=== PATIENT | male | born 1940 | race Caucasian/White ===

== ENCOUNTER 2016-04-03 10:07 | Emergency (ER) | payer MEDICARE ==
[~2016-04-03] VITALS: Ht 172.7 cm; Wt 90.7 kg
[~2016-04-03 10:07] MED LIST: AMLO10TA PO; AMLO10TA82 PO; ASP81TEC PO; ASPI-983 PO; Aspirin PO; CEPH-507 PO; CETI10TA17 PO; CLOP75TA PO; CLPD75T PO; COLE1TAB PO; DABI150C2 PO; DABI150C5 PO; DIGO0.12 PO; DIGO250T15 PO; DILT180C54 PO; DILT180C67 PO; DOCU-161 PO; FLUT16SP22 NS; FURO-125 PO; FURO40TA4 PO; GLUC-113 PO; GLUC1TAB PO; GLUCOSAMINE CONDROIT PO; HYDR-3812 PO; KCL PO; L.AC1CAP6 PO; LOPE2TAB34 PO; LOPERAMIDE 2 MG PO; LOSA25TA21 PO; MESA1.2T PO; METO100T2 PO; METO100T5 PO; MTP100TCR PO; MULT-1029 PO; MULT-298 PO; MULT1TAB63 PO; MUPI22OI2 TP; OMEG-12 PO; OMG1KC PO; POTA10TA PO; POTA20TA15 PO; POTA20TA7 PO; ROSU5TAB PO; SOTA80TA PO; TMSL.4C PO; [UNRECOGNIZED DRUG - OTHER] PO
--- OUTSIDE RECORDS SUMMARY | 2016-04-03 10:13 | XMS REPORT | Continuity of Care Document ---
Author Author [facility] Organization [facility] Address Unknown Phone Unavailable Care Team Providers Care Bandoleer Packer Name Role Phone Dario Parsons PCP [phone] Source Comments Some departments are not documenting in the electronic medical record. If you do not see the information that you expected, contact Release of Information in the Health Information Management department at [phone] for further assistance in locating additional records.[facility] Active Allergies and Adverse Reactions Not on File Current Medications Prescription Sig. Disp. Refills Start End Date Status Date rosuvastatin (CRESTOR) 5 Take 0.5 mg by mouth Active mg tablet daily. digoxin (LANOXIN) 250 mcg Take 0.25 mcg by mouth Active tablet daily. POTASSIUM CHLORIDE Take 20 mEq by mouth Active (KLOR-CON M20 PO) daily. FUROSEMIDE (LASIX PO) Take 40 mg by mouth Active daily. losartan (COZAAR) 25 mg Take 25 mg by mouth Active tablet daily. dabigatran (PRADAXA) 150 Take 150 mg by mouth Active mg capsule twice daily. ASPIRIN PO Take 81 mg by mouth Active daily. MULTIVITAMINS WITH Take by mouth daily. Active FLUORIDE (MULTI-VITAMIN PO) glucosamine(+) 500 mg tab Take 500 mg by mouth Active once. LOPERAMIDE HCL (IMODIUM Take by mouth. Half Active PO) tablet twice a day diltiazem CD (CARDIZEM Take 360 mg by mouth Active CD) 180 mg capsule daily. metoprolol (LOPRESSOR) Take 100 mg by mouth Active 100 mg tablet twice daily. Active Problems Problem Noted Date CHF (congestive heart failure) ([facility]) 03/15/2015 Overview: 03/30/08: CABG x5: EF 45-50%. 12/30/13: C: EF 45-50%. No PCI. Severe [place] CAD. 03/22/15: C: Severe multivessel atherosclerotic CAD. Normal LV size. Mild LV dysfunction EF 45%. No evidence of HF at rest. Previously stented proximal and middle LAD, widely patent, with no in-stent restenosis. Coronary artery disease involving coronary bypass graft of [place] heart with angina pectoris (HCC) HTN (hypertension) 03/15/2015 Hyperlipidemia 03/15/2015 Obesity 03/15/2015 Paroxysmal atrial fibrillation (HCC) 03/12/2015 Social History Tobacco Use Types Packs/Day Years Used Date Never Assessed Last Filed Vital Signs Vital Sign Reading Time Taken Blood Pressure 110/78 03/15/2015 3:03 PM GAMING DIRECTOR Pulse 94 03/15/2015 3:03 PM GAMING DIRECTOR Temperature - - Respiratory Rate - - Height 1.715 m (5' 7.5") 03/15/2015 3:03 PM GAMING DIRECTOR Weight 88.905 kg (196 lb) 03/15/2015 3:03 PM GAMING DIRECTOR Body Mass Index 30.23 03/15/2015 3:03 PM GAMING DIRECTOR Oxygen Saturation - - Plan of Care Health Maintenance Due Date Last Done Comments Physical (Comprehensive) 1947 Exam Pertussis Vaccine 1953 Tetanus Vaccine 07/28/1959 Colorectal Cancer 1992 Screening Shingles Vaccine 2002 Prevnar/Pneumovax (#1) 07/28/2007 Influenza Vaccine 12/02/2015 Results from Last 3 Months Not on file
[2016-04-03] MEDS ORDERED: DIGO250T (10:57)
[2016-04-03] MEDS ORDERED: CEFD300C3 (10:57)
[2016-04-03] MEDS ORDERED: ROSU5TAB9 (10:57)
--- NOTE | 2016-04-03 12:29 | Diagnostic Imaging Report ---
INDICATION: Cough x 3 weeks, night sweats. DISCUSSION: Two views of the chest were obtained with comparison made to 03/24/2015. The lungs remain hyperinflated, consistent with underlying COPD. Stable normal heart size. The left-sided pacemaker and median sternotomy are stable. No focal consolidation, pleural fluid, or pneumothorax. Age-related degenerative changes are noted throughout the thoracic spine. IMPRESSION: No acute cardiopulmonary process. Dictated by: Dictated on workstation # [id number]
--- NOTE | 2016-04-03 12:32 | ED Cough/URI ---
General Chief Complaint: Cough/Cold/Flu Symptoms Stated Complaint: SOB Nursing Triage Note: HAS HAD A COUGH FOR 2 WEEKS HAD RX CALLED IN BY [facility] BACK ON SUNDAY WENT TO URGENT CARE RECEIVED RX OF ANTIBIOTIC INHALER COUGH MEDS NOT ANY BETTER Source: patient, spouse History of Present Illness Time seen by provider: 11:50 Initial Comments C/O PRODUCTIVE COUGH AND CONGESTION FOR 3 WEEKS SEEN ON 03/21/16 FOR ROUTINE EXAM AND WAS GIVEN RX FOR MUCINEX--NO IMPROVEMENT RX FOR Z-PACK CALLED IN ON 03/28/16 WENT TO URGENT CARE ON 03/29/16 FOR SAME--GIVEN RX FOR SYMBICORT, CEFDINIR, COUGH SYRUP. AND Z-PACK WAS STOPPED PT HAS BEEN SHORT OF BREATH HURTS TO BREATHE HAS BEEN ILL WITH THE SAME, BUT NOT THIS BAD PT HAS HAD PNEUMONIA SEVERAL TIMES PCP: DR. BARILLAS Allergies and Home Medications Allergies Coded Allergies: montelukast (Unverified Adverse Reaction, Unknown, 12/17/15) Hallucinations per pt Home Medications Aspirin 81 Mg Tablet.dr 81 MG PO DAILY (Reported) Benzonatate 100 Mg Capsule #30 1-2 TAB PO TID Prescribed by: CHAUNCEY ROSS on 04/03/16 1244 Cefdinir 300 Mg Capsule #20 (Reported) Cephalexin 500 Mg Capsule 10Days 1 CAP PO TID Prescribed by: WANDA BEAVERS on 12/17/15 1158 Cetirizine HCl 10 Mg Tablet 10 MG PO DAILY (Reported) Dabigatran Etexilate Mesylate 150 Mg Capsule 150 MG PO BID (Reported) Digoxin 250 Mcg Tablet 250 MCG PO EVERY EVENING (Reported) Digoxin 250 Mcg Tablet #90 (Reported) Diltiazem HCl 180 Mg Cap.er.24h 360 MG PO DAILY (Reported) TAKES 2 (180 MG) CAPS Fluticasone Propionate 16 Gm [place].susp 1 SPRAY NS BID (Reported) Furosemide 40 Mg Tablet 40 MG PO DAILY (Reported) Gluc 2KCL/Chondr/[place] Hy/Hy Ac 1 Each Capsule 1 CAP PO EVERY EVENING (Reported) Hydrocodone/Acetaminophen 1 Each Tablet #40 1-2 TAB PO Q4H PRN PRN PAIN Prescribed by: WANDA BEAVERS on 12/17/15 1158 L.acidoph & Paracasei,B.lactis 1 Each Capsule 1 CAP PO EVERY EVENING (Reported) Levofloxacin 500 Mg Tablet #10 500 MG PO DAILY Prescribed by: CHAUNCEY ROSS on 04/03/16 1244 Loperamide HCl 2 Mg Tablet 1 MG PO BID (Reported) WILL HOLD IF HE DOESN'T THINK HE NEEDS IT Losartan Potassium 25 Mg Tablet 25 MG PO EVERY EVENING (Reported) Methylprednisolone 4 Mg Tab.ds.pk #1 4 MG PO UD Prescribed by: CHAUNCEY ROSS on 04/03/16 1244 Metoprolol Tartrate 100 Mg Tablet 100 MG PO BID (Reported) Mu-Vits-Min Th/Lycopene/Lutein 1 Each Tablet 1 TAB PO EVERY EVENING (Reported) Mupirocin 22 Gm Oint...g. #1 1 APPLIC TP BID Apply twice a day to scalp and Left ear incisions Prescribed by: WANDA BEAVERS on 12/17/15 1158 Potassium Chloride 20 Meq Tab.er.prt 20 MEQ PO DAILY (Reported) Promethazine HCl/Codeine 118 Ml Syrup #300 5-10 ML PO Q4H Prescribed by: CHAUNCEY ROSS on 04/03/16 1244 Rosuvastatin Calcium 5 Mg Tablet 2.5 MG PO EVERY EVENING (Reported) TAKES 1/2 OF A (5 MG) TABLET Rosuvastatin Calcium 5 Mg Tablet #45 (Reported) Constitutional: see HPI diaphoresis fever EENTM: nose congestion see HPI Respiratory: see HPI cough phlegm short of breath Cardiovascular: no symptoms reportedNo chest pain Gastrointestinal: no symptoms reported Genitourinary: no symptoms reported Musculoskeletal: no symptoms reported Skin: no symptoms reported Psychiatric/Neurological: No Symptoms Reported Hematologic/Lymphatic: No Symptoms Reported Immunological/Allergic: no symptoms reported Past Dgdlsgl-Ffjawk-Hzaesx Hx Patient Social History Alcohol Use: Denies Use Recreational Drug Use: No Smoking Status: Former Smoker Type Used: Cigarettes Former Smoker/When Quit: Dec 30, 2008 Recent Foreign Travel: No Contact w/Someone Who Travel: No Recent Infectious Disease Expo: No Recent Hopitalizations: Yes Physical Abuse Screen: No Sexual Abuse: No Immunizations Up To Date Date of Pneumonia Vaccine: Jan 01, 2008 Date of Influenza Vaccine: Dec 31, 2014 Surgeries HX Surgeries: Yes (5 VESSEL CABG, PACEMAKER X2, STENTS X2) Surgeries: Cardiac, CABG, Coronary Stent, Pacemaker Respiratory Hx Respiratory Disorders: Yes (BI-PAP) Respiratory Disorders: Sleep Apnea Cardiovascular Hx Cardiac Disorders: Yes (PACER, STENTS, BYPASS) Cardiac Disorders: Coronary Artery Disease Neurological Hx Neurological Disorders: No Reproductive System Hx Reproductive Disorders: No Sexually Transmitted Disease: No HIV/AIDS: No Genitourinary Hx Genitourinary Disorders: No Gastrointestinal Hx Gastrointestinal Disorders: Yes Gastrointestinal Disorders: Colitis, Gastroesophageal Reflux, Chronic Diarrhea Musculoskeletal Hx Musculoskeletal Disorders: No Endocrine Hx Endocrine Disorders: No HEENT HX ENT Disorders: Yes (READING GLASSES, PARTIAL DENTURES) Loss of Vision: Bilateral Hearing Impairment: Denies Cancer Hx Cancer: Yes (SKIN CANCER) Cancer: Skin Psychosocial Hx Psychiatric Problems: No Integumentary HX Skin/Integumentary Disorder: No Blood Transfusions Hx Blood Disorders: No Adverse Reaction to a Blood Tr: No Family Medical History Family Medial History: Arthritis Cardiovascular disease Physical Exam Vital Signs Vital Sign - Last 12Hours 04/03/16 10:45 Temp 97.2 Pulse 72 Resp 18 B/P 138/88 Pulse Ox 96 O2 Delivery Room Air Capillary Refill : Less Than 3 Seconds General Appearance: WD/WN no apparent distress other (FREQUENT LOOSE COUGH) HEENT: PERRL/EOMI other (NASAL CONGESTION) Neck: non-tender full range of motion supple normal inspection Respiratory: no respiratory distress no accessory muscle use rales (LEFT BASE) Cardiovascular: normal peripheral pulses regular rate, rhythm no edema no JVD no murmur Gastrointestinal: normal bowel sounds non tender soft Extremities: normal inspection no pedal edema no calf tenderness normal capillary refill Neurologic/Psychiatric: washerette machine operator II-XII nml as tested no motor/sensory deficits alert normal mood/affect oriented x 3 Skin: normal color warm/dry Progress/Results/Core Measures Results/Orders Micro Results Microbiology 04/03/16 Influenza Types A,B Antigen (NEAL) - Final, Complete My Orders Orders-CHAUNCEY ROSS DO Influenza A And B Antigens (04/03/16 11:13) Chest Pa/Lat (2 View) (04/03/16 12:02) Methylprednisolone Sod Succ (Solu-Medrol (04/03/16 12:40) Ceftriaxone Injection (Rocephin Injectio (04/03/16 12:45) Lidocaine 1% Injection (Xylocaine 1% Inj (04/03/16 12:45) Vital Signs/I&O Vital Sign - Last 12Hours 04/03/16 04/03/16 10:45 13:08 Temp 97.2 Pulse 72 66 Resp 18 18 B/P 138/88 Pulse Ox 96 94 O2 Delivery Room Air Room Air Blood Pressure Mean: 105 Diagnostic Imaging Comments CXR--NO ACUTE PROCESS PER RADIOLOGIST REPORT Departure Impression Impression: Primary Impression: Bronchitis Additional Impression: Upper respiratory infection Disposition: 01 HOME, SELF-CARE Condition: Stable Departure-Patient Inst. Referrals: CODEY BARILLAS MD (PCP/Family) Primary Care Physician Patient Instructions: Acute Bronchitis, Adult (DC), Bacterial Upper Respiratory Infection, Adult (DC) Add. Discharge Instructions: TYLENOL AND MOTRIN NEEDED FOR PAIN OR FEVER LOTS OF CLEAR LIQUIDS STOP CEFDINIR CONTINUE SYMBICORT FOLLOW UP WITH YOUR DR IN 3-4 DAYS FOR FURTHER CARE All discharge instructions reviewed with patient and/or family. Voiced understanding. Scripts Benzonatate (Tessalon Perle)100 Mg Capsule1-2 Tab PO TID Cough #30 CAP Prov:CHAUNCEY ROSS DO 04/03/16 Promethazine HCl/Codeine (Promethazine-Codeine Syrup)118 Ml Syrup5-10 Ml PO Q4H Cough #300 ML Prov:CHAUNCEY ROSS DO 04/03/16 Methylprednisolone (Medrol)4 Mg Tab.ds.pk4 Mg PO UD #1 PKG Prov:CHAUNCEY ROSS DO 04/03/16 Levofloxacin (Levaquin)500 Mg Osoocn223 Mg PO DAILY INFECTION #10 TAB Prov:CHAUNCEY ROSS DO 04/03/16 CHAUNCEY ROSS DO Apr 03, 2016 12:32
[2016-04-03] MEDS ORDERED: methylPREDNISolone 125 MG (Solu-MEDROL) VIAL IM STA (12:40)
[2016-04-03] MEDS ORDERED: LEVO500T2 PO (12:44)
[2016-04-03] MEDS ORDERED: METH4TAB PO (12:44)
[2016-04-03] MEDS ORDERED: BENZ-13 PO (12:44)
[2016-04-03] MEDS ORDERED: CODE118S2 PO (12:44)
[2016-04-03] MEDS ORDERED: LIDOCAINE 1% INJ 20 ML (XYLOCAINE) VIAL INJ ONE (12:45)
[2016-04-03] MEDS ORDERED: cefTRIAXone 1 GM (ROCEPHIN) VIAL IM ONE (12:45)
[2016-04-03 13:08] VITALS: BP 130/79
[2016-06-14] MEDS ORDERED: HYDR-3820 PO (12:40)
== END 2016-04-03 13:11 | disposition home or self-care (01) ==
LOC: EDUNIT# 10:07 → ER 10:09
DX: J20.9 Acute bronchitis, unspecified (principal); J06.9 Acute upper respiratory infection, unspecified; I10 Essential (primary) hypertension; Z79.899 Other long term (current) drug therapy; Z79.82 Long term (current) use of aspirin; Z95.1 Presence of aortocoronary bypass graft; Z95.5 Presence of coronary angioplasty implant and graft; Z95.0 Presence of cardiac pacemaker
CPT/HCPCS: 71020; 87804; 96372

== ENCOUNTER 2016-04-27 19:54 | Outpatient (CLI) | payer MEDICARE ==
[~2016-04-27 19:54] MED LIST changes: +BENZ-13 PO; +CEFD300C3; +CODE118S2 PO; +DIGO250T; +LEVO500T2 PO; +METH4TAB PO; +ROSU5TAB9
--- OUTSIDE RECORDS SUMMARY | 2016-04-27 20:17 | XMS REPORT | Continuity of Care Document ---
Author Author [facility] Organization [facility] Address Unknown Phone Unavailable Care Team Providers Care Utility Worker Driver Name Role Phone Dario Parsons PCP [phone] Source Comments Some departments are not documenting in the electronic medical record. If you do not see the information that you expected, contact Release of Information in the Health Information Management department at [phone] for further assistance in locating additional records.[facility] Active Allergies and Adverse Reactions Not [...] Problem Noted Date CHF (congestive heart failure) ([facility]) 03/15/2015 Overview: 03/30/08: CABG x5: EF 45-50%. 12/30/13: C: EF 45-50%. No PCI. Severe [place] CAD. 03/22/15: C: Severe multivessel atherosclerotic CAD. Normal LV size. Mild LV dysfunction EF 45%. No evidence of HF at rest. Previously stented proximal and middle LAD, widely patent, with no in-stent restenosis. Coronary artery disease involving coronary bypass graft of [place] heart with angina pectoris (HCC) HTN (hypertension) 03/15/2015 Hyperlipidemia 03/15/2015 Obesity 03/15/2015 Paroxysmal atrial fibrillation (HCC) 03/12/2015 Social History Tobacco Use Types Packs/Day Years Used Date Never Assessed Last Filed Vital Signs Vital Sign Reading Time Taken Blood Pressure 110/78 03/15/2015 3:03 PM LEAD SCIENTIST Pulse 94 03/15/2015 3:03 PM LEAD SCIENTIST Temperature - - Respiratory Rate - - Height 1.715 m (5' 7.5") 03/15/2015 3:03 PM LEAD SCIENTIST Weight 88.905 kg (196 lb) 03/15/2015 3:03 PM LEAD SCIENTIST Body Mass Index 30.23 03/15/2015 3:03 PM LEAD SCIENTIST Oxygen Saturation - - Plan of Care Health Maintenance Due Date Last Done Comments Physical (Comprehensive) 1947 Exam Pertussis Vaccine 1953 Tetanus Vaccine 07/28/1959 Colorectal Cancer 1992 Screening Shingles Vaccine 2002 Prevnar/Pneumovax (#1) 07/28/2007 Influenza Vaccine 12/02/2015 Results from Last 3 Months Not on file
--- OUTSIDE RECORDS SUMMARY | 2016-04-27 20:18 | XMS REPORT | Continuity of Care Document ---
Author Author [facility] Organization [facility] Address Unknown Phone Unavailable Care Team Providers Care Pharmacy Delivery Driver Name Role Phone Dario Parsons PCP [phone] Source Comments Some departments are not documenting in the electronic medical record. If you do not see the information that you expected, contact Release of Information in the Health Information Management department at [phone] for further assistance in locating additional records.[facility] Active Allergies and Adverse Reactions Not [...] Problem Noted Date CHF (congestive heart failure) ([facility]) 03/15/2015 Overview: 03/30/08: CABG x5: EF 45-50%. 12/30/13: C: EF 45-50%. No PCI. Severe [place] CAD. 03/22/15: C: Severe multivessel atherosclerotic CAD. Normal LV size. Mild LV dysfunction EF 45%. No evidence of HF at rest. Previously stented proximal and middle LAD, widely patent, with no in-stent restenosis. Coronary artery disease involving coronary bypass graft of [place] heart with angina pectoris (HCC) HTN (hypertension) 03/15/2015 Hyperlipidemia 03/15/2015 Obesity 03/15/2015 Paroxysmal atrial fibrillation (HCC) 03/12/2015 Social History Tobacco Use Types Packs/Day Years Used Date Never Assessed Last Filed Vital Signs Vital Sign Reading Time Taken Blood Pressure 110/78 03/15/2015 3:03 PM ROCKET ENGINE TESTER Pulse 94 03/15/2015 3:03 PM ROCKET ENGINE TESTER Temperature - - Respiratory Rate - - Height 1.715 m (5' 7.5") 03/15/2015 3:03 PM ROCKET ENGINE TESTER Weight 88.905 kg (196 lb) 03/15/2015 3:03 PM ROCKET ENGINE TESTER Body Mass Index 30.23 03/15/2015 3:03 PM ROCKET ENGINE TESTER Oxygen Saturation - - Plan of Care Health Maintenance Due Date Last Done Comments Physical (Comprehensive) 1947 Exam Pertussis Vaccine 1953 Tetanus Vaccine 07/28/1959 Colorectal Cancer 1992 Screening Shingles Vaccine 2002 Prevnar/Pneumovax (#1) 07/28/2007 Influenza Vaccine 12/02/2015 Results from Last 3 Months Not on file
[2016-06-14] MEDS ORDERED: HYDR-3820 PO (12:40)
== END 2016-04-28 06:15 | disposition home or self-care (01) ==
LOC: SLEEP 19:54
PROVIDERS: ATTEND Nurse Practitioner Family
DX: G47.33 Obstructive sleep apnea (adult) (pediatric) (principal)
CPT/HCPCS: 95811

== ENCOUNTER 2016-06-08 12:19 | Outpatient (CLI) | payer MEDICARE ==
[~2016-06-08] VITALS: Ht 172.7 cm; Wt 89.6 kg
--- OUTSIDE RECORDS SUMMARY | 2016-06-08 12:24 | XMS REPORT | Continuity of Care Document ---
Author Author [facility] Organization [facility] Address Unknown Phone Unavailable Care Team Providers Care Line Out Man Name Role Phone Dario Parsons PCP [phone] Source Comments Some departments are not documenting in the electronic medical record. If you do not see the information that you expected, contact Release of Information in the Health Information Management department at [phone] for further assistance in locating additional records.[facility] Active Allergies and Adverse Reactions Not [...] Problem Noted Date CHF (congestive heart failure) ([facility]) 03/15/2015 Overview: 03/30/08: CABG x5: EF 45-50%. 12/30/13: C: EF 45-50%. No PCI. Severe [place] CAD. 03/22/15: C: Severe multivessel atherosclerotic CAD. Normal LV size. Mild LV dysfunction EF 45%. No evidence of HF at rest. Previously stented proximal and middle LAD, widely patent, with no in-stent restenosis. Coronary artery disease involving coronary bypass graft of [place] heart with angina pectoris (HCC) HTN (hypertension) 03/15/2015 Hyperlipidemia 03/15/2015 Obesity 03/15/2015 Paroxysmal atrial fibrillation (HCC) 03/12/2015 Social History Tobacco Use Types Packs/Day Years Used Date Never Assessed Last Filed Vital Signs Vital Sign Reading Time Taken Blood Pressure 110/78 03/15/2015 3:03 PM AIRPLANE PILOT PHOTOGRAMMETRY Pulse 94 03/15/2015 3:03 PM AIRPLANE PILOT PHOTOGRAMMETRY Temperature - - Respiratory Rate - - Height 1.715 m (5' 7.5") 03/15/2015 3:03 PM AIRPLANE PILOT PHOTOGRAMMETRY Weight 88.905 kg (196 lb) 03/15/2015 3:03 PM AIRPLANE PILOT PHOTOGRAMMETRY Body Mass Index 30.23 03/15/2015 3:03 PM AIRPLANE PILOT PHOTOGRAMMETRY Oxygen Saturation - - Plan of Care Health Maintenance Due Date Last Done Comments Physical (Comprehensive) 1947 Exam Pertussis Vaccine 1953 Tetanus Vaccine 07/28/1959 Colorectal Cancer 1992 Screening Shingles Vaccine 2002 Prevnar/Pneumovax (#1) 07/28/2007 Influenza Vaccine 12/02/2015 Results from Last 3 Months Not on file
[2016-06-08] MEDS ORDERED: LOPE2CAP14 PO (12:45)
[2016-06-08] MEDS ORDERED: LACT1CAP74 PO (12:45)
[2016-06-08 12:59] VITALS: BP 123/78
[2016-06-14] MEDS ORDERED: HYDR-3820 PO (12:40)
== END 2016-06-08 13:30 | disposition home or self-care (01) ==
LOC: PREOP 12:19
PROVIDERS: ATTEND Surgery
DX: Z01.818 Encounter for other preprocedural examination (principal); C43.59 Malignant melanoma of other part of trunk
CPT/HCPCS: 87081

== ENCOUNTER 2016-06-14 10:12 | Day surgery (SDC) | payer MEDICARE ==
[~2016-06-14] VITALS: Ht 172.7 cm; Wt 89.6 kg
[~2016-06-14 10:12] MED LIST changes: +LACT1CAP74 PO; +LOPE2CAP14 PO
--- OUTSIDE RECORDS SUMMARY | 2016-06-14 10:15 | XMS REPORT | Continuity of Care Document ---
Author Author [facility] Organization [facility] Address Unknown Phone Unavailable Care Team Providers Care Pump Attendant Name Role Phone Dario Parsons PCP [phone] Source Comments Some departments are not documenting in the electronic medical record. If you do not see the information that you expected, contact Release of Information in the Health Information Management department at [phone] for further assistance in locating additional records.[facility] Active Allergies and Adverse Reactions Not [...] Problem Noted Date CHF (congestive heart failure) ([facility]) 03/15/2015 Overview: 03/30/08: CABG x5: EF 45-50%. 12/30/13: C: EF 45-50%. No PCI. Severe [place] CAD. 03/22/15: C: Severe multivessel atherosclerotic CAD. Normal LV size. Mild LV dysfunction EF 45%. No evidence of HF at rest. Previously stented proximal and middle LAD, widely patent, with no in-stent restenosis. Coronary artery disease involving coronary bypass graft of [place] heart with angina pectoris (HCC) HTN (hypertension) 03/15/2015 Hyperlipidemia 03/15/2015 Obesity 03/15/2015 Paroxysmal atrial fibrillation (HCC) 03/12/2015 Social History Tobacco Use Types Packs/Day Years Used Date Never Assessed Last Filed Vital Signs Vital Sign Reading Time Taken Blood Pressure 110/78 03/15/2015 3:03 PM BOTTLE CASER Pulse 94 03/15/2015 3:03 PM BOTTLE CASER Temperature - - Respiratory Rate - - Height 1.715 m (5' 7.5") 03/15/2015 3:03 PM BOTTLE CASER Weight 88.905 kg (196 lb) 03/15/2015 3:03 PM BOTTLE CASER Body Mass Index 30.23 03/15/2015 3:03 PM BOTTLE CASER Oxygen Saturation - - Plan of Care Health Maintenance Due Date Last Done Comments Physical (Comprehensive) 1947 Exam Pertussis Vaccine 1953 Tetanus Vaccine 07/28/1959 Colorectal Cancer 1992 Screening Shingles Vaccine 2002 Prevnar/Pneumovax (#1) 07/28/2007 Influenza Vaccine 12/02/2015 Results from Last 3 Months Not on file
--- OUTSIDE RECORDS SUMMARY | 2016-06-14 10:16 | XMS REPORT | Continuity of Care Document ---
Author Author [facility] Organization [facility] Address Unknown Phone Unavailable Care Team Providers Care Medical Clinic Manager Name Role Phone Dario Parsons PCP [phone] Source Comments Some departments are not documenting in the electronic medical record. If you do not see the information that you expected, contact Release of Information in the Health Information Management department at [phone] for further assistance in locating additional records.[facility] Active Allergies and Adverse Reactions Not [...] Problem Noted Date CHF (congestive heart failure) ([facility]) 03/15/2015 Overview: 03/30/08: CABG x5: EF 45-50%. 12/30/13: C: EF 45-50%. No PCI. Severe [place] CAD. 03/22/15: C: Severe multivessel atherosclerotic CAD. Normal LV size. Mild LV dysfunction EF 45%. No evidence of HF at rest. Previously stented proximal and middle LAD, widely patent, with no in-stent restenosis. Coronary artery disease involving coronary bypass graft of [place] heart with angina pectoris (HCC) HTN (hypertension) 03/15/2015 Hyperlipidemia 03/15/2015 Obesity 03/15/2015 Paroxysmal atrial fibrillation (HCC) 03/12/2015 Social History Tobacco Use Types Packs/Day Years Used Date Never Assessed Last Filed Vital Signs Vital Sign Reading Time Taken Blood Pressure 110/78 03/15/2015 3:03 PM COMPRESSOR BATTERY PELLETS Pulse 94 03/15/2015 3:03 PM COMPRESSOR BATTERY PELLETS Temperature - - Respiratory Rate - - Height 1.715 m (5' 7.5") 03/15/2015 3:03 PM COMPRESSOR BATTERY PELLETS Weight 88.905 kg (196 lb) 03/15/2015 3:03 PM COMPRESSOR BATTERY PELLETS Body Mass Index 30.23 03/15/2015 3:03 PM COMPRESSOR BATTERY PELLETS Oxygen Saturation - - Plan of Care Health Maintenance Due Date Last Done Comments Physical (Comprehensive) 1947 Exam Pertussis Vaccine 1953 Tetanus Vaccine 07/28/1959 Colorectal Cancer 1992 Screening Shingles Vaccine 2002 Prevnar/Pneumovax (#1) 07/28/2007 Influenza Vaccine 12/02/2015 Results from Last 3 Months Not on file
[2016-06-14] MEDS ORDERED: ceFAZolin 1,000 MG (ANCEF) VIAL ONE (10:41)
[2016-06-14] MEDS ORDERED: ceFAZolin 2 GM/50 ML NS 50 ML IV ONE (10:43)
[2016-06-14] MEDS ORDERED: FAMOTIDINE 20MG/2ML IV (PEPCID) ONE (10:45)
[2016-06-14] MEDS ORDERED: ceFAZolin 2 GM/NS 50 ML IV ONE (11:00)
[2016-06-14] MEDS ORDERED: LACTATED RINGERS 1,000 ML IV PRN (11:12)
[2016-06-14] MEDS ORDERED: MIDAZOLAM 2 MG/2 ML (VERSED) VIAL ONE (11:15)
[2016-06-14] MEDS ORDERED: ROCURONIUM 50 MG/5 ML (ZEMURON) VIAL IV ONE (11:15)
[2016-06-14] MEDS ORDERED: LIDOCAINE PF 2% 10 ML (XYLOCAINE) AMP ONE (11:15)
[2016-06-14] MEDS ORDERED: FAMOTIDINE 20MG/2ML IV (PEPCID) IV ONE (11:15)
[2016-06-14] MEDS ORDERED: proPOfol 200 MG/20 ML (DIPRIVAN) VIAL IV ONE (11:15)
[2016-06-14] MEDS ORDERED: ONDANSETRON 4 MG/2 ML (SDV) Z0FRAN ONE (11:15)
[2016-06-14] MEDS ORDERED: LACTATED RINGERS 1,000 ML IV ONE ×2 (11:15→12:41)
[2016-06-14] MEDS ORDERED: SUCCINYLCHOLINE INJ 100 MG/5 ML SYR ONE (11:15)
[2016-06-14] MEDS ORDERED: fentaNYL INJECTION 100 MCG/2 ML AMP ONE (11:16)
[2016-06-14 11:20] VITALS: BP 147/96
[2016-06-14] MEDS ORDERED: BUP/EPI 0.25% 1:200,000 (MARCAINE) 30 ML VIAL ONE (11:25)
--- NOTE | 2016-06-14 11:32 | Progress Note-Pre Operative ---
Pre-Operative Progress Note H&P Reviewed The H&P was reviewed, patient examined and no changes noted. Date H&P Reviewed: Jun 14, 2016 Time H&P Reviewed: 11:31 Pre-Operative Diagnosis: melanoma MACARIO BENJAMIN DO Jun 14, 2016 11:32
--- NOTE | 2016-06-14 12:38 | Progress Note-Post Operative ---
Post-Operative Progess Note Patent Solicitor none Pre-Operative Diagnosis melanoma Post-Operative Diagnosis same pending pathology Post-Op Procedure Note Date of Procedure: Jun 14, 2016 Name of Procedure: Wide excision of Melanoma Anesthesia Type GET Estimated blood loss (mL): less than 10cc Specimen(s) collected melanoma and surrounding tissue MACARIO BENJAMIN DO Jun 14, 2016 12:38
[2016-06-14] MEDS ORDERED: HYDR-3820 PO (12:40)
[2016-06-14] MEDS ORDERED: GLYCOPYRROLATE 0.2 MG/ML (ROBINUL) 2 ML VIAL ONE (12:41)
[2016-06-14] MEDS ORDERED: NEOSTIGMINE (BLOXIVERZ ) 1 MG/1ML 10 ML VIAL ONE (12:41)
[2016-06-14] MEDS ORDERED: SEVOFLURANE (ULTANE) 15 ML INHAL SOLN ONE (12:41)
--- NOTE | 2016-06-14 12:42 | Discharge Inst-Surgical ---
Discharge Inst-Surgical Depart Medication/Instructions New, Converted or Re-Newed RX: RX Given to Pt/Family Patient Instructions Follow up Appt: Make appointment for 1 week. Instructions: No lifting greater than 10 pounds. No strenuous activity. May shower in 24 hours, no tub bath or soaking. Use incentive spirometer at home as directed. No Smoking Skin/Wound Care: May remove bandages. Symptoms to Report: Appetite Changes, Extremity Discoloration, Numbness/Tingling, Swelling Increased , Bleeding Excessive, Eyesight Changes, Pain Increased, Urine Color Change, Constipation(Persistent), Fever over 101 degree F, Pain/Pressure in chest, Urinating Difficulty, Cough Up/Vomit Blood, Heart Beat Irreg/Pounding, Pain/ Pressure in jaw, Cramps in feet or legs, Lightheadedness, Pain/Pressure in shoulder, Diarrhea(Persistent), Memory Changes Suddenly, Questions/Concerns, Weight gain consecutive days, Dizziness/Fainting, Nausea/Vomiting, Shortness of Breath, Weight gain over 2 pounds If questions or concerns contact your physician Or seek help at emergency department. Activity Driving Instructions: No Driving/Refer to Dr. Saravia Discharge Diet: No Restrictions If Any Problems/Questions/Issu: Contact Your Physician, Go to Emergency Room Skin/Wound Care Infection Signs and Symptoms: Increased Redness, Foul Odor of Wound, Increased Drainage, Increased Swelling, Temperature Above 101 F Bathing Instructions: Shower Operative Area Clean and Dry: You May Remove Bandage (in am 3/16) Ice Pack: Ice On and Off Site MACARIO BENJAMIN DO Jun 14, 2016 12:42
[2016-06-14] MEDS ORDERED: HYDROcodone/APAP 10 MG/325 MG (LORTAB) TAB PO PRN (12:45)
[2016-06-14] MEDS ORDERED: ONDANSETRON 4 MG/2 ML (SDV) Z0FRAN IVP PRN (13:00)
[2016-06-14] MEDS ORDERED: MEPERIDINE (DEMEROL) INJ 50 MG/ML IVP PRN (13:00)
[2016-06-14] MEDS ORDERED: morphine INJ 10 MG/ML 1ML (SYR OR VIAL) IVP PRN (13:00)
[2016-06-14 13:45] VITALS: BP 136/84
[2016-06-14 14:15] VITALS: BP 120/78
[2016-06-14 14:40] VITALS: BP 124/78
--- NOTE | 2016-06-15 11:09 | OPERATIVE REPORT ---
PROCEDURE PHYSICIAN: MACARIO MONROY DATE OF PROCEDURE: 06/14/2016 PREOPERATIVE DIAGNOSIS: Melanoma. POSTOPERATIVE DIAGNOSIS: Melanoma. PROCEDURE: Wide excision with extensive undermining SURGEON: Dr. Monroy HOT HEADER OPERATOR: None. ANESTHESIA: General endotracheal tube. SPECIMEN: Melanoma and surrounding tissue. BLOOD LOSS: Less than 10 mL. FLUIDS: Per anesthesia. POSTOPERATIVE: Stable. INDICATION FOR THE PROCEDURE: The patient is a 75-year-old male who had a shave excision done, which showed invasive melanoma down 0.93 mm and needed wide excision. The patient refusing any type of lymph node dissection. FINDINGS: The patient had a melanoma removed and sent to pathology. PROCEDURE NOTE: After informed consent was obtained patient brought to the operating room. He was intubated, placed on table in prone position. He was then sterilely prepped and draped in the normal fashion. I elected to do a rhomboid type incision with a Limberg flap measured this, it was about 4 cm x 3.5 cm on each side making sure to get 1 cm margins around this area of previous excision and then doing the rhomboid incision out distally. Injected with local, then on the area previously drawn made an incision with a number 15 blade, carried down through skin into subcutaneous tissue, deepened down the subcutaneous tissue with Bovie electrocautery. Taking this large area of melanoma and the surrounding tissue off then made an incision to create the flap; again this is a parallelogram incision. Then extensively undermined this flap and then under the edges of the flap going about 2.5 cm out along this whole area. Each side of the parallelogram measured about 4 cm, although one side was 4 centimeters and the other side was 3.5. This extensive undermining was a greater than 60 cm of undermining. Once undermined able to then bring the flap together, rotated the flap into the area of dissection. Used a 0 Prolene at the 3 strongest points to hold this in place. Did a vertical mattress suture to hold this. And then in between this used to 2-0 nylon; used a total of 16 sutures to close this. The area was then cleaned and dried, Dressings placed. The patient was then transferred to recovery room in stable condition. Sponge, instrument and needle correct at the end of the case. Job ID: [id number] Dictated Date: 06/14/2016 15:20:07 Benefits Administrator Date: 06/15/2016 10:58:38 / [email or web address]
== END 2016-06-14 14:40 | disposition home or self-care (01) ==
LOC: SDC 10:12
PROVIDERS: ATTEND Surgery
DX: C43.59 Malignant melanoma of other part of trunk (principal)
CPT/HCPCS: 88305

== ENCOUNTER 2016-07-19 20:46 | Outpatient (CLI) | payer MEDICARE ==
[~2016-07-19 20:46] MED LIST changes: +HYDR-3820 PO
== END 2016-07-20 04:40 | disposition home or self-care (01) ==
LOC: SLEEP 20:46
PROVIDERS: ATTEND Nurse Practitioner Family
DX: G47.33 Obstructive sleep apnea (adult) (pediatric) (principal)
CPT/HCPCS: 95811

== ENCOUNTER → 2016-11-06 | Outpatient (CLI) | payer MEDICARE ==
--- NOTE | 2016-11-06 16:37 | Diagnostic Imaging Report ---
EXAMINATION: PA and lateral views of the chest. COMPARISON: 04/03/2016. INDICATION: Cough and shortness of breath. FINDINGS: The lungs are hyperinflated. There is no significant consolidation. The heart size is normal. No effusion or pneumothorax. The mediastinum and velvet appear unremarkable. Post CABG changes, sternotomy wires, and a pacemaker with two cardiac leads are seen. IMPRESSION: Hyperinflated clear lungs. Dictated by: Dictated on workstation # [id number]
== END ==
LOC: RAD 15:24
PROVIDERS: ATTEND Nurse Practitioner Family
DX: R05 Cough (principal); R06.02 Shortness of breath; Z95.1 Presence of aortocoronary bypass graft; Z95.0 Presence of cardiac pacemaker
CPT/HCPCS: 71020

== ENCOUNTER → 2017-04-10 | Outpatient (CLI) | payer MEDICARE ==
[~2017-04-10] MED LIST changes: +ACHD5005 PO; -HYDR-3812 PO; +METO100T12 PO
--- NOTE | 2017-04-10 15:05 | Diagnostic Imaging Report ---
INDICATION: Cough and pneumonia EXAMINATION: PA and lateral chest There are postop changes from CABG surgery. Patient has a dual-chamber pacemaker. Heart size and pulmonary vascularity are normal. Lungs are clear. There are no effusions or pneumothoraces. IMPRESSION: Post surgical changes in the chest. No acute abnormalities. Dictated by: Dictated on workstation # [id number]
== END ==
LOC: RAD 13:47
PROVIDERS: ATTEND Family Medicine
DX: J18.9 Pneumonia, unspecified organism (principal); J44.9 Chronic obstructive pulmonary disease, unspecified; Z95.1 Presence of aortocoronary bypass graft; Z95.0 Presence of cardiac pacemaker
CPT/HCPCS: 71046

== ENCOUNTER 2018-08-31 14:04 | Inpatient (IN) | payer MEDICARE ==
[~2018-08-31] VITALS: Ht 172.7 cm; Wt 95.3 kg
[~2018-08-31 14:04] MED LIST changes: +APIX5TAB PO; -BENZ-13 PO; +BENZ100C18 PO; +CEFD300C3 PO; -CODE118S2 PO; +CODE118S4 PO; +DIGO250T PO; +FEXO-46 PO; +FLUC150T2 PO; +FLUO30CR36 TP; +GLUC1CAP14 PO; +IPRA3AMP31 INH; +LOPE2TAB64 PO; -LOSA25TA21 PO; +LOSA25TA41 PO; +MESA1.2T2 PO; +MESA10002 RC; +NYST1000 PO; +ROSU5TAB12; +ROSU5TAB12 PO; -ROSU5TAB9; +SULF-222 PO; +SULF1TAB35 PO
[2018-08-31] MEDS ORDERED: ASPIRIN 81 MG CHEW (CHILDREN'S ASA) PO ONE (14:15)
[2018-08-31 14:22] LABS: BASOPHILS % (AUTO) 0 % (0-10); EOSINOPHILS # (AUTO) 0.5 10^3/uL (0.0-0.3); EOSINOPHILS % (AUTO) 4 % (0-10); HEMATOCRIT 39 % (40-54); HEMOGLOBIN 13.5 G/DL (13.3-17.7); LYMPHOCYTES % (AUTO) 24 % (12-44); MEAN CORPUSCULAR HEMOGLOBIN 32 PG (25-34); MEAN CORPUSCULAR HGB CONC 34 G/DL (32-36); MEAN CORPUSCULAR VOLUME 93 FL (80-99); MEAN PLATELET VOLUME 10.1 FL (7.4-10.4); MONOCYTES # (AUTO) 1.2 X 10^3 (0.0-1.0); MONOCYTES % (AUTO) 10 % (0-12); NEUTROPHILS # (AUTO) 7.7 X 10^3 (1.8-7.8); NEUTROPHILS % (AUTO) 62 % (42-75); PLATELET COUNT 171 10^3/uL (130-400); RED CELL DISTRIBUTION WIDTH 14.4 % (10.0-14.5); WHITE BLOOD COUNT 12.5 10^3/uL (4.3-11.0)
[2018-08-31] MEDS ORDERED: RT-ALBUTEROL/IPRATROPIUM 3 ML (DUONEB) VIAL INH ONE (14:30)
[2018-08-31 14:43] LABS: ALANINE AMINOTRANSFERASE 23 U/L (0-55); ALBUMIN 4.1 GM/DL (3.2-4.5); ALKALINE PHOSPHATASE 77 U/L (40-136); BILIRUBIN,TOTAL 1.4 MG/DL (0.1-1.0); BUN/CREATININE RATIO 13; CALCIUM 9.4 MG/DL (8.5-10.1); CARBON DIOXIDE 22 MMOL/L (21-32); CHLORIDE 104 MMOL/L (98-107); CREATININE SERUM 1.11 MG/DL (0.60-1.30); GFR ESTIMATED > 60; GLUCOSE 132 MG/DL (70-105); SODIUM 138 MMOL/L (135-145); TOTAL PROTEIN 7.2 GM/DL (6.4-8.2)
--- NOTE | 2018-08-31 14:45 | Diagnostic Imaging Report ---
INDICATION: Chest pain and shortness of air. TIME OF EXAM: 02:35 p.m. COMPARISON: Correlation is made with prior study 04/14/2017. FINDINGS: The heart is enlarged. There are changes of median sternotomy and CABG. Cardiac pacemaker is in place. Congestive changes are noted in both lungs. Interstitial markings are prominent. No significant effusion or pneumothorax is seen. IMPRESSION: Findings consistent with mild congestive failure. Dictated by: Dictated on workstation # [id number]
[2018-08-31 15:20] LABS: FIBRIN DEGRADATION PRODUCTS 1.64 UG/ML (0.00-0.49); INR 1.2 (0.8-1.4); PROTHROMBIN TIME PATIENT 15.8 SEC (12.2-14.7)
[2018-08-31] MEDS ORDERED: NS 100 ML (IVPB) BAG IV ONE (16:00)
[2018-08-31] MEDS ORDERED: HOLD METFORMIN - RECEIVED CONTRAST 20 ML VIAL IV SCH (16:00)
[2018-08-31] MEDS ORDERED: IOHEXOL 350 MG/ML 100 ML (OMNIPAQUE 350) VIAL IV ONE (16:00)
--- NOTE | 2018-08-31 16:42 | ED Chest Pain ---
General Chief Complaint: Chest Pain Stated Complaint: SOA / CHEST PAIN Nursing Triage Note: PT AMB TO ROOM 5 WITH WITH C/O SOA, COUGH, AND CHEST PAIN SINCE 0430. PT REPORTS CHEST PAIN STARTED ACROSS CHEST BILATERALLY AND RADIATED TO LEFT COLLAR BONE. PT NOW REPORTS EPIGASTRIC PAIN. PT TOOK ONE NITRO AND ONE BABY ASA RUSSIAN RUBBER. Nursing Sepsis Screen: No Definite Risk Source: patient Exam Limitations: no limitations History of Present Illness Date Seen by Provider: Aug 31, 2018 Time Seen by Provider: 14:03 Initial Comments Here with report of cough, shortness of air and chest pain since 4:30 this morning. States that the pain as a tightness across the chest has a bilateral shoulders. Denies nausea or vomiting. Denies sweating. Does have history of heart failure and previous heart attack. Uses BiPAP at night but does not normally require oxygen. O2 sat 88% on arrival. Timing/Duration: 12 hours Severity/Quality: moderate, tightness Location: central Radiation: shoulders Activities at Onset: none Prior CP/Workup: cardiac cath ASA po RUSSIAN RUBBER: No NTG SL RUSSIAN RUBBER: No Associated Symptoms: No back pain, No edema; fatigue; No nausea/vomiting; shortness of breath, weakness Allergies and Home Medications Allergies Coded Allergies: Sulfa (Sulfonamide Antibiotics) (Verified Allergy, Unknown, 08/31/18) montelukast (Unverified Adverse Reaction, Unknown, 06/08/16) Hallucinations per pt Home Medications Apixaban 5 Mg Tablet, 5 MG PO BID, (Reported) Aspirin 81 Mg Tablet.dr, 81 MG PO DAILY, (Reported) Cefdinir 300 Mg Capsule, 300 MG PO BID Prescribed by: CODEY BARILLAS on 04/16/17 0906 Digoxin 250 Mcg Tablet, 250 MCG PO 1900, (Reported) TAKE 2 HOURS AFTER SUPPER Diltiazem HCl 180 Mg Cap.er.24h, 360 MG PO DAILY, (Reported) TAKES 2 (180 MG) CAPS Fexofenadine HCl 180 Mg Tablet, 180 MG PO 1200, (Reported) Fluconazole 150 Mg Tablet, 150 MG PO DAILY, (Reported) 7 DAY THERAPY FILLED 04-10-17 Fluorouracil 30 Gm Cream..g., TP BID, (Reported) 2 WEEK THERAPY START 04-06-17 END 04-20-17 Fluticasone Propionate 16 Gm Kinder.susp, 1 SPRAY NS BID PRN for ALLERGIES, (Reported) Furosemide 40 Mg Tablet, 40 MG PO DAILY, (Reported) Gluc HCl/Csa/Chato Hy/Hyalur AC 1 Each Capsule, 1 CAP PO 1800, (Reported) Ipratropium/Albuterol Sulfate 3 Ml Ampul.neb, 3 ML INH RTQ6HR scheduled 4times daily x 5days, every 2hours PRN short of air, after 5 days scheduled, use every 2hours PRN short of air Prescribed by: CODEY BARILLAS on 04/16/17 0906 Lactobacillus Combination No.4 1 Each Capsule, 1 CAP PO BID, (Reported) Loperamide HCl 2 Mg Tablet, 1 MG PO BID, (Reported) TAKES 1/2 (2MG) TABLET Losartan Potassium 25 Mg Tablet, 25 MG PO 1800, (Reported) Mesalamine 1,000 Mg Supp.rect, 1,000 MG RC HS, (Reported) 60 DAY THEARPY START DATE 04-08-17 Mesalamine 1.2 Gm Tablet.dr, 2.4 GM PO HS, (Reported) TAKES 2 (1.2GM) TABLETS AT BEDTIME WITH FOOD Metoprolol Tartrate 100 Mg Tablet, 100 MG PO BID, (Reported) Multivit-Min/FA/Lycopene/Lut 1 Each Tablet, 1 TAB PO HS, (Reported) Nystatin 100,000 Unit/1 Ml Oral.susp, 5 ML PO QID, (Reported) 10 DAY SUPPLY FILLED 04-10-17 Potassium Chloride 20 Meq Tab.er.prt, 20 MEQ PO DAILY, (Reported) Promethazine HCl/Codeine 118 Ml Syrup, 5-10 ML PO Q6H PRN for COUGH, (Reported) Rosuvastatin Calcium 5 Mg Tablet, 2.5 MG PO 1800, (Reported) TAKES 1/2 (5MG) TABLET Patient Home Medication List Home Medication List Reviewed: Yes Review of Systems Review of Systems Constitutional: see HPI; No chills, No fever EENTM: No Symptoms Reported Respiratory: Orthopnea, Shortness of Air; Denies Wheezing Cardiovascular: See HPI, Edema Gastrointestinal: No Symptoms Reported Genitourinary: No Symptoms Reported Musculoskeletal: no symptoms reported Skin: no symptoms reported All Other Systems Reviewed Negative Unless Noted: Yes Past Gyiaesc-Iswcqg-Sevyce Hx Past Med/Social Hx: Reviewed Nursing Past Med/Soc Hx Patient Social History Alcohol Use: Denies Use Recreational Drug Use: No Smoking Status: Former Smoker Type Used: Cigarettes Former Smoker, Quit: Dec 08, 1991 Recent Foreign Travel: No Contact w/Someone Who Travel: No Recent Infectious Disease Expo: No Recent Hopitalizations: No Immunizations Up To Date Date of Pneumonia Vaccine: Jan 16, 2017 Date of Influenza Vaccine: Jan 08, 2017 Seasonal Allergies Seasonal Allergies: Yes Past Medical History Surgeries: Yes (5 VESSEL CABG, PACEMAKER X2, STENTS X2, skin ca removal) Cardiac, CABG, Coronary Stent, Gallbladder, Pacemaker Respiratory: Yes (BI-PAP) Sleep Apnea, COPD Currently Using CPAP: No Currently Using BIPAP: No Cardiac: Yes (PACER, STENTS, BYPASS) Atrial Fibrillation, Coronary Artery Disease, High Cholesterol, Hypertension Neurological: No Reproductive Disorders: No Sexually Transmitted Disease: No HIV/AIDS: No Genitourinary: No Gastrointestinal: Yes (ULCERATIVE COLITIS) Colitis, Chronic Diarrhea, Polyps Musculoskeletal: No Endocrine: No HEENT: No Loss of Vision: Denies Hearing Impairment: Denies Cancer: Yes (SKIN CANCER) Skin, Melanoma Psychosocial: No Integumentary: Yes (melanoma) Blood Disorders: No Adverse Reaction/Blood Tranf: No (N/A) Family Medical History Reviewed Nursing Family Hx Arthritis Cardiovascular disease Heart Disease, Hypertension Physical Exam Vital Signs Vital Signs - First Documented 08/31/18 08/31/18 08/31/18 08/31/18 14:06 14:08 14:39 17:13 Temp 98.3 Pulse 74 Resp 19 B/P (MAP) 161/83 (109) Pulse Ox 93 O2 Delivery Nasal Cannula O2 Flow Rate 3.00 FiO2 28 Capillary Refill : Less Than 3 Seconds Height, Weight, BMI Height: 5'8.00" Weight: 197lbs. 0.0oz. 89.448579vt; 30.1 BMI Method:Stated General Appearance: WD/WN, Mild Distress HEENT: PERRL/EOMI, Pharynx Normal Neck: Full Range of Motion, Normal Inspection, Non Tender, Supple Respiratory: Accessory Muscle Use, Crackles Cardiovascular: Regular Rate, Rhythm, No Murmur Gastrointestinal: Non Tender, Soft Extremity: Normal Range of Motion, Non Tender, No Calf Tenderness, Pedal Edema (mild bilateral above the ankles) Neurologic/Psychiatric: Alert, Oriented x3, No Motor/Sensory Deficits Skin: Normal Color, Warm/Dry Focused Exam Lactate Level 08/31/18 16:58: Lactic Acid Level 1.44 Lactic Acid Level Laboratory Tests Test 08/31/18 16:58 Lactic Acid Level 1.44 MMOL/L (0.50-2.00) Progress/Results/Core Measures Results/Orders Lab Results Laboratory Tests Test 08/31/18 14:10 08/31/18 16:58 Range/Units White Blood Count 12.5 H 4.3-11.0 10^3/uL Red Blood Count 4.23 L 4.35-5.85 10^6/uL Hemoglobin 13.5 13.3-17.7 G/DL Hematocrit 39 L 40-54 % Mean Corpuscular Volume 93 80-99 FL Mean Corpuscular Hemoglobin 32 25-34 PG Mean Corpuscular Hemoglobin Concent 34 32-36 G/DL Red Cell Distribution Width 14.4 10.0-14.5 % Platelet Count 171 130-400 10^3/uL Mean Platelet Volume 10.1 7.4-10.4 FL Neutrophils (%) (Auto) 62 42-75 % Lymphocytes (%) (Auto) 24 12-44 % Monocytes (%) (Auto) 10 0-12 % Eosinophils (%) (Auto) 4 0-10 % Basophils (%) (Auto) 0 0-10 % Neutrophils # (Auto) 7.7 1.8-7.8 X 10^3 Lymphocytes # (Auto) 3.0 1.0-4.0 X 10^3 Monocytes # (Auto) 1.2 H 0.0-1.0 X 10^3 Eosinophils # (Auto) 0.5 H 0.0-0.3 10^3/uL Basophils # (Auto) 0.0 0.0-0.1 10^3/uL Prothrombin Time 15.8 H 12.2-14.7 SEC INR Comment 1.2 0.8-1.4 Activated Partial Thromboplast Time 40 H 24-35 SEC D-Dimer 1.64 H 0.00-0.49 UG/ML Sodium Level 138 135-145 MMOL/L Potassium Level 4.0 3.6-5.0 MMOL/L Chloride Level 104 98-107 MMOL/L Carbon Dioxide Level 22 21-32 MMOL/L Anion Gap 12 5-14 MMOL/L Blood Urea Nitrogen 14 7-18 MG/DL Creatinine 1.11 0.60-1.30 MG/DL Estimat Glomerular Filtration Rate > 60 BUN/Creatinine Ratio 13 Glucose Level 132 H 70-105 MG/DL Calcium Level 9.4 8.5-10.1 MG/DL Corrected Calcium 9.3 8.5-10.1 MG/DL Magnesium Level 2.0 1.8-2.4 MG/DL Total Bilirubin 1.4 H 0.1-1.0 MG/DL Aspartate Amino Transf (AST/SGOT) 24 5-34 U/L Alanine Aminotransferase (ALT/SGPT) 23 0-55 U/L Alkaline Phosphatase 77 40-136 U/L Myoglobin 66.4 10.0-92.0 NG/ML Troponin I 0.028 <0.028 NG/ML B-Type Natriuretic Peptide 90.8 <100.0 PG/ML Total Protein 7.2 6.4-8.2 GM/DL Albumin 4.1 3.2-4.5 GM/DL Lactic Acid Level 1.44 0.50-2.00 MMOL/L My Orders Orders - SANDEEP WALKER MD Cbc With Automated Diff (08/31/18 14:08) Magnesium (08/31/18 14:08) Chest 1 View, Ap/Pa Only (08/31/18 14:08) Ekg Tracing (08/31/18 14:08) Cardiac Profile 1 (08/31/18 14:08) Comprehensive Metabolic Panel (08/31/18 14:08) Myoglobin Serum (08/31/18 14:08) Protime With Inr (08/31/18 14:08) Partial Thromboplastin Time (08/31/18 14:08) O2 (08/31/18 14:08) Monitor-Rhythm Ecg Trace Only (08/31/18 14:08) Lipid Panel (09/01/18 06:00) Ed Iv/Invasive Line Start (08/31/18 14:08) BNP (08/31/18 14:08) Aspirin Chewable Tablet (Baby Aspirin Ch (08/31/18 14:15) Albuterol/Ipra Inhalation Soln (Duoneb I (08/31/18 14:30) Svn Small Volume Nebulizer (08/31/18 14:26) Fibrin Degradation Products (08/31/18 14:10) Ct Angio Chest W (08/31/18 15:26) Iohexol Injection (Omnipaque 350 Mg/Ml 1 (08/31/18 16:00) Received Contrast (Hold Metformin- Contr (08/31/18 16:00) Ns (Ivpb) (Sodium Chloride 0.9% Ivpb Bag (08/31/18 16:00) Lactic Acid Analyzer (08/31/18 16:54) Blood Culture (08/31/18 16:54) Ed Iv/Invasive Line Start (08/31/18 17:07) Ns Iv 500 Ml (Sodium Chloride 0.9%) (08/31/18 17:07) Medications Given in ED Current Medications Medications Dose Ordered Sig/Sarika Route Start Time Stop Time Status Last Admin Dose Admin Albuterol/ Ipratropium 3 ml ONCE ONCE INH 08/31/18 14:30 08/31/18 14:31 DC 08/31/18 14:38 3 ML Aspirin 324 mg ONCE ONCE PO 08/31/18 14:15 08/31/18 14:16 DC 08/31/18 14:15 324 MG Iohexol 100 ml ONCE ONCE IV 08/31/18 16:00 08/31/18 16:01 DC 08/31/18 15:56 100 ML Sodium Chloride 100 ml ONCE ONCE IV 08/31/18 16:00 08/31/18 16:01 DC 08/31/18 15:56 100 ML Vital Signs/I&O 08/31/18 08/31/18 08/31/18 08/31/18 14:06 14:08 14:19 14:39 Temp 98.3 Pulse 74 B/P (MAP) 161/83 (109) Pulse Ox 93 89 94 O2 Delivery Nasal Cannula Room Air Nasal Cannula Nasal Cannula O2 Flow Rate 3.00 3.0 2.00 FiO2 28 08/31/18 17:13 Pulse 67 Resp 19 B/P (MAP) 119/67 Pulse Ox 93 O2 Delivery Nasal Cannula O2 Flow Rate 3.00 Blood Pressure Mean: 109 Progress Progress Note : Progress Note Seen and evaluated. IV, labs, chest x-ray and EKG ordered. ASA 324 mg by mouth ordered. D-dimer ordered. Monitor patient. We will go ahead and get CT angiogram of the chest due to elevated d-dimer. Patient and family agree with plan. Normal saline 500 mL IV afterwards. There is some concerns of heart failure findings and this may be the cause.This was discussed with patient and family who agree with plan. 1643: CT shows pneumonia without significant failure at this point. Patient does need IV antibiotics. Given the fact that she is requiring oxygen and has heart and lung issues, admission is indicated. This was discussed with patient and family and they agree. I did discuss the case with Dr. Saravia and she accepts patient for admission. Blood cultures and lactic acid been ordered. We will initiate cefepime and vancomycin given that he has pacemaker. I did discuss the case with Dr. Avila. He accepts patient in consult. Findings co ncerns discussed with patient and family who agree with plan. Hemogram IV initiated. Initial ECG Impression Date: Aug 31, 2018 Initial ECG Impression Time: 14:09 Initial ECG Rate: 75 Initial ECG Rhythm: Normal Sinus Comment Ventricular paced rhythm. No evidence of ST elevation VA. Left axis deviation. Unchanged from previous. Interpreted by me. Diagnostic Imaging Diagonstic Imaging: Xray Plain Films/CT/US/NM/MRI: chest Comments NAME: YEHUDA LAW [facility] REC#: [id number] PT STATUS: REG ER : 1940 PHYSICIAN: SANDEEP WALKER MD ADMIT DATE: 08/31/18/ER Signed Date of Exam: 08/31/18 CHEST 1 VIEW, AP/PA ONLY INDICATION: Chest pain and shortness of air. TIME OF EXAM: 02:35 p.m. COMPARISON: Correlation is made with prior study 04/14/2017. FINDINGS: The heart is enlarged. There are changes of median sternotomy and CABG. Cardiac pacemaker is in place. Congestive changes are noted in both lungs. Interstitial markings are prominent. No significant effusion or pneumothorax is seen. IMPRESSION: Findings consistent with mild congestive failure. Dictated by: Dictated on workstation # [id number] Dict: 08/31/18 1441 Trans: 08/31/18 1557 Interpreted by: HECTOR ANNE MD Electronically signed by: HECTOR ANNE MD 08/31/18 1557 Departure Communication (Admissions) Time/Spoke to Admitting Phy: 16:43 Time/Spoke to Consulting Phy: 17:09 Impression Primary Impression: Bilateral pneumonia Qualified Codes: J18.1 - Lobar pneumonia, unspecified organism Additional Impression: Hypoxia Disposition: 09 ADMITTED INPATIENT Condition: Stable Admissions Decision to Admit Reason: Admit from ER (General) Decision to Admit/Date: Aug 31, 2018 Time/Decision to Admit Time: 16:43 Departure-Patient Inst. Referrals: CODEY BARILLAS MD (PCP/Family) Primary Care Physician SANDEEP WALKER MD Aug 31, 2018 16:42
--- NOTE | 2018-08-31 16:43 | Diagnostic Imaging Report ---
PROCEDURE: CT angiography of the chest with contrast. TECHNIQUE: Multiple contiguous axial images were obtained through the chest after uneventful bolus administration of intravenous contrast. 2D reconstructed CTA MIP acquisitions were also performed. Auto Exposure Controls were utilized during the CT exam to meet ALARA standards for radiation dose reduction. INDICATION: Chest pain. COMPARISON: Correlation is made with prior CT chest from 04/20/2015. FINDINGS: Evaluation of the pulmonary arterial system is without evidence of thromboembolism. No definite filling defects are seen within central, lobar or segmental branches. Thoracic aorta appears to be normal caliber. No definite dissection is seen. There is no pericardial fluid. There are very small bilateral pleural effusions, slightly larger on the right. Extensive centrilobular emphysematous changes are identified throughout both lungs. There are some patchy airspace infiltrates in the left upper lobe, as well as to a lesser degree in the right upper lobe. Lower lobes are fairly clear apart from some dependent atelectasis, posteriorly. Upper abdomen does demonstrate some low density enlargement of the right adrenal gland similar to prior exam and consistent with an adenoma. IMPRESSION: 1. No evidence of pulmonary embolism or thoracic aortic dissection. 2. Small bilateral pleural effusions, right greater. 3. Bilateral pulmonary infiltrates, greatest in the left upper lobe as well as underlying centrilobular emphysematous changes. Dictated by: Dictated on workstation # [id number]
[2018-08-31] MEDS ORDERED: NS IV 500 ML 500 ML IV ONE (17:07)
[2018-08-31 17:35] VITALS: BP 125/66
[2018-08-31] MEDS ORDERED: CEFEPIME INJECTION 1,000 MG in WATER (STERILE) FOR INJECTION 10 ML IV ONE (17:45)
[2018-08-31] MEDS ORDERED: RT-ALBUTEROL SULF 2.5 MG/3 ML PRE-MIX VIAL INH STA (18:06)
--- OUTSIDE RECORDS SUMMARY | 2018-08-31 18:46 | XMS REPORT | Clinical Summary ---
Author Author [facility] Organization [facility] Address Unknown Phone Unavailable Care Team Providers Care Blind Hooker Name Role Phone Steffany Parsons MD PCP Source Comments Some departments are not documenting in the electronic medical record. If you d o not see the information that you expected, contact Release of Information in [facility] [employer] Information Management department at [phone] for further assistan ce in locating additional records.[facility] Allergies Not on File Medications End Date Status Medication Sig Dispensed Refills Start Date Active rosuvastatin (CRESTOR) 5 Take 0.5 mg 0 mg tabletIndications: by mouth Paroxysmal atrial daily. fibrillation (HCC), Coronary artery disease involving coronary bypass graft of [place] heart with angina pectoris (HCC) Active digoxin (LANOXIN) 250 mcg Take 0.25 mcg 0 tabletIndications: by mouth Paroxysmal atrial daily. fibrillation (HCC), Coronary artery disease involving coronary bypass graft of [place] heart with angina pectoris (HCC) Active POTASSIUM CHLORIDE Take 20 mEq 0 (KLOR-CON M20 by mouth PO)Indications: daily. Paroxysmal atrial fibrillation (HCC), Coronary artery disease involving coronary bypass graft of [place] heart with angina pectoris (HCC) Active FUROSEMIDE (LASIX Take 40 mg by 0 PO)Indications: mouth daily. Paroxysmal atrial fibrillation (HCC), Coronary artery disease involving coronary bypass graft of [place] heart with angina pectoris (HCC) Active losartan (COZAAR) 25 mg Take 25 mg by 0 tabletIndications: mouth daily. Paroxysmal atrial fibrillation (HCC), Coronary artery disease involving coronary bypass graft of [place] heart with angina pectoris (HCC) Active dabigatran (PRADAXA) 150 Take 150 mg 0 mg capsuleIndications: by mouth Paroxysmal atrial twice daily. fibrillation (HCC), Coronary artery disease involving coronary bypass graft of [place] heart with angina pectoris (HCC) Active ASPIRIN POIndications: Take 81 mg by 0 Paroxysmal atrial mouth daily. fibrillation (HCC), Coronary artery disease involving coronary bypass graft of [place] heart with angina pectoris (HCC) Active MULTIVITAMINS WITH Take by 0 FLUORIDE (MULTI-VITAMIN mouth daily. PO)Indications: Paroxysmal atrial fibrillation (HCC), Coronary artery disease involving coronary bypass graft of [place] heart with angina pectoris (HCC) Active glucosamine(+) 500 mg Take 500 mg 0 tabIndications: by mouth Paroxysmal atrial once. fibrillation (HCC), Coronary artery disease involving coronary bypass graft of [place] heart with angina pectoris (HCC) Active LOPERAMIDE HCL (IMODIUM Take by 0 PO)Indications: mouth. Half Paroxysmal atrial tablet twice fibrillation (HCC), a day Coronary artery disease involving coronary bypass graft of [place] heart with angina pectoris (HCC) Active diltiazem CD (CARDIZEM Take 360 mg 0 CD) 180 mg by mouth capsuleIndications: daily. Paroxysmal atrial fibrillation (HCC), Coronary artery disease involving coronary bypass graft of [place] heart with angina pectoris (HCC) Active metoprolol (LOPRESSOR) Take 100 mg 0 100 mg tabletIndications: by mouth Paroxysmal atrial twice daily. fibrillation (HCC), Coronary artery disease involving coronary bypass graft of [place] heart with angina pectoris (HCC) Active Problems Problem Noted Date CHF (congestive heart failure) 03/15/2015 Overview: 03/30/08: CABG x5: EF 45-50%. 12/30/13: LHC: EF 45-50%. No PCI. Severe [place] CAD. 03/22/15: LHC: Severe multivessel atherosclerotic CAD. Normal LV size. Mild LV dysfunction EF 45%. No evidence of HF at rest. Previously stented proximal and middle LAD, widely patent, with no in-stent restenosis. Coronary artery disease involving coronary bypass graft of [place] heart 03/15/2015 with angina pectoris HTN (hypertension) 03/15/2015 Hyperlipidemia 03/15/2015 Obesity 03/15/2015 Paroxysmal atrial fibrillation 03/12/2015 Social History Date Tobacco Use Types Packs/Day Years Used Never Assessed Sex Assigned at Date Recorded Not on file Industry Job Start Date Occupation Not on file Not on file Not on file Travel End Travel History Travel Start No recent travel history available. Last Filed Vital Signs Time Taken Vital Sign Reading 03/15/2015 3:03 PM [employer] Blood Pressure 110/78 03/15/2015 3:03 PM [employer] Pulse 94 - Temperature - - Respiratory Rate - - Oxygen Saturation - - Inhaled Oxygen - Concentration 03/15/2015 3:03 PM [employer] Weight 88.9 kg (196 lb) 03/15/2015 3:03 PM [employer] Height 171.5 cm (5' 7.5") 03/15/2015 3:03 PM [employer] Body Mass Index 30.24 Plan of Treatment Health Maintenance Due Date Last Done Comments PHYSICAL (COMPREHENSIVE) 1947 EXAM DTAP/TDAP VACCINES (1 - 1960 Tdap) SHINGLES RECOMBINANT 1992 VACCINE (1 of 2) PNEUMONIA (PCV13/PPSV23) 07/28/2007 VACCINES (1 of 2 - PCV13) INFLUENZA VACCINE 12/31/2018 Implants Device Identifier Shelf Expiration Date Model / Serial / Lot Implanted Type Area Manufactur er Pacemaker Pacemaker Results Not on filefrom Last 3 Months Insurance Type Payer Benefit Subscriber ID Effective Phone Address Plan / Dates Group Medicare UHC MEDICARE UHC xxxxxxxxx 2014-P MEDICARE resent REPLACEMEN T Advance Directives Patient has advance care planning documents on file. For more information, valeri goff contact: [facility] [address] [place] [address]
--- OUTSIDE RECORDS SUMMARY | 2018-08-31 18:49 | XMS REPORT | CCD ---
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 Name Role Phone PP Unavailable CCM Unavailable Summary Purpose Interface Exchange Insurance Providers Payer name Policy type / Coverage type Covered constitution party ID Effective Begin Date Effective End Date [facility] Commercial Insurance [id number] Unknown Unknown Family history Father Diagnosis Age At Onset Prostate Cancer Unknown Runs in the family Diagnosis Age At Onset Hypertension Unknown Mother Diagnosis Age At Onset No Family Disease Entered N/A Social History Social History Element Codes Description Effective Dates Marital status Unknown Mary 02/06/2017 Number of children Unknown 5 09/22/[address]: 0715033 Quit over 10 years ago 09/22/[address]: 238923221 Never drinks alcohol 09/22/2014 Allergies, Adverse Reactions, Alerts Substance Reaction Codes Entered Date Inactivated Date Status * NO KNOWN DRUG ALLERGIES Unknown 09/22/2014 No Inactive Date Active Past Medical History Illness Codes Condition Status Onset Date Resolved Date Other acute sinusitis ICD- 9: 461.8 ICD-10: J01.80 Active 02/19/2018 Unknown Other allergic rhinitis ICD-9: 477.8 ICD-10: J30.89 Active 09/27/2016 Unknown Other mucopurulent conjunctivitis, right eye ICD-9: 372.03 ICD-10: H10.021 Active 07/08/2018 Unknown Cellulitis of right upper limb ICD-9: 682.4 ICD-10: L03.113 Active 06/04/2018 Unknown Chronic atrial fibrillation ICD-9: 427.31 ICD-10: I48.2 Active 03/20/2016 Unknown Essential (primary) hypertension ICD-9: 401.9 ICD-10: I10 Active 09/21/2014 Unknown Mixed hyperlipidemia ICD- 9: 272.2 ICD-10: E78.2 Active 04/23/2018 Unknown Allergic rhinitis due to pollen ICD-9: 477.9 ICD-10: J30.1 Active 11/22/2015 Unknown Acute laryngopharyngitis ICD-9: 465.0 ICD-10: J06.0 Active 03/29/2017 Unknown Encounter for general adult medical examination with abnormal findings ICD-9: V70.0 ICD-10: Z00.01 Active 2017 Unknown Cough ICD-9: 786.2 ICD-10: R05 Active 11/22/2015 Unknown Chronic obstructive pulmonary disease with (acute) exacerbation ICD-9: 491.21 ICD-10: J44.1 Active 06/29/2017 Unknown Chronic obstructive pulmonary disease with acute lower respiratory infection ICD-9: 491.22 ICD-10: J44.0 Active 04/10/2017 Unknown Hemoptysis ICD-9: 786.30 ICD-10: R04.2 Active 04/10/2017 Unknown Other chest pain ICD-9: 786.59 ICD-10: R07.89 Active 02/06/2017 Unknown Pneumonia due to Mycoplasma pneumoniae ICD-9: 041.81 ICD-10: J15.7 Active 02/06/2017 Unknown Acute bronchitis due to other specified organisms ICD-9: 466.0 ICD-10: J20.8 Active 09/27/2016 Unknown Gastro-esophageal reflux disease without esophagitis ICD-9: 530.81 ICD-10: K21.9 Active 11/06/2016 Unknown Shortness of breath ICD- 9: 786.05 ICD-10: R06.02 Active 03/28/2015 Unknown Encounter for therapeutic drug level monitoring ICD-9: V58.83 ICD-10: Z51.81 Active 03/20/2016 Unknown 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 ICD-10: K59.1 Active 01/31/2016 Unknown 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 ICD-9: 173.22 ICD-10: C44.229 Active 11/22/2015 Unknown Actinic keratosis ICD-9: 702.0 ICD-10: L57.0 Active 10/13/2015 Unknown Allergic rhinitis due to pollen ICD-9: 477.0 ICD-10: J30.1 Active 10/13/2015 Unknown Neoplasm of unspecified behavior of bone, soft tissue, 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 ICD-10: D49.2 Active 10/13/2015 Unknown Anemia, unspecified ICD- 9: 285.9 ICD-10: D64.9 Active 04/05/2015 Unknown Melena ICD-9: 578.1 ICD-10: K92.1 Active 03/28/2015 Unknown Other lesions of oral mucosa ICD-9: 528.9 ICD-10: K13.79 Active 02/01/2015 Unknown Other seasonal allergic rhinitis ICD-9: 477.9 ICD-10: J30.2 Active 02/01/2015 Unknown Hyperlipidemia Unknown Active 09/22/2014 Unknown Hypertension Unknown Active 09/22/2014 Unknown ACTINIC KERATOSIS ICD-9: 702.0 Active 09/21/2014 Unknown ESSENTIAL HYPERTENSION ICD-9: 401.9 Active 09/21/2014 Unknown HYPERLIPIDEMIA ICD-9: 272.4 Active 09/21/2014 Unknown Problems Condition Codes Effective Dates Condition Status Other acute sinusitis ICD- 9: 461.8 ICD-10: J01.80 02/19/2018 Active Other allergic rhinitis ICD-9: 477.8 ICD-10: J30.89 09/27/2016 Active Other mucopurulent conjunctivitis, right eye ICD-9: 372.03 ICD-10: H10.021 07/08/2018 Active Cellulitis of right upper limb ICD-9: 682.4 ICD-10: L03.113 06/04/2018 Active Chronic atrial fibrillation ICD-9: 427.31 ICD-10: I48.2 03/20/2016 Active Essential (primary) hypertension ICD-9: 401.9 ICD-10: I10 09/21/2014 Active Mixed hyperlipidemia ICD- 9: 272.2 ICD-10: E78.2 04/23/2018 Active Allergic rhinitis due to pollen ICD-9: 477.9 ICD-10: J30.1 11/22/2015 Active Acute laryngopharyngitis ICD-9: 465.0 ICD-10: J06.0 03/29/2017 Active Encounter for general adult medical examination with abnormal findings ICD-9: V70.0 ICD-10: Z00.01 2017 Active Cough ICD-9: 786.2 ICD-10: R05 11/22/2015 Active Chronic obstructive pulmonary disease with (acute) exacerbation ICD-9: 491.21 ICD-10: J44.1 06/29/2017 Active Chronic obstructive pulmonary disease with acute lower respiratory infection ICD-9: 491.22 ICD-10: J44.0 04/10/2017 Active Hemoptysis ICD-9: 786.30 ICD-10: R04.2 04/10/2017 Active Other chest pain ICD-9: 786.59 ICD-10: R07.89 02/06/2017 Active Pneumonia due to Mycoplasma pneumoniae ICD-9: 041.81 ICD-10: J15.7 02/06/2017 Active Acute bronchitis due to other specified organisms ICD-9: 466.0 ICD-10: J20.8 09/27/2016 Active Gastro-esophageal reflux disease without esophagitis ICD-9: 530.81 ICD-10: K21.9 11/06/2016 Active Shortness of breath ICD- 9: 786.05 ICD-10: R06.02 03/28/2015 Active Encounter for therapeutic drug level monitoring ICD-9: V58.83 ICD-10: Z51.81 03/20/2016 Active 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 ICD-10: K59.1 01/31/2016 Active 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 ICD-9: 173.22 ICD-10: C44.229 11/22/2015 Active Actinic keratosis ICD-9: 702.0 ICD-10: L57.0 10/13/2015 Active Allergic rhinitis due to pollen ICD-9: 477.0 ICD-10: J30.1 10/13/2015 Active Neoplasm of unspecified behavior of bone, soft tissue, 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 ICD-10: D49.2 10/13/2015 Active Anemia, unspecified ICD- 9: 285.9 ICD-10: D64.9 04/05/2015 Active Melena ICD-9: 578.1 ICD-10: K92.1 03/28/2015 Active Other lesions of oral mucosa ICD-9: 528.9 ICD-10: K13.79 02/01/2015 Active Other seasonal allergic rhinitis ICD-9: 477.9 ICD-10: J30.2 02/01/2015 Active Hyperlipidemia Unknown 09/22/2014 Active Hypertension Unknown 09/22/2014 Active ACTINIC KERATOSIS ICD-9: 702.0 09/21/2014 Active ESSENTIAL HYPERTENSION ICD-9: 401.9 09/21/2014 Active HYPERLIPIDEMIA ICD-9: 272.4 09/21/2014 Active Medications Medication Codes Instructions Start Date Stop Date Status Fill Instructions doxycycline hyclate 100 mg capsule RxNorm: 6859155 1 Capsule(s) PO BID 07/31/2018 08/09/2018 Active ciprofloxacin 0.3 % eye drops RxNorm: 800065 2 Drop(s) ophthalmic (eye) Q2H while awake x 2 days then Q4H x 5 days 07/08/2018 No Stop Date Active doxycycline hyclate 100 mg capsule RxNorm: 3981499 1 Capsule(s) PO BID 07/08/2018 07/17/2018 Inactive Kenalog 40 mg/mL suspension for injection RxNorm: 5444938 1 Milliliter(s) Inj 07/08/2018 07/08/2018 Inactive Keflex 500 mg capsule RxNorm: 382089 1 Capsule(s) PO TID 07/02/2018 07/08/2018 Inactive dapsone 100 mg tablet RxNorm: 326467 1 Tablet(s) PO daily 06/04/2018 06/10/2018 Inactive doxycycline hyclate 100 mg capsule RxNorm: 5538329 1 Capsule(s) PO BID 06/04/2018 06/13/2018 Inactive Lasix 40 mg tablet RxNorm: 154446 TAKE 1 TABLET DAILY 04/22/2018 No Stop Date Active prednisone 20 mg tablet RxNorm: 396402 2 Tablet(s) PO daily 02/28/2018 03/04/2018 Inactive START TOMORROW Keflex 500 mg capsule RxNorm: 730832 1 Capsule(s) PO TID 02/28/2018 03/09/2018 Inactive ceftriaxone 500 mg solution for injection RxNorm: 5658716 Inj 02/28/2018 02/28/2018 Inactive Kenalog 40 mg/mL suspension for injection RxNorm: 6904862 Milliliter(s) Inj 02/26/2018 02/26/2018 Inactive Keflex 500 mg capsule RxNorm: 409780 1 Capsule(s) PO TID 02/19/2018 02/25/2018 Inactive Klor-Con M20 mEq tablet,extended release RxNorm: 4993447 TAKE 1 TABLET EVERY MORNING 12/04/2017 No Stop Date Active prednisone 20 mg tablet RxNorm: 407306 2 Tablet(s) PO daily 11/16/2017 11/20/2017 Inactive START TOMORROW Zithromax Z-Mau 250 mg tablet RxNorm: 133449 1 Tablet(s) PO daily 11/16/2017 11/20/2017 Inactive Zithromax Z-Mau 250 mg tablet RxNorm: 230641 1 Tablet(s) PO daily 11/16/2017 11/15/2017 Inactive Keflex 500 mg capsule RxNorm: 327240 1 Capsule(s) PO TID 11/09/2017 11/15/2017 Inactive Zithromax 250 mg tablet RxNorm: 104787 [address] day and 1 tab po on day 2-5 Tablet(s) PO 08/30/2017 09/03/2017 Inactive zpack x 1 doxycycline hyclate 100 mg tablet RxNorm: 098875 1 Tablet(s) PO BID 07/09/2017 07/15/2017 Inactive prednisone 20 mg tablet RxNorm: 989026 2 Tablet(s) PO daily 06/29/2017 07/01/2017 Inactive START TOMORROW Kenalog 40 mg/mL suspension for injection RxNorm: 3502512 Milliliter(s) Inj 06/29/2017 06/29/2017 Inactive Lasix 40 mg tablet RxNorm: 675198 TAKE 1 TABLET DAILY 04/24/2017 04/21/2018 Inactive Diflucan 150 mg tablet RxNorm: 728611 1 Tablet(s) PO daily 04/10/2017 04/16/2017 Inactive Bactrim DS 800 mg-160 mg tablet RxNorm: 188436 1 Tablet(s) PO BID 04/10/2017 04/16/2017 Inactive nystatin 100,000 unit/mL oral suspension RxNorm: 271678 5 Milliliter(s) PO QID 04/10/2017 04/19/2017 Inactive cefdinir 300 mg capsule RxNorm: 546030 1 Capsule(s) PO BID 03/28/2017 04/06/2017 Inactive cefdinir 300 mg capsule RxNorm: 636737 1 Capsule(s) PO BID 02/06/2017 02/15/2017 Inactive ceftriaxone 500 mg solution for injection RxNorm: 9751718 Inj 02/06/2017 02/06/2017 Inactive omeprazole 20 mg tablet,delayed release RxNorm: 399157 1 Tablet(s) PO daily 11/06/2016 12/05/2016 Inactive Phenergan with Codeine Syrup RxNorm: 5 Milliliter(s) PO QID as needed 10/30/2016 No Stop Date Active Tessalon Perles 100 mg capsule RxNorm: 746165 1-2 Capsule(s) PO TID as needed cough 10/30/2016 11/08/2016 Inactive Klor-Con M20 mEq tablet,extended release RxNorm: 5882561 TAKE 1 TABLET EVERY MORNING 10/26/2016 12/03/2017 Inactive ceftriaxone 500 mg solution for injection RxNorm: 3806090 1 Milliliter(s) Inj 09/27/2016 09/27/2016 Inactive Phenergan with Codeine Syrup RxNorm: 5 Milliliter(s) PO QID as needed 09/27/2016 10/29/2016 Inactive Tessalon Perles 100 mg capsule RxNorm: 673139 1-2 Capsule(s) PO TID as needed cough 09/27/2016 09/29/2016 Inactive Kenalog 40 mg/mL suspension for injection RxNorm: 5098158 1 Milliliter(s) Inj 09/27/2016 09/27/2016 Inactive Flagyl 500 mg tablet RxNorm: 021211 1 Tablet(s) PO TID 2016 08/05/2016 Inactive Lasix 40 mg tablet RxNorm: 325311 TAKE 1 TABLET DAILY 07/26/2016 04/23/2017 Inactive Zithromax 250 mg tablet RxNorm: 252328 [address] day and 1 tab po on day 2-5 Tablet(s) PO 03/28/2016 03/27/2016 Inactive zpack x 1 Zithromax 250 mg tablet RxNorm: 592594 [address] day and 1 tab po on day 2-5 Tablet(s) PO 03/28/2016 04/01/2016 Inactive zpack x 1 Flagyl 500 mg tablet RxNorm: 079002 1 Tablet(s) PO TID 02/07/2016 02/06/2016 Inactive Flagyl 500 mg tablet RxNorm: 471340 1 Tablet(s) PO TID 02/07/2016 02/16/2016 Inactive Zyrtec-D 5 mg-120 mg tablet,extended release RxNorm: 0909813 1 Tablet(s) PO daily as needed allergies 11/23/2015 No Stop Date Active Imodium A-D 2 mg tablet RxNorm: 222582 1/2 Tablet(s) PO daily 11/23/2015 No Stop Date Active Mucinex 600 mg tablet, extended release RxNorm: 192984 1 Tablet(s) PO BID as needed 11/23/2015 01/21/2016 Inactive Lasix 40 mg tablet RxNorm: 442552 TAKE 1 TABLET DAILY 11/01/2015 07/25/2016 Inactive Klor-Con M20 mEq tablet,extended release RxNorm: 3602733 TAKE 1 TABLET EVERY MORNING 11/01/2015 10/25/2016 Inactive Flonase Allergy Relief 50 mcg/actuation nasal spray,suspension RxNorm: 2 [place] NASAL daily 07/20/2015 No Stop Date Active Kenalog 40 mg/mL suspension for injection RxNorm: 1557064 Milliliter(s) Inj 02/02/2015 02/02/2015 Inactive Crestor 5 mg tablet RxNorm: 332045 1/2 Tablet(s) PO daily 10/05/2014 09/29/2015 Inactive metoprolol tartrate 100 mg tablet RxNorm: 306936 1 Tablet(s) PO BID 10/05/2014 12/28/2015 Inactive Plavix 75 mg tablet RxNorm: 912269 1 Tablet(s) PO daily 10/05/2014 03/07/2015 Inactive Klor-Con M20 mEq tablet,extended release RxNorm: 772999 1 Tablet(s) PO QAM 10/05/2014 10/31/2015 Inactive Lasix 40 mg tablet RxNorm: 153985 1 Tablet(s) PO daily 10/05/2014 10/31/2015 Inactive Efudex 5 % topical cream RxNorm: 575296 1 Application TOP BID x 2 weeks, allow healing x 1 -2 weeks, then reuse 10/05/2014 07/05/2015 Inactive Pradaxa 150 mg capsule RxNorm: 0440505 1 Capsule(s) PO BID 10/05/2014 04/09/2017 Inactive amlodipine 10 mg tablet RxNorm: 778912 1/2 Tablet(s) PO QAM 10/05/2014 07/05/2015 Inactive Efudex 5 % topical cream RxNorm: 818735 1 Application TOP BID x 2 weeks, allow healing x 1 -2 weeks, then reuse 09/22/2014 10/04/2014 Inactive Klor-Con M20 mEq tablet,extended release RxNorm: 907791 1 Tablet(s) PO QAM 09/22/2014 10/04/2014 Inactive Lasix 40 mg tablet RxNorm: 1 Tablet(s) PO daily 09/22/2014 10/04/2014 Inactive Cartia XT 180 mg capsule,extended release RxNorm: 676374 2 Capsule(s) PO daily No Start Date Active cetirizine 10 mg tablet RxNorm: 1408586 1 Tablet(s) PO daily at lunch No Start Date Active Canasa 1,000 mg rectal suppository RxNorm: 994905 [address] seymour No Start Date Active Lialda 1.2 gram tablet,delayed release RxNorm: 610150 1 Tablet(s) PO QHS -Prescried by Dr. Seymour No Start Date Active Centrum Silver oral RxNorm: 84198 oral No Start Date Active Eliquis 5 mg tablet RxNorm: 9562563 1 Tablet(s) PO BID Dr Avila No Start Date Active aspirin 81 mg capsule,delayed release RxNorm: 696493 1 Capsule(s) PO daily No Start Date Active losartan 25 mg tablet RxNorm: 091345 1 Tablet(s) PO QPM at supper No Start Date Active digoxin 250 mcg tablet RxNorm: 389191 1 Tablet(s) PO daily No Start Date Active Vitamin D3 5,000 unit tablet RxNorm: 732690 1 Tablet(s) PO BID No Start Date Active Probiotic oral RxNorm: 6205 oral No Start Date Active Glucosamine Chondroit Complx Advan oral RxNorm: oral No Start Date Active Plavix 75 mg tablet RxNorm: 234599 1 Tablet(s) PO daily No Start Date 10/04/2014 Inactive Klor-Con M20 mEq tablet,extended release RxNorm: 324661 1 Tablet(s) PO QAM No Start Date 09/21/2014 Inactive Imodium oral RxNorm: oral No Start Date 11/22/2015 Inactive Lasix 40 mg tablet RxNorm: 1 Tablet(s) PO daily No Start Date 09/21/2014 Inactive amlodipine 10 mg tablet RxNorm: 421310 1/2 Tablet(s) PO QAM No Start Date 10/04/2014 Inactive Crestor 5 mg tablet RxNorm: 192637 1/2 Tablet(s) PO daily No Start Date 10/04/2014 Inactive Flonase Allergy Relief 50 mcg/actuation nasal spray,suspension RxNorm: 1 [place] NASAL daily No Start Date 07/19/2015 Inactive metoprolol tartrate 100 mg tablet RxNorm: 996911 1 Tablet(s) PO BID No Start Date 10/04/2014 Inactive Probiotic 4X oral RxNorm: 7453903 oral No Start Date 07/06/2015 Inactive Pradaxa 150 mg capsule RxNorm: 5638138 1 Capsule(s) PO BID No Start Date 10/04/2014 Inactive Medication Administered Medication Codes Instructions Start Date Status Kenalog 40 mg/mL suspension for injection RxNorm: 7217087 1Milliliter 07/08/2018 No longer Active ceftriaxone 500 mg solution for injection RxNorm: 5122427 02/28/2018 No longer Active Kenalog 40 mg/mL suspension for injection RxNorm: 7501001 Milliliter 02/26/2018 No longer Active Kenalog 40 mg/mL suspension for injection RxNorm: 2834344 Millil[place] 06/29/2017 No longer Active ceftriaxone 500 mg solution for injection RxNorm: 7091933 02/06/2017 No longer Active Kenalog 40 mg/mL suspension for injection RxNorm: 3167577 1Milliliter 09/27/2016 No longer Active ceftriaxone 500 mg solution for injection RxNorm: 6276466 1Milliliter 09/27/2016 No longer Active Kenalog 40 mg/mL suspension for injection RxNorm: 3093545 Milliliter 02/02/2015 No longer Active Immunizations Vaccine Codes Date Status SHINGARIX CVX: 121 01/07/2018 completed Influenza CVX: 141 12/26/2017 completed Pneumococcal CVX: 133 12/26/2017 completed Influenza CVX: 141 01/10/2017 completed Influenza CVX: 141 01/07/2016 completed Influenza CVX: 141 12/01/2013 completed Zoster CVX: 121 04/02/2011 completed Pneumococcal CVX: 33 09/01/2007 completed Assessments Condition Codes Effective Dates Other allergic rhinitis ICD-10: J30.89 ICD-9: 477.8 07/08/2018 Other mucopurulent conjunctivitis, right eye ICD-10: H10.021 ICD-9: 372.03 07/08/2018 Other acute sinusitis ICD-10: J01.80 ICD-9: 461.8 07/08/2018 Cellulitis of right upper limb ICD-10: L03.113 ICD-9: 682.4 06/04/2018 Chronic atrial fibrillation ICD-10: I48.2 ICD-9: 427.31 04/23/2018 Mixed hyperlipidemia ICD-10: E78.2 ICD-9: 272.2 04/23/2018 Essential (primary) hypertension ICD-10: I10 ICD-9: 401.9 04/23/2018 Allergic rhinitis due to pollen ICD-10: J30.1 ICD-9: 477.9 02/26/2018 Acute laryngopharyngitis ICD-10: J06.0 ICD-9: 465.0 11/09/2017 Encounter for general adult medical examination with abnormal findings ICD-10: Z00.01 ICD-9: V70.0 2017 Cough ICD-10: R05 ICD-9: 786.2 07/23/2017 Chronic obstructive pulmonary disease with (acute) exacerbation ICD-10: J44.1 ICD-9: 491.21 07/09/2017 Chronic obstructive pulmonary disease with acute lower respiratory infection ICD-10: J44.0 ICD-9: 491.22 04/10/2017 Hemoptysis ICD-10: R04.2 ICD-9: 786.30 04/10/2017 Pneumonia due to Mycoplasma pneumoniae ICD-10: J15.7 ICD-9: 041.81 02/06/2017 Other chest pain ICD-10: R07.89 ICD-9: 786.59 02/06/2017 Gastro-esophageal reflux disease without esophagitis ICD-10: K21.9 ICD-9: 530.81 11/06/2016 Shortness of breath ICD-10: R06.02 ICD-9: 786.05 11/06/2016 Acute bronchitis due to other specified organisms ICD-10: J20.8 ICD-9: 466.0 09/27/2016 Encounter for therapeutic drug level monitoring ICD-10: Z51.81 ICD-9: V58.83 03/21/2016 Functional diarrhea ICD-10: K59.1 ICD-9: 564.5 02/01/2016 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 ICD-10: C44.229 ICD-9: 173.22 11/23/2015 Allergic rhinitis due to pollen ICD-10: J30.1 ICD-9: 477.0 10/14/2015 Actinic keratosis ICD-10: L57.0 ICD-9: 702.0 10/14/2015 Neoplasm of unspecified behavior of bone, soft tissue, and skin ICD-10: D49.2 ICD-9: 239.2 10/14/2015 Anemia, unspecified ICD-10: D64.9 ICD-9: 285.9 04/06/2015 Melena ICD-10: K92.1 ICD-9: 578.1 03/29/2015 Other lesions of oral mucosa ICD-10: K13.79 ICD-9: 528.9 02/02/2015 Other seasonal allergic rhinitis ICD-10: J30.2 ICD-9: 477.9 02/02/2015 ACTINIC KERATOSIS ICD-9: 702.0 09/22/2014 ESSENTIAL HYPERTENSION ICD-9: 401.9 09/22/2014 HYPERLIPIDEMIA ICD-9: 272.4 09/22/2014 Reason For Visit Reason For Visit Effective Dates Notes eye discharge 07/08/2018 bite to the hand 06/04/2018 voice change 04/23/2018 sinus congestion 02/28/2018 sinus congestion 02/19/2018 sore throat 11/09/2017 hypertension 10/22/2017 Annual Medicare Wellness Exam 2017 hypertension 07/23/2017 cough 07/09/2017 cough 06/29/2017 Hospital Follow Up 04/23/2017 influenza, pneumonia, hypoxemia sore throat 04/10/2017 sore throat 03/29/2017 chest pain/pressure 02/06/2017 cough 11/06/2016 cough 09/27/2016 hypertension 03/21/2016 diarrhea 02/01/2016 hypertension 11/23/2015 cough 10/14/2015 wound follow up 07/20/2015 he is here today to follow up cryotherapy areas to face and see if they need to be done again. hypertension 07/06/2015 Hospital Follow Up 03/29/2015 hypertension 03/08/2015 cough 02/02/2015 hypertension 09/22/2014 Results Observation Observation Code Item Item Code Result Date Cbc With Differential Ord2 WBC 10.09 K/ul 10/23/2017 Cbc With Differential Ord2 RBC 5.07 M/ul 10/23/2017 Cbc With Differential Ord2 HGB 15.9 g/dl 10/23/2017 Cbc With Differential Ord2 HCT 47.3 % 10/23/2017 Cbc With Differential Ord2 Neut% 58.0 % 10/23/2017 Cbc With Differential Ord2 MCV 93.3 fl 10/23/2017 Cbc With Differential Ord2 Lymph% 27.1 % 10/23/2017 Cbc With Differential Ord2 MCH 31.4 pg 10/23/2017 Cbc With Differential Ord2 [place]% 8.5 % 10/23/2017 Cbc With Differential Ord2 MCHC 33.6 pg 10/23/2017 Cbc With Differential Ord2 Eos% 6.1 % 10/23/2017 Cbc With Differential Ord2 PLT 212 K/ul 10/23/2017 Cbc With Differential Ord2 Baso% 0.3 % 10/23/2017 Cbc With Differential Ord2 RDW 15.5 % 10/23/2017 Cbc With Differential Ord2 Neut ABS# 5.85 K/ul 10/23/2017 Cbc With Differential Ord2 Lymph ABS# 2.73 K/ul 10/23/2017 Cbc With Differential Ord2 [place] ABS# 0.9 K/ul 10/23/2017 Cbc With Differential Ord2 Eos ABS# 0.6 K/ul 10/23/2017 Cbc With Differential Ord2 Baso ABS# 0.0 K/ul 10/23/2017 Digoxin Ord9 DIGOXIN 1.0 NG/ML 10/23/2017 Lipid Ord30 CHOL 108 mg/dL 10/23/2017 Lipid Ord30 HDL 39.0 mg/dl 10/23/2017 Lipid Ord30 TRIG 175 mg/dL 10/23/2017 Lipid Ord30 LDL 34 mg/dL 10/23/2017 Lipid Ord30 C/HDL 2.8 Ratio 10/23/2017 Comp Metabolic Uak945 NA 140 mEq/L 10/23/2017 Comp Metabolic Art497 K 4.1 mEq/L 10/23/2017 Comp Metabolic Dms544 CL 102 mEq/L 10/23/2017 Comp Metabolic Dqb666 CO2 30.0 mEq/L 10/23/2017 Comp Metabolic Uio605 ANION GAP 12 10/23/2017 Comp Metabolic Xcq734 GLUCOSE 124 mg/dL 10/23/2017 Comp Metabolic Jfn086 Creat 1.1 mg/dL 10/23/2017 Comp Metabolic Bed091 eGFR 71 ml/min/1.73m2 10/23/2017 Comp Metabolic Pkl137 BUN 11 mg/dL 10/23/2017 Comp Metabolic Ohx147 B/C Ratio 10.2 Ratio 10/23/2017 Comp Metabolic Knk895 CALCIUM 9.3 mg/dL 10/23/2017 Comp Metabolic Yir139 ALK PHOS 72 U/L 10/23/2017 Comp Metabolic Fbj004 AST(SGOT) 21 U/L 10/23/2017 Comp Metabolic Myr787 ALT(SGPT) 17 U/L 10/23/2017 Comp Metabolic Ihj971 BILI T 0.8 mg/dL 10/23/2017 Comp Metabolic Bru779 ALBUMIN 4.3 g/dL 10/23/2017 Comp Metabolic Oaa128 TPRO 7.4 g/dL 10/23/2017 Comp Metabolic Ftb407 GLOB 3.1 g/dL 10/23/2017 Comp Metabolic Tos199 A/G Ratio 1.4 Ratio 10/23/2017 Comp Metabolic Emk415 Osmo 280 mOsmo 10/23/2017 Tsh Ord6 TSH (3rd IS) 3.37 uIU/mL 10/23/2017 Test(s) Not Perfromed [id number] Test(s) Not Performed Test(s) Not Performed. See Below: 10/23/2017 Test(s) Not Perfromed [id number] TEST NAME PSA 10/23/2017 Test(s) Not Perfromed [id number] Rejection Reason PSA Performed yearly at Dr. Stone's Office 10/23/2017 Test(s) Not Perfromed [id number] COMMENT N/A 10/23/2017 Test(s) Not Perfromed XLL7624 [employer] Gian Johnson 10/23/2017 Comp Metabolic Eus698 NA 137 mEq/L 03/21/2016 Comp Metabolic Cxs240 K 4.6 mEq/L 03/21/2016 Comp Metabolic Dex610 CL 101 mEq/L 03/21/2016 Comp Metabolic Gdc939 CO2 31.0 mEq/L 03/21/2016 Comp Metabolic Fol531 ANION GAP 10 03/21/2016 Comp Metabolic Ewu893 GLUCOSE 106 mg/dL 03/21/2016 Comp Metabolic Rbo883 Creat 1.1 mg/dL 03/21/2016 Comp Metabolic Sxr023 eGFR 69 ml/min/1.73m2 03/21/2016 Comp Metabolic Fit796 BUN 11 mg/dL 03/21/2016 Comp Metabolic Zke775 B/C Ratio 9.9 Ratio 03/21/2016 Comp Metabolic Duy360 CALCIUM 9.5 mg/dL 03/21/2016 Comp Metabolic Ttw617 ALK PHOS 88 U/L 03/21/2016 Comp Metabolic Svo969 AST(SGOT) 21 U/L 03/21/2016 Comp Metabolic Xju406 ALT(SGPT) 15 U/L 03/21/2016 Comp Metabolic Qjv409 BILI T 0.7 mg/dL 03/21/2016 Comp Metabolic Gpn584 ALBUMIN 4.2 g/dL 03/21/2016 Comp Metabolic Hdn518 TPRO 7.9 g/dL 03/21/2016 Comp Metabolic Erg718 GLOB 3.7 g/dL 03/21/2016 Comp Metabolic Iif962 A/G Ratio 1.1 Ratio 03/21/2016 Comp Metabolic Fmh103 Osmo 274 mOsmo 03/21/2016 Lipid Ord30 CHOL 107 mg/dL 03/21/2016 Lipid Ord30 HDL 42.0 mg/dl 03/21/2016 Lipid Ord30 TRIG 178 mg/dL 03/21/2016 Lipid Ord30 LDL 29 mg/dL 03/21/2016 Lipid Ord30 C/HDL 2.5 Ratio 03/21/2016 Tsh Ord6 hTSH II 3.16 uIU/mL 03/21/2016 Digoxin Ord9 DIGOXIN 0.5 NG/ML 03/21/2016 Cbc With Differential Ord2 WBC 12.03 K/ul 03/21/2016 Cbc With Differential Ord2 RBC 4.67 M/ul 03/21/2016 Cbc With Differential Ord2 HGB 14.6 g/dl 03/21/2016 Cbc With Differential Ord2 HCT 43.4 % 03/21/2016 Cbc With Differential Ord2 Neut% 62.9 % 03/21/2016 Cbc With Differential Ord2 MCV 92.9 fl 03/21/2016 Cbc With Differential Ord2 Lymph% 20.9 % 03/21/2016 Cbc With Differential Ord2 MCH 31.3 pg 03/21/2016 Cbc With Differential Ord2 [place]% 10.3 % 03/21/2016 Cbc With Differential Ord2 MCHC 33.6 pg 03/21/2016 Cbc With Differential Ord2 Eos% 5.7 % 03/21/2016 Cbc With Differential Ord2 PLT 224 K/ul 03/21/2016 Cbc With Differential Ord2 Baso% 0.2 % 03/21/2016 Cbc With Differential Ord2 RDW 13.9 % 03/21/2016 Cbc With Differential Ord2 Neut ABS# 7.57 K/ul 03/21/2016 Cbc With Differential Ord2 Lymph ABS# 2.51 K/ul 03/21/2016 Cbc With Differential Ord2 [place] ABS# 1.2 K/ul 03/21/2016 Cbc With Differential Ord2 Eos ABS# 0.7 K/ul 03/21/2016 Cbc With Differential Ord2 Baso ABS# 0.0 K/ul 03/21/2016 Clostridium Diff Tox A/B [id number] Cdiff Negative 02/01/2016 Culture Mrsa [id number] MRSA CULTURE SEE NOTES 04/09/2015 Digoxin Ord9 DIGOXIN 0.9 NG/ML 04/07/2015 Hgb & Hct Ord65 HGB 13.3 g/dL 04/07/2015 Hgb & Hct Ord65 HCT 41.7 % 04/07/2015 Metabolic Ord15 NA 139 mEq/L 04/07/2015 Metabolic Ord15 K 3.7 mEq/L 04/07/2015 Metabolic Ord15 CL 101 mEq/L 04/07/2015 Metabolic Ord15 CO2 31.0 mEq/L 04/07/2015 Metabolic Ord15 GLUCOSE 118 mg/dL 04/07/2015 Metabolic Ord15 BUN 15 mg/dL 04/07/2015 Metabolic Ord15 Creat 1.1 mg/dL 04/07/2015 Metabolic Ord15 B/C Ratio 13.4 Ratio 04/07/2015 Metabolic Ord15 eGFR 68 ml/min/1.73m2 04/07/2015 Metabolic Ord15 Osmo 279 mOsmo 04/07/2015 Metabolic Ord15 ANION GAP 11 04/07/2015 Metabolic Ord15 CALCIUM 9.8 mg/dL 04/07/2015 Hgb & Hct Ord65 HGB 12.4 g/dL 03/30/2015 Hgb & Hct Ord65 HCT 39.4 % 03/30/2015 Magnesium Ord90 Mag 2.2 mg/dL 03/11/2015 Tsh Ord6 hTSH II 2.39 uIU/mL 03/11/2015 Cbc With Differential Ord2 WBC 8.8 K/uL 03/11/2015 Cbc With Differential Ord2 LYM 2.1 K/uL 03/11/2015 Cbc With Differential Ord2 LYM% 23.8 % 03/11/2015 Cbc With Differential Ord2 NEUT/GRAN 6.1 K/uL 03/11/2015 Cbc With Differential Ord2 NEUT/GRAN % 69.7 % 03/11/2015 Cbc With Differential Ord2 MID 0.6 K/uL 03/11/2015 Cbc With Differential Ord2 MID% 6.5 % 03/11/2015 Cbc With Differential Ord2 RBC 4.67 M/uL 03/11/2015 Cbc With Differential Ord2 HGB 14.9 g/dL 03/11/2015 Cbc With Differential Ord2 HCT 46.2 % 03/11/2015 Cbc With Differential Ord2 MCV 99 fL 03/11/2015 Cbc With Differential Ord2 MCH 32 pg 03/11/2015 Cbc With Differential Ord2 MCHC 32 g/dL 03/11/2015 Cbc With Differential Ord2 PLT 215 K/uL 03/11/2015 Cbc With Differential Ord2 RDW 15.3 % 03/11/2015 Digoxin Ord9 DIGOXIN 1.0 NG/ML 03/11/2015 Comp Metabolic Tjl535 NA 142 mEq/L 03/11/2015 Comp Metabolic Kyg832 K 4.4 mEq/L 03/11/2015 Comp Metabolic Quv231 CL 107 mEq/L 03/11/2015 Comp Metabolic Wtb099 CO2 27.0 mEq/L 03/11/2015 Comp Metabolic Pfz015 ANION GAP 12 03/11/2015 Comp Metabolic Zrf700 GLUCOSE 106 mg/dL 03/11/2015 Comp Metabolic Blm478 Creat 1.1 mg/dL 03/11/2015 Comp Metabolic Wim986 eGFR 68 ml/min/1.73m2 03/11/2015 Comp Metabolic Okm077 BUN 16 mg/dL 03/11/2015 Comp Metabolic Bfa696 B/C Ratio 14.3 Ratio 03/11/2015 Comp Metabolic Dup922 CALCIUM 9.5 mg/dL 03/11/2015 Comp Metabolic Tnh631 ALK PHOS 82 U/L 03/11/2015 Comp Metabolic Wwb469 AST(SGOT) 20 U/L 03/11/2015 Comp Metabolic Yvg387 ALT(SGPT) 17 U/L 03/11/2015 Comp Metabolic Gqq998 BILI T 0.4 mg/dL 03/11/2015 Comp Metabolic Pxt552 ALBUMIN 4.0 g/dL 03/11/2015 Comp Metabolic Xiy044 TPRO 6.9 g/dL 03/11/2015 Comp Metabolic Wmx371 GLOB 2.9 g/dL 03/11/2015 Comp Metabolic Xyk146 A/G Ratio 1.4 Ratio 03/11/2015 Comp Metabolic Xlb494 Osmo 285 mOsmo 03/11/2015 Metabolic Ord15 NA 137 mEq/L 12/24/2014 Metabolic Ord15 K 4.2 mEq/L 12/24/2014 Metabolic Ord15 CL 103 mEq/L 12/24/2014 Metabolic Ord15 CO2 29.0 mEq/L 12/24/2014 Metabolic Ord15 GLUCOSE 123 mg/dL 12/24/2014 Metabolic Ord15 BUN 14 mg/dL 12/24/2014 Metabolic Ord15 Creat 1.2 mg/dL 12/24/2014 Metabolic Ord15 B/C Ratio 11.4 Ratio 12/24/2014 Metabolic Ord15 eGFR 61 ml/min/1.73m2 12/24/2014 Metabolic Ord15 Osmo 276 mOsmo 12/24/2014 Metabolic Ord15 ANION GAP 9 12/24/2014 Metabolic Ord15 CALCIUM 9.5 mg/dL 12/24/2014 Magnesium Ord90 Mag 2.1 mg/dL 12/24/2014 Review of Systems System Result Effective Dates Constitutional recent illness 07/08/2018 Constitutional No chills 07/08/2018 Constitutional No diaphoresis 07/08/2018 Constitutional No fever 07/08/2018 Eyes eye erythema 07/08/2018 Ears/Nose/Throat/Neck nasal allergies 07/08/2018 Ears/Nose/Throat/Neck nasal discharge 07/08/2018 Ears/Nose/Throat/Neck postnasal drip 07/08/2018 Ears/Nose/Throat/Neck sinus congestion 07/08/2018 Ears/Nose/Throat/Neck No sore throat 07/08/2018 Cardiovascular No chest pain/pressure 07/08/2018 Cardiovascular No dyspnea 07/08/2018 Respiratory No chest congestion 07/08/2018 Respiratory cough 07/08/2018 Respiratory No dyspnea 07/08/2018 Gastrointestinal No abdominal pain 07/08/2018 Gastrointestinal No constipation 07/08/2018 Gastrointestinal No diarrhea 07/08/2018 Gastrointestinal No nausea 07/08/2018 Gastrointestinal No vomiting 07/08/2018 Dermatologic No rash 07/08/2018 Neurologic No alteration of consciousness 07/08/2018 Neurologic No mental status change 07/08/2018 Constitutional No recent illness 06/04/2018 Constitutional No chills 06/04/2018 Constitutional No diaphoresis 06/04/2018 Constitutional No fever 06/04/2018 Eyes No eye erythema 06/04/2018 Ears/Nose/Throat/Neck No nasal discharge 06/04/2018 Cardiovascular No chest pain/pressure 06/04/2018 Respiratory No cough 06/04/2018 Neurologic No alteration of consciousness 06/04/2018 Neurologic No mental status change 06/04/2018 Dermatologic cellulitis 06/04/2018 Constitutional No anorexia 04/23/2018 Constitutional No night sweats 04/23/2018 Constitutional No chills 04/23/2018 Constitutional No diaphoresis 04/23/2018 Constitutional No insomnia 04/23/2018 Constitutional No malaise 04/23/2018 Eyes No eye discharge 04/23/2018 Eyes No eye erythema 04/23/2018 Ears/Nose/Throat/Neck No headache 04/23/2018 Ears/Nose/Throat/Neck No nasal allergies 04/23/2018 Ears/Nose/Throat/Neck No nasal discharge 04/23/2018 Ears/Nose/Throat/Neck No sore throat 04/23/2018 Ears/Nose/Throat/Neck No otalgia 04/23/2018 Ears/Nose/Throat/Neck No sinus congestion 04/23/2018 Cardiovascular arrhythmia 04/23/2018 Cardiovascular No chest pain/pressure 04/23/2018 Cardiovascular fatigue 04/23/2018 Respiratory No productive sputum 04/23/2018 Respiratory dyspnea on exertion 04/23/2018 Gastrointestinal No abdominal pain 04/23/2018 Gastrointestinal No constipation 04/23/2018 Gastrointestinal No diarrhea 04/23/2018 Genitourinary/Nephrology No dysuria 04/23/2018 Genitourinary/Nephrology No nocturia 04/23/2018 Genitourinary/Nephrology No urinary incontinence 04/23/2018 Musculoskeletal No stiffness 04/23/2018 Musculoskeletal No swelling 04/23/2018 Musculoskeletal No muscle weakness 04/23/2018 Musculoskeletal No myalgias 04/23/2018 Dermatologic No rash 04/23/2018 Dermatologic sores 04/23/2018 Neurologic No alteration of consciousness 04/23/2018 Psychiatric No anxiety 04/23/2018 Psychiatric No depression 04/23/2018 Constitutional No recent illness 04/23/2018 Constitutional No fatigue 04/23/2018 Ears/Nose/Throat/Neck hoarseness 04/23/2018 Constitutional recent illness 02/28/2018 Constitutional No chills 02/28/2018 Constitutional No diaphoresis 02/28/2018 Constitutional No fever 02/28/2018 Eyes No eye erythema 02/28/2018 Ears/Nose/Throat/Neck nasal allergies 02/28/2018 Ears/Nose/Throat/Neck nasal discharge 02/28/2018 Ears/Nose/Throat/Neck postnasal drip 02/28/2018 Ears/Nose/Throat/Neck sinus congestion 02/28/2018 Ears/Nose/Throat/Neck No sore throat 02/28/2018 Cardiovascular No chest pain/pressure 02/28/2018 Cardiovascular No dyspnea 02/28/2018 Respiratory No chest congestion 02/28/2018 Respiratory cough 02/28/2018 Respiratory No dyspnea 02/28/2018 Gastrointestinal No abdominal pain 02/28/2018 Gastrointestinal No constipation 02/28/2018 Gastrointestinal No diarrhea 02/28/2018 Gastrointestinal No nausea 02/28/2018 Gastrointestinal No vomiting 02/28/2018 Dermatologic No rash 02/28/2018 Neurologic No alteration of consciousness 02/28/2018 Neurologic No mental status change 02/28/2018 Constitutional recent illness 02/19/2018 Constitutional No chills 02/19/2018 Constitutional No diaphoresis 02/19/2018 Constitutional No fever 02/19/2018 Eyes No eye erythema 02/19/2018 Ears/Nose/Throat/Neck nasal allergies 02/19/2018 Ears/Nose/Throat/Neck nasal discharge 02/19/2018 Ears/Nose/Throat/Neck postnasal drip 02/19/2018 Ears/Nose/Throat/Neck sinus congestion 02/19/2018 Ears/Nose/Throat/Neck No sore throat 02/19/2018 Cardiovascular No chest pain/pressure 02/19/2018 Cardiovascular No dyspnea 02/19/2018 Respiratory No chest congestion 02/19/2018 Respiratory cough 02/19/2018 Respiratory No dyspnea 02/19/2018 Gastrointestinal No abdominal pain 02/19/2018 Gastrointestinal No constipation 02/19/2018 Gastrointestinal No diarrhea 02/19/2018 Gastrointestinal No nausea 02/19/2018 Gastrointestinal No vomiting 02/19/2018 Dermatologic No rash 02/19/2018 Neurologic No alteration of consciousness 02/19/2018 Neurologic No mental status change 02/19/2018 Constitutional recent illness 11/09/2017 Constitutional No chills 11/09/2017 Constitutional No diaphoresis 11/09/2017 Constitutional No fever 11/09/2017 Eyes No eye erythema 11/09/2017 Ears/Nose/Throat/Neck nasal allergies 11/09/2017 Ears/Nose/Throat/Neck nasal discharge 11/09/2017 Ears/Nose/Throat/Neck postnasal drip 11/09/2017 Ears/Nose/Throat/Neck sinus congestion 11/09/2017 Ears/Nose/Throat/Neck sore throat 11/09/2017 Cardiovascular No chest pain/pressure 11/09/2017 Cardiovascular No dyspnea 11/09/2017 Respiratory No chest congestion 11/09/2017 Respiratory cough 11/09/2017 Respiratory No dyspnea 11/09/2017 Gastrointestinal No constipation 11/09/2017 Gastrointestinal No diarrhea 11/09/2017 Gastrointestinal No nausea 11/09/2017 Gastrointestinal No vomiting 11/09/2017 Dermatologic No rash 11/09/2017 Neurologic No alteration of consciousness 11/09/2017 Neurologic No mental status change 11/09/2017 Constitutional No anorexia 10/22/2017 Constitutional No night sweats 10/22/2017 Constitutional No chills 10/22/2017 Constitutional No diaphoresis 10/22/2017 Constitutional No insomnia 10/22/2017 Constitutional No malaise 10/22/2017 Eyes No eye discharge 10/22/2017 Eyes No eye erythema 10/22/2017 Ears/Nose/Throat/Neck No headache 10/22/2017 Ears/Nose/Throat/Neck No nasal allergies 10/22/2017 Ears/Nose/Throat/Neck No nasal discharge 10/22/2017 Ears/Nose/Throat/Neck No sore throat 10/22/2017 Ears/Nose/Throat/Neck No otalgia 10/22/2017 Ears/Nose/Throat/Neck No sinus congestion 10/22/2017 Cardiovascular arrhythmia 10/22/2017 Cardiovascular No chest pain/pressure 10/22/2017 Cardiovascular fatigue 10/22/2017 Respiratory No productive sputum 10/22/2017 Respiratory dyspnea on exertion 10/22/2017 Gastrointestinal No abdominal pain 10/22/2017 Gastrointestinal No constipation 10/22/2017 Gastrointestinal No diarrhea 10/22/2017 Genitourinary/Nephrology No dysuria 10/22/2017 Genitourinary/Nephrology No nocturia 10/22/2017 Genitourinary/Nephrology No urinary incontinence 10/22/2017 Musculoskeletal No stiffness 10/22/2017 Musculoskeletal No swelling 10/22/2017 Musculoskeletal No muscle weakness 10/22/2017 Musculoskeletal No myalgias 10/22/2017 Dermatologic No rash 10/22/2017 Dermatologic sores 10/22/2017 Neurologic No alteration of consciousness 10/22/2017 Psychiatric No anxiety 10/22/2017 Psychiatric No depression 10/22/2017 Constitutional No recent illness 2017 Constitutional No chills 2017 Constitutional No diaphoresis 2017 Constitutional No fever 2017 Eyes No eye erythema 2017 Ears/Nose/Throat/Neck No nasal discharge 2017 Cardiovascular No chest pain/pressure 2017 Cardiovascular No dyspnea 2017 Respiratory No cough 2017 Respiratory No dyspnea 2017 Neurologic No alteration of consciousness 2017 Neurologic No mental status change 2017 Constitutional No anorexia 07/23/2017 Constitutional No night sweats 07/23/2017 Constitutional No chills 07/23/2017 Constitutional No diaphoresis 07/23/2017 Constitutional No insomnia 07/23/2017 Constitutional No malaise 07/23/2017 Eyes No eye discharge 07/23/2017 Eyes No eye erythema 07/23/2017 Ears/Nose/Throat/Neck No headache 07/23/2017 Ears/Nose/Throat/Neck nasal allergies 07/23/2017 Ears/Nose/Throat/Neck nasal discharge 07/23/2017 Ears/Nose/Throat/Neck No sore throat 07/23/2017 Ears/Nose/Throat/Neck No otalgia 07/23/2017 Ears/Nose/Throat/Neck No sinus congestion 07/23/2017 Cardiovascular arrhythmia 07/23/2017 Cardiovascular No chest pain/pressure 07/23/2017 Cardiovascular fatigue 07/23/2017 Respiratory No productive sputum 07/23/2017 Respiratory dyspnea on exertion 07/23/2017 Gastrointestinal No abdominal pain 07/23/2017 Gastrointestinal No constipation 07/23/2017 Gastrointestinal No diarrhea 07/23/2017 Genitourinary/Nephrology No dysuria 07/23/2017 Genitourinary/Nephrology No nocturia 07/23/2017 Genitourinary/Nephrology No urinary incontinence 07/23/2017 Musculoskeletal No stiffness 07/23/2017 Musculoskeletal No swelling 07/23/2017 Musculoskeletal No muscle weakness 07/23/2017 Musculoskeletal No myalgias 07/23/2017 Dermatologic No rash 07/23/2017 Dermatologic sores 07/23/2017 Neurologic No alteration of consciousness 07/23/2017 Psychiatric No anxiety 07/23/2017 Psychiatric No depression 07/23/2017 Cardiovascular hypertension 07/23/2017 Respiratory cough 07/23/2017 Constitutional recent illness 07/09/2017 Constitutional No anorexia 07/09/2017 Constitutional No night sweats 07/09/2017 Constitutional No chills 07/09/2017 Constitutional No diaphoresis 07/09/2017 Constitutional No fatigue 07/09/2017 Constitutional No fever 07/09/2017 Constitutional No insomnia 07/09/2017 Constitutional No malaise 07/09/2017 Constitutional No weight loss 07/09/2017 Constitutional No weight gain 07/09/2017 Eyes No eye discharge 07/09/2017 Eyes No eye erythema 07/09/2017 Ears/Nose/Throat/Neck nasal allergies 07/09/2017 Ears/Nose/Throat/Neck nasal discharge 07/09/2017 Cardiovascular No chest pain/pressure 07/09/2017 Cardiovascular No edema 07/09/2017 Respiratory productive sputum 07/09/2017 Respiratory cough 07/09/2017 Respiratory dyspnea on exertion 07/09/2017 Gastrointestinal No abdominal pain 07/09/2017 Genitourinary/Nephrology No dysuria 07/09/2017 Musculoskeletal No joint complaint 07/09/2017 Dermatologic No rash 07/09/2017 Neurologic No alteration of consciousness 07/09/2017 Constitutional recent illness 06/29/2017 Constitutional No anorexia 06/29/2017 Constitutional No night sweats 06/29/2017 Constitutional No chills 06/29/2017 Constitutional No diaphoresis 06/29/2017 Constitutional No fatigue 06/29/2017 Constitutional No fever 06/29/2017 Constitutional No insomnia 06/29/2017 Constitutional No malaise 06/29/2017 Constitutional No weight gain 06/29/2017 Constitutional No weight loss 06/29/2017 Eyes No eye discharge 06/29/2017 Eyes No eye erythema 06/29/2017 Ears/Nose/Throat/Neck nasal allergies 06/29/2017 Ears/Nose/Throat/Neck nasal discharge 06/29/2017 Cardiovascular No chest pain/pressure 06/29/2017 Cardiovascular No edema 06/29/2017 Respiratory productive sputum 06/29/2017 Respiratory dyspnea on exertion 06/29/2017 Respiratory cough 06/29/2017 Gastrointestinal No abdominal pain 06/29/2017 Musculoskeletal No joint complaint 06/29/2017 Genitourinary/Nephrology No dysuria 06/29/2017 Dermatologic No rash 06/29/2017 Neurologic No alteration of consciousness 06/29/2017 Constitutional recent illness 04/23/2017 Constitutional No chills 04/23/2017 Constitutional No diaphoresis 04/23/2017 Constitutional No fever 04/23/2017 Eyes No blindness 04/23/2017 Ears/Nose/Throat/Neck nasal allergies 04/23/2017 Ears/Nose/Throat/Neck nasal discharge 04/23/2017 Ears/Nose/Throat/Neck postnasal drip 04/23/2017 Cardiovascular No chest pain/pressure 04/23/2017 Cardiovascular No dyspnea 04/23/2017 Respiratory chest congestion 04/23/2017 Respiratory cough 04/23/2017 Respiratory No dyspnea 04/23/2017 Respiratory wheezing 04/23/2017 Gastrointestinal No abdominal pain 04/23/2017 Gastrointestinal No nausea 04/23/2017 Gastrointestinal No vomiting 04/23/2017 Dermatologic No rash 04/23/2017 Neurologic No alteration of consciousness 04/23/2017 Neurologic No mental status change 04/23/2017 Constitutional recent illness 04/10/2017 Constitutional No chills 04/10/2017 Constitutional No diaphoresis 04/10/2017 Constitutional fatigue 04/10/2017 Constitutional No fever 04/10/2017 Eyes No blindness 04/10/2017 Ears/Nose/Throat/Neck No headache 04/10/2017 Ears/Nose/Throat/Neck nasal allergies 04/10/2017 Ears/Nose/Throat/Neck nasal discharge 04/10/2017 Ears/Nose/Throat/Neck sore throat 04/10/2017 Ears/Nose/Throat/Neck postnasal drip 04/10/2017 Cardiovascular No chest pain/pressure 04/10/2017 Cardiovascular No dyspnea 04/10/2017 Cardiovascular No fatigue 04/10/2017 Respiratory chest congestion 04/10/2017 Respiratory cough 04/10/2017 Respiratory No dyspnea 04/10/2017 Respiratory wheezing 04/10/2017 Gastrointestinal No abdominal pain 04/10/2017 Gastrointestinal No diarrhea 04/10/2017 Gastrointestinal No nausea 04/10/2017 Gastrointestinal No vomiting 04/10/2017 Musculoskeletal No stiffness 04/10/2017 Musculoskeletal No arthralgia(s) 04/10/2017 Dermatologic No rash 04/10/2017 Dermatologic No sores 04/10/2017 Neurologic No alteration of consciousness 04/10/2017 Neurologic No mental status change 04/10/2017 Psychiatric No anxiety 04/10/2017 Psychiatric No depression 04/10/2017 Respiratory hemoptysis 04/10/2017 Respiratory dyspnea on exertion 04/10/2017 Constitutional recent illness 03/29/2017 Constitutional chills 03/29/2017 Constitutional No diaphoresis 03/29/2017 Constitutional No fever 03/29/2017 Eyes No eye erythema 03/29/2017 Ears/Nose/Throat/Neck nasal allergies 03/29/2017 Ears/Nose/Throat/Neck nasal discharge 03/29/2017 Ears/Nose/Throat/Neck postnasal drip 03/29/2017 Ears/Nose/Throat/Neck sinus congestion 03/29/2017 Ears/Nose/Throat/Neck sore throat 03/29/2017 Cardiovascular No chest pain/pressure 03/29/2017 Cardiovascular No dyspnea 03/29/2017 Respiratory No chest congestion 03/29/2017 Respiratory cough 03/29/2017 Respiratory No dyspnea 03/29/2017 Gastrointestinal No constipation 03/29/2017 Gastrointestinal No diarrhea 03/29/2017 Gastrointestinal No nausea 03/29/2017 Gastrointestinal No vomiting 03/29/2017 Dermatologic No rash 03/29/2017 Neurologic No alteration of consciousness 03/29/2017 Neurologic No mental status change 03/29/2017 Constitutional recent illness 02/06/2017 Constitutional fatigue 02/06/2017 Ears/Nose/Throat/Neck No headache 02/06/2017 Ears/Nose/Throat/Neck sore throat 02/06/2017 Cardiovascular No chest pain/pressure 02/06/2017 Cardiovascular No fatigue 02/06/2017 Respiratory cough 02/06/2017 Respiratory chest congestion 02/06/2017 Psychiatric No anxiety 02/06/2017 Psychiatric No depression 02/06/2017 Dermatologic No rash 02/06/2017 Dermatologic No sores 02/06/2017 Gastrointestinal No abdominal pain 02/06/2017 Gastrointestinal No diarrhea 02/06/2017 Musculoskeletal No stiffness 02/06/2017 Musculoskeletal No arthralgia(s) 02/06/2017 Constitutional No chills 02/06/2017 Constitutional No diaphoresis 02/06/2017 Constitutional No fever 02/06/2017 Eyes No blindness 02/06/2017 Ears/Nose/Throat/Neck nasal allergies 02/06/2017 Ears/Nose/Throat/Neck nasal discharge 02/06/2017 Ears/Nose/Throat/Neck postnasal drip 02/06/2017 Cardiovascular No dyspnea 02/06/2017 Respiratory No dyspnea 02/06/2017 Respiratory wheezing 02/06/2017 Gastrointestinal No nausea 02/06/2017 Gastrointestinal No vomiting 02/06/2017 Neurologic No alteration of consciousness 02/06/2017 Neurologic No mental status change 02/06/2017 Constitutional recent illness 11/06/2016 Constitutional No chills 11/06/2016 Constitutional No diaphoresis 11/06/2016 Constitutional No fever 11/06/2016 Eyes No eye erythema 11/06/2016 Ears/Nose/Throat/Neck nasal allergies 11/06/2016 Ears/Nose/Throat/Neck nasal discharge 11/06/2016 Ears/Nose/Throat/Neck postnasal drip 11/06/2016 Cardiovascular No chest pain/pressure 11/06/2016 Cardiovascular No dyspnea 11/06/2016 Respiratory chest congestion 11/06/2016 Respiratory cough 11/06/2016 Respiratory No dyspnea 11/06/2016 Gastrointestinal No abdominal pain 11/06/2016 Gastrointestinal No nausea 11/06/2016 Gastrointestinal No vomiting 11/06/2016 Dermatologic No rash 11/06/2016 Neurologic No alteration of consciousness 11/06/2016 Neurologic No mental status change 11/06/2016 Respiratory wheezing 11/06/2016 Constitutional recent illness 09/27/2016 Constitutional No chills 09/27/2016 Constitutional No diaphoresis 09/27/2016 Constitutional No fever 09/27/2016 Eyes No eye erythema 09/27/2016 Ears/Nose/Throat/Neck nasal allergies 09/27/2016 Ears/Nose/Throat/Neck nasal discharge 09/27/2016 Ears/Nose/Throat/Neck postnasal drip 09/27/2016 Ears/Nose/Throat/Neck sore throat 09/27/2016 Cardiovascular No chest pain/pressure 09/27/2016 Cardiovascular No dyspnea 09/27/2016 Respiratory cough 09/27/2016 Respiratory No dyspnea 09/27/2016 Respiratory chest congestion 09/27/2016 Gastrointestinal No abdominal pain 09/27/2016 Gastrointestinal No constipation 09/27/2016 Gastrointestinal diarrhea 09/27/2016 Gastrointestinal No vomiting 09/27/2016 Gastrointestinal No nausea 09/27/2016 Neurologic No alteration of consciousness 09/27/2016 Neurologic No mental status change 09/27/2016 Dermatologic No rash 09/27/2016 Constitutional No anorexia 03/21/2016 Constitutional No night sweats 03/21/2016 Constitutional No chills 03/21/2016 Constitutional No diaphoresis 03/21/2016 Constitutional No insomnia 03/21/2016 Constitutional No malaise 03/21/2016 Eyes No eye discharge 03/21/2016 Eyes No eye erythema 03/21/2016 Ears/Nose/Throat/Neck No headache 03/21/2016 Ears/Nose/Throat/Neck No nasal allergies 03/21/2016 Ears/Nose/Throat/Neck No nasal discharge 03/21/2016 Ears/Nose/Throat/Neck No sore throat 03/21/2016 Ears/Nose/Throat/Neck No otalgia 03/21/2016 Ears/Nose/Throat/Neck No sinus congestion 03/21/2016 Cardiovascular arrhythmia 03/21/2016 Cardiovascular No chest pain/pressure 03/21/2016 Cardiovascular fatigue 03/21/2016 Respiratory No productive sputum 03/21/2016 Respiratory dyspnea on exertion 03/21/2016 Gastrointestinal No abdominal pain 03/21/2016 Gastrointestinal No constipation 03/21/2016 Gastrointestinal No diarrhea 03/21/2016 Genitourinary/Nephrology No dysuria 03/21/2016 Genitourinary/Nephrology No nocturia 03/21/2016 Genitourinary/Nephrology No urinary incontinence 03/21/2016 Musculoskeletal No stiffness 03/21/2016 Musculoskeletal No swelling 03/21/2016 Musculoskeletal No muscle weakness 03/21/2016 Musculoskeletal No myalgias 03/21/2016 Dermatologic No rash 03/21/2016 Dermatologic sores 03/21/2016 Neurologic No alteration of consciousness 03/21/2016 Psychiatric No anxiety 03/21/2016 Psychiatric No depression 03/21/2016 Gastrointestinal abdominal pain 02/01/2016 Gastrointestinal No constipation 02/01/2016 Gastrointestinal diarrhea 02/01/2016 Constitutional No recent illness 02/01/2016 Constitutional No night sweats 02/01/2016 Constitutional No anorexia 02/01/2016 Constitutional No chills 02/01/2016 Constitutional No diaphoresis 02/01/2016 Constitutional No fatigue 02/01/2016 Constitutional No fever 02/01/2016 Constitutional No insomnia 02/01/2016 Constitutional No malaise 02/01/2016 Constitutional No weight loss 02/01/2016 Constitutional No weight gain 02/01/2016 Respiratory No productive sputum 02/01/2016 Respiratory No cough 02/01/2016 Ears/Nose/Throat/Neck No dizziness 02/01/2016 Ears/Nose/Throat/Neck No headache 02/01/2016 Cardiovascular No chest pain/pressure 02/01/2016 Eyes No eye discharge 02/01/2016 Eyes No eye erythema 02/01/2016 Genitourinary/Nephrology No dysuria 02/01/2016 Musculoskeletal No joint complaint 02/01/2016 Dermatologic No rash 02/01/2016 Neurologic No alteration of consciousness 02/01/2016 Constitutional No anorexia 11/23/2015 Constitutional No night sweats 11/23/2015 Constitutional No chills 11/23/2015 Constitutional No diaphoresis 11/23/2015 Constitutional No insomnia 11/23/2015 Constitutional No malaise 11/23/2015 Ears/Nose/Throat/Neck No headache 11/23/2015 Ears/Nose/Throat/Neck No nasal allergies 11/23/2015 Ears/Nose/Throat/Neck No nasal discharge 11/23/2015 Ears/Nose/Throat/Neck No sore throat 11/23/2015 Ears/Nose/Throat/Neck No otalgia 11/23/2015 Ears/Nose/Throat/Neck No sinus congestion 11/23/2015 Cardiovascular arrhythmia 11/23/2015 Cardiovascular No chest pain/pressure 11/23/2015 Cardiovascular fatigue 11/23/2015 Respiratory No productive sputum 11/23/2015 Respiratory dyspnea on exertion 11/23/2015 Gastrointestinal No abdominal pain 11/23/2015 Gastrointestinal No constipation 11/23/2015 Gastrointestinal No diarrhea 11/23/2015 Musculoskeletal No stiffness 11/23/2015 Musculoskeletal No swelling 11/23/2015 Musculoskeletal No muscle weakness 11/23/2015 Musculoskeletal No myalgias 11/23/2015 Dermatologic No rash 11/23/2015 Dermatologic sores 11/23/2015 Neurologic No alteration of consciousness 11/23/2015 Psychiatric No anxiety 11/23/2015 Psychiatric No depression 11/23/2015 Constitutional No recent illness 10/14/2015 Constitutional No anorexia 10/14/2015 Constitutional No night sweats 10/14/2015 Constitutional No chills 10/14/2015 Constitutional No diaphoresis 10/14/2015 Constitutional No insomnia 10/14/2015 Constitutional No malaise 10/14/2015 Eyes No eye discharge 10/14/2015 Eyes No eye erythema 10/14/2015 Ears/Nose/Throat/Neck No headache 10/14/2015 Ears/Nose/Throat/Neck No nasal allergies 10/14/2015 Ears/Nose/Throat/Neck No nasal discharge 10/14/2015 Ears/Nose/Throat/Neck No sore throat 10/14/2015 Ears/Nose/Throat/Neck No otalgia 10/14/2015 Ears/Nose/Throat/Neck No sinus congestion 10/14/2015 Cardiovascular No chest pain/pressure 10/14/2015 Cardiovascular fatigue 10/14/2015 Respiratory No productive sputum 10/14/2015 Gastrointestinal No abdominal pain 10/14/2015 Gastrointestinal No constipation 10/14/2015 Gastrointestinal No diarrhea 10/14/2015 Genitourinary/Nephrology No dysuria 10/14/2015 Genitourinary/Nephrology No nocturia 10/14/2015 Genitourinary/Nephrology No urinary incontinence 10/14/2015 Musculoskeletal No stiffness 10/14/2015 Musculoskeletal No swelling 10/14/2015 Musculoskeletal No muscle weakness 10/14/2015 Musculoskeletal No myalgias 10/14/2015 Dermatologic No rash 10/14/2015 Dermatologic sores 10/14/2015 Neurologic No alteration of consciousness 10/14/2015 Psychiatric No anxiety 10/14/2015 Psychiatric No depression 10/14/2015 Constitutional No recent illness 07/20/2015 Constitutional No anorexia 07/20/2015 Constitutional No night sweats 07/20/2015 Constitutional No chills 07/20/2015 Constitutional No diaphoresis 07/20/2015 Constitutional No fatigue 07/20/2015 Constitutional No fever 07/20/2015 Constitutional No insomnia 07/20/2015 Constitutional No malaise 07/20/2015 Constitutional No weight loss 07/20/2015 Constitutional No weight gain 07/20/2015 Constitutional No anorexia 07/06/2015 Constitutional No night sweats 07/06/2015 Constitutional No chills 07/06/2015 Constitutional No diaphoresis 07/06/2015 Constitutional No insomnia 07/06/2015 Constitutional No malaise 07/06/2015 Eyes No eye discharge 07/06/2015 Eyes No eye erythema 07/06/2015 Ears/Nose/Throat/Neck No headache 07/06/2015 Ears/Nose/Throat/Neck No nasal allergies 07/06/2015 Ears/Nose/Throat/Neck No nasal discharge 07/06/2015 Ears/Nose/Throat/Neck No otalgia 07/06/2015 Ears/Nose/Throat/Neck No sinus congestion 07/06/2015 Ears/Nose/Throat/Neck No sore throat 07/06/2015 Cardiovascular arrhythmia 07/06/2015 Cardiovascular No chest pain/pressure 07/06/2015 Cardiovascular fatigue 07/06/2015 Respiratory No productive sputum 07/06/2015 Respiratory dyspnea on exertion 07/06/2015 Gastrointestinal No abdominal pain 07/06/2015 Gastrointestinal No constipation 07/06/2015 Gastrointestinal No diarrhea 07/06/2015 Dermatologic No rash 07/06/2015 Neurologic No alteration of consciousness 07/06/2015 Musculoskeletal No stiffness 07/06/2015 Musculoskeletal No swelling 07/06/2015 Musculoskeletal No muscle weakness 07/06/2015 Musculoskeletal No myalgias 07/06/2015 Genitourinary/Nephrology No dysuria 07/06/2015 Genitourinary/Nephrology No nocturia 07/06/2015 Genitourinary/Nephrology No urinary incontinence 07/06/2015 Psychiatric No anxiety 07/06/2015 Psychiatric No depression 07/06/2015 Dermatologic sores 07/06/2015 Constitutional No anorexia 03/29/2015 Constitutional No night sweats 03/29/2015 Constitutional No chills 03/29/2015 Constitutional No diaphoresis 03/29/2015 Constitutional No insomnia 03/29/2015 Constitutional No malaise 03/29/2015 Eyes No eye discharge 03/29/2015 Eyes No eye erythema 03/29/2015 Ears/Nose/Throat/Neck No headache 03/29/2015 Ears/Nose/Throat/Neck No nasal allergies 03/29/2015 Ears/Nose/Throat/Neck No nasal discharge 03/29/2015 Ears/Nose/Throat/Neck No otalgia 03/29/2015 Ears/Nose/Throat/Neck No sinus congestion 03/29/2015 Ears/Nose/Throat/Neck No sore throat 03/29/2015 Cardiovascular No chest pain/pressure 03/29/2015 Respiratory No productive sputum 03/29/2015 Respiratory cough 03/29/2015 Gastrointestinal No abdominal pain 03/29/2015 Gastrointestinal No constipation 03/29/2015 Gastrointestinal No diarrhea 03/29/2015 Dermatologic No rash 03/29/2015 Neurologic No alteration of consciousness 03/29/2015 Cardiovascular fatigue 03/29/2015 Cardiovascular arrhythmia 03/29/2015 Respiratory dyspnea on exertion 03/29/2015 Constitutional No recent illness 03/08/2015 Constitutional No chills 03/08/2015 Constitutional No fatigue 03/08/2015 Constitutional No fever 03/08/2015 Constitutional No insomnia 03/08/2015 Constitutional No malaise 03/08/2015 Eyes No blindness 03/08/2015 Eyes No vision change 03/08/2015 Ears/Nose/Throat/Neck No dental pain 03/08/2015 Ears/Nose/Throat/Neck No dizziness 03/08/2015 Ears/Nose/Throat/Neck No dysphagia 03/08/2015 Ears/Nose/Throat/Neck No headache 03/08/2015 Ears/Nose/Throat/Neck No hearing loss 03/08/2015 Ears/Nose/Throat/Neck No nasal allergies 03/08/2015 Ears/Nose/Throat/Neck No sore throat 03/08/2015 Ears/Nose/Throat/Neck No postnasal drip 03/08/2015 Ears/Nose/Throat/Neck No sinus congestion 03/08/2015 Cardiovascular No chest pain/pressure 03/08/2015 Cardiovascular No dyspnea 03/08/2015 Cardiovascular No edema 03/08/2015 Cardiovascular No exercise intolerance 03/08/2015 Cardiovascular No fatigue 03/08/2015 Cardiovascular No near-syncope/dizziness 03/08/2015 Respiratory No chest tightness 03/08/2015 Respiratory No cough 03/08/2015 Respiratory No dyspnea 03/08/2015 Respiratory No pedal edema 03/08/2015 Gastrointestinal No abdominal pain 03/08/2015 Gastrointestinal No constipation 03/08/2015 Gastrointestinal No diarrhea 03/08/2015 Gastrointestinal No gastroesophageal reflux 03/08/2015 Gastrointestinal No nausea 03/08/2015 Gastrointestinal No vomiting 03/08/2015 Genitourinary/Nephrology No dysuria 03/08/2015 Genitourinary/Nephrology No nocturia 03/08/2015 Genitourinary/Nephrology No urinary incontinence 03/08/2015 Musculoskeletal No stiffness 03/08/2015 Musculoskeletal No swelling 03/08/2015 Musculoskeletal No muscle weakness 03/08/2015 Musculoskeletal No myalgias 03/08/2015 Dermatologic No rash 03/08/2015 Dermatologic No sores 03/08/2015 Dermatologic No scar 03/08/2015 Neurologic No dizziness 03/08/2015 Neurologic No headache 03/08/2015 Neurologic No neck pain 03/08/2015 Neurologic No syncope 03/08/2015 Psychiatric No anxiety 03/08/2015 Psychiatric No depression 03/08/2015 Constitutional recent illness 02/02/2015 Constitutional No anorexia 02/02/2015 Constitutional No night sweats 02/02/2015 Constitutional No chills 02/02/2015 Constitutional No diaphoresis 02/02/2015 Constitutional No fatigue 02/02/2015 Constitutional No fever 02/02/2015 Constitutional No insomnia 02/02/2015 Constitutional No malaise 02/02/2015 Constitutional No weight loss 02/02/2015 Constitutional No weight gain 02/02/2015 Eyes No eye discharge 02/02/2015 Eyes No eye erythema 02/02/2015 Ears/Nose/Throat/Neck No dizziness 02/02/2015 Ears/Nose/Throat/Neck No headache 02/02/2015 Ears/Nose/Throat/Neck nasal allergies 02/02/2015 Ears/Nose/Throat/Neck nasal discharge 02/02/2015 Ears/Nose/Throat/Neck No otalgia 02/02/2015 Ears/Nose/Throat/Neck sinus congestion 02/02/2015 Ears/Nose/Throat/Neck No sore throat 02/02/2015 Cardiovascular No chest pain/pressure 02/02/2015 Cardiovascular No dyspnea 02/02/2015 Respiratory No productive sputum 02/02/2015 Respiratory No chest congestion 02/02/2015 Respiratory cough 02/02/2015 Gastrointestinal No abdominal pain 02/02/2015 Gastrointestinal No constipation 02/02/2015 Gastrointestinal No diarrhea 02/02/2015 Genitourinary/Nephrology No dysuria 02/02/2015 Musculoskeletal No joint complaint 02/02/2015 Dermatologic No rash 02/02/2015 Neurologic No alteration of consciousness 02/02/2015 Constitutional No recent illness 09/22/2014 Constitutional No chills 09/22/2014 Constitutional No fatigue 09/22/2014 Constitutional No fever 09/22/2014 Constitutional No insomnia 09/22/2014 Constitutional No malaise 09/22/2014 Eyes No blindness 09/22/2014 Eyes No vision change 09/22/2014 Ears/Nose/Throat/Neck No dental pain 09/22/2014 Ears/Nose/Throat/Neck No dizziness 09/22/2014 Ears/Nose/Throat/Neck No dysphagia 09/22/2014 Ears/Nose/Throat/Neck No headache 09/22/2014 Ears/Nose/Throat/Neck No hearing loss 09/22/2014 Ears/Nose/Throat/Neck No nasal allergies 09/22/2014 Ears/Nose/Throat/Neck No sore throat 09/22/2014 Ears/Nose/Throat/Neck No postnasal drip 09/22/2014 Ears/Nose/Throat/Neck No sinus congestion 09/22/2014 Cardiovascular No chest pain/pressure 09/22/2014 Cardiovascular No dyspnea 09/22/2014 Cardiovascular No edema 09/22/2014 Cardiovascular No exercise intolerance 09/22/2014 Cardiovascular No fatigue 09/22/2014 Cardiovascular No near-syncope/dizziness 09/22/2014 Respiratory No chest tightness 09/22/2014 Respiratory No cough 09/22/2014 Respiratory No dyspnea 09/22/2014 Respiratory No pedal edema 09/22/2014 Gastrointestinal No abdominal pain 09/22/2014 Gastrointestinal No constipation 09/22/2014 Gastrointestinal No diarrhea 09/22/2014 Gastrointestinal No gastroesophageal reflux 09/22/2014 Gastrointestinal No nausea 09/22/2014 Gastrointestinal No vomiting 09/22/2014 Genitourinary/Nephrology No dysuria 09/22/2014 Genitourinary/Nephrology No nocturia 09/22/2014 Genitourinary/Nephrology No urinary incontinence 09/22/2014 Musculoskeletal No stiffness 09/22/2014 Musculoskeletal No swelling 09/22/2014 Musculoskeletal No muscle weakness 09/22/2014 Musculoskeletal No myalgias 09/22/2014 Dermatologic No rash 09/22/2014 Dermatologic No sores 09/22/2014 Dermatologic No scar 09/22/2014 Neurologic No dizziness 09/22/2014 Neurologic No headache 09/22/2014 Neurologic No neck pain 09/22/2014 Neurologic No syncope 09/22/2014 Psychiatric No anxiety 09/22/2014 Psychiatric No depression 09/22/2014 Physical Exam Exam Name System Name Item Name Status Result Effective Dates Notes Full Exam - ENT Constitutional general appearance Overall: well nourished 07/08/2018 None Full Exam - ENT Constitutional general appearance Overall: well developed 07/08/2018 None Full Exam - ENT Constitutional general appearance Overall: in no acute distress 07/08/2018 None Full Exam - ENT Ears/Nose/Throat otoscopic exam Overall: external auditory canals normal 07/08/2018 None Full Exam - ENT Ears/Nose/Throat otoscopic exam Left tympanic membrane: air-fluid level 07/08/2018 None Full Exam - ENT Ears/Nose/Throat otoscopic exam Right tympanic membrane: air-fluid level 07/08/2018 None Full Exam - ENT Ears/Nose/Throat nasal mucosa, septum, turbinates Drainage: clear 07/08/2018 None Full Exam - ENT Ears/Nose/Throat nasal mucosa, septum, turbinates Drainage: yellow 07/08/2018 None Full Exam - ENT Ears/Nose/Throat lips/teeth/gingiva Overall: benign lips 07/08/2018 None Full Exam - ENT Ears/Nose/Throat oropharynx Posterior Pharynx: clear post nasal drainage 07/08/2018 None Full Exam - ENT Face and Head palpation Left maxillary sinus: tender 07/08/2018 None Full Exam - ENT Face and Head palpation Right maxillary sinus: tender 07/08/2018 None Full Exam - ENT Respiratory inspection Overall: no retractions 07/08/2018 None Full Exam - ENT Respiratory inspection Overall: normal rate 07/08/2018 None Full Exam - ENT Respiratory auscultation Overall: breath sounds clear bilaterally 07/08/2018 None Full Exam - ENT Lymphatic palpation of lymph nodes Overall: anterior cervical chain benign 07/08/2018 None Full Exam - ENT Lymphatic palpation of lymph nodes Overall: posterior cervical chain benign 07/08/2018 None Full Exam - ENT Neurologic mood and affect Overall: normal mood 07/08/2018 None Full Exam - ENT Neurologic mood and affect Overall: normal affect 07/08/2018 None Full Exam - ENT Neurologic orientation Overall: oriented to person, place and time 07/08/2018 None Full Exam - ENT Cardiovascular auscultation of heart Rate: normal rate 07/08/2018 None Full Exam - ENT Cardiovascular auscultation of heart Rhythm: irregularly irregular rhythm 07/08/2018 None Full Exam - ENT Eyes ocular motility Overall: extraocular movement intact 07/08/2018 eye erythema to right eye Full Exam - Dermatology Constitutional general appearance Overall: well nourished 06/04/2018 None Full Exam - Dermatology Constitutional general appearance Overall: well developed 06/04/2018 None Full Exam - Dermatology Constitutional general appearance Overall: in no acute distress 06/04/2018 None Full Exam - Dermatology Eyes conjunctiva/eyelids Overall: clear conjunctiva bilaterally 06/04/2018 None Full Exam - Dermatology Eyes conjunctiva/eyelids Overall: clear corneas 06/04/2018 None Full Exam - Dermatology Eyes conjunctiva/eyelids Overall: normal eyelids 06/04/2018 None Full Exam - Dermatology Ears/Nose/Throat lips/teeth/gingiva Overall: benign lips 06/04/2018 None Full Exam - Dermatology Ears/Nose/Throat oropharynx Overall: clear oral mucosa 06/04/2018 None Full Exam - Dermatology Respiratory respiratory effort/rhythm Overall: no retractions 06/04/2018 None Full Exam - Dermatology Respiratory respiratory effort/rhythm Overall: normal rate 06/04/2018 None Full Exam - Dermatology Musculoskeletal head and neck Overall: head atraumatic 06/04/2018 None Full Exam - Dermatology Psychiatric orientation Overall: oriented to person, place and time 06/04/2018 None Full Exam - Dermatology Psychiatric mood and affect Overall: normal mood and affect 06/04/2018 None Full Exam - Dermatology Integument insp & palp - right upper extremity Lesion: patch 06/04/2018 None Full Exam - Dermatology Integument insp & palp - right upper extremity Location: on the hand 06/04/2018 between thumb and index finger Full Exam - Dermatology Integument insp & palp - right upper extremity Color: erythematous 06/04/2018 None Full Exam - Dermatology Integument insp & palp - right upper extremity Consistency: tender 06/04/2018 None Full Exam - Dermatology Integument insp & palp - right upper extremity Consistency: soft 06/04/2018 None Full Exam - General 1994 Constitutional general appearance Development: well developed 04/23/2018 None Full Exam - General 1994 Constitutional general appearance Development: appears stated age 0104/23/2018 None Full Exam - General 1994 Constitutional general appearance Hygiene/Attention to Grooming: good hygiene 04/23/2018 None Full Exam - General 1994 Eyes conjunctiva/eyelids Overall: conjunctiva clear 04/23/2018 None Full Exam - General 1994 Eyes conjunctiva/eyelids Overall: cornea clear 04/23/2018 None Full Exam - General 1994 Eyes conjunctiva/eyelids Overall: eyelids normal 04/23/2018 None Full Exam - General 1994 Eyes pupils and irises Overall: pupils equal, round, reactive to light and accomodation 04/23/2018 None Full Exam - General 1994 Ears/Nose/Throat otoscopic exam Overall: external auditory canals clear 04/23/2018 None Full Exam - General 1994 Ears/Nose/Throat otoscopic exam Overall: tympanic membranes clear 04/23/2018 None Full Exam - General 1994 Respiratory auscultation Overall: breath sounds clear bilaterally 04/23/2018 None Full Exam - General 1994 Respiratory respiratory effort/rhythm Overall: no retractions 04/23/2018 None Full Exam - General 1994 Respiratory respiratory effort/rhythm Overall: normal rate 04/23/2018 None Full Exam - General 1994 Cardiovascular extremities Overall: no clubbing 04/23/2018 None Full Exam - General 1994 Cardiovascular auscultation of heart Rate: regular rate 04/23/2018 None Full Exam - General 1994 Cardiovascular auscultation of heart Rhythm: irregularly irregular rhythm 04/23/2018 None Full Exam - General 1994 Abdomen abdominal exam Overall: no tenderness 04/23/2018 None Full Exam - General 1994 Abdomen abdominal exam Overall: normal bowel sounds 04/23/2018 None Full Exam - General 1994 Lymphatic neck nodes Overall: anterior cervical chain benign 04/23/2018 None Full Exam - General 1994 Lymphatic neck nodes Overall: posterior cervical chain benign 04/23/2018 None Full Exam - General 1994 Musculoskeletal spine, ribs and pelvis Overall: good posture 04/23/2018 None Full Exam - General 1994 Musculoskeletal head and neck Overall: head atraumatic 04/23/2018 None Full Exam - General 1994 Musculoskeletal head and neck Overall: cervical spine benign 04/23/2018 None Full Exam - General 1994 Integument inspection of skin Location: ear 04/23/2018 on left ear tragus papular lesion and on right lobe of ear anteriorly irrirated actinic keratosis Full Exam - General 1994 Integument inspection of skin Location: face 04/23/2018 right taoist, forehead, left taoist - irrirated actinic keratosis Full Exam - General 1994 Neurologic cranial nerves Overall: crainial nerves 2 - 12 grossly intact 04/23/2018 None Full Exam - General 1994 Psychiatric orientation/consciousness Overall: oriented to person, place and time 04/23/2018 None Full Exam - General 1994 Psychiatric mood and affect Overall: normal mood and affect 04/23/2018 None Full Exam - ENT Constitutional general appearance Overall: well nourished 02/28/2018 None Full Exam - ENT Constitutional general appearance Overall: well developed 02/28/2018 None Full Exam - ENT Constitutional general appearance Overall: in no acute distress 02/28/2018 None Full Exam - ENT Ears/Nose/Throat otoscopic exam Overall: external auditory canals normal 02/28/2018 None Full Exam - ENT Ears/Nose/Throat otoscopic exam Left tympanic membrane: air-fluid level 02/28/2018 None Full Exam - ENT Ears/Nose/Throat otoscopic exam Right tympanic membrane: air-fluid level 02/28/2018 None Full Exam - ENT Ears/Nose/Throat nasal mucosa, septum, turbinates Drainage: clear 02/28/2018 None Full Exam - ENT Ears/Nose/Throat nasal mucosa, septum, turbinates Drainage: yellow 02/28/2018 None Full Exam - ENT Ears/Nose/Throat lips/teeth/gingiva Overall: benign lips 02/28/2018 None Full Exam - ENT Ears/Nose/Throat oropharynx Posterior Pharynx: clear post nasal drainage 02/28/2018 None Full Exam - ENT Face and Head palpation Left maxillary sinus: tender 02/28/2018 None Full Exam - ENT Face and Head palpation Right maxillary sinus: tender 02/28/2018 None Full Exam - ENT Respiratory inspection Overall: no retractions 02/28/2018 None Full Exam - ENT Respiratory inspection Overall: normal rate 02/28/2018 None Full Exam - ENT Respiratory auscultation Overall: breath sounds clear bilaterally 02/28/2018 None Full Exam - ENT Cardiovascular auscultation of heart Rhythm: irregularly irregular rhythm 02/28/2018 None Full Exam - ENT Lymphatic palpation of lymph nodes Overall: anterior cervical chain benign 02/28/2018 None Full Exam - ENT Lymphatic palpation of lymph nodes Overall: posterior cervical chain benign 02/28/2018 None Full Exam - ENT Neurologic mood and affect Overall: normal mood 02/28/2018 None Full Exam - ENT Neurologic mood and affect Overall: normal affect 02/28/2018 None Full Exam - ENT Neurologic orientation Overall: oriented to person, place and time 02/28/2018 None Full Exam - ENT Constitutional general appearance Overall: well nourished 02/19/2018 None Full Exam - ENT Constitutional general appearance Overall: well developed 02/19/2018 None Full Exam - ENT Constitutional general appearance Overall: in no acute distress 02/19/2018 None Full Exam - ENT Ears/Nose/Throat otoscopic exam Overall: external auditory canals normal 02/19/2018 None Full Exam - ENT Ears/Nose/Throat otoscopic exam Left tympanic membrane: air-fluid level 02/19/2018 None Full Exam - ENT Ears/Nose/Throat otoscopic exam Right tympanic membrane: air-fluid level 02/19/2018 None Full Exam - ENT Ears/Nose/Throat nasal mucosa, septum, turbinates Drainage: clear 02/19/2018 None Full Exam - ENT Ears/Nose/Throat nasal mucosa, septum, turbinates Drainage: yellow 02/19/2018 None Full Exam - ENT Ears/Nose/Throat lips/teeth/gingiva Overall: benign lips 02/19/2018 None Full Exam - ENT Ears/Nose/Throat oropharynx Posterior Pharynx: clear post nasal drainage 02/19/2018 None Full Exam - ENT Face and Head palpation Left maxillary sinus: tender 02/19/2018 None Full Exam - ENT Face and Head palpation Right maxillary sinus: tender 02/19/2018 None Full Exam - ENT Respiratory inspection Overall: no retractions 02/19/2018 None Full Exam - ENT Respiratory inspection Overall: normal rate 02/19/2018 None Full Exam - ENT Respiratory auscultation Overall: breath sounds clear bilaterally 02/19/2018 None Full Exam - ENT Lymphatic palpation of lymph nodes Overall: anterior cervical chain benign 02/19/2018 None Full Exam - ENT Lymphatic palpation of lymph nodes Overall: posterior cervical chain benign 02/19/2018 None Full Exam - ENT Neurologic mood and affect Overall: normal mood 02/19/2018 None Full Exam - ENT Neurologic mood and affect Overall: normal affect 02/19/2018 None Full Exam - ENT Neurologic orientation Overall: oriented to person, place and time 02/19/2018 None Full Exam - ENT Cardiovascular auscultation of heart Rhythm: irregularly irregular rhythm 02/19/2018 None Full Exam - ENT Constitutional general appearance Overall: well nourished 11/09/2017 None Full Exam - ENT Constitutional general appearance Overall: well developed 11/09/2017 None Full Exam - ENT Constitutional general appearance Overall: in no acute distress 11/09/2017 None Full Exam - ENT Ears/Nose/Throat otoscopic exam Overall: external auditory canals normal 11/09/2017 None Full Exam - ENT Ears/Nose/Throat otoscopic exam Left tympanic membrane: air-fluid level 11/09/2017 None Full Exam - ENT Ears/Nose/Throat otoscopic exam Right tympanic membrane: air-fluid level 11/09/2017 None Full Exam - ENT Ears/Nose/Throat lips/teeth/gingiva Overall: benign lips 11/09/2017 None Full Exam - ENT Ears/Nose/Throat oropharynx Overall: oral mucosa clear 11/09/2017 None Full Exam - ENT Ears/Nose/Throat oropharynx Posterior Pharynx: clear post nasal drainage 11/09/2017 None Full Exam - ENT Ears/Nose/Throat oropharynx Posterior Pharynx: erythema 11/09/2017 None Full Exam - ENT Respiratory inspection Overall: no retractions 11/09/2017 None Full Exam - ENT Respiratory inspection Overall: normal rate 11/09/2017 None Full Exam - ENT Respiratory auscultation Overall: breath sounds clear bilaterally 11/09/2017 None Full Exam - ENT Cardiovascular auscultation of heart Rate: normal rate 11/09/2017 None Full Exam - ENT Lymphatic palpation of lymph nodes Overall: anterior cervical chain benign 11/09/2017 None Full Exam - ENT Lymphatic palpation of lymph nodes Overall: posterior cervical chain benign 11/09/2017 None Full Exam - ENT Neurologic mood and affect Overall: normal mood 11/09/2017 None Full Exam - ENT Neurologic mood and affect Overall: normal affect 11/09/2017 None Full Exam - ENT Neurologic orientation Overall: oriented to person, place and time 11/09/2017 None Full Exam - ENT Cardiovascular auscultation of heart Rhythm: irregularly irregular rhythm 11/09/2017 None Full Exam - General 1994 Constitutional general appearance Development: well developed 10/22/2017 None Full Exam - General 1994 Constitutional general appearance Development: appears stated age 0710/22/2017 None Full Exam - General 1994 Constitutional general appearance Hygiene/Attention to Grooming: good hygiene 10/22/2017 None Full Exam - General 1994 Eyes conjunctiva/eyelids Overall: conjunctiva clear 10/22/2017 None Full Exam - General 1994 Eyes conjunctiva/eyelids Overall: cornea clear 10/22/2017 None Full Exam - General 1994 Eyes conjunctiva/eyelids Overall: eyelids normal 10/22/2017 None Full Exam - General 1994 Eyes pupils and irises Overall: pupils equal, round, reactive to light and accomodation 10/22/2017 None Full Exam - General 1994 Ears/Nose/Throat otoscopic exam Overall: external auditory canals clear 10/22/2017 None Full Exam - General 1994 Ears/Nose/Throat otoscopic exam Overall: tympanic membranes clear 10/22/2017 None Full Exam - General 1994 Respiratory auscultation Overall: breath sounds clear bilaterally 10/22/2017 None Full Exam - General 1994 Respiratory respiratory effort/rhythm Overall: no retractions 10/22/2017 None Full Exam - General 1994 Respiratory respiratory effort/rhythm Overall: normal rate 10/22/2017 None Full Exam - General 1994 Cardiovascular extremities Overall: no clubbing 10/22/2017 None Full Exam - General 1994 Cardiovascular auscultation of heart Rate: regular rate 10/22/2017 None Full Exam - General 1994 Cardiovascular auscultation of heart Rhythm: irregularly irregular rhythm 10/22/2017 None Full Exam - General 1994 Abdomen abdominal exam Overall: no tenderness 10/22/2017 None Full Exam - General 1994 Abdomen abdominal exam Overall: normal bowel sounds 10/22/2017 None Full Exam - General 1994 Lymphatic neck nodes Overall: anterior cervical chain benign 10/22/2017 None Full Exam - General 1994 Lymphatic neck nodes Overall: posterior cervical chain benign 10/22/2017 None Full Exam - General 1994 Musculoskeletal spine, ribs and pelvis Overall: good posture 10/22/2017 None Full Exam - General 1994 Musculoskeletal head and neck Overall: head atraumatic 10/22/2017 None Full Exam - General 1994 Musculoskeletal head and neck Overall: cervical spine benign 10/22/2017 None Full Exam - General 1994 Integument inspection of skin Location: ear 10/22/2017 on left ear tragus papular lesion and on right lobe of ear anteriorly irrirated actinic keratosis Full Exam - General 1994 Integument inspection of skin Location: face 10/22/2017 right taoist, forehead, left taoist - irrirated actinic keratosis Full Exam - General 1994 Neurologic cranial nerves Overall: crainial nerves 2 - 12 grossly intact 10/22/2017 None Full Exam - General 1994 Psychiatric orientation/consciousness Overall: oriented to person, place and time 10/22/2017 None Full Exam - General 1994 Psychiatric mood and affect Overall: normal mood and affect 10/22/2017 None Full Exam - General 1994 Constitutional general appearance Overall: well developed 2017 None Full Exam - General 1994 Constitutional general appearance Overall: in no acute distress 2017 None Full Exam - General 1994 Constitutional general appearance Overall: well nourished 2017 None Full Exam - General 1994 Eyes conjunctiva/eyelids Overall: conjunctiva clear 2017 None Full Exam - General 1994 Eyes conjunctiva/eyelids Overall: eyelids normal 2017 None Full Exam - General 1994 Ears/Nose/Throat lips/teeth/gingiva Overall: benign lips 2017 None Full Exam - General 1994 Respiratory respiratory effort/rhythm Overall: no retractions 2017 None Full Exam - General 1994 Respiratory respiratory effort/rhythm Overall: normal rate 2017 None Full Exam - General 1994 Musculoskeletal head and neck Overall: head atraumatic 2017 None Full Exam - General 1994 Neurologic cranial nerves Overall: crainial nerves 2 - 12 grossly intact 2017 None Full Exam - General 1994 Psychiatric orientation/consciousness Overall: oriented to person, place and time 2017 None Full Exam - General 1994 Psychiatric mood and affect Overall: normal mood and affect 2017 None Full Exam - General 1994 Psychiatric appearance Overall: well-groomed, good eye contact 2017 None Full Exam - General 1994 Constitutional general appearance Development: well developed 07/23/2017 None Full Exam - General 1994 Constitutional general appearance Development: appears stated age 0407/23/2017 None Full Exam - General 1994 Constitutional general appearance Hygiene/Attention to Grooming: good hygiene 07/23/2017 None Full Exam - General 1994 Eyes conjunctiva/eyelids Overall: conjunctiva clear 07/23/2017 None Full Exam - General 1994 Eyes conjunctiva/eyelids Overall: cornea clear 07/23/2017 None Full Exam - General 1994 Eyes conjunctiva/eyelids Overall: eyelids normal 07/23/2017 None Full Exam - General 1994 Eyes pupils and irises Overall: pupils equal, round, reactive to light and accomodation 07/23/2017 None Full Exam - General 1994 Ears/Nose/Throat otoscopic exam Overall: external auditory canals clear 07/23/2017 None Full Exam - General 1994 Ears/Nose/Throat otoscopic exam Overall: tympanic membranes clear 07/23/2017 None Full Exam - General 1994 Respiratory auscultation Overall: breath sounds clear bilaterally 07/23/2017 None Full Exam - General 1994 Respiratory respiratory effort/rhythm Overall: no retractions 07/23/2017 None Full Exam - General 1994 Respiratory respiratory effort/rhythm Overall: normal rate 07/23/2017 None Full Exam - General 1994 Cardiovascular extremities Overall: no clubbing 07/23/2017 None Full Exam - General 1994 Cardiovascular auscultation of heart Rate: regular rate 07/23/2017 None Full Exam - General 1994 Cardiovascular auscultation of heart Rhythm: irregularly irregular rhythm 07/23/2017 None Full Exam - General 1994 Abdomen abdominal exam Overall: no tenderness 07/23/2017 None Full Exam - General 1994 Abdomen abdominal exam Overall: normal bowel sounds 07/23/2017 None Full Exam - General 1994 Lymphatic neck nodes Overall: anterior cervical chain benign 07/23/2017 None Full Exam - General 1994 Lymphatic neck nodes Overall: posterior cervical chain benign 07/23/2017 None Full Exam - General 1994 Musculoskeletal spine, ribs and pelvis Overall: good posture 07/23/2017 None Full Exam - General 1994 Musculoskeletal head and neck Overall: head atraumatic 07/23/2017 None Full Exam - General 1994 Musculoskeletal head and neck Overall: cervical spine benign 07/23/2017 None Full Exam - General 1994 Neurologic cranial nerves Overall: crainial nerves 2 - 12 grossly intact 07/23/2017 None Full Exam - General 1994 Psychiatric orientation/consciousness Overall: oriented to person, place and time 07/23/2017 None Full Exam - General 1994 Psychiatric mood and affect Overall: normal mood and affect 07/23/2017 None Full Exam - General 1994 Constitutional general appearance Development: well developed 07/09/2017 None Full Exam - General 1994 Constitutional general appearance Development: appears stated age 0407/09/2017 None Full Exam - General 1994 Constitutional general appearance Hygiene/Attention to Grooming: good hygiene 07/09/2017 None Full Exam - General 1994 Eyes conjunctiva/eyelids Overall: conjunctiva clear 07/09/2017 None Full Exam - General 1994 Eyes conjunctiva/eyelids Overall: cornea clear 07/09/2017 None Full Exam - General 1994 Eyes conjunctiva/eyelids Overall: eyelids normal 07/09/2017 None Full Exam - General 1994 Eyes pupils and irises Overall: pupils equal, round, reactive to light and accomodation 07/09/2017 None Full Exam - General 1994 Ears/Nose/Throat otoscopic exam Overall: external auditory canals clear 07/09/2017 None Full Exam - General 1994 Ears/Nose/Throat otoscopic exam Overall: tympanic membranes clear 07/09/2017 None Full Exam - General 1994 Respiratory auscultation Overall: breath sounds clear bilaterally 07/09/2017 None Full Exam - General 1994 Respiratory respiratory effort/rhythm Overall: no retractions 07/09/2017 None Full Exam - General 1994 Respiratory respiratory effort/rhythm Overall: normal rate 07/09/2017 None Full Exam - General 1994 Cardiovascular extremities Overall: no clubbing 07/09/2017 None Full Exam - General 1994 Cardiovascular auscultation of heart Rate: regular rate 07/09/2017 None Full Exam - General 1994 Abdomen abdominal exam Overall: no tenderness 07/09/2017 None Full Exam - General 1994 Abdomen abdominal exam Overall: normal bowel sounds 07/09/2017 None Full Exam - General 1994 Lymphatic neck nodes Overall: anterior cervical chain benign 07/09/2017 None Full Exam - General 1994 Lymphatic neck nodes Overall: posterior cervical chain benign 07/09/2017 None Full Exam - General 1994 Musculoskeletal spine, ribs and pelvis Overall: good posture 07/09/2017 None Full Exam - General 1994 Musculoskeletal head and neck Overall: head atraumatic 07/09/2017 None Full Exam - General 1994 Musculoskeletal head and neck Overall: cervical spine benign 07/09/2017 None Full Exam - General 1994 Neurologic cranial nerves Overall: crainial nerves 2 - 12 grossly intact 07/09/2017 None Full Exam - General 1994 Psychiatric orientation/consciousness Overall: oriented to person, place and time 07/09/2017 None Full Exam - General 1994 Psychiatric mood and affect Overall: normal mood and affect 07/09/2017 None Full Exam - General 1994 Cardiovascular auscultation of heart Rhythm: regular rhythm 07/09/2017 None Full Exam - General 1994 Constitutional general appearance Development: well developed 06/29/2017 None Full Exam - General 1994 Constitutional general appearance Development: appears stated age 0306/29/2017 None Full Exam - General 1994 Constitutional general appearance Hygiene/Attention to Grooming: good hygiene 06/29/2017 None Full Exam - General 1994 Eyes conjunctiva/eyelids Overall: conjunctiva clear 06/29/2017 None Full Exam - General 1994 Eyes conjunctiva/eyelids Overall: cornea clear 06/29/2017 None Full Exam - General 1994 Eyes conjunctiva/eyelids Overall: eyelids normal 06/29/2017 None Full Exam - General 1994 Eyes pupils and irises Overall: pupils equal, round, reactive to light and accomodation 06/29/2017 None Full Exam - General 1994 Ears/Nose/Throat otoscopic exam Overall: external auditory canals clear 06/29/2017 None Full Exam - General 1994 Ears/Nose/Throat otoscopic exam Overall: tympanic membranes clear 06/29/2017 None Full Exam - General 1994 Respiratory auscultation Overall: breath sounds clear bilaterally 06/29/2017 None Full Exam - General 1994 Respiratory respiratory effort/rhythm Overall: no retractions 06/29/2017 None Full Exam - General 1994 Respiratory respiratory effort/rhythm Overall: normal rate 06/29/2017 None Full Exam - General 1994 Cardiovascular extremities Overall: no clubbing 06/29/2017 None Full Exam - General 1994 Cardiovascular auscultation of heart Rate: regular rate 06/29/2017 None Full Exam - General 1994 Cardiovascular auscultation of heart Rhythm: irregularly irregular rhythm 06/29/2017 None Full Exam - General 1994 Abdomen abdominal exam Overall: no tenderness 06/29/2017 None Full Exam - General 1994 Abdomen abdominal exam Overall: normal bowel sounds 06/29/2017 None Full Exam - General 1994 Lymphatic neck nodes Overall: anterior cervical chain benign 06/29/2017 None Full Exam - General 1994 Lymphatic neck nodes Overall: posterior cervical chain benign 06/29/2017 None Full Exam - General 1994 Musculoskeletal spine, ribs and pelvis Overall: good posture 06/29/2017 None Full Exam - General 1994 Musculoskeletal head and neck Overall: head atraumatic 06/29/2017 None Full Exam - General 1994 Musculoskeletal head and neck Overall: cervical spine benign 06/29/2017 None Full Exam - General 1994 Neurologic cranial nerves Overall: crainial nerves 2 - 12 grossly intact 06/29/2017 None Full Exam - General 1994 Psychiatric orientation/consciousness Overall: oriented to person, place and time 06/29/2017 None Full Exam - General 1994 Psychiatric mood and affect Overall: normal mood and affect 06/29/2017 None Full Exam - General 1994 Constitutional general appearance Development: well developed 04/23/2017 None Full Exam - General 1994 Constitutional general appearance Development: appears stated age 0104/23/2017 None Full Exam - General 1994 Constitutional general appearance Hygiene/Attention to Grooming: good hygiene 04/23/2017 None Full Exam - General 1994 Eyes conjunctiva/eyelids Overall: conjunctiva clear 04/23/2017 None Full Exam - General 1994 Eyes conjunctiva/eyelids Overall: cornea clear 04/23/2017 None Full Exam - General 1994 Eyes conjunctiva/eyelids Overall: eyelids normal 04/23/2017 None Full Exam - General 1994 Eyes pupils and irises Overall: pupils equal, round, reactive to light and accomodation 04/23/2017 None Full Exam - General 1994 Ears/Nose/Throat otoscopic exam Overall: external auditory canals clear 04/23/2017 None Full Exam - General 1994 Ears/Nose/Throat otoscopic exam Overall: tympanic membranes clear 04/23/2017 None Full Exam - General 1994 Respiratory auscultation Overall: breath sounds clear bilaterally 04/23/2017 None Full Exam - General 1994 Respiratory respiratory effort/rhythm Overall: no retractions 04/23/2017 None Full Exam - General 1994 Respiratory respiratory effort/rhythm Overall: normal rate 04/23/2017 None Full Exam - General 1994 Cardiovascular extremities Overall: no clubbing 04/23/2017 None Full Exam - General 1994 Cardiovascular auscultation of heart Rate: regular rate 04/23/2017 None Full Exam - General 1994 Cardiovascular auscultation of heart Rhythm: irregularly irregular rhythm 04/23/2017 None Full Exam - General 1994 Abdomen abdominal exam Overall: no tenderness 04/23/2017 None Full Exam - General 1994 Abdomen abdominal exam Overall: normal bowel sounds 04/23/2017 None Full Exam - General 1994 Lymphatic neck nodes Overall: anterior cervical chain benign 04/23/2017 None Full Exam - General 1994 Lymphatic neck nodes Overall: posterior cervical chain benign 04/23/2017 None Full Exam - General 1994 Musculoskeletal head and neck Overall: cervical spine benign 04/23/2017 None Full Exam - General 1994 Psychiatric orientation/consciousness Overall: oriented to person, place and time 04/23/2017 None Full Exam - General 1994 Psychiatric mood and affect Overall: normal mood and affect 04/23/2017 None Full Exam - General 1994 Constitutional general appearance Development: well developed 04/10/2017 None Full Exam - General 1994 Constitutional general appearance Development: appears stated age 0104/10/2017 None Full Exam - General 1994 Constitutional general appearance Hygiene/Attention to Grooming: good hygiene 04/10/2017 None Full Exam - General 1994 Eyes conjunctiva/eyelids Overall: conjunctiva clear 04/10/2017 None Full Exam - General 1994 Eyes conjunctiva/eyelids Overall: cornea clear 04/10/2017 None Full Exam - General 1994 Eyes conjunctiva/eyelids Overall: eyelids normal 04/10/2017 None Full Exam - General 1994 Eyes pupils and irises Overall: pupils equal, round, reactive to light and accomodation 04/10/2017 None Full Exam - General 1994 Ears/Nose/Throat otoscopic exam Overall: external auditory canals clear 04/10/2017 None Full Exam - General 1994 Ears/Nose/Throat otoscopic exam Overall: tympanic membranes clear 04/10/2017 None Full Exam - General 1994 Ears/Nose/Throat lips/teeth/gingiva Overall: benign lips 04/10/2017 None Full Exam - General 1994 Ears/Nose/Throat lips/teeth/gingiva Overall: normal dentition 04/10/2017 None Full Exam - General 1994 Ears/Nose/Throat oral cavity/pharynx/larynx Overall: oral mucosa clear 04/10/2017 None Full Exam - General 1994 Ears/Nose/Throat oral cavity/pharynx/larynx Overall: oropharyngeal mucosa clear 04/10/2017 None Full Exam - General 1994 Ears/Nose/Throat oral cavity/pharynx/larynx Overall: hypopharynx benign 04/10/2017 None Full Exam - General 1994 Ears/Nose/Throat oral cavity/pharynx/larynx Overall: no masses 04/10/2017 None Full Exam - General 1994 Respiratory auscultation Upper lung field: Breath sounds clear 04/10/2017 None Full Exam - General 1994 Respiratory auscultation Upper lung field: crackles 04/10/2017 None Full Exam - General 1994 Respiratory auscultation Lower lung field: crackles 04/10/2017 None Full Exam - General 1994 Respiratory respiratory effort/rhythm Overall: no retractions 04/10/2017 None Full Exam - General 1994 Respiratory respiratory effort/rhythm Overall: normal rate 04/10/2017 None Full Exam - General 1994 Cardiovascular extremities Overall: no clubbing 04/10/2017 None Full Exam - General 1994 Cardiovascular auscultation of heart Overall: normal heart sounds 04/10/2017 None Full Exam - General 1994 Cardiovascular auscultation of heart Rhythm: irregularly irregular rhythm 04/10/2017 None Full Exam - General 1994 Musculoskeletal spine, ribs and pelvis Overall: good posture 04/10/2017 None Full Exam - General 1994 Musculoskeletal head and neck Overall: head atraumatic 04/10/2017 None Full Exam - General 1994 Musculoskeletal head and neck Overall: cervical spine benign 04/10/2017 None Full Exam - General 1994 Neurologic cranial nerves Overall: crainial nerves 2 - 12 grossly intact 04/10/2017 None Full Exam - General 1994 Psychiatric orientation/consciousness Overall: oriented to person, place and time 04/10/2017 None Full Exam - General 1994 Psychiatric mood and affect Overall: normal mood and affect 04/10/2017 None Full Exam - General 1994 Abdomen abdominal exam Overall: no tenderness 04/10/2017 None Full Exam - General 1994 Abdomen abdominal exam Overall: normal bowel sounds 04/10/2017 None Full Exam - ENT Constitutional general appearance Overall: well nourished 03/29/2017 None Full Exam - ENT Constitutional general appearance Overall: well developed 03/29/2017 None Full Exam - ENT Constitutional general appearance Overall: in no acute distress 03/29/2017 None Full Exam - ENT Ears/Nose/Throat otoscopic exam Overall: external auditory canals normal 03/29/2017 None Full Exam - ENT Ears/Nose/Throat otoscopic exam Left tympanic membrane: air-fluid level 03/29/2017 None Full Exam - ENT Ears/Nose/Throat otoscopic exam Right tympanic membrane: air-fluid level 03/29/2017 None Full Exam - ENT Ears/Nose/Throat lips/teeth/gingiva Overall: benign lips 03/29/2017 None Full Exam - ENT Ears/Nose/Throat oropharynx Overall: oral mucosa clear 03/29/2017 None Full Exam - ENT Ears/Nose/Throat oropharynx Posterior Pharynx: clear post nasal drainage 03/29/2017 None Full Exam - ENT Ears/Nose/Throat oropharynx Posterior Pharynx: erythema 03/29/2017 None Full Exam - ENT Respiratory inspection Overall: no retractions 03/29/2017 None Full Exam - ENT Respiratory inspection Overall: normal rate 03/29/2017 None Full Exam - ENT Respiratory auscultation Overall: breath sounds clear bilaterally 03/29/2017 None Full Exam - ENT Cardiovascular auscultation of heart Rate: normal rate 03/29/2017 None Full Exam - ENT Lymphatic palpation of lymph nodes Overall: anterior cervical chain benign 03/29/2017 None Full Exam - ENT Lymphatic palpation of lymph nodes Overall: posterior cervical chain benign 03/29/2017 None Full Exam - ENT Neurologic mood and affect Overall: normal mood 03/29/2017 None Full Exam - ENT Neurologic mood and affect Overall: normal affect 03/29/2017 None Full Exam - ENT Neurologic orientation Overall: oriented to person, place and time 03/29/2017 None Full Exam - ENT Cardiovascular auscultation of heart Rhythm: irregularly irregular rhythm 03/29/2017 None Full Exam - General 1994 Constitutional general appearance Development: well developed 02/06/2017 None Full Exam - General 1994 Constitutional general appearance Development: appears stated age 1102/06/2017 None Full Exam - General 1994 Constitutional general appearance Hygiene/Attention to Grooming: good hygiene 02/06/2017 None Full Exam - General 1994 Eyes conjunctiva/eyelids Overall: conjunctiva clear 02/06/2017 None Full Exam - General 1994 Eyes conjunctiva/eyelids Overall: cornea clear 02/06/2017 None Full Exam - General 1994 Eyes conjunctiva/eyelids Overall: eyelids normal 02/06/2017 None Full Exam - General 1994 Eyes pupils and irises Overall: pupils equal, round, reactive to light and accomodation 02/06/2017 None Full Exam - General 1994 Ears/Nose/Throat otoscopic exam Overall: external auditory canals clear 02/06/2017 None Full Exam - General 1994 Ears/Nose/Throat otoscopic exam Overall: tympanic membranes clear 02/06/2017 None Full Exam - General 1994 Ears/Nose/Throat lips/teeth/gingiva Overall: benign lips 02/06/2017 None Full Exam - General 1994 Ears/Nose/Throat lips/teeth/gingiva Overall: normal dentition 02/06/2017 None Full Exam - General 1994 Ears/Nose/Throat oral cavity/pharynx/larynx Overall: oral mucosa clear 02/06/2017 None Full Exam - General 1994 Ears/Nose/Throat oral cavity/pharynx/larynx Overall: oropharyngeal mucosa clear 02/06/2017 None Full Exam - General 1994 Ears/Nose/Throat oral cavity/pharynx/larynx Overall: hypopharynx benign 02/06/2017 None Full Exam - General 1994 Ears/Nose/Throat oral cavity/pharynx/larynx Overall: no masses 02/06/2017 None Full Exam - General 1994 Respiratory respiratory effort/rhythm Overall: no retractions 02/06/2017 None Full Exam - General 1994 Respiratory respiratory effort/rhythm Overall: normal rate 02/06/2017 None Full Exam - General 1994 Cardiovascular extremities Overall: no clubbing 02/06/2017 None Full Exam - General 1994 Cardiovascular auscultation of heart Overall: normal heart sounds 02/06/2017 None Full Exam - General 1994 Cardiovascular auscultation of heart Rhythm: irregularly irregular rhythm 02/06/2017 None Full Exam - General 1994 Musculoskeletal spine, ribs and pelvis Overall: good posture 02/06/2017 None Full Exam - General 1994 Musculoskeletal head and neck Overall: head atraumatic 02/06/2017 None Full Exam - General 1994 Musculoskeletal head and neck Overall: cervical spine benign 02/06/2017 None Full Exam - General 1994 Neurologic cranial nerves Overall: crainial nerves 2 - 12 grossly intact 02/06/2017 None Full Exam - General 1994 Psychiatric orientation/consciousness Overall: oriented to person, place and time 02/06/2017 None Full Exam - General 1994 Psychiatric mood and affect Overall: normal mood and affect 02/06/2017 None Full Exam - General 1994 Respiratory auscultation Lower lung field: crackles 02/06/2017 None Full Exam - General 1994 Respiratory auscultation Upper lung field: crackles 02/06/2017 None Full Exam - General 1994 Respiratory auscultation Upper lung field: Breath sounds clear 02/06/2017 None Full Exam - ENT Constitutional general appearance Overall: well nourished 11/06/2016 None Full Exam - ENT Constitutional general appearance Overall: well developed 11/06/2016 None Full Exam - ENT Constitutional general appearance Overall: in no acute distress 11/06/2016 None Full Exam - ENT Ears/Nose/Throat otoscopic exam Overall: tympanic membranes normal 11/06/2016 None Full Exam - ENT Ears/Nose/Throat otoscopic exam Left external auditory canal: partial cerumen occlusion 11/06/2016 None Full Exam - ENT Ears/Nose/Throat otoscopic exam Right external auditory canal: partial cerumen occlusion 11/06/2016 None Full Exam - ENT Ears/Nose/Throat lips/teeth/gingiva Overall: benign lips 11/06/2016 None Full Exam - ENT Ears/Nose/Throat oropharynx Posterior Pharynx: clear post nasal drainage 11/06/2016 None Full Exam - ENT Ears/Nose/Throat oropharynx Posterior Pharynx: erythema 11/06/2016 mild Full Exam - ENT Respiratory inspection Overall: no retractions 11/06/2016 None Full Exam - ENT Respiratory inspection Overall: normal rate 11/06/2016 None Full Exam - ENT Cardiovascular auscultation of heart Rate: normal rate 11/06/2016 None Full Exam - ENT Cardiovascular auscultation of heart Rhythm: irregularly irregular rhythm 11/06/2016 None Full Exam - ENT Lymphatic palpation of lymph nodes Overall: anterior cervical chain benign 11/06/2016 None Full Exam - ENT Lymphatic palpation of lymph nodes Overall: posterior cervical chain benign 11/06/2016 None Full Exam - ENT Musculoskeletal spine, ribs and pelvis Overall: good posture 11/06/2016 None Full Exam - ENT Musculoskeletal gait and station Overall: normal gait 11/06/2016 None Full Exam - ENT Musculoskeletal gait and station Overall: normal station 11/06/2016 None Full Exam - ENT Neurologic mood and affect Overall: normal mood 11/06/2016 None Full Exam - ENT Neurologic mood and affect Overall: normal affect 11/06/2016 None Full Exam - ENT Neurologic orientation Overall: oriented to person, place and time 11/06/2016 None Full Exam - ENT Neurologic cranial nerves/coordination Overall: cranial nerves 2-12 grossly intact 11/06/2016 None Full Exam - ENT Respiratory auscultation Diffuse: diminished 11/06/2016 None Full Exam - ENT Constitutional general appearance Overall: well nourished 09/27/2016 None Full Exam - ENT Constitutional general appearance Overall: well developed 09/27/2016 None Full Exam - ENT Constitutional general appearance Overall: in no acute distress 09/27/2016 None Full Exam - ENT Ears/Nose/Throat otoscopic exam Left external auditory canal: partial cerumen occlusion 09/27/2016 None Full Exam - ENT Ears/Nose/Throat otoscopic exam Right external auditory canal: partial cerumen occlusion 09/27/2016 None Full Exam - ENT Ears/Nose/Throat otoscopic exam Overall: tympanic membranes normal 09/27/2016 None Full Exam - ENT Ears/Nose/Throat lips/teeth/gingiva Overall: benign lips 09/27/2016 None Full Exam - ENT Ears/Nose/Throat oropharynx Posterior Pharynx: clear post nasal drainage 09/27/2016 None Full Exam - ENT Ears/Nose/Throat oropharynx Posterior Pharynx: erythema 09/27/2016 mild Full Exam - ENT Respiratory inspection Overall: normal rate 09/27/2016 None Full Exam - ENT Respiratory inspection Overall: no retractions 09/27/2016 None Full Exam - ENT Respiratory auscultation Left lower lung field: expiratory wheezes 09/27/2016 None Full Exam - ENT Respiratory auscultation Left lower lung field: rhonchi 09/27/2016 None Full Exam - ENT Respiratory auscultation Right lower lung field: diminished 09/27/2016 None Full Exam - ENT Cardiovascular auscultation of heart Rate: normal rate 09/27/2016 None Full Exam - ENT Cardiovascular auscultation of heart Rhythm: irregularly irregular rhythm 09/27/2016 None Full Exam - ENT Lymphatic palpation of lymph nodes Overall: posterior cervical chain benign 09/27/2016 None Full Exam - ENT Lymphatic palpation of lymph nodes Overall: anterior cervical chain benign 09/27/2016 None Full Exam - ENT Musculoskeletal spine, ribs and pelvis Overall: good posture 09/27/2016 None Full Exam - ENT Musculoskeletal gait and station Overall: normal gait 09/27/2016 None Full Exam - ENT Musculoskeletal gait and station Overall: normal station 09/27/2016 None Full Exam - ENT Neurologic mood and affect Overall: normal mood 09/27/2016 None Full Exam - ENT Neurologic mood and affect Overall: normal affect 09/27/2016 None Full Exam - ENT Neurologic orientation Overall: oriented to person, place and time 09/27/2016 None Full Exam - ENT Neurologic cranial nerves/coordination Overall: cranial nerves 2-12 grossly intact 09/27/2016 None Full Exam - General 1994 Constitutional general appearance Development: well developed 03/21/2016 None Full Exam - General 1994 Constitutional general appearance Development: appears stated age 1203/21/2016 None Full Exam - General 1994 Constitutional general appearance Hygiene/Attention to Grooming: good hygiene 03/21/2016 None Full Exam - General 1994 Eyes conjunctiva/eyelids Overall: conjunctiva clear 03/21/2016 None Full Exam - General 1994 Eyes conjunctiva/eyelids Overall: cornea clear 03/21/2016 None Full Exam - General 1994 Eyes conjunctiva/eyelids Overall: eyelids normal 03/21/2016 None Full Exam - General 1994 Eyes pupils and irises Overall: pupils equal, round, reactive to light and accomodation 03/21/2016 None Full Exam - General 1994 Ears/Nose/Throat otoscopic exam Overall: external auditory canals clear 03/21/2016 None Full Exam - General 1994 Ears/Nose/Throat otoscopic exam Overall: tympanic membranes clear 03/21/2016 None Full Exam - General 1994 Respiratory auscultation Overall: breath sounds clear bilaterally 03/21/2016 None Full Exam - General 1994 Respiratory respiratory effort/rhythm Overall: no retractions 03/21/2016 None Full Exam - General 1994 Respiratory respiratory effort/rhythm Overall: normal rate 03/21/2016 None Full Exam - General 1994 Cardiovascular extremities Overall: no clubbing 03/21/2016 None Full Exam - General 1994 Cardiovascular auscultation of heart Rate: regular rate 03/21/2016 None Full Exam - General 1994 Cardiovascular auscultation of heart Rhythm: irregularly irregular rhythm 03/21/2016 None Full Exam - General 1994 Abdomen abdominal exam Overall: no tenderness 03/21/2016 None Full Exam - General 1994 Abdomen abdominal exam Overall: normal bowel sounds 03/21/2016 None Full Exam - General 1994 Lymphatic neck nodes Overall: anterior cervical chain benign 03/21/2016 None Full Exam - General 1994 Lymphatic neck nodes Overall: posterior cervical chain benign 03/21/2016 None Full Exam - General 1994 Musculoskeletal spine, ribs and pelvis Overall: good posture 03/21/2016 None Full Exam - General 1994 Musculoskeletal head and neck Overall: head atraumatic 03/21/2016 None Full Exam - General 1994 Musculoskeletal head and neck Overall: cervical spine benign 03/21/2016 None Full Exam - General 1994 Integument inspection of skin Location: ear 03/21/2016 on left ear tragus papular lesion and on right lobe of ear anteriorly irrirated actinic keratosis Full Exam - General 1994 Integument inspection of skin Location: face 03/21/2016 right taoist, forehead, left taoist - irrirated actinic keratosis Full Exam - General 1994 Neurologic cranial nerves Overall: crainial nerves 2 - 12 grossly intact 03/21/2016 None Full Exam - General 1994 Psychiatric orientation/consciousness Overall: oriented to person, place and time 03/21/2016 None Full Exam - General 1994 Psychiatric mood and affect Overall: normal mood and affect 03/21/2016 None Full Exam - General 1994 Constitutional general appearance Development: well developed 02/01/2016 None Full Exam - General 1994 Constitutional general appearance Development: appears stated age 1102/01/2016 None Full Exam - General 1994 Constitutional general appearance Hygiene/Attention to Grooming: good hygiene 02/01/2016 None Full Exam - General 1994 Eyes conjunctiva/eyelids Overall: conjunctiva clear 02/01/2016 None Full Exam - General 1994 Eyes conjunctiva/eyelids Overall: cornea clear 02/01/2016 None Full Exam - General 1994 Eyes conjunctiva/eyelids Overall: eyelids normal 02/01/2016 None Full Exam - General 1994 Eyes pupils and irises Overall: pupils equal, round, reactive to light and accomodation 02/01/2016 None Full Exam - General 1994 Ears/Nose/Throat otoscopic exam Overall: external auditory canals clear 02/01/2016 None Full Exam - General 1994 Ears/Nose/Throat otoscopic exam Overall: tympanic membranes clear 02/01/2016 None Full Exam - General 1994 Respiratory auscultation Overall: breath sounds clear bilaterally 02/01/2016 None Full Exam - General 1994 Respiratory respiratory effort/rhythm Overall: no retractions 02/01/2016 None Full Exam - General 1994 Respiratory respiratory effort/rhythm Overall: normal rate 02/01/2016 None Full Exam - General 1994 Cardiovascular extremities Overall: no clubbing 02/01/2016 None Full Exam - General 1994 Cardiovascular auscultation of heart Rate: regular rate 02/01/2016 None Full Exam - General 1994 Cardiovascular auscultation of heart Rhythm: irregularly irregular rhythm 02/01/2016 None Full Exam - General 1994 Abdomen abdominal exam Overall: no tenderness 02/01/2016 None Full Exam - General 1994 Abdomen abdominal exam Overall: normal bowel sounds 02/01/2016 None Full Exam - General 1994 Musculoskeletal spine, ribs and pelvis Overall: good posture 02/01/2016 None Full Exam - General 1994 Musculoskeletal head and neck Overall: head atraumatic 02/01/2016 None Full Exam - General 1994 Musculoskeletal head and neck Overall: cervical spine benign 02/01/2016 None Full Exam - General 1994 Neurologic cranial nerves Overall: crainial nerves 2 - 12 grossly intact 02/01/2016 None Full Exam - General 1994 Psychiatric orientation/consciousness Overall: oriented to person, place and time 02/01/2016 None Full Exam - General 1994 Psychiatric mood and affect Overall: normal mood and affect 02/01/2016 None Full Exam - General 1994 Constitutional general appearance Development: well developed 11/23/2015 None Full Exam - General 1994 Constitutional general appearance Development: appears stated age 0811/23/2015 None Full Exam - General 1994 Constitutional general appearance Hygiene/Attention to Grooming: good hygiene 11/23/2015 None Full Exam - General 1994 Eyes conjunctiva/eyelids Overall: conjunctiva clear 11/23/2015 None Full Exam - General 1994 Eyes conjunctiva/eyelids Overall: cornea clear 11/23/2015 None Full Exam - General 1994 Eyes conjunctiva/eyelids Overall: eyelids normal 11/23/2015 None Full Exam - General 1994 Eyes pupils and irises Overall: pupils equal, round, reactive to light and accomodation 11/23/2015 None Full Exam - General 1994 Ears/Nose/Throat otoscopic exam Overall: external auditory canals clear 11/23/2015 None Full Exam - General 1994 Ears/Nose/Throat otoscopic exam Overall: tympanic membranes clear 11/23/2015 None Full Exam - General 1994 Respiratory auscultation Overall: breath sounds clear bilaterally 11/23/2015 None Full Exam - General 1994 Respiratory respiratory effort/rhythm Overall: no retractions 11/23/2015 None Full Exam - General 1994 Respiratory respiratory effort/rhythm Overall: normal rate 11/23/2015 None Full Exam - General 1994 Cardiovascular extremities Overall: no clubbing 11/23/2015 None Full Exam - General 1994 Cardiovascular auscultation of heart Rate: regular rate 11/23/2015 None Full Exam - General 1994 Cardiovascular auscultation of heart Rhythm: irregularly irregular rhythm 11/23/2015 None Full Exam - General 1994 Abdomen abdominal exam Overall: no tenderness 11/23/2015 None Full Exam - General 1994 Abdomen abdominal exam Overall: normal bowel sounds 11/23/2015 None Full Exam - General 1994 Musculoskeletal spine, ribs and pelvis Overall: good posture 11/23/2015 None Full Exam - General 1994 Musculoskeletal head and neck Overall: head atraumatic 11/23/2015 None Full Exam - General 1994 Musculoskeletal head and neck Overall: cervical spine benign 11/23/2015 None Full Exam - General 1994 Integument inspection of skin Location: ear 11/23/2015 left helix, right helix irrirated actinic keratosis Full Exam - General 1994 Integument inspection of skin Location: face 11/23/2015 right taoist, left taoist - irrirated actinic keratosis Full Exam - General 1994 Neurologic cranial nerves Overall: crainial nerves 2 - 12 grossly intact 11/23/2015 None Full Exam - General 1994 Psychiatric orientation/consciousness Overall: oriented to person, place and time 11/23/2015 None Full Exam - General 1994 Psychiatric mood and affect Overall: normal mood and affect 11/23/2015 None Full Exam - General 1994 Constitutional general appearance Development: well developed 10/14/2015 None Full Exam - General 1994 Constitutional general appearance Development: appears stated age 0710/14/2015 None Full Exam - General 1994 Constitutional general appearance Hygiene/Attention to Grooming: good hygiene 10/14/2015 None Full Exam - General 1994 Eyes conjunctiva/eyelids Overall: conjunctiva clear 10/14/2015 None Full Exam - General 1994 Eyes conjunctiva/eyelids Overall: cornea clear 10/14/2015 None Full Exam - General 1994 Eyes conjunctiva/eyelids Overall: eyelids normal 10/14/2015 None Full Exam - General 1994 Eyes pupils and irises Overall: pupils equal, round, reactive to light and accomodation 10/14/2015 None Full Exam - General 1994 Ears/Nose/Throat otoscopic exam Overall: external auditory canals clear 10/14/2015 None Full Exam - General 1994 Ears/Nose/Throat otoscopic exam Overall: tympanic membranes clear 10/14/2015 None Full Exam - General 1994 Respiratory auscultation Overall: breath sounds clear bilaterally 10/14/2015 None Full Exam - General 1994 Respiratory respiratory effort/rhythm Overall: no retractions 10/14/2015 None Full Exam - General 1994 Respiratory respiratory effort/rhythm Overall: normal rate 10/14/2015 None Full Exam - General 1994 Cardiovascular extremities Overall: no clubbing 10/14/2015 None Full Exam - General 1994 Cardiovascular auscultation of heart Rate: regular rate 10/14/2015 None Full Exam - General 1994 Cardiovascular auscultation of heart Rhythm: irregularly irregular rhythm 10/14/2015 None Full Exam - General 1994 Abdomen abdominal exam Overall: no tenderness 10/14/2015 None Full Exam - General 1994 Abdomen abdominal exam Overall: normal bowel sounds 10/14/2015 None Full Exam - General 1994 Lymphatic neck nodes Overall: anterior cervical chain benign 10/14/2015 None Full Exam - General 1994 Lymphatic neck nodes Overall: posterior cervical chain benign 10/14/2015 None Full Exam - General 1994 Musculoskeletal spine, ribs and pelvis Overall: good posture 10/14/2015 None Full Exam - General 1994 Musculoskeletal head and neck Overall: head atraumatic 10/14/2015 None Full Exam - General 1994 Musculoskeletal head and neck Overall: cervical spine benign 10/14/2015 None Full Exam - General 1994 Integument inspection of skin Location: ear 10/14/2015 on left ear tragus papular lesion Full Exam - General 1994 Integument inspection of skin Location: face 10/14/2015 scalp papular lesion-irritated Full Exam - General 1994 Neurologic cranial nerves Overall: crainial nerves 2 - 12 grossly intact 10/14/2015 None Full Exam - General 1994 Psychiatric orientation/consciousness Overall: oriented to person, place and time 10/14/2015 None Full Exam - General 1994 Psychiatric mood and affect Overall: normal mood and affect 10/14/2015 None Full Exam - General 1994 Integument inspection of skin Location: ear 07/20/2015 on left and right helix irrirated actinic keratosis Full Exam - General 1994 Integument inspection of skin Location: face 07/20/2015 left forehead - irrirated actinic keratosis Full Exam - General 1994 Constitutional general appearance Development: well developed 07/06/2015 None Full Exam - General 1994 Constitutional general appearance Development: appears stated age 0407/06/2015 None Full Exam - General 1994 Constitutional general appearance Hygiene/Attention to Grooming: good hygiene 07/06/2015 None Full Exam - General 1994 Eyes conjunctiva/eyelids Overall: conjunctiva clear 07/06/2015 None Full Exam - General 1994 Eyes conjunctiva/eyelids Overall: cornea clear 07/06/2015 None Full Exam - General 1994 Eyes conjunctiva/eyelids Overall: eyelids normal 07/06/2015 None Full Exam - General 1994 Eyes pupils and irises Overall: pupils equal, round, reactive to light and accomodation 07/06/2015 None Full Exam - General 1994 Ears/Nose/Throat otoscopic exam Overall: external auditory canals clear 07/06/2015 None Full Exam - General 1994 Ears/Nose/Throat otoscopic exam Overall: tympanic membranes clear 07/06/2015 None Full Exam - General 1994 Respiratory auscultation Overall: breath sounds clear bilaterally 07/06/2015 None Full Exam - General 1994 Respiratory respiratory effort/rhythm Overall: no retractions 07/06/2015 None Full Exam - General 1994 Respiratory respiratory effort/rhythm Overall: normal rate 07/06/2015 None Full Exam - General 1994 Cardiovascular extremities Overall: no clubbing 07/06/2015 None Full Exam - General 1994 Cardiovascular auscultation of heart Rate: regular rate 07/06/2015 None Full Exam - General 1994 Cardiovascular auscultation of heart Rhythm: irregularly irregular rhythm 07/06/2015 None Full Exam - General 1994 Abdomen abdominal exam Overall: no tenderness 07/06/2015 None Full Exam - General 1994 Abdomen abdominal exam Overall: normal bowel sounds 07/06/2015 None Full Exam - General 1994 Lymphatic neck nodes Overall: anterior cervical chain benign 07/06/2015 None Full Exam - General 1994 Lymphatic neck nodes Overall: posterior cervical chain benign 07/06/2015 None Full Exam - General 1994 Musculoskeletal spine, ribs and pelvis Overall: good posture 07/06/2015 None Full Exam - General 1994 Musculoskeletal head and neck Overall: head atraumatic 07/06/2015 None Full Exam - General 1994 Musculoskeletal head and neck Overall: cervical spine benign 07/06/2015 None Full Exam - General 1994 Neurologic cranial nerves Overall: crainial nerves 2 - 12 grossly intact 07/06/2015 None Full Exam - General 1994 Psychiatric orientation/consciousness Overall: oriented to person, place and time 07/06/2015 None Full Exam - General 1994 Psychiatric mood and affect Overall: normal mood and affect 07/06/2015 None Full Exam - General 1994 Integument inspection of skin Location: ear 07/06/2015 on left ear tragus papular lesion and on right lobe of ear anteriorly irrirated actinic keratosis Full Exam - General 1994 Integument inspection of skin Location: face 07/06/2015 right taoist, forehead, left taoist - irrirated actinic keratosis Full Exam - General 1994 Constitutional general appearance Development: well developed 03/29/2015 None Full Exam - General 1994 Constitutional general appearance Development: appears stated age 1203/29/2015 None Full Exam - General 1994 Constitutional general appearance Hygiene/Attention to Grooming: good hygiene 03/29/2015 None Full Exam - General 1994 Eyes conjunctiva/eyelids Overall: conjunctiva clear 03/29/2015 None Full Exam - General 1994 Eyes conjunctiva/eyelids Overall: cornea clear 03/29/2015 None Full Exam - General 1994 Eyes conjunctiva/eyelids Overall: eyelids normal 03/29/2015 None Full Exam - General 1994 Eyes pupils and irises Overall: pupils equal, round, reactive to light and accomodation 03/29/2015 None Full Exam - General 1994 Ears/Nose/Throat otoscopic exam Overall: external auditory canals clear 03/29/2015 None Full Exam - General 1994 Ears/Nose/Throat otoscopic exam Overall: tympanic membranes clear 03/29/2015 None Full Exam - General 1994 Respiratory auscultation Overall: breath sounds clear bilaterally 03/29/2015 None Full Exam - General 1994 Respiratory respiratory effort/rhythm Overall: no retractions 03/29/2015 None Full Exam - General 1994 Respiratory respiratory effort/rhythm Overall: normal rate 03/29/2015 None Full Exam - General 1994 Cardiovascular extremities Overall: no clubbing 03/29/2015 None Full Exam - General 1994 Abdomen abdominal exam Overall: no tenderness 03/29/2015 None Full Exam - General 1994 Abdomen abdominal exam Overall: normal bowel sounds 03/29/2015 None Full Exam - General 1994 Lymphatic neck nodes Overall: anterior cervical chain benign 03/29/2015 None Full Exam - General 1994 Lymphatic neck nodes Overall: posterior cervical chain benign 03/29/2015 None Full Exam - General 1994 Musculoskeletal spine, ribs and pelvis Overall: good posture 03/29/2015 None Full Exam - General 1994 Musculoskeletal head and neck Overall: head atraumatic 03/29/2015 None Full Exam - General 1994 Musculoskeletal head and neck Overall: cervical spine benign 03/29/2015 None Full Exam - General 1994 Neurologic cranial nerves Overall: crainial nerves 2 - 12 grossly intact 03/29/2015 None Full Exam - General 1994 Psychiatric orientation/consciousness Overall: oriented to person, place and time 03/29/2015 None Full Exam - General 1994 Psychiatric mood and affect Overall: normal mood and affect 03/29/2015 None Full Exam - General 1994 Cardiovascular auscultation of heart Rhythm: irregularly irregular rhythm 03/29/2015 None Full Exam - General 1994 Cardiovascular auscultation of heart Rate: regular rate 03/29/2015 None Full Exam - General 1994 Constitutional general appearance Development: well developed 03/08/2015 None Full Exam - General 1994 Constitutional general appearance Development: appears stated age 1203/08/2015 None Full Exam - General 1994 Constitutional general appearance Hygiene/Attention to Grooming: good hygiene 03/08/2015 None Full Exam - General 1994 Eyes conjunctiva/eyelids Overall: conjunctiva clear 03/08/2015 None Full Exam - General 1994 Eyes conjunctiva/eyelids Overall: cornea clear 03/08/2015 None Full Exam - General 1994 Eyes conjunctiva/eyelids Overall: eyelids normal 03/08/2015 None Full Exam - General 1994 Eyes pupils and irises Overall: pupils equal, round, reactive to light and accomodation 03/08/2015 None Full Exam - General 1994 Ears/Nose/Throat otoscopic exam Overall: external auditory canals clear 03/08/2015 None Full Exam - General 1994 Ears/Nose/Throat otoscopic exam Overall: tympanic membranes clear 03/08/2015 None Full Exam - General 1994 Ears/Nose/Throat lips/teeth/gingiva Overall: benign lips 03/08/2015 None Full Exam - General 1994 Ears/Nose/Throat lips/teeth/gingiva Overall: normal dentition 03/08/2015 None Full Exam - General 1994 Ears/Nose/Throat oral cavity/pharynx/larynx Overall: oral mucosa clear 03/08/2015 None Full Exam - General 1994 Ears/Nose/Throat oral cavity/pharynx/larynx Overall: oropharyngeal mucosa clear 03/08/2015 None Full Exam - General 1994 Ears/Nose/Throat oral cavity/pharynx/larynx Overall: hypopharynx benign 03/08/2015 None Full Exam - General 1994 Ears/Nose/Throat oral cavity/pharynx/larynx Overall: no masses 03/08/2015 None Full Exam - General 1994 Respiratory auscultation Overall: breath sounds clear bilaterally 03/08/2015 None Full Exam - General 1994 Respiratory respiratory effort/rhythm Overall: no retractions 03/08/2015 None Full Exam - General 1994 Respiratory respiratory effort/rhythm Overall: normal rate 03/08/2015 None Full Exam - General 1994 Cardiovascular extremities Overall: no clubbing 03/08/2015 None Full Exam - General 1994 Cardiovascular auscultation of heart Overall: normal heart sounds 03/08/2015 None Full Exam - General 1994 Abdomen abdominal exam Overall: no tenderness 03/08/2015 None Full Exam - General 1994 Abdomen abdominal exam Overall: normal bowel sounds 03/08/2015 None Full Exam - General 1994 Lymphatic neck nodes Overall: anterior cervical chain benign 03/08/2015 None Full Exam - General 1994 Lymphatic neck nodes Overall: posterior cervical chain benign 03/08/2015 None Full Exam - General 1994 Musculoskeletal spine, ribs and pelvis Overall: spine benign 03/08/2015 None Full Exam - General 1994 Musculoskeletal spine, ribs and pelvis Overall: sacroiliac joint benign 03/08/2015 None Full Exam - General 1994 Musculoskeletal spine, ribs and pelvis Overall: good posture 03/08/2015 None Full Exam - General 1994 Musculoskeletal head and neck Overall: head atraumatic 03/08/2015 None Full Exam - General 1994 Musculoskeletal head and neck Overall: cervical spine benign 03/08/2015 None Full Exam - General 1994 Integument inspection of skin Rash/Lesions: nodule 03/08/2015 None Full Exam - General 1994 Integument inspection of skin Consistency: thick 03/08/2015 on face, scalp Full Exam - General 1994 Neurologic deep tendon reflexes Overall: deep tendon reflexes intact 03/08/2015 None Full Exam - General 1994 Neurologic cranial nerves Overall: crainial nerves 2 - 12 grossly intact 03/08/2015 None Full Exam - General 1994 Psychiatric orientation/consciousness Overall: oriented to person, place and time 03/08/2015 None Full Exam - General 1994 Psychiatric mood and affect Overall: normal mood and affect 03/08/2015 None Full Exam - General 1994 Cardiovascular auscultation of heart Rhythm: irregularly irregular rhythm 03/08/2015 None Full Exam - General 1994 Constitutional general appearance Development: well developed 02/02/2015 None Full Exam - General 1994 Constitutional general appearance Development: appears stated age 1102/02/2015 None Full Exam - General 1994 Constitutional general appearance Hygiene/Attention to Grooming: good hygiene 02/02/2015 None Full Exam - General 1994 Eyes conjunctiva/eyelids Overall: conjunctiva clear 02/02/2015 None Full Exam - General 1994 Eyes conjunctiva/eyelids Overall: cornea clear 02/02/2015 None Full Exam - General 1994 Eyes conjunctiva/eyelids Overall: eyelids normal 02/02/2015 None Full Exam - General 1994 Eyes pupils and irises Overall: pupils equal, round, reactive to light and accomodation 02/02/2015 None Full Exam - General 1994 Ears/Nose/Throat otoscopic exam Overall: external auditory canals clear 02/02/2015 None Full Exam - General 1994 Ears/Nose/Throat otoscopic exam Overall: tympanic membranes clear 02/02/2015 None Full Exam - General 1994 Ears/Nose/Throat lips/teeth/gingiva Overall: benign lips 02/02/2015 None Full Exam - General 1994 Ears/Nose/Throat lips/teeth/gingiva Overall: normal dentition 02/02/2015 None Full Exam - General 1994 Respiratory auscultation Overall: breath sounds clear bilaterally 02/02/2015 None Full Exam - General 1994 Respiratory respiratory effort/rhythm Overall: no retractions 02/02/2015 None Full Exam - General 1994 Respiratory respiratory effort/rhythm Overall: normal rate 02/02/2015 None Full Exam - General 1994 Cardiovascular extremities Overall: no clubbing 02/02/2015 None Full Exam - General 1994 Cardiovascular auscultation of heart Overall: regular rate 02/02/2015 None Full Exam - General 1994 Cardiovascular auscultation of heart Overall: normal heart sounds 02/02/2015 None Full Exam - General 1994 Abdomen abdominal exam Overall: no tenderness 02/02/2015 None Full Exam - General 1994 Abdomen abdominal exam Overall: normal bowel sounds 02/02/2015 None Full Exam - General 1994 Lymphatic neck nodes Overall: anterior cervical chain benign 02/02/2015 None Full Exam - General 1994 Lymphatic neck nodes Overall: posterior cervical chain benign 02/02/2015 None Full Exam - General 1994 Musculoskeletal spine, ribs and pelvis Overall: spine benign 02/02/2015 None Full Exam - General 1994 Musculoskeletal spine, ribs and pelvis Overall: sacroiliac joint benign 02/02/2015 None Full Exam - General 1994 Musculoskeletal spine, ribs and pelvis Overall: good posture 02/02/2015 None Full Exam - General 1994 Musculoskeletal head and neck Overall: head atraumatic 02/02/2015 None Full Exam - General 1994 Musculoskeletal head and neck Overall: cervical spine benign 02/02/2015 None Full Exam - General 1994 Neurologic deep tendon reflexes Overall: deep tendon reflexes intact 02/02/2015 None Full Exam - General 1994 Neurologic cranial nerves Overall: crainial nerves 2 - 12 grossly intact 02/02/2015 None Full Exam - General 1994 Psychiatric orientation/consciousness Overall: oriented to person, place and time 02/02/2015 None Full Exam - General 1994 Psychiatric mood and affect Overall: normal mood and affect 02/02/2015 None Full Exam - General 1994 Ears/Nose/Throat oral cavity/pharynx/larynx Hard palate: mass 02/02/2015 None Full Exam - General 1994 Constitutional general appearance Development: well developed 09/22/2014 None Full Exam - General 1994 Constitutional general appearance Development: appears stated age 0609/22/2014 None Full Exam - General 1994 Constitutional general appearance Hygiene/Attention to Grooming: good hygiene 09/22/2014 None Full Exam - General 1994 Eyes conjunctiva/eyelids Overall: conjunctiva clear 09/22/2014 None Full Exam - General 1994 Eyes conjunctiva/eyelids Overall: cornea clear 09/22/2014 None Full Exam - General 1994 Eyes conjunctiva/eyelids Overall: eyelids normal 09/22/2014 None Full Exam - General 1994 Eyes pupils and irises Overall: pupils equal, round, reactive to light and accomodation 09/22/2014 None Full Exam - General 1994 Ears/Nose/Throat otoscopic exam Overall: external auditory canals clear 09/22/2014 None Full Exam - General 1994 Ears/Nose/Throat otoscopic exam Overall: tympanic membranes clear 09/22/2014 None Full Exam - General 1994 Ears/Nose/Throat lips/teeth/gingiva Overall: benign lips 09/22/2014 None Full Exam - General 1994 Ears/Nose/Throat lips/teeth/gingiva Overall: normal dentition 09/22/2014 None Full Exam - General 1994 Ears/Nose/Throat oral cavity/pharynx/larynx Overall: oral mucosa clear 09/22/2014 None Full Exam - General 1994 Ears/Nose/Throat oral cavity/pharynx/larynx Overall: oropharyngeal mucosa clear 09/22/2014 None Full Exam - General 1994 Ears/Nose/Throat oral cavity/pharynx/larynx Overall: hypopharynx benign 09/22/2014 None Full Exam - General 1994 Ears/Nose/Throat oral cavity/pharynx/larynx Overall: no masses 09/22/2014 None Full Exam - General 1994 Respiratory auscultation Overall: breath sounds clear bilaterally 09/22/2014 None Full Exam - General 1994 Respiratory respiratory effort/rhythm Overall: no retractions 09/22/2014 None Full Exam - General 1994 Respiratory respiratory effort/rhythm Overall: normal rate 09/22/2014 None Full Exam - General 1994 Cardiovascular extremities Overall: no clubbing 09/22/2014 None Full Exam - General 1994 Cardiovascular auscultation of heart Overall: regular rate 09/22/2014 None Full Exam - General 1994 Cardiovascular auscultation of heart Overall: normal heart sounds 09/22/2014 None Full Exam - General 1994 Abdomen abdominal exam Overall: no tenderness 09/22/2014 None Full Exam - General 1994 Abdomen abdominal exam Overall: normal bowel sounds 09/22/2014 None Full Exam - General 1994 Lymphatic neck nodes Overall: anterior cervical chain benign 09/22/2014 None Full Exam - General 1994 Lymphatic neck nodes Overall: posterior cervical chain benign 09/22/2014 None Full Exam - General 1994 Musculoskeletal spine, ribs and pelvis Overall: spine benign 09/22/2014 None Full Exam - General 1994 Musculoskeletal spine, ribs and pelvis Overall: sacroiliac joint benign 09/22/2014 None Full Exam - General 1994 Musculoskeletal spine, ribs and pelvis Overall: good posture 09/22/2014 None Full Exam - General 1994 Musculoskeletal head and neck Overall: head atraumatic 09/22/2014 None Full Exam - General 1994 Musculoskeletal head and neck Overall: cervical spine benign 09/22/2014 None Full Exam - General 1994 Neurologic deep tendon reflexes Overall: deep tendon reflexes intact 09/22/2014 None Full Exam - General 1994 Neurologic cranial nerves Overall: crainial nerves 2 - 12 grossly intact 09/22/2014 None Full Exam - General 1994 Psychiatric orientation/consciousness Overall: oriented to person, place and time 09/22/2014 None Full Exam - General 1994 Psychiatric mood and affect Overall: normal mood and affect 09/22/2014 None Full Exam - General 1994 Integument inspection of skin Rash/Lesions: nodule 09/22/2014 None Full Exam - General 1994 Integument inspection of skin Consistency: thick 09/22/2014 on face, scalp Procedures Procedure Codes Date TRIAMCINOLONE ACET INJ NOS CPT-4: J3301 07/08/2018 THER/PROPH/DIAG INJ SC/IM CPT-4: 62716 07/08/2018 THER/PROPH/DIAG INJ SC/IM CPT-4: 59443 02/28/2018 ROCEPHIN, PER 250 MG CPT- 4: J0696 02/28/2018 THER/PROPH/DIAG INJ SC/IM CPT-4: 64575 02/26/2018 TRIAMCINOLONE ACET INJ NOS CPT-4: J3301 02/26/2018 PPPS, SUBSEQ VISIT CPT- 4: G0439 2017 TRIAMCINOLONE ACET INJ NOS CPT-4: J3301 06/29/2017 THER/PROPH/DIAG INJ SC/IM CPT-4: 90188 02/06/2017 ROCEPHIN, PER 250 MG CPT- 4: J0696 02/06/2017 ROCEPHIN, PER 250 MG CPT- 4: J0696 09/27/2016 TRIAMCINOLONE ACET INJ NOS CPT-4: J3301 09/27/2016 THER/PROPH/DIAG INJ SC/IM CPT-4: 55798 09/27/2016 DESTRUCT PREMALG LESION CPT-4: 16719 10/14/2015 DESTRUCT PREMALG LESION CPT-4: 00062 07/20/2015 DESTRUCT PREMALG LESION CPT-4: 19521 07/06/2015 DESTRUCT PREMALG LES 2-14 CPT-4: 18156 07/06/2015 TRIAMCINOLONE ACET INJ NOS CPT-4: J3301 02/02/2015 Vital Signs Date Vital 07/08/2018 Blood Pressure 1: 134/64 Code: 8480-6 BMI: 30.6 Code: 13495-0 Heart Rate 1: 79 bpm Height: 5'8" SpO2: 98% Weight: 201 lbs 06/04/2018 Blood Pressure 1: 130/62 Code: 8480-6 BMI: 30.6 Code: 75007-6 Heart Rate 1: 88 bpm Height: 5'8" SpO2: 97% Weight: 201 lbs 04/23/2018 Blood Pressure 1: 130/72 Code: 8480-6 BMI: 30.1 Code: 16003-3 Heart Rate 1: 74 bpm Height: 5'8" SpO2: 97% Weight: 198 lbs 02/28/2018 Blood Pressure 1: 124/72 Code: 8480-6 BMI: 30.0 Code: 95536-6 Heart Rate 1: 69 bpm Height: 5'8" SpO2: 97% Temperature: 36.6 (C) / 97.8 (F) Weight: 197 lbs 02/19/2018 Blood Pressure 1: 128/76 Code: 8480-6 BMI: 30.0 Code: 11867-3 Heart Rate 1: 66 bpm Height: 5'8" SpO2: 97% Weight: 197 lbs 11/09/2017 Blood Pressure 1: 130/74 Code: 8480-6 BMI: 29.3 Code: 43464-6 Heart Rate 1: 81 bpm Height: 5'8" SpO2: 98% Temperature: 36.6 (C) / 97.9 (F) Weight: 193 lbs 10/22/2017 Blood Pressure 1: 132/82 Code: 8480-6 BMI: 29.0 Code: 67288-9 Heart Rate 1: 80 bpm Height: 5'8" SpO2: 98% Weight: 191 lbs 2017 Blood Pressure 1: 142/68 Code: 8480-6 BMI: 28.7 Code: 92754-9 Heart Rate 1: 62 bpm Height: 5'8" SpO2: 98% Waist Measure (cm): 102 cm Weight: 189 lbs 07/23/2017 Blood Pressure 1: 138/84 Code: 8480-6 BMI: 29.0 Code: 32551-4 Heart Rate 1: 69 bpm Height: 5'8" SpO2: 98% Weight: 191 lbs 07/09/2017 Blood Pressure 1: 120/82 Code: 8480-6 BMI: 29.2 Code: 53464-5 Heart Rate 1: 80 bpm Height: 5'8" SpO2: 98% Weight: 192 lbs 06/29/2017 Blood Pressure 1: 140/82 Code: 8480-6 BMI: 29.5 Code: 77519-3 Heart Rate 1: 83 bpm Height: 5'8" SpO2: 98% Weight: 194 lbs 04/23/2017 Blood Pressure 1: 132/74 Code: 8480-6 BMI: 28.4 Code: 71319-9 Heart Rate 1: 78 bpm Height: 5'8" SpO2: 97% Weight: 187 lbs 04/10/2017 Blood Pressure 1: 126/68 Code: 8480-6 BMI: 29.5 Code: 12342-7 Heart Rate 1: 68 bpm Height: 5'8" SpO2: 92% Temperature: 37.5 (C) / 99.5 (F) Weight: 194 lbs 03/29/2017 Blood Pressure 1: 116/76 Code: 8480-6 BMI: 29.6 Code: 77638-1 Heart Rate 1: 61 bpm Height: 5'8" SpO2: 98% Weight: 195 lbs 02/06/2017 Blood Pressure 1: 130/74 Code: 8480-6 BMI: 30.4 Code: 38687-5 Heart Rate 1: 71 bpm Height: 5'8" SpO2: 98% Weight: 200 lbs 11/06/2016 Blood Pressure 1: 140/74 Code: 8480-6 BMI: 29.5 Code: 32371-5 Heart Rate 1: 76 bpm Height: 5'8" SpO2: 96% Weight: 194 lbs 09/27/2016 Blood Pressure 1: 138/78 Code: 8480-6 BMI: 29.6 Code: 73736-8 Heart Rate 1: 68 bpm Height: 5'8" SpO2: 97% Weight: 195 lbs 03/21/2016 Blood Pressure 1: 148/82 Code: 8480-6 BMI: 30.6 Code: 09041-6 Heart Rate 1: 67 bpm Height: 5'8" SpO2: 98% Weight: 201 lbs 02/01/2016 Blood Pressure 1: 128/86 Code: 8480-6 BMI: 30.3 Code: 86974-6 Heart Rate 1: 84 bpm Height: 5'8" SpO2: 96% Weight: 199 lbs 11/23/2015 Blood Pressure 1: 132/76 Code: 8480-6 BMI: 30.4 Code: 39688-2 Heart Rate 1: 81 bpm Height: 5'8" SpO2: 98% Weight: 200 lbs 10/14/2015 Blood Pressure 1: 120/80 Code: 8480-6 BMI: 30.4 Code: 40731-9 Heart Rate 1: 87 bpm Height: 5'8" SpO2: 97% Weight: 200 lbs 07/20/2015 Blood Pressure 1: 132/84 Code: 8480-6 BMI: 31.0 Code: 95809-6 Heart Rate 1: 78 bpm Height: 5'8" SpO2: 96% Weight: 204 lbs 07/06/2015 Blood Pressure 1: 130/78 Code: 8480-6 BMI: 31.0 Code: 19465-4 Heart Rate 1: 80 bpm Height: 5'8" SpO2: 98% Weight: 204 lbs 03/29/2015 Blood Pressure 1: 132/82 Code: 8480-6 BMI: 29.6 Code: 31515-1 Heart Rate 1: 76 bpm Height: 5'8" SpO2: 96% Weight: 195 lbs 03/08/2015 Blood Pressure 1: 126/84 Code: 8480-6 BMI: 30.2 Code: 37010-4 Heart Rate 1: 101 bpm Height: 5'8" SpO2: 98% Weight: 198 lbs 8 oz 02/02/2015 Blood Pressure 1: 132/86 Code: 8480-6 Heart Rate 1: 86 bpm SpO2: 98% Temperature: 36.6 (C) / 97.8 (F) Weight: 198 lbs 09/22/2014 Blood Pressure 1: 128/80 Code: 8480-6 BMI: 29.3 Code: 44619-8 Heart Rate 1: 85 bpm Height: 5'8" SpO2: 98% Weight: 193 lbs Functional Status No Functional Status data History of Present Illness Symptom Name Status Result Effective Date Notes Location in the right eye 07/08/2018 None Quality constant 07/08/2018 None Onset and Resolution sudden in onset 07/08/2018 None Onset of Symptom 1 days ago 07/08/2018 None Location frontal sinuses 07/08/2018 None Quality constant 07/08/2018 None Quality fullness 07/08/2018 None Quality pressure 07/08/2018 None Onset and Resolution sudden in onset 07/08/2018 None Onset of Symptom _ weeks ago 07/08/2018 None Frequency of Episodes daily 07/08/2018 None Location on the right 06/04/2018 None Quality animal bite 06/04/2018 None Quality constant 06/04/2018 None Onset of Symptom 3 weeks ago 06/04/2018 None Quality intermittent 04/23/2018 None Onset and Resolution gradual in onset 04/23/2018 None Frequency of Episodes daily 04/23/2018 None Pertinent Findings hoarseness 04/23/2018 None Quality chronic 04/23/2018 None Quality primary hypertension 04/23/2018 None Onset and Resolution ongoing 04/23/2018 None Onset of Symptom during adulthood 04/23/2018 None Alleviating Factors medication 04/23/2018 None Pertinent Findings Denies dizziness 04/23/2018 None Pertinent Findings dyspnea 04/23/2018 "normal amount" sinus congestion Location frontal sinuses 02/28/2018 None sinus congestion Quality constant 02/28/2018 None sinus congestion Quality fullness 02/28/2018 None sinus congestion Quality pressure 02/28/2018 None sore throat Location diffusely 02/28/2018 None sore throat Quality aching 02/28/2018 None sore throat Quality constant 02/28/2018 None sore throat Quality scratchy 02/28/2018 None sore throat Onset of Symptom 5 days ago 02/28/2018 None sore throat Frequency of Episodes daily 02/28/2018 None sinus congestion Onset and Resolution ongoing 02/28/2018 None sore throat Onset and Resolution ongoing 02/28/2018 None sinus congestion Location frontal sinuses 02/19/2018 None sinus congestion Quality constant 02/19/2018 None sinus congestion Quality fullness 02/19/2018 None sinus congestion Quality pressure 02/19/2018 None sinus congestion Onset and Resolution sudden in onset 02/19/2018 None sore throat Location diffusely 02/19/2018 None sore throat Quality aching 02/19/2018 None sore throat Quality constant 02/19/2018 None sore throat Quality scratchy 02/19/2018 None sore throat Onset and Resolution sudden in onset 02/19/2018 None sore throat Onset of Symptom 5 days ago 02/19/2018 None sore throat Frequency of Episodes daily 02/19/2018 None sore throat Location diffusely 11/09/2017 None sore throat Quality aching 11/09/2017 None sore throat Quality burning 11/09/2017 None sore throat Quality constant 11/09/2017 None sore throat Onset and Resolution sudden in onset 11/09/2017 None sore throat Onset of Symptom 3 days ago 11/09/2017 None sore throat Frequency of Episodes daily 11/09/2017 None hypertension Quality chronic 10/22/2017 None hypertension Quality primary hypertension 10/22/2017 None hypertension Onset and Resolution ongoing 10/22/2017 None hypertension Onset of Symptom during adulthood 10/22/2017 None hypertension Blood Pressure Values patient checking blood pressure at home - did not bring in readings 10/22/2017 -Checks occasionally hypertension Alleviating Factors medication 10/22/2017 None hypertension Pertinent Findings Denies dizziness 10/22/2017 None hypertension Pertinent Findings dyspnea 10/22/2017 "normal amount" hypertension Pertinent Findings Denies edema 10/22/2017 None arrhythmia Quality chronic 10/22/2017 None arrhythmia Quality irregular beats 10/22/2017 (afib) arrhythmia Onset and Resolution ongoing 10/22/2017 None arrhythmia Alleviating Factors medication 10/22/2017 None Annual Medicare Wellness Exam Alcohol Use does not drink any alcohol 2017 None Annual Medicare Wellness Exam Aspirin Use yes 2017 None Annual Medicare Wellness Exam Blood Glucose (self reported) don't know 2017 None Annual Medicare Wellness Exam Blood Pressure (self reported) borderline (120/80 - 139/89) 2017 None Annual Medicare Wellness Exam Cholesterol (self reported) desireable (below 200) 2017 None Annual Medicare Wellness Exam Depression (last 6 months) almost never 2017 None Annual Medicare Wellness Exam Depression or Hopelessness almost never 2017 None Annual Medicare Wellness Exam Describe Your Health good 2017 None Annual Medicare Wellness Exam Exercise Habits does not exercise 2017 None Annual Medicare Wellness Exam Handling Stress usually shyanne effectively 2017 None Annual Medicare Wellness Exam Hemaglobin A-1C (self reported) don't know 2017 None Annual Medicare Wellness Exam Hours of Sleep 6 2017 None Annual Medicare Wellness Exam Interaction with Friends yes 2017 None Annual Medicare Wellness Exam Interests & Pleasure most of the time 2017 None Annual Medicare Wellness Exam Life Satisfaction very satisfied 2017 None Annual Medicare Wellness Exam Motor Vehicle Safety always fastens seat belt: y 2017 None Annual Medicare Wellness Exam Motor Vehicle Safety drives after drinking: n 2017 None Annual Medicare Wellness Exam Motor Vehicle Safety rides with someone who has been drinking: n 2017 None Annual Medicare Wellness Exam Nutrition servings of fried food / high fat foods per day: 2 2017 2 Annual Medicare Wellness Exam Nutrition servings of high fiber / whole grain per day: 2 2017 None Annual Medicare Wellness Exam Nutrition servings of vegetables / fruit per day: 3 2017 None Annual Medicare Wellness Exam Smoking and Tobacco Use non smoker 2017 None Annual Medicare Wellness Exam Social & Emotional Support always 2017 None Annual Medicare Wellness Exam Stress almost never 2017 None Annual Medicare Wellness Exam Sun Exposure protects skin when outdoors: y 2017 None hypertension Quality primary hypertension 07/23/2017 None hypertension Onset and Resolution ongoing 07/23/2017 None hypertension Onset of Symptom during adulthood 07/23/2017 None hypertension Quality chronic 07/23/2017 None hypertension Blood Pressure Values patient checking blood pressure at home - did not bring in readings 07/23/2017 -Checks occasionally hypertension Alleviating Factors medication 07/23/2017 None hypertension Pertinent Findings Denies dizziness 07/23/2017 None hypertension Pertinent Findings dyspnea 07/23/2017 "normal amount" hypertension Pertinent Findings Denies edema 07/23/2017 None cough Quality constant 07/09/2017 None cough Quality productive 07/09/2017 None cough Onset and Resolution ongoing 07/09/2017 None cough Location in the throat 06/29/2017 None cough Quality constant 06/29/2017 None cough Quality hacking 06/29/2017 None cough Onset and Resolution sudden in onset 06/29/2017 None cough Onset of Symptom 2 weeks ago 06/29/2017 None sinus congestion Onset and Resolution sudden in onset 06/29/2017 None sinus congestion Onset of Symptom 2 weeks ago 06/29/2017 None cough Limitation on Activities does not limit activities 06/29/2017 None cough Frequency of Episodes unchanged 06/29/2017 None cough Triggers known allergens 06/29/2017 None Hospital Follow Up _ infection 04/23/2017 None Hospital Follow Up Quality acute illness 04/23/2017 None Hospital Follow Up Location lungs, systemic 04/23/2017 None Hospital Follow Up Onset of Symptom 2 weeks ago 04/23/2017 None Hospital Follow Up Pertinent Findings fever 04/23/2017 None Hospital Follow Up Pertinent Findings Other: productive cough, dyspnea, sore throat, hoarse voice 04/23/2017 None sore throat Location on both sides 04/10/2017 None sore throat Quality acute 04/10/2017 None sore throat Quality scratchy 04/10/2017 None sore throat Pertinent Findings fever 04/10/2017 None cough Location in the lung 04/10/2017 None cough Quality acute 04/10/2017 None cough Onset and Resolution sudden in onset 04/10/2017 None cough Onset of Symptom 2 days ago 04/10/2017 None cough Limitation on Activities moderately limits activities 04/10/2017 None cough Exacerbating Factors stress 04/10/2017 None cough Exacerbating Factors exercise 04/10/2017 None cough Pertinent Findings chest discomfort 04/10/2017 None cough Pertinent Findings dyspnea 04/10/2017 None cough Pertinent Findings fever 04/10/2017 None cough Pertinent Findings hoarseness 04/10/2017 None cough Pertinent Findings lethargy 04/10/2017 None cough Pertinent Findings sputum production 04/10/2017 None cough Pertinent Findings weakness 04/10/2017 None cough Pertinent Findings muscle aches 04/10/2017 None cough Pertinent Findings Denies nasal congestion 04/10/2017 None sore throat Onset and Resolution sudden in onset 04/10/2017 None sore throat Onset and Resolution ongoing 04/10/2017 None sore throat Onset of Symptom _ weeks ago 04/10/2017 None sore throat Limitation on Activities does not limit oral intake 04/10/2017 None sore throat Pertinent Findings cough 04/10/2017 None sore throat Pertinent Findings decreased energy level 04/10/2017 None sore throat Pertinent Findings hoarseness 04/10/2017 None sore throat Pertinent Findings Denies nasal congestion 04/10/2017 None sore throat Location on both sides 03/29/2017 None sore throat Quality acute 03/29/2017 None sore throat Quality scratchy 03/29/2017 None sore throat Pertinent Findings Denies fever 03/29/2017 None sinus congestion Location maxillary sinuses 03/29/2017 None sinus congestion Quality acute 03/29/2017 None sinus congestion Onset and Resolution ongoing 03/29/2017 None sinus congestion Pertinent Findings Denies fever 03/29/2017 None chest pain/pressure Pertinent Findings cough 02/06/2017 None chest pain/pressure Pertinent Findings Denies fever 02/06/2017 None chest pain/pressure Pertinent Findings dyspnea 02/06/2017 None chest pain/pressure Pertinent Findings tachycardia 02/06/2017 None chest pain/pressure Pertinent Findings Denies nausea 02/06/2017 None chest pain/pressure Pertinent Findings lightheadedness 02/06/2017 None chest pain/pressure Pertinent Findings Denies tingling of extremities 02/06/2017 None chest pain/pressure Quality acute 02/06/2017 None chest pain/pressure Onset and Resolution sudden in onset 02/06/2017 None chest pain/pressure Onset of Symptom 8 hours ago 02/06/2017 None chest pain/pressure Onset and Resolution resolved 02/06/2017 None chest pain/pressure Length of Episodes ~2 hours 02/06/2017 None chest pain/pressure Significant Medical Conditions coronary artery disease 02/06/2017 None chest pain/pressure Significant Medical Conditions hypertension 02/06/2017 None chest pain/pressure Triggers no known associated factors 02/06/2017 None cough Location in the lung 11/06/2016 None cough Quality constant 11/06/2016 None cough Quality dry 11/06/2016 None cough Quality worsening 11/06/2016 None cough Onset and Resolution ongoing 11/06/2016 None cough Onset of Symptom _ months ago 11/06/2016 None cough Frequency of Episodes daily 11/06/2016 None cough Location in the throat 09/27/2016 None cough Quality acute 09/27/2016 None cough Triggers post nasal drip 09/27/2016 None cough Pertinent Findings Denies fever 09/27/2016 None cough Pertinent Findings nasal congestion 09/27/2016 None cough Pertinent Findings Denies nausea 09/27/2016 None cough Pertinent Findings Denies purulent sputum 09/27/2016 None cough Pertinent Findings post nasal drip 09/27/2016 None hypertension Quality stable 03/21/2016 None hypertension Onset and Resolution ongoing 03/21/2016 None hypertension Blood Pressure Values not checking blood pressure at home 03/21/2016 None hypertension Alleviating Factors medication 03/21/2016 None hypertension Pertinent Findings Denies dizziness 03/21/2016 None hypertension Pertinent Findings dyspnea 03/21/2016 "normal" hypertension Pertinent Findings Denies edema 03/21/2016 None hyperlipidemia Onset and Resolution gradual in onset 03/21/2016 None hyperlipidemia Onset and Resolution ongoing 03/21/2016 None hyperlipidemia Onset of Symptom during adulthood 03/21/2016 None hyperlipidemia Alleviating Factors medication 03/21/2016 None hyperlipidemia Exacerbating Factors diet 03/21/2016 None arrhythmia Quality tachycardia 03/21/2016 None arrhythmia Onset and Resolution ongoing 03/21/2016 Dr. Avila managing arrhythmia Alleviating Factors medication 03/21/2016 None cough Quality intermittent 03/21/2016 None cough Pertinent Findings sputum production 03/21/2016 clear phlegm cough Pertinent Findings Denies fever 03/21/2016 None cough Pertinent Findings Denies chills 03/21/2016 None cough Pertinent Findings hoarseness 03/21/2016 None cough Quality acute 03/21/2016 None diarrhea Quality loose 02/01/2016 None diarrhea Onset and Resolution sudden in onset 02/01/2016 None diarrhea Onset of Symptom 3 weeks ago 02/01/2016 None diarrhea Frequency of Episodes >8 stools per day 02/01/2016 None diarrhea Timing of Episodes no specific time 02/01/2016 None diarrhea Pertinent Findings Denies cramping 02/01/2016 None diarrhea Pertinent Findings Denies fever 02/01/2016 None hypertension Quality stable 11/23/2015 None hypertension Onset and Resolution ongoing 11/23/2015 None hypertension Alleviating Factors medication 11/23/2015 None hypertension Pertinent Findings Denies dizziness 11/23/2015 None hypertension Pertinent Findings Denies dyspnea 11/23/2015 None hypertension Pertinent Findings Denies edema 11/23/2015 None hyperlipidemia Onset and Resolution ongoing 11/23/2015 None hyperlipidemia Onset of Symptom during adulthood 11/23/2015 None hyperlipidemia Alleviating Factors medication 11/23/2015 None hyperlipidemia Exacerbating Factors diet 11/23/2015 None arrhythmia Quality tachycardia 11/23/2015 None arrhythmia Onset and Resolution ongoing 11/23/2015 Dr. Avila managing arrhythmia Alleviating Factors medication 11/23/2015 None arrhythmia Pertinent Findings Denies nausea 11/23/2015 None hypertension Blood Pressure Values not checking blood pressure at home 11/23/2015 None hyperlipidemia Onset and Resolution gradual in onset 11/23/2015 None skin lesion Onset and Resolution ongoing 11/23/2015 None skin lesion Location in the right postauricular area 11/23/2015 None nasal allergies Location in both nares 11/23/2015 None nasal allergies Onset and Resolution ongoing 11/23/2015 None nasal allergies Pertinent Findings hoarseness 11/23/2015 None nasal allergies Exacerbating Factors allergen exposure 11/23/2015 None cough Location in the throat 10/14/2015 None cough Quality productive 10/14/2015 None cough Onset and Resolution ongoing 10/14/2015 None cough Onset of Symptom 1 weeks ago 10/14/2015 None cough Frequency of Episodes daily 10/14/2015 None cough Pertinent Findings Denies chest discomfort 10/14/2015 None cough Pertinent Findings Denies dyspnea 10/14/2015 None cough Pertinent Findings Denies fever 10/14/2015 None cough Pertinent Findings Denies heartburn 10/14/2015 None wound follow up Procedure Performed follow up [place] 07/20/2015 right ear, left ear and left forehead wound follow up Instructions none 07/20/2015 None hypertension Quality stable 07/06/2015 None hypertension Pertinent Findings Denies dizziness 07/06/2015 None hypertension Pertinent Findings dyspnea 07/06/2015 None hypertension Pertinent Findings Denies edema 07/06/2015 None hyperlipidemia Onset and Resolution ongoing 07/06/2015 None arrhythmia Quality tachycardia 07/06/2015 None arrhythmia Onset and Resolution ongoing 07/06/2015 Dr. Avila managing arrhythmia Alleviating Factors medication 07/06/2015 None arrhythmia Pertinent Findings Denies nausea 07/06/2015 None hypertension Onset and Resolution ongoing 07/06/2015 None hypertension Blood Pressure Values patient checking blood pressure at home - did not bring in readings 07/06/2015 None hypertension Alleviating Factors medication 07/06/2015 None hyperlipidemia Onset of Symptom during adulthood 07/06/2015 None hyperlipidemia Alleviating Factors medication 07/06/2015 None hyperlipidemia Exacerbating Factors diet 07/06/2015 None new lesion Location-Major on the head 07/06/2015 None new lesion Location-Head/Neck on the left preauricular area 07/06/2015 None new lesion Quality painful 07/06/2015 None new lesion Onset and Resolution ongoing 07/06/2015 None new lesion Onset of Symptom 2 months ago 07/06/2015 None Hospital Follow Up _ cardiac disease 03/29/2015 None Hospital Follow Up Pertinent Findings Denies pain 03/29/2015 None Hospital Follow Up Pertinent Findings Denies fever 03/29/2015 None Hospital Follow Up Exacerbating Factors exertion 03/29/2015 None hypertension Onset and Resolution ongoing 03/08/2015 None hypertension Pertinent Findings Denies dizziness 03/08/2015 None hypertension Pertinent Findings Denies dyspnea 03/08/2015 None hypertension Pertinent Findings Denies edema 03/08/2015 None hyperlipidemia Onset and Resolution ongoing 03/08/2015 None hypertension Quality stable 03/08/2015 None arrhythmia Quality tachycardia 03/08/2015 None arrhythmia Onset and Resolution ongoing 03/08/2015 Dr. Avila managing arrhythmia Alleviating Factors medication 03/08/2015 Started on Digoxin arrhythmia Pertinent Findings nausea 03/08/2015 None cough Location in the throat 02/02/2015 None cough Quality productive 02/02/2015 None cough Onset and Resolution ongoing 02/02/2015 None cough Onset of Symptom 1 months ago 02/02/2015 None cough Pertinent Findings Denies chest discomfort 02/02/2015 None cough Pertinent Findings Denies dyspnea 02/02/2015 None cough Pertinent Findings Denies fever 02/02/2015 None sinus congestion Onset and Resolution ongoing 02/02/2015 None sinus congestion Onset of Symptom 1 months ago 02/02/2015 None sinus congestion Pertinent Findings cough 02/02/2015 None sinus congestion Pertinent Findings Denies fever 02/02/2015 None cough Limitation on Activities does not limit activities 02/02/2015 None cough Frequency of Episodes increasing 02/02/2015 None cough Triggers known allergens 02/02/2015 None sinus congestion Severity moderate 02/02/2015 None sinus congestion Frequency of Episodes increasing 02/02/2015 None sinus congestion Length of Episodes 1 months 02/02/2015 None sinus congestion Timing of Episodes all day long 02/02/2015 None sinus congestion Triggers allergens 02/02/2015 None sinus congestion Location on both sides 02/02/2015 None sinus congestion Quality acute 02/02/2015 None hypertension Onset and Resolution ongoing 09/22/2014 None hypertension Blood Pressure Values patient checking blood pressure at home - did not bring in readings 09/22/2014 None hypertension Pertinent Findings Denies dizziness 09/22/2014 None hypertension Pertinent Findings Denies dyspnea 09/22/2014 None hypertension Pertinent Findings Denies edema 09/22/2014 None hyperlipidemia Onset and Resolution ongoing 09/22/2014 None Advance Directives No Advance Directive data Encounters Encounter Performer Location Codes Date EST. PATIENT, LEVEL IV Diagnosis: Other acute sinusitis[ICD10: J01.80] Diagnosis: Other allergic rhinitis[ICD10: J30.89] Diagnosis: Other mucopurulent conjunctivitis, right eye[ICD10: H10.021] Sandra Parsons MD, [facility] CPT-4: 08140 07/08/2018 07061 EST. PATIENT, LEVEL III Diagnosis: Cellulitis of right upper limb[ICD10: L03.113] Sandra Parsons MD, [facility] CPT-4: 45104 06/04/2018 ([id number]) 90273 EST. PATIENT, LEVEL IV Diagnosis: Essential (primary) hypertension[ICD10: I10] Diagnosis: Chronic atrial fibrillation[ICD10: I48.2] Diagnosis: Mixed hyperlipidemia[ICD10: E78.2] Steffany Parsons MD, [facility] CPT- 4: 66133 04/23/2018 92068 EST. PATIENT, LEVEL IV Diagnosis: Other acute sinusitis[ICD10: J01.80] Diagnosis: Other allergic rhinitis[ICD10: J30.89] Sandra Parsons MD, [facility] CPT- 4: 03916 02/28/2018 37331 EST. PATIENT, LEVEL IV Diagnosis: Other acute sinusitis[ICD10: J01.80] Diagnosis: Other allergic rhinitis[ICD10: J30.89] Sandra Parsons MD, [facility] CPT- 4: 42649 02/19/2018 77973 EST. PATIENT, LEVEL III Diagnosis: Acute laryngopharyngitis[ICD10: J06.0] Diagnosis: Other allergic rhinitis[ICD10: J30.89] Sandra Parsons MD, [facility] CPT- 4: 55301 11/09/2017 ([id number]) 89395 EST. PATIENT, LEVEL IV Diagnosis: Essential (primary) hypertension[ICD10: I10] Diagnosis: Chronic atrial fibrillation[ICD10: I48.2] Steffany Parsons MD [facility] CPT-4: 11789 10/22/2017 ([id number]) 63350 EST. PATIENT, LEVEL IV Diagnosis: Essential (primary) hypertension[ICD10: I10] Diagnosis: Chronic atrial fibrillation[ICD10: I48.2] Diagnosis: Cough[ICD10: R05] Steffany Parsons MD, [facility] CPT-4: 61437 07/23/2017 ([id number]) 10376 EST. PATIENT, LEVEL III Diagnosis: Cough[ICD10: R05] Diagnosis: Other allergic rhinitis[ICD10: J30.89] Diagnosis: Chronic obstructive pulmonary disease with (acute) exacerbation[ICD10: J44.1] Lucrecia Parsons MD [facility] CPT-4: 30881 07/09/2017 ([id number]) 19848 EST. PATIENT, LEVEL III Diagnosis: Cough[ICD10: R05] Diagnosis: Other allergic rhinitis[ICD10: J30.89] Diagnosis: Chronic obstructive pulmonary disease with (acute) exacerbation[ICD10: J44.1] Lucrecia Parsons MD [facility] CPT-4: 73884 06/29/2017 ([id number]) 95940 EST. PATIENT, LEVEL III Diagnosis: Essential (primary) hypertension[ICD10: I10] Diagnosis: Cough[ICD10: R05] Steffany Parsons MD [facility] CPT-4: 23385 04/23/2017 ([id number]) 00613 EST. PATIENT, LEVEL IV Diagnosis: Hemoptysis[ICD10: R04.2] Diagnosis: Essential (primary) hypertension[ICD10: I10] Diagnosis: Chronic obstructive pulmonary disease with acute lower respiratory infection[ICD10: J44.0] Steffany Parsons MD, [facility] CPT-4: 98405 04/10/2017 73502 EST. PATIENT, LEVEL III Diagnosis: Acute laryngopharyngitis[ICD10: J06.0] Diagnosis: Other allergic rhinitis[ICD10: J30.89] Sandra Parsons MD, [facility] CPT- 4: 60029 03/29/2017 ([id number]) 62494 EST. PATIENT, LEVEL III Diagnosis: Pneumonia due to Mycoplasma pneumoniae[ICD10: J15.7] Diagnosis: Cough[ICD10: R05] Diagnosis: Other chest pain[ICD10: R07.89] Steffany Parsons MD, [facility] CPT-4: 86639 02/06/2017 14437 EST. PATIENT, LEVEL IV Diagnosis: Cough[ICD10: R05] Diagnosis: Shortness of breath[ICD10: R06.02] Diagnosis: Gastro-esophageal reflux disease without esophagitis[ICD10: K21.9] Sandra Parsons MD, [facility] CPT-4: 58396 11/06/2016 95809 EST. PATIENT, LEVEL IV Diagnosis: Other allergic rhinitis[ICD10: J30.89] Diagnosis: Acute bronchitis due to other specified organisms[ICD10: J20.8] Sandra Parsons MD, [facility] CPT-4: 26797 09/27/2016 ([id number]) 10986 EST. PATIENT, LEVEL IV Diagnosis: Essential (primary) hypertension[ICD10: I10] Diagnosis: Chronic atrial fibrillation[ICD10: I48.2] Diagnosis: Encounter for therapeutic drug level monitoring[ICD10: Z51.81] Steffany Parsons MD, [facility] CPT-4: 23282 03/21/2016 ([id number]) 72672 EST. 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 PATIENT, LEVEL III Diagnosis: Allergic rhinitis due to pollen[ICD10: J30.1] Diagnosis: Actinic keratosis[ICD10: L57.0] Lucrecia Parsons MD, [facility] CPT-4: 94973 10/14/2015 ([id number] 88319 EST. PATIENT, LEVEL IV Diagnosis: Essential (primary) hypertension[ICD10: I10] Diagnosis: Chronic atrial fibrillation[ICD10: I48.2] Steffany Parsons MD [facility] CPT-4: 77844 07/06/2015 92372 EST. PATIENT, LEVEL III Diagnosis: Essential (primary) hypertension[ICD10: I10] Diagnosis: Chronic atrial fibrillation[ICD10: I48.2] Diagnosis: Shortness of breath[ICD10: R06.02] Diagnosis: Melena[ICD10: K92.1] Sandra Parsons MD, [facility] CPT-4: 78806 03/29/2015 ([id number]) 89609 EST. PATIENT, LEVEL IV Diagnosis: Essential (primary) hypertension[ICD10: I10] Diagnosis: Chronic atrial fibrillation[ICD10: I48.2] Diagnosis: Cough[ICD10: R05] Steffany Parsons MD, [facility] CPT-4: 29132 03/08/2015 ([id number]) 88562 EST. PATIENT, LEVEL III Diagnosis: Other seasonal allergic rhinitis[ICD10: J30.2] Diagnosis: Other lesions of oral mucosa[ICD10: K13.79] Lucrecia Parsons MD, [facility] CPT-4: 66406 02/02/2015 ([id number]) OFFICE VISIT, NEW - LEVEL 4 Diagnosis: ESSENTIAL HYPERTENSION[ICD9: 401.9] Diagnosis: HYPERLIPIDEMIA[ICD9: 272.4] Diagnosis: ACTINIC KERATOSIS[ICD9: 702.0] Steffany Parsons MD, [facility] CPT-4: 30658 09/22/2014 Plan of Care Planned Activity Notes Codes Status Date Visit Plan: Sinusitis - Pt has acute infection - pain in face, maxillary region, Pt informed to use decongestant, RX given to patient, sinus rinses also recommended. Call if symptoms do not show improvement. Allergies - chronic - recommended pt to use allergy medication as prescribed. Pt has been counseled as to the appropriate use of the medication. Pt to call if allergy symptoms are not controlled with the medication. If using nasal spray, instructions as follows: Nasal spray- use twice daily, one spray per nostril twice daily, after 30 minutes, rinse out nose with saline spray.. Use opposite hand per nostril to spray in the nasal steroid allergy spray. Conjunctivitis - rx for eye drops/lube sent electronically to the patient's pharmacy. The patient has been instructed to cleanse affected eye with warm washcloth, then place medication into affected eye four times daily. 07/08/2018 App[facility]ment: [phone] [facility] ([facility] min) Moderate 07/08/2018 Patient Education: Patient Medication Summary Completed 07/08/2018 Appointment: Nurse Visit 06/07/2018 Visit Plan: Cellulitis - possible spider bite - The patient was instructed in appropriate wound care. The patient was instructed to use the antibiotic and ointment as per RX. The patient is to call for any change in symptoms, increase in size of the lesion, increase in pain, worsening redness, warmth, discharge. 06/04/2018 Appointment: [phone] ([facility] min) Complex 06/04/2018 Patient Education: Patient Medication Summary Completed 06/04/2018 Visit Plan: Hypertension - well controlled - continue with current medications, continue with no added salt diet. Pt has been encouraged to exercise daily. The pt has been advised to call the office if there are any acute concerns about change in blood pressure readings at home. Hyperlipidemia - pt has been counseled about appropriate diet, exercise, and need for low fat food choices. I have discussed the need for the patient to take medications as prescribed. If the patient has negative side effects from the medication, they are to CALL the office and not abruptly discontinue the medication without discussion with a practitioner in the office. We will check labs in 3-6 months for follow up on the patient's chronic medical problem and to assure normal liver response to medications. Atrial Fibrillation - pt on chronic anticoagulation and is currently rate controlled. The pt is to have labs done as appropriate to monitor medication levels and is to report if they start to feel as if their heart rate is becoming uncontrolled. Voice change - discussed with pt - if this worsens - we need to consider that this may be due to the ARB and we need to consider change of this medication. - He was not interested in further study to work this up at this time. 04/23/2018 Appointment: Steffany Parsons WPtel: [address] [place], [place] [phone] (15 min) Moderate 04/23/2018 Patient Education: Patient Medication Summary Completed 04/23/2018 Patient Education: Hypertension Completed 04/23/2018 Patient Education: Cholesterol Management Completed 04/23/2018 Visit Plan: Sinusitis - Pt has acute infection - pain in face, maxillary region, Pt informed to use decongestant, RX given to patient, sinus rinses also recommended. Call if symptoms do not show improvement. Allergies - chronic - recommended pt to use allergy medication as prescribed. Pt has been counseled as to the appropriate use of the medication. Pt to call if allergy symptoms are not controlled with the medication. If using nasal spray, instructions as follows: Nasal spray- use twice daily, one spray per nostril twice daily, after 30 minutes, rinse out nose with saline spray.. Use opposite hand per nostril to spray in the nasal steroid allergy spray. 02/28/2018 Appointment: Sandra Tim WPtel: [facility]5 [phone] (15 min) Moderate 02/28/2018 Patient Education: Patient Medication Summary Completed 02/28/2018 Appointment: Injection 02/26/2018 Patient Education: Patient Medication Summary Completed 02/26/2018 Visit Plan: Sinusitis - Pt has acute infection - pain in face, maxillary region, Pt informed to use decongestant, RX given to patient, sinus rinses also recommended. Call if symptoms do not show improvement. Allergies - chronic - recommended pt to use allergy medication as prescribed. Pt has been counseled as to the appropriate use of the medication. Pt to call if allergy symptoms are not controlled with the medication. If using nasal spray, instructions as follows: Nasal spray- use twice daily, one spray per nostril twice daily, after 30 minutes, rinse out nose with saline spray.. Use opposite hand per nostril to spray in the nasal steroid allergy spray. 02/19/2018 Appointment: Sandra Tim WPtel: [address] [place], [place] [phone] (15 min) Moderate 02/19/2018 Patient Education: Patient Medication Summary Completed 02/19/2018 Visit Plan: URI - Pt advised to increase fluids, vitamin C. Discussed natural and expected course of this diagnosis and need to alert me if symptoms do not follow expected course, or if any worse. RX sent to patient's pharmacy. Allergies - chronic - recommended pt to use allergy medication as prescribed. Pt has been counseled as to the appropriate use of the medication. Pt to call if allergy symptoms are not controlled with the medication. If using nasal spray, instructions as follows: Nasal spray- use twice daily, one spray per nostril twice daily, after 30 minutes, rinse out nose with saline spray.. Use opposite hand per nostril to spray in the nasal steroid allergy spray. 11/09/2017 Appointment: Sandra Tim WPtel: [facility] (15 min) Moderate 11/09/2017 Patient Education: Patient Medication Summary Completed 11/09/2017 Visit Plan: Hypertension - well controlled - continue with current medications, continue with no added salt diet. Pt has been encouraged to exercise daily. The pt has been advised to call the office if there are any acute concerns about change in blood pressure readings at home. Atrial Fibrillation - pt on chronic anticoagulation and is currently rate controlled. The pt is to have labs done as appropriate to monitor medication levels and is to report if they start to feel as if their heart rate is becoming uncontrolled. 10/22/2017 Appointment: Steffany Parsons WPtel: [facility]2 [facility] (15 min) Moderate 10/22/2017 Patient Education: Patient Medication Summary Completed 10/22/2017 Visit Plan: Medicare Exam - today we discussed the patients past history, immunizations, preventative exams/evaluations - colonoscopy, fecal occult blood testing, routine labs for renal function, glucose, cholesterol, osteoporosis evaluations, cardiovascular testing and cancer screenings. We have also discussed mental health and the signs/symptoms of depression. The patient was advised of home safety evaluations and the need to make sure that as the aging process continues, we need to be aware of different ways to make the home a safer place to reside. The patient has also been counseled that exercise is necessary - and of utmost importance as we age to help decrease fall risk and to maintain independece in the home. Today we discussed the need for the patient to create paperwork for Advanced directives as well as for the patient to provide this office with a copy of her DOPA paperwork for health care surrogate. 2017 Patient Education: Patient Medication Summary Completed 2017 Visit Plan: Hypertension - well controlled - continue with current medications, continue with no added salt diet. Pt has been encouraged to exercise daily. The pt has been advised to call the office if there are any acute concerns about change in blood pressure readings at home. Cough and seasonal allergies - I suspect the cough is due to his allergies - recommended pt to do the following: use flonase before you go outside to cut the grass - then when you come in from cutting the grass - use saline spray in the nose - (ocean nasal spray) 07/23/2017 Appointment: Steffany Parsons WPtel: [phone] [phone] (15 min) Moderate 07/23/2017 Patient Education: Patient Medication Summary Completed 07/23/2017 Visit Plan: COPD EXACERBATION - COPD is a chronic problem for this patient, however, the pt is experiencing an acute exacerbation of the COPD. Pt is to receive appropriate treatment as an out patient, but the pt is aware that if symptoms worsen or do not improve, to call [facility] for instructions, or go to the EMERGENCY ROOM if the symptoms are beyond acute control with rescue medications. We have reviewed chronic treatment strategy, symptom control, and plans for acute exacerbations. No changes today to the current treatment plan as the patient is stable, monitor for acute changes. 07/09/2017 Appointment: Lucrecia Yeager WPtel: [phone] [phone] (30 min) Complex 07/09/2017 Patient Education: Patient Medication Summary Completed 07/09/2017 Visit Plan: Allergies - chronic - recommended pt to use allergy medication as prescribed. Pt has been counseled as to the appropriate use of the medication. Pt to call if allergy symptoms are not controlled with the medication. If using nasal spray, instructions as follows: Nasal spray- use twice daily, one spray per nostril twice daily, after 30 minutes, rinse out nose with saline spray.. Use opposite hand per nostril to spray in the nasal steroid allergy spray. COPD EXACERBATION - COPD is a chronic problem for this patient, however, the pt is experiencing an acute exacerbation of the COPD. Pt is to receive appropriate treatment as an out patient, but the pt is aware that if symptoms worsen or do not improve, to call [facility] for instructions, or go to the EMERGENCY ROOM if the symptoms are beyond acute control with rescue medications. We have reviewed chronic treatment strategy, symptom control, and plans for acute exacerbations. No changes today to the current treatment plan as the patient is stable, monitor for acute changes. 06/29/2017 Appointment: Lucrecia Yeager WPtel: [facility]5 [address] [place] (15 min) Moderate 06/29/2017 Patient Education: Patient Medication Summary Completed 06/29/2017 Appointment: Steffany Parsons WPtel: [facility]7 [address] (15 min) Moderate 04/30/2017 Visit Plan: Hypertension - well controlled - continue with current medications, continue with no added salt diet. Pt has been encouraged to exercise daily. The pt has been advised to call the office if there are any acute concerns about change in blood pressure readings at home. Cough, shortness of breath - resolved finish breathing treatments. 04/23/2017 Appointment: Steffany Parsons WPtel: [facility]6 [facility] (15 min) Moderate 04/23/2017 Patient Education: Patient Medication Summary Completed 04/23/2017 Visit Plan: Hemoptysis and COPD exacerbation - continue with antibiotics, rx for antifungal tablet and suspension. chest xray ordered, monitor symptoms. Pt to stop aspirin x 1 week, continue with eliquis. call if s ymptoms are not improving. rx for phenergan with codeine. 04/10/2017 Appointment: Steffany Parsons WPtel: [facility]7 [address] (15 min) Moderate 04/10/2017 Patient Education: Patient Medication Summary Completed 04/10/2017 Visit Plan: URI - Pt advised to increase fluids, vitamin C. Discussed natural and expected course of this diagnosis and need to alert me if symptoms do not follow expected course, or if any worse. RX sent to patient's pharmacy. Allergies - chronic - recommended pt to use allergy medication as prescribed. Pt has been counseled as to the appropriate use of the medication. Pt to call if allergy symptoms are not controlled with the medication. If using nasal spray, instructions as follows: Nasal spray- use twice daily, one spray per nostril twice daily, after 30 minutes, rinse out nose with saline spray.. Use opposite hand per nostril to spray in the nasal steroid allergy spray. 03/29/2017 Appointment: Sandra Tim WPtel: [phone] [facility] (15 min) Moderate 03/29/2017 Patient Education: Patient Medication Summary Completed 03/29/2017 Visit Plan: Pneumonia - Pt has been diagnosed with pneumonia by physical exam. A chest xray has been ordered as have antibiotics. The pt is aware of the diagnosis and the need for acute treatment of this illness. Cough - rx for promethazine/codeine syrup for cough. 02/06/2017 Appointment: Steffany Parsons WPtel: [facility]7 [facility]66[facility] (15 min) Moderate 02/06/2017 Patient Education: Patient Medication Summary Completed 02/06/2017 Patient Education: Obesity Completed 02/06/2017 Visit Plan: Cough, shortness of breath - ongoing - will order X-ray - will treat as indicated - pt is to notify clinic if symptoms do not improve, if they worsen, or with any changes, questions, or concerns. Esophageal Reflux - the patient has been counseled against excessive intake of caffeine, spicy foods, peppermint, and cinnamon - all of which can exacerbate esophageal reflux. The patient is to take medications as prescribed and call the office if the symptoms are not improving. 11/06/2016 Appointment: Sandra Tim WPtel: [facility] (15 min) Moderate 11/06/2016 Patient Education: Patient Medication Summary Completed 11/06/2016 Visit Plan: Allergies - chronic - recommended pt to use allergy medication as prescribed. Pt has been counseled as to the appropriate use of the medication. Pt to call if allergy symptoms are not controlled with the medication. If using nasal spray, instructions as follows: Nasal spray- use twice daily, one spray per nostril twice daily, after 30 minutes, rinse out nose with saline spray.. Use opposite hand per nostril to spray in the nasal steroid allergy spray. Bronchitis - acute case of bronchitis identified. Pt given rocephin IM and is to continue with his dental prophylactic abx as directed. Pt has been instructed to call if symptoms are not improved, or if symptoms acutely worsen. 09/27/2016 Appointment: Sandra Tim WPtel: [phone] [id number] (30 min) Complex 09/27/2016 Patient Education: Patient Medication Summary Completed 09/27/2016 Visit Plan: Hypertension - well controlled - continue with current medications, continue with no added salt diet. Pt has been encouraged to exercise daily. The pt has been advised to call the office if there are any acute concerns about change in blood pressure readings at home. Atrial Fibrillation - pt on chronic anticoagulation and is currently rate controlled. The pt is to have labs done as appropriate to monitor medication levels and is to report if they start to feel as if their heart rate is becoming uncontrolled. 03/21/2016 Appointment: Steffany Parsons WPtel: [phone] [facility] (15 min) Moderate 03/21/2016 Patient Education: Patient Medication Summary Completed 03/21/2016 Patient Education: Obesity Completed 03/21/2016 Visit Plan: Diarrhea-recent abx use-check stool for cdiff-increase probiotic to twice daily-bland diet advance as tolerated-call if symptoms do not resolve or if any worse. Patient verbalized understanding of plan. 02/01/2016 Appointment: Lucrecia Yeager WPtel: [phone] [id number] (15 min) Moderate 02/01/2016 Patient Education: Patient Medication Summary Completed 02/01/2016 Patient Education: Obesity Completed 02/01/2016 Referral: Alexi Honeycutt [facility] Info faxed Completed 11/27/2015 Visit Plan: Hypertension - well controlled - continue with current medications, continue with no added salt diet. Pt has been encouraged to exercise daily. The pt has been advised to call the office if there are any acute concerns about change in blood pressure readings at home. Allergies - chronic - recommended pt to use allergy medication as prescribed. Pt has been counseled as to the appropriate use of the medication. Pt to call if allergy symptoms are not controlled with the medication. If using nasal spray, instructions as follows: Nasal spray- use twice daily, one spray per nostril twice daily, after 30 minutes, rinse out nose with saline spray.. Use opposite hand per nostril to spray in the nasal steroid allergy spray. Referral to Dr. Honeycutt - the pt needs excision of the lesion on his ear 11/23/2015 Patient Education: Patient Medication Summary Completed 11/23/2015 Appointment: Steffany Parsons WPtel: [facility] (15 min) Moderate 11/15/2015 Visit Plan: Allergies - chronic - recommended pt to use allergy medication as prescribed. Pt has been counseled as to the appropriate use of the medication. Pt to call if allergy symptoms are not controlled with the medication. If using nasal spray, instructions as follows: Nasal spray- use twice daily, one spray per nostril twice daily, after 30 minutes, rinse out nose with saline spray.. Use opposite hand per nostril to spray in the nasal steroid allergy spray. Wound Instructions - Pt was instructed to keep the wound clean, wash with antibacterial soap, use triple antibiotic ointment, call if redness, pustular drainage, or any other acute concerns. Recommend referral to Dr Honeycutt if left ear lesion does not heal 10/14/2015 Appointment: Lucrecia Yeager WPtel: [id number] (15 min) Moderate 10/14/2015 Patient Education: Patient Medication Summary Completed 10/14/2015 Patient Education: Obesity Completed 10/14/2015 Visit Plan: Wound Instructions - Pt was instructed to keep the wound clean, wash with antibacterial soap, use triple antibiotic ointment, call if redness, pustular drainage, or any other acute concerns. 07/20/2015 Visit Plan: Wound Instructions - Pt was instructed to keep the wound clean, wash with antibacterial soap, use triple antibiotic ointment, call if redness, pustular drainage, or any other acute concerns. 07/20/2015 Appointment: Lucrecia Yeager WPtel: [phone] [id number] (30 min) Complex 07/20/2015 Patient Education: Patient Medication Summary Completed 07/20/2015 Visit Plan: Hypertension - well controlled - continue with current medications, continue with no added salt diet. Pt has been encouraged to exercise daily. The pt has been advised to call the office if there are any acute concerns about change in blood pressure readings at home. Atrial Fibrillation - pt on chronic anticoagulation and is currently rate controlled. The pt is to have labs done as appropriate to monitor medication levels and is to report if they start to feel as if their heart rate is becoming uncontrolled. Wound Instructions - Pt was instructed to keep the wound clean, wash with antibacterial soap, use triple antibiotic ointment, call if redness, pustular drainage, or any other acute concerns. 07/06/2015 Appointment: Steffany Parsons WPtel: [phone] [facility] (15 min) Moderate 07/06/2015 Patient Education: Patient Medication Summary Completed 07/06/2015 Patient Education: Obesity Completed 07/06/2015 Patient Education: Hypertension Completed 07/06/2015 Patient Education: Patient Medication Summary Completed 04/06/2015 Visit Plan: Hospital follow up - pt was in the hospital related to dyspnea and chest pain. Pt also has a follow up appointment with Dr. Avila and Dr. Veloz. Hypertension - well controlled - continue with current m edications, continue with no added salt diet. Pt has been encouraged to exercise daily. The pt has been advised to call the office if there are any acute concerns about change in blood pressure readings at home. Atrial Fibrillation - pt on chronic anticoagulation and is currently rate controlled. The pt is to have labs done as appropriate to monitor medication levels and is to report if they start to feel as if their heart rate is becoming uncontrolled - pt has an upcoming appointment with cardiology coordinator to possibly have an ablation done. Bloody stool - pt states that he had bright red blood in his stool, states he thinks it is from straining to go - will check H&H 03/29/2015 Patient Education: Patient Medication Summary Completed 03/29/2015 Patient Education: Hypertension Completed 03/29/2015 Visit Plan: Hypertension - well controlled - continue with current medications, continue with no added salt diet. Pt has been encouraged to exercise daily. The pt has been advised to call the office if there are any acute concerns about change in blood pressure readings at home. Atrial Fibrillation -recommended pt to keep appt with Dr. Avila - 03/08/2015 Patient Education: Patient Medication Summary Completed 03/08/2015 Patient Education: Hypertension Completed 03/08/2015 [id number] [facility] Completed 02/13/2015 Visit Plan: Allergies - chronic - recommended pt to use allergy medication as prescribed. Pt has been counseled as to the appropriate use of the medication. Pt to call if allergy symptoms are not controlled with the medication. If using nasal spray, instructions as follows: Nasal spray- use twice daily, one spray per nostril twice daily, after 30 minutes, rinse out nose with saline spray.. Use opposite hand per nostril to spray in the nasal steroid allergy spray. Kenalog injection today in the office Lesion of mouth-refer to Dr Honeycutt for evaluation and biopsy 02/02/2015 Patient Education: Patient Medication Summary Completed 02/02/2015 Care Plan: Referral Order SNOMED-CT : [id number] Ordered 02/02/2015 Visit Plan: Hypertension - well controlled - continue with current medications, continue with no added salt diet. Pt has been encouraged to exercise daily. The pt has been advised to call the office if there are any acute concerns about change in blood pressure readings at home. Hyperlipidemia - pt has been counseled about appropriate diet, exercise, and need for low fat food choices. I have discussed the need for the patient to take medications as prescribed. If the patient has negative side effects from the medication, they are to CALL the office and not abruptly discontinue the medication without discussion with a practitioner in the office. We will check labs in 3-6 months for follow up on the patient's chronic medical problem and to assure normal liver response to medications. Skin lesions - rx for effudex given to patient, to use on lesions, call if not improving. 09/22/2014 Appointment: Steffany Parsons WPtel: [address] [place], [place] [id number] [place] (S) New Patient 09/22/2014 Patient Education: Patient Medication Summary Completed 09/22/2014 Patient Education: Hypertension Completed 09/22/2014 [facility] [place] Referral Initiated Instructions Comment . Hypertension - well controlled - continue with current medications, continue with no added salt diet. Pt has been encouraged to exercise daily. The pt has been advised to call the office if there are any acute concerns about change in blood pressure readings at home. Atrial Fibrillation - pt on chronic anticoagulation and is currently rate controlled. The pt is to have labs done as appropriate to monitor medication levels and is to report if they start to feel as if their heart rate is becoming uncontrolled. use flonase before you go outside to cut the grass - then when you come in from cutting the grass - use saline spray in the nose - (ocean nasal spray) . Hypertension - well controlled - continue with current medications, continue with no added salt diet. Pt has been encouraged to exercise daily. The pt has been advised to call the office if there are any acute concerns about change in blood pressure readings at home. Cough and seasonal allergies - I suspect the cough is due to his allergies - recommended pt to do the following: use flonase before you go outside to cut the grass - then when you come in from cutting the grass - use saline spray in the nose - (ocean nasal spray) Steroid shot today stop the keflex and start the doxycycline take a probiotic (BetBox, Autocosta, or generic) twice a day while on the doxycycline antibiotic eye drop - use for right eye, but you can start it in the left eye if it gets irritated at all continue warm compress to the eye as needed . Sinusitis - Pt has acute infection - pain in face, maxillary region, Pt informed to use decongestant, RX given to patient, sinus rinses also recommended. Call if symptoms do not show improvement. Allergies - chronic - recommended pt to use allergy medication as prescribed. Pt has been counseled as to the appropriate use of the medication. Pt to call if allergy symptoms are not controlled with the medication. If using nasal spray, instructions as follows: Nasal spray- use twice daily, one spray per nostril twice daily, after 30 minutes, rinse out nose with saline spray.. Use opposite hand per nostril to spray in the nasal steroid allergy spray. Conjunctivitis - rx for eye drops/lube sent electronically to the patient's pharmacy. The patient has been instructed to cleanse affected eye with warm washcloth, then place medication into affected eye four times daily. . Hemoptysis and COPD exacerbation - continue with antibiotics, rx for antifungal tablet and suspension. chest xray ordered, monitor symptoms. Pt to stop aspirin x 1 week, continue with eliquis. call if symptoms are not improving. rx for phenergan with codeine. . COPD EXACERBATION - COPD is a chronic problem for this patient, however, the pt is experiencing an acute exacerbation of the COPD. Pt is to receive appropriate treatment as an out patient, but the pt is aware that if symptoms worsen or do not improve, to call JINNY for instructions, or go to the EMERGENCY ROOM if the symptoms are beyond acute control with rescue medications. We have reviewed chronic treatment strategy, symptom control, and plans for acute exacerbations. No changes today to the current treatment plan as the patient is stable, monitor for acute changes. . Hypertension - well controlled - continue with current medications, continue with no added salt diet. Pt has been encouraged to exercise daily. The pt has been advised to call the office if there are any acute concerns about change in blood pressure readings at home. Atrial Fibrillation - pt on chronic anticoagulation and is currently rate controlled. The pt is to have labs done as appropriate to monitor medication levels and is to report if they start to feel as if their heart rate is becoming uncontrolled. . Hospital follow up - pt was in the hospital related to dyspnea and chest pain. Pt also has a follow up appointment with Dr. Avila and Dr. Veloz. Hypertension - well controlled - continue with current medications, continue with no added salt diet. Pt has been encouraged to exercise daily. The pt has been advised to call the office if there are any acute concerns about change in blood pressure readings at home. Atrial Fibrillation - pt on chronic anticoagulation and is currently rate controlled. The pt is to have labs done as appropriate to monitor medication levels and is to report if they start to feel as if their heart rate is becoming uncontrolled - pt has an upcoming appointment with cardiology coordinator to possibly have an ablation done. Bloody stool - pt states that he had bright red blood in his stool, states he thinks it is from straining to go - will check H&H . Wound Instructions - Pt was instructed to keep the wound clean, wash with antibacterial soap, use triple antibiotic ointment, call if redness, pustular drainage, or any other acute concerns. . Wound Instructions - Pt was instructed to keep the wound clean, wash with antibacterial soap, use triple antibiotic ointment, call if redness, pustular drainage, or any other acute concerns. . Hypertension - well controlled - continue with current medications, continue with no added salt diet. Pt has been encouraged to exercise daily. The pt has been advised to call the office if there are any acute concerns about change in blood pressure readings at home. Hyperlipidemia - pt has been counseled about appropriate diet, exercise, and need for low fat food choices. I have discussed the need for the patient to take medications as prescribed. If the patient has negative side effects from the medication, they are to CALL the office and not abruptly discontinue the medication without discussion with a practitioner in the office. We will check labs in 3-6 months for follow up on the patient's chronic medical problem and to assure normal liver response to medications. Skin lesions - rx for effudex given to patient, to use on lesions, call if not improving. return to clinic on Sunday for recheck. Cellulitis - possible spider bite - The patient was instructed in appropriate wound care. The patient was instructed to use the antibiotic and ointment as per RX. The patient is to call for any change in symptoms, increase in size of the lesion, increase in pain, worsening redness, warmth, discharge. . URI - Pt advised to increase fluids, vitamin C. Discussed natural and expected course of this diagnosis and need to alert me if symptoms do not follow expected course, or if any worse. RX sent to patient's pharmacy. Allergies - chronic - recommended pt to use allergy medication as prescribed. Pt has been counseled as to the appropriate use of the medication. Pt to call if allergy symptoms are not controlled with the medication. If using nasal spray, instructions as follows: Nasal spray- use twice daily, one spray per nostril twice daily, after 30 minutes, rinse out nose with saline spray.. Use opposite hand per nostril to spray in the nasal steroid allergy spray. claritin or stephen instead of the zyrtec continue nasal spray and antibiotic . URI - Pt advised to increase fluids, vitamin C. Discussed natural and expected course of this diagnosis and need to alert me if symptoms do not follow expected course, or if any worse. RX sent to patient's pharmacy. Allergies - chronic - recommended pt to use allergy medication as prescribed. Pt has been counseled as to the appropriate use of the medication. Pt to call if allergy symptoms are not controlled with the medication. If using nasal spray, instructions as follows: Nasal spray- use twice daily, one spray per nostril twice daily, after 30 minutes, rinse out nose with saline spray.. Use opposite hand per nostril to spray in the nasal steroid allergy spray. appt with Dr. Honeycutt in his clinic on Sunday of this week - on 11/27/15 - 9AM . Hypertension - well controlled - continue with current medications, continue with no added salt diet. Pt has been encouraged to exercise daily. The pt has been advised to call the office if there are any acute concerns about change in blood pressure readings at home. Allergies - chronic - recommended pt to use allergy medication as prescribed. Pt has been counseled as to the appropriate use of the medication. Pt to call if allergy symptoms are not controlled with the medication. If using nasal spray, instructions as follows: Nasal spray- use twice daily, one spray per nostril twice daily, after 30 minutes, rinse out nose with saline spray.. Use opposite hand per nostril to spray in the nasal steroid allergy spray. Referral to Dr. Honeycutt - the pt needs excision of the lesion on his ear . Hypertension - well controlled - continue with current medications, continue with no added salt diet. Pt has been encouraged to exercise daily. The pt has been advised to call the office if there are any acute concerns about change in blood pressure readings at home. Hyperlipidemia - pt has been counseled about appropriate diet, exercise, and need for low fat food choices. I have discussed the need for the patient to take medications as prescribed. If the patient has negative side effects from the medication, they are to CALL the office and not abruptly discontinue the medication without discussion with a practitioner in the office. We will check labs in 3-6 months for follow up on the patient's chronic medical problem and to assure normal liver response to medications. Atrial Fibrillation - pt on chronic anticoagulation and is currently rate controlled. The pt is to have labs done as appropriate to monitor medication levels and is to report if they start to feel as if their heart rate is becoming uncontrolled. Voice change - discussed with pt - if this worsens - we need to consider that this may be due to the ARB and we need to consider change of this medication. - He was not interested in further study to work this up at this time. . Allergies - chronic - recommended pt to use allergy medication as prescribed. Pt has been counseled as to the appropriate use of the medication. Pt to call if allergy symptoms are not controlled with the medication. If using nasal spray, instructions as follows: Nasal spray- use twice daily, one spray per nostril twice daily, after 30 minutes, rinse out nose with saline spray.. Use opposite hand per nostril to spray in the nasal steroid allergy spray. Bronchitis - acute case of bronchitis identified. Pt given rocephin IM and is to continue with his dental prophylactic abx as directed. Pt has been instructed to call if symptoms are not improved, or if symptoms acutely worsen. increase the flonase to twice daily use neosporin twice daily on the sores on your left and right ear and on the spots on your face that were treated today in clinic. . Hypertension - well controlled - continue with current medications, continue with no added salt diet. Pt has been encouraged to exercise daily. The pt has been advised to call the office if there are any acute concerns about change in blood pressure readings at home. Atrial Fibrillation - pt on chronic anticoagulation and is currently rate controlled. The pt is to have labs done as appropriate to monitor medication levels and is to report if they start to feel as if their heart rate is becoming uncontrolled. Wound Instructions - Pt was instructed to keep the wound clean, wash with antibacterial soap, use triple antibiotic ointment, call if redness, pustular drainage, or any other acute concerns. Mucinex - take twice daily with 16 ounces of water. . Hypertension - well controlled - continue with current medications, continue with no added salt diet. Pt has been encouraged to exercise daily. The pt has been advised to call the office if there are any acute concerns about change in blood pressure readings at home. Atrial Fibrillation -recommended pt to keep appt with Dr. Avila - CHECK STOOL FOR CDIFF INCREASE PROBIOTIC TO TWICE DAILY . Diarrhea-recent abx use-check stool for cdiff-increase probiotic to twice daily- bland diet advance as tolerated-call if symptoms do not resolve or if any worse. Patient verbalized understanding of plan. FLONASE NASAL SPRAY KENALOG INJECTION TODAY SHORT COURSE OF PREDNISONE -START TOMORROW . Allergies - chronic - recommended pt to use allergy medication as prescribed. Pt has been counseled as to the appropriate use of the medication. Pt to call if allergy symptoms are not controlled with the medication. If using nasal spray, instructions as follows: Nasal spray- use twice daily, one spray per nostril twice daily, after 30 minutes, rinse out nose with saline spray.. Use opposite hand per nostril to spray in the nasal steroid allergy spray. COPD EXACERBATION - COPD is a chronic problem for this patient, however, the pt is experiencing an acute exacerbation of the COPD. Pt is to receive appropriate treatment as an out patient, but the pt is aware that if symptoms worsen or do not improve, to call [facility] for instructions, or go to the EMERGENCY ROOM if the symptoms are beyond acute control with rescue medications. We have reviewed chronic treatment strategy, symptom control, and plans for acute exacerbations. No changes today to the current treatment plan as the patient is stable, monitor for acute changes. . Pneumonia - Pt has been diagnosed with pneumonia by physical exam. A chest xray has been ordered as have antibiotics. The pt is aware of the diagnosis and the need for acute treatment of this illness. Cough - rx for promethazine/codeine syrup for cough. Kenalog injection today in the office-if your symptoms persist, start claritin or zyrtec If you develop fever, worsening symptoms or other concerns, call me and we can start you on an antibiotic if needed . Allergies - chronic - recommended pt to use allergy medication as prescribed. Pt has been counseled as to the appropriate use of the medication. Pt to call if allergy symptoms are not controlled with the medication. If using nasal spray, instructions as follows: Nasal spray- use twice daily, one spray per nostril twice daily, after 30 minutes, rinse out nose with saline spray.. Use opposite hand per nostril to spray in the nasal steroid allergy spray. Kenalog injection today in the office Lesion of mouth-refer to Dr Honeycutt for evaluation and biopsy . Medicare Exam - today we discussed the patients past history, immunizations, preventative exams/evaluations - colonoscopy, fecal occult blood testing, routine labs for renal function, glucose, cholesterol, osteoporosis evaluations, cardiovascular testing and cancer screenings. We have also discussed mental health and the signs/symptoms of depression. The patient was advised of home safety evaluations and the need to make sure that as the aging process continues, we need to be aware of different ways to make the home a safer place to reside. The patient has also been counseled that exercise is necessary - and of utmost importance as we age to help decrease fall risk and to maintain independece in the home. Today we discussed the need for the patient to create paperwork for Advanced directives as well as for the patient to provide this office with a copy of her DOPA paperwork for health care surrogate. . Cough, shortness of breath - ongoing - will order X-ray - will treat as indicated - pt is to notify clinic if symptoms do not improve, if they worsen, or with any changes, questions, or concerns. Esophageal Reflux - the patient has been counseled against excessive intake of caffeine, spicy foods, peppermint, and cinnamon - all of which can exacerbate esophageal reflux. The patient is to take medications as prescribed and call the office if the symptoms are not improving. . Sinusitis - Pt has acute infection - pain in face, maxillary region, Pt informed to use decongestant, RX given to patient, sinus rinses also recommended. Call if symptoms do not show improvement. Allergies - chronic - recommended pt to use allergy medication as prescribed. Pt has been counseled as to the appropriate use of the medication. Pt to call if allergy symptoms are not controlled with the medication. If using nasal spray, instructions as follows: Nasal spray- use twice daily, one spray per nostril twice daily, after 30 minutes, rinse out nose with saline spray.. Use opposite hand per nostril to spray in the nasal steroid allergy spray. . Sinusitis - Pt has acute infection - pain in face, maxillary region, Pt informed to use decongestant, RX given to patient, sinus rinses also recommended. Call if symptoms do not show improvement. Allergies - chronic - recommended pt to use allergy medication as prescribed. Pt has been counseled as to the appropriate use of the medication. Pt to call if allergy symptoms are not controlled with the medication. If using nasal spray, instructions as follows: Nasal spray- use twice daily, one spray per nostril twice daily, after 30 minutes, rinse out nose with saline spray.. Use opposite hand per nostril to spray in the nasal steroid allergy spray. . Allergies - chronic - recommended pt to use allergy medication as prescribed. Pt has been counseled as to the appropriate use of the medication. Pt to call if allergy symptoms are not controlled with the medication. If using nasal spray, instructions as follows: Nasal spray- use twice daily, one spray per nostril twice daily, after 30 minutes, rinse out nose with saline spray.. Use opposite hand per nostril to spray in the nasal steroid allergy spray. Wound Instructions - Pt was instructed to keep the wound clean, wash with antibacterial soap, use triple antibiotic ointment, call if redness, pustular drainage, or any other acute concerns. Recommend referral to Dr Honeycutt if left ear lesion does not heal . Hypertension - well controlled - continue with current medications, continue with no added salt diet. Pt has been encouraged to exercise daily. The pt has been advised to call the office if there are any acute concerns about change in blood pressure readings at home. Cough, shortness of breath - resolved finish breathing treatments.
--- OUTSIDE RECORDS SUMMARY | 2018-08-31 18:51 | XMS REPORT | CCD ---
Author Author [facility] Organization [facility] Address [address] [place] [address] Phone Care Team Providers Care Energy Conservation Representative Name Role Phone PP Unavailable CCM Unavailable Summary Purpose Interface Exchange Insurance Providers Payer name Policy type / Coverage type Covered libertarian ID Effective Begin Date Effective End Date [facility] Commercial Insurance [id number] Unknown Unknown Family history Runs in the family Diagnosis Age At Onset Hypertension Unknown Social History Social History Element Codes Description Effective Dates Marital status Unknown joe 09/22/2014 Number of children Unknown 5 09/22/[address]: 9834910 Quit over 10 years ago 09/22/[address]: 501097335 Never drinks alcohol 09/22/2014 Allergies, Adverse Reactions, Alerts Allergies, Adverse Reactions, Alerts data not found Past Medical History Illness Codes Condition Status Onset Date Resolved Date Acute bronchitis due to other specified organisms ICD-9: 466.0 ICD-10: J20.8 Active 09/27/2016 Unknown Other allergic rhinitis ICD-9: 477.8 ICD-10: J30.89 Active 09/27/2016 Unknown Chronic atrial fibrillation ICD-9: 427.31 ICD-10: I48.2 Active 03/20/2016 Unknown Encounter for therapeutic drug level monitoring ICD-9: V58.83 ICD-10: Z51.81 Active 03/20/2016 Unknown Essential (primary) hypertension ICD-9: 401.9 ICD-10: I10 Active 09/21/2014 Unknown 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 ICD-10: K59.1 Active 01/31/2016 Unknown Allergic rhinitis due to pollen ICD-9: 477.9 ICD-10: J30.1 Active 11/22/2015 Unknown Cough ICD-9: 786.2 ICD-10: R05 Active 11/22/2015 Unknown Squamous cell carcinoma of skin of [...] ICD-9: 578.1 ICD-10: K92.1 Active 03/28/2015 Unknown Shortness of breath ICD- 9: 786.05 ICD-10: R06.02 Active 03/28/2015 Unknown Other lesions of oral mucosa ICD-9: 528.9 ICD-10: K13.79 Active 02/01/2015 Unknown Other seasonal allergic rhinitis ICD-9: 477.9 ICD-10: J30.2 Active 02/01/2015 Unknown Hyperlipidemia Unknown Active 09/22/2014 Unknown Hypertension Unknown Active 09/22/2014 Unknown ACTINIC KERATOSIS ICD-9: 702.0 Active 09/21/2014 Unknown ESSENTIAL HYPERTENSION ICD-9: 401.9 Active 09/21/2014 Unknown HYPERLIPIDEMIA ICD-9: 272.4 Active 09/21/2014 Unknown Problems Condition Codes Effective Dates Condition Status Acute bronchitis due to other specified organisms ICD-9: 466.0 ICD-10: J20.8 09/27/2016 Active Other allergic rhinitis ICD-9: 477.8 ICD-10: J30.89 09/27/2016 Active Chronic atrial fibrillation ICD-9: 427.31 ICD-10: I48.2 03/20/2016 Active Encounter for therapeutic drug level monitoring ICD-9: V58.83 ICD-10: Z51.81 03/20/2016 Active Essential (primary) hypertension ICD-9: 401.9 ICD-10: I10 09/21/2014 Active 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 ICD-10: K59.1 01/31/2016 Active Allergic rhinitis due to pollen ICD-9: 477.9 ICD-10: J30.1 11/22/2015 Active Cough ICD-9: 786.2 ICD-10: R05 11/22/2015 Active Squamous cell carcinoma of skin of [...] Melena ICD-9: 578.1 ICD-10: K92.1 03/28/2015 Active Shortness of breath ICD- 9: 786.05 ICD-10: R06.02 03/28/2015 Active Other lesions of oral mucosa ICD-9: 528.9 ICD-10: K13.79 02/01/2015 Active Other seasonal allergic rhinitis ICD-9: 477.9 ICD-10: J30.2 02/01/2015 Active Hyperlipidemia Unknown 09/22/2014 Active Hypertension Unknown 09/22/2014 Active ACTINIC KERATOSIS ICD-9: 702.0 09/21/2014 Active ESSENTIAL HYPERTENSION ICD-9: 401.9 09/21/2014 Active HYPERLIPIDEMIA ICD-9: 272.4 09/21/2014 Active Medications Medication Codes Instructions Start Date Stop Date Status Fill Instructions ceftriaxone 500 mg solution for injection RxNorm: 2185711 1 Milliliter(s) Inj 09/27/2016 09/27/2016 Inactive Phenergan with Codeine Syrup RxNorm: 5 Milliliter(s) PO QID as needed 09/27/2016 No Stop Date Active Tessalon Perles 100 mg capsule RxNorm: 219893 1-2 Capsule(s) PO TID as needed cough 09/27/2016 09/29/2016 Active Kenalog 40 mg/mL suspension for injection RxNorm: 0669896 1 Milliliter(s) Inj 09/27/2016 09/27/2016 Inactive Flagyl 500 mg tablet RxNorm: 515270 1 Tablet(s) PO TID 2016 08/05/2016 Inactive Lasix 40 mg tablet RxNorm: 429544 TAKE 1 TABLET DAILY 07/26/2016 No Stop Date Active Zithromax 250 mg tablet RxNorm: 226601 [address] day and 1 tab po on day 2-5 Tablet(s) PO 03/28/2016 03/27/2016 Inactive zpack x 1 Zithromax 250 mg tablet RxNorm: 213412 [address] day and 1 tab po on day 2-5 Tablet(s) PO 03/28/2016 04/01/2016 Inactive zpack x 1 Flagyl 500 mg tablet RxNorm: 480059 1 Tablet(s) PO TID 02/07/2016 02/06/2016 Inactive Flagyl 500 mg tablet RxNorm: 447632 1 Tablet(s) PO TID 02/07/2016 02/16/2016 Inactive Zyrtec-D 5 mg-120 mg tablet,extended release RxNorm: 8074364 1 Tablet(s) PO daily as needed allergies 11/23/2015 No Stop Date Active Imodium A-D 2 mg tablet RxNorm: 302165 1/2 Tablet(s) PO daily 11/23/2015 No Stop Date Active Mucinex 600 mg tablet, extended release RxNorm: 841276 1 Tablet(s) PO BID as needed 11/23/2015 01/21/2016 Inactive Klor-Con M20 mEq tablet,extended release RxNorm: 226360 TAKE 1 TABLET EVERY MORNING 11/01/2015 No Stop Date Active Lasix 40 mg tablet RxNorm: TAKE 1 TABLET DAILY 11/01/2015 07/25/2016 Inactive Flonase Allergy Relief 50 mcg/actuation nasal spray,suspension RxNorm: 2 [place] NASAL daily 07/20/2015 No Stop Date Active Kenalog 40 mg/mL suspension for injection RxNorm: 7081931 Milliliter(s) Inj 02/02/2015 02/02/2015 Inactive Crestor 5 mg tablet RxNorm: 687988 1/2 Tablet(s) PO daily 10/05/2014 09/29/2015 Inactive metoprolol tartrate 100 mg tablet RxNorm: 987460 1 Tablet(s) PO BID 10/05/2014 12/28/2015 Inactive Pradaxa 150 mg capsule RxNorm: 9888756 1 Capsule(s) PO BID 10/05/2014 09/29/2015 Inactive Plavix 75 mg tablet RxNorm: 426460 1 Tablet(s) PO daily 10/05/2014 03/07/2015 Inactive Klor-Con M20 mEq tablet,extended release RxNorm: 417139 1 Tablet(s) PO QAM 10/05/2014 10/31/2015 Inactive Lasix 40 mg tablet RxNorm: 1 Tablet(s) PO daily 10/05/2014 10/31/2015 Inactive Efudex 5 % topical cream RxNorm: 920354 1 Application TOP BID x 2 weeks, allow healing x 1 -2 weeks, then reuse 10/05/2014 07/05/2015 Inactive amlodipine 10 mg tablet RxNorm: 680169 1/2 Tablet(s) PO QAM 10/05/2014 07/05/2015 Inactive Efudex 5 % topical cream RxNorm: 915982 1 Application TOP BID x 2 weeks, allow healing x 1 -2 weeks, then reuse 09/22/2014 10/04/2014 Inactive Klor-Con M20 mEq tablet,extended release RxNorm: 960368 1 Tablet(s) PO QAM 09/22/2014 10/04/2014 Inactive Lasix 40 mg tablet RxNorm: 1 Tablet(s) PO daily 09/22/2014 10/04/2014 Inactive Cartia XT 180 mg capsule,extended release RxNorm: 523603 2 Capsule(s) PO daily No Start Date Active cetirizine 10 mg tablet RxNorm: 0425204 1 Tablet(s) PO daily at lunch No Start Date Active Centrum Silver oral RxNorm: 03375 oral No Start Date Active aspirin 81 mg capsule,delayed release RxNorm: 127575 1 Capsule(s) PO daily No Start Date Active losartan 25 mg tablet RxNorm: 733921 1 Tablet(s) PO QPM at supper No Start Date Active digoxin 250 mcg tablet RxNorm: 674183 1 Tablet(s) PO daily No Start Date Active Probiotic oral RxNorm: 6205 oral No Start Date Active Glucosamine Chondroit Complx Advan oral RxNorm: oral No Start Date Active Plavix 75 mg tablet RxNorm: 809637 1 Tablet(s) PO daily No Start Date 10/04/2014 Inactive Klor-Con M20 mEq tablet,extended release RxNorm: 617562 1 Tablet(s) PO QAM No Start Date 09/21/2014 Inactive Imodium oral RxNorm: oral No Start Date 11/22/2015 Inactive Lasix 40 mg tablet RxNorm: 566096 1 Tablet(s) PO daily No Start Date 09/21/2014 Inactive amlodipine 10 mg tablet RxNorm: 144571 1/2 Tablet(s) PO QAM No Start Date 10/04/2014 Inactive Crestor 5 mg tablet RxNorm: 463615 1/2 Tablet(s) PO daily No Start Date 10/04/2014 Inactive Flonase Allergy Relief 50 mcg/actuation nasal spray,suspension RxNorm: 1 [place] NASAL daily No Start Date 07/19/2015 Inactive metoprolol tartrate 100 mg tablet RxNorm: 864506 1 Tablet(s) PO BID No Start Date 10/04/2014 Inactive Probiotic 4X oral RxNorm: 9195787 oral No Start Date 07/06/2015 Inactive Pradaxa 150 mg capsule RxNorm: 4326348 1 Capsule(s) PO BID No Start Date 10/04/2014 Inactive Medication Administered Medication Codes Instructions Start Date Status Kenalog 40 mg/mL suspension for injection RxNorm: 0572000 1Milliliter 09/27/2016 Active ceftriaxone 500 mg solution for injection RxNorm: 7704192 1Milliliter 09/27/2016 Active Kenalog 40 mg/mL suspension for injection RxNorm: 7204412 Milliliter 02/02/2015 No longer Active Immunizations Vaccine Codes Date Status Influenza CVX: 141 01/07/2016 completed Influenza CVX: 141 12/01/2013 completed Zoster CVX: 121 04/02/2011 completed Pneumococcal CVX: 33 09/01/2007 completed Assessments Condition Codes Effective Dates Acute bronchitis due to other specified organisms ICD-10: J20.8 ICD-9: 466.0 09/27/2016 Other allergic rhinitis ICD-10: J30.89 ICD-9: 477.8 09/27/2016 Chronic atrial fibrillation ICD-10: I48.2 ICD-9: 427.31 03/21/2016 Essential (primary) hypertension ICD-10: I10 ICD-9: 401.9 03/21/2016 Encounter for therapeutic drug level monitoring ICD-10: Z51.81 ICD-9: V58.83 03/21/2016 Functional diarrhea ICD-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 ICD-9: 564.5 02/01/2016 Cough ICD-10: R05 ICD-9: 786.2 11/23/2015 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2 ICD-9: 477.9 02/02/2015 ACTINIC KERATOSIS ICD-9: 702.0 09/22/2014 ESSENTIAL HYPERTENSION ICD-9: 401.9 09/22/2014 HYPERLIPIDEMIA ICD-9: 272.4 09/22/2014 Reason For Visit Reason For Visit Effective Dates Notes cough 09/27/2016 hypertension 03/21/2016 diarrhea 02/01/2016 hypertension 11/23/2015 cough 10/14/2015 wound follow up 07/20/2015 he is here today to follow up cryotherapy areas to face and see if they need to be done again. hypertension 07/06/2015 Hospital Follow Up 03/29/2015 hypertension 03/08/2015 cough 02/02/2015 hypertension 09/22/2014 Results Observation Observation Code Item Item Code Result Date Comp Metabolic Uka549 NA 137 mEq/L 03/21/2016 Comp Metabolic Oll423 K 4.6 mEq/L 03/21/2016 Comp Metabolic Jzj102 CL 101 mEq/L 03/21/2016 Comp Metabolic Jxp122 CO2 31.0 mEq/L 03/21/2016 Comp Metabolic Qld885 ANION GAP 10 03/21/2016 Comp Metabolic Rpj023 GLUCOSE 106 mg/dL 03/21/2016 Comp Metabolic Csx162 Creat 1.1 mg/dL 03/21/2016 Comp Metabolic Lge482 eGFR 69 ml/min/1.73m2 03/21/2016 Comp Metabolic Vjb946 BUN 11 mg/dL 03/21/2016 Comp Metabolic Bve761 B/C Ratio 9.9 Ratio 03/21/2016 Comp Metabolic Kkf151 CALCIUM 9.5 mg/dL 03/21/2016 Comp Metabolic Iic783 ALK PHOS 88 U/L 03/21/2016 Comp Metabolic Gly261 AST(SGOT) 21 U/L 03/21/2016 Comp Metabolic Iud174 ALT(SGPT) 15 U/L 03/21/2016 Comp Metabolic Bvw548 BILI T 0.7 mg/dL 03/21/2016 Comp Metabolic Lzh906 ALBUMIN 4.2 g/dL 03/21/2016 Comp Metabolic Atf126 TPRO 7.9 g/dL 03/21/2016 Comp Metabolic Uhz235 GLOB 3.7 g/dL 03/21/2016 Comp Metabolic Jqr447 A/G Ratio 1.1 Ratio 03/21/2016 Comp Metabolic Jmf649 Osmo 274 mOsmo 03/21/2016 Lipid Ord30 CHOL [...] 14.6 g/dl 03/21/2016 Cbc With Differential Ord2 Neut% 62.9 % 03/21/2016 Cbc With Differential Ord2 HCT 43.4 % 03/21/2016 Cbc With Differential Ord2 Lymph% 20.9 % 03/21/2016 Cbc With Differential Ord2 MCV 92.9 fl 03/21/2016 Cbc With Differential Ord2 MCH 31.3 pg 03/21/2016 Cbc With Differential Ord2 Luce% 10.3 % 03/21/2016 Cbc With Differential Ord2 Eos% 5.7 % 03/21/2016 Cbc With Differential Ord2 MCHC 33.6 pg 03/21/2016 Cbc With Differential Ord2 Baso% 0.2 % 03/21/2016 Cbc With Differential Ord2 PLT 224 K/ul 03/21/2016 Cbc With Differential Ord2 RDW 13.9 % 03/21/2016 Cbc With Differential Ord2 Neut ABS# 7.57 K/ul 03/21/2016 Cbc With Differential Ord2 Lymph ABS# 2.51 K/ul 03/21/2016 Cbc With Differential Ord2 Luce ABS# 1.2 K/ul 03/21/2016 Cbc With Differential Ord2 Eos ABS# 0.7 K/ul 03/21/2016 Cbc With Differential Ord2 Baso ABS# 0.0 K/ul 03/21/2016 Clostridium Diff Tox A/B Ium317 Cdiff Negative 02/01/2016 Culture Mrsa [id number] MRSA CULTURE SEE NOTES 04/09/2015 Digoxin Ord9 [...] & Hct Ord65 HCT 39.4 % 03/30/2015 Digoxin Ord9 DIGOXIN 1.0 NG/ML 03/11/2015 Cbc With Differential Ord2 WBC 8.8 [...] With Differential Ord2 RDW 15.3 % 03/11/2015 Comp Metabolic Uxj597 NA 142 mEq/L 03/11/2015 Comp Metabolic Vlh247 K 4.4 mEq/L 03/11/2015 Comp Metabolic Laj068 CL 107 mEq/L 03/11/2015 Comp Metabolic Guc744 CO2 27.0 mEq/L 03/11/2015 Comp Metabolic Zkw789 ANION GAP 12 03/11/2015 Comp Metabolic Iqg811 GLUCOSE 106 mg/dL 03/11/2015 Comp Metabolic Zhk227 Creat 1.1 mg/dL 03/11/2015 Comp Metabolic Jpa436 eGFR 68 ml/min/1.73m2 03/11/2015 Comp Metabolic Vji286 BUN 16 mg/dL 03/11/2015 Comp Metabolic Njp211 B/C Ratio 14.3 Ratio 03/11/2015 Comp Metabolic Fyi537 CALCIUM 9.5 mg/dL 03/11/2015 Comp Metabolic Nsi347 ALK PHOS 82 U/L 03/11/2015 Comp Metabolic Ksm133 AST(SGOT) 20 U/L 03/11/2015 Comp Metabolic Llk505 ALT(SGPT) 17 U/L 03/11/2015 Comp Metabolic Nep267 BILI T 0.4 mg/dL 03/11/2015 Comp Metabolic Blj297 ALBUMIN 4.0 g/dL 03/11/2015 Comp Metabolic Aet599 TPRO 6.9 g/dL 03/11/2015 Comp Metabolic Jve204 GLOB 2.9 g/dL 03/11/2015 Comp Metabolic Frv562 A/G Ratio 1.4 Ratio 03/11/2015 Comp Metabolic Slz535 Osmo 285 mOsmo 03/11/2015 Tsh Ord6 hTSH II 2.39 uIU/mL 03/11/2015 Magnesium Ord90 Mag 2.2 mg/dL 03/11/2015 Metabolic Ord15 NA 137 mEq/L 12/24/2014 [...] System Result Effective Dates Constitutional recent illness 09/27/2016 Constitutional No chills [...] inspection of skin Location: face 03/21/2016 right yazidi, forehead, left yazidi - irrirated actinic keratosis Full Exam - [...] inspection of skin Location: face 11/23/2015 right yazidi, left yazidi - irrirated actinic keratosis Full Exam - [...] inspection of skin Location: face 07/06/2015 right yazidi, forehead, left yazidi - irrirated actinic keratosis Full Exam - [...] on face, scalp Procedures Procedure Codes Date ROCEPHIN, PER 250 MG CPT-4: Q3542Olmazuj 09/27/2016 TRIAMCINOLONE ACET INJ NOS CPT-4: H0327Mdcsxgp 09/27/2016 THER/PROPH/DIAG INJ SC/IM CPT-4: 47064Sjaogzd 09/27/2016 DESTRUCT PREMALG LESION CPT-4: 10214Dnyoyor 10/14/2015 DESTRUCT PREMALG LESION CPT-4: 59959Yqyptaa 07/20/2015 DESTRUCT PREMALG LESION CPT-4: 37225Eoagyxc 07/06/2015 DESTRUCT PREMALG LES 2-14 CPT-4: 20977Ixdhqte 07/06/2015 TRIAMCINOLONE ACET INJ NOS CPT-4: B5758Qpkmwby 02/02/2015 Vital Signs Date Vital 09/27/2016 Blood Pressure 1: 138/78 Code: 8480-6 BMI: 29.6 Code: 56927-9 Heart Rate 1: 68 bpm Height: 5'8" SpO2: 97% Weight: 195 lbs 03/21/2016 Blood Pressure 1: 148/82 Code: 8480-6 BMI: 30.6 Code: 62049-0 Heart Rate 1: 67 bpm Height: 5'8" SpO2: 98% Weight: 201 lbs 02/01/2016 Blood Pressure 1: 128/86 Code: 8480-6 BMI: 30.3 Code: 20140-5 Heart Rate 1: 84 bpm Height: 5'8" SpO2: 96% Weight: 199 lbs 11/23/2015 Blood Pressure 1: 132/76 Code: 8480-6 BMI: 30.4 Code: 36005-9 Heart Rate 1: 81 bpm Height: 5'8" SpO2: 98% Weight: 200 lbs 10/14/2015 Blood Pressure 1: 120/80 Code: 8480-6 BMI: 30.4 Code: 70867-5 Heart Rate 1: 87 bpm Height: 5'8" SpO2: 97% Weight: 200 lbs 07/20/2015 Blood Pressure 1: 132/84 Code: 8480-6 BMI: 31.0 Code: 18555-2 Heart Rate 1: 78 bpm Height: 5'8" SpO2: 96% Weight: 204 lbs 07/06/2015 Blood Pressure 1: 130/78 Code: 8480-6 BMI: 31.0 Code: 00217-1 Heart Rate 1: 80 bpm Height: 5'8" SpO2: 98% Weight: 204 lbs 03/29/2015 Blood Pressure 1: 132/82 Code: 8480-6 BMI: 29.6 Code: 09782-8 Heart Rate 1: 76 bpm Height: 5'8" SpO2: 96% Weight: 195 lbs 03/08/2015 Blood Pressure 1: 126/84 Code: 8480-6 BMI: 30.2 Code: 24295-0 Heart Rate 1: 101 bpm Height: 5'8" SpO2: 98% Weight: 198 lbs 8 oz 02/02/2015 Blood Pressure 1: 132/86 Code: 8480-6 Heart Rate 1: 86 bpm SpO2: 98% Temperature: 36.6 (C) / 97.8 (F) Weight: 198 lbs 09/22/2014 Blood Pressure 1: 128/80 Code: 8480-6 BMI: 29.3 Code: 96784-4 Heart Rate 1: 85 bpm Height: 5'8" SpO2: 98% Weight: 193 lbs Functional Status No Functional Status data History of Present Illness Symptom Name Status Result Effective Date Notes cough Location in the throat 09/27/2016 None [...] Date EST. PATIENT, LEVEL IV Diagnosis: Other allergic rhinitis[ICD10: J30.89] Diagnosis: Acute bronchitis due to other specified organisms[ICD10: J20.8] Sandra Parsons MD, [facility] CPT-4: 74388 09/27/2016 ([id number]) [id number] EST. PATIENT, LEVEL IV Diagnosis: Essential (primary) hypertension[ICD10: I10] Diagnosis: Chronic atrial fibrillation[ICD10: I48.2] Diagnosis: Encounter for therapeutic drug level monitoring[ICD10: Z51.81] Steffany Parsons MD, [facility] CPT-4: 59382 03/21/2016 ([id number]) 30061 EST. PATIENT, LEVEL III Diagnosis: Functional diarrhea[ICD10: K59.1] Lucrecia Parsons MD, [facility] CPT- 4: 49884 02/01/2016 ([id number]) 65071 EST. 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 PATIENT, LEVEL III Diagnosis: Allergic rhinitis due to pollen[ICD10: J30.1] Diagnosis: Actinic keratosis[ICD10: L57.0] Lucrecia Parsons MD, [facility] CPT-4: 33860 10/14/2015 ([id number]) 95822 EST. PATIENT, LEVEL IV Diagnosis: Essential (primary) hypertension[ICD10: I10] Diagnosis: Chronic atrial fibrillation[ICD10: I48.2] Steffany Parsons MD, [facility] CPT-4: 42620 07/06/2015 [id number] EST. PATIENT, LEVEL III Diagnosis: Essential (primary) hypertension[ICD10: I10] Diagnosis: Chronic atrial fibrillation[ICD10: I48.2] Diagnosis: Shortness of breath[ICD10: R06.02] Diagnosis: Melena[ICD10: K92.1] Sandra Parsons MD, [facility] CPT-4: 19560 03/29/2015 ([id number]) 98942 EST. PATIENT, LEVEL IV Diagnosis: Essential (primary) hypertension[ICD10: I10] Diagnosis: Chronic atrial fibrillation[ICD10: I48.2] Diagnosis: Cough[ICD10: R05] Steffany Parsons MD, [facility] CPT-4: 66554 03/08/2015 ([id number]) [id number] EST. PATIENT, LEVEL III Diagnosis: Other seasonal allergic rhinitis[ICD10: J30.2] Diagnosis: Other lesions of oral mucosa[ICD10: K13.79] Lucrecia Parsons MD, [facility] CPT-4: 84138 02/02/2015 ([id number]) OFFICE VISIT, NEW - LEVEL 4 Diagnosis: ESSENTIAL HYPERTENSION[ICD9: 401.9] Diagnosis: HYPERLIPIDEMIA[ICD9: 272.4] Diagnosis: ACTINIC KERATOSIS[ICD9: 702.0] Steffany Parsons MD, [facility] CPT-4: 95598 09/22/2014 Plan of Care Planned Activity Notes Codes Status Date Visit Plan: Allergies - chronic - recommended pt to use allergy medication as prescribed. Pt has been counseled as to the appropriate use of the medication. Pt to call if allergy symptoms are not controlled with the medication.If using nasal spray, instructions as follows: Nasal spray- use twice daily, one spray per nostril twice daily, after 30 minutes, rinse out nose with saline spray.. Use opposite hand per nostril to spray in the nasal steroid allergy spray.Bronchitis - acute case of bronchitis identified. Pt given rocephin IM and is to continue with his dental prophylactic abx as directed. Pt has been instructed to call if symptoms are not improved, or if symptoms acutely worsen. 09/27/2016 Patient Education: Patient Medication Summary Completed 09/27/2016 Visit Plan: Hypertension - well controlled - continue with current medications, continue with no added salt diet. Pt has been encouraged to exercise daily.The pt has been advised to call the office if there are any acute concerns about change in blood pressure readings at home.Atrial Fibrillation - pt on chronic anticoagulation and is currently rate controlled. The pt is to have labs done as appropriate to monitor medication levels and is to report if they start to feel as if their heart rate is becoming uncontrolled. 03/21/2016 Appointment: Steffany Parsons WPtel: [address] [place], [place] [phone] (15 min) Moderate 03/21/2016 Patient Education: Patient Medication Summary Completed 03/21/2016 Patient Education: Obesity Completed 03/21/2016 Visit Plan: Diarrhea-recent abx use-check stool for cdiff-increase probiotic to twice daily-bland diet advance as tolerated-call if symptoms do not resolve or if any worse. Patient verbalized understanding of plan. 02/01/2016 Appointment: Lucrecia Yeager WPtel: [address] [place], [place] [phone] (15 min) Moderate 02/01/2016 Patient Education: Patient Medication Summary Completed 02/01/2016 Patient Education: Obesity Completed 02/01/2016 Referral: Alexi Honeycutt [address] Info faxed Completed 11/27/2015 Visit Plan: Hypertension - well controlled - continue with current medications, continue with no added salt diet. Pt has been encouraged to exercise daily.The pt has been advised to call the office if there are any acute concerns about change in blood pressure readings at home.Allergies - chronic - recommended pt to use allergy medication as prescribed. Pt has been counseled as to the appropriate use of the medication. Pt to call if allergy symptoms are not controlled with the medication.If using nasal spray, instructions as follows: Nasal spray- use twice daily, one spray per nostril twice daily, after 30 minutes, rinse out nose with saline spray.. Use opposite hand per nostril to spray in the nasal steroid allergy spray.Referral to Dr. Honeycutt - the pt needs excision of the lesion on his ear 11/23/2015 Patient Education: Patient Medication Summary Completed 11/23/2015 Appointment: Steffany Parsons WPtel: [id number] (15 min) Moderate 11/15/2015 Visit Plan: Allergies - chronic - recommended pt to use allergy medication as prescribed. Pt has been counseled as to the appropriate use of the medication. Pt to call if allergy symptoms are not controlled with the medication.If using nasal spray, instructions as follows: Nasal spray- use twice daily, one spray per nostril twice daily, after 30 minutes, rinse out nose with saline spray.. Use opposite hand per nostril to spray in the nasal steroid allergy spray.Wound Instructions - Pt was instructed to keep the wound clean, wash with antibacterial soap, use triple antibiotic ointment, call if redness, pustular drainage, or any other acute concerns.Recommend referral to Dr Honeycutt if left ear lesion does not heal 10/14/2015 Appointment: Lucrecia Yeager WPtel: [phone] (15 min) Moderate 10/14/2015 Patient Education: Patient [...] acute concerns. 07/20/2015 Appointment: Lucrecia Yeager WPtel: [phone] (30 min) Complex 07/20/2015 Patient Education: Patient Medication Summary Completed 07/20/2015 Visit Plan: Hypertension - well controlled - continue with current medications, continue with no added salt diet. Pt has been encouraged to exercise daily.The pt has been advised to call the office if there are any acute concerns about change in blood pressure readings at home.Atrial Fibrillation - pt on chronic anticoagulation and is currently rate controlled. The pt is to have labs done as appropriate to monitor medication levels and is to report if they start to feel as if their heart rate is becoming uncontrolled.Wound Instructions - Pt was instructed to keep the wound clean, wash with antibacterial soap, use triple antibiotic ointment, call if redness, pustular drainage, or any other acute concerns. 07/06/2015 Appointment: Steffany Parsons WPtel: [facility] [place] (15 min) Moderate 07/06/2015 Patient Education: Patient Medication Summary Completed 07/06/2015 Patient Education: Obesity Completed 07/06/2015 Patient Education: Hypertension Completed 07/06/2015 Patient Education: Patient Medication Summary Completed 04/06/2015 Visit Plan: Hospital follow up - pt was in the hospital related to dyspnea and chest pain. Pt also has a follow up appointment with Dr. Avila and Dr. Veloz.Hypertension - well controlled - continue with current medications, continue with no added salt diet. Pt has been encouraged to exercise daily.The pt has been advised to call the office if there are any acute concerns about change in blood pressure readings at home.Atrial Fibrillation - pt on chronic anticoagulation and is currently rate controlled. The pt is to have labs done as appropriate to monitor medication levels and is to report if they start to feel as if their heart rate is becoming uncontrolled - pt has an upcoming appointment with retail product demo specialist to possibly have an ablation done. Bloody [...] diet. Pt has been encouraged to exercise daily.The pt has been advised to call the office if there are any acute concerns about change in blood pressure readings at home.Atrial Fibrillation -recommended pt to keep appt with Dr. Avila - 03/08/2015 Patient Education: Patient Medication Summary Completed 03/08/2015 Patient Education: Hypertension Completed 03/08/2015 [facility] [place] [place] Referral Completed 02/13/2015 Visit Plan: Allergies - chronic - recommended pt to use allergy medication as prescribed. Pt has been counseled as to the appropriate use of the medication. Pt to call if allergy symptoms are not controlled with the medication.If using nasal spray, instructions as follows: Nasal [...] 02/02/2015 Care Plan: Referral Order SNOMED-CT : [id number] Ordered 02/02/2015 Visit Plan: Hypertension - well controlled - continue with current medications, continue with no added salt diet. Pt has been encouraged to exercise daily.The pt has been advised to call the office if there are any acute concerns about change in blood pressure readings at home.Hyperlipidemia - pt has been counseled about appropriate [...] and to assure normal liver response to medications.Skin lesions - rx for effudex given to patient, to use on lesions, call if not improving. 09/22/2014 Appointment: Steffany Parsons WPtel: [address] [place], [place] [address] [place] (S) New Patient 09/22/2014 Patient Education: Patient Medication Summary Completed 09/22/2014 Patient Education: Hypertension Completed 09/22/2014 [facility] [place] [place] Referral Initiated Instructions Comment . Hypertension [...] - pt has an upcoming appointment with retail product demo specialist to possibly have an ablation done. Bloody [...] use on lesions, call if not improving. appt with Dr. Honeycutt in his clinic [...] of the lesion on his ear . Allergies - chronic - recommended pt [...] any worse. Patient verbalized understanding of plan. Kenalog injection today in the office-if your [...] Dr Honeycutt for evaluation and biopsy . Allergies - chronic - recommended pt [...]
--- OUTSIDE RECORDS SUMMARY | 2018-08-31 18:53 | XMS REPORT | CCD ---
Author Author Steffany Parsons Organization [facility] Address [address] [place] [address] Phone Care Team Providers Care Underwriting Clerk Name Role Phone PP Unavailable CCM Unavailable Summary Purpose Interface Exchange Insurance Providers Payer name Policy type / Coverage type Covered alliance party ID Effective Begin Date Effective End Date [facility] Commercial Insurance [id number] Unknown Unknown Family history Runs in the family Diagnosis Age At Onset Hypertension Unknown Social History Social History Element Codes Description Effective Dates Marital status Unknown joe 09/22/2014 Number of children Unknown 5 09/22/[address]: 8524941 Quit over 10 years ago 09/22/[address]: 087487689 Never drinks alcohol 09/22/2014 Allergies, Adverse Reactions, [...] ceftriaxone 500 mg solution for injection RxNorm: 4349620 1 Milliliter(s) Inj 09/27/2016 09/27/2016 Inactive Phenergan with Codeine Syrup RxNorm: 5 Milliliter(s) PO QID as needed 09/27/2016 No Stop Date Active Tessalon Perles 100 mg capsule RxNorm: 652853 1-2 Capsule(s) PO TID as needed cough 09/27/2016 09/29/2016 Active Kenalog 40 mg/mL suspension for injection RxNorm: 9475600 1 Milliliter(s) Inj 09/27/2016 09/27/2016 Inactive Flagyl 500 mg tablet RxNorm: 527984 1 Tablet(s) PO TID 2016 08/05/2016 Inactive Lasix 40 mg tablet RxNorm: 565537 TAKE 1 TABLET DAILY 07/26/2016 No Stop Date Active Zithromax 250 mg tablet RxNorm: 977030 [address] day and 1 tab po on day 2-5 Tablet(s) PO 03/28/2016 03/27/2016 Inactive zpack x 1 Zithromax 250 mg tablet RxNorm: 700640 [address] day and 1 tab po on day 2-5 Tablet(s) PO 03/28/2016 04/01/2016 Inactive zpack x 1 Flagyl 500 mg tablet RxNorm: 525319 1 Tablet(s) PO TID 02/07/2016 02/06/2016 Inactive Flagyl 500 mg tablet RxNorm: 122360 1 Tablet(s) PO TID 02/07/2016 02/16/2016 Inactive Zyrtec-D 5 mg-120 mg tablet,extended release RxNorm: 8687127 1 Tablet(s) PO daily as needed allergies 11/23/2015 No Stop Date Active Imodium A-D 2 mg tablet RxNorm: 514792 1/2 Tablet(s) PO daily 11/23/2015 No Stop Date Active Mucinex 600 mg tablet, extended release RxNorm: 453199 1 Tablet(s) PO BID as needed 11/23/2015 01/21/2016 Inactive Klor-Con M20 mEq tablet,extended release RxNorm: 577327 TAKE 1 TABLET EVERY MORNING 11/01/2015 No Stop Date Active Lasix 40 mg tablet RxNorm: TAKE 1 TABLET DAILY 11/01/2015 07/25/2016 Inactive Flonase Allergy Relief 50 mcg/actuation nasal spray,suspension RxNorm: 2 Cecil NASAL daily 07/20/2015 No Stop Date Active Kenalog 40 mg/mL suspension for injection RxNorm: 0315938 Milliliter(s) Inj 02/02/2015 02/02/2015 Inactive Crestor 5 mg tablet RxNorm: 455157 1/2 Tablet(s) PO daily 10/05/2014 09/29/2015 Inactive metoprolol tartrate 100 mg tablet RxNorm: 664150 1 Tablet(s) PO BID 10/05/2014 12/28/2015 Inactive Pradaxa 150 mg capsule RxNorm: 2414663 1 Capsule(s) PO BID 10/05/2014 09/29/2015 Inactive Plavix 75 mg tablet RxNorm: 146105 1 Tablet(s) PO daily 10/05/2014 03/07/2015 Inactive Klor-Con M20 mEq tablet,extended release RxNorm: 930709 1 Tablet(s) PO QAM 10/05/2014 10/31/2015 Inactive Lasix 40 mg tablet RxNorm: 1 Tablet(s) PO daily 10/05/2014 10/31/2015 Inactive Efudex 5 % topical cream RxNorm: 997835 1 Application TOP BID x 2 weeks, allow healing x 1 -2 weeks, then reuse 10/05/2014 07/05/2015 Inactive amlodipine 10 mg tablet RxNorm: 503538 1/2 Tablet(s) PO QAM 10/05/2014 07/05/2015 Inactive Efudex 5 % topical cream RxNorm: 195508 1 Application TOP BID x 2 weeks, allow healing x 1 -2 weeks, then reuse 09/22/2014 10/04/2014 Inactive Klor-Con M20 mEq tablet,extended release RxNorm: 110854 1 Tablet(s) PO QAM 09/22/2014 10/04/2014 Inactive Lasix 40 mg tablet RxNorm: 1 Tablet(s) PO daily 09/22/2014 10/04/2014 Inactive Cartia XT 180 mg capsule,extended release RxNorm: 729334 2 Capsule(s) PO daily No Start Date Active cetirizine 10 mg tablet RxNorm: 3068323 1 Tablet(s) PO daily at lunch No Start Date Active Centrum Silver oral RxNorm: 00982 oral No Start Date Active aspirin 81 mg capsule,delayed release RxNorm: 420648 1 Capsule(s) PO daily No Start Date Active losartan 25 mg tablet RxNorm: 536204 1 Tablet(s) PO QPM at supper No Start Date Active digoxin 250 mcg tablet RxNorm: 480138 1 Tablet(s) PO daily No Start Date Active Probiotic oral RxNorm: 6205 oral No Start Date Active Glucosamine Chondroit Complx Advan oral RxNorm: oral No Start Date Active Plavix 75 mg tablet RxNorm: 726246 1 Tablet(s) PO daily No Start Date 10/04/2014 Inactive Klor-Con M20 mEq tablet,extended release RxNorm: 094623 1 Tablet(s) PO QAM No Start Date 09/21/2014 Inactive Imodium oral RxNorm: oral No Start Date 11/22/2015 Inactive Lasix 40 mg tablet RxNorm: 050002 1 Tablet(s) PO daily No Start Date 09/21/2014 Inactive amlodipine 10 mg tablet RxNorm: 032207 1/2 Tablet(s) PO QAM No Start Date 10/04/2014 Inactive Crestor 5 mg tablet RxNorm: 698129 1/2 Tablet(s) PO daily No Start Date 10/04/2014 Inactive Flonase Allergy Relief 50 mcg/actuation nasal spray,suspension RxNorm: 1 Cecil NASAL daily No Start Date 07/19/2015 Inactive metoprolol tartrate 100 mg tablet RxNorm: 304690 1 Tablet(s) PO BID No Start Date 10/04/2014 Inactive Probiotic 4X oral RxNorm: 2468164 oral No Start Date 07/06/2015 Inactive Pradaxa 150 mg capsule RxNorm: 7556582 1 Capsule(s) PO BID No Start Date 10/04/2014 Inactive Medication Administered Medication Codes Instructions Start Date Status Kenalog 40 mg/mL suspension for injection RxNorm: 9677737 1Milliliter 09/27/2016 Active ceftriaxone 500 mg solution for injection RxNorm: 4633465 1Milliliter 09/27/2016 Active Kenalog 40 mg/mL suspension for injection RxNorm: 7350744 Milliliter 02/02/2015 No longer Active Immunizations Vaccine [...] Item Item Code Result Date Comp Metabolic Wdg166 NA 137 mEq/L 03/21/2016 Comp Metabolic Ilh796 K 4.6 mEq/L 03/21/2016 Comp Metabolic Zge884 CL 101 mEq/L 03/21/2016 Comp Metabolic Kbh009 CO2 31.0 mEq/L 03/21/2016 Comp Metabolic Ztp427 ANION GAP 10 03/21/2016 Comp Metabolic Sru334 GLUCOSE 106 mg/dL 03/21/2016 Comp Metabolic Mxy497 Creat 1.1 mg/dL 03/21/2016 Comp Metabolic Syl990 eGFR 69 ml/min/1.73m2 03/21/2016 Comp Metabolic Zey901 BUN 11 mg/dL 03/21/2016 Comp Metabolic Chw496 B/C Ratio 9.9 Ratio 03/21/2016 Comp Metabolic Mrn774 CALCIUM 9.5 mg/dL 03/21/2016 Comp Metabolic Tfg912 ALK PHOS 88 U/L 03/21/2016 Comp Metabolic Pbr000 AST(SGOT) 21 U/L 03/21/2016 Comp Metabolic Dvo045 ALT(SGPT) 15 U/L 03/21/2016 Comp Metabolic Eav052 BILI T 0.7 mg/dL 03/21/2016 Comp Metabolic Jxd980 ALBUMIN 4.2 g/dL 03/21/2016 Comp Metabolic Xjh722 TPRO 7.9 g/dL 03/21/2016 Comp Metabolic Uts013 GLOB 3.7 g/dL 03/21/2016 Comp Metabolic Ich043 A/G Ratio 1.1 Ratio 03/21/2016 Comp Metabolic Dwp210 Osmo 274 mOsmo 03/21/2016 Lipid Ord30 CHOL [...] 31.3 pg 03/21/2016 Cbc With Differential Ord2 [place]% 10.3 % 03/21/2016 Cbc With Differential Ord2 [...] 2.51 K/ul 03/21/2016 Cbc With Differential Ord2 [place] ABS# 1.2 K/ul 03/21/2016 Cbc With Differential Ord2 Eos ABS# 0.7 K/ul 03/21/2016 Cbc With Differential Ord2 Baso ABS# 0.0 K/ul 03/21/2016 Clostridium Diff Tox A/B Afv670 Cdiff Negative 02/01/2016 Culture Mrsa [id number] MRSA CULTURE SEE NOTES 04/09/2015 Digoxin Ord9 [...] Ord2 RDW 15.3 % 03/11/2015 Comp Metabolic Gxh587 NA 142 mEq/L 03/11/2015 Comp Metabolic Gla638 K 4.4 mEq/L 03/11/2015 Comp Metabolic Mka397 CL 107 mEq/L 03/11/2015 Comp Metabolic Njc317 CO2 27.0 mEq/L 03/11/2015 Comp Metabolic Msv539 ANION GAP 12 03/11/2015 Comp Metabolic Jww773 GLUCOSE 106 mg/dL 03/11/2015 Comp Metabolic Alb536 Creat 1.1 mg/dL 03/11/2015 Comp Metabolic Gxg598 eGFR 68 ml/min/1.73m2 03/11/2015 Comp Metabolic Knr001 BUN 16 mg/dL 03/11/2015 Comp Metabolic Mdi332 B/C Ratio 14.3 Ratio 03/11/2015 Comp Metabolic Mwn229 CALCIUM 9.5 mg/dL 03/11/2015 Comp Metabolic Our562 ALK PHOS 82 U/L 03/11/2015 Comp Metabolic Fpc255 AST(SGOT) 20 U/L 03/11/2015 Comp Metabolic Umk817 ALT(SGPT) 17 U/L 03/11/2015 Comp Metabolic Mzr197 BILI T 0.4 mg/dL 03/11/2015 Comp Metabolic Djt521 ALBUMIN 4.0 g/dL 03/11/2015 Comp Metabolic Vom245 TPRO 6.9 g/dL 03/11/2015 Comp Metabolic Jfk668 GLOB 2.9 g/dL 03/11/2015 Comp Metabolic Uak878 A/G Ratio 1.4 Ratio 03/11/2015 Comp Metabolic Fus448 Osmo 285 mOsmo 03/11/2015 Tsh Ord6 hTSH [...] inspection of skin Location: face 03/21/2016 right mandaen, forehead, left mandaen - irrirated actinic keratosis Full Exam - [...] inspection of skin Location: face 11/23/2015 right mandaen, left mandaen - irrirated actinic keratosis Full Exam - [...] inspection of skin Location: face 07/06/2015 right mandaen, forehead, left mandaen - irrirated actinic keratosis Full Exam - [...] Codes Date ROCEPHIN, PER 250 MG CPT-4: G5260Fxzfayx 09/27/2016 TRIAMCINOLONE ACET INJ NOS CPT-4: J9322Hxkhkpc 09/27/2016 THER/PROPH/DIAG INJ SC/IM CPT-4: 78129Iocwlcr 09/27/2016 DESTRUCT PREMALG LESION CPT-4: 50292Dbvuztx 10/14/2015 DESTRUCT PREMALG LESION CPT-4: 22437Qorzsiq 07/20/2015 DESTRUCT PREMALG LESION CPT-4: 87181Bnjwdgp 07/06/2015 DESTRUCT PREMALG LES 2-14 CPT-4: 21895Ctzfoxd 07/06/2015 TRIAMCINOLONE ACET INJ NOS CPT-4: B9854Eyqrxtp 02/02/2015 Vital Signs Date Vital 09/27/2016 Blood Pressure 1: 138/78 Code: 8480-6 BMI: 29.6 Code: 78555-7 Heart Rate 1: 68 bpm Height: 5'8" SpO2: 97% Weight: 195 lbs 03/21/2016 Blood Pressure 1: 148/82 Code: 8480-6 BMI: 30.6 Code: 65349-7 Heart Rate 1: 67 bpm Height: 5'8" SpO2: 98% Weight: 201 lbs 02/01/2016 Blood Pressure 1: 128/86 Code: 8480-6 BMI: 30.3 Code: 75290-3 Heart Rate 1: 84 bpm Height: 5'8" SpO2: 96% Weight: 199 lbs 11/23/2015 Blood Pressure 1: 132/76 Code: 8480-6 BMI: 30.4 Code: 03463-2 Heart Rate 1: 81 bpm Height: 5'8" SpO2: 98% Weight: 200 lbs 10/14/2015 Blood Pressure 1: 120/80 Code: 8480-6 BMI: 30.4 Code: 50696-3 Heart Rate 1: 87 bpm Height: 5'8" SpO2: 97% Weight: 200 lbs 07/20/2015 Blood Pressure 1: 132/84 Code: 8480-6 BMI: 31.0 Code: 45938-9 Heart Rate 1: 78 bpm Height: 5'8" SpO2: 96% Weight: 204 lbs 07/06/2015 Blood Pressure 1: 130/78 Code: 8480-6 BMI: 31.0 Code: 95685-1 Heart Rate 1: 80 bpm Height: 5'8" SpO2: 98% Weight: 204 lbs 03/29/2015 Blood Pressure 1: 132/82 Code: 8480-6 BMI: 29.6 Code: 49470-2 Heart Rate 1: 76 bpm Height: 5'8" SpO2: 96% Weight: 195 lbs 03/08/2015 Blood Pressure 1: 126/84 Code: 8480-6 BMI: 30.2 Code: 72119-5 Heart Rate 1: 101 bpm Height: 5'8" SpO2: 98% Weight: 198 lbs 8 oz 02/02/2015 Blood Pressure 1: 132/86 Code: 8480-6 Heart Rate 1: 86 bpm SpO2: 98% Temperature: 36.6 (C) / 97.8 (F) Weight: 198 lbs 09/22/2014 Blood Pressure 1: 128/80 Code: 8480-6 BMI: 29.3 Code: 41713-6 Heart Rate 1: 85 bpm Height: 5'8" [...] other specified organisms[ICD10: J20.8] Sandra Parsons MD, [facility] CPT-4: 55485 09/27/2016 ([id number]) 95211 EST. PATIENT, LEVEL IV Diagnosis: Essential (primary) hypertension[ICD10: I10] Diagnosis: Chronic atrial fibrillation[ICD10: I48.2] Diagnosis: Encounter for therapeutic drug level monitoring[ICD10: Z51.81] Steffany Parsons MD, [facility] CPT-4: 84914 03/21/2016 ([id number]) 03456 EST. 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 PATIENT, LEVEL III Diagnosis: Allergic rhinitis due to pollen[ICD10: J30.1] Diagnosis: Actinic keratosis[ICD10: L57.0] Lucrecia Parsons MD, [facility] CPT-4: 71315 10/14/2015 ([id number]) 68270 EST. PATIENT, LEVEL IV Diagnosis: Essential (primary) hypertension[ICD10: I10] Diagnosis: Chronic atrial fibrillation[ICD10: I48.2] Steffany Parsons MD, [facility] CPT-4: 48348 07/06/2015 81042 EST. PATIENT, LEVEL III Diagnosis: Essential (primary) hypertension[ICD10: I10] Diagnosis: Chronic atrial fibrillation[ICD10: I48.2] Diagnosis: Shortness of breath[ICD10: R06.02] Diagnosis: Melena[ICD10: K92.1] Sandra Parsons MD, [facility] CPT-4: 94240 03/29/2015 ([id number]) 06029 EST. PATIENT, LEVEL IV Diagnosis: Essential (primary) hypertension[ICD10: I10] Diagnosis: Chronic atrial fibrillation[ICD10: I48.2] Diagnosis: Cough[ICD10: R05] Steffany Parsons MD, [facility] CPT-4: 15878 03/08/2015 ([id number]) 09443 EST. PATIENT, LEVEL III Diagnosis: Other seasonal allergic rhinitis[ICD10: J30.2] Diagnosis: Other lesions of oral mucosa[ICD10: K13.79] Lucrecia Parsons MD, [facility] CPT-4: 12411 02/02/2015 ([id number]) OFFICE VISIT, NEW - LEVEL 4 Diagnosis: ESSENTIAL HYPERTENSION[ICD9: 401.9] Diagnosis: HYPERLIPIDEMIA[ICD9: 272.4] Diagnosis: ACTINIC KERATOSIS[ICD9: 702.0] Steffany Parsons MD, [facility] CPT-4: 64842 09/22/2014 Plan of Care Planned Activity Notes [...] becoming uncontrolled. 03/21/2016 Appointment: Steffany Parsons WPtel: [address] [place], [place] [id number] (15 min) Moderate 03/21/2016 Patient Education: Patient Medication Summary Completed 03/21/2016 Patient Education: Obesity Completed 03/21/2016 Visit Plan: Diarrhea-recent abx use-check stool for cdiff-increase probiotic to twice daily-bland diet advance as tolerated-call if symptoms do not resolve or if any worse. Patient verbalized understanding of plan. 02/01/2016 Appointment: Lucrecia Yeager WPtel: [address] [place], [place] [phone] (15 min) Moderate 02/01/2016 Patient Education: Patient Medication Summary Completed 02/01/2016 Patient Education: Obesity Completed 02/01/2016 Referral: Alexi Honeycutt [address] Info faxed Completed 11/27/2015 Visit Plan: [...] Summary Completed 11/23/2015 Appointment: Steffany Parsons WPtel: [facility] (15 min) Moderate 11/15/2015 Visit [...] not heal 10/14/2015 Appointment: Lucrecia Yeager WPtel: [facility]6 [phone] (15 min) Moderate 10/14/2015 Patient Education: Patient [...] acute concerns. 07/20/2015 Appointment: Lucrecia Yeager WPtel: [phone] (30 min) Complex 07/20/2015 Patient Education: Patient [...] acute concerns. 07/06/2015 Appointment: Steffany Parsons WPtel: [facility] (15 min) Moderate 07/06/2015 Patient Education: Patient [...] - pt has an upcoming appointment with [facility] to possibly have an ablation done. Bloody [...] Patient Education: Hypertension Completed 03/08/2015 [facility] [place] Ref[facility] Completed 02/13/2015 Visit Plan: Allergies [...] 02/02/2015 Care Plan: Referral Order SNOMED-CT : [id number] Ordered 02/02/2015 Visit Plan: Hypertension - well [...] not improving. 09/22/2014 Appointment: Steffany Parsons WPtel: [address] [place], [place] [address] [place] ([place]) New Patient 09/22/2014 Patient Education: Patient Medication Summary Completed 09/22/2014 Patient Education: Hypertension Completed 09/22/2014 [facility] [place] Referral Initiated Instructions Comment . [...] - pt has an upcoming appointment with [facility] to possibly have an ablation done. Bloody [...]
--- OUTSIDE RECORDS SUMMARY | 2018-08-31 18:56 | XMS REPORT | CCD ---
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 Name Role Phone PP Unavailable CCM Unavailable Summary Purpose Interface Exchange Insurance Providers Payer name Policy type / Coverage type Covered constitution party ID Effective Begin Date Effective End Date [facility] Commercial Insurance [id number] Unknown Unknown Family history Father Diagnosis Age At Onset Prostate Cancer Unknown Runs in the family Diagnosis Age At Onset Hypertension Unknown Mother Diagnosis Age At Onset No Family Disease Entered N/A Social History Social History Element Codes Description Effective Dates Marital status Unknown Mary 02/06/2017 Number of children Unknown 5 09/22/[address]: 2927384 Quit over 10 years ago 09/22/[address]: 768627636 Never drinks alcohol 09/22/2014 Allergies, Adverse Reactions, [...] Instructions doxycycline hyclate 100 mg capsule RxNorm: 0223922 1 Capsule(s) PO BID 07/08/2018 07/17/2018 Active ciprofloxacin 0.3 % eye drops RxNorm: 544718 2 Drop(s) ophthalmic (eye) Q2H while awake x 2 days then Q4H x 5 days 07/08/2018 No Stop Date Active Kenalog 40 mg/mL suspension for injection RxNorm: 8390775 1 Milliliter(s) Inj 07/08/2018 07/08/2018 Inactive Keflex 500 mg capsule RxNorm: 365323 1 Capsule(s) PO TID 07/02/2018 07/08/2018 Inactive dapsone 100 mg tablet RxNorm: 105556 1 Tablet(s) PO daily 06/04/2018 06/10/2018 Inactive doxycycline hyclate 100 mg capsule RxNorm: 7059802 1 Capsule(s) PO BID 06/04/2018 06/13/2018 Inactive Lasix 40 mg tablet RxNorm: 135673 TAKE 1 TABLET DAILY 04/22/2018 No Stop Date Active prednisone 20 mg tablet RxNorm: 731194 2 Tablet(s) PO daily 02/28/2018 03/04/2018 Inactive START TOMORROW Keflex 500 mg capsule RxNorm: 964507 1 Capsule(s) PO TID 02/28/2018 03/09/2018 Inactive ceftriaxone 500 mg solution for injection RxNorm: 5690600 Inj 02/28/2018 02/28/2018 Inactive Kenalog 40 mg/mL suspension for injection RxNorm: 3961459 Milliliter(s) Inj 02/26/2018 02/26/2018 Inactive Keflex 500 mg capsule RxNorm: 348190 1 Capsule(s) PO TID 02/19/2018 02/25/2018 Inactive Klor-Con M20 mEq tablet,extended release RxNorm: 5873096 TAKE 1 TABLET EVERY MORNING 12/04/2017 No Stop Date Active prednisone 20 mg tablet RxNorm: 645298 2 Tablet(s) PO daily 11/16/2017 11/20/2017 Inactive START TOMORROW Zithromax Z-Mau 250 mg tablet RxNorm: 445381 1 Tablet(s) PO daily 11/16/2017 11/20/2017 Inactive Zithromax Z-Mau 250 mg tablet RxNorm: 649533 1 Tablet(s) PO daily 11/16/2017 11/15/2017 Inactive Keflex 500 mg capsule RxNorm: 777326 1 Capsule(s) PO TID 11/09/2017 11/15/2017 Inactive Zithromax 250 mg tablet RxNorm: 510907 [address] day and 1 tab po on day 2-5 Tablet(s) PO 08/30/2017 09/03/2017 Inactive zpack x 1 doxycycline hyclate 100 mg tablet RxNorm: 095515 1 Tablet(s) PO BID 07/09/2017 07/15/2017 Inactive prednisone 20 mg tablet RxNorm: 911860 2 Tablet(s) PO daily 06/29/2017 07/01/2017 Inactive START TOMORROW Kenalog 40 mg/mL suspension for injection RxNorm: 9370126 Milliliter(s) Inj 06/29/2017 06/29/2017 Inactive Lasix 40 mg tablet RxNorm: 963234 TAKE 1 TABLET DAILY 04/24/2017 04/21/2018 Inactive Diflucan 150 mg tablet RxNorm: 781910 1 Tablet(s) PO daily 04/10/2017 04/16/2017 Inactive Bactrim DS 800 mg-160 mg tablet RxNorm: 891448 1 Tablet(s) PO BID 04/10/2017 04/16/2017 Inactive nystatin 100,000 unit/mL oral suspension RxNorm: 554540 5 Milliliter(s) PO QID 04/10/2017 04/19/2017 Inactive cefdinir 300 mg capsule RxNorm: 369049 1 Capsule(s) PO BID 03/28/2017 04/06/2017 Inactive cefdinir 300 mg capsule RxNorm: 278816 1 Capsule(s) PO BID 02/06/2017 02/15/2017 Inactive ceftriaxone 500 mg solution for injection RxNorm: 5643099 Inj 02/06/2017 02/06/2017 Inactive omeprazole 20 mg tablet,delayed release RxNorm: 040652 1 Tablet(s) PO daily 11/06/2016 12/05/2016 Inactive Phenergan with Codeine Syrup RxNorm: 5 Milliliter(s) PO QID as needed 10/30/2016 No Stop Date Active Tessalon Perles 100 mg capsule RxNorm: 245733 1-2 Capsule(s) PO TID as needed cough 10/30/2016 11/08/2016 Inactive Klor-Con M20 mEq tablet,extended release RxNorm: 2818050 TAKE 1 TABLET EVERY MORNING 10/26/2016 12/03/2017 Inactive ceftriaxone 500 mg solution for injection RxNorm: 8608531 1 Milliliter(s) Inj 09/27/2016 09/27/2016 Inactive Phenergan with Codeine Syrup RxNorm: 5 Milliliter(s) PO QID as needed 09/27/2016 10/29/2016 Inactive Tessalon Perles 100 mg capsule RxNorm: 728660 1-2 Capsule(s) PO TID as needed cough 09/27/2016 09/29/2016 Inactive Kenalog 40 mg/mL suspension for injection RxNorm: 3895403 1 Milliliter(s) Inj 09/27/2016 09/27/2016 Inactive Flagyl 500 mg tablet RxNorm: 763788 1 Tablet(s) PO TID 2016 08/05/2016 Inactive Lasix 40 mg tablet RxNorm: 883102 TAKE 1 TABLET DAILY 07/26/2016 04/23/2017 Inactive Zithromax 250 mg tablet RxNorm: 197412 [address] day and 1 tab po on day 2-5 Tablet(s) PO 03/28/2016 03/27/2016 Inactive zpack x 1 Zithromax 250 mg tablet RxNorm: 919414 [address] day and 1 tab po on day 2-5 Tablet(s) PO 03/28/2016 04/01/2016 Inactive zpack x 1 Flagyl 500 mg tablet RxNorm: 852128 1 Tablet(s) PO TID 02/07/2016 02/06/2016 Inactive Flagyl 500 mg tablet RxNorm: 740086 1 Tablet(s) PO TID 02/07/2016 02/16/2016 Inactive Zyrtec-D 5 mg-120 mg tablet,extended release RxNorm: 1060870 1 Tablet(s) PO daily as needed allergies 11/23/2015 No Stop Date Active Imodium A-D 2 mg tablet RxNorm: 891844 1/2 Tablet(s) PO daily 11/23/2015 No Stop Date Active Mucinex 600 mg tablet, extended release RxNorm: 111490 1 Tablet(s) PO BID as needed 11/23/2015 01/21/2016 Inactive Lasix 40 mg tablet RxNorm: 927696 TAKE 1 TABLET DAILY 11/01/2015 07/25/2016 Inactive Klor-Con M20 mEq tablet,extended release RxNorm: 8391556 TAKE 1 TABLET EVERY MORNING 11/01/2015 10/25/2016 Inactive Flonase Allergy Relief 50 mcg/actuation nasal spray,suspension RxNorm: 2 [place] NASAL daily 07/20/2015 No Stop Date Active Kenalog 40 mg/mL suspension for injection RxNorm: 1407763 Milliliter(s) Inj 02/02/2015 02/02/2015 Inactive Crestor 5 mg tablet RxNorm: 108221 1/2 Tablet(s) PO daily 10/05/2014 09/29/2015 Inactive metoprolol tartrate 100 mg tablet RxNorm: 224393 1 Tablet(s) PO BID 10/05/2014 12/28/2015 Inactive Plavix 75 mg tablet RxNorm: 563008 1 Tablet(s) PO daily 10/05/2014 03/07/2015 Inactive Klor-Con M20 mEq tablet,extended release RxNorm: 557058 1 Tablet(s) PO QAM 10/05/2014 10/31/2015 Inactive Lasix 40 mg tablet RxNorm: 935976 1 Tablet(s) PO daily 10/05/2014 10/31/2015 Inactive Efudex 5 % topical cream RxNorm: 419723 1 Application TOP BID x 2 weeks, allow healing x 1 -2 weeks, then reuse 10/05/2014 07/05/2015 Inactive Pradaxa 150 mg capsule RxNorm: 4835551 1 Capsule(s) PO BID 10/05/2014 04/09/2017 Inactive amlodipine 10 mg tablet RxNorm: 500086 1/2 Tablet(s) PO QAM 10/05/2014 07/05/2015 Inactive Efudex 5 % topical cream RxNorm: 269135 1 Application TOP BID x 2 weeks, allow healing x 1 -2 weeks, then reuse 09/22/2014 10/04/2014 Inactive Klor-Con M20 mEq tablet,extended release RxNorm: 758007 1 Tablet(s) PO QAM 09/22/2014 10/04/2014 Inactive Lasix 40 mg tablet RxNorm: 408308 1 Tablet(s) PO daily 09/22/2014 10/04/2014 Inactive Cartia XT 180 mg capsule,extended release RxNorm: 056545 2 Capsule(s) PO daily No Start Date Active cetirizine 10 mg tablet RxNorm: 8045509 1 Tablet(s) PO daily at lunch No Start Date Active Canasa 1,000 mg rectal suppository RxNorm: 271959 [address] QHS [address] seymour No Start Date Active Lialda 1.2 gram tablet,delayed release RxNorm: 770462 1 Tablet(s) PO QHS -Prescried by Dr. Seymour No Start Date Active Centrum Silver oral RxNorm: 68024 oral No Start Date Active Eliquis 5 mg tablet RxNorm: 1272218 1 Tablet(s) PO BID Dr Avila No Start Date Active aspirin 81 mg capsule,delayed release RxNorm: 728084 1 Capsule(s) PO daily No Start Date Active losartan 25 mg tablet RxNorm: 783052 1 Tablet(s) PO QPM at supper No Start Date Active digoxin 250 mcg tablet RxNorm: 558324 1 Tablet(s) PO daily No Start Date Active Vitamin D3 5,000 unit tablet RxNorm: 246494 1 Tablet(s) PO BID No Start Date Active Probiotic oral RxNorm: 6205 oral No Start Date Active Glucosamine Chondroit Complx Advan oral RxNorm: oral No Start Date Active Plavix 75 mg tablet RxNorm: 220824 1 Tablet(s) PO daily No Start Date 10/04/2014 Inactive Klor-Con M20 mEq tablet,extended release RxNorm: 656380 1 Tablet(s) PO QAM No Start Date 09/21/2014 Inactive Imodium oral RxNorm: oral No Start Date 11/22/2015 Inactive Lasix 40 mg tablet RxNorm: 539110 1 Tablet(s) PO daily No Start Date 09/21/2014 Inactive amlodipine 10 mg tablet RxNorm: 373635 1/2 Tablet(s) PO QAM No Start Date 10/04/2014 Inactive Crestor 5 mg tablet RxNorm: 989741 1/2 Tablet(s) PO daily No Start Date 10/04/2014 Inactive Flonase Allergy Relief 50 mcg/actuation nasal spray,suspension RxNorm: 1 [place] NASAL daily No Start Date 07/19/2015 Inactive metoprolol tartrate 100 mg tablet RxNorm: 960336 1 Tablet(s) PO BID No Start Date 10/04/2014 Inactive Probiotic 4X oral RxNorm: 3451110 oral No Start Date 07/06/2015 Inactive Pradaxa 150 mg capsule RxNorm: 2769270 1 Capsule(s) PO BID No Start Date 10/04/2014 Inactive Medication Administered Medication Codes Instructions Start Date Status Kenalog 40 mg/mL suspension for injection RxNorm: 4584387 1Milliliter 07/08/2018 No longer Active ceftriaxone 500 mg solution for injection RxNorm: 5656935 02/28/2018 No longer Active Kenalog 40 mg/mL suspension for injection RxNorm: 3440276 Milliliter 02/26/2018 No longer Active Kenalog 40 mg/mL suspension for injection RxNorm: 1365914 Milliliter 06/29/2017 No longer Active ceftriaxone 500 mg solution for injection RxNorm: 4133309 02/06/2017 No longer Active Kenalog 40 mg/mL suspension for injection RxNorm: 0704141 1Milliliter 09/27/2016 No longer Active ceftriaxone 500 mg solution for injection RxNorm: 5061558 1Milliliter 09/27/2016 No longer Active Kenalog 40 mg/mL suspension for injection RxNorm: 3346986 Milliliter 02/02/2015 No longer Active Immunizations Vaccine [...] 31.4 pg 10/23/2017 Cbc With Differential Ord2 Assumption% 8.5 % 10/23/2017 Cbc With Differential Ord2 [...] 2.73 K/ul 10/23/2017 Cbc With Differential Ord2 Assumption ABS# 0.9 K/ul 10/23/2017 Cbc With Differential Ord2 Eos ABS# 0.6 K/ul 10/23/2017 Cbc With Differential Ord2 Baso ABS# 0.0 K/ul 10/23/2017 Digoxin Ord9 DIGOXIN 1.0 NG/ML 10/23/2017 Lipid Ord30 CHOL 108 mg/dL 10/23/2017 Lipid Ord30 HDL 39.0 mg/dl 10/23/2017 Lipid Ord30 TRIG 175 mg/dL 10/23/2017 Lipid Ord30 LDL 34 mg/dL 10/23/2017 Lipid Ord30 C/HDL 2.8 Ratio 10/23/2017 Comp Metabolic Wpf499 NA 140 mEq/L 10/23/2017 Comp Metabolic Ltu963 K 4.1 mEq/L 10/23/2017 Comp Metabolic Jom916 CL 102 mEq/L 10/23/2017 Comp Metabolic Fku189 CO2 30.0 mEq/L 10/23/2017 Comp Metabolic Wtg834 ANION GAP 12 10/23/2017 Comp Metabolic Gps638 GLUCOSE 124 mg/dL 10/23/2017 Comp Metabolic Tfa804 Creat 1.1 mg/dL 10/23/2017 Comp Metabolic Onn981 eGFR 71 ml/min/1.73m2 10/23/2017 Comp Metabolic Yjg912 BUN 11 mg/dL 10/23/2017 Comp Metabolic Asf353 B/C Ratio 10.2 Ratio 10/23/2017 Comp Metabolic Qnp926 CALCIUM 9.3 mg/dL 10/23/2017 Comp Metabolic Krj692 ALK PHOS 72 U/L 10/23/2017 Comp Metabolic Wqc449 AST(SGOT) 21 U/L 10/23/2017 Comp Metabolic Yam270 ALT(SGPT) 17 U/L 10/23/2017 Comp Metabolic Kfd892 BILI T 0.8 mg/dL 10/23/2017 Comp Metabolic Fmr341 ALBUMIN 4.3 g/dL 10/23/2017 Comp Metabolic Miz478 TPRO 7.4 g/dL 10/23/2017 Comp Metabolic Rza419 GLOB 3.1 g/dL 10/23/2017 Comp Metabolic Lie311 A/G Ratio 1.4 Ratio 10/23/2017 Comp Metabolic Ktc089 Osmo 280 mOsmo 10/23/2017 Tsh Ord6 TSH (3rd IS) 3.37 uIU/mL 10/23/2017 Test(s) Not Perfromed [id number] Test(s) Not Performed Test(s) Not Performed. See Below: 10/23/2017 Test(s) Not Perfromed [id number] TEST NAME PSA 10/23/2017 Test(s) Not Perfromed [id number] Rejection Reason PSA Performed yearly at Dr. Stone's Office 10/23/2017 Test(s) Not Perfromed [id number] COMMENT N/A 10/23/2017 Test(s) Not Perfromed [id number] [employer] Reporter Gian Johnson 10/23/2017 Comp Metabolic Mzv127 NA 137 mEq/L 03/21/2016 Comp Metabolic Wof530 K 4.6 mEq/L 03/21/2016 Comp Metabolic Yym182 CL 101 mEq/L 03/21/2016 Comp Metabolic Nge035 CO2 31.0 mEq/L 03/21/2016 Comp Metabolic Pbt263 ANION GAP 10 03/21/2016 Comp Metabolic Uyv521 GLUCOSE 106 mg/dL 03/21/2016 Comp Metabolic Miv201 Creat 1.1 mg/dL 03/21/2016 Comp Metabolic Kfq800 eGFR 69 ml/min/1.73m2 03/21/2016 Comp Metabolic Asz852 BUN 11 mg/dL 03/21/2016 Comp Metabolic Mva789 B/C Ratio 9.9 Ratio 03/21/2016 Comp Metabolic Dnk037 CALCIUM 9.5 mg/dL 03/21/2016 Comp Metabolic Uyr334 ALK PHOS 88 U/L 03/21/2016 Comp Metabolic Jpk014 AST(SGOT) 21 U/L 03/21/2016 Comp Metabolic Bgg709 ALT(SGPT) 15 U/L 03/21/2016 Comp Metabolic Hzg207 BILI T 0.7 mg/dL 03/21/2016 Comp Metabolic Ryj196 ALBUMIN 4.2 g/dL 03/21/2016 Comp Metabolic Dkn378 TPRO 7.9 g/dL 03/21/2016 Comp Metabolic Czn422 GLOB 3.7 g/dL 03/21/2016 Comp Metabolic Twm052 A/G Ratio 1.1 Ratio 03/21/2016 Comp Metabolic Uor473 Osmo 274 mOsmo 03/21/2016 Lipid Ord30 CHOL [...] 31.3 pg 03/21/2016 Cbc With Differential Ord2 Assumption% 10.3 % 03/21/2016 Cbc With Differential Ord2 [...] 2.51 K/ul 03/21/2016 Cbc With Differential Ord2 Assumption ABS# 1.2 K/ul 03/21/2016 Cbc With Differential Ord2 Eos ABS# 0.7 K/ul 03/21/2016 Cbc With Differential Ord2 Baso ABS# 0.0 K/ul 03/21/2016 Clostridium Diff Tox A/B Nkn344 Cdiff Negative 02/01/2016 Culture Mrsa [id number] MRSA CULTURE SEE NOTES 04/09/2015 Digoxin Ord9 [...] Ord9 DIGOXIN 1.0 NG/ML 03/11/2015 Comp Metabolic Zxp266 NA 142 mEq/L 03/11/2015 Comp Metabolic Xrx115 K 4.4 mEq/L 03/11/2015 Comp Metabolic Bti868 CL 107 mEq/L 03/11/2015 Comp Metabolic Ang534 CO2 27.0 mEq/L 03/11/2015 Comp Metabolic Ygk818 ANION GAP 12 03/11/2015 Comp Metabolic Wde695 GLUCOSE 106 mg/dL 03/11/2015 Comp Metabolic Ntj103 Creat 1.1 mg/dL 03/11/2015 Comp Metabolic Hgn390 eGFR 68 ml/min/1.73m2 03/11/2015 Comp Metabolic Uyn072 BUN 16 mg/dL 03/11/2015 Comp Metabolic Xrn001 B/C Ratio 14.3 Ratio 03/11/2015 Comp Metabolic Nbp791 CALCIUM 9.5 mg/dL 03/11/2015 Comp Metabolic Tiy426 ALK PHOS 82 U/L 03/11/2015 Comp Metabolic Hwh675 AST(SGOT) 20 U/L 03/11/2015 Comp Metabolic Mka549 ALT(SGPT) 17 U/L 03/11/2015 Comp Metabolic Jdt785 BILI T 0.4 mg/dL 03/11/2015 Comp Metabolic Pqm422 ALBUMIN 4.0 g/dL 03/11/2015 Comp Metabolic Jir917 TPRO 6.9 g/dL 03/11/2015 Comp Metabolic Mxg400 GLOB 2.9 g/dL 03/11/2015 Comp Metabolic Inr558 A/G Ratio 1.4 Ratio 03/11/2015 Comp Metabolic Jxs602 Osmo 285 mOsmo 03/11/2015 Metabolic Ord15 NA [...] inspection of skin Location: face 04/23/2018 right yazidi, forehead, left yazidi - irrirated [...] inspection of skin Location: face 10/22/2017 right yazidi, forehead, left yazidi - irrirated [...] clear 04/10/2017 None Full Exam - General 1995 Ears/Nose/Throat oral cavity/pharynx/larynx Overall: oropharyngeal mucosa clear [...] clear 02/06/2017 None Full Exam - General 1995 Ears/Nose/Throat lips/teeth/gingiva Overall: benign lips 02/06/2017 None Full Exam - General 1995 Ears/Nose/Throat lips/teeth/gingiva Overall: normal dentition 02/06/2017 None Full Exam - General 1995 Ears/Nose/Throat oral cavity/pharynx/larynx Overall: oral mucosa clear 02/06/2017 None Full Exam - General 1994 Ears/Nose/Throat oral cavity/pharynx/larynx Overall: oropharyngeal mucosa clear 02/06/2017 None Full Exam - General 1995 Ears/Nose/Throat oral cavity/pharynx/larynx Overall: hypopharynx benign 02/06/2017 [...] intact 09/27/2016 None Full Exam - General 1995 Constitutional general appearance Development: well developed 03/21/2016 [...] CPT-4: J3301 07/08/2018 THER/PROPH/DIAG INJ SC/IM CPT-4: 31819 07/08/2018 THER/PROPH/DIAG INJ SC/IM CPT-4: 66025 02/28/2018 ROCEPHIN, PER 250 MG CPT- 4: J0696 02/28/2018 THER/PROPH/DIAG INJ SC/IM CPT-4: 37944 02/26/2018 TRIAMCINOLONE ACET INJ NOS CPT-4: J3301 02/26/2018 PPPS, SUBSEQ VISIT CPT- 4: G0439 2017 TRIAMCINOLONE ACET INJ NOS CPT-4: J3301 06/29/2017 THER/PROPH/DIAG INJ SC/IM CPT-4: 94827 02/06/2017 ROCEPHIN, PER 250 MG CPT- 4: J0696 02/06/2017 ROCEPHIN, PER 250 MG CPT- 4: J0696 09/27/2016 TRIAMCINOLONE ACET INJ NOS CPT-4: J3301 09/27/2016 THER/PROPH/DIAG INJ SC/IM CPT-4: 31045 09/27/2016 DESTRUCT PREMALG LESION CPT-4: 16240 10/14/2015 DESTRUCT PREMALG LESION CPT-4: 96484 07/20/2015 DESTRUCT PREMALG LESION CPT-4: 66650 07/06/2015 DESTRUCT PREMALG LES 2-14 CPT-4: 37745 07/06/2015 TRIAMCINOLONE ACET INJ NOS CPT-4: J3301 02/02/2015 Vital Signs Date Vital 07/08/2018 Blood Pressure 1: 134/64 Code: 8480-6 BMI: 30.6 Code: 09510-1 Heart Rate 1: 79 bpm Height: 5'8" SpO2: 98% Weight: 201 lbs 06/04/2018 Blood Pressure 1: 130/62 Code: 8480-6 BMI: 30.6 Code: 65661-5 Heart Rate 1: 88 bpm Height: 5'8" SpO2: 97% Weight: 201 lbs 04/23/2018 Blood Pressure 1: 130/72 Code: 8480-6 BMI: 30.1 Code: 49133-8 Heart Rate 1: 74 bpm Height: 5'8" SpO2: 97% Weight: 198 lbs 02/28/2018 Blood Pressure 1: 124/72 Code: 8480-6 BMI: 30.0 Code: 69866-3 Heart Rate 1: 69 bpm Height: 5'8" SpO2: 97% Temperature: 36.6 (C) / 97.8 (F) Weight: 197 lbs 02/19/2018 Blood Pressure 1: 128/76 Code: 8480-6 BMI: 30.0 Code: 72209-8 Heart Rate 1: 66 bpm Height: 5'8" SpO2: 97% Weight: 197 lbs 11/09/2017 Blood Pressure 1: 130/74 Code: 8480-6 BMI: 29.3 Code: 89620-6 Heart Rate 1: 81 bpm Height: 5'8" SpO2: 98% Temperature: 36.6 (C) / 97.9 (F) Weight: 193 lbs 10/22/2017 Blood Pressure 1: 132/82 Code: 8480-6 BMI: 29.0 Code: 44771-6 Heart Rate 1: 80 bpm Height: 5'8" SpO2: 98% Weight: 191 lbs 2017 Blood Pressure 1: 142/68 Code: 8480-6 BMI: 28.7 Code: 41063-8 Heart Rate 1: 62 bpm Height: 5'8" SpO2: 98% Waist Measure (cm): 102 cm Weight: 189 lbs 07/23/2017 Blood Pressure 1: 138/84 Code: 8480-6 BMI: 29.0 Code: 39971-7 Heart Rate 1: 69 bpm Height: 5'8" SpO2: 98% Weight: 191 lbs 07/09/2017 Blood Pressure 1: 120/82 Code: 8480-6 BMI: 29.2 Code: 22843-7 Heart Rate 1: 80 bpm Height: 5'8" SpO2: 98% Weight: 192 lbs 06/29/2017 Blood Pressure 1: 140/82 Code: 8480-6 BMI: 29.5 Code: 07544-2 Heart Rate 1: 83 bpm Height: 5'8" SpO2: 98% Weight: 194 lbs 04/23/2017 Blood Pressure 1: 132/74 Code: 8480-6 BMI: 28.4 Code: 08886-0 Heart Rate 1: 78 bpm Height: 5'8" SpO2: 97% Weight: 187 lbs 04/10/2017 Blood Pressure 1: 126/68 Code: 8480-6 BMI: 29.5 Code: 55838-3 Heart Rate 1: 68 bpm Height: 5'8" SpO2: 92% Temperature: 37.5 (C) / 99.5 (F) Weight: 194 lbs 03/29/2017 Blood Pressure 1: 116/76 Code: 8480-6 BMI: 29.6 Code: 36611-6 Heart Rate 1: 61 bpm Height: 5'8" SpO2: 98% Weight: 195 lbs 02/06/2017 Blood Pressure 1: 130/74 Code: 8480-6 BMI: 30.4 Code: 28284-4 Heart Rate 1: 71 bpm Height: 5'8" SpO2: 98% Weight: 200 lbs 11/06/2016 Blood Pressure 1: 140/74 Code: 8480-6 BMI: 29.5 Code: 88431-4 Heart Rate 1: 76 bpm Height: 5'8" SpO2: 96% Weight: 194 lbs 09/27/2016 Blood Pressure 1: 138/78 Code: 8480-6 BMI: 29.6 Code: 78204-0 Heart Rate 1: 68 bpm Height: 5'8" SpO2: 97% Weight: 195 lbs 03/21/2016 Blood Pressure 1: 148/82 Code: 8480-6 BMI: 30.6 Code: 52467-0 Heart Rate 1: 67 bpm Height: 5'8" SpO2: 98% Weight: 201 lbs 02/01/2016 Blood Pressure 1: 128/86 Code: 8480-6 BMI: 30.3 Code: 05071-1 Heart Rate 1: 84 bpm Height: 5'8" SpO2: 96% Weight: 199 lbs 11/23/2015 Blood Pressure 1: 132/76 Code: 8480-6 BMI: 30.4 Code: 28229-0 Heart Rate 1: 81 bpm Height: 5'8" SpO2: 98% Weight: 200 lbs 10/14/2015 Blood Pressure 1: 120/80 Code: 8480-6 BMI: 30.4 Code: 44387-0 Heart Rate 1: 87 bpm Height: 5'8" SpO2: 97% Weight: 200 lbs 07/20/2015 Blood Pressure 1: 132/84 Code: 8480-6 BMI: 31.0 Code: 53033-8 Heart Rate 1: 78 bpm Height: 5'8" SpO2: 96% Weight: 204 lbs 07/06/2015 Blood Pressure 1: 130/78 Code: 8480-6 BMI: 31.0 Code: 64234-3 Heart Rate 1: 80 bpm Height: 5'8" SpO2: 98% Weight: 204 lbs 03/29/2015 Blood Pressure 1: 132/82 Code: 8480-6 BMI: 29.6 Code: 07882-1 Heart Rate 1: 76 bpm Height: 5'8" SpO2: 96% Weight: 195 lbs 03/08/2015 Blood Pressure 1: 126/84 Code: 8480-6 BMI: 30.2 Code: 96140-6 Heart Rate 1: 101 bpm Height: 5'8" SpO2: 98% Weight: 198 lbs 8 oz 02/02/2015 Blood Pressure 1: 132/86 Code: 8480-6 Heart Rate 1: 86 bpm SpO2: 98% Temperature: 36.6 (C) / 97.8 (F) Weight: 198 lbs 09/22/2014 Blood Pressure 1: 128/80 Code: 8480-6 BMI: 29.3 Code: 73339-7 Heart Rate 1: 85 bpm Height: 5'8" [...] data Encounters Encounter Performer Location Codes Date 70612 EST. PATIENT, LEVEL IV Diagnosis: Other acute sinusitis[ICD10: J01.80] Diagnosis: Other allergic rhinitis[ICD10: J30.89] Diagnosis: Other mucopurulent conjunctivitis, right eye[ICD10: H10.021] Sandra Parsons MD, [facility] CPT-4: 85185 07/08/2018 [id number] EST. PATIENT, LEVEL III Diagnosis: Cellulitis of right upper limb[ICD10: L03.113] Sandra Parsons MD, [facility] CPT-4: 12929 06/04/2018 ([id number]) 62455 EST. PATIENT, LEVEL IV Diagnosis: Essential (primary) hypertension[ICD10: I10] Diagnosis: Chronic atrial fibrillation[ICD10: I48.2] Diagnosis: Mixed hyperlipidemia[ICD10: E78.2] Steffany Parsons MD, [facility] CPT- 4: 06962 04/23/2018 [id number] EST. PATIENT, LEVEL IV Diagnosis: Other acute sinusitis[ICD10: J01.80] Diagnosis: Other allergic rhinitis[ICD10: J30.89] Sandra Parsons MD, [facility] CPT- 4: 46699 02/28/2018 [id number] EST. PATIENT, LEVEL IV Diagnosis: Other acute sinusitis[ICD10: J01.80] Diagnosis: Other allergic rhinitis[ICD10: J30.89] Sandra Parsons MD, [facility] CPT- 4: 89954 02/19/2018 [id number] EST. PATIENT, LEVEL III Diagnosis: Acute laryngopharyngitis[ICD10: J06.0] Diagnosis: Other allergic rhinitis[ICD10: J30.89] Sandra Parsons MD, [facility] CPT- 4: 81046 11/09/2017 ([id number]) 98428 EST. PATIENT, LEVEL IV Diagnosis: Essential (primary) hypertension[ICD10: I10] Diagnosis: Chronic atrial fibrillation[ICD10: I48.2] Steffany Parsons MD, [facility] CPT-4: 05410 10/22/2017 ([id number]) 12728 EST. PATIENT, LEVEL IV Diagnosis: Essential (primary) hypertension[ICD10: I10] Diagnosis: Chronic atrial fibrillation[ICD10: I48.2] Diagnosis: Cough[ICD10: R05] Steffany Parsons MD, [facility] CPT-4: 51480 07/23/2017 ([id number]) 54963 EST. PATIENT, LEVEL III Diagnosis: Cough[ICD10: R05] Diagnosis: Other allergic rhinitis[ICD10: J30.89] Diagnosis: Chronic obstructive pulmonary disease with (acute) exacerbation[ICD10: J44.1] Lucrecia Parsons MD, [facility] CPT-4: 31677 07/09/2017 ([id number]) 79195 EST. PATIENT, LEVEL III Diagnosis: Cough[ICD10: R05] Diagnosis: Other allergic rhinitis[ICD10: J30.89] Diagnosis: Chronic obstructive pulmonary disease with (acute) exacerbation[ICD10: J44.1] Lucrecia Parsons MD, [facility] CPT-4: 67589 06/29/2017 ([id number]) 93985 EST. PATIENT, LEVEL III Diagnosis: Essential (primary) hypertension[ICD10: I10] Diagnosis: Cough[ICD10: R05] Steffany Parsons MD, [facility] CPT-4: 61096 04/23/2017 ([id number]) 23984 EST. PATIENT, LEVEL IV Diagnosis: Hemoptysis[ICD10: R04.2] Diagnosis: Essential (primary) hypertension[ICD10: I10] Diagnosis: Chronic obstructive pulmonary disease with acute lower respiratory infection[ICD10: J44.0] Steffany Parsons MD, [facility] CPT-4: 02763 04/10/2017 [id number] EST. PATIENT, LEVEL III Diagnosis: Acute laryngopharyngitis[ICD10: J06.0] Diagnosis: Other allergic rhinitis[ICD10: J30.89] Sandra Parsons MD, [facility] CPT- 4: 25017 03/29/2017 ([id number]) 38136 EST. PATIENT, LEVEL III Diagnosis: Pneumonia due to Mycoplasma pneumoniae[ICD10: J15.7] Diagnosis: Cough[ICD10: R05] Diagnosis: Other chest pain[ICD10: R07.89] Steffany Parsons MD, [facility] CPT-4: 62281 02/06/2017 24855 EST. PATIENT, LEVEL IV Diagnosis: Cough[ICD10: R05] Diagnosis: Shortness of breath[ICD10: R06.02] Diagnosis: Gastro-esophageal reflux disease without esophagitis[ICD10: K21.9] Sandra Parsons MD, [facility] CPT-4: 43623 11/06/2016 [id number] EST. PATIENT, LEVEL IV Diagnosis: Other allergic rhinitis[ICD10: J30.89] Diagnosis: Acute bronchitis due to other specified organisms[ICD10: J20.8] Sandra Parsons MD, [facility] CPT-4: 43729 09/27/2016 ([id number]) 99376 EST. PATIENT, LEVEL IV Diagnosis: Essential (primary) hypertension[ICD10: I10] Diagnosis: Chronic atrial fibrillation[ICD10: I48.2] Diagnosis: Encounter for therapeutic drug level monitoring[ICD10: Z51.81] Steffany Parsons MD, [facility] [facility] CPT-4: 35951 03/21/2016 ([id number]) 75826 EST. 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 PATIENT, LEVEL III Diagnosis: 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[ICD10: C44.229] Diagnosis: Essential (primary) hypertension[ICD10: I10] Diagnosis: Allergic rhinitis due to pollen[ICD10: J30.1] Diagnosis: Cough[ICD10: R05] Steffany Parsons MD, [facility] CPT-4: 16246 11/23/2015 ([id number]) 67795 EST. PATIENT, LEVEL III Diagnosis: Allergic rhinitis due to pollen[ICD10: J30.1] Diagnosis: Actinic keratosis[ICD10: L57.0] Lucrecia Parsons MD, [facility] CPT-4: 28928 10/14/2015 ([id number]) 73324 EST. PATIENT, LEVEL IV Diagnosis: Essential (primary) hypertension[ICD10: I10] Diagnosis: Chronic atrial fibrillation[ICD10: I48.2] Steffany Parsons MD, [facility] CPT-4: 56970 07/06/2015 65669 EST. PATIENT, LEVEL III Diagnosis: Essential (primary) hypertension[ICD10: I10] Diagnosis: Chronic atrial fibrillation[ICD10: I48.2] Diagnosis: Shortness of breath[ICD10: R06.02] Diagnosis: Melena[ICD10: K92.1] Sandra Parsons MD, [facility] CPT-4: 69095 03/29/2015 ([id number]) 98249 EST. PATIENT, LEVEL IV Diagnosis: Essential (primary) hypertension[ICD10: I10] Diagnosis: Chronic atrial fibrillation[ICD10: I48.2] Diagnosis: Cough[ICD10: R05] Steffany Parsons MD, [facility] CPT-4: 11040 03/08/2015 ([id number]) 43935 EST. PATIENT, LEVEL III Diagnosis: Other seasonal allergic rhinitis[ICD10: J30.2] Diagnosis: Other lesions of oral mucosa[ICD10: K13.79] Lucrecia Parsons MD, [facility] CPT-4: 37619 02/02/2015 ([id number]) OFFICE VISIT, NEW - LEVEL 4 Diagnosis: ESSENTIAL HYPERTENSION[ICD9: 401.9] Diagnosis: HYPERLIPIDEMIA[ICD9: 272.4] Diagnosis: ACTINIC KERATOSIS[ICD9: 702.0] Steffany Parsons MD, [facility] CPT-4: 12446 09/22/2014 Plan of Care Planned Activity Notes [...] times daily. 07/08/2018 [phone] ([facility] min) Moderate 07/08/2018 Patient Education: Patient [...] warmth, discharge. 06/04/2018 Appointment: Sandra Tim WPtel: [phone] [facility] (30 min) Complex 06/04/2018 Patient Education: Patient [...] this time. 04/23/2018 [phone] ([facility]) Moderate 04/23/2018 Patient Education: Patient [...] allergy spray. 02/28/2018 Appointment: Sandra Tim WPtel: [facility]4 [facility] (15 min) Moderate 02/28/2018 Patient Education: Patient [...] allergy spray. 02/19/2018 Appointment: Sandra Tim WPtel: [facility]0 [facility] (15 min) Moderate 02/19/2018 Patient Education: Patient [...] allergy spray. 11/09/2017 Appointment: Sandra Tim WPtel: [facility]7 [facility]66[facility] (15 min) Moderate 11/09/2017 Patient Education: Patient [...] becoming uncontrolled. 10/22/2017 Appointment: Steffany Parsons WPtel: [facility]6 [facility] (15 min) Moderate 10/22/2017 Patient Education: Patient [...] spray) 07/23/2017 Appointment: Steffany Parsons WPtel: [phone] [facility] (15 min) Moderate 07/23/2017 Patient Education: Patient [...] acute changes. 07/09/2017 [facility]: [phone] (30 min) Complex 07/09/2017 Patient Education: Patient [...] acute changes. 06/29/2017 Appointment: Lucrecia Yeager WPtel: [phone] [phone] [place] (15 min) Moderate 06/29/2017 Patient Education: Patient Medication Summary Completed 06/29/2017 Appointment: Steffany Parsons WPtel: [facility]4 [facility] (15 min) Moderate 04/30/2017 Visit Plan: Hypertension [...] breathing treatments. 04/23/2017 Appointment: Steffany Parsons WPtel: [phone] [facility] (15 min) Moderate 04/23/2017 Patient Education: Patient Medication Summary Completed 04/23/2017 Visit Plan: Hemoptysis and COPD exacerbation - continue with antibiotics, rx for antifungal tablet and suspension. chest xray ordered, monitor symptoms. Pt to stop aspirin x 1 week, continue with eliquis. call if s ymptoms are not improving. rx for phenergan with codeine. 04/10/2017 Appointment: Steffany Parsons WPtel: [phone] [facility] [place] (15 min) Moderate 04/10/2017 Patient Education: Patient [...] allergy spray. 03/29/2017 Appointment: Sandra Tim WPtel: [facility]5 [facility]66[facility] (15 min) Moderate 03/29/2017 Patient Education: Patient Medication Summary Completed 03/29/2017 Visit Plan: Pneumonia - Pt has been diagnosed with pneumonia by physical exam. A chest xray has been ordered as have antibiotics. The pt is aware of the diagnosis and the need for acute treatment of this illness. Cough - rx for promethazine/codeine syrup for cough. 02/06/2017 Appointment: Steffany Parsons WPtel: [facility]8 [facility]66[facility] (15 min) Moderate 02/06/2017 Patient Education: [...] not improving. 11/06/2016 Appointment: Sandra Tim WPtel: [phone] [facility] (15 min) Moderate 11/06/2016 Patient Education: Patient [...] worsen. 09/27/2016 Appointment: Sandra Tim WPtel: [phone] [facility] (30 min) Complex 09/27/2016 Patient Education: Patient [...] becoming uncontrolled. 03/21/2016 Appointment: Steffany Parsons WPtel: [facility]8 [facility] (15 min) Moderate 03/21/2016 Patient Education: Patient Medication Summary Completed 03/21/2016 Patient Education: Obesity Completed 03/21/2016 Visit Plan: Diarrhea-recent abx use-check stool for cdiff-increase probiotic to twice daily-bland diet advance as tolerated-call if symptoms do not resolve or if any worse. Patient verbalized understanding of plan. 02/01/2016 Appointment: Lucrecia Yeager WPtel: [phone] [phone] (15 min) Moderate 02/01/2016 Patient Education: Patient Medication Summary Completed 02/01/2016 Patient Education: Obesity Completed 02/01/2016 Referral: Alexi Honeycutt [id number] [place] Info faxed Completed 11/27/2015 Visit Plan: Hypertension [...] Summary Completed 11/23/2015 Appointment: Steffany Parsons WPtel: [facility] (15 min) Moderate 11/15/2015 Visit Plan: [...] not heal 10/14/2015 Appointment: Lucrecia Yeager WPtel: [facility]6 [place] [phone] (15 min) Moderate 10/14/2015 Patient Education: Patient [...] acute concerns. 07/20/2015 Appointment: Lucrecia Yeager WPtel: [facility]0 [place] [phone] (30 min) Complex 07/20/2015 Patient Education: Patient [...] acute concerns. 07/06/2015 Appointment: [phone] (15 min) Moderate 07/06/2015 Patient Education: [...] - pt has an upcoming appointment with parts counter specialist to possibly have an ablation done. [...] Patient Education: Hypertension Completed 03/08/2015 [id number] [facility] Completed 02/13/2015 Visit Plan: Allergies [...] 02/02/2015 Care Plan: Referral Order SNOMED-CT : [id number] Ordered 02/02/2015 Visit Plan: Hypertension - well [...] not improving. 09/22/2014 Appointment: Steffany Parsons WPtel: [address] [place], [place] [address] [place] ([place]) New Patient 09/22/2014 Patient Education: Patient Medication Summary Completed 09/22/2014 Patient Education: Hypertension Completed 09/22/2014 [id number] Ref[facility] Initiated Instructions Comment . Hypertension - [...] and start the doxycycline take a probiotic (culturelle, HTP, or generic) twice a day while on [...] - pt has an upcoming appointment with parts counter specialist to possibly have an ablation done. Bloody stool - pt states that he had bright red blood in his stool, states he thinks it is from straining to go - will check H&H . Hypertension - well controlled - continue [...] use on lesions, call if not improving. claritin or stephen instead of the zyrtec [...] not improved, or if symptoms acutely worsen. Kenalog injection today in the office-if your [...] Dr Honeycutt for evaluation and biopsy . Pneumonia - Pt has been diagnosed with pneumonia by physical exam. A chest xray has been ordered as have antibiotics. The pt is aware of the diagnosis and the need for acute treatment of this illness. Cough - rx for promethazine/codeine syrup for cough. FLONASE NASAL SPRAY KENALOG INJECTION TODAY SHORT [...] patient is stable, monitor for acute changes. CHECK STOOL FOR CDIFF INCREASE PROBIOTIC TO TWICE DAILY . Diarrhea-recent abx use-check stool for cdiff-increase probiotic to twice daily- bland diet advance as tolerated-call if symptoms do not resolve or if any worse. Patient verbalized understanding of plan. Mucinex - take twice daily with 16 [...] to keep appt with Dr. Avila - increase the flonase to twice daily use [...] to work this up at this time. appt with Dr. Honeycutt in his clinic [...] of the lesion on his ear . URI - Pt advised to increase [...] spray in the nasal steroid allergy spray. return to clinic on Sunday for recheck. Cellulitis - possible spider bite - The patient was instructed in appropriate wound care. The patient was instructed to use the antibiotic and ointment as per RX. The patient is to call for any change in symptoms, increase in size of the lesion, increase in pain, worsening redness, warmth, discharge. . Wound Instructions - Pt was instructed [...] of breath - resolved finish breathing treatments. . Allergies - chronic - recommended pt [...] left ear lesion does not heal . Sinusitis - Pt has acute infection [...] in the nasal steroid allergy spray. . Cough, shortness of breath - ongoing [...] if the symptoms are not improving. . Medicare Exam - today we discussed [...]
[2018-08-31] MEDS ORDERED: NS IV 1000 ML 1,000 ML ONE (19:00)
--- NOTE | 2018-08-31 19:00 | NUR ---
ANIYEHUDA admitted to room 424-1, with an admitting diagnosis of SRAVANTHI pneumonia, on 08/31/18 from ED via stretcher, accompanied by staff and . YEHUDA LAW introduced to surroundings, call light, bed controls, phone, TV, temperature control, lights, meal times, smoking policy, visitor policy, side rail policy, bathrooms and showers. Patient Rights given to patient in the handbook. YEHUDA LAW verbalizes understanding that [facility] is not responsible for the loss or damage to any personal effects or valuables that are kept in the patients possession during their hospitalization. YEHUDA LAW verbalizes understanding of Interdisciplinary Patient Education. Patient and/or family were informed about the Rapid Response Team and its purpose.
--- OUTSIDE RECORDS SUMMARY | 2018-08-31 19:00 | XMS REPORT | CCD ---
Author Author Steffany Parsons Organization [facility] Address [address] [place] [address] Phone Care Team Providers Care Obstetrics Scrub Nurse Name Role Phone PP Unavailable CCM Unavailable Summary Purpose Interface Exchange Insurance Providers Payer name Policy type / Coverage type Covered constitution party ID Effective Begin Date Effective End Date [facility] Commercial Insurance [id number] Unknown Unknown Family history Father Diagnosis Age At Onset Prostate Cancer Unknown Runs in the family Diagnosis Age At Onset Hypertension Unknown Mother Diagnosis Age At Onset No Family Disease Entered N/A Social History Social History Element Codes Description Effective Dates Marital status Unknown Mary 02/06/2017 Number of children Unknown 5 09/22/[address]: 3015380 Quit over 10 years ago 09/22/[address]: 162185390 Never drinks alcohol 09/22/2014 Allergies, Adverse Reactions, [...] Instructions doxycycline hyclate 100 mg capsule RxNorm: 7563687 1 Capsule(s) PO BID 07/08/2018 07/17/2018 Active Kenalog 40 mg/mL suspension for injection RxNorm: 0730988 1 Milliliter(s) Inj 07/08/2018 07/08/2018 Inactive ciprofloxacin 0.3 % eye drops RxNorm: 617211 2 Drop(s) ophthalmic (eye) Q2H while awake x 2 days then Q4H x 5 days 07/08/2018 No Stop Date Active Keflex 500 mg capsule RxNorm: 684735 1 Capsule(s) PO TID 07/02/2018 07/08/2018 Inactive dapsone 100 mg tablet RxNorm: 274271 1 Tablet(s) PO daily 06/04/2018 06/10/2018 Inactive doxycycline hyclate 100 mg capsule RxNorm: 5405490 1 Capsule(s) PO BID 06/04/2018 06/13/2018 Inactive Lasix 40 mg tablet RxNorm: 341975 TAKE 1 TABLET DAILY 04/22/2018 No Stop Date Active prednisone 20 mg tablet RxNorm: 934044 2 Tablet(s) PO daily 02/28/2018 03/04/2018 Inactive START TOMORROW Keflex 500 mg capsule RxNorm: 136183 1 Capsule(s) PO TID 02/28/2018 03/09/2018 Inactive ceftriaxone 500 mg solution for injection RxNorm: 1363862 Inj 02/28/2018 02/28/2018 Inactive Kenalog 40 mg/mL suspension for injection RxNorm: 1844253 Milliliter(s) Inj 02/26/2018 02/26/2018 Inactive Keflex 500 mg capsule RxNorm: 709106 1 Capsule(s) PO TID 02/19/2018 02/25/2018 Inactive Klor-Con M20 mEq tablet,extended release RxNorm: 5468418 TAKE 1 TABLET EVERY MORNING 12/04/2017 No Stop Date Active prednisone 20 mg tablet RxNorm: 846997 2 Tablet(s) PO daily 11/16/2017 11/20/2017 Inactive START TOMORROW Zithromax Z-Mau 250 mg tablet RxNorm: 424105 1 Tablet(s) PO daily 11/16/2017 11/20/2017 Inactive Zithromax Z-Mau 250 mg tablet RxNorm: 446475 1 Tablet(s) PO daily 11/16/2017 11/15/2017 Inactive Keflex 500 mg capsule RxNorm: 936822 1 Capsule(s) PO TID 11/09/2017 11/15/2017 Inactive Zithromax 250 mg tablet RxNorm: 746523 [address] day and 1 tab po on day 2-5 Tablet(s) PO 08/30/2017 09/03/2017 Inactive zpack x 1 doxycycline hyclate 100 mg tablet RxNorm: 811921 1 Tablet(s) PO BID 07/09/2017 07/15/2017 Inactive prednisone 20 mg tablet RxNorm: 038509 2 Tablet(s) PO daily 06/29/2017 07/01/2017 Inactive START TOMORROW Kenalog 40 mg/mL suspension for injection RxNorm: 9627869 Milliliter(s) Inj 06/29/2017 06/29/2017 Inactive Lasix 40 mg tablet RxNorm: 620375 TAKE 1 TABLET DAILY 04/24/2017 04/21/2018 Inactive Diflucan 150 mg tablet RxNorm: 072504 1 Tablet(s) PO daily 04/10/2017 04/16/2017 Inactive Bactrim DS 800 mg-160 mg tablet RxNorm: 523091 1 Tablet(s) PO BID 04/10/2017 04/16/2017 Inactive nystatin 100,000 unit/mL oral suspension RxNorm: 104604 5 Milliliter(s) PO QID 04/10/2017 04/19/2017 Inactive cefdinir 300 mg capsule RxNorm: 343553 1 Capsule(s) PO BID 03/28/2017 04/06/2017 Inactive cefdinir 300 mg capsule RxNorm: 816201 1 Capsule(s) PO BID 02/06/2017 02/15/2017 Inactive ceftriaxone 500 mg solution for injection RxNorm: 8924793 Inj 02/06/2017 02/06/2017 Inactive omeprazole 20 mg tablet,delayed release RxNorm: 815420 1 Tablet(s) PO daily 11/06/2016 12/05/2016 Inactive Phenergan with Codeine Syrup RxNorm: 5 Milliliter(s) PO QID as needed 10/30/2016 No Stop Date Active Tessalon Perles 100 mg capsule RxNorm: 354590 1-2 Capsule(s) PO TID as needed cough 10/30/2016 11/08/2016 Inactive Klor-Con M20 mEq tablet,extended release RxNorm: 5225490 TAKE 1 TABLET EVERY MORNING 10/26/2016 12/03/2017 Inactive ceftriaxone 500 mg solution for injection RxNorm: 3869564 1 Milliliter(s) Inj 09/27/2016 09/27/2016 Inactive Phenergan with Codeine Syrup RxNorm: 5 Milliliter(s) PO QID as needed 09/27/2016 10/29/2016 Inactive Tessalon Perles 100 mg capsule RxNorm: 991813 1-2 Capsule(s) PO TID as needed cough 09/27/2016 09/29/2016 Inactive Kenalog 40 mg/mL suspension for injection RxNorm: 6149849 1 Milliliter(s) Inj 09/27/2016 09/27/2016 Inactive Flagyl 500 mg tablet RxNorm: 463641 1 Tablet(s) PO TID 2016 08/05/2016 Inactive Lasix 40 mg tablet RxNorm: 755534 TAKE 1 TABLET DAILY 07/26/2016 04/23/2017 Inactive Zithromax 250 mg tablet RxNorm: 962290 [address] day and 1 tab po on day 2-5 Tablet(s) PO 03/28/2016 03/27/2016 Inactive zpack x 1 Zithromax 250 mg tablet RxNorm: 524065 [address] day and 1 tab po on day 2-5 Tablet(s) PO 03/28/2016 04/01/2016 Inactive zpack x 1 Flagyl 500 mg tablet RxNorm: 336344 1 Tablet(s) PO TID 02/07/2016 02/06/2016 Inactive Flagyl 500 mg tablet RxNorm: 947132 1 Tablet(s) PO TID 02/07/2016 02/16/2016 Inactive Zyrtec-D 5 mg-120 mg tablet,extended release RxNorm: 9806138 1 Tablet(s) PO daily as needed allergies 11/23/2015 No Stop Date Active Imodium A-D 2 mg tablet RxNorm: 707145 1/2 Tablet(s) PO daily 11/23/2015 No Stop Date Active Mucinex 600 mg tablet, extended release RxNorm: 602269 1 Tablet(s) PO BID as needed 11/23/2015 01/21/2016 Inactive Lasix 40 mg tablet RxNorm: 525901 TAKE 1 TABLET DAILY 11/01/2015 07/25/2016 Inactive Klor-Con M20 mEq tablet,extended release RxNorm: 6232237 TAKE 1 TABLET EVERY MORNING 11/01/2015 10/25/2016 Inactive Flonase Allergy Relief 50 mcg/actuation nasal spray,suspension RxNorm: 2 [place] NASAL daily 07/20/2015 No Stop Date Active Kenalog 40 mg/mL suspension for injection RxNorm: 3107121 Milliliter(s) Inj 02/02/2015 02/02/2015 Inactive Crestor 5 mg tablet RxNorm: 471934 1/2 Tablet(s) PO daily 10/05/2014 09/29/2015 Inactive metoprolol tartrate 100 mg tablet RxNorm: 878451 1 Tablet(s) PO BID 10/05/2014 12/28/2015 Inactive Plavix 75 mg tablet RxNorm: 463741 1 Tablet(s) PO daily 10/05/2014 03/07/2015 Inactive Klor-Con M20 mEq tablet,extended release RxNorm: 325279 1 Tablet(s) PO QAM 10/05/2014 10/31/2015 Inactive Lasix 40 mg tablet RxNorm: 593767 1 Tablet(s) PO daily 10/05/2014 10/31/2015 Inactive Efudex 5 % topical cream RxNorm: 371942 1 Application TOP BID x 2 weeks, allow healing x 1 -2 weeks, then reuse 10/05/2014 07/05/2015 Inactive Pradaxa 150 mg capsule RxNorm: 6501043 1 Capsule(s) PO BID 10/05/2014 04/09/2017 Inactive amlodipine 10 mg tablet RxNorm: 482899 1/2 Tablet(s) PO QAM 10/05/2014 07/05/2015 Inactive Efudex 5 % topical cream RxNorm: 482749 1 Application TOP BID x 2 weeks, allow healing x 1 -2 weeks, then reuse 09/22/2014 10/04/2014 Inactive Klor-Con M20 mEq tablet,extended release RxNorm: 533657 1 Tablet(s) PO QAM 09/22/2014 10/04/2014 Inactive Lasix 40 mg tablet RxNorm: 355969 1 Tablet(s) PO daily 09/22/2014 10/04/2014 Inactive Cartia XT 180 mg capsule,extended release RxNorm: 090977 2 Capsule(s) PO daily No Start Date Active cetirizine 10 mg tablet RxNorm: 4535604 1 Tablet(s) PO daily at lunch No Start Date Active Canasa 1,000 mg rectal suppository RxNorm: 842655 [address] seymour No Start Date Active Lialda 1.2 gram tablet,delayed release RxNorm: 687469 1 Tablet(s) PO QHS -Prescried by Dr. Seymour No Start Date Active Centrum Silver oral RxNorm: 07097 oral No Start Date Active Eliquis 5 mg tablet RxNorm: 1047756 1 Tablet(s) PO BID Dr Avila No Start Date Active aspirin 81 mg capsule,delayed release RxNorm: 744583 1 Capsule(s) PO daily No Start Date Active losartan 25 mg tablet RxNorm: 706742 1 Tablet(s) PO QPM at supper No Start Date Active digoxin 250 mcg tablet RxNorm: 040097 1 Tablet(s) PO daily No Start Date Active Vitamin D3 5,000 unit tablet RxNorm: 050886 1 Tablet(s) PO BID No Start Date Active Probiotic oral RxNorm: 6205 oral No Start Date Active Glucosamine Chondroit Complx Advan oral RxNorm: oral No Start Date Active Plavix 75 mg tablet RxNorm: 400929 1 Tablet(s) PO daily No Start Date 10/04/2014 Inactive Klor-Con M20 mEq tablet,extended release RxNorm: 197570 1 Tablet(s) PO QAM No Start Date 09/21/2014 Inactive Imodium oral RxNorm: oral No Start Date 11/22/2015 Inactive Lasix 40 mg tablet RxNorm: 070310 1 Tablet(s) PO daily No Start Date 09/21/2014 Inactive amlodipine 10 mg tablet RxNorm: 978305 1/2 Tablet(s) PO QAM No Start Date 10/04/2014 Inactive Crestor 5 mg tablet RxNorm: 616578 1/2 Tablet(s) PO daily No Start Date 10/04/2014 Inactive Flonase Allergy Relief 50 mcg/actuation nasal spray,suspension RxNorm: 1 [place] NASAL daily No Start Date 07/19/2015 Inactive metoprolol tartrate 100 mg tablet RxNorm: 508759 1 Tablet(s) PO BID No Start Date 10/04/2014 Inactive Probiotic 4X oral RxNorm: 1440516 oral No Start Date 07/06/2015 Inactive Pradaxa 150 mg capsule RxNorm: 8405019 1 Capsule(s) PO BID No Start Date 10/04/2014 Inactive Medication Administered Medication Codes Instructions Start Date Status Kenalog 40 mg/mL suspension for injection RxNorm: 7129773 1Milliliter 07/08/2018 Active ceftriaxone 500 mg solution for injection RxNorm: 4378723 02/28/2018 No longer Active Kenalog 40 mg/mL suspension for injection RxNorm: 0714067 Milliliter 02/26/2018 No longer Active Kenalog 40 mg/mL suspension for injection RxNorm: 4044299 Milliliter 06/29/2017 No longer Active ceftriaxone 500 mg solution for injection RxNorm: 5233441 02/06/2017 No longer Active Kenalog 40 mg/mL suspension for injection RxNorm: 2488043 1Milliliter 09/27/2016 No longer Active ceftriaxone 500 mg solution for injection RxNorm: 5249748 1Milliliter 09/27/2016 No longer Active Kenalog 40 mg/mL suspension for injection RxNorm: 6887794 Milliliter 02/02/2015 No longer Active Immunizations Vaccine [...] 31.4 pg 10/23/2017 Cbc With Differential Ord2 [place]% 8.5 % 10/23/2017 Cbc With Differential Ord2 [...] 2.73 K/ul 10/23/2017 Cbc With Differential Ord2 [place] ABS# 0.9 K/ul 10/23/2017 Cbc With Differential Ord2 Eos ABS# 0.6 K/ul 10/23/2017 Cbc With Differential Ord2 Baso ABS# 0.0 K/ul 10/23/2017 Digoxin Ord9 DIGOXIN 1.0 NG/ML 10/23/2017 Lipid Ord30 CHOL 108 mg/dL 10/23/2017 Lipid Ord30 HDL 39.0 mg/dl 10/23/2017 Lipid Ord30 TRIG 175 mg/dL 10/23/2017 Lipid Ord30 LDL 34 mg/dL 10/23/2017 Lipid Ord30 C/HDL 2.8 Ratio 10/23/2017 Comp Metabolic Gyx793 NA 140 mEq/L 10/23/2017 Comp Metabolic Qkr290 K 4.1 mEq/L 10/23/2017 Comp Metabolic Bvv035 CL 102 mEq/L 10/23/2017 Comp Metabolic Tcn695 CO2 30.0 mEq/L 10/23/2017 Comp Metabolic Bsa313 ANION GAP 12 10/23/2017 Comp Metabolic Jvt043 GLUCOSE 124 mg/dL 10/23/2017 Comp Metabolic Tjt711 Creat 1.1 mg/dL 10/23/2017 Comp Metabolic Xnh961 eGFR 71 ml/min/1.73m2 10/23/2017 Comp Metabolic Jmb237 BUN 11 mg/dL 10/23/2017 Comp Metabolic Ffo008 B/C Ratio 10.2 Ratio 10/23/2017 Comp Metabolic Ucx426 CALCIUM 9.3 mg/dL 10/23/2017 Comp Metabolic Rfd677 ALK PHOS 72 U/L 10/23/2017 Comp Metabolic Ljy958 AST(SGOT) 21 U/L 10/23/2017 Comp Metabolic Lyu577 ALT(SGPT) 17 U/L 10/23/2017 Comp Metabolic Deg941 BILI T 0.8 mg/dL 10/23/2017 Comp Metabolic Uxn968 ALBUMIN 4.3 g/dL 10/23/2017 Comp Metabolic Yfr199 TPRO 7.4 g/dL 10/23/2017 Comp Metabolic Flx556 GLOB 3.1 g/dL 10/23/2017 Comp Metabolic Efv800 A/G Ratio 1.4 Ratio 10/23/2017 Comp Metabolic Rgs124 Osmo 280 mOsmo 10/23/2017 Tsh Ord6 TSH (3rd IS) 3.37 uIU/mL 10/23/2017 Test(s) Not Perfromed [id number] Test(s) Not Performed Test(s) Not Performed. See Below: 10/23/2017 Test(s) Not Perfromed [id number] TEST NAME PSA 10/23/2017 Test(s) Not Perfromed [id number] Rejection Reason PSA Performed yearly at Dr. Stone's Office 10/23/2017 Test(s) Not Perfromed [id number] COMMENT N/A 10/23/2017 Test(s) Not Perfromed [id number] Sales Manager Gian Johnson 10/23/2017 Comp Metabolic Ayq056 NA 137 mEq/L 03/21/2016 Comp Metabolic Hkz460 K 4.6 mEq/L 03/21/2016 Comp Metabolic Skp162 CL 101 mEq/L 03/21/2016 Comp Metabolic Aje629 CO2 31.0 mEq/L 03/21/2016 Comp Metabolic Cga678 ANION GAP 10 03/21/2016 Comp Metabolic Pba133 GLUCOSE 106 mg/dL 03/21/2016 Comp Metabolic Eqk656 Creat 1.1 mg/dL 03/21/2016 Comp Metabolic Krd936 eGFR 69 ml/min/1.73m2 03/21/2016 Comp Metabolic Vdf525 BUN 11 mg/dL 03/21/2016 Comp Metabolic Quo212 B/C Ratio 9.9 Ratio 03/21/2016 Comp Metabolic Yvt999 CALCIUM 9.5 mg/dL 03/21/2016 Comp Metabolic Ncn694 ALK PHOS 88 U/L 03/21/2016 Comp Metabolic Itz364 AST(SGOT) 21 U/L 03/21/2016 Comp Metabolic Gvg602 ALT(SGPT) 15 U/L 03/21/2016 Comp Metabolic Uey215 BILI T 0.7 mg/dL 03/21/2016 Comp Metabolic Vfy304 ALBUMIN 4.2 g/dL 03/21/2016 Comp Metabolic Ywo299 TPRO 7.9 g/dL 03/21/2016 Comp Metabolic Ttr554 GLOB 3.7 g/dL 03/21/2016 Comp Metabolic Lph142 A/G Ratio 1.1 Ratio 03/21/2016 Comp Metabolic Ljj908 Osmo 274 mOsmo 03/21/2016 Lipid Ord30 CHOL [...] 31.3 pg 03/21/2016 Cbc With Differential Ord2 [place]% 10.3 % 03/21/2016 Cbc With Differential Ord2 [...] 2.51 K/ul 03/21/2016 Cbc With Differential Ord2 [place] ABS# 1.2 K/ul 03/21/2016 Cbc With Differential Ord2 Eos ABS# 0.7 K/ul 03/21/2016 Cbc With Differential Ord2 Baso ABS# 0.0 K/ul 03/21/2016 Clostridium Diff Tox A/B Ecw877 Cdiff Negative 02/01/2016 Culture Mrsa [id number] MRSA CULTURE SEE NOTES 04/09/2015 Digoxin Ord9 [...] Ord9 DIGOXIN 1.0 NG/ML 03/11/2015 Comp Metabolic Lfk951 NA 142 mEq/L 03/11/2015 Comp Metabolic Wpl695 K 4.4 mEq/L 03/11/2015 Comp Metabolic Hds088 CL 107 mEq/L 03/11/2015 Comp Metabolic Sxy086 CO2 27.0 mEq/L 03/11/2015 Comp Metabolic Hsq771 ANION GAP 12 03/11/2015 Comp Metabolic Pqv673 GLUCOSE 106 mg/dL 03/11/2015 Comp Metabolic Tjq934 Creat 1.1 mg/dL 03/11/2015 Comp Metabolic Wso198 eGFR 68 ml/min/1.73m2 03/11/2015 Comp Metabolic Nzb543 BUN 16 mg/dL 03/11/2015 Comp Metabolic Fve641 B/C Ratio 14.3 Ratio 03/11/2015 Comp Metabolic Qmd644 CALCIUM 9.5 mg/dL 03/11/2015 Comp Metabolic Xnu845 ALK PHOS 82 U/L 03/11/2015 Comp Metabolic Fiw538 AST(SGOT) 20 U/L 03/11/2015 Comp Metabolic Cbi863 ALT(SGPT) 17 U/L 03/11/2015 Comp Metabolic Chz729 BILI T 0.4 mg/dL 03/11/2015 Comp Metabolic Cjs029 ALBUMIN 4.0 g/dL 03/11/2015 Comp Metabolic Gdp873 TPRO 6.9 g/dL 03/11/2015 Comp Metabolic Btm639 GLOB 2.9 g/dL 03/11/2015 Comp Metabolic Jnz562 A/G Ratio 1.4 Ratio 03/11/2015 Comp Metabolic Zke572 Osmo 285 mOsmo 03/11/2015 Metabolic Ord15 NA [...] inspection of skin Location: face 04/23/2018 right sabianism, forehead, left sabianism - irrirated actinic keratosis Full Exam - [...] inspection of skin Location: face 10/22/2017 right sabianism, forehead, left sabianism - irrirated actinic keratosis Full Exam - [...] inspection of skin Location: face 03/21/2016 right sabianism, forehead, left sabianism - irrirated actinic keratosis Full Exam - [...] inspection of skin Location: face 11/23/2015 right sabianism, left sabianism - irrirated actinic keratosis Full Exam - [...] inspection of skin Location: face 07/06/2015 right sabianism, forehead, left sabianism - irrirated actinic keratosis Full Exam - [...] CPT-4: J3301 07/08/2018 THER/PROPH/DIAG INJ SC/IM CPT-4: 88293 07/08/2018 THER/PROPH/DIAG INJ SC/IM CPT-4: 24454 02/28/2018 ROCEPHIN, PER 250 MG CPT- 4: J0696 02/28/2018 THER/PROPH/DIAG INJ SC/IM CPT-4: 26082 02/26/2018 TRIAMCINOLONE ACET INJ NOS CPT-4: J3301 02/26/2018 PPPS, SUBSEQ VISIT CPT- 4: G0439 2017 TRIAMCINOLONE ACET INJ NOS CPT-4: J3301 06/29/2017 THER/PROPH/DIAG INJ SC/IM CPT-4: 12142 02/06/2017 ROCEPHIN, PER 250 MG CPT- 4: J0696 02/06/2017 ROCEPHIN, PER 250 MG CPT- 4: J0696 09/27/2016 TRIAMCINOLONE ACET INJ NOS CPT-4: J3301 09/27/2016 THER/PROPH/DIAG INJ SC/IM CPT-4: 65054 09/27/2016 DESTRUCT PREMALG LESION CPT-4: 66081 10/14/2015 DESTRUCT PREMALG LESION CPT-4: 94763 07/20/2015 DESTRUCT PREMALG LESION CPT-4: 57452 07/06/2015 DESTRUCT PREMALG LES 2-14 CPT-4: 10111 07/06/2015 TRIAMCINOLONE ACET INJ NOS CPT-4: J3301 02/02/2015 Vital Signs Date Vital 07/08/2018 Blood Pressure 1: 134/64 Code: 8480-6 BMI: 30.6 Code: 12968-7 Heart Rate 1: 79 bpm Height: 5'8" SpO2: 98% Weight: 201 lbs 06/04/2018 Blood Pressure 1: 130/62 Code: 8480-6 BMI: 30.6 Code: 37132-9 Heart Rate 1: 88 bpm Height: 5'8" SpO2: 97% Weight: 201 lbs 04/23/2018 Blood Pressure 1: 130/72 Code: 8480-6 BMI: 30.1 Code: 05652-3 Heart Rate 1: 74 bpm Height: 5'8" SpO2: 97% Weight: 198 lbs 02/28/2018 Blood Pressure 1: 124/72 Code: 8480-6 BMI: 30.0 Code: 87177-6 Heart Rate 1: 69 bpm Height: 5'8" SpO2: 97% Temperature: 36.6 (C) / 97.8 (F) Weight: 197 lbs 02/19/2018 Blood Pressure 1: 128/76 Code: 8480-6 BMI: 30.0 Code: 30543-0 Heart Rate 1: 66 bpm Height: 5'8" SpO2: 97% Weight: 197 lbs 11/09/2017 Blood Pressure 1: 130/74 Code: 8480-6 BMI: 29.3 Code: 51529-7 Heart Rate 1: 81 bpm Height: 5'8" SpO2: 98% Temperature: 36.6 (C) / 97.9 (F) Weight: 193 lbs 10/22/2017 Blood Pressure 1: 132/82 Code: 8480-6 BMI: 29.0 Code: 02697-0 Heart Rate 1: 80 bpm Height: 5'8" SpO2: 98% Weight: 191 lbs 2017 Blood Pressure 1: 142/68 Code: 8480-6 BMI: 28.7 Code: 05613-5 Heart Rate 1: 62 bpm Height: 5'8" SpO2: 98% Waist Measure (cm): 102 cm Weight: 189 lbs 07/23/2017 Blood Pressure 1: 138/84 Code: 8480-6 BMI: 29.0 Code: 96234-7 Heart Rate 1: 69 bpm Height: 5'8" SpO2: 98% Weight: 191 lbs 07/09/2017 Blood Pressure 1: 120/82 Code: 8480-6 BMI: 29.2 Code: 35230-2 Heart Rate 1: 80 bpm Height: 5'8" SpO2: 98% Weight: 192 lbs 06/29/2017 Blood Pressure 1: 140/82 Code: 8480-6 BMI: 29.5 Code: 77191-7 Heart Rate 1: 83 bpm Height: 5'8" SpO2: 98% Weight: 194 lbs 04/23/2017 Blood Pressure 1: 132/74 Code: 8480-6 BMI: 28.4 Code: 60084-6 Heart Rate 1: 78 bpm Height: 5'8" SpO2: 97% Weight: 187 lbs 04/10/2017 Blood Pressure 1: 126/68 Code: 8480-6 BMI: 29.5 Code: 89790-5 Heart Rate 1: 68 bpm Height: 5'8" SpO2: 92% Temperature: 37.5 (C) / 99.5 (F) Weight: 194 lbs 03/29/2017 Blood Pressure 1: 116/76 Code: 8480-6 BMI: 29.6 Code: 32143-9 Heart Rate 1: 61 bpm Height: 5'8" SpO2: 98% Weight: 195 lbs 02/06/2017 Blood Pressure 1: 130/74 Code: 8480-6 BMI: 30.4 Code: 67344-8 Heart Rate 1: 71 bpm Height: 5'8" SpO2: 98% Weight: 200 lbs 11/06/2016 Blood Pressure 1: 140/74 Code: 8480-6 BMI: 29.5 Code: 49461-0 Heart Rate 1: 76 bpm Height: 5'8" SpO2: 96% Weight: 194 lbs 09/27/2016 Blood Pressure 1: 138/78 Code: 8480-6 BMI: 29.6 Code: 78778-1 Heart Rate 1: 68 bpm Height: 5'8" SpO2: 97% Weight: 195 lbs 03/21/2016 Blood Pressure 1: 148/82 Code: 8480-6 BMI: 30.6 Code: 53559-1 Heart Rate 1: 67 bpm Height: 5'8" SpO2: 98% Weight: 201 lbs 02/01/2016 Blood Pressure 1: 128/86 Code: 8480-6 BMI: 30.3 Code: 76060-9 Heart Rate 1: 84 bpm Height: 5'8" SpO2: 96% Weight: 199 lbs 11/23/2015 Blood Pressure 1: 132/76 Code: 8480-6 BMI: 30.4 Code: 79360-7 Heart Rate 1: 81 bpm Height: 5'8" SpO2: 98% Weight: 200 lbs 10/14/2015 Blood Pressure 1: 120/80 Code: 8480-6 BMI: 30.4 Code: 28927-6 Heart Rate 1: 87 bpm Height: 5'8" SpO2: 97% Weight: 200 lbs 07/20/2015 Blood Pressure 1: 132/84 Code: 8480-6 BMI: 31.0 Code: 42557-2 Heart Rate 1: 78 bpm Height: 5'8" SpO2: 96% Weight: 204 lbs 07/06/2015 Blood Pressure 1: 130/78 Code: 8480-6 BMI: 31.0 Code: 77327-6 Heart Rate 1: 80 bpm Height: 5'8" SpO2: 98% Weight: 204 lbs 03/29/2015 Blood Pressure 1: 132/82 Code: 8480-6 BMI: 29.6 Code: 55354-5 Heart Rate 1: 76 bpm Height: 5'8" SpO2: 96% Weight: 195 lbs 03/08/2015 Blood Pressure 1: 126/84 Code: 8480-6 BMI: 30.2 Code: 43395-7 Heart Rate 1: 101 bpm Height: 5'8" SpO2: 98% Weight: 198 lbs 8 oz 02/02/2015 Blood Pressure 1: 132/86 Code: 8480-6 Heart Rate 1: 86 bpm SpO2: 98% Temperature: 36.6 (C) / 97.8 (F) Weight: 198 lbs 09/22/2014 Blood Pressure 1: 128/80 Code: 8480-6 BMI: 29.3 Code: 80026-1 Heart Rate 1: 85 bpm Height: 5'8" [...] data Encounters Encounter Performer Location Codes Date [id number] EST. PATIENT, LEVEL IV Diagnosis: Other acute sinusitis[ICD10: J01.80] Diagnosis: Other allergic rhinitis[ICD10: J30.89] Diagnosis: Other mucopurulent conjunctivitis, right eye[ICD10: H10.021] Sandra Parsons MD, [facility] CPT-4: 58840 07/08/2018 [id number] EST. PATIENT, LEVEL III Diagnosis: Cellulitis of right upper limb[ICD10: L03.113] Sandra Parsons MD, [facility] CPT-4: 05430 06/04/2018 ([id number]) 08953 EST. PATIENT, LEVEL IV Diagnosis: Essential (primary) hypertension[ICD10: I10] Diagnosis: Chronic atrial fibrillation[ICD10: I48.2] Diagnosis: Mixed hyperlipidemia[ICD10: E78.2] Steffany Parsons MD, [facility] CPT- 4: 55870 04/23/2018 [id number] EST. PATIENT, LEVEL IV Diagnosis: Other acute sinusitis[ICD10: J01.80] Diagnosis: Other allergic rhinitis[ICD10: J30.89] Sandra Parsons MD, [facility] CPT- 4: 91454 02/28/2018 [id number] EST. PATIENT, LEVEL IV Diagnosis: Other acute sinusitis[ICD10: J01.80] Diagnosis: Other allergic rhinitis[ICD10: J30.89] Sandra Parsons MD, [facility] CPT- 4: 09876 02/19/2018 [id number] EST. PATIENT, LEVEL III Diagnosis: Acute laryngopharyngitis[ICD10: J06.0] Diagnosis: Other allergic rhinitis[ICD10: J30.89] Sandra Parsons MD, [facility] CPT- 4: 59935 11/09/2017 ([id number]) 82389 EST. PATIENT, LEVEL IV Diagnosis: Essential (primary) hypertension[ICD10: I10] Diagnosis: Chronic atrial fibrillation[ICD10: I48.2] Steffany Parsons MD, [facility] CPT-4: 90146 10/22/2017 ([id number]) 42356 EST. PATIENT, LEVEL IV Diagnosis: Essential (primary) hypertension[ICD10: I10] Diagnosis: Chronic atrial fibrillation[ICD10: I48.2] Diagnosis: Cough[ICD10: R05] Steffany Parsons MD, [facility] CPT-4: 28003 07/23/2017 ([id number]) 41861 EST. PATIENT, LEVEL III Diagnosis: Cough[ICD10: R05] Diagnosis: Other allergic rhinitis[ICD10: J30.89] Diagnosis: Chronic obstructive pulmonary disease with (acute) exacerbation[ICD10: J44.1] Lucrecia Parsons MD, [facility] CPT-4: 33665 07/09/2017 ([id number]) 25678 EST. PATIENT, LEVEL III Diagnosis: Cough[ICD10: R05] Diagnosis: Other allergic rhinitis[ICD10: J30.89] Diagnosis: Chronic obstructive pulmonary disease with (acute) exacerbation[ICD10: J44.1] Lucrecia Parsons MD, [facility] CPT-4: 64099 06/29/2017 ([id number]) 01694 EST. PATIENT, LEVEL III Diagnosis: Essential (primary) hypertension[ICD10: I10] Diagnosis: Cough[ICD10: R05] Steffany Parsons MD, [facility] CPT-4: 16055 04/23/2017 ([id number]) 05067 EST. PATIENT, LEVEL IV Diagnosis: Hemoptysis[ICD10: R04.2] Diagnosis: Essential (primary) hypertension[ICD10: I10] Diagnosis: Chronic obstructive pulmonary disease with acute lower respiratory infection[ICD10: J44.0] Steffany Parsons MD, [facility] CPT-4: 80695 04/10/2017 [id number] EST. PATIENT, LEVEL III Diagnosis: Acute laryngopharyngitis[ICD10: J06.0] Diagnosis: Other allergic rhinitis[ICD10: J30.89] Sandra Parsons MD, [facility] CPT- 4: 46177 03/29/2017 ([id number]) 45008 EST. PATIENT, LEVEL III Diagnosis: Pneumonia due to Mycoplasma pneumoniae[ICD10: J15.7] Diagnosis: Cough[ICD10: R05] Diagnosis: Other chest pain[ICD10: R07.89] Steffany Parsons MD, [facility] CPT-4: 24472 02/06/2017 [id number] EST. PATIENT, LEVEL IV Diagnosis: Cough[ICD10: R05] Diagnosis: Shortness of breath[ICD10: R06.02] Diagnosis: Gastro-esophageal reflux disease without esophagitis[ICD10: K21.9] Sandra Parsons MD, [facility] CPT-4: 35414 11/06/2016 [id number] EST. PATIENT, LEVEL IV Diagnosis: Other allergic rhinitis[ICD10: J30.89] Diagnosis: Acute bronchitis due to other specified organisms[ICD10: J20.8] Sandra Parsons MD, [facility] CPT-4: 96763 09/27/2016 ([id number]) 11745 EST. PATIENT, LEVEL IV Diagnosis: Essential (primary) hypertension[ICD10: I10] Diagnosis: Chronic atrial fibrillation[ICD10: I48.2] Diagnosis: Encounter for therapeutic drug level monitoring[ICD10: Z51.81] Steffany Parsons MD, [facility] CPT-4: 08232 03/21/2016 ([id number]) 34935 EST. 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 CPT- 4: 71171 02/01/2016 ([id number]) 53771 EST. 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 CPT-4: 20316 11/23/2015 ([id number]) [id number] EST. PATIENT, LEVEL III Diagnosis: Allergic rhinitis due to pollen[ICD10: J30.1] Diagnosis: Actinic keratosis[ICD10: L57.0] Lucrecia Parsons MD, [facility] CPT-4: 52755 10/14/2015 ([id number]) [id number] EST. PATIENT, LEVEL IV Diagnosis: Essential (primary) hypertension[ICD10: I10] Diagnosis: Chronic atrial fibrillation[ICD10: I48.2] Steffany Parsons MD, [facility] CPT-4: 65841 07/06/2015 [id number] EST. PATIENT, LEVEL III Diagnosis: Essential (primary) hypertension[ICD10: I10] Diagnosis: Chronic atrial fibrillation[ICD10: I48.2] Diagnosis: Shortness of breath[ICD10: R06.02] Diagnosis: Melena[ICD10: K92.1] Sandra Parsons MD, [facility] CPT-4: 21453 03/29/2015 ([id number]) [id number] EST. PATIENT, LEVEL IV Diagnosis: Essential (primary) hypertension[ICD10: I10] Diagnosis: Chronic atrial fibrillation[ICD10: I48.2] Diagnosis: Cough[ICD10: R05] Steffany Parsons MD, [facility] CPT-4: 12659 03/08/2015 ([id number]) 37550 EST. PATIENT, LEVEL III Diagnosis: Other seasonal allergic rhinitis[ICD10: J30.2] Diagnosis: Other lesions of oral mucosa[ICD10: K13.79] Lucrecia Parsons MD, [facility] CPT-4: 01970 02/02/2015 ([id number]) OFFICE VISIT, NEW - LEVEL 4 Diagnosis: ESSENTIAL HYPERTENSION[ICD9: 401.9] Diagnosis: HYPERLIPIDEMIA[ICD9: 272.4] Diagnosis: ACTINIC KERATOSIS[ICD9: 702.0] Steffany Parsons MD, [facility] CPT-4: 62959 09/22/2014 Plan of Care Planned Activity Notes [...] into affected eye four times daily. 07/08/2018 Patient Education: Patient Medication Summary Completed [...] warmth, discharge. 06/04/2018 [facility]ment[phone] ([facility] Complex 06/04/2018 Patient Education: Patient [...] this time. 04/23/2018 Appointment: [phone] (15 min) Moderate 04/23/2018 Patient Education: Patient [...] allergy spray. 02/28/2018 Appointment: Sandra Tim WPtel: [phone] [place] [id number] (15 min) Moderate 02/28/2018 Patient Education: Patient [...] allergy spray. 02/19/2018 Appointment: Sandra Tim WPtel: [phone] [facility] (15 min) Moderate 02/19/2018 Patient Education: Patient [...] allergy spray. 11/09/2017 Appointment: Sandra Tim WPtel: [phone] [facility] (15 min) Moderate 11/09/2017 Patient Education: Patient [...] becoming uncontrolled. 10/22/2017 Appointment: Steffany Parsons WPtel: [phone] [phone] (15 min) Moderate 10/22/2017 Patient Education: Patient [...] spray) 07/23/2017 Appointment: Steffany Parsons WPtel: [phone] [facility] (15 min) Moderate 07/23/2017 Patient Education: Patient [...] acute changes. 07/09/2017 Appointment: Lucrecia Yeager WPtel: [phone] [phone] (30 min) Complex 07/09/2017 Patient Education: Patient [...] changes. 06/29/2017 Appointment: Lucrecia Yeager WPtel: [phone] [phone] (15 min) Moderate 06/29/2017 Patient Education: Patient Medication Summary Completed 06/29/2017 Appointment: Steffany Parsons WPtel: [facility] [place] (15 min) Moderate 04/30/2017 Visit Plan: [...] breathing treatments. 04/23/2017 Appointment: Steffany Parsons WPtel: [facility]6 [facility] (15 min) Moderate 04/23/2017 Patient Education: Patient Medication Summary Completed 04/23/2017 Visit Plan: Hemoptysis and COPD exacerbation - continue with antibiotics, rx for antifungal tablet and suspension. chest xray ordered, monitor symptoms. Pt to stop aspirin x 1 week, continue with eliquis. call if s ymptoms are not improving. rx for phenergan with codeine. 04/10/2017 Appointment: Steffany Parsons WPtel: [facility] [place]5 [facility]66[facility] (15 min) Moderate 04/10/2017 Patient Education: Patient [...] allergy spray. 03/29/2017 Appointment: Sandra Tim WPtel: [facility] [place]5 [address] (15 min) Moderate 03/29/2017 Patient Education: Patient Medication Summary Completed 03/29/2017 Visit Plan: Pneumonia - Pt has been diagnosed with pneumonia by physical exam. A chest xray has been ordered as have antibiotics. The pt is aware of the diagnosis and the need for acute treatment of this illness. Cough - rx for promethazine/codeine syrup for cough. 02/06/2017 Appointment: Steffany Parsons WPtel: [facility] [place] (15 min) Moderate 02/06/2017 Patient Education: Patient [...] not improving. 11/06/2016 Appointment: Sandra Tim WPtel: [address] [place] [address] (15 min) Moderate 11/06/2016 Patient Education: Patient [...] acutely worsen. 09/27/2016 Appointment: Sandra Tim WPtel: [facility] [place]1 [address] (30 min) Complex 09/27/2016 Patient Education: Patient [...] becoming uncontrolled. 03/21/2016 Appointment: Steffany Parsons WPtel: [facility] [place] [address] (15 min) Moderate 03/21/2016 Patient Education: Patient Medication Summary Completed 03/21/2016 Patient Education: Obesity Completed 03/21/2016 Visit Plan: Diarrhea-recent abx use-check stool for cdiff-increase probiotic to twice daily-bland diet advance as tolerated-call if symptoms do not resolve or if any worse. Patient verbalized understanding of plan. 02/01/2016 Appointment: Lucrecia Yeager WPtel: [facility] [place]1 [phone] (15 min) Moderate 02/01/2016 Patient Education: Patient Medication Summary Completed 02/01/2016 Patient Education: Obesity Completed 02/01/2016 Referral: Alexi Honeycutt [address] Info faxed Completed 11/27/2015 Visit Plan: Hypertension [...] Summary Completed 11/23/2015 Appointment: Steffany Parsons WPtel: [facility] [place]3 [facility] (15 min) Moderate 11/15/2015 Visit Plan: Allergies [...] not heal 10/14/2015 Appointment: Lucrecia Yeager WPtel: [facility] [place]3 [phone] (15 min) Moderate 10/14/2015 Patient Education: [...] concerns. 07/20/2015 Appointment: Lucrecia Yeager WPtel: [phone] [phone] (30 min) Complex 07/20/2015 Patient Education: [...] acute concerns. 07/06/2015 Appointment: Steffany Parsons WPtel: [address] [place], [place] [id number] (15 min) Moderate 07/06/2015 Patient Education: Patient [...] - pt has an upcoming appointment with field technical specialist to possibly have an ablation done. [...] Patient Education: Hypertension Completed 03/08/2015 [id number] [place] Referral Completed 02/13/2015 Visit Plan: Allergies [...] 02/02/2015 Care Plan: Referral Order SNOMED-CT : [id number] Ordered 02/02/2015 Visit Plan: Hypertension - well [...] not improving. 09/22/2014 Appointment: Steffany Parsons WPtel: [address] [place] [id number] [place] ([place] New Patient 09/22/2014 Patient Education: Patient Medication Summary Completed 09/22/2014 Patient Education: Hypertension Completed 09/22/2014 [id number] [place] Referral Initiated Instructions Comment Steroid shot today stop the keflex and start the doxycycline take a probiotic (culturelle, fitkit, or generic) twice a day while on [...] medication into affected eye four times daily. return to clinic on Sunday for recheck. Cellulitis - possible spider bite - The patient was instructed in appropriate wound care. The patient was instructed to use the antibiotic and ointment as per RX. The patient is to call for any change in symptoms, increase in size of the lesion, increase in pain, worsening redness, warmth, discharge. . Hypertension - well controlled - continue [...] work this up at this time. . Pneumonia - Pt has been diagnosed with pneumonia by physical exam. A chest xray has been ordered as have antibiotics. The pt is aware of the diagnosis and the need for acute treatment of this illness. Cough - rx for promethazine/codeine syrup for cough. . Sinusitis - Pt has acute infection [...] her DOPA paperwork for health care surrogate. Kenalog injection today in the office-if your [...] to Dr Honeycutt for evaluation and biopsy FLONASE NASAL SPRAY KENALOG INJECTION TODAY SHORT [...] drainage, or any other acute concerns. . Allergies - chronic - recommended pt [...] not improved, or if symptoms acutely worsen. appt with Dr. Honeycutt in his clinic [...] excision of the lesion on his ear claritin or stephen instead of the zyrtec [...] in the nasal steroid allergy spray. . URI - Pt advised to increase [...] in the nasal steroid allergy spray. . Hypertension - well controlled - continue [...] use on lesions, call if not improving. . Wound Instructions - Pt was instructed to keep the wound clean, wash with antibacterial soap, use triple antibiotic ointment, call if redness, pustular drainage, or any other acute concerns. . Wound Instructions - Pt was instructed to keep the wound clean, wash with antibacterial soap, use triple antibiotic ointment, call if redness, pustular drainage, or any other acute concerns. . Hospital follow up - pt was [...] - pt has an upcoming appointment with field technical specialist to possibly have an ablation done. [...] their heart rate is becoming uncontrolled. . COPD EXACERBATION - COPD is a [...] is stable, monitor for acute changes. . Hemoptysis and COPD exacerbation - continue with antibiotics, rx for antifungal tablet and suspension. chest xray ordered, monitor symptoms. Pt to stop aspirin x 1 week, continue with eliquis. call if symptoms are not improving. rx for phenergan with codeine. use flonase before you go outside to [...] their heart rate is becoming uncontrolled. . Hypertension - well controlled - continue [...]
--- OUTSIDE RECORDS SUMMARY | 2018-08-31 19:03 | XMS REPORT | CCD ---
Author Author [facility] Organization [facility] Address [address] [place] [address] Phone Care Team Providers Care Rn Neurology Name Role Phone PP Unavailable CCM Unavailable Summary Purpose Interface Exchange Insurance Providers Payer name Policy type / Coverage type Covered constitution party ID Effective Begin Date Effective End Date [facility] Commercial Insurance [id number] Unknown Unknown Family history Father Diagnosis Age At Onset Prostate Cancer Unknown Runs in the family Diagnosis Age At Onset Hypertension Unknown Mother Diagnosis Age At Onset No Family Disease Entered N/A Social History Social History Element Codes Description Effective Dates Marital status Unknown Mary 02/06/2017 Number of children Unknown 5 09/22/[address]: 0971363 Quit over 10 years ago 09/22/[address]: 538860839 Never drinks alcohol 09/22/2014 Allergies, Adverse Reactions, Alerts Substance Reaction Codes Entered Date Inactivated Date Status * NO KNOWN DRUG ALLERGIES Unknown 09/22/2014 No Inactive Date Active Past Medical History Illness Codes Condition Status Onset Date Resolved Date Cellulitis of right upper limb ICD-9: 682.4 ICD-10: L03.113 Active 06/04/2018 Unknown Chronic atrial fibrillation ICD-9: 427.31 ICD-10: I48.2 Active 03/20/2016 Unknown Essential (primary) hypertension ICD-9: 401.9 ICD-10: I10 Active 09/21/2014 Unknown Mixed hyperlipidemia ICD- 9: 272.2 ICD-10: E78.2 Active 04/23/2018 Unknown Other acute sinusitis ICD- 9: 461.8 ICD-10: J01.80 Active 02/19/2018 Unknown Other allergic rhinitis ICD-9: 477.8 ICD-10: J30.89 Active 09/27/2016 Unknown Allergic rhinitis due to pollen ICD-9: [...] Problems Condition Codes Effective Dates Condition Status Cellulitis of right upper limb ICD-9: 682.4 ICD-10: L03.113 06/04/2018 Active Chronic atrial fibrillation ICD-9: 427.31 ICD-10: I48.2 03/20/2016 Active Essential (primary) hypertension ICD-9: 401.9 ICD-10: I10 09/21/2014 Active Mixed hyperlipidemia ICD- 9: 272.2 ICD-10: E78.2 04/23/2018 Active Other acute sinusitis ICD- 9: 461.8 ICD-10: J01.80 02/19/2018 Active Other allergic rhinitis ICD-9: 477.8 ICD-10: J30.89 09/27/2016 Active Allergic rhinitis due to pollen ICD-9: [...] Start Date Stop Date Status Fill Instructions Keflex 500 mg capsule RxNorm: 572474 1 Capsule(s) PO TID 07/02/2018 07/08/2018 Active dapsone 100 mg tablet RxNorm: 431209 1 Tablet(s) PO daily 06/04/2018 06/10/2018 Inactive doxycycline hyclate 100 mg capsule RxNorm: 8602154 1 Capsule(s) PO BID 06/04/2018 06/13/2018 Inactive Lasix 40 mg tablet RxNorm: 408172 TAKE 1 TABLET DAILY 04/22/2018 No Stop Date Active prednisone 20 mg tablet RxNorm: 421418 2 Tablet(s) PO daily 02/28/2018 03/04/2018 Inactive START TOMORROW Keflex 500 mg capsule RxNorm: 902797 1 Capsule(s) PO TID 02/28/2018 03/09/2018 Inactive ceftriaxone 500 mg solution for injection RxNorm: 3108307 Inj 02/28/2018 02/28/2018 Inactive Kenalog 40 mg/mL suspension for injection RxNorm: 6261638 Milliliter(s) Inj 02/26/2018 02/26/2018 Inactive Keflex 500 mg capsule RxNorm: 595793 1 Capsule(s) PO TID 02/19/2018 02/25/2018 Inactive Klor-Con M20 mEq tablet,extended release RxNorm: 6133789 TAKE 1 TABLET EVERY MORNING 12/04/2017 No Stop Date Active prednisone 20 mg tablet RxNorm: 249378 2 Tablet(s) PO daily 11/16/2017 11/20/2017 Inactive START TOMORROW Zithromax Z-Mau 250 mg tablet RxNorm: 746135 1 Tablet(s) PO daily 11/16/2017 11/20/2017 Inactive Zithromax Z-Mau 250 mg tablet RxNorm: 694987 1 Tablet(s) PO daily 11/16/2017 11/15/2017 Inactive Keflex 500 mg capsule RxNorm: 415475 1 Capsule(s) PO TID 11/09/2017 11/15/2017 Inactive Zithromax 250 mg tablet RxNorm: 283902 [address] day and 1 tab po on day 2-5 Tablet(s) PO 08/30/2017 09/03/2017 Inactive zpack x 1 doxycycline hyclate 100 mg tablet RxNorm: 579249 1 Tablet(s) PO BID 07/09/2017 07/15/2017 Inactive prednisone 20 mg tablet RxNorm: 617095 2 Tablet(s) PO daily 06/29/2017 07/01/2017 Inactive START TOMORROW Kenalog 40 mg/mL suspension for injection RxNorm: 2460610 Milliliter(s) Inj 06/29/2017 06/29/2017 Inactive Lasix 40 mg tablet RxNorm: 096242 TAKE 1 TABLET DAILY 04/24/2017 04/21/2018 Inactive Diflucan 150 mg tablet RxNorm: 250700 1 Tablet(s) PO daily 04/10/2017 04/16/2017 Inactive Bactrim DS 800 mg-160 mg tablet RxNorm: 135209 1 Tablet(s) PO BID 04/10/2017 04/16/2017 Inactive nystatin 100,000 unit/mL oral suspension RxNorm: 555138 5 Milliliter(s) PO QID 04/10/2017 04/19/2017 Inactive cefdinir 300 mg capsule RxNorm: 011462 1 Capsule(s) PO BID 03/28/2017 04/06/2017 Inactive cefdinir 300 mg capsule RxNorm: 059693 1 Capsule(s) PO BID 02/06/2017 02/15/2017 Inactive ceftriaxone 500 mg solution for injection RxNorm: 6981827 Inj 02/06/2017 02/06/2017 Inactive omeprazole 20 mg tablet,delayed release RxNorm: 888542 1 Tablet(s) PO daily 11/06/2016 12/05/2016 Inactive Phenergan with Codeine Syrup RxNorm: 5 Milliliter(s) PO QID as needed 10/30/2016 No Stop Date Active Tessalon Perles 100 mg capsule RxNorm: 312244 1-2 Capsule(s) PO TID as needed cough 10/30/2016 11/08/2016 Inactive Klor-Con M20 mEq tablet,extended release RxNorm: 1171122 TAKE 1 TABLET EVERY MORNING 10/26/2016 12/03/2017 Inactive ceftriaxone 500 mg solution for injection RxNorm: 6363933 1 Milliliter(s) Inj 09/27/2016 09/27/2016 Inactive Phenergan with Codeine Syrup RxNorm: 5 Milliliter(s) PO QID as needed 09/27/2016 10/29/2016 Inactive Tessalon Perles 100 mg capsule RxNorm: 264327 1-2 Capsule(s) PO TID as needed cough 09/27/2016 09/29/2016 Inactive Kenalog 40 mg/mL suspension for injection RxNorm: 5706557 1 Milliliter(s) Inj 09/27/2016 09/27/2016 Inactive Flagyl 500 mg tablet RxNorm: 185321 1 Tablet(s) PO TID 2016 08/05/2016 Inactive Lasix 40 mg tablet RxNorm: 917934 TAKE 1 TABLET DAILY 07/26/2016 04/23/2017 Inactive Zithromax 250 mg tablet RxNorm: 635909 [address] day and 1 tab po on day 2-5 Tablet(s) PO 03/28/2016 03/27/2016 Inactive zpack x 1 Zithromax 250 mg tablet RxNorm: 324957 [address] day and 1 tab po on day 2-5 Tablet(s) PO 03/28/2016 04/01/2016 Inactive zpack x 1 Flagyl 500 mg tablet RxNorm: 422648 1 Tablet(s) PO TID 02/07/2016 02/06/2016 Inactive Flagyl 500 mg tablet RxNorm: 249315 1 Tablet(s) PO TID 02/07/2016 02/16/2016 Inactive Zyrtec-D 5 mg-120 mg tablet,extended release RxNorm: 1309563 1 Tablet(s) PO daily as needed allergies 11/23/2015 No Stop Date Active Imodium A-D 2 mg tablet RxNorm: 698181 1/2 Tablet(s) PO daily 11/23/2015 No Stop Date Active Mucinex 600 mg tablet, extended release RxNorm: 537011 1 Tablet(s) PO BID as needed 11/23/2015 01/21/2016 Inactive Lasix 40 mg tablet RxNorm: TAKE 1 TABLET DAILY 11/01/2015 07/25/2016 Inactive Klor-Con M20 mEq tablet,extended release RxNorm: 4917643 TAKE 1 TABLET EVERY MORNING 11/01/2015 10/25/2016 Inactive Flonase Allergy Relief 50 mcg/actuation nasal spray,suspension RxNorm: 2 [place] NASAL daily 07/20/2015 No Stop Date Active Kenalog 40 mg/mL suspension for injection RxNorm: 2491033 Milliliter(s) Inj 02/02/2015 02/02/2015 Inactive Crestor 5 mg tablet RxNorm: 226385 1/2 Tablet(s) PO daily 10/05/2014 09/29/2015 Inactive metoprolol tartrate 100 mg tablet RxNorm: 890186 1 Tablet(s) PO BID 10/05/2014 12/28/2015 Inactive Plavix 75 mg tablet RxNorm: 849276 1 Tablet(s) PO daily 10/05/2014 03/07/2015 Inactive Klor-Con M20 mEq tablet,extended release RxNorm: 858343 1 Tablet(s) PO QAM 10/05/2014 10/31/2015 Inactive Lasix 40 mg tablet RxNorm: 146167 1 Tablet(s) PO daily 10/05/2014 10/31/2015 Inactive Efudex 5 % topical cream RxNorm: 371544 1 Application TOP BID x 2 weeks, allow healing x 1 -2 weeks, then reuse 10/05/2014 07/05/2015 Inactive Pradaxa 150 mg capsule RxNorm: 9407462 1 Capsule(s) PO BID 10/05/2014 04/09/2017 Inactive amlodipine 10 mg tablet RxNorm: 990814 1/2 Tablet(s) PO QAM 10/05/2014 07/05/2015 Inactive Efudex 5 % topical cream RxNorm: 763538 1 Application TOP BID x 2 weeks, allow healing x 1 -2 weeks, then reuse 09/22/2014 10/04/2014 Inactive Klor-Con M20 mEq tablet,extended release RxNorm: 883916 1 Tablet(s) PO QAM 09/22/2014 10/04/2014 Inactive Lasix 40 mg tablet RxNorm: 1 Tablet(s) PO daily 09/22/2014 10/04/2014 Inactive Cartia XT 180 mg capsule,extended release RxNorm: 979927 2 Capsule(s) PO daily No Start Date Active cetirizine 10 mg tablet RxNorm: 7497459 1 Tablet(s) PO daily at lunch No Start Date Active Canasa 1,000 mg rectal suppository RxNorm: 511809 1 Suppository RTL [facility] Dr seymour No Start Date Active Lialda 1.2 gram tablet,delayed release RxNorm: 511252 1 Tablet(s) PO QHS -Prescried by Dr. Seymour No Start Date Active Centrum Silver oral RxNorm: 76171 oral No Start Date Active Eliquis 5 mg tablet RxNorm: 9474068 1 Tablet(s) PO BID Dr Avila No Start Date Active aspirin 81 mg capsule,delayed release RxNorm: 461667 1 Capsule(s) PO daily No Start Date Active losartan 25 mg tablet RxNorm: 005358 1 Tablet(s) PO QPM at supper No Start Date Active digoxin 250 mcg tablet RxNorm: 255337 1 Tablet(s) PO daily No Start Date Active Vitamin D3 5,000 unit tablet RxNorm: 477423 1 Tablet(s) PO BID No Start Date Active Probiotic oral RxNorm: 6205 oral No Start Date Active Glucosamine Chondroit Complx Advan oral RxNorm: oral No Start Date Active Plavix 75 mg tablet RxNorm: 016802 1 Tablet(s) PO daily No Start Date 10/04/2014 Inactive Klor-Con M20 mEq tablet,extended release RxNorm: 587874 1 Tablet(s) PO QAM No Start Date 09/21/2014 Inactive Imodium oral RxNorm: oral No Start Date 11/22/2015 Inactive Lasix 40 mg tablet RxNorm: 053420 1 Tablet(s) PO daily No Start Date 09/21/2014 Inactive amlodipine 10 mg tablet RxNorm: 002553 1/2 Tablet(s) PO QAM No Start Date 10/04/2014 Inactive Crestor 5 mg tablet RxNorm: 577836 1/2 Tablet(s) PO daily No Start Date 10/04/2014 Inactive Flonase Allergy Relief 50 mcg/actuation nasal spray,suspension RxNorm: 1 [place] NASAL daily No Start Date 07/19/2015 Inactive metoprolol tartrate 100 mg tablet RxNorm: 208590 1 Tablet(s) PO BID No Start Date 10/04/2014 Inactive Probiotic 4X oral RxNorm: 6887669 oral No Start Date 07/06/2015 Inactive Pradaxa 150 mg capsule RxNorm: 6320269 1 Capsule(s) PO BID No Start Date 10/04/2014 Inactive Medication Administered Medication Codes Instructions Start Date Status ceftriaxone 500 mg solution for injection RxNorm: 4953334 02/28/2018 No longer Active Kenalog 40 mg/mL suspension for injection RxNorm: 5646799 Milliliter 02/26/2018 No longer Active Kenalog 40 mg/mL suspension for injection RxNorm: 8568736 Milliliter 06/29/2017 No longer Active ceftriaxone 500 mg solution for injection RxNorm: 2157184 02/06/2017 No longer Active Kenalog 40 mg/mL suspension for injection RxNorm: 2194996 1Milliliter 09/27/2016 No longer Active ceftriaxone 500 mg solution for injection RxNorm: 8551428 1Milliliter 09/27/2016 No longer Active Kenalog 40 mg/mL suspension for injection RxNorm: 1284236 Milliliter 02/02/2015 No longer Active Immunizations Vaccine Codes Date Status SHINGARIX CVX: 121 01/07/2018 completed Influenza CVX: 141 12/26/2017 completed Pneumococcal CVX: 133 12/26/2017 completed Influenza CVX: 141 01/10/2017 completed Influenza CVX: 141 01/07/2016 completed Influenza CVX: 141 12/01/2013 completed Zoster CVX: 121 04/02/2011 completed Pneumococcal CVX: 33 09/01/2007 completed Assessments Condition Codes Effective Dates Cellulitis of right upper limb ICD-10: L03.113 ICD-9: 682.4 06/04/2018 Chronic atrial fibrillation ICD-10: I48.2 ICD-9: 427.31 04/23/2018 Mixed hyperlipidemia ICD-10: E78.2 ICD-9: 272.2 04/23/2018 Essential (primary) hypertension ICD-10: I10 ICD-9: 401.9 04/23/2018 Other allergic rhinitis ICD-10: J30.89 ICD-9: 477.8 02/28/2018 Other acute sinusitis ICD-10: J01.80 ICD-9: 461.8 02/28/2018 Allergic rhinitis due to pollen ICD-10: J30.1 [...] Visit Reason For Visit Effective Dates Notes bite to the hand 06/04/2018 voice change [...] 31.4 pg 10/23/2017 Cbc With Differential Ord2 [place]% 8.5 % 10/23/2017 Cbc With Differential Ord2 [...] 2.73 K/ul 10/23/2017 Cbc With Differential Ord2 [place] ABS# 0.9 K/ul 10/23/2017 Cbc With Differential Ord2 Eos ABS# 0.6 K/ul 10/23/2017 Cbc With Differential Ord2 Baso ABS# 0.0 K/ul 10/23/2017 Digoxin Ord9 DIGOXIN 1.0 NG/ML 10/23/2017 Lipid Ord30 CHOL 108 mg/dL 10/23/2017 Lipid Ord30 HDL 39.0 mg/dl 10/23/2017 Lipid Ord30 TRIG 175 mg/dL 10/23/2017 Lipid Ord30 LDL 34 mg/dL 10/23/2017 Lipid Ord30 C/HDL 2.8 Ratio 10/23/2017 Comp Metabolic Dja475 NA 140 mEq/L 10/23/2017 Comp Metabolic Fkq069 K 4.1 mEq/L 10/23/2017 Comp Metabolic Zpr731 CL 102 mEq/L 10/23/2017 Comp Metabolic Xzu369 CO2 30.0 mEq/L 10/23/2017 Comp Metabolic Bqz026 ANION GAP 12 10/23/2017 Comp Metabolic Nwe261 GLUCOSE 124 mg/dL 10/23/2017 Comp Metabolic Ywk513 Creat 1.1 mg/dL 10/23/2017 Comp Metabolic Knq814 eGFR 71 ml/min/1.73m2 10/23/2017 Comp Metabolic Cil019 BUN 11 mg/dL 10/23/2017 Comp Metabolic Oua436 B/C Ratio 10.2 Ratio 10/23/2017 Comp Metabolic Xxf659 CALCIUM 9.3 mg/dL 10/23/2017 Comp Metabolic Tcq760 ALK PHOS 72 U/L 10/23/2017 Comp Metabolic Qbv002 AST(SGOT) 21 U/L 10/23/2017 Comp Metabolic Bgk275 ALT(SGPT) 17 U/L 10/23/2017 Comp Metabolic Ynn805 BILI T 0.8 mg/dL 10/23/2017 Comp Metabolic Zea918 ALBUMIN 4.3 g/dL 10/23/2017 Comp Metabolic Lti640 TPRO 7.4 g/dL 10/23/2017 Comp Metabolic Vdg905 GLOB 3.1 g/dL 10/23/2017 Comp Metabolic Enh301 A/G Ratio 1.4 Ratio 10/23/2017 Comp Metabolic Zqw595 Osmo 280 mOsmo 10/23/2017 Tsh Ord6 TSH (3rd IS) 3.37 uIU/mL 10/23/2017 Test(s) Not Perfromed PRK2976 Test(s) Not Performed Test(s) Not Performed. See Below: 10/23/2017 Test(s) Not Perfromed [id number] TEST NAME PSA 10/23/2017 Test(s) Not Perfromed [id number] Rejection Reason PSA Performed yearly at Dr. Stone's [facility] 10/23/2017 Test(s) Not Perfromed [id number] COMMENT N/A 10/23/2017 Test(s) Not Perfromed [id number] Engineering Instructor Gianhank Elizondot 10/23/2017 Comp Metabolic Hux225 NA 137 mEq/L 03/21/2016 Comp Metabolic Kbk097 K 4.6 mEq/L 03/21/2016 Comp Metabolic Gcr128 CL 101 mEq/L 03/21/2016 Comp Metabolic Muu931 CO2 31.0 mEq/L 03/21/2016 Comp Metabolic Jgn812 ANION GAP 10 03/21/2016 Comp Metabolic Zpk949 GLUCOSE 106 mg/dL 03/21/2016 Comp Metabolic Rlb950 Creat 1.1 mg/dL 03/21/2016 Comp Metabolic Usj297 eGFR 69 ml/min/1.73m2 03/21/2016 Comp Metabolic Irv844 BUN 11 mg/dL 03/21/2016 Comp Metabolic Csd834 B/C Ratio 9.9 Ratio 03/21/2016 Comp Metabolic Gqy125 CALCIUM 9.5 mg/dL 03/21/2016 Comp Metabolic Sdb298 ALK PHOS 88 U/L 03/21/2016 Comp Metabolic Lek798 AST(SGOT) 21 U/L 03/21/2016 Comp Metabolic Cfk002 ALT(SGPT) 15 U/L 03/21/2016 Comp Metabolic Piz579 BILI T 0.7 mg/dL 03/21/2016 Comp Metabolic Mec674 ALBUMIN 4.2 g/dL 03/21/2016 Comp Metabolic Vqh553 TPRO 7.9 g/dL 03/21/2016 Comp Metabolic Nan158 GLOB 3.7 g/dL 03/21/2016 Comp Metabolic Eld840 A/G Ratio 1.1 Ratio 03/21/2016 Comp Metabolic Zzt006 Osmo 274 mOsmo 03/21/2016 Lipid Ord30 CHOL [...] 31.3 pg 03/21/2016 Cbc With Differential Ord2 [place]% 10.3 % 03/21/2016 Cbc With Differential Ord2 [...] 2.51 K/ul 03/21/2016 Cbc With Differential Ord2 [place] ABS# 1.2 K/ul 03/21/2016 Cbc With Differential Ord2 Eos ABS# 0.7 K/ul 03/21/2016 Cbc With Differential Ord2 Baso ABS# 0.0 K/ul 03/21/2016 Clostridium Diff Tox A/B Gxw451 Cdiff Negative 02/01/2016 Culture Mrsa [id number] MRSA CULTURE SEE NOTES 04/09/2015 Digoxin Ord9 [...] Ord9 DIGOXIN 1.0 NG/ML 03/11/2015 Comp Metabolic Vjq335 NA 142 mEq/L 03/11/2015 Comp Metabolic Bok572 K 4.4 mEq/L 03/11/2015 Comp Metabolic Gja082 CL 107 mEq/L 03/11/2015 Comp Metabolic Jog544 CO2 27.0 mEq/L 03/11/2015 Comp Metabolic Qww376 ANION GAP 12 03/11/2015 Comp Metabolic Suv806 GLUCOSE 106 mg/dL 03/11/2015 Comp Metabolic Vif227 Creat 1.1 mg/dL 03/11/2015 Comp Metabolic Jtv560 eGFR 68 ml/min/1.73m2 03/11/2015 Comp Metabolic Yzi232 BUN 16 mg/dL 03/11/2015 Comp Metabolic Hfh315 B/C Ratio 14.3 Ratio 03/11/2015 Comp Metabolic Jkd586 CALCIUM 9.5 mg/dL 03/11/2015 Comp Metabolic Ohj820 ALK PHOS 82 U/L 03/11/2015 Comp Metabolic Hsf914 AST(SGOT) 20 U/L 03/11/2015 Comp Metabolic Mau639 ALT(SGPT) 17 U/L 03/11/2015 Comp Metabolic Kaz489 BILI T 0.4 mg/dL 03/11/2015 Comp Metabolic Acs232 ALBUMIN 4.0 g/dL 03/11/2015 Comp Metabolic Kyh468 TPRO 6.9 g/dL 03/11/2015 Comp Metabolic Cjc708 GLOB 2.9 g/dL 03/11/2015 Comp Metabolic Rdq710 A/G Ratio 1.4 Ratio 03/11/2015 Comp Metabolic Diq034 Osmo 285 mOsmo 03/11/2015 Metabolic Ord15 NA [...] of Systems System Result Effective Dates Constitutional No recent illness 06/04/2018 Constitutional No [...] Result Effective Dates Notes Full Exam - Dermatology Constitutional general appearance [...] inspection of skin Location: face 04/23/2018 right judaism, forehead, left judaism - irrirated actinic keratosis Full Exam - [...] inspection of skin Location: face 10/22/2017 right judaism, forehead, left judaism - irrirated actinic keratosis Full Exam - [...] inspection of skin Location: face 03/21/2016 right judaism, forehead, left judaism - irrirated actinic keratosis Full Exam - [...] inspection of skin Location: face 11/23/2015 right judaism, left judaism - irrirated actinic keratosis Full Exam - [...] inspection of skin Location: face 07/06/2015 right judaism, forehead, left judaism - irrirated actinic keratosis Full Exam - [...] on face, scalp Procedures Procedure Codes Date THER/PROPH/DIAG INJ SC/IM CPT-4: 68491 02/28/2018 ROCEPHIN, PER 250 MG CPT- 4: J0696 02/28/2018 THER/PROPH/DIAG INJ SC/IM CPT-4: 87115 02/26/2018 TRIAMCINOLONE ACET INJ NOS CPT-4: J3301 02/26/2018 PPPS, SUBSEQ VISIT CPT- 4: G0439 2017 TRIAMCINOLONE ACET INJ NOS CPT-4: J3301 06/29/2017 THER/PROPH/DIAG INJ SC/IM CPT-4: 16300 02/06/2017 ROCEPHIN, PER 250 MG CPT- 4: J0696 02/06/2017 ROCEPHIN, PER 250 MG CPT- 4: J0696 09/27/2016 TRIAMCINOLONE ACET INJ NOS CPT-4: J3301 09/27/2016 THER/PROPH/DIAG INJ SC/IM CPT-4: 55844 09/27/2016 DESTRUCT PREMALG LESION CPT-4: 57017 10/14/2015 DESTRUCT PREMALG LESION CPT-4: 37704 07/20/2015 DESTRUCT PREMALG LESION CPT-4: 53207 07/06/2015 DESTRUCT PREMALG LES 2-14 CPT-4: 61799 07/06/2015 TRIAMCINOLONE ACET INJ NOS CPT-4: J3301 02/02/2015 Vital Signs Date Vital 06/04/2018 Blood Pressure 1: 130/62 Code: 8480-6 BMI: 30.6 Code: 24000-7 Heart Rate 1: 88 bpm Height: 5'8" SpO2: 97% Weight: 201 lbs 04/23/2018 Blood Pressure 1: 130/72 Code: 8480-6 BMI: 30.1 Code: 36683-6 Heart Rate 1: 74 bpm Height: 5'8" SpO2: 97% Weight: 198 lbs 02/28/2018 Blood Pressure 1: 124/72 Code: 8480-6 BMI: 30.0 Code: 51842-9 Heart Rate 1: 69 bpm Height: 5'8" SpO2: 97% Temperature: 36.6 (C) / 97.8 (F) Weight: 197 lbs 02/19/2018 Blood Pressure 1: 128/76 Code: 8480-6 BMI: 30.0 Code: 04831-3 Heart Rate 1: 66 bpm Height: 5'8" SpO2: 97% Weight: 197 lbs 11/09/2017 Blood Pressure 1: 130/74 Code: 8480-6 BMI: 29.3 Code: 61364-2 Heart Rate 1: 81 bpm Height: 5'8" SpO2: 98% Temperature: 36.6 (C) / 97.9 (F) Weight: 193 lbs 10/22/2017 Blood Pressure 1: 132/82 Code: 8480-6 BMI: 29.0 Code: 81107-6 Heart Rate 1: 80 bpm Height: 5'8" SpO2: 98% Weight: 191 lbs 2017 Blood Pressure 1: 142/68 Code: 8480-6 BMI: 28.7 Code: 69878-6 Heart Rate 1: 62 bpm Height: 5'8" SpO2: 98% Waist Measure (cm): 102 cm Weight: 189 lbs 07/23/2017 Blood Pressure 1: 138/84 Code: 8480-6 BMI: 29.0 Code: 26012-2 Heart Rate 1: 69 bpm Height: 5'8" SpO2: 98% Weight: 191 lbs 07/09/2017 Blood Pressure 1: 120/82 Code: 8480-6 BMI: 29.2 Code: 40568-9 Heart Rate 1: 80 bpm Height: 5'8" SpO2: 98% Weight: 192 lbs 06/29/2017 Blood Pressure 1: 140/82 Code: 8480-6 BMI: 29.5 Code: 58706-0 Heart Rate 1: 83 bpm Height: 5'8" SpO2: 98% Weight: 194 lbs 04/23/2017 Blood Pressure 1: 132/74 Code: 8480-6 BMI: 28.4 Code: 81260-2 Heart Rate 1: 78 bpm Height: 5'8" SpO2: 97% Weight: 187 lbs 04/10/2017 Blood Pressure 1: 126/68 Code: 8480-6 BMI: 29.5 Code: 60496-5 Heart Rate 1: 68 bpm Height: 5'8" SpO2: 92% Temperature: 37.5 (C) / 99.5 (F) Weight: 194 lbs 03/29/2017 Blood Pressure 1: 116/76 Code: 8480-6 BMI: 29.6 Code: 47111-1 Heart Rate 1: 61 bpm Height: 5'8" SpO2: 98% Weight: 195 lbs 02/06/2017 Blood Pressure 1: 130/74 Code: 8480-6 BMI: 30.4 Code: 57563-5 Heart Rate 1: 71 bpm Height: 5'8" SpO2: 98% Weight: 200 lbs 11/06/2016 Blood Pressure 1: 140/74 Code: 8480-6 BMI: 29.5 Code: 70674-9 Heart Rate 1: 76 bpm Height: 5'8" SpO2: 96% Weight: 194 lbs 09/27/2016 Blood Pressure 1: 138/78 Code: 8480-6 BMI: 29.6 Code: 49813-6 Heart Rate 1: 68 bpm Height: 5'8" SpO2: 97% Weight: 195 lbs 03/21/2016 Blood Pressure 1: 148/82 Code: 8480-6 BMI: 30.6 Code: 40726-8 Heart Rate 1: 67 bpm Height: 5'8" SpO2: 98% Weight: 201 lbs 02/01/2016 Blood Pressure 1: 128/86 Code: 8480-6 BMI: 30.3 Code: 77164-6 Heart Rate 1: 84 bpm Height: 5'8" SpO2: 96% Weight: 199 lbs 11/23/2015 Blood Pressure 1: 132/76 Code: 8480-6 BMI: 30.4 Code: 87584-4 Heart Rate 1: 81 bpm Height: 5'8" SpO2: 98% Weight: 200 lbs 10/14/2015 Blood Pressure 1: 120/80 Code: 8480-6 BMI: 30.4 Code: 07230-0 Heart Rate 1: 87 bpm Height: 5'8" SpO2: 97% Weight: 200 lbs 07/20/2015 Blood Pressure 1: 132/84 Code: 8480-6 BMI: 31.0 Code: 24304-0 Heart Rate 1: 78 bpm Height: 5'8" SpO2: 96% Weight: 204 lbs 07/06/2015 Blood Pressure 1: 130/78 Code: 8480-6 BMI: 31.0 Code: 49600-2 Heart Rate 1: 80 bpm Height: 5'8" SpO2: 98% Weight: 204 lbs 03/29/2015 Blood Pressure 1: 132/82 Code: 8480-6 BMI: 29.6 Code: 34608-9 Heart Rate 1: 76 bpm Height: 5'8" SpO2: 96% Weight: 195 lbs 03/08/2015 Blood Pressure 1: 126/84 Code: 8480-6 BMI: 30.2 Code: 17660-6 Heart Rate 1: 101 bpm Height: 5'8" SpO2: 98% Weight: 198 lbs 8 oz 02/02/2015 Blood Pressure 1: 132/86 Code: 8480-6 Heart Rate 1: 86 bpm SpO2: 98% Temperature: 36.6 (C) / 97.8 (F) Weight: 198 lbs 09/22/2014 Blood Pressure 1: 128/80 Code: 8480-6 BMI: 29.3 Code: 07078-6 Heart Rate 1: 85 bpm Height: 5'8" SpO2: 98% Weight: 193 lbs Functional Status No Functional Status data History of Present Illness Symptom Name Status Result Effective Date Notes Location on the right 06/04/2018 None Quality [...] data Encounters Encounter Performer Location Codes Date 91950 EST. PATIENT, LEVEL III Diagnosis: Cellulitis of right upper limb[ICD10: L03.113] Sandra Parsons MD, [facility] CPT-4: 07620 06/04/2018 [id number]) [id number] EST. PATIENT, LEVEL IV Diagnosis: Essential (primary) hypertension[ICD10: I10] Diagnosis: Chronic atrial fibrillation[ICD10: I48.2] Diagnosis: Mixed hyperlipidemia[ICD10: E78.2] Steffany Parsons MD, [facility] CPT- 4: 36041 04/23/2018 [id number] EST. PATIENT, LEVEL IV Diagnosis: Other acute sinusitis[ICD10: J01.80] Diagnosis: Other allergic rhinitis[ICD10: J30.89] Sandra Parsons MD, [facility] CPT- 4: 10480 02/28/2018 [id number] EST. PATIENT, LEVEL IV Diagnosis: Other acute sinusitis[ICD10: J01.80] Diagnosis: Other allergic rhinitis[ICD10: J30.89] Sandra Parsons MD, [facility] CPT- 4: 32955 02/19/2018 [id number] EST. PATIENT, LEVEL III Diagnosis: Acute laryngopharyngitis[ICD10: J06.0] Diagnosis: Other allergic rhinitis[ICD10: J30.89] Sandra Parsons MD, [facility] CPT- 4: 03114 11/09/2017 ([id number]) 74549 EST. PATIENT, LEVEL IV Diagnosis: Essential (primary) hypertension[ICD10: I10] Diagnosis: Chronic atrial fibrillation[ICD10: I48.2] Steffany Parsons MD, [facility] CPT-4: 71291 10/22/2017 ([id number]) 75940 EST. PATIENT, LEVEL IV Diagnosis: Essential (primary) hypertension[ICD10: I10] Diagnosis: Chronic atrial fibrillation[ICD10: I48.2] Diagnosis: Cough[ICD10: R05] Steffany Parsons MD, [facility] CPT-4: 06804 07/23/2017 ([id number]) 33479 EST. PATIENT, LEVEL III Diagnosis: Cough[ICD10: R05] Diagnosis: Other allergic rhinitis[ICD10: J30.89] Diagnosis: Chronic obstructive pulmonary disease with (acute) exacerbation[ICD10: J44.1] Lucrecia Parsons MD, [facility] CPT-4: 20300 07/09/2017 ([id number]) [id number] EST. PATIENT, LEVEL III Diagnosis: Cough[ICD10: R05] Diagnosis: Other allergic rhinitis[ICD10: J30.89] Diagnosis: Chronic obstructive pulmonary disease with (acute) exacerbation[ICD10: J44.1] Lucrecia Parsons MD, [facility] CPT-4: 02078 06/29/2017 ([id number]) 17581 EST. PATIENT, LEVEL III Diagnosis: Essential (primary) hypertension[ICD10: I10] Diagnosis: Cough[ICD10: R05] Steffany Parsons MD, [facility] CPT-4: 53543 04/23/2017 ([id number]) [id number] EST. PATIENT, LEVEL IV Diagnosis: Hemoptysis[ICD10: R04.2] Diagnosis: Essential (primary) hypertension[ICD10: I10] Diagnosis: Chronic obstructive pulmonary disease with acute lower respiratory infection[ICD10: J44.0] Steffany Parsons MD, [facility] CPT-4: 28274 04/10/2017 53461 EST. PATIENT, LEVEL III Diagnosis: Acute laryngopharyngitis[ICD10: J06.0] Diagnosis: Other allergic rhinitis[ICD10: J30.89] Sandra Parsons MD, [facility] CPT- 4: 70418 03/29/2017 ([id number]) 49463 EST. PATIENT, LEVEL III Diagnosis: Pneumonia due to Mycoplasma pneumoniae[ICD10: J15.7] Diagnosis: Cough[ICD10: R05] Diagnosis: Other chest pain[ICD10: R07.89] Steffany Parsons MD, [facility] CPT-4: 65906 02/06/2017 88869 EST. PATIENT, LEVEL IV Diagnosis: Cough[ICD10: R05] Diagnosis: Shortness of breath[ICD10: R06.02] Diagnosis: Gastro-esophageal reflux disease without esophagitis[ICD10: K21.9] Sandra Parsons MD, [facility] CPT-4: 26031 11/06/2016 00231 EST. PATIENT, LEVEL IV Diagnosis: Other allergic rhinitis[ICD10: J30.89] Diagnosis: Acute bronchitis due to other specified organisms[ICD10: J20.8] Sandra Parsons MD, [facility] CPT-4: 97860 09/27/2016 ([id number]) 74308 EST. PATIENT, LEVEL IV Diagnosis: Essential (primary) hypertension[ICD10: I10] Diagnosis: Chronic atrial fibrillation[ICD10: I48.2] Diagnosis: Encounter for therapeutic drug level monitoring[ICD10: Z51.81] Steffany Parsons MD, [facility] CPT-4: 93418 03/21/2016 ([id number]) 78378 EST. 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 PATIENT, LEVEL III Diagnosis: Allergic rhinitis due to pollen[ICD10: J30.1] Diagnosis: Actinic keratosis[ICD10: L57.0] Lucrecia Parsons MD [facility] CPT-4: 96356 10/14/2015 ([id number]) 14479 EST. PATIENT, LEVEL IV Diagnosis: Essential (primary) hypertension[ICD10: I10] Diagnosis: Chronic atrial fibrillation[ICD10: I48.2] Steffany Parsons MD [facility] CPT-4: 67851 07/06/2015 88106 EST. PATIENT, LEVEL III Diagnosis: Essential (primary) hypertension[ICD10: I10] Diagnosis: Chronic atrial fibrillation[ICD10: I48.2] Diagnosis: Shortness of breath[ICD10: R06.02] Diagnosis: Melena[ICD10: K92.1] Sandra Parsons MD, [facility] CPT-4: 66899 03/29/2015 ([id number]) 11329 EST. PATIENT, LEVEL IV Diagnosis: Essential (primary) hypertension[ICD10: I10] Diagnosis: Chronic atrial fibrillation[ICD10: I48.2] Diagnosis: Cough[ICD10: R05] Steffany Parsons MD [facility] CPT-4: 37389 03/08/2015 ([id number]) 36778 EST. PATIENT, LEVEL III Diagnosis: Other seasonal allergic rhinitis[ICD10: J30.2] Diagnosis: Other lesions of oral mucosa[ICD10: K13.79] [facility] CPT-4: 47245 02/02/2015 ([id number]) OFFICE VISIT, NEW - LEVEL 4 Diagnosis: ESSENTIAL HYPERTENSION[ICD9: 401.9] Diagnosis: HYPERLIPIDEMIA[ICD9: 272.4] Diagnosis: ACTINIC KERATOSIS[ICD9: 702.0] [facility] CPT-4: 09488 09/22/2014 Plan of Care Planned Activity Notes Codes Status Date Appointment: Nurse Visit 06/07/2018 Visit Plan: Cellulitis - possible spider bite - The patient was instructed in appropriate wound care. The patient was instructed to use the antibiotic and ointment as per RX. The patient is to call for any change in symptoms, increase in size of the lesion, increase in pain, worsening redness, warmth, discharge. 06/04/2018 Appointment: Sandra Tim WPtel: [facility] ([facility] min) [facility] 06/04/2018 Patient Education: Patient Medication Summary Completed [...] this time. 04/23/2018 Appointment: Steffany Parsons WPtel: [phone] [facility] (15 min) Moderate 04/23/2018 Patient Education: Patient [...] allergy spray. 02/28/2018 Appointment: Sandra Tim WPtel: [facility]1 [facility] (15 min) Moderate 02/28/2018 Patient Education: Patient [...] spray. 02/19/2018 Appointment: Sandra Tim WPtel: [phone] [facility] (15 min) Moderate 02/19/2018 Patient Education: Patient [...] spray. 11/09/2017 Appointment: Sandra Tim WPtel: [phone] [facility] (15 min) Moderate 11/09/2017 Patient Education: [...] becoming uncontrolled. 10/22/2017 Appointment: Steffany Parsons WPtel: [phone] [facility] (15 min) Moderate 10/22/2017 Patient Education: Patient [...] spray) 07/23/2017 Appointment: Steffany Parsons WPtel: [phone] [facility] (15 min) Moderate 07/23/2017 Patient Education: Patient [...] changes. 07/09/2017 Appointment: Lucrecia Yeager WPtel: [phone] [phone] (30 min) Complex 07/09/2017 Patient Education: Patient [...] acute changes. 06/29/2017 Appointment: Lucrecia Yeager WPtel: [facility]7 [phone] (15 min) Moderate 06/29/2017 Patient Education: Patient Medication Summary Completed 06/29/2017 Appointment: Steffany Parsons WPtel: [facility]9 [facility] (15 min) Moderate 04/30/2017 Visit Plan: Hypertension [...] treatments. 04/23/2017 Appointment: Steffany Parsons WPtel: [phone] [facility] (15 min) Moderate 04/23/2017 Patient Education: Patient Medication Summary Completed 04/23/2017 Visit Plan: Hemoptysis and COPD exacerbation - continue with antibiotics, rx for antifungal tablet and suspension. chest xray ordered, monitor symptoms. Pt to stop aspirin x 1 week, continue with eliquis. call if s ymptoms are not improving. rx for phenergan with codeine. 04/10/2017 Appointment: Steffany Parsons WPtel: [phone] [facility] (15 min) Moderate 04/10/2017 Patient Education: Patient [...] allergy spray. 03/29/2017 Appointment: Sandra Tim WPtel: [facility]9 [facility] (15 min) Moderate 03/29/2017 Patient Education: Patient Medication Summary Completed 03/29/2017 Visit Plan: Pneumonia - Pt has been diagnosed with pneumonia by physical exam. A chest xray has been ordered as have antibiotics. The pt is aware of the diagnosis and the need for acute treatment of this illness. Cough - rx for promethazine/codeine syrup for cough. 02/06/2017 Appointment: Steffany Parsons WPtel: [facility]7 [facility] (15 min) Moderate 02/06/2017 [...] not improving. 11/06/2016 Appointment: Sandra Tim WPtel: [phone] [facility] (15 min) Moderate 11/06/2016 Patient Education: Patient [...] acutely worsen. 09/27/2016 Appointment: Sandra Tim WPtel: [facility]1 [facility]66[facility] (30 min) Complex 09/27/2016 Patient Education: Patient [...] becoming uncontrolled. 03/21/2016 Appointment: Steffany Parsons WPtel: [facility]6 [facility] (15 min) Moderate 03/21/2016 Patient Education: Patient Medication Summary Completed 03/21/2016 Patient Education: Obesity Completed 03/21/2016 Visit Plan: Diarrhea-recent abx use-check stool for cdiff-increase probiotic to twice daily-bland diet advance as tolerated-call if symptoms do not resolve or if any worse. Patient verbalized understanding of plan. 02/01/2016 Appointment: Lucrecia Yeager WPtel: [facility]1 [phone] (15 min) Moderate 02/01/2016 Patient Education: Patient Medication Summary Completed 02/01/2016 Patient Education: Obesity Completed 02/01/2016 Referral: Alexi Honeycutt [address] Info faxed Completed 11/27/2015 Visit Plan: [...] Summary Completed 11/23/2015 Appointment: Steffany Parsons WPtel: [facility]0 [facility]66[facility] (15 min) Moderate 11/15/2015 Visit [...] not heal 10/14/2015 Appointment: Lucrecia Yeager WPtel: [address] [place], [place] [phone] (15 min) Moderate 10/14/2015 Patient Education: Patient [...] acute concerns. 07/20/2015 Appointment: Lucrecia Yeager WPtel: [address] [place], [place] [phone] (30 min) Complex 07/20/2015 Patient Education: Patient [...] concerns. 07/06/2015 Appointment: [facility]el[phone] (15 min) Moderate 07/06/2015 Patient Education: [...] - pt has an upcoming appointment with patient centered care specialist to possibly have an ablation done. [...] [facility] [place] Referral Completed 02/13/2015 Visit Plan: Allergies - [...] 02/02/2015 Care Plan: Referral Order SNOMED-CT : [id number] Ordered 02/02/2015 Visit Plan: Hypertension - well [...] improving. 09/22/2014 Appointment: Steffany Parsons WPtel: [address] [place], [place] [address] [place] ([place]) New Patient 09/22/2014 Patient Education: Patient Medication Summary Completed 09/22/2014 Patient Education: Hypertension Completed 09/22/2014 [facility] [place] [place] Referral Initiated Instructions Comment . Hypertension [...] the nose - (ocean nasal spray) . Hemoptysis and COPD exacerbation - continue [...] - pt has an upcoming appointment with patient centered care specialist to possibly have an ablation done. [...]
--- OUTSIDE RECORDS SUMMARY | 2018-08-31 19:07 | XMS REPORT | CCD ---
Author Author [facility] Organization [facility] Address [address] [place] [address] Phone Care Team Providers Care Exercise Manager Name Role Phone PP Unavailable CCM Unavailable Summary Purpose Interface Exchange Insurance Providers Payer name Policy type / Coverage type Covered republican ID Effective Begin Date Effective End Date [facility] Commercial Insurance [id number] Unknown Unknown Family history Father Diagnosis Age At Onset Prostate Cancer Unknown Runs in the family Diagnosis Age At Onset Hypertension Unknown Mother Diagnosis Age At Onset No Family Disease Entered N/A Social History Social History Element Codes Description Effective Dates Marital status Unknown Mary 02/06/2017 Number of children Unknown 5 09/22/[address]: 5329279 Quit over 10 years ago 09/22/[address]: 191998670 Never drinks alcohol 09/22/2014 Allergies, Adverse Reactions, [...] Start Date Stop Date Status Fill Instructions dapsone 100 mg tablet RxNorm: 627562 1 Tablet(s) PO daily 06/04/2018 06/10/2018 Active doxycycline hyclate 100 mg capsule RxNorm: 0123583 1 Capsule(s) PO BID 06/04/2018 06/13/2018 Active Lasix 40 mg tablet RxNorm: 575699 TAKE 1 TABLET DAILY 04/22/2018 No Stop Date Active prednisone 20 mg tablet RxNorm: 985880 2 Tablet(s) PO daily 02/28/2018 03/04/2018 Inactive START TOMORROW Keflex 500 mg capsule RxNorm: 659892 1 Capsule(s) PO TID 02/28/2018 03/09/2018 Inactive ceftriaxone 500 mg solution for injection RxNorm: 2542980 Inj 02/28/2018 02/28/2018 Inactive Kenalog 40 mg/mL suspension for injection RxNorm: 2510987 Milliliter(s) Inj 02/26/2018 02/26/2018 Inactive Keflex 500 mg capsule RxNorm: 343112 1 Capsule(s) PO TID 02/19/2018 02/25/2018 Inactive Klor-Con M20 mEq tablet,extended release RxNorm: 6849719 TAKE 1 TABLET EVERY MORNING 12/04/2017 No Stop Date Active prednisone 20 mg tablet RxNorm: 773554 2 Tablet(s) PO daily 11/16/2017 11/20/2017 Inactive START TOMORROW Zithromax Z-Mau 250 mg tablet RxNorm: 655256 1 Tablet(s) PO daily 11/16/2017 11/20/2017 Inactive Zithromax Z-Mau 250 mg tablet RxNorm: 931285 1 Tablet(s) PO daily 11/16/2017 11/15/2017 Inactive Keflex 500 mg capsule RxNorm: 072609 1 Capsule(s) PO TID 11/09/2017 11/15/2017 Inactive Zithromax 250 mg tablet RxNorm: 833250 [address] day and 1 tab po on day 2-5 Tablet(s) PO 08/30/2017 09/03/2017 Inactive zpack x 1 doxycycline hyclate 100 mg tablet RxNorm: 213494 1 Tablet(s) PO BID 07/09/2017 07/15/2017 Inactive prednisone 20 mg tablet RxNorm: 225693 2 Tablet(s) PO daily 06/29/2017 07/01/2017 Inactive START TOMORROW Kenalog 40 mg/mL suspension for injection RxNorm: 3596501 Milliliter(s) Inj 06/29/2017 06/29/2017 Inactive Lasix 40 mg tablet RxNorm: 525596 TAKE 1 TABLET DAILY 04/24/2017 04/21/2018 Inactive Diflucan 150 mg tablet RxNorm: 467811 1 Tablet(s) PO daily 04/10/2017 04/16/2017 Inactive Bactrim DS 800 mg-160 mg tablet RxNorm: 786622 1 Tablet(s) PO BID 04/10/2017 04/16/2017 Inactive nystatin 100,000 unit/mL oral suspension RxNorm: 349623 5 Milliliter(s) PO QID 04/10/2017 04/19/2017 Inactive cefdinir 300 mg capsule RxNorm: 191832 1 Capsule(s) PO BID 03/28/2017 04/06/2017 Inactive cefdinir 300 mg capsule RxNorm: 815129 1 Capsule(s) PO BID 02/06/2017 02/15/2017 Inactive ceftriaxone 500 mg solution for injection RxNorm: 1946319 Inj 02/06/2017 02/06/2017 Inactive omeprazole 20 mg tablet,delayed release RxNorm: 529121 1 Tablet(s) PO daily 11/06/2016 12/05/2016 Inactive Phenergan with Codeine Syrup RxNorm: 5 Milliliter(s) PO QID as needed 10/30/2016 No Stop Date Active Tessalon Perles 100 mg capsule RxNorm: 948627 1-2 Capsule(s) PO TID as needed cough 10/30/2016 11/08/2016 Inactive Klor-Con M20 mEq tablet,extended release RxNorm: 9304246 TAKE 1 TABLET EVERY MORNING 10/26/2016 12/03/2017 Inactive ceftriaxone 500 mg solution for injection RxNorm: 1560332 1 Milliliter(s) Inj 09/27/2016 09/27/2016 Inactive Phenergan with Codeine Syrup RxNorm: 5 Milliliter(s) PO QID as needed 09/27/2016 10/29/2016 Inactive Tessalon Perles 100 mg capsule RxNorm: 304677 1-2 Capsule(s) PO TID as needed cough 09/27/2016 09/29/2016 Inactive Kenalog 40 mg/mL suspension for injection RxNorm: 7047366 1 Milliliter(s) Inj 09/27/2016 09/27/2016 Inactive Flagyl 500 mg tablet RxNorm: 144100 1 Tablet(s) PO TID 2016 08/05/2016 Inactive Lasix 40 mg tablet RxNorm: TAKE 1 TABLET DAILY 07/26/2016 04/23/2017 Inactive Zithromax 250 mg tablet RxNorm: 134201 [address] day and 1 tab po on day 2-5 Tablet(s) PO 03/28/2016 03/27/2016 Inactive zpack x 1 Zithromax 250 mg tablet RxNorm: 898424 [address] day and 1 tab po on day 2-5 Tablet(s) PO 03/28/2016 04/01/2016 Inactive zpack x 1 Flagyl 500 mg tablet RxNorm: 481602 1 Tablet(s) PO TID 02/07/2016 02/06/2016 Inactive Flagyl 500 mg tablet RxNorm: 996807 1 Tablet(s) PO TID 02/07/2016 02/16/2016 Inactive Zyrtec-D 5 mg-120 mg tablet,extended release RxNorm: 3883135 1 Tablet(s) PO daily as needed allergies 11/23/2015 No Stop Date Active Imodium A-D 2 mg tablet RxNorm: 200512 1/2 Tablet(s) PO daily 11/23/2015 No Stop Date Active Mucinex 600 mg tablet, extended release RxNorm: 775128 1 Tablet(s) PO BID as needed 11/23/2015 01/21/2016 Inactive Lasix 40 mg tablet RxNorm: TAKE 1 TABLET DAILY 11/01/2015 07/25/2016 Inactive Klor-Con M20 mEq tablet,extended release RxNorm: 1439584 TAKE 1 TABLET EVERY MORNING 11/01/2015 10/25/2016 Inactive Flonase Allergy Relief 50 mcg/actuation nasal spray,suspension RxNorm: 2 [place] NASAL daily 07/20/2015 No Stop Date Active Kenalog 40 mg/mL suspension for injection RxNorm: 3294476 Milliliter(s) Inj 02/02/2015 02/02/2015 Inactive Crestor 5 mg tablet RxNorm: 414673 1/2 Tablet(s) PO daily 10/05/2014 09/29/2015 Inactive metoprolol tartrate 100 mg tablet RxNorm: 064448 1 Tablet(s) PO BID 10/05/2014 12/28/2015 Inactive Plavix 75 mg tablet RxNorm: 605036 1 Tablet(s) PO daily 10/05/2014 03/07/2015 Inactive Klor-Con M20 mEq tablet,extended release RxNorm: 428792 1 Tablet(s) PO QAM 10/05/2014 10/31/2015 Inactive Lasix 40 mg tablet RxNorm: 1 Tablet(s) PO daily 10/05/2014 10/31/2015 Inactive Efudex 5 % topical cream RxNorm: 149003 1 Application TOP BID x 2 weeks, allow healing x 1 -2 weeks, then reuse 10/05/2014 07/05/2015 Inactive Pradaxa 150 mg capsule RxNorm: 3087720 1 Capsule(s) PO BID 10/05/2014 04/09/2017 Inactive amlodipine 10 mg tablet RxNorm: 570815 1/2 Tablet(s) PO QAM 10/05/2014 07/05/2015 Inactive Efudex 5 % topical cream RxNorm: 218173 1 Application TOP BID x 2 weeks, allow healing x 1 -2 weeks, then reuse 09/22/2014 10/04/2014 Inactive Klor-Con M20 mEq tablet,extended release RxNorm: 293968 1 Tablet(s) PO QAM 09/22/2014 10/04/2014 Inactive Lasix 40 mg tablet RxNorm: 1 Tablet(s) PO daily 09/22/2014 10/04/2014 Inactive Cartia XT 180 mg capsule,extended release RxNorm: 706485 2 Capsule(s) PO daily No Start Date Active cetirizine 10 mg tablet RxNorm: 0759531 1 Tablet(s) PO daily at lunch No Start Date Active Canasa 1,000 mg rectal suppository RxNorm: 954236 [address] seymour No Start Date Active Lialda 1.2 gram tablet,delayed release RxNorm: 249105 1 Tablet(s) PO QHS -Prescried by Dr. Seymour No Start Date Active Centrum Silver oral RxNorm: 90860 oral No Start Date Active Eliquis 5 mg tablet RxNorm: 7253720 1 Tablet(s) PO BID Dr Avila No Start Date Active aspirin 81 mg capsule,delayed release RxNorm: 437402 1 Capsule(s) PO daily No Start Date Active losartan 25 mg tablet RxNorm: 029001 1 Tablet(s) PO QPM at supper No Start Date Active digoxin 250 mcg tablet RxNorm: 133720 1 Tablet(s) PO daily No Start Date Active Vitamin D3 5,000 unit tablet RxNorm: 408991 1 Tablet(s) PO BID No Start Date Active Probiotic oral RxNorm: 6205 oral No Start Date Active Glucosamine Chondroit Complx Advan oral RxNorm: oral No Start Date Active Plavix 75 mg tablet RxNorm: 969441 1 Tablet(s) PO daily No Start Date 10/04/2014 Inactive Klor-Con M20 mEq tablet,extended release RxNorm: 744870 1 Tablet(s) PO QAM No Start Date 09/21/2014 Inactive Imodium oral RxNorm: oral No Start Date 11/22/2015 Inactive Lasix 40 mg tablet RxNorm: 191333 1 Tablet(s) PO daily No Start Date 09/21/2014 Inactive amlodipine 10 mg tablet RxNorm: 747906 1/2 Tablet(s) PO QAM No Start Date 10/04/2014 Inactive Crestor 5 mg tablet RxNorm: 602650 1/2 Tablet(s) PO daily No Start Date 10/04/2014 Inactive Flonase Allergy Relief 50 mcg/actuation nasal spray,suspension RxNorm: 1 [place] NASAL daily No Start Date 07/19/2015 Inactive metoprolol tartrate 100 mg tablet RxNorm: 419459 1 Tablet(s) PO BID No Start Date 10/04/2014 Inactive Probiotic 4X oral RxNorm: 4867537 oral No Start Date 07/06/2015 Inactive Pradaxa 150 mg capsule RxNorm: 2406238 1 Capsule(s) PO BID No Start Date 10/04/2014 Inactive Medication Administered Medication Codes Instructions Start Date Status ceftriaxone 500 mg solution for injection RxNorm: 8533342 02/28/2018 No longer Active Kenalog 40 mg/mL suspension for injection RxNorm: 4989967 Milliliter 02/26/2018 No longer Active Kenalog 40 mg/mL suspension for injection RxNorm: 7733230 Milliliter 06/29/2017 No longer Active ceftriaxone 500 mg solution for injection RxNorm: 3292091 02/06/2017 No longer Active Kenalog 40 mg/mL suspension for injection RxNorm: 6998547 1Milliliter 09/27/2016 No longer Active ceftriaxone 500 mg solution for injection RxNorm: 0929249 1Milliliter 09/27/2016 No longer Active Kenalog 40 mg/mL suspension for injection RxNorm: 0622154 Milliliter 02/02/2015 No longer Active Immunizations Vaccine [...] 31.4 pg 10/23/2017 Cbc With Differential Ord2 [place]% 8.5 % 10/23/2017 Cbc With Differential Ord2 [...] 2.73 K/ul 10/23/2017 Cbc With Differential Ord2 [place] ABS# 0.9 K/ul 10/23/2017 Cbc With Differential Ord2 Eos ABS# 0.6 K/ul 10/23/2017 Cbc With Differential Ord2 Baso ABS# 0.0 K/ul 10/23/2017 Digoxin Ord9 DIGOXIN 1.0 NG/ML 10/23/2017 Lipid Ord30 CHOL 108 mg/dL 10/23/2017 Lipid Ord30 HDL 39.0 mg/dl 10/23/2017 Lipid Ord30 TRIG 175 mg/dL 10/23/2017 Lipid Ord30 LDL 34 mg/dL 10/23/2017 Lipid Ord30 C/HDL 2.8 Ratio 10/23/2017 Comp Metabolic Vvi582 NA 140 mEq/L 10/23/2017 Comp Metabolic Qau677 K 4.1 mEq/L 10/23/2017 Comp Metabolic Uqx098 CL 102 mEq/L 10/23/2017 Comp Metabolic Lwl099 CO2 30.0 mEq/L 10/23/2017 Comp Metabolic Pgq849 ANION GAP 12 10/23/2017 Comp Metabolic Rzo993 GLUCOSE 124 mg/dL 10/23/2017 Comp Metabolic Lql034 Creat 1.1 mg/dL 10/23/2017 Comp Metabolic Ipf240 eGFR 71 ml/min/1.73m2 10/23/2017 Comp Metabolic Wfw484 BUN 11 mg/dL 10/23/2017 Comp Metabolic Xpg254 B/C Ratio 10.2 Ratio 10/23/2017 Comp Metabolic Zvr309 CALCIUM 9.3 mg/dL 10/23/2017 Comp Metabolic Jnf101 ALK PHOS 72 U/L 10/23/2017 Comp Metabolic Del465 AST(SGOT) 21 U/L 10/23/2017 Comp Metabolic Ioa532 ALT(SGPT) 17 U/L 10/23/2017 Comp Metabolic Bbh065 BILI T 0.8 mg/dL 10/23/2017 Comp Metabolic Eax793 ALBUMIN 4.3 g/dL 10/23/2017 Comp Metabolic Myr520 TPRO 7.4 g/dL 10/23/2017 Comp Metabolic Cbv162 GLOB 3.1 g/dL 10/23/2017 Comp Metabolic Jyb574 A/G Ratio 1.4 Ratio 10/23/2017 Comp Metabolic Fqq587 Osmo 280 mOsmo 10/23/2017 Tsh Ord6 TSH (3rd IS) 3.37 uIU/mL 10/23/2017 Test(s) Not Perfromed XJC1021 Test(s) Not Performed Test(s) Not Performed. See Below: 10/23/2017 Test(s) Not Perfromed [id number] TEST NAME PSA 10/23/2017 Test(s) Not Perfromed [id number] Rejection Reason PSA Performed yearly at Dr. Stone's Office 10/23/2017 Test(s) Not Perfromed [id number] COMMENT N/A 10/23/2017 Test(s) Not Perfromed [id number] Water Registrar Gian Johnson 10/23/2017 Comp Metabolic Uyq307 NA 137 mEq/L 03/21/2016 Comp Metabolic Ssv022 K 4.6 mEq/L 03/21/2016 Comp Metabolic Pop864 CL 101 mEq/L 03/21/2016 Comp Metabolic Ztj282 CO2 31.0 mEq/L 03/21/2016 Comp Metabolic Pvs992 ANION GAP 10 03/21/2016 Comp Metabolic Ocv363 GLUCOSE 106 mg/dL 03/21/2016 Comp Metabolic Aek595 Creat 1.1 mg/dL 03/21/2016 Comp Metabolic Pij868 eGFR 69 ml/min/1.73m2 03/21/2016 Comp Metabolic Vrt042 BUN 11 mg/dL 03/21/2016 Comp Metabolic Ome848 B/C Ratio 9.9 Ratio 03/21/2016 Comp Metabolic Kgv306 CALCIUM 9.5 mg/dL 03/21/2016 Comp Metabolic Zst474 ALK PHOS 88 U/L 03/21/2016 Comp Metabolic Qfq256 AST(SGOT) 21 U/L 03/21/2016 Comp Metabolic Goz313 ALT(SGPT) 15 U/L 03/21/2016 Comp Metabolic Qqp534 BILI T 0.7 mg/dL 03/21/2016 Comp Metabolic Ltp953 ALBUMIN 4.2 g/dL 03/21/2016 Comp Metabolic Mxi425 TPRO 7.9 g/dL 03/21/2016 Comp Metabolic Laf488 GLOB 3.7 g/dL 03/21/2016 Comp Metabolic Mli094 A/G Ratio 1.1 Ratio 03/21/2016 Comp Metabolic Hxr828 Osmo 274 mOsmo 03/21/2016 Lipid Ord30 CHOL [...] 31.3 pg 03/21/2016 Cbc With Differential Ord2 [place]% 10.3 % 03/21/2016 Cbc With Differential Ord2 [...] 2.51 K/ul 03/21/2016 Cbc With Differential Ord2 [place] ABS# 1.2 K/ul 03/21/2016 Cbc With Differential Ord2 Eos ABS# 0.7 K/ul 03/21/2016 Cbc With Differential Ord2 Baso ABS# 0.0 K/ul 03/21/2016 Clostridium Diff Tox A/B Qkt673 Cdiff Negative 02/01/2016 Culture Mrsa [id number] MRSA CULTURE SEE NOTES 04/09/2015 Digoxin Ord9 [...] Ord9 DIGOXIN 1.0 NG/ML 03/11/2015 Comp Metabolic Njc017 NA 142 mEq/L 03/11/2015 Comp Metabolic Czs834 K 4.4 mEq/L 03/11/2015 Comp Metabolic Pzg125 CL 107 mEq/L 03/11/2015 Comp Metabolic Lgc958 CO2 27.0 mEq/L 03/11/2015 Comp Metabolic Rlu696 ANION GAP 12 03/11/2015 Comp Metabolic Gbm755 GLUCOSE 106 mg/dL 03/11/2015 Comp Metabolic Erj286 Creat 1.1 mg/dL 03/11/2015 Comp Metabolic Xxr899 eGFR 68 ml/min/1.73m2 03/11/2015 Comp Metabolic Dor759 BUN 16 mg/dL 03/11/2015 Comp Metabolic Cpk979 B/C Ratio 14.3 Ratio 03/11/2015 Comp Metabolic Ejs480 CALCIUM 9.5 mg/dL 03/11/2015 Comp Metabolic Kyl157 ALK PHOS 82 U/L 03/11/2015 Comp Metabolic Alk312 AST(SGOT) 20 U/L 03/11/2015 Comp Metabolic Bog908 ALT(SGPT) 17 U/L 03/11/2015 Comp Metabolic Paw037 BILI T 0.4 mg/dL 03/11/2015 Comp Metabolic Xny135 ALBUMIN 4.0 g/dL 03/11/2015 Comp Metabolic Gqq063 TPRO 6.9 g/dL 03/11/2015 Comp Metabolic Bil356 GLOB 2.9 g/dL 03/11/2015 Comp Metabolic Xnh116 A/G Ratio 1.4 Ratio 03/11/2015 Comp Metabolic Sph678 Osmo 285 mOsmo 03/11/2015 Metabolic Ord15 NA [...] inspection of skin Location: face 04/23/2018 right pentecostalism, forehead, left pentecostalism - irrirated actinic keratosis Full Exam - [...] inspection of skin Location: face 10/22/2017 right pentecostalism, forehead, left pentecostalism - irrirated actinic keratosis Full Exam - [...] inspection of skin Location: face 03/21/2016 right pentecostalism, forehead, left pentecostalism - irrirated actinic keratosis Full Exam - [...] inspection of skin Location: face 11/23/2015 right pentecostalism, left pentecostalism - irrirated actinic keratosis Full Exam - [...] inspection of skin Location: face 07/06/2015 right pentecostalism, forehead, left pentecostalism - irrirated actinic keratosis Full Exam - [...] Procedure Codes Date THER/PROPH/DIAG INJ SC/IM CPT-4: 69448 02/28/2018 ROCEPHIN, PER 250 MG CPT- 4: J0696 02/28/2018 THER/PROPH/DIAG INJ SC/IM CPT-4: 89500 02/26/2018 TRIAMCINOLONE ACET INJ NOS CPT-4: J3301 02/26/2018 PPPS, SUBSEQ VISIT CPT- 4: G0439 2017 TRIAMCINOLONE ACET INJ NOS CPT-4: J3301 06/29/2017 THER/PROPH/DIAG INJ SC/IM CPT-4: 20612 02/06/2017 ROCEPHIN, PER 250 MG CPT- 4: J0696 02/06/2017 ROCEPHIN, PER 250 MG CPT- 4: J0696 09/27/2016 TRIAMCINOLONE ACET INJ NOS CPT-4: J3301 09/27/2016 THER/PROPH/DIAG INJ SC/IM CPT-4: 10126 09/27/2016 DESTRUCT PREMALG LESION CPT-4: 05406 10/14/2015 DESTRUCT PREMALG LESION CPT-4: 42062 07/20/2015 DESTRUCT PREMALG LESION CPT-4: 93012 07/06/2015 DESTRUCT PREMALG LES 2-14 CPT-4: 64617 07/06/2015 TRIAMCINOLONE ACET INJ NOS CPT-4: J3301 02/02/2015 Vital Signs Date Vital 06/04/2018 Blood Pressure 1: 130/62 Code: 8480-6 BMI: 30.6 Code: 56438-2 Heart Rate 1: 88 bpm Height: 5'8" SpO2: 97% Weight: 201 lbs 04/23/2018 Blood Pressure 1: 130/72 Code: 8480-6 BMI: 30.1 Code: 71066-6 Heart Rate 1: 74 bpm Height: 5'8" SpO2: 97% Weight: 198 lbs 02/28/2018 Blood Pressure 1: 124/72 Code: 8480-6 BMI: 30.0 Code: 47953-9 Heart Rate 1: 69 bpm Height: 5'8" SpO2: 97% Temperature: 36.6 (C) / 97.8 (F) Weight: 197 lbs 02/19/2018 Blood Pressure 1: 128/76 Code: 8480-6 BMI: 30.0 Code: 83829-3 Heart Rate 1: 66 bpm Height: 5'8" SpO2: 97% Weight: 197 lbs 11/09/2017 Blood Pressure 1: 130/74 Code: 8480-6 BMI: 29.3 Code: 17311-6 Heart Rate 1: 81 bpm Height: 5'8" SpO2: 98% Temperature: 36.6 (C) / 97.9 (F) Weight: 193 lbs 10/22/2017 Blood Pressure 1: 132/82 Code: 8480-6 BMI: 29.0 Code: 30760-7 Heart Rate 1: 80 bpm Height: 5'8" SpO2: 98% Weight: 191 lbs 2017 Blood Pressure 1: 142/68 Code: 8480-6 BMI: 28.7 Code: 72453-0 Heart Rate 1: 62 bpm Height: 5'8" SpO2: 98% Waist Measure (cm): 102 cm Weight: 189 lbs 07/23/2017 Blood Pressure 1: 138/84 Code: 8480-6 BMI: 29.0 Code: 49473-6 Heart Rate 1: 69 bpm Height: 5'8" SpO2: 98% Weight: 191 lbs 07/09/2017 Blood Pressure 1: 120/82 Code: 8480-6 BMI: 29.2 Code: 45243-3 Heart Rate 1: 80 bpm Height: 5'8" SpO2: 98% Weight: 192 lbs 06/29/2017 Blood Pressure 1: 140/82 Code: 8480-6 BMI: 29.5 Code: 71632-2 Heart Rate 1: 83 bpm Height: 5'8" SpO2: 98% Weight: 194 lbs 04/23/2017 Blood Pressure 1: 132/74 Code: 8480-6 BMI: 28.4 Code: 09155-0 Heart Rate 1: 78 bpm Height: 5'8" SpO2: 97% Weight: 187 lbs 04/10/2017 Blood Pressure 1: 126/68 Code: 8480-6 BMI: 29.5 Code: 95732-8 Heart Rate 1: 68 bpm Height: 5'8" SpO2: 92% Temperature: 37.5 (C) / 99.5 (F) Weight: 194 lbs 03/29/2017 Blood Pressure 1: 116/76 Code: 8480-6 BMI: 29.6 Code: 57804-1 Heart Rate 1: 61 bpm Height: 5'8" SpO2: 98% Weight: 195 lbs 02/06/2017 Blood Pressure 1: 130/74 Code: 8480-6 BMI: 30.4 Code: 74928-0 Heart Rate 1: 71 bpm Height: 5'8" SpO2: 98% Weight: 200 lbs 11/06/2016 Blood Pressure 1: 140/74 Code: 8480-6 BMI: 29.5 Code: 65881-8 Heart Rate 1: 76 bpm Height: 5'8" SpO2: 96% Weight: 194 lbs 09/27/2016 Blood Pressure 1: 138/78 Code: 8480-6 BMI: 29.6 Code: 19312-6 Heart Rate 1: 68 bpm Height: 5'8" SpO2: 97% Weight: 195 lbs 03/21/2016 Blood Pressure 1: 148/82 Code: 8480-6 BMI: 30.6 Code: 82185-1 Heart Rate 1: 67 bpm Height: 5'8" SpO2: 98% Weight: 201 lbs 02/01/2016 Blood Pressure 1: 128/86 Code: 8480-6 BMI: 30.3 Code: 91437-9 Heart Rate 1: 84 bpm Height: 5'8" SpO2: 96% Weight: 199 lbs 11/23/2015 Blood Pressure 1: 132/76 Code: 8480-6 BMI: 30.4 Code: 33630-0 Heart Rate 1: 81 bpm Height: 5'8" SpO2: 98% Weight: 200 lbs 10/14/2015 Blood Pressure 1: 120/80 Code: 8480-6 BMI: 30.4 Code: 50738-5 Heart Rate 1: 87 bpm Height: 5'8" SpO2: 97% Weight: 200 lbs 07/20/2015 Blood Pressure 1: 132/84 Code: 8480-6 BMI: 31.0 Code: 18289-2 Heart Rate 1: 78 bpm Height: 5'8" SpO2: 96% Weight: 204 lbs 07/06/2015 Blood Pressure 1: 130/78 Code: 8480-6 BMI: 31.0 Code: 55373-8 Heart Rate 1: 80 bpm Height: 5'8" SpO2: 98% Weight: 204 lbs 03/29/2015 Blood Pressure 1: 132/82 Code: 8480-6 BMI: 29.6 Code: 46780-6 Heart Rate 1: 76 bpm Height: 5'8" SpO2: 96% Weight: 195 lbs 03/08/2015 Blood Pressure 1: 126/84 Code: 8480-6 BMI: 30.2 Code: 08533-2 Heart Rate 1: 101 bpm Height: 5'8" SpO2: 98% Weight: 198 lbs 8 oz 02/02/2015 Blood Pressure 1: 132/86 Code: 8480-6 Heart Rate 1: 86 bpm SpO2: 98% Temperature: 36.6 (C) / 97.8 (F) Weight: 198 lbs 09/22/2014 Blood Pressure 1: 128/80 Code: 8480-6 BMI: 29.3 Code: 43774-0 Heart Rate 1: 85 bpm Height: 5'8" [...] data Encounters Encounter Performer Location Codes Date 56702 EST. PATIENT, LEVEL III Diagnosis: Cellulitis of right upper limb[ICD10: L03.113] [facility] CPT-4: 90301 06/04/2018 ([id number]) [id number] EST. PATIENT, LEVEL IV Diagnosis: Essential (primary) hypertension[ICD10: I10] Diagnosis: Chronic atrial fibrillation[ICD10: I48.2] Diagnosis: Mixed hyperlipidemia[ICD10: E78.2] [facility] CPT- 4: 97046 04/23/2018 95711 EST. PATIENT, LEVEL IV Diagnosis: Other acute sinusitis[ICD10: J01.80] Diagnosis: Other allergic rhinitis[ICD10: J30.89] Sandra [facility] MD, [facility] CPT- 4: 08382 02/28/2018 [id number] EST. PATIENT, LEVEL IV Diagnosis: Other acute sinusitis[ICD10: J01.80] Diagnosis: Other allergic rhinitis[ICD10: J30.89] Sandra [facility]ons MD, [facility] CPT- 4: 50481 02/19/2018 [id number] EST. PATIENT, LEVEL III Diagnosis: Acute laryngopharyngitis[ICD10: J06.0] Diagnosis: Other allergic rhinitis[ICD10: J30.89] Sandra [facility]ons MD [facility] CPT- 4: 38808 11/09/2017 ([id number]) 17293 EST. PATIENT, LEVEL IV Diagnosis: Essential (primary) hypertension[ICD10: I10] Diagnosis: Chronic atrial fibrillation[ICD10: I48.2] Steffany Parsons MD [facility] CPT-4: 83929 10/22/2017 ([id number]) 86431 EST. PATIENT, LEVEL IV Diagnosis: Essential (primary) hypertension[ICD10: I10] Diagnosis: Chronic atrial fibrillation[ICD10: I48.2] Diagnosis: Cough[ICD10: R05] Steffany [facility] MD, [facility] CPT-4: 69310 07/23/2017 ([id number]) 93201 EST. PATIENT, LEVEL III Diagnosis: Cough[ICD10: R05] Diagnosis: Other allergic rhinitis[ICD10: J30.89] Diagnosis: Chronic obstructive pulmonary disease with (acute) exacerbation[ICD10: J44.1] Lucrecia Parsons MD, [facility] CPT-4: 26909 07/09/2017 ([id number]) 01575 EST. PATIENT, LEVEL III Diagnosis: Cough[ICD10: R05] Diagnosis: Other allergic rhinitis[ICD10: J30.89] Diagnosis: Chronic obstructive pulmonary disease with (acute) exacerbation[ICD10: J44.1] Lucrecia Parsons MD, [facility] CPT-4: 60595 06/29/2017 ([id number]) 26851 EST. PATIENT, LEVEL III Diagnosis: Essential (primary) hypertension[ICD10: I10] Diagnosis: Cough[ICD10: R05] Steffany Parsons MD, [facility] CPT-4: 74965 04/23/2017 ([id number]) 45513 EST. PATIENT, LEVEL IV Diagnosis: Hemoptysis[ICD10: R04.2] Diagnosis: Essential (primary) hypertension[ICD10: I10] Diagnosis: Chronic obstructive pulmonary disease with acute lower respiratory infection[ICD10: J44.0] Steffany Parsons MD, [facility] CPT-4: 83080 04/10/2017 35845 EST. PATIENT, LEVEL III Diagnosis: Acute laryngopharyngitis[ICD10: J06.0] Diagnosis: Other allergic rhinitis[ICD10: J30.89] Sandra Parsons MD, [facility] CPT- 4: 07079 03/29/2017 ([id number]) 41433 EST. PATIENT, LEVEL III Diagnosis: Pneumonia due to Mycoplasma pneumoniae[ICD10: J15.7] Diagnosis: Cough[ICD10: R05] Diagnosis: Other chest pain[ICD10: R07.89] Steffany Parsons MD, [facility] CPT-4: 78251 02/06/2017 00846 EST. PATIENT, LEVEL IV Diagnosis: Cough[ICD10: R05] Diagnosis: Shortness of breath[ICD10: R06.02] Diagnosis: Gastro-esophageal reflux disease without esophagitis[ICD10: K21.9] Sandra [facility]ons MD, [facility] CPT-4: 55176 11/06/2016 81624 EST. PATIENT, LEVEL IV Diagnosis: Other allergic rhinitis[ICD10: J30.89] Diagnosis: Acute bronchitis due to other specified organisms[ICD10: J20.8] Sandra Parsons MD, [facility] CPT-4: 42071 09/27/2016 ([id number]) 73606 EST. PATIENT, LEVEL IV Diagnosis: Essential (primary) hypertension[ICD10: I10] Diagnosis: Chronic atrial fibrillation[ICD10: I48.2] Diagnosis: Encounter for therapeutic drug level monitoring[ICD10: Z51.81] Steffany Parsons MD, [facility] CPT-4: 89237 03/21/2016 ([id number]) 68514 EST. 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 PATIENT, LEVEL III Diagnosis: Allergic rhinitis due to pollen[ICD10: J30.1] Diagnosis: Actinic keratosis[ICD10: L57.0] Lucrecia Parsons MD, [facility] CPT-4: 41946 10/14/2015 ([id number]) 72404 EST. PATIENT, LEVEL IV Diagnosis: Essential (primary) hypertension[ICD10: I10] Diagnosis: Chronic atrial fibrillation[ICD10: I48.2] Steffany Parsons MD, [facility] CPT-4: 20384 07/06/2015 [id number] EST. PATIENT, LEVEL III Diagnosis: Essential (primary) hypertension[ICD10: I10] Diagnosis: Chronic atrial fibrillation[ICD10: I48.2] Diagnosis: Shortness of breath[ICD10: R06.02] Diagnosis: Melena[ICD10: K92.1] Sandra Parsons MD, [facility] CPT-4: 89384 03/29/2015 ([id number]) 71013 EST. PATIENT, LEVEL IV Diagnosis: Essential (primary) hypertension[ICD10: I10] Diagnosis: Chronic atrial fibrillation[ICD10: I48.2] Diagnosis: Cough[ICD10: R05] Steffany Parsons MD, [facility] CPT-4: 81593 03/08/2015 ([id number]) [id number] EST. PATIENT, LEVEL III Diagnosis: Other seasonal allergic rhinitis[ICD10: J30.2] Diagnosis: Other lesions of oral mucosa[ICD10: K13.79] Lucrecia Parsons MD, [facility] CPT-4: 55102 02/02/2015 ([id number]) OFFICE VISIT, NEW - LEVEL 4 Diagnosis: ESSENTIAL HYPERTENSION[ICD9: 401.9] Diagnosis: HYPERLIPIDEMIA[ICD9: 272.4] Diagnosis: ACTINIC KERATOSIS[ICD9: 702.0] Steffany Parsons MD, [facility] CPT-4: 87416 09/22/2014 Plan of Care Planned Activity Notes Codes Status Date Visit Plan: Cellulitis - possible spider bite - The patient was instructed in appropriate wound care. The patient was instructed to use the antibiotic and ointment as per RX. The patient is to call for any change in symptoms, increase in size of the lesion, increase in pain, worsening redness, warmth, discharge. 06/04/2018 Patient Education: Patient Medication Summary Completed [...] this time. 04/23/2018 Appointment: Steffany Parsons WPtel: [address] [place], [place] [address] (15 min) Moderate 04/23/2018 Patient Education: Patient [...] allergy spray. 02/28/2018 Appointment: Sandra Tim WPtel: [facility] [address] (15 min) Moderate 02/28/2018 Patient Education: Patient [...] allergy spray. 02/19/2018 Appointment: Sandra Tim WPtel: [facility]66[facility] (15 min) Moderate 02/19/2018 Patient [...] allergy spray. 11/09/2017 Appointment: Sandra Tim WPtel: [phone] [facility] (15 min) Moderate 11/09/2017 Patient Education: Patient [...] becoming uncontrolled. 10/22/2017 Appointment: Steffany Parsons WPtel: [phone] [facility] (15 min) Moderate 10/22/2017 Patient Education: [...] nose - (ocean nasal spray) 07/23/2017 Appointment: Judy Pars[phone] [place] (15 min) Moderate 07/23/2017 Patient Education: Patient [...] changes. 07/09/2017 App[facility]ment[phone] (30 min) Complex 07/09/2017 Patient Education: Patient [...] acute changes. 06/29/2017 Appointment: Lucrecia Yeager WPtel: [phone] [phone] [place] (15 min) Moderate 06/29/2017 Patient Education: Patient Medication Summary Completed 06/29/2017 Appointment: Steffany Parsons WPtel: [facility]3 [facility] (15 min) Moderate 04/30/2017 Visit Plan: [...] breathing treatments. 04/23/2017 Appointment: Steffany Parsons WPtel: [address] [facility] (15 min) Moderate 04/23/2017 Patient Education: Patient Medication Summary Completed 04/23/2017 Visit Plan: Hemoptysis and COPD exacerbation - continue with antibiotics, rx for antifungal tablet and suspension. chest xray ordered, monitor symptoms. Pt to stop aspirin x 1 week, continue with eliquis. call if s ymptoms are not improving. rx for phenergan with codeine. 04/10/2017 Appointment: Steffany Parsons WPtel: [facility] (15 min) Moderate 04/10/2017 Patient Education: Patient [...] allergy spray. 03/29/2017 Appointment: Sandra Tim WPtel: [facility]0 [address] (15 min) Moderate 03/29/2017 Patient Education: Patient Medication Summary Completed 03/29/2017 Visit Plan: Pneumonia - Pt has been diagnosed with pneumonia by physical exam. A chest xray has been ordered as have antibiotics. The pt is aware of the diagnosis and the need for acute treatment of this illness. Cough - rx for promethazine/codeine syrup for cough. 02/06/2017 Appointment: Steffany Parsons WPtel: [facility] (15 min) Moderate 02/06/2017 Patient Education: [...] not improving. 11/06/2016 Appointment: Sandra Tim WPtel: [facility] [place] [id number] (15 min) Moderate 11/06/2016 Patient Education: Patient [...] acutely worsen. 09/27/2016 Appointment: [phone] (30 min) Complex 09/27/2016 Patient Education: Patient [...] becoming uncontrolled. 03/21/2016 Appointment: Steffany Parsons WPtel: [facility]2 [facility] (15 min) Moderate 03/21/2016 Patient Education: Patient Medication Summary Completed 03/21/2016 Patient Education: Obesity Completed 03/21/2016 Visit Plan: Diarrhea-recent abx use-check stool for cdiff-increase probiotic to twice daily-bland diet advance as tolerated-call if symptoms do not resolve or if any worse. Patient verbalized understanding of plan. 02/01/2016 Appointment: Lucrecia Yeager WPtel: [facility]8 [phone] (15 min) Moderate 02/01/2016 Patient Education: Patient Medication Summary Completed 02/01/2016 Patient Education: Obesity Completed 02/01/2016 Referral: Alexi Honeycutt [id number] Info faxed Completed 11/27/2015 Visit Plan: Hypertension [...] Summary Completed 11/23/2015 Appointment: Steffany Parsons WPtel: [facility] (15 min) Moderate 11/15/2015 Visit Plan: Allergies [...] not heal 10/14/2015 Appointment: Lucrecia Yeager WPtel: [phone] (15 min) Moderate 10/14/2015 Patient Education: [...] acute concerns. 07/20/2015 Appointment: Lucrecia Yeager WPtel: [facility]2 [phone] (30 min) Complex 07/20/2015 Patient Education: [...] acute concerns. 07/06/2015 Appointment: Steffany Parsons WPtel: [facility] [place] (15 min) Moderate [...] - pt has an upcoming appointment with desktop publishing specialist to possibly have an ablation done. [...] Education: Hypertension Completed 03/08/2015 [facility] [place] Referral Completed 02/13/2015 Visit Plan: [...] 02/02/2015 Care Plan: Referral Order SNOMED-CT : [id number] Ordered 02/02/2015 Visit Plan: Hypertension - well [...] improving. 09/22/2014 Appointment: Steffany Parsons WPtel: [address] [place], [place] [address] [place] ([place]) New Patient 09/22/2014 Patient Education: Patient Medication Summary Completed 09/22/2014 Patient Education: Hypertension Completed 09/22/2014 [facility] Ref[facility] Initiated Instructions Comment . Hypertension [...] not improved, or if symptoms acutely worsen. . Allergies - chronic - recommended pt [...] breath - resolved finish breathing treatments. . Sinusitis - Pt has acute infection [...] pustular drainage, or any other acute concerns. appt with Dr. Honeycutt in his clinic [...] in the nasal steroid allergy spray. . Wound Instructions - Pt was instructed [...] - pt has an upcoming appointment with desktop publishing specialist to possibly have an ablation done. [...]
--- OUTSIDE RECORDS SUMMARY | 2018-08-31 19:10 | XMS REPORT | CCD ---
Author Author [facility] Organization [facility] Address [address] [place] [address] Phone Care Team Providers Care Environmental Solutions Engineer Name Role Phone PP Unavailable CCM Unavailable Summary Purpose Interface Exchange Insurance Providers Payer name Policy type / Coverage type Covered libertarian ID Effective Begin Date Effective End Date [facility] Commercial Insurance [id number] Unknown Unknown Family history Father Diagnosis Age At Onset Prostate Cancer Unknown Runs in the family Diagnosis Age At Onset Hypertension Unknown Mother Diagnosis Age At Onset No Family Disease Entered N/A Social History Social History Element Codes Description Effective Dates Marital status Unknown Mary 02/06/2017 Number of children Unknown 5 09/22/[address]: 7397180 Quit over 10 years ago 09/22/[address]: 902230511 Never drinks alcohol 09/22/2014 Allergies, Adverse Reactions, Alerts Substance Reaction Codes Entered Date Inactivated Date Status * NO KNOWN DRUG ALLERGIES Unknown 09/22/2014 No Inactive Date Active Past Medical History Illness Codes Condition Status Onset Date Resolved Date Chronic atrial fibrillation ICD-9: 427.31 ICD-10: I48.2 [...] Problems Condition Codes Effective Dates Condition Status Chronic atrial fibrillation ICD-9: 427.31 ICD-10: I48.2 [...] Start Date Stop Date Status Fill Instructions Lasix 40 mg tablet RxNorm: 794101 TAKE 1 TABLET DAILY 04/22/2018 No Stop Date Active prednisone 20 mg tablet RxNorm: 849957 2 Tablet(s) PO daily 02/28/2018 03/04/2018 Inactive START TOMORROW Keflex 500 mg capsule RxNorm: 023494 1 Capsule(s) PO TID 02/28/2018 03/09/2018 Inactive ceftriaxone 500 mg solution for injection RxNorm: 9092762 Inj 02/28/2018 02/28/2018 Inactive Kenalog 40 mg/mL suspension for injection RxNorm: 8134581 Milliliter(s) Inj 02/26/2018 02/26/2018 Inactive Keflex 500 mg capsule RxNorm: 755970 1 Capsule(s) PO TID 02/19/2018 02/25/2018 Inactive Klor-Con M20 mEq tablet,extended release RxNorm: 1555857 TAKE 1 TABLET EVERY MORNING 12/04/2017 No Stop Date Active prednisone 20 mg tablet RxNorm: 751184 2 Tablet(s) PO daily 11/16/2017 11/20/2017 Inactive START TOMORROW Zithromax Z-Mau 250 mg tablet RxNorm: 137555 1 Tablet(s) PO daily 11/16/2017 11/20/2017 Inactive Zithromax Z-Mau 250 mg tablet RxNorm: 725088 1 Tablet(s) PO daily 11/16/2017 11/15/2017 Inactive Keflex 500 mg capsule RxNorm: 133570 1 Capsule(s) PO TID 11/09/2017 11/15/2017 Inactive Zithromax 250 mg tablet RxNorm: 061247 [address] day and 1 tab po on day 2-5 Tablet(s) PO 08/30/2017 09/03/2017 Inactive zpack x 1 doxycycline hyclate 100 mg tablet RxNorm: 898954 1 Tablet(s) PO BID 07/09/2017 07/15/2017 Inactive prednisone 20 mg tablet RxNorm: 907061 2 Tablet(s) PO daily 06/29/2017 07/01/2017 Inactive START TOMORROW Kenalog 40 mg/mL suspension for injection RxNorm: 5975706 Milliliter(s) Inj 06/29/2017 06/29/2017 Inactive Lasix 40 mg tablet RxNorm: 491531 TAKE 1 TABLET DAILY 04/24/2017 04/21/2018 Inactive Diflucan 150 mg tablet RxNorm: 575537 1 Tablet(s) PO daily 04/10/2017 04/16/2017 Inactive Bactrim DS 800 mg-160 mg tablet RxNorm: 864652 1 Tablet(s) PO BID 04/10/2017 04/16/2017 Inactive nystatin 100,000 unit/mL oral suspension RxNorm: 388439 5 Milliliter(s) PO QID 04/10/2017 04/19/2017 Inactive cefdinir 300 mg capsule RxNorm: 123726 1 Capsule(s) PO BID 03/28/2017 04/06/2017 Inactive cefdinir 300 mg capsule RxNorm: 596443 1 Capsule(s) PO BID 02/06/2017 02/15/2017 Inactive ceftriaxone 500 mg solution for injection RxNorm: 1355859 Inj 02/06/2017 02/06/2017 Inactive omeprazole 20 mg tablet,delayed release RxNorm: 184833 1 Tablet(s) PO daily 11/06/2016 12/05/2016 Inactive Phenergan with Codeine Syrup RxNorm: 5 Milliliter(s) PO QID as needed 10/30/2016 No Stop Date Active Tessalon Perles 100 mg capsule RxNorm: 379342 1-2 Capsule(s) PO TID as needed cough 10/30/2016 11/08/2016 Inactive Klor-Con M20 mEq tablet,extended release RxNorm: 8052836 TAKE 1 TABLET EVERY MORNING 10/26/2016 12/03/2017 Inactive ceftriaxone 500 mg solution for injection RxNorm: 9081311 1 Milliliter(s) Inj 09/27/2016 09/27/2016 Inactive Phenergan with Codeine Syrup RxNorm: 5 Milliliter(s) PO QID as needed 09/27/2016 10/29/2016 Inactive Tessalon Perles 100 mg capsule RxNorm: 507241 1-2 Capsule(s) PO TID as needed cough 09/27/2016 09/29/2016 Inactive Kenalog 40 mg/mL suspension for injection RxNorm: 1864191 1 Milliliter(s) Inj 09/27/2016 09/27/2016 Inactive Flagyl 500 mg tablet RxNorm: 406508 1 Tablet(s) PO TID 2016 08/05/2016 Inactive Lasix 40 mg tablet RxNorm: 085960 TAKE 1 TABLET DAILY 07/26/2016 04/23/2017 Inactive Zithromax 250 mg tablet RxNorm: 622188 [address] day and 1 tab po on day 2-5 Tablet(s) PO 03/28/2016 03/27/2016 Inactive zpack x 1 Zithromax 250 mg tablet RxNorm: 541720 [address] day and 1 tab po on day 2-5 Tablet(s) PO 03/28/2016 04/01/2016 Inactive zpack x 1 Flagyl 500 mg tablet RxNorm: 717378 1 Tablet(s) PO TID 02/07/2016 02/06/2016 Inactive Flagyl 500 mg tablet RxNorm: 709543 1 Tablet(s) PO TID 02/07/2016 02/16/2016 Inactive Zyrtec-D 5 mg-120 mg tablet,extended release RxNorm: 7296103 1 Tablet(s) PO daily as needed allergies 11/23/2015 No Stop Date Active Imodium A-D 2 mg tablet RxNorm: 616853 1/2 Tablet(s) PO daily 11/23/2015 No Stop Date Active Mucinex 600 mg tablet, extended release RxNorm: 870571 1 Tablet(s) PO BID as needed 11/23/2015 01/21/2016 Inactive Lasix 40 mg tablet RxNorm: TAKE 1 TABLET DAILY 11/01/2015 07/25/2016 Inactive Klor-Con M20 mEq tablet,extended release RxNorm: 9176332 TAKE 1 TABLET EVERY MORNING 11/01/2015 10/25/2016 Inactive Flonase Allergy Relief 50 mcg/actuation nasal spray,suspension RxNorm: 2 [place] NASAL daily 07/20/2015 No Stop Date Active Kenalog 40 mg/mL suspension for injection RxNorm: 8573298 Milliliter(s) Inj 02/02/2015 02/02/2015 Inactive Crestor 5 mg tablet RxNorm: 416053 1/2 Tablet(s) PO daily 10/05/2014 09/29/2015 Inactive metoprolol tartrate 100 mg tablet RxNorm: 392068 1 Tablet(s) PO BID 10/05/2014 12/28/2015 Inactive Plavix 75 mg tablet RxNorm: 677487 1 Tablet(s) PO daily 10/05/2014 03/07/2015 Inactive Klor-Con M20 mEq tablet,extended release RxNorm: 938095 1 Tablet(s) PO QAM 10/05/2014 10/31/2015 Inactive Lasix 40 mg tablet RxNorm: 1 Tablet(s) PO daily 10/05/2014 10/31/2015 Inactive Efudex 5 % topical cream RxNorm: 167002 1 Application TOP BID x 2 weeks, allow healing x 1 -2 weeks, then reuse 10/05/2014 07/05/2015 Inactive Pradaxa 150 mg capsule RxNorm: 0578922 1 Capsule(s) PO BID 10/05/2014 04/09/2017 Inactive amlodipine 10 mg tablet RxNorm: 846618 1/2 Tablet(s) PO QAM 10/05/2014 07/05/2015 Inactive Efudex 5 % topical cream RxNorm: 719938 1 Application TOP BID x 2 weeks, allow healing x 1 -2 weeks, then reuse 09/22/2014 10/04/2014 Inactive Klor-Con M20 mEq tablet,extended release RxNorm: 650785 1 Tablet(s) PO QAM 09/22/2014 10/04/2014 Inactive Lasix 40 mg tablet RxNorm: 941273 1 Tablet(s) PO daily 09/22/2014 10/04/2014 Inactive Cartia XT 180 mg capsule,extended release RxNorm: 554831 2 Capsule(s) PO daily No Start Date Active cetirizine 10 mg tablet RxNorm: 9094453 1 Tablet(s) PO daily at lunch No Start Date Active Canasa 1,000 mg rectal suppository RxNorm: 180210 [address] seymour No Start Date Active Lialda 1.2 gram tablet,delayed release RxNorm: 137876 1 Tablet(s) PO QHS -Prescried by Dr. Seymour No Start Date Active Centrum Silver oral RxNorm: 67023 oral No Start Date Active Eliquis 5 mg tablet RxNorm: 9323938 1 Tablet(s) PO BID Dr Avila No Start Date Active aspirin 81 mg capsule,delayed release RxNorm: 741701 1 Capsule(s) PO daily No Start Date Active losartan 25 mg tablet RxNorm: 304488 1 Tablet(s) PO QPM at supper No Start Date Active digoxin 250 mcg tablet RxNorm: 225391 1 Tablet(s) PO daily No Start Date Active Vitamin D3 5,000 unit tablet RxNorm: 369286 1 Tablet(s) PO BID No Start Date Active Probiotic oral RxNorm: 6205 oral No Start Date Active Glucosamine Chondroit Complx Advan oral RxNorm: oral No Start Date Active Plavix 75 mg tablet RxNorm: 531882 1 Tablet(s) PO daily No Start Date 10/04/2014 Inactive Klor-Con M20 mEq tablet,extended release RxNorm: 579118 1 Tablet(s) PO QAM No Start Date 09/21/2014 Inactive Imodium oral RxNorm: oral No Start Date 11/22/2015 Inactive Lasix 40 mg tablet RxNorm: 751661 1 Tablet(s) PO daily No Start Date 09/21/2014 Inactive amlodipine 10 mg tablet RxNorm: 092280 1/2 Tablet(s) PO QAM No Start Date 10/04/2014 Inactive Crestor 5 mg tablet RxNorm: 400672 1/2 Tablet(s) PO daily No Start Date 10/04/2014 Inactive Flonase Allergy Relief 50 mcg/actuation nasal spray,suspension RxNorm: 1 [place] NASAL daily No Start Date 07/19/2015 Inactive metoprolol tartrate 100 mg tablet RxNorm: 237735 1 Tablet(s) PO BID No Start Date 10/04/2014 Inactive Probiotic 4X oral RxNorm: 6336673 oral No Start Date 07/06/2015 Inactive Pradaxa 150 mg capsule RxNorm: 1269295 1 Capsule(s) PO BID No Start Date 10/04/2014 Inactive Medication Administered Medication Codes Instructions Start Date Status ceftriaxone 500 mg solution for injection RxNorm: 9532617 02/28/2018 No longer Active Kenalog 40 mg/mL suspension for injection RxNorm: 5657251 Milliliter 02/26/2018 No longer Active Kenalog 40 mg/mL suspension for injection RxNorm: 0988866 Milliliter 06/29/2017 No longer Active ceftriaxone 500 mg solution for injection RxNorm: 1289902 02/06/2017 No longer Active Kenalog 40 mg/mL suspension for injection RxNorm: 5183766 1Milliliter 09/27/2016 No longer Active ceftriaxone 500 mg solution for injection RxNorm: 1974428 1Milliliter 09/27/2016 No longer Active Kenalog 40 mg/mL suspension for injection RxNorm: 7265905 Milliliter 02/02/2015 No longer Active Immunizations Vaccine Codes Date Status SHINGARIX CVX: 121 01/07/2018 completed Influenza CVX: 141 12/26/2017 completed Pneumococcal CVX: 133 12/26/2017 completed Influenza CVX: 141 01/10/2017 completed Influenza CVX: 141 01/07/2016 completed Influenza CVX: 141 12/01/2013 completed Zoster CVX: 121 04/02/2011 completed Pneumococcal CVX: 33 09/01/2007 completed Assessments Condition Codes Effective Dates Chronic atrial fibrillation ICD-10: I48.2 ICD-9: 427.31 [...] 477.9 02/02/2015 ACTINIC KERATOSIS ICD-9: 702.0 09/22/2014 HYPERLIPIDEMIA ICD-9: 272.4 09/22/2014 ESSENTIAL HYPERTENSION ICD-9: 401.9 09/22/2014 Reason For Visit Reason For Visit Effective Dates Notes voice change 04/23/2018 sinus congestion 02/28/2018 sinus [...] 31.4 pg 10/23/2017 Cbc With Differential Ord2 [place]% 8.5 % 10/23/2017 Cbc With Differential Ord2 [...] 2.73 K/ul 10/23/2017 Cbc With Differential Ord2 [place] ABS# 0.9 K/ul 10/23/2017 Cbc With Differential Ord2 Eos ABS# 0.6 K/ul 10/23/2017 Cbc With Differential Ord2 Baso ABS# 0.0 K/ul 10/23/2017 Digoxin Ord9 DIGOXIN 1.0 NG/ML 10/23/2017 Comp Metabolic Nsg549 NA 140 mEq/L 10/23/2017 Comp Metabolic Lls807 K 4.1 mEq/L 10/23/2017 Comp Metabolic Qgp733 CL 102 mEq/L 10/23/2017 Comp Metabolic Xyg304 CO2 30.0 mEq/L 10/23/2017 Comp Metabolic Zwf874 ANION GAP 12 10/23/2017 Comp Metabolic Yrc704 GLUCOSE 124 mg/dL 10/23/2017 Comp Metabolic Cnv051 Creat 1.1 mg/dL 10/23/2017 Comp Metabolic Npr724 eGFR 71 ml/min/1.73m2 10/23/2017 Comp Metabolic Jlh015 BUN 11 mg/dL 10/23/2017 Comp Metabolic Xbp245 B/C Ratio 10.2 Ratio 10/23/2017 Comp Metabolic Xnp329 CALCIUM 9.3 mg/dL 10/23/2017 Comp Metabolic Wls824 ALK PHOS 72 U/L 10/23/2017 Comp Metabolic Qsr356 AST(SGOT) 21 U/L 10/23/2017 Comp Metabolic Haf364 ALT(SGPT) 17 U/L 10/23/2017 Comp Metabolic Wbj275 BILI T 0.8 mg/dL 10/23/2017 Comp Metabolic Jhv515 ALBUMIN 4.3 g/dL 10/23/2017 Comp Metabolic Pyk996 TPRO 7.4 g/dL 10/23/2017 Comp Metabolic Bke638 GLOB 3.1 g/dL 10/23/2017 Comp Metabolic Qjj365 A/G Ratio 1.4 Ratio 10/23/2017 Comp Metabolic Zqd281 Osmo 280 mOsmo 10/23/2017 Tsh Ord6 TSH (3rd IS) 3.37 uIU/mL 10/23/2017 Test(s) Not Perfromed [id number] Test(s) Not Performed Test(s) Not Performed. See Below: 10/23/2017 Test(s) Not Perfromed [id number] TEST NAME PSA 10/23/2017 Test(s) Not Perfromed [id number] Rejection Reason PSA Performed yearly at Dr. 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 Gian Johnson 10/23/2017 Lipid Ord30 CHOL 108 mg/dL 10/23/2017 Lipid Ord30 HDL 39.0 mg/dl 10/23/2017 Lipid Ord30 TRIG 175 mg/dL 10/23/2017 Lipid Ord30 LDL 34 mg/dL 10/23/2017 Lipid Ord30 C/HDL 2.8 Ratio 10/23/2017 Comp Metabolic Ftu741 NA 137 mEq/L 03/21/2016 Comp Metabolic Kzq833 K 4.6 mEq/L 03/21/2016 Comp Metabolic Pwt552 CL 101 mEq/L 03/21/2016 Comp Metabolic Djm771 CO2 31.0 mEq/L 03/21/2016 Comp Metabolic Cis776 ANION GAP 10 03/21/2016 Comp Metabolic Edm142 GLUCOSE 106 mg/dL 03/21/2016 Comp Metabolic Ljn561 Creat 1.1 mg/dL 03/21/2016 Comp Metabolic Bwq717 eGFR 69 ml/min/1.73m2 03/21/2016 Comp Metabolic Zjr830 BUN 11 mg/dL 03/21/2016 Comp Metabolic Rpw261 B/C Ratio 9.9 Ratio 03/21/2016 Comp Metabolic Xlp540 CALCIUM 9.5 mg/dL 03/21/2016 Comp Metabolic Wuw280 ALK PHOS 88 U/L 03/21/2016 Comp Metabolic Vib144 AST(SGOT) 21 U/L 03/21/2016 Comp Metabolic Gqi776 ALT(SGPT) 15 U/L 03/21/2016 Comp Metabolic Mpz746 BILI T 0.7 mg/dL 03/21/2016 Comp Metabolic Oop763 ALBUMIN 4.2 g/dL 03/21/2016 Comp Metabolic Syb016 TPRO 7.9 g/dL 03/21/2016 Comp Metabolic Nqu764 GLOB 3.7 g/dL 03/21/2016 Comp Metabolic Wcr313 A/G Ratio 1.1 Ratio 03/21/2016 Comp Metabolic Mbx340 Osmo 274 mOsmo 03/21/2016 Lipid Ord30 CHOL 107 mg/dL 03/21/2016 Lipid Ord30 HDL 42.0 mg/dl 03/21/2016 Lipid Ord30 TRIG 178 mg/dL 03/21/2016 Lipid Ord30 LDL 29 mg/dL 03/21/2016 Lipid Ord30 C/HDL 2.5 Ratio 03/21/2016 Tsh Ord6 hTSH II 3.16 uIU/mL 03/21/2016 Cbc With Differential Ord2 WBC 12.03 [...] 31.3 pg 03/21/2016 Cbc With Differential Ord2 [place]% 10.3 % 03/21/2016 Cbc With Differential Ord2 [...] 2.51 K/ul 03/21/2016 Cbc With Differential Ord2 [place] ABS# 1.2 K/ul 03/21/2016 Cbc With Differential Ord2 Eos ABS# 0.7 K/ul 03/21/2016 Cbc With Differential Ord2 Baso ABS# 0.0 K/ul 03/21/2016 Digoxin Ord9 DIGOXIN 0.5 NG/ML 03/21/2016 Clostridium Diff Tox A/B Ciu937 Cdiff Negative 02/01/2016 Culture Mrsa [id number] MRSA CULTURE SEE NOTES 04/09/2015 Metabolic Ord15 NA 139 mEq/L 04/07/2015 Metabolic [...] mg/dL 04/07/2015 Hgb & Hct Ord65 HGB 13.3 g/dL 04/07/2015 Hgb & Hct Ord65 HCT 41.7 % 04/07/2015 Digoxin Ord9 DIGOXIN 0.9 NG/ML 04/07/2015 Hgb & Hct Ord65 HGB 12.4 [...] Ord9 DIGOXIN 1.0 NG/ML 03/11/2015 Comp Metabolic Jmb629 NA 142 mEq/L 03/11/2015 Comp Metabolic Xlb393 K 4.4 mEq/L 03/11/2015 Comp Metabolic Hkr032 CL 107 mEq/L 03/11/2015 Comp Metabolic Hov914 CO2 27.0 mEq/L 03/11/2015 Comp Metabolic Qam532 ANION GAP 12 03/11/2015 Comp Metabolic Syi003 GLUCOSE 106 mg/dL 03/11/2015 Comp Metabolic Euv673 Creat 1.1 mg/dL 03/11/2015 Comp Metabolic Kyl081 eGFR 68 ml/min/1.73m2 03/11/2015 Comp Metabolic Iow084 BUN 16 mg/dL 03/11/2015 Comp Metabolic Tia623 B/C Ratio 14.3 Ratio 03/11/2015 Comp Metabolic Cno346 CALCIUM 9.5 mg/dL 03/11/2015 Comp Metabolic Jam231 ALK PHOS 82 U/L 03/11/2015 Comp Metabolic Sea840 AST(SGOT) 20 U/L 03/11/2015 Comp Metabolic Cdu831 ALT(SGPT) 17 U/L 03/11/2015 Comp Metabolic Sii798 BILI T 0.4 mg/dL 03/11/2015 Comp Metabolic Ind257 ALBUMIN 4.0 g/dL 03/11/2015 Comp Metabolic Hnc010 TPRO 6.9 g/dL 03/11/2015 Comp Metabolic Xpm429 GLOB 2.9 g/dL 03/11/2015 Comp Metabolic Dhh888 A/G Ratio 1.4 Ratio 03/11/2015 Comp Metabolic Ptm037 Osmo 285 mOsmo 03/11/2015 Metabolic Ord15 NA [...] Systems System Result Effective Dates Constitutional No anorexia 04/23/2018 Constitutional No night [...] Result Effective Dates Notes Full Exam - General 1994 Constitutional general [...] inspection of skin Location: face 04/23/2018 right uatsdin, forehead, left uatsdin - irrirated actinic keratosis Full Exam - [...] inspection of skin Location: face 10/22/2017 right uatsdin, forehead, left uatsdin - irrirated actinic keratosis Full Exam - [...] 1995 Ears/Nose/Throat oral cavity/pharynx/larynx Overall: hypopharynx benign 04/10/2017 [...] inspection of skin Location: face 03/21/2016 right uatsdin, forehead, left uatsdin - irrirated actinic keratosis Full Exam - [...] inspection of skin Location: face 11/23/2015 right uatsdin, left uatsdin - irrirated actinic keratosis Full Exam - [...] inspection of skin Location: face 07/06/2015 right uatsdin, forehead, left uatsdin - irrirated actinic keratosis Full Exam - [...] Procedure Codes Date THER/PROPH/DIAG INJ SC/IM CPT-4: 68234 02/28/2018 ROCEPHIN, PER 250 MG CPT- 4: J0696 02/28/2018 THER/PROPH/DIAG INJ SC/IM CPT-4: 17340 02/26/2018 TRIAMCINOLONE ACET INJ NOS CPT-4: J3301 02/26/2018 PPPS, SUBSEQ VISIT CPT- 4: G0439 2017 TRIAMCINOLONE ACET INJ NOS CPT-4: J3301 06/29/2017 THER/PROPH/DIAG INJ SC/IM CPT-4: 11562 02/06/2017 ROCEPHIN, PER 250 MG CPT- 4: J0696 02/06/2017 ROCEPHIN, PER 250 MG CPT- 4: J0696 09/27/2016 TRIAMCINOLONE ACET INJ NOS CPT-4: J3301 09/27/2016 THER/PROPH/DIAG INJ SC/IM CPT-4: 47339 09/27/2016 DESTRUCT PREMALG LESION CPT-4: 60863 10/14/2015 DESTRUCT PREMALG LESION CPT-4: 99728 07/20/2015 DESTRUCT PREMALG LESION CPT-4: 28982 07/06/2015 DESTRUCT PREMALG LES 2-14 CPT-4: 73299 07/06/2015 TRIAMCINOLONE ACET INJ NOS CPT-4: J3301 02/02/2015 Vital Signs Date Vital 04/23/2018 Blood Pressure 1: 130/72 Code: 8480-6 BMI: 30.1 Code: 50761-1 Heart Rate 1: 74 bpm Height: 5'8" SpO2: 97% Weight: 198 lbs 02/28/2018 Blood Pressure 1: 124/72 Code: 8480-6 BMI: 30.0 Code: 49740-4 Heart Rate 1: 69 bpm Height: 5'8" SpO2: 97% Temperature: 36.6 (C) / 97.8 (F) Weight: 197 lbs 02/19/2018 Blood Pressure 1: 128/76 Code: 8480-6 BMI: 30.0 Code: 11342-4 Heart Rate 1: 66 bpm Height: 5'8" SpO2: 97% Weight: 197 lbs 11/09/2017 Blood Pressure 1: 130/74 Code: 8480-6 BMI: 29.3 Code: 73532-7 Heart Rate 1: 81 bpm Height: 5'8" SpO2: 98% Temperature: 36.6 (C) / 97.9 (F) Weight: 193 lbs 10/22/2017 Blood Pressure 1: 132/82 Code: 8480-6 BMI: 29.0 Code: 30933-9 Heart Rate 1: 80 bpm Height: 5'8" SpO2: 98% Weight: 191 lbs 2017 Blood Pressure 1: 142/68 Code: 8480-6 BMI: 28.7 Code: 61794-6 Heart Rate 1: 62 bpm Height: 5'8" SpO2: 98% Waist Measure (cm): 102 cm Weight: 189 lbs 07/23/2017 Blood Pressure 1: 138/84 Code: 8480-6 BMI: 29.0 Code: 62952-4 Heart Rate 1: 69 bpm Height: 5'8" SpO2: 98% Weight: 191 lbs 07/09/2017 Blood Pressure 1: 120/82 Code: 8480-6 BMI: 29.2 Code: 40063-1 Heart Rate 1: 80 bpm Height: 5'8" SpO2: 98% Weight: 192 lbs 06/29/2017 Blood Pressure 1: 140/82 Code: 8480-6 BMI: 29.5 Code: 27698-7 Heart Rate 1: 83 bpm Height: 5'8" SpO2: 98% Weight: 194 lbs 04/23/2017 Blood Pressure 1: 132/74 Code: 8480-6 BMI: 28.4 Code: 20350-2 Heart Rate 1: 78 bpm Height: 5'8" SpO2: 97% Weight: 187 lbs 04/10/2017 Blood Pressure 1: 126/68 Code: 8480-6 BMI: 29.5 Code: 74484-5 Heart Rate 1: 68 bpm Height: 5'8" SpO2: 92% Temperature: 37.5 (C) / 99.5 (F) Weight: 194 lbs 03/29/2017 Blood Pressure 1: 116/76 Code: 8480-6 BMI: 29.6 Code: 18954-4 Heart Rate 1: 61 bpm Height: 5'8" SpO2: 98% Weight: 195 lbs 02/06/2017 Blood Pressure 1: 130/74 Code: 8480-6 BMI: 30.4 Code: 03795-5 Heart Rate 1: 71 bpm Height: 5'8" SpO2: 98% Weight: 200 lbs 11/06/2016 Blood Pressure 1: 140/74 Code: 8480-6 BMI: 29.5 Code: 05890-9 Heart Rate 1: 76 bpm Height: 5'8" SpO2: 96% Weight: 194 lbs 09/27/2016 Blood Pressure 1: 138/78 Code: 8480-6 BMI: 29.6 Code: 36652-5 Heart Rate 1: 68 bpm Height: 5'8" SpO2: 97% Weight: 195 lbs 03/21/2016 Blood Pressure 1: 148/82 Code: 8480-6 BMI: 30.6 Code: 74519-5 Heart Rate 1: 67 bpm Height: 5'8" SpO2: 98% Weight: 201 lbs 02/01/2016 Blood Pressure 1: 128/86 Code: 8480-6 BMI: 30.3 Code: 39001-7 Heart Rate 1: 84 bpm Height: 5'8" SpO2: 96% Weight: 199 lbs 11/23/2015 Blood Pressure 1: 132/76 Code: 8480-6 BMI: 30.4 Code: 63787-1 Heart Rate 1: 81 bpm Height: 5'8" SpO2: 98% Weight: 200 lbs 10/14/2015 Blood Pressure 1: 120/80 Code: 8480-6 BMI: 30.4 Code: 47239-2 Heart Rate 1: 87 bpm Height: 5'8" SpO2: 97% Weight: 200 lbs 07/20/2015 Blood Pressure 1: 132/84 Code: 8480-6 BMI: 31.0 Code: 26143-1 Heart Rate 1: 78 bpm Height: 5'8" SpO2: 96% Weight: 204 lbs 07/06/2015 Blood Pressure 1: 130/78 Code: 8480-6 BMI: 31.0 Code: 88804-3 Heart Rate 1: 80 bpm Height: 5'8" SpO2: 98% Weight: 204 lbs 03/29/2015 Blood Pressure 1: 132/82 Code: 8480-6 BMI: 29.6 Code: 64583-5 Heart Rate 1: 76 bpm Height: 5'8" SpO2: 96% Weight: 195 lbs 03/08/2015 Blood Pressure 1: 126/84 Code: 8480-6 BMI: 30.2 Code: 44174-8 Heart Rate 1: 101 bpm Height: 5'8" SpO2: 98% Weight: 198 lbs 8 oz 02/02/2015 Blood Pressure 1: 132/86 Code: 8480-6 Heart Rate 1: 86 bpm SpO2: 98% Temperature: 36.6 (C) / 97.8 (F) Weight: 198 lbs 09/22/2014 Blood Pressure 1: 128/80 Code: 8480-6 BMI: 29.3 Code: 72048-7 Heart Rate 1: 85 bpm Height: 5'8" SpO2: 98% Weight: 193 lbs Functional Status No Functional Status data History of Present Illness Symptom Name Status Result Effective Date Notes Quality intermittent 04/23/2018 None Onset and Resolution [...] data Encounters Encounter Performer Location Codes Date [id number]) [id number] EST. PATIENT, LEVEL IV Diagnosis: Essential (primary) hypertension[ICD10: I10] Diagnosis: Chronic atrial fibrillation[ICD10: I48.2] Diagnosis: Mixed hyperlipidemia[ICD10: E78.2] Steffany Parsons MD, [facility] CPT- 4: 58235 04/23/2018 [id number] EST. PATIENT, LEVEL IV Diagnosis: Other acute sinusitis[ICD10: J01.80] Diagnosis: Other allergic rhinitis[ICD10: J30.89] Sandra Parsons MD, [facility] CPT- 4: 50433 02/28/2018 01017 EST. PATIENT, LEVEL IV Diagnosis: Other acute sinusitis[ICD10: J01.80] Diagnosis: Other allergic rhinitis[ICD10: J30.89] Sandra Parsons MD, [facility] CPT- 4: 45922 02/19/2018 [id number] EST. PATIENT, LEVEL III Diagnosis: Acute laryngopharyngitis[ICD10: J06.0] Diagnosis: Other allergic rhinitis[ICD10: J30.89] Sandra Parsons MD, [facility] CPT- 4: 38421 11/09/2017 [id number]) 74029 EST. PATIENT, LEVEL IV Diagnosis: Essential (primary) hypertension[ICD10: I10] Diagnosis: Chronic atrial fibrillation[ICD10: I48.2] Steffany Parsons MD, [facility] CPT-4: 72809 10/22/2017 ([id number]) [id number] EST. PATIENT, LEVEL IV Diagnosis: Essential (primary) hypertension[ICD10: I10] Diagnosis: Chronic atrial fibrillation[ICD10: I48.2] Diagnosis: Cough[ICD10: R05] Steffany Parsons MD, [facility] CPT-4: 01362 07/23/2017 ([id number]) 33088 EST. PATIENT, LEVEL III Diagnosis: Cough[ICD10: R05] Diagnosis: Other allergic rhinitis[ICD10: J30.89] Diagnosis: Chronic obstructive pulmonary disease with (acute) exacerbation[ICD10: J44.1] Lucrecia Parsons MD, [facility] CPT-4: 05607 07/09/2017 ([id number]) 42606 EST. PATIENT, LEVEL III Diagnosis: Cough[ICD10: R05] Diagnosis: Other allergic rhinitis[ICD10: J30.89] Diagnosis: Chronic obstructive pulmonary disease with (acute) exacerbation[ICD10: J44.1] Lucrecia Parsons MD, [facility] CPT-4: 21594 06/29/2017 ([id number]) 76728 EST. PATIENT, LEVEL III Diagnosis: Essential (primary) hypertension[ICD10: I10] Diagnosis: Cough[ICD10: R05] Steffany Parsons MD, [facility] CPT-4: 40229 04/23/2017 ([id number]) 28154 EST. PATIENT, LEVEL IV Diagnosis: Hemoptysis[ICD10: R04.2] Diagnosis: Essential (primary) hypertension[ICD10: I10] Diagnosis: Chronic obstructive pulmonary disease with acute lower respiratory infection[ICD10: J44.0] Steffany Parsons MD, [facility] CPT-4: 66288 04/10/2017 [id number] EST. PATIENT, LEVEL III Diagnosis: Acute laryngopharyngitis[ICD10: J06.0] Diagnosis: Other allergic rhinitis[ICD10: J30.89] Sandra Parsons MD, [facility] CPT- 4: 32239 03/29/2017 ([id number]) 34824 EST. PATIENT, LEVEL III Diagnosis: Pneumonia due to Mycoplasma pneumoniae[ICD10: J15.7] Diagnosis: Cough[ICD10: R05] Diagnosis: Other chest pain[ICD10: R07.89] Steffany Parsons MD, [facility] CPT-4: 04050 02/06/2017 [id number] EST. PATIENT, LEVEL IV Diagnosis: Cough[ICD10: R05] Diagnosis: Shortness of breath[ICD10: R06.02] Diagnosis: Gastro-esophageal reflux disease without esophagitis[ICD10: K21.9] Sandra Parsons MD, [facility] CPT-4: 68239 11/06/2016 [id number] EST. PATIENT, LEVEL IV Diagnosis: Other allergic rhinitis[ICD10: J30.89] Diagnosis: Acute bronchitis due to other specified organisms[ICD10: J20.8] Sandra Parsons MD, [facility] [facility] 28283 09/27/2016 ([id number]) 13673 EST. PATIENT, LEVEL IV Diagnosis: Essential (primary) hypertension[ICD10: I10] Diagnosis: Chronic atrial fibrillation[ICD10: I48.2] Diagnosis: Encounter for therapeutic drug level monitoring[ICD10: Z51.81] Steffany Parsons MD, [facility] CPT-4: 93307 03/21/2016 ([id number]) 99035 EST. 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 PATIENT, LEVEL III Diagnosis: Allergic rhinitis due to pollen[ICD10: J30.1] Diagnosis: Actinic keratosis[ICD10: L57.0] Lucrecia Parsons MD, [facility] CPT-4: 18734 10/14/2015 ([id number]) 55390 EST. PATIENT, LEVEL IV Diagnosis: Essential (primary) hypertension[ICD10: I10] Diagnosis: Chronic atrial fibrillation[ICD10: I48.2] Steffany Parsons MD, [facility] CPT-4: 95426 07/06/2015 87623 EST. PATIENT, LEVEL III Diagnosis: Essential (primary) hypertension[ICD10: I10] Diagnosis: Chronic atrial fibrillation[ICD10: I48.2] Diagnosis: Shortness of breath[ICD10: R06.02] Diagnosis: Melena[ICD10: K92.1] Sandra Parsons MD, [facility] CPT-4: 20186 03/29/2015 ([id number]) 55209 EST. PATIENT, LEVEL IV Diagnosis: Essential (primary) hypertension[ICD10: I10] Diagnosis: Chronic atrial fibrillation[ICD10: I48.2] Diagnosis: Cough[ICD10: R05] Steffany Parsons MD, [facility] CPT-4: 74466 03/08/2015 ([id number]) 91128 EST. PATIENT, LEVEL III Diagnosis: Other seasonal allergic rhinitis[ICD10: J30.2] Diagnosis: Other lesions of oral mucosa[ICD10: K13.79] Lucrecia Parsons MD, [facility] CPT-4: 13925 02/02/2015 ([id number]) OFFICE VISIT, NEW - LEVEL 4 Diagnosis: ESSENTIAL HYPERTENSION[ICD9: 401.9] Diagnosis: HYPERLIPIDEMIA[ICD9: 272.4] Diagnosis: ACTINIC KERATOSIS[ICD9: 702.0] Steffany Parsons MD, [facility] CPT-4: 68039 09/22/2014 Plan of Care Planned Activity Notes Codes Status Date Visit Plan: Hypertension - well controlled - [...] work this up at this time. 04/23/2018 Patient Education: Patient Medication Summary Completed [...] allergy spray. 02/28/2018 Appointment: Sandra Tim WPtel: [address] [place], [place] [address] (15 min) Moderate 02/28/2018 [...] allergy spray. 02/19/2018 Appointment: Sandra Tim WPtel: [facility]9 [facility] (15 min) Moderate 02/19/2018 Patient Education: Patient [...] spray. 11/09/2017 Appointment: Sandra Tim WPtel: [phone] (15 min) Moderate 11/09/2017 Patient Education: [...] becoming uncontrolled. 10/22/2017 Appointment: Steffany Parsons WPtel: [phone] [facility] [address] (15 min) Moderate 10/22/2017 Patient Education: Patient [...] Appointment: Steffany Parsons WPtel: [phone] [facility] [address] (15 min) Moderate 07/23/2017 Patient Education: Patient [...] changes. 07/09/2017 Appointment: [phone] (30 min) Complex 07/09/2017 Patient Education: [...] changes. 06/29/2017 Appointment: Lucrecia Yeager WPtel: [phone] [phone] [place] (15 min) Moderate 06/29/2017 Patient Education: Patient Medication Summary Completed 06/29/2017 Appointment: Steffany Parsons WPtel: [facility]4 [facility] [address] (15 min) Moderate 04/30/2017 Visit Plan: Hypertension [...] Appointment: Steffany Parsons WPtel: 1015 [facility] [address] (15 min) Moderate 04/23/2017 Patient Education: Patient Medication Summary Completed 04/23/2017 Visit Plan: Hemoptysis and COPD exacerbation - continue with antibiotics, rx for antifungal tablet and suspension. chest xray ordered, monitor symptoms. Pt to stop aspirin x 1 week, continue with eliquis. call if s ymptoms are not improving. rx for phenergan with codeine. 04/10/2017 Appointment: Steffany Parsons WPtel: [phone] [facility] [address] [place] (15 min) Moderate 04/10/2017 Patient Education: [...] allergy spray. 03/29/2017 Appointment: Sandra Tim WPtel: [facility]7 [facility]66[facility] (15 min) Moderate 03/29/2017 [...] for cough. 02/06/2017 Appointment: Steffany Parsons WPtel: [facility]1 [facility] [address] (15 min) Moderate 02/06/2017 [...] not improving. 11/06/2016 Appointment: Sandra Tim WPtel: 101 [facility] (15 min) Moderate 11/06/2016 Patient Education: [...] worsen. 09/27/2016 Appointment: Sandra Tim WPtel: [phone] [facility] (30 min) Complex 09/27/2016 Patient Education: Patient [...] uncontrolled. 03/21/2016 Appointment: Steffany Parsons WPtel: [phone] [facility] [address] (15 min) Moderate 03/21/2016 Patient Education: Patient Medication Summary Completed 03/21/2016 Patient Education: Obesity Completed 03/21/2016 Visit Plan: Diarrhea-recent abx use-check stool for cdiff-increase probiotic to twice daily-bland diet advance as tolerated-call if symptoms do not resolve or if any worse. Patient verbalized understanding of plan. 02/01/2016 Appointment: Lucrecia Yeager WPtel: [phone] [phone] (15 min) Moderate 02/01/2016 Patient Education: Patient Medication Summary Completed 02/01/2016 Patient Education: Obesity Completed 02/01/2016 Referral: Alexi Honeycutt [address] Info faxed Completed 11/27/2015 Visit Plan: [...] Summary Completed 11/23/2015 Appointment: Steffany Parsons WPtel: [facility]4 [address] (15 min) Moderate 11/15/2015 Visit Plan: [...] not heal 10/14/2015 Appointment: Lucrecia Yeager WPtel: [facility]7 [phone] (15 min) Moderate 10/14/2015 Patient Education: [...] acute concerns. 07/20/2015 Appointment: Lucrecia Yeager WPtel: [facility] [place] [phone] (30 min) Complex 07/20/2015 Patient Education: Patient [...] concerns. 07/06/2015 Appointment: Steffany Parsons WPtel: [phone] [facility] (15 min) Moderate 07/06/2015 Patient Education: Patient [...] - pt has an upcoming appointment with hub inventory specialist to possibly have an ablation done. [...] Patient Education: Hypertension Completed 03/08/2015 [facility] Ref[facility] Completed 02/13/2015 Visit Plan: Allergies - [...] 02/02/2015 Care Plan: Referral Order SNOMED-CT : [id number] Ordered 02/02/2015 Visit Plan: Hypertension - well [...] improving. 09/22/2014 Appointment: Steffany Parsons WPtel: [address] [place], [place] [address] [place] ([place]) New Patient 09/22/2014 Patient Education: Patient Medication Summary Completed 09/22/2014 Patient Education: Hypertension Completed 09/22/2014 [facility] Referral Initiated Instructions Comment . Hypertension - [...] to work this up at this time. increase the flonase to twice daily use [...] - pt has an upcoming appointment with hub inventory specialist to possibly have an ablation done. [...] the nose - (ocean nasal spray) . Allergies - chronic - recommended pt [...] to keep appt with Dr. Avila - . Hypertension - well controlled - continue with current medications, continue with no added salt diet. Pt has been encouraged to exercise daily. The pt has been advised to call the office if there are any acute concerns about change in blood pressure readings at home. Cough, shortness of breath - resolved finish breathing treatments. . Wound Instructions - Pt was instructed to keep the wound clean, wash with antibacterial soap, use triple antibiotic ointment, call if redness, pustular drainage, or any other acute concerns.
[2018-08-31 19:13] VITALS: BP 151/74
--- OUTSIDE RECORDS SUMMARY | 2018-08-31 19:14 | XMS REPORT | CCD ---
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 Role Phone PP Unavailable CCM Unavailable Summary Purpose Interface Exchange Insurance Providers Payer name Policy type / Coverage type Covered constitution party ID Effective Begin Date Effective End Date [facility] Commercial Insurance [id number] Unknown Unknown Family history Father Diagnosis Age At Onset Prostate Cancer Unknown Runs in the family Diagnosis Age At Onset Hypertension Unknown Mother Diagnosis Age At Onset No Family Disease Entered N/A Social History Social History Element Codes Description Effective Dates Marital status Unknown Mary 02/06/2017 Number of children Unknown 5 09/22/[address]: 7261690 Quit over 10 years ago 09/22/[address]: 384980785 Never drinks alcohol 09/22/2014 Allergies, Adverse Reactions, [...] ICD-9: 465.0 ICD-10: J06.0 Active 03/29/2017 Unknown Chronic atrial fibrillation ICD-9: 427.31 ICD-10: I48.2 Active 03/20/2016 Unknown Essential (primary) hypertension ICD-9: 401.9 ICD-10: I10 Active 09/21/2014 Unknown Encounter for general adult medical examination [...] laryngopharyngitis ICD-9: 465.0 ICD-10: J06.0 03/29/2017 Active Chronic atrial fibrillation ICD-9: 427.31 ICD-10: I48.2 03/20/2016 Active Essential (primary) hypertension ICD-9: 401.9 ICD-10: I10 09/21/2014 Active Encounter for general adult medical examination [...] Fill Instructions Lasix 40 mg tablet RxNorm: 870581 TAKE 1 TABLET DAILY 04/22/2018 No Stop Date Active prednisone 20 mg tablet RxNorm: 738125 2 Tablet(s) PO daily 02/28/2018 03/04/2018 Inactive START TOMORROW Keflex 500 mg capsule RxNorm: 697904 1 Capsule(s) PO TID 02/28/2018 03/09/2018 Inactive ceftriaxone 500 mg solution for injection RxNorm: 2143200 Inj 02/28/2018 02/28/2018 Inactive Kenalog 40 mg/mL suspension for injection RxNorm: 4873822 Milliliter(s) Inj 02/26/2018 02/26/2018 Inactive Keflex 500 mg capsule RxNorm: 186430 1 Capsule(s) PO TID 02/19/2018 02/25/2018 Inactive Klor-Con M20 mEq tablet,extended release RxNorm: 4367048 TAKE 1 TABLET EVERY MORNING 12/04/2017 No Stop Date Active prednisone 20 mg tablet RxNorm: 060959 2 Tablet(s) PO daily 11/16/2017 11/20/2017 Inactive START TOMORROW Zithromax Z-Mau 250 mg tablet RxNorm: 256585 1 Tablet(s) PO daily 11/16/2017 11/20/2017 Inactive Zithromax Z-Mau 250 mg tablet RxNorm: 498999 1 Tablet(s) PO daily 11/16/2017 11/15/2017 Inactive Keflex 500 mg capsule RxNorm: 861294 1 Capsule(s) PO TID 11/09/2017 11/15/2017 Inactive Zithromax 250 mg tablet RxNorm: 293916 [address] day and 1 tab po on day 2-5 Tablet(s) PO 08/30/2017 09/03/2017 Inactive zpack x 1 doxycycline hyclate 100 mg tablet RxNorm: 042441 1 Tablet(s) PO BID 07/09/2017 07/15/2017 Inactive prednisone 20 mg tablet RxNorm: 402018 2 Tablet(s) PO daily 06/29/2017 07/01/2017 Inactive START TOMORROW Kenalog 40 mg/mL suspension for injection RxNorm: 8442127 Milliliter(s) Inj 06/29/2017 06/29/2017 Inactive Lasix 40 mg tablet RxNorm: 578114 TAKE 1 TABLET DAILY 04/24/2017 04/21/2018 Inactive Diflucan 150 mg tablet RxNorm: 222499 1 Tablet(s) PO daily 04/10/2017 04/16/2017 Inactive Bactrim DS 800 mg-160 mg tablet RxNorm: 107664 1 Tablet(s) PO BID 04/10/2017 04/16/2017 Inactive nystatin 100,000 unit/mL oral suspension RxNorm: 569004 5 Milliliter(s) PO QID 04/10/2017 04/19/2017 Inactive cefdinir 300 mg capsule RxNorm: 373848 1 Capsule(s) PO BID 03/28/2017 04/06/2017 Inactive cefdinir 300 mg capsule RxNorm: 624865 1 Capsule(s) PO BID 02/06/2017 02/15/2017 Inactive ceftriaxone 500 mg solution for injection RxNorm: 9961481 Inj 02/06/2017 02/06/2017 Inactive omeprazole 20 mg tablet,delayed release RxNorm: 934187 1 Tablet(s) PO daily 11/06/2016 12/05/2016 Inactive Phenergan with Codeine Syrup RxNorm: 5 Milliliter(s) PO QID as needed 10/30/2016 No Stop Date Active Tessalon Perles 100 mg capsule RxNorm: 707008 1-2 Capsule(s) PO TID as needed cough 10/30/2016 11/08/2016 Inactive Klor-Con M20 mEq tablet,extended release RxNorm: 1581891 TAKE 1 TABLET EVERY MORNING 10/26/2016 12/03/2017 Inactive ceftriaxone 500 mg solution for injection RxNorm: 4540930 1 Milliliter(s) Inj 09/27/2016 09/27/2016 Inactive Phenergan with Codeine Syrup RxNorm: 5 Milliliter(s) PO QID as needed 09/27/2016 10/29/2016 Inactive Tessalon Perles 100 mg capsule RxNorm: 876038 1-2 Capsule(s) PO TID as needed cough 09/27/2016 09/29/2016 Inactive Kenalog 40 mg/mL suspension for injection RxNorm: 9023983 1 Milliliter(s) Inj 09/27/2016 09/27/2016 Inactive Flagyl 500 mg tablet RxNorm: 656598 1 Tablet(s) PO TID 2016 08/05/2016 Inactive Lasix 40 mg tablet RxNorm: 111995 TAKE 1 TABLET DAILY 07/26/2016 04/23/2017 Inactive Zithromax 250 mg tablet RxNorm: 721116 [address] day and 1 tab po on day 2-5 Tablet(s) PO 03/28/2016 03/27/2016 Inactive zpack x 1 Zithromax 250 mg tablet RxNorm: 714934 [address] day and 1 tab po on day 2-5 Tablet(s) PO 03/28/2016 04/01/2016 Inactive zpack x 1 Flagyl 500 mg tablet RxNorm: 364580 1 Tablet(s) PO TID 02/07/2016 02/06/2016 Inactive Flagyl 500 mg tablet RxNorm: 715245 1 Tablet(s) PO TID 02/07/2016 02/16/2016 Inactive Zyrtec-D 5 mg-120 mg tablet,extended release RxNorm: 6422765 1 Tablet(s) PO daily as needed allergies 11/23/2015 No Stop Date Active Imodium A-D 2 mg tablet RxNorm: 154963 1/2 Tablet(s) PO daily 11/23/2015 No Stop Date Active Mucinex 600 mg tablet, extended release RxNorm: 826587 1 Tablet(s) PO BID as needed 11/23/2015 01/21/2016 Inactive Lasix 40 mg tablet RxNorm: 648227 TAKE 1 TABLET DAILY 11/01/2015 07/25/2016 Inactive Klor-Con M20 mEq tablet,extended release RxNorm: 1188485 TAKE 1 TABLET EVERY MORNING 11/01/2015 10/25/2016 Inactive Flonase Allergy Relief 50 mcg/actuation nasal spray,suspension RxNorm: 2 Bruneau NASAL daily 07/20/2015 No Stop Date Active Kenalog 40 mg/mL suspension for injection RxNorm: 7080826 Milliliter(s) Inj 02/02/2015 02/02/2015 Inactive Crestor 5 mg tablet RxNorm: 354788 1/2 Tablet(s) PO daily 10/05/2014 09/29/2015 Inactive metoprolol tartrate 100 mg tablet RxNorm: 303400 1 Tablet(s) PO BID 10/05/2014 12/28/2015 Inactive Plavix 75 mg tablet RxNorm: 897181 1 Tablet(s) PO daily 10/05/2014 03/07/2015 Inactive Klor-Con M20 mEq tablet,extended release RxNorm: 685896 1 Tablet(s) PO QAM 10/05/2014 10/31/2015 Inactive Lasix 40 mg tablet RxNorm: 425443 1 Tablet(s) PO daily 10/05/2014 10/31/2015 Inactive Efudex 5 % topical cream RxNorm: 929725 1 Application TOP BID x 2 weeks, allow healing x 1 -2 weeks, then reuse 10/05/2014 07/05/2015 Inactive Pradaxa 150 mg capsule RxNorm: 9774918 1 Capsule(s) PO BID 10/05/2014 04/09/2017 Inactive amlodipine 10 mg tablet RxNorm: 535728 1/2 Tablet(s) PO QAM 10/05/2014 07/05/2015 Inactive Efudex 5 % topical cream RxNorm: 135288 1 Application TOP BID x 2 weeks, allow healing x 1 -2 weeks, then reuse 09/22/2014 10/04/2014 Inactive Klor-Con M20 mEq tablet,extended release RxNorm: 402619 1 Tablet(s) PO QAM 09/22/2014 10/04/2014 Inactive Lasix 40 mg tablet RxNorm: 226140 1 Tablet(s) PO daily 09/22/2014 10/04/2014 Inactive Cartia XT 180 mg capsule,extended release RxNorm: 874243 2 Capsule(s) PO daily No Start Date Active cetirizine 10 mg tablet RxNorm: 4540175 1 Tablet(s) PO daily at lunch No Start Date Active Canasa 1,000 mg rectal suppository RxNorm: 594092 [address] seymour No Start Date Active Lialda 1.2 gram tablet,delayed release RxNorm: 781286 1 Tablet(s) PO QHS -Prescried by Dr. Seymour No Start Date Active Centrum Silver oral RxNorm: 47305 oral No Start Date Active Eliquis 5 mg tablet RxNorm: 6025216 1 Tablet(s) PO BID Dr Avila No Start Date Active aspirin 81 mg capsule,delayed release RxNorm: 214046 1 Capsule(s) PO daily No Start Date Active losartan 25 mg tablet RxNorm: 338539 1 Tablet(s) PO QPM at supper No Start Date Active digoxin 250 mcg tablet RxNorm: 686925 1 Tablet(s) PO daily No Start Date Active Vitamin D3 5,000 unit tablet RxNorm: 095713 1 Tablet(s) PO BID No Start Date Active Probiotic oral RxNorm: 6205 oral No Start Date Active Glucosamine Chondroit Complx Advan oral RxNorm: oral No Start Date Active Plavix 75 mg tablet RxNorm: 067444 1 Tablet(s) PO daily No Start Date 10/04/2014 Inactive Klor-Con M20 mEq tablet,extended release RxNorm: 536070 1 Tablet(s) PO QAM No Start Date 09/21/2014 Inactive Imodium oral RxNorm: oral No Start Date 11/22/2015 Inactive Lasix 40 mg tablet RxNorm: 246293 1 Tablet(s) PO daily No Start Date 09/21/2014 Inactive amlodipine 10 mg tablet RxNorm: 908834 1/2 Tablet(s) PO QAM No Start Date 10/04/2014 Inactive Crestor 5 mg tablet RxNorm: 305249 1/2 Tablet(s) PO daily No Start Date 10/04/2014 Inactive Flonase Allergy Relief 50 mcg/actuation nasal spray,suspension RxNorm: 1 Bruneau NASAL daily No Start Date 07/19/2015 Inactive metoprolol tartrate 100 mg tablet RxNorm: 926152 1 Tablet(s) PO BID No Start Date 10/04/2014 Inactive Probiotic 4X oral RxNorm: 2911476 oral No Start Date 07/06/2015 Inactive Pradaxa 150 mg capsule RxNorm: 2588848 1 Capsule(s) PO BID No Start Date 10/04/2014 Inactive Medication Administered Medication Codes Instructions Start Date Status ceftriaxone 500 mg solution for injection RxNorm: 0610776 02/28/2018 No longer Active Kenalog 40 mg/mL suspension for injection RxNorm: 9156946 Milliliter 02/26/2018 No longer Active Kenalog 40 mg/mL suspension for injection RxNorm: 6938268 Milliliter 06/29/2017 No longer Active ceftriaxone 500 mg solution for injection RxNorm: 7980030 02/06/2017 No longer Active Kenalog 40 mg/mL suspension for injection RxNorm: 2531068 1Milliliter 09/27/2016 No longer Active ceftriaxone 500 mg solution for injection RxNorm: 5796335 1Milliliter 09/27/2016 No longer Active Kenalog 40 mg/mL suspension for injection RxNorm: 9821794 Milliliter 02/02/2015 No longer Active Immunizations Vaccine [...] Acute laryngopharyngitis ICD-10: J06.0 ICD-9: 465.0 11/09/2017 Chronic atrial fibrillation ICD-10: I48.2 ICD-9: 427.31 10/22/2017 Essential (primary) hypertension ICD-10: I10 ICD-9: 401.9 10/22/2017 Encounter for general adult medical examination with [...] Visit Reason For Visit Effective Dates Notes sinus congestion 02/28/2018 sinus congestion 02/19/2018 sore [...] Observation Code Item Item Code Result Date Lipid Ord30 CHOL 108 mg/dL 10/23/2017 Lipid Ord30 HDL 39.0 mg/dl 10/23/2017 Lipid Ord30 TRIG 175 mg/dL 10/23/2017 Lipid Ord30 LDL 34 mg/dL 10/23/2017 Lipid Ord30 C/HDL 2.8 Ratio 10/23/2017 Comp Metabolic Tqf478 NA 140 mEq/L 10/23/2017 Comp Metabolic Cns841 K 4.1 mEq/L 10/23/2017 Comp Metabolic Xwp142 CL 102 mEq/L 10/23/2017 Comp Metabolic Kcu947 CO2 30.0 mEq/L 10/23/2017 Comp Metabolic Obx457 ANION GAP 12 10/23/2017 Comp Metabolic Joq228 GLUCOSE 124 mg/dL 10/23/2017 Comp Metabolic Ncx439 Creat 1.1 mg/dL 10/23/2017 Comp Metabolic Hwk725 eGFR 71 ml/min/1.73m2 10/23/2017 Comp Metabolic Czl778 BUN 11 mg/dL 10/23/2017 Comp Metabolic Ceo093 B/C Ratio 10.2 Ratio 10/23/2017 Comp Metabolic Nod527 CALCIUM 9.3 mg/dL 10/23/2017 Comp Metabolic Oqh509 ALK PHOS 72 U/L 10/23/2017 Comp Metabolic Epj270 AST(SGOT) 21 U/L 10/23/2017 Comp Metabolic Rou439 ALT(SGPT) 17 U/L 10/23/2017 Comp Metabolic Dxi342 BILI T 0.8 mg/dL 10/23/2017 Comp Metabolic Kds340 ALBUMIN 4.3 g/dL 10/23/2017 Comp Metabolic Dni076 TPRO 7.4 g/dL 10/23/2017 Comp Metabolic Qqq844 GLOB 3.1 g/dL 10/23/2017 Comp Metabolic Oac236 A/G Ratio 1.4 Ratio 10/23/2017 Comp Metabolic Mut794 Osmo 280 mOsmo 10/23/2017 Test(s) Not Perfromed [id number] Test(s) Not Performed Test(s) Not Performed. See Below: 10/23/2017 Test(s) Not Perfromed [id number] TEST NAME PSA 10/23/2017 Test(s) Not Perfromed [id number] Rejection Reason PSA Performed yearly at Dr. Stone[facility] 10/23/2017 Test(s) Not Perfromed [id number] COMMENT N/A 10/23/2017 Test(s) Not Perfromed [id number] Reel Hooker Gian Johnson 10/23/2017 Tsh Ord6 TSH (3rd IS) 3.37 uIU/mL 10/23/2017 Digoxin Ord9 DIGOXIN 1.0 NG/ML 10/23/2017 Cbc With Differential Ord2 WBC 10.09 K/ul 10/23/2017 Cbc With Differential Ord2 RBC 5.07 M/ul 10/23/2017 Cbc With Differential Ord2 HGB 15.9 g/dl 10/23/2017 Cbc With Differential Ord2 HCT 47.3 % 10/23/2017 Cbc With Differential Ord2 Neut% 58.0 % 10/23/2017 Cbc With Differential Ord2 MCV 93.3 fl 10/23/2017 Cbc With Differential Ord2 Lymph% 27.1 % 10/23/2017 Cbc With Differential Ord2 Custer% 8.5 % 10/23/2017 Cbc With Differential Ord2 MCH 31.4 pg 10/23/2017 Cbc With Differential Ord2 Eos% 6.1 % 10/23/2017 Cbc With Differential Ord2 MCHC 33.6 pg 10/23/2017 Cbc With Differential Ord2 PLT 212 K/ul 10/23/2017 Cbc With Differential Ord2 Baso% 0.3 % 10/23/2017 Cbc With Differential Ord2 RDW 15.5 % 10/23/2017 Cbc With Differential Ord2 Neut ABS# 5.85 K/ul 10/23/2017 Cbc With Differential Ord2 Lymph ABS# 2.73 K/ul 10/23/2017 Cbc With Differential Ord2 [place] ABS# 0.9 K/ul 10/23/2017 Cbc With Differential Ord2 Eos ABS# 0.6 K/ul 10/23/2017 Cbc With Differential Ord2 Baso ABS# 0.0 K/ul 10/23/2017 Lipid Ord30 CHOL 107 mg/dL 03/21/2016 Lipid Ord30 HDL 42.0 mg/dl 03/21/2016 Lipid Ord30 TRIG 178 mg/dL 03/21/2016 Lipid Ord30 LDL 29 mg/dL 03/21/2016 Lipid Ord30 C/HDL 2.5 Ratio 03/21/2016 Cbc With Differential Ord2 WBC 12.03 K/ul 03/21/2016 Cbc With Differential Ord2 RBC 4.67 M/ul 03/21/2016 Cbc With Differential Ord2 HGB 14.6 g/dl 03/21/2016 Cbc With Differential Ord2 HCT 43.4 % 03/21/2016 Cbc With Differential Ord2 Neut% 62.9 % 03/21/2016 Cbc With Differential Ord2 Lymph% 20.9 % 03/21/2016 Cbc With Differential Ord2 MCV 92.9 fl 03/21/2016 Cbc With Differential Ord2 [place]% 10.3 % 03/21/2016 Cbc With Differential Ord2 MCH 31.3 pg 03/21/2016 Cbc With Differential Ord2 Eos% 5.7 % 03/21/2016 Cbc With Differential Ord2 MCHC 33.6 pg 03/21/2016 Cbc With Differential Ord2 PLT 224 K/ul 03/21/2016 Cbc With Differential Ord2 Baso% 0.2 % 03/21/2016 Cbc With Differential Ord2 RDW 13.9 % 03/21/2016 Cbc With Differential Ord2 Neut ABS# 7.57 K/ul 03/21/2016 Cbc With Differential Ord2 Lymph ABS# 2.51 K/ul 03/21/2016 Cbc With Differential Ord2 [place] ABS# 1.2 K/ul 03/21/2016 Cbc With Differential Ord2 Eos ABS# 0.7 K/ul 03/21/2016 Cbc With Differential Ord2 Baso ABS# 0.0 K/ul 03/21/2016 Digoxin Ord9 DIGOXIN 0.5 NG/ML 03/21/2016 Tsh Ord6 hTSH II 3.16 uIU/mL 03/21/2016 Comp Metabolic Khz697 NA 137 mEq/L 03/21/2016 Comp Metabolic Bpa848 K 4.6 mEq/L 03/21/2016 Comp Metabolic Wyf373 CL 101 mEq/L 03/21/2016 Comp Metabolic Uzc945 CO2 31.0 mEq/L 03/21/2016 Comp Metabolic Ozk944 ANION GAP 10 03/21/2016 Comp Metabolic Zbs448 GLUCOSE 106 mg/dL 03/21/2016 Comp Metabolic Mhg929 Creat 1.1 mg/dL 03/21/2016 Comp Metabolic Otw379 eGFR 69 ml/min/1.73m2 03/21/2016 Comp Metabolic Fjd130 BUN 11 mg/dL 03/21/2016 Comp Metabolic Txj594 B/C Ratio 9.9 Ratio 03/21/2016 Comp Metabolic Tfj500 CALCIUM 9.5 mg/dL 03/21/2016 Comp Metabolic Mvu307 ALK PHOS 88 U/L 03/21/2016 Comp Metabolic Knb538 AST(SGOT) 21 U/L 03/21/2016 Comp Metabolic Qng343 ALT(SGPT) 15 U/L 03/21/2016 Comp Metabolic Nin952 BILI T 0.7 mg/dL 03/21/2016 Comp Metabolic Zwo861 ALBUMIN 4.2 g/dL 03/21/2016 Comp Metabolic Wfl170 TPRO 7.9 g/dL 03/21/2016 Comp Metabolic Rwv870 GLOB 3.7 g/dL 03/21/2016 Comp Metabolic Nxl622 A/G Ratio 1.1 Ratio 03/21/2016 Comp Metabolic Mlf743 Osmo 274 mOsmo 03/21/2016 Clostridium Diff Tox A/B Rix116 Cdiff Negative 02/01/2016 Culture Mrsa [id number] MRSA CULTURE SEE NOTES 04/09/2015 Digoxin Ord9 DIGOXIN 0.9 NG/ML 04/07/2015 Metabolic Ord15 NA 139 mEq/L 04/07/2015 [...] & Hct Ord65 HCT 41.7 % 04/07/2015 Hgb & Hct Ord65 HGB 12.4 [...] Ord9 DIGOXIN 1.0 NG/ML 03/11/2015 Comp Metabolic Htq489 NA 142 mEq/L 03/11/2015 Comp Metabolic Nea933 K 4.4 mEq/L 03/11/2015 Comp Metabolic Aym886 CL 107 mEq/L 03/11/2015 Comp Metabolic Ntz635 CO2 27.0 mEq/L 03/11/2015 Comp Metabolic Stb734 ANION GAP 12 03/11/2015 Comp Metabolic Kxp654 GLUCOSE 106 mg/dL 03/11/2015 Comp Metabolic Goh916 Creat 1.1 mg/dL 03/11/2015 Comp Metabolic Rym933 eGFR 68 ml/min/1.73m2 03/11/2015 Comp Metabolic Rgw527 BUN 16 mg/dL 03/11/2015 Comp Metabolic Dfx346 B/C Ratio 14.3 Ratio 03/11/2015 Comp Metabolic Hoj918 CALCIUM 9.5 mg/dL 03/11/2015 Comp Metabolic Dvt447 ALK PHOS 82 U/L 03/11/2015 Comp Metabolic Dye616 AST(SGOT) 20 U/L 03/11/2015 Comp Metabolic Ghh225 ALT(SGPT) 17 U/L 03/11/2015 Comp Metabolic Qfc100 BILI T 0.4 mg/dL 03/11/2015 Comp Metabolic Pbh507 ALBUMIN 4.0 g/dL 03/11/2015 Comp Metabolic Dfe828 TPRO 6.9 g/dL 03/11/2015 Comp Metabolic Veh841 GLOB 2.9 g/dL 03/11/2015 Comp Metabolic Bas548 A/G Ratio 1.4 Ratio 03/11/2015 Comp Metabolic Jpf322 Osmo 285 mOsmo 03/11/2015 Metabolic Ord15 NA [...] System Result Effective Dates Constitutional recent illness 02/28/2018 Constitutional No chills [...] inspection of skin Location: face 10/22/2017 right adventist, forehead, left adventist - irrirated actinic keratosis Full Exam - [...] inspection of skin Location: face 03/21/2016 right adventist, forehead, left adventist - irrirated actinic keratosis Full Exam - [...] inspection of skin Location: face 11/23/2015 right adventist, left adventist - irrirated actinic keratosis Full Exam - [...] inspection of skin Location: face 07/06/2015 right adventist, forehead, left adventist - irrirated actinic keratosis Full Exam - [...] Procedure Codes Date THER/PROPH/DIAG INJ SC/IM CPT-4: 32745 02/28/2018 ROCEPHIN, PER 250 MG CPT- 4: J0696 02/28/2018 THER/PROPH/DIAG INJ SC/IM CPT-4: 74663 02/26/2018 TRIAMCINOLONE ACET INJ NOS CPT-4: J3301 02/26/2018 PPPS, SUBSEQ VISIT CPT- 4: G0439 2017 TRIAMCINOLONE ACET INJ NOS CPT-4: J3301 06/29/2017 THER/PROPH/DIAG INJ SC/IM CPT-4: 59268 02/06/2017 ROCEPHIN, PER 250 MG CPT- 4: J0696 02/06/2017 ROCEPHIN, PER 250 MG CPT- 4: J0696 09/27/2016 TRIAMCINOLONE ACET INJ NOS CPT-4: J3301 09/27/2016 THER/PROPH/DIAG INJ SC/IM CPT-4: 31481 09/27/2016 DESTRUCT PREMALG LESION CPT-4: 63545 10/14/2015 DESTRUCT PREMALG LESION CPT-4: 74212 07/20/2015 DESTRUCT PREMALG LESION CPT-4: 56961 07/06/2015 DESTRUCT PREMALG LES 2-14 CPT-4: 45904 07/06/2015 TRIAMCINOLONE ACET INJ NOS CPT-4: J3301 02/02/2015 Vital Signs Date Vital 02/28/2018 Blood Pressure 1: 124/72 Code: 8480-6 BMI: 30.0 Code: 28221-0 Heart Rate 1: 69 bpm Height: 5'8" SpO2: 97% Temperature: 36.6 (C) / 97.8 (F) Weight: 197 lbs 02/19/2018 Blood Pressure 1: 128/76 Code: 8480-6 BMI: 30.0 Code: 71572-9 Heart Rate 1: 66 bpm Height: 5'8" SpO2: 97% Weight: 197 lbs 11/09/2017 Blood Pressure 1: 130/74 Code: 8480-6 BMI: 29.3 Code: 70079-3 Heart Rate 1: 81 bpm Height: 5'8" SpO2: 98% Temperature: 36.6 (C) / 97.9 (F) Weight: 193 lbs 10/22/2017 Blood Pressure 1: 132/82 Code: 8480-6 BMI: 29.0 Code: 61424-1 Heart Rate 1: 80 bpm Height: 5'8" SpO2: 98% Weight: 191 lbs 2017 Blood Pressure 1: 142/68 Code: 8480-6 BMI: 28.7 Code: 29074-7 Heart Rate 1: 62 bpm Height: 5'8" SpO2: 98% Waist Measure (cm): 102 cm Weight: 189 lbs 07/23/2017 Blood Pressure 1: 138/84 Code: 8480-6 BMI: 29.0 Code: 35108-9 Heart Rate 1: 69 bpm Height: 5'8" SpO2: 98% Weight: 191 lbs 07/09/2017 Blood Pressure 1: 120/82 Code: 8480-6 BMI: 29.2 Code: 26063-1 Heart Rate 1: 80 bpm Height: 5'8" SpO2: 98% Weight: 192 lbs 06/29/2017 Blood Pressure 1: 140/82 Code: 8480-6 BMI: 29.5 Code: 03708-1 Heart Rate 1: 83 bpm Height: 5'8" SpO2: 98% Weight: 194 lbs 04/23/2017 Blood Pressure 1: 132/74 Code: 8480-6 BMI: 28.4 Code: 81404-6 Heart Rate 1: 78 bpm Height: 5'8" SpO2: 97% Weight: 187 lbs 04/10/2017 Blood Pressure 1: 126/68 Code: 8480-6 BMI: 29.5 Code: 13145-0 Heart Rate 1: 68 bpm Height: 5'8" SpO2: 92% Temperature: 37.5 (C) / 99.5 (F) Weight: 194 lbs 03/29/2017 Blood Pressure 1: 116/76 Code: 8480-6 BMI: 29.6 Code: 31258-4 Heart Rate 1: 61 bpm Height: 5'8" SpO2: 98% Weight: 195 lbs 02/06/2017 Blood Pressure 1: 130/74 Code: 8480-6 BMI: 30.4 Code: 55406-5 Heart Rate 1: 71 bpm Height: 5'8" SpO2: 98% Weight: 200 lbs 11/06/2016 Blood Pressure 1: 140/74 Code: 8480-6 BMI: 29.5 Code: 98874-4 Heart Rate 1: 76 bpm Height: 5'8" SpO2: 96% Weight: 194 lbs 09/27/2016 Blood Pressure 1: 138/78 Code: 8480-6 BMI: 29.6 Code: 54177-2 Heart Rate 1: 68 bpm Height: 5'8" SpO2: 97% Weight: 195 lbs 03/21/2016 Blood Pressure 1: 148/82 Code: 8480-6 BMI: 30.6 Code: 61284-9 Heart Rate 1: 67 bpm Height: 5'8" SpO2: 98% Weight: 201 lbs 02/01/2016 Blood Pressure 1: 128/86 Code: 8480-6 BMI: 30.3 Code: 73136-0 Heart Rate 1: 84 bpm Height: 5'8" SpO2: 96% Weight: 199 lbs 11/23/2015 Blood Pressure 1: 132/76 Code: 8480-6 BMI: 30.4 Code: 99908-5 Heart Rate 1: 81 bpm Height: 5'8" SpO2: 98% Weight: 200 lbs 10/14/2015 Blood Pressure 1: 120/80 Code: 8480-6 BMI: 30.4 Code: 51201-2 Heart Rate 1: 87 bpm Height: 5'8" SpO2: 97% Weight: 200 lbs 07/20/2015 Blood Pressure 1: 132/84 Code: 8480-6 BMI: 31.0 Code: 22072-5 Heart Rate 1: 78 bpm Height: 5'8" SpO2: 96% Weight: 204 lbs 07/06/2015 Blood Pressure 1: 130/78 Code: 8480-6 BMI: 31.0 Code: 40320-9 Heart Rate 1: 80 bpm Height: 5'8" SpO2: 98% Weight: 204 lbs 03/29/2015 Blood Pressure 1: 132/82 Code: 8480-6 BMI: 29.6 Code: 02032-1 Heart Rate 1: 76 bpm Height: 5'8" SpO2: 96% Weight: 195 lbs 03/08/2015 Blood Pressure 1: 126/84 Code: 8480-6 BMI: 30.2 Code: 27048-1 Heart Rate 1: 101 bpm Height: 5'8" SpO2: 98% Weight: 198 lbs 8 oz 02/02/2015 Blood Pressure 1: 132/86 Code: 8480-6 Heart Rate 1: 86 bpm SpO2: 98% Temperature: 36.6 (C) / 97.8 (F) Weight: 198 lbs 09/22/2014 Blood Pressure 1: 128/80 Code: 8480-6 BMI: 29.3 Code: 91556-5 Heart Rate 1: 85 bpm Height: 5'8" SpO2: 98% Weight: 193 lbs Functional Status No Functional Status data History of Present Illness Symptom Name Status Result Effective Date Notes sinus congestion Location frontal sinuses 02/28/2018 None [...] data Encounters Encounter Performer Location Codes Date 19035 EST. PATIENT, LEVEL IV Diagnosis: Other acute sinusitis[ICD10: J01.80] Diagnosis: Other allergic rhinitis[ICD10: J30.89] Sandra Parsons MD, [facility] CPT- 4: 28313 02/28/2018 71021 EST. PATIENT, LEVEL IV Diagnosis: Other acute sinusitis[ICD10: J01.80] Diagnosis: Other allergic rhinitis[ICD10: J30.89] Sandra Parsons MD, [facility] CPT- 4: 52926 02/19/2018 78746 EST. PATIENT, LEVEL III Diagnosis: Acute laryngopharyngitis[ICD10: J06.0] Diagnosis: Other allergic rhinitis[ICD10: J30.89] Sandra Parsons MD, [facility] CPT- 4: 68240 11/09/2017 ([id number]) 36623 EST. PATIENT, LEVEL IV Diagnosis: Essential (primary) hypertension[ICD10: I10] Diagnosis: Chronic atrial fibrillation[ICD10: I48.2] Steffany Parsons MD [facility] CPT-4: 20248 10/22/2017 ([id number]) 38457 EST. PATIENT, LEVEL IV Diagnosis: Essential (primary) hypertension[ICD10: I10] Diagnosis: Chronic atrial fibrillation[ICD10: I48.2] Diagnosis: Cough[ICD10: R05] Steffany Parsons MD [facility] CPT-4: 26335 07/23/2017 ([id number]) 65120 EST. PATIENT, LEVEL III Diagnosis: Cough[ICD10: R05] Diagnosis: Other allergic rhinitis[ICD10: J30.89] Diagnosis: Chronic obstructive pulmonary disease with (acute) exacerbation[ICD10: J44.1] Lucrecia Parsons MD, [facility] CPT-4: 38860 07/09/2017 ([id number]) 11697 EST. PATIENT, LEVEL III Diagnosis: Cough[ICD10: R05] Diagnosis: Other allergic rhinitis[ICD10: J30.89] Diagnosis: Chronic obstructive pulmonary disease with (acute) exacerbation[ICD10: J44.1] Lucrecia Parsons MD, [facility] CPT-4: 79438 06/29/2017 ([id number]) 65662 EST. PATIENT, LEVEL III Diagnosis: Essential (primary) hypertension[ICD10: I10] Diagnosis: Cough[ICD10: R05] Steffany Parsons MD, [facility] CPT-4: 26704 04/23/2017 ([id number]) [id number] EST. PATIENT, LEVEL IV Diagnosis: Hemoptysis[ICD10: R04.2] Diagnosis: Essential (primary) hypertension[ICD10: I10] Diagnosis: Chronic obstructive pulmonary disease with acute lower respiratory infection[ICD10: J44.0] Steffany Parsons MD, [facility] CPT-4: 06438 04/10/2017 [id number] EST. PATIENT, LEVEL III Diagnosis: Acute laryngopharyngitis[ICD10: J06.0] Diagnosis: Other allergic rhinitis[ICD10: J30.89] Sandra Parsons MD, [facility] CPT- 4: 37136 03/29/2017 ([id number]) [id number] EST. PATIENT, LEVEL III Diagnosis: Pneumonia due to Mycoplasma pneumoniae[ICD10: J15.7] Diagnosis: Cough[ICD10: R05] Diagnosis: Other chest pain[ICD10: R07.89] Steffany Parsons MD, [facility] CPT-4: 11431 02/06/2017 [id number] EST. PATIENT, LEVEL IV Diagnosis: Cough[ICD10: R05] Diagnosis: Shortness of breath[ICD10: R06.02] Diagnosis: Gastro-esophageal reflux disease without esophagitis[ICD10: K21.9] Sandra Parsons MD, [facility] CPT-4: 76586 11/06/2016 85829 EST. PATIENT, LEVEL IV Diagnosis: Other allergic rhinitis[ICD10: J30.89] Diagnosis: Acute bronchitis due to other specified organisms[ICD10: J20.8] Sandra Parsons MD, [facility] CPT-4: 01458 09/27/2016 ([id number]) 14290 EST. PATIENT, LEVEL IV Diagnosis: Essential (primary) hypertension[ICD10: I10] Diagnosis: Chronic atrial fibrillation[ICD10: I48.2] Diagnosis: Encounter for therapeutic drug level monitoring[ICD10: Z51.81] Steffany Parsons MD, [facility] CPT-4: 67568 03/21/2016 ([id number]) 69809 EST. 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 PATIENT, LEVEL III Diagnosis: Allergic rhinitis due to pollen[ICD10: J30.1] Diagnosis: Actinic keratosis[ICD10: L57.0] Lucrecia Parsons MD, [facility] CPT-4: 04408 10/14/2015 ([id number]) 11917 EST. PATIENT, LEVEL IV Diagnosis: Essential (primary) hypertension[ICD10: I10] Diagnosis: Chronic atrial fibrillation[ICD10: I48.2] Steffany Parsons MD, [facility] CPT-4: 53444 07/06/2015 27439 EST. PATIENT, LEVEL III Diagnosis: Essential (primary) hypertension[ICD10: I10] Diagnosis: Chronic atrial fibrillation[ICD10: I48.2] Diagnosis: Shortness of breath[ICD10: R06.02] Diagnosis: Melena[ICD10: K92.1] Sandra Parsons MD, [facility] CPT-4: 03293 03/29/2015 ([id number]) 06511 EST. PATIENT, LEVEL IV Diagnosis: Essential (primary) hypertension[ICD10: I10] Diagnosis: Chronic atrial fibrillation[ICD10: I48.2] Diagnosis: Cough[ICD10: R05] Steffany Parsons MD, [facility] CPT-4: 35176 03/08/2015 ([id number]) 81470 EST. PATIENT, LEVEL III Diagnosis: Other seasonal allergic rhinitis[ICD10: J30.2] Diagnosis: Other lesions of oral mucosa[ICD10: K13.79] Lucrecia Parsons MD, [facility] CPT-4: 34530 02/02/2015 ([id number]) OFFICE VISIT, NEW - LEVEL 4 Diagnosis: ESSENTIAL HYPERTENSION[ICD9: 401.9] Diagnosis: HYPERLIPIDEMIA[ICD9: 272.4] Diagnosis: ACTINIC KERATOSIS[ICD9: 702.0] Steffany Parsons MD, [facility] CPT-4: 67608 09/22/2014 Plan of Care Planned Activity Notes [...] allergy spray. 02/28/2018 Appointment: Sandra Tim WPtel: [address] [place] [address] (15 min) Moderate 02/28/2018 Patient Education: Patient [...] allergy spray. 02/19/2018 Appointment: Sandra Tim WPtel: [facility]5 [facility] (15 min) Moderate 02/19/2018 [...] 11/09/2017 Appointment: Sandra Tim WPtel: [phone] [facility] (15 min) Moderate 11/09/2017 Patient Education: Patient [...] becoming uncontrolled. 10/22/2017 App[facility]ment[phone] ([facility] min) Moderate 10/22/2017 Patient Education: Patient [...] spray) 07/23/2017 Appointment: [phone] (15 min) Moderate 07/23/2017 Patient Education: Patient [...] changes. 07/09/2017 Appointment: Lucrecia Yeager WPtel: [phone] [phone] (30 min) Complex 07/09/2017 Patient Education: Patient [...] 06/29/2017 Appointment: Lucrecia Yeager WPtel: [phone] [phone] (15 min) Moderate 06/29/2017 Patient Education: Patient Medication Summary Completed 06/29/2017 Appointment: Steffany Parsons WPtel: [facility]7 [facility] (15 min) Moderate 04/30/2017 Visit [...] breathing treatments. 04/23/2017 Appointment: Steffany Parsons WPtel: [facility]4 [facility] (15 min) Moderate 04/23/2017 Patient Education: Patient Medication Summary Completed 04/23/2017 Visit Plan: Hemoptysis and COPD exacerbation - continue with antibiotics, rx for antifungal tablet and suspension. chest xray ordered, monitor symptoms. Pt to stop aspirin x 1 week, continue with eliquis. call if s ymptoms are not improving. rx for phenergan with codeine. 04/10/2017 Appointment: Steffany Parsons WPtel: [facility]6 [facility] (15 min) Moderate 04/10/2017 [...] allergy spray. 03/29/2017 Appointment: Sandra Tim WPtel: [facility] (15 min) Moderate 03/29/2017 Patient Education: Patient Medication Summary Completed 03/29/2017 Visit Plan: Pneumonia - Pt has been diagnosed with pneumonia by physical exam. A chest xray has been ordered as have antibiotics. The pt is aware of the diagnosis and the need for acute treatment of this illness. Cough - rx for promethazine/codeine syrup for cough. 02/06/2017 Appointment: Steffany Parsons WPtel: [phone] [facility] (15 min) Moderate 02/06/2017 Patient Education: Patient [...] not improving. 11/06/2016 Appointment: Sandra Tim WPtel: [phone] [facility] (15 min) Moderate 11/06/2016 Patient Education: Patient [...] worsen. 09/27/2016 Appointment: Sandra Tim WPtel: [phone] [facility] (30 min) Complex 09/27/2016 Patient Education: Patient [...] uncontrolled. 03/21/2016 Appointment: [phone] (15 min) Moderate 03/21/2016 Patient Education: Patient Medication Summary Completed 03/21/2016 Patient Education: Obesity Completed 03/21/2016 Visit Plan: Diarrhea-recent abx use-check stool for cdiff-increase probiotic to twice daily-bland diet advance as tolerated-call if symptoms do not resolve or if any worse. Patient verbalized understanding of plan. 02/01/2016 Appointment: Lucrecia Yeager WPtel: [phone] (15 min) Moderate 02/01/2016 Patient Education: Patient Medication Summary Completed 02/01/2016 Patient Education: Obesity Completed 02/01/2016 [facility] Info faxed Completed 11/27/2015 Visit Plan: Hypertension [...] Summary Completed 11/23/2015 Appointment: Steffany Parsons WPtel: [facility]0 [facility]66[facility] (15 min) Moderate 11/15/2015 Visit Plan: Allergies [...] not heal 10/14/2015 Appointment: Lucrecia Yeager WPtel: [facility]3 [phone] (15 min) Moderate 10/14/2015 Patient Education: Patient [...] acute concerns. 07/20/2015 Appointment: Lucrecia Yeager WPtel: [facility]0 [phone] (30 min) Complex 07/20/2015 Patient Education: Patient [...] or any other acute concerns. 07/06/2015 Appointment: Jaqueline Steffany WPtel: [facility] (15 min) Moderate 07/06/2015 Patient Education: [...] - pt has an upcoming appointment with account development specialist to possibly have an ablation done. [...] Education: Hypertension Completed 03/08/2015 [facility] Referral Completed 02/13/2015 Visit Plan: Allergies [...] 02/02/2015 Care Plan: Referral Order SNOMED-CT : [id number] Ordered 02/02/2015 Visit Plan: Hypertension - well [...] improving. 09/22/2014 Appointment: Steffany Parsons WPtel: [address] [place] [address] [place] New Patient 09/22/2014 Patient Education: Patient Medication Summary Completed 09/22/2014 Patient Education: Hypertension Completed 09/22/2014 Referral: Alexi Honeycutt [facility] Referral Initiated Instructions Comment . Medicare Exam - today we discussed [...] her DOPA paperwork for health care surrogate. FLONASE NASAL SPRAY KENALOG INJECTION TODAY SHORT [...] patient is stable, monitor for acute changes. Mucinex - take twice daily with 16 [...] their heart rate is becoming uncontrolled. . Allergies - chronic - recommended pt [...] if left ear lesion does not heal Kenalog injection today in the office-if your [...] - rx for promethazine/codeine syrup for cough. CHECK STOOL FOR CDIFF INCREASE PROBIOTIC TO TWICE DAILY . Diarrhea-recent abx use-check stool for cdiff-increase probiotic to twice daily- bland diet advance as tolerated-call if symptoms do not resolve or if any worse. Patient verbalized understanding of plan. . URI - Pt advised to increase [...] - pt has an upcoming appointment with account development specialist to possibly have an ablation done. Bloody stool - pt states that he had bright red blood in his stool, states he thinks it is from straining to go - will check H&H . COPD EXACERBATION - COPD is a [...] improving. rx for phenergan with codeine. . Sinusitis - Pt has acute infection [...] if the symptoms are not improving. . Hypertension - well controlled - continue with current medications, continue with no added salt diet. Pt has been encouraged to exercise daily. The pt has been advised to call the office if there are any acute concerns about change in blood pressure readings at home. Cough, shortness of breath - resolved finish breathing treatments.
--- OUTSIDE RECORDS SUMMARY | 2018-08-31 19:17 | XMS REPORT | CCD ---
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 Name Role Phone PP Unavailable CCM Unavailable Summary Purpose Interface Exchange Insurance Providers Payer name Policy type / Coverage type Covered alliance party ID Effective Begin Date Effective End Date [facility] Commercial Insurance [id number] Unknown Unknown Family history Father Diagnosis Age At Onset Prostate Cancer Unknown Runs in the family Diagnosis Age At Onset Hypertension Unknown Mother Diagnosis Age At Onset No Family Disease Entered N/A Social History Social History Element Codes Description Effective Dates Marital status Unknown Mary 02/06/2017 Number of children Unknown 5 09/22/[address]: 7693821 Quit over 10 years ago 09/22/[address]: 891388928 Never drinks alcohol 09/22/2014 Allergies, Adverse Reactions, [...] Start Date Stop Date Status Fill Instructions prednisone 20 mg tablet RxNorm: 039038 2 Tablet(s) PO daily 02/28/2018 03/04/2018 Active START TOMORROW Keflex 500 mg capsule RxNorm: 307307 1 Capsule(s) PO TID 02/28/2018 03/09/2018 Active ceftriaxone 500 mg solution for injection RxNorm: 1733878 Inj 02/28/2018 02/28/2018 Inactive Kenalog 40 mg/mL suspension for injection RxNorm: 8288710 Milliliter(s) Inj 02/26/2018 02/26/2018 Inactive Keflex 500 mg capsule RxNorm: 584614 1 Capsule(s) PO TID 02/19/2018 02/25/2018 Inactive Klor-Con M20 mEq tablet,extended release RxNorm: 8182110 TAKE 1 TABLET EVERY MORNING 12/04/2017 No Stop Date Active prednisone 20 mg tablet RxNorm: 320261 2 Tablet(s) PO daily 11/16/2017 11/20/2017 Inactive START TOMORROW Zithromax Z-Mau 250 mg tablet RxNorm: 213649 1 Tablet(s) PO daily 11/16/2017 11/20/2017 Inactive Zithromax Z-Mau 250 mg tablet RxNorm: 237825 1 Tablet(s) PO daily 11/16/2017 11/15/2017 Inactive Keflex 500 mg capsule RxNorm: 663270 1 Capsule(s) PO TID 11/09/2017 11/15/2017 Inactive Zithromax 250 mg tablet RxNorm: 216254 [address] day and 1 tab po on day 2-5 Tablet(s) PO 08/30/2017 09/03/2017 Inactive zpack x 1 doxycycline hyclate 100 mg tablet RxNorm: 789872 1 Tablet(s) PO BID 07/09/2017 07/15/2017 Inactive prednisone 20 mg tablet RxNorm: 661267 2 Tablet(s) PO daily 06/29/2017 07/01/2017 Inactive START TOMORROW Kenalog 40 mg/mL suspension for injection RxNorm: 0077448 Milliliter(s) Inj 06/29/2017 06/29/2017 Inactive Lasix 40 mg tablet RxNorm: 116780 TAKE 1 TABLET DAILY 04/24/2017 No Stop Date Active Diflucan 150 mg tablet RxNorm: 288807 1 Tablet(s) PO daily 04/10/2017 04/16/2017 Inactive Bactrim DS 800 mg-160 mg tablet RxNorm: 245859 1 Tablet(s) PO BID 04/10/2017 04/16/2017 Inactive nystatin 100,000 unit/mL oral suspension RxNorm: 831551 5 Milliliter(s) PO QID 04/10/2017 04/19/2017 Inactive cefdinir 300 mg capsule RxNorm: 371174 1 Capsule(s) PO BID 03/28/2017 04/06/2017 Inactive cefdinir 300 mg capsule RxNorm: 680011 1 Capsule(s) PO BID 02/06/2017 02/15/2017 Inactive ceftriaxone 500 mg solution for injection RxNorm: 8163601 Inj 02/06/2017 02/06/2017 Inactive omeprazole 20 mg tablet,delayed release RxNorm: 376902 1 Tablet(s) PO daily 11/06/2016 12/05/2016 Inactive Phenergan with Codeine Syrup RxNorm: 5 Milliliter(s) PO QID as needed 10/30/2016 No Stop Date Active Tessalon Perles 100 mg capsule RxNorm: 550786 1-2 Capsule(s) PO TID as needed cough 10/30/2016 11/08/2016 Inactive Klor-Con M20 mEq tablet,extended release RxNorm: 4692616 TAKE 1 TABLET EVERY MORNING 10/26/2016 12/03/2017 Inactive ceftriaxone 500 mg solution for injection RxNorm: 9713625 1 Milliliter(s) Inj 09/27/2016 09/27/2016 Inactive Phenergan with Codeine Syrup RxNorm: 5 Milliliter(s) PO QID as needed 09/27/2016 10/29/2016 Inactive Tessalon Perles 100 mg capsule RxNorm: 221273 1-2 Capsule(s) PO TID as needed cough 09/27/2016 09/29/2016 Inactive Kenalog 40 mg/mL suspension for injection RxNorm: 3555194 1 Milliliter(s) Inj 09/27/2016 09/27/2016 Inactive Flagyl 500 mg tablet RxNorm: 849553 1 Tablet(s) PO TID 2016 08/05/2016 Inactive Lasix 40 mg tablet RxNorm: 436337 TAKE 1 TABLET DAILY 07/26/2016 04/23/2017 Inactive Zithromax 250 mg tablet RxNorm: 894863 [address] day and 1 tab po on day 2-5 Tablet(s) PO 03/28/2016 03/27/2016 Inactive zpack x 1 Zithromax 250 mg tablet RxNorm: 556803 [address] day and 1 tab po on day 2-5 Tablet(s) PO 03/28/2016 04/01/2016 Inactive zpack x 1 Flagyl 500 mg tablet RxNorm: 028539 1 Tablet(s) PO TID 02/07/2016 02/06/2016 Inactive Flagyl 500 mg tablet RxNorm: 341235 1 Tablet(s) PO TID 02/07/2016 02/16/2016 Inactive Zyrtec-D 5 mg-120 mg tablet,extended release RxNorm: 1416679 1 Tablet(s) PO daily as needed allergies 11/23/2015 No Stop Date Active Imodium A-D 2 mg tablet RxNorm: 561880 1/2 Tablet(s) PO daily 11/23/2015 No Stop Date Active Mucinex 600 mg tablet, extended release RxNorm: 847419 1 Tablet(s) PO BID as needed 11/23/2015 01/21/2016 Inactive Lasix 40 mg tablet RxNorm: 532571 TAKE 1 TABLET DAILY 11/01/2015 07/25/2016 Inactive Klor-Con M20 mEq tablet,extended release RxNorm: 1972310 TAKE 1 TABLET EVERY MORNING 11/01/2015 10/25/2016 Inactive Flonase Allergy Relief 50 mcg/actuation nasal spray,suspension RxNorm: 2 [place] NASAL daily 07/20/2015 No Stop Date Active Kenalog 40 mg/mL suspension for injection RxNorm: 6355115 Milliliter(s) Inj 02/02/2015 02/02/2015 Inactive Crestor 5 mg tablet RxNorm: 063223 1/2 Tablet(s) PO daily 10/05/2014 09/29/2015 Inactive metoprolol tartrate 100 mg tablet RxNorm: 856063 1 Tablet(s) PO BID 10/05/2014 12/28/2015 Inactive Plavix 75 mg tablet RxNorm: 979039 1 Tablet(s) PO daily 10/05/2014 03/07/2015 Inactive Klor-Con M20 mEq tablet,extended release RxNorm: 905969 1 Tablet(s) PO QAM 10/05/2014 10/31/2015 Inactive Lasix 40 mg tablet RxNorm: 871911 1 Tablet(s) PO daily 10/05/2014 10/31/2015 Inactive Efudex 5 % topical cream RxNorm: 606461 1 Application TOP BID x 2 weeks, allow healing x 1 -2 weeks, then reuse 10/05/2014 07/05/2015 Inactive Pradaxa 150 mg capsule RxNorm: 0408755 1 Capsule(s) PO BID 10/05/2014 04/09/2017 Inactive amlodipine 10 mg tablet RxNorm: 108512 1/2 Tablet(s) PO QAM 10/05/2014 07/05/2015 Inactive Efudex 5 % topical cream RxNorm: 928220 1 Application TOP BID x 2 weeks, allow healing x 1 -2 weeks, then reuse 09/22/2014 10/04/2014 Inactive Klor-Con M20 mEq tablet,extended release RxNorm: 565617 1 Tablet(s) PO QAM 09/22/2014 10/04/2014 Inactive Lasix 40 mg tablet RxNorm: 952927 1 Tablet(s) PO daily 09/22/2014 10/04/2014 Inactive Cartia XT 180 mg capsule,extended release RxNorm: 140452 2 Capsule(s) PO daily No Start Date Active cetirizine 10 mg tablet RxNorm: 1539794 1 Tablet(s) PO daily at lunch No Start Date Active Canasa 1,000 mg rectal suppository RxNorm: 092977 [address] seymour No Start Date Active Lialda 1.2 gram tablet,delayed release RxNorm: 073038 1 Tablet(s) PO QHS -Prescried by Dr. Seymour No Start Date Active Centrum Silver oral RxNorm: 37533 oral No Start Date Active Eliquis 5 mg tablet RxNorm: 8788489 1 Tablet(s) PO BID Dr Avila No Start Date Active aspirin 81 mg capsule,delayed release RxNorm: 699843 1 Capsule(s) PO daily No Start Date Active losartan 25 mg tablet RxNorm: 558759 1 Tablet(s) PO QPM at supper No Start Date Active digoxin 250 mcg tablet RxNorm: 971683 1 Tablet(s) PO daily No Start Date Active Vitamin D3 5,000 unit tablet RxNorm: 448857 1 Tablet(s) PO BID No Start Date Active Probiotic oral RxNorm: 6205 oral No Start Date Active Glucosamine Chondroit Complx Advan oral RxNorm: oral No Start Date Active Plavix 75 mg tablet RxNorm: 272991 1 Tablet(s) PO daily No Start Date 10/04/2014 Inactive Klor-Con M20 mEq tablet,extended release RxNorm: 317487 1 Tablet(s) PO QAM No Start Date 09/21/2014 Inactive Imodium oral RxNorm: oral No Start Date 11/22/2015 Inactive Lasix 40 mg tablet RxNorm: 795409 1 Tablet(s) PO daily No Start Date 09/21/2014 Inactive amlodipine 10 mg tablet RxNorm: 643672 1/2 Tablet(s) PO QAM No Start Date 10/04/2014 Inactive Crestor 5 mg tablet RxNorm: 222913 1/2 Tablet(s) PO daily No Start Date 10/04/2014 Inactive Flonase Allergy Relief 50 mcg/actuation nasal spray,suspension RxNorm: 1 [place] NASAL daily No Start Date 07/19/2015 Inactive metoprolol tartrate 100 mg tablet RxNorm: 070128 1 Tablet(s) PO BID No Start Date 10/04/2014 Inactive Probiotic 4X oral RxNorm: 1821493 oral No Start Date 07/06/2015 Inactive Pradaxa 150 mg capsule RxNorm: 5345318 1 Capsule(s) PO BID No Start Date 10/04/2014 Inactive Medication Administered Medication Codes Instructions Start Date Status ceftriaxone 500 mg solution for injection RxNorm: 8868219 02/28/2018 Active Kenalog 40 mg/mL suspension for injection RxNorm: 9008627 Milliliter 02/26/2018 No longer Active Kenalog 40 mg/mL suspension for injection RxNorm: 0665606 Milliliter 06/29/2017 No longer Active ceftriaxone 500 mg solution for injection RxNorm: 4578828 02/06/2017 No longer Active Kenalog 40 mg/mL suspension for injection RxNorm: 2602713 1Milliliter 09/27/2016 No longer Active ceftriaxone 500 mg solution for injection RxNorm: 5958953 1Milliliter 09/27/2016 No longer Active Kenalog 40 mg/mL suspension for injection RxNorm: 1443244 Milliliter 02/02/2015 No longer Active Immunizations Vaccine [...] 15.9 g/dl 10/23/2017 Cbc With Differential Ord2 Neut% 58.0 % 10/23/2017 Cbc With Differential Ord2 HCT 47.3 % 10/23/2017 Cbc With Differential Ord2 MCV 93.3 fl 10/23/2017 Cbc With Differential Ord2 Lymph% 27.1 % 10/23/2017 Cbc With Differential Ord2 MCH 31.4 pg 10/23/2017 Cbc With Differential Ord2 [place]% 8.5 % 10/23/2017 Cbc With Differential Ord2 [...] 2.73 K/ul 10/23/2017 Cbc With Differential Ord2 [place] ABS# 0.9 K/ul 10/23/2017 Cbc With Differential Ord2 Eos ABS# 0.6 K/ul 10/23/2017 Cbc With Differential Ord2 Baso ABS# 0.0 K/ul 10/23/2017 Digoxin Ord9 DIGOXIN 1.0 NG/ML 10/23/2017 Lipid Ord30 CHOL 108 mg/dL 10/23/2017 Lipid Ord30 HDL 39.0 mg/dl 10/23/2017 Lipid Ord30 TRIG 175 mg/dL 10/23/2017 Lipid Ord30 LDL 34 mg/dL 10/23/2017 Lipid Ord30 C/HDL 2.8 Ratio 10/23/2017 Comp Metabolic Gso404 NA 140 mEq/L 10/23/2017 Comp Metabolic Tfr586 K 4.1 mEq/L 10/23/2017 Comp Metabolic Ebx985 CL 102 mEq/L 10/23/2017 Comp Metabolic Sxb911 CO2 30.0 mEq/L 10/23/2017 Comp Metabolic Anl796 ANION GAP 12 10/23/2017 Comp Metabolic Ted630 GLUCOSE 124 mg/dL 10/23/2017 Comp Metabolic Uqi438 Creat 1.1 mg/dL 10/23/2017 Comp Metabolic Kwl404 eGFR 71 ml/min/1.73m2 10/23/2017 Comp Metabolic Saj630 BUN 11 mg/dL 10/23/2017 Comp Metabolic Ppj727 B/C Ratio 10.2 Ratio 10/23/2017 Comp Metabolic Ojj473 CALCIUM 9.3 mg/dL 10/23/2017 Comp Metabolic Mxh004 ALK PHOS 72 U/L 10/23/2017 Comp Metabolic Fgm953 AST(SGOT) 21 U/L 10/23/2017 Comp Metabolic Tcm004 ALT(SGPT) 17 U/L 10/23/2017 Comp Metabolic Iks700 BILI T 0.8 mg/dL 10/23/2017 Comp Metabolic Nni092 ALBUMIN 4.3 g/dL 10/23/2017 Comp Metabolic Iot237 TPRO 7.4 g/dL 10/23/2017 Comp Metabolic Itd527 GLOB 3.1 g/dL 10/23/2017 Comp Metabolic Cws737 A/G Ratio 1.4 Ratio 10/23/2017 Comp Metabolic Mwx115 Osmo 280 mOsmo 10/23/2017 Tsh Ord6 TSH (3rd IS) 3.37 uIU/mL 10/23/2017 Test(s) Not Perfromed [id number] Test(s) Not Performed Test(s) Not Performed. See Below: 10/23/2017 Test(s) Not Perfromed [id number] TEST NAME PSA 10/23/2017 Test(s) Not Perfromed [id number] Rejection Reason PSA Performed yearly at Dr. Stone's Office 10/23/2017 Test(s) Not Perfromed [id number] COMMENT N/A 10/23/2017 Test(s) Not Perfromed [id number] Recordist Gian Johnson 10/23/2017 Comp Metabolic Odj346 NA 137 mEq/L 03/21/2016 Comp Metabolic Uls959 K 4.6 mEq/L 03/21/2016 Comp Metabolic Zfs435 CL 101 mEq/L 03/21/2016 Comp Metabolic Xja723 CO2 31.0 mEq/L 03/21/2016 Comp Metabolic Jwm126 ANION GAP 10 03/21/2016 Comp Metabolic Ose801 GLUCOSE 106 mg/dL 03/21/2016 Comp Metabolic Jyb879 Creat 1.1 mg/dL 03/21/2016 Comp Metabolic Ryb505 eGFR 69 ml/min/1.73m2 03/21/2016 Comp Metabolic Iqa724 BUN 11 mg/dL 03/21/2016 Comp Metabolic Xdh341 B/C Ratio 9.9 Ratio 03/21/2016 Comp Metabolic Wbw086 CALCIUM 9.5 mg/dL 03/21/2016 Comp Metabolic Llr508 ALK PHOS 88 U/L 03/21/2016 Comp Metabolic Uhu779 AST(SGOT) 21 U/L 03/21/2016 Comp Metabolic Gtc027 ALT(SGPT) 15 U/L 03/21/2016 Comp Metabolic Zbi566 BILI T 0.7 mg/dL 03/21/2016 Comp Metabolic Glq802 ALBUMIN 4.2 g/dL 03/21/2016 Comp Metabolic Hei962 TPRO 7.9 g/dL 03/21/2016 Comp Metabolic Ada637 GLOB 3.7 g/dL 03/21/2016 Comp Metabolic Dxm431 A/G Ratio 1.1 Ratio 03/21/2016 Comp Metabolic Pui242 Osmo 274 mOsmo 03/21/2016 Lipid Ord30 CHOL [...] 31.3 pg 03/21/2016 Cbc With Differential Ord2 [place]% 10.3 % 03/21/2016 Cbc With Differential Ord2 MCHC 33.6 pg 03/21/2016 Cbc With Differential Ord2 Eos% 5.7 % 03/21/2016 Cbc With Differential Ord2 Baso% 0.2 % 03/21/2016 Cbc With Differential Ord2 PLT 224 K/ul 03/21/2016 Cbc With Differential Ord2 RDW 13.9 % 03/21/2016 Cbc With Differential Ord2 Neut ABS# 7.57 K/ul 03/21/2016 Cbc With Differential Ord2 Lymph ABS# 2.51 K/ul 03/21/2016 Cbc With Differential Ord2 [place] ABS# 1.2 K/ul 03/21/2016 Cbc With Differential Ord2 Eos ABS# 0.7 K/ul 03/21/2016 Cbc With Differential Ord2 Baso ABS# 0.0 K/ul 03/21/2016 Clostridium Diff Tox A/B Puj233 Cdiff Negative 02/01/2016 Culture Mrsa [id number] MRSA CULTURE SEE NOTES 04/09/2015 Digoxin Ord9 [...] & Hct Ord65 HCT 39.4 % 03/30/2015 Comp Metabolic Rbp148 NA 142 mEq/L 03/11/2015 Comp Metabolic Ldu550 K 4.4 mEq/L 03/11/2015 Comp Metabolic Jzv589 CL 107 mEq/L 03/11/2015 Comp Metabolic Xjx326 CO2 27.0 mEq/L 03/11/2015 Comp Metabolic Gum211 ANION GAP 12 03/11/2015 Comp Metabolic Fov944 GLUCOSE 106 mg/dL 03/11/2015 Comp Metabolic Zig843 Creat 1.1 mg/dL 03/11/2015 Comp Metabolic Tlt505 eGFR 68 ml/min/1.73m2 03/11/2015 Comp Metabolic Xex436 BUN 16 mg/dL 03/11/2015 Comp Metabolic Dgd392 B/C Ratio 14.3 Ratio 03/11/2015 Comp Metabolic Iwy702 CALCIUM 9.5 mg/dL 03/11/2015 Comp Metabolic Olq645 ALK PHOS 82 U/L 03/11/2015 Comp Metabolic Tvq552 AST(SGOT) 20 U/L 03/11/2015 Comp Metabolic Wuv791 ALT(SGPT) 17 U/L 03/11/2015 Comp Metabolic Ony387 BILI T 0.4 mg/dL 03/11/2015 Comp Metabolic Ngl120 ALBUMIN 4.0 g/dL 03/11/2015 Comp Metabolic Hjh556 TPRO 6.9 g/dL 03/11/2015 Comp Metabolic Ibt386 GLOB 2.9 g/dL 03/11/2015 Comp Metabolic Nsz785 A/G Ratio 1.4 Ratio 03/11/2015 Comp Metabolic Dxz645 Osmo 285 mOsmo 03/11/2015 Magnesium Ord90 Mag 2.2 mg/dL 03/11/2015 Digoxin Ord9 DIGOXIN 1.0 NG/ML 03/11/2015 Cbc [...] With Differential Ord2 RDW 15.3 % 03/11/2015 Tsh Ord6 hTSH II 2.39 uIU/mL 03/11/2015 Magnesium Ord90 Mag 2.1 mg/dL 12/24/2014 Metabolic Ord15 NA 137 mEq/L 12/24/2014 Metabolic [...] 12/24/2014 Metabolic Ord15 CALCIUM 9.5 mg/dL 12/24/2014 Review of Systems System Result [...] inspection of skin Location: face 10/22/2017 right [place], forehead, left [place]ian - irrirated actinic keratosis Full Exam - [...] dentition 04/10/2017 None Full Exam - General 1995 [...] inspection of skin Location: face 03/21/2016 right [place], forehead, left [place] - irrirated actinic keratosis Full Exam - [...] inspection of skin Location: face 11/23/2015 right [place], left [place] - irrirated actinic keratosis Full Exam - [...] inspection of skin Location: face 07/06/2015 right [place], forehead, left [place]ian - irrirated actinic keratosis Full Exam - [...] Procedure Codes Date THER/PROPH/DIAG INJ SC/IM CPT-4: 32402 02/28/2018 ROCEPHIN, PER 250 MG CPT- 4: J0696 02/28/2018 THER/PROPH/DIAG INJ SC/IM CPT-4: 52617 02/26/2018 TRIAMCINOLONE ACET INJ NOS CPT-4: J3301 02/26/2018 PPPS, SUBSEQ VISIT CPT- 4: G0439 2017 TRIAMCINOLONE ACET INJ NOS CPT-4: J3301 06/29/2017 THER/PROPH/DIAG INJ SC/IM CPT-4: 80378 02/06/2017 ROCEPHIN, PER 250 MG CPT- 4: J0696 02/06/2017 ROCEPHIN, PER 250 MG CPT- 4: J0696 09/27/2016 TRIAMCINOLONE ACET INJ NOS CPT-4: J3301 09/27/2016 THER/PROPH/DIAG INJ SC/IM CPT-4: 47620 09/27/2016 DESTRUCT PREMALG LESION CPT-4: 46847 10/14/2015 DESTRUCT PREMALG LESION CPT-4: 95653 07/20/2015 DESTRUCT PREMALG LESION CPT-4: 21564 07/06/2015 DESTRUCT PREMALG LES 2-14 CPT-4: 82405 07/06/2015 TRIAMCINOLONE ACET INJ NOS CPT-4: J3301 02/02/2015 Vital Signs Date Vital 02/28/2018 Blood Pressure 1: 124/72 Code: 8480-6 BMI: 30.0 Code: 17675-9 Heart Rate 1: 69 bpm Height: 5'8" SpO2: 97% Temperature: 36.6 (C) / 97.8 (F) Weight: 197 lbs 02/19/2018 Blood Pressure 1: 128/76 Code: 8480-6 BMI: 30.0 Code: 99947-4 Heart Rate 1: 66 bpm Height: 5'8" SpO2: 97% Weight: 197 lbs 11/09/2017 Blood Pressure 1: 130/74 Code: 8480-6 BMI: 29.3 Code: 69435-8 Heart Rate 1: 81 bpm Height: 5'8" SpO2: 98% Temperature: 36.6 (C) / 97.9 (F) Weight: 193 lbs 10/22/2017 Blood Pressure 1: 132/82 Code: 8480-6 BMI: 29.0 Code: 60376-6 Heart Rate 1: 80 bpm Height: 5'8" SpO2: 98% Weight: 191 lbs 2017 Blood Pressure 1: 142/68 Code: 8480-6 BMI: 28.7 Code: 29210-7 Heart Rate 1: 62 bpm Height: 5'8" SpO2: 98% Waist Measure (cm): 102 cm Weight: 189 lbs 07/23/2017 Blood Pressure 1: 138/84 Code: 8480-6 BMI: 29.0 Code: 49124-4 Heart Rate 1: 69 bpm Height: 5'8" SpO2: 98% Weight: 191 lbs 07/09/2017 Blood Pressure 1: 120/82 Code: 8480-6 BMI: 29.2 Code: 37195-5 Heart Rate 1: 80 bpm Height: 5'8" SpO2: 98% Weight: 192 lbs 06/29/2017 Blood Pressure 1: 140/82 Code: 8480-6 BMI: 29.5 Code: 63769-1 Heart Rate 1: 83 bpm Height: 5'8" SpO2: 98% Weight: 194 lbs 04/23/2017 Blood Pressure 1: 132/74 Code: 8480-6 BMI: 28.4 Code: 32487-2 Heart Rate 1: 78 bpm Height: 5'8" SpO2: 97% Weight: 187 lbs 04/10/2017 Blood Pressure 1: 126/68 Code: 8480-6 BMI: 29.5 Code: 89436-4 Heart Rate 1: 68 bpm Height: 5'8" SpO2: 92% Temperature: 37.5 (C) / 99.5 (F) Weight: 194 lbs 03/29/2017 Blood Pressure 1: 116/76 Code: 8480-6 BMI: 29.6 Code: 00875-6 Heart Rate 1: 61 bpm Height: 5'8" SpO2: 98% Weight: 195 lbs 02/06/2017 Blood Pressure 1: 130/74 Code: 8480-6 BMI: 30.4 Code: 98998-1 Heart Rate 1: 71 bpm Height: 5'8" SpO2: 98% Weight: 200 lbs 11/06/2016 Blood Pressure 1: 140/74 Code: 8480-6 BMI: 29.5 Code: 26680-3 Heart Rate 1: 76 bpm Height: 5'8" SpO2: 96% Weight: 194 lbs 09/27/2016 Blood Pressure 1: 138/78 Code: 8480-6 BMI: 29.6 Code: 20618-0 Heart Rate 1: 68 bpm Height: 5'8" SpO2: 97% Weight: 195 lbs 03/21/2016 Blood Pressure 1: 148/82 Code: 8480-6 BMI: 30.6 Code: 32603-9 Heart Rate 1: 67 bpm Height: 5'8" SpO2: 98% Weight: 201 lbs 02/01/2016 Blood Pressure 1: 128/86 Code: 8480-6 BMI: 30.3 Code: 73539-5 Heart Rate 1: 84 bpm Height: 5'8" SpO2: 96% Weight: 199 lbs 11/23/2015 Blood Pressure 1: 132/76 Code: 8480-6 BMI: 30.4 Code: 55036-9 Heart Rate 1: 81 bpm Height: 5'8" SpO2: 98% Weight: 200 lbs 10/14/2015 Blood Pressure 1: 120/80 Code: 8480-6 BMI: 30.4 Code: 19854-6 Heart Rate 1: 87 bpm Height: 5'8" SpO2: 97% Weight: 200 lbs 07/20/2015 Blood Pressure 1: 132/84 Code: 8480-6 BMI: 31.0 Code: 67211-2 Heart Rate 1: 78 bpm Height: 5'8" SpO2: 96% Weight: 204 lbs 07/06/2015 Blood Pressure 1: 130/78 Code: 8480-6 BMI: 31.0 Code: 04542-9 Heart Rate 1: 80 bpm Height: 5'8" SpO2: 98% Weight: 204 lbs 03/29/2015 Blood Pressure 1: 132/82 Code: 8480-6 BMI: 29.6 Code: 85576-2 Heart Rate 1: 76 bpm Height: 5'8" SpO2: 96% Weight: 195 lbs 03/08/2015 Blood Pressure 1: 126/84 Code: 8480-6 BMI: 30.2 Code: 17910-5 Heart Rate 1: 101 bpm Height: 5'8" SpO2: 98% Weight: 198 lbs 8 oz 02/02/2015 Blood Pressure 1: 132/86 Code: 8480-6 Heart Rate 1: 86 bpm SpO2: 98% Temperature: 36.6 (C) / 97.8 (F) Weight: 198 lbs 09/22/2014 Blood Pressure 1: 128/80 Code: 8480-6 BMI: 29.3 Code: 00232-7 Heart Rate 1: 85 bpm Height: 5'8" [...] Other allergic rhinitis[ICD10: J30.89] [facility] CPT- 4: 51620 02/28/2018 04565 EST. PATIENT, LEVEL IV Diagnosis: Other acute sinusitis[ICD10: J01.80] Diagnosis: Other allergic rhinitis[ICD10: J30.89] [facility] CPT- 4: 95796 02/19/2018 [id number] EST. PATIENT, LEVEL III Diagnosis: Acute laryngopharyngitis[ICD10: J06.0] Diagnosis: Other allergic rhinitis[ICD10: J30.89] Sandra Parsons MD, [facility] CPT- 4: 04840 11/09/2017 ([id number]) 12592 EST. PATIENT, LEVEL IV Diagnosis: Essential (primary) hypertension[ICD10: I10] Diagnosis: Chronic atrial fibrillation[ICD10: I48.2] Steffany Parsons MD, [facility] CPT-4: 55144 10/22/2017 ([id number]) 98871 EST. PATIENT, LEVEL IV Diagnosis: Essential (primary) hypertension[ICD10: I10] Diagnosis: Chronic atrial fibrillation[ICD10: I48.2] Diagnosis: Cough[ICD10: R05] Steffany Parsons MD, [facility] CPT-4: 99735 07/23/2017 ([id number]) 45221 EST. PATIENT, LEVEL III Diagnosis: Cough[ICD10: R05] Diagnosis: Other allergic rhinitis[ICD10: J30.89] Diagnosis: Chronic obstructive pulmonary disease with (acute) exacerbation[ICD10: J44.1] Lucrecia Parsons MD, [facility] CPT-4: 70016 07/09/2017 ([id number]) 26549 EST. PATIENT, LEVEL III Diagnosis: Cough[ICD10: R05] Diagnosis: Other allergic rhinitis[ICD10: J30.89] Diagnosis: Chronic obstructive pulmonary disease with (acute) exacerbation[ICD10: J44.1] Lucrecia Parsons MD, [facility] CPT-4: 45281 06/29/2017 ([id number]) 09974 EST. PATIENT, LEVEL III Diagnosis: Essential (primary) hypertension[ICD10: I10] Diagnosis: Cough[ICD10: R05] Steffany Parsons MD, [facility] CPT-4: 79230 04/23/2017 ([id number]) 09473 EST. PATIENT, LEVEL IV Diagnosis: Hemoptysis[ICD10: R04.2] Diagnosis: Essential (primary) hypertension[ICD10: I10] Diagnosis: Chronic obstructive pulmonary disease with acute lower respiratory infection[ICD10: J44.0] Steffany Parsons MD, [facility] CPT-4: 52057 04/10/2017 39167 EST. PATIENT, LEVEL III Diagnosis: Acute laryngopharyngitis[ICD10: J06.0] Diagnosis: Other allergic rhinitis[ICD10: J30.89] Sandra Parsons MD [facility] CPT- 4: 00743 03/29/2017 ([id number]) 65041 EST. PATIENT, LEVEL III Diagnosis: Pneumonia due to Mycoplasma pneumoniae[ICD10: J15.7] Diagnosis: Cough[ICD10: R05] Diagnosis: Other chest pain[ICD10: R07.89] Steffany Parsons MD, [facility] CPT-4: 28371 02/06/2017 37504 EST. PATIENT, LEVEL IV Diagnosis: Cough[ICD10: R05] Diagnosis: Shortness of breath[ICD10: R06.02] Diagnosis: Gastro-esophageal reflux disease without esophagitis[ICD10: K21.9] Sandra Parsons MD, [facility] CPT-4: 77130 11/06/2016 01233 EST. PATIENT, LEVEL IV Diagnosis: Other allergic rhinitis[ICD10: J30.89] Diagnosis: Acute bronchitis due to other specified organisms[ICD10: J20.8] Sandra Parsons MD, [facility] CPT-4: 17544 09/27/2016 ([id number]) 06453 EST. PATIENT, LEVEL IV Diagnosis: Essential (primary) hypertension[ICD10: I10] Diagnosis: Chronic atrial fibrillation[ICD10: I48.2] Diagnosis: Encounter for therapeutic drug level monitoring[ICD10: Z51.81] Steffany Parsons MD [facility] CPT-4: 76793 03/21/2016 ([id number]) 41547 EST. 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 PATIENT, LEVEL III Diagnosis: Allergic rhinitis due to pollen[ICD10: J30.1] Diagnosis: Actinic keratosis[ICD10: L57.0] Lucrecia Parsons MD, [facility] CPT-4: 39082 10/14/2015 ([id number]) [id number] EST. PATIENT, LEVEL IV Diagnosis: Essential (primary) hypertension[ICD10: I10] Diagnosis: Chronic atrial fibrillation[ICD10: I48.2] Steffany Parsons MD, [facility] CPT-4: 40696 07/06/2015 [id number] EST. PATIENT, LEVEL III Diagnosis: Essential (primary) hypertension[ICD10: I10] Diagnosis: Chronic atrial fibrillation[ICD10: I48.2] Diagnosis: Shortness of breath[ICD10: R06.02] Diagnosis: Melena[ICD10: K92.1] Sandra Parsons MD, [facility] CPT-4: 94591 03/29/2015 ([id number]) [id number] EST. PATIENT, LEVEL IV Diagnosis: Essential (primary) hypertension[ICD10: I10] Diagnosis: Chronic atrial fibrillation[ICD10: I48.2] Diagnosis: Cough[ICD10: R05] Steffany Parsons MD, [facility] CPT-4: 05484 03/08/2015 ([id number]) 16215 EST. PATIENT, LEVEL III Diagnosis: Other seasonal allergic rhinitis[ICD10: J30.2] Diagnosis: Other lesions of oral mucosa[ICD10: K13.79] Lucrecia Parsons MD, [facility] CPT-4: 51864 02/02/2015 ([id number]) OFFICE VISIT, NEW - LEVEL 4 Diagnosis: ESSENTIAL HYPERTENSION[ICD9: 401.9] Diagnosis: HYPERLIPIDEMIA[ICD9: 272.4] Diagnosis: ACTINIC KERATOSIS[ICD9: 702.0] Steffany Parsons MD, [facility] CPT-4: 04176 09/22/2014 Plan of Care Planned Activity Notes [...] in the nasal steroid allergy spray. 02/28/2018 Patient Education: Patient Medication Summary Completed [...] allergy spray. 02/19/2018 Appointment: Sandra Tim WPtel: [facility] 3[facility] (15 min) Moderate 02/19/2018 Patient Education: Patient [...] allergy spray. 11/09/2017 Appointment: [phone] (15 min) Moderate 11/09/2017 Patient Education: Patient [...] becoming uncontrolled. 10/22/2017 Appointment: Steffany Parsons WPtel: [phone] [facility] (15 min) Moderate 10/22/2017 Patient Education: Patient [...] nasal spray) 07/23/2017 Appointment: [facility] Parsons [phone] (15 min) Moderate 07/23/2017 Patient Education: Patient [...] Summary Completed 06/29/2017 Appointment: Steffany Parsons WPtel: [phone] [facility] (15 min) Moderate 04/30/2017 Visit Plan: Hypertension [...] treatments. 04/23/2017 Appointment: Steffany Parsons WPtel: [phone] [facility] [place] (15 min) Moderate 04/23/2017 Patient Education: Patient Medication Summary Completed 04/23/2017 Visit Plan: Hemoptysis and COPD exacerbation - continue with antibiotics, rx for antifungal tablet and suspension. chest xray ordered, monitor symptoms. Pt to stop aspirin x 1 week, continue with eliquis. call if s ymptoms are not improving. rx for phenergan with codeine. 04/10/2017 Appointment: Steffany Parsons WPtel: [phone] [facility] [place] (15 min) Moderate 04/10/2017 Patient Education: Patient [...] spray. 03/29/2017 Appointment: Sandra Tim WPtel: [phone] [facility] (15 min) Moderate 03/29/2017 Patient Education: Patient Medication Summary Completed 03/29/2017 Visit Plan: Pneumonia - Pt has been diagnosed with pneumonia by physical exam. A chest xray has been ordered as have antibiotics. The pt is aware of the diagnosis and the need for acute treatment of this illness. Cough - rx for promethazine/codeine syrup for cough. 02/06/2017 Appointment: BaileySteffany WPtel: [phone] [facility] (15 min) Moderate 02/06/2017 Patient Education: Patient [...] not improving. 11/06/2016 Appointment: Sandra Tim WPtel: [phone] [facility] (15 min) Moderate 11/06/2016 Patient [...] worsen. 09/27/2016 Appointment: [facility]el[phone] (30 min) Complex 09/27/2016 Patient Education: Patient [...] becoming uncontrolled. 03/21/2016 Appointment: Steffany Parsons WPtel: [facility][note 3][address] (15 min) Moderate 03/21/2016 Patient Education: Patient Medication Summary Completed 03/21/2016 Patient Education: Obesity Completed 03/21/2016 Visit Plan: Diarrhea-recent abx use-check stool for cdiff-increase probiotic to twice daily-bland diet advance as tolerated-call if symptoms do not resolve or if any worse. Patient verbalized understanding of plan. 02/01/2016 Appointment: Lucrecia Yeager WPtel: [facility][note 3][address] [place] [address] [place] [address] (15 min) Moderate 02/01/2016 Patient Education: Patient Medication Summary Completed 02/01/2016 Patient Education: Obesity Completed 02/01/2016 Referral: Alexi Honeycutt [address] Info faxed Completed 11/27/2015 Visit Plan: [...] Summary Completed 11/23/2015 Appointment: Steffany Parsons WPtel: [facility][note 3][address] (15 min) Moderate 11/15/2015 Visit Plan: [...] not heal 10/14/2015 Appointment: Lucrecia Yeager WPtel: [address] [place] [address] (15 min) Moderate 10/14/2015 Patient Education: Patient [...] acute concerns. 07/20/2015 Appointment: Lucrecia Yeager WPtel: [address] [place] [address] (30 min) Complex 07/20/2015 Patient Education: Patient [...] concerns. 07/06/2015 Appointment: Steff[facility] Parsons [facility]Ptel[phone] (15 min) Moderate 07/06/2015 Patient Education: Patient [...] - pt has an upcoming appointment with independent living specialist to possibly have an ablation done. [...] Patient Education: Hypertension Completed 03/08/2015 [facility] Ref[facility] Completed 02/13/2015 Visit Plan: [...] 02/02/2015 Care Plan: Referral Order SNOMED-CT : [id number] Ordered 02/02/2015 Visit Plan: Hypertension - well [...] not improving. 09/22/2014 Appointment: Steffany Parsons WPtel: [address] [place], [place] [id number] [place] New Patient 09/22/2014 Patient Education: Patient Medication Summary Completed 09/22/2014 Patient Education: Hypertension Completed 09/22/2014 Referral: Alexi Honeycutt [facility] Referral Initiated Instructions Comment . Hypertension - [...] - pt has an upcoming appointment with independent living specialist to possibly have an ablation done. [...] on lesions, call if not improving. . URI - Pt advised to increase [...]
--- OUTSIDE RECORDS SUMMARY | 2018-08-31 19:20 | XMS REPORT | CCD ---
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 Name Role Phone PP Unavailable CCM Unavailable Summary Purpose Interface Exchange Insurance Providers Payer name Policy type / Coverage type Covered republican ID Effective Begin Date Effective End Date [facility] Commercial Insurance [id number] Unknown Unknown Family history Father Diagnosis Age At Onset Prostate Cancer Unknown Runs in the family Diagnosis Age At Onset Hypertension Unknown Mother Diagnosis Age At Onset No Family Disease Entered N/A Social History Social History Element Codes Description Effective Dates Marital status Unknown Mary 02/06/2017 Number of children Unknown 5 09/22/[address]: 9319619 Quit over 10 years ago 09/22/[address]: 793507498 Never drinks alcohol 09/22/2014 Allergies, Adverse Reactions, Alerts Substance Reaction Codes Entered Date Inactivated Date Status * NO KNOWN DRUG ALLERGIES Unknown 09/22/2014 No Inactive Date Active Past Medical History Illness Codes Condition Status Onset Date Resolved Date Allergic rhinitis due to pollen ICD-9: 477.9 ICD-10: J30.1 Active 11/22/2015 Unknown Other acute sinusitis ICD- 9: 461.8 ICD-10: J01.80 Active 02/19/2018 Unknown Other allergic rhinitis ICD-9: 477.8 ICD-10: J30.89 Active 09/27/2016 Unknown Acute laryngopharyngitis ICD-9: 465.0 ICD-10: J06.0 [...] Problems Condition Codes Effective Dates Condition Status Allergic rhinitis due to pollen ICD-9: 477.9 ICD-10: J30.1 11/22/2015 Active Other acute sinusitis ICD- 9: 461.8 ICD-10: J01.80 02/19/2018 Active Other allergic rhinitis ICD-9: 477.8 ICD-10: J30.89 09/27/2016 Active Acute laryngopharyngitis ICD-9: 465.0 ICD-10: J06.0 [...] Start Date Stop Date Status Fill Instructions Kenalog 40 mg/mL suspension for injection RxNorm: 8703663 Milliliter(s) Inj 02/26/2018 02/26/2018 Inactive Keflex 500 mg capsule RxNorm: 050097 1 Capsule(s) PO TID 02/19/2018 02/25/2018 Inactive Klor-Con M20 mEq tablet,extended release RxNorm: 2749613 TAKE 1 TABLET EVERY MORNING 12/04/2017 No Stop Date Active prednisone 20 mg tablet RxNorm: 329881 2 Tablet(s) PO daily 11/16/2017 11/20/2017 Inactive START TOMORROW Zithromax Z-Mau 250 mg tablet RxNorm: 070506 1 Tablet(s) PO daily 11/16/2017 11/20/2017 Inactive Zithromax Z-Mau 250 mg tablet RxNorm: 364859 1 Tablet(s) PO daily 11/16/2017 11/15/2017 Inactive Keflex 500 mg capsule RxNorm: 360596 1 Capsule(s) PO TID 11/09/2017 11/15/2017 Inactive Zithromax 250 mg tablet RxNorm: 625959 [address] day and 1 tab po on day 2-5 Tablet(s) PO 08/30/2017 09/03/2017 Inactive zpack x 1 doxycycline hyclate 100 mg tablet RxNorm: 672449 1 Tablet(s) PO BID 07/09/2017 07/15/2017 Inactive prednisone 20 mg tablet RxNorm: 983362 2 Tablet(s) PO daily 06/29/2017 07/01/2017 Inactive START TOMORROW Kenalog 40 mg/mL suspension for injection RxNorm: 0429781 Milliliter(s) Inj 06/29/2017 06/29/2017 Inactive Lasix 40 mg tablet RxNorm: 694577 TAKE 1 TABLET DAILY 04/24/2017 No Stop Date Active Diflucan 150 mg tablet RxNorm: 424264 1 Tablet(s) PO daily 04/10/2017 04/16/2017 Inactive Bactrim DS 800 mg-160 mg tablet RxNorm: 664452 1 Tablet(s) PO BID 04/10/2017 04/16/2017 Inactive nystatin 100,000 unit/mL oral suspension RxNorm: 271701 5 Milliliter(s) PO QID 04/10/2017 04/19/2017 Inactive cefdinir 300 mg capsule RxNorm: 672787 1 Capsule(s) PO BID 03/28/2017 04/06/2017 Inactive cefdinir 300 mg capsule RxNorm: 163286 1 Capsule(s) PO BID 02/06/2017 02/15/2017 Inactive ceftriaxone 500 mg solution for injection RxNorm: 9516465 Inj 02/06/2017 02/06/2017 Inactive omeprazole 20 mg tablet,delayed release RxNorm: 873915 1 Tablet(s) PO daily 11/06/2016 12/05/2016 Inactive Phenergan with Codeine Syrup RxNorm: 5 Milliliter(s) PO QID as needed 10/30/2016 No Stop Date Active Tessalon Perles 100 mg capsule RxNorm: 935919 1-2 Capsule(s) PO TID as needed cough 10/30/2016 11/08/2016 Inactive Klor-Con M20 mEq tablet,extended release RxNorm: 7771068 TAKE 1 TABLET EVERY MORNING 10/26/2016 12/03/2017 Inactive ceftriaxone 500 mg solution for injection RxNorm: 8547477 1 Milliliter(s) Inj 09/27/2016 09/27/2016 Inactive Phenergan with Codeine Syrup RxNorm: 5 Milliliter(s) PO QID as needed 09/27/2016 10/29/2016 Inactive Tessalon Perles 100 mg capsule RxNorm: 979722 1-2 Capsule(s) PO TID as needed cough 09/27/2016 09/29/2016 Inactive Kenalog 40 mg/mL suspension for injection RxNorm: 6786478 1 Milliliter(s) Inj 09/27/2016 09/27/2016 Inactive Flagyl 500 mg tablet RxNorm: 715806 1 Tablet(s) PO TID 2016 08/05/2016 Inactive Lasix 40 mg tablet RxNorm: 523824 TAKE 1 TABLET DAILY 07/26/2016 04/23/2017 Inactive Zithromax 250 mg tablet RxNorm: 858707 [address] day and 1 tab po on day 2-5 Tablet(s) PO 03/28/2016 03/27/2016 Inactive zpack x 1 Zithromax 250 mg tablet RxNorm: 536118 [address] day and 1 tab po on day 2-5 Tablet(s) PO 03/28/2016 04/01/2016 Inactive zpack x 1 Flagyl 500 mg tablet RxNorm: 720240 1 Tablet(s) PO TID 02/07/2016 02/06/2016 Inactive Flagyl 500 mg tablet RxNorm: 646555 1 Tablet(s) PO TID 02/07/2016 02/16/2016 Inactive Zyrtec-D 5 mg-120 mg tablet,extended release RxNorm: 3190139 1 Tablet(s) PO daily as needed allergies 11/23/2015 No Stop Date Active Imodium A-D 2 mg tablet RxNorm: 500520 1/2 Tablet(s) PO daily 11/23/2015 No Stop Date Active Mucinex 600 mg tablet, extended release RxNorm: 105318 1 Tablet(s) PO BID as needed 11/23/2015 01/21/2016 Inactive Lasix 40 mg tablet RxNorm: 848959 TAKE 1 TABLET DAILY 11/01/2015 07/25/2016 Inactive Klor-Con M20 mEq tablet,extended release RxNorm: 3684596 TAKE 1 TABLET EVERY MORNING 11/01/2015 10/25/2016 Inactive Flonase Allergy Relief 50 mcg/actuation nasal spray,suspension RxNorm: 2 [place] NASAL daily 07/20/2015 No Stop Date Active Kenalog 40 mg/mL suspension for injection RxNorm: 4951067 Milliliter(s) Inj 02/02/2015 02/02/2015 Inactive Crestor 5 mg tablet RxNorm: 354862 1/2 Tablet(s) PO daily 10/05/2014 09/29/2015 Inactive metoprolol tartrate 100 mg tablet RxNorm: 186327 1 Tablet(s) PO BID 10/05/2014 12/28/2015 Inactive Plavix 75 mg tablet RxNorm: 786359 1 Tablet(s) PO daily 10/05/2014 03/07/2015 Inactive Klor-Con M20 mEq tablet,extended release RxNorm: 020031 1 Tablet(s) PO QAM 10/05/2014 10/31/2015 Inactive Lasix 40 mg tablet RxNorm: 556337 1 Tablet(s) PO daily 10/05/2014 10/31/2015 Inactive Efudex 5 % topical cream RxNorm: 574912 1 Application TOP BID x 2 weeks, allow healing x 1 -2 weeks, then reuse 10/05/2014 07/05/2015 Inactive Pradaxa 150 mg capsule RxNorm: 2011988 1 Capsule(s) PO BID 10/05/2014 04/09/2017 Inactive amlodipine 10 mg tablet RxNorm: 773681 1/2 Tablet(s) PO QAM 10/05/2014 07/05/2015 Inactive Efudex 5 % topical cream RxNorm: 869140 1 Application TOP BID x 2 weeks, allow healing x 1 -2 weeks, then reuse 09/22/2014 10/04/2014 Inactive Klor-Con M20 mEq tablet,extended release RxNorm: 959382 1 Tablet(s) PO QAM 09/22/2014 10/04/2014 Inactive Lasix 40 mg tablet RxNorm: 1 Tablet(s) PO daily 09/22/2014 10/04/2014 Inactive Cartia XT 180 mg capsule,extended release RxNorm: 954376 2 Capsule(s) PO daily No Start Date Active cetirizine 10 mg tablet RxNorm: 6749884 1 Tablet(s) PO daily at lunch No Start Date Active Canasa 1,000 mg rectal suppository RxNorm: 653546 [address] seymour No Start Date Active Lialda 1.2 gram tablet,delayed release RxNorm: 356554 1 Tablet(s) PO QHS -Prescried by Dr. Seymour No Start Date Active Centrum Silver oral RxNorm: 48809 oral No Start Date Active Eliquis 5 mg tablet RxNorm: 1111893 1 Tablet(s) PO BID Dr Avila No Start Date Active aspirin 81 mg capsule,delayed release RxNorm: 122872 1 Capsule(s) PO daily No Start Date Active losartan 25 mg tablet RxNorm: 300497 1 Tablet(s) PO QPM at supper No Start Date Active digoxin 250 mcg tablet RxNorm: 394717 1 Tablet(s) PO daily No Start Date Active Vitamin D3 5,000 unit tablet RxNorm: 490991 1 Tablet(s) PO BID No Start Date Active Probiotic oral RxNorm: 6205 oral No Start Date Active Glucosamine Chondroit Complx Advan oral RxNorm: oral No Start Date Active Plavix 75 mg tablet RxNorm: 536098 1 Tablet(s) PO daily No Start Date 10/04/2014 Inactive Klor-Con M20 mEq tablet,extended release RxNorm: 303044 1 Tablet(s) PO QAM No Start Date 09/21/2014 Inactive Imodium oral RxNorm: oral No Start Date 11/22/2015 Inactive Lasix 40 mg tablet RxNorm: 1 Tablet(s) PO daily No Start Date 09/21/2014 Inactive amlodipine 10 mg tablet RxNorm: 557236 1/2 Tablet(s) PO QAM No Start Date 10/04/2014 Inactive Crestor 5 mg tablet RxNorm: 916614 1/2 Tablet(s) PO daily No Start Date 10/04/2014 Inactive Flonase Allergy Relief 50 mcg/actuation nasal spray,suspension RxNorm: 1 [place] NASAL daily No Start Date 07/19/2015 Inactive metoprolol tartrate 100 mg tablet RxNorm: 304426 1 Tablet(s) PO BID No Start Date 10/04/2014 Inactive Probiotic 4X oral RxNorm: 4342019 oral No Start Date 07/06/2015 Inactive Pradaxa 150 mg capsule RxNorm: 4576959 1 Capsule(s) PO BID No Start Date 10/04/2014 Inactive Medication Administered Medication Codes Instructions Start Date Status Kenalog 40 mg/mL suspension for injection RxNorm: 2843941 Milliliter 02/26/2018 Active Kenalog 40 mg/mL suspension for injection RxNorm: 7127725 Milliliter 06/29/2017 No longer Active ceftriaxone 500 mg solution for injection RxNorm: 3068108 02/06/2017 No longer Active Kenalog 40 mg/mL suspension for injection RxNorm: 7571872 1Milliliter 09/27/2016 No longer Active ceftriaxone 500 mg solution for injection RxNorm: 6596356 1Milliliter 09/27/2016 No longer Active Kenalog 40 mg/mL suspension for injection RxNorm: 8371915 Milliliter 02/02/2015 No longer Active Immunizations Vaccine Codes Date Status SHINGARIX CVX: 121 01/07/2018 completed Influenza CVX: 141 12/26/2017 completed Pneumococcal CVX: 133 12/26/2017 completed Influenza CVX: 141 01/10/2017 completed Influenza CVX: 141 01/07/2016 completed Influenza CVX: 141 12/01/2013 completed Zoster CVX: 121 04/02/2011 completed Pneumococcal CVX: 33 09/01/2007 completed Assessments Condition Codes Effective Dates Allergic rhinitis due to pollen ICD-10: J30.1 ICD-9: 477.9 02/26/2018 Other allergic rhinitis ICD-10: J30.89 ICD-9: 477.8 02/19/2018 Other acute sinusitis ICD-10: J01.80 ICD-9: 461.8 02/19/2018 Acute laryngopharyngitis ICD-10: J06.0 ICD-9: 465.0 11/09/2017 [...] For Visit Effective Dates Notes sinus congestion 02/19/2018 sore throat 11/09/2017 hypertension [...] 31.4 pg 10/23/2017 Cbc With Differential Ord2 Clare% 8.5 % 10/23/2017 Cbc With Differential Ord2 [...] 2.73 K/ul 10/23/2017 Cbc With Differential Ord2 Clare ABS# 0.9 K/ul 10/23/2017 Cbc With Differential Ord2 Eos ABS# 0.6 K/ul 10/23/2017 Cbc With Differential Ord2 Baso ABS# 0.0 K/ul 10/23/2017 Digoxin Ord9 DIGOXIN 1.0 NG/ML 10/23/2017 Lipid Ord30 CHOL 108 mg/dL 10/23/2017 Lipid Ord30 HDL 39.0 mg/dl 10/23/2017 Lipid Ord30 TRIG 175 mg/dL 10/23/2017 Lipid Ord30 LDL 34 mg/dL 10/23/2017 Lipid Ord30 C/HDL 2.8 Ratio 10/23/2017 Comp Metabolic Auo939 NA 140 mEq/L 10/23/2017 Comp Metabolic Rem553 K 4.1 mEq/L 10/23/2017 Comp Metabolic Kss844 CL 102 mEq/L 10/23/2017 Comp Metabolic Dcq090 CO2 30.0 mEq/L 10/23/2017 Comp Metabolic Wbm477 ANION GAP 12 10/23/2017 Comp Metabolic Bze029 GLUCOSE 124 mg/dL 10/23/2017 Comp Metabolic Fsc232 Creat 1.1 mg/dL 10/23/2017 Comp Metabolic Bgt700 eGFR 71 ml/min/1.73m2 10/23/2017 Comp Metabolic Zdp780 BUN 11 mg/dL 10/23/2017 Comp Metabolic Usi108 B/C Ratio 10.2 Ratio 10/23/2017 Comp Metabolic Uew739 CALCIUM 9.3 mg/dL 10/23/2017 Comp Metabolic Cxz712 ALK PHOS 72 U/L 10/23/2017 Comp Metabolic Prv205 AST(SGOT) 21 U/L 10/23/2017 Comp Metabolic Kni492 ALT(SGPT) 17 U/L 10/23/2017 Comp Metabolic Arm718 BILI T 0.8 mg/dL 10/23/2017 Comp Metabolic Myl533 ALBUMIN 4.3 g/dL 10/23/2017 Comp Metabolic Mes789 TPRO 7.4 g/dL 10/23/2017 Comp Metabolic Pma341 GLOB 3.1 g/dL 10/23/2017 Comp Metabolic Kbx088 A/G Ratio 1.4 Ratio 10/23/2017 Comp Metabolic Zax914 Osmo 280 mOsmo 10/23/2017 Tsh Ord6 TSH (3rd IS) 3.37 uIU/mL 10/23/2017 Test(s) Not Perfromed [id number] Test(s) Not Performed Test(s) Not Performed. See Below: 10/23/2017 Test(s) Not Perfromed [id number] TEST NAME PSA 10/23/2017 Test(s) Not Perfromed [id number] Rejection Reason PSA Performed yearly at Dr. Stone's Office 10/23/2017 Test(s) Not Perfromed [id number] COMMENT N/A 10/23/2017 Test(s) Not Perfromed [id number] Research And Development Manager Gian Johnson 10/23/2017 Comp Metabolic Rsx756 NA 137 mEq/L 03/21/2016 Comp Metabolic Kbn772 K 4.6 mEq/L 03/21/2016 Comp Metabolic Yus958 CL 101 mEq/L 03/21/2016 Comp Metabolic Ohx336 CO2 31.0 mEq/L 03/21/2016 Comp Metabolic Hdi558 ANION GAP 10 03/21/2016 Comp Metabolic Jna763 GLUCOSE 106 mg/dL 03/21/2016 Comp Metabolic Ywj591 Creat 1.1 mg/dL 03/21/2016 Comp Metabolic Fpl858 eGFR 69 ml/min/1.73m2 03/21/2016 Comp Metabolic Wmm326 BUN 11 mg/dL 03/21/2016 Comp Metabolic Inb317 B/C Ratio 9.9 Ratio 03/21/2016 Comp Metabolic Wve669 CALCIUM 9.5 mg/dL 03/21/2016 Comp Metabolic Vrf542 ALK PHOS 88 U/L 03/21/2016 Comp Metabolic Gew314 AST(SGOT) 21 U/L 03/21/2016 Comp Metabolic Wjj448 ALT(SGPT) 15 U/L 03/21/2016 Comp Metabolic Aln897 BILI T 0.7 mg/dL 03/21/2016 Comp Metabolic Fsn317 ALBUMIN 4.2 g/dL 03/21/2016 Comp Metabolic Lmw712 TPRO 7.9 g/dL 03/21/2016 Comp Metabolic Pbe026 GLOB 3.7 g/dL 03/21/2016 Comp Metabolic Mrx653 A/G Ratio 1.1 Ratio 03/21/2016 Comp Metabolic Zzt496 Osmo 274 mOsmo 03/21/2016 Lipid Ord30 CHOL [...] 20.9 % 03/21/2016 Cbc With Differential Ord2 Clare% 10.3 % 03/21/2016 Cbc With Differential Ord2 MCH 31.3 pg 03/21/2016 Cbc With Differential Ord2 MCHC 33.6 pg 03/21/2016 Cbc With Differential Ord2 Eos% 5.7 % 03/21/2016 Cbc With Differential Ord2 PLT 224 K/ul 03/21/2016 Cbc With Differential Ord2 Baso% 0.2 % 03/21/2016 Cbc With Differential Ord2 RDW 13.9 % 03/21/2016 Cbc With Differential Ord2 Neut ABS# 7.57 K/ul 03/21/2016 Cbc With Differential Ord2 Lymph ABS# 2.51 K/ul 03/21/2016 Cbc With Differential Ord2 [place] ABS# 1.2 K/ul 03/21/2016 Cbc With Differential Ord2 Eos ABS# 0.7 K/ul 03/21/2016 Cbc With Differential Ord2 Baso ABS# 0.0 K/ul 03/21/2016 Clostridium Diff Tox A/B Vnm664 Cdiff Negative 02/01/2016 Culture Mrsa [id number] MRSA CULTURE SEE NOTES 04/09/2015 Digoxin Ord9 [...] Ord65 HCT 39.4 % 03/30/2015 Comp Metabolic Tti928 NA 142 mEq/L 03/11/2015 Comp Metabolic Cmy804 K 4.4 mEq/L 03/11/2015 Comp Metabolic Zon018 CL 107 mEq/L 03/11/2015 Comp Metabolic Art001 CO2 27.0 mEq/L 03/11/2015 Comp Metabolic Zmz478 ANION GAP 12 03/11/2015 Comp Metabolic Poe307 GLUCOSE 106 mg/dL 03/11/2015 Comp Metabolic Llq827 Creat 1.1 mg/dL 03/11/2015 Comp Metabolic Eru174 eGFR 68 ml/min/1.73m2 03/11/2015 Comp Metabolic Igk604 BUN 16 mg/dL 03/11/2015 Comp Metabolic Bgx222 B/C Ratio 14.3 Ratio 03/11/2015 Comp Metabolic Mxw231 CALCIUM 9.5 mg/dL 03/11/2015 Comp Metabolic Vca788 ALK PHOS 82 U/L 03/11/2015 Comp Metabolic Ybf942 AST(SGOT) 20 U/L 03/11/2015 Comp Metabolic Uhh006 ALT(SGPT) 17 U/L 03/11/2015 Comp Metabolic Ohk645 BILI T 0.4 mg/dL 03/11/2015 Comp Metabolic Kih891 ALBUMIN 4.0 g/dL 03/11/2015 Comp Metabolic Fzq108 TPRO 6.9 g/dL 03/11/2015 Comp Metabolic Zuv430 GLOB 2.9 g/dL 03/11/2015 Comp Metabolic Poj012 A/G Ratio 1.4 Ratio 03/11/2015 Comp Metabolic Cbx506 Osmo 285 mOsmo 03/11/2015 Magnesium Ord90 Mag [...] System Result Effective Dates Constitutional recent illness 02/19/2018 Constitutional No chills [...] inspection of skin Location: face 10/22/2017 right scientology, forehead, left scientology - irrirated actinic keratosis Full Exam - [...] inspection of skin Location: face 03/21/2016 right scientology, forehead, left scientology - irrirated actinic keratosis Full Exam - [...] inspection of skin Location: face 11/23/2015 right scientology, left scientology - irrirated actinic keratosis Full Exam - [...] inspection of skin Location: face 07/06/2015 right scientology, forehead, left scientology - irrirated actinic keratosis Full Exam - [...] Procedure Codes Date THER/PROPH/DIAG INJ SC/IM CPT-4: 10159 02/26/2018 TRIAMCINOLONE ACET INJ NOS CPT-4: J3301 02/26/2018 PPPS, SUBSEQ VISIT CPT- 4: G0439 2017 TRIAMCINOLONE ACET INJ NOS CPT-4: J3301 06/29/2017 THER/PROPH/DIAG INJ SC/IM CPT-4: 56424 02/06/2017 ROCEPHIN, PER 250 MG CPT- 4: J0696 02/06/2017 ROCEPHIN, PER 250 MG CPT- 4: J0696 09/27/2016 TRIAMCINOLONE ACET INJ NOS CPT-4: J3301 09/27/2016 THER/PROPH/DIAG INJ SC/IM CPT-4: 05117 09/27/2016 DESTRUCT PREMALG LESION CPT-4: 23296 10/14/2015 DESTRUCT PREMALG LESION CPT-4: 53077 07/20/2015 DESTRUCT PREMALG LESION CPT-4: 50965 07/06/2015 DESTRUCT PREMALG LES 2-14 CPT-4: 48709 07/06/2015 TRIAMCINOLONE ACET INJ NOS CPT-4: J3301 02/02/2015 Vital Signs Date Vital 02/19/2018 Blood Pressure 1: 128/76 Code: 8480-6 BMI: 30.0 Code: 15272-3 Heart Rate 1: 66 bpm Height: 5'8" SpO2: 97% Weight: 197 lbs 11/09/2017 Blood Pressure 1: 130/74 Code: 8480-6 BMI: 29.3 Code: 27179-9 Heart Rate 1: 81 bpm Height: 5'8" SpO2: 98% Temperature: 36.6 (C) / 97.9 (F) Weight: 193 lbs 10/22/2017 Blood Pressure 1: 132/82 Code: 8480-6 BMI: 29.0 Code: 70863-4 Heart Rate 1: 80 bpm Height: 5'8" SpO2: 98% Weight: 191 lbs 2017 Blood Pressure 1: 142/68 Code: 8480-6 BMI: 28.7 Code: 66199-6 Heart Rate 1: 62 bpm Height: 5'8" SpO2: 98% Waist Measure (cm): 102 cm Weight: 189 lbs 07/23/2017 Blood Pressure 1: 138/84 Code: 8480-6 BMI: 29.0 Code: 69581-8 Heart Rate 1: 69 bpm Height: 5'8" SpO2: 98% Weight: 191 lbs 07/09/2017 Blood Pressure 1: 120/82 Code: 8480-6 BMI: 29.2 Code: 19893-2 Heart Rate 1: 80 bpm Height: 5'8" SpO2: 98% Weight: 192 lbs 06/29/2017 Blood Pressure 1: 140/82 Code: 8480-6 BMI: 29.5 Code: 86864-4 Heart Rate 1: 83 bpm Height: 5'8" SpO2: 98% Weight: 194 lbs 04/23/2017 Blood Pressure 1: 132/74 Code: 8480-6 BMI: 28.4 Code: 42747-4 Heart Rate 1: 78 bpm Height: 5'8" SpO2: 97% Weight: 187 lbs 04/10/2017 Blood Pressure 1: 126/68 Code: 8480-6 BMI: 29.5 Code: 70451-4 Heart Rate 1: 68 bpm Height: 5'8" SpO2: 92% Temperature: 37.5 (C) / 99.5 (F) Weight: 194 lbs 03/29/2017 Blood Pressure 1: 116/76 Code: 8480-6 BMI: 29.6 Code: 24485-3 Heart Rate 1: 61 bpm Height: 5'8" SpO2: 98% Weight: 195 lbs 02/06/2017 Blood Pressure 1: 130/74 Code: 8480-6 BMI: 30.4 Code: 19691-6 Heart Rate 1: 71 bpm Height: 5'8" SpO2: 98% Weight: 200 lbs 11/06/2016 Blood Pressure 1: 140/74 Code: 8480-6 BMI: 29.5 Code: 83184-3 Heart Rate 1: 76 bpm Height: 5'8" SpO2: 96% Weight: 194 lbs 09/27/2016 Blood Pressure 1: 138/78 Code: 8480-6 BMI: 29.6 Code: 68257-4 Heart Rate 1: 68 bpm Height: 5'8" SpO2: 97% Weight: 195 lbs 03/21/2016 Blood Pressure 1: 148/82 Code: 8480-6 BMI: 30.6 Code: 36770-2 Heart Rate 1: 67 bpm Height: 5'8" SpO2: 98% Weight: 201 lbs 02/01/2016 Blood Pressure 1: 128/86 Code: 8480-6 BMI: 30.3 Code: 24465-5 Heart Rate 1: 84 bpm Height: 5'8" SpO2: 96% Weight: 199 lbs 11/23/2015 Blood Pressure 1: 132/76 Code: 8480-6 BMI: 30.4 Code: 13980-3 Heart Rate 1: 81 bpm Height: 5'8" SpO2: 98% Weight: 200 lbs 10/14/2015 Blood Pressure 1: 120/80 Code: 8480-6 BMI: 30.4 Code: 36796-1 Heart Rate 1: 87 bpm Height: 5'8" SpO2: 97% Weight: 200 lbs 07/20/2015 Blood Pressure 1: 132/84 Code: 8480-6 BMI: 31.0 Code: 89068-6 Heart Rate 1: 78 bpm Height: 5'8" SpO2: 96% Weight: 204 lbs 07/06/2015 Blood Pressure 1: 130/78 Code: 8480-6 BMI: 31.0 Code: 46708-0 Heart Rate 1: 80 bpm Height: 5'8" SpO2: 98% Weight: 204 lbs 03/29/2015 Blood Pressure 1: 132/82 Code: 8480-6 BMI: 29.6 Code: 08550-9 Heart Rate 1: 76 bpm Height: 5'8" SpO2: 96% Weight: 195 lbs 03/08/2015 Blood Pressure 1: 126/84 Code: 8480-6 BMI: 30.2 Code: 99571-6 Heart Rate 1: 101 bpm Height: 5'8" SpO2: 98% Weight: 198 lbs 8 oz 02/02/2015 Blood Pressure 1: 132/86 Code: 8480-6 Heart Rate 1: 86 bpm SpO2: 98% Temperature: 36.6 (C) / 97.8 (F) Weight: 198 lbs 09/22/2014 Blood Pressure 1: 128/80 Code: 8480-6 BMI: 29.3 Code: 37405-1 Heart Rate 1: 85 bpm Height: 5'8" SpO2: 98% Weight: 193 lbs Functional Status No Functional Status data History of Present Illness Symptom Name Status Result Effective Date Notes sinus congestion Location frontal sinuses 02/19/2018 None [...] Other allergic rhinitis[ICD10: J30.89] Sandra Parsons MD, [facility] CPT- 4: 13775 02/19/2018 [id number] EST. PATIENT, LEVEL III Diagnosis: Acute laryngopharyngitis[ICD10: J06.0] Diagnosis: Other allergic rhinitis[ICD10: J30.89] Sandra Parsons MD, [facility] CPT- 4: 63136 11/09/[id number]) [id number] EST. PATIENT, LEVEL IV Diagnosis: Essential (primary) hypertension[ICD10: I10] Diagnosis: Chronic atrial fibrillation[ICD10: I48.2] Steffany Parsons MD, [facility] CPT-4: 82984 10/22/2017 [id number] 83572 EST. PATIENT, LEVEL IV Diagnosis: Essential (primary) hypertension[ICD10: I10] Diagnosis: Chronic atrial fibrillation[ICD10: I48.2] Diagnosis: Cough[ICD10: R05] Steffany Parsons MD, [facility] CPT-4: 43437 07/23/2017 ([id number]) 43447 EST. PATIENT, LEVEL III Diagnosis: Cough[ICD10: R05] Diagnosis: Other allergic rhinitis[ICD10: J30.89] Diagnosis: Chronic obstructive pulmonary disease with (acute) exacerbation[ICD10: J44.1] Lucrecia Parsons MD, [facility] CPT-4: 67343 07/09/2017 ([id number]) 73575 EST. PATIENT, LEVEL III Diagnosis: Cough[ICD10: R05] Diagnosis: Other allergic rhinitis[ICD10: J30.89] Diagnosis: Chronic obstructive pulmonary disease with (acute) exacerbation[ICD10: J44.1] Lucrecia Parsons MD, [facility] CPT-4: 08845 06/29/2017 ([id number]) [id number] EST. PATIENT, LEVEL III Diagnosis: Essential (primary) hypertension[ICD10: I10] Diagnosis: Cough[ICD10: R05] Steffany Parsons MD, [facility] CPT-4: 99013 04/23/2017 ([id number]) 19571 EST. PATIENT, LEVEL IV Diagnosis: Hemoptysis[ICD10: R04.2] Diagnosis: Essential (primary) hypertension[ICD10: I10] Diagnosis: Chronic obstructive pulmonary disease with acute lower respiratory infection[ICD10: J44.0] Steffany Parsons MD [facility] CPT-4: 80069 04/10/2017 24301 EST. PATIENT, LEVEL III Diagnosis: Acute laryngopharyngitis[ICD10: J06.0] Diagnosis: Other allergic rhinitis[ICD10: J30.89] Sandra Parsons MD, [facility] CPT- 4: 56314 03/29/2017 ([id number]) 58047 EST. PATIENT, LEVEL III Diagnosis: Pneumonia due to Mycoplasma pneumoniae[ICD10: J15.7] Diagnosis: Cough[ICD10: R05] Diagnosis: Other chest pain[ICD10: R07.89] Steffany Parsons MD, [facility] CPT-4: 94437 02/06/2017 [id number] EST. PATIENT, LEVEL IV Diagnosis: Cough[ICD10: R05] Diagnosis: Shortness of breath[ICD10: R06.02] Diagnosis: Gastro-esophageal reflux disease without esophagitis[ICD10: K21.9] Sandra Parsons MD, [facility] CPT-4: 49597 11/06/2016 08763 EST. PATIENT, LEVEL IV Diagnosis: Other allergic rhinitis[ICD10: J30.89] Diagnosis: Acute bronchitis due to other specified organisms[ICD10: J20.8] Sandra Parsons MD, [facility] CPT-4: 06558 09/27/2016 ([id number]) 76765 EST. PATIENT, LEVEL IV Diagnosis: Essential (primary) hypertension[ICD10: I10] Diagnosis: Chronic atrial fibrillation[ICD10: I48.2] Diagnosis: Encounter for therapeutic drug level monitoring[ICD10: Z51.81] Steffany Parsons MD, [facility] CPT-4: 95318 03/21/2016 ([id number]) 87314 EST. 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 PATIENT, LEVEL III Diagnosis: Allergic rhinitis due to pollen[ICD10: J30.1] Diagnosis: Actinic keratosis[ICD10: L57.0] Lucrecia Parsons MD, [facility] CPT-4: 21117 10/14/2015 ([id number]) [id number] EST. PATIENT, LEVEL IV Diagnosis: Essential (primary) hypertension[ICD10: I10] Diagnosis: Chronic atrial fibrillation[ICD10: I48.2] Steffany Parsons MD, [facility] CPT-4: 73983 07/06/2015 [id number] EST. PATIENT, LEVEL III Diagnosis: Essential (primary) hypertension[ICD10: I10] Diagnosis: Chronic atrial fibrillation[ICD10: I48.2] Diagnosis: Shortness of breath[ICD10: R06.02] Diagnosis: Melena[ICD10: K92.1] Sandra Parsons MD, [facility] CPT-4: 51671 03/29/2015 ([id number]) [id number] EST. PATIENT, LEVEL IV Diagnosis: Essential (primary) hypertension[ICD10: I10] Diagnosis: Chronic atrial fibrillation[ICD10: I48.2] Diagnosis: Cough[ICD10: R05] Steffany Parsons MD, [facility] CPT-4: 35202 03/08/2015 ([id number]) [id number] EST. PATIENT, LEVEL III Diagnosis: Other seasonal allergic rhinitis[ICD10: J30.2] Diagnosis: Other lesions of oral mucosa[ICD10: K13.79] Lucrecia Parsons MD, [facility] CPT-4: 17709 02/02/2015 ([id number]) OFFICE VISIT, NEW - LEVEL 4 Diagnosis: ESSENTIAL HYPERTENSION[ICD9: 401.9] Diagnosis: HYPERLIPIDEMIA[ICD9: 272.4] Diagnosis: ACTINIC KERATOSIS[ICD9: 702.0] Steffany Parsons MD, [facility] CPT-4: 47289 09/22/2014 Plan of Care Planned Activity Notes Codes Status Date Patient Education: Patient Medication Summary Completed 02/26/2018 [...] allergy spray. 02/19/2018 Appointment: Sandra Tim WPtel: [address] [place], [place] [address] [place] (15 min) Moderate 02/19/2018 Patient Education: Patient [...] spray. 11/09/2017 Appointment: Sandra Tim WPtel: [phone] [facility] [place] (15 min) Moderate 11/09/2017 Patient Education: Patient [...] uncontrolled. 10/22/2017 Appointment: Steffany Parsons WPtel: [phone] [facility] [place] (15 min) Moderate 10/22/2017 Patient Education: Patient [...] spray) 07/23/2017 App[facility]ment[phone] ([facility] min) Moderate 07/23/2017 Patient Education: Patient [...] changes. 07/09/2017 Appointment: [phone] [place] (30 min) Complex 07/09/2017 Patient Education: Patient [...] acute changes. 06/29/2017 Appointment: Lucrecia Yeager WPtel: [phone] [place] (15 min) Moderate 06/29/2017 Patient Education: Patient Medication Summary Completed 06/29/2017 Appointment: Steffany Parsons WPtel: [address] [place], [place] [phone] [place] (15 min) Moderate 04/30/2017 Visit Plan: Hypertension [...] breathing treatments. 04/23/2017 Appointment: Steffany Parsons WPtel: [facility] (15 min) Moderate 04/23/2017 Patient Education: Patient Medication Summary Completed 04/23/2017 Visit Plan: Hemoptysis and COPD exacerbation - continue with antibiotics, rx for antifungal tablet and suspension. chest xray ordered, monitor symptoms. Pt to stop aspirin x 1 week, continue with eliquis. call if s ymptoms are not improving. rx for phenergan with codeine. 04/10/2017 Appointment: Steffany Parsons WPtel: [facility]4 [facility] [place] (15 min) Moderate 04/10/2017 Patient Education: [...] spray. 03/29/2017 Appointment: Sandra Tim WPtel: [phone] [facility] (15 min) Moderate 03/29/2017 Patient Education: [...] cough. 02/06/2017 Appointment: Steffany Parsons WPtel: [phone] [facility] (15 min) Moderate 02/06/2017 Patient Education: [...] improving. 11/06/2016 Appointment: Sandra Tim WPtel: [phone] [facility] (15 min) Moderate 11/06/2016 Patient [...] worsen. 09/27/2016 Appointment: Sandra Tim WPtel: [phone] [facility] (30 min) Complex 09/27/2016 Patient [...] uncontrolled. 03/21/2016 Appointment: Steffany Parsons WPtel: [phone] [facility] (15 min) Moderate 03/21/2016 Patient Education: Patient Medication Summary Completed 03/21/2016 Patient Education: Obesity Completed 03/21/2016 Visit Plan: Diarrhea-recent abx use-check stool for cdiff-increase probiotic to twice daily-bland diet advance as tolerated-call if symptoms do not resolve or if any worse. Patient verbalized understanding of plan. 02/01/2016 Appointment: Lucrecia Yeager WPtel: [phone] [phone] [place] (15 min) Moderate 02/01/2016 Patient Education: Patient Medication Summary Completed 02/01/2016 Patient Education: Obesity Completed 02/01/2016 Referral: Alexi Honeycutt [facility] Info faxed Completed 11/27/2015 Visit Plan: Hypertension [...] Summary Completed 11/23/2015 Appointment: Steffany Parsons WPtel: [facility]7 [place] [phone] (15 min) Moderate 11/15/2015 Visit Plan: Allergies [...] not heal 10/14/2015 Appointment: Lucrecia Yeager WPtel: [facility]9 [phone] (15 min) Moderate 10/14/2015 Patient Education: Patient [...] concerns. 07/20/2015 Appointment: Lucrecia Yeager WPtel: [phone] [phone] (30 min) Complex 07/20/2015 Patient Education: Patient [...] acute concerns. 07/06/2015 Appointment: [facility]el[phone] (15 min) Moderate 07/06/2015 Patient Education: Patient [...] - pt has an upcoming appointment with network support specialist to possibly have an ablation done. [...] Education: Hypertension Completed 03/08/2015 [facility] [facility] Completed 02/13/2015 Visit Plan: Allergies [...] 02/02/2015 Care Plan: Referral Order SNOMED-CT : [id number] Ordered 02/02/2015 Visit Plan: Hypertension - well [...] not improving. 09/22/2014 Appointment: Steffany Parsons WPtel: [address] [place], [place] [address] [place] (S) New Patient 09/22/2014 Patient Education: Patient Medication Summary Completed 09/22/2014 Patient Education: Hypertension Completed 09/22/2014 [facility] [place] Referral Initiated Instructions Comment . [...] - pt has an upcoming appointment with network support specialist to possibly have an ablation done. [...]
--- OUTSIDE RECORDS SUMMARY | 2018-08-31 19:23 | XMS REPORT | CCD ---
Author Author [facility] Organization [facility] Address [address] [place] [address] Phone Care Team Providers [employer] Pr[employer]er Name Role Phone PP Unavailable CCM Unavailable Summary Purpose Interface Exchange Insurance Providers Payer name Policy type / Coverage type Covered republican ID Effective Begin Date Effective End Date [facility] Commercial Insurance [id number] Unknown Unknown Family history Father Diagnosis Age At Onset Prostate Cancer Unknown Runs in the family Diagnosis Age At Onset Hypertension Unknown Mother Diagnosis Age At Onset No Family Disease Entered N/A Social History Social History Element Codes Description Effective Dates Marital status Unknown Mary 02/06/2017 Number of children Unknown 5 09/22/[address]: 3493462 Quit over 10 years ago 09/22/[address]: 056733841 Never drinks alcohol 09/22/2014 Allergies, Adverse Reactions, [...] ICD-9: 477.9 ICD-10: J30.1 Active 11/22/2015 Unknown Squamous cell carcinoma of [...] pollen ICD-9: 477.9 ICD-10: J30.1 11/22/2015 Active Squamous cell carcinoma of skin [...] Fill Instructions Keflex 500 mg capsule RxNorm: 521841 1 Capsule(s) PO TID 02/19/2018 02/25/2018 Active Klor-Con M20 mEq tablet,extended release RxNorm: 4022907 TAKE 1 TABLET EVERY MORNING 12/04/2017 No Stop Date Active prednisone 20 mg tablet RxNorm: 360585 2 Tablet(s) PO daily 11/16/2017 11/20/2017 Inactive START TOMORROW Zithromax Z-Mau 250 mg tablet RxNorm: 736423 1 Tablet(s) PO daily 11/16/2017 11/20/2017 Inactive Zithromax Z-Mau 250 mg tablet RxNorm: 695121 1 Tablet(s) PO daily 11/16/2017 11/15/2017 Inactive Keflex 500 mg capsule RxNorm: 656734 1 Capsule(s) PO TID 11/09/2017 11/15/2017 Inactive Zithromax 250 mg tablet RxNorm: 701792 [address] day and 1 tab po on day 2-5 Tablet(s) PO 08/30/2017 09/03/2017 Inactive zpack x 1 doxycycline hyclate 100 mg tablet RxNorm: 913920 1 Tablet(s) PO BID 07/09/2017 07/15/2017 Inactive prednisone 20 mg tablet RxNorm: 954283 2 Tablet(s) PO daily 06/29/2017 07/01/2017 Inactive START TOMORROW Kenalog 40 mg/mL suspension for injection RxNorm: 3654263 Milliliter(s) Inj 06/29/2017 06/29/2017 Inactive Lasix 40 mg tablet RxNorm: 099558 TAKE 1 TABLET DAILY 04/24/2017 No Stop Date Active Diflucan 150 mg tablet RxNorm: 725518 1 Tablet(s) PO daily 04/10/2017 04/16/2017 Inactive Bactrim DS 800 mg-160 mg tablet RxNorm: 670185 1 Tablet(s) PO BID 04/10/2017 04/16/2017 Inactive nystatin 100,000 unit/mL oral suspension RxNorm: 882121 5 Milliliter(s) PO QID 04/10/2017 04/19/2017 Inactive cefdinir 300 mg capsule RxNorm: 672843 1 Capsule(s) PO BID 03/28/2017 04/06/2017 Inactive cefdinir 300 mg capsule RxNorm: 570245 1 Capsule(s) PO BID 02/06/2017 02/15/2017 Inactive ceftriaxone 500 mg solution for injection RxNorm: 3988741 Inj 02/06/2017 02/06/2017 Inactive omeprazole 20 mg tablet,delayed release RxNorm: 207105 1 Tablet(s) PO daily 11/06/2016 12/05/2016 Inactive Phenergan with Codeine Syrup RxNorm: 5 Milliliter(s) PO QID as needed 10/30/2016 No Stop Date Active Tessalon Perles 100 mg capsule RxNorm: 332469 1-2 Capsule(s) PO TID as needed cough 10/30/2016 11/08/2016 Inactive Klor-Con M20 mEq tablet,extended release RxNorm: 1841166 TAKE 1 TABLET EVERY MORNING 10/26/2016 12/03/2017 Inactive ceftriaxone 500 mg solution for injection RxNorm: 1647568 1 Milliliter(s) Inj 09/27/2016 09/27/2016 Inactive Phenergan with Codeine Syrup RxNorm: 5 Milliliter(s) PO QID as needed 09/27/2016 10/29/2016 Inactive Tessalon Perles 100 mg capsule RxNorm: 877074 1-2 Capsule(s) PO TID as needed cough 09/27/2016 09/29/2016 Inactive Kenalog 40 mg/mL suspension for injection RxNorm: 4099954 1 Milliliter(s) Inj 09/27/2016 09/27/2016 Inactive Flagyl 500 mg tablet RxNorm: 605393 1 Tablet(s) PO TID 2016 08/05/2016 Inactive Lasix 40 mg tablet RxNorm: 051818 TAKE 1 TABLET DAILY 07/26/2016 04/23/2017 Inactive Zithromax 250 mg tablet RxNorm: 106162 [address] day and 1 tab po on day 2-5 Tablet(s) PO 03/28/2016 03/27/2016 Inactive zpack x 1 Zithromax 250 mg tablet RxNorm: 467741 [address] day and 1 tab po on day 2-5 Tablet(s) PO 03/28/2016 04/01/2016 Inactive zpack x 1 Flagyl 500 mg tablet RxNorm: 001669 1 Tablet(s) PO TID 02/07/2016 02/06/2016 Inactive Flagyl 500 mg tablet RxNorm: 382172 1 Tablet(s) PO TID 02/07/2016 02/16/2016 Inactive Zyrtec-D 5 mg-120 mg tablet,extended release RxNorm: 6241127 1 Tablet(s) PO daily as needed allergies 11/23/2015 No Stop Date Active Imodium A-D 2 mg tablet RxNorm: 182770 1/2 Tablet(s) PO daily 11/23/2015 No Stop Date Active Mucinex 600 mg tablet, extended release RxNorm: 301826 1 Tablet(s) PO BID as needed 11/23/2015 01/21/2016 Inactive Lasix 40 mg tablet RxNorm: 893472 TAKE 1 TABLET DAILY 11/01/2015 07/25/2016 Inactive Klor-Con M20 mEq tablet,extended release RxNorm: 2642865 TAKE 1 TABLET EVERY MORNING 11/01/2015 10/25/2016 Inactive Flonase Allergy Relief 50 mcg/actuation nasal spray,suspension RxNorm: 2 Bliss NASAL daily 07/20/2015 No Stop Date Active Kenalog 40 mg/mL suspension for injection RxNorm: 0943137 Milliliter(s) Inj 02/02/2015 02/02/2015 Inactive Crestor 5 mg tablet RxNorm: 327143 1/2 Tablet(s) PO daily 10/05/2014 09/29/2015 Inactive metoprolol tartrate 100 mg tablet RxNorm: 916418 1 Tablet(s) PO BID 10/05/2014 12/28/2015 Inactive Plavix 75 mg tablet RxNorm: 830766 1 Tablet(s) PO daily 10/05/2014 03/07/2015 Inactive Klor-Con M20 mEq tablet,extended release RxNorm: 624851 1 Tablet(s) PO QAM 10/05/2014 10/31/2015 Inactive Lasix 40 mg tablet RxNorm: 837743 1 Tablet(s) PO daily 10/05/2014 10/31/2015 Inactive Efudex 5 % topical cream RxNorm: 109438 1 Application TOP BID x 2 weeks, allow healing x 1 -2 weeks, then reuse 10/05/2014 07/05/2015 Inactive Pradaxa 150 mg capsule RxNorm: 0999731 1 Capsule(s) PO BID 10/05/2014 04/09/2017 Inactive amlodipine 10 mg tablet RxNorm: 053770 1/2 Tablet(s) PO QAM 10/05/2014 07/05/2015 Inactive Efudex 5 % topical cream RxNorm: 399165 1 Application TOP BID x 2 weeks, allow healing x 1 -2 weeks, then reuse 09/22/2014 10/04/2014 Inactive Klor-Con M20 mEq tablet,extended release RxNorm: 405078 1 Tablet(s) PO QAM 09/22/2014 10/04/2014 Inactive Lasix 40 mg tablet RxNorm: 776888 1 Tablet(s) PO daily 09/22/2014 10/04/2014 Inactive Cartia XT 180 mg capsule,extended release RxNorm: 469679 2 Capsule(s) PO daily No Start Date Active cetirizine 10 mg tablet RxNorm: 8768370 1 Tablet(s) PO daily at lunch No Start Date Active Canasa 1,000 mg rectal suppository RxNorm: 467349 [address] seymour No Start Date Active Lialda 1.2 gram tablet,delayed release RxNorm: 249314 1 Tablet(s) PO QHS -Prescried by Dr. Seymour No Start Date Active Centrum Silver oral RxNorm: 14915 oral No Start Date Active Eliquis 5 mg tablet RxNorm: 8340457 1 Tablet(s) PO BID Dr Avila No Start Date Active aspirin 81 mg capsule,delayed release RxNorm: 311974 1 Capsule(s) PO daily No Start Date Active losartan 25 mg tablet RxNorm: 258109 1 Tablet(s) PO QPM at supper No Start Date Active digoxin 250 mcg tablet RxNorm: 037585 1 Tablet(s) PO daily No Start Date Active Vitamin D3 5,000 unit tablet RxNorm: 501896 1 Tablet(s) PO BID No Start Date Active Probiotic oral RxNorm: 6205 oral No Start Date Active Glucosamine Chondroit Complx Advan oral RxNorm: oral No Start Date Active Plavix 75 mg tablet RxNorm: 852739 1 Tablet(s) PO daily No Start Date 10/04/2014 Inactive Klor-Con M20 mEq tablet,extended release RxNorm: 250652 1 Tablet(s) PO QAM No Start Date 09/21/2014 Inactive Imodium oral RxNorm: oral No Start Date 11/22/2015 Inactive Lasix 40 mg tablet RxNorm: 1 Tablet(s) PO daily No Start Date 09/21/2014 Inactive amlodipine 10 mg tablet RxNorm: 001438 1/2 Tablet(s) PO QAM No Start Date 10/04/2014 Inactive Crestor 5 mg tablet RxNorm: 825481 1/2 Tablet(s) PO daily No Start Date 10/04/2014 Inactive Flonase Allergy Relief 50 mcg/actuation nasal spray,suspension RxNorm: 1 Bliss NASAL daily No Start Date 07/19/2015 Inactive metoprolol tartrate 100 mg tablet RxNorm: 581390 1 Tablet(s) PO BID No Start Date 10/04/2014 Inactive Probiotic 4X oral RxNorm: 0696020 oral No Start Date 07/06/2015 Inactive Pradaxa 150 mg capsule RxNorm: 2267148 1 Capsule(s) PO BID No Start Date 10/04/2014 Inactive Medication Administered Medication Codes Instructions Start Date Status Kenalog 40 mg/mL suspension for injection RxNorm: 7481877 Milliliter 06/29/2017 No longer Active ceftriaxone 500 mg solution for injection RxNorm: 7470823 02/06/2017 No longer Active Kenalog 40 mg/mL suspension for injection RxNorm: 2128939 1Milliliter 09/27/2016 No longer Active ceftriaxone 500 mg solution for injection RxNorm: 1875989 1Milliliter 09/27/2016 No longer Active Kenalog 40 mg/mL suspension for injection RxNorm: 6583352 Milliliter 02/02/2015 No longer Active Immunizations Vaccine [...] 31.4 pg 10/23/2017 Cbc With Differential Ord2 Mcculloch% 8.5 % 10/23/2017 Cbc With Differential Ord2 [...] 2.73 K/ul 10/23/2017 Cbc With Differential Ord2 Mcculloch ABS# 0.9 K/ul 10/23/2017 Cbc With Differential Ord2 Eos ABS# 0.6 K/ul 10/23/2017 Cbc With Differential Ord2 Baso ABS# 0.0 K/ul 10/23/2017 Digoxin Ord9 DIGOXIN 1.0 NG/ML 10/23/2017 Lipid Ord30 CHOL 108 mg/dL 10/23/2017 Lipid Ord30 HDL 39.0 mg/dl 10/23/2017 Lipid Ord30 TRIG 175 mg/dL 10/23/2017 Lipid Ord30 LDL 34 mg/dL 10/23/2017 Lipid Ord30 C/HDL 2.8 Ratio 10/23/2017 Comp Metabolic Oax837 NA 140 mEq/L 10/23/2017 Comp Metabolic Nqx971 K 4.1 mEq/L 10/23/2017 Comp Metabolic Ept040 CL 102 mEq/L 10/23/2017 Comp Metabolic Kug110 CO2 30.0 mEq/L 10/23/2017 Comp Metabolic Our981 ANION GAP 12 10/23/2017 Comp Metabolic Swg896 GLUCOSE 124 mg/dL 10/23/2017 Comp Metabolic Hub998 Creat 1.1 mg/dL 10/23/2017 Comp Metabolic Ldy248 eGFR 71 ml/min/1.73m2 10/23/2017 Comp Metabolic Bhk243 BUN 11 mg/dL 10/23/2017 Comp Metabolic Zcw654 B/C Ratio 10.2 Ratio 10/23/2017 Comp Metabolic Mrn030 CALCIUM 9.3 mg/dL 10/23/2017 Comp Metabolic Itu905 ALK PHOS 72 U/L 10/23/2017 Comp Metabolic Wjf229 AST(SGOT) 21 U/L 10/23/2017 Comp Metabolic Qcu040 ALT(SGPT) 17 U/L 10/23/2017 Comp Metabolic Ypp882 BILI T 0.8 mg/dL 10/23/2017 Comp Metabolic Dhz633 ALBUMIN 4.3 g/dL 10/23/2017 Comp Metabolic Yer165 TPRO 7.4 g/dL 10/23/2017 Comp Metabolic Yhv545 GLOB 3.1 g/dL 10/23/2017 Comp Metabolic Jxr048 A/G Ratio 1.4 Ratio 10/23/2017 Comp Metabolic Rby264 Osmo 280 mOsmo 10/23/2017 Tsh Ord6 TSH (3rd IS) 3.37 uIU/mL 10/23/2017 Test(s) Not Perfromed [id number] Test(s) Not Performed Test(s) Not Performed. See Below: 10/23/2017 Test(s) Not Perfromed [id number] TEST NAME PSA 10/23/2017 Test(s) Not Perfromed [id number] Rejection Reason PSA Performed yearly at Dr. Stone's Office 10/23/2017 Test(s) Not Perfromed [id number] COMMENT N/A 10/23/2017 Test(s) Not Perfromed [id number] Medicare Interviewer Gian Johnson 10/23/2017 Comp Metabolic Kxk450 NA 137 mEq/L 03/21/2016 Comp Metabolic Iej748 K 4.6 mEq/L 03/21/2016 Comp Metabolic Twa247 CL 101 mEq/L 03/21/2016 Comp Metabolic Wwk994 CO2 31.0 mEq/L 03/21/2016 Comp Metabolic Lql252 ANION GAP 10 03/21/2016 Comp Metabolic Vah553 GLUCOSE 106 mg/dL 03/21/2016 Comp Metabolic Abj132 Creat 1.1 mg/dL 03/21/2016 Comp Metabolic Ocu677 eGFR 69 ml/min/1.73m2 03/21/2016 Comp Metabolic Lid686 BUN 11 mg/dL 03/21/2016 Comp Metabolic Zgs342 B/C Ratio 9.9 Ratio 03/21/2016 Comp Metabolic Flv827 CALCIUM 9.5 mg/dL 03/21/2016 Comp Metabolic Pax224 ALK PHOS 88 U/L 03/21/2016 Comp Metabolic Epo474 AST(SGOT) 21 U/L 03/21/2016 Comp Metabolic Mqn858 ALT(SGPT) 15 U/L 03/21/2016 Comp Metabolic Lkn379 BILI T 0.7 mg/dL 03/21/2016 Comp Metabolic Dxu119 ALBUMIN 4.2 g/dL 03/21/2016 Comp Metabolic Vcn466 TPRO 7.9 g/dL 03/21/2016 Comp Metabolic Xfg874 GLOB 3.7 g/dL 03/21/2016 Comp Metabolic Xju140 A/G Ratio 1.1 Ratio 03/21/2016 Comp Metabolic Gor456 Osmo 274 mOsmo 03/21/2016 Lipid Ord30 CHOL [...] 43.4 % 03/21/2016 Cbc With Differential Ord2 MCV 92.9 fl 03/21/2016 Cbc With Differential Ord2 Lymph% 20.9 % 03/21/2016 Cbc With Differential Ord2 MCH 31.3 pg 03/21/2016 Cbc With Differential Ord2 Mcculloch% 10.3 % 03/21/2016 Cbc With Differential Ord2 [...] 2.51 K/ul 03/21/2016 Cbc With Differential Ord2 Mcculloch ABS# 1.2 K/ul 03/21/2016 Cbc With Differential Ord2 Eos ABS# 0.7 K/ul 03/21/2016 Cbc With Differential Ord2 Baso ABS# 0.0 K/ul 03/21/2016 Clostridium Diff Tox A/B Gfl435 Cdiff Negative 02/01/2016 Culture Mrsa [id number] MRSA CULTURE SEE NOTES 04/09/2015 Digoxin Ord9 [...] 03/30/2015 Digoxin Ord9 DIGOXIN 1.0 NG/ML 03/11/2015 Comp Metabolic Qtc003 NA 142 mEq/L 03/11/2015 Comp Metabolic Mbf361 K 4.4 mEq/L 03/11/2015 Comp Metabolic Uvc978 CL 107 mEq/L 03/11/2015 Comp Metabolic Hzw895 CO2 27.0 mEq/L 03/11/2015 Comp Metabolic Suf896 ANION GAP 12 03/11/2015 Comp Metabolic Nmm862 GLUCOSE 106 mg/dL 03/11/2015 Comp Metabolic Ruf350 Creat 1.1 mg/dL 03/11/2015 Comp Metabolic Eud439 eGFR 68 ml/min/1.73m2 03/11/2015 Comp Metabolic Zjy569 BUN 16 mg/dL 03/11/2015 Comp Metabolic Gbr430 B/C Ratio 14.3 Ratio 03/11/2015 Comp Metabolic Kke969 CALCIUM 9.5 mg/dL 03/11/2015 Comp Metabolic Umj824 ALK PHOS 82 U/L 03/11/2015 Comp Metabolic Mfg801 AST(SGOT) 20 U/L 03/11/2015 Comp Metabolic Csa449 ALT(SGPT) 17 U/L 03/11/2015 Comp Metabolic Nug472 BILI T 0.4 mg/dL 03/11/2015 Comp Metabolic Dby382 ALBUMIN 4.0 g/dL 03/11/2015 Comp Metabolic Dsw375 TPRO 6.9 g/dL 03/11/2015 Comp Metabolic Jcb238 GLOB 2.9 g/dL 03/11/2015 Comp Metabolic Plt020 A/G Ratio 1.4 Ratio 03/11/2015 Comp Metabolic Tpw938 Osmo 285 mOsmo 03/11/2015 Cbc With Differential Ord2 WBC 8.8 [...] With Differential Ord2 RDW 15.3 % 03/11/2015 Magnesium Ord90 Mag 2.2 mg/dL 03/11/2015 Tsh Ord6 hTSH II 2.39 uIU/mL 03/11/2015 Metabolic Ord15 NA 137 mEq/L 12/24/2014 [...] rhythm 11/09/2017 None Full Exam - General [facility] Constitutional general appearance Development: well developed 10/22/2017 [...] inspection of skin Location: face 10/22/2017 right latter-day, forehead, left latter-day - irrirated actinic keratosis Full Exam - [...] inspection of skin Location: face 03/21/2016 right latter-day, forehead, left latter-day - irrirated actinic keratosis Full Exam - [...] inspection of skin Location: face 11/23/2015 right latter-day, left latter-day - irrirated actinic keratosis Full Exam - [...] inspection of skin Location: face 07/06/2015 right latter-day, forehead, left latter-day - irrirated actinic keratosis Full Exam - [...] on face, scalp Procedures Procedure Codes Date PPPS, SUBSEQ VISIT CPT- 4: G0439 2017 TRIAMCINOLONE ACET INJ NOS CPT-4: J3301 06/29/2017 THER/PROPH/DIAG INJ SC/IM CPT-4: 76575 02/06/2017 ROCEPHIN, PER 250 MG CPT- 4: J0696 02/06/2017 ROCEPHIN, PER 250 MG CPT- 4: J0696 09/27/2016 TRIAMCINOLONE ACET INJ NOS CPT-4: J3301 09/27/2016 THER/PROPH/DIAG INJ SC/IM CPT-4: 32316 09/27/2016 DESTRUCT PREMALG LESION CPT-4: 73752 10/14/2015 DESTRUCT PREMALG LESION CPT-4: 21064 07/20/2015 DESTRUCT PREMALG LESION CPT-4: 66379 07/06/2015 DESTRUCT PREMALG LES 2-14 CPT-4: 04190 07/06/2015 TRIAMCINOLONE ACET INJ NOS CPT-4: J3301 02/02/2015 Vital Signs Date Vital 02/19/2018 Blood Pressure 1: 128/76 Code: 8480-6 BMI: 30.0 Code: 96472-5 Heart Rate 1: 66 bpm Height: 5'8" SpO2: 97% Weight: 197 lbs 11/09/2017 Blood Pressure 1: 130/74 Code: 8480-6 BMI: 29.3 Code: 44945-3 Heart Rate 1: 81 bpm Height: 5'8" SpO2: 98% Temperature: 36.6 (C) / 97.9 (F) Weight: 193 lbs 10/22/2017 Blood Pressure 1: 132/82 Code: 8480-6 BMI: 29.0 Code: 56940-5 Heart Rate 1: 80 bpm Height: 5'8" SpO2: 98% Weight: 191 lbs 2017 Blood Pressure 1: 142/68 Code: 8480-6 BMI: 28.7 Code: 51412-2 Heart Rate 1: 62 bpm Height: 5'8" SpO2: 98% Waist Measure (cm): 102 cm Weight: 189 lbs 07/23/2017 Blood Pressure 1: 138/84 Code: 8480-6 BMI: 29.0 Code: 70175-7 Heart Rate 1: 69 bpm Height: 5'8" SpO2: 98% Weight: 191 lbs 07/09/2017 Blood Pressure 1: 120/82 Code: 8480-6 BMI: 29.2 Code: 79248-3 Heart Rate 1: 80 bpm Height: 5'8" SpO2: 98% Weight: 192 lbs 06/29/2017 Blood Pressure 1: 140/82 Code: 8480-6 BMI: 29.5 Code: 96157-3 Heart Rate 1: 83 bpm Height: 5'8" SpO2: 98% Weight: 194 lbs 04/23/2017 Blood Pressure 1: 132/74 Code: 8480-6 BMI: 28.4 Code: 73334-6 Heart Rate 1: 78 bpm Height: 5'8" SpO2: 97% Weight: 187 lbs 04/10/2017 Blood Pressure 1: 126/68 Code: 8480-6 BMI: 29.5 Code: 08445-1 Heart Rate 1: 68 bpm Height: 5'8" SpO2: 92% Temperature: 37.5 (C) / 99.5 (F) Weight: 194 lbs 03/29/2017 Blood Pressure 1: 116/76 Code: 8480-6 BMI: 29.6 Code: 92684-6 Heart Rate 1: 61 bpm Height: 5'8" SpO2: 98% Weight: 195 lbs 02/06/2017 Blood Pressure 1: 130/74 Code: 8480-6 BMI: 30.4 Code: 56796-8 Heart Rate 1: 71 bpm Height: 5'8" SpO2: 98% Weight: 200 lbs 11/06/2016 Blood Pressure 1: 140/74 Code: 8480-6 BMI: 29.5 Code: 48114-7 Heart Rate 1: 76 bpm Height: 5'8" SpO2: 96% Weight: 194 lbs 09/27/2016 Blood Pressure 1: 138/78 Code: 8480-6 BMI: 29.6 Code: 78575-4 Heart Rate 1: 68 bpm Height: 5'8" SpO2: 97% Weight: 195 lbs 03/21/2016 Blood Pressure 1: 148/82 Code: 8480-6 BMI: 30.6 Code: 23717-0 Heart Rate 1: 67 bpm Height: 5'8" SpO2: 98% Weight: 201 lbs 02/01/2016 Blood Pressure 1: 128/86 Code: 8480-6 BMI: 30.3 Code: 72704-1 Heart Rate 1: 84 bpm Height: 5'8" SpO2: 96% Weight: 199 lbs 11/23/2015 Blood Pressure 1: 132/76 Code: 8480-6 BMI: 30.4 Code: 17851-2 Heart Rate 1: 81 bpm Height: 5'8" SpO2: 98% Weight: 200 lbs 10/14/2015 Blood Pressure 1: 120/80 Code: 8480-6 BMI: 30.4 Code: 66569-8 Heart Rate 1: 87 bpm Height: 5'8" SpO2: 97% Weight: 200 lbs 07/20/2015 Blood Pressure 1: 132/84 Code: 8480-6 BMI: 31.0 Code: 55283-5 Heart Rate 1: 78 bpm Height: 5'8" SpO2: 96% Weight: 204 lbs 07/06/2015 Blood Pressure 1: 130/78 Code: 8480-6 BMI: 31.0 Code: 57410-7 Heart Rate 1: 80 bpm Height: 5'8" SpO2: 98% Weight: 204 lbs 03/29/2015 Blood Pressure 1: 132/82 Code: 8480-6 BMI: 29.6 Code: 03744-2 Heart Rate 1: 76 bpm Height: 5'8" SpO2: 96% Weight: 195 lbs 03/08/2015 Blood Pressure 1: 126/84 Code: 8480-6 BMI: 30.2 Code: 30519-2 Heart Rate 1: 101 bpm Height: 5'8" SpO2: 98% Weight: 198 lbs 8 oz 02/02/2015 Blood Pressure 1: 132/86 Code: 8480-6 Heart Rate 1: 86 bpm SpO2: 98% Temperature: 36.6 (C) / 97.8 (F) Weight: 198 lbs 09/22/2014 Blood Pressure 1: 128/80 Code: 8480-6 BMI: 29.3 Code: 65703-6 Heart Rate 1: 85 bpm Height: 5'8" [...] data Encounters Encounter Performer Location Codes Date 28616 EST. PATIENT, LEVEL IV Diagnosis: Other acute sinusitis[ICD10: J01.80] Diagnosis: Other allergic rhinitis[ICD10: J30.89] Sandra Parsons MD, [facility] CPT- 4: 01496 02/19/2018 05076 EST. PATIENT, LEVEL III Diagnosis: Acute laryngopharyngitis[ICD10: J06.0] Diagnosis: Other allergic rhinitis[ICD10: J30.89] Sandra Parsons MD, [facility] CPT- 4: 90705 11/09/[id number]) 05935 EST. PATIENT, LEVEL IV Diagnosis: Essential (primary) hypertension[ICD10: I10] Diagnosis: Chronic atrial fibrillation[ICD10: I48.2] Steffany Parsons MD, [facility] CPT-4: 91010 10/22/[id number]) 89748 EST. PATIENT, LEVEL IV Diagnosis: Essential (primary) hypertension[ICD10: I10] Diagnosis: Chronic atrial fibrillation[ICD10: I48.2] Diagnosis: Cough[ICD10: R05] Steffany Parsons MD, [facility] CPT-4: 66588 07/23/2017 [id number] 70015 EST. PATIENT, LEVEL III Diagnosis: Cough[ICD10: R05] Diagnosis: Other allergic rhinitis[ICD10: J30.89] Diagnosis: Chronic obstructive pulmonary disease with (acute) exacerbation[ICD10: J44.1] Lucrecia Parsons MD, [facility] CPT-4: 49823 07/09/2017 ([id number]) 50944 EST. PATIENT, LEVEL III Diagnosis: Cough[ICD10: R05] Diagnosis: Other allergic rhinitis[ICD10: J30.89] Diagnosis: Chronic obstructive pulmonary disease with (acute) exacerbation[ICD10: J44.1] Lucrecia Parsons MD, [facility] CPT-4: 13427 06/29/2017 ([id number]) 11849 EST. PATIENT, LEVEL III Diagnosis: Essential (primary) hypertension[ICD10: I10] Diagnosis: Cough[ICD10: R05] Steffany Parsons MD, [facility] CPT-4: 39545 04/23/2017 ([id number]) 96394 EST. PATIENT, LEVEL IV Diagnosis: Hemoptysis[ICD10: R04.2] Diagnosis: Essential (primary) hypertension[ICD10: I10] Diagnosis: Chronic obstructive pulmonary disease with acute lower respiratory infection[ICD10: J44.0] Steffany Parsons MD, [facility] CPT-4: 11884 04/10/2017 64471 EST. PATIENT, LEVEL III Diagnosis: Acute laryngopharyngitis[ICD10: J06.0] Diagnosis: Other allergic rhinitis[ICD10: J30.89] Sandra Parsons MD, [facility] CPT- 4: 35485 03/29/2017 ([id number]) 08949 EST. PATIENT, LEVEL III Diagnosis: Pneumonia due to Mycoplasma pneumoniae[ICD10: J15.7] Diagnosis: Cough[ICD10: R05] Diagnosis: Other chest pain[ICD10: R07.89] Steffany Parsons MD, [facility] CPT-4: 19745 02/06/2017 59067 EST. PATIENT, LEVEL IV Diagnosis: Cough[ICD10: R05] Diagnosis: Shortness of breath[ICD10: R06.02] Diagnosis: Gastro-esophageal reflux disease without esophagitis[ICD10: K21.9] Sandra Parsons MD, [facility] CPT-4: 78531 11/06/2016 46321 EST. PATIENT, LEVEL IV Diagnosis: Other allergic rhinitis[ICD10: J30.89] Diagnosis: Acute bronchitis due to other specified organisms[ICD10: J20.8] Sandra Parsons MD, [facility] CPT-4: 56405 09/27/2016 [id number]) 51584 EST. PATIENT, LEVEL IV Diagnosis: Essential (primary) hypertension[ICD10: I10] Diagnosis: Chronic atrial fibrillation[ICD10: I48.2] Diagnosis: Encounter for therapeutic drug level monitoring[ICD10: Z51.81] Steffany Parsons MD, [facility] CPT-4: 94102 03/21/2016 ([id number]) 20894 EST. 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 CPT- 4: 48673 02/01/2016 ([id number]) 65635 EST. 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 CPT-4: 01343 11/23/2015 ([id number]) 01594 EST. PATIENT, LEVEL III Diagnosis: Allergic rhinitis due to pollen[ICD10: J30.1] Diagnosis: Actinic keratosis[ICD10: L57.0] Lucrecia Parsons MD, [facility] CPT-4: 92253 10/14/2015 ([id number]) 92110 EST. PATIENT, LEVEL IV Diagnosis: Essential (primary) hypertension[ICD10: I10] Diagnosis: Chronic atrial fibrillation[ICD10: I48.2] Steffany Parsons MD, [facility] CPT-4: 52449 07/06/2015 23059 EST. PATIENT, LEVEL III Diagnosis: Essential (primary) hypertension[ICD10: I10] Diagnosis: Chronic atrial fibrillation[ICD10: I48.2] Diagnosis: Shortness of breath[ICD10: R06.02] Diagnosis: Melena[ICD10: K92.1] Sandra Parsons MD, [facility] CPT-4: 09987 03/29/2015 ([id number]) 48414 EST. PATIENT, LEVEL IV Diagnosis: Essential (primary) hypertension[ICD10: I10] Diagnosis: Chronic atrial fibrillation[ICD10: I48.2] Diagnosis: Cough[ICD10: R05] Steffany Parsons MD, [facility] CPT-4: 84074 03/08/2015 ([id number]) 52100 EST. PATIENT, LEVEL III Diagnosis: Other seasonal allergic rhinitis[ICD10: J30.2] Diagnosis: Other lesions of oral mucosa[ICD10: K13.79] Lucrecia Parsons MD, [facility] CPT-4: 03410 02/02/2015 ([id number]) OFFICE VISIT, NEW - LEVEL 4 Diagnosis: ESSENTIAL HYPERTENSION[ICD9: 401.9] Diagnosis: HYPERLIPIDEMIA[ICD9: 272.4] Diagnosis: ACTINIC KERATOSIS[ICD9: 702.0] Steffany Parsons MD, [facility] CPT-4: 26510 09/22/2014 Plan of Care Planned Activity Notes [...] in the nasal steroid allergy spray. 02/19/2018 Patient Education: Patient Medication Summary Completed [...] spray. 11/09/2017 Appointment: Sandra Tim WPtel: [phone] [phone] (15 min) Moderate 11/09/2017 Patient Education: [...] becoming uncontrolled. 10/22/2017 [facility]ment[phone] (15 min) Moderate 10/22/2017 Patient Education: Patient [...] spray) 07/23/2017 App[facility]ment[phone] (15 min) Moderate 07/23/2017 Patient Education: Patient [...] changes. 07/09/2017 Appointment: Lucrecia Yeager WPtel: [phone] [phone] (30 min) Complex 07/09/2017 Patient Education: [...] changes. 06/29/2017 Appointment: Lucrecia Yeager WPtel: [phone] [phone] [place] (15 min) Moderate 06/29/2017 Patient Education: Patient Medication Summary Completed 06/29/2017 Appointment: Steffany Parsons WPtel: [address] [place], [place] [id number] (15 min) Moderate 04/30/2017 Visit Plan: Hypertension [...] breathing treatments. 04/23/2017 Appointment: Steffany Parsons WPtel: [address] [place], [place] [id number] (15 min) Moderate 04/23/2017 Patient Education: Patient Medication Summary Completed 04/23/2017 Visit Plan: Hemoptysis and COPD exacerbation - continue with antibiotics, rx for antifungal tablet and suspension. chest xray ordered, monitor symptoms. Pt to stop aspirin x 1 week, continue with eliquis. call if s ymptoms are not improving. rx for phenergan with codeine. 04/10/2017 Appointment: Steffany Parsons WPtel: [address] [place], [place] [phone] (15 min) Moderate 04/10/2017 Patient Education: [...] allergy spray. 03/29/2017 Appointment: Sandra Tim WPtel: [facility] [place] [facility] [place] [facility] [place] (15 min) Moderate 03/29/2017 Patient Education: Patient Medication Summary Completed 03/29/2017 Visit Plan: Pneumonia - Pt has been diagnosed with pneumonia by physical exam. A chest xray has been ordered as have antibiotics. The pt is aware of the diagnosis and the need for acute treatment of this illness. Cough - rx for promethazine/codeine syrup for cough. 02/06/2017 Appointment: Steffany Parsons WPtel: [phone] [phone] (15 min) Moderate 02/06/2017 Patient Education: Patient [...] improving. 11/06/2016 Appointment: Sandra Tim WPtel: [phone] [facility] (15 min) Moderate 11/06/2016 Patient Education: [...] worsen. 09/27/2016 [phone] (30 min) Complex 09/27/2016 Patient [...] becoming uncontrolled. 03/21/2016 [phone] (15 min) Moderate 03/21/2016 Patient Education: Patient Medication Summary Completed 03/21/2016 Patient Education: Obesity Completed 03/21/2016 Visit Plan: Diarrhea-recent abx use-check stool for cdiff-increase probiotic to twice daily-bland diet advance as tolerated-call if symptoms do not resolve or if any worse. Patient verbalized understanding of plan. 02/01/2016 Appointment: Lucrecia Yeager WPtel: [facility] [place] [facility] [place] [phone] (15 min) Moderate 02/01/2016 Patient Education: Patient Medication Summary Completed 02/01/2016 Patient Education: Obesity Completed 02/01/2016 [facility] Info faxed Completed 11/27/2015 Visit Plan: Hypertension [...] Summary Completed 11/23/2015 Appointment: Steffany Parsons WPtel: [facility] [place] [facility] [place] [facility] (15 min) Moderate 11/15/2015 Visit Plan: [...] not heal 10/14/2015 Appointment: Lucrecia Yeager WPtel: [facility] [place] [facility] [place] [phone] (15 min) Moderate 10/14/2015 Patient Education: [...] acute concerns. 07/20/2015 Appointment: Lucrecia Yeager WPtel: [facility] [place] [facility] [place] [phone] (30 min) Complex 07/20/2015 Patient Education: [...] acute concerns. 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 [...] Education: Hypertension Completed 03/08/2015 [facility] Referral Completed 02/13/2015 Visit Plan: Allergies - [...] 02/02/2015 Care Plan: Referral Order SNOMED-CT : [id number] Ordered 02/02/2015 Visit Plan: Hypertension - well [...] not improving. 09/22/2014 Appointment: Steffany Parsons WPtel: [address] [place], [place] [address] [place] ([place]) New Patient 09/22/2014 Patient Education: Patient Medication Summary Completed 09/22/2014 Patient Education: Hypertension Completed 09/22/2014 [facility] Referral Initiated Instructions Comment . 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 Bloody stool - pt states that he had bright red blood in his stool, states he thinks it is from straining to go - will check H&H . Sinusitis - Pt has acute infection [...] of breath - resolved finish breathing treatments. Mucinex - take twice daily with 16 [...] keep appt with Dr. Avila - . Allergies - chronic - recommended pt [...] improved, or if symptoms acutely worsen. . URI - Pt advised to increase [...] left ear lesion does not heal . Cough, shortness of breath - ongoing [...] any worse. Patient verbalized understanding of plan. increase the flonase to twice daily use [...]
--- OUTSIDE RECORDS SUMMARY | 2018-08-31 19:26 | XMS REPORT | CCD ---
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 Commercial Insurance [id number] Unknown Unknown Family history Father Diagnosis Age At Onset Prostate Cancer Unknown Runs in the family Diagnosis Age At Onset Hypertension Unknown Mother Diagnosis Age At Onset No Family Disease Entered N/A Social History Social History Element Codes Description Effective Dates Marital status Unknown Mary 02/06/2017 Number of children Unknown 5 09/22/[address]: 9224384 Quit over 10 years ago 09/22/[address]: 473064527 Never drinks alcohol 09/22/2014 Allergies, Adverse Reactions, [...] Fill Instructions Keflex 500 mg capsule RxNorm: 111644 1 Capsule(s) PO TID 02/19/2018 02/25/2018 Active Klor-Con M20 mEq tablet,extended release RxNorm: 7743032 TAKE 1 TABLET EVERY MORNING 12/04/2017 No Stop Date Active prednisone 20 mg tablet RxNorm: 499725 2 Tablet(s) PO daily 11/16/2017 11/20/2017 Inactive START TOMORROW Zithromax Z-Mau 250 mg tablet RxNorm: 646854 1 Tablet(s) PO daily 11/16/2017 11/20/2017 Inactive Zithromax Z-Mau 250 mg tablet RxNorm: 869826 1 Tablet(s) PO daily 11/16/2017 11/15/2017 Inactive Keflex 500 mg capsule RxNorm: 203120 1 Capsule(s) PO TID 11/09/2017 11/15/2017 Inactive Zithromax 250 mg tablet RxNorm: 620054 [address] day and 1 tab po on day 2-5 Tablet(s) PO 08/30/2017 09/03/2017 Inactive zpack x 1 doxycycline hyclate 100 mg tablet RxNorm: 766816 1 Tablet(s) PO BID 07/09/2017 07/15/2017 Inactive prednisone 20 mg tablet RxNorm: 229899 2 Tablet(s) PO daily 06/29/2017 07/01/2017 Inactive START TOMORROW Kenalog 40 mg/mL suspension for injection RxNorm: 8978496 Milliliter(s) Inj 06/29/2017 06/29/2017 Inactive Lasix 40 mg tablet RxNorm: 869468 TAKE 1 TABLET DAILY 04/24/2017 No Stop Date Active Diflucan 150 mg tablet RxNorm: 767304 1 Tablet(s) PO daily 04/10/2017 04/16/2017 Inactive Bactrim DS 800 mg-160 mg tablet RxNorm: 593491 1 Tablet(s) PO BID 04/10/2017 04/16/2017 Inactive nystatin 100,000 unit/mL oral suspension RxNorm: 722498 5 Milliliter(s) PO QID 04/10/2017 04/19/2017 Inactive cefdinir 300 mg capsule RxNorm: 276587 1 Capsule(s) PO BID 03/28/2017 04/06/2017 Inactive cefdinir 300 mg capsule RxNorm: 712698 1 Capsule(s) PO BID 02/06/2017 02/15/2017 Inactive ceftriaxone 500 mg solution for injection RxNorm: 2493829 Inj 02/06/2017 02/06/2017 Inactive omeprazole 20 mg tablet,delayed release RxNorm: 242194 1 Tablet(s) PO daily 11/06/2016 12/05/2016 Inactive Phenergan with Codeine Syrup RxNorm: 5 Milliliter(s) PO QID as needed 10/30/2016 No Stop Date Active Tessalon Perles 100 mg capsule RxNorm: 250944 1-2 Capsule(s) PO TID as needed cough 10/30/2016 11/08/2016 Inactive Klor-Con M20 mEq tablet,extended release RxNorm: 3735007 TAKE 1 TABLET EVERY MORNING 10/26/2016 12/03/2017 Inactive ceftriaxone 500 mg solution for injection RxNorm: 2364332 1 Milliliter(s) Inj 09/27/2016 09/27/2016 Inactive Phenergan with Codeine Syrup RxNorm: 5 Milliliter(s) PO QID as needed 09/27/2016 10/29/2016 Inactive Tessalon Perles 100 mg capsule RxNorm: 120143 1-2 Capsule(s) PO TID as needed cough 09/27/2016 09/29/2016 Inactive Kenalog 40 mg/mL suspension for injection RxNorm: 7125057 1 Milliliter(s) Inj 09/27/2016 09/27/2016 Inactive Flagyl 500 mg tablet RxNorm: 994598 1 Tablet(s) PO TID 2016 08/05/2016 Inactive Lasix 40 mg tablet RxNorm: 316797 TAKE 1 TABLET DAILY 07/26/2016 04/23/2017 Inactive Zithromax 250 mg tablet RxNorm: 230241 [address] day and 1 tab po on day 2-5 Tablet(s) PO 03/28/2016 03/27/2016 Inactive zpack x 1 Zithromax 250 mg tablet RxNorm: 153543 [address] day and 1 tab po on day 2-5 Tablet(s) PO 03/28/2016 04/01/2016 Inactive zpack x 1 Flagyl 500 mg tablet RxNorm: 063026 1 Tablet(s) PO TID 02/07/2016 02/06/2016 Inactive Flagyl 500 mg tablet RxNorm: 652859 1 Tablet(s) PO TID 02/07/2016 02/16/2016 Inactive Zyrtec-D 5 mg-120 mg tablet,extended release RxNorm: 8660963 1 Tablet(s) PO daily as needed allergies 11/23/2015 No Stop Date Active Imodium A-D 2 mg tablet RxNorm: 020505 1/2 Tablet(s) PO daily 11/23/2015 No Stop Date Active Mucinex 600 mg tablet, extended release RxNorm: 977927 1 Tablet(s) PO BID as needed 11/23/2015 01/21/2016 Inactive Lasix 40 mg tablet RxNorm: 307708 TAKE 1 TABLET DAILY 11/01/2015 07/25/2016 Inactive Klor-Con M20 mEq tablet,extended release RxNorm: 6233850 TAKE 1 TABLET EVERY MORNING 11/01/2015 10/25/2016 Inactive Flonase Allergy Relief 50 mcg/actuation nasal spray,suspension RxNorm: 2 Mccomb NASAL daily 07/20/2015 No Stop Date Active Kenalog 40 mg/mL suspension for injection RxNorm: 0166671 Milliliter(s) Inj 02/02/2015 02/02/2015 Inactive Crestor 5 mg tablet RxNorm: 330132 1/2 Tablet(s) PO daily 10/05/2014 09/29/2015 Inactive metoprolol tartrate 100 mg tablet RxNorm: 874973 1 Tablet(s) PO BID 10/05/2014 12/28/2015 Inactive Plavix 75 mg tablet RxNorm: 475910 1 Tablet(s) PO daily 10/05/2014 03/07/2015 Inactive Klor-Con M20 mEq tablet,extended release RxNorm: 436253 1 Tablet(s) PO QAM 10/05/2014 10/31/2015 Inactive Lasix 40 mg tablet RxNorm: 319406 1 Tablet(s) PO daily 10/05/2014 10/31/2015 Inactive Efudex 5 % topical cream RxNorm: 243117 1 Application TOP BID x 2 weeks, allow healing x 1 -2 weeks, then reuse 10/05/2014 07/05/2015 Inactive Pradaxa 150 mg capsule RxNorm: 8390887 1 Capsule(s) PO BID 10/05/2014 04/09/2017 Inactive amlodipine 10 mg tablet RxNorm: 668804 1/2 Tablet(s) PO QAM 10/05/2014 07/05/2015 Inactive Efudex 5 % topical cream RxNorm: 731378 1 Application TOP BID x 2 weeks, allow healing x 1 -2 weeks, then reuse 09/22/2014 10/04/2014 Inactive Klor-Con M20 mEq tablet,extended release RxNorm: 197780 1 Tablet(s) PO QAM 09/22/2014 10/04/2014 Inactive Lasix 40 mg tablet RxNorm: 667711 1 Tablet(s) PO daily 09/22/2014 10/04/2014 Inactive Cartia XT 180 mg capsule,extended release RxNorm: 359944 2 Capsule(s) PO daily No Start Date Active cetirizine 10 mg tablet RxNorm: 7155471 1 Tablet(s) PO daily at lunch No Start Date Active Canasa 1,000 mg rectal suppository RxNorm: 094845 [address] seymour No Start Date Active Lialda 1.2 gram tablet,delayed release RxNorm: 196010 1 Tablet(s) PO QHS -Prescried by Dr. Seymour No Start Date Active Centrum Silver oral RxNorm: 57259 oral No Start Date Active Eliquis 5 mg tablet RxNorm: 1901500 1 Tablet(s) PO BID Dr Avila No Start Date Active aspirin 81 mg capsule,delayed release RxNorm: 869059 1 Capsule(s) PO daily No Start Date Active losartan 25 mg tablet RxNorm: 841716 1 Tablet(s) PO QPM at supper No Start Date Active digoxin 250 mcg tablet RxNorm: 335571 1 Tablet(s) PO daily No Start Date Active Vitamin D3 5,000 unit tablet RxNorm: 082643 1 Tablet(s) PO BID No Start Date Active Probiotic oral RxNorm: 6205 oral No Start Date Active Glucosamine Chondroit Complx Advan oral RxNorm: oral No Start Date Active Plavix 75 mg tablet RxNorm: 865245 1 Tablet(s) PO daily No Start Date 10/04/2014 Inactive Klor-Con M20 mEq tablet,extended release RxNorm: 394220 1 Tablet(s) PO QAM No Start Date 09/21/2014 Inactive Imodium oral RxNorm: oral No Start Date 11/22/2015 Inactive Lasix 40 mg tablet RxNorm: 1 Tablet(s) PO daily No Start Date 09/21/2014 Inactive amlodipine 10 mg tablet RxNorm: 435232 1/2 Tablet(s) PO QAM No Start Date 10/04/2014 Inactive Crestor 5 mg tablet RxNorm: 605544 1/2 Tablet(s) PO daily No Start Date 10/04/2014 Inactive Flonase Allergy Relief 50 mcg/actuation nasal spray,suspension RxNorm: 1 Mccomb NASAL daily No Start Date 07/19/2015 Inactive metoprolol tartrate 100 mg tablet RxNorm: 978270 1 Tablet(s) PO BID No Start Date 10/04/2014 Inactive Probiotic 4X oral RxNorm: 9705195 oral No Start Date 07/06/2015 Inactive Pradaxa 150 mg capsule RxNorm: 2884539 1 Capsule(s) PO BID No Start Date 10/04/2014 Inactive Medication Administered Medication Codes Instructions Start Date Status Kenalog 40 mg/mL suspension for injection RxNorm: 6060566 Milliliter 06/29/2017 No longer Active ceftriaxone 500 mg solution for injection RxNorm: 5006692 02/06/2017 No longer Active Kenalog 40 mg/mL suspension for injection RxNorm: 5664255 1Milliliter 09/27/2016 No longer Active ceftriaxone 500 mg solution for injection RxNorm: 6073719 1Milliliter 09/27/2016 No longer Active Kenalog 40 mg/mL suspension for injection RxNorm: 5276030 Milliliter 02/02/2015 No longer Active Immunizations Vaccine [...] 31.4 pg 10/23/2017 Cbc With Differential Ord2 [place]% 8.5 % 10/23/2017 Cbc With Differential Ord2 [...] 2.73 K/ul 10/23/2017 Cbc With Differential Ord2 [place] ABS# 0.9 K/ul 10/23/2017 Cbc With Differential Ord2 Eos ABS# 0.6 K/ul 10/23/2017 Cbc With Differential Ord2 Baso ABS# 0.0 K/ul 10/23/2017 Digoxin Ord9 DIGOXIN 1.0 NG/ML 10/23/2017 Lipid Ord30 CHOL 108 mg/dL 10/23/2017 Lipid Ord30 HDL 39.0 mg/dl 10/23/2017 Lipid Ord30 TRIG 175 mg/dL 10/23/2017 Lipid Ord30 LDL 34 mg/dL 10/23/2017 Lipid Ord30 C/HDL 2.8 Ratio 10/23/2017 Comp Metabolic Evk869 NA 140 mEq/L 10/23/2017 Comp Metabolic Vph301 K 4.1 mEq/L 10/23/2017 Comp Metabolic Dfw449 CL 102 mEq/L 10/23/2017 Comp Metabolic Wqo118 CO2 30.0 mEq/L 10/23/2017 Comp Metabolic Hrd293 ANION GAP 12 10/23/2017 Comp Metabolic Hap763 GLUCOSE 124 mg/dL 10/23/2017 Comp Metabolic Itb068 Creat 1.1 mg/dL 10/23/2017 Comp Metabolic Okn737 eGFR 71 ml/min/1.73m2 10/23/2017 Comp Metabolic Joh790 BUN 11 mg/dL 10/23/2017 Comp Metabolic Pjm821 B/C Ratio 10.2 Ratio 10/23/2017 Comp Metabolic Pvu098 CALCIUM 9.3 mg/dL 10/23/2017 Comp Metabolic Hrf442 ALK PHOS 72 U/L 10/23/2017 Comp Metabolic Gpg377 AST(SGOT) 21 U/L 10/23/2017 Comp Metabolic Qcr067 ALT(SGPT) 17 U/L 10/23/2017 Comp Metabolic Hza706 BILI T 0.8 mg/dL 10/23/2017 Comp Metabolic Yyy673 ALBUMIN 4.3 g/dL 10/23/2017 Comp Metabolic Xye354 TPRO 7.4 g/dL 10/23/2017 Comp Metabolic Stw072 GLOB 3.1 g/dL 10/23/2017 Comp Metabolic Fmm292 A/G Ratio 1.4 Ratio 10/23/2017 Comp Metabolic Cgi710 Osmo 280 mOsmo 10/23/2017 Tsh Ord6 TSH (3rd IS) 3.37 uIU/mL 10/23/2017 Test(s) Not Perfromed NHT2430 Test(s) Not Performed Test(s) Not Performed. See Below: 10/23/2017 Test(s) Not Perfromed [id number] TEST NAME PSA 10/23/2017 Test(s) Not Perfromed OOF0007 Rejection Reason PSA Performed yearly at Dr. 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 Johnson 10/23/2017 Comp Metabolic Tes464 NA 137 mEq/L 03/21/2016 Comp Metabolic Qtw254 K 4.6 mEq/L 03/21/2016 Comp Metabolic Vuq368 CL 101 mEq/L 03/21/2016 Comp Metabolic Ank963 CO2 31.0 mEq/L 03/21/2016 Comp Metabolic Aym584 ANION GAP 10 03/21/2016 Comp Metabolic Zfb992 GLUCOSE 106 mg/dL 03/21/2016 Comp Metabolic Xfk198 Creat 1.1 mg/dL 03/21/2016 Comp Metabolic Cor049 eGFR 69 ml/min/1.73m2 03/21/2016 Comp Metabolic Xwl241 BUN 11 mg/dL 03/21/2016 Comp Metabolic Spq461 B/C Ratio 9.9 Ratio 03/21/2016 Comp Metabolic Krp442 CALCIUM 9.5 mg/dL 03/21/2016 Comp Metabolic Nis647 ALK PHOS 88 U/L 03/21/2016 Comp Metabolic Wia663 AST(SGOT) 21 U/L 03/21/2016 Comp Metabolic Tgj536 ALT(SGPT) 15 U/L 03/21/2016 Comp Metabolic Lyz993 BILI T 0.7 mg/dL 03/21/2016 Comp Metabolic Bdr228 ALBUMIN 4.2 g/dL 03/21/2016 Comp Metabolic Wpb341 TPRO 7.9 g/dL 03/21/2016 Comp Metabolic Poi322 GLOB 3.7 g/dL 03/21/2016 Comp Metabolic Lcj234 A/G Ratio 1.1 Ratio 03/21/2016 Comp Metabolic Kgp182 Osmo 274 mOsmo 03/21/2016 Lipid Ord30 CHOL [...] 31.3 pg 03/21/2016 Cbc With Differential Ord2 [place]% 10.3 % 03/21/2016 Cbc With Differential Ord2 [...] 2.51 K/ul 03/21/2016 Cbc With Differential Ord2 [place] ABS# 1.2 K/ul 03/21/2016 Cbc With Differential Ord2 Eos ABS# 0.7 K/ul 03/21/2016 Cbc With Differential Ord2 Baso ABS# 0.0 K/ul 03/21/2016 Clostridium Diff Tox A/B Eri212 Cdiff Negative 02/01/2016 Culture Mrsa [id number] MRSA CULTURE SEE NOTES 04/09/2015 Digoxin Ord9 [...] Ord9 DIGOXIN 1.0 NG/ML 03/11/2015 Comp Metabolic Jkt483 NA 142 mEq/L 03/11/2015 Comp Metabolic Odm748 K 4.4 mEq/L 03/11/2015 Comp Metabolic Mqt714 CL 107 mEq/L 03/11/2015 Comp Metabolic Gnm972 CO2 27.0 mEq/L 03/11/2015 Comp Metabolic Tql416 ANION GAP 12 03/11/2015 Comp Metabolic Bah877 GLUCOSE 106 mg/dL 03/11/2015 Comp Metabolic Cax973 Creat 1.1 mg/dL 03/11/2015 Comp Metabolic Wku726 eGFR 68 ml/min/1.73m2 03/11/2015 Comp Metabolic Nap929 BUN 16 mg/dL 03/11/2015 Comp Metabolic Elo566 B/C Ratio 14.3 Ratio 03/11/2015 Comp Metabolic Dbb336 CALCIUM 9.5 mg/dL 03/11/2015 Comp Metabolic Tal218 ALK PHOS 82 U/L 03/11/2015 Comp Metabolic Che091 AST(SGOT) 20 U/L 03/11/2015 Comp Metabolic Xiv671 ALT(SGPT) 17 U/L 03/11/2015 Comp Metabolic Aft479 BILI T 0.4 mg/dL 03/11/2015 Comp Metabolic Aqu062 ALBUMIN 4.0 g/dL 03/11/2015 Comp Metabolic Bto910 TPRO 6.9 g/dL 03/11/2015 Comp Metabolic Gbi323 GLOB 2.9 g/dL 03/11/2015 Comp Metabolic Pfi086 A/G Ratio 1.4 Ratio 03/11/2015 Comp Metabolic Aza263 Osmo 285 mOsmo 03/11/2015 Cbc With Differential [...] rhythm 11/09/2017 None Full Exam - General [facility] Constitutional general appearance Development: well developed 10/22/2017 [...] inspection of skin Location: face 10/22/2017 right druze, forehead, left druze - irrirated actinic keratosis Full Exam - [...] inspection of skin Location: face 03/21/2016 right druze, forehead, left druze - irrirated actinic keratosis Full Exam - [...] inspection of skin Location: face 11/23/2015 right druze, left druze - irrirated actinic keratosis Full Exam - [...] inspection of skin Location: face 07/06/2015 right druze, forehead, left druze - irrirated actinic keratosis Full Exam - [...] CPT-4: J3301 06/29/2017 THER/PROPH/DIAG INJ SC/IM CPT-4: 08347 02/06/2017 ROCEPHIN, PER 250 MG CPT- 4: J0696 02/06/2017 ROCEPHIN, PER 250 MG CPT- 4: J0696 09/27/2016 TRIAMCINOLONE ACET INJ NOS CPT-4: J3301 09/27/2016 THER/PROPH/DIAG INJ SC/IM CPT-4: 96512 09/27/2016 DESTRUCT PREMALG LESION CPT-4: 82427 10/14/2015 DESTRUCT PREMALG LESION CPT-4: 92886 07/20/2015 DESTRUCT PREMALG LESION CPT-4: 31536 07/06/2015 DESTRUCT PREMALG LES 2-14 CPT-4: 23076 07/06/2015 TRIAMCINOLONE ACET INJ NOS CPT-4: J3301 02/02/2015 Vital Signs Date Vital 02/19/2018 Blood Pressure 1: 128/76 Code: 8480-6 BMI: 30.0 Code: 03112-1 Heart Rate 1: 66 bpm Height: 5'8" SpO2: 97% Weight: 197 lbs 11/09/2017 Blood Pressure 1: 130/74 Code: 8480-6 BMI: 29.3 Code: 45501-5 Heart Rate 1: 81 bpm Height: 5'8" SpO2: 98% Temperature: 36.6 (C) / 97.9 (F) Weight: 193 lbs 10/22/2017 Blood Pressure 1: 132/82 Code: 8480-6 BMI: 29.0 Code: 17439-5 Heart Rate 1: 80 bpm Height: 5'8" SpO2: 98% Weight: 191 lbs 2017 Blood Pressure 1: 142/68 Code: 8480-6 BMI: 28.7 Code: 86481-4 Heart Rate 1: 62 bpm Height: 5'8" SpO2: 98% Waist Measure (cm): 102 cm Weight: 189 lbs 07/23/2017 Blood Pressure 1: 138/84 Code: 8480-6 BMI: 29.0 Code: 43977-2 Heart Rate 1: 69 bpm Height: 5'8" SpO2: 98% Weight: 191 lbs 07/09/2017 Blood Pressure 1: 120/82 Code: 8480-6 BMI: 29.2 Code: 66001-0 Heart Rate 1: 80 bpm Height: 5'8" SpO2: 98% Weight: 192 lbs 06/29/2017 Blood Pressure 1: 140/82 Code: 8480-6 BMI: 29.5 Code: 17270-3 Heart Rate 1: 83 bpm Height: 5'8" SpO2: 98% Weight: 194 lbs 04/23/2017 Blood Pressure 1: 132/74 Code: 8480-6 BMI: 28.4 Code: 05432-7 Heart Rate 1: 78 bpm Height: 5'8" SpO2: 97% Weight: 187 lbs 04/10/2017 Blood Pressure 1: 126/68 Code: 8480-6 BMI: 29.5 Code: 78812-3 Heart Rate 1: 68 bpm Height: 5'8" SpO2: 92% Temperature: 37.5 (C) / 99.5 (F) Weight: 194 lbs 03/29/2017 Blood Pressure 1: 116/76 Code: 8480-6 BMI: 29.6 Code: 52768-3 Heart Rate 1: 61 bpm Height: 5'8" SpO2: 98% Weight: 195 lbs 02/06/2017 Blood Pressure 1: 130/74 Code: 8480-6 BMI: 30.4 Code: 73009-8 Heart Rate 1: 71 bpm Height: 5'8" SpO2: 98% Weight: 200 lbs 11/06/2016 Blood Pressure 1: 140/74 Code: 8480-6 BMI: 29.5 Code: 79521-0 Heart Rate 1: 76 bpm Height: 5'8" SpO2: 96% Weight: 194 lbs 09/27/2016 Blood Pressure 1: 138/78 Code: 8480-6 BMI: 29.6 Code: 68671-0 Heart Rate 1: 68 bpm Height: 5'8" SpO2: 97% Weight: 195 lbs 03/21/2016 Blood Pressure 1: 148/82 Code: 8480-6 BMI: 30.6 Code: 31751-2 Heart Rate 1: 67 bpm Height: 5'8" SpO2: 98% Weight: 201 lbs 02/01/2016 Blood Pressure 1: 128/86 Code: 8480-6 BMI: 30.3 Code: 76762-7 Heart Rate 1: 84 bpm Height: 5'8" SpO2: 96% Weight: 199 lbs 11/23/2015 Blood Pressure 1: 132/76 Code: 8480-6 BMI: 30.4 Code: 72127-0 Heart Rate 1: 81 bpm Height: 5'8" SpO2: 98% Weight: 200 lbs 10/14/2015 Blood Pressure 1: 120/80 Code: 8480-6 BMI: 30.4 Code: 70236-3 Heart Rate 1: 87 bpm Height: 5'8" SpO2: 97% Weight: 200 lbs 07/20/2015 Blood Pressure 1: 132/84 Code: 8480-6 BMI: 31.0 Code: 64949-4 Heart Rate 1: 78 bpm Height: 5'8" SpO2: 96% Weight: 204 lbs 07/06/2015 Blood Pressure 1: 130/78 Code: 8480-6 BMI: 31.0 Code: 45406-1 Heart Rate 1: 80 bpm Height: 5'8" SpO2: 98% Weight: 204 lbs 03/29/2015 Blood Pressure 1: 132/82 Code: 8480-6 BMI: 29.6 Code: 74230-8 Heart Rate 1: 76 bpm Height: 5'8" SpO2: 96% Weight: 195 lbs 03/08/2015 Blood Pressure 1: 126/84 Code: 8480-6 BMI: 30.2 Code: 34741-9 Heart Rate 1: 101 bpm Height: 5'8" SpO2: 98% Weight: 198 lbs 8 oz 02/02/2015 Blood Pressure 1: 132/86 Code: 8480-6 Heart Rate 1: 86 bpm SpO2: 98% Temperature: 36.6 (C) / 97.8 (F) Weight: 198 lbs 09/22/2014 Blood Pressure 1: 128/80 Code: 8480-6 BMI: 29.3 Code: 20894-9 Heart Rate 1: 85 bpm Height: 5'8" [...] data Encounters Encounter Performer Location Codes Date 80024 EST. PATIENT, LEVEL IV Diagnosis: Other acute sinusitis[ICD10: J01.80] Diagnosis: Other allergic rhinitis[ICD10: J30.89] Sandra Parsons MD, [facility] CPT- 4: 39674 02/19/2018 34203 EST. PATIENT, LEVEL III Diagnosis: Acute laryngopharyngitis[ICD10: J06.0] Diagnosis: Other allergic rhinitis[ICD10: J30.89] Sandra Parsons MD, [facility] CPT- 4: 73114 11/09/2017 [id number]) 47514 EST. PATIENT, LEVEL IV Diagnosis: Essential (primary) hypertension[ICD10: I10] Diagnosis: Chronic atrial fibrillation[ICD10: I48.2] Steffany Parsons MD, [facility] CPT-4: 01787 10/22/2017 [id number]) 40027 EST. PATIENT, LEVEL IV Diagnosis: Essential (primary) hypertension[ICD10: I10] Diagnosis: Chronic atrial fibrillation[ICD10: I48.2] Diagnosis: Cough[ICD10: R05] Steffany Parsons MD, [facility] CPT-4: 00864 07/23/2017 84081 83655 EST. PATIENT, LEVEL III Diagnosis: Cough[ICD10: R05] Diagnosis: Other allergic rhinitis[ICD10: J30.89] Diagnosis: Chronic obstructive pulmonary disease with (acute) exacerbation[ICD10: J44.1] Lucrecia Parsons MD, [facility] CPT-4: 69165 07/09/2017 ([id number]) 39636 EST. PATIENT, LEVEL III Diagnosis: Cough[ICD10: R05] Diagnosis: Other allergic rhinitis[ICD10: J30.89] Diagnosis: Chronic obstructive pulmonary disease with (acute) exacerbation[ICD10: J44.1] Lucrecia Parsons MD, [facility] CPT-4: 60861 06/29/2017 ([id number]) 88434 EST. PATIENT, LEVEL III Diagnosis: Essential (primary) hypertension[ICD10: I10] Diagnosis: Cough[ICD10: R05] Steffany Parsons MD, [facility] CPT-4: 98689 04/23/2017 ([id number]) 17435 EST. PATIENT, LEVEL IV Diagnosis: Hemoptysis[ICD10: R04.2] Diagnosis: Essential (primary) hypertension[ICD10: I10] Diagnosis: Chronic obstructive pulmonary disease with acute lower respiratory infection[ICD10: J44.0] Steffany Parsons MD, [facility] CPT-4: 20388 04/10/2017 20036 EST. PATIENT, LEVEL III Diagnosis: Acute laryngopharyngitis[ICD10: J06.0] Diagnosis: Other allergic rhinitis[ICD10: J30.89] Sandra Parsons MD, [facility] CPT- 4: 57285 03/29/2017 ([id number]) 51150 EST. PATIENT, LEVEL III Diagnosis: Pneumonia due to Mycoplasma pneumoniae[ICD10: J15.7] Diagnosis: Cough[ICD10: R05] Diagnosis: Other chest pain[ICD10: R07.89] Steffany Parsons MD, [facility] CPT-4: 30438 02/06/2017 04191 EST. PATIENT, LEVEL IV Diagnosis: Cough[ICD10: R05] Diagnosis: Shortness of breath[ICD10: R06.02] Diagnosis: Gastro-esophageal reflux disease without esophagitis[ICD10: K21.9] Sandra Parsons MD, [facility] CPT-4: 45376 11/06/2016 20716 EST. PATIENT, LEVEL IV Diagnosis: Other allergic rhinitis[ICD10: J30.89] Diagnosis: Acute bronchitis due to other specified organisms[ICD10: J20.8] Sandra Parsons MD, [facility] CPT-4: 55821 09/27/2016 [id number]) 22619 EST. PATIENT, LEVEL IV Diagnosis: Essential (primary) hypertension[ICD10: I10] Diagnosis: Chronic atrial fibrillation[ICD10: I48.2] Diagnosis: Encounter for therapeutic drug level monitoring[ICD10: Z51.81] Steffany Parsons MD, [facility] CPT-4: 93275 03/21/2016 ([id number]) 32656 EST. 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 PATIENT, LEVEL III Diagnosis: Allergic rhinitis due to pollen[ICD10: J30.1] Diagnosis: Actinic keratosis[ICD10: L57.0] Lucrecia Parsons MD, [facility] CPT-4: 41354 10/14/2015 ([id number]) 79195 EST. PATIENT, LEVEL IV Diagnosis: Essential (primary) hypertension[ICD10: I10] Diagnosis: Chronic atrial fibrillation[ICD10: I48.2] Steffany Parsons MD, [facility] CPT-4: 96503 07/06/2015 48902 EST. PATIENT, LEVEL III Diagnosis: Essential (primary) hypertension[ICD10: I10] Diagnosis: Chronic atrial fibrillation[ICD10: I48.2] Diagnosis: Shortness of breath[ICD10: R06.02] Diagnosis: Melena[ICD10: K92.1] Sandra Parsons MD, [facility] CPT-4: 41078 03/29/2015 ([id number]) 22143 EST. PATIENT, LEVEL IV Diagnosis: Essential (primary) hypertension[ICD10: I10] Diagnosis: Chronic atrial fibrillation[ICD10: I48.2] Diagnosis: Cough[ICD10: R05] Steffany Parsons MD, [facility] CPT-4: 51510 03/08/2015 ([id number]) 32242 EST. PATIENT, LEVEL III Diagnosis: Other seasonal allergic rhinitis[ICD10: J30.2] Diagnosis: Other lesions of oral mucosa[ICD10: K13.79] Lucrecia Parsons MD, [facility] CPT-4: 00566 02/02/2015 ([id number]) OFFICE VISIT, NEW - LEVEL 4 Diagnosis: ESSENTIAL HYPERTENSION[ICD9: 401.9] Diagnosis: HYPERLIPIDEMIA[ICD9: 272.4] Diagnosis: ACTINIC KERATOSIS[ICD9: 702.0] Steffany Parsons MD, [facility] CPT-4: 23371 09/22/2014 Plan of Care Planned Activity Notes [...] spray. 11/09/2017 Appointment: Sandra Tim WPtel: [phone] [phone] (15 min) Moderate 11/09/2017 Patient Education: Patient [...] becoming uncontrolled. 10/22/2017 Appointment: [phone] ([facility] min) Moderate 10/22/2017 Patient Education: Patient [...] [phone] ([place] min) Moderate 07/23/2017 Patient Education: Patient [...] changes. 07/09/2017 Appointment: Lucrecia Yeager WPtel: [phone] [phone] (30 min) Complex 07/09/2017 Patient Education: Patient [...] changes. 06/29/2017 Appointment: Lucrecia Yeager WPtel: [phone] [phone] [place] (15 min) Moderate 06/29/2017 Patient Education: Patient Medication Summary Completed 06/29/2017 Appointment: Steffany Parsons WPtel: [address] [place], [place] [phone] (15 min) Moderate 04/30/2017 Visit [...] breathing treatments. 04/23/2017 Appointment: Steffany Parsons WPtel: [address] [place], [place] [phone] (15 min) Moderate 04/23/2017 Patient Education: Patient Medication Summary Completed 04/23/2017 Visit Plan: Hemoptysis and COPD exacerbation - continue with antibiotics, rx for antifungal tablet and suspension. chest xray ordered, monitor symptoms. Pt to stop aspirin x 1 week, continue with eliquis. call if s ymptoms are not improving. rx for phenergan with codeine. 04/10/2017 Appointment: Steffany Parsons WPtel: [address] [place], [place] [phone] (15 min) Moderate 04/10/2017 Patient Education: Patient [...] spray. 03/29/2017 Appointment: Sandra Tim WPtel: [facility] [facility] [place] (15 min) Moderate 03/29/2017 Patient Education: [...] cough. 02/06/2017 Appointment: Steffany Parsons WPtel: [phone] [facility] (15 min) Moderate 02/06/2017 Patient Education: Patient [...] improving. 11/06/2016 Appointment: Sandra Tim WPtel: [phone] [facility] (15 min) Moderate 11/06/2016 Patient [...] worsen. 09/27/2016 [facility]ment: [phone] ([facility]) Complex 09/27/2016 Patient Education: [...] becoming uncontrolled. 03/21/2016 Appointment: [phone] ([facility] min) Moderate 03/21/2016 Patient Education: Patient Medication Summary Completed 03/21/2016 Patient Education: Obesity Completed 03/21/2016 Visit Plan: Diarrhea-recent abx use-check stool for cdiff-increase probiotic to twice daily-bland diet advance as tolerated-call if symptoms do not resolve or if any worse. Patient verbalized understanding of plan. 02/01/2016 Appointment: Lucrecia Yeager WPtel: [phone] (15 min) Moderate 02/01/2016 Patient Education: Patient Medication Summary Completed 02/01/2016 Patient Education: Obesity Completed 02/01/2016 [facility] [place] Info faxed Completed 11/27/2015 Visit Plan: Hypertension [...] Completed 11/23/2015 Appointment: Steffany Parsons WPtel: [facility]5 [facility] (15 min) Moderate 11/15/2015 Visit Plan: Allergies [...] heal 10/14/2015 Appointment: Lucrecia Yeager WPtel: [facility]3 [phone] (15 min) Moderate 10/14/2015 Patient [...] concerns. 07/20/2015 Appointment: Lucrecia Yeager WPtel: [phone] (30 min) Complex 07/20/2015 Patient Education: Patient [...] concerns. 07/06/2015 Appointment: Jaqueline Steffany WPtel: [facility] [place] (15 min) Moderate 07/06/2015 Patient Education: Patient [...] - pt has an upcoming appointment with human resources specialist to possibly have an ablation done. [...] 03/08/2015 Patient Education: Hypertension Completed 03/08/2015 [facility] [place] Referral Completed 02/13/2015 Visit Plan: Allergies - [...] 02/02/2015 Care Plan: Referral Order SNOMED-CT : [id number] Ordered 02/02/2015 Visit Plan: Hypertension - well [...] not improving. 09/22/2014 Appointment: Steffany Parsons WPtel: [address] [place], [place] [address] [place] ([place]) New Patient 09/22/2014 Patient Education: Patient Medication Summary Completed 09/22/2014 Patient Education: Hypertension Completed 09/22/2014 [facility] [place] Referral Initiated Instructions Comment . Hypertension - [...] - pt has an upcoming appointment with human resources specialist to possibly have an ablation done. [...]
--- OUTSIDE RECORDS SUMMARY | 2018-08-31 19:29 | XMS REPORT | CCD ---
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 Name Role Phone PP Unavailable CCM Unavailable Summary Purpose Interface Exchange Insurance Providers Payer name Policy type / Coverage type Covered libertarian ID Effective Begin Date Effective End Date [facility] Commercial Insurance [id number] Unknown Unknown Family history Father Diagnosis Age At Onset Prostate Cancer Unknown Runs in the family Diagnosis Age At Onset Hypertension Unknown Mother Diagnosis Age At Onset No Family Disease Entered N/A Social History Social History Element Codes Description Effective Dates Marital status Unknown Mary 02/06/2017 Number of children Unknown 5 09/22/[address]: 4322641 Quit over 10 years ago 09/22/[address]: 945854169 Never drinks alcohol 09/22/2014 Allergies, Adverse Reactions, Alerts Substance Reaction Codes Entered Date Inactivated Date Status * NO KNOWN DRUG ALLERGIES Unknown 09/22/2014 No Inactive Date Active Past Medical History Illness Codes Condition Status Onset Date Resolved Date Acute laryngopharyngitis ICD-9: 465.0 ICD-10: J06.0 Active 03/29/2017 Unknown Other allergic rhinitis ICD-9: 477.8 ICD-10: [...] Condition Codes Effective Dates Condition Status Acute laryngopharyngitis ICD-9: 465.0 ICD-10: J06.0 03/29/2017 Active Other allergic rhinitis ICD-9: 477.8 ICD-10: [...] Fill Instructions prednisone 20 mg tablet RxNorm: 041099 2 Tablet(s) PO daily 11/16/2017 11/20/2017 Active START TOMORROW Zithromax Z-Mau 250 mg tablet RxNorm: 771562 1 Tablet(s) PO daily 11/16/2017 11/20/2017 Active Zithromax Z-Mau 250 mg tablet RxNorm: 275192 1 Tablet(s) PO daily 11/16/2017 11/15/2017 Inactive Keflex 500 mg capsule RxNorm: 035329 1 Capsule(s) PO TID 11/09/2017 11/15/2017 Inactive Zithromax 250 mg tablet RxNorm: 344308 [address] day and 1 tab po on day 2-5 Tablet(s) PO 08/30/2017 09/03/2017 Inactive zpack x 1 doxycycline hyclate 100 mg tablet RxNorm: 634317 1 Tablet(s) PO BID 07/09/2017 07/15/2017 Inactive prednisone 20 mg tablet RxNorm: 603573 2 Tablet(s) PO daily 06/29/2017 07/01/2017 Inactive START TOMORROW Kenalog 40 mg/mL suspension for injection RxNorm: 1494194 Milliliter(s) Inj 06/29/2017 06/29/2017 Inactive Lasix 40 mg tablet RxNorm: 751758 TAKE 1 TABLET DAILY 04/24/2017 No Stop Date Active Diflucan 150 mg tablet RxNorm: 236881 1 Tablet(s) PO daily 04/10/2017 04/16/2017 Inactive Bactrim DS 800 mg-160 mg tablet RxNorm: 573002 1 Tablet(s) PO BID 04/10/2017 04/16/2017 Inactive nystatin 100,000 unit/mL oral suspension RxNorm: 241785 5 Milliliter(s) PO QID 04/10/2017 04/19/2017 Inactive cefdinir 300 mg capsule RxNorm: 718364 1 Capsule(s) PO BID 03/28/2017 04/06/2017 Inactive cefdinir 300 mg capsule RxNorm: 117275 1 Capsule(s) PO BID 02/06/2017 02/15/2017 Inactive ceftriaxone 500 mg solution for injection RxNorm: 3297173 Inj 02/06/2017 02/06/2017 Inactive omeprazole 20 mg tablet,delayed release RxNorm: 808792 1 Tablet(s) PO daily 11/06/2016 12/05/2016 Inactive Phenergan with Codeine Syrup RxNorm: 5 Milliliter(s) PO QID as needed 10/30/2016 No Stop Date Active Tessalon Perles 100 mg capsule RxNorm: 200232 1-2 Capsule(s) PO TID as needed cough 10/30/2016 11/08/2016 Inactive Klor-Con M20 mEq tablet,extended release RxNorm: 2681285 TAKE 1 TABLET EVERY MORNING 10/26/2016 No Stop Date Active ceftriaxone 500 mg solution for injection RxNorm: 2067655 1 Milliliter(s) Inj 09/27/2016 09/27/2016 Inactive Phenergan with Codeine Syrup RxNorm: 5 Milliliter(s) PO QID as needed 09/27/2016 10/29/2016 Inactive Tessalcrystal Perles 100 mg capsule RxNorm: 183030 1-2 Capsule(s) PO TID as needed cough 09/27/2016 09/29/2016 Inactive Kenalog 40 mg/mL suspension for injection RxNorm: 9410808 1 Milliliter(s) Inj 09/27/2016 09/27/2016 Inactive Flagyl 500 mg tablet RxNorm: 898341 1 Tablet(s) PO TID 2016 08/05/2016 Inactive Lasix 40 mg tablet RxNorm: TAKE 1 TABLET DAILY 07/26/2016 04/23/2017 Inactive Zithromax 250 mg tablet RxNorm: 856848 [address] day and 1 tab po on day 2-5 Tablet(s) PO 03/28/2016 03/27/2016 Inactive zpack x 1 Zithromax 250 mg tablet RxNorm: 860625 [address] day and 1 tab po on day 2-5 Tablet(s) PO 03/28/2016 04/01/2016 Inactive zpack x 1 Flagyl 500 mg tablet RxNorm: 617478 1 Tablet(s) PO TID 02/07/2016 02/06/2016 Inactive Flagyl 500 mg tablet RxNorm: 823233 1 Tablet(s) PO TID 02/07/2016 02/16/2016 Inactive Zyrtec-D 5 mg-120 mg tablet,extended release RxNorm: 0787952 1 Tablet(s) PO daily as needed allergies 11/23/2015 No Stop Date Active Imodium A-D 2 mg tablet RxNorm: 290266 1/2 Tablet(s) PO daily 11/23/2015 No Stop Date Active Mucinex 600 mg tablet, extended release RxNorm: 901480 1 Tablet(s) PO BID as needed 11/23/2015 01/21/2016 Inactive Lasix 40 mg tablet RxNorm: TAKE 1 TABLET DAILY 11/01/2015 07/25/2016 Inactive Klor-Con M20 mEq tablet,extended release RxNorm: 2152583 TAKE 1 TABLET EVERY MORNING 11/01/2015 10/25/2016 Inactive Flonase Allergy Relief 50 mcg/actuation nasal spray,suspension RxNorm: 2 [place] NASAL daily 07/20/2015 No Stop Date Active Kenalog 40 mg/mL suspension for injection RxNorm: 5632217 Milliliter(s) Inj 02/02/2015 02/02/2015 Inactive Crestor 5 mg tablet RxNorm: 030481 1/2 Tablet(s) PO daily 10/05/2014 09/29/2015 Inactive metoprolol tartrate 100 mg tablet RxNorm: 173682 1 Tablet(s) PO BID 10/05/2014 12/28/2015 Inactive Plavix 75 mg tablet RxNorm: 467541 1 Tablet(s) PO daily 10/05/2014 03/07/2015 Inactive Klor-Con M20 mEq tablet,extended release RxNorm: 516403 1 Tablet(s) PO QAM 10/05/2014 10/31/2015 Inactive Lasix 40 mg tablet RxNorm: 1 Tablet(s) PO daily 10/05/2014 10/31/2015 Inactive Efudex 5 % topical cream RxNorm: 370359 1 Application TOP BID x 2 weeks, allow healing x 1 -2 weeks, then reuse 10/05/2014 07/05/2015 Inactive Pradaxa 150 mg capsule RxNorm: 0827491 1 Capsule(s) PO BID 10/05/2014 04/09/2017 Inactive amlodipine 10 mg tablet RxNorm: 470346 1/2 Tablet(s) PO QAM 10/05/2014 07/05/2015 Inactive Efudex 5 % topical cream RxNorm: 714236 1 Application TOP BID x 2 weeks, allow healing x 1 -2 weeks, then reuse 09/22/2014 10/04/2014 Inactive Klor-Con M20 mEq tablet,extended release RxNorm: 187246 1 Tablet(s) PO QAM 09/22/2014 10/04/2014 Inactive Lasix 40 mg tablet RxNorm: 1 Tablet(s) PO daily 09/22/2014 10/04/2014 Inactive Cartia XT 180 mg capsule,extended release RxNorm: 218195 2 Capsule(s) PO daily No Start Date Active cetirizine 10 mg tablet RxNorm: 4471591 1 Tablet(s) PO daily at lunch No Start Date Active Canasa 1,000 mg rectal suppository RxNorm: 747364 [address] seymour No Start Date Active Lialda 1.2 gram tablet,delayed release RxNorm: 249346 1 Tablet(s) PO QHS -Prescried by Dr. Seymour No Start Date Active Centrum Silver oral RxNorm: 45968 oral No Start Date Active Eliquis 5 mg tablet RxNorm: 0593323 1 Tablet(s) PO BID Dr Avila No Start Date Active aspirin 81 mg capsule,delayed release RxNorm: 792065 1 Capsule(s) PO daily No Start Date Active losartan 25 mg tablet RxNorm: 381024 1 Tablet(s) PO QPM at supper No Start Date Active digoxin 250 mcg tablet RxNorm: 780242 1 Tablet(s) PO daily No Start Date Active Vitamin D3 5,000 unit tablet RxNorm: 607044 1 Tablet(s) PO BID No Start Date Active Probiotic oral RxNorm: 6205 oral No Start Date Active Glucosamine Chondroit Complx Advan oral RxNorm: oral No Start Date Active Plavix 75 mg tablet RxNorm: 692023 1 Tablet(s) PO daily No Start Date 10/04/2014 Inactive Klor-Con M20 mEq tablet,extended release RxNorm: 271143 1 Tablet(s) PO QAM No Start Date 09/21/2014 Inactive Imodium oral RxNorm: oral No Start Date 11/22/2015 Inactive Lasix 40 mg tablet RxNorm: 717696 1 Tablet(s) PO daily No Start Date 09/21/2014 Inactive amlodipine 10 mg tablet RxNorm: 836101 1/2 Tablet(s) PO QAM No Start Date 10/04/2014 Inactive Crestor 5 mg tablet RxNorm: 483423 1/2 Tablet(s) PO daily No Start Date 10/04/2014 Inactive Flonase Allergy Relief 50 mcg/actuation nasal spray,suspension RxNorm: 1 [place] NASAL daily No Start Date 07/19/2015 Inactive metoprolol tartrate 100 mg tablet RxNorm: 213882 1 Tablet(s) PO BID No Start Date 10/04/2014 Inactive Probiotic 4X oral RxNorm: 4028544 oral No Start Date 07/06/2015 Inactive Pradaxa 150 mg capsule RxNorm: 8005915 1 Capsule(s) PO BID No Start Date 10/04/2014 Inactive Medication Administered Medication Codes Instructions Start Date Status Kenalog 40 mg/mL suspension for injection RxNorm: 1640354 Milliliter 06/29/2017 No longer Active ceftriaxone 500 mg solution for injection RxNorm: 9760442 02/06/2017 No longer Active Kenalog 40 mg/mL suspension for injection RxNorm: 8500022 1Milliliter 09/27/2016 No longer Active ceftriaxone 500 mg solution for injection RxNorm: 4232930 1Milliliter 09/27/2016 No longer Active Kenalog 40 mg/mL suspension for injection RxNorm: 3181531 Milliliter 02/02/2015 No longer Active Immunizations Vaccine Codes Date Status Influenza CVX: 141 01/10/2017 completed Influenza CVX: 141 01/07/2016 completed Influenza CVX: 141 12/01/2013 completed Zoster CVX: 121 04/02/2011 completed Pneumococcal CVX: 33 09/01/2007 completed Assessments Condition Codes Effective Dates Acute laryngopharyngitis ICD-10: J06.0 ICD-9: 465.0 11/09/2017 Other allergic rhinitis ICD-10: J30.89 ICD-9: 477.8 11/09/2017 Chronic atrial fibrillation ICD-10: I48.2 ICD-9: [...] Visit Reason For Visit Effective Dates Notes sore throat 11/09/2017 hypertension 10/22/2017 Annual Medicare [...] 31.4 pg 10/23/2017 Cbc With Differential Ord2 [place]% 8.5 % 10/23/2017 Cbc With Differential Ord2 [...] 2.73 K/ul 10/23/2017 Cbc With Differential Ord2 [place] ABS# 0.9 K/ul 10/23/2017 Cbc With Differential Ord2 Eos ABS# 0.6 K/ul 10/23/2017 Cbc With Differential Ord2 Baso ABS# 0.0 K/ul 10/23/2017 Digoxin Ord9 DIGOXIN 1.0 NG/ML 10/23/2017 Lipid Ord30 CHOL 108 mg/dL 10/23/2017 Lipid Ord30 HDL 39.0 mg/dl 10/23/2017 Lipid Ord30 TRIG 175 mg/dL 10/23/2017 Lipid Ord30 LDL 34 mg/dL 10/23/2017 Lipid Ord30 C/HDL 2.8 Ratio 10/23/2017 Comp Metabolic Sth743 NA 140 mEq/L 10/23/2017 Comp Metabolic Pml191 K 4.1 mEq/L 10/23/2017 Comp Metabolic Gyg458 CL 102 mEq/L 10/23/2017 Comp Metabolic Wzl157 CO2 30.0 mEq/L 10/23/2017 Comp Metabolic Srt051 ANION GAP 12 10/23/2017 Comp Metabolic Tug259 GLUCOSE 124 mg/dL 10/23/2017 Comp Metabolic Ume048 Creat 1.1 mg/dL 10/23/2017 Comp Metabolic Zwh233 eGFR 71 ml/min/1.73m2 10/23/2017 Comp Metabolic Dan595 BUN 11 mg/dL 10/23/2017 Comp Metabolic Tol622 B/C Ratio 10.2 Ratio 10/23/2017 Comp Metabolic Pil112 CALCIUM 9.3 mg/dL 10/23/2017 Comp Metabolic Pgu904 ALK PHOS 72 U/L 10/23/2017 Comp Metabolic Cgf008 AST(SGOT) 21 U/L 10/23/2017 Comp Metabolic Gcf560 ALT(SGPT) 17 U/L 10/23/2017 Comp Metabolic Zuy286 BILI T 0.8 mg/dL 10/23/2017 Comp Metabolic Wuy278 ALBUMIN 4.3 g/dL 10/23/2017 Comp Metabolic Gsx232 TPRO 7.4 g/dL 10/23/2017 Comp Metabolic Qtz026 GLOB 3.1 g/dL 10/23/2017 Comp Metabolic Ebg357 A/G Ratio 1.4 Ratio 10/23/2017 Comp Metabolic Cxm642 Osmo 280 mOsmo 10/23/2017 Tsh Ord6 TSH (3rd IS) 3.37 uIU/mL 10/23/2017 Test(s) Not Perfromed [id number] Test(s) Not Performed Test(s) Not Performed. See Below: 10/23/2017 Test(s) Not Perfromed [id number] TEST NAME PSA 10/23/2017 Test(s) Not Perfromed [id number] Rejection Reason PSA Performed yearly at Dr. Stone's Office 10/23/2017 Test(s) Not Perfromed [id number] COMMENT N/A 10/23/2017 Test(s) Not Perfromed [id number] Hydrogen Treater Gian Johnson 10/23/2017 Comp Metabolic Hoh783 NA 137 mEq/L 03/21/2016 Comp Metabolic Pjk806 K 4.6 mEq/L 03/21/2016 Comp Metabolic Sta459 CL 101 mEq/L 03/21/2016 Comp Metabolic Cue910 CO2 31.0 mEq/L 03/21/2016 Comp Metabolic Kej918 ANION GAP 10 03/21/2016 Comp Metabolic Axo407 GLUCOSE 106 mg/dL 03/21/2016 Comp Metabolic Ses882 Creat 1.1 mg/dL 03/21/2016 Comp Metabolic Eoz093 eGFR 69 ml/min/1.73m2 03/21/2016 Comp Metabolic Sjq304 BUN 11 mg/dL 03/21/2016 Comp Metabolic Ggc999 B/C Ratio 9.9 Ratio 03/21/2016 Comp Metabolic Rnd179 CALCIUM 9.5 mg/dL 03/21/2016 Comp Metabolic Iiw442 ALK PHOS 88 U/L 03/21/2016 Comp Metabolic Nvx945 AST(SGOT) 21 U/L 03/21/2016 Comp Metabolic Rhr510 ALT(SGPT) 15 U/L 03/21/2016 Comp Metabolic Pqw200 BILI T 0.7 mg/dL 03/21/2016 Comp Metabolic Zfz044 ALBUMIN 4.2 g/dL 03/21/2016 Comp Metabolic Aws252 TPRO 7.9 g/dL 03/21/2016 Comp Metabolic Zdt305 GLOB 3.7 g/dL 03/21/2016 Comp Metabolic Uno830 A/G Ratio 1.1 Ratio 03/21/2016 Comp Metabolic Bia745 Osmo 274 mOsmo 03/21/2016 Lipid Ord30 CHOL [...] 31.3 pg 03/21/2016 Cbc With Differential Ord2 [place]% 10.3 % 03/21/2016 Cbc With Differential Ord2 [...] 2.51 K/ul 03/21/2016 Cbc With Differential Ord2 [place] ABS# 1.2 K/ul 03/21/2016 Cbc With Differential Ord2 Eos ABS# 0.7 K/ul 03/21/2016 Cbc With Differential Ord2 Baso ABS# 0.0 K/ul 03/21/2016 Clostridium Diff Tox A/B Zes091 Cdiff Negative 02/01/2016 Culture Mrsa [id number] MRSA CULTURE SEE NOTES 04/09/2015 Digoxin Ord9 [...] Ord9 DIGOXIN 1.0 NG/ML 03/11/2015 Comp Metabolic Rxy815 NA 142 mEq/L 03/11/2015 Comp Metabolic Pvm024 K 4.4 mEq/L 03/11/2015 Comp Metabolic Iin915 CL 107 mEq/L 03/11/2015 Comp Metabolic Tci742 CO2 27.0 mEq/L 03/11/2015 Comp Metabolic Zvs135 ANION GAP 12 03/11/2015 Comp Metabolic Gno537 GLUCOSE 106 mg/dL 03/11/2015 Comp Metabolic Bkq917 Creat 1.1 mg/dL 03/11/2015 Comp Metabolic Jlf201 eGFR 68 ml/min/1.73m2 03/11/2015 Comp Metabolic Ydt985 BUN 16 mg/dL 03/11/2015 Comp Metabolic Xva594 B/C Ratio 14.3 Ratio 03/11/2015 Comp Metabolic Nwu736 CALCIUM 9.5 mg/dL 03/11/2015 Comp Metabolic Ani129 ALK PHOS 82 U/L 03/11/2015 Comp Metabolic Kld321 AST(SGOT) 20 U/L 03/11/2015 Comp Metabolic Kia214 ALT(SGPT) 17 U/L 03/11/2015 Comp Metabolic Orm133 BILI T 0.4 mg/dL 03/11/2015 Comp Metabolic Hhj348 ALBUMIN 4.0 g/dL 03/11/2015 Comp Metabolic Idi787 TPRO 6.9 g/dL 03/11/2015 Comp Metabolic Cdx568 GLOB 2.9 g/dL 03/11/2015 Comp Metabolic Knj303 A/G Ratio 1.4 Ratio 03/11/2015 Comp Metabolic Dwv978 Osmo 285 mOsmo 03/11/2015 Cbc With Differential [...] System Result Effective Dates Constitutional recent illness 11/09/2017 Constitutional No chills [...] inspection of skin Location: face 10/22/2017 right religion, forehead, left religion - irrirated actinic keratosis Full Exam - [...] inspection of skin Location: face 03/21/2016 right religion, forehead, left religion - irrirated actinic keratosis Full Exam - [...] inspection of skin Location: face 11/23/2015 right religion, left religion - irrirated actinic keratosis Full Exam - [...] inspection of skin Location: face 07/06/2015 right religion, forehead, left religion - irrirated actinic keratosis Full Exam - [...] CPT-4: J3301 06/29/2017 THER/PROPH/DIAG INJ SC/IM CPT-4: 61700 02/06/2017 ROCEPHIN, PER 250 MG CPT- 4: J0696 02/06/2017 ROCEPHIN, PER 250 MG CPT- 4: J0696 09/27/2016 TRIAMCINOLONE ACET INJ NOS CPT-4: J3301 09/27/2016 THER/PROPH/DIAG INJ SC/IM CPT-4: 77558 09/27/2016 DESTRUCT PREMALG LESION CPT-4: 78680 10/14/2015 DESTRUCT PREMALG LESION CPT-4: 98493 07/20/2015 DESTRUCT PREMALG LESION CPT-4: 07/06/2015 DESTRUCT PREMALG LES 2-14 CPT-4: 59273 07/06/2015 TRIAMCINOLONE ACET INJ NOS CPT-4: J3301 02/02/2015 Vital Signs Date Vital 11/09/2017 Blood Pressure 1: 130/74 Code: 8480-6 BMI: 29.3 Code: 04082-1 Heart Rate 1: 81 bpm Height: 5'8" SpO2: 98% Temperature: 36.6 (C) / 97.9 (F) Weight: 193 lbs 10/22/2017 Blood Pressure 1: 132/82 Code: 8480-6 BMI: 29.0 Code: 97143-4 Heart Rate 1: 80 bpm Height: 5'8" SpO2: 98% Weight: 191 lbs 2017 Blood Pressure 1: 142/68 Code: 8480-6 BMI: 28.7 Code: 02675-0 Heart Rate 1: 62 bpm Height: 5'8" SpO2: 98% Waist Measure (cm): 102 cm Weight: 189 lbs 07/23/2017 Blood Pressure 1: 138/84 Code: 8480-6 BMI: 29.0 Code: 14781-8 Heart Rate 1: 69 bpm Height: 5'8" SpO2: 98% Weight: 191 lbs 07/09/2017 Blood Pressure 1: 120/82 Code: 8480-6 BMI: 29.2 Code: 27611-1 Heart Rate 1: 80 bpm Height: 5'8" SpO2: 98% Weight: 192 lbs 06/29/2017 Blood Pressure 1: 140/82 Code: 8480-6 BMI: 29.5 Code: 15594-4 Heart Rate 1: 83 bpm Height: 5'8" SpO2: 98% Weight: 194 lbs 04/23/2017 Blood Pressure 1: 132/74 Code: 8480-6 BMI: 28.4 Code: 82193-3 Heart Rate 1: 78 bpm Height: 5'8" SpO2: 97% Weight: 187 lbs 04/10/2017 Blood Pressure 1: 126/68 Code: 8480-6 BMI: 29.5 Code: 45960-4 Heart Rate 1: 68 bpm Height: 5'8" SpO2: 92% Temperature: 37.5 (C) / 99.5 (F) Weight: 194 lbs 03/29/2017 Blood Pressure 1: 116/76 Code: 8480-6 BMI: 29.6 Code: 42488-4 Heart Rate 1: 61 bpm Height: 5'8" SpO2: 98% Weight: 195 lbs 02/06/2017 Blood Pressure 1: 130/74 Code: 8480-6 BMI: 30.4 Code: 87823-1 Heart Rate 1: 71 bpm Height: 5'8" SpO2: 98% Weight: 200 lbs 11/06/2016 Blood Pressure 1: 140/74 Code: 8480-6 BMI: 29.5 Code: 03644-9 Heart Rate 1: 76 bpm Height: 5'8" SpO2: 96% Weight: 194 lbs 09/27/2016 Blood Pressure 1: 138/78 Code: 8480-6 BMI: 29.6 Code: 72081-4 Heart Rate 1: 68 bpm Height: 5'8" SpO2: 97% Weight: 195 lbs 03/21/2016 Blood Pressure 1: 148/82 Code: 8480-6 BMI: 30.6 Code: 10677-2 Heart Rate 1: 67 bpm Height: 5'8" SpO2: 98% Weight: 201 lbs 02/01/2016 Blood Pressure 1: 128/86 Code: 8480-6 BMI: 30.3 Code: 95498-5 Heart Rate 1: 84 bpm Height: 5'8" SpO2: 96% Weight: 199 lbs 11/23/2015 Blood Pressure 1: 132/76 Code: 8480-6 BMI: 30.4 Code: 81909-4 Heart Rate 1: 81 bpm Height: 5'8" SpO2: 98% Weight: 200 lbs 10/14/2015 Blood Pressure 1: 120/80 Code: 8480-6 BMI: 30.4 Code: 00788-0 Heart Rate 1: 87 bpm Height: 5'8" SpO2: 97% Weight: 200 lbs 07/20/2015 Blood Pressure 1: 132/84 Code: 8480-6 BMI: 31.0 Code: 49597-5 Heart Rate 1: 78 bpm Height: 5'8" SpO2: 96% Weight: 204 lbs 07/06/2015 Blood Pressure 1: 130/78 Code: 8480-6 BMI: 31.0 Code: 60097-2 Heart Rate 1: 80 bpm Height: 5'8" SpO2: 98% Weight: 204 lbs 03/29/2015 Blood Pressure 1: 132/82 Code: 8480-6 BMI: 29.6 Code: 65480-4 Heart Rate 1: 76 bpm Height: 5'8" SpO2: 96% Weight: 195 lbs 03/08/2015 Blood Pressure 1: 126/84 Code: 8480-6 BMI: 30.2 Code: 68712-0 Heart Rate 1: 101 bpm Height: 5'8" SpO2: 98% Weight: 198 lbs 8 oz 02/02/2015 Blood Pressure 1: 132/86 Code: 8480-6 Heart Rate 1: 86 bpm SpO2: 98% Temperature: 36.6 (C) / 97.8 (F) Weight: 198 lbs 09/22/2014 Blood Pressure 1: 128/80 Code: 8480-6 BMI: 29.3 Code: 22063-8 Heart Rate 1: 85 bpm Height: 5'8" SpO2: 98% Weight: 193 lbs Functional Status No Functional Status data History of Present Illness Symptom Name Status Result Effective Date Notes sore throat Location diffusely 11/09/2017 None sore [...] Performer Location Codes Date EST. PATIENT, LEVEL III Diagnosis: Acute laryngopharyngitis[ICD10: J06.0] Diagnosis: Other allergic rhinitis[ICD10: J30.89] Sandra Parsons MD, [facility] CPT- 4: 86660 11/09/2017 ([id number]) 27784 EST. PATIENT, LEVEL IV Diagnosis: Essential (primary) hypertension[ICD10: I10] Diagnosis: Chronic atrial fibrillation[ICD10: I48.2] Steffany Parsons MD, [facility] CPT-4: 24563 10/22/2017 ([id number]) 68104 EST. PATIENT, LEVEL IV Diagnosis: Essential (primary) hypertension[ICD10: I10] Diagnosis: Chronic atrial fibrillation[ICD10: I48.2] Diagnosis: Cough[ICD10: R05] Steffany Parsons MD, [facility] CPT-4: 77159 07/23/2017 ([id number]) 85994 EST. PATIENT, LEVEL III Diagnosis: Cough[ICD10: R05] Diagnosis: Other allergic rhinitis[ICD10: J30.89] Diagnosis: Chronic obstructive pulmonary disease with (acute) exacerbation[ICD10: J44.1] Lucrecia Parsons MD, [facility] CPT-4: 08590 07/09/2017 ([id number]) 22249 EST. PATIENT, LEVEL III Diagnosis: Cough[ICD10: R05] Diagnosis: Other allergic rhinitis[ICD10: J30.89] Diagnosis: Chronic obstructive pulmonary disease with (acute) exacerbation[ICD10: J44.1] Lucrecia Parsons MD, [facility] CPT-4: 59892 06/29/2017 ([id number]) 90660 EST. PATIENT, LEVEL III Diagnosis: Essential (primary) hypertension[ICD10: I10] Diagnosis: Cough[ICD10: R05] Steffany Parsons MD, [facility] CPT-4: 86518 04/23/2017 ([id number]) 38922 EST. PATIENT, LEVEL IV Diagnosis: Hemoptysis[ICD10: R04.2] Diagnosis: Essential (primary) hypertension[ICD10: I10] Diagnosis: Chronic obstructive pulmonary disease with acute lower respiratory infection[ICD10: J44.0] Steffany Parsons MD, [facility] CPT-4: 59805 04/10/2017 75243 EST. PATIENT, LEVEL III Diagnosis: Acute laryngopharyngitis[ICD10: J06.0] Diagnosis: Other allergic rhinitis[ICD10: J30.89] Sandra Parsons MD, [facility] CPT- 4: 49521 03/29/2017 ([id number]) 43133 EST. PATIENT, LEVEL III Diagnosis: Pneumonia due to Mycoplasma pneumoniae[ICD10: J15.7] Diagnosis: Cough[ICD10: R05] Diagnosis: Other chest pain[ICD10: R07.89] Steffany Parsons MD, [facility] CPT-4: 59415 02/06/2017 71656 EST. PATIENT, LEVEL IV Diagnosis: Cough[ICD10: R05] Diagnosis: Shortness of breath[ICD10: R06.02] Diagnosis: Gastro-esophageal reflux disease without esophagitis[ICD10: K21.9] Sandra Parsons MD, [facility] CPT-4: 68862 11/06/2016 38348 EST. PATIENT, LEVEL IV Diagnosis: Other allergic rhinitis[ICD10: J30.89] Diagnosis: Acute bronchitis due to other specified organisms[ICD10: J20.8] Sandra Parsons MD, [facility] CPT-4: 04010 09/27/2016 ([id number]) 21296 EST. PATIENT, LEVEL IV Diagnosis: Essential (primary) hypertension[ICD10: I10] Diagnosis: Chronic atrial fibrillation[ICD10: I48.2] Diagnosis: Encounter for therapeutic drug level monitoring[ICD10: Z51.81] Steffany Parsons MD, [facility] CPT-4: 33466 03/21/2016 ([id number]) 61839 EST. 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 PATIENT, LEVEL III Diagnosis: Allergic rhinitis due to pollen[ICD10: J30.1] Diagnosis: Actinic keratosis[ICD10: L57.0] Lucrecia Parsons MD, [facility] CPT-4: 19349 10/14/2015 ([id number]) 80658 EST. PATIENT, LEVEL IV Diagnosis: Essential (primary) hypertension[ICD10: I10] Diagnosis: Chronic atrial fibrillation[ICD10: I48.2] Steffany Parsons MD, [facility] CPT-4: 57238 07/06/2015 94710 EST. PATIENT, LEVEL III Diagnosis: Essential (primary) hypertension[ICD10: I10] Diagnosis: Chronic atrial fibrillation[ICD10: I48.2] Diagnosis: Shortness of breath[ICD10: R06.02] Diagnosis: Melena[ICD10: K92.1] Sandra Parsons MD, [facility] CPT-4: 95239 03/29/2015 ([id number]) 13253 EST. PATIENT, LEVEL IV Diagnosis: Essential (primary) hypertension[ICD10: I10] Diagnosis: Chronic atrial fibrillation[ICD10: I48.2] Diagnosis: Cough[ICD10: R05] Steffany Parsons MD, [facility] CPT-4: 95136 03/08/2015 ([id number]) 10417 EST. PATIENT, LEVEL III Diagnosis: Other seasonal allergic rhinitis[ICD10: J30.2] Diagnosis: Other lesions of oral mucosa[ICD10: K13.79] Lucrecia Parsons MD, [facility] CPT-4: 42751 02/02/2015 ([id number]) OFFICE VISIT, NEW - LEVEL 4 Diagnosis: ESSENTIAL HYPERTENSION[ICD9: 401.9] Diagnosis: HYPERLIPIDEMIA[ICD9: 272.4] Diagnosis: ACTINIC KERATOSIS[ICD9: 702.0] Steffany Parsons MD, [facility] CPT-4: 73446 09/22/2014 Plan of Care Planned Activity Notes Codes Status Date Visit Plan: URI - Pt advised to [...] allergy spray. 11/09/2017 Appointment: Sandra Tim WPtel: [id number] (15 min) Moderate 11/09/2017 Patient [...] becoming uncontrolled. 10/22/2017 Appointment: Steffany Parsons WPtel: [facility] (15 min) Moderate 10/22/2017 Patient Education: Patient [...] spray) 07/23/2017 Appointment: [id number] [place] (15 min) Moderate 07/23/2017 Patient Education: Patient [...] acute changes. 07/09/2017 Appointment: Lu[facility] Yeager [phone] [place] (30 min) Complex 07/09/2017 Patient Education: [...] acute changes. 06/29/2017 Appointment: Lucrecia Yeager WPtel: [id number] (15 min) Moderate 06/29/2017 Patient Education: Patient Medication Summary Completed 06/29/2017 Appointment: Steffany Parsons WPtel: [address] [place], [place] [id number] (15 min) Moderate 04/30/2017 Visit Plan: Hypertension [...] breathing treatments. 04/23/2017 Appointment: Steffany Parsons WPtel: [id number] (15 min) Moderate 04/23/2017 Patient Education: Patient Medication Summary Completed 04/23/2017 Visit Plan: Hemoptysis and COPD exacerbation - continue with antibiotics, rx for antifungal tablet and suspension. chest xray ordered, monitor symptoms. Pt to stop aspirin x 1 week, continue with eliquis. call if s ymptoms are not improving. rx for phenergan with codeine. 04/10/2017 Appointment: Steffany Parsons WPtel: [facility]66[facility] (15 min) Moderate 04/10/2017 Patient Education: Patient [...] spray. 03/29/2017 Appointment: Sandra Tim WPtel: [phone] [phone] (15 min) Moderate 03/29/2017 Patient Education: Patient Medication Summary Completed 03/29/2017 Visit Plan: Pneumonia - Pt has been diagnosed with pneumonia by physical exam. A chest xray has been ordered as have antibiotics. The pt is aware of the diagnosis and the need for acute treatment of this illness. Cough - rx for promethazine/codeine syrup for cough. 02/06/2017 Appointment: Steffany Parsons WPtel: [id number] (15 min) Moderate 02/06/2017 Patient [...] not improving. 11/06/2016 Appointment: Sandra Tim WPtel: [id number] (15 min) Moderate 11/06/2016 Patient Education: Patient [...] worsen. 09/27/2016 Appointment: Sandra Tim WPtel: [phone] [id number] (30 min) Complex 09/27/2016 Patient Education: Patient [...] becoming uncontrolled. 03/21/2016 Appointment: Steffany Parsons WPtel: [facility] (15 min) Moderate 03/21/2016 Patient Education: Patient Medication Summary Completed 03/21/2016 Patient Education: Obesity Completed 03/21/2016 Visit Plan: Diarrhea-recent abx use-check stool for cdiff-increase probiotic to twice daily-bland diet advance as tolerated-call if symptoms do not resolve or if any worse. Patient verbalized understanding of plan. 02/01/2016 Appointment: Lucrecia Yeager WPtel: [phone] [id number] (15 min) Moderate 02/01/2016 Patient Education: Patient Medication Summary Completed 02/01/2016 Patient Education: Obesity Completed 02/01/2016 [id number] [facility] Completed 11/27/2015 Visit Plan: Hypertension [...] Summary Completed 11/23/2015 Appointment: Steffany Parsons [facility]Ptel[facility] (15 min) Moderate 11/15/2015 Visit Plan: Allergies [...] not heal 10/14/2015 Appointment: Lucrecia Yeager WPtel[id number] (15 min) Moderate 10/14/2015 Patient Education: Patient [...] concerns. 07/20/2015 Appointment: Lucrecia Yeager WPtel: [phone] [id number] (30 min) Complex 07/20/2015 [...] concerns. 07/06/2015 Appointment: Steffany Parsons [facility]el[phone] (15 min) Moderate 07/06/2015 Patient Education: Patient [...] - pt has an upcoming appointment with certified health education specialist to possibly have an ablation done. [...] Patient Education: Hypertension Completed 03/08/2015 [id number] Ref[facility] Completed 02/13/2015 Visit Plan: [...] 02/02/2015 Care Plan: Referral Order SNOMED-CT : [id number] Ordered 02/02/2015 Visit Plan: Hypertension - well [...] not improving. 09/22/2014 Appointment: Steffany Parsons WPtel: [address] [place], [place] [id number] [place] ([place] New Patient 09/22/2014 Patient Education: Patient Medication Summary Completed 09/22/2014 Patient Education: Hypertension Completed 09/22/2014 [facility] Referral Initiated Instructions Comment . Hypertension [...] - pt has an upcoming appointment with certified health education specialist to possibly have an ablation done. [...] if the symptoms are not improving. . Allergies - chronic - recommended pt [...]
--- OUTSIDE RECORDS SUMMARY | 2018-08-31 19:31 | XMS REPORT | CCD ---
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 Role Phone PP Unavailable CCM Unavailable Summary Purpose Interface Exchange Insurance Providers Payer name Policy type / Coverage type Covered libertarian ID Effective Begin Date Effective End Date [employer] Commercial Insurance [id number] Unknown Unknown Family history Runs in the family Diagnosis Age At Onset Hypertension Unknown Social History Social History Element Codes Description Effective Dates Marital status Unknown Mary 02/06/2017 Number of children Unknown 5 09/22/[address]: 8399020 Quit over 10 years ago 09/22/[address]: 763684518 Never drinks alcohol 09/22/2014 Allergies, Adverse Reactions, Alerts Allergies, Adverse Reactions, Alerts data not found Past Medical History Illness Codes Condition Status Onset Date Resolved Date Cough ICD-9: 786.2 ICD-10: R05 Active 11/22/2015 Unknown Essential (primary) hypertension ICD-9: 401.9 ICD-10: I10 Active 09/21/2014 Unknown Chronic obstructive pulmonary disease with acute lower respiratory infection ICD-9: 491.22 ICD-10: J44.0 Active 04/10/2017 Unknown Hemoptysis ICD-9: 786.30 ICD-10: R04.2 Active 04/10/2017 Unknown Acute laryngopharyngitis ICD-9: 465.0 ICD-10: J06.0 Active 03/29/2017 Unknown Other allergic rhinitis ICD-9: 477.8 ICD-10: J30.89 Active 09/27/2016 Unknown Other chest pain ICD-9: 786.59 ICD-10: R07.89 Active 02/06/2017 Unknown Pneumonia due to Mycoplasma pneumoniae ICD-9: 041.81 ICD-10: J15.7 Active 02/06/2017 Unknown Acute bronchitis due to other specified organisms ICD-9: 466.0 ICD-10: J20.8 Active 09/27/2016 Unknown Gastro-esophageal reflux disease without esophagitis ICD-9: 530.81 ICD-10: K21.9 Active 11/06/2016 Unknown Shortness of breath ICD- 9: 786.05 ICD-10: R06.02 Active 03/28/2015 Unknown Chronic atrial fibrillation ICD-9: 427.31 ICD-10: [...] Problems Condition Codes Effective Dates Condition Status Cough ICD-9: 786.2 ICD-10: R05 11/22/2015 Active Essential (primary) hypertension ICD-9: 401.9 ICD-10: I10 09/21/2014 Active Chronic obstructive pulmonary disease with acute lower respiratory infection ICD-9: 491.22 ICD-10: J44.0 04/10/2017 Active Hemoptysis ICD-9: 786.30 ICD-10: R04.2 04/10/2017 Active Acute laryngopharyngitis ICD-9: 465.0 ICD-10: J06.0 03/29/2017 Active Other allergic rhinitis ICD-9: 477.8 ICD-10: J30.89 09/27/2016 Active Other chest pain ICD-9: 786.59 ICD-10: R07.89 02/06/2017 Active Pneumonia due to Mycoplasma pneumoniae ICD-9: 041.81 ICD-10: J15.7 02/06/2017 Active Acute bronchitis due to other specified organisms ICD-9: 466.0 ICD-10: J20.8 09/27/2016 Active Gastro-esophageal reflux disease without esophagitis ICD-9: 530.81 ICD-10: K21.9 11/06/2016 Active Shortness of breath ICD- 9: 786.05 ICD-10: R06.02 03/28/2015 Active Chronic atrial fibrillation ICD-9: 427.31 ICD-10: [...] Fill Instructions Lasix 40 mg tablet RxNorm: 221995 TAKE 1 TABLET DAILY 04/24/2017 No Stop Date Active Diflucan 150 mg tablet RxNorm: 619170 1 Tablet(s) PO daily 04/10/2017 04/16/2017 Inactive Bactrim DS 800 mg-160 mg tablet RxNorm: 369482 1 Tablet(s) PO BID 04/10/2017 04/16/2017 Inactive nystatin 100,000 unit/mL oral suspension RxNorm: 173975 5 Milliliter(s) PO QID 04/10/2017 04/19/2017 Inactive cefdinir 300 mg capsule RxNorm: 149796 1 Capsule(s) PO BID 03/28/2017 04/06/2017 Inactive cefdinir 300 mg capsule RxNorm: 906783 1 Capsule(s) PO BID 02/06/2017 02/15/2017 Inactive ceftriaxone 500 mg solution for injection RxNorm: 0428290 Inj 02/06/2017 02/06/2017 Inactive omeprazole 20 mg tablet,delayed release RxNorm: 976411 1 Tablet(s) PO daily 11/06/2016 12/05/2016 Inactive Phenergan with Codeine Syrup RxNorm: 5 Milliliter(s) PO QID as needed 10/30/2016 No Stop Date Active Tessalon Perles 100 mg capsule RxNorm: 332601 1-2 Capsule(s) PO TID as needed cough 10/30/2016 11/08/2016 Inactive Klor-Con M20 mEq tablet,extended release RxNorm: 2399397 TAKE 1 TABLET EVERY MORNING 10/26/2016 No Stop Date Active ceftriaxone 500 mg solution for injection RxNorm: 1286438 1 Milliliter(s) Inj 09/27/2016 09/27/2016 Inactive Phenergan with Codeine Syrup RxNorm: 5 Milliliter(s) PO QID as needed 09/27/2016 10/29/2016 Inactive Tessalon Perles 100 mg capsule RxNorm: 101441 1-2 Capsule(s) PO TID as needed cough 09/27/2016 09/29/2016 Inactive Kenalog 40 mg/mL suspension for injection RxNorm: 1807131 1 Milliliter(s) Inj 09/27/2016 09/27/2016 Inactive Flagyl 500 mg tablet RxNorm: 680639 1 Tablet(s) PO TID 2016 08/05/2016 Inactive Lasix 40 mg tablet RxNorm: 029344 TAKE 1 TABLET DAILY 07/26/2016 04/23/2017 Inactive Zithromax 250 mg tablet RxNorm: 335073 [address] day and 1 tab po on day 2-5 Tablet(s) PO 03/28/2016 03/27/2016 Inactive zpack x 1 Zithromax 250 mg tablet RxNorm: 125262 [address] day and 1 tab po on day 2-5 Tablet(s) PO 03/28/2016 04/01/2016 Inactive zpack x 1 Flagyl 500 mg tablet RxNorm: 458960 1 Tablet(s) PO TID 02/07/2016 02/06/2016 Inactive Flagyl 500 mg tablet RxNorm: 669519 1 Tablet(s) PO TID 02/07/2016 02/16/2016 Inactive Zyrtec-D 5 mg-120 mg tablet,extended release RxNorm: 0784739 1 Tablet(s) PO daily as needed allergies 11/23/2015 No Stop Date Active Imodium A-D 2 mg tablet RxNorm: 027699 1/2 Tablet(s) PO daily 11/23/2015 No Stop Date Active Mucinex 600 mg tablet, extended release RxNorm: 902039 1 Tablet(s) PO BID as needed 11/23/2015 01/21/2016 Inactive Lasix 40 mg tablet RxNorm: 264177 TAKE 1 TABLET DAILY 11/01/2015 07/25/2016 Inactive Klor-Con M20 mEq tablet,extended release RxNorm: 0726536 TAKE 1 TABLET EVERY MORNING 11/01/2015 10/25/2016 Inactive Flonase Allergy Relief 50 mcg/actuation nasal spray,suspension RxNorm: 2 [place] NASAL daily 07/20/2015 No Stop Date Active Kenalog 40 mg/mL suspension for injection RxNorm: 6291408 Milliliter(s) Inj 02/02/2015 02/02/2015 Inactive Crestor 5 mg tablet RxNorm: 383600 1/2 Tablet(s) PO daily 10/05/2014 09/29/2015 Inactive metoprolol tartrate 100 mg tablet RxNorm: 679787 1 Tablet(s) PO BID 10/05/2014 12/28/2015 Inactive Plavix 75 mg tablet RxNorm: 735505 1 Tablet(s) PO daily 10/05/2014 03/07/2015 Inactive Klor-Con M20 mEq tablet,extended release RxNorm: 040753 1 Tablet(s) PO QAM 10/05/2014 10/31/2015 Inactive Lasix 40 mg tablet RxNorm: 1 Tablet(s) PO daily 10/05/2014 10/31/2015 Inactive Efudex 5 % topical cream RxNorm: 132877 1 Application TOP BID x 2 weeks, allow healing x 1 -2 weeks, then reuse 10/05/2014 07/05/2015 Inactive Pradaxa 150 mg capsule RxNorm: 2654091 1 Capsule(s) PO BID 10/05/2014 04/09/2017 Inactive amlodipine 10 mg tablet RxNorm: 221977 1/2 Tablet(s) PO QAM 10/05/2014 07/05/2015 Inactive Efudex 5 % topical cream RxNorm: 753964 1 Application TOP BID x 2 weeks, allow healing x 1 -2 weeks, then reuse 09/22/2014 10/04/2014 Inactive Klor-Con M20 mEq tablet,extended release RxNorm: 079648 1 Tablet(s) PO QAM 09/22/2014 10/04/2014 Inactive Lasix 40 mg tablet RxNorm: 1 Tablet(s) PO daily 09/22/2014 10/04/2014 Inactive Cartia XT 180 mg capsule,extended release RxNorm: 700219 2 Capsule(s) PO daily No Start Date Active cetirizine 10 mg tablet RxNorm: 8892451 1 Tablet(s) PO daily at lunch No Start Date Active Canasa 1,000 mg rectal suppository RxNorm: 258633 [address]HS [address] seymour No Start Date Active Lialda 1.2 gram tablet,delayed release RxNorm: 952583 1 Tablet(s) PO QHS -Prescried by Dr. Seymour No Start Date Active Centrum Silver oral RxNorm: 06067 oral No Start Date Active Eliquis 5 mg tablet RxNorm: 1384748 1 Tablet(s) PO BID Dr Avila No Start Date Active aspirin 81 mg capsule,delayed release RxNorm: 161581 1 Capsule(s) PO daily No Start Date Active losartan 25 mg tablet RxNorm: 576218 1 Tablet(s) PO QPM at supper No Start Date Active digoxin 250 mcg tablet RxNorm: 281254 1 Tablet(s) PO daily No Start Date Active Vitamin D3 5,000 unit tablet RxNorm: 070308 1 Tablet(s) PO BID No Start Date Active Probiotic oral RxNorm: 6205 oral No Start Date Active Glucosamine Chondroit Complx Advan oral RxNorm: oral No Start Date Active Plavix 75 mg tablet RxNorm: 310025 1 Tablet(s) PO daily No Start Date 10/04/2014 Inactive Klor-Con M20 mEq tablet,extended release RxNorm: 385002 1 Tablet(s) PO QAM No Start Date 09/21/2014 Inactive Imodium oral RxNorm: oral No Start Date 11/22/2015 Inactive Lasix 40 mg tablet RxNorm: 074588 1 Tablet(s) PO daily No Start Date 09/21/2014 Inactive amlodipine 10 mg tablet RxNorm: 472269 1/2 Tablet(s) PO QAM No Start Date 10/04/2014 Inactive Crestor 5 mg tablet RxNorm: 542054 1/2 Tablet(s) PO daily No Start Date 10/04/2014 Inactive Flonase Allergy Relief 50 mcg/actuation nasal spray,suspension RxNorm: 1 [place] NASAL daily No Start Date 07/19/2015 Inactive metoprolol tartrate 100 mg tablet RxNorm: 525824 1 Tablet(s) PO BID No Start Date 10/04/2014 Inactive Probiotic 4X oral RxNorm: 1684814 oral No Start Date 07/06/2015 Inactive Pradaxa 150 mg capsule RxNorm: 0626253 1 Capsule(s) PO BID No Start Date 10/04/2014 Inactive Medication Administered Medication Codes Instructions Start Date Status ceftriaxone 500 mg solution for injection RxNorm: 5773363 02/06/2017 No longer Active Kenalog 40 mg/mL suspension for injection RxNorm: 2218981 1Milliliter 09/27/2016 No longer Active ceftriaxone 500 mg solution for injection RxNorm: 5448510 1Milliliter 09/27/2016 No longer Active Kenalog 40 mg/mL suspension for injection RxNorm: 0674375 Milliliter 02/02/2015 No longer Active Immunizations Vaccine Codes Date Status Influenza CVX: 141 01/10/2017 completed Influenza CVX: 141 01/07/2016 completed Influenza CVX: 141 12/01/2013 completed Zoster CVX: 121 04/02/2011 completed Pneumococcal CVX: 33 09/01/2007 completed Assessments Condition Codes Effective Dates Cough ICD-10: R05 ICD-9: 786.2 04/23/2017 Essential (primary) hypertension ICD-10: I10 ICD-9: 401.9 04/23/2017 Chronic obstructive pulmonary disease with acute lower respiratory infection ICD-10: J44.0 ICD-9: 491.22 04/10/2017 Hemoptysis ICD-10: R04.2 ICD-9: 786.30 04/10/2017 Acute laryngopharyngitis ICD-10: J06.0 ICD-9: 465.0 03/29/2017 Other allergic rhinitis ICD-10: J30.89 ICD-9: 477.8 03/29/2017 Pneumonia due to Mycoplasma pneumoniae ICD-10: J15.7 ICD-9: 041.81 02/06/2017 Other chest pain ICD-10: R07.89 ICD-9: 786.59 02/06/2017 Gastro-esophageal reflux disease without esophagitis ICD-10: K21.9 ICD-9: 530.81 11/06/2016 Shortness of breath ICD-10: R06.02 ICD-9: 786.05 11/06/2016 Acute bronchitis due to other specified organisms ICD-10: J20.8 ICD-9: 466.0 09/27/2016 Chronic atrial fibrillation ICD-10: I48.2 ICD-9: 427.31 03/21/2016 Encounter for therapeutic drug level monitoring [...] Visit Reason For Visit Effective Dates Notes Hospital Follow Up 04/23/2017 influenza, pneumonia, hypoxemia [...] Item Item Code Result Date Comp Metabolic Tsh737 NA 137 mEq/L 03/21/2016 Comp Metabolic Uxn831 K 4.6 mEq/L 03/21/2016 Comp Metabolic Nie533 CL 101 mEq/L 03/21/2016 Comp Metabolic Jsm623 CO2 31.0 mEq/L 03/21/2016 Comp Metabolic Ene886 ANION GAP 10 03/21/2016 Comp Metabolic Isp487 GLUCOSE 106 mg/dL 03/21/2016 Comp Metabolic Rgz584 Creat 1.1 mg/dL 03/21/2016 Comp Metabolic Oxu707 eGFR 69 ml/min/1.73m2 03/21/2016 Comp Metabolic Qwa082 BUN 11 mg/dL 03/21/2016 Comp Metabolic Cry143 B/C Ratio 9.9 Ratio 03/21/2016 Comp Metabolic Gjw917 CALCIUM 9.5 mg/dL 03/21/2016 Comp Metabolic Gce259 ALK PHOS 88 U/L 03/21/2016 Comp Metabolic Hyp131 AST(SGOT) 21 U/L 03/21/2016 Comp Metabolic Czs277 ALT(SGPT) 15 U/L 03/21/2016 Comp Metabolic Yyn818 BILI T 0.7 mg/dL 03/21/2016 Comp Metabolic Ole245 ALBUMIN 4.2 g/dL 03/21/2016 Comp Metabolic Hsy732 TPRO 7.9 g/dL 03/21/2016 Comp Metabolic Zlk558 GLOB 3.7 g/dL 03/21/2016 Comp Metabolic Vij962 A/G Ratio 1.1 Ratio 03/21/2016 Comp Metabolic Efl304 Osmo 274 mOsmo 03/21/2016 Lipid Ord30 CHOL [...] 31.3 pg 03/21/2016 Cbc With Differential Ord2 [place]% 10.3 % 03/21/2016 Cbc With Differential Ord2 [...] 2.51 K/ul 03/21/2016 Cbc With Differential Ord2 [place] ABS# 1.2 K/ul 03/21/2016 Cbc With Differential Ord2 Eos ABS# 0.7 K/ul 03/21/2016 Cbc With Differential Ord2 Baso ABS# 0.0 K/ul 03/21/2016 Clostridium Diff Tox A/B Tud789 Cdiff Negative 02/01/2016 Culture Mrsa [id number] MRSA CULTURE SEE NOTES 04/09/2015 Digoxin Ord9 [...] Ord65 HCT 39.4 % 03/30/2015 Comp Metabolic Mvg210 NA 142 mEq/L 03/11/2015 Comp Metabolic Phs752 K 4.4 mEq/L 03/11/2015 Comp Metabolic Jhr396 CL 107 mEq/L 03/11/2015 Comp Metabolic Lrl253 CO2 27.0 mEq/L 03/11/2015 Comp Metabolic Oyh145 ANION GAP 12 03/11/2015 Comp Metabolic Vku112 GLUCOSE 106 mg/dL 03/11/2015 Comp Metabolic Jxc582 Creat 1.1 mg/dL 03/11/2015 Comp Metabolic Gio228 eGFR 68 ml/min/1.73m2 03/11/2015 Comp Metabolic Xrp887 BUN 16 mg/dL 03/11/2015 Comp Metabolic Ukp543 B/C Ratio 14.3 Ratio 03/11/2015 Comp Metabolic Zqd769 CALCIUM 9.5 mg/dL 03/11/2015 Comp Metabolic Snb163 ALK PHOS 82 U/L 03/11/2015 Comp Metabolic Tff892 AST(SGOT) 20 U/L 03/11/2015 Comp Metabolic Nfo993 ALT(SGPT) 17 U/L 03/11/2015 Comp Metabolic Lrj877 BILI T 0.4 mg/dL 03/11/2015 Comp Metabolic Hcs338 ALBUMIN 4.0 g/dL 03/11/2015 Comp Metabolic Crg547 TPRO 6.9 g/dL 03/11/2015 Comp Metabolic Rnk882 GLOB 2.9 g/dL 03/11/2015 Comp Metabolic Cjz490 A/G Ratio 1.4 Ratio 03/11/2015 Comp Metabolic Ifk856 Osmo 285 mOsmo 03/11/2015 Digoxin Ord9 DIGOXIN 1.0 NG/ML 03/11/2015 [...] System Result Effective Dates Constitutional recent illness 04/23/2017 Constitutional No chills [...] inspection of skin Location: face 03/21/2016 right congregation, forehead, left congregation - irrirated actinic keratosis Full Exam - [...] inspection of skin Location: face 11/23/2015 right congregation, left congregation - irrirated actinic keratosis Full Exam - [...] inspection of skin Location: face 07/06/2015 right congregation, forehead, left congregation - irrirated actinic keratosis Full Exam - [...] Procedure Codes Date THER/PROPH/DIAG INJ SC/IM CPT-4: 30489 02/06/2017 ROCEPHIN, PER 250 MG CPT- 4: J0696 02/06/2017 ROCEPHIN, PER 250 MG CPT- 4: J0696 09/27/2016 TRIAMCINOLONE ACET INJ NOS CPT-4: J3301 09/27/2016 THER/PROPH/DIAG INJ SC/IM CPT-4: 96546 09/27/2016 DESTRUCT PREMALG LESION CPT-4: 74807 10/14/2015 DESTRUCT PREMALG LESION CPT-4: 29454 07/20/2015 DESTRUCT PREMALG LESION CPT-4: 62385 07/06/2015 DESTRUCT PREMALG LES 2-14 CPT-4: 98470 07/06/2015 TRIAMCINOLONE ACET INJ NOS CPT-4: J3301 02/02/2015 Vital Signs Date Vital 04/23/2017 Blood Pressure 1: 132/74 Code: 8480-6 BMI: 28.4 Code: 53481-0 Heart Rate 1: 78 bpm Height: 5'8" SpO2: 97% Weight: 187 lbs 04/10/2017 Blood Pressure 1: 126/68 Code: 8480-6 BMI: 29.5 Code: 34785-0 Heart Rate 1: 68 bpm Height: 5'8" SpO2: 92% Temperature: 37.5 (C) / 99.5 (F) Weight: 194 lbs 03/29/2017 Blood Pressure 1: 116/76 Code: 8480-6 BMI: 29.6 Code: 93507-0 Heart Rate 1: 61 bpm Height: 5'8" SpO2: 98% Weight: 195 lbs 02/06/2017 Blood Pressure 1: 130/74 Code: 8480-6 BMI: 30.4 Code: 83086-5 Heart Rate 1: 71 bpm Height: 5'8" SpO2: 98% Weight: 200 lbs 11/06/2016 Blood Pressure 1: 140/74 Code: 8480-6 BMI: 29.5 Code: 47865-1 Heart Rate 1: 76 bpm Height: 5'8" SpO2: 96% Weight: 194 lbs 09/27/2016 Blood Pressure 1: 138/78 Code: 8480-6 BMI: 29.6 Code: 30966-8 Heart Rate 1: 68 bpm Height: 5'8" SpO2: 97% Weight: 195 lbs 03/21/2016 Blood Pressure 1: 148/82 Code: 8480-6 BMI: 30.6 Code: 14735-1 Heart Rate 1: 67 bpm Height: 5'8" SpO2: 98% Weight: 201 lbs 02/01/2016 Blood Pressure 1: 128/86 Code: 8480-6 BMI: 30.3 Code: 04963-9 Heart Rate 1: 84 bpm Height: 5'8" SpO2: 96% Weight: 199 lbs 11/23/2015 Blood Pressure 1: 132/76 Code: 8480-6 BMI: 30.4 Code: 44172-8 Heart Rate 1: 81 bpm Height: 5'8" SpO2: 98% Weight: 200 lbs 10/14/2015 Blood Pressure 1: 120/80 Code: 8480-6 BMI: 30.4 Code: 09024-9 Heart Rate 1: 87 bpm Height: 5'8" SpO2: 97% Weight: 200 lbs 07/20/2015 Blood Pressure 1: 132/84 Code: 8480-6 BMI: 31.0 Code: 64364-8 Heart Rate 1: 78 bpm Height: 5'8" SpO2: 96% Weight: 204 lbs 07/06/2015 Blood Pressure 1: 130/78 Code: 8480-6 BMI: 31.0 Code: 34534-0 Heart Rate 1: 80 bpm Height: 5'8" SpO2: 98% Weight: 204 lbs 03/29/2015 Blood Pressure 1: 132/82 Code: 8480-6 BMI: 29.6 Code: 84112-0 Heart Rate 1: 76 bpm Height: 5'8" SpO2: 96% Weight: 195 lbs 03/08/2015 Blood Pressure 1: 126/84 Code: 8480-6 BMI: 30.2 Code: 05886-4 Heart Rate 1: 101 bpm Height: 5'8" SpO2: 98% Weight: 198 lbs 8 oz 02/02/2015 Blood Pressure 1: 132/86 Code: 8480-6 Heart Rate 1: 86 bpm SpO2: 98% Temperature: 36.6 (C) / 97.8 (F) Weight: 198 lbs 09/22/2014 Blood Pressure 1: 128/80 Code: 8480-6 BMI: 29.3 Code: 25107-5 Heart Rate 1: 85 bpm Height: 5'8" SpO2: 98% Weight: 193 lbs Functional Status No Functional Status data History of Present Illness Symptom Name Status Result Effective Date Notes Hospital Follow Up _ infection 04/23/2017 None [...] data Encounters Encounter Performer Location Codes Date ([id number]) 76727 EST. PATIENT, LEVEL III Diagnosis: Essential (primary) hypertension[ICD10: I10] Diagnosis: Cough[ICD10: R05] Steffany Parsons MD, [facility] CPT-4: 87163 04/23/2017 [id number]) 23506 EST. PATIENT, LEVEL IV Diagnosis: Hemoptysis[ICD10: R04.2] Diagnosis: Essential (primary) hypertension[ICD10: I10] Diagnosis: Chronic obstructive pulmonary disease with acute lower respiratory infection[ICD10: J44.0] [facility] CPT-4: 94393 04/10/2017 84554 EST. PATIENT, LEVEL III Diagnosis: Acute laryngopharyngitis[ICD10: J06.0] Diagnosis: Other allergic rhinitis[ICD10: J30.89] Sandra Parsons MD, [facility] CPT- 4: 73982 03/29/2017 ([id number]) 60604 EST. PATIENT, LEVEL III Diagnosis: Pneumonia due to Mycoplasma pneumoniae[ICD10: J15.7] Diagnosis: Cough[ICD10: R05] Diagnosis: Other chest pain[ICD10: R07.89] Steffany Parsons MD [facility] CPT-4: 31645 02/06/2017 81096 EST. PATIENT, LEVEL IV Diagnosis: Cough[ICD10: R05] Diagnosis: Shortness of breath[ICD10: R06.02] Diagnosis: Gastro-esophageal reflux disease without esophagitis[ICD10: K21.9] Sandra Parsons MD, [facility] CPT-4: 03364 11/06/2016 46422 EST. PATIENT, LEVEL IV Diagnosis: Other allergic rhinitis[ICD10: J30.89] Diagnosis: Acute bronchitis due to other specified organisms[ICD10: J20.8] Sandra Parsons MD, [facility] CPT-4: 98907 09/27/2016 ([id number]) 70817 EST. PATIENT, LEVEL IV Diagnosis: Essential (primary) hypertension[ICD10: I10] Diagnosis: Chronic atrial fibrillation[ICD10: I48.2] Diagnosis: Encounter for therapeutic drug level monitoring[ICD10: Z51.81] Steffany Parsons MD [facility] CPT-4: 59095 03/21/2016 ([id number]) 65752 EST. 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 PATIENT, LEVEL III Diagnosis: Allergic rhinitis due to pollen[ICD10: J30.1] Diagnosis: Actinic keratosis[ICD10: L57.0] Lucrecia Parsons MD, [facility] CPT-4: 44727 10/14/2015 ([id number]) 31322 EST. PATIENT, LEVEL IV Diagnosis: Essential (primary) hypertension[ICD10: I10] Diagnosis: Chronic atrial fibrillation[ICD10: I48.2] Steffany Parsons MD, [facility] CPT-4: 59332 07/06/2015 [id number] EST. PATIENT, LEVEL III Diagnosis: Essential (primary) hypertension[ICD10: I10] Diagnosis: Chronic atrial fibrillation[ICD10: I48.2] Diagnosis: Shortness of breath[ICD10: R06.02] Diagnosis: Melena[ICD10: K92.1] Sandra Parsons MD, [facility] CPT-4: 30216 03/29/2015 ([id number]) 03518 EST. PATIENT, LEVEL IV Diagnosis: Essential (primary) hypertension[ICD10: I10] Diagnosis: Chronic atrial fibrillation[ICD10: I48.2] Diagnosis: Cough[ICD10: R05] Steffany Parsons MD, [facility] CPT-4: 23541 03/08/2015 ([id number]) 31071 EST. PATIENT, LEVEL III Diagnosis: Other seasonal allergic rhinitis[ICD10: J30.2] Diagnosis: Other lesions of oral mucosa[ICD10: K13.79] Lucrecia Parsons MD, [facility] CPT-4: 02123 02/02/2015 ([id number]) OFFICE VISIT, NEW - LEVEL 4 Diagnosis: ESSENTIAL HYPERTENSION[ICD9: 401.9] Diagnosis: HYPERLIPIDEMIA[ICD9: 272.4] Diagnosis: ACTINIC KERATOSIS[ICD9: 702.0] Steffany Parsons MD, [facility] CPT-4: 88694 09/22/2014 Plan of Care Planned Activity Notes [...] resolved finish breathing treatments. 04/23/2017 Appointment: Steffany Parsnos WPtel: [phone] [facility] (15 min) Moderate 04/23/2017 Patient Education: Patient Medication Summary Completed 04/23/2017 Visit Plan: Hemoptysis and COPD exacerbation - continue with antibiotics, rx for antifungal tablet and suspension. chest xray ordered, monitor symptoms. Pt to stop aspirin x 1 week, continue with eliquis. call if s ymptoms are not improving. rx for phenergan with codeine. 04/10/2017 Appointment: Steffany Parsons WPtel: [phone] [facility] (15 min) Moderate 04/10/2017 Patient Education: [...] spray. 03/29/2017 Appointment: Sandra Tim WPtel: [phone] [facility] (15 min) Moderate 03/29/2017 Patient Education: Patient Medication Summary Completed 03/29/2017 Visit Plan: Pneumonia - Pt has been diagnosed with pneumonia by physical exam. A chest xray has been ordered as have antibiotics. The pt is aware of the diagnosis and the need for acute treatment of this illness. Cough - rx for promethazine/codeine syrup for cough. 02/06/2017 Appointment: Steffany Parsons WPtel: [phone] [facility] (15 min) Moderate 02/06/2017 Patient Education: [...] not improving. 11/06/2016 Appointment: Sandra Tim WPtel: [facility] (15 min) Moderate 11/06/2016 Patient Education: Patient [...] acutely worsen. 09/27/2016 Appointment: Sandra Tim WPtel: [facility] (30 min) Complex 09/27/2016 Patient Education: Patient [...] becoming uncontrolled. 03/21/2016 Appointment: Steffany Parsons WPtel: [facility] (15 min) Moderate 03/21/2016 Patient Education: Patient Medication Summary Completed 03/21/2016 Patient Education: Obesity Completed 03/21/2016 Visit Plan: Diarrhea-recent abx use-check stool for cdiff-increase probiotic to twice daily-bland diet advance as tolerated-call if symptoms do not resolve or if any worse. Patient verbalized understanding of plan. 02/01/2016 Appointment: Lucrecia Yeager WPtel: [facility] (15 min) Moderate 02/01/2016 Patient Education: Patient Medication Summary Completed 02/01/2016 Patient Education: Obesity Completed 02/01/2016 Referral: Alexi Honeycutt [address] Info faxed Completed 11/27/2015 Visit Plan: [...] Summary Completed 11/23/2015 Appointment: Steffany Parsons WPtel: [facility] [address] (15 min) Moderate 11/15/2015 Visit Plan: [...] not heal 10/14/2015 Appointment: Lucrecia Yeager WPtel: [phone] [facility] [place] [address] (15 min) Moderate 10/14/2015 Patient Education: Patient [...] acute concerns. 07/20/2015 Appointment: Lucrecia Yeager WPtel: [facility]7 [facility] [place] [address] (30 min) Complex 07/20/2015 Patient Education: Patient [...] concerns. 07/06/2015 Appointment: Steffany Parsons WPtel: [phone] [facility] (15 min) Moderate 07/06/2015 Patient Education: Patient [...] - pt has an upcoming appointment with campaign management specialist to possibly have an ablation done. [...] Patient Education: Hypertension Completed 03/08/2015 [facility] [facility] Completed 02/13/2015 Visit Plan: Allergies [...] 02/02/2015 Care Plan: Referral Order SNOMED-CT : [id number] Ordered 02/02/2015 Visit Plan: Hypertension - well [...] not improving. 09/22/2014 Appointment: Steffany Parsons WPtel: [address] [place], [place] [id number] [place] ([place]) New Patient 09/22/2014 Patient Education: Patient Medication Summary Completed 09/22/2014 Patient Education: Hypertension Completed 09/22/2014 [id number] [facility] Initiated Instructions Comment . Hemoptysis and COPD exacerbation - continue with antibiotics, rx for antifungal tablet and suspension. chest xray ordered, monitor symptoms. Pt to stop aspirin x 1 week, continue with eliquis. call if symptoms are not improving. rx for phenergan with codeine. . Hypertension - well controlled - continue [...] - pt has an upcoming appointment with campaign management specialist to possibly have an ablation done. [...] worse. Patient verbalized understanding of plan. . Pneumonia - Pt has been diagnosed [...] Dr Honeycutt for evaluation and biopsy . Cough, shortness of breath - ongoing [...]
--- OUTSIDE RECORDS SUMMARY | 2018-08-31 19:34 | XMS REPORT | CCD ---
Author Author Steffany Parsons Organization [facility] Address [address] [place] [address] Phone Care Team Providers Care Director Payment Name Role Phone PP Unavailable CCM Unavailable Summary Purpose Interface Exchange Insurance Providers Payer name Policy type / Coverage type Covered green party ID Effective Begin Date Effective End Date [facility] Commercial Insurance [id number] Unknown Unknown Family history Runs in the family Diagnosis Age At Onset Hypertension Unknown Social History Social History Element Codes Description Effective Dates Marital status Unknown Mary 02/06/2017 Number of children Unknown 5 09/22/[address]: 1106928 Quit over 10 years ago 09/22/[address]: 775188242 Never drinks alcohol 09/22/2014 Allergies, Adverse Reactions, [...] Start Date Stop Date Status Fill Instructions Diflucan 150 mg tablet RxNorm: 751316 1 Tablet(s) PO daily 04/10/2017 04/16/2017 Inactive Bactrim DS 800 mg-160 mg tablet RxNorm: 511207 1 Tablet(s) PO BID 04/10/2017 04/16/2017 Inactive nystatin 100,000 unit/mL oral suspension RxNorm: 899555 5 Milliliter(s) PO QID 04/10/2017 04/19/2017 Inactive cefdinir 300 mg capsule RxNorm: 619629 1 Capsule(s) PO BID 03/28/2017 04/06/2017 Inactive cefdinir 300 mg capsule RxNorm: 343624 1 Capsule(s) PO BID 02/06/2017 02/15/2017 Inactive ceftriaxone 500 mg solution for injection RxNorm: 7978338 Inj 02/06/2017 02/06/2017 Inactive omeprazole 20 mg tablet,delayed release RxNorm: 900274 1 Tablet(s) PO daily 11/06/2016 12/05/2016 Inactive Phenergan with Codeine Syrup RxNorm: 5 Milliliter(s) PO QID as needed 10/30/2016 No Stop Date Active Tessalon Perles 100 mg capsule RxNorm: 304075 1-2 Capsule(s) PO TID as needed cough 10/30/2016 11/08/2016 Inactive Klor-Con M20 mEq tablet,extended release RxNorm: 1107210 TAKE 1 TABLET EVERY MORNING 10/26/2016 No Stop Date Active ceftriaxone 500 mg solution for injection RxNorm: 7181833 1 Milliliter(s) Inj 09/27/2016 09/27/2016 Inactive Phenergan with Codeine Syrup RxNorm: 5 Milliliter(s) PO QID as needed 09/27/2016 10/29/2016 Inactive Tessalon Perles 100 mg capsule RxNorm: 027860 1-2 Capsule(s) PO TID as needed cough 09/27/2016 09/29/2016 Inactive Kenalog 40 mg/mL suspension for injection RxNorm: 9013868 1 Milliliter(s) Inj 09/27/2016 09/27/2016 Inactive Flagyl 500 mg tablet RxNorm: 786812 1 Tablet(s) PO TID 2016 08/05/2016 Inactive Lasix 40 mg tablet RxNorm: 829154 TAKE 1 TABLET DAILY 07/26/2016 No Stop Date Active Zithromax 250 mg tablet RxNorm: 596319 [address] day and 1 tab po on day 2-5 Tablet(s) PO 03/28/2016 03/27/2016 Inactive zpack x 1 Zithromax 250 mg tablet RxNorm: 589072 [address] day and 1 tab po on day 2-5 Tablet(s) PO 03/28/2016 04/01/2016 Inactive zpack x 1 Flagyl 500 mg tablet RxNorm: 936324 1 Tablet(s) PO TID 02/07/2016 02/06/2016 Inactive Flagyl 500 mg tablet RxNorm: 146247 1 Tablet(s) PO TID 02/07/2016 02/16/2016 Inactive Zyrtec-D 5 mg-120 mg tablet,extended release RxNorm: 1793727 1 Tablet(s) PO daily as needed allergies 11/23/2015 No Stop Date Active Imodium A-D 2 mg tablet RxNorm: 169645 1/2 Tablet(s) PO daily 11/23/2015 No Stop Date Active Mucinex 600 mg tablet, extended release RxNorm: 490019 1 Tablet(s) PO BID as needed 11/23/2015 01/21/2016 Inactive Lasix 40 mg tablet RxNorm: 903561 TAKE 1 TABLET DAILY 11/01/2015 07/25/2016 Inactive Klor-Con M20 mEq tablet,extended release RxNorm: 8937861 TAKE 1 TABLET EVERY MORNING 11/01/2015 10/25/2016 Inactive Flonase Allergy Relief 50 mcg/actuation nasal spray,suspension RxNorm: 2 [place] NASAL daily 07/20/2015 No Stop Date Active Kenalog 40 mg/mL suspension for injection RxNorm: 5751106 Milliliter(s) Inj 02/02/2015 02/02/2015 Inactive Crestor 5 mg tablet RxNorm: 164278 1/2 Tablet(s) PO daily 10/05/2014 09/29/2015 Inactive metoprolol tartrate 100 mg tablet RxNorm: 391592 1 Tablet(s) PO BID 10/05/2014 12/28/2015 Inactive Plavix 75 mg tablet RxNorm: 016423 1 Tablet(s) PO daily 10/05/2014 03/07/2015 Inactive Klor-Con M20 mEq tablet,extended release RxNorm: 037435 1 Tablet(s) PO QAM 10/05/2014 10/31/2015 Inactive Lasix 40 mg tablet RxNorm: 1 Tablet(s) PO daily 10/05/2014 10/31/2015 Inactive Efudex 5 % topical cream RxNorm: 810546 1 Application TOP BID x 2 weeks, allow healing x 1 -2 weeks, then reuse 10/05/2014 07/05/2015 Inactive Pradaxa 150 mg capsule RxNorm: 5919999 1 Capsule(s) PO BID 10/05/2014 04/09/2017 Inactive amlodipine 10 mg tablet RxNorm: 493620 1/2 Tablet(s) PO QAM 10/05/2014 07/05/2015 Inactive Efudex 5 % topical cream RxNorm: 167984 1 Application TOP BID x 2 weeks, allow healing x 1 -2 weeks, then reuse 09/22/2014 10/04/2014 Inactive Klor-Con M20 mEq tablet,extended release RxNorm: 655472 1 Tablet(s) PO QAM 09/22/2014 10/04/2014 Inactive Lasix 40 mg tablet RxNorm: 1 Tablet(s) PO daily 09/22/2014 10/04/2014 Inactive Cartia XT 180 mg capsule,extended release RxNorm: 830493 2 Capsule(s) PO daily No Start Date Active cetirizine 10 mg tablet RxNorm: 3176751 1 Tablet(s) PO daily at lunch No Start Date Active Canasa 1,000 mg rectal suppository RxNorm: 902817 [address] seymour No Start Date Active Lialda 1.2 gram tablet,delayed release RxNorm: 460929 1 Tablet(s) PO QHS -Prescried by Dr. Seymour No Start Date Active Centrum Silver oral RxNorm: 16699 oral No Start Date Active Eliquis 5 mg tablet RxNorm: 1972814 1 Tablet(s) PO BID Dr Avila No Start Date Active aspirin 81 mg capsule,delayed release RxNorm: 052169 1 Capsule(s) PO daily No Start Date Active losartan 25 mg tablet RxNorm: 792068 1 Tablet(s) PO QPM at supper No Start Date Active digoxin 250 mcg tablet RxNorm: 677651 1 Tablet(s) PO daily No Start Date Active Vitamin D3 5,000 unit tablet RxNorm: 840180 1 Tablet(s) PO BID No Start Date Active Probiotic oral RxNorm: 6205 oral No Start Date Active Glucosamine Chondroit Complx Advan oral RxNorm: oral No Start Date Active Plavix 75 mg tablet RxNorm: 749874 1 Tablet(s) PO daily No Start Date 10/04/2014 Inactive Klor-Con M20 mEq tablet,extended release RxNorm: 834361 1 Tablet(s) PO QAM No Start Date 09/21/2014 Inactive Imodium oral RxNorm: oral No Start Date 11/22/2015 Inactive Lasix 40 mg tablet RxNorm: 410795 1 Tablet(s) PO daily No Start Date 09/21/2014 Inactive amlodipine 10 mg tablet RxNorm: 977861 1/2 Tablet(s) PO QAM No Start Date 10/04/2014 Inactive Crestor 5 mg tablet RxNorm: 249733 1/2 Tablet(s) PO daily No Start Date 10/04/2014 Inactive Flonase Allergy Relief 50 mcg/actuation nasal spray,suspension RxNorm: 1 [place] NASAL daily No Start Date 07/19/2015 Inactive metoprolol tartrate 100 mg tablet RxNorm: 404597 1 Tablet(s) PO BID No Start Date 10/04/2014 Inactive Probiotic 4X oral RxNorm: 6145581 oral No Start Date 07/06/2015 Inactive Pradaxa 150 mg capsule RxNorm: 4171443 1 Capsule(s) PO BID No Start Date 10/04/2014 Inactive Medication Administered Medication Codes Instructions Start Date Status ceftriaxone 500 mg solution for injection RxNorm: 3060818 02/06/2017 No longer Active Kenalog 40 mg/mL suspension for injection RxNorm: 8469617 1Milliliter 09/27/2016 No longer Active ceftriaxone 500 mg solution for injection RxNorm: 9146567 1Milliliter 09/27/2016 No longer Active Kenalog 40 mg/mL suspension for injection RxNorm: 9126289 Milliliter 02/02/2015 No longer Active Immunizations Vaccine [...] Item Item Code Result Date Comp Metabolic Mpb377 NA 137 mEq/L 03/21/2016 Comp Metabolic Stl981 K 4.6 mEq/L 03/21/2016 Comp Metabolic Brd473 CL 101 mEq/L 03/21/2016 Comp Metabolic Dug946 CO2 31.0 mEq/L 03/21/2016 Comp Metabolic Fpu462 ANION GAP 10 03/21/2016 Comp Metabolic Hro081 GLUCOSE 106 mg/dL 03/21/2016 Comp Metabolic Snv085 Creat 1.1 mg/dL 03/21/2016 Comp Metabolic Huq313 eGFR 69 ml/min/1.73m2 03/21/2016 Comp Metabolic Fao736 BUN 11 mg/dL 03/21/2016 Comp Metabolic Puz371 B/C Ratio 9.9 Ratio 03/21/2016 Comp Metabolic Bme610 CALCIUM 9.5 mg/dL 03/21/2016 Comp Metabolic Xni462 ALK PHOS 88 U/L 03/21/2016 Comp Metabolic Mfg656 AST(SGOT) 21 U/L 03/21/2016 Comp Metabolic Uqh721 ALT(SGPT) 15 U/L 03/21/2016 Comp Metabolic Yvk016 BILI T 0.7 mg/dL 03/21/2016 Comp Metabolic Qim103 ALBUMIN 4.2 g/dL 03/21/2016 Comp Metabolic Awt555 TPRO 7.9 g/dL 03/21/2016 Comp Metabolic Wpq307 GLOB 3.7 g/dL 03/21/2016 Comp Metabolic Fqr931 A/G Ratio 1.1 Ratio 03/21/2016 Comp Metabolic Ybt291 Osmo 274 mOsmo 03/21/2016 Lipid Ord30 CHOL [...] 20.9 % 03/21/2016 Cbc With Differential Ord2 Sargent% 10.3 % 03/21/2016 Cbc With Differential Ord2 [...] 2.51 K/ul 03/21/2016 Cbc With Differential Ord2 Sargent ABS# 1.2 K/ul 03/21/2016 Cbc With Differential Ord2 Eos ABS# 0.7 K/ul 03/21/2016 Cbc With Differential Ord2 Baso ABS# 0.0 K/ul 03/21/2016 Clostridium Diff Tox A/B Gjd051 Cdiff Negative 02/01/2016 Culture Mrsa [id number] MRSA CULTURE SEE NOTES 04/09/2015 Digoxin Ord9 [...] Ord65 HCT 39.4 % 03/30/2015 Comp Metabolic Efv703 NA 142 mEq/L 03/11/2015 Comp Metabolic Cby035 K 4.4 mEq/L 03/11/2015 Comp Metabolic Ahk367 CL 107 mEq/L 03/11/2015 Comp Metabolic Zer578 CO2 27.0 mEq/L 03/11/2015 Comp Metabolic Hcj315 ANION GAP 12 03/11/2015 Comp Metabolic Uct014 GLUCOSE 106 mg/dL 03/11/2015 Comp Metabolic Xmr813 Creat 1.1 mg/dL 03/11/2015 Comp Metabolic Gzm880 eGFR 68 ml/min/1.73m2 03/11/2015 Comp Metabolic Cpo743 BUN 16 mg/dL 03/11/2015 Comp Metabolic Cux433 B/C Ratio 14.3 Ratio 03/11/2015 Comp Metabolic Yty708 CALCIUM 9.5 mg/dL 03/11/2015 Comp Metabolic Hnq401 ALK PHOS 82 U/L 03/11/2015 Comp Metabolic Jvi636 AST(SGOT) 20 U/L 03/11/2015 Comp Metabolic Tta870 ALT(SGPT) 17 U/L 03/11/2015 Comp Metabolic Xza798 BILI T 0.4 mg/dL 03/11/2015 Comp Metabolic Tno095 ALBUMIN 4.0 g/dL 03/11/2015 Comp Metabolic Nfh468 TPRO 6.9 g/dL 03/11/2015 Comp Metabolic Rln507 GLOB 2.9 g/dL 03/11/2015 Comp Metabolic Aox585 A/G Ratio 1.4 Ratio 03/11/2015 Comp Metabolic Bfo052 Osmo 285 mOsmo 03/11/2015 Digoxin Ord9 DIGOXIN [...] inspection of skin Location: face 03/21/2016 right quaker, forehead, left quaker - irrirated actinic keratosis Full Exam - [...] inspection of skin Location: face 11/23/2015 right quaker, left quaker - irrirated actinic keratosis Full Exam - [...] inspection of skin Location: face 07/06/2015 right quaker, forehead, left quaker - irrirated actinic keratosis Full Exam - [...] Procedure Codes Date THER/PROPH/DIAG INJ SC/IM CPT-4: 14654 02/06/2017 ROCEPHIN, PER 250 MG CPT- 4: J0696 02/06/2017 ROCEPHIN, PER 250 MG CPT- 4: J0696 09/27/2016 TRIAMCINOLONE ACET INJ NOS CPT-4: J3301 09/27/2016 THER/PROPH/DIAG INJ SC/IM CPT-4: 75990 09/27/2016 DESTRUCT PREMALG LESION CPT-4: 62223 10/14/2015 DESTRUCT PREMALG LESION CPT-4: 40209 07/20/2015 DESTRUCT PREMALG LESION CPT-4: 62229 07/06/2015 DESTRUCT PREMALG LES 2-14 CPT-4: 67657 07/06/2015 TRIAMCINOLONE ACET INJ NOS CPT-4: J3301 02/02/2015 Vital Signs Date Vital 04/23/2017 Blood Pressure 1: 132/74 Code: 8480-6 BMI: 28.4 Code: 44045-4 Heart Rate 1: 78 bpm Height: 5'8" SpO2: 97% Weight: 187 lbs 04/10/2017 Blood Pressure 1: 126/68 Code: 8480-6 BMI: 29.5 Code: 46518-4 Heart Rate 1: 68 bpm Height: 5'8" SpO2: 92% Temperature: 37.5 (C) / 99.5 (F) Weight: 194 lbs 03/29/2017 Blood Pressure 1: 116/76 Code: 8480-6 BMI: 29.6 Code: 25198-3 Heart Rate 1: 61 bpm Height: 5'8" SpO2: 98% Weight: 195 lbs 02/06/2017 Blood Pressure 1: 130/74 Code: 8480-6 BMI: 30.4 Code: 46041-2 Heart Rate 1: 71 bpm Height: 5'8" SpO2: 98% Weight: 200 lbs 11/06/2016 Blood Pressure 1: 140/74 Code: 8480-6 BMI: 29.5 Code: 83834-2 Heart Rate 1: 76 bpm Height: 5'8" SpO2: 96% Weight: 194 lbs 09/27/2016 Blood Pressure 1: 138/78 Code: 8480-6 BMI: 29.6 Code: 23251-0 Heart Rate 1: 68 bpm Height: 5'8" SpO2: 97% Weight: 195 lbs 03/21/2016 Blood Pressure 1: 148/82 Code: 8480-6 BMI: 30.6 Code: 39356-0 Heart Rate 1: 67 bpm Height: 5'8" SpO2: 98% Weight: 201 lbs 02/01/2016 Blood Pressure 1: 128/86 Code: 8480-6 BMI: 30.3 Code: 70256-9 Heart Rate 1: 84 bpm Height: 5'8" SpO2: 96% Weight: 199 lbs 11/23/2015 Blood Pressure 1: 132/76 Code: 8480-6 BMI: 30.4 Code: 94954-7 Heart Rate 1: 81 bpm Height: 5'8" SpO2: 98% Weight: 200 lbs 10/14/2015 Blood Pressure 1: 120/80 Code: 8480-6 BMI: 30.4 Code: 32613-3 Heart Rate 1: 87 bpm Height: 5'8" SpO2: 97% Weight: 200 lbs 07/20/2015 Blood Pressure 1: 132/84 Code: 8480-6 BMI: 31.0 Code: 46847-2 Heart Rate 1: 78 bpm Height: 5'8" SpO2: 96% Weight: 204 lbs 07/06/2015 Blood Pressure 1: 130/78 Code: 8480-6 BMI: 31.0 Code: 01112-1 Heart Rate 1: 80 bpm Height: 5'8" SpO2: 98% Weight: 204 lbs 03/29/2015 Blood Pressure 1: 132/82 Code: 8480-6 BMI: 29.6 Code: 69864-5 Heart Rate 1: 76 bpm Height: 5'8" SpO2: 96% Weight: 195 lbs 03/08/2015 Blood Pressure 1: 126/84 Code: 8480-6 BMI: 30.2 Code: 32948-6 Heart Rate 1: 101 bpm Height: 5'8" SpO2: 98% Weight: 198 lbs 8 oz 02/02/2015 Blood Pressure 1: 132/86 Code: 8480-6 Heart Rate 1: 86 bpm SpO2: 98% Temperature: 36.6 (C) / 97.8 (F) Weight: 198 lbs 09/22/2014 Blood Pressure 1: 128/80 Code: 8480-6 BMI: 29.3 Code: 31069-4 Heart Rate 1: 85 bpm Height: 5'8" [...] data Encounters Encounter Performer Location Codes Date ([id number]) 32183 EST. PATIENT, LEVEL III Diagnosis: Essential (primary) hypertension[ICD10: I10] Diagnosis: Cough[ICD10: R05] [facility] CPT-4: 97436 04/23/2017 ([id number]) 12876 EST. PATIENT, LEVEL IV Diagnosis: Hemoptysis[ICD10: R04.2] Diagnosis: Essential (primary) hypertension[ICD10: I10] Diagnosis: Chronic obstructive pulmonary disease with acute lower respiratory infection[ICD10: J44.0] [facility] CPT-4: 46674 04/10/2017 93414 EST. PATIENT, LEVEL III Diagnosis: Acute laryngopharyngitis[ICD10: J06.0] Diagnosis: Other allergic rhinitis[ICD10: J30.89] [facility] CPT- 4: 98426 03/29/2017 ([id number]) 04885 EST. PATIENT, LEVEL III Diagnosis: Pneumonia due to Mycoplasma pneumoniae[ICD10: J15.7] Diagnosis: Cough[ICD10: R05] Diagnosis: Other chest pain[ICD10: R07.89] Steffany Parsons MD, [facility] CPT-4: 67709 02/06/2017 12686 EST. PATIENT, LEVEL IV Diagnosis: Cough[ICD10: R05] Diagnosis: Shortness of breath[ICD10: R06.02] Diagnosis: Gastro-esophageal reflux disease without esophagitis[ICD10: K21.9] Sandra Parsons MD, [facility] CPT-4: 24165 11/06/2016 88572 EST. PATIENT, LEVEL IV Diagnosis: Other allergic rhinitis[ICD10: J30.89] Diagnosis: Acute bronchitis due to other specified organisms[ICD10: J20.8] Sandra Parsons MD, [facility] CPT-4: 35407 09/27/2016 ([id number]) 44227 EST. PATIENT, LEVEL IV Diagnosis: Essential (primary) hypertension[ICD10: I10] Diagnosis: Chronic atrial fibrillation[ICD10: I48.2] Diagnosis: Encounter for therapeutic drug level monitoring[ICD10: Z51.81] Steffany Parsons MD, [facility] CPT-4: 96600 03/21/2016 ([id number]) 06015 EST. 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 PATIENT, LEVEL III Diagnosis: Allergic rhinitis due to pollen[ICD10: J30.1] Diagnosis: Actinic keratosis[ICD10: L57.0] Lucrecia Parsons MD, [facility] CPT-4: 82873 10/14/2015 ([id number]) 52548 EST. PATIENT, LEVEL IV Diagnosis: Essential (primary) hypertension[ICD10: I10] Diagnosis: Chronic atrial fibrillation[ICD10: I48.2] Steffany Parsons MD, [facility] CPT-4: 70850 07/06/2015 06879 EST. PATIENT, LEVEL III Diagnosis: Essential (primary) hypertension[ICD10: I10] Diagnosis: Chronic atrial fibrillation[ICD10: I48.2] Diagnosis: Shortness of breath[ICD10: R06.02] Diagnosis: Melena[ICD10: K92.1] Sandra Parsons MD, [facility] CPT-4: 74495 03/29/2015 ([id number]) 85079 EST. PATIENT, LEVEL IV Diagnosis: Essential (primary) hypertension[ICD10: I10] Diagnosis: Chronic atrial fibrillation[ICD10: I48.2] Diagnosis: Cough[ICD10: R05] Steffany Parsons MD, [facility] CPT-4: 08143 03/08/2015 ([id number]) 60018 EST. PATIENT, LEVEL III Diagnosis: Other seasonal allergic rhinitis[ICD10: J30.2] Diagnosis: Other lesions of oral mucosa[ICD10: K13.79] Lucrecia Parsons MD, [facility] CPT-4: 03182 02/02/2015 ([id number]) OFFICE VISIT, NEW - LEVEL 4 Diagnosis: ESSENTIAL HYPERTENSION[ICD9: 401.9] Diagnosis: HYPERLIPIDEMIA[ICD9: 272.4] Diagnosis: ACTINIC KERATOSIS[ICD9: 702.0] Steffany Parsons MD, [facility] CPT-4: 69888 09/22/2014 Plan of Care Planned Activity Notes [...] breath - resolved finish breathing treatments. 04/23/2017 Patient Education: Patient Medication Summary Completed 04/23/2017 Visit Plan: Hemoptysis and COPD exacerbation - continue with antibiotics, rx for antifungal tablet and suspension. chest xray ordered, monitor symptoms. Pt to stop aspirin x 1 week, continue with eliquis. call if s ymptoms are not improving. rx for phenergan with codeine. 04/10/2017 Appointment: Steffany Parsons WPtel: [address] [place] [address] (15 min) Moderate 04/10/2017 Patient Education: Patient [...] allergy spray. 03/29/2017 Appointment: Sandra Tim WPtel: [facility] (15 min) Moderate 03/29/2017 Patient Education: Patient Medication Summary Completed 03/29/2017 Visit Plan: Pneumonia - Pt has been diagnosed with pneumonia by physical exam. A chest xray has been ordered as have antibiotics. The pt is aware of the diagnosis and the need for acute treatment of this illness. Cough - rx for promethazine/codeine syrup for cough. 02/06/2017 Appointment: Steffany Parsons WPtel: [address] [place], [place] [address] (15 min) Moderate 02/06/2017 Patient Education: Patient [...] improving. 11/06/2016 Appointment: Sandra Tim WPtel: [address] [facility] (15 min) Moderate 11/06/2016 Patient Education: [...] worsen. 09/27/2016 Appointment: Sandra Tim WPtel: [address] [facility] (30 min) Complex 09/27/2016 Patient Education: [...] uncontrolled. 03/21/2016 Appointment: Steffany Parsons WPtel: [address] [facility] (15 min) Moderate 03/21/2016 Patient Education: Patient Medication Summary Completed 03/21/2016 Patient Education: Obesity Completed 03/21/2016 Visit Plan: Diarrhea-recent abx use-check stool for cdiff-increase probiotic to twice daily-bland diet advance as tolerated-call if symptoms do not resolve or if any worse. Patient verbalized understanding of plan. 02/01/2016 Appointment: Lucrecia Yeager WPtel: [address] [place], [place] [phone] (15 min) Moderate 02/01/2016 Patient Education: Patient Medication Summary Completed 02/01/2016 Patient Education: Obesity Completed 02/01/2016 Referral: Tangela Alexi [facility]66[facility] Info faxed [...] Summary Completed 11/23/2015 Appointment: Steffany Parsons WPtel: [address] [place] [address] (15 min) Moderate 11/15/2015 Visit Plan: Allergies [...] not heal 10/14/2015 Appointment: Lucrecia Yeager WPtel: [facility] [place] [phone] [place] (15 min) Moderate 10/14/2015 Patient Education: Patient [...] acute concerns. 07/20/2015 Appointment: Lucrecia Yeager WPtel: [address] (30 min) Complex 07/20/2015 Patient Education: Patient [...] acute concerns. 07/06/2015 Appointment: Steffany Parsons WPtel: [facility]5 [facility] (15 min) Moderate 07/06/2015 Patient Education: Patient [...] - pt has an upcoming appointment with beverage specialist to possibly have an ablation done. [...] Patient Education: Hypertension Completed 03/08/2015 [facility] Ref[facility] Completed 02/13/2015 Visit Plan: Allergies [...] 02/02/2015 Care Plan: Referral Order SNOMED-CT : [id number] Ordered 02/02/2015 Visit Plan: Hypertension - well [...] lesions, call if not improving. 09/22/2014 Appointment: DawsonSteffany WPtel: [facility]5 [facility] [place] (S) New Patient 09/22/2014 Patient Education: Patient Medication Summary Completed 09/22/2014 Patient Education: Hypertension Completed 09/22/2014 Referral: Alexi Honeycutt [facility] Referral Initiated Instructions Comment . Hemoptysis and [...] - pt has an upcoming appointment with beverage specialist to possibly have an ablation done. [...]
[2018-08-31] MEDS ORDERED: VANCOMYCIN 1,750 MG/NS 500 ML IVPB IV SCH ×2 (20:00)
[2018-08-31] MEDS: NS IV 1000 ML 1,000 ML IV SCH (20:15)
[2018-08-31] MEDS: DILTIAZEM 300 MG (CARDIZEM CD) CAP PO SCH (20:52)
[2018-08-31] MEDS: APIXABAN 5 MG (ELIQUIS) TABLET PO SCH (20:52)
[2018-08-31] MEDS: DIGOXIN 0.25 MG (LANOXIN) TAB PO SCH (20:52)
[2018-08-31] MEDS ORDERED: NS IV 500 ML 500 ML ONE (22:00)
[2018-08-31] MEDS ORDERED: VANCOMYCIN 1000 MG/VIAL ONE (22:00)
[2018-08-31] MEDS: RT-ALBUTEROL/IPRATROPIUM 3 ML (DUONEB) VIAL INH PRN (22:40)
--- NOTE | 2018-08-31 23:17 | NUR ---
2233: RN CALLED THIS RT FOR PRN BREATHING TX, THIS RT CURRENTLY WITH ANOTHER PT 2240: RT TO ROOM, RN STATES SHE CHECKED PT SPO2 AND WAS LOW SO SHE INCREASED O2 TO 5LPM RIGHT BEFORE THIS RT ENTERED ROOM. PER RT PULSE OX PT SPO2 79% ON 5LPM. PT STARTED ON BREATHING TX WITH OXYGEN AND SPO2 INCREASES TO 83-84% DURING TX. 2250: PT PLACED ON BIPAP PER PROTOCOL, PT DOES WHERE HOME BIPAP BUT IS NOT CURRENTLY HERE WITH HIM. 2257: DR ESTEBAN UPDATED ON PT BY THIS RT. NO ADDITIONAL ORDERS RECEIVED.
[2018-09-01] VITALS (22 sets, daily range): BP systolic 127–149; BP diastolic 20–84
[2018-09-01] MEDS: RT-ALBUTEROL/IPRATROPIUM 3 ML (DUONEB) VIAL INH PRN (01:25)
[2018-09-01] MEDS: CEFEPIME 1,000 MG/SWFI 10 ML IV PUSH IV SCH ×8 (01:35→21:50)
[2018-09-01] MEDS ORDERED: RT-ALBUTEROL/IPRATROPIUM 3 ML (DUONEB) VIAL INH PRN (01:45)
--- NOTE | 2018-09-01 02:13 | NUR ---
0151- SPOKE WITH DR. ESTEBAN AND INFORMED HER THAT PT IS CURRENTLY ON BIPAP SETTINGS 16/10 90%FIO2 WITH INSPIRATORY AND EXPIRATORY CRACKLES AND SPO2 90-91%. ALSO INFORMED HER THAT WHEN RT ENTERED PTS ROOM PTS SPO2 WAS 84% BEFORE RT INCREASED SETTINGS. TELEPHONE ORDERS RECEIVED TO TRANSFER PT TO ICU AT THIS TIME. 0200- PT TO ROOM ICU-9. REPORT GIVEN TO BHARATI CASAREZ.
--- NOTE | 2018-09-01 02:22 | NUR ---
SPOKE WITH PTS AT THIS TIME AND INFORMED HER OF PTS CHANGE IN CONDITION AND THE NEED TO TRANSFER PT TO ICU.
--- NOTE | 2018-09-01 02:33 | NUR ---
Call to E ICU at this time to give report on patient. Request for nausea medication. Patient c/o nausea upon admission.
[2018-09-01 03:22] LABS: BASOPHILS % (AUTO) 0 % (0-10); EOSINOPHILS % (AUTO) 0 % (0-10); HEMATOCRIT 36 % (40-54); HEMOGLOBIN 11.8 G/DL (13.3-17.7); LYMPHOCYTES % (AUTO) 8 % (12-44); MEAN CORPUSCULAR HEMOGLOBIN 31 PG (25-34); MEAN CORPUSCULAR HGB CONC 33 G/DL (32-36); MEAN CORPUSCULAR VOLUME 95 FL (80-99); MEAN PLATELET VOLUME 9.6 FL (7.4-10.4); MONOCYTES # (AUTO) 1.2 X 10^3 (0.0-1.0); MONOCYTES % (AUTO) 9 % (0-12); NEUTROPHILS # (AUTO) 11.1 X 10^3 (1.8-7.8); NEUTROPHILS % (AUTO) 83 % (42-75); PLATELET COUNT 156 10^3/uL (130-400); RED CELL DISTRIBUTION WIDTH 14.9 % (10.0-14.5); WHITE BLOOD COUNT 13.4 10^3/uL (4.3-11.0)
[2018-09-01 03:31] LABS: ABG BASE EXCESS -0.4 MMOL/L (-2.5-2.5); ABG OXYGEN SATURATION 97 % (94-100); ABG PCO2 34 MMHG (35-45); ABG PH 7.45 (7.37-7.43); ABG PO2 75 MMHG (79-93); ABG TCO2 24.1 MMOL/L (21.0-31.0)
[2018-09-01 03:32] LABS: ALLENS TEST YES-POS; INSPIRED O2 80%; PATIENT TEMP 98.6; VENTILATOR NO
[2018-09-01 03:36] LABS: CALCIUM 8.6 MG/DL (8.5-10.1); CREATININE SERUM 1.2 MG/DL (0.60-1.30); MAGNESIUM 1.8 MG/DL (1.8-2.4); PHOSPHORUS 2.6 MG/DL (2.3-4.7); POTASSIUM 4.1 MMOL/L (3.6-5.0)
[2018-09-01] MEDS: KCL 20 MEQ TAB (K-DUR) PO SCH (03:40)
[2018-09-01] MEDS: POTASSIUM CL 10MEQ/50ML IVPB 50 ML IV SCH (03:40)
[2018-09-01] MEDS: MAGNESIUM 1 GM/100 ML IVPB 100 ML IV SCH (03:40)
[2018-09-01] MEDS ORDERED: ONDANSETRON 4 MG/2 ML (SDV) Z0FRAN IV PRN (03:45)
[2018-09-01] MEDS ORDERED: WATER (STERILE) FOR INJECTION 10 ML ONE (05:08)
[2018-09-01] MEDS ORDERED: CEFEPIME 1 GM (MAXIPIME) VIAL ONE (05:08)
--- OUTSIDE RECORDS SUMMARY | 2018-09-01 05:24 | XMS REPORT | Clinical Summary ---
Author Author [facility] Organization [facility] Address Unknown Phone Unavailable Care Team Providers Care Date Night Sitter Name Role Phone Steffany Parsons MD PCP Source Comments Some departments are not documenting in the electronic medical record. If you d o not see the information that you expected, contact Release of Information in [facility] Adtuitive Information Management department at [phone] for further assistan ce in locating additional records.[facility] Allergies Not on File Medications End Date Status Medication Sig Dispensed Refills Start Date Active rosuvastatin (CRESTOR) 5 Take 0.5 mg 0 mg tabletIndications: by mouth Paroxysmal atrial daily. 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 12/30/13: LHC: EF 45-50%. No PCI. Severe northway CAD. 03/22/15: LHC: Severe multivessel atherosclerotic CAD. Normal LV size. Mild LV dysfunction EF 45%. No evidence of HF at rest. Previously stented proximal and middle LAD, widely patent, with no in-stent restenosis. Coronary artery disease involving coronary bypass graft of [place] heart 03/15/2015 with angina pectoris HTN (hypertension) [...] Taken Vital Sign Reading 03/15/2015 3:03 PM WELDER/INSTALLER Blood Pressure 110/78 03/15/2015 3:03 PM WELDER/INSTALLER Pulse 94 - Temperature - - Respiratory Rate - - Oxygen Saturation - - Inhaled Oxygen - Concentration 03/15/2015 3:03 PM WELDER/INSTALLER Weight 88.9 kg (196 lb) 03/15/2015 3:03 PM WELDER/INSTALLER Height 171.5 cm (5' 7.5") 03/15/2015 3:03 PM WELDER/INSTALLER Body Mass Index 30.24 Plan of Treatment [...] file. For more information, valeri goff contact: [facility] [address] [place] [address]
--- NOTE | 2018-09-01 05:35 | Pulmonary Consultation ---
History of Present Illness History of Present Illness Date of Consultation 09/01/18 05:30 Time Seen by Provider: 05:30 Date of Admission History of Present Illness 78yo with hx of CHF, MN, BRIDGER with Bipap tx presented to ED secondary to worsening SOB, cough, and CP without radiation that started 0430. No N/V or diaphoresis. Pt is not normally on oxygen he was found to be hypoxic at 88%. Pt was admitted to 4th floor and continue to decline with worsening SOB. PT was given PRN SVN secondary to SOB and placed on BiPAP however continued to decline. Pt was transferred to ICU for closer monitoring. I am consulted for pulmonary/ICU management. Allergies and Home Medications Allergies Coded Allergies: Sulfa (Sulfonamide Antibiotics) (Verified Allergy, Unknown, 08/31/18) montelukast (Unverified Adverse Reaction, Unknown, 06/08/16) Hallucinations per pt Home Medications Apixaban 5 Mg Tablet, 5 MG PO BID restart on 09/13/18 Prescribed by: CODEY BARILLAS on 09/09/18 0936 Aspirin 81 Mg Tablet.dr, 81 MG PO DAILY restart on 09/13/18 Prescribed by: CODEY BARILLAS on 09/09/18 0936 Diltiazem HCl 300 Mg Cap.er.24h, 300 MG PO DAILY@0900 Prescribed by: CODEY BARILLAS on 09/09/18 0936 Fluticasone Propionate 16 Gm Shepherd.susp, 1 SPRAY NS BID PRN for ALLERGIES, (Reported) Furosemide 40 Mg Tablet, 40 MG PO DAILY, (Reported) Gluc HCl/Csa/Chato Hy/Hyalur AC 1 Each Capsule, 1 CAP PO 1800, (Reported) Ipratropium/Albuterol Sulfate 3 Ml Ampul.neb, 3 ML INH RTQ6HR scheduled 4times daily x 5days, every 2hours PRN short of air, after 5 days scheduled, use every 2hours PRN short of air Prescribed by: CODEY BARILLAS on 04/16/17 09 Lactobacillus Combination No.4 1 Each Capsule, 1 CAP PO BID, (Reported) Loperamide HCl 2 Mg Tablet, 1 MG PO BID, (Reported) TAKES 1/2 (2MG) TABLET Loratadine 10 Mg Tab.rapdis, 10 MG PO DAILY, (Reported) Losartan Potassium 25 Mg Tablet, 25 MG PO 1800, (Reported) Melatonin/Pyridoxine HCl (B6) 1 Each Tab.mphase, 1 EACH PO HS Prescribed by: CODEY BARILLAS on 09/13/18 0919 Mesalamine 1.2 Gm Tablet.dr, 2.4 GM PO HS, (Reported) TAKES 2 (1.2GM) TABLETS AT BEDTIME WITH FOOD Metoprolol Tartrate 100 Mg Tablet, 100 MG PO BID, (Reported) Multivit-Min/FA/Lycopene/Lut 1 Each Tablet, 1 TAB PO HS, (Reported) Potassium Chloride 20 Meq Tab.er.prt, 20 MEQ PO DAILY, (Reported) Rosuvastatin Calcium 5 Mg Tablet, 2.5 MG PO 1800, (Reported) TAKES 1/2 (5MG) TABLET Tamsulosin HCl 0.4 Mg Cap, 0.4 MG PO DAILY@1800 Prescribed by: CODEY BARILLAS on 09/09/18 0936 [vit D] , 5,000 DAILY, (Reported) Past Godofek-Tfdvyk-Sgsxuq Hx Past Med/Social Hx: Reviewed Nursing Past Med/Soc Hx Patient Social History Alcohol Use: Denies Use Recreational Drug Use: No Smoking Status: Former Smoker Type Used: Cigarettes Former Smoker, Quit: Dec 08, 1991 Recent Foreign Travel: No Contact w/Someone Who Travel: No Recent Infectious Disease Expo: No Recent Hopitalizations: No Immunizations Up To Date Date of Pneumonia Vaccine: August 05, 2018 Date of Influenza Vaccine: Jan 08, 2017 Seasonal Allergies Seasonal Allergies: Yes Past Medical History Surgeries: Yes (5 VESSEL CABG, PACEMAKER X2, STENTS X2, skin ca removal) Cardiac, CABG, Coronary Stent, Gallbladder, Pacemaker Respiratory: Yes (BI-PAP) Sleep Apnea, COPD Currently Using CPAP: No Currently Using BIPAP: No Cardiac: Yes (PACER, STENTS, BYPASS) Atrial Fibrillation, Coronary Artery Disease, High Cholesterol, Hypertension Neurological: No Reproductive Disorders: No Sexually Transmitted Disease: No HIV/AIDS: No Genitourinary: No Gastrointestinal: Yes (ULCERATIVE COLITIS) Colitis, Chronic Diarrhea, Polyps Musculoskeletal: No Endocrine: No HEENT: No Loss of Vision: Denies Hearing Impairment: Denies Cancer: Yes (SKIN CANCER) Skin, Melanoma Psychosocial: No Integumentary: Yes (melanoma) Blood Disorders: No Adverse Reaction/Blood Tranf: No (N/A) Family Medical History Reviewed Nursing Family Hx Arthritis Cardiovascular disease Kidney disease G8 BROTHER Leukemia G8 BROTHER Multiple myeloma Prostate cancer 19 FATHER Heart Disease, Hypertension Review of Systems Time Seen by Provider: 11:34 Sepsis Event Evaluation Height, Weight, BMI Height: 5'8.00" Weight: 198lbs. 8.0oz. 90.471893gf; 30.2 BMI Method:Stated Exam Exam Vital Signs Date Time Temp Pulse Resp B/P (MAP) Pulse Ox O2 Delivery O2 Flow Rate FiO2 09/01/18 05:00 60 25 145/70 (95) 93 NIV Bilevel 80.00 09/01/18 04:00 63 25 143/20 (61) 92 NIV Bilevel 80.00 09/01/18 03:25 98.6 09/01/18 03:25 64 26 94 80.00 09/01/18 03:00 60 21 134/66 (88) 94 NIV Bilevel 80.00 09/01/18 02:45 60 26 134/66 (88) 91 NIV Bilevel 80.00 09/01/18 02:35 92 NIV Bilevel 80 09/01/18 02:30 61 26 138/67 (90) 93 NIV Bilevel 80.00 09/01/18 02:19 NIV Bilevel 80.00 09/01/18 02:17 62 09/01/18 02:15 61 29 143/74 (97) 97 NIV Bilevel 100.00 09/01/18 02:00 100.9 73 26 143/74 (97) 96 NIV Bilevel 100.00 09/01/18 01:39 61 26 92 80.00 09/01/18 00:05 98.2 64 20 134/63 (86) 91 Nasal Cannula 4.00 08/31/18 22:52 63 28 92 60.00 08/31/18 22:52 92 NIV Bilevel 60 08/31/18 22:40 79 Nasal Cannula 5.00 08/31/18 19:30 Nasal Cannula 4.00 08/31/18 19:13 98.2 72 20 151/74 91 Nasal Cannula 4.00 08/31/18 18:21 63 93 32 08/31/18 18:21 93 Nasal Cannula 3.00 08/31/18 18:19 61 18 107/54 (71) 93 Nasal Cannula 3.00 08/31/18 17:35 68 15 125/66 (85) 93 Nasal Cannula 3.00 08/31/18 17:13 67 19 119/67 93 Nasal Cannula 3.00 08/31/18 14:39 94 Nasal Cannula 2.00 28 08/31/18 14:19 Nasal Cannula 3.0 08/31/18 14:08 98.3 74 161/83 (109) 89 Room Air 08/31/18 14:06 93 Nasal Cannula 3.00 I & O 09/01/18 07:00 Intake Total 2667.5 ml Output Total 475 ml Balance 2192.5 ml Height & Weight Height: 5'8.00" Weight: 198lbs. 8.0oz. 90.254077po; 30.2 BMI Method:Stated General Appearance: WD/WN, Mild Distress HEENT: PERRL/EOMI, Pharynx Normal Neck: Full Range of Motion, Normal Inspection, Non Tender, Supple Respiratory: Accessory Muscle Use, Crackles Cardiovascular: Regular Rate, Rhythm, No Murmur Capillary Refill: Less Than 3 Seconds Extremity: Normal Range of Motion, Non Tender, No Calf Tenderness, Pedal Edema (mild bilateral above the ankles) Neurologic/Psychiatric: Alert, Oriented x3, No Motor/Sensory Deficits Skin: Normal Color, Warm/Dry Results Lab Laboratory Tests 08/31/18 14:10 09/01/18 03:09 Assessment/Plan Assessment/Plan Acute respiratory failure with severe bilateral PNA -Continue BiPAP for now -I discussed possible need for intubation with pt and . They are ok with ventilator if needed. -alicea cultures, check respiratory viral panel -Continue Cefepime and add vancomycin RLD -Add Solumedrol -SVNS Q4 Small bilateral pleural effusion R>L -Repeat BNP -KVO IVF -Pt will probably need a dose of lasix BRIDGER -Pt uses BiPAP at home -Will continue with our BiPAP while he is in ICU Anemia -Monitor JUAN HESS DO Sep 01, 2018 05:35
[2018-09-01] MEDS ORDERED: PHARMACY TO DOSE IV SCH (06:00)
[2018-09-01] MEDS: RT-ALBUTEROL/IPRATROPIUM 3 ML (DUONEB) VIAL INH SCH ×5 (06:07→21:35)
[2018-09-01 06:09] LABS: BILIRUBIN,URINE NEGATIVE (NEGATIVE); CLARITY,URINE CLEAR; COLOR,URINE YELLOW; GLUCOSE, URINE (UA) NEGATIVE (NEGATIVE); KETONES,URINE 1+ (NEGATIVE); LEUKOCYTE ESTERASE ,URINE 1+ (NEGATIVE); NITRITE,URINE NEGATIVE (NEGATIVE); PH,URINE 5 (5-9); PROTEIN,URINE 2+ (NEGATIVE); UROBILINOGEN,URINE 1 MG/DL (NORMAL)
[2018-09-01] MEDS: methylPREDNISolone 40 MG/ML (Solu-MEDROL) VIAL IV SCH ×3 (06:11→17:39)
[2018-09-01 06:23] LABS: BACTERIA,URINE TRACE /HPF
[2018-09-01] MEDS ORDERED: RT-ALBUTEROL/IPRATROPIUM 3 ML (DUONEB) VIAL INH ONE (07:00)
[2018-09-01] MEDS ORDERED: RT-ALBUTEROL/IPRATROPIUM 3 ML (DUONEB) VIAL INH SCH ×2 (07:00→15:00)
[2018-09-01 07:24] LABS: CHOLESTEROL 91 MG/DL (< 200); HDL CHOLESTEROL 38 MG/DL (40-60); TRIGLYCERIDES 84 MG/DL (<150); VLDL CHOLESTEROL 17 MG/DL (5-40)
[2018-09-01] MEDS: DIGOXIN 0.25 MG (LANOXIN) TAB PO SCH (09:32)
[2018-09-01] MEDS: APIXABAN 5 MG (ELIQUIS) TABLET PO SCH ×2 (09:32→20:06)
[2018-09-01] MEDS: DILTIAZEM 300 MG (CARDIZEM CD) CAP PO SCH (09:32)
[2018-09-01] MEDS: PANTOPRAZOLE 40 MG (PROTONIX) VIAL IV SCH (09:32)
--- NOTE | 2018-09-01 11:00 | Diagnostic Imaging Report ---
Indication: Dyspnea. Time of exam 3:18 AM Correlation is made with prior study of one day earlier. Changes of median sternotomy and CABG are noted. Pacer is in place. Extensive airspace infiltrate primarily in the mid portions of both lungs appears to be slightly worse. There is no effusion or pneumothorax Impression: Worsening bilateral infiltrates when compared with exam one day earlier. Dictated by: Dictated on workstation # [id number]
--- NOTE | 2018-09-01 11:35 | History & Physical-Hospitalist ---
History of Present Illness HPI/Chief Complaint CC: Dyspnea with bilateral pneumonia HPI: This is a 78yoWM clinic patient of Dr Parsons and Dr Avila who has a h/o asthma and CHF and pneumonia who presented to the ER with cough, fever and dyspnea and was found to have bilateral pneumonia. CT angiogram was obtained due to elevated d-dimer which revealed no PE just confirmed the infiltrates. Patient was doing well on abx on the med-surg floor but began having increased crackles and dyspnea prompting the addition of biPAP but worsened further so he was moved to ICU and Dr Mijares and Dr Avila were consulted. Patient is doing well on Vapotherm off biPAP right now and he also wears biPAP at home at night for BRIDGER. Reviewed home meds and restarted most but Cardiology will review their speciality meds. Discussion of short term vent ensued and currently patient is feeling much better. Source: patient Date Seen 09/01/18 Time Seen by a Provider: 11:45 Attending Physician Heike Esteban Holly A MD Referring Physician Date of Admission Aug 31, 2018 at 17:14 Home Medications & Allergies Home Medications Reviewed patient Home Medication Reconciliation performed by pharmacy medication reconciliations transfill technician and/or nursing. Patients Allergies have been reviewed. Allergies Allergies Coded Allergies Sulfa (Sulfonamide Antibiotics) (Verified Allergy, Unknown, 08/31/18) montelukast (Unverified Adverse Reaction, Unknown, 06/08/16) Hallucinations per pt Past Iqhidrg-Uvyskl-Tkedkk Hx Past Med/Social Hx: Reviewed Nursing Past Med/Soc Hx, Reviewed and Corrections made Patient Social History Marrital Status: Employed/Student: retired Alcohol Use: Denies Use Recreational Drug Use: No Smoking Status: Former Smoker Former Smoker, Quit: Dec 08, 1991 Type Used: Cigarettes Recent Foreign Travel: No Contact w/other who traveled: No Recent Hopitalizations: No Recent Infectious Disease Expo: No Immunizations Up To Date Date of Pneumonia Vaccine: August 05, 2018 Date of Influenza Vaccine: Jan 08, 2017 Seasonal Allergies Seasonal Allergies: Yes Past Medical History Surgeries: Cardiac, CABG, Coronary Stent, Gallbladder, Pacemaker Respiratory: COPD, Sleep Apnea Currently Using CPAP: No Currently Using BIPAP: Yes Cardiac: Atrial Fibrillation, Coronary Artery Disease, High Cholesterol, Hypertension Reproductive: No Sexually Transmitted Disease: No HIV/AIDS: No Gastrointestinal: Colitis, Chronic Diarrhea, Polyps Loss of Vision: Denies Hearing Impairment: Denies Cancer: Skin, Melanoma History of Blood Disorders: No Adverse Reaction to Blood Jones: No (N/A) Family History Reviewed Nursing Family Hx Arthritis Cardiovascular disease Kidney disease G8 BROTHER Leukemia G8 BROTHER Multiple myeloma Prostate cancer 19 FATHER Heart Disease, Hypertension Review of Systems Constitutional: see HPI, weakness EENTM: no symptoms reported Respiratory: dyspnea on exertion, short of breath, wheezing Cardiovascular: chest pain Gastrointestinal: no symptoms reported Genitourinary: no symptoms reported Musculoskeletal: no symptoms reported Skin: no symptoms reported Psychiatric/Neurological: No Symptoms Reported All Other Systems Reviewed Negative Unless Noted: Yes Physical Exam Physical Exam Vital Signs Vital Signs - First Documented 08/31/18 08/31/18 08/31/18 08/31/18 14:06 14:08 14:39 17:13 Temp 98.3 Pulse 74 Resp 19 B/P (MAP) 161/83 (109) Pulse Ox 93 O2 Delivery Nasal Cannula O2 Flow Rate 3.00 FiO2 28 Capillary Refill : Less Than 3 Seconds Height, Weight, BMI Height: 5'8.00" Weight: 198lbs. 8.0oz. 90.642539ut; 30.2 BMI Method:Stated General Appearance: No Apparent Distress, WD/WN, Chronically ill Eyes: Right Eye Normal Inspection, Right Eye PERRL HEENT: PERRL/EOMI, Normal ENT Inspection, Pharynx Normal, Moist Mucous Membranes Neck: Full Range of Motion, Normal Inspection, Non Tender Respiratory: Chest Non Tender, No Respiratory Distress, Accessory Muscle Use, Crackles, Decreased Breath Sounds Cardiovascular: Regular Rate, Rhythm, No Edema, No Gallop, No JVD, No Murmur, Normal Peripheral Pulses Gastrointestinal: Normal Bowel Sounds, No Organomegaly, No Pulsatile Mass, Non Tender, Soft Back: Normal Inspection, No CVA Tenderness, No Vertebral Tenderness Extremity: Normal Capillary Refill, Normal Inspection, Normal Range of Motion, Non Tender, No Calf Tenderness, No Pedal Edema Neurologic/Psychiatric: Alert, Oriented x3, No Motor/Sensory Deficits, Normal Mood/Affect Skin: Normal Color, Warm/Dry Lymphatic: No Adenopathy Results Results/Procedures Labs Laboratory Tests 08/31/18 14:10 09/01/18 03:09 Patient resulted labs reviewed. Assessment/Plan Admission Diagnosis Assessment: Acute respiratory failure Bilateral pneumonia placed on Cefepime and Vanc Acute bronchospasm Bilateral pleural effusion BRIDGER on biPAP at home Anemia UC Pacemaker OAC CAD h/o CABG Plan: Restart most home meds Monitor O2 and respiratory status May need vent if worsens Appreciate Cardiology and Pulmonology Hematuria on UA so defer OAC to Dr Avila Admission Status: Inpatient Order (span 2 midnights) Reason for Inpatient Admission: Critical illness with pneumonia Diagnosis/Problems Diagnosis/Problems (1) Respiratory distress Status: Acute (2) Bilateral pneumonia Status: Acute Qualifiers: Pneumonia type: due to unspecified organism Lung location: upper lobe of lung Qualified Codes: J18.1 - Lobar pneumonia, unspecified organism (3) Pleural effusion Status: Acute (4) Anemia Status: Chronic Qualifiers: Anemia type: unspecified type Qualified Codes: D64.9 - Anemia, unspecified (5) BRIDGER treated with BiPAP Status: Chronic (6) Asthma Qualifiers: Asthma severity: moderate Asthma persistence: persistent Asthma complication type: with acute exacerbation Qualified Codes: J45.41 - Moderate persistent asthma with (acute) exacerbation (7) Hypoxia Status: Acute (8) COPD (chronic obstructive pulmonary disease) Status: Chronic Qualifiers: COPD type: unspecified COPD Qualified Codes: J44.9 - Chronic obstructive pulmonary disease, unspecified (9) CAD S/P percutaneous coronary angioplasty Onset Date: 12/31/2013 Status: Acute (10) Leukocytosis Status: Acute Qualifiers: Leukocytosis type: leukemoid reaction Qualified Codes: D72.823 - Leukemoid reaction (11) Hypoxemia Status: Acute (12) D-dimer, elevated Status: Acute (13) Hx of CABG Status: Chronic (14) Pacemaker Status: Chronic (15) On continuous oral anticoagulation Status: Chronic (16) Hematuria Status: Acute Qualifiers: Hematuria type: asymptomatic microscopic Qualified Codes: R31.21 - Asymptomatic microscopic hematuria Clinical Quality Measures AMI/AHF: ASA po Prior to arrival: No DVT/VTE Risk/Contraindication: Risk Factor Score Per Nursin RFS Level Per Nursing on Admit: 4+=Very High HEIKE ESTEBAN DO Sep 01, 2018 11:35
--- NOTE | 2018-09-01 12:01 | Consultation-Cardiology ---
HPI-Cardiology Cardiology Consultation: Date of Consultation 09/01/18 Time Seen by a Provider: 11:10 Date of Admission Attending Physician Heike Saravia DO Admitting Physician Codey Parsons MD Consulting Physician TOSHA JUNIOR MD, MA, FACP, FACC, [facility] [place], [facility] Physician requesting consult: Dr Saravia HPI: Chief Complaint: CC: Shortness of breath HPI 78 yo man with increasing shortness of breath, cough productive of small quantities of yellowish sputum and gen malaise; also had fever at time of presentation to ER last night, according to him. Denies cp or palp or syncope or leg swelling. Notes some abdominal distention and poor appetite. Denies nausea, vomiting, diarrhea Review of Systems-Cardiology Review of Systems Constitutional: As described under HPI Eyes: No vision change Ears/Nose/Throat: No ear discharge, No nasal drainage, No recent hearing loss Respiratory: As described under HPI Cardiovascular: As described under HPI Gastrointestinal: As described under HPI Genitourinary: No dysuria, No hematuria, No urine frequency changes Musculoskeletal: No back pain, No joint pain Skin: other (lesions on forehead that he states have been diagnosed as precancerous) Psychiatric/Neurological: No seizure, No focal weakness, No syncope Hematologic: No bleeding abnormalities All Other Systems Reviewed Negative Unless Noted: Yes VMI-Vsmdfg-Pytraq Hx Patient Social History Marrital Status: Employed/Student: retired Alcohol Use: Denies Use Recreational Drug Use: No Smoking Status: Former Smoker Former smoker/When Quit: Dec 30, 2008 Type Used: Cigarettes Recent Foreign Travel: No Recent Infectious Disease Expo: No Immunizations Up To Date Date of Pneumonia Vaccine: August 05, 2018 Date of Influenza Vaccine: Jan 08, 2017 Past Medical History PMH As described under Assessment. Family Medical History Family History: Arthritis Cardiovascular disease Kidney disease G8 BROTHER Leukemia G8 BROTHER Multiple myeloma Prostate cancer 19 FATHER Allergies and Home Medications Allergies Coded Allergies: Sulfa (Sulfonamide Antibiotics) (Verified Allergy, Unknown, 08/31/18) montelukast (Unverified Adverse Reaction, Unknown, 06/08/16) Hallucinations per pt Home Medications Apixaban 5 Mg Tablet, 5 MG PO BID, (Reported) Aspirin 81 Mg Tablet.dr, 81 MG PO DAILY, (Reported) Cefdinir 300 Mg Capsule, 300 MG PO BID Prescribed by: CODEY PARSONS on 04/16/17905 Digoxin 250 Mcg Tablet, 250 MCG PO 1900, (Reported) TAKE 2 HOURS AFTER SUPPER Diltiazem HCl 180 Mg Cap.er.24h, 360 MG PO DAILY, (Reported) TAKES 2 (180 MG) CAPS Fexofenadine HCl 180 Mg Tablet, 180 MG PO 1200, (Reported) Fluconazole 150 Mg Tablet, 150 MG PO DAILY, (Reported) 7 DAY THERAPY FILLED 04-10-17 Fluorouracil 30 Gm Cream..g., TP BID, (Reported) 2 WEEK THERAPY START 04-06-17 END 04-20-17 Fluticasone Propionate 16 Gm Mcbh [place].susp, 1 SPRAY NS BID PRN for ALLERGIES, (Reported) Furosemide 40 Mg Tablet, 40 MG PO DAILY, (Reported) Gluc HCl/Csa/Chato Hy/Hyalur AC 1 Each Capsule, 1 CAP PO 1800, (Reported) Ipratropium/Albuterol Sulfate 3 Ml Ampul.neb, 3 ML INH RTQ6HR scheduled 4times daily x 5days, every 2hours PRN short of air, after 5 days scheduled, use every 2hours PRN short of air Prescribed by: CODEY PARSONS on 04/16/17905 Lactobacillus Combination No.4 1 Each Capsule, 1 CAP PO BID, (Reported) Loperamide HCl 2 Mg Tablet, 1 MG PO BID, (Reported) TAKES 1/2 (2MG) TABLET Losartan Potassium 25 Mg Tablet, 25 MG PO 1800, (Reported) Mesalamine 1,000 Mg Supp.rect, 1,000 MG RC HS, (Reported) 60 DAY THECHATSWORTHY START DATE 04-08-17 Mesalamine 1.2 Gm Tablet.dr, 2.4 GM PO HS, (Reported) TAKES 2 (1.2GM) TABLETS AT BEDTIME WITH FOOD Metoprolol Tartrate 100 Mg Tablet, 100 MG PO BID, (Reported) Multivit-Min/FA/Lycopene/Lut 1 Each Tablet, 1 TAB PO HS, (Reported) Nystatin 100,000 Unit/1 Ml Oral.susp, 5 ML PO QID, (Reported) 10 DAY SUPPLY FILLED 04-10-17 Potassium Chloride 20 Meq Tab.er.prt, 20 MEQ PO DAILY, (Reported) Promethazine HCl/Codeine 118 Ml Syrup, 5-10 ML PO Q6H PRN for COUGH, (Reported) Rosuvastatin Calcium 5 Mg Tablet, 2.5 MG PO 1800, (Reported) TAKES 1/2 (5MG) TABLET Patient Home Medication List Home Medication List Reviewed: Yes Physical Exam-Cardiology Physical Exam Vital Signs/I&O 09/01/18 09/01/18 09/01/18 09/01/18 00:05 01:39 02:00 02:15 Temp 98.2 100.9 Pulse 64 61 73 61 Resp 20 26 26 29 B/P (MAP) 134/63 (86) 143/74 (97) 143/74 (97) Pulse Ox 91 92 96 97 O2 Delivery Nasal Cannula NIV Bilevel NIV Bilevel O2 Flow Rate 4.00 80.00 100.00 100.00 09/01/18 09/01/18 09/01/18 09/01/18 02:17 02:19 02:30 02:35 Pulse 62 61 Resp 26 B/P (MAP) 138/67 (90) Pulse Ox 93 92 O2 Delivery NIV Bilevel NIV Bilevel NIV Bilevel O2 Flow Rate 80.00 80.00 FiO2 80 09/01/18 09/01/18 09/01/18 09/01/18 02:45 03:00 03:25 03:25 Temp 98.6 Pulse 60 60 64 Resp 26 21 26 B/P (MAP) 134/66 (88) 134/66 (88) Pulse Ox 91 94 94 O2 Delivery NIV Bilevel NIV Bilevel O2 Flow Rate 80.00 80.00 80.00 09/01/18 09/01/18 09/01/18 09/01/18 04:00 05:00 05:52 06:00 Pulse 63 60 61 Resp 25 25 25 B/P (MAP) 143/20 (61) 145/70 (95) 143/67 (92) Pulse Ox 92 93 91 O2 Delivery NIV Bilevel NIV Bilevel NIV Bilevel NIV Bilevel O2 Flow Rate 80.00 80.00 75.00 75.00 09/01/18 09/01/18 09/01/18 09/01/18 06:08 07:00 07:00 08:00 Pulse 61 64 66 61 Resp 27 24 23 B/P (MAP) 130/71 (90) 144/72 (96) Pulse Ox 92 94 94 O2 Delivery NIV Bilevel NIV Bilevel O2 Flow Rate 75.00 75.00 75.00 6/05/2109/01/18 09/01/18 09/01/18 09:00 09:44 10:00 11:00 Pulse 66 61 61 Resp 25 23 21 B/P (MAP) 149/84 (105) Pulse Ox 93 94 96 91 O2 Delivery NIV Bilevel Vapotherm Vapotherm Vapotherm O2 Flow Rate 75.00 60.00 60.00 30.00 30.00 FiO2 60 09/01/18 00:00 Intake Total 1940 ml Output Total 125 ml Balance 1815 ml Capillary Refill : Less Than 3 Seconds Constitutional: AAO x 3, well-developed, well-nourished HEENT: EOMI, hearing is well preserved; No xanthelasmas are seen Neck: No carotid bruit; carotid pulses are 2 + bilaterally, with good upstrokes Respiratory: No accessory muscle use; other (fair to good air entry; bibasilar coarse crackles; rhonchi over large airways) Cardiovascular: regular rate-rhythm, S1 and S2, systolic murmur (soft GRETA at card base) Gastrointestinal: No tender; distended; No guarding, No rebound; audible bowel sounds Extremities: No clubbing, No cyanosis, No significant edema Neurologic/Psychiatric: oriented x 3, grossly intact, power is 5/5 both on sides Skin: No rash; ulcerations (up to 2 cm lesions on forehead with superficial excoriation and mild redness) Data Review Labs Laboratory Tests 08/31/18 14:10: White Blood Count 12.5H, Red Blood Count 4.23L, Hemoglobin 13.5, Hematocrit 39L, Mean Corpuscular Volume 93, Mean Corpuscular Hemoglobin 32, Mean Corpuscular Hemoglobin Concent 34, Red Cell Distribution Width 14.4, Platelet Count 171, Mean Platelet Volume 10.1, Neutrophils (%) (Auto) 62, Lymphocytes (%) (Auto) 24, Monocytes (%) (Auto) 10, Eosinophils (%) (Auto) 4, Basophils (%) (Auto) 0, Neutrophils # (Auto) 7.7, Lymphocytes # (Auto) 3.0, Monocytes # (Auto) 1.2H, Eosinophils # (Auto) 0.5H, Basophils # (Auto) 0.0, Prothrombin Time 15.8H, INR Comment 1.2, Activated Partial Thromboplast Time 40H, D-Dimer 1.64H, Sodium Level 138, Potassium Level 4.0, Chloride Level 104, Carbon Dioxide Level 22, Anion Gap 12, Blood Urea Nitrogen 14, Creatinine 1.11, Estimat Glomerular Filtration Rate > 60, BUN/Creatinine Ratio 13, Glucose Level 132H, Calcium Level 9.4, Corrected Calcium 9.3, Magnesium Level 2.0, Total Bilirubin 1.4H, Aspartate Amino Transf (AST/SGOT) 24, Alanine Aminotransferase (ALT/SGPT) 23, Alkaline Phosphatase 77, Myoglobin 66.4, Troponin I 0.028, B-Type Natriuretic Peptide 90.8, Total Protein 7.2, Albumin 4.1 08/31/18 16:58: Lactic Acid Level 1.44 09/01/18 03:09: White Blood Count 13.4H, Red Blood Count 3.81L, Hemoglobin 11.8L, Hematocrit 36L , Mean Corpuscular Volume 95, Mean Corpuscular Hemoglobin 31, Mean Corpuscular Hemoglobin Concent 33, Red Cell Distribution Width 14.9H, Platelet Count 156, Mean Platelet Volume 9.6, Neutrophils (%) (Auto) 83H, Lymphocytes (%) (Auto) 8L, Monocytes (%) (Auto) 9, Eosinophils (%) (Auto) 0, Basophils (%) (Auto) 0, Neutrophils # (Auto) 11.1H, Lymphocytes # (Auto) 1.0, Monocytes # (Auto) 1.2H, Eosinophils # (Auto) 0.0, Basophils # (Auto) 0.0, Sodium Level 136, Potassium Level 4.1, Chloride Level 104, Carbon Dioxide Level 20L, Anion Gap 12, Blood Urea Nitrogen 16, Creatinine 1.20, Estimat Glomerular Filtration Rate 59, BUN/Creatinine Ratio 13, Glucose Level 160H, Calcium Level 8.6, Magnesium Level 1.8, B-Type Natriuretic Peptide 80.2, Phosphorus Level 2.6, Triglycerides Level 84, Cholesterol Level 91, LDL Cholesterol Direct 38, VLDL Cholesterol 17, HDL Cholesterol 38L 09/01/18 03:24: Blood Gas Puncture Site RIGHT RADIAL, Blood Gas Patient Temperature 98.6, Arterial Blood pH 7.45H, Arterial Blood Partial Pressure CO2 34L, Arterial Blood Partial Pressure O2 75L, Arterial Blood HCO3 23, Arterial Blood Total CO2 24.1, Arterial Blood Oxygen Saturation 97, Arterial Blood Base Excess -0.4, Pranav Test YES-POS, Blood Gas Ventilator Setting NO, Blood Gas Inspired Oxygen 80% 09/01/18 05:55: Urine Color YELLOW, Urine Clarity CLEAR, Urine pH 5, Urine Specific [place] 1.015L, Urine Protein 2+H, Urine Glucose (UA) NEGATIVE, Urine Ketones 1+H, Urine Nitrite NEGATIVE, Urine Bilirubin NEGATIVE, Urine Urobilinogen 1, Urine Leukocyte Esterase 1+H, Urine RBC (Auto) NEGATIVE, Urine RBC NONE, Urine WBC NONE, Urine Squamous Epithelial Cells 2-5, Urine Crystals NONE, Urine Bacteria TRACE, Urine Casts NONE, Urine Mucus SMALLH, Urine Culture Indicated NO Laboratory Tests 08/31/18 14:10 09/01/18 03:09 A/P-Cardiology Assessment/Admission Diagnosis Bilateral pneumonia Chronic diastolic CHF Echo of 04/12/17: LVEF 60-65%, no RWMA, mild MR, mod TR, PASP approx 45 mmHg, mild AoV sclerosis w/o stenosis 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 Cardiac cath from December 30, 2013 in which successful GAURI x 2, one to the proximal and one to the mid vessel LAD, was done. 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 Pacemaker currently in the VVIR mode, due to permanent atrial fib. The patient had a pulse generator change out on 12/18/2011. The device is functioning normally per last interrogation of 06/26/18, but appears to be approaching DIMITRIOS (10 month: 1 month to 19 months) History of ulcerative colitis, being managed by Dr. Parsons and Dr. Seymour Stroke prophylaxis with Eliquis Sleep apnea for which he is following with Dr Mijares - Bi-pap therapy Hyperlipidemia being treated with rosuvastatin. Mild carotid arterial disease that has been followed by Dr. Mcdaniel History of cholecystectomy. Impaired fasting glucose Elevated BMI of approx 30 S/p melanoma removal from the back in 2018, followed by Dr Parsons Discussion and Recomendations * Continue previous cardiac regimen * Repeat echo * Will also repeat pacemaker check * Monitor labs * Treatment pneumonia is with the Med Svce * Use diuretics as needed (in case of vol overload) Clinical Quality Measures AMI/AHF: ASA po Prior to arrival: No DVT/VTE Risk/Contraindication: Risk Factor Score Per Nursin RFS Level Per Nursing on Admit: 4+=Very High TOSHA JUNIOR MD FACP FAC CCDS Sep 01, 2018 12:01
[2018-09-01] MEDS ORDERED: TRIAMCINOLONE TOP (12:17)
[2018-09-01] MEDS ORDERED: LORA-714 PO (12:17)
[2018-09-01] MEDS ORDERED: vit D (12:17)
[2018-09-01] MEDS ORDERED: FLUTICASONE NASAL SPRAY (FLONASE) 16 GM BTL NS PRN (12:30)
[2018-09-01] MEDS ORDERED: PATIENT MAY USE OWN MEDS, ALL MC SCH (12:30)
[2018-09-01] MEDS: LACTOBACILLUS ACIDOPHILUS (PROBIOTIC) CAPSULE PO SCH (15:57)
[2018-09-01] MEDS ORDERED: VANCOMYCIN 1,750 MG/NS 500 ML IVPB IV SCH ×2 (18:00)
[2018-09-01] MEDS: LOPERAMIDE 2 MG (IMODIUM) CAP PO SCH (20:07)
[2018-09-01] MEDS: NS IV 1000 ML 1,000 ML IV SCH (20:08)
[2018-09-01] MEDS ORDERED: LOPERAMIDE HCL 1 MG PO SCH (21:00)
[2018-09-01] MEDS ORDERED: LACTOBACILLUS ACIDOPHILUS (PROBIOTIC) CAPSULE PO SCH (21:00)
[2018-09-01] MEDS ORDERED: LACTOBACILLUS COMBINATION NO 4 PO SCH (21:00)
[2018-09-02] VITALS (24 sets, daily range): BP systolic 101–173; BP diastolic 60–102
[2018-09-02] MEDS: methylPREDNISolone 40 MG/ML (Solu-MEDROL) VIAL IV SCH ×4 (00:29→18:33)
[2018-09-02] MEDS: RT-ALBUTEROL/IPRATROPIUM 3 ML (DUONEB) VIAL INH SCH ×6 (01:29→22:15)
[2018-09-02 02:52] LABS: BASOPHILS % (AUTO) 0 % (0-10); EOSINOPHILS % (AUTO) 0 % (0-10); HEMATOCRIT 33 % (40-54); HEMOGLOBIN 11.3 G/DL (13.3-17.7); LYMPHOCYTES # (AUTO) 0.6 X 10^3 (1.0-4.0); LYMPHOCYTES % (AUTO) 4 % (12-44); MEAN CORPUSCULAR HEMOGLOBIN 32 PG (25-34); MEAN CORPUSCULAR HGB CONC 34 G/DL (32-36); MEAN CORPUSCULAR VOLUME 92 FL (80-99); MEAN PLATELET VOLUME 10.4 FL (7.4-10.4); MONOCYTES # (AUTO) 0.6 X 10^3 (0.0-1.0); MONOCYTES % (AUTO) 4 % (0-12); NEUTROPHILS # (AUTO) 15.1 X 10^3 (1.8-7.8); NEUTROPHILS % (AUTO) 93 % (42-75); PLATELET COUNT 129 10^3/uL (130-400); WHITE BLOOD COUNT 16.2 10^3/uL (4.3-11.0)
[2018-09-02 03:09] LABS: CALCIUM 9.1 MG/DL (8.5-10.1); CREATININE SERUM 1.38 MG/DL (0.60-1.30); MAGNESIUM 2.2 MG/DL (1.8-2.4); PHOSPHORUS 1.4 MG/DL (2.3-4.7); POTASSIUM 3.3 MMOL/L (3.6-5.0)
[2018-09-02 03:21] LABS: ABG BASE EXCESS -3.4 MMOL/L (-2.5-2.5); ABG OXYGEN SATURATION 94 % (94-100); ABG PCO2 28 MMHG (35-45); ABG PH 7.46 (7.37-7.43); ABG PO2 58 MMHG (79-93); ABG TCO2 20.9 MMOL/L (21.0-31.0); ALLENS TEST YES-POS
[2018-09-02 03:22] LABS: INSPIRED O2 40%; PATIENT TEMP 96.2; VENTILATOR NO
[2018-09-02 03:28] LABS: BAND NEUTROPHILS 3 %; LYMPHOCYTES % (MANUAL) 2 %; MONOCYTES % (MANUAL) 2 %; NEUTROPHILS % (MANUAL) 93 %; RBC MORPH NORMAL
[2018-09-02] MEDS: POTASSIUM CL 10MEQ/50ML IVPB 50 ML IV SCH (03:55)
[2018-09-02] MEDS: MAGNESIUM 1 GM/100 ML IVPB 100 ML IV SCH (03:55)
[2018-09-02] MEDS: KCL 20 MEQ TAB (K-DUR) PO SCH (03:56)
[2018-09-02] MEDS ORDERED: KCL 20 MEQ TAB (K-DUR) PO ONE ×2 (04:00→06:00)
[2018-09-02] MEDS: CEFEPIME 1,000 MG/SWFI 10 ML IV PUSH IV SCH ×8 (04:02→22:15)
[2018-09-02] MEDS: NS IV 1000 ML 1,000 ML IV SCH (05:58)
[2018-09-02] MEDS: LACTOBACILLUS ACIDOPHILUS (PROBIOTIC) CAPSULE PO SCH ×2 (07:00→16:45)
[2018-09-02] MEDS ORDERED: POTASSIUM PHOSPHATE INJ 30 MM in NS (IVPB) 250 ML IV ONE (07:15)
--- NOTE | 2018-09-02 07:16 | Pulmonary Progress Note ---
Subjective Time Seen by a Provider: 07:17 Subjective/Events-last exam Pt feels slightly improved. Sepsis Event Evaluation Height, Weight, BMI Height: 5'8.00" Weight: 198lbs. 8.0oz. 90.573370iy; 30.2 BMI Method:Stated Focused Exam Lactate Level 08/31/18 16:58: Lactic Acid Level 1.44 Exam Exam Vital Signs Date Time Temp Pulse Resp B/P (MAP) Pulse Ox O2 Delivery O2 Flow Rate FiO2 09/02/18 06:46 90 OxyMask 10.00 09/02/18 06:00 60 23 155/75 (101) 92 OxyMask 10.00 09/02/18 05:00 69 22 173/80 (111) OxyMask 10.00 09/02/18 04:00 63 20 162/80 (107) 92 OxyMask 10.00 09/02/18 04:00 91 OxyMask 10.00 09/02/18 03:45 60 26 91 30.00 09/02/18 03:42 OxyMask 10.00 09/02/18 03:41 97.1 09/02/18 03:00 61 23 158/77 (104) 92 NIV Bilevel 40.00 09/02/18 02:00 60 22 128/70 (89) 90 NIV Bilevel 40.00 09/02/18 01:41 NIV Bilevel 40.00 09/02/18 01:29 60 22 91 40.00 09/02/18 01:00 68 09/02/18 01:00 68 22 148/68 (94) 92 NIV Bilevel 30.00 09/02/18 00:00 61 20 101/75 (84) 90 NIV Bilevel 30.00 09/02/18 00:00 91 NIV Bilevel 30 09/01/18 23:49 97.7 09/01/18 23:00 59 23 127/62 (83) 90 NIV Bilevel 30.00 09/01/18 22:45 60 26 91 30.00 09/01/18 22:00 63 21 136/62 (86) 92 NIV Bilevel 30.00 09/01/18 21:39 NIV Bilevel 30.00 09/01/18 21:35 61 21 95 30.00 09/01/18 21:00 61 22 134/76 (95) 92 NIV Bilevel 60.00 09/01/18 20:00 98.5 09/01/18 20:00 96 Vapotherm 35.00 70 09/01/18 20:00 61 21 139/71 (93) 90 NIV Bilevel 60.00 09/01/18 19:12 94 Vapotherm 40.00 75 09/01/18 19:00 64 25 147/72 (97) 93 NIV Bilevel 60.00 09/01/18 19:00 64 09/01/18 18:00 61 22 135/73 (93) 91 NIV Bilevel 60.00 09/01/18 17:00 76 21 NIV Bilevel 60.00 09/01/18 16:00 61 18 130/62 (84) 95 NIV Bilevel 60.00 09/01/18 16:00 95 NIV Bilevel 60 09/01/18 15:40 60 31 94 60.00 09/01/18 15:00 60 29 NIV Bilevel 60.00 09/01/18 14:00 65 20 137/52 (80) 91 Vapotherm 60.00 30.00 09/01/18 13:48 92 Vapotherm 60 09/01/18 13:00 65 16 138/68 (91) Vapotherm 60.00 30.00 09/01/18 12:45 62 09/01/18 12:00 95 Vapotherm 30.00 60 09/01/18 12:00 61 32 136/72 (93) Vapotherm 60.00 30.00 09/01/18 11:00 61 21 91 Vapotherm 60.00 30.00 09/01/18 10:00 61 23 96 Vapotherm 60.00 30.00 09/01/18 09:44 94 Vapotherm 60 09/01/18 09:00 66 25 149/84 (105) 93 NIV Bilevel 75.00 09/01/18 08:00 61 23 144/72 (96) 94 NIV Bilevel 75.00 09/01/18 08:00 95 NIV Bilevel 75 I & O 09/02/18 07:00 Intake Total 1200 ml Output Total 1475 ml Balance -275 ml Height & Weight Height: 5'8.00" Weight: 198lbs. 8.0oz. 90.146487it; 30.2 BMI Method:Stated General Appearance: WD/WN, Anxious, Chronically ill, Mild Distress HEENT: PERRL/EOMI, Normal ENT Inspection, Pharynx Normal, Moist Mucous Membranes Neck: Full Range of Motion, Normal Inspection, Non Tender Respiratory: Chest Non Tender, No Respiratory Distress, Accessory Muscle Use, Crackles, Decreased Breath Sounds Cardiovascular: Regular Rate, Rhythm, No Edema, No Gallop, No JVD, No Murmur, Normal Peripheral Pulses Capillary Refill: Less Than 3 Seconds Extremity: Normal Capillary Refill, Normal Inspection, Normal Range of Motion, Non Tender, No Calf Tenderness, No Pedal Edema Neurologic/Psychiatric: Alert, Oriented x3, No Motor/Sensory Deficits, Normal Mood/Affect Skin: Normal Color, Warm/Dry Lymphatic: No Adenopathy Results Lab Laboratory Tests 08/31/18 14:10 09/01/18 03:09 09/02/18 02:42 Assessment/Plan Assessment/Plan Acute respiratory failure with severe bilateral PNA -Continue BiPAP PRN -Trial NC/Vapotherm -CXR reviewed still shows extensive bilateral infiltrates -I discussed possible need for intubation with pt and . They are ok with ventilator if needed. -alicea cultures, check respiratory viral panel -Continue Cefepime and vancomycin Blood tinged sputum -Pt is on Eliquis -Monitor Hypokalemia/hypophos -replace RLD -Add Solumedrol -SVNS Q4 Small bilateral pleural effusion R>L -BNP is normal -KVO IVF Acute renal failure -monitor -Increase IVF to 75cc/hr BRIDGER -Pt uses BiPAP at home -Will continue with our BiPAP while he is in ICU Anemia - Hb stable thus far -Monitor -Occult stool is positive -Continue IV Protonix and monitor JUAN HESS DO Sep 02, 2018 07:16
--- NOTE | 2018-09-02 07:44 | Diagnostic Imaging Report ---
INDICATION: Shortness of breath Portable chest 3:55 AM There are postop changes from CABG surgery. There is a dual-chamber pacemaker. There are bilateral perihilar infiltrates which have improved slightly from the previous day. IMPRESSION: Improving bilateral perihilar infiltrates Dictated by: Dictated on workstation # [id number]
--- NOTE | 2018-09-02 08:43 | Progress Note ---
Subjective Date Seen by a Provider: Sep 02, 2018 Time Seen by a Provider: 08:39 Subjective/Events-last exam PT REPORTS THAT HE IS FEELING BETTER TODAY - HE NOTES THAT HE IS STILL QUITE SHORT OF BREATH, BUT HE IS FEELING LIKE HIS BREATHING IS EASIER THAN ON ADMISSION. HE NOTES THAT HE HAD TROUBLE SWALLOWING THE POTASSIUM. HE NOTES THAT HE DOES NOT CURRENTLY HAVE ANY CHEST PAIN. HE DENIES ABDOMINAL PAIN, NAUSEA, DIARRHEA. Review of Systems General: Fatigue HEENT: No Head Aches Pulmonary: Dyspnea; No Cough Cardiovascular: Edema; No: Chest Pain, Palpitations Gastrointestinal: No: Nausea, Abdominal Pain Genitourinary: No Dysuria; Frequency Musculoskeletal: No: back pain Neurological: Weakness; No: Confusion Focused Exam Lactate Level 08/31/18 16:58: Lactic Acid Level 1.44 Objective Exam Last Set of Vital Signs Vital Signs Date Time Temp Pulse Resp B/P (MAP) Pulse Ox O2 Delivery O2 Flow Rate FiO2 09/02/18 08:00 60 28 156/75 (102) Vapotherm 40.00 40.00 09/02/18 07:15 93 45 09/02/18 03:41 97.1 Capillary Refill : Less Than 3 Seconds I&O Intake and Output 09/02/18 00:00 Intake Total 1437.5 ml Output Total 1250 ml Balance 187.5 ml Intake Oral 900 ml IV Total 537.5 ml Output Urine Total 1250 ml # Bowel Movements 1 General: Alert, Oriented X3, Cooperative, No Acute Distress HEENT: Atraumatic, PERRLA Neck: Supple, No JVD Lungs: Other (CRACKLES IN BASES WITH RHONCHI) Heart: Regular Rate Abdomen: Normal Bowel Sounds, Soft Extremities: No Clubbing, No Cyanosis, Other (DOUGH-LIKE QUALITY TO ABDOMEN, LOWER LEGS, ARMS/HANDS) Neuro: Strength at 5/5 X4 Ext, Cranial Nerves 3-12 NL Psych/Mental Status: Mental Status NL, Mood NL Results Lab Laboratory Tests 09/01/18 11:25: Stool Occult Blood Immunoassay POSITIVEH 09/02/18 02:42: White Blood Count 16.2H, Red Blood Count 3.58L, Hemoglobin 11.3L, Hematocrit 33L , Mean Corpuscular Volume 92, Mean Corpuscular Hemoglobin 32, Mean Corpuscular Hemoglobin Concent 34, Red Cell Distribution Width 14.0, Platelet Count 129L, Mean Platelet Volume 10.4, Neutrophils (%) (Auto) 93H, Lymphocytes (%) (Auto) 4L , Monocytes (%) (Auto) 4, Eosinophils (%) (Auto) 0, Basophils (%) (Auto) 0, Neutrophils # (Auto) 15.1H, Lymphocytes # (Auto) 0.6L, Monocytes # (Auto) 0.6, Eosinophils # (Auto) 0.0, Basophils # (Auto) 0.0, Neutrophils % (Manual) 93, Lymphocytes % (Manual) 2, Monocytes % (Manual) 2, Band Neutrophils 3, Blood Morphology Comment NORMAL, Sodium Level 134L, Potassium Level 3.3L, Chloride Level 105, Carbon Dioxide Level 17L, Anion Gap 12, Blood Urea Nitrogen 21H, Creatinine 1.38H, Estimat Glomerular Filtration Rate 50, BUN/Creatinine Ratio 15, Glucose Level 277H, Calcium Level 9.1, Phosphorus Level 1.4L, Magnesium Level 2.2, Digoxin Level 0.86 09/02/18 03:05: Blood Gas Puncture Site RIGHT RADIAL, Blood Gas Patient Temperature 96.2, Arterial Blood pH 7.46H, Arterial Blood Partial Pressure CO2 28L, Arterial Blood Partial Pressure O2 58L, Arterial Blood HCO3 20L, Arterial Blood Total CO2 20.9L , Arterial Blood Oxygen Saturation 94, Arterial Blood Base Excess -3.4L, Pranav Test YES-POS, Blood Gas Ventilator Setting NO, Blood Gas Inspired Oxygen 40% Microbiology 08/31/18 Blood Culture - Preliminary, Resulted No growth Assessment/Plan Assessment/Plan Assess & Plan/Chief Complaint PNEUMONIA RESPIRATORY FAILURE HYPERTENSION CORONARY ARTERY DISEASE ACUTE RENAL FAILURE MILD CONGESTIVE HEART FAILURE ANEMIA COPD SLEEP APNEA HYPONATREMIA AND HYPOKALEMIA PNEUMONIA - ON CEFEPIME AND VANCOMYCIN - CONTINUE WITH CURRENT REGIMEN - SERIAL CHEST XRAYS - ON VAPOTHERM - DEFER TO DR. HESS RESPIRATORY FAILURE- ON VAPOTHERM HYPERTENSION - RESUMED HOME REGIMEN CORONARY ARTERY DISEASE - PACEMAKER - MILD CONGESTIVE HEART FAILURE- DISCUSSED WITH PT - HE IS GOING TO HAVE ECHO THIS MORNING, AND HE IS ALSO TO HAVE PACEMAKER CHECKED DURING THIS ADMISSION. DOSE OF LASIX 80MG IV TODAY - MONITOR OUTPUT AND WEIGHT. ACUTE RENAL FAILURE - MONITOR RENAL FUNCTION - ESPECIALLY WITH THE LARGE DOSE OF LASIX ORDERED BY CARDIOLOGY. ANEMIA - PT ON ELIQUIS - CANNOT STOP THIS MEDICATION AT THIS TIME. COPD - CHRONIC - DEFER TO DR. HESS SLEEP APNEA - ON BIPAP AT . HYPONATREMIA AND HYPOKALEMIA - REPLACE NEEDED Clinical Quality Measures AMI/AHF: ASA po Prior to arrival: No DVT/VTE Risk/Contraindication: Risk Factor Score Per Nursin RFS Level Per Nursing on Admit: 4+=Very High CODEY BARILLAS MD Sep 02, 2018 08:43
[2018-09-02] MEDS ORDERED: FUROSEMIDE 40 MG/4 ML INJ (LASIX) IVP NR (08:45)
[2018-09-02] MEDS ORDERED: FUROSEMIDE 40 MG/4 ML INJ (LASIX) ONE (08:51)
[2018-09-02] MEDS ORDERED: ASPIRIN E.C. 81 MG (ECOTRIN) TAB PO SCH (09:00)
--- NOTE | 2018-09-02 09:07 | Progress Note-Cardiology ---
Cardiology SOAP Progress Note Subjective: Shortness of breath somewhat worse More malaise and fatigue No cp or palp or syncope Objective: I&O/Vital Signs 09/01/18 09/01/18 09/01/18 09/01/18 21:35 21:39 22:00 22:45 Pulse 61 63 60 Resp 21 21 26 B/P (MAP) 136/62 (86) Pulse Ox 95 92 91 O2 Delivery NIV Bilevel NIV Bilevel O2 Flow Rate 30.00 30.00 30.00 30.00 09/01/18 09/01/18 09/02/18 09/02/18 23:00 23:49 00:00 00:00 Temp 97.7 Pulse 59 61 Resp 23 20 B/P (MAP) 127/62 (83) 101/75 (84) Pulse Ox 90 91 90 O2 Delivery NIV Bilevel NIV Bilevel NIV Bilevel O2 Flow Rate 30.00 30.00 FiO2 30 09/02/18 09/02/18 09/02/18 09/02/18 01:00 01:00 01:29 01:41 Pulse 68 68 60 Resp 22 B/P (MAP) 148/68 (94) Pulse Ox 92 91 O2 Delivery NIV Bilevel NIV Bilevel O2 Flow Rate 30.00 40.00 40.00 09/02/18 09/02/18 09/02/18 09/02/18 02:00 03:00 03:41 03:42 Temp 97.1 Pulse 60 61 Resp 22 23 B/P (MAP) 128/70 (89) 158/77 (104) Pulse Ox 90 92 O2 Delivery NIV Bilevel NIV Bilevel OxyMask O2 Flow Rate 40.00 40.00 10.00 09/02/18 09/02/18 09/02/18 09/02/18 03:45 04:00 04:00 05:00 Pulse 60 63 69 Resp 26 20 22 B/P (MAP) 162/80 (107) 173/80 (111) Pulse Ox 91 91 92 O2 Delivery OxyMask OxyMask OxyMask O2 Flow Rate 30.00 10.00 10.00 10.00 09/02/18 09/02/18 09/02/18 09/02/18 06:00 06:46 07:00 07:00 Pulse 60 62 61 Resp 23 25 B/P (MAP) 155/75 (101) 153/102 (119) Pulse Ox 92 90 O2 Delivery OxyMask OxyMask OxyMask O2 Flow Rate 10.00 10.00 10.00 09/02/18 09/02/18 07:15 08:00 Pulse 60 Resp 28 B/P (MAP) 156/75 (102) Pulse Ox 93 O2 Delivery Vapotherm Vapotherm O2 Flow Rate 40.00 40.00 40.00 FiO2 45 09/01/18 23:59 Intake Total 700 ml Output Total 900 ml Balance -200 ml Weight (Pounds): 198 Weight (Ounces): 8.0 Weight (Calculated Kilograms): 90.594923 Constitutional: AAO x 3, well-developed, well-nourished Respiratory: No accessory muscle use; other (fair to good air entry; bibasilar coarse crackles; rhonchi over large airways) Cardiovascular: regular rate-rhythm, S1 and S2, systolic murmur (soft GRETA at card base) Gastrointestional: No tender; distended; No guarding, No rebound; audible bowel sounds Extremities: No clubbing, No cyanosis, No significant edema Neurologic/Psychiatric: oriented x 3, grossly intact, power is 5/5 both on sides Skin: No rash; ulcerations (up to 2 cm lesions on forehead with superficial excoriation and mild redness) Results/Procedures: Labs Laboratory Tests 09/01/18 11:25: Stool Occult Blood Immunoassay POSITIVEH 09/02/18 02:42: White Blood Count 16.2H, Red Blood Count 3.58L, Hemoglobin 11.3L, Hematocrit 33L , Mean Corpuscular Volume 92, Mean Corpuscular Hemoglobin 32, Mean Corpuscular Hemoglobin Concent 34, Red Cell Distribution Width 14.0, Platelet Count 129L, Mean Platelet Volume 10.4, Neutrophils (%) (Auto) 93H, Lymphocytes (%) (Auto) 4L , Monocytes (%) (Auto) 4, Eosinophils (%) (Auto) 0, Basophils (%) (Auto) 0, Neutrophils # (Auto) 15.1H, Lymphocytes # (Auto) 0.6L, Monocytes # (Auto) 0.6, Eosinophils # (Auto) 0.0, Basophils # (Auto) 0.0, Neutrophils % (Manual) 93, Lymphocytes % (Manual) 2, Monocytes % (Manual) 2, Band Neutrophils 3, Blood Morphology Comment NORMAL, Sodium Level 134L, Potassium Level 3.3L, Chloride Level 105, Carbon Dioxide Level 17L, Anion Gap 12, Blood Urea Nitrogen 21H, Creatinine 1.38H, Estimat Glomerular Filtration Rate 50, BUN/Creatinine Ratio 15, Glucose Level 277H, Calcium Level 9.1, Phosphorus Level 1.4L, Magnesium Level 2.2, Digoxin Level 0.86 09/02/18 03:05: Blood Gas Puncture Site RIGHT RADIAL, Blood Gas Patient Temperature 96.2, Arterial Blood pH 7.46H, Arterial Blood Partial Pressure CO2 28L, Arterial Blood Partial Pressure O2 58L, Arterial Blood HCO3 20L, Arterial Blood Total CO2 20.9L , Arterial Blood Oxygen Saturation 94, Arterial Blood Base Excess -3.4L, Pranav Test YES-POS, Blood Gas Ventilator Setting NO, Blood Gas Inspired Oxygen 40% Microbiology 08/31/18 Blood Culture - Preliminary, Resulted No growth Laboratory Tests 08/31/18 14:10 09/01/18 03:09 09/02/18 02:42 A/P: Assessment: Bilateral pneumonia Chronic diastolic CHF. Currently, clinically appears to have volume overload Echo of 04/12/17: LVEF 60-65%, no RWMA, mild MR, mod TR, PASP approx 45 mmHg, mild AoV sclerosis w/o stenosis 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 Cardiac cath from December 30, 2013 in which successful GAURI x 2, one to the proximal and one to the mid vessel LAD, was done. 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 Pacemaker currently in the VVIR mode, due to permanent atrial fib. The patient had a pulse generator change out on 12/18/2011. The device is functioning normally per last interrogation of 06/26/18, but appears to be approaching DIMITRIOS (10 month: 1 month to 19 months) History of ulcerative colitis, being managed by Dr. Parsons and Dr. Seymour Stroke prophylaxis with Eliquis Sleep apnea for which he is following with Dr Mijares - Bi-pap therapy Hyperlipidemia being treated with rosuvastatin. Mild carotid arterial disease that has been followed by Dr. Mcdaniel History of cholecystectomy. Impaired fasting glucose Elevated BMI of approx 30 S/p melanoma removal from the back in 2018, followed by Dr Parsons Plan: * iv furosemide today * Repeat echo * Will also repeat pacemaker check * Replenish K * Monitor labs * Treatment pneumonia is with the Med Svce * I discussed his case with Dr Parsons today Clinical Quality Measures AMI/AHF: ASA po Prior to arrival: TOSHA Basurto MD FACP FAC CCDS Sep 02, 2018 09:07
[2018-09-02] MEDS: DILTIAZEM 300 MG (CARDIZEM CD) CAP PO SCH (09:11)
[2018-09-02] MEDS: LORATADINE (CLARITIN) 10 MG TAB PO SCH (09:12)
[2018-09-02] MEDS: PANTOPRAZOLE 40 MG (PROTONIX) VIAL IV SCH (09:14)
[2018-09-02] MEDS: ASPIRIN E.C. 81 MG (ECOTRIN) TAB PO SCH (09:32)
[2018-09-02] MEDS: APIXABAN 5 MG (ELIQUIS) TABLET PO SCH ×2 (09:33→22:17)
[2018-09-02] MEDS: LOPERAMIDE 2 MG (IMODIUM) CAP PO SCH ×2 (09:34→22:16)
[2018-09-02 14:10] LABS: PARAINFLU 2 PCR Not Detected (Not Detected)
[2018-09-02 15:51] LABS: PARAINFLU 1 PCR Not Detected (Not Detected); RSV PCR Not Detected (Not Detected)
[2018-09-02] MEDS ORDERED: TROUGH ORDER-PHARMACY XX NR (17:00)
[2018-09-03] VITALS (25 sets, daily range): BP systolic 102–163; BP diastolic 59–116
[2018-09-03] MEDS: methylPREDNISolone 40 MG/ML (Solu-MEDROL) VIAL IV SCH ×4 (00:29→16:15)
[2018-09-03] MEDS: RT-ALBUTEROL/IPRATROPIUM 3 ML (DUONEB) VIAL INH SCH ×6 (01:40→22:15)
[2018-09-03 04:03] LABS: BASOPHILS % (AUTO) 0 % (0-10); EOSINOPHILS % (AUTO) 0 % (0-10); HEMATOCRIT 37 % (40-54); HEMOGLOBIN 12.3 G/DL (13.3-17.7); LYMPHOCYTES # (AUTO) 0.5 X 10^3 (1.0-4.0); LYMPHOCYTES % (AUTO) 3 % (12-44); MEAN CORPUSCULAR HEMOGLOBIN 31 PG (25-34); MEAN CORPUSCULAR HGB CONC 34 G/DL (32-36); MEAN CORPUSCULAR VOLUME 92 FL (80-99); MEAN PLATELET VOLUME 10.1 FL (7.4-10.4); MONOCYTES # (AUTO) 0.8 X 10^3 (0.0-1.0); MONOCYTES % (AUTO) 4 % (0-12); NEUTROPHILS # (AUTO) 17.3 X 10^3 (1.8-7.8); NEUTROPHILS % (AUTO) 93 % (42-75); PLATELET COUNT 212 10^3/uL (130-400); RED CELL DISTRIBUTION WIDTH 14.8 % (10.0-14.5); WHITE BLOOD COUNT 18.5 10^3/uL (4.3-11.0)
[2018-09-03] MEDS: POTASSIUM CL 10MEQ/50ML IVPB 50 ML IV SCH (04:17)
[2018-09-03] MEDS: KCL 20 MEQ TAB (K-DUR) PO SCH (04:18)
[2018-09-03] MEDS: MAGNESIUM 1 GM/100 ML IVPB 100 ML IV SCH (04:18)
[2018-09-03 04:20] LABS: CALCIUM 9.6 MG/DL (8.5-10.1); CREATININE SERUM 1.24 MG/DL (0.60-1.30); MAGNESIUM 2.3 MG/DL (1.8-2.4); PHOSPHORUS 2.6 MG/DL (2.3-4.7); POTASSIUM 3.9 MMOL/L (3.6-5.0)
[2018-09-03] MEDS: CEFEPIME 1,000 MG/SWFI 10 ML IV PUSH IV SCH ×8 (04:34→21:39)
[2018-09-03] MEDS: LACTOBACILLUS ACIDOPHILUS (PROBIOTIC) CAPSULE PO SCH ×2 (06:48→16:15)
--- NOTE | 2018-09-03 07:09 | Pulmonary Progress Note ---
Subjective Time Seen by a Provider: 07:07 Subjective/Events-last exam Persistent hemoptysis Sepsis Event Evaluation Height, Weight, BMI Height: 5'8.00" Weight: 198lbs. 8.0oz. 90.461595mr; 30.2 BMI Method:Stated Focused Exam Lactate Level 08/31/18 16:58: Lactic Acid Level 1.44 Exam Exam Vital Signs Date Time Temp Pulse Resp B/P (MAP) Pulse Ox O2 Delivery O2 Flow Rate FiO2 09/03/18 06:32 93 High Flow N/C 4.00 09/03/18 06:00 61 22 122/67 (85) 90 NIV CPAP 2.00 09/03/18 05:00 66 34 137/70 (92) 93 NIV CPAP 2.00 09/03/18 04:00 74 23 151/74 (99) 94 NIV CPAP 2.00 09/03/18 04:00 96 NIV CPAP 09/03/18 03:00 68 25 137/72 (93) 94 NIV CPAP 2.00 09/03/18 02:00 69 24 130/69 (89) 95 NIV CPAP 2.00 09/03/18 01:45 97 NIV CPAP 2.00 09/03/18 01:00 62 09/03/18 01:00 92 10 115/59 (77) 96 NIV CPAP 2.00 09/03/18 00:48 97 NIV CPAP 2.00 09/03/18 00:35 70 13 97 NIV CPAP 5.00 09/03/18 00:00 81 28 138/69 (92) 92 Vapotherm 35.00 20.00 09/03/18 00:00 97.9 09/03/18 00:00 96 NIV CPAP 09/02/18 23:00 62 33 143/63 (89) 91 Vapotherm 35.00 20.00 09/02/18 22:15 93 Vapotherm 20.00 40 09/02/18 22:11 61 19 93 Vapotherm 35.00 20.00 09/02/18 22:00 63 26 128/67 (87) 89 Vapotherm 30.00 20.00 09/02/18 21:00 70 19 138/66 (90) 91 Vapotherm 30.00 20.00 09/02/18 20:00 92 NIV Bilevel 30 09/02/18 20:00 63 16 113/74 (87) 98 Vapotherm 30.00 20.00 09/02/18 20:00 98.3 09/02/18 19:00 61 25 126/61 (82) 98 Vapotherm 30.00 20.00 09/02/18 19:00 61 09/02/18 18:45 98 Vapotherm 30.00 35 09/02/18 18:00 65 24 109/61 (77) 95 Vapotherm 30.00 20.00 09/02/18 17:00 65 28 101/68 (79) 93 Vapotherm 30.00 20.00 09/02/18 16:00 98.0 09/02/18 16:00 60 32 147/66 (93) 88 Vapotherm 30.00 20.00 09/02/18 16:00 92 NIV Bilevel 30 09/02/18 15:11 94 Vapotherm 30.00 40 09/02/18 15:00 64 19 140/67 (91) 93 Vapotherm 30.00 20.00 09/02/18 14:00 60 21 117/87 (97) 95 Vapotherm 40.00 30.00 09/02/18 13:00 92 09/02/18 13:00 60 24 119/67 (84) 92 Vapotherm 40.00 30.00 09/02/18 12:00 98.0 09/02/18 12:00 92 NIV Bilevel 30 09/02/18 12:00 63 25 124/60 (81) Vapotherm 40.00 30.00 09/02/18 11:00 67 26 131/69 (89) Vapotherm 40.00 30.00 09/02/18 10:31 96 Vapotherm 40.00 45 09/02/18 10:00 70 28 139/68 (91) Vapotherm 45.00 40.00 09/02/18 09:00 75 14 151/82 (105) Vapotherm 40.00 40.00 09/02/18 08:00 91 Vapotherm 35.00 09/02/18 08:00 60 28 156/75 (102) Vapotherm 40.00 40.00 09/02/18 07:15 93 Vapotherm 40.00 45 I & O 09/03/18 07:00 Intake Total 1800 ml Output Total 1230 ml Balance 570 ml Height & Weight Height: 5'8.00" Weight: 198lbs. 8.0oz. 90.379349uq; 30.2 BMI Method:Stated General Appearance: WD/WN, Anxious, Chronically ill, Mild Distress HEENT: PERRL/EOMI, Normal ENT Inspection, Pharynx Normal, Moist Mucous Membranes Neck: Full Range of Motion, Normal Inspection, Non Tender Respiratory: Chest Non Tender, No Respiratory Distress, Accessory Muscle Use, Crackles, Decreased Breath Sounds Cardiovascular: Regular Rate, Rhythm, No Edema, No Gallop, No JVD, No Murmur, Normal Peripheral Pulses Capillary Refill: Less Than 3 Seconds Extremity: Normal Capillary Refill, Normal Inspection, Normal Range of Motion, Non Tender, No Calf Tenderness, No Pedal Edema Neurologic/Psychiatric: Alert, Oriented x3, No Motor/Sensory Deficits, Normal Mood/Affect Skin: Normal Color, Warm/Dry Lymphatic: No Adenopathy Results Lab Laboratory Tests 09/02/18 02:42 09/02/18 15:00 09/03/18 03:10 Assessment/Plan Assessment/Plan Acute respiratory failure with severe bilateral PNA -Continue BiPAP PRN -Trial NC/Vapotherm -CXR reviewed still shows extensive bilateral infiltrates -alicea cultures, check respiratory viral panel -Continue Cefepime -Pt will need repeat CT scan of chest 8 wks after discharge. -MRSA swab is negative Blood tinged sputum -Pt is on Eliquis - will hold and plan for bronchoscopy tomorrow AM. -Monitor Metabolic acidosis -repeat lactic acid RLD -Continue Solumedrol 40 Q 6 for now -SVNS Q4 Acute renal failure -monitor -IVF to 75cc/hr BRIDGER Anemia - Hb stable thus far -Monitor -Occult stool is positive -Continue IV Protonix and monitor JAUN HESS DO Sep 03, 2018 07:08
[2018-09-03] MEDS: DILTIAZEM 300 MG (CARDIZEM CD) CAP PO SCH (07:34)
[2018-09-03] MEDS: PANTOPRAZOLE 40 MG (PROTONIX) VIAL IV SCH (07:34)
[2018-09-03] MEDS: LORATADINE (CLARITIN) 10 MG TAB PO SCH (07:34)
[2018-09-03] MEDS: NS IV 1000 ML 1,000 ML IV SCH ×2 (07:35→21:39)
[2018-09-03] MEDS: ASPIRIN E.C. 81 MG (ECOTRIN) TAB PO SCH (07:36)
[2018-09-03] MEDS: LOPERAMIDE 2 MG (IMODIUM) CAP PO SCH ×2 (07:37→21:39)
--- NOTE | 2018-09-03 07:37 | Cardiology Progress Note ---
Subjective Date Seen by Provider: Sep 03, 2018 Time Seen by Provider: 07:33 Subjective/Events-last exam Patient is sitting in a chair, still having dyspnea, complaining of hemoptysis, scheduled for bronchoscopy tomorrow Review of Systems General: No Chills, No Night Sweats, No Fatigue, No Malaise, No Appetite, No Other HEENT: No Head Aches, No Visual Changes, No Eye Pain, No Ear Pain, No Dysphasia, No Sinus Congestion, No Post Nasal Drip, No Sore Throat, No Other Pulmonary: Dyspnea, Cough; No Pleuritic Chest Pain, No Other Cardiovascular: No: Chest Pain, Palpitations, Orthopnea, Paroxysmal Noc. Dyspnea, Edema, Lt Headedness, Other Focused Exam Lactate Level 08/31/18 16:58: Lactic Acid Level 1.44 09/03/18 07:16: Lactic Acid Level Laboratory Tests Test 09/03/18 07:16 Objective-Cardiology Exam Last Set of Vital Signs Vital Signs 09/02/18 09/03/18 09/03/18 22:15 06:00 06:32 Pulse 61 Resp 22 B/P (MAP) 122/67 (85) Pulse Ox 93 O2 Delivery High Flow N/C O2 Flow Rate 4.00 FiO2 40 Capillary Refill : Less Than 3 Seconds I&O Intake and Output 09/03/18 00:00 Intake Total 1950 ml Output Total 1155 ml Balance 795 ml Intake Oral 1190 ml IV Total 760 ml Output Urine Total 1155 ml General: Alert, Oriented X3, Cooperative, No Acute Distress HEENT: Atraumatic, PERRLA Neck: Supple, No JVD Lungs: Other (CRACKLES IN BASES WITH RHONCHI) Heart: Regular Rate, Normal S1, Normal S2 Abdomen: Normal Bowel Sounds, Soft Extremities: No Clubbing, No Cyanosis, Other (DOUGH-LIKE QUALITY TO ABDOMEN, LOWER LEGS, ARMS/HANDS) Neuro: Strength at 5/5 X4 Ext, Cranial Nerves 3-12 NL Psych/Mental Status: Mental Status NL, Mood NL Results Lab Laboratory Tests 09/02/18 15:00 09/03/18 03:10 A/P-Cardiology Admission Diagnosis Pneumonia Congestive heart failure, chronic compensated left ventricular diastolic dysfunction Coronary artery disease Chronic atrial fibrillation Assessment/Plan Bilateral pneumonia, complaining of hemoptysis and shortness of breath, agree with holding Eliquis in preparation for bronchoscopy. Managed by Dr. Mijares Chronic diastolic CHF, echocardiogram reviewed by Dr. Avila and reported as normal LV size and function with ejection fraction 60-65 percent, moderately dilated left atrium, mild to moderate mitral regurgitation, continue to monitor 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 Cardiac cath from December 30, 2013 in which successful GAURI x 2, one to the proximal and one to the mid vessel LAD, was done. 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 Pacemaker currently in the VVIR mode, due to permanent atrial fib. The patient had a pulse generator change out on 12/18/2011. The device is functioning normally per last interrogation of 06/26/18, but appears to be approaching DIMITRIOS (10 month: 1 month to 19 months) History of ulcerative colitis, being managed by Dr. Parsons and Dr. Seymour Stroke prophylaxis with Eliquis, currently on hold in preparation for bronchoscopy Sleep apnea for which he is following with Dr Mijares - Bi-pap therapy Hyperlipidemia being treated with rosuvastatin. Mild carotid arterial disease that has been followed by Dr. Mcdaniel History of cholecystectomy. Impaired fasting glucose Elevated BMI of approx 30 S/p melanoma removal from the back in 2018, followed by Dr Parsons Clinical Quality Measures AMI/AHF: ASA po Prior to arrival: No DVT/VTE Risk/Contraindication: Risk Factor Score Per Nursin RFS Level Per Nursing on Admit: 4+=Very High DAVID HOYOS MD Sep 03, 2018 07:37
[2018-09-03] MEDS ORDERED: LACTATED RINGERS 1,000 ML IV ONE (08:15)
--- NOTE | 2018-09-03 08:48 | Progress Note ---
Subjective Date Seen by a Provider: Sep 03, 2018 Time Seen by a Provider: 08:40 Subjective/Events-last exam PT REPORTS THAT HE IS FEELING BETTER TODAY - HE IS LESS SHORT OF BREATH, FEELS BETTER AFTER THE LASIX AND AFTER HIS BATH YESTERDAY. HE DOES ADMIT TO FEELING WEAK, HIS REPORTS INTERMITTENT CONFUSION, HE DOES HAVE TROUBLE SLEEPING AT NIGHT - HE THINKS IT IS DUE TO THE BUSINESS OF THE ICU WITH LOTS OF NOISE AND STAFF COMING IN AND OUT OF THE ROOM. Review of Systems General: Fatigue, Other (INSOMNIA) HEENT: No Head Aches, No Dysphasia Pulmonary: Dyspnea, Cough Cardiovascular: Edema; No: Chest Pain, Palpitations Gastrointestinal: No: Nausea, Abdominal Pain Genitourinary: No Dysuria; Frequency Musculoskeletal: No: back pain, leg pain Neurological: Weakness, Confusion (INTERMITTENT) Focused Exam Lactate Level 08/31/18 16:58: Lactic Acid Level 1.44 09/03/18 07:16: Lactic Acid Level 2.72*H Lactic Acid Level Laboratory Tests Test 09/03/18 07:16 Lactic Acid Level 2.72 MMOL/L (0.50-2.00) *H Objective Exam Last Set of Vital Signs Vital Signs Date Time Temp Pulse Resp B/P (MAP) Pulse Ox O2 Delivery O2 Flow Rate FiO2 09/03/18 07:00 66 09/03/18 06:32 93 High Flow N/C 4.00 09/03/18 06:00 22 122/67 (85) 09/03/18 00:00 97.9 09/02/18 22:15 40 Capillary Refill : Less Than 3 Seconds I&O Intake and Output0 09/03/18 00:00 Intake Total 1950 ml Output Total 1155 ml Balance 795 ml Intake Oral 1190 ml IV Total 760 ml Output Urine Total 1155 ml General: Alert, Oriented X3, Cooperative, No Acute Distress HEENT: Atraumatic, PERRLA Neck: Supple, No JVD Lungs: Other (CRACKLES IN BASES WITH RHONCHI) Heart: Regular Rate, Normal S1, Normal S2 Abdomen: Normal Bowel Sounds, Soft Extremities: No Clubbing, No Cyanosis, Other (DOUGH-LIKE QUALITY TO ABDOMEN, LOWER LEGS, ARMS/HANDS) Neuro: Strength at 5/5 X4 Ext, Cranial Nerves 3-12 NL Psych/Mental Status: Mental Status NL, Mood NL Results Lab Laboratory Tests 09/02/18 15:00: Sodium Level 137, Potassium Level 4.0, Chloride Level 107, Carbon Dioxide Level 17L, Anion Gap 13, Vancomycin Level Trough 9.5L 09/03/18 03:10: Sodium Level 138, Potassium Level 3.9, Chloride Level 108H, Carbon Dioxide Level 15L, Anion Gap 15H, White Blood Count 18.5H, Red Blood Count 3.97L, Hemoglobin 12.3L, Hematocrit 37L, Mean Corpuscular Volume 92, Mean Corpuscular Hemoglobin 31, Mean Corpuscular Hemoglobin Concent 34, Red Cell Distribution Width 14.8H, Platelet Count 212, Mean Platelet Volume 10.1, Neutrophils (%) (Auto) 93H, Lymphocytes (%) (Auto) 3L, Monocytes (%) (Auto) 4, Eosinophils (%) (Auto) 0, Basophils (%) (Auto) 0, Neutrophils # (Auto) 17.3H, Lymphocytes # (Auto) 0.5L, Monocytes # (Auto) 0.8, Eosinophils # (Auto) 0.0, Basophils # (Auto) 0.0, Blood Urea Nitrogen 21H, Creatinine 1.24, Estimat Glomerular Filtration Rate 57, BUN/Creatinine Ratio 17, Glucose Level 222H, Calcium Level 9.6, Phosphorus Level 2.6, Magnesium Level 2.3 09/03/18 07:16: Lactic Acid Level 2.72*H Microbiology 08/31/18 Blood Culture - Preliminary, Resulted No growth 09/01/18 MRSA Screen - Final, Complete MRSA not isolated Assessment/Plan Assessment/Plan Assess & Plan/Chief Complaint PNEUMONIA RESPIRATORY FAILURE HYPERTENSION CORONARY ARTERY DISEASE ACUTE RENAL FAILURE MILD CONGESTIVE HEART FAILURE ANEMIA COPD SLEEP APNEA HYPONATREMIA AND HYPOKALEMIA PNEUMONIA - ON CEFEPIME AND VANCOMYCIN - CONTINUE WITH CURRENT REGIMEN - SERIAL CHEST XRAYS - NOW ON NASAL CANULA - DEFER TO DR. HESS RESPIRATORY FAILURE- ON IMPROVED - NOW ON NASAL CANULA HYPERTENSION - RESUMED HOME REGIMEN CORONARY ARTERY DISEASE - PACEMAKER - MILD CONGESTIVE HEART FAILURE- DISCUSSED WITH PT - DEFER TO CARDIOLOGY - SEE ECHO REPORT. ACUTE RENAL FAILURE - MONITOR RENAL FUNCTION - ESPECIALLY WITH THE LARGE DOSE OF LASIX ORDERED BY CARDIOLOGY. ANEMIA - WILL CONSIDER STOPPING THIS MEDICATION DEPENDING ON HIS BRONCHOSCOPY. COPD - CHRONIC - DEFER TO DR. HESS SLEEP APNEA - ON BIPAP AT HS. HYPONATREMIA AND HYPOKALEMIA - REPLACE NEEDED Clinical Quality Measures AMI/AHF: ASA po Prior to arrival: No DVT/VTE Risk/Contraindication: Risk Factor Score Per Nursin RFS Level Per Nursing on Admit: 4+=Very High CODEY BARILLAS MD Sep 03, 2018 08:48
--- NOTE | 2018-09-03 10:21 | Diagnostic Imaging Report ---
EXAMINATION: Portable erect AP chest at 3:58 AM. INDICATION: Pneumonia. FINDINGS: The heart size is stable when compared to the prior exam of 09/02/2018. The sternotomy wires, surgical clips, and left-sided pacemaker seen previously are also again evident. The prior exam did note bilateral perihilar infiltrates. On this exam, the alveolar/interstitial infiltrates are still present although they have diminished since the prior study. The lung bases remain clear. There is no significant pleural effusion. The mediastinum is not widened. The osseous structures are intact. IMPRESSION: The appearance of the chest continues to improve as both perihilar regions are better aerated. A followup study would be recommended for continued evaluation. Dictated by: Dictated on workstation # [id number]
--- NOTE | 2018-09-03 11:30 | NUR ---
Pastoral care visit.
[2018-09-03] MEDS ORDERED: LORazepam 1 MG (ATIVAN) TAB PO PRN (20:45)
[2018-09-04] VITALS (24 sets, daily range): BP systolic 98–175; BP diastolic 63–105
[2018-09-04] MEDS: methylPREDNISolone 40 MG/ML (Solu-MEDROL) VIAL IV SCH ×5 (00:09→23:15)
[2018-09-04] MEDS: RT-ALBUTEROL/IPRATROPIUM 3 ML (DUONEB) VIAL INH SCH ×6 (01:56→22:14)
[2018-09-04 03:44] LABS: BASOPHILS % (AUTO) 0 % (0-10); EOSINOPHILS % (AUTO) 0 % (0-10); HEMATOCRIT 36 % (40-54); HEMOGLOBIN 12.2 G/DL (13.3-17.7); LYMPHOCYTES # (AUTO) 0.5 X 10^3 (1.0-4.0); LYMPHOCYTES % (AUTO) 3 % (12-44); MEAN CORPUSCULAR HEMOGLOBIN 32 PG (25-34); MEAN CORPUSCULAR HGB CONC 34 G/DL (32-36); MEAN CORPUSCULAR VOLUME 93 FL (80-99); MONOCYTES # (AUTO) 0.5 X 10^3 (0.0-1.0); MONOCYTES % (AUTO) 4 % (0-12); NEUTROPHILS # (AUTO) 13.6 X 10^3 (1.8-7.8); NEUTROPHILS % (AUTO) 93 % (42-75); PLATELET COUNT 205 10^3/uL (130-400); RED CELL DISTRIBUTION WIDTH 14.8 % (10.0-14.5); WHITE BLOOD COUNT 14.6 10^3/uL (4.3-11.0)
[2018-09-04] MEDS: CEFEPIME 1,000 MG/SWFI 10 ML IV PUSH IV SCH ×8 (03:48→21:35)
[2018-09-04 04:07] LABS: BUN/CREATININE RATIO 18; CALCIUM 8.9 MG/DL (8.5-10.1); CARBON DIOXIDE 18 MMOL/L (21-32); CHLORIDE 108 MMOL/L (98-107); CREATININE SERUM 1.14 MG/DL (0.60-1.30); GFR ESTIMATED > 60; GLUCOSE 240 MG/DL (70-105); MAGNESIUM 1.8 MG/DL (1.8-2.4); PHOSPHORUS 2.6 MG/DL (2.3-4.7); POTASSIUM 3.9 MMOL/L (3.6-5.0); SODIUM 137 MMOL/L (135-145)
[2018-09-04] MEDS: POTASSIUM CL 10MEQ/50ML IVPB 50 ML IV SCH (04:21)
[2018-09-04] MEDS: LACTATED RINGERS 1,000 ML IV SCH ×5 (04:21→23:15)
[2018-09-04] MEDS: MAGNESIUM 1 GM/100 ML IVPB 100 ML IV SCH (04:22)
[2018-09-04] MEDS: LACTOBACILLUS ACIDOPHILUS (PROBIOTIC) CAPSULE PO SCH ×2 (04:22→16:27)
[2018-09-04] MEDS: KCL 20 MEQ TAB (K-DUR) PO SCH (04:22)
[2018-09-04] MEDS: inSUlin ASPART (NovoLOG) 1 UNIT/0.01 ML (CHARGE PER UNIT) SQ SCH ×4 (05:26→23:16)
--- NOTE | 2018-09-04 05:49 | Pulmonary Progress Note ---
Subjective Time Seen by a Provider: 06:47 Subjective/Events-last exam Pt is still coughing up blood. Sepsis Event Evaluation Height, Weight, BMI Height: 5'8.00" Weight: 198lbs. 8.0oz. 90.054932ko; 30.2 BMI Method:Stated Focused Exam Lactate Level 09/03/18 07:16: Lactic Acid Level 2.72*H 09/03/18 09:31: Lactic Acid Level 3.24*H 09/04/18 03:35: Lactic Acid Level 3.49*H Lactic Acid Level Laboratory Tests Test 09/04/18 03:35 Lactic Acid Level 3.49 MMOL/L (0.50-2.00) *H Exam Exam Vital Signs Date Time Temp Pulse Resp B/P (MAP) Pulse Ox O2 Delivery O2 Flow Rate FiO2 09/04/18 04:00 63 20 134/84 (101) 95 High Flow N/C 4.00 09/04/18 03:35 97 High Flow N/C 3.00 09/04/18 03:35 97.6 09/04/18 03:00 63 19 141/74 (96) 98 High Flow N/C 4.00 09/04/18 02:00 64 19 155/63 (93) 96 High Flow N/C 4.00 09/04/18 01:56 96 High Flow N/C 3.00 09/04/18 01:00 61 18 139/87 (104) 93 High Flow N/C 4.00 09/04/18 01:00 64 09/04/18 00:10 98.6 09/04/18 00:00 60 12 123/71 (88) 96 High Flow N/C 4.00 09/03/18 23:40 95 High Flow N/C 3.00 09/03/18 23:00 70 15 148/69 (95) 98 High Flow N/C 4.00 09/03/18 22:15 97 High Flow N/C 3.00 09/03/18 22:00 68 30 146/72 (96) 94 High Flow N/C 4.00 09/03/18 21:00 61 24 160/74 (102) 94 High Flow N/C 4.00 09/03/18 20:00 97 High Flow N/C 3.00 09/03/18 20:00 67 23 163/69 (100) 95 High Flow N/C 4.00 09/03/18 20:00 98.3 09/03/18 19:04 70 09/03/18 19:00 67 28 146/83 (104) 95 High Flow N/C 4.00 09/03/18 19:00 High Flow N/C 4.00 09/03/18 18:13 97 High Flow N/C 3.00 09/03/18 18:00 74 15 156/66 (96) 93 Nasal Cannula 4.00 09/03/18 17:00 68 28 139/76 (97) 95 Nasal Cannula 4.00 09/03/18 16:00 Nasal Cannula 4.00 09/03/18 16:00 96 NIV CPAP 09/03/18 16:00 61 23 130/71 (90) 86 Nasal Cannula 4.00 09/03/18 16:00 98.2 09/03/18 15:00 62 31 102/96 (98) 95 Nasal Cannula 4.00 09/03/18 14:36 61 96 32 09/03/18 14:31 96 High Flow N/C 3.00 09/03/18 14:00 69 17 117/116 (116) 94 Nasal Cannula 4.00 09/03/18 13:12 61 09/03/18 13:00 22 152/68 (96) 97 Nasal Cannula 4.00 09/03/18 12:00 63 16 115/67 (83) 94 Nasal Cannula 4.00 09/03/18 12:00 96 NIV CPAP 09/03/18 12:00 97.6 09/03/18 11:00 63 10 131/91 (104) 92 Nasal Cannula 4.00 09/03/18 10:33 96 High Flow N/C 3.00 09/03/18 10:00 62 13 137/75 (95) 95 Nasal Cannula 4.00 09/03/18 09:00 67 22 143/94 (110) 95 Nasal Cannula 4.00 09/03/18 08:00 66 23 141/71 (94) 99 Nasal Cannula 4.00 09/03/18 08:00 96 NIV CPAP 09/03/18 07:00 64 25 130/68 (88) 99 Nasal Cannula 4.00 09/03/18 07:00 66 09/03/18 06:32 93 High Flow N/C 4.00 09/03/18 06:00 61 22 122/67 (85) 90 NIV CPAP 2.00 I & O 09/04/18 07:00 Intake Total 2310 ml Output Total 1596 ml Balance 714 ml Height & Weight Height: 5'8.00" Weight: 198lbs. 8.0oz. 90.646450yc; 30.2 BMI Method:Stated General Appearance: WD/WN, Anxious, Chronically ill, Mild Distress HEENT: PERRL/EOMI, Normal ENT Inspection, Pharynx Normal, Moist Mucous Membranes Neck: Full Range of Motion, Normal Inspection, Non Tender Respiratory: Chest Non Tender, No Respiratory Distress, Accessory Muscle Use, Crackles, Decreased Breath Sounds Cardiovascular: Regular Rate, Rhythm, No Edema, No Gallop, No JVD, No Murmur, Normal Peripheral Pulses Capillary Refill: Less Than 3 Seconds Extremity: Normal Capillary Refill, Normal Inspection, Normal Range of Motion, Non Tender, No Calf Tenderness, No Pedal Edema Neurologic/Psychiatric: Alert, Oriented x3, No Motor/Sensory Deficits, Normal Mood/Affect Skin: Normal Color, Warm/Dry Lymphatic: No Adenopathy Results Lab Laboratory Tests 09/02/18 15:00 09/03/18 03:10 09/04/18 03:35 Assessment/Plan Assessment/Plan Acute respiratory failure with severe bilateral PNA -Continue BiPAP PRN -Trial NC/Vapotherm -CXR reviewed still shows extensive bilateral infiltrates -alicea cultures, check respiratory viral panel -Continue Cefepime -Pt will need repeat CT scan of chest 8 wks after discharge. -MRSA swab is negative Pulmonary hemorrhage with s/p Hemoptysis bronchoscopy -check ANCA, Anti GBM, GENE -Stop Eliquis for now -Continue steroids -Monitor CXR Metabolic acidosis -repeat lactic acid -Give 1 liter bolus of LR. - Change IVF to LR and increase to 125 RLD -Continue Solumedrol 40 Q 6 for now -SVNS Q4 Acute renal failure -monitor -IVF BRIDGER Anemia - Hb stable thus far -Monitor -Occult stool is positive -Continue IV Protonix and monitor JUAN HESS DO Sep 04, 2018 05:49
[2018-09-04] MEDS ORDERED: fentaNYL INJECTION 100 MCG/2 ML AMP IVP ONE (06:00)
[2018-09-04] MEDS ORDERED: MIDAZOLAM 5 MG/5 ML (VERSED) VIAL IVP ONE (06:00)
--- NOTE | 2018-09-04 06:31 | NUR ---
0610 bedside Bronchoscopy with conscious sedation initiated. 06 Bronchoscopy completed, patient tolerated without difficulty. VSS.
--- NOTE | 2018-09-04 06:47 | Pulmonary Procedures ---
Pulmonary Procedures Date of Procedure Date of Service: Sep 04, 2018 Bronch Bronchoscopy with bronchoalveolar lavage (BAL), transbronchial washes. Preop DX PNA with hemoptysis Postop DX: pulmonary hemorrhage Complications: none After informed consent obtained and formal time out pt was sedated using Fentanyl and Versed. Bronchoscope was advanced through the nare and vocal cords. 1% lidocaine was used to anesthetize vocal cords, epiglottis, leonardo, and left/right main stem bronchus. An anatomical tour was undertaken down to the segmental bronchi bilaterally. No endobronchial lesions noted. Dark blood was noted in all segments bilaterally. From the RML a bronchoalveolar lavage (BAL), transbronchial washes were obtained which were pink colored. Pt tolerated procedure well. No complications noted. Stat CXR is pending. JUAN HESS DO Sep 04, 2018 06:47
[2018-09-04] MEDS ORDERED: LIDOCAINE JELLY 2% 6 ML SYRINGE TOP ONE (08:09)
[2018-09-04] MEDS ORDERED: LIDOCAINE PF 1% 2 ML VIAL IJ ONE (08:09)
[2018-09-04] MEDS ORDERED: LIDOCAINE PF 2% 5 ML (XYLOCAINE) VIAL INJ ONE (08:09)
[2018-09-04] MEDS: DILTIAZEM 300 MG (CARDIZEM CD) CAP PO SCH (08:36)
[2018-09-04] MEDS: LORATADINE (CLARITIN) 10 MG TAB PO SCH (08:36)
[2018-09-04] MEDS: PANTOPRAZOLE 40 MG (PROTONIX) VIAL IV SCH (08:36)
[2018-09-04] MEDS: LOPERAMIDE 2 MG (IMODIUM) CAP PO SCH ×2 (08:37→21:34)
--- NOTE | 2018-09-04 08:38 | Progress Note ---
Subjective Date Seen by a Provider: Sep 04, 2018 Time Seen by a Provider: 08:35 Subjective/Events-last exam PT REPORTS THAT HE IS FEELING ROUGH AFTER HIS BRONCHOSCOPY, HIS COUGH FEELS A LITTLE MORE WET THAN YESTERDAY. Review of Systems General: No Chills; Fatigue HEENT: No Head Aches Pulmonary: Dyspnea, Cough Cardiovascular: No: Chest Pain Gastrointestinal: No: Nausea, Abdominal Pain Genitourinary: No Dysuria Musculoskeletal: back pain Neurological: Weakness; No: Confusion Focused Exam Lactate Level 09/03/18 09:31: Lactic Acid Level 3.24*H 09/04/18 03:35: Lactic Acid Level 3.49*H 09/04/18 06:46: Lactic Acid Level 2.64*H Lactic Acid Level Laboratory Tests Test 09/04/18 06:46 Lactic Acid Level 2.64 MMOL/L (0.50-2.00) *H Objective Exam Last Set of Vital Signs Vital Signs Date Time Temp Pulse Resp B/P (MAP) Pulse Ox O2 Delivery O2 Flow Rate FiO2 09/04/18 06:00 60 20 152/74 (100) 97 High Flow N/C 4.00 09/04/18 03:35 97.6 09/03/18 14:36 32 Capillary Refill : Less Than 3 Seconds I&O Intake and Output 09/04/18 00:00 Intake Total 2500 ml Output Total 1541 ml Balance 959 ml Intake Oral 1490 ml IV Total 1010 ml Output Urine Total 1541 ml General: Alert, Oriented X3, Cooperative, No Acute Distress HEENT: Atraumatic, PERRLA Neck: Supple Lungs: Other (CRACKLES IN BASES WITH RHONCHI) Heart: Regular Rate, Normal S1, Normal S2 Abdomen: Normal Bowel Sounds, Soft Extremities: No Clubbing, No Cyanosis, Other (TRACE EDEMA BILATERAL LOWER LEGS) Neuro: Cranial Nerves 3-12 NL Psych/Mental Status: Mental Status NL, Mood NL Results Lab Laboratory Tests 09/03/18 09:31: Lactic Acid Level 3.24*H 09/04/18 03:35: Lactic Acid Level 3.49*H, White Blood Count 14.6H, Red Blood Count 3.84L, Hemoglobin 12.2L, Hematocrit 36L, Mean Corpuscular Volume 93, Mean Corpuscular Hemoglobin 32, Mean Corpuscular Hemoglobin Concent 34, Red Cell Distribution Width 14.8H, Platelet Count 205, Mean Platelet Volume 10.0, Neutrophils (%) (Auto) 93H, Lymphocytes (%) (Auto) 3L, Monocytes (%) (Auto) 4, Eosinophils (%) (Auto) 0, Basophils (%) (Auto) 0, Neutrophils # (Auto) 13.6H, Lymphocytes # (Auto) 0.5L, Monocytes # (Auto) 0.5, Eosinophils # (Auto) 0.0, Basophils # (Auto) 0.0, Sodium Level 137, Potassium Level 3.9, Chloride Level 108H, Carbon Dioxide Level 18L, Anion Gap 11, Blood Urea Nitrogen 20H, Creatinine 1.14, Estimat Glomerular Filtration Rate > 60, BUN/Creatinine Ratio 18, Glucose Level 240H, Calcium Level 8.9, Phosphorus Level 2.6, Magnesium Level 1.8 09/04/18 06:10: 09/04/18 06:46: Lactic Acid Level 2.64*H Microbiology 08/31/18 Blood Culture - Preliminary, Resulted No growth 09/01/18 MRSA Screen - Final, Complete MRSA not isolated Assessment/Plan Assessment/Plan Assess & Plan/Chief Complaint PNEUMONIA RESPIRATORY FAILURE HYPERTENSION CORONARY ARTERY DISEASE ACUTE RENAL FAILURE MILD CONGESTIVE HEART FAILURE ANEMIA COPD SLEEP APNEA HYPONATREMIA AND HYPOKALEMIA ULCERATIVE COLITIS PNEUMONIA - ON CEFEPIME AND VANCOMYCIN - CONTINUE WITH CURRENT REGIMEN - SERIAL CHEST XRAYS - NOW ON NASAL CANULA - DEFER TO DR. HESS, PT IS POST BRONCHOSCOPY - WAIT ON CULTURE AND PATHOLOGY FROM BRONCHOSCOPY. RESPIRATORY FAILURE- ON IMPROVED - NOW ON NASAL CANULA HYPERTENSION - RESUMED HOME REGIMEN CORONARY ARTERY DISEASE - PACEMAKER - MILD CONGESTIVE HEART FAILURE- DISCUSSED WITH PT - DEFER TO CARDIOLOGY - SEE ECHO REPORT. ACUTE RENAL FAILURE - MONITOR RENAL FUNCTION - ESPECIALLY WITH THE LARGE DOSE OF LASIX ORDERED BY CARDIOLOGY. ANEMIA -STOP ELIQUIS AND ASPIRIN FOR NOW - WILL HOLD FOR ABOUT 5-6 DAYS AND RESTART PRIOR TO DISCHARGE TO HOME. COPD - CHRONIC - DEFER TO DR. HESS SLEEP APNEA - ON BIPAP AT HS. HYPONATREMIA AND HYPOKALEMIA - REPLACE NEEDED ULCERATIVE COLITIS - LIALDA ON HOLD RIGHT NOW Clinical Quality Measures AMI/AHF: ASA po Prior to arrival: No DVT/VTE Risk/Contraindication: Risk Factor Score Per Nursin RFS Level Per Nursing on Admit: 4+=Very High CODEY BARILLAS MD Sep 04, 2018 08:38
[2018-09-04 08:39] LABS: BODY FLUID APPEARENCE MOD BLDY; BODY FLUID COLOR RED; BODY FLUID SOURCE PLEURAL
--- NOTE | 2018-09-04 08:47 | Progress Note-Cardiology ---
Cardiology SOAP Progress Note Subjective: Sitting up in bed. States he is feeling better today. No c/o CP. Dyspnea gradually improving. No further report of hemoptysis. S/P bronch. C/O gen weakness. Objective: I&O/Vital Signs 09/04/18 09/04/18 09/04/18 09/04/18 00:10 01:00 01:00 01:56 Temp 98.6 Pulse 64 61 Resp 18 B/P (MAP) 139/87 (104) Pulse Ox 93 96 O2 Delivery High Flow N/C High Flow N/C O2 Flow Rate 4.00 3.00 09/04/18 09/04/18 09/04/18 09/04/18 02:00 03:00 03:35 03:35 Temp 97.6 Pulse 64 63 Resp 19 19 B/P (MAP) 155/63 (93) 141/74 (96) Pulse Ox 96 98 97 O2 Delivery High Flow N/C High Flow N/C High Flow N/C O2 Flow Rate 4.00 4.00 3.00 09/04/18 09/04/18 09/04/18 09/04/18 04:00 05:00 05:48 06:00 Pulse 63 60 60 Resp 20 19 20 B/P (MAP) 134/84 (101) 140/76 (97) 152/74 (100) Pulse Ox 95 97 94 97 O2 Delivery High Flow N/C High Flow N/C Nasal Cannula High Flow N/C O2 Flow Rate 4.00 4.00 3.00 4.00 09/04/18 09/04/18 09/04/18 09/04/18 06:10 07:00 07:00 08:00 Pulse 66 68 61 Resp 20 28 23 B/P (MAP) 140/63 (88) 146/74 (98) Pulse Ox 97 94 O2 Delivery High Flow N/C High Flow N/C O2 Flow Rate 4.00 4.00 09/04/18 09/04/18 09/04/18 09/04/18 08:00 08:00 09:22 10:00 Temp 97.6 Pulse 64 60 Resp 26 29 B/P (MAP) 146/89 (108) 167/78 (107) Pulse Ox 95 93 94 O2 Delivery High Flow N/C High Flow N/C High Flow N/C O2 Flow Rate 4.00 4.00 4.00 09/04/18 09/04/18 11:00 11:22 Pulse 64 Resp 32 B/P (MAP) 175/81 (112) Pulse Ox 93 92 O2 Delivery High Flow N/C Nasal Cannula O2 Flow Rate 4.00 3.00 09/04/18 00:00 Intake Total 2150 ml Output Total 891 ml Balance 1259 ml Weight (Pounds): 198 Weight (Ounces): 8.0 Weight (Calculated Kilograms): [id number] Constitutional: AAO x 3, well-developed, well-nourished Respiratory: No accessory muscle use; other (fair to good air entry; bibasilar coarse crackles; rhonchi over large airways) Cardiovascular: regular rate-rhythm, S1 and S2, systolic murmur (soft GRETA at card base) Gastrointestional: No tender; distended; No guarding, No rebound; audible bowel sounds Extremities: No clubbing, No cyanosis, No significant edema Neurologic/Psychiatric: oriented x 3, grossly intact, power is 5/5 both on sides Skin: No rash; ulcerations (up to 2 cm lesions on forehead with superficial excoriation and mild redness) Results/Procedures: Labs Laboratory Tests 09/04/18 03:35: White Blood Count 14.6H, Red Blood Count 3.84L, Hemoglobin 12.2L, Hematocrit 36L , Mean Corpuscular Volume 93, Mean Corpuscular Hemoglobin 32, Mean Corpuscular Hemoglobin Concent 34, Red Cell Distribution Width 14.8H, Platelet Count 205, Mean Platelet Volume 10.0, Neutrophils (%) (Auto) 93H, Lymphocytes (%) (Auto) 3L , Monocytes (%) (Auto) 4, Eosinophils (%) (Auto) 0, Basophils (%) (Auto) 0, Neutrophils # (Auto) 13.6H, Lymphocytes # (Auto) 0.5L, Monocytes # (Auto) 0.5, Eosinophils # (Auto) 0.0, Basophils # (Auto) 0.0, Sodium Level 137, Potassium Level 3.9, Chloride Level 108H, Carbon Dioxide Level 18L, Anion Gap 11, Blood Urea Nitrogen 20H, Creatinine 1.14, Estimat Glomerular Filtration Rate > 60, BUN/Creatinine Ratio 18, Glucose Level 240H, Lactic Acid Level 3.49*H, Calcium Level 8.9, Phosphorus Level 2.6, Magnesium Level 1.8 09/04/18 06:10: Body Fluid Source PLEURAL, Body Fluid Color RED, Body Fluid Appearance MOD BLDY, Body Fluid Polynuclear WBCs 30, Body Fluid Mononuclear WBCs 0, Body Fluid Lymphocytes 8, Body Fluid Other Cells 62 09/04/18 06:46: Lactic Acid Level 2.64*H 09/04/18 11:47: Glucometer 183H Microbiology 08/31/18 Blood Culture - Preliminary, Resulted No growth 09/01/18 MRSA Screen - Final, Complete MRSA not isolated A/P: Assessment: Bilateral pneumonia - management per Pulmonary/Medical services Pulmonary hemorrhage with hemoptysis - s/p bronch Chronic diastolic CHF Echo of September 02, 2018: LVEF 60-65%; LA mod dilated; mild to mod MR; AoV thickening, consistent with sclerosis; mild to mod TR; PASP 40 mmHg 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 Cardiac cath from December 30, 2013 in which successful GAURI x 2, one to the proximal and one to the mid vessel LAD, was done. 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 Pacemaker currently in the VVIR mode, due to permanent atrial fib. The patient had a pulse generator change out on 12/18/2011. The device is functioning normally per last interrogation of 06/26/18, but appears to be approaching DIMITRIOS (10 month: 1 month to 19 months). Device interrogation of 09-02-18 shows device to be functioning normally with approx 12 months left on the battery. History of ulcerative colitis, being managed by Dr. Parsons and Dr. Seymour Stroke prophylaxis with Eliquis - currently being held Sleep apnea for which he is following with Dr Mijares - Bi-pap therapy Hyperlipidemia being treated with rosuvastatin. Mild carotid arterial disease that has been followed by Dr. Mcdaniel History of cholecystectomy. Impaired fasting glucose Elevated BMI of approx 30 S/p melanoma removal from the back in 2018, followed by Dr Parsons Plan: * Pulmonary hemorrhage with hemoptysis; s/p bronch this morning by Dr. Mijares * Eliquis currently be withheld * ASA currently being withheld * BP not well controlled - previously on Metoprolol tartrate 100mg BID and Losartan 25 mg daily - will restart low dose BB and monitor * Monitor labs * Treatment pneumonia is with the [facility] * We have discussed his care with Dr Parsons today * PT for strengthening Physician Assessment Physician Assessment Gen malaise and weakness and mod shortness of breath No cp or palp or syncope Lungs: scattered rhonchi, bibasilar coarse crackles Cor: reg Ext: no c/c/e A&R * As documented in our note above that I updated (italics) and as noted below * Complex management * I discussed his case with Dr Mijares of the [facility] today * Mr Jaimes has been found to have evidence of pulmonary bleeding. We would need to hold Eliquis and ASA for that reason. After stability has been achieved, we would like to resume ASA first and then Plavix a few days later. I discussed this issue in detail with him and his . They understand and concur Clinical Quality Measures AMI/AHF: ASA po Prior to arrival: VIET Leal Sep 04, 2018 08:47 TOSHA JUNIOR MD [facility] Sep 04, 2018 12:00
--- NOTE | 2018-09-04 08:53 | Diagnostic Imaging Report ---
EXAM: CHEST 1 VIEW, AP/PA ONLY. INDICATION: Pneumonia. Hypoxia. Sternotomy. COMPARISON: Chest radiograph of 09/03/2018. FINDINGS: Cardiomegaly with prominent central pulmonary vascularity and interstitial opacities, similar to the prior exam. Sternotomy with mediastinal markers. Cardiac pacer. No pleural effusion or pneumothorax. No acute osseous findings. IMPRESSION: Stable interstitial opacities in both lungs suggesting interstitial edema with cardiomegaly. Dictated by: Dictated on workstation # [id number]
[2018-09-04 08:55] LABS: BF OTHER CELLS 62 %; LYMPHOCYTES,BODY FLUID 8 %
--- NOTE | 2018-09-04 10:40 | Physical Therapy Evaluation ---
PT Evaluation-General Medical Diagnosis Admission Date Aug 31, 2018 at 17:14 Medical Diagnosis: SRAVANTHI pneumonia Onset Date: Aug 31, 2018 Therapy Diagnosis Therapy Diagnosis: weakness Height/Weight Height (Feet): 5 Height (Inches): 8.00 Weight (Pounds): 198 Weight (Ounces): 8.0 Precautions Precautions/Isolations: Standard Precautions, Contact/Enteric Isolation Referral Physician: Jaqueline Reason for Referral: Evaluation/Treatment Medical History Pertinent Medical History: CABG, CAD, COPD, HTN Additional Medical History asthma; acute renal failure Current History pt admitted to ICU post ER visit with not feeling well; admitted with SRAVANTHI pneumonia. Reviewed History: Yes Social History Home: Single Level Current Living Status: Spouse Entry Into Home: Stairs With Railing Prior/Core FIM Prior Level of Function Therapy Code Descriptions/Definitions Functional [place] Measure: 0=Not Assessed/NA 4=Minimal Assistance 1=Total Assistance 5=Supervision or Setup 2=Maximal Assistance 6=Modified Hinkle 3=Moderate Assistance 7=Complete Hinkle Therapy Quality Codes: 6 Independent with activity with or without an assistive device 5 Patient requires set up or clean up by helper. Patient completes activity by themselves 4 Supervision or touching assist (CGA). [place] provide cues , steadying assist 3 The helper provides less than half the effort to complete the activity 2 The helper provides more than half the effort to complete the activity 1 Dependent. The helper does all the effort to complete an activity 7 Patient refused to complete or attempt activity 9 The patient did not perform the activity before the current illness or injury 88 Not attempted due to Medical conditions or safety concerns Functional Abilities and Goals: Independent: Patient completed the activities by him/herself, with or without an assistive device, with no assistance from a helper. Needed Some Help: Patient needed partial assistance from another person to complete activities. Dependent: A helper completed the activities for the patient. Unknown: Not Applicable: Bed Mobility: 7 Transfers (B,C,W/C) (FIM): 7 Gait: 7 Stairs: 7 Indoor Mobility (Ambulation): Independent Stairs: Independent independent and active in the community. PT Evaluation-Current Subjective Agrees to PT. Reports he feels "drunk" this morning. Wants to sit up in the chair. Objective Patient Orientation: Person, Place, Time, Situation Problem Solving: Good Attachments: Oxygen, IV ROM/Strength ROM Lower Extremities WNL Strength Lower Extremities WFL Integumentary/Posture Integumentary intact Bowel Incontinence: No Bladder Incontinence: No Posture normal and symmetrical Neuromuscular (Tone, Coordination, Reflexes) no noted functional deficits Sensory Vision: Functional Hearing: Functional Hand Dominance: Right Sensation Right Lower Extremit: Intact Sensation Left Lower Extremity: Intact Transfers Therapy Code Descriptions/Definitions Functional [place] Measure: 0=Not Assessed/NA 4=Minimal Assistance 1=Total Assistance 5=Supervision or Setup 2=Maximal Assistance 6=Modified Hinkle 3=Moderate Assistance 7=Complete [place] Transfers (B, C, W/C) (FIM): 3 Supine to/from Sit: 4 Sit to/from Stand: 4 bed t/f WC(FIM only if WC use): 3 unsteady in standing and required assist to stay upright. legs are weak in standing and turning. Gait Mode of Locomotion: Walk Anticipated Mode of Locomotion: Walk Comments/Gait Description Pt did not walk this date. Balance Sitting Static: Good Sitting Dynamic: Good Standing Static: Fair Standing Dynamic: Fair Assessment/Needs Pt presents with pneumonia and is being medically managed. He will benefit from skilled PT to promote functional activity and strength to allow him to return home as he was before Rehab Potential: Good PT Shelter Goals Shelter Goals PT Chief Risk Officer Goals Time Frame: Sep 11, 2018 Transfers (B,C,W/C) (FIM): 7 Gait (FIM): 6 PT Plan Problem List Problem List: Activity Tolerance, Functional Strength, Safety, Balance, Gait, Transfer Treatment/Plan Treatment Plan: Continue Plan of Care Treatment Plan: Bed Mobility, Education, Functional Activity [place], Functional Strength, Gait, Therapeutic Exercise, Transfers Treatment Duration: Sep 11, 2018 Frequency: 6 times per week Estimated Hrs Per Day: .5 hour per day Patient and/or Family Agrees t: Yes Safety Risks/Education Patient Education: Safety Issues (circulation; instructed in AP and QS) Teaching Recipient: Patient Teaching Methods: Discussion Response to Teaching: Verbalize Understanding, Return Demonstration Time/GCodes Time In: 1000 Time Out: 1025 Total Billed Treatment Time: 25 Total Billed Treatment visit [id number] FA 15 NERY DALEY PT Sep 04, 2018 10:40
[2018-09-04] MEDS: meTOprolol TARTRATE 50 MG (LOPRESSOR) TAB PO SCH ×2 (10:41→21:36)
--- NOTE | 2018-09-04 11:15 | NUR ---
Pastoral care visit
[2018-09-04] MEDS: MELATONIN 3 MG TABLET PO SCH (21:34)
[2018-09-05] VITALS (15 sets, daily range): BP systolic 81–194; BP diastolic 39–92
--- NOTE | 2018-09-05 01:15 | NUR ---
BED ALARM ACTIVATED BY PATIENT. ENTERED ROOM TO FIND PATIENT SITTING AT THE END OF THE BED WITH BLOOD ON HIMSELF AND ON THE FLOOR. PATIENT HAD PULLED OUT HIS RIGHT UPPER ARM MIDLINE AND HEP LOC. IN HIS LEFT AC. PATIENT STATED THAT HE WOKE UP AND NEEDED TO URINATE AND FORGOT WHERE HE WAS AND FELT LIKE HE "COULDN'T BREATHE" AND HAD BEEN DREAMING. PATIENT ORIENTED X4 WITH NO RESPIRATORY DISTRESS. O2 REAPPLIED AT HIGH FLOW 6L NC. PATIENT WASHED UP AND GIVEN NEW GOWN. PATIENT REPEATEDLY APOLOGIZING FOR THE MESS. PATIENT REASSURED THAT HIS SAFETY WAS THE ONLY CONCERN. PATIENT DENIES ANY NEEDS AT THIS TIME WHILE BEING REPOSITIONED BACK IN BED. NEW IV RESTARTED WITH ATTEMPT X1. 0300-PATIENT'S BED ALARM AGAIN ACTIVATED. PATIENT AGAIN SITTING AT END OF BED AND STATING THAT HE NEEDS TO URINATE. PATIENT UPSET AND STATES THAT HE "PUT HIS CALL LIGHT ON 20 MIN AGO". THIS RN APOLOGIZED TO PATIENT AND STATED THAT SHE WAS NOT AWARE THAT HE HAD PUT HIS CALL LIGHT ON AND NEEDED ASSISTANCE. PATIENT STATES "WELL, I TOLD THE LADY WHO ANSWERED THE LIGHT". PATIENT REASSURED THAT IT WAS NOT INTENTIONAL FOR HIM TO BE LEFT WAITING 2O MIN FOR HELP. PATIENT ASSISTED WITH URINATION AND ASSISTED BACK TO BED. THIS RN INQUIRED WITH [employer] WHO DENIED THAT SHE HAD TALKED TO PATIENT OR THAT HE HAD HAD HIS CALL LIGHT ON WITHIN THE LAST 30 MIN.
[2018-09-05] MEDS: RT-ALBUTEROL/IPRATROPIUM 3 ML (DUONEB) VIAL INH SCH ×5 (03:27→19:11)
[2018-09-05 03:44] LABS: BASOPHILS % (AUTO) 0 % (0-10); EOSINOPHILS % (AUTO) 0 % (0-10); HEMATOCRIT 36 % (40-54); HEMOGLOBIN 12.3 G/DL (13.3-17.7); LYMPHOCYTES # (AUTO) 0.6 X 10^3 (1.0-4.0); LYMPHOCYTES % (AUTO) 4 % (12-44); MEAN CORPUSCULAR HEMOGLOBIN 32 PG (25-34); MEAN CORPUSCULAR HGB CONC 34 G/DL (32-36); MEAN CORPUSCULAR VOLUME 93 FL (80-99); MEAN PLATELET VOLUME 9.8 FL (7.4-10.4); MONOCYTES # (AUTO) 0.8 X 10^3 (0.0-1.0); MONOCYTES % (AUTO) 5 % (0-12); NEUTROPHILS # (AUTO) 12.9 X 10^3 (1.8-7.8); NEUTROPHILS % (AUTO) 91 % (42-75); PLATELET COUNT 226 10^3/uL (130-400); RED CELL DISTRIBUTION WIDTH 14.9 % (10.0-14.5); WHITE BLOOD COUNT 14.3 10^3/uL (4.3-11.0)
[2018-09-05] MEDS: CEFEPIME 1,000 MG/SWFI 10 ML IV PUSH IV SCH ×8 (03:51→22:08)
[2018-09-05 04:16] LABS: ALANINE AMINOTRANSFERASE 31 U/L (0-55); ALKALINE PHOSPHATASE 64 U/L (40-136); BILIRUBIN,DIRECT 0.4 MG/DL (0.0-0.3); BILIRUBIN,INDIRECT 0.3 MG/DL; BILIRUBIN,TOTAL 0.7 MG/DL (0.1-1.0); BUN/CREATININE RATIO 17; CALCIUM 8.9 MG/DL (8.5-10.1); CARBON DIOXIDE 20 MMOL/L (21-32); CHLORIDE 107 MMOL/L (98-107); GFR ESTIMATED > 60; GLUCOSE 209 MG/DL (70-105); MAGNESIUM 1.9 MG/DL (1.8-2.4); PHOSPHORUS 2.3 MG/DL (2.3-4.7); POTASSIUM 4.1 MMOL/L (3.6-5.0); SODIUM 139 MMOL/L (135-145); TOTAL PROTEIN 5.9 GM/DL (6.4-8.2)
[2018-09-05] MEDS: KCL 20 MEQ TAB (K-DUR) PO SCH (04:28)
[2018-09-05] MEDS: POTASSIUM CL 10MEQ/50ML IVPB 50 ML IV SCH (04:28)
[2018-09-05] MEDS: MAGNESIUM 1 GM/100 ML IVPB 100 ML IV SCH (04:28)
[2018-09-05] MEDS: inSUlin ASPART (NovoLOG) 1 UNIT/0.01 ML (CHARGE PER UNIT) SQ SCH ×3 (05:12→17:38)
[2018-09-05] MEDS: methylPREDNISolone 40 MG/ML (Solu-MEDROL) VIAL IV SCH ×3 (05:12→17:38)
[2018-09-05] MEDS: LACTOBACILLUS ACIDOPHILUS (PROBIOTIC) CAPSULE PO SCH ×2 (05:13→16:52)
--- NOTE | 2018-09-05 07:51 | Diagnostic Imaging Report ---
INDICATION: Pneumonia and hypoxia. Comparison made with prior examination 09/04/2018. FINDINGS: There is cardiomegaly. There is some venous congestion. There has been previous median sternotomy and coronary bypass graft. Pacemaker overlies left hemithorax. There is no pleural effusion or pneumothorax. Mediastinum is unremarkable. IMPRESSION: Persistent cardiomegaly and some central pulmonary venous congestion. Dictated by: Dictated on workstation # [id number]
[2018-09-05] MEDS: PANTOPRAZOLE 40 MG (PROTONIX) VIAL IV SCH (08:20)
[2018-09-05] MEDS: LORATADINE (CLARITIN) 10 MG TAB PO SCH (08:21)
[2018-09-05] MEDS: DILTIAZEM 300 MG (CARDIZEM CD) CAP PO SCH (08:21)
[2018-09-05] MEDS: meTOprolol TARTRATE 50 MG (LOPRESSOR) TAB PO SCH ×2 (08:21→21:00)
[2018-09-05] MEDS: LOPERAMIDE 2 MG (IMODIUM) CAP PO SCH ×2 (08:21→21:00)
--- NOTE | 2018-09-05 09:22 | Progress Note-Cardiology ---
Cardiology SOAP Progress Note Subjective: Sitting up in a recliner at the bedside. States he feels much better today. Feels SOB is improving. No c/o CP, palpitations, syncope or near syncope. Objective: I&O/Vital Signs 09/05/18 09/05/18 09/05/18 09/05/18 03:28 03:55 04:00 04:00 Temp 98.1 Pulse 63 B/P (MAP) 151/75 (100) Pulse Ox 94 95 92 O2 Delivery Nasal Cannula High Flow N/C High Flow N/C O2 Flow Rate 4.00 6.00 6.00 09/05/18 09/05/18 09/05/18 09/05/18 05:16 06:00 06:27 07:00 Pulse 65 61 61 B/P (MAP) 172/81 (111) Pulse Ox 94 95 95 93 O2 Delivery High Flow N/C High Flow N/C Nasal Cannula High Flow N/C O2 Flow Rate 6.00 6.00 4.00 6.00 09/05/18 09/05/18 09/05/18 09/05/18 07:00 08:00 08:00 09:00 Pulse 75 66 62 B/P (MAP) Pulse Ox 94 92 92 O2 Delivery High Flow N/C High Flow N/C High Flow N/C O2 Flow Rate 6.00 6.00 6.00 09/05/18 09/05/18 09/05/18 09/05/18 09:49 10:00 11:00 11:30 Temp 99.2 Pulse 63 64 B/P (MAP) 81/43 (56) 135/76 (95) Pulse Ox 95 93 94 O2 Delivery Nasal Cannula High Flow N/C High Flow N/C O2 Flow Rate 4.00 6.00 6.00 09/05/18 09/05/18 09/05/18 12:00 12:00 12:47 Pulse 79 61 B/P (MAP) 141/39 (73) Pulse Ox 93 94 O2 Delivery High Flow N/C High Flow N/C O2 Flow Rate 6.00 6.00 09/05/18 00:00 Intake Total 1760 ml Output Total 860 ml Balance 900 ml Weight (Pounds): 198 Weight (Ounces): 8.0 Weight (Calculated Kilograms): 90.799578 Constitutional: AAO x 3, well-developed, well-nourished Respiratory: No accessory muscle use; other (fair to good air entry; bibasilar coarse crackles; rhonchi over large airways) Cardiovascular: regular rate-rhythm, S1 and S2, systolic murmur (soft GRETA at card base) Gastrointestional: No tender; distended; No guarding, No rebound; audible bowel sounds Extremities: No clubbing, No cyanosis, No significant edema Neurologic/Psychiatric: oriented x 3, grossly intact, power is 5/5 both on sides Skin: No rash; ulcerations (up to 2 cm lesions on forehead with superficial excoriation and mild redness) Results/Procedures: Labs Laboratory Tests 09/04/18 18:08: Glucometer 241H 09/04/18 22:58: Glucometer 247H 09/05/18 03:15: White Blood Count 14.3H, Red Blood Count 3.89L, Hemoglobin 12.3L, Hematocrit 36L , Mean Corpuscular Volume 93, Mean Corpuscular Hemoglobin 32, Mean Corpuscular Hemoglobin Concent 34, Red Cell Distribution Width 14.9H, Platelet Count 226, Mean Platelet Volume 9.8, Neutrophils (%) (Auto) 91H, Lymphocytes (%) (Auto) 4L, Monocytes (%) (Auto) 5, Eosinophils (%) (Auto) 0, Basophils (%) (Auto) 0, Neutrophils # (Auto) 12.9H, Lymphocytes # (Auto) 0.6L, Monocytes # (Auto) 0.8, Eosinophils # (Auto) 0.0, Basophils # (Auto) 0.0, Sodium Level 139, Potassium Level 4.1, Chloride Level 107, Carbon Dioxide Level 20L, Anion Gap 12, Blood Urea Nitrogen 17, Creatinine 1.00, Estimat Glomerular Filtration Rate > 60, BUN/Creatinine Ratio 17, Glucose Level 209H, Calcium Level 8.9, Phosphorus Level 2.3, Magnesium Level 1.9, Total Bilirubin 0.7, Direct Bilirubin 0.4H, Indirect Bilirubin 0.3, Aspartate Amino Transf (AST/SGOT) 29, Alanine Aminotransferase (ALT/SGPT) 31, Alkaline Phosphatase 64, Total Protein 5.9L, Albumin 3.0L 09/05/18 11:43: Glucometer 202H Microbiology 08/31/18 Blood Culture - Preliminary, Resulted No growth 09/04/18 Gram Stain - Final, Resulted 09/04/18 Bronchial Culture - Preliminary, Resulted Usual upper respiratory evette 09/04/18 Fungal Culture 1, Resulted Pending Procedures NAME: [facility] REC#: [id number] PT STATUS: ADM IN : 1940 PHYSICIAN: JUAN MIJARES DO ADMIT DATE: 08/31/18/ICU Signed Date of Exam: 09/05/18 CHEST 1 VIEW, AP/PA ONLY INDICATION: Pneumonia and hypoxia. Comparison made with prior examination 09/04/2018. FINDINGS: There is cardiomegaly. There is some venous congestion. There has been previous median sternotomy and coronary bypass graft. Pacemaker overlies left hemithorax. There is no pleural effusion or pneumothorax. Mediastinum is unremarkable. IMPRESSION: Persistent cardiomegaly and some central pulmonary venous congestion. Dictated by: Dictated on workstation # [id number] Dict: 09/05/18724 Trans: 09/05/18827 Interpreted by: MYAH SOLORZANO MD Electronically signed by: MYAH SOLORZANO MD 09/05/1828 A/P: Assessment: Bilateral pneumonia - management per Pulmonary/Medical services Pulmonary hemorrhage with hemoptysis - s/p bronch Chronic diastolic CHF Echo of September 02, 2018: LVEF 60-65%; LA mod dilated; mild to mod MR; AoV thickening, consistent with sclerosis; mild to mod TR; PASP 40 mmHg 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 Cardiac cath from December 30, 2013 in which successful GAURI x 2, one to the proximal and one to the mid vessel LAD, was done. 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 Pacemaker currently in the VVIR mode, due to permanent atrial fib. The patient had a pulse generator change out on 12/18/2011. The device is functioning normally per last interrogation of 06/26/18, but appears to be approaching DIMITRIOS (10 month: 1 month to 19 months). Device interrogation of 09-02-18 shows device to be functioning normally with approx 12 months left on the battery. History of ulcerative colitis, being managed by Dr. Parsons and Dr. Seymour Stroke prophylaxis with Eliquis - currently being held Sleep apnea for which he is following with Dr Mijares - Bi-pap therapy Hyperlipidemia being treated with rosuvastatin. Mild carotid arterial disease that has been followed by Dr. Mcdaniel History of cholecystectomy. Impaired fasting glucose Elevated BMI of approx 30 S/p melanoma removal from the back in 2018, followed by Dr Parsons Plan: * Pulmonary hemorrhage; s/p bronch on 09-04-18.. Therefore continue to hold Eliquis and ASA for now. * BP improved with addition of BB * Monitor labs * Treatment pneumonia is with the [facility] Phys[facility] Assessment Physician Assessment Feels a bit stronger today. No cp. No shortness of breath at rest. No palp. No syncope Lungs: diminished air entry at the bases Cor: reg Ext: no c/c/e A&R * As documented in our note above that I updated and as noted below * Still not suitable for OAC/antiplatelet due to reasons noted above Clinical Quality Measures AMI/AHF: ASA po Prior to arrival: VIET Leal FIELD REP Sep 05, 2018 09:22 TOSHA JUNIOR MD [facility] Sep 05, 2018 14:05
[2018-09-05] MEDS: LACTATED RINGERS 1,000 ML IV SCH ×3 (10:42→19:23)
--- NOTE | 2018-09-05 11:12 | Physical Therapy Daily Note ---
PT Daily Note-Current Subjective Patient is more alert and spouse is present. Agrees to PT. Pain Numeric Pain Scale: 0-No Pain Location: No Pain Reported Mental Status Patient Orientation: Person, Time, Situation Attachments: Oxygen Transfers Therapy Code Descriptions/Definitions Functional [place] Measure: 0=Not Assessed/NA 4=Minimal Assistance 1=Total Assistance 5=Supervision or Setup 2=Maximal Assistance 6=Modified [place] 3=Moderate Assistance 7=Complete [place] Therapy Quality Codes: 6 Independent with activity with or without an assistive device 5 Patient requires set up or clean up by helper. Patient completes activity by themselves 4 Supervision or touching assist (CGA). [place] provide cues , steadying assist 3 The helper provides less than half the effort to complete the activity 2 The helper provides more than half the effort to complete the activity 1 Dependent. The helper does all the effort to complete an activity 7 Patient refused to complete or attempt activity 9 The patient did not perform the activity before the current illness or inj ury 88 Not attempted due to Medical conditions or safety concerns Transfers (B, C, W/C) (FIM): 4 Scootin Sit to/from Stand: 4 CGA for safety Gait Training Gait (FIM): 4 Distance (FIM): 3=150 ft Distance: 250' Gait Level of Assist: 4 Gait Persons Needed: 1 Gait Assistive Device: FWW weakness noted with gait/skilled verbal instruction for body placement in FWW Exercises Seated Therapy Exercises: Ankle pumps, Long arc quads Seated Reps: 15 Assessment Patient improving with treatment plan and remains up in recliner with needs met. PT to increase activity as tolerated by patient. PT Penitentiary Goals Medical Fee Clerk Goals PT Penitentiary Goals Time Frame: Sep 11, 2018 Transfers (B,C,W/C) (FIM): 7 Gait (FIM): 6 PT Plan Treatment/Plan Treatment Plan: Continue Plan of Care Treatment Plan: Bed Mobility, Education, Functional Activity [place], Functional Strength, Gait, Therapeutic Exercise, Transfers Treatment Duration: Sep 11, 2018 Frequency: 6 times per week Estimated Hrs Per Day: .5 hour per day Patient and/or Family Agrees t: Yes Time/GCodes Time In: 1015 Time Out: 1031 Total Billed Treatment Time: 16 Total Billed Treatment 1 visit GT 16 min CHIDI HUANG PT Sep 05, 2018 11:12
--- NOTE | 2018-09-05 14:25 | NUR ---
REPORT FROM CENTRAL SUPPLY NURSE SYEDA. ROOM 405 IS NOT CLEAN OF THIS TIME
--- NOTE | 2018-09-05 15:15 | NUR ---
PATIENT TO ROOM 405 VIA WHEELED RECLINER CHAIR BY ICU PCCT. PATIENT SETTLED IN ROOM 4L HIGH FLOW OXYGEN, HOME MEDICATIONS LOCKED IN MED BAILER TENDERS SUPERVISOR ROOM. PATIENT'S IS PUTTING THINGS AWAY AND SETTING UP HIS HOME CPAP MACHINE. PATIENT DENIES ANY NEEDS AT THIS TIME. WILL CONTINUE TO MONITOR.
[2018-09-05] MEDS ORDERED: CEFEPIME 1 GM (MAXIPIME) VIAL ONE ×2 (16:40→20:31)
[2018-09-05] MEDS ORDERED: WATER (STERILE) FOR INJECTION 10 ML ONE ×2 (16:40→20:31)
[2018-09-05] MEDS: MELATONIN 3 MG TABLET PO SCH (21:00)
--- NOTE | 2018-09-05 21:24 | Progress Note ---
Subjective Date Seen by a Provider: Sep 05, 2018 Time Seen by a Provider: 21:20 Subjective/Events-last exam PT REPORTS THAT HE IS FEELING BETTER, HAD AN EPISODE OF CONFUSION LAST NIGHT, HE IS FEELING LIKE HE MAY REST WELL TONIGHT. Review of Systems General: Fatigue HEENT: No Head Aches Pulmonary: Dyspnea, Cough Cardiovascular: No: Chest Pain, Palpitations Gastrointestinal: No: Nausea, Abdominal Pain Genitourinary: No Dysuria; Frequency Neurological: Weakness; No: Confusion Focused Exam Lactate Level 09/03/18 09:31: Lactic Acid Level 3.24*H 09/04/18 03:35: Lactic Acid Level 3.49*H 09/04/18 06:46: Lactic Acid Level 2.64*H Objective Exam Last Set of Vital Signs Vital Signs Date Time Temp Pulse Resp B/P (MAP) Pulse Ox O2 Delivery O2 Flow Rate FiO2 09/05/18 20:58 64 160/70 (100) 09/05/18 20:43 97 09/05/18 19:46 98.0 20 High Flow N/C 4.00 09/03/18 14:36 32 Capillary Refill : Less Than 3 Seconds I&O Intake and Output 09/05/18 00:00 Intake Total 3160 ml Output Total 1905 ml Balance 1255 ml Intake Oral 1150 ml IV Total 2010 ml Output Urine Total 1905 ml # Bowel Movements 1 General: Alert, Oriented X3, Cooperative, No Acute Distress HEENT: Atraumatic, PERRLA Neck: Supple, No JVD Lungs: Other (IMPROVED AIR MOVEMENT THROUGHOUT) Heart: Regular Rate, Normal S1, Normal S2 Abdomen: Normal Bowel Sounds, Soft Extremities: No Clubbing, No Cyanosis, Other (DOUGH-LIKE QUALITY TO ABDOMEN, LOWER LEGS, ARMS/HANDS) Neuro: Cranial Nerves 3-12 NL Psych/Mental Status: Mental Status NL, Mood NL Results Lab Laboratory Tests 09/04/18 22:58: Glucometer 247H 09/05/18 03:15: White Blood Count 14.3H, Red Blood Count 3.89L, Hemoglobin 12.3L, Hematocrit 36L , Mean Corpuscular Volume 93, Mean Corpuscular Hemoglobin 32, Mean Corpuscular Hemoglobin Concent 34, Red Cell Distribution Width 14.9H, Platelet Count 226, Mean Platelet Volume 9.8, Neutrophils (%) (Auto) 91H, Lymphocytes (%) (Auto) 4L, Monocytes (%) (Auto) 5, Eosinophils (%) (Auto) 0, Basophils (%) (Auto) 0, Neutrophils # (Auto) 12.9H, Lymphocytes # (Auto) 0.6L, Monocytes # (Auto) 0.8, Eosinophils # (Auto) 0.0, Basophils # (Auto) 0.0, Sodium Level 139, Potassium Level 4.1, Chloride Level 107, Carbon Dioxide Level 20L, Anion Gap 12, Blood Urea Nitrogen 17, Creatinine 1.00, Estimat Glomerular Filtration Rate > 60, BUN/Creatinine Ratio 17, Glucose Level 209H, Calcium Level 8.9, Phosphorus Level 2.3, Magnesium Level 1.9, Total Bilirubin 0.7, Direct Bilirubin 0.4H, Indirect Bilirubin 0.3, Aspartate Amino Transf (AST/SGOT) 29, Alanine Aminotransferase (ALT/SGPT) 31, Alkaline Phosphatase 64, Total Protein 5.9L, Albumin 3.0L 09/05/18 11:43: Glucometer 202H 09/05/18 17:25: Glucometer 228H Microbiology 08/31/18 Blood Culture - Preliminary, Resulted No growth 09/04/18 Mycobacterial Culture - Preliminary, Resulted Assessment/Plan Assessment/Plan Assess & Plan/Chief Complaint PNEUMONIA RESPIRATORY FAILURE HYPERTENSION CORONARY ARTERY DISEASE ACUTE RENAL FAILURE MILD CONGESTIVE HEART FAILURE ANEMIA COPD SLEEP APNEA HYPONATREMIA AND HYPOKALEMIA ULCERATIVE COLITIS INSOMNIA PNEUMONIA - ON CEFEPIME AND VANCOMYCIN - CONTINUE WITH CURRENT REGIMEN - SERIAL CHEST XRAYS - NOW ON NASAL CANULA - DEFER TO DR. HESS, PT IS POST BRONCHOSCOPY - WAIT ON CULTURE AND PATHOLOGY FROM BRONCHOSCOPY. PT MOVED DOWN TO 4TH FLOOR. WEAKNESS - FROM PROLONGED HOSPITALIZATION - PT RECEIVING THERAPY - DEPENDING ON HOW HE DOES, WE WILL CONSIDER INPT REHAB. RESPIRATORY FAILURE- ON IMPROVED - NOW ON NASAL CANULA HYPERTENSION - RESUMED HOME REGIMEN CORONARY ARTERY DISEASE - PACEMAKER - MILD CONGESTIVE HEART FAILURE- DISCUSSED WITH PT - DEFER TO CARDIOLOGY - SEE ECHO REPORT. ACUTE RENAL FAILURE - MONITOR RENAL FUNCTION - ESPECIALLY WITH THE LARGE DOSE OF LASIX ORDERED BY CARDIOLOGY. ANEMIA -STOP ELIQUIS AND ASPIRIN FOR NOW - WILL HOLD FOR ABOUT 5-6 DAYS AND RESTART PRIOR TO DISCHARGE TO HOME. COPD - CHRONIC - DEFER TO DR. HESS SLEEP APNEA - ON BIPAP AT HS. HYPONATREMIA AND HYPOKALEMIA - REPLACE NEEDED ULCERATIVE COLITIS - LIALDA ON HOLD RIGHT NOW. INSOMNIA - SHOULD IMPROVE WITH PATIENT ON 4TH FLOOR, IV ANXIOLYTIC AND MELATONIN. Clinical Quality Measures AMI/AHF: ASA po Prior to arrival: No DVT/VTE Risk/Contraindication: Risk Factor Score Per Nursin RFS Level Per Nursing on Admit: 4+=Very High CODEY BARILLAS MD Sep 05, 2018 21:24
[2018-09-06 00:18] VITALS: BP 136/66
[2018-09-06] MEDS: methylPREDNISolone 40 MG/ML (Solu-MEDROL) VIAL IV SCH ×5 (00:36→23:23)
[2018-09-06] MEDS: inSUlin ASPART (NovoLOG) 1 UNIT/0.01 ML (CHARGE PER UNIT) SQ SCH ×5 (00:36→23:23)
[2018-09-06] MEDS ORDERED: CEFEPIME 1 GM (MAXIPIME) VIAL ONE (02:58)
[2018-09-06] MEDS ORDERED: WATER (STERILE) FOR INJECTION 10 ML ONE (02:58)
[2018-09-06] MEDS: CEFEPIME 1,000 MG/SWFI 10 ML IV PUSH IV SCH ×8 (03:17→21:12)
[2018-09-06] MEDS: LACTATED RINGERS 1,000 ML IV SCH (03:26)
[2018-09-06 04:34] VITALS: BP 175/85
[2018-09-06 04:43] LABS: BASOPHILS % (AUTO) 0 % (0-10); EOSINOPHILS % (AUTO) 0 % (0-10); HEMATOCRIT 36 % (40-54); HEMOGLOBIN 12.1 G/DL (13.3-17.7); LYMPHOCYTES # (AUTO) 0.9 X 10^3 (1.0-4.0); LYMPHOCYTES % (AUTO) 6 % (12-44); MEAN CORPUSCULAR HEMOGLOBIN 31 PG (25-34); MEAN CORPUSCULAR HGB CONC 34 G/DL (32-36); MEAN CORPUSCULAR VOLUME 93 FL (80-99); MEAN PLATELET VOLUME 9.9 FL (7.4-10.4); MONOCYTES # (AUTO) 0.6 X 10^3 (0.0-1.0); MONOCYTES % (AUTO) 4 % (0-12); NEUTROPHILS # (AUTO) 13.7 X 10^3 (1.8-7.8); NEUTROPHILS % (AUTO) 90 % (42-75); PLATELET COUNT 215 10^3/uL (130-400); RED CELL DISTRIBUTION WIDTH 14.4 % (10.0-14.5); WHITE BLOOD COUNT 15.3 10^3/uL (4.3-11.0)
[2018-09-06 05:01] LABS: BUN/CREATININE RATIO 25; CALCIUM 8.5 MG/DL (8.5-10.1); CARBON DIOXIDE 23 MMOL/L (21-32); CHLORIDE 105 MMOL/L (98-107); GFR ESTIMATED > 60; GLUCOSE 176 MG/DL (70-105); MAGNESIUM 2.1 MG/DL (1.8-2.4); PHOSPHORUS 2.7 MG/DL (2.3-4.7); POTASSIUM 3.9 MMOL/L (3.6-5.0); SODIUM 138 MMOL/L (135-145)
[2018-09-06] MEDS: POTASSIUM CL 10MEQ/50ML IVPB 50 ML IV SCH (06:06)
[2018-09-06] MEDS: KCL 20 MEQ TAB (K-DUR) PO SCH (06:07)
[2018-09-06] MEDS: MAGNESIUM 1 GM/100 ML IVPB 100 ML IV SCH (06:07)
[2018-09-06] MEDS: LACTOBACILLUS ACIDOPHILUS (PROBIOTIC) CAPSULE PO SCH ×2 (06:24→16:59)
[2018-09-06 08:00] VITALS: BP 160/81
--- NOTE | 2018-09-06 08:51 | Progress Note-Cardiology ---
Cardiology SOAP Progress Note Subjective: Sitting up in a chair at the bedside. States he feels his SOB is unchanged. No c/o CP, palpitations, syncope or near syncope. Feels LE are swollen making it difficult for him to ambulate. Objective: I&O/Vital Signs 09/06/18 09/06/18 09/06/18 09/06/18 00:18 01:55 04:34 08:00 Temp 96.9 97.6 96.3 Pulse 61 64 62 Resp 22 20 18 B/P (MAP) 136/66 (89) 175/85 (115) 160/81 (107) Pulse Ox 98 94 97 98 O2 Delivery High Flow N/C NIV CPAP High Flow N/C High Flow N/C O2 Flow Rate 4.00 4.00 4.00 4.00 09/06/18 09:04 Pulse Ox 93 O2 Delivery Nasal Cannula O2 Flow Rate 4.00 09/06/18 00:00 Intake Total 1110 ml Output Total 720 ml Balance 390 ml Weight (Pounds): 198 Weight (Ounces): 8.0 Weight (Calculated Kilograms): 90.704190 Constitutional: AAO x 3, well-developed, well-nourished Respiratory: No accessory muscle use; other (fair to good air entry; bibasilar coarse crackles; rhonchi over large airways) Cardiovascular: regular rate-rhythm, S1 and S2, systolic murmur (soft GRETA at card base) Gastrointestional: No tender; distended; No guarding, No rebound; audible bowel sounds Extremities: swelling (bilat mod LE swelling); No clubbing, No cyanosis Neurologic/Psychiatric: oriented x 3, grossly intact, power is 5/5 both on sides Skin: No rash; ulcerations (up to 2 cm lesions on forehead with superficial excoriation and mild redness) Results/Procedures: Labs Laboratory Tests 09/05/18 11:43: Glucometer 202H 09/05/18 17:25: Glucometer 228H 09/05/18 23:25: Glucometer 223H 09/06/18 04:09: White Blood Count 15.3H, Red Blood Count 3.86L, Hemoglobin 12.1L, Hematocrit 36L , Mean Corpuscular Volume 93, Mean Corpuscular Hemoglobin 31, Mean Corpuscular Hemoglobin Concent 34, Red Cell Distribution Width 14.4, Platelet Count 215, Mean Platelet Volume 9.9, Neutrophils (%) (Auto) 90H, Lymphocytes (%) (Auto) 6L, Monocytes (%) (Auto) 4, Eosinophils (%) (Auto) 0, Basophils (%) (Auto) 0, Neutrophils # (Auto) 13.7H, Lymphocytes # (Auto) 0.9L, Monocytes # (Auto) 0.6, Eosinophils # (Auto) 0.0, Basophils # (Auto) 0.0, Sodium Level 138, Potassium Level 3.9, Chloride Level 105, Carbon Dioxide Level 23, Anion Gap 10, Blood Urea Nitrogen 20H, Creatinine 0.80, Estimat Glomerular Filtration Rate > 60, BUN/Creatinine Ratio 25, Glucose Level 176H, Calcium Level 8.5, Phosphorus Level 2.7, Magnesium Level 2.1 09/06/18 05:17: Glucometer 164H Microbiology 08/31/18 Blood Culture - Preliminary, Resulted No growth 09/04/18 Mycobacterial Culture - Preliminary, Resulted A/P: Assessment: Bilateral pneumonia - management per Pulmonary/Medical services Pulmonary hemorrhage with hemoptysis - s/p bronch. Not suitable for OAC or antiplatelet therapy at this time Chronic diastolic CHF Echo of September 02, 2018: LVEF 60-65%; LA mod dilated; mild to mod MR; AoV thickening, consistent with sclerosis; mild to mod TR; PASP 40 mmHg HTN - uncontrolled 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 Cardiac cath from December 30, 2013 in which successful GAURI x 2, one to the proximal and one to the mid vessel LAD, was done. 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 Pacemaker currently in the VVIR mode, due to permanent atrial fib. The patient had a pulse generator change out on 12/18/2011. The device is functioning normally per last interrogation of 06/26/18, but appears to be approaching DIMITRIOS (10 month: 1 month to 19 months). Device interrogation of 09-02-18 shows device to be functioning normally with approx 12 months left on the battery. History of ulcerative colitis, being managed by Dr. Parsons and Dr. Seymour Stroke prophylaxis with Eliquis - currently being held Sleep apnea for which he is following with Dr Mijares - Bi-pap therapy Hyperlipidemia being treated with rosuvastatin. Mild carotid arterial disease that has been followed by Dr. Mcdaniel History of cholecystectomy. Impaired fasting glucose Elevated BMI of approx 30 S/p melanoma removal from the back in 2018, followed by Dr Parsons Plan: * Pulmonary hemorrhage; s/p bronch on 09-04-18.. Therefore continue to hold Eliquis and ASA for now. * BP not well controlled - increase BB back to home dose of 100mg BID and restart Losartan 25 mg daily - adjust as indicated * Bilat LE swelling - treat with Lasix * DC IVF * Monitor labs * Treatment pneumonia is with the [facility] Physician Assessment Physician Assessment Does not report cp or palp or syncope Gen weakness and malaise Shortness of breath improving More leg swelling Lungs: decreased bs at bases Cor: reg Ext: mod pitting edema A&R * As documented in our note above that I updated (italics) and as noted below * D/c iv fluids * Resume Lasix * Resume beta-sita and losartan * D/c dig (already done) * Monitor labs * I had a long and detailed discussion with him and his regarding his CV issues * Dr Mcclain covering the [facility] Clinical Quality Measures AMI/AHF: ASA po Prior to arrival: VIET Leal MANAGER METROLOGY Sep 06, 2018 08:51 TOSHA JUNIOR MD [facility]S Sep 06, 2018 09:58
[2018-09-06] MEDS: DILTIAZEM 300 MG (CARDIZEM CD) CAP PO SCH (09:09)
[2018-09-06] MEDS: meTOprolol TARTRATE 50 MG (LOPRESSOR) TAB PO SCH ×2 (09:09→21:11)
[2018-09-06] MEDS: PANTOPRAZOLE 40 MG (PROTONIX) VIAL IV SCH (09:09)
[2018-09-06] MEDS: LOPERAMIDE 2 MG (IMODIUM) CAP PO SCH ×2 (09:10→21:12)
[2018-09-06] MEDS: LOSARTAN 25 MG (COZAAR) TAB PO SCH (09:10)
[2018-09-06] MEDS: LORATADINE (CLARITIN) 10 MG TAB PO SCH (09:10)
[2018-09-06] MEDS ORDERED: FUROSEMIDE 40 MG/4 ML INJ (LASIX) IVP NR (09:15)
--- NOTE | 2018-09-06 09:25 | Physical Therapy Daily Note ---
PT Daily Note-Current Subjective Patient agrees to PT. He reports increase swelling bilateral LE and weakness. Pain Numeric Pain Scale: 0-No Pain Location: No Pain Reported Mental Status Patient Orientation: Normal For Age Attachments: Oxygen, IV Transfers Therapy Code Descriptions/Definitions Functional [place] Measure: 0=Not Assessed/NA 4=Minimal Assistance 1=Total Assistance 5=Supervision or Setup 2=Maximal Assistance 6=Modified [place] 3=Moderate Assistance 7=Complete [place] Therapy Quality Codes: 6 Independent with activity with or without an assistive device 5 Patient requires set up or clean up by helper. Patient completes activity by themselves 4 Supervision or touching assist (CGA). [place] provide cues , steadying assist 3 The helper provides less than half the effort to complete the activity 2 The helper provides more than half the effort to complete the activity 1 Dependent. The helper does all the effort to complete an activity 7 Patient refused to complete or attempt activity 9 The patient did not perform the activity before the current illness or injury 88 Not attempted due to Medical conditions or safety concerns Transfers (B, C, W/C) (FIM): 4 Scootin Sit to/from Stand: 4 patient performed sit to stand transfers to FWW x 10 sets with marching exercises Exercises Seated Therapy Exercises: Ankle pumps, Long arc quads, Hip flexion Seated Reps: 25 (3 sets) Standing: Marching Standing Reps: 20 (10 sets) Assessment Patient did not feel safe to ambulate at this time due to weakness. Exercises performed edge of chair. PT to increase activity as tolerated by patient. PT Emergency Department Clinician Goals Longterm Goals PT Longterm Goals Time Frame: Sep 11, 2018 Transfers (B,C,W/C) (FIM): 7 Gait (FIM): 6 PT Plan Treatment/Plan Treatment Plan: Continue Plan of Care Treatment Plan: Bed Mobility, Education, Functional Activity [place], Functional Strength, Gait, Therapeutic Exercise, Transfers Treatment Duration: Sep 11, 2018 Frequency: 6 times per week Estimated Hrs Per Day: .5 hour per day Patient and/or Family Agrees t: Yes Time/GCodes Time In: 821 Time Out: 844 Total Billed Treatment Time: 23 Total Billed Treatment 1 visit EX x 2 23 min CHIDI HUANG PT Sep 06, 2018 09:25
--- NOTE | 2018-09-06 09:41 | Progress Note ---
Subjective Date Seen by a Provider: Sep 06, 2018 Time Seen by a Provider: 09:40 Subjective/Events-last exam PT REPORTS THAT HE IS FEELING BETTER EXCEPT FOR THE SWELLING OF HIS HANDS AND LEGS - HE NOTES THAT HIS RINGS WERE QUITE TIGHT EARLIER. HE REPORTS THAT HE ALSO HAD ISSUES WITH STARTING HIS STREAM THIS MORNING. HE CONTINUES TO HAVE COUGH/CONGESTION. Review of Systems General: Fatigue HEENT: No Head Aches Pulmonary: Dyspnea, Cough Cardiovascular: No: Chest Pain, Palpitations Gastrointestinal: No: Nausea, Abdominal Pain Genitourinary: No Dysuria; Other (HESITANCY) Neurological: Weakness, Confusion (IMPROVED) Focused Exam Lactate Level 09/04/18 03:35: Lactic Acid Level 3.49*H 09/04/18 06:46: Lactic Acid Level 2.64*H Objective Exam Last Set of Vital Signs Vital Signs Date Time Temp Pulse Resp B/P (MAP) Pulse Ox O2 Delivery O2 Flow Rate FiO2 09/06/18 09:04 93 Nasal Cannula 4.00 09/06/18 08:00 96.3 62 18 160/81 (107) 09/03/18 14:36 32 Capillary Refill : Less Than 3 Seconds I&O Intake and Output 09/06/18 00:00 Intake Total 2820 ml Output Total 1420 ml Balance 1400 ml Intake Oral 1790 ml IV Total 1030 ml Output Urine Total 1420 ml # Voids 5 General: Alert, Oriented X3, Cooperative, No Acute Distress HEENT: Atraumatic, PERRLA Neck: Supple, No JVD Lungs: Other (CRACKLES IN BASES WITH RHONCHI) Heart: Regular Rate, Normal S1, Normal S2 Abdomen: Normal Bowel Sounds, Soft Extremities: No Clubbing, No Cyanosis, Other ([place] BILATERAL LOWER EXTREMITIES TO KNEES 2-3+) Neuro: Strength at 5/5 X4 Ext, Cranial Nerves 3-12 NL Psych/Mental Status: Mental Status NL, Mood NL Results Lab Laboratory Tests 09/05/18 11:43: Glucometer 202H 09/05/18 17:25: Glucometer 228H 09/05/18 23:25: Glucometer 223H 09/06/18 04:09: White Blood Count 15.3H, Red Blood Count 3.86L, Hemoglobin 12.1L, Hematocrit 36L , Mean Corpuscular Volume 93, Mean Corpuscular Hemoglobin 31, Mean Corpuscular Hemoglobin Concent 34, Red Cell Distribution Width 14.4, Platelet Count 215, Mean Platelet Volume 9.9, Neutrophils (%) (Auto) 90H, Lymphocytes (%) (Auto) 6L, Monocytes (%) (Auto) 4, Eosinophils (%) (Auto) 0, Basophils (%) (Auto) 0, Neutrophils # (Auto) 13.7H, Lymphocytes # (Auto) 0.9L, Monocytes # (Auto) 0.6, Eosinophils # (Auto) 0.0, Basophils # (Auto) 0.0, Sodium Level 138, Potassium Level 3.9, Chloride Level 105, Carbon Dioxide Level 23, Anion Gap 10, Blood Urea Nitrogen 20H, Creatinine 0.80, Estimat Glomerular Filtration Rate > 60, BUN/Creatinine Ratio 25, Glucose Level 176H, Calcium Level 8.5, Phosphorus Level 2.7, Magnesium Level 2.1 09/06/18 05:17: Glucometer 164H Microbiology 08/31/18 Blood Culture - Preliminary, Resulted No growth 09/04/18 Mycobacterial Culture - Preliminary, Resulted Assessment/Plan Assessment/Plan Assess & Plan/Chief Complaint PNEUMONIA RESPIRATORY FAILURE HYPERTENSION CORONARY ARTERY DISEASE ACUTE RENAL FAILURE MILD CONGESTIVE HEART FAILURE ANEMIA COPD SLEEP APNEA HYPONATREMIA AND HYPOKALEMIA ULCERATIVE COLITIS INSOMNIA URINARY HESITANCY PNEUMONIA - ON CEFEPIME AND VANCOMYCIN - CONTINUE WITH CURRENT REGIMEN - SERIAL CHEST XRAYS - NOW ON NASAL CANULA - DEFER TO DR. HESS, PT IS POST BRONCHOSCOPY - PATHOLOGY REPORT DOES NOT SHOW CANCER CELLS AT THIS TIME.. PT MOVED DOWN TO 4TH FLOOR. WEAKNESS - FROM PROLONGED HOSPITALIZATION - PT RECEIVING THERAPY - DEPENDING ON HOW HE DOES, WE WILL SEE IF HE QUALIFIES TO BE ADMITTED TO INPT REHAB THIS WEEKEND. - CONTINUE WITH PHYSICAL AND OCCUPATIONAL THERAPY. RESPIRATORY FAILURE- ON IMPROVED - NOW ON NASAL CANULA HYPERTENSION - RESUMED HOME REGIMEN CORONARY ARTERY DISEASE - PACEMAKER - MILD CONGESTIVE HEART FAILURE- DISCUSSED WITH PT - DEFER TO CARDIOLOGY - SEE ECHO REPORT. ACUTE RENAL FAILURE - MONITOR RENAL FUNCTION - ESPECIALLY WITH THE LARGE DOSE OF LASIX ORDERED BY CARDIOLOGY. ANEMIA -STOP ELIQUIS AND ASPIRIN FOR NOW - WILL HOLD FOR ABOUT 5-6 DAYS AND RESTART PRIOR TO DISCHARGE TO HOME. COPD - CHRONIC - DEFER TO DR. HESS SLEEP APNEA - ON BIPAP AT HS. HYPONATREMIA AND HYPOKALEMIA - REPLACE NEEDED ULCERATIVE COLITIS - LIALDA TO BE RESTARTED TODAY. INSOMNIA - SHOULD IMPROVE WITH PATIENT ON 4TH FLOOR, IV ANXIOLYTIC AND MELATONIN. URINARY HESITANCY - START ON FLOMAX TODAY. DISCUSSED WITH DR. ESTEBAN WHO IS [facility] THIS WEEKEND - PLAN WILL BE FOR DISCHARGE DOWN TO INPT REHAB IF HE QUALIFIES AND HIS INSURANCE WILL ALLOW THIS ADMISSION. Clinical Quality Measures AMI/AHF: ASA po Prior to arrival: No DVT/VTE Risk/Contraindication: Risk Factor Score Per Nursin RFS Level Per Nursing on Admit: 4+=Very High CODYE BARILLAS MD Sep 06, 2018 09:41
[2018-09-06] MEDS ORDERED: PATIENT MAY USE OWN MED,SINGLE MED PO SCH (09:45)
[2018-09-06] MEDS: RT-ALBUTEROL/IPRATROPIUM 3 ML (DUONEB) VIAL INH SCH ×4 (11:14→21:40)
--- NOTE | 2018-09-06 12:10 | Occupational Therapy Eval ---
OT Evaluation-General/PLF Medical Diagnosis Admission Date Aug 31, 2018 at 17:14 Medical Diagnosis: SRAVANTHI pneumonia Onset Date: Aug 31, 2018 Therapy Diagnosis Therapy Diagnosis: decr self care, weakness, decr funct mobility, decr activity tolerance Height/Weight Height (Feet): 5 Height (Inches): 8.00 Weight (Pounds): 198 Weight (Ounces): 8.0 Precautions Precautions/Isolations: Fall Prevention, Standard Precautions Safety Interventions: Bed Exit Alarm, Reorient-PRN Referral Physician: Jaqueline Referral Reason: Evaluation/Treatment Referral Comments Admitted with SOA and chest pain. Has bilat pneumonia, hypoxia Medical History Pertinent Medical History: CABG, CAD, COPD, Heart Failure, HTN, [place] Additional Medical History BiPAP at night. Pacemaker, cardiac stents. Skin cancer, melanoma. Ulcerative colitis, chronic diarrhea, polyps. Asthma Current History Admitted with SOA, chest pain. Has bilat pneumonia, hypoxia Reviewed History: Yes Social History Home: Single Level Current Living Status: Spouse Entry Into Home: Stairs With Railing ADL-Prior Level of Function Therapy Code Descriptions/Definitions Functional [place] Measure: 0=Not Assessed/NA 4=Minimal Assistance 1=Total Assistance 5=Supervision or Setup 2=Maximal Assistance 6=Modified [place] 3=Moderate Assistance 7=Complete [place] Therapy Quality Codes: 6 Independent with activity with or without an assistive device 5 Patient requires set up or clean up by helper. Patient completes activity by themselves 4 Supervision or touching assist (CGA). [place] provide cues , steadying assist 3 The helper provides less than half the effort to complete the activity 2 The helper provides more than half the effort to complete the activity 1 Dependent. The helper does all the effort to complete an activity 7 Patient refused to complete or attempt activity 9 The patient did not perform the activity before the current illness or injury 88 Not attempted due to Medical conditions or safety concerns Functional Abilities and Goals: Independent: Patient completed the activities by him/herself, with or without an assistive device, with no assistance from a helper. Needed Some Help: Patient needed partial assistance from another person to complete activities. Dependent: A helper completed the activities for the patient. Unknown: Not Applicable: ADL PLOF Comments Pt reported that he was previously able to manage all of his basic self care tasks. He also completed home chores and mowed the yard, fished and hunted. 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 No help with medications or finances. Self Care: Independent Functional Cognition: Independent DME/Equipment Comments Unknown DME OT Current Status Subjective Pt seen in room, up ini recliner, agreeable to OT. No pain mentioned. Appearance Alert, cooperative Mental Status/Objective Attachments: Saline Lock, Telemetry Current Glasses/Contacts: Yes Hearing Aids: No Dentures/Partials: Yes (full) Hand Dominance: Right Upper Extremity ROM Grossly WFL bilat Upper Extremity Sensation No problems, per pt report Upper Extremity Strength Grossly 4/5 bilat. Will need additional UE strength for use of FWW to compensate for LE weakness ADL-Treatment ADL-Current Pt reported that he has had significant UE edema but it is better (but not resolved) now due to medication. He has been able to feed himself and wash face/hands, clean mouth with setup, all done seated. Normally he stands at the sink to clean his dentures but is not able to do that at this time. He stood with min assist and required two attempts, with FWW. Pt educ to reach back to use his arms to help with sitting back down so that he doesn't drop into chair due to leg weakness. He was too weak to do any walking with PT this morning. He did walk a few steps into the bathroom with the aide this morning for bathing and toileting. He needed steadying assist to step into shower and used shower bench, grab bars, hand held shower. He needed steadying to stand and required help to wash his bottom. He was unable to reach his feet. He also needed help to get on toilet, using grab bar, help with managing clothing and help to wipe. He did not anticipate problems putting on a shirt but was unable to get slipper socks off or on and unable to get pants over feet. Therapy Code Descriptions/Definitions Functional [place] Measure: 0=Not Assessed/NA 4=Minimal Assistance 1=Total Assistance 5=Supervision or Setup 2=Maximal Assistance 6=Modified [place] 3=Moderate Assistance 7=Complete [place] Therapy Quality Codes: 6 Independent with activity with or without an assistive device 5 Patient requires set up or clean up by helper. Patient completes activity by themselves 4 Supervision or touching assist (CGA). [place] provide cues , steadying assist 3 The helper provides less than half the effort to complete the activity 2 The helper provides more than half the effort to complete the activity 1 Dependent. The helper does all the effort to complete an activity 7 Patient refused to complete or attempt activity 9 The patient did not perform the activity before the current illness or injury 88 Not attempted due to Medical conditions or safety concerns Eating (FIM): 5 Grooming (FIM): 5 (Seated, not at the sink, setup) Bathing (FIM): 3 (Shower bench, grab bars, hand held shower) Bathing Location: L Arm, R Arm, L Upper Leg, R Upper Leg, Chest, Abdomen, Buttocks Upper Body Dressing (FIM): 5 (setup) Lower Body Dressing (FIM): 2 (Help with socks, TEDs, getting pants on over feet, help to stand) Toileting (FIM): 1 (Help with clothing management and hygiene. Tall toilet, grab bar) Toilet/Commode Transfer (FIM): 4 (Tall toilet, grab bar) Shower Transfer (FIM): 4 (Shower bench, grab bar) Education OT Patient Education: Modified ADL techniques, Purpose of tx/functional activ ities, Rehab process, Safety issues, Transfer techniques Teaching Recipient: Patient, Family Teaching Methods: Demonstration, Discussion Response to Teaching: Verbalize Understanding, Return Demonstration, Reinforcement Needed OT Short Term Goals Short Term Goals 1 OT Jail Goals Jail Goals Time Frame: Sep 20, 2018 Eating (FIM): 6 Grooming(FIM): 7 Bathing(FIM): 6 Upper Body Dressing(FIM): 7 Lower Body Dressing(FIM): 6 Toileting(FIM): 6 Toilet/Commode Transfer(FIM): 6 Shower Transfer(FIM): 6 Additional Goals: 1-Demonstrate ADL Tasks, 2-Verbalize Understanding, 3- ImproveStrength/Gilbert 1=Demonstrate adherence to instructed precautions during ADL tasks. 2=Patient will verbalize/demonstrate understanding of assistive devices/modifications for ADL. 3=Patient will improve strength/tolerance for activity to enable patient to perform ADL's. OT Education/Plan Problem List/Assessment Assessment: Decreased Activ Tolerance, Decreased UE Strength, Dependent Transfers, Impaired Self-Care Skills Pt would benefit from skilled OT to increase his independence in basic self care after hospitalization, including time in intensive care, to allow him to safely return home and decrease risk of falling Discharge Recommendations Plan/Recommendations: Continue POC Therapy D/C Recommendations: Acute Rehab Treatment Plan/Plan of Care Treatment,Training & Education: Yes Patient would benefit from OT for education, treatment and training to promote independence in ADL's, mobility, safety and/or upper extremity function for ADL's. Plan of Care: ADL Retraining, Functional Mobility, UE Funct Exercise/Act, UE Neuromus Re-Ed/Coord Treatment Duration: Sep 20, 2018 Frequency: 5 times per week Estimated Hrs Per Day: .5 hour per day Agreement: Yes Rehab Potential: Good Time/GCodes Start Time: 11:35 Stop Time: 12:00 Total Time Billed (hr/min): 25 Billed Treatment Time visit, 15 minutes evaluation moderate intensity, 10 minutes EASTON Fox OT Sep 06, 2018 12:10
--- NOTE | 2018-09-06 14:51 | NUR ---
IRF Evaluation Order received to evaluate patient for the ARU. Chart reviewed and discussed with Dr. Saravia - patient accepted. According to Dr. Parsons, she anticipates patient may be ready for admission, 09/07/18. Patient's primary insurance provider is [facility]; therefore, a prior authorization will need to be completed for determination. 1239 - Prior auth initiated 1440 - Met with patient to discuss details of rehabilitation program. Patient agreeable to therapy regimen and admission. Patient was informed this worker would update him in reference to insurance determination, as information becomes available. 4337 - Clinical information submitted to insurance Thank you for this referral. Addendum: 09/09/18 at 1050 by JULY Akin CAI [id number] Dr. Parsons, nurse, CORAL and patient's spouse, notified that insurance continues to review request for admission to ARU. Will update those involved, once a determination is provided. Addendum: 09/10/18 at 0845 by JULY Akin CAI 09/09/18, 2472 Dr. Parsons notified of denial for admission from insurance. CM/SS notified shortly thereafter.
[2018-09-06 15:45] VITALS: BP 146/71
[2018-09-06] MEDS: TAMSULOSIN 0.4 MG (FLOMAX) CAP PO SCH (18:13)
[2018-09-06 19:40] VITALS: BP 171/81
[2018-09-06] MEDS: MESALAMINE 1.2 GM PO SCH (21:10)
[2018-09-06] MEDS: MELATONIN 3 MG TABLET PO SCH (21:11)
[2018-09-06 23:56] VITALS: BP 171/79
[2018-09-07] MEDS: RT-ALBUTEROL/IPRATROPIUM 3 ML (DUONEB) VIAL INH SCH ×4 (03:05→23:15)
[2018-09-07] MEDS: CEFEPIME 1,000 MG/SWFI 10 ML IV PUSH IV SCH ×6 (03:54→17:12)
[2018-09-07 04:34] LABS: BASOPHILS % (AUTO) 0 % (0-10); EOSINOPHILS % (AUTO) 0 % (0-10); HEMATOCRIT 36 % (40-54); LYMPHOCYTES # (AUTO) 0.9 X 10^3 (1.0-4.0); LYMPHOCYTES % (AUTO) 6 % (12-44); MEAN CORPUSCULAR HEMOGLOBIN 31 PG (25-34); MEAN CORPUSCULAR HGB CONC 34 G/DL (32-36); MEAN CORPUSCULAR VOLUME 92 FL (80-99); MEAN PLATELET VOLUME 9.5 FL (7.4-10.4); MONOCYTES # (AUTO) 0.7 X 10^3 (0.0-1.0); MONOCYTES % (AUTO) 5 % (0-12); NEUTROPHILS # (AUTO) 12.8 X 10^3 (1.8-7.8); NEUTROPHILS % (AUTO) 89 % (42-75); PLATELET COUNT 236 10^3/uL (130-400); RED CELL DISTRIBUTION WIDTH 14.2 % (10.0-14.5); WHITE BLOOD COUNT 14.4 10^3/uL (4.3-11.0)
[2018-09-07 04:50] LABS: BUN/CREATININE RATIO 29; CALCIUM 8.3 MG/DL (8.5-10.1); CARBON DIOXIDE 26 MMOL/L (21-32); CHLORIDE 102 MMOL/L (98-107); CREATININE SERUM 0.84 MG/DL (0.60-1.30); GFR ESTIMATED > 60; GLUCOSE 172 MG/DL (70-105); MAGNESIUM 2.1 MG/DL (1.8-2.4); PHOSPHORUS 2.7 MG/DL (2.3-4.7); POTASSIUM 3.5 MMOL/L (3.6-5.0); SODIUM 137 MMOL/L (135-145)
[2018-09-07 05:16] LABS: LYMPHOCYTES % (MANUAL) 4 %; MONOCYTES % (MANUAL) 6 %; NEUTROPHILS % (MANUAL) 89 %
[2018-09-07 05:18] LABS: ATYPICAL LYMPHOCYTES 1 %
[2018-09-07] MEDS: LACTOBACILLUS ACIDOPHILUS (PROBIOTIC) CAPSULE PO SCH ×2 (05:52→17:11)
[2018-09-07] MEDS: inSUlin ASPART (NovoLOG) 1 UNIT/0.01 ML (CHARGE PER UNIT) SQ SCH ×4 (05:52→23:42)
[2018-09-07] MEDS: methylPREDNISolone 40 MG/ML (Solu-MEDROL) VIAL IV SCH ×4 (05:52→23:42)
[2018-09-07 08:00] VITALS: BP 137/71
--- NOTE | 2018-09-07 08:13 | Physical Therapy Daily Note ---
PT Daily Note-Current Subjective Patient much improved on this date and is highly motivated to participate with PT. Pain Numeric Pain Scale: 0-No Pain Location: No Pain Reported Mental Status Patient Orientation: Normal For Age Attachments: Oxygen, IV Transfers Therapy Code Descriptions/Definitions Functional [place] Measure: 0=Not Assessed/NA 4=Minimal Assistance 1=Total Assistance 5=Supervision or Setup 2=Maximal Assistance 6=Modified [place] 3=Moderate Assistance 7=Complete [place] Therapy Quality Codes: 6 Independent with activity with or without an assistive device 5 Patient requires set up or clean up by helper. Patient completes activity by themselves 4 Supervision or touching assist (CGA). [place] provide cues , steadying assist 3 The helper provides less than half the effort to complete the activity 2 The helper provides more than half the effort to complete the activity 1 Dependent. The helper does all the effort to complete an activity 7 Patient refused to complete or attempt activity 9 The patient did not perform the activity before the current illness or injury 88 Not attempted due to Medical conditions or safety concerns Transfers (B, C, W/C) (FIM): 4 Scootin Sit to/from Stand: 4 CGA for safety Gait Training Gait (FIM): 2 Distance (FIM): 2=564-61 ft Distance: 125' Gait Level of Assist: 4 Gait Persons Needed: 1 Gait Assistive Device: FWW 2 episodes of knee buckling due to weakness Exercises Seated Therapy Exercises: Ankle pumps, Long arc quads, Hip flexion Seated Reps: 15 Standing: Marching Standing Reps: 15 (2 sets) Assessment Patient tolerated treatment well and remains up in recliner with needs met. PT to continue to increase activity as tolerated by patient. PT Chain Maker Hand Goals Chain Maker Hand Goals PT [facility] Goals Time Frame: Sep 11, 2018 Transfers (B,C,W/C) (FIM): 7 Gait (FIM): 6 PT Plan Treatment/Plan Treatment Plan: Continue Plan of Care Treatment Plan: Bed Mobility, Education, Functional Activity [place], Functional Strength, Gait, Therapeutic Exercise, Transfers Treatment Duration: Sep 11, 2018 Frequency: 6 times per week Estimated Hrs Per Day: .5 hour per day Patient and/or Family Agrees t: Yes Time/GCodes Time In: 738 Time Out: 802 Total Billed Treatment Time: 24 Total Billed Treatment 1 visit EX 14 min GT 10 min CHIDI HUANG PT Sep 07, 2018 08:12
[2018-09-07] MEDS: DILTIAZEM 300 MG (CARDIZEM CD) CAP PO SCH (08:42)
[2018-09-07] MEDS: LORATADINE (CLARITIN) 10 MG TAB PO SCH (08:42)
[2018-09-07] MEDS: meTOprolol TARTRATE 50 MG (LOPRESSOR) TAB PO SCH ×2 (08:42→21:43)
[2018-09-07] MEDS: LOSARTAN 25 MG (COZAAR) TAB PO SCH (08:42)
[2018-09-07] MEDS: LOPERAMIDE 2 MG (IMODIUM) CAP PO SCH ×2 (08:42→21:30)
[2018-09-07] MEDS: PANTOPRAZOLE 40 MG (PROTONIX) TAB PO SCH (08:42)
--- NOTE | 2018-09-07 10:27 | Cardiology Progress Note ---
Subjective Date Seen by Provider: Sep 07, 2018 Time Seen by Provider: 10:25 Subjective/Events-last exam patient is in a chair, reporting improvement, breathing is better, edema is improving. Review of Systems General: No Chills, No Night Sweats; Fatigue; No Malaise, No Appetite, No Other HEENT: No Head Aches, No Visual Changes, No Eye Pain, No Ear Pain, No Dysphasia, No Sinus Congestion, No Post Nasal Drip, No Sore Throat, No Other Pulmonary: Dyspnea; No Cough, No Pleuritic Chest Pain, No Other Cardiovascular: Edema; No: Chest Pain, Palpitations, Orthopnea, Paroxysmal Noc. Dyspnea, Lt Headedness, Other Objective-Cardiology Exam Last Set of Vital Signs Vital Signs 09/03/18 09/07/18 14:36 08:00 Temp 97.7 Pulse 64 Resp 20 B/P (MAP) 137/71 (93) Pulse Ox 94 O2 Delivery High Flow N/C O2 Flow Rate 3.00 FiO2 32 Capillary Refill : Less Than 3 Seconds I&O Intake and Output 09/07/18 00:00 Intake Total 3040 ml Output Total 2325 ml Balance 715 ml Intake Oral 2030 ml IV Total 1010 ml Output Urine Total 2325 ml # Voids 3 # Bowel Movements 1 General: Alert, Oriented X3, Cooperative, No Acute Distress HEENT: Atraumatic, PERRLA Neck: Supple Lungs: Other (IMPROVED AIR MOVEMENT THROUGHOUT) Heart: Regular Rate, Normal S1, Normal S2 Abdomen: Normal Bowel Sounds, Soft Extremities: No Clubbing, No Cyanosis, Other ([place] BILATERAL LOWER EXTREMITIES TO KNEES 2-3+) Neuro: Cranial Nerves 3-12 NL Psych/Mental Status: Mental Status NL, Mood NL Results Lab Laboratory Tests 09/07/18 04:21 A/P-Cardiology Admission Diagnosis Pneumonia Congestive heart failure, chronic compensated left ventricular diastolic dysfunction Coronary artery disease Chronic atrial fibrillation Assessment/Plan Bilateral pneumonia, improving, managed by primary care physician Peripheral edema, acute on chronic left ventricular diastolic dysfunction, started on diuretics and improving slowly. Continue to monitor 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 Cardiac cath from December 30, 2013 in which successful GAURI x 2, one to the proximal and one to the mid vessel LAD, was done. 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 Pacemaker currently in the VVIR mode, due to permanent atrial fib. The patient had a pulse generator change out on 12/18/2011. The device is functioning normally per last interrogation of 06/26/18, but appears to be approaching DIMITRIOS (10 month: 1 month to 19 months) History of ulcerative colitis, being managed by Dr. Parsons and Dr. Seymour Stroke prophylaxis with Eliquis, currently on hold in preparation for bronchoscopy Sleep apnea for which he is following with Dr Mijares - Bi-pap therapy Hyperlipidemia being treated with rosuvastatin. Mild carotid arterial disease that has been followed by Dr. Mcdaniel History of cholecystectomy. Impaired fasting glucose Elevated BMI of approx 30 S/p melanoma removal from the back in 2018, followed by Dr Parsons Clinical Quality Measures AMI/AHF: ASA po Prior to arrival: No DVT/VTE Risk/Contraindication: Risk Factor Score Per Nursin RFS Level Per Nursing on Admit: 4+=Very High DAVID HOYOS MD Sep 07, 2018 10:27
[2018-09-07] MEDS ORDERED: FUROSEMIDE 40 MG/4 ML INJ (LASIX) IVP ONE (11:30)
--- NOTE | 2018-09-07 11:48 | Progress Note-Hospitalist ---
Subjective HPI/CC On Admission Date Seen by Provider: Sep 07, 2018 Time Seen by Provider: 11:00 CC: Dyspnea with bilateral pneumonia HPI: This is a 78yoWM clinic patient of Dr Parsons and Dr Avila who has a h/o asthma and CHF and pneumonia who presented to the ER with cough, fever and dyspnea and was found to have bilateral pneumonia. CT angiogram was obtained due to elevated d-dimer which revealed no PE just confirmed the infiltrates. Patient was doing well on abx on the med-surg floor but began having increased crackles and dyspnea prompting the addition of biPAP but worsened further so he was moved to ICU and Dr Mijares and Dr Avila were consulted. Patient is doing well on Vapotherm off biPAP right now and he also wears biPAP at home at night for BRIDGER. Reviewed home meds and restarted most but Cardiology will review their speciality meds. Discussion of short term vent ensued and currently patient is feeling much better. Subjective/Events-last exam Patient doing very well today IV Lasix will be given today another 40 mg IV dose Edema is much improved since Lasix was given yesterday Reviewed labs and meds at bedside Overall much improved Trying to walk a little more and go to the bathroom and started to the bedside commode Review of Systems General: Fatigue Pulmonary: Dyspnea Objective Exam Vital Signs Vital Signs Date Time Temp Pulse Resp B/P (MAP) Pulse Ox O2 Delivery O2 Flow Rate FiO2 09/07/18 08:00 High Flow N/C 3.00 09/07/18 08:00 97.7 64 20 137/71 (93) 94 09/03/18 14:36 32 Capillary Refill : Less Than 3 Seconds General Appearance: WD/WN, Anxious, Chronically ill, Mild Distress HEENT: PERRL/EOMI, Normal ENT Inspection, Pharynx Normal, Moist Mucous Membranes Neck: Full Range of Motion, Normal Inspection, Non Tender Respiratory: Chest Non Tender, Lungs Clear, Normal Breath Sounds, No Accessory Muscle Use, No Respiratory Distress, Accessory Muscle Use Cardiovascular: Regular Rate, Rhythm, No Gallop, No JVD, No Murmur, Normal Peripheral Pulses Gastrointestinal: Normal Bowel Sounds, No Organomegaly, No Pulsatile Mass, Non Tender, Soft Back: Normal Inspection, No CVA Tenderness, No Vertebral Tenderness Extremity: Normal Capillary Refill, Normal Inspection, Normal Range of Motion, Non Tender, No Calf Tenderness, Pedal Edema Neurologic/Psychiatric: Alert, Oriented x3, No Motor/Sensory Deficits, Normal Mood/Affect Skin: Normal Color, Warm/Dry Lymphatic: No Adenopathy Results/Procedures Lab Laboratory Tests 09/07/18 04:21 Patient resulted labs reviewed. Assessment/Plan Assessment and Plan Assess & Plan/Chief Complaint Assess & Plan/Chief Complaint per PCP: PNEUMONIA RESPIRATORY FAILURE HYPERTENSION CORONARY ARTERY DISEASE ACUTE RENAL FAILURE MILD CONGESTIVE HEART FAILURE ANEMIA COPD SLEEP APNEA HYPONATREMIA AND HYPOKALEMIA ULCERATIVE COLITIS INSOMNIA URINARY HESITANCY Edema Plan: IV Lasix Monitor labs Inpatient rehabilitation upon approval from insurance Bowels per his normal routine Diagnosis/Problems Diagnosis/Problems (1) Respiratory distress Status: Acute (2) Bilateral pneumonia Status: Acute Qualifiers: Pneumonia type: due to unspecified organism Lung location: upper lobe of lung Qualified Codes: J18.1 - Lobar pneumonia, unspecified organism (3) Pleural effusion Status: Acute (4) Anemia Status: Chronic Qualifiers: Anemia type: unspecified type Qualified Codes: D64.9 - Anemia, unspecified (5) BRIDGER treated with BiPAP Status: Chronic (6) Asthma Qualifiers: Asthma severity: moderate Asthma persistence: persistent Asthma complication type: with acute exacerbation Qualified Codes: J45.41 - Moderate persistent asthma with (acute) exacerbation (7) Hypoxia Status: Acute (8) COPD (chronic obstructive pulmonary disease) Status: Chronic Qualifiers: COPD type: unspecified COPD Qualified Codes: J44.9 - Chronic obstructive pulmonary disease, unspecified (9) CAD S/P percutaneous coronary angioplasty Onset Date: 12/31/2013 Status: Acute (10) Leukocytosis Status: Acute Qualifiers: Leukocytosis type: leukemoid reaction Qualified Codes: D72.823 - Leukemoid reaction (11) Hypoxemia Status: Acute (12) D-dimer, elevated Status: Acute (13) Hx of CABG Status: Chronic (14) Pacemaker Status: Chronic (15) On continuous oral anticoagulation Status: Chronic (16) Hematuria Status: Acute Qualifiers: Hematuria type: asymptomatic microscopic Qualified Codes: R31.21 - Asymptomatic microscopic hematuria Clinical Quality Measures AMI/AHF: ASA po Prior to arrival: No DVT/VTE Risk/Contraindication: Risk Factor Score Per Nursin RFS Level Per Nursing on Admit: 4+=Very High KOBI ESTEBAN DO Sep 07, 2018 11:47
[2018-09-07 15:15] VITALS: BP 172/84
[2018-09-07] MEDS: TAMSULOSIN 0.4 MG (FLOMAX) CAP PO SCH (17:59)
[2018-09-07] MEDS: MELATONIN 3 MG TABLET PO SCH (21:43)
[2018-09-07] MEDS: MESALAMINE 1.2 GM PO SCH (21:45)
[2018-09-07 23:27] VITALS: BP 162/75
[2018-09-08] MEDS: RT-ALBUTEROL/IPRATROPIUM 3 ML (DUONEB) VIAL INH SCH ×3 (02:34→21:35)
[2018-09-08 03:25] LABS: BASOPHILS % (AUTO) 0 % (0-10); EOSINOPHILS % (AUTO) 0 % (0-10); HEMATOCRIT 37 % (40-54); HEMOGLOBIN 12.8 G/DL (13.3-17.7); LYMPHOCYTES # (AUTO) 0.8 X 10^3 (1.0-4.0); LYMPHOCYTES % (AUTO) 6 % (12-44); MEAN CORPUSCULAR HEMOGLOBIN 31 PG (25-34); MEAN CORPUSCULAR HGB CONC 34 G/DL (32-36); MEAN CORPUSCULAR VOLUME 92 FL (80-99); MEAN PLATELET VOLUME 9.3 FL (7.4-10.4); MONOCYTES # (AUTO) 0.8 X 10^3 (0.0-1.0); MONOCYTES % (AUTO) 6 % (0-12); NEUTROPHILS % (AUTO) 88 % (42-75); PLATELET COUNT 232 10^3/uL (130-400); WHITE BLOOD COUNT 13.6 10^3/uL (4.3-11.0)
[2018-09-08 03:44] LABS: BUN/CREATININE RATIO 27; CALCIUM 8.2 MG/DL (8.5-10.1); CARBON DIOXIDE 27 MMOL/L (21-32); CHLORIDE 100 MMOL/L (98-107); CREATININE SERUM 0.84 MG/DL (0.60-1.30); GFR ESTIMATED > 60; GLUCOSE 143 MG/DL (70-105); MAGNESIUM 2.2 MG/DL (1.8-2.4); PHOSPHORUS 2.8 MG/DL (2.3-4.7); POTASSIUM 3.2 MMOL/L (3.6-5.0); SODIUM 138 MMOL/L (135-145)
[2018-09-08] MEDS: inSUlin ASPART (NovoLOG) 1 UNIT/0.01 ML (CHARGE PER UNIT) SQ SCH ×3 (05:47→18:00)
[2018-09-08] MEDS: methylPREDNISolone 40 MG/ML (Solu-MEDROL) VIAL IV SCH ×4 (06:21→17:46)
[2018-09-08] MEDS: LACTOBACILLUS ACIDOPHILUS (PROBIOTIC) CAPSULE PO SCH ×2 (06:21→17:26)
[2018-09-08 08:00] VITALS: BP 165/89
[2018-09-08] MEDS: PANTOPRAZOLE 40 MG (PROTONIX) TAB PO SCH (08:43)
[2018-09-08] MEDS: DILTIAZEM 300 MG (CARDIZEM CD) CAP PO SCH (08:43)
[2018-09-08] MEDS: LOSARTAN 25 MG (COZAAR) TAB PO SCH (08:43)
[2018-09-08] MEDS: LORATADINE (CLARITIN) 10 MG TAB PO SCH (08:43)
[2018-09-08] MEDS: meTOprolol TARTRATE 50 MG (LOPRESSOR) TAB PO SCH ×2 (08:43→21:34)
[2018-09-08] MEDS: LOPERAMIDE 2 MG (IMODIUM) CAP PO SCH ×2 (08:44→21:30)
--- NOTE | 2018-09-08 10:37 | Progress Note-Hospitalist ---
Subjective HPI/CC On Admission Date Seen by Provider: Sep 08, 2018 Time Seen by Provider: 09:30 CC: Dyspnea with bilateral pneumonia HPI: This is a 78yoWM clinic patient of Dr Parsons and Dr Avila who has a h/o asthma and CHF and pneumonia who presented to the ER with cough, fever and dyspnea and was found to have bilateral pneumonia. CT angiogram was obtained due to elevated d-dimer which revealed no PE just confirmed the infiltrates. Patient was doing well on abx on the med-surg floor but began having increased crackles and dyspnea prompting the addition of biPAP but worsened further so he was moved to ICU and Dr Mijares and Dr Avila were consulted. Patient is doing well on Vapotherm off biPAP right now and he also wears biPAP at home at night for BRIDGER. Reviewed home meds and restarted most but Cardiology will review their speciality meds. Discussion of short term vent ensued and currently patient is feeling much better. Subjective/Events-last exam Patient doing very well Stable from my standpoint for inpatient rehab transfer tomorrow if insurance approves Potassium 3.2 so I ordered 10 mEq twice daily Bowels are moving well even with his history of colitis of which she usually has diarrhea No pain is reported Overall weekend but improving by the day at bedside Lasix 40 mg given IV x1 again today then will transition to his regular 40 mg p.o. dose tomorrow Check meds and labs Will accept patient to inpatient rehab once insurance approves Review of Systems General: Fatigue Pulmonary: Dyspnea Cardiovascular: Edema Objective Exam Vital Signs Vital Signs Date Time Temp Pulse Resp B/P (MAP) Pulse Ox O2 Delivery O2 Flow Rate FiO2 09/08/18 15:34 69 94 32 09/08/18 15:17 97.3 18 147/75 (99) High Flow N/C 3.00 Capillary Refill : Less Than 3 Seconds General Appearance: WD/WN, Anxious, Chronically ill, Mild Distress HEENT: PERRL/EOMI, Normal ENT Inspection, Pharynx Normal, Moist Mucous Membrane s Neck: Full Range of Motion, Normal Inspection, Non Tender Respiratory: Chest Non Tender, Lungs Clear, Normal Breath Sounds, No Accessory Muscle Use, No Respiratory Distress, Accessory Muscle Use Cardiovascular: Regular Rate, Rhythm, No Gallop, No JVD, No Murmur, Normal Peripheral Pulses Gastrointestinal: Normal Bowel Sounds, No Organomegaly, No Pulsatile Mass, Non Tender, Soft Back: Normal Inspection, No CVA Tenderness, No Vertebral Tenderness Extremity: Normal Capillary Refill, Normal Inspection, Normal Range of Motion, Non Tender, No Calf Tenderness, Pedal Edema Neurologic/Psychiatric: Alert, Oriented x3, No Motor/Sensory Deficits, Normal Mood/Affect Skin: Normal Color, Warm/Dry Lymphatic: No Adenopathy Results/Procedures Lab Laboratory Tests 09/08/18 03:20 Patient resulted labs reviewed. Assessment/Plan Assessment and Plan Assess & Plan/Chief Complaint Assess & Plan/Chief Complaint per PCP: PNEUMONIA RESPIRATORY FAILURE HYPERTENSION CORONARY ARTERY DISEASE ACUTE RENAL FAILURE MILD CONGESTIVE HEART FAILURE ANEMIA COPD SLEEP APNEA HYPONATREMIA AND HYPOKALEMIA ULCERATIVE COLITIS INSOMNIA URINARY HESITANCY Edema-improved Plan: IV Lasix 40mg once more dose today Supplement potassium Monitor labs Inpatient rehabilitation upon approval from insurance Bowels per his normal routine Diagnosis/Problems Diagnosis/Problems (1) Respiratory distress Status: Resolved Resolution Date/Time: 09/08/18 @ 17:20 (2) Bilateral pneumonia Status: Acute Qualifiers: Pneumonia type: due to unspecified organism Lung location: upper lobe of lung Qualified Codes: J18.1 - Lobar pneumonia, unspecified organism (3) Pleural effusion Status: Acute (4) Anemia Status: Chronic Qualifiers: Anemia type: unspecified type Qualified Codes: D64.9 - Anemia, unspecified (5) BRIDGER treated with BiPAP Status: Chronic (6) Asthma Qualifiers: Asthma severity: moderate Asthma persistence: persistent Asthma complication type: with acute exacerbation Qualified Codes: J45.41 - Moderate persistent asthma with (acute) exacerbation (7) Hypoxia Status: Acute (8) COPD (chronic obstructive pulmonary disease) Status: Chronic Qualifiers: COPD type: unspecified COPD Qualified Codes: J44.9 - Chronic obstructive pulmonary disease, unspecified (9) CAD S/P percutaneous coronary angioplasty Onset Date: 12/31/2013 Status: Acute (10) Leukocytosis Status: Acute Qualifiers: Leukocytosis type: leukemoid reaction Qualified Codes: D72.823 - Leukemoid reaction (11) Hypoxemia Status: Acute (12) D-dimer, elevated Status: Acute (13) Hx of CABG Status: Chronic (14) Pacemaker Status: Chronic (15) On continuous oral anticoagulation Status: Chronic (16) Hematuria Status: Acute Qualifiers: Hematuria type: asymptomatic microscopic Qualified Codes: R31.21 - Asymptomatic microscopic hematuria Clinical Quality Measures AMI/AHF: ASA po Prior to arrival: No DVT/VTE Risk/Contraindication: Risk Factor Score Per Nursin RFS Level Per Nursing on Admit: 4+=Very High KOBI ESTEBAN DO Sep 08, 2018 10:37
--- NOTE | 2018-09-08 11:24 | Cardiology Progress Note ---
Subjective Date Seen by Provider: Sep 08, 2018 Time Seen by Provider: 11:23 Subjective/Events-last exam patient is sitting in bed, feeling better, breathing better. No chest pain. Review of Systems General: No Chills, No Night Sweats, No Fatigue, No Malaise, No Appetite, No Other HEENT: No Head Aches, No Visual Changes, No Eye Pain, No Ear Pain, No Dysphasia, No Sinus Congestion, No Post Nasal Drip, No Sore Throat, No Other Pulmonary: Dyspnea; No Cough, No Pleuritic Chest Pain, No Other Cardiovascular: No: Chest Pain, Palpitations, Orthopnea, Paroxysmal Noc. Dyspnea, Edema, Lt Headedness, Other Objective-Cardiology Exam Last Set of Vital Signs Vital Signs 09/03/18 09/08/18 14:36 08:00 Temp 97.3 Pulse 62 Resp 20 B/P (MAP) 165/89 (114) Pulse Ox 94 O2 Delivery High Flow N/C O2 Flow Rate 3.00 FiO2 32 Capillary Refill : Less Than 3 Seconds I&O Intake and Output 09/08/18 00:00 Intake Total 1672 ml Output Total 1850 ml Balance -178 ml Intake Oral 1672 ml Output Urine Total 1850 ml # Voids 5 # Bowel Movements 1 General: Alert, Oriented X3, Cooperative, No Acute Distress HEENT: Atraumatic, PERRLA Neck: Supple Lungs: Clear to Auscultation, Normal Air Movement Heart: Regular Rate, Normal S1, Normal S2 Abdomen: Normal Bowel Sounds, Soft Extremities: No Clubbing, No Cyanosis, Other (EDEMA BILATERAL LOWER EXTREMITIES TO KNEES 2-3+) Skin: No Rashes Neuro: Normal Gait, Normal Speech, Cranial Nerves 3-12 NL Psych/Mental Status: Mental Status NL, Mood NL Results Lab Laboratory Tests 09/08/18 03:20 A/P-Cardiology Admission Diagnosis Pneumonia Congestive heart failure, chronic compensated left ventricular diastolic dysfunction Coronary artery disease Chronic atrial fibrillation Assessment/Plan Bilateral pneumonia, improving, managed by primary care physician Peripheral edema, acute on chronic left ventricular diastolic dysfunction, receiving diuretics and responding well. Feeling better. Continue to monitor 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 Cardiac cath from December 30, 2013 in which successful GAURI x 2, one to the proximal and one to the mid vessel LAD, was done. 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 Pacemaker currently in the VVIR mode, due to permanent atrial fib. The patient had a pulse generator change out on 12/18/2011. The device is functioning normally per last interrogation of 06/26/18, but appears to be approaching DIMITRIOS (10 month: 1 month to 19 months) History of ulcerative colitis, being managed by Dr. Parsons and Dr. Seymour Stroke prophylaxis with Eliquis, currently on hold in preparation for bronchoscopy Sleep apnea for which he is following with Dr Mijares - Bi-pap therapy Hyperlipidemia being treated with rosuvastatin. Mild carotid arterial disease that has been followed by Dr. Mcdaniel History of cholecystectomy. Impaired fasting glucose Elevated BMI of approx 30 S/p melanoma removal from the back in 2018, followed by Dr Parsons Clinical Quality Measures AMI/AHF: ASA po Prior to arrival: No DVT/VTE Risk/Contraindication: Risk Factor Score Per Nursin RFS Level Per Nursing on Admit: 4+=Very High DAVID HOYOS MD Sep 08, 2018 11:24
[2018-09-08] MEDS ORDERED: KCL 20 MEQ TAB (K-DUR) PO NR (11:30)
[2018-09-08] MEDS: KCL 10 MEQ TAB (MICRO K) PO SCH ×2 (11:41→21:34)
[2018-09-08] MEDS ORDERED: FUROSEMIDE 40 MG/4 ML INJ (LASIX) IVP NR (13:15)
[2018-09-08 15:17] VITALS: BP 147/75
--- NOTE | 2018-09-08 15:31 | NUR ---
Patient did not get 0900 SVN BT
[2018-09-08 15:34] VITALS: BP 147/75
[2018-09-08] MEDS: TAMSULOSIN 0.4 MG (FLOMAX) CAP PO SCH (17:26)
[2018-09-08] MEDS: MESALAMINE 1.2 GM PO SCH (21:34)
[2018-09-08] MEDS: MELATONIN 3 MG TABLET PO SCH (21:34)
[2018-09-08 23:22] VITALS: BP 164/78
[2018-09-09] MEDS: inSUlin ASPART (NovoLOG) 1 UNIT/0.01 ML (CHARGE PER UNIT) SQ SCH ×4 (00:17→17:11)
[2018-09-09] MEDS: RT-ALBUTEROL/IPRATROPIUM 3 ML (DUONEB) VIAL INH SCH ×4 (03:11→20:53)
[2018-09-09 06:17] LABS: BASOPHILS % (AUTO) 0 % (0-10); EOSINOPHILS % (AUTO) 0 % (0-10); HEMATOCRIT 37 % (40-54); HEMOGLOBIN 12.7 G/DL (13.3-17.7); LYMPHOCYTES # (AUTO) 1.1 X 10^3 (1.0-4.0); LYMPHOCYTES % (AUTO) 7 % (12-44); MEAN CORPUSCULAR HEMOGLOBIN 31 PG (25-34); MEAN CORPUSCULAR HGB CONC 34 G/DL (32-36); MEAN CORPUSCULAR VOLUME 91 FL (80-99); MEAN PLATELET VOLUME 9.5 FL (7.4-10.4); MONOCYTES # (AUTO) 1.1 X 10^3 (0.0-1.0); MONOCYTES % (AUTO) 8 % (0-12); NEUTROPHILS # (AUTO) 12.7 X 10^3 (1.8-7.8); NEUTROPHILS % (AUTO) 85 % (42-75); PLATELET COUNT 237 10^3/uL (130-400); RED CELL DISTRIBUTION WIDTH 14.1 % (10.0-14.5); WHITE BLOOD COUNT 14.9 10^3/uL (4.3-11.0)
[2018-09-09 06:51] LABS: ALANINE AMINOTRANSFERASE 48 U/L (0-55); ALKALINE PHOSPHATASE 56 U/L (40-136); BILIRUBIN,TOTAL 0.8 MG/DL (0.1-1.0); BUN/CREATININE RATIO 35; CALCIUM 8.3 MG/DL (8.5-10.1); CARBON DIOXIDE 30 MMOL/L (21-32); CHLORIDE 99 MMOL/L (98-107); CREATININE SERUM 0.92 MG/DL (0.60-1.30); GFR ESTIMATED > 60; GLUCOSE 163 MG/DL (70-105); POTASSIUM 3.7 MMOL/L (3.6-5.0); SODIUM 141 MMOL/L (135-145); TOTAL PROTEIN 5.4 GM/DL (6.4-8.2)
[2018-09-09] MEDS: predniSONE 20 MG TAB PO SCH (06:57)
[2018-09-09] MEDS: LACTOBACILLUS ACIDOPHILUS (PROBIOTIC) CAPSULE PO SCH ×2 (06:57→17:19)
--- NOTE | 2018-09-09 07:52 | Pulmonary Progress Note ---
Subjective Time Seen by a Provider: 16:02 Subjective/Events-last exam Pt is feeling much better. Productive cough improved. Sepsis Event Evaluation Height, Weight, BMI Height: 5'8.00" Weight: 210lbs. 3.0oz. 95.439997hr; 30.2 BMI Method:Stated Exam Exam Vital Signs Date Time Temp Pulse Resp B/P (MAP) Pulse Ox O2 Delivery O2 Flow Rate FiO2 09/09/18 03:11 96 NIV CPAP 3.00 09/08/18 23:22 98.0 66 20 164/78 (106) 100 High Flow N/C 3.00 09/08/18 21:37 98 Nasal Cannula 3.00 09/08/18 20:00 Nasal Cannula 3.00 09/08/18 15:34 69 94 32 09/08/18 15:17 97.3 65 18 147/75 (99) 95 High Flow N/C 3.00 09/08/18 15:06 94 Nasal Cannula 3.00 09/08/18 08:00 94 High Flow N/C 3.00 09/08/18 08:00 97.3 62 20 165/89 (114) 94 High Flow N/C 3.00 I & O 09/09/18 07:00 Intake Total 2490 ml Output Total 1200 ml Balance 1290 ml Height & Weight Height: 5'8.00" Weight: 210lbs. 3.0oz. 95.023962qn; 30.2 BMI Method:Stated General Appearance: No Apparent Distress, WD/WN, Anxious, Chronically ill HEENT: PERRL/EOMI, Normal ENT Inspection, Pharynx Normal, Moist Mucous Membranes Neck: Full Range of Motion, Normal Inspection, Non Tender Respiratory: Chest Non Tender, Lungs Clear, Normal Breath Sounds, No Accessory Muscle Use, No Respiratory Distress, Accessory Muscle Use Cardiovascular: Regular Rate, Rhythm, No Gallop, No JVD, No Murmur, Normal Peripheral Pulses Capillary Refill: Less Than 3 Seconds Extremity: Normal Capillary Refill, Normal Inspection, Normal Range of Motion, Non Tender, No Calf Tenderness, Pedal Edema Neurologic/Psychiatric: Alert, Oriented x3, No Motor/Sensory Deficits, Normal Mood/Affect Skin: Normal Color, Warm/Dry Lymphatic: No Adenopathy Results Lab Laboratory Tests 09/08/18 03:20 09/09/18 05:05 Assessment/Plan Assessment/Plan Acute respiratory failure with severe bilateral PNA -Continue titrate Fi02 -Repeat CXR -PT is now off Abx -Prednisone taper -Pt will need repeat CT scan of chest 8 wks after discharge. -MRSA swab is negative Pulmonary hemorrhage with s/p Hemoptysis bronchoscopy - ANCA, Anti GBM, GENE - Neg - Eliquis was stopped RLD -SVNS Q4 Acute renal failure -monitor -IVF BRIDGER -CPAP Anemia -Monitor -Occult stool is positive JUAN HESS DO Sep 09, 2018 07:52
[2018-09-09 08:00] VITALS: BP 167/93
[2018-09-09] MEDS: KCL 10 MEQ TAB (MICRO K) PO SCH ×2 (08:30→20:30)
[2018-09-09] MEDS: DILTIAZEM 300 MG (CARDIZEM CD) CAP PO SCH (08:30)
[2018-09-09] MEDS: LOSARTAN 25 MG (COZAAR) TAB PO SCH (08:30)
[2018-09-09] MEDS: meTOprolol TARTRATE 50 MG (LOPRESSOR) TAB PO SCH ×2 (08:31→20:30)
[2018-09-09] MEDS: PANTOPRAZOLE 40 MG (PROTONIX) TAB PO SCH (08:31)
[2018-09-09] MEDS: LORATADINE (CLARITIN) 10 MG TAB PO SCH (08:31)
[2018-09-09] MEDS: FUROSEMIDE 40 MG (LASIX) TAB PO SCH (08:31)
[2018-09-09] MEDS: LOPERAMIDE 2 MG (IMODIUM) CAP PO SCH ×2 (09:10→20:30)
--- NOTE | 2018-09-09 09:29 | Discharge Summary ---
Diagnosis/Chief Complaint Date of Admission Aug 31, 2018 at 17:14 Date of Discharge Discharge Summary Discharge Physical Examination Allergies: Coded Allergies: Sulfa (Sulfonamide Antibiotics) (Verified Allergy, Unknown, 08/31/18) montelukast (Unverified Adverse Reaction, Unknown, 06/08/16) Hallucinations per pt Vitals & I&Os Vital Signs Date Time Temp Pulse Resp B/P (MAP) Pulse Ox O2 Delivery O2 Flow Rate FiO2 09/09/18 08:00 94 High Flow N/C 3.00 09/09/18 08:00 97.4 68 20 167/93 (117) 09/08/18 15:34 32 General Appearance: Alert, Oriented X3, Cooperative, No Acute Distress HEENT: Atraumatic, PERRLA Respiratory: Clear to Auscultation, Normal Air Movement Cardiovascular: Regular Rate, Normal S1, Normal S2 Abdominal: Normal Bowel Sounds, Soft Extremities: No Clubbing, No Cyanosis, Other (EDEMA BILATERAL LOWER EXTREMITIES TO KNEES 2-3+) Skin: No Rashes Neuro: Normal Gait, Normal Speech, Cranial Nerves 3-12 NL Psych/Mental Status: Mental Status NL, Mood NL Hospital Course Pending Labs Laboratory Tests 09/09/18 05:05: White Blood Count 14.9, Red Blood Count 4.05, Hemoglobin 12.7, Hematocrit 37, Mean Corpuscular Volume 91, Mean Corpuscular Hemoglobin 31, Mean Corpuscular Hemoglobin Concent 34, Red Cell Distribution Width 14.1, Platelet Count 237, Mean Platelet Volume 9.5, Neutrophils (%) (Auto) 85, Lymphocytes (%) (Auto) 7, Monocytes (%) (Auto) 8, Eosinophils (%) (Auto) 0, Basophils (%) (Auto) 0, Neutrophils # (Auto) 12.7, Lymphocytes # (Auto) 1.1, Monocytes # (Auto) 1.1, Eosinophils # (Auto) 0.0, Basophils # (Auto) 0.0, Sodium Level 141, Potassium Level 3.7, Chloride Level 99, Carbon Dioxide Level 30, Anion Gap 12, Blood Urea Nitrogen 32, Creatinine 0.92, Estimat Glomerular Filtration Rate > 60, BUN/Creatinine Ratio 35, Glucose Level 163, Calcium Level 8.3, Corrected Calcium 9.1, Total Bilirubin 0.8, Aspartate Amino Transf (AST/SGOT) 26, Alanine Aminotransferase (ALT/SGPT) 48, Alkaline Phosphatase 56, Total Protein 5.4, Albumin 3.0 09/09/18 05:22: Glucometer 154 Discharge Instructions to patient/family Please see electronic discharge instructions given to patient. Discharge Medications Reviewed and agree with Discharge Medication list on patient's Discharge Instruction sheet Clinical Quality Measures AMI/AHF: ASA po Prior to arrival: No DVT/VTE Risk/Contraindication: Risk Factor Score Per Nursin RFS Level Per Nursing on Admit: 4+=Very High CODEY BARILLAS MD Sep 09, 2018 09:29
[2018-09-09] MEDS ORDERED: APIX5TAB PO (09:36)
[2018-09-09] MEDS ORDERED: DILT300C52 PO (09:36)
[2018-09-09] MEDS ORDERED: TAMS0.4C98 PO (09:36)
[2018-09-09] MEDS ORDERED: ASPI-983 PO (09:36)
--- NOTE | 2018-09-09 09:53 | Cardiology Progress Note ---
Subjective Date Seen by Provider: Sep 09, 2018 Time Seen by Provider: 09:52 Subjective/Events-last exam Patient sitting up in chair, no new complaint. Dyspnea continues to improve. Objective-Cardiology Exam Last Set of Vital Signs Vital Signs 09/08/18 09/09/18 15:34 08:00 Temp 97.4 Pulse 68 Resp 20 B/P (MAP) 167/93 (117) Pulse Ox 94 O2 Delivery High Flow N/C O2 Flow Rate 3.00 FiO2 32 Capillary Refill : Less Than 3 Seconds I&O Intake and Output 09/09/18 00:00 Intake Total 2690 ml Output Total 950 ml Balance 1740 ml Intake Oral 2690 ml Output Urine Total 950 ml # Voids 4 # Bowel Movements 1 General: Alert, Oriented X3, Cooperative, No Acute Distress HEENT: Atraumatic, PERRLA Neck: Supple Lungs: Clear to Auscultation, Normal Air Movement Heart: Regular Rate, Normal S1, Normal S2 Abdomen: Normal Bowel Sounds, Soft Extremities: No Clubbing, No Cyanosis, Other (EDEMA BILATERAL LOWER EXTREMITIES TO KNEES 2-3+) Skin: No Rashes Neuro: Normal Gait, Normal Speech, Cranial Nerves 3-12 NL Psych/Mental Status: Mental Status NL, Mood NL Results Lab Laboratory Tests 09/09/18 05:05 A/P-Cardiology Admission Diagnosis Pneumonia Congestive heart failure, chronic compensated left ventricular diastolic dysfunction Coronary artery disease Chronic atrial fibrillation Assessment/Plan Bilateral pneumonia, improving, managed by primary care physician Peripheral edema, acute on chronic left ventricular diastolic dysfunction, receiving diuretics and responding well. Feeling better. Continue to monitor 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 Cardiac cath from December 30, 2013 in which successful GAURI x 2, one to the proximal and one to the mid vessel LAD, was done. 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 Pacemaker currently in the VVIR mode, due to permanent atrial fib. The patient had a pulse generator change out on 12/18/2011. The device is functioning normally per last interrogation of 06/26/18, but appears to be approaching DIMITRIOS (10 month: 1 month to 19 months) History of ulcerative colitis, being managed by Dr. Parsons and Dr. Seymour Stroke prophylaxis with Eliquis, currently on hold in preparation for bronchoscopy Sleep apnea for which he is following with Dr Mijares - Bi-pap therapy Hyperlipidemia being treated with rosuvastatin. Mild carotid arterial disease that has been followed by Dr. Mcdaniel History of cholecystectomy. Impaired fasting glucose Elevated BMI of approx 30 S/p melanoma removal from the back in 2018, followed by Dr Parsons Clinical Quality Measures AMI/AHF: ASA po Prior to arrival: No DVT/VTE Risk/Contraindication: Risk Factor Score Per Nursin RFS Level Per Nursing on Admit: 4+=Very High Supervisory-Addendum Brief Supervisory Addendum Participated in pt care: history, MDM, physical Personally performed: exam, history, MDM Care discussed with: PAM Notes: Patient was seen and evaluated with Flaquita, sitting in bed, denied any chest pain, no shortness of breath, reporting improvement, still having some weakness. Being discharged today. On examination lungs were clear to auscultation bilaterally, heart is regular. Patient is receiving antibiotic for pneumonia. Has history of coronary artery disease and atrial fibrillation. FLAQUITA CRANE Sep 09, 2018 9:53 am DAVID HOYOS MD Sep 09, 2018 10:37 am
--- NOTE | 2018-09-09 10:10 | Diagnostic Imaging Report ---
INDICATION: Hypoxemia. EXAMINATION: Portable chest at 9:31 AM. FINDINGS: There are postop changes from CABG surgery. There is a dual-chamber pacemaker. The heart size and pulmonary vascularity are normal. The lungs are clear. There are no effusions or pneumothoraces. IMPRESSION: No acute abnormality is the chest. Dictated by: Dictated on workstation # [id number]
--- NOTE | 2018-09-09 11:13 | NUR ---
LEFT MESSAGE AT DR BARILLAS'S OFFICE ABOUT RIGHT CALF HURTING. PATIENT REPORTED IT TO PHYSICAL THERAPIST CHIDI. SHE REQUESTED THAT THE LEG BE CHECKED FOR A BLOOD CLOT.
--- NOTE | 2018-09-09 11:37 | Physical Therapy Daily Note ---
PT Daily Note-Current Subjective Patient agrees to PT. Pain Numeric Pain Scale: 5-Moderate Pain Location: Right Location Body Site: Calf Pain Description: Pressure, Sharp Mental Status Patient Orientation: Normal For Age Attachments: Oxygen Transfers Therapy Code Descriptions/Definitions Functional [place] Measure: 0=Not Assessed/NA 4=Minimal Assistance 1=Total Assistance 5=Supervision or Setup 2=Maximal Assistance 6=Modified [place] 3=Moderate Assistance 7=Complete [place] Therapy Quality Codes: 6 Independent with activity with or without an assistive device 5 Patient requires set up or clean up by helper. Patient completes activity by themselves 4 Supervision or touching assist (CGA). [place] provide cues , steadying assist 3 The helper provides less than half the effort to complete the activity 2 The helper provides more than half the effort to complete the activity 1 Dependent. The helper does all the effort to complete an activity 7 Patient refused to complete or attempt activity 9 The patient did not perform the activity before the current illness or injury 88 Not attempted due to Medical conditions or safety concerns Transfers (B, C, W/C) (FIM): 5 Scootin Sit to/from Stand: 5 close SBA due to right LE pain/weakness due to edema in calf Gait Training Gait (FIM): 4 Distance (FIM): 3=150 ft Distance: 200' Gait Level of Assist: 4 Gait Assistive Device: FWW multiple stand recovery period due to right calf pain/weakness Exercises Supine Ex: Quad Set, Heel Slides, Straight leg raise Supine Reps: 15 (in recliner with bilateral Le elevated) Seated Therapy Exercises: Ankle pumps, Long arc quads Seated Reps: 15 Assessment Noted right calf edema with pain with dorsiflexion. PT consulted with RN to consult with physician to r/o DVT. Patient tolerated treatment and performed all activity as tolerated. PT Custodial Goals Custodial Goals PT Custodial Goals Time Frame: Sep 11, 2018 Transfers (B,C,W/C) (FIM): 7 Gait (FIM): 6 PT Plan Treatment/Plan Treatment Plan: Continue Plan of Care Treatment Plan: Bed Mobility, Education, Functional Activity [place], Functional Strength, Gait, Therapeutic Exercise, Transfers Treatment Duration: Sep 11, 2018 Frequency: 6 times per week Estimated Hrs Per Day: .5 hour per day Patient and/or Family Agrees t: Yes Time/GCodes Time In: 1054 Time Out: 1113 Total Billed Treatment Time: 19 Total Billed Treatment 1 visit FA 19 min CHIDI HUANG PT Sep 09, 2018 11:37
--- NOTE | 2018-09-09 14:05 | Occupational Ther Daily Note ---
OT Current Status-Daily Note Subjective pt sitting in chiar upon OT arrival in no apparent distress. pt agreed to OT TX session with focus on increase independence with ADLS. pt complains of 4/10 R knee pain. pt stated he would like to d/c to inpt rehab. Appearance noted R Knee edema. Mental Status/Objective Therapy Code Descriptions/Definitions Functional [place] Measure: 0=Not Assessed/NA 4=Minimal Assistance 1=Total Assistance 5=Supervision or Setup 2=Maximal Assistance 6=Modified [place] 3=Moderate Assistance 7=Complete [place] ADL-Treatment Lower Body Dressing (FIM): 4 (CGA for safety/ balance while pt jerry. doff erica socks. pt educaiton on position 4 figure to increase independence with LB dressing. pt demo correctly with 1 LOB. noted limited actviity tolernace during task. pt education on pursed lip breathing and demo correctly. ) Toileting (FIM): 4 (pt stated he is unable to perform hyginene on self. pt educaiton on standing to complete task. pt required encourgement to perform task. skilled education to stand and maiantin balance with RW with oppoiste hand. pt demo understanidng and perform task with CGA for safety/ balance. ) Education OT Patient Education: Energy conservation, Modified ADL techniques, Progress toward Goal/Update tx plan, Purpose of tx/functional activities Teaching Recipient: Patient Teaching Methods: Demonstration, Discussion Response to Teaching: Verbalize Understanding, Return Demonstration OT Short Term Goals Short Term Goals 1=Demonstrate adherence to instructed precautions during ADL tasks. 2=Patient will verbalize/demonstrate understanding of assistive devices/modifications for ADL. 3=Patient will improve strength/tolerance for activity to enable patient to perform ADL's. OT Stone Setter Goals Chcf Goals Time Frame: Sep 20, 2018 Eating (FIM): 6 Grooming(FIM): 7 Bathing(FIM): 6 Upper Body Dressing(FIM): 7 Lower Body Dressing(FIM): 6 Toileting(FIM): 6 Toilet/Commode Transfer(FIM): 6 Shower Transfer(FIM): 6 Additional Goals: 1-Demonstrate ADL Tasks, 2-Verbalize Understanding, 3- ImproveStrength/Gilbert 1=Demonstrate adherence to instructed precautions during ADL tasks. 2=Patient will verbalize/demonstrate understanding of assistive devices/modifications for ADL. 3=Patient will improve strength/tolerance for activity to enable patient to perform ADL's. OT Education/Plan Problem List/Assessment Assessment: Decreased Activ Tolerance, Decreased Safety Aware, Impaired Funct Balance, Impaired I ADL's, Impaired Self-Care Skills Pt would benefit from skilled OT to increase his independence in basic self care after hospitalization, including time in intensive care, to allow him to safely return home and decrease risk of falling Discharge Recommendations Plan/Recommendations: Continue POC Therapy D/C Recommendations: Acute Rehab Treatment Plan/Plan of Care Treatment,Training & Education: Yes Patient would benefit from OT for education, treatment and training to promote independence in ADL's, mobility, safety and/or upper extremity function for ADL's. Plan of Care: ADL Retraining, Functional Mobility, UE Funct Exercise/Act, UE Neuromus Re-Ed/Coord Treatment Duration: Sep 20, 2018 Frequency: 5 times per week Estimated Hrs Per Day: .5 hour per day Agreement: Yes Rehab Potential: Good Time/GCodes Start Time: 13:30 Stop Time: 13:55 Billed Treatment Time ADL 25 minutes, 2 units PAMELA JAFFE OT Sep 09, 2018 14:05
[2018-09-09 15:26] VITALS: BP 128/71
[2018-09-09] MEDS: TAMSULOSIN 0.4 MG (FLOMAX) CAP PO SCH (17:19)
[2018-09-09] MEDS: MELATONIN 3 MG TABLET PO SCH (20:30)
[2018-09-09] MEDS: MESALAMINE 1.2 GM PO SCH (20:30)
[2018-09-09 23:16] VITALS: BP 191/95
[2018-09-10] MEDS: inSUlin ASPART (NovoLOG) 1 UNIT/0.01 ML (CHARGE PER UNIT) SQ SCH ×4 (00:59→17:58)
[2018-09-10] MEDS: RT-ALBUTEROL/IPRATROPIUM 3 ML (DUONEB) VIAL INH SCH ×4 (02:41→21:54)
[2018-09-10] MEDS: LACTOBACILLUS ACIDOPHILUS (PROBIOTIC) CAPSULE PO SCH ×2 (06:33→17:36)
[2018-09-10] MEDS: predniSONE 20 MG TAB PO SCH (06:34)
--- NOTE | 2018-09-10 07:10 | Pulmonary Progress Note ---
Subjective Time Seen by a Provider: 07:10 Sepsis Event Evaluation Height, Weight, BMI Height: 5'8.00" Weight: 210lbs. 3.0oz. 95.565700qa; 30.2 BMI Method:Stated Exam Exam Vital Signs Date Time Temp Pulse Resp B/P (MAP) Pulse Ox O2 Delivery O2 Flow Rate FiO2 09/10/18 02:43 Nasal Cannula 3.00 09/09/18 23:16 97.6 69 18 191/95 (127) 96 NIV CPAP 09/09/18 20:54 96 Nasal Cannula 3.00 09/09/18 20:00 Nasal Cannula 3.00 09/09/18 15:26 97.2 64 20 128/71 (90) 96 High Flow N/C 3.00 09/09/18 14:38 94 Nasal Cannula 3.00 09/09/18 08:00 94 High Flow N/C 3.00 09/09/18 08:00 97.4 68 20 167/93 (117) 96 High Flow N/C 3.00 I & O 09/10/18 07:00 Intake Total 2157 ml Output Total 950 ml Balance 1207 ml Height & Weight Height: 5'8.00" Weight: 210lbs. 3.0oz. 95.292202kx; 30.2 BMI Method:Stated General Appearance: No Apparent Distress, WD/WN, Anxious, Chronically ill HEENT: PERRL/EOMI, Normal ENT Inspection, Pharynx Normal, Moist Mucous Membranes Neck: Full Range of Motion, Normal Inspection, Non Tender Respiratory: Chest Non Tender, Lungs Clear, Normal Breath Sounds, No Accessory Muscle Use, No Respiratory Distress, Accessory Muscle Use Cardiovascular: Regular Rate, Rhythm, No Gallop, No JVD, No Murmur, Normal Peripheral Pulses Capillary Refill: Less Than 3 Seconds Extremity: Normal Capillary Refill, Normal Inspection, Normal Range of Motion, Non Tender, No Calf Tenderness, Pedal Edema Neurologic/Psychiatric: Alert, Oriented x3, No Motor/Sensory Deficits, Normal Mood/Affect Skin: Normal Color, Warm/Dry Lymphatic: No Adenopathy Results Lab Laboratory Tests 09/09/18 05:05 Assessment/Plan Assessment/Plan Acute respiratory failure with severe bilateral PNA -Continue titrate Fi02 -Repeat CXR -Prednisone decrease to 10mg PO daily -Pt will need repeat CT scan of chest 8 wks after discharge. -MRSA swab is negative Pulmonary hemorrhage with s/p Hemoptysis bronchoscopy - ANCA, Anti GBM, GENE - Neg - Eliquis was stopped RLD -SVNS Q4 Acute renal failure -monitor -IVF BRIDGER -CPAP Anemia -Monitor -Occult stool is positive JUAN HESS DO Sep 10, 2018 07:10
[2018-09-10] MEDS: LORATADINE (CLARITIN) 10 MG TAB PO SCH (08:03)
[2018-09-10] MEDS: FUROSEMIDE 40 MG (LASIX) TAB PO SCH (08:04)
[2018-09-10] MEDS: DILTIAZEM 300 MG (CARDIZEM CD) CAP PO SCH (08:04)
[2018-09-10] MEDS: KCL 10 MEQ TAB (MICRO K) PO SCH ×2 (08:04→20:57)
[2018-09-10] MEDS: PANTOPRAZOLE 40 MG (PROTONIX) TAB PO SCH (08:04)
[2018-09-10] MEDS: meTOprolol TARTRATE 50 MG (LOPRESSOR) TAB PO SCH ×2 (08:04→20:58)
[2018-09-10] MEDS: LOSARTAN 25 MG (COZAAR) TAB PO SCH (08:04)
[2018-09-10 08:28] VITALS: BP 164/78
[2018-09-10] MEDS: LOPERAMIDE 2 MG (IMODIUM) CAP PO SCH ×2 (09:03→20:58)
--- NOTE | 2018-09-10 10:09 | Diagnostic Imaging Report ---
INDICATION: Right leg pain. Right leg venous Doppler study was performed in the routine fashion with color flow Doppler and waveform analysis. FINDINGS: The right common femoral vein, superficial femoral vein, popliteal vein and visualized portion of the tibial veins show normal compressibility and venous flow patterns. There is normal augmentation. IMPRESSION: No evidence of deep vein thrombosis of the major veins of the right leg. Dictated by: Dictated on workstation # [id number]
--- NOTE | 2018-09-10 10:14 | Physical Therapy Daily Note ---
PT Daily Note-Current Subjective Patient continues to c/o right LE tightness and weakness. Pain Numeric Pain Scale: 3 Location: Medial Location Body Site: Calf Pain Description: Pressure, Acute Mental Status Patient Orientation: Normal For Age Attachments: Oxygen (3L HF) Transfers Therapy Code Descriptions/Definitions Functional [place] Measure: 0=Not Assessed/NA 4=Minimal Assistance 1=Total Assistance 5=Supervision or Setup 2=Maximal Assistance 6=Modified [place] 3=Moderate Assistance 7=Complete [place] Therapy Quality Codes: 6 Independent with activity with or without an assistive device 5 Patient requires set up or clean up by helper. Patient completes activity by themselves 4 Supervision or touching assist (CGA). [place] provide cues , steadying assist 3 The helper provides less than half the effort to complete the activity 2 The helper provides more than half the effort to complete the activity 1 Dependent. The helper does all the effort to complete an activity 7 Patient refused to complete or attempt activity 9 The patient did not perform the activity before the current illness or injury 88 Not attempted due to Medical conditions or safety concerns Transfers (B, C, W/C) (FIM): 5 Scootin Rollin Supine to/from Sit: 6 Sit to/from Stand: 5 Bed to/from Chair: 5 SBA for safety Weight Bearing Right Lower Extremity: Right Full Weight Bearing Left Lower Extremity: Left Full Weight Bearing Gait Training Gait (FIM): 4 Distance (FIM): 3=150 ft Distance: 275' Gait Level of Assist: 4 Gait Persons Needed: 1 Gait Assistive Device: FWW CGA due to right LE weakness Exercises Supine Ex: Ankle pumps, Quad Set, Heel Slides, Straight leg raise Supine Reps: 10 (in recliner) Seated Therapy Exercises: Ankle pumps, Long arc quads Seated Reps: 15 Assessment Patient has been instructed to stand EOchair to perform marching with FWW 4/day to increase functional strength and mobility. Dr. Parsons consulted by this PT on right LE concern of edema/tightness and weakness. She is addressing this concern. PT Skilled Nursing Goals Skilled Nursing Goals PT Surveillance Director Goals Time Frame: Sep 21, 2018 Transfers (B,C,W/C) (FIM): 7 Gait (FIM): 6 PT Plan Treatment/Plan Treatment Plan: Continue Plan of Care Treatment Plan: Bed Mobility, Education, Functional Activity [place], Functional Strength, Gait, Therapeutic Exercise, Transfers Treatment Duration: Sep 21, 2018 Frequency: 6 times per week Estimated Hrs Per Day: .5 hour per day Patient and/or Family Agrees t: Yes Time/GCodes Time In: 915 Time Out: 934 Total Billed Treatment Time: 19 Total Billed Treatment 1 visit FA 19 min CHIDI HUANG PT Sep 10, 2018 10:14
--- NOTE | 2018-09-10 10:20 | NUR ---
CALLED DR BARILLAS'S CELL PHONE TO REPORT RESULTS OF L.E. ULTRASOUND SHE REQUESTED. NO ANSWER. LEFT MESSAGE IN THE EVEN T THAT HER OFFICE DOES NOT GIVE HER THE MESSAGE.
--- NOTE | 2018-09-10 10:22 | Occupational Ther Daily Note ---
OT Current Status-Daily Note Subjective Pt alert, lying in bed. Pt agrees to therapy. No c/o pain. Mental Status/Objective Patient Orientation: Person, Place, Time, Situation Therapy Code Descriptions/Definitions Functional [place] Measure: 0=Not Assessed/NA 4=Minimal Assistance 1=Total Assistance 5=Supervision or Setup 2=Maximal Assistance 6=Modified [place] 3=Moderate Assistance 7=Complete [place] Other Treatment Pt given medium resistance theraband and HEP for use in room. Skilled instructions needed for correct technique. Pt educated on how to use, increase or decrease resistance as needed and amount to do and when to increase. Discussed that increasing UE strength with assist with transfers and ambulation while using FWW. Pt demonstrated understanding of each exercise and was able to count and follow directions appropriately. Pt completed 7 exercises, no SOA noted. Pt encouraged to complete exercises 2x's per day. After therapy, pt lying in bed with call light/phone in reach. All needs met in room. Education OT Patient Education: Exercise program Teaching Recipient: Patient, Family Teaching Methods: Demonstration, Handout, Discussion Response to Teaching: Verbalize Understanding, Return Demonstration, Reinforcement Needed OT Short Term Goals Short Term Goals 1=Demonstrate adherence to instructed precautions during ADL tasks. 2=Patient will verbalize/demonstrate understanding of assistive devices/modifications for ADL. 3=Patient will improve strength/tolerance for activity to enable patient to perform ADL's. OT Assisted Goals Assisted Goals Time Frame: Sep 20, 2018 Eating (FIM): 6 Grooming(FIM): 7 Bathing(FIM): 6 Upper Body Dressing(FIM): 7 Lower Body Dressing(FIM): 6 Toileting(FIM): 6 Toilet/Commode Transfer(FIM): 6 Shower Transfer(FIM): 6 Additional Goals: 1-Demonstrate ADL Tasks, 2-Verbalize Understanding, 3-ImproveStrength/Gilbert 1=Demonstrate adherence to instructed precautions during ADL tasks. 2=Patient will verbalize/demonstrate understanding of assistive devices/modifications for ADL. 3=Patient will improve strength/tolerance for activity to enable patient to perform ADL's. OT Education/Plan Problem List/Assessment Assessment: Decreased UE Strength, Impaired Self-Care Skills Pt would benefit from skilled OT to increase his independence in basic self care after hospitalization, including time in intensive care, to allow him to safely return home and decrease risk of falling Discharge Recommendations Plan/Recommendations: Continue POC Treatment Plan/Plan of Care Patient would benefit from OT for education, treatment and training to promote independence in ADL's, mobility, safety and/or upper extremity function for ADL's. Plan of Care: ADL Retraining, Functional Mobility, UE Funct Exercise/Act, UE Neuromus Re-Ed/Coord Treatment Duration: Sep 20, 2018 Frequency: 5 times per week Estimated Hrs Per Day: .5 hour per day Agreement: Yes Rehab Potential: Good Time/GCodes Start Time: 10:00 Stop Time: 10:15 Total Time Billed (hr/min): 15 Billed Treatment Time 1 visit-EX 1 (15 min) NERY ADAIR Sep 10, 2018 10:22
--- NOTE | 2018-09-10 10:22 | NUR ---
CALLED DR BARILLAS'S OFFICE HER CELL PHONE MESSAGE INSTRUCTS. THIS RN ASKED TO SPEAK WITH THE DOCTOR TO REPORT THE TEST RESULTS. DR BARILLAS IN NOT IN THE OFFICE AT THIS TIME. THIS RN A LEFT MESSAGE REGARDING THE ULTRASOUND RESULTS WITH PAUL AT HER OFFICE. I SPECIFICALLY REQUESTED THAT SHE GIVE THE MESSAGE TO DOCTOR ERAN SINCE THE MESSAGE I LEFT AT HER OFFICE YESTERDAY DID NOT GET PASSED ON TO THE DOCTOR.
--- NOTE | 2018-09-10 11:21 | NUR ---
Swing Bed Note: Qualifies for swing bed for continued need for nursing for medication adjustment of oral blood thinners with close monitoring for bleeding. Recent history of blood thinner with pulmonary hemorrhage. Also qualifies for short term Physical et Occupational therapies to return to prior independent function. Benefits et coverage discussed with patient et et consent was obtained to access his skilled benefits. Authorization received by [employer] for 7 days. Auth number [id number]. Post acute care fax number for additional days requested is attn Charbel Jacobo.
--- NOTE | 2018-09-10 12:17 | Cardiology Progress Note ---
Subjective Date Seen by Provider: Sep 10, 2018 Time Seen by Provider: 12:16 Subjective/Events-last exam Patient in chair, no new complaints. Denies any chest pain or increased dyspnea. Objective-Cardiology Exam Last Set of Vital Signs Vital Signs 09/08/18 09/10/18 09/10/18 15:34 08:28 09:13 Temp 97.1 Pulse 65 Resp 20 B/P (MAP) 164/78 (106) Pulse Ox 95 O2 Delivery Nasal Cannula O2 Flow Rate 3.00 FiO2 32 Capillary Refill : Less Than 3 Seconds I&O Intake and Output 09/10/18 00:00 Intake Total 2207 ml Output Total 450 ml Balance 1757 ml Intake Oral 2207 ml Output Urine Total 450 ml # Voids 5 # Bowel Movements 2 General: Alert, Oriented X3, Cooperative, No Acute Distress HEENT: Atraumatic, PERRLA Neck: Supple Lungs: Clear to Auscultation, Normal Air Movement Heart: Regular Rate, Normal S1, Normal S2 Abdomen: Normal Bowel Sounds, Soft Extremities: No Clubbing, No Cyanosis, Other (EDEMA BILATERAL LOWER EXTREMITIES TO KNEES 2-3+) Skin: No Rashes Neuro: Normal Gait, Normal Speech, Cranial Nerves 3-12 NL Psych/Mental Status: Mental Status NL, Mood NL A/P-Cardiology Admission Diagnosis Pneumonia Congestive heart failure, chronic compensated left ventricular diastolic dysfunction Coronary artery disease Chronic atrial fibrillation Assessment/Plan Bilateral pneumonia, improving, managed by primary care physician Peripheral edema, acute on chronic left ventricular diastolic dysfunction, receiving diuretics and responding well. Feeling better. Continue to monitor 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 Cardiac cath from December 30, 2013 in which successful GAURI x 2, one to the proximal and one to the mid vessel LAD, was done. 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 Pacemaker currently in the VVIR mode, due to permanent atrial fib. The patient had a pulse generator change out on 12/18/2011. The device is functioning normally per last interrogation of 06/26/18, but appears to be approaching DIMITRIOS (10 month: 1 month to 19 months) History of ulcerative colitis, being managed by Dr. Parsons and Dr. Seymour Stroke prophylaxis with Eliquis, currently on hold in preparation for bro nchoscopy Sleep apnea for which he is following with Dr Mijares - Bi-pap therapy Hyperlipidemia being treated with rosuvastatin. Mild carotid arterial disease that has been followed by Dr. Mcdaniel History of cholecystectomy. 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 Denied any chest pain. No palpitation. On examination lungs had bilateral rhonchi, heart is regular. I will continue on current medication continue to monitor, no changes are recommended FLAQUITA CRANE Sep 10, 2018 12:17 DAVID HOYOS MD Sep 10, 2018 12:39
[2018-09-10 16:00] VITALS: BP 136/88
[2018-09-10] MEDS: TAMSULOSIN 0.4 MG (FLOMAX) CAP PO SCH (17:36)
[2018-09-10] MEDS: MELATONIN 3 MG TABLET PO SCH (20:57)
[2018-09-10] MEDS: MESALAMINE 1.2 GM PO SCH (20:59)
--- NOTE | 2018-09-10 21:03 | Progress Note ---
Objective Exam Last Set of Vital Signs Vital Signs Date Time Temp Pulse Resp B/P (MAP) Pulse Ox O2 Delivery O2 Flow Rate FiO2 09/10/18 16:00 97.2 60 18 136/88 (104) 99 High Flow N/C 2.50 09/08/18 15:34 32 Capillary Refill : Less Than 3 Seconds I&O Intake and Output 09/10/18 00:00 Intake Total 2207 ml Output Total 450 ml Balance 1757 ml Intake Oral 2207 ml Output Urine Total 450 ml # Voids 5 # Bowel Movements 2 General: Alert, Oriented X3, Cooperative, No Acute Distress HEENT: Atraumatic, PERRLA Neck: Supple Lungs: Clear to Auscultation, Normal Air Movement Heart: Regular Rate, Normal S1, Normal S2 Abdomen: Normal Bowel Sounds, Soft Extremities: No Clubbing, No Cyanosis, Other ([place] BILATERAL LOWER EXTREMITIES TO KNEES 2-3+) Skin: No Rashes Neuro: Normal Gait, Normal Speech, Cranial Nerves 3-12 NL Psych/Mental Status: Mental Status NL, Mood NL Results Lab Laboratory Tests 09/10/18 00:41: Glucometer 194H 09/10/18 05:47: Glucometer 119H 09/10/18 11:29: Glucometer 184H 09/10/18 17:43: Glucometer 162H Microbiology 08/31/18 Blood Culture - Final, Complete No growth 09/04/18 Mycobacterial Culture - Preliminary, Resulted Assessment/Plan Assessment/Plan Assess & Plan/Chief Complaint PNEUMONIA RESPIRATORY FAILURE HYPERTENSION CORONARY ARTERY DISEASE ACUTE RENAL FAILURE MILD CONGESTIVE HEART FAILURE ANEMIA COPD SLEEP APNEA HYPONATREMIA AND HYPOKALEMIA ULCERATIVE COLITIS INSOMNIA URINARY HESITANCY PNEUMONIA - ON CEFEPIME AND VANCOMYCIN - CONTINUE WITH CURRENT REGIMEN - SERIAL CHEST XRAYS - NOW ON NASAL CANULA - DEFER TO DR. HESS, PT IS POST BRONCHOSCOPY - PATHOLOGY REPORT DOES NOT SHOW CANCER CELLS AT THIS TIME.. PT MOVED DOWN TO 4TH FLOOR. WEAKNESS - FROM PROLONGED HOSPITALIZATION - PT RECEIVING THERAPY - DEPENDING ON HOW HE DOES, WE WILL SEE IF HE QUALIFIES TO BE ADMITTED TO INPT REHAB THIS WEEKEND. - CONTINUE WITH PHYSICAL AND OCCUPATIONAL THERAPY. RESPIRATORY FAILURE- ON IMPROVED - NOW ON NASAL CANULA HYPERTENSION - RESUMED HOME REGIMEN CORONARY ARTERY DISEASE - PACEMAKER - MILD CONGESTIVE HEART FAILURE- DISCUSSED WITH PT - DEFER TO CARDIOLOGY - SEE ECHO REPORT. ACUTE RENAL FAILURE - MONITOR RENAL FUNCTION - ESPECIALLY WITH THE LARGE DOSE OF LASIX ORDERED BY CARDIOLOGY. ANEMIA -STOP ELIQUIS AND ASPIRIN FOR NOW - WILL HOLD FOR ABOUT 5-6 DAYS AND RESTART PRIOR TO DISCHARGE TO HOME. COPD - CHRONIC - DEFER TO DR. HESS SLEEP APNEA - ON BIPAP AT HS. HYPONATREMIA AND HYPOKALEMIA - REPLACE NEEDED ULCERATIVE COLITIS - LIALDA TO BE RESTARTED TODAY. INSOMNIA - SHOULD IMPROVE WITH PATIENT ON 4TH FLOOR, IV ANXIOLYTIC AND MELATONIN. URINARY HESITANCY - START ON FLOMAX TODAY. DISCUSSED WITH DR. ESTEBAN WHO IS COUNTER STACKER THIS WEEKEND - PLAN WILL BE FOR DISCHARGE DOWN TO INPT REHAB IF HE QUALIFIES AND HIS INSURANCE WILL ALLOW THIS ADMISSION. Clinical Quality Measures AMI/AHF: ASA po Prior to arrival: No DVT/VTE Risk/Contraindication: Risk Factor Score Per Nursin RFS Level Per Nursing on Admit: 4+=Very High CODEY BARILLAS MD Sep 10, 2018 21:03
[2018-09-10 23:45] VITALS: BP 159/82
[2018-09-11] MEDS: inSUlin ASPART (NovoLOG) 1 UNIT/0.01 ML (CHARGE PER UNIT) SQ SCH ×2 (00:46→05:28)
[2018-09-11] MEDS: RT-ALBUTEROL/IPRATROPIUM 3 ML (DUONEB) VIAL INH SCH ×2 (03:00→06:17)
[2018-09-11] MEDS: LACTOBACILLUS ACIDOPHILUS (PROBIOTIC) CAPSULE PO SCH (06:22)
[2018-09-11] MEDS ORDERED: predniSONE 10 MG TAB PO SCH (07:00)
[2018-09-11 08:31] VITALS: BP 167/74
--- NOTE | 2018-09-11 08:56 | Cardiology Progress Note ---
Subjective Date Seen by Provider: Sep 11, 2018 Time Seen by Provider: 08:54 Subjective/Events-last exam Patient is sitting up in chair, reports breathing continues to improve. Denies any chest pain or dyspnea. Objective-Cardiology Exam Last Set of Vital Signs Vital Signs 09/08/18 09/11/18 15:34 08:31 Temp 97.3 Pulse 64 Resp 22 B/P (MAP) 167/74 (105) Pulse Ox 99 O2 Delivery High Flow N/C O2 Flow Rate 1.00 FiO2 32 Capillary Refill : Less Than 3 Seconds I&O Intake and Output 09/11/18 00:00 Intake Total 2270 ml Output Total 1100 ml Balance 1170 ml Intake Oral 2270 ml Output Urine Total 1100 ml # Voids 6 # Bowel Movements 2 General: Alert, Oriented X3, Cooperative, No Acute Distress HEENT: Atraumatic, PERRLA Neck: Supple Lungs: Clear to Auscultation, Normal Air Movement Heart: Regular Rate, Normal S1, Normal S2 Abdomen: Normal Bowel Sounds, Soft Extremities: No Clubbing, No Cyanosis, Other (+1 edema BLE) Skin: No Rashes Neuro: Normal Gait, Normal Speech, Cranial Nerves 3-12 NL Psych/Mental Status: Mental Status NL, Mood NL A/P-Cardiology Admission Diagnosis Pneumonia Congestive heart failure, chronic compensated left ventricular diastolic dysfunction Coronary artery disease Chronic atrial fibrillation Assessment/Plan Bilateral pneumonia, improving, managed by primary care physician Peripheral edema, acute on chronic left ventricular diastolic dysfunction, receiving diuretics and responding well. Feeling better. Continue to monitor 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 Cardiac cath from December 30, 2013 in which successful GAURI x 2, one to the proximal and one to the mid vessel LAD, was done. 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 Pacemaker currently in the VVIR mode, due to permanent atrial fib. The patient had a pulse generator change out on 12/18/2011. The device is functioning normally per last interrogation of 06/26/18, but appears to be approaching DIMITRIOS (10 month: 1 month to 19 months) History of ulcerative colitis, being managed by Dr. Parsons and Dr. Seymour Stroke prophylaxis with Eliquis Sleep apnea for which he is following with Dr Mijares - Bi-pap therapy Hyperlipidemia being treated with rosuvastatin. Mild carotid arterial disease that has been followed by Dr. Mcdaniel History of cholecystectomy. Impaired fasting glucose Elevated BMI of approx 30 S/p melanoma removal from the back in 2018, followed by Dr Parsons Clinical Quality Measures AMI/AHF: ASA po Prior to arrival: No DVT/VTE Risk/Contraindication: Risk Factor Score Per Nursin RFS Level Per Nursing on Admit: 4+=Very High MEET CRANE Sep 11, 2018 08:55
[2018-09-13] MEDS ORDERED: MELA1TAB20 PO (09:19)
== END 2018-09-11 08:41 | disposition swing bed (61) | DRG 193 ==
LOC: EDUNIT# 14:04 → ER 14:06 → 4TH 17:14 → ICU 09-01 02:00 → 4TH 09-05 14:43 → EDPENDDISTM 09-11 08:30 → EDPENDDISDT 09-11 08:30
PROVIDERS: ADMIT Internal Medicine; ATTEND Internal Medicine
PROC: 0B9D8ZX Drainage of Right Middle Lung Lobe, Via Natural or Artificial Opening Endoscopic, Diagnostic (ICD-10-PCS; principal; 2018-09-04)
PROC: 0BD58ZX Extraction of Right Middle Lobe Bronchus, Via Natural or Artificial Opening Endoscopic, Diagnostic (ICD-10-PCS; 2018-09-04)
DX: J18.1 Lobar pneumonia, unspecified organism (principal); J96.00 Acute respiratory failure, unspecified whether with hypoxia or hypercapnia; I11.0 Hypertensive heart disease with heart failure; I50.33 Acute on chronic diastolic (congestive) heart failure; J45.41 Moderate persistent asthma with (acute) exacerbation; J90 Pleural effusion, not elsewhere classified; I48.92 Unspecified atrial flutter; J44.0 Chronic obstructive pulmonary disease with (acute) lower respiratory infection; K51.90 Ulcerative colitis, unspecified, without complications; N17.9 Acute kidney failure, unspecified; R04.2 Hemoptysis; E87.1 Hypo-osmolality and hyponatremia; E87.2 Acidosis; E87.6 Hypokalemia; E83.39 Other disorders of phosphorus metabolism; J98.01 Acute bronchospasm; I08.1 Rheumatic disorders of both mitral and tricuspid valves; I48.2 Chronic atrial fibrillation; I25.10 Atherosclerotic heart disease of native coronary artery without angina pectoris; E78.00 Pure hypercholesterolemia, unspecified; R31.21 Asymptomatic microscopic hematuria; R73.01 Impaired fasting glucose; G47.33 Obstructive sleep apnea (adult) (pediatric); D64.9 Anemia, unspecified; R60.0 Localized edema; R53.1 Weakness; R39.11 Hesitancy of micturition; Z95.1 Presence of aortocoronary bypass graft; Z95.0 Presence of cardiac pacemaker; Z79.01 Long term (current) use of anticoagulants
CPT/HCPCS: 36415; 36600; 71045; 71275; 76937; 80048; 80051; 80053; 80061; 80076; 80162; 80202; 81000; 82274; 82805; 82962; 83605; 83735; 83874; 83880; 84100; 84484; 85007; 85025; 85027; 85379; 85610; 85730; 86021; 86038; 86256; 87015; 87040; 87070; 87081; 87101; 87116; 87205; 87206; 87449; 87631; 87899; 88112; 88305; 88312; 89051; 93005; 93041; 93306; 94640; 94660; 94760; 96365

== ENCOUNTER 2018-09-11 08:49 | Inpatient (IN) | payer MEDICARE | END 2018-09-13 11:00 | disposition home or self-care (01) | LOC: 4TH 08:49 ==

== ENCOUNTER 2018-09-18 08:42 | Inpatient (IN) | payer MEDICARE ==
[~2018-09-18] VITALS: Ht 172.7 cm; Wt 93.9 kg
[~2018-09-18 08:42] MED LIST changes: +DILT300C52 PO; +LORA-714 PO; +MELA1TAB20 PO; +TAMS0.4C98 PO; +TRIAMCINOLONE TOP; +vit D
[2018-09-18] MEDS ORDERED: RT-ALBUTEROL SULF 2.5 MG/3 ML PRE-MIX VIAL ONE (09:44)
--- NOTE | 2018-09-18 12:01 | NUR ---
RESTING IN BED ET DENIES NEEDS THIS TIME.
--- NOTE | 2018-09-18 12:09 | ED General ---
General Chief Complaint: Respiratory Problems Stated Complaint: SOB SPITTING UP BLOOD Source of Information: Patient Exam Limitations: No Limitations History of Present Illness Date Seen by Provider: Sep 18, 2018 Time Seen by Provider: 08:50 Initial Comments Here with report of increasing shortness of air over the last 24 hours and now spitting of blood. Patient is on Eliquis for atrial fibrillation. He does have pacemaker. Recently hospitalized for 2 weeks secondary to left lower lobe pneumonia and hypoxia requiring extended stay. Not normally on oxygen requiring 3 L currently. Does have mild fever. Noted to be short of breath without chest pain. Does feel weak. Timing/Duration: 12-24 Hours Severity: Moderate, Severe Associated Systoms: No Chest Pain; Cough, Fever/Chills; No Nausea/Vomiting; Shortness of Air, Weakness Allergies and Home Medications Allergies Coded Allergies: Sulfa (Sulfonamide Antibiotics) (Verified Allergy, Unknown, 08/31/18) montelukast (Unverified Adverse Reaction, Unknown, 06/08/16) Hallucinations per pt Home Medications Apixaban 5 Mg Tablet, 5 MG PO BID restart on 09/13/18 Prescribed by: CODEY PARSONS on 09/09/18 0936 Aspirin 81 Mg Tablet.dr, 81 MG PO DAILY restart on 09/13/18 Prescribed by: CODEY PARSONS on 09/09/18 0936 Diltiazem HCl 300 Mg Cap.er.24h, 300 MG PO DAILY@0900 Prescribed by: CODEY PARSONS on 09/09/18 0936 Fluticasone Propionate 16 Gm [place].susp, 1 SPRAY NS BID PRN for ALLERGIES, (Reported) Furosemide 40 Mg Tablet, 40 MG PO DAILY, (Reported) Gluc HCl/Csa/[place] Hy/Hyalur AC 1 Each Capsule, 1 CAP PO 1800, (Reported) Ipratropium/Albuterol Sulfate 3 Ml Ampul.neb, 3 ML INH RTQ6HR scheduled 4times daily x 5days, every 2hours PRN short of air, after 5 days scheduled, use every 2hours PRN short of air Prescribed by: CODEY PARSONS on 04/16/17 0906 Lactobacillus Combination No.4 1 Each Capsule, 1 CAP PO BID, (Reported) Loperamide HCl 2 Mg Tablet, 1 MG PO BID, (Reported) TAKES 1/2 (2MG) TABLET Loratadine 10 Mg Tab.rapdis, 10 MG PO DAILY, (Reported) Losartan Potassium 25 Mg Tablet, 25 MG PO 1800, (Reported) Melatonin/Pyridoxine HCl (B6) 1 Each Tab.mphase, 1 EACH PO HS Prescribed by: CODEY PARSONS on 09/13/18 0919 Mesalamine 1.2 Gm Tablet.dr, 2.4 GM PO HS, (Reported) TAKES 2 (1.2GM) TABLETS AT BEDTIME WITH FOOD Metoprolol Tartrate 100 Mg Tablet, 100 MG PO BID, (Reported) Multivit-Min/FA/Lycopene/Lut 1 Each Tablet, 1 TAB PO HS, (Reported) Potassium Chloride 20 Meq Tab.er.prt, 20 MEQ PO DAILY, (Reported) Rosuvastatin Calcium 5 Mg Tablet, 2.5 MG PO 1800, (Reported) TAKES 1/2 (5MG) TABLET Tamsulosin HCl 0.4 Mg Cap, 0.4 MG PO DAILY@1800 Prescribed by: CODEY PARSONS on 09/09/18 0936 [vit D] , 5,000 DAILY, (Reported) Patient Home Medication List Home Medication List Reviewed: Yes Review of Systems Review of Systems Constitutional: see HPI; No chills; fever, weakness EENTM: no symptoms reported Respiratory: see HPI, cough, short of breath, wheezing Cardiovascular: No chest pain, No edema; Hx of Intervention Gastrointestinal: No abdominal pain, No nausea, No vomiting Genitourinary: no symptoms reported Musculoskeletal: No back pain, No muscle pain Skin: no symptoms reported Psychiatric/Neurological: No Symptoms Reported Hematologic/Lymphatic: No Symptoms Reported All Other Systems Reviewed Negative Unless Noted: Yes Past Hkimcfz-Btvifl-Ioisjh Hx Past Med/Social Hx: Reviewed Nursing Past Med/Soc Hx Patient Social History Alcohol Use: Denies Use Recreational Drug Use: No Smoking Status: Former Smoker Type Used: Cigarettes Former Smoker, Quit: Dec 08, 1991 Recent Foreign Travel: No Contact w/Someone Who Travel: No Recent Hopitalizations: No Immunizations Up To Date Date of Pneumonia Vaccine: August 05, 2018 Date of Influenza Vaccine: Jan 08, 2017 Seasonal Allergies Seasonal Allergies: Yes Past Medical History Surgeries: Yes (5 VESSEL CABG, PACEMAKER X2, STENTS X2, skin ca removal) Cardiac, CABG, Coronary Stent, Gallbladder, Pacemaker Respiratory: Yes (BI-PAP) Sleep Apnea, COPD Currently Using CPAP: No Currently Using BIPAP: Yes Cardiac: Yes (PACER, STENTS, BYPASS) Atrial Fibrillation, Coronary Artery Disease, High Cholesterol, Hypertension Neurological: No Reproductive Disorders: No Sexually Transmitted Disease: No HIV/AIDS: No Genitourinary: No Gastrointestinal: Yes (ULCERATIVE COLITIS) Colitis, Chronic Diarrhea, Polyps Musculoskeletal: No Endocrine: No HEENT: No Loss of Vision: Denies Hearing Impairment: Denies Cancer: Yes (SKIN CANCER) Skin, Melanoma Psychosocial: No Integumentary: Yes (melanoma) Blood Disorders: No Adverse Reaction/Blood Tranf: No (N/A) Family Medical History Reviewed Nursing Family Hx Arthritis Cardiovascular disease Kidney disease G8 BROTHER Leukemia G8 BROTHER Multiple myeloma Prostate cancer 19 FATHER Heart Disease, Hypertension Physical Exam-Suspected Sepsis Physical Exam Vital Signs Vital Signs - First Documented 09/18/18 08:48 Temp 99.4 Pulse 68 Resp 16 B/P (MAP) 142/77 (98) Pulse Ox 76 O2 Delivery Room Air O2 Flow Rate 4.00 Capillary Refill : Height, Weight, BMI Height: 5'8.00" Weight: 210lbs. 3.0oz. 95.250028hr; 30.2 BMI Method:Stated General Appearance: WD/WN, Mild Distress HEENT: PERRL/EOMI, Pharynx Normal Neck: Normal Inspection, Non Tender, Supple Respiratory: No Respiratory Distress, Decreased Breath Sounds, Wheezing Cardiovascular: Regular Rate, Rhythm, No Murmur Gastrointestinal: Non Tender, Soft Back: Normal Inspection, No CVA Tenderness, No Vertebral Tenderness Extremity: Normal Range of Motion, Non Tender Neurologic/Psychiatric: Alert, Oriented x3 Skin: normal color, warm/dry Focused Exam Lactate Level 09/18/18 08:55: Progress/Results/Core Measures Suspected Sepsis SIRS Temperature: Pulse: Respiratory Rate: Laboratory Tests 09/18/18 08:55: Blood Pressure / Mean: 09/18/18 08:55: Laboratory Tests 09/18/18 08:55: Results/Orders Lab Results Laboratory Tests Test 09/18/18 08:55 Range/Units My Orders Orders - SANDEEP WALKER MD Ct Angio Chest W (09/18/18 11:46) Iohexol Injection (Omnipaque 350 Mg/Ml 1 (09/18/18 12:15) Received Contrast (Hold Metformin- Contr (09/18/18 12:15) Ns (Ivpb) (Sodium Chloride 0.9% Ivpb Bag (09/18/18 12:15) Chest 1 View, Ap/Pa Only (09/18/18 ) Albuterol/Ipra Inhalation Soln (Duoneb I (09/18/18 12:15) Svn Small Volume Nebulizer (09/18/18 12:14) O2 (09/18/18 12:14) Ed Iv/Invasive Line Start (09/18/18 12:15) Piperacillin Sodium/Tazobactam (Zosyn Vi (09/18/18 13:15) Methylprednisolone Sod Succ (Solu-Medrol (09/18/18 13:14) Albuterol Pre-Mix Nebs (Rt) (Proventil (09/18/18 09:44) Cbc No Diff (09/18/18 08:55) Comprehensive Metabolic Panel (09/18/18 08:55) BNP (09/18/18 08:55) Fibrin Degradation Products (09/18/18 08:55) Protime With Inr (09/18/18 08:55) Para Thryoid Hormone Intact (09/18/18 08:55) Urinalysis (09/18/18 08:55) Lactic Acid Analyzer (09/18/18 08:55) Blood Culture (09/18/18 08:55) Blood Culture (09/18/18 08:55) Sputum Culture (09/18/18 09:32) Vital Signs/I&O 09/18/18 09/18/18 08:48 08:48 Temp 99.4 Pulse 68 Resp 16 B/P (MAP) 142/77 (98) Pulse Ox 76 O2 Delivery Room Air Nasal Cannula O2 Flow Rate 4.00 Capillary Refill : Progress Note : Progress Note Seen and evaluated. IV, labs, UA, chest x-ray, blood cultures and lactic acid ordered. Patient placed on oxygen at 3 L via nasal cannula to due to hypoxia and O2 sat came up to 91%. Duo neb ordered and given. 02 saturation declined to 88% on 3 L and repeat nebulizers with albuterol 3 ordered. Patient placed on oxygen mask and did have improvement of oxygen saturations to 97%. D-dimer is elevated so CT angiogram of the chest was ordered. Normal saline 1 L bolus ordered. Lactic acid noted to have increased from 2.28-2.68. This is likely related to his initial presentation significant hypoxia and I would suspect that that's going to improve with fluids and the oxygenation now. Monitor patient. 1310: CT does show bilateral pneumonia is definitely worse than previous. Given his lactic acid in fever, we will treat for pneumonia. He was in the hospital for 2 weeks will require hospital acquired pneumonia protocol. MRSA was negative previously so we will just use Zosyn. Zosyn 4.5 g IV ordered. Solu-Medrol 125 mg IV ordered. Case was discussed with Dr. Parsons who accepts patient for admission, inpatient status. I did discuss the case with Dr. Mijares at 1327 he accepts patient for consult. Findings concerns discussed the patient and family who agree with plan. Diagnostic Imaging Diagonstic Imaging: Xray Plain Films/CT/US/NM/MRI: chest Comments [facility] [place] [place] NAME: ITS Compliance REC#: [id number] PT STATUS: REG ER : 1940 PHYSICIAN: SANDEEP WALKER MD ADMIT DATE: 09/18/18/ER Draft Date of Exam:09/18/18 CHEST 1 VIEW, AP/PA ONLY INDICATION: Shortness of breath. Frontal chest obtained at 10:33 a.m. and compared 09/12/2018. FINDINGS: There is poststernotomy change with cardiomegaly. There is no change in the pacemaker device. There is worsening central vascular congestion with diffuse interstitial edema compatible with CHF. There is superimposed alveolar infiltrate which may represent alveolar edema versus pneumonia. Correlate with clinical findings. There is no pneumothorax or pleural fluid. IMPRESSION: Cardiomegaly, central vascular congestion with interstitial edema. There are perihilar alveolar infiltrates which may represent alveolar edema or pneumonia. Correlate with clinical findings. Dictated on workstation # [id number] Dict: 09/18/18 1235 Trans: 09/18/18 1306 [id number] Interpreted by: TREE PAZ MD Electronically signed by: Reviewed: Reviewed by Me Diagonstic Imaging: CT Plain Films/CT/US/NM/MRI: chest Comments [facility] [place], [place] NAME: ITS Compliance REC#: [id number] PT STATUS: REG ER : 1940 PHYSICIAN: SANDEEP WALKER MD ADMIT DATE: 09/18/18/ER Draft Date of Exam:09/18/18 CT ANGIO CHEST W PROCEDURE: CT angiography of the chest with contrast. TECHNIQUE: Multiple contiguous axial images were obtained through the chest after uneventful bolus administration of intravenous contrast. 2D reconstructed CTA MIP acquisitions were also performed. Auto Exposure Controls were utilized during the CT exam to meet ALARA standards for radiation dose reduction. INDICATION: Hemoptysis, shortness of air, recent hospitalization for pneumonia. COMPARISON: Exam compared to 08/31/2018. FINDINGS: There are no intraluminal pulmonary arterial filling defects. There is no pulmonary arterial embolus. While there are chronic changes of centrilobular emphysema and chronic lung disease present, acute infiltrates bilaterally most notably in the upper lobes, have progressed. No evidence for abscess or empyema. Minute amount of pleural fluid is in the posterior sulci, nonloculated. No pneumothorax. There are coronary and aortic nonaneurysmal calcifications on an atherosclerotic basis. IMPRESSION: 1. Small pleural effusions without loculation. Increased bilateral infiltrates, suspect for pneumonia. Negative for PE or acute aortic disease. 2. Not mentioned above, low-density nodule in the right adrenal gland is stable; favoring adenoma. Dictated on workstation # [id number] Dict: 09/18/18 1252 Trans: 09/18/18 1258 [id number] Interpreted by: NAVARRO LONDON Electronically signed by: Reviewed: Reviewed by Ri Departure Communication (Admissions) Time/Spoke to Admitting Phy: 13:10 Time/Spoke to Consulting Phy: 13:27 Impression Primary Impression: Bilateral pneumonia Qualified Codes: J18.1 - Lobar pneumonia, unspecified organism Additional Impressions: COPD with acute exacerbation Hypoxia Disposition: ADMITTED INPATIENT Condition: Stable Admissions Decision to Admit Reason: Admit from ER (General) Decision to Admit/Date: Sep 18, 2018 Time/Decision to Admit Time: 13:10 Departure-Patient Inst. Referrals: CODEY PARSONS MD (PCP/Family) Primary Care Physician SANDEEP WALKER MD Sep 18, 2018 12:09
[2018-09-18] MEDS ORDERED: IOHEXOL 350 MG/ML 100 ML (OMNIPAQUE 350) VIAL IV ONE (12:15)
[2018-09-18] MEDS ORDERED: RT-ALBUTEROL/IPRATROPIUM 3 ML (DUONEB) VIAL INH ONE (12:15)
[2018-09-18] MEDS ORDERED: HOLD METFORMIN - RECEIVED CONTRAST 20 ML VIAL IV SCH (12:15)
--- OUTSIDE RECORDS SUMMARY | 2018-09-18 12:54 | XMS REPORT | Clinical Summary ---
Author Author [facility] Organization [facility] Address Unknown Phone Unavailable Care Team Providers Care Principal Automation Engineer Name Role Phone Steffany Parsons MD PCP Source Comments Some departments are not documenting in the electronic medical record. If you d o not see the information that you expected, contact Release of Information in [facility] [place] Information Management department at [phone] for further assistan ce in locating additional records.[facility] Allergies Not on File Medications End Date Status Medication Sig Dispensed Refills Start Date Active rosuvastatin (CRESTOR) 5 Take 0.5 mg 0 mg tabletIndications: by mouth Paroxysmal atrial daily. fibrillation (HCC), Coronary artery disease involving coronary bypass graft of [place] heart with angina pectoris (HCC) Active digoxin (LANOXIN) 250 mcg Take 0.25 mcg 0 tabletIndications: by mouth Paroxysmal atrial daily. fibrillation (HCC), Coronary artery disease involving coronary bypass graft of [place] heart with angina pectoris (HCC) Active POTASSIUM CHLORIDE Take 20 mEq 0 (KLOR-CON M20 by mouth PO)Indications: daily. Paroxysmal atrial fibrillation (HCC), Coronary artery disease involving coronary bypass graft of [place] heart with angina pectoris (HCC) Active FUROSEMIDE (LASIX Take 40 mg by 0 PO)Indications: mouth daily. Paroxysmal atrial fibrillation (HCC), Coronary artery disease involving coronary bypass graft of [place] heart with angina pectoris (HCC) Active losartan (COZAAR) 25 mg Take 25 mg by 0 tabletIndications: mouth daily. Paroxysmal atrial fibrillation (HCC), Coronary artery disease involving coronary bypass graft of [place] heart with angina pectoris (HCC) Active dabigatran (PRADAXA) 150 Take 150 mg 0 mg capsuleIndications: by mouth Paroxysmal atrial twice daily. fibrillation (HCC), Coronary artery disease involving coronary bypass graft of [place] heart with angina pectoris (HCC) Active ASPIRIN POIndications: Take 81 mg by 0 Paroxysmal atrial mouth daily. fibrillation (HCC), Coronary artery disease involving coronary bypass graft of [place] heart with angina pectoris (HCC) Active MULTIVITAMINS WITH Take by 0 FLUORIDE (MULTI-VITAMIN mouth daily. PO)Indications: Paroxysmal atrial fibrillation (HCC), Coronary artery disease involving coronary bypass graft of [place] heart with angina pectoris (HCC) Active glucosamine(+) 500 mg Take 500 mg 0 tabIndications: by mouth Paroxysmal atrial once. fibrillation (HCC), Coronary artery disease involving coronary bypass graft of [place] heart with angina pectoris (HCC) Active LOPERAMIDE HCL (IMODIUM Take by 0 PO)Indications: mouth. Half Paroxysmal atrial tablet twice fibrillation (HCC), a day Coronary artery disease involving coronary bypass graft of [place] heart with angina pectoris (HCC) Active diltiazem CD (CARDIZEM Take 360 mg 0 CD) 180 mg by mouth capsuleIndications: daily. Paroxysmal atrial fibrillation (HCC), Coronary artery disease involving coronary bypass graft of [place] heart with angina pectoris (HCC) Active metoprolol (LOPRESSOR) Take 100 mg 0 100 mg tabletIndications: by mouth Paroxysmal atrial twice daily. fibrillation (HCC), Coronary artery disease involving coronary bypass graft of [place] heart with angina pectoris (HCC) Active Problems Problem Noted Date CHF (congestive heart failure) 03/15/2015 Overview: 03/30/08: CABG x5: EF 45-50%. 12/30/13: LHC: EF 45-50%. No PCI. Severe [place] CAD. 03/22/15: LHC: Severe multivessel atherosclerotic CAD. Normal LV size. Mild LV dysfunction EF 45%. No evidence of HF at rest. Previously stented proximal and middle LAD, widely patent, with no in-stent restenosis. Coronary artery disease involving coronary bypass graft of [place] heart 03/15/2015 with angina pectoris HTN (hypertension) [...] travel history available. Last Filed Vital Signs Reading Time Taken Comments Vital Sign 110/78 03/15/2015 3:03 PM LAYER OFF Blood Pressure 94 03/15/2015 3:03 PM LAYER OFF Pulse - - Temperature - - Respiratory Rate - - Oxygen Saturation - - Inhaled Oxygen Concentration 88.9 kg (196 lb) 03/15/2015 3:03 PM LAYER OFF Weight 171.5 cm (5' 7.5") 03/15/2015 3:03 PM LAYER OFF Height 30.24 03/15/2015 3:03 PM LAYER OFF Body Mass Index Plan of Treatment Health Maintenance Due Date [...] MEDICARE resent REPLACEMEN T Advance Directives Patient Swatch Checker Explanation Type Date Recorded Advance 03/12/2015 10:28 AM Directive/DPOA
--- OUTSIDE RECORDS SUMMARY | 2018-09-18 12:55 | XMS REPORT | Encounter Summary ---
Author Author [facility] Organization [facility] Address Unknown Phone Unavailable Care Team Providers Care Roll Up Helper Name Role Phone Steffany Parsons MD PCP Encounter Details Care Team Description Date Type Department Ivan Veloz MD [address] [address] [phone] 03/15/2015 [facility] [address] [address] Social History Date Tobacco Use Types Packs/Day Years Used Never Assessed Sex Assigned at Date Recorded Not on file Industry Job Start Date Occupation Not on file Not on file Not on file Travel End Travel History Travel Start No recent travel history available. documented as of this encounter Medications at Time of Discharge Start Date End Date Medication Sig Dispensed Refills ASPIRIN POIndications: Take 81 mg by 0 Paroxysmal atrial mouth daily. 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 OTHER OUTSIDE Events LAB # High AT/AF OTHER OUTSIDE Evts LAB # High V Events 0 OTHER OUTSIDE LAB Time in AT/AF OTHER OUTSIDE LAB V Rate in AT/AF OTHER OUTSIDE LAB Single PVSc OTHER OUTSIDE LAB PVC runs OTHER OUTSIDE LAB Battery Voltage 2.78 OTHER OUTSIDE LAB Estimated 4.5 years (3.5-6 years) OTHER OUTSIDE Longevity LAB Magent Rate OTHER OUTSIDE LAB A Sense mv OTHER OUTSIDE LAB A Lead ohms OTHER OUTSIDE LAB A Capture V OTHER OUTSIDE LAB A Capture ms OTHER OUTSIDE LAB Ao Voltage OTHER OUTSIDE LAB AO Pulse Width OTHER OUTSIDE LAB RV Sense mv PARTS IDENTIFICATION TECHNICIAN OTHER OUTSIDE LAB RV Lead ohms 478 OTHER OUTSIDE LAB RV Capture V 1.0 OTHER OUTSIDE LAB RV Capture ms 1.0 OTHER OUTSIDE LAB RV Voltage 2.5 OTHER OUTSIDE LAB RV Pulse Width 1.0 OTHER OUTSIDE LAB LV Sense mv OTHER OUTSIDE LAB LV Lead ohms OTHER OUTSIDE LAB EP LV Capture V OTHER OUTSIDE LAB LV Capture ms OTHER OUTSIDE LAB LV Voltage OTHER OUTSIDE LAB LV Pulse Width OTHER OUTSIDE LAB V-V Timing OTHER OUTSIDE LAB Counters Clrd Yes OTHER OUTSIDE LAB Saved to Disc No OTHER OUTSIDE LAB Date of Last 03/15/15 OTHER OUTSIDE Programming LAB Next 09/2015 OTHER OUTSIDE Programming LAB Check Due Date of Last OTHER OUTSIDE Interrogation LAB Device OTHER OUTSIDE Reprogram LAB Comments Initial Rhythm PARTS IDENTIFICATION TECHNICIAN 90's OTHER OUTSIDE LAB Underlying PARTS IDENTIFICATION TECHNICIAN @ VVI 30 bpm OTHER OUTSIDE Rhythm LAB Device Mode VVIR OTHER OUTSIDE LAB Lower Rate 60 OTHER OUTSIDE Limit LAB Upper Rate 120 OTHER OUTSIDE Limit LAB Sensor Rate 120 OTHER OUTSIDE Limit LAB Pace AV Delay OTHER OUTSIDE LAB Sense AV Delay OTHER OUTSIDE LAB Mode Switch 180 OTHER OUTSIDE (bpm) LAB High A Rate OTHER OUTSIDE Detect LAB High V Rate 5 beats OTHER OUTSIDE Detect LAB -VS% PARTS IDENTIFICATION TECHNICIAN 100% OTHER OUTSIDE LAB -PARTS IDENTIFICATION TECHNICIAN% OTHER OUTSIDE LAB -VS% OTHER OUTSIDE LAB AP-PARTS IDENTIFICATION TECHNICIAN% OTHER OUTSIDE LAB Initial Rhythm V-paced OTHER OUTSIDE LAB Device Function Yes OTHER OUTSIDE WNL LAB Device Yes OTHER OUTSIDE Reprogram LAB Mode Switch On OTHER OUTSIDE Status LAB Programming? Yes OTHER OUTSIDE LAB Interrogation? Yes OTHER OUTSIDE LAB Device Check by OTHER OUTSIDE Rep LAB Date of Last OTHER OUTSIDE Remote Check LAB Next Remote OTHER OUTSIDE Check Due LAB Enrollment Date OTHER OUTSIDE LAB Date of OTHER OUTSIDE baseline remote LAB transmission AT/AF Daily OTHER OUTSIDE [place] Hours LAB Average Vent OTHER OUTSIDE Rate during LAB AT/AF #BPM Average Vent OTHER OUTSIDE Rate During LAB AT/AF #Hours Remote Yes OTHER OUTSIDE Monitoring? LAB Wireless No OTHER OUTSIDE Generator LAB Daily [place] OTHER OUTSIDE [place] Alert? LAB Average OTHER OUTSIDE Venticular Rate LAB AT/AF On/Off VF OTHER OUTSIDE Detection/Thera LAB py Off Remote Check? OTHER OUTSIDE LAB Date of Last OTHER OUTSIDE ICM Evaluation LAB Next ICM Check OTHER OUTSIDE Due LAB Activity OTHER OUTSIDE LAB HRV (range ms) OTHER OUTSIDE LAB FL IND RANGE OTHER OUTSIDE (Last Fluid LAB Index Range) FL IND OTHER OUTSIDE TODAY(Today LAB Fluid Index Value) THOR IMP OTHER OUTSIDE RANGE(Last LAB Optivol Thoracic Impedence Range) THOR IMP OTHER OUTSIDE TODAY(Today's LAB Optivol Thoracic Impedence Value) HF Patient No OTHER OUTSIDE LAB ICM Evaluation OTHER OUTSIDE LAB Thoracic OTHER OUTSIDE Impedance LAB Evaluated? Device OTHER OUTSIDE Implanted By LAB EP Device OTHER OUTSIDE Followed by LAB Name Advisory Info OTHER OUTSIDE LAB Advisory Info 2 OTHER OUTSIDE LAB Permanent OTHER OUTSIDE Comments LAB Permanent OTHER OUTSIDE Comments 2 LAB Permanent OTHER OUTSIDE Comments 3 LAB Permanent OTHER OUTSIDE Comments 4 LAB Permanent OTHER OUTSIDE Comments 5 LAB Permanent OTHER OUTSIDE Comments 6 LAB Permanent OTHER OUTSIDE Comments 7 LAB Research OTHER OUTSIDE Comments LAB Research OTHER OUTSIDE Comments 2 LAB Phone Check OTHER OUTSIDE Next Due LAB DIMITRIOS/EOL per metal numerical tool programmer. OTHER OUTSIDE Indicator LAB Generator Medtronic OTHER OUTSIDE Director Of Pulmonary Unit LAB Generator OTHER OUTSIDE Director Of Pulmonary Unit LAB Other Generator Model Sensia [id number] OTHER OUTSIDE # LAB Generator [id number] OTHER OUTSIDE Serial # LAB Generator 12/18/11 OTHER OUTSIDE Implnat Date LAB Atrial Lead Medtronic OTHER OUTSIDE Director Of Pulmonary Unit LAB Atrial Lead OTHER OUTSIDE Director Of Pulmonary Unit LAB Other Atrial Lead 556,853 OTHER OUTSIDE Model # LAB Atrial Lead [id number] OTHER OUTSIDE Serial # LAB Atrial Lead 08/31/2006 OTHER OUTSIDE Implant Date LAB RV Lead Medtronic OTHER OUTSIDE Director Of Pulmonary Unit LAB RV Lead OTHER OUTSIDE Director Of Pulmonary Unit LAB Other RV Lead Model # 507,658 OTHER OUTSIDE LAB RV Lead Serial [id number] OTHER OUTSIDE # LAB RV Lead Implant 08/31/2006 OTHER OUTSIDE Date LAB LV Lead OTHER OUTSIDE Director Of Pulmonary Unit LAB LV Lead OTHER OUTSIDE Director Of Pulmonary Unit LAB Other LV Lead Model # OTHER OUTSIDE LAB LV Lead Serial OTHER OUTSIDE # LAB LV Lead Implant OTHER OUTSIDE Date LAB Other Implant OTHER OUTSIDE Info LAB Pacemaker Yes OTHER OUTSIDE Dependant LAB Generator No OTHER OUTSIDE Investigational LAB Atrial Lead No OTHER OUTSIDE Investigational LAB RV Lead No OTHER OUTSIDE Investigational LAB LV Lead OTHER OUTSIDE Investigational LAB Device Type VVI-PM OTHER OUTSIDE LAB EP Device OTHER OUTSIDE Followed By LAB Specimen Narrative Performed At OTHER OUTSIDE LAB [03/15/2015 4:43:23 PM - [facility]] Single chamber pacemaker programming.Device function appears normal. Pt presented in Aflutter when hooked to surface with gain increased. PacedVrates > 100 bpm estimated 40% of the time. No underlying rhythm noted today. Ventricular:None Changes made to programming: Lower rate from 70 to 60 bpm Upper Sensor Rate 130 to 120 ADL Rate from 120 to 95 ADL Response from5 to 2 Exertional Response from 5 to 2 See HRM data sheet for additional parameters. Pt followed by cardiology group in [facility]. Programming reviewed by MPE in clinic; adjustments ordered by MPE. Will continue to monitor. Performing Organization Address City/State/Zipcode Phone Number OTHER OUTSIDE LAB documented in this encounter Visit Diagnoses Diagnosis Paroxysmal atrial fibrillation (HCC) Atrial fibrillation documented in this encounter
--- OUTSIDE RECORDS SUMMARY | 2018-09-18 12:55 | XMS REPORT | Encounter Summary ---
Author Author [facility] Organization [facility] Address Unknown Phone Unavailable Care Team Providers Care Tool Room Supervisor Name Role Phone Steffany Parsons MD PCP Reason for Visit * Reason Comments New Patient Afib and possible ablation. Encounter Details Care Team Description Date Type Department Ivan Veloz MD [address] [id number] New Patient (Afib and possible ablation.) 03/15/2015 Office Visit [facility] [address] [id number] Social History Date Tobacco Use Types Packs/Day Years Used Never Assessed Sex Assigned at Date Recorded Not on file Industry Job Start Date Occupation Not on file Not on file Not on file Travel End Travel History Travel Start No recent travel history available. documented as of this encounter Last Filed Vital Signs Reading Time Taken Comments Vital Sign 110/78 03/15/2015 3:03 PM INSTRUMENT ASSEMBLY SUPERVISOR Blood Pressure 94 03/15/2015 3:03 PM INSTRUMENT ASSEMBLY SUPERVISOR Pulse - - Temperature - - Respiratory Rate - - Oxygen Saturation - - Inhaled Oxygen Concentration 88.9 kg (196 lb) 03/15/2015 3:03 PM INSTRUMENT ASSEMBLY SUPERVISOR Weight 171.5 cm (5' 7.5") 03/15/2015 3:03 PM INSTRUMENT ASSEMBLY SUPERVISOR Height 30.24 03/15/2015 3:03 PM INSTRUMENT ASSEMBLY SUPERVISOR Body Mass Index documented in this encounter Patient Instructions * Patient Instructions* Benito Contreras RN - 03/15/2015 5:15 PM INSTRUMENT ASSEMBLY SUPERVISOR 1. Follow up with Dr. Veloz in 1 month. RUMENT ASSEMBLY SUPERVISOR documented in this encounter Progress Notes * Ivan Veloz MD - 03/15/2015 3:20 PM INSTRUMENT ASSEMBLY SUPERVISOR Date of Service: 03/15/2015 Vishnu Jaimes is a 74 y.o. male. HPI I had the pleasure of seeing your patient Vishnu Jaimes for initial Electrophysi olgy Consultation in the [facility] as a part of the [facility] office today regarding his Atrial Arrhythmias and R apid HRs . He is typically followed and was referred by my friend and colleague, Dr. Avila his primary tar distillation supervisor, in [place], [place]. Mr. Jaimes is an exceptionally pleasant 74 y.o. male, who is accompanied by his equally pleasant spouse, gives excellent records of his past medical history, et c. His PMHx briefly includes: Chronic persistent/permanent atrial flutter, Medtron ic DDDR later changed to VVIR permanent pacemaker December 2011 at the time of generator change with capped atrial lead, stroke prophylaxis with Pradaxa, chron ic diastolic heart failure, mildly decreased LV function reportedly in the 45% t o 50% range, CAD status post CABG in March 2008 as well as December 2013 suc cessful GAURI times 2, one to the proximal and one to the mid-vessel LAD, hyperten noel, hyperlipidemia, PACEMAKER DEPENDENT (reportedly intermittent, although I s uspect permanently), reported impaired fasting glucose and obesity. Apparently in August 2006, Mr. Jaimes underwent permanent pacemaker implantation f or what I anticipate was possibly complete heart block , or at least intermitten t complete heart block at that time. Then March 30, 2008, he underwent a CAB G, and, apparently, postoperatively, his RA lead had high pacing thresholds. Ho wever, he remained programed DDDR. October 24, 2011, he presented with increasing shortness of breath and was noted to be in persistent atrial flutter. He was seen by Dr. Baires in [place]. At that time, he was reportedly initiated on Pradaxa. Also per their records, on October [id number], he was initiated on sotalol. No cardioversion, however, was pursued. December 2011, follow-up with Dr. Avila with persistent AFL still present. So talol discontinued in favor of metoprolol and atrial flutter accepted as permane nt. December 18, 2011, patient's pacemaker was at [facility]. Given his permanent AFL at that time, his atrial lead was capped, and a Medtronic VVIR generator was frieda montesinos. Obviously, his AFL was ACCEPTED PERMANENT, December 2011. December 2013, Mr. Jaimes underwent cardiac catheterization, at which time he u nderwent 2 stents placed in his LAD. A saphenous vein graft to the 2nd diagonal branch was patent. The saphenous vein graft to the 1st OM and the terminal OM was also widely patent. An SVG to the distal RCA was widely patent. The AGUILAR g raft was chronically occluded. Apparently, Mr. Jaimes was clinically doing relatively well until late summer. He noted that he was getting some dyspnea on exertion. In particular, he noted also if he climbed a flight of stairs he was short of breath. He communicated t his to the pacemaker nurse who was checking his pacemaker from [facility] in [facility]. At that time, per his description, she told him that she would increase the responsiveness of the pacemaker to as high as she was able/comfortable. Over the ensuing 2-3 months, he has had increasing dyspnea on exertion, fatigue, and symptoms of palpitations with nearly any activity. He states just moving a round his home, he will feel his heart rate being very rapid. Given these symptoms and documented higher heart rates noted on his pacemaker in [facility], his AV node suppressing medical therapy was optimized. He is on di goxin 0.25 mcg daily, diltiazem 360 mg daily and metoprolol 100 mg b.i.d. Dionisioi te that, he still apparently had increasing heart rates and therefore was referr ed for further EP consultation. ECG today documents his persistent atrial flutter with 100% ventricular pacing a t a ventricular rate of 94 bpm. Pacemaker interrogation of his Medtronic VVIR permanent pacemaker demonstrates a rise in September/October in his RV pacing threshold from the 1.3 V at 0.4 msec range up to approximately 2 V at 0.4 msec range and has remained stable over the last 2 months. His pacing lead impedance has remained stable. No R waves were able to be measured today, and his device reports that he is greater than 80% paced. He is programmed to a lower rate limit of 70 and upper sensor rate of 130 bpm. His heart rate histogram demonstrates rates ranging from 70 to up to 130 with nearly all of these beats paced with less than 10% of the beats not paced. In f act, he is reportedly 100% ventricular paced per the device will less than 0.1% sensed. Also of note, his underlying rhythm appears to be his persistent atrial flutter with complete heart block and no significant ventricular rhythm above 30 bpm. H e has no intrinsic conduction and no escape rhythm. I turned his device down to 30 bpm, and, in fact, he has very clear and distinct flutter waves that appear to be negative in lead V1 and V2 and likely positive in the inferior leads with a flutter cycle length around 280 msec. During pacemaker interrogation, it was noted that with minimal activity or movem ent on the exam table, his heart rate would increase secondary to his rate respo nsiveness. ASSESSMENT AND PLAN 1. Chronic persistent/permanent atrial flutter: His atrial flutter appears to b e possibly isthmus dependent, although it is not definitive based on his ECG. I t clearly has a slower flutter cycle length. It has been accepted, as noted, as permanent. However, I have recommended that he undergo echocardiogram to assess his LA dimension. His LA size is less than 5 cm. It may be a reasonable cons ideration to pursue a right-sided isthmus dependent flutter ablation. If, howev er, he has atypical AFL, I would not go to the left side unless his LA dimension measured completely normal. If that were the case, then I would consider a more complex ablation. However, I have a lower suspicion that his symptoms of dysp larissa on exertion are related to his permanent AFL that has been persistent since 2011 with more recent symptoms. 2. Dyspnea on exertion: etiology unclear. It is certainly possible that his mor e rapid pacing rates contributed to his symptoms. However, it seems as though h is symptoms were present before his pacemaker was programmed to a more aggressiv e rate responsive mode. At this time, I have recommended a repeat echocardiogra m. If he has significant LV dysfunction, then it certainly could be related to 100% chronic ventricular pacing, at which point I would consider upgrading his d evice to a RIP MACHINE OPERATOR-D. If, however, his EF is normal, then there would be no indicat ion to do that. I would pursue further evaluation for his PACK. 3. Tachypalpitations and increased heart rates: Almost certainly related to a ' too aggressive,' most certainly related to 'too aggressive' rate responsive prog ramming of his pacemaker. I have adjusted his ADL to 95. I have decreased his rate responsive curve dramatically. I have also decreased his maximum sensor ra te to 120 bpm. Of note, Mr. Awad stated that when his heart rate on a treadmil l or in rehab, or when exercising is being monitored, it seems to get up to 130 bpm. I have not seen any evidence of his atrial flutter conducting rapidly. Hi s underlying rhythm is complete heart block with no significant conduction or es cape rhythm. Therefore, at this point, I do feel he has adequate ventricular ra te control. Hopefully, these programming changes will improve his symptoms of t achypalpitations. 4. Complete heart block/pacemaker dependent: As above. 5. Abandoned RA lead with prior high RA pacing thresholds: If there is any cons ideration of restoring sinus rhythm in the future, his device would need to be c onverted back to a functioning dual-chamber system since he would likely have co mplete heart block. 6. Hypertension: His blood pressure is under good control. ([id number]) I spent well over an hour obtaining a history and physical. I spent an addition al hour discussing atrial flutter, his pacing ventricular responsiveness, possib le AFL and RFA in the future, his programming changes that we made today, etc. As noted, I have recommended an echocardiogram. and Mrs. Jaimes verbalized good understanding of all the above discussion an d plan. I have scheduled tentative followup in approximately 1 month. As always, I appreciate the opportunity to participate in the care of your patie nt. ([id number]) Mr. Jaimes was educated regarding plan of care. He was instructed to call our of fice with any questions or concerns, as well as to notify us of any new or worse praful symptoms. He verbalized understanding. I appreciate the opportunity to participate in the care of your patient. Please do not hesitate to contact me directly if you have any questions or furth er insights into his care. I have scheduled his follow-up with me in 1-2 month( s) at our OP office. Filed Vitals: 03/15/15 1503 BP: 110/78 Pulse: 94 Height: 1.715 m (5' 7.5") Weight: 88.905 kg (196 lb) Body mass index is 30.23 kg/(m^2). Past Medical History Patient Active Problem List Diagnosis Date Noted CHF (congestive heart failure) 03/15/2015 03/30/08: CABG x5: EF 45-50%. 12/30/13: LHC: EF 45-50%. No PCI. Severe [place] CAD. Coronary artery disease involving coronary bypass graft of [place] heart with angina pectoris 03/15/2015 HTN (hypertension) 03/15/2015 Hyperlipidemia 03/15/2015 Obesity 03/15/2015 Paroxysmal atrial fibrillation 03/12/2015 Review of Systems Constitution: Positive for weakness and malaise/fatigue. HENT: Positive for nosebleeds and stridor. Eyes: Negative. Cardiovascular: Positive for dyspnea on exertion, irregular heartbeat, near-sync ope, orthopnea and paroxysmal nocturnal dyspnea. Respiratory: Positive for cough, shortness of breath, sleep disturbances due to breathing and sputum production. Endocrine: Positive for cold intolerance. Hematologic/Lymphatic: Bruises/bleeds easily. Skin: Negative. Musculoskeletal: Negative. Gastrointestinal: Positive for constipation, diarrhea and heartburn. Genitourinary: Positive for decreased libido. Neurological: Positive for excessive daytime sleepiness. Psychiatric/Behavioral: The patient has insomnia. Allergic/Immunologic: Negative. Physical Exam Constitutional: He is in no acute distress, resting comfortably. Skin/Integument: Warm and dry Neuro: Patient is alert and oriented to person, place, and time. HEENT: Head is Normocephalic, PERRL, sclera are non-icteric and no xanthelasmas noted. Mouth/Throat shows the Oropharynx is clear and moist. Neck: without obvious palpable thyromegally or thyroid bruit Respiratory-Pulmonary/Chest: Effort normal and breath sounds normal. No respira tory distress. Clear to auscultation bilaterally with no rales, rhonchi, or whee zes. Cardiovascular: No evidence of increased jugular venous pressure, carotids are 2+ /4+ equal bilaterally, without obvious bruit. Regular rhythm, S1, S2. I do n ot appreciate any significant murmur today. No heaves, thrills, rubs. PMI is no t palpated GI: obese, soft and non-tender Extremities: With trace pretibial and pedal pitting peripheral edema. Distal p ulses are intact. Device: is in the left infraclavicular region and well healed. Problems Addressed Today Encounter Diagnoses Name Primary? Paroxysmal atrial fibrillation Yes Coronary artery disease involving coronary bypass graft of [place] heart with angina pectoris Current Medications (including today's revisions) ASPIRIN PO Take 81 mg by mouth daily. dabigatran (PRADAXA) 150 mg capsule Take 150 mg by mouth twice daily. digoxin (LANOXIN) 250 mcg tablet Take 0.25 mcg by mouth daily. diltiazem CD (CARDIZEM CD) 180 mg capsule Take 360 mg by mouth daily. FUROSEMIDE (LASIX PO) Take 40 mg by mouth daily. glucosamine(+) 500 mg tab Take 500 mg by mouth once. LOPERAMIDE HCL (IMODIUM PO) Take by mouth. Half tablet twice a day losartan (COZAAR) 25 mg tablet Take 25 mg by mouth daily. metoprolol (LOPRESSOR) 100 mg tablet Take 100 mg by mouth twice daily. MULTIVITAMINS WITH FLUORIDE (MULTI-VITAMIN PO) Take by mouth daily. POTASSIUM CHLORIDE (KLOR-CON M20 PO) Take 20 mEq by mouth daily. rosuvastatin (CRESTOR) 5 mg tablet Take 0.5 mg by mouth daily. RUMENT ASSEMBLY SUPERVISOR documented in this encounter Plan of Treatment Order Schedule Name Type Priority Associated Diagnoses Ordered: 03/15/2015 ECG 12-LEAD ECG Routine Paroxysmal atrial fibrillation Coronary artery disease involving coronary bypass graft of [place] heart with angina pectoris Expected: 04/15/2015, Expires: 03/15/2016 DEVICE EVALUATION - PPM Device Check Routine Paroxysmal atrial fibrillation Coronary artery disease involving coronary bypass graft of [place] heart with angina pectoris documented as of this encounter Visit Diagnoses Diagnosis Paroxysmal atrial fibrillation (HCC) - Primary Atrial fibrillation Coronary artery disease involving coronary bypass graft of [place] heart with angina pectoris (HCC) documented in this encounter
--- OUTSIDE RECORDS SUMMARY | 2018-09-18 12:55 | XMS REPORT | Encounter Summary ---
Author Author [facility] Organization [facility] Address Unknown Phone Unavailable Care Team Providers Care Head Tennis Professional Name Role Phone PCP Unavailable Encounter Details Care Team Description Date Type Department Herlinda Schaffer Atrial fibrillation, unspecified (Primary Dx) 01/18/2015 Orders Only CVM REFERRAL Social History Date Tobacco Use Types Packs/Day Years Used Never Assessed Sex Assigned at Date Recorded Not on file Industry Job Start Date Occupation Not on file Not on file Not on file Travel End Travel History Travel Start No recent travel history available. documented as of this encounter Plan of Treatment Not on filedocumented as of this encounter Visit Diagnoses Diagnosis Atrial fibrillation, unspecified - Primary documented in this encounter
--- OUTSIDE RECORDS SUMMARY | 2018-09-18 12:55 | XMS REPORT | Encounter Summary ---
Author Author [facility] Organization [facility] Address Unknown Phone Unavailable Care Team Providers Care Farmworker Fur Name Role Phone Steffany Parsons MD PCP Encounter Details Care Team Description Date Type Department Farnaz Mijares RN Paroxysmal atrial fibrillation (Primary Dx) 03/15/2015 Orders Only [facility] [address] [place], [place] [phone] Social History Date Tobacco Use Types Packs/Day Years Used Never Assessed Sex Assigned at Date Recorded Not on file Industry Job Start Date Occupation Not on file Not on file Not on file Travel End Travel History Travel Start No recent travel history available. documented as of this encounter Plan of Treatment Not on filedocumented as of this encounter Results * DEVICE EVALUATION - PPM (03/15/2015 4:02 PM PROVIDER ENROLLMENT SPECIALIST) # Mode S. OTHER OUTSIDE Events LAB [...] Width OTHER OUTSIDE LAB RV Sense mv COAGULATOR OTHER OUTSIDE LAB RV Lead ohms 478 [...] OTHER OUTSIDE Reprogram LAB Comments Initial Rhythm COAGULATOR 90's OTHER OUTSIDE LAB Underlying COAGULATOR @ VVI 30 bpm OTHER OUTSIDE Rhythm [...] 5 beats OTHER OUTSIDE Detect LAB -VS% COAGULATOR 100% OTHER OUTSIDE LAB -COAGULATOR% OTHER OUTSIDE LAB -VS% OTHER OUTSIDE LAB AP-COAGULATOR% OTHER OUTSIDE LAB Initial Rhythm V-paced OTHER [...] remote LAB transmission AT/AF Daily OTHER OUTSIDE [place] Hours LAB Average Vent OTHER OUTSIDE Rate during LAB AT/AF #BPM Average Vent OTHER OUTSIDE Rate During LAB AT/AF #Hours Remote Yes OTHER OUTSIDE Monitoring? LAB Wireless No OTHER OUTSIDE Generator LAB Daily [place] OTHER OUTSIDE Threshld Alert? LAB Average OTHER [...] OTHER OUTSIDE Next Due LAB DIMITRIOS/EOL per programmer numerical control. OTHER OUTSIDE Indicator LAB Generator Medtronic OTHER OUTSIDE [facility] LAB Generator OTHER OUTSIDE [facility] LAB Other Generator Model Sensia [id number] OTHER OUTSIDE # LAB Generator [id number] OTHER OUTSIDE Serial # LAB Generator 12/18/11 OTHER OUTSIDE Implnat Date LAB Atrial Lead Medtronic OTHER OUTSIDE [facility] LAB Atrial Lead OTHER OUTSIDE [facility] LAB Other Atrial Lead 556,853 OTHER OUTSIDE Model # LAB Atrial Lead [id number] OTHER OUTSIDE Serial # LAB Atrial Lead 08/31/2006 OTHER OUTSIDE Implant Date LAB RV Lead Medtronic OTHER OUTSIDE [facility] LAB RV Lead OTHER OUTSIDE [facility] LAB Other RV Lead Model # 507,658 OTHER OUTSIDE LAB RV Lead Serial [id number] OTHER OUTSIDE # LAB RV Lead Implant 08/31/2006 OTHER OUTSIDE Date LAB LV Lead OTHER OUTSIDE [facility] LAB LV Lead OTHER OUTSIDE [facility] LAB Other LV Lead Model # OTHER [...] OUTSIDE LAB [03/15/2015 4:43:23 PM - FARNAZ MIJARES] Single chamber pacemaker programming.Device function appears normal. [...] parameters. Pt followed by cardiology group in [facility]. Programming reviewed by MPE in clinic; adjustments ordered by MPE. Will continue to monitor. Performing Organization Address City/State/Zipcode Phone Number OTHER OUTSIDE LAB documented in this encounter Visit Diagnoses Diagnosis Paroxysmal atrial fibrillation (HCC) - Primary Atrial fibrillation documented in this encounter
--- OUTSIDE RECORDS SUMMARY | 2018-09-18 12:55 | XMS REPORT | Encounter Summary ---
Author Author [facility] Organization [facility] Address Unknown Phone Unavailable Care Team Providers Care Warp Splitter Name Role Phone Steffany Parsons MD PCP Reason for Visit * Reason Comments New Patient Referral from pati Sanchez Encounter Details Care Team Description Date Type Department Benito Contreras RN New Patient (Referral from pati Sanchez) 03/12/2015 Telephone [facility] [address] [facility] [place] [address] Social History Date Tobacco Use Types Packs/Day [...]
--- NOTE | 2018-09-18 12:58 | Diagnostic Imaging Report ---
PROCEDURE: CT angiography of the chest with contrast. TECHNIQUE: Multiple contiguous axial images were obtained through the chest after uneventful bolus administration of intravenous contrast. 2D reconstructed CTA MIP acquisitions were also performed. Auto Exposure Controls were utilized during the CT exam to meet ALARA standards for radiation dose reduction. INDICATION: Hemoptysis, shortness of air, recent hospitalization for pneumonia. COMPARISON: Exam compared to 08/31/2018. FINDINGS: There are no intraluminal pulmonary arterial filling defects. There is no pulmonary arterial embolus. While there are chronic changes of centrilobular emphysema and chronic lung disease present, acute infiltrates bilaterally most notably in the upper lobes, have progressed. No evidence for abscess or empyema. Minute amount of pleural fluid is in the posterior sulci, nonloculated. No pneumothorax. There are coronary and aortic nonaneurysmal calcifications on an atherosclerotic basis. IMPRESSION: 1. Small pleural effusions without loculation. Increased bilateral infiltrates, suspect for pneumonia. Negative for PE or acute aortic disease. 2. Not mentioned above, low-density nodule in the right adrenal gland is stable; favoring adenoma. Dictated by: Dictated on workstation # [id number]
--- NOTE | 2018-09-18 13:07 | Diagnostic Imaging Report ---
INDICATION: Shortness of breath. Frontal chest obtained at 10:33 a.m. and compared 09/12/2018. FINDINGS: There is poststernotomy change with cardiomegaly. There is no change in the pacemaker device. There is worsening central vascular congestion with diffuse interstitial edema compatible with CHF. There is superimposed alveolar infiltrate which may represent alveolar edema versus pneumonia. Correlate with clinical findings. There is no pneumothorax or pleural fluid. IMPRESSION: Cardiomegaly, central vascular congestion with interstitial edema. There are perihilar alveolar infiltrates which may represent alveolar edema or pneumonia. Correlate with clinical findings. Dictated by: Dictated on workstation # [id number]
[2018-09-18] MEDS ORDERED: methylPREDNISolone 125 MG (Solu-MEDROL) VIAL IV STA (13:14)
[2018-09-18] MEDS ORDERED: PIPERACILLIN SODIUM/TAZOBACTAM 4.5 GM in NS (IVPB) 100 ML IV ONE (13:15)
--- NOTE | 2018-09-18 13:16 | NUR ---
WATER GIVEN TO PT. IN TALKING WITH PT AT THIS ROOM.
[2018-09-18] MEDS: NS 100 ML (IVPB) BAG IV ONE ×2 (13:39→18:09)
[2018-09-18 13:43] LABS: FIBRIN DEGRADATION PRODUCTS 1.04 UG/ML (0.00-0.49); INR 1.3 (0.8-1.4); PROTHROMBIN TIME PATIENT 17.1 SEC (12.2-14.7)
[2018-09-18 13:56] LABS: HEMOGLOBIN 10.8 G/DL (13.3-17.7); MEAN PLATELET VOLUME 10.1 FL (7.4-10.4); RED CELL DISTRIBUTION WIDTH 14.8 % (10.0-14.5); WHITE BLOOD COUNT 9.7 10^3/uL (4.3-11.0)
--- NOTE | 2018-09-18 14:25 | NUR ---
PT ARRIVED TO FLOOR WITH AND STAFF AT SIDE. A/O X4. PT ORIENTED TO ROOM, CALL LIGHT, AND ROOM. OXYMASK 5L ON PT. PER PT REPORTS COUGH WITH BLOODY SPUTUM. DENIES ANY PAIN AT THIS TIME. PT RESTING IN BED WITH NO RESPIRATORY DISTRESS. PT ABLE TO MAKE NEEDS KNOWN, CALL LIGHT WITHIN REACH.
[2018-09-18 14:47] VITALS: BP 146/69
[2018-09-18] MEDS ORDERED: NOREPINEPHRINE 4 MG in NS (IVPB) 250 ML IV SCH (14:49)
[2018-09-18] MEDS ORDERED: NS IV ONE (15:00)
[2018-09-18 15:26] LABS: ALANINE AMINOTRANSFERASE 36 U/L (0-55); ALBUMIN 3.4 GM/DL (3.2-4.5); ALKALINE PHOSPHATASE 92 U/L (40-136); BILIRUBIN,TOTAL 1.6 MG/DL (0.1-1.0); BUN/CREATININE RATIO 13; CALCIUM 8.9 MG/DL (8.5-10.1); CARBON DIOXIDE 24 MMOL/L (21-32); CHLORIDE 99 MMOL/L (98-107); CREATININE SERUM 1.12 MG/DL (0.60-1.30); GFR ESTIMATED > 60; GLUCOSE 191 MG/DL (70-105); POTASSIUM 4.2 MMOL/L (3.6-5.0); SODIUM 132 MMOL/L (135-145); TOTAL PROTEIN 6.2 GM/DL (6.4-8.2)
--- NOTE | 2018-09-18 15:39 | Pulmonary Consultation ---
History of Present Illness History of Present Illness Date of Consultation 09/18/18 15:33 Time Seen by Provider: 15:34 Date of Admission History of Present Illness 78yo with recent hospitalization presented secondary to worsening SOB over the last 24hours and is once again coughing up blood. Pt is on Eliquis secondary to Afib. During last hospitalization Eliquis was stopped secondary to pulmonary hemorrhage however then restarted after pt improved. Pt was also found to have bilateral infiltrates on CXR while in ED. He was admitted with abx tx and close observation. \\ Allergies and Home Medications Allergies Coded Allergies: Sulfa (Sulfonamide Antibiotics) (Verified Allergy, Unknown, 08/31/18) montelukast (Unverified Adverse Reaction, Unknown, 06/08/16) Hallucinations per pt Home Medications Apixaban 5 Mg Tablet, 5 MG PO BID, (Reported) Cholecalciferol (Vitamin D3) 5,000 Unit Capsule, 5,000 UNIT PO DAILY, (Reported) Digoxin 250 Mcg Tablet, 250 MCG PO 1900, (Reported) Diltiazem HCl 180 Mg Cap.er.24h, 360 MG PO DAILY, (Reported) TAKES 2 (180MG) CAPSULES Fluticasone Propionate 16 Gm [place].susp, 1 SPRAY NS BID PRN for ALLERGIES, (Reported) Furosemide 40 Mg Tablet, 40 MG PO DAILY, (Reported) Gluc HCl/Csa/Chat[place] Hy/Hyalur AC 1 Each Capsule, 1 CAP PO 1800, (Reported) Lactobacillus Combination No.4 1 Each Capsule, 1 CAP PO BID, (Reported) Loperamide HCl 2 Mg Tablet, 1 MG PO BID, (Reported) TAKES 1/2 (2MG) TABLET Loratadine 10 Mg Tablet, 10 MG PO DAILY, (Reported) Losartan Potassium 25 Mg Tablet, 25 MG PO 1800, (Reported) Magnesium 250 Mg Tablet, 250 MG PO DAILY, (Reported) Melatonin 10 Mg Tablet, 10 MG PO HS, (Reported) Mesalamine 1.2 Gm Tablet.dr, 2.4 GM PO HS, (Reported) TAKES 2 (1.2GM) TABLETS Metoprolol Tartrate 100 Mg Tablet, 100 MG PO BID, (Reported) Multivit-Min/FA/Lycopene/Lut 1 Each Tablet, 1 TAB PO HS, (Reported) Potassium Chloride 20 Meq Tab.er.prt, 20 MEQ PO DAILY, (Reported) Rosuvastatin Calcium 5 Mg Tablet, 2.5 MG PO 1800, (Reported) TAKES 1/2 (5MG) TABLET Tamsulosin HCl 0.4 Mg Cap, 0.4 MG PO 1800, (Reported) Triamcinolone Acet 15 Gm Cr, TOP BID PRN for SORES, (Reported) Past Polftfc-Xyypwa-Rsmohk Hx Past Med/Social Hx: Reviewed Nursing Past Med/Soc Hx Patient Social History Alcohol Use: Denies Use Recreational Drug Use: No Smoking Status: Former Smoker Type Used: Cigarettes Former Smoker, Quit: Dec 08, 1991 Recent Foreign Travel: No Contact w/Someone Who Travel: No Recent Infectious Disease Expo: No Recent Hopitalizations: No Immunizations Up To Date Date of Pneumonia Vaccine: August 05, 2018 Date of Influenza Vaccine: Jan 08, 2017 Seasonal Allergies Seasonal Allergies: Yes Past Medical History Surgeries: Yes (5 VESSEL CABG, PACEMAKER X2, STENTS X2, skin ca removal) Cardiac, CABG, Coronary Stent, Gallbladder, Pacemaker Respiratory: Yes (BI-PAP) Pneumonia, Sleep Apnea, COPD Currently Using CPAP: No Currently Using BIPAP: Yes Cardiac: Yes (PACER, STENTS, BYPASS) Atrial Fibrillation, Coronary Artery Disease, High Cholesterol, Hypertension Neurological: No Reproductive Disorders: No Sexually Transmitted Disease: No HIV/AIDS: No Genitourinary: No Gastrointestinal: Yes (ULCERATIVE COLITIS) Colitis, Chronic Diarrhea, Polyps Musculoskeletal: No Endocrine: No HEENT: No Loss of Vision: Denies Hearing Impairment: Denies Cancer: Yes (SKIN CANCER) Skin, Melanoma Psychosocial: No Integumentary: Yes (melanoma) Blood Disorders: No Adverse Reaction/Blood Tranf: No (N/A) Family Medical History Reviewed Nursing Family Hx Arthritis Cardiovascular disease Kidney disease G8 BROTHER Leukemia G8 BROTHER Multiple myeloma Prostate cancer 19 FATHER Heart Disease, Hypertension Review of Systems Time Seen by Provider: 10:08 Constitutional: Weakness, Malaise; No: Fever, Chills, Sweats, Other Eyes: No: Pain, Vision change, Conjunctivae inflammation, Eyelid inflammation, Other, Redness ENT: No: Ear pain, Ear discharge, Nose pain, Nose discharge, Nose congestion, M outh pain, Mouth swelling, Throat pain, Throat swelling, Other Respiratory: Shortness of breath, SOB with excertion, Wheezing, Hemoptysis Cardiovascular: Paroxysmal Noc. Dyspnea; No: Chest Pain, Palpitations, Orthopnea, Edema, Lt Headedness, Other Gastrointestinal: No: Nausea, Vomiting, Abdominal Pain, Diarrhea, Constipation, Melena, Hematochezia, Other Genitourinary: No Dysuria, No Frequency, No Incontinence, No Hematuria, No Retention, No Other Neurological: Weakness Sepsis Event Evaluation Height, Weight, BMI Height: 5'8.00" Weight: 197lbs. 6.0oz. 89.995925dn; 30.2 BMI Method:Stated Exam Exam Vital Signs Date Time Temp Pulse Resp B/P (MAP) Pulse Ox O2 Delivery O2 Flow Rate FiO2 09/18/18 14:47 97.9 84 18 146/69 92 Nasal Cannula 5.00 09/18/18 14:09 64 16 123/66 (85) 98 Room Air 09/18/18 08:48 Nasal Cannula 4.00 09/18/18 08:48 99.4 68 16 142/77 (98) 76 Room Air Height & Weight Height: 5'8.00" Weight: 197lbs. 6.0oz. 89.172128xg; 30.2 BMI Method:Stated General Appearance: WD/WN, Mild Distress HEENT: PERRL/EOMI, Pharynx Normal Neck: Normal Inspection, Non Tender, Supple Respiratory: No Respiratory Distress, Decreased Breath Sounds, Wheezing Cardiovascular: Regular Rate, Rhythm, No Murmur Capillary Refill: Less Than 3 Seconds Extremity: Normal Range of Motion, Non Tender Neurologic/Psychiatric: Alert, Oriented x3 Results Lab Laboratory Tests 09/18/18 08:55 Assessment/Plan Assessment/Plan Pulmonary hemorrhage -Stop Eliquis -monitor -Add telemetry and vitals Q 4 PNA with SOB and hypoxia -Oxygen -Check ABG -SVNs -Continue Zosyn Metabolic lactic acidosis -Monitor -IVF -Check ABG JUAN HESS DO Sep 18, 2018 15:38
--- NOTE | 2018-09-18 16:18 | History & Physicial ---
History of Present Illness History of Present Illness Reason for visit/HPI PT IS A 78 Y/O MALE WHO IS KNOWN TO ME FROM CLINIC. HE WAS RECENTLY HOSPITALIZED FOR PNEUMONIA AND PULMONARY HEMORRHAGE. HE WAS DISCHARGED LAST WEEK AFTER HAVING SIGNIFICANT IMPROVEMENT AND CLEARING OF HIS INFECTION. WE HAD REQUESTED ADMISSION TO INPATIENT REHAB, BUT HIS INSURANCE COMPANY REFUSED TO ALLOW ADMISSION TO THE UNIT- WHICH IS UNFORTUNATE BECAUSE YEHUDA WOULD HAVE STILL BEEN HOSPITALIZED FOR THERAPY/STRENGTHENING AND WE PROBABLY WOULD HAVE BEEN ABLE TO AVOID THIS GRAVE OF AN ILLNESS WE WOULD HAVE CAUGHT HIS SYMPTOMS SOONER THAN HIS WAS ABLE TO DETECT. HE PRESENTED TO THE ER WITH RECURRENT HEMORRHAGE AND RECURRENT PNEUMONIA. HE WAS PLACED ON THE 4TH FLOOR BUT TRANSFERRED TO THE ICU DUE TO HIS DX, ACTIVE HEMORRHAGE AND WORSENING OXYGENATION. Date of Admission Sep 18, 2018 at 13:37 Date Seen by a Provider: Sep 19, 2018 Time Seen by a Provider: 16:18 I consulted on this patient on 09/18/18 16:17 Attending Physician Codey Parsons MD Admitting Physician Codey Parsons MD Consult DR. HESS - SERVICE PLUMBER Allergies and Home Medications Allergies Coded Allergies: Sulfa (Sulfonamide Antibiotics) (Verified Allergy, Unknown, 08/31/18) montelukast (Unverified Adverse Reaction, Unknown, 06/08/16) Hallucinations per pt Home Medications Apixaban 5 Mg Tablet, 5 MG PO BID, (Reported) Cholecalciferol (Vitamin D3) 5,000 Unit Capsule, 5,000 UNIT PO DAILY, (Reported) Digoxin 250 Mcg Tablet, 250 MCG PO 1900, (Reported) Diltiazem HCl 180 Mg Cap.er.24h, 360 MG PO DAILY, (Reported) TAKES 2 (180MG) CAPSULES Fluticasone Propionate 16 Gm [place].susp, 1 SPRAY NS BID PRN for ALLERGIES, (Reported) Furosemide 40 Mg Tablet, 40 MG PO DAILY, (Reported) Gluc HCl/Csa/Chat[place] Hy/Hyalur AC 1 Each Capsule, 1 CAP PO 1800, (Reported) Lactobacillus Combination No.4 1 Each Capsule, 1 CAP PO BID, (Reported) Loperamide HCl 2 Mg Tablet, 1 MG PO BID, (Reported) TAKES 1/2 (2MG) TABLET Loratadine 10 Mg Tablet, 10 MG PO DAILY, (Reported) Losartan Potassium 25 Mg Tablet, 25 MG PO 1800, (Reported) Magnesium 250 Mg Tablet, 250 MG PO DAILY, (Reported) Melatonin 10 Mg Tablet, 10 MG PO HS, (Reported) Mesalamine 1.2 Gm Tablet.dr, 2.4 GM PO HS, (Reported) TAKES 2 (1.2GM) TABLETS Metoprolol Tartrate 100 Mg Tablet, 100 MG PO BID, (Reported) Multivit-Min/FA/Lycopene/Lut 1 Each Tablet, 1 TAB PO HS, (Reported) Potassium Chloride 20 Meq Tab.er.prt, 20 MEQ PO DAILY, (Reported) Rosuvastatin Calcium 5 Mg Tablet, 2.5 MG PO 1800, (Reported) TAKES 1/2 (5MG) TABLET Tamsulosin HCl 0.4 Mg Cap, 0.4 MG PO 1800, (Reported) Triamcinolone Acet 15 Gm Cr, TOP BID PRN for SORES, (Reported) Patient Home Medication List Home Medication List Reviewed: Yes Past Knvvjez-Eumhxq-Ruzxay Hx Patient Social History Marrital Status: Living Status: LIVES AT HOME WITH SPOUSE Employed/Student: retired Alcohol Use: Denies Use Recreational Drug Use: No Smoking Status: Former Smoker Former Smoker, Quit: Dec 08, 1991 Type Used: Cigarettes 2nd Hand Smoke Exposure: No Physical Abuse Screen: No Sexual Abuse: No Recent Foreign Travel: No Contact w/other who traveled: No Recent Hopitalizations: No Recent Infectious Disease Expo: No Immunizations Up To Date Date of Pneumonia Vaccine: August 05, 2018 Date of Influenza Vaccine: Jan 08, 2017 Seasonal Allergies Seasonal Allergies: Yes Surgeries Yes (5 VESSEL CABG, PACEMAKER X2, STENTS X2, skin ca removal) Cardiac, CABG, Coronary Stent, Gallbladder, Pacemaker Respiratory Yes (BI-PAP) COPD, Sleep Apnea Currently Using CPAP: No Currently Using BIPAP: Yes Cardiovascular Yes (PACER, STENTS, BYPASS) Atrial Fibrillation, Coronary Artery Disease, High Cholesterol, Hypertension Neurological No Reproductive System Hx Reproductive Disorders: No Sexually Transmitted Disease: No HIV/AIDS: No Genitourinary No Gastrointestinal Yes (ULCERATIVE COLITIS) Colitis, Chronic Diarrhea, Polyps Musculoskeletal No Endocrine History of Endocrine Disorders: No HEENT History of HEENT Disorders: No Loss of Vision: Denies Hearing Impairment: Denies Cancer Yes (SKIN CANCER) Skin, Melanoma Psychosocial History of Psychiatric Problem: No Integumentary History of Skin or Integumenta: Yes (melanoma) Blood Transfusions History of Blood Disorders: No Adverse Reaction to a Blood Tr: No (N/A) Reviewed Nursing Assessment Reviewed/Agree w Nursing PMH: Yes Family Medical History Significant Family History: Heart Disease, Hypertension Family Hx: Arthritis Cardiovascular disease Kidney disease G8 BROTHER Leukemia G8 BROTHER Multiple myeloma Prostate cancer 19 FATHER Review of Systems Constitutional: No chills; fever, malaise, weakness EENTM: No hoarseness, No throat pain Respiratory: cough, dyspnea on exertion, phlegm, short of breath Cardiovascular: No chest pain, No palpitations Gastrointestinal: No constipation; diarrhea; No loss of appetite Genitourinary: no symptoms reported Musculoskeletal: muscle weakness Skin: no symptoms reported Psychiatric/Neurological: Denies Anxiety, Denies Depressed; Weakness All Other Systems Reviewed Negative Unless Noted: Yes Physical Exam Vital Signs Vital Signs - First Documented 09/18/18 09/18/18 08:48 18:39 Temp 99.4 Pulse 68 Resp 16 B/P (MAP) 142/77 (98) Pulse Ox 76 O2 Delivery Room Air O2 Flow Rate 4.00 FiO2 50 Capillary Refill : Less Than 3 Seconds Height, Weight, BMI Height: 5'8.00" Weight: 197lbs. 6.0oz. 89.811379zu; 30.2 BMI Method:Stated General Appearance: WD/WN, Mild Distress (DUE TO INCREASED WORK OF BREATHING) Eyes: Bilateral Eye Normal Inspection, Bilateral Eye PERRL, Bilateral Eye EOMI HEENT: PERRL/EOMI, Pharynx Normal Neck: Full Range of Motion, Non Tender, Supple Respiratory: Chest Non Tender, Crackles (IN BASES), Decreased Breath Sounds, Rhonci, Wheezing Cardiovascular: Normal Peripheral Pulses, Systolic Murmur, Irregularly Irregular Gastrointestinal: Normal Bowel Sounds, No Organomegaly, No Pulsatile Mass, Non Tender, Soft Rectal: Deferred Back: Normal Inspection, No Vertebral Tenderness Extremity: Normal Capillary Refill, Normal Range of Motion, Non Tender, No Calf Tenderness, Pedal Edema (TRACE) Neurologic/Psychiatric: Alert, Oriented x3, No Motor/Sensory Deficits, Normal Mood/Affect, beeswax bleacher II-XII Norm as Tested Skin: Normal Color, Warm/Dry Lymphatic: No Adenopathy Assessment/Plan Assessment and Plan PULMONARY HEMORRHAGE PNEUMONIA ATRIAL FIBRILLATION HYPERTENSION HYPERLIPIDEMIA ULCERATIVE COLITIS GENERALIZED WEAKNESS INSOMNIA CHRONIC ANTICOAGULATION USE BPH PULMONARY HEMORRHAGE WITH PNEUMONIA - DISCUSSED WITH THE PATIENT AND HIS - WE ARE AT THE POINT THAT WE CANNOT CONTINUE TO KEEP HIM ON ELIQUIS - THIS WILL HAVE TO BE WORKED OUT WITH THE ORDERLY TO THE NEXT TREATMENT OPTIONS FOR YEHUDA DUE TO HIS ATRIAL FIBRILLATION. WE MAY BE ABLE TO MAINTAIN ASPIRIN, BUT THIS WILL HAVE TO BE CLOSELY MONITORED. TREATMENT WITH IV ANTIBIOTICS - BREATHING TREATMENTS, HEATED HUMIDIFICATION WITH VAPOTHERM. ATRIAL FIBRILLATION - STATED ABOVE - HOLD ASPIRIN AND ELIQUIS - DEFER OTHER TREATMENT TO DR. VERNON GILLIAM'S PRIMARY ORDERLY. HYPERTENSION - RESUME HOME REGIMEN HYPERLIPIDEMIA - STABLE - HOLD STATIN FOR NOW, WILL RESTART LATER DURING HOSPITALIZATION. ULCERATIVE COLITIS - RESTART LIALDA GENERALIZED WEAKNESS - START THERAPY - WILL AGAIN TRY TO GET HIM ADMITTED TO INPT REHAB UNIT - [facility], SINCE HIS INSURANCE REFUSED ON THIS LAST ADMISSION THEY WILL RECONSIDER HIS CASE AND AGREE THAT YEHUDA NEEDS THE CARE AND MONITORING AVAILABLE ON THE INPT REHAB UNIT SINCE HE IS HIGHER FUNCTIONING THAN WOULD NORMALLY BE SEEN AT THE [facility]. INSOMNIA - RESTART HIS HOME MELATONIN DOSING. CHRONIC ANTICOAGULATION USE - ON HOLD AT THIS TIME DUE TO THE PULMONARY HEMORRHAGE. BPH - RESTART TAMSULOSIN. Admission Diagnosis PULMONARY HEMORRHAGE PNEUMONIA ATRIAL FIBRILLATION HYPERTENSION HYPERLIPIDEMIA ULCERATIVE COLITIS GENERALIZED WEAKNESS INSOMNIA CHRONIC ANTICOAGULATION USE BPH Admission Status: Inpatient Order (span 2 midnights) Reason for Inpatient Admission: INPT ADMISSION DUE TO ACUTE PULMONARY HEMORRHAGE AND NEED FOR ICU ADMISSION Clinical Quality Measures DVT/VTE Risk/Contraindication: Risk Factor Score Per Nursin RFS Level Per Nursing on Admit: 4+=Very High CODEY PARSONS MD Sep 18, 2018 16:18
[2018-09-18 16:42] LABS: ABG BASE EXCESS 0.2 MMOL/L (-2.5-2.5); ABG OXYGEN SATURATION 92 % (94-100); ABG PCO2 32 MMHG (35-45); ABG PH 7.48 (7.37-7.43); ABG PO2 55 MMHG (79-93); ABG TCO2 24.3 MMOL/L (21.0-31.0); ALLENS TEST YES-POS; INSPIRED O2 6L; PATIENT TEMP 98.6; VENTILATOR NO
[2018-09-18 16:51] VITALS: BP 125/69
--- NOTE | 2018-09-18 17:00 | NUR ---
PT TO TRANSFER TO ICU PER DR BARILLAS, AWAITING ON OPEN ROOM. PT AND FAMILY UPDATED
--- NOTE | 2018-09-18 17:45 | NUR ---
REPORT GIVEN TO LEIDA DANIELSON IN ICU. 1755 PT TRANSFERRED TO ICU, ALL BELONGINGS SENT WITH PT.
[2018-09-18] MEDS: methylPREDNISolone 40 MG/ML (Solu-MEDROL) VIAL IV SCH (18:08)
--- NOTE | 2018-09-18 18:19 | NUR ---
Pt arrived to ICU room 6 at this time from fourth floor. VSS. Pt currently has no complaints at this time, Will continue to monitor.
[2018-09-18] MEDS: RT-ALBUTEROL/IPRATROPIUM 3 ML (DUONEB) VIAL INH SCH ×2 (18:39→22:34)
[2018-09-18 19:00] VITALS: BP 116/64
[2018-09-18 20:00] VITALS: BP 124/82
[2018-09-18] MEDS: PIPERACILLIN/TAZO 4.5 GM/NS 100 ML IV SCH ×2 (20:25)
[2018-09-18 21:00] VITALS: BP 127/68
[2018-09-18] MEDS: NS IV 1000 ML 1,000 ML IV SCH (21:17)
--- OUTSIDE RECORDS SUMMARY | 2018-09-18 21:24 | XMS REPORT | Clinical Summary ---
Author Author [facility] Organization [facility] Address Unknown Phone Unavailable Care Team Providers Care Business Machines Teacher Name Role Phone Steffany Parsons MD PCP Source Comments Some departments are not documenting in the electronic medical record. If you d o not see the information that you expected, contact [facility] of Information in [facility] [employer] Information Management department at [phone] for further assistan ce in locating additional records.[facility] Allergies Not on File Medications End Date Status Medication Sig Dispensed Refills Start Date Active rosuvastatin (CRESTOR) 5 Take 0.5 mg 0 mg tabletIndications: by mouth Paroxysmal atrial daily. fibrillation (HCC), Coronary artery disease involving coronary bypass graft of [place] heart with angina pectoris (HCC) Active digoxin (LANOXIN) 250 mcg Take 0.25 mcg 0 tabletIndications: by mouth Paroxysmal atrial daily. fibrillation (HCC), Coronary artery disease involving coronary bypass graft of [place] heart with angina pectoris (HCC) Active POTASSIUM CHLORIDE Take 20 mEq 0 (KLOR-CON M20 by mouth PO)Indications: daily. Paroxysmal atrial fibrillation (HCC), Coronary artery disease involving coronary bypass graft of [place] heart with angina pectoris (HCC) Active FUROSEMIDE (LASIX Take 40 mg by 0 PO)Indications: mouth daily. Paroxysmal atrial fibrillation (HCC), Coronary artery disease involving coronary bypass graft of [place] heart with angina pectoris (HCC) Active losartan (COZAAR) 25 mg Take 25 mg by 0 tabletIndications: mouth daily. Paroxysmal atrial fibrillation (HCC), Coronary artery disease involving coronary bypass graft of [place] heart with angina pectoris (HCC) Active dabigatran (PRADAXA) 150 Take 150 mg 0 mg capsuleIndications: by mouth Paroxysmal atrial twice daily. fibrillation (HCC), Coronary artery disease involving coronary bypass graft of [place] heart with angina pectoris (HCC) Active ASPIRIN POIndications: Take 81 mg by 0 Paroxysmal atrial mouth daily. fibrillation (HCC), Coronary artery disease involving coronary bypass graft of [place] heart with angina pectoris (HCC) Active MULTIVITAMINS WITH Take by 0 FLUORIDE (MULTI-VITAMIN mouth daily. PO)Indications: Paroxysmal atrial fibrillation (HCC), Coronary artery disease involving coronary bypass graft of [place] heart with angina pectoris (HCC) Active glucosamine(+) 500 mg Take 500 mg 0 tabIndications: by mouth Paroxysmal atrial once. fibrillation (HCC), Coronary artery disease involving coronary bypass graft of [place] heart with angina pectoris (HCC) Active LOPERAMIDE HCL (IMODIUM Take by 0 PO)Indications: mouth. Half Paroxysmal atrial tablet twice fibrillation (HCC), a day Coronary artery disease involving coronary bypass graft of [place] heart with angina pectoris (HCC) Active diltiazem CD (CARDIZEM Take 360 mg 0 CD) 180 mg by mouth capsuleIndications: daily. Paroxysmal atrial fibrillation (HCC), Coronary artery disease involving coronary bypass graft of [place] heart with angina pectoris (HCC) Active metoprolol (LOPRESSOR) Take 100 mg 0 100 mg tabletIndications: by mouth Paroxysmal atrial twice daily. fibrillation (HCC), Coronary artery disease involving coronary bypass graft of [place] heart with angina pectoris (HCC) Active Problems Problem Noted Date CHF (congestive heart failure) 03/15/2015 Overview: 03/30/08: CABG x5: EF 45-50%. 12/30/13: LHC: EF 45-50%. No PCI. Severe [place] CAD. 03/22/15: LHC: Severe multivessel atherosclerotic CAD. Normal LV size. Mild LV dysfunction EF 45%. No evidence of HF at rest. Previously stented proximal and middle LAD, widely patent, with no in-stent restenosis. Coronary artery disease involving coronary bypass graft of [place] heart 03/15/2015 with angina pectoris HTN (hypertension) [...] Comments Vital Sign 110/78 03/15/2015 3:03 PM HEALTHCARE REPRESENTATIVE Blood Pressure 94 03/15/2015 3:03 PM HEALTHCARE REPRESENTATIVE Pulse - - Temperature - - Respiratory Rate - - Oxygen Saturation - - Inhaled Oxygen Concentration 88.9 kg (196 lb) 03/15/2015 3:03 PM HEALTHCARE REPRESENTATIVE Weight 171.5 cm (5' 7.5") 03/15/2015 3:03 PM HEALTHCARE REPRESENTATIVE Height 30.24 03/15/2015 3:03 PM HEALTHCARE REPRESENTATIVE Body Mass Index Plan of Treatment Health [...] MEDICARE resent REPLACEMEN T Advance Directives Patient Boiler Tester Explanation Type Date Recorded Advance 03/12/2015 10:28 AM Directive/DPOA
--- OUTSIDE RECORDS SUMMARY | 2018-09-18 21:24 | XMS REPORT | Encounter Summary ---
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 OTHER OUTSIDE Events LAB [...] Width OTHER OUTSIDE LAB RV Sense mv MECHANICAL DESIGN DRAFTER OTHER OUTSIDE LAB RV Lead ohms 478 [...] OTHER OUTSIDE Reprogram LAB Comments Initial Rhythm MECHANICAL DESIGN DRAFTER 90's OTHER OUTSIDE LAB Underlying MECHANICAL DESIGN DRAFTER @ VVI 30 bpm OTHER OUTSIDE Rhythm [...] 5 beats OTHER OUTSIDE Detect LAB -VS% MECHANICAL DESIGN DRAFTER 100% OTHER OUTSIDE LAB -MECHANICAL DESIGN DRAFTER% OTHER OUTSIDE LAB -VS% OTHER OUTSIDE LAB AP-MECHANICAL DESIGN DRAFTER% OTHER OUTSIDE LAB Initial Rhythm V-paced OTHER [...] remote LAB transmission AT/AF Daily OTHER OUTSIDE [place] Hours LAB Average Vent OTHER OUTSIDE Rate during LAB AT/AF #BPM Average Vent OTHER OUTSIDE Rate During LAB AT/AF #Hours Remote Yes OTHER OUTSIDE Monitoring? LAB Wireless No OTHER OUTSIDE Generator LAB Daily [place] OTHER OUTSIDE [place] Alert? LAB Average OTHER [...] OTHER OUTSIDE Next Due LAB DIMITRIOS/EOL per it programmer. OTHER OUTSIDE Indicator LAB Generator [employer]onic OTHER OUTSIDE Bookkeeping Clerks Supervisor LAB Generator OTHER OUTSIDE Bookkeeping Clerks Supervisor LAB Other Generator Model Sensia [id number] OTHER OUTSIDE # LAB Generator [id number] OTHER OUTSIDE Serial # LAB Generator 12/18/11 OTHER OUTSIDE Implnat Date LAB Atrial Lead [employer] OTHER OUTSIDE Bookkeeping Clerks Supervisor LAB Atrial Lead OTHER OUTSIDE Bookkeeping Clerks Supervisor LAB Other Atrial Lead [id number] OTHER OUTSIDE Model # LAB Atrial Lead [id number] OTHER OUTSIDE Serial # LAB Atrial Lead 08/31/2006 OTHER OUTSIDE Implant Date LAB RV Lead [employer]tronic OTHER OUTSIDE Bookkeeping Clerks Supervisor LAB RV Lead OTHER OUTSIDE Bookkeeping Clerks Supervisor LAB Other RV Lead Model # [id number] OTHER OUTSIDE LAB RV Lead Serial [id number] OTHER OUTSIDE # LAB RV Lead Implant 08/31/2006 OTHER OUTSIDE Date LAB LV Lead OTHER OUTSIDE Bookkeeping Clerks Supervisor LAB LV Lead OTHER OUTSIDE Bookkeeping Clerks Supervisor LAB Other LV Lead Model # OTHER [...] parameters. Pt followed by cardiology group in [facility]. Programming reviewed by MPE in clinic; adjustments ordered by MPE. Will continue to monitor. Performing Organization Address City/State/Zipcode Phone Number OTHER OUTSIDE LAB documented in this encounter Visit Diagnoses Diagnosis Paroxysmal atrial fibrillation (HCC) - Primary Atrial fibrillation documented in this encounter
--- OUTSIDE RECORDS SUMMARY | 2018-09-18 21:25 | XMS REPORT | Encounter Summary ---
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 OTHER OUTSIDE Events LAB [...] Width OTHER OUTSIDE LAB RV Sense mv EGYPTOLOGIST OTHER OUTSIDE LAB RV Lead ohms 478 [...] OTHER OUTSIDE Reprogram LAB Comments Initial Rhythm EGYPTOLOGIST 90's OTHER OUTSIDE LAB Underlying EGYPTOLOGIST @ VVI 30 bpm OTHER OUTSIDE Rhythm [...] 5 beats OTHER OUTSIDE Detect LAB -VS% EGYPTOLOGIST 100% OTHER OUTSIDE LAB -EGYPTOLOGIST% OTHER OUTSIDE LAB -VS% OTHER OUTSIDE LAB AP-EGYPTOLOGIST% OTHER OUTSIDE LAB Initial Rhythm V-paced OTHER [...] remote LAB transmission AT/AF Daily OTHER OUTSIDE [place] Hours LAB Average Vent OTHER OUTSIDE Rate during LAB AT/AF #BPM Average Vent OTHER OUTSIDE Rate During LAB AT/AF #Hours Remote Yes OTHER OUTSIDE Monitoring? LAB Wireless No OTHER OUTSIDE Generator LAB Daily [place] OTHER OUTSIDE Threshld Alert? LAB Average OTHER [...] OTHER OUTSIDE Next Due LAB DIMITRIOS/EOL per cad programmer. OTHER OUTSIDE Indicator LAB Generator [employer]tronic OTHER OUTSIDE Sheet Metal Engineer LAB Generator OTHER OUTSIDE Sheet Metal Engineer LAB Other Generator Model Sensia [id number] OTHER OUTSIDE # LAB Generator [id number] OTHER OUTSIDE Serial # LAB Generator 12/18/11 OTHER OUTSIDE Implnat Date LAB Atrial Lead Medtronic OTHER OUTSIDE Sheet Metal Engineer LAB Atrial Lead OTHER OUTSIDE Sheet Metal Engineer LAB Other Atrial Lead 556,853 OTHER OUTSIDE Model # LAB Atrial Lead [id number] OTHER OUTSIDE Serial # LAB Atrial Lead 08/31/2006 OTHER OUTSIDE Implant Date LAB RV Lead Medtronic OTHER OUTSIDE Sheet Metal Engineer LAB RV Lead OTHER OUTSIDE Sheet Metal Engineer LAB Other RV Lead Model # 507,658 OTHER OUTSIDE LAB RV Lead Serial [id number] OTHER OUTSIDE # LAB RV Lead Implant 08/31/2006 OTHER OUTSIDE Date LAB LV Lead OTHER OUTSIDE Sheet Metal Engineer LAB LV Lead OTHER OUTSIDE Sheet Metal Engineer LAB Other LV Lead Model # OTHER [...] parameters. Pt followed by cardiology group in [facility]. Programming reviewed by MPE in clinic; adjustments ordered by MPE. Will continue to monitor. Performing Organization Address City/State/Zipcode Phone Number OTHER OUTSIDE LAB documented in this encounter Visit Diagnoses Diagnosis Paroxysmal atrial fibrillation (HCC) Atrial fibrillation documented in this encounter
--- OUTSIDE RECORDS SUMMARY | 2018-09-18 21:25 | XMS REPORT | Encounter Summary ---
Author Author [facility] Organization [facility] Address Unknown Phone Unavailable Care Team Providers Care Clinical Product Specialist Name Role Phone PCP Unavailable Encounter Details [...]
--- OUTSIDE RECORDS SUMMARY | 2018-09-18 21:25 | XMS REPORT | Encounter Summary ---
Author Author [facility] Organization [facility] Address Unknown Phone Unavailable Care Team Providers Care Interior Decorator Paperhanging Name Role Phone Steffany Parsons MD PCP Reason for Visit * Reason Comments New Patient Referral from pati Sanchez Encounter Details Care Team Description Date Type Department Benito Contreras RN New Patient (Referral from pati Sanchez) 03/12/2015 Telephone [facility] 4000 [facility] [place] [address] Social History Date Tobacco Use Types Packs/Day [...]
--- OUTSIDE RECORDS SUMMARY | 2018-09-18 21:25 | XMS REPORT | Encounter Summary ---
Author Author [facility] Organization [facility] Address Unknown Phone Unavailable Care Team Providers Care Battery Vent Plug Inserter Name Role Phone Steffany Parsons MD PCP Reason for Visit * Reason Comments New Patient Afib and possible ablation. Encounter Details Care Team Description Date Type Department Ivan Veloz MD [address] [id number] New Patient (Afib and possible ablation.) 03/15/2015 Office Visit [facility] [address] [id number] Social History Date Tobacco Use Types Packs/Day Years Used Never Assessed Sex Assigned at Date Recorded Not on file Industry Job Start Date Occupation Not on file Not on file Not on file Travel End Travel History Travel Start No recent travel history available. documented as of this encounter Last Filed Vital Signs Reading Time Taken Comments Vital Sign 110/78 03/15/2015 3:03 PM INDUSTRIAL X RAY OPERATOR Blood Pressure 94 03/15/2015 3:03 PM INDUSTRIAL X RAY OPERATOR Pulse - - Temperature - - Respiratory Rate - - Oxygen Saturation - - Inhaled Oxygen Concentration 88.9 kg (196 lb) 03/15/2015 3:03 PM INDUSTRIAL X RAY OPERATOR Weight 171.5 cm (5' 7.5") 03/15/2015 3:03 PM INDUSTRIAL X RAY OPERATOR Height 30.24 03/15/2015 3:03 PM INDUSTRIAL X RAY OPERATOR Body Mass Index documented in this encounter Patient Instructions * Patient Instructions* Benito Contreras RN - 03/15/2015 5:15 PM INDUSTRIAL X RAY OPERATOR 1. Follow up with Dr. Veloz in 1 month. STRIAL X RAY OPERATOR documented in this encounter Progress Notes * Ivan Veloz MD - 03/15/2015 3:20 PM INDUSTRIAL X RAY OPERATOR Date of Service: 03/15/2015 Vishnu Jaimes is a 74 y.o. male. HPI I had the pleasure of seeing your patient Vishnu Jaimes for initial Electrophysi olgy Consultation in the [facility] as a part of the [facility] Cardiology [facility] office today regarding his Atrial Arrhythmias and R apid HRs . He is typically followed and was referred by my friend and colleague, Dr. Avila his primary lead press operator, in [place], [place]. Mr. Jaimes is an exceptionally pleasant [...] He was seen by Dr. Baires in [place]. At that time, he was reportedly initiated on Pradaxa. Also per their records, on October 012011, he was initiated on sotalol. No cardioversion, however, was pursued. December 2011, follow-up with Dr. Avila with persistent AFL still present. So talol discontinued in favor of metoprolol and atrial flutter accepted as permane nt. December 18, 2011, patient's pacemaker was at [facility] Given his permanent AFL at that time, [...] nurse who was checking his pacemaker from [place] in [facility]. At that time, per his description, she [...] heart rates noted on his pacemaker in [facility], his AV node suppressing medical therapy was [...] consider upgrading his d evice to a DIPLOMATIC OFFICER-D. If, however, his EF is normal, then [...] His blood pressure is under good control. (DOC:[id number]) I spent well over an hour obtaining [...] in the care of your patie nt. (DOC:[id number]) Mr. Jaimes was educated regarding plan of [...] 12/30/13: LHC: EF 45-50%. No PCI. Severe r[place] CAD. Coronary artery disease involving coronary bypass graft of [place] heart with angina pectoris 03/15/2015 HTN (hypertension) [...] artery disease involving coronary bypass graft of [place] heart with angina pectoris Current Medications (including [...] tablet Take 0.5 mg by mouth daily. STRIAL X RAY OPERATOR documented in this encounter Plan of Treatment Order Schedule Name Type Priority Associated Diagnoses Ordered: 03/15/2015 ECG 12-LEAD ECG Routine Paroxysmal atrial fibrillation Coronary artery disease involving coronary bypass graft of [place] heart with angina pectoris Expected: 04/15/2015, Expires: 03/15/2016 DEVICE EVALUATION - PPM Device Check Routine Paroxysmal atrial fibrillation Coronary artery disease involving coronary bypass graft of [place] heart with angina pectoris documented as of this encounter Visit Diagnoses Diagnosis Paroxysmal atrial fibrillation (HCC) - Primary Atrial fibrillation 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
[2018-09-18 23:00] VITALS: BP 141/72
[2018-09-19] VITALS (21 sets, daily range): BP systolic 133–196; BP diastolic 68–95
[2018-09-19] MEDS: methylPREDNISolone 40 MG/ML (Solu-MEDROL) VIAL IV SCH ×4 (00:49→18:39)
[2018-09-19] MEDS: RT-ALBUTEROL/IPRATROPIUM 3 ML (DUONEB) VIAL INH SCH ×6 (02:24→22:05)
[2018-09-19] MEDS: NS IV 1000 ML 1,000 ML IV SCH ×6 (03:09→23:09)
[2018-09-19 03:10] LABS: BASOPHILS % (AUTO) 0 % (0-10); EOSINOPHILS % (AUTO) 0 % (0-10); HEMATOCRIT 29 % (40-54); HEMOGLOBIN 9.6 G/DL (13.3-17.7); LYMPHOCYTES # (AUTO) 0.3 X 10^3 (1.0-4.0); LYMPHOCYTES % (AUTO) 4 % (12-44); MEAN CORPUSCULAR HEMOGLOBIN 31 PG (25-34); MEAN CORPUSCULAR HGB CONC 33 G/DL (32-36); MEAN CORPUSCULAR VOLUME 93 FL (80-99); MEAN PLATELET VOLUME 9.9 FL (7.4-10.4); MONOCYTES # (AUTO) 0.2 X 10^3 (0.0-1.0); MONOCYTES % (AUTO) 2 % (0-12); NEUTROPHILS # (AUTO) 8.3 X 10^3 (1.8-7.8); NEUTROPHILS % (AUTO) 94 % (42-75); PLATELET COUNT 94 10^3/uL (130-400); RED CELL DISTRIBUTION WIDTH 14.6 % (10.0-14.5); WHITE BLOOD COUNT 8.8 10^3/uL (4.3-11.0)
[2018-09-19 03:30] LABS: ALANINE AMINOTRANSFERASE 31 U/L (0-55); ALBUMIN 3.1 GM/DL (3.2-4.5); ALKALINE PHOSPHATASE 82 U/L (40-136); BUN/CREATININE RATIO 13; CALCIUM 8.4 MG/DL (8.5-10.1); CARBON DIOXIDE 20 MMOL/L (21-32); CHLORIDE 105 MMOL/L (98-107); CREATININE SERUM 1.01 MG/DL (0.60-1.30); GFR ESTIMATED > 60; GLUCOSE 311 MG/DL (70-105); POTASSIUM 4.1 MMOL/L (3.6-5.0); SODIUM 135 MMOL/L (135-145); TOTAL PROTEIN 5.9 GM/DL (6.4-8.2)
[2018-09-19] MEDS: POTASSIUM CL 10MEQ/50ML IVPB 50 ML IV SCH (04:24)
[2018-09-19] MEDS: MAGNESIUM 1 GM/100 ML IVPB 100 ML IV SCH (04:24)
[2018-09-19] MEDS: KCL 20 MEQ TAB (K-DUR) PO SCH (04:24)
[2018-09-19] MEDS: PIPERACILLIN/TAZO 4.5 GM/NS 100 ML IV SCH ×6 (04:27→20:15)
[2018-09-19] MEDS ORDERED: DILT180C54 PO ×2 (04:30)
--- NOTE | 2018-09-19 05:58 | Pulmonary Progress Note ---
Subjective Time Seen by a Provider: 06:00 Subjective/Events-last exam Pt still coughing up blood. Sepsis Event Evaluation Height, Weight, BMI Height: 5'8.00" Weight: 197lbs. 6.0oz. 89.035126ds; 30.2 BMI Method:Stated Focused Exam Lactate Level 09/18/18 11:05: Lactic Acid Level 2.68*H 09/19/18 03:00: Lactic Acid Level 2.81*H 09/19/18 04:55: Lactic Acid Level 2.93*H Lactic Acid Level Laboratory Tests Test 09/19/18 03:00 09/19/18 04:55 Lactic Acid Level 2.81 MMOL/L (0.50-2.00) *H 2.93 MMOL/L (0.50-2.00) *H Exam Exam Vital Signs Date Time Temp Pulse Resp B/P (MAP) Pulse Ox O2 Delivery O2 Flow Rate FiO2 09/19/18 05:00 62 24 138/74 (95) 91 Vapotherm 50.00 15.00 09/19/18 04:27 62 22 167/72 (103) 91 Vapotherm 50.00 15.00 09/19/18 04:00 97.1 09/19/18 04:00 93 Vapotherm 15.00 50 09/19/18 03:00 61 152/73 (99) 93 Vapotherm 50.00 15.00 09/19/18 02:24 92 Vapotherm 15.00 50 09/19/18 02:00 62 152/68 (96) 92 Vapotherm 50.00 15.00 09/19/18 01:30 80 149/74 (99) 92 Vapotherm 50.00 15.00 09/19/18 01:00 83 09/19/18 00:00 67 26 148/69 (95) 89 Vapotherm 50.00 15.00 09/19/18 00:00 93 Vapotherm 15.00 50 09/19/18 00:00 96.9 09/18/18 23:00 60 12 141/72 (95) 91 Vapotherm 40.00 15.00 09/18/18 22:37 Vapotherm 40.00 15.00 09/18/18 22:34 95 Vapotherm 15.00 40 09/18/18 22:00 67 25 09/18/18 21:00 61 27 127/68 (87) Vapotherm 50.00 15.00 09/18/18 20:00 61 23 124/82 (96) Vapotherm 50.00 15.00 09/18/18 20:00 93 Vapotherm 15.00 50 09/18/18 20:00 97.5 09/18/18 19:00 61 14 116/64 (81) Vapotherm 50.00 15.00 09/18/18 19:00 61 09/18/18 18:39 90 Vapotherm 15.00 50 09/18/18 16:51 99.1 75 20 125/69 (87) 91 5.00 09/18/18 14:47 97.9 84 18 146/69 92 Nasal Cannula 5.00 09/18/18 14:25 91 Nasal Cannula 5.00 09/18/18 14:09 64 16 123/66 (85) 98 Room Air 09/18/18 08:48 Nasal Cannula 4.00 09/18/18 08:48 99.4 68 16 142/77 (98) 76 Room Air I & O 09/19/18 07:00 Intake Total 420 ml Output Total 775 ml Balance -355 ml Height & Weight Height: 5'8.00" Weight: 197lbs. 6.0oz. 89.545820an; 30.2 BMI Method:Stated General Appearance: WD/WN, Mild Distress HEENT: PERRL/EOMI, Pharynx Normal Neck: Normal Inspection, Non Tender, Supple Respiratory: No Respiratory Distress, Decreased Breath Sounds, Wheezing Cardiovascular: Regular Rate, Rhythm, No Murmur Capillary Refill: Less Than 3 Seconds Extremity: Normal Range of Motion, Non Tender Neurologic/Psychiatric: Alert, Oriented x3 Results Lab Laboratory Tests 09/18/18 08:55 09/19/18 03:00 Assessment/Plan Assessment/Plan Pulmonary hemorrhage -Stop Eliquis -CHeck echo -monitor -Add telemetry and vitals Q 4 PNA with SOB and hypoxia -Oxygen - pt is requiring Vapotherm now -Check ABG -SVNs -Continue Zosyn Metabolic lactic acidosis -Monitor -IVF - give a liter bolus DM -SSI was started last night -May need JUAN Wesley DO Sep 19, 2018 05:58
[2018-09-19] MEDS ORDERED: NS IV 1000 ML 1,000 ML IV SCH (06:00)
[2018-09-19] MEDS ORDERED: methylPREDNISolone 40 MG/ML (Solu-MEDROL) VIAL ONE (06:04)
[2018-09-19] MEDS: inSUlin ASPART (NovoLOG) 1 UNIT/0.01 ML (CHARGE PER UNIT) SC SCH ×3 (06:12→18:47)
[2018-09-19] MEDS ORDERED: DILT300C49 PO (08:28)
[2018-09-19] MEDS ORDERED: TAMS0.4C98 PO ×2 (08:28)
[2018-09-19] MEDS ORDERED: LOPE-134 PO ×2 (08:28)
[2018-09-19] MEDS ORDERED: MELA10TA2 PO ×2 (08:28)
[2018-09-19] MEDS ORDERED: CHOL5000 PO ×2 (08:28)
[2018-09-19] MEDS ORDERED: TR1C15 TOP ×2 (08:28)
[2018-09-19] MEDS ORDERED: MESA1.2T3 PO ×2 (08:28)
[2018-09-19] MEDS ORDERED: APIX5TAB PO ×2 (08:28)
[2018-09-19] MEDS ORDERED: LORA10TA7 PO ×2 (08:28)
--- NOTE | 2018-09-19 08:39 | Diagnostic Imaging Report ---
Frontal chest obtained at 310 hours a.m. and compared to 09/18/2018. There is poststernotomy change with cardiomegaly and unchanged pacemaker device. There are unchanged bilateral perihilar infiltrates. There is no pneumothorax or pleural fluid. Impression: Cardiomegaly and postop changes. Unchanged diffuse bilateral infiltrates compared to yesterday. There is no new abnormality. Dictated by: Dictated on workstation # [id number]
[2018-09-19] MEDS ORDERED: MAGN250T2 PO ×2 (08:49)
[2018-09-19] MEDS ORDERED: DIGO250T15 PO ×2 (08:49)
--- NOTE | 2018-09-19 09:14 | NUR ---
MED REC WAS REVIEWED BY NURSE, I COMPARED WHAT WAS REVIEW WITH THE EXT MED HX. THERE WERE A FEW QUESTIONS I CLARIFIED WITH THE PATIENT AND HIS AND UPDATED THE MED REC ACCORDINGLY. HE HAS BEEN TAKING 2 OF THE CARTIA 180MG DAILY AND NOT THE 300MG DOSE THAT WAS RECENTLY PRESCRIBED. HE HAS ALSO CONTINUED TAKING THE DIGOXIN THAT WAS STOPPED ON 09-09-18 DISCHARGE. I UPDATED THOSE CHANGES.
[2018-09-19] MEDS ORDERED: FLUTICASONE NASAL SPRAY (FLONASE) 16 GM BTL NS PRN (09:30)
--- NOTE | 2018-09-19 09:30 | Progress Note ---
Subjective Date Seen by a Provider: Sep 19, 2018 Time Seen by a Provider: 09:30 Subjective/Events-last exam PT STATE THAT HE IS FEELING FATIGUED - HE REPORTS THAT HE IS COUGHING UP PINK SPUTUM, HE CAN FEEL RATTLING IN HIS CHEST WHEN HE BREATHES AND COUGHS. HE STATES THAT HE HAS A FAIRLY GOOD APPETITE. Review of Systems General: Fatigue; No Malaise HEENT: No Head Aches Pulmonary: Dyspnea, Cough Cardiovascular: No: Chest Pain Gastrointestinal: No: Nausea, Abdominal Pain Neurological: Weakness; No: Confusion Focused Exam Lactate Level 09/18/18 11:05: Lactic Acid Level 2.68*H 09/19/18 03:00: Lactic Acid Level 2.81*H 09/19/18 04:55: Lactic Acid Level 2.93*H Objective Exam Last Set of Vital Signs Vital Signs Date Time Temp Pulse Resp B/P (MAP) Pulse Ox O2 Delivery O2 Flow Rate FiO2 09/19/18 09:00 67 32 170/84 (112) 92 Vapotherm 50.00 15.00 09/19/18 06:13 60 09/19/18 04:00 97.1 Capillary Refill : Less Than 3 Seconds I&O Intake and Output 09/19/18 00:00 Intake Total 200 ml Output Total 500 ml Balance -300 ml Intake Oral 200 ml Output Urine Total 500 ml Daily Weight Change No No General: Alert, Oriented X3, Cooperative, No Acute Distress HEENT: Atraumatic, PERRLA Neck: Supple Lungs: Other (CRACKLES IN BASES AND RHONCHI THROUGHOUT) Heart: Other (IRREGULARLY IRREGULAR) Abdomen: Normal Bowel Sounds, Soft, No Tenderness Extremities: No Clubbing, No Cyanosis Skin: No Rashes, No Breakdown Neuro: Normal Speech Psych/Mental Status: Mental Status NL, Mood NL Results Lab Laboratory Tests 09/18/18 11:05: Lactic Acid Level 2.68*H 09/18/18 16:34: Blood Gas Puncture Site L RAD, Blood Gas Patient Temperature 98.6, Arterial Blood pH 7.48H, Arterial Blood Partial Pressure CO2 32L, Arterial Blood Partial Pressure O2 55L, Arterial Blood HCO3 23, Arterial Blood Total CO2 24.3, Arterial Blood Oxygen Saturation 92L, Arterial Blood Base Excess 0.2, Pranav Test YES-POS, Blood Gas Ventilator Setting NO, Blood Gas Inspired Oxygen 6L 09/19/18 03:00: Lactic Acid Level 2.81*H, White Blood Count 8.8, Red Blood Count 3.09L, H emoglobin 9.6L, Hematocrit 29L, Mean Corpuscular Volume 93, Mean Corpuscular Hemoglobin 31, Mean Corpuscular Hemoglobin Concent 33, Red Cell Distribution Width 14.6H, Platelet Count 94L, Mean Platelet Volume 9.9, Neutrophils (%) (Auto) 94H, Lymphocytes (%) (Auto) 4L, Monocytes (%) (Auto) 2, Eosinophils (%) (Auto) 0, Basophils (%) (Auto) 0, Neutrophils # (Auto) 8.3H, Lymphocytes # (Auto) 0.3L, Monocytes # (Auto) 0.2, Eosinophils # (Auto) 0.0, Basophils # (Auto) 0.0, Sodium Level 135, Potassium Level 4.1, Chloride Level 105, Carbon Dioxide Level 20L, Anion Gap 10, Blood Urea Nitrogen 13, Creatinine 1.01, Estimat Glomerular Filtration Rate > 60, BUN/Creatinine Ratio 13, Glucose Level 311H, Calcium Level 8.4L, Corrected Calcium 9.1, Magnesium Level 1.8, Total Bilirubin 1.0, Aspartate Amino Transf (AST/SGOT) 19, Alanine Aminotransferase (ALT/SGPT) 31, Alkaline Phosphatase 82, Total Protein 5.9L, Albumin 3.1L 09/19/18 04:55: Lactic Acid Level 2.93*H Assessment/Plan Assessment/Plan Assess & Plan/Chief Complaint PULMONARY HEMORRHAGE PNEUMONIA ATRIAL FIBRILLATION HYPERTENSION HYPERLIPIDEMIA ULCERATIVE COLITIS GENERALIZED WEAKNESS INSOMNIA CHRONIC ANTICOAGULATION USE BPH PULMONARY HEMORRHAGE WITH PNEUMONIA - DISCUSSED WITH THE PATIENT AND HIS - WE ARE AT THE POINT THAT WE CANNOT CONTINUE TO KEEP HIM ON ELIQUIS - THIS WILL HAVE TO BE WORKED OUT WITH THE MINERALOGY PROFESSOR TO THE NEXT TREATMENT OPTIONS FOR YEHUDA DUE TO HIS ATRIAL FIBRILLATION. WE MAY BE ABLE TO MAINTAIN ASPIRIN, BUT THIS WILL HAVE TO BE CLOSELY MONITORED. TREATMENT WITH IV ANTIBIOTICS - BREATHING TREATMENTS, HEATED HUMIDIFICATION WITH VAPOTHERM. ATRIAL FIBRILLATION - STATED ABOVE - HOLD ASPIRIN AND ELIQUIS - DEFER OTHER TREATMENT TO DR. JUNIOR -JONA'S PRIMARY MINERALOGY PROFESSOR. HYPERTENSION - RESUMED HOME REGIMEN HYPERLIPIDEMIA - STABLE - HOLD STATIN FOR NOW, WILL RESTART LATER DURING HOSPIT ALIZATION. ULCERATIVE COLITIS - RESTART LIALDA GENERALIZED WEAKNESS - START THERAPY - WILL AGAIN TRY TO GET HIM ADMITTED TO IN PT REHAB UNIT - HOPEFULLY, SINCE HIS INSURANCE REFUSED ON THIS LAST ADMISSION THEY WILL RECONSIDER HIS CASE AND AGREE THAT YEHUDA NEEDS THE CARE AND MONITORING AVAILABLE ON THE INPT REHAB UNIT SINCE HE IS HIGHER FUNCTIONING THAN WOULD NORMALLY BE SEEN AT THE SKILLED NURSING. INSOMNIA - RESTARTED HIS HOME MELATONIN DOSING. CHRONIC ANTICOAGULATION USE - ON HOLD AT THIS TIME DUE TO THE PULMONARY HEMORRHAGE. BPH - RESTARTED TAMSULOSIN. Clinical Quality Measures DVT/VTE Risk/Contraindication: Risk Factor Score Per Nursin RFS Level Per Nursing on Admit: 4+=Very High CODEY BARILLAS MD Sep 19, 2018 09:30
[2018-09-19] MEDS: meTOprolol TARTRATE 50 MG (LOPRESSOR) TAB PO SCH ×2 (09:48→20:15)
[2018-09-19] MEDS: DILTIAZEM 300 MG (CARDIZEM CD) CAP PO SCH (09:48)
[2018-09-19] MEDS: LOPERAMIDE 2 MG (IMODIUM) TABLET PO SCH ×2 (09:49→20:15)
[2018-09-19] MEDS: LACTOBACILLUS ACIDOPHILUS (PROBIOTIC) CAPSULE PO SCH ×2 (09:53→18:39)
--- NOTE | 2018-09-19 10:10 | Consultation-Cardiology ---
HPI-Cardiology Cardiology Consultation: Date of Consultation 09/19/18 Time Seen by a Provider: 09:45 Date of Admission 09-18-18 Attending Physician Steffany Parsons MD Admitting Physician Steffany Parsnos MD Consulting Physician Wendy Avila MD HPI: Chief Complaint: Hemoptysis Dyspnea Mr. Law is a 78 year old male admitted to ICU 6 from the ED. He was recently discharged from [facility] approx 5 days ago. He was feeling better at home, but then on Sunday began to have increasing SOB and weakness. This progressed, Sunday evening he spouse reports she checked his oxygen sat at home and noted it to be 80%, but he did not want to come to the ED. He reports yesterday he continued to feel unwell and was coughing up bright red clots with continued worsening of his dyspnea. He denies any c/o CP, palpitations, syncope or near syncope. No c/o LE swelling, but has been having noc leg cramps. He continues to report hemoptysis this morning and continues to feel SOB without much improvement from yesterday. Spouse is at the bedside. Review of Systems-Cardiology Review of Systems Constitutional: No chills, No fever; malaise Eyes: No vision change Ears/Nose/Throat: No epistaxis, No recent hearing loss Respiratory: As described under HPI Cardiovascular: As described under HPI Gastrointestinal: No constipation, No diarrhea, No nausea; other (poor apetite) Genitourinary: No dysuria, No hematuria Musculoskeletal: no symptoms reported Skin: No rash, No ulcerations Psychiatric/Neurological: No anxiety, No depression, No seizure, No focal weakness, No syncope Hematologic: No bleeding abnormalities All Other Systems Reviewed Negative Unless Noted: Yes POI-Fgsiol-Tzmxvy Hx Patient Social History Alcohol Use: Denies Use Recreational Drug Use: No Smoking Status: Former Smoker Former smoker/When Quit: Dec 30, 2008 Type Used: Cigarettes Recent Foreign Travel: No Recent Infectious Disease Expo: No Immunizations Up To Date Date of Pneumonia Vaccine: August 05, 2018 Date of Influenza Vaccine: Jan 08, 2017 Past Medical History PMH As described under Assessment. Family Medical History Family History: Arthritis Cardiovascular disease Kidney disease G8 BROTHER Leukemia G8 BROTHER Multiple myeloma Prostate cancer 19 FATHER Allergies and Home Medications Allergies Coded Allergies: Sulfa (Sulfonamide Antibiotics) (Verified Allergy, Unknown, 08/31/18) montelukast (Unverified Adverse Reaction, Unknown, 06/08/16) Hallucinations per pt Home Medications Apixaban 5 Mg Tablet, 5 MG PO BID, (Reported) Cholecalciferol (Vitamin D3) 5,000 Unit Capsule, 5,000 UNIT PO DAILY, (Reported) Digoxin 250 Mcg Tablet, 250 MCG PO 1900, (Reported) Diltiazem HCl 180 Mg Cap.er.24h, 360 MG PO DAILY, (Reported) TAKES 2 (180MG) CAPSULES Fluticasone Propionate 16 Gm [place].susp, 1 SPRAY NS BID PRN for ALLERGIES, (Reported) Furosemide 40 Mg Tablet, 40 MG PO DAILY, (Reported) Gluc HCl/Csa/Chato Hy/Hyalur AC 1 Each Capsule, 1 CAP PO 1800, (Reported) Lactobacillus Combination No.4 1 Each Capsule, 1 CAP PO BID, (Reported) Loperamide HCl 2 Mg Tablet, 1 MG PO BID, (Reported) TAKES 1/2 (2MG) TABLET Loratadine 10 Mg Tablet, 10 MG PO DAILY, (Reported) Losartan Potassium 25 Mg Tablet, 25 MG PO 1800, (Reported) Magnesium 250 Mg Tablet, 250 MG PO DAILY, (Reported) Melatonin 10 Mg Tablet, 10 MG PO HS, (Reported) Mesalamine 1.2 Gm Tablet.dr, 2.4 GM PO HS, (Reported) TAKES 2 (1.2GM) TABLETS Metoprolol Tartrate 100 Mg Tablet, 100 MG PO BID, (Reported) Multivit-Min/FA/Lycopene/Lut 1 Each Tablet, 1 TAB PO HS, (Reported) Potassium Chloride 20 Meq Tab.er.prt, 20 MEQ PO DAILY, (Reported) Rosuvastatin Calcium 5 Mg Tablet, 2.5 MG PO 1800, (Reported) TAKES 1/2 (5MG) TABLET Tamsulosin HCl 0.4 Mg Cap, 0.4 MG PO 1800, (Reported) Triamcinolone Acet 15 Gm Cr, TOP BID PRN for SORES, (Reported) Patient Home Medication List Home Medication List Reviewed: Yes Physical Exam-Cardiology Physical Exam Vital Signs/I&O 09/19/18 09/19/18 09/19/18 09/19/18 21:00 22:00 22:05 22:27 Pulse 64 64 69 Resp 24 27 33 B/P (MAP) 152/78 (102) 142/86 (104) Pulse Ox 93 93 92 90 O2 Delivery Vapotherm Vapotherm Vapotherm Vapotherm O2 Flow Rate 70.00 70.00 30.00 75.00 20.00 20.00 30.00 FiO2 75 09/19/18 09/20/18 09/20/18 09/20/18 23:00 00:00 00:00 01:00 Pulse 60 74 61 Resp 27 28 B/P (MAP) 155/77 (103) 177/87 (117) Pulse Ox 97 93 89 O2 Delivery Vapotherm Vapotherm Vapotherm O2 Flow Rate 75.00 40.00 75.00 30.00 30.00 FiO2 80 09/20/18 09/20/18 09/20/18 09/20/18 01:00 01:15 01:20 02:00 Pulse 61 61 60 80 Resp 29 28 27 28 B/P (MAP) 164/87 (112) 169/87 (114) Pulse Ox 92 95 96 92 O2 Delivery Vapotherm NIV Bilevel NIV Bilevel O2 Flow Rate 85.00 60.00 60.00 60.00 40.00 09/20/18 09/20/18 09/20/18 09/20/18 02:54 02:56 03:00 04:00 Pulse 61 60 60 Resp 25 27 24 B/P (MAP) 138/77 (97) Pulse Ox 95 96 92 93 O2 Delivery NIV Bilevel NIV Bilevel NIV Bilevel O2 Flow Rate 55.00 55.00 55.00 FiO2 55 09/20/18 09/20/18 09/20/18 09/20/18 04:00 05:21 06:00 06:49 Pulse 60 64 60 Resp 20 19 B/P (MAP) 143/70 (94) 134/84 (101) 140/70 (93) Pulse Ox 94 99 97 96 O2 Delivery NIV Bilevel NIV Bilevel NIV Bilevel Vapotherm O2 Flow Rate 55.00 55.00 55.00 30.00 FiO2 80 09/20/18 09/20/18 09/20/18 06:49 07:00 07:00 Pulse 65 61 Resp 22 B/P (MAP) 158/74 (102) Pulse Ox 95 O2 Delivery Vapotherm Vapotherm O2 Flow Rate 80.00 80.00 30.00 30.00 09/20/18 00:00 Intake Total 900 ml Output Total 1650 ml Balance -750 ml Capillary Refill : Less Than 3 Seconds Constitutional: AAO x 3, well-developed, well-nourished HEENT: PERRL, hearing is well preserved, oral hygience is good Neck: No carotid bruit; carotid pulses are 2 + bilaterally Respiratory: No accessory muscle use, No respiratory distress; chest expansion is symmetric, chest is bilaterally symmetric, crackles (lower lobes; diminished), rhonchi (scattered over lg airways) Cardiovascular: regular rate-rhythm, S1 and S2, systolic murmur Gastrointestinal: No tender; soft, round, audible bowel sounds Extremities: no lower extremity edema bilateral Neurologic/Psychiatric: grossly intact, power is 5/5 both on sides Skin: normal color, warm/dry; No rash on exposed areas, No ulcerations on exposed areas Data Review Labs Laboratory Tests 09/19/18 11:06: Lactic Acid Level 3.20*H 09/19/18 12:22: Glucometer 260H 09/19/18 13:44: Lactic Acid Level 3.97*H 09/19/18 18:44: Glucometer 269H 09/20/18 00:12: Glucometer 192H 09/20/18 02:25: B-Type Natriuretic Peptide 1270.7H 09/20/18 02:55: White Blood Count 14.4H, Red Blood Count 3.49L, Hemoglobin 10.8L, Hematocrit 32L , Mean Corpuscular Volume 93, Mean Corpuscular Hemoglobin 31, Mean Corpuscular Hemoglobin Concent 33, Red Cell Distribution Width 14.8H, Platelet Count 117L, Mean Platelet Volume 10.0, Neutrophils (%) (Auto) 94H, Lymphocytes (%) (Auto) 3L , Monocytes (%) (Auto) 3, Eosinophils (%) (Auto) 0, Basophils (%) (Auto) 0, Neutrophils # (Auto) 13.6H, Lymphocytes # (Auto) 0.5L, Monocytes # (Auto) 0.4, Eosinophils # (Auto) 0.0, Basophils # (Auto) 0.0, Neutrophils % (Manual) 93, Lymphocytes % (Manual) 5, Monocytes % (Manual) 2, Sodium Level 141, Potassium Level 3.2L, Chloride Level 109H, Carbon Dioxide Level 21, Anion Gap 11, Blood Urea Nitrogen 14, Creatinine 1.02, Estimat Glomerular Filtration Rate > 60, BUN/Creatinine Ratio 14, Glucose Level 207H, Calcium Level 8.6, Corrected Calci um 9.2, Phosphorus Level 3.0, Magnesium Level 2.1, Total Bilirubin 0.7, Aspartate Amino Transf (AST/SGOT) 38H, Alanine Aminotransferase (ALT/SGPT) 53, Alkaline Phosphatase 85, Total Protein 6.4, Albumin 3.3, Digoxin Level < 0.30L 09/20/18 07:00: Blood Gas Puncture Site RT RADIAL, Blood Gas Patient Temperature 96.6, Arterial Blood pH 7.51H, Arterial Blood Partial Pressure CO2 27L, Arterial Blood Partial Pressure O2 58L, Arterial Blood HCO3 22L, Arterial Blood Total CO2 22.9, Arterial Blood Oxygen Saturation 94, Arterial Blood Base Excess -0.8, Pranav Test YES-POS, Blood Gas Ventilator Setting NO, Blood Gas Inspired Oxygen 80 Microbiology 09/18/18 Blood Culture - Preliminary, Resulted No growth 09/18/18 Gram Stain - Final, Resulted 09/18/18 Sputum Culture, Resulted Pending Radiology NAME: YEHUDA ALW [facility] REC#: [id number] PT STATUS: ADM IN : 1940 PHYSICIAN: SANDEEP WALKER MD ADMIT DATE: 09/18/18 Signed Date of Exam: 09/18/18 CT ANGIO CHEST W PROCEDURE: CT angiography of the chest with contrast. TECHNIQUE: Multiple contiguous axial images were obtained through the chest after uneventful bolus administration of intravenous contrast. 2D reconstructed CTA MIP acquisitions were also performed. Auto Exposure Controls were utilized during the CT exam to meet ALARA standards for radiation dose reduction. INDICATION: Hemoptysis, shortness of air, recent hospitalization for pneumonia. COMPARISON: Exam compared to 08/31/2018. FINDINGS: There are no intraluminal pulmonary arterial filling defects. There is no pulmonary arterial embolus. While there are chronic changes of centrilobular emphysema and chronic lung disease present, acute infiltrates bilaterally most notably in the upper lobes, have progressed. No evidence for abscess or empyema. Minute amount of pleural fluid is in the posterior sulci, nonloculated. No pneumothorax. There are coronary and aortic nonaneurysmal calcifications on an atherosclerotic basis. IMPRESSION: 1. Small pleural effusions without loculation. Increased bilateral infiltrates, suspect for pneumonia. Negative for PE or acute aortic disease. 2. Not mentioned above, low-density nodule in the right adrenal gland is stable; favoring adenoma. Dictated by: Dictated on workstation # [id number] Dict: 09/18/18 1252 Trans: 09/18/18 1545 Interpreted by: NAVARRO LONDON Electronically signed by: NAVARRO LONDON 09/18/18 1545 NAME: YEHUDA LAW [facility] REC#: [id number] PT STATUS: ADM IN : 1940 PHYSICIAN: JUAN MIJARES DO ADMIT DATE: 09/18/18/ICU Draft Date of Exam:09/19/18 CHEST 1 VIEW, AP/PA ONLY Frontal chest obtained at 310 hours a.m. and compared to 09/18/2018. There is poststernotomy change with cardiomegaly and unchanged pacemaker device. There are unchanged bilateral perihilar infiltrates. There is no pneumothorax or pleural fluid. Impression: Cardiomegaly and postop changes. Unchanged diffuse bilateral infiltrates compared to yesterday. There is no new abnormality. 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 Cardiac cath from December 30, 2013 in which successful GAURI x 2, one to the proximal and one to the mid vessel LAD, was done. 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 Pacemaker currently in the VVIR mode, due to permanent atrial fib. The patient had a pulse generator change out on 12/18/2011. The device is functioning normally per last interrogation of 06/26/18, but appears to be approaching DIMITRIOS (10 month: 1 month to 19 months) History of ulcerative colitis, being managed by Dr. Parsons and Dr. Seymour Stroke prophylaxis with Eliquis - currently being held d/t hemoptysis Sleep apnea for which he is following with Dr Mijares - Bi-pap therapy Hyperlipidemia being treated with rosuvastatin. Mild carotid arterial disease that has been followed by Dr. Mcdaniel History of cholecystectomy. 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 However d/t hemoptysis with prob recurrent pulmonary hemorrhage we will need to hold off on OAC and ASA for now Losartan and BB has been resumed already We will restart Diltiazem in order to control rate Restart oral diuretics Monitor lab closely Further recs will be based on his hospital course We would like to thank medical services for this consult Clinical Quality Measures DVT/VTE Risk/Contraindication: Risk Factor Score Per Nursin RFS Level Per Nursing on Admit: 4+=Very High VIET CHRISTIAN Sep 19, 2018 10:10
[2018-09-19] MEDS ORDERED: FUROSEMIDE 40 MG (LASIX) TAB PO NR (10:30)
--- NOTE | 2018-09-19 10:54 | NUR ---
Initial visit with pt and his . Pt served in the [employer] and describes meaningful relationships with his children and grandchildren. He and his met at the [facility] in [place], were there and continue to support its ministry. Both describe "not connecting" with their most recent cocktail server, and have since become faithful attendees of [facility] where their grandson serves as coping machine operator. The pt shared that his symptoms have been intensifying and becoming increasingly tenacious despite "doing everything right" to prevent and manage pneumonia. He and his welcomed prayer and expressed appreciation for our visit.
[2018-09-19] MEDS ORDERED: DILTIAZEM 180 MG (CARDIZEM CD) CAP PO NR (11:23)
--- NOTE | 2018-09-19 11:33 | NUR ---
Inpatient rehab evaluation Discussed case with Dr. Parsons and Dr. Saravia. Patient appears appropriate for admission to the inpatient rehab unit if approved by insurance. Will begin prior authorization process. Thank you for this referral.
[2018-09-19] MEDS: TAMSULOSIN 0.4 MG (FLOMAX) CAP PO SCH (18:39)
[2018-09-19] MEDS: LOSARTAN 25 MG (COZAAR) TAB PO SCH (18:39)
--- NOTE | 2018-09-19 19:41 | Consultation-Cardiology ---
HPI-Cardiology Cardiology Consultation: Date of Consultation 09/19/18 Time Seen by a Provider: 18:40 Date of Admission Attending Physician Steffany Parsons MD Admitting Physician Steffany Parsons MD Consulting Physician TOSHA JUNIOR MD, MA, FACP, FACC, FSCAI, CCDS HPI: Chief Complaint: CC: Hemoptysis, shortness of breath HPI Mr. Jaimes is a 78 year old male admitted to ICU 6 from the ED. He was recently discharged from [facility] approx 5 days ago. He was feeling better at home, but then on Sunday began to have increasing SOB and weakness. This progressed, Sunday he spouse reports she checked his oxygen sat at home and noted it to be 80%, but he did not want to come to the ED. He reports yesterday he continued to feel unwell and was coughing up bright red clots with continued worsening of his dyspnea. He denies any c/o CP, palpitations, syncope or near syncope. No c/o LE swelling, but has been having noc leg cramps. He continues to report hemoptysis this morning and continues to feel SOB without much improvement from yesterday. Spouse is at the bedside. Review of Systems-Cardiology Review of Systems Constitutional: No chills, No fever; malaise Eyes: No vision change Ears/Nose/Throat: No epistaxis, No recent hearing loss Respiratory: As described under HPI Cardiovascular: As described under HPI Gastrointestinal: No constipation, No diarrhea, No nausea; other (poor apetite) Genitourinary: No dysuria, No hematuria Musculoskeletal: no symptoms reported Skin: No rash, No ulcerations Psychiatric/Neurological: No anxiety, No depression, No seizure, No focal weakness, No syncope Hematologic: No bleeding abnormalities All Other Systems Reviewed Negative Unless Noted: Yes PMI-Wvcmak-Qlvdni Hx Patient Social History Alcohol Use: Denies Use Recreational Drug Use: No Smoking Status: Former Smoker Former smoker/When Quit: Dec 30, 2008 Type Used: Cigarettes Recent Foreign Travel: No Recent Infectious Disease Expo: No Immunizations Up To Date Date of Pneumonia Vaccine: August 05, 2018 Date of Influenza Vaccine: Jan 08, 2017 Past Medical History PMH As described under Assessment. Family Medical History Family History: Arthritis Cardiovascular disease Kidney disease G8 BROTHER Leukemia G8 BROTHER Multiple myeloma Prostate cancer 19 FATHER Allergies and Home Medications Allergies Coded Allergies: Sulfa (Sulfonamide Antibiotics) (Verified Allergy, Unknown, 08/31/18) montelukast (Unverified Adverse Reaction, Unknown, 06/08/16) Hallucinations per pt Home Medications Apixaban 5 Mg Tablet, 5 MG PO BID, (Reported) Cholecalciferol (Vitamin D3) 5,000 Unit Capsule, 5,000 UNIT PO DAILY, (Reported) Digoxin 250 Mcg Tablet, 250 MCG PO 1900, (Reported) Diltiazem HCl 180 Mg Cap.er.24h, 360 MG PO DAILY, (Reported) TAKES 2 (180MG) CAPSULES Fluticasone Propionate 16 Gm [place].susp, 1 SPRAY NS BID PRN for ALLERGIES, (Reported) Furosemide 40 Mg Tablet, 40 MG PO DAILY, (Reported) Gluc HCl/Csa/Chat[place] Hy/Hyalur AC 1 Each Capsule, 1 CAP PO 1800, (Reported) Lactobacillus Combination No.4 1 Each Capsule, 1 CAP PO BID, (Reported) Loperamide HCl 2 Mg Tablet, 1 MG PO BID, (Reported) TAKES 1/2 (2MG) TABLET Loratadine 10 Mg Tablet, 10 MG PO DAILY, (Reported) Losartan Potassium 25 Mg Tablet, 25 MG PO 1800, (Reported) Magnesium 250 Mg Tablet, 250 MG PO DAILY, (Reported) Melatonin 10 Mg Tablet, 10 MG PO HS, (Reported) Mesalamine 1.2 Gm Tablet.dr, 2.4 GM PO HS, (Reported) TAKES 2 (1.2GM) TABLETS Metoprolol Tartrate 100 Mg Tablet, 100 MG PO BID, (Reported) Multivit-Min/FA/Lycopene/Lut 1 Each Tablet, 1 TAB PO HS, (Reported) Potassium Chloride 20 Meq Tab.er.prt, 20 MEQ PO DAILY, (Reported) Rosuvastatin Calcium 5 Mg Tablet, 2.5 MG PO 1800, (Reported) TAKES 1/2 (5MG) TABLET Tamsulosin HCl 0.4 Mg Cap, 0.4 MG PO 1800, (Reported) Triamcinolone Acet 15 Gm Cr, TOP BID PRN for SORES, (Reported) Patient Home Medication List Home Medication List Reviewed: Yes Physical Exam-Cardiology Physical Exam Vital Signs/I&O 09/19/18 09/19/18 09/19/18 09/19/18 08:00 08:00 09:00 10:00 Pulse 62 67 68 Resp 16 32 26 B/P (MAP) 175/76 (109) 170/84 (112) 179/80 (113) Pulse Ox 94 93 92 93 O2 Delivery Vapotherm Vapotherm Vapotherm Vapotherm O2 Flow Rate 50.00 15.00 50.00 50.00 15.00 15.00 15.00 FiO2 50 620/19 6 609/19/18 10:27 11:00 12:00 12:00 Pulse 64 61 Resp 28 16 B/P (MAP) 141/72 (95) Pulse Ox 91 92 93 92 O2 Delivery Vapotherm Vapotherm Vapotherm Vapotherm O2 Flow Rate 15.00 50.00 15.00 50.00 15.00 15.00 FiO2 60 50 09/19/18 09/19/18 09/19/18 09/19/18 12:48 13:00 14:00 14:10 Pulse 71 62 60 Resp 28 27 B/P (MAP) 133/76 (95) 158/82 (107) Pulse Ox 91 91 92 O2 Delivery Vapotherm Vapotherm Vapotherm O2 Flow Rate 50.00 50.00 15.00 15.00 15.00 FiO2 60 09/19/09/19/18 6/09/19/18 15:00 16:00 16:00 17:00 Pulse 84 70 63 Resp 27 22 23 B/P (MAP) 159/92 (114) 196/95 (128) Pulse Ox 91 93 90 90 O2 Delivery Vapotherm Vapotherm Vapotherm Vapotherm O2 Flow Rate 50.00 15.00 50.00 50.00 15.00 15.00 15.00 FiO2 50 09/19/18 00:00 Intake Total 200 ml Output Total 500 ml Balance -300 ml Capillary Refill : Less Than 3 Seconds Constitutional: AAO x 3, well-developed, well-nourished HEENT: PERRL, hearing is well preserved, oral hygience is good Neck: No carotid bruit; carotid pulses are 2 + bilaterally Respiratory: No accessory muscle use, No respiratory distress; chest expansion is symmetric, chest is bilaterally symmetric, crackles (lower lobes; diminished), rhonchi (scattered over lg airways) Cardiovascular: regular rate-rhythm, S1 and S2, systolic murmur Gastrointestinal: No tender; soft, round, audible bowel sounds Extremities: no lower extremity edema bilateral Neurologic/Psychiatric: grossly intact, power is 5/5 both on sides Skin: normal color, warm/dry; No rash on exposed areas, No ulcerations on exposed areas Data Review Labs Laboratory Tests 09/19/18 03:00: White Blood Count 8.8, Red Blood Count 3.09L, Hemoglobin 9.6L, Hematocrit 29L, Mean Corpuscular Volume 93, Mean Corpuscular Hemoglobin 31, Mean Corpuscular Hemoglobin Concent 33, Red Cell Distribution Width 14.6H, Platelet Count 94L, Mean Platelet Volume 9.9, Neutrophils (%) (Auto) 94H, Lymphocytes (%) (Auto) 4L, Monocytes (%) (Auto) 2, Eosinophils (%) (Auto) 0, Basophils (%) (Auto) 0, N eutrophils # (Auto) 8.3H, Lymphocytes # (Auto) 0.3L, Monocytes # (Auto) 0.2, Eosinophils # (Auto) 0.0, Basophils # (Auto) 0.0, Sodium Level 135, Potassium Level 4.1, Chloride Level 105, Carbon Dioxide Level 20L, Anion Gap 10, Blood Urea Nitrogen 13, Creatinine 1.01, Estimat Glomerular Filtration Rate > 60, BUN/Creatinine Ratio 13, Glucose Level 311H, Lactic Acid Level 2.81*H, Calcium Level 8.4L, Corrected Calcium 9.1, Magnesium Level 1.8, Total Bilirubin 1.0, Aspartate Amino Transf (AST/SGOT) 19, Alanine Aminotransferase (ALT/SGPT) 31, Alkaline Phosphatase 82, Total Protein 5.9L, Albumin 3.1L 09/19/18 04:55: Lactic Acid Level 2.93*H 09/19/18 11:06: Lactic Acid Level 3.20*H 09/19/18 12:22: Glucometer 260H 09/19/18 13:44: Lactic Acid Level 3.97*H 09/19/18 18:44: Glucometer 269H Microbiology 09/18/18 Gram Stain - Final, Resulted 09/18/18 Sputum Culture, Resulted Pending Laboratory Tests 09/18/18 08:55 09/19/18 03:00 A/P-Cardiology Assessment/Admission Diagnosis Pneumonia - management per Pulmonary/Medical services Hemoptysis with pulmonary hemorrhage - management per Pulmonary services Echo of 09/19/18: LVEF 60-65%, biatrial enlargement, mod MR, mild to mod TR, RVSP 45 mmHg 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 Cardiac cath from December 30, 2013 in which successful GAURI x 2, one to the proximal and one to the mid vessel LAD, was done. 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 Pacemaker currently in the VVIR mode, due to permanent atrial fib. The patient had a pulse generator change out on 12/18/2011. The device is functioning normally per last interrogation of August 2018 (DIMITRIOS estimate 10 months) History of ulcerative colitis, being managed by Dr. Parsons and Dr. Seymour Stroke prophylaxis with Eliquis - currently being held d/t hemoptysis Sleep apnea for which he is following with Dr Mijares - Bi-pap therapy Hyperlipidemia being treated with rosuvastatin. Mild carotid arterial disease that has been followed by Dr. Mcdaniel History of cholecystectomy. 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 He has been maintained on OAC with Eliquis d/t chronic PAF/flutter. However d/t hemoptysis with prob recurrent pulmonary hemorrhage we will need to hold off on OAC and ASA for now * Losartan and BB has been resumed already * We will restart Diltiazem in order to control rate * Restart oral diuretics * Monitor lab closely * Further recs will be based on his hospital course * We would like to thank Medical services for this consult Clinical Quality Measures DVT/VTE Risk/Contraindication: Risk Factor Score Per Nursin RFS Level Per Nursing on Admit: 4+=Very High TOSHA JUNIOR MD FACP FACC CCDS Sep 19, 2018 19:41
[2018-09-20] VITALS (27 sets, daily range): BP systolic 132–177; BP diastolic 69–92
[2018-09-20] MEDS: inSUlin ASPART (NovoLOG) 1 UNIT/0.01 ML (CHARGE PER UNIT) SC SCH ×4 (00:05→19:05)
[2018-09-20] MEDS: methylPREDNISolone 40 MG/ML (Solu-MEDROL) VIAL IV SCH ×4 (00:05→18:57)
[2018-09-20] MEDS ORDERED: FUROSEMIDE 40 MG/4 ML INJ (LASIX) ONE (01:00)
[2018-09-20] MEDS ORDERED: FUROSEMIDE 40 MG/4 ML INJ (LASIX) IV ONE (01:15)
--- NOTE | 2018-09-20 01:21 | NUR ---
PT BECOMING INCREASINGLY SOA AND AUDIBLE WHEEZES NOTED. EICU NOTIFIED. PT PLACED ON BI-PAP, 60 MG OF LASIX GIVEN AND IV FLUIDS STOPPED
[2018-09-20] MEDS: RT-ALBUTEROL/IPRATROPIUM 3 ML (DUONEB) VIAL INH SCH ×6 (02:41→22:29)
[2018-09-20 02:59] LABS: BASOPHILS % (AUTO) 0 % (0-10); EOSINOPHILS % (AUTO) 0 % (0-10); HEMATOCRIT 32 % (40-54); HEMOGLOBIN 10.8 G/DL (13.3-17.7); LYMPHOCYTES # (AUTO) 0.5 X 10^3 (1.0-4.0); LYMPHOCYTES % (AUTO) 3 % (12-44); MEAN CORPUSCULAR HEMOGLOBIN 31 PG (25-34); MEAN CORPUSCULAR HGB CONC 33 G/DL (32-36); MEAN CORPUSCULAR VOLUME 93 FL (80-99); MONOCYTES # (AUTO) 0.4 X 10^3 (0.0-1.0); MONOCYTES % (AUTO) 3 % (0-12); NEUTROPHILS # (AUTO) 13.6 X 10^3 (1.8-7.8); NEUTROPHILS % (AUTO) 94 % (42-75); PLATELET COUNT 117 10^3/uL (130-400); RED CELL DISTRIBUTION WIDTH 14.8 % (10.0-14.5); WHITE BLOOD COUNT 14.4 10^3/uL (4.3-11.0)
[2018-09-20 03:16] LABS: MAGNESIUM 2.1 MG/DL (1.8-2.4)
[2018-09-20 03:18] LABS: ALANINE AMINOTRANSFERASE 53 U/L (0-55); ALBUMIN 3.3 GM/DL (3.2-4.5); ALKALINE PHOSPHATASE 85 U/L (40-136); BILIRUBIN,TOTAL 0.7 MG/DL (0.1-1.0); BUN/CREATININE RATIO 14; CALCIUM 8.6 MG/DL (8.5-10.1); CARBON DIOXIDE 21 MMOL/L (21-32); CHLORIDE 109 MMOL/L (98-107); CREATININE SERUM 1.02 MG/DL (0.60-1.30); GFR ESTIMATED > 60; GLUCOSE 207 MG/DL (70-105); POTASSIUM 3.2 MMOL/L (3.6-5.0); SODIUM 141 MMOL/L (135-145); TOTAL PROTEIN 6.4 GM/DL (6.4-8.2)
[2018-09-20] MEDS: POTASSIUM CL 10MEQ/50ML IVPB 50 ML IV SCH ×9 (03:36→14:11)
[2018-09-20] MEDS: MAGNESIUM 1 GM/100 ML IVPB 100 ML IV SCH (03:37)
[2018-09-20] MEDS: KCL 20 MEQ TAB (K-DUR) PO SCH (03:37)
[2018-09-20] MEDS: PIPERACILLIN/TAZO 4.5 GM/NS 100 ML IV SCH ×6 (03:41→20:22)
--- NOTE | 2018-09-20 04:26 | Pulmonary Progress Note ---
Subjective Time Seen by a Provider: 06:02 Subjective/Events-last exam Pt is now requiring BiPAP secondary to acute respiratory distress. He was given lasix per EICU and appears to be doing slightly better. Sepsis Event Evaluation Height, Weight, BMI Height: 5'8.00" Weight: 197lbs. 6.0oz. [id number]; 30.2 BMI Method:Stated Focused Exam Lactate Level 09/19/18 04:55: Lactic Acid Level 2.93*H 09/19/18 11:06: Lactic Acid Level 3.20*H 09/19/18 13:44: Lactic Acid Level 3.97*H Exam Exam Vital Signs Date Time Temp Pulse Resp B/P (MAP) Pulse Ox O2 Delivery O2 Flow Rate FiO2 09/20/18 04:00 93 NIV Bilevel 55 09/20/18 03:00 60 24 138/77 (97) 92 NIV Bilevel 55.00 09/20/18 02:56 60 27 96 NIV Bilevel 55.00 09/20/18 02:54 61 25 95 55.00 09/20/18 02:00 80 28 169/87 (114) 92 NIV Bilevel 60.00 09/20/18 01:20 60 27 96 NIV Bilevel 60.00 09/20/18 01:15 61 28 95 60.00 09/20/18 01:00 61 29 164/87 (112) 92 Vapotherm 85.00 40.00 09/20/18 01:00 61 09/20/18 00:00 74 28 177/87 (117) 89 Vapotherm 75.00 30.00 09/20/18 00:00 93 Vapotherm 40.00 80 09/19/18 23:00 60 27 155/77 (103) 97 Vapotherm 75.00 30.00 09/19/18 22:27 69 33 90 Vapotherm 75.00 30.00 09/19/18 22:05 92 Vapotherm 30.00 75 09/19/18 22:00 64 27 142/86 (104) 93 Vapotherm 70.00 20.00 09/19/18 21:00 64 24 152/78 (102) 93 Vapotherm 70.00 20.00 09/19/18 20:00 73 27 154/77 (102) 92 Vapotherm 70.00 20.00 09/19/18 20:00 98.3 09/19/18 20:00 93 Vapotherm 40.00 80 09/19/18 19:04 62 09/19/18 19:00 62 27 176/74 (108) 91 Vapotherm 70.00 20.00 09/19/18 18:54 92 Vapotherm 20.00 70 09/19/18 17:00 63 23 196/95 (128) 90 Vapotherm 50.00 15.00 09/19/18 16:00 70 22 90 Vapotherm 50.00 15.00 09/19/18 16:00 93 Vapotherm 15.00 50 09/19/18 15:00 84 27 159/92 (114) 91 Vapotherm 50.00 15.00 09/19/18 14:10 92 Vapotherm 15.00 60 09/19/18 14:00 60 27 158/82 (107) 91 Vapotherm 50.00 15.00 09/19/18 13:00 62 28 133/76 (95) 91 Vapotherm 50.00 15.00 09/19/18 12:48 71 09/19/18 12:00 61 16 141/72 (95) 92 Vapotherm 50.00 15.00 09/19/18 12:00 93 Vapotherm 15.00 50 09/19/18 11:00 64 28 92 Vapotherm 50.00 15.00 09/19/18 10:27 91 Vapotherm 15.00 60 09/19/18 10:00 68 26 179/80 (113) 93 Vapotherm 50.00 15.00 09/19/18 09:00 67 32 170/84 (112) 92 Vapotherm 50.00 15.00 09/19/18 08:00 93 Vapotherm 15.00 50 09/19/18 08:00 62 16 175/76 (109) 94 Vapotherm 50.00 15.00 09/19/18 07:00 62 09/19/18 07:00 74 29 180/84 (116) 93 Vapotherm 50.00 15.00 09/19/18 06:13 94 Vapotherm 15.00 60 09/19/18 06:00 63 17 166/81 (109) 95 Vapotherm 50.00 15.00 09/19/18 05:00 62 24 138/74 (95) 91 Vapotherm 50.00 15.00 09/19/18 04:27 62 22 167/72 (103) 91 Vapotherm 50.00 15.00 I & O 09/20/18 07:00 Intake Total 8249 ml Output Total 3350 ml Balance 4899 ml Height & Weight Height: 5'8.00" Weight: 197lbs. 6.0oz. [id number]; 30.2 BMI Method:Stated General Appearance: WD/WN, Moderate Distress HEENT: PERRL/EOMI, Pharynx Normal Neck: Full Range of Motion, Non Tender, Supple Respiratory: Chest Non Tender, Accessory Muscle Use, Crackles (IN BASES), Decreased Breath Sounds, Rhonci, Wheezing Cardiovascular: Normal Peripheral Pulses, Systolic Murmur, Irregularly Irregular Capillary Refill: Less Than 3 Seconds Gastrointestinal: normal bowel sounds, non tender, soft, no organomegaly, no pulsatile mass Extremity: Normal Capillary Refill, Normal Range of Motion, Non Tender, No Calf Tenderness, Pedal Edema (TRACE) Neurologic/Psychiatric: Alert, Oriented x3, No Motor/Sensory Deficits, Normal 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 If pt is intubated he will need bronchoscopy secondary to hemoptysis and pulmonary infiltrations. - will trial pt back to Vapotherm today -Check ABG and BNP -Decrease IVF to KVO Pulmonary hemorrhage -Stop Eliquis - echo shows EF 60-65% -monitor Hypokalemia -Replace PNA with SOB and hypoxia -Check ABG -SVNs -Continue Zosyn Metabolic lactic acidosis -Monitor -IVF - give a liter bolus DM -SSI was started last night -July need JUAN Wesley DO Sep 20, 2018 04:26
[2018-09-20 04:43] LABS: LYMPHOCYTES % (MANUAL) 5 %; MONOCYTES % (MANUAL) 2 %; NEUTROPHILS % (MANUAL) 93 %
[2018-09-20] MEDS: NS IV 1000 ML 1,000 ML IV SCH (06:46)
[2018-09-20 07:08] LABS: ABG BASE EXCESS -0.8 MMOL/L (-2.5-2.5); ABG OXYGEN SATURATION 94 % (94-100); ABG PCO2 27 MMHG (35-45); ABG PH 7.51 (7.37-7.43); ABG PO2 58 MMHG (79-93); ABG TCO2 22.9 MMOL/L (21.0-31.0)
[2018-09-20 07:12] LABS: ALLENS TEST YES-POS
[2018-09-20 07:13] LABS: INSPIRED O2 80; PATIENT TEMP 96.6; VENTILATOR NO
--- NOTE | 2018-09-20 08:21 | Diagnostic Imaging Report ---
Indication: Pneumonia, followup. Time of exam: 3:18 AM Correlation is made with prior study from one day earlier. Changes of median sternotomy and CABG are noted. Cardiac pacemaker remains in place. Bilateral pulmonary infiltrates are similar to slightly increased when compared with yesterday's study. There is no effusion or pneumothorax Impression: Stable to slight increase in bilateral pulmonary infiltrates when compared with exam one day earlier. Dictated by: Dictated on workstation # [id number]
--- NOTE | 2018-09-20 08:23 | Progress Note - Cardiology ---
Cardiology SOAP Progress Note Subjective: Sitting up in chair at the bedside. States he feels better today. Continues to report hemoptysis. Feels SOB is improving. No c/o CP, palpitations, syncope or near syncope. Spouse at the bedside. Objective: I&O/Vital Signs 09/20/18 09/20/18 09/20/18 09/20/18 06:00 06:49 06:49 07:00 Pulse 60 65 Resp 19 B/P (MAP) 140/70 (93) Pulse Ox 97 96 O2 Delivery NIV Bilevel Vapotherm Vapotherm O2 Flow Rate 55.00 30.00 80.00 30.00 FiO2 80 09/20/18 09/20/18 09/20/18 09/20/18 07:00 08:00 08:00 09:00 Pulse 61 60 62 Resp 22 22 34 B/P (MAP) 158/74 (102) 138/72 (94) 159/82 (107) Pulse Ox 95 93 92 95 O2 Delivery Vapotherm NIV Bilevel Vapotherm Vapotherm O2 Flow Rate 80.00 80.00 80.00 30.00 30.00 30.00 FiO2 55 09/20/18 09/20/18 09/20/18 09/20/18 10:00 11:00 11:30 12:00 Temp 97.2 Pulse 60 61 Resp 28 28 B/P (MAP) 174/86 (115) 149/83 (105) Pulse Ox 96 95 93 O2 Delivery Vapotherm Vapotherm NIV Bilevel O2 Flow Rate 80.00 80.00 30.00 30.00 FiO2 55 09/20/18 09/20/18 09/20/18 09/20/18 12:00 12:41 13:00 14:00 Pulse 61 63 60 60 Resp 27 19 32 B/P (MAP) 151/78 (102) 145/81 (102) 142/71 (94) Pulse Ox 96 97 96 O2 Delivery Vapotherm Vapotherm Vapotherm O2 Flow Rate 80.00 80.00 80.00 30.00 30.00 30.00 09/20/18 09/20/18 09/20/18 09/20/18 15:00 16:00 16:08 17:00 Pulse 60 60 61 Resp 27 25 24 B/P (MAP) 161/87 (111) 132/76 (94) 151/70 (97) Pulse Ox 94 96 92 92 O2 Delivery Vapotherm Vapotherm Vapotherm Vapotherm O2 Flow Rate 80.00 80.00 30.00 80.00 30.00 30.00 30.00 FiO2 80 09/20/18 00:00 Intake Total 900 ml Output Total 1650 ml Balance -750 ml Weight (Pounds): 197 Weight (Ounces): 6.0 Weight (Calculated Kilograms): 89.570653 Constitutional: AAO x 3, well-developed, well-nourished Respiratory: No accessory muscle use, No respiratory distress; chest expansion is symmetric, chest is bilaterally symmetric, crackles (lower lobes; diminished), rhonchi (scattered over lg airways) Cardiovascular: regular rate-rhythm, S1 and S2, systolic murmur Gastrointestional: No tender; soft, round, audible bowel sounds Extremities: no lower extremity edema bilateral Neurologic/Psychiatric: grossly intact, power is 5/5 both on sides Skin: normal color, warm/dry; No rash on exposed areas, No ulcerations on exposed areas Results/Procedures: Labs Laboratory Tests 09/19/18 18:44: Glucometer 269H 09/20/18 00:12: Glucometer 192H 09/20/18 02:25: B-Type Natriuretic Peptide 1270.7H 09/20/18 02:55: White Blood Count 14.4H, Red Blood Count 3.49L, Hemoglobin 10.8L, Hematocrit 32L , Mean Corpuscular Volume 93, Mean Corpuscular Hemoglobin 31, Mean Corpuscular Hemoglobin Concent 33, Red Cell Distribution Width 14.8H, Platelet Count 117L, Mean Platelet Volume 10.0, Neutrophils (%) (Auto) 94H, Lymphocytes (%) (Auto) 3L , Monocytes (%) (Auto) 3, Eosinophils (%) (Auto) 0, Basophils (%) (Auto) 0, Neutrophils # (Auto) 13.6H, Lymphocytes # (Auto) 0.5L, Monocytes # (Auto) 0.4, Eosinophils # (Auto) 0.0, Basophils # (Auto) 0.0, Neutrophils % (Manual) 93, Lymphocytes % (Manual) 5, Monocytes % (Manual) 2, Sodium Level 141, Potassium Level 3.2L, Chloride Level 109H, Carbon Dioxide Level 21, Anion Gap 11, Blood Urea Nitrogen 14, Creatinine 1.02, Estimat Glomerular Filtration Rate > 60, BUN/Creatinine Ratio 14, Glucose Level 207H, Calcium Level 8.6, Corrected Calcium 9.2, Phosphorus Level 3.0, Magnesium Level 2.1, Total Bilirubin 0.7, Aspartate Amino Transf (AST/SGOT) 38H, Alanine Aminotransferase (ALT/SGPT) 53, Alkaline Phosphatase 85, Total Protein 6.4, Albumin 3.3, Digoxin Level < 0.30L 09/20/18 07:00: Blood Gas Puncture Site RT RADIAL, Blood Gas Patient Temperature 96.6, Arterial Blood pH 7.51H, Arterial Blood Partial Pressure CO2 27L, Arterial Blood Partial Pressure O2 58L, Arterial Blood HCO3 22L, Arterial Blood Total CO2 22.9, A rterial Blood Oxygen Saturation 94, Arterial Blood Base Excess -0.8, Pranav Test YES-POS, Blood Gas Ventilator Setting NO, Blood Gas Inspired Oxygen 80 09/20/18 09:20: Urine Color YELLOW, Urine Clarity CLEAR, Urine pH 5, Urine Specific [place] 1.015L, Urine Protein 1+H, Urine Glucose (UA) 3+H, Urine Ketones NEGATIVE, Urine Nitrite NEGATIVE, Urine Bilirubin NEGATIVE, Urine Urobilinogen NORMAL, Urine Leukocyte Esterase NEGATIVE, Urine RBC (Auto) NEGATIVE, Urine RBC NONE, Urine WBC RARE, Urine Squamous Epithelial Cells NONE, Urine Crystals NONE, Urine Ba cteria NEGATIVE, Urine Casts NONE, Urine Mucus NEGATIVE, Urine Culture Indicated NO 09/20/18 11:29: Glucometer 247H Microbiology 09/18/18 Blood Culture - Preliminary, Resulted No growth 09/18/18 Gram Stain - Final, Resulted 09/18/18 Sputum Culture - Preliminary, Resulted Usual upper respiratory evette A/P: Assessment: Pneumonia - management per Pulmonary/Medical services Hemoptysis with pulmonary hemorrhage - management per Pulmonary services Echo of 09/19/18: LVEF 60-65%, biatrial enlargement, mod MR, mild to mod TR, RVSP 45 mmHg 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 Cardiac cath from December 30, 2013 in which successful GAURI x 2, one to the proximal and one to the mid vessel LAD, was done. 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 Pacemaker currently in the VVIR mode, due to permanent atrial fib. The patient had a pulse generator change out on 12/18/2011. The device is functioning normally per last interrogation of August 2018 (DIMITRIOS estimate 10 months) History of ulcerative colitis, being managed by Dr. Parsons and Dr. Seymour Stroke prophylaxis with Eliquis - currently being held d/t hemoptysis Sleep apnea for which he is following with Dr Mijares - Bi-pap therapy Hyperlipidemia being treated with rosuvastatin. Mild carotid arterial disease that has been followed by Dr. Mcdaniel History of cholecystectomy. Impaired fasting glucose Elevated BMI of approx 30 S/p melanoma removal from the back in 2018, followed by Dr Parsons Plan: * Complex management issue * Pneumonia with sepsis and suspected recurrent pulmonary hemorrhage which precludes us from having him on OAC for stroke prophylaxis. He has been maintained on OAC with Eliquis d/t chronic PAF/flutter. However d/t hemoptysis with prob recurrent pulmonary hemorrhage we will need to hold off on OAC and ASA for now * Continue current medications * Hold dig for now since rate is controlled * Monitor lab closely * Replace electrolytes Physician Assessment Physician Assessment Somewhat less short of breath. No cp. No palp. No syncope. Persistent malaise Lungs: fair bilat air entry, scattered rhonchi, coarse basal crackles Cor: reg Ext: no c/c. 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
[2018-09-20] MEDS: LACTOBACILLUS ACIDOPHILUS (PROBIOTIC) CAPSULE PO SCH ×2 (08:47→18:58)
[2018-09-20] MEDS: DILTIAZEM 300 MG (CARDIZEM CD) CAP PO SCH ×2 (08:47→09:12)
[2018-09-20] MEDS: LORATADINE (CLARITIN) 10 MG TAB PO SCH (08:47)
[2018-09-20] MEDS: LOPERAMIDE 2 MG (IMODIUM) TABLET PO SCH ×2 (08:48→22:10)
[2018-09-20] MEDS: meTOprolol TARTRATE 50 MG (LOPRESSOR) TAB PO SCH ×2 (08:48→22:10)
[2018-09-20] MEDS: FUROSEMIDE 40 MG (LASIX) TAB PO SCH (08:53)
--- NOTE | 2018-09-20 09:26 | Progress Note ---
Subjective Date Seen by a Provider: Sep 20, 2018 Time Seen by a Provider: 09:00 Subjective/Events-last exam PT REPORTS THAT HE IS FEELING FATIGUED STILL, BUT HIS SHORTNESS OF BREATH IS A LITTLE BIT BETTER THAN ON ADMISSION. HE STATES THAT HE HAS NOT COUGHED UP BLOOD, BUT STILL HAS SOME PINK SPUTUM. Review of Systems General: No Chills; Fatigue, Malaise HEENT: No Head Aches, No Visual Changes Pulmonary: Dyspnea, Cough Cardiovascular: No: Chest Pain, Palpitations Gastrointestinal: No: Nausea, Abdominal Pain Genitourinary: No Dysuria Neurological: Weakness, Confusion (SLIGHT) Focused Exam Lactate Level 09/19/18 04:55: Lactic Acid Level 2.93*H 09/19/18 11:06: Lactic Acid Level 3.20*H 09/19/18 13:44: Lactic Acid Level 3.97*H Objective Exam Last Set of Vital Signs Vital Signs Date Time Temp Pulse Resp B/P (MAP) Pulse Ox O2 Delivery O2 Flow Rate FiO2 09/20/18 09:00 62 34 159/82 (107) 95 Vapotherm 80.00 30.00 09/20/18 08:00 55 09/19/18 20:00 98.3 Capillary Refill : Less Than 3 Seconds I&O Intake and Output 09/20/18 00:00 Intake Total 8669 ml Output Total 2245 ml Balance 6424 ml Intake Oral 1850 ml IV Total 6819 ml Output Urine Total 2245 ml # Bowel Movements 1 General: Alert, Oriented X3, Cooperative, No Acute Distress HEENT: Atraumatic, PERRLA Neck: Supple Lungs: Other (CRACKLES IN BASES AND RHONCHI THROUGHOUT) Heart: Other (IRREGULARLY IRREGULAR) Abdomen: Normal Bowel Sounds, Soft, No Tenderness Extremities: No Clubbing, No Cyanosis Skin: No Rashes, No Breakdown Neuro: Normal Speech Psych/Mental Status: Mental Status NL, Mood NL Results Lab Laboratory Tests 09/19/18 11:06: Lactic Acid Level 3.20*H 09/19/18 12:22: Glucometer 260H 09/19/18 13:44: Lactic Acid Level 3.97*H 09/19/18 18:44: Glucometer 269H 09/20/18 00:12: Glucometer 192H 09/20/18 02:25: B-Type Natriuretic Peptide 1270.7H 09/20/18 02:55: White Blood Count 14.4H, Red Blood Count 3.49L, Hemoglobin 10.8L, Hematocrit 32L , Mean Corpuscular Volume 93, Mean Corpuscular Hemoglobin 31, Mean Corpuscular Hemoglobin Concent 33, Red Cell Distribution Width 14.8H, Platelet Count 117L, Mean Platelet Volume 10.0, Neutrophils (%) (Auto) 94H, Lymphocytes (%) (Auto) 3L , Monocytes (%) (Auto) 3, Eosinophils (%) (Auto) 0, Basophils (%) (Auto) 0, Neutrophils # (Auto) 13.6H, Lymphocytes # (Auto) 0.5L, Monocytes # (Auto) 0.4, Eosinophils # (Auto) 0.0, Basophils # (Auto) 0.0, Neutrophils % (Manual) 93, Lymphocytes % (Manual) 5, Monocytes % (Manual) 2, Sodium Level 141, Potassium L evel 3.2L, Chloride Level 109H, Carbon Dioxide Level 21, Anion Gap 11, Blood Urea Nitrogen 14, Creatinine 1.02, Estimat Glomerular Filtration Rate > 60, BUN/Creatinine Ratio 14, Glucose Level 207H, Calcium Level 8.6, Corrected Calcium 9.2, Phosphorus Level 3.0, Magnesium Level 2.1, Total Bilirubin 0.7, Aspartate Amino Transf (AST/SGOT) 38H, Alanine Aminotransferase (ALT/SGPT) 53, Alkaline Phosphatase 85, Total Protein 6.4, Albumin 3.3, Digoxin Level < 0.30L 09/20/18 07:00: Blood Gas Puncture Site RT RADIAL, Blood Gas Patient Temperature 96.6, Arterial Blood pH 7.51H, Arterial Blood Partial Pressure CO2 27L, Arterial Blood Partial Pressure O2 58L, Arterial Blood HCO3 22L, Arterial Blood Total CO2 22.9, Arteria l Blood Oxygen Saturation 94, Arterial Blood Base Excess -0.8, Pranav Test YES- POS, Blood Gas Ventilator Setting NO, Blood Gas Inspired Oxygen 80 Microbiology 09/18/18 Blood Culture - Preliminary, Resulted No growth 09/18/18 Gram Stain - Final, Resulted 09/18/18 Sputum Culture, Resulted Pending Assessment/Plan Assessment/Plan Assess & Plan/Chief Complaint PULMONARY HEMORRHAGE PNEUMONIA ATRIAL FIBRILLATION HYPERTENSION HYPERLIPIDEMIA ULCERATIVE COLITIS GENERALIZED WEAKNESS INSOMNIA CHRONIC ANTICOAGULATION USE BPH PULMONARY HEMORRHAGE WITH PNEUMONIA - DISCUSSED WITH THE PATIENT AND HIS - WE ARE AT THE POINT THAT WE CANNOT CONTINUE TO KEEP HIM ON ELIQUIS - DR. JUNIOR IS IN AGREEMENT WITH THIS AND HE HAS RECOMMENDED AT LEAST A MONTH OFF OF THE ASPIRIN. TREATMENT WITH IV ANTIBIOTICS - BREATHING TREATMENTS, HEATED HUMIDIFICATION WITH VAPOTHERM. ATRIAL FIBRILLATION - STATED ABOVE - HOLD ASPIRIN AND ELIQUIS - DEFER OTHER TREATMENT TO DR. JUNIOR -PT'S PRIMARY TRANSITIONAL CARE NURSE. HYPERTENSION - RESUMED HOME REGIMEN HYPERLIPIDEMIA - STABLE - HOLD STATIN FOR NOW, WILL RESTART LATER DURING HOSPITALIZATION. ULCERATIVE COLITIS - RESTARTED LIALDA GENERALIZED WEAKNESS - START THERAPY - WILL AGAIN TRY TO GET HIM ADMITTED TO INPT REHAB UNIT - [facility], SINCE HIS INSURANCE REFUSED ON THIS LAST ADMISSION THEY WILL RECONSIDER HIS CASE AND AGREE THAT YEHUDA NEEDS THE CARE AND MONITORING AVAILABLE ON THE INPT REHAB UNIT SINCE HE IS HIGHER FUNCTIONING THAN WOULD NORMALLY BE SEEN AT THE RESIDENTIAL. INSOMNIA - RESTARTED HIS HOME MELATONIN DOSING. CHRONIC ANTICOAGULATION USE - ON HOLD AT THIS TIME DUE TO THE PULMONARY HEMORRHAGE. BPH - RESTARTED TAMSULOSIN. I HAVE DISCUSSED WITH THE PT AND HIS THAT WE WILL TRY TO GET HIM ADMITTED TO INPT REHAB IF THE INSURANCE COMPANY IS WILLING TO CONSIDER THIS SECOND REQUEST. Clinical Quality Measures Admission Status Admission Dx PULMONARY HEMORRHAGE PNEUMONIA ATRIAL FIBRILLATION HYPERTENSION HYPERLIPIDEMIA ULCERATIVE COLITIS GENERALIZED WEAKNESS INSOMNIA CHRONIC ANTICOAGULATION USE BPH DVT/VTE Risk/Contraindication: Risk Factor Score Per Nursin RFS Level Per Nursing on Admit: 4+=Very High CODEY BARILLAS MD Sep 20, 2018 09:26
--- NOTE | 2018-09-20 12:15 | NUR ---
FOLLOW UP VISIT WITH PT AND : BOTH SHARED FEELING HOPEFUL AND ENCOURAGED BY PT'S PROGRESS. PT CONTINUES TO RELY ON HIS 'S PRESENCE FOR SUPPORT, AND DERIVES COMFORT AND DIRECTION FROM HIS IRA AND RELATIONSHIPS WITH FAMILY AND THEIR IRA COMMUNITY. HE ENJOYS READING THE TENRIISM SCRIPTURES AND DRAWS UPON THEM FOR INNER STRENGTH.
--- NOTE | 2018-09-20 13:36 | NUR ---
rt was with critical patient and did not get to do patients 1000 svn bt
[2018-09-20 14:27] LABS: BILIRUBIN,URINE NEGATIVE (NEGATIVE); CLARITY,URINE CLEAR; COLOR,URINE YELLOW; GLUCOSE, URINE (UA) 3+ (NEGATIVE); KETONES,URINE NEGATIVE (NEGATIVE); LEUKOCYTE ESTERASE ,URINE NEGATIVE (NEGATIVE); NITRITE,URINE NEGATIVE (NEGATIVE); PH,URINE 5 (5-9); PROTEIN,URINE 1+ (NEGATIVE); UROBILINOGEN,URINE NORMAL (NORMAL)
[2018-09-20 14:33] LABS: BACTERIA,URINE NEGATIVE /HPF; WBC,URINE RARE /HPF
--- NOTE | 2018-09-20 14:56 | NUR ---
ARU note: OTOLARYNGOLOGY SURGEON contacted patient's insurance provider of [facility] to check the status of authorization request for ARU admission (contact #[phone]). Automated system states request is still processing and has not yet been assigned to a CM. ARU will re-attempt on 09/23.
[2018-09-20] MEDS: LOSARTAN 25 MG (COZAAR) TAB PO SCH (18:58)
[2018-09-20] MEDS: TAMSULOSIN 0.4 MG (FLOMAX) CAP PO SCH (18:58)
[2018-09-21] VITALS (30 sets, daily range): BP systolic 97–179; BP diastolic 55–88
[2018-09-21] MEDS: inSUlin ASPART (NovoLOG) 1 UNIT/0.01 ML (CHARGE PER UNIT) SC SCH ×5 (00:49→23:24)
[2018-09-21] MEDS: methylPREDNISolone 40 MG/ML (Solu-MEDROL) VIAL IV SCH ×5 (00:49→23:23)
[2018-09-21] MEDS: RT-ALBUTEROL/IPRATROPIUM 3 ML (DUONEB) VIAL INH SCH ×6 (02:02→22:02)
[2018-09-21 03:25] LABS: BASOPHILS % (AUTO) 0 % (0-10); EOSINOPHILS % (AUTO) 0 % (0-10); HEMATOCRIT 31 % (40-54); HEMOGLOBIN 10.5 G/DL (13.3-17.7); LYMPHOCYTES # (AUTO) 0.7 X 10^3 (1.0-4.0); LYMPHOCYTES % (AUTO) 6 % (12-44); MEAN CORPUSCULAR HEMOGLOBIN 31 PG (25-34); MEAN CORPUSCULAR HGB CONC 34 G/DL (32-36); MEAN CORPUSCULAR VOLUME 92 FL (80-99); MEAN PLATELET VOLUME 9.7 FL (7.4-10.4); MONOCYTES # (AUTO) 0.4 X 10^3 (0.0-1.0); MONOCYTES % (AUTO) 3 % (0-12); NEUTROPHILS # (AUTO) 11.6 X 10^3 (1.8-7.8); NEUTROPHILS % (AUTO) 92 % (42-75); PLATELET COUNT 132 10^3/uL (130-400); RED CELL DISTRIBUTION WIDTH 14.8 % (10.0-14.5); WHITE BLOOD COUNT 12.7 10^3/uL (4.3-11.0)
[2018-09-21 03:43] LABS: MAGNESIUM 1.9 MG/DL (1.8-2.4); PHOSPHORUS 1.9 MG/DL (2.3-4.7)
[2018-09-21 03:47] LABS: ALANINE AMINOTRANSFERASE 48 U/L (0-55); ALKALINE PHOSPHATASE 84 U/L (40-136); BILIRUBIN,TOTAL 0.6 MG/DL (0.1-1.0); BUN/CREATININE RATIO 18; CALCIUM 8.4 MG/DL (8.5-10.1); CARBON DIOXIDE 22 MMOL/L (21-32); CHLORIDE 106 MMOL/L (98-107); GFR ESTIMATED > 60; GLUCOSE 184 MG/DL (70-105); POTASSIUM 3.2 MMOL/L (3.6-5.0); SODIUM 139 MMOL/L (135-145); TOTAL PROTEIN 5.6 GM/DL (6.4-8.2)
[2018-09-21] MEDS: PIPERACILLIN/TAZO 4.5 GM/NS 100 ML IV SCH ×6 (03:53→18:32)
[2018-09-21] MEDS: MAGNESIUM 1 GM/100 ML IVPB 100 ML IV SCH (03:55)
[2018-09-21] MEDS: POTASSIUM CL 10MEQ/50ML IVPB 50 ML IV SCH ×4 (03:55→06:08)
[2018-09-21] MEDS: KCL 20 MEQ TAB (K-DUR) PO SCH (03:56)
[2018-09-21] MEDS ORDERED: fentaNYL INJECTION 100 MCG/2 ML AMP INJ ONE (06:00)
[2018-09-21] MEDS ORDERED: MIDAZOLAM 5 MG/5 ML (VERSED) VIAL IV ONE (06:00)
[2018-09-21] MEDS: NS IV 1000 ML 1,000 ML IV SCH (06:26)
[2018-09-21] MEDS ORDERED: PROPOFOL DRIP (ICU) 100 ML IV ONE (06:37)
[2018-09-21] MEDS ORDERED: POTASSIUM CL 10MEQ/50ML IVPB 50 ML IV SCH (07:00)
--- NOTE | 2018-09-21 07:15 | NUR ---
DR HESS AT BEDSIDE TO INTUBATE. PT GIVEN 100 OF PROPOFOL 5 OF VERSED AND 80 OF SUCCS FOR INTUBATION. 8.0 ET TUBE PLACED AT 24 AT THE LIPS . TUBE PLACEMENT CONFIRMED WITH CO2 DETECTOR AND CHEST XRAY. OG TUBE PLACED AND CONFIRMED. ALEXANDER CATH PUT IN AND PT NANCY ALL PROCEDURES WELL.
--- NOTE | 2018-09-21 07:25 | Pulmonary Procedures ---
Pulmonary Procedures Date of Procedure Date of Service: Sep 21, 2018 Reason for Intubation: respiratory failure with hemoptysis Time of Intubation: 07:24 Intubation Method: orotracheal Tube Size: 8 Medications: Fentanyl, Propofol, Versed Positive End Tide CO2: Yes Breath Sounds after Intubation: bilateral-equal Intubation Complications: no complications Post Intubation Xray: Yes JUAN HESS DO Sep 21, 2018 07:25
[2018-09-21] MEDS ORDERED: POTASSIUM PHOSPHATE INJ 30 MM in NS (IVPB) 250 ML IV ONE (08:00)
[2018-09-21] MEDS ORDERED: POTASSIUM PHOSPHATE INJ 30 MM in NS IV 500 ML 500 ML IV ONE (08:00)
[2018-09-21] MEDS ORDERED: PROPOFOL DRIP (ICU) 100 ML IV SCH (08:30)
[2018-09-21] MEDS ORDERED: HALOPERIDOL 5 MG/ML (HALDOL) AMP IV PRN (08:30)
[2018-09-21] MEDS ORDERED: PANTOPRAZOLE 40 MG (PROTONIX) VIAL ONE (08:45)
[2018-09-21] MEDS: LOPERAMIDE 2 MG (IMODIUM) TABLET PO SCH ×2 (08:46→20:21)
[2018-09-21 08:50] LABS: BUN/CREATININE RATIO 18; CALCIUM 8.5 MG/DL (8.5-10.1); CARBON DIOXIDE 21 MMOL/L (21-32); CHLORIDE 106 MMOL/L (98-107); CREATININE SERUM 0.91 MG/DL (0.60-1.30); GFR ESTIMATED > 60; GLUCOSE 185 MG/DL (70-105); POTASSIUM 3.2 MMOL/L (3.6-5.0); SODIUM 140 MMOL/L (135-145)
--- NOTE | 2018-09-21 08:50 | Diagnostic Imaging Report ---
Portable erect AP chest at 334 hours. INDICATION: Respiratory distress. FINDINGS: The heart is mildly enlarged but stable when compared to 09/20/2018. The sternal wires and surgical clips and the left-sided pacemaker noted on the prior study are again evident and no different. The previous study did note bilateral dense alveolar/interstitial pulmonary infiltrates. Those findings are again visualized and do not seem to have changed significantly. The lung apices remain generally clear. The mediastinum is not widened. The osseous structures are intact. IMPRESSION: Stable chest. There has been no adverse change since the prior exam. A followup study would be recommended for continued evaluation. Dictated by: Dictated on workstation # [id number]
[2018-09-21] MEDS: meTOprolol TARTRATE 50 MG (LOPRESSOR) TAB PO SCH (08:52)
[2018-09-21] MEDS: LACTOBACILLUS ACIDOPHILUS (PROBIOTIC) CAPSULE PO SCH ×2 (08:53→16:43)
[2018-09-21] MEDS: LORATADINE (CLARITIN) 10 MG TAB PO SCH (08:53)
[2018-09-21] MEDS: FUROSEMIDE 40 MG (LASIX) TAB PO SCH (08:54)
[2018-09-21] MEDS: PANTOPRAZOLE 40 MG (PROTONIX) VIAL IV SCH (08:54)
[2018-09-21 08:55] LABS: ABG BASE EXCESS 0.8 MMOL/L (-2.5-2.5); ABG OXYGEN SATURATION 100 % (94-100); ABG PCO2 39 MMHG (35-45); ABG PH 7.42 (7.37-7.43); ABG PO2 341 MMHG (79-93); ABG TCO2 26.1 MMOL/L (21.0-31.0); ALLENS TEST YES-POS; INSPIRED O2 100%; PATIENT TEMP 97.4; VENTILATOR YES
[2018-09-21] MEDS: DILTIAZEM 300 MG (CARDIZEM CD) CAP PO SCH ×2 (09:00→13:55)
--- NOTE | 2018-09-21 09:06 | Physical Therapy Progress Note ---
Therapy Progress Note Patient intubated and sedated currently. Will check back Sunday. MARIA ELENA ESQUIVEL PT Sep 21, 2018 09:06
--- NOTE | 2018-09-21 09:40 | Diagnostic Imaging Report ---
EXAMINATION: Chest radiograph, portable AP view. DATE: September 21, 2018 at 0755 hours. INDICATION: 78-year-old male, post intubation. COMPARISON: September 21, 2018 at 0334 hrs. FINDINGS: There are median sternotomy wires. There is a left-sided cardiac assist device with leads. There is a new endotracheal tube which is approximately 4.3 cm above the leonardo. The new nasogastric tube is at the level of the very proximal stomach. Stable overall appearance of the cardiomediastinal silhouette. There is no identified pneumothorax. Multifocal bilateral lung opacities are essentially unchanged. IMPRESSION: 1. Newly placed endotracheal tube and nasogastric tube. The nasogastric tube tip is at the level of the very proximal stomach. 2. Extensive multifocal bilateral lung consolidation is essentially unchanged. Dictated by: Dictated on workstation # [id number]
[2018-09-21] MEDS ORDERED: MIDAZOLAM 2 MG/2 ML (VERSED) VIAL ONE (09:45)
--- NOTE | 2018-09-21 09:50 | NUR ---
DR HESS AT BEDSIDE FOR [facility] PT GIVEN 4 OF VERSED AND 100 OF FENTANYL FOR PROCEDURE. PT TOLERATED PROCEDURE WELL.
--- NOTE | 2018-09-21 10:07 | Progress Note - Cardiology ---
Cardiology SOAP Progress Note Subjective: Intubated and on mech vent. Unable to communicate Bright red blood has been seen in the ET tube (according to Dr Mijares) Objective: I&O/Vital Signs 09/20/18 09/20/18 09/21/18 09/21/18 22:29 23:00 00:00 00:00 Temp 98.0 Pulse 64 Resp 26 B/P (MAP) 158/74 (102) Pulse Ox 98 92 O2 Delivery Vapotherm Vapotherm Vapotherm O2 Flow Rate 30.00 70.00 30.00 30.00 FiO2 70 70 09/21/18 09/21/18 09/21/18 09/21/18 00:00 01:00 01:00 02:00 Pulse 80 60 60 60 Resp 25 18 B/P (MAP) 128/79 (95) 158/88 (111) 152/87 (108) Pulse Ox 91 91 96 O2 Delivery Vapotherm Vapotherm Vapotherm O2 Flow Rate 70.00 70.00 70.00 30.00 30.00 30.00 09/21/18 09/21/18 09/21/18 09/21/18 02:02 03:00 03:33 04:00 Temp 97.7 Pulse 61 Resp 26 B/P (MAP) 166/81 (109) Pulse Ox 98 91 O2 Delivery Vapotherm Vapotherm Vapotherm O2 Flow Rate 30.00 70.00 30.00 30.00 FiO2 60 70 09/21/18 09/21/18 09/21/18 09/21/18 04:00 05:00 05:39 06:00 Pulse 60 61 60 Resp 24 26 20 B/P (MAP) 162/80 (107) 174/83 (113) 179/85 (116) Pulse Ox 92 93 92 O2 Delivery Vapotherm Vapotherm Vapotherm Vapotherm O2 Flow Rate 60.00 60.00 70.00 70.00 30.00 30.00 30.00 30.00 09/21/18 09/21/18 09/21/18 07:00 07:20 08:13 Pulse 61 70 70 Resp 23 23 Pulse Ox 98 98 FiO2 100 100 09/21/18 00:00 Intake Total 1320 ml Output Total 1700 ml Balance -380 ml Weight (Pounds): 195 Weight (Ounces): 2.0 Weight (Calculated Kilograms): 88.305388 Constitutional: well-developed, well-nourished, other (on mech vent) Respiratory: No accessory muscle use, No respiratory distress; chest expansion is symmetric, chest is bilaterally symmetric, crackles (lower lobes; diminished), rhonchi (scattered over lg airways) Cardiovascular: regular rate-rhythm, S1 and S2, systolic murmur Gastrointestional: No tender; soft, round, audible bowel sounds Extremities: no lower extremity edema bilateral Neurologic/Psychiatric: other (on mech vent, not able to cooperate with a neuro exam) Skin: normal color, warm/dry; No rash on exposed areas, No ulcerations on exposed areas Results/Procedures: Labs Laboratory Tests 09/20/18 11:29: Glucometer 247H 09/20/18 18:59: Glucometer 253H 09/21/18 00:34: Glucometer 254H 09/21/18 03:00: White Blood Count 12.7H, Red Blood Count 3.39L, Hemoglobin 10.5L, Hematocrit 31L , Mean Corpuscular Volume 92, Mean Corpuscular Hemoglobin 31, Mean Corpuscular Hemoglobin Concent 34, Red Cell Distribution Width 14.8H, Platelet Count 132, Mean Platelet Volume 9.7, Neutrophils (%) (Auto) 92H, Lymphocytes (%) (Auto) 6L, Monocytes (%) (Auto) 3, Eosinophils (%) (Auto) 0, Basophils (%) (Auto) 0, Neutrophils # (Auto) 11.6H, Lymphocytes # (Auto) 0.7L, Monocytes # (Auto) 0.4, Eosinophils # (Auto) 0.0, Basophils # (Auto) 0.0, Sodium Level 140, Potassium Level 3.2L, Chloride Level 106, Carbon Dioxide Level 21, Anion Gap 13, Blood Urea Nitrogen 16, Creatinine 0.91, Estimat Glomerular Filtration Rate > 60, BUN/Creatinine Ratio 18, Glucose Level 185H, Calcium Level 8.5, Corrected Calcium 9.2, Phosphorus Level 1.9L, Magnesium Level 1.9, Total Bilirubin 0.6, Aspartate Amino Transf (AST/SGOT) 27, Alanine Aminotransferase (ALT/SGPT) 48, Alkaline Phosphatase 84, Total Protein 5.6L, Albumin 3.0L, Triglycerides Level 80 09/21/18 08:03: 09/21/18 08:45: Blood Gas Puncture Site RT RAD, Blood Gas Patient Temperature 97.4, Arterial Blood pH 7.42, Arterial Blood Partial Pressure CO2 39, Arterial Blood Partial Pressure O2 341H, Arterial Blood HCO3 25, Arterial Blood Total CO2 26.1, Arterial Blood Oxygen Saturation 100, Arterial Blood Base Excess 0.8, Pranav Test YES-POS, Blood Gas Ventilator Setting YES, Blood Gas Inspired Oxygen 100% Microbiology 09/18/18 Blood Culture - Preliminary, Resulted No growth 09/18/18 Gram Stain - Final, Complete 09/18/18 Sputum Culture - Final, Complete Usual upper respiratory evette Laboratory Tests 09/20/18 02:55 09/21/18 03:00 A/P: Assessment: Pneumonia - management per Pulmonary/Medical services Ongoing hemoptysis and pulmonary hemorrhage - management per Pulmonary services Echo of 09/19/18: LVEF 60-65%, biatrial enlargement, mod MR, mild to mod TR, RVSP 45 mmHg 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 Cardiac cath from December 30, 2013 in which successful GAURI x 2, one to the proximal and one to the mid vessel LAD, was done. 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 Pacemaker currently in the VVIR mode, due to permanent atrial fib. The patient had a pulse generator change out on 12/18/2011. The device is functioning normally per last interrogation of August 2018 (DIMITRIOS estimate 10 months) History of ulcerative colitis, being managed by Dr. Parsons and Dr. Seymour Stroke prophylaxis with Eliquis - currently being held d/t hemoptysis Sleep apnea for which he is following with Dr Mijares - Bi-pap therapy Hyperlipidemia being treated with rosuvastatin. Mild carotid arterial disease that has been followed by Dr. Mcdaniel History of cholecystectomy. Impaired fasting glucose Elevated BMI of approx 30 S/p melanoma removal from the back in 2018, followed by Dr Parsons Plan: * Complex management issue * I discussed his case with Dr Mijares * Worsening status has necessitated intubation and mech vent. Dr Mijares planning bronch * Pneumonia with sepsis and suspected recurrent pulmonary hemorrhage which precludes us from having him on OAC for stroke prophylaxis. He has been maintained on OAC with Eliquis d/t chronic PAF/flutter. However d/t hemoptysis with prob recurrent pulmonary hemorrhage we will need to hold off on OAC and ASA for now * Change meds to iv * Replenish lytes * Monitor lab closely TOSHA JUNIOR MD FACP FAC CCDS Sep 21, 2018 10:07
[2018-09-21] MEDS: DEXMEDETOMIDINE INJECTION 1,000 MCG in NS (IVPB) 250 ML IV PRN ×2 (10:08→23:40)
[2018-09-21 10:11] LABS: INR 1.4 (0.8-1.4); PROTHROMBIN TIME PATIENT 18.2 SEC (12.2-14.7)
[2018-09-21] MEDS ORDERED: LIDOCAINE PF 1% 2 ML AMP INJ ONE (10:17)
--- NOTE | 2018-09-21 10:28 | Pulmonary Procedures ---
Pulmonary Procedures Date of Procedure Date of Service: Sep 21, 2018 Bronch Bronchoscopy with RML bronchoalveolar lavage (BAL), bilateral bronchial washes were obtained.. Preop DX hemoptysis Postop DX: No active bleeding. Airways were clear once blood was lavaged and suctioned out. No endobronchial mass. Complications: none After informed consent obtained and formal time out pt was sedated using Fentanyl, propofol and Versed. Bronchoscope was advanced through the nare and vocal cords. 1% lidocaine was used to anesthetize leonardo, and left/right main stem bronchus. An anatomical tour was undertaken down to the segmental bronchi bilaterally. No endobronchial lesions noted. From the RML a bronchoalveolar lavage (BAL) was obtained. Pt tolerated procedure well. No complications noted. Stat CXR is pending. JUAN HESS DO Sep 21, 2018 10:28
--- NOTE | 2018-09-21 11:07 | Pulmonary Progress Note ---
Subjective Time Seen by a Provider: 05:00 Subjective/Events-last exam PT is now requiring 70% oxygen via Vapotherm.He is still coughing up blood. I discussed with pt the option of continuing to watch this or proceed with intubation and bronchoscopy. He wants to proceed with intubation and bronchoscopy. We called who also agrees with aggressive care. Sepsis Event Evaluation Height, Weight, BMI Height: 5'8.00" Weight: 195lbs. 2.0oz. 88.901762ll; 30.2 BMI Method:Stated Focused Exam Lactate Level 09/19/18 04:55: Lactic Acid Level 2.93*H 09/19/18 11:06: Lactic Acid Level 3.20*H 09/19/18 13:44: Lactic Acid Level 3.97*H Exam Exam Vital Signs Date Time Temp Pulse Resp B/P (MAP) Pulse Ox O2 Delivery O2 Flow Rate FiO2 09/21/18 10:50 60 17 100 100 09/21/18 10:00 61 14 108/58 (75) 97 Mechanical Ventilator 100.00 09/21/18 09:00 60 18 116/60 (78) 99 Mechanical Ventilator 100.00 09/21/18 08:13 70 23 98 100 09/21/18 08:00 63 15 118/71 (87) 99 Mechanical Ventilator 100.00 09/21/18 07:20 70 23 98 100 09/21/18 07:00 61 24 170/88 (115) 93 Vapotherm 70.00 30.00 09/21/18 07:00 61 09/21/18 06:00 60 20 179/85 (116) 92 Vapotherm 70.00 30.00 09/21/18 05:39 Vapotherm 70.00 30.00 09/21/18 05:00 61 26 174/83 (113) 93 Vapotherm 60.00 30.00 09/21/18 04:00 60 24 162/80 (107) 92 Vapotherm 60.00 30.00 09/21/18 04:00 Vapotherm 30.00 70 09/21/18 03:33 97.7 09/21/18 03:00 61 26 166/81 (109) 91 Vapotherm 70.00 30.00 09/21/18 02:02 98 Vapotherm 30.00 60 09/21/18 02:00 60 18 152/87 (108) 96 Vapotherm 70.00 30.00 09/21/18 01:00 60 25 158/88 (111) 91 Vapotherm 70.00 30.00 09/21/18 01:00 60 09/21/18 00:00 80 22 128/79 (95) 91 Vapotherm 70.00 30.00 09/21/18 00:00 98.0 09/21/18 00:00 Vapotherm 30.00 70 09/20/18 23:00 64 26 158/74 (102) 92 Vapotherm 70.00 30.00 09/20/18 22:29 98 Vapotherm 30.00 70 09/20/18 22:00 70 20 148/85 (106) 90 Vapotherm 80.00 30.00 09/20/18 21:00 63 26 169/92 (117) 93 Vapotherm 80.00 30.00 09/20/18 20:02 97.7 61 33 161/81 (107) 95 Vapotherm 80.00 30.00 09/20/18 20:00 62 28 161/81 (107) 93 Vapotherm 80.00 30.00 09/20/18 20:00 Vapotherm 30.00 70 09/20/18 19:30 97.9 09/20/18 19:06 94 Vapotherm 30.00 80 09/20/18 19:00 65 09/20/18 19:00 65 33 147/75 (99) 92 Vapotherm 80.00 30.00 09/20/18 18:00 61 18 144/69 (94) 91 Vapotherm 80.00 30.00 09/20/18 17:00 61 24 151/70 (97) 92 Vapotherm 80.00 30.00 09/20/18 16:08 92 Vapotherm 30.00 80 09/20/18 16:00 93 NIV Bilevel 55 09/20/18 16:00 60 25 132/76 (94) 96 Vapotherm 80.00 30.00 09/20/18 15:30 97.4 09/20/18 15:00 60 27 161/87 (111) 94 Vapotherm 80.00 30.00 09/20/18 14:00 60 32 142/71 (94) 96 Vapotherm 80.00 30.00 09/20/18 13:00 60 19 145/81 (102) 97 Vapotherm 80.00 30.00 09/20/18 12:41 63 09/20/18 12:00 61 27 151/78 (102) 96 Vapotherm 80.00 30.00 09/20/18 12:00 93 NIV Bilevel 55 09/20/18 11:30 97.2 I & O 09/21/18 07:00 Intake Total 2790 ml Output Total 2675 ml Balance 115 ml Height & Weight Height: 5'8.00" Weight: 195lbs. 2.0oz. 88.433996om; 30.2 BMI Method:Stated General Appearance: WD/WN, Moderate Distress HEENT: PERRL/EOMI, Pharynx Normal Neck: Full Range of Motion, Non Tender, Supple Respiratory: Chest Non Tender, Accessory Muscle Use, Crackles (IN BASES), Decreased Breath Sounds, Rhonci, Wheezing Cardiovascular: Normal Peripheral Pulses, Systolic Murmur, Irregularly Irregular Capillary Refill: Less Than 3 Seconds Gastrointestinal: normal bowel sounds, non tender, soft, no organomegaly, no pulsatile mass Extremity: Normal Capillary Refill, Normal Range of Motion, Non Tender, No Calf Tenderness, Pedal Edema (TRACE) Neurologic/Psychiatric: Alert, Oriented x3, No Motor/Sensory Deficits, Normal Mood/Affect, lombardi developer II-XII Norm as Tested Skin: Normal Color, Warm/Dry Lymphatic: No Adenopathy Results Lab Laboratory Tests 09/20/18 02:55 09/21/18 03:00 Assessment/Plan Assessment/Plan Acute respiratory failure - worsening -Vapotherm currently at 70% from 60% -Repeat BNP - pt may need lasix -Low threshold for intubation. If pt is intubated he will need bronchoscopy secondary to hemoptysis and pulmonary infiltrations. - will trial pt back to Vapotherm today -Check ABG and BNP -Decrease IVF to KVO Pulmonary hemorrhage - Pt still having hemoptysis - secondary to Eliquis -Last hospitalization I check ANCA, Anti-Glomerular BM, and GENE - they were negative -Stop Eliquis - echo shows EF 60-65% -monitor Hypokalemia, hypophos -Replace PNA with SOB and hypoxia -Check ABG -SVNs - Zosyn Metabolic lactic acidosis -Monitor -IVF - give a liter bolus DM -SSI was started last night -July need Levemir BRIDGER -Out pt JUAN Don DO Sep 21, 2018 11:07
--- NOTE | 2018-09-21 11:48 | Progress Note - Hospitalist ---
Subjective HPI/CC On Admission Date Seen by Provider: Sep 21, 2018 Time Seen by Provider: 11:00 Subjective/Events-last exam Patient chose intubation electively due to increased oxygen requirements and respiratory fatigue Updated at bedside Conferred with Dr. Mijares Reviewed meds and labs Patient sedated and comfortable Reviewed IV drips Focused Exam Lactate Level 09/19/18 04:55: Lactic Acid Level 2.93*H 09/19/18 11:06: Lactic Acid Level 3.20*H 09/19/18 13:44: Lactic Acid Level 3.97*H Objective Exam Vital Signs Vital Signs Date Time Temp Pulse Resp B/P (MAP) Pulse Ox O2 Delivery O2 Flow Rate FiO2 09/21/18 17:00 60 10 137/71 (93) 98 Mechanical Ventilator 40.00 09/21/18 16:00 96.2 09/21/18 16:00 40 Capillary Refill : Less Than 3 Seconds General Appearance: WD/WN, Chronically ill, Other (intubated) HEENT: PERRL/EOMI, Pharynx Normal Neck: Full Range of Motion, Non Tender, Supple Respiratory: Chest Non Tender, Accessory Muscle Use, Crackles (IN BASES), Decreased Breath Sounds, Rhonci, Wheezing Cardiovascular: Normal Peripheral Pulses, Systolic Murmur, Irregularly Irregular Gastrointestinal: Normal Bowel Sounds, No Organomegaly, No Pulsatile Mass, Non Tender, Soft Rectal: Deferred Back: Normal Inspection, No Vertebral Tenderness Extremity: Normal Capillary Refill, Normal Range of Motion, Non Tender, No Calf Tenderness, Pedal Edema (TRACE) Neurologic/Psychiatric: Other (sedated and intubated) Skin: Normal Color, Warm/Dry Lymphatic: No Adenopathy Results/Procedures Lab Laboratory Tests 09/21/18 03:00 Patient resulted labs reviewed. Assessment/Plan Assessment and Plan Assess & Plan/Chief Complaint Assessment: VDRF Recurrent pulmonary hemorrhage with hemoptysis PNEUMONIA ATRIAL FIBRILLATION HYPERTENSION HYPERLIPIDEMIA ULCERATIVE COLITIS GENERALIZED WEAKNESS INSOMNIA CHRONIC ANTICOAGULATION USE NOW DC OAC BPH Plan: Vent management Dr Mijares's expertise is appreciated Clinical Quality Measures DVT/VTE Risk/Contraindication: Risk Factor Score Per Nursin RFS Level Per Nursing on Admit: 4+=Very High KOBI ESTEBAN DO Sep 21, 2018 11:48
[2018-09-21] MEDS: PROPOFOL DRIP (ICU) 100 ML IV SCH ×2 (13:00→20:21)
[2018-09-21] MEDS: meTOprolol 5 MG/5 ML (LOPRESSOR) VIAL IV SCH ×4 (13:00→23:23)
[2018-09-21] MEDS: TAMSULOSIN 0.4 MG (FLOMAX) CAP PO SCH (18:31)
[2018-09-22] VITALS (32 sets, daily range): BP systolic 109–182; BP diastolic 55–99
[2018-09-22] MEDS: RT-ALBUTEROL/IPRATROPIUM 3 ML (DUONEB) VIAL INH SCH ×6 (02:55→22:04)
[2018-09-22] MEDS: PIPERACILLIN/TAZO 4.5 GM/NS 100 ML IV SCH ×6 (03:40→18:14)
[2018-09-22 03:44] LABS: BASOPHILS % (AUTO) 0 % (0-10); EOSINOPHILS % (AUTO) 0 % (0-10); HEMATOCRIT 32 % (40-54); HEMOGLOBIN 10.8 G/DL (13.3-17.7); LYMPHOCYTES # (AUTO) 0.4 X 10^3 (1.0-4.0); LYMPHOCYTES % (AUTO) 6 % (12-44); MEAN CORPUSCULAR HEMOGLOBIN 31 PG (25-34); MEAN CORPUSCULAR HGB CONC 34 G/DL (32-36); MEAN CORPUSCULAR VOLUME 92 FL (80-99); MEAN PLATELET VOLUME 9.8 FL (7.4-10.4); MONOCYTES # (AUTO) 0.2 X 10^3 (0.0-1.0); MONOCYTES % (AUTO) 3 % (0-12); NEUTROPHILS # (AUTO) 6.3 X 10^3 (1.8-7.8); NEUTROPHILS % (AUTO) 91 % (42-75); PLATELET COUNT 123 10^3/uL (130-400); RED CELL DISTRIBUTION WIDTH 14.3 % (10.0-14.5); WHITE BLOOD COUNT 6.9 10^3/uL (4.3-11.0)
[2018-09-22] MEDS: meTOprolol 5 MG/5 ML (LOPRESSOR) VIAL IV SCH ×6 (03:44→23:55)
[2018-09-22 03:45] LABS: ABG BASE EXCESS -0.7 MMOL/L (-2.5-2.5); ABG OXYGEN SATURATION 96 % (94-100); ABG PCO2 36 MMHG (35-45); ABG PH 7.43 (7.37-7.43); ABG PO2 69 MMHG (79-93); ABG TCO2 24.1 MMOL/L (21.0-31.0); ALLENS TEST POSITIVE; INSPIRED O2 30%; PATIENT TEMP 99.1; VENTILATOR YES
[2018-09-22 04:04] LABS: ALANINE AMINOTRANSFERASE 43 U/L (0-55); ALBUMIN 3.1 GM/DL (3.2-4.5); ALKALINE PHOSPHATASE 71 U/L (40-136); BILIRUBIN,TOTAL 0.5 MG/DL (0.1-1.0); BUN/CREATININE RATIO 17; CALCIUM 8.3 MG/DL (8.5-10.1); CARBON DIOXIDE 20 MMOL/L (21-32); CHLORIDE 107 MMOL/L (98-107); CREATININE SERUM 1.05 MG/DL (0.60-1.30); GFR ESTIMATED > 60; GLUCOSE 239 MG/DL (70-105); PHOSPHORUS 2.8 MG/DL (2.3-4.7); POTASSIUM 3.8 MMOL/L (3.6-5.0); SODIUM 141 MMOL/L (135-145); TOTAL PROTEIN 5.8 GM/DL (6.4-8.2)
[2018-09-22] MEDS ORDERED: POTASSIUM CHLORIDE INJ 20 MEQ in NS IV 1000 ML 1,000 ML IV SCH (04:32)
[2018-09-22] MEDS ORDERED: NS W/KCL 20 MEQ/L 1,000 ML IV ONE (04:40)
--- NOTE | 2018-09-22 04:44 | Pulmonary Progress Note ---
Subjective Time Seen by a Provider: 04:56 Subjective/Events-last exam Sedated on vent Sepsis Event Evaluation Height, Weight, BMI Height: 5'8.00" Weight: 195lbs. 2.0oz. 88.912164aq; 30.2 BMI Method:Stated Focused Exam Lactate Level 09/19/18 04:55: Lactic Acid Level 2.93*H 09/19/18 11:06: Lactic Acid Level 3.20*H 09/19/18 13:44: Lactic Acid Level 3.97*H Exam Exam Vital Signs Date Time Temp Pulse Resp B/P (MAP) Pulse Ox O2 Delivery O2 Flow Rate FiO2 09/22/18 04:00 62 13 155/75 (101) 95 Mechanical Ventilator 30.00 09/22/18 03:45 94 Mechanical Ventilator 30 09/22/18 03:25 99.1 Mechanical Ventilator 30.00 09/22/18 03:01 Mechanical Ventilator 30.00 09/22/18 03:00 60 12 151/68 (95) 98 Mechanical Ventilator 40.00 09/22/18 02:56 61 21 99 40 09/22/18 02:00 68 12 137/76 (96) 98 Mechanical Ventilator 40.00 09/22/18 01:00 60 09/22/18 01:00 82 12 141/63 (89) 98 Mechanical Ventilator 40.00 09/22/18 00:00 67 11 136/65 (88) 98 Mechanical Ventilator 40.00 09/21/18 23:30 98 Mechanical Ventilator 40 09/21/18 23:30 99.0 Mechanical Ventilator 40.00 09/21/18 23:00 87 10 125/69 (87) 98 Mechanical Ventilator 40.00 09/21/18 22:02 75 22 98 40 09/21/18 22:00 66 12 133/73 (93) 98 Mechanical Ventilator 40.00 09/21/18 21:45 97.3 09/21/18 21:00 62 10 148/77 (100) 97 Mechanical Ventilator 40.00 09/21/18 20:21 144/72 Mechanical Ventilator 40.00 09/21/18 20:00 60 13 144/72 (96) 97 Mechanical Ventilator 40.00 09/21/18 19:50 97 Mechanical Ventilator 40 09/21/18 19:30 Mechanical Ventilator 40.00 09/21/18 19:11 60 20 97 40 09/21/18 19:00 60 09/21/18 19:00 60 12 156/78 (104) 97 Mechanical Ventilator 40.00 09/21/18 18:00 60 11 156/76 (102) 96 Mechanical Ventilator 40.00 09/21/18 17:00 60 10 137/71 (93) 98 Mechanical Ventilator 40.00 09/21/18 16:00 96.2 09/21/18 16:00 94 Mechanical Ventilator 40 09/21/18 16:00 60 10 145/67 (93) 98 Mechanical Ventilator 40.00 09/21/18 15:14 60 17 98 60 09/21/18 15:00 60 11 154/83 (106) 98 Mechanical Ventilator 60.00 09/21/18 14:00 60 10 154/76 (102) 98 Mechanical Ventilator 60.00 09/21/18 13:00 60 11 141/77 (98) 98 Mechanical Ventilator 60.00 09/21/18 13:00 60 09/21/18 13:00 98.6 09/21/18 12:00 94 Mechanical Ventilator 40 09/21/18 12:00 60 10 137/70 (92) 97 Mechanical Ventilator 60.00 09/21/18 11:30 97.2 09/21/18 11:00 60 11 104/62 (76) 98 Mechanical Ventilator 60.00 09/21/18 10:50 60 17 100 100 09/21/18 10:00 61 14 108/58 (75) 97 Mechanical Ventilator 100.00 09/21/18 09:00 60 18 116/60 (78) 99 Mechanical Ventilator 100.00 09/21/18 08:13 70 23 98 100 09/21/18 08:00 63 15 118/71 (87) 99 Mechanical Ventilator 100.00 09/21/18 08:00 100 Mechanical Ventilator 100 09/21/18 07:30 98.3 100 Mechanical Ventilator 100.00 09/21/18 07:20 70 23 98 100 09/21/18 07:00 61 24 170/88 (115) 93 Vapotherm 70.00 30.00 09/21/18 07:00 98.3 09/21/18 07:00 61 09/21/18 06:00 60 20 179/85 (116) 92 Vapotherm 70.00 30.00 09/21/18 05:39 Vapotherm 70.00 30.00 09/21/18 05:00 61 26 174/83 (518) 93 Vapotherm 60.00 30.00 I & O 09/22/18 07:00 Intake Total 1050 ml Output Total 1550 ml Balance -500 ml Height & Weight Height: 5'8.00" Weight: 195lbs. 2.0oz. 88.381512kd; 30.2 BMI Method:Stated General Appearance: WD/WN, Chronically ill, Other (intubated) HEENT: PERRL/EOMI, Pharynx Normal Neck: Full Range of Motion, Non Tender, Supple Respiratory: Chest Non Tender, Accessory Muscle Use, Crackles (IN BASES), Decreased Breath Sounds, Rhonci, Wheezing Cardiovascular: Normal Peripheral Pulses, Systolic Murmur, Irregularly Irregular Capillary Refill: Less Than 3 Seconds Gastrointestinal: normal bowel sounds, non tender, soft, no organomegaly, no pulsatile mass Extremity: Normal Capillary Refill, Normal Range of Motion, Non Tender, No Calf Tenderness, Pedal Edema (TRACE) Neurologic/Psychiatric: Other (sedated and intubated) Skin: Normal Color, Warm/Dry Lymphatic: No Adenopathy Results Lab Laboratory Tests 09/21/18 03:00 09/22/18 03:33 Assessment/Plan Assessment/Plan Acute respiratory failure - worsening -Vent -Only scant bloody secretions with suctioning -Will plan on doing repeat bronch prior to extubation to ensure all blood is cleared out. -Anticipate extubation early this week. -Add pulmicare -Decrease IVF to 30cc/hr and add 20meq kcl to IVF -Change lasix to IV daily 40mg Pulmonary hemorrhage - Pt still having hemoptysis - secondary to Eliquis -Last hospitalization I check ANCA, Anti-Glomerular BM, and GENE - they were negative - echo shows EF 60-65% -monitor Hypokalemia -Replace PNA with SOB and hypoxia -Check ABG -SVNs - Zosyn -Cultures are negative thus far Metabolic lactic acidosis -Monitor DM -SSI may need to start Levemir BRIDGER -Out pt JUAN Don DO Sep 22, 2018 04:44
[2018-09-22] MEDS: POTASSIUM CL 10MEQ/50ML IVPB 50 ML IV SCH (04:52)
[2018-09-22] MEDS: MAGNESIUM 1 GM/100 ML IVPB 100 ML IV SCH (04:52)
[2018-09-22] MEDS: KCL 20 MEQ TAB (K-DUR) PO SCH (04:52)
[2018-09-22] MEDS: NS W/KCL 20 MEQ/L 1,000 ML IV SCH (04:52)
[2018-09-22] MEDS: methylPREDNISolone 40 MG/ML (Solu-MEDROL) VIAL IV SCH ×4 (05:44→23:55)
[2018-09-22] MEDS: inSUlin ASPART (NovoLOG) 1 UNIT/0.01 ML (CHARGE PER UNIT) SC SCH ×4 (05:44→23:56)
[2018-09-22] MEDS ORDERED: hydrALAZINE (APESOLINE) 20 MG/ML VIAL ONE (05:45)
[2018-09-22] MEDS: LACTOBACILLUS ACIDOPHILUS (PROBIOTIC) CAPSULE PO SCH ×2 (05:45→17:12)
[2018-09-22] MEDS: PROPOFOL DRIP (ICU) 100 ML IV SCH ×4 (05:53→22:54)
[2018-09-22] MEDS: hydrALAZINE (APESOLINE) 20 MG/ML VIAL IV PRN ×2 (05:57→17:14)
--- NOTE | 2018-09-22 08:30 | NUR ---
residual gastric content 20 ml
[2018-09-22] MEDS: PANTOPRAZOLE 40 MG (PROTONIX) VIAL IV SCH (08:59)
[2018-09-22] MEDS: KCL 20 MEQ POWDER FOR ORAL SOLUTION PO SCH (08:59)
[2018-09-22] MEDS: LOPERAMIDE 2 MG (IMODIUM) TABLET PO SCH ×2 (08:59→20:21)
[2018-09-22] MEDS: LORATADINE (CLARITIN) 10 MG TAB PO SCH (08:59)
[2018-09-22] MEDS ORDERED: FUROSEMIDE 40 MG/4 ML INJ (LASIX) IVP SCH (09:00)
--- NOTE | 2018-09-22 10:09 | Diagnostic Imaging Report ---
INDICATION: Ventilator patient. Pneumonia. COMPARISON: 09/21/2018 FINDINGS: Single frontal radiographic view of the chest was obtained and demonstrates indwelling endotracheal tube with tip below the clavicular heads and above the leonardo. Gastric tube is also noted, but its distal tip is obscured potentially from motion artifact. Sternotomy wires and left-sided AICD are also noted. Lungs continue to show diffuse mixed interstitial and alveolar infiltrates. Since the prior exam, alveolar component has improved. There is no large effusion or pneumothorax on either side. Cardiac silhouette remains mildly prominent. Osseous structures show no gross acute abnormalities. IMPRESSION: 1. Overall improved aeration, with persistent bilateral infiltrate appearing opacities. Pulmonary edema would also be within the differential. 2. Lines and tubes as above. Dictated by: Dictated on workstation # [id number]
[2018-09-22] MEDS: fentaNYL INJECTION 1,250 MCG in NORMAL SALINE 250 ML INJ PRN (11:09)
--- NOTE | 2018-09-22 11:23 | NUR ---
AT THIS TIME PATIENTS O2 SAT WAS 96% ON 30%, RT TRIED TO DECREASE O2 TO 21% BUT PATIENT STARTED TO DESAT AND REMAINED IN THE HIGH 80'S, SO RT INCREASED O2 BACK UP TO THE PREVIOUS 30%
--- NOTE | 2018-09-22 11:47 | Progress Note - Hospitalist ---
Subjective HPI/CC On Admission Date Seen by Provider: Sep 22, 2018 Time Seen by Provider: 12:15 Subjective/Events-last exam Patient still intubated We'll perform repeat bronchoscopy in the morning per Dr. Mijares Hopefully start weaning off ventilator on Sunday at bedside Focused Exam Lactate Level 09/19/18 13:44: Lactic Acid Level 3.97*H Objective Exam Vital Signs Vital Signs Date Time Temp Pulse Resp B/P (MAP) Pulse Ox O2 Delivery O2 Flow Rate FiO2 09/22/18 13:00 60 13 157/84 (108) 96 Mechanical Ventilator 30.00 09/22/18 11:16 30 09/22/18 03:25 99.1 Capillary Refill : Less Than 3 Seconds General Appearance: WD/WN, Chronically ill, Other (intubated) HEENT: PERRL/EOMI, Pharynx Normal Neck: Full Range of Motion, Non Tender, Supple Respiratory: Chest Non Tender, Accessory Muscle Use, Crackles (IN BASES), Decreased Breath Sounds, Rhonci, Wheezing Cardiovascular: Normal Peripheral Pulses, Systolic Murmur, Irregularly Irregular Gastrointestinal: Normal Bowel Sounds, No Organomegaly, No Pulsatile Mass, Non Tender, Soft Rectal: Deferred Back: Normal Inspection, No Vertebral Tenderness Extremity: Normal Capillary Refill, Normal Range of Motion, Non Tender, No Calf Tenderness, Pedal Edema (TRACE) Neurologic/Psychiatric: Other (sedated and intubated) Skin: Normal Color, Warm/Dry Lymphatic: No Adenopathy Results/Procedures Lab Laboratory Tests 09/22/18 03:33 Patient resulted labs reviewed. Assessment/Plan Assessment and Plan Assess & Plan/Chief Complaint Assessment: VDRF Recurrent pulmonary hemorrhage with hemoptysis PNEUMONIA ATRIAL FIBRILLATION HYPERTENSION HYPERLIPIDEMIA ULCERATIVE COLITIS GENERALIZED WEAKNESS INSOMNIA CHRONIC ANTICOAGULATION USE NOW DC OAC BPH Plan: Vent management Dr Mijares's expertise is appreciated Clinical Quality Measures DVT/VTE Risk/Contraindication: Risk Factor Score Per Nursin RFS Level Per Nursing on Admit: 4+=Very High KOBI ESTEBAN DO Sep 22, 2018 11:47
--- NOTE | 2018-09-22 14:30 | NUR ---
residual gastric content 15 ml
--- NOTE | 2018-09-22 16:33 | Progress Note - Cardiology ---
Cardiology SOAP Progress Note Subjective: Intubated, unable to communicate. by his bedside. Objective: I&O/Vital Signs 09/22/18 09/22/18 09/22/18 09/22/18 05:00 05:53 06:00 07:00 Pulse 64 65 72 Resp 12 12 13 B/P (MAP) 174/77 (109) 179/93 169/93 (118) 164/83 (110) Pulse Ox 95 95 94 O2 Delivery Mechanical Ventilator Mechanical Ventilator Mechanical Ventilator Mechanical Ventilator O2 Flow Rate 30.00 40.00 30.00 30.00 09/22/18 09/22/18 09/22/18 09/22/18 07:00 07:13 08:00 08:00 Pulse 74 71 60 Resp 19 11 B/P (MAP) 154/83 (106) Pulse Ox 94 98 94 O2 Delivery Mechanical Ventilator Mechanical Ventilator O2 Flow Rate 30.00 FiO2 30 30 09/22/18 09/22/18 09/22/18 09/22/18 09:00 09:00 09:14 10:00 Pulse 75 73 71 101 Resp 12 20 11 B/P (MAP) 171/86 (114) 157/83 (107) Pulse Ox 94 94 94 94 O2 Delivery Mechanical Ventilator Mechanical Ventilator Mechanical Ventilator O2 Flow Rate 30.00 30.00 30.00 FiO2 30 09/22/18 09/22/18 09/22/18 09/22/18 11:00 11:16 12:00 12:00 Pulse 101 74 69 Resp 25 19 11 B/P (MAP) 135/92 (106) 155/70 (98) Pulse Ox 95 96 95 94 O2 Delivery Mechanical Ventilator Mechanical Ventilator Mechanical Ventilator O2 Flow Rate 30.00 30.00 FiO2 30 30 09/22/18 09/22/18 09/22/18 09/22/18 12:54 13:00 14:00 14:58 Pulse 60 60 61 59 Resp 13 12 18 B/P (MAP) 157/84 (108) 177/84 (115) Pulse Ox 96 96 96 O2 Delivery Mechanical Ventilator Mechanical Ventilator O2 Flow Rate 30.00 30.00 FiO2 30 09/22/18 09/22/18 15:00 16:00 Pulse 60 60 Resp 15 13 B/P (MAP) 177/88 (117) 182/88 (119) Pulse Ox 96 96 O2 Delivery Mechanical Ventilator Mechanical Ventilator O2 Flow Rate 30.00 30.00 09/21/18 23:59 Intake Total 1020 ml Output Total 900 ml Balance 120 ml Weight (Pounds): 197 Weight (Ounces): 8.0 Weight (Calculated Kilograms): 89.302867 Constitutional: well-developed, well-nourished, other (on mech vent) Respiratory: No accessory muscle use, No respiratory distress; chest expansion is symmetric, chest is bilaterally symmetric, crackles (lower lobes; diminished), rhonchi (scattered over lg airways) Cardiovascular: regular rate-rhythm, S1 and S2, systolic murmur Gastrointestional: No tender; soft, round, audible bowel sounds Extremities: no lower extremity edema bilateral Neurologic/Psychiatric: other (on mech vent, not able to cooperate with a neuro exam) Skin: normal color, warm/dry; No rash on exposed areas, No ulcerations on exposed areas Results/Procedures: Labs Laboratory Tests 09/21/18 18:06: Glucometer 265H 09/21/18 23:22: Glucometer 267H 09/22/18 03:33: White Blood Count 6.9, Red Blood Count 3.50L, Hemoglobin 10.8L, Hematocrit 32L, Mean Corpuscular Volume 92, Mean Corpuscular Hemoglobin 31, Mean Corpuscular Hemoglobin Concent 34, Red Cell Distribution Width 14.3, Platelet Count 123L, Mean Platelet Volume 9.8, Neutrophils (%) (Auto) 91H, Lymphocytes (%) (Auto) 6L, Monocytes (%) (Auto) 3, Eosinophils (%) (Auto) 0, Basophils (%) (Auto) 0, Neutrophils # (Auto) 6.3, Lymphocytes # (Auto) 0.4L, Monocytes # (Auto) 0.2, Eosinophils # (Auto) 0.0, Basophils # (Auto) 0.0, Blood Gas Puncture Site RIGHT RADIAL, Blood Gas Patient Temperature 99.1, Arterial Blood pH 7.43, Arterial Blood Partial Pressure CO2 36, Arterial Blood Partial Pressure O2 69L, Arterial Blood HCO3 23, Arterial Blood Total CO2 24.1, Arterial Blood Oxygen Saturation 96, Arterial Blood Base Excess -0.7, Pranav Test POSITIVE, Blood Gas Ventilator Setting YES, Blood Gas Inspired Oxygen 30%, Sodium Level 141, Potassium Level 3.8, Chloride Level 107, Carbon Dioxide Level 20L, Anion Gap 14, Blood Urea Nitrogen 18, Creatinine 1.05, Estimat Glomerular Filtration Rate > 60, BUN/Creatinine Ratio 17, Glucose Level 239H, Calcium Level 8.3L, Corrected Calcium 9.0, Phosphorus Level 2.8, Magnesium Level 2.0, Total Bilirubin 0.5, Aspartate Amino Transf (AST/SGOT) 13, Alanine Aminotransferase (ALT/SGPT) 43, Alkaline Phosphatase 71, Total Protein 5.8L, Albumin 3.1L 09/22/18 11:58: Glucometer 208H Microbiology 09/18/18 Blood Culture - Preliminary, Resulted No growth 09/21/18 Mycobacterial Culture - Preliminary, Resulted A/P: Assessment: Pneumonia - management per Pulmonary/Medical services Hemoptysis and pulmonary hemorrhage necessitating discontinuation of Eliquis and aspirin Echo of 09/19/18: LVEF 60-65%, biatrial enlargement, mod MR, mild to mod TR, RVSP 45 mmHg 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 Cardiac cath from December 30, 2013 in which successful GAURI x 2, one to the proximal and one to the mid vessel LAD, was done. 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 Pacemaker currently in the VVIR mode, due to permanent atrial fib. The patient had a pulse generator change out on 12/18/2011. The device is functioning normally per last interrogation of August 2018 (DIMITRIOS estimate 10 months) History of ulcerative colitis, being managed by Dr. Parsons and Dr. Seymour Stroke prophylaxis with Eliquis - currently being held d/t hemoptysis Sleep apnea for which he is following with Dr Mijares - Bi-pap therapy Hyperlipidemia being treated with rosuvastatin. Mild carotid arterial disease that has been followed by Dr. Mcdaniel History of cholecystectomy. 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
[2018-09-22] MEDS: TAMSULOSIN 0.4 MG (FLOMAX) CAP PO SCH (17:12)
[2018-09-22] MEDS: DEXMEDETOMIDINE INJECTION 1,000 MCG in NS (IVPB) 250 ML IV PRN (17:12)
[2018-09-23] VITALS (30 sets, daily range): BP systolic 89–156; BP diastolic 47–85
[2018-09-23] MEDS: RT-ALBUTEROL/IPRATROPIUM 3 ML (DUONEB) VIAL INH SCH ×6 (02:53→21:15)
[2018-09-23] MEDS: PIPERACILLIN/TAZO 4.5 GM/NS 100 ML IV SCH ×6 (03:12→17:36)
[2018-09-23] MEDS: PROPOFOL DRIP (ICU) 100 ML IV SCH ×4 (03:13→17:38)
[2018-09-23 03:53] LABS: BASOPHILS % (AUTO) 0 % (0-10); EOSINOPHILS % (AUTO) 0 % (0-10); HEMATOCRIT 33 % (40-54); HEMOGLOBIN 10.9 G/DL (13.3-17.7); LYMPHOCYTES # (AUTO) 0.4 X 10^3 (1.0-4.0); LYMPHOCYTES % (AUTO) 8 % (12-44); MEAN CORPUSCULAR HEMOGLOBIN 31 PG (25-34); MEAN CORPUSCULAR HGB CONC 33 G/DL (32-36); MEAN CORPUSCULAR VOLUME 93 FL (80-99); MEAN PLATELET VOLUME 9.7 FL (7.4-10.4); MONOCYTES # (AUTO) 0.3 X 10^3 (0.0-1.0); MONOCYTES % (AUTO) 5 % (0-12); NEUTROPHILS # (AUTO) 4.5 X 10^3 (1.8-7.8); NEUTROPHILS % (AUTO) 87 % (42-75); PLATELET COUNT 140 10^3/uL (130-400); RED CELL DISTRIBUTION WIDTH 14.8 % (10.0-14.5); WHITE BLOOD COUNT 5.2 10^3/uL (4.3-11.0)
[2018-09-23 03:55] LABS: ABG BASE EXCESS 3.4 MMOL/L (-2.5-2.5); ABG OXYGEN SATURATION 94 % (94-100); ABG PCO2 34 MMHG (35-45); ABG PO2 57 MMHG (79-93)
[2018-09-23 03:56] LABS: ALLENS TEST POSITIVE; INSPIRED O2 30%; PATIENT TEMP 96; VENTILATOR YES
[2018-09-23] MEDS: meTOprolol 5 MG/5 ML (LOPRESSOR) VIAL IV SCH ×6 (04:02→23:49)
[2018-09-23 04:14] LABS: ALANINE AMINOTRANSFERASE 31 U/L (0-55); ALBUMIN 2.8 GM/DL (3.2-4.5); ALKALINE PHOSPHATASE 60 U/L (40-136); BILIRUBIN,TOTAL 0.6 MG/DL (0.1-1.0); BUN/CREATININE RATIO 25; CALCIUM 7.8 MG/DL (8.5-10.1); CARBON DIOXIDE 23 MMOL/L (21-32); CHLORIDE 105 MMOL/L (98-107); CREATININE SERUM 0.76 MG/DL (0.60-1.30); GFR ESTIMATED > 60; GLUCOSE 224 MG/DL (70-105); SODIUM 141 MMOL/L (135-145); TRIGLYCERIDES 126 MG/DL (<150)
[2018-09-23] MEDS: MAGNESIUM 1 GM/100 ML IVPB 100 ML IV SCH (04:19)
[2018-09-23] MEDS: POTASSIUM CL 10MEQ/50ML IVPB 50 ML IV SCH ×9 (04:19→11:23)
[2018-09-23] MEDS: KCL 20 MEQ TAB (K-DUR) PO SCH (04:20)
[2018-09-23] MEDS: NS W/KCL 20 MEQ/L 1,000 ML IV SCH ×2 (05:20→18:26)
[2018-09-23] MEDS: methylPREDNISolone 40 MG/ML (Solu-MEDROL) VIAL IV SCH ×4 (05:28→23:49)
[2018-09-23] MEDS: inSUlin ASPART (NovoLOG) 1 UNIT/0.01 ML (CHARGE PER UNIT) SC SCH ×4 (05:28→23:49)
--- NOTE | 2018-09-23 06:01 | Pulmonary Progress Note ---
Subjective Time Seen by a Provider: 06:00 Subjective/Events-last exam Sedated on vent Sepsis Event Evaluation Height, Weight, BMI Height: 5'8.00" Weight: 197lbs. 8.0oz. 89.040751wu; 30.2 BMI Method:Stated Exam Exam Vital Signs Date Time Temp Pulse Resp B/P (MAP) Pulse Ox O2 Delivery O2 Flow Rate FiO2 09/23/18 05:00 60 20 148/76 (100) 95 Mechanical Ventilator 30.00 09/23/18 04:00 60 20 147/75 (99) 94 Mechanical Ventilator 30.00 09/23/18 04:00 95 Mechanical Ventilator 30 09/23/18 04:00 96.0 09/23/18 03:13 60 150/75 09/23/18 03:00 60 20 150/75 (100) 94 Mechanical Ventilator 30.00 09/23/18 02:53 60 23 94 30 09/23/18 02:00 60 24 145/75 (98) 94 Mechanical Ventilator 30.00 09/23/18 01:00 60 20 135/70 (91) 93 Mechanical Ventilator 30.00 09/23/18 01:00 60 09/23/18 00:31 61 22 93 30 09/23/18 00:00 95 Mechanical Ventilator 30 09/23/18 00:00 96.8 09/23/18 00:00 65 20 147/78 (101) 91 Mechanical Ventilator 30.00 09/22/18 23:00 60 20 151/74 (99) 92 Mechanical Ventilator 30.00 09/22/18 22:54 96.8 63 21 156/78 93 Mechanical Ventilator 30.00 09/22/18 22:04 63 21 93 30 09/22/18 22:00 73 15 156/78 (104) 93 Mechanical Ventilator 30.00 09/22/18 21:00 60 16 132/66 (88) 94 Mechanical Ventilator 30.00 09/22/18 20:00 64 14 116/57 (76) 92 Mechanical Ventilator 30.00 09/22/18 20:00 96.8 Mechanical Ventilator 30.00 09/22/18 20:00 95 Mechanical Ventilator 30 09/22/18 19:00 72 09/22/18 19:00 69 12 119/60 (79) 94 Mechanical Ventilator 30.00 09/22/18 18:53 70 19 93 30 09/22/18 18:18 94 09/22/18 18:00 60 13 109/55 (73) 94 Mechanical Ventilator 30.00 09/22/18 17:00 60 13 181/91 (121) 96 Mechanical Ventilator 30.00 09/22/18 16:00 94 Mechanical Ventilator 30 09/22/18 16:00 60 13 182/88 (119) 96 Mechanical Ventilator 30.00 09/22/18 15:00 60 15 177/88 (117) 96 Mechanical Ventilator 30.00 09/22/18 14:58 59 18 96 30 09/22/18 14:00 61 12 177/84 (115) 96 Mechanical Ventilator 30.00 09/22/18 13:00 60 13 157/84 (108) 96 Mechanical Ventilator 30.00 09/22/18 12:54 60 09/22/18 12:00 94 Mechanical Ventilator 30 09/22/18 12:00 69 11 155/70 (98) 95 Mechanical Ventilator 30.00 09/22/18 11:16 74 19 96 30 09/22/18 11:00 101 25 135/92 (106) 95 Mechanical Ventilator 30.00 09/22/18 10:00 101 11 157/83 (107) 94 Mechanical Ventilator 30.00 09/22/18 09:14 71 20 94 30 09/22/18 09:00 73 12 171/86 (114) 94 Mechanical Ventilator 30.00 09/22/18 09:00 96 09/22/18 09:00 75 94 Mechanical Ventilator 30.00 09/22/18 08:00 94 Mechanical Ventilator 30 09/22/18 08:00 60 11 154/83 (106) 98 Mechanical Ventilator 30.00 09/22/18 07:13 71 19 94 30 09/22/18 07:00 74 09/22/18 07:00 72 13 164/83 (110) 94 Mechanical Ventilator 30.00 09/22/18 06:00 65 12 169/93 (118) 95 Mechanical Ventilator 30.00 I & O 09/23/18 07:00 Intake Total 370 ml Output Total 3785 ml Balance -3415 ml Height & Weight Height: 5'8.00" Weight: 197lbs. 8.0oz. 89.177486kn; 30.2 BMI Method:Stated General Appearance: WD/WN, Chronically ill, Other (intubated) HEENT: PERRL/EOMI, Pharynx Normal Neck: Full Range of Motion, Non Tender, Supple Respiratory: Chest Non Tender, Accessory Muscle Use, Crackles (IN BASES), De creased Breath Sounds Cardiovascular: Normal Peripheral Pulses, Systolic Murmur, Irregularly Irregular Capillary Refill: Less Than 3 Seconds Gastrointestinal: normal bowel sounds, non tender, soft, no organomegaly, no pulsatile mass Extremity: Normal Capillary Refill, Normal Range of Motion, Non Tender, No Calf Tenderness, Pedal Edema (TRACE) Neurologic/Psychiatric: Other (sedated and intubated) Skin: Normal Color, Warm/Dry Lymphatic: No Adenopathy Results Lab Laboratory Tests 09/22/18 03:33 09/23/18 03:45 Assessment/Plan Assessment/Plan Acute respiratory failure - worsening -Vent -Decrease Vt to 450. Repeat ABG in 1hr. -Only scant bloody secretions with suctioning -Will plan on doing repeat bronch tomorrow to ensure all blood is cleared out prior to weaning vent -Anticipate extubation early Sunday or Sunday. - pulmicare TF - increase to 30cc/hr -D IVF to 50cc/hr 20meq kcl to IVF -Hold lasix today Pulmonary hemorrhage - Pt still having hemoptysis - secondary to Eliquis -Last hospitalization I check ANCA, Anti-Glomerular BM, and GENE - they were negative - echo shows EF 60-65% -monitor Contraction alkalosis -Hold lasix Hypokalemia -Replace PNA with SOB and hypoxia -SVNs - Zosyn -Cultures are negative thus far Metabolic lactic acidosis - resolved -Monitor DM -SSI may need to start Levemir BRIDGER -Out pt JUAN Don DO Sep 23, 2018 06:01
--- NOTE | 2018-09-23 07:09 | Pulmonary Progress Note ---
Subjective Time Seen by a Provider: 07:09 Subjective/Events-last exam PT is sedated on vent. Sepsis Event Evaluation Height, Weight, BMI Height: 5'8.00" Weight: 220lbs. 8.0oz. 99.990556ts; 30.2 BMI Method:Stated Exam Exam Vital Signs Date Time Temp Pulse Resp B/P (MAP) Pulse Ox O2 Delivery O2 Flow Rate FiO2 09/23/18 06:00 61 20 137/69 (91) 92 Mechanical Ventilator 30.00 09/23/18 05:00 60 20 148/76 (100) 95 Mechanical Ventilator 30.00 09/23/18 04:00 60 20 147/75 (99) 94 Mechanical Ventilator 30.00 09/23/18 04:00 95 Mechanical Ventilator 30 09/23/18 04:00 96.0 09/23/18 03:13 60 150/75 09/23/18 03:00 60 20 150/75 (100) 94 Mechanical Ventilator 30.00 09/23/18 02:53 60 23 94 30 09/23/18 02:00 60 24 145/75 (98) 94 Mechanical Ventilator 30.00 09/23/18 01:00 60 20 135/70 (91) 93 Mechanical Ventilator 30.00 09/23/18 01:00 60 09/23/18 00:31 61 22 93 30 09/23/18 00:00 95 Mechanical Ventilator 30 09/23/18 00:00 96.8 09/23/18 00:00 65 20 147/78 (101) 91 Mechanical Ventilator 30.00 09/22/18 23:00 60 20 151/74 (99) 92 Mechanical Ventilator 30.00 09/22/18 22:54 96.8 63 21 156/78 93 Mechanical Ventilator 30.00 09/22/18 22:04 63 21 93 30 09/22/18 22:00 73 15 156/78 (104) 93 Mechanical Ventilator 30.00 09/22/18 21:00 60 16 132/66 (88) 94 Mechanical Ventilator 30.00 09/22/18 20:00 64 14 116/57 (76) 92 Mechanical Ventilator 30.00 09/22/18 20:00 96.8 Mechanical Ventilator 30.00 09/22/18 20:00 95 Mechanical Ventilator 30 09/22/18 19:00 72 09/22/18 19:00 69 12 119/60 (79) 94 Mechanical Ventilator 30.00 09/22/18 18:53 70 19 93 30 09/22/18 18:18 94 09/22/18 18:00 60 13 109/55 (73) 94 Mechanical Ventilator 30.00 09/22/18 17:00 60 13 181/91 (121) 96 Mechanical Ventilator 30.00 09/22/18 16:00 94 Mechanical Ventilator 30 09/22/18 16:00 60 13 182/88 (119) 96 Mechanical Ventilator 30.00 09/22/18 15:00 60 15 177/88 (117) 96 Mechanical Ventilator 30.00 09/22/18 14:58 59 18 96 30 09/22/18 14:00 61 12 177/84 (115) 96 Mechanical Ventilator 30.00 09/22/18 13:00 60 13 157/84 (108) 96 Mechanical Ventilator 30.00 09/22/18 12:54 60 09/22/18 12:00 94 Mechanical Ventilator 30 09/22/18 12:00 69 11 155/70 (98) 95 Mechanical Ventilator 30.00 09/22/18 11:16 74 19 96 30 09/22/18 11:00 101 25 135/92 (106) 95 Mechanical Ventilator 30.00 09/22/18 10:00 101 11 157/83 (107) 94 Mechanical Ventilator 30.00 09/22/18 09:14 71 20 94 30 09/22/18 09:00 73 12 171/86 (114) 94 Mechanical Ventilator 30.00 09/22/18 09:00 96 09/22/18 09:00 75 94 Mechanical Ventilator 30.00 09/22/18 08:00 94 Mechanical Ventilator 30 09/22/18 08:00 60 11 154/83 (106) 98 Mechanical Ventilator 30.00 09/22/18 07:13 71 19 94 30 I & O 09/23/18 07:00 Intake Total 560 ml Output Total 3935 ml Balance -3375 ml Height & Weight Height: 5'8.00" Weight: 220lbs. 8.0oz. 99.306079dk; 30.2 BMI Method:Stated General Appearance: WD/WN, Chronically ill, Other (intubated) HEENT: PERRL/EOMI, Pharynx Normal Neck: Full Range of Motion, Non Tender, Supple Respiratory: Chest Non Tender, Accessory Muscle Use, Crackles (IN BASES), Decreased Breath Sounds Cardiovascular: Normal Peripheral Pulses, Systolic Murmur, Irregularly Irregular Capillary Refill: Less Than 3 Seconds Gastrointestinal: normal bowel sounds, non tender, soft, no organomegaly, no pulsatile mass Extremity: Normal Capillary Refill, Normal Range of Motion, Non Tender, No Calf Tenderness, Pedal Edema (TRACE) Neurologic/Psychiatric: Other (sedated and intubated) Skin: Normal Color, Warm/Dry Lymphatic: No Adenopathy Results Lab Laboratory Tests 09/22/18 03:33 09/23/18 03:45 Assessment/Plan Assessment/Plan Acute respiratory failure - worsening -Vent -Decrease Vt to 450. Repeat ABG in 1hr. -Only scant bloody secretions with suctioning -Will plan on doing repeat bronch tomorrow to ensure all blood is cleared out prior to weaning vent -Anticipate extubation early Sunday or Sunday. - pulmicare TF - increase to 30cc/hr -D IVF to 50cc/hr 20meq kcl to IVF -Hold lasix today Pulmonary hemorrhage - Pt still having hemoptysis - secondary to Eliquis -Last hospitalization I check ANCA, Anti-Glomerular BM, and GENE - they were negative - echo shows EF 60-65% -monitor Contraction alkalosis -Hold lasix Hypokalemia -Replace PNA with SOB and hypoxia -SVNs - Zosyn -Cultures are negative thus far Metabolic lactic acidosis - resolved -Monitor DM -SSI may need to start Levemir BRIDGER -Out pt JUAN Don DO Sep 23, 2018 07:09
[2018-09-23] MEDS: LACTOBACILLUS ACIDOPHILUS (PROBIOTIC) CAPSULE PO SCH ×2 (07:10→17:10)
--- NOTE | 2018-09-23 07:52 | Diagnostic Imaging Report ---
EXAM: CHEST 1 VIEW, AP/PA ONLY INDICATION: Respiratory failure. Pneumonia. COMPARISON: Chest radiograph 09/22/2018. FINDINGS: Cardiomegaly. Diffuse interstitial and airspace opacities throughout both lungs are stable. No pleural effusion or pneumothorax is evident. Sternotomy with mediastinal markers. Cardiac pacer. ETT tip between the level of the clavicles and leonardo. IMPRESSION: Stable exam including diffuse interstitial and airspace opacities throughout both lungs. Support lines in stable position. Dictated by: Dictated on workstation # [id number]
--- NOTE | 2018-09-23 08:14 | Physical Therapy Progress Note ---
Therapy Progress Note Patient is currently sedated and on mechanical ventilator. PT to assess patient when medically stable and able to actively participate with skilled therapy. CHIDI HUANG PT Sep 23, 2018 08:14
[2018-09-23] MEDS: fentaNYL INJECTION 1,250 MCG in NORMAL SALINE 250 ML INJ PRN (08:18)
[2018-09-23] MEDS: LORATADINE (CLARITIN) 10 MG TAB PO SCH (08:24)
[2018-09-23] MEDS: LOPERAMIDE 2 MG (IMODIUM) TABLET PO SCH ×2 (08:24→21:06)
[2018-09-23] MEDS: PANTOPRAZOLE 40 MG (PROTONIX) VIAL IV SCH (08:24)
[2018-09-23] MEDS: KCL 20 MEQ POWDER FOR ORAL SOLUTION PO SCH (08:24)
--- NOTE | 2018-09-23 08:26 | Progress Note ---
Subjective Time Seen by a Provider: 08:24 Subjective/Events-last exam Patient on vent Patient sedated Objective Exam Vital Signs Date Time Temp Pulse Resp B/P (MAP) Pulse Ox O2 Delivery O2 Flow Rate FiO2 09/23/18 08:20 96.0 60 21 139/73 95 Mechanical Ventilator 30.00 09/23/18 07:28 60 21 95 30 09/23/18 06:00 61 20 137/69 (91) 92 Mechanical Ventilator 30.00 09/23/18 05:00 60 20 148/76 (100) 95 Mechanical Ventilator 30.00 09/23/18 04:00 60 20 147/75 (99) 94 Mechanical Ventilator 30.00 09/23/18 04:00 95 Mechanical Ventilator 30 09/23/18 04:00 96.0 09/23/18 03:13 60 150/75 09/23/18 03:00 60 20 150/75 (100) 94 Mechanical Ventilator 30.00 09/23/18 02:53 60 23 94 30 09/23/18 02:00 60 24 145/75 (98) 94 Mechanical Ventilator 30.00 09/23/18 01:00 60 20 135/70 (91) 93 Mechanical Ventilator 30.00 09/23/18 01:00 60 09/23/18 00:31 61 22 93 30 09/23/18 00:00 95 Mechanical Ventilator 30 09/23/18 00:00 96.8 09/23/18 00:00 65 20 147/78 (101) 91 Mechanical Ventilator 30.00 09/22/18 23:00 60 20 151/74 (99) 92 Mechanical Ventilator 30.00 09/22/18 22:54 96.8 63 21 156/78 93 Mechanical Ventilator 30.00 09/22/18 22:04 63 21 93 30 09/22/18 22:00 73 15 156/78 (104) 93 Mechanical Ventilator 30.00 09/22/18 21:00 60 16 132/66 (88) 94 Mechanical Ventilator 30.00 09/22/18 20:00 64 14 116/57 (76) 92 Mechanical Ventilator 30.00 09/22/18 20:00 96.8 Mechanical Ventilator 30.00 09/22/18 20:00 95 Mechanical Ventilator 30 09/22/18 19:00 72 09/22/18 19:00 69 12 119/60 (79) 94 Mechanical Ventilator 30.00 09/22/18 18:53 70 19 93 30 09/22/18 18:18 94 09/22/18 18:00 60 13 109/55 (73) 94 Mechanical Ventilator 30.00 09/22/18 17:00 60 13 181/91 (121) 96 Mechanical Ventilator 30.00 09/22/18 16:00 94 Mechanical Ventilator 30 09/22/18 16:00 60 13 182/88 (119) 96 Mechanical Ventilator 30.00 09/22/18 15:00 60 15 177/88 (117) 96 Mechanical Ventilator 30.00 09/22/18 14:58 59 18 96 30 09/22/18 14:00 61 12 177/84 (115) 96 Mechanical Ventilator 30.00 09/22/18 13:00 60 13 157/84 (108) 96 Mechanical Ventilator 30.00 09/22/18 12:54 60 09/22/18 12:00 94 Mechanical Ventilator 30 09/22/18 12:00 69 11 155/70 (98) 95 Mechanical Ventilator 30.00 09/22/18 11:16 74 19 96 30 09/22/18 11:00 101 25 135/92 (106) 95 Mechanical Ventilator 30.00 09/22/18 10:00 101 11 157/83 (107) 94 Mechanical Ventilator 30.00 09/22/18 09:14 71 20 94 30 09/22/18 09:00 73 12 171/86 (114) 94 Mechanical Ventilator 30.00 09/22/18 09:00 96 09/22/18 09:00 75 94 Mechanical Ventilator 30.00 I & O 09/23/18 07:00 Intake Total 560 ml Output Total 3935 ml Balance -3375 ml Capillary Refill : Less Than 3 Seconds General Appearance: No Apparent Distress, WD/WN, Other (Patient on vent) Neck: Normal Inspection Respiratory: No Accessory Muscle Use, No Respiratory Distress Cardiovascular: Regular Rate, Rhythm, No Murmur Gastrointestinal: non tender, soft Results Lab Laboratory Tests 09/23/18 03:45 Laboratory Tests 09/22/18 11:58: Glucometer 208H 09/22/18 17:10: Glucometer 179H 09/22/18 23:38: Glucometer 220H 09/23/18 03:45: White Blood Count 5.2, Red Blood Count 3.55L, Hemoglobin 10.9L, Hematocrit 33L, Mean Corpuscular Volume 93, Mean Corpuscular Hemoglobin 31, Mean Corpuscular Hemoglobin Concent 33, Red Cell Distribution Width 14.8H, Platelet Count 140, Mean Platelet Volume 9.7, Neutrophils (%) (Auto) 87H, Lymphocytes (%) (Auto) 8L, Monocytes (%) (Auto) 5, Eosinophils (%) (Auto) 0, Basophils (%) (Auto) 0, Neutrophils # (Auto) 4.5, Lymphocytes # (Auto) 0.4L, Monocytes # (Auto) 0.3, Eosinophils # (Auto) 0.0, Basophils # (Auto) 0.0, Blood Gas Puncture Site LEFT RADIAL, Blood Gas Patient Temperature 96, Arterial Blood pH 7.50H, Arterial Bloo d Partial Pressure CO2 34L, Arterial Blood Partial Pressure O2 57L, Arterial Blood HCO3 27, Arterial Blood Total CO2 28.0, Arterial Blood Oxygen Saturation 94, Arterial Blood Base Excess 3.4H, Pranav Test POSITIVE, Blood Gas Ventilator Setting YES, Blood Gas Inspired Oxygen 30%, Sodium Level 141, Potassium Level 3.0L, Chloride Level 105, Carbon Dioxide Level 23, Anion Gap 13, Blood Urea Nitrogen 19H, Creatinine 0.76, Estimat Glomerular Filtration Rate > 60, BUN/Creatinine Ratio 25, Glucose Level 224H, Calcium Level 7.8L, Corrected Calcium 8.8, Phosphorus Level 2.7, Magnesium Level 2.0, Total Bilirubin 0.6, Aspartate Amino Transf (AST/SGOT) 13, Alanine Aminotransferase (ALT/SGPT) 31, Alkaline Phosphatase 60, Total Protein 5.0L, Albumin 2.8L, Triglycerides Level 126 Microbiology 09/18/18 Blood Culture - Preliminary, Resulted No growth 09/21/18 Mycobacterial Culture - Preliminary, Resulted Assessment/Plan Assessment/Plan Assess & Plan/Chief Complaint Patient on vent. Acute respiratory failure. Pulmonary hemorrhage. Pneumonia. Short of breath. Hypoxia. Hemoptysis. Coronary artery disease Clinical Quality Measures DVT/VTE Risk/Contraindication: Risk Factor Score Per Nursin RFS Level Per Nursing on Admit: 4+=Very High VIMAL DE LA TORRE DO Sep 23, 2018 08:26
--- NOTE | 2018-09-23 10:15 | NUR ---
Pastoral care visit.
--- NOTE | 2018-09-23 10:41 | Occ Therapy Progress Note ---
Therapy Progress Note Order received, chart reviewed. Pt. currently sedated and on ventilator support. Will continue to monitor and evaluate pt. for skilled treatment when pt. medically stable. [id number] ANURAG HENRIQUEZ OT Sep 23, 2018 10:41
--- NOTE | 2018-09-23 14:49 | Progress Note - Cardiology ---
Cardiology SOAP Progress Note Subjective: Intubated, on mech vent, not able communicate Objective: I&O/Vital Signs 09/23/18 09/23/18 09/23/18 09/23/18 02:53 03:00 03:13 04:00 Temp 96.0 Pulse 60 60 60 Resp 23 20 B/P (MAP) 150/75 (100) 150/75 Pulse Ox 94 94 O2 Delivery Mechanical Ventilator O2 Flow Rate 30.00 FiO2 30 09/23/18 09/23/18 09/23/18 09/23/18 04:00 04:00 05:00 06:00 Pulse 60 60 61 Resp 20 20 20 B/P (MAP) 147/75 (99) 148/76 (100) 137/69 (91) Pulse Ox 95 94 95 92 O2 Delivery Mechanical Ventilator Mechanical Ventilator Mechanical Ventilator Mechanical Ventilator O2 Flow Rate 30.00 30.00 30.00 FiO2 30 09/23/18 09/23/18 09/23/18 09/23/18 07:00 07:00 07:00 07:28 Pulse 60 60 60 60 Resp 20 21 B/P (MAP) 138/72 (94) Pulse Ox 94 95 O2 Delivery Mechanical Ventilator O2 Flow Rate 30.00 FiO2 30 09/23/18 09/23/18 09/23/18 09/23/18 08:00 08:00 08:00 08:20 Temp 95.0 96.0 Pulse 60 60 Resp 20 21 B/P (MAP) 149/76 (100) 139/73 Pulse Ox 96 95 95 O2 Delivery Mechanical Ventilator Mechanical Ventilator Mechanical Ventilator O2 Flow Rate 30.00 30.00 FiO2 30 09/23/18 09/23/18 09/23/18 09/23/18 09:00 10:00 11:00 11:34 Pulse 60 62 60 58 Resp 17 14 15 19 B/P (MAP) 145/78 (100) 156/85 (108) 132/76 (94) Pulse Ox 96 96 98 98 O2 Delivery Mechanical Ventilator Mechanical Ventilator Mechanical Ventilator O2 Flow Rate 30.00 30.00 30.00 FiO2 30 09/23/18 09/23/18 09/23/18 09/23/18 12:00 12:00 12:00 12:44 Temp 96.2 Pulse 60 63 Resp 14 B/P (MAP) 116/63 (80) Pulse Ox 97 96 O2 Delivery Mechanical Ventilator Mechanical Ventilator O2 Flow Rate 30.00 FiO2 30 09/23/18 09/23/18 09/23/18 13:00 13:00 14:00 Pulse 60 59 60 Resp 14 14 B/P (MAP) 117/69 (85) 99/61 (74) Pulse Ox 98 95 O2 Delivery Mechanical Ventilator Mechanical Ventilator O2 Flow Rate 30.00 30.00 09/23/18 00:00 Intake Total 190 ml Output Total 2210 ml Balance -2020 ml Weight (Pounds): 220 Weight (Ounces): 8.0 Weight (Calculated Kilograms): 99.256637 Constitutional: well-developed, well-nourished, other (on mech vent) Respiratory: No accessory muscle use, No respiratory distress; chest expansion is symmetric, chest is bilaterally symmetric, crackles (lower lobes; diminished), rhonchi (scattered over lg airways) Cardiovascular: regular rate-rhythm, S1 and S2, systolic murmur Gastrointestional: No tender; soft, round, audible bowel sounds Extremities: no lower extremity edema bilateral Neurologic/Psychiatric: other (on mech vent, not able to cooperate with a neuro exam) Skin: normal color, warm/dry; No rash on exposed areas, No ulcerations on exposed areas Results/Procedures: Labs Laboratory Tests 09/22/18 17:10: Glucometer 179H 09/22/18 23:38: Glucometer 220H 09/23/18 03:45: White Blood Count 5.2, Red Blood Count 3.55L, Hemoglobin 10.9L, Hematocrit 33L, Mean Corpuscular Volume 93, Mean Corpuscular Hemoglobin 31, Mean Corpuscular Hemoglobin Concent 33, Red Cell Distribution Width 14.8H, Platelet Count 140, Mean Platelet Volume 9.7, Neutrophils (%) (Auto) 87H, Lymphocytes (%) (Auto) 8L, Monocytes (%) (Auto) 5, Eosinophils (%) (Auto) 0, Basophils (%) (Auto) 0, Neutrophils # (Auto) 4.5, Lymphocytes # (Auto) 0.4L, Monocytes # (Auto) 0.3, Eosinophils # (Auto) 0.0, Basophils # (Auto) 0.0, Blood Gas Puncture Site LEFT RADIAL, Blood Gas Patient Temperature 96, Arterial Blood pH 7.50H, Arterial Blood Partial Pressure CO2 34L, Arterial Blood Partial Pressure O2 57L, Arterial Blood HCO3 27, Arterial Blood Total CO2 28.0, Arterial Blood Oxygen Saturation 94, Arterial Blood Base Excess 3.4H, Pranav Test POSITIVE, Blood Gas Ventilator Setting YES, Blood Gas Inspired Oxygen 30%, Sodium Level 141, Potassium Level 3.0L, Chloride Level 105, Carbon Dioxide Level 23, Anion Gap 13, Blood Urea Nitrogen 19H, Creatinine 0.76, Estimat Glomerular Filtration Rate > 60, BUN/Creatinine Ratio 25, Glucose Level 224H, Calcium Level 7.8L, Corrected Calcium 8.8, Phosphorus Level 2.7, Magnesium Level 2.0, Total Bilirubin 0.6, Aspartate Amino Transf (AST/SGOT) 13, Alanine Aminotransferase (ALT/SGPT) 31, Alkaline Phosphatase 60, Total Protein 5.0L, Albumin 2.8L, Triglycerides Level 126 09/23/18 11:20: Glucometer 190H Microbiology 09/18/18 Blood Culture - Preliminary, Resulted No growth 09/21/18 Mycobacterial Culture - Preliminary, Resulted A/P: Assessment: Pneumonia - management per Pulmonary/Medical services Hemoptysis and pulmonary hemorrhage necessitating discontinuation of Eliquis and aspirin Echo of 09/19/18: LVEF 60-65%, biatrial enlargement, mod MR, mild to mod TR, RVSP 45 mmHg 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 Cardiac cath from December 30, 2013 in which successful GAURI x 2, one to the proximal and one to the mid vessel LAD, was done. 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 Pacemaker currently in the VVIR mode, due to permanent atrial fib. The patient had a pulse generator change out on 12/18/2011. The device is functioning normally per last interrogation of September 23, 2018 (DIMITRIOS estimate 11 months) History of ulcerative colitis, being managed by Dr. Parsons and Dr. Seymour Stroke prophylaxis with Eliquis - currently being held d/t hemoptysis Sleep apnea for which he is following with Dr Mijares - Bi-pap therapy Hyperlipidemia being treated with rosuvastatin. Mild carotid arterial disease that has been followed by Dr. Mcdaniel History of cholecystectomy. Impaired fasting glucose Elevated BMI of approx 30 S/p melanoma removal from the back in 2018, followed by Dr Parsons Plan: * Complex management issue * Continue current regimen * iv meds while on ventilator * Monitor lab closely * We interrogated pacemaker again today. DIMITRIOS is estimated to be 11 months from now based on today's interrogation TOSHA JUNIOR MD FACP FAC CCDS Sep 23, 2018 14:49
--- NOTE | 2018-09-23 15:00 | NUR ---
Follow up visit with pt's and family friend, Lucien. Pt's said acid dumpercira Altman visited her earlier today, which she found supportive. She shared that Sunday her may be extubated. She continues to maintain contact with friends and family for emotional and spiritual support.
[2018-09-23] MEDS: TAMSULOSIN 0.4 MG (FLOMAX) CAP PO SCH (17:10)
[2018-09-23] MEDS: DEXMEDETOMIDINE INJECTION 1,000 MCG in NS (IVPB) 250 ML IV PRN (17:35)
[2018-09-23] MEDS ORDERED: LACTATED RINGERS 1,000 ML IV ONE (17:44)
[2018-09-23] MEDS ORDERED: meTOprolol 5 MG/5 ML (LOPRESSOR) VIAL IV ONE (19:30)
[2018-09-24] VITALS (27 sets, daily range): BP systolic 116–170; BP diastolic 63–96
[2018-09-24] MEDS: PROPOFOL DRIP (ICU) 100 ML IV SCH ×2 (01:41→06:12)
[2018-09-24] MEDS: RT-ALBUTEROL/IPRATROPIUM 3 ML (DUONEB) VIAL INH SCH ×6 (02:25→22:50)
[2018-09-24] MEDS: fentaNYL INJECTION 1,250 MCG in NORMAL SALINE 250 ML INJ PRN (03:33)
[2018-09-24] MEDS: PIPERACILLIN/TAZO 4.5 GM/NS 100 ML IV SCH ×6 (03:34→16:31)
[2018-09-24] MEDS: meTOprolol 5 MG/5 ML (LOPRESSOR) VIAL IV SCH ×8 (03:34→23:49)
[2018-09-24 03:52] LABS: BASOPHILS % (AUTO) 0 % (0-10); EOSINOPHILS % (AUTO) 0 % (0-10); HEMATOCRIT 34 % (40-54); HEMOGLOBIN 11.2 G/DL (13.3-17.7); LYMPHOCYTES # (AUTO) 0.7 X 10^3 (1.0-4.0); LYMPHOCYTES % (AUTO) 12 % (12-44); MEAN CORPUSCULAR HEMOGLOBIN 31 PG (25-34); MEAN CORPUSCULAR HGB CONC 33 G/DL (32-36); MEAN CORPUSCULAR VOLUME 94 FL (80-99); MONOCYTES # (AUTO) 0.5 X 10^3 (0.0-1.0); MONOCYTES % (AUTO) 8 % (0-12); NEUTROPHILS # (AUTO) 4.8 X 10^3 (1.8-7.8); NEUTROPHILS % (AUTO) 81 % (42-75); PLATELET COUNT 162 10^3/uL (130-400); RED CELL DISTRIBUTION WIDTH 14.9 % (10.0-14.5)
[2018-09-24 03:53] LABS: ABG BASE EXCESS 0.4 MMOL/L (-2.5-2.5); ABG OXYGEN SATURATION 96 % (94-100); ABG PCO2 38 MMHG (35-45); ABG PH 7.42 (7.37-7.43); ABG PO2 71 MMHG (79-93); ABG TCO2 25.7 MMOL/L (21.0-31.0); ALLENS TEST POSTIVE; INSPIRED O2 30% VENT; PATIENT TEMP 97.6; VENTILATOR YES
[2018-09-24 04:13] LABS: ALANINE AMINOTRANSFERASE 29 U/L (0-55); ALBUMIN 2.7 GM/DL (3.2-4.5); ALKALINE PHOSPHATASE 54 U/L (40-136); BILIRUBIN,TOTAL 0.6 MG/DL (0.1-1.0); BUN/CREATININE RATIO 33; CARBON DIOXIDE 22 MMOL/L (21-32); CHLORIDE 107 MMOL/L (98-107); CREATININE SERUM 0.81 MG/DL (0.60-1.30); GFR ESTIMATED > 60; GLUCOSE 199 MG/DL (70-105); MAGNESIUM 2.2 MG/DL (1.8-2.4); PHOSPHORUS 2.8 MG/DL (2.3-4.7); POTASSIUM 5.4 MMOL/L (3.6-5.0); SODIUM 138 MMOL/L (135-145); TOTAL PROTEIN 5.1 GM/DL (6.4-8.2)
[2018-09-24] MEDS: NS W/KCL 20 MEQ/L 1,000 ML IV SCH (04:19)
[2018-09-24] MEDS: POTASSIUM CL 10MEQ/50ML IVPB 50 ML IV SCH (04:44)
[2018-09-24] MEDS: MAGNESIUM 1 GM/100 ML IVPB 100 ML IV SCH (04:44)
[2018-09-24] MEDS: KCL 20 MEQ TAB (K-DUR) PO SCH (04:45)
[2018-09-24] MEDS ORDERED: FUROSEMIDE 40 MG/4 ML INJ (LASIX) IVP ONE (05:15)
--- NOTE | 2018-09-24 05:16 | Pulmonary Progress Note ---
Subjective Time Seen by a Provider: 11:22 Subjective/Events-last exam appears to be doing better Sepsis Event Evaluation Height, Weight, BMI Height: 5'8.00" Weight: 220lbs. 8.0oz. 99.878074bf; 30.2 BMI Method:Stated Exam Exam Vital Signs Date Time Temp Pulse Resp B/P (MAP) Pulse Ox O2 Delivery O2 Flow Rate FiO2 09/24/18 05:00 74 14 135/63 (87) 95 Mechanical Ventilator 30.00 09/24/18 04:00 76 16 132/65 (87) 94 Mechanical Ventilator 30.00 09/24/18 04:00 99 Mechanical Ventilator 30 09/24/18 04:00 97.6 09/24/18 03:00 60 14 144/73 (96) 94 Mechanical Ventilator 30.00 09/24/18 02:25 60 17 93 30 09/24/18 02:00 61 13 160/82 (108) 97 Mechanical Ventilator 30.00 09/24/18 01:41 96.9 60 14 119/63 99 Mechanical Ventilator 30.00 09/24/18 01:00 60 09/24/18 01:00 60 15 134/69 (90) 95 Mechanical Ventilator 30.00 09/24/18 00:25 60 16 96 30 09/24/18 00:00 96.9 09/24/18 00:00 60 14 119/63 (81) 95 Mechanical Ventilator 30.00 09/24/18 00:00 99 Mechanical Ventilator 30 09/23/18 23:00 71 16 122/60 (80) 97 Mechanical Ventilator 30.00 09/23/18 22:00 61 16 102/55 (71) 95 Mechanical Ventilator 30.00 09/23/18 21:15 58 20 97 30 09/23/18 21:00 75 15 109/59 (76) 97 Mechanical Ventilator 30.00 09/23/18 20:00 98.0 09/23/18 20:00 71 15 102/51 (68) 96 Mechanical Ventilator 30.00 09/23/18 20:00 99 Mechanical Ventilator 30 09/23/18 19:00 93 12 136/60 (85) 97 Mechanical Ventilator 30.00 09/23/18 19:00 89 09/23/18 18:38 68 15 100 30 09/23/18 18:00 67 13 123/67 (85) 97 Mechanical Ventilator 30.00 09/23/18 17:38 73 119/61 09/23/18 17:00 60 16 89/47 (61) 98 Mechanical Ventilator 30.00 09/23/18 16:00 96.5 09/23/18 16:00 59 14 94/55 (68) 98 Mechanical Ventilator 30.00 09/23/18 16:00 99 Mechanical Ventilator 30 09/23/18 15:18 60 15 96 30 09/23/18 15:00 60 15 93/58 (70) 96 Mechanical Ventilator 30.00 09/23/18 14:00 60 14 99/61 (74) 95 Mechanical Ventilator 30.00 09/23/18 13:00 59 14 117/69 (85) 98 Mechanical Ventilator 30.00 09/23/18 13:00 60 09/23/18 12:44 63 09/23/18 12:00 96.2 09/23/18 12:00 96 Mechanical Ventilator 30 09/23/18 12:00 60 14 116/63 (80) 97 Mechanical Ventilator 30.00 09/23/18 11:34 58 19 98 30 09/23/18 11:00 60 15 132/76 (94) 98 Mechanical Ventilator 30.00 09/23/18 10:00 62 14 156/85 (108) 96 Mechanical Ventilator 30.00 09/23/18 09:00 60 17 145/78 (100) 96 Mechanical Ventilator 30.00 09/23/18 08:20 96.0 60 21 139/73 95 Mechanical Ventilator 30.00 09/23/18 08:00 95.0 09/23/18 08:00 60 20 149/76 (100) 95 Mechanical Ventilator 30.00 09/23/18 08:00 96 Mechanical Ventilator 30 09/23/18 07:28 60 21 95 30 09/23/18 07:00 60 09/23/18 07:00 60 20 138/72 (94) 94 Mechanical Ventilator 30.00 09/23/18 07:00 60 09/23/18 06:00 61 20 137/69 (91) 92 Mechanical Ventilator 30.00 I & O 09/24/18 07:00 Intake Total 2830 ml Output Total 575 ml Balance 2255 ml Height & Weight Height: 5'8.00" Weight: 220lbs. 8.0oz. 99.175187qh; 30.2 BMI Method:Stated General Appearance: No Apparent Distress, WD/WN, Other (Patient on vent) HEENT: PERRL/EOMI, Pharynx Normal Neck: Normal Inspection Respiratory: No Accessory Muscle Use, No Respiratory Distress Cardiovascular: Regular Rate, Rhythm, No Murmur Capillary Refill: Less Than 3 Seconds Gastrointestinal: non tender, soft Extremity: Normal Capillary Refill, Normal Range of Motion, Non Tender, No Calf Tenderness, Pedal Edema (TRACE) Neurologic/Psychiatric: Other (sedated and intubated) Skin: Normal Color, Warm/Dry Lymphatic: No Adenopathy Results Lab Laboratory Tests 09/23/18 03:45 09/24/18 03:45 Assessment/Plan Assessment/Plan Acute respiratory failure - worsening -Vent -Repeat bronchoscopy today then attempt vent weaning - pulmicare TF -Hold -D IVF to 50cc/hr 20meq kcl to IVF -- Change to NS at 75cc/hr Pulmonary hemorrhage - Pt still having hemoptysis - secondary to Eliquis -Last hospitalization I check ANCA, Anti-Glomerular BM, and GENE - they were negative - echo shows EF 60-65% -monitor Hyperkalemia -Give 40mg of Lasix x 1 Hypokalemia -Replace PNA with SOB and hypoxia -SVNs - Zosyn -Cultures are negative thus far Metabolic lactic acidosis - resolved -Monitor DM -SSI may need to start Levemir BRIDGER -Out pt JUAN Don DO Sep 24, 2018 05:16
[2018-09-24] MEDS: NS IV 1000 ML 1,000 ML IV SCH ×2 (05:27→23:20)
[2018-09-24] MEDS: methylPREDNISolone 40 MG/ML (Solu-MEDROL) VIAL IV SCH ×4 (05:35→23:49)
[2018-09-24] MEDS: inSUlin ASPART (NovoLOG) 1 UNIT/0.01 ML (CHARGE PER UNIT) SC SCH ×3 (05:38→16:46)
[2018-09-24] MEDS ORDERED: MIDAZOLAM 5 MG/5 ML (VERSED) VIAL ONE (06:12)
--- NOTE | 2018-09-24 06:15 | NUR ---
versed 4 mg given iv prior to bronch. 1 mg wasted with jeffery steinberg
--- NOTE | 2018-09-24 07:26 | Progress Note ---
Subjective Time Seen by a Provider: 07:24 Subjective/Events-last exam Patient on ventilator. Patient had bronchoscopy today which will better. Patient may be taken off ventilator tomorrow. Patient doing okay Objective Exam Vital Signs Date Time Temp Pulse Resp B/P (MAP) Pulse Ox O2 Delivery O2 Flow Rate FiO2 09/24/18 06:12 60 135/71 09/24/18 06:00 62 14 135/71 (92) 95 Mechanical Ventilator 30.00 09/24/18 05:00 74 14 135/63 (87) 95 Mechanical Ventilator 30.00 09/24/18 04:00 76 16 132/65 (87) 94 Mechanical Ventilator 30.00 09/24/18 04:00 99 Mechanical Ventilator 30 09/24/18 04:00 97.6 09/24/18 03:00 60 14 144/73 (96) 94 Mechanical Ventilator 30.00 09/24/18 02:25 60 17 93 30 09/24/18 02:00 61 13 160/82 (108) 97 Mechanical Ventilator 30.00 09/24/18 01:41 96.9 60 14 119/63 99 Mechanical Ventilator 30.00 09/24/18 01:00 60 09/24/18 01:00 60 15 134/69 (90) 95 Mechanical Ventilator 30.00 09/24/18 00:25 60 16 96 30 09/24/18 00:00 96.9 09/24/18 00:00 60 14 119/63 (81) 95 Mechanical Ventilator 30.00 09/24/18 00:00 99 Mechanical Ventilator 30 09/23/18 23:00 71 16 122/60 (80) 97 Mechanical Ventilator 30.00 09/23/18 22:00 61 16 102/55 (71) 95 Mechanical Ventilator 30.00 09/23/18 21:15 58 20 97 30 09/23/18 21:00 75 15 109/59 (76) 97 Mechanical Ventilator 30.00 09/23/18 20:00 98.0 09/23/18 20:00 71 15 102/51 (68) 96 Mechanical Ventilator 30.00 09/23/18 20:00 99 Mechanical Ventilator 30 09/23/18 19:00 93 12 136/60 (85) 97 Mechanical Ventilator 30.00 09/23/18 19:00 89 09/23/18 18:38 68 15 100 30 09/23/18 18:00 67 13 123/67 (85) 97 Mechanical Ventilator 30.00 09/23/18 17:38 73 119/61 09/23/18 17:00 60 16 89/47 (61) 98 Mechanical Ventilator 30.00 09/23/18 16:00 96.5 09/23/18 16:00 59 14 94/55 (68) 98 Mechanical Ventilator 30.00 09/23/18 16:00 99 Mechanical Ventilator 30 09/23/18 15:18 60 15 96 30 09/23/18 15:00 60 15 93/58 (70) 96 Mechanical Ventilator 30.00 09/23/18 14:00 60 14 99/61 (74) 95 Mechanical Ventilator 30.00 09/23/18 13:00 59 14 117/69 (85) 98 Mechanical Ventilator 30.00 09/23/18 13:00 60 09/23/18 12:44 63 09/23/18 12:00 96.2 09/23/18 12:00 96 Mechanical Ventilator 30 09/23/18 12:00 60 14 116/63 (80) 97 Mechanical Ventilator 30.00 09/23/18 11:34 58 19 98 30 09/23/18 11:00 60 15 132/76 (94) 98 Mechanical Ventilator 30.00 09/23/18 10:00 62 14 156/85 (108) 96 Mechanical Ventilator 30.00 09/23/18 09:00 60 17 145/78 (100) 96 Mechanical Ventilator 30.00 09/23/18 08:20 96.0 60 21 139/73 95 Mechanical Ventilator 30.00 09/23/18 08:00 95.0 09/23/18 08:00 60 20 149/76 (100) 95 Mechanical Ventilator 30.00 09/23/18 08:00 96 Mechanical Ventilator 30 09/23/18 07:28 60 21 95 30 I & O 09/24/18 07:00 Intake Total 2980 ml Output Total 800 ml Balance 2180 ml Capillary Refill : Less Than 3 Seconds General Appearance: No Apparent Distress, WD/WN Neck: Normal Inspection Respiratory: No Accessory Muscle Use, No Respiratory Distress, Decreased Breath Sounds Cardiovascular: No Murmur Gastrointestinal: non tender, soft Results Lab Laboratory Tests 09/24/18 03:45 Laboratory Tests 09/23/18 11:20: Glucometer 190H 09/23/18 17:29: Glucometer 185H 09/23/18 23:33: Glucometer 153H 09/24/18 03:45: White Blood Count 6.0, Red Blood Count 3.62L, Hemoglobin 11.2L, Hematocrit 34L, Mean Corpuscular Volume 94, Mean Corpuscular Hemoglobin 31, Mean Corpuscular Hemoglobin Concent 33, Red Cell Distribution Width 14.9H, Platelet Count 162, Mean Platelet Volume 10.0, Neutrophils (%) (Auto) 81H, Lymphocytes (%) (Auto) 12, Monocytes (%) (Auto) 8, Eosinophils (%) (Auto) 0, Basophils (%) (Auto) 0, Neutrophils # (Auto) 4.8, Lymphocytes # (Auto) 0.7L, Monocytes # (Auto) 0.5, Eosinophils # (Auto) 0.0, Basophils # (Auto) 0.0, Blood Gas Puncture Site LEFT RADIAL, Blood Gas Patient Temperature 97.6, Arterial Blood pH 7.42, Arterial Blood Partial Pressure CO2 38, Arterial Blood Partial Pressure O2 71L, Arterial Blood HCO3 25, Arterial Blood Total CO2 25.7, Arterial Blood Oxygen Saturation 96, Arterial Blood Base Excess 0.4, Pranav Test POSTIVE, Blood Gas Ventilator Setting YES, Blood Gas Inspired Oxygen 30% VENT, Sodium Level 138, Potassium Level 5.4H, Chloride Level 107, Carbon Dioxide Level 22, Anion Gap 9, Blood Urea Nitrogen 27H, Creatinine 0.81, Estimat Glomerular Filtration Rate > 60, BUN/Creatinine Ratio 33, Glucose Level 199H, Calcium Level 8.0L, Corrected Calcium 9.0, Phosphorus Level 2.8, Magnesium Level 2.2, Total Bilirubin 0.6, Aspartate Amino Transf (AST/SGOT) 15, Alanine Aminotransferase (ALT/SGPT) 29, Alkaline Phosphatase 54, Total Protein 5.1L, Albumin 2.7L Microbiology 09/18/18 Blood Culture - Final, Complete No growth 09/21/18 Mycobacterial Culture - Preliminary, Resulted Assessment/Plan Assessment/Plan Assess & Plan/Chief Complaint Patient on vent. Acute respiratory failure. Pulmonary hemorrhage. Pneumonia. Short of breath. Hypoxia. Hemoptysis. Coronary artery disease. . 09/24/18. Pneumonia. Hemoptysis. A. fib history. Diabetes. Hypoxia Coronary artery disease Clinical Quality Measures DVT/VTE Risk/Contraindication: Risk Factor Score Per Nursin RFS Level Per Nursing on Admit: 4+=Very High VIMAL DE LA TORRE DO Sep 24, 2018 07:26
[2018-09-24] MEDS: LACTOBACILLUS ACIDOPHILUS (PROBIOTIC) CAPSULE PO SCH ×2 (07:46→15:18)
[2018-09-24] MEDS: PANTOPRAZOLE 40 MG (PROTONIX) VIAL IV SCH (07:46)
[2018-09-24] MEDS: LOPERAMIDE 2 MG (IMODIUM) TABLET PO SCH ×2 (07:47→21:05)
--- NOTE | 2018-09-24 08:28 | Physical Therapy Progress Note ---
Therapy Progress Note Patient remains on mechanical ventilator. PT will continue to monitor patient statue and evaluate when he is able to actively participate with PT. CHIDI HUAGN PT Sep 24, 2018 08:27
[2018-09-24] MEDS: LORATADINE (CLARITIN) 10 MG TAB PO SCH (08:31)
[2018-09-24 08:46] LABS: ABG BASE EXCESS 0.7 MMOL/L (-2.5-2.5); ABG OXYGEN SATURATION 98 % (94-100); ABG PCO2 34 MMHG (35-45); ABG PH 7.46 (7.37-7.43); ABG PO2 80 MMHG (79-93); ABG TCO2 25.4 MMOL/L (21.0-31.0)
[2018-09-24 08:48] LABS: ALLENS TEST YES-POS; INSPIRED O2 30
[2018-09-24 08:49] LABS: PATIENT TEMP 96.6; VENTILATOR YES
--- NOTE | 2018-09-24 08:57 | Pulmonary Procedures ---
Pulmonary Procedures Date of Procedure Date of Service: Sep 24, 2018 Bronch Bronchoscopy with RML bronchoalveolar lavage (BAL), bilateral bronchial washes. Preop DX Hemoptysis Postop DX: same - Much improved C/W previous bronch. Complications: none After informed consent obtained and formal time out pt was sedated using Fentanyl and Versed. Bronchoscope was advanced through the nare and vocal cords. 1% lidocaine was used to anesthetize leonardo, and left/right main stem bronchus. An anatomical tour was undertaken down to the segmental bronchi bilaterally. No endobronchial lesions noted. RML bronchoalveolar lavage (BAL), bilateral bronchial washes. were obtained. Pt tolerated procedure well. No complications noted. Stat CXR is pending. JUAN HESS DO Sep 24, 2018 08:57
--- NOTE | 2018-09-24 09:21 | Diagnostic Imaging Report ---
INDICATION: Pneumonia. TECHNIQUE: Single view chest at 4:21 AM. CORRELATION STUDY: 09/23/2018. FINDINGS: Post sternotomy and coronary artery bypass changes. Endotracheal and gastric tubes remain in place. Heart size is enlarged and the mediastinum prominent. There is presence of pulmonary vascular congestion and perihilar edema appearing slightly increased from the prior study. Parenchymal densities in both lung mendoza likely reflect pulmonary edema as well. IMPRESSION: Findings compatible with likely congestive heart failure. The severity of edema appears increased from the prior study. Dictated by: Dictated on workstation # [id number]
--- NOTE | 2018-09-24 09:50 | Progress Note - Cardiology ---
Cardiology SOAP Progress Note Subjective: Remains intubated. Follows commands. Moving extremities. Spouse and brother at the bedside. Plan to extubate today. Objective: I&O/Vital Signs 09/24/18 09/24/18 09/24/18 09/24/18 05:00 06:00 06:12 07:00 Pulse 74 62 60 67 Resp 14 14 12 B/P (MAP) 135/63 (87) 135/71 (92) 135/71 116/63 (80) Pulse Ox 95 95 95 O2 Delivery Mechanical Ventilator Mechanical Ventilator Mechanical Ventilator O2 Flow Rate 30.00 30.00 30.00 09/24/18 09/24/18 09/24/18 09/24/18 07:00 07:37 08:00 08:00 Temp 96.6 Pulse 61 61 60 Resp 8 7 B/P (MAP) 121/68 (85) Pulse Ox 96 96 O2 Delivery Mechanical Ventilator O2 Flow Rate 30.00 FiO2 30 09/24/18 09/24/18 09/24/18 09/24/18 08:00 09:00 10:00 11:00 Pulse 60 63 64 Resp 24 11 15 B/P (MAP) 143/78 (99) 146/73 (97) 133/78 (96) Pulse Ox 97 97 98 94 O2 Delivery Mechanical Ventilator Mechanical Ventilator Mechanical Ventilator Vapotherm O2 Flow Rate 30.00 30.00 30.00 15.00 FiO2 30 09/24/18 09/24/18 09/24/18 09/24/18 11:03 12:00 12:00 12:00 Temp 96.2 Pulse 75 Resp 17 B/P (MAP) 131/96 (108) Pulse Ox 94 95 96 O2 Delivery Vapotherm Vapotherm Vapotherm O2 Flow Rate 15.00 15.00 30.00 15.00 FiO2 30 30 09/24/18 09/24/18 09/24/18 09/24/18 12:11 13:00 14:00 14:36 Pulse 64 65 64 Resp 20 19 B/P (MAP) 155/84 (107) 151/73 (99) Pulse Ox 94 94 95 O2 Delivery Vapotherm Vapotherm Vapotherm O2 Flow Rate 30.00 30.00 15.00 15.00 15.00 FiO2 30 09/24/18 09/24/18 15:00 16:00 Pulse 65 59 Resp 17 15 B/P (MAP) 149/74 (99) 147/80 (102) Pulse Ox 94 93 O2 Delivery Vapotherm Vapotherm O2 Flow Rate 30.00 30.00 15.00 15.00 09/24/18 00:00 Intake Total 2532 ml Output Total 300 ml Balance 2232 ml Weight (Pounds): 219 Weight (Ounces): 8.0 Weight (Calculated Kilograms): 99.500085 Constitutional: well-developed, well-nourished, other (on mech vent) Respiratory: No accessory muscle use, No respiratory distress; chest expansion is symmetric, chest is bilaterally symmetric, crackles (lower lobes; diminished), rhonchi (scattered over lg airways) Cardiovascular: regular rate-rhythm, S1 and S2, systolic murmur Gastrointestional: No tender; soft, round, audible bowel sounds Extremities: swelling (mod bilat LE swelling) Neurologic/Psychiatric: other (on mech vent, not able to cooperate with a neuro exam) Skin: normal color, warm/dry; No rash on exposed areas, No ulcerations on ex posed areas Results/Procedures: Labs Laboratory Tests 09/23/18 17:29: Glucometer 185H 09/23/18 23:33: Glucometer 153H 09/24/18 03:45: White Blood Count 6.0, Red Blood Count 3.62L, Hemoglobin 11.2L, Hematocrit 34L, Mean Corpuscular Volume 94, Mean Corpuscular Hemoglobin 31, Mean Corpuscular Hemoglobin Concent 33, Red Cell Distribution Width 14.9H, Platelet Count 162, Mean Platelet Volume 10.0, Neutrophils (%) (Auto) 81H, Lymphocytes (%) (Auto) 12, Monocytes (%) (Auto) 8, Eosinophils (%) (Auto) 0, Basophils (%) (Auto) 0, Neutrophils # (Auto) 4.8, Lymphocytes # (Auto) 0.7L, Monocytes # (Auto) 0.5, Eosinophils # (Auto) 0.0, Basophils # (Auto) 0.0, Blood Gas Puncture Site LEFT RADIAL, Blood Gas Patient Temperature 97.6, Arterial Blood pH 7.42, Arterial Blood Partial Pressure CO2 38, Arterial Blood Partial Pressure O2 71L, Arterial Blood HCO3 25, Arterial Blood Total CO2 25.7, Arterial Blood Oxygen Saturation 96, Arterial Blood Base Excess 0.4, Pranav Test POSTIVE, Blood Gas Ventilator Setting YES, Blood Gas Inspired Oxygen 30% VENT, Sodium Level 138, Potassium Level 5.4H, Chloride Level 107, Carbon Dioxide Level 22, Anion Gap 9, Blood Urea Nitrogen 27H, Creatinine 0.81, Estimat Glomerular Filtration Rate > 60, BUN/Creatinine Ratio 33, Glucose Level 199H, Calcium Level 8.0L, Corrected Calcium 9.0, Phosphorus Level 2.8, Magnesium Level 2.2, Total Bilirubin 0.6, Aspartate Amino Transf (AST/SGOT) 15, Alanine Aminotransferase (ALT/SGPT) 29, Alkaline Phosphatase 54, Total Protein 5.1L, Albumin 2.7L 09/24/18 08:35: Blood Gas Puncture Site R RAD, Blood Gas Patient Temperature 96.6, Arterial B lood pH 7.46H, Arterial Blood Partial Pressure CO2 34L, Arterial Blood Partial Pressure O2 80, Arterial Blood HCO3 24, Arterial Blood Total CO2 25.4, Arterial Blood Oxygen Saturation 98, Arterial Blood Base Excess 0.7, Pranav Test YES-POS, Blood Gas Ventilator Setting YES, Blood Gas Inspired Oxygen 30 09/24/18 11:47: Glucometer 200H Microbiology 09/18/18 Blood Culture - Final, Complete No growth 09/21/18 Mycobacterial Culture - Preliminary, Resulted Procedures NAME: YEHUDA LAW [facility] REC#: [id number] PT STATUS: ADM IN : 1940 PHYSICIAN: JUAN MIJARES DO ADMIT DATE: 09/18/18/ICU Draft Date of Exam:09/24/18 CHEST 1 VIEW, AP/PA ONLY INDICATION: Pneumonia. TECHNIQUE: Single view chest at 4:21 AM. CORRELATION STUDY: 09/23/2018. FINDINGS: Post sternotomy and coronary artery bypass changes. Endotracheal and gastric tubes remain in place. Heart size is enlarged and the mediastinum prominent. There is presence of pulmonary vascular congestion and perihilar edema appearing slightly increased from the prior study. Parenchymal densities in both lung law likely reflect pulmonary edema as well. IMPRESSION: Findings compatible with likely congestive heart failure. The severity of edema appears increased from the prior study. Dictated on workstation # [id number] Dict: 09/24/18 [id number] Trans: 09/24/18 0920 [id number] Interpreted by: PIYUSH COLLIER DO Electronically signed by: A/P: Assessment: Pneumonia - management per Pulmonary/Medical services Hemoptysis and pulmonary hemorrhage necessitating discontinuation of Eliquis and aspirin Echo of 09/19/18: LVEF 60-65%, biatrial enlargement, mod MR, mild to mod TR, RVSP 45 mmHg 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 Cardiac cath from December 30, 2013 in which successful GAURI x 2, one to the proximal and one to the mid vessel LAD, was done. 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 Pacemaker currently in the VVIR mode, due to permanent atrial fib. The patient had a pulse generator change out on 12/18/2011. The device is functioning normally per last interrogation of September 23, 2018 (DIMITRIOS estimate 11 months) History of ulcerative colitis, being managed by Dr. Parsons and Dr. Seymour Stroke prophylaxis with Eliquis - currently being held d/t hemoptysis Sleep apnea for which he is following with Dr Mijares - Bi-pap therapy Hyperlipidemia being treated with rosuvastatin. Mild carotid arterial disease that has been followed by Dr. Mcdaniel History of cholecystectomy. Impaired fasting glucose Elevated BMI of approx 30 S/p melanoma removal from the back in 2018, followed by Dr Parsons Plan: * Complex management issue * Continue current regimen * iv meds while on ventilator * Monitor lab closely * We interrogated pacemaker again today. DIMITRIOS is estimated to be 11 months from now based on today's interrogation * S/P bronch by Dr. Mijares today - plan is to extubate this morning * IV Lasix given Physician Assessment Physician Assessment Please see my separate note of the same date VIET CHRISTIAN [facility] Sep 24, 2018 09:50 TOSHA JUNIOR MD FACP [facility] Sep 24, 2018 16:53
[2018-09-24] MEDS ORDERED: LIDOCAINE JELLY 2% 6 ML SYRINGE MM ONE (10:46)
[2018-09-24] MEDS ORDERED: LIDOCAINE PF 1% 2 ML AMP IJ ONE (10:46)
--- NOTE | 2018-09-24 11:40 | NUR ---
[facility] requesting current clinical information. Patient continues to be sedated on the vent; therefore, authorization request cancelled. A new auth request to be completed once patient is extubated and medically stable.
--- NOTE | 2018-09-24 14:21 | Occupational Therapy Eval ---
OT Evaluation-General/PLF Medical Diagnosis Admission Date Sep 18, 2018 at 13:37 Medical Diagnosis: Pulmonary hemorrhage, pneumonia Onset Date: Sep 18, 2018 Therapy Diagnosis Therapy Diagnosis: Weakness Height/Weight Height (Feet): 5 Height (Inches): 8.00 Weight (Pounds): 219 Weight (Ounces): 8.0 Precautions Precautions/Isolations: Fall Prevention, Standard Precautions Safety Interventions: Reorient-PRN Weight Bear Status Weight Bearing Restriction: Weight Bearing/Tolerated Referral Physician: Dr. Mijares Referral Reason: Activity Tolerance, Self Care, Evaluation/Treatment, Strengthening/ROM Medical History Pertinent Medical History: CABG, CAD, COPD, Heart Failure, HTN, [place] Current History Pt. was pt. in hospital and went home. Came back with worsened pulmonary hemorrhage and pneumonia. Pt. has been on ventilator support and sedated. Extubated today. Reviewed History: Yes Social History Home: Single Level Current Living Status: Spouse ADL-Prior Level of Function Therapy Code Descriptions/Definitions Functional [place] Measure: 0=Not Assessed/NA 4=Minimal Assistance 1=Total Assistance 5=Supervision or Setup 2=Maximal Assistance 6=Modified [place] 3=Moderate Assistance 7=Complete [place] Therapy Quality Codes: 6 Independent with activity with or without an assistive device 5 Patient requires set up or clean up by helper. Patient completes activity by themselves 4 Supervision or touching assist (CGA). [place] provide cues , steadying assist 3 The helper provides less than half the effort to complete the activity 2 The helper provides more than half the effort to complete the activity 1 Dependent. The helper does all the effort to complete an activity 7 Patient refused to complete or attempt activity 9 The patient did not perform the activity before the current illness or injury 88 Not attempted due to Medical conditions or safety concerns Functional Abilities and Goals: Independent: Patient completed the activities by him/herself, with or without an assistive device, with no assistance from a helper. Needed Some Help: Patient needed partial assistance from another person to complete activities. Dependent: A helper completed the activities for the patient. Unknown: Not Applicable: ADL PLOF Comments Pt. was fully independent prior to illness. Self Care: Independent Functional Cognition: Independent OT Current Status Subjective Pt. does not report pain, but states that he is leaning to his right and is uncomfortable. Appearance Pt. in bed. Has been extubated for just over an hour. Nursing okays this therapist to work with pt. at tolerance level. Spouse in room. Pt. c ommunicating well. Mental Status/Objective Patient Orientation: Person Attachments: IV, Oxygen, Telemetry Current Hand Dominance: Right ADL-Treatment Therapy Code Descriptions/Definitions Functional [place] Measure: 0=Not Assessed/NA 4=Minimal Assistance 1=Total Assistance 5=Supervision or Setup 2=Maximal Assistance 6=Modified [place] 3=Moderate Assistance 7=Complete [place] Therapy Quality Codes: 6 Independent with activity with or without an assistive device 5 Patient requires set up or clean up by helper. Patient completes activity by themselves 4 Supervision or touching assist (CGA). [place] provide cues , steadying assist 3 The helper provides less than half the effort to complete the activity 2 The helper provides more than half the effort to complete the activity 1 Dependent. The helper does all the effort to complete an activity 7 Patient refused to complete or attempt activity 9 The patient did not perform the activity before the current illness or injury 88 Not attempted due to Medical conditions or safety concerns Transfers (B, C, W/C) (FIM): 1 Pt. recognized this therapist from previous hospitalization. Pt. agreeable to work with OT. OT placed bed in chair position and removed positioning pillows. Encouraged pt. to move himself as much as he could. This was limited. Encouraged pt. to wash face and brush hair. Pt. able to do this somewhat, but requires assistance to do it well. Completed bilateral AROM exercises x 10 reps to 90 degrees for shoulder flexion. Pt. reports that hands feel heavy and "tingly." Pt. is able to flex/extend bilateral hands WFL. Pt. agrees to sit on side of bed. Transferred with max assist supine-sit. Sat in front of pt. with sheet around him to keep him upright. Pt. able to hold this position himself at times, but other times would begin to lean forward or to his right. Very weak. Pt. able to sit on side of bed approximately 25 minutes. Able to verbalize to OT and to . Reported that he was tired and requested to lay back down. Required dependent assist x 2 for sit-supine, and positioning in bed. All needs met in room. Education OT Patient Education: Correct positioning, Exercise program, Instructions to caregiver, Modified ADL techniques, Progress toward Goal/Update tx plan, Purpose of tx/functional activities, Reviewed precautions, Rehab process, Transfer techniques Teaching Recipient: Patient, Significant Other Teaching Methods: Demonstration, Discussion Response to Teaching: Verbalize Understanding, Return Demonstration OT Short Term Goals Short Term Goals Time Frame: Oct 08, 2018 Eating(FIM): 4 Grooming(FIM): 4 Bathing(FIM): 4 Upper Body Dressing(FIM): 5 Lower Body Dressing(FIM): 3 Toileting(FIM): 4 Transfers (B,C,W/C) (FIM): 3 Toilet/Commode Transfer(FIM): 3 Additional Short Term Goals: 1-Demonstrate ADL Tasks, 2-Verbalize Understanding, 3-ImproveStrength/[place] 1=Demonstrate adherence to instructed precautions during ADL tasks. 2=Patient will verbalize/demonstrate understanding of assistive devices/modifications for ADL. 3=Patient will improve strength/tolerance for activity to enable patient to perform ADL's. OT Half-Way Goals Half-Way Goals Time Frame: Oct 22, 2018 Eating (FIM): 6 Grooming(FIM): 6 Bathing(FIM): 5 Upper Body Dressing(FIM): 5 Lower Body Dressing(FIM): 5 Toileting(FIM): 5 Transfers (B,C,W/C) (FIM): 5 Toilet/Commode Transfer(FIM): 5 Shower Transfer(FIM): 5 Additional Goals: 1-Demonstrate ADL Tasks, 2-Verbalize Understanding, 3- ImproveStrength/[place] 1=Demonstrate adherence to instructed precautions during ADL tasks. 2=Patient will verbalize/demonstrate understanding of assistive devices/modifications for ADL. 3=Patient will improve strength/tolerance for activity to enable patient to perform ADL's. OT Education/Plan Problem List/Assessment Assessment: Decreased Activ Tolerance, Decreased UE Strength, Dependent Transfers, Edema, Impaired Bed Mobility, Impaired Cognition, Impaired Funct Balance, Impaired I ADL's, Impaired Self-Care Skills, Restricted Funct UE ROM Discharge Recommendations Plan/Recommendations: Continue POC Therapy D/C Recommendations: Acute Rehab Comment Pt. would benefit from Acute rehab stay to increase all ADL skills and functional independence for safe return home. Would benefit when medically stable. Treatment Plan/Plan of Care Treatment,Training & Education: Yes Patient would benefit from OT for education, treatment and training to promote independence in ADL's, mobility, safety and/or upper extremity function for ADL's. Plan of Care: ADL Retraining, Caregiver Training, Functional Mobility, UE Funct Exercise/Act Treatment Duration: Oct 22, 2018 Frequency: 5 times per week Estimated Hrs Per Day: .5 hour per day Agreement: Yes Rehab Potential: Fair Time/GCodes Start Time: 11:30 Stop Time: 12:15 Total Time Billed (hr/min): 45 Billed Treatment Time 1, EVH x 15minutes, FA x 30minutes ANURAG HENRIQUEZ OT Sep 24, 2018 14:21
[2018-09-24] MEDS: TAMSULOSIN 0.4 MG (FLOMAX) CAP PO SCH (16:31)
--- NOTE | 2018-09-24 16:57 | Progress Note - Cardiology ---
Cardiology SOAP Progress Note Subjective: Came off vent at approx 10:30 am today Currently not reporting shortness of breath or palp or chest pain Has gen malaise Objective: I&O/Vital Signs 09/24/18 09/24/18 09/24/18 09/24/18 05:00 06:00 06:12 07:00 Pulse 74 62 60 67 Resp 14 14 12 B/P (MAP) 135/63 (87) 135/71 (92) 135/71 116/63 (80) Pulse Ox 95 95 95 O2 Delivery Mechanical Ventilator Mechanical Ventilator Mechanical Ventilator O2 Flow Rate 30.00 30.00 30.00 09/24/18 09/24/18 09/24/18 09/24/18 07:00 07:37 08:00 08:00 Temp 96.6 Pulse 61 61 60 Resp 8 7 B/P (MAP) 121/68 (85) Pulse Ox 96 96 O2 Delivery Mechanical Ventilator O2 Flow Rate 30.00 FiO2 30 09/24/18 09/24/18 09/24/18 09/24/18 08:00 09:00 10:00 11:00 Pulse 60 63 64 Resp 24 11 15 B/P (MAP) 143/78 (99) 146/73 (97) 133/78 (96) Pulse Ox 97 97 98 94 O2 Delivery Mechanical Ventilator Mechanical Ventilator Mechanical Ventilator Vapotherm O2 Flow Rate 30.00 30.00 30.00 15.00 FiO2 30 09/24/18 09/24/18 09/24/18 09/24/18 11:03 12:00 12:00 12:00 Temp 96.2 Pulse 75 Resp 17 B/P (MAP) 131/96 (108) Pulse Ox 94 95 96 O2 Delivery Vapotherm Vapotherm Vapotherm O2 Flow Rate 15.00 15.00 30.00 15.00 FiO2 30 30 09/24/18 09/24/18 09/24/18 09/24/18 12:11 13:00 14:00 14:36 Pulse 64 65 64 Resp 20 19 B/P (MAP) 155/84 (107) 151/73 (99) Pulse Ox 94 94 95 O2 Delivery Vapotherm Vapotherm Vapotherm O2 Flow Rate 30.00 30.00 15.00 15.00 15.00 FiO2 30 09/24/18 09/24/18 15:00 16:00 Pulse 65 59 Resp 17 15 B/P (MAP) 149/74 (99) 147/80 (102) Pulse Ox 94 93 O2 Delivery Vapotherm Vapotherm O2 Flow Rate 30.00 30.00 15.00 15.00 09/24/18 00:00 Intake Total 2532 ml Output Total 300 ml Balance 2232 ml Weight (Pounds): 219 Weight (Ounces): 8.0 Weight (Calculated Kilograms): 99.099050 Constitutional: AAO x 3, well-developed, well-nourished Respiratory: No accessory muscle use, No respiratory distress; chest expansion is symmetric, chest is bilaterally symmetric, crackles (lower lobes; diminished), rhonchi (scattered over lg airways) Cardiovascular: regular rate-rhythm, S1 and S2, systolic murmur Gastrointestional: No tender; soft, round, audible bowel sounds Extremities: swelling (mod bilat LE swelling) Neurologic/Psychiatric: other (on mech vent, not able to cooperate with a neuro exam) Skin: normal color, warm/dry; No rash on exposed areas, No ulcerations on exposed areas Results/Procedures: Labs Laboratory Tests 09/23/18 17:29: Glucometer 185H 09/23/18 23:33: Glucometer 153H 09/24/18 03:45: White Blood Count 6.0, Red Blood Count 3.62L, Hemoglobin 11.2L, Hematocrit 34L, Mean Corpuscular Volume 94, Mean Corpuscular Hemoglobin 31, Mean Corpuscular Hemoglobin Concent 33, Red Cell Distribution Width 14.9H, Platelet Count 162, Mean Platelet Volume 10.0, Neutrophils (%) (Auto) 81H, Lymphocytes (%) (Auto) 12, Monocytes (%) (Auto) 8, Eosinophils (%) (Auto) 0, Basophils (%) (Auto) 0, Neutrophils # (Auto) 4.8, Lymphocytes # (Auto) 0.7L, Monocytes # (Auto) 0.5, Eosinophils # (Auto) 0.0, Basophils # (Auto) 0.0, Blood Gas Puncture Site LEFT RADIAL, Blood Gas Patient Temperature 97.6, Arterial Blood pH 7.42, Arterial Blood Partial Pressure CO2 38, Arterial Blood Partial Pressure O2 71L, Arterial Blood HCO3 25, Arterial Blood Total CO2 25.7, Arterial Blood Oxygen Saturation 9 6, Arterial Blood Base Excess 0.4, Pranav Test POSTIVE, Blood Gas Ventilator Setting YES, Blood Gas Inspired Oxygen 30% VENT, Sodium Level 138, Potassium Level 5.4H, Chloride Level 107, Carbon Dioxide Level 22, Anion Gap 9, Blood Urea Nitrogen 27H, Creatinine 0.81, Estimat Glomerular Filtration Rate > 60, BUN/Creatinine Ratio 33, Glucose Level 199H, Calcium Level 8.0L, Corrected Calcium 9.0, Phosphorus Level 2.8, Magnesium Level 2.2, Total Bilirubin 0.6, Aspartate Amino Transf (AST/SGOT) 15, Alanine Aminotransferase (ALT/SGPT) 29, Alkaline Phosphatase 54, Total Protein 5.1L, Albumin 2.7L 09/24/18 08:35: Blood Gas Puncture Site R RAD, Blood Gas Patient Temperature 96.6, Arterial Blood pH 7.46H, Arterial Blood Partial Pressure CO2 34L, Arterial Blood Partial Pressure O2 80, Arterial Blood HCO3 24, Arterial Blood Total CO2 25.4, Arterial Blood Oxygen Saturation 98, Arterial Blood Base Excess 0.7, Pranav Test YES-POS, Blood Gas Ventilator Setting YES, Blood Gas Inspired Oxygen 30 09/24/18 11:47: Glucometer 200H Microbiology 09/18/18 Blood Culture - Final, Complete No growth 09/21/18 Mycobacterial Culture - Preliminary, Resulted Laboratory Tests 09/23/18 03:45 09/24/18 03:45 A/P: Assessment: Pneumonia - management per Pulmonary/Medical services Hemoptysis and pulmonary hemorrhage necessitating discontinuation of Eliquis and aspirin Echo of 09/19/18: LVEF 60-65%, biatrial enlargement, mod MR, mild to mod TR, RVSP 45 mmHg 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 Cardiac cath from December 30, 2013 in which successful GAURI x 2, one to the proximal and one to the mid vessel LAD, was done. 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 Pacemaker currently in the VVIR mode, due to permanent atrial fib. The patient had a pulse generator change out on 12/18/2011. The device is functioning normally per last interrogation of September 23, 2018 (DIMITRIOS estimate 11 months) History of ulcerative colitis, being managed by Dr. Parsons and Dr. Seymour Stroke prophylaxis with Eliquis - currently being held d/t hemoptysis Sleep apnea for which he is following with Dr Mijares - Bi-pap therapy Hyperlipidemia being treated with rosuvastatin. Mild carotid arterial disease that has been followed by Dr. Mcdaniel History of cholecystectomy. 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
[2018-09-25] VITALS (15 sets, daily range): BP systolic 135–186; BP diastolic 27–106
[2018-09-25] MEDS: inSUlin ASPART (NovoLOG) 1 UNIT/0.01 ML (CHARGE PER UNIT) SC SCH ×4 (00:04→18:03)
[2018-09-25] MEDS: RT-ALBUTEROL/IPRATROPIUM 3 ML (DUONEB) VIAL INH SCH ×6 (03:15→22:53)
[2018-09-25] MEDS: PIPERACILLIN/TAZO 4.5 GM/NS 100 ML IV SCH ×2 (03:17)
[2018-09-25] MEDS: meTOprolol 5 MG/5 ML (LOPRESSOR) VIAL IV SCH ×7 (03:19→21:53)
[2018-09-25 03:32] LABS: BASOPHILS % (AUTO) 0 % (0-10); EOSINOPHILS % (AUTO) 0 % (0-10); HEMATOCRIT 33 % (40-54); HEMOGLOBIN 10.9 G/DL (13.3-17.7); LYMPHOCYTES # (AUTO) 0.8 X 10^3 (1.0-4.0); LYMPHOCYTES % (AUTO) 11 % (12-44); MEAN CORPUSCULAR HEMOGLOBIN 30 PG (25-34); MEAN CORPUSCULAR HGB CONC 33 G/DL (32-36); MEAN CORPUSCULAR VOLUME 92 FL (80-99); MONOCYTES # (AUTO) 0.5 X 10^3 (0.0-1.0); MONOCYTES % (AUTO) 6 % (0-12); NEUTROPHILS # (AUTO) 6.1 X 10^3 (1.8-7.8); NEUTROPHILS % (AUTO) 82 % (42-75); PLATELET COUNT 213 10^3/uL (130-400); RED CELL DISTRIBUTION WIDTH 15.2 % (10.0-14.5); WHITE BLOOD COUNT 7.4 10^3/uL (4.3-11.0)
[2018-09-25 04:00] LABS: ALANINE AMINOTRANSFERASE 31 U/L (0-55); ALBUMIN 2.6 GM/DL (3.2-4.5); ALKALINE PHOSPHATASE 57 U/L (40-136); BILIRUBIN,TOTAL 0.8 MG/DL (0.1-1.0); BUN/CREATININE RATIO 40; CARBON DIOXIDE 22 MMOL/L (21-32); CHLORIDE 106 MMOL/L (98-107); CREATININE SERUM 0.83 MG/DL (0.60-1.30); GFR ESTIMATED > 60; GLUCOSE 171 MG/DL (70-105); MAGNESIUM 2.1 MG/DL (1.8-2.4); PHOSPHORUS 3.1 MG/DL (2.3-4.7); POTASSIUM 4.2 MMOL/L (3.6-5.0); SODIUM 138 MMOL/L (135-145); TOTAL PROTEIN 4.9 GM/DL (6.4-8.2)
--- NOTE | 2018-09-25 04:47 | NUR ---
175 mls of fentanyl in cadd pump wasted at this time with giovanna tseinberg as a witness.
--- NOTE | 2018-09-25 05:15 | Pulmonary Progress Note ---
Subjective Time Seen by a Provider: 05:21 Subjective/Events-last exam No complications noted. Sepsis Event Evaluation Height, Weight, BMI Height: 5'8.00" Weight: 219lbs. 8.0oz. 99.227620bp; 30.2 BMI Method:Stated Exam Exam Vital Signs Date Time Temp Pulse Resp B/P (MAP) Pulse Ox O2 Delivery O2 Flow Rate FiO2 09/25/18 05:00 60 16 141/67 (91) 92 Vapotherm 30.00 15.00 09/25/18 04:00 92 Vapotherm 15.00 30 09/25/18 04:00 64 21 140/106 (117) 92 Vapotherm 30.00 15.00 09/25/18 03:15 92 Vapotherm 15.00 30 09/25/18 03:00 60 11 151/72 (98) 92 Vapotherm 30.00 15.00 09/25/18 02:00 60 21 150/70 (96) 93 Vapotherm 30.00 15.00 09/25/18 01:00 60 09/25/18 01:00 60 17 143/76 (98) 94 Vapotherm 30.00 15.00 09/25/18 00:00 95 Vapotherm 15.00 30 09/25/18 00:00 60 11 151/72 (98) 93 Vapotherm 30.00 15.00 09/24/18 23:00 62 18 147/81 (103) 95 Vapotherm 30.00 15.00 09/24/18 22:50 94 Vapotherm 15.00 30 09/24/18 22:00 61 13 144/71 (95) 94 Vapotherm 30.00 15.00 09/24/18 21:00 72 20 170/76 (107) 93 Vapotherm 30.00 15.00 09/24/18 20:00 95 Vapotherm 15.00 30 09/24/18 20:00 70 15 163/76 (105) 93 Vapotherm 30.00 15.00 09/24/18 20:00 97.2 09/24/18 19:43 92 Vapotherm 15.00 30 09/24/18 19:00 64 14 149/74 (99) 93 Vapotherm 30.00 15.00 09/24/18 19:00 63 6/25/19 18:00 61 16 148/75 (99) 92 Vapotherm 30.00 15.00 09/24/18 17:00 61 15 152/73 (99) 94 Vapotherm 30.00 15.00 09/24/18 16:00 59 15 147/80 (102) 93 Vapotherm 30.00 15.00 09/24/18 16:00 97.3 09/24/18 16:00 95 Vapotherm 15.00 30 09/24/18 15:00 65 17 149/74 (99) 94 Vapotherm 30.00 15.00 09/24/18 14:36 95 Vapotherm 15.00 30 09/24/18 14:00 64 19 151/73 (99) 94 Vapotherm 30.00 15.00 09/24/18 13:00 65 20 155/84 (107) 94 Vapotherm 30.00 15.00 09/24/18 12:11 64 09/24/18 12:00 75 17 131/96 (108) 96 Vapotherm 30.00 15.00 09/24/18 12:00 95 Vapotherm 15.00 30 09/24/18 12:00 96.2 09/24/18 11:03 94 Vapotherm 15.00 30 09/24/18 11:00 64 15 133/78 (96) 94 Vapotherm 30.00 15.00 09/24/18 10:00 63 11 146/73 (97) 98 Mechanical Ventilator 30.00 09/24/18 09:00 60 24 143/78 (99) 97 Mechanical Ventilator 30.00 09/24/18 08:00 97 Mechanical Ventilator 30 09/24/18 08:00 60 7 121/68 (85) 96 Mechanical Ventilator 30.00 09/24/18 08:00 96.6 09/24/18 07:37 61 8 96 30 09/24/18 07:00 61 09/24/18 07:00 67 12 116/63 (80) 95 Mechanical Ventilator 30.00 09/24/18 06:12 60 135/71 09/24/18 06:00 62 14 135/71 (92) 95 Mechanical Ventilator 30.00 I & O 09/25/18 07:00 Intake Total 0 ml Output Total 3500 ml Balance -3500 ml Height & Weight Height: 5'8.00" Weight: 219lbs. 8.0oz. 99.370313yf; 30.2 BMI Method:Stated General Appearance: WD/WN, Mild Distress HEENT: PERRL/EOMI, Pharynx Normal Neck: Normal Inspection, Non Tender, Supple Respiratory: No Respiratory Distress, Decreased Breath Sounds, Wheezing Cardiovascular: Regular Rate, Rhythm, No Murmur Capillary Refill: Less Than 3 Seconds Gastrointestinal: non tender, soft Extremity: Normal Range of Motion, Non Tender Neurologic/Psychiatric: Alert, Oriented x3 Skin: Normal Color, Warm/Dry Lymphatic: No Adenopathy Results Lab Laboratory Tests 09/24/18 03:45 09/25/18 03:25 Assessment/Plan Assessment/Plan Acute respiratory failure - worsening Doing well post extubation Pulmonary hemorrhage - Pt still having hemoptysis - secondary to Eliquis -Last hospitalization I check ANCA, Anti-Glomerular BM, and GENE - they were negative - echo shows EF 60-65% -monitor Hypokalemia -Replace PNA with SOB and hypoxia -SVNs - Zosyn -Cultures are negative thus far Metabolic lactic acidosis - resolved -Monitor DM -SSI may need to start Levemir BRIDGER -Out pt JUAN Don DO Sep 25, 2018 05:15
[2018-09-25] MEDS: methylPREDNISolone 40 MG/ML (Solu-MEDROL) VIAL IV SCH ×3 (06:49→18:08)
[2018-09-25] MEDS: LACTOBACILLUS ACIDOPHILUS (PROBIOTIC) CAPSULE PO SCH ×2 (06:50→18:18)
--- NOTE | 2018-09-25 07:19 | Progress Note ---
Subjective Time Seen by a Provider: 07:17 Subjective/Events-last exam Off the ventilator. Patient feeling okay. Patient to have brought today. Patient to be transferred to medical floor. Chest x-ray yesterday shows CHF Objective Exam Vital Signs Date Time Temp Pulse Resp B/P (MAP) Pulse Ox O2 Delivery O2 Flow Rate FiO2 09/25/18 06:00 64 13 135/70 (91) 92 Vapotherm 30.00 15.00 09/25/18 05:00 60 16 141/67 (91) 92 Vapotherm 30.00 15.00 09/25/18 04:00 92 Vapotherm 15.00 30 09/25/18 04:00 64 21 140/106 (117) 92 Vapotherm 30.00 15.00 09/25/18 03:15 92 Vapotherm 15.00 30 09/25/18 03:00 60 11 151/72 (98) 92 Vapotherm 30.00 15.00 09/25/18 02:00 60 21 150/70 (96) 93 Vapotherm 30.00 15.00 09/25/18 01:00 60 09/25/18 01:00 60 17 143/76 (98) 94 Vapotherm 30.00 15.00 09/25/18 00:00 95 Vapotherm 15.00 30 09/25/18 00:00 60 11 151/72 (98) 93 Vapotherm 30.00 15.00 09/24/18 23:00 62 18 147/81 (103) 95 Vapotherm 30.00 15.00 09/24/18 22:50 94 Vapotherm 15.00 30 09/24/18 22:00 61 13 144/71 (95) 94 Vapotherm 30.00 15.00 09/24/18 21:00 72 20 170/76 (107) 93 Vapotherm 30.00 15.00 09/24/18 20:00 95 Vapotherm 15.00 30 09/24/18 20:00 70 15 163/76 (105) 93 Vapotherm 30.00 15.00 09/24/18 20:00 97.2 09/24/18 19:43 92 Vapotherm 15.00 30 09/24/18 19:00 64 14 149/74 (99) 93 Vapotherm 30.00 15.00 09/24/18 19:00 63 6/25/19 18:00 61 16 148/75 (99) 92 Vapotherm 30.00 15.00 09/24/18 17:00 61 15 152/73 (99) 94 Vapotherm 30.00 15.00 09/24/18 16:00 59 15 147/80 (102) 93 Vapotherm 30.00 15.00 09/24/18 16:00 97.3 09/24/18 16:00 95 Vapotherm 15.00 30 09/24/18 15:00 65 17 149/74 (99) 94 Vapotherm 30.00 15.00 09/24/18 14:36 95 Vapotherm 15.00 30 09/24/18 14:00 64 19 151/73 (99) 94 Vapotherm 30.00 15.00 09/24/18 13:00 65 20 155/84 (107) 94 Vapotherm 30.00 15.00 09/24/18 12:11 64 09/24/18 12:00 75 17 131/96 (108) 96 Vapotherm 30.00 15.00 09/24/18 12:00 95 Vapotherm 15.00 30 09/24/18 12:00 96.2 09/24/18 11:03 94 Vapotherm 15.00 30 09/24/18 11:00 64 15 133/78 (96) 94 Vapotherm 30.00 15.00 09/24/18 10:00 63 11 146/73 (97) 98 Mechanical Ventilator 30.00 09/24/18 09:00 60 24 143/78 (99) 97 Mechanical Ventilator 30.00 09/24/18 08:00 97 Mechanical Ventilator 30 09/24/18 08:00 60 7 121/68 (85) 96 Mechanical Ventilator 30.00 09/24/18 08:00 96.6 09/24/18 07:37 61 8 96 30 I & O 09/25/18 07:00 Intake Total 0 ml Output Total 3630 ml Balance -3630 ml Capillary Refill : Less Than 3 Seconds General Appearance: No Apparent Distress, WD/WN HEENT: Normal ENT Inspection Neck: Normal Inspection Respiratory: No Accessory Muscle Use, No Respiratory Distress, Decreased Breath Sounds Cardiovascular: Irregularly Irregular Gastrointestinal: non tender, soft Results Lab Laboratory Tests 09/25/18 03:25 Laboratory Tests 09/24/18 08:35: Blood Gas Puncture Site R RAD, Blood Gas Patient Temperature 96.6, Arterial Blood pH 7.46H, Arterial Blood Partial Pressure CO2 34L, Arterial Blood Partial Pressure O2 80, Arterial Blood HCO3 24, Arterial Blood Total CO2 25.4, Arterial Blood Oxygen Saturation 98, Arterial Blood Base Excess 0.7, Pranav Test YES-POS, Blood Gas Ventilator Setting YES, Blood Gas Inspired Oxygen 30 09/24/18 11:47: Glucometer 200H 09/24/18 16:45: Glucometer 131H 09/24/18 23:43: Glucometer 162H 09/25/18 03:25: White Blood Count 7.4, Red Blood Count 3.59L, Hemoglobin 10.9L, Hematocrit 33L, Mean Corpuscular Volume 92, Mean Corpuscular Hemoglobin 30, Mean Corpuscular Hemoglobin Concent 33, Red Cell Distribution Width 15.2H, Platelet Count 213, Mean Platelet Volume 10.0, Neutrophils (%) (Auto) 82H, Lymphocytes (%) (Auto) 11L, Monocytes (%) (Auto) 6, Eosinophils (%) (Auto) 0, Basophils (%) (Auto) 0, Neutrophils # (Auto) 6.1, Lymphocytes # (Auto) 0.8L, Monocytes # (Auto) 0.5, Eosinophils # (Auto) 0.0, Basophils # (Auto) 0.0, Sodium Level 138, Potassium Level 4.2, Chloride Level 106, Carbon Dioxide Level 22, Anion Gap 10, Blood Urea Nitrogen 33H, Creatinine 0.83, Estimat Glomerular Filtration Rate > 60, BUN/Creatinine Ratio 40, Glucose Level 171H, Calcium Level 8.0L, Corrected Calcium 9.1, Phosphorus Level 3.1, Magnesium Level 2.1, Total Bilirubin 0.8, Aspartate Amino Transf (AST/SGOT) 24, Alanine Aminotransferase (ALT/SGPT) 31, A lkaline Phosphatase 57, Total Protein 4.9L, Albumin 2.6L Microbiology 09/18/18 Blood Culture - Final, Complete No growth 09/24/18 Gram Stain - Final, Resulted 09/24/18 Bronchial Culture, Resulted Pending 09/24/18 Fungal Culture 1, Resulted Pending Assessment/Plan Assessment/Plan Assess & Plan/Chief Complaint Patient on vent. Acute respiratory failure. Pulmonary hemorrhage. Pneumonia. Short of breath. Hypoxia. Hemoptysis. Coronary artery disease. . 09/24/18. Pneumonia. Hemoptysis. A. fib history. Diabetes. Hypoxia Coronary artery disease. . . Pneumonia. Hemoptysis. Atrial fib. Diabetes. Hypoxia. Coronary artery disease. Sleep apnea history. Patient improving to go to medical floor Clinical Quality Measures DVT/VTE Risk/Contraindication: Risk Factor Score Per Nursin RFS Level Per Nursing on Admit: 4+=Very High VIMAL DE LA TORRE DO Sep 25, 2018 07:19
--- NOTE | 2018-09-25 07:48 | Diagnostic Imaging Report ---
INDICATION: Extubation chest. Comparison with 09/24/2018. FINDINGS: ET tube has been removed. Lungs are well-aerated. Mild perihilar infiltrate noted on the right. Left lung is clear. No pneumothorax or pleural effusion. IMPRESSION: Extubation chest showing mild right perihilar infiltrate otherwise well-aerated and clear. Dictated by: Dictated on workstation # [id number]
[2018-09-25] MEDS: LOPERAMIDE 2 MG (IMODIUM) TABLET PO SCH ×2 (08:43→21:53)
[2018-09-25] MEDS: PANTOPRAZOLE 40 MG (PROTONIX) VIAL IV SCH (08:43)
[2018-09-25] MEDS: LORATADINE (CLARITIN) 10 MG TAB PO SCH (08:43)
--- NOTE | 2018-09-25 08:47 | ST Dysphagia Evaluation ---
Speech Evaluation-General Medical Diagnosis Pulmonary hemorrhage, pneumonia Onset Date: Sep 18, 2018 Therapy Diagnosis Therapy Diagnosis: Oropharyngeal Dysphagia Precautions Precautions: Aspiration (Dr) Precautions/Isolations: Fall Prevention, Standard Precautions Referral Referring Physician: Dr. Parsons Medical History Pertinent Medical History: CABG, CAD, COPD, Heart Failure, HTN, [place] Reviewed History: Yes Social History Current Living Status: Spouse Speech PLF/Current-Dysphagia Prior Level of Function The patient lived at home with his and was independent for most of his needs. Subjective The patient was pleasant and cooperative with the Bedside Dysphagia Evaluation, Cognitive Status Patient Orientation: Person, Place, Situation Oral Motor Skills Dentition: Edentalous Denture Type: Full- Upper & Lower Patient has been NPO pending his BDE. Oral Expression Ability: No Impairment Voice Voice Phonatory-Based Quality: Normal Voice Pitch: Mildly Low Voice Loudness: Mildly Soft/Quiet Face Facial Symmetry: Symmetrical Oral-Facial Assessment Oral-Facial Dentition: Normal Labial Seal Description: Normal Smile: Normal Lingual Protrusion: Normal Lingual ROM: Normal Lingual Strength: Normal Pharynx Velopharyngeal Move.: Normal Volitional Dry Swallow: Yes Voluntary Cough: Yes Can Clear Throat Volitionally: Yes Dysphagia Evaluation Consistencies Presented: Regular, Thin Liquid, Mechanical Soft, Pureed Oral phase is within normal function range. Pharyngeal phase is within normal function range. Dietary Recommendations: Regular Liquid Recommendations: Thin Swallowing Precautions: Alternate Liquids/Solids, Decreased Bolus 1/2 Tsp, Liquids from Straw, Small Bites and Sips, Sitting Upright 90 Degrees, Sitting 90 Degrees 30 Post Intake Dysphagia Evaluation Summary The patient is a pleasant 78 year old man who was hospitalized for the second time this month for pneumonia and pulmonary hemorrhage. He was intubated on 09/22/18 and extubated on 09/24/18. The patient was referred for a BDE which was completed with an alert and cooperative patient. The patient was presented thin liquids at 1/2 tsp x2 without difficulty. He also took a small sip of thin via straw without difficulty. The patient was presented puree, mechanical and regular by 1/2 tsp bite size without difficulty or s/s of aspiration. The patient will be on a regular with thin liquids. This information was given to his nurse. Barriers to Learning Patient has had many days in the hospital for respiratory issues. Speech Short Term Goals Short Term Goals Short Term Goals 1) The patient will tolerate the least restrictive diet level without s/s of aspiration at 90% or greater. 2) The patient will utilize compensatory strategies as trained for safe oral int nesha at 90% or greater given minimal verbal cues. Speech Material Reprocessing Associate Goals Intermediate Goals The patient will maintain adequate nutrition/hydration via safe effective swallow. Speech-Plan Patient/Family Goals Patient/Family Goals: The patient plans on returning home with his upon hospital discharge. Treatment Plan Speech Therapy Treatment Plan: Continue Plan of Care The patient will receive skilled ST services for safe oral intake. Treatment Duration: Oct 02, 2018 Frequency: 3 times per week Estimated Hrs Per Day: .25 hour per day Rehab Potential: Fair Barriers to Learning: Patient has multiple respiratory issues. Pt/Family Agrees to Plan: Yes Safety Risks/Education Teaching Recipient: Patient, Significant Other Teaching Methods: Discussion Response to Teaching: Verbalize Understanding Education Topics Provided: Safety of oral intake. Time Speech Therapy Time In: 08:15 Speech Therapy Time Out: 08:30 Total Billed Time: 15 Billed Treatment Time 1REJI BETHAN[address] ST Sep 25, 2018 08:47
--- NOTE | 2018-09-25 09:39 | Progress Note - Cardiology ---
Cardiology SOAP Progress Note Subjective: Notes gen malaise and weakness No cp or palp or syncope or shortness of breath at rest Objective: I&O/Vital Signs 09/24/18 09/24/18 09/24/18 09/25/18 22:00 22:50 23:00 00:00 Pulse 61 62 60 Resp 13 18 11 B/P (MAP) 144/71 (95) 147/81 (103) 151/72 (98) Pulse Ox 94 94 95 93 O2 Delivery Vapotherm Vapotherm Vapotherm Vapotherm O2 Flow Rate 30.00 15.00 30.00 30.00 15.00 15.00 15.00 FiO2 30 09/25/18 09/25/18 09/25/18 09/25/18 00:00 01:00 01:00 02:00 Pulse 60 60 60 Resp 17 21 B/P (MAP) 143/76 (98) 150/70 (96) Pulse Ox 95 94 93 O2 Delivery Vapotherm Vapotherm Vapotherm O2 Flow Rate 15.00 30.00 30.00 15.00 15.00 FiO2 30 09/25/18 09/25/18 09/25/18 09/25/18 03:00 03:15 04:00 04:00 Pulse 60 64 Resp 11 21 B/P (MAP) 151/72 (98) 140/106 (117) Pulse Ox 92 92 92 92 O2 Delivery Vapotherm Vapotherm Vapotherm Vapotherm O2 Flow Rate 30.00 15.00 30.00 15.00 15.00 15.00 FiO2 30 30 09/25/18 09/25/18 09/25/18 09/25/18 05:00 06:00 06:58 07:00 Pulse 60 64 61 61 Resp 16 13 11 B/P (MAP) 141/67 (91) 135/70 (91) 145/64 (91) Pulse Ox 92 92 93 O2 Delivery Vapotherm Vapotherm Vapotherm O2 Flow Rate 30.00 30.00 30.00 15.00 15.00 15.00 09/25/18 09/25/18 07:28 08:00 Pulse 59 Resp 17 B/P (MAP) 155/75 (101) Pulse Ox 95 95 O2 Delivery Vapotherm Vapotherm O2 Flow Rate 15.00 30.00 15.00 FiO2 30 09/25/18 00:00 Intake Total 0 ml Output Total 1325 ml Balance -1325 ml Weight (Pounds): 218 Weight (Ounces): 8.0 Weight (Calculated Kilograms): 98.293597 Constitutional: AAO x 3, well-developed, well-nourished Respiratory: No accessory muscle use, No respiratory distress; chest expansion is symmetric, chest is bilaterally symmetric, crackles (lower lobes; diminished), rhonchi (scattered over lg airways) Cardiovascular: regular rate-rhythm, S1 and S2, systolic murmur Gastrointestional: No tender; soft, round, audible bowel sounds Extremities: swelling (mod bilat LE swelling) Neurologic/Psychiatric: other (able to move all limbs equally, appropriately responsive, oriented x 3) Skin: normal color, warm/dry; No rash on exposed areas, No ulcerations on exposed areas Results/Procedures: Labs Laboratory Tests 09/24/18 11:47: Glucometer 200H 09/24/18 16:45: Glucometer 131H 09/24/18 23:43: Glucometer 162H 09/25/18 03:25: White Blood Count 7.4, Red Blood Count 3.59L, Hemoglobin 10.9L, Hematocrit 33L, Mean Corpuscular Volume 92, Mean Corpuscular Hemoglobin 30, Mean Corpuscular Hemoglobin Concent 33, Red Cell Distribution Width 15.2H, Platelet Count 213, Mean Platelet Volume 10.0, Neutrophils (%) (Auto) 82H, Lymphocytes (%) (Auto) 11L, Monocytes (%) (Auto) 6, Eosinophils (%) (Auto) 0, Basophils (%) (Auto) 0, Neutrophils # (Auto) 6.1, Lymphocytes # (Auto) 0.8L, Monocytes # (Auto) 0.5, Eosinophils # (Auto) 0.0, Basophils # (Auto) 0.0, Sodium Level 138, Potassium Level 4.2, Chloride Level 106, Carbon Dioxide Level 22, Anion Gap 10, Blood Urea Nitrogen 33H, Creatinine 0.83, Estimat Glomerular Filtration Rate > 60, BUN /Creatinine Ratio 40, Glucose Level 171H, Calcium Level 8.0L, Corrected Calcium 9.1, Phosphorus Level 3.1, Magnesium Level 2.1, Total Bilirubin 0.8, Aspartate Amino Transf (AST/SGOT) 24, Alanine Aminotransferase (ALT/SGPT) 31, Alkaline Phosphatase 57, B-Type Natriuretic Peptide 765.3H, Total Protein 4.9L, Albumin 2.6L Microbiology 09/18/18 Blood Culture - Final, Complete No growth 09/24/18 Gram Stain - Final, Resulted 09/24/18 Bronchial Culture - Preliminary, Resulted Gram Negative Michael 09/24/18 Fungal Culture 1, Resulted Pending A/P: Assessment: Pneumonia - management per Pulmonary/Medical services Hemoptysis and pulmonary hemorrhage necessitating discontinuation of Eliquis and aspirin Echo of 09/19/18: LVEF 60-65%, biatrial enlargement, mod MR, mild to mod TR, RVSP 45 mmHg 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 Cardiac cath from December 30, 2013 in which successful GAURI x 2, one to the proximal and one to the mid vessel LAD, was done. 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 Pacemaker currently in the VVIR mode, due to permanent atrial fib. The patient had a pulse generator change out on 12/18/2011. The device is functioning normally per last interrogation of September 23, 2018 (DIMITRIOS estimate 11 months) History of ulcerative colitis, being managed by Dr. Parsons and Dr. Seymour Stroke prophylaxis with Eliquis - currently being held d/t hemoptysis Sleep apnea for which he is following with Dr Mijares - Bi-pap therapy Hyperlipidemia being treated with rosuvastatin. Mild carotid arterial disease that has been followed by Dr. Mcdaniel History of cholecystectomy. 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
--- NOTE | 2018-09-25 10:05 | Physical Therapy Evaluation ---
PT Evaluation-General Medical Diagnosis Admission Date Sep 18, 2018 at 13:37 Medical Diagnosis: Pulmonary hemorrhage, pneumonia Onset Date: Sep 18, 2018 Therapy Diagnosis Therapy Diagnosis: impaired mobility, strength, endurance Height/Weight Height (Feet): 5 Height (Inches): 8.00 Weight (Pounds): 218 Weight (Ounces): 8.0 Precautions Precautions/Isolations: Fall Prevention, Standard Precautions Weight Bear Status Right Lower Extremity: Right Weight Bearing/Tolerated Left Lower Extremity: Left Weight Bearing/Tolerated Referral Physician: Dr. Mijares Reason for Referral: Evaluation/Treatment Medical History Pertinent Medical History: CABG, CAD, COPD, Heart Failure, HTN, [place] Reviewed History: Yes Social History Home: Single Level Current Living Status: Spouse Prior/Core FIM Prior Level of Function Therapy Code Descriptions/Definitions Functional Owen Measure: 0=Not Assessed/NA 4=Minimal Assistance 1=Total Assistance 5=Supervision or Setup 2=Maximal Assistance 6=Modified Owen 3=Moderate Assistance 7=Complete Owen Therapy Quality Codes: 6 Independent with activity with or without an assistive device 5 Patient requires set up or clean up by helper. Patient completes activity by themselves 4 Supervision or touching assist (CGA). [place] provide cues , steadying assist 3 The helper provides less than half the effort to complete the activity 2 The helper provides more than half the effort to complete the activity 1 Dependent. The helper does all the effort to complete an activity 7 Patient refused to complete or attempt activity 9 The patient did not perform the activity before the current illness or injury 88 Not attempted due to Medical conditions or safety concerns Functional Abilities and Goals: Independent: Patient completed the activities by him/herself, with or without an assistive device, with no assistance from a helper. Needed Some Help: Patient needed partial assistance from another person to complete activities. Dependent: A helper completed the activities for the patient. Unknown: Not Applicable: Bed Mobility: 7 Transfers (B,C,W/C) (FIM): 7 Gait: 7 Stairs: 7 Indoor Mobility (Ambulation): Independent Stairs: Independent He was independent previously but after discharging from the hospital recently he was using a rolling walker. PT Evaluation-Current Subjective Patient in bed pre tx, agrees to PT, has no complaints of pain. Pt/Family Goals "to get stronger" Objective Patient Orientation: Person, Place, Situation Attachments: Head Catheter, IV vapotherm ROM/Strength ROM Lower Extremities WNL Strength Lower Extremities 2/5 gross bilateral lower extremities Integumentary/Posture Bladder Incontinence: Head Cath Sensory Hearing: Functional Hand Dominance: Right Sensation Right Lower Extremit: Intact Sensation Left Lower Extremity: Intact Transfers Therapy Code Descriptions/Definitions Functional Owen Measure: 0=Not Assessed/NA 4=Minimal Assistance 1=Total Assistance 5=Supervision or Setup 2=Maximal Assistance 6=Modified Owen 3=Moderate Assistance 7=Complete Owen Transfers (B, C, W/C) (FIM): 1 Scootin Rollin Supine to/from Sit: 1 Patient attempted to assist using his arms during supine to sit and when sitting but he is too weak to even get to max assist. Patient was able to sit at the ed ge of the bed with min assist for balance and cues for positioning for 15' Balance Sitting Static: Poor Sitting Dynamic: Poor Treatment seated LE exercises x10 (AP, LAQ, hip flexion), patient could not achieve full ROM during exercises due to weakness Assessment/Needs Patient has impaired mobility, strength, endurance, balance. He is not strong enough to bear weight on his legs, he needs assist just to maintain sitting balance. Rehab Potential: Guarded PT Short Term Goals Short Term Goals Time Frame: Oct 02, 2018 Transfers (B,C,W/C) (FIM): 3 Gait (FIM): 1 Gait Distance Comment: 3' Gait Level of Assist: 3 Gait Assistive Device: FWW PT Plan Problem List Problem List: Activity Tolerance, Functional Strength, Safety, Balance, Gait, Transfer, Bed Mobility, ROM Treatment/Plan Treatment Plan: Continue Plan of Care Treatment Plan: Bed Mobility, Concurrent Therapy, Education, Functional Activity [place], Functional Strength, Gait, Safety, Therapeutic Exercise, Transfers Treatment Duration: Oct 02, 2018 Frequency: 6 times per week Estimated Hrs Per Day: .25 hour per day (15-30') Patient and/or Family Agrees t: Yes Safety Risks/Education Patient Education: Transfer Techniques, Correct Positioning, Safety Issues Teaching Recipient: Patient Teaching Methods: Demonstration, Discussion Response to Teaching: Reinforcement Needed Discharge Recommendations Plan Patient will perform bed mobility and transfer training, balance and endurance training, functional strengthening, gait training, and education, to improve functional mobility and independence at home. Therapy D/C Recommendations: Home w/ Family Support, Nursing Home (TCU/NH) Time/GCodes Time In: 927 Time Out: 949 Total Billed Treatment Time: 22 Total Billed Treatment 1 visit EVM 22' MARIA ELENA ESQUIVEL PT Sep 25, 2018 10:05
--- NOTE | 2018-09-25 10:27 | NUR ---
REPORT RECEIVED FROM LEIDA FRANCO VIA TELEPHONE.
--- NOTE | 2018-09-25 10:47 | NUR ---
ANIYEHUDA admitted to room CU10-1, with an admitting diagnosis of PNEUMONIA AND CHF, on 09/18/18 from ICU via HOSPITAL BED, accompanied by STAFF AND .YEHUDA LAW introduced to surroundings, call light, bed controls, phone, TV, temperature control, lights, meal times, smoking policy, visitor policy, side rail policy, bathrooms and showers. Patient Rights given to patient in the handbook. YEHUDA LAW verbalizes understanding that [facility] is not responsible for the loss or damage to any personal effects or valuables that are kept in the patients posession during their hospitalization. YEHUDA LAW verbalizes understanding of Interdisciplinary Patient Education. Patient and/or family were informed about the Rapid Response Team and its purpose. Addendum: 09/25/18 at 1133 by ABDIEL FRANCISCO RN TRANSFERED FROM ICU TO ROOM 411.
--- NOTE | 2018-09-25 10:50 | NUR ---
PT TO ROOM 411 VIA BED ACCOMPANIED BY RT AND THIS NURSE. ALL PERSONAL BELONGINGS SENT WITH PT'S FAMILY. REPORT TO ABDIEL FRANCISCO RN.
--- NOTE | 2018-09-25 11:15 | NUR ---
IRF Patient extubated and transferring to the floor, today. New authorization request initiated. Will continue to follow.
--- NOTE | 2018-09-25 11:34 | Occupational Ther Daily Note ---
OT Current Status-Daily Note Subjective Pt alert, lying in bed. Pt to transfer to 4th floor, rm 411. Assisted nrsg moving pt. Pt agrees to therapy. Increased swelling noted. Mental Status/Objective Patient Orientation: Person, Place, Time, Situation Therapy Code Descriptions/Definitions Functional [place] Measure: 0=Not Assessed/NA 4=Minimal Assistance 1=Total Assistance 5=Supervision or Setup 2=Maximal Assistance 6=Modified [place] 3=Moderate Assistance 7=Complete [place] Attachments: Head Catheter, IV (midline), Oxygen (hi flow), Telemetry Other Treatment Pt demonstrates overall weakness and increased edema. Discussed with pt moving UE's and using resistive therapy foam to increase hand strength and decrease edema. Nrsg in room to complete assessment. All needs met in room. OT Short Term Goals Short Term Goals Time Frame: Oct 08, 2018 Eating(FIM): 4 Grooming(FIM): 4 Bathing(FIM): 4 Upper Body Dressing(FIM): 5 Lower Body Dressing(FIM): 3 Toileting(FIM): 4 Transfers (B,C,W/C) (FIM): 3 Toilet/Commode Transfer(FIM): 3 Additional Short Term Goals: 1-Demonstrate ADL Tasks, 2-Verbalize Understanding, 3-ImproveStrength/Gilbert 1=Demonstrate adherence to instructed precautions during ADL tasks. 2=Patient will verbalize/demonstrate understanding of assistive devices/modifications for ADL. 3=Patient will improve strength/tolerance for activity to enable patient to perform ADL's. OT Mcc Goals [employer] Goals Time Frame: Oct 22, 2018 Eating (FIM): 6 Grooming(FIM): 6 Bathing(FIM): 5 Upper Body Dressing(FIM): 5 Lower Body Dressing(FIM): 5 Toileting(FIM): 5 Transfers (B,C,W/C) (FIM): 5 Toilet/Commode Transfer(FIM): 5 Shower Transfer(FIM): 5 Additional Goals: 1-Demonstrate ADL Tasks, 2-Verbalize Understanding, 3- ImproveStrength/Gilbert 1=Demonstrate adherence to instructed precautions during ADL tasks. 2=Patient will verbalize/demonstrate understanding of assistive devices/modifications for ADL. 3=Patient will improve strength/tolerance for activity to enable patient to perform ADL's. OT Education/Plan Problem List/Assessment Assessment: Decreased Activ Tolerance, Decreased UE Strength, Dependent Transfers, Impaired Coordination, Impaired Funct Balance, Impaired Self-Care Skills Discharge Recommendations Plan/Recommendations: Continue POC Treatment Plan/Plan of Care Patient would benefit from OT for education, treatment and training to promote independence in ADL's, mobility, safety and/or upper extremity function for ADL's. Plan of Care: ADL Retraining, Caregiver Training, Functional Mobility, UE Funct Exercise/Act Treatment Duration: Oct 22, 2018 Frequency: 5 times per week Estimated Hrs Per Day: .5 hour per day Agreement: Yes Rehab Potential: Guarded Time/GCodes Start Time: 10:20 Stop Time: 10:40 Total Time Billed (hr/min): 20 Billed Treatment Time 1 visit-FA 1 (20 min) NERY ADAIR Sep 25, 2018 11:34
[2018-09-25] MEDS: TAMSULOSIN 0.4 MG (FLOMAX) CAP PO SCH (18:19)
[2018-09-26 00:01] VITALS: BP 176/79
[2018-09-26] MEDS: meTOprolol 5 MG/5 ML (LOPRESSOR) VIAL IV SCH ×7 (01:02→22:05)
[2018-09-26] MEDS: methylPREDNISolone 40 MG/ML (Solu-MEDROL) VIAL IV SCH ×5 (01:03→23:15)
[2018-09-26] MEDS: inSUlin ASPART (NovoLOG) 1 UNIT/0.01 ML (CHARGE PER UNIT) SC SCH ×4 (01:03→18:44)
[2018-09-26] MEDS: RT-ALBUTEROL/IPRATROPIUM 3 ML (DUONEB) VIAL INH SCH ×6 (02:21→22:50)
[2018-09-26 03:27] VITALS: BP 173/74
[2018-09-26 06:03] LABS: BASOPHILS % (AUTO) 0 % (0-10); EOSINOPHILS % (AUTO) 0 % (0-10); HEMATOCRIT 32 % (40-54); HEMOGLOBIN 10.9 G/DL (13.3-17.7); LYMPHOCYTES # (AUTO) 0.8 X 10^3 (1.0-4.0); LYMPHOCYTES % (AUTO) 9 % (12-44); MEAN CORPUSCULAR HEMOGLOBIN 31 PG (25-34); MEAN CORPUSCULAR HGB CONC 34 G/DL (32-36); MEAN CORPUSCULAR VOLUME 92 FL (80-99); MEAN PLATELET VOLUME 9.8 FL (7.4-10.4); MONOCYTES # (AUTO) 0.6 X 10^3 (0.0-1.0); MONOCYTES % (AUTO) 6 % (0-12); NEUTROPHILS # (AUTO) 7.4 X 10^3 (1.8-7.8); NEUTROPHILS % (AUTO) 84 % (42-75); PLATELET COUNT 216 10^3/uL (130-400); RED CELL DISTRIBUTION WIDTH 14.9 % (10.0-14.5); WHITE BLOOD COUNT 8.7 10^3/uL (4.3-11.0)
[2018-09-26 06:41] LABS: ALANINE AMINOTRANSFERASE 37 U/L (0-55); ALBUMIN 2.8 GM/DL (3.2-4.5); ALKALINE PHOSPHATASE 57 U/L (40-136); BILIRUBIN,TOTAL 0.8 MG/DL (0.1-1.0); BUN/CREATININE RATIO 39; CALCIUM 7.9 MG/DL (8.5-10.1); CARBON DIOXIDE 23 MMOL/L (21-32); CHLORIDE 106 MMOL/L (98-107); CREATININE SERUM 0.74 MG/DL (0.60-1.30); GFR ESTIMATED > 60; GLUCOSE 168 MG/DL (70-105); MAGNESIUM 2.2 MG/DL (1.8-2.4); PHOSPHORUS 3.1 MG/DL (2.3-4.7); POTASSIUM 4.4 MMOL/L (3.6-5.0); SODIUM 138 MMOL/L (135-145); TOTAL PROTEIN 4.9 GM/DL (6.4-8.2)
[2018-09-26] MEDS: LACTOBACILLUS ACIDOPHILUS (PROBIOTIC) CAPSULE PO SCH ×2 (07:05→18:38)
[2018-09-26 08:00] VITALS: BP 172/76
[2018-09-26] MEDS: NS IV 1000 ML 1,000 ML IV SCH ×2 (08:06→10:50)
--- NOTE | 2018-09-26 08:40 | Progress Note ---
Subjective Date Seen by a Provider: Sep 26, 2018 Time Seen by a Provider: 09:00 Subjective/Events-last exam PT REPORTS THAT HE IS FEELING BETTER FROM A BREATHING STANDPOINT, HOWEVER HE IS EXTREMELY FATIGUED AND UNABLE TO SIT UP IN BED WITHOUT ASSISTANCE. HE DENIES CHEST PAIN AT THIS TIME. HE HAS HAD LOOSE STOOLS Review of Systems General: No Chills; Fatigue, Malaise HEENT: No Head Aches Pulmonary: Dyspnea; No Cough Cardiovascular: No: Chest Pain, Palpitations Gastrointestinal: Diarrhea; No: Nausea, Abdominal Pain Genitourinary: Other (ALEXANDER IN PLACE) Neurological: Weakness; No: Confusion Objective Exam Last Set of Vital Signs Vital Signs Date Time Temp Pulse Resp B/P (MAP) Pulse Ox O2 Delivery O2 Flow Rate FiO2 09/26/18 08:00 97.1 60 18 172/76 (108) 94 High Flow N/C 4.00 09/25/18 10:50 30 Capillary Refill : Less Than 3 Seconds I&O Intake and Output 09/26/18 00:00 Intake Total 470 ml Output Total 1180 ml Balance -710 ml Intake Oral 470 ml Output Urine Total 1180 ml # Voids 100 # Bowel Movements 3 General: Alert, Oriented X3, Cooperative, No Acute Distress HEENT: Atraumatic, PERRLA Neck: Supple Lungs: Other (IMPROVED AIR MOVEMENT THROUGHOUT) Heart: Regular Rate Abdomen: Normal Bowel Sounds, Soft, No Tenderness Extremities: No Clubbing, No Cyanosis Skin: No Rashes, No Breakdown Neuro: Normal Speech, Other (EXTREMELY WEAK UNABLE TO SIT UP IN BED WITHOUT TWO PERSON ASSISTANCE) Psych/Mental Status: Mental Status NL, Mood NL Results Lab Laboratory Tests 09/25/18 12:09: Glucometer 188H 09/25/18 17:55: Glucometer 177H 09/26/18 00:07: Glucometer 198H 09/26/18 05:30: White Blood Count 8.7, Red Blood Count 3.53L, Hemoglobin 10.9L, Hematocrit 32L, Mean Corpuscular Volume 92, Mean Corpuscular Hemoglobin 31, Mean Corpuscular Hemoglobin Concent 34, Red Cell Distribution Width 14.9H, Platelet Count 216, Mean Platelet Volume 9.8, Neutrophils (%) (Auto) 84H, Lymphocytes (%) (Auto) 9L, Monocytes (%) (Auto) 6, Eosinophils (%) (Auto) 0, Basophils (%) (Auto) 0, Neutrophils # (Auto) 7.4, Lymphocytes # (Auto) 0.8L, Monocytes # (Auto) 0.6, Eosinophils # (Auto) 0.0, Basophils # (Auto) 0.0, Sodium Level 138, Potassium Level 4.4, Chloride Level 106, Carbon Dioxide Level 23, Anion Gap 9, Blood Urea Nitrogen 29H, Creatinine 0.74, Estimat Glomerular Filtration Rate > 60, BUN/Creatinine Ratio 39, Glucose Level 168H, Calcium Level 7.9L, Corrected Calcium 8.9, Phosphorus Level 3.1, Magnesium Level 2.2, Total Bilirubin 0.8, Aspartate Amino Transf (AST/SGOT) 27, Alanine Aminotransferase (ALT/SGPT) 37, Alkaline Phosphatase 57, Total Protein 4.9L, Albumin 2.8L 09/26/18 06:05: Glucometer 165H Microbiology 09/18/18 Blood Culture - Final, Complete No growth 09/24/18 Mycobacterial Culture - Preliminary, Resulted Assessment/Plan Assessment/Plan Assess & Plan/Chief Complaint PULMONARY HEMORRHAGE PNEUMONIA ATRIAL FIBRILLATION HYPERTENSION HYPERLIPIDEMIA ULCERATIVE COLITIS GENERALIZED WEAKNESS INSOMNIA CHRONIC ANTICOAGULATION USE BPH PULMONARY HEMORRHAGE WITH PNEUMONIA - DISCUSSED WITH THE PATIENT AND HIS - WE ARE AT THE POINT THAT WE CANNOT CONTINUE TO KEEP HIM ON ELIQUIS - DR. JUNIOR IS IN AGREEMENT WITH THIS AND HE HAS RECOMMENDED AT LEAST A MONTH OFF OF THE ASPIRIN. PT IS STATUS POST INTUBATION AND EXTUBATION OVER THE WEEKEND AND EARLY THIS WEEK. HE HAS A SORE THROAT AND IS UNABLE TO DRINK OR EAT VERY MUCH. ATRIAL FIBRILLATION - STATED ABOVE - HOLD ASPIRIN AND ELIQUIS - DEFER OTHER TREATMENT TO DR. 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 HYPERTENSION - RESUMED HOME REGIMEN HYPERLIPIDEMIA - STABLE - HOLD STATIN FOR NOW, WILL RESTART LATER DURING HOSPITALIZATION. ULCERATIVE COLITIS - RESTARTED LIALDA TODAY - IT WAS HELD FOR SEVERAL DAYS - WITH YEHUDA'S HISTORY AND HAVING BEEN ON ANTIBIOTICS, WILL CHECK CDIFF. GENERALIZED WEAKNESS - START THERAPY - WILL AGAIN TRY TO GET HIM ADMITTED TO INPT REHAB UNIT - [facility], SINCE HIS INSURANCE REFUSED ON THIS LAST ADMISSION THEY WILL RECONSIDER HIS CASE AND AGREE THAT YEHUDA NEEDS THE CARE AND MONITORING AVAILABLE ON THE INPT REHAB UNIT SINCE HE IS HIGHER FUNCTIONING THAN WOULD NORMALLY BE SEEN AT THE CARE HOME. HE NOW HAS CRITICAL CARE MYOPATHY DUE TO HIS PROLONGED HOSPITALIZATION AND INTUBATION. EMPHYSEMA - DX ON HIS CT SCAN - HE WILL NEED CONTINUED TREATMENT OF HIS ILLNESS WITH DR. HESS AN OUTPATIENT. INSOMNIA - RESTARTED HIS HOME MELATONIN DOSING. CHRONIC ANTICOAGULATION USE - STOPPED. BPH - RESTARTED TAMSULOSIN. I HAVE DISCUSSED WITH THE PT AND HIS THAT WE WILL TRY TO GET HIM ADMITTED TO INPT REHAB IF THE INSURANCE COMPANY IS WILLING TO CONSIDER THIS SECOND REQUEST. Clinical Quality Measures Admission Status Admission Dx PULMONARY HEMORRHAGE PNEUMONIA ATRIAL FIBRILLATION HYPERTENSION HYPERLIPIDEMIA ULCERATIVE COLITIS GENERALIZED WEAKNESS INSOMNIA CHRONIC ANTICOAGULATION USE BPH DVT/VTE Risk/Contraindication: Risk Factor Score Per Nursin RFS Level Per Nursing on Admit: 4+=Very High CODEY BARILLAS MD Sep 26, 2018 08:39
[2018-09-26] MEDS ORDERED: CHLORASEPTIC SPRAY 177 ML LIQUID MC PRN (09:30)
[2018-09-26] MEDS ORDERED: PATIENT MAY USE OWN MED,SINGLE MED PO SCH ×2 (09:45→21:00)
--- NOTE | 2018-09-26 09:52 | Progress Note - Cardiology ---
Cardiology SOAP Progress Note Subjective: Weak No cp or palp or syncope Shortness of breath somewhat better Objective: I&O/Vital Signs 09/25/18 09/26/18 09/26/18 09/26/18 22:53 00:01 01:00 02:21 Temp 97.8 Pulse 60 60 Resp 18 B/P (MAP) 176/79 (111) Pulse Ox 97 96 92 O2 Delivery High Flow N/C High Flow N/C High Flow N/C O2 Flow Rate 2.00 4.00 2.00 09/26/18 09/26/18 09/26/18 09/26/18 03:27 07:18 07:32 08:00 Temp 97.9 97.1 Pulse 60 60 60 Resp 20 18 B/P (MAP) 173/74 (107) 172/76 (108) Pulse Ox 95 94 94 O2 Delivery High Flow N/C High Flow N/C High Flow N/C O2 Flow Rate 4.00 2.00 4.00 09/26/18 00:00 Intake Total 350 ml Output Total 475 ml Balance -125 ml Weight (Pounds): 208 Weight (Ounces): 3.0 Weight (Calculated Kilograms): 94.672887 Constitutional: AAO x 3, well-developed, well-nourished Respiratory: No accessory muscle use, No respiratory distress; chest expansion is symmetric, chest is bilaterally symmetric, crackles (lower lobes; dimini shed), rhonchi (scattered over lg airways) Cardiovascular: regular rate-rhythm, S1 and S2, systolic murmur Gastrointestional: No tender; soft, round, audible bowel sounds Extremities: swelling (mod bilat LE swelling) Neurologic/Psychiatric: other (able to move all limbs equally, appropriately responsive, oriented x 3) Skin: normal color, warm/dry; No rash on exposed areas, No ulcerations on exposed areas Results/Procedures: Labs Laboratory Tests 09/25/18 12:09: Glucometer 188H 09/25/18 17:55: Glucometer 177H 09/26/18 00:07: Glucometer 198H 09/26/18 05:30: White Blood Count 8.7, Red Blood Count 3.53L, Hemoglobin 10.9L, Hematocrit 32L, Mean Corpuscular Volume 92, Mean Corpuscular Hemoglobin 31, Mean Corpuscular Hemoglobin Concent 34, Red Cell Distribution Width 14.9H, Platelet Count 216, Mean Platelet Volume 9.8, Neutrophils (%) (Auto) 84H, Lymphocytes (%) (Auto) 9L, Monocytes (%) (Auto) 6, Eosinophils (%) (Auto) 0, Basophils (%) (Auto) 0, Neutrophils # (Auto) 7.4, Lymphocytes # (Auto) 0.8L, Monocytes # (Auto) 0.6, Eosinophils # (Auto) 0.0, Basophils # (Auto) 0.0, Sodium Level 138, Potassium Level 4.4, Chloride Level 106, Carbon Dioxide Level 23, Anion Gap 9, Blood Urea Nitrogen 29H, Creatinine 0.74, Estimat Glomerular Filtration Rate > 60, BUN/Creatinine Ratio 39, Glucose Level 168H, Calcium Level 7.9L, Corrected Calcium 8.9, Phosphorus Level 3.1, Magnesium Level 2.2, Total Bilirubin 0.8, Aspartate Amino Transf (AST/SGOT) 27, Alanine Aminotransferase (ALT/SGPT) 37, Alkaline Phosphatase 57, Total Protein 4.9L, Albumin 2.8L 09/26/18 06:05: Glucometer 165H Microbiology 09/18/18 Blood Culture - Final, Complete No growth 09/24/18 Mycobacterial Culture - Preliminary, Resulted Laboratory Tests 09/25/18 03:25 09/26/18 05:30 A/P: Assessment: Pneumonia - management per Pulmonary/Medical services Hemoptysis and pulmonary hemorrhage necessitating discontinuation of Eliquis and aspirin Echo of 09/19/18: LVEF 60-65%, biatrial enlargement, mod MR, mild to mod TR, RVSP 45 mmHg 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 Cardiac cath from December 30, 2013 in which successful GAURI x 2, one to the proximal and one to the mid vessel LAD, was done. 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 Pacemaker currently in the VVIR mode, due to permanent atrial fib. The patient had a pulse generator change out on 12/18/2011. The device is functioning normally per last interrogation of September 23, 2018 (DIMITRIOS estimate 11 months) History of ulcerative colitis, being managed by Dr. Parsons and Dr. Seymour Stroke prophylaxis with Eliquis - currently being held d/t hemoptysis Sleep apnea for which he is following with Dr Mijares - Bi-pap therapy Hyperlipidemia being treated with rosuvastatin. Mild carotid arterial disease that has been followed by Dr. Mcdaniel History of cholecystectomy. 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
--- NOTE | 2018-09-26 09:54 | NUR ---
IRF Clinical information submitted to [facility] for review. Will continue to follow. Addendum: 09/27/18 at 1156 by JULY Akin MARLOW SS Received denial for admission from [facility]. Dr. Parsons notified. Dr. Parsons has chosen to pursue [id number]. Call placed to [facility] as a notification of [id number] request. [facility] physician to contact Dr. Parsons. Will continue to follow.
[2018-09-26] MEDS: LOPERAMIDE 2 MG (IMODIUM) TABLET PO SCH ×2 (10:22→21:26)
[2018-09-26] MEDS: LORATADINE (CLARITIN) 10 MG TAB PO SCH (10:23)
[2018-09-26] MEDS: PANTOPRAZOLE 40 MG (PROTONIX) VIAL IV SCH (10:23)
--- NOTE | 2018-09-26 10:43 | Physical Therapy Daily Note ---
PT Daily Note-Current Subjective Patient is alert and agreeable to participate with therapy. Family present. Pain Numeric Pain Scale: 0-No Pain Location: No Pain Reported Mental Status Patient Orientation: Normal For Age Attachments: Oxygen, Head Catheter, IV Transfers Therapy Code Descriptions/Definitions Functional [place] Measure: 0=Not Assessed/NA 4=Minimal Assistance 1=Total Assistance 5=Supervision or Setup 2=Maximal Assistance 6=Modified [place] 3=Moderate Assistance 7=Complete [place] Therapy Quality Codes: 6 Independent with activity with or without an assistive device 5 Patient requires set up or clean up by helper. Patient completes activity by themselves 4 Supervision or touching assist (CGA). [place] provide cues , steadying assist 3 The helper provides less than half the effort to complete the activity 2 The helper provides more than half the effort to complete the activity 1 Dependent. The helper does all the effort to complete an activity 7 Patient refused to complete or attempt activity 9 The patient did not perform the activity before the current illness or injury 88 Not attempted due to Medical conditions or safety concerns Transfers (B, C, W/C) (FIM): 1 Scootin Rollin Supine to/from Sit: 2 Sit to/from Stand: 1 Bed to/from Chair: 1 sit to stand lift utilized for transfer bed to recliner. Patient able to maintain sitting EOB x 8 min independently Weight Bearing Right Lower Extremity: Right Weight Bearing/Tolerated Left Lower Extremity: Left Weight Bearing/Tolerated Exercises Supine Ex: Ankle pumps, Quad Set, Heel Slides, Hip abd/add Supine Reps: 10 (AAROM with patient performing 80% of movement actively) Seated Therapy Exercises: Ankle pumps, Long arc quads Seated Reps: 15 (AROM bilaterally) Assessment Patient is up in recliner with needs met. Patient is progressing with treatment plan. From a PT stand point, patient would benefit from ARU to address functional strength and mobility to ensure safe return to home with family at maximum LOF. PT Short Term Goals Short Term Goals Time Frame: Oct 02, 2018 Transfers (B,C,W/C) (FIM): 3 Gait (FIM): 1 Gait Distance Comment: 3' Gait Level of Assist: 3 Gait Assistive Device: FWW PT Plan Treatment/Plan Treatment Plan: Continue Plan of Care Treatment Plan: Bed Mobility, Concurrent Therapy, Education, Functional Activit y [place], Functional Strength, Gait, Safety, Therapeutic Exercise, Transfers Treatment Duration: Oct 02, 2018 Frequency: 6 times per week Estimated Hrs Per Day: .25 hour per day (15-30') Patient and/or Family Agrees t: Yes Time/GCodes Time In: 935 Time Out: 1000 Total Billed Treatment Time: 25 Total Billed Treatment 1 visit EX 14 min FA 11 min CHIDI HUANG PT Sep 26, 2018 10:43
[2018-09-26] MEDS: CHLORASEPTIC LOZENGE MM SCH ×3 (11:00→21:28)
--- NOTE | 2018-09-26 11:22 | Pulmonary Progress Note ---
Subjective Time Seen by a Provider: 11:22 Subjective/Events-last exam PT is doing better however very weak. Sepsis Event Evaluation Height, Weight, BMI Height: 5'8.00" Weight: 208lbs. 3.0oz. 94.270007nv; 30.2 BMI Method:Stated Exam Exam Vital Signs Date Time Temp Pulse Resp B/P (MAP) Pulse Ox O2 Delivery O2 Flow Rate FiO2 09/26/18 08:00 97.1 60 18 172/76 (108) 94 High Flow N/C 4.00 09/26/18 07:32 94 High Flow N/C 2.00 09/26/18 07:18 60 09/26/18 03:27 97.9 60 20 173/74 (107) 95 High Flow N/C 4.00 09/26/18 02:21 92 High Flow N/C 2.00 09/26/18 01:00 60 09/26/18 00:01 97.8 60 18 176/79 (111) 96 High Flow N/C 4.00 09/25/18 22:53 97 High Flow N/C 2.00 09/25/18 21:00 92 High Flow N/C 5.00 09/25/18 19:25 98.1 61 18 186/80 (115) 97 High Flow N/C 4.00 09/25/18 19:00 60 09/25/18 16:20 97.9 64 20 181/81 (114) 91 High Flow N/C 5.00 09/25/18 15:35 96 High Flow N/C 10.00 09/25/18 15:00 60 170/79 (109) 09/25/18 12:24 63 09/25/18 12:00 96 High Flow N/C 10.00 09/25/18 12:00 98.8 65 18 170/27 (74) 91 Vapotherm 30.00 15.00 I & O 09/26/18 07:00 Intake Total 570 ml Output Total 1825 ml Balance -1255 ml Height & Weight Height: 5'8.00" Weight: 208lbs. 3.0oz. 94.953155zi; 30.2 BMI Method:Stated General Appearance: No Apparent Distress, WD/WN HEENT: Normal ENT Inspection Neck: Normal Inspection Respiratory: No Accessory Muscle Use, No Respiratory Distress, Decreased Breath Sounds Cardiovascular: Irregularly Irregular Capillary Refill: Less Than 3 Seconds Gastrointestinal: non tender, soft Extremity: Normal Range of Motion, Non Tender Neurologic/Psychiatric: Alert, Oriented x3 Skin: Normal Color, Warm/Dry Lymphatic: No Adenopathy Results Lab Laboratory Tests 09/25/18 03:25 09/26/18 05:30 Assessment/Plan Assessment/Plan Acute respiratory failure -much improved Doing well post extubation Pulmonary hemorrhage - Pt still having hemoptysis - secondary to Eliquis -Last hospitalization I check ANCA, Anti-Glomerular BM, and GENE - they were negative - echo shows EF 60-65% -monitor Hypokalemia -Replace PNA with SOB and hypoxia -will give lasix x 1 and hep lock IVF (pt c/o edema) -SVNs - Zosyn -Cultures are negative thus far Metabolic lactic acidosis - resolved -Monitor DM -SSI may need to start Levemir BRIDGER -Out pt JUAN Don DO Sep 26, 2018 11:22
[2018-09-26] MEDS ORDERED: FUROSEMIDE 40 MG/4 ML INJ (LASIX) IVP NR (11:30)
[2018-09-26 12:00] VITALS: BP 176/78
--- NOTE | 2018-09-26 12:39 | NUR ---
CM/SS. Brief discussion this a.m. with Dr. Parsons. Patient will need placement for continued care after acute stay. IRF/July has submitted to insurance and is waiting on a determination. Based on insurance response as well as patient overall status and appropriate level of care, community SNF may need to be pursued. Dr. Parsons has indicated preferred facility to be [facility], this has not been discussed with patient/family at this time. Referral will not be sent until insurance has made a determination regarding IRF submission.
--- NOTE | 2018-09-26 13:04 | Speech Therapy Daily Note ---
Speech Daily Progress Note Subjective Date Seen by Provider: Sep 26, 2018 Time Seen by Provider: 00:15 The patient states he thinks he is feeling better. Objective Patient is utilizing compensatory strategies as trained with oral intake with minimal cues. Assessment Assessment Current Status: Good Progress Treatment Plan Continue Plan of Care Speech Short Term Goals Short Term Goals Short Term Goals 1) The patient will tolerate the least restrictive diet level without s/s of aspiration at 90% or greater. 2) The patient will utilize compensatory strategies as trained for safe oral intake at 90% or greater given minimal verbal cues. Speech Alf Goals Alf Goals The patient will maintain adequate nutrition/hydration via safe effective swallow. Speech-Plan Patient/Family Goals Patient/Family Goals: The patient will return home with his upon discharge unless insurance approves his stay in inpatient rehab. Treatment Plan Speech Therapy Treatment Plan: Continue Plan of Care The patient is progressing as his medical status improves. Treatment Duration: Oct 02, 2018 Frequency: 3 times per week Estimated Hrs Per Day: .25 hour per day Rehab Potential: Guarded Barriers to Learning: Patient has had an extensive medical stay. Pt/Family Agrees to Plan: Yes Safety Risks/Education Teaching Recipient: Patient Teaching Methods: Discussion Response to Teaching: Verbalize Understanding Education Topics Provided: Safety of oral intake. Time Speech Therapy Time In: 10:30 Speech Therapy Time Out: 10:45 Total Billed Time: 15 Billed Treatment Time [address] Sep 26, 2018 13:04
--- NOTE | 2018-09-26 13:42 | Occupational Ther Daily Note ---
OT Current Status-Daily Note Subjective Pt alert, lying in bed. Daughter present in room. Pt stated that he was very fatigued this afternoon and daughter concurred saying that he had sat in chair for 2 hours. Mental Status/Objective Patient Orientation: Person, Place, Time, Situation Therapy Code Descriptions/Definitions Functional [place] Measure: 0=Not Assessed/NA 4=Minimal Assistance 1=Total Assistance 5=Supervision or Setup 2=Maximal Assistance 6=Modified [place] 3=Moderate Assistance 7=Complete [place] Attachments: Head Catheter, IV, Oxygen Other Treatment Pt's edema appears to have decreased in hands and face. Discussed and demonstrated isometric exercises to increase strength and activity tolerance. Pt was able to attempt 2 of the exercises then fatigued. Daughter present to assist pt with remembering exercises. Light resistance theraband given to pt to use in room. After therapy, pt lying in bed with call light/phone in reach. All needs met in room. Education OT Patient Education: Exercise program Teaching Recipient: Patient, Family Teaching Methods: Demonstration, Discussion Response to Teaching: Verbalize Understanding, Reinforcement Needed OT Short Term Goals Short Term Goals Time Frame: Oct 08, 2018 Eating(FIM): 4 Grooming(FIM): 4 Bathing(FIM): 4 Upper Body Dressing(FIM): 5 Lower Body Dressing(FIM): 3 Toileting(FIM): 4 Transfers (B,C,W/C) (FIM): 3 Toilet/Commode Transfer(FIM): 3 Additional Short Term Goals: 1-Demonstrate ADL Tasks, 2-Verbalize Understandin g, 3-ImproveStrength/Gilbert 1=Demonstrate adherence to instructed precautions during ADL tasks. 2=Patient will verbalize/demonstrate understanding of assistive devices/modifications for ADL. 3=Patient will improve strength/tolerance for activity to enable patient to perform ADL's. OT Fitting Room Inspector Goals Fitting Room Inspector Goals Time Frame: Oct 22, 2018 Eating (FIM): 6 Grooming(FIM): 6 Bathing(FIM): 5 Upper Body Dressing(FIM): 5 Lower Body Dressing(FIM): 5 Toileting(FIM): 5 Transfers (B,C,W/C) (FIM): 5 Toilet/Commode Transfer(FIM): 5 Shower Transfer(FIM): 5 Additional Goals: 1-Demonstrate ADL Tasks, 2-Verbalize Understanding, 3-ImproveStrength/Gilbert 1=Demonstrate adherence to instructed precautions during ADL tasks. 2=Patient will verbalize/demonstrate understanding of assistive devices/modifications for ADL. 3=Patient will improve strength/tolerance for activity to enable patient to perf orm ADL's. OT Education/Plan Problem List/Assessment Assessment: Decreased Activ Tolerance, Decreased UE Strength, Dependent Transfers, Edema, Impaired Bed Mobility, Impaired Coordination, Impaired Funct Balance, Impaired Self-Care Skills, Restricted Funct UE ROM Discharge Recommendations Plan/Recommendations: Continue POC Treatment Plan/Plan of Care Patient would benefit from OT for education, treatment and training to promote independence in ADL's, mobility, safety and/or upper extremity function for ADL's. Plan of Care: ADL Retraining, Caregiver Training, Functional Mobility, UE Funct Exercise/Act Treatment Duration: Oct 22, 2018 Frequency: 5 times per week Estimated Hrs Per Day: .5 hour per day Agreement: Yes Rehab Potential: Guarded Time/GCodes Start Time: 13:10 Stop Time: 13:20 Total Time Billed (hr/min): 10 Billed Treatment Time 1 visit-EX 1 (10 min) NERY ADAIR Sep 26, 2018 13:42
[2018-09-26] MEDS ORDERED: ACETAMINOPHEN 325 MG TABLET ONE (16:07)
[2018-09-26] MEDS: ACETAMINOPHEN 325 MG TABLET PO PRN ×2 (16:15→21:27)
[2018-09-26 16:35] VITALS: BP 166/83
[2018-09-26] MEDS: TAMSULOSIN 0.4 MG (FLOMAX) CAP PO SCH (18:44)
[2018-09-26 20:35] VITALS: BP 159/76
[2018-09-26] MEDS ORDERED: MELATONIN 10 MG PO SCH (21:00)
[2018-09-26] MEDS ORDERED: MESALAMINE 1.2 GM PO SCH (21:00)
[2018-09-27] MEDS: inSUlin ASPART (NovoLOG) 1 UNIT/0.01 ML (CHARGE PER UNIT) SC SCH ×3 (00:29→13:35)
[2018-09-27 00:45] VITALS: BP 159/76
[2018-09-27] MEDS: RT-ALBUTEROL/IPRATROPIUM 3 ML (DUONEB) VIAL INH SCH ×4 (02:20→15:03)
[2018-09-27] MEDS: meTOprolol 5 MG/5 ML (LOPRESSOR) VIAL IV SCH ×3 (02:54→10:15)
[2018-09-27 03:11] LABS: BASOPHILS % (AUTO) 0 % (0-10); EOSINOPHILS % (AUTO) 0 % (0-10); HEMATOCRIT 35 % (40-54); HEMOGLOBIN 11.6 G/DL (13.3-17.7); LYMPHOCYTES # (AUTO) 0.8 X 10^3 (1.0-4.0); LYMPHOCYTES % (AUTO) 8 % (12-44); MEAN CORPUSCULAR HEMOGLOBIN 30 PG (25-34); MEAN CORPUSCULAR HGB CONC 33 G/DL (32-36); MEAN CORPUSCULAR VOLUME 91 FL (80-99); MEAN PLATELET VOLUME 10.2 FL (7.4-10.4); MONOCYTES % (AUTO) 6 % (0-12); NEUTROPHILS # (AUTO) 8.7 X 10^3 (1.8-7.8); NEUTROPHILS % (AUTO) 85 % (42-75); PLATELET COUNT 224 10^3/uL (130-400); RED CELL DISTRIBUTION WIDTH 14.6 % (10.0-14.5); WHITE BLOOD COUNT 10.2 10^3/uL (4.3-11.0)
[2018-09-27 03:12] LABS: MONOCYTES # (AUTO) 0.6 X 10^3 (0.0-1.0)
[2018-09-27 03:18] LABS: MAGNESIUM 2.2 MG/DL (1.8-2.4); PHOSPHORUS 3.5 MG/DL (2.3-4.7)
[2018-09-27 03:19] VITALS: BP 162/87
[2018-09-27 03:36] LABS: ALANINE AMINOTRANSFERASE 44 U/L (0-55); ALBUMIN 2.9 GM/DL (3.2-4.5); ALKALINE PHOSPHATASE 59 U/L (40-136); BILIRUBIN,TOTAL 0.8 MG/DL (0.1-1.0); BUN/CREATININE RATIO 45; CALCIUM 8.1 MG/DL (8.5-10.1); CARBON DIOXIDE 23 MMOL/L (21-32); CHLORIDE 104 MMOL/L (98-107); CREATININE SERUM 0.78 MG/DL (0.60-1.30); GFR ESTIMATED > 60; GLUCOSE 179 MG/DL (70-105); POTASSIUM 4.3 MMOL/L (3.6-5.0); SODIUM 136 MMOL/L (135-145); TOTAL PROTEIN 5.2 GM/DL (6.4-8.2)
[2018-09-27] MEDS: ACETAMINOPHEN 325 MG TABLET PO PRN ×2 (04:12→09:34)
[2018-09-27] MEDS: methylPREDNISolone 40 MG/ML (Solu-MEDROL) VIAL IV SCH (05:19)
[2018-09-27] MEDS: CHLORASEPTIC LOZENGE MM SCH ×3 (05:20→14:19)
[2018-09-27] MEDS: LACTOBACILLUS ACIDOPHILUS (PROBIOTIC) CAPSULE PO SCH (06:43)
[2018-09-27 08:00] VITALS: BP 167/79
--- NOTE | 2018-09-27 09:19 | Pulmonary Progress Note ---
Subjective Time Seen by a Provider: 09:19 Subjective/Events-last exam Pulmonary singh pt is doing much better. Sepsis Event Evaluation Height, Weight, BMI Height: 5'8.00" Weight: 207lbs. 0.0oz. 93.597195bg; 30.2 BMI Method:Stated Exam Exam Vital Signs Date Time Temp Pulse Resp B/P (MAP) Pulse Ox O2 Delivery O2 Flow Rate FiO2 09/27/18 07:22 60 09/27/18 06:56 97 Nasal Cannula 1.50 09/27/18 03:19 96.2 64 18 162/87 (112) 97 Room Air 09/27/18 02:20 95 NIV Bilevel 09/27/18 01:00 61 09/27/18 00:45 97.4 57 21 159/76 (103) 97 NIV CPAP 09/26/18 22:50 94 Room Air 09/26/18 21:00 Nasal Cannula 1.00 09/26/18 20:35 98.1 63 18 159/76 (103) 96 Room Air 09/26/18 19:28 94 Room Air 09/26/18 19:00 61 09/26/18 16:35 97.6 60 20 166/83 (110) 96 Room Air 09/26/18 15:21 92 Room Air 09/26/18 12:51 60 09/26/18 12:00 97.6 60 18 176/78 (110) 95 High Flow N/C 4.00 09/26/18 11:33 94 High Flow N/C 1.00 09/26/18 09:30 Nasal Cannula 1.00 I & O 09/27/18 07:00 Intake Total 1490 ml Output Total 4160 ml Balance -2670 ml Height & Weight Height: 5'8.00" Weight: 207lbs. 0.0oz. 93.498542vu; 30.2 BMI Method:Stated General Appearance: No Apparent Distress, WD/WN, Other (Patient on vent) HEENT: PERRL/EOMI, Pharynx Normal Neck: Normal Inspection Respiratory: No Accessory Muscle Use, No Respiratory Distress Cardiovascular: Regular Rate, Rhythm, No Murmur Capillary Refill: Less Than 3 Seconds Gastrointestinal: non tender, soft Extremity: Normal Capillary Refill, Normal Range of Motion, Non Tender, No Calf Tenderness, Pedal Edema (TRACE) Neurologic/Psychiatric: Other (sedated and intubated) Skin: Normal Color, Warm/Dry Lymphatic: No Adenopathy Results Lab Laboratory Tests 09/26/18 05:30 09/27/18 02:50 Assessment/Plan Assessment/Plan Pulmonary hemorrhage -improved -Last hospitalization I check ANCA, Anti-Glomerular BM, and GENE - they were negative - echo shows EF 60-65% -monitor -Decrease solumedrol to Q 12 DM -SSI may need to start Levemir BRIDGER -Out pt JUAN Don DO Sep 27, 2018 09:19
[2018-09-27] MEDS: PANTOPRAZOLE 40 MG (PROTONIX) VIAL IV SCH (09:31)
[2018-09-27] MEDS: LOPERAMIDE 2 MG (IMODIUM) TABLET PO SCH (09:33)
[2018-09-27] MEDS: LORATADINE (CLARITIN) 10 MG TAB PO SCH (09:33)
--- NOTE | 2018-09-27 11:43 | Physical Therapy Daily Note ---
PT Daily Note-Current Subjective Patient and family agree to PT. Pain Numeric Pain Scale: 5-Moderate Pain Location: Right Location Body Site: Shoulder Pain Description: Acute Mental Status Patient Orientation: Normal For Age Attachments: Head Catheter, IV Transfers Therapy Code Descriptions/Definitions Functional [place] Measure: 0=Not Assessed/NA 4=Minimal Assistance 1=Total Assistance 5=Supervision or Setup 2=Maximal Assistance 6=Modified [place] 3=Moderate Assistance 7=Complete [place] Therapy Quality Codes: 6 Independent with activity with or without an assistive device 5 Patient requires set up or clean up by helper. Patient completes activity by themselves 4 Supervision or touching assist (CGA). [place] provide cues , steadying assist 3 The helper provides less than half the effort to complete the activity 2 The helper provides more than half the effort to complete the activity 1 Dependent. The helper does all the effort to complete an activity 7 Patient refused to complete or attempt activity 9 The patient did not perform the activity before the current illness or injury 88 Not attempted due to Medical conditions or safety concerns Transfers (B, C, W/C) (FIM): 1 Scootin Rollin Supine to/from Sit: 3 Sit to/from Stand: 1 Bed to/from Chair: 1 utilize sit to stand lift for transfers bed to commode to recliner (patient had BM requiring dependent assist to cleanse)/patient sat EOB independently x 10 min and performed bilateral LE seated exercises Weight Bearing Right Lower Extremity: Right Weight Bearing/Tolerated Left Lower Extremity: Left Weight Bearing/Tolerated Exercises Supine Ex: Ankle pumps, Quad Set, Heel Slides, Straight leg raise, Hip abd/add Supine Reps: 15 (AAROM bilaterally) Seated Therapy Exercises: Ankle pumps, Long arc quads Seated Reps: 15 (2 sets AROM) Assessment Patient much improved with gross motor skills. PT to continue to increase activity as tolerated by patient. PT Short Term Goals Short Term Goals Time Frame: Oct 02, 2018 Transfers (B,C,W/C) (FIM): 3 Gait (FIM): 1 Gait Distance Comment: 3' Gait Level of Assist: 3 Gait Assistive Device: FWW PT Plan Treatment/Plan Treatment Plan: Continue Plan of Care Treatment Plan: Bed Mobility, Concurrent Therapy, Education, Functional Activity [place], Functional Strength, Gait, Safety, Therapeutic Exercise, Transfers Treatment Duration: Oct 02, 2018 Frequency: 6 times per week Estimated Hrs Per Day: .25 hour per day (15-30') Patient and/or Family Agrees t: Yes Discharge Recommendations Therapy D/C Recommendations: Acute Rehab Time/GCodes Time In: 1005 Time Out: 1045 Total Billed Treatment Time: 40 Total Billed Treatment 1 visit EX x 2 25 min FA 20 min CHIDI HUANG PT Sep 27, 2018 11:43
--- NOTE | 2018-09-27 11:46 | Occupational Ther Daily Note ---
OT Current Status-Daily Note Subjective Pt alert, sitting in recliner. Physician present in room. Pt agrees to therapy. Daughter and present in room. Physician to order x-ray on pt's R shldr due to pain and decreased AROM. Mental Status/Objective Patient Orientation: Person, Place, Time, Situation Therapy Code Descriptions/Definitions Functional [place] Measure: 0=Not Assessed/NA 4=Minimal Assistance 1=Total Assistance 5=Supervision or Setup 2=Maximal Assistance 6=Modified [place] 3=Moderate Assistance 7=Complete [place] Attachments: Head Catheter, IV ADL-Treatment Pt stated that he was able to lift water pitcher and feed self today. Decreased edema in hands noted. Family washed all areas and completed grooming for pt. Dependent with lower body bathing/dressing. Other Treatment Did not attempt UE exercise with R UE due to pain in shldr. Using light resistance theraband pt able to complete L UE exercises with skilled instruction and assist to increase strength for functional transfers and ADLs. Pt tolerated 2 sets 10 reps though unable to complete full AROM with resistance. After therapy, daughter and present in room. All needs met in room. OT Short Term Goals Short Term Goals Time Frame: Oct 08, 2018 Eating(FIM): 4 Grooming(FIM): 4 Bathing(FIM): 4 Upper Body Dressing(FIM): 5 Lower Body Dressing(FIM): 3 Toileting(FIM): 4 Transfers (B,C,W/C) (FIM): 3 Toilet/Commode Transfer(FIM): 3 Additional Short Term Goals: 1-Demonstrate ADL Tasks, 2-Verbalize Understanding, 3-ImproveStrength/Gilbert 1=Demonstrate adherence to instructed precautions during ADL tasks. 2=Patient will verbalize/demonstrate understanding of assistive devices/modifications for ADL. 3=Patient will improve strength/tolerance for activity to enable patient to perform ADL's. OT Musical Instrument Supervisor Goals Fdc Goals Time Frame: Oct 22, 2018 Eating (FIM): 6 Grooming(FIM): 6 Bathing(FIM): 5 Upper Body Dressing(FIM): 5 Lower Body Dressing(FIM): 5 Toileting(FIM): 5 Transfers (B,C,W/C) (FIM): 5 Toilet/Commode Transfer(FIM): 5 Shower Transfer(FIM): 5 Additional Goals: 1-Demonstrate ADL Tasks, 2-Verbalize Understanding, 3- ImproveStrength/Gilbert 1=Demonstrate adherence to instructed precautions during ADL tasks. 2=Patient will verbalize/demonstrate understanding of assistive devices/modifications for ADL. 3=Patient will improve strength/tolerance for activity to enable patient to perform ADL's. OT Education/Plan Problem List/Assessment Assessment: Decreased Activ Tolerance, Decreased UE Strength, Dependent Transfers, Impaired Coordination, Impaired Funct Balance, Impaired Self-Care Skills, Restricted Funct UE ROM Discharge Recommendations Plan/Recommendations: Continue POC Treatment Plan/Plan of Care Patient would benefit from OT for education, treatment and training to promote independence in ADL's, mobility, safety and/or upper extremity function for ADL's. Plan of Care: ADL Retraining, Caregiver Training, Functional Mobility, UE Funct Exercise/Act Treatment Duration: Oct 22, 2018 Frequency: 5 times per week Estimated Hrs Per Day: .5 hour per day Agreement: Yes Rehab Potential: Guarded Time/GCodes Start Time: 11:20 Stop Time: 11:43 Total Time Billed (hr/min): 23 Billed Treatment Time 1 visit-ADL 1 (10 min) EX 1 (13 min) NERY ADAIR Sep 27, 2018 11:46
[2018-09-27 12:00] VITALS: BP 154/82
[2018-09-27] MEDS ORDERED: meTOprolol TARTRATE 25 MG (LOPRESSOR) TABLET PO NR (12:15)
--- NOTE | 2018-09-27 12:19 | Progress Note ---
Subjective Date Seen by a Provider: Sep 27, 2018 Time Seen by a Provider: 10:50 Subjective/Events-last exam PT REPORTS THAT HE HAS RIGHT SHOULDER PAIN AFTER BEING PULLED AWKWARDLY WHEN USING A SIT TO STAND LIFT. HE STATES THAT HE IS REALLY FATIGUED AFTER HIS INTUBATION AND HE IS QUITE WEAK COMPARED TO LAST WEEK. HE STATES THAT HIS SORE THROAT HAS IMPROVED. HE CONTINUED TO BE SHORT OF BREATH, BUT IT HAS IMPROVED WELL. Review of Systems General: Fatigue, Malaise HEENT: No Head Aches Pulmonary: Dyspnea; No Cough Cardiovascular: No: Chest Pain, Palpitations Gastrointestinal: Other (CHRONICALLY LOOSE STOOLS); No: Nausea, Abdominal Pain Genitourinary: Other (AL[place]AND[place]) Musculoskeletal: shoulder pain (RIGHT SHOULDER), arm pain Neurological: Weakness; No: Confusion Objective Exam Last Set of Vital Signs Vital Signs Date Time Temp Pulse Resp B/P (MAP) Pulse Ox O2 Delivery O2 Flow Rate FiO2 09/27/18 11:14 94 09/27/18 09:00 Nasal Cannula 2.00 09/27/18 08:00 97.8 61 20 167/79 (108) 09/25/18 10:50 30 Capillary Refill : Less Than 3 SecondsLess Than 3 Seconds I&O Intake and Output 09/27/18 00:00 Intake Total 1070 ml Output Total 4700 ml Balance -3630 ml Intake Oral 920 ml IV Total 150 ml Output Urine Total 4700 ml # Bowel Movements 2 General: Alert, Oriented X3, Cooperative, No Acute Distress HEENT: Atraumatic, PERRLA Neck: Supple Lungs: Other (CRACKLES IN BASES AND RHONCHI THROUGHOUT) Heart: Other (IRREGULARLY IRREGULAR) Abdomen: Normal Bowel Sounds, Soft, No Tenderness Extremities: No Clubbing, No Cyanosis Skin: No Rashes, No Breakdown Neuro: Normal Speech Psych/Mental Status: Mental Status NL, Mood NL Results Lab Laboratory Tests 09/26/18 12:33: Glucometer 171H 09/26/18 17:53: Glucometer 185H 09/27/18 00:18: Glucometer 204H 09/27/18 02:50: White Blood Count 10.2, Red Blood Count 3.83L, Hemoglobin 11.6L, Hematocrit 35L, Mean Corpuscular Volume 91, Mean Corpuscular Hemoglobin 30, Mean Corpuscular Hemoglobin Concent 33, Red Cell Distribution Width 14.6H, Platelet Count 224, Mean Platelet Volume 10.2, Neutrophils (%) (Auto) 85H, Lymphocytes (%) (Auto) 8L , Monocytes (%) (Auto) 6, Eosinophils (%) (Auto) 0, Basophils (%) (Auto) 0, Neutrophils # (Auto) 8.7H, Lymphocytes # (Auto) 0.8L, Monocytes # (Auto) 0.6, Eosinophils # (Auto) 0.0, Basophils # (Auto) 0.0, Sodium Level 136, Potassium Level 4.3, Chloride Level 104, Carbon Dioxide Level 23, Anion Gap 9, Blood Urea Nitrogen 35H, Creatinine 0.78, Estimat Glomerular Filtration Rate > 60, BU N/Creatinine Ratio 45, Glucose Level 179H, Calcium Level 8.1L, Corrected Calcium 9.0, Phosphorus Level 3.5, Magnesium Level 2.2, Total Bilirubin 0.8, Aspartate Amino Transf (AST/SGOT) 29, Alanine Aminotransferase (ALT/SGPT) 44, Alkaline Phosphatase 59, Total Protein 5.2L, Albumin 2.9L 09/27/18 05:32: Glucometer 170H Microbiology 09/18/18 Blood Culture - Final, Complete No growth 09/26/18 C. difficile GDH Antigen & Toxins - Final, Complete 09/24/18 Mycobacterial Culture - Preliminary, Resulted Assessment/Plan Assessment/Plan Assess & Plan/Chief Complaint PULMONARY HEMORRHAGE PNEUMONIA ATRIAL FIBRILLATION HYPERTENSION HYPERLIPIDEMIA ULCERATIVE COLITIS GENERALIZED WEAKNESS INSOMNIA CHRONIC ANTICOAGULATION USE BPH CRITICAL CARE MYOPATHY EMPHYSEMA PULMONARY HEMORRHAGE WITH PNEUMONIA - DISCUSSED WITH THE PATIENT AND HIS - WE ARE AT THE POINT THAT WE CANNOT CONTINUE TO KEEP HIM ON ELIQUIS - DR. JUNIOR IS IN AGREEMENT WITH THIS AND HE HAS RECOMMENDED AT LEAST A MONTH OFF OF THE ASPIRIN. PT IS STATUS POST INTUBATION AND EXTUBATION OVER THE WEEKEND AND EARLY THIS WEEK. HE HAS A SORE THROAT AND IS UNABLE TO DRINK OR EAT VERY MUCH. - IMPROVED AFTER STARTING ON CEPACOL LOZENGES YESTERDAY. ATRIAL FIBRILLATION - STATED ABOVE - HOLD ASPIRIN AND ELIQUIS - DEFER OTHER TREATMENT TO DR. 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 HYPERTENSION - STOPPED IV METOPROLOL TODAY - RESTARTED METOPROLOL ORALLY - DOSE DECREASED FROM 100MG BID TO 50MG BID AND WILL INCREASE IF NEEDED TO ACCOMMODATE HIS BLOOD PRESSURE CONTROL HYPERLIPIDEMIA - STABLE - HOLD STATIN FOR NOW DUE TO HIS CRITICAL ILLNESS MYOPATHY ULCERATIVE COLITIS - RESTARTED LIALDA ON 09/26/18 - IT WAS HELD FOR SEVERAL DAYS - CDIFF WAS NEGATIVE. GENERALIZED WEAKNESS - START THERAPY - WILL AGAIN TRY TO GET HIM ADMITTED TO INPT REHAB UNIT - HIS INSURANCE AGAIN DENIED THE ADMISSION, I WILL MAKE A PEER TO PEER PHONE CALL TODAY - I AM CURRENTLY WAITING - AND HAVE BEEN WAITING FOR SEVERAL HOURS ON A PHONE CALL FROM HIS INSURANCE COMPANY FOR THIS PHONE CALL. DUE TO HIS PROLONGED HOSPITALIZATION AND INTUBATION, HE HAS DEVELOPED CRITICAL CARE MYOPATHY AND HE IS QUITE WEAK COMPARED TO PRIOR TO THE INTUBATION PROCESS AND COMPARED TO HIS LAST HOSPITALIZATION. RIGHT SHOULDER/AC JOINT PAIN - AFTER AN INCIDENT WHEN HE WAS BEING HELPED WITH A SIT TO STAND LIFT, HIS ARMS WERE PULLED AND HE NOW HAS RIGHT SHOULDER PAIN - RX FOR VOLTAREN GEL WRITTEN FOR THE PATIENT. EMPHYSEMA - DX ON HIS CT SCAN - HE WILL NEED CONTINUED TREATMENT OF HIS ILLNESS WITH DR. HESS AN OUTPATIENT. INSOMNIA - RESTARTED HIS HOME MELATONIN DOSING. CHRONIC ANTICOAGULATION USE - STOPPED. BPH - RESTARTED TAMSULOSIN. I HAVE DISCUSSED WITH THE PT AND HIS THAT WE WILL TRY TO GET HIM ADMITTED TO INPT REHAB IF THE INSURANCE COMPANY IS WILLING TO CONSIDER THIS SECOND REQUEST WITH A PEER TO PEER AFTER DENIAL FROM HIS INSURANCE COMPANY. Clinical Quality Measures Admission Status Admission Dx PULMONARY HEMORRHAGE PNEUMONIA ATRIAL FIBRILLATION HYPERTENSION HYPERLIPIDEMIA ULCERATIVE COLITIS GENERALIZED WEAKNESS INSOMNIA CHRONIC ANTICOAGULATION USE BPH DVT/VTE Risk/Contraindication: Risk Factor Score Per Nursin RFS Level Per Nursing on Admit: 4+=Very High CODEY BARILLAS MD Sep 27, 2018 12:19
[2018-09-27] MEDS ORDERED: DICLOFENAC 1% GEL 100 GM (VOLTAREN) TUBE TOP SCH (13:00)
[2018-09-27] MEDS ORDERED: DICL100G18 TOP ×2 (15:42)
--- NOTE | 2018-09-27 15:48 | Discharge Summary ---
Diagnosis/Chief Complaint Date of Admission Sep 18, 2018 at 13:37 Date of Discharge Discharge Date: Sep 27, 2018 Discharge Time: 1600 Admission Diagnosis Admission Diagnosis PULMONARY HEMORRHAGE PNEUMONIA ATRIAL FIBRILLATION HYPERTENSION HYPERLIPIDEMIA ULCERATIVE COLITIS GENERALIZED WEAKNESS INSOMNIA CHRONIC ANTICOAGULATION USE BPH CRITICAL CARE MYOPATHY EMPHYSEMA Discharge Diagnosis PULMONARY HEMORRHAGE PNEUMONIA ATRIAL FIBRILLATION HYPERTENSION HYPERLIPIDEMIA ULCERATIVE COLITIS GENERALIZED WEAKNESS INSOMNIA CHRONIC ANTICOAGULATION USE BPH CRITICAL CARE MYOPATHY EMPHYSEMA Reason Hospital Visit PT IS A 78 Y/O MALE WHO IS KNOWN TO ME FROM CLINIC. HE WAS RECENTLY HOSPITALIZED FOR PNEUMONIA AND PULMONARY HEMORRHAGE. HE WAS DISCHARGED LAST WEEK AFTER HAVING SIGNIFICANT IMPROVEMENT AND CLEARING OF HIS INFECTION. WE HAD REQUESTED ADMISSION TO INPATIENT REHAB, BUT HIS INSURANCE COMPANY REFUSED TO ALLOW ADMISSION TO THE UNIT- WHICH IS UNFORTUNATE BECAUSE [facility]HUDA WOULD HAVE STILL BEEN HOSPITALIZED FOR THERAPY/STRENGTHENING AND WE PROBABLY WOULD HAVE BEEN ABLE TO AVOID THIS GRAVE OF AN ILLNESS WE WOULD HAVE CAUGHT HIS SYMPTOMS SOONER THAN HIS WAS ABLE TO DETECT. HE PRESENTED TO THE ER WITH RECURRENT HEMORRHAGE AND RECURRENT PNEUMONIA. HE WAS PLACED ON THE 4TH FLOOR BUT TRANSFERRED TO THE ICU DUE TO HIS DX, ACTIVE HEMORRHAGE AND WORSENING OXYGENATION. Discharge Summary Procedures: intubation Consultations dr darrell flannery Discharge Physical Examination Allergies: Coded Allergies: Sulfa (Sulfonamide Antibiotics) (Verified Allergy, Unknown, 08/31/18) montelukast (Unverified Adverse Reaction, Unknown, 06/08/16) Hallucinations per pt Vitals & I&Os Vital Signs Date Time Temp Pulse Resp B/P (MAP) Pulse Ox O2 Delivery O2 Flow Rate FiO2 09/27/18 15:05 95 09/27/18 13:00 61 09/27/18 12:00 98.2 20 154/82 (106) Room Air 09/27/18 09:00 2.00 09/25/18 10:50 30 General Appearance: Alert, Oriented X3, Cooperative, No Acute Distress HEENT: Atraumatic, PERRLA Respiratory: Other (IMPROVED AIR MOVEMENT THROUGHOUT) Cardiovascular: Regular Rate Abdominal: Normal Bowel Sounds, Soft, No Tenderness Extremities: No Clubbing, No Cyanosis Skin: No Rashes, No Breakdown Neuro: Normal Speech, Other (EXTREMELY WEAK UNABLE TO SIT UP IN BED WITHOUT TWO PERSON ASSISTANCE) Psych/Mental Status: Mental Status NL, Mood NL Hospital Course Was the Problem List Reviewed?: Yes PULMONARY HEMORRHAGE PNEUMONIA ATRIAL FIBRILLATION HYPERTENSION HYPERLIPIDEMIA ULCERATIVE COLITIS GENERALIZED WEAKNESS INSOMNIA CHRONIC ANTICOAGULATION USE BPH CRITICAL CARE MYOPATHY EMPHYSEMA PULMONARY HEMORRHAGE WITH PNEUMONIA - DISCUSSED WITH THE PATIENT AND HIS - WE ARE AT THE POINT THAT WE CANNOT CONTINUE TO KEEP HIM ON ELIQUIS - DR. FLANNERY IS IN AGREEMENT WITH THIS AND HE HAS RECOMMENDED AT LEAST A MONTH OFF OF THE ASPIRIN. PT IS STATUS POST INTUBATION AND EXTUBATION OVER THE WEEKEND AND EARLY THIS WEEK. HE HAS A SORE THROAT AND IS UNABLE TO DRINK OR EAT VERY MUCH. - IMPROVED AFTER STARTING ON CEPACOL LOZENGES YESTERDAY. ATRIAL FIBRILLATION - STATED ABOVE - HOLD ASPIRIN AND ELIQUIS - DEFER OTHER TREATMENT TO DR. 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 HYPERTENSION - STOPPED IV METOPROLOL TODAY - RESTARTED METOPROLOL ORALLY - DOSE DECREASED FROM 100MG BID TO 50MG BID AND WILL INCREASE IF NEEDED TO ACCOMMODATE HIS BLOOD PRESSURE CONTROL HYPERLIPIDEMIA - STABLE - HOLD STATIN FOR NOW DUE TO HIS CRITICAL ILLNESS MYOPATHY ULCERATIVE COLITIS - RESTARTED LIALDA ON 09/26/18 - IT WAS HELD FOR SEVERAL DAYS - CDIFF WAS NEGATIVE. GENERALIZED WEAKNESS - START THERAPY - WILL AGAIN TRY TO GET HIM ADMITTED TO INPT REHAB UNIT - HIS INSURANCE AGAIN DENIED THE ADMISSION, I WILL MAKE A PEER TO PEER PHONE CALL TODAY - I AM CURRENTLY WAITING - AND HAVE BEEN WAITING FOR SEVERAL HOURS ON A PHONE CALL FROM HIS INSURANCE COMPANY FOR THIS PHONE CALL. DUE TO HIS PROLONGED HOSPITALIZATION AND INTUBATION, HE HAS DEVELOPED CRITICAL CARE MYOPATHY AND HE IS QUITE WEAK COMPARED TO PRIOR TO THE INTUBATION PROCESS AND COMPARED TO HIS LAST HOSPITALIZATION. RIGHT SHOULDER/AC JOINT PAIN - AFTER AN INCIDENT WHEN HE WAS BEING HELPED WITH A SIT TO STAND LIFT, HIS ARMS WERE PULLED AND HE NOW HAS RIGHT SHOULDER PAIN - RX FOR VOLTAREN GEL WRITTEN FOR THE PATIENT. EMPHYSEMA - DX ON HIS CT SCAN - HE WILL NEED CONTINUED TREATMENT OF HIS ILLNESS WITH DR. HESS AN OUTPATIENT. INSOMNIA - RESTARTED HIS HOME MELATONIN DOSING. CHRONIC ANTICOAGULATION USE - STOPPED. BPH - RESTARTED TAMSULOSIN. I HAVE DISCUSSED WITH THE PT AND HIS THAT WE WILL TRY TO GET HIM ADMITTED TO INPT REHAB IF THE INSURANCE COMPANY IS WILLING TO CONSIDER THIS SECOND REQUEST WITH A PEER TO PEER AFTER DENIAL FROM HIS INSURANCE COMPANY. pt was accepted to inpt rehab and his insurance company agreed to admission - case #[id number] Pending Labs Laboratory Tests 09/27/18 12:41: Glucometer 203 Discharge Condition at discharge improved Instructions to patient/family Please see electronic discharge instructions given to patient. Discharge Medications Reviewed and agree with Discharge Medication list on patient's Discharge Instruction sheet Clinical Quality Measures DVT/VTE Risk/Contraindication: Risk Factor Score Per Nursin RFS Level Per Nursing on Admit: 4+=Very High CODEY BARILLAS MD Sep 27, 2018 15:48
--- NOTE | 2018-09-27 15:54 | Progress Note - Cardiology ---
Cardiology SOAP Progress Note Subjective: No cp or palp or syncope Shortness of breath better Feels stronger Swallowing still not normal Objective: I&O/Vital Signs 09/27/18 09/27/18 09/27/18 09/27/18 06:56 07:22 08:00 08:00 Temp 97.8 97.8 Pulse 60 61 61 Resp 20 20 B/P (MAP) 167/79 (108) 167/79 (108) Pulse Ox 97 95 95 O2 Delivery Nasal Cannula Room Air Room Air O2 Flow Rate 1.50 09/27/18 09/27/18 09/27/18 09/27/18 09:00 11:14 12:00 13:00 Temp 98.2 Pulse 61 61 Resp 20 B/P (MAP) 154/82 (106) Pulse Ox 94 96 O2 Delivery Nasal Cannula Room Air O2 Flow Rate 2.00 09/27/18 15:05 Pulse Ox 95 09/27/18 00:00 Intake Total 970 ml Output Total 3750 ml Balance -2780 ml Weight (Pounds): 207 Weight (Ounces): 0.0 Weight (Calculated Kilograms): 93.977983 Constitutional: AAO x 3, well-developed, well-nourished Respiratory: No accessory muscle use, No respiratory distress; chest expansion is symmetric, chest is bilaterally symmetric, crackles (lower lobes; diminished), rhonchi (scattered over lg airways) Cardiovascular: regular rate-rhythm, S1 and S2, systolic murmur Gastrointestional: No tender; soft, round, audible bowel sounds Extremities: swelling (mod bilat LE swelling) Neurologic/Psychiatric: other (able to move all limbs equally, appropriately responsive, oriented x 3) Skin: normal color, warm/dry; No rash on exposed areas, No ulcerations on exposed areas Results/Procedures: Labs Laboratory Tests 09/26/18 17:53: Glucometer 185H 09/27/18 00:18: Glucometer 204H 09/27/18 02:50: White Blood Count 10.2, Red Blood Count 3.83L, Hemoglobin 11.6L, Hematocrit 35L, Mean Corpuscular Volume 91, Mean Corpuscular Hemoglobin 30, Mean Corpuscular Hemoglobin Concent 33, Red Cell Distribution Width 14.6H, Platelet Count 224, Mean Platelet Volume 10.2, Neutrophils (%) (Auto) 85H, Lymphocytes (%) (Auto) 8L , Monocytes (%) (Auto) 6, Eosinophils (%) (Auto) 0, Basophils (%) (Auto) 0, Neutrophils # (Auto) 8.7H, Lymphocytes # (Auto) 0.8L, Monocytes # (Auto) 0.6, Eosinophils # (Auto) 0.0, Basophils # (Auto) 0.0, Sodium Level 136, Potassium Level 4.3, Chloride Level 104, Carbon Dioxide Level 23, Anion Gap 9, Blood Urea Nitrogen 35H, Creatinine 0.78, Estimat Glomerular Filtration Rate > 60, BUN/Cre atinine Ratio 45, Glucose Level 179H, Calcium Level 8.1L, Corrected Calcium 9.0, Phosphorus Level 3.5, Magnesium Level 2.2, Total Bilirubin 0.8, Aspartate Amino Transf (AST/SGOT) 29, Alanine Aminotransferase (ALT/SGPT) 44, Alkaline Phosphatase 59, Total Protein 5.2L, Albumin 2.9L 09/27/18 05:32: Glucometer 170H 09/27/18 12:41: Glucometer 203H Microbiology 09/18/18 Blood Culture - Final, Complete No growth 09/26/18 C. difficile GDH Antigen & Toxins - Final, Complete 09/24/18 Mycobacterial Culture - Preliminary, Resulted Laboratory Tests 09/26/18 05:30 09/27/18 02:50 A/P: Assessment: Pneumonia - management per Pulmonary/Medical services Hemoptysis and pulmonary hemorrhage necessitating discontinuation of Eliquis and aspirin Echo of 09/19/18: LVEF 60-65%, biatrial enlargement, mod MR, mild to mod TR, RVSP 45 mmHg 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 Cardiac cath from December 30, 2013 in which successful GAURI x 2, one to the proximal and one to the mid vessel LAD, was done. 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 Pacemaker currently in the VVIR mode, due to permanent atrial fib. The patient had a pulse generator change out on 12/18/2011. The device is functioning normally per last interrogation of September 23, 2018 (DIMITRIOS estimate 11 months) History of ulcerative colitis, being managed by Dr. Parsons and Dr. Seymour Stroke prophylaxis with Eliquis - currently being held d/t hemoptysis Sleep apnea for which he is following with Dr Mijares - Bi-pap therapy Hyperlipidemia being treated with rosuvastatin. Mild carotid arterial disease that has been followed by Dr. Mcdainel History of cholecystectomy. 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
--- NOTE | 2018-09-27 16:20 | NUR ---
JOHN SS FROM [facility] HERE AND REPORTS PT APPROVED FOR ARU. ORDERS FROM DR. BARILLAS. FAMILY MADE AWARE AND TO [facility] ROOM 228 WITH OT. FAMILY TOOK HOME MEDS. REPORT TO FRANCISCO.
[2018-09-27] MEDS ORDERED: meTOprolol TARTRATE 50 MG (LOPRESSOR) TAB PO SCH (21:00)
[2018-09-27] MEDS ORDERED: methylPREDNISolone 40 MG/ML (Solu-MEDROL) VIAL IV SCH (21:00)
== END 2018-09-27 16:20 | DRG 208 ==
LOC: EDUNIT# 08:42 → ER 08:43 → 4TH 13:37 → ICU 17:45 → 4TH 09-25 10:42
PROVIDERS: ADMIT Family Medicine; ATTEND Family Medicine
PROC: 5A1945Z Respiratory Ventilation, 24-96 Consecutive Hours (ICD-10-PCS; principal; 2018-09-21)
PROC: 0BH17EZ Insertion of Endotracheal Airway into Trachea, Via Natural or Artificial Opening (ICD-10-PCS; 2018-09-21)
PROC: 0B9D8ZX Drainage of Right Middle Lung Lobe, Via Natural or Artificial Opening Endoscopic, Diagnostic (ICD-10-PCS; 2018-09-21)
PROC: 0B978ZX Drainage of Left Main Bronchus, Via Natural or Artificial Opening Endoscopic, Diagnostic (ICD-10-PCS; 2018-09-21)
PROC: 0B938ZX Drainage of Right Main Bronchus, Via Natural or Artificial Opening Endoscopic, Diagnostic (ICD-10-PCS; 2018-09-21)
PROC: 0B938ZX Drainage of Right Main Bronchus, Via Natural or Artificial Opening Endoscopic, Diagnostic (ICD-10-PCS; 2018-09-24)
PROC: 0B978ZX Drainage of Left Main Bronchus, Via Natural or Artificial Opening Endoscopic, Diagnostic (ICD-10-PCS; 2018-09-24)
PROC: 0B9D8ZX Drainage of Right Middle Lung Lobe, Via Natural or Artificial Opening Endoscopic, Diagnostic (ICD-10-PCS; 2018-09-24)
DX: R04.89 Hemorrhage from other sites in respiratory passages (principal); T45.515A Adverse effect of anticoagulants, initial encounter; J18.1 Lobar pneumonia, unspecified organism; J96.01 Acute respiratory failure with hypoxia; E87.2 Acidosis; G72.81 Critical illness myopathy; I25.810 Atherosclerosis of coronary artery bypass graft(s) without angina pectoris; K51.90 Ulcerative colitis, unspecified, without complications; I48.92 Unspecified atrial flutter; I48.2 Chronic atrial fibrillation; J43.9 Emphysema, unspecified; I25.10 Atherosclerotic heart disease of native coronary artery without angina pectoris; E87.6 Hypokalemia; E11.9 Type 2 diabetes mellitus without complications; I11.0 Hypertensive heart disease with heart failure; I50.9 Heart failure, unspecified; I08.1 Rheumatic disorders of both mitral and tricuspid valves; E78.00 Pure hypercholesterolemia, unspecified; N40.0 Benign prostatic hyperplasia without lower urinary tract symptoms; G47.33 Obstructive sleep apnea (adult) (pediatric); G47.00 Insomnia, unspecified; M25.511 Pain in right shoulder; J30.2 Other seasonal allergic rhinitis; Z87.891 Personal history of nicotine dependence; Z79.01 Long term (current) use of anticoagulants; Z95.1 Presence of aortocoronary bypass graft; Z95.0 Presence of cardiac pacemaker; Z95.5 Presence of coronary angioplasty implant and graft; Z85.820 Personal history of malignant melanoma of skin
CPT/HCPCS: 36415; 36600; 71045; 71275; 76937; 80048; 80053; 80162; 81000; 82805; 82962; 83605; 83735; 83880; 83970; 84100; 84478; 85007; 85025; 85027; 85379; 85610; 85730; 87015; 87040; 87070; 87077; 87101; 87106; 87116; 87186; 87205; 87206; 87324; 87449; 88112; 88305; 88312; 93306; 94002; 94003; 94640; 94660; 94664; 94760; 94799; 96365; 96375

== ENCOUNTER 2018-09-27 15:48 | Inpatient (IN) | payer MEDICARE ==
[~2018-09-27] VITALS: Ht 167.6 cm; Wt 82.6 kg
[2018-09-27 15:30] VITALS: BP 155/80
[~2018-09-27 15:48] MED LIST changes: +CHOL5000 PO; +DICL100G18 TOP; +DILT300C49 PO; +LOPE-134 PO; +LORA10TA7 PO; +MAGN250T2 PO; +MELA10TA2 PO; +MESA1.2T3 PO; +TR1C15 TOP
--- NOTE | 2018-09-27 16:25 | NUR ---
Admitted to room 228, with an admitting diagnosis of debility, on 09-27-18 from 4th via , accompanied by staff].YEHUDA LAW introduced to surroundings, call light, bed controls, phone, TV, temperature control, lights, meal times, smoking policy, visitor policy, side rail policy, bathrooms and showers. Patient Rights given to patient in the handbook.YEHUDA LAW verbalizes understanding that [facility] is not responsible for the loss or damage to any personal effects or valuables that are kept in the patients posession during their hospitalization. The following Patient Care Plans were discussed with the : Discharge Planning, ,, and . YEHUDA LAW verbalizes understanding of Interdisciplinary Patient Education. Patient and/or family were informed about the Rapid Response Team and its purpose. Patient received Patient Rights Booklet, which includes Privacy Act Statement and Data Collection Information Summary.
--- NOTE | 2018-09-27 17:00 | Occupational Therapy Eval ---
OT Evaluation-General/PLF Medical Diagnosis Admission Date September 27, 2018 Medical Diagnosis: pulmonary hemorrhage, pneumonia Onset Date: Sep 15, 2018 Therapy Diagnosis Therapy Diagnosis: impaired self care skills Height/Weight Height (Feet): 5 Height (Inches): 8.00 Weight (Pounds): 207 Weight (Ounces): 0.0 Referral Physician: Rani Medical History Pertinent Medical History: CABG, CAD, COPD, Heart Failure, HTN, [place] Reviewed History: Yes Social History Home: Multilevel (bedroom and bathroom are on main floor) Current Living Status: Spouse Steps Into Home: 1 ADL-Prior Level of Function Therapy Code Descriptions/Definitions Functional [place] Measure: 0=Not Assessed/NA 4=Minimal Assistance 1=Total Assistance 5=Supervision or Setup 2=Maximal Assistance 6=Modified [place] 3=Moderate Assistance 7=Complete [place] Therapy Quality Codes: 6 Independent with activity with or without an assistive device 5 Patient requires set up or clean up by helper. Patient completes activity by themselves 4 Supervision or touching assist (CGA). [place] provide cues , steadying assist 3 The helper provides less than half the effort to complete the activity 2 The helper provides more than half the effort to complete the activity 1 Dependent. The helper does all the effort to complete an activity 7 Patient refused to complete or attempt activity 9 The patient did not perform the activity before the current illness or injury 88 Not attempted due to Medical conditions or safety concerns Functional Abilities and Goals: Independent: Patient completed the activities by him/herself, with or without an assistive device, with no assistance from a helper. Needed Some Help: Patient needed partial assistance from another person to complete activities. Dependent: A helper completed the activities for the patient. Unknown: Not Applicable: ADL PLOF Comments Pt reports being independent prior to illness. States he is normally active and does not use any AD. DME/Equipment: Bath Chair, Bedside Commode, Tub/Shower Drive Self: Yes OT Current Status Subjective Pt agreeable to therapy. Transfer to ARU. Pt states he's had right shoulder pain today, but doesn't currently have any pain. Mental Status/Objective Patient Orientation: Person, Place Attachments: Head Catheter Current Glasses/Contacts: Yes (reading) Hearing Aids: No Dentures/Partials: Yes Hand Dominance: Right Upper Extremity ROM Decreased right shoulder ROM secondary to pain Left UE mildly decreased at shoulder. Remainder grossly functional Upper Extremity Coordination Fair Upper Extremity Sensation Intact per pt report ADL-Treatment ADL-Current Assist to don socks. Supine to sit with assist for LE and trunk. Pt has decreased sitting balance, requires min assist to correct. Pt transferred to w/c with sit to stand lift. UE assessment completed while seated in w/c. Pt states he is feeling stronger and was able to feed himself today. Education provided regarding role of OT and plan of care. Pt states understanding of education and is in agreement with plan of care. Pt sitting in chair with needs met, family and nurse aide present. Transfers (B, C, W/C) (FIM): 1 Education OT Patient Education: Rehab process Teaching Recipient: Patient Teaching Methods: Discussion Response to Teaching: Verbalize Understanding OT Short Term Goals Short Term Goals Time Frame: Oct 04, 2018 Grooming(FIM): 4 Bathing(FIM): 3 Upper Body Dressing(FIM): 4 Lower Body Dressing(FIM): 3 Toileting(FIM): 3 Toilet/Commode Transfer(FIM): 3 Additional Short Term Goals: 1-Demonstrate ADL Tasks, 2-Verbalize Understanding, 3-ImproveStrength/Gilbert 1=Demonstrate adherence to instructed precautions during ADL tasks. 2=Patient will verbalize/demonstrate understanding of assistive devices/modifications for ADL. 3=Patient will improve strength/tolerance for activity to enable patient to perform ADL's. OT Administrative Support Assistant Goals Assisted Goals Time Frame: Oct 25, 2018 Eating (FIM): 6 Eating (QC): 6 Groomin Oral Hygiene (QC): 6 Bathing(FIM): 5 Shower/Bathe Self (QC): 5 Upper Body Dressing(FIM): 5 Upper Body Dressing (QC): 5 Lower Body Dressing(FIM): 5 Lower Body Dressing (QC): 5 On/Off Footwear (QC): 5 Toileting(FIM): 5 Toileting Hygiene (QC): 5 Toilet/Commode Transfer(FIM): 5 Toilet/Commode Transfer (QC): 5 Shower Transfer(FIM): 5 Additional Goals: 1-Demonstrate ADL Tasks, 2-Verbalize Understanding, 3- ImproveStrength/Gilbert 1=Demonstrate adherence to instructed precautions during ADL tasks. 2=Patient will verbalize/demonstrate understanding of assistive devices/modifications for ADL. 3=Patient will improve strength/tolerance for activity to enable patient to perform ADL's. OT Education/Plan Problem List/Assessment Assessment: Decreased Activ Tolerance, Decreased UE Strength, Dependent Transfers, Impaired Funct Balance, Impaired I ADL's, Impaired Self-Care Skills Pt demonstrates decreased mobility, strength, activity tolerance, and ADL functioning. Pt to benefit from skilled OT intervention for ADL training, transfers, strengthening, and home safety education to increase level of ind ependence and allow safe discharge home. Discharge Recommendations Plan/Recommendations: Continue POC Treatment Plan/Plan of Care Treatment,Training & Education: Yes Patient would benefit from OT for education, treatment and training to promote independence in ADL's, mobility, safety and/or upper extremity function for ADL's. Plan of Care: ADL Retraining, Functional Mobility, Group Exercise/Act as Ind, UE Funct Exercise/Act Treatment Duration: Oct 25, 2018 Frequency: At least 5 of 7 days/Wk (IRF) Estimated Hrs Per Day: 1.5 hours per day Agreement: Yes Rehab Potential: Good Time/GCodes Start Time: 16:20 Stop Time: 16:40 Total Time Billed (hr/min): 20 Billed Treatment Time 1 visit, ALLAN(20minutes) QUENTIN CLARKE OT Sep 27, 2018 17:00
[2018-09-27] MEDS ORDERED: hydrALAZINE (APRESOLINE) 25 MG TAB PO PRN (17:15)
[2018-09-27] MEDS ORDERED: ALPRAZolam 0.25 MG (XANAX) TAB PO PRN (17:15)
[2018-09-27] MEDS ORDERED: HYDROcodone/APAP 5 MG/325 MG (LORTAB) TAB PO PRN (17:15)
[2018-09-27] MEDS ORDERED: DOCUSATE SODIUM 100 MG (COLACE) CAP PO PRN (17:15)
[2018-09-27] MEDS ORDERED: CHLORASEPTIC SPRAY 177 ML LIQUID MC PRN (17:15)
[2018-09-27] MEDS ORDERED: CALCIUM CARBONATE 500 MG (TUMS) TAB.CHEW PO PRN (17:15)
[2018-09-27] MEDS ORDERED: ACETAMINOPHEN 325 MG TABLET PO PRN (17:15)
[2018-09-27] MEDS ORDERED: diphenhydrAMINE 25 MG TAB (BENADRYL) PO PRN (17:15)
[2018-09-27] MEDS ORDERED: FLUTICASONE NASAL SPRAY (FLONASE) 16 GM BTL NS PRN (17:15)
[2018-09-27] MEDS ORDERED: ONDANSETRON 4 MG/2 ML (SDV) Z0FRAN IVP PRN (17:15)
[2018-09-27] MEDS ORDERED: LOPERAMIDE 2 MG (IMODIUM) TABLET PO PRN (17:15)
--- OUTSIDE RECORDS SUMMARY | 2018-09-27 17:59 | XMS REPORT | Clinical Summary ---
Author Author [facility] Organization [facility] Address Unknown Phone Unavailable Care Team Providers Care Management Sme Name Role Phone Steffany Parsons MD PCP Source Comments Some departments are not documenting in the electronic medical record. If you d o not see the information that you expected, contact [facility] of Information [facility] [employer] Information Management department at [phone] for further assistan ce in locating additional records.[facility] Allergies Not on File Medications End Date Status Medication Sig Dispensed Refills Start Date Active rosuvastatin (CRESTOR) 5 Take 0.5 mg 0 mg tabletIndications: by mouth Paroxysmal atrial daily. fibrillation (HCC), Coronary artery disease involving coronary bypass graft of [place] heart with angina pectoris (HCC) Active digoxin (LANOXIN) 250 mcg Take 0.25 mcg 0 tabletIndications: by mouth Paroxysmal atrial daily. fibrillation (HCC), Coronary artery disease involving coronary bypass graft of [place] heart with angina pectoris (HCC) Active POTASSIUM CHLORIDE Take 20 mEq 0 (KLOR-CON M20 by mouth PO)Indications: daily. Paroxysmal atrial fibrillation (HCC), Coronary artery disease involving coronary bypass graft of [place] heart with angina pectoris (HCC) Active FUROSEMIDE (LASIX Take 40 mg by 0 PO)Indications: mouth daily. Paroxysmal atrial fibrillation (HCC), Coronary artery disease involving coronary bypass graft of [place] heart with angina pectoris (HCC) Active losartan (COZAAR) 25 mg Take 25 mg by 0 tabletIndications: mouth daily. Paroxysmal atrial fibrillation (HCC), Coronary artery disease involving coronary bypass graft of [place] heart with angina pectoris (HCC) Active dabigatran (PRADAXA) 150 Take 150 mg 0 mg capsuleIndications: by mouth Paroxysmal atrial twice daily. fibrillation (HCC), Coronary artery disease involving coronary bypass graft of [place] heart with angina pectoris (HCC) Active ASPIRIN POIndications: Take 81 mg by 0 Paroxysmal atrial mouth daily. fibrillation (HCC), Coronary artery disease involving coronary bypass graft of [place] heart with angina pectoris (HCC) Active MULTIVITAMINS WITH Take by 0 FLUORIDE (MULTI-VITAMIN mouth daily. 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 fibrillation (HCC), Coronary artery disease involving coronary bypass graft of [place] heart with angina pectoris (HCC) Active LOPERAMIDE HCL (IMODIUM Take by 0 PO)Indications: mouth. 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 Paroxysmal atrial fibrillation (HCC), Coronary artery disease involving coronary bypass graft of [place] heart with angina pectoris (HCC) Active metoprolol (LOPRESSOR) Take 100 mg 0 100 mg tabletIndications: by mouth Paroxysmal atrial twice daily. 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 12/30/13: LHC: EF 45-50%. No PCI. Severe [place] CAD. 03/22/15: LHC: Severe multivessel atherosclerotic CAD. Normal LV size. Mild LV dysfunction EF 45%. No evidence of HF at rest. Previously stented proximal and middle LAD, widely patent, with no in-stent restenosis. Coronary artery disease involving coronary bypass graft of [place] heart 03/15/2015 with angina pectoris HTN (hypertension) [...] Comments Vital Sign 110/78 03/15/2015 3:03 PM LOG CHECK SCALER Blood Pressure 94 03/15/2015 3:03 PM LOG CHECK SCALER Pulse - - Temperature - - Respiratory Rate - - Oxygen Saturation - - Inhaled Oxygen Concentration 88.9 kg (196 lb) 03/15/2015 3:03 PM LOG CHECK SCALER Weight 171.5 cm (5' 7.5") 03/15/2015 3:03 PM LOG CHECK SCALER Height 30.24 03/15/2015 3:03 PM LOG CHECK SCALER Body Mass Index Plan of Treatment Health [...] MEDICARE resent REPLACEMEN T Advance Directives Patient Barking Machine Feeder Explanation Type Date Recorded Advance 03/12/2015 10:28 AM Directive/DPOA
[2018-09-27] MEDS: inSUlin ASPART (NovoLOG) 1 UNIT/0.01 ML (CHARGE PER UNIT) SC SCH (18:24)
[2018-09-27] MEDS: LOSARTAN 25 MG (COZAAR) TAB PO SCH (18:31)
[2018-09-27] MEDS: TAMSULOSIN 0.4 MG (FLOMAX) CAP PO SCH (18:31)
[2018-09-27] MEDS: RT-ALBUTEROL/IPRATROPIUM 3 ML (DUONEB) VIAL INH SCH ×2 (18:34→22:42)
[2018-09-27] MEDS: methylPREDNISolone 40 MG/ML (Solu-MEDROL) VIAL IV SCH (20:24)
[2018-09-27] MEDS: meTOprolol TARTRATE 50 MG (LOPRESSOR) TAB PO SCH (20:25)
[2018-09-27] MEDS: LOPERAMIDE 2 MG (IMODIUM) TABLET PO SCH (20:27)
[2018-09-27] MEDS: CHLORASEPTIC LOZENGE MM SCH (20:27)
[2018-09-27] MEDS: MESALAMINE 1.2 GM PO SCH (20:29)
[2018-09-27] MEDS: SENNA W/DOCUSATE (SENOKOT S) TABLET PO SCH (20:31)
[2018-09-27] MEDS: DICLOFENAC 1% GEL 100 GM (VOLTAREN) TUBE TOP SCH (20:36)
[2018-09-27] MEDS: MELATONIN 3 MG TABLET PO PRN (20:36)
[2018-09-27 23:50] VITALS: BP 125/57
[2018-09-28] MEDS: inSUlin ASPART (NovoLOG) 1 UNIT/0.01 ML (CHARGE PER UNIT) SC SCH ×4 (00:59→18:08)
[2018-09-28] MEDS: RT-ALBUTEROL/IPRATROPIUM 3 ML (DUONEB) VIAL INH SCH ×6 (02:26→22:32)
[2018-09-28 03:55] VITALS: BP 160/77
[2018-09-28 06:01] LABS: BASOPHILS # (AUTO) 0.1 10^3/uL (0.0-0.1); BASOPHILS % (AUTO) 1 % (0-10); EOSINOPHILS % (AUTO) 0 % (0-10); HEMATOCRIT 36 % (40-54); HEMOGLOBIN 12.1 G/DL (13.3-17.7); LYMPHOCYTES # (AUTO) 1.1 X 10^3 (1.0-4.0); LYMPHOCYTES % (AUTO) 8 % (12-44); MEAN CORPUSCULAR HEMOGLOBIN 31 PG (25-34); MEAN CORPUSCULAR HGB CONC 34 G/DL (32-36); MEAN CORPUSCULAR VOLUME 91 FL (80-99); MEAN PLATELET VOLUME 9.4 FL (7.4-10.4); MONOCYTES # (AUTO) 1.3 X 10^3 (0.0-1.0); MONOCYTES % (AUTO) 11 % (0-12); NEUTROPHILS # (AUTO) 10.1 X 10^3 (1.8-7.8); NEUTROPHILS % (AUTO) 80 % (42-75); PLATELET COUNT 216 10^3/uL (130-400); RED CELL DISTRIBUTION WIDTH 14.5 % (10.0-14.5); WHITE BLOOD COUNT 12.6 10^3/uL (4.3-11.0)
[2018-09-28 06:22] LABS: ALANINE AMINOTRANSFERASE 51 U/L (0-55); ALKALINE PHOSPHATASE 66 U/L (40-136); BILIRUBIN,TOTAL 0.7 MG/DL (0.1-1.0); BUN/CREATININE RATIO 43; CALCIUM 8.2 MG/DL (8.5-10.1); CARBON DIOXIDE 27 MMOL/L (21-32); CHLORIDE 102 MMOL/L (98-107); CREATININE SERUM 0.77 MG/DL (0.60-1.30); GFR ESTIMATED > 60; GLUCOSE 132 MG/DL (70-105); POTASSIUM 4.2 MMOL/L (3.6-5.0); SODIUM 138 MMOL/L (135-145); TOTAL PROTEIN 5.3 GM/DL (6.4-8.2)
[2018-09-28] MEDS: CHLORASEPTIC LOZENGE MM SCH ×4 (06:34→20:45)
[2018-09-28] MEDS: LACTOBACILLUS ACIDOPHILUS (PROBIOTIC) CAPSULE PO SCH ×2 (06:36→18:03)
[2018-09-28] MEDS: PANTOPRAZOLE 40 MG (PROTONIX) TAB PO SCH (06:37)
[2018-09-28 08:00] VITALS: BP 145/71
[2018-09-28] MEDS: SENNA W/DOCUSATE (SENOKOT S) TABLET PO SCH ×2 (08:01→20:48)
[2018-09-28] MEDS: meTOprolol TARTRATE 50 MG (LOPRESSOR) TAB PO SCH ×2 (09:53→20:46)
[2018-09-28] MEDS: DICLOFENAC 1% GEL 100 GM (VOLTAREN) TUBE TOP SCH ×4 (09:53→20:54)
[2018-09-28] MEDS: DILTIAZEM 300 MG (CARDIZEM CD) CAP PO SCH (09:53)
[2018-09-28] MEDS: methylPREDNISolone 40 MG/ML (Solu-MEDROL) VIAL IV SCH ×2 (09:53→20:45)
[2018-09-28] MEDS: LORATADINE (CLARITIN) 10 MG TAB PO SCH (09:54)
[2018-09-28] MEDS: LOPERAMIDE 2 MG (IMODIUM) TABLET PO SCH ×2 (09:54→20:46)
[2018-09-28 12:00] VITALS: BP 150/77
--- NOTE | 2018-09-28 12:31 | Occupational Ther Daily Note ---
OT Current Status-Daily Note Subjective Pt alert, sitting in recliner. Pt agrees to therapy. No c/o pain at this time. Mental Status/Objective Patient Orientation: Person, Place, Time, Situation Therapy Code Descriptions/Definitions Functional [place] Measure: 0=Not Assessed/NA 4=Minimal Assistance 1=Total Assistance 5=Supervision or Setup 2=Maximal Assistance 6=Modified [place] 3=Moderate Assistance 7=Complete [place] Attachments: Head Catheter, IV (3) ADL-Treatment Co-treat this session, skills of 2 therapists are required for skill instruction to improve standing balance, sitting dynamic balance, poor UE/LE strength and transfers, pain with movement and need to coordinate balance and mobility while performing ADL's. PT worked on functional transfers, standing balance and LE strength. OT worked on functional transfers, UE strengthening and ADLs. Pt agrees to shower. Dependent with transfers, using sit to stand lift. Pt was a ble to complete all areas except lower feet, back of head and buttocks for bathing/drying. Max A for upper body dressing and dependent for lower body dressing. Pt able to apply own deodorant, completed pt's oral care. Pt able to comb hair except back of head. Assist to open packages,containers and cut food then pt able to eat with regular utensils. Therapy Code Descriptions/Definitions Functional [place] Measure: 0=Not Assessed/NA 4=Minimal Assistance 1=Total Assistance 5=Supervision or Setup 2=Maximal Assistance 6=Modified [place] 3=Moderate Assistance 7=Complete [place] Therapy Quality Codes: 6 Independent with activity with or without an assistive device 5 Patient requires set up or clean up by helper. Patient completes activity by themselves 4 Supervision or touching assist (CGA). [place] provide cues , steadying assist 3 The helper provides less than half the effort to complete the activity 2 The helper provides more than half the effort to complete the activity 1 Dependent. The helper does all the effort to complete an activity 7 Patient refused to complete or attempt activity 9 The patient did not perform the activity before the current illness or injury 88 Not attempted due to Medical conditions or safety concerns Eating (FIM): 5 Eating (QC): 5 Grooming (FIM): 3 Oral Hygiene (QC): 2 Bathing (FIM): 3 (Using shower chair with cutout and hand held shower) Bathing Location: L Arm, R Arm, L Upper Leg, R Upper Leg, Chest, Abdomen, Perineal Area Shower/Bathe Self (QC): 3 Upper Body (FIM): 2 Upper Body Dressing (QC): 2 Lower Body Dressing (FIM): 1 Lower Body Dressing (QC): 1 On/Off Footwear (QC): 1 Toileting (FIM): 1 (Pt requires assist x2 to manipulate clothing and cleanse self.) Toileting Hygiene (QC): 1 Transfers (B, C, W/C) (FIM): 1 Toilet/Commode Transfer (FIM): 1 Toilet Transfer (QC): 1 Shower Transfer(FIM): 1 Other Treatment Pt able to sit on edge of mat table with min A. Assist x2 for supine <--> EOB. Mod A to max A to sit EOB in room. OT Short Term Goals Short Term Goals Time Frame: Oct 04, 2018 Grooming(FIM): 4 Bathing(FIM): 3 Upper Body Dressing(FIM): 4 Lower Body Dressing(FIM): 3 Toileting(FIM): 3 Toilet/Commode Transfer(FIM): 3 Additional Short Term Goals: 1-Demonstrate ADL Tasks, 2-Verbalize Understanding, 3-ImproveStrength/Gilbert 1=Demonstrate adherence to instructed precautions during ADL tasks. 2=Patient will verbalize/demonstrate understanding of assistive devices/modifications for ADL. 3=Patient will improve strength/tolerance for activity to enable patient to perform ADL's. OT Senior Automation Engineer Goals Senior Automation Engineer Goals Time Frame: Oct 25, 2018 Eating (FIM): 6 Eating (QC): 6 Groomin Oral Hygiene (QC): 6 Bathing(FIM): 5 Shower/Bathe Self (QC): 5 Upper Body Dressing(FIM): 5 Upper Body Dressing (QC): 5 Lower Body Dressing(FIM): 5 Lower Body Dressing (QC): 5 On/Off Footwear (QC): 5 Toileting(FIM): 5 Toileting Hygiene (QC): 5 Toilet/Commode Transfer(FIM): 5 Toilet/Commode Transfer (QC): 5 Shower Transfer(FIM): 5 Additional Goals: 1-Demonstrate ADL Tasks, 2-Verbalize Understanding, 3- ImproveStrength/Gilbert 1=Demonstrate adherence to instructed precautions during ADL tasks. 2=Patient will verbalize/demonstrate understanding of assistive devices/modifications for ADL. 3=Patient will improve strength/tolerance for activity to enable patient to perform ADL's. OT Education/Plan Problem List/Assessment Assessment: Decreased Activ Tolerance, Decreased Safety Aware, Decreased UE Strength, Dependent Transfers, Impaired Bed Mobility, Impaired Coordination, Impaired Funct Balance, Impaired I ADL's, Impaired Self-Care Skills, Restricted Funct UE ROM Pt demonstrates decreased mobility, strength, activity tolerance, and ADL functioning. Pt to benefit from skilled OT intervention for ADL training, transfers, strengthening, and home safety education to increase level of independence and allow safe discharge home. Discharge Recommendations Plan/Recommendations: Continue POC Treatment Plan/Plan of Care Patient would benefit from OT for education, treatment and training to promote independence in ADL's, mobility, safety and/or upper extremity function for ADL's. Plan of Care: ADL Retraining, Functional Mobility, Group Exercise/Act as Ind, UE Funct Exercise/Act Treatment Duration: Oct 25, 2018 Frequency: At least 5 of 7 days/Wk (IRF) Estimated Hrs Per Day: 1.5 hours per day Agreement: Yes Rehab Potential: Good Time/GCodes Start Time: 08:35 Stop Time: 10:05 Total Time Billed (hr/min): 90 Billed Treatment Time 1 visit-ADL 6 (90 min) co-treat with PT entire session NERY ADAIR Sep 28, 2018 12:31
--- NOTE | 2018-09-28 12:52 | PM&R H&P / Post Admit Assess ---
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 Parsons who presents after a complex ICU stay which included intubation due to respiratory insufficiency due to recurrent pulmonary hemorrhage requiring airway protection and placed on treatment for hospital acquired pneumonia. Patient is not an anticoagulation candidate at this current time due to the recurrent hemorrhages. Patient is doing extremely well very weak and will require intensive rehabilitation in order to return home. Prior level of functioning was independent with ADLs and ambulation. He does have a history of inflammatory bowel disease of which he has a lot of diarrhea which is chronic. He denies any significant pain and he does have lower extremity edema we have initiated LUIS EDUARDO hose for compression therapy. His daughter from [facility] is here visiting him. I checked meds and labs. Blood pressure has been mildly elevated at 160/77 but he is not having any more dysphagia as a complication from intubation and we will discontinue Head catheter and telemetry. Source: patient, family, RN/MD, old records Exam Limitations: no limitations Date Seen 09/28/18 Time Seen by a Provider: 10:30 Attending Physician Heike Esteban Holly A MD Referring Physician Date of Admission Sep 27, 2018 at 16:25 Home Medications & Allergies Home Medications Reviewed patient Home Medication Reconciliation performed by pharmacy medication reconciliations industrial ecology technician and/or nursing. Patients Allergies have been reviewed. Allergies Allergies Coded Allergies Sulfa (Sulfonamide Antibiotics) (Verified Allergy, Unknown, 08/31/18) montelukast (Unverified Adverse Reaction, Unknown, 06/08/16) Hallucinations per pt Past Elspiof-Fafedm-Gvojvf Hx Past Med/Social Hx: Reviewed Nursing Past Med/Soc Hx, Reviewed and Corrections made Patient Social History Marrital Status: Employed/Student: retired Alcohol Use: Denies Use Recreational Drug Use: No Smoking Status: Never a Smoker Former Smoker, Quit: Dec 08, 1991 Type Used: Cigarettes 2nd Hand Smoke Exposure: No Physical Abuse Screen: No Sexual Abuse: No Recent Foreign Travel: No Contact w/other who traveled: No Recent Hopitalizations: Yes Recent Infectious Disease Expo: No Immunizations Up To Date Pediatric: Yes Date of Pneumonia Vaccine: August 05, 2018 Date of Influenza Vaccine: Jan 08, 2017 Seasonal Allergies Seasonal Allergies: Yes Past Medical History Surgeries: Cardiac, CABG, Coronary Stent, Gallbladder, Pacemaker Respiratory: COPD, Pneumonia, Sleep Apnea pulmonary hemorrhage Currently Using CPAP: No Currently Using BIPAP: Yes Cardiac: Atrial Fibrillation, Coronary Artery Disease, High Cholesterol, Hypertension Reproductive: No Sexually Transmitted Disease: No HIV/AIDS: No Genitourinary: Benign Prostatic Hyperpl Gastrointestinal: Colitis, Chronic Diarrhea, Polyps Loss of Vision: Denies Hearing Impairment: Denies Cancer: Skin, Melanoma History of Blood Disorders: No Adverse Reaction to Blood Jones: No (N/A) Family History Arthritis Cardiovascular disease Kidney disease G8 BROTHER Leukemia G8 BROTHER Multiple myeloma Prostate cancer 19 FATHER Heart Disease, Hypertension Review of Systems Constitutional: see HPI, dizziness, malaise, weakness EENTM: no symptoms reported Respiratory: cough, dyspnea on exertion Cardiovascular: no symptoms reported Gastrointestinal: diarrhea Genitourinary: no symptoms reported Musculoskeletal: back pain, joint pain Skin: no symptoms reported Psychiatric/Neurological: Anxiety, Depressed All Other Systems Reviewed Negative Unless Noted: Yes Physical Exam Exam Vital Signs Vital Signs Date Time Temp Pulse Resp B/P (MAP) Pulse Ox O2 Delivery O2 Flow Rate FiO2 09/28/18 12:00 98.6 64 18 150/77 (101) 97 Room Air Capillary Refill : General Appearance: No Apparent Distress, WD/WN, Chronically ill HEENT: PERRL/EOMI, Normal ENT Inspection, Pharynx Normal, Moist Mucous Membra jacqueline Neck: Full Range of Motion, Normal Inspection, Non Tender, Supple Respiratory: Chest Non Tender, Lungs Clear, Normal Breath Sounds, No Accessory Muscle Use, No Respiratory Distress, Decreased Breath Sounds Cardiovascular: No Edema, No Gallop, No JVD, No Murmur, Irregularly Irregular Gastrointestinal: Normal Bowel Sounds, No Organomegaly, No Pulsatile Mass, Non Tender, Soft Back: Normal Inspection, No CVA Tenderness, No Vertebral Tenderness Extremity: Normal Capillary Refill, Normal Inspection, Normal Range of Motion, Non Tender, No Calf Tenderness, No Pedal Edema Neurologic/Psychiatric: Alert, Oriented x3, No Motor/Sensory Deficits, Normal Mood/Affect, Motor Weakness (generalized all extremities 4/5) Skin: Normal Color, Warm/Dry Lymphatic: No Adenopathy Results Results/Procedures Labs Laboratory Tests 09/28/18 05:51 Patient resulted labs reviewed. 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 pulmonary hemorrhage no longer an anticoagulation candidate at this current time Status post pneumonia Chronic atrial fibrillation Hypertension Hyperlipidemia Ulcerative colitis Insomnia BPH COPD Plan: Monitor labs O2 Nebs BP management IRF therapy protocols (1) Myopathy (2) Weakness generalized (3) COPD (chronic obstructive pulmonary disease) (4) Pacemaker (5) BRIDGER treated with BiPAP (6) CAD S/P percutaneous coronary angioplasty Onset Date: 12/31/2013 (7) Asthma (8) Leukocytosis (9) Anemia (10) Hx of CABG (11) Hypoxia Post Admission Physician Asses Date seen by provider: Sep 28, 2018 Time seen by provider: 10:30 Admisison Dx: (1) Myopathy The preadmission screen agrees with the post admission assessment that the patient is a good candidate for inpatient rehabilitation. The patient will have a comprehensive program of inpatient rehabilitation with a goal of maximizing level of functional independence prior to discharge home with family. The patient will have PT/OT ninety minutes per day, each discipline, five days a week for gait, strengthening, conditioning, balance, ADLs, any patient/family/caregiver training as necessary. Speech therapy to do cognitive assessment and treat as indicated. Rehabilitation nursing to assist with bowel, bladder, skin, wound care, medication administration, pain management. Synthetic Cloth Binding Cutter to assist with discharge planning, community reentry. SCD's for DVT prophylaxis. He appears to be well motivated to participate in three hours of therapy a day. He should be able to tolerate three hours of therapy a day from a medical standpoint. He should benefit from the three hours of therapy a day. He has a reasonable discharge plan, reasonable discharge rehabilitation goals and a supportive family. He has various comorbidities that need to be closely monitored with medications and treatments adjusted on a daily basis as needed. These include: see list Barriers to discharge for this patient who had been independent prior to this are for him to be modified independent to supervision for ADLs and mobility skil ls prior to discharge home with family, so as to lessen the burden of the caregivers. Risks for this patient include: 1. Fall 2. Fracture 3. DVT 4. Pulmonary embolism 5. Wound infection 6. Skin breakdown 7. Contractures 8. Poorly controlled pain 9. Urinary retention 10. UTI 11. Respiratory infection 12. Aspiration Estimated Length of Stay: 7 days Prognosis: Rehab prognosis appears good for goal of discharge home with family modified independent to supervision for ADLs and mobility skills. HEIKE ESTEBAN DO Sep 28, 2018 12:52
--- NOTE | 2018-09-28 15:03 | Physical Therapy Evaluation ---
PT Evaluation-General Medical Diagnosis Admission Date Sep 27, 2018 at 16:25 Medical Diagnosis: pulmonary hemorrhage, pneumonia Onset Date: Sep 15, 2018 Therapy Diagnosis Therapy Diagnosis: debility Height/Weight Height (Feet): 5 Height (Inches): 6.00 Weight (Pounds): 205 Weight (Ounces): 0.0 Precautions Precautions/Isolations: Fall Prevention, Standard Precautions Weight Bear Status Right Lower Extremity: Right Full Weight Bearing Left Lower Extremity: Left Full Weight Bearing Referral Physician: Rani Reason for Referral: Evaluation/Treatment Medical History Pertinent Medical History: CABG, CAD, COPD, Heart Failure, HTN, ID Current History Pt was previously hospitalized for pneumonia and pulmonary hemorrhage. He was discharged after significant improvement and clearing of the infection. On September 18, he presented to the ER with recurrent hemorrhage and recurrent pneumonia and transferred to ICU due to worsening oxygenation. Reviewed History: Yes Social History Home: Multilevel (bedroom and bathroom are on main floow) Current Living Status: Spouse Entry Into Home: Stairs With Railing PT Steps Into Home: 1 Prior/Core FIM Prior Level of Function Therapy Code Descriptions/Definitions Functional [place] Measure: 0=Not Assessed/NA 4=Minimal Assistance 1=Total Assistance 5=Supervision or Setup 2=Maximal Assistance 6=Modified [place] 3=Moderate Assistance 7=Complete [place] Therapy Quality Codes: 6 Independent with activity with or without an assistive device 5 Patient requires set up or clean up by helper. Patient completes activity by themselves 4 Supervision or touching assist (CGA). [place] provide cues , steadying assist 3 The helper provides less than half the effort to complete the activity 2 The helper provides more than half the effort to complete the activity 1 Dependent. The helper does all the effort to complete an activity 7 Patient refused to complete or attempt activity 9 The patient did not perform the activity before the current illness or injury 88 Not attempted due to Medical conditions or safety concerns Functional Abilities and Goals: Independent: Patient completed the activities by him/herself, with or without an assistive device, with no assistance from a helper. Needed Some Help: Patient needed partial assistance from another person to c omplete activities. Dependent: A helper completed the activities for the patient. Unknown: Not Applicable: Bed Mobility: 7 Transfers (B,C,W/C) (FIM): 7 Gait: 7 Stairs: 7 Indoor Mobility (Ambulation): Independent Stairs: Independent Prior Devices Use: None Active, played golf, (+) driving PT Evaluation-Current Subjective Pt in chair, awaiting breakfast due to mix-up but agreeable to participate. Eager to participate and improve. Reports his (R) shoulder is markedly improved with ice and Voltaren gel. Objective Patient Orientation: Person, Place, Time, Situation Problem Solving: Good Attachments: Head Catheter ROM/Strength ROM Upper Extremities See OT ROM Lower Extremities Grossly WFL for functional mobility Strength Upper Extremities See OT Strenght Lower Extremities (B) DF grossly 3-/5, (B) PF grossly 2-/5, (B) knee extension and flexion: grossly 3-/5 (B) hip extension: 2/5, (B) hip flexion: 3-/5, (B) hip abduction: 3-/5 Lower abdominals: 1/5 Integumentary/Posture Integumentary See nurses' notes Bladder Incontinence: Head Cath Posture Flexed Neuromuscular (Tone, Coordination, Reflexes) Decreased tone Sensory Vision: Functional Hearing: Functional Hand Dominance: Right Transfers Therapy Code Descriptions/Definitions Functional [place] Measure: 0=Not Assessed/NA 4=Minimal Assistance 1=Total Assistance 5=Supervision or Setup 2=Maximal Assistance 6=Modified [place] 3=Moderate Assistance 7=Complete [place] Therapy Quality Codes: 6 Independent with activity with or without an assistive device 5 Patient requires set up or clean up by helper. Patient completes activity by themselves 4 Supervision or touching assist (CGA). [place] provide cues , steadying assist 3 The helper provides less than half the effort to complete the activity 2 The helper provides more than half the effort to complete the activity 1 Dependent. The helper does all the effort to complete an activity 7 Patient refused to complete or attempt activity 9 The patient did not perform the activity before the current illness or injury 88 Not attempted due to Medical conditions or safety concerns Transfers (B, C, W/C) (FIM): 1 Scootin Rollin Roll Left to Right (QC): 2 Supine to/from Sit: 1 Sit to/from Stand: 1 bed t/f WC(FIM only if WC use): 1 Sit to Lying (QC): 2 Lying to Sitting/Side of Bed(Q: 2 Sit to Stand (QC): 1 Chair/Qud-zz-Icjqv Xfer(QC): 1 Car Transfer (QC): 88 (Dependent on sit<->stand lift and poor trunk control currently) Gait Does the Patient Walk?: No and Walking Goal IS indicated Mode of Locomotion: Both Anticipated Mode of Locomotion: Walk Gait (FIM): 0 Distance (FIM): 0=does not occure Walk 10 feet (QC): 88 Walk 50 ft with 2 Turns(QC): 88 Walk 150 ft (QC): 88 Walking 10ft/uneven surface-QC: 88 Comments/Gait Description Pt currently dependent on sit<->stand lift for transfers. Wheelchair Training Does the Pt Use a Wheelchair?: Yes Wheelchair Distance (FIM): 0=does not occure WC not assessed this date due to recent flare up of (R) shoulder pain. Will assess 09/30/18 as Pt tolerance allows. Stairs Stairs (FIM): 0 1 Step (curb) (QC): 88 4 Steps (QC): 88 12 Steps (QC): 88 If not tested on admit;explain Pt currently dependent on sit<->stand lift Balance Sitting Static: Fair Sitting Dynamic: Fair Standing Static: Poor Standing Dynamic: Poor Picking up an Object (QC): 88 Treatment Eval. PT/OT co-treat due to level of assist required and decreased functional activity tolerance. Transfers performed with sit<->stand lift with skilled VCS to initiate LE hip and knee extensors while in lift. Seated EOB and EOM and in shower chair with PT addressing core strength/activation and sitting balance while OT addressed UE and dressing. Pt able to maintain (I) sitting balance with close SBA on mat table, unable to (I) maintain sitting balance at EOB this date. Pt returned to recliner with all needs met post session. Assessment/Needs Pt would benefit from skilled PT to address functional weakness and improve functional activity tolerance to increase (I) with functional mobility and decrease caregiver burden. Rehab Potential: Good PT Short Term Goals Short Term Goals Time Frame: Oct 12, 2018 Transfers (B,C,W/C) (FIM): 4 PT Halfway Goals Halfway Goals PT [employer] Goals Time Frame: Oct 26, 2018 Transfers (B,C,W/C) (FIM): 6 Sit to Lying (QC): 6 Lying-Sitting on Side/Bed(QC): 6 Sit to Stand (QC): 6 Rollin Roll Left to Right (QC): 6 Chair/Qfg-zw-Surxf Xfer(QC): 6 Car Transfer (QC): 6 Does the Patient Walk: No and Walking Goal IS indicated Gait (FIM): 6 Gait distance (FIM): 3=150 ft Distance: 150 Walk 10 feet (QC): 6 Walk 10ft-Uneven Surface(QC): 6 Walk 50ft with 2 Turns (QC): 6 Walk 150 ft (QC): 6 Gait Level of Assist: 6 Gait Assistive Device: FWW Stairs (FIM): 6 # of Steps: 12 1 Step (curb) (QC): 6 4 Steps (QC): 6 12 Steps (QC): 6 Stairs Level Of Assist: 6 Picking up an Object (QC): 5 PT goals established to allow safe return home. PT Plan Problem List Problem List: Activity Tolerance, Functional Strength, Safety, Balance, Gait, Transfer, Bed Mobility, ROM Treatment/Plan Treatment Plan: Continue Plan of Care Treatment Plan: Bed Mobility, Concurrent Therapy, Education, Functional Activity [place], Functional Strength, Group Therapy, Gait, Safety, Therapeutic Exercise, Transfers Treatment Duration: Oct 26, 2018 Frequency: At least 5 of 7 days/Wk (IRF) Estimated Hrs Per Day: 1.5 hours per day Patient and/or Family Agrees t: Yes Safety Risks/Education Patient Education: Transfer Techniques Teaching Recipient: Patient Teaching Methods: Demonstration Response to Teaching: Verbalize Understanding Time/GCodes Time In: 08 Time Out: 1005 Total Billed Treatment Time: 100 Total Billed Treatment 1, EVHIGH x 10', FA x 90' G Codes Necessary: NIECY Christian DPCaitlyn Sep 28, 2018 15:03
[2018-09-28 15:37] VITALS: BP 131/72
[2018-09-28] MEDS: TAMSULOSIN 0.4 MG (FLOMAX) CAP PO SCH (18:03)
[2018-09-28] MEDS: LOSARTAN 25 MG (COZAAR) TAB PO SCH (18:03)
[2018-09-28 20:00] VITALS: BP 144/76
[2018-09-28] MEDS: MESALAMINE 1.2 GM PO SCH (20:47)
[2018-09-28] MEDS: MELATONIN 3 MG TABLET PO PRN (20:48)
[2018-09-29] VITALS (7 sets, daily range): BP systolic 124–151; BP diastolic 70–78
[2018-09-29] MEDS: inSUlin ASPART (NovoLOG) 1 UNIT/0.01 ML (CHARGE PER UNIT) SC SCH ×4 (00:15→17:57)
[2018-09-29] MEDS: RT-ALBUTEROL/IPRATROPIUM 3 ML (DUONEB) VIAL INH SCH ×6 (02:40→23:03)
[2018-09-29] MEDS: CHLORASEPTIC LOZENGE MM SCH (05:47)
[2018-09-29] MEDS: LACTOBACILLUS ACIDOPHILUS (PROBIOTIC) CAPSULE PO SCH ×2 (05:57→17:46)
[2018-09-29] MEDS: PANTOPRAZOLE 40 MG (PROTONIX) TAB PO SCH (05:57)
[2018-09-29] MEDS: SENNA W/DOCUSATE (SENOKOT S) TABLET PO SCH ×2 (08:31→20:22)
[2018-09-29] MEDS: DILTIAZEM 300 MG (CARDIZEM CD) CAP PO SCH (09:11)
[2018-09-29] MEDS: meTOprolol TARTRATE 50 MG (LOPRESSOR) TAB PO SCH ×2 (09:11→20:21)
[2018-09-29] MEDS: LORATADINE (CLARITIN) 10 MG TAB PO SCH (09:11)
[2018-09-29] MEDS: LOPERAMIDE 2 MG (IMODIUM) TABLET PO SCH ×2 (09:11→20:20)
[2018-09-29] MEDS: methylPREDNISolone 40 MG/ML (Solu-MEDROL) VIAL IV SCH ×2 (09:11→20:20)
[2018-09-29] MEDS: DICLOFENAC 1% GEL 100 GM (VOLTAREN) TUBE TOP SCH ×4 (09:12→20:22)
[2018-09-29] MEDS ORDERED: CHLORASEPTIC LOZENGE MM PRN (10:30)
--- NOTE | 2018-09-29 11:44 | PM&R Progress Note ---
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 Parsons who presents after a complex ICU stay which included intubation due to respiratory insufficiency due to recurrent pulmonary hemorrhage requiring airway protection and placed on treatment for hospital acquired pneumonia. Patient is not an anticoagulation candidate at this current time due to the recurrent hemorrhages. Patient is doing extremely well very weak and will require intensive rehabilitation in order to return home. Prior level of functioning was independent with ADLs and ambulation. He does have a history of inflammatory bowel disease of which he has a lot of diarrhea which is chronic. He denies any significant pain and he does have lower extremity edema we have initiated LUIS EDUARDO hose for compression therapy. His daughter from [facility] is here visiting him. I checked meds and labs. Blood pressure has been mildly elevated at 160/77 but he is not having any more dysphagia as a complication from intubation and we will discontinue Head catheter and telemetry. Subjective/Events-last exam Patient doing much better at bedside Has no complaints Had fecal incontinence last night due to diarrhea from ulcerative colitis flare but is doing much better today Was able to pressures teeth brush his hair shave and do all that in the bathroom in a wheelchair Very frail and weak but improving and per dissipate eating and therapy No shortness of breath reported No cough Urinating well Denies any pain Lower extremity edema improved with LUIS EDUARDO hose Using incentive spirometer Review of Systems General: Fatigue Pulmonary: Dyspnea Objective Exam Vital Signs Vital Signs Date Time Temp Pulse Resp B/P (MAP) Pulse Ox O2 Delivery O2 Flow Rate FiO2 09/29/18 10:30 94 Room Air 09/29/18 08:00 97.8 62 18 133/70 (91) Capillary Refill : General Appearance: No Apparent Distress, WD/WN, Chronically ill HEENT: PERRL/EOMI, Normal ENT Inspection, Pharynx Normal, Moist Mucous Membranes Neck: Full Range of Motion, Normal Inspection, Non Tender, Supple Respiratory: Chest Non Tender, Lungs Clear, Normal Breath Sounds, No Accessory Muscle Use, No Respiratory Distress, Decreased Breath Sounds Cardiovascular: No Edema, No Gallop, No JVD, No Murmur, Irregularly Irregular Gastrointestinal: Normal Bowel Sounds, No Organomegaly, No Pulsatile Mass, Non Tender, Soft Back: Normal Inspection, No CVA Tenderness, No Vertebral Tenderness Extremity: Normal Capillary Refill, Normal Inspection, Normal Range of Motion, Non Tender, No Calf Tenderness, No Pedal Edema Neurologic/Psychiatric: Alert, Oriented x3, No Motor/Sensory Deficits, Normal Mood/Affect, Motor Weakness (generalized all extremities 4/5) Skin: Normal Color, Warm/Dry Lymphatic: No Adenopathy Results/Procedures Lab Patient resulted labs reviewed. FIM Transfers Therapy Code Descriptions/Definitions Functional [place] Measure: 0=Not Assessed/NA 4=Minimal Assistance 1=Total Assistance 5=Supervision or Setup 2=Maximal Assistance 6=Modified [place] 3=Moderate Assistance 7=Complete [place] Therapy Quality Codes: 6 Independent with activity with or without an assistive device 5 Patient requires set up or clean up by helper. Patient completes activity by themselves 4 Supervision or touching assist (CGA). [place] provide cues , steadying assist 3 The helper provides less than half the effort to complete the activity 2 The helper provides more than half the effort to complete the activity 1 Dependent. The helper does all the effort to complete an activity 7 Patient refused to complete or attempt activity 9 The patient did not perform the activity before the current illness or i njury 88 Not attempted due to Medical conditions or safety concerns Transfers (B, C, W/C) (FIM): 1 Scootin Rollin Roll Left to Right (QC): 2 Supine to/from Sit: 1 Sit to/from Stand: 1 Sit to Lying (QC): 2 Sit to Stand (QC): 1 Chair/Juc-ve-Tttjc Xfer(QC): 1 Bed to/from Chair: 1 Car Transfer (QC): 88 (Dependent on sit<->stand lift and poor trunk control currently) Gait Training Does the Patient Walk?: No and Walking Goal IS indicated Gait (FIM): 0 Distance (FIM): 0=does not occure Walk 10 feet (QC): 88 Walk 50 ft with 2 Turns(QC): 88 Walk 150 ft (QC): 88 Walking 10ft/uneven surface-QC: 88 Wheelchair Training Does the Pt Use a Wheelchair?: Yes Wheelchair Distance: 0=does not occure Stair Training Stairs (FIM): 0 1 Step (curb) (QC): 88 4 Steps (QC): 88 12 Steps (QC): 88 Balance Picking up an Object (QC): 88 ADL-Treatment Feedin Eating (QC): 5 Groomin Oral Hygiene (QC): 2 Bathin (Using shower chair with cutout and hand held shower) Bathing Location: L Arm, R Arm, L Upper Leg, R Upper Leg, Chest, Abdomen, Perineal Area Shower/Bathe Self (QC): 3 Upper Extremity Dressin Upper Body Dressing (QC): 2 Lower Extremity Dressin Lower Body Dressing (QC): 1 On/Off Footwear (QC): 1 Toiletin (Pt requires assist x2 to manipulate clothing and cleanse self.) Toileting Hygiene (QC): 1 Toilet/Commode Transfer: 1 Toilet Transfer (QC): 1 Shower: 1 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 pulmonary hemorrhage no longer an anticoagulation candidate at this current time Status post pneumonia Chronic atrial fibrillation Hypertension Hyperlipidemia Ulcerative colitis Insomnia BPH COPD Plan: Monitor labs by checking tomorrow O2 Nebs BP management IRF therapy protocols (1) Myopathy (2) BRIDGER treated with BiPAP (3) CAD S/P percutaneous coronary angioplasty Onset Date: 12/31/2013 (4) Pacemaker (5) Asthma (6) Hx of CABG (7) Leukocytosis (8) Weakness generalized (9) Anemia (10) COPD (chronic obstructive pulmonary disease) (11) Hypoxemia (12) Edema (13) Ulcerative colitis (14) Fecal incontinence (15) Contraindication to anticoagulation therapy (16) Pulmonary hemorrhage KOBI ESTEBAN DO Sep 29, 2018 11:44
[2018-09-29] MEDS: TAMSULOSIN 0.4 MG (FLOMAX) CAP PO SCH (17:47)
[2018-09-29] MEDS: LOSARTAN 25 MG (COZAAR) TAB PO SCH (17:47)
[2018-09-29] MEDS: MESALAMINE 1.2 GM PO SCH (20:21)
[2018-09-29] MEDS: MELATONIN 3 MG TABLET PO PRN (20:21)
[2018-09-30] VITALS (7 sets, daily range): BP systolic 133–168; BP diastolic 73–90
[2018-09-30] MEDS: inSUlin ASPART (NovoLOG) 1 UNIT/0.01 ML (CHARGE PER UNIT) SC SCH ×4 (00:18→18:50)
[2018-09-30] MEDS: RT-ALBUTEROL/IPRATROPIUM 3 ML (DUONEB) VIAL INH SCH ×4 (02:14→20:52)
[2018-09-30] MEDS: LACTOBACILLUS ACIDOPHILUS (PROBIOTIC) CAPSULE PO SCH ×2 (06:14→17:46)
[2018-09-30] MEDS: PANTOPRAZOLE 40 MG (PROTONIX) TAB PO SCH (06:14)
[2018-09-30 06:34] LABS: BASOPHILS # (AUTO) 0.1 10^3/uL (0.0-0.1); BASOPHILS % (AUTO) 1 % (0-10); EOSINOPHILS % (AUTO) 0 % (0-10); HEMATOCRIT 36 % (40-54); HEMOGLOBIN 12.1 G/DL (13.3-17.7); LYMPHOCYTES # (AUTO) 1.3 X 10^3 (1.0-4.0); LYMPHOCYTES % (AUTO) 7 % (12-44); MEAN CORPUSCULAR HEMOGLOBIN 31 PG (25-34); MEAN CORPUSCULAR HGB CONC 34 G/DL (32-36); MEAN CORPUSCULAR VOLUME 91 FL (80-99); MEAN PLATELET VOLUME 10.2 FL (7.4-10.4); MONOCYTES # (AUTO) 1.3 X 10^3 (0.0-1.0); MONOCYTES % (AUTO) 7 % (0-12); NEUTROPHILS # (AUTO) 16.1 X 10^3 (1.8-7.8); NEUTROPHILS % (AUTO) 86 % (42-75); PLATELET COUNT 212 10^3/uL (130-400); RED CELL DISTRIBUTION WIDTH 14.9 % (10.0-14.5); WHITE BLOOD COUNT 18.8 10^3/uL (4.3-11.0)
[2018-09-30 06:53] LABS: ALANINE AMINOTRANSFERASE 57 U/L (0-55); ALBUMIN 3.3 GM/DL (3.2-4.5); ALKALINE PHOSPHATASE 74 U/L (40-136); BILIRUBIN,TOTAL 0.9 MG/DL (0.1-1.0); BUN/CREATININE RATIO 30; CALCIUM 8.7 MG/DL (8.5-10.1); CARBON DIOXIDE 26 MMOL/L (21-32); CHLORIDE 103 MMOL/L (98-107); CREATININE SERUM 0.74 MG/DL (0.60-1.30); GFR ESTIMATED > 60; GLUCOSE 159 MG/DL (70-105); POTASSIUM 4.2 MMOL/L (3.6-5.0); SODIUM 139 MMOL/L (135-145); TOTAL PROTEIN 5.6 GM/DL (6.4-8.2)
[2018-09-30 07:19] LABS: BAND NEUTROPHILS 9 %; LYMPHOCYTES % (MANUAL) 10 %; METAMYELOCYTES % 8 %; MONOCYTES % (MANUAL) 3 %; NEUTROPHILS % (MANUAL) 70 %; POLYCHROMASIA SLIGHT; SPHEROCYTES SLIGHT
[2018-09-30] MEDS ORDERED: DIGO250T PO (08:35)
[2018-09-30] MEDS ORDERED: LOSA25TA41 PO (08:35)
[2018-09-30] MEDS ORDERED: APIX5TAB PO (08:35)
--- NOTE | 2018-09-30 08:36 | NUR ---
REVIEWED MED REC IT WAS REPORTED UPON ADMISSION TO ICU. THE FOLLOWING CHANGES WERE MADE WHEN THE PATIENT DISCHARGED TO REHAB THAT ARE NOT CURRENTLY REFLECTED ON THE MED REC. START TAKING: VOLTAREN GEL TOP QID STOP TAKING: ELIQUIS 5MG BID DIGOXIN 250MCG DAILY @ 7PM LOSARTAN 25MG DAILY @ 6PM I REMOVED THE NEW ORDER FOR VOLTAREN AND ADDED BACK THE THREE MEDICATIONS THAT WERE STOPPED AT THIS TIME FRO PROPER DISCHARGE TO HOME ORDERS.
--- NOTE | 2018-09-30 08:37 | Consultation ---
History of Present Illness History of Present Illness Patient Consulted On(domingo/time) 09/30/18 08:37 Date Seen by Provider: Sep 30, 2018 Time Seen by Provider: 08:30 Reason for Visit: NEEDS THERAPY FOR STRENGTHENING History of Present Illness PT REPORTS THAT HE IS STILL EXTREMELY FATIGUED AND HE IS SHORT OF BREATH. HE STATES THAT HIS SYMPTOMS ARE ONLY SLIGHTLY IMPROVED FROM LAST SUNDAY. HE STATES THAT HE HAS HAD SOME ISSUES WITH HIS BOWELS BUT THINKS LAURE THIS MEDICATIONS HAVE IMPROVED HIS SYMPTOMS. Allergies and Home Medications Allergies Coded Allergies: Sulfa (Sulfonamide Antibiotics) (Verified Allergy, Unknown, 08/31/18) montelukast (Unverified Adverse Reaction, Unknown, 06/08/16) Hallucinations per pt Home Medications Apixaban 5 Mg Tablet, 5 MG PO BID, (Reported) Cholecalciferol (Vitamin D3) 5,000 Unit Capsule, 5,000 UNIT PO DAILY, (Reported) Digoxin 250 Mcg Tablet, 250 MCG PO 1700, (Reported) Diltiazem HCl 180 Mg Cap.er.24h, 360 MG PO DAILY, (Reported) TAKES 2 (180MG) CAPSULES Fluticasone Propionate 16 Gm [place].susp, 1 SPRAY NS BID PRN for ALLERGIES, (Reported) Furosemide 40 Mg Tablet, 40 MG PO DAILY, (Reported) Gluc HCl/Csa/Chato Hy/Hyalur AC 1 Each Capsule, 1 CAP PO 1800, (Reported) Lactobacillus Combination No.4 1 Each Capsule, 1 CAP PO BID, (Reported) Loperamide HCl 2 Mg Tablet, 1 MG PO BID, (Reported) TAKES 1/2 (2MG) TABLET Loratadine 10 Mg Tablet, 10 MG PO DAILY, (Reported) Losartan Potassium 25 Mg Tablet, 25 MG PO 1800, (Reported) Magnesium 250 Mg Tablet, 250 MG PO DAILY, (Reported) Melatonin 10 Mg Tablet, 10 MG PO HS, (Reported) Mesalamine 1.2 Gm Tablet.dr, 2.4 GM PO HS, (Reported) TAKES 2 (1.2GM) TABLETS Metoprolol Tartrate 100 Mg Tablet, 100 MG PO BID, (Reported) Multivit-Min/FA/Lycopene/Lut 1 Each Tablet, 1 TAB PO HS, (Reported) Potassium Chloride 20 Meq Tab.er.prt, 20 MEQ PO DAILY, (Reported) Rosuvastatin Calcium 5 Mg Tablet, 2.5 MG PO 1800, (Reported) TAKES 1/2 (5MG) TABLET Tamsulosin HCl 0.4 Mg Cap, 0.4 MG PO 1800, (Reported) Triamcinolone Acet 15 Gm Cr, TOP BID PRN for SORES, (Reported) Patient Home Medication List Home Medication List Reviewed: Yes Past Gvsfioy-Ikrazz-Cnczmx Hx Past Med/Social Hx: Reviewed Nursing Past Med/Soc Hx, Reviewed and Corrections made Patient Social History Alcohol Use: Denies Use Recreational Drug Use: No Smoking Status: Never a Smoker Type Used: Cigarettes Former Smoker, Quit: Dec 08, 1991 2nd Hand Smoke Exposure: No Recent Foreign Travel: No Contact w/Someone Who Travel: No Recent Infectious Disease Expo: No Recent Hopitalizations: Yes Immunizations Up To Date PED Vaccines UTD: Yes Date of Pneumonia Vaccine: August 05, 2018 Date of Influenza Vaccine: Jan 08, 2017 Seasonal Allergies Seasonal Allergies: Yes Past Medical History Surgeries: Yes (5 VESSEL CABG, PACEMAKER X2, STENTS X2, skin ca removal) Cardiac, CABG, Coronary Stent, Gallbladder, Pacemaker Respiratory: Yes (BI-PAP) Pneumonia, Sleep Apnea, COPD Currently Using CPAP: No Currently Using BIPAP: Yes Cardiac: Yes (PACER, STENTS, BYPASS) Atrial Fibrillation, Coronary Artery Disease, High Cholesterol, Hypertension Neurological: No Reproductive Disorders: No Sexually Transmitted Disease: No HIV/AIDS: No Genitourinary: Yes Benign Prostatic Hyperpl Gastrointestinal: Yes (ULCERATIVE COLITIS) Colitis, Chronic Diarrhea, Polyps Musculoskeletal: Yes Endocrine: Yes (steroid induced diabetic) HEENT: No Loss of Vision: Denies Hearing Impairment: Denies Cancer: Yes (SKIN CANCER) Skin, Melanoma Psychosocial: No Integumentary: Yes (melanoma) Blood Disorders: No Adverse Reaction/Blood Tranf: No (N/A) Family Medical History Reviewed Nursing Family Hx Arthritis Cardiovascular disease Kidney disease G8 BROTHER Leukemia G8 BROTHER Multiple myeloma Prostate cancer 19 FATHER Heart Disease, Hypertension Review of Systems-General Constitutional: No chills, No fever; malaise, weakness EENTM: No hoarseness, No mouth pain, No throat swelling Respiratory: cough, dyspnea on exertion, short of breath Cardiovascular: No chest pain; Hx of Intervention, palpitations Gastrointestinal: No abdominal pain, No constipation, No diarrhea Genitourinary: frequency Musculoskeletal: back pain, joint pain, muscle weakness Skin: no symptoms reported Psychiatric/Neurological: Denies Anxiety, Denies Depressed All Other Systems Reviewed Negative Unless Noted: Yes Physical Exam-General Problems Physical Exam Vital Signs Vital Signs - First Documented 09/29/18 23:03 FiO2 21 Capillary Refill : General Appearance: WD/WN, no apparent distress Eyes: Bilateral Eye Normal Inspection, Bilateral Eye PERRL, Bilateral Eye EOMI HEENT: PERRL/EOMI, pharynx normal Neck: non-tender, supple, normal inspection Respiratory: chest non-tender, lungs clear, normal breath sounds Cardiovascular: regular rate, rhythm Gastrointestinal: normal bowel sounds, non tender, soft, no organomegaly, no pulsatile mass Rectal: deferred Back: normal inspection Extremities: non-tender, normal inspection, other (3+ PITTING TO KNEES) Neurologic/Psychiatric: retort load expediter II-XII nml as tested, no motor/sensory deficits, alert, normal mood/affect, oriented x 3 Skin: normal color, warm/dry Lymphatic: no adenopathy Assessment/Plan Assessment/Plan Admission Diagnosis/Plan PULMONARY HEMORRHAGE PNEUMONIA ATRIAL FIBRILLATION HYPERTENSION HYPERLIPIDEMIA ULCERATIVE COLITIS GENERALIZED WEAKNESS INSOMNIA CHRONIC ANTICOAGULATION USE BPH CRITICAL CARE MYOPATHY EMPHYSEMA PULMONARY HEMORRHAGE WITH PNEUMONIA - DISCUSSED WITH THE PATIENT AND HIS - WE ARE AT THE POINT THAT WE CANNOT CONTINUE TO KEEP HIM ON ELIQUIS - DR. JUNIOR IS IN AGREEMENT WITH THIS AND HE HAS RECOMMENDED AT LEAST A MONTH OFF OF THE ASPIRIN. PT IS STATUS POST INTUBATION AND EXTUBATION OVER THE WEEKEND AND EARLY THIS WEEK. HE HAS A SORE THROAT AND IS UNABLE TO DRINK OR EAT VERY MUCH. - IMPROVED AFTER STARTING ON CEPACOL LOZENGES YESTERDAY. ATRIAL FIBRILLATION - STATED ABOVE - HOLD ASPIRIN AND ELIQUIS - DEFER OTHER TREATMENT TO DR. 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 HYPERTENSION - CONTINUE WITH METOPROLOL ORALLY HYPERLIPIDEMIA - STABLE - HOLD STATIN FOR NOW DUE TO HIS CRITICAL ILLNESS MYOPATHY ULCERATIVE COLITIS - RESTARTED LIALDA ON 09/26/18 - IT WAS HELD FOR SEVERAL DAYS - CDIFF WAS NEGATIVE. GENERALIZED WEAKNESS - START THERAPY - WILL AGAIN TRY TO GET HIM ADMITTED TO I NPT REHAB UNIT - HIS INSURANCE AGAIN DENIED THE ADMISSION, I WILL MAKE A PEER TO PEER PHONE CALL TODAY - I AM CURRENTLY WAITING - AND HAVE BEEN WAITING FOR SEVERAL HOURS ON A PHONE CALL FROM HIS INSURANCE COMPANY FOR THIS PHONE CALL. DUE TO HIS PROLONGED HOSPITALIZATION AND INTUBATION, HE HAS DEVELOPED CRITICAL CARE MYOPATHY AND HE IS QUITE WEAK COMPARED TO PRIOR TO THE INTUBATION PROCESS AND COMPARED TO HIS LAST HOSPITALIZATION. RIGHT SHOULDER/AC JOINT PAIN - AFTER AN INCIDENT WHEN HE WAS BEING HELPED WITH A SIT TO STAND LIFT, HIS ARMS WERE PULLED AND HE NOW HAS RIGHT SHOULDER PAIN - RX FOR VOLTAREN GEL WRITTEN FOR THE PATIENT. EMPHYSEMA - DX ON HIS CT SCAN - HE WILL NEED CONTINUED TREATMENT OF HIS ILLNESS WITH DR. HESS AN OUTPATIENT. INSOMNIA - RESTARTED HIS HOME MELATONIN DOSING. CHRONIC ANTICOAGULATION USE - STOPPED. BPH - RESTARTED TAMSULOSIN. CONTINUE WITH INPT REHAB Admission Status: Inpatient Order (span 2 midnights) Reason for Inpatient Admission: INPT REHAB Clinical Quality Measures DVT/VTE Risk/Contraindication: Risk Factor Score Per Nursin RFS Level Per Nursing on Admit: 4+=Very High CODEY BARILLAS MD Sep 30, 2018 08:37
--- NOTE | 2018-09-30 08:56 | Physical Therapy Daily Note ---
PT Daily Note-Current Subjective Patient in recliner pre tx, agrees to PT, has no complaints of pain. Appearance Patient in wheelchair at bedside post tx with nurse call, phone, tray, all needs met. Mental Status Patient Orientation: Person, Place, Situation Transfers Therapy Code Descriptions/Definitions Functional [place] Measure: 0=Not Assessed/NA 4=Minimal Assistance 1=Total Assistance 5=Supervision or Setup 2=Maximal Assistance 6=Modified [place] 3=Moderate Assistance 7=Complete [place] Therapy Quality Codes: 6 Independent with activity with or without an assistive device 5 Patient requires set up or clean up by helper. Patient completes activity by themselves 4 Supervision or touching assist (CGA). [place] provide cues , steadying assist 3 The helper provides less than half the effort to complete the activity 2 The helper provides more than half the effort to complete the activity 1 Dependent. The helper does all the effort to complete an activity 7 Patient refused to complete or attempt activity 9 The patient did not perform the activity before the current illness or injury 88 Not attempted due to Medical conditions or safety concerns Transfers (B, C, W/C) (FIM): 2 Rollin Supine to/from Sit: 3 Sit to/from Stand: 2 Bed to/from Chair: 2 Patient needs assist with both legs sit to supine, max assist to stand. He stood in the parallel bars x3 with max assist for about 30 seconds each time. Patient used a sliding board for one transfer and he was able to perform it with min assist and cues for positioning. Weight Bearing Right Lower Extremity: Right Full Weight Bearing Left Lower Extremity: Left Full Weight Bearing Wheelchair Training Does the Pt Use a Wheelchair?: Yes Wheelchair (FIM): 4 Distance: 150'x2 Wheelchair Level of Assist: 4 Wheel 50 ft with 2 turns (QC): 3 Wheel 150 ft (QC): 3 Type of Wheelchair: Manual Patient needs min assist to help around obstacles and doorways. Exercises Supine Ex: Bridging, Quad Set, Glut sets, Heel Slides, Short Arc Quads, Hip abd/add Supine Reps: 20 Seated Therapy Exercises: Ankle pumps, Hip flexion Seated Reps: 20 LAQ alternating for 5 min Treatments bed mobility and transfers, standing, LE exercise, wheelchair mobility Assessment Current Status: Fair Progress poor trunk strength PT Short Term Goals Short Term Goals Time Frame: Oct 12, 2018 Transfers (B,C,W/C) (FIM): 4 PT Film Reproducer Goals Group Home Goals PT Film Reproducer Goals Time Frame: Oct 26, 2018 Transfers (B,C,W/C) (FIM): 6 Sit to Lying (QC): 6 Lying-Sitting on Side/Bed(QC): 6 Sit to Stand (QC): 6 Rollin Roll Left to Right (QC): 6 Chair/Aup-ui-Pqnbd Xfer(QC): 6 Car Transfer (QC): 6 Does the Patient Walk: No and Walking Goal IS indicated Gait (FIM): 6 Gait distance (FIM): 3=150 ft Distance: 150 Walk 10 feet (QC): 6 Walk 10ft-Uneven Surface(QC): 6 Walk 50ft with 2 Turns (QC): 6 Walk 150 ft (QC): 6 Gait Level of Assist: 6 Gait Assistive Device: FWW Stairs (FIM): 6 # of Steps: 12 1 Step (curb) (QC): 6 4 Steps (QC): 6 12 Steps (QC): 6 Stairs Level Of Assist: 6 Picking up an Object (QC): 5 PT Plan Problem List Problem List: Activity Tolerance, Functional Strength, Safety, Balance, Gait, Transfer, Bed Mobility, ROM Treatment/Plan Treatment Plan: Continue Plan of Care Treatment Plan: Bed Mobility, Concurrent Therapy, Education, Functional Activity [place], Functional Strength, Group Therapy, Gait, Safety, Therapeutic Exercise, Transfers Treatment Duration: Oct 26, 2018 Frequency: At least 5 of 7 days/Wk (IRF) Estimated Hrs Per Day: 1.5 hours per day Patient and/or Family Agrees t: Yes Safety Risks/Education Patient Education: Transfer Techniques, Correct Positioning, W/C Management, Safety Issues Teaching Recipient: Patient Teaching Methods: Demonstration, Discussion Response to Teaching: Reinforcement Needed Time/GCodes Time In: 0800 Time Out: 0900 Total Billed Treatment Time: 60 Total Billed Treatment 1 visit EX 30' [facility] 15' FA 15' MARIA ELENA ESQUIVEL PT Sep 30, 2018 08:56
--- NOTE | 2018-09-30 09:03 | PM&R Progress Note ---
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 Parsons who presents after a complex ICU stay which included intubation due to respiratory insufficiency due to recurrent pulmonary hemorrhage requiring airway protection and placed on treatment for hospital acquired pneumonia. Patient is not an anticoagulation candidate at this current time due to the recurrent hemorrhages. Patient is doing extremely well very weak and will require intensive rehabilitation in order to return home. Prior level of functioning was independent with ADLs and ambulation. He does have a history of inflammatory bowel disease of which he has a lot of diarrhea which is chronic. He denies any significant pain and he does have lower extremity edema we have initiated LUIS EDUARDO hose for compression therapy. His daughter from [facility] is here visiting him. I checked meds and labs. Blood pressure has been mildly elevated at 160/77 but he is not having any more dysphagia as a complication from intubation and we will discontinue Head catheter and telemetry. Subjective/Events-last exam Pt still has a trace amount of edema but compression hose are really helping Crackles in lungs are very sporadic Woke up at 3:00 o'clock this morning likely due to steroids so we'll discontinue the IV steroids and switch to Prednisone 20 mg daily for two days then discontinue it Taking whole pills no longer any dysphagia White count is 18.8 likely due to steroid effects since he is not running a fever Conferred with RN Reviewed therapy notes Checked meds and labs Melatonin 10mg will be restarted that he takes at home Review of Systems General: Fatigue Pulmonary: Dyspnea Cardiovascular: Edema Objective Exam Vital Signs Vital Signs Date Time Temp Pulse Resp B/P (MAP) Pulse Ox O2 Delivery O2 Flow Rate FiO2 09/30/18 15:45 97.6 60 14 133/73 (93) 95 Room Air 09/30/18 02:14 21 Capillary Refill : General Appearance: No Apparent Distress, WD/WN, Chronically ill HEENT: PERRL/EOMI, Normal ENT Inspection, Pharynx Normal, Moist Mucous Membranes Neck: Full Range of Motion, Normal Inspection, Non Tender, Supple Respiratory: Chest Non Tender, Lungs Clear, Normal Breath Sounds, No Accessory Muscle Use, No Respiratory Distress, Decreased Breath Sounds Cardiovascular: No Edema, No Gallop, No JVD, No Murmur, Irregularly Irregular Gastrointestinal: Normal Bowel Sounds, No Organomegaly, No Pulsatile Mass, Non Tender, Soft Back: Normal Inspection, No CVA Tenderness, No Vertebral Tenderness Extremity: Normal Capillary Refill, Normal Inspection, Normal Range of Motion, Non Tender, No Calf Tenderness, No Pedal Edema Neurologic/Psychiatric: Alert, Oriented x3, No Motor/Sensory Deficits, Normal Mood/Affect, Motor Weakness (generalized all extremities 4/5) Skin: Normal Color, Warm/Dry Lymphatic: No Adenopathy Results/Procedures Lab Laboratory Tests 09/30/18 06:22 Patient resulted labs reviewed. FIM Transfers Therapy Code Descriptions/Definitions Functional [place] Measure: 0=Not Assessed/NA 4=Minimal Assistance 1=Total Assistance 5=Supervision or Setup 2=Maximal Assistance 6=Modified [place] 3=Moderate Assistance 7=Complete [place] Therapy Quality Codes: 6 Independent with activity with or without an assistive device 5 Patient requires set up or clean up by helper. Patient completes activity by themselves 4 Supervision or touching assist (CGA). [place] provide cues , steadying assist 3 The helper provides less than half the effort to complete the activity 2 The helper provides more than half the effort to complete the activity 1 Dependent. The helper does all the effort to complete an activity 7 Patient refused to complete or attempt activity 9 The patient did not perform the activity before the current illness or injury 88 Not attempted due to Medical conditions or safety concerns Transfers (B, C, W/C) (FIM): 2 Scootin Rollin Roll Left to Right (QC): 2 Supine to/from Sit: 3 Sit to/from Stand: 2 Sit to Lying (QC): 2 Sit to Stand (QC): 1 Chair/Ljl-ak-Nupfc Xfer(QC): 1 Bed to/from Chair: 2 Car Transfer (QC): 88 (Dependent on sit<->stand lift and poor trunk control currently) Gait Training Does the Patient Walk?: No and Walking Goal IS indicated Gait (FIM): 0 Distance (FIM): 0=does not occure Walk 10 feet (QC): 88 Walk 50 ft with 2 Turns(QC): 88 Walk 150 ft (QC): 88 Walking 10ft/uneven surface-QC: 88 Wheelchair Training Does the Pt Use a Wheelchair?: Yes Wheelchair (FIM): 4 Wheelchair Distance: 0=does not occure Distance: 150'x2 Wheelchair Level of Assist: 4 Wheel 50 ft with 2 turns (QC): 3 Wheel 150 ft (QC): 3 Type of Wheelchair: Manual Stair Training Stairs (FIM): 0 1 Step (curb) (QC): 88 4 Steps (QC): 88 12 Steps (QC): 88 Balance Picking up an Object (QC): 88 ADL-Treatment Feedin Eating (QC): 5 Groomin Oral Hygiene (QC): 2 Bathin (Using shower chair with cutout and hand held shower) Bathing Location: L Arm, R Arm, L Upper Leg, R Upper Leg, Chest, Abdomen, Perineal Area Shower/Bathe Self (QC): 3 Upper Extremity Dressin Upper Body Dressing (QC): 2 Lower Extremity Dressin Lower Body Dressing (QC): 1 On/Off Footwear (QC): 1 Toiletin (Pt requires assist x2 to manipulate clothing and cleanse self.) Toileting Hygiene (QC): 1 Toilet/Commode Transfer: 1 Toilet Transfer (QC): 1 Shower: 1 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 pulmonary hemorrhage no longer an anticoagulation candidate at this current time Status post pneumonia Chronic atrial fibrillation Hypertension Hyperlipidemia Ulcerative colitis Insomnia BPH COPD Leukocytosis Insomnia Plan: Monitor labs Wean steroids O2 Nebs BP management IRF therapy protocols Melatonin 10mg at night (1) Myopathy (2) BRIDGER treated with BiPAP (3) CAD S/P percutaneous coronary angioplasty Onset Date: 12/31/2013 (4) Pacemaker (5) Asthma (6) Hx of CABG (7) Leukocytosis (8) Weakness generalized (9) Anemia (10) COPD (chronic obstructive pulmonary disease) (11) Hypoxemia (12) Edema (13) Ulcerative colitis (14) Fecal incontinence (15) Contraindication to anticoagulation therapy (16) Pulmonary hemorrhage (17) Acute insomnia (18) Leukocytosis KOBI ESTEBAN DO Sep 30, 2018 09:03
--- NOTE | 2018-09-30 09:42 | NUR ---
PATIENT ACCOUNTING REPRESENTATIVE met with patient to complete initial assessment. Patient was alert and oriented and agreeable to assessment. Patient admitted to ARU from internally with debility secondary to prolonged hospitalization and bilateral pneumonia. Prior to hospitalization patient and resided in a multilevel home in [place], [place]; however, the utilize the main for. The home has one step at the entrance without railing. Patient has had extensive hospitalization at [facility] beginning on August 31. Throughout this time, patient was originally referred to ARU; however, insurance provider denied admission. Patient was then transferred to [facility] unit and eventually discharged home. Patient then readmitted to the hospital and now presents to ARU for further strengthening. Prior to initial hospitalization patient was completely independent, required no assistive device, was very active in the community and engaged in several hobbies. Patient does however possess a bedside commode, shower seat and front-wheel walker. Primary contact identified as Roman at [phone]. Secondary contacts listed as son, Vishnu and daughter Sydney; however, patient is unsure of contact information at this time. PCP identified as Dr. Parsons, squeak rattle and leak repairer as Dr. Avila and hotel breakfast attendant as Dr. Mijares. Insurance verified as Medicare Advantage [facility] with [employer] prescription coverage. Patient utilizes mail in order, as well as [facility] for local pharmacy needs. PATIENT ACCOUNTING REPRESENTATIVE reviewed typical ARU length of stay and weekly team conferences. PATIENT ACCOUNTING REPRESENTATIVE also reviewed required insurance updates due on . Patient inquires about day pass on September, this was discussed and approved by Dr. Saravia. Patient's expresses no further concerns or questions at this time. PATIENT ACCOUNTING REPRESENTATIVE will continue to follow.
[2018-09-30] MEDS: LOPERAMIDE 2 MG (IMODIUM) TABLET PO SCH ×2 (09:46→21:54)
[2018-09-30] MEDS: DILTIAZEM 300 MG (CARDIZEM CD) CAP PO SCH (09:46)
[2018-09-30] MEDS: meTOprolol TARTRATE 50 MG (LOPRESSOR) TAB PO SCH ×2 (09:46→21:53)
[2018-09-30] MEDS: LORATADINE (CLARITIN) 10 MG TAB PO SCH (09:46)
[2018-09-30] MEDS: methylPREDNISolone 40 MG/ML (Solu-MEDROL) VIAL IV SCH (09:47)
[2018-09-30] MEDS: SENNA W/DOCUSATE (SENOKOT S) TABLET PO SCH ×2 (09:47→21:00)
[2018-09-30] MEDS: DICLOFENAC 1% GEL 100 GM (VOLTAREN) TUBE TOP SCH ×4 (10:35→21:00)
--- NOTE | 2018-09-30 10:50 | ST Cognitive Linguistic Eval ---
Speech Evaluation-General Medical Diagnosis pulmonary hemorrhage, pneumonia Onset Date: Sep 15, 2018 Therapy Diagnosis Therapy Diagnosis: Cognitive-communication Precautions Precautions/Isolations: Fall Prevention, Standard Precautions Referral Referring Physician: Dr. Saravia Medical History Pertinent Medical History: CABG, CAD, COPD, Heart Failure, HTN, GA Reviewed History: Yes Social History Current Living Status: Spouse Speech PLF-Current Status Prior Level of Function The patient lived at home with his and was independent with his daily needs. Subjective The patient was pleasant and cooperative with the cognitive evaluation. Language Eval: Auditory Comprehends Simple Yes/No Ques: Functional Indent/Objects Multiple [place]: Functional Ident/Pics in Multiple Jaimes: Functional Follows 1-Step Commands: Functional Follows Complex Directions: Functional Follows General Conversations: Functional Language Eval: Verbal Language Completes Spontaneous Greeting: Functional Produces Auto, Serial Info: Functional Imitates Simple Words/Phrases: Functional Word Finding: Functional Requests Basic Needs: Functional States Basic Personal Info: Functional Expresses Complex Ideas: Functional Objective Cognitive Domain Attention: WNL Memory: WNL Problem Solving: Functional Executive Functions: WNL Visuospatial Skills: WNL Composite Severity Rating: WNL Clock Drawing Severity Rating: WNL Objective Formal/Standardized Tests [facility] Mental Status ([facility]) Results The patient scored 27/30 which places him in the normal range. Oral Motor/Speech Production Within Functional Limits Impression The patient is a pleasant 78 year old male who was admitted to the ARU s/p respiratory issues. The patient was evaluated with the [facility] which resulted in a score of 27/30. This score is within the normal range. The patient does not require skilled ST services at this time. Communication/Social Cognition Comprehension: 7 Expression: 7 Social Interaction: 7 Problem Solvin Memory: 7 Speech Patient Assess Memory/Recall Ability: Current season, Location of own room, Staff names and faces, That he or she is in a hsp/hsp unit Speech-Plan Patient/Family Goals Patient/Family Goals: The patient plans on returning home post rehab. Treatment Plan Speech Therapy Treatment Plan: Discontinue ST The patient does not meet criteria for skilled ST at this time. Treatment Duration: Sep 30, 2018 Frequency: 1 time per week Estimated Hrs Per Day: .25 hour per day Rehab Potential: Good Barriers to Learning: None identified Pt/Family Agrees to Plan: Yes Safety Risks/Education Teaching Recipient: Patient Teaching Methods: Discussion Response to Teaching: Verbalize Understanding Education Topics Provided: Safety within his room. Time Speech Therapy Time In: 09:00 Speech Therapy Time Out: 09:15 Total Billed Time: 15 Billed Treatment Time 1, ARI Haley Sep 30, 2018 10:50
--- NOTE | 2018-09-30 11:32 | NUR ---
CHANGE METHYLPREDNISONE TO PREDNISONE 20MG X 2 DAYS
--- NOTE | 2018-09-30 13:23 | NUR ---
Follow up support provided to the pt and his . The pt continues to demonstrate strong, loving relationships in his family and expresses appreciation for staff. He shared that he spent time in prayer for his family this morning. Tearfully he added, "it was good."
--- NOTE | 2018-09-30 14:51 | Occupational Ther Daily Note ---
OT Current Status-Daily Note Subjective No pain reported. Appearance Pt. in bed. Agrees to work with OT. Mental Status/Objective Patient Orientation: Person, Place Therapy Code Descriptions/Definitions Functional [place] Measure: 0=Not Assessed/NA 4=Minimal Assistance 1=Total Assistance 5=Supervision or Setup 2=Maximal Assistance 6=Modified [place] 3=Moderate Assistance 7=Complete [place] ADL-Treatment Therapy Code Descriptions/Definitions Functional [place] Measure: 0=Not Assessed/NA 4=Minimal Assistance 1=Total Assistance 5=Supervision or Setup 2=Maximal Assistance 6=Modified [place] 3=Moderate Assistance 7=Complete [place] Therapy Quality Codes: 6 Independent with activity with or without an assistive device 5 Patient requires set up or clean up by helper. Patient completes activity by themselves 4 Supervision or touching assist (CGA). Jewett provide cues , steadying assist 3 The helper provides less than half the effort to complete the activity 2 The helper provides more than half the effort to complete the activity 1 Dependent. The helper does all the effort to complete an activity 7 Patient refused to complete or attempt activity 9 The patient did not perform the activity before the current illness or injury 88 Not attempted due to Medical conditions or safety concerns Transfers (B, C, W/C) (FIM): 1 Other Treatment Pt. in bed. States that he was up very early this a.m. due to having difficulty sleeping. Pt. states that nursing helped him up to his wheelchair at 3 a.m., and he cleaned up himself at the sink from wheelchair level. Pt. also reports that he is in clean clothing, so he did not want to practice dressing. Pt. agrees otherwise to work with OT. Transferred supine-sit with max assist. Attempted at first to stand with walker and max assist. Pt. is unable to do this. No core strength noted. Transferred to wheelchair with max x 2 with use of slide board. Pt. able to self propel wheelchair to therapy gym. Tolerated nut/bolt activity for fine motor strength. Pt. able to take nuts/bolts off board, but donned 1 lb. wrist weights to put them on for UE strengthening. Pt. reports that he can "feel this." Pt. self propelled wheelchair back to room and worked on transferring back to bed via slide board with max x 2. Dependent x 2 for sit-supine and bed mobility. Education OT Patient Education: Correct positioning, Exercise program, Modified ADL techniques, Progress toward Goal/Update tx plan, Purpose of tx/functional activities, Reviewed precautions, Rehab process, Transfer techniques Teaching Recipient: Patient Teaching Methods: Demonstration, Discussion Response to Teaching: Verbalize Understanding, Return Demonstration OT Short Term Goals Short Term Goals Time Frame: Oct 04, 2018 Grooming(FIM): 4 Bathing(FIM): 3 Upper Body Dressing(FIM): 4 Lower Body Dressing(FIM): 3 Toileting(FIM): 3 Transfers (B,C,W/C) (FIM): 4 Toilet/Commode Transfer(FIM): 3 Additional Short Term Goals: 1-Demonstrate ADL Tasks, 2-Verbalize Und erstanding, 3-ImproveStrength/Gilbert 1=Demonstrate adherence to instructed precautions during ADL tasks. 2=Patient will verbalize/demonstrate understanding of assistive devices/modifications for ADL. 3=Patient will improve strength/tolerance for activity to enable patient to perform ADL's. OT Hemodialysis Charge Nurse Goals Hemodialysis Charge Nurse Goals Time Frame: Oct 25, 2018 Eating (FIM): 6 Eating (QC): 6 Groomin Oral Hygiene (QC): 6 Bathing(FIM): 5 Shower/Bathe Self (QC): 5 Upper Body Dressing(FIM): 5 Upper Body Dressing (QC): 5 Lower Body Dressing(FIM): 5 Lower Body Dressing (QC): 5 On/Off Footwear (QC): 5 Toileting(FIM): 5 Toileting Hygiene (QC): 5 Toilet/Commode Transfer(FIM): 5 Toilet/Commode Transfer (QC): 5 Shower Transfer(FIM): 5 Additional Goals: 1-Demonstrate ADL Tasks, 2-Verbalize Understanding, 3- ImproveStrength/Gilbert 1=Demonstrate adherence to instructed precautions during ADL tasks. 2=Patient will verbalize/demonstrate understanding of assistive devices/modifications for ADL. 3=Patient will improve strength/tolerance for activity to enable patient to perform ADL's. OT Education/Plan Problem List/Assessment Assessment: Decreased Activ Tolerance, Decreased UE Strength, Dependent Transfers, Impaired Bed Mobility, Impaired Funct Balance, Impaired I ADL's, Impaired Self-Care Skills, Restricted Funct UE ROM Pt demonstrates decreased mobility, strength, activity tolerance, and ADL functioning. Pt to benefit from skilled OT intervention for ADL training, transfers, strengthening, and home safety education to increase level of independence and allow safe discharge home. Discharge Recommendations Plan/Recommendations: Continue POC Therapy D/C Recommendations: Home w/ Family Support, Occupational Therapy Home Care, Scheduled Assistance Treatment Plan/Plan of Care Treatment,Training & Education: Yes Patient would benefit from OT for education, treatment and training to promote independence in ADL's, mobility, safety and/or upper extremity function for ADL's. Plan of Care: ADL Retraining, Functional Mobility, Group Exercise/Act as Ind, UE Funct Exercise/Act Treatment Duration: Oct 25, 2018 Frequency: At least 5 of 7 days/Wk (IRF) Estimated Hrs Per Day: 1.5 hours per day Agreement: Yes Rehab Potential: Fair Time/GCodes Start Time: 11:00 Stop Time: 12:00 Total Time Billed (hr/min): 60 Billed Treatment Time 1, FA x 4 ANURAG HENRIQUEZ OT Sep 30, 2018 14:51
--- NOTE | 2018-09-30 14:57 | Therapy Group Daily Note ---
Therapy Daily Group Note Patient Education Topic Other List Below (transfer techniques) Exercises LE Seated Exercise, UE Exercise Session Ratio (pt:therapist): 3:1 Goal of Session: Safety with Transfers Goal Met for this Session: Yes Pt Benefit of Group: Increased Functional Safety, Increased Functional Strength, Socialization Other/Notes Pt. participated in group PT OT session this date. Pt. was social, shared his name and what his first childhood job was . Pts enjoyed visiting and laughed at each others short stories. Pts were lead through U&L extremity exercises as well as vocalization and annunciation, oral motor exercises. TRF techniques and safety were demonstrated for bed mob, sup to sit, sit to stand and equipment used for each if needed. Pt. to room after group with assist to bed, call husain at side Start Time: 13:00 Stop Time: 14:15 Total Billed Treatment Time: 75 Total Billed Treatment 1,GRP ADILSON BETH ADMITTING CLERK Sep 30, 2018 14:57
--- NOTE | 2018-09-30 16:01 | Pulmonary Progress Note ---
Subjective Time Seen by a Provider: 08:05 Subjective/Events-last exam SOB improved Sepsis Event Evaluation Height, Weight, BMI Height: 5'6.00" Weight: 205lbs. 0.0oz. 92.805773se; 33.1 BMI Method:Stated Exam Exam Vital Signs Date Time Temp Pulse Resp B/P (MAP) Pulse Ox O2 Delivery O2 Flow Rate FiO2 09/30/18 15:45 97.6 60 14 133/73 (93) 95 Room Air 09/30/18 12:00 97.7 79 18 165/90 (115) 96 Room Air 09/30/18 11:17 95 Room Air 09/30/18 08:34 Room Air 09/30/18 08:00 96.8 75 20 168/90 (116) 95 Room Air 09/30/18 04:00 97.5 76 18 158/82 (107) 96 Room Air 09/30/18 02:14 95 NIV CPAP 21 09/30/18 00:13 97.4 59 16 137/76 (96) 96 Room Air 09/29/18 23:03 97 NIV CPAP 21 09/29/18 21:00 Room Air 09/29/18 19:37 98.2 62 18 151/74 (99) 97 Room Air 09/29/18 19:19 96 Room Air I & O 09/30/18 07:00 Intake Total 1420 ml Output Total 2550 ml Balance -1130 ml Height & Weight Height: 5'6.00" Weight: 205lbs. 0.0oz. 92.747908ds; 33.1 BMI Method:Stated General Appearance: No Apparent Distress, WD/WN, Chronically ill HEENT: PERRL/EOMI, Normal ENT Inspection, Pharynx Normal, Moist Mucous Membra jacqueline Neck: Full Range of Motion, Normal Inspection, Non Tender, Supple Respiratory: Chest Non Tender, Lungs Clear, Normal Breath Sounds, No Accessory Muscle Use, No Respiratory Distress, Decreased Breath Sounds Cardiovascular: No Edema, No Gallop, No JVD, No Murmur, Irregularly Irregular Extremity: Normal Capillary Refill, Normal Inspection, Normal Range of Motion, Non Tender, No Calf Tenderness, No Pedal Edema Neurologic/Psychiatric: Alert, Oriented x3, No Motor/Sensory Deficits, Normal Mood/Affect, Motor Weakness (generalized all extremities 4/5) Skin: Normal Color, Warm/Dry Lymphatic: No Adenopathy Results Lab Laboratory Tests 09/30/18 06:22 Assessment/Plan Assessment/Plan Pulmonary hemorrhage -improved -Last hospitalization I check ANCA, Anti-Glomerular BM, and GENE - they were negative - echo shows EF 60-65% -monitor -prednisone taper Leukocytosis - probably secondary to prednisone -Monitor -repeat CXR DM -SSI may need to start Levemir BRIDGER -Out pt JUAN Don DO Sep 30, 2018 16:01
[2018-09-30] MEDS: TAMSULOSIN 0.4 MG (FLOMAX) CAP PO SCH (17:46)
[2018-09-30] MEDS: LOSARTAN 25 MG (COZAAR) TAB PO SCH (17:47)
--- NOTE | 2018-09-30 18:43 | NUR ---
Spoke w Dr. Mijares per request of Radiology staff d/t transfer concerns. rec'd order to change to 1 view.
--- NOTE | 2018-09-30 19:05 | Diagnostic Imaging Report ---
INDICATION: Shortness of air. TIME OF EXAM: 6:43 PM COMPARISON: Correlation is made to prior study 09/25/2018. FINDINGS: Changes of median sternotomy and CABG are noted. Cardiac pacer is in place. Lungs appear to be fairly clear. Previously noted infiltrates have nearly completely resolved. No effusion or pneumothorax is seen. IMPRESSION: Resolution of previously noted pulmonary infiltrates when compared with exam 5 days earlier. Dictated by: Dictated on workstation # [id number]
--- NOTE | 2018-09-30 19:28 | NUR ---
bedside report received from KIRILL CASAREZ, assume care of pt
--- NOTE | 2018-09-30 19:45 | Progress Note - Cardiology ---
Cardiology SOAP Progress Note Subjective: No cp or palp or syncope Gen malaise and exertional shortness of breath, slowly improving Objective: I&O/Vital Signs 09/30/18 09/30/18 09/30/18 09/30/18 08:00 08:34 11:17 12:00 Temp 96.8 97.7 Pulse 75 79 Resp 20 18 B/P (MAP) 168/90 (116) 165/90 (115) Pulse Ox 95 95 96 O2 Delivery Room Air Room Air Room Air Room Air 09/30/18 15:45 Temp 97.6 Pulse 60 Resp 14 B/P (MAP) 133/73 (93) Pulse Ox 95 O2 Delivery Room Air 09/30/18 00:00 Intake Total 1020 ml Output Total 1000 ml Balance 20 ml Weight (Pounds): 205 Weight (Ounces): 0.0 Weight (Calculated Kilograms): 92.162122 Constitutional: AAO x 3, well-developed, well-nourished Respiratory: No accessory muscle use; other (good bilat air entry, diminished at the bases) Cardiovascular: regular rate-rhythm, S1 and S2, systolic murmur (soft GRETA at card base) Gastrointestional: No tender; soft; No guarding, No rebound; audible bowel sounds Extremities: swelling (mild bilat leg edema); No clubbing, No cyanosis Neurologic/Psychiatric: oriented x 3, grossly intact, power is 5/5 both on sides Skin: No rash on exposed areas, No ulcerations on exposed areas Results/Procedures: Labs Laboratory Tests 09/30/18 00:03: Glucometer 166H 09/30/18 05:11: Glucometer 135H 09/30/18 06:22: White Blood Count 18.8H, Red Blood Count 3.92L, Hemoglobin 12.1L, Hematocrit 36L , Mean Corpuscular Volume 91, Mean Corpuscular Hemoglobin 31, Mean Corpuscular Hemoglobin Concent 34, Red Cell Distribution Width 14.9H, Platelet Count 212, Mean Platelet Volume 10.2, Neutrophils (%) (Auto) 86H, Lymphocytes (%) (Auto) 7L , Monocytes (%) (Auto) 7, Eosinophils (%) (Auto) 0, Basophils (%) (Auto) 1, Neutrophils # (Auto) 16.1H, Lymphocytes # (Auto) 1.3, Monocytes # (Auto) 1.3H, Eosinophils # (Auto) 0.0, Basophils # (Auto) 0.1, Neutrophils % (Manual) 70, Lymphocytes % (Manual) 10, Monocytes % (Manual) 3, Metamyelocytes % 8, Band Neutrophils 9, Polychromasia SLIGHT, Spherocytes SLIGHT, Sodium Level 139, Potassium Level 4.2, Chloride Level 103, Carbon Dioxide Level 26, Anion Gap 10, Blood Urea Nitrogen 22H, Creatinine 0.74, Estimat Glomerular Filtration Rate > 60, BUN/Creatinine Ratio 30, Glucose Level 159H, Calcium Level 8.7, Corrected Calcium 9.3, Total Bilirubin 0.9, Aspartate Amino Transf (AST/SGOT) 30, Alanine Aminotransferase (ALT/SGPT) 57H, Alkaline Phosphatase 74, Total Protein 5.6L, Albumin 3.3 09/30/18 11:39: Glucometer 121H 09/30/18 18:37: Glucometer 241H Laboratory Tests 09/30/18 06:22 A/P: Assessment: Hemoptysis and pulmonary hemorrhage necessitating discontinuation of Eliquis and aspirin Echo of 09/19/18: LVEF 60-65%, biatrial enlargement, mod MR, mild to mod TR, RVSP 45 mmHg 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 Cardiac cath from December 30, 2013 in which successful GAURI x 2, one to the proximal and one to the mid vessel LAD, was done. 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 Pacemaker currently in the VVIR mode, due to permanent atrial fib. The patient had a pulse generator change out on 12/18/2011. The device is functioning normally per last interrogation of September 23, 2018 (DIMIRTIOS estimate 11 months) History of ulcerative colitis, being managed by Dr. Parsons and Dr. Seymour Stroke prophylaxis with Eliquis - currently being held d/t hemoptysis Sleep apnea for which he is following with Dr Mijares - Bi-pap therapy Hyperlipidemia being treated with rosuvastatin. Mild carotid arterial disease that has been followed by Dr. Mcdaniel History of cholecystectomy. Impaired fasting glucose Elevated BMI of approx 30 S/p melanoma removal from the back in 2018, followed by Dr Parsons Plan: * Continue current regimen * Consider resuming aspirin soon * Monitor labs * I answered his and his 's CV-related questions TOSHA JUNIOR MD FACP FACC CCDS Sep 30, 2018 19:45
--- NOTE | 2018-09-30 19:58 | NUR ---
Pt had c/o that he hadn't been sleeping good at night. Reports that he takes Melatonin 10 mg at home, pt is getting [address] Saravia & rec'd orders to increase doses to home dose of 10 mg.
--- NOTE | 2018-09-30 21:00 | NUR ---
assessments & interventions completed, see assessments & interventions, back to bed with sit to stand & 2 staff members
--- NOTE | 2018-09-30 21:53 | NUR ---
refused Senokot took melatonin 9mg for sleep
[2018-09-30] MEDS: MESALAMINE 1.2 GM PO SCH (21:54)
[2018-09-30] MEDS: MELATONIN 3 MG TABLET PO PRN (22:08)
[2018-10-01] VITALS (8 sets, daily range): BP systolic 108–135; BP diastolic 65–75
--- NOTE | 2018-10-01 00:05 | NUR ---
fsbs 205 NovoLog 6 units given
[2018-10-01] MEDS: inSUlin ASPART (NovoLOG) 1 UNIT/0.01 ML (CHARGE PER UNIT) SC SCH ×4 (00:18→18:34)
[2018-10-01 06:14] LABS: BASOPHILS # (AUTO) 0.1 10^3/uL (0.0-0.1); BASOPHILS % (AUTO) 0 % (0-10); EOSINOPHILS % (AUTO) 0 % (0-10); HEMATOCRIT 37 % (40-54); HEMOGLOBIN 12.6 G/DL (13.3-17.7); LYMPHOCYTES # (AUTO) 1.5 X 10^3 (1.0-4.0); LYMPHOCYTES % (AUTO) 8 % (12-44); MEAN CORPUSCULAR HEMOGLOBIN 31 PG (25-34); MEAN CORPUSCULAR HGB CONC 34 G/DL (32-36); MEAN CORPUSCULAR VOLUME 90 FL (80-99); MEAN PLATELET VOLUME 9.8 FL (7.4-10.4); MONOCYTES # (AUTO) 1.9 X 10^3 (0.0-1.0); MONOCYTES % (AUTO) 11 % (0-12); NEUTROPHILS # (AUTO) 14.3 X 10^3 (1.8-7.8); NEUTROPHILS % (AUTO) 80 % (42-75); PLATELET COUNT 234 10^3/uL (130-400); RED CELL DISTRIBUTION WIDTH 15.2 % (10.0-14.5); WHITE BLOOD COUNT 17.8 10^3/uL (4.3-11.0)
[2018-10-01 06:55] LABS: ALANINE AMINOTRANSFERASE 62 U/L (0-55); ALBUMIN 3.3 GM/DL (3.2-4.5); ALKALINE PHOSPHATASE 76 U/L (40-136); BILIRUBIN,TOTAL 0.7 MG/DL (0.1-1.0); BUN/CREATININE RATIO 28; CALCIUM 8.6 MG/DL (8.5-10.1); CARBON DIOXIDE 26 MMOL/L (21-32); CHLORIDE 104 MMOL/L (98-107); CREATININE SERUM 0.76 MG/DL (0.60-1.30); GFR ESTIMATED > 60; GLUCOSE 110 MG/DL (70-105); SODIUM 138 MMOL/L (135-145); TOTAL PROTEIN 5.7 GM/DL (6.4-8.2)
[2018-10-01] MEDS: predniSONE 20 MG TAB PO SCH (07:03)
[2018-10-01] MEDS: LACTOBACILLUS ACIDOPHILUS (PROBIOTIC) CAPSULE PO SCH ×2 (07:03→18:33)
[2018-10-01] MEDS: PANTOPRAZOLE 40 MG (PROTONIX) TAB PO SCH (07:03)
--- NOTE | 2018-10-01 07:30 | NUR ---
bedside report given to FREDDIE CASAREZ
[2018-10-01] MEDS: RT-ALBUTEROL/IPRATROPIUM 3 ML (DUONEB) VIAL INH SCH ×2 (07:38→20:01)
[2018-10-01] MEDS: SENNA W/DOCUSATE (SENOKOT S) TABLET PO SCH ×2 (08:21→21:08)
[2018-10-01] MEDS: meTOprolol TARTRATE 50 MG (LOPRESSOR) TAB PO SCH ×2 (08:27→21:06)
[2018-10-01] MEDS: LORATADINE (CLARITIN) 10 MG TAB PO SCH (08:27)
[2018-10-01] MEDS: DILTIAZEM 300 MG (CARDIZEM CD) CAP PO SCH (08:27)
[2018-10-01] MEDS: LOPERAMIDE 2 MG (IMODIUM) TABLET PO SCH (08:27)
[2018-10-01] MEDS: DICLOFENAC 1% GEL 100 GM (VOLTAREN) TUBE TOP SCH ×4 (08:35→21:08)
--- NOTE | 2018-10-01 09:37 | PM&R Progress Note ---
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 Parsons who presents after a complex ICU stay which included intubation due to respiratory insufficiency due to recurrent pulmonary hemorrhage requiring airway protection and placed on treatment for hospital acquired pneumonia. Patient is not an anticoagulation candidate at this current time due to the recurrent hemorrhages. Patient is doing extremely well very weak and will require intensive rehabilitation in order to return home. Prior level of functioning was independent with ADLs and ambulation. He does have a history of inflammatory bowel disease of which he has a lot of diarrhea which is chronic. He denies any significant pain and he does have lower extremity edema we have initiated LUIS EDUARDO her for compression therapy. His daughter from [facility] is here visiting him. I checked meds and labs. Blood pressure has been mildly elevated at 160/77 but he is not having any more dysphagia as a complication from intubation and we will discontinue Head catheter and telemetry. Subjective/Events-[place] [address] still on steroids No major issues Participating in all therapies Regaining strength rapidly Denies any pain Cough and SOB continues Using IS Crackles are noted on exam today lower lobes Good air expansion Checked meds and labs Conferred with RN Reviewed therapy notes Dramatically improving and benefitting from intensive therapy and in patient rehab Review of Systems General: Fatigue Pulmonary: Dyspnea Objective Exam Vital Signs Vital Signs Date Time Temp Pulse Resp B/P (MAP) Pulse Ox O2 Delivery O2 Flow Rate FiO2 10/01/18 15:54 97.3 83 16 133/75 (94) 96 Room Air 09/30/18 02:14 21 Capillary Refill : General Appearance: No Apparent Distress, WD/WN, Chronically ill HEENT: PERRL/EOMI, Normal ENT Inspection, Pharynx Normal, Moist Mucous M embr[place] Neck: Full Range of Motion, Normal Inspection, Non Tender, Supple Respiratory: Chest Non Tender, No Accessory Muscle Use, No Respiratory Distress, Crackles, Decreased Breath Sounds Cardiovascular: No Edema, No Gallop, No JVD, No Murmur, Irregularly Irregular Gastrointestinal: Normal Bowel Sounds, No Organomegaly, No Pulsatile Mass, Non Tender, Soft Back: Normal Inspection, No CVA Tenderness, No Vertebral Tenderness Extremity: Normal Capillary Refill, Normal Inspection, Normal Range of Motion, Non Tender, No Calf Tenderness, No Pedal Edema Neurologic/Psychiatric: Alert, Oriented x3, No Motor/Sensory Deficits, Normal Mood/Affect, Motor Weakness (generalized all extremities 4/5) Skin: Normal Color, Warm/Dry Lymphatic: No Adenopathy Results/Procedures Lab Laboratory Tests 10/01/18 06:00 Patient resulted labs reviewed. FIM Transfers Therapy Code Descriptions/Definitions Functional [place] Measure: 0=Not Assessed/NA 4=Minimal Assistance 1=Total Assistance 5=Supervision or Setup 2=Maximal Assistance 6=Modified [place] 3=Moderate Assistance 7=Complete [place] Therapy Quality Codes: 6 Independent with activity with or without an assistive device 5 Patient requires set up or clean up by helper. Patient completes activity by themselves 4 Supervision or touching assist (CGA). [place] provide cues , steadying assist 3 The helper provides less than half the effort to complete the activity 2 The helper provides more than half the effort to complete the activity 1 Dependent. The helper does all the effort to complete an activity 7 Patient refused to complete or attempt activity 9 The patient did not perform the activity before the current illness or injury 88 Not attempted due to Medical conditions or safety concerns Transfers (B, C, W/C) (FIM): 1 Scootin Rollin Roll Left to Right (QC): 2 Supine to/from Sit: 3 Sit to/from Stand: 2 Sit to Lying (QC): 2 Sit to Stand (QC): 1 Chair/Hss-gi-Nkdto Xfer(QC): 1 Bed to/from Chair: 2 Car Transfer (QC): 88 (Dependent on sit<->stand lift and poor trunk control c urrently) Gait Training Does the Patient Walk?: No and Walking Goal IS indicated Gait (FIM): 0 Distance (FIM): 0=does not occure Walk 10 feet (QC): 88 Walk 50 ft with 2 Turns(QC): 88 Walk 150 ft (QC): 88 Walking 10ft/uneven surface-QC: 88 Wheelchair Training Does the Pt Use a Wheelchair?: Yes Wheelchair (FIM): 4 Wheelchair Distance: 0=does not occure Distance: 150'x2 Wheelchair Level of Assist: 4 Wheel 50 ft with 2 turns (QC): 3 Wheel 150 ft (QC): 3 Type of Wheelchair: Manual Stair Training Stairs (FIM): 0 1 Step (curb) (QC): 88 4 Steps (QC): 88 12 Steps (QC): 88 Balance Picking up an Object (QC): 88 Mental Status/Objective Comprehension: 7 Expression: 7 Social Interaction: 7 Problem Solvin Memory: 7 ADL-Treatment Feedin Eating (QC): 5 Groomin Oral Hygiene (QC): 2 Bathin (Using shower chair with cutout and hand held shower) Bathing Location: L Arm, R Arm, L Upper Leg, R Upper Leg, Chest, Abdomen, Perineal Area Shower/Bathe Self (QC): 3 Upper Extremity Dressin Upper Body Dressing (QC): 2 Lower Extremity Dressin Lower Body Dressing (QC): 1 On/Off Footwear (QC): 1 Toiletin (Pt requires assist x2 to manipulate clothing and cleanse self.) Toileting Hygiene (QC): 1 Toilet/Commode Transfer: 1 Toilet Transfer (QC): 1 Shower: 1 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 pulmonary hemorrhage no longer an anticoagulation candidate at this current time Status post pneumonia Chronic atrial fibrillation Hypertension Hyperlipidemia Ulcerative colitis Insomnia BPH COPD Leukocytosis Insomnia Plan: Monitor labs Wean steroids O2 Nebs BP management IRF therapy protocols 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
--- NOTE | 2018-10-01 09:38 | Individualized Plan of Care ---
Individualized Plan of Care Rehab Nursing IPOC Order Admission Date Sep 27, 2018 at 16:25 Current Orders Orders Admission Order(Inpt,Obs,Sdc) (09/27/18 16:00) Pitch Worker-Inpt Rehab Con (09/27/18 16:00) Rehab Nursing Orders-Ipoc (09/27/18 16:00) Physical Therapy Rehab Orders (09/27/18 16:00) Occupational Therapy Rehab Ord (09/27/18 16:00) Speech Therapy Rehab Orders (09/27/18 16:00) Intake & Output 06,14,22 (09/27/18 16:00) Precautions (Aru) (09/27/18 16:00) Weekly Weight (Lbs) WEEK (09/27/18 16:00) Rehab-Intensity Of Therapy (09/27/18 16:00) Initiate Admission Nursing Pro .admission (09/27/18 16:00) Code/Resuscitation (09/27/18 17:12) Initiate Admission Nursing Pro .admission (09/27/18 17:12) General/Regular (09/28/18 Breakfast) Acetaminophen Tablet/Caplet (Tylenol T (09/27/18 17:15) Albuterol/Ipra Inhalation Soln (Duoneb I (09/27/18 18:00) Diclofenac 1% Gel (Voltaren 1% Gel) (09/27/18 21:00) Diltiazem Cd 24 Hr Capsule (Cardizem Cd (09/28/18 09:00) Fluticasone Nasal [place] (Flonase Nasal S (09/27/18 17:15) Lactobacillus Acidophilus Cap (Acidophil (09/28/18 07:00) Loperamide Tablet (Imodium Tablet) (09/27/18 21:00) Loratadine Tablet (Claritin Tablet) (09/28/18 09:00) Losartan Tablet (Cozaar Tablet) (09/27/18 18:00) Patient May Use Own Med,Single (Patient (09/27/18 21:00) Phenol Throat [place] (Chloraseptic [place]) (09/27/18 17:15) Phenol/Na Phenolate Lozenge (Chlorasepti (09/27/18 21:00) Tamsulosin Capsule (Flomax Capsule) (09/27/18 18:00) Insulin Aspart (Novolog) (Novolog (Charg (09/27/18 18:00) Metoprolol Tartrate (Ir) Tab (Lopressor (09/27/18 21:00) Methylprednisolone Sod Succ (Solu-Medrol (09/27/18 21:00) Communication For Respiratory (09/27/18 17:12) Consult Pulmonology (09/27/18 17:12) Dietary Consult (09/27/18 17:12) Svn Small Volume Nebulizer (09/27/18 17:12) Pantoprazole Tablet (Protonix Tablet) (09/28/18 07:00) Hydralazine Tablet (Apresoline Tablet) (09/27/18 17:15) Cbc With Automated Diff (09/28/18 06:00) Comprehensive Metabolic Panel (09/28/18 06:00) Acetaminophen Tablet (Tylenol Tablet) (09/27/18 17:15) Alprazolam Tablet (Xanax Tablet) (09/27/18 17:15) Calcium Carbonate Chew Tablet (Antacid C (09/27/18 17:15) Diphenhydramine Tablet (Benadryl Tablet) (09/27/18 17:15) Docusate Sodium Capsule (Colace Capsule) (09/27/18 17:15) Hydrocodone/Apap 5/325 Tablet (Lortab 5 (09/27/18 17:15) Loperamide Tablet (Imodium Tablet) (09/27/18 17:15) Melatonin Tablet (Melatonin Tablet) (09/27/18 17:15) Ondansetron Injection (Zofran Injectio (09/27/18 17:15) Guaifenesin/Codeine Syrup (Robitussin Ac (09/27/18 17:15) Senna S Tablet (Senokot S Tablet) (09/27/18 21:00) General/Regular (09/27/18 Dinner) Accucheck Q6hr Q6HR (09/28/18 00:54) Patient Visit (09/28/18 ) Pt Eval High Complexity (09/28/18 ) Functional Activities, Ea 15 (09/28/18 ) Phenol/Na Phenolate Lozenge (Chlorasepti (09/29/18 10:30) Cbc With Automated Diff (7/1/19 06:00) Comprehensive Metabolic Panel (09/30/18 06:00) Manual Differential (09/30/18 06:22) Prednisone Tablet (Deltasone Tablet) (10/01/18 07:00) Patient Visit (09/30/18 ) Wheelchair Mgmt/Propulsn 15min (09/30/18 ) Functional Activities, Ea 15 (09/30/18 ) Exercise Therap, Ea 15 Min (09/30/18 ) Albuterol/Ipra Inhalation Soln (Duoneb I (09/30/18 21:00) Patient Visit (09/30/18 ) Therapeutic, Group (09/30/18 ) Patient Visit (09/30/18 ) Speech Sound Lang Comp (09/30/18 ) Chest 1 View, Ap/Pa Only (09/30/18 18:42) Melatonin Tablet (Melatonin Tablet) (09/30/18 20:00) Cbc With Automated Diff (10/01/18 06:00) Comprehensive Metabolic Panel (10/01/18 06:00) Trazodone Tablet (Desyrel Tablet) (09/30/18 21:30) Patient Visit (10/01/18 ) Functional Activities, Ea 15 (10/01/18 ) Exercise Therap, Ea 15 Min (10/01/18 ) Wheelchair Mgmt/Propulsn 15min (10/01/18 ) Patient Visit (10/01/18 ) Exercise Therap, Ea 15 Min (10/01/18 ) Functional Activities, Ea 15 (10/01/18 ) Aspirin Chewable Tablet (Baby Aspirin Ch (10/02/18 09:00) Rehab Nursing Orders: Ongoing Assess. of Cognitive Status, Ongoing Assess. of Function Status, Bladder Management, Bladder Scan, Bladder Training, Bowel Management, Bowel Training, Disease Management & Educaiton, DVT Prophylaxis, Fluid/Electrolyte/Nutrition Mgmt, Infection Prevention, Medication Management & Education, Management of Risks & Complications, Management of Skin Intergrity, Nutrition Management, Pain Management, Patient/Family Support, Safety Management, Swallow Precautions Intensity of Therapy to be met Patient to be seen: Min.3h per day/5 of 7d PT IPOC Problem List: Activity Tolerance, Functional Strength, Safety, Balance, Gait, Transfer, Bed Mobility, ROM Treatment Plan: Continue Plan of Care Bed Mobility, Concurrent Therapy, Education, Functional Activity [place], Functional Strength, Group Therapy, Gait, Safety, Therapeutic Exercise, Transfers Treatment Duration: Oct 26, 2018 Frequency: At least 5 of 7 days/Wk (IRF) Estimated Hrs Per Day: 1.5 hours per day OT IPOC Problems: Decreased Activ Tolerance, Decreased UE Strength, Dependent Transfers, Impaired Bed Mobility, Impaired Funct Balance, Impaired I ADL's, Impaired Self-Care Skills, Restricted Funct UE ROM OT Treatment, Training and Edu: Yes OT Problems Pt demonstrates decreased mobility, strength, activity tolerance, and ADL functioning. Pt to benefit from skilled OT intervention for ADL training, transfers, strengthening, and home safety education to increase level of independence and allow safe discharge home. Plan of Care: ADL Retraining, Functional Mobility, Group Exercise/Act as Ind, UE Funct Exercise/Act Treatment Duration: Oct 25, 2018 Frequency: At least 5 of 7 days/Wk (IRF) Estimated Hrs Per Day: 1.[address] IPOC Speech Therapy Treatment Plan: Discontinue ST Treatment Duration: Sep 30, 2018 Frequency: 1 time per week Estimated Hrs Per Day: .25 hour per day Pitch Worker/Case Mgmt Pitch Worker/Case Managemen: Discharge Planning Dietitian/Client Relations Specialist Dietitian/Client Relations Specialist to monitor nutritional status and make changes and/or r ecommendations as needed and work with speech pathology on dietary upgrades as the occur. Physician IPOC Medical Issues being managed closely and that require the 24 hour availability of a physician: Two recent critical illnesses including most recent vent dependence will require close monitoring of recurrence of respiratory failure along with close monitorin g of elevated wbc and crackles in lower lungs along with wean of steroids Brief Synthesis of Preadmission Screen, Post-Admission Evaluation, and Therapy Evaluations: PT will focus on stamina and ambulation and strengthening OT will focus on independent ADL's Medical Prognosis: Good Anticipated Length of Stay: 10 days KOBI ESTEBAN DO Oct 01, 2018 09:38
--- NOTE | 2018-10-01 11:33 | Progress Note - Cardiology ---
Cardiology SOAP Progress Note Subjective: Sitting up in bed. Verbalizes frustration with continued weakness. No c/o CP or palpitations.. Dyspnea improved. Occ productive cough of "cream colored" sputum without any blood. Objective: I&O/Vital Signs 10/01/18 10/01/18 10/01/18 10/01/18 04:27 07:38 08:00 09:00 Temp 97.2 97.7 Pulse 65 68 Resp 16 16 B/P (MAP) 135/74 (94) 116/66 (83) Pulse Ox 96 96 98 O2 Delivery Room Air Room Air Room Air Room Air 10/01/18 12:00 Temp 97.4 Pulse 70 Resp 20 B/P (MAP) 112/74 (87) Pulse Ox 97 O2 Delivery Room Air 10/01/18 00:00 Intake Total 1230 ml Output Total 1475 ml Balance -245 ml Weight (Pounds): 205 Weight (Ounces): 0.0 Weight (Calculated Kilograms): 92.513861 Constitutional: AAO x 3, well-developed, well-nourished Respiratory: No accessory muscle use; other (good bilat air entry, diminished at the bases) Cardiovascular: regular rate-rhythm, S1 and S2, systolic murmur (soft GRETA at card base) Gastrointestional: No tender; soft; No guarding, No rebound; audible bowel sounds Extremities: swelling (mild bilat leg edema); No clubbing, No cyanosis Neurologic/Psychiatric: oriented x 3, grossly intact, power is 5/5 both on sides Skin: No rash on exposed areas, No ulcerations on exposed areas Results/Procedures: Labs Laboratory Tests 09/30/18 18:37: Glucometer 241H 10/01/18 00:05: Glucometer 205H 10/01/18 06:00: Glucometer 109, White Blood Count 17.8H, Red Blood Count 4.08L, Hemoglobin 12.6L , Hematocrit 37L, Mean Corpuscular Volume 90, Mean Corpuscular Hemoglobin 31, Mean Corpuscular Hemoglobin Concent 34, Red Cell Distribution Width 15.2H, Platelet Count 234, Mean Platelet Volume 9.8, Neutrophils (%) (Auto) 80H, Lymphocytes (%) (Auto) 8L, Monocytes (%) (Auto) 11, Eosinophils (%) (Auto) 0, Basophils (%) (Auto) 0, Neutrophils # (Auto) 14.3H, Lymphocytes # (Auto) 1.5, Monocytes # (Auto) 1.9H, Eosinophils # (Auto) 0.0, Basophils # (Auto) 0.1, Sodium Level 138, Potassium Level 4.0, Chloride Level 104, Carbon Dioxide Level 26, Anion Gap 8, Blood Urea Nitrogen 21H, Creatinine 0.76, Estimat Glomerular Filtration Rate > 60, BUN/Creatinine Ratio 28, Glucose Level 110H, Calcium Level 8.6, Corrected Calcium 9.2, Total Bilirubin 0.7, Aspartate Amino Transf (AST/SGOT) 34, Alanine Aminotransferase (ALT/SGPT) 62H, Alkaline Phosphatase 76, Total Protein 5.7L, Albumin 3.3 10/01/18 11:58: Glucometer 151H Laboratory Tests 09/30/18 06:22 10/01/18 06:00 A/P: Assessment: Hemoptysis and pulmonary hemorrhage necessitating discontinuation of Eliquis and aspirin Echo of 09/19/18: LVEF 60-65%, biatrial enlargement, mod MR, mild to mod TR, RVSP 45 mmHg 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 Cardiac cath from December 30, 2013 in which successful GAURI x 2, one to the proximal and one to the mid vessel LAD, was done. 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 Pacemaker currently in the VVIR mode, due to permanent atrial fib. The patient had a pulse generator change out on 12/18/2011. The device is functioning normally per last interrogation of September 23, 2018 (DIMITRIOS estimate 11 months) History of ulcerative colitis, being managed by Dr. Parsons and Dr. Seymour Stroke prophylaxis with Eliquis - currently being held d/t hemoptysis Sleep apnea for which he is following with Dr Mijares - Bi-pap therapy Hyperlipidemia being treated with rosuvastatin. Mild carotid arterial disease that has been followed by Dr. Mcdaniel History of cholecystectomy. 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 Continue to hold off on OAC * Monitor labs VIET CHRISTIAN E LEARNING SPECIALIST Oct 01, 2018 11:33 TOSHA JUNIOR MD FACP FAC CCDS Oct 01, 2018 15:43
--- NOTE | 2018-10-01 11:53 | Physical Therapy Daily Note ---
PT Daily Note-Current Subjective Patient in bed pre tx, agrees to PT, has 3/10 pain in right thigh and calf. Patient needs to urinate, will sit on the edge of the bed and therapist has to hold urinal. Appearance Patient in wheelchair at bedside post tx, has nurse call, phone, tray, all needs met. Mental Status Patient Orientation: Normal For Age Transfers Therapy Code Descriptions/Definitions Functional [place] Measure: 0=Not Assessed/NA 4=Minimal Assistance 1=Total Assistance 5=Supervision or Setup 2=Maximal Assistance 6=Modified [place] 3=Moderate Assistance 7=Complete [place] Therapy Quality Codes: 6 Independent with activity with or without an assistive device 5 Patient requires set up or clean up by helper. Patient completes activity by themselves 4 Supervision or touching assist (CGA). [place] provide cues , steadying assist 3 The helper provides less than half the effort to complete the activity 2 The helper provides more than half the effort to complete the activity 1 Dependent. The helper does all the effort to complete an activity 7 Patient refused to complete or attempt activity 9 The patient did not perform the activity before the current illness or injury 88 Not attempted due to Medical conditions or safety concerns Transfers (B, C, W/C) (FIM): 2 Scootin Rollin Supine to/from Sit: 3 Sit to/from Stand: 2 Bed to/from Chair: 2 Max assist to stand and transfer, cues for hand placement and positioning Weight Bearing Right Lower Extremity: Right Full Weight Bearing Left Lower Extremity: Left Full Weight Bearing Wheelchair Training Does the Pt Use a Wheelchair?: Yes Wheelchair (FIM): 5 Distance: 150'x2 Wheelchair Level of Assist: 5 Type of Wheelchair: Manual Exercises Stood in parallel bars x3 for about 30 seconds each time NuStep Minutes: 15 NuStep Workload: 5 Treatments bed mobility and transfers, standing, LE exercise, wheelchair management Assessment Current Status: Poor Progress still max assist with transfers PT Short Term Goals Short Term Goals Time Frame: Oct 12, 2018 Transfers (B,C,W/C) (FIM): 4 Wheelchair Distance: 150'x2 PT Assisted Goals Assisted Goals PT Assisted Goals Time Frame: Oct 26, 2018 Transfers (B,C,W/C) (FIM): 6 Sit to Lying (QC): 6 Lying-Sitting on Side/Bed(QC): 6 Sit to Stand (QC): 6 Rollin Roll Left to Right (QC): 6 Chair/Qch-ia-Enbme Xfer(QC): 6 Car Transfer (QC): 6 Does the Patient Walk: No and Walking Goal IS indicated Gait (FIM): 6 Gait distance (FIM): 3=150 ft Distance: 150 Walk 10 feet (QC): 6 Walk 10ft-Uneven Surface(QC): 6 Walk 50ft with 2 Turns (QC): 6 Walk 150 ft (QC): 6 Gait Level of Assist: 6 Gait Assistive Device: FWW Stairs (FIM): 6 # of Steps: 12 1 Step (curb) (QC): 6 4 Steps (QC): 6 12 Steps (QC): 6 Stairs Level Of Assist: 6 Picking up an Object (QC): 5 PT Plan Problem List Problem List: Activity Tolerance, Functional Strength, Safety, Balance, Gait, Transfer, Bed Mobility, ROM Treatment/Plan Treatment Plan: Continue Plan of Care Treatment Plan: Bed Mobility, Concurrent Therapy, Education, Functional Activity [place], Functional Strength, Group Therapy, Gait, Safety, Therapeutic Exercise, Transfers Treatment Duration: Oct 26, 2018 Frequency: At least 5 of 7 days/Wk (IRF) Estimated Hrs Per Day: 1.5 hours per day Patient and/or Family Agrees t: Yes Safety Risks/Education Patient Education: Transfer Techniques, Correct Positioning, W/C Management, Safety Issues Teaching Recipient: Patient Teaching Methods: Demonstration, Discussion Response to Teaching: Reinforcement Needed Time/GCodes Time In: 1100 Time Out: 1200 Total Billed Treatment Time: 60 Total Billed Treatment 1 visit [facility] 15' EX 15' FA 30' MARIA ELENA ESQUIVEL PT Oct 01, 2018 11:53
--- NOTE | 2018-10-01 12:27 | Occupational Ther Daily Note ---
OT Current Status-Daily Note Subjective No pain reported. Appearance Pt. is up in chair when OT enters room. Agrees to work with OT. Mental Status/Objective Patient Orientation: Person, Place Therapy Code Descriptions/Definitions Functional [place] Measure: 0=Not Assessed/NA 4=Minimal Assistance 1=Total Assistance 5=Supervision or Setup 2=Maximal Assistance 6=Modified [place] 3=Moderate Assistance 7=Complete [place] ADL-Treatment Therapy Code Descriptions/Definitions Functional [place] Measure: 0=Not Assessed/NA 4=Minimal Assistance 1=Total Assistance 5=Supervision or Setup 2=Maximal Assistance 6=Modified [place] 3=Moderate Assistance 7=Complete [place] Therapy Quality Codes: 6 Independent with activity with or without an assistive device 5 Patient requires set up or clean up by helper. Patient completes activity by themselves 4 Supervision or touching assist (CGA). [place] provide cues , steadying assist 3 The helper provides less than half the effort to complete the activity 2 The helper provides more than half the effort to complete the activity 1 Dependent. The helper does all the effort to complete an activity 7 Patient refused to complete or attempt activity 9 The patient did not perform the activity before the current illness or injury 88 Not attempted due to Medical conditions or safety concerns Lower Body Dressing (FIM): 2 Lower Body Dressing (QC): 2 On/Off Footwear (QC): 2 Transfers (B, C, W/C) (FIM): 1 Other Treatment Pt. reports that he was up very early this a.m., and was able to bathe/dress at sink from wheelchair level with nursing assistance. Declines showering today but states that he will tomorrow. Transferred to wheelchair with sit-stand lift. Able to self propel wheelchair to therapy gym once he was up. Went to parallel bars with mirror in front. Attempted several times to stand but pt. does not have the leg strength. Completed several LE exercises seated with attention to look at legs in mirror. Right LE is weaker than left and both LE are edematous. Pt. was issued and educated on AE for LE dressing. OT applied elastic laces to shoes and pt. practiced doffing/donning shoes/socks and shorts with AE. Overall, pt. requires max assist as he is unable to lift LE enough to clear feet. However, states that with practice he believes this is possible. Completed 7 minutes on arm bike at mod resistance to increase overall strength. Required several brief rest breaks. Self propelled back to room and pt. was transferred to bed using sit-stand lift. Max assist for sit-supine. All needs met in room. Education OT Patient Education: Correct positioning, Exercise program, Modified ADL techniques, Progress toward Goal/Update tx plan, Purpose of tx/functional activities, Reviewed precautions, Rehab process, Transfer techniques, Use of adapted equipment Teaching Recipient: Patient Teaching Methods: Demonstration, Discussion Response to Teaching: Verbalize Understanding, Return Demonstration OT Short Term Goals Short Term Goals Time Frame: Oct 04, 2018 Grooming(FIM): 4 Bathing(FIM): 3 Upper Body Dressing(FIM): 4 Lower Body Dressing(FIM): 3 Toileting(FIM): 3 Transfers (B,C,W/C) (FIM): 4 Toilet/Commode Transfer(FIM): 3 Additional Short Term Goals: 1-Demonstrate ADL Tasks, 2-Verbalize Understanding, 3-ImproveStrength/Gilbert 1=Demonstrate adherence to instructed precautions during ADL tasks. 2=Patient will verbalize/demonstrate understanding of assistive devic es/modifications for ADL. 3=Patient will improve strength/tolerance for activity to enable patient to perform ADL's. OT Conference Reservationist Goals Conference Reservationist Goals Time Frame: Oct 25, 2018 Eating (FIM): 6 Eating (QC): 6 Groomin Oral Hygiene (QC): 6 Bathing(FIM): 5 Shower/Bathe Self (QC): 5 Upper Body Dressing(FIM): 5 Upper Body Dressing (QC): 5 Lower Body Dressing(FIM): 5 Lower Body Dressing (QC): 5 On/Off Footwear (QC): 5 Toileting(FIM): 5 Toileting Hygiene (QC): 5 Toilet/Commode Transfer(FIM): 5 Toilet/Commode Transfer (QC): 5 Shower Transfer(FIM): 5 Additional Goals: 1-Demonstrate ADL Tasks, 2-Verbalize Understanding, 3- ImproveStrength/Gilbert 1=Demonstrate adherence to instructed precautions during ADL tasks. 2=Patient will verbalize/demonstrate understanding of assistive devices/modifications for ADL. 3=Patient will improve strength/tolerance for activity to enable patient to perform ADL's. OT Education/Plan Problem List/Assessment Assessment: Decreased Activ Tolerance, Decreased UE Strength, Dependent Transfers, Impaired Bed Mobility, Impaired Funct Balance, Impaired I ADL's, Impaired Self-Care Skills, Restricted Funct UE ROM Pt demonstrates decreased mobility, strength, activity tolerance, and ADL functioning. Pt to benefit from skilled OT intervention for ADL training, transfers, strengthening, and home safety education to increase level of independence and allow safe discharge home. Discharge Recommendations Plan/Recommendations: Continue POC Therapy D/C Recommendations: Home w/ Family Support, Occupational Therapy Home Care, Scheduled Assistance Equpiment Recommendations-D/C: Hip Kit Treatment Plan/Plan of Care Treatment,Training & Education: Yes Patient would benefit from OT for education, treatment and training to promote independence in ADL's, mobility, safety and/or upper extremity function for ADL's. Plan of Care: ADL Retraining, Functional Mobility, Group Exercise/Act as Ind, UE Funct Exercise/Act Treatment Duration: Oct 25, 2018 Frequency: At least 5 of 7 days/Wk (IRF) Estimated Hrs Per Day: 1.5 hours per day Agreement: Yes Rehab Potential: Fair Time/GCodes Start Time: 08:15 Stop Time: 09:45 Total Time Billed (hr/min): 90 Billed Treatment Time 1, ADL x 30minutes, Ex x 15minutes, FA x 45minutes ANURAG HENRIQUEZ OT Oct 01, 2018 12:27
--- NOTE | 2018-10-01 13:25 | Physical Therapy Daily Note ---
PT Daily Note-Current Subjective Patient in wheelchair at bedside pre tx, agrees to PT, has 5/10 pain in right leg and low back. Patient asks to get back into bed, agrees to exercises in bed. Nurse notified about pain. Appearance Patient in bed post tx with nurse call, phone, tray, all needs met. Mental Status Patient Orientation: Normal For Age Transfers Therapy Code Descriptions/Definitions Functional [place] Measure: 0=Not Assessed/NA 4=Minimal Assistance 1=Total Assistance 5=Supervision or Setup 2=Maximal Assistance 6=Modified [place] 3=Moderate Assistance 7=Complete [place] Therapy Quality Codes: 6 Independent with activity with or without an assistive device 5 Patient requires set up or clean up by helper. Patient completes activity by themselves 4 Supervision or touching assist (CGA). [place] provide cues , steadying assist 3 The helper provides less than half the effort to complete the activity 2 The helper provides more than half the effort to complete the activity 1 Dependent. The helper does all the effort to complete an activity 7 Patient refused to complete or attempt activity 9 The patient did not perform the activity before the current illness or injury 88 Not attempted due to Medical conditions or safety concerns Transfers (B, C, W/C) (FIM): 2 Scootin Rollin Supine to/from Sit: 3 Bed to/from Chair: 2 Weight Bearing Right Lower Extremity: Right Full Weight Bearing Left Lower Extremity: Left Full Weight Bearing Exercises Supine Ex: Ankle pumps, Quad Set, Glut sets, Heel Slides, Short Arc Quads, Straight leg raise, Hip abd/add Supine Reps: 20 Treatments transfers, bed mobility, LE exercise Assessment Current Status: Poor Progress increased pain PT Short Term Goals Short Term Goals Time Frame: Oct 12, 2018 Transfers (B,C,W/C) (FIM): 4 Wheelchair Distance: 150'x2 PT Care Home Goals Care Home Goals PT Insurance Claims Specialist Goals Time Frame: Oct 26, 2018 Transfers (B,C,W/C) (FIM): 6 Sit to Lying (QC): 6 Lying-Sitting on Side/Bed(QC): 6 Sit to Stand (QC): 6 Rollin Roll Left to Right (QC): 6 Chair/Mei-wx-Zjtan Xfer(QC): 6 Car Transfer (QC): 6 Does the Patient Walk: No and Walking Goal IS indicated Gait (FIM): 6 Gait distance (FIM): 3=150 ft Distance: 150 Walk 10 feet (QC): 6 Walk 10ft-Uneven Surface(QC): 6 Walk 50ft with 2 Turns (QC): 6 Walk 150 ft (QC): 6 Gait Level of Assist: 6 Gait Assistive Device: FWW Stairs (FIM): 6 # of Steps: 12 1 Step (curb) (QC): 6 4 Steps (QC): 6 12 Steps (QC): 6 Stairs Level Of Assist: 6 Picking up an Object (QC): 5 PT Plan Problem List Problem List: Activity Tolerance, Functional Strength, Safety, Balance, Gait, Transfer, Bed Mobility, ROM Treatment/Plan Treatment Plan: Continue Plan of Care Treatment Plan: Bed Mobility, Concurrent Therapy, Education, Functional Activity [place], Functional Strength, Group Therapy, Gait, Safety, Therapeutic Exercise, Transfers Treatment Duration: Oct 26, 2018 Frequency: At least 5 of 7 days/Wk (IRF) Estimated Hrs Per Day: 1.5 hours per day Patient and/or Family Agrees t: Yes Safety Risks/Education Patient Education: Transfer Techniques, Correct Positioning, Safety Issues Teaching Recipient: Patient Teaching Methods: Demonstration, Discussion Response to Teaching: Reinforcement Needed Time/GCodes Time In: 1300 Time Out: 1330 Total Billed Treatment Time: 30 Total Billed Treatment 1 visit FA 10' EX 20' MARIA ELENA ESQUIVEL PT Oct 01, 2018 13:25
[2018-10-01] MEDS: ACETAMINOPHEN 500 MG TAB (TYLENOL) PO PRN (14:34)
--- NOTE | 2018-10-01 15:24 | Pulmonary Progress Note ---
Subjective Time Seen by a Provider: 08:05 Subjective/Events-last exam PT is still very weak Sepsis Event Evaluation Height, Weight, BMI Height: 5'6.00" Weight: 205lbs. 0.0oz. 92.740888cr; 33.1 BMI Method:Stated Exam Exam Vital Signs Date Time Temp Pulse Resp B/P (MAP) Pulse Ox O2 Delivery O2 Flow Rate FiO2 10/01/18 12:00 97.4 70 20 112/74 (87) 97 Room Air 10/01/18 09:00 Room Air 10/01/18 08:00 97.7 68 16 116/66 (83) 98 Room Air 10/01/18 07:38 96 Room Air 10/01/18 04:27 97.2 65 16 135/74 (94) 96 Room Air 10/01/18 00:29 97.0 65 16 111/69 (83) 98 Room Air 09/30/18 21:30 65 18 153/73 (99) 95 Room Air 09/30/18 21:00 Room Air 09/30/18 20:54 94 Room Air 09/30/18 20:31 97.1 91 16 137/73 (94) 96 Room Air 09/30/18 15:45 97.6 60 14 133/73 (93) 95 Room Air I & O 10/01/18 07:00 Intake Total 1630 ml Output Total 2475 ml Balance -845 ml Height & Weight Height: 5'6.00" Weight: 205lbs. 0.0oz. 92.061581bc; 33.1 BMI Method:Stated General Appearance: No Apparent Distress, WD/WN, Chronically ill HEENT: PERRL/EOMI, Normal ENT Inspection, Pharynx Normal, Moist Mucous Membranes Neck: Full Range of Motion, Normal Inspection, Non Tender, Supple Respiratory: Chest Non Tender, Lungs Clear, Normal Breath Sounds, No Accessory Muscle Use, No Respiratory Distress, Decreased Breath Sounds Cardiovascular: No Edema, No Gallop, No JVD, No Murmur, Irregularly Irregular Extremity: Normal Capillary Refill, Normal Inspection, Normal Range of Motion, Non Tender, No Calf Tenderness, No Pedal Edema Neurologic/Psychiatric: Alert, Oriented x3, No Motor/Sensory Deficits, Normal Mood/Affect, Motor Weakness (generalized all extremities 4/5) Skin: Normal Color, Warm/Dry Lymphatic: No Adenopathy Results Lab Laboratory Tests 09/30/18 06:22 10/01/18 06:00 Assessment/Plan Assessment/Plan Pulmonary hemorrhage -improved -Last hospitalization I check ANCA, Anti-Glomerular BM, and GENE - they were negative - echo shows EF 60-65% -monitor -prednisone taper Leukocytosis - probably secondary to prednisone -Monitor -repeat CXR DM -SSI may need to start Levemir BRIDGER -Out pt JUAN Don DO Oct 01, 2018 15:24
[2018-10-01] MEDS: LOSARTAN 25 MG (COZAAR) TAB PO SCH (18:33)
[2018-10-01] MEDS: TAMSULOSIN 0.4 MG (FLOMAX) CAP PO SCH (18:34)
--- NOTE | 2018-10-01 19:03 | NUR ---
bedside report received from FREDDIE CASAREZ, assume care of pt
--- NOTE | 2018-10-01 19:23 | NUR ---
called with pt family concerns with restarting pt home med of lasix 40mh daily, orders received she would discuss with cardiology tomorrow.
--- NOTE | 2018-10-01 21:03 | NUR ---
assessments & interventions completed, see assessments & interventions, back to bed with sit to stand & 2 people assist
[2018-10-01] MEDS: MELATONIN 3 MG TABLET PO PRN (21:06)
[2018-10-01] MEDS: MESALAMINE 1.2 GM PO SCH (21:06)
[2018-10-02 03:50] VITALS: BP 142/80
[2018-10-02] MEDS: inSUlin ASPART (NovoLOG) 1 UNIT/0.01 ML (CHARGE PER UNIT) SC SCH ×4 (06:00→18:23)
[2018-10-02] MEDS: LACTOBACILLUS ACIDOPHILUS (PROBIOTIC) CAPSULE PO SCH ×2 (06:50→17:11)
[2018-10-02] MEDS: PANTOPRAZOLE 40 MG (PROTONIX) TAB PO SCH (06:50)
[2018-10-02] MEDS: predniSONE 20 MG TAB PO SCH (06:50)
[2018-10-02] MEDS: RT-ALBUTEROL/IPRATROPIUM 3 ML (DUONEB) VIAL INH SCH ×2 (07:09→23:53)
--- NOTE | 2018-10-02 07:26 | NUR ---
bedside report given to KIRILL CASAREZ
[2018-10-02 08:11] VITALS: BP 114/71
--- NOTE | 2018-10-02 09:26 | Pulmonary Progress Note ---
Subjective Time Seen by a Provider: 08:04 Subjective/Events-last exam Pt is doing better. Sepsis Event Evaluation Height, Weight, BMI Height: 5'6.00" Weight: 205lbs. 0.0oz. 92.588080co; 33.1 BMI Method:Stated Exam Exam Vital Signs Date Time Temp Pulse Resp B/P (MAP) Pulse Ox O2 Delivery O2 Flow Rate FiO2 10/02/18 08:11 97.6 64 20 114/71 (85) 97 Room Air 10/02/18 07:09 94 Room Air 10/02/18 03:50 98.4 83 18 142/80 (100) 97 Room Air 10/01/18 23:50 96.9 61 16 108/65 (79) 96 Room Air 10/01/18 21:05 Room Air 10/01/18 21:03 68 18 121/71 (88) 97 Room Air 10/01/18 20:19 97.8 72 16 125/65 (85) 96 Room Air 10/01/18 20:04 93 Room Air 10/01/18 15:54 97.3 83 16 133/75 (94) 96 Room Air 10/01/18 12:00 97.4 70 20 112/74 (87) 97 Room Air I & O 10/02/18 07:00 Intake Total 1250 ml Output Total 2650 ml Balance -1400 ml Height & Weight Height: 5'6.00" Weight: 205lbs. 0.0oz. 92.776762in; 33.1 BMI Method:Stated General Appearance: No Apparent Distress, WD/WN, Chronically ill HEENT: PERRL/EOMI, Normal ENT Inspection, Pharynx Normal, Moist Mucous Membranes Neck: Full Range of Motion, Normal Inspection, Non Tender, Supple Respiratory: Chest Non Tender, No Accessory Muscle Use, No Respiratory Distress, Crackles, Decreased Breath Sounds Cardiovascular: No Edema, No Gallop, No JVD, No Murmur, Irregularly Irregular Extremity: Normal Capillary Refill, Normal Inspection, Normal Range of Motion, Non Tender, No Calf Tenderness, No Pedal Edema Neurologic/Psychiatric: Alert, Oriented x3, No Motor/Sensory Deficits, Normal Mood/Affect, Motor Weakness (generalized all extremities 4/5) Skin: Normal Color, Warm/Dry Lymphatic: No Adenopathy Results Lab Laboratory Tests 7/2/19 06:00 Assessment/Plan Assessment/Plan Pulmonary hemorrhage -improved -Last hospitalization I check ANCA, Anti-Glomerular BM, and GENE - they were negative - echo shows EF 60-65% -monitor -prednisone taper Leukocytosis - probably secondary to prednisone -Monitor -repeat CXR DM -SSI may need to start Levemir BRIDGER -Out pt JUAN Don DO Oct 02, 2018 09:26
[2018-10-02] MEDS: ASPIRIN 81 MG CHEW (CHILDREN'S ASA) PO SCH (09:33)
[2018-10-02] MEDS: DILTIAZEM 300 MG (CARDIZEM CD) CAP PO SCH (09:33)
[2018-10-02] MEDS: DICLOFENAC 1% GEL 100 GM (VOLTAREN) TUBE TOP SCH ×4 (09:33→21:00)
[2018-10-02] MEDS: LORATADINE (CLARITIN) 10 MG TAB PO SCH (09:33)
[2018-10-02] MEDS: meTOprolol TARTRATE 50 MG (LOPRESSOR) TAB PO SCH ×2 (09:33→21:56)
[2018-10-02] MEDS: SENNA W/DOCUSATE (SENOKOT S) TABLET PO SCH ×2 (09:34→21:00)
--- NOTE | 2018-10-02 09:45 | PM&R Progress Note ---
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 Parsons who presents after a complex ICU stay which included intubation due to respiratory insufficiency due to recurrent pulmonary hemorrhage requiring airway protection and placed on treatment for hospital acquired pneumonia. Patient is not an anticoagulation candidate at this current time due to the recurrent hemorrhages. Patient is doing extremely well very weak and will require intensive rehabilitation in order to return home. Prior level of functioning was independent with ADLs and ambulation. He does have a history of inflammatory bowel disease of which he has a lot of diarrhea which is chronic. He denies any significant pain and he does have lower extremity edema we have initiated LUIS EDUARDO hose for compression therapy. His daughter from [facility] [place] is here visiting him. I checked meds and labs. Blood pressure has been mildly elevated at 160/77 but he is not having any more dysphagia as a complication from intubation and we will discontinue Head catheter and telemetry. Subjective/Events-last exam Having symptoms and signs of steroid myopathy considering the hip flexor weakness Having some emotional problems consistent with weaning of the steroids Putting zinc christa on his bottom because it is irritated Blood sugars reasonable at 166, 107, 192 Will have him bring his home melatonin and since he does not seem to like hours We will recheck for progress next week We will inquire with cardiology regarding restarting the Lasix for the edema Needs to have a bowel movement and will take medications for that Blood pressure 121/71 Dr. Parsons did see the patient and is addressing the sleep difficulty also Day pass does not seem to be an option due to the significant weakness he is having Crackles on lungs in bases are now resolved today Cognition seems to be decreased today and yesterday Checked meds and labs, will recheck labs in the morning Conferred with RN Reviewed therapy notes Dramatically improving and benefitting from intensive therapy and in patient rehab Review of Systems General: Fatigue Musculoskeletal: leg pain Neurological: Confusion Objective Exam Vital Signs Vital Signs Date Time Temp Pulse Resp B/P (MAP) Pulse Ox O2 Delivery O2 Flow Rate FiO2 10/02/18 08:32 Room Air 10/02/18 08:11 97.6 64 20 114/71 (85) 97 09/30/18 02:14 21 Capillary Refill : General Appearance: No Apparent Distress, WD/WN, Chronically ill HEENT: PERRL/EOMI, Normal ENT Inspection, Pharynx Normal, Moist Mucous Membranes Neck: Full Range of Motion, Normal Inspection, Non Tender, Supple Respiratory: Chest Non Tender, No Accessory Muscle Use, No Respiratory Distress, Crackles, Decreased Breath Sounds Cardiovascular: No Edema, No Gallop, No JVD, No Murmur, Irregularly Irregular Gastrointestinal: Normal Bowel Sounds, No Organomegaly, No Pulsatile Mass, Non Tender, Soft Back: Normal Inspection, No CVA Tenderness, No Vertebral Tenderness Extremity: Normal Capillary Refill, Normal Inspection, Normal Range of Motion, Non Tender, No Calf Tenderness, No Pedal Edema Neurologic/Psychiatric: Alert, Oriented x3, No Motor/Sensory Deficits, Normal Mood/Affect, Motor Weakness (diminished strength hip flexors and all extremities) Skin: Normal Color, Warm/Dry Lymphatic: No Adenopathy Results/Procedures Lab Patient resulted labs reviewed. FIM Transfers Therapy Code Descriptions/Definitions Functional [place] Measure: 0=Not Assessed/NA 4=Minimal Assistance 1=Total Assistance 5=Supervision or Setup 2=Maximal Assistance 6=Modified [place] 3=Moderate Assistance 7=Complete [place] Therapy Quality Codes: 6 Independent with activity with or without an assistive device 5 Patient requires set up or clean up by helper. Patient completes activity by themselves 4 Supervision or touching assist (CGA). [place] provide cues , steadying assist 3 The helper provides less than half the effort to complete the activity 2 The helper provides more than half the effort to complete the activity 1 Dependent. The helper does all the effort to complete an activity 7 Patient refused to complete or attempt activity 9 The patient did not perform the activity before the current illness or injury 88 Not attempted due to Medical conditions or safety concerns Transfers (B, C, W/C) (FIM): 2 Scootin Rollin Roll Left to Right (QC): 2 Supine to/from Sit: 3 Sit to/from Stand: 2 Sit to Lying (QC): 2 Sit to Stand (QC): 1 Chair/Xcx-hz-Bnnip Xfer(QC): 1 Bed to/from Chair: 2 Car Transfer (QC): 88 (Dependent on sit<->stand lift and poor trunk control currently) Gait Training Does the Patient Walk?: No and Walking Goal IS indicated Gait (FIM): 0 Distance (FIM): 0=does not occure Walk 10 feet (QC): 88 Walk 50 ft with 2 Turns(QC): 88 Walk 150 ft (QC): 88 Walking 10ft/uneven surface-QC: 88 Wheelchair Training Does the Pt Use a Wheelchair?: Yes Wheelchair (FIM): 5 Wheelchair Distance: 0=does not occure Distance: 150'x2 Wheelchair Level of Assist: 5 Wheel 50 ft with 2 turns (QC): 3 Wheel 150 ft (QC): 3 Type of Wheelchair: Manual Stair Training Stairs (FIM): 0 1 Step (curb) (QC): 88 4 Steps (QC): 88 12 Steps (QC): 88 Balance Picking up an Object (QC): 88 Mental Status/Objective Comprehension: 7 Expression: 7 Social Interaction: 7 Problem Solvin Memory: 7 ADL-Treatment Feedin Eating (QC): 5 Groomin Oral Hygiene (QC): 2 Bathin (Using shower chair with cutout and hand held shower) Bathing Location: L Arm, R Arm, L Upper Leg, R Upper Leg, Chest, Abdomen, Perineal Area Shower/Bathe Self (QC): 3 Upper Extremity Dressin Upper Body Dressing (QC): 2 Lower Extremity Dressin Lower Body Dressing (QC): 2 On/Off Footwear (QC): 2 Toiletin (Pt requires assist x2 to manipulate clothing and cleanse self.) Toileting Hygiene (QC): 1 Toilet/Commode Transfer: 1 Toilet Transfer (QC): 1 Shower: 1 Assessment/Plan Assessment and Plan Assess & Plan/Chief Complaint Assessment: 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 Plan: Monitor labs Weaned steroids off so hopefully the steroid myopathy is a factor O2 Nebs BP management IRF therapy protocols Melatonin home supply Monitor crackles on bases for recurrences (1) Myopathy (2) BRIDGER treated with BiPAP (3) CAD S/P percutaneous coronary angioplasty Onset Date: 12/31/2013 (4) Pacemaker (5) Asthma (6) Hx of CABG (7) Leukocytosis (8) Weakness generalized (9) Anemia (10) COPD (chronic obstructive pulmonary disease) (11) Hypoxemia (12) Edema (13) Ulcerative colitis (14) Fecal incontinence (15) Contraindication to anticoagulation therapy (16) Pulmonary hemorrhage (17) Acute insomnia (18) Leukocytosis KOBI ESTEBAN DO Oct 02, 2018 09:45
--- NOTE | 2018-10-02 11:56 | Physical Therapy Daily Note ---
PT Daily Note-Current Subjective Agreeable to PT. During PT session, pt expresses frustration regarding not being able to sleep well and verbalized that he has questions about his meds, his bed and wake time and his progress. Post treatment, pt reported he felt better after discussing his concerns and would await answers from this therapist after the Sunday meeting. Mental Status Patient Orientation: Person, Place, Time, Situation Pt does not demonstrate specific confusion or altered orientation but he does seem to have some difficulty problem solving or understanding the rationale for the therapy treatment or med regimen. Once explained, he verbalizes understanding but later will go back to his thought process. Transfers Therapy Code Descriptions/Definitions Functional [place] Measure: 0=Not Assessed/NA 4=Minimal Assistance 1=Total Assistance 5=Supervision or Setup 2=Maximal Assistance 6=Modified [place] 3=Moderate Assistance 7=Complete [place] Therapy Quality Codes: 6 Independent with activity with or without an assistive device 5 Patient requires set up or clean up by helper. Patient completes activity by themselves 4 Supervision or touching assist (CGA). [place] provide cues , steadying assist 3 The helper provides less than half the effort to complete the activity 2 The helper provides more than half the effort to complete the activity 1 Dependent. The helper does all the effort to complete an activity 7 Patient refused to complete or attempt activity 9 The patient did not perform the activity before the current illness or injury 88 Not attempted due to Medical conditions or safety concerns Transfers (B, C, W/C) (FIM): 1 Scootin Rollin (max assist to fully roll and cues 75% of the time to sequence. ) Roll Left to Right (QC): 2 Supine to/from Sit: 2 Sit to/from Stand: 1 (sit to stand lift) Sit to Lying (QC): 2 Worked on bed mobility of sit to from supine x 3 reps with work on sequencing, correct limb use and placement and encouraging pt to perform the task. Pt continues to be at a max assist due to need for assist with both legs as well as his trunk. He needs heavy cues to sequence. Worked on rolling to his right side and then push up to sit; then lying down on his right side and lifting legs into bed. Also addressed positioning in bed for comfort and positional change. Attempted sit to stand x 3 in // bars, pt unable to come to a full stand. Transistioned to sit to stand with the lift and worked on GS/hip extension exercises while in a partial stand. Weight Bearing Right Lower Extremity: Right Full Weight Bearing Left Lower Extremity: Left Full Weight Bearing Exercises Supine Ex: Bridging, Ankle pumps, Quad Set, Heel Slides, Hip abd/add Supine Reps: 10 (2 sets; worked on these specific exercises to promote improved bed mobiltiy and ability to get up/down and position in bed. ) Treatments Functional LE strength, bed mobilty, transfers and education on the purpose of each exercise and treatment provided. Assessment Current Status: Fair Progress (pt improved bed mobility during course of treatment) pt seems to have some difficulty today reasoning the purpose of bed mobilty training and the technique of LE ther ex to improve bed mobiltiy and transfers. He expressed frustration but as the treatment continued, seemed to better understand. His ability to mobilize in bed did improve with treatment and his sequencing improved. Continues to be very weak in his LE that prohibits his ability to come to a full stand. PT Short Term Goals Short Term Goals Time Frame: Oct 12, 2018 Transfers (B,C,W/C) (FIM): 4 Wheelchair Distance: 150'x2 PT Office Cashier Goals Residential Goals PT Office Cashier Goals Time Frame: Oct 26, 2018 Transfers (B,C,W/C) (FIM): 6 Sit to Lying (QC): 6 Lying-Sitting on Side/Bed(QC): 6 Sit to Stand (QC): 6 Rollin Roll Left to Right (QC): 6 Chair/Vlu-dy-Gqhuj Xfer(QC): 6 Car Transfer (QC): 6 Does the Patient Walk: No and Walking Goal IS indicated Gait (FIM): 6 Gait distance (FIM): 3=150 ft Distance: 150 Walk 10 feet (QC): 6 Walk 10ft-Uneven Surface(QC): 6 Walk 50ft with 2 Turns (QC): 6 Walk 150 ft (QC): 6 Gait Level of Assist: 6 Gait Assistive Device: FWW Stairs (FIM): 6 # of Steps: 12 1 Step (curb) (QC): 6 4 Steps (QC): 6 12 Steps (QC): 6 Stairs Level Of Assist: 6 Picking up an Object (QC): 5 PT Plan Problem List Problem List: Activity Tolerance, Functional Strength, Safety, Balance, Gait, Transfer, Bed Mobility Treatment/Plan Treatment Plan: Continue Plan of Care Treatment Plan: Bed Mobility, Concurrent Therapy, Education, Functional Activity [place], Functional Strength, Group Therapy, Gait, Safety, Therapeutic Exercise, Transfers Treatment Duration: Oct 26, 2018 Frequency: At least 5 of 7 days/Wk (IRF) Estimated Hrs Per Day: 1.5 hours per day Patient and/or Family Agrees t: Yes Safety Risks/Education Patient Education: Transfer Techniques, Disease Process, Safety Issues Teaching Recipient: Patient Teaching Methods: Discussion Response to Teaching: Reinforcement Needed Time/GCodes Time In: 945 Time Out: 1100 Total Billed Treatment Time: 75 Total Billed Treatment visit EX 30 FA 45 NERY DALEY PT Oct 02, 2018 11:56
--- NOTE | 2018-10-02 12:07 | Occupational Ther Daily Note ---
OT Current Status-Daily Note Subjective No pain reported. Appearance Pt. is up in wheelchair. Agrees to shower. States that he did not sleep well last night. Mental Status/Objective Patient Orientation: Person, Place Therapy Code Descriptions/Definitions Functional [place] Measure: 0=Not Assessed/NA 4=Minimal Assistance 1=Total Assistance 5=Supervision or Setup 2=Maximal Assistance 6=Modified [place] 3=Moderate Assistance 7=Complete [place] Attachments: IV ADL-Treatment Therapy Code Descriptions/Definitions Functional [place] Measure: 0=Not Assessed/NA 4=Minimal Assistance 1=Total Assistance 5=Supervision or Setup 2=Maximal Assistance 6=Modified [place] 3=Moderate Assistance 7=Complete [place] Therapy Quality Codes: 6 Independent with activity with or without an assistive device 5 Patient requires set up or clean up by helper. Patient completes activity by themselves 4 Supervision or touching assist (CGA). [place] provide cues , steadying assist 3 The helper provides less than half the effort to complete the activity 2 The helper provides more than half the effort to complete the activity 1 Dependent. The helper does all the effort to complete an activity 7 Patient refused to complete or attempt activity 9 The patient did not perform the activity before the current illness or injury 88 Not attempted due to Medical conditions or safety concerns Grooming (FIM): 5 Oral Hygiene (QC): 4 Bathing (FIM): 5 (SBA with LH in shower on rolling shower chair.) Shower/Bathe Self (QC): 4 Upper Body (FIM): 5 Upper Body Dressing (QC): 4 Lower Body Dressing (FIM): 2 (Pt. able to thread shorts over feet with AE and pull to thighs. Dependent to pull up while on sit-stand. Max assist with donning socks and shoes using equipment due to angle of feet on sit-stand.) Lower Body Dressing (QC): 2 On/Off Footwear (QC): 2 Transfers (B, C, W/C) (FIM): 1 (Sit-stand lift.) Shower Transfer(FIM): 1 Other Treatment After ADLs, pt. was transferred via sit-stand lift back to wheelchair. Pt. is able to self propel wheelchair to therapy gym. Completed bilateral UE exercises with 2 lb. dumbbells, x 5 exercises x 10 reps each to his tolerance level. Pt. was educated in wheelchair push ups for pressure relief. Unable to push self up from chair, but was able to lean side to side in wheelchair for relief. Completed ball kicks and ball toss for increased ROM in LE, and overall endurance. Pt. up in gym after OT session waiting for PT. All needs were met. Education OT Patient Education: Correct positioning, Exercise program, Modified ADL techniques, Progress toward Goal/Update tx plan, Purpose of tx/functional activities, Reviewed precautions, Rehab process, Transfer techniques Teaching Recipient: Patient Teaching Methods: Demonstration, Discussion Response to Teaching: Verbalize Understanding, Return Demonstration OT Short Term Goals Short Term Goals Time Frame: Oct 04, 2018 Grooming(FIM): 4 Bathing(FIM): 3 Upper Body Dressing(FIM): 4 Lower Body Dressing(FIM): 3 Toileting(FIM): 3 Transfers (B,C,W/C) (FIM): 4 Toilet/Commode Transfer(FIM): 3 Additional Short Term Goals: 1-Demonstrate ADL Tasks, 2-Verbalize Und erstanding, 3-ImproveStrength/Gilbert 1=Demonstrate adherence to instructed precautions during ADL tasks. 2=Patient will verbalize/demonstrate understanding of assistive devices/modifications for ADL. 3=Patient will improve strength/tolerance for activity to enable patient to perform ADL's. OT Intermediate Goals Kiln Remover Goals Time Frame: Oct 25, 2018 Eating (FIM): 6 Eating (QC): 6 Groomin Oral Hygiene (QC): 6 Bathing(FIM): 5 Shower/Bathe Self (QC): 5 Upper Body Dressing(FIM): 5 Upper Body Dressing (QC): 5 Lower Body Dressing(FIM): 5 Lower Body Dressing (QC): 5 On/Off Footwear (QC): 5 Toileting(FIM): 5 Toileting Hygiene (QC): 5 Toilet/Commode Transfer(FIM): 5 Toilet/Commode Transfer (QC): 5 Shower Transfer(FIM): 5 Additional Goals: 1-Demonstrate ADL Tasks, 2-Verbalize Understanding, 3- ImproveStrength/Gilbert 1=Demonstrate adherence to instructed precautions during ADL tasks. 2=Patient will verbalize/demonstrate understanding of assistive devices/modifications for ADL. 3=Patient will improve strength/tolerance for activity to enable patient to perform ADL's. OT Education/Plan Problem List/Assessment Assessment: Decreased Activ Tolerance, Decreased UE Strength, Dependent Transfers, Edema, Impaired Bed Mobility, Impaired Funct Balance, Impaired I ADL's, Impaired Self-Care Skills Pt demonstrates decreased mobility, strength, activity tolerance, and ADL functioning. Pt to benefit from skilled OT intervention for ADL training, transfers, strengthening, and home safety education to increase level of independence and allow safe discharge home. Discharge Recommendations Plan/Recommendations: Continue POC Therapy D/C Recommendations: Home w/ Family Support, Occupational Therapy Home Care, Scheduled Assistance Comment Equipment needs to be determined. Treatment Plan/Plan of Care Treatment,Training & Education: Yes Patient would benefit from OT for education, treatment and training to promote independence in ADL's, mobility, safety and/or upper extremity function for ADL's. Plan of Care: ADL Retraining, Functional Mobility, Group Exercise/Act as Ind, UE Funct Exercise/Act Treatment Duration: Oct 25, 2018 Frequency: At least 5 of 7 days/Wk (IRF) Estimated Hrs Per Day: 1.5 hours per day Agreement: Yes Rehab Potential: Fair Time/GCodes Start Time: 08:15 Stop Time: 09:45 Total Time Billed (hr/min): 90 Billed Treatment Time 1, ADL x 60minutes, FA x 30minutes ANURAG HENRIQUEZ OT Oct 02, 2018 12:07
--- NOTE | 2018-10-02 14:43 | NUR ---
SECURITY INSTALLATION TECHNICIAN met with patient to review team conference summary. Patient requires a sit to stand lift for transfers, is unable to complete full standing position, and requires max assist for lower extremity dressing, team has recommended patient be reevaluated at next team conference on 710. Team has also recommended patient not proceed with day pass originally scheduled for tomorrow as patient is not functioning well enough to safely complete this. Patient is understanding of canceled day pass and agreeable to reevaluation. Patient expresses no questions or concerns at this time. SECURITY INSTALLATION TECHNICIAN will continue to follow.
--- NOTE | 2018-10-02 16:01 | Physical Therapy Daily Note ---
PT Daily Note-Current Subjective Pt has questions regarding his medications. Pt asks again why exercises without using the leg forest management teacher to lift his leg are better than ones with the leg forest management teacher. Mental Status Patient Orientation: Person, Confused (or decreased ability to problem solve. ), Place, Time, Situation Transfers Therapy Code Descriptions/Definitions Functional [place] Measure: 0=Not Assessed/NA 4=Minimal Assistance 1=Total Assistance 5=Supervision or Setup 2=Maximal Assistance 6=Modified [place] 3=Moderate Assistance 7=Complete [place] Therapy Quality Codes: 6 Independent with activity with or without an assistive device 5 Patient requires set up or clean up by helper. Patient completes activity by themselves 4 Supervision or touching assist (CGA). [place] provide cues , steadying assist 3 The helper provides less than half the effort to complete the activity 2 The helper provides more than half the effort to complete the activity 1 Dependent. The helper does all the effort to complete an activity 7 Patient refused to complete or attempt activity 9 The patient did not perform the activity before the current illness or injury 88 Not attempted due to Medical conditions or safety concerns Weight Bearing Right Lower Extremity: Right Full Weight Bearing Left Lower Extremity: Left Full Weight Bearing Treatments Treatment consisted of conversation with patient and with functional education and demonstration of transfers sup to from sit. In addisiton, reviewed ther ex with explanation of purpose of active exercise versus active assistive exercise. Spouse verbalized understanding but patient continues to have some difficulty understanding of the purpose of active mobiltiy versus active assistive. Assessment Patient and spouse participatory with session and interactive with discussion and treatment. PT Short Term Goals Short Term Goals Time Frame: Oct 12, 2018 Transfers (B,C,W/C) (FIM): 4 Wheelchair Distance: 150'x2 PT Waterproofer Goals Waterproofer Goals PT Waterproofer Goals Time Frame: Oct 26, 2018 Transfers (B,C,W/C) (FIM): 6 Sit to Lying (QC): 6 Lying-Sitting on Side/Bed(QC): 6 Sit to Stand (QC): 6 Rollin (max assist to fully roll and cues 75% of the time to sequence. ) Roll Left to Right (QC): 6 Chair/Znt-kc-Fsgli Xfer(QC): 6 Car Transfer (QC): 6 Does the Patient Walk: No and Walking Goal IS indicated Gait (FIM): 6 Gait distance (FIM): 3=150 ft Distance: 150 Walk 10 feet (QC): 6 Walk 10ft-Uneven Surface(QC): 6 Walk 50ft with 2 Turns (QC): 6 Walk 150 ft (QC): 6 Gait Level of Assist: 6 Gait Assistive Device: FWW Stairs (FIM): 6 # of Steps: 12 1 Step (curb) (QC): 6 4 Steps (QC): 6 12 Steps (QC): 6 Stairs Level Of Assist: 6 Picking up an Object (QC): 5 PT Plan Problem List Problem List: Activity Tolerance, Functional Strength, Safety Treatment/Plan Treatment Plan: Continue Plan of Care Treatment Plan: Bed Mobility, Concurrent Therapy, Education, Functional Activity [place], Functional Strength, Group Therapy, Gait, Safety, Therapeutic Exercise, Transfers Treatment Duration: Oct 26, 2018 Frequency: At least 5 of 7 days/Wk (IRF) Estimated Hrs Per Day: 1.5 hours per day Patient and/or Family Agrees t: Yes Safety Risks/Education Patient Education: Safety Issues Discharge Recommendations Plan Nursing to visit with patient to discuss his questions regarding medications. Time/GCodes Time In: 1400 Time Out: 1425 Total Billed Treatment Time: 25 Total Billed Treatment visit FA 25 NERY DALEY PT Oct 02, 2018 16:01
--- NOTE | 2018-10-02 16:49 | NUR ---
Spoke w Dr. Avila re: Lasix, rec'd orders to re-start, & added Potassium.
[2018-10-02] MEDS: TAMSULOSIN 0.4 MG (FLOMAX) CAP PO SCH (17:11)
[2018-10-02] MEDS: LOSARTAN 25 MG (COZAAR) TAB PO SCH (17:11)
[2018-10-02 17:24] VITALS: BP 124/71
--- NOTE | 2018-10-02 18:52 | NUR ---
Pt & request Lasix to be scheduled at 0600 in the morning, states, "he's up early anyway, & that way he'll have it out of his system by the time therapy comes to work w him.'
--- NOTE | 2018-10-02 19:28 | NUR ---
bedside report received from KIRILL CASAREZ, assume care of pt
--- NOTE | 2018-10-02 20:10 | Progress Note ---
Subjective Date Seen by a Provider: Oct 02, 2018 Time Seen by a Provider: 09:00 Subjective/Events-last exam PT REPORTS T HAT HE IS FEELING MUCH IMPROVED HE STATES THAT HIS SHORTNESS OF BREATH HAS IMPROVED QUITE A BIT. HE STATES THAT HE HAS ABDOMINAL DISCOMFORT BUT IT IS STABLE. THERAPY STATES THAT HIS STRENGTH IS QUITE LOW BUT IT HAS IMPROVED FROM ADMISSION, HE WAS ABLE TO STAND TODAY FOR A FEW MINUTES ON HIS OWN. Review of Systems General: Fatigue HEENT: No Head Aches Pulmonary: Dyspnea, Cough Cardiovascular: No: Chest Pain, Palpitations Gastrointestinal: No: Nausea, Abdominal Pain Genitourinary: No Dysuria; Frequency Musculoskeletal: back pain, leg pain Neurological: Weakness; No: Confusion Objective Exam Last Set of Vital Signs Vital Signs Date Time Temp Pulse Resp B/P (MAP) Pulse Ox O2 Delivery O2 Flow Rate FiO2 10/02/18 17:24 97.8 61 20 124/71 (88) 95 Room Air 09/30/18 02:14 21 Capillary Refill : I&O Intake and Output 10/01/18 23:59 Intake Total 1300 ml Output Total 2900 ml Balance -1600 ml Intake Oral 1300 ml Output Urine Total 2900 ml General: Alert, Oriented X3, Cooperative, No Acute Distress HEENT: Atraumatic, PERRLA Neck: Supple Lungs: Clear to Auscultation (WITH DECREASED AIR MOVEMENT IN BASES) Heart: Regular Rate Abdomen: Normal Bowel Sounds, Soft, No Tenderness Extremities: No Cyanosis, Other (+ EDEMA) Neuro: Cranial Nerves 3-12 NL Psych/Mental Status: Mental Status NL, Mood NL Results Lab Laboratory Tests 10/02/18 00:05: Glucometer 166H 10/02/18 05:25: Glucometer 107 10/02/18 11:27: Glucometer 192H 10/02/18 17:29: Glucometer 198H Assessment/Plan Assessment/Plan Assess & Plan/Chief Complaint PULMONARY HEMORRHAGE PNEUMONIA ATRIAL FIBRILLATION HYPERTENSION HYPERLIPIDEMIA ULCERATIVE COLITIS GENERALIZED WEAKNESS INSOMNIA CHRONIC ANTICOAGULATION USE BPH CRITICAL CARE MYOPATHY EMPHYSEMA PULMONARY HEMORRHAGE WITH PNEUMONIA - DISCUSSED WITH THE PATIENT AND HIS - WE ARE AT THE POINT THAT WE CANNOT CONTINUE TO KEEP HIM ON ELIQUIS - DR. JUNIOR IS IN AGREEMENT WITH THIS AND HE HAS RECOMMENDED AT LEAST A MONTH OFF OF THE ASPIRIN. PT IS STATUS POST INTUBATION AND EXTUBATION OVER THE WEEKEND AND EARLY THIS WEEK. HE HAS A SORE THROAT AND IS UNABLE TO DRINK OR EAT VERY MUCH. - IMPROVED AFTER STARTING ON CEPACOL LOZENGES YESTERDAY. ATRIAL FIBRILLATION - STATED ABOVE - HOLD ASPIRIN AND ELIQUIS - DEFER OTHER TREATMENT TO DR. 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 HYPERTENSION - CONTINUE WITH METOPROLOL ORALLY HYPERLIPIDEMIA - STABLE - HOLD STATIN FOR NOW DUE TO HIS CRITICAL ILLNESS MYOPATHY ULCERATIVE COLITIS - RESTARTED LIALDA GENERALIZED WEAKNESS -PT WAS ADMITTED TO INPT REHAB FOR THERAPY FOR STRENGTHENING. EMPHYSEMA - DX ON HIS CT SCAN - HE WILL NEED CONTINUED TREATMENT OF HIS ILLNESS WITH DR. HESS AN OUTPATIENT. INSOMNIA - RESTARTED HIS HOME MELATONIN DOSING. CHRONIC ANTICOAGULATION USE - STOPPED. BPH - RESTARTED TAMSULOSIN. CONTINUE WITH INPT REHAB Clinical Quality Measures DVT/VTE Risk/Contraindication: Risk Factor Score Per Nursin RFS Level Per Nursing on Admit: 4+=Very High CODEY BARILLAS MD Oct 02, 2018 20:10
--- NOTE | 2018-10-02 21:00 | NUR ---
at window watching fireworks with family in pt w/c
[2018-10-02 21:08] VITALS: BP 113/72
--- NOTE | 2018-10-02 21:28 | NUR ---
assessments & interventions completed, see assessments & interventions
--- NOTE | 2018-10-02 21:45 | NUR ---
back to bed with sit to stand & 2 people assist
--- NOTE | 2018-10-02 21:48 | NUR ---
refused Senokot, states had BM this evening cream to sacral area
[2018-10-02] MEDS: MESALAMINE 1.2 GM PO SCH (21:56)
[2018-10-02] MEDS: MELATONIN 3 MG TABLET PO PRN (21:56)
[2018-10-02 23:41] VITALS: BP 132/74
[2018-10-03 03:56] VITALS: BP 137/80
[2018-10-03 04:59] LABS: BASOPHILS % (AUTO) 0 % (0-10); EOSINOPHILS % (AUTO) 0 % (0-10); HEMATOCRIT 35 % (40-54); HEMOGLOBIN 11.8 G/DL (13.3-17.7); LYMPHOCYTES # (AUTO) 1.4 X 10^3 (1.0-4.0); LYMPHOCYTES % (AUTO) 11 % (12-44); MEAN CORPUSCULAR HEMOGLOBIN 31 PG (25-34); MEAN CORPUSCULAR HGB CONC 33 G/DL (32-36); MEAN CORPUSCULAR VOLUME 92 FL (80-99); MEAN PLATELET VOLUME 9.6 FL (7.4-10.4); MONOCYTES # (AUTO) 1.2 X 10^3 (0.0-1.0); MONOCYTES % (AUTO) 10 % (0-12); NEUTROPHILS # (AUTO) 10.3 X 10^3 (1.8-7.8); NEUTROPHILS % (AUTO) 79 % (42-75); PLATELET COUNT 165 10^3/uL (130-400); RED CELL DISTRIBUTION WIDTH 15.4 % (10.0-14.5)
[2018-10-03 05:59] LABS: ALANINE AMINOTRANSFERASE 54 U/L (0-55); ALBUMIN 2.9 GM/DL (3.2-4.5); ALKALINE PHOSPHATASE 80 U/L (40-136); BILIRUBIN,TOTAL 0.6 MG/DL (0.1-1.0); BUN/CREATININE RATIO 26; CALCIUM 8.3 MG/DL (8.5-10.1); CARBON DIOXIDE 28 MMOL/L (21-32); CHLORIDE 103 MMOL/L (98-107); CREATININE SERUM 0.74 MG/DL (0.60-1.30); GFR ESTIMATED > 60; GLUCOSE 117 MG/DL (70-105); POTASSIUM 3.6 MMOL/L (3.6-5.0); SODIUM 138 MMOL/L (135-145); TOTAL PROTEIN 4.8 GM/DL (6.4-8.2)
[2018-10-03] MEDS: inSUlin ASPART (NovoLOG) 1 UNIT/0.01 ML (CHARGE PER UNIT) SC SCH ×4 (06:00→18:10)
[2018-10-03] MEDS: FUROSEMIDE 40 MG (LASIX) TAB PO SCH (06:28)
[2018-10-03] MEDS: KCL 10 MEQ TAB (MICRO K) PO SCH (06:29)
[2018-10-03] MEDS: LACTOBACILLUS ACIDOPHILUS (PROBIOTIC) CAPSULE PO SCH ×2 (06:29→18:09)
[2018-10-03] MEDS: PANTOPRAZOLE 40 MG (PROTONIX) TAB PO SCH (06:29)
[2018-10-03] MEDS: RT-ALBUTEROL/IPRATROPIUM 3 ML (DUONEB) VIAL INH SCH ×2 (06:59→20:05)
--- NOTE | 2018-10-03 07:10 | NUR ---
bedside report given to PANDA CASAREZ
[2018-10-03 08:16] VITALS: BP 105/66
[2018-10-03] MEDS: meTOprolol TARTRATE 50 MG (LOPRESSOR) TAB PO SCH ×2 (08:18→19:58)
[2018-10-03] MEDS: SENNA W/DOCUSATE (SENOKOT S) TABLET PO SCH ×2 (08:18→19:59)
[2018-10-03] MEDS: DILTIAZEM 300 MG (CARDIZEM CD) CAP PO SCH (08:18)
[2018-10-03] MEDS: LORATADINE (CLARITIN) 10 MG TAB PO SCH (08:18)
[2018-10-03] MEDS: ASPIRIN 81 MG CHEW (CHILDREN'S ASA) PO SCH (08:18)
[2018-10-03] MEDS: DICLOFENAC 1% GEL 100 GM (VOLTAREN) TUBE TOP SCH ×4 (08:19→20:05)
[2018-10-03] MEDS ORDERED: FUROSEMIDE 40 MG (LASIX) TAB PO SCH (09:00)
--- NOTE | 2018-10-03 10:57 | ST Cognitive Linguistic Eval ---
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 Onset Date: Sep 15, 2018 Therapy Diagnosis Therapy Diagnosis: Cognitive-communication Precautions Precautions/Isolations: Fall Prevention, Standard Precautions, Pressure Ulcer Referral Referring Physician: Dr. Saravia Medical History Pertinent Medical History: CABG, CAD, COPD, Heart Failure, HTN, ND Reviewed History: Yes Social History Current Living Status: Spouse Speech PLF-Current Status Prior Level of Function The patient lived at home with his and was independent with his daily needs. Language Eval: Auditory Comprehends Simple Yes/No Ques: Functional Indent/Objects Multiple Jaimes: Functional Ident/Pics in Multiple Jaimes: Functional Follows 1-Step Commands: Functional Follows Complex Directions: Moderate Follows General Conversations: Functional Language Eval: Verbal Language Completes Spontaneous Greeting: Functional Produces Auto, Serial Info: Functional Imitates Simple Words/Phrases: Functional Word Finding: Mild Requests Basic Needs: Mild Expresses Complex Ideas: Moderate Objective Cognitive Domain Attention: WNL Memory: Moderate Problem Solving: Moderate Executive Functions: Moderate Visuospatial Skills: Mild Composite Severity Rating: Moderate Clock Drawing Severity Rating: Mild Objective Formal/Standardized Tests [facility] Mental Status ([facility]) Results Patient scored 18/30 which places 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 He has been hospitalized twice in the past month due to complications with his medical status. The patient was initially cognitively well, however the rehab team reported concerns within the past few days that his cognitive status has declined. The SLUMS scores indicates this to be so as well. He will be receiving skilled ST for his decreased cognitive status with focus on safety and independence. Communication/Social Cognition Comprehension: 6 Expression: 5 Social Interaction: 6 Problem Solvin Memory: 3 Speech Patient Assess Expression of Ideas/Wants: Exhibits (3) Understanding Verbal Content: Usually Understands (3) Brief Interview-Mental Status: Yes Temporal Orientation: Year: Correct (3) Temporal Orientation: Month: Accurate within 5 days(2) Temporal Orientation: Day: Correct (1) Recall : Wear to say "Sock": Yes,after cueing (1) Recall : Color: No, could not recall (0) Recall : Bed: No, could not recall (0) Memory/Recall Ability: Current season, Location of own room, Staff names and faces, That he or she is in a hsp/hsp unit Speech Short Term Goals Short Term Goals Short Term Goals 1) The patient will complete memory tasks at 80% or greater with minimal verbal cues. 2) The patient will complete problem solving tasks at 80% or greater with minimal verbal cues. 3) The patient will complete safety awareness tasks at 80% or greater with minimal verbal cues. Speech Political Organizer Goals Political Organizer Goals The patient will increase cognitive skills for safety and independence. Speech-Plan Patient/Family Goals Patient/Family Goals: The patient plans on returning home with his post rehab. Treatment Plan Speech Therapy Treatment Plan: Continue Plan of Care The patient will receive skilled cognitive therapy. Treatment Duration: Oct 11, 2018 Frequency: 4 times per week Estimated Hrs Per Day: .5 hour per day Rehab Potential: Fair Barriers to Learning: Cognitive deficits Pt/Family Agrees to Plan: Yes Safety Risks/Education Teaching Recipient: Patient Teaching Methods: Discussion Response to Teaching: Verbalize Understanding Education Topics Provided: Safety within his room Time Speech Therapy Time In: 09:30 Speech Therapy Time Out: 09:45 Total Billed Time: 15 Billed Treatment Time 1, SPSNDCOMP ARI Costello Oct 03, 2018 10:56
--- NOTE | 2018-10-03 11:20 | Occupational Ther Daily Note ---
OT Current Status-Daily Note Subjective Saw pt 2 separate times this AM:[id number] and [id number]. Pt agrees to therapy. 1st visit pt was fatigued and requested to transfer back to bed. 2nd treatment pt completed UE exercises in bed and stated that he was feeling more energized. Mental Status/Objective Patient Orientation: Person, Place, Time, Situation Therapy Code Descriptions/Definitions Functional [place] Measure: 0=Not Assessed/NA 4=Minimal Assistance 1=Total Assistance 5=Supervision or Setup 2=Maximal Assistance 6=Modified [place] 3=Moderate Assistance 7=Complete [place] Attachments: IV ADL-Treatment Pt able to propel and maneuver w/c around room for optimal placement prior to transferring with sit to stand. Pt was able to control upper body for good placement of transfer strap and use UE's to stabilize core with transfer. EOB sitting without assistance. Assist x2 for scooting up in bed. After therapy, pt lying in bed with call light/phone in reach. RICE CLEANING MACHINE TENDER took over care all needs met in room. Therapy Code Descriptions/Definitions Functional [place] Measure: 0=Not Assessed/NA 4=Minimal Assistance 1=Total Assistance 5=Supervision or Setup 2=Maximal Assistance 6=Modified [place] 3=Moderate Assistance 7=Complete [place] Therapy Quality Codes: 6 Independent with activity with or without an assistive device 5 Patient requires set up or clean up by helper. Patient completes activity by themselves 4 Supervision or touching assist (CGA). [place] provide cues , steadying assist 3 The helper provides less than half the effort to complete the activity 2 The helper provides more than half the effort to complete the activity 1 Dependent. The helper does all the effort to complete an activity 7 Patient refused to complete or attempt activity 9 The patient did not perform the activity before the current illness or injury 88 Not attempted due to Medical conditions or safety concerns Other Treatment 2nd treatment. Using 2# hand weights pt able to complete 5 UE exercises to increase strength, activity tolerance for daily functional tasks. 5 exercises in rotations, 3 sets 10 reps each. After therapy, pt lying in bed with call light/phone in reach. All needs met in room. OT Short Term Goals Short Term Goals Time Frame: Oct 04, 2018 Grooming(FIM): 4 Bathing(FIM): 3 Upper Body Dressing(FIM): 4 Lower Body Dressing(FIM): 3 Toileting(FIM): 3 Transfers (B,C,W/C) (FIM): 4 Toilet/Commode Transfer(FIM): 3 Additional Short Term Goals: 1-Demonstrate ADL Tasks, 2-Verbalize Understanding, 3-ImproveStrength/Gilbert 1=Demonstrate adherence to instructed precautions during ADL tasks. 2=Patient will verbalize/demonstrate understanding of assistive devices/modifications for ADL. 3=Patient will improve strength/tolerance for activity to enable patient to perform ADL's. OT Er Registrar Goals Er Registrar Goals Time Frame: Oct 25, 2018 Eating (FIM): 6 Eating (QC): 6 Groomin Oral Hygiene (QC): 6 Bathing(FIM): 5 Shower/Bathe Self (QC): 5 Upper Body Dressing(FIM): 5 Upper Body Dressing (QC): 5 Lower Body Dressing(FIM): 5 Lower Body Dressing (QC): 5 On/Off Footwear (QC): 5 Toileting(FIM): 5 Toileting Hygiene (QC): 5 Toilet/Commode Transfer(FIM): 5 Toilet/Commode Transfer (QC): 5 Shower Transfer(FIM): 5 Additional Goals: 1-Demonstrate ADL Tasks, 2-Verbalize Understanding, 3-ImproveStrength/Gilbert 1=Demonstrate adherence to instructed precautions during ADL tasks. 2=Patient will verbalize/demonstrate understanding of assistive devices/modifications for ADL. 3=Patient will improve strength/tolerance for activity to enable patient to perform ADL's. OT Education/Plan Problem List/Assessment Assessment: Decreased Activ Tolerance, Decreased UE Strength, Dependent Transfers, Impaired Coordination, Impaired Funct Balance, Impaired Self-Care Skills Pt demonstrates decreased mobility, strength, activity tolerance, and ADL functioning. Pt to benefit from skilled OT intervention for ADL training, transfers, strengthening, and home safety education to increase level of independence and allow safe discharge home. Discharge Recommendations Plan/Recommendations: Continue POC Treatment Plan/Plan of Care Patient would benefit from OT for education, treatment and training to promote independence in ADL's, mobility, safety and/or upper extremity function for ADL's. Plan of Care: ADL Retraining, Functional Mobility, Group Exercise/Act as Ind, UE Funct Exercise/Act Treatment Duration: Oct 25, 2018 Frequency: At least 5 of 7 days/Wk (IRF) Estimated Hrs Per Day: 1.5 hours per day Agreement: Yes Rehab Potential: Fair Time/GCodes Start Time: 09:00 ([id number]) Stop Time: 11:00 ([id number]) Total Time Billed (hr/min): 60 Billed Treatment Time 1 visit-ADL 2 (30 min) 1 visit-EX 2 (30 min) NERY ADAIR Oct 03, 2018 11:20
--- NOTE | 2018-10-03 11:50 | PM&R Progress Note ---
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 Parsons who presents after a complex ICU stay which included intubation due to respiratory insufficiency due to recurrent pulmonary hemorrhage requiring airway protection and placed on treatment for hospital acquired pneumonia. Patient is not an anticoagulation candidate at this current time due to the recurrent hemorrhages. Patient is doing extremely well very weak and will require intensive rehabilitation in order to return home. Prior level of functioning was independent with ADLs and ambulation. He does have a history of inflammatory bowel disease of which he has a lot of diarrhea which is chronic. He denies any significant pain and he does have lower extremity edema we have initiated LUIS EDUARDO garciae for compression therapy. His daughter from [facility] is here visiting him. I checked meds and labs. Blood pressure has been mildly elevated at 160/77 but he is not having any more dysphagia as a complication from intubation and we will discontinue Head catheter and telemetry. Subjective/Events-last exam Having symptoms and signs of steroid myopathy considering the hip flexor weakness but now much improved since completely discontinued prednisone since regimen was completed Having some emotional problems consistent with weaning of the steroids but these also seem to improved today Putting zinc christa on his bottom because it is irritated and will closely jun shantanu that may need Dr. Julien consultation Blood sugars reasonable Home melatonin and since he does not seem to like ours We will recheck for progress next week Cardiology restarted the Lasix for the edema BM Blood pressure stable Dr. Parsons help appreciated Crackles on lungs in bases are now resolved secondary in a row Cognition seems to be improved today Checked meds and labs and white count much improved 13 likely from steroid effect now discontinued Conferred with RN Reviewed therapy notes Dramatically improving and benefitting from intensive therapy and in patient rehab Review of Systems General: Fatigue Objective Exam Vital Signs Vital Signs Date Time Temp Pulse Resp B/P (MAP) Pulse Ox O2 Delivery O2 Flow Rate FiO2 10/03/18 12:00 97.8 61 18 92/63 (73) 96 Room Air 09/30/18 02:14 21 Capillary Refill : General Appearance: No Apparent Distress, WD/WN, Chronically ill HEENT: PERRL/EOMI, Normal ENT Inspection, Pharynx Normal, Moist Mucous Membranes Neck: Full Range of Motion, Normal Inspection, Non Tender, Supple Respiratory: Chest Non Tender, Lungs Clear, Normal Breath Sounds, No Accessory Muscle Use, No Respiratory Distress Cardiovascular: No Edema, No Gallop, No JVD, No Murmur, Irregularly Irregular Gastrointestinal: Normal Bowel Sounds, No Organomegaly, No Pulsatile Mass, Non Tender, Soft Back: Normal Inspection, No CVA Tenderness, No Vertebral Tenderness Extremity: Normal Capillary Refill, Normal Inspection, Normal Range of Motion, Non Tender, No Calf Tenderness, No Pedal Edema Neurologic/Psychiatric: Alert, Oriented x3, No Motor/Sensory Deficits, Normal Mood/Affect, Motor Weakness (diminished strength hip flexors and all extremities) Skin: Normal Color, Warm/Dry Lymphatic: No Adenopathy Results/Procedures Lab Laboratory Tests 10/03/18 04:50 Patient resulted labs reviewed. FIM Transfers Therapy Code Descriptions/Definitions Functional [place] Measure: 0=Not Assessed/NA 4=Minimal Assistance 1=Total Assistance 5=Supervision or Setup 2=Maximal Assistance 6=Modified [place] 3=Moderate Assistance 7=Complete [place] Therapy Quality Codes: 6 Independent with activity with or without an assistive device 5 Patient requires set up or clean up by helper. Patient completes activity by themselves 4 Supervision or touching assist (CGA). [place] provide cues , steadying assist 3 The helper provides less than half the effort to complete the activity 2 The helper provides more than half the effort to complete the activity 1 Dependent. The helper does all the effort to complete an activity 7 Patient refused to complete or attempt activity 9 The patient did not perform the activity before the current illness or injury 88 Not attempted due to Medical conditions or safety concerns Transfers (B, C, W/C) (FIM): 1 (Sit-stand lift.) Scootin Rollin (max assist to fully roll and cues 75% of the time to sequence. ) Roll Left to Right (QC): 2 Supine to/from Sit: 2 Sit to/from Stand: 1 (sit to stand lift) Sit to Lying (QC): 2 Sit to Stand (QC): 1 Chair/Vag-lt-Rtrwf Xfer(QC): 1 Bed to/from Chair: 2 Car Transfer (QC): 88 (Dependent on sit<->stand lift and poor trunk control currently) Gait Training Does the Patient Walk?: No and Walking Goal IS indicated Gait (FIM): 0 Distance (FIM): 0=does not occure Walk 10 feet (QC): 88 Walk 50 ft with 2 Turns(QC): 88 Walk 150 ft (QC): 88 Walking 10ft/uneven surface-QC: 88 Wheelchair Training Does the Pt Use a Wheelchair?: Yes Wheelchair (FIM): 5 Wheelchair Distance: 0=does not occure Distance: 150'x2 Wheelchair Level of Assist: 5 Wheel 50 ft with 2 turns (QC): 3 Wheel 150 ft (QC): 3 Type of Wheelchair: Manual Stair Training Stairs (FIM): 0 1 Step (curb) (QC): 88 4 Steps (QC): 88 12 Steps (QC): 88 Balance Picking up an Object (QC): 88 Mental Status/Objective Comprehension: 6 Expression: 5 Social Interaction: 6 Problem Solvin Memory: 3 ADL-Treatment Feedin Eating (QC): 5 Groomin Oral Hygiene (QC): 4 Bathin (SBA with LH in shower on rolling shower chair.) Bathing Location: L Arm, R Arm, L Upper Leg, R Upper Leg, Chest, Abdomen, Perineal Area Shower/Bathe Self (QC): 4 Upper Extremity Dressin Upper Body Dressing (QC): 4 Lower Extremity Dressin (Pt. able to thread shorts over feet with AE and pull to thighs. Dependent to pull up while on sit-stand. 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 Plan: Monitor labs Weaned steroids off so hopefully the steroid myopathy will improve O2 Nebs BP management IRF therapy protocols Melatonin home supply Monitor crackles on bases for recurrences (1) Myopathy (2) BRIDGER treated with BiPAP (3) CAD S/P percutaneous coronary angioplasty Onset Date: 12/31/2013 (4) Pacemaker (5) Asthma (6) Hx of CABG (7) Leukocytosis (8) Weakness generalized (9) Anemia (10) COPD (chronic obstructive pulmonary disease) (11) Hypoxemia (12) Edema (13) Ulcerative colitis (14) Fecal incontinence (15) Contraindication to anticoagulation therapy (16) Pulmonary hemorrhage (17) Acute insomnia (18) Leukocytosis KOBI ESTEBAN DO Oct 03, 2018 11:50
[2018-10-03 12:00] VITALS: BP 92/63
--- NOTE | 2018-10-03 12:20 | NUR ---
Change to routine vitals per Dr. Saravia.
--- NOTE | 2018-10-03 14:04 | Physical Therapy Daily Note ---
PT Daily Note-Current Subjective Pt laying Supine in bed with Sp & family present. Pt agrees to PT but reports being wet from urinal spill prior to start of tx. Pain Numeric Pain Scale: 5-Moderate Pain Location: Lower Location Body Site: Back Pain Description: Ache, Tightness Mental Status Patient Orientation: Person, Place, Situation Transfers Therapy Code Descriptions/Definitions Functional [place] Measure: 0=Not Assessed/NA 4=Minimal Assistance 1=Total Assistance 5=Supervision or Setup 2=Maximal Assistance 6=Modified [place] 3=Moderate Assistance 7=Complete [place] Therapy Quality Codes: 6 Independent with activity with or without an assistive device 5 Patient requires set up or clean up by helper. Patient completes activity by themselves 4 Supervision or touching assist (CGA). [place] provide cues , steadying assist 3 The helper provides less than half the effort to complete the activity 2 The helper provides more than half the effort to complete the activity 1 Dependent. The helper does all the effort to complete an activity 7 Patient refused to complete or attempt activity 9 The patient did not perform the activity before the current illness or injury 88 Not attempted due to Medical conditions or safety concerns Scootin Rollin Sit to/from Stand: 1 Sit to Stand (QC): 1 Weight Bearing Right Lower Extremity: Right Full Weight Bearing Left Lower Extremity: Left Full Weight Bearing Wheelchair Training Does the Pt Use a Wheelchair?: Yes Wheelchair (FIM): 5 Wheelchair Distance: 3=150 ft Distance: 150' Wheelchair Level of Assist: 5 Wheel 50 ft with 2 turns (QC): 5 Wheel 150 ft (QC): 5 Type of Wheelchair: Manual Exercises Supine Ex: Rolling, Scooting Treatments Pt completes bed mobility to sit at EOB. Pt uses Sit to Stand lift to aid with standing while pt is assisted with donning/doffing new shorts and socks. Pt is transferred to W/C. Pt then works on W/C mobility in [employer] before returning to room to rest and eat lunch. Pt has needs met, call light next to pt. Assessment Current Status: Good Progress Pt reports limited standing position due to discomfort in back. PT Short Term Goals Short Term Goals Time Frame: Oct 12, 2018 Transfers (B,C,W/C) (FIM): 4 Wheelchair Distance: 150'x2 PT Senior Benefits Specialist Goals Senior Benefits Specialist Goals PT Alf Goals Time Frame: Oct 26, 2018 Transfers (B,C,W/C) (FIM): 6 Sit to Lying (QC): 6 Lying-Sitting on Side/Bed(QC): 6 Sit to Stand (QC): 6 Rollin (max assist to fully roll and cues 75% of the time to sequence. ) Roll Left to Right (QC): 6 Chair/Dga-nm-[place] Xfer(QC): 6 Car Transfer (QC): 6 Does the Patient Walk: No and Walking Goal IS indicated Gait (FIM): 6 Gait distance (FIM): 3=150 ft Distance: 150 Walk 10 feet (QC): 6 Walk 10ft-Uneven Surface(QC): 6 Walk 50ft with 2 Turns (QC): 6 Walk 150 ft (QC): 6 Gait Level of Assist: 6 Gait Assistive Device: FWW Stairs (FIM): 6 # of Steps: 12 1 Step (curb) (QC): 6 4 Steps (QC): 6 12 Steps (QC): 6 Stairs Level Of Assist: 6 Picking up an Object (QC): 5 PT Plan Problem List Problem List: Activity Tolerance, Functional Strength, Safety, Balance, Transfer, Bed Mobility Treatment/Plan Treatment Plan: Continue Plan of Care Treatment Plan: Bed Mobility, Concurrent Therapy, Education, Functional Activity [place], Functional Strength, Group Therapy, Gait, Safety, Therapeutic Exercise, Transfers Treatment Duration: Oct 26, 2018 Frequency: At least 5 of 7 days/Wk (IRF) Estimated Hrs Per Day: 1.5 hours per day Patient and/or Family Agrees t: Yes Safety Risks/Education Patient Education: Transfer Techniques, Correct Positioning, W/C Management, Safety Issues Teaching Recipient: Patient Teaching Methods: Discussion Response to Teaching: Verbalize Understanding Time/GCodes Time In: 1100 Time Out: 1200 Total Billed Treatment Time: 60 Total Billed Treatment 1, WCH (20m), EX (15m) & FA x2 (25m) G Codes Necessary: YECENIA Farah PTA Oct 03, 2018 14:04
--- NOTE | 2018-10-03 14:30 | Therapy Group Daily Note ---
Therapy Daily Group Note Patient Education Topic Other List Below (Memory Strategies) Session Ratio (pt:therapist): 4:1 Goal of Session: Memory Strategies Goal Met for this Session: Yes Pt Benefit of Group: Contributions to Others, F/U Use of Strategies @Home, Increased Functional Safety, Improved Cognition, Recognition of Peers, Socialization Other/Notes Pt propels to PT/OT Group via W/C. Group consisted of Introductions (Name, Where you are from & Favorite 03 of October or Firework Memory), Socialization, Memory Strategies and Activity. Pt actively participated in Group by listening to peers, giving personal Memory Strategies as well guesses during game. Pt returns to room at end of Group to rest with all needs met. Start Time: 12:30 Stop Time: 13:30 Total Billed Treatment Time: 60 Total Billed Treatment 1, GRP YECENIA NGUYEN OIL TRANSPORT DRIVER Oct 03, 2018 14:30
--- NOTE | 2018-10-03 15:07 | Progress Note - Cardiology ---
Cardiology SOAP Progress Note Subjective: No cp or palp or syncope Malaise and tiredness and weakness slowly improving Objective: I&O/Vital Signs 10/03/18 10/03/18 10/03/18 10/03/18 03:56 06:59 08:16 09:00 Temp 97.4 98.2 Pulse 68 65 Resp 17 18 B/P (MAP) 137/80 (99) 105/66 (79) Pulse Ox 95 93 97 O2 Delivery NIV CPAP Room Air Room Air Room Air 10/03/18 12:00 Temp 97.8 Pulse 61 Resp 18 B/P (MAP) 92/63 (73) Pulse Ox 96 O2 Delivery Room Air 10/02/18 23:59 Intake Total 900 ml Output Total 950 ml Balance -50 ml Weight (Pounds): 205 Weight (Ounces): 0.0 Weight (Calculated Kilograms): 92.379905 Constitutional: AAO x 3, well-developed, well-nourished Respiratory: No accessory muscle use; other (good bilat air entry, diminished at the bases) Cardiovascular: regular rate-rhythm, S1 and S2, systolic murmur (soft GRETA at card base) Gastrointestional: No tender; soft; No guarding, No rebound; audible bowel sounds Extremities: swelling (mild bilat leg edema); No clubbing, No cyanosis Neurologic/Psychiatric: oriented x 3, grossly intact, power is 5/5 both on si verenice Skin: No rash on exposed areas, No ulcerations on exposed areas Results/Procedures: Labs Laboratory Tests 10/02/18 17:29: Glucometer 198H 10/02/18 23:30: Glucometer 161H 10/03/18 04:50: White Blood Count 13.0H, Red Blood Count 3.85L, Hemoglobin 11.8L, Hematocrit 35L , Mean Corpuscular Volume 92, Mean Corpuscular Hemoglobin 31, Mean Corpuscular Hemoglobin Concent 33, Red Cell Distribution Width 15.4H, Platelet Count 165, Mean Platelet Volume 9.6, Neutrophils (%) (Auto) 79H, Lymphocytes (%) (Auto) 11L , Monocytes (%) (Auto) 10, Eosinophils (%) (Auto) 0, Basophils (%) (Auto) 0, Neutrophils # (Auto) 10.3H, Lymphocytes # (Auto) 1.4, Monocytes # (Auto) 1.2H, Eosinophils # (Auto) 0.0, Basophils # (Auto) 0.0, Sodium Level 138, Potassium Level 3.6, Chloride Level 103, Carbon Dioxide Level 28, Anion Gap 7, Blood Urea Nitrogen 19H, Creatinine 0.74, Estimat Glomerular Filtration Rate > 60, BUN/Creatinine Ratio 26, Glucose Level 117H, Calcium Level 8.3L, Corrected Calcium 9.2, Total Bilirubin 0.6, Aspartate Amino Transf (AST/SGOT) 27, Alanine Aminotransferase (ALT/SGPT) 54, Alkaline Phosphatase 80, Total Protein 4.8L, Albumin 2.9L 10/03/18 04:51: Glucometer 115H 10/03/18 11:59: Glucometer 150H Laboratory Tests 10/03/18 04:50 A/P: Assessment: Hemoptysis and pulmonary hemorrhage necessitating discontinuation of Eliquis and aspirin in mid-August 2018; low-dose aspirin reinitiated on 10/01/18 Echo of 09/19/18: LVEF 60-65%, biatrial enlargement, mod MR, mild to mod TR, RVSP 45 mmHg 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 Cardiac cath from December 30, 2013 in which successful VERENICE x 2, one to the proximal and one to the mid vessel LAD, was done. 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 Pacemaker currently in the VVIR mode, due to permanent atrial fib. The patient had a pulse generator change out on 12/18/2011. The device is functioning normally per last interrogation of September 23, 2018 (DIMITRIOS estimate 11 months) History of ulcerative colitis, being managed by Dr. Parsons and Dr. Seymour Stroke prophylaxis with Eliquis - currently being held d/t hemoptysis Sleep apnea for which he is following with Dr Mijares - Bi-pap therapy Hyperlipidemia being treated with rosuvastatin. Mild carotid arterial disease that has been followed by Dr. Mcdaniel History of cholecystectomy. 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
[2018-10-03 15:48] VITALS: BP 100/63
[2018-10-03 18:08] VITALS: BP 144/86
[2018-10-03] MEDS: TAMSULOSIN 0.4 MG (FLOMAX) CAP PO SCH (18:09)
[2018-10-03] MEDS: LOSARTAN 25 MG (COZAAR) TAB PO SCH (18:09)
[2018-10-03] MEDS: MELATONIN 3 MG TABLET PO PRN (19:59)
[2018-10-03] MEDS: MESALAMINE 1.2 GM PO SCH (20:00)
[2018-10-03 20:36] VITALS: BP 113/62
[2018-10-04] MEDS: inSUlin ASPART (NovoLOG) 1 UNIT/0.01 ML (CHARGE PER UNIT) SC SCH ×5 (01:17→23:55)
[2018-10-04 06:29] VITALS: BP 123/72
[2018-10-04] MEDS: PANTOPRAZOLE 40 MG (PROTONIX) TAB PO SCH (06:59)
[2018-10-04] MEDS: KCL 10 MEQ TAB (MICRO K) PO SCH (06:59)
[2018-10-04] MEDS: LACTOBACILLUS ACIDOPHILUS (PROBIOTIC) CAPSULE PO SCH ×2 (06:59→16:35)
[2018-10-04] MEDS: FUROSEMIDE 40 MG (LASIX) TAB PO SCH (07:00)
[2018-10-04] MEDS: RT-ALBUTEROL/IPRATROPIUM 3 ML (DUONEB) VIAL INH SCH ×2 (07:57→19:56)
--- NOTE | 2018-10-04 08:05 | Pulmonary Progress Note ---
Subjective Time Seen by a Provider: 08:04 Subjective/Events-last exam Pt is doing better. Sepsis Event Evaluation Height, Weight, BMI Height: 5'6.00" Weight: 205lbs. 0.0oz. 92.272032ky; 33.1 BMI Method:Stated Exam Exam Vital Signs Date Time Temp Pulse Resp B/P (MAP) Pulse Ox O2 Delivery O2 Flow Rate FiO2 10/04/18 06:29 98.1 65 16 123/72 (89) 96 Room Air 10/03/18 21:00 Room Air 10/03/18 20:36 99.2 66 16 113/62 (79) 97 Room Air 10/03/18 20:05 94 Room Air 10/03/18 18:08 78 144/86 (105) 10/03/18 15:48 96.6 61 16 100/63 (75) 98 Room Air 10/03/18 12:00 97.8 61 18 92/63 (73) 96 Room Air 10/03/18 09:00 Room Air 10/03/18 08:16 98.2 65 18 105/66 (79) 97 Room Air I & O 10/04/18 07:00 Intake Total 1000 ml Output Total 1875 ml Balance -875 ml Height & Weight Height: 5'6.00" Weight: 205lbs. 0.0oz. 92.090422um; 33.1 BMI Method:Stated General Appearance: No Apparent Distress, WD/WN, Chronically ill HEENT: PERRL/EOMI, Normal ENT Inspection, Pharynx Normal, Moist Mucous Membranes Neck: Full Range of Motion, Normal Inspection, Non Tender, Supple Respiratory: Chest Non Tender, No Accessory Muscle Use, No Respiratory Distress, Crackles, Decreased Breath Sounds Cardiovascular: No Edema, No Gallop, No JVD, No Murmur, Irregularly Irregular Gastrointestinal: normal bowel sounds, non tender, soft, no organomegaly, no pulsatile mass Extremity: Normal Capillary Refill, Normal Inspection, Normal Range of Motion, Non Tender, No Calf Tenderness, No Pedal Edema Neurologic/Psychiatric: Alert, Oriented x3, No Motor/Sensory Deficits, Normal Mood/Affect, Motor Weakness (generalized all extremities 4/5) Skin: Normal Color, Warm/Dry Lymphatic: No Adenopathy Results Lab Laboratory Tests 10/03/18 04:50 Assessment/Plan Assessment/Plan Pulmonary hemorrhage -improved -Last hospitalization I check ANCA, Anti-Glomerular BM, and GENE - they were negative - echo shows EF 60-65% -monitor -prednisone taper Leukocytosis - probably secondary to prednisone -Monitor DM -SSI may need to start Levemir BRIDGER -Out pt JUAN Don DO Oct 04, 2018 08:05
--- NOTE | 2018-10-04 08:05 | NUR ---
patient is sitting in the wheelchair and satting 97% on RA
[2018-10-04] MEDS: LORATADINE (CLARITIN) 10 MG TAB PO SCH (09:40)
[2018-10-04] MEDS: meTOprolol TARTRATE 50 MG (LOPRESSOR) TAB PO SCH ×2 (09:40→21:38)
[2018-10-04] MEDS: ASPIRIN 81 MG CHEW (CHILDREN'S ASA) PO SCH (09:40)
[2018-10-04] MEDS: DILTIAZEM 300 MG (CARDIZEM CD) CAP PO SCH (09:40)
[2018-10-04] MEDS: SENNA W/DOCUSATE (SENOKOT S) TABLET PO SCH ×2 (09:40→21:38)
[2018-10-04] MEDS: DICLOFENAC 1% GEL 100 GM (VOLTAREN) TUBE TOP SCH ×4 (09:41→21:39)
--- NOTE | 2018-10-04 11:15 | Speech Therapy Daily Note ---
Speech Daily Progress Note Subjective Date Seen by Provider: Oct 04, 2018 Time Seen by Provider: 00:30 The patient states he slept well last night. Objective he patient completed memory tasks at 80% with min to mod verbal cues and/or repetitions. Assessment Assessment Current Status: Good Progress Treatment Plan Continue Plan of Care Communication Comprehension: 6 Expression: 5 Social Cognition Social Interaction: 6 Problem Solvin Memory: 3 Speech Short Term Goals Short Term Goals Short Term Goals 1) The patient will complete memory tasks at 80% or greater with minimal verbal cues. 2) The patient will complete problem solving tasks at 80% or greater with minimal verbal cues. 3) The patient will complete safety awareness tasks at 80% or greater with minimal verbal cues. Speech Oven Dauber Goals Oven Dauber Goals The patient will increase cognitive skills for safety and independence. Speech-Plan Patient/Family Goals Patient/Family Goals: The patient plans on returning home with his post rehab. Treatment Plan Speech Therapy Treatment Plan: Continue Plan of Care The patient appears to be improving with his last dose of steroids 48 hours ago. Treatment Duration: Oct 11, 2018 Frequency: 4 times per week Estimated Hrs Per Day: .5 hour per day Rehab Potential: Fair Barriers to Learning: The patient has had a cognitive decline this week. Pt/Family Agrees to Plan: Yes Safety Risks/Education Teaching Recipient: Patient Teaching Methods: Discussion Response to Teaching: Verbalize Understanding Education Topics Provided: Continued safety within his room. Time Speech Therapy Time In: 10:30 Speech Therapy Time Out: 11:00 Total Billed Time: 30 Billed Treatment Time 1NICOLE No (Continued safety within his room.) ARI LENZ Oct 04, 2018 11:15
--- NOTE | 2018-10-04 11:33 | PM&R Progress Note ---
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 Parsons who presents after a complex ICU stay which included intubation due to respiratory insufficiency due to recurrent pulmonary hemorrhage requiring airway protection and placed on treatment for hospital acquired pneumonia. Patient is not an anticoagulation candidate at this current time due to the recurrent hemorrhages. Patient is doing extremely well very weak and will require intensive rehabilitation in order to return home. Prior level of functioning was independent with ADLs and ambulation. He does have a history of inflammatory bowel disease of which he has a lot of diarrhea which is chronic. He denies any significant pain and he does have lower extremity edema we have initiated LUIS EDUARDO her for compression therapy. His daughter from [facility] is here visiting him. I checked meds and labs. Blood pressure has been mildly elevated at 160/77 but he is not having any more dysphagia as a complication from intubation and we will discontinue Head catheter and telemetry. Subjective/Events-last exam Improved symptoms and signs of steroid myopathy considering the hip flexor weakness but now much improved since completely discontinued prednisone since regimen was completed 2 days ago Having some emotional problems consistent with weaning of the steroids but these also seem to improved yesterday and certainly today Putting zinc christa on his bottom because it is irritated and will closely monitor that may need Dr. Julien consultation Blood sugars reasonable and were all reviewed Home melatonin taken and he seems to have slept better last night We will recheck for progress next week Cardiology restarted the Lasix for the edema and that is improved along with LUIS EDUARDO's BM+ tis morning Blood pressure stable Dr. Parsons help appreciated Crackles on lungs in bases are now resolved Cognition seems to be improved today Checked meds and labs and white count much improved 13 likely from steroid effect now discontinued Conferred with RN Reviewed therapy notes Dramatically improving and benefitting from intensive therapy and in patient rehab Review of Systems General: Fatigue Objective Exam Vital Signs Vital Signs Date Time Temp Pulse Resp B/P (MAP) Pulse Ox O2 Delivery O2 Flow Rate FiO2 10/04/18 09:00 Room Air 10/04/18 07:57 97 10/04/18 06:29 98.1 65 16 123/72 (89) 09/30/18 02:14 21 Capillary Refill : General Appearance: No Apparent Distress, WD/WN, Chronically ill HEENT: PERRL/EOMI, Normal ENT Inspection, Pharynx Normal, Moist Mucous Membranes Neck: Full Range of Motion, Normal Inspection, Non Tender, Supple Respiratory: Chest Non Tender, Lungs Clear, Normal Breath Sounds, No Accessory Muscle Use, No Respiratory Distress, Decreased Breath Sounds Cardiovascular: No Edema, No Gallop, No JVD, No Murmur, Irregularly Irregular Gastrointestinal: Normal Bowel Sounds, No Organomegaly, No Pulsatile Mass, Non Tender, Soft Back: Normal Inspection, No CVA Tenderness, No Vertebral Tenderness Extremity: Normal Capillary Refill, Normal Inspection, Normal Range of Motion, Non Tender, No Calf Tenderness, No Pedal Edema Neurologic/Psychiatric: Alert, Oriented x3, No Motor/Sensory Deficits, Normal Mood/Affect, Motor Weakness (generalized all extremities 4/5) Skin: Normal Color, Warm/Dry Lymphatic: No Adenopathy Results/Procedures Lab Patient resulted labs reviewed. FIM Transfers Therapy Code Descriptions/Definitions Functional [place] Measure: 0=Not Assessed/NA 4=Minimal Assistance 1=Total Assistance 5=Supervision or Setup 2=Maximal Assistance 6=Modified [place] 3=Moderate Assistance 7=Complete [place] Therapy Quality Codes: 6 Independent with activity with or without an assistive device 5 Patient requires set up or clean up by helper. Patient completes activity by themselves 4 Supervision or touching assist (CGA). [place] provide cues , steadying assist 3 The helper provides less than half the effort to complete the activity 2 The helper provides more than half the effort to complete the activity 1 Dependent. The helper does all the effort to complete an activity 7 Patient refused to complete or attempt activity 9 The patient did not perform the activity before the current illness or injury 88 Not attempted due to Medical conditions or safety concerns Transfers (B, C, W/C) (FIM): 1 (Sit-stand lift.) Scootin Rollin Roll Left to Right (QC): 2 Supine to/from Sit: 2 Sit to/from Stand: 1 Sit to Lying (QC): 2 Sit to Stand (QC): 1 Chair/Jxa-zn-Emevh Xfer(QC): 1 Bed to/from Chair: 2 Car Transfer (QC): 88 (Dependent on sit<->stand lift and poor trunk control currently) Gait Training Does the Patient Walk?: No and Walking Goal IS indicated Gait (FIM): 0 Distance (FIM): 0=does not occure Walk 10 feet (QC): 88 Walk 50 ft with 2 Turns(QC): 88 Walk 150 ft (QC): 88 Walking 10ft/uneven surface-QC: 88 Wheelchair Training Does the Pt Use a Wheelchair?: Yes Wheelchair (FIM): 5 Wheelchair Distance: 3=150 ft Distance: 150' Wheelchair Level of Assist: 5 Wheel 50 ft with 2 turns (QC): 5 Wheel 150 ft (QC): 5 Type of Wheelchair: Manual Stair Training Stairs (FIM): 0 1 Step (curb) (QC): 88 4 Steps (QC): 88 12 Steps (QC): 88 Balance Picking up an Object (QC): 88 Mental Status/Objective Comprehension: 6 Expression: 5 Social Interaction: 6 Problem Solvin Memory: 3 ADL-Treatment Feedin Eating (QC): 5 Groomin Oral Hygiene (QC): 4 Bathin (SBA with LH in shower on rolling shower chair.) Bathing Location: L Arm, R Arm, L Upper Leg, R Upper Leg, Chest, Abdomen, Perineal Area Shower/Bathe Self (QC): 4 Upper Extremity Dressin Upper Body Dressing (QC): 4 Lower Extremity Dressin (Pt. able to thread shorts over feet with AE and pull to thighs. Dependent to pull up while on sit-stand. 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 Likely due to steroids Plan: Monitor labs Weaned steroids off so hopefully the steroid myopathy will continue to improve O2 Nebs BP management IRF therapy protocols Melatonin home supply Monitor crackles on bases for recurrences (1) Myopathy (2) BRIDGER treated with BiPAP (3) CAD S/P percutaneous coronary angioplasty Onset Date: 12/31/2013 (4) Pacemaker (5) Asthma (6) Hx of CABG (7) Leukocytosis (8) Weakness generalized (9) Anemia (10) COPD (chronic obstructive pulmonary disease) (11) Hypoxemia (12) Edema (13) Ulcerative colitis (14) Fecal incontinence (15) Contraindication to anticoagulation therapy (16) Pulmonary hemorrhage (17) Acute insomnia (18) Leukocytosis KOBI ESTEBAN DO Oct 04, 2018 11:33
--- NOTE | 2018-10-04 11:56 | Physical Therapy Daily Note ---
PT Daily Note-Current Subjective Patient in bed pre tx, agrees to PT, has no complaints of pain at rest Appearance Patient in bed post tx with nurse call, phone, tray, all needs met, in room. Mental Status Patient Orientation: Person, Place, Situation, Normal For Age Transfers Therapy Code Descriptions/Definitions Functional [place] Measure: 0=Not Assessed/NA 4=Minimal Assistance 1=Total Assistance 5=Supervision or Setup 2=Maximal Assistance 6=Modified [place] 3=Moderate Assistance 7=Complete [place] Therapy Quality Codes: 6 Independent with activity with or without an assistive device 5 Patient requires set up or clean up by helper. Patient completes activity by themselves 4 Supervision or touching assist (CGA). [place] provide cues , steadying assist 3 The helper provides less than half the effort to complete the activity 2 The helper provides more than half the effort to complete the activity 1 Dependent. The helper does all the effort to complete an activity 7 Patient refused to complete or attempt activity 9 The patient did not perform the activity before the current illness or injury 88 Not attempted due to Medical conditions or safety concerns Transfers (B, C, W/C) (FIM): 2 Scootin Rollin Supine to/from Sit: 3 Sit to/from Stand: 2 Bed to/from Chair: 2 Max assist for stand pivot transfer and sit to stand but it has improved, patient needs assist with both legs for supine <-> sit Weight Bearing Right Lower Extremity: Right Full Weight Bearing Left Lower Extremity: Left Full Weight Bearing Wheelchair Training Does the Pt Use a Wheelchair?: Yes Wheelchair (FIM): 5 Distance: 150'x2 Wheelchair Level of Assist: 5 Type of Wheelchair: Manual Exercises LAQ alternating for 5 min, stood in parallel bars with max assist x3 for about 30 seconds each time. He is almost mod assist for standing now but not quite. NuStep Minutes: 15 NuStep Workload: 4 Treatments bed mobility and transfers, standing, LE exercise Assessment Current Status: Fair Progress slowly improving UE and LE strength PT Short Term Goals Short Term Goals Time Frame: Oct 12, 2018 Transfers (B,C,W/C) (FIM): 4 Wheelchair Distance: 150' PT Plant Etiologist Goals Correction Goals PT Plant Etiologist Goals Time Frame: Oct 26, 2018 Transfers (B,C,W/C) (FIM): 6 Sit to Lying (QC): 6 Lying-Sitting on Side/Bed(QC): 6 Sit to Stand (QC): 6 Rollin Roll Left to Right (QC): 6 Chair/Ccj-qm-Qgqak Xfer(QC): 6 Car Transfer (QC): 6 Does the Patient Walk: No and Walking Goal IS indicated Gait (FIM): 6 Gait distance (FIM): 3=150 ft Distance: 150 Walk 10 feet (QC): 6 Walk 10ft-Uneven Surface(QC): 6 Walk 50ft with 2 Turns (QC): 6 Walk 150 ft (QC): 6 Gait Level of Assist: 6 Gait Assistive Device: FWW Stairs (FIM): 6 # of Steps: 12 1 Step (curb) (QC): 6 4 Steps (QC): 6 12 Steps (QC): 6 Stairs Level Of Assist: 6 Picking up an Object (QC): 5 PT Plan Problem List Problem List: Activity Tolerance, Functional Strength, Safety, Balance, Gait, Transfer, Bed Mobility, ROM Treatment/Plan Treatment Plan: Continue Plan of Care Treatment Plan: Bed Mobility, Concurrent Therapy, Education, Functional Activity Gilbert, Functional Strength, Group Therapy, Gait, Safety, Therapeutic Exercise, Transfers Treatment Duration: Oct 26, 2018 Frequency: At least 5 of 7 days/Wk (IRF) Estimated Hrs Per Day: 1.5 hours per day Patient and/or Family Agrees t: Yes Safety Risks/Education Patient Education: Transfer Techniques, Correct Positioning, W/C Management, Safety Issues Teaching Recipient: Patient Teaching Methods: Demonstration, Discussion Response to Teaching: Reinforcement Needed Time/GCodes Time In: 1100 Time Out: 1200 Total Billed Treatment Time: 60 Total Billed Treatment 1 visit EX 30' WC 15' FA 15' MARIA ELENA ESQUIVEL PT Oct 04, 2018 11:56
--- NOTE | 2018-10-04 14:18 | Therapy Group Daily Note ---
Therapy Daily Group Note Session Ratio (pt:therapist): 4:1 Goal of Session: Memory Strategies, UE/LE Strengthing, Safety with Transfers Goal Met for this Session: Yes Pt Benefit of Group: Contributions to Others, Improved Cognition, Recognition of Peers, Socialization Other/Notes Patient participated in group therapy in the common area of rehab. Each patient had to introduce themselves and state words that they had to remember from a previous session. They then socialized and participated in a game/activity that involved memory, critical thinking, and strategy and UE AROM and digital manipulation. Then, each patient was taken back to their rooms and placed in bed or chair with nurse call, phone, tray, all needs met. Start Time: 13:00 Stop Time: 14:10 Total Billed Treatment Time: 70 Total Billed Treatment 1 visit GRP 70MARIA ELENA MOLINA PT Oct 04, 2018 14:18
--- NOTE | 2018-10-04 15:09 | Occupational Ther Daily Note ---
OT Current Status-Daily Note Subjective Pt sleeping in bed, woke easily to name. Pt agrees to therapy. No c/o pain at this time. Mental Status/Objective Patient Orientation: Person, Place, Time, Situation Therapy Code Descriptions/Definitions Functional [place] Measure: 0=Not Assessed/NA 4=Minimal Assistance 1=Total Assistance 5=Supervision or Setup 2=Maximal Assistance 6=Modified [place] 3=Moderate Assistance 7=Complete [place] ADL-Treatment Pt declines shower, stating that he had sponge bath earlier. Dependent with transfers using sit to stand. Pt completed grooming in w/c. Pt propelled self in w/c to therapy gym. Completed arm bike 15 min at 15 bergeron resistance to increase strength and activity tolerance for daily functional tasks. Pt then was able to complete 2 sets of dowel myles shldr exercises 10x's each. After therapy, pt lying in bed with call light/phone in reach. All needs met. Therapy Code Descriptions/Definitions Functional [place] Measure: 0=Not Assessed/NA 4=Minimal Assistance 1=Total Assistance 5=Supervision or Setup 2=Maximal Assistance 6=Modified [place] 3=Moderate Assistance 7=Complete [place] Therapy Quality Codes: 6 Independent with activity with or without an assistive device 5 Patient requires set up or clean up by helper. Patient completes activity by themselves 4 Supervision or touching assist (CGA). [place] provide cues , steadying assist 3 The helper provides less than half the effort to complete the activity 2 The helper provides more than half the effort to complete the activity 1 Dependent. The helper does all the effort to complete an activity 7 Patient refused to complete or attempt activity 9 The patient did not perform the activity before the current illness or injury 88 Not attempted due to Medical conditions or safety concerns Grooming (FIM): 6 Oral Hygiene (QC): 6 OT Short Term Goals Short Term Goals Time Frame: Oct 04, 2018 Grooming(FIM): 4 Bathing(FIM): 3 Upper Body Dressing(FIM): 4 Lower Body Dressing(FIM): 3 Toileting(FIM): 3 Transfers (B,C,W/C) (FIM): 4 Toilet/Commode Transfer(FIM): 3 Additional Short Term Goals: 1-Demonstrate ADL Tasks, 2-Verbalize Understanding, 3-ImproveStrength/Gilbert 1=Demonstrate adherence to instructed precautions during ADL tasks. 2=Patient will verbalize/demonstrate understanding of assistive devices/modifications for ADL. 3=Patient will improve strength/tolerance for activity to enable patient to perform ADL's. OT Fdc Goals Insurance Salesperson Goals Time Frame: Oct 25, 2018 Eating (FIM): 6 Eating (QC): 6 Groomin Oral Hygiene (QC): 6 Bathing(FIM): 5 Shower/Bathe Self (QC): 5 Upper Body Dressing(FIM): 5 Upper Body Dressing (QC): 5 Lower Body Dressing(FIM): 5 Lower Body Dressing (QC): 5 On/Off Footwear (QC): 5 Toileting(FIM): 5 Toileting Hygiene (QC): 5 Toilet/Commode Transfer(FIM): 5 Toilet/Commode Transfer (QC): 5 Shower Transfer(FIM): 5 Additional Goals: 1-Demonstrate ADL Tasks, 2-Verbalize Understanding, 3-Im proveStrength/Gilbert 1=Demonstrate adherence to instructed precautions during ADL tasks. 2=Patient will verbalize/demonstrate understanding of assistive devices/modifications for ADL. 3=Patient will improve strength/tolerance for activity to enable patient to perform ADL's. OT Education/Plan Problem List/Assessment Pt demonstrates decreased mobility, strength, activity tolerance, and ADL functioning. Pt to benefit from skilled OT intervention for ADL training, transfers, strengthening, and home safety education to increase level of independence and allow safe discharge home. Discharge Recommendations Plan/Recommendations: Continue POC Treatment Plan/Plan of Care Patient would benefit from OT for education, treatment and training to promote independence in ADL's, mobility, safety and/or upper extremity function for ADL's. Plan of Care: ADL Retraining, Functional Mobility, Group Exercise/Act as Ind, UE Funct Exercise/Act Treatment Duration: Oct 25, 2018 Frequency: At least 5 of 7 days/Wk (IRF) Estimated Hrs Per Day: 1.5 hours per day Agreement: Yes Rehab Potential: Fair Time/GCodes Start Time: 09:00 Stop Time: 10:00 Total Time Billed (hr/min): 60 Billed Treatment Time 1 visit-FA 1 (20 min) EX 3 (40 min) NERY ADAIR Oct 04, 2018 15:08
[2018-10-04] MEDS: ACETAMINOPHEN 500 MG TAB (TYLENOL) PO PRN (16:35)
[2018-10-04 18:00] VITALS: BP 127/74
--- NOTE | 2018-10-04 18:56 | Progress Note - Cardiology ---
Cardiology SOAP Progress Note Subjective: Exhausted from having participated in rehab exercises No cp or palp or syncope Objective: I&O/Vital Signs 10/04/18 10/04/18 07:57 09:00 Pulse Ox 97 O2 Delivery Room Air Room Air 10/04/18 00:00 Intake Total 600 ml Output Total 1500 ml Balance -900 ml Weight (Pounds): 205 Weight (Ounces): 0.0 Weight (Calculated Kilograms): 92.835896 Constitutional: AAO x 3, well-developed, well-nourished Respiratory: No accessory muscle use; other (good bilat air entry, diminished at the bases) Cardiovascular: regular rate-rhythm, S1 and S2, systolic murmur (soft GRETA at card base) Gastrointestional: No tender; soft; No guarding, No rebound; audible bowel sounds Extremities: swelling (mild bilat leg edema); No clubbing, No cyanosis Neurologic/Psychiatric: oriented x 3, grossly intact, power is 5/5 both on sides Skin: No rash on exposed areas, No ulcerations on exposed areas Results/Procedures: Labs Laboratory Tests 10/04/18 00:00: Glucometer 193H 10/04/18 05:51: Glucometer 165H 10/04/18 11:57: Glucometer 187H 10/04/18 18:41: Glucometer 249H Laboratory Tests 10/03/18 04:50 A/P: Assessment: Hemoptysis and pulmonary hemorrhage necessitating discontinuation of Eliquis and aspirin in mid-August 2018; low-dose aspirin reinitiated on 10/01/18 Echo of 09/19/18: LVEF 60-65%, biatrial enlargement, mod MR, mild to mod TR, RVSP 45 mmHg 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 Cardiac cath from December 30, 2013 in which successful GAURI x 2, one to the proximal and one to the mid vessel LAD, was done. 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 Pacemaker currently in the VVIR mode, due to permanent atrial fib. The patient had a pulse generator change out on 12/18/2011. The device is functioning normally per last interrogation of September 23, 2018 (DIMITRIOS estimate 11 months) History of ulcerative colitis, being managed by Dr. Parsons and Dr. Seymour Stroke prophylaxis with Eliquis - currently being held d/t hemoptysis Sleep apnea for which he is following with Dr Mijares - Bi-pap therapy Hyperlipidemia being treated with rosuvastatin. Mild carotid arterial disease that has been followed by Dr. Mcdaniel History of cholecystectomy. Impaired fasting glucose Elevated BMI of approx 30 S/p melanoma removal from the back in 2018, followed by Dr Parsons Plan: * Complex management due to multiple comorbidities * Continue current regimen * Monitor labs from time to time TOSHA JUNIOR MD FACP FAC CCDS Oct 04, 2018 18:56
[2018-10-04] MEDS: TAMSULOSIN 0.4 MG (FLOMAX) CAP PO SCH (19:23)
[2018-10-04] MEDS: LOSARTAN 25 MG (COZAAR) TAB PO SCH (19:23)
[2018-10-04] MEDS: MELATONIN 3 MG TABLET PO PRN (21:38)
[2018-10-04] MEDS: traZODone 50 MG (DESYREL) TAB PO PRN (21:38)
[2018-10-04] MEDS: MESALAMINE 1.2 GM PO SCH (21:39)
[2018-10-05 05:44] LABS: BASOPHILS % (AUTO) 0 % (0-10); EOSINOPHILS # (AUTO) 0.1 10^3/uL (0.0-0.3); EOSINOPHILS % (AUTO) 0 % (0-10); HEMATOCRIT 33 % (40-54); HEMOGLOBIN 10.9 G/DL (13.3-17.7); LYMPHOCYTES # (AUTO) 1.5 X 10^3 (1.0-4.0); LYMPHOCYTES % (AUTO) 12 % (12-44); MEAN CORPUSCULAR HEMOGLOBIN 31 PG (25-34); MEAN CORPUSCULAR HGB CONC 33 G/DL (32-36); MEAN CORPUSCULAR VOLUME 92 FL (80-99); MEAN PLATELET VOLUME 9.8 FL (7.4-10.4); MONOCYTES # (AUTO) 0.9 X 10^3 (0.0-1.0); MONOCYTES % (AUTO) 7 % (0-12); NEUTROPHILS # (AUTO) 10.5 X 10^3 (1.8-7.8); NEUTROPHILS % (AUTO) 81 % (42-75); PLATELET COUNT 129 10^3/uL (130-400); RED CELL DISTRIBUTION WIDTH 15.8 % (10.0-14.5); WHITE BLOOD COUNT 12.9 10^3/uL (4.3-11.0)
[2018-10-05 06:04] LABS: ALANINE AMINOTRANSFERASE 42 U/L (0-55); ALBUMIN 2.6 GM/DL (3.2-4.5); ALKALINE PHOSPHATASE 74 U/L (40-136); BILIRUBIN,TOTAL 0.8 MG/DL (0.1-1.0); BUN/CREATININE RATIO 22; CALCIUM 8.1 MG/DL (8.5-10.1); CARBON DIOXIDE 25 MMOL/L (21-32); CHLORIDE 102 MMOL/L (98-107); CREATININE SERUM 0.64 MG/DL (0.60-1.30); GFR ESTIMATED > 60; GLUCOSE 143 MG/DL (70-105); POTASSIUM 3.7 MMOL/L (3.6-5.0); SODIUM 135 MMOL/L (135-145); TOTAL PROTEIN 4.7 GM/DL (6.4-8.2)
[2018-10-05] MEDS: inSUlin ASPART (NovoLOG) 1 UNIT/0.01 ML (CHARGE PER UNIT) SC SCH ×3 (06:05→21:18)
[2018-10-05] MEDS: PANTOPRAZOLE 40 MG (PROTONIX) TAB PO SCH (06:16)
[2018-10-05] MEDS: LACTOBACILLUS ACIDOPHILUS (PROBIOTIC) CAPSULE PO SCH ×2 (06:16→17:06)
[2018-10-05] MEDS: FUROSEMIDE 40 MG (LASIX) TAB PO SCH (06:16)
[2018-10-05] MEDS: KCL 10 MEQ TAB (MICRO K) PO SCH (06:17)
[2018-10-05 06:51] VITALS: BP 136/76
[2018-10-05] MEDS: RT-ALBUTEROL/IPRATROPIUM 3 ML (DUONEB) VIAL INH SCH ×2 (07:41→19:57)
[2018-10-05] MEDS: DICLOFENAC 1% GEL 100 GM (VOLTAREN) TUBE TOP SCH ×4 (09:06→20:08)
[2018-10-05] MEDS: ASPIRIN 81 MG CHEW (CHILDREN'S ASA) PO SCH (09:06)
[2018-10-05] MEDS: LORATADINE (CLARITIN) 10 MG TAB PO SCH (09:06)
[2018-10-05] MEDS: SENNA W/DOCUSATE (SENOKOT S) TABLET PO SCH ×2 (09:07→20:08)
[2018-10-05 09:14] VITALS: BP 79/56
--- NOTE | 2018-10-05 09:14 | NUR ---
BP 79/56, HR 66. AM Cardizem and Lopressor held.
[2018-10-05 10:44] VITALS: BP 102/60
[2018-10-05] MEDS: DILTIAZEM 300 MG (CARDIZEM CD) CAP PO SCH (10:49)
[2018-10-05] MEDS: meTOprolol TARTRATE 50 MG (LOPRESSOR) TAB PO SCH (10:49)
--- NOTE | 2018-10-05 11:18 | NUR ---
BP 102/60, HR 66. Dr. Avila notified of hypotension this AM. Orders to DC Cardizem and decrease Lopressor to 25 MG PO BID- hold for SBP less than 100.
[2018-10-05 11:47] VITALS: BP 117/69
[2018-10-05] MEDS: meTOprolol TARTRATE 25 MG (LOPRESSOR) TABLET PO SCH ×2 (11:47→20:07)
--- NOTE | 2018-10-05 12:25 | Physical Therapy Daily Note ---
PT Daily Note-Current Subjective Agrees to PT and wants to ride the Nu step Transfers Therapy Code Descriptions/Definitions Functional [place] Measure: 0=Not Assessed/NA 4=Minimal Assistance 1=Total Assistance 5=Supervision or Setup 2=Maximal Assistance 6=Modified [place] 3=Moderate Assistance 7=Complete [place] Therapy Quality Codes: 6 Independent with activity with or without an assistive device 5 Patient requires set up or clean up by helper. Patient completes activity by themselves 4 Supervision or touching assist (CGA). [place] provide cues , steadying assist 3 The helper provides less than half the effort to complete the activity 2 The helper provides more than half the effort to complete the activity 1 Dependent. The helper does all the effort to complete an activity 7 Patient refused to complete or attempt activity 9 The patient did not perform the activity before the current illness or injury 88 Not attempted due to Medical conditions or safety concerns Weight Bearing Right Lower Extremity: Right Full Weight Bearing Left Lower Extremity: Left Full Weight Bearing Treatments Provided pt with a wc cushion. Pt propelled himself to the therapy gym 150 ft mod indep. SPT to / from the nu step with max assist; pt able to participate with standing ad transfer. NU Step on level 2 x 15 minutes. Returned to room and pt transferred to the chair with max assist. Feet elevated and needs met post treatment. Assessment Current Status: Good Progress improved ability to come to a stand and participate in a transfer without using a mechanical lift. PT Short Term Goals Short Term Goals Time Frame: Oct 12, 2018 Transfers (B,C,W/C) (FIM): 4 Wheelchair Distance: 150'x2 PT Fdc Goals Fdc Goals PT Fdc Goals Time Frame: Oct 26, 2018 Transfers (B,C,W/C) (FIM): 6 Sit to Lying (QC): 6 Lying-Sitting on Side/Bed(QC): 6 Sit to Stand (QC): 6 Rollin Roll Left to Right (QC): 6 Chair/Oda-aw-Pdhxk Xfer(QC): 6 Car Transfer (QC): 6 Does the Patient Walk: No and Walking Goal IS indicated Gait (FIM): 6 Gait distance (FIM): 3=150 ft Distance: 150 Walk 10 feet (QC): 6 Walk 10ft-Uneven Surface(QC): 6 Walk 50ft with 2 Turns (QC): 6 Walk 150 ft (QC): 6 Gait Level of Assist: 6 Gait Assistive Device: FWW Stairs (FIM): 6 # of Steps: 12 1 Step (curb) (QC): 6 4 Steps (QC): 6 12 Steps (QC): 6 Stairs Level Of Assist: 6 Picking up an Object (QC): 5 PT Plan Problem List Problem List: Activity Tolerance, Functional Strength, Safety, Balance, Gait, Transfer, Bed Mobility Treatment/Plan Treatment Plan: Continue Plan of Care Treatment Plan: Bed Mobility, Concurrent Therapy, Education, Functional Activity Gilbert, Functional Strength, Group Therapy, Gait, Safety, Therapeutic Exercise, Transfers Treatment Duration: Oct 26, 2018 Frequency: At least 5 of 7 days/Wk (IRF) Estimated Hrs Per Day: 1.5 hours per day Patient and/or Family Agrees t: Yes Safety Risks/Education Patient Education: Transfer Techniques, Safety Issues Teaching Recipient: Patient Teaching Methods: Discussion Response to Teaching: Reinforcement Needed Discharge Recommendations Therapy D/C Recommendations: Physical Therapy Home Care Time/GCodes Time In: 940 Time Out: 1010 Total Billed Treatment Time: 30 Total Billed Treatment visit FA 15 EX 15 NERY DALEY PT Oct 05, 2018 12:25
--- NOTE | 2018-10-05 12:59 | PM&R Progress Note ---
Subjective HPI/CC On Admission Date Seen by Provider: Oct 05, 2018 Time Seen by Provider: 11:30 Chief complaint: Severe myopathy from critical illness History of present illness: This is a 78-year-old white male patient of Dr. Parsons who presents after a complex ICU stay which included intubation due to respiratory insufficiency due to recurrent pulmonary hemorrhage requiring airway protection and placed on treatment for hospital acquired pneumonia. Patient is not an anticoagulation candidate at this current time due to the recurrent hemorrhages. Patient is doing extremely well very weak and will require intensive rehabilitation in order to return home. Prior level of functioning was independent with ADLs and ambulation. He does have a history of inflammatory bowel disease of which he has a lot of diarrhea which is chronic. He denies any significant pain and he does have lower extremity edema we have initiated LUIS EDUARDO her for compression therapy. His daughter from [facility] is here visiting him. I checked meds and labs. Blood pressure has been mildly elevated at 160/77 but he is not having any more dysphagia as a complication from intubation and we will discontinue Head catheter and telemetry. Subjective/Events-last exam Improved symptoms and signs of steroid myopathy Sleeping is getting better each night Putting zinc christa on his bottom and that seems to be healing Blood sugars reasonable and were all reviewed so will recheck AC/HS and SSI A Home melatonin taken and he seems to have slept better last night We will recheck for progress next week Cardiology restarted the Lasix for the edema and that is improved along with LUIS EDUARDO's BM+ this morning Blood pressure stable Dr. Parsons help appreciated Crackles on lungs in bases are now resolved Cognition seems to be improved today and no issues per RN either Checked meds and labs Conferred with RN Reviewed therapy notes Dramatically improving and benefitting from intensive therapy and in patient rehab Review of Systems General: Fatigue Pulmonary: Dyspnea Objective Exam Vital Signs Vital Signs Date Time Temp Pulse Resp B/P (MAP) Pulse Ox O2 Delivery O2 Flow Rate FiO2 10/05/18 17:32 Room Air 10/05/18 16:03 98.6 71 16 128/69 (88) 96 09/30/18 02:14 21 Capillary Refill : General Appearance: No Apparent Distress, WD/WN, Chronically ill HEENT: PERRL/EOMI, Normal ENT Inspection, Pharynx Normal, Moist Mucous Membranes Neck: Full Range of Motion, Normal Inspection, Non Tender, Supple Respiratory: Chest Non Tender, Lungs Clear, Normal Breath Sounds, No Accessory Muscle Use, No Respiratory Distress, Decreased Breath Sounds Cardiovascular: No Edema, No Gallop, No JVD, No Murmur, Irregularly Irregular Gastrointestinal: Normal Bowel Sounds, No Organomegaly, No Pulsatile Mass, Non Tender, Soft Back: Normal Inspection, No CVA Tenderness, No Vertebral Tenderness Extremity: Normal Capillary Refill, Normal Inspection, Normal Range of Motion, Non Tender, No Calf Tenderness, No Pedal Edema Neurologic/Psychiatric: Alert, Oriented x3, No Motor/Sensory Deficits, Normal Mood/Affect, Motor Weakness (generalized all extremities 4/5) Skin: Normal Color, Warm/Dry Lymphatic: No Adenopathy Results/Procedures Lab Laboratory Tests 10/05/18 05:40 Patient resulted labs reviewed. FIM Transfers Therapy Code Descriptions/Definitions Functional Cameron Measure: 0=Not Assessed/NA 4=Minimal Assistance 1=Total Assistance 5=Supervision or Setup 2=Maximal Assistance 6=Modified [place] 3=Moderate Assistance 7=Complete Cameron Therapy Quality Codes: 6 Independent with activity with or without an assistive device 5 Patient requires set up or clean up by helper. Patient completes activity by themselves 4 Supervision or touching assist (CGA). [place] provide cues , steadying assist 3 The helper provides less than half the effort to complete the activity 2 The helper provides more than half the effort to complete the activity 1 Dependent. The helper does all the effort to complete an activity 7 Patient refused to complete or attempt activity 9 The patient did not perform the activity before the current illness or injury 88 Not attempted due to Medical conditions or safety concerns Transfers (B, C, W/C) (FIM): 2 Scootin Rollin Roll Left to Right (QC): 2 Supine to/from Sit: 3 Sit to/from Stand: 2 Sit to Lying (QC): 2 Sit to Stand (QC): 1 Chair/Mtp-kh-Ocmei Xfer(QC): 1 Bed to/from Chair: 2 Car Transfer (QC): 88 (Dependent on sit<->stand lift and poor trunk control currently) Gait Training Does the Patient Walk?: No and Walking Goal IS indicated Gait (FIM): 0 Distance (FIM): 0=does not occure Walk 10 feet (QC): 88 Walk 50 ft with 2 Turns(QC): 88 Walk 150 ft (QC): 88 Walking 10ft/uneven surface-QC: 88 Wheelchair Training Does the Pt Use a Wheelchair?: Yes Wheelchair (FIM): 5 Wheelchair Distance: 3=150 ft Distance: 150'x2 Wheelchair Level of Assist: 5 Wheel 50 ft with 2 turns (QC): 5 Wheel 150 ft (QC): 5 Type of Wheelchair: Manual Stair Training Stairs (FIM): 0 1 Step (curb) (QC): 88 4 Steps (QC): 88 12 Steps (QC): 88 Balance Picking up an Object (QC): 88 Mental Status/Objective Comprehension: 6 Expression: 5 Social Interaction: 6 Problem Solvin Memory: 3 ADL-Treatment Feedin Eating (QC): 5 Groomin Oral Hygiene (QC): 6 Bathin (SBA with LH in shower on rolling shower chair.) Bathing Location: L Arm, R Arm, L Upper Leg, R Upper Leg, Chest, Abdomen, Perineal Area Shower/Bathe Self (QC): 4 Upper Extremity Dressin Upper Body Dressing (QC): 4 Lower Extremity Dressin (Pt. able to thread shorts over feet with AE and pull to thighs. Dependent to pull up while on sit-stand. 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 Likely due to steroids, hopefully will completely resolve Plan: Monitor labs Weaned steroids off so hopefully the steroid myopathy will continue to improve O2 Nebs BP management IRF therapy protocols Melatonin home supply Monitor crackles on bases for recurrences (1) Myopathy (2) BRIDGER treated with BiPAP (3) CAD S/P percutaneous coronary angioplasty Onset Date: 12/31/2013 (4) Pacemaker (5) Asthma (6) Hx of CABG (7) Leukocytosis (8) Weakness generalized (9) Anemia (10) COPD (chronic obstructive pulmonary disease) (11) Hypoxemia (12) Edema (13) Ulcerative colitis (14) Fecal incontinence (15) Contraindication to anticoagulation therapy (16) Pulmonary hemorrhage (17) Acute insomnia (18) Leukocytosis KOBI ESTEBAN DO Oct 05, 2018 12:59
[2018-10-05 16:03] VITALS: BP 128/69
--- NOTE | 2018-10-05 16:44 | Progress Note - Cardiology ---
Cardiology SOAP Progress Note Subjective: Feels weak and tired Objective: I&O/Vital Signs 10/05/18 10/05/18 10/05/18 10/05/18 06:51 07:42 09:00 09:14 Temp 98.8 Pulse 69 66 Resp 16 16 B/P (MAP) 136/76 (96) 79/56 (64) Pulse Ox 94 93 96 O2 Delivery Room Air Room Air Room Air Room Air 10/05/18 10/05/18 10/05/18 10:44 11:47 16:03 Temp 98.6 Pulse 66 64 71 Resp 16 16 B/P (MAP) 102/60 (74) 117/69 (85) 128/69 (88) Pulse Ox 96 O2 Delivery Room Air 10/05/18 00:00 Intake Total 510 ml Output Total 875 ml Balance -365 ml Weight (Pounds): 205 Weight (Ounces): 0.0 Weight (Calculated Kilograms): 92.281482 Constitutional: AAO x 3, well-developed, well-nourished Respiratory: No accessory muscle use; other (good bilat air entry, diminished at the bases) Cardiovascular: regular rate-rhythm, S1 and S2, systolic murmur (soft GRETA at card base) Gastrointestional: No tender; soft; No guarding, No rebound; audible bowel sounds Extremities: swelling (mild bilat leg edema); No clubbing, No cyanosis Neurologic/Psychiatric: oriented x 3, grossly intact, power is 5/5 both on sides Skin: No rash on exposed areas, No ulcerations on exposed areas Results/Procedures: Labs Laboratory Tests 10/04/18 18:41: Glucometer 249H 10/04/18 23:51: Glucometer 136H 10/05/18 05:40: White Blood Count 12.9H, Red Blood Count 3.55L, Hemoglobin 10.9L, Hematocrit 33L , Mean Corpuscular Volume 92, Mean Corpuscular Hemoglobin 31, Mean Corpuscular Hemoglobin Concent 33, Red Cell Distribution Width 15.8H, Platelet Count 129L, Mean Platelet Volume 9.8, Neutrophils (%) (Auto) 81H, Lymphocytes (%) (Auto) 12, Monocytes (%) (Auto) 7, Eosinophils (%) (Auto) 0, Basophils (%) (Auto) 0, Neutrophils # (Auto) 10.5H, Lymphocytes # (Auto) 1.5, Monocytes # (Auto) 0.9, Eosinophils # (Auto) 0.1, Basophils # (Auto) 0.0, Sodium Level 135, Potassium Level 3.7, Chloride Level 102, Carbon Dioxide Level 25, Anion Gap 8, Blood Urea Nitrogen 14, Creatinine 0.64, Estimat Glomerular Filtration Rate > 60, BUN/Creatinine Ratio 22, Glucose Level 143H, Calcium Level 8.1L, Corrected Calci um 9.2, Total Bilirubin 0.8, Aspartate Amino Transf (AST/SGOT) 19, Alanine Aminotransferase (ALT/SGPT) 42, Alkaline Phosphatase 74, Total Protein 4.7L, Albumin 2.6L 10/05/18 11:36: Glucometer 196H 10/05/18 16:02: Glucometer 201H Laboratory Tests 10/05/18 05:40 A/P: Assessment: Hemoptysis and pulmonary hemorrhage necessitating discontinuation of Eliquis and aspirin in mid-August 2018; low-dose aspirin reinitiated on 10/01/18 Echo of 09/19/18: LVEF 60-65%, biatrial enlargement, mod MR, mild to mod TR, RVSP 45 mmHg 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 Cardiac cath from December 30, 2013 in which successful GAURI x 2, one to the proximal and one to the mid vessel LAD, was done. 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 Pacemaker currently in the VVIR mode, due to permanent atrial fib. The patient had a pulse generator change out on 12/18/2011. The device is functioning normally per last interrogation of September 23, 2018 (DIMITRIOS estimate 11 months) History of ulcerative colitis, being managed by Dr. Parsons and Dr. Seymour Stroke prophylaxis with Eliquis - currently being held d/t hemoptysis Sleep apnea for which he is following with Dr Mijares - Bi-pap therapy Hyperlipidemia being treated with rosuvastatin. Mild carotid arterial disease that has been followed by Dr. Mcdaniel History of cholecystectomy. Impaired fasting glucose Elevated BMI of approx 30 S/p melanoma removal from the back in 2018, followed by Dr Parsons Plan: * Complex management due to multiple comorbidities * We d/c'd diltiazem and lowered the dose of metoprolol today. This was because of low bp * Monitor labs TOSHA JUNIOR MD FACP FACC CCDS Oct 05, 2018 16:44
[2018-10-05] MEDS: LOSARTAN 25 MG (COZAAR) TAB PO SCH (17:05)
[2018-10-05] MEDS: ACETAMINOPHEN 500 MG TAB (TYLENOL) PO PRN (17:06)
[2018-10-05] MEDS: TAMSULOSIN 0.4 MG (FLOMAX) CAP PO SCH (17:06)
[2018-10-05] MEDS: traZODone 50 MG (DESYREL) TAB PO PRN (20:07)
[2018-10-05] MEDS: MELATONIN 3 MG TABLET PO PRN (20:07)
[2018-10-05] MEDS: MESALAMINE 1.2 GM PO SCH (20:08)
[2018-10-06 05:50] VITALS: BP 119/67
[2018-10-06] MEDS: inSUlin ASPART (NovoLOG) 1 UNIT/0.01 ML (CHARGE PER UNIT) SC SCH ×4 (05:57→21:22)
[2018-10-06] MEDS: PANTOPRAZOLE 40 MG (PROTONIX) TAB PO SCH (07:02)
[2018-10-06] MEDS: KCL 10 MEQ TAB (MICRO K) PO SCH (07:03)
[2018-10-06] MEDS: FUROSEMIDE 40 MG (LASIX) TAB PO SCH (07:03)
[2018-10-06] MEDS: LACTOBACILLUS ACIDOPHILUS (PROBIOTIC) CAPSULE PO SCH ×2 (07:03→17:19)
[2018-10-06] MEDS: RT-ALBUTEROL/IPRATROPIUM 3 ML (DUONEB) VIAL INH SCH ×2 (07:55→19:13)
[2018-10-06] MEDS: LORATADINE (CLARITIN) 10 MG TAB PO SCH (08:17)
[2018-10-06] MEDS: meTOprolol TARTRATE 25 MG (LOPRESSOR) TABLET PO SCH ×2 (08:17→20:16)
[2018-10-06] MEDS: DICLOFENAC 1% GEL 100 GM (VOLTAREN) TUBE TOP SCH ×4 (08:17→21:01)
[2018-10-06] MEDS: ASPIRIN 81 MG CHEW (CHILDREN'S ASA) PO SCH (08:17)
[2018-10-06] MEDS: SENNA W/DOCUSATE (SENOKOT S) TABLET PO SCH ×2 (08:17→20:16)
[2018-10-06 08:19] VITALS: BP 147/69
--- NOTE | 2018-10-06 13:45 | PM&R Progress Note ---
Subjective HPI/CC On Admission Date Seen by Provider: Oct 06, 2018 Time Seen by Provider: 13:00 Chief complaint: Severe myopathy from critical illness History of present illness: This is a 78-year-old white male patient of Dr. Parsons who presents after a complex ICU stay which included intubation due to respiratory insufficiency due to recurrent pulmonary hemorrhage requiring airway protection and placed on treatment for hospital acquired pneumonia. Patient is not an anticoagulation candidate at this current time due to the recurrent hemorrhages. Patient is doing extremely well very weak and will require intensive rehabilitation in order to return home. Prior level of functioning was independent with ADLs and ambulation. He does have a history of inflammatory bowel disease of which he has a lot of diarrhea which is chronic. He denies any significant pain and he does have lower extremity edema we have initiated LUIS EDUARDO her for compression therapy. His daughter from [facility] is here visiting him. I checked meds and labs. Blood pressure has been mildly elevated at 160/77 but he is not having any more dysphagia as a complication from intubation and we will discontinue Head catheter and telemetry. Subjective/Events-last exam Improved symptoms and signs of steroid myopathy but slow progress continues Sleeping is getting better each night Putting zinc christa on his bottom and that seems to be healing Blood sugars reasonable and were all reviewed Cardiology restarted the Lasix for the edema and that is improved along with LUIS EDUARDO's BM+ this morning Blood pressure stable Crackles on lungs in bases are now resolved Checked meds and labs Conferred with RN Reviewed therapy notes Dramatically improving and benefitting from intensive therapy and in patient rehab After rounds RN notified me at 1700 tonight of low-grade fever of 100.4 and not feeling well. Vague complaints but I went ahead and initiated the septic work- up everything was revealed to be stable no elevation in lactic acid chest x-ray was normal was pending on urinalysis results but otherwise everything was stable so we will continue to monitor and I did update Dr. Mijares Review of Systems General: Fatigue Focused Exam Lactate Level 10/06/18 17:42: Lactic Acid Level 1.44 Lactic Acid Level Laboratory Tests Test 10/06/18 17:42 Lactic Acid Level 1.44 MMOL/L (0.50-2.00) Objective Exam Vital Signs Vital Signs Date Time Temp Pulse Resp B/P (MAP) Pulse Ox O2 Delivery O2 Flow Rate FiO2 7/7/19 20:06 70 104/57 (73) 10/06/18 19:13 92 Room Air 10/06/18 18:34 100.0 10/06/18 16:55 16 09/30/18 02:14 21 Capillary Refill : General Appearance: No Apparent Distress, WD/WN, Chronically ill HEENT: PERRL/EOMI, Normal ENT Inspection, Pharynx Normal, Moist Mucous Mem branes Neck: Full Range of Motion, Normal Inspection, Non Tender, Supple Respiratory: Chest Non Tender, Lungs Clear, Normal Breath Sounds, No Accessory Muscle Use, No Respiratory Distress, Decreased Breath Sounds Cardiovascular: No Edema, No Gallop, No JVD, No Murmur, Irregularly Irregular Gastrointestinal: Normal Bowel Sounds, No Organomegaly, No Pulsatile Mass, Non Tender, Soft Back: Normal Inspection, No CVA Tenderness, No Vertebral Tenderness Extremity: Normal Capillary Refill, Normal Inspection, Normal Range of Motion, Non Tender, No Calf Tenderness, No Pedal Edema Neurologic/Psychiatric: Alert, Oriented x3, No Motor/Sensory Deficits, Normal Mood/Affect, Motor Weakness (generalized all extremities 4/5) Skin: Normal Color, Warm/Dry Lymphatic: No Adenopathy Results/Procedures Lab Laboratory Tests 10/06/18 17:42 Patient resulted labs reviewed. FIM Transfers Therapy Code Descriptions/Definitions Functional [place] Measure: 0=Not Assessed/NA 4=Minimal Assistance 1=Total Assistance 5=Supervision or Setup 2=Maximal Assistance 6=Modified [place] 3=Moderate Assistance 7=Complete [place] Therapy Quality Codes: 6 Independent with activity with or without an assistive device 5 Patient requires set up or clean up by helper. Patient completes activity by themselves 4 Supervision or touching assist (CGA). [place] provide cues , steadying assist 3 The helper provides less than half the effort to complete the activity 2 The helper provides more than half the effort to complete the activity 1 Dependent. The helper does all the effort to complete an activity 7 Patient refused to complete or attempt activity 9 The patient did not perform the activity before the current illness or injury 88 Not attempted due to Medical conditions or safety concerns Transfers (B, C, W/C) (FIM): 2 Scootin Rollin Roll Left to Right (QC): 2 Supine to/from Sit: 3 Sit to/from Stand: 2 Sit to Lying (QC): 2 Sit to Stand (QC): 1 Chair/Jcl-gh-Hqifi Xfer(QC): 1 Bed to/from Chair: 2 Car Transfer (QC): 88 (Dependent on sit<->stand lift and poor trunk control currently) Gait Training Does the Patient Walk?: No and Walking Goal IS indicated Gait (FIM): 0 Distance (FIM): 0=does not occure Walk 10 feet (QC): 88 Walk 50 ft with 2 Turns(QC): 88 Walk 150 ft (QC): 88 Walking 10ft/uneven surface-QC: 88 Wheelchair Training Does the Pt Use a Wheelchair?: Yes Wheelchair (FIM): 5 Wheelchair Distance: 3=150 ft Distance: 150'x2 Wheelchair Level of Assist: 5 Wheel 50 ft with 2 turns (QC): 5 Wheel 150 ft (QC): 5 Type of Wheelchair: Manual Stair Training Stairs (FIM): 0 1 Step (curb) (QC): 88 4 Steps (QC): 88 12 Steps (QC): 88 Balance Picking up an Object (QC): 88 Mental Status/Objective Comprehension: 6 Expression: 5 Social Interaction: 6 Problem Solvin Memory: 3 ADL-Treatment Feedin Eating (QC): 5 Groomin Oral Hygiene (QC): 6 Bathin (SBA with LH in shower on rolling shower chair.) Bathing Location: L Arm, R Arm, L Upper Leg, R Upper Leg, Chest, Abdomen, Perineal Area Shower/Bathe Self (QC): 4 Upper Extremity Dressin Upper Body Dressing (QC): 4 Lower Extremity Dressin (Pt. able to thread shorts over feet with AE and pull to thighs. Dependent to pull up while on sit-stand. 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 Likely due to steroids, hopefully will completely resolve Low grade fever? Vague illness symptoms Plan: Monitor labs Weaned steroids off so hopefully the steroid myopathy will continue to improve O2 Nebs BP management IRF therapy protocols Melatonin home supply Monitor crackles on bases for recurrences Reviewed all images and lab results from low grade fever reports and patient stated he did not feel well (1) Myopathy (2) BRIDGER treated with BiPAP (3) CAD S/P percutaneous coronary angioplasty Onset Date: 12/31/2013 (4) Pacemaker (5) Asthma (6) Hx of CABG (7) Leukocytosis (8) Weakness generalized (9) Anemia (10) COPD (chronic obstructive pulmonary disease) (11) Hypoxemia (12) Edema (13) Ulcerative colitis (14) Fecal incontinence (15) Contraindication to anticoagulation therapy (16) Pulmonary hemorrhage (17) Acute insomnia (18) Leukocytosis KOBI ESTEBAN DO Oct 06, 2018 13:45
[2018-10-06] MEDS: ACETAMINOPHEN 500 MG TAB (TYLENOL) PO PRN (15:19)
[2018-10-06 15:26] VITALS: BP 128/62
[2018-10-06 16:55] VITALS: BP 119/71
--- NOTE | 2018-10-06 17:04 | NUR ---
Dr. Saravia notified of fever (100.7) and patient C/O feeling generally unwell (fatigued and tired). New order for CBC, CMP, BNP, UA, chest XRAY, and lactic acid. Patient encouraged to use I/S at bedside.
[2018-10-06] MEDS: LOSARTAN 25 MG (COZAAR) TAB PO SCH (17:19)
[2018-10-06] MEDS: TAMSULOSIN 0.4 MG (FLOMAX) CAP PO SCH (17:19)
--- NOTE | 2018-10-06 17:27 | Diagnostic Imaging Report ---
INDICATION: Fever. COMPARISON STUDY: Chest from September 30. FINDINGS: Frontal view of the chest demonstrates cardiac pacemaker and previous coronary artery bypass graft changes. Heart size is upper normal. Lungs are clear. There are no pleural effusions. IMPRESSION: There are no acute findings. Dictated by: Dictated on workstation # [id number]
[2018-10-06 17:51] LABS: BASOPHILS % (AUTO) 0 % (0-10); EOSINOPHILS # (AUTO) 0.1 10^3/uL (0.0-0.3); EOSINOPHILS % (AUTO) 1 % (0-10); HEMATOCRIT 36 % (40-54); HEMOGLOBIN 12.3 G/DL (13.3-17.7); LYMPHOCYTES # (AUTO) 1.3 X 10^3 (1.0-4.0); LYMPHOCYTES % (AUTO) 11 % (12-44); MEAN CORPUSCULAR HEMOGLOBIN 31 PG (25-34); MEAN CORPUSCULAR HGB CONC 34 G/DL (32-36); MEAN CORPUSCULAR VOLUME 91 FL (80-99); MEAN PLATELET VOLUME 9.9 FL (7.4-10.4); MONOCYTES # (AUTO) 0.9 X 10^3 (0.0-1.0); MONOCYTES % (AUTO) 7 % (0-12); NEUTROPHILS # (AUTO) 9.5 X 10^3 (1.8-7.8); NEUTROPHILS % (AUTO) 81 % (42-75); PLATELET COUNT 118 10^3/uL (130-400); RED CELL DISTRIBUTION WIDTH 15.9 % (10.0-14.5); WHITE BLOOD COUNT 11.7 10^3/uL (4.3-11.0)
--- NOTE | 2018-10-06 17:56 | NUR ---
Dr. Avila here with orders to decrease Lasix to 20 MG PO Q48H and change Potassium to 10 MEQ PO Q48 hours. Next dose on 10/08/18.
[2018-10-06 18:08] LABS: ALANINE AMINOTRANSFERASE 51 U/L (0-55); ALBUMIN 3.2 GM/DL (3.2-4.5); ALKALINE PHOSPHATASE 92 U/L (40-136); BILIRUBIN,TOTAL 0.9 MG/DL (0.1-1.0); BUN/CREATININE RATIO 14; CALCIUM 8.7 MG/DL (8.5-10.1); CARBON DIOXIDE 25 MMOL/L (21-32); CHLORIDE 99 MMOL/L (98-107); CREATININE SERUM 0.72 MG/DL (0.60-1.30); GFR ESTIMATED > 60; GLUCOSE 143 MG/DL (70-105); POTASSIUM 3.6 MMOL/L (3.6-5.0); SODIUM 135 MMOL/L (135-145)
--- NOTE | 2018-10-06 18:48 | NUR ---
Dr. Saravia and Dr. Mijares informed of lab/chest XRAY results. No new orders rec'd.
--- NOTE | 2018-10-06 18:55 | Progress Note - Cardiology ---
Cardiology SOAP Progress Note Subjective: Feels weak and tired for the last 2 days No cp or palp or syncope No shortness of breath at rest Objective: I&O/Vital Signs 10/06/18 10/06/18 10/06/18 10/06/18 07:55 08:19 09:51 15:26 Temp 100.4 Pulse 78 72 Resp 16 B/P (MAP) 147/69 (95) 128/62 (84) Pulse Ox 93 97 O2 Delivery Room Air Room Air Room Air 10/06/18 10/06/18 10/06/18 16:55 18:02 18:34 Temp 100.7 100.0 Pulse 85 Resp 16 B/P (MAP) 119/71 (87) Pulse Ox 97 O2 Delivery Room Air Room Air 10/06/18 00:00 Intake Total 730 ml Output Total 1100 ml Balance -370 ml Weight (Pounds): 205 Weight (Ounces): 0.0 Weight (Calculated Kilograms): 92.626246 Constitutional: AAO x 3, well-developed, well-nourished Respiratory: No accessory muscle use; other (good bilat air entry, diminished at the bases) Cardiovascular: regular rate-rhythm, S1 and S2, systolic murmur (soft GRETA at card base) Gastrointestional: No tender; soft; No guarding, No rebound; audible bowel sounds Extremities: swelling (mild bilat leg edema); No clubbing, No cyanosis Neurologic/Psychiatric: oriented x 3, grossly intact, power is 5/5 both on sides Skin: No rash on exposed areas, No ulcerations on exposed areas Results/Procedures: Labs Laboratory Tests 10/05/18 20:14: Glucometer 240H 10/06/18 05:21: Glucometer 134H 10/06/18 11:05: Glucometer 148H 10/06/18 15:22: Glucometer 181H 10/06/18 17:42: White Blood Count 11.7H, Red Blood Count 3.99L, Hemoglobin 12.3L, Hematocrit 36L , Mean Corpuscular Volume 91, Mean Corpuscular Hemoglobin 31, Mean Corpuscular Hemoglobin Concent 34, Red Cell Distribution Width 15.9H, Platelet Count 118L, Mean Platelet Volume 9.9, Neutrophils (%) (Auto) 81H, Lymphocytes (%) (Auto) 11L , Monocytes (%) (Auto) 7, Eosinophils (%) (Auto) 1, Basophils (%) (Auto) 0, Neutrophils # (Auto) 9.5H, Lymphocytes # (Auto) 1.3, Monocytes # (Auto) 0.9, Eosinophils # (Auto) 0.1, Basophils # (Auto) 0.0, Sodium Level 135, Potassium Level 3.6, Chloride Level 99, Carbon Dioxide Level 25, Anion Gap 11, Blood Urea Nitrogen 10, Creatinine 0.72, Estimat Glomerular Filtration Rate > 60, BUN/Creatinine Ratio 14, Glucose Level 143H, Lactic Acid Level 1.44, Calcium Level 8.7, Corrected Calcium 9.3, Total Bilirubin 0.9, Aspartate Amino Transf (AST/SGOT) 28, Alanine Aminotransferase (ALT/SGPT) 51, Alkaline Phosphatase 92, B-Type Natriuretic Peptide 342.8H, Total Protein 6.0L, Albumin 3.2 A/P: Assessment: Weakness and malaise and low grade fever and leucocytosis, systemic infection suspected, managed by Dr Saravia Relatively low bp lately necessitating d/c diltiazem and reduction in beta- sita. BP has since been better Hemoptysis and pulmonary hemorrhage necessitating discontinuation of Eliquis and aspirin in mid-August 2018; low-dose aspirin reinitiated on 10/01/18 Echo of 09/19/18: LVEF 60-65%, biatrial enlargement, mod MR, mild to mod TR, RVSP 45 mmHg 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 Cardiac cath from December 30, 2013 in which successful GAURI x 2, one to the proximal and one to the mid vessel LAD, was done. 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 Pacemaker currently in the VVIR mode, due to permanent atrial fib. The patient had a pulse generator change out on 12/18/2011. The device is functioning normally per last interrogation of September 23, 2018 (DIMITRIOS estimate 11 months) History of ulcerative colitis, being managed by Dr. Parsons and Dr. Seymour Stroke prophylaxis with Eliquis - currently being held d/t hemoptysis Sleep apnea for which he is following with Dr Mijares - Bi-pap therapy Hyperlipidemia being treated with rosuvastatin. Mild carotid arterial disease that has been followed by Dr. Mcdaniel History of cholecystectomy. Impaired fasting glucose Elevated BMI of approx 30 S/p melanoma removal from the back in 2018, followed by Dr Parsons Plan: * Has had clinical deterioration since 10/04/18 * Complex management due to multiple comorbidities * Reduce furosemide and supplemental K (because of lack of edema or clinical evidence of CHF) * Monitor labs TOSHA JUNIOR MD FACP FACC CCDS Oct 06, 2018 18:55
[2018-10-06 20:06] VITALS: BP 104/57
[2018-10-06] MEDS: MESALAMINE 1.2 GM PO SCH (20:15)
[2018-10-06 20:35] LABS: BILIRUBIN,URINE NEGATIVE (NEGATIVE); CLARITY,URINE CLEAR; COLOR,URINE YELLOW; GLUCOSE, URINE (UA) 1+ (NEGATIVE); KETONES,URINE NEGATIVE (NEGATIVE); LEUKOCYTE ESTERASE ,URINE 1+ (NEGATIVE); NITRITE,URINE NEGATIVE (NEGATIVE); PH,URINE 7 (5-9); PROTEIN,URINE 2+ (NEGATIVE); UROBILINOGEN,URINE 1 MG/DL (NORMAL)
[2018-10-06 20:54] LABS: BACTERIA,URINE NEGATIVE /HPF; SQUAMOUS EPITHELIAL CELL,UR RARE /HPF
[2018-10-07] MEDS: inSUlin ASPART (NovoLOG) 1 UNIT/0.01 ML (CHARGE PER UNIT) SC SCH ×4 (05:24→22:37)
[2018-10-07 05:35] VITALS: BP 116/68
[2018-10-07] MEDS: PANTOPRAZOLE 40 MG (PROTONIX) TAB PO SCH (05:37)
[2018-10-07] MEDS: LACTOBACILLUS ACIDOPHILUS (PROBIOTIC) CAPSULE PO SCH ×2 (05:37→18:46)
[2018-10-07 06:16] LABS: BASOPHILS % (AUTO) 0 % (0-10); EOSINOPHILS # (AUTO) 0.1 10^3/uL (0.0-0.3); EOSINOPHILS % (AUTO) 1 % (0-10); HEMATOCRIT 32 % (40-54); HEMOGLOBIN 10.6 G/DL (13.3-17.7); LYMPHOCYTES # (AUTO) 1.3 X 10^3 (1.0-4.0); LYMPHOCYTES % (AUTO) 14 % (12-44); MEAN CORPUSCULAR HEMOGLOBIN 30 PG (25-34); MEAN CORPUSCULAR HGB CONC 33 G/DL (32-36); MEAN CORPUSCULAR VOLUME 91 FL (80-99); MEAN PLATELET VOLUME 9.8 FL (7.4-10.4); MONOCYTES # (AUTO) 0.7 X 10^3 (0.0-1.0); MONOCYTES % (AUTO) 7 % (0-12); NEUTROPHILS # (AUTO) 7.3 X 10^3 (1.8-7.8); NEUTROPHILS % (AUTO) 78 % (42-75); PLATELET COUNT 113 10^3/uL (130-400); RED CELL DISTRIBUTION WIDTH 15.8 % (10.0-14.5); WHITE BLOOD COUNT 9.3 10^3/uL (4.3-11.0)
[2018-10-07] MEDS: RT-ALBUTEROL/IPRATROPIUM 3 ML (DUONEB) VIAL INH SCH ×2 (06:35→19:22)
[2018-10-07 06:41] LABS: ALANINE AMINOTRANSFERASE 41 U/L (0-55); ALBUMIN 2.7 GM/DL (3.2-4.5); ALKALINE PHOSPHATASE 80 U/L (40-136); BILIRUBIN,TOTAL 0.9 MG/DL (0.1-1.0); BUN/CREATININE RATIO 17; CALCIUM 8.2 MG/DL (8.5-10.1); CARBON DIOXIDE 26 MMOL/L (21-32); CHLORIDE 99 MMOL/L (98-107); GFR ESTIMATED > 60; GLUCOSE 146 MG/DL (70-105); POTASSIUM 3.4 MMOL/L (3.6-5.0); SODIUM 133 MMOL/L (135-145); TOTAL PROTEIN 5.3 GM/DL (6.4-8.2)
[2018-10-07] MEDS ORDERED: KCL 20 MEQ TAB (K-DUR) PO NR (08:06)
[2018-10-07 08:13] LABS: MAGNESIUM 1.3 MG/DL (1.8-2.4); PHOSPHORUS 2.4 MG/DL (2.3-4.7)
--- NOTE | 2018-10-07 08:58 | Physical Therapy Daily Note ---
PT Daily Note-Current Subjective Patient in bed pre tx, agrees to PT, has no complaints of pain at rest. States he was ill over the weekend and is still a little weak. Appearance Patient in wheelchair at bedside post tx with nurse call, phone, tray, all needs met. Mental Status Patient Orientation: Normal For Age Transfers Therapy Code Descriptions/Definitions Functional [place] Measure: 0=Not Assessed/NA 4=Minimal Assistance 1=Total Assistance 5=Supervision or Setup 2=Maximal Assistance 6=Modified [place] 3=Moderate Assistance 7=Complete [place] Therapy Quality Codes: 6 Independent with activity with or without an assistive device 5 Patient requires set up or clean up by helper. Patient completes activity by themselves 4 Supervision or touching assist (CGA). [place] provide cues , steadying assist 3 The helper provides less than half the effort to complete the activity 2 The helper provides more than half the effort to complete the activity 1 Dependent. The helper does all the effort to complete an activity 7 Patient refused to complete or attempt activity 9 The patient did not perform the activity before the current illness or injury 88 Not attempted due to Medical conditions or safety concerns Transfers (B, C, W/C) (FIM): 2 Scootin Rollin Supine to/from Sit: 4 Sit to/from Stand: 2 Bed to/from Chair: 2 Patient can now perform supine <-> sit with min assist but still needs max assist to stand even from an elevated surface. Needs cues for hand placement often. Patient stood in the parallel bars x3 for 20-30 seconds each time. Weight Bearing Right Lower Extremity: Right Full Weight Bearing Left Lower Extremity: Left Full Weight Bearing Wheelchair Training Does the Pt Use a Wheelchair?: Yes Wheelchair (FIM): 5 Distance: 150'x2 Wheelchair Level of Assist: 5 Type of Wheelchair: Manual Exercises Supine Ex: Bridging, Quad Set, Glut sets, Heel Slides, Straight leg raise (only x10), Hip abd/add Supine Reps: 15 Seated Therapy Exercises: Ankle pumps, Hip flexion, Hip abd/add (with pillow and RTB) Seated Reps: 15 LAQ alternating for 5 min Treatments LE exercise, bed mobility and transfers, standing, wheelchair training Assessment Current Status: Fair Progress Patient seemed to be a little weaker this morning due to being ill over the weekend but at the same time he performed supine <-> sit with less assist. PT Short Term Goals Short Term Goals Time Frame: Oct 12, 2018 Transfers (B,C,W/C) (FIM): 4 Wheelchair Distance: 150'x2 PT Business Performance Manager Goals Mcfp Goals PT Business Performance Manager Goals Time Frame: Oct 26, 2018 Transfers (B,C,W/C) (FIM): 6 Sit to Lying (QC): 6 Lying-Sitting on Side/Bed(QC): 6 Sit to Stand (QC): 6 Rollin Roll Left to Right (QC): 6 Chair/Uzk-zf-Mbgcg Xfer(QC): 6 Car Transfer (QC): 6 Does the Patient Walk: No and Walking Goal IS indicated Gait (FIM): 6 Gait distance (FIM): 3=150 ft Distance: 150 Walk 10 feet (QC): 6 Walk 10ft-Uneven Surface(QC): 6 Walk 50ft with 2 Turns (QC): 6 Walk 150 ft (QC): 6 Gait Level of Assist: 6 Gait Assistive Device: FWW Stairs (FIM): 6 # of Steps: 12 1 Step (curb) (QC): 6 4 Steps (QC): 6 12 Steps (QC): 6 Stairs Level Of Assist: 6 Picking up an Object (QC): 5 PT Plan Problem List Problem List: Activity Tolerance, Functional Strength, Safety, Balance, Gait, Transfer, Bed Mobility, ROM Treatment/Plan Treatment Plan: Continue Plan of Care Treatment Plan: Bed Mobility, Concurrent Therapy, Education, Functional Activity [place], Functional Strength, Group Therapy, Gait, Safety, Therapeutic Exercise, Transfers Treatment Duration: Oct 26, 2018 Frequency: At least 5 of 7 days/Wk (IRF) Estimated Hrs Per Day: 1.5 hours per day Patient and/or Family Agrees t: Yes Safety Risks/Education Patient Education: Transfer Techniques, Correct Positioning, W/C Management, Safety Issues Teaching Recipient: Patient Teaching Methods: Demonstration, Discussion Response to Teaching: Reinforcement Needed Time/GCodes Time In: 0800 Time Out: 0900 Total Billed Treatment Time: 60 Total Billed Treatment 1 visit [facility] 15' EX 30' FA 15' MARIA ELENA ESQUIVEL PT Oct 07, 2018 08:58
--- NOTE | 2018-10-07 09:04 | PM&R Progress Note ---
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 Parsons who presents after a complex ICU stay which included intubation due to respiratory insufficiency due to recurrent pulmonary hemorrhage requiring airway protection and placed on treatment for hospital acquired pneumonia. Patient is not an anticoagulation candidate at this current time due to the recurrent hemorrhages. Patient is doing extremely well very weak and will require intensive rehabilitation in order to return home. Prior level of functioning was independent with ADLs and ambulation. He does have a history of inflammatory bowel disease of which he has a lot of diarrhea which is chronic. He denies any significant pain and he does have lower extremity edema we have initiated LUIS EDUARDO garciae for compression therapy. His daughter from [facility] is here visiting him. I checked meds and labs. Blood pressure has been mildly elevated at 160/77 but he is not having any more dysphagia as a complication from intubation and we will discontinue Head catheter and telemetry. Subjective/Events-last exam He is a bit confused at night but not terribly bad. Had an episode of the fever yesterday but he has been afebrile since. White count is now normal for the first time at 9.3. Hgb 10.6. Potassium of 3.[address] Mijares supplemented that. Hgb is 10.6 Creatinine is 0.70. Upper body strength is improving but lower extremities are still very weak, he may even be wheelchair bound when he goes home so will evaluate the possibility of that for him to return home. Conferred with RN Checked meds and labs. Review of Systems General: Fatigue Pulmonary: Dyspnea Musculoskeletal: other (muscle weakness of legs) Focused Exam Lactate Level 10/06/18 17:42: Lactic Acid Level 1.44 Objective Exam Vital Signs Vital Signs Date Time Temp Pulse Resp B/P (MAP) Pulse Ox O2 Delivery O2 Flow Rate FiO2 10/07/18 12:26 99.4 10/07/18 09:20 88 20 100/66 (77) 97 Room Air Capillary Refill : General Appearance: No Apparent Distress, WD/WN, Chronically ill HEENT: PERRL/EOMI, Normal ENT Inspection, Pharynx Normal, Moist Mucous Membranes Neck: Full Range of Motion, Normal Inspection, Non Tender, Supple Respiratory: Chest Non Tender, Lungs Clear, Normal Breath Sounds, No Accessory Muscle Use, No Respiratory Distress, Crackles (LLL subtle), Decreased Breath Sounds Cardiovascular: No Edema, No Gallop, No JVD, No Murmur, Irregularly Irregular Gastrointestinal: Normal Bowel Sounds, No Organomegaly, No Pulsatile Mass, Non Tender, Soft Back: Normal Inspection, No CVA Tenderness, No Vertebral Tenderness Extremity: Normal Capillary Refill, Normal Inspection, Normal Range of Motion, Non Tender, No Calf Tenderness, No Pedal Edema Neurologic/Psychiatric: Alert, Oriented x3, No Motor/Sensory Deficits, Normal Mood/Affect, Motor Weakness (generalized all extremities 4/5) Skin: Normal Color, Warm/Dry Lymphatic: No Adenopathy Results/Procedures Lab Laboratory Tests 10/06/18 17:42 10/07/18 05:50 Patient resulted labs reviewed. FIM Transfers Therapy Code Descriptions/Definitions Functional [place] Measure: 0=Not Assessed/NA 4=Minimal Assistance 1=Total Assistance 5=Supervision or Setup 2=Maximal Assistance 6=Modified [place] 3=Moderate Assistance 7=Complete [place] Therapy Quality Codes: 6 Independent with activity with or without an assistive device 5 Patient requires set up or clean up by helper. Patient completes activity by themselves 4 Supervision or touching assist (CGA). [place] provide cues , steadying assist 3 The helper provides less than half the effort to complete the activity 2 The helper provides more than half the effort to complete the activity 1 Dependent. The helper does all the effort to complete an activity 7 Patient refused to complete or attempt activity 9 The patient did not perform the activity before the current illness or injury 88 Not attempted due to Medical conditions or safety concerns Transfers (B, C, W/C) (FIM): 2 Scootin Rollin Roll Left to Right (QC): 2 Supine to/from Sit: 4 Sit to/from Stand: 2 Sit to Lying (QC): 2 Sit to Stand (QC): 1 Chair/Mxv-ag-Yefwu Xfer(QC): 1 Bed to/from Chair: 2 Car Transfer (QC): 88 (Dependent on sit<->stand lift and poor trunk control currently) Gait Training Does the Patient Walk?: No and Walking Goal IS indicated Gait (FIM): 0 Distance (FIM): 0=does not occure Walk 10 feet (QC): 88 Walk 50 ft with 2 Turns(QC): 88 Walk 150 ft (QC): 88 Walking 10ft/uneven surface-QC: 88 Wheelchair Training Does the Pt Use a Wheelchair?: Yes Wheelchair (FIM): 5 Wheelchair Distance: 3=150 ft Distance: 150'x2 Wheelchair Level of Assist: 5 Wheel 50 ft with 2 turns (QC): 5 Wheel 150 ft (QC): 5 Type of Wheelchair: Manual Stair Training Stairs (FIM): 0 1 Step (curb) (QC): 88 4 Steps (QC): 88 12 Steps (QC): 88 Balance Picking up an Object (QC): 88 Mental Status/Objective Comprehension: 6 Expression: 5 Social Interaction: 6 Problem Solvin Memory: 3 ADL-Treatment Feedin Eating (QC): 5 Groomin Oral Hygiene (QC): 6 Bathin (SBA with LH in shower on rolling shower chair.) Bathing Location: L Arm, R Arm, L Upper Leg, R Upper Leg, Chest, Abdomen, Perineal Area Shower/Bathe Self (QC): 4 Upper Extremity Dressin Upper Body Dressing (QC): 4 Lower Extremity Dressin (Pt. able to thread shorts over feet with AE and pull to thighs. Dependent to pull up while on sit-stand. 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 Likely due to steroids, hopefully will completely resolve Low grade fever? Vague illness symptoms? now resolved Hypokalemia Plan: Monitor labs Weaned steroids off so hopefully the steroid myopathy will continue to improve O2 Nebs BP management IRF therapy protocols Melatonin home supply Monitor crackles on bases for recurrences Replace potassium (1) Myopathy (2) BRIDGER treated with BiPAP (3) CAD S/P percutaneous coronary angioplasty Onset Date: 12/31/2013 (4) Pacemaker (5) Asthma (6) Hx of CABG (7) Leukocytosis (8) Weakness generalized (9) Anemia (10) COPD (chronic obstructive pulmonary disease) (11) Hypoxemia (12) Edema (13) Ulcerative colitis (14) Fecal incontinence (15) Contraindication to anticoagulation therapy (16) Pulmonary hemorrhage (17) Acute insomnia (18) Leukocytosis KOBI ESTEBAN DO Oct 07, 2018 09:04
[2018-10-07] MEDS: LORATADINE (CLARITIN) 10 MG TAB PO SCH (09:14)
[2018-10-07] MEDS: ASPIRIN 81 MG CHEW (CHILDREN'S ASA) PO SCH (09:14)
[2018-10-07] MEDS: SENNA W/DOCUSATE (SENOKOT S) TABLET PO SCH ×2 (09:15→21:00)
[2018-10-07] MEDS: DICLOFENAC 1% GEL 100 GM (VOLTAREN) TUBE TOP SCH ×4 (09:16→22:32)
[2018-10-07 09:18] VITALS: BP 93/63
[2018-10-07 09:20] VITALS: BP 100/66
[2018-10-07] MEDS: meTOprolol TARTRATE 25 MG (LOPRESSOR) TABLET PO SCH ×2 (09:26→21:00)
--- NOTE | 2018-10-07 10:49 | NUR ---
LOCOMOTIVE ENGINEER sent updated clinical information to patient's insurance provider, [facility] requesting additional days.
--- NOTE | 2018-10-07 11:27 | Occupational Ther Daily Note ---
OT Current Status-Daily Note Subjective Pt. reports pain in hamstrings with movement of leaning forward in chair. Pain subsides when he leans back. No pain level noted. Appearance Pt. up in chair. Reports that he has bathed at sink and is in clean clothes. Agrees to work with OT in therapy gym. Mental Status/Objective Patient Orientation: Person, Place Therapy Code Descriptions/Definitions Functional [place] Measure: 0=Not Assessed/NA 4=Minimal Assistance 1=Total Assistance 5=Supervision or Setup 2=Maximal Assistance 6=Modified [place] 3=Moderate Assistance 7=Complete [place] ADL-Treatment Therapy Code Descriptions/Definitions Functional [place] Measure: 0=Not Assessed/NA 4=Minimal Assistance 1=Total Assistance 5=Supervision or Setup 2=Maximal Assistance 6=Modified [place] 3=Moderate Assistance 7=Complete [place] Therapy Quality Codes: 6 Independent with activity with or without an assistive device 5 Patient requires set up or clean up by helper. Patient completes activity by themselves 4 Supervision or touching assist (CGA). [place] provide cues , steadying assist 3 The helper provides less than half the effort to complete the activity 2 The helper provides more than half the effort to complete the activity 1 Dependent. The helper does all the effort to complete an activity 7 Patient refused to complete or attempt activity 9 The patient did not perform the activity before the current illness or injury 88 Not attempted due to Medical conditions or safety concerns Transfers (B, C, W/C) (FIM): 1 Other Treatment Pt. able to self propel wheelchair to therapy gym. Worked on series of techniques to push up from chair and work on core strength. Pt. has great difficulty with this. Pt. unable to push up from chair to clear space between chair and bottom. Pt. is able to engage arms, glutes, quads, but does not have the strength to engage in a stance. Worked on core exercises while seated in chair. Removed arm rests and worked on trunk rotation, trunk flexion/extension, etc. Pt. completed 7 minutes on arm bike to increase overall strength and endurance. Self propelled back to room in wheelchair and transferred via sit- stand lift to bed. All needs met in bed. Education OT Patient Education: Correct positioning, Exercise program, Modified ADL techniques, Progress toward Goal/Update tx plan, Purpose of tx/functional activities, Reviewed precautions, Rehab process, Transfer techniques Teaching Recipient: Patient Teaching Methods: Demonstration, Discussion Response to Teaching: Verbalize Understanding, Return Demonstration OT Short Term Goals Short Term Goals Time Frame: Oct 04, 2018 Grooming(FIM): 4 Bathing(FIM): 3 Upper Body Dressing(FIM): 4 Lower Body Dressing(FIM): 3 Toileting(FIM): 3 Transfers (B,C,W/C) (FIM): 4 Toilet/Commode Transfer(FIM): 3 Additional Short Term Goals: 1-Demonstrate ADL Tasks, 2-Verbalize Understanding, 3-ImproveStrength/Gilbert 1=Demonstrate adherence to instructed precautions during ADL tasks. 2=Patient will verbalize/demonstrate understanding of assistive devices/modifications for ADL. 3=Patient will improve strength/tolerance for activity to enable patient to perform ADL's. OT Payroll Clerk Goals Intermediate Goals Time Frame: Oct 25, 2018 Eating (FIM): 6 Eating (QC): 6 Groomin Oral Hygiene (QC): 6 Bathing(FIM): 5 Shower/Bathe Self (QC): 5 Upper Body Dressing(FIM): 5 Upper Body Dressing (QC): 5 Lower Body Dressing(FIM): 5 Lower Body Dressing (QC): 5 On/Off Footwear (QC): 5 Toileting(FIM): 5 Toileting Hygiene (QC): 5 Toilet/Commode Transfer(FIM): 5 Toilet/Commode Transfer (QC): 5 Shower Transfer(FIM): 5 Additional Goals: 1-Demonstrate ADL Tasks, 2-Verbalize Understanding, 3- ImproveStrength/Gilbert 1=Demonstrate adherence to instructed precautions during ADL tasks. 2=Patient will verbalize/demonstrate understanding of assistive devices/modifications for ADL. 3=Patient will improve strength/tolerance for activity to enable patient to perform ADL's. OT Education/Plan Problem List/Assessment Assessment: Decreased Activ Tolerance, Decreased UE Strength, Dependent Transf ers, Impaired Bed Mobility, Impaired Cognition, Impaired Funct Balance, Impaired I ADL's, Impaired Self-Care Skills Pt demonstrates decreased mobility, strength, activity tolerance, and ADL functioning. Pt to benefit from skilled OT intervention for ADL training, transfers, strengthening, and home safety education to increase level of independence and allow safe discharge home. Discharge Recommendations Plan/Recommendations: Continue POC Treatment Plan/Plan of Care Treatment,Training & Education: Yes Patient would benefit from OT for education, treatment and training to promote independence in ADL's, mobility, safety and/or upper extremity function for ADL's. Plan of Care: ADL Retraining, Functional Mobility, Group Exercise/Act as Ind, UE Funct Exercise/Act Treatment Duration: Oct 25, 2018 Frequency: At least 5 of 7 days/Wk (IRF) Estimated Hrs Per Day: 1.5 hours per day Agreement: Yes Rehab Potential: Fair Time/GCodes Start Time: 09:30 Stop Time: 10:15 Total Time Billed (hr/min): 45 Billed Treatment Time 1, FA x 30minutes, Ex x 15minutes ANUARG HENRIQUEZ OT Oct 07, 2018 11:27
[2018-10-07] MEDS: MAGNESIUM 1 GM/100 ML IVPB 100 ML IV SCH ×2 (12:29→14:39)
[2018-10-07] MEDS ORDERED: MAGNESIUM 1 GM/100 ML IVPB 100 ML IV ONE (14:30)
--- NOTE | 2018-10-07 14:40 | Therapy Group Daily Note ---
Therapy Daily Group Note Patient Education Topic Exercises (purpose and benefit of each exercise) Exercises LE Seated Exercise, Stretching (deep breathing), UE Exercise Session Ratio (pt:therapist): 4:1 Goal of Session: UE/LE Strengthing, Other (list) Goal of this session is to allow interpatient interaction to facilitate discussions of how each patient deals differently with different diagnosis as well as to encourage one another with their personal stories. In addition, focus on gross strength and mobiltiy that is often lost while hospitalized. Goal Met for this Session: Yes Pt Benefit of Group: Increased Functional Strength, Socialization pt interacted with other patients and reports he finds the social aspect very beneficial in his overall affect and will to continue to get stronger. Other/Notes UE and LE ther ex performed for gross muscle groups ROM and functional strength; also performed ther ex to promote lung expansion through scap squeeze and deep b reathing and overhead reach. Education provided on the importance of ther ex and how it facilitates functional ROM and deep breathing to reduce the risk of pneumonia. Each patient had a specific exercise in which they were responsible for explaining and demonstrating to the group for exercise. The patient also counted out the number of reps to promote reading comprehension, demonstration and counting Pt is interactive, laughs, participates and encourages others around him. Start Time: 12:50 Stop Time: 14:00 Total Billed Treatment Time: 70 Total Billed Treatment visit GRP 70 NERY DALEY PT Oct 07, 2018 14:40
--- NOTE | 2018-10-07 16:41 | NUR ---
Notified Dr. Saravia & Dr. Mijares of fever.
--- NOTE | 2018-10-07 16:45 | Speech Therapy Daily Note ---
Speech Daily Progress Note Subjective Date Seen by Provider: Oct 07, 2018 Time Seen by Provider: 00:30 The patient was resting in his bed when I entered his room. Objective The patient completed a series of memory tasks with 85% accuracy given decreased verbal cues. Assessment Assessment Current Status: Good Progress Treatment Plan Continue Plan of Care Communication Comprehension: 6 Expression: 5 Social Cognition Social Interaction: 6 Problem Solvin Memory: 3 Speech Short Term Goals Short Term Goals Short Term Goals 1) The patient will complete memory tasks at 80% or greater with minimal verbal cues. 2) The patient will complete problem solving tasks at 80% or greater with minimal verbal cues. 3) The patient will complete safety awareness tasks at 80% or greater with minimal verbal cues. Speech Validation Leader Goals Validation Leader Goals The patient will increase cognitive skills for safety and independence. Speech-Plan Patient/Family Goals Patient/Family Goals: The patient plans to return home with his upon rehab discharge. Treatment Plan Speech Therapy Treatment Plan: Continue Plan of Care The patient is making progress. Treatment Duration: Oct 11, 2018 Frequency: 4 times per week Estimated Hrs Per Day: .5 hour per day Rehab Potential: Fair Barriers to Learning: Cognitive deficits Pt/Family Agrees to Plan: Yes Safety Risks/Education Teaching Recipient: Patient Teaching Methods: Discussion Response to Teaching: Verbalize Understanding Education Topics Provided: Continued safety and communication of his wants/needs. Time Speech Therapy Time In: 16:00 Speech Therapy Time Out: 16:30 Total Billed Time: 30 Billed Treatment Time [address] Oct 07, 2018 16:45
[2018-10-07] MEDS ORDERED: VANCOMYCIN INJECTION 0.1 MG in NS (IVPB) 250 ML IV SCH (17:00)
[2018-10-07] MEDS ORDERED: PIPERACILLIN/TAZOBACTAM (BULK) 4.5 GM in NS (IVPB) 100 ML IV ONE (17:00)
[2018-10-07 17:14] LABS: BILIRUBIN,URINE NEGATIVE (NEGATIVE); CLARITY,URINE CLEAR; COLOR,URINE YELLOW; GLUCOSE, URINE (UA) 1+ (NEGATIVE); KETONES,URINE NEGATIVE (NEGATIVE); LEUKOCYTE ESTERASE ,URINE NEGATIVE (NEGATIVE); NITRITE,URINE NEGATIVE (NEGATIVE); PH,URINE 6 (5-9); PROTEIN,URINE 2+ (NEGATIVE); UROBILINOGEN,URINE 4 MG/DL (NORMAL)
[2018-10-07] MEDS ORDERED: PIPERACILLIN/TAZO 4.5 GM/NS 100 ML IV NR ×2 (17:15)
[2018-10-07 17:21] LABS: BACTERIA,URINE NEGATIVE /HPF; WBC,URINE RARE /HPF
--- NOTE | 2018-10-07 17:25 | Pulmonary Progress Note ---
Subjective Time Seen by a Provider: 16:04 Subjective/Events-last exam Pt state he feels better c/w last night. Sepsis Event Evaluation Height, Weight, BMI Height: 5'6.00" Weight: 205lbs. 0.0oz. 92.049445mn; 33.1 BMI Method:Stated Focused Exam Lactate Level 10/06/18 17:42: Lactic Acid Level 1.44 Exam Exam Vital Signs Date Time Temp Pulse Resp B/P (MAP) Pulse Ox O2 Delivery O2 Flow Rate FiO2 10/07/18 17:16 100.9 10/07/18 16:55 100.8 10/07/18 16:39 102.0 10/07/18 16:36 101.0 10/07/18 12:26 99.4 10/07/18 09:20 88 20 100/66 (77) 97 Room Air 10/07/18 09:18 95 20 93/63 (73) 96 Room Air 10/07/18 06:39 94 Room Air 10/07/18 05:35 98.6 84 18 116/68 (84) 96 Room Air 10/06/18 23:08 99.8 10/06/18 21:44 Room Air 10/06/18 20:06 70 104/57 (73) 10/06/18 19:13 92 Room Air 10/06/18 18:34 100.0 10/06/18 18:02 Room Air I & O 10/07/18 07:00 Intake Total 710 ml Output Total 1550 ml Balance -840 ml Height & Weight Height: 5'6.00" Weight: 205lbs. 0.0oz. 92.830013fr; 33.1 BMI Method:Stated General Appearance: No Apparent Distress, WD/WN, Chronically ill HEENT: PERRL/EOMI, Normal ENT Inspection, Pharynx Normal, Moist Mucous Membranes Neck: Full Range of Motion, Normal Inspection, Non Tender, Supple Respiratory: Chest Non Tender, Lungs Clear, Normal Breath Sounds, No Accessory Muscle Use, No Respiratory Distress, Crackles (LLL subtle), Decreased Breath Sounds Cardiovascular: No Edema, No Gallop, No JVD, No Murmur, Irregularly Irregular Gastrointestinal: normal bowel sounds, non tender, soft, no organomegaly, no pulsatile mass Extremity: Normal Capillary Refill, Normal Inspection, Normal Range of Motion, Non Tender, No Calf Tenderness, No Pedal Edema Neurologic/Psychiatric: Alert, Oriented x3, No Motor/Sensory Deficits, Normal Mood/Affect, Motor Weakness (generalized all extremities 4/5) Skin: Normal Color, Warm/Dry Lymphatic: No Adenopathy Results Lab Laboratory Tests 10/06/18 17:42 10/07/18 05:50 Assessment/Plan Assessment/Plan Pulmonary hemorrhage -improved -Last hospitalization I check ANCA, Anti-Glomerular BM, and GENE - they were negative - echo shows EF 60-65% -monitor -prednisone taper Leukocytosis - probably secondary to prednisone -Monitor DM -SSI may need to start Levemir BRIDGER -Out pt JUAN Don DO Oct 07, 2018 17:25
[2018-10-07] MEDS ORDERED: VANCOMYCIN 1,750 MG/NS 500 ML IVPB IV NR ×2 (17:30)
[2018-10-07 18:34] VITALS: BP 150/79
[2018-10-07] MEDS: ACETAMINOPHEN 500 MG TAB (TYLENOL) PO PRN (18:36)
[2018-10-07] MEDS: LOSARTAN 25 MG (COZAAR) TAB PO SCH (18:46)
[2018-10-07] MEDS: TAMSULOSIN 0.4 MG (FLOMAX) CAP PO SCH (18:46)
--- NOTE | 2018-10-07 19:45 | NUR ---
bedside report received from KIRILL CASAREZ, assume care of pt
[2018-10-07] MEDS ORDERED: VANCOMYCIN 750 MG/NS 250 ML IVPB IV NR ×2 (20:00)
[2018-10-07] MEDS ORDERED: DILTIAZEM 120 MG (CARDIZEM CD) CAP PO NR (20:00)
--- NOTE | 2018-10-07 20:28 | Progress Note - Cardiology ---
Cardiology SOAP Progress Note Subjective: Recurrent fever this afternoon Gen malaise No shortness of breath or palp or syncope Objective: I&O/Vital Signs 10/07/18 10/07/18 10/07/18 10/07/18 09:18 09:20 12:26 16:36 Temp 99.4 101.0 Pulse 95 88 Resp 20 20 B/P (MAP) 93/63 (73) 100/66 (77) Pulse Ox 96 97 O2 Delivery Room Air Room Air 10/07/18 10/07/18 10/07/18 10/07/18 16:39 16:55 17:16 18:00 Temp 102.0 100.8 100.9 101.2 10/07/18 10/07/18 10/07/18 10/07/18 18:34 18:58 19:22 19:35 Temp 101.9 101.9 100.7 Pulse 103 Resp 20 B/P (MAP) 150/79 (102) Pulse Ox 95 90 O2 Delivery Room Air Room Air 10/07/18 00:00 Intake Total 510 ml Output Total 1050 ml Balance -540 ml Weight (Pounds): 205 Weight (Ounces): 0.0 Weight (Calculated Kilograms): 92.023790 Constitutional: AAO x 3, well-developed, well-nourished Respiratory: No accessory muscle use; other (good bilat air entry, diminished at the bases) Cardiovascular: regular rate-rhythm, S1 and S2, systolic murmur (soft GRETA at card base) Gastrointestional: No tender; soft; No guarding, No rebound; audible bowel sounds Extremities: swelling (mild bilat leg edema); No clubbing, No cyanosis Neurologic/Psychiatric: oriented x 3, grossly intact, power is 5/5 both on sides Skin: No rash on exposed areas, No ulcerations on exposed areas Results/Procedures: Labs Laboratory Tests 10/06/18 20:42: Glucometer 228H 10/07/18 04:04: Glucometer 138H 10/07/18 05:50: White Blood Count 9.3, Red Blood Count 3.49L, Hemoglobin 10.6L, Hematocrit 32L, Mean Corpuscular Volume 91, Mean Corpuscular Hemoglobin 30, Mean Corpuscular Hemoglobin Concent 33, Red Cell Distribution Width 15.8H, Platelet Count 113L, Mean Platelet Volume 9.8, Neutrophils (%) (Auto) 78H, Lymphocytes (%) (Auto) 14, Monocytes (%) (Auto) 7, Eosinophils (%) (Auto) 1, Basophils (%) (Auto) 0, Neut rophils # (Auto) 7.3, Lymphocytes # (Auto) 1.3, Monocytes # (Auto) 0.7, Eosinophils # (Auto) 0.1, Basophils # (Auto) 0.0, Sodium Level 133L, Potassium Level 3.4L, Chloride Level 99, Carbon Dioxide Level 26, Anion Gap 8, Blood Urea Nitrogen 12, Creatinine 0.70, Estimat Glomerular Filtration Rate > 60, BUN/Creatinine Ratio 17, Glucose Level 146H, Calcium Level 8.2L, Corrected Calcium 9.2, Phosphorus Level 2.4, Magnesium Level 1.3L, Total Bilirubin 0.9, Aspartate Amino Transf (AST/SGOT) 20, Alanine Aminotransferase (ALT/SGPT) 41, Al kaline Phosphatase 80, Total Protein 5.3L, Albumin 2.7L 10/07/18 11:45: Glucometer 160H 10/07/18 15:29: Glucometer 174H 10/07/18 17:05: Urine Color YELLOW, Urine Clarity CLEAR, Urine pH 6, Urine Specific [place] 1.020, Urine Protein 2+H, Urine Glucose (UA) 1+H, Urine Ketones NEGATIVE, Urine Nitrite NEGATIVE, Urine Bilirubin NEGATIVE, Urine Urobilinogen 4H, Urine Leukocyte Esterase NEGATIVE, Urine RBC (Auto) 1+H, Urine RBC NONE, Urine WBC RARE, Urine Squamous Epithelial Cells NONE, Urine Crystals NONE, Urine Bacteria NEGATIVE, Urine Casts NONE, Urine Mucus NEGATIVE, Urine Culture Indicated NO A/P: Assessment: Weakness and malaise and low grade fever and leucocytosis, systemic infection suspected, managed by Dr Saravia Relatively low bp lately necessitating d/c diltiazem and reduction in beta- sita. BP has since been better Hemoptysis and pulmonary hemorrhage necessitating discontinuation of Eliquis and aspirin in mid-August 2018; low-dose aspirin reinitiated on 10/01/18 Echo of 09/19/18: LVEF 60-65%, biatrial enlargement, mod MR, mild to mod TR, RVSP 45 mmHg 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 Cardiac cath from December 30, 2013 in which successful GAURI x 2, one to the proximal and one to the mid vessel LAD, was done. 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 Pacemaker currently in the VVIR mode, due to permanent atrial fib. The patient had a pulse generator change out on 12/18/2011. The device is functioning normally per last interrogation of September 23, 2018 (DIMITRIOS estimate 11 months) History of ulcerative colitis, being managed by Dr. Parsons and Dr. Seymour Stroke prophylaxis with Eliquis - currently being held d/t hemoptysis Sleep apnea for which he is following with Dr Mijares - Bi-pap therapy Hyperlipidemia being treated with rosuvastatin. Mild carotid arterial disease that has been followed by Dr. Mcdaniel History of cholecystectomy. Impaired fasting glucose Elevated BMI of approx 30 S/p melanoma removal from the back in 2018, followed by Dr Parsons Plan: * Complex management due to multiple comorbidities * Furosemide and supplemental K reduced(because of lack of edema or clinical evidence of CHF) * Resume long-acting diltiazem because heart rate is fast and bp is currently somewhat elevated * Monitor labs * I spoke with him and his and answered CV-related questions TOSHA JUNIOR MD FACP FAC CCDS Oct 07, 2018 20:28
[2018-10-07 20:30] VITALS: BP 95/60
--- NOTE | 2018-10-07 20:40 | NUR ---
b/p 95/60
[2018-10-07] MEDS ORDERED: MAGNESIUM 1 GM/100 ML IVPB 100 ML IV SCH (20:45)
--- NOTE | 2018-10-07 20:48 | NUR ---
called back advised of b/p, orders received to hold Cardizem , notify & if ok with start ns at 100ml/hr
--- NOTE | 2018-10-07 20:50 | NUR ---
assessments & interventions completed, see assessments & interventions, pt refused Senokot Lopressor 25mg held due to decreased b/p
--- NOTE | 2018-10-07 20:50 | NUR ---
notified of v/s, & ADS concerns of sepsis & IV fluids of ns at 100ml/hr, ns at 100ml/hr ok with
--- NOTE | 2018-10-07 21:08 | NUR ---
called regarding mag ordered advised by KIRILL RN already received mag today, orders received not to give & order labs cbc, cmp & mag for am
--- NOTE | 2018-10-07 21:21 | NUR ---
This RN was contacted by Dr. Mijares in regards to patient having fever and wanting this RN to assess patient. Patient awake, alert, resting in bed at this time. No signs of acute distress noted. Heart irregular, lungs clear. Radial pulse 96, bp 95/60, temperature 99.5 temporal. Labs reviewed, vancomycin currently running through midline catheter. No signs of infection at insertion site. Per primary RN, patient has also received zosyn. Dr. Mijares notified of findings, new orders to give 1L NS over 2 hours and labs/cxr ordered for am. This RN reported new orders to Opal CASAREZ.
[2018-10-07] MEDS ORDERED: NS IV 1000 ML 1,000 ML IV SCH (21:30)
[2018-10-07 22:20] VITALS: BP 113/71
--- NOTE | 2018-10-07 22:20 | NUR ---
v/s 97.8-85-18-96%-113/71 vancomycin infusing then start fluid bolus
--- NOTE | 2018-10-07 22:29 | NUR ---
ns at 500ml/hr fluid bolus started
--- NOTE | 2018-10-07 22:30 | NUR ---
fsbs 256 novolog 5 units given
[2018-10-07] MEDS: MESALAMINE 1.2 GM PO SCH (22:31)
[2018-10-08] MEDS: NS IV 1000 ML 1,000 ML IV SCH ×3 (00:22→11:53)
[2018-10-08] MEDS: PIPERACILLIN/TAZO 4.5 GM/NS 100 ML IV SCH ×6 (00:22→19:27)
[2018-10-08 04:00] VITALS: BP 128/76
[2018-10-08] MEDS: ACETAMINOPHEN 500 MG TAB (TYLENOL) PO PRN ×3 (04:15→19:39)
--- NOTE | 2018-10-08 04:15 | NUR ---
temp 102.4 tylenol 500mg given
--- NOTE | 2018-10-08 04:42 | NUR ---
c/o nausea Zofran 4 mg iv given
--- NOTE | 2018-10-08 05:00 | NUR ---
temp 101.8
[2018-10-08] MEDS: inSUlin ASPART (NovoLOG) 1 UNIT/0.01 ML (CHARGE PER UNIT) SC SCH ×4 (06:00→21:25)
[2018-10-08] MEDS ORDERED: TROUGH ORDER-PHARMACY XX NR (06:00)
--- NOTE | 2018-10-08 06:10 | NUR ---
temp 99.6
[2018-10-08] MEDS: KCL 10 MEQ TAB (MICRO K) PO SCH (06:28)
[2018-10-08] MEDS: LACTOBACILLUS ACIDOPHILUS (PROBIOTIC) CAPSULE PO SCH ×2 (06:29→16:59)
[2018-10-08] MEDS: PANTOPRAZOLE 40 MG (PROTONIX) TAB PO SCH (06:29)
[2018-10-08] MEDS: FUROSEMIDE 20 MG (LASIX) TAB PO SCH (06:29)
[2018-10-08] MEDS ORDERED: VANCOMYCIN 1 GM/NS 250 ML IVPB IV SCH ×2 (06:30)
[2018-10-08 06:37] LABS: BASOPHILS % (AUTO) 0 % (0-10); EOSINOPHILS # (AUTO) 0.1 10^3/uL (0.0-0.3); EOSINOPHILS % (AUTO) 1 % (0-10); HEMATOCRIT 30 % (40-54); LYMPHOCYTES # (AUTO) 0.7 X 10^3 (1.0-4.0); LYMPHOCYTES % (AUTO) 11 % (12-44); MEAN CORPUSCULAR HEMOGLOBIN 30 PG (25-34); MEAN CORPUSCULAR HGB CONC 33 G/DL (32-36); MEAN CORPUSCULAR VOLUME 91 FL (80-99); MEAN PLATELET VOLUME 9.6 FL (7.4-10.4); MONOCYTES # (AUTO) 0.5 X 10^3 (0.0-1.0); MONOCYTES % (AUTO) 8 % (0-12); NEUTROPHILS # (AUTO) 5.6 X 10^3 (1.8-7.8); NEUTROPHILS % (AUTO) 81 % (42-75); PLATELET COUNT 96 10^3/uL (130-400); RED CELL DISTRIBUTION WIDTH 15.6 % (10.0-14.5); WHITE BLOOD COUNT 6.9 10^3/uL (4.3-11.0)
[2018-10-08 07:01] LABS: ALANINE AMINOTRANSFERASE 44 U/L (0-55); ALBUMIN 2.6 GM/DL (3.2-4.5); ALKALINE PHOSPHATASE 87 U/L (40-136); BILIRUBIN,TOTAL 0.8 MG/DL (0.1-1.0); BUN/CREATININE RATIO 13; CALCIUM 7.8 MG/DL (8.5-10.1); CARBON DIOXIDE 21 MMOL/L (21-32); CHLORIDE 105 MMOL/L (98-107); CREATININE SERUM 0.68 MG/DL (0.60-1.30); GFR ESTIMATED > 60; GLUCOSE 170 MG/DL (70-105); MAGNESIUM 1.6 MG/DL (1.8-2.4); PHOSPHORUS 2.6 MG/DL (2.3-4.7); POTASSIUM 3.7 MMOL/L (3.6-5.0); SODIUM 136 MMOL/L (135-145); TOTAL PROTEIN 5.1 GM/DL (6.4-8.2)
[2018-10-08 07:10] LABS: VANCOMYCIN,TROUGH 10.1 UG/ML (10.0-20.0)
[2018-10-08] MEDS: VANCOMYCIN 1 GM/NS 250 ML IVPB IV SCH ×4 (07:28→23:06)
--- NOTE | 2018-10-08 07:42 | NUR ---
bedside report given to KIRILL CASAREZ
[2018-10-08 07:57] VITALS: BP 110/72
--- NOTE | 2018-10-08 08:25 | Progress Note ---
Subjective Date Seen by a Provider: Oct 08, 2018 Time Seen by a Provider: 08:21 Subjective/Events-last exam PT REPORTS THAT HE JUST FEELS AWFUL. HE REPORTS THAT HE HAS A COUGH, CONGESTION IN HIS CHEST. HE STATES THAT HE HAS CLEAR TO WHITE COLORED SPUTUM. HE REPORTS THAT HE HAS EXTREME WEAKNESS. Review of Systems General: Fatigue, Malaise Pulmonary: Dyspnea, Cough Cardiovascular: No: Chest Pain Gastrointestinal: No: Nausea, Abdominal Pain, Diarrhea Neurological: Weakness; No: Confusion Focused Exam Lactate Level 10/06/18 17:42: Lactic Acid Level 1.44 Objective Exam Last Set of Vital Signs Vital Signs Date Time Temp Pulse Resp B/P (MAP) Pulse Ox O2 Delivery O2 Flow Rate FiO2 10/08/18 08:03 Room Air 10/08/18 07:57 97.4 87 20 110/72 (85) 97 Capillary Refill : I&O Intake and Output 10/08/18 00:00 Intake Total 1727.5 ml Output Total 1600 ml Balance 127.5 ml Intake Oral 1350 ml IV Total 377.5 ml Output Urine Total 1600 ml # Voids 1 General: Alert, Oriented X3, Cooperative, No Acute Distress HEENT: Atraumatic, PERRLA Neck: Supple Lungs: Clear to Auscultation (WITH DECREASED AIR MOVEMENT IN BASES) Heart: Regular Rate Abdomen: Normal Bowel Sounds, Soft, No Tenderness Extremities: No Cyanosis, Other (+ EDEMA) Neuro: Cranial Nerves 3-12 NL Psych/Mental Status: Mental Status NL, Mood NL Results Lab Laboratory Tests 10/07/18 11:45: Glucometer 160H 10/07/18 15:29: Glucometer 174H 10/07/18 17:05: Urine Color YELLOW, Urine Clarity CLEAR, Urine pH 6, Urine Specific [place] 1.020, Urine Protein 2+H, Urine Glucose (UA) 1+H, Urine Ketones NEGATIVE, Urine Nitrite NEGATIVE, Urine Bilirubin NEGATIVE, Urine Urobilinogen 4H, Urine Le ukocyte Esterase NEGATIVE, Urine RBC (Auto) 1+H, Urine RBC NONE, Urine WBC RARE, Urine Squamous Epithelial Cells NONE, Urine Crystals NONE, Urine Bacteria NEGATIVE, Urine Casts NONE, Urine Mucus NEGATIVE, Urine Culture Indicated NO 10/07/18 21:01: Glucometer 256H 10/08/18 00:01: Glucometer 245H 10/08/18 05:43: Glucometer 183H 10/08/18 06:20: White Blood Count 6.9, Red Blood Count 3.32L, Hemoglobin 10.0L, Hematocrit 30L, Mean Corpuscular Volume 91, Mean Corpuscular Hemoglobin 30, Mean Corpuscular Hemoglobin Concent 33, Red Cell Distribution Width 15.6H, Platelet Count 96L, Mean Platelet Volume 9.6, Neutrophils (%) (Auto) 81H, Lymphocytes (%) (Auto) 11L , Monocytes (%) (Auto) 8, Eosinophils (%) (Auto) 1, Basophils (%) (Auto) 0, Neutrophils # (Auto) 5.6, Lymphocytes # (Auto) 0.7L, Monocytes # (Auto) 0.5, Eosinophils # (Auto) 0.1, Basophils # (Auto) 0.0, Sodium Level 136, Potassium Level 3.7, Chloride Level 105, Carbon Dioxide Level 21, Anion Gap 10, Blood Urea Nitrogen 9, Creatinine 0.68, Estimat Glomerular Filtration Rate > 60, BUN/Creatinine Ratio 13, Glucose Level 170H, Calcium Level 7.8L, Corrected Calcium 8.9, Phosphorus Level 2.6, Magnesium Level 1.6L, Total Bilirubin 0.8, Aspartate Amino Transf (AST/SGOT) 21, Alanine Aminotransferase (ALT/SGPT) 44, Alkaline Phosphatase 87, Total Protein 5.1L, Albumin 2.6L, Vancomycin Level Trough 10.1 Assessment/Plan Assessment/Plan Assess & Plan/Chief Complaint PULMONARY HEMORRHAGE PNEUMONIA ATRIAL FIBRILLATION HYPERTENSION HYPERLIPIDEMIA ULCERATIVE COLITIS GENERALIZED WEAKNESS INSOMNIA CHRONIC ANTICOAGULATION USE BPH CRITICAL CARE MYOPATHY EMPHYSEMA HYPOMAGNESEMIA PULMONARY HEMORRHAGE WITH PNEUMONIA - PULMONARY HEMORRHAGE HAS RESOLVED, BUT PT SPIKED A FEVER YESTERDAY EVENING AND HE WAS PLACED BACK ON ZOSYN AND VANCOMYCIN. WILL REPEAT CHEST XRAY THIS MORNING. SERIAL XRAYS AND SERIAL LABS ORDERED. ATRIAL FIBRILLATION - -ASPIRIN RESTARTED ON 10/02/18, ELIQUIS HAD TO BE STOPPED DUE TO RECURRENT PULMONARY HEMORRHAGES. - DEFER OTHER TREATMENT TO DR. JUNIOR - PT'S PRIMARY REHAB THERAPIST. HYPERTENSION - CONTINUE WITH METOPROLOL ORALLY HYPERLIPIDEMIA - STABLE - HOLD STATIN FOR NOW DUE TO HIS CRITICAL ILLNESS MYOPATHY ULCERATIVE COLITIS - RESTARTED LIALDA GENERALIZED WEAKNESS -PT WAS ADMITTED TO IN REHAB FOR THERAPY FOR STRENGTHENING. EMPHYSEMA - DX ON HIS CT SCAN - HE WILL NEED CONTINUED TREATMENT OF HIS ILLNESS WITH DR. HESS AN OUTPATIENT. INSOMNIA - RESTARTED HIS HOME MELATONIN DOSING. BPH - RESTARTED TAMSULOSIN. CONTINUE WITH INPT REHAB FOR TREATMENT OF CRITICAL CARE MYOPATHY HYPOMAGNESEMIA - MAGNESIUM IV Clinical Quality Measures DVT/VTE Risk/Contraindication: Risk Factor Score Per Nursin RFS Level Per Nursing on Admit: 4+=Very High CODEY BARILLAS MD Oct 08, 2018 08:25
[2018-10-08] MEDS: RT-ALBUTEROL/IPRATROPIUM 3 ML (DUONEB) VIAL INH SCH ×2 (08:42→19:54)
--- NOTE | 2018-10-08 08:43 | NUR ---
RT STARTED ACAPELLA (AEROBIKA) AT THIS TIME DUE TO VERBAL ORDER FROM DR BARILLAS TO HELP WITH SECTIONS
--- NOTE | 2018-10-08 09:52 | PM&R Progress Note ---
Subjective HPI/CC On Admission Date Seen by Provider: Oct 08, 2018 Time Seen by Provider: 09:15 Chief complaint: Severe myopathy from critical illness History of present illness: This is a 78-year-old white male patient of Dr. Parsons who presents after a complex ICU stay which included intubation due to respiratory insufficiency due to recurrent pulmonary hemorrhage requiring airway protection and placed on treatment for hospital acquired pneumonia. Patient is not an anticoagulation candidate at this current time due to the recurrent hemorrhages. Patient is doing extremely well very weak and will require intensive rehabilitation in order to return home. Prior level of functioning was independent with ADLs and ambulation. He does have a history of inflammatory bowel disease of which he has a lot of diarrhea which is chronic. He denies any significant pain and he does have lower extremity edema we have initiated LUIS EDUARDO her for compression therapy. His daughter from [facility] is here visiting him. I checked meds and labs. Blood pressure has been mildly elevated at 160/77 but he is not having any more dysphagia as a complication from intubation and we will discontinue Head catheter and telemetry. Subjective/Events-last exam Had a very complex night with 102 fever so I consulted with Dr. Mijares who placed him on broad-spectrum antibiotics of Zosyn and Vancomycin and blood cultures were obtained. Chest X-ray and CT scan of the brain was ordered by Dr. Parsons and I did update her lastnight also. Dr. Avila was notified last night due to hypotension and Cardizem 120 was given for the heart rate but IV fluid was initiated due to supected sepsis. Midline will be changed out today. [place] was restarted but if he has hemoptysis will discontinue that per PCP. Vanc trough was 10. Pulse of 87 today and 97% on room air. Had a loss of appetite and given Zofran due to mild nausea this morning Magnesium 1.6 after two bags of magnesium given was very concerned last night and I was updating nursing supervisor park workers in case ICU transfer was required but he was actually able to do well through the night and was very positive today, feels much better about the situation, and overall feels much improved. Very complex case given how fragile he is, fully dependent on aggressive medical care and if he fails inpatient rehab he may very well not recover, may be a hospice candidate or a senior care placement candidate Denies any other significant problems Conferred with RN Reviewed therapy notes Checked meds and labs Review of Systems General: Fatigue Pulmonary: Dyspnea Focused Exam Lactate Level 10/06/18 17:42: Lactic Acid Level 1.44 Objective Exam Vital Signs Vital Signs Date Time Temp Pulse Resp B/P (MAP) Pulse Ox O2 Delivery O2 Flow Rate FiO2 10/08/18 19:39 101.2 10/08/18 18:45 74 125/65 (85) 10/08/18 15:35 16 92 Room Air Capillary Refill : General Appearance: No Apparent Distress, WD/WN, Chronically ill HEENT: PERRL/EOMI, Normal ENT Inspection, Pharynx Normal, Moist Mucous Membranes Neck: Full Range of Motion, Normal Inspection, Non Tender, Supple Respiratory: Chest Non Tender, Lungs Clear, Normal Breath Sounds, No Accessory Muscle Use, No Respiratory Distress, Crackles (LLL subtle), Decreased Breath Sounds, Rales (L>R) Cardiovascular: No Edema, No Gallop, No JVD, No Murmur, Irregularly Irregular Gastrointestinal: Normal Bowel Sounds, No Organomegaly, No Pulsatile Mass, Non Tender, Soft Back: Normal Inspection, No CVA Tenderness, No Vertebral Tenderness Extremity: Normal Capillary Refill, Normal Inspection, Normal Range of Motion, Non Tender, No Calf Tenderness, No Pedal Edema Neurologic/Psychiatric: Alert, Oriented x3, No Motor/Sensory Deficits, Normal Mood/Affect, Motor Weakness (generalized all extremities 4/5) Skin: Normal Color, Warm/Dry Lymphatic: No Adenopathy Results/Procedures Lab Laboratory Tests 10/08/18 06:20 Patient resulted labs reviewed. FIM Transfers Therapy Code Descriptions/Definitions Functional [place] Measure: 0=Not Assessed/NA 4=Minimal Assistance 1=Total Assistance 5=Supervision or Setup 2=Maximal Assistance 6=Modified [place] 3=Moderate Assistance 7=Complete [place] Therapy Quality Codes: 6 Independent with activity with or without an assistive device 5 Patient requires set up or clean up by helper. Patient completes activity by themselves 4 Supervision or touching assist (CGA). [place] provide cues , steadying assist 3 The helper provides less than half the effort to complete the activity 2 The helper provides more than half the effort to complete the activity 1 Dependent. The helper does all the effort to complete an activity 7 Patient refused to complete or attempt activity 9 The patient did not perform the activity before the current illness or injury 88 Not attempted due to Medical conditions or safety concerns Transfers (B, C, W/C) (FIM): 1 Scootin Rollin Roll Left to Right (QC): 2 Supine to/from Sit: 4 Sit to/from Stand: 2 Sit to Lying (QC): 2 Sit to Stand (QC): 1 Chair/[id number] Xfer(QC): 1 Bed to/from Chair: 2 Car Transfer (QC): 88 (Dependent on sit<->stand lift and poor trunk control currently) Gait Training Does the Patient Walk?: No and Walking Goal IS indicated Gait (FIM): 0 Distance (FIM): 0=does not occure Walk 10 feet (QC): 88 Walk 50 ft with 2 Turns(QC): 88 Walk 150 ft (QC): 88 Walking 10ft/uneven surface-QC: 88 Wheelchair Training Does the Pt Use a Wheelchair?: Yes Wheelchair (FIM): 5 Wheelchair Distance: 3=150 ft Distance: 150'x2 Wheelchair Level of Assist: 5 Wheel 50 ft with 2 turns (QC): 5 Wheel 150 ft (QC): 5 Type of Wheelchair: Manual Stair Training Stairs (FIM): 0 1 Step (curb) (QC): 88 4 Steps (QC): 88 12 Steps (QC): 88 Balance Picking up an Object (QC): 88 Mental Status/Objective Comprehension: 6 Expression: 5 Social Interaction: 6 Problem Solvin Memory: 3 ADL-Treatment Feedin Eating (QC): 5 Groomin Oral Hygiene (QC): 6 Bathin (SBA with LH in shower on rolling shower chair.) Bathing Location: L Arm, R Arm, L Upper Leg, R Upper Leg, Chest, Abdomen, Perineal Area Shower/Bathe Self (QC): 4 Upper Extremity Dressin Upper Body Dressing (QC): 4 Lower Extremity Dressin (Pt. able to thread shorts over feet with AE and pull to thighs. Dependent to pull up while on sit-stand. Max assist with jerry ing socks and shoes using equipment due to angle of feet on sit-stand.) Lower Body Dressing (QC): 2 On/Off Footwear (QC): 2 Toiletin (Pt requires assist x2 to manipulate clothing and cleanse self.) Toileting Hygiene (QC): 1 Toilet/Commode Transfer: 1 Toilet Transfer (QC): 1 Shower: 1 Assessment/Plan Assessment and Plan Assess & Plan/Chief Complaint Assessment: Acute fever placed on empiric abx and need to monitor closely all images and labs reviewed and appreciate Jaqueline Gillis and [place] on this complex case Acute steroid myopathy now improved 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 pulmonary hemorrhage no longer an anticoagulation candidate at this current time Status post pneumonia Chronic atrial fibrillation Hypertension Hyperlipidemia Ulcerative colitis Insomnia BPH COPD Leukocytosis continues to have elevated wbc Insomnia Cognitive deficit? Likely due to steroids, hopefully will completely resolve Hypokalemia Plan: Monitor labs Monitor fever, empiric abx O2 Nebs BP management IRF therapy protocols Melatonin home supply Monitor crackles on bases Replace potassium (1) Myopathy (2) BRIDGER treated with BiPAP (3) CAD S/P percutaneous coronary angioplasty Onset Date: 12/31/2013 (4) Pacemaker (5) Asthma (6) Hx of CABG (7) Leukocytosis (8) Weakness generalized (9) Anemia (10) COPD (chronic obstructive pulmonary disease) (11) Hypoxemia (12) Edema (13) Ulcerative colitis (14) Fecal incontinence (15) Contraindication to anticoagulation therapy (16) Pulmonary hemorrhage (17) Acute insomnia (18) Leukocytosis KOBI ESTEBAN DO Oct 08, 2018 09:52
[2018-10-08] MEDS: SENNA W/DOCUSATE (SENOKOT S) TABLET PO SCH ×3 (09:59→21:30)
--- NOTE | 2018-10-08 09:59 | Physical Therapy Daily Note ---
PT Daily Note-Current Subjective Patient in wheelchair at bedside pre tx, agrees to PT, xray is here to take patient, PT agrees to go and assist with transfers since patient works on that in PT anyway. Appearance Patient in wheelchair at bedside post tx with nurse call, phone, tray, all needs met. Nurse in the room. Mental Status Patient Orientation: Normal For Age Transfers Therapy Code Descriptions/Definitions Functional [place] Measure: 0=Not Assessed/NA 4=Minimal Assistance 1=Total Assistance 5=Supervision or Setup 2=Maximal Assistance 6=Modified [place] 3=Moderate Assistance 7=Complete [place] Therapy Quality Codes: 6 Independent with activity with or without an assistive device 5 Patient requires set up or clean up by helper. Patient completes activity by themselves 4 Supervision or touching assist (CGA). [place] provide cues , steadying assist 3 The helper provides less than half the effort to complete the activity 2 The helper provides more than half the effort to complete the activity 1 Dependent. The helper does all the effort to complete an activity 7 Patient refused to complete or attempt activity 9 The patient did not perform the activity before the current illness or injury 88 Not attempted due to Medical conditions or safety concerns Transfers (B, C, W/C) (FIM): 2 Scootin Rollin Supine to/from Sit: 4 Sit to/from Stand: 2 Bed to/from Chair: 2 Patient still max assist to stand and for transfers but has shown improvement. Patient transferred to CT table, supine <-> sit, and back to wheelchair . Weight Bearing Right Lower Extremity: Right Full Weight Bearing Left Lower Extremity: Left Full Weight Bearing Wheelchair Training Does the Pt Use a Wheelchair?: Yes Wheelchair (FIM): 5 Distance: 150' Wheelchair Level of Assist: 5 Type of Wheelchair: Manual Very slow, multiple rest breaks. Exercises LAQ alternating for 5 min, sit to stand x4 for about 30 seconds each with max assist. Treatments bed mobility and transfers, standing, LE exercise, wheelchair mobility. Assessment Current Status: Fair Progress very slowly improving leg strength PT Short Term Goals Short Term Goals Time Frame: Oct 12, 2018 Transfers (B,C,W/C) (FIM): 4 Wheelchair Distance: 150'x2 PT Parish Visitor Goals Correction Goals PT Parish Visitor Goals Time Frame: Oct 26, 2018 Transfers (B,C,W/C) (FIM): 6 Sit to Lying (QC): 6 Lying-Sitting on Side/Bed(QC): 6 Sit to Stand (QC): 6 Rollin Roll Left to Right (QC): 6 Chair/Fjm-tc-Uniil Xfer(QC): 6 Car Transfer (QC): 6 Does the Patient Walk: No and Walking Goal IS indicated Gait (FIM): 6 Gait distance (FIM): 3=150 ft Distance: 150 Walk 10 feet (QC): 6 Walk 10ft-Uneven Surface(QC): 6 Walk 50ft with 2 Turns (QC): 6 Walk 150 ft (QC): 6 Gait Level of Assist: 6 Gait Assistive Device: FWW Stairs (FIM): 6 # of Steps: 12 1 Step (curb) (QC): 6 4 Steps (QC): 6 12 Steps (QC): 6 Stairs Level Of Assist: 6 Picking up an Object (QC): 5 PT Plan Problem List Problem List: Activity Tolerance, Functional Strength, Safety, Balance, Gait, Transfer, Bed Mobility, ROM Treatment/Plan Treatment Plan: Continue Plan of Care Treatment Plan: Bed Mobility, Concurrent Therapy, Education, Functional Activity Gilbert, Functional Strength, Group Therapy, Gait, Safety, Therapeutic Exercise, Transfers Treatment Duration: Oct 26, 2018 Frequency: At least 5 of 7 days/Wk (IRF) Estimated Hrs Per Day: 1.5 hours per day Patient and/or Family Agrees t: Yes Safety Risks/Education Patient Education: Transfer Techniques, Correct Positioning, W/C Management, Safety Issues Teaching Recipient: Patient Teaching Methods: Demonstration, Discussion Response to Teaching: Reinforcement Needed Time/GCodes Time In: 0900 Time Out: 1000 Total Billed Treatment Time: 60 Total Billed Treatment 1 visit [facility] 10' EX 15' FA 35' MARIA ELENA ESQUIVEL PT Oct 08, 2018 09:59
[2018-10-08] MEDS: ASPIRIN 81 MG CHEW (CHILDREN'S ASA) PO SCH (10:01)
[2018-10-08] MEDS: LORATADINE (CLARITIN) 10 MG TAB PO SCH (10:02)
--- NOTE | 2018-10-08 10:10 | Diagnostic Imaging Report ---
PROCEDURE: CT head wok r/o stroke. TECHNIQUE: Multiple contiguous axial images were obtained through the brain without the use of intravenous contrast. Auto Exposure Controls were utilized during the CT exam to meet ALARA standards for radiation dose reduction. INDICATION: Legs are weaker than rest of body, trunk weakness. COMPARISON: None FINDINGS: There are diffuse atrophic changes with prominence of the ventricles and sulci. There are scattered areas of decreased attenuation, nonspecific but likely changes of chronic small vessel ischemic disease. There is otherwise normal brown-white differentiation. No abnormal areas of attenuation to suggest edema from ischemia. There is no midline shift or mass effect. No evidence for acute intracranial hemorrhage or abnormal extra-axial fluid collection. Bony calvarium is intact. Paranasal sinuses demonstrate mild mucosal thickening left maxillary sinus and trace air-fluid level right maxillary sinus. Mastoid air cells also appear clear. IMPRESSION: 1. No CT evidence for acute intracranial abnormality. 2. Age-related atrophic changes with changes of small vessel ischemic disease. Dictated by: Dictated on workstation # [id number]
--- NOTE | 2018-10-08 10:45 | Diagnostic Imaging Report ---
INDICATION: Cough and fever. TECHNIQUE: Two view chest 9:09 AM CORRELATION STUDY: 10/06/2018 FINDINGS: Poststernotomy and coronary bypass changes. Left-sided pacemaker stable. Heart size enlarged. Vascular is slightly prominent. Scattered pulmonary parenchymal densities are present. However, no consolidating infiltrate. Lung mendoza do appear to be slightly hyperinflated with chronic change about the lung parenchyma. Mildly advanced degenerative changes of the thoracic spine. IMPRESSION: 1. Borderline heart size and vascular prepped slightly increased from prior study. 2. Chronic-appearing change about the lung parenchyma without evidence for any significant consolidating infiltrate. Dictated by: Dictated on workstation # [id number]
--- NOTE | 2018-10-08 11:14 | NUR ---
RN PLACING NEW MIDLINE ORDERED, PT RESTING IN BED.
--- NOTE | 2018-10-08 11:26 | Occupational Ther Daily Note ---
OT Current Status-Daily Note Subjective Pt. does not report pain. Does report that he had a fever last night. Currently on antibiotics. Appearance Pt. up in chair. Agrees to work with OT. Mental Status/Objective Patient Orientation: Person, Place Therapy Code Descriptions/Definitions Functional [place] Measure: 0=Not Assessed/NA 4=Minimal Assistance 1=Total Assistance 5=Supervision or Setup 2=Maximal Assistance 6=Modified [place] 3=Moderate Assistance 7=Complete [place] ADL-Treatment Therapy Code Descriptions/Definitions Functional [place] Measure: 0=Not Assessed/NA 4=Minimal Assistance 1=Total Assistance 5=Supervision or Setup 2=Maximal Assistance 6=Modified [place] 3=Moderate Assistance 7=Complete [place] Therapy Quality Codes: 6 Independent with activity with or without an assistive device 5 Patient requires set up or clean up by helper. Patient completes activity by themselves 4 Supervision or touching assist (CGA). [place] provide cues , steadying assist 3 The helper provides less than half the effort to complete the activity 2 The helper provides more than half the effort to complete the activity 1 Dependent. The helper does all the effort to complete an activity 7 Patient refused to complete or attempt activity 9 The patient did not perform the activity before the current illness or injury 88 Not attempted due to Medical conditions or safety concerns Grooming (FIM): 5 Oral Hygiene (QC): 5 Lower Body Dressing (FIM): 3 Lower Body Dressing (QC): 3 Transfers (B, C, W/C) (FIM): 1 Other Treatment Pt. is up in chair. Reports that he has fresh clothing on, and has already cleaned up, as he sweat in bed last night from fever. Pt. does request to groom self at sink. Pt. is set up at wheelchair level and is able to complete all grooming tasks. Pt. and OT go to therapy gym and pt. practices doffing/donning slipper socks with AE. Mod assist needed. Completed 4 LE exercises x 10 reps each while seated, as pt. states that he is "shivering" and requests a blanket. OT obtains warm blanket. At this time, nursing notified therapist that Mid-line nurse here to place new line. Pt. taken back to room and transferred to bed via sit-stand lift. All needs met. Education OT Patient Education: Correct positioning, Modified ADL techniques, Progress toward Goal/Update tx plan, Purpose of tx/functional activities, Reviewed precautions, Rehab process, Transfer techniques, Use of adapted equipment Teaching Recipient: Patient Teaching Methods: Demonstration, Discussion Response to Teaching: Verbalize Understanding, Return Demonstration OT Short Term Goals Short Term Goals Time Frame: Oct 04, 2018 Grooming(FIM): 4 Bathing(FIM): 3 Upper Body Dressing(FIM): 4 Lower Body Dressing(FIM): 3 Toileting(FIM): 3 Transfers (B,C,W/C) (FIM): 4 Toilet/Commode Transfer(FIM): 3 Additional Short Term Goals: 1-Demonstrate ADL Tasks, 2-Verbalize Understanding, 3-ImproveStrength/Gilbert 1=Demonstrate adherence to instructed precautions during ADL tasks. 2=Patient will verbalize/demonstrate understanding of assistive devices/modifications for ADL. 3=Patient will improve strength/tolerance for activity to enable patient to perform ADL's. OT Usp Goals Bariatric Program Coordinator Goals Time Frame: Oct 25, 2018 Eating (FIM): 6 Eating (QC): 6 Groomin Oral Hygiene (QC): 6 Bathing(FIM): 5 Shower/Bathe Self (QC): 5 Upper Body Dressing(FIM): 5 Upper Body Dressing (QC): 5 Lower Body Dressing(FIM): 5 Lower Body Dressing (QC): 5 On/Off Footwear (QC): 5 Toileting(FIM): 5 Toileting Hygiene (QC): 5 Toilet/Commode Transfer(FIM): 5 Toilet/Commode Transfer (QC): 5 Shower Transfer(FIM): 5 Additional Goals: 1-Demonstrate ADL Tasks, 2-Verbalize Understanding, 3- ImproveStrength/Gilbert 1=Demonstrate adherence to instructed precautions during ADL tasks. 2=Patient will verbalize/demonstrate understanding of assistive devices/modifications for ADL. 3=Patient will improve strength/tolerance for activity to enable patient to perform ADL's. OT Education/Plan Problem List/Assessment Assessment: Decreased Activ Tolerance, Decreased UE Strength, Dependent Transfers, Impaired Funct Balance, Impaired I ADL's, Impaired Self-Care Skills Pt demonstrates decreased mobility, strength, activity tolerance, and ADL functioning. Pt to benefit from skilled OT intervention for ADL training, transfers, strengthening, and home safety education to increase level of independence and allow safe discharge home. Discharge Recommendations Plan/Recommendations: Continue POC Treatment Plan/Plan of Care Treatment,Training & Education: Yes Patient would benefit from OT for education, treatment and training to promote independence in ADL's, mobility, safety and/or upper extremity function for ADL's. Plan of Care: ADL Retraining, Functional Mobility, Group Exercise/Act as Ind, UE Funct Exercise/Act Treatment Duration: Oct 25, 2018 Frequency: At least 5 of 7 days/Wk (IRF) Estimated Hrs Per Day: 1.5 hours per day Agreement: Yes Rehab Potential: Fair Time/GCodes Start Time: 10:15 Stop Time: 11:00 Total Time Billed (hr/min): 45 Billed Treatment Time 1, ADL x 15miutes, FA x 30minutes ANURAG HENRIQUEZ OT Oct 08, 2018 11:26
[2018-10-08] MEDS: DICLOFENAC 1% GEL 100 GM (VOLTAREN) TUBE TOP SCH ×4 (11:32→21:30)
[2018-10-08 11:42] VITALS: BP 153/53
[2018-10-08] MEDS: DULoxetine 20 MG (CYMBALTA) CAP PO SCH ×2 (11:47→21:29)
[2018-10-08] MEDS: DILTIAZEM 120 MG (CARDIZEM CD) CAP PO SCH (11:48)
[2018-10-08] MEDS: meTOprolol TARTRATE 25 MG (LOPRESSOR) TABLET PO SCH ×2 (11:48→21:29)
--- NOTE | 2018-10-08 13:51 | Speech Therapy Daily Note ---
Speech Daily Progress Note Subjective Date Seen by Provider: Oct 08, 2018 Time Seen by Provider: 00:30 The patient stated he had been running a fever off and on for the past day. Objective The patient completed problem solving tasks at 80% with minimal verbal cues. Assessment Assessment Current Status: Good Progress Treatment Plan Continue Plan of Care Communication Comprehension: 6 Expression: 5 Social Cognition Social Interaction: 6 Problem Solvin Memory: 3 Speech Short Term Goals Short Term Goals Short Term Goals 1) The patient will complete memory tasks at 80% or greater with minimal verbal cues. 2) The patient will complete problem solving tasks at 80% or greater with minimal verbal cues. 3) The patient will complete safety awareness tasks at 80% or greater with minimal verbal cues. Speech Nightclub Manager Goals Longterm Goals The patient will increase cognitive skills for safety and independence. Speech-Plan Patient/Family Goals Patient/Family Goals: The patient plans on returning home with his post rehab. Treatment Plan Speech Therapy Treatment Plan: Continue Plan of Care The patient is progressing with ST goals. Treatment Duration: Oct 11, 2018 Frequency: 4 times per week Estimated Hrs Per Day: .5 hour per day Rehab Potential: Fair Barriers to Learning: The patient has cognitive deficits. Pt/Family Agrees to Plan: Yes Safety Risks/Education Teaching Recipient: Patient Teaching Methods: Discussion Response to Teaching: Verbalize Understanding Education Topics Provided: Communication of his needs. Time Speech Therapy Time In: 13:00 Speech Therapy Time Out: 13:30 Total Billed Time: 30 Billed Treatment Time 1[address] Oct 08, 2018 13:51
--- NOTE | 2018-10-08 14:43 | Occupational Ther Daily Note ---
OT Current Status-Daily Note Subjective No pain reported. Appearance Pt. asleep in bed. Wakes up and agrees to work with OT. Mental Status/Objective Patient Orientation: Person, Place Therapy Code Descriptions/Definitions Functional [place] Measure: 0=Not Assessed/NA 4=Minimal Assistance 1=Total Assistance 5=Supervision or Setup 2=Maximal Assistance 6=Modified [place] 3=Moderate Assistance 7=Complete [place] ADL-Treatment Therapy Code Descriptions/Definitions Functional [place] Measure: 0=Not Assessed/NA 4=Minimal Assistance 1=Total Assistance 5=Supervision or Setup 2=Maximal Assistance 6=Modified [place] 3=Moderate Assistance 7=Complete [place] Therapy Quality Codes: 6 Independent with activity with or without an assistive device 5 Patient requires set up or clean up by helper. Patient completes activity by themselves 4 Supervision or touching assist (CGA). [place] provide cues , steadying assist 3 The helper provides less than half the effort to complete the activity 2 The helper provides more than half the effort to complete the activity 1 Dependent. The helper does all the effort to complete an activity 7 Patient refused to complete or attempt activity 9 The patient did not perform the activity before the current illness or injury 88 Not attempted due to Medical conditions or safety concerns Transfers (B, C, W/C) (FIM): 1 Other Treatment Pt. in bed. Transfers supine-sit with mod assist. Pt. able to scoot to edge and balance self while OT set up sit-stand lift. Transferred to wheelchair via lift. Pt. self propelled to therapy gym. At this point, began co-treat with PT. Stood in parallel bars x 4 with max x 2. OT facilitated hand placement and core engagement while PT blocked knees, and educated pt. on correct stance and posture. Pt. able to maintain each stand approximately 1-2 minutes with rest break in between. PT took pt. back to room to transfer him back to bed. Education OT Patient Education: Correct positioning, Modified ADL techniques, Progress toward Goal/Update tx plan, Purpose of tx/functional activities, Reviewed precautions, Rehab process, Transfer techniques Teaching Recipient: Patient Teaching Methods: Demonstration, Discussion Response to Teaching: Verbalize Understanding, Return Demonstration OT Short Term Goals Short Term Goals Time Frame: Oct 04, 2018 Grooming(FIM): 4 Bathing(FIM): 3 Upper Body Dressing(FIM): 4 Lower Body Dressing(FIM): 3 Toileting(FIM): 3 Transfers (B,C,W/C) (FIM): 4 Toilet/Commode Transfer(FIM): 3 Additional Short Term Goals: 1-Demonstrate ADL Tasks, 2-Verbalize Understanding, 3-ImproveStrength/Gilbert 1=Demonstrate adherence to instructed precautions during ADL tasks. 2=Patient will verbalize/demonstrate understanding of assistive dev ices/modifications for ADL. 3=Patient will improve strength/tolerance for activity to enable patient to perform ADL's. OT Miner Pick Goals Miner Pick Goals Time Frame: Oct 25, 2018 Eating (FIM): 6 Eating (QC): 6 Groomin Oral Hygiene (QC): 6 Bathing(FIM): 5 Shower/Bathe Self (QC): 5 Upper Body Dressing(FIM): 5 Upper Body Dressing (QC): 5 Lower Body Dressing(FIM): 5 Lower Body Dressing (QC): 5 On/Off Footwear (QC): 5 Toileting(FIM): 5 Toileting Hygiene (QC): 5 Toilet/Commode Transfer(FIM): 5 Toilet/Commode Transfer (QC): 5 Shower Transfer(FIM): 5 Additional Goals: 1-Demonstrate ADL Tasks, 2-Verbalize Understanding, 3- ImproveStrength/Gilbert 1=Demonstrate adherence to instructed precautions during ADL tasks. 2=Patient will verbalize/demonstrate understanding of assistive devices/modifications for ADL. 3=Patient will improve strength/tolerance for activity to enable patient to perform ADL's. OT Education/Plan Problem List/Assessment Assessment: Decreased Activ Tolerance, Decreased UE Strength, Dependent Transfers, Impaired Bed Mobility, Impaired Funct Balance, Impaired I ADL's, Impaired Self-Care Skills Pt demonstrates decreased mobility, strength, activity tolerance, and ADL functioning. Pt to benefit from skilled OT intervention for ADL training, transfers, strengthening, and home safety education to increase level of independence and allow safe discharge home. Discharge Recommendations Plan/Recommendations: Continue POC Treatment Plan/Plan of Care Treatment,Training & Education: Yes Patient would benefit from OT for education, treatment and training to promote independence in ADL's, mobility, safety and/or upper extremity function for ADL's. Plan of Care: ADL Retraining, Functional Mobility, Group Exercise/Act as Ind, U E Funct Exercise/Act Treatment Duration: Oct 25, 2018 Frequency: At least 5 of 7 days/Wk (IRF) Estimated Hrs Per Day: 1.5 hours per day Agreement: Yes Rehab Potential: Fair Time/GCodes Start Time: 13:50 Stop Time: 14:25 Total Time Billed (hr/min): 35 Billed Treatment Time 1, FA x 2- Partial co-treatment with PT. Please see above note for designated roles. ANURAG HENRIQUEZ OT Oct 08, 2018 14:43
--- NOTE | 2018-10-08 15:31 | Progress Note - Cardiology ---
Cardiology SOAP Progress Note Subjective: Sitting up in recliner at the bedside. States he feels better today. No fever reported. No c/o CP, palpitations or dyspnea. Continues to c/o gen weakness. Objective: I&O/Vital Signs 10/08/18 10/08/18 10/08/18 10/08/18 06:10 07:57 08:03 08:43 Temp 99.6 97.4 Pulse 87 Resp 20 B/P (MAP) 110/72 (85) Pulse Ox 97 93 O2 Delivery Room Air Room Air Room Air 10/08/18 10/08/18 10/08/18 10/08/18 11:42 12:02 13:00 14:51 Temp 100.7 100.4 99.8 98.3 Pulse 91 Resp 20 B/P (MAP) 153/53 (86) Pulse Ox 97 O2 Delivery Room Air 10/08/18 10/08/18 14:52 15:35 Temp 98.3 97.8 Pulse 84 Resp 16 B/P (MAP) 104/64 (77) Pulse Ox 92 O2 Delivery Room Air 10/08/18 00:00 Intake Total 1527.5 ml Output Total 1100 ml Balance 427.5 ml Weight (Pounds): 205 Weight (Ounces): 0.0 Weight (Calculated Kilograms): 92.482383 Constitutional: AAO x 3, well-developed, well-nourished Respiratory: No accessory muscle use; other (good bilat air entry, diminished at the bases) Cardiovascular: regular rate-rhythm, S1 and S2, systolic murmur (soft GRETA at card base) Gastrointestional: No tender; soft; No guarding, No rebound; audible bowel sounds Extremities: No swelling, No clubbing, No cyanosis Neurologic/Psychiatric: oriented x 3, grossly intact, power is 5/5 both on sides Skin: No rash on exposed areas, No ulcerations on exposed areas Results/Procedures: Labs Laboratory Tests 10/07/18 21:01: Glucometer 256H 10/08/18 00:01: Glucometer 245H 10/08/18 05:43: Glucometer 183H 10/08/18 06:20: White Blood Count 6.9, Red Blood Count 3.32L, Hemoglobin 10.0L, Hematocrit 30L, Mean Corpuscular Volume 91, Mean Corpuscular Hemoglobin 30, Mean Corpuscular Hemoglobin Concent 33, Red Cell Distribution Width 15.6H, Platelet Count 96L, Mean Platelet Volume 9.6, Neutrophils (%) (Auto) 81H, Lymphocytes (%) (Auto) 11L , Monocytes (%) (Auto) 8, Eosinophils (%) (Auto) 1, Basophils (%) (Auto) 0, Neutrophils # (Auto) 5.6, Lymphocytes # (Auto) 0.7L, Monocytes # (Auto) 0.5, Eosinophils # (Auto) 0.1, Basophils # (Auto) 0.0, Sodium Level 136, Potassium Level 3.7, Chloride Level 105, Carbon Dioxide Level 21, Anion Gap 10, Blood Urea Nitrogen 9, Creatinine 0.68, Estimat Glomerular Filtration Rate > 60, BUN/Creatinine Ratio 13, Glucose Level 170H, Calcium Level 7.8L, Corrected Calcium 8.9, Phosphorus Level 2.6, Magnesium Level 1.6L, Total Bilirubin 0.8, Aspartate Amino Transf (AST/SGOT) 21, Alanine Aminotransferase (ALT/SGPT) 44, Alkaline Phosphatase 87, Total Protein 5.1L, Albumin 2.6L, Vancomycin Level Trough 10.1 10/08/18 12:09: Glucometer 123H 10/08/18 15:34: Glucometer 150H Microbiology 10/07/18 Gram Stain, Resulted Pending 10/07/18 Sputum Culture - Preliminary, Resulted Usual upper respiratory evette Gram Negative Michael A/P: Assessment: Weakness and malaise and low grade fever and leucocytosis, systemic infection suspected, managed by Dr Saravia Relatively low bp lately necessitating d/c diltiazem and reduction in beta- sita. BP has since been better Hemoptysis and pulmonary hemorrhage necessitating discontinuation of Eliquis and aspirin in mid-August 2018; low-dose aspirin reinitiated on 10/01/18 Echo of 09/19/18: LVEF 60-65%, biatrial enlargement, mod MR, mild to mod TR, RVSP 45 mmHg 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 Cardiac cath from December 30, 2013 in which successful GAURI x 2, one to the proximal and one to the mid vessel LAD, was done. 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 Pacemaker currently in the VVIR mode, due to permanent atrial fib. The patient had a pulse generator change out on 12/18/2011. The device is functioning normally per last interrogation of September 23, 2018 (DIMITRIOS estimate 11 months) History of ulcerative colitis, being managed by Dr. Parsons and Dr. Seymour Stroke prophylaxis with Eliquis - currently being held d/t hemoptysis Sleep apnea for which he is following with Dr Mijares - Bi-pap therapy Hyperlipidemia being treated with rosuvastatin. Mild carotid arterial disease that has been followed by Dr. Mcdaniel History of cholecystectomy. 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 Junior has spoken with him and his and answered CV-related questions Physician Assessment Physician Assessment Gen weakness. No cp or palp or syncope or shortness of breath Still running intermittent, low-grade fever Lungs: good bilat air entry Cor: irreg with 2/6 MSM Ext: no c/c/e A&R * As documented in our note above that I updated (italics) and as noted below * I spoke with him and his and answered CV-related questions * Dr Raines covering our svce beginning tomorrrow VIET CHRISTIAN PIPE MACHINE OPERATOR Oct 08, 2018 15:31 TOSHA JUNIOR MD [facility] Oct 08, 2018 17:22
[2018-10-08 15:35] VITALS: BP 104/64
--- NOTE | 2018-10-08 16:07 | Pulmonary Progress Note ---
Subjective Time Seen by a Provider: 16:06 Subjective/Events-last exam Pt states he feels better. No complications noted. Sepsis Event Evaluation Height, Weight, BMI Height: 5'6.00" Weight: 205lbs. 0.0oz. [id number]; 33.1 BMI Method:Stated Focused Exam Lactate Level 10/06/18 17:42: Lactic Acid Level 1.44 Exam Exam Vital Signs Date Time Temp Pulse Resp B/P (MAP) Pulse Ox O2 Delivery O2 Flow Rate FiO2 10/08/18 15:35 97.8 84 16 104/64 (77) 92 Room Air 10/08/18 14:52 98.3 10/08/18 14:51 98.3 10/08/18 13:00 99.8 10/08/18 12:02 100.4 10/08/18 11:42 100.7 91 20 153/53 (86) 97 Room Air 10/08/18 08:43 93 Room Air 10/08/18 08:03 Room Air 10/08/18 07:57 97.4 87 20 110/72 (85) 97 Room Air 10/08/18 06:10 99.6 10/08/18 05:00 101.6 10/08/18 04:15 102.4 10/08/18 04:00 102.4 88 18 128/76 (93) 94 Room Air 10/08/18 00:00 97.3 10/07/18 22:20 97.8 85 18 113/71 (85) 96 Room Air 10/07/18 20:50 Room Air 10/07/18 20:30 99.5 103 18 95/60 (72) 95 Room Air 10/07/18 19:35 100.7 10/07/18 19:22 90 Room Air 10/07/18 18:58 101.9 10/07/18 18:34 101.9 103 20 150/79 (102) 95 Room Air 10/07/18 18:00 101.2 10/07/18 17:16 100.9 10/07/18 16:55 100.8 10/07/18 16:39 102.0 10/07/18 16:36 101.0 I & O 10/08/18 07:00 Intake Total 3247.5 ml Output Total 2075 ml Balance 1172.5 ml Height & Weight Height: 5'6.00" Weight: 205lbs. 0.0oz. [id number]; 33.1 BMI Method:Stated General Appearance: No Apparent Distress, WD/WN, Chronically ill HEENT: PERRL/EOMI, Normal ENT Inspection, Pharynx Normal, Moist Mucous Membranes Neck: Full Range of Motion, Normal Inspection, Non Tender, Supple Respiratory: Chest Non Tender, Lungs Clear, Normal Breath Sounds, No Accessory Muscle Use, No Respiratory Distress, Crackles (LLL subtle), Decreased Breath Sounds Cardiovascular: No Edema, No Gallop, No JVD, No Murmur, Irregularly Irregular Gastrointestinal: normal bowel sounds, non tender, soft, no organomegaly, no pulsatile mass Extremity: Normal Capillary Refill, Normal Inspection, Normal Range of Motion, Non Tender, No Calf Tenderness, No Pedal Edema Neurologic/Psychiatric: Alert, Oriented x3, No Motor/Sensory Deficits, Normal Mood/Affect, Motor Weakness (generalized all extremities 4/5) Skin: Normal Color, Warm/Dry Lymphatic: No Adenopathy Results Lab Laboratory Tests 10/06/18 17:42 10/07/18 05:50 10/08/18 06:20 Assessment/Plan Assessment/Plan Pulmonary hemorrhage -improved -Last hospitalization I check ANCA, Anti-Glomerular BM, and GENE - they were negative - echo shows EF 60-65% -monitor -prednisone taper Leukocytosis - probably secondary to prednisone -Monitor -Zosyn, and vanco -Lamas cultures including mid line tip culture DM -SSI may need to start Levemir BRIDGER -Out pt JUAN Don DO Oct 08, 2018 16:07
--- NOTE | 2018-10-08 16:09 | Physical Therapy Daily Note ---
PT Daily Note-Current Subjective Patient in wheelchair pre tx, agrees to PT, has no complaints of pain at rest. Will be co-treating with OT so they can assist with UE and trunk positioning during standing. Appearance Patient in recliner post tx with nurse call, phone, tray, all needs met. Mental Status Patient Orientation: Normal For Age Attachments: IV Transfers Therapy Code Descriptions/Definitions Functional [place] Measure: 0=Not Assessed/NA 4=Minimal Assistance 1=Total Assistance 5=Supervision or Setup 2=Maximal Assistance 6=Modified [place] 3=Moderate Assistance 7=Complete [place] Therapy Quality Codes: 6 Independent with activity with or without an assistive device 5 Patient requires set up or clean up by helper. Patient completes activity by themselves 4 Supervision or touching assist (CGA). [place] provide cues , steadying assist 3 The helper provides less than half the effort to complete the activity 2 The helper provides more than half the effort to complete the activity 1 Dependent. The helper does all the effort to complete an activity 7 Patient refused to complete or attempt activity 9 The patient did not perform the activity before the current illness or injury 88 Not attempted due to Medical conditions or safety concerns Transfers (B, C, W/C) (FIM): 2 Sit to/from Stand: 2 Patient stood in the parallel bars x5 with max assist and assist from OT for positioning of UE and trunk. He stood for about 30 seconds each time and needed rest breaks between. Weight Bearing Right Lower Extremity: Right Full Weight Bearing Left Lower Extremity: Left Full Weight Bearing Treatments transfers, standing Assessment Current Status: Fair Progress slowly improving weight bearing in legs. PT Short Term Goals Short Term Goals Time Frame: Oct 12, 2018 Transfers (B,C,W/C) (FIM): 4 Wheelchair Distance: 150' PT Halfway Goals Adjunct Mathematics Instructor Goals PT Halfway Goals Time Frame: Oct 26, 2018 Transfers (B,C,W/C) (FIM): 6 Sit to Lying (QC): 6 Lying-Sitting on Side/Bed(QC): 6 Sit to Stand (QC): 6 Rollin Roll Left to Right (QC): 6 Chair/Pru-sq-Ccvbv Xfer(QC): 6 Car Transfer (QC): 6 Does the Patient Walk: No and Walking Goal IS indicated Gait (FIM): 6 Gait distance (FIM): 3=150 ft Distance: 150 Walk 10 feet (QC): 6 Walk 10ft-Uneven Surface(QC): 6 Walk 50ft with 2 Turns (QC): 6 Walk 150 ft (QC): 6 Gait Level of Assist: 6 Gait Assistive Device: FWW Stairs (FIM): 6 # of Steps: 12 1 Step (curb) (QC): 6 4 Steps (QC): 6 12 Steps (QC): 6 Stairs Level Of Assist: 6 Picking up an Object (QC): 5 PT Plan Problem List Problem List: Activity Tolerance, Functional Strength, Safety, Balance, Gait, Transfer, Bed Mobility, ROM Treatment/Plan Treatment Plan: Continue Plan of Care Treatment Plan: Bed Mobility, Concurrent Therapy, Education, Functional Activity [place], Functional Strength, Group Therapy, Gait, Safety, Therapeutic Exercise, Transfers Treatment Duration: Oct 26, 2018 Frequency: At least 5 of 7 days/Wk (IRF) Estimated Hrs Per Day: 1.5 hours per day Patient and/or Family Agrees t: Yes Safety Risks/Education Patient Education: Transfer Techniques, Correct Positioning, Safety Issues Teaching Recipient: Patient Teaching Methods: Demonstration, Discussion Response to Teaching: Reinforcement Needed Time/GCodes Time In: 1400 Time Out: 1430 Total Billed Treatment Time: 30 Total Billed Treatment 1 visit FA 30' co-treated with OT for the whole 30 min MARIA ELENA ESQUIVEL PT Oct 08, 2018 16:09
--- NOTE | 2018-10-08 16:18 | NUR ---
Dr. Avila in to see pt, spoke w pt, & , new orders to reduce IVF to 50cc/hr x 24 hrs then d/c.
[2018-10-08] MEDS: MAGNESIUM 1 GM/100 ML IVPB 100 ML IV SCH ×2 (16:26→17:27)
[2018-10-08] MEDS ORDERED: MAGNESIUM 1 GM/100 ML IVPB 100 ML IV ONE (16:56)
[2018-10-08 18:45] VITALS: BP 125/65
[2018-10-08] MEDS: TAMSULOSIN 0.4 MG (FLOMAX) CAP PO SCH (18:54)
[2018-10-08] MEDS: LOSARTAN 25 MG (COZAAR) TAB PO SCH (19:28)
--- NOTE | 2018-10-08 19:47 | NUR ---
Pt ate supper, checked temp, & is 101.2, gave prn Tylenol as ordered, & notified Dr. Saravia.
[2018-10-08] MEDS: MELATONIN 3 MG TABLET PO PRN (21:29)
[2018-10-08] MEDS: MESALAMINE 1.2 GM PO SCH (21:31)
[2018-10-09] MEDS: PIPERACILLIN/TAZO 4.5 GM/NS 100 ML IV SCH ×8 (00:20→23:29)
[2018-10-09] MEDS ORDERED: TROUGH ORDER-PHARMACY XX NR ×2 (05:30→06:00)
[2018-10-09] MEDS: inSUlin ASPART (NovoLOG) 1 UNIT/0.01 ML (CHARGE PER UNIT) SC SCH ×4 (05:44→20:49)
[2018-10-09 05:51] VITALS: BP 124/54
[2018-10-09] MEDS: PANTOPRAZOLE 40 MG (PROTONIX) TAB PO SCH (06:18)
[2018-10-09] MEDS: LACTOBACILLUS ACIDOPHILUS (PROBIOTIC) CAPSULE PO SCH ×2 (06:18→16:05)
[2018-10-09 06:46] LABS: HEMOGLOBIN 9.2 G/DL (13.3-17.7); MEAN PLATELET VOLUME 9.7 FL (7.4-10.4); RED CELL DISTRIBUTION WIDTH 15.9 % (10.0-14.5); WHITE BLOOD COUNT 6.6 10^3/uL (4.3-11.0)
[2018-10-09 07:13] LABS: ALANINE AMINOTRANSFERASE 46 U/L (0-55); ALBUMIN 2.5 GM/DL (3.2-4.5); ALKALINE PHOSPHATASE 89 U/L (40-136); BILIRUBIN,TOTAL 0.8 MG/DL (0.1-1.0); BUN/CREATININE RATIO 11; CALCIUM 7.9 MG/DL (8.5-10.1); CARBON DIOXIDE 21 MMOL/L (21-32); CHLORIDE 105 MMOL/L (98-107); CREATININE SERUM 0.72 MG/DL (0.60-1.30); GFR ESTIMATED > 60; GLUCOSE 138 MG/DL (70-105); MAGNESIUM 1.8 MG/DL (1.8-2.4); POTASSIUM 3.6 MMOL/L (3.6-5.0); SODIUM 136 MMOL/L (135-145)
[2018-10-09 07:20] LABS: VANCOMYCIN,TROUGH 13.8 UG/ML (10.0-20.0)
[2018-10-09] MEDS: VANCOMYCIN 1 GM/NS 250 ML IVPB IV SCH ×2 (07:49)
[2018-10-09] MEDS: RT-ALBUTEROL/IPRATROPIUM 3 ML (DUONEB) VIAL INH SCH ×2 (08:16→20:11)
[2018-10-09] MEDS: LORATADINE (CLARITIN) 10 MG TAB PO SCH (08:22)
[2018-10-09] MEDS: ASPIRIN 81 MG CHEW (CHILDREN'S ASA) PO SCH (08:22)
[2018-10-09] MEDS: guaiFENesin/CODEINE (ROBITUSSIN AC) 10ML UDC PO PRN ×2 (08:22→16:05)
[2018-10-09] MEDS: meTOprolol TARTRATE 25 MG (LOPRESSOR) TABLET PO SCH ×2 (08:23→20:48)
[2018-10-09] MEDS: DILTIAZEM 120 MG (CARDIZEM CD) CAP PO SCH (08:23)
[2018-10-09] MEDS: DULoxetine 20 MG (CYMBALTA) CAP PO SCH ×2 (08:24→20:48)
[2018-10-09] MEDS: SENNA W/DOCUSATE (SENOKOT S) TABLET PO SCH ×2 (08:24→20:48)
[2018-10-09] MEDS: DICLOFENAC 1% GEL 100 GM (VOLTAREN) TUBE TOP SCH ×4 (08:24→20:49)
[2018-10-09 08:27] VITALS: BP 115/70
--- NOTE | 2018-10-09 08:36 | Progress Note ---
Subjective Date Seen by a Provider: Oct 09, 2018 Time Seen by a Provider: 08:30 Subjective/Events-last exam PT REPORTS THAT HE IS FEELING LESS FATIGUED TODAY - HE STILL HAS A COUGH, BUT DOES NOT FEEL QUITE WORN OUT YESTERDAY. 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 STAFF NOTES THAT HE IS STILL A TWO PERSON ASSIST TO STANDING AND HE DOES SEEM WEAK BUT NOT WEAK ON SUNDAY/SUNDAY THIS PAST WEEKEND. Review of Systems General: Fatigue, Malaise HEENT: No Head Aches Pulmonary: Dyspnea, Cough Cardiovascular: Edema (IMPROVING); No: Chest Pain Gastrointestinal: Other (SEVERAL STOOLS BETWEEN YESTERDAY AND THIS MORNING - PT DOES NOT REPORT IT DIARRHEA); No: Nausea, Abdominal Pain Genitourinary: Frequency Neurological: Weakness; No: Confusion Focused Exam Lactate Level 10/06/18 17:42: Lactic Acid Level 1.44 Objective Exam Last Set of Vital Signs Vital Signs Date Time Temp Pulse Resp B/P (MAP) Pulse Ox O2 Delivery O2 Flow Rate FiO2 10/09/18 08:27 91 115/70 (85) 91 Room Air 10/09/18 05:51 98.9 18 2.00 Capillary Refill : I&O Intake and Output 10/09/18 00:00 Intake Total 2820 ml Output Total 1925 ml Balance 895 ml Intake Oral 1600 ml IV Total 1220 ml Output Urine Total 1925 ml # Bowel Movements 1 General: Alert, Oriented X3, Cooperative, No Acute Distress, Other (FATIGUE) HEENT: Atraumatic, PERRLA Neck: Supple Lungs: Clear to Auscultation Heart: Regular Rate Abdomen: Normal Bowel Sounds, Soft, No Tenderness Extremities: No Cyanosis, Other (TRACE EDEMA) Skin: No Breakdown Neuro: Normal Speech, Cranial Nerves 3-12 NL Psych/Mental Status: Mental Status NL, Mood NL Results Lab Laboratory Tests 10/08/18 12:09: Glucometer 123H 10/08/18 15:34: Glucometer 150H 10/08/18 20:11: Glucometer 192H 10/09/18 05:19: Glucometer 153H 10/09/18 06:00: White Blood Count 6.6, Red Blood Count 3.08L, Hemoglobin 9.2L, Hematocrit 28L, Mean Corpuscular Volume 91, Mean Corpuscular Hemoglobin 30, Mean Corpuscular Hemoglobin Concent 33, Red Cell Distribution Width 15.9H, Platelet Count 104L, Mean Platelet Volume 9.7, Sodium Level 136, Potassium Level 3.6, Chloride Level 105, Carbon Dioxide Level 21, Anion Gap 10, Blood Urea Nitrogen 8, Creatinine 0.72, Estimat Glomerular Filtration Rate > 60, BUN/Creatinine Ratio 11, Glucose Level 138H, Calcium Level 7.9L, Corrected Calcium 9.1, Magnesium Level 1.8, Total Bilirubin 0.8, Aspartate Amino Transf (AST/SGOT) 27, Alanine Aminot ransferase (ALT/SGPT) 46, Alkaline Phosphatase 89, Total Protein 5.0L, Albumin 2.5L, Vancomycin Level Trough 13.8 Microbiology 10/07/18 Blood Culture - Preliminary, Resulted No growth 10/07/18 Gram Stain, Resulted Pending 10/07/18 Sputum Culture - Preliminary, Resulted Usual upper respiratory evette Klebsiella pneumoniae Assessment/Plan Assessment/Plan Assess & Plan/Chief Complaint PULMONARY HEMORRHAGE PNEUMONIA ATRIAL FIBRILLATION HYPERTENSION HYPERLIPIDEMIA ULCERATIVE COLITIS GENERALIZED WEAKNESS INSOMNIA CHRONIC ANTICOAGULATION USE BPH CRITICAL CARE MYOPATHY EMPHYSEMA HYPOMAGNESEMIA PULMONARY HEMORRHAGE WITH PNEUMONIA - PULMONARY HEMORRHAGE HAS RESOLVED, BUT PT SPIKED A FEVER OVER THIS PAST WEEKEND AND HE WAS PLACED BACK ON ZOSYN AND VANCOMYCIN, THE CHEST XRAY HAS BEEN NEGATIVE, HIS WHITE COUNTS HAVE REMAINED NORMAL, AND WE HAVE A SPUTUM WHICH IS SHOWING KLEBSIELLA - THE MIDLINE TIP IS BEING CULTURED AND THEREFORE I WOULD WAIT TO STOP THE VANCOMYCIN UNTIL THE CULTURE REPORT SHOWS GROWTH OR NO GROWTH ON THE MIDLINE TIP SINCE HE HAS BEEN ON THE ZOSYN AND VANC AND STILL HAVING SOME MILD FEVERS. SERIAL XRAYS AND SERIAL LABS ORDERED. ATRIAL FIBRILLATION - -ASPIRIN RESTARTED ON 10/02/18, ELIQUIS HAD TO BE STOPPED DUE TO RECURRENT PULMONARY HEMORRHAGES. - DEFER OTHER TREATMENT TO DR. JUNIOR - PT'S PRIMARY HAND FUNNEL COATER. HYPERTENSION - CONTINUE WITH METOPROLOL ORALLY HYPERLIPIDEMIA - STABLE - HOLD STATIN FOR NOW DUE TO HIS CRITICAL ILLNESS MYOPATHY ULCERATIVE COLITIS - RESTARTED LIALDA GENERALIZED WEAKNESS -PT WAS ADMITTED TO IN REHAB FOR THERAPY FOR STRENGTHENING. EMPHYSEMA - DX ON HIS CT SCAN - HE WILL NEED CONTINUED TREATMENT OF HIS ILLNESS WITH DR. HESS AN OUTPATIENT. INSOMNIA - RESTARTED HIS HOME MELATONIN DOSING. BPH - RESTARTED TAMSULOSIN. CONTINUE WITH INPT REHAB FOR TREATMENT OF CRITICAL CARE MYOPATHY HYPOMAGNESEMIA - MAGNESIUM IV AGAIN TODAY, MONITOR LABS Clinical Quality Measures DVT/VTE Risk/Contraindication: Risk Factor Score Per Nursin RFS Level Per Nursing on Admit: 4+=Very High CODEY BARILLAS MD Oct 09, 2018 08:36
--- NOTE | 2018-10-09 08:36 | NUR ---
Dr. Parsons here to see patient. Informed of Sputum Culture results, intermittent fever, and cough.
--- NOTE | 2018-10-09 09:27 | PM&R Progress Note ---
Subjective HPI/CC On Admission Date Seen by Provider: Oct 09, 2018 Time Seen by Provider: 09:15 Chief complaint: Severe myopathy from critical illness History of present illness: This is a 78-year-old white male patient of Dr. Parsons who presents after a complex ICU stay which included intubation due to respiratory insufficiency due to recurrent pulmonary hemorrhage requiring airway protection and placed on treatment for hospital acquired pneumonia. Patient is not an anticoagulation candidate at this current time due to the recurrent hemorrhages. Patient is doing extremely well very weak and will require intensive rehabilitation in order to return home. Prior level of functioning was independent with ADLs and ambulation. He does have a history of inflammatory bowel disease of which he has a lot of diarrhea which is chronic. He denies any significant pain and he does have lower extremity edema we have initiated LUIS EDUARDO her for compression therapy. His daughter from [facility] is here visiting him. I checked meds and labs. Blood pressure has been mildly elevated at 160/77 but he is not having any more dysphagia as a complication from intubation and we will discontinue Head catheter and telemetry. Subjective/Events-last exam Cognition is varied at times. Two person therapy today. Decreasing function from yesterday. Klebsiella in his sputum was noted so Vancomycin was discontinued by Dr. Mijares, Zosyn is maintained until culture returns. Was given cough medicine. Fever of 102 yesterday evening. Incontinent at times. Will likely need to talk about Sunday [place] either a [place] [facility] or hopefully he would be able to gain enough function to return home. Conferred with RN Reviewed therapy notes Review of Systems General: Fatigue Pulmonary: Dyspnea, Cough Focused Exam Lactate Level Objective Exam Vital Signs Vital Signs Date Time Temp Pulse Resp B/P (MAP) Pulse Ox O2 Delivery O2 Flow Rate FiO2 10/09/18 18:16 98.6 10/09/18 17:16 92 Nasal Cannula 3.50 10/09/18 17:01 70 26 125/71 (89) Capillary Refill : General Appearance: No Apparent Distress, WD/WN, Chronically ill HEENT: PERRL/EOMI, Normal ENT Inspection, Pharynx Normal, Moist Mucous Memb ranes Neck: Full Range of Motion, Normal Inspection, Non Tender, Supple Respiratory: Chest Non Tender, Lungs Clear, Normal Breath Sounds, No Accessory Muscle Use, No Respiratory Distress, Crackles (LLL subtle), Decreased Breath Sounds, Rales (L>R) Cardiovascular: No Edema, No Gallop, No JVD, No Murmur, Irregularly Irregular Gastrointestinal: Normal Bowel Sounds, No Organomegaly, No Pulsatile Mass, Non Tender, Soft Back: Normal Inspection, No CVA Tenderness, No Vertebral Tenderness Extremity: Normal Capillary Refill, Normal Inspection, Normal Range of Motion, Non Tender, No Calf Tenderness, No Pedal Edema Neurologic/Psychiatric: Alert, Oriented x3, No Motor/Sensory Deficits, Normal Mood/Affect, Motor Weakness (generalized all extremities 4/5) Skin: Normal Color, Warm/Dry Lymphatic: No Adenopathy Results/Procedures Lab Laboratory Tests 10/09/18 06:00 Patient resulted labs reviewed. FIM Transfers Therapy Code Descriptions/Definitions Functional [place] Measure: 0=Not Assessed/NA 4=Minimal Assistance 1=Total Assistance 5=Supervision or Setup 2=Maximal Assistance 6=Modified [place] 3=Moderate Assistance 7=Complete [place] Therapy Quality Codes: 6 Independent with activity with or without an assistive device 5 Patient requires set up or clean up by helper. Patient completes activity by themselves 4 Supervision or touching assist (CGA). [place] provide cues , steadying assist 3 The helper provides less than half the effort to complete the activity 2 The helper provides more than half the effort to complete the activity 1 Dependent. The helper does all the effort to complete an activity 7 Patient refused to complete or attempt activity 9 The patient did not perform the activity before the current illness or injury 88 Not attempted due to Medical conditions or safety concerns Transfers (B, C, W/C) (FIM): 2 Scootin Rollin Roll Left to Right (QC): 2 Supine to/from Sit: 4 Sit to/from Stand: 2 Sit to Lying (QC): 2 Sit to Stand (QC): 1 Chair/Dwx-yt-Qeobp Xfer(QC): 1 Bed to/from Chair: 2 Car Transfer (QC): 88 (Dependent on sit<->stand lift and poor trunk control currently) Gait Training Does the Patient Walk?: No and Walking Goal IS indicated Gait (FIM): 0 Distance (FIM): 0=does not occure Walk 10 feet (QC): 88 Walk 50 ft with 2 Turns(QC): 88 Walk 150 ft (QC): 88 Walking 10ft/uneven surface-QC: 88 Wheelchair Training Does the Pt Use a Wheelchair?: Yes Wheelchair (FIM): 5 Wheelchair Distance: 3=150 ft Distance: 150' Wheelchair Level of Assist: 5 Wheel 50 ft with 2 turns (QC): 5 Wheel 150 ft (QC): 5 Type of Wheelchair: Manual Stair Training Stairs (FIM): 0 1 Step (curb) (QC): 88 4 Steps (QC): 88 12 Steps (QC): 88 Balance Picking up an Object (QC): 88 Mental Status/Objective Comprehension: 6 Expression: 5 Social Interaction: 6 Problem Solvin Memory: 3 ADL-Treatment Feedin Eating (QC): 5 Groomin Oral Hygiene (QC): 5 Bathin (SBA with LH in shower on rolling shower chair.) Bathing Location: L Arm, R Arm, L Upper Leg, R Upper Leg, Chest, Abdomen, Perineal Area Shower/Bathe Self (QC): 4 Upper Extremity Dressin Upper Body Dressing (QC): 4 Lower Extremity Dressin Lower Body Dressing (QC): 3 On/Off Footwear (QC): 2 Toiletin (Pt requires assist x2 to manipulate clothing and cleanse self.) Toileting Hygiene (QC): 1 Toilet/Commode Transfer: 1 Toilet Transfer (QC): 1 Shower: 1 Assessment/Plan Assessment and Plan Assess & Plan/Chief Complaint Assessment: Acute fever placed on empiric abx and need to monitor closely all images and labs reviewed and appreciate Jaqueline Gillis and Austni on this complex case Acute steroid myopathy now improved 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 pulmonary hemorrhage no longer an anticoagulation candidate at this current time Status post pneumonia Chronic atrial fibrillation Hypertension Hyperlipidemia Ulcerative colitis Insomnia BPH COPD Leukocytosis continues to have elevated wbc Insomnia Cognitive deficit? Likely due to steroids, hopefully will completely resolve Hypokalemia Plan: Monitor labs Monitor fever, empiric abx O2 Nebs BP management IRF therapy protocols Melatonin home supply Monitor crackles on bases Replace potassium NH discussion (1) Myopathy (2) BRIDGER treated with BiPAP (3) CAD S/P percutaneous coronary angioplasty Onset Date: 12/31/2013 (4) Pacemaker (5) Asthma (6) Hx of CABG (7) Leukocytosis (8) Weakness generalized (9) Anemia (10) COPD (chronic obstructive pulmonary disease) (11) Hypoxemia (12) Edema (13) Ulcerative colitis (14) Fecal incontinence (15) Contraindication to anticoagulation therapy (16) Pulmonary hemorrhage (17) Acute insomnia (18) Leukocytosis KOBI ESTEBAN DO Oct 09, 2018 09:27
--- NOTE | 2018-10-09 10:20 | Speech Therapy Daily Note ---
Speech Daily Progress Note Subjective Date Seen by Provider: Oct 09, 2018 Time Seen by Provider: 00:30 The patient stated he was feeling a little better today. Objective The patient completed problem solving tasks related to his daily needs at 85% with minimal cuing. Assessment Assessment Current Status: Good Progress Treatment Plan Continue Plan of Care Communication Comprehension: 6 Expression: 5 Social Cognition Social Interaction: 6 Problem Solvin Memory: 3 Speech Short Term Goals Short Term Goals Short Term Goals 1) The patient will complete memory tasks at 80% or greater with minimal verbal cues. 2) The patient will complete problem solving tasks at 80% or greater with minimal verbal cues. 3) The patient will complete safety awareness tasks at 80% or greater with minimal verbal cues. Speech [facility] Goals Dressage Instructor Goals The patient will increase cognitive skills for safety and independence. Speech-Plan Patient/Family Goals Patient/Family Goals: The patient plans on returning home with his post rehab. Treatment Plan Speech Therapy Treatment Plan: Continue Plan of Care The patient is progressing with therapy. Treatment Duration: Oct 18, 2018 Frequency: 4 times per week Estimated Hrs Per Day: .5 hour per day Rehab Potential: Fair Barriers to Learning: Patient has mild cognitive deficits Pt/Family Agrees to Plan: Yes Safety Risks/Education Teaching Recipient: Patient Teaching Methods: Discussion Response to Teaching: Verbalize Understanding Education Topics Provided: Safety within his room Time Speech Therapy Time In: 08:30 Speech Therapy Time Out: 09:00 Total Billed Time: 30 Billed Treatment Time [address] Oct 09, 2018 10:20
--- NOTE | 2018-10-09 11:14 | Physical Therapy Daily Note ---
PT Daily Note-Current Subjective Pt sitting in W/c in room upon arrival. Pt agrees to PT. Pain Location: No Pain Reported Mental Status Patient Orientation: Person, Place, Situation Attachments: IV Transfers Therapy Code Descriptions/Definitions Functional [place] Measure: 0=Not Assessed/NA 4=Minimal Assistance 1=Total Assistance 5=Supervision or Setup 2=Maximal Assistance 6=Modified [place] 3=Moderate Assistance 7=Complete [place] Therapy Quality Codes: 6 Independent with activity with or without an assistive device 5 Patient requires set up or clean up by helper. Patient completes activity by themselves 4 Supervision or touching assist (CGA). [place] provide cues , steadying assist 3 The helper provides less than half the effort to complete the activity 2 The helper provides more than half the effort to complete the activity 1 Dependent. The helper does all the effort to complete an activity 7 Patient refused to complete or attempt activity 9 The patient did not perform the activity before the current illness or injury 88 Not attempted due to Medical conditions or safety concerns Scootin Weight Bearing Right Lower Extremity: Right Full Weight Bearing Left Lower Extremity: Left Full Weight Bearing Wheelchair Training Does the Pt Use a Wheelchair?: Yes Wheelchair (FIM): 5 Wheelchair Distance: 3=150 ft Distance: 150' x2 Wheelchair Level of Assist: 5 Wheel 50 ft with 2 turns (QC): 5 Wheel 150 ft (QC): 5 Type of Wheelchair: Manual Pt needs VC to remind for wider turns for W/C mobility. Exercises Seated Therapy Exercises: Ankle pumps, Long arc quads, Hip flexion, Kicking activity, Hip abd/add, Glut set Seated Reps: 15 Treatments Pt propels W/C in hallway. Pt completes Seated EX with RB as needed. Pt and LINE BUILDER discuss pt's progress and what pt can continue to work on to improve for D/C. Pt propels W/C in hallway before returning to room at end of tx. Pt has all needs met, call light in hand. Assessment Current Status: Good Progress Pt tolerates tx well. Pt is motivated to get home and would like to D/C JINNY. LINE BUILDER explained needs continued antibiotic at this time as well as improved s trength for standing and evenly stairs. PT Short Term Goals Short Term Goals Time Frame: Oct 12, 2018 Transfers (B,C,W/C) (FIM): 4 Wheelchair Distance: 150' PT Webmethods Consultant Goals [facility] Goals PT Webmethods Consultant Goals Time Frame: Oct 26, 2018 Transfers (B,C,W/C) (FIM): 6 Sit to Lying (QC): 6 Lying-Sitting on Side/Bed(QC): 6 Sit to Stand (QC): 6 Rollin Roll Left to Right (QC): 6 Chair/[place]-Pyprk Xfer(QC): 6 Car Transfer (QC): 6 Does the Patient Walk: No and Walking Goal IS indicated Gait (FIM): 6 Gait distance (FIM): 3=150 ft Distance: 150 Walk 10 feet (QC): 6 Walk 10ft-Uneven Surface(QC): 6 Walk 50ft with 2 Turns (QC): 6 Walk 150 ft (QC): 6 Gait Level of Assist: 6 Gait Assistive Device: FWW Stairs (FIM): 6 # of Steps: 12 1 Step (curb) (QC): 6 4 Steps (QC): 6 12 Steps (QC): 6 Stairs Level Of Assist: 6 Picking up an Object (QC): 5 PT Plan Problem List Problem List: Activity Tolerance, Functional Strength, Safety, Gait, Transfer Treatment/Plan Treatment Plan: Continue Plan of Care Treatment Plan: Bed Mobility, Concurrent Therapy, Education, Functional Activity [place], Functional Strength, Group Therapy, Gait, Safety, Therapeutic Exercise, Transfers Treatment Duration: Oct 26, 2018 Frequency: At least 5 of 7 days/Wk (IRF) Estimated Hrs Per Day: 1.5 hours per day Patient and/or Family Agrees t: Yes Safety Risks/Education Patient Education: Correct Positioning, W/C Management, Safety Issues Teaching Recipient: Patient Teaching Methods: Discussion Response to Teaching: Verbalize Understanding Time/GCodes Time In: 900 Time Out: 945 Total Billed Treatment Time: 45 Total Billed Treatment 1, WCH (15m), EX (20m) & FA (10m) G Codes Necessary: No YECENIA NGUYEN LINE BUILDER Oct 09, 2018 11:14
--- NOTE | 2018-10-09 11:44 | Occupational Ther Daily Note ---
OT Current Status-Daily Note Subjective Pt. reports that he is tired, but reports no pain. Appearance Pt. is up in chair. States that he has fresh clothing on, and has already had a sponge bath. Declines showering at this time. Mental Status/Objective Patient Orientation: Person Therapy Code Descriptions/Definitions Functional [place] Measure: 0=Not Assessed/NA 4=Minimal Assistance 1=Total Assistance 5=Supervision or Setup 2=Maximal Assistance 6=Modified [place] 3=Moderate Assistance 7=Complete [place] Attachments: IV ADL-Treatment Therapy Code Descriptions/Definitions Functional Stafford Measure: 0=Not Assessed/NA 4=Minimal Assistance 1=Total Assistance 5=Supervision or Setup 2=Maximal Assistance 6=Modified [place] 3=Moderate Assistance 7=Complete [place] Therapy Quality Codes: 6 Independent with activity with or without an assistive device 5 Patient requires set up or clean up by helper. Patient completes activity by themselves 4 Supervision or touching assist (CGA). [place] provide cues , steadying assist 3 The helper provides less than half the effort to complete the activity 2 The helper provides more than half the effort to complete the activity 1 Dependent. The helper does all the effort to complete an activity 7 Patient refused to complete or attempt activity 9 The patient did not perform the activity before the current illness or injury 88 Not attempted due to Medical conditions or safety concerns Lower Body Dressing (FIM): 4 (Pt. practiced doffing/donning slipper socks with AE x 2. Requires min assist overall.) Lower Body Dressing (QC): 4 On/Off Footwear (QC): 4 Transfers (B, C, W/C) (FIM): 1 Pt. up in wheelchair. Agrees to go to therapy gym. Pt. attempts to propel self in wheelchair, as he has done each day before. Pt. had great difficulty due to fatigue and OT assisted him in wheelchair. Completed dumbbell exercises x 2 lbs. x 15 reps x 4 exercises in all planes with rest breaks in between. Pt. then donned 1 lb. wrist weights and completed arm arc activity to increase UE strength. Pt. required several rest breaks with this task. Attempted to self propel back to room but does not have the strength. OT took pt. back to room and transferred to bed with sit-stand lift. All needs met in bed. Education OT Patient Education: Correct positioning, Exercise program, Modified ADL techniques, Progress toward Goal/Update tx plan, Purpose of tx/functional activities, Reviewed precautions, Rehab process, Transfer techniques Teaching Recipient: Patient Teaching Methods: Demonstration, Discussion Response to Teaching: Verbalize Understanding, Return Demonstration OT Short Term Goals Short Term Goals Time Frame: Oct 04, 2018 Grooming(FIM): 4 Bathing(FIM): 3 Upper Body Dressing(FIM): 4 Lower Body Dressing(FIM): 3 Toileting(FIM): 3 Transfers (B,C,W/C) (FIM): 4 Toilet/Commode Transfer(FIM): 3 Additional Short Term Goals: 1-Demonstrate ADL Tasks, 2-Verbalize Understan ding, 3-ImproveStrength/Gilbert 1=Demonstrate adherence to instructed precautions during ADL tasks. 2=Patient will verbalize/demonstrate understanding of assistive devices/modifications for ADL. 3=Patient will improve strength/tolerance for activity to enable patient to perform ADL's. OT Chcf Goals Tape Recorder Mechanic Goals Time Frame: Oct 25, 2018 Eating (FIM): 6 Eating (QC): 6 Groomin Oral Hygiene (QC): 6 Bathing(FIM): 5 Shower/Bathe Self (QC): 5 Upper Body Dressing(FIM): 5 Upper Body Dressing (QC): 5 Lower Body Dressing(FIM): 5 Lower Body Dressing (QC): 5 On/Off Footwear (QC): 5 Toileting(FIM): 5 Toileting Hygiene (QC): 5 Toilet/Commode Transfer(FIM): 5 Toilet/Commode Transfer (QC): 5 Shower Transfer(FIM): 5 Additional Goals: 1-Demonstrate ADL Tasks, 2-Verbalize Understanding, 3- ImproveStrength/Gilbert 1=Demonstrate adherence to instructed precautions during ADL tasks. 2=Patient will verbalize/demonstrate understanding of assistive devices/modifications for ADL. 3=Patient will improve strength/tolerance for activity to enable patient to perform ADL's. OT Education/Plan Problem List/Assessment Assessment: Decreased Activ Tolerance, Decreased UE Strength, Dependent Transfers, Impaired Bed Mobility, Impaired Funct Balance, Impaired I ADL's, Impaired Self-Care Skills Pt demonstrates decreased mobility, strength, activity tolerance, and ADL functioning. Pt to benefit from skilled OT intervention for ADL training, transfers, strengthening, and home safety education to increase level of independence and allow safe discharge home. Discharge Recommendations Plan/Recommendations: Continue POC Treatment Plan/Plan of Care Treatment,Training & Education: Yes Patient would benefit from OT for education, treatment and training to promote independence in ADL's, mobility, safety and/or upper extremity function for ADL's. Plan of Care: ADL Retraining, Functional Mobility, Group Exercise/Act as Ind, UE Funct Exercise/Act Treatment Duration: Oct 25, 2018 Frequency: At least 5 of 7 days/Wk (IRF) Estimated Hrs Per Day: 1.5 hours per day Agreement: Yes Rehab Potential: Fair Time/GCodes Start Time: 10:00 Stop Time: 10:45 Total Time Billed (hr/min): 45 Billed Treatment Time 1, FA x 30minutes, Ex x 15minutes ANURAG HENRIQUEZ OT Oct 09, 2018 11:44
--- NOTE | 2018-10-09 13:04 | Diagnostic Imaging Report ---
INDICATION: Cough and fever. TIME OF EXAM: 12:38 p.m. Correlation is made with prior study of 10/08/2018. FINDINGS: Changes of median sternotomy are noted. Cardiac pacemaker remains in place. Patient has developed some left upper lobe and right basilar infiltrate most suggestive of pneumonia. No effusion or pneumothorax is seen. IMPRESSION: Developing bilateral pulmonary infiltrates consistent with pneumonia. Dictated by: Dictated on workstation # [id number]
--- NOTE | 2018-10-09 14:13 | NUR ---
Chest XRAY results faxed to Dr. Parsons's office with confirmation. Septic Tank Setter notified.
--- NOTE | 2018-10-09 14:20 | Therapy Group Daily Note ---
Therapy Daily Group Note Patient Education Topic Home Safety, Fall Prevention, Home Safety Exercises LE Seated Exercise, LE Standing Exercise, Stretching, UE Exercise Session Ratio (pt:therapist): 3:1 Goal of Session: Education on ARU Expectations, Energy Conservation Tech., Home Safety Strategies, UE/LE Strengthing, Use of Adaptive Equipment Goal Met for this Session: Yes Pt Benefit of Group: Contributions to Others, F/U Use of Strategies @Home, Increased Functional Safety, Increased Functional Strength, Improved Cognition, Recognition of Peers, Socialization Other/Notes Pt transported via w/c to OT/PT group in therapy gym. Group consisted of introductions, home safety techniques/ strategies , home modifications, pt lead UE/LE seated exercises,benefits of exercise and sit to stands, and use of sheet metal worker to pick items up from floor. Pt introduced self appropriately and actively listened to peers. group asked home safety questions and had to throw item on floor to answer questions. post answering question pt had to pick item up from floor and complete peer driven ex. to lead. Pt able to complete exercises appropriately with skilled instruction for correct technique. After therapy, pt transferred back to bed MAX A A 2 person assist. All needs met in room. Start Time: 13:00 Stop Time: 14:05 Total Billed Treatment GRP 65 minutes PAMELA JAFFE OT Oct 09, 2018 14:20
[2018-10-09] MEDS: ACETAMINOPHEN 500 MG TAB (TYLENOL) PO PRN (16:12)
--- NOTE | 2018-10-09 16:48 | NUR ---
Temp- 102.2, 02 79% on room air. Patient placed on 3.5 L per NC... sats came up to 92%. Dr. Mijares notified. Also notified of chest XRAY results from today. Orders to continue Zosyn and 02 TKS between 90-95%.
[2018-10-09 17:01] VITALS: BP 125/71
[2018-10-09] MEDS: TAMSULOSIN 0.4 MG (FLOMAX) CAP PO SCH (18:06)
[2018-10-09] MEDS: LOSARTAN 25 MG (COZAAR) TAB PO SCH (18:06)
[2018-10-09 20:29] VITALS: BP 124/70
[2018-10-09] MEDS: MESALAMINE 1.2 GM PO SCH (20:48)
--- NOTE | 2018-10-09 23:17 | Cardiology Progress Note ---
Cardiology SOAP Progress Note Subjective: Mild shortness of breath. Objective: I&O/Vital Signs 10/10/18 10/10/18 10/10/18 10/10/18 14:52 14:54 15:06 15:38 Temp 101.0 101.0 100.1 Pulse 74 67 Resp 29 16 B/P (MAP) 135/72 (93) 130/68 (88) Pulse Ox 94 90 92 O2 Delivery Nasal Cannula Nasal Cannula NIV CPAP O2 Flow Rate 6.00 4.00 10/10/18 20:45 Pulse Ox 94 FiO2 3 10/10/18 00:00 Intake Total 1240 ml Output Total 325 ml Balance 915 ml Weight (Pounds): 182 Weight (Ounces): 3.2 Weight (Calculated Kilograms): 82.618068 Constitutional: AAO x 3, well-developed, well-nourished Respiratory: No accessory muscle use; other (good bilat air entry, diminished at the bases) Cardiovascular: regular rate-rhythm, S1 and S2, systolic murmur (soft GRETA at card base) Gastrointestional: No tender; soft; No guarding, No rebound; audible bowel sounds Extremities: No swelling, No clubbing, No cyanosis Neurologic/Psychiatric: oriented x 3, grossly intact, power is 5/5 both on sides Skin: No rash on exposed areas, No ulcerations on exposed areas Results/Procedures: Labs Laboratory Tests 10/10/18 05:18: Glucometer 152H 10/10/18 06:14: White Blood Count 5.8, Red Blood Count 2.98L, Hemoglobin 8.9L, Hematocrit 27L, Mean Corpuscular Volume 91, Mean Corpuscular Hemoglobin 30, Mean Corpuscular Hemoglobin Concent 33, Red Cell Distribution Width 15.6H, Platelet Count 99L, Mean Platelet Volume 10.1, Sodium Level 135, Potassium Level 3.2L, Chloride Level 104, Carbon Dioxide Level 21, Anion Gap 10, Blood Urea Nitrogen 15, Creatinine 1.30, Estimat Glomerular Filtration Rate 54, BUN/Creatinine Ratio 12, Glucose Level 135H, Calcium Level 8.3L, Corrected Calcium 9.6, Magnesium Level 1.7L, Total Bilirubin 0.7, Aspartate Amino Transf (AST/SGOT) 30, Alanine Aminotransferase (ALT/SGPT) 44, Alkaline Phosphatase 85, Total Protein 5.1L, Albumin 2.4L 10/10/18 11:01: Glucometer 139H 10/10/18 15:35: Glucometer 172H Microbiology 10/08/18 Catheter Tip Culture - Preliminary, Resulted No growth 10/10/18 C. difficile DNA Amplification, Resulted Pending 10/10/18 C. difficile GDH Antigen & Toxins - Final, Resulted 10/07/18 Gram Stain - Final, Complete 10/07/18 Sputum Culture - Final, Complete Usual upper respiratory evette Klebsiella pneumoniae A/P: Assessment/Dx: Weakness and malaise and low grade fever and leucocytosis, systemic infection suspected, managed by Dr Saravia Relatively low bp lately necessitating d/c diltiazem and reduction in beta- sita. BP has since been better Hemoptysis and pulmonary hemorrhage necessitating discontinuation of Eliquis and aspirin in mid-August 2018; low-dose aspirin reinitiated on 10/01/18 Echo of 09/19/18: LVEF 60-65%, biatrial enlargement, mod MR, mild to mod TR, RVSP 45 mmHg 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 Cardiac cath from December 30, 2013 in which successful GAURI x 2, one to the proximal and one to the mid vessel LAD, was done. 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 Pacemaker currently in the VVIR mode, due to permanent atrial fib. The patient had a pulse generator change out on 12/18/2011. The device is functioning normally per last interrogation of September 23, 2018 (DIMITRIOS estimate 11 months) History of ulcerative colitis, being managed by Dr. Parsons and Dr. Seymour Stroke prophylaxis with Eliquis - currently being held d/t hemoptysis Sleep apnea for which he is following with Dr Mijares - Bi-pap therapy Hyperlipidemia being treated with rosuvastatin. Mild carotid arterial disease that has been followed by Dr. Mcdaniel History of cholecystectomy. 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 Please call me if you have any questions. Naren Raines MD, FACP, FACC, FSCAI, FHRS, CCDS Interventional Cardiology Cardiac Electrophysiology Vascular Medicine and Endovascular Interventions Deepak RAINES MD Oct 09, 2018 23:17
[2018-10-10] MEDS: ACETAMINOPHEN 500 MG TAB (TYLENOL) PO PRN ×2 (01:43→14:52)
[2018-10-10 05:34] VITALS: BP 117/70
[2018-10-10] MEDS: inSUlin ASPART (NovoLOG) 1 UNIT/0.01 ML (CHARGE PER UNIT) SC SCH ×2 (05:50→11:12)
[2018-10-10] MEDS: FUROSEMIDE 20 MG (LASIX) TAB PO SCH (06:36)
[2018-10-10] MEDS: KCL 10 MEQ TAB (MICRO K) PO SCH (06:36)
[2018-10-10] MEDS: LACTOBACILLUS ACIDOPHILUS (PROBIOTIC) CAPSULE PO SCH (06:36)
[2018-10-10] MEDS: PANTOPRAZOLE 40 MG (PROTONIX) TAB PO SCH (06:36)
[2018-10-10] MEDS: PIPERACILLIN/TAZO 4.5 GM/NS 100 ML IV SCH ×4 (06:37→15:44)
[2018-10-10 07:02] LABS: HEMOGLOBIN 8.9 G/DL (13.3-17.7); MEAN PLATELET VOLUME 10.1 FL (7.4-10.4); RED CELL DISTRIBUTION WIDTH 15.6 % (10.0-14.5); WHITE BLOOD COUNT 5.8 10^3/uL (4.3-11.0)
[2018-10-10 07:33] LABS: ALBUMIN 2.4 GM/DL (3.2-4.5); BILIRUBIN,TOTAL 0.7 MG/DL (0.1-1.0); CALCIUM 8.3 MG/DL (8.5-10.1); CREATININE SERUM 1.3 MG/DL (0.60-1.30); MAGNESIUM 1.7 MG/DL (1.8-2.4); POTASSIUM 3.2 MMOL/L (3.6-5.0); TOTAL PROTEIN 5.1 GM/DL (6.4-8.2)
[2018-10-10] MEDS: RT-ALBUTEROL/IPRATROPIUM 3 ML (DUONEB) VIAL INH SCH (07:59)
--- NOTE | 2018-10-10 08:03 | Speech Therapy Daily Note ---
Speech Daily Progress Note Subjective Date Seen by Provider: Oct 10, 2018 Time Seen by Provider: 00:30 The patient was in bed eating breakfast when I entered his room this am. Objective The patient completed a series of problem solving tasks with 80% accuracy given minimal cues. Assessment Assessment Current Status: Good Progress Treatment Plan Continue Plan of Care Communication Comprehension: 6 Expression: 5 Social Cognition Social Interaction: 6 Problem Solvin Memory: 3 Speech Short Term Goals Short Term Goals Short Term Goals 1) The patient will complete memory tasks at 80% or greater with minimal verbal cues. 2) The patient will complete problem solving tasks at 80% or greater with minimal verbal cues. 3) The patient will complete safety awareness tasks at 80% or greater with minimal verbal cues. Speech Hospital Administrative Assistant Goals Group Home Goals The patient will increase cognitive skills for safety and independence. Speech-Plan Patient/Family Goals Patient/Family Goals: The patient plans to return home with his post rehab. Treatment Plan Speech Therapy Treatment Plan: Continue Plan of Care The patient is making progress with some days being more evident than others. Treatment Duration: Oct 23, 2018 Frequency: 4 times per week Estimated Hrs Per Day: .5 hour per day Rehab Potential: Fair Barriers to Learning: Patient has cognitive deficits. Pt/Family Agrees to Plan: Yes Safety Risks/Education Teaching Recipient: Patient Teaching Methods: Discussion Response to Teaching: Verbalize Understanding Education Topics Provided: Safety within his room, with oral intake as well Time Speech Therapy Time In: 07:15 Speech Therapy Time Out: 07:45 Total Billed Time: 30 Billed Treatment Time [address] Oct 10, 2018 08:03
--- NOTE | 2018-10-10 08:44 | Progress Note ---
Subjective Date Seen by a Provider: Oct 10, 2018 Time Seen by a Provider: 08:30 Subjective/Events-last exam PT REPORTS THAT HE IS FEELING BETTER TODAY DESPITE FEVER OF 102.2 LAST NIGHT. HE STATES THAT HE IS COUGHING UP MORE SPUTUM, HE NOTES THAT THE SPUTUM APPEARS TO BE CLEARING. HE COMPLAINS OF DIARRHEA THIS MORNING - STAFF IN THE ROOM NOTES A COPIOUS AMOUNT OF DIARRHEA. HE DENIES ABDOMINAL PAIN. HE STATES THAT HE IS FEELING STRONGER. HE NOTES THAT HE WAS ABLE TO STAND WITH ONLY ONE PERSON TO ASSIST HIM AND HE WAS ABLE TO STAND FOR ABOUT 2 MINUTES WHICH IS MORE THAN HE HAS DONE FOR THE PAST 5 DAYS. Review of Systems General: Fatigue, Malaise, Appetite (IMPROVED) HEENT: No Head Aches, No Dysphasia Pulmonary: Dyspnea, Cough Cardiovascular: No: Chest Pain, Edema Gastrointestinal: Diarrhea; No: Nausea, Abdominal Pain Genitourinary: Frequency Musculoskeletal: No: back pain Neurological: Weakness; No: Confusion Objective Exam Last Set of Vital Signs Vital Signs Date Time Temp Pulse Resp B/P (MAP) Pulse Ox O2 Delivery O2 Flow Rate FiO2 10/10/18 07:59 90 Nasal Cannula 3.00 10/10/18 05:34 97.7 65 20 117/70 (86) Capillary Refill : I&O Intake and Output 10/09/18 23:59 Intake Total 2260 ml Output Total 725 ml Balance 1535 ml Intake Oral 1400 ml IV Total 860 ml Output Urine Total 725 ml # Voids 1 # Bowel Movements 2 General: Alert, Oriented X3, Cooperative, No Acute Distress HEENT: Atraumatic, PERRLA Neck: Supple Lungs: Clear to Auscultation Heart: Regular Rate Abdomen: Soft, No Tenderness, Other (HYPERACTIVE) Extremities: No Cyanosis, No Edema Neuro: Cranial Nerves 3-12 NL Psych/Mental Status: Mental Status NL, Mood NL Results Lab Laboratory Tests 10/09/18 11:13: Glucometer 175H 10/09/18 15:30: Glucometer 185H 10/09/18 20:42: Glucometer 141H 10/10/18 05:18: Glucometer 152H 10/10/18 06:14: White Blood Count 5.8, Red Blood Count 2.98L, Hemoglobin 8.9L, Hematocrit 27L, Mean Corpuscular Volume 91, Mean Corpuscular Hemoglobin 30, Mean Corpuscular Hemoglobin Concent 33, Red Cell Distribution Width 15.6H, Platelet Count 99L, Mean Platelet Volume 10.1, Sodium Level 135, Potassium Level 3.2L, Chloride Level 104, Carbon Dioxide Level 21, Anion Gap 10, Blood Urea Nitrogen 15, Creatinine 1.30, Estimat Glomerular Filtration Rate 54, BUN/Creatinine Ratio 12, Glucose Level 135H, Calcium Level 8.3L, Corrected Calcium 9.6, Magnesium Level 1.7L, Total Bilirubin 0.7, Aspartate Amino Transf (AST/SGOT) 30, Alanine Aminotransferase (ALT/SGPT) 44, Alkaline Phosphatase 85, Total Protein 5.1L, Albumin 2.4L Microbiology 10/08/18 Catheter Tip Culture - Preliminary, Resulted No growth 10/07/18 Gram Stain - Final, Complete 10/07/18 Sputum Culture - Final, Complete Usual upper respiratory evette Klebsiella pneumoniae Assessment/Plan Assessment/Plan Assess & Plan/Chief Complaint PULMONARY HEMORRHAGE PNEUMONIA ATRIAL FIBRILLATION HYPERTENSION HYPERLIPIDEMIA ULCERATIVE COLITIS GENERALIZED WEAKNESS INSOMNIA CHRONIC ANTICOAGULATION USE BPH CRITICAL CARE MYOPATHY EMPHYSEMA HYPOMAGNESEMIA HYPOKALEMIA DIARRHEA PULMONARY HEMORRHAGE WITH PNEUMONIA - PULMONARY HEMORRHAGE HAS RESOLVED, BUT PT SPIKED A FEVER OVER THIS PAST WEEKEND AND HE WAS PLACED BACK ON ZOSYN AND VANCOMYCIN, THE CHEST XRAY HAS BEEN NEGATIVE, HIS WHITE COUNTS HAVE REMAINED NO RMAL, AND WE HAVE A SPUTUM WHICH IS SHOWING KLEBSIELLA - THE MIDLINE TIP IS BEING CULTURED, THUS FAR THE MIDLINE TIP IS NOT GROWING ANY BACTERIA - THE VANCOMYCIN HAS BEEN STOPPED. WE WILL CONTINUE WITH SERIAL XRAYS AND SERIAL LABS PREVIOUSLY ORDERED. ATRIAL FIBRILLATION - -ASPIRIN RESTARTED ON 10/02/18, ELIQUIS HAD TO BE STOPPED DUE TO RECURRENT PULMONARY HEMORRHAGES. - DEFER OTHER TREATMENT TO DR. 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 HYPERTENSION - CONTINUE WITH METOPROLOL ORALLY HYPERLIPIDEMIA - STABLE - CONTINUE TO HOLD STATIN DUE TO HIS CRITICAL ILLNESS MYOPATHY ULCERATIVE COLITIS - RESTARTED LIALDA GENERALIZED WEAKNESS -PT WAS ADMITTED TO INPT REHAB FOR THERAPY FOR STRENGTHENING. EMPHYSEMA - DX ON HIS CT SCAN - HE WILL NEED CONTINUED TREATMENT OF HIS ILLNESS WITH DR. HESS AN OUTPATIENT. INSOMNIA - RESTARTED HIS HOME MELATONIN DOSING. BPH - RESTARTED TAMSULOSIN. CONTINUE WITH INPT REHAB FOR TREATMENT OF CRITICAL CARE MYOPATHY - I HAVE ADVISED PT THAT SINCE HE IS FINALLY SHOWING IMPROVEMENT - DOWN FROM 2 PERSON ASSIST TO ONE PERSON ASSIST - THAT WE WILL TRY TO GET HIS INSURANCE COMPANY TO APPROVE THROUGH 10/17/18 FOR HIS STRENGTHENING AND REHABILITATION. UNFORTUNATELY, WITH THE FIRST ADMISSION AND REFUSAL FOR INPATIENT REHAB AND THE PT'S SUBSEQUENT RE-ADMISSION FOR RECURRENT PULMONARY HEMORRHAGE AND PNEUMONIA AND THIS MINOR SET-BACK - HE WILL NEED MORE TIME THAN THEY ORIGINALLY APPROVED WHICH WAS UNTIL 10/14/18. HYPOMAGNESEMIA - MAGNESIUM IV AGAIN TODAY, MONITOR LABS HYPOKALEMIA - RESTART THE POTASSIUM DAILY AND GIVE 30MEQ TODAY. CHECK LABS IN THE MORNING. DIARRHEA - PT HAS KNOWN ULCERATIVE COLITIS - WILL CHECK A CDIFF TO MAKE SURE THAT IS NOT CONTRIBUTING TO HIS ILLNESS AND FEVERS, START ON FLAGYL AND WILL STOP IF HIS CDIFF IS NEGATIVE. PERSISTENT FEVERS DESPITE TREATMENT OF THE KLEBSIELLA - WILL GIVE A FEW DAYS OF ANTIFUNGAL THERAPY - OF DIFLUCAN 100MG DAILY X 5 DAYS. Clinical Quality Measures DVT/VTE Risk/Contraindication: Risk Factor Score Per Nursin RFS Level Per Nursing on Admit: 4+=Very High CODEY BARILLAS MD Oct 10, 2018 08:44
[2018-10-10] MEDS ORDERED: KCL 20 MEQ TAB (K-DUR) PO NR (08:45)
--- NOTE | 2018-10-10 08:46 | PM&R Progress Note ---
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 Parsons who presents after a complex ICU stay which included intubation due to respiratory insufficiency due to recurrent pulmonary hemorrhage requiring airway protection and placed on treatment for hospital acquired pneumonia. Patient is not an anticoagulation candidate at this current time due to the recurrent hemorrhages. Patient is doing extremely well very weak and will require intensive rehabilitation in order to return home. Prior level of functioning was independent with ADLs and ambulation. He does have a history of inflammatory bowel disease of which he has a lot of diarrhea which is chronic. He denies any significant pain and he does have lower extremity edema we have initiated LUIS EDUARDO her for compression therapy. His daughter from [facility] is here visiting him. I checked meds and labs. Blood pressure has been mildly elevated at 160/77 but he is not having any more dysphagia as a complication from intubation and we will discontinue Head catheter and telemetry. Subjective/Events-last exam Temperature is 100. Up in a chair and was only a 1 person assist today. Spoke with PCP Dr. Parsons, she will work on getting approval from insurance for a few more days and discharge planned for Sunday. Talked to him about wheelchair possibility an he does not think he can work that out at home. Denies any pain. Overall positive attitude. Updated social work because there may come a time that he is just too weak to return home after inpatient rehab and may very well require skilled therapy for a certain time. Pt remains very fragile and fully dependent on aggressive medical care. Diarrhea noted so C-Diff Colitis will be checked for and initiate Flagyl empirically since he does have ulcerative colitis. Klebsiella sensitivity pending still on Zosyn broad spectrum. Conferred with RN Reviewed therapy notes Review of Systems General: Fatigue Pulmonary: Dyspnea, Cough Gastrointestinal: Diarrhea Objective Exam Vital Signs Vital Signs Date Time Temp Pulse Resp B/P (MAP) Pulse Ox O2 Delivery O2 Flow Rate FiO2 10/10/18 15:38 100.1 67 16 130/68 (88) 92 NIV CPAP 10/10/18 15:06 4.00 Capillary Refill : General Appearance: No Apparent Distress, WD/WN, Chronically ill HEENT: PERRL/EOMI, Normal ENT Inspection, Pharynx Normal, Moist Mucous Membran es Neck: Full Range of Motion, Normal Inspection, Non Tender, Supple Respiratory: Chest Non Tender, Lungs Clear, Normal Breath Sounds, No Accessory Muscle Use, No Respiratory Distress, Crackles (LLL subtle), Decreased Breath Sounds, Rales (L>R) Cardiovascular: No Edema, No Gallop, No JVD, No Murmur, Irregularly Irregular Gastrointestinal: Normal Bowel Sounds, No Organomegaly, No Pulsatile Mass, Non Tender, Soft Back: Normal Inspection, No CVA Tenderness, No Vertebral Tenderness Extremity: Normal Capillary Refill, Normal Inspection, Normal Range of Motion, Non Tender, No Calf Tenderness, No Pedal Edema Neurologic/Psychiatric: Alert, Oriented x3, No Motor/Sensory Deficits, Normal Mood/Affect, Motor Weakness (generalized all extremities 4/5) Skin: Normal Color, Warm/Dry Lymphatic: No Adenopathy Results/Procedures Lab Laboratory Tests 10/10/18 06:14 Patient resulted labs reviewed. FIM Transfers Therapy Code Descriptions/Definitions Functional [place] Measure: 0=Not Assessed/NA 4=Minimal Assistance 1=Total Assistance 5=Supervision or Setup 2=Maximal Assistance 6=Modified [place] 3=Moderate Assistance 7=Complete [place] Therapy Quality Codes: 6 Independent with activity with or without an assistive device 5 Patient requires set up or clean up by helper. Patient completes activity by themselves 4 Supervision or touching assist (CGA). [place] provide cues , steadying assist 3 The helper provides less than half the effort to complete the activity 2 The helper provides more than half the effort to complete the activity 1 Dependent. The helper does all the effort to complete an activity 7 Patient refused to complete or attempt activity 9 The patient did not perform the activity before the current illness or injury 88 Not attempted due to Medical conditions or safety concerns Transfers (B, C, W/C) (FIM): 1 Scootin Rollin Roll Left to Right (QC): 2 Supine to/from Sit: 4 Sit to/from Stand: 2 Sit to Lying (QC): 2 Sit to Stand (QC): 1 Chair/Qvs-dd-Tbrok Xfer(QC): 1 Bed to/from Chair: 2 Car Transfer (QC): 88 (Dependent on sit<->stand lift and poor trunk control currently) Gait Training Does the Patient Walk?: No and Walking Goal IS indicated Gait (FIM): 0 Distance (FIM): 0=does not occure Walk 10 feet (QC): 88 Walk 50 ft with 2 Turns(QC): 88 Walk 150 ft (QC): 88 Walking 10ft/uneven surface-QC: 88 Wheelchair Training Does the Pt Use a Wheelchair?: Yes Wheelchair (FIM): 5 Wheelchair Distance: 3=150 ft Distance: 150' x2 Wheelchair Level of Assist: 5 Wheel 50 ft with 2 turns (QC): 5 Wheel 150 ft (QC): 5 Type of Wheelchair: Manual Stair Training Stairs (FIM): 0 1 Step (curb) (QC): 88 4 Steps (QC): 88 12 Steps (QC): 88 Balance Picking up an Object (QC): 88 Mental Status/Objective Comprehension: 6 Expression: 5 Social Interaction: 6 Problem Solvin Memory: 3 ADL-Treatment Feedin Eating (QC): 5 Groomin Oral Hygiene (QC): 5 Bathin (SBA with LH in shower on rolling shower chair.) Bathing Location: L Arm, R Arm, L Upper Leg, R Upper Leg, Chest, Abdomen, Perineal Area Shower/Bathe Self (QC): 4 Upper Extremity Dressin Upper Body Dressing (QC): 4 Lower Extremity Dressin (Pt. practiced doffing/donning slipper socks with AE x 2. 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 Likely due to steroids, hopefully will completely resolve Hypokalemia Diarrhea Fever Plan: Monitor labs Monitor fever, empiric abx O2 Nebs BP management IRF therapy protocols Melatonin home supply Monitor crackles on bases Replace potassium NH discussion (1) Myopathy (2) BRIDGER treated with BiPAP (3) CAD S/P percutaneous coronary angioplasty Onset Date: 12/31/2013 (4) Pacemaker (5) Asthma (6) Hx of CABG (7) Leukocytosis (8) Weakness generalized (9) Anemia (10) COPD (chronic obstructive pulmonary disease) (11) Hypoxemia (12) Edema (13) Ulcerative colitis (14) Fecal incontinence (15) Contraindication to anticoagulation therapy (16) Pulmonary hemorrhage (17) Acute insomnia (18) Leukocytosis KOBI ESTEBAN DO Oct 10, 2018 08:46
--- NOTE | 2018-10-10 08:56 | Physical Therapy Daily Note ---
PT Daily Note-Current Subjective Patient in bed pre tx, agrees to PT, has no complaints of pain. Patient needs dressed upper and lowers, he says he had a BM not too long ago. Patient puts on his shirt without assist but shorts max assist. Appearance Patient in wheelchair at bedside post tx with nurse call, phone, tray, all needs met. Has OT right after PT. Mental Status Patient Orientation: Normal For Age Attachments: IV Transfers Therapy Code Descriptions/Definitions Functional [place] Measure: 0=Not Assessed/NA 4=Minimal Assistance 1=Total Assistance 5=Supervision or Setup 2=Maximal Assistance 6=Modified [place] 3=Moderate Assistance 7=Complete [place] Therapy Quality Codes: 6 Independent with activity with or without an assistive device 5 Patient requires set up or clean up by helper. Patient completes activity by themselves 4 Supervision or touching assist (CGA). [place] provide cues , steadying assist 3 The helper provides less than half the effort to complete the activity 2 The helper provides more than half the effort to complete the activity 1 Dependent. The helper does all the effort to complete an activity 7 Patient refused to complete or attempt activity 9 The patient did not perform the activity before the current illness or injury 88 Not attempted due to Medical conditions or safety concerns Transfers (B, C, W/C) (FIM): 2 Scootin Rollin Supine to/from Sit: 3 Sit to/from Stand: 2 Bed to/from Chair: 2 Patient seemed improved with transfers, still max assist but he seemed to be able to bear a little more weight on his legs. He had more difficulty with supine to sit and scooting. Weight Bearing Right Lower Extremity: Right Full Weight Bearing Left Lower Extremity: Left Full Weight Bearing Wheelchair Training Does the Pt Use a Wheelchair?: Yes Wheelchair (FIM): 5 Distance: 150'x2 Wheelchair Level of Assist: 5 Type of Wheelchair: Manual Occasional difficulty turning through doorways. Exercises Seated Therapy Exercises: Ankle pumps, Long arc quads, Hip flexion, Hip abd/add (with pillow and RTB) Seated Reps: 20 sit to spanish medical interpreter parallel bars x3 with max assist, twice for 30 seconds, once for 60 seconds. Treatments standing, transfers, dressing, bed mobility, LE exercise Assessment Current Status: Fair Progress some improvement with sit to stand but still max assist PT Short Term Goals Short Term Goals Time Frame: Oct 12, 2018 Transfers (B,C,W/C) (FIM): 4 Wheelchair Distance: 150' x2 PT [facility] Goals Information Systems Coordinator Goals PT [facility] Goals Time Frame: Oct 26, 2018 Transfers (B,C,W/C) (FIM): 6 Sit to Lying (QC): 6 Lying-Sitting on Side/Bed(QC): 6 Sit to Stand (QC): 6 Rollin Roll Left to Right (QC): 6 Chair/Qhl-ji-Cghuy Xfer(QC): 6 Car Transfer (QC): 6 Does the Patient Walk: No and Walking Goal IS indicated Gait (FIM): 6 Gait distance (FIM): 3=150 ft Distance: 150 Walk 10 feet (QC): 6 Walk 10ft-Uneven Surface(QC): 6 Walk 50ft with 2 Turns (QC): 6 Walk 150 ft (QC): 6 Gait Level of Assist: 6 Gait Assistive Device: FWW Stairs (FIM): 6 # of Steps: 12 1 Step (curb) (QC): 6 4 Steps (QC): 6 12 Steps (QC): 6 Stairs Level Of Assist: 6 Picking up an Object (QC): 5 PT Plan Problem List Problem List: Activity Tolerance, Functional Strength, Safety, Balance, Gait, Transfer, Bed Mobility, ROM Treatment/Plan Treatment Plan: Continue Plan of Care Treatment Plan: Bed Mobility, Concurrent Therapy, Education, Functional Activity [place], Functional Strength, Group Therapy, Gait, Safety, Therapeutic Exercise, Transfers Treatment Duration: Oct 26, 2018 Frequency: At least 5 of 7 days/Wk (IRF) Estimated Hrs Per Day: 1.5 hours per day Patient and/or Family Agrees t: Yes Safety Risks/Education Patient Education: Transfer Techniques, Correct Positioning, Safety Issues Teaching Recipient: Patient Teaching Methods: Demonstration, Discussion Response to Teaching: Reinforcement Needed Time/GCodes Time In: 0800 Time Out: 0900 Total Billed Treatment Time: 60 Total Billed Treatment 1 visit EX 30' FA 30' MARIA ELENA ESQUIVEL PT Oct 10, 2018 08:56
[2018-10-10] MEDS ORDERED: fluCOnazole (DIFLUCAN) 100 MG TAB PO SCH (09:00)
[2018-10-10] MEDS ORDERED: KCL 10 MEQ TAB (MICRO K) PO SCH (09:00)
[2018-10-10] MEDS: DULoxetine 20 MG (CYMBALTA) CAP PO SCH (09:05)
[2018-10-10] MEDS: LORATADINE (CLARITIN) 10 MG TAB PO SCH (09:05)
[2018-10-10] MEDS: ASPIRIN 81 MG CHEW (CHILDREN'S ASA) PO SCH (09:05)
[2018-10-10] MEDS: meTOprolol TARTRATE 25 MG (LOPRESSOR) TABLET PO SCH (09:05)
[2018-10-10] MEDS: DICLOFENAC 1% GEL 100 GM (VOLTAREN) TUBE TOP SCH ×2 (09:06→12:08)
[2018-10-10] MEDS: SENNA W/DOCUSATE (SENOKOT S) TABLET PO SCH (09:06)
[2018-10-10] MEDS: DILTIAZEM 120 MG (CARDIZEM CD) CAP PO SCH (09:06)
[2018-10-10] MEDS: MAGNESIUM 1 GM/100 ML IVPB 100 ML IV SCH ×2 (10:06→12:08)
--- NOTE | 2018-10-10 12:13 | NUR ---
CURING ROOM WORKER contacted patient's , Yoana to review Team Conference Summary. Although Team had recommended that patient proceed with SNF discharge next Sunday, Dr. Parsons believes patient will progress well enough to discharge home next . CURING ROOM WORKER spoke with Dr. Saravia regarding this change. CURING ROOM WORKER will send insurance updates on 10/15 to determine if they will approve the additional days. Patient is currently requiring the assistance of two people for standing and transfers, min to mod assist with OT skills and will need 24hour assistance at home. CURING ROOM WORKER spoke with patient's about her ability to provide necessary care at home and the need to obtain a ramp at the entrance of the home. We also discussed the option of private duty caregivers, as his current level of care will require more than one person can provide. Yoana will evaluate her ability to provide the necessary amount of care. Yoana does inquire about SNF placement, but would prefer to attempt a home plan, if all barriers are removed. CURING ROOM WORKER will follow up with Yoana regarding potential plans.
--- NOTE | 2018-10-10 12:47 | Diagnostic Imaging Report ---
INDICATION: Cough and fever. TIME OF EXAMINATION: 10:32 AM. COMPARISON: 10/09/2018. FINDINGS: Changes of median sternotomy and CABG are noted. The cardiac pacemaker remains in place. Bilateral pulmonary infiltrates and central congestive changes persist. No significant effusion or pneumothorax is seen. IMPRESSION: Stable chest since one day earlier. Dictated by: Dictated on workstation # [id number]
--- NOTE | 2018-10-10 12:56 | Physical Therapy Daily Note ---
PT Daily Note-Current Subjective Patient in bed pre tx, agrees to PT but states he feels ill. He agrees to exercises in bed. Appearance Patient in bed post tx with nurse call, phone, tray, all needs met. Mental Status Patient Orientation: Normal For Age Attachments: IV Transfers Therapy Code Descriptions/Definitions Functional [place] Measure: 0=Not Assessed/NA 4=Minimal Assistance 1=Total Assistance 5=Supervision or Setup 2=Maximal Assistance 6=Modified [place] 3=Moderate Assistance 7=Complete [place] Therapy Quality Codes: 6 Independent with activity with or without an assistive device 5 Patient requires set up or clean up by helper. Patient completes activity by themselves 4 Supervision or touching assist (CGA). [place] provide cues , steadying assist 3 The helper provides less than half the effort to complete the activity 2 The helper provides more than half the effort to complete the activity 1 Dependent. The helper does all the effort to complete an activity 7 Patient refused to complete or attempt activity 9 The patient did not perform the activity before the current illness or injury 88 Not attempted due to Medical conditions or safety concerns Weight Bearing Right Lower Extremity: Right Full Weight Bearing Left Lower Extremity: Left Full Weight Bearing Exercises Supine Ex: Ankle pumps, Quad Set, Glut sets, Heel Slides, Short Arc Quads, Straight leg raise, Hip abd/add Supine Reps: 20 (most of them AAROM) Treatments LE exercises Assessment Current Status: Poor Progress patient ill today PT Short Term Goals Short Term Goals Time Frame: Oct 12, 2018 Transfers (B,C,W/C) (FIM): 4 Wheelchair Distance: 150'x2 PT Log Snaker Goals Log Snaker Goals PT [facility] Goals Time Frame: Oct 26, 2018 Transfers (B,C,W/C) (FIM): 6 Sit to Lying (QC): 6 Lying-Sitting on Side/Bed(QC): 6 Sit to Stand (QC): 6 Rollin Roll Left to Right (QC): 6 Chair/Qak-jv-Pitem Xfer(QC): 6 Car Transfer (QC): 6 Does the Patient Walk: No and Walking Goal IS indicated Gait (FIM): 6 Gait distance (FIM): 3=150 ft Distance: 150 Walk 10 feet (QC): 6 Walk 10ft-Uneven Surface(QC): 6 Walk 50ft with 2 Turns (QC): 6 Walk 150 ft (QC): 6 Gait Level of Assist: 6 Gait Assistive Device: FWW Stairs (FIM): 6 # of Steps: 12 1 Step (curb) (QC): 6 4 Steps (QC): 6 12 Steps (QC): 6 Stairs Level Of Assist: 6 Picking up an Object (QC): 5 PT Plan Problem List Problem List: Activity Tolerance, Functional Strength, Safety, Balance, Gait, Transfer, Bed Mobility, ROM Treatment/Plan Treatment Plan: Continue Plan of Care Treatment Plan: Bed Mobility, Concurrent Therapy, Education, Functional Activity [place], Functional Strength, Group Therapy, Gait, Safety, Therapeutic Exercise, Transfers Treatment Duration: Oct 26, 2018 Frequency: At least 5 of 7 days/Wk (IRF) Estimated Hrs Per Day: 1.5 hours per day Patient and/or Family Agrees t: Yes Safety Risks/Education Patient Education: Correct Positioning, Safety Issues Teaching Recipient: Patient Teaching Methods: Demonstration, Discussion Response to Teaching: Reinforcement Needed Time/GCodes Time In: 1230 Time Out: 1245 Total Billed Treatment Time: 15 Total Billed Treatment 1 visit EX 15' MARIA ELENA ESQUIVEL PT Oct 10, 2018 12:56
[2018-10-10] MEDS: metroNIDAZOLE 500MG/100ML IVPB 100 ML IV SCH ×2 (14:02→14:03)
--- NOTE | 2018-10-10 14:49 | NUR ---
Dr Mijares notified pt with increased shortness of breath, temp of 101. O2 increased from 3.5L to 6L. RT notified and to come assess and give breathing treatment. Dr Mijares stated he would come down and see pt at this time. HOB elevated 45% Encouraged to take deep breaths
[2018-10-10 15:06] VITALS: BP 135/72
--- NOTE | 2018-10-10 15:08 | Pulmonary Progress Note ---
Subjective Time Seen by a Provider: 15:06 Subjective/Events-last exam PT denies SOB. Sepsis Event Evaluation Height, Weight, BMI Height: 5'6.00" Weight: 182lbs. 3.2oz. [id number]; 33.1 BMI Method:Stated Exam Exam Vital Signs Date Time Temp Pulse Resp B/P (MAP) Pulse Ox O2 Delivery O2 Flow Rate FiO2 10/10/18 14:54 94 Nasal Cannula 6.00 10/10/18 14:52 101.0 10/10/18 09:00 Room Air 10/10/18 07:59 90 Nasal Cannula 3.00 10/10/18 05:34 97.7 65 20 117/70 (86) 95 NIV CPAP 3.50 10/09/18 23:30 100.0 72 93 NIV CPAP 3.50 10/09/18 21:55 67 97 NIV CPAP 3.50 10/09/18 21:14 96 Nasal Cannula 5.00 10/09/18 20:35 Room Air 10/09/18 20:29 99.5 71 20 124/70 (88) 92 Nasal Cannula 6.00 10/09/18 20:11 87 Nasal Cannula 3.50 10/09/18 18:16 98.6 10/09/18 17:16 92 Nasal Cannula 3.50 10/09/18 17:01 102.2 70 26 125/71 (89) 79 Room Air 10/09/18 16:12 101.0 10/09/18 16:12 101.0 I & O 10/10/18 06:59 Intake Total 2120 ml Output Total 1125 ml Balance 995 ml Height & Weight Height: 5'6.00" Weight: 182lbs. 3.2oz. [id number]; 33.1 BMI Method:Stated General Appearance: No Apparent Distress, WD/WN, Chronically ill HEENT: PERRL/EOMI, Normal ENT Inspection, Pharynx Normal, Moist Mucous Membranes Neck: Full Range of Motion, Normal Inspection, Non Tender, Supple Respiratory: Chest Non Tender, Lungs Clear, Normal Breath Sounds, No Accessory Muscle Use, No Respiratory Distress, Crackles (LLL subtle), Decreased Breath Sounds, Rales (L>R) Cardiovascular: No Edema, No Gallop, No JVD, No Murmur, Irregularly Irregular Gastrointestinal: normal bowel sounds, non tender, soft, no organomegaly, no pulsatile mass Extremity: Normal Capillary Refill, Normal Inspection, Normal Range of Motion, Non Tender, No Calf Tenderness, No Pedal Edema Neurologic/Psychiatric: Alert, Oriented x3, No Motor/Sensory Deficits, Normal Mood/Affect, Motor Weakness (generalized all extremities 4/5) Skin: Normal Color, Warm/Dry Lymphatic: No Adenopathy Results Lab Laboratory Tests 10/09/18 06:00 10/10/18 06:14 Assessment/Plan Assessment/Plan Pulmonary hemorrhage -resolved Klebiella PNA -Sensative to Zosyn -Monitor -Zosyn -Lamas cultures including mid line tip culture Diarrhea - Cdiff toxin pending -Flagyl DM -SSI may need to start Levemir BRIDGER -Out pt JUAN Don DO Oct 10, 2018 15:08
[2018-10-10] MEDS ORDERED: NS IV 1000 ML 1,000 ML IV SCH (15:15)
--- NOTE | 2018-10-10 15:17 | Occupational Ther Daily Note ---
OT Current Status-Daily Note Subjective Pt. reports that he is tired but does not report pain. Appearance Pt. up in his chair. Agrees to shower. Mental Status/Objective Patient Orientation: Person, Place Therapy Code Descriptions/Definitions Functional Giles Measure: 0=Not Assessed/NA 4=Minimal Assistance 1=Total Assistance 5=Supervision or Setup 2=Maximal Assistance 6=Modified Giles 3=Moderate Assistance 7=Complete Giles Attachments: IV ADL-Treatment Therapy Code Descriptions/Definitions Functional Giles Measure: 0=Not Assessed/NA 4=Minimal Assistance 1=Total Assistance 5=Supervision or Setup 2=Maximal Assistance 6=Modified Giles 3=Moderate Assistance 7=Complete Giles Therapy Quality Codes: 6 Independent with activity with or without an assistive device 5 Patient requires set up or clean up by helper. Patient completes activity by themselves 4 Supervision or touching assist (CGA). Griffin provide cues , steadying assist 3 The helper provides less than half the effort to complete the activity 2 The helper provides more than half the effort to complete the activity 1 Dependent. The helper does all the effort to complete an activity 7 Patient refused to complete or attempt activity 9 The patient did not perform the activity before the current illness or injury 88 Not attempted due to Medical conditions or safety concerns Grooming (FIM): 5 (Set up at sink at wheelchair level.) Oral Hygiene (QC): 5 Bathing (FIM): 4 (Pt. required assistance in shower to cleanse rear luis area thoroughly.) Shower/Bathe Self (QC): 4 Upper Body (FIM): 4 (Min assist due to IV.) Upper Body Dressing (QC): 4 Lower Body Dressing (FIM): 2 (Max assist needed to don LE clothing due to shower chair and sit-stand lift positioning.) Lower Body Dressing (QC): 2 On/Off Footwear (QC): 2 Toileting (FIM): 1 (Pt. incontinent of BM in shorts previous to shower.) Toileting Hygiene (QC): 4 Transfers (B, C, W/C) (FIM): 1 (Dependent assist with sit-stand lift.) Shower Transfer(FIM): 1 (Dependent via shower chair.) Other Treatment Pt. up in chair. Agrees to work with OT. After shower, pt. self propels to therapy gym. Tolerated 12 minutes on arm bike at mod resistance to increase overall strength. Worked on memory with historical trivia. Pt. tolerated this well and seemed to enjoy it. Pt. taken at this time to x-ray. All needs were met previously. Education OT Patient Education: Correct positioning, Exercise program, Modified ADL techniques, Progress toward Goal/Update tx plan, Purpose of tx/functional activities, Reviewed precautions, Rehab process, Transfer techniques Teaching Recipient: Patient Teaching Methods: Demonstration, Discussion Response to Teaching: Verbalize Understanding, Return Demonstration OT Short Term Goals Short Term Goals Time Frame: Oct 04, 2018 Grooming(FIM): 4 Bathing(FIM): 3 Upper Body Dressing(FIM): 4 Lower Body Dressing(FIM): 3 Toileting(FIM): 3 Transfers (B,C,W/C) (FIM): 4 Toilet/Commode Transfer(FIM): 3 Additional Short Term Goals: 1-Demonstrate ADL Tasks, 2-Verbalize Understanding, 3-ImproveStrength/Gilbert 1=Demonstrate adherence to instructed precautions during ADL tasks. 2=Patient will verbalize/demonstrate understanding of assistive devices/modifications for ADL. 3=Patient will improve strength/tolerance for activity to enable patient to perform ADL's. OT Half-Way Goals Half-Way Goals Time Frame: Oct 25, 2018 Eating (FIM): 6 Eating (QC): 6 Groomin Oral Hygiene (QC): 6 Bathing(FIM): 5 Shower/Bathe Self (QC): 5 Upper Body Dressing(FIM): 5 Upper Body Dressing (QC): 5 Lower Body Dressing(FIM): 5 Lower Body Dressing (QC): 5 On/Off Footwear (QC): 5 Toileting(FIM): 5 Toileting Hygiene (QC): 5 Toilet/Commode Transfer(FIM): 5 Toilet/Commode Transfer (QC): 5 Shower Transfer(FIM): 5 Additional Goals: 1-Demonstrate ADL Tasks, 2-Verbalize Understanding, 3- ImproveStrength/Gilbert 1=Demonstrate adherence to instructed precautions during ADL tasks. 2=Patient will verbalize/demonstrate understanding of assistive devices/modifications for ADL. 3=Patient will improve strength/tolerance for activity to enable patient to perform ADL's. OT Education/Plan Problem List/Assessment Assessment: Decreased Activ Tolerance, Decreased UE Strength, Dependent Transfers, Impaired Bed Mobility, Impaired I ADL's, Impaired Self-Care Skills Pt demonstrates decreased mobility, strength, activity tolerance, and ADL functioning. Pt to benefit from skilled OT intervention for ADL training, transfers, strengthening, and home safety education to increase level of independence and allow safe discharge home. Discharge Recommendations Plan/Recommendations: Continue POC Therapy D/C Recommendations: Home w/ Family Support Treatment Plan/Plan of Care Treatment,Training & Education: Yes Patient would benefit from OT for education, treatment and training to promote independence in ADL's, mobility, safety and/or upper extremity function for ADL's. Plan of Care: ADL Retraining, Functional Mobility, Group Exercise/Act as Ind, UE Funct Exercise/Act Treatment Duration: Oct 25, 2018 Frequency: At least 5 of 7 days/Wk (IRF) Estimated Hrs Per Day: 1.5 hours per day Agreement: Yes Rehab Potential: Fair Time/GCodes Start Time: 09:15 Stop Time: 10:30 Total Time Billed (hr/min): 75 Billed Treatment Time 1, ADL x 45minutes, Ex x 30minutes ANURAG HENRIQUEZ OT Oct 10, 2018 15:17
[2018-10-10 15:38] VITALS: BP 130/68
--- NOTE | 2018-10-10 16:07 | Pulmonary Progress Note ---
Subjective Time Seen by a Provider: 16:06 Subjective/Events-last exam Pt is having persistent fevers. Sepsis Event Evaluation Height, Weight, BMI Height: 5'6.00" Weight: 182lbs. 3.2oz. [id number]; 33.1 BMI Method:Stated Exam Exam Vital Signs Date Time Temp Pulse Resp B/P (MAP) Pulse Ox O2 Delivery O2 Flow Rate FiO2 10/10/18 15:38 100.1 67 16 130/68 (88) 92 NIV CPAP 10/10/18 15:06 101.0 74 29 135/72 (93) 90 Nasal Cannula 4.00 10/10/18 14:54 94 Nasal Cannula 6.00 10/10/18 14:52 101.0 10/10/18 09:00 Room Air 10/10/18 07:59 90 Nasal Cannula 3.00 10/10/18 05:34 97.7 65 20 117/70 (86) 95 NIV CPAP 3.50 10/09/18 23:30 100.0 72 93 NIV CPAP 3.50 10/09/18 21:55 67 97 NIV CPAP 3.50 10/09/18 21:14 96 Nasal Cannula 5.00 10/09/18 20:35 Room Air 10/09/18 20:29 99.5 71 20 124/70 (88) 92 Nasal Cannula 6.00 10/09/18 20:11 87 Nasal Cannula 3.50 10/09/18 18:16 98.6 10/09/18 17:16 92 Nasal Cannula 3.50 10/09/18 17:01 102.2 70 26 125/71 (89) 79 Room Air 10/09/18 16:12 101.0 10/09/18 16:12 101.0 I & O 10/10/18 07:00 Intake Total 2120 ml Output Total 1125 ml Balance 995 ml Height & Weight Height: 5'6.00" Weight: 182lbs. 3.2oz. 82.332711iw; 33.1 BMI Method:Stated General Appearance: WD/WN, Chronically ill, Mild Distress HEENT: PERRL/EOMI, Normal ENT Inspection, Pharynx Normal, Moist Mucous Membranes Neck: Full Range of Motion, Normal Inspection, Non Tender, Supple Respiratory: Chest Non Tender, Lungs Clear, Normal Breath Sounds, No Accessory Muscle Use, No Respiratory Distress, Crackles (LLL subtle), Decreased Breath Sounds, Rales (L>R) Cardiovascular: No Edema, No Gallop, No JVD, No Murmur, Irregularly Irregular Gastrointestinal: normal bowel sounds, non tender, soft, no organomegaly, no pulsatile mass Extremity: Normal Capillary Refill, Normal Inspection, Normal Range of Motion, Non Tender, No Calf Tenderness, No Pedal Edema Neurologic/Psychiatric: Alert, Oriented x3, No Motor/Sensory Deficits, Normal Mood/Affect, Motor Weakness (generalized all extremities 4/5) Skin: Normal Color, Warm/Dry Lymphatic: No Adenopathy Results Lab Laboratory Tests 10/09/18 06:00 10/10/18 06:14 Assessment/Plan Assessment/Plan Pulmonary hemorrhage -resolved Worsening hypoxia and persistent fever -D/c with Dr. Saravia, Dr. Parsons and medical staff. Will admit to ICU to ensure he is stable. -Continue all current meds. Klebiella PNA -Sensative to Zosyn -Monitor -Zosyn -Lamas cultures including mid line tip culture Diarrhea - Cdiff toxin pending -Flagyl DM -SSI may need to start Levemir BRIDGER -Out pt f.u Critical Care: Critically Ill Patient Time spent with patient (mins): 60 JUAN HESS DO Oct 10, 2018 16:07
--- NOTE | 2018-10-10 16:31 | NUR ---
New order received to transfer pt on leave of absence to icu. Report given to Selin
--- NOTE | 2018-10-10 17:00 | NUR ---
Transferred in the bed to the unit at this time to ICU 9 with /. Pts notified and at bedside.
--- NOTE | 2018-10-10 21:21 | Discharge Summary ---
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 Likely due to steroids, hopefully will completely resolve Hypokalemia Diarrhea Fever Plan: Monitor labs Monitor fever, empiric abx O2 Nebs BP management IRF therapy protocols Melatonin home supply Monitor crackles on bases Replace potassium NH discussion (1) Myopathy (2) BRIDGER treated with BiPAP (3) CAD S/P percutaneous coronary angioplasty Onset Date: 12/31/2013 (4) Pacemaker (5) Asthma (6) Hx of CABG (7) Leukocytosis (8) Weakness generalized (9) Anemia (10) COPD (chronic obstructive pulmonary disease) (11) Hypoxemia (12) Edema (13) Ulcerative colitis (14) Fecal incontinence (15) Contraindication to anticoagulation therapy (16) Pulmonary hemorrhage (17) Acute insomnia (18) Leukocytosis Discharge Summary Discharge Physical Examination Allergies: Coded Allergies: Sulfa (Sulfonamide Antibiotics) (Verified Allergy, Unknown, 08/31/18) montelukast (Unverified Adverse Reaction, Unknown, 06/08/16) Hallucinations per pt Vitals & I&Os Vital Signs Date Time Temp Pulse Resp B/P (MAP) Pulse Ox O2 Delivery O2 Flow Rate FiO2 10/10/18 20:45 94 3 10/10/18 15:38 100.1 67 16 130/68 (88) NIV CPAP 10/10/18 15:06 4.00 General Appearance: Alert, Oriented X3, Cooperative, No Acute Distress, Other (severely debilitated, feverish) Respiratory: Other (crackles base) Neuro: Normal Speech, Strength at 5/5 X4 Ext Psych/Mental Status: Mental Status NL, Mood NL Hospital Course Was the Problem List Reviewed?: Yes Hospital course: Patient had a fairly standard hospital course in inpatient rehabilitation but didn't require intensive medical management from cardiology, pulmonology, primary care provider management due to severe acute on chronic conditions which included new onset fever with hypoxia requiring empiric antibiotics after panculture and pulmonology management along with cardiology for hypotension and then confirming Klebsiella in the sputum which ultimately required transfer to the ICU due to increasing complexity of his medical problems and could not tolerate the intensive therapy at this time with impending sepsis. While he was in inpatient rehabilitation he did benefit and improve and did participate in all therapies as required and overall had a great attitude along with family support. Labs were monitored closely as well as renal function and use of incentive spirometer. Steroids were weaned which helped emotional well-being in addition to helping decrease steroid myopathy that was causing a great deal of weakness and inability for lower extremities to function properly. He remained stable during the hospital stay but he became quite complex requiring transfer to ICU for higher level of care but will be willing to look at him again in the future once he stabilizes to readmit to the inpatient rehabilitation unit. Labs (last 24 hrs) Laboratory Tests 09/27/18 18:20: Glucometer 131H 09/27/18 20:33: Glucometer 157H 09/28/18 00:52: Glucometer 212H 09/28/18 05:20: Glucometer 135H 09/28/18 05:51: White Blood Count 12.6H, Red Blood Count 3.96L, Hemoglobin 12.1L, Hematocrit 36L , Mean Corpuscular Volume 91, Mean Corpuscular Hemoglobin 31, Mean Corpuscular Hemoglobin Concent 34, Red Cell Distribution Width 14.5, Platelet Count 216, Mean Platelet Volume 9.4, Neutrophils (%) (Auto) 80H, Lymphocytes (%) (Auto) 8L, Monocytes (%) (Auto) 11, Eosinophils (%) (Auto) 0, Basophils (%) (Auto) 1, Neutrophils # (Auto) 10.1H, Lymphocytes # (Auto) 1.1, Monocytes # (Auto) 1.3H, Eosinophils # (Auto) 0.0, Basophils # (Auto) 0.1, Sodium Level 138, Potassium Level 4.2, Chloride Level 102, Carbon Dioxide Level 27, Anion Gap 9, Blood Urea Nitrogen 33H, Creatinine 0.77, Estimat Glomerular Filtration Rate > 60, BUN/Creatinine Ratio 43, Glucose Level 132H, Calcium Level 8.2L, Corrected Calcium 9.0, Total Bilirubin 0.7, Aspartate Amino Transf (AST/SGOT) 33, Alanine Aminotransferase (ALT/SGPT) 51, Alkaline Phosphatase 66, Total Protein 5.3L, Albumin 3.0L 09/28/18 12:10: Glucometer 190H 09/28/18 17:38: Glucometer 201H 09/29/18 00:05: Glucometer 189H 09/29/18 05:20: Glucometer 171H 09/29/18 11:32: Glucometer 275H 09/29/18 17:47: Glucometer 203H 09/30/18 00:03: Glucometer 166H 09/30/18 05:11: Glucometer 135H 09/30/18 06:22: White Blood Count 18.8H, Red Blood Count 3.92L, Hemoglobin 12.1L, Hematocrit 36L , Mean Corpuscular Volume 91, Mean Corpuscular Hemoglobin 31, Mean Corpuscular Hemoglobin Concent 34, Red Cell Distribution Width 14.9H, Platelet Count 212, Mean Platelet Volume 10.2, Neutrophils (%) (Auto) 86H, Lymphocytes (%) (Auto) 7L , Monocytes (%) (Auto) 7, Eosinophils (%) (Auto) 0, Basophils (%) (Auto) 1, Neutrophils # (Auto) 16.1H, Lymphocytes # (Auto) 1.3, Monocytes # (Auto) 1.3H, Eosinophils # (Auto) 0.0, Basophils # (Auto) 0.1, Neutrophils % (Manual) 70, Lymphocytes % (Manual) 10, Monocytes % (Manual) 3, Metamyelocytes % 8, Band Neutrophils 9, Polychromasia SLIGHT, Spherocytes SLIGHT, Sodium Level 139, Potassium Level 4.2, Chloride Level 103, Carbon Dioxide Level 26, Anion Gap 10, Blood Urea Nitrogen 22H, Creatinine 0.74, Estimat Glomerular Filtration Rate > 60, BUN/Creatinine Ratio 30, Glucose Level 159H, Calcium Level 8.7, Corrected Calcium 9.3, Total Bilirubin 0.9, Aspartate Amino Transf (AST/SGOT) 30, Alanine Aminotransferase (ALT/SGPT) 57H, Alkaline Phosphatase 74, Total Protein 5.6L, Albumin 3.3 09/30/18 11:39: Glucometer 121H 09/30/18 18:37: Glucometer 241H 10/01/18 00:05: Glucometer 205H 10/01/18 06:00: Glucometer 109, White Blood Count 17.8H, Red Blood Count 4.08L, Hemoglobin 12.6L , Hematocrit 37L, Mean Corpuscular Volume 90, Mean Corpuscular Hemoglobin 31, Mean Corpuscular Hemoglobin Concent 34, Red Cell Distribution Width 15.2H, Platelet Count 234, Mean Platelet Volume 9.8, Neutrophils (%) (Auto) 80H, Lymphocytes (%) (Auto) 8L, Monocytes (%) (Auto) 11, Eosinophils (%) (Auto) 0, Basophils (%) (Auto) 0, Neutrophils # (Auto) 14.3H, Lymphocytes # (Auto) 1.5, Monocytes # (Auto) 1.9H, Eosinophils # (Auto) 0.0, Basophils # (Auto) 0.1, Sodium Level 138, Potassium Level 4.0, Chloride Level 104, Carbon Dioxide Level 26, Anion Gap 8, Blood Urea Nitrogen 21H, Creatinine 0.76, Estimat Glomerular Filtration Rate > 60, BUN/Creatinine Ratio 28, Glucose Level 110H, Calcium Level 8.6, Corrected Calcium 9.2, Total Bilirubin 0.7, Aspartate Amino Transf (AST/SGOT) 34, Alanine Aminotransferase (ALT/SGPT) 62H, Alkaline Phosphatase 76, Total Protein 5.7L, Albumin 3.3 10/01/18 11:58: Glucometer 151H 10/01/18 18:18: Glucometer 263H 10/02/18 00:05: Glucometer 166H 10/02/18 05:25: Glucometer 107 10/02/18 11:27: Glucometer 192H 10/02/18 17:29: Glucometer 198H 10/02/18 23:30: Glucometer 161H 10/03/18 04:50: White Blood Count 13.0H, Red Blood Count 3.85L, Hemoglobin 11.8L, Hematocrit 35L , Mean Corpuscular Volume 92, Mean Corpuscular Hemoglobin 31, Mean Corpuscular Hemoglobin Concent 33, Red Cell Distribution Width 15.4H, Platelet Count 165, Mean Platelet Volume 9.6, Neutrophils (%) (Auto) 79H, Lymphocytes (%) (Auto) 11L , Monocytes (%) (Auto) 10, Eosinophils (%) (Auto) 0, Basophils (%) (Auto) 0, Neutrophils # (Auto) 10.3H, Lymphocytes # (Auto) 1.4, Monocytes # (Auto) 1.2H, Eosinophils # (Auto) 0.0, Basophils # (Auto) 0.0, Sodium Level 138, Potassium Level 3.6, Chloride Level 103, Carbon Dioxide Level 28, Anion Gap 7, Blood Urea Nitrogen 19H, Creatinine 0.74, Estimat Glomerular Filtration Rate > 60, BUN/Creatinine Ratio 26, Glucose Level 117H, Calcium Level 8.3L, Corrected Calcium 9.2, Total Bilirubin 0.6, Aspartate Amino Transf (AST/SGOT) 27, Alanine Aminotransferase (ALT/SGPT) 54, Alkaline Phosphatase 80, Total Protein 4.8L, Albumin 2.9L 10/03/18 04:51: Glucometer 115H 10/03/18 11:59: Glucometer 150H 10/03/18 18:01: Glucometer 172H 10/04/18 00:00: Glucometer 193H 10/04/18 05:51: Glucometer 165H 10/04/18 11:57: Glucometer 187H 10/04/18 18:41: Glucometer 249H 10/04/18 23:51: Glucometer 136H 10/05/18 05:40: White Blood Count 12.9H, Red Blood Count 3.55L, Hemoglobin 10.9L, Hematocrit 33L , Mean Corpuscular Volume 92, Mean Corpuscular Hemoglobin 31, Mean Corpuscular Hemoglobin Concent 33, Red Cell Distribution Width 15.8H, Platelet Count 129L, Mean Platelet Volume 9.8, Neutrophils (%) (Auto) 81H, Lymphocytes (%) (Auto) 12, Monocytes (%) (Auto) 7, Eosinophils (%) (Auto) 0, Basophils (%) (Auto) 0, Neutrophils # (Auto) 10.5H, Lymphocytes # (Auto) 1.5, Monocytes # (Auto) 0.9, Eosinophils # (Auto) 0.1, Basophils # (Auto) 0.0, Sodium Level 135, Potassium Level 3.7, Chloride Level 102, Carbon Dioxide Level 25, Anion Gap 8, Blood Urea Nitrogen 14, Creatinine 0.64, Estimat Glomerular Filtration Rate > 60, BUN/Creatinine Ratio 22, Glucose Level 143H, Calcium Level 8.1L, Corrected Calcium 9.2, Total Bilirubin 0.8, Aspartate Amino Transf (AST/SGOT) 19, Alanine Aminotransferase (ALT/SGPT) 42, Alkaline Phosphatase 74, Total Protein 4.7L, Albumin 2.6L 10/05/18 11:36: Glucometer 196H 10/05/18 16:02: Glucometer 201H 10/05/18 20:14: Glucometer 240H 10/06/18 05:21: Glucometer 134H 10/06/18 11:05: Glucometer 148H 10/06/18 15:22: Glucometer 181H 10/06/18 17:42: White Blood Count 11.7H, Red Blood Count 3.99L, Hemoglobin 12.3L, Hematocrit 36L , Mean Corpuscular Volume 91, Mean Corpuscular Hemoglobin 31, Mean Corpuscular Hemoglobin Concent 34, Red Cell Distribution Width 15.9H, Platelet Count 118L, Mean Platelet Volume 9.9, Neutrophils (%) (Auto) 81H, Lymphocytes (%) (Auto) 11L , Monocytes (%) (Auto) 7, Eosinophils (%) (Auto) 1, Basophils (%) (Auto) 0, Neutrophils # (Auto) 9.5H, Lymphocytes # (Auto) 1.3, Monocytes # (Auto) 0.9, Eosinophils # (Auto) 0.1, Basophils # (Auto) 0.0, Sodium Level 135, Potassium Level 3.6, Chloride Level 99, Carbon Dioxide Level 25, Anion Gap 11, Blood Urea Nitrogen 10, Creatinine 0.72, Estimat Glomerular Filtration Rate > 60, BUN/Creatinine Ratio 14, Glucose Level 143H, Lactic Acid Level 1.44, Calcium Level 8.7, Corrected Calcium 9.3, Total Bilirubin 0.9, Aspartate Amino Transf (AST/SGOT) 28, Alanine Aminotransferase (ALT/SGPT) 51, Alkaline Phosphatase 92, B-Type Natriuretic Peptide 342.8H, Total Protein 6.0L, Albumin 3.2 10/06/18 20:25: Urine Color YELLOW, Urine Clarity CLEAR, Urine pH 7, Urine Specific Cooks 1.010L, Urine Protein 2+H, Urine Glucose (UA) 1+H, Urine Ketones NEGATIVE, Urine Nitrite NEGATIVE, Urine Bilirubin NEGATIVE, Urine Urobilinogen 1, Urine Leukocyte Esterase 1+H, Urine RBC (Auto) 2+H, Urine RBC 2-5H, Urine WBC NONE, Urine Squamous Epithelial Cells RARE, Urine Crystals NONE, Urine Bacteria NE GATIVE, Urine Casts NONE, Urine Mucus NEGATIVE, Urine Culture Indicated NO 10/06/18 20:42: Glucometer 228H 10/07/18 04:04: Glucometer 138H 10/07/18 05:50: White Blood Count 9.3, Red Blood Count 3.49L, Hemoglobin 10.6L, Hematocrit 32L, Mean Corpuscular Volume 91, Mean Corpuscular Hemoglobin 30, Mean Corpuscular Hemoglobin Concent 33, Red Cell Distribution Width 15.8H, Platelet Count 113L, Mean Platelet Volume 9.8, Neutrophils (%) (Auto) 78H, Lymphocytes (%) (Auto) 14, Monocytes (%) (Auto) 7, Eosinophils (%) (Auto) 1, Basophils (%) (Auto) 0, Neutrophils # (Auto) 7.3, Lymphocytes # (Auto) 1.3, Monocytes # (Auto) 0.7, Eosi nophils # (Auto) 0.1, Basophils # (Auto) 0.0, Sodium Level 133L, Potassium Level 3.4L, Chloride Level 99, Carbon Dioxide Level 26, Anion Gap 8, Blood Urea Nitrogen 12, Creatinine 0.70, Estimat Glomerular Filtration Rate > 60, BUN/Creatinine Ratio 17, Glucose Level 146H, Calcium Level 8.2L, Corrected Calcium 9.2, Phosphorus Level 2.4, Magnesium Level 1.3L, Total Bilirubin 0.9, Aspartate Amino Transf (AST/SGOT) 20, Alanine Aminotransferase (ALT/SGPT) 41, Alkaline Phosphatase 80, Total Protein 5.3L, Albumin 2.7L 10/07/18 11:45: Glucometer 160H 10/07/18 15:29: Glucometer 174H 10/07/18 17:05: Urine Color YELLOW, Urine Clarity CLEAR, Urine pH 6, Urine Specific Cooks 1.020, Urine Protein 2+H, Urine Glucose (UA) 1+H, Urine Ketones NEGATIVE, Urine Nitrite NEGATIVE, Urine Bilirubin NEGATIVE, Urine Urobilinogen 4H, Urine Leukocyte Esterase NEGATIVE, Urine RBC (Auto) 1+H, Urine RBC NONE, Urine WBC RARE, Urine Squamous Epithelial Cells NONE, Urine Crystals NONE, Urine Bacteria NEGATIVE, Urine Casts NONE, Urine Mucus NEGATIVE, Urine Culture Indicated NO 10/07/18 21:01: Glucometer 256H 10/08/18 00:01: Glucometer 245H 10/08/18 05:43: Glucometer 183H 10/08/18 06:20: White Blood Count 6.9, Red Blood Count 3.32L, Hemoglobin 10.0L, Hematocrit 30L, Mean Corpuscular Volume 91, Mean Corpuscular Hemoglobin 30, Mean Corpuscular Hemoglobin Concent 33, Red Cell Distribution Width 15.6H, Platelet Count 96L, Mean Platelet Volume 9.6, Neutrophils (%) (Auto) 81H, Lymphocytes (%) (Auto) 11L , Monocytes (%) (Auto) 8, Eosinophils (%) (Auto) 1, Basophils (%) (Auto) 0, Neutrophils # (Auto) 5.6, Lymphocytes # (Auto) 0.7L, Monocytes # (Auto) 0.5, Eo sinophils # (Auto) 0.1, Basophils # (Auto) 0.0, Sodium Level 136, Potassium Level 3.7, Chloride Level 105, Carbon Dioxide Level 21, Anion Gap 10, Blood Urea Nitrogen 9, Creatinine 0.68, Estimat Glomerular Filtration Rate > 60, BUN/Creatinine Ratio 13, Glucose Level 170H, Calcium Level 7.8L, Corrected Calcium 8.9, Phosphorus Level 2.6, Magnesium Level 1.6L, Total Bilirubin 0.8, Aspartate Amino Transf (AST/SGOT) 21, Alanine Aminotransferase (ALT/SGPT) 44, Alkaline Phosphatase 87, Total Protein 5.1L, Albumin 2.6L, Vancomycin Level T rough 10.1 10/08/18 12:09: Glucometer 123H 10/08/18 15:34: Glucometer 150H 10/08/18 20:11: Glucometer 192H 10/09/18 05:19: Glucometer 153H 10/09/18 06:00: White Blood Count 6.6, Red Blood Count 3.08L, Hemoglobin 9.2L, Hematocrit 28L, Mean Corpuscular Volume 91, Mean Corpuscular Hemoglobin 30, Mean Corpuscular Hemoglobin Concent 33, Red Cell Distribution Width 15.9H, Platelet Count 104L, Mean Platelet Volume 9.7, Sodium Level 136, Potassium Level 3.6, Chloride Level 105, Carbon Dioxide Level 21, Anion Gap 10, Blood Urea Nitrogen 8, Creatinine 0.72, Estimat Glomerular Filtration Rate > 60, BUN/Creatinine Ratio 11, Glucose Level 138H, Calcium Level 7.9L, Corrected Calcium 9.1, Magnesium Level 1.8, Total Bilirubin 0.8, Aspartate Amino Transf (AST/SGOT) 27, Alanine Aminotransferase (ALT/SGPT) 46, Alkaline Phosphatase 89, Total Protein 5.0L, Albumin 2.5L, Vancomycin Level Trough 13.8 10/09/18 11:13: Glucometer 175H 10/09/18 15:30: Glucometer 185H 10/09/18 20:42: Glucometer 141H 10/10/18 05:18: Glucometer 152H 10/10/18 06:14: White Blood Count 5.8, Red Blood Count 2.98L, Hemoglobin 8.9L, Hematocrit 27L, Mean Corpuscular Volume 91, Mean Corpuscular Hemoglobin 30, Mean Corpuscular Hemoglobin Concent 33, Red Cell Distribution Width 15.6H, Platelet Count 99L, Mean Platelet Volume 10.1, Sodium Level 135, Potassium Level 3.2L, Chloride Level 104, Carbon Dioxide Level 21, Anion Gap 10, Blood Urea Nitrogen 15, Creatinine 1.30, Estimat Glomerular Filtration Rate 54, BUN/Creatinine Ratio 12, Glucose Level 135H, Calcium Level 8.3L, Corrected Calcium 9.6, Magnesium Level 1.7L, Total Bilirubin 0.7, Aspartate Amino Transf (AST/SGOT) 30, Alanine Aminotransferase (ALT/SGPT) 44, Alkaline Phosphatase 85, Total Protein 5.1L, Albumin 2.4L 10/10/18 11:01: Glucometer 139H 10/10/18 15:35: Glucometer 172H Microbiology 10/08/18 Catheter Tip Culture - Preliminary, Resulted No growth 10/10/18 C. difficile DNA Amplification - Final, Complete 10/10/18 C. difficile GDH Antigen & Toxins - Final, Complete 10/07/18 Gram Stain - Final, Complete 10/07/18 Sputum Culture - Final, Complete Usual upper respiratory evette Klebsiella pneumoniae Pending Labs Microbiology Date/Time Source Procedure Growth Status 10/08/18 12:30 Picc N/A Catheter Tip Culture - Preliminary No growth Resulted 10/07/18 17:55 Peripheral Lt Ac Blood Culture - Preliminary No growth Resulted 10/07/18 17:46 Peripheral Rt Ac Blood Culture - Preliminary No growth Resulted 10/07/18 17:29 Peripheral Lt Ac Blood Culture - Preliminary No growth Resulted 10/10/18 10:31 Stool C. difficile DNA Amplification - Final Complete 10/10/18 10:31 Stool C. difficile GDH Antigen & Toxins - Final Complete 10/07/18 18:28 Sputum Expectorated Gram Stain - Final Complete 10/07/18 18:28 Sputum Culture - Final Usual upper respiratory evette Klebsiella pneumoniae Complete Laboratory Tests 09/27/18 18:20: Glucometer 131 09/27/18 20:33: Glucometer 157 09/28/18 00:52: Glucometer 212 09/28/18 05:20: Glucometer 135 09/28/18 05:51: White Blood Count 12.6, Red Blood Count 3.96, Hemoglobin 12.1, Hematocrit 36, Mean Corpuscular Volume 91, Mean Corpuscular Hemoglobin 31, Mean Corpuscular Hemoglobin Concent 34, Red Cell Distribution Width 14.5, Platelet Count 216, Mean Platelet Volume 9.4, Neutrophils (%) (Auto) 80, Lymphocytes (%) (Auto) 8, M onocytes (%) (Auto) 11, Eosinophils (%) (Auto) 0, Basophils (%) (Auto) 1, Neutrophils # (Auto) 10.1, Lymphocytes # (Auto) 1.1, Monocytes # (Auto) 1.3, Eosinophils # (Auto) 0.0, Basophils # (Auto) 0.1, Sodium Level 138, Potassium Level 4.2, Chloride Level 102, Carbon Dioxide Level 27, Anion Gap 9, Blood Urea Nitrogen 33, Creatinine 0.77, Estimat Glomerular Filtration Rate > 60, BUN/ Creatinine Ratio 43, Glucose Level 132, Calcium Level 8.2, Corrected Calcium 9.0, Total Bilirubin 0.7, Aspartate Amino Transf (AST/SGOT) 33, Alanine Aminotransferase (ALT/SGPT) 51, Alkaline Phosphatase 66, Total Protein 5.3, Albumin 3.0 09/28/18 12:10: Glucometer 190 09/28/18 17:38: Glucometer 201 09/29/18 00:05: Glucometer 189 09/29/18 05:20: Glucometer 171 09/29/18 11:32: Glucometer 275 09/29/18 17:47: Glucometer 203 09/30/18 00:03: Glucometer 166 09/30/18 05:11: Glucometer 135 09/30/18 06:22: White Blood Count 18.8, Red Blood Count 3.92, Hemoglobin 12.1, Hematocrit 36, Mean Corpuscular Volume 91, Mean Corpuscular Hemoglobin 31, Mean Corpuscular Hemoglobin Concent 34, Red Cell Distribution Width 14.9, Platelet Count 212, Mean Platelet Volume 10.2, Neutrophils (%) (Auto) 86, Lymphocytes (%) (Auto) 7, Monocytes (%) (Auto) 7, Eosinophils (%) (Auto) 0, Basophils (%) (Auto) 1, Neutrophils # (Auto) 16.1, Lymphocytes # (Auto) 1.3, Monocytes # (Auto) 1.3, Eosinophils # (Auto) 0.0, Basophils # (Auto) 0.1, Neutrophils % (Manual) 70, Lymphocytes % (Manual) 10, Monocytes % (Manual) 3, Metamyelocytes % 8, Band Neutrophils 9, Polychromasia SLIGHT, Spherocytes SLIGHT, Sodium Level 139, Potassium Level 4.2, Chloride Level 103, Carbon Dioxide Level 26, Anion Gap 10, Blood Urea Nitrogen 22, Creatinine 0.74, Estimat Glomerular Filtration Rate > 60, BUN/Creatinine Ratio 30, Glucose Level 159, Calcium Level 8.7, Corrected Calcium 9.3, Total Bilirubin 0.9, Aspartate Amino Transf (AST/SGOT) 30, Alanine Aminotransferase (ALT/SGPT) 57, Alkaline Phosphatase 74, Total Protein 5.6, Albumin 3.3 09/30/18 11:39: Glucometer 121 09/30/18 18:37: Glucometer 241 10/01/18 00:05: Glucometer 205 10/01/18 06:00: Glucometer 109, White Blood Count 17.8, Red Blood Count 4.08, Hemoglobin 12.6, Hematocrit 37, Mean Corpuscular Volume 90, Mean Corpuscular Hemoglobin 31, Mean Corpuscular Hemoglobin Concent 34, Red Cell Distribution Width 15.2, Platelet Count 234, Mean Platelet Volume 9.8, Neutrophils (%) (Auto) 80, Lymphocytes (%) (Auto) 8, Monocytes (%) (Auto) 11, Eosinophils (%) (Auto) 0, Basophils (%) (Auto) 0, Neutrophils # (Auto) 14.3, Lymphocytes # (Auto) 1.5, Monocytes # (Auto) 1.9, Eosinophils # (Auto) 0.0, Basophils # (Auto) 0.1, Sodium Level 138, Potassium Level 4.0, Chloride Level 104, Carbon Dioxide Level 26, Anion Gap 8, Blood Urea Nitrogen 21, Creatinine 0.76, Estimat Glomerular Filtration Rate > 60, BUN/Creatinine Ratio 28, Glucose Level 110, Calcium Level 8.6, Corrected Calcium 9.2, Total Bilirubin 0.7, Aspartate Amino Transf (AST/SGOT) 34, Alanine Aminotransferase (ALT/SGPT) 62, Alkaline Phosphatase 76, Total Protein 5.7, Albumin 3.3 10/01/18 11:58: Glucometer 151 10/01/18 18:18: Glucometer 263 10/02/18 00:05: Glucometer 166 10/02/18 05:25: Glucometer 107 10/02/18 11:27: Glucometer 192 10/02/18 17:29: Glucometer 198 10/02/18 23:30: Glucometer 161 10/03/18 04:50: White Blood Count 13.0, Red Blood Count 3.85, Hemoglobin 11.8, Hematocrit 35, Mean Corpuscular Volume 92, Mean Corpuscular Hemoglobin 31, Mean Corpuscular Hemoglobin Concent 33, Red Cell Distribution Width 15.4, Platelet Count 165, Mean Platelet Volume 9.6, Neutrophils (%) (Auto) 79, Lymphocytes (%) (Auto) 11, Monocytes (%) (Auto) 10, Eosinophils (%) (Auto) 0, Basophils (%) (Auto) 0, Neutrophils # (Auto) 10.3, Lymphocytes # (Auto) 1.4, Monocytes # (Auto) 1.2, Eosinophils # (Auto) 0.0, Basophils # (Auto) 0.0, Sodium Level 138, Potassium Level 3.6, Chloride Level 103, Carbon Dioxide Level 28, Anion Gap 7, Blood Urea Nitrogen 19, Creatinine 0.74, Estimat Glomerular Filtration Rate > 60, BUN/Creatinine Ratio 26, Glucose Level 117, Calcium Level 8.3, Corrected Calcium 9.2, Total Bilirubin 0.6, Aspartate Amino Transf (AST/SGOT) 27, Alanine Aminotransferase (ALT/SGPT) 54, Alkaline Phosphatase 80, Total Protein 4.8, Albumin 2.9 10/03/18 04:51: Glucometer 115 10/03/18 11:59: Glucometer 150 10/03/18 18:01: Glucometer 172 10/04/18 00:00: Glucometer 193 10/04/18 05:51: Glucometer 165 10/04/18 11:57: Glucometer 187 10/04/18 18:41: Glucometer 249 10/04/18 23:51: Glucometer 136 10/05/18 05:40: White Blood Count 12.9, Red Blood Count 3.55, Hemoglobin 10.9, Hematocrit 33, Mean Corpuscular Volume 92, Mean Corpuscular Hemoglobin 31, Mean Corpuscular Hemoglobin Concent 33, Red Cell Distribution Width 15.8, Platelet Count 129, Mean Platelet Volume 9.8, Neutrophils (%) (Auto) 81, Lymphocytes (%) (Auto) 12, Monocytes (%) (Auto) 7, Eosinophils (%) (Auto) 0, Basophils (%) (Auto) 0, Neutrophils # (Auto) 10.5, Lymphocytes # (Auto) 1.5, Monocytes # (Auto) 0.9, Eosinophils # (Auto) 0.1, Basophils # (Auto) 0.0, Sodium Level 135, Potassium Level 3.7, Chloride Level 102, Carbon Dioxide Level 25, Anion Gap 8, Blood Urea Nitrogen 14, Creatinine 0.64, Estimat Glomerular Filtration Rate > 60, BUN/Creatinine Ratio 22, Glucose Level 143, Calcium Level 8.1, Corrected Calcium 9.2, Total Bilirubin 0.8, Aspartate Amino Transf (AST/SGOT) 19, Alanine Aminotransferase (ALT/SGPT) 42, Alkaline Phosphatase 74, Total Protein 4.7, Albumin 2.6 10/05/18 11:36: Glucometer 196 10/05/18 16:02: Glucometer 201 10/05/18 20:14: Glucometer 240 10/06/18 05:21: Glucometer 134 10/06/18 11:05: Glucometer 148 10/06/18 15:22: Glucometer 181 10/06/18 17:42: White Blood Count 11.7, Red Blood Count 3.99, Hemoglobin 12.3, Hematocrit 36, Mean Corpuscular Volume 91, Mean Corpuscular Hemoglobin 31, Mean Corpuscular Hemoglobin Concent 34, Red Cell Distribution Width 15.9, Platelet Count 118, Mean Platelet Volume 9.9, Neutrophils (%) (Auto) 81, Lymphocytes (%) (Auto) 11, Monocytes (%) (Auto) 7, Eosinophils (%) (Auto) 1, Basophils (%) (Auto) 0, Neutrophils # (Auto) 9.5, Lymphocytes # (Auto) 1.3, Monocytes # (Auto) 0.9, Eosinophils # (Auto) 0.1, Basophils # (Auto) 0.0, Sodium Level 135, Potassium Level 3.6, Chloride Level 99, Carbon Dioxide Level 25, Anion Gap 11, Blood Urea Nitrogen 10, Creatinine 0.72, Estimat Glomerular Filtration Rate > 60, BUN/Creatinine Ratio 14, Glucose Level 143, Lactic Acid Level 1.44, Calcium Level 8.7, Corrected Calcium 9.3, Total Bilirubin 0.9, Aspartate Amino Transf (AST/SGOT) 28, Alanine Aminotransferase (ALT/SGPT) 51, Alkaline Phosphatase 92, B-Type Natriuretic Peptide 342.8, Total Protein 6.0, Albumin 3.2 10/06/18 20:25: Urine Color YELLOW, Urine Clarity CLEAR, Urine pH 7, Urine Specific Cooks 1.010, Urine Protein 2+, Urine Glucose (UA) 1+, Urine Ketones NEGATIVE, Urine Nitrite NEGATIVE, Urine Bilirubin NEGATIVE, Urine Urobilinogen 1, Urine Leukocyte Esterase 1+, Urine RBC (Auto) 2+, Urine RBC 2-5, Urine WBC NONE, Urine Squamous Epithelial Cells RARE, Urine Crystals NONE, Urine Bacteria NEGATIVE, Urine Casts NONE, Urine Mucus NEGATIVE, Urine Culture Indicated NO 10/06/18 20:42: Glucometer 228 10/07/18 04:04: Glucometer 138 10/07/18 05:50: White Blood Count 9.3, Red Blood Count 3.49, Hemoglobin 10.6, Hematocrit 32, Mean Corpuscular Volume 91, Mean Corpuscular Hemoglobin 30, Mean Corpuscular Hemoglobin Concent 33, Red Cell Distribution Width 15.8, Platelet Count 113, Mean Platelet Volume 9.8, Neutrophils (%) (Auto) 78, Lymphocytes (%) (Auto) 14, Monocytes (%) (Auto) 7, Eosinophils (%) (Auto) 1, Basophils (%) (Auto) 0, Neut rophils # (Auto) 7.3, Lymphocytes # (Auto) 1.3, Monocytes # (Auto) 0.7, Eosinophils # (Auto) 0.1, Basophils # (Auto) 0.0, Sodium Level 133, Potassium Level 3.4, Chloride Level 99, Carbon Dioxide Level 26, Anion Gap 8, Blood Urea Nitrogen 12, Creatinine 0.70, Estimat Glomerular Filtration Rate > 60, BUN/Creatinine Ratio 17, Glucose Level 146, Calcium Level 8.2, Corrected Calcium 9.2, Phosphorus Level 2.4, Magnesium Level 1.3, Total Bilirubin 0.9, Aspartate Amino Transf (AST/SGOT) 20, Alanine Aminotransferase (ALT/SGPT) 41, Alkaline Phosphatase 80, Total Protein 5.3, Albumin 2.7 10/07/18 11:45: Glucometer 160 10/07/18 15:29: Glucometer 174 10/07/18 17:05: Urine Color YELLOW, Urine Clarity CLEAR, Urine pH 6, Urine Specific Cooks 1.020, Urine Protein 2+, Urine Glucose (UA) 1+, Urine Ketones NEGATIVE, Urine Nitrite NEGATIVE, Urine Bilirubin NEGATIVE, Urine Urobilinogen 4, Urine Leukocyte Esterase NEGATIVE, Urine RBC (Auto) 1+, Urine RBC NONE, Urine WBC RA RE, Urine Squamous Epithelial Cells NONE, Urine Crystals NONE, Urine Bacteria NEGATIVE, Urine Casts NONE, Urine Mucus NEGATIVE, Urine Culture Indicated NO 10/07/18 21:01: Glucometer 256 10/08/18 00:01: Glucometer 245 10/08/18 05:43: Glucometer 183 10/08/18 06:20: White Blood Count 6.9, Red Blood Count 3.32, Hemoglobin 10.0, Hematocrit 30, Mean Corpuscular Volume 91, Mean Corpuscular Hemoglobin 30, Mean Corpuscular Hemoglobin Concent 33, Red Cell Distribution Width 15.6, Platelet Count 96, Mean Platelet Volume 9.6, Neutrophils (%) (Auto) 81, Lymphocytes (%) (Auto) 11, Monocytes (%) (Auto) 8, Eosinophils (%) (Auto) 1, Basophils (%) (Auto) 0, Neutrophils # (Auto) 5.6, Lymphocytes # (Auto) 0.7, Monocytes # (Auto) 0.5, Eosinophils # (Auto) 0.1, Basophils # (Auto) 0.0, Sodium Level 136, Potassium Level 3.7, Chloride Level 105, Carbon Dioxide Level 21, Anion Gap 10, Blood Urea Nitrogen 9, Creatinine 0.68, Estimat Glomerular Filtration Rate > 60, BUN/Creatinine Ratio 13, Glucose Level 170, Calcium Level 7.8, Corrected Calcium 8.9, Phosphorus Level 2.6, Magnesium Level 1.6, Total Bilirubin 0.8, Aspartate Amino Transf (AST/SGOT) 21, Alanine Aminotransferase (ALT/SGPT) 44, Alkaline Phosphatase 87, Total Protein 5.1, Albumin 2.6, Vancomycin Level Trough 10.1 10/08/18 12:09: Glucometer 123 10/08/18 15:34: Glucometer 150 10/08/18 20:11: Glucometer 192 10/09/18 05:19: Glucometer 153 10/09/18 06:00: White Blood Count 6.6, Red Blood Count 3.08, Hemoglobin 9.2, Hematocrit 28, Mean Corpuscular Volume 91, Mean Corpuscular Hemoglobin 30, Mean Corpuscular Hemoglobin Concent 33, Red Cell Distribution Width 15.9, Platelet Count 104, Mean Platelet Volume 9.7, Sodium Level 136, Potassium Level 3.6, Chloride Level 105, Carbon Dioxide Level 21, Anion Gap 10, Blood Urea Nitrogen 8, Creatinine 0.72, Estimat Glomerular Filtration Rate > 60, BUN/Creatinine Ratio 11, Glucose Level 138, Calcium Level 7.9, Corrected Calcium 9.1, Magnesium Level 1.8, Total Bilirubin 0.8, Aspartate Amino Transf (AST/SGOT) 27, Alanine Aminotransferase (ALT/SGPT) 46, Alkaline Phosphatase 89, Total Protein 5.0, Albumin 2.5, Vancomycin Level Trough 13.8 10/09/18 11:13: Glucometer 175 10/09/18 15:30: Glucometer 185 10/09/18 20:42: Glucometer 141 10/10/18 05:18: Glucometer 152 10/10/18 06:14: White Blood Count 5.8, Red Blood Count 2.98, Hemoglobin 8.9, Hematocrit 27, Mean Corpuscular Volume 91, Mean Corpuscular Hemoglobin 30, Mean Corpuscular Hemoglobin Concent 33, Red Cell Distribution Width 15.6, Platelet Count 99, Mean Platelet Volume 10.1, Sodium Level 135, Potassium Level 3.2, Chloride Level 104, Carbon Dioxide Level 21, Anion Gap 10, Blood Urea Nitrogen 15, Creatinine 1.30, Estimat Glomerular Filtration Rate 54, BUN/Creatinine Ratio 12, Glucose Level 135, Calcium Level 8.3, Corrected Calcium 9.6, Magnesium Level 1.7, Total Bilirubin 0.7, Aspartate Amino Transf (AST/SGOT) 30, Alanine Aminotransferase (ALT/SGPT) 44, Alkaline Phosphatase 85, Total Protein 5.1, Albumin 2.4 10/10/18 11:01: Glucometer 139 10/10/18 15:35: Glucometer 172 Discharge Home Medications: Active Scripts Active Reported Losartan Potassium 25 Mg Tablet 25 Mg PO 1800 Digoxin 250 Mcg Tablet 250 Mcg PO 1700 Eliquis (Apixaban) 5 Mg Tablet 5 Mg PO BID Magnesium 250 Mg Tablet 250 Mg PO DAILY Triamcinolone Acetonide 0.1% Cream (Triamcinolone Acet) 15 Gm Cr TOP BID PRN Melatonin 10 Mg Tablet 10 Mg PO HS Mesalamine 1.2 Gm Tablet.dr 2.4 Gm PO HS TAKES 2 (1.2GM) TABLETS Flomax (Tamsulosin HCl) 0.4 Mg Cap 0.4 Mg PO 1800 Loratadine 10 Mg Tablet 10 Mg PO DAILY Vitamin D3 (Cholecalciferol (Vitamin D3)) 5,000 Unit Capsule 5,000 Unit PO DAILY Imodium A-D (Loperamide HCl) 2 Mg Tablet 1 Mg PO BID TAKES 1/2 (2MG) TABLET Cartia Xt (Diltiazem HCl) 180 Mg Cap.er.24h 360 Mg PO DAILY TAKES 2 (180MG) CAPSULES Glucosamine Chondroitin Cap (Gluc HCl/Csa/Chato Hy/Hyalur AC) 1 Each Capsule 1 Cap PO 1800 Centrum Silver Tablet (Multivit-Min/FA/Lycopene/Lut) 1 Each Tablet 1 Tab PO HS Rosuvastatin Calcium 5 Mg Tablet 2.5 Mg PO 1800 TAKES 1/2 (5MG) TABLET Probiotic (Lactobacillus Combination No.4) 1 Each Capsule 1 Cap PO BID Fluticasone Propionate 16 Gm [place].susp 1 [place] NS BID PRN Metoprolol Tartrate 100 Mg Tablet 100 Mg PO BID Furosemide 40 Mg Tablet 40 Mg PO DAILY Potassium Chloride 20 Meq Tab.er.prt 20 Meq PO DAILY Instructions to patient/family Please see electronic discharge instructions given to patient. Diagnosis/Problems Diagnosis/Problems (1) Myopathy (2) BRIDGER treated with BiPAP Status: Chronic (3) CAD S/P percutaneous coronary angioplasty Onset Date: 12/31/2013 Status: Acute (4) Pacemaker Status: Chronic (5) Asthma (6) Hx of CABG Status: Chronic (7) Leukocytosis Status: Acute (8) Weakness generalized (9) Anemia Status: Chronic (10) COPD (chronic obstructive pulmonary disease) Status: Chronic (11) Hypoxemia Status: Acute (12) Edema (13) Ulcerative colitis (14) Fecal incontinence (15) Contraindication to anticoagulation therapy (16) Pulmonary hemorrhage (17) Acute insomnia (18) Leukocytosis Clinical Quality Measures DVT/VTE Risk/Contraindication: Risk Factor Score Per Nursin RFS Level Per Nursing on Admit: 4+=Very High KOBI ESTEBAN DO Oct 10, 2018 21:21
--- NOTE | 2018-10-14 10:31 | Therapy Team Discharge Summary ---
Therapy Discharge Summary Discharge Recommendations Date of Discharge Oct 10, 2018 at 17:00 Physical Therapy This patient was transferred to ARU post acute medical stay and following a brief failed discharge home. Prior to his acute stay, he was independent at home and had actually recently mowed his lawn. He had a complicated acute stay and became very debilitated. Upon admission to ARU, he was dependent for transfers, using a sit to stand lift, unable to ambulate or attempt stairs due to inability to stand and was min assist with wc mobility. Treatment focused on functional LE strength and core strength to promote functional bed mobility, transfers and progression of standing to walking. He also performed wc mobility. His progress did wax and wane during the course of care. Ultimately at last visit on this unit, he was max assist for transfers, unable to ambulate and SBA with wc mobilty. Pt transferred back to acute care for continued medical management and recommend continued skilled therapy services. Will DC from ARU at this time. Occupational Therapy Decreased Activ Tolerance, Decreased UE Strength, Dependent Transfers, Impaired Bed Mobility, Impaired I ADL's, Impaired Self-Care Skills PT Fundraising Manager Goals Fundraising Manager Goals PT Fundraising Manager Goals Time Frame: Oct 26, 2018 Transfers (B,C,W/C) (FIM): 6 Roll Left to Right (QC): 6 Sit to Lying (QC): 6 Lying-Sitting on Side/Bed(QC): 6 Sit to Stand (QC): 6 Chair/Zsq-qm-[place] Xfer(QC): 6 Car Transfer (QC): 6 Does the Patient Walk: No and Walking Goal IS indicated Gait (FIM): 6 Gait distance (FIM): 3=150 ft Distance: 150 Walk 10 feet (QC): 6 Walk 10ft-Uneven Surface(QC): 6 Walk 50ft with 2 Turns (QC): 6 Walk 150 ft (QC): 6 Gait Level of Assist: 6 Gait Assistive Device: FWW Stairs (FIM): 6 # of Steps: 12 1 Step (curb) (QC): 6 4 Steps (QC): 6 12 Steps (QC): 6 Stairs Level Of Assist: 6 Picking up an Object (QC): 5 No goals met; pt transferred to acute medical OT Fundraising Manager Goals Fundraising Manager Goals Time Frame: Oct 25, 2018 Eating (FIM): 6 Eating (QC): 6 Oral Hygiene (QC): 6 Grooming(FIM): 6 Bathing(FIM): 5 Shower/Bathe Self (QC): 5 Upper Body Dressing(FIM): 5 Upper Body Dressing (QC): 5 Lower Body Dressing(FIM): 5 Lower Body Dressing (QC): 5 On/Off Footwear (QC): 5 Toileting(FIM): 5 Toileting Hygiene (QC): 5 Toilet/Commode Transfer(FIM): 5 Toilet/Commode Transfer (QC): 5 Shower Transfer(FIM): 5 Additional Goals: 1-Demonstrate ADL Tasks, 2-Verbalize Understanding, 3- ImproveStrength/[place] 1=Demonstrate adherence to instructed precautions during ADL tasks. 2=Patient will verbalize/demonstrate understanding of assistive devices/modifications for ADL. 3=Patient will improve strength/tolerance for activity to enable patient to perform ADL's. Speech Care Home Goals Care Home Goals The patient will increase cognitive skills for safety and independence. NERY DALEY PT Oct 14, 2018 10:31
--- NOTE | 2018-10-14 11:40 | Therapy Team Discharge Summary ---
Therapy Discharge Summary Discharge Recommendations Date of Discharge Oct 10, 2018 at 17:00 Occupational Therapy Decreased Activ Tolerance, Decreased UE Strength, Dependent Transfers, Impaired Bed Mobility, Impaired I ADL's, Impaired Self-Care Skills Speech-Language Pathology The patient was admitted to the ARU s/p acute hospitalization for respiratory failure. The patient initially exhibited decreased cognitive deficits. ST skills treatment for cognitive deficits with mild improvement. The patient again became very ill and was sent to ICU. The patient was discharged from skilled ST at that time. PT Half-Way Goals Papier Mache Molder Goals PT Papier Mache Molder Goals Time Frame: Oct 26, 2018 Transfers (B,C,W/C) (FIM): 6 Roll Left to Right (QC): 6 Sit to Lying (QC): 6 Lying-Sitting on Side/Bed(QC): 6 Sit to Stand (QC): 6 Chair/Jdn-bt-Vzpwu Xfer(QC): 6 Car Transfer (QC): 6 Does the Patient Walk: No and Walking Goal IS indicated Gait (FIM): 6 Gait distance (FIM): 3=150 ft Distance: 150 Walk 10 feet (QC): 6 Walk 10ft-Uneven Surface(QC): 6 Walk 50ft with 2 Turns (QC): 6 Walk 150 ft (QC): 6 Gait Level of Assist: 6 Gait Assistive Device: FWW Stairs (FIM): 6 # of Steps: 12 1 Step (curb) (QC): 6 4 Steps (QC): 6 12 Steps (QC): 6 Stairs Level Of Assist: 6 Picking up an Object (QC): 5 OT Papier Mache Molder Goals Papier Mache Molder Goals Time Frame: Oct 25, 2018 Eating (FIM): 6 Eating (QC): 6 Oral Hygiene (QC): 6 Grooming(FIM): 6 Bathing(FIM): 5 Shower/Bathe Self (QC): 5 Upper Body Dressing(FIM): 5 Upper Body Dressing (QC): 5 Lower Body Dressing(FIM): 5 Lower Body Dressing (QC): 5 On/Off Footwear (QC): 5 Toileting(FIM): 5 Toileting Hygiene (QC): 5 Toilet/Commode Transfer(FIM): 5 Toilet/Commode Transfer (QC): 5 Shower Transfer(FIM): 5 Additional Goals: 1-Demonstrate ADL Tasks, 2-Verbalize Understanding, 3- ImproveStrength/Gilbert 1=Demonstrate adherence to instructed precautions during ADL tasks. 2=Patient will verbalize/demonstrate understanding of assistive devices/modifications for ADL. 3=Patient will improve strength/tolerance for activity to enable patient to perform ADL's. Speech Papier Mache Molder Goals Papier Mache Molder Goals The patient will increase cognitive skills for safety and independence. Met at 80% ARI LENZ Oct 14, 2018 11:40
--- NOTE | 2018-10-14 13:35 | Therapy Team Discharge Summary ---
Therapy Discharge Summary Discharge Recommendations Date of Discharge Oct 10, 2018 at 17:00 Therapy D/C Recommendations: 24 hr Supervision Occupational Therapy Pt. seen for increased overall strength to increase independence. Due to change in medical status, pt. has discharged to medical floor. Some goals met, but pt. still requires increased assist with LE dressing and bathing. At this time, pt. is receiving 24 hour care. Decreased Activ Tolerance, Decreased UE Strength, Dependent Transfers, Impaired Bed Mobility, Impaired Funct Balance, Impaired I ADL's, Impaired Self-Care Skills PT Halfway Goals Carpenter/Labor Goals PT Halfway Goals Time Frame: Oct 26, 2018 Transfers (B,C,W/C) (FIM): 6 Roll Left to Right (QC): 6 Sit to Lying (QC): 6 Lying-Sitting on Side/Bed(QC): 6 Sit to Stand (QC): 6 Chair/Wfc-qt-Atjjw Xfer(QC): 6 Car Transfer (QC): 6 Does the Patient Walk: No and Walking Goal IS indicated Gait (FIM): 6 Gait distance (FIM): 3=150 ft Distance: 150 Walk 10 feet (QC): 6 Walk 10ft-Uneven Surface(QC): 6 Walk 50ft with 2 Turns (QC): 6 Walk 150 ft (QC): 6 Gait Level of Assist: 6 Gait Assistive Device: FWW Stairs (FIM): 6 # of Steps: 12 1 Step (curb) (QC): 6 4 Steps (QC): 6 12 Steps (QC): 6 Stairs Level Of Assist: 6 Picking up an Object (QC): 5 OT Halfway Goals Carpenter/Labor Goals Time Frame: Oct 25, 2018 Eating (FIM): 6 (met) Eating (QC): 6 (met) Oral Hygiene (QC): 6 (not met) Grooming(FIM): 6 (not met) Bathing(FIM): 5 (not met) Shower/Bathe Self (QC): 5 (not met) Upper Body Dressing(FIM): 5 (met) Upper Body Dressing (QC): 5 (not met) Lower Body Dressing(FIM): 5 (not met) Lower Body Dressing (QC): 5 (not met) On/Off Footwear (QC): 5 (not met) Toileting(FIM): 5 (not met) Toileting Hygiene (QC): 5 (not met) Toilet/Commode Transfer(FIM): 5 (not met) Toilet/Commode Transfer (QC): 5 (not met) Shower Transfer(FIM): 5 (not met) Additional Goals: 1-Demonstrate ADL Tasks, 2-Verbalize Understanding, 3- ImproveStrength/Gilbert 1=Demonstrate adherence to instructed precautions during ADL tasks. 2=Patient will verbalize/demonstrate understanding of assistive devices/modifications for ADL. 3=Patient will improve strength/tolerance for activity to enable patient to perform ADL's. Speech Halfway Goals Carpenter/Labor Goals The patient will increase cognitive skills for safety and independence. Met at 80% ANURAG HENRIQUEZ OT Oct 14, 2018 13:35
== END 2018-10-10 17:00 | disposition short-term general hospital (02) | DRG 91 ==
LOC: UNDOLOA 10-10 17:00
PROVIDERS: ADMIT Internal Medicine; ATTEND Internal Medicine
DX: G72.81 Critical illness myopathy (principal); R04.89 Hemorrhage from other sites in respiratory passages; J15.0 Pneumonia due to Klebsiella pneumoniae; G72.0 Drug-induced myopathy; K51.90 Ulcerative colitis, unspecified, without complications; I48.92 Unspecified atrial flutter; I25.810 Atherosclerosis of coronary artery bypass graft(s) without angina pectoris; I48.2 Chronic atrial fibrillation; E83.42 Hypomagnesemia; E87.6 Hypokalemia; I25.10 Atherosclerotic heart disease of native coronary artery without angina pectoris; J43.9 Emphysema, unspecified; G47.33 Obstructive sleep apnea (adult) (pediatric); E78.5 Hyperlipidemia, unspecified; I10 Essential (primary) hypertension; N40.0 Benign prostatic hyperplasia without lower urinary tract symptoms; G47.00 Insomnia, unspecified; M25.511 Pain in right shoulder; D72.829 Elevated white blood cell count, unspecified; R41.89 Other symptoms and signs involving cognitive functions and awareness; Z95.1 Presence of aortocoronary bypass graft; Z95.5 Presence of coronary angioplasty implant and graft; Z95.0 Presence of cardiac pacemaker; T38.0X5A Adverse effect of glucocorticoids and synthetic analogues, initial encounter; X50.9XXA Other and unspecified overexertion or strenuous movements or postures, initial encounter
CPT/HCPCS: 36415; 70450; 71045; 71046; 76937; 80053; 80202; 81000; 82962; 83605; 83735; 83880; 84100; 85007; 85025; 85027; 87040; 87070; 87077; 87186; 87205; 87324; 87449; 87493; 94640; 94760

== ENCOUNTER 2018-10-10 16:35 | Inpatient (IN) | payer MEDICARE ==
[2018-10-10] VITALS (9 sets, daily range): BP systolic 112–142; BP diastolic 58–78
[2018-10-10] MEDS ORDERED: NS IV 1000 ML 1,000 ML IV SCH (18:15)
[2018-10-10] MEDS ORDERED: ALPRAZolam 0.25 MG (XANAX) TAB PO PRN (18:15)
[2018-10-10] MEDS ORDERED: ACETAMINOPHEN 500 MG TAB (TYLENOL) PO PRN (18:15)
[2018-10-10] MEDS ORDERED: guaiFENesin/CODEINE (ROBITUSSIN AC) 10ML UDC PO PRN (18:15)
[2018-10-10] MEDS ORDERED: ONDANSETRON 4 MG/2 ML (SDV) Z0FRAN IVP PRN (18:15)
[2018-10-10] MEDS ORDERED: diphenhydrAMINE 25 MG TAB (BENADRYL) PO PRN (18:15)
[2018-10-10] MEDS ORDERED: DOCUSATE SODIUM 100 MG (COLACE) CAP PO PRN (18:15)
[2018-10-10] MEDS ORDERED: MELATONIN 3 MG TABLET PO PRN (18:15)
[2018-10-10] MEDS ORDERED: CALCIUM CARBONATE 500 MG (TUMS) TAB.CHEW PO PRN (18:15)
[2018-10-10] MEDS ORDERED: HYDROcodone/APAP 5 MG/325 MG (LORTAB) TAB PO PRN (18:15)
[2018-10-10] MEDS ORDERED: hydrALAZINE (APRESOLINE) 25 MG TAB PO PRN (18:15)
[2018-10-10 19:08] LABS: BASOPHILS % (AUTO) 0 % (0-10); EOSINOPHILS # (AUTO) 0.2 10^3/uL (0.0-0.3); EOSINOPHILS % (AUTO) 4 % (0-10); HEMATOCRIT 25 % (40-54); HEMOGLOBIN 8.4 G/DL (13.3-17.7); LYMPHOCYTES # (AUTO) 1.1 X 10^3 (1.0-4.0); LYMPHOCYTES % (AUTO) 19 % (12-44); MEAN CORPUSCULAR HEMOGLOBIN 30 PG (25-34); MEAN CORPUSCULAR HGB CONC 34 G/DL (32-36); MEAN CORPUSCULAR VOLUME 89 FL (80-99); MEAN PLATELET VOLUME 9.5 FL (7.4-10.4); MONOCYTES # (AUTO) 0.3 X 10^3 (0.0-1.0); MONOCYTES % (AUTO) 5 % (0-12); NEUTROPHILS % (AUTO) 72 % (42-75); PLATELET COUNT 108 10^3/uL (130-400); RED CELL DISTRIBUTION WIDTH 15.6 % (10.0-14.5); WHITE BLOOD COUNT 5.5 10^3/uL (4.3-11.0)
[2018-10-10 19:30] LABS: CALCIUM 8.2 MG/DL (8.5-10.1); CREATININE SERUM 1.23 MG/DL (0.60-1.30); POTASSIUM 3.2 MMOL/L (3.6-5.0)
[2018-10-10] MEDS ORDERED: FLUTICASONE NASAL SPRAY (FLONASE) 16 GM BTL NS PRN (19:30)
--- NOTE | 2018-10-10 20:11 | NUR ---
Text to Dr Mijares to notify of Lab results that were ordered earlier. No new orders.
[2018-10-10] MEDS: SENNA W/DOCUSATE (SENOKOT S) TABLET PO SCH (20:19)
[2018-10-10] MEDS ORDERED: KCL 20 MEQ TAB (K-DUR) PO ONE (20:28)
[2018-10-10] MEDS: LACTOBACILLUS ACIDOPHILUS (PROBIOTIC) CAPSULE PO SCH (20:38)
[2018-10-10] MEDS: DICLOFENAC 1% GEL 100 GM (VOLTAREN) TUBE TOP SCH (20:38)
[2018-10-10] MEDS: meTOprolol TARTRATE 25 MG (LOPRESSOR) TABLET PO SCH (20:38)
[2018-10-10] MEDS: inSUlin ASPART (NovoLOG) 1 UNIT/0.01 ML (CHARGE PER UNIT) SQ SCH (20:43)
[2018-10-10] MEDS: DULoxetine 20 MG (CYMBALTA) CAP PO SCH (20:45)
[2018-10-10] MEDS ORDERED: traZODone 50 MG (DESYREL) TAB PO SCH (21:00)
[2018-10-10] MEDS ORDERED: RT-ALBUTEROL/IPRATROPIUM 3 ML (DUONEB) VIAL INH SCH (21:00)
--- NOTE | 2018-10-10 21:00 | NUR ---
Dr Parsons here at this time to see patient. No new orders at this time.
--- NOTE | 2018-10-10 21:23 | History & Physicial ---
History of Present Illness History of Present Illness Reason for visit/HPI PT REPORTS THAT HE WAS BROUGHT UP FROM THE INPATIENT REHAB UNIT BECAUSE HE WAS INCREASINGLY SHORT OF BREATH AND RUNNING ANOTHER FEVER. THE STAFF IN THE INPATIENT REHAB UNIT WAS IN FEAR THAT HE WOULD NOT BE STABLE OVERNIGHT AND HE WAS THUS SHIPPED UP TO THE ICU FOR FURTHER MONITORING AND SUPPORTIVE CARE. Date of Admission Oct 10, 2018 at 17:01 Date Seen by a Provider: Oct 10, 2018 Time Seen by a Provider: 21:00 I consulted on this patient on 10/10/18 21:22 Attending Physician codey parsons md Admitting Physician Codey Parsons MD Consult DR. HESS Allergies and Home Medications Allergies Coded Allergies: Sulfa (Sulfonamide Antibiotics) (Verified Allergy, Unknown, 08/31/18) montelukast (Unverified Adverse Reaction, Unknown, 06/08/16) Hallucinations per pt Home Medications Apixaban 5 Mg Tablet, 5 MG PO BID, (Reported) Cholecalciferol (Vitamin D3) 5,000 Unit Capsule, 5,000 UNIT PO DAILY, (Reported) Digoxin 250 Mcg Tablet, 250 MCG PO 1700, (Reported) Diltiazem HCl 180 Mg Cap.er.24h, 360 MG PO DAILY, (Reported) TAKES 2 (180MG) CAPSULES Fluticasone Propionate 16 Gm Filer.susp, 1 SPRAY NS BID PRN for ALLERGIES, (Reported) Furosemide 40 Mg Tablet, 40 MG PO DAILY, (Reported) Gluc HCl/Csa/Chato Hy/Hyalur AC 1 Each Capsule, 1 CAP PO 1800, (Reported) Lactobacillus Combination No.4 1 Each Capsule, 1 CAP PO BID, (Reported) Loperamide HCl 2 Mg Tablet, 1 MG PO BID, (Reported) TAKES 1/2 (2MG) TABLET Loratadine 10 Mg Tablet, 10 MG PO DAILY, (Reported) Losartan Potassium 25 Mg Tablet, 25 MG PO 1800, (Reported) Magnesium 250 Mg Tablet, 250 MG PO DAILY, (Reported) Melatonin 10 Mg Tablet, 10 MG PO HS, (Reported) Mesalamine 1.2 Gm Tablet.dr, 2.4 GM PO HS, (Reported) TAKES 2 (1.2GM) TABLETS Metoprolol Tartrate 100 Mg Tablet, 100 MG PO BID, (Reported) Multivit-Min/FA/Lycopene/Lut 1 Each Tablet, 1 TAB PO HS, (Reported) Potassium Chloride 20 Meq Tab.er.prt, 20 MEQ PO DAILY, (Reported) Rosuvastatin Calcium 5 Mg Tablet, 2.5 MG PO 1800, (Reported) TAKES 1/2 (5MG) TABLET Tamsulosin HCl 0.4 Mg Cap, 0.4 MG PO 1800, (Reported) Triamcinolone Acet 15 Gm Cr, TOP BID PRN for SORES, (Reported) Patient Home Medication List Home Medication List Reviewed: Yes Past Ntszacn-Lqjlet-Amxjkj Hx Patient Social History Marrital Status: Living Status: LIVES AT HOME WITH SPOUSE Employed/Student: retired Alcohol Use: Denies Use Recreational Drug Use: No Smoking Status: Former Smoker Former Smoker, Quit: Dec 08, 1991 Type Used: Cigarettes 2nd Hand Smoke Exposure: No Physical Abuse Screen: No Sexual Abuse: No Recent Foreign Travel: No Contact w/other who traveled: No Recent Hopitalizations: Yes Recent Infectious Disease Expo: Yes Immunizations Up To Date Pediatric: Yes Date of Pneumonia Vaccine: August 05, 2018 Date of Influenza Vaccine: Jan 08, 2017 Seasonal Allergies Seasonal Allergies: Yes Surgeries Yes (5 VESSEL CABG, PACEMAKER X2, STENTS X2, skin ca removal) Cardiac, CABG, Coronary Stent, Gallbladder, Pacemaker Respiratory Yes (BI-PAP) COPD, Pneumonia, Sleep Apnea Currently Using CPAP: No Currently Using BIPAP: Yes Cardiovascular Yes (PACER, STENTS, BYPASS) Atrial Fibrillation, Coronary Artery Disease, High Cholesterol, Hypertension Neurological No Reproductive System Hx Reproductive Disorders: No Sexually Transmitted Disease: No HIV/AIDS: No Genitourinary Yes Benign Prostatic Hyperpl Gastrointestinal Yes (ULCERATIVE COLITIS) Colitis, Chronic Diarrhea, Polyps Musculoskeletal Yes Endocrine History of Endocrine Disorders: Yes (steroid induced diabetic) HEENT History of HEENT Disorders: No Loss of Vision: Denies Hearing Impairment: Denies Cancer Yes (SKIN CANCER) Skin, Melanoma Psychosocial History of Psychiatric Problem: No Integumentary History of Skin or Integumenta: Yes (melanoma) Blood Transfusions History of Blood Disorders: No Adverse Reaction to a Blood Tr: No (N/A) Reviewed Nursing Assessment Reviewed/Agree w Nursing PMH: Yes Family Medical History Significant Family History: Heart Disease, Hypertension Family Hx: Arthritis Cardiovascular disease Kidney disease G8 BROTHER Leukemia G8 BROTHER Multiple myeloma Prostate cancer 19 FATHER Review of Systems Constitutional: No chills; fever, malaise, weakness EENTM: hoarseness; No throat pain Respiratory: cough, dyspnea on exertion, phlegm, short of breath Cardiovascular: edema, Hx of Intervention, palpitations Gastrointestinal: No abdominal pain; diarrhea Genitourinary: no symptoms reported Musculoskeletal: No back pain; muscle weakness Skin: no symptoms reported Psychiatric/Neurological: Denies Anxiety; Depressed All Other Systems Reviewed Negative Unless Noted: Yes Physical Exam Vital Signs Vital Signs - First Documented 10/10/18 17:00 Temp 99.3 Pulse 75 Resp 20 B/P (MAP) 142/71 (94) Pulse Ox 91 O2 Delivery Nasal Cannula O2 Flow Rate 5.00 Capillary Refill : Less Than 3 Seconds Height, Weight, BMI Height: 5'6.00" Weight: 182lbs. 3.2oz. 82.415649sm; 33.1 BMI Method:Stated General Appearance: WD/WN, Mild Distress Eyes: Bilateral Eye Normal Inspection, Bilateral Eye PERRL, Bilateral Eye EOMI HEENT: PERRL/EOMI, Pharynx Normal Neck: Full Range of Motion, Supple Respiratory: Chest Non Tender, Crackles, Decreased Breath Sounds Cardiovascular: Irregularly Irregular Gastrointestinal: Normal Bowel Sounds, Non Tender, Soft Rectal: Deferred Back: Normal Inspection Extremity: Normal Capillary Refill, Pedal Edema Neurologic/Psychiatric: Alert, Oriented x3, No Motor/Sensory Deficits, Normal Mood/Affect Skin: Normal Color, Warm/Dry Lymphatic: No Adenopathy Assessment/Plan Assessment and Plan PULMONARY HEMORRHAGE PNEUMONIA ATRIAL FIBRILLATION HYPERTENSION HYPERLIPIDEMIA ULCERATIVE COLITIS GENERALIZED WEAKNESS INSOMNIA CHRONIC ANTICOAGULATION USE BPH CRITICAL CARE MYOPATHY EMPHYSEMA HYPOMAGNESEMIA HYPOKALEMIA DIARRHEA PULMONARY HEMORRHAGE WITH PNEUMONIA - PULMONARY HEMORRHAGE HAS RESOLVED, BUT PT SPIKED A FEVER OVER THIS PAST WEEKEND AND HE WAS PLACED BACK ON ZOSYN AND VANCOMYCIN, THE CHEST XRAY HAS BEEN NEGATIVE, HIS WHITE COUNTS HAVE REMAINED NORMAL, AND WE HAVE A SPUTUM WHICH IS SHOWING KLEBSIELLA - THE MIDLINE TIP IS BEING CULTURED, THUS FAR THE MIDLINE TIP IS NOT GROWING ANY BACTERIA - THE VANCOMYCIN HAS BEEN STOPPED. WE WILL CONTINUE WITH SERIAL XRAYS AND SERIAL LABS PREVIOUSLY ORDERED. ATRIAL FIBRILLATION - -ASPIRIN RESTARTED ON 10/02/18, ELIQUIS HAD TO BE STOPPED DUE TO RECURRENT PULMONARY HEMORRHAGES. - DEFER OTHER TREATMENT TO DR. JUNIOR - PT'S PRIMARY ROLL TENSION TESTER. HYPERTENSION - CONTINUE WITH METOPROLOL ORALLY HYPERLIPIDEMIA - STABLE - CONTINUE TO HOLD STATIN DUE TO HIS CRITICAL ILLNESS MYOPATHY ULCERATIVE COLITIS - RESTARTED LIALDA GENERALIZED WEAKNESS -PT WAS ADMITTED TO INPT REHAB FOR THERAPY FOR STRENGTHENING. EMPHYSEMA - DX ON HIS CT SCAN - HE WILL NEED CONTINUED TREATMENT OF HIS ILLNESS WITH DR. HESS AN OUTPATIENT. INSOMNIA - RESTARTED HIS HOME MELATONIN DOSING. BPH - RESTARTED TAMSULOSIN. HYPOMAGNESEMIA - MAGNESIUM IV AGAIN TODAY, MONITOR LABS HYPOKALEMIA - RESTART THE POTASSIUM DAILY AND GIVE 30MEQ TODAY. CHECK LABS IN THE MORNING. DIARRHEA - PT HAS KNOWN ULCERATIVE COLITIS - WILL CHECK A CDIFF TO MAKE SURE THAT IS NOT CONTRIBUTING TO HIS ILLNESS AND FEVERS, START ON FLAGYL AND WILL STOP IF HIS CDIFF IS NEGATIVE. PERSISTENT FEVERS DESPITE TREATMENT OF THE KLEBSIELLA - WILL GIVE A FEW DAYS OF ANTIFUNGAL THERAPY - OF DIFLUCAN 100MG DAILY X 5 DAYS. PT WAS TRANSFERRED UP TO FROM INPT REHAB TO ICU FOR HIS PULMONARY SYMPTOMS. Admission Diagnosis PULMONARY HEMORRHAGE PNEUMONIA ATRIAL FIBRILLATION HYPERTENSION HYPERLIPIDEMIA ULCERATIVE COLITIS GENERALIZED WEAKNESS INSOMNIA CHRONIC ANTICOAGULATION USE BPH CRITICAL CARE MYOPATHY EMPHYSEMA HYPOMAGNESEMIA HYPOKALEMIA DIARRHEA Admission Status: Inpatient Order (span 2 midnights) Reason for Inpatient Admission: INPT ADMISSION FOR PNEUMONIA, FEVERS, PULMONARY DISTRESS CODEY PARSONS MD Oct 10, 2018 21:23
[2018-10-10] MEDS: metroNIDAZOLE 500MG/100ML IVPB 100 ML IV SCH (21:26)
[2018-10-10] MEDS: PIPERACILLIN/TAZOBACTAM (BULK) 4.5 GM in NS (IVPB) 100 ML IV SCH (22:30)
[2018-10-11] VITALS (10 sets, daily range): BP systolic 129–156; BP diastolic 60–82
[2018-10-11 02:42] LABS: BASOPHILS % (AUTO) 0 % (0-10); EOSINOPHILS # (AUTO) 0.2 10^3/uL (0.0-0.3); EOSINOPHILS % (AUTO) 4 % (0-10); HEMATOCRIT 25 % (40-54); HEMOGLOBIN 8.4 G/DL (13.3-17.7); LYMPHOCYTES % (AUTO) 19 % (12-44); MEAN CORPUSCULAR HEMOGLOBIN 30 PG (25-34); MEAN CORPUSCULAR HGB CONC 33 G/DL (32-36); MEAN CORPUSCULAR VOLUME 90 FL (80-99); MEAN PLATELET VOLUME 9.6 FL (7.4-10.4); MONOCYTES # (AUTO) 0.3 X 10^3 (0.0-1.0); MONOCYTES % (AUTO) 5 % (0-12); NEUTROPHILS % (AUTO) 72 % (42-75); PLATELET COUNT 109 10^3/uL (130-400); RED CELL DISTRIBUTION WIDTH 15.8 % (10.0-14.5); WHITE BLOOD COUNT 5.6 10^3/uL (4.3-11.0)
[2018-10-11 03:00] LABS: CALCIUM 8.3 MG/DL (8.5-10.1); CREATININE SERUM 1.25 MG/DL (0.60-1.30); MAGNESIUM 1.8 MG/DL (1.8-2.4); PHOSPHORUS 3.1 MG/DL (2.3-4.7); POTASSIUM 3.9 MMOL/L (3.6-5.0)
[2018-10-11] MEDS ORDERED: FUROSEMIDE 40 MG/4 ML INJ (LASIX) ONE (04:52)
--- NOTE | 2018-10-11 04:54 | Pulmonary Consultation ---
History of Present Illness History of Present Illness Date of Consultation 10/11/18 04:52 Time Seen by Provider: 10:22 Date of Admission History of Present Illness 78yo who has had multiple hospitalizations, pulmonary hemorrhage, Afib admitted from in patient rehab unit secondary to worsening SOB and persistent fever while on Abx. Pt was admitted to ICU for close observation. Pt denies hemoptysis however is coughing up yellow/green sputum. I am consulted for pulmonary/ICU management. Allergies and Home Medications Allergies Coded Allergies: Sulfa (Sulfonamide Antibiotics) (Verified Allergy, Unknown, 08/31/18) montelukast (Unverified Adverse Reaction, Unknown, 06/08/16) Hallucinations per pt Home Medications Apixaban 5 Mg Tablet, 5 MG PO BID, (Reported) Cholecalciferol (Vitamin D3) 5,000 Unit Capsule, 5,000 UNIT PO DAILY, (Reported) Digoxin 250 Mcg Tablet, 250 MCG PO 1700, (Reported) Diltiazem HCl 180 Mg Cap.er.24h, 360 MG PO DAILY, (Reported) TAKES 2 (180MG) CAPSULES Fluticasone Propionate 16 Gm Maysel.susp, 1 SPRAY NS BID PRN for ALLERGIES, (Reported) Furosemide 40 Mg Tablet, 40 MG PO DAILY, (Reported) Gluc HCl/Csa/Chato Hy/Hyalur AC 1 Each Capsule, 1 CAP PO 1800, (Reported) Lactobacillus Combination No.4 1 Each Capsule, 1 CAP PO BID, (Reported) Loperamide HCl 2 Mg Tablet, 1 MG PO BID, (Reported) TAKES 1/2 (2MG) TABLET Loratadine 10 Mg Tablet, 10 MG PO DAILY, (Reported) Losartan Potassium 25 Mg Tablet, 25 MG PO 1800, (Reported) Magnesium 250 Mg Tablet, 250 MG PO DAILY, (Reported) Melatonin 10 Mg Tablet, 10 MG PO HS, (Reported) Mesalamine 1.2 Gm Tablet.dr, 2.4 GM PO HS, (Reported) TAKES 2 (1.2GM) TABLETS Mesalamine 1.2 Gm Tablet.dr, 2 TAB PO DAILY WITH DINNER, (Reported) Metoprolol Tartrate 100 Mg Tablet, 100 MG PO BID, (Reported) Multivit-Min/FA/Lycopene/Lut 1 Each Tablet, 1 TAB PO HS, (Reported) Potassium Chloride 20 Meq Tab.er.prt, 20 MEQ PO DAILY, (Reported) Rosuvastatin Calcium 5 Mg Tablet, 2.5 MG PO 1800, (Reported) TAKES 1/2 (5MG) TABLET Tamsulosin HCl 0.4 Mg Cap, 0.4 MG PO 1800, (Reported) Triamcinolone Acet 15 Gm Cr, TOP BID PRN for SORES, (Reported) Past Uopckdw-Esrsnh-Niwpcv Hx Patient Social History Alcohol Use: Denies Use Recreational Drug Use: No Type Used: Cigarettes Former Smoker, Quit: Dec 08, 1991 2nd Hand Smoke Exposure: No Recent Foreign Travel: No Contact w/Someone Who Travel: No Recent Hopitalizations: Yes Immunizations Up To Date PED Vaccines UTD: Yes Date of Pneumonia Vaccine: August 05, 2018 Date of Influenza Vaccine: Jan 08, 2017 Seasonal Allergies Seasonal Allergies: Yes Past Medical History Surgeries: Yes (5 VESSEL CABG, PACEMAKER X2, STENTS X2, skin ca removal) Cardiac, CABG, Coronary Stent, Gallbladder, Pacemaker Respiratory: Yes (BI-PAP) Pneumonia, Sleep Apnea, COPD Currently Using CPAP: No Currently Using BIPAP: Yes Cardiac: Yes (PACER, STENTS, BYPASS) Atrial Fibrillation, Coronary Artery Disease, High Cholesterol, Hypertension Neurological: No Reproductive Disorders: No Sexually Transmitted Disease: No HIV/AIDS: No Genitourinary: Yes Benign Prostatic Hyperpl Gastrointestinal: Yes (ULCERATIVE COLITIS) Colitis, Chronic Diarrhea, Polyps Musculoskeletal: Yes Endocrine: Yes (steroid induced diabetic) HEENT: No Loss of Vision: Denies Hearing Impairment: Denies Cancer: Yes (SKIN CANCER) Skin, Melanoma Psychosocial: No Integumentary: Yes (melanoma) Blood Disorders: No Adverse Reaction/Blood Tranf: No (N/A) Family Medical History Arthritis Cardiovascular disease Kidney disease G8 BROTHER Leukemia G8 BROTHER Multiple myeloma Prostate cancer 19 FATHER Heart Disease, Hypertension Review of Systems Time Seen by Provider: 10:24 Constitutional: Fever, Chills, Sweats, Weakness, Malaise, Other Eyes: No: Pain, Vision change, Conjunctivae inflammation, Eyelid inflammation, Other, Redness ENT: Nose congestion; No: Ear pain, Ear discharge, Nose pain, Nose discharge, Mouth pain, Mouth swelling, Throat pain, Throat swelling, Other Respiratory: Cough, Dry, Shortness of breath, Wheezing, Hemoptysis, Pleuritic Pain, Sputum; No: SOB with excertion, Wheezing, Other Cardiovascular: Palpitations, Paroxysmal Noc. Dyspnea, Edema, Lt Headedness; No: Chest Pain, Orthopnea, Other Gastrointestinal: Nausea, Constipation; No: Vomiting, Abdominal Pain, Diarrhea, Melena, Hematochezia, Other Genitourinary: No Dysuria, No Frequency, No Incontinence, No Hematuria, No Retention, No Other Sepsis Event Evaluation Height, Weight, BMI Height: 5'6.00" Weight: 182lbs. 3.2oz. 82.518925zo; 33.1 BMI Method:Stated Exam Exam Vital Signs Date Time Temp Pulse Resp B/P (MAP) Pulse Ox O2 Delivery O2 Flow Rate FiO2 10/11/18 04:00 63 25 144/76 (98) 97 NIV CPAP 2.00 10/11/18 03:30 99 NIV CPAP 2.00 10/11/18 03:30 98.4 99 NIV CPAP 2.00 10/11/18 03:00 64 24 150/77 (101) 98 NIV CPAP 3.00 10/11/18 02:00 67 26 138/66 (90) 95 NIV CPAP 3.00 10/11/18 01:00 61 10/11/18 01:00 61 29 129/74 (92) 95 NIV CPAP 3.00 10/11/18 00:00 98.8 NIV CPAP 3.00 10/11/18 00:00 95 NIV CPAP 3.00 10/11/18 00:00 60 25 132/70 (90) 94 NIV CPAP 3.00 10/10/18 23:00 73 23 129/59 (82) 95 NIV CPAP 3.00 10/10/18 22:00 77 21 112/58 (76) 93 NIV CPAP 3.00 10/10/18 21:20 NIV CPAP 3.00 10/10/18 21:00 84 31 130/78 (95) 96 Nasal Cannula 3.00 10/10/18 20:00 99 Nasal Cannula 3.00 10/10/18 20:00 77 22 129/65 (86) 95 Nasal Cannula 3.00 10/10/18 19:34 99 Nasal Cannula 3.00 10/10/18 19:25 97.4 70 26 135/70 (91) 98 Nasal Cannula 5.00 10/10/18 19:00 81 28 135/70 (91) 98 Nasal Cannula 5.00 10/10/18 19:00 81 10/10/18 18:00 69 25 115/59 (77) 97 Nasal Cannula 5.00 10/10/18 17:15 78 39 133/77 (95) 92 Nasal Cannula 5.00 10/10/18 17:05 74 10/10/18 17:00 99.3 75 20 142/71 (94) 91 Nasal Cannula 5.00 I & O 10/11/18 07:00 Intake Total 585 ml Output Total 850 ml Balance -265 ml Height & Weight Height: 5'6.00" Weight: 182lbs. 3.2oz. 82.025572fy; 33.1 BMI Method:Stated General Appearance: Anxious, Chronically ill, Mild Distress HEENT: PERRL/EOMI, Normal ENT Inspection, Pharynx Normal Neck: Full Range of Motion, Non Tender, Supple Respiratory: Chest Non Tender, No Accessory Muscle Use, No Respiratory Distress, Crackles, Decreased Breath Sounds Cardiovascular: Regular Rate, Rhythm, No Edema Capillary Refill: Less Than 3 Seconds Gastrointestinal: normal bowel sounds, non tender, soft Extremity: Normal Capillary Refill, Normal Inspection, No Pedal Edema Neurologic/Psychiatric: Alert, Oriented x3 Skin: Normal Color, Warm/Dry Lymphatic: No Adenopathy Results Lab Laboratory Tests 10/10/18 19:01 10/11/18 02:30 Assessment/Plan Assessment/Plan Pulmonary hemorrhage -resolved Worsening hypoxia and persistent fever Klebiella PNA -Sensative to Zosyn -Monitor -Zosyn -Lamas cultures including mid line tip culture Pulmonary edema - secondary to IVF -IVF are SL -Will give 40mg of IV lasix x 1 -LA is normal Diarrhea - Cdiff ag is positive and Cdiff toxin is negative--pending -Flagyl DM -SSI may need to start Levemir BRIDGER -Out pt JUAN Don DO Oct 11, 2018 04:54
[2018-10-11] MEDS ORDERED: FUROSEMIDE 40 MG/4 ML INJ (LASIX) IVP ONE (05:00)
[2018-10-11] MEDS: metroNIDAZOLE 500MG/100ML IVPB 100 ML IV SCH (05:02)
[2018-10-11] MEDS: inSUlin ASPART (NovoLOG) 1 UNIT/0.01 ML (CHARGE PER UNIT) SQ SCH ×2 (05:14→11:24)
[2018-10-11] MEDS ORDERED: KCL 20 MEQ TAB (K-DUR) PO SCH (06:00)
[2018-10-11] MEDS ORDERED: MAGNESIUM 1 GM/100 ML IVPB 100 ML IV SCH (06:00)
[2018-10-11] MEDS ORDERED: POTASSIUM CL 10MEQ/50ML IVPB 50 ML IV SCH (06:00)
[2018-10-11] MEDS: PIPERACILLIN/TAZOBACTAM (BULK) 4.5 GM in NS (IVPB) 100 ML IV SCH (06:13)
[2018-10-11] MEDS ORDERED: LIDOCAINE 1% INJ 20 ML 20 ML VIAL ONE (06:37)
[2018-10-11] MEDS ORDERED: HEParin (CATH LAB) 0 ML IV ONE (06:37)
[2018-10-11] MEDS ORDERED: PANTOPRAZOLE 40 MG (PROTONIX) TAB PO SCH (07:00)
[2018-10-11] MEDS ORDERED: MIDAZOLAM 5 MG/5 ML (VERSED) VIAL ONE (07:27)
[2018-10-11] MEDS ORDERED: fentaNYL INJECTION 100 MCG/2 ML AMP ONE (07:27)
[2018-10-11] MEDS ORDERED: NS IV 1000 ML 1,000 ML ONE (07:28)
[2018-10-11] MEDS: SENNA W/DOCUSATE (SENOKOT S) TABLET PO SCH (07:41)
--- NOTE | 2018-10-11 07:44 | Progress Note ---
Subjective Date Seen by a Provider: Oct 11, 2018 Time Seen by a Provider: 07:30 Subjective/Events-last exam PT FEELING BETTER TODAY - HE DID NOT HAVE ANY FEVERS OVERNIGHT. HE DENIES CHEST PAIN, HE STILL HAS A PRODUCTIVE COUGH. Review of Systems General: No Chills; Fatigue HEENT: No Head Aches Pulmonary: No Dyspnea, No Cough Cardiovascular: No: Chest Pain, Palpitations Gastrointestinal: Diarrhea; No: Nausea, Abdominal Pain Genitourinary: Frequency Neurological: Weakness Focused Exam Lactate Level 10/10/18 19:01: Lactic Acid Level 0.92 Objective Exam Last Set of Vital Signs Vital Signs Date Time Temp Pulse Resp B/P (MAP) Pulse Ox O2 Delivery O2 Flow Rate FiO2 10/11/18 06:20 Nasal Cannula 3.00 10/11/18 06:00 81 25 148/74 (98) 95 10/11/18 03:30 98.4 Capillary Refill : Less Than 3 Seconds I&O Intake and Output 10/11/18 00:00 Intake Total 340 ml Output Total 500 ml Balance -160 ml Intake Oral 240 ml IV Total 100 ml Output Urine Total 500 ml # Urine Diapers 1 # Bowel Movements 1 Daily Weight Change Yes, 14-23 lbs General: Alert, Oriented X3, Cooperative, No Acute Distress HEENT: Atraumatic Neck: Supple Lungs: Other (DECREASED AIR MOVEMENT THROUGHOUT, IMPROVED IN BASES) Heart: Other (IRREGULARLY IRREGULAR) Abdomen: Normal Bowel Sounds, Soft, No Tenderness Extremities: No Clubbing, No Cyanosis Skin: No Rashes, No Breakdown Neuro: Cranial Nerves 3-12 NL Psych/Mental Status: Mental Status NL, Mood NL Results Lab Laboratory Tests 10/10/18 19:01: White Blood Count 5.5, Red Blood Count 2.80L, Hemoglobin 8.4L, Hematocrit 25L, Mean Corpuscular Volume 89, Mean Corpuscular Hemoglobin 30, Mean Corpuscular Hemoglobin Concent 34, Red Cell Distribution Width 15.6H, Platelet Count 108L, Mean Platelet Volume 9.5, Neutrophils (%) (Auto) 72, Lymphocytes (%) (Auto) 19, Monocytes (%) (Auto) 5, Eosinophils (%) (Auto) 4, Basophils (%) (Auto) 0, Neutrophils # (Auto) 4.0, Lymphocytes # (Auto) 1.1, Monocytes # (Auto) 0.3, Eosinophils # (Auto) 0.2, Basophils # (Auto) 0.0, Sodium Level 134L, Potassium Level 3.2L, Chloride Level 103, Carbon Dioxide Level 19L, Anion Gap 12, Blood Urea Nitrogen 14, Creatinine 1.23, Estimat Glomerular Filtration Rate 57, BUN/Creatinine Ratio 11, Glucose Level 107H, Lactic Acid Level 0.92, Calcium Level 8.2L, B-Type Natriuretic Peptide 948.9H 10/10/18 20:42: Glucometer 160H 10/11/18 02:30: White Blood Count 5.6, Red Blood Count 2.82L, Hemoglobin 8.4L, Hematocrit 25L, Mean Corpuscular Volume 90, Mean Corpuscular Hemoglobin 30, Mean Corpuscular Hemoglobin Concent 33, Red Cell Distribution Width 15.8H, Platelet Count 109L, Mean Platelet Volume 9.6, Neutrophils (%) (Auto) 72, Lymphocytes (%) (Auto) 19, Monocytes (%) (Auto) 5, Eosinophils (%) (Auto) 4, Basophils (%) (Auto) 0, Neutrophils # (Auto) 4.0, Lymphocytes # (Auto) 1.0, Monocytes # (Auto) 0.3, Eosinophils # (Auto) 0.2, Basophils # (Auto) 0.0, Sodium Level 135, Potassium Level 3.9, Chloride Level 104, Carbon Dioxide Level 19L, Anion Gap 12, Blood Urea Nitrogen 14, Creatinine 1.25, Estimat Glomerular Filtration Rate 56, BUN/Creatinine Ratio 11, Glucose Level 192H, Calcium Level 8.3L, Phosphorus Level 3.1, Magnesium Level 1.8 10/11/18 05:49: Glucometer 164H Assessment/Plan Assessment/Plan Assess & Plan/Chief Complaint PULMONARY HEMORRHAGE PNEUMONIA ATRIAL FIBRILLATION HYPERTENSION HYPERLIPIDEMIA ULCERATIVE COLITIS GENERALIZED WEAKNESS INSOMNIA CHRONIC ANTICOAGULATION USE BPH CRITICAL CARE MYOPATHY EMPHYSEMA HYPOMAGNESEMIA HYPOKALEMIA DIARRHEA PULMONARY HEMORRHAGE WITH PNEUMONIA - PULMONARY HEMORRHAGE HAS RESOLVED, BUT PT SPIKED A FEVER OVER THIS PAST WEEKEND AND HE WAS PLACED BACK ON ZOSYN AND VANCOMYCIN, THE CHEST XRAY HAS BEEN NEGATIVE, HIS WHITE COUNTS HAVE REMAINED NORMAL, AND WE HAVE A SPUTUM WHICH IS SHOWING KLEBSIELLA - THE MIDLINE TIP IS BEING CULTURED, THUS FAR THE MIDLINE TIP IS NOT GROWING ANY BACTERIA - THE VANCOMYCIN HAS BEEN STOPPED. WE WILL CONTINUE WITH SERIAL XRAYS AND SERIAL LABS PREVIOUSLY ORDERED. ATRIAL FIBRILLATION - -ASPIRIN HELD DUE TO RECURRENT PULMONARY HEMORRHAGE, ELIQUIS HAD TO BE STOPPED DUE TO RECURRENT PULMONARY HEMORRHAGES. - DEFER OTHER TREATMENT TO DR. 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 HYPERTENSION - CONTINUE WITH METOPROLOL ORALLY HYPERLIPIDEMIA - STABLE - CONTINUE TO HOLD STATIN DUE TO HIS CRITICAL ILLNESS MYOPATHY ULCERATIVE COLITIS - RESTARTED LIALDA GENERALIZED WEAKNESS -PT WAS ADMITTED TO IN REHAB FOR THERAPY FOR STRENGTHENING. EMPHYSEMA - DX ON HIS CT SCAN - HE WILL NEED CONTINUED TREATMENT OF HIS ILLNESS WITH DR. HESS AN OUTPATIENT. INSOMNIA - RESTARTED HIS HOME MELATONIN DOSING. BPH - RESTARTED TAMSULOSIN. HYPOMAGNESEMIA - IMPROVED MONITOR LABS HYPOKALEMIA - RESTART THE POTASSIUM DAILY CHECK LABS IN THE MORNING. DIARRHEA - PT HAS KNOWN ULCERATIVE COLITIS - WILL CHECK A CDIFF TO MAKE SURE THAT IS NOT CONTRIBUTING TO HIS ILLNESS AND FEVERS, STARTED ON FLAGYL, HIS CDIFF TOXINS ARE NEGATIVE AND HIS GDH ANTIGEN IS POSITIVE. PERSISTENT FEVERS DESPITE TREATMENT OF THE KLEBSIELLA - WILL GIVE A FEW DAYS OF ANTIFUNGAL THERAPY - OF DIFLUCAN 100MG DAILY X 5 DAYS. CODEY BARILLAS MD Oct 11, 2018 07:44
[2018-10-11] MEDS ORDERED: NS IV 500 ML 500 ML IV SCH (08:05)
--- NOTE | 2018-10-11 08:05 | Diagnostic Imaging Report ---
INDICATION: Dyspnea. COMPARISON: 10/10/2018. FINDINGS: Progression of diffuse bilateral interstitial and airspace opacities. No pleural effusion or pneumothorax. Stable enlargement of the cardiac silhouette. Stable left pectoral transvenous pacemaker. IMPRESSION: Imaging features are most compatible with progression of pulmonary edema. Dictated by: Dictated on workstation # [id number]
[2018-10-11] MEDS ORDERED: FUROSEMIDE 40 MG/4 ML INJ (LASIX) IVP NR (08:15)
[2018-10-11] MEDS ORDERED: diphenhydrAMINE 50 MG/ML INJ (BENADRYL) IVP PRN (08:15)
[2018-10-11] MEDS: LACTOBACILLUS ACIDOPHILUS (PROBIOTIC) CAPSULE PO SCH (08:18)
[2018-10-11] MEDS: meTOprolol TARTRATE 25 MG (LOPRESSOR) TABLET PO SCH (08:19)
[2018-10-11] MEDS ORDERED: FUROSEMIDE 20 MG (LASIX) TAB PO SCH (09:00)
[2018-10-11] MEDS ORDERED: LORATADINE (CLARITIN) 10 MG TAB PO SCH (09:00)
[2018-10-11] MEDS ORDERED: FLUTICASONE NASAL SPRAY (FLONASE) 16 GM BTL NS SCH (09:00)
[2018-10-11] MEDS ORDERED: DILTIAZEM 120 MG (CARDIZEM CD) CAP PO SCH (09:00)
[2018-10-11] MEDS ORDERED: fluCOnazole (DIFLUCAN) 100 MG TAB PO SCH (09:00)
--- NOTE | 2018-10-11 09:54 | Physical Therapy Evaluation ---
PT Evaluation-General Medical Diagnosis Admission Date Oct 10, 2018 at 17:01 Medical Diagnosis: COPD exacerbation Onset Date: Oct 10, 2018 Therapy Diagnosis Therapy Diagnosis: debilitly/weakness Height/Weight Height (Feet): 5 Height (Inches): 6.00 Weight (Pounds): 174 Weight (Ounces): 4.0 Precautions Precautions/Isolations: Fall Prevention, Standard Precautions, Pressure Ulcer Weight Bear Status Right Lower Extremity: Right Partial Weight Bearing Left Lower Extremity: Left Weight Bearing/Tolerated Referral Physician: Maryana Reason for Referral: Evaluation/Treatment Medical History Pertinent Medical History: CABG, CAD, COPD, Heart Failure, HTN, SC Current History transfer to ICU secondary to pneumonia Reviewed History: Yes Social History Home: Single Level Current Living Status: Spouse Prior/Core FIM Prior Level of Function Therapy Code Descriptions/Definitions Functional Garfield Measure: 0=Not Assessed/NA 4=Minimal Assistance 1=Total Assistance 5=Supervision or Setup 2=Maximal Assistance 6=Modified Garfield 3=Moderate Assistance 7=Complete Garfield Therapy Quality Codes: 6 Independent with activity with or without an assistive device 5 Patient requires set up or clean up by helper. Patient completes activity by themselves 4 Supervision or touching assist (CGA). [place] provide cues , steadying assist 3 The helper provides less than half the effort to complete the activity 2 The helper provides more than half the effort to complete the activity 1 Dependent. The helper does all the effort to complete an activity 7 Patient refused to complete or attempt activity 9 The patient did not perform the activity before the current illness or injury 88 Not attempted due to Medical conditions or safety concerns Functional Abilities and Goals: Independent: Patient completed the activities by him/herself, with or without an assistive device, with no assistance from a helper. Needed Some Help: Patient needed partial assistance from another person to complete activities. Dependent: A helper completed the activities for the patient. Unknown: Not Applicable: Bed Mobility: 6 Transfers (B,C,W/C) (FIM): 6 Gait: 6 Indoor Mobility (Ambulation): Independent Prior Devices Use: Walker PT Evaluation-Current Subjective Patient and spouse agree to PT. Pain Numeric Pain Scale: 0-No Pain Location: No Pain Reported Objective Patient Orientation: Normal For Age Problem Solving: Fair Attachments: IV ROM/Strength ROM Lower Extremities bilateral LE WFL Strength Lower Extremities 3-/5 grossly bilaterally Integumentary/Posture Integumentary refer to nursing notes Bowel Incontinence: No Bladder Incontinence: No Posture WFL Neuromuscular (Tone, Coordination, Reflexes) grossly intact Sensory Vision: Functional Hearing: Functional Sensation Right Lower Extremit: Intact Sensation Left Lower Extremity: Intact Transfers Therapy Code Descriptions/Definitions Functional Garfield Measure: 0=Not Assessed/NA 4=Minimal Assistance 1=Total Assistance 5=Supervision or Setup 2=Maximal Assistance 6=Modified Garfield 3=Moderate Assistance 7=Complete Garfield Transfers (B, C, W/C) (FIM): 4 Scootin Rollin Supine to/from Sit: 4 patient sat EOB x 8 min minimal assist to maintain Balance Sitting Static: Fair Sitting Dynamic: Fair Assessment/Needs 78 y.o. male, will benefit from skilled PT to address functional strength and mobility to improve current LOF. Patient is severely limited in all aspects of gross motor skills. Rehab Potential: Guarded PT Relay Motorman Goals Relay Motorman Goals PT Relay Motorman Goals Time Frame: Oct 26, 2018 Transfers (B,C,W/C) (FIM): 5 Gait (FIM): 1 Gait distance (FIM): 1=up to 49 ft Distance: 45' Gait Level of Assist: 4 Gait Assistive Device: FWW PT Plan Problem List Problem List: Activity Tolerance, Functional Strength, Safety, Balance, Gait, Transfer, Bed Mobility Treatment/Plan Treatment Plan: Continue Plan of Care Treatment Plan: Bed Mobility, Education, Functional Activity Gilbert, Functional Strength, Gait, Safety, Therapeutic Exercise, Transfers Treatment Duration: Oct 26, 2018 Frequency: 6 times per week Estimated Hrs Per Day: .5 hour per day Patient and/or Family Agrees t: Yes Time/GCodes Time In: 825 Time Out: 840 Total Billed Treatment Time: 15 Total [facility] CHIDI [facility] Oct 11, 2018 09:54
[2018-10-11] MEDS: DULoxetine 20 MG (CYMBALTA) CAP PO SCH (10:25)
[2018-10-11] MEDS: DICLOFENAC 1% GEL 100 GM (VOLTAREN) TUBE TOP SCH (10:25)
--- NOTE | 2018-10-11 11:08 | Occ Therapy Progress Note ---
Therapy Progress Note Order received for OT eval and treat. RN states pt okay for therapy. Attempted evaluation at 1043. Pt in bed with spouse present. Pt declined to participate in therapy today. States he is fatigued and sore. Pt states he will be receiving blood and is going to rest today. Will continue to monitor and initiate therapy when pt able to tolerate and participate. 1, visit QUENTIN CLARKE OT Oct 11, 2018 11:08
--- NOTE | 2018-10-11 11:25 | NUR ---
Swing Bed Note: Authorization requested for swing bed for continued need for IV abx (Klebsiella Pneumonia) with continued need for Physical et Occupational therapies (Debility, Respiratory Failure) et continued need for oxygen monitoring et weaning. Pending Authorization number is [id number] et has been requested for admission for today 10/11 pending auth/denial. Await confirmation from patient [employer] Medicare Advantage PPO plan. Benefits and Coverage explored with the patients insurance and are as follows: Days 1-20 up to $20.00 per day and days 21-100 up to 172.00 per day. Patient has used 2 days and has 98 skilled days remaining. Once out of pocket max has been met then the patient will be covered 100%. Authorization was received while putting in this note the auth number is [id number]. He has been approved for 7 days with clinical information needing to be sent on 10/17/18 for any continued authorization. Clinical reviewer is Charbel Jacobo fax number [phone].
--- NOTE | 2018-10-11 12:40 | Cardiology Progress Note ---
Cardiology SOAP Progress Note Subjective: Improved shortness of breath. Objective: I&O/Vital Signs 10/11/18 10/11/18 10/11/18 10/11/18 01:00 01:00 02:00 03:00 Pulse 61 61 67 64 Resp 29 26 24 B/P (MAP) 129/74 (92) 138/66 (90) 150/77 (101) Pulse Ox 95 95 98 O2 Delivery NIV CPAP NIV CPAP NIV CPAP O2 Flow Rate 3.00 3.00 3.00 10/11/18 10/11/18 10/11/18 10/11/18 03:30 03:30 04:00 05:00 Temp 98.4 Pulse 63 72 Resp 25 21 B/P (MAP) 144/76 (98) 156/80 (105) Pulse Ox 99 99 97 97 O2 Delivery NIV CPAP NIV CPAP NIV CPAP NIV CPAP O2 Flow Rate 2.00 2.00 2.00 2.00 10/11/18 10/11/18 10/11/18 10/11/18 05:10 06:00 06:20 07:00 Pulse 81 88 Resp 25 B/P (MAP) 148/74 (98) Pulse Ox 95 O2 Delivery Nasal Cannula Nasal Cannula Nasal Cannula O2 Flow Rate 4.00 4.00 3.00 10/11/18 10/11/18 10/11/18 07:59 08:00 11:22 Pulse 79 69 Resp 21 30 B/P (MAP) 153/82 (105) 144/72 Pulse Ox 95 93 94 O2 Delivery Nasal Cannula Nasal Cannula O2 Flow Rate 3.00 3.00 10/11/18 00:00 Intake Total 340 ml Output Total 500 ml Balance -160 ml Weight (Pounds): 174 Weight (Ounces): 4.0 Weight (Calculated Kilograms): 79.686251 Constitutional: AAO x 3 Respiratory: chest is bilaterally symmetric, lungs clear to auscultation Cardiovascular: irregularly irregular, S1 and S2 Gastrointestional: No tender, No soft, No round, No distended, No pulsatile mass, No organomegaly, No guarding, No rebound, No tenderness, No hernia, No mass, No audible bowel sounds, No abnormal bowel sounds, No abdominal bruits, No spleenomegaly, No other Extremities: No normal range of motion, No non-tender, No normal inspection, No pedal edema, No calf tenderness, No normal capillary refill, No pelvis stable, No calf tenderness, No inflammation, No pedal edema, No slow capillary refill, No swelling, No other, No abrasion, No clubbing, No cyanosis, No ecchymosis, No laceration, No no lower extremity edema bilateral, No significant edema, No tenderness, No wound Neurologic/Psychiatric: no motor/sensory deficits, alert, normal mood/affect, oriented x 3 Skin: No normal color, No warm/dry, No cyanosis, No cool, No diaphoresis, No damp, No ecchymosis, No jaundice, No mottled, No pallor, No rash, No tattoos/piercings, No ulcerations, No rash on exposed areas, No ulcerations on exposed areas, No other Results/Procedures: Labs Laboratory Tests 10/10/18 19:01: White Blood Count 5.5, Red Blood Count 2.80L, Hemoglobin 8.4L, Hematocrit 25L, Mean Corpuscular Volume 89, Mean Corpuscular Hemoglobin 30, Mean Corpuscular Hemoglobin Concent 34, Red Cell Distribution Width 15.6H, Platelet Count 108L, Mean Platelet Volume 9.5, Neutrophils (%) (Auto) 72, Lymphocytes (%) (Auto) 19, Monocytes (%) (Auto) 5, Eosinophils (%) (Auto) 4, Basophils (%) (Auto) 0, Neutrophils # (Auto) 4.0, Lymphocytes # (Auto) 1.1, Monocytes # (Auto) 0.3, Eosinophils # (Auto) 0.2, Basophils # (Auto) 0.0, Sodium Level 134L, Potassium Level 3.2L, Chloride Level 103, Carbon Dioxide Level 19L, Anion Gap 12, Blood Urea Nitrogen 14, Creatinine 1.23, Estimat Glomerular Filtration Rate 57, BUN/Creatinine Ratio 11, Glucose Level 107H, Lactic Acid Level 0.92, Calcium Level 8.2L, B-Type Natriuretic Peptide 948.9H 10/10/18 20:42: Glucometer 160H 10/11/18 02:30: White Blood Count 5.6, Red Blood Count 2.82L, Hemoglobin 8.4L, Hematocrit 25L, Mean Corpuscular Volume 90, Mean Corpuscular Hemoglobin 30, Mean Corpuscular Hemoglobin Concent 33, Red Cell Distribution Width 15.8H, Platelet Count 109L, Mean Platelet Volume 9.6, Neutrophils (%) (Auto) 72, Lymphocytes (%) (Auto) 19, Monocytes (%) (Auto) 5, Eosinophils (%) (Auto) 4, Basophils (%) (Auto) 0, Neutrophils # (Auto) 4.0, Lymphocytes # (Auto) 1.0, Monocytes # (Auto) 0.3, Eosinophils # (Auto) 0.2, Basophils # (Auto) 0.0, Sodium Level 135, Potassium Level 3.9, Chloride Level 104, Carbon Dioxide Level 19L, Anion Gap 12, Blood Urea Nitrogen 14, Creatinine 1.25, Estimat Glomerular Filtration Rate 56, BUN/Creatinine Ratio 11, Glucose Level 192H, Calcium Level 8.3L, Phosphorus Level 3.1, Magnesium Level 1.8 10/11/18 05:49: Glucometer 164H 10/11/18 10:22: Glucometer 238H A/P: Assessment/Dx: Weakness and malaise and low grade fever and leucocytosis, systemic infection suspected, managed by Dr Saravia Relatively low bp lately necessitating d/c diltiazem and reduction in beta- sita. BP has since been better Hemoptysis and pulmonary hemorrhage necessitating discontinuation of Eliquis and aspirin in mid-August 2018; low-dose aspirin reinitiated on 10/01/18 Echo of 09/19/18: LVEF 60-65%, biatrial enlargement, mod MR, mild to mod TR, RVSP 45 mmHg 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 Cardiac cath from December 30, 2013 in which successful GAURI x 2, one to the proximal and one to the mid vessel LAD, was done. 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 Pacemaker currently in the VVIR mode, due to permanent atrial fib. The patient had a pulse generator change out on 12/18/2011. The device is functioning normally per last interrogation of September 23, 2018 (DIMITRIOS estimate 11 months) History of ulcerative colitis, being managed by Dr. Parsons and Dr. Seymour Stroke prophylaxis with Eliquis - currently being held d/t hemoptysis Sleep apnea for which he is following with Dr Mijares - Bi-pap therapy Hyperlipidemia being treated with rosuvastatin. Mild carotid arterial disease that has been followed by Dr. Mcdaniel History of cholecystectomy. Impaired fasting glucose Elevated BMI of approx 30 S/p melanoma removal from the back in 2018, followed by Dr Parsons Plan: * Complex management due to multiple comorbidities * Continue current Furosemide and supplemental K dose * Continue long-acting diltiazem - adjust dose as indicated * Monitor labs Thank you for your consultation. Please call me if you have any questions. Naren Raines MD, FACP, FACC, FSCAI, FHRS, CCDS Interventional Cardiology Cardiac Electrophysiology Vascular Medicine and Endovascular Interventions Focused Exam Lactate Level 10/10/18 19:01: Lactic Acid Level 0.92 Deepak RAINES MD Oct 11, 2018 12:40
--- NOTE | 2018-10-11 13:04 | Discharge Summary ---
Diagnosis/Chief Complaint Date of Admission Oct 10, 2018 at 17:01 Date of Discharge Discharge Date: Oct 11, 2018 Discharge Time: 13:00 Admission Diagnosis Admission Diagnosis PULMONARY HEMORRHAGE PNEUMONIA ATRIAL FIBRILLATION HYPERTENSION HYPERLIPIDEMIA ULCERATIVE COLITIS GENERALIZED WEAKNESS INSOMNIA CHRONIC ANTICOAGULATION USE BPH CRITICAL CARE MYOPATHY EMPHYSEMA HYPOMAGNESEMIA HYPOKALEMIA DIARRHEA Discharge Diagnosis PULMONARY HEMORRHAGE PNEUMONIA ATRIAL FIBRILLATION HYPERTENSION HYPERLIPIDEMIA ULCERATIVE COLITIS GENERALIZED WEAKNESS INSOMNIA CHRONIC ANTICOAGULATION USE BPH CRITICAL CARE MYOPATHY EMPHYSEMA HYPOMAGNESEMIA HYPOKALEMIA DIARRHEA ANEMIA Reason Hospital Visit PT REPORTS THAT HE WAS BROUGHT UP FROM THE INPATIENT REHAB UNIT BECAUSE HE WAS INCREASINGLY SHORT OF BREATH AND RUNNING ANOTHER FEVER. THE STAFF IN THE INPATIENT REHAB UNIT WAS IN FEAR THAT HE WOULD NOT BE STABLE OVERNIGHT AND HE WAS THUS SHIPPED UP TO THE ICU FOR FURTHER MONITORING AND SUPPO RTIVE CARE. Discharge Summary Consultations DR HESS Discharge Physical Examination Allergies: Coded Allergies: Sulfa (Sulfonamide Antibiotics) (Verified Allergy, Unknown, 08/31/18) montelukast (Unverified Adverse Reaction, Unknown, 06/08/16) Hallucinations per pt Vitals & I&Os Vital Signs Date Time Temp Pulse Resp B/P (MAP) Pulse Ox O2 Delivery O2 Flow Rate FiO2 10/11/18 12:45 74 19 96 Nasal Cannula 3.00 10/11/18 11:00 98.7 General Appearance: Alert, Oriented X3, Cooperative, No Acute Distress HEENT: Atraumatic Respiratory: Other (DECREASED AIR MOVEMENT THROUGHOUT, IMPROVED IN BASES) Cardiovascular: Other (IRREGULARLY IRREGULAR) Abdominal: Normal Bowel Sounds, Soft, No Tenderness Extremities: No Clubbing, No Cyanosis Skin: No Rashes, No Breakdown Neuro: Cranial Nerves 3-12 NL Psych/Mental Status: Mental Status NL, Mood NL Hospital Course Was the Problem List Reviewed?: Yes PULMONARY HEMORRHAGE PNEUMONIA ATRIAL FIBRILLATION HYPERTENSION HYPERLIPIDEMIA ULCERATIVE COLITIS GENERALIZED WEAKNESS INSOMNIA CHRONIC ANTICOAGULATION USE BPH CRITICAL CARE MYOPATHY EMPHYSEMA HYPOMAGNESEMIA HYPOKALEMIA DIARRHEA ANEMIA PULMONARY HEMORRHAGE WITH PNEUMONIA - PULMONARY HEMORRHAGE HAS RESOLVED, BUT PT SPIKED A FEVER OVER THIS PAST WEEKEND AND HE WAS PLACED BACK ON ZOSYN AND VANCOMYCIN, THE CHEST XRAY HAS BEEN NEGATIVE, HIS WHITE COUNTS HAVE REMAINED NORMAL, AND WE HAVE A SPUTUM WHICH IS SHOWING KLEBSIELLA - THE MIDLINE TIP IS BEING CULTURED, THUS FAR THE MIDLINE TIP IS NOT GROWING ANY BACTERIA - THE VANCOMYCIN HAS BEEN STOPPED. WE WILL CONTINUE WITH SERIAL XRAYS AND SERIAL LABS PREVIOUSLY ORDERED. ATRIAL FIBRILLATION - -ASPIRIN HELD DUE TO RECURRENT PULMONARY HEMORRHAGE, MAJO DAVID HAD TO BE STOPPED DUE TO RECURRENT PULMONARY HEMORRHAGES. - DEFER OTHER TREATMENT TO DR. 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 HYPERTENSION - CONTINUE WITH METOPROLOL ORALLY HYPERLIPIDEMIA - STABLE - CONTINUE TO HOLD STATIN DUE TO HIS CRITICAL ILLNESS MYOPATHY ULCERATIVE COLITIS - RESTARTED LIALDA GENERALIZED WEAKNESS -PT WAS ADMITTED TO INPT REHAB FOR THERAPY FOR AGATA BAIRD. EMPHYSEMA - DX ON HIS CT SCAN - HE WILL NEED CONTINUED TREATMENT OF HIS ILLNESS WITH DR. HESS AN OUTPATIENT. INSOMNIA - RESTARTED HIS HOME MELATONIN DOSING. BPH - RESTARTED TAMSULOSIN. ANEMIA - PT GIVEN 1 UNIT BLOOD TRANSFUSION TODAY. HYPOMAGNESEMIA - IMPROVED MONITOR LABS HYPOKALEMIA - RESTART THE POTASSIUM DAILY CHECK LABS IN THE MORNING. DIARRHEA - PT HAS KNOWN ULCERATIVE COLITIS - WILL CHECK A CDIFF TO MAKE SURE THAT IS NOT CONTRIBUTING TO HIS ILLNESS AND FEVERS, STARTED ON FLAGYL, HIS CDIFF TOXINS ARE NEGATIVE AND HIS GDH ANTIGEN IS POSITIVE. PERSISTENT FEVERS DESPITE TREATMENT OF THE KLEBSIELLA - WILL GIVE A FEW DAYS OF ANTIFUNGAL THERAPY - OF DIFLUCAN 100MG DAILY X 5 DAYS. DISCHARGE TODAY TO SWING BED INSTEAD OF INPT REHAB DUE TO HIS WORSENING WEAKNESS AFTER THIS MOST RECENT SET-BACK. Pending Labs Laboratory Tests 10/11/18 05:49: Glucometer 164 10/11/18 10:22: Glucometer 238 Discharge Instructions to patient/family Please see electronic discharge instructions given to patient. Discharge Medications Reviewed and agree with Discharge Medication list on patient's Discharge Instruction sheet Clinical Quality Measures DVT/VTE Risk/Contraindication: Risk Factor Score Per Nursin RFS Level Per Nursing on Admit: 4+=Very High CODEY BARILLAS MD Oct 11, 2018 13:04
--- NOTE | 2018-10-11 13:56 | NUR ---
Pt transferred to Room 431 at this time via bed. Pt accompanied by this RN and during transfer. Personal belongings with pt at time of transfer. VSS. Bedside report given to LEIDA Stephens who will assume pt care at this time.
[2018-10-11] MEDS ORDERED: LOSARTAN 25 MG (COZAAR) TAB PO SCH (18:00)
[2018-10-11] MEDS ORDERED: TAMSULOSIN 0.4 MG (FLOMAX) CAP PO SCH (18:00)
[2018-10-12] MEDS ORDERED: FUROSEMIDE 20 MG (LASIX) TAB PO SCH (06:00)
[2018-10-12] MEDS ORDERED: MESA1.2T2 PO (13:04)
--- NOTE | 2018-10-14 10:46 | Therapy Team Discharge Summary ---
Therapy Discharge Summary Discharge Recommendations Date of Discharge Oct 11, 2018 at 13:01 Speech-Language Pathology This 78 year old man was admitted to the ARU s/p respiratory issues. He was weak and was receiving therapy for strengthening prior to returning home. He was also receiving skilled ST for cognition. He became ill again and was sent to ICU on 10/10/18. He was discharged from skilled ST at that time. PT Heel Pricker Goals Heel Pricker Goals PT Heel Pricker Goals Time Frame: Oct 26, 2018 Transfers (B,C,W/C) (FIM): 5 Gait (FIM): 1 Gait distance (FIM): 1=up to 49 ft Distance: 45' Gait Level of Assist: 4 Gait Assistive Device: FWW OT Care Home Goals Heel [place] Goals 1=Demonstrate adherence to instructed precautions during ADL tasks. 2=Patient will verbalize/demonstrate understanding of assistive devices/modifications for ADL. 3=Patient will improve strength/tolerance for activity to enable patient to perform ADL's. Speech Care Home Goals Care Home Goals The patient will improve his cognitive function for safe return home. Met at 80% ARI LENZ Oct 14, 2018 10:46
--- NOTE | 2018-10-14 10:54 | Therapy Team Discharge Summary ---
Therapy Discharge Summary Discharge Recommendations Date of Discharge Oct 11, 2018 at 13:01 Therapy D/C Recommendations: 24 hr Supervision Occupational Therapy Pt. discharged to swing bed for continued care. Pt. has met some goals, but continues to require assistance with others, such as LE dressing, bathing. Will continue to monitor pt. at SWB level. Decreased Activ Tolerance, Decreased UE Strength, Dependent Transfers, Impaired Bed Mobility, Impaired Funct Balance, Impaired I ADL's, Impaired Self-Care Skills PT Nursing Home Goals Balance Wheel Arm Burnisher Goals PT Nursing Home Goals Time Frame: Oct 26, 2018 Transfers (B,C,W/C) (FIM): 5 Gait (FIM): 1 Gait distance (FIM): 1=up to 49 ft Distance: 45' Gait Level of Assist: 4 Gait Assistive Device: FWW OT Nursing Home Goals Nursing Home Goals Eating (FIM): 6 (met) Eating (QC): 6 (met) Oral Hygiene (QC): 6 (not met) Grooming(FIM): 6 (not met) Bathing(FIM): 5 (not met) Shower/Bathe Self (QC): 5 (not met) Upper Body Dressing(FIM): 5 (met) Upper Body Dressing (QC): 5 (not met) Lower Body Dressing(FIM): 5 (not met) Lower Body Dressing (QC): 5 (not met) On/Off Footwear (QC): 5 (not met) Toileting(FIM): 6 (not met) Toileting Hygiene (QC): 6 (not met) Transfers (B,C,W/C) (FIM): 6 (not met) Toilet/Commode Transfer(FIM): 6 (not met) Toilet/Commode Transfer (QC): 6 (not met) Shower Transfer(FIM): 4 (not met) 1=Demonstrate adherence to instructed precautions during ADL tasks. 2=Patient will verbalize/demonstrate understanding of assistive devices/modifications for ADL. 3=Patient will improve strength/tolerance for activity to enable patient to perform ADL's. Speech Balance Wheel Arm Burnisher Goals Balance Wheel Arm Burnisher Goals The patient will improve his cognitive function for safe return home. Met at 80% ANURAG HENRIQUEZ OT Oct 14, 2018 10:54
--- NOTE | 2018-10-16 12:03 | Physician Query Clarification ---
PQ-Further Specificity Admission/Discharge Admission Date: Oct 10, 2018 at 17:01 Discharge Date: Oct 11, 2018 at 13:01 The medical record reflects the following clinical scenario: History/Risk Factors: Klebsiella pneumonia, emphysema Clinical Findings: 10/11 CXR - Imaging features are most compatible with progression of pulmonary edema. Treatment: 40 mg IV lasix Question: Can you further specify pulmonary edema d/t IV fluids per the clinical indicators above? Please document a response in the Progress Notes or Discharge Summary. 1. acute pulmonary edema 2. chronic pulmonary edema 3. Other, with explanation of the clinical findings. 4. Clinically undetermined, no explanation for the clinical findings. PHYSICIAN RESPONSE Can you specify per above: 1 Please remember a lack of response to the above will prompt a phone page by CDI/Coding staff. In responding to this query, please exercise your independent professional judgment. The purpose of this communication is to more accurately reflect the complexity of your patients condition. The fact that a question is asked does not imply that any particular answer is desired or expected. Thank you for your timely response to this clarification. Requestors name: Roney THIS PHYSICIAN QUERY FORM IS A PERMANENT PART OF THE MEDICAL RECORD RONEY ELAINE Oct 16, 2018 12:03 JUAN HESS DO Oct 21, 2018 11:24
[2018-10-25] MEDS ORDERED: DICL100G18 TOP (10:12)
[2018-10-25] MEDS ORDERED: DILT120C94 PO (10:12)
[2018-10-25] MEDS ORDERED: LOSA50TA63 PO (10:12)
[2018-10-25] MEDS ORDERED: DOCU100C37 PO (10:12)
[2018-10-25] MEDS ORDERED: DULO20CA PO (10:12)
[2018-10-25] MEDS ORDERED: Guaifenesin/Codeine PO (10:12)
[2018-10-25] MEDS ORDERED: DIPH1TAB25 PO (10:12)
[2018-10-25] MEDS ORDERED: HYDR-3923 PO (10:12)
[2018-10-25] MEDS ORDERED: METO-333 PO (10:12)
[2018-10-25] MEDS ORDERED: ACET-77 PO (10:12)
[2018-10-25] MEDS ORDERED: SPIR25TA5 PO (10:12)
[2018-10-25] MEDS ORDERED: WARF2TAB PO (10:12)
[2018-10-25] MEDS ORDERED: PANT40TA3 PO (10:12)
[2018-10-25] MEDS ORDERED: IPRA3AMP31 INH ×2 (10:12)
[2018-10-25] MEDS ORDERED: FURO-125 PO (10:35)
== END 2018-10-11 13:01 | disposition swing bed (61) | DRG 177 ==
LOC: ICU 17:01
PROVIDERS: ADMIT Internal Medicine; ATTEND Internal Medicine
DX: J15.0 Pneumonia due to Klebsiella pneumoniae (principal); I48.91 Unspecified atrial fibrillation; J81.0 Acute pulmonary edema; I10 Essential (primary) hypertension; E78.5 Hyperlipidemia, unspecified; K51.90 Ulcerative colitis, unspecified, without complications; J43.9 Emphysema, unspecified; G47.00 Insomnia, unspecified; N40.0 Benign prostatic hyperplasia without lower urinary tract symptoms; D64.9 Anemia, unspecified; E83.42 Hypomagnesemia; E87.6 Hypokalemia; G47.33 Obstructive sleep apnea (adult) (pediatric); Z87.891 Personal history of nicotine dependence; Z95.1 Presence of aortocoronary bypass graft; Z95.5 Presence of coronary angioplasty implant and graft; Z95.0 Presence of cardiac pacemaker; I25.10 Atherosclerotic heart disease of native coronary artery without angina pectoris; F41.9 Anxiety disorder, unspecified; F32.9 Major depressive disorder, single episode, unspecified; Z85.820 Personal history of malignant melanoma of skin
CPT/HCPCS: 36415; 71045; 80048; 82962; 83605; 83735; 83880; 84100; 85025; 86850; 86900; 86901; 86920; 94640

== ENCOUNTER 2018-10-11 11:43 | Inpatient (IN) | payer MEDICARE ==
[~2018-10-11] VITALS: Ht 167.6 cm; Wt 73.1 kg
--- NOTE | 2018-10-11 11:58 | NUR ---
Swing Bed Note: Authorization requested for swing bed for continued need for IV abx (Klebsiella Pneumonia) with continued need for Physical et Occupational therapies (Debility, Respiratory Failure) et continued need for oxygen monitoring et weaning. Pending Authorization number is [id number] et has been requested for admission for today 10/11 pending auth/denial. Await confirmation from patient [employer] Advantage PPO plan. Benefits and Coverage explored with the patients insurance and are as follows: Days 1-20 up to $20.00 per day and days 21-100 up to 172.00 per day. Patient has used 2 days and has 98 skilled days remaining. Once out of pocket max has been met then the patient will be covered 100%. Authorization was received while putting in this note the auth number is [id number]. He has been approved for 7 days with clinical information needing to be sent on 10/17/18 for any continued authorization. Clinical reviewer is Charbel Jacobo fax number [phone].
[2018-10-11 12:14] VITALS: BP 121/72
[2018-10-11] MEDS ORDERED: ONDANSETRON 4 MG/2 ML (SDV) Z0FRAN IVP PRN (13:15)
[2018-10-11] MEDS ORDERED: HYDROcodone/APAP 5 MG/325 MG (LORTAB) TAB PO PRN (13:15)
[2018-10-11] MEDS ORDERED: DOCUSATE SODIUM 100 MG (COLACE) CAP PO PRN (13:15)
[2018-10-11] MEDS ORDERED: NS IV 500 ML 500 ML IV SCH (13:15)
[2018-10-11] MEDS ORDERED: CALCIUM CARBONATE 500 MG (TUMS) TAB.CHEW PO PRN (13:15)
[2018-10-11] MEDS ORDERED: FLUTICASONE NASAL SPRAY (FLONASE) 16 GM BTL NS PRN (13:15)
[2018-10-11] MEDS ORDERED: guaiFENesin/CODEINE (ROBITUSSIN AC) 10ML UDC PO PRN (13:15)
[2018-10-11] MEDS ORDERED: MELATONIN 3 MG TABLET PO PRN (13:15)
[2018-10-11] MEDS ORDERED: hydrALAZINE (APRESOLINE) 25 MG TAB PO PRN (13:15)
--- NOTE | 2018-10-11 13:23 | History & Physicial ---
History of Present Illness History of Present Illness Reason for visit/HPI PT IS A 78 Y/O MALE WHO HAS HAD A VERY PROTRACTED COURSE IN THE HOSPITAL WITH ADMISSION FOR PULMONARY HEMORRHAGE AND PNEUMONIA - THEN WAS VENTILATED FOR SEVERAL DAYS, TRANSFERRED DOWN TO 4TH FLOOR THEN TO INPATIENT REHAB FOR STRENGTHENING, STARTED TO HAVE FEVERS, THEN WAS TRANSFERRED TO THE ICU FOR THE FEVERS AND CONCERN FOR POSSIBLE RECURRENT PULMONARY HEMORRHAGE AND FEVERS WITH DIARRHEA - ALL OF WHICH HAS BEEN OVER THE COURSE OF ABOUT A MONTH. YEHUDA IS EXHAUSTED, BUT IS FEELING BETTER THAN EARLIER THIS PAST WEEK. YEHUDA REPORTS THAT HE IS MOTIVATED TO GET BETTER DESPITE HAVING EXTREME FATIGUE. Date of Admission 10/11/18 Date Seen by a Provider: Oct 11, 2018 Time Seen by a Provider: 08:00 I consulted on this patient on 10/11/18 0800 Attending Physician Codey Parsons MD Admitting Physician Codey Parsons MD Consult Allergies and Home Medications Allergies Coded Allergies: Sulfa (Sulfonamide Antibiotics) (Verified Allergy, Unknown, 08/31/18) montelukast (Unverified Adverse Reaction, Unknown, 06/08/16) Hallucinations per pt Home Medications Apixaban 5 Mg Tablet, 5 MG PO BID, (Reported) Cholecalciferol (Vitamin D3) 5,000 Unit Capsule, 5,000 UNIT PO DAILY, (Reported) Digoxin 250 Mcg Tablet, 250 MCG PO 1700, (Reported) Diltiazem HCl 180 Mg Cap.er.24h, 360 MG PO DAILY, (Reported) TAKES 2 (180MG) CAPSULES Fluticasone Propionate 16 Gm Wiley.susp, 1 SPRAY NS BID PRN for ALLERGIES, (Reported) Furosemide 40 Mg Tablet, 40 MG PO DAILY, (Reported) Gluc HCl/Csa/Chato Hy/Hyalur AC 1 Each Capsule, 1 CAP PO 1800, (Reported) Lactobacillus Combination No.4 1 Each Capsule, 1 CAP PO BID, (Reported) Loperamide HCl 2 Mg Tablet, 1 MG PO BID, (Reported) TAKES 1/2 (2MG) TABLET Loratadine 10 Mg Tablet, 10 MG PO DAILY, (Reported) Losartan Potassium 25 Mg Tablet, 25 MG PO 1800, (Reported) Magnesium 250 Mg Tablet, 250 MG PO DAILY, (Reported) Melatonin 10 Mg Tablet, 10 MG PO HS, (Reported) Mesalamine 1.2 Gm Tablet.dr, 2.4 GM PO HS, (Reported) TAKES 2 (1.2GM) TABLETS Metoprolol Tartrate 100 Mg Tablet, 100 MG PO BID, (Reported) Multivit-Min/FA/Lycopene/Lut 1 Each Tablet, 1 TAB PO HS, (Reported) Potassium Chloride 20 Meq Tab.er.prt, 20 MEQ PO DAILY, (Reported) Rosuvastatin Calcium 5 Mg Tablet, 2.5 MG PO 1800, (Reported) TAKES 1/2 (5MG) TABLET Tamsulosin HCl 0.4 Mg Cap, 0.4 MG PO 1800, (Reported) Triamcinolone Acet 15 Gm Cr, TOP BID PRN for SORES, (Reported) Patient Home Medication List Home Medication List Reviewed: Yes Past Xebaajh-Mxwivr-Obkxrb Hx Patient Social History Marrital Status: Living Status: LIVES WITH SPOUSE IN THEIR HOME IN [place] Employed/Student: retired Smoking Status: Former Smoker Former Smoker, Quit: Dec 08, 1991 Type Used: Cigarettes 2nd Hand Smoke Exposure: No Physical Abuse Screen: No Sexual Abuse: No Recent Foreign Travel: No Recent Hopitalizations: Yes Recent Infectious Disease Expo: Yes Immunizations Up To Date Pediatric: Yes Date of Pneumonia Vaccine: August 05, 2018 Date of Influenza Vaccine: Jan 08, 2017 Seasonal Allergies Seasonal Allergies: Yes Surgeries Yes (5 VESSEL CABG, PACEMAKER X2, STENTS X2, skin ca removal) Cardiac, CABG, Coronary Stent, Gallbladder, Pacemaker Respiratory Yes (BI-PAP) COPD, Pneumonia, Sleep Apnea Currently Using CPAP: No Currently Using BIPAP: Yes Cardiovascular Yes (PACER, STENTS, BYPASS) Atrial Fibrillation, Coronary Artery Disease, High Cholesterol, Hypertension Neurological No Reproductive System Hx Reproductive Disorders: No Sexually Transmitted Disease: No HIV/AIDS: No Genitourinary Yes Benign Prostatic Hyperpl Gastrointestinal Yes (ULCERATIVE COLITIS) Colitis, Chronic Diarrhea, Polyps Musculoskeletal Yes Endocrine History of Endocrine Disorders: Yes (steroid induced diabetic) HEENT History of HEENT Disorders: No Loss of Vision: Denies Hearing Impairment: Denies Cancer Yes (SKIN CANCER) Skin, Melanoma Psychosocial History of Psychiatric Problem: No Integumentary History of Skin or Integumenta: Yes (melanoma) Blood Transfusions History of Blood Disorders: No Adverse Reaction to a Blood Tr: No (N/A) Reviewed Nursing Assessment Reviewed/Agree w Nursing PMH: Yes Family Medical History Significant Family History: Heart Disease, Hypertension Family Hx: Arthritis Cardiovascular disease Kidney disease G8 BROTHER Leukemia G8 BROTHER Multiple myeloma Prostate cancer 19 FATHER Review of Systems Constitutional: No chills, No fever; malaise, weakness EENTM: No vision loss, No hoarseness, No throat pain Respiratory: cough, dyspnea on exertion, phlegm, short of breath Cardiovascular: palpitations Gastrointestinal: No abdominal pain; diarrhea Genitourinary: frequency Musculoskeletal: No back pain; muscle weakness Skin: no symptoms reported Psychiatric/Neurological: Denies Anxiety, Denies Depressed All Other Systems Reviewed Negative Unless Noted: Yes Physical Exam Vital Signs Capillary Refill : Height, Weight, BMI Height: 5'6.00" Weight: 174lbs. 4.0oz. [id number]; 33.1 BMI Method:Stated General Appearance: No Apparent Distress, WD/WN Eyes: Bilateral Eye Normal Inspection HEENT: PERRL/EOMI, TMs Normal, Normal ENT Inspection, Pharynx Normal Neck: Full Range of Motion, Supple Respiratory: Chest Non Tender, Crackles, Decreased Breath Sounds Cardiovascular: Irregularly Irregular Gastrointestinal: Normal Bowel Sounds, No Pulsatile Mass, Non Tender, Soft Rectal: Deferred Extremity: Normal Capillary Refill, Normal Range of Motion, Non Tender, No Calf Tenderness, No Pedal Edema Neurologic/Psychiatric: Alert, Oriented x3, No Motor/Sensory Deficits, Normal Mood/Affect Skin: Warm/Dry Lymphatic: No Adenopathy Assessment/Plan Assessment and Plan PULMONARY HEMORRHAGE KELBSIELLA PNEUMONIA ATRIAL FIBRILLATION HYPERTENSION HYPERLIPIDEMIA ULCERATIVE COLITIS GENERALIZED WEAKNESS INSOMNIA CHRONIC ANTICOAGULATION USE BPH CRITICAL CARE MYOPATHY EMPHYSEMA HYPOMAGNESEMIA HYPOKALEMIA DIARRHEA ANEMIA PULMONARY HEMORRHAGE WITH KLEBSIELLA PNEUMONIA - PULMONARY HEMORRHAGE HAS RESOLVED, BUT PT SPIKED A FEVER OVER THIS PAST WEEKEND AND HE WAS PLACED BACK ON ZOSYN AND VANCOMYCIN, THE CHEST XRAY HAS BEEN NEGATIVE, HIS WHITE COUNTS HAVE REMAINED NORMAL, AND WE HAVE A SPUTUM WHICH IS SHOWING KLEBSIELLA - THE MIDLINE TIP IS BEING CULTURED, THUS FAR THE MIDLINE TIP IS NOT GROWING ANY BACTERIA - THE VANCOMYCIN HAS BEEN STOPPED. WE WILL CONTINUE WITH SERIAL XRAYS AND SERIAL LABS PREVIOUSLY ORDERED, CONTINUE WITH ZOSYN DUE TO KLEBSIELLA ATRIAL FIBRILLATION - -ASPIRIN HELD DUE TO RECURRENT PULMONARY HEMORRHAGE, ELIQUIS HAD TO BE STOPPED DUE TO RECURRENT PULMONARY HEMORRHAGES. - DEFER OTHER TREATMENT TO DR. 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 HYPERTENSION - CONTINUE WITH METOPROLOL ORALLY HYPERLIPIDEMIA - STABLE - CONTINUE TO HOLD STATIN DUE TO HIS CRITICAL ILLNESS MYOPATHY ULCERATIVE COLITIS - RESTARTED LIALDA - HELD TODAY DUE TO POSSIBLE CDIFF GENERALIZED WEAKNESS -PT WAS ADMITTED TO INPT REHAB FOR THERAPY FOR STRENGTHENING. EMPHYSEMA - DX ON HIS CT SCAN - HE WILL NEED CONTINUED TREATMENT OF HIS ILLNESS WITH DR. HESS AN OUTPATIENT. INSOMNIA - RESTARTED HIS HOME MELATONIN DOSING. BPH - RESTARTED TAMSULOSIN. HYPOMAGNESEMIA - IMPROVED MONITOR LABS HYPOKALEMIA - RESTART THE POTASSIUM DAILY CHECK LABS IN THE MORNING. DIARRHEA - PT HAS KNOWN ULCERATIVE COLITIS - WILL CHECK A CDIFF TO MAKE SURE THAT IS NOT CONTRIBUTING TO HIS ILLNESS AND FEVERS, STARTED ON FLAGYL, HIS CDIFF TOXINS ARE NEGATIVE AND HIS GDH ANTIGEN IS POSITIVE. PERSISTENT FEVERS DESPITE TREATMENT OF THE KLEBSIELLA - WILL GIVE A FEW DAYS OF ANTIFUNGAL THERAPY - OF DIFLUCAN 100MG DAILY X 5 DAYS. PT ON SWING BED - WILL NEED AT LEAST ANOTHER 7 DAYS OF INPT FOR IV ANTIBIOTICS AND STRENGTHENING. Admission Diagnosis PULMONARY HEMORRHAGE KELBSIELLA PNEUMONIA ATRIAL FIBRILLATION HYPERTENSION HYPERLIPIDEMIA ULCERATIVE COLITIS GENERALIZED WEAKNESS INSOMNIA CHRONIC ANTICOAGULATION USE BPH CRITICAL CARE MYOPATHY EMPHYSEMA HYPOMAGNESEMIA HYPOKALEMIA DIARRHEA ANEMIA Admission Status: Other (Swing Bed) Clinical Quality Measures DVT/VTE Risk/Contraindication: Risk Factor Score Per Nursin CODEY PARSONS MD Oct 11, 2018 13:23
--- NOTE | 2018-10-11 13:56 | Occupational Therapy Eval ---
OT Evaluation-General/PLF Medical Diagnosis Admission Date Oct 11, 2018 at 13:12 Medical Diagnosis: Debility, Respiratory Failure Onset Date: Oct 11, 2018 Therapy Diagnosis Therapy Diagnosis: impaired ADLs and mobility Height/Weight Height (Feet): 5 Height (Inches): 6.00 Weight (Pounds): 174 Weight (Ounces): 4.0 Precautions Precautions/Isolations: Contact Isolation, Fall Prevention Weight Bear Status Weight Bearing Restriction: Weight Bearing/Tolerated Location Restriction: GAVIN FEET Referral Referral Reason: Activity Tolerance, Self Care, Evaluation/Treatment, Strengthening/ROM Medical History Pertinent Medical History: CABG, CAD, COPD, Heart Failure, HTN, [place] Current History per H&P: "JONA IS A 78 Y/O MALE WHO HAS HAD A VERY PROTRACTED COURSE IN THE HOSPITAL WITH ADMISSION FOR PULMONARY HEMORRHAGE AND PNEUMONIA - THEN WAS VENTILATED FOR SEVERAL DAYS, TRANSFERRED DOWN TO 4TH FLOOR THEN TO INPATIENT REHAB FOR STRENGTHENING, STARTED TO HAVE FEVERS, THEN WAS TRANSFERRED TO THE ICU FOR THE FEVERS AND CONCERN FOR POSSIBLE RECURRENT PULMONARY HEMORRHAGE AND FEVERS WITH DIARRHEA - ALL OF WHICH HAS BEEN OVER THE COURSE OF ABOUT A MONTH. YEHUDA IS EXHAUSTED, BUT IS FEELING BETTER THAN EARLIER THIS PAST WEEK. YEHUDA REPORTS THAT HE IS MOTIVATED TO GET BETTER DESPITE HAVING EXTREME FATIGUE." Reviewed History: Yes Social History Home: Single Level Current Living Status: Significant Other Entry Into Home: Stairs With Railing Steps Into Home: 1 ADL-Prior Level of Function Therapy Code Descriptions/Definitions Functional [place] Measure: 0=Not Assessed/NA 4=Minimal Assistance 1=Total Assistance 5=Supervision or Setup 2=Maximal Assistance 6=Modified [place] 3=Moderate Assistance 7=Complete [place] Therapy Quality Codes: 6 Independent with activity with or without an assistive device 5 Patient requires set up or clean up by helper. Patient completes activity by themselves 4 Supervision or touching assist (CGA). [place] provide cues , steadying assist 3 The helper provides less than half the effort to complete the activity 2 The helper provides more than half the effort to complete the activity 1 Dependent. The helper does all the effort to complete an activity 7 Patient refused to complete or attempt activity 9 The patient did not perform the activity before the current illness or injury 88 Not attempted due to Medical conditions or safety concerns Functional Abilities and Goals: Independent: Patient completed the activities by him/herself, with or without an assistive device, with no assistance from a helper. Needed Some Help: Patient needed partial assistance from another person to complete activities. Dependent: A helper completed the activities for the patient. Unknown: Not Applicable: ADL PLOF Comments pt independent with all ADLs and functional transfer September 14, 2018. pt was since was readmitted to hospital then d/c to inpt rehab. while at inpt rehab was was admitted to [facility] on 10/10/18. pt then transferred to swing bed status, Self Care: Independent Functional Cognition: Independent DME/Equipment: Bath Chair, Tub/Shower Drive Self: Yes OT Current Status Subjective pt laying in bed upon OT arrival in no apparent distress. pt agreed to OT evaluation/ treatment session. pt spouse present during session. Pain Numeric Pain Scale: 0-No Pain Mental Status/Objective Patient Orientation: Person, Place, Time, Situation Attachments: Oxygen (3L NC), Telemetry Current Glasses/Contacts: Yes Hearing Aids: No Dentures/Partials: Yes Hand Dominance: Right Upper Extremity ROM WNL Upper Extremity Coordination WFL Upper Extremity Sensation WNL Upper Extremity Strength 4-/5 MMT ADL-Treatment Grooming (FIM): 4 (wash hands, wash face) Oral Hygiene (QC): 4 Bathing Location: L Upper Leg, R Upper Leg, Chest, Abdomen Shower/Bathe Self (QC): 2 Upper Body Dressing (FIM): 1 (jacket) Upper Body Dressing (QC): 1 Lower Body Dressing (FIM): 1 (gavin socks ) Lower Body Dressing (QC): 1 On/Off Footwear (QC): 1 Toileting (FIM): 1 Toileting Hygiene (QC): 1 Transfers (B, C, W/C) (FIM): 1 (lift ) Toilet/Commode Transfer (FIM): 0 (NT secondary to safety) Shower Transfer (FIM): 0 (NT secodnary to safety) pt demo ability to perform supine to sit with MIN A and mannitan static sitting balance with MOD cuing for LE/ UE placement. while seated EOB pt perform ADLs. pt education on enerygy conservation with ADLs. (please refer to FIMs) pt then perform sit to supine with MIN A. pt laying in bed post OT session. call light within reach, all needs met. Education OT Patient Education: Energy conservation, Modified ADL techniques, Progress toward Goal/Update tx plan, Purpose of tx/functional activities, Reviewed precautions, Safety issues, Transfer techniques Teaching Recipient: Patient Teaching Methods: Demonstration, Discussion Response to Teaching: Verbalize Understanding, Return Demonstration, Reinforcement Needed OT Short Term Goals Short Term Goals Time Frame: Oct 25, 2018 Grooming(FIM): 4 Bathing(FIM): 4 Lower Body Dressing(FIM): 3 Additional Short Term Goals: 1-Demonstrate ADL Tasks, 2-Verbalize Understanding, 3-ImproveStrength/Gilbert 1=Demonstrate adherence to instructed precautions during ADL tasks. 2=Patient will verbalize/demonstrate understanding of assistive devices/modifications for ADL. 3=Patient will improve strength/tolerance for activity to enable patient to perform ADL's. OT Custodial Goals Custodial Goals Time Frame: Nov 08, 2018 Eating (FIM): 6 Eating (QC): 6 Groomin Oral Hygiene (QC): 5 Bathing(FIM): 5 Shower/Bathe Self (QC): 5 Upper Body Dressing(FIM): 5 Upper Body Dressing (QC): 5 Lower Body Dressing(FIM): 5 Lower Body Dressing (QC): 5 On/Off Footwear (QC): 5 Toileting(FIM): 5 Toileting Hygiene (QC): 5 Transfers (B,C,W/C) (FIM): 5 Toilet/Commode Transfer(FIM): 5 Toilet/Commode Transfer (QC): 5 Shower Transfer(FIM): 5 Additional Goals: 1-Demonstrate ADL Tasks, 2-Verbalize Understanding, 3- ImproveStrength/Gilbert 1=Demonstrate adherence to instructed precautions during ADL tasks. 2=Patient will verbalize/demonstrate understanding of assistive devices/modif ications for ADL. 3=Patient will improve strength/tolerance for activity to enable patient to perform ADL's. OT Education/Plan Problem List/Assessment Assessment: Decreased Activ Tolerance, Decreased Safety Aware, Decreased UE Strength, Dependent Transfers, Impaired Bed Mobility, Impaired Coordination, Impaired Funct Balance, Impaired I ADL's, Impaired Self-Care Skills pt present with functional limitations affecting areas of ADLs and functional transfers with the above mention deficits. pt would benefit from OT services to increase independence with ADLs and functional transfers. Discharge Recommendations Plan/Recommendations: Continue POC Barriers to Progress limited activity tolerance Treatment Plan/Plan of Care Treatment,Training & Education: Yes Patient would benefit from OT for education, treatment and training to promote independence in ADL's, mobility, safety and/or upper extremity function for ADL's. Plan of Care: ADL Retraining, Caregiver Training, Concurrent Therapy, Fu nctional Mobility, Group Exercise/Act as Ind, UE Funct Exercise/Act Treatment Duration: Nov 08, 2018 Frequency: 5 times per week Estimated Hrs Per Day: .25 hour per day (0.50) Agreement: Yes Rehab Potential: Guarded Time/GCodes Start Time: 13:30 Stop Time: 13:55 Billed Treatment Time EVM 10 minutes ADL 15 minutes, 1 unit PAMELA JAFFE OT Oct 11, 2018 13:56
--- NOTE | 2018-10-11 14:00 | NUR ---
ANIYEHUDA admitted to swing bed status to room 431-1, with an admitting diagnosis of SWB PNEUMONIA, on 10/11/18 from acute inpatient status. YEHUDA LAW and/or family introduced to surroundings, call light, bed controls, phone, TV, temperature control, lights, meal times, smoking policy, visitor policy, side rail policy, bathrooms, and showers. Patient rights given to patient in the handbook.. YEHUDA LAW and/or family member verbalized understanding that [facility] is not responsible for the loss or damage to any personal effects or valuables that are kept in the patients possession during their hospitalization. YEHUDA LAW and/or family verbalizes understanding of the Interdisciplinary Patient Education. Patient and/or family were informed about the Rapid Response Team and its purpose. Call light with in reach and patient demonstrates understanding of how to use. YEHUDA LAW reports no further needs at this time.
--- NOTE | 2018-10-11 14:15 | NUR ---
REPORT GIVEN FROM LEIDA DANIELSON FROM THE ICU.
--- NOTE | 2018-10-11 14:40 | NUR ---
Admission Drug Regimen Review: Date: 10/11/18 Time: 1441 Review Completed, No Issues found
[2018-10-11] MEDS: metroNIDAZOLE 500MG/100ML IVPB 100 ML IV SCH ×2 (14:49→20:56)
--- NOTE | 2018-10-11 15:01 | Physical Therapy Evaluation ---
PT Evaluation-General Medical Diagnosis Admission Date Oct 11, 2018 at 13:12 Medical Diagnosis: Debility, Respiratory Failure Onset Date: Oct 11, 2018 Therapy Diagnosis Therapy Diagnosis: generalized weakness/debility Height/Weight Height (Feet): 5 Height (Inches): 6.00 Weight (Pounds): 174 Weight (Ounces): 4.0 Precautions Precautions/Isolations: Contact Isolation, Fall Prevention Weight Bear Status Right Lower Extremity: Right Weight Bearing/Tolerated Left Lower Extremity: Left Weight Bearing/Tolerated Referral Physician: Jaqueline Reason for Referral: Evaluation/Treatment Medical History Pertinent Medical History: CABG, CAD, COPD, Heart Failure, HTN, [place] Current History SWB status Reviewed History: Yes Social History Home: Single Level Current Living Status: Significant Other Entry Into Home: Stairs With Railing PT Steps Into Home: 1 Prior/Core FIM Prior Level of Function Therapy Code Descriptions/Definitions Functional [place] Measure: 0=Not Assessed/NA 4=Minimal Assistance 1=Total Assistance 5=Supervision or Setup 2=Maximal Assistance 6=Modified [place] 3=Moderate Assistance 7=Complete [place] Therapy Quality Codes: 6 Independent with activity with or without an assistive device 5 Patient requires set up or clean up by helper. Patient completes activity by themselves 4 Supervision or touching assist (CGA). [place] provide cues , steadying assist 3 The helper provides less than half the effort to complete the activity 2 The helper provides more than half the effort to complete the activity 1 Dependent. The helper does all the effort to complete an activity 7 Patient refused to complete or attempt activity 9 The patient did not perform the activity before the current illness or injury 88 Not attempted due to Medical conditions or safety concerns Functional Abilities and Goals: Independent: Patient completed the activities by him/herself, with or without an assistive device, with no assistance from a helper. Needed Some Help: Patient needed partial assistance from another person to complete activities. Dependent: A helper completed the activities for the patient. Unknown: Not Applicable: Bed Mobility: 7 Transfers (B,C,W/C) (FIM): 7 Gait: 7 Stairs: 7 Indoor Mobility (Ambulation): Independent Stairs: Independent Prior Devices Use: None PT Evaluation-Current Subjective Patient reports fatigue. Agrees to PT. Pt/Family Goals Home JINNY Objective Patient Orientation: Normal For Age Problem Solving: Good Attachments: Oxygen ROM/Strength ROM Lower Extremities bilateral LE WFL Strenght Lower Extremities 3-/5 grossly bilateral LE Integumentary/Posture Integumentary refer to nursing notes Bowel Incontinence: No Bladder Incontinence: No Posture WFL/cervical flexion in sit Sensory Vision: Functional Hearing: Functional Hand Dominance: Right Sensation Right Lower Extremit: Impaired Sensation Left Lower Extremity: Impaired Transfers Therapy Code Descriptions/Definitions Functional [place] Measure: 0=Not Assessed/NA 4=Minimal Assistance 1=Total Assistance 5=Supervision or Setup 2=Maximal Assistance 6=Modified [place] 3=Moderate Assistance 7=Complete [place] Therapy Quality Codes: 6 Independent with activity with or without an assistive device 5 Patient requires set up or clean up by helper. Patient completes activity by themselves 4 Supervision or touching assist (CGA). [place] provide cues , steadying assist 3 The helper provides less than half the effort to complete the activity 2 The helper provides more than half the effort to complete the activity 1 Dependent. The helper does all the effort to complete an activity 7 Patient refused to complete or attempt activity 9 The patient did not perform the activity before the current illness or injury 88 Not attempted due to Medical conditions or safety concerns Transfers (B, C, W/C) (FIM): 3 Scootin Rollin Roll Left to Right (QC): 4 Supine to/from Sit: 3 Sit to Lying (QC): 3 Lying to Sitting/Side of Bed(Q: 3 Patient very fatigued and required mod assist with bed mobility and minimal assist to maintain sitting EOB x 10min Gait Does the Patient Walk?: No and Walking Goal IS indicated Balance Sitting Static: Fair Sitting Dynamic: Fair Treatment Patient sat EOB x 10min with minimal assist and performed AAROM bilateral LE 10 reps AP, QS, HS, SLR, Abd/add Assessment/Needs 78 y.o. male, will benefit from skilled PT to address functional strength and mobility to improve current LOF and to safely return to home with spouse at maximum LOF. Rehab Potential: Fair PT Short Term Goals Short Term Goals Time Frame: Oct 26, 2018 Transfers (B,C,W/C) (FIM): 4 Gait (FIM): 1 Distance (FIM): 1=up to 49 ft Gait Distance Comment: 45' Gait Level of Assist: 4 Gait Assistive Device: FWW PT Mcc Goals Mcc Goals PT Mcc Goals Time Frame: Nov 09, 2018 Transfers (B,C,W/C) (FIM): 6 Sit to Lying (QC): 6 Lying-Sitting on Side/Bed(QC): 6 Sit to Stand (QC): 6 Rollin Roll Left to Right (QC): 6 Chair/Ppx-ir-Hrsmr Xfer(QC): 6 Car Transfer (QC): 6 Does the Patient Walk: Yes Gait (FIM): 2 Gait distance (FIM): 6=023-27 ft Distance: 125' Walk 10 feet (QC): 5 Walk 10ft-Uneven Surface(QC): 5 Walk 50ft with 2 Turns (QC): 5 Gait Level of Assist: 5 Gait Assistive Device: FWW Stairs (FIM): 2 # of Steps: 4 1 Step (curb) (QC): 5 4 Steps (QC): 5 12 Steps (QC): 9 Stairs Level Of Assist: 5 Picking up an Object (QC): 5 PT Plan Problem List Problem List: Activity Tolerance, Functional Strength, Safety, Balance, Gait, Transfer, Bed Mobility Treatment/Plan Treatment Plan: Continue Plan of Care Treatment Plan: Bed Mobility, Education, Functional Activity [place], Functional Strength, Gait, Safety, Therapeutic Exercise, Transfers Treatment Duration: Nov 09, 2018 Frequency: 11 times per week Estimated Hrs Per Day: .5 hour per day Patient and/or Family Agrees t: Yes Discharge Recommendations Therapy D/C Recommendations: Home w/ Family Support, Physical Therapy Home Care Time/GCodes Time In: 1420 Time Out: 1443 Total Billed Treatment Time: 23 Total Billed Treatment 1 visit EVLowC 8 min FA 15 min CHIDI HUANG PT Oct 11, 2018 15:01
[2018-10-11] MEDS: PIPERACILLIN/TAZOBACTAM (BULK) 4.5 GM in NS (IVPB) 100 ML IV SCH ×2 (15:54→23:44)
[2018-10-11] MEDS: TAMSULOSIN 0.4 MG (FLOMAX) CAP PO SCH (17:10)
[2018-10-11] MEDS: LACTOBACILLUS ACIDOPHILUS (PROBIOTIC) CAPSULE PO SCH (17:10)
[2018-10-11 17:58] VITALS: BP 157/65
[2018-10-11] MEDS: meTOprolol TARTRATE 25 MG (LOPRESSOR) TABLET PO SCH (20:55)
[2018-10-11] MEDS: DULoxetine 20 MG (CYMBALTA) CAP PO SCH (20:55)
[2018-10-11] MEDS: traZODone 50 MG (DESYREL) TAB PO SCH (20:55)
[2018-10-11] MEDS: RT-ALBUTEROL/IPRATROPIUM 3 ML (DUONEB) VIAL INH SCH (21:08)
[2018-10-12] MEDS: diphenhydrAMINE 25 MG TAB (BENADRYL) PO PRN ×2 (00:34→20:32)
[2018-10-12 04:58] VITALS: BP 155/68
[2018-10-12] MEDS ORDERED: FUROSEMIDE 20 MG (LASIX) TAB PO SCH (06:00)
[2018-10-12] MEDS: PANTOPRAZOLE 40 MG (PROTONIX) TAB PO SCH (06:01)
[2018-10-12] MEDS: LACTOBACILLUS ACIDOPHILUS (PROBIOTIC) CAPSULE PO SCH ×2 (06:01→17:02)
[2018-10-12] MEDS: FUROSEMIDE 20 MG (LASIX) TAB PO SCH (06:01)
[2018-10-12 06:02] VITALS: BP 155/68
[2018-10-12] MEDS: metroNIDAZOLE 500MG/100ML IVPB 100 ML IV SCH ×3 (06:02→20:34)
[2018-10-12 06:09] LABS: HEMOGLOBIN 10.1 G/DL (13.3-17.7); MEAN PLATELET VOLUME 10.1 FL (7.4-10.4); RED CELL DISTRIBUTION WIDTH 15.8 % (10.0-14.5); WHITE BLOOD COUNT 5.5 10^3/uL (4.3-11.0)
[2018-10-12 06:30] LABS: ALANINE AMINOTRANSFERASE 45 U/L (0-55); ALBUMIN 2.3 GM/DL (3.2-4.5); ALKALINE PHOSPHATASE 78 U/L (40-136); BILIRUBIN,TOTAL 0.6 MG/DL (0.1-1.0); BUN/CREATININE RATIO 13; CALCIUM 8.5 MG/DL (8.5-10.1); CARBON DIOXIDE 25 MMOL/L (21-32); CHLORIDE 104 MMOL/L (98-107); CREATININE SERUM 1.07 MG/DL (0.60-1.30); GFR ESTIMATED > 60; GLUCOSE 145 MG/DL (70-105); MAGNESIUM 1.4 MG/DL (1.8-2.4); POTASSIUM 2.8 MMOL/L (3.6-5.0); SODIUM 140 MMOL/L (135-145); TOTAL PROTEIN 5.2 GM/DL (6.4-8.2)
[2018-10-12] MEDS: PIPERACILLIN/TAZOBACTAM (BULK) 4.5 GM in NS (IVPB) 100 ML IV SCH ×3 (06:53→22:49)
[2018-10-12] MEDS: RT-ALBUTEROL/IPRATROPIUM 3 ML (DUONEB) VIAL INH SCH ×2 (07:17→22:17)
[2018-10-12] MEDS: meTOprolol TARTRATE 25 MG (LOPRESSOR) TABLET PO SCH ×2 (08:16→20:32)
[2018-10-12] MEDS: DULoxetine 20 MG (CYMBALTA) CAP PO SCH ×2 (08:16→20:32)
[2018-10-12] MEDS: LORATADINE (CLARITIN) 10 MG TAB PO SCH (08:16)
[2018-10-12] MEDS: DILTIAZEM 120 MG (CARDIZEM CD) CAP PO SCH (08:16)
[2018-10-12] MEDS: fluCOnazole (DIFLUCAN) 100 MG TAB PO SCH (08:16)
[2018-10-12] MEDS: LOSARTAN 25 MG (COZAAR) TAB PO SCH (08:16)
--- NOTE | 2018-10-12 09:17 | Physical Therapy Daily Note ---
PT Daily Note-Current Subjective Patient continues to c/o fatigue. Agrees to PT. Mental Status Patient Orientation: Normal For Age Attachments: Oxygen, IV Transfers Therapy Code Descriptions/Definitions Functional [place] Measure: 0=Not Assessed/NA 4=Minimal Assistance 1=Total Assistance 5=Supervision or Setup 2=Maximal Assistance 6=Modified [place] 3=Moderate Assistance 7=Complete [place] Therapy Quality Codes: 6 Independent with activity with or without an assistive device 5 Patient requires set up or clean up by helper. Patient completes activity by themselves 4 Supervision or touching assist (CGA). [place] provide cues , steadying ass ist 3 The helper provides less than half the effort to complete the activity 2 The helper provides more than half the effort to complete the activity 1 Dependent. The helper does all the effort to complete an activity 7 Patient refused to complete or attempt activity 9 The patient did not perform the activity before the current illness or injury 88 Not attempted due to Medical conditions or safety concerns Transfers (B, C, W/C) (FIM): 1 Scootin Rollin Roll Left to Right (QC): 3 Supine to/from Sit: 3 Sit to/from Stand: 1 Sit to Lying (QC): 3 Sit to Stand (QC): 1 Chair/Ypq-ct-Xegwg Xfer(QC): 1 Bed to/from Chair: 1 sit to stand lift for transfer bed to shower chair to recliner Weight Bearing Right Lower Extremity: Right Weight Bearing/Tolerated Left Lower Extremity: Left Weight Bearing/Tolerated Exercises Supine Ex: Ankle pumps, Quad Set, Heel Slides, Straight leg raise Supine Reps: 15 (AAROM bilaterally) Seated Therapy Exercises: Long arc quads Seated Reps: 15 Assessment Patient incontinent BM during transfer. Patient sat EOB x 10 min prior. PT to increase activity as tolerated by patient. PT Short Term Goals Short Term Goals Time Frame: Oct 26, 2018 Transfers (B,C,W/C) (FIM): 4 Gait (FIM): 1 Distance (FIM): 1=up to 49 ft Gait Distance Comment: 45' Gait Level of Assist: 4 Gait Assistive Device: FWW PT Health Social Work Professor Goals Health Social Work Professor Goals PT Health Social Work Professor Goals Time Frame: Nov 09, 2018 Transfers (B,C,W/C) (FIM): 6 Sit to Lying (QC): 6 Lying-Sitting on Side/Bed(QC): 6 Sit to Stand (QC): 6 Rollin Roll Left to Right (QC): 6 Chair/Gsx-im-Wjpjf Xfer(QC): 6 Car Transfer (QC): 6 Does the Patient Walk: Yes Gait (FIM): 2 Gait distance (FIM): 5=073-80 ft Distance: 125' Walk 10 feet (QC): 5 Walk 10ft-Uneven Surface(QC): 5 Walk 50ft with 2 Turns (QC): 5 Gait Level of Assist: 5 Gait Assistive Device: FWW Stairs (FIM): 2 # of Steps: 4 1 Step (curb) (QC): 5 4 Steps (QC): 5 12 Steps (QC): 9 Stairs Level Of Assist: 5 Picking up an Object (QC): 5 PT Plan Treatment/Plan Treatment Plan: Continue Plan of Care Treatment Plan: Bed Mobility, Education, Functional Activity Gilbert, Functional Strength, Gait, Safety, Therapeutic Exercise, Transfers Treatment Duration: Nov 09, 2018 Frequency: 11 times per week Estimated Hrs Per Day: .5 hour per day Patient and/or Family Agrees t: Yes Time/GCodes Time In: 755 Time Out: 825 Total Billed Treatment Time: 30 Total Billed Treatment 1 visit EX 15 min FA 15 min CHIDI HUANG PT Oct 12, 2018 09:17
[2018-10-12] MEDS ORDERED: DIPHENOXYLATE/ATROPINE 2.5MG/0.025MG (LOMOTIL) TAB PO ONE (10:45)
[2018-10-12] MEDS ORDERED: KCL 10 MEQ TAB (MICRO K) PO ONE (10:45)
--- NOTE | 2018-10-12 10:55 | Progress Note - Hospitalist ---
Subjective HPI/CC On Admission Date Seen by Provider: Oct 12, 2018 Time Seen by Provider: 10:50 Subjective/Events-last exam Patient reporting some small volume diarrhea with fecal incontinence happen when he stood up for physical therapy denies abdominal cramping is noted no blood in the stool. Reports history of ulcerative colitis and due to his critical illness and difficult swallowing had been off of medication. He has a small amount of pinkish sputum otherwise nonpurulent this morning but no significant hemoptysis reported off anticoagulant and aspirin therapy. He denies any night sweats chills or fever. Objective Exam Vital Signs Vital Signs Date Time Temp Pulse Resp B/P (MAP) Pulse Ox O2 Delivery O2 Flow Rate FiO2 10/12/18 09:00 Nasal Cannula 3.00 10/12/18 07:17 90 10/12/18 07:00 95 10/12/18 06:02 98.0 20 155/68 (97) Capillary Refill : Less Than 3 Seconds General Appearance: No Apparent Distress, WD/WN HEENT: PERRL/EOMI, TMs Normal, Normal ENT Inspection, Pharynx Normal Neck: Full Range of Motion, Supple Respiratory: Chest Non Tender, Other (Few scattered rhonchi noted with no wheezes breath sounds are coarse good air movement) Cardiovascular: Systolic Murmur (1-2/6 noted over the aortic outflow tract no diastolic murmurs noted.), Irregularly Irregular Gastrointestinal: Normal Bowel Sounds, No Pulsatile Mass, Non Tender, Soft Extremity: Normal Capillary Refill, Normal Range of Motion, Non Tender, No Calf Tenderness, No Pedal Edema Neurologic/Psychiatric: Alert, Oriented x3 Skin: Warm/Dry Results/Procedures Lab Laboratory Tests 10/12/18 05:42 Patient resulted labs reviewed. Assessment/Plan Assessment and Plan Assess & Plan/Chief Complaint PULMONARY HEMORRHAGE WITH KLEBSIELLA PNEUMONIA improving continue antibiotics for now. ATRIAL FIBRILLATION - -ASPIRIN HELD DUE TO RECURRENT PULMONARY HEMORRHAGE, ELIQUIS HAD TO BE STOPPED DUE TO RECURRENT PULMONARY HEMORRHAGES. - DEFER OTHER TREATMENT TO DR. 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 HYPERTENSION - CONTINUE WITH METOPROLOL ORALLY HYPERLIPIDEMIA - STABLE - CONTINUE TO HOLD STATIN DUE TO HIS CRITICAL ILLNESS MYOPATHY ULCERATIVE COLITIS - molecular C. difficile studies negative will resume Lialda and give 1 dose of Lomotil considering fecal incontinence. GENERALIZED WEAKNESS -PT WAS ADMITTED TO IN REHAB FOR THERAPY FOR STRENGTHENING. EMPHYSEMA - DX ON HIS CT SCAN - HE WILL NEED CONTINUED TREATMENT OF HIS ILLNESS WITH DR. HESS AN OUTPATIENT. INSOMNIA - RESTARTED HIS HOME MELATONIN DOSING. BPH - RESTARTED TAMSULOSIN. HYPOMAGNESEMIA - magnesium back down to 1.4 will replace IV as this may be aggravating his diarrhea and is likely aggravating hypokalemia HYPOKALEMIA -replace magnesium and initiate oral potassium 10 ONCE NOW THEN TWICE A DAY MONITOR LABS DIARRHEA - PT HAS KNOWN ULCERATIVE COLITIS - WILL CHECK A CDIFF TO MAKE SURE THAT IS NOT CONTRIBUTING TO HIS ILLNESS AND FEVERS, STARTED ON FLAGYL, HIS CDIFF TOXINS ARE NEGATIVE AND HIS GDH ANTIGEN IS POSITIVE. PERSISTENT FEVERS DESPITE TREATMENT OF THE KLEBSIELLA - WILL GIVE A FEW DAYS OF ANTIFUNGAL THERAPY - OF DIFLUCAN 100MG DAILY X 5 DAYS. PT ON SWING BED - WILL NEED AT LEAST ANOTHER 7 DAYS OF INPT FOR IV ANTIBIOTICS AND STRENGTHENING. Clinical Quality Measures DVT/VTE Risk/Contraindication: Risk Factor Score Per Nursin CAMERON WILLAMS MD Oct 12, 2018 10:55
[2018-10-12] MEDS: MAGNESIUM 1 GM/100 ML IVPB 100 ML IV SCH ×2 (11:34→12:36)
[2018-10-12] MEDS: DICLOFENAC 1% GEL 100 GM (VOLTAREN) TUBE TOP SCH ×2 (11:50→13:00)
[2018-10-12] MEDS ORDERED: DICLOFENAC 1% GEL 100 GM (VOLTAREN) TUBE TOP PRN (13:00)
[2018-10-12] MEDS ORDERED: PATIENT MAY USE OWN MEDS, ALL MC SCH (13:00)
[2018-10-12] MEDS ORDERED: MESA1.2T2 PO (13:04)
[2018-10-12] MEDS ORDERED: MESALAMINE PO SCH (13:15)
--- NOTE | 2018-10-12 14:05 | NUR ---
PER DR WILLAMS: PATIENT IS NEGATIVE FOR C-DIFF. IT IS OKAY TO TAKE HIM OUT OF ISOLATION
[2018-10-12] MEDS: TAMSULOSIN 0.4 MG (FLOMAX) CAP PO SCH (17:02)
[2018-10-12] MEDS: KCL 10 MEQ TAB (MICRO K) PO SCH (17:02)
[2018-10-12 18:00] VITALS: BP 171/74
[2018-10-12] MEDS: ALPRAZolam 0.25 MG (XANAX) TAB PO PRN (20:32)
[2018-10-12] MEDS: traZODone 50 MG (DESYREL) TAB PO SCH (20:32)
[2018-10-12] MEDS: MESALAMINE PO SCH (20:33)
[2018-10-13] MEDS: metroNIDAZOLE 500MG/100ML IVPB 100 ML IV SCH ×3 (04:54→21:08)
[2018-10-13 05:11] LABS: HEMOGLOBIN 9.9 G/DL (13.3-17.7); MEAN PLATELET VOLUME 9.8 FL (7.4-10.4); RED CELL DISTRIBUTION WIDTH 15.9 % (10.0-14.5); WHITE BLOOD COUNT 5.6 10^3/uL (4.3-11.0)
[2018-10-13 05:38] LABS: ALANINE AMINOTRANSFERASE 43 U/L (0-55); ALBUMIN 2.2 GM/DL (3.2-4.5); ALKALINE PHOSPHATASE 72 U/L (40-136); BILIRUBIN,TOTAL 0.5 MG/DL (0.1-1.0); BUN/CREATININE RATIO 13; CALCIUM 8.1 MG/DL (8.5-10.1); CARBON DIOXIDE 23 MMOL/L (21-32); CHLORIDE 100 MMOL/L (98-107); CREATININE SERUM 0.95 MG/DL (0.60-1.30); GFR ESTIMATED > 60; GLUCOSE 123 MG/DL (70-105); MAGNESIUM 1.5 MG/DL (1.8-2.4); POTASSIUM 2.7 MMOL/L (3.6-5.0); SODIUM 135 MMOL/L (135-145)
[2018-10-13] MEDS: KCL 10 MEQ TAB (MICRO K) PO SCH ×2 (06:03→16:23)
[2018-10-13] MEDS: LACTOBACILLUS ACIDOPHILUS (PROBIOTIC) CAPSULE PO SCH ×2 (06:03→16:23)
[2018-10-13] MEDS: PANTOPRAZOLE 40 MG (PROTONIX) TAB PO SCH (06:07)
[2018-10-13] MEDS: PIPERACILLIN/TAZOBACTAM (BULK) 4.5 GM in NS (IVPB) 100 ML IV SCH ×3 (06:08→23:06)
[2018-10-13 06:30] VITALS: BP 164/81
[2018-10-13] MEDS: RT-ALBUTEROL/IPRATROPIUM 3 ML (DUONEB) VIAL INH SCH ×2 (06:58→18:10)
[2018-10-13] MEDS: DILTIAZEM 120 MG (CARDIZEM CD) CAP PO SCH (08:30)
[2018-10-13] MEDS: fluCOnazole (DIFLUCAN) 100 MG TAB PO SCH (08:30)
[2018-10-13] MEDS: meTOprolol TARTRATE 25 MG (LOPRESSOR) TABLET PO SCH ×2 (08:30→21:08)
[2018-10-13] MEDS: DULoxetine 20 MG (CYMBALTA) CAP PO SCH ×2 (08:30→21:08)
[2018-10-13] MEDS: LOSARTAN 25 MG (COZAAR) TAB PO SCH (08:30)
[2018-10-13] MEDS: LORATADINE (CLARITIN) 10 MG TAB PO SCH (08:30)
[2018-10-13] MEDS: POTASSIUM CL 10MEQ/50ML IVPB 50 ML IV SCH ×3 (10:08→11:53)
[2018-10-13] MEDS: MAGNESIUM 1 GM/100 ML IVPB 100 ML IV SCH ×2 (10:08→10:56)
--- NOTE | 2018-10-13 10:47 | Progress Note - Hospitalist ---
Subjective HPI/CC On Admission Date Seen by Provider: Oct 13, 2018 Time Seen by Provider: 10:39 Subjective/Events-last exam Patient denies feeling short of breath but apparently had some oxygen desaturation into the mid 80s responded to using his incentive spirometry and increasing oxygen. He was able to cough up of small amount of leakage sputum with improvement in oxygen levels back up to the low 90s. He denies shortness of breath's morning with loose sounding cough. He denied night sweats chills or fever. Nurses report one pudding-like stool without fecal incontinence and no evidence of for blood. Objective Exam Vital Signs Vital Signs Date Time Temp Pulse Resp B/P (MAP) Pulse Ox O2 Delivery O2 Flow Rate FiO2 10/13/18 09:04 Nasal Cannula 3.00 10/13/18 07:00 89 10/13/18 06:30 98.7 85 22 164/81 (108) Capillary Refill : Less Than 3 Seconds General Appearance: No Apparent Distress HEENT: PERRL/EOMI, TMs Normal, Normal ENT Inspection, Pharynx Normal Neck: Full Range of Motion, Supple Respiratory: Chest Non Tender, Other (Few scattered rhonchi noted with no wheezes breath sounds are coarse good air movement) Cardiovascular: Systolic Murmur (1-2/6 noted over the aortic outflow tract no diastolic murmurs noted.), Irregularly Irregular Gastrointestinal: Normal Bowel Sounds, No Pulsatile Mass, Non Tender, Soft Extremity: Normal Capillary Refill, Normal Range of Motion, Non Tender, No Pedal Edema Neurologic/Psychiatric: Alert, Oriented x3 Skin: Warm/Dry, Pallor Results/Procedures Lab Laboratory Tests 10/13/18 04:30 Patient resulted labs reviewed. Assessment/Plan Assessment and Plan Assess & Plan/Chief Complaint PULMONARY HEMORRHAGE WITH KLEBSIELLA PNEUMONIA improving continue antibiotics for now. Likely intermittent mucous plugging with intermittent hypoxemia continue Acapella and I-S with oxygen as needed. ATRIAL FIBRILLATION - -ASPIRIN HELD DUE TO RECURRENT PULMONARY HEMORRHAGE, ELIQUIS HAD TO BE STOPPED DUE TO RECURRENT PULMONARY HEMORRHAGES. - DEFER OTHER TREATMENT TO DR. 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 HYPERTENSION - CONTINUE WITH METOPROLOL ORALLY HYPERLIPIDEMIA - STABLE - CONTINUE TO HOLD STATIN DUE TO HIS CRITICAL ILLNESS MYOPATHY ULCERATIVE COLITIS - molecular C. difficile studies negative Lialda resumed yesterday continue daily Lomotil as the patient is used to taking Imodium once or twice a day at baseline. GENERALIZED WEAKNESS -PT WAS ADMITTED TO IN REHAB FOR THERAPY FOR STRENGTHENING. EMPHYSEMA - DX ON HIS CT SCAN - HE WILL NEED CONTINUED TREATMENT OF HIS ILLNESS WITH DR. HESS AN OUTPATIENT. INSOMNIA - RESTARTED HIS HOME MELATONIN DOSING. BPH - RESTARTED TAMSULOSIN. HYPOMAGNESEMIA - magnesium only up to 1.5 despite 2 g IV yesterday. We will repeat 2 g today. HYPOKALEMIA -aggravated by hypomagnesemia potassium slightly low or 2.7 will continue oral replacement to give an extra 30 mEq IV today in addition to 2 g IV magnesium. Clinical Quality Measures DVT/VTE Risk/Contraindication: Risk Factor Score Per Nursin CAMERON WILLAMS MD Oct 13, 2018 10:47
[2018-10-13] MEDS: DIPHENOXYLATE/ATROPINE 2.5MG/0.025MG (LOMOTIL) TAB PO PRN (10:56)
[2018-10-13] MEDS: TAMSULOSIN 0.4 MG (FLOMAX) CAP PO SCH (17:02)
[2018-10-13 17:59] VITALS: BP 159/67
[2018-10-13] MEDS: ACETAMINOPHEN 500 MG TAB (TYLENOL) PO PRN (18:28)
[2018-10-13] MEDS: traZODone 50 MG (DESYREL) TAB PO SCH (21:08)
[2018-10-13] MEDS: MESALAMINE PO SCH (21:09)
[2018-10-13 22:33] VITALS: BP 159/67
[2018-10-14] MEDS: RT-ALBUTEROL/IPRATROPIUM 3 ML (DUONEB) VIAL INH SCH ×6 (03:11→23:01)
[2018-10-14] MEDS: ALPRAZolam 0.25 MG (XANAX) TAB PO PRN (03:36)
[2018-10-14] MEDS: metroNIDAZOLE 500MG/100ML IVPB 100 ML IV SCH ×3 (05:21→21:04)
[2018-10-14 05:49] LABS: HEMOGLOBIN 9.9 G/DL (13.3-17.7); RED CELL DISTRIBUTION WIDTH 15.9 % (10.0-14.5); WHITE BLOOD COUNT 6.5 10^3/uL (4.3-11.0)
[2018-10-14 06:09] LABS: ALANINE AMINOTRANSFERASE 36 U/L (0-55); ALBUMIN 2.2 GM/DL (3.2-4.5); ALKALINE PHOSPHATASE 76 U/L (40-136); BILIRUBIN,TOTAL 0.5 MG/DL (0.1-1.0); BUN/CREATININE RATIO 15; CALCIUM 8.3 MG/DL (8.5-10.1); CARBON DIOXIDE 24 MMOL/L (21-32); CHLORIDE 100 MMOL/L (98-107); CREATININE SERUM 0.88 MG/DL (0.60-1.30); GFR ESTIMATED > 60; GLUCOSE 127 MG/DL (70-105); MAGNESIUM 1.6 MG/DL (1.8-2.4); POTASSIUM 3.3 MMOL/L (3.6-5.0); SODIUM 135 MMOL/L (135-145); TOTAL PROTEIN 5.2 GM/DL (6.4-8.2)
[2018-10-14 06:12] VITALS: BP 171/79
[2018-10-14] MEDS: PIPERACILLIN/TAZOBACTAM (BULK) 4.5 GM in NS (IVPB) 100 ML IV SCH ×3 (06:20→23:52)
[2018-10-14] MEDS: FUROSEMIDE 20 MG (LASIX) TAB PO SCH (06:20)
[2018-10-14] MEDS: PANTOPRAZOLE 40 MG (PROTONIX) TAB PO SCH (06:20)
[2018-10-14] MEDS: LACTOBACILLUS ACIDOPHILUS (PROBIOTIC) CAPSULE PO SCH ×2 (06:20→17:42)
[2018-10-14] MEDS: KCL 10 MEQ TAB (MICRO K) PO SCH ×2 (06:20→17:42)
--- NOTE | 2018-10-14 08:29 | Progress Note ---
Subjective Date Seen by a Provider: Oct 14, 2018 Time Seen by a Provider: 09:40 Subjective/Events-last exam PT IS A 78 Y/O MALE WHO IS WELL KNOWN TO ME FROM CLINIC AND THIS PROLONGED HOSPITALIZATION. HE IS CURRENTLY ON SWING BED FOR TREATMENT OF RECURRENT PNEUMONIA AND GENERALIZED WEAKNESS. TODAY HE REPORTS THAT HE JUST DOES NOT FEEL WELL. HIS FAMILY REPORT RECURRENT FEVERS AND WORSENING SHORTNESS OF BREATH OVER THE WEEKEND. HE DENIES NAUSEA, CHEST PAIN, DIZZINESS. Review of Systems General: No Chills; Fatigue, Malaise HEENT: No Head Aches Pulmonary: Dyspnea, Cough Cardiovascular: No: Chest Pain, Palpitations Gastrointestinal: No: Nausea, Abdominal Pain Genitourinary: No Dysuria Musculoskeletal: No: back pain Neurological: Weakness; No: Confusion Objective Exam Last Set of Vital Signs Vital Signs Date Time Temp Pulse Resp B/P (MAP) Pulse Ox O2 Delivery O2 Flow Rate FiO2 10/14/18 07:37 92 Vapotherm 24.00 50 10/14/18 06:12 99.1 90 25 171/79 (109) Capillary Refill : Less Than 3 Seconds I&O Intake and Output 10/14/18 00:00 Intake Total 2890 ml Output Total 950 ml Balance 1940 ml Intake Oral 2000 ml IV Total 890 ml Output Urine Total 950 ml # Bowel Movements 2 General: Alert, Oriented X3, Cooperative HEENT: Atraumatic, PERRLA Neck: Supple Lungs: Other (DECREASED AIR MOVEMENT THROUGHOUT) Abdomen: Normal Bowel Sounds, Soft Extremities: Other (MILD EDEMA BILATERAL LOWER EXTREMITIES) Skin: Other (SMALL SKIN ABRASION RIGHT MEDIAL BUTTOCK) Psych/Mental Status: Mental Status NL, Mood NL Results Lab Laboratory Tests 10/14/18 05:05: White Blood Count 6.5, Red Blood Count 3.38L, Hemoglobin 9.9L, Hematocrit 30L, Mean Corpuscular Volume 88, Mean Corpuscular Hemoglobin 29, Mean Corpuscular Hemoglobin Concent 33, Red Cell Distribution Width 15.9H, Platelet Count 229, Mean Platelet Volume 10.0, Sodium Level 135, Potassium Level 3.3L, Chloride Level 100, Carbon Dioxide Level 24, Anion Gap 11, Blood Urea Nitrogen 13, Creatinine 0.88, Estimat Glomerular Filtration Rate > 60, BUN/Creatinine Ratio 15, Glucose Level 127H, Calcium Level 8.3L, Corrected Calcium 9.7, Magnesium Level 1.6L, Total Bilirubin 0.5, Aspartate Amino Transf (AST/SGOT) 27, Alanine Aminotransferase (ALT/SGPT) 36, Alkaline Phosphatase 76, Total Protein 5.2L, Albumin 2.2L Assessment/Plan Assessment/Plan Assess & Plan/Chief Complaint PULMONARY HEMORRHAGE KLEBSIELLA PNEUMONIA ATRIAL FIBRILLATION HYPERTENSION HYPERLIPIDEMIA ULCERATIVE COLITIS GENERALIZED WEAKNESS INSOMNIA CHRONIC ANTICOAGULATION USE BPH CRITICAL CARE MYOPATHY EMPHYSEMA HYPOMAGNESEMIA HYPOKALEMIA DIARRHEA ANEMIA PULMONARY HEMORRHAGE WITH KLEBSIELLA PNEUMONIA - PULMONARY HEMORRHAGE HAS RESOLVED, BUT PT SPIKED A FEVER WHILE ON INPATIENT REHAB AND HE WAS PLACED BACK ON ZOSYN AND VANCOMYCIN AND TRANSFERRED UP TO THE ICU FOR ACUTE MONITORING, THE CHEST XRAY HAS BEEN NEGATIVE, HIS WHITE COUNTS HAVE REMAINED NORMAL, AND WE HAVE A SPUTUM WHICH IS SHOWING KLEBSIELLA - THE MIDLINE TIP WAS FOUND TO BE NEGATIVE WHEN CULTURED AND THE VANCOMYCIN WAS STOPPED. ATRIAL FIBRILLATION - -ASPIRIN HELD DUE TO RECURRENT PULMONARY HEMORRHAGE, ELIQUIS HAD TO BE STOPPED DUE TO RECURRENT PULMONARY HEMORRHAGES. 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 HYPERTENSION - CONTINUE WITH METOPROLOL ORALLY HYPERLIPIDEMIA - STABLE - CONTINUE TO HOLD STATIN DUE TO HIS CRITICAL ILLNESS MYOPATHY ULCERATIVE COLITIS - RESTARTED LIALDA - HELD TODAY DUE TO POSSIBLE CDIFF GENERALIZED WEAKNESS -PT WAS ADMITTED TO INPT REHAB FOR THERAPY FOR STRENGTHEN ING. EMPHYSEMA - DX ON HIS CT SCAN - HE WILL NEED CONTINUED TREATMENT OF HIS ILLNESS WITH DR. HESS AN OUTPATIENT. INSOMNIA - RESTARTED HIS HOME MELATONIN DOSING. BPH - RESTARTED TAMSULOSIN. HYPOMAGNESEMIA - IMPROVED MONITOR LABS HYPOKALEMIA - RESTART THE POTASSIUM DAILY CHECK LABS IN THE MORNING. DIARRHEA - PT HAS KNOWN ULCERATIVE COLITIS - WILL CHECK A CDIFF TO MAKE SURE THAT IS NOT CONTRIBUTING TO HIS ILLNESS AND FEVERS, STARTED ON FLAGYL, HIS CDIFF TOXINS ARE NEGATIVE AND HIS GDH ANTIGEN IS POSITIVE. PERSISTENT FEVERS DESPITE TREATMENT OF THE KLEBSIELLA - WILL GIVE A FEW DAYS OF ANTIFUNGAL THERAPY - OF DIFLUCAN 100MG DAILY X 5 DAYS. PT ON SWING BED - WILL NEED AT LEAST ANOTHER 7 DAYS OF INPT FOR IV ANTIBIOTICS AND STRENGTHENING. HOLDING THERAPY TODAY DUE TO SEVERE WEAKNESS AND RESPIRATORY DISTRESS WORSENING. I HAVE DISCUSSED THE CASE WITH DR. HESS - HE WILL TALK TO YEHUDA AND FAMILY ABOUT THE POSSIBILITY OF A REPEAT BRONCHOSCOPY TO LIBERATE SOME OF THE MUCUS PLUGGING WHICH IS CONTRIBUTING TO HIS DYSPNEA. REPEAT SPUTUM CULTURE TODAY. Clinical Quality Measures Admission Status Admission Dx PULMONARY HEMORRHAGE KELBSIELLA PNEUMONIA ATRIAL FIBRILLATION HYPERTENSION HYPERLIPIDEMIA ULCERATIVE COLITIS GENERALIZED WEAKNESS INSOMNIA CHRONIC ANTICOAGULATION USE BPH CRITICAL CARE MYOPATHY EMPHYSEMA HYPOMAGNESEMIA HYPOKALEMIA DIARRHEA ANEMIA DVT/VTE Risk/Contraindication: Risk Factor Score Per Nursin CODEY BARILLAS MD Oct 14, 2018 08:29
[2018-10-14] MEDS: DILTIAZEM 120 MG (CARDIZEM CD) CAP PO SCH (08:39)
[2018-10-14] MEDS: meTOprolol TARTRATE 25 MG (LOPRESSOR) TABLET PO SCH ×2 (08:39→21:02)
[2018-10-14] MEDS: DIPHENOXYLATE/ATROPINE 2.5MG/0.025MG (LOMOTIL) TAB PO SCH (08:39)
[2018-10-14] MEDS: LOSARTAN 25 MG (COZAAR) TAB PO SCH (08:39)
[2018-10-14] MEDS: fluCOnazole (DIFLUCAN) 100 MG TAB PO SCH (08:40)
[2018-10-14] MEDS: DULoxetine 20 MG (CYMBALTA) CAP PO SCH ×2 (08:40→21:02)
[2018-10-14] MEDS ORDERED: LOSARTAN 25 MG (COZAAR) TAB PO NR (10:00)
--- NOTE | 2018-10-14 10:04 | Physical Therapy Progress Note ---
Therapy Progress Note Patient is on hold per Dr. Parsons secondary to decline in medical status. PT will continue to monitor patient status. CHIDI HUANG PT Oct 14, 2018 10:04
--- NOTE | 2018-10-14 10:51 | Occ Therapy Progress Note ---
Therapy Progress Note Per physician note, pt. on hold today for therapy due to change in medical status. Will continue to monitor pt. 1050 ANURAG HENRIQUEZ OT Oct 14, 2018 10:50
--- NOTE | 2018-10-14 11:00 | NUR ---
Dr. Mijares in room to speak with patient and about plan of care. New orders received, pt placed on Bi-pap, DNR status placed.
--- NOTE | 2018-10-14 11:25 | Pulmonary Consultation ---
History of Present Illness History of Present Illness Date of Consultation 10/14/18 11:20 Time Seen by Provider: 11:20 Date of Admission History of Present Illness 78yo with prolonged hospitalization secondary to pulmonary hemorrhage, sepsis, PNA, debility currently on swing bed. Pt was discharged from rehab to ICU secondary to persistent fevers and worsening fatigue. Today Dr. Parsons calls me to request a bronchoscopy secondary to patients persistent SOB, mucous plugging, hypoxia, and cough. Allergies and Home Medications Allergies Coded Allergies: Sulfa (Sulfonamide Antibiotics) (Verified Allergy, Unknown, 08/31/18) montelukast (Unverified Adverse Reaction, Unknown, 06/08/16) Hallucinations per pt Home Medications Apixaban 5 Mg Tablet, 5 MG PO BID, (Reported) Cholecalciferol (Vitamin D3) 5,000 Unit Capsule, 5,000 UNIT PO DAILY, (Reported) Digoxin 250 Mcg Tablet, 250 MCG PO 1700, (Reported) Diltiazem HCl 180 Mg Cap.er.24h, 360 MG PO DAILY, (Reported) TAKES 2 (180MG) CAPSULES Fluticasone Propionate 16 Gm Chamberlain.susp, 1 SPRAY NS BID PRN for ALLERGIES, (Reported) Furosemide 40 Mg Tablet, 40 MG PO DAILY, (Reported) Gluc HCl/Csa/Chtao Hy/Hyalur AC 1 Each Capsule, 1 CAP PO 1800, (Reported) Lactobacillus Combination No.4 1 Each Capsule, 1 CAP PO BID, (Reported) Loperamide HCl 2 Mg Tablet, 1 MG PO BID, (Reported) TAKES 1/2 (2MG) TABLET Loratadine 10 Mg Tablet, 10 MG PO DAILY, (Reported) Losartan Potassium 25 Mg Tablet, 25 MG PO 1800, (Reported) Magnesium 250 Mg Tablet, 250 MG PO DAILY, (Reported) Melatonin 10 Mg Tablet, 10 MG PO HS, (Reported) Mesalamine 1.2 Gm Tablet.dr, 2.4 GM PO HS, (Reported) TAKES 2 (1.2GM) TABLETS Mesalamine 1.2 Gm Tablet.dr, 2 TAB PO DAILY WITH DINNER, (Reported) Metoprolol Tartrate 100 Mg Tablet, 100 MG PO BID, (Reported) Multivit-Min/FA/Lycopene/Lut 1 Each Tablet, 1 TAB PO HS, (Reported) Potassium Chloride 20 Meq Tab.er.prt, 20 MEQ PO DAILY, (Reported) Rosuvastatin Calcium 5 Mg Tablet, 2.5 MG PO 1800, (Reported) TAKES 1/2 (5MG) TABLET Tamsulosin HCl 0.4 Mg Cap, 0.4 MG PO 1800, (Reported) Triamcinolone Acet 15 Gm Cr, TOP BID PRN for SORES, (Reported) Past Hkarrmj-Snizjt-Fydsnn Hx Patient Social History Smoking Status: Former Smoker Type Used: Cigarettes Former Smoker, Quit: Dec 08, 1991 2nd Hand Smoke Exposure: No Recent Foreign Travel: No Recent Infectious Disease Expo: Yes Recent Hopitalizations: Yes Immunizations Up To Date PED Vaccines UTD: Yes Date of Pneumonia Vaccine: August 05, 2018 Date of Influenza Vaccine: Jan 08, 2017 Seasonal Allergies Seasonal Allergies: Yes Past Medical History Surgeries: Yes (5 VESSEL CABG, PACEMAKER X2, STENTS X2, skin ca removal) Cardiac, CABG, Coronary Stent, Gallbladder, Pacemaker Respiratory: Yes (BI-PAP) Pneumonia, Sleep Apnea, COPD Currently Using CPAP: No Currently Using BIPAP: Yes Cardiac: Yes (PACER, STENTS, BYPASS) Atrial Fibrillation, Coronary Artery Disease, High Cholesterol, Hypertension Neurological: No Reproductive Disorders: No Sexually Transmitted Disease: No HIV/AIDS: No Genitourinary: Yes Benign Prostatic Hyperpl Gastrointestinal: Yes (ULCERATIVE COLITIS) Colitis, Chronic Diarrhea, Polyps Musculoskeletal: Yes Endocrine: Yes (steroid induced diabetic) HEENT: No Loss of Vision: Denies Hearing Impairment: Denies Cancer: Yes (SKIN CANCER) Skin, Melanoma Psychosocial: No Integumentary: Yes (melanoma) Blood Disorders: No Adverse Reaction/Blood Tranf: No (N/A) Family Medical History Arthritis Cardiovascular disease Kidney disease G8 BROTHER Leukemia G8 BROTHER Multiple myeloma Prostate cancer 19 FATHER Heart Disease, Hypertension Review of Systems Time Seen by Provider: 12:36 Constitutional: Fever, Chills, Sweats, Weakness, Malaise, Other Eyes: No: Pain, Vision change, Conjunctivae inflammation, Eyelid inflammation, Other, Redness ENT: Nose congestion; No: Ear pain, Ear discharge, Nose pain, Nose discharge, Mouth pain, Mouth swelling, Throat pain, Throat swelling, Other Respiratory: Cough, Dry, Shortness of breath, SOB with excertion, Wheezing; No: Hemoptysis, Pleuritic Pain Cardiovascular: Palpitations, Paroxysmal Noc. Dyspnea Gastrointestinal: Diarrhea; No: Nausea, Vomiting Sepsis Event Evaluation Height, Weight, BMI Height: 5'6.00" Weight: 174lbs. 4.0oz. 79.729291tu; 33.1 BMI Method:Stated Exam Exam Vital Signs Date Time Temp Pulse Resp B/P (MAP) Pulse Ox O2 Delivery O2 Flow Rate FiO2 10/14/18 09:00 Vapotherm 10/14/18 07:37 92 Vapotherm 24.00 50 10/14/18 06:12 99.1 90 25 171/79 (109) 93 OxyMask 10/14/18 03:11 65 31 93 45.00 10/14/18 02:37 98.4 10/14/18 00:49 68 30 97 50.00 10/13/18 22:33 70 97 50 10/13/18 22:00 99.0 10/13/18 21:56 70 27 97 50.00 10/13/18 21:00 Vapotherm 10/13/18 18:28 100.1 10/13/18 18:19 85 OxyMask 5.00 10/13/18 17:59 100.1 76 24 159/67 (97) 88 OxyMask 5.00 I & O 10/14/18 07:00 Intake Total 3110 ml Output Total 1050 ml Balance 2060 ml Height & Weight Height: 5'6.00" Weight: 174lbs. 4.0oz. 79.086953gq; 33.1 BMI Method:Stated General Appearance: No Apparent Distress HEENT: PERRL/EOMI, TMs Normal, Normal ENT Inspection, Pharynx Normal Neck: Full Range of Motion, Supple Respiratory: Chest Non Tender, Other (Few scattered rhonchi noted with no wheezes breath sounds are coarse good air movement) Cardiovascular: Systolic Murmur (1-2/6 noted over the aortic outflow tract no diastolic murmurs noted.), Irregularly Irregular Extremity: Normal Capillary Refill, Normal Range of Motion, Non Tender, No P edal Edema Neurologic/Psychiatric: Alert, Oriented x3 Skin: Warm/Dry, Pallor Results Lab Laboratory Tests 10/13/18 04:30 10/14/18 05:05 Assessment/Plan Assessment/Plan Dannieiella PNA -Zosyn Mucous plugging -Will plan for bronchoscopy tomorrow AM. -PT understands risk of needing intubation s/p bronchoscopy. -Repeat CXR Hypokalemia -replace Pulmonary hemorrhage - resolved Afib Generalized weakness Pt states he does not want to go back on ventilator. He states he would not want chest compression and that he is a DNR. I explained hospice/Comfort care to patient with at bedside. I am giving him 80mg of lasix, and 125mg of solumedrol x 1 to see if this improves his breathing. IF he has no improvement he may proceed with comfort care. JUAN HESS DO Oct 14, 2018 11:25
[2018-10-14] MEDS: POTASSIUM CL 10MEQ/50ML IVPB 50 ML IV SCH ×4 (11:53→14:17)
[2018-10-14] MEDS ORDERED: FUROSEMIDE 40 MG/4 ML INJ (LASIX) IVP NR (12:00)
[2018-10-14] MEDS ORDERED: methylPREDNISolone 125 MG (Solu-MEDROL) VIAL IVP NR (12:00)
[2018-10-14 12:11] LABS: MAGNESIUM 1.4 MG/DL (1.8-2.4)
--- NOTE | 2018-10-14 13:42 | NUR ---
Follow up visit after Dr. Mijares visited with the pt and discussed DNR and options of comfort care, should the pt choose non-curative plan of care. Pt's , Jasmyne was present. Both she and the pt welcomed by presence. He took my hand and welcomed prayer after he reiterated to his that he did not want to be intubated. He then paused and told her she was the most beautiful woman in the world. They expressed appreciation for prayer and comfort provided during our visit.
--- NOTE | 2018-10-14 15:31 | Diagnostic Imaging Report ---
INDICATION: Shortness of breath EXAM: Portable chest at 2:37 PM FINDINGS: There are postop changes from CABG surgery. There is a left subclavian dual-chamber pacemaker. There are diffuse interstitial infiltrates in the lungs which are unchanged. There are no effusions or pneumothoraces. IMPRESSION: Stable chest with diffuse interstitial infiltrates. Dictated by: Dictated on workstation # [id number]
[2018-10-14] MEDS: TAMSULOSIN 0.4 MG (FLOMAX) CAP PO SCH (17:42)
[2018-10-14 18:00] VITALS: BP 133/77
[2018-10-14] MEDS: traZODone 50 MG (DESYREL) TAB PO SCH (21:02)
[2018-10-14] MEDS: MESALAMINE PO SCH (21:03)
[2018-10-15] MEDS: metroNIDAZOLE 500MG/100ML IVPB 100 ML IV SCH ×3 (04:54→21:15)
[2018-10-15 05:57] LABS: BASOPHILS % (AUTO) 0 % (0-10); EOSINOPHILS % (AUTO) 0 % (0-10); HEMATOCRIT 29 % (40-54); HEMOGLOBIN 9.7 G/DL (13.3-17.7); LYMPHOCYTES # (AUTO) 0.5 X 10^3 (1.0-4.0); LYMPHOCYTES % (AUTO) 8 % (12-44); MEAN CORPUSCULAR HEMOGLOBIN 29 PG (25-34); MEAN CORPUSCULAR HGB CONC 33 G/DL (32-36); MEAN CORPUSCULAR VOLUME 87 FL (80-99); MEAN PLATELET VOLUME 10.1 FL (7.4-10.4); MONOCYTES # (AUTO) 0.3 X 10^3 (0.0-1.0); MONOCYTES % (AUTO) 4 % (0-12); NEUTROPHILS # (AUTO) 5.8 X 10^3 (1.8-7.8); NEUTROPHILS % (AUTO) 88 % (42-75); PLATELET COUNT 267 10^3/uL (130-400); RED CELL DISTRIBUTION WIDTH 15.8 % (10.0-14.5); WHITE BLOOD COUNT 6.7 10^3/uL (4.3-11.0)
[2018-10-15] MEDS: PIPERACILLIN/TAZOBACTAM (BULK) 4.5 GM in NS (IVPB) 100 ML IV SCH ×3 (05:57→22:46)
[2018-10-15] MEDS: KCL 10 MEQ TAB (MICRO K) PO SCH ×2 (06:01→17:26)
[2018-10-15] MEDS: LACTOBACILLUS ACIDOPHILUS (PROBIOTIC) CAPSULE PO SCH ×2 (06:01→17:26)
[2018-10-15] MEDS: PANTOPRAZOLE 40 MG (PROTONIX) TAB PO SCH (06:01)
[2018-10-15 06:23] LABS: ALANINE AMINOTRANSFERASE 38 U/L (0-55); ALBUMIN 2.4 GM/DL (3.2-4.5); ALKALINE PHOSPHATASE 82 U/L (40-136); BILIRUBIN,TOTAL 0.4 MG/DL (0.1-1.0); BUN/CREATININE RATIO 18; CALCIUM 8.4 MG/DL (8.5-10.1); CARBON DIOXIDE 26 MMOL/L (21-32); CHLORIDE 100 MMOL/L (98-107); CREATININE SERUM 1.05 MG/DL (0.60-1.30); GFR ESTIMATED > 60; GLUCOSE 312 MG/DL (70-105); MAGNESIUM 1.5 MG/DL (1.8-2.4); POTASSIUM 3.1 MMOL/L (3.6-5.0); SODIUM 137 MMOL/L (135-145); TOTAL PROTEIN 5.4 GM/DL (6.4-8.2)
[2018-10-15 06:46] VITALS: BP 151/79
[2018-10-15] MEDS: RT-ALBUTEROL/IPRATROPIUM 3 ML (DUONEB) VIAL INH SCH ×5 (07:00→22:07)
[2018-10-15] MEDS ORDERED: KCL 20 MEQ TAB (K-DUR) PO ONE (07:15)
--- NOTE | 2018-10-15 07:19 | Pulmonary Progress Note ---
Subjective Time Seen by a Provider: 16:26 Subjective/Events-last exam PT is still hypoxic and dependent on Vapotherm. Sepsis Event Evaluation Height, Weight, BMI Height: 5'6.00" Weight: 174lbs. 4.0oz. 79.574380qk; 33.1 BMI Method:Stated Exam Exam Vital Signs Date Time Temp Pulse Resp B/P (MAP) Pulse Ox O2 Delivery O2 Flow Rate FiO2 10/15/18 06:46 99.8 82 21 151/79 (103) 94 Nasal Cannula 10/15/18 02:21 60 17 90 30.00 10/14/18 22:58 60 18 92 30.00 10/14/18 20:00 92 Vapotherm 30.00 10/14/18 19:10 97 Vapotherm 30.00 50 10/14/18 18:00 97.0 74 22 133/77 (95) 96 OxyMask 10/14/18 16:15 96 Vapotherm 30.00 50 10/14/18 15:38 93 Vapotherm 40.00 60 10/14/18 14:04 80 34 93 40.00 10/14/18 11:10 66 32 93 50.00 10/14/18 10:59 74 Vapotherm 24.00 50 10/14/18 09:00 Vapotherm 10/14/18 07:37 92 Vapotherm 24.00 50 I & O 10/15/18 06:59 Intake Total 1617 ml Output Total 3185 ml Balance -1568 ml Height & Weight Height: 5'6.00" Weight: 174lbs. 4.0oz. 79.312841hb; 33.1 BMI Method:Stated General Appearance: Moderate Distress HEENT: PERRL/EOMI, TMs Normal, Normal ENT Inspection, Pharynx Normal Neck: Full Range of Motion, Supple Respiratory: Chest Non Tender, Decreased Breath Sounds, Other (Few scattered rhonchi noted with no wheezes breath sounds are coarse good air movement) Cardiovascular: Systolic Murmur (1-2/6 noted over the aortic outflow tract no diastolic murmurs noted.), Irregularly Irregular Extremity: Normal Capillary Refill, Normal Range of Motion, Non Tender, No Pedal Edema Neurologic/Psychiatric: Alert, Oriented x3 Skin: Warm/Dry, Pallor Results Lab Laboratory Tests 10/14/18 05:05 10/15/18 05:40 Assessment/Plan Assessment/Plan Caleb PNA -Zosyn Mucous plugging -Cancel bronchoscopy for now. -Check stat CTA r/o PE -Repeat CXR Hypokalemia -replace Pulmonary hemorrhage - resolved Afib Generalized weakness Family at bedside patient is now ok with Short term ventilation however does not want chest compressions or CODE Blue. I explained and answered all questions at bedside with RN and RT present. I called and discussed with Dr. Parsons. Will check CTA and hold off on bronchoscopy for now. Update: CTA is positive for acute bilateral PE. discussed with Dr. Parsons will proceed with cautious hep gtt. Critical Care: Critically Ill Patient Time spent with patient (mins): 60 JUAN HESS DO Oct 15, 2018 07:19
[2018-10-15] MEDS: POTASSIUM CL 10MEQ/50ML IVPB 50 ML IV SCH ×4 (07:37→11:38)
[2018-10-15] MEDS: MAGNESIUM 1 GM/100 ML IVPB 100 ML IV SCH ×3 (07:37→10:10)
[2018-10-15 08:00] VITALS: BP 126/62
[2018-10-15] MEDS ORDERED: NS 100 ML (IVPB) BAG IV ONE (08:00)
[2018-10-15] MEDS ORDERED: HOLD METFORMIN - RECEIVED CONTRAST 20 ML VIAL IV SCH (08:00)
[2018-10-15] MEDS ORDERED: IOHEXOL 350 MG/ML 150 ML (OMNIPAQUE 350) VIAL IV ONE (08:00)
--- NOTE | 2018-10-15 08:01 | Diagnostic Imaging Report ---
INDICATION: High oxygen requirements. TECHNIQUE: Single view chest 7:31 AM. CORRELATION STUDY: 10/14/2018 FINDINGS: Patient is poststernotomy and coronary artery bypass changes. Heart size enlarged. There appears to be continued pulmonary vascular congestion and edema. Extensive mixed alveolar interstitial infiltrates throughout both lung mendoza are present greatest involving left upper lung and right lung base. Overall findings perhaps slightly improved. Left-sided pacemaker stable. IMPRESSION: 1. Extensive 5 lobe infiltrate again demonstrated. Stable to perhaps minimally improved. Unchanged cardiac enlargement. Component of vascular congestion. Dictated by: Dictated on workstation # [id number]
--- NOTE | 2018-10-15 09:22 | Progress Note ---
Subjective Date Seen by a Provider: Oct 15, 2018 Time Seen by a Provider: 09:21 Subjective/Events-last exam PT REPORTS THAT HE IS FEELING FATIGUED, STILL REALLY SHORT OF BREATH. HIS REPORTS THAT THEY HAD A FAMILY MEETING YESTERDAY - AND IF HE WAS IN NEED OF INTUBATION HE MAY CONSIDER THIS AN OPTION FOR SHORT TERM. Review of Systems General: Fatigue, Malaise HEENT: No Head Aches Pulmonary: Dyspnea, Cough Cardiovascular: No: Chest Pain, Palpitations Gastrointestinal: No: Nausea, Abdominal Pain Genitourinary: No Dysuria Neurological: Weakness; No: Confusion Objective Exam Last Set of Vital Signs Vital Signs Date Time Temp Pulse Resp B/P (MAP) Pulse Ox O2 Delivery O2 Flow Rate FiO2 10/15/18 07:00 92 Vapotherm 20.00 40 10/15/18 06:46 99.8 82 21 151/79 (103) Capillary Refill : Less Than 3 Seconds I&O Intake and Output 10/15/18 00:00 Intake Total 1687 ml Output Total 3485 ml Balance -1798 ml Intake Oral 927 ml IV Total 760 ml Output Urine Total 3485 ml # Voids 2 # Bowel Movements 2 General: Alert, Oriented X3, Cooperative, No Acute Distress HEENT: Atraumatic, PERRLA Neck: Supple Lungs: Other (DECREASED AIR MOVEMENT THROUGH BASES) Heart: Regular Rate Abdomen: Normal Bowel Sounds, Soft, No Tenderness Neuro: Cranial Nerves 3-12 NL Psych/Mental Status: Mental Status NL, Mood NL Results Lab Laboratory Tests 10/14/18 11:40: Phosphorus Level 3.0, Magnesium Level 1.4L, B-Type Natriuretic Peptide 559.7H 10/15/18 05:40: Phosphorus Level 4.0, Magnesium Level 1.5L, White Blood Count 6.7, Red Blood Count 3.38L, Hemoglobin 9.7L, Hematocrit 29L, Mean Corpuscular Volume 87, Mean Corpuscular Hemoglobin 29, Mean Corpuscular Hemoglobin Concent 33, Red Cell Distribution Width 15.8H, Platelet Count 267, Mean Platelet Volume 10.1, Neutrophils (%) (Auto) 88H, Lymphocytes (%) (Auto) 8L, Monocytes (%) (Auto) 4, Eosinophils (%) (Auto) 0, Basophils (%) (Auto) 0, Neutrophils # (Auto) 5.8, Lymphocytes # (Auto) 0.5L, Monocytes # (Auto) 0.3, Eosinophils # (Auto) 0.0, Basophils # (Auto) 0.0, Sodium Level 137, Potassium Level 3.1L, Chloride Level 100, Carbon Dioxide Level 26, Anion Gap 11, Blood Urea Nitrogen 19H, Creatinine 1.05, Estimat Glomerular Filtration Rate > 60, BUN/Creatinine Ratio 18, Glucose Level 312H, Calcium Level 8.4L, Corrected Calcium 9.7, Total Bilirubin 0.4, Aspartate Amino Transf (AST/SGOT) 19, Alanine Aminotransferase (ALT/SGPT) 38, Alkaline Phosphatase 82, Total Protein 5.4L, Albumin 2.4L Assessment/Plan Assessment/Plan Assess & Plan/Chief Complaint PULMONARY HEMORRHAGE KELBSIELLA PNEUMONIA PULMONARY EMBOLI - -RIGHT SIDED PULMONARY EDEMA ATRIAL FIBRILLATION HYPERTENSION HYPERLIPIDEMIA ULCERATIVE COLITIS GENERALIZED WEAKNESS INSOMNIA CHRONIC ANTICOAGULATION USE BPH CRITICAL CARE MYOPATHY EMPHYSEMA HYPOMAGNESEMIA HYPOKALEMIA DIARRHEA ANEMIA PULMONARY HEMORRHAGE WITH KLEBSIELLA PNEUMONIA - PULMONARY HEMORRHAGE HAS RESOLVED, BUT PT SPIKED A FEVER WHILE ON INPATIENT REHAB AND HE WAS PLACED BACK ON ZOSYN AND VANCOMYCIN AND TRANSFERRED UP TO THE ICU FOR ACUTE MONITORING, THE CHEST XRAY HAS BEEN NEGATIVE, HIS WHITE COUNTS HAVE REMAINED NORMAL, AND WE HAVE A SPUTUM WHICH IS SHOWING KLEBSIELLA - THE MIDLINE TIP WAS FOUND TO BE NEGATIVE WHEN CULTURED AND THE VANCOMYCIN WAS STOPPED. PULMONARY EMBOLI - FOUND ON CT SCAN THIS MORNING - THE PT IS STARTED ON HEPARIN DRIP - HE WILL BE VERY CLOSELY MONITORED TO SEE IF HE HAS AN RECURRENT HE MORRHAGE ON ANTICOAGULATION. ATRIAL FIBRILLATION - -ASPIRIN HELD DUE TO RECURRENT PULMONARY HEMORRHAGE, ELIQUIS HAD TO BE STOPPED DUE TO RECURRENT PULMONARY HEMORRHAGES. 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 HYPERTENSION - CONTINUE WITH METOPROLOL ORALLY HYPERLIPIDEMIA - STABLE - CONTINUE TO HOLD STATIN DUE TO HIS CRITICAL ILLNESS MYOPATHY ULCERATIVE COLITIS - RESTARTED LIALDA - HELD TODAY DUE TO POSSIBLE CDIFF GENERALIZED WEAKNESS -PT WAS ADMITTED TO INPT REHAB FOR THERAPY FOR STRENGTHENING. EMPHYSEMA - DX ON HIS CT SCAN - HE WILL NEED CONTINUED TREATMENT OF HIS ILLNESS WITH DR. HESS AN OUTPATIENT. INSOMNIA - RESTARTED HIS HOME MELATONIN DOSING. BPH - RESTARTED TAMSULOSIN. HYPOMAGNESEMIA - IMPROVED MONITOR LABS HYPOKALEMIA - RESTART THE POTASSIUM DAILY CHECK LABS IN THE MORNING. DIARRHEA - PT HAS KNOWN ULCERATIVE COLITIS -CDIFF IS NEGATIVE THERAPY WITH BED EXERCISES TODAY - HOPEFULLY TOMORROW WILL BE ABLE TO PUSH FOR INCREASE IN ACTIVITY Clinical Quality Measures Admission Status Admission Dx PULMONARY HEMORRHAGE KELBSIELLA PNEUMONIA ATRIAL FIBRILLATION HYPERTENSION HYPERLIPIDEMIA ULCERATIVE COLITIS GENERALIZED WEAKNESS INSOMNIA CHRONIC ANTICOAGULATION USE BPH CRITICAL CARE MYOPATHY EMPHYSEMA HYPOMAGNESEMIA HYPOKALEMIA DIARRHEA ANEMIA DVT/VTE Risk/Contraindication: Risk Factor Score Per Nursin CODEY BARILLAS MD Oct 15, 2018 09:22
--- NOTE | 2018-10-15 09:23 | Diagnostic Imaging Report ---
PROCEDURE: CT angiography of the chest with contrast. TECHNIQUE: Multiple contiguous axial images were obtained through the chest after uneventful bolus administration of intravenous contrast. 2D reconstructed CTA MIP acquisitions were also performed. Auto Exposure Controls were utilized during the CT exam to meet ALARA standards for radiation dose reduction. INDICATION: Pneumonia and hypoxia Findings: Comparison is 09/18/2018. There are acute pulmonary emboli involving the right lung in numerous segmental pulmonary arteries. There is no CT evidence of right heart strain. Pacemaker leads are present in the right atrium and right ventricle. There has been coronary artery bypass grafting. Severe coronary artery calcifications are present. No axillary, supraclavicular or mediastinal lymphadenopathy. Right adrenal adenoma is stable. There is moderate to severe emphysema. Areas of groundglass and septal line thickening are increased from prior exam and are concerning for pulmonary edema. Atypical infectious process is considered less likely. There are no suspicious osseous lesions. There is multilevel degenerative disc disease of the thoracic spine. Impression: 1. Moderately extensive acute pulmonary emboli in multiple segmental vessels in the right lung. 2. Worsened bilateral groundglass and interstitial opacities most likely representing moderate pulmonary edema. Critical findings were communicated to LEIDA Herrera by Dr. Upton at 920 on 10/15/2018 Dictated by: Dictated on workstation # [id number]
--- NOTE | 2018-10-15 09:27 | Diagnostic Imaging Report ---
PROCEDURE: US Venous Lower Ext Edwin. TECHNIQUE: Multiple real-time grayscale images were obtained over the lower extremities in various projections, bilaterally. Additional duplex Doppler and color Doppler images were also obtained. INDICATION: Bilateral lower extremity pain and edema. EXAMINATIONS: Both grayscale and color Doppler imaging of the deep veins of the lower extremities were performed with waveform analysis. FINDINGS: There is no intraluminal filling defect. Normal continuous flow is seen throughout the deep venous systems of both legs, and there is normal response to augmentation. The deep veins compress normally. IMPRESSION: No ultrasound evidence of deep venous thrombosis in either lower extremity. Dictated by: Dictated on workstation # [id number]
[2018-10-15] MEDS: DULoxetine 20 MG (CYMBALTA) CAP PO SCH ×2 (09:32→21:15)
[2018-10-15] MEDS: SPIRONOLACTONE 25 MG (ALDACTONE) TAB PO SCH (09:32)
[2018-10-15] MEDS: DIPHENOXYLATE/ATROPINE 2.5MG/0.025MG (LOMOTIL) TAB PO SCH (09:32)
[2018-10-15] MEDS: meTOprolol TARTRATE 25 MG (LOPRESSOR) TABLET PO SCH ×2 (09:32→21:15)
[2018-10-15] MEDS: fluCOnazole (DIFLUCAN) 100 MG TAB PO SCH (09:32)
[2018-10-15] MEDS: DILTIAZEM 120 MG (CARDIZEM CD) CAP PO SCH (09:32)
[2018-10-15] MEDS: LOSARTAN 50 MG (COZAAR) TAB PO SCH (09:33)
[2018-10-15] MEDS: FUROSEMIDE 40 MG/4 ML INJ (LASIX) IVP SCH (09:33)
--- NOTE | 2018-10-15 09:43 | NUR ---
SWINGBED NOTE: Visited with patient and his this morning. Patient feel like he is some better today but he is still on VAPOTHERM. reports that he has not had PT yet and she isn't sure that the doctor want this yet. She also mentioned that yesterday they were talking about COMFORT CARE but he is doing better and they are going to try to get him off the Vapotherm. Dr. Parsons actually came back to hospital and I spoke to her about the PT, he is definitely not ready for this as he has new findings on CTA. Will continue to follow and offer assist as needed. Patient remains on SWINGBED status with now effort to wean off Vapotherm and gains strength once able to work with PT.
[2018-10-15 10:14] LABS: HEMOGLOBIN 9.9 G/DL (13.3-17.7); MEAN PLATELET VOLUME 10.3 FL (7.4-10.4); RED CELL DISTRIBUTION WIDTH 15.7 % (10.0-14.5); WHITE BLOOD COUNT 8.1 10^3/uL (4.3-11.0)
[2018-10-15 10:25] LABS: INR 1.6 (0.8-1.4); PROTHROMBIN TIME PATIENT 19.3 SEC (12.2-14.7)
[2018-10-15] MEDS: HEParin DRIP 25000 UNIT/500ML 500 ML IV SCH (10:38)
--- NOTE | 2018-10-15 11:27 | Physical Therapy Daily Note ---
PT Daily Note-Current Subjective Patient agrees to PT. Mental Status Patient Orientation: Normal For Age Attachments: Oxygen (vapotherm), Head Catheter, IV Transfers Therapy Code Descriptions/Definitions Functional [place] Measure: 0=Not Assessed/NA 4=Minimal Assistance 1=Total Assistance 5=Supervision or Setup 2=Maximal Assistance 6=Modified [place] 3=Moderate Assistance 7=Complete [place] Therapy Quality Codes: 6 Independent with activity with or without an assistive device 5 Patient requires set up or clean up by helper. Patient completes activity by themselves 4 Supervision or touching assist (CGA). Counce provide cues , steadying as sist 3 The helper provides less than half the effort to complete the activity 2 The helper provides more than half the effort to complete the activity 1 Dependent. The helper does all the effort to complete an activity 7 Patient refused to complete or attempt activity 9 The patient did not perform the activity before the current illness or injury 88 Not attempted due to Medical conditions or safety concerns Transfers (B, C, W/C) (FIM): 2 Scootin Roll Left to Right (QC): 2 Supine to/from Sit: 2 Sit to/from Stand: 2 Sit to Lying (QC): 2 Sit to Stand (QC): 2 Chair/Itm-nf-Gdaqo Xfer(QC): 2 Bed to/from Chair: 2 patient sat EOB x 12 min SBA Weight Bearing Right Lower Extremity: Right Weight Bearing/Tolerated Left Lower Extremity: Left Weight Bearing/Tolerated Exercises Seated Therapy Exercises: Long arc quads Seated Reps: 15 Assessment Patient has just be diagnosed with bilateral PE's. Patient tolerated treatment well and is positioned in bed. PT Short Term Goals Short Term Goals Time Frame: Oct 26, 2018 Transfers (B,C,W/C) (FIM): 4 Gait (FIM): 1 Distance (FIM): 1=up to 49 ft Gait Distance Comment: 45' Gait Level of Assist: 4 Gait Assistive Device: FWW PT Polishing Machine Operator Goals Polishing Machine Operator Goals PT Snf Goals Time Frame: Nov 09, 2018 Transfers (B,C,W/C) (FIM): 6 Sit to Lying (QC): 6 Lying-Sitting on Side/Bed(QC): 6 Sit to Stand (QC): 6 Rollin Roll Left to Right (QC): 6 Chair/Jct-qj-Ajzhj Xfer(QC): 6 Car Transfer (QC): 6 Does the Patient Walk: Yes Gait (FIM): 2 Gait distance (FIM): 1=759-70 ft Distance: 125' Walk 10 feet (QC): 5 Walk 10ft-Uneven Surface(QC): 5 Walk 50ft with 2 Turns (QC): 5 Gait Level of Assist: 5 Gait Assistive Device: FWW Stairs (FIM): 2 # of Steps: 4 1 Step (curb) (QC): 5 4 Steps (QC): 5 12 Steps (QC): 9 Stairs Level Of Assist: 5 Picking up an Object (QC): 5 PT Plan Treatment/Plan Treatment Plan: Continue Plan of Care, Modify Plan, see comments (decrease to 6/wk x 1-2 wks then increase to BID/11/wk) Treatment Plan: Bed Mobility, Education, Functional Activity [place], Functional Strength, Gait, Safety, Therapeutic Exercise, Transfers Treatment Duration: Nov 09, 2018 Frequency: 11 times per week Estimated Hrs Per Day: .5 hour per day Patient and/or Family Agrees t: Yes Time/GCodes Time In: 1015 Time Out: 1030 Total Billed Treatment Time: 15 Total Billed Treatment 1 visit FA 15 min CHIDI HUANG PT Oct 15, 2018 11:27
[2018-10-15 12:00] VITALS: BP 123/60
--- NOTE | 2018-10-15 14:20 | Occupational Ther Daily Note ---
OT Current Status-Daily Note Subjective No pain reported. Pt. states that he is feeling better. Appearance Pt. in bed eating ice cream. Agrees to work with OT. Mental Status/Objective Patient Orientation: Person, Place, Time, Situation Therapy Code Descriptions/Definitions Functional [place] Measure: 0=Not Assessed/NA 4=Minimal Assistance 1=Total Assistance 5=Supervision or Setup 2=Maximal Assistance 6=Modified [place] 3=Moderate Assistance 7=Complete [place] ADL-Treatment Therapy Code Descriptions/Definitions Functional [place] Measure: 0=Not Assessed/NA 4=Minimal Assistance 1=Total Assistance 5=Supervision or Setup 2=Maximal Assistance 6=Modified [place] 3=Moderate Assistance 7=Complete [place] Therapy Quality Codes: 6 Independent with activity with or without an assistive device 5 Patient requires set up or clean up by helper. Patient completes activity by themselves 4 Supervision or touching assist (CGA). [place] provide cues , steadying assist 3 The helper provides less than half the effort to complete the activity 2 The helper provides more than half the effort to complete the activity 1 Dependent. The helper does all the effort to complete an activity 7 Patient refused to complete or attempt activity 9 The patient did not perform the activity before the current illness or inj ury 88 Not attempted due to Medical conditions or safety concerns Pt. requests to work on LE strength vs. arm strength. OT assists with this at bed level to increase LE strength for ADLs. Completed 5 bilateral LE exercises against resistance x 5 reps in all planes. Noted that left LE is weaker than right. OT placed bed in chair position and pt. worked on core strength with bringing self up into increased seated position while in bed. Pt. encouraged to sit upright with shoulders back, and to engage core. Pt. worked to his ability and eager to do well. Pt. requests to use bed alicea. OT placed bed back in supine position. Pt. rolled to left side with max assist. OT placed bed alicea under pt. Pt. left with all needs met. Nurse aide notified that pt. on bedpan. Education OT Patient Education: Correct positioning, Exercise program, Modified ADL techniques, Progress toward Goal/Update tx plan, Purpose of tx/functional activities, Reviewed precautions, Rehab process, Transfer techniques Teaching Recipient: Patient Teaching Methods: Demonstration, Discussion Response to Teaching: Verbalize Understanding, Return Demonstration OT Short Term Goals Short Term Goals Time Frame: Oct 25, 2018 Grooming(FIM): 4 Bathing(FIM): 4 Lower Body Dressing(FIM): 3 Transfers (B,C,W/C) (FIM): 4 Additional Short Term Goals: 1-Demonstrate ADL Tasks, 2-Verbalize Understanding, 3-ImproveStrength/Gilbert 1=Demonstrate adherence to instructed precautions during ADL tasks. 2=Patient will verbalize/demonstrate understanding of assistive devices/modifications for ADL. 3=Patient will improve strength/tolerance for activity to enable patient to perform ADL's. OT Lock Master Goals Lock Master Goals Time Frame: Nov 08, 2018 Eating (FIM): 6 Eating (QC): 6 Groomin Oral Hygiene (QC): 5 Bathing(FIM): 5 Shower/Bathe Self (QC): 5 Upper Body Dressing(FIM): 5 Upper Body Dressing (QC): 5 Lower Body Dressing(FIM): 5 Lower Body Dressing (QC): 5 On/Off Footwear (QC): 5 Toileting(FIM): 5 Toileting Hygiene (QC): 5 Transfers (B,C,W/C) (FIM): 5 Toilet/Commode Transfer(FIM): 5 Toilet/Commode Transfer (QC): 5 Shower Transfer(FIM): 5 Additional Goals: 1-Demonstrate ADL Tasks, 2-Verbalize Understanding, 3- ImproveStrength/Gilbert 1=Demonstrate adherence to instructed precautions during ADL tasks. 2=Patient will verbalize/demonstrate understanding of assistive devices/modifications for ADL. 3=Patient will improve strength/tolerance for activity to enable patient to perform ADL's. OT Education/Plan Problem List/Assessment Assessment: Decreased Activ Tolerance, Decreased UE Strength, Dependent Transfers, Impaired Bed Mobility, Impaired Funct Balance, Impaired I ADL's, Impaired Self-Care Skills pt present with functional limitations affecting areas of ADLs and functional transfers with the above mention deficits. pt would benefit from OT services to increase independence with ADLs and functional transfers. Discharge Recommendations Plan/Recommendations: Continue POC Therapy D/C Recommendations: 24 hr Supervision Treatment Plan/Plan of Care Treatment,Training & Education: Yes Patient would benefit from OT for education, treatment and training to promote independence in ADL's, mobility, safety and/or upper extremity function for ADL's. Plan of Care: ADL Retraining, Caregiver Training, Concurrent Therapy, Functional Mobility, Group Exercise/Act as Ind, UE Funct Exercise/Act Treatment Duration: Nov 08, 2018 Frequency: 5 times per week Estimated Hrs Per Day: .25 hour per day (0.50) Agreement: Yes Rehab Potential: Fair Time/GCodes Start Time: 13:24 Stop Time: 13:48 Total Time Billed (hr/min): 24 Billed Treatment Time 1, Ex x 10 minutes, FA x 14 minutes ANURAG HENRIQUEZ OT Oct 15, 2018 14:20
[2018-10-15 16:00] VITALS: BP 119/64
[2018-10-15] MEDS: TAMSULOSIN 0.4 MG (FLOMAX) CAP PO SCH (17:26)
[2018-10-15 17:39] LABS: ALANINE AMINOTRANSFERASE 39 U/L (0-55); ALBUMIN 2.3 GM/DL (3.2-4.5); ALKALINE PHOSPHATASE 87 U/L (40-136); BILIRUBIN,TOTAL 0.3 MG/DL (0.1-1.0); BUN/CREATININE RATIO 18; CALCIUM 7.9 MG/DL (8.5-10.1); CARBON DIOXIDE 25 MMOL/L (21-32); CHLORIDE 98 MMOL/L (98-107); CREATININE SERUM 1.09 MG/DL (0.60-1.30); GFR ESTIMATED > 60; MAGNESIUM 1.9 MG/DL (1.8-2.4); PHOSPHORUS 2.8 MG/DL (2.3-4.7); POTASSIUM 3.7 MMOL/L (3.6-5.0); SODIUM 133 MMOL/L (135-145); TOTAL PROTEIN 4.8 GM/DL (6.4-8.2)
--- NOTE | 2018-10-15 17:42 | NUR ---
DR. HESS NOTIFIED OF LABS PER HIS REQUEST.
[2018-10-15 17:44] LABS: GLUCOSE 438 MG/DL (70-105)
--- NOTE | 2018-10-15 18:03 | Diagnostic Imaging Report ---
INDICATION: Pulmonary emboli. FINDINGS: Both right and left internal jugular, subclavian and axillary veins are widely patent. Bilateral brachial, basilic, cephalic as well as radial and ulnar veins are patent. No thrombus is seen. No fluid collections are identified. IMPRESSION: No evidence of right or left upper extremity DVT. Dictated by: Dictated on workstation # [id number]
[2018-10-15] MEDS: inSUlin ASPART (NovoLOG) 1 UNIT/0.01 ML (CHARGE PER UNIT) SC SCH ×2 (18:21→21:28)
[2018-10-15 20:00] VITALS: BP 135/67
--- NOTE | 2018-10-15 20:33 | NUR ---
PTT LAB VALUE AT 94. NO CHANGE IN HEPARIN. RATE CURRENTLY AT 29 ML/HR. CHANGED PTT LAB TO DAILY AT 0500 PER PROTOCOL.
[2018-10-15] MEDS: traZODone 50 MG (DESYREL) TAB PO SCH (21:15)
[2018-10-15] MEDS: MESALAMINE PO SCH (21:16)
[2018-10-16] VITALS (7 sets, daily range): BP systolic 106–142; BP diastolic 61–75
[2018-10-16] MEDS: RT-ALBUTEROL/IPRATROPIUM 3 ML (DUONEB) VIAL INH SCH ×5 (02:27→21:50)
[2018-10-16] MEDS: HEParin DRIP 25000 UNIT/500ML 500 ML IV SCH ×2 (04:00→22:43)
[2018-10-16] MEDS: metroNIDAZOLE 500MG/100ML IVPB 100 ML IV SCH ×3 (05:17→21:54)
[2018-10-16 05:19] LABS: BASOPHILS % (AUTO) 0 % (0-10); EOSINOPHILS # (AUTO) 0.1 10^3/uL (0.0-0.3); EOSINOPHILS % (AUTO) 1 % (0-10); HEMATOCRIT 28 % (40-54); HEMOGLOBIN 9.4 G/DL (13.3-17.7); LYMPHOCYTES # (AUTO) 0.8 X 10^3 (1.0-4.0); LYMPHOCYTES % (AUTO) 9 % (12-44); MEAN CORPUSCULAR HEMOGLOBIN 29 PG (25-34); MEAN CORPUSCULAR HGB CONC 33 G/DL (32-36); MEAN CORPUSCULAR VOLUME 88 FL (80-99); MONOCYTES # (AUTO) 0.7 X 10^3 (0.0-1.0); MONOCYTES % (AUTO) 8 % (0-12); NEUTROPHILS % (AUTO) 82 % (42-75); PLATELET COUNT 324 10^3/uL (130-400); RED CELL DISTRIBUTION WIDTH 15.4 % (10.0-14.5); WHITE BLOOD COUNT 8.5 10^3/uL (4.3-11.0)
[2018-10-16 05:35] LABS: BUN/CREATININE RATIO 21; CALCIUM 8.4 MG/DL (8.5-10.1); CARBON DIOXIDE 25 MMOL/L (21-32); CHLORIDE 100 MMOL/L (98-107); CREATININE SERUM 0.89 MG/DL (0.60-1.30); GFR ESTIMATED > 60; GLUCOSE 232 MG/DL (70-105); MAGNESIUM 1.7 MG/DL (1.8-2.4); POTASSIUM 3.5 MMOL/L (3.6-5.0); SODIUM 136 MMOL/L (135-145)
[2018-10-16] MEDS: PIPERACILLIN/TAZOBACTAM (BULK) 4.5 GM in NS (IVPB) 100 ML IV SCH (06:13)
[2018-10-16] MEDS: inSUlin ASPART (NovoLOG) 1 UNIT/0.01 ML (CHARGE PER UNIT) SC SCH ×4 (06:13→21:02)
[2018-10-16] MEDS: KCL 10 MEQ TAB (MICRO K) PO SCH ×2 (06:13→17:01)
[2018-10-16] MEDS: LACTOBACILLUS ACIDOPHILUS (PROBIOTIC) CAPSULE PO SCH ×2 (06:13→17:02)
[2018-10-16] MEDS: PANTOPRAZOLE 40 MG (PROTONIX) TAB PO SCH (06:14)
--- NOTE | 2018-10-16 07:34 | Pulmonary Progress Note ---
Subjective Time Seen by a Provider: 07:33 Subjective/Events-last exam Currently on hep gtt for acute bilateral PE. No hemoptysis thus far. Sepsis Event Evaluation Height, Weight, BMI Height: 5'6.00" Weight: 174lbs. 4.0oz. 79.010179lb; 33.1 BMI Method:Stated Exam Exam Vital Signs Date Time Temp Pulse Resp B/P (MAP) Pulse Ox O2 Delivery O2 Flow Rate FiO2 10/16/18 06:52 94 High Flow N/C 5.00 10/16/18 04:47 96.3 63 25 125/71 (89) 93 Vapotherm 15.00 10/16/18 02:29 76 30 95 30.00 10/16/18 00:39 97.6 73 25 142/67 (92) 94 Vapotherm 15.00 10/15/18 22:12 75 18 95 30.00 10/15/18 20:00 97.5 68 20 135/67 (89) 90 Vapotherm 15.00 10/15/18 20:00 95 Vapotherm 15.00 10/15/18 18:41 92 Vapotherm 15.00 40 10/15/18 16:00 97.2 59 18 119/64 (82) 90 Vapotherm 15.00 10/15/18 14:14 90 Vapotherm 15.00 40 10/15/18 12:00 97.2 74 20 123/60 (81) 95 Nasal Cannula 10/15/18 10:55 92 Vapotherm 20.00 40 10/15/18 08:00 97.4 82 20 126/62 (83) 90 Nasal Cannula 10/15/18 08:00 Vapotherm 6.00 I & O 10/16/18 07:00 Intake Total 2680 ml Output Total 3100 ml Balance -420 ml Height & Weight Height: 5'6.00" Weight: 174lbs. 4.0oz. 79.278785gd; 33.1 BMI Method:Stated General Appearance: No Apparent Distress HEENT: PERRL/EOMI, TMs Normal, Normal ENT Inspection, Pharynx Normal Neck: Full Range of Motion, Supple Respiratory: Chest Non Tender, Other (Few scattered rhonchi noted with no wheezes breath sounds are coarse good air movement) Cardiovascular: Systolic Murmur (1-2/6 noted over the aortic outflow tract no diastolic murmurs noted.), Irregularly Irregular Extremity: Normal Capillary Refill, Normal Range of Motion, Non Tender, No Pedal Edema Neurologic/Psychiatric: Alert, Oriented x3 Skin: Warm/Dry, Pallor Results Lab Laboratory Tests 10/15/18 05:40 10/15/18 10:05 10/15/18 16:50 10/16/18 05:06 Assessment/Plan Assessment/Plan Acute bilateral PE -Continue heparin for now. -halfway treatment may be better with Lovenox Sub Q 1mg/kg BID -Pt developed pulmonary hemorrhage with Eliquis Kelbsiella PNA -Zosyn Hypokalemia, hypomag -replace Pulmonary hemorrhage - resolved Afib Generalized weakness Overall prognosis is poor. Pt is considering Hospice care. JUAN HESS DO Oct 16, 2018 07:34
[2018-10-16] MEDS: MAGNESIUM 1 GM/100 ML IVPB 100 ML IV SCH ×2 (08:07→08:26)
[2018-10-16] MEDS: POTASSIUM CL 10MEQ/50ML IVPB 50 ML IV SCH ×4 (08:07→10:13)
[2018-10-16] MEDS: DILTIAZEM 120 MG (CARDIZEM CD) CAP PO SCH (08:16)
[2018-10-16] MEDS: fluCOnazole (DIFLUCAN) 100 MG TAB PO SCH (08:16)
[2018-10-16] MEDS: DIPHENOXYLATE/ATROPINE 2.5MG/0.025MG (LOMOTIL) TAB PO SCH (08:16)
[2018-10-16] MEDS: DULoxetine 20 MG (CYMBALTA) CAP PO SCH ×2 (08:16→20:48)
[2018-10-16] MEDS: meTOprolol TARTRATE 25 MG (LOPRESSOR) TABLET PO SCH ×2 (08:16→20:48)
[2018-10-16] MEDS: LOSARTAN 50 MG (COZAAR) TAB PO SCH (08:16)
[2018-10-16] MEDS: SPIRONOLACTONE 25 MG (ALDACTONE) TAB PO SCH (08:16)
[2018-10-16] MEDS: FUROSEMIDE 40 MG/4 ML INJ (LASIX) IVP SCH (08:17)
--- NOTE | 2018-10-16 08:50 | Progress Note ---
Subjective Date Seen by a Provider: Oct 16, 2018 Time Seen by a Provider: 08:42 Subjective/Events-last exam PT REPORTS THAT HE IS FEELING BETTER TODAY - HE REPORTS THAT HIS SHORTNESS OF BREATH HAS IMPROVED A LITTLE. HE NOTES THAT HE IS STILL HAVING QUITE A BIT OF PRODUCTIVE SPUTUM. STAFF REPORTS THAT HE SEEMED TO HAVE A BETTER NIGHT LAST NIGHT. Review of Systems General: Fatigue, Malaise HEENT: No Head Aches, No Dysphasia, No Sore Throat Pulmonary: Dyspnea, Cough Cardiovascular: No: Chest Pain Gastrointestinal: Other (CHRONICALLY LOOSE STOOLS DUE TO ULCERATIVE COLITIS); No: Nausea, Abdominal Pain Genitourinary: No Dysuria; Other (ALEXANDER IN PLACE) Neurological: Weakness; No: Confusion Objective Exam Last Set of Vital Signs Vital Signs Date Time Temp Pulse Resp B/P (MAP) Pulse Ox O2 Delivery O2 Flow Rate FiO2 10/16/18 06:52 94 High Flow N/C 5.00 10/16/18 04:47 96.3 63 25 125/71 (89) 10/15/18 18:41 40 Capillary Refill : Less Than 3 Seconds I&O Intake and Output 10/15/18 23:59 Intake Total 2380 ml Output Total 3000 ml Balance -620 ml Intake Oral 1720 ml IV Total 660 ml Output Urine Total 3000 ml # Bowel Movements 1 General: Alert, Oriented X3, Cooperative, Mild Distress HEENT: Atraumatic, PERRLA Neck: Supple Lungs: Other (CLEAR IN UPPER LUNG LAW, DECREASED IN LEFT BASE AND RIGHT BASE) Heart: Other (IRREGULARLY IRREGULAR) Abdomen: Normal Bowel Sounds, Soft, No Tenderness Extremities: No Clubbing, No Cyanosis Neuro: Cranial Nerves 3-12 NL Psych/Mental Status: Mental Status NL, Mood NL Results Lab Laboratory Tests 10/15/18 10:05: White Blood Count 8.1, Red Blood Count 3.43L, Hemoglobin 9.9L, Hematocrit 30L, Mean Corpuscular Volume 88, Mean Corpuscular Hemoglobin 29, Mean Corpuscular Hemoglobin Concent 33, Red Cell Distribution Width 15.7H, Platelet Count 281, Mean Platelet Volume 10.3, Prothrombin Time 19.3H, INR Comment 1.6H, Activated Partial Thromboplast Time 34 10/15/18 14:18: Activated Partial Thromboplast Time 88H 10/15/18 16:50: Sodium Level 133L, Potassium Level 3.7, Chloride Level 98, Carbon Dioxide Level 25, Anion Gap 10, Blood Urea Nitrogen 20H, Creatinine 1.09, Estimat Glomerular Filtration Rate > 60, BUN/Creatinine Ratio 18, Glucose Level 438*H, Calcium Level 7.9L, Corrected Calcium 9.3, Phosphorus Level 2.8, Magnesium Level 1.9, Total Bilirubin 0.3, Aspartate Amino Transf (AST/SGOT) 16, Alanine Aminotransferase (ALT/SGPT) 39, Alkaline Phosphatase 87, Total Protein 4.8L, Albumin 2.3L 10/15/18 20:33: Activated Partial Thromboplast Time 94H 10/15/18 21:24: Glucometer 347H 10/16/18 05:06: White Blood Count 8.5, Red Blood Count 3.23L, Hemoglobin 9.4L, Hematocrit 28L, Mean Corpuscular Volume 88, Mean Corpuscular Hemoglobin 29, Mean Corpuscular Hemoglobin Concent 33, Red Cell Distribution Width 15.4H, Platelet Count 324, Mean Platelet Volume 10.0, Neutrophils (%) (Auto) 82H, Lymphocytes (%) (Auto) 9L , Monocytes (%) (Auto) 8, Eosinophils (%) (Auto) 1, Basophils (%) (Auto) 0, Neutrophils # (Auto) 7.0, Lymphocytes # (Auto) 0.8L, Monocytes # (Auto) 0.7, Eosinophils # (Auto) 0.1, Basophils # (Auto) 0.0, Activated Partial Thromboplast Time 116*H, Sodium Level 136, Potassium Level 3.5L, Chloride Level 100, Carbon Dioxide Level 25, Anion Gap 11, Blood Urea Nitrogen 19H, Creatinine 0.89, Estimat Glomerular Filtration Rate > 60, BUN/Creatinine Ratio 21, Glucose Level 232H, Calcium Level 8.4L, Phosphorus Level 3.0, Magnesium Level 1.7L Microbiology 10/14/18 Gram Stain - Final, Resulted 10/14/18 Sputum Culture - Preliminary, Resulted Usual upper respiratory evette Enterobacter aerogenes Assessment/Plan Assessment/Plan Assess & Plan/Chief Complaint PULMONARY HEMORRHAGE KLEBSIELLA PNEUMONIA ENTEROBACTER PULMONARY EMBOLI - -RIGHT SIDED PULMONARY EDEMA ATRIAL FIBRILLATION HYPERTENSION HYPERLIPIDEMIA ULCERATIVE COLITIS GENERALIZED WEAKNESS INSOMNIA CHRONIC ANTICOAGULATION USE BPH CRITICAL CARE MYOPATHY EMPHYSEMA HYPOMAGNESEMIA HYPOKALEMIA DIARRHEA ANEMIA PULMONARY HEMORRHAGE WITH KLEBSIELLA PNEUMONIA - PULMONARY HEMORRHAGE HAS RESOLVED, BUT PT SPIKED A FEVER WHILE ON INPATIENT REHAB AND HE WAS PLACED BACK ON ZOSYN AND VANCOMYCIN AND TRANSFERRED UP TO THE ICU FOR ACUTE MONITORING, THE CHEST XRAY HAS BEEN NEGATIVE, HIS WHITE COUNTS HAVE REMAINED NORMAL, AND WE HAVE A SPUTUM WHICH IS SHOWING KLEBSIELLA - THE MIDLINE TIP WAS FOUND TO BE NEGATIVE WHEN CULTURED AND THE VANCOMYCIN WAS STOPPED. PULMONARY EMBOLI - FOUND ON CT SCAN YESTERDAY MORNING - THE PT WAS STARTED ON HEPARIN DRIP - HE WILL BE VERY CLOSELY MONITORED TO SEE IF HE HAS AN RECURRENT HEMORRHAGE ON ANTICOAGULATION. WE WILL HAVE TO DISCUSS IF IT IS AN OPTION TO PUT YEHUDA ON A DIFFERENT ANTICOAGULANT ORALLY ? PRADAXA? - MAY NEED TO CONSIDER AN INFERIOR VENA-CAVA FILTER. ATRIAL FIBRILLATION - -ASPIRIN HELD DUE TO RECURRENT PULMONARY HEMORRHAGE, ELIQUIS HAD TO BE STOPPED DUE TO RECURRENT PULMONARY HEMORRHAGES. - DEFER OTHER TREATMENT TO CLIENT SERVICES ANALYST - DR. BERNAL ON FOR DR. JUNIOR - WE HAVE DISCUSSED IN THE FUTURE THE WATCHMAN DEVICE. HYPERTENSION - CONTINUE WITH METOPROLOL ORALLY HYPERLIPIDEMIA - STABLE - CONTINUE TO HOLD STATIN DUE TO HIS CRITICAL ILLNESS MYOPATHY ULCERATIVE COLITIS - RESTARTED LIALDA - HELD TODAY DUE TO POSSIBLE CDIFF GENERALIZED WEAKNESS -PT WAS ADMITTED TO INPT REHAB FOR THERAPY FOR STRENGTHENING. EMPHYSEMA - DX ON HIS CT SCAN - HE WILL NEED CONTINUED TREATMENT OF HIS ILLNESS WITH DR. HESS AN OUTPATIENT. INSOMNIA - RESTARTED HIS HOME MELATONIN DOSING. BPH - RESTARTED TAMSULOSIN. HYPOMAGNESEMIA - IMPROVED MONITOR LABS HYPOKALEMIA - RESTART THE POTASSIUM DAILY CHECK LABS IN THE MORNING. DIARRHEA - PT HAS KNOWN ULCERATIVE COLITIS - CT OF CHEST FROM 10/15/18 MORNING Impression: 1. Moderately extensive acute pulmonary emboli in multiple segmental vessels in the right lung. 2. Worsened bilateral groundglass and interstitial opacities most likely representing moderate pulmonary edema. Critical findings were communicated to LEIDA Herrera by Dr. Upton at 920 on 10/15/2018 Clinical Quality Measures Admission Status Admission Dx PULMONARY HEMORRHAGE KELBSIELLA PNEUMONIA ATRIAL FIBRILLATION HYPERTENSION HYPERLIPIDEMIA ULCERATIVE COLITIS GENERALIZED WEAKNESS INSOMNIA CHRONIC ANTICOAGULATION USE BPH CRITICAL CARE MYOPATHY EMPHYSEMA HYPOMAGNESEMIA HYPOKALEMIA DIARRHEA ANEMIA DVT/VTE Risk/Contraindication: Risk Factor Score Per Nursin CODEY BARILLAS MD Oct 16, 2018 08:50
[2018-10-16] MEDS: MEROPENEM 500 MG in WATER (STERILE) FOR INJECTION 10 ML IV SCH ×3 (10:10→21:54)
[2018-10-16] MEDS: ACETAMINOPHEN 500 MG TAB (TYLENOL) PO PRN (12:10)
--- NOTE | 2018-10-16 12:48 | Physical Therapy Daily Note ---
PT Daily Note-Current Subjective Patient in bed pre tx, agrees to PT, has no complaints of pain at rest. Patient finishing up with OT, OT states that doctor wants patient to stay in bed and just perform UE and LE exercises. Will perform LE exercises. Appearance Patient in bed post tx with nurse call, phone, tray, all needs met, multiple family in the room. Mental Status Patient Orientation: Person, Place, Situation Attachments: Oxygen, IV Transfers Therapy Code Descriptions/Definitions Functional [place] Measure: 0=Not Assessed/NA 4=Minimal Assistance 1=Total Assistance 5=Supervision or Setup 2=Maximal Assistance 6=Modified [place] 3=Moderate Assistance 7=Complete [place] Therapy Quality Codes: 6 Independent with activity with or without an assistive device 5 Patient requires set up or clean up by helper. Patient completes activity by themselves 4 Supervision or touching assist (CGA). [place] provide cues , steadying assist 3 The helper provides less than half the effort to complete the activity 2 The helper provides more than half the effort to complete the activity 1 Dependent. The helper does all the effort to complete an activity 7 Patient refused to complete or attempt activity 9 The patient did not perform the activity before the current illness or injury 88 Not attempted due to Medical conditions or safety concerns Weight Bearing Right Lower Extremity: Right Weight Bearing/Tolerated Left Lower Extremity: Left Weight Bearing/Tolerated Exercises Supine Ex: Ankle pumps, Quad Set, Glut sets, Heel Slides, Short Arc Quads, Straight leg raise, Hip abd/add Supine Reps: 15 bilateral manual ankle stretching Treatments BLE exercises Assessment Current Status: Poor Progress very weak lower extremities, O2 stayed at 89%-91%, it fell once to 87% and came back up quickly with purse lip breathing. PT Short Term Goals Short Term Goals Time Frame: Oct 26, 2018 Transfers (B,C,W/C) (FIM): 4 Gait (FIM): 1 Distance (FIM): 1=up to 49 ft Gait Distance Comment: 45' Gait Level of Assist: 4 Gait Assistive Device: FWW PT Assemblyman Or Woman Goals Skilled Nursing Goals PT Skilled Nursing Goals Time Frame: Nov 09, 2018 Transfers (B,C,W/C) (FIM): 6 Sit to Lying (QC): 6 Lying-Sitting on Side/Bed(QC): 6 Sit to Stand (QC): 6 Rollin Roll Left to Right (QC): 6 Chair/Hpx-kg-Vxzyd Xfer(QC): 6 Car Transfer (QC): 6 Does the Patient Walk: Yes Gait (FIM): 2 Gait distance (FIM): 3=456-11 ft Distance: 125' Walk 10 feet (QC): 5 Walk 10ft-Uneven Surface(QC): 5 Walk 50ft with 2 Turns (QC): 5 Gait Level of Assist: 5 Gait Assistive Device: FWW Stairs (FIM): 2 # of Steps: 4 1 Step (curb) (QC): 5 4 Steps (QC): 5 12 Steps (QC): 9 Stairs Level Of Assist: 5 Picking up an Object (QC): 5 PT Plan Problem List Problem List: Activity Tolerance, Functional Strength, Safety, Balance, Gait, Transfer, Bed Mobility, ROM Treatment/Plan Treatment Plan: Continue Plan of Care Treatment Plan: Bed Mobility, Education, Functional Activity [place], Functional Strength, Gait, Safety, Therapeutic Exercise, Transfers Treatment Duration: Nov 09, 2018 Frequency: 11 times per week Estimated Hrs Per Day: .5 hour per day Patient and/or Family Agrees t: Yes Safety Risks/Education Patient Education: Correct Positioning, Safety Issues Teaching Recipient: Patient Teaching Methods: Demonstration, Discussion Response to Teaching: Reinforcement Needed Time/GCodes Time In: 1148 Time Out: 1203 Total Billed Treatment Time: 15 Total Billed Treatment 1 visit EX MARIA ELENA PALACIOS PT Oct 16, 2018 12:48
--- NOTE | 2018-10-16 13:38 | Occupational Ther Daily Note ---
OT Current Status-Daily Note Subjective No pain reported. Appearance Pt. in bed. Agrees to work with therapist. Mental Status/Objective Patient Orientation: Person, Place, Time, Situation Therapy Code Descriptions/Definitions Functional [place] Measure: 0=Not Assessed/NA 4=Minimal Assistance 1=Total Assistance 5=Supervision or Setup 2=Maximal Assistance 6=Modified [place] 3=Moderate Assistance 7=Complete [place] ADL-Treatment Therapy Code Descriptions/Definitions Functional [place] Measure: 0=Not Assessed/NA 4=Minimal Assistance 1=Total Assistance 5=Supervision or Setup 2=Maximal Assistance 6=Modified [place] 3=Moderate Assistance 7=Complete [place] Therapy Quality Codes: 6 Independent with activity with or without an assistive device 5 Patient requires set up or clean up by helper. Patient completes activity by themselves 4 Supervision or touching assist (CGA). [place] provide cues , steadying assist 3 The helper provides less than half the effort to complete the activity 2 The helper provides more than half the effort to complete the activity 1 Dependent. The helper does all the effort to complete an activity 7 Patient refused to complete or attempt activity 9 The patient did not perform the activity before the current illness or injury 88 Not attempted due to Medical conditions or safety concerns Grooming (FIM): 5 (Set up to wash face and brush hair.) OT placed pt. in chair position while in bed. Worked on core strengthening while in bed to sit upright and flex forward slightly. Completed this at slow pace and with cues to breathe deep. Pt. has difficulty with this due to weakness. Also completed 5 bilateral UE exercises x 10 reps in all planes with AROM only. OT monitored o2 sats while pt. performed these exercises. Pt. fatigues quickly and sats would often drop to 85-87%. Pt. encouraged to breathe and get sats back into 90s, which he was able to do. PT came in at end of pt's treatment, and started their treatment. Education OT Patient Education: Correct positioning, Exercise program, Progress toward Goal/Update tx plan, Purpose of tx/functional activities, Reviewed precautions, Rehab process, Transfer techniques Teaching Recipient: Patient Teaching Methods: Demonstration, Discussion Response to Teaching: Verbalize Understanding, Return Demonstration OT Short Term Goals Short Term Goals Time Frame: Oct 25, 2018 Grooming(FIM): 4 Bathing(FIM): 4 Lower Body Dressing(FIM): 3 Transfers (B,C,W/C) (FIM): 4 Additional Short Term Goals: 1-Demonstrate ADL Tasks, 2-Verbalize Understanding, 3-ImproveStrength/[place] 1=Demonstrate adherence to instructed precautions during ADL tasks. 2=Patient will verbalize/demonstrate understanding of assistive devices/modifications for ADL. 3=Patient will improve strength/tolerance for activity to enable patient to perform ADL's. OT Assisted Goals Assisted Goals Time Frame: Nov 08, 2018 Eating (FIM): 6 Eating (QC): 6 Groomin Oral Hygiene (QC): 5 Bathing(FIM): 5 Shower/Bathe Self (QC): 5 Upper Body Dressing(FIM): 5 Upper Body Dressing (QC): 5 Lower Body Dressing(FIM): 5 Lower Body Dressing (QC): 5 On/Off Footwear (QC): 5 Toileting(FIM): 5 Toileting Hygiene (QC): 5 Transfers (B,C,W/C) (FIM): 5 Toilet/Commode Transfer(FIM): 5 Toilet/Commode Transfer (QC): 5 Shower Transfer(FIM): 5 Additional Goals: 1-Demonstrate ADL Tasks, 2-Verbalize Understanding, 3- ImproveStrength/Gil[place] 1=Demonstrate adherence to instructed precautions during ADL tasks. 2=Patient will verbalize/demonstrate understanding of assistive devices/modifications for ADL. 3=Patient will improve strength/tolerance for activity to enable patient to perform ADL's. OT Education/Plan Problem List/Assessment Assessment: Decreased Activ Tolerance, Dependent Transfers, Impaired Bed Mobility, Impaired I ADL's, Impaired Self-Care Skills pt present with functional limitations affecting areas of ADLs and functional transfers with the above mention deficits. pt would benefit from OT services to increase independence with ADLs and functional transfers. Discharge Recommendations Plan/Recommendations: Continue POC Treatment Plan/Plan of Care Treatment,Training & Education: Yes Patient would benefit from OT for education, treatment and training to promote independence in ADL's, mobility, safety and/or upper extremity function for ADL's. Plan of Care: ADL Retraining, Caregiver Training, Concurrent Therapy, Functional Mobility, Group Exercise/Act as Ind, UE Funct Exercise/Act Treatment Duration: Nov 08, 2018 Frequency: 5 times per week Estimated Hrs Per Day: .25 hour per day (0.50) Agreement: Yes Rehab Potential: Fair Time/GCodes Start Time: 11:25 Stop Time: 11:48 Total Time Billed (hr/min): 23 Billed Treatment Time 1, Ex x 10minutes, FA x 13minutes ANURAG HENRIQUEZ OT Oct 16, 2018 13:38
[2018-10-16] MEDS: TAMSULOSIN 0.4 MG (FLOMAX) CAP PO SCH (17:02)
--- NOTE | 2018-10-16 18:37 | Cardiology Progress Note ---
Cardiology SOAP Progress Note Subjective: shortness of breath. Objective: I&O/Vital Signs 10/17/18 10/17/18 10/17/18 10/17/18 06:47 08:00 08:25 10:00 Temp 98.2 Pulse 75 Resp 20 B/P (MAP) 143/77 (99) Pulse Ox 87 90 O2 Delivery High Flow N/C Nasal Cannula High Flow N/C High Flow N/C O2 Flow Rate 3.00 6.00 6.00 6.00 10/17/18 10/17/18 10/17/18 10/17/18 10:03 12:00 14:45 16:20 Temp 97.8 97.0 Pulse 78 61 Resp 20 26 B/P (MAP) 120/80 (93) 116/68 (84) Pulse Ox 97 90 94 95 O2 Delivery High Flow N/C Nasal Cannula High Flow N/C Nasal Cannula O2 Flow Rate 6.00 6.00 5.00 5.00 10/17/18 00:00 Intake Total 2760 ml Output Total 2550 ml Balance 210 ml Weight (Pounds): 174 Weight (Ounces): 4.0 Weight (Calculated Kilograms): 79.849908 Constitutional: AAO x 3, apparent distress Respiratory: accessory muscle use, chest is bilaterally symmetric, lungs clear to auscultation Cardiovascular: regular rate-rhythm; No irregularly irregular, No extra beats, No parasternal heave is noted, No JVD, No edema, No bradycardia, No tachycardia, No point of maximal impulse, No cardiac thrills are palpable; S1 and S2; No gallop/S3, No gallop/S4, No diastolic murmur, No systolic murmur, No friction rub, No click, No other Gastrointestional: No tender, No soft, No round, No distended, No pulsatile mass, No organomegaly, No guarding, No rebound, No tenderness, No hernia, No mass, No audible bowel sounds, No abnormal bowel sounds, No abdominal bruits, No spleenomegaly, No other Extremities: No normal range of motion, No non-tender, No normal inspection, No pedal edema, No calf tenderness, No normal capillary refill, No pelvis stable, No calf tenderness, No inflammation, No pedal edema, No slow capillary refill, No swelling, No other, No abrasion, No clubbing, No cyanosis, No ecchymosis, No laceration, No no lower extremity edema bilateral, No significant edema, No tenderness, No wound Neurologic/Psychiatric: no motor/sensory deficits, alert, normal mood/affect, oriented x 3 Results/Procedures: Labs Laboratory Tests 10/16/18 18:10: Activated Partial Thromboplast Time 77H 10/16/18 20:49: Glucometer 270H 10/17/18 05:12: Activated Partial Thromboplast Time 111H, White Blood Count 7.9, Red Blood Count 3.23L, Hemoglobin 9.3L, Hematocrit 28L, Mean Corpuscular Volume 88, Mean Corpuscular Hemoglobin 29, Mean Corpuscular Hemoglobin Concent 33, Red Cell Distribution Width 16.1H, Platelet Count 398, Mean Platelet Volume 9.8, Neutrophils (%) (Auto) 72, Lymphocytes (%) (Auto) 16, Monocytes (%) (Auto) 8, Eo sinophils (%) (Auto) 4, Basophils (%) (Auto) 0, Neutrophils # (Auto) 5.7, Lymphocytes # (Auto) 1.3, Monocytes # (Auto) 0.6, Eosinophils # (Auto) 0.3, Basophils # (Auto) 0.0, Sodium Level 134L, Potassium Level 4.1, Chloride Level 100, Carbon Dioxide Level 26, Anion Gap 8, Blood Urea Nitrogen 14, Creatinine 0.80, Estimat Glomerular Filtration Rate > 60, BUN/Creatinine Ratio 18, Glucose Level 153H, Calcium Level 8.2L, Phosphorus Level 2.7, Magnesium Level 1.6L 10/17/18 11:25: Glucometer 181H 10/17/18 16:20: Glucometer 252H Microbiology 10/14/18 Gram Stain - Final, Complete 10/14/18 Sputum Culture - Final, Complete Usual upper respiratory evette Enterobacter aerogenes A/P: Assessment/Dx: pulmonary embolism, pulmonary hemorrhage. Weakness and malaise and low grade fever and leucocytosis, systemic infection suspected, managed by Dr Saravia Relatively low bp lately necessitating d/c diltiazem and reduction in beta- sita. BP has since been better Hemoptysis and pulmonary hemorrhage necessitating discontinuation of Eliquis and aspirin in mid-August 2018; low-dose aspirin reinitiated on 7/2/19 Echo of 09/19/18: LVEF 60-65%, biatrial enlargement, mod MR, mild to mod TR, RVSP 45 mmHg 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 Cardiac cath from December 30, 2013 in which successful GAURI x 2, one to the proximal and one to the mid vessel LAD, was done. 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 Pacemaker currently in the VVIR mode, due to permanent atrial fib. The patient had a pulse generator change out on 12/18/2011. The device is functioning normally per last interrogation of September 23, 2018 (DIMITRIOS estimate 11 months) History of ulcerative colitis, being managed by Dr. Parsons and Dr. Seymour Stroke prophylaxis with Eliquis - currently being held d/t hemoptysis Sleep apnea for which he is following with Dr Mijares - Bi-pap therapy Hyperlipidemia being treated with rosuvastatin. Mild carotid arterial disease that has been followed by Dr. Mcdaniel History of cholecystectomy. 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 May consider watchman device as an outpatient for stroke prevention in a patient with atrial fibrillation. * Pulmonary embolism, on IV heparin. Consider IVC filter. Discussed with the patient and family. Will discuss with Dr. Parsons is well. currently the patient is improving and lower extremity ultrasound did not show any significant DVT. Thank you for your consultation. Please call me if you have any questions. Naren Raines MD, FACP, FACC, FSCAI, FHRS, CCDS Interventional Cardiology Cardiac Electrophysiology Vascular Medicine and Endovascular Interventions Deepak RAINES MD Oct 16, 2018 18:36
[2018-10-16] MEDS: traZODone 50 MG (DESYREL) TAB PO SCH (20:48)
[2018-10-16] MEDS: MESALAMINE PO SCH (20:48)
[2018-10-17] VITALS (7 sets, daily range): BP systolic 108–155; BP diastolic 66–80
[2018-10-17] MEDS: RT-ALBUTEROL/IPRATROPIUM 3 ML (DUONEB) VIAL INH SCH ×5 (02:00→22:00)
[2018-10-17] MEDS: MEROPENEM 500 MG in WATER (STERILE) FOR INJECTION 10 ML IV SCH ×4 (03:22→22:33)
[2018-10-17] MEDS: metroNIDAZOLE 500MG/100ML IVPB 100 ML IV SCH ×3 (05:16→21:01)
[2018-10-17 05:22] LABS: BASOPHILS % (AUTO) 0 % (0-10); EOSINOPHILS # (AUTO) 0.3 10^3/uL (0.0-0.3); EOSINOPHILS % (AUTO) 4 % (0-10); HEMATOCRIT 28 % (40-54); HEMOGLOBIN 9.3 G/DL (13.3-17.7); LYMPHOCYTES # (AUTO) 1.3 X 10^3 (1.0-4.0); LYMPHOCYTES % (AUTO) 16 % (12-44); MEAN CORPUSCULAR HEMOGLOBIN 29 PG (25-34); MEAN CORPUSCULAR HGB CONC 33 G/DL (32-36); MEAN CORPUSCULAR VOLUME 88 FL (80-99); MEAN PLATELET VOLUME 9.8 FL (7.4-10.4); MONOCYTES # (AUTO) 0.6 X 10^3 (0.0-1.0); MONOCYTES % (AUTO) 8 % (0-12); NEUTROPHILS # (AUTO) 5.7 X 10^3 (1.8-7.8); NEUTROPHILS % (AUTO) 72 % (42-75); PLATELET COUNT 398 10^3/uL (130-400); RED CELL DISTRIBUTION WIDTH 16.1 % (10.0-14.5); WHITE BLOOD COUNT 7.9 10^3/uL (4.3-11.0)
[2018-10-17 05:43] LABS: BUN/CREATININE RATIO 18; CALCIUM 8.2 MG/DL (8.5-10.1); CARBON DIOXIDE 26 MMOL/L (21-32); CHLORIDE 100 MMOL/L (98-107); GFR ESTIMATED > 60; GLUCOSE 153 MG/DL (70-105); MAGNESIUM 1.6 MG/DL (1.8-2.4); PHOSPHORUS 2.7 MG/DL (2.3-4.7); POTASSIUM 4.1 MMOL/L (3.6-5.0); SODIUM 134 MMOL/L (135-145)
[2018-10-17] MEDS: inSUlin ASPART (NovoLOG) 1 UNIT/0.01 ML (CHARGE PER UNIT) SC SCH ×4 (06:05→20:56)
[2018-10-17] MEDS: LACTOBACILLUS ACIDOPHILUS (PROBIOTIC) CAPSULE PO SCH ×2 (06:08→16:56)
[2018-10-17] MEDS: KCL 10 MEQ TAB (MICRO K) PO SCH ×2 (06:08→16:56)
[2018-10-17] MEDS: PANTOPRAZOLE 40 MG (PROTONIX) TAB PO SCH (06:08)
--- NOTE | 2018-10-17 06:55 | NUR ---
Due to O2 sat of 87% on 3 L RT increased O2 to 5 L to get his O2 sat to come up above 90%
--- NOTE | 2018-10-17 07:58 | Pulmonary Progress Note ---
Subjective Time Seen by a Provider: 11:25 Subjective/Events-last exam Denies worsening SOB. Sepsis Event Evaluation Height, Weight, BMI Height: 5'6.00" Weight: 174lbs. 4.0oz. 79.135165is; 33.1 BMI Method:Stated Exam Exam Vital Signs Date Time Temp Pulse Resp B/P (MAP) Pulse Ox O2 Delivery O2 Flow Rate FiO2 10/17/18 06:47 87 High Flow N/C 3.00 10/17/18 03:50 96.0 75 24 124/69 (87) 96 NIV Bilevel 35.00 10/17/18 02:00 64 22 95 35.00 10/17/18 00:35 96.8 65 24 128/66 (86) 98 NIV Bilevel 35.00 10/16/18 23:50 64 95 35 10/16/18 21:50 76 34 92 40.00 10/16/18 20:40 High Flow N/C 3.00 10/16/18 19:51 98.6 63 18 132/69 (90) 94 Vapotherm 15.00 10/16/18 16:00 97.3 60 20 117/69 (85) 94 Vapotherm 15.00 10/16/18 15:00 92 High Flow N/C 3.00 10/16/18 12:00 98.1 71 18 125/75 (92) 91 Vapotherm 15.00 10/16/18 10:42 96 High Flow N/C 5.00 10/16/18 08:00 97.8 59 18 106/61 (76) 95 Vapotherm 15.00 10/16/18 08:00 95 Nasal Cannula 5.00 I & O 10/17/18 07:00 Intake Total 3070 ml Output Total 2925 ml Balance 145 ml Height & Weight Height: 5'6.00" Weight: 174lbs. 4.0oz. 79.128645pv; 33.1 BMI Method:Stated General Appearance: No Apparent Distress HEENT: PERRL/EOMI, TMs Normal, Normal ENT Inspection, Pharynx Normal Neck: Full Range of Motion, Supple Respiratory: Chest Non Tender, Other (Few scattered rhonchi noted with no wheezes breath sounds are coarse good air movement) Cardiovascular: Systolic Murmur (1-2/6 noted over the aortic outflow tract no diastolic murmurs noted.), Irregularly Irregular Extremity: Normal Capillary Refill, Normal Range of Motion, Non Tender, No Pedal Edema Neurologic/Psychiatric: Alert, Oriented x3 Skin: Warm/Dry, Pallor Results Lab Laboratory Tests 10/15/18 10:05 10/15/18 16:50 10/16/18 05:06 10/17/18 05:12 Assessment/Plan Assessment/Plan Acute bilateral PE -Continue heparin for now. -USP treatment may be better with Lovenox Sub Q 1mg/kg BID -Pt developed pulmonary hemorrhage with Eliquis Kelbsiella PNA -Zosyn Hypokalemia, hypomag -replace Pulmonary hemorrhage - resolved Afib Generalized weakness Overall prognosis is poor. Pt is considering Hospice care. JUAN HESS DO Oct 17, 2018 07:58
[2018-10-17] MEDS: DILTIAZEM 120 MG (CARDIZEM CD) CAP PO SCH (08:21)
[2018-10-17] MEDS: DIPHENOXYLATE/ATROPINE 2.5MG/0.025MG (LOMOTIL) TAB PO SCH (08:21)
[2018-10-17] MEDS: DULoxetine 20 MG (CYMBALTA) CAP PO SCH ×2 (08:22→20:54)
[2018-10-17] MEDS: LOSARTAN 50 MG (COZAAR) TAB PO SCH (08:22)
[2018-10-17] MEDS: FUROSEMIDE 40 MG/4 ML INJ (LASIX) IVP SCH (08:22)
[2018-10-17] MEDS: SPIRONOLACTONE 25 MG (ALDACTONE) TAB PO SCH (08:22)
[2018-10-17] MEDS: meTOprolol TARTRATE 25 MG (LOPRESSOR) TABLET PO SCH ×2 (08:22→20:54)
--- NOTE | 2018-10-17 08:41 | Progress Note ---
Subjective Date Seen by a Provider: Oct 17, 2018 Time Seen by a Provider: 08:40 Subjective/Events-last exam PT REPORTS THAT HE IS FEELING A LOT BETTER - HE REPORTS THAT HIS BREATHING SEEMS TO BE BETTER. HIS REPORTS THAT HE HAS NOT HAD A CHANGE IN HIS STOOLS. HE REPORTS THAT HIS MUSCLES DO FEEL A LITTLE STRONGER. Review of Systems General: Fatigue HEENT: No Head Aches Pulmonary: Dyspnea, Cough Cardiovascular: No: Chest Pain Gastrointestinal: No: Nausea, Abdominal Pain Genitourinary: Other (ALEXANDER IN PLACE) Musculoskeletal: No: leg pain Neurological: Weakness (BUT IMPROVED); No: Confusion Objective Exam Last Set of Vital Signs Vital Signs Date Time Temp Pulse Resp B/P (MAP) Pulse Ox O2 Delivery O2 Flow Rate FiO2 10/17/18 06:47 87 High Flow N/C 3.00 10/17/18 03:50 96.0 75 24 124/69 (87) 10/16/18 23:50 35 Capillary Refill : Less Than 3 Seconds I&O Intake and Output 10/17/18 00:00 Intake Total 3610 ml Output Total 2850 ml Balance 760 ml Intake Oral 1760 ml IV Total 1850 ml Output Urine Total 2850 ml # Bowel Movements 3 General: Alert, Oriented X3, Cooperative, No Acute Distress HEENT: Atraumatic, PERRLA Neck: Supple Lungs: Other (CLEAR IN UPPER LUNG LAW AND DECREASED IN LEFT BASE, IMPROVED IN RIGHT BASE) Heart: Other (IRREGULARLY IRREGULAR) Abdomen: Normal Bowel Sounds, Soft, No Tenderness Skin: No Rashes Neuro: Cranial Nerves 3-12 NL Psych/Mental Status: Mental Status NL, Mood NL Results Lab Laboratory Tests 10/16/18 11:08: Glucometer 291H 10/16/18 12:22: Activated Partial Thromboplast Time 73H 10/16/18 16:11: Glucometer 285H 10/16/18 18:10: Activated Partial Thromboplast Time 77H 10/16/18 20:49: Glucometer 270H 10/17/18 05:12: White Blood Count 7.9, Red Blood Count 3.23L, Hemoglobin 9.3L, Hematocrit 28L, Mean Corpuscular Volume 88, Mean Corpuscular Hemoglobin 29, Mean Corpuscular Hemoglobin Concent 33, Red Cell Distribution Width 16.1H, Platelet Count 398, Mean Platelet Volume 9.8, Neutrophils (%) (Auto) 72, Lymphocytes (%) (Auto) 16, Monocytes (%) (Auto) 8, Eosinophils (%) (Auto) 4, Basophils (%) (Auto) 0, Neutrophils # (Auto) 5.7, Lymphocytes # (Auto) 1.3, Monocytes # (Auto) 0.6, Eosinophils # (Auto) 0.3, Basophils # (Auto) 0.0, Activated Partial Thromboplast Time 111H, Sodium Level 134L, Potassium Level 4.1, Chloride Level 100, Carbon Dioxide Level 26, Anion Gap 8, Blood Urea Nitrogen 14, Creatinine 0.80, Estimat Glomerular Filtration Rate > 60, BUN/Creatinine Ratio 18, Glucose Level 153H, Calcium Level 8.2L, Phosphorus Level 2.7, Magnesium Level 1.6L Microbiology 10/14/18 Gram Stain - Final, Complete 10/14/18 Sputum Culture - Final, Complete Usual upper respiratory evette Enterobacter aerogenes Assessment/Plan Assessment/Plan Assess & Plan/Chief Complaint PULMONARY HEMORRHAGE KLEBSIELLA PNEUMONIA ENTEROBACTER AEROGENES PULMONARY EMBOLI - -RIGHT SIDED PULMONARY EDEMA ATRIAL FIBRILLATION HYPERTENSION HYPERLIPIDEMIA ULCERATIVE COLITIS GENERALIZED WEAKNESS INSOMNIA CHRONIC ANTICOAGULATION USE BPH CRITICAL CARE MYOPATHY EMPHYSEMA HYPOMAGNESEMIA HYPOKALEMIA DIARRHEA ANEMIA PULMONARY HEMORRHAGE WITH KLEBSIELLA PNEUMONIA AND ENTEROBACTER AEROGENES - - KLEBSIELLA SEEMS TO BE RESOLVED - ZOSYN STOPPED AND ENTEROBACTER TO BE TREATED WITH MEROPENEM - STARTED YESTERDAY - AND THIS CULTURE REPORT SHOWED SENSITIVITY TO THE MEROPENEM. PULMONARY EMBOLI - FOUND ON CT SCAN - THE PT WAS STARTED ON HEPARIN DRIP - HE WILL BE VERY CLOSELY MONITORED TO SEE IF HE HAS AN RECURRENT HEMORRHAGE ON ANTICOAGULATION. WE WILL HAVE TO DISCUSS IF IT IS AN OPTION TO PUT YEHUDA ON A DIFFERENT ANTICOAGULANT ORALLY ? PRADAXA? - MAY NEED TO CONSIDER AN INFERIOR VENA-CAVA FILTER. ATRIAL FIBRILLATION - -ASPIRIN HELD DUE TO RECURRENT PULMONARY HEMORRHAGE, ELIQUIS HAD TO BE STOPPED DUE TO RECURRENT PULMONARY HEMORRHAGES. - DEFER OTHER TREATMENT TO SHAPER SET UP OPERATOR - DR. BERNAL ON FOR DR. JUNIOR - WE HAVE DISCUSSED IN THE FUTURE THE WATCHMAN DEVICE. HYPERTENSION - CONTINUE WITH METOPROLOL ORALLY HYPERLIPIDEMIA - STABLE - CONTINUE TO HOLD STATIN DUE TO HIS CRITICAL ILLNESS MYOPATHY ULCERATIVE COLITIS - RESTARTED LIALDA - HELD TODAY DUE TO POSSIBLE CDIFF GENERALIZED WEAKNESS -PT WAS ADMITTED TO IN REHAB FOR THERAPY FOR STRENGTHENING. EMPHYSEMA - DX ON HIS CT SCAN - HE WILL NEED CONTINUED TREATMENT OF HIS ILLNESS WITH DR. HESS AN OUTPATIENT. INSOMNIA - RESTARTED HIS HOME MELATONIN DOSING. BPH - RESTARTED TAMSULOSIN. HYPOMAGNESEMIA - IMPROVED MONITOR LABS HYPOKALEMIA - STABLE DIARRHEA - PT HAS KNOWN ULCERATIVE COLITIS - TREMOR DUE TO STEROIDS ELEVATED BLOOD GLUCOSE DUE TO STEROIDS PT TO HAVE AN INCREASE IN THERAPY TODAY - DISCUSSED WITH THERAPY STAFF - GET PT OUT OF BED AND MOBILIZE MORE TODAY. PT HAS BEEN WEARING HIS DENTURES 24 HOURS/DAY - I HAVE ADVISED TO TAKE OUT DENTURES, LEAVE OUT AT BEDTIME, WASH REALLY WELL/BRUSH/SOAK WELL AND THEN MAY RETURN THEM TO HIS MOUTH TODAY. I AM WONDERING IF SOME OF THE BACTERIA COULD BE COMING FROM HIS UNCLEAN DENTURES. CT OF CHEST FROM 10/15/18 MORNING Impression: 1. Moderately extensive acute pulmonary emboli in multiple segmental vessels in the right lung. 2. Worsened bilateral groundglass and interstitial opacities most likely representing moderate pulmonary edema. Critical findings were communicated to LEIDA Herrera by Dr. Upton at 920 on 10/15/2018 Clinical Quality Measures Admission Status Admission Dx PULMONARY HEMORRHAGE KELBSIELLA PNEUMONIA ATRIAL FIBRILLATION HYPERTENSION HYPERLIPIDEMIA ULCERATIVE COLITIS GENERALIZED WEAKNESS INSOMNIA CHRONIC ANTICOAGULATION USE BPH CRITICAL CARE MYOPATHY EMPHYSEMA HYPOMAGNESEMIA HYPOKALEMIA DIARRHEA ANEMIA DVT/VTE Risk/Contraindication: Risk Factor Score Per Nursin CODEY BARILLAS MD Oct 17, 2018 08:41
--- NOTE | 2018-10-17 09:17 | Diagnostic Imaging Report ---
Patient History: Shortness of breath. Increased sputum.. Technique: Single frontal view of the chest Comparison: Chest radiograph on 10/15/2018. CTA chest on 10/15/2018. FINDINGS: Continued cardiomegaly with central pulmonary vascular congestion and interstitial and alveolar opacities throughout the lungs. Overall this is unchanged compared to the prior exam. Increased small right pleural effusion. No large pneumothorax. Post CABG changes are noted. There is stable configuration of the left pectoral dual-chamber pacemaker. Osseous structures demonstrate no acute abnormalities. IMPRESSION: Stable cardiomegaly with central pulmonary vascular congestion and pulmonary edema. New small right pleural effusion. Dictated by: Dictated on workstation # [id number]
--- NOTE | 2018-10-17 11:45 | NUR ---
SWINGBED note. This RN went in to see patient. He was alert and sitting in the chair. I had heard from PT that he was complaining of chest pain earlier in the morning. RN confirmed this complaint and also mentioned that his face was bright red and he was SOB with high 80's SpO2 and turned his Oxygen up to 6 L. Patient, during my visit, denied current chest pain stating"I think it was because I needed to go to the bathroom". He reports that it went away after a successful elimination. Reminded him that with everything that has gone on with him that we need to take CP seriously if it is constant. No current needs. He is anticipating OT to arrive soon.
--- NOTE | 2018-10-17 11:46 | Physical Therapy Daily Note ---
PT Daily Note-Current Subjective Patient and family agree to PT. Patient is on 5L NC HF and SAO2 93% at rest. Transfers Therapy Code Descriptions/Definitions Functional [place] Measure: 0=Not Assessed/NA 4=Minimal Assistance 1=Total Assistance 5=Supervision or Setup 2=Maximal Assistance 6=Modified [place] 3=Moderate Assistance 7=Complete [place] Therapy Quality Codes: 6 Independent with activity with or without an assistive device 5 Patient requires set up or clean up by helper. Patient completes activity by themselves 4 Supervision or touching assist (CGA). [place] provide cues , steadying assist 3 The helper provides less than half the effort to complete the activity 2 The helper provides more than half the effort to complete the activity 1 Dependent. The helper does all the effort to complete an activity 7 Patient refused to complete or attempt activity 9 The patient did not perform the activity before the current illness or injury 88 Not attempted due to Medical conditions or safety concerns Transfers (B, C, W/C) (FIM): 1 Scootin Rollin Roll Left to Right (QC): 2 Supine to/from Sit: 2 Sit to/from Stand: 1 Sit to Lying (QC): 2 Sit to Stand (QC): 1 Chair/[id number]-Kjhlk Xfer(QC): 1 Bed to/from Chair: 1 sit to stand lift for transfers with patient incontinent BM during transfer. Weight Bearing Right Lower Extremity: Right Weight Bearing/Tolerated Left Lower Extremity: Left Weight Bearing/Tolerated Exercises Supine Ex: Ankle pumps, Quad Set, Heel Slides Supine Reps: 12 Seated Therapy Exercises: Ankle pumps, Long arc quads, Hip flexion Standing Reps: 15 (3 sets) Assessment Increase O2 to 6L NC HF with activity. Patient is up in recliner with needs met. Patient SAO2 decreases to 75% with bed mobility, sitting EOB and with sit to stand lift bed to recliner. PT Short Term Goals Short Term Goals Time Frame: Oct 26, 2018 Transfers (B,C,W/C) (FIM): 4 Gait (FIM): 1 Distance (FIM): 1=up to 49 ft Gait Distance Comment: 45' Gait Level of Assist: 4 Gait Assistive Device: FWW PT [facility] Goals B2B Sales Executive Goals PT B2B Sales Executive Goals Time Frame: Nov 09, 2018 Transfers (B,C,W/C) (FIM): 6 Sit to Lying (QC): 6 Lying-Sitting on Side/Bed(QC): 6 Sit to Stand (QC): 6 Rollin Roll Left to Right (QC): 6 Chair/[id number]-Dmpyw Xfer(QC): 6 Car Transfer (QC): 6 Does the Patient Walk: Yes Gait (FIM): 2 Gait distance (FIM): 0=077-31 ft Distance: 125' Walk 10 feet (QC): 5 Walk 10ft-Uneven Surface(QC): 5 Walk 50ft with 2 Turns (QC): 5 Gait Level of Assist: 5 Gait Assistive Device: FWW Stairs (FIM): 2 # of Steps: 4 1 Step (curb) (QC): 5 4 Steps (QC): 5 12 Steps (QC): 9 Stairs Level Of Assist: 5 Picking up an Object (QC): 5 PT Plan Treatment/Plan Treatment Plan: Continue Plan of Care Treatment Plan: Bed Mobility, Education, Functional Activity [place], Functional Strength, Gait, Safety, Therapeutic Exercise, Transfers Treatment Duration: Nov 09, 2018 Frequency: 11 times per week Estimated Hrs Per Day: .5 hour per day Patient and/or Family Agrees t: Yes Time/GCodes Time In: 1105 Time Out: 1130 Total Billed Treatment Time: 25 Total Billed Treatment 1 visit FA 10 min EX 15 min CHIDI HUANG PT Oct 17, 2018 11:46
[2018-10-17] MEDS: ALPRAZolam 0.25 MG (XANAX) TAB PO PRN (12:00)
[2018-10-17] MEDS: DIPHENOXYLATE/ATROPINE 2.5MG/0.025MG (LOMOTIL) TAB PO PRN ×2 (12:52→20:00)
--- NOTE | 2018-10-17 13:30 | NUR ---
[facility] note: This RN has submitted clinical information for continued stay. Since admission to [facility] he has been diagnosed with an extensive PE requiring Heparin gtt. He has also had a change of Abx due to a sputum collection result. Having to work slowly with PT due to the above mentioned problems but he feels like he has gained some strength even with all that is going on.
--- NOTE | 2018-10-17 16:09 | Occupational Ther Daily Note ---
OT Current Status-Daily Note Subjective Pt. reports slight discomfort all over with movement. No pain number given. Appearance Pt. in bed asleep. Wakes up and agrees to work with OT. Mental Status/Objective Patient Orientation: Person, Place Therapy Code Descriptions/Definitions Functional [place] Measure: 0=Not Assessed/NA 4=Minimal Assistance 1=Total Assistance 5=Supervision or Setup 2=Maximal Assistance 6=Modified [place] 3=Moderate Assistance 7=Complete [place] ADL-Treatment Therapy Code Descriptions/Definitions Functional [place] Measure: 0=Not Assessed/NA 4=Minimal Assistance 1=Total Assistance 5=Supervision or Setup 2=Maximal Assistance 6=Modified [place] 3=Moderate Assistance 7=Complete [place] Therapy Quality Codes: 6 Independent with activity with or without an assistive device 5 Patient requires set up or clean up by helper. Patient completes activity by themselves 4 Supervision or touching assist (CGA). [place] provide cues , steadying assist 3 The helper provides less than half the effort to complete the activity 2 The helper provides more than half the effort to complete the activity 1 Dependent. The helper does all the effort to complete an activity 7 Patient refused to complete or attempt activity 9 The patient did not perform the activity before the current illness or injury 88 Not attempted due to Medical conditions or safety concerns Other Treatment Pt. has been back in bed approximately 40 minutes from sitting up in chair. Reports to this therapist that he had 3 bowel accidents when getting back on sit-stand machine, and would rather not use this at this time. Agrees to sit on side of bed. Pt. encouraged and given time to complete most of transfer himself. Cues to "walk" legs to side of bed, and then to use bedrail to pull self to side. OT did provide mod assist overall. Transferred to comfort level on side of bed, and able to sit approximately 20 minutes. Worked on upright posture, deep breathing, and pelvic tilts. Monitored 02 sats throughout, which stayed at approximately 90-96%. Pt. fatigued and stated that he felt that he couldnt hold himself up any longer. Laid back down supine with max assist. Mod assist provided to scoot up in bed with bed in trendelenburg position. All needs met. Education OT Patient Education: Correct positioning, Modified ADL techniques, Progress toward Goal/Update tx plan, Purpose of tx/functional activities, Reviewed precautions, Rehab process, Transfer techniques Teaching Recipient: Patient, Family Teaching Methods: Demonstration, Discussion Response to Teaching: Verbalize Understanding, Return Demonstration OT Short Term Goals Short Term Goals Time Frame: Oct 25, 2018 Grooming(FIM): 4 Bathing(FIM): 4 Lower Body Dressing(FIM): 3 Transfers (B,C,W/C) (FIM): 4 Additional Short Term Goals: 1-Demonstrate ADL Tasks, 2-Verbalize Understanding, 3-ImproveStrength/[place] 1=Demonstrate adherence to instructed precautions during ADL tasks. 2=Patient will verbalize/demonstrate understanding of assistive devices/modifications for ADL. 3=Patient will improve strength/tolerance for activity to enable patient to perform ADL's. OT Custodial Goals Custodial Goals Time Frame: Nov 08, 2018 Eating (FIM): 6 Eating (QC): 6 Groomin Oral Hygiene (QC): 5 Bathing(FIM): 5 Shower/Bathe Self (QC): 5 Upper Body Dressing(FIM): 5 Upper Body Dressing (QC): 5 Lower Body Dressing(FIM): 5 Lower Body Dressing (QC): 5 On/Off Footwear (QC): 5 Toileting(FIM): 5 Toileting Hygiene (QC): 5 Transfers (B,C,W/C) (FIM): 5 Toilet/Commode Transfer(FIM): 5 Toilet/Commode Transfer (QC): 5 Shower Transfer(FIM): 5 Additional Goals: 1-Demonstrate ADL Tasks, 2-Verbalize Understanding, 3- ImproveStrength/[place] 1=Demonstrate adherence to instructed precautions during ADL tasks. 2=Patient will verbalize/demonstrate understanding of assistive devices/modifications for ADL. 3=Patient will improve strength/tolerance for activity to enable patient to perform ADL's. OT Education/Plan Problem List/Assessment Assessment: Decreased Activ Tolerance, Dependent Transfers, Impaired Bed Mobility, Impaired I ADL's, Impaired Self-Care Skills pt present with functional limitations affecting areas of ADLs and functional transfers with the above mention deficits. pt would benefit from OT services to increase independence with ADLs and functional transfers. Discharge Recommendations Plan/Recommendations: Continue POC Treatment Plan/Plan of Care Treatment,Training & Education: Yes Patient would benefit from OT for education, treatment and training to promote independence in ADL's, mobility, safety and/or upper extremity function for ADL's. Plan of Care: ADL Retraining, Caregiver Training, Concurrent Therapy, Functional Mobility, Group Exercise/Act as Ind, UE Funct Exercise/Act Treatment Duration: Nov 08, 2018 Frequency: 5 times per week Estimated Hrs Per Day: .5 hour per day Agreement: Yes Rehab Potential: Fair Time/GCodes Start Time: 14:05 Stop Time: 14:31 Total Time Billed (hr/min): 26 Billed Treatment Time 1, FA x 2 ANURAG HENRIQUEZ OT Oct 17, 2018 16:09
--- NOTE | 2018-10-17 16:44 | Cardiology Progress Note ---
Cardiology SOAP Progress Note Subjective: still short of breath on 5 L of oxygen through nasal cannula. However he is off the oxygen mask. Objective: I&O/Vital Signs 10/17/18 10/17/18 10/17/18 10/17/18 06:47 08:00 08:25 10:00 Temp 98.2 Pulse 75 Resp 20 B/P (MAP) 143/77 (99) Pulse Ox 87 90 O2 Delivery High Flow N/C Nasal Cannula High Flow N/C High Flow N/C O2 Flow Rate 3.00 6.00 6.00 6.00 10/17/18 10/17/18 10/17/18 10/17/18 10:03 12:00 14:45 16:20 Temp 97.8 97.0 Pulse 78 61 Resp 20 26 B/P (MAP) 120/80 (93) 116/68 (84) Pulse Ox 97 90 94 95 O2 Delivery High Flow N/C Nasal Cannula High Flow N/C Nasal Cannula O2 Flow Rate 6.00 6.00 5.00 5.00 10/17/18 00:00 Intake Total 2760 ml Output Total 2550 ml Balance 210 ml Weight (Pounds): 174 Weight (Ounces): 4.0 Weight (Calculated Kilograms): [id number] Constitutional: AAO x 3, apparent distress Respiratory: accessory muscle use, chest is bilaterally symmetric, lungs clear to auscultation Cardiovascular: regular rate-rhythm; No irregularly irregular, No extra beats, No parasternal heave is noted, No JVD, No edema, No bradycardia, No tachycardia, No point of maximal impulse, No cardiac thrills are palpable; S1 and S2; No gallop/S3, No gallop/S4, No diastolic murmur, No systolic murmur, No friction rub, No click, No other Gastrointestional: No tender, No soft, No round, No distended, No pulsatile mass, No organomegaly, No guarding, No rebound, No tenderness, No hernia, No mass, No audible bowel sounds, No abnormal bowel sounds, No abdominal bruits, No spleenomegaly, No other Extremities: No normal range of motion, No non-tender, No normal inspection, No pedal edema, No calf tenderness, No normal capillary refill, No pelvis stable, No calf tenderness, No inflammation, No pedal edema, No slow capillary refill, No swelling, No other, No abrasion, No clubbing, No cyanosis, No ecchymosis, No laceration, No no lower extremity edema bilateral, No significant edema, No tenderness, No wound Neurologic/Psychiatric: no motor/sensory deficits, alert, normal mood/affect, oriented x 3 Results/Procedures: Labs Laboratory Tests 10/16/18 18:10: Activated Partial Thromboplast Time 77H 10/16/18 20:49: Glucometer 270H 10/17/18 05:12: Activated Partial Thromboplast Time 111H, White Blood Count 7.9, Red Blood Count 3.23L, Hemoglobin 9.3L, Hematocrit 28L, Mean Corpuscular Volume 88, Mean Corpuscular Hemoglobin 29, Mean Corpuscular Hemoglobin Concent 33, Red Cell Distribution Width 16.1H, Platelet Count 398, Mean Platelet Volume 9.8, Brenda trophils (%) (Auto) 72, Lymphocytes (%) (Auto) 16, Monocytes (%) (Auto) 8, Eosinophils (%) (Auto) 4, Basophils (%) (Auto) 0, Neutrophils # (Auto) 5.7, Lymphocytes # (Auto) 1.3, Monocytes # (Auto) 0.6, Eosinophils # (Auto) 0.3, Basophils # (Auto) 0.0, Sodium Level 134L, Potassium Level 4.1, Chloride Level 100, Carbon Dioxide Level 26, Anion Gap 8, Blood Urea Nitrogen 14, Creatinine 0.80, Estimat Glomerular Filtration Rate > 60, BUN/Creatinine Ratio 18, Glucose Level 153H, Calcium Level 8.2L, Phosphorus Level 2.7, Magnesium Level 1.6L 10/17/18 11:25: Glucometer 181H 10/17/18 16:20: Glucometer 252H Microbiology 10/14/18 Gram Stain - Final, Complete 10/14/18 Sputum Culture - Final, Complete Usual upper respiratory evette Enterobacter aerogenes A/P: Assessment/Dx: pulmonary embolism, pulmonary hemorrhage. Weakness and malaise and low grade fever and leucocytosis, systemic infection suspected, managed by Dr Saravia Relatively low bp lately necessitating d/c diltiazem and reduction in beta- sita. BP has since been better Hemoptysis and pulmonary hemorrhage necessitating discontinuation of Eliquis and aspirin in mid-August 2018; low-dose aspirin reinitiated on 10/01/18 Echo of 09/19/18: LVEF 60-65%, biatrial enlargement, mod MR, mild to mod TR, RVSP 45 mmHg 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 Cardiac cath from December 30, 2013 in which successful AGURI x 2, one to the proximal and one to the mid vessel LAD, was done. 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 Pacemaker currently in the VVIR mode, due to permanent atrial fib. The patient had a pulse generator change out on 12/18/2011. The device is functioning normally per last interrogation of September 23, 2018 (DIMITRIOS estimate 11 months) History of ulcerative colitis, being managed by Dr. Parsons and Dr. Seymour Stroke prophylaxis with Eliquis - currently being held d/t hemoptysis Sleep apnea for which he is following with Dr Mijares - Bi-pap therapy Hyperlipidemia being treated with rosuvastatin. Mild carotid arterial disease that has been followed by Dr. Mcdaniel History of cholecystectomy. 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 May consider watchman device as an outpatient for stroke prevention in a patient with atrial fibrillation. * Pulmonary embolism, on IV heparin. Consider IVC filter. Discussed with the patient and family. Will discuss with Dr. Parsons is well. currently the patient is improving and lower extremity ultrasound did not show any significant DVT. Thank you for your consultation. Please call me if you have any questions. Naren Raines MD, FACP, FACC, FSCAI, FHRS, CCDS Interventional Cardiology Cardiac Electrophysiology Vascular Medicine and Endovascular Interventions Deepak RAINES MD Oct 17, 2018 16:44
[2018-10-17] MEDS: TAMSULOSIN 0.4 MG (FLOMAX) CAP PO SCH (17:23)
[2018-10-17] MEDS: HEParin DRIP 25000 UNIT/500ML 500 ML IV SCH (17:57)
[2018-10-17] MEDS: traZODone 50 MG (DESYREL) TAB PO SCH (20:53)
[2018-10-17] MEDS: MESALAMINE PO SCH (20:54)
[2018-10-18] MEDS: RT-ALBUTEROL/IPRATROPIUM 3 ML (DUONEB) VIAL INH SCH ×6 (02:30→22:27)
[2018-10-18 04:00] VITALS: BP 126/69
[2018-10-18] MEDS: MEROPENEM 500 MG in WATER (STERILE) FOR INJECTION 10 ML IV SCH ×4 (04:30→23:50)
[2018-10-18] MEDS: inSUlin ASPART (NovoLOG) 1 UNIT/0.01 ML (CHARGE PER UNIT) SC SCH ×4 (06:04→21:18)
[2018-10-18 06:11] LABS: BASOPHILS # (AUTO) 0.1 10^3/uL (0.0-0.1); BASOPHILS % (AUTO) 1 % (0-10); EOSINOPHILS # (AUTO) 0.5 10^3/uL (0.0-0.3); EOSINOPHILS % (AUTO) 5 % (0-10); HEMATOCRIT 33 % (40-54); HEMOGLOBIN 10.8 G/DL (13.3-17.7); LYMPHOCYTES # (AUTO) 1.7 X 10^3 (1.0-4.0); LYMPHOCYTES % (AUTO) 17 % (12-44); MEAN CORPUSCULAR HEMOGLOBIN 29 PG (25-34); MEAN CORPUSCULAR HGB CONC 33 G/DL (32-36); MEAN CORPUSCULAR VOLUME 88 FL (80-99); MEAN PLATELET VOLUME 9.7 FL (7.4-10.4); MONOCYTES # (AUTO) 0.7 X 10^3 (0.0-1.0); MONOCYTES % (AUTO) 7 % (0-12); NEUTROPHILS % (AUTO) 71 % (42-75); PLATELET COUNT 388 10^3/uL (130-400); RED CELL DISTRIBUTION WIDTH 16.4 % (10.0-14.5); WHITE BLOOD COUNT 9.9 10^3/uL (4.3-11.0)
[2018-10-18] MEDS: metroNIDAZOLE 500MG/100ML IVPB 100 ML IV SCH (06:24)
[2018-10-18] MEDS: LACTOBACILLUS ACIDOPHILUS (PROBIOTIC) CAPSULE PO SCH ×2 (06:25→16:49)
[2018-10-18] MEDS: KCL 10 MEQ TAB (MICRO K) PO SCH ×2 (06:25→16:49)
[2018-10-18] MEDS: PANTOPRAZOLE 40 MG (PROTONIX) TAB PO SCH (06:25)
[2018-10-18 06:29] LABS: INR 1.2 (0.8-1.4); PROTHROMBIN TIME PATIENT 15.9 SEC (12.2-14.7)
[2018-10-18 06:44] LABS: BUN/CREATININE RATIO 14; CALCIUM 8.9 MG/DL (8.5-10.1); CARBON DIOXIDE 26 MMOL/L (21-32); CHLORIDE 99 MMOL/L (98-107); CREATININE SERUM 0.78 MG/DL (0.60-1.30); GFR ESTIMATED > 60; GLUCOSE 108 MG/DL (70-105); MAGNESIUM 1.5 MG/DL (1.8-2.4); POTASSIUM 4.1 MMOL/L (3.6-5.0); SODIUM 133 MMOL/L (135-145)
--- NOTE | 2018-10-18 07:29 | NUR ---
Ptt 93. Heparin gtt remains the same.
[2018-10-18 08:00] VITALS: BP 118/64
--- NOTE | 2018-10-18 08:28 | Progress Note ---
Subjective Date Seen by a Provider: Oct 18, 2018 Time Seen by a Provider: 09:30 Subjective/Events-last exam PT REPORTS THAT HE DID NOT SLEEP WELL LAST NIGHT. HE REPORTS THAT THE BIPAP WAS BLOWING IN HIS FACE ALL NIGHT - HAD A LEAK AT THE MASK. HE STATES THAT HIS RECTAL TISSUE HURTS BECAUSE OF HIS COPIOUS BOWEL MOVEMENTS. Review of Systems General: No Chills; Fatigue, Malaise HEENT: No Head Aches Pulmonary: Dyspnea, Cough Cardiovascular: No: Chest Pain, Palpitations Gastrointestinal: Other (RECTAL PAIN); No: Nausea, Abdominal Pain Musculoskeletal: back pain, leg pain Neurological: Weakness; No: Confusion Objective Exam Last Set of Vital Signs Vital Signs Date Time Temp Pulse Resp B/P (MAP) Pulse Ox O2 Delivery O2 Flow Rate FiO2 10/18/18 07:30 93 High Flow N/C 5.00 10/18/18 04:00 98.2 65 25 126/69 (88) 10/16/18 23:50 35 Capillary Refill : Less Than 3 Seconds I&O Intake and Output 10/18/18 00:00 Intake Total 1110 ml Output Total 3000 ml Balance -1890 ml Intake Oral 1000 ml IV Total 110 ml Output Urine Total 3000 ml # Bowel Movements 2 General: Alert, Oriented X3, Cooperative, No Acute Distress HEENT: Atraumatic, PERRLA Neck: Supple Lungs: Other (CLEAR IN UPPER LUNG LAW AND DECREASED IN LEFT BASE, IMPROVED IN RIGHT BASE - CRACKLES IN BASES) Heart: Other (IRREGULARLY IRREGULAR) Abdomen: Normal Bowel Sounds, Soft, No Tenderness Extremities: No Clubbing, No Cyanosis Skin: No Rashes Neuro: Cranial Nerves 3-12 NL Psych/Mental Status: Mental Status NL, Mood NL Results Lab Laboratory Tests 10/17/18 11:25: Glucometer 181H 10/17/18 16:20: Glucometer 252H 10/17/18 20:53: Glucometer 191H 10/18/18 05:50: White Blood Count 9.9, Red Blood Count 3.75L, Hemoglobin 10.8L, Hematocrit 33L, Mean Corpuscular Volume 88, Mean Corpuscular Hemoglobin 29, Mean Corpuscular Hemoglobin Concent 33, Red Cell Distribution Width 16.4H, Platelet Count 388, Mean Platelet Volume 9.7, Neutrophils (%) (Auto) 71, Lymphocytes (%) (Auto) 17, Monocytes (%) (Auto) 7, Eosinophils (%) (Auto) 5, Basophils (%) (Auto) 1, Neutrophils # (Auto) 7.0, Lymphocytes # (Auto) 1.7, Monocytes # (Auto) 0.7, Eosinophils # (Auto) 0.5H, Basophils # (Auto) 0.1, Prothrombin Time 15.9H, INR Comment 1.2, Activated Partial Thromboplast Time 93H, Sodium Level 133L, Potassium Level 4.1, Chloride Level 99, Carbon Dioxide Level 26, Anion Gap 8, Blood Urea Nitrogen 11, Creatinine 0.78, Estimat Glomerular Filtration Rate > 60, BUN/Creatinine Ratio 14, Glucose Level 108H, Calcium Level 8.9, Phosphorus Level 3.2, Magnesium Level 1.5L 10/18/18 06:00: Glucometer 113H Microbiology 10/17/18 Gram Stain - Final, Resulted 10/17/18 Sputum Culture, Resulted Pending Assessment/Plan Assessment/Plan Assess & Plan/Chief Complaint PULMONARY HEMORRHAGE KLEBSIELLA PNEUMONIA ENTEROBACTER AEROGENES PULMONARY EMBOLI - -RIGHT SIDED PULMONARY EDEMA ATRIAL FIBRILLATION HYPERTENSION HYPERLIPIDEMIA ULCERATIVE COLITIS GENERALIZED WEAKNESS INSOMNIA CHRONIC ANTICOAGULATION USE BPH CRITICAL CARE MYOPATHY EMPHYSEMA HYPOMAGNESEMIA HYPOKALEMIA DIARRHEA ANEMIA RECTAL PAIN PULMONARY HEMORRHAGE WITH KLEBSIELLA PNEUMONIA AND ENTEROBACTER AEROGENES - - KLEBSIELLA SEEMS TO BE RESOLVED - ZOSYN STOPPED AND ENTEROBACTER TO BE TREATED WITH MEROPENEM - AND THIS CULTURE REPORT SHOWED SENSITIVITY TO THE MEROPENEM. WAITING ON REPEAT SPUTUM CULTURE PULMONARY EMBOLI - FOUND ON CT SCAN - THE PT WAS STARTED ON HEPARIN DRIP - HE WILL BE VERY CLOSELY MONITORED TO SEE IF HE HAS AN RECURRENT HEMORRHAGE ON ANTICOAGULATION. WE WILL HAVE TO DISCUSS IF IT IS AN OPTION TO PUT YEHUDA ON A DIFFERENT ANTICOAGULANT ORALLY - DISCUSSION WITH DR. BERNAL AND DR. HESS WILL START HIM ON COUMADIN ON Sunday. ATRIAL FIBRILLATION - -ASPIRIN HELD DUE TO RECURRENT PULMONARY HEMORRHAGE, ELIQUIS HAD TO BE STOPPED DUE TO RECURRENT PULMONARY HEMORRHAGES. - DEFER OTHER TREATMENT TO RAILROAD INSPECTOR - DR. BERNAL ON FOR DR. JUNIOR - WE HAVE DISCUSSED IN THE FUTURE THE WATCHMAN DEVICE. HYPERTENSION - CONTINUE WITH METOPROLOL ORALLY HYPERLIPIDEMIA - STABLE - CONTINUE TO HOLD STATIN DUE TO HIS CRITICAL ILLNESS MYOPATHY ULCERATIVE COLITIS - RESTARTED LIALDA - HELD TODAY DUE TO POSSIBLE CDIFF GENERALIZED WEAKNESS -PT WAS ADMITTED TO IN REHAB FOR THERAPY FOR STRENGTHENING. EMPHYSEMA - DX ON HIS CT SCAN - HE WILL NEED CONTINUED TREATMENT OF HIS ILLNESS WITH DR. HESS AN OUTPATIENT. INSOMNIA - RESTARTED HIS HOME MELATONIN DOSING. BPH - RESTARTED TAMSULOSIN. HYPOMAGNESEMIA - IMPROVED MONITOR LABS HYPOKALEMIA - STABLE DIARRHEA - PT HAS KNOWN ULCERATIVE COLITIS - - NOW RECTAL PAIN - WILL HAVE TO GIVE PROCTOFOAM AND LIDOCAINE TREMOR DUE TO STEROIDS ELEVATED BLOOD GLUCOSE DUE TO STEROIDS PT TO HAVE AN INCREASE IN THERAPY TODAY - DISCUSSED WITH THERAPY STAFF - GET PT OUT OF BED AND MOBILIZE MORE TODAY. PT HAS BEEN WEARING HIS DENTURES 24 HOURS/DAY - I HAVE ADVISED TO TAKE OUT DENTURES, LEAVE OUT AT BEDTIME, WASH REALLY WELL/BRUSH/SOAK WELL AND THEN MAY RETURN THEM TO HIS MOUTH TODAY. I AM WONDERING IF SOME OF THE BACTERIA COULD BE COMING FROM HIS UNCLEAN DENTURES. CT OF CHEST FROM 10/15/18 MORNING Impression: 1. Moderately extensive acute pulmonary emboli in multiple segmental vessels in the right lung. 2. Worsened bilateral groundglass and interstitial opacities most likely representing moderate pulmonary edema. Critical findings were communicated to LEIDA Herrera by Dr. Upton at 920 on 10/15/2018 Clinical Quality Measures Admission Status Admission Dx PULMONARY HEMORRHAGE KELBSIELLA PNEUMONIA ATRIAL FIBRILLATION HYPERTENSION HYPERLIPIDEMIA ULCERATIVE COLITIS GENERALIZED WEAKNESS INSOMNIA CHRONIC ANTICOAGULATION USE BPH CRITICAL CARE MYOPATHY EMPHYSEMA HYPOMAGNESEMIA HYPOKALEMIA DIARRHEA ANEMIA DVT/VTE Risk/Contraindication: Risk Factor Score Per Nursin CODEY BARILLAS MD Oct 18, 2018 08:28
[2018-10-18] MEDS: meTOprolol TARTRATE 25 MG (LOPRESSOR) TABLET PO SCH ×2 (08:43→21:12)
[2018-10-18] MEDS: SPIRONOLACTONE 25 MG (ALDACTONE) TAB PO SCH (08:43)
[2018-10-18] MEDS: DILTIAZEM 120 MG (CARDIZEM CD) CAP PO SCH (08:44)
[2018-10-18] MEDS: LOSARTAN 50 MG (COZAAR) TAB PO SCH (08:44)
[2018-10-18] MEDS: DIPHENOXYLATE/ATROPINE 2.5MG/0.025MG (LOMOTIL) TAB PO SCH (08:44)
[2018-10-18] MEDS: DULoxetine 20 MG (CYMBALTA) CAP PO SCH ×2 (08:44→21:12)
[2018-10-18] MEDS: FUROSEMIDE 40 MG/4 ML INJ (LASIX) IVP SCH (10:16)
--- NOTE | 2018-10-18 10:25 | Physical Therapy Daily Note ---
PT Daily Note-Current Subjective Agrees to PT. Pt and report he did not sleep well last night due to poorly fitting bi-pap. Reports he is feeling better though. Wants to sit up in the chair. Mental Status Patient Orientation: Person, Place, Time, Situation Attachments: Oxygen, Head Catheter, IV Transfers Therapy Code Descriptions/Definitions Functional [place] Measure: 0=Not Assessed/NA 4=Minimal Assistance 1=Total Assistance 5=Supervision or Setup 2=Maximal Assistance 6=Modified [place] 3=Moderate Assistance 7=Complete [place] Therapy Quality Codes: 6 Independent with activity with or without an assistive device 5 Patient requires set up or clean up by helper. Patient completes activity by themselves 4 Supervision or touching assist (CGA). [place] provide cues , steadying assist 3 The helper provides less than half the effort to complete the activity 2 The helper provides more than half the effort to complete the activity 1 Dependent. The helper does all the effort to complete an activity 7 Patient refused to complete or attempt activity 9 The patient did not perform the activity before the current illness or injury 88 Not attempted due to Medical conditions or safety concerns Transfers (B, C, W/C) (FIM): 3 Supine to/from Sit: 3 (mod assist to come to sit EOB needing assist with legs and trunk; assist to scoot to the EOB with pt actively assisting. ) Pt able to sit EOB x 4 minutes with SBA. Used the sit to stand lift to transfer to the chair. Pt follows cues and is participatory with transfer. Oxygen monitored throughout and varies from 84-91%; pt given rest breaks and cues for deep breathing. Pt up in chair. Pt performed AP, LAQ and marching in chair to promote muscle activiation as well as ROM Weight Bearing Right Lower Extremity: Right Weight Bearing/Tolerated Left Lower Extremity: Left Weight Bearing/Tolerated Assessment Current Status: Good Progress Pt is cooperative, engaged, participatory and able to effectively participate in his treatment. He seems to have improved functional activitiy tolerance and improved participation with task completion. Progressing. PT Short Term Goals Short Term Goals Time Frame: Oct 26, 2018 Transfers (B,C,W/C) (FIM): 4 Gait (FIM): 1 Distance (FIM): 1=up to 49 ft Gait Distance Comment: 45' Gait Level of Assist: 4 Gait Assistive Device: FWW PT Nursing Home Goals Wood Block Artist Goals PT Nursing Home Goals Time Frame: Nov 09, 2018 Transfers (B,C,W/C) (FIM): 6 Sit to Lying (QC): 6 Lying-Sitting on Side/Bed(QC): 6 Sit to Stand (QC): 6 Rollin Roll Left to Right (QC): 6 Chair/[id number] Xfer(QC): 6 Car Transfer (QC): 6 Does the Patient Walk: Yes Gait (FIM): 2 Gait distance (FIM): 0=685-36 ft Distance: 125' Walk 10 feet (QC): 5 Walk 10ft-Uneven Surface(QC): 5 Walk 50ft with 2 Turns (QC): 5 Gait Level of Assist: 5 Gait Assistive Device: FWW Stairs (FIM): 2 # of Steps: 4 1 Step (curb) (QC): 5 4 Steps (QC): 5 12 Steps (QC): 9 Stairs Level Of Assist: 5 Picking up an Object (QC): 5 PT Plan Problem List Problem List: Activity Tolerance, Functional Strength, Safety, Balance, Gait, Transfer, Bed Mobility Treatment/Plan Treatment Plan: Continue Plan of Care Treatment Plan: Bed Mobility, Education, Functional Activity [place], Functional Strength, Gait, Safety, Therapeutic Exercise, Transfers Treatment Duration: Nov 09, 2018 Frequency: 11 times per week Estimated Hrs Per Day: .5 hour per day Patient and/or Family Agrees t: Yes Safety Risks/Education Patient Education: Transfer Techniques, Safety Issues Teaching Recipient: Patient Teaching Methods: Discussion Response to Teaching: Reinforcement Needed Time/GCodes Time In: 932 Time Out: 1000 Total Billed Treatment Time: 28 Total Billed Treatment visit FA 28 NERY DALEY PT Oct 18, 2018 10:25
--- NOTE | 2018-10-18 11:05 | Occupational Ther Daily Note ---
OT Current Status-Daily Note Subjective Pt sitting in chair with family present, agrees to therapy. Pt denies pain, states he did not sleep well last night and is tired. Mental Status/Objective Therapy Code Descriptions/Definitions Functional [place] Measure: 0=Not Assessed/NA 4=Minimal Assistance 1=Total Assistance 5=Supervision or Setup 2=Maximal Assistance 6=Modified [place] 3=Moderate Assistance 7=Complete [place] Attachments: Head Catheter, IV, Oxygen ADL-Treatment Pt completed grooming tasks while seated in chair. Washed face, brushed hair, and shaved with SBA and increased time. Rest breaks secondary to fatigue. Grooming (FIM): 5 Other Treatment Pt performed bilateral UE activity to increase strength and activity tolerance needed for ADLs and transfers. Pt performed AROM x10 reps at all joints. Rest breaks taken between exercises secondary to decreased activity tolerance. Cues for breathing. 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 Pt sitting in chair with needs met and family present after session. OT Short Term Goals Short Term Goals Time Frame: Oct 25, 2018 Grooming(FIM): 4 Bathing(FIM): 4 Lower Body Dressing(FIM): 3 Transfers (B,C,W/C) (FIM): 4 Additional Short Term Goals: 1-Demonstrate ADL Tasks, 2-Verbalize Understanding, 3-ImproveStrength/Gilbert 1=Demonstrate adherence to instructed precautions during ADL tasks. 2=Patient will verbalize/demonstrate understanding of assistive devices/modifications for ADL. 3=Patient will improve strength/tolerance for activity to enable patient to perform ADL's. OT Senior Living Goals Senior Living Goals Time Frame: Nov 08, 2018 Eating (FIM): 6 Grooming(FIM): 5 Bathing(FIM): 5 Upper Body Dressing(FIM): 5 Lower Body Dressing(FIM): 5 Toileting(FIM): 5 Transfers (B,C,W/C) (FIM): 5 Toilet/Commode Transfer(FIM): 5 Shower Transfer(FIM): 5 Additional Goals: 1-Demonstrate ADL Tasks, 2-Verbalize Understanding, 3- ImproveStrength/Gilbert 1=Demonstrate adherence to instructed precautions during ADL tasks. 2=Patient will verbalize/demonstrate understanding of assistive devices/modifications for ADL. 3=Patient will improve strength/tolerance for activity to enable patient to perform ADL's. OT Education/Plan Discharge Recommendations Plan/Recommendations: Continue POC Treatment Plan/Plan of Care Patient would benefit from OT for education, treatment and training to promote independence in ADL's, mobility, safety and/or upper extremity function for ADL's. Plan of Care: ADL Retraining, Caregiver Training, Concurrent Therapy, Functional Mobility, Group Exercise/Act as Ind, UE Funct Exercise/Act Treatment Duration: Nov 08, 2018 Frequency: 5 times per week Estimated Hrs Per Day: .5 hour per day Agreement: Yes Rehab Potential: Fair Time/GCodes Start Time: 10:07 Stop Time: 10:30 Total Time Billed (hr/min): 23 Billed Treatment Time 1 visit, EX(13minutes), ADL(10minutes) QUENTIN CLARKE OT Oct 18, 2018 11:04
[2018-10-18] MEDS: LIDOCAINE/PRILOCAINE (EMLA) 5 GM TUBE TP SCH ×2 (11:07→12:37)
[2018-10-18] MEDS: HYDROCORTISONE/PRAM 1% CREAM 30 GM TUBE TOP SCH ×3 (11:07→23:51)
--- NOTE | 2018-10-18 11:08 | NUR ---
CM/SS. Continuing intermittent review of patient status and progress. Unable to begin planning for next steps due to patient's multiple comorbidities and fluctuating condition/functioning overall. Support and assist as appropriate.
--- NOTE | 2018-10-18 11:52 | Physical Therapy Daily Note ---
PT Daily Note-Current Subjective Pt very tired and wanting to return to bed. Nursing reports he is unable to stand safely in sit to stand lift to return to bed. Transfers Therapy Code Descriptions/Definitions Functional [place] Measure: 0=Not Assessed/NA 4=Minimal Assistance 1=Total Assistance 5=Supervision or Setup 2=Maximal Assistance 6=Modified [place] 3=Moderate Assistance 7=Complete [place] Therapy Quality Codes: 6 Independent with activity with or without an assistive device 5 Patient requires set up or clean up by helper. Patient completes activity by themselves 4 Supervision or touching assist (CGA). [place] provide cues , steadying assist 3 The helper provides less than half the effort to complete the activity 2 The helper provides more than half the effort to complete the activity 1 Dependent. The helper does all the effort to complete an activity 7 Patient refused to complete or attempt activity 9 The patient did not perform the activity before the current illness or injury 88 Not attempted due to Medical conditions or safety concerns Weight Bearing Right Lower Extremity: Right Weight Bearing/Tolerated Left Lower Extremity: Left Weight Bearing/Tolerated Treatments Cece transfer to return to bed. Provided pt and staff training on use of cece and how it works for pt to safely return to bed. Pt was hoyered back to bed, incontinent of bowel; he was cleaned and positioned comfortably in bed. Pt verbalized understanding the the need for the cece at times and how it effectively provided safe care. Assessment Pt fatigued from being up inthe chair . Tolerated cece transfer well. Pt may toggle between sit to stand and cece for safety. PT Short Term Goals Short Term Goals Time Frame: Oct 26, 2018 Transfers (B,C,W/C) (FIM): 4 Gait (FIM): 1 Distance (FIM): 1=up to 49 ft Gait Distance Comment: 45' Gait Level of Assist: 4 Gait Assistive Device: FWW PT Ip Litigation Associate Goals Residential Goals PT Ip Litigation Associate Goals Time Frame: Nov 09, 2018 Transfers (B,C,W/C) (FIM): 6 Sit to Lying (QC): 6 Lying-Sitting on Side/Bed(QC): 6 Sit to Stand (QC): 6 Rollin Roll Left to Right (QC): 6 Chair/[id number] Xfer(QC): 6 Car Transfer (QC): 6 Does the Patient Walk: Yes Gait (FIM): 2 Gait distance (FIM): 1=029-35 ft Distance: 125' Walk 10 feet (QC): 5 Walk 10ft-Uneven Surface(QC): 5 Walk 50ft with 2 Turns (QC): 5 Gait Level of Assist: 5 Gait Assistive Device: FWW Stairs (FIM): 2 # of Steps: 4 1 Step (curb) (QC): 5 4 Steps (QC): 5 12 Steps (QC): 9 Stairs Level Of Assist: 5 Picking up an Object (QC): 5 PT Plan Problem List Problem List: Activity Tolerance, Functional Strength, Safety Treatment/Plan Treatment Plan: Continue Plan of Care Treatment Plan: Bed Mobility, Education, Functional Activity Gilbert, Functional Strength, Gait, Safety, Therapeutic Exercise, Transfers Treatment Duration: Nov 09, 2018 Frequency: 11 times per week Estimated Hrs Per Day: .5 hour per day Patient and/or Family Agrees t: Yes Time/GCodes Time In: 1035 Time Out: 1045 Total Billed Treatment Time: 10 Total Billed Treatment visit FA 10 NERY DALEY PT Oct 18, 2018 11:52
[2018-10-18 12:00] VITALS: BP 130/82
[2018-10-18] MEDS: HEParin DRIP 25000 UNIT/500ML 500 ML IV SCH ×2 (12:32→12:36)
--- NOTE | 2018-10-18 12:43 | Cardiology Progress Note ---
Cardiology SOAP Progress Note Subjective: Shortness of breath. Objective: I&O/Vital Signs 10/18/18 10/18/18 10/18/18 10/18/18 02:30 04:00 07:30 08:00 Temp 98.2 Pulse 79 65 Resp 30 25 B/P (MAP) 126/69 (88) Pulse Ox 92 91 93 O2 Delivery NIV Bilevel High Flow N/C High Flow N/C O2 Flow Rate 35.00 35.00 5.00 4.00 10/18/18 10/18/18 08:00 11:18 Temp 96.7 Pulse 76 Resp 22 B/P (MAP) 118/64 (82) Pulse Ox 94 95 O2 Delivery High Flow N/C High Flow N/C O2 Flow Rate 4.00 5.00 10/18/18 00:00 Intake Total 900 ml Output Total 2625 ml Balance -1725 ml Weight (Pounds): 174 Weight (Ounces): 4.0 Weight (Calculated Kilograms): 79.222845 Constitutional: AAO x 3, apparent distress Respiratory: accessory muscle use, chest is bilaterally symmetric, lungs clear to auscultation Cardiovascular: regular rate-rhythm; No irregularly irregular, No extra beats, No parasternal heave is noted, No JVD, No edema, No bradycardia, No tachycardia, No point of maximal impulse, No cardiac thrills are palpable; S1 and S2; No gallop/S3, No gallop/S4, No diastolic murmur, No systolic murmur, No friction rub, No click, No other Gastrointestional: No tender, No soft, No round, No distended, No pulsatile mass, No organomegaly, No guarding, No rebound, No tenderness, No hernia, No mass, No audible bowel sounds, No abnormal bowel sounds, No abdominal bruits, No spleenomegaly, No other Extremities: No normal range of motion, No non-tender, No normal inspection, No pedal edema, No calf tenderness, No normal capillary refill, No pelvis stable, No calf tenderness, No inflammation, No pedal edema, No slow capillary refill, No swelling, No other, No abrasion, No clubbing, No cyanosis, No ecchymosis, No laceration, No no lower extremity edema bilateral, No significant edema, No tenderness, No wound Neurologic/Psychiatric: no motor/sensory deficits, alert, normal mood/affect, oriented x 3 Results/Procedures: Labs Laboratory Tests 10/17/18 16:20: Glucometer 252H 10/17/18 20:53: Glucometer 191H 10/18/18 05:50: White Blood Count 9.9, Red Blood Count 3.75L, Hemoglobin 10.8L, Hematocrit 33L, Mean Corpuscular Volume 88, Mean Corpuscular Hemoglobin 29, Mean Corpuscular Hemoglobin Concent 33, Red Cell Distribution Width 16.4H, Platelet Count 388, Me an Platelet Volume 9.7, Neutrophils (%) (Auto) 71, Lymphocytes (%) (Auto) 17, Monocytes (%) (Auto) 7, Eosinophils (%) (Auto) 5, Basophils (%) (Auto) 1, Neutrophils # (Auto) 7.0, Lymphocytes # (Auto) 1.7, Monocytes # (Auto) 0.7, Eosinophils # (Auto) 0.5H, Basophils # (Auto) 0.1, Prothrombin Time 15.9H, INR Comment 1.2, Activated Partial Thromboplast Time 93H, Sodium Level 133L, Potassium Level 4.1, Chloride Level 99, Carbon Dioxide Level 26, Anion Gap 8, Blood Urea Nitrogen 11, Creatinine 0.78, Estimat Glomerular Filtration Rate > 60, BUN/Creatinine Ratio 14, Glucose Level 108H, Calcium Level 8.9, Phosphorus Level 3.2, Magnesium Level 1.5L 10/18/18 06:00: Glucometer 113H 10/18/18 11:13: Glucometer 211H Microbiology 10/17/18 Gram Stain - Final, Resulted 10/17/18 Sputum Culture, Resulted Pending A/P: Assessment/Dx: pulmonary embolism, pulmonary hemorrhage. Weakness and malaise and low grade fever and leucocytosis, systemic infection suspected, managed by Dr Saravia Relatively low bp lately necessitating d/c diltiazem and reduction in beta- sita. BP has since been better Hemoptysis and pulmonary hemorrhage necessitating discontinuation of Eliquis and aspirin in mid-August 2018; low-dose aspirin reinitiated on 10/01/18 Echo of 09/19/18: LVEF 60-65%, biatrial enlargement, mod MR, mild to mod TR, RVSP 45 mmHg 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 Cardiac cath from December 30, 2013 in which successful GAURI x 2, one to the proximal and one to the mid vessel LAD, was done. 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 Pacemaker currently in the VVIR mode, due to permanent atrial fib. The patient had a pulse generator change out on 12/18/2011. The device is functioning normally per last interrogation of September 23, 2018 (DIMITRIOS estimate 11 months) History of ulcerative colitis, being managed by Dr. Parsons and Dr. Seymour Stroke prophylaxis with Eliquis - currently being held d/t hemoptysis Sleep apnea for which he is following with Dr Mijares - Bi-pap therapy Hyperlipidemia being treated with rosuvastatin. Mild carotid arterial disease that has been followed by Dr. Mcdaniel History of cholecystectomy. 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 May consider watchman device as an outpatient for stroke prevention in a patient with atrial fibrillation. * Pulmonary embolism, on IV heparin, consider positioning to Coumadin. We are not considering IVC filter. Discussed with the patient and family. Dr. Parsons agrees as well. Currently the patient is improving and lower extremity ultrasound did not show any significant DVT. Thank you for your consultation. Please call me if you have any questions. Naren Raines MD, FACP, FACC, FSCAI, FHRS, CCDS Interventional Cardiology Cardiac Electrophysiology Vascular Medicine and Endovascular Interventions Deepak RAINES MD Oct 18, 2018 12:43 pm
--- NOTE | 2018-10-18 14:44 | NUR ---
ROBIN NOTE: still have not heard from [facility] for continued authorized days, so called number on card...unsure of the name of the appliance service representative but she says that "it shows here that it is authorized", I replied that yes, but I was supposed to submit clinical information yesterday which I did and have not heard when to resubmit for continued stay days. She says "you can submit on line and someone will definitely get in touch with you.
[2018-10-18] MEDS ORDERED: RT-ALBUTEROL/IPRATROPIUM 3 ML (DUONEB) VIAL INH SCH (16:00)
[2018-10-18] MEDS: RT-ALBUTEROL/IPRATROPIUM 3 ML (DUONEB) VIAL INH PRN (16:08)
[2018-10-18 16:32] VITALS: BP 139/85
[2018-10-18] MEDS: TAMSULOSIN 0.4 MG (FLOMAX) CAP PO SCH (16:49)
[2018-10-18] MEDS ORDERED: FUROSEMIDE 40 MG/4 ML INJ (LASIX) IVP ONE (17:00)
[2018-10-18 20:20] VITALS: BP 138/88
[2018-10-18] MEDS ORDERED: LIDOCAINE JELLY 2% (XYLOCAINE) 5 ML TUBE TOP SCH (21:00)
[2018-10-18] MEDS: MESALAMINE PO SCH (21:12)
[2018-10-18] MEDS: traZODone 50 MG (DESYREL) TAB PO SCH (21:12)
[2018-10-19] VITALS (8 sets, daily range): BP systolic 94–126; BP diastolic 56–73
[2018-10-19] MEDS: RT-ALBUTEROL/IPRATROPIUM 3 ML (DUONEB) VIAL INH SCH ×5 (02:24→22:54)
[2018-10-19 03:55] LABS: BASOPHILS # (AUTO) 0.1 10^3/uL (0.0-0.1); BASOPHILS % (AUTO) 1 % (0-10); EOSINOPHILS # (AUTO) 0.5 10^3/uL (0.0-0.3); EOSINOPHILS % (AUTO) 4 % (0-10); HEMATOCRIT 33 % (40-54); HEMOGLOBIN 10.5 G/DL (13.3-17.7); LYMPHOCYTES # (AUTO) 2.5 X 10^3 (1.0-4.0); LYMPHOCYTES % (AUTO) 18 % (12-44); MEAN CORPUSCULAR HEMOGLOBIN 28 PG (25-34); MEAN CORPUSCULAR HGB CONC 32 G/DL (32-36); MEAN CORPUSCULAR VOLUME 88 FL (80-99); MEAN PLATELET VOLUME 9.6 FL (7.4-10.4); MONOCYTES # (AUTO) 1.2 X 10^3 (0.0-1.0); MONOCYTES % (AUTO) 9 % (0-12); NEUTROPHILS # (AUTO) 9.6 X 10^3 (1.8-7.8); NEUTROPHILS % (AUTO) 69 % (42-75); PLATELET COUNT 465 10^3/uL (130-400); RED CELL DISTRIBUTION WIDTH 17.2 % (10.0-14.5); WHITE BLOOD COUNT 13.9 10^3/uL (4.3-11.0)
[2018-10-19 04:07] LABS: INR 1.2 (0.8-1.4); PROTHROMBIN TIME PATIENT 15.8 SEC (12.2-14.7)
[2018-10-19 04:14] LABS: BUN/CREATININE RATIO 14; CALCIUM 9.2 MG/DL (8.5-10.1); CARBON DIOXIDE 25 MMOL/L (21-32); CHLORIDE 96 MMOL/L (98-107); CREATININE SERUM 0.84 MG/DL (0.60-1.30); GFR ESTIMATED > 60; GLUCOSE 149 MG/DL (70-105); MAGNESIUM 1.3 MG/DL (1.8-2.4); POTASSIUM 4.7 MMOL/L (3.6-5.0); SODIUM 133 MMOL/L (135-145)
--- NOTE | 2018-10-19 04:21 | NUR ---
APTT 83 THIS AM AND HEPARIN GTT REMAINS THE SAME RATE.
[2018-10-19] MEDS: MEROPENEM 500 MG in WATER (STERILE) FOR INJECTION 10 ML IV SCH ×4 (04:29→22:28)
[2018-10-19] MEDS: inSUlin ASPART (NovoLOG) 1 UNIT/0.01 ML (CHARGE PER UNIT) SC SCH ×4 (05:02→21:29)
[2018-10-19] MEDS: KCL 10 MEQ TAB (MICRO K) PO SCH ×2 (06:02→17:49)
[2018-10-19] MEDS: PANTOPRAZOLE 40 MG (PROTONIX) TAB PO SCH (06:02)
[2018-10-19] MEDS: LACTOBACILLUS ACIDOPHILUS (PROBIOTIC) CAPSULE PO SCH ×2 (06:02→17:49)
[2018-10-19] MEDS: HEParin DRIP 25000 UNIT/500ML 500 ML IV SCH (06:21)
[2018-10-19] MEDS: LOSARTAN 50 MG (COZAAR) TAB PO SCH (08:42)
[2018-10-19] MEDS: DILTIAZEM 120 MG (CARDIZEM CD) CAP PO SCH (08:42)
[2018-10-19] MEDS: DULoxetine 20 MG (CYMBALTA) CAP PO SCH ×2 (08:42→20:34)
[2018-10-19] MEDS: DIPHENOXYLATE/ATROPINE 2.5MG/0.025MG (LOMOTIL) TAB PO SCH (08:42)
[2018-10-19] MEDS: SPIRONOLACTONE 25 MG (ALDACTONE) TAB PO SCH (08:42)
[2018-10-19] MEDS: meTOprolol TARTRATE 25 MG (LOPRESSOR) TABLET PO SCH ×2 (08:42→20:34)
[2018-10-19] MEDS: FUROSEMIDE 40 MG/4 ML INJ (LASIX) IVP SCH (08:42)
[2018-10-19] MEDS ORDERED: LIDOCAINE JELLY 2% (XYLOCAINE) 5 ML TUBE TOP PRN (08:45)
[2018-10-19] MEDS: HYDROCORTISONE/PRAM 1% CREAM 30 GM TUBE TOP SCH ×3 (08:51→20:36)
--- NOTE | 2018-10-19 08:57 | Pulmonary Progress Note ---
Sepsis Event Evaluation Height, Weight, BMI Height: 5'6.00" Weight: 174lbs. 4.0oz. 79.559905je; 33.1 BMI Method:Stated Exam Exam Vital Signs Date Time Temp Pulse Resp B/P (MAP) Pulse Ox O2 Delivery O2 Flow Rate FiO2 10/19/18 08:00 97.9 80 22 126/72 (90) 91 Nasal Cannula 4.00 10/19/18 06:24 77 29 92 35.00 10/19/18 05:59 90 High Flow N/C 3.00 10/19/18 04:00 97.1 70 25 124/73 (90) 93 Nasal Cannula 4.00 10/19/18 02:24 97 High Flow N/C 4.00 10/19/18 00:00 98.6 76 22 112/71 (85) 96 NIV Bilevel 35.00 10/18/18 22:28 94 NIV Bilevel 4.00 10/18/18 20:20 98.9 68 28 138/88 (105) 95 High Flow N/C 4.00 10/18/18 20:00 High Flow N/C 4.00 10/18/18 18:29 90 High Flow N/C 4.00 10/18/18 16:32 97.8 71 26 139/85 (103) 95 High Flow N/C 4.00 10/18/18 16:09 93 High Flow N/C 4.00 10/18/18 12:00 98.2 83 22 130/82 (98) 94 High Flow N/C 4.00 10/18/18 11:18 95 High Flow N/C 5.00 I & O 10/19/18 07:00 Intake Total 1250 ml Output Total 2550 ml Balance -1300 ml Height & Weight Height: 5'6.00" Weight: 174lbs. 4.0oz. 79.722609ac; 33.1 BMI Method:Stated General Appearance: No Apparent Distress HEENT: PERRL/EOMI, TMs Normal, Normal ENT Inspection, Pharynx Normal Neck: Full Range of Motion, Supple Respiratory: Chest Non Tender, Other (Few scattered rhonchi noted with no wheezes breath sounds are coarse good air movement) Cardiovascular: Systolic Murmur (1-2/6 noted over the aortic outflow tract no diastolic murmurs noted.), Irregularly Irregular Extremity: Normal Capillary Refill, Normal Range of Motion, Non Tender, No Pedal Edema Neurologic/Psychiatric: Alert, Oriented x3 Skin: Warm/Dry, Pallor Results Lab Laboratory Tests 10/18/18 05:50 10/19/18 03:37 Assessment/Plan Assessment/Plan Acute bilateral PE -Continue heparin for now. start coumadin on Sunday -Pt developed pulmonary hemorrhage with Eliquis Kelbsiella PNA -currently on Merrem Pulmonary hemorrhage - resolved Afib Generalized weakness JUAN HESS DO Oct 19, 2018 08:57
--- NOTE | 2018-10-19 12:36 | Progress Note - Hospitalist ---
Subjective HPI/CC On Admission Date Seen by Provider: Oct 19, 2018 Time Seen by Provider: 11:30 Subjective/Events-last exam Patient doing better Checked meds and labs Maintained O2 Family at bedside No pain is reported Appears more stable Review of Systems General: Fatigue Pulmonary: Dyspnea Gastrointestinal: Diarrhea Objective Exam Vital Signs Vital Signs Date Time Temp Pulse Resp B/P (MAP) Pulse Ox O2 Delivery O2 Flow Rate FiO2 10/19/18 12:38 85 95 36 10/19/18 12:00 97.8 22 96/69 (78) Nasal Cannula 4.00 Capillary Refill : Less Than 3 Seconds General Appearance: No Apparent Distress, WD/WN, Chronically ill HEENT: PERRL/EOMI, Normal ENT Inspection, Pharynx Normal Neck: Full Range of Motion, Supple Respiratory: Chest Non Tender, No Accessory Muscle Use, No Respiratory Distress, Decreased Breath Sounds Cardiovascular: Systolic Murmur (1-2/6 noted over the aortic outflow tract no diastolic murmurs noted.), Irregularly Irregular Gastrointestinal: Normal Bowel Sounds, No Pulsatile Mass, Non Tender, Soft Extremity: Normal Capillary Refill, Normal Range of Motion, Non Tender, No Pedal Edema Neurologic/Psychiatric: Alert, Oriented x3, No Motor/Sensory Deficits Skin: Warm/Dry, Pallor Results/Procedures Lab Laboratory Tests 10/19/18 03:37 Patient resulted labs reviewed. Assessment/Plan Assessment and Plan Assess & Plan/Chief Complaint Assessment per PCP: PULMONARY HEMORRHAGE KLEBSIELLA PNEUMONIA ENTEROBACTER AEROGENES PULMONARY EMBOLI - -RIGHT SIDED PULMONARY EDEMA ATRIAL FIBRILLATION HYPERTENSION HYPERLIPIDEMIA ULCERATIVE COLITIS GENERALIZED WEAKNESS INSOMNIA CHRONIC ANTICOAGULATION USE BPH CRITICAL CARE MYOPATHY EMPHYSEMA HYPOMAGNESEMIA HYPOKALEMIA DIARRHEA ANEMIA RECTAL PAIN Plan: Monitor closely O2 Slow progress PT/OT Critical Care Critically Ill Patient Diagnosis/Problems Diagnosis/Problems (1) Pulmonary embolism Status: Acute Qualifiers: Pulmonary embolism type: unspecified (2) Hx of CABG Status: Chronic (3) COPD (chronic obstructive pulmonary disease) Status: Chronic Qualifiers: COPD type: unspecified COPD Qualified Codes: J44.9 - Chronic obstructive pulmonary disease, unspecified (4) Leukocytosis Status: Acute Qualifiers: Leukocytosis type: leukemoid reaction Qualified Codes: D72.823 - Leukemoid reaction (5) Edema Status: Chronic Qualifiers: Edema type: unspecified Qualified Codes: R60.9 - Edema, unspecified (6) Fecal incontinence Status: Chronic Qualifiers: Fecal incontinence type: unspecified Qualified Codes: R15.9 - Full incontinence of feces (7) Ulcerative colitis Status: Chronic Qualifiers: Ulcerative colitis location: unspecified ulcerative colitis location Digestive disease complication type: unspecified complication Qualified Codes: K51.919 - Ulcerative colitis, unspecified with unspecified complications (8) Pulmonary hemorrhage Status: Chronic (9) Hypoxemia Status: Chronic (10) BRIDGER treated with BiPAP Status: Chronic (11) Pacemaker Status: Chronic (12) Respiratory distress Status: Resolved Resolution Date/Time: 09/08/18 @ 17:20 (13) Congestive heart failure, acute Status: Chronic Qualifiers: Heart failure type: unspecified Qualified Codes: I50.9 - Heart failure, unspecified Clinical Quality Measures DVT/VTE Risk/Contraindication: Risk Factor Score Per Nursin KOBI ESTEBAN DO Oct 19, 2018 12:36
--- NOTE | 2018-10-19 14:27 | Cardiology Progress Note ---
Cardiology SOAP Progress Note Subjective: Mild shortness of breath. Objective: I&O/Vital Signs 10/19/18 10/19/18 10/19/18 10/19/18 04:00 05:59 06:24 08:00 Temp 97.1 Pulse 70 77 Resp 25 29 B/P (MAP) 124/73 (90) Pulse Ox 93 90 92 O2 Delivery Nasal Cannula High Flow N/C High Flow N/C O2 Flow Rate 4.00 3.00 35.00 4.00 10/19/18 10/19/18 10/19/18 10/19/18 08:00 10:50 10:54 12:00 Temp 97.9 97.8 Pulse 80 80 74 Resp 22 22 B/P (MAP) 126/72 (90) 96/69 (78) Pulse Ox 91 95 95 94 O2 Delivery Nasal Cannula High Flow N/C Nasal Cannula O2 Flow Rate 4.00 4.00 4.00 FiO2 36 10/19/18 12:38 Pulse 85 Pulse Ox 95 FiO2 36 10/19/18 00:00 Intake Total 760 ml Output Total 2225 ml Balance -1465 ml Weight (Pounds): 174 Weight (Ounces): 4.0 Weight (Calculated Kilograms): 79.651504 Constitutional: AAO x 3, apparent distress Respiratory: accessory muscle use, chest is bilaterally symmetric, lungs clear to auscultation Cardiovascular: regular rate-rhythm; No irregularly irregular, No extra beats, No parasternal heave is noted, No JVD, No edema, No bradycardia, No tachycardia, No point of maximal impulse, No cardiac thrills are palpable; S1 and S2; No gallop/S3, No gallop/S4, No diastolic murmur, No systolic murmur, No friction rub, No click, No other Gastrointestional: No tender, No soft, No round, No distended, No pulsatile mass, No organomegaly, No guarding, No rebound, No tenderness, No hernia, No mass, No audible bowel sounds, No abnormal bowel sounds, No abdominal bruits, No spleenomegaly, No other Extremities: No normal range of motion, No non-tender, No normal inspection, No pedal edema, No calf tenderness, No normal capillary refill, No pelvis stable, No calf tenderness, No inflammation, No pedal edema, No slow capillary refill, No swelling, No other, No abrasion, No clubbing, No cyanosis, No ecchymosis, No laceration, No no lower extremity edema bilateral, No significant edema, No tenderness, No wound Neurologic/Psychiatric: no motor/sensory deficits, alert, normal mood/affect, oriented x 3 Results/Procedures: Labs Laboratory Tests 10/18/18 16:32: Glucometer 211H 10/18/18 21:17: Glucometer 195H 10/19/18 03:37: White Blood Count 13.9H, Red Blood Count 3.75L, Hemoglobin 10.5L, Hematocrit 33L , Mean Corpuscular Volume 88, Mean Corpuscular Hemoglobin 28, Mean Corpuscular Hemoglobin Concent 32, Red Cell Distribution Width 17.2H, Platelet Count 465H, Mean Platelet Volume 9.6, Neutrophils (%) (Auto) 69, Lymphocytes (%) (Auto) 18, Monocytes (%) (Auto) 9, Eosinophils (%) (Auto) 4, Basophils (%) (Auto) 1, Neutrophils # (Auto) 9.6H, Lymphocytes # (Auto) 2.5, Monocytes # (Auto) 1.2H, Eosinophils # (Auto) 0.5H, Basophils # (Auto) 0.1, Prothrombin Time 15.8H, INR Comment 1.2, Activated Partial Thromboplast Time 83H, Sodium Level 133L, Potassium Level 4.7, Chloride Level 96L, Carbon Dioxide Level 25, Anion Gap 12, Blood Urea Nitrogen 12, Creatinine 0.84, Estimat Glomerular Filtration Rate > 60, BUN/Creatinine Ratio 14, Glucose Level 149H, Calcium Level 9.2, Phosphorus Level 3.8, Magnesium Level 1.3L 10/19/18 04:39: Glucometer 167H 10/19/18 12:31: Glucometer 146H Microbiology 10/17/18 Gram Stain - Final, Resulted 10/17/18 Sputum Culture - Preliminary, Resulted Mixed Bacterial Bridget A/P: Assessment/Dx: pulmonary embolism, pulmonary hemorrhage. Weakness and malaise and low grade fever and leucocytosis, systemic infection suspected, managed by Dr Saravia Relatively low bp lately necessitating d/c diltiazem and reduction in beta-sita. BP has since been better Hemoptysis and pulmonary hemorrhage necessitating discontinuation of Eliquis and aspirin in mid-August 2018; low-dose aspirin reinitiated on 10/01/18 Echo of 09/19/18: LVEF 60-65%, biatrial enlargement, mod MR, mild to mod TR, RVSP 45 mmHg 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 Cardiac cath from December 30, 2013 in which successful GAURI x 2, one to the proximal and one to the mid vessel LAD, was done. 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 Pacemaker currently in the VVIR mode, due to permanent atrial fib. The patient had a pulse generator change out on 12/18/2011. The device is functioning normally per last interrogation of September 23, 2018 (DIMITRIOS estimate 11 months) History of ulcerative colitis, being managed by Dr. Parsons and Dr. Seymour Stroke prophylaxis with Eliquis - currently being held d/t hemoptysis Sleep apnea for which he is following with Dr Mijares - Bi-pap therapy Hyperlipidemia being treated with rosuvastatin. Mild carotid arterial disease that has been followed by Dr. Mcdaniel History of cholecystectomy. 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 May consider watchman device as an outpatient for stroke prev ention in a patient with atrial fibrillation. * Pulmonary embolism, on IV heparin, consider positioning to Coumadin. We are not considering IVC filter. Discussed with the patient and family. Dr. Parsons agrees as well. Currently the patient is improving and lower extremity ultrasound did not show any significant DVT. Thank you for your consultation. Please call me if you have any questions. Naren Raines MD, FACP, FACC, FSCAI, FHRS, CCDS Interventional Cardiology Cardiac Electrophysiology Vascular Medicine and Endovascular Interventions Deepak RAINES MD Oct 19, 2018 2:27 pm
--- NOTE | 2018-10-19 14:30 | Physical Therapy Daily Note ---
PT Daily Note-Current Subjective Pt denied pain. Pt states he is just very weak. LE weakness (L)>(R) per pt. Family present and supportive. Mental Status Patient Orientation: Person, Place, Situation Transfers Therapy Code Descriptions/Definitions Functional [place] Measure: 0=Not Assessed/NA 4=Minimal Assistance 1=Total Assistance 5=Supervision or Setup 2=Maximal Assistance 6=Modified [place] 3=Moderate Assistance 7=Complete [place] Therapy Quality Codes: 6 Independent with activity with or without an assistive device 5 Patient requires set up or clean up by helper. Patient completes activity by themselves 4 Supervision or touching assist (CGA). [place] provide cues , steadying assist 3 The helper provides less than half the effort to complete the activity 2 The helper provides more than half the effort to complete the activity 1 Dependent. The helper does all the effort to complete an activity 7 Patient refused to complete or attempt activity 9 The patient did not perform the activity before the current illness or in jury 88 Not attempted due to Medical conditions or safety concerns Weight Bearing Right Lower Extremity: Right Weight Bearing/Tolerated Left Lower Extremity: Left Weight Bearing/Tolerated Treatments Ther ex: manual resistance applied for DF/PF, QS, heel slides, SAQ, knee flexion, hooklying hip abd, hip adduction x 20 each. AROM LTR and bridge all x 20. Pt mod A for rolling in bed. Cece lift bed-> recliner. Pt O2 per nasal ca nula. Pt resting comfortably in recliner. Assessment Current Status: Fair Progress Pt deconditioned, able to perform LE ther ex with manual resistance applied. Pt would benefit from continued therapy to increase strength and funtional mobility. Pt resting comfortably and all needs met. Call light in reach. PT Short Term Goals Short Term Goals Time Frame: Oct 26, 2018 Transfers (B,C,W/C) (FIM): 4 Gait (FIM): 1 Distance (FIM): 1=up to 49 ft Gait Distance Comment: 45' Gait Level of Assist: 4 Gait Assistive Device: FWW PT Traverse Rod Assembler Goals Mcc Goals PT Traverse Rod Assembler Goals Time Frame: Nov 09, 2018 Transfers (B,C,W/C) (FIM): 6 Sit to Lying (QC): 6 Lying-Sitting on Side/Bed(QC): 6 Sit to Stand (QC): 6 Rollin Roll Left to Right (QC): 6 Chair/Bxa-el-Nxpol Xfer(QC): 6 Car Transfer (QC): 6 Does the Patient Walk: Yes Gait (FIM): 2 Gait distance (FIM): 9=766-40 ft Distance: 125' Walk 10 feet (QC): 5 Walk 10ft-Uneven Surface(QC): 5 Walk 50ft with 2 Turns (QC): 5 Gait Level of Assist: 5 Gait Assistive Device: FWW Stairs (FIM): 2 # of Steps: 4 1 Step (curb) (QC): 5 4 Steps (QC): 5 12 Steps (QC): 9 Stairs Level Of Assist: 5 Picking up an Object (QC): 5 PT Plan Treatment/Plan Treatment Plan: Continue Plan of Care Treatment Plan: Bed Mobility, Education, Functional Activity Gilbert, Functional Strength, Gait, Safety, Therapeutic Exercise, Transfers Treatment Duration: Nov 09, 2018 Frequency: 11 times per week Estimated Hrs Per Day: .5 hour per day Patient and/or Family Agrees t: Yes Time/GCodes Time In: 1100 Time Out: 1130 Total Billed Treatment Time: 30 Total Billed Treatment 1, ex x 15', FA x 15' GAVIOTA GRAHAM CPTA Oct 19, 2018 14:30
[2018-10-19] MEDS: TAMSULOSIN 0.4 MG (FLOMAX) CAP PO SCH (17:49)
[2018-10-19] MEDS: MESALAMINE PO SCH (20:34)
[2018-10-19] MEDS: traZODone 50 MG (DESYREL) TAB PO SCH (20:34)
[2018-10-19] MEDS: ALPRAZolam 0.25 MG (XANAX) TAB PO PRN (20:34)
[2018-10-20 00:46] VITALS: BP 105/70
[2018-10-20] MEDS: HEParin DRIP 25000 UNIT/500ML 500 ML IV SCH (01:47)
[2018-10-20] MEDS: RT-ALBUTEROL/IPRATROPIUM 3 ML (DUONEB) VIAL INH SCH ×6 (02:30→22:38)
[2018-10-20 04:00] VITALS: BP 117/93
[2018-10-20] MEDS: MEROPENEM 500 MG in WATER (STERILE) FOR INJECTION 10 ML IV SCH ×4 (04:54→23:39)
[2018-10-20 05:38] LABS: BASOPHILS # (AUTO) 0.2 10^3/uL (0.0-0.1); BASOPHILS % (AUTO) 1 % (0-10); EOSINOPHILS # (AUTO) 0.5 10^3/uL (0.0-0.3); EOSINOPHILS % (AUTO) 4 % (0-10); HEMATOCRIT 34 % (40-54); HEMOGLOBIN 10.9 G/DL (13.3-17.7); LYMPHOCYTES # (AUTO) 2.4 X 10^3 (1.0-4.0); LYMPHOCYTES % (AUTO) 18 % (12-44); MEAN CORPUSCULAR HEMOGLOBIN 29 PG (25-34); MEAN CORPUSCULAR HGB CONC 33 G/DL (32-36); MEAN CORPUSCULAR VOLUME 88 FL (80-99); MEAN PLATELET VOLUME 9.6 FL (7.4-10.4); MONOCYTES # (AUTO) 1.3 X 10^3 (0.0-1.0); MONOCYTES % (AUTO) 10 % (0-12); NEUTROPHILS # (AUTO) 9.3 X 10^3 (1.8-7.8); NEUTROPHILS % (AUTO) 68 % (42-75); PLATELET COUNT 435 10^3/uL (130-400); RED CELL DISTRIBUTION WIDTH 17.2 % (10.0-14.5); WHITE BLOOD COUNT 13.6 10^3/uL (4.3-11.0)
[2018-10-20 05:46] LABS: INR 1.1 (0.8-1.4); PROTHROMBIN TIME PATIENT 14.8 SEC (12.2-14.7)
[2018-10-20 05:51] LABS: BUN/CREATININE RATIO 16; CALCIUM 9.3 MG/DL (8.5-10.1); CARBON DIOXIDE 25 MMOL/L (21-32); CHLORIDE 97 MMOL/L (98-107); CREATININE SERUM 0.81 MG/DL (0.60-1.30); GFR ESTIMATED > 60; GLUCOSE 125 MG/DL (70-105); MAGNESIUM 1.3 MG/DL (1.8-2.4); PHOSPHORUS 3.3 MG/DL (2.3-4.7); POTASSIUM 4.9 MMOL/L (3.6-5.0); SODIUM 131 MMOL/L (135-145)
[2018-10-20 06:35] LABS: ANISOCYTOSIS SLIGHT; EOSINOPHILS % (MANUAL) 3 %; LYMPHOCYTES % (MANUAL) 20 %; METAMYELOCYTES % 8 %; MONOCYTES % (MANUAL) 7 %; NEUTROPHILS % (MANUAL) 62 %
[2018-10-20] MEDS: PANTOPRAZOLE 40 MG (PROTONIX) TAB PO SCH (06:43)
[2018-10-20] MEDS: KCL 10 MEQ TAB (MICRO K) PO SCH ×2 (06:43→16:17)
[2018-10-20] MEDS: LACTOBACILLUS ACIDOPHILUS (PROBIOTIC) CAPSULE PO SCH ×2 (06:43→16:17)
[2018-10-20] MEDS: inSUlin ASPART (NovoLOG) 1 UNIT/0.01 ML (CHARGE PER UNIT) SC SCH ×4 (06:44→21:48)
--- NOTE | 2018-10-20 07:29 | Pulmonary Progress Note ---
Sepsis Event Evaluation Height, Weight, BMI Height: 5'6.00" Weight: 174lbs. 4.0oz. 79.593726kf; 33.1 BMI Method:Stated Exam Exam Vital Signs Date Time Temp Pulse Resp B/P (MAP) Pulse Ox O2 Delivery O2 Flow Rate FiO2 10/20/18 04:00 96.6 70 22 117/93 (101) 95 NIV Bilevel 35.00 10/20/18 02:31 95 NIV Bilevel 4.00 10/20/18 00:46 97.2 66 25 105/70 (82) 98 NIV Bilevel 35.00 10/19/18 22:57 95 NIV Bilevel 4.00 10/19/18 20:00 High Flow N/C 4.00 10/19/18 19:55 98.6 66 26 108/68 (81) 94 High Flow N/C 4.00 10/19/18 18:56 91 High Flow N/C 4.00 10/19/18 16:23 97.8 73 24 94/56 (69) 93 Nasal Cannula 4.00 10/19/18 15:00 92 High Flow N/C 4.00 10/19/18 12:38 85 95 36 10/19/18 12:00 97.8 74 22 96/69 (78) 94 Nasal Cannula 4.00 10/19/18 10:54 80 95 36 10/19/18 10:50 95 High Flow N/C 4.00 10/19/18 08:00 97.9 80 22 126/72 (90) 91 Nasal Cannula 4.00 10/19/18 08:00 High Flow N/C 4.00 I & O 10/20/18 07:00 Intake Total 1850 ml Output Total 2875 ml Balance -1025 ml Height & Weight Height: 5'6.00" Weight: 174lbs. 4.0oz. 79.739532hf; 33.1 BMI Method:Stated General Appearance: No Apparent Distress, WD/WN, Chronically ill HEENT: PERRL/EOMI, Normal ENT Inspection, Pharynx Normal Neck: Full Range of Motion, Supple Respiratory: Chest Non Tender, No Accessory Muscle Use, No Respiratory Dis tress, Decreased Breath Sounds Cardiovascular: Systolic Murmur (1-2/6 noted over the aortic outflow tract no diastolic murmurs noted.), Irregularly Irregular Extremity: Normal Capillary Refill, Normal Range of Motion, Non Tender, No Pedal Edema Neurologic/Psychiatric: Alert, Oriented x3, No Motor/Sensory Deficits Skin: Warm/Dry, Pallor Results Lab Laboratory Tests 10/19/18 03:37 10/20/18 05:20 Assessment/Plan Assessment/Plan Acute bilateral PE -Continue heparin for now. start coumadin bridge today -Pt developed pulmonary hemorrhage with Eliquis Klebsiella PNA -currently on Merrem Pulmonary hemorrhage - resolved Afib Generalized weakness JUAN HESS DO Oct 20, 2018 07:29
--- NOTE | 2018-10-20 07:39 | NUR ---
PATIENT WORE HOME UNIT FOR APPROXIMATELY 9 HOURS AND FEELS BETTER TODAY! PATIENT IS ON 4 L NC AND O2 SAT OF 93%; RT TRIED TO DECREASE O2 TO 3 L BUT AFTER SVN BREATHING TX VIA MASK, THEN 10 BREATHS ON THE AEROBIKA AND IS PATIENT SAT DECREASED TO 87% AND PATIENT APPEARED SOA SO RT INCREASED O2 BACK UP TO PREVIOUS 4 L. WILL CONTINUE TO TITRATE O2 THROUGHOUT THE DAY IF POSSIBLE. PATIENT IS GETTING SOA WHEN DOING THE SVN/AEROBIKA/IS SO RT SUGGESTED TO DO THE AEROBIKA WITHIN THE 1ST 30 MINS AND THE IS THE 2ND 30 MINS.
[2018-10-20 08:00] VITALS: BP 115/78
[2018-10-20] MEDS: DULoxetine 20 MG (CYMBALTA) CAP PO SCH ×2 (08:47→21:47)
[2018-10-20] MEDS: FUROSEMIDE 40 MG/4 ML INJ (LASIX) IVP SCH (08:47)
[2018-10-20] MEDS: DILTIAZEM 120 MG (CARDIZEM CD) CAP PO SCH (08:48)
[2018-10-20] MEDS: DIPHENOXYLATE/ATROPINE 2.5MG/0.025MG (LOMOTIL) TAB PO SCH (08:48)
[2018-10-20] MEDS: SPIRONOLACTONE 25 MG (ALDACTONE) TAB PO SCH (08:48)
[2018-10-20] MEDS: HYDROCORTISONE/PRAM 1% CREAM 30 GM TUBE TOP SCH ×3 (09:36→21:50)
[2018-10-20] MEDS: LOSARTAN 50 MG (COZAAR) TAB PO SCH (11:10)
[2018-10-20] MEDS: meTOprolol TARTRATE 25 MG (LOPRESSOR) TABLET PO SCH ×2 (11:14→21:46)
--- NOTE | 2018-10-20 11:20 | Progress Note - Hospitalist ---
Subjective HPI/CC On Admission Date Seen by Provider: Oct 20, 2018 Time Seen by Provider: 12:00 Subjective/Events-last exam Shaved today with the help of his Maintain on oxygen Heparin maintain and Coumadin will be restarted tonight Reviewed labs Leukocytosis remains Coarse breath sounds noted and it is a subtle finding in the bases today Overall appears to be very frail and weak Review of Systems General: Fatigue Objective Exam Vital Signs Vital Signs Date Time Temp Pulse Resp B/P (MAP) Pulse Ox O2 Delivery O2 Flow Rate FiO2 10/20/18 12:00 97.2 78 20 123/80 (94) 93 Nasal Cannula 4.00 10/19/18 12:38 36 Capillary Refill : Less Than 3 Seconds General Appearance: No Apparent Distress, WD/WN, Chronically ill HEENT: PERRL/EOMI, Normal ENT Inspection, Pharynx Normal Neck: Full Range of Motion, Supple Respiratory: Chest Non Tender, No Accessory Muscle Use, No Respiratory Distress, Decreased Breath Sounds Cardiovascular: Systolic Murmur (1-2/6 noted over the aortic outflow tract no diastolic murmurs noted.), Irregularly Irregular Gastrointestinal: Normal Bowel Sounds, No Pulsatile Mass, Non Tender, Soft Extremity: Normal Capillary Refill, Normal Range of Motion, Non Tender, No Pedal Edema Neurologic/Psychiatric: Alert, Oriented x3, No Motor/Sensory Deficits Skin: Warm/Dry, Pallor Results/Procedures Lab Laboratory Tests 10/20/18 05:20 Patient resulted labs reviewed. Assessment/Plan Assessment and Plan Assess & Plan/Chief Complaint Assessment per PCP: PULMONARY HEMORRHAGE KLEBSIELLA PNEUMONIA ENTEROBACTER AEROGENES PULMONARY EMBOLI - -RIGHT SIDED PULMONARY EDEMA ATRIAL FIBRILLATION HYPERTENSION HYPERLIPIDEMIA ULCERATIVE COLITIS GENERALIZED WEAKNESS INSOMNIA CHRONIC ANTICOAGULATION USE BPH CRITICAL CARE MYOPATHY EMPHYSEMA HYPOMAGNESEMIA HYPOKALEMIA DIARRHEA ANEMIA RECTAL PAIN Plan: Monitor closely O2 Slow progress PT/OT Coumadin today Critical Care Critically Ill Patient Diagnosis/Problems Diagnosis/Problems (1) Pulmonary embolism Status: Acute Qualifiers: Pulmonary embolism type: unspecified (2) Hx of CABG Status: Chronic (3) COPD (chronic obstructive pulmonary disease) Status: Chronic Qualifiers: COPD type: unspecified COPD Qualified Codes: J44.9 - Chronic obstructive pulmonary disease, unspecified (4) Leukocytosis Status: Acute Qualifiers: Leukocytosis type: leukemoid reaction Qualified Codes: D72.823 - Leukemoid reaction (5) Edema Status: Chronic Qualifiers: Edema type: unspecified Qualified Codes: R60.9 - Edema, unspecified (6) Fecal incontinence Status: Chronic Qualifiers: Fecal incontinence type: unspecified Qualified Codes: R15.9 - Full incontinence of feces (7) Ulcerative colitis Status: Chronic Qualifiers: Ulcerative colitis location: unspecified ulcerative colitis location Digestive disease complication type: unspecified complication Qualified Codes: K51.919 - Ulcerative colitis, unspecified with unspecified complications (8) Pulmonary hemorrhage Status: Chronic (9) Hypoxemia Status: Chronic (10) BRIDGER treated with BiPAP Status: Chronic (11) Pacemaker Status: Chronic (12) Respiratory distress Status: Resolved Resolution Date/Time: 09/08/18 @ 17:20 (13) Congestive heart failure, acute Status: Chronic Qualifiers: Heart failure type: unspecified Qualified Codes: I50.9 - Heart failure, unspecified Clinical Quality Measures DVT/VTE Risk/Contraindication: Risk Factor Score Per Nursin KOBI ESTEBAN DO Oct 20, 2018 11:20
[2018-10-20] MEDS: DIPHENOXYLATE/ATROPINE 2.5MG/0.025MG (LOMOTIL) TAB PO PRN (11:32)
[2018-10-20 12:00] VITALS: BP 123/80
[2018-10-20 16:03] VITALS: BP 103/67
[2018-10-20] MEDS: TAMSULOSIN 0.4 MG (FLOMAX) CAP PO SCH (17:47)
[2018-10-20] MEDS: warFARin 5 MG (COUMADIN) TAB PO SCH (17:47)
--- NOTE | 2018-10-20 18:00 | Cardiology Progress Note ---
Cardiology SOAP Progress Note Subjective: Improving shortness of breath. Objective: I&O/Vital Signs 10/20/18 10/20/18 10/20/18 10/20/18 07:23 08:00 08:00 11:01 Temp 97.0 Pulse 75 Resp 22 B/P (MAP) 115/78 (90) Pulse Ox 93 96 93 O2 Delivery Nasal Cannula Nasal Cannula High Flow N/C Nasal Cannula O2 Flow Rate 4.00 4.00 4.00 4.00 10/20/18 10/20/18 10/20/18 12:00 14:53 16:03 Temp 97.2 97.2 Pulse 78 64 Resp 20 22 B/P (MAP) 123/80 (94) 103/67 (79) Pulse Ox 93 92 95 O2 Delivery Nasal Cannula Nasal Cannula Nasal Cannula O2 Flow Rate 4.00 3.00 3.00 10/20/18 00:00 Intake Total 1750 ml Output Total 2400 ml Balance -650 ml Weight (Pounds): 174 Weight (Ounces): 4.0 Weight (Calculated Kilograms): 79.230157 Constitutional: AAO x 3, apparent distress Respiratory: accessory muscle use, chest is bilaterally symmetric, lungs clear to auscultation Cardiovascular: regular rate-rhythm; No irregularly irregular, No extra beats, No parasternal heave is noted, No JVD, No edema, No bradycardia, No tachycardia, No point of maximal impulse, No cardiac thrills are palpable; S1 and S2; No gallop/S3, No gallop/S4, No diastolic murmur, No systolic murmur, No friction rub, No click, No other Gastrointestional: No tender, No soft, No round, No distended, No pulsatile mass, No organomegaly, No guarding, No rebound, No tenderness, No hernia, No mass, No audible bowel sounds, No abnormal bowel sounds, No abdominal bruits, No spleenomegaly, No other Extremities: No normal range of motion, No non-tender, No normal inspection, No pedal edema, No calf tenderness, No normal capillary refill, No pelvis stable, No calf tenderness, No inflammation, No pedal edema, No slow capillary refill, No swelling, No other, No abrasion, No clubbing, No cyanosis, No ecchymosis, No laceration, No no lower extremity edema bilateral, No significant edema, No tenderness, No wound Neurologic/Psychiatric: no motor/sensory deficits, alert, normal mood/affect, oriented x 3 Results/Procedures: Labs Laboratory Tests 10/19/18 20:51: Glucometer 181H 10/20/18 05:20: White Blood Count 13.6H, Red Blood Count 3.81L, Hemoglobin 10.9L, Hematocrit 34L , Mean Corpuscular Volume 88, Mean Corpuscular Hemoglobin 29, Mean Corpuscular Hemoglobin Concent 33, Red Cell Distribution Width 17.2H, Platelet Count 435H, Mean Platelet Volume 9.6, Neutrophils (%) (Auto) 68, Lymphocytes (%) (Auto) 18, Monocytes (%) (Auto) 10, Eosinophils (%) (Auto) 4, Basophils (%) (Auto) 1, Neutrophils # (Auto) 9.3H, Lymphocytes # (Auto) 2.4, Monocytes # (Auto) 1.3H, Eosinophils # (Auto) 0.5H, Basophils # (Auto) 0.2H, Neutrophils % (Manual) 62, Lymphocytes % (Manual) 20, Monocytes % (Manual) 7, Eosinophils % (Manual) 3, Metamyelocytes % 8, Anisocytosis SLIGHT, Prothrombin Time 14.8H, INR Comment 1.1, Activated Partial Thromboplast Time 91H, Sodium Level 131L, Potassium Level 4.9, Chloride Level 97L, Carbon Dioxide Level 25, Anion Gap 9, Blood Urea Nitrogen 13, Creatinine 0.81, Estimat Glomerular Filtration Rate > 60, BUN/Creatinine Ratio 16, Glucose Level 125H, Calcium Level 9.3, Phosphorus Level 3.3, Magnesium Level 1.3L 10/20/18 05:58: Glucometer 141H 10/20/18 10:58: Glucometer 153H 10/20/18 16:08: Glucometer 171H Microbiology 10/17/18 Gram Stain - Final, Complete 10/17/18 Sputum Culture - Final, Complete Gram Pos Mixed Bacterial Bridget A/P: Assessment/Dx: pulmonary embolism, pulmonary hemorrhage. Weakness and malaise and low grade fever and leucocytosis, systemic infection suspected, managed by Dr Saravia Relatively low bp lately necessitating d/c diltiazem and reduction in beta- sita. BP has since been better Hemoptysis and pulmonary hemorrhage necessitating discontinuation of Eliquis and aspirin in mid-August 2018; low-dose aspirin reinitiated on 10/01/18 Echo of 09/19/18: LVEF 60-65%, biatrial enlargement, mod MR, mild to mod TR, RVSP 45 mmHg 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 Cardiac cath from December 30, 2013 in which successful GAURI x 2, one to the proximal and one to the mid vessel LAD, was done. 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 Pacemaker currently in the VVIR mode, due to permanent atrial fib. The patient had a pulse generator change out on 12/18/2011. The device is functioning normally per last interrogation of September 23, 2018 (DIMITRIOS estimate 11 months) History of ulcerative colitis, being managed by Dr. Parsons and Dr. Seymour Stroke prophylaxis with Eliquis - currently being held d/t hemoptysis Sleep apnea for which he is following with Dr Mijares - Bi-pap therapy Hyperlipidemia being treated with rosuvastatin. Mild carotid arterial disease that has been followed by Dr. Mcdaniel History of cholecystectomy. 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 May consider watchman device as an outpatient for stroke prevention in a patient with atrial fibrillation. * Pulmonary embolism, on IV heparin, consider positioning to Coumadin. We are not considering IVC filter. Discussed with the patient and family. Dr. Parsons agrees as well. Currently the patient is improving and lower extremity ultrasound did not show any significant DVT. Thank you for your consultation. Please call me if you have any questions. Naren Raines MD, FACP, FACC, FSCAI, FHRS, CCDS Interventional Cardiology Cardiac Electrophysiology Vascular Medicine and Endovascular Interventions Deepak RAINES MD Oct 20, 2018 18:00
[2018-10-20 20:21] VITALS: BP 125/62
[2018-10-20] MEDS: traZODone 50 MG (DESYREL) TAB PO SCH (21:46)
[2018-10-20] MEDS: ALPRAZolam 0.25 MG (XANAX) TAB PO PRN (21:46)
[2018-10-20] MEDS: diphenhydrAMINE 25 MG TAB (BENADRYL) PO PRN (21:46)
[2018-10-20] MEDS: MESALAMINE PO SCH (21:47)
[2018-10-21] VITALS: BP 119/73
[2018-10-21] MEDS: RT-ALBUTEROL/IPRATROPIUM 3 ML (DUONEB) VIAL INH SCH ×5 (03:04→22:52)
[2018-10-21 04:00] VITALS: BP 117/71
[2018-10-21] MEDS: MEROPENEM 500 MG in WATER (STERILE) FOR INJECTION 10 ML IV SCH ×4 (05:11→21:29)
[2018-10-21] MEDS: LACTOBACILLUS ACIDOPHILUS (PROBIOTIC) CAPSULE PO SCH ×2 (05:34→16:42)
[2018-10-21] MEDS: KCL 10 MEQ TAB (MICRO K) PO SCH ×2 (05:35→16:42)
[2018-10-21] MEDS: PANTOPRAZOLE 40 MG (PROTONIX) TAB PO SCH (05:35)
[2018-10-21] MEDS: inSUlin ASPART (NovoLOG) 1 UNIT/0.01 ML (CHARGE PER UNIT) SC SCH ×4 (05:36→21:36)
[2018-10-21 05:53] LABS: BASOPHILS # (AUTO) 0.1 10^3/uL (0.0-0.1); BASOPHILS % (AUTO) 1 % (0-10); EOSINOPHILS # (AUTO) 0.4 10^3/uL (0.0-0.3); EOSINOPHILS % (AUTO) 3 % (0-10); HEMATOCRIT 34 % (40-54); HEMOGLOBIN 11.1 G/DL (13.3-17.7); LYMPHOCYTES # (AUTO) 2.2 X 10^3 (1.0-4.0); LYMPHOCYTES % (AUTO) 18 % (12-44); MEAN CORPUSCULAR HGB CONC 33 G/DL (32-36); MEAN CORPUSCULAR VOLUME 88 FL (80-99); MEAN PLATELET VOLUME 9.6 FL (7.4-10.4); MONOCYTES # (AUTO) 1.5 X 10^3 (0.0-1.0); MONOCYTES % (AUTO) 12 % (0-12); NEUTROPHILS # (AUTO) 8.2 X 10^3 (1.8-7.8); NEUTROPHILS % (AUTO) 66 % (42-75); PLATELET COUNT 453 10^3/uL (130-400); RED CELL DISTRIBUTION WIDTH 17.4 % (10.0-14.5); WHITE BLOOD COUNT 12.4 10^3/uL (4.3-11.0)
[2018-10-21 05:55] LABS: MEAN CORPUSCULAR HEMOGLOBIN 28 PG (25-34)
[2018-10-21 06:15] LABS: INR 1.1 (0.8-1.4); PROTHROMBIN TIME PATIENT 14.7 SEC (12.2-14.7)
[2018-10-21 06:20] LABS: BUN/CREATININE RATIO 18; CALCIUM 9.9 MG/DL (8.5-10.1); CARBON DIOXIDE 24 MMOL/L (21-32); CHLORIDE 99 MMOL/L (98-107); CREATININE SERUM 0.82 MG/DL (0.60-1.30); GFR ESTIMATED > 60; GLUCOSE 87 MG/DL (70-105); MAGNESIUM 1.6 MG/DL (1.8-2.4); POTASSIUM 4.7 MMOL/L (3.6-5.0); SODIUM 133 MMOL/L (135-145)
[2018-10-21] MEDS: SPIRONOLACTONE 25 MG (ALDACTONE) TAB PO SCH (07:56)
[2018-10-21] MEDS: meTOprolol TARTRATE 25 MG (LOPRESSOR) TABLET PO SCH ×2 (07:56→21:31)
[2018-10-21] MEDS: DILTIAZEM 120 MG (CARDIZEM CD) CAP PO SCH (07:56)
[2018-10-21] MEDS: DULoxetine 20 MG (CYMBALTA) CAP PO SCH ×2 (07:56→21:31)
[2018-10-21] MEDS: FUROSEMIDE 40 MG/4 ML INJ (LASIX) IVP SCH (07:56)
[2018-10-21] MEDS: DIPHENOXYLATE/ATROPINE 2.5MG/0.025MG (LOMOTIL) TAB PO SCH ×2 (07:56→21:36)
[2018-10-21] MEDS: LOSARTAN 50 MG (COZAAR) TAB PO SCH (07:56)
[2018-10-21] MEDS: HYDROCORTISONE/PRAM 1% CREAM 30 GM TUBE TOP SCH ×3 (07:57→21:35)
[2018-10-21 08:00] VITALS: BP 120/79
--- NOTE | 2018-10-21 08:04 | Pulmonary Progress Note ---
Sepsis Event Evaluation Height, Weight, BMI Height: 5'6.00" Weight: 174lbs. 4.0oz. 79.437003pq; 33.1 BMI Method:Stated Exam Exam Vital Signs Date Time Temp Pulse Resp B/P (MAP) Pulse Ox O2 Delivery O2 Flow Rate FiO2 10/21/18 07:19 96 Nasal Cannula 3.00 10/21/18 04:00 96.9 66 22 117/71 (86) 96 Nasal Cannula 3.00 10/21/18 02:59 93 Nasal Cannula 3.00 10/21/18 00:00 96.8 60 22 119/73 (88) 94 Nasal Cannula 3.00 10/20/18 22:38 94 NIV Bilevel 4.00 10/20/18 20:21 97.2 58 22 125/62 (83) 95 Nasal Cannula 3.00 10/20/18 20:00 94 NIV Bilevel 4.00 10/20/18 19:03 92 Nasal Cannula 3.00 10/20/18 16:03 97.2 64 22 103/67 (79) 95 Nasal Cannula 3.00 10/20/18 14:53 92 Nasal Cannula 3.00 10/20/18 12:00 97.2 78 20 123/80 (94) 93 Nasal Cannula 4.00 10/20/18 11:01 93 Nasal Cannula 4.00 I & O 10/21/18 07:00 Intake Total 1250 ml Output Total 3378 ml Balance -2128 ml Height & Weight Height: 5'6.00" Weight: 174lbs. 4.0oz. 79.044943xt; 33.1 BMI Method:Stated General Appearance: No Apparent Distress, WD/WN, Chronically ill HEENT: PERRL/EOMI, Normal ENT Inspection, Pharynx Normal Neck: Full Range of Motion, Supple Respiratory: Chest Non Tender, No Accessory Muscle Use, No Respiratory Distress, Decreased Breath Sounds Cardiovascular: Systolic Murmur (1-2/6 noted over the aortic outflow tract no diastolic murmurs noted.), Irregularly Irregular Extremity: Normal Capillary Refill, Normal Range of Motion, Non Tender, No Pedal Edema Neurologic/Psychiatric: Alert, Oriented x3, No Motor/Sensory Deficits Skin: Warm/Dry, Pallor Results Lab Laboratory Tests 10/20/18 05:20 10/21/18 05:00 10/21/18 05:25 Assessment/Plan Assessment/Plan Acute bilateral PE -Continue heparin Coumadin bridge -Pt developed pulmonary hemorrhage with Eliquis Klebsiella PNA -currently on Merrem Pulmonary hemorrhage - resolved Afib Generalized weakness JUAN HESS DO Oct 21, 2018 08:04
--- NOTE | 2018-10-21 08:46 | Progress Note ---
Subjective Date Seen by a Provider: Oct 21, 2018 Time Seen by a Provider: 08:40 Subjective/Events-last exam PT QUITE FATIGUED - HIS REPORTS SIGNIFICANT WEAKNESS, FRUSTRATION OVER THE WEEKEND. Objective Exam Last Set of Vital Signs Vital Signs Date Time Temp Pulse Resp B/P (MAP) Pulse Ox O2 Delivery O2 Flow Rate FiO2 10/21/18 08:00 96 Nasal Cannula 3.00 10/21/18 08:00 97.4 61 20 120/79 (93) 10/19/18 12:38 36 Capillary Refill : Less Than 3 Seconds I&O Intake and Output 10/21/18 00:00 Intake Total 950 ml Output Total 3253 ml Balance -2303 ml Intake Oral 950 ml Output Urine Total 3250 ml Stool Total 3 ml General: Alert, Oriented X3, Cooperative, No Acute Distress HEENT: Atraumatic, PERRLA Neck: Supple Lungs: Other (CLEAR IN UPPER LUNG LAW AND DECREASED IN LEFT BASE, IMPROVED IN RIGHT BASE - CRACKLES IN BASES) Heart: Other (IRREGULARLY IRREGULAR) Abdomen: Normal Bowel Sounds, Soft, No Tenderness Extremities: No Clubbing, No Cyanosis Skin: No Rashes Neuro: Cranial Nerves 3-12 NL Psych/Mental Status: Mental Status NL, Mood NL Results Lab Laboratory Tests 10/20/18 10:58: Glucometer 153H 10/20/18 16:08: Glucometer 171H 10/20/18 20:40: Glucometer 168H 10/21/18 05:00: Sodium Level 133L, Potassium Level 4.7, Chloride Level 99, Carbon Dioxide Level 24, Anion Gap 10, Blood Urea Nitrogen 15, Creatinine 0.82, Estimat Glomerular Filtration Rate > 60, BUN/Creatinine Ratio 18, Glucose Level 87, Calcium Level 9.9, Magnesium Level 1.6L 10/21/18 05:25: White Blood Count 12.4H, Red Blood Count 3.90L, Hemoglobin 11.1L, Hematocrit 34L , Mean Corpuscular Volume 88, Mean Corpuscular Hemoglobin 28, Mean Corpuscular Hemoglobin Concent 33, Red Cell Distribution Width 17.4H, Platelet Count 453H, Mean Platelet Volume 9.6, Neutrophils (%) (Auto) 66, Lymphocytes (%) (Auto) 18, Monocytes (%) (Auto) 12, Eosinophils (%) (Auto) 3, Basophils (%) (Auto) 1, Neutrophils # (Auto) 8.2H, Lymphocytes # (Auto) 2.2, Monocytes # (Auto) 1.5H, Eosinophils # (Auto) 0.4H, Basophils # (Auto) 0.1, Prothrombin Time 14.7, INR Comment 1.1, Activated Partial Thromboplast Time 101H 10/21/18 05:31: Glucometer 91 Microbiology 10/17/18 Gram Stain - Final, Complete 10/17/18 Sputum Culture - Final, Complete Gram Pos Mixed Bacterial Bridget Assessment/Plan Assessment/Plan Assess & Plan/Chief Complaint PULMONARY HEMORRHAGE KLEBSIELLA PNEUMONIA ENTEROBACTER AEROGENES PULMONARY EMBOLI - -RIGHT SIDED PULMONARY EDEMA ATRIAL FIBRILLATION HYPERTENSION HYPERLIPIDEMIA ULCERATIVE COLITIS GENERALIZED WEAKNESS INSOMNIA CHRONIC ANTICOAGULATION USE BPH CRITICAL CARE MYOPATHY EMPHYSEMA HYPOMAGNESEMIA HYPOKALEMIA DIARRHEA ANEMIA RECTAL PAIN PULMONARY HEMORRHAGE WITH KLEBSIELLA PNEUMONIA AND ENTEROBACTER AEROGENES - - KLEBSIELLA SEEMS TO BE RESOLVED - ZOSYN STOPPED AND ENTEROBACTER TO BE TREATED WITH MEROPENEM - AND THIS CULTURE REPORT SHOWED SENSITIVITY TO THE MEROPENEM. WAITING ON REPEAT SPUTUM CULTURE PULMONARY EMBOLI - FOUND ON CT SCAN - THE PT WAS STARTED ON HEPARIN DRIP - HE WILL BE VERY CLOSELY MONITORED TO SEE IF HE HAS AN RECURRENT HEMORRHAGE ON ANTICOAGULATION. WE WILL HAVE TO DISCUSS IF IT IS AN OPTION TO PUT YEHUDA ON A DIFFERENT ANTICOAGULANT ORALLY - DISCUSSION WITH DR. BERNAL AND DR. HESS WILL START HIM ON COUMADIN ON Sunday. ATRIAL FIBRILLATION - -ASPIRIN HELD DUE TO RECURRENT PULMONARY HEMORRHAGE, ELIQUIS HAD TO BE STOPPED DUE TO RECURRENT PULMONARY HEMORRHAGES. - DEFER OTHER TREATMENT TO CONSTRUCTION ENGINEER - DR. BERNAL ON FOR DR. JUNIOR - WE HAVE DISCUSSED IN THE FUTURE THE WATCHMAN DEVICE. HYPERTENSION - CONTINUE WITH METOPROLOL ORALLY HYPERLIPIDEMIA - STABLE - CONTINUE TO HOLD STATIN DUE TO HIS CRITICAL ILLNESS MYOPATHY ULCERATIVE COLITIS - RESTARTED LIALDA - HELD TODAY DUE TO POSSIBLE CDIFF GENERALIZED WEAKNESS -PT WAS ADMITTED TO IN REHAB FOR THERAPY FOR STRENGTHENING. EMPHYSEMA - DX ON HIS CT SCAN - HE WILL NEED CONTINUED TREATMENT OF HIS ILLNESS WITH DR. HESS AN OUTPATIENT. INSOMNIA - RESTARTED HIS HOME MELATONIN DOSING. BPH - RESTARTED TAMSULOSIN. HYPOMAGNESEMIA - IMPROVED MONITOR LABS HYPOKALEMIA - STABLE DIARRHEA - PT HAS KNOWN ULCERATIVE COLITIS - - NOW RECTAL PAIN - WILL HAVE TO GIVE PROCTOFOAM AND LIDOCAINE TREMOR DUE TO STEROIDS ELEVATED BLOOD GLUCOSE DUE TO STEROIDS PT TO HAVE AN INCREASE IN THERAPY TODAY - DISCUSSED WITH THERAPY STAFF - GET PT OUT OF BED AND MOBILIZE MORE TODAY. PT HAS BEEN WEARING HIS DENTURES 24 HOURS/DAY - I HAVE ADVISED TO TAKE OUT DENTURES, LEAVE OUT AT BEDTIME, WASH REALLY WELL/BRUSH/SOAK WELL AND THEN MAY RETURN THEM TO HIS MOUTH TODAY. I AM WONDERING IF SOME OF THE BACTERIA COULD BE COMING FROM HIS UNCLEAN DENTURES. CT OF CHEST FROM 10/15/18 MORNING Impression: 1. Moderately extensive acute pulmonary emboli in multiple segmental vessels in the right lung. 2. Worsened bilateral groundglass and interstitial opacities most likely representing moderate pulmonary edema. Critical findings were communicated to LEIDA Herrera by Dr. Upton at 920 on 10/15/2018 Clinical Quality Measures Admission Status Admission Dx PULMONARY HEMORRHAGE KELBSIELLA PNEUMONIA ATRIAL FIBRILLATION HYPERTENSION HYPERLIPIDEMIA ULCERATIVE COLITIS GENERALIZED WEAKNESS INSOMNIA CHRONIC ANTICOAGULATION USE BPH CRITICAL CARE MYOPATHY EMPHYSEMA HYPOMAGNESEMIA HYPOKALEMIA DIARRHEA ANEMIA DVT/VTE Risk/Contraindication: Risk Factor Score Per Nursin CODEY BARILLAS MD Oct 21, 2018 08:46
--- NOTE | 2018-10-21 10:33 | NUR ---
PRIOR TO A.M. MEDICATIONS PULSE WAS 61 BPM AND B/P WAS 120/79.
[2018-10-21 12:00] VITALS: BP 99/60
--- NOTE | 2018-10-21 12:44 | NUR ---
Follow up visit with present. Pt greeted me when I entered. His said that was the most strength his voice had yet today. Pt shared that he is fatigued but is experiencing sleeplessness. Also described diminished appetite. He welcomed prayer: offered blessings for peace and strength upon the couple.
--- NOTE | 2018-10-21 12:44 | NUR ---
SWING BED note: Received call this morning from [facility], Charbel. She after much review of clinical information gave me authorization through the with review on to be sent on the . Charbel asked if I had gotten the fax for the requested information. I told her that I had not, which is why I went ahead an sent 72 pages of progress notes and PT/OT notes. She took our fax number and says she will send a link which will need to be filled out and send back. She is mostly concerned about ambulation, grooming behavior and antibiotic completion.
--- NOTE | 2018-10-21 12:53 | Cardiology Progress Note ---
Cardiology SOAP Progress Note Subjective: Gradually improving shortness of breath. Objective: I&O/Vital Signs 10/21/18 10/21/18 10/21/18 10/21/18 02:59 04:00 07:19 08:00 Temp 96.9 97.4 Pulse 66 61 Resp 22 20 B/P (MAP) 117/71 (86) 120/79 (93) Pulse Ox 93 96 96 98 O2 Delivery Nasal Cannula Nasal Cannula Nasal Cannula Nasal Cannula O2 Flow Rate 3.00 3.00 3.00 3.00 10/21/18 10/21/18 08:00 10:37 Pulse Ox 96 91 O2 Delivery Nasal Cannula Room Air O2 Flow Rate 3.00 10/21/18 00:00 Intake Total 850 ml Output Total 2778 ml Balance -1928 ml Weight (Pounds): 174 Weight (Ounces): 4.0 Weight (Calculated Kilograms): 79.448843 Constitutional: AAO x 3, apparent distress Respiratory: accessory muscle use, chest is bilaterally symmetric, lungs clear to auscultation Cardiovascular: regular rate-rhythm; No irregularly irregular, No extra beats, No parasternal heave is noted, No JVD, No edema, No bradycardia, No tachycardia, No point of maximal impulse, No cardiac thrills are palpable; S1 and S2; No gallop/S3, No gallop/S4, No diastolic murmur, No systolic murmur, No friction rub, No click, No other Gastrointestional: No tender, No soft, No round, No distended, No pulsatile mass, No organomegaly, No guarding, No rebound, No tenderness, No hernia, No mass, No audible bowel sounds, No abnormal bowel sounds, No abdominal bruits, No spleenomegaly, No other Extremities: No normal range of motion, No non-tender, No normal inspection, No pedal edema, No calf tenderness, No normal capillary refill, No pelvis stable, No calf tenderness, No inflammation, No pedal edema, No slow capillary refill, No swelling, No other, No abrasion, No clubbing, No cyanosis, No ecchymosis, No laceration, No no lower extremity edema bilateral, No significant edema, No tenderness, No wound Neurologic/Psychiatric: no motor/sensory deficits, alert, normal mood/affect, oriented x 3 Results/Procedures: Labs Laboratory Tests 10/20/18 16:08: Glucometer 171H 10/20/18 20:40: Glucometer 168H 10/21/18 05:00: Sodium Level 133L, Potassium Level 4.7, Chloride Level 99, Carbon Dioxide Level 24, Anion Gap 10, Blood Urea Nitrogen 15, Creatinine 0.82, Estimat Glomerular Filtration Rate > 60, BUN/Creatinine Ratio 18, Glucose Level 87, Calcium Level 9.9, Magnesium Level 1.6L 10/21/18 05:25: White Blood Count 12.4H, Red Blood Count 3.90L, Hemoglobin 11.1L, Hematocrit 34L , Mean Corpuscular Volume 88, Mean Corpuscular Hemoglobin 28, Mean Corpuscular Hemoglobin Concent 33, Red Cell Distribution Width 17.4H, Platelet Count 453H, Mean Platelet Volume 9.6, Neutrophils (%) (Auto) 66, Lymphocytes (%) (Auto) 18, Monocytes (%) (Auto) 12, Eosinophils (%) (Auto) 3, Basophils (%) (Auto) 1, Neutrophils # (Auto) 8.2H, Lymphocytes # (Auto) 2.2, Monocytes # (Auto) 1.5H, Eosinophils # (Auto) 0.4H, Basophils # (Auto) 0.1, Prothrombin Time 14.7, INR Comment 1.1, Activated Partial Thromboplast Time 101H 10/21/18 05:31: Glucometer 91 10/21/18 05:55: Phosphorus Level 3.4 10/21/18 10:59: Glucometer 135H Microbiology 10/17/18 Gram Stain - Final, Complete 10/17/18 Sputum Culture - Final, Complete Gram Pos Mixed Bacterial Bridget A/P: Assessment/Dx: pulmonary embolism, pulmonary hemorrhage. Weakness and malaise and low grade fever and leucocytosis, systemic infection suspected, managed by Dr Saravia Relatively low bp lately necessitating d/c diltiazem and reduction in beta- sita. BP has since been better Hemoptysis and pulmonary hemorrhage necessitating discontinuation of Eliquis and aspirin in mid-August 2018; low-dose aspirin reinitiated on 10/01/18 Echo of 09/19/18: LVEF 60-65%, biatrial enlargement, mod MR, mild to mod TR, RVSP 45 mmHg 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 Cardiac cath from December 30, 2013 in which successful GAURI x 2, one to the proximal and one to the mid vessel LAD, was done. 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 Pacemaker currently in the VVIR mode, due to permanent atrial fib. The patient had a pulse generator change out on 12/18/2011. The device is functioning normally per last interrogation of September 23, 2018 (DIMITRIOS estimate 11 months) History of ulcerative colitis, being managed by Dr. Parsons and Dr. Seymour Stroke prophylaxis with Eliquis - currently being held d/t hemoptysis Sleep apnea for which he is following with Dr Mijares - Bi-pap therapy Hyperlipidemia being treated with rosuvastatin. Mild carotid arterial disease that has been followed by Dr. Mcdaniel History of cholecystectomy. 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 May consider watchman device as an outpatient for stroke prevention in a patient with atrial fibrillation. * Pulmonary embolism, on IV heparin, consider positioning to Coumadin. We are not considering IVC filter. Discussed with the patient and family. Dr. Flaquita rosa agrees as well. Currently the patient is improving and lower extremity ultrasound did not show any significant DVT. Thank you for your consultation. Please call me if you have any questions. Naren Raines MD, FACP, FACC, FSCAI, FHRS, CCDS Interventional Cardiology Cardiac Electrophysiology Vascular Medicine and Endovascular Interventions Deepak RAINES MD Oct 21, 2018 12:53 pm
--- NOTE | 2018-10-21 13:05 | NUR ---
SWINGBED patient assessment. This RN, after having talked with insurance about cont. stay authorization, went to visit with patient. He is having a bad day. They report he had bouts of diarrhea which has drained him of energy...ad he cannot stay asleep so he is very tired. He will only talk in whispers as he doesn't have energy. He is now complaining of lower abdominal pain just above the pubic bone and it goes across the whole lower abdomen. He does have colitis history. Patient's reports that the plan is to start him on Coumadin and remain on Hep gtt until is therapeutic. Asked Dr. Parsons to call when she had a moment.
--- NOTE | 2018-10-21 14:58 | Occ Therapy Progress Note ---
Therapy Progress Note Attempted to see pt. twice this date. At first attempt, OT met by PT who states that pt. is on hold from therapy in a.m. per pt. and family due to pt. not sleeping night before. OT allowed pt. to rest and came back in p.m. Pt. in bed and awake, but has very weak voice. Family not in room, but pt. states that he is being allowed to rest today per physician, and that he will attempt tomorrow. OT offers any assistance that may allow pt. comfort. He states that he is comfortable, but would like to rest. OT encourages pt. and holds pt's hand for several minutes. All needs are met and pt. is able to reach his call light and water. OT puts HOB down per his request. Will continue to monitor pt. , , visit 1200, [phone] no charge ANURAG HENRIQUEZ OT Oct 21, 2018 14:58
[2018-10-21] MEDS: HEParin DRIP 25000 UNIT/500ML 500 ML IV SCH (15:07)
--- NOTE | 2018-10-21 15:13 | Physical Therapy Progress Note ---
Therapy Progress Note Patient on hold in the AM per nursing. In the PM patient states he is being allowed to rest today by doctor and would like to try to start PT tomorrow. Will try back tomorrow. MARIA ELENA ESQUIVEL PT Oct 21, 2018 15:13
[2018-10-21 17:11] VITALS: BP 99/68
[2018-10-21] MEDS: TAMSULOSIN 0.4 MG (FLOMAX) CAP PO SCH (17:12)
[2018-10-21] MEDS: warFARin 5 MG (COUMADIN) TAB PO SCH (17:12)
[2018-10-21 20:00] VITALS: BP 108/71
[2018-10-21] MEDS: traZODone 50 MG (DESYREL) TAB PO SCH (21:31)
[2018-10-21] MEDS: diphenhydrAMINE 25 MG TAB (BENADRYL) PO PRN (21:31)
[2018-10-21] MEDS: ALPRAZolam 0.25 MG (XANAX) TAB PO PRN (21:31)
[2018-10-21] MEDS: MESALAMINE PO SCH (21:35)
[2018-10-22] VITALS (7 sets, daily range): BP systolic 96–119; BP diastolic 63–75
[2018-10-22] MEDS: RT-ALBUTEROL/IPRATROPIUM 3 ML (DUONEB) VIAL INH SCH ×6 (02:59→21:41)
[2018-10-22] MEDS: MEROPENEM 500 MG in WATER (STERILE) FOR INJECTION 10 ML IV SCH ×4 (04:29→21:29)
[2018-10-22] MEDS: LACTOBACILLUS ACIDOPHILUS (PROBIOTIC) CAPSULE PO SCH ×2 (05:50→15:43)
[2018-10-22] MEDS: PANTOPRAZOLE 40 MG (PROTONIX) TAB PO SCH (05:50)
[2018-10-22] MEDS: KCL 10 MEQ TAB (MICRO K) PO SCH ×2 (05:50→17:16)
[2018-10-22 06:12] LABS: BASOPHILS # (AUTO) 0.1 10^3/uL (0.0-0.1); BASOPHILS % (AUTO) 1 % (0-10); EOSINOPHILS # (AUTO) 0.4 10^3/uL (0.0-0.3); EOSINOPHILS % (AUTO) 3 % (0-10); HEMATOCRIT 35 % (40-54); HEMOGLOBIN 11.3 G/DL (13.3-17.7); LYMPHOCYTES # (AUTO) 2.7 X 10^3 (1.0-4.0); LYMPHOCYTES % (AUTO) 21 % (12-44); MEAN CORPUSCULAR HEMOGLOBIN 28 PG (25-34); MEAN CORPUSCULAR HGB CONC 32 G/DL (32-36); MEAN CORPUSCULAR VOLUME 88 FL (80-99); MEAN PLATELET VOLUME 9.8 FL (7.4-10.4); MONOCYTES # (AUTO) 1.7 X 10^3 (0.0-1.0); MONOCYTES % (AUTO) 13 % (0-12); NEUTROPHILS # (AUTO) 8.4 X 10^3 (1.8-7.8); NEUTROPHILS % (AUTO) 63 % (42-75); PLATELET COUNT 453 10^3/uL (130-400); RED CELL DISTRIBUTION WIDTH 17.2 % (10.0-14.5); WHITE BLOOD COUNT 13.3 10^3/uL (4.3-11.0)
[2018-10-22 06:15] LABS: INR 1.2 (0.8-1.4); PROTHROMBIN TIME PATIENT 15.9 SEC (12.2-14.7)
[2018-10-22] MEDS: inSUlin ASPART (NovoLOG) 1 UNIT/0.01 ML (CHARGE PER UNIT) SC SCH ×4 (06:21→21:28)
[2018-10-22 06:26] LABS: BUN/CREATININE RATIO 17; CALCIUM 10.2 MG/DL (8.5-10.1); CARBON DIOXIDE 24 MMOL/L (21-32); CHLORIDE 98 MMOL/L (98-107); GFR ESTIMATED > 60; GLUCOSE 118 MG/DL (70-105); MAGNESIUM 1.8 MG/DL (1.8-2.4); PHOSPHORUS 3.6 MG/DL (2.3-4.7); SODIUM 131 MMOL/L (135-145)
[2018-10-22] MEDS: RT-ALBUTEROL/IPRATROPIUM 3 ML (DUONEB) VIAL INH PRN (07:32)
[2018-10-22] MEDS: DULoxetine 20 MG (CYMBALTA) CAP PO SCH ×2 (08:29→20:26)
[2018-10-22] MEDS: meTOprolol TARTRATE 25 MG (LOPRESSOR) TABLET PO SCH ×2 (08:29→21:20)
[2018-10-22] MEDS: DILTIAZEM 120 MG (CARDIZEM CD) CAP PO SCH (08:29)
[2018-10-22] MEDS: LOSARTAN 50 MG (COZAAR) TAB PO SCH (08:29)
[2018-10-22] MEDS: HYDROCORTISONE/PRAM 1% CREAM 30 GM TUBE TOP SCH ×3 (08:30→20:28)
--- NOTE | 2018-10-22 08:45 | Physical Therapy Daily Note ---
PT Daily Note-Current Subjective Patient in bed pre tx, agrees to PT, has no complaints of pain. Appearance Patient in bed post tx with nurse call, phone, tray, all needs met, in room. Mental Status Patient Orientation: Person, Place, Situation Attachments: SCD's, Oxygen Transfers Therapy Code Descriptions/Definitions Functional [place] Measure: 0=Not Assessed/NA 4=Minimal Assistance 1=Total Assistance 5=Supervision or Setup 2=Maximal Assistance 6=Modified [place] 3=Moderate Assistance 7=Complete [place] Therapy Quality Codes: 6 Independent with activity with or without an assistive device 5 Patient requires set up or clean up by helper. Patient completes activity by themselves 4 Supervision or touching assist (CGA). [place] provide cues , steadying assist 3 The helper provides less than half the effort to complete the activity 2 The helper provides more than half the effort to complete the activity 1 Dependent. The helper does all the effort to complete an activity 7 Patient refused to complete or attempt activity 9 The patient did not perform the activity before the current illness or injury 88 Not attempted due to Medical conditions or safety concerns Transfers (B, C, W/C) (FIM): 2 Scootin Rollin Supine to/from Sit: 2 Patient was able to sit on the edge of the bed for about 10 min and perform a couple of LE exercise. He needed min assist to maintain balance, he could probably do better but it is more difficult to sit on an air mattress. Weight Bearing Right Lower Extremity: Right Weight Bearing/Tolerated Left Lower Extremity: Left Weight Bearing/Tolerated Exercises Supine Ex: Quad Set, Glut sets, Heel Slides, Hip abd/add Supine Reps: 15 Seated Therapy Exercises: Ankle pumps, Long arc quads Seated Reps: 15 Treatments sitting, LE exercise Assessment Current Status: Poor Progress Patient very weak, fatigues quickly PT Short Term Goals Short Term Goals Time Frame: Oct 26, 2018 Transfers (B,C,W/C) (FIM): 4 Gait (FIM): 1 Distance (FIM): 1=up to 49 ft Gait Distance Comment: 45' Gait Level of Assist: 4 Gait Assistive Device: FWW PT Longterm Goals Longterm Goals PT Recreation Therapy Aide Goals Time Frame: Nov 09, 2018 Transfers (B,C,W/C) (FIM): 6 Sit to Lying (QC): 6 Lying-Sitting on Side/Bed(QC): 6 Sit to Stand (QC): 6 Rollin Roll Left to Right (QC): 6 Chair/Vxl-en-Spmih Xfer(QC): 6 Car Transfer (QC): 6 Does the Patient Walk: Yes Gait (FIM): 2 Gait distance (FIM): 6=550-62 ft Distance: 125' Walk 10 feet (QC): 5 Walk 10ft-Uneven Surface(QC): 5 Walk 50ft with 2 Turns (QC): 5 Gait Level of Assist: 5 Gait Assistive Device: FWW Stairs (FIM): 2 # of Steps: 4 1 Step (curb) (QC): 5 4 Steps (QC): 5 12 Steps (QC): 9 Stairs Level Of Assist: 5 Picking up an Object (QC): 5 PT Plan Problem List Problem List: Activity Tolerance, Functional Strength, Safety, Balance, Gait, Transfer, Bed Mobility, ROM Treatment/Plan Treatment Plan: Continue Plan of Care Treatment Plan: Bed Mobility, Education, Functional Activity [place], Functional Strength, Gait, Safety, Therapeutic Exercise, Transfers Treatment Duration: Nov 09, 2018 Frequency: 11 times per week Estimated Hrs Per Day: .5 hour per day Patient and/or Family Agrees t: Yes Safety Risks/Education Patient Education: Correct Positioning, Safety Issues Teaching Recipient: Patient Teaching Methods: Demonstration, Discussion Response to Teaching: Reinforcement Needed Time/GCodes Time In: 08 Time Out: 0838 Total Billed Treatment Time: 18 Total Billed Treatment 1 visit FA 18' MARIA ELENA ESQUIVEL PT Oct 22, 2018 08:45
--- NOTE | 2018-10-22 08:47 | Progress Note ---
Objective Exam Last Set of Vital Signs Vital Signs Date Time Temp Pulse Resp B/P (MAP) Pulse Ox O2 Delivery O2 Flow Rate FiO2 10/22/18 08:00 97.5 64 16 107/73 (84) 94 Nasal Cannula 3.00 10/19/18 12:38 36 Capillary Refill : Less Than 3 Seconds I&O Intake and Output 10/22/18 00:00 Intake Total 1400 ml Output Total 2400 ml Balance -1000 ml Intake Oral 1400 ml Output Urine Total 2400 ml General: Alert, Oriented X3, Cooperative, No Acute Distress HEENT: Atraumatic, PERRLA Neck: Supple Lungs: Other (CLEAR IN UPPER LUNG LAW AND DECREASED IN LEFT BASE, IMPROVED IN RIGHT BASE - CRACKLES IN BASES) Heart: Other (IRREGULARLY IRREGULAR) Abdomen: Normal Bowel Sounds, Soft, No Tenderness Extremities: No Clubbing, No Cyanosis Skin: No Rashes Neuro: Cranial Nerves 3-12 NL Psych/Mental Status: Mental Status NL, Mood NL Results Lab Laboratory Tests 10/21/18 10:59: Glucometer 135H 10/21/18 16:11: Glucometer 152H 10/21/18 21:06: Glucometer 174H 10/22/18 05:40: White Blood Count 13.3H, Red Blood Count 4.02L, Hemoglobin 11.3L, Hematocrit 35L , Mean Corpuscular Volume 88, Mean Corpuscular Hemoglobin 28, Mean Corpuscular Hemoglobin Concent 32, Red Cell Distribution Width 17.2H, Platelet Count 453H, Mean Platelet Volume 9.8, Neutrophils (%) (Auto) 63, Lymphocytes (%) (Auto) 21, Monocytes (%) (Auto) 13H, Eosinophils (%) (Auto) 3, Basophils (%) (Auto) 1, Neutrophils # (Auto) 8.4H, Lymphocytes # (Auto) 2.7, Monocytes # (Auto) 1.7H, Eosinophils # (Auto) 0.4H, Basophils # (Auto) 0.1, Prothrombin Time 15.9H, INR Comment 1.2, Activated Partial Thromboplast Time 186*H, Sodium Level 131L, Potassium Level 5.0, Chloride Level 98, Carbon Dioxide Level 24, Anion Gap 9, Blood Urea Nitrogen 15, Creatinine 0.90, Estimat Glomerular Filtration Rate > 60, BUN/Creatinine Ratio 17, Glucose Level 118H, Calcium Level 10.2H, Phosphorus Level 3.6, Magnesium Level 1.8 10/22/18 06:07: Glucometer 118H Microbiology 10/17/18 Gram Stain - Final, Complete 10/17/18 Sputum Culture - Final, Complete Gram Pos Mixed Bacterial Bridget Assessment/Plan Assessment/Plan Assess & Plan/Chief Complaint PULMONARY HEMORRHAGE KLEBSIELLA PNEUMONIA ENTEROBACTER AEROGENES PULMONARY EMBOLI - -RIGHT SIDED PULMONARY EDEMA ATRIAL FIBRILLATION HYPERTENSION HYPERLIPIDEMIA ULCERATIVE COLITIS GENERALIZED WEAKNESS INSOMNIA CHRONIC ANTICOAGULATION USE BPH CRITICAL CARE MYOPATHY EMPHYSEMA HYPOMAGNESEMIA HYPOKALEMIA DIARRHEA ANEMIA RECTAL PAIN PULMONARY HEMORRHAGE WITH KLEBSIELLA PNEUMONIA AND ENTEROBACTER AEROGENES - - KLEBSIELLA SEEMS TO BE RESOLVED - ZOSYN STOPPED AND ENTEROBACTER TO BE TREATED WITH MEROPENEM - AND THIS CULTURE REPORT SHOWED SENSITIVITY TO THE MEROPENEM. WAITING ON REPEAT SPUTUM CULTURE PULMONARY EMBOLI - FOUND ON CT SCAN - THE PT WAS STARTED ON HEPARIN DRIP - HE WILL BE VERY CLOSELY MONITORED TO SEE IF HE HAS AN RECURRENT HEMORRHAGE ON ANTICOAGULATION. WE WILL HAVE TO DISCUSS IF IT IS AN OPTION TO PUT YEHUDA ON A DIFFERENT ANTICOAGULANT ORALLY - DISCUSSION WITH DR. BERNAL AND DR. HESS WILL START HIM ON COUMADIN ON Sunday. ATRIAL FIBRILLATION - -ASPIRIN HELD DUE TO RECURRENT PULMONARY HEMORRHAGE, ELIQUIS HAD TO BE STOPPED DUE TO RECURRENT PULMONARY HEMORRHAGES. 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 BERNAL ON FOR DR. JUNIOR - WE HAVE DISCUSSED IN THE FUTURE THE WATCHMAN DEVICE. HYPERTENSION - CONTINUE WITH METOPROLOL ORALLY HYPERLIPIDEMIA - STABLE - CONTINUE TO HOLD STATIN DUE TO HIS CRITICAL ILLNESS MYOPATHY ULCERATIVE COLITIS - RESTARTED LIALDA - HELD TODAY DUE TO POSSIBLE CDIFF GENERALIZED WEAKNESS -PT WAS ADMITTED TO INPT REHAB FOR THERAPY FOR STRENGTHENING. EMPHYSEMA - DX ON HIS CT SCAN - HE WILL NEED CONTINUED TREATMENT OF HIS ILLNESS WITH DR. HESS AN OUTPATIENT. INSOMNIA - RESTARTED HIS HOME MELATONIN DOSING. BPH - RESTARTED TAMSULOSIN. HYPOMAGNESEMIA - IMPROVED MONITOR LABS HYPOKALEMIA - STABLE DIARRHEA - PT HAS KNOWN ULCERATIVE COLITIS - - NOW RECTAL PAIN - WILL HAVE TO GIVE PROCTOFOAM AND LIDOCAINE TREMOR DUE TO STEROIDS ELEVATED BLOOD GLUCOSE DUE TO STEROIDS PT TO HAVE AN INCREASE IN THERAPY TODAY - DISCUSSED WITH THERAPY STAFF - GET PT OUT OF BED AND MOBILIZE MORE TODAY. PT HAS BEEN WEARING HIS DENTURES 24 HOURS/DAY - I HAVE ADVISED TO TAKE OUT DENTURES, LEAVE OUT AT BEDTIME, WASH REALLY WELL/BRUSH/SOAK WELL AND THEN MAY RETURN THEM TO HIS MOUTH TODAY. I AM WONDERING IF SOME OF THE BACTERIA COULD BE COMING FROM HIS UNCLEAN DENTURES. CT OF CHEST FROM 10/15/18 MORNING Impression: 1. Moderately extensive acute pulmonary emboli in multiple segmental vessels in the right lung. 2. Worsened bilateral groundglass and interstitial opacities most likely representing moderate pulmonary edema. Critical findings were communicated to LEIDA Herrera by Dr. Upton at 920 on 10/15/2018 Clinical Quality Measures Admission Status Admission Dx PULMONARY HEMORRHAGE KELBSIELLA PNEUMONIA ATRIAL FIBRILLATION HYPERTENSION HYPERLIPIDEMIA ULCERATIVE COLITIS GENERALIZED WEAKNESS INSOMNIA CHRONIC ANTICOAGULATION USE BPH CRITICAL CARE MYOPATHY EMPHYSEMA HYPOMAGNESEMIA HYPOKALEMIA DIARRHEA ANEMIA DVT/VTE Risk/Contraindication: Risk Factor Score Per Nursin CODEY BARILLAS MD Oct 22, 2018 08:47
[2018-10-22] MEDS: DIPHENOXYLATE/ATROPINE 2.5MG/0.025MG (LOMOTIL) TAB PO SCH ×2 (09:11→20:29)
[2018-10-22] MEDS: HEParin DRIP 25000 UNIT/500ML 500 ML IV SCH (09:11)
[2018-10-22] MEDS ORDERED: warFARin 5 MG (COUMADIN) TAB PO ONE (09:30)
[2018-10-22] MEDS: SPIRONOLACTONE 25 MG (ALDACTONE) TAB PO SCH (09:47)
[2018-10-22] MEDS: ALBUMIN 25% 25 GM/100 ML 50 ML IV SCH ×3 (09:48→22:10)
[2018-10-22] MEDS: NS IV 1000 ML 1,000 ML IV SCH (09:48)
[2018-10-22] MEDS: DOCOSANOL 10 % CREAM (ABREVA) 2 GM TP SCH ×4 (10:06→20:28)
--- NOTE | 2018-10-22 12:07 | Occ Therapy Progress Note ---
Therapy Progress Note Attempted to treat pt. Pt. asleep and on c-pap. Spoke with spouse in room. Spouse talks about next step with possible SNF placement, as she is unable to assist pt. in home setting due to current needs. OT was encouraging and offered to assist spouse with needs while visiting her . Spouse would like to let pt. sleep for a little while longer, and then will attempt to have him eat. OT and spouse talked about foods he might like, and importance of nutrition. Set a time with spouse for this therapist to come back in afternoon to work with pt. [phone] 1, visit no charge ANURAG HENRIQUEZ OT Oct 22, 2018 12:07
--- NOTE | 2018-10-22 13:14 | Cardiology Progress Note ---
Cardiology SOAP Progress Note Subjective: Shortness of breath. Objective: I&O/Vital Signs 10/22/18 10/22/18 10/22/18 10/22/18 02:59 04:15 07:32 08:00 Temp 97.9 Pulse 61 Resp 21 B/P (MAP) 108/66 (80) Pulse Ox 92 96 94 O2 Delivery Nasal Cannula Nasal Cannula Nasal Cannula Nasal Cannula O2 Flow Rate 3.00 3.00 4.00 10/22/18 10/22/18 10/22/18 08:00 10:31 12:00 Temp 97.5 98.5 Pulse 64 64 Resp 16 16 B/P (MAP) 107/73 (84) 96/67 (77) Pulse Ox 94 96 98 O2 Delivery Nasal Cannula NIV CPAP NIV Bilevel O2 Flow Rate 3.00 4.00 3.00 10/22/18 00:00 Intake Total 1000 ml Output Total 1800 ml Balance -800 ml Weight (Pounds): 174 Weight (Ounces): 4.0 Weight (Calculated Kilograms): 79.915586 Constitutional: AAO x 3, apparent distress Respiratory: accessory muscle use, chest is bilaterally symmetric, lungs clear to auscultation Cardiovascular: regular rate-rhythm; No irregularly irregular, No extra beats, No parasternal heave is noted, No JVD, No edema, No bradycardia, No tachycardia, No point of maximal impulse, No cardiac thrills are palpable; S1 and S2; No gallop/S3, No gallop/S4, No diastolic murmur, No systolic murmur, No friction r ub, No click, No other Gastrointestional: No tender, No soft, No round, No distended, No pulsatile mass, No organomegaly, No guarding, No rebound, No tenderness, No hernia, No mass, No audible bowel sounds, No abnormal bowel sounds, No abdominal bruits, No spleenomegaly, No other Extremities: No normal range of motion, No non-tender, No normal inspection, No pedal edema, No calf tenderness, No normal capillary refill, No pelvis stable, No calf tenderness, No inflammation, No pedal edema, No slow capillary refill, No swelling, No other, No abrasion, No clubbing, No cyanosis, No ecchymosis, No laceration, No no lower extremity edema bilateral, No significant edema, No tenderness, No wound Neurologic/Psychiatric: no motor/sensory deficits, alert, normal mood/affect, oriented x 3 Results/Procedures: Labs Laboratory Tests 10/21/18 16:11: Glucometer 152H 10/21/18 21:06: Glucometer 174H 10/22/18 05:40: White Blood Count 13.3H, Red Blood Count 4.02L, Hemoglobin 11.3L, Hematocrit 35L , Mean Corpuscular Volume 88, Mean Corpuscular Hemoglobin 28, Mean Corpuscular Hemoglobin Concent 32, Red Cell Distribution Width 17.2H, Platelet Count 453H, Mean Platelet Volume 9.8, Neutrophils (%) (Auto) 63, Lymphocytes (%) (Auto) 21, Monocytes (%) (Auto) 13H, Eosinophils (%) (Auto) 3, Basophils (%) (Auto) 1, Neutrophils # (Auto) 8.4H, Lymphocytes # (Auto) 2.7, Monocytes # (Auto) 1.7H, Eosinophils # (Auto) 0.4H, Basophils # (Auto) 0.1, Prothrombin Time 15.9H, INR Comment 1.2, Activated Partial Thromboplast Time 186*H, Sodium Level 131L, Potassium Level 5.0, Chloride Level 98, Carbon Dioxide Level 24, Anion Gap 9, Blood Urea Nitrogen 15, Creatinine 0.90, Estimat Glomerular Filtration Rate > 60, BUN/Creatinine Ratio 17, Glucose Level 118H, Calcium Level 10.2H, Phosphorus Level 3.6, Magnesium Level 1.8, Albumin 2.6L 10/22/18 06:07: Glucometer 118H 10/22/18 10:51: Glucometer 133H Microbiology 10/17/18 Gram Stain - Final, Complete 10/17/18 Sputum Culture - Final, Complete Gram Pos Mixed Bacterial Bridget A/P: Assessment/Dx: pulmonary embolism, pulmonary hemorrhage. Weakness and malaise and low grade fever and leucocytosis, systemic infection suspected, managed by Dr Saravia Relatively low bp lately necessitating d/c diltiazem and reduction in beta- sita. BP has since been better Hemoptysis and pulmonary hemorrhage necessitating discontinuation of Eliquis and aspirin in mid-August 2018; low-dose aspirin reinitiated on 10/01/18 Echo of 09/19/18: LVEF 60-65%, biatrial enlargement, mod MR, mild to mod TR, RVSP 45 mmHg 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 Cardiac cath from December 30, 2013 in which successful GAURI x 2, one to the proximal and one to the mid vessel LAD, was done. 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 Pacemaker currently in the VVIR mode, due to permanent atrial fib. The patient had a pulse generator change out on 12/18/2011. The device is functioning normally per last interrogation of September 23, 2018 (DIMITRIOS estimate 11 months) History of ulcerative colitis, being managed by Dr. Parsons and Dr. Seymour Stroke prophylaxis with Eliquis - currently being held d/t hemoptysis Sleep apnea for which he is following with Dr Mijares - Bi-pap therapy Hyperlipidemia being treated with rosuvastatin. Mild carotid arterial disease that has been followed by Dr. Mcdaniel History of cholecystectomy. 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 * Continue long-acting diltiazem - adjust dose as indicated * Monitor labs * patient is not a good candidate for oral anticoagulation due to pulmonary hemorrhage. May consider watchman device as an outpatient for stroke prevention in a patient with atrial fibrillation. * Pulmonary embolism, on IV heparin, transitioning to Coumadin. We are not considering IVC filter. Discussed with the patient and family. Dr. Parsons agrees as well. Currently the patient is improving and lower extremity ultrasound did not show any significant DVT. Thank you for your consultation. Please call me if you have any questions. Naren Raines MD, FACP, FACC, FSCAI, FHRS, CCDS Interventional Cardiology Cardiac Electrophysiology Vascular Medicine and Endovascular Interventions Deepak RAINES MD Oct 22, 2018 13:14
[2018-10-22] MEDS ORDERED: ALPRAZolam 0.25 MG (XANAX) TAB PO PRN (13:15)
--- NOTE | 2018-10-22 13:19 | NUR ---
PALLIATIVE CARE RN made visit to patient. I got acquainted with them when covering for SWINGBED. Patient is feeling better today, with a stronger voice and a slight appetite. We had a very long discussion about his hope for the future..which is to go home We talked about the possibility that he may not get back to his old self is not likely especially if he continues to be unable to get on his feet. Patient's mentioned my Palliative Care title and I explained to her again what this is. We even talked about hospice as a possibility if he does not appear to be improving. At this time he would like to continue to improve. I gave them my card if they have questions in the future.
--- NOTE | 2018-10-22 14:33 | Occupational Ther Daily Note ---
OT Current Status-Daily Note Subjective No pain reported. Appearance Pt. in bed. Alert and oriented. States that he had a good nap. Agrees to work with OT. Mental Status/Objective Patient Orientation: Person, Place Therapy Code Descriptions/Definitions Functional [place] Measure: 0=Not Assessed/NA 4=Minimal Assistance 1=Total Assistance 5=Supervision or Setup 2=Maximal Assistance 6=Modified [place] 3=Moderate Assistance 7=Complete [place] ADL-Treatment Therapy Code Descriptions/Definitions Functional [place] Measure: 0=Not Assessed/NA 4=Minimal Assistance 1=Total Assistance 5=Supervision or Setup 2=Maximal Assistance 6=Modified [place] 3=Moderate Assistance 7=Complete [place] Therapy Quality Codes: 6 Independent with activity with or without an assistive device 5 Patient requires set up or clean up by helper. Patient completes activity by themselves 4 Supervision or touching assist (CGA). [place] provide cues , steadying assist 3 The helper provides less than half the effort to complete the activity 2 The helper provides more than half the effort to complete the activity 1 Dependent. The helper does all the effort to complete an activity 7 Patient refused to complete or attempt activity 9 The patient did not perform the activity before the current illness or injury 88 Not attempted due to Medical conditions or safety concerns Pt. in bed. Agrees to work with OT on strengthening. Pt. requests that OT assist him with LE exercises for increased strength for ADL transfers and access to LE for ADLs. OT assisted with 7 bilateral LE exercises x 10 reps against resistance in all planes. Pt. tolerated this well but did fatigue easily. Worked on core strengthening with trunk flexion and trunk rotation. Pt. has difficulty engaging core to flex forward or to rotate, but does to best of his ability. OT placed air bed in chair position and re-applied SCDs. Encouraged pt in upright position. All needs met with spouse in room and nursing notified. Education OT Patient Education: Correct positioning, Exercise program, Progress toward Goal/Update tx plan, Purpose of tx/functional activities, Reviewed precautions, Rehab process Teaching Recipient: Patient, Significant Other Teaching Methods: Demonstration, Discussion Response to Teaching: Verbalize Understanding, Return Demonstration OT Short Term Goals Short Term Goals Time Frame: Oct 25, 2018 Grooming(FIM): 4 Bathing(FIM): 4 Lower Body Dressing(FIM): 3 Transfers (B,C,W/C) (FIM): 4 Additional Short Term Goals: 1-Demonstrate ADL Tasks, 2-Verbalize Understanding, 3-ImproveStrength/Gilbert 1=Demonstrate adherence to instructed precautions during ADL tasks. 2=Patient will verbalize/demonstrate understanding of assistive devices/modifications for ADL. 3=Patient will improve strength/tolerance for activity to enable patient to perform ADL's. OT Car Supplier Goals Car Supplier Goals Time Frame: Nov 08, 2018 Eating (FIM): 6 Eating (QC): 6 Groomin Oral Hygiene (QC): 5 Bathing(FIM): 5 Shower/Bathe Self (QC): 5 Upper Body Dressing(FIM): 5 Upper Body Dressing (QC): 5 Lower Body Dressing(FIM): 5 Lower Body Dressing (QC): 5 On/Off Footwear (QC): 5 Toileting(FIM): 5 Toileting Hygiene (QC): 5 Transfers (B,C,W/C) (FIM): 5 Toilet/Commode Transfer(FIM): 5 Toilet/Commode Transfer (QC): 5 Shower Transfer(FIM): 5 Additional Goals: 1-Demonstrate ADL Tasks, 2-Verbalize Understanding, 3- ImproveStrength/Gilbert 1=Demonstrate adherence to instructed precautions during ADL tasks. 2=Patient will verbalize/demonstrate understanding of assistive devices/modifications for ADL. 3=Patient will improve strength/tolerance for activity to enable patient to perform ADL's. OT Education/Plan Problem List/Assessment Assessment: Decreased Activ Tolerance, Decreased UE Strength, Dependent Transfers, Impaired Bed Mobility, Impaired I ADL's, Impaired Self-Care Skills Discharge Recommendations Plan/Recommendations: Continue POC Therapy D/C Recommendations: 24 hr Supervision Treatment Plan/Plan of Care Treatment,Training & Education: Yes Patient would benefit from OT for education, treatment and training to promote independence in ADL's, mobility, safety and/or upper extremity function for ADL's. Plan of Care: ADL Retraining, Caregiver Training, Concurrent Therapy, Functional Mobility, Group Exercise/Act as Ind, UE Funct Exercise/Act Treatment Duration: Nov 08, 2018 Frequency: 5 times per week Estimated Hrs Per Day: .5 hour per day Agreement: Yes Rehab Potential: Fair Time/GCodes Start Time: 13:05 Stop Time: 13:42 Total Time Billed (hr/min): 38 Billed Treatment Time 1, Ex x 3 ANURAG HENRIQUEZ OT Oct 22, 2018 14:33
--- NOTE | 2018-10-22 14:54 | Pulmonary Progress Note ---
Subjective Time Seen by a Provider: 11:19 Subjective/Events-last exam Pt feels improved c/w yesterday. Sepsis Event Evaluation Height, Weight, BMI Height: 5'6.00" Weight: 174lbs. 4.0oz. 79.337202fs; 33.1 BMI Method:Stated Exam Exam Vital Signs Date Time Temp Pulse Resp B/P (MAP) Pulse Ox O2 Delivery O2 Flow Rate FiO2 10/22/18 12:00 98.5 64 16 96/67 (77) 98 NIV Bilevel 3.00 10/22/18 10:31 96 NIV CPAP 4.00 10/22/18 08:00 97.5 64 16 107/73 (84) 94 Nasal Cannula 3.00 10/22/18 08:00 Nasal Cannula 10/22/18 07:32 94 Nasal Cannula 4.00 10/22/18 04:15 97.9 61 21 108/66 (80) 96 Nasal Cannula 3.00 10/22/18 02:59 92 Nasal Cannula 3.00 10/22/18 00:35 97.9 67 22 102/68 (79) 95 Nasal Cannula 3.00 10/21/18 22:52 90 NIV CPAP 3.00 10/21/18 20:00 97.4 64 22 108/71 (83) 97 Nasal Cannula 3.00 10/21/18 20:00 97 Nasal Cannula 3.00 10/21/18 17:11 99/68 (78) 10/21/18 16:11 97.9 65 22 95 Nasal Cannula 3.00 I & O 10/22/18 07:00 Intake Total 1200 ml Output Total 2200 ml Balance -1000 ml Height & Weight Height: 5'6.00" Weight: 174lbs. 4.0oz. 79.699686rn; 33.1 BMI Method:Stated General Appearance: No Apparent Distress HEENT: PERRL/EOMI, TMs Normal, Normal ENT Inspection, Pharynx Normal Neck: Full Range of Motion, Supple Respiratory: Chest Non Tender, Other (Few scattered rhonchi noted with no wheezes breath sounds are coarse good air movement) Cardiovascular: Systolic Murmur (1-2/6 noted over the aortic outflow tract no diastolic murmurs noted.), Irregularly Irregular Extremity: Normal Capillary Refill, Normal Range of Motion, Non Tender, No Pedal Edema Neurologic/Psychiatric: Alert, Oriented x3 Skin: Warm/Dry, Pallor Results Lab Laboratory Tests 10/21/18 05:00 10/21/18 05:25 10/22/18 05:40 Assessment/Plan Assessment/Plan Acute bilateral PE -heparin Coumadin bridge to Coumadin therapy -Pt developed pulmonary hemorrhage with Eliquis Klebsiella PNA - Merrem Pulmonary hemorrhage - resolved Afib Generalized weakness JUAN HESS DO Oct 22, 2018 14:54
[2018-10-22] MEDS: TAMSULOSIN 0.4 MG (FLOMAX) CAP PO SCH (17:16)
[2018-10-22] MEDS: warFARin 5 MG (COUMADIN) TAB PO SCH (17:17)
[2018-10-22] MEDS: diphenhydrAMINE 25 MG TAB (BENADRYL) PO PRN (20:26)
[2018-10-22] MEDS: MESALAMINE PO SCH (20:26)
[2018-10-22] MEDS ORDERED: traZODone 50 MG (DESYREL) TAB PO SCH (21:00)
[2018-10-23] VITALS: BP 101/64
[2018-10-23] MEDS: RT-ALBUTEROL/IPRATROPIUM 3 ML (DUONEB) VIAL INH SCH ×6 (02:42→22:01)
[2018-10-23 03:58] VITALS: BP 101/62
[2018-10-23] MEDS: MEROPENEM 500 MG in WATER (STERILE) FOR INJECTION 10 ML IV SCH (05:13)
[2018-10-23] MEDS: PANTOPRAZOLE 40 MG (PROTONIX) TAB PO SCH (05:17)
[2018-10-23] MEDS: KCL 10 MEQ TAB (MICRO K) PO SCH (05:17)
[2018-10-23] MEDS: LACTOBACILLUS ACIDOPHILUS (PROBIOTIC) CAPSULE PO SCH ×2 (05:18→17:41)
[2018-10-23] MEDS: ALBUMIN 25% 25 GM/100 ML 50 ML IV SCH ×3 (05:18→22:00)
[2018-10-23] MEDS: DOCOSANOL 10 % CREAM (ABREVA) 2 GM TP SCH ×5 (05:21→20:16)
[2018-10-23] MEDS: NS IV 1000 ML 1,000 ML IV SCH ×2 (05:33→20:20)
[2018-10-23] MEDS: inSUlin ASPART (NovoLOG) 1 UNIT/0.01 ML (CHARGE PER UNIT) SC SCH ×4 (05:34→21:34)
[2018-10-23 05:45] LABS: BASOPHILS # (AUTO) 0.1 10^3/uL (0.0-0.1); BASOPHILS % (AUTO) 1 % (0-10); EOSINOPHILS # (AUTO) 0.2 10^3/uL (0.0-0.3); EOSINOPHILS % (AUTO) 2 % (0-10); HEMATOCRIT 32 % (40-54); HEMOGLOBIN 10.3 G/DL (13.3-17.7); LYMPHOCYTES # (AUTO) 2.7 X 10^3 (1.0-4.0); LYMPHOCYTES % (AUTO) 23 % (12-44); MEAN CORPUSCULAR HGB CONC 32 G/DL (32-36); MEAN CORPUSCULAR VOLUME 89 FL (80-99); MEAN PLATELET VOLUME 9.4 FL (7.4-10.4); MONOCYTES # (AUTO) 1.2 X 10^3 (0.0-1.0); MONOCYTES % (AUTO) 11 % (0-12); NEUTROPHILS # (AUTO) 7.2 X 10^3 (1.8-7.8); NEUTROPHILS % (AUTO) 63 % (42-75); PLATELET COUNT 376 10^3/uL (130-400); WHITE BLOOD COUNT 11.5 10^3/uL (4.3-11.0)
[2018-10-23 05:47] LABS: MEAN CORPUSCULAR HEMOGLOBIN 28 PG (25-34)
[2018-10-23 05:58] LABS: INR 2.1 (0.8-1.4); PROTHROMBIN TIME PATIENT 24.4 SEC (12.2-14.7)
[2018-10-23 06:03] LABS: BUN/CREATININE RATIO 16; CALCIUM 10.7 MG/DL (8.5-10.1); CARBON DIOXIDE 25 MMOL/L (21-32); CHLORIDE 100 MMOL/L (98-107); CREATININE SERUM 0.86 MG/DL (0.60-1.30); GFR ESTIMATED > 60; GLUCOSE 88 MG/DL (70-105); PHOSPHORUS 3.3 MG/DL (2.3-4.7); POTASSIUM 5.2 MMOL/L (3.6-5.0); SODIUM 134 MMOL/L (135-145)
--- NOTE | 2018-10-23 06:40 | NUR ---
no change to hep gtt pp
[2018-10-23 08:00] VITALS: BP 125/79
--- NOTE | 2018-10-23 09:01 | Progress Note ---
Objective Exam Last Set of Vital Signs Vital Signs Date Time Temp Pulse Resp B/P (MAP) Pulse Ox O2 Delivery O2 Flow Rate FiO2 10/23/18 07:27 96 Nasal Cannula 3.00 10/23/18 03:58 97.7 66 22 101/62 (75) 10/19/18 12:38 36 Capillary Refill : Less Than 3 Seconds I&O Intake and Output 10/23/18 00:00 Intake Total 1445 ml Output Total 2000 ml Balance -555 ml Intake Oral 1445 ml Output Urine Total 2000 ml General: Alert, Oriented X3, Cooperative, No Acute Distress HEENT: Atraumatic, PERRLA Neck: Supple Lungs: Other (CLEAR IN UPPER LUNG LAW AND DECREASED IN LEFT BASE, IMPROVED IN RIGHT BASE - CRACKLES IN BASES) Heart: Other (IRREGULARLY IRREGULAR) Abdomen: Normal Bowel Sounds, Soft, No Tenderness Extremities: No Clubbing, No Cyanosis Skin: No Rashes Neuro: Cranial Nerves 3-12 NL Psych/Mental Status: Mental Status NL, Mood NL Results Lab Laboratory Tests 10/22/18 10:51: Glucometer 133H 10/22/18 16:10: Activated Partial Thromboplast Time 79H 10/22/18 16:27: Glucometer 135H 10/22/18 20:43: Glucometer 185H 10/23/18 05:27: Glucometer 97 10/23/18 05:36: White Blood Count 11.5H, Red Blood Count 3.62L, Hemoglobin 10.3L, Hematocrit 32L , Mean Corpuscular Volume 89, Mean Corpuscular Hemoglobin 28, Mean Corpuscular Hemoglobin Concent 32, Red Cell Distribution Width 17.0H, Platelet Count 376, Mean Platelet Volume 9.4, Neutrophils (%) (Auto) 63, Lymphocytes (%) (Auto) 23, Monocytes (%) (Auto) 11, Eosinophils (%) (Auto) 2, Basophils (%) (Auto) 1, Neutrophils # (Auto) 7.2, Lymphocytes # (Auto) 2.7, Monocytes # (Auto) 1.2H, Eosinophils # (Auto) 0.2, Basophils # (Auto) 0.1, Prothrombin Time 24.4H, INR Comment 2.1H, Activated Partial Thromboplast Time 109H, Sodium Level 134L, Pota ssium Level 5.2H, Chloride Level 100, Carbon Dioxide Level 25, Anion Gap 9, Blood Urea Nitrogen 14, Creatinine 0.86, Estimat Glomerular Filtration Rate > 60, BUN/Creatinine Ratio 16, Glucose Level 88, Calcium Level 10.7H, Phosphorus Level 3.3, Magnesium Level 2.0 Microbiology 10/17/18 Gram Stain - Final, Complete 10/17/18 Sputum Culture - Final, Complete Gram Pos Mixed Bacterial Bridget Assessment/Plan Assessment/Plan Assess & Plan/Chief Complaint PULMONARY HEMORRHAGE KLEBSIELLA PNEUMONIA ENTEROBACTER AEROGENES PULMONARY EMBOLI - -RIGHT SIDED PULMONARY EDEMA ATRIAL FIBRILLATION HYPERTENSION HYPERLIPIDEMIA ULCERATIVE COLITIS GENERALIZED WEAKNESS INSOMNIA CHRONIC ANTICOAGULATION USE BPH CRITICAL CARE MYOPATHY EMPHYSEMA HYPOMAGNESEMIA HYPOKALEMIA DIARRHEA ANEMIA RECTAL PAIN PULMONARY HEMORRHAGE WITH KLEBSIELLA PNEUMONIA AND ENTEROBACTER AEROGENES - - KLEBSIELLA SEEMS TO BE RESOLVED - ZOSYN STOPPED AND ENTEROBACTER TO BE TREATED WITH MEROPENEM - AND THIS CULTURE REPORT SHOWED SENSITIVITY TO THE MEROPENEM. WAITING ON REPEAT SPUTUM CULTURE PULMONARY EMBOLI - FOUND ON CT SCAN - THE PT WAS STARTED ON HEPARIN DRIP - HE WILL BE VERY CLOSELY MONITORED TO SEE IF HE HAS AN RECURRENT HEMORRHAGE ON ANTICOAGULATION. WE WILL HAVE TO DISCUSS IF IT IS AN OPTION TO PUT YEHUDA ON A DIFFERENT ANTICOAGULANT ORALLY - DISCUSSION WITH DR. BERNAL AND DR. HESS WILL START HIM ON COUMADIN ON SUNDAY NIGHT. ATRIAL FIBRILLATION - -ASPIRIN HELD DUE TO RECURRENT PULMONARY HEMORRHAGE, ELIQUIS HAD TO BE STOPPED DUE TO RECURRENT PULMONARY HEMORRHAGES. - DEFER OTHER TREATMENT TO ANIMAL CONTROL SPECIALIST - DR. BERNAL ON FOR DR. JUNIOR - WE HAVE DISCUSSED IN THE FUTURE THE WATCHMAN DEVICE. HYPERTENSION - CONTINUE WITH METOPROLOL ORALLY HYPERLIPIDEMIA - STABLE - CONTINUE TO HOLD STATIN DUE TO HIS CRITICAL ILLNESS M YOPATHY ULCERATIVE COLITIS - RESTARTED LIALDA - HELD TODAY DUE TO POSSIBLE CDIFF GENERALIZED WEAKNESS -PT WAS ADMITTED TO INPT REHAB FOR THERAPY FOR STRENGTHENING. EMPHYSEMA - DX ON HIS CT SCAN - HE WILL NEED CONTINUED TREATMENT OF HIS ILLNESS WITH DR. HESS AN OUTPATIENT. INSOMNIA - RESTARTED HIS HOME MELATONIN DOSING. BPH - RESTARTED TAMSULOSIN. HYPOMAGNESEMIA - IMPROVED MONITOR LABS HYPOKALEMIA - STABLE DIARRHEA - PT HAS KNOWN ULCERATIVE COLITIS - - NOW RECTAL PAIN - WILL HAVE TO GIVE PROCTOFOAM AND LIDOCAINE TREMOR DUE TO STEROIDS ELEVATED BLOOD GLUCOSE DUE TO STEROIDS PT TO HAVE AN INCREASE IN THERAPY TODAY - DISCUSSED WITH THERAPY STAFF - GET PT OUT OF BED AND MOBILIZE MORE TODAY. PT HAS BEEN WEARING HIS DENTURES 24 HOURS/DAY - I HAVE ADVISED TO TAKE OUT DENTURES, LEAVE OUT AT BEDTIME, WASH REALLY WELL/BRUSH/SOAK WELL AND THEN MAY RETURN THEM TO HIS MOUTH TODAY. I AM WONDERING IF SOME OF THE BACTERIA COULD BE COMING FROM HIS UNCLEAN DENTURES. CT OF CHEST FROM 10/15/18 MORNING Impression: 1. Moderately extensive acute pulmonary emboli in multiple segmental vessels in the right lung. 2. Worsened bilateral groundglass and interstitial opacities most likely representing moderate pulmonary edema. Critical findings were communicated to LEIDA Herrera by Dr. Upton at 920 on 10/15/2018 Clinical Quality Measures Admission Status Admission Dx PULMONARY HEMORRHAGE KELBSIELLA PNEUMONIA ATRIAL FIBRILLATION HYPERTENSION HYPERLIPIDEMIA ULCERATIVE COLITIS GENERALIZED WEAKNESS INSOMNIA CHRONIC ANTICOAGULATION USE BPH CRITICAL CARE MYOPATHY EMPHYSEMA HYPOMAGNESEMIA HYPOKALEMIA DIARRHEA ANEMIA DVT/VTE Risk/Contraindication: Risk Factor Score Per Nursin CODEY BARILLAS MD Oct 23, 2018 09:00
[2018-10-23] MEDS: LOSARTAN 50 MG (COZAAR) TAB PO SCH (09:27)
[2018-10-23] MEDS: meTOprolol TARTRATE 25 MG (LOPRESSOR) TABLET PO SCH ×2 (09:27→20:18)
[2018-10-23] MEDS: SPIRONOLACTONE 25 MG (ALDACTONE) TAB PO SCH (09:27)
[2018-10-23] MEDS: DILTIAZEM 120 MG (CARDIZEM CD) CAP PO SCH (09:27)
[2018-10-23] MEDS: HYDROCORTISONE/PRAM 1% CREAM 30 GM TUBE TOP SCH ×3 (09:28→20:15)
[2018-10-23] MEDS: DULoxetine 20 MG (CYMBALTA) CAP PO SCH ×2 (09:28→20:18)
[2018-10-23] MEDS: DIPHENOXYLATE/ATROPINE 2.5MG/0.025MG (LOMOTIL) TAB PO SCH ×2 (09:31→20:19)
[2018-10-23] MEDS ORDERED: traZODone 50 MG (DESYREL) TAB PO PRN (09:45)
--- NOTE | 2018-10-23 10:44 | Physical Therapy Daily Note ---
PT Daily Note-Current Subjective Patient in bed pre tx, agrees to PT, has no complaints of pain at rest. Agrees to get into recliner, will put ze sling under him so nursing can get him back. Appearance Patient in recliner post tx with nurse call, phone, tray, in room. Mental Status Patient Orientation: Normal For Age Attachments: Oxygen, Head Catheter, IV Transfers Therapy Code Descriptions/Definitions Functional [place] Measure: 0=Not Assessed/NA 4=Minimal Assistance 1=Total Assistance 5=Supervision or Setup 2=Maximal Assistance 6=Modified [place] 3=Moderate Assistance 7=Complete [place] Therapy Quality Codes: 6 Independent with activity with or without an assistive device 5 Patient requires set up or clean up by helper. Patient completes activity by themselves 4 Supervision or touching assist (CGA). [place] provide cues , steadying assist 3 The helper provides less than half the effort to complete the activity 2 The helper provides more than half the effort to complete the activity 1 Dependent. The helper does all the effort to complete an activity 7 Patient refused to complete or attempt activity 9 The patient did not perform the activity before the current illness or injury 88 Not attempted due to Medical conditions or safety concerns Transfers (B, C, W/C) (FIM): 1 Scootin Rollin Supine to/from Sit: 3 Sit to/from Stand: 1 Bed to/from Chair: 1 Dependent stand pivot transfer to recliner, he doesn't seem to be able to bear any weight through his legs but can assist with his arms some. Weight Bearing Right Lower Extremity: Right Weight Bearing/Tolerated Left Lower Extremity: Left Weight Bearing/Tolerated Exercises Seated Therapy Exercises: Ankle pumps, Long arc quads, Hip flexion Seated Reps: 15 Assessment Current Status: Poor Progress severely impaired mobility PT Short Term Goals Short Term Goals Time Frame: Oct 26, 2018 Transfers (B,C,W/C) (FIM): 4 Gait (FIM): 1 Distance (FIM): 1=up to 49 ft Gait Distance Comment: 45' Gait Level of Assist: 4 Gait Assistive Device: FWW PT Steam Oven Operator Goals Fpc Goals PT Fpc Goals Time Frame: Nov 09, 2018 Transfers (B,C,W/C) (FIM): 6 Sit to Lying (QC): 6 Lying-Sitting on Side/Bed(QC): 6 Sit to Stand (QC): 6 Rollin Roll Left to Right (QC): 6 Chair/Hiv-xa-Xveac Xfer(QC): 6 Car Transfer (QC): 6 Does the Patient Walk: Yes Gait (FIM): 2 Gait distance (FIM): 1=123-67 ft Distance: 125' Walk 10 feet (QC): 5 Walk 10ft-Uneven Surface(QC): 5 Walk 50ft with 2 Turns (QC): 5 Gait Level of Assist: 5 Gait Assistive Device: FWW Stairs (FIM): 2 # of Steps: 4 1 Step (curb) (QC): 5 4 Steps (QC): 5 12 Steps (QC): 9 Stairs Level Of Assist: 5 Picking up an Object (QC): 5 PT Plan Problem List Problem List: Activity Tolerance, Functional Strength, Safety, Balance, Gait, Transfer, Bed Mobility, ROM Treatment/Plan Treatment Plan: Continue Plan of Care Treatment Plan: Bed Mobility, Education, Functional Activity [place], Functional Strength, Gait, Safety, Therapeutic Exercise, Transfers Treatment Duration: Nov 09, 2018 Frequency: 11 times per week Estimated Hrs Per Day: .5 hour per day Patient and/or Family Agrees t: Yes Safety Risks/Education Patient Education: Transfer Techniques, Correct Positioning, Safety Issues Teaching Recipient: Patient Teaching Methods: Demonstration, Discussion Response to Teaching: Reinforcement Needed Time/GCodes Time In: 1000 Time Out: 1026 Total Billed Treatment Time: 26 Total Billed Treatment 1 visit EX 10' FA 16' MARIA ELENA ESQUIVEL PT Oct 23, 2018 10:44
--- NOTE | 2018-10-23 11:23 | Pulmonary Progress Note ---
Subjective Time Seen by a Provider: 11:22 Subjective/Events-last exam Pt feels stronger today. Sepsis Event Evaluation Height, Weight, BMI Height: 5'6.00" Weight: 174lbs. 4.0oz. 79.295739zr; 33.1 BMI Method:Stated Exam Exam Vital Signs Date Time Temp Pulse Resp B/P (MAP) Pulse Ox O2 Delivery O2 Flow Rate FiO2 10/23/18 08:00 97.7 66 16 125/79 (94) 96 NIV CPAP 4.00 10/23/18 07:27 96 Nasal Cannula 3.00 10/23/18 03:58 97.7 66 22 101/62 (75) 94 NIV CPAP 4.00 10/23/18 02:42 92 NIV CPAP 4.00 10/23/18 00:00 97.8 62 22 101/64 (76) 94 NIV CPAP 4.00 10/22/18 21:41 95 NIV CPAP 4.00 10/22/18 20:16 97.5 62 18 99/63 (75) 96 Nasal Cannula 3.00 10/22/18 18:44 95 High Flow N/C 4.00 10/22/18 18:44 62 97 10/22/18 16:00 97.0 64 18 119/75 (90) 97 NIV CPAP 4.00 10/22/18 15:30 95 NIV CPAP 4.00 10/22/18 12:00 98.5 64 16 96/67 (77) 98 NIV Bilevel 3.00 I & O 10/23/18 07:00 Intake Total 1545 ml Output Total 2600 ml Balance -1055 ml Height & Weight Height: 5'6.00" Weight: 174lbs. 4.0oz. 79.919454iz; 33.1 BMI Method:Stated General Appearance: No Apparent Distress HEENT: PERRL/EOMI, TMs Normal, Normal ENT Inspection, Pharynx Normal Neck: Full Range of Motion, Supple Respiratory: Chest Non Tender, Other (Few scattered rhonchi noted with no wheezes breath sounds are coarse good air movement) Cardiovascular: Systolic Murmur (1-2/6 noted over the aortic outflow tract no diastolic murmurs noted.), Irregularly Irregular Extremity: Normal Capillary Refill, Normal Range of Motion, Non Tender, No Pedal Edema Neurologic/Psychiatric: Alert, Oriented x3 Skin: Warm/Dry, Pallor Results Lab Laboratory Tests 10/22/18 05:40 10/23/18 05:36 Assessment/Plan Assessment/Plan Acute bilateral PE - Coumadin -Pt developed pulmonary hemorrhage with Eliquis Klebsiella PNA - Merrem Pulmonary hemorrhage - resolved Afib Generalized weakness JUAN HESS DO Oct 23, 2018 11:23
--- NOTE | 2018-10-23 11:25 | Pulmonary Progress Note ---
Subjective Time Seen by a Provider: 11:24 Subjective/Events-last exam PT did better with PT/OT yesterday. Sepsis Event Evaluation Height, Weight, BMI Height: 5'6.00" Weight: 174lbs. 4.0oz. 79.985489gh; 33.1 BMI Method:Stated Exam Exam Vital Signs Date Time Temp Pulse Resp B/P (MAP) Pulse Ox O2 Delivery O2 Flow Rate FiO2 10/23/18 08:00 97.7 66 16 125/79 (94) 96 NIV CPAP 4.00 10/23/18 07:27 96 Nasal Cannula 3.00 10/23/18 03:58 97.7 66 22 101/62 (75) 94 NIV CPAP 4.00 10/23/18 02:42 92 NIV CPAP 4.00 10/23/18 00:00 97.8 62 22 101/64 (76) 94 NIV CPAP 4.00 10/22/18 21:41 95 NIV CPAP 4.00 10/22/18 20:16 97.5 62 18 99/63 (75) 96 Nasal Cannula 3.00 10/22/18 18:44 95 High Flow N/C 4.00 10/22/18 18:44 62 97 10/22/18 16:00 97.0 64 18 119/75 (90) 97 NIV CPAP 4.00 10/22/18 15:30 95 NIV CPAP 4.00 10/22/18 12:00 98.5 64 16 96/67 (77) 98 NIV Bilevel 3.00 I & O 10/23/18 07:00 Intake Total 1545 ml Output Total 2600 ml Balance -1055 ml Height & Weight Height: 5'6.00" Weight: 174lbs. 4.0oz. 79.110851wn; 33.1 BMI Method:Stated General Appearance: No Apparent Distress HEENT: PERRL/EOMI, TMs Normal, Normal ENT Inspection, Pharynx Normal Neck: Full Range of Motion, Supple Respiratory: Chest Non Tender, Other (Few scattered rhonchi noted with no wheezes breath sounds are coarse good air movement) Cardiovascular: Systolic Murmur (1-2/6 noted over the aortic outflow tract no diastolic murmurs noted.), Irregularly Irregular Extremity: Normal Capillary Refill, Normal Range of Motion, Non Tender, No Pedal Edema Neurologic/Psychiatric: Alert, Oriented x3 Skin: Warm/Dry, Pallor Results Lab Laboratory Tests 10/22/18 05:40 10/23/18 05:36 Assessment/Plan Assessment/Plan Acute bilateral PE - Coumadin -Pt developed pulmonary hemorrhage with Eliquis Klebsiella PNA -s/p Merrem Pulmonary hemorrhage - resolved Afib Generalized weakness JUAN HESS DO Oct 23, 2018 11:25
--- NOTE | 2018-10-23 11:50 | NUR ---
ALEXANDER CATHETER CLAMPED AT [address] BARILLAS'S INSTRUCTIONS. 1145 - PATIENT STATES HE FEELS PRESSURE AND BELIEVES HE NEEDS TO VOID. BLADDER SCANNED AND 131 FOUND IN BLADDER. ALEXANDER CATHETER UNCLAMPED. PLAN IS TO REMOVE ALEXANDER AT 4PM TODAY PER DR. BARILLAS'S ORDERS.
--- NOTE | 2018-10-23 11:53 | Diagnostic Imaging Report ---
Portable erect AP chest at 10:05. Indication: Shortness of breath. The cardiomegaly, the sternotomy wires, Surgiclips, and left-sided pacemaker and on the prior exam of 10/17/2018 are again evident and not significantly changed. Also as on the prior study there are diffuse alveolar/interstitial pulmonary infiltrates bilaterally. Overall these have not changed significantly although the right lung base may be slightly better aerated. The mediastinum is not widened. The osseous structures are intact. Impression: There is persistent cardiomegaly and diffuse alveolar/interstitial pulmonary infiltrates. The right lung base may be slightly better aerated. A followup study would be recommended for continued evaluation. Dictated by: Dictated on workstation # [id number]
[2018-10-23 12:00] VITALS: BP 107/66
--- NOTE | 2018-10-23 13:14 | Occupational Ther Daily Note ---
OT Current Status-Daily Note Subjective Pt. reports that his bottom area is sore. Nursing applies to cream for him. No other pain reported. Appearance Pt. up in chair. Is requesting to get back into bed. Mental Status/Objective Patient Orientation: Person, Place, Time, Situation Therapy Code Descriptions/Definitions Functional [place] Measure: 0=Not Assessed/NA 4=Minimal Assistance 1=Total Assistance 5=Supervision or Setup 2=Maximal Assistance 6=Modified [place] 3=Moderate Assistance 7=Complete [place] Attachments: IV, Oxygen ADL-Treatment Therapy Code Descriptions/Definitions Functional [place] Measure: 0=Not Assessed/NA 4=Minimal Assistance 1=Total Assistance 5=Supervision or Setup 2=Maximal Assistance 6=Modified [place] 3=Moderate Assistance 7=Complete [place] Therapy Quality Codes: 6 Independent with activity with or without an assistive device 5 Patient requires set up or clean up by helper. Patient completes activity by themselves 4 Supervision or touching assist (CGA). [place] provide cues , steadying assist 3 The helper provides less than half the effort to complete the activity 2 The helper provides more than half the effort to complete the activity 1 Dependent. The helper does all the effort to complete an activity 7 Patient refused to complete or attempt activity 9 The patient did not perform the activity before the current illness or injury 88 Not attempted due to Medical conditions or safety concerns Transfers (B, C, W/C) (FIM): 1 Other Treatment Pt. up in chair. Pt. requires dependent x 2 for sit-stand and pivot to bed. Dependent x 2 for bed mobility and positioning. OT assisted with LE exercises and strengthening, as this is pt's goal and request for ADL activity. Completed 5 bilateral LE exercises x 10 reps each, against resistance, in all planes. Pt. encouraged and instructed on how to attempt positioning self in bed. Pt. utilized foot to push against bed so that he could clear his bottom. He is having difficulty with this. SCDs applied and all needs met for pt's comfort level. Education OT Patient Education: Correct positioning, Exercise program, Progress toward Goal/Update tx plan, Purpose of tx/functional activities, Reviewed precautions, Rehab process, Transfer techniques Teaching Recipient: Patient Teaching Methods: Demonstration, Discussion Response to Teaching: Verbalize Understanding, Return Demonstration OT Short Term Goals Short Term Goals Time Frame: Oct 25, 2018 Grooming(FIM): 4 Bathing(FIM): 4 Lower Body Dressing(FIM): 3 Transfers (B,C,W/C) (FIM): 4 Additional Short Term Goals: 1-Demonstrate ADL Tasks, 2-Verbalize Understanding, 3-ImproveStrength/Gilbert 1=Demonstrate adherence to instructed precautions during ADL tasks. 2=Patient will verbalize/demonstrate understanding of assistive de vices/modifications for ADL. 3=Patient will improve strength/tolerance for activity to enable patient to perform ADL's. OT Composition Weatherboard Installer Goals Intermediate Goals Time Frame: Nov 08, 2018 Eating (FIM): 6 Eating (QC): 6 Groomin Oral Hygiene (QC): 5 Bathing(FIM): 5 Shower/Bathe Self (QC): 5 Upper Body Dressing(FIM): 5 Upper Body Dressing (QC): 5 Lower Body Dressing(FIM): 5 Lower Body Dressing (QC): 5 On/Off Footwear (QC): 5 Toileting(FIM): 5 Toileting Hygiene (QC): 5 Transfers (B,C,W/C) (FIM): 5 Toilet/Commode Transfer(FIM): 5 Toilet/Commode Transfer (QC): 5 Shower Transfer(FIM): 5 Additional Goals: 1-Demonstrate ADL Tasks, 2-Verbalize Understanding, 3- ImproveStrength/Gilbert 1=Demonstrate adherence to instructed precautions during ADL tasks. 2=Patient will verbalize/demonstrate understanding of assistive devices/modifications for ADL. 3=Patient will improve strength/tolerance for activity to enable patient to perform ADL's. OT Education/Plan Problem List/Assessment Assessment: Decreased Activ Tolerance, Decreased UE Strength, Dependent Jones sfers, Impaired Bed Mobility, Impaired Funct Balance, Impaired I ADL's, Impaired Self-Care Skills, Restricted Funct UE ROM Discharge Recommendations Plan/Recommendations: Continue POC Treatment Plan/Plan of Care Treatment,Training & Education: Yes Patient would benefit from OT for education, treatment and training to promote independence in ADL's, mobility, safety and/or upper extremity function for ADL's. Plan of Care: ADL Retraining, Caregiver Training, Concurrent Therapy, Functional Mobility, Group Exercise/Act as Ind, UE Funct Exercise/Act Treatment Duration: Nov 08, 2018 Frequency: 5 times per week Estimated Hrs Per Day: .5 hour per day Agreement: Yes Rehab Potential: Fair Time/GCodes Start Time: 11:50 Stop Time: 12:15 Total Time Billed (hr/min): 25 Billed Treatment Time 1, FA x 10minutes, Ex x 15minutes ANURAG HENRIQUEZ OT Oct 23, 2018 13:13
--- NOTE | 2018-10-23 14:04 | Cardiology Progress Note ---
Cardiology SOAP Progress Note Subjective: Slow improvement in shortness of breath. Objective: I&O/Vital Signs 10/23/18 10/23/18 10/23/18 10/23/18 02:42 03:58 07:27 08:00 Temp 97.7 Pulse 66 Resp 22 B/P (MAP) 101/62 (75) Pulse Ox 92 94 96 O2 Delivery NIV CPAP NIV CPAP Nasal Cannula Nasal Cannula O2 Flow Rate 4.00 4.00 3.00 3.00 10/23/18 10/23/18 10/23/18 08:00 11:14 12:00 Temp 97.7 97.4 Pulse 66 67 Resp 16 16 B/P (MAP) 125/79 (94) 107/66 (80) Pulse Ox 96 98 98 O2 Delivery NIV CPAP Nasal Cannula NIV CPAP O2 Flow Rate 4.00 3.00 4.00 10/22/18 23:59 Intake Total 1245 ml Output Total 1600 ml Balance -355 ml Weight (Pounds): 174 Weight (Ounces): 4.0 Weight (Calculated Kilograms): 79.296395 Constitutional: AAO x 3, apparent distress Respiratory: accessory muscle use, chest is bilaterally symmetric, lungs clear to auscultation Cardiovascular: regular rate-rhythm; No irregularly irregular, No extra beats, No parasternal heave is noted, No JVD, No edema, No bradycardia, No tachycardia, No point of maximal impulse, No cardiac thrills are palpable; S1 and S2; No gallop/S3, No gallop/S4, No diastolic murmur, No systolic murmur, No friction rub, No click, No other Gastrointestional: No tender, No soft, No round, No distended, No pulsatile mass, No organomegaly, No guarding, No rebound, No tenderness, No hernia, No mass, No audible bowel sounds, No abnormal bowel sounds, No abdominal bruits, No spleenomegaly, No other Extremities: No normal range of motion, No non-tender, No normal inspection, No pedal edema, No calf tenderness, No normal capillary refill, No pelvis stable, No calf tenderness, No inflammation, No pedal edema, No slow capillary refill, No swelling, No other, No abrasion, No clubbing, No cyanosis, No ecchymosis, No laceration, No no lower extremity edema bilateral, No significant edema, No tenderness, No wound Neurologic/Psychiatric: no motor/sensory deficits, alert, normal mood/affect, oriented x 3 Results/Procedures: Labs Laboratory Tests 10/22/18 16:10: Activated Partial Thromboplast Time 79H 10/22/18 16:27: Glucometer 135H 10/22/18 20:43: Glucometer 185H 10/23/18 05:27: Glucometer 97 10/23/18 05:36: White Blood Count 11.5H, Red Blood Count 3.62L, Hemoglobin 10.3L, Hematocrit 32L , Mean Corpuscular Volume 89, Mean Corpuscular Hemoglobin 28, Mean Corpuscular Hemoglobin Concent 32, Red Cell Distribution Width 17.0H, Platelet Count 376, Mean Platelet Volume 9.4, Neutrophils (%) (Auto) 63, Lymphocytes (%) (Auto) 23, Monocytes (%) (Auto) 11, Eosinophils (%) (Auto) 2, Basophils (%) (Auto) 1, Neutrophils # (Auto) 7.2, Lymphocytes # (Auto) 2.7, Monocytes # (Auto) 1.2H, Eosinophils # (Auto) 0.2, Basophils # (Auto) 0.1, Prothrombin Time 24.4H, INR Comment 2.1H, Activated Partial Thromboplast Time 109H, Sodium Level 134L, Potassium Level 5.2H, Chloride Level 100, Carbon Dioxide Level 25, Anion Gap 9, Blood Urea Nitrogen 14, Creatinine 0.86, Estimat Glomerular Filtration Rate > 60, BUN/Creatinine Ratio 16, Glucose Level 88, Calcium Level 10.7H, Phosphorus Level 3.3, Magnesium Level 2.0 10/23/18 11:04: Glucometer 104 Microbiology 10/17/18 Gram Stain - Final, Complete 10/17/18 Sputum Culture - Final, Complete Gram Pos Mixed Bacterial Bridget A/P: Assessment/Dx: pulmonary embolism, pulmonary hemorrhage. Weakness and malaise and low grade fever and leucocytosis, systemic infection suspected, managed by Dr Saravia Relatively low bp lately necessitating d/c diltiazem and reduction in beta- sita. BP has since been better Hemoptysis and pulmonary hemorrhage necessitating discontinuation of Eliquis and aspirin in mid-August 2018; low-dose aspirin reinitiated on 10/01/18 Echo of 09/19/18: LVEF 60-65%, biatrial enlargement, mod MR, mild to mod TR, RVSP 45 mmHg 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 Cardiac cath from December 30, 2013 in which successful GAURI x 2, one to the proximal and one to the mid vessel LAD, was done. 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 Pacemaker currently in the VVIR mode, due to permanent atrial fib. The patient had a pulse generator change out on 12/18/2011. The device is functioning normally per last interrogation of September 23, 2018 (DIMITRIOS estimate 11 months) History of ulcerative colitis, being managed by Dr. Parsons and Dr. Seymour Stroke prophylaxis with Eliquis - currently being held d/t hemoptysis Sleep apnea for which he is following with Dr Mijares - Bi-pap therapy Hyperlipidemia being treated with rosuvastatin. Mild carotid arterial disease that has been followed by Dr. Mcdaniel History of cholecystectomy. 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 * Continue long-acting diltiazem - adjust dose as indicated * Monitor labs * patient is not a good candidate for oral anticoagulation due to pulmonary hemorrhage. May consider watchman device as an outpatient for stroke prevention in a patient with atrial fibrillation. * Pulmonary embolism, on IV heparin, transitioning to Coumadin. We are not considering IVC filter. Discussed with the patient and family. Dr. Parsons agrees as well. Currently the patient is improving and lower extremity ultrasound did not show any significant DVT. Thank you for your consultation. Please call me if you have any questions. Naren Raines MD, FACP, FACC, FSCAI, FHRS, CCDS Interventional Cardiology Cardiac Electrophysiology Vascular Medicine and Endovascular Interventions Deepak RAINES MD Oct 23, 2018 14:04
[2018-10-23 15:58] VITALS: BP 117/74
--- NOTE | 2018-10-23 17:30 | NUR ---
ALEXANDER CATHETER REMOVED PER DR. BARILLAS'S ORDERS. PATIENT TOLERATED WELL. URINAL PLACED BETWEEN PATIENT'S LEG. WILL CONTINUE TO MONITOR FOR URINATION AND RETENTION.
[2018-10-23] MEDS: warFARin 2 MG (COUMADIN) TAB PO SCH (17:41)
[2018-10-23] MEDS: TAMSULOSIN 0.4 MG (FLOMAX) CAP PO SCH (17:41)
[2018-10-23 19:50] VITALS: BP 110/67
[2018-10-23] MEDS: MESALAMINE PO SCH (20:16)
[2018-10-23] MEDS: diphenhydrAMINE 25 MG TAB (BENADRYL) PO PRN (20:18)
[2018-10-24] VITALS (7 sets, daily range): BP systolic 123–148; BP diastolic 64–79
[2018-10-24] MEDS: RT-ALBUTEROL/IPRATROPIUM 3 ML (DUONEB) VIAL INH SCH ×6 (02:32→22:38)
[2018-10-24] MEDS: ALBUMIN 25% 25 GM/100 ML 50 ML IV SCH (05:11)
[2018-10-24] MEDS: PANTOPRAZOLE 40 MG (PROTONIX) TAB PO SCH (05:13)
[2018-10-24] MEDS: LACTOBACILLUS ACIDOPHILUS (PROBIOTIC) CAPSULE PO SCH ×2 (05:13→18:02)
[2018-10-24] MEDS: inSUlin ASPART (NovoLOG) 1 UNIT/0.01 ML (CHARGE PER UNIT) SC SCH ×4 (06:14→21:23)
[2018-10-24 06:34] LABS: BASOPHILS # (AUTO) 0.1 10^3/uL (0.0-0.1); BASOPHILS % (AUTO) 1 % (0-10); EOSINOPHILS # (AUTO) 0.2 10^3/uL (0.0-0.3); EOSINOPHILS % (AUTO) 2 % (0-10); HEMATOCRIT 32 % (40-54); HEMOGLOBIN 10.1 G/DL (13.3-17.7); LYMPHOCYTES # (AUTO) 2.3 X 10^3 (1.0-4.0); LYMPHOCYTES % (AUTO) 22 % (12-44); MEAN CORPUSCULAR HEMOGLOBIN 29 PG (25-34); MEAN CORPUSCULAR HGB CONC 32 G/DL (32-36); MEAN CORPUSCULAR VOLUME 89 FL (80-99); MEAN PLATELET VOLUME 9.7 FL (7.4-10.4); MONOCYTES # (AUTO) 1.1 X 10^3 (0.0-1.0); MONOCYTES % (AUTO) 10 % (0-12); NEUTROPHILS % (AUTO) 65 % (42-75); PLATELET COUNT 362 10^3/uL (130-400); WHITE BLOOD COUNT 10.6 10^3/uL (4.3-11.0)
[2018-10-24 06:55] LABS: INR 2.2 (0.8-1.4); PROTHROMBIN TIME PATIENT 25.4 SEC (12.2-14.7)
[2018-10-24 06:57] LABS: BUN/CREATININE RATIO 17; CALCIUM 10.9 MG/DL (8.5-10.1); CARBON DIOXIDE 25 MMOL/L (21-32); CHLORIDE 100 MMOL/L (98-107); CREATININE SERUM 0.82 MG/DL (0.60-1.30); GFR ESTIMATED > 60; GLUCOSE 129 MG/DL (70-105); MAGNESIUM 2.1 MG/DL (1.8-2.4); PHOSPHORUS 2.9 MG/DL (2.3-4.7); POTASSIUM 4.5 MMOL/L (3.6-5.0); SODIUM 135 MMOL/L (135-145)
[2018-10-24] MEDS: SPIRONOLACTONE 25 MG (ALDACTONE) TAB PO SCH (08:03)
[2018-10-24] MEDS: LOSARTAN 50 MG (COZAAR) TAB PO SCH (08:04)
[2018-10-24] MEDS: DILTIAZEM 120 MG (CARDIZEM CD) CAP PO SCH (08:04)
[2018-10-24] MEDS: meTOprolol TARTRATE 25 MG (LOPRESSOR) TABLET PO SCH ×2 (08:05→21:20)
[2018-10-24] MEDS: DIPHENOXYLATE/ATROPINE 2.5MG/0.025MG (LOMOTIL) TAB PO SCH ×2 (08:13→21:20)
[2018-10-24] MEDS: DOCOSANOL 10 % CREAM (ABREVA) 2 GM TP SCH ×5 (08:14→21:23)
[2018-10-24] MEDS: DULoxetine 20 MG (CYMBALTA) CAP PO SCH ×2 (08:15→21:20)
--- NOTE | 2018-10-24 08:41 | Progress Note ---
Subjective Date Seen by a Provider: Oct 24, 2018 Time Seen by a Provider: 08:36 Objective Exam Last Set of Vital Signs Vital Signs Date Time Temp Pulse Resp B/P (MAP) Pulse Ox O2 Delivery O2 Flow Rate FiO2 10/24/18 06:45 97 High Flow N/C 2.00 10/24/18 04:00 98.2 64 18 148/77 (100) 10/19/18 12:38 36 Capillary Refill : Less Than 3 Seconds I&O Intake and Output 10/24/18 00:00 Intake Total 1490 ml Output Total 2425 ml Balance -935 ml Intake Oral 1490 ml Output Urine Total 2425 ml General: Alert, Oriented X3, Cooperative, No Acute Distress HEENT: Atraumatic, PERRLA Neck: Supple Lungs: Other (CLEAR IN UPPER LUNG LAW AND DECREASED IN LEFT BASE, IMPROVED IN RIGHT BASE - CRACKLES IN BASES) Heart: Other (IRREGULARLY IRREGULAR) Abdomen: Normal Bowel Sounds, Soft, No Tenderness Extremities: No Clubbing, No Cyanosis Skin: No Rashes Neuro: Cranial Nerves 3-12 NL Psych/Mental Status: Mental Status NL, Mood NL Results Lab Laboratory Tests 10/23/18 11:04: Glucometer 104 10/23/18 15:58: Glucometer 137H 10/23/18 20:37: Glucometer 156H 10/24/18 05:40: White Blood Count 10.6, Red Blood Count 3.53L, Hemoglobin 10.1L, Hematocrit 32L, Mean Corpuscular Volume 89, Mean Corpuscular Hemoglobin 29, Mean Corpuscular Hemoglobin Concent 32, Red Cell Distribution Width 17.0H, Platelet Count 362, Mean Platelet Volume 9.7, Neutrophils (%) (Auto) 65, Lymphocytes (%) (Auto) 22, Monocytes (%) (Auto) 10, Eosinophils (%) (Auto) 2, Basophils (%) (Auto) 1, Neutrophils # (Auto) 7.0, Lymphocytes # (Auto) 2.3, Monocytes # (Auto) 1.1H, Eosinophils # (Auto) 0.2, Basophils # (Auto) 0.1, Prothrombin Time 25.4H, INR Comment 2.2H, Sodium Level 135, Potassium Level 4.5, Chloride Level 100, Carbon Dioxide Level 25, Anion Gap 10, Blood Urea Nitrogen 14, Creatinine 0.82, Estimat Glomerular Filtration Rate > 60, BUN/Creatinine Ratio 17, Glucose Level 129H, Calcium Level 10.9H, Phosphorus Level 2.9, Magnesium Level 2.1 10/24/18 06:03: Glucometer 175H Microbiology 10/17/18 Gram Stain - Final, Complete 10/17/18 Sputum Culture - Final, Complete Gram Pos Mixed Bacterial Bridget Assessment/Plan Assessment/Plan Assess & Plan/Chief Complaint PULMONARY HEMORRHAGE KLEBSIELLA PNEUMONIA ENTEROBACTER AEROGENES PULMONARY EMBOLI - -RIGHT SIDED PULMONARY EDEMA ATRIAL FIBRILLATION HYPERTENSION HYPERLIPIDEMIA ULCERATIVE COLITIS GENERALIZED WEAKNESS INSOMNIA CHRONIC ANTICOAGULATION USE BPH CRITICAL CARE MYOPATHY EMPHYSEMA HYPOMAGNESEMIA HYPOKALEMIA DIARRHEA ANEMIA RECTAL PAIN PULMONARY HEMORRHAGE WITH KLEBSIELLA PNEUMONIA AND ENTEROBACTER AEROGENES - - KLEBSIELLA HAS RESOLVED - ZOSYN STOPPED AND ENTEROBACTER HAS BEEN TREATED WITH MEROPENEM - AND THIS CULTURE REPORT SHOWED SENSITIVITY TO THE MEROPENEM. REPEAT SPUTUM CULTURE IS NEGATIVE. CHEST XRAY CONTINUES TO SHOW PULMONARY INFILTRATES - BUT HIS SPUTUM CULTURE IS NEGATIVE AND HIS WHITE COUNT HAS IMPROVED - CONTINUE TO MONITOR SYMPTOMS, WAIT ON RESTARTING ANTIBIOTICS AT THIS TIME. PULMONARY EMBOLI - FOUND ON CT SCAN - THE PT WAS STARTED ON HEPARIN DRIP WHICH WAS STOPPED YESTERDAY HIS COUMADIN HAS REACHED THERAPEUTIC ON INR REPORT. HE WILL BE VERY CLOSELY MONITORED TO SEE IF HE HAS AN RECURRENT HEMORRHAGE ON ANTICOAGULATION. ATRIAL FIBRILLATION - -PT HAS BEEN STARTED ON COUMADIN - CONTINUE OTHER RATE CONTROLLING MEDICATIONS. HYPERTENSION - CONTINUE WITH METOPROLOL ORALLY HYPERLIPIDEMIA - STABLE - CONTINUE TO HOLD STATIN DUE TO HIS CRITICAL ILLNESS MYOPATHY - I WOULD ANTICIPATE HOLDING THIS MEDICATION FOR AT LEAST ANOTHER 2-3 MONTHS TO PREVENT A SET-BACK IN RECOVERY. ULCERATIVE COLITIS - RESTARTED LIALDA . CONTINUE WITH PRN IMODIUM. GENERALIZED WEAKNESS -SEVERE WEAKNESS - STILL UNABLE TO STAND UNDER HIS OWN POWER - HE WILL NOT BE SAFE TO RETURN TO HOME IN THIS STATE- WILL HAVE TO SEND [facility] FOR REHABILITATION TO A JAIL FOR SKILLED THERAPIES. EMPHYSEMA - DX ON HIS CT SCAN - HE WILL NEED CONTINUED TREATMENT OF HIS ILLNESS WITH DR. HESS AN OUTPATIENT. INSOMNIA - RESTARTED HIS HOME MELATONIN DOSING. HE HAD BEEN TAKING TRAZODONE TO AIDE SLEEP - WILL SEE HOW HE DID WITHOUT THIS MEDICATION YESTERDAY EVENING. BPH - RESTARTED TAMSULOSIN. HYPOMAGNESEMIA - IMPROVED MONITOR LABS HYPOKALEMIA - STABLE DIARRHEA - PT HAS KNOWN ULCERATIVE COLITIS - prn PROCTOFOAM AND LIDOCAINE Clinical Quality Measures Admission Status Admission Dx PULMONARY HEMORRHAGE KELBSIELLA PNEUMONIA ATRIAL FIBRILLATION HYPERTENSION HYPERLIPIDEMIA ULCERATIVE COLITIS GENERALIZED WEAKNESS INSOMNIA CHRONIC ANTICOAGULATION USE BPH CRITICAL CARE MYOPATHY EMPHYSEMA HYPOMAGNESEMIA HYPOKALEMIA DIARRHEA ANEMIA DVT/VTE Risk/Contraindication: Risk Factor Score Per Nursin CODEY BARILLAS MD Oct 24, 2018 08:41
--- NOTE | 2018-10-24 09:35 | Pulmonary Progress Note ---
Subjective Time Seen by a Provider: 09:33 Subjective/Events-last exam Pt appears improved. Sepsis Event Evaluation Height, Weight, BMI Height: 5'6.00" Weight: 174lbs. 4.0oz. 79.337262pk; 33.1 BMI Method:Stated Exam Exam Vital Signs Date Time Temp Pulse Resp B/P (MAP) Pulse Ox O2 Delivery O2 Flow Rate FiO2 10/24/18 08:00 97.8 62 20 129/71 (90) 92 High Flow N/C 2.00 10/24/18 06:45 97 High Flow N/C 2.00 10/24/18 04:00 98.2 64 18 148/77 (100) 95 High Flow N/C 2.00 10/24/18 02:32 95 NIV CPAP 3.00 10/24/18 00:00 97.5 60 20 131/67 (88) 95 High Flow N/C 2.00 10/23/18 22:01 94 NIV CPAP 4.00 10/23/18 19:50 97.6 63 22 110/67 (81) 94 NIV CPAP 2.00 10/23/18 18:28 92 Nasal Cannula 2.00 10/23/18 15:58 97.2 60 20 117/74 (88) 95 High Flow N/C 2.00 10/23/18 15:10 95 NIV CPAP 4.00 10/23/18 12:00 97.4 67 16 107/66 (80) 98 NIV CPAP 4.00 10/23/18 11:14 98 Nasal Cannula 3.00 I & O 10/24/18 07:00 Intake Total 1390 ml Output Total 1725 ml Balance -335 ml Height & Weight Height: 5'6.00" Weight: 174lbs. 4.0oz. 79.104128bw; 33.1 BMI Method:Stated General Appearance: No Apparent Distress HEENT: PERRL/EOMI, TMs Normal, Normal ENT Inspection, Pharynx Normal Neck: Full Range of Motion, Supple Respiratory: Chest Non Tender, Other (Few scattered rhonchi noted with no wheezes breath sounds are coarse good air movement) Cardiovascular: Systolic Murmur (1-2/6 noted over the aortic outflow tract no diastolic murmurs noted.), Irregularly Irregular Extremity: Normal Capillary Refill, Normal Range of Motion, Non Tender, No Pedal Edema Neurologic/Psychiatric: Alert, Oriented x3 Skin: Warm/Dry, Pallor Results Lab Laboratory Tests 10/23/18 05:36 10/24/18 05:40 Assessment/Plan Assessment/Plan Acute bilateral PE - Coumadin -Pt developed pulmonary hemorrhage with Eliquis S/p Klebsiella PNA Pulmonary hemorrhage - resolved Afib Generalized weakness/debility -PT/OT JUAN HESS DO Oct 24, 2018 09:34
[2018-10-24] MEDS: HYDROCORTISONE/PRAM 1% CREAM 30 GM TUBE TOP SCH ×3 (10:00→21:23)
--- NOTE | 2018-10-24 11:53 | Physical Therapy Daily Note ---
PT Daily Note-Current Subjective Patient in bed pre tx, agrees to PT, has no complaints of pain. Appearance Patient in recliner post tx with nurse call, phone, tray, all needs met. Patient has ze sling under him so nursing can get him back to bed. Mental Status Patient Orientation: Person, Place, Situation, Normal For Age Attachments: Oxygen, IV Transfers Therapy Code Descriptions/Definitions Functional [place] Measure: 0=Not Assessed/NA 4=Minimal Assistance 1=Total Assistance 5=Supervision or Setup 2=Maximal Assistance 6=Modified [place] 3=Moderate Assistance 7=Complete Franklin Therapy Quality Codes: 6 Independent with activity with or without an assistive device 5 Patient requires set up or clean up by helper. Patient completes activity by themselves 4 Supervision or touching assist (CGA). [place] provide cues , steadying assist 3 The helper provides less than half the effort to complete the activity 2 The helper provides more than half the effort to complete the activity 1 Dependent. The helper does all the effort to complete an activity 7 Patient refused to complete or attempt activity 9 The patient did not perform the activity before the current illness or injury 88 Not attempted due to Medical conditions or safety concerns Transfers (B, C, W/C) (FIM): 2 Scootin Rollin Supine to/from Sit: 3 Sit to/from Stand: 2 Bed to/from Chair: 2 Patient was able to bear some weight on his legs during the transfer to recliner. Weight Bearing Right Lower Extremity: Right Weight Bearing/Tolerated Left Lower Extremity: Left Weight Bearing/Tolerated Exercises Seated Therapy Exercises: Ankle pumps, Long arc quads, Hip flexion Treatments bed mobility and transfers, LE exercise Assessment Current Status: Fair Progress improved LE strength PT Short Term Goals Short Term Goals Time Frame: Oct 26, 2018 Transfers (B,C,W/C) (FIM): 4 Gait (FIM): 1 Distance (FIM): 1=up to 49 ft Gait Distance Comment: 45' Gait Level of Assist: 4 Gait Assistive Device: FWW PT Fci Goals Fci Goals PT Fci Goals Time Frame: Nov 09, 2018 Transfers (B,C,W/C) (FIM): 6 Sit to Lying (QC): 6 Lying-Sitting on Side/Bed(QC): 6 Sit to Stand (QC): 6 Rollin Roll Left to Right (QC): 6 Chair/[id number] Xfer(QC): 6 Car Transfer (QC): 6 Does the Patient Walk: Yes Gait (FIM): 2 Gait distance (FIM): 4=648-68 ft Distance: 125' Walk 10 feet (QC): 5 Walk 10ft-Uneven Surface(QC): 5 Walk 50ft with 2 Turns (QC): 5 Gait Level of Assist: 5 Gait Assistive Device: FWW Stairs (FIM): 2 # of Steps: 4 1 Step (curb) (QC): 5 4 Steps (QC): 5 12 Steps (QC): 9 Stairs Level Of Assist: 5 Picking up an Object (QC): 5 PT Plan Problem List Problem List: Activity Tolerance, Functional Strength, Safety, Balance, Gait, Transfer, Bed Mobility, ROM Treatment/Plan Treatment Plan: Continue Plan of Care Treatment Plan: Bed Mobility, Education, Functional Activity Gilbert, Functional Strength, Gait, Safety, Therapeutic Exercise, Transfers Treatment Duration: Nov 09, 2018 Frequency: 11 times per week Estimated Hrs Per Day: .5 hour per day Patient and/or Family Agrees t: Yes Safety Risks/Education Patient Education: Transfer Techniques, Correct Positioning, Safety Issues Teaching Recipient: Patient Teaching Methods: Demonstration, Discussion Response to Teaching: Reinforcement Needed Time/GCodes Time In: 1135 Time Out: 1145 Total Billed Treatment Time: 10 Total Billed Treatment 1 visit FA MARIA ELENA RAMOS PT Oct 24, 2018 11:53
--- NOTE | 2018-10-24 15:10 | Occ Therapy Progress Note ---
Therapy Progress Note OT attempted to treat pt. Pt. sound asleep in bed. OT attempted to awake pt, but he is sleeping well. Spoke with nursing. Pt. has been up in chair until approximately 40 minutes previous to OT entering. Nursing states that pt. was tired up in chair, and transferred back to bed via ze lift. OT allowed pt. to sleep at this time. 1, visit [id number] ANURAG HENRIQUEZ OT Oct 24, 2018 15:10
--- NOTE | 2018-10-24 16:32 | Cardiology Progress Note ---
Cardiology SOAP Progress Note Subjective: gradually improving shortness of breath. Objective: I&O/Vital Signs 10/24/18 10/24/18 10/24/18 10/24/18 06:45 08:00 10:39 12:00 Temp 97.8 97.4 Pulse 62 63 Resp 20 20 B/P (MAP) 129/71 (90) 133/79 (97) Pulse Ox 97 92 93 92 O2 Delivery High Flow N/C High Flow N/C High Flow N/C High Flow N/C O2 Flow Rate 2.00 2.00 1.00 2.00 10/24/18 10/24/18 15:56 16:29 Temp 97.8 Pulse 62 Resp 20 B/P (MAP) 129/71 (90) Pulse Ox 92 92 O2 Delivery High Flow N/C High Flow N/C O2 Flow Rate 1.00 2.00 10/24/18 00:00 Intake Total 1190 ml Output Total 1425 ml Balance -235 ml Weight (Pounds): 174 Weight (Ounces): 4.0 Weight (Calculated Kilograms): 79.632348 Constitutional: AAO x 3, apparent distress Respiratory: accessory muscle use, chest is bilaterally symmetric, lungs clear to auscultation Cardiovascular: regular rate-rhythm; No irregularly irregular, No extra beats, No parasternal heave is noted, No JVD, No edema, No bradycardia, No tachycardia, No point of maximal impulse, No cardiac thrills are palpable; S1 and S2; No gallop/S3, No gallop/S4, No diastolic murmur, No systolic murmur, No friction rub, No click, No other Gastrointestional: No tender, No soft, No round, No distended, No pulsatile mass, No organomegaly, No guarding, No rebound, No tenderness, No hernia, No mass, No audible bowel sounds, No abnormal bowel sounds, No abdominal bruits, No spleenomegaly, No other Extremities: No normal range of motion, No non-tender, No normal inspection, No pedal edema, No calf tenderness, No normal capillary refill, No pelvis stable, No calf tenderness, No inflammation, No pedal edema, No slow capillary refill, No swelling, No other, No abrasion, No clubbing, No cyanosis, No ecchymosis, No laceration, No no lower extremity edema bilateral, No significant edema, No tenderness, No wound Neurologic/Psychiatric: no motor/sensory deficits, alert, normal mood/affect, oriented x 3 Results/Procedures: Labs Laboratory Tests 10/23/18 20:37: Glucometer 156H 10/24/18 05:40: White Blood Count 10.6, Red Blood Count 3.53L, Hemoglobin 10.1L, Hematocrit 32L, Mean Corpuscular Volume 89, Mean Corpuscular Hemoglobin 29, Mean Corpuscular Hemoglobin Concent 32, Red Cell Distribution Width 17.0H, Platelet Count 362, Mean Platelet Volume 9.7, Neutrophils (%) (Auto) 65, Lymphocytes (%) (Auto) 22, Monocytes (%) (Auto) 10, Eosinophils (%) (Auto) 2, Basophils (%) (Auto) 1, Neutrophils # (Auto) 7.0, Lymphocytes # (Auto) 2.3, Monocytes # (Auto) 1.1H, Eosinophils # (Auto) 0.2, Basophils # (Auto) 0.1, Prothrombin Time 25.4H, INR Comment 2.2H, Sodium Level 135, Potassium Level 4.5, Chloride Level 100, Carbon Dioxide Level 25, Anion Gap 10, Blood Urea Nitrogen 14, Creatinine 0.82, Estimat Glomerular Filtration Rate > 60, BUN/Creatinine Ratio 17, Glucose Level 129H, Calcium Level 10.9H, Phosphorus Level 2.9, Magnesium Level 2.1 10/24/18 06:03: Glucometer 175H 10/24/18 11:56: Glucometer 130H 10/24/18 16:17: Glucometer 138H Microbiology 10/17/18 Gram Stain - Final, Complete 10/17/18 Sputum Culture - Final, Complete Gram Pos Mixed Bacterial Bridget A/P: Assessment/Dx: pulmonary embolism, pulmonary hemorrhage. Weakness and malaise and low grade fever and leucocytosis, systemic infection suspected, managed by Dr Saravia Relatively low bp lately necessitating d/c diltiazem and reduction in beta- sita. BP has since been better Hemoptysis and pulmonary hemorrhage necessitating discontinuation of Eliquis and aspirin in mid-August 2018; low-dose aspirin reinitiated on 10/01/18 Echo of 09/19/18: LVEF 60-65%, biatrial enlargement, mod MR, mild to mod TR, RVSP 45 mmHg 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 Cardiac cath from December 30, 2013 in which successful GAURI x 2, one to the proximal and one to the mid vessel LAD, was done. 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 Pacemaker currently in the VVIR mode, due to permanent atrial fib. The patient had a pulse generator change out on 12/18/2011. The device is functioning normally per last interrogation of September 23, 2018 (DIMITRIOS estimate 11 months) History of ulcerative colitis, being managed by Dr. Parsons and Dr. Seymour Stroke prophylaxis with Eliquis - currently being held d/t hemoptysis Sleep apnea for which he is following with Dr Mijares - Bi-pap therapy Hyperlipidemia being treated with rosuvastatin. Mild carotid arterial disease that has been followed by Dr. Mcdaniel History of cholecystectomy. 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 * Continue long-acting diltiazem - adjust dose as indicated * Monitor labs * patient is not a good candidate for oral anticoagulation due to pulmonary hemorrhage. May consider watchman device as an outpatient for stroke preventi on in a patient with atrial fibrillation. * Pulmonary embolism, on IV heparin, transitioning to Coumadin. We are not considering IVC filter. Discussed with the patient and family. Dr. Parsons agrees as well. Currently the patient is improving and lower extremity ultrasound did not show any significant DVT. Thank you for your consultation. Please call me if you have any questions. Naren Raines MD, FACP, FACC, FSCAI, FHRS, CCDS Interventional Cardiology Cardiac Electrophysiology Vascular Medicine and Endovascular Interventions Deepak RAINES MD Oct 24, 2018 16:32
[2018-10-24] MEDS: warFARin 2 MG (COUMADIN) TAB PO SCH (18:03)
[2018-10-24] MEDS: TAMSULOSIN 0.4 MG (FLOMAX) CAP PO SCH (18:03)
[2018-10-24] MEDS: MESALAMINE PO SCH (21:22)
[2018-10-25 00:59] VITALS: BP 141/80
[2018-10-25] MEDS: RT-ALBUTEROL/IPRATROPIUM 3 ML (DUONEB) VIAL INH SCH ×2 (03:16→07:40)
[2018-10-25 04:00] VITALS: BP 145/76
[2018-10-25] MEDS: inSUlin ASPART (NovoLOG) 1 UNIT/0.01 ML (CHARGE PER UNIT) SC SCH ×2 (06:20→11:29)
[2018-10-25] MEDS: LACTOBACILLUS ACIDOPHILUS (PROBIOTIC) CAPSULE PO SCH (06:20)
[2018-10-25] MEDS: PANTOPRAZOLE 40 MG (PROTONIX) TAB PO SCH (06:20)
[2018-10-25] MEDS: DOCOSANOL 10 % CREAM (ABREVA) 2 GM TP SCH ×2 (06:21→09:29)
[2018-10-25 06:41] LABS: BASOPHILS # (AUTO) 0.1 10^3/uL (0.0-0.1); BASOPHILS % (AUTO) 1 % (0-10); EOSINOPHILS # (AUTO) 0.2 10^3/uL (0.0-0.3); EOSINOPHILS % (AUTO) 2 % (0-10); HEMATOCRIT 33 % (40-54); HEMOGLOBIN 10.7 G/DL (13.3-17.7); LYMPHOCYTES # (AUTO) 3.1 X 10^3 (1.0-4.0); LYMPHOCYTES % (AUTO) 27 % (12-44); MEAN CORPUSCULAR HEMOGLOBIN 29 PG (25-34); MEAN CORPUSCULAR HGB CONC 32 G/DL (32-36); MEAN CORPUSCULAR VOLUME 89 FL (80-99); MEAN PLATELET VOLUME 9.1 FL (7.4-10.4); MONOCYTES # (AUTO) 1.3 X 10^3 (0.0-1.0); MONOCYTES % (AUTO) 11 % (0-12); NEUTROPHILS % (AUTO) 61 % (42-75); PLATELET COUNT 325 10^3/uL (130-400); WHITE BLOOD COUNT 11.6 10^3/uL (4.3-11.0)
[2018-10-25 07:01] LABS: PROTHROMBIN TIME PATIENT 23.9 SEC (12.2-14.7)
[2018-10-25 07:11] LABS: BUN/CREATININE RATIO 17; CALCIUM 10.7 MG/DL (8.5-10.1); CARBON DIOXIDE 25 MMOL/L (21-32); CHLORIDE 99 MMOL/L (98-107); CREATININE SERUM 0.86 MG/DL (0.60-1.30); GFR ESTIMATED > 60; GLUCOSE 99 MG/DL (70-105); MAGNESIUM 2.1 MG/DL (1.8-2.4); PHOSPHORUS 3.2 MG/DL (2.3-4.7); POTASSIUM 4.7 MMOL/L (3.6-5.0); SODIUM 135 MMOL/L (135-145)
[2018-10-25 07:40] VITALS: BP 130/75
--- NOTE | 2018-10-25 07:53 | NUR ---
PATIENTS O2 SAT ON 1 L IS 91%; O2 SAT ON RA 89% SO O2 WAS PLACED BACK ON 1 L
[2018-10-25 08:00] VITALS: BP 130/75
[2018-10-25] MEDS ORDERED: FUROSEMIDE 40 MG/4 ML INJ (LASIX) IVP SCH (09:00)
[2018-10-25] MEDS: DULoxetine 20 MG (CYMBALTA) CAP PO SCH (09:28)
[2018-10-25] MEDS: DILTIAZEM 120 MG (CARDIZEM CD) CAP PO SCH (09:28)
[2018-10-25] MEDS: LOSARTAN 50 MG (COZAAR) TAB PO SCH (09:28)
[2018-10-25] MEDS: DIPHENOXYLATE/ATROPINE 2.5MG/0.025MG (LOMOTIL) TAB PO SCH (09:28)
[2018-10-25] MEDS: SPIRONOLACTONE 25 MG (ALDACTONE) TAB PO SCH (09:28)
[2018-10-25] MEDS: meTOprolol TARTRATE 25 MG (LOPRESSOR) TABLET PO SCH (09:28)
[2018-10-25] MEDS: HYDROCORTISONE/PRAM 1% CREAM 30 GM TUBE TOP SCH (09:29)
[2018-10-25] MEDS ORDERED: WARF2TAB PO (10:12)
[2018-10-25] MEDS ORDERED: PANT40TA3 PO (10:12)
[2018-10-25] MEDS ORDERED: HYDR-3923 PO (10:12)
[2018-10-25] MEDS ORDERED: DICL100G18 TOP (10:12)
[2018-10-25] MEDS ORDERED: DIPH1TAB25 PO (10:12)
[2018-10-25] MEDS ORDERED: DOCU100C37 PO (10:12)
[2018-10-25] MEDS ORDERED: ACET-77 PO (10:12)
[2018-10-25] MEDS ORDERED: LOSA50TA63 PO (10:12)
[2018-10-25] MEDS ORDERED: Guaifenesin/Codeine PO (10:12)
[2018-10-25] MEDS ORDERED: METO-333 PO (10:12)
[2018-10-25] MEDS ORDERED: IPRA3AMP31 INH ×2 (10:12)
[2018-10-25] MEDS ORDERED: SPIR25TA5 PO (10:12)
[2018-10-25] MEDS ORDERED: DULO20CA PO (10:12)
[2018-10-25] MEDS ORDERED: DILT120C94 PO (10:12)
--- NOTE | 2018-10-25 10:18 | Discharge Inst-Skilled Nursing ---
Discharge Inst-Skilled NF Reconcile Patient Problems Problems Reviewed?: Yes Patient Instructions Patient Problems: PULMONARY HEMORRHAGE KLEBSIELLA PNEUMONIA ENTEROBACTER AEROGENES PULMONARY EMBOLI - -RIGHT SIDED PULMONARY EDEMA ATRIAL FIBRILLATION HYPERTENSION HYPERLIPIDEMIA ULCERATIVE COLITIS GENERALIZED WEAKNESS INSOMNIA CHRONIC ANTICOAGULATION USE BPH CRITICAL CARE MYOPATHY EMPHYSEMA HYPOMAGNESEMIA HYPOKALEMIA DIARRHEA ANEMIA RECTAL PAIN Consult/Follow Up/Orders Follow Up Appt.: [facility] Skilled NF Admit to: Via [facility] (SNF) I certify that SNF services are required to be given on an inpatient basis because of the above named patient's need for fci care on a continuing basis for the conditions(s) for which he/she was receiving inpatient hospital services prior to his/her transfer to the SNF. Fpc Facility Order: Nursing Services, Vocational Nurse-Evaluate & Treat, Physical Therapy-Evaluate & Treat Oxygen Delivery Method: Nasal Cannula (2 LITERS CONTINUOUS AND BLEED INTO HIS CPAP AT NIGHT) Discharge Diet: Regular Diet Daily Activity as Tolerated: Yes New & Resume Previous Orders New & Resume Previous Orders CBC, CMP, INR TO BE DONE ON 10/28/18 - AND INR WEEKLY X 2 WEEKS THEN MONTHLY AND prn BASED ON inr REPORT Codey Parsons Oct 25, 2018 10:13 Medication List: Active Scripts Active Pantoprazole Sodium 40 Mg Tablet.dr 40 Mg PO DAILY@0700 Docusate Sodium 100 Mg Capsule 100 Mg PO BID PRN Diphenoxylate-Atrop 2.5-0.025 (Diphenoxylate HCl/Atropine) 1 Each Tablet 0.5 Ea PO BID 1/2 PILL TWICE DAILY AND 1 PILL EVERY 6 HOURS PRN DIARRHEA/PT REQUEST [Guaifenesin/Codeine] 10 ML Syrp 10 Ml PO Q4H PRN Cymbalta (Duloxetine HCl) 20 Mg Cap 20 Mg PO BID Acetaminophen 500 Mg Tablet 500 Mg PO Q4H PRN USE FOR PAIN, HEADACHE OR TEMP GREATER THAN 100f Voltaren (Diclofenac Sodium) 100 Gm Gel..gram. 0 Gm TOP TID PRN APPLY TO SHOULDERS, BACK Spironolactone 25 Mg Tablet 25 Mg PO DAILY Diltiazem 24Hr Cd (Diltiazem HCl) 120 Mg Cap.er.24h 120 Mg PO DAILY HOLD IF SBP IS LESS THAN OR EQUAL TO 110 OR HEART RATE LESS THAN 50 Losartan Potassium 50 Mg Tablet 50 Mg PO DAILY HOLD IF SBP IS LESS THAN OR EQUAL TO 110 Metoprolol Tartrate 25 Mg Tablet 25 Mg PO BID HOLD IF SBP IS LESS THAN OR EQUAL TO 110 OR HEART RATE LESS THAN 50 Hydralazine HCl 25 Mg Tablet 25 Mg PO Q6HR PRN TO BE GIVEN IF SBP IS GREATER THAN OR EQUAL TO 160 Coumadin (Warfarin Sodium) 2 Mg Tablet 2 Mg PO DAILY@1800 Iprat-Albut 0.5-3(2.5) mg/3 ml (Ipratropium/Albuterol Sulfate) 3 Ml Ampul.neb 3 Ml INH RTQ4HR Iprat-Albut 0.5-3(2.5) mg/3 ml (Ipratropium/Albuterol Sulfate) 3 Ml Ampul.neb 3 Ml INH Q2HR PRN Reported Lialda (Mesalamine) 1.2 Gm Tablet.dr 2 Tab PO DAILY WITH DINNER Losartan Potassium 25 Mg Tablet 25 Mg PO 1800 Digoxin 250 Mcg Tablet 250 Mcg PO 1700 Eliquis (Apixaban) 5 Mg Tablet 5 Mg PO BID Magnesium 250 Mg Tablet 250 Mg PO DAILY Triamcinolone Acetonide 0.1% Cream (Triamcinolone Acet) 15 Gm Cr TOP BID PRN Melatonin 10 Mg Tablet 10 Mg PO HS Mesalamine 1.2 Gm Tablet.dr 2.4 Gm PO HS TAKES 2 (1.2GM) TABLETS Flomax (Tamsulosin HCl) 0.4 Mg Cap 0.4 Mg PO 1800 Loratadine 10 Mg Tablet 10 Mg PO DAILY Vitamin D3 (Cholecalciferol (Vitamin D3)) 5,000 Unit Capsule 5,000 Unit PO DAILY Imodium A-D (Loperamide HCl) 2 Mg Tablet 1 Mg PO BID TAKES 1/2 (2MG) TABLET Cartia Xt (Diltiazem HCl) 180 Mg Cap.er.24h 360 Mg PO DAILY TAKES 2 (180MG) CAPSULES Glucosamine Chondroitin Cap (Gluc HCl/Csa/Chato Hy/Hyalur AC) 1 Each Capsule 1 Cap PO 1800 Centrum Silver Tablet (Multivit-Min/FA/Lycopene/Lut) 1 Each Tablet 1 Tab PO HS Rosuvastatin Calcium 5 Mg Tablet 2.5 Mg PO 1800 TAKES 1/2 (5MG) TABLET Probiotic (Lactobacillus Combination No.4) 1 Each Capsule 1 Cap PO BID Fluticasone Propionate 16 Gm Dumont.susp 1 Dumont NS BID PRN Metoprolol Tartrate 100 Mg Tablet 100 Mg PO BID Furosemide 40 Mg Tablet 40 Mg PO DAILY Potassium Chloride 20 Meq Tab.er.prt 20 Meq PO DAILY Lab results: Laboratory Tests Test 10/24/18 11:56 10/24/18 16:17 10/24/18 20:47 10/25/18 05:47 Range/Units Glucometer 130 H 138 H 155 H 109 70-110 MG/DL Test 10/25/18 06:30 Range/Units White Blood Count 11.6 H 4.3-11.0 10^3/uL Red Blood Count 3.74 L 4.35-5.85 10^6/uL Hemoglobin 10.7 L 13.3-17.7 G/DL Hematocrit 33 L 40-54 % Mean Corpuscular Volume 89 80-99 FL Mean Corpuscular Hemoglobin 29 25-34 PG Mean Corpuscular Hemoglobin Concent 32 32-36 G/DL Red Cell Distribution Width 17.0 H 10.0-14.5 % Platelet Count 325 130-400 10^3/uL Mean Platelet Volume 9.1 7.4-10.4 FL Neutrophils (%) (Auto) 61 42-75 % Lymphocytes (%) (Auto) 27 12-44 % Monocytes (%) (Auto) 11 0-12 % Eosinophils (%) (Auto) 2 0-10 % Basophils (%) (Auto) 1 0-10 % Neutrophils # (Auto) 7.0 1.8-7.8 X 10^3 Lymphocytes # (Auto) 3.1 1.0-4.0 X 10^3 Monocytes # (Auto) 1.3 H 0.0-1.0 X 10^3 Eosinophils # (Auto) 0.2 0.0-0.3 10^3/uL Basophils # (Auto) 0.1 0.0-0.1 10^3/uL Prothrombin Time 23.9 H 12.2-14.7 SEC INR Comment 2.0 H 0.8-1.4 Sodium Level 135 135-145 MMOL/L Potassium Level 4.7 3.6-5.0 MMOL/L Chloride Level 99 98-107 MMOL/L Carbon Dioxide Level 25 21-32 MMOL/L Anion Gap 11 5-14 MMOL/L Blood Urea Nitrogen 15 7-18 MG/DL Creatinine 0.86 0.60-1.30 MG/DL Estimat Glomerular Filtration Rate > 60 BUN/Creatinine Ratio 17 Glucose Level 99 70-105 MG/DL Calcium Level 10.7 H 8.5-10.1 MG/DL Phosphorus Level 3.2 2.3-4.7 MG/DL Magnesium Level 2.1 1.8-2.4 MG/DL My orders: Orders - CODEY PARSONS MD Patient Visit (10/24/18 ) Functional Activities, Ea 15 (10/24/18 ) Attending Discharge Inpt/Inobs (10/25/18 09:55) CODEY PARSONS MD Oct 25, 2018 10:18
--- NOTE | 2018-10-25 10:19 | Discharge Summary ---
Diagnosis/Chief Complaint Date of Admission Oct 11, 2018 at 13:12 Date of Discharge Discharge Date: Oct 25, 2018 Discharge Time: 1100 Reason Hospital Visit PT IS A 78 Y/O MALE WHO HAS HAD A VERY PROTRACTED COURSE IN THE HOSPITAL WITH ADMISSION FOR PULMONARY HEMORRHAGE AND PNEUMONIA - THEN WAS VENTILATED FOR SEVERAL DAYS, TRANSFERRED DOWN TO 4TH FLOOR THEN TO INPATIENT REHAB FOR STRENGTHENING, STARTED TO HAVE FEVERS, THEN WAS TRANSFERRED TO THE ICU FOR THE FEVERS AND CONCERN FOR POSSIBLE RECURRENT PULMONARY HEMORRHAGE AND FEVERS WITH DIARRHEA - ALL OF WHICH HAS BEEN OVER THE COURSE OF ABOUT A MONTH. YEHUDA IS EXHAUSTED, BUT IS FEELING BETTER THAN EARLIER THIS PAST WEEK. YEHUDA REPORTS THAT HE IS MOTIVATED TO GET BETTER DESPITE HAVING EXTREME FATIGUE. Discharge Summary Discharge Physical Examination Allergies: Coded Allergies: Sulfa (Sulfonamide Antibiotics) (Verified Allergy, Unknown, 08/31/18) montelukast (Unverified Adverse Reaction, Unknown, 06/08/16) Hallucinations per pt Vitals & I&Os Vital Signs Date Time Temp Pulse Resp B/P (MAP) Pulse Ox O2 Delivery O2 Flow Rate FiO2 10/25/18 08:00 Nasal Cannula 1.00 10/25/18 08:00 98.0 66 20 130/75 (93) 91 10/25/18 07:40 24 Hospital Course Pending Labs Laboratory Tests 10/25/18 05:47: Glucometer 109 10/25/18 06:30: White Blood Count 11.6, Red Blood Count 3.74, Hemoglobin 10.7, Hematocrit 33, Mean Corpuscular Volume 89, Mean Corpuscular Hemoglobin 29, Mean Corpuscular Hemoglobin Concent 32, Red Cell Distribution Width 17.0, Platelet Count 325, Mean Platelet Volume 9.1, Neutrophils (%) (Auto) 61, Lymphocytes (%) (Auto) 27, Monocytes (%) (Auto) 11, Eosinophils (%) (Auto) 2, Basophils (%) (Auto) 1, Neutrophils # (Auto) 7.0, Lymphocytes # (Auto) 3.1, Monocytes # (Auto) 1.3, Eosinophils # (Auto) 0.2, Basophils # (Auto) 0.1, Prothrombin Time 23.9, INR Comment 2.0, Sodium Level 135, Potassium Level 4.7, Chloride Level 99, Carbon Dioxide Level 25, Anion Gap 11, Blood Urea Nitrogen 15, Creatinine 0.86, Estimat Glomerular Filtration Rate > 60, BUN/Creatinine Ratio 17, Glucose Level 99, Calcium Level 10.7, Phosphorus Level 3.2, Magnesium Level 2.1 Discharge Instructions to patient/family Please see electronic discharge instructions given to patient. Discharge Medications Reviewed and agree with Discharge Medication list on patient's Discharge Instruction sheet Clinical Quality Measures DVT/VTE Risk/Contraindication: Risk Factor Score Per Nursin CODEY BARILLAS MD Oct 25, 2018 10:18
--- NOTE | 2018-10-25 10:19 | Pulmonary Progress Note ---
Subjective Time Seen by a Provider: 10:17 Subjective/Events-last exam Pt feels better. NO complications noted. Sepsis Event Evaluation Height, Weight, BMI Height: 5'6.00" Weight: 161lbs. 3.0oz. 73.261857su; 33.1 BMI Method:Stated Exam Exam Vital Signs Date Time Temp Pulse Resp B/P (MAP) Pulse Ox O2 Delivery O2 Flow Rate FiO2 10/25/18 08:00 Nasal Cannula 1.00 10/25/18 08:00 98.0 66 20 130/75 (93) 91 High Flow N/C 1.00 10/25/18 07:40 70 91 24 10/25/18 07:40 91 High Flow N/C 1.00 10/25/18 04:00 96.8 67 22 145/76 (99) 96 High Flow N/C 1.00 10/25/18 03:14 94 NIV CPAP 2.00 10/25/18 00:59 97.0 73 22 141/80 (100) 98 High Flow N/C 1.00 10/24/18 22:38 93 NIV CPAP 2.00 10/24/18 20:47 97.6 71 22 123/73 (90) 93 High Flow N/C 1.00 10/24/18 20:00 Nasal Cannula 1.00 10/24/18 19:39 92 High Flow N/C 1.00 10/24/18 16:29 () High Flow N/C 10/24/18 16:17 97.3 64 20 148/64 (92) 95 High Flow N/C 2.00 10/24/18 15:56 92 High Flow N/C 1.00 10/24/18 12:00 97.4 63 20 133/79 (97) 92 High Flow N/C 2.00 10/24/18 10:39 93 High Flow N/C 1.00 I & O 10/25/18 07:00 Intake Total 1960 ml Output Total 1800 ml Balance 160 ml Height & Weight Height: 5'6.00" Weight: 161lbs. 3.0oz. 73.549454pu; 33.1 BMI Method:Stated General Appearance: No Apparent Distress, WD/WN HEENT: PERRL/EOMI, Pharynx Normal Neck: Full Range of Motion, Non Tender, Supple Respiratory: Chest Non Tender, No Accessory Muscle Use, No Respiratory Distress, Decreased Breath Sounds Cardiovascular: Regular Rate, Rhythm, No Gallop, No Murmur Capillary Refill: Less Than 3 Seconds Gastrointestinal: normal bowel sounds, non tender, soft Extremity: Normal Capillary Refill, Normal Inspection, No Pedal Edema Neurologic/Psychiatric: Alert, Oriented x3 Skin: Normal Color, Warm/Dry Lymphatic: No Adenopathy Results Lab Laboratory Tests 10/24/18 05:40 10/25/18 06:30 Assessment/Plan Assessment/Plan Acute bilateral PE - Coumadin -Pt developed pulmonary hemorrhage with Eliquis S/p Klebsiella PNA Pulmonary hemorrhage - resolved Afib Generalized weakness/debility -PT/OT JUAN HESS DO Oct 25, 2018 10:19
[2018-10-25] MEDS ORDERED: FURO-125 PO (10:35)
--- NOTE | 2018-10-25 11:02 | Physical Therapy Daily Note ---
PT Daily Note-Current Subjective Patient in bed pre tx, agrees to PT, has no complaints of pain at rest. Will be co-treating with OT this morning to coordinate UE and LE activity during transfer and exercises and due to poor patient mobility and strength. Appearance Patient in recliner post tx with nurse call, phone, tray, all needs met. Cece sling under patient so nursing can get him back to bed. Mental Status Patient Orientation: Normal For Age Attachments: Oxygen Transfers Therapy Code Descriptions/Definitions Functional [place] Measure: 0=Not Assessed/NA 4=Minimal Assistance 1=Total Assistance 5=Supervision or Setup 2=Maximal Assistance 6=Modified [place] 3=Moderate Assistance 7=Complete [place] Therapy Quality Codes: 6 Independent with activity with or without an assistive device 5 Patient requires set up or clean up by helper. Patient completes activity by themselves 4 Supervision or touching assist (CGA). Roxana provide cues , steadying assist 3 The helper provides less than half the effort to complete the activity 2 The helper provides more than half the effort to complete the activity 1 Dependent. The helper does all the effort to complete an activity 7 Patient refused to complete or attempt activity 9 The patient did not perform the activity before the current illness or injury 88 Not attempted due to Medical conditions or safety concerns Transfers (B, C, W/C) (FIM): 2 Scootin Rollin Supine to/from Sit: 3 Sit to/from Stand: 2 Bed to/from Chair: 2 Hard max assist for sit to stand and transfer, patient is able to bear some weight on his legs but very little. OT was able to adjust patient's positioning and trunk control for better transfer. Weight Bearing Right Lower Extremity: Right Weight Bearing/Tolerated Left Lower Extremity: Left Weight Bearing/Tolerated Exercises Seated Therapy Exercises: Ankle pumps, Long arc quads, Hip flexion Seated Reps: 15 Treatments bed mobility and transfers, LE exercise, OT performed UE exercise also. Assessment Current Status: Fair Progress slight improvement in LE strength PT Short Term Goals Short Term Goals Time Frame: Oct 26, 2018 Transfers (B,C,W/C) (FIM): 4 Gait (FIM): 1 Distance (FIM): 1=up to 49 ft Gait Distance Comment: 45' Gait Level of Assist: 4 Gait Assistive Device: FWW PT Computer Aided Design Technician Goals Fci Goals PT [facility]ci Goals Time Frame: Nov 09, 2018 Transfers (B,C,W/C) (FIM): 6 Sit to Lying (QC): 6 Lying-Sitting on Side/Bed(QC): 6 Sit to Stand (QC): 6 Rollin Roll Left to Right (QC): 6 Chair/Nwo-ds-Jdbsy Xfer(QC): 6 Car Transfer (QC): 6 Does the Patient Walk: Yes Gait (FIM): 2 Gait distance (FIM): 9=644-30 ft Distance: 125' Walk 10 feet (QC): 5 Walk 10ft-Uneven Surface(QC): 5 Walk 50ft with 2 Turns (QC): 5 Gait Level of Assist: 5 Gait Assistive Device: FWW Stairs (FIM): 2 # of Steps: 4 1 Step (curb) (QC): 5 4 Steps (QC): 5 12 Steps (QC): 9 Stairs Level Of Assist: 5 Picking up an Object (QC): 5 PT Plan Problem List Problem List: Activity Tolerance, Functional Strength, Safety, Balance, Gait, Transfer, Bed Mobility, ROM Treatment/Plan Treatment Plan: Continue Plan of Care Treatment Plan: Bed Mobility, Education, Functional Activity Gilbert, Functional Strength, Gait, Safety, Therapeutic Exercise, Transfers Treatment Duration: Nov 09, 2018 Frequency: 11 times per week Estimated Hrs Per Day: .5 hour per day Patient and/or Family Agrees t: Yes Safety Risks/Education Patient Education: Transfer Techniques, Correct Positioning, Safety Issues Teaching Recipient: Patient Teaching Methods: Demonstration, Discussion Response to Teaching: Reinforcement Needed Time/GCodes Time In: 1030 Time Out: 1050 Total Billed Treatment Time: 20 Total Billed Treatment 1 visit FA 20' co-treated with OT for 20' MARIA ELENA ESQUIVEL PT Oct 25, 2018 11:02
--- NOTE | 2018-10-25 11:26 | Occupational Ther Daily Note ---
OT Current Status-Daily Note Subjective Pt alert, lying in bed. Pt agrees to therapy. present in room. states that pt is going to [facility] today. Mental Status/Objective Patient Orientation: Person, Place, Time, Situation Therapy Code Descriptions/Definitions Functional [place] Measure: 0=Not Assessed/NA 4=Minimal Assistance 1=Total Assistance 5=Supervision or Setup 2=Maximal Assistance 6=Modified [place] 3=Moderate Assistance 7=Complete [place] Attachments: IV, Oxygen ADL-Treatment Pt c/o not getting enough air. GIBBS discussed and instructed on deep breathing techniques. Pt able to demonstrate understanding. Co-treat with PT, skills of 2 clinicians needed for functional transfers, mobility and UE/LE strengthening exercises due to pt's medical issues, decreased mobility, decreased core and extremity strength. PT working on functional mobility, transfers and LE strengthening. OT working on UE strengthening, upper body placement during transfer and mobility. After therapy, pt sitting in room with call light/phone in reach. Nrsg and present in room. Therapy Code Descriptions/Definitions Functional [place] Measure: 0=Not Assessed/NA 4=Minimal Assistance 1=Total Assistance 5=Supervision or Setup 2=Maximal Assistance 6=Modified [place] 3=Moderate Assistance 7=Complete [place] Therapy Quality Codes: 6 Independent with activity with or without an assistive device 5 Patient requires set up or clean up by helper. Patient completes activity by themselves 4 Supervision or touching assist (CGA). [place] provide cues , steadying assist 3 The helper provides less than half the effort to complete the activity 2 The helper provides more than half the effort to complete the activity 1 Dependent. The helper does all the effort to complete an activity 7 Patient refused to complete or attempt activity 9 The patient did not perform the activity before the current illness or injury 88 Not attempted due to Medical conditions or safety concerns OT Short Term Goals Short Term Goals Time Frame: Oct 25, 2018 Grooming(FIM): 4 Bathing(FIM): 4 Lower Body Dressing(FIM): 3 Transfers (B,C,W/C) (FIM): 4 Additional Short Term Goals: 1-Demonstrate ADL Tasks, 2-Verbalize Understanding, 3-ImproveStrength/Gilbert 1=Demonstrate adherence to instructed precautions during ADL tasks. 2=Patient will verbalize/demonstrate understanding of assistive devices/modifications for ADL. 3=Patient will improve strength/tolerance for activity to enable patient to perform ADL's. OT Weatherization Installer Goals Weatherization Installer Goals Time Frame: Nov 08, 2018 Eating (FIM): 6 Eating (QC): 6 Groomin Oral Hygiene (QC): 5 Bathing(FIM): 5 Shower/Bathe Self (QC): 5 Upper Body Dressing(FIM): 5 Upper Body Dressing (QC): 5 Lower Body Dressing(FIM): 5 Lower Body Dressing (QC): 5 On/Off Footwear (QC): 5 Toileting(FIM): 5 Toileting Hygiene (QC): 5 Transfers (B,C,W/C) (FIM): 5 Toilet/Commode Transfer(FIM): 5 Toilet/Commode Transfer (QC): 5 Shower Transfer(FIM): 5 Additional Goals: 1-Demonstrate ADL Tasks, 2-Verbalize Understanding, 3- ImproveStrength/Gilbert 1=Demonstrate adherence to instructed precautions during ADL tasks. 2=Patient will verbalize/demonstrate understanding of assistive devices/modifications for ADL. 3=Patient will improve strength/tolerance for activity to enable patient to perform ADL's. OT Education/Plan Problem List/Assessment Assessment: Decreased Activ Tolerance, Decreased Safety Aware, Decreased UE Strength, Dependent Transfers, Impaired Bed Mobility, Impaired Coordination, Impaired Funct Balance, Impaired I ADL's, Impaired Self-Care Skills Discharge Recommendations Plan/Recommendations: Discharge/Goals Met (to [facility]) Therapy D/C Recommendations: [facility] (TCU/NH) Treatment Plan/Plan of Care Patient would benefit from OT for education, treatment and training to promote independence in ADL's, mobility, safety and/or upper extremity function for ADL's. Plan of Care: ADL Retraining, Caregiver Training, Concurrent Therapy, Functional Mobility, Group Exercise/Act as Ind, UE Funct Exercise/Act Treatment Duration: Nov 08, 2018 Frequency: 5 times per week Estimated Hrs Per Day: .5 hour per day Agreement: Yes Rehab Potential: Fair Time/GCodes Start Time: 10:30 Stop Time: 10:50 Total Time Billed (hr/min): 20 Billed Treatment Time 1 visit-FA 1 (20 min) NERY ADAIR Oct 25, 2018 11:26
[2018-10-25 12:00] VITALS: BP 110/77
--- NOTE | 2018-10-25 12:57 | NUR ---
CM/SS. CARE Assessment completed with patient in preparation for his Medicare skilled placement with [facility] Spouse Mary present and assisted him with review/reading prior to signing. Processed with [facility], faxed to [facility] and included in packet to accompany patient.
[2018-10-25 13:05] VITALS: BP 110/77
--- NOTE | 2018-10-25 19:48 | Cardiology Progress Note ---
Cardiology SOAP Progress Note Subjective: Improved shortness of breath. Objective: I&O/Vital Signs 10/25/18 10/25/18 10/25/18 10/25/18 08:00 08:00 10:18 12:00 Temp 98.0 97.0 Pulse 66 70 Resp 20 20 B/P (MAP) 130/75 (93) 110/77 (88) Pulse Ox 91 96 O2 Delivery High Flow N/C Nasal Cannula Nasal Cannula High Flow N/C O2 Flow Rate 1.00 1.00 1.00 10/25/18 13:05 Pulse 70 Resp 20 B/P (MAP) 110/77 Pulse Ox 96 O2 Delivery Nasal Cannula O2 Flow Rate 1.00 10/25/18 00:00 Intake Total 1860 ml Output Total 1300 ml Balance 560 ml Weight (Pounds): 161 Weight (Ounces): 3.0 Weight (Calculated Kilograms): 73.270325 Constitutional: AAO x 3 Respiratory: chest is bilaterally symmetric, lungs clear to auscultation Cardiovascular: regular rate-rhythm; No irregularly irregular, No extra beats, No parasternal heave is noted, No JVD, No edema, No bradycardia, No tachycardia, No point of maximal impulse, No cardiac thrills are palpable; S1 and S2; No gallop/S3, No gallop/S4, No diastolic murmur, No systolic murmur, No friction rub, No click, No other Gastrointestional: No tender, No soft, No round, No distended, No pulsatile mass, No organomegaly, No guarding, No rebound, No tenderness, No hernia, No mass, No audible bowel sounds, No abnormal bowel sounds, No abdominal bruits, No spleenomegaly, No other Extremities: No normal range of motion, No non-tender, No normal inspection, No pedal edema, No calf tenderness, No normal capillary refill, No pelvis stable, No calf tenderness, No inflammation, No pedal edema, No slow capillary refill, No swelling, No other, No abrasion, No clubbing, No cyanosis, No ecchymosis, No laceration, No no lower extremity edema bilateral, No significant edema, No tenderness, No wound Neurologic/Psychiatric: no motor/sensory deficits, alert, normal mood/affect, oriented x 3 Results/Procedures: Labs Laboratory Tests 10/24/18 20:47: Glucometer 155H 10/25/18 05:47: Glucometer 109 10/25/18 06:30: White Blood Count 11.6H, Red Blood Count 3.74L, Hemoglobin 10.7L, Hematocrit 33L , Mean Corpuscular Volume 89, Mean Corpuscular Hemoglobin 29, Mean Corpuscular Hemoglobin Concent 32, Red Cell Distribution Width 17.0H, Platelet Count 325, Mean Platelet Volume 9.1, Neutrophils (%) (Auto) 61, Lymphocytes (%) (Auto) 27, Monocytes (%) (Auto) 11, Eosinophils (%) (Auto) 2, Basophils (%) (Auto) 1, Neutrophils # (Auto) 7.0, Lymphocytes # (Auto) 3.1, Monocytes # (Auto) 1.3H, Eosinophils # (Auto) 0.2, Basophils # (Auto) 0.1, Prothrombin Time 23.9H, INR Comment 2.0H, Sodium Level 135, Potassium Level 4.7, Chloride Level 99, Carbon Dioxide Level 25, Anion Gap 11, Blood Urea Nitrogen 15, Creatinine 0.86, Estimat Glomerular Filtration Rate > 60, BUN/Creatinine Ratio 17, Glucose Level 99, Calcium Level 10.7H, Phosphorus Level 3.2, Magnesium Level 2.1 10/25/18 10:51: Glucometer 151H Microbiology 10/17/18 Gram Stain - Final, Complete 10/17/18 Sputum Culture - Final, Complete Gram Pos Mixed Bacterial Bridget A/P: Assessment/Dx: pulmonary embolism, pulmonary hemorrhage. Weakness and malaise and low grade fever and leucocytosis, systemic infection suspected, managed by Dr Saravia Relatively low bp lately necessitating d/c diltiazem and reduction in beta-b locker. BP has since been better Hemoptysis and pulmonary hemorrhage necessitating discontinuation of Eliquis and aspirin in mid-August 2018; low-dose aspirin reinitiated on 10/01/18 Echo of 09/19/18: LVEF 60-65%, biatrial enlargement, mod MR, mild to mod TR, RVSP 45 mmHg 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 Cardiac cath from December 30, 2013 in which successful GAURI x 2, one to the proximal and one to the mid vessel LAD, was done. 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 Pacemaker currently in the VVIR mode, due to permanent atrial fib. The patient had a pulse generator change out on 12/18/2011. The device is functioning normally per last interrogation of September 23, 2018 (DIMITRIOS estimate 11 months) History of ulcerative colitis, being managed by Dr. Parsons and Dr. Seymour Stroke prophylaxis with Eliquis - currently being held d/t hemoptysis Sleep apnea for which he is following with Dr Mijares - Bi-pap therapy Hyperlipidemia being treated with rosuvastatin. Mild carotid arterial disease that has been followed by Dr. Mcdaniel History of cholecystectomy. 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 * Continue long-acting diltiazem - adjust dose as indicated * Monitor labs * patient is not a good candidate for long-term oral anticoagulation due to pulmonary hemorrhage. May consider watchman device as an outpatient for stroke prevention in a patient with atrial fibrillation. * Pulmonary embolism, on Coumadin * Patient being discharged to via [facility]. Thank you for your consultation. Please call me if you have any questions. Naren Raines MD, FACP, FACC, FSCAI, FHRS, CCDS Interventional Cardiology Cardiac Electrophysiology Vascular Medicine and Endovascular Interventions Deepak RAINES MD Oct 25, 2018 19:48
--- NOTE | 2018-10-28 13:24 | Therapy Team Discharge Summary ---
Therapy Discharge Summary Discharge Recommendations Date of Discharge Oct 25, 2018 at 13:05 Therapy D/C Recommendations: Nursing Home (TCU/NH) Physical Therapy this patient was admitted to [facility] services post lengthy hospital course that included acute care and acute rehab services. He was admitted with respiratory failure and debility. His PLOF was living at home with his at an active independent level, working outdoors in the yard. He has had a complicated course and his mobility skills have varied throughout. Upon admission to [facility], michele goff was mod assist with transfers and able to sit EOB unsupported for several minutes. His transfer ability varied while on [facility], he performed SPT with max assist or ze transfer or sit to stand lift transfer (depending on the day.). His progress waxed and waned depending on medical status. Treatment consisted of functional strengthening, functional transfers and out of bed activity. His progress was limited due to medical complications and goals were not met. Pt transferred to [facility] and recommend continued therapy services to promote mobility and strength to allow pt to return home as before. Will DC from [facility] at this time. Occupational Therapy Decreased Activ Tolerance, Decreased Safety Aware, Decreased UE Strength, Dependent Transfers, Impaired Bed Mobility, Impaired Coordination, Impaired Funct Balance, Impaired I ADL's, Impaired Self-Care Skills PT Novelty Twister Tender Goals Nursing Home Goals PT Novelty Twister Tender Goals Time Frame: Nov 09, 2018 Transfers (B,C,W/C) (FIM): 6 Sit to Lying (QC): 6 Lying-Sitting on Side/Bed(QC): 6 Sit to Stand (QC): 6 Rollin Chair/Uoj-rx-Vdzvq Xfer(QC): 6 Does the Patient Walk: Yes Gait (FIM): 2 Gait distance (FIM): 9=528-83 ft Distance: 125' Walk 50ft with 2 Turns (QC): 5 Gait Level of Assist: 5 Gait Assistive Device: FWW Stairs (FIM): 2 # of Steps: 4 Stairs Level Of Assist: 5 goals not met OT Novelty Twister Tender Goals Nursing Home Goals Time Frame: Nov 08, 2018 Eating (FIM): 6 Eating (QC): 6 Groomin Oral Hygiene (QC): 5 Bathing(FIM): 5 Upper Body Dressing(FIM): 5 Lower Body Dressing(FIM): 5 Toileting(FIM): 5 Toileting Hygiene (QC): 5 Transfers (B,C,W/C) (FIM): 5 Toilet/Commode Transfer(FIM): 5 Toilet/Commode Transfer (QC): 5 Shower Transfer(FIM): 5 Additional Goals: 1-Demonstrate ADL Tasks, 2-Verbalize Understanding, 3-ImproveStrength/Gilbert 1=Demonstrate adherence to instructed precautions during ADL tasks. 2=Patient will verbalize/demonstrate understanding of assistive devices/modifications for ADL. 3=Patient will improve strength/tolerance for activity to enable patient to perform ADL's. NERY DALEY PT Oct 28, 2018 13:24
--- NOTE | 2018-10-29 08:43 | Therapy Team Discharge Summary ---
Therapy Discharge Summary Discharge Recommendations Date of Discharge Oct 25, 2018 at 13:05 Therapy D/C Recommendations: 24 hr Supervision, [facility] (TCU/NH) Occupational Therapy Pt. has been seen by occupational therapy to work on independence with daily tasks. Pt. encountered many medical changes and did not meet goals. Pt. at discharge required max/dependent assist with most tasks. Pt. discharged to [facility] to increase overall strength. Recommend OT services in this skilled setting. Decreased Activ Tolerance, Decreased Safety Aware, Decreased UE Strength, Dependent Transfers, Impaired Bed Mobility, Impaired Coordination, Impaired Funct Balance, Impaired I ADL's, Impaired Self-Care Skills, Restricted Funct UE ROM PT Top Loader Goals Halfway Goals PT Halfway Goals Time Frame: Nov 09, 2018 Transfers (B,C,W/C) (FIM): 6 Sit to Lying (QC): 6 Lying-Sitting on Side/Bed(QC): 6 Sit to Stand (QC): 6 Rollin Chair/Rvu-ha-Phjmx Xfer(QC): 6 Does the Patient Walk: Yes Gait (FIM): 2 Gait distance (FIM): 9=651-34 ft Distance: 125' Walk 50ft with 2 Turns (QC): 5 Gait Level of Assist: 5 Gait Assistive Device: FWW Stairs (FIM): 2 # of Steps: 4 Stairs Level Of Assist: 5 OT Top Loader Goals Halfway Goals Time Frame: Nov 08, 2018 Eating (FIM): 6 (not met) Eating (QC): 6 (not met) Groomin (not met) Oral Hygiene (QC): 5 (not met) Bathing(FIM): 5 (not met) Upper Body Dressing(FIM): 5 (not met) Lower Body Dressing(FIM): 5 (not met) Toileting(FIM): 5 (not met) Toileting Hygiene (QC): 5 (not met) Transfers (B,C,W/C) (FIM): 5 (not met) Toilet/Commode Transfer(FIM): 5 (not met) Toilet/Commode Transfer (QC): 5 (not met) Shower Transfer(FIM): 5 (not met) Additional Goals: 1-Demonstrate ADL Tasks, 2-Verbalize Understanding, 3- ImproveStrength/Gilbert 1=Demonstrate adherence to instructed precautions during ADL tasks. 2=Patient will verbalize/demonstrate understanding of assistive devices/modifications for ADL. 3=Patient will improve strength/tolerance for activity to enable patient to perform ADL's. ANURAG HENRIQUEZ OT Oct 29, 2018 08:43
== END 2018-10-25 13:05 | DRG 177 ==
LOC: 4TH 13:12
PROVIDERS: ADMIT Family Medicine; ATTEND Family Medicine
DX: J15.0 Pneumonia due to Klebsiella pneumoniae (principal); I26.99 Other pulmonary embolism without acute cor pulmonale; I48.91 Unspecified atrial fibrillation; G72.81 Critical illness myopathy; K51.90 Ulcerative colitis, unspecified, without complications; I25.810 Atherosclerosis of coronary artery bypass graft(s) without angina pectoris; I10 Essential (primary) hypertension; E83.42 Hypomagnesemia; E87.6 Hypokalemia; Z66 Do not resuscitate; J43.9 Emphysema, unspecified; G47.33 Obstructive sleep apnea (adult) (pediatric); R53.81 Other malaise; N40.0 Benign prostatic hyperplasia without lower urinary tract symptoms; G47.00 Insomnia, unspecified; R13.10 Dysphagia, unspecified; R53.1 Weakness; E78.00 Pure hypercholesterolemia, unspecified; J30.2 Other seasonal allergic rhinitis; G47.30 Sleep apnea, unspecified; E09.9 Drug or chemical induced diabetes mellitus without complications; T38.0X5A Adverse effect of glucocorticoids and synthetic analogues, initial encounter; Z95.1 Presence of aortocoronary bypass graft; Z95.5 Presence of coronary angioplasty implant and graft; Z95.0 Presence of cardiac pacemaker; Z87.891 Personal history of nicotine dependence
CPT/HCPCS: 36415; 71045; 71275; 80048; 80053; 82040; 82962; 83735; 83880; 84100; 85007; 85025; 85027; 85610; 85730; 87070; 87077; 87186; 87205; 93306; 93970; 94640; 94660; 94668; 94760; 94799

== ENCOUNTER → 2019-01-31 | Outpatient (CLI) | payer MEDICARE ==
[~2019-01-31] MED LIST changes: +ACET-78 PO; +CATHETER FLUSH 10 ML SYR IV PRN; -DIGO250T; -DIGO250T PO; +DIGO250T3; +DIGO250T3 PO; +DILT120C88 PO; +DIPH1TAB25 PO; +DOCU100C37 PO; +DULO20CA PO; +Guaifenesin/Codeine PO; +HOLD METFORMIN - RECEIVED CONTRAST 20 ML VIAL IV SCH; +HYDR-3923 PO; +IOHEXOL 350 MG/ML 100 ML (OMNIPAQUE 350) VIAL IV ONE; +LOSA50TA63 PO; +METO-333 PO; +NS 100 ML (IVPB) BAG IV ONE; +PANT40TA3 PO; -ROSU5TAB12; -ROSU5TAB12 PO; +ROSU5TAB13; +ROSU5TAB13 PO; +SPIR25TA5 PO; -TAMS0.4C98 PO; +WARF2TAB PO
[2019-01-31 11:10] LABS: CREATININE SERUM 1.37 MG/DL (0.60-1.30)
--- NOTE | 2019-01-31 12:15 | Diagnostic Imaging Report ---
PROCEDURE: CT chest with contrast only. TECHNIQUE: Multiple contiguous axial images were obtained through the chest after administration of intravenous contrast. Auto Exposure Controls were utilized during the CT exam to meet ALARA standards for radiation dose reduction. INDICATION: Dyspnea, pulmonary embolism. COMPARISON: October 15, 2018 FINDINGS: Pacer device is present with the battery pack overlying the left chest. Post surgical changes of a CABG. Scattered vascular calcifications without aneurysmal dilatation of the thoracic aorta. The heart is within normal limits in size. No pericardial effusion. Tiny hiatal hernia. No pleural effusion. No significant filling defect is noted within the central or segmental pulmonary arteries. The subsegmental pulmonary arteries are not well evaluated secondary to contrast bolus timing. Previously noted filling defects within the bilateral pulmonary arteries are not definitely seen on this examination. Background emphysematous changes are again noted. No pneumothorax. Very minimal background interstitial lung disease. No additional focal pulmonary opacity or nodule. Previously noted reticular opacities and groundglass opacities have resolved since the prior examination. The airways are patent. Cholecystectomy. 3 cm mass is noted within the right adrenal gland, not significantly changed since prior imaging from October 2011, therefore, this is benign. The visualized upper abdomen is otherwise unremarkable. No acute osseous abnormality. IMPRESSION: No significant pulmonary embolus identified. In particular, previously noted pulmonary emboli within the bilateral segmental pulmonary arteries on prior imaging are no longer visualized. Evaluation of subsegmental pulmonary arteries on this examination is severely limited. Interval resolution of previously noted reticular and groundglass opacities. Background emphysematous changes. Additional findings as above. Dictated by: Dictated on workstation # [id number]
== END ==
LOC: RAD 10:41
PROVIDERS: ATTEND Nurse Practitioner Family
DX: J43.9 Emphysema, unspecified (principal); I70.0 Atherosclerosis of aorta; E27.8 Other specified disorders of adrenal gland; Z95.5 Presence of coronary angioplasty implant and graft; Z90.49 Acquired absence of other specified parts of digestive tract; Z95.0 Presence of cardiac pacemaker
CPT/HCPCS: 36415; 71260; 82565; 84520

== ENCOUNTER 2019-03-04 08:00 | Outpatient (RCR) | payer MEDICARE ==
[2018-12-31 08:00] VITALS: BP 120/50
[2018-12-31 09:30] VITALS: BP 125/60
[2019-01-02 08:00] VITALS: BP 122/64
[2019-01-02 09:11] VITALS: BP 118/60
[2019-01-09 08:00] VITALS: BP 130/40
[2019-01-09 09:30] VITALS: BP_SYST 120; BP_SYST 140; BP_DIAS 60
[2019-01-14 08:07] VITALS: BP 100/60
[2019-01-14 09:20] VITALS: BP 100/60
[2019-01-16 08:05] VITALS: BP 110/70
[2019-01-16 09:10] VITALS: BP 110/60
[2019-01-21 08:00] VITALS: BP 120/40
[2019-01-21 09:12] VITALS: BP 130/60
[2019-01-23 08:00] VITALS: BP 120/60
[2019-01-23 09:27] VITALS: BP 122/60
[2019-01-28 08:05] VITALS: BP 92/60
[2019-01-28 09:22] VITALS: BP 115/60
[2019-01-30 08:00] VITALS: BP 130/60
[2019-01-30 09:30] VITALS: BP 110/62
[2019-02-04 08:00] VITALS: BP 138/58
[2019-02-04 09:30] VITALS: BP 116/60
[2019-02-06 08:00] VITALS: BP 130/40
[2019-02-06 09:13] VITALS: BP 102/60
[2019-02-11 08:00] VITALS: BP 140/40
[2019-02-11 08:55] VITALS: BP 118/80
[2019-02-13 08:00] VITALS: BP 130/60
[2019-02-13 09:10] VITALS: BP 120/60
[2019-02-18 08:00] VITALS: BP 110/60
[2019-02-18 09:15] VITALS: BP 110/62
[2019-02-20 08:03] VITALS: BP 80/50
[2019-02-20 09:10] VITALS: BP 90/58
[2019-02-25 08:02] VITALS: BP 92/57
[2019-02-25 09:05] VITALS: BP 100/60
[2019-03-04 08:00] VITALS: BP 120/60
[~2019-03-04 08:00] MED LIST changes: +ACET-77 PO; -ACET-78 PO; -CATHETER FLUSH 10 ML SYR IV PRN; +DIGO250T; +DIGO250T PO; -DIGO250T3; -DIGO250T3 PO; -DILT120C88 PO; +DILT120C94 PO; -HOLD METFORMIN - RECEIVED CONTRAST 20 ML VIAL IV SCH; -IOHEXOL 350 MG/ML 100 ML (OMNIPAQUE 350) VIAL IV ONE; -NS 100 ML (IVPB) BAG IV ONE; +TAMS0.4C98 PO
[2019-03-04 09:19] VITALS: BP 108/60
== END 2019-03-25 | disposition home or self-care (01) ==
LOC: PULM 08:00
PROVIDERS: ATTEND Family Medicine
DX: J44.9 Chronic obstructive pulmonary disease, unspecified (principal)
CPT/HCPCS: 99211

== ENCOUNTER 2019-07-22 07:03 | Day surgery (SDC) | payer MEDICARE ==
[~2019-07-22] VITALS: Ht 172 cm; Wt 89.0 kg
[~2019-07-22 07:03] MED LIST changes: -ACET-77 PO; +ACET-78 PO; +ACHYD1T PO; -DIGO250T; -DIGO250T PO; +DIGO250T3; +DIGO250T3 PO; +DILT120C88 PO; -DILT120C94 PO; -HYDR-3820 PO; -TAMS0.4C98 PO
[2019-07-22 07:08] VITALS: BP 131/75
[2019-07-22] MEDS ORDERED: ceFAZolin INJECTION 1,000 MG ONE (07:14)
[2019-07-22] MEDS ORDERED: NS IV 1000 ML 1,000 ML IV SCH ×2 (07:15→10:52)
[2019-07-22 07:41] LABS: HEMOGLOBIN 14.6 G/DL (13.3-17.7); MEAN PLATELET VOLUME 9.3 FL (7.4-10.4); RED CELL DISTRIBUTION WIDTH 15.2 % (10.0-14.5); WHITE BLOOD COUNT 11.9 10^3/uL (4.3-11.0)
[2019-07-22] MEDS ORDERED: NS (IVPB) 50 ML ONE (07:47)
[2019-07-22 07:50] LABS: INR 1.7 (0.8-1.4); PROTHROMBIN TIME PATIENT 20.4 SEC (12.2-14.7)
[2019-07-22] MEDS ORDERED: ASPI-586 PO (07:50)
[2019-07-22] MEDS ORDERED: LEVA0.6334 IH (07:50)
[2019-07-22 07:51] LABS: ALBUMIN 4.2 GM/DL (3.2-4.5); POTASSIUM 4.7 MMOL/L (3.6-5.0)
[2019-07-22 07:53] LABS: CALCIUM 9.4 MG/DL (8.5-10.1)
[2019-07-22 07:54] LABS: TOTAL PROTEIN 8.4 GM/DL (6.4-8.2)
[2019-07-22 07:56] LABS: BILIRUBIN,TOTAL 0.4 MG/DL (0.1-1.0)
[2019-07-22 07:58] LABS: CREATININE SERUM 1.61 MG/DL (0.60-1.30)
[2019-07-22] MEDS ORDERED: fentaNYL INJECTION 100 MCG/2 ML AMP ONE (08:36)
[2019-07-22] MEDS ORDERED: MIDAZOLAM 5 MG/5 ML (VERSED) VIAL ONE (08:36)
[2019-07-22] MEDS ORDERED: BACITRACIN INJECTION 50,000 UNIT, SODIUM CHLORIDE 0.9% IRRIGATIO 500 ML IR ONE ×2 (09:00)
--- NOTE | 2019-07-22 10:42 | NUR ---
PT ARRIVED VIA BED FROM CODE NUMBER STAMPER WITH CODE NUMBER STAMPER STAFF. PT RESTING WITH EYES CLOSED BUT EASILY AWAKENS TO VERBAL STIMULI. PT HAS NO COMPLAINTS. RIGHT CHEST ASSESSED AND IS SOFT AND NONTENDER. MINIMAL RED DRAINAGE TO DRESSING NOTED AND CIRCLED. WILL MONITOR. PRESSURE BAG IN PLACE FROM CODE NUMBER STAMPER. WATCHING CLOSELY.
[2019-07-22 10:45] VITALS: BP 116/72
--- NOTE | 2019-07-22 10:52 | Cardiac Procedure Note-CS/ASA ---
Pre-Procedure Note Pre-Op Procedure Note H&P Reviewed The H&P was reviewed, patient examined and no changes noted. Date H&P Reviewed: Jul 22, 2019 Time H&P Reviewed: 09:00 Conscious Sedation Pre-Proced Time 09:00 ASA Score 3 For ASA 3 and 4: Consider anesthesia and medical clearance. Also, for patients with a history of failed moderate sedation consider anesthesia. Airway Lungs Heart ASA score ASA 1: a normal healthy patient ASA 2: a patient with a mild systemic disease (mid diabetes, controlled hypertension, obesity ASA 3: a patient with a severe systemic disease that limits activity (angina, COPD, prior Myocardial infarction) ASA 4: a patient with an incapacitating disease that is a constant threat to life (CHF, renal failure) ASA 5: a moribund patient not expected to survive 24 hrs. (ruptured aneurysm) ASA 6: a declared brain- patient whose organs are being harvested. For emergent operations, add the letter E after the classification Mallampati Classification Grade 2 Sedation Plan Analgesia, Amnesia, Plan communicated to team members, Discussed options with patient/fam, Discussed risks with patient/fam The patient is an appropriate candidate to undergo the planned procedure, sedation, and anesthesia. The patient immediately re-assessed prior to indication. TOSHA JUNIOR MD FACP FAC CCDS Jul 22, 2019 10:52
[2019-07-22] MEDS ORDERED: CEFU500T63 PO (10:57)
--- NOTE | 2019-07-22 10:59 | Discharge Inst-Cardiology ---
Discharge Inst-Cardiac Discharge Medications New Medications: Cefuroxime Axetil (Cefuroxime) 500 Mg Tablet 500 MG PO BID, #10 TAB Continued Medications: Acetaminophen (Acetaminophen) 500 Mg Tablet 500 MG PO Q4H PRN for PAIN-MILD, #90 TAB 3 Refills USE FOR PAIN, HEADACHE OR TEMP GREATER THAN 100f Aspirin (Aspir 81) 81 Mg Tablet.dr 81 MG PO DAILY, TAB Cholecalciferol (Vitamin D3) (Vitamin D3) 5,000 Unit Capsule 5000 UNIT PO DAILY, CAP Diltiazem HCl (Diltiazem 24Hr Cd) 120 Mg Cap.er.24h 120 MG PO DAILY, #30 CAP 4 Refills HOLD IF SBP IS LESS THAN OR EQUAL TO 110 OR HEART RATE LESS THAN 50 Duloxetine HCl (Cymbalta) 20 Mg Cap 20 MG PO BID, #60 CAP 4 Refills Fluticasone Propionate (Fluticasone Propionate) 16 Gm [place].susp 1 SPRAY NS BID PRN for ALLERGIES, SPRAY Furosemide (Lasix) 20 Mg Tablet 20 MG PO Q72H, #30 TAB Gluc HCl/Csa/Chat[place] Hy/Hyalur AC (Glucosamine Chondroitin Cap) 1 Each Capsule 1 CAP PO 1800, CAP Hydralazine HCl (Hydralazine HCl) 25 Mg Tablet 25 MG PO Q6HR PRN for BLOOD PRESSURE, #60 TAB 3 Refills TO BE GIVEN IF SBP IS GREATER THAN OR EQUAL TO 160 Lactobacillus Combination No.4 (Probiotic) 1 Each Capsule 1 CAP PO BID, CAP Levalbuterol HCl (Levalbuterol HCl) 0.63 Mg/3 Ml Vial.neb 0.63 MG IH TID, INHALER Loperamide HCl (Imodium A-D) 2 Mg Tablet 1 MG PO BID, TAB TAKES 1/2 (2MG) TABLET Loratadine (Loratadine) 10 Mg Tablet 10 MG PO DAILY, TAB Losartan Potassium (Losartan Potassium) 50 Mg Tablet 50 MG PO DAILY, #30 TAB 4 Refills HOLD IF SBP IS LESS THAN OR EQUAL TO 110 Magnesium (Magnesium) 250 Mg Tablet 250 MG PO DAILY, TAB Mesalamine (Lialda) 1.2 Gm Tablet.dr 2 TAB PO DAILY WITH DINNER Metoprolol Tartrate (Metoprolol Tartrate) 25 Mg Tablet 25 MG PO BID, #60 TAB 4 Refills HOLD IF SBP IS LESS THAN OR EQUAL TO 110 OR HEART RATE LESS THAN 50 Multivit-Min/FA/Lycopene/Lut (Centrum Silver Tablet) 1 Each Tablet 1 TAB PO HS, TAB Pantoprazole Sodium (Pantoprazole Sodium) 40 Mg Tablet.dr 40 MG PO DAILY@0700, #30 TAB 4 Refills Spironolactone (Spironolactone) 25 Mg Tablet 25 MG PO DAILY, #30 TAB 4 Refills Tamsulosin HCl (Flomax) 0.4 Mg Cap 0.4 MG PO 1800, CAP Warfarin Sodium (Coumadin) 2 Mg Tablet 2 MG PO DAILY@1800, #30 TAB 4 Refills Patient Instructions Patient Instructions: Hold warfarin today. Resume tomorrow (07/23/19) TOSHA JUNIOR MD FACP FAC CCDS Jul 22, 2019 10:59
[2019-07-22] MEDS ORDERED: PATIENT MAY USE OWN MEDS, ALL PO SCH (11:00)
--- NOTE | 2019-07-22 14:10 | NUR ---
PT DISCHARGED HOME VIA PRIVATE VEHICLE PER ORDER. ALL F/U AND DISCHARGE INFORMATION GIVEN TO PATIENT AND SPOKE TO HIS VIA TELEPHONE AND ALL QUESTIONS ANSWERED. NO FURTHER CONCERNS VOICED. F/U APPOINTMENT FOR 07/24 AT 0900 GIVEN TO PATIENT. LEFT CHEST SITE FROM PACEMAKER REPLACEMENT UNCHANGED AND NO FURTHER BLEEDING NOTED PAST CIRCLED AREAS X 3 HOURS. PT INSTRUCTED TO USE ICE PACK PRN. ALL PERSONAL BELONGINGS WITH PATIENT. HE WAS AMBULATED IN THE [place] PRIOR TO DISCHARGE. PT TRANSPORTED VIA W/C WITH NO DIFFICULTIES.
--- OUTSIDE RECORDS SUMMARY | 2019-07-22 15:50 | XMS REPORT | Clinical Summary ---
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 If you d o not see the information that you expected, contact Release of Information in merged with [facility] Information Management department at [phone] for further [place] ce in locating additional records.[facility] Allergies Not on File Medications End Date Status Medication Sig Dispensed Refills Start Date Active rosuvastatin (CRESTOR) 5 Take 0.5 mg 0 mg tabletIndications: by mouth Paroxysmal atrial daily. 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 12/30/13: LHC: EF 45-50%. No PCI. Severe [place] CAD. 03/22/15: LHC: Severe multivessel ather osclerotic CAD. Normal LV size. Mild LV dysfunction EF 45%. No evidence of H F at rest. Previously stented proximal and middle LAD, widely patent, with no in-stent restenosis. 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 Blood Pressure 94 03/15/2015 3:03 PM EMT DRIVER Pulse - - Temperature - - Respiratory Rate - - Oxygen Saturation - - Inhaled Oxygen Concentration 88.9 kg (196 lb) 03/15/2015 3:03 PM EMT DRIVER Weight 171.5 cm (5' 7.5") 03/15/2015 3:03 PM EMT DRIVER Height 30.24 03/15/2015 3:03 PM EMT DRIVER Body Mass Index Plan of Treatment Health Maintenance Due Date Last Done Comments MEDICARE ANNUAL WELLNESS 1942 VISIT DTAP/TDAP VACCINES (1 - 1960 Tdap) HEPATITIS C SCREENING 1960 PHYSICAL (COMPREHENSIVE) 1960 EXAM SHINGLES RECOMBINANT 1992 VACCINE (1 of 2) PNEUMONIA (PCV13/PPSV23) 07/28/2007 VACCINES (1 of 2 - PCV13) INFLUENZA VACCINE 11/01/2019 Implants Device Identifier Shelf Expiration Date Model / Serial / L ot Implanted Type Area Manufactur er Pacemaker Pacemaker Results Not on filefrom Last 3 Months Insurance Type Payer Benefit Subscriber ID Effective Phone Address Plan / Dates Group Medicare UHC MEDICARE UHC xxxxxxxxx [id number] MEDICARE resent REPLACEMEN [id number] Advance Directives 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
--- OUTSIDE RECORDS SUMMARY | 2019-07-22 15:58 | XMS REPORT | CCD ---
Author Author Vishnu Parsons Organization [facility] Address [address] [place] [address] Phone Care Team Providers Care Manager Nursing Home Name Role Phone PP Unavailable CCM Unavailable Summary Purpose Interface Exchange Insurance Providers Payer name Policy type / Coverage type Covered democrat ID Effective Begin Date Effective End Date [facility] Commercial Insurance [id number] Unknown Unknown Family history Father Diagnosis Age At Onset Prostate Cancer Unknown Runs in the family Diagnosis Age At Onset Hypertension Unknown Mother Diagnosis Age At Onset No Family Disease Entered N/A Social History Social History Element Codes Description Effective Dates Marital status Unknown M arried Mary 02/06/2017 Number of children Unknown 5 09/22/[address]: 7298274 Quit over 10 years ago 09/22/[address]: 560159044 Never drinks alcohol 09/22/2014 Allergies, Adverse Reactions, Alerts Substance Reaction Codes Entered Date Inactivated Date Status * NO KNOWN DRUG YOSSI RGIES Unknown 09/22/2014 No Inactive Date Active Past Medical History Illness Codes Condition Status Onset Date Resolved Date Chronic atrial fibri llation ICD-9: 427.31 ICD-10: I48.2 Active 03/20/2016 Unknown Hypo-osmolality and hyponatremia ICD-9: 276.1 ICD-10: E87.1 Active 11/01/2018 Unknown Muscle weakness (gen eralized) ICD-9: 728.87 ICD-10: M62.81 Active 11/01/2018 Unknown Other emphysema ICD-9: 492.8 ICD-10: J43.8 Active 11/01/2018 Unknown Encounter for follow -up examination after completed treatment for conditions other than malignant neoplasm ICD-9: V67.59 ICD-10: Z09 Active 11/01/2018 Unknown Essential (primary) hypertension ICD-9: 401.1 ICD-10: I10 Active 11/01/2018 Unknown Other hemorrhoids ICD-9: 455.8 ICD-10: K64.8 Active 11/01/2018 Unknown Paroxysmal atrial fi brillation ICD-9: 427.31 ICD-10: I48.0 Active 11/01/2018 Unknown Rash and other nonsp ecific skin eruption ICD-9: 782.1 ICD-10: R21 Active 11/01/2018 Unknown Other acute sinusitis ICD-9: 461.8 ICD-10: J01.80 Active 02/19/2018 Unknown Other allergic rhinitis ICD-9: 477.8 ICD-10: J30.89 Active 09/27/2016 Unknown Other mucopurulent c onjunctivitis, right eye ICD-9: 372.03 ICD-10: H10.021 Active 07/08/2018 Unknown Cellulitis of right upper limb ICD-9: 682.4 ICD-10: L03.113 Active 06/04/2018 Unknown Essential (primary) hypertension ICD-9: 401.9 ICD-10: I10 Active 09/21/2014 Unknown Mixed hyperlipidemia ICD-9: 272.2 ICD-10: E78.2 Active 04/23/2018 Unknown Allergic rhinitis du e to pollen ICD-9: 477.9 ICD-10: J30.1 Active 11/22/2015 Unknown Acute laryngopharyng itis ICD-9: 465.0 ICD-10: J06.0 Active 03/29/2017 Unknown Encounter for genera l adult medical examination with abnormal findings ICD-9: [...] R07.89 Active 02/06/2017 Unknown 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 ICD-9: 041.81 ICD-10: J15.7 Active 02/06/2017 Unknown Acute bronchitis due to other specified organisms ICD-9: 466.0 ICD-10: J20.8 Active 09/27/2016 Unknown Gastro-esophageal re flux disease without esophagitis ICD-9: 530.81 ICD-10: K21.9 Active 11/06/2016 Unknown Shortness of breath ICD- 9: 786.05 ICD-10: R06.02 Active 03/28/2015 Unknown Encounter for therap eutic drug level monitoring ICD-9: V58.83 ICD-10: Z51.81 Active 03/20/2016 Unknown 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 ICD-10: K59.1 Active 01/31/2016 Unknown 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 Active 11/22/2015 Unknown Actinic keratosis ICD-9: 702.0 ICD-10: L57.0 Active 10/13/2015 Unknown Allergic rhinitis du e to pollen ICD-9: 477.0 ICD-10: J30.1 Active 10/13/2015 Unknown Neoplasm of unspecif ied behavior of bone, soft tissue, 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 ICD-10: D49.2 Active 10/13/2015 Unknown Anemia, unspecified ICD- 9: 285.9 ICD-10: D64.9 Active 04/05/2015 Unknown Melena ICD-9: 578.1 ICD-10: K92.1 Active 03/28/2015 Unknown Other lesions of ora l mucosa ICD-9: 528.9 ICD-10: K13.79 Active 02/01/2015 Unknown Other seasonal aller gic rhinitis ICD-9: 477.9 ICD-10: J30.2 Active 02/01/2015 Unknown Hyperlipidemia Unknown Active 09/22/2014 Unknow n Hypertension Unknown Active 09/22/2014 Unknow n ACTINIC KERATOSIS ICD-9: 702.0 Active 09/21/2014 Unknown ESSENTIAL HYPERTENSION ICD-9: 401.9 Active 09/21/2014 Unknown HYPERLIPIDEMIA ICD-9: 272.4 Active 09/21/2014 Unknown Problems Condition Codes Effectiv e Dates Condition Status Chronic atrial fibri llation ICD-9: 427.31 ICD-10: I48.2 03/20/2016 Active Hypo-osmolality and hyponatremia ICD-9: 276.1 ICD-10: E87.1 11/01/2018 Active Muscle weakness (gen eralized) ICD-9: 728.87 ICD-10: M62.81 11/01/2018 Active Other emphysema ICD-9: 492.8 ICD-10: J43.8 11/01/2018 Active Encounter for follow -up examination after completed treatment for conditions other than malignant neoplasm ICD-9: V67.59 ICD-10: Z09 11/01/2018 Active Essential (primary) hypertension ICD-9: 401.1 ICD-10: I10 11/01/2018 Active Other hemorrhoids ICD-9: 455.8 ICD-10: K64.8 11/01/2018 Active Paroxysmal atrial fi brillation ICD-9: 427.31 ICD-10: I48.0 11/01/2018 Active Rash and other nonsp ecific skin eruption ICD-9: 782.1 ICD-10: R21 11/01/2018 Active Other acute sinusitis ICD-9: 461.8 ICD-10: J01.80 02/19/2018 Active Other allergic rhinitis ICD-9: 477.8 ICD-10: J30.89 09/27/2016 Active Other mucopurulent c onjunctivitis, right eye ICD-9: 372.03 ICD-10: H10.021 07/08/2018 Active Cellulitis of right upper limb ICD-9: 682.4 ICD-10: L03.113 06/04/2018 Active Essential (primary) hypertension ICD-9: 401.9 ICD-10: I10 09/21/2014 Active Mixed hyperlipidemia ICD-9: 272.2 ICD-10: E78.2 04/23/2018 Active Allergic rhinitis du e to pollen ICD-9: 477.9 ICD-10: J30.1 11/22/2015 Active Acute laryngopharyng itis ICD-9: 465.0 ICD-10: J06.0 03/29/2017 Active Encounter for genera l adult medical examination with abnormal findings ICD-9: [...] ICD-10: R07.89 02/06/2017 Active 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 ICD-9: 041.81 ICD-10: J15.7 02/06/2017 Active Acute bronchitis due to other specified organisms ICD-9: 466.0 ICD-10: J20.8 09/27/2016 Active Gastro-esophageal re flux disease without esophagitis ICD-9: 530.81 ICD-10: K21.9 11/06/2016 Active Shortness of breath ICD- 9: 786.05 ICD-10: R06.02 03/28/2015 Active Encounter for therap eutic drug level monitoring ICD-9: V58.83 ICD-10: Z51.81 03/20/2016 Active 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 ICD-10: K59.1 01/31/2016 Active 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 11/22/2015 Active Actinic keratosis ICD-9: 702.0 ICD-10: L57.0 10/13/2015 Active Allergic rhinitis du e to pollen ICD-9: 477.0 ICD-10: J30.1 10/13/2015 Active Neoplasm of unspecif ied behavior of bone, soft tissue, 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 ICD-10: D49.2 10/13/2015 Active Anemia, unspecified ICD- 9: 285.9 ICD-10: D64.9 04/05/2015 Active Melena ICD-9: 578.1 ICD-10: K92.1 03/28/2015 Active Other lesions of ora l mucosa ICD-9: 528.9 ICD-10: K13.79 02/01/2015 Active Other seasonal aller gic rhinitis ICD-9: 477.9 ICD-10: J30.2 02/01/2015 Active Hyperlipidemia Unknown 09/22/2014 Active Hypertension Unknown 09/22/2014 Active ACTINIC KERATOSIS ICD-9: 702.0 09/21/2014 Active ESSENTIAL HYPERTENSION ICD-9: 401.9 09/21/2014 Active HYPERLIPIDEMIA ICD-9: 272.4 09/21/2014 Active Medications Medication Codes Instruc tions Start Date Stop Date Sta Fill Instructions Lactobacillus acidop hilus 1 billion cell tablet RxNorm: 401734 1 Tablet(s) PO QHS 12/10/2018 No Stop Date Active duloxetine 20 mg cap marck,delayed release RxNorm: 037450 1 Capsule(s) PO BID 12/10/2018 04/08/2019 Ac tive ipratropium-albutero l 0.5 mg-3 mg(2.5 mg base)/3 mL nebulization soln RxNorm: 4606277 1 INH TID and q 2 hours prn 11/30/19 19 No Stop Date Active PLAC E ON HOLD INCASE THEY NEED IT Coumadin 3 mg tablet RxNorm: 740288 1 Tablet(s) PO 4 times a week Sun S AT 11/29/2018 03/28/2019 Active hydralazine 25 mg ta blet RxNorm: 261810 1 Tablet(s) PO Q6 as needed 11/29/2018 01/27/2019 Active losartan 50 mg tablet RxNorm: 477145 1 Tablet(s) PO QPM 11/29/2018 03/28/2019 Active spironolactone 25 mg tablet RxNorm: 255454 1 Tablet(s) PO daily 11/29/2018 03/28/2019 Active diltiazem CD 120 mg capsule,extended release 24 hr RxNorm: 667239 1 Capsule(s) PO daily 11/29/2018 03/28/2019 Active Coumadin 2 mg tablet RxNorm: 774642 1 Tablet(s) PO 3 x week m w f 11/29/2018 03/28/2019 Ac tive pantoprazole 40 mg t ablet,delayed release RxNorm: 326986 1 Tablet(s) PO daily 11/29/2018 03/28/2019 Ac tive metoprolol tartrate 25 mg tablet RxNorm: 167577 1 Tablet(s) PO BID 11/29/2018 03/28/2019 Active duloxetine 20 mg cap marck,delayed release RxNorm: 209143 1 Capsule(s) PO daily 11/29/2018 12/09/2018 In active duloxetine 20 mg cap marck,delayed release RxNorm: 145414 1 Capsule(s) PO daily 11/29/2018 11/28/2018 In active aspirin 81 mg tablet RxNorm: 457228 1 Tablet(s) PO every other day 11/22/2018 No Stop Date Active melatonin 10 mg disi ntegrating tablet RxNorm: 2824750 1 Tablet(s) PO daily 11/01/2018 No Stop Date Active Lasix 20 mg tablet RxNorm: 065772 Tablet(s) PO Q72H 11/01/2018 No Stop Date Active Lialda 1.2 gram tabl et,delayed release RxNorm: 901938 2 Tablet(s) PO QHS -P rescried by Dr. Seymour 11/01/2018 No Stop Date Active Imodium A-D 2 mg tablet RxNorm: 967561 1/2 Tablet(s) PO BID 11/01/2018 No Stop Date Active metoprolol tartrate 25 mg tablet RxNorm: 854072 1 Tablet(s) PO BID 11/01/2018 11/28/2018 Inactive ipratropium-albutero l 0.5 mg-3 mg(2.5 mg base)/3 mL nebulization soln RxNorm: 5851338 1 INH Q4H and q 2 hours prn 11/02/1911/28/2018 Inactive Flonase Allergy Reli ef 50 mcg/actuation nasal spray,suspension RxNorm: 9707694 2 [place] NASAL daily as needed 201812/09/2018 Inactive diphenoxylate-atropi ne 2.5 mg-0.025 mg tablet RxNorm: 9988784 1/2 Tablet(s) PO Q12 H and q 1 q 6 hours prn 11/01/2018 12/09/2018 Inactive losartan 50 mg tablet RxNorm: 041480 1 Tablet(s) PO QPM at supper 11/01/2018 11/28/2018 Inactive Coumadin 3 mg tablet RxNorm: 890479 1 Tablet(s) PO TIW M W F 10/30/2018 11/28/2018 Inactive Klor-Con M20 mEq tab let,extended release RxNorm: 4874765 TAKE 1 TABLET EVERY MORNING 10/01/2018 10/31/2018 Inactive doxycycline hyclate 100 mg capsule RxNorm: 6617883 1 Capsule(s) PO BID 07/31/2018 08/09/2018 In active doxycycline hyclate 100 mg capsule RxNorm: 4103323 1 Capsule(s) PO BID 07/08/2018 07/17/2018 In active Kenalog 40 mg/mL nori pension for injection RxNorm: 1435927 1 Milliliter(s) Inj 07/08/2018 07/08/2018 In active ciprofloxacin 0.3 % eye drops RxNorm: 856078 2 Drop(s) ophthalmic (eye) Q2H while awake x 2 days then Q4H x 5 days 07/08/2018 10/31/2018 Inactive Keflex 500 mg capsule RxNorm: 687239 1 Capsule(s) PO TID 07/02/2018 07/08/2018 Inactive dapsone 100 mg tablet RxNorm: 788451 1 Tablet(s) PO daily 06/04/2018 06/10/2018 Inactive doxycycline hyclate 100 mg capsule RxNorm: 7816353 1 Capsule(s) PO BID 06/04/2018 06/13/2018 In active Lasix 40 mg tablet RxNorm: 327041 TAKE 1 TABLET DAILY 04/22/2018 10/31/2018 Inactive prednisone 20 mg tablet RxNorm: 098970 2 Tablet(s) PO daily 02/28/2018 03/04/2018 Inactive START TOMORROW Keflex 500 mg capsule RxNorm: 621925 1 Capsule(s) PO TID 02/28/2018 03/09/2018 Inactive ceftriaxone 500 mg s olution for injection RxNorm: 1724093 Inj 02/28/2018 02/28/2018 Inactive Kenalog 40 mg/mL nori pension for injection RxNorm: 1779127 Milliliter(s) Inj 02/26/2018 02/26/2018 In active Keflex 500 mg capsule RxNorm: 793828 1 Capsule(s) PO TID 02/19/2018 02/25/2018 Inactive Klor-Con M20 mEq tab let,extended release RxNorm: 3037435 TAKE 1 TABLET EVERY MORNING 12/04/2017 09/30/2018 Inactive prednisone 20 mg tablet RxNorm: 869704 2 Tablet(s) PO daily 11/16/2017 11/20/2017 Inactive START TOMORROW Zithromax Z-Mau 250 mg tablet RxNorm: 036719 1 Tablet(s) PO daily 11/16/2017 11/20/2017 Inactive Zithromax Z-Mau 250 mg tablet RxNorm: 564056 1 Tablet(s) PO daily 11/16/2017 11/15/2017 Inactive Keflex 500 mg capsule RxNorm: 053779 1 Capsule(s) PO TID 11/09/2017 11/15/2017 Inactive Zithromax 250 mg tablet RxNorm: 197610 [address] and 1 tab po on day 2-5 Tablet(s) PO 08/30/2017 09/03/2017 Inactive zpack x 1 doxycycline hyclate 100 mg tablet RxNorm: 804047 1 Tablet(s) PO BID 07/09/2017 07/15/2017 Inactive prednisone 20 mg tablet RxNorm: 330605 2 Tablet(s) PO daily 06/29/2017 07/01/2017 Inactive START TOMORROW Kenalog 40 mg/mL nori pension for injection RxNorm: 1522393 Milliliter(s) Inj 06/29/2017 06/29/2017 In active Lasix 40 mg tablet RxNorm: 518998 TAKE 1 TABLET DAILY 04/24/2017 04/21/2018 Inactive Diflucan 150 mg tablet RxNorm: 931979 1 Tablet(s) PO daily 04/10/2017 04/16/2017 Inactive Bactrim DS 800 mg-16 0 mg tablet RxNorm: 977762 1 Tablet(s) PO BID 04/10/2017 04/16/2017 Inactive nystatin 100,000 uni t/mL oral suspension RxNorm: 336338 5 Milliliter(s) PO QI D 04/10/2017 04/19/2017 In active cefdinir 300 mg capsule RxNorm: 442776 1 Capsule(s) PO BID 03/28/2017 04/06/2017 Inactive cefdinir 300 mg capsule RxNorm: 930995 1 Capsule(s) PO BID 02/06/2017 02/15/2017 Inactive ceftriaxone 500 mg s olution for injection RxNorm: 0387882 Inj 02/06/2017 02/06/2017 Inactive omeprazole 20 mg tab let,delayed release RxNorm: 555674 1 Tablet(s) PO daily 11/06/2016 12/05/2016 In active Phenergan with Codei ne Syrup RxNorm: 5 Milliliter(s) PO QID as n eeded 10/30/2016 10/31/2018 In active Tessalon Perles 100 mg capsule RxNorm: 237038 1-2 Capsule(s) PO TID as needed cough 10/30/2016 11/08/2016 In active Klor-Con M20 mEq tab let,extended release RxNorm: 9992757 TAKE 1 TABLET EVERY MORNING 10/26/2016 12/03/2017 Inactive ceftriaxone 500 mg s olution for injection RxNorm: 7880914 1 Milliliter(s) Inj 09/27/2016 09/27/2016 In active Phenergan with Codei ne Syrup RxNorm: 5 Milliliter(s) PO QID as n eeded 09/27/2016 10/29/2016 In active Tessalon Perles 100 mg capsule RxNorm: 591028 1-2 Capsule(s) PO TID as needed cough 09/27/2016 09/29/2016 In active Kenalog 40 mg/mL nori pension for injection RxNorm: 6394473 1 Milliliter(s) Inj 09/27/2016 09/27/2016 In active Flagyl 500 mg tablet RxNorm: 065192 1 Tablet(s) PO TID 2016 08/05/2016 Inactive Lasix 40 mg tablet RxNorm: 316542 TAKE 1 TABLET DAILY 07/26/2016 04/23/2017 Inactive Zithromax 250 mg tablet RxNorm: 454507 [address] day and 1 tab po on day 2-5 Tablet(s) PO 03/28/2016 03/27/2016 Inactive zpack x 1 Zithromax 250 mg tablet RxNorm: 163880 [address] day and 1 tab po on day 2-5 Tablet(s) PO 03/28/2016 04/01/2016 Inactive zpack x 1 Flagyl 500 mg tablet RxNorm: 075272 1 Tablet(s) PO TID 02/07/2016 02/06/2016 Inactive Flagyl 500 mg tablet RxNorm: 257013 1 Tablet(s) PO TID 02/07/2016 02/16/2016 Inactive Zyrtec-D 5 mg-120 mg tablet,extended release RxNorm: 1622869 1 Tablet(s) PO daily as needed allergies 11/23/2015 10/31/2018 Inactive Imodium A-D 2 mg tablet RxNorm: 326364 1/2 Tablet(s) PO daily 11/23/2015 10/31/2018 Inactive Mucinex 600 mg table t, extended release RxNorm: 098963 1 Tablet(s) PO BID as needed 11/23/2015 01/21/2016 In active Lasix 40 mg tablet RxNorm: 214696 TAKE 1 TABLET DAILY 11/01/2015 07/25/2016 Inactive Klor-Con M20 mEq tab let,extended release RxNorm: 2004756 TAKE 1 TABLET EVERY MORNING 11/01/2015 10/25/2016 Inactive Flonase Allergy Reli ef 50 mcg/actuation nasal spray,suspension RxNorm: 3335341 2 [place] NASAL daily 07/20/2015 10/31/2018 Inactive Kenalog 40 mg/mL nori pension for injection RxNorm: 1439497 Milliliter(s) Inj 02/02/2015 02/02/2015 In active Plavix 75 mg tablet RxNorm: 635333 1 Tablet(s) PO daily 10/05/2014 03/07/2015 Inactive Klor-Con M20 mEq tab let,extended release RxNorm: 581303 1 Tablet(s) PO QAM 10/05/2014 10/31/2015 In active Lasix 40 mg tablet RxNorm: 904847 1 Tablet(s) PO daily 10/05/2014 10/31/2015 Inactive Crestor 5 mg tablet RxNorm: 948736 1/2 Tablet(s) PO daily 10/05/2014 10/31/2018 Inactive Efudex 5 % topical c ream RxNorm: 885813 1 Application TOP BID x 2 weeks, allow healing x 1 -2 weeks, then reuse 10/05/2014 07/05/2015 Inactive metoprolol tartrate 100 mg tablet RxNorm: 520170 1 Tablet(s) PO BID 10/05/2014 12/28/2015 Inactive Pradaxa 150 mg capsule RxNorm: 7409561 1 Capsule(s) PO BID 10/05/2014 04/09/2017 Inactive amlodipine 10 mg tablet RxNorm: 793372 1/2 Tablet(s) PO QAM 10/05/2014 07/05/2015 Inactive Efudex 5 % topical c ream RxNorm: 381958 1 Application TOP BID x 2 weeks, allow healing x 1 -2 weeks, then reuse 09/22/2014 10/04/2014 Inactive Klor-Con M20 mEq tab let,extended release RxNorm: 128187 1 Tablet(s) PO QAM 09/22/2014 10/04/2014 In active Lasix 40 mg tablet RxNorm: 205252 1 Tablet(s) PO daily 09/22/2014 10/04/2014 Inactive duloxetine 20 mg cap marck,delayed release RxNorm: 002833 1 Capsule(s) PO BID No Start Date Active Centrum Silver oral RxNorm: 99099 oral No Start Date Active magnesium 250 mg tablet RxNorm: 1 Tablet(s) PO daily No Start Date Active loratadine 10 mg tablet RxNorm: 788432 1 Tablet(s) PO daily No Start Date Active Vitamin D3 5,000 uni t tablet RxNorm: 581220 1 Tablet(s) PO BID No Start Date Active Flomax 0.4 mg capsule RxNorm: 740027 1 Capsule(s) PO QPM No Start Date Active Glucosamine Chondroi t Complx Advan oral RxNorm: oral No Start D ate Active hydralazine 25 mg ta blet RxNorm: 436787 1 Tablet(s) PO Q6 as needed No Start Date 11/28/2018 Inactive Cartia XT 180 mg cap marck,extended release RxNorm: 968529 2 Capsule(s) PO daily No Start Date 10/31/2018 Inactive Lactobacillus acidop hilus 1 billion cell tablet RxNorm: 138815 1 Tablet(s) PO BID No Start Date 12/09/2018 Inactive spironolactone 25 mg tablet RxNorm: 459673 1 Tablet(s) PO daily No Start Date 11/28/2018 Inactive cetirizine 10 mg tablet RxNorm: 3651249 1 Tablet(s) PO daily at lunch No Start Date 10/31/2018 Inactive Canasa 1,000 mg rect al suppository RxNorm: 944496 [address] QHS [address] seymour No Start Date 10/31/2018 Inactive Lialda 1.2 gram tabl et,delayed release RxNorm: 742301 1 Tablet(s) PO QHS -P rescried by Dr. Seymour No Start Date 10/31/2018 Inactive melatonin 1 mg tablet RxNorm: 871120 1 Tablet(s) PO daily No Start Date 10/31/2018 Inactive Plavix 75 mg tablet RxNorm: 391069 1 Tablet(s) PO daily No Start Date 10/04/2014 Inactive Klor-Con M20 mEq tab let,extended release RxNorm: 873862 1 Tablet(s) PO QAM No Start Date 09/21/2014 Inactive diphenoxylate-atropi ne 2.5 mg-0.025 mg tablet RxNorm: 1730603 1/2 Tablet(s) PO Q12 H No Start Date 10/31/2018 Inactive Eliquis 5 mg tablet RxNorm: 8319656 1 Tablet(s) PO BID Dr Avila No Start Date 10/29/2018 Inactive diltiazem CD 120 mg capsule,extended release 24 hr RxNorm: 864438 1 Capsule(s) PO daily No Start Date 11/28/2018 Inactive diclofenac sodium 75 mg tablet,delayed release RxNorm: 312103 1 Tablet(s) PO TID as needed No Start Date 12/09/2018 Inactive Coumadin 2 mg tablet RxNorm: 205054 1 Tablet(s) PO 4 times a week T TH Sat S un No Start Date 11/28/2018 Inactive aspirin 81 mg tablet RxNorm: 998611 1 Tablet(s) PO daily No Start Date 11/21/2018 Inactive magnesium 200 mg (as magnesium oxide) tablet RxNorm: 923371 1 Tablet(s) PO daily No Start Date 11/01/2018 Inactive Emla topical RxNorm: 00819 topical No Start Date 12/09/2018 Inactive Imodium oral RxNorm: oral No Start Date 11/21 Inactive Colace 100 mg capsule RxNorm: 1269537 1 Capsule(s) PO BID No Start Date 12/09/2018 Inactive Lasix 40 mg tablet RxNorm: 122448 1 Tablet(s) PO daily No Start Date 09/21/2014 Inactive amlodipine 10 mg tablet RxNorm: 880530 1/2 Tablet(s) PO QAM No Start Date 10/04/2014 Inactive Crestor 5 mg tablet RxNorm: 272131 1/2 Tablet(s) PO daily No Start Date 10/04/2014 Inactive Flonase Allergy Reli ef 50 mcg/actuation nasal spray,suspension RxNorm: 1 [place] NASAL daily No Start Date 07/19/2015 Inactive aspirin 81 mg capsul e,delayed release RxNorm: 188712 1 Capsule(s) PO daily No Start Date 10/31/2018 Inactive losartan 25 mg tablet RxNorm: 472217 1 Tablet(s) PO QPM at supper No Start Date 10/31/2018 Inactive metoprolol tartrate 100 mg tablet RxNorm: 870882 1 Tablet(s) PO BID No Start Date 10/04/2014 Inactive ipratropium-albutero l 0.5 mg-3 mg(2.5 mg base)/3 mL nebulization soln RxNorm: 6735422 1 INH Q4H No Start Date 10/31/2018 Inactive digoxin 250 mcg tablet RxNorm: 333476 1 Tablet(s) PO daily No Start Date 10/31/2018 Inactive Probiotic 4X oral RxNorm: 1491884 oral No Start Date 07/06/2015 Inactive pantoprazole 40 mg t ablet,delayed release RxNorm: 672308 1 Tablet(s) PO daily No Start Date 11/28/2018 Inactive Probiotic oral RxNorm: 6205 oral No Start Date 10/31/2018 Inactive Pradaxa 150 mg capsule RxNorm: 3145743 1 Capsule(s) PO BID No Start Date 10/04/2014 Inactive Medication Administered Medication Codes Instruc tions Start Date Status Kenalog 40 mg/mL suspension for injection RxNorm: 2974173 1Milliliter 07/08/2018 N o longer Active ceftriaxone 500 mg solution for injection RxNorm: 0839587 02/28/2018 No longer A ctive Kenalog 40 mg/mL suspension for injection RxNorm: 4633824 Milliliter 02/26/2018 No longer Active Kenalog 40 mg/mL suspension for injection RxNorm: 2059047 Milliliter 06/29/2017 No longer Active ceftriaxone 500 mg solution for injection RxNorm: 4549580 02/06/2017 No longer A ctive Kenalog 40 mg/mL suspension for injection RxNorm: 2949305 1Milliliter 09/27/2016 N o longer Active ceftriaxone 500 mg solution for injection RxNorm: 1008950 1Milliliter 09/27/2016 N o longer Active Kenalog 40 mg/mL suspension for injection RxNorm: 9320164 Milliliter 02/02/2015 No longer Active Immunizations Vaccine Codes Date Status SHINGARIX CVX: 121 01/07 completed Influenza CVX: 141 12/26 completed Pneumococcal CVX: 133 completed Influenza CVX: 141 01/10 completed Influenza CVX: 141 01/06 completed Influenza CVX: 141 12/01 completed Zoster CVX: 121 04/02/19 12 completed Pneumococcal CVX: 33 04/2007 completed Assessments Condition Codes Effectiv e Dates Other emphysema ICD-10: J43.8 ICD-9: 492.8 12/10/2018 Hypo-osmolality and hyponatremia ICD -10: E87.1 ICD-9: 276.1 12/10/2018 Muscle weakness (generalized) ICD-10 : M62.81 ICD-9: 728.87 12/10/2018 Chronic atrial fibrillation ICD-10: I48.2 ICD-9: 427.31 12/10/2018 Rash and other nonspecific skin eruption ICD-10: R21 ICD-9: 782.1 11/01/2018 Essential (primary) hypertension ICD -10: I10 ICD-9: 401.1 11/01/2018 Encounter for follow-up examination afte r completed treatment for conditions other than malignant neoplasm ICD-10: Z09 ICD-9: V67.59 11/01/2018 Other hemorrhoids ICD-10: K64.8 ICD-9: 455.8 11/01/2018 Paroxysmal atrial fibrillation ICD-1 0: I48.0 ICD-9: 427.31 11/01/2018 Other allergic rhinitis ICD-10: J30. 89 ICD-9: 477.8 07/08/2018 Other mucopurulent conjunctivitis, right eye ICD-10: H10.021 ICD-9: 372.03 07/08/2018 Other acute sinusitis ICD-10: J01.80 ICD-9: 461.8 07/08/2018 Cellulitis of right upper limb ICD-1 0: L03.113 ICD-9: 682.4 06/04/2018 Mixed hyperlipidemia ICD-10: E78.2 ICD-9: 272.2 04/23/2018 Essential (primary) hypertension ICD -10: I10 ICD-9: 401.9 04/23/2018 Allergic rhinitis due to pollen ICD- 10: J30.1 ICD-9: 477.9 02/26/2018 Acute laryngopharyngitis ICD-10: J06 .0 ICD-9: 465.0 11/09/2017 Encounter for general adult medical exam ination with abnormal findings ICD-10: Z00.01 ICD-9: V70.0 2017 Cough ICD-10: R05 ICD-9: 786.2 07/23/2017 Chronic obstructive pulmonary disease wi th (acute) exacerbation ICD-10: J44.1 ICD-9: 491.21 07/09/2017 Chronic obstructive pulmonary disease wi th acute lower respiratory infection ICD-10: J44.0 ICD-9: [...] 173.22 11/23/2015 Allergic rhinitis due to pollen ICD- 10: J30.1 ICD-9: 477.0 10/14/2015 Actinic keratosis ICD-10: L57.0 ICD-9: 702.0 10/14/2015 Neoplasm of unspecified behavior of bone , soft tissue, and skin ICD-10: D49.2 ICD-9: 239.2 10/14/2015 Anemia, unspecified ICD-10: D64.9 ICD-9: 285.9 04/06/2015 Melena ICD-10: K92.1 ICD-9: 578.1 03/29/2015 Other lesions of oral mucosa ICD-10: K13.79 ICD-9: 528.9 02/02/2015 Other seasonal allergic rhinitis ICD -10: J30.2 ICD-9: 477.9 02/02/2015 ACTINIC KERATOSIS ICD-9: 702.0 09/22/2014 ESSENTIAL HYPERTENSION ICD-9: 401.9 09/22/2014 HYPERLIPIDEMIA ICD-9: 272.4 09/22/2014 Reason For Visit Reason For Visit Effective Dates Notes muscle weakness 12/10/2018 muscle weakness 11/22/2018 Hospital Follow Up 11/01/2018 eye discharge 07/08/2018 bite to the hand [...] Observation Code Item Item Code Result Date Pt [id number] PT 16.0 seconds 12/17/2018 Pt [id number] INR 1.3 12/17/2018 Pt Zcm0695 Low Intensity - 1.5-2.0 12/17/2018 Pt [id number] Mod intensity - 2.0-3.0 12/17/2018 Pt Baj5299 Hi intensity - 3.0-4.0 12/17/2018 Pt Szm6296 PT 16.3 seconds 12/10/2018 Pt [id number] INR 1.4 12/10/2018 Pt [id number] Low Intensity - 1.5-2.0 12/10/2018 Pt Tao0311 Mod intensity - 2.0-3.0 12/10/2018 Pt Cfs3839 Hi intensity - 3.0-4.0 12/10/2018 Comp Metabolic Rwf992 NA 139 mEq/L 12/10/2018 Comp Metabolic Bhj828 K 4.4 mEq/L 12/10/2018 Comp Metabolic Oda563 CL 103 mEq/L 12/10/2018 Comp Metabolic Pqf628 CO2 28.0 mEq/L 12/10/2018 Comp Metabolic Wsk811 AN ION GAP 12 12/10/2018 Comp Metabolic Ico051 GL UCOSE 114 mg/dL 12/10/2018 Comp Metabolic Rpq037 Cr eat 1.0 mg/dL 12/10/2018 Comp Metabolic Zwz858 eG FR 82 ml/min/1.73m2 12/10 Comp Metabolic Juk180 BUN 14 mg/dL 12/10/2018 Comp Metabolic Fbb071 B/ C Ratio 14.7 Ratio 12/10/2018 Comp Metabolic Ria435 CA LCIUM 9.0 mg/dL 12/10/2018 Comp Metabolic Gad498 AL K PHOS 76 U/L 12/10/2018 Comp Metabolic Zfz881 T(SGOT) 17 U/L 12/10/2018 Comp Metabolic Tbv453 AL T(SGPT) 12 U/L 12/10/2018 Comp Metabolic Umr794 BI LI T 0.3 mg/dL 12/10/2018 Comp Metabolic Gmu288 AL BUMIN 3.5 g/dL 12/10/2018 Comp Metabolic Czl178 TP RO 6.5 g/dL 12/10/2018 Comp Metabolic Dms332 GL OB 3.0 g/dL 12/10/2018 Comp Metabolic Akc303 A/ G Ratio 1.2 Ratio 12/10/2018 Comp Metabolic Abq467 Os mo 279 mOsmo 12/10/2018 Electrolytes Ord62 NA 139 mEq/L 11/22/2018 Electrolytes Ord62 K 3.9 mEq/L 11/22/2018 Electrolytes Ord62 CL 103 mEq/L 11/22/2018 Electrolytes Ord62 CO2 28.0 mEq/L 11/22/2018 Electrolytes Ord62 ANION GAP 12 11/22/2018 Cbc With Differential Ord2 WBC 10.09 K/ul [...] 31.4 pg 10/23/2017 Cbc With Differential Ord2 Alexander% 8.5 % 10/23/2017 Cbc With Differential Ord2 [...] 2.73 K/ul 10/23/2017 Cbc With Differential Ord2 Alexander ABS# 0.9 K/ul 10/23/2017 Cbc With Differential Ord2 Eos ABS# 0.6 K/ul 10/23/2017 Cbc With Differential Ord2 Baso ABS# 0.0 K/ul 10/23/2017 Digoxin Ord9 DIGOXIN 1.0 NG/ML 10/23/2017 Lipid Ord30 CHOL 108 mg/dL 10/23/2017 Lipid Ord30 HDL 39.0 mg/dl 10/23/2017 Lipid Ord30 TRIG 175 mg/dL 10/23/2017 Lipid Ord30 LDL 34 mg/dL 10/23/2017 Lipid Ord30 C/HDL 2.8 Ratio 10/23/2017 Comp Metabolic Krq473 NA 140 mEq/L 10/23/2017 Comp Metabolic Pcw518 K 4.1 mEq/L 10/23/2017 Comp Metabolic Wfe890 CL 102 mEq/L 10/23/2017 Comp Metabolic Jgi714 CO2 30.0 mEq/L 10/23/2017 Comp Metabolic Msu052 AN ION GAP 12 10/23/2017 Comp Metabolic Fps644 GL UCOSE 124 mg/dL 10/23/2017 Comp Metabolic Ffv601 Cr eat 1.1 mg/dL 10/23/2017 Comp Metabolic Vgd445 eG FR 71 ml/min/1.73m2 10/23 Comp Metabolic Ilg522 BUN 11 mg/dL 10/23/2017 Comp Metabolic Vza826 B/ C Ratio 10.2 Ratio 10/23/2017 Comp Metabolic Tkv223 CA LCIUM 9.3 mg/dL 10/23/2017 Comp Metabolic Mzl025 AL K PHOS 72 U/L 10/23/2017 Comp Metabolic Gbt344 T(SGOT) 21 U/L 10/23/2017 Comp Metabolic Ecv683 AL T(SGPT) 17 U/L 10/23/2017 Comp Metabolic Gbj621 BI LI T 0.8 mg/dL 10/23/2017 Comp Metabolic Yay569 AL BUMIN 4.3 g/dL 10/23/2017 Comp Metabolic Xit206 TP RO 7.4 g/dL 10/23/2017 Comp Metabolic Yzt538 GL OB 3.1 g/dL 10/23/2017 Comp Metabolic Xkh653 A/ G Ratio 1.4 Ratio 10/23/2017 Comp Metabolic Qvl518 Os mo 280 mOsmo 10/23/2017 Tsh Ord6 TSH (3rd IS) 3.37 uIU/mL 10/23/2017 Test(s) Not Perfromed [id number] Test(s) Not Performed Test(s) Not Performed. See Below: 10/23/2017 Test(s) Not Perfromed [id number] TEST NAME PSA 10/23/2017 Test(s) Not Perfromed [id number] Rejection Reason PSA Performed yearly at Dr. Stone's [facility] 10/23/2017 Test(s) Not Perfromed HID0847 COMMENT N/A 10/23/2017 Test(s) Not Perfromed QCG6000 [employer] Gian Johnson 10/23/2017 Comp Metabolic Jwv949 NA 137 mEq/L 03/21/2016 Comp Metabolic Yky164 K 4.6 mEq/L 03/21/2016 Comp Metabolic Gdb742 CL 101 mEq/L 03/21/2016 Comp Metabolic Dvd940 CO2 31.0 mEq/L 03/21/2016 Comp Metabolic Vcz113 AN ION GAP 10 03/21/2016 Comp Metabolic Aqy600 GL UCOSE 106 mg/dL 03/21/2016 Comp Metabolic Lek638 Cr eat 1.1 mg/dL 03/21/2016 Comp Metabolic Rmi000 eG FR 69 ml/min/1.73m2 03/21 Comp Metabolic Vst536 BUN 11 mg/dL 03/21/2016 Comp Metabolic Bma497 B/ C Ratio 9.9 Ratio 03/21/2016 Comp Metabolic Kzr643 CA LCIUM 9.5 mg/dL 03/21/2016 Comp Metabolic Ucg391 AL K PHOS 88 U/L 03/21/2016 Comp Metabolic Ewi560 T(SGOT) 21 U/L 03/21/2016 Comp Metabolic Ynz597 AL T(SGPT) 15 U/L 03/21/2016 Comp Metabolic Mkh314 BI LI T 0.7 mg/dL 03/21/2016 Comp Metabolic Krd161 AL BUMIN 4.2 g/dL 03/21/2016 Comp Metabolic Vfq916 TP RO 7.9 g/dL 03/21/2016 Comp Metabolic Suz124 GL OB 3.7 g/dL 03/21/2016 Comp Metabolic Wvr887 A/ G Ratio 1.1 Ratio 03/21/2016 Comp Metabolic Zxs277 Os mo 274 mOsmo 03/21/2016 Lipid Ord30 CHOL 107 [...] 31.3 pg 03/21/2016 Cbc With Differential Ord2 Alexander% 10.3 % 03/21/2016 Cbc With Differential Ord2 [...] 2.51 K/ul 03/21/2016 Cbc With Differential Ord2 Alexander ABS# 1.2 K/ul 03/21/2016 Cbc With Differential Ord2 Eos ABS# 0.7 K/ul 03/21/2016 Cbc With Differential Ord2 Baso ABS# 0.0 K/ul 03/21/2016 Clostridium Diff Tox A/B Boq611 Cdiff Negative 02/01/2016 Culture Mrsa [id number] MRSA CULTURE SEE NOTES 04/09/2015 Digoxin Ord9 [...] Ord9 DIGOXIN 1.0 NG/ML 03/11/2015 Comp Metabolic Cok583 NA 142 mEq/L 03/11/2015 Comp Metabolic Xac683 K 4.4 mEq/L 03/11/2015 Comp Metabolic Hvp810 CL 107 mEq/L 03/11/2015 Comp Metabolic Cpx813 CO2 27.0 mEq/L 03/11/2015 Comp Metabolic Onj944 AN ION GAP 12 03/11/2015 Comp Metabolic Cnc845 GL UCOSE 106 mg/dL 03/11/2015 Comp Metabolic Qax676 Cr eat 1.1 mg/dL 03/11/2015 Comp Metabolic Pjn355 eG FR 68 ml/min/1.73m2 03/11 Comp Metabolic Koh565 BUN 16 mg/dL 03/11/2015 Comp Metabolic Wxp958 B/ C Ratio 14.3 Ratio 03/11/2015 Comp Metabolic Goj886 CA LCIUM 9.5 mg/dL 03/11/2015 Comp Metabolic Hvv270 AL K PHOS 82 U/L 03/11/2015 Comp Metabolic Opn067 T(SGOT) 20 U/L 03/11/2015 Comp Metabolic Scf733 AL T(SGPT) 17 U/L 03/11/2015 Comp Metabolic Awh934 BI LI T 0.4 mg/dL 03/11/2015 Comp Metabolic Cfp984 AL BUMIN 4.0 g/dL 03/11/2015 Comp Metabolic Egl546 TP RO 6.9 g/dL 03/11/2015 Comp Metabolic Kah417 GL OB 2.9 g/dL 03/11/2015 Comp Metabolic Pxt697 A/ G Ratio 1.4 Ratio 03/11/2015 Comp Metabolic Nwh150 Os mo 285 mOsmo 03/11/2015 Metabolic Ord15 NA 137 [...] Result Effective Dates Constitutional No recent illness 12/10/2018 Constitutional No anorexia 12/10/2018 Constitutional No night sweats 12/10/2018 Constitutional No chills 12/10/2018 Constitutional No diaphoresis 12/10/2018 Constitutional fatigue 0 12/10/2018 Constitutional No fever 12/10/2018 Constitutional No insomnia 12/10/2018 Constitutional No malaise 12/10/2018 Constitutional No weight loss 12/10/2018 Constitutional weight gain 12/10/2018 Eyes No eye discharge Eyes No eye erythema 12/2018 Ears/Nose/Throat/Neck No dizziness 12/10/2018 Ears/Nose/Throat/Neck No headache 12/10/2018 Ears/Nose/Throat/Neck hoarseness 12/10/2018 Ears/Nose/Throat/Neck No nasal allergies 12/10/2018 Ears/Nose/Throat/Neck No nasal discharge 12/10/2018 Ears/Nose/Throat/Neck No otalgia 12/10/2018 Ears/Nose/Throat/Neck No sinus congestion 12/10/2018 Ears/Nose/Throat/Neck No sore throat 12/10/2018 Cardiovascular No chest pain/pressure 12/10/2018 Cardiovascular No edema 12/10/2018 Cardiovascular fatigue 0 12/10/2018 Respiratory No productive sputum 12/10/2018 Respiratory dyspnea on exertion 12/10/2018 Gastrointestinal No abdominal pain 12/10/2018 Gastrointestinal No constipation 12/10/2018 Gastrointestinal No diarrhea 12/10/2018 Genitourinary/Nephrology No dysuria 12/10/2018 Genitourinary/Nephrology No nocturia 12/10/2018 Genitourinary/Nephrology No urinary incontinence 12/10/2018 Musculoskeletal muscle weakness 12/10/2018 Dermatologic No rash 12/2018 Neurologic No alteration of consciousness 12/10/2018 Psychiatric No anxiety 0 12/10/2018 Psychiatric No depression 12/10/2018 Constitutional No recent illness 11/22/2018 Constitutional No night sweats 11/22/2018 Constitutional No chills 11/22/2018 Constitutional No diaphoresis 11/22/2018 Constitutional fatigue 0 11/22/2018 Constitutional No fever 11/22/2018 Constitutional No insomnia 11/22/2018 Constitutional No malaise 11/22/2018 Constitutional No weight loss 11/22/2018 Eyes No eye discharge Eyes No eye erythema Ears/Nose/Throat/Neck No headache 11/22/2018 Ears/Nose/Throat/Neck hoarseness 11/22/2018 Ears/Nose/Throat/Neck No nasal allergies 11/22/2018 Ears/Nose/Throat/Neck No nasal discharge 11/22/2018 Ears/Nose/Throat/Neck No otalgia 11/22/2018 Ears/Nose/Throat/Neck No sinus congestion 11/22/2018 Ears/Nose/Throat/Neck No sore throat 11/22/2018 Cardiovascular No chest pain/pressure 11/22/2018 Cardiovascular No edema 11/22/2018 Cardiovascular fatigue 0 11/22/2018 Respiratory No productive sputum 11/22/2018 Respiratory cough 2018 Respiratory dyspnea on exertion 11/22/2018 Gastrointestinal No abdominal pain 11/22/2018 Gastrointestinal No constipation 11/22/2018 Genitourinary/Nephrology No dysuria 11/22/2018 Genitourinary/Nephrology No nocturia 11/22/2018 Genitourinary/Nephrology No urinary incontinence 11/22/2018 Musculoskeletal muscle weakness 11/22/2018 Dermatologic No rash Neurologic No alteration of consciousness 11/22/2018 Psychiatric No anxiety 0 11/22/2018 Psychiatric No depression 11/22/2018 Gastrointestinal No diarrhea 11/22/2018 Constitutional No anorexia 11/22/2018 Constitutional weight gain 11/22/2018 Ears/Nose/Throat/Neck No dizziness 11/22/2018 Constitutional recent illness 11/01/2018 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 Constitutional No night sweats 11/01/2018 Constitutional No chills 11/01/2018 Constitutional No diaphoresis 11/01/2018 Constitutional fatigue 0 11/01/2018 Constitutional No insomnia 11/01/2018 Constitutional No malaise 11/01/2018 Eyes No eye discharge Eyes No eye erythema 05/2018 Ears/Nose/Throat/Neck No headache 11/01/2018 Ears/Nose/Throat/Neck hoarseness 11/01/2018 Ears/Nose/Throat/Neck No nasal allergies 11/01/2018 Ears/Nose/Throat/Neck No nasal discharge 11/01/2018 Ears/Nose/Throat/Neck No sore throat 11/01/2018 Ears/Nose/Throat/Neck No otalgia 11/01/2018 Ears/Nose/Throat/Neck No sinus congestion 11/01/2018 Cardiovascular No chest pain/pressure 11/01/2018 Cardiovascular fatigue 0 11/01/2018 Respiratory No productive sputum 11/01/2018 Respiratory dyspnea on exertion 11/01/2018 Gastrointestinal No abdominal pain 11/01/2018 Gastrointestinal No constipation 11/01/2018 Gastrointestinal diarrhea 11/01/2018 Genitourinary/Nephrology No dysuria 11/01/2018 Genitourinary/Nephrology No nocturia 11/01/2018 Genitourinary/Nephrology No urinary incontinence 11/01/2018 Dermatologic No rash 05/2018 Dermatologic sores 11/01 Neurologic No alteration of consciousness 11/01/2018 Psychiatric No anxiety 0 11/01/2018 Psychiatric No depression 11/01/2018 Constitutional No fever 11/01/2018 Constitutional weight loss 11/01/2018 Musculoskeletal muscle weakness 11/01/2018 Respiratory cough 2018 Cardiovascular No edema 11/01/2018 Ears/Nose/Throat/Neck dizziness 11/01/2018 Constitutional recent illness 07/08/2018 Constitutional No chills 07/08/2018 Constitutional No diaphoresis 07/08/2018 Constitutional No fever 07/08/2018 Eyes eye erythema 2018 Ears/Nose/Throat/Neck nasal allergies 07/08/2018 Ears/Nose/Throat/Neck nasal discharge 07/08/2018 Ears/Nose/Throat/Neck postnasal drip 07/08/2018 Ears/Nose/Throat/Neck sinus congestion 07/08/2018 Ears/Nose/Throat/Neck No sore throat 07/08/2018 Cardiovascular No chest pain/pressure 07/08/2018 Cardiovascular No dyspnea 07/08/2018 Respiratory No chest congestion 07/08/2018 Respiratory cough 2018 Respiratory No dyspnea 0 07/08/2018 Gastrointestinal No abdominal pain 07/08/2018 Gastrointestinal No constipation 07/08/2018 Gastrointestinal No diarrhea 07/08/2018 Gastrointestinal No nausea 07/08/2018 Gastrointestinal No vomiting 07/08/2018 Dermatologic No rash 10/2018 Neurologic No alteration of consciousness 07/08/2018 Neurologic No mental status change 07/08/2018 Constitutional No recent illness 06/04/2018 Constitutional No chills 06/04/2018 Constitutional No diaphoresis 06/04/2018 Constitutional No fever 06/04/2018 Eyes No eye erythema 07/2018 Ears/Nose/Throat/Neck No nasal discharge 06/04/2018 Cardiovascular No chest pain/pressure 06/04/2018 Respiratory No cough 07/2018 Neurologic No alteration of consciousness 06/04/2018 Neurologic No mental status change 06/04/2018 Dermatologic cellulitis 06/04/2018 Constitutional No anorexia 04/23/2018 Constitutional No night sweats 04/23/2018 Constitutional No chills 04/23/2018 Constitutional No diaphoresis 04/23/2018 Constitutional No insomnia 04/23/2018 Constitutional No malaise 04/23/2018 Eyes No eye discharge Eyes No eye erythema Ears/Nose/Throat/Neck No headache 04/23/2018 Ears/Nose/Throat/Neck No nasal allergies 04/23/2018 Ears/Nose/Throat/Neck No nasal discharge 04/23/2018 Ears/Nose/Throat/Neck No sore throat 04/23/2018 Ears/Nose/Throat/Neck No otalgia 04/23/2018 Ears/Nose/Throat/Neck No sinus congestion 04/23/2018 Cardiovascular arrhythmia 04/23/2018 Cardiovascular No chest pain/pressure 04/23/2018 Cardiovascular fatigue 0 04/23/2018 Respiratory No productive sputum 04/23/2018 Respiratory dyspnea on exertion 04/23/2018 Gastrointestinal No abdominal pain 04/23/2018 Gastrointestinal No constipation 04/23/2018 Gastrointestinal No diarrhea 04/23/2018 Genitourinary/Nephrology No dysuria 04/23/2018 Genitourinary/Nephrology No nocturia 04/23/2018 Genitourinary/Nephrology No urinary incontinence 04/23/2018 Musculoskeletal No stiffness 04/23/2018 Musculoskeletal No swelling 04/23/2018 Musculoskeletal No muscle weakness 04/23/2018 Musculoskeletal No myalgias 04/23/2018 Dermatologic No rash Dermatologic sores 04/23 Neurologic No alteration of consciousness 04/23/2018 Psychiatric No anxiety 0 04/23/2018 Psychiatric No depression 04/23/2018 Constitutional No recent illness 04/23/2018 Constitutional No fatigue 04/23/2018 Ears/Nose/Throat/Neck hoarseness 04/23/2018 Constitutional recent illness 02/28/2018 Constitutional No chills 02/28/2018 Constitutional No diaphoresis 02/28/2018 Constitutional No fever 02/28/2018 Eyes No eye erythema Ears/Nose/Throat/Neck nasal allergies 02/28/2018 Ears/Nose/Throat/Neck nasal discharge 02/28/2018 Ears/Nose/Throat/Neck postnasal drip 02/28/2018 Ears/Nose/Throat/Neck sinus congestion 02/28/2018 Ears/Nose/Throat/Neck No sore throat 02/28/2018 Cardiovascular No chest pain/pressure 02/28/2018 Cardiovascular No dyspnea 02/28/2018 Respiratory No chest congestion 02/28/2018 Respiratory cough 2017 Respiratory No dyspnea 1 04/30/2017 Gastrointestinal No abdominal pain 02/28/2018 Gastrointestinal No constipation 02/28/2018 Gastrointestinal No diarrhea 02/28/2018 Gastrointestinal No nausea 02/28/2018 Gastrointestinal No vomiting 02/28/2018 Dermatologic No rash Neurologic No alteration of consciousness 02/28/2018 Neurologic No mental status change 02/28/2018 Constitutional recent illness 02/19/2018 Constitutional No chills 02/19/2018 Constitutional No diaphoresis 02/19/2018 Constitutional No fever 02/19/2018 Eyes No eye erythema Ears/Nose/Throat/Neck nasal allergies 02/19/2018 Ears/Nose/Throat/Neck nasal discharge 02/19/2018 Ears/Nose/Throat/Neck postnasal drip 02/19/2018 Ears/Nose/Throat/Neck sinus congestion 02/19/2018 Ears/Nose/Throat/Neck No sore throat 02/19/2018 Cardiovascular No chest pain/pressure 02/19/2018 Cardiovascular No dyspnea 02/19/2018 Respiratory No chest congestion 02/19/2018 Respiratory cough 2017 Respiratory No dyspnea 1 04/21/2017 Gastrointestinal No abdominal pain 02/19/2018 Gastrointestinal No constipation 02/19/2018 Gastrointestinal No diarrhea 02/19/2018 Gastrointestinal No nausea 02/19/2018 Gastrointestinal No vomiting 02/19/2018 Dermatologic No rash Neurologic No alteration of consciousness 02/19/2018 Neurologic No mental status change 02/19/2018 Constitutional recent illness 11/09/2017 Constitutional No chills 11/09/2017 Constitutional No diaphoresis 11/09/2017 Constitutional No fever 11/09/2017 Eyes No eye erythema 12/2017 Ears/Nose/Throat/Neck nasal allergies 11/09/2017 Ears/Nose/Throat/Neck nasal discharge 11/09/2017 Ears/Nose/Throat/Neck postnasal drip 11/09/2017 Ears/Nose/Throat/Neck sinus congestion 11/09/2017 Ears/Nose/Throat/Neck sore throat 11/09/2017 Cardiovascular No chest pain/pressure 11/09/2017 Cardiovascular No dyspnea 11/09/2017 Respiratory No chest congestion 11/09/2017 Respiratory cough 2017 Respiratory No dyspnea 0 11/09/2017 Gastrointestinal No constipation 11/09/2017 Gastrointestinal No diarrhea 11/09/2017 Gastrointestinal No nausea 11/09/2017 Gastrointestinal No vomiting 11/09/2017 Dermatologic No rash 12/2017 Neurologic No alteration of consciousness 11/09/2017 Neurologic No mental status change 11/09/2017 Constitutional No anorexia 10/22/2017 Constitutional No night sweats 10/22/2017 Constitutional No chills 10/22/2017 Constitutional No diaphoresis 10/22/2017 Constitutional No insomnia 10/22/2017 Constitutional No malaise 10/22/2017 Eyes No eye discharge Eyes No eye erythema Ears/Nose/Throat/Neck No headache 10/22/2017 Ears/Nose/Throat/Neck No nasal allergies 10/22/2017 Ears/Nose/Throat/Neck No nasal discharge 10/22/2017 Ears/Nose/Throat/Neck No sore throat 10/22/2017 Ears/Nose/Throat/Neck No otalgia 10/22/2017 Ears/Nose/Throat/Neck No sinus congestion 10/22/2017 Cardiovascular arrhythmia 10/22/2017 Cardiovascular No chest pain/pressure 10/22/2017 Cardiovascular fatigue 0 10/22/2017 Respiratory No productive sputum 10/22/2017 Respiratory dyspnea on exertion 10/22/2017 Gastrointestinal No abdominal pain 10/22/2017 Gastrointestinal No constipation 10/22/2017 Gastrointestinal No diarrhea 10/22/2017 Genitourinary/Nephrology No dysuria 10/22/2017 Genitourinary/Nephrology No nocturia 10/22/2017 Genitourinary/Nephrology No urinary incontinence 10/22/2017 Musculoskeletal No stiffness 10/22/2017 Musculoskeletal No swelling 10/22/2017 Musculoskeletal No muscle weakness 10/22/2017 Musculoskeletal No myalgias 10/22/2017 Dermatologic No rash Dermatologic sores 10/22 Neurologic No alteration of consciousness 10/22/2017 Psychiatric No anxiety 0 10/22/2017 Psychiatric No depression 10/22/2017 Constitutional No recent illness 2017 Constitutional No chills 2017 Constitutional No diaphoresis 2017 Constitutional No fever 2017 Eyes No eye erythema Ears/Nose/Throat/Neck No nasal discharge 2017 Cardiovascular No chest pain/pressure 2017 Cardiovascular No dyspnea 2017 Respiratory No cough Respiratory No dyspnea 0 2017 Neurologic No alteration of consciousness 2017 Neurologic No mental status change 2017 Constitutional No anorexia 07/23/2017 Constitutional No night sweats 07/23/2017 Constitutional No chills 07/23/2017 Constitutional No diaphoresis 07/23/2017 Constitutional No insomnia 07/23/2017 Constitutional No malaise 07/23/2017 Eyes No eye discharge Eyes No eye erythema Ears/Nose/Throat/Neck No headache 07/23/2017 Ears/Nose/Throat/Neck nasal allergies 07/23/2017 Ears/Nose/Throat/Neck nasal discharge 07/23/2017 Ears/Nose/Throat/Neck No sore throat 07/23/2017 Ears/Nose/Throat/Neck No otalgia 07/23/2017 Ears/Nose/Throat/Neck No sinus congestion 07/23/2017 Cardiovascular arrhythmia 07/23/2017 Cardiovascular No chest pain/pressure 07/23/2017 Cardiovascular fatigue 0 07/23/2017 Respiratory No productive sputum 07/23/2017 Respiratory dyspnea on exertion 07/23/2017 Gastrointestinal No abdominal pain 07/23/2017 Gastrointestinal No constipation 07/23/2017 Gastrointestinal No diarrhea 07/23/2017 Genitourinary/Nephrology No dysuria 07/23/2017 Genitourinary/Nephrology No nocturia 07/23/2017 Genitourinary/Nephrology No urinary incontinence 07/23/2017 Musculoskeletal No stiffness 07/23/2017 Musculoskeletal No swelling 07/23/2017 Musculoskeletal No muscle weakness 07/23/2017 Musculoskeletal No myalgias 07/23/2017 Dermatologic No rash Dermatologic sores 07/23 Neurologic No alteration of consciousness 07/23/2017 Psychiatric No anxiety 0 07/23/2017 Psychiatric No depression 07/23/2017 Cardiovascular hypertension 07/23/2017 Respiratory cough 2017 Constitutional recent illness 07/09/2017 Constitutional No anorexia 07/09/2017 Constitutional No night sweats 07/09/2017 Constitutional No chills 07/09/2017 Constitutional No diaphoresis 07/09/2017 Constitutional No fatigue 07/09/2017 Constitutional No fever 07/09/2017 Constitutional No insomnia 07/09/2017 Constitutional No malaise 07/09/2017 Constitutional No weight loss 07/09/2017 Constitutional No weight gain 07/09/2017 Eyes No eye discharge Eyes No eye erythema 12/2017 Ears/Nose/Throat/Neck nasal allergies 07/09/2017 Ears/Nose/Throat/Neck nasal discharge 07/09/2017 Cardiovascular No chest pain/pressure 07/09/2017 Cardiovascular No edema 07/09/2017 Respiratory productive sputum 07/09/2017 Respiratory cough 2017 Respiratory dyspnea on exertion 07/09/2017 Gastrointestinal No abdominal pain 07/09/2017 Genitourinary/Nephrology No dysuria 07/09/2017 Musculoskeletal No joint complaint 07/09/2017 Dermatologic No rash 12/2017 Neurologic No alteration of consciousness 07/09/2017 Constitutional recent illness 06/29/2017 Constitutional No anorexia 06/29/2017 Constitutional No night sweats 06/29/2017 Constitutional No chills 06/29/2017 Constitutional No diaphoresis 06/29/2017 Constitutional No fatigue 06/29/2017 Constitutional No fever 06/29/2017 Constitutional No insomnia 06/29/2017 Constitutional No malaise 06/29/2017 Constitutional No weight gain 06/29/2017 Constitutional No weight loss 06/29/2017 Eyes No eye discharge Eyes No eye erythema Ears/Nose/Throat/Neck nasal allergies 06/29/2017 Ears/Nose/Throat/Neck nasal discharge 06/29/2017 Cardiovascular No chest pain/pressure 06/29/2017 Cardiovascular No edema 06/29/2017 Respiratory productive sputum 06/29/2017 Respiratory dyspnea on exertion 06/29/2017 Respiratory cough 2017 Gastrointestinal No abdominal pain 06/29/2017 Musculoskeletal No joint complaint 06/29/2017 Genitourinary/Nephrology No dysuria 06/29/2017 Dermatologic No rash Neurologic No alteration of consciousness 06/29/2017 Constitutional recent illness 04/23/2017 Constitutional No chills 04/23/2017 Constitutional No diaphoresis 04/23/2017 Constitutional No fever 04/23/2017 Eyes No blindness 2017 Ears/Nose/Throat/Neck nasal allergies 04/23/2017 Ears/Nose/Throat/Neck nasal discharge 04/23/2017 Ears/Nose/Throat/Neck postnasal drip 04/23/2017 Cardiovascular No chest pain/pressure 04/23/2017 Cardiovascular No dyspnea 04/23/2017 Respiratory chest congestion 04/23/2017 Respiratory cough 2017 Respiratory No dyspnea 0 04/23/2017 Respiratory wheezing Gastrointestinal No abdominal pain 04/23/2017 Gastrointestinal No nausea 04/23/2017 Gastrointestinal No vomiting 04/23/2017 Dermatologic No rash Neurologic No alteration of consciousness 04/23/2017 Neurologic No mental status change 04/23/2017 Constitutional recent illness 04/10/2017 Constitutional No chills 04/10/2017 Constitutional No diaphoresis 04/10/2017 Constitutional fatigue 0 04/10/2017 Constitutional No fever 04/10/2017 Eyes No blindness 2017 Ears/Nose/Throat/Neck No headache 04/10/2017 Ears/Nose/Throat/Neck nasal allergies 04/10/2017 Ears/Nose/Throat/Neck nasal discharge 04/10/2017 Ears/Nose/Throat/Neck sore throat 04/10/2017 Ears/Nose/Throat/Neck postnasal drip 04/10/2017 Cardiovascular No chest pain/pressure 04/10/2017 Cardiovascular No dyspnea 04/10/2017 Cardiovascular No fatigue 04/10/2017 Respiratory chest congestion 04/10/2017 Respiratory cough 2017 Respiratory No dyspnea 0 04/10/2017 Respiratory wheezing 12/2017 Gastrointestinal No abdominal pain 04/10/2017 Gastrointestinal No diarrhea 04/10/2017 Gastrointestinal No nausea 04/10/2017 Gastrointestinal No vomiting 04/10/2017 Musculoskeletal No stiffness 04/10/2017 Musculoskeletal No arthralgia(s) 04/10/2017 Dermatologic No rash 12/2017 Dermatologic No sores Neurologic No alteration of consciousness 04/10/2017 Neurologic No mental status change 04/10/2017 Psychiatric No anxiety 0 04/10/2017 Psychiatric No depression 04/10/2017 Respiratory hemoptysis 0 04/10/2017 Respiratory dyspnea on exertion 04/10/2017 Constitutional recent illness 03/29/2017 Constitutional chills Constitutional No diaphoresis 03/29/2017 Constitutional No fever 03/29/2017 Eyes No eye erythema Ears/Nose/Throat/Neck nasal allergies 03/29/2017 Ears/Nose/Throat/Neck nasal discharge 03/29/2017 Ears/Nose/Throat/Neck postnasal drip 03/29/2017 Ears/Nose/Throat/Neck sinus congestion 03/29/2017 Ears/Nose/Throat/Neck sore throat 03/29/2017 Cardiovascular No chest pain/pressure 03/29/2017 Cardiovascular No dyspnea 03/29/2017 Respiratory No chest congestion 03/29/2017 Respiratory cough 2016 Respiratory No dyspnea 1 05/30/2016 Gastrointestinal No constipation 03/29/2017 Gastrointestinal No diarrhea 03/29/2017 Gastrointestinal No nausea 03/29/2017 Gastrointestinal No vomiting 03/29/2017 Dermatologic No rash Neurologic No alteration of consciousness 03/29/2017 Neurologic No mental status change 03/29/2017 Constitutional recent illness 02/06/2017 Constitutional fatigue 1 04/08/2016 Ears/Nose/Throat/Neck No headache 02/06/2017 Ears/Nose/Throat/Neck sore throat 02/06/2017 Cardiovascular No chest pain/pressure 02/06/2017 Cardiovascular No fatigue 02/06/2017 Respiratory cough 2016 Respiratory chest congestion 02/06/2017 Psychiatric No anxiety 1 04/08/2016 Psychiatric No depression 02/06/2017 Dermatologic No rash 09/2016 Dermatologic No sores Gastrointestinal No abdominal pain 02/06/2017 Gastrointestinal No diarrhea 02/06/2017 Musculoskeletal No stiffness 02/06/2017 Musculoskeletal No arthralgia(s) 02/06/2017 Constitutional No chills 02/06/2017 Constitutional No diaphoresis 02/06/2017 Constitutional No fever 02/06/2017 Eyes No blindness 2016 Ears/Nose/Throat/Neck nasal allergies 02/06/2017 Ears/Nose/Throat/Neck nasal discharge 02/06/2017 Ears/Nose/Throat/Neck postnasal drip 02/06/2017 Cardiovascular No dyspnea 02/06/2017 Respiratory No dyspnea 1 04/08/2016 Respiratory wheezing 09/2016 Gastrointestinal No nausea 02/06/2017 Gastrointestinal No vomiting 02/06/2017 Neurologic No alteration of consciousness 02/06/2017 Neurologic No mental status change 02/06/2017 Constitutional recent illness 11/06/2016 Constitutional No chills 11/06/2016 Constitutional No diaphoresis 11/06/2016 Constitutional No fever 11/06/2016 Eyes No eye erythema 09/2016 Ears/Nose/Throat/Neck nasal allergies 11/06/2016 Ears/Nose/Throat/Neck nasal discharge 11/06/2016 Ears/Nose/Throat/Neck postnasal drip 11/06/2016 Cardiovascular No chest pain/pressure 11/06/2016 Cardiovascular No dyspnea 11/06/2016 Respiratory chest congestion 11/06/2016 Respiratory cough 2016 Respiratory No dyspnea 0 11/06/2016 Gastrointestinal No abdominal pain 11/06/2016 Gastrointestinal No nausea 11/06/2016 Gastrointestinal No vomiting 11/06/2016 Dermatologic No rash 09/2016 Neurologic No alteration of consciousness 11/06/2016 Neurologic No mental status change 11/06/2016 Respiratory wheezing 09/2016 Constitutional recent illness 09/27/2016 Constitutional No chills 09/27/2016 Constitutional No diaphoresis 09/27/2016 Constitutional No fever 09/27/2016 Eyes No eye erythema Ears/Nose/Throat/Neck nasal allergies 09/27/2016 Ears/Nose/Throat/Neck nasal discharge 09/27/2016 Ears/Nose/Throat/Neck postnasal drip 09/27/2016 Ears/Nose/Throat/Neck sore throat 09/27/2016 Cardiovascular No chest pain/pressure 09/27/2016 Cardiovascular No dyspnea 09/27/2016 Respiratory cough 2016 Respiratory No dyspnea 0 09/27/2016 Respiratory chest congestion 09/27/2016 Gastrointestinal No abdominal pain 09/27/2016 Gastrointestinal No constipation 09/27/2016 Gastrointestinal diarrhea 09/27/2016 Gastrointestinal No vomiting 09/27/2016 Gastrointestinal No nausea 09/27/2016 Neurologic No alteration of consciousness 09/27/2016 Neurologic No mental status change 09/27/2016 Dermatologic No rash Constitutional No anorexia 03/21/2016 Constitutional No night sweats 03/21/2016 Constitutional No chills 03/21/2016 Constitutional No diaphoresis 03/21/2016 Constitutional No insomnia 03/21/2016 Constitutional No malaise 03/21/2016 Eyes No eye discharge Eyes No eye erythema Ears/Nose/Throat/Neck No headache 03/21/2016 Ears/Nose/Throat/Neck No nasal allergies 03/21/2016 Ears/Nose/Throat/Neck No nasal discharge 03/21/2016 Ears/Nose/Throat/Neck No sore throat 03/21/2016 Ears/Nose/Throat/Neck No otalgia 03/21/2016 Ears/Nose/Throat/Neck No sinus congestion 03/21/2016 Cardiovascular arrhythmia 03/21/2016 Cardiovascular No chest pain/pressure 03/21/2016 Cardiovascular fatigue 1 05/22/2015 Respiratory No productive sputum 03/21/2016 Respiratory dyspnea on exertion 03/21/2016 Gastrointestinal No abdominal pain 03/21/2016 Gastrointestinal No constipation 03/21/2016 Gastrointestinal No diarrhea 03/21/2016 Genitourinary/Nephrology No dysuria 03/21/2016 Genitourinary/Nephrology No nocturia 03/21/2016 Genitourinary/Nephrology No urinary incontinence 03/21/2016 Musculoskeletal No stiffness 03/21/2016 Musculoskeletal No swelling 03/21/2016 Musculoskeletal No muscle weakness 03/21/2016 Musculoskeletal No myalgias 03/21/2016 Dermatologic No rash Dermatologic sores 03/21 Neurologic No alteration of consciousness 03/21/2016 Psychiatric No anxiety 1 05/22/2015 Psychiatric No depression 03/21/2016 Gastrointestinal abdominal pain [...] No productive sputum 02/01/2016 Respiratory No cough 04/2015 Ears/Nose/Throat/Neck No dizziness 02/01/2016 Ears/Nose/Throat/Neck No headache 02/01/2016 Cardiovascular No chest pain/pressure 02/01/2016 Eyes No eye discharge Eyes No eye erythema 04/2015 Genitourinary/Nephrology No dysuria 02/01/2016 Musculoskeletal No joint complaint 02/01/2016 Dermatologic No rash 04/2015 Neurologic No alteration of consciousness 02/01/2016 Constitutional [...] Cardiovascular No chest pain/pressure 11/23/2015 Cardiovascular fatigue 0 11/23/2015 Respiratory No productive sputum 11/23/2015 Respiratory dyspnea on exertion 11/23/2015 Gastrointestinal No abdominal pain 11/23/2015 Gastrointestinal No constipation 11/23/2015 Gastrointestinal No diarrhea 11/23/2015 Musculoskeletal No stiffness 11/23/2015 Musculoskeletal No swelling 11/23/2015 Musculoskeletal No muscle weakness 11/23/2015 Musculoskeletal No myalgias 11/23/2015 Dermatologic No rash Dermatologic sores 11/22 Neurologic No alteration of consciousness 11/23/2015 Psychiatric No anxiety 0 11/23/2015 Psychiatric No depression 11/23/2015 Constitutional No recent illness 10/14/2015 Constitutional No anorexia 10/14/2015 Constitutional No night sweats 10/14/2015 Constitutional No chills 10/14/2015 Constitutional No diaphoresis 10/14/2015 Constitutional No insomnia 10/14/2015 Constitutional No malaise 10/14/2015 Eyes No eye discharge Eyes No eye erythema Ears/Nose/Throat/Neck No headache 10/14/2015 Ears/Nose/Throat/Neck No nasal allergies 10/14/2015 Ears/Nose/Throat/Neck No nasal discharge 10/14/2015 Ears/Nose/Throat/Neck No sore throat 10/14/2015 Ears/Nose/Throat/Neck No otalgia 10/14/2015 Ears/Nose/Throat/Neck No sinus congestion 10/14/2015 Cardiovascular No chest pain/pressure 10/14/2015 Cardiovascular fatigue 0 10/14/2015 Respiratory No productive sputum 10/14/2015 Gastrointestinal No abdominal pain 10/14/2015 Gastrointestinal No constipation 10/14/2015 Gastrointestinal No diarrhea 10/14/2015 Genitourinary/Nephrology No dysuria 10/14/2015 Genitourinary/Nephrology No nocturia 10/14/2015 Genitourinary/Nephrology No urinary incontinence 10/14/2015 Musculoskeletal No stiffness 10/14/2015 Musculoskeletal No swelling 10/14/2015 Musculoskeletal No muscle weakness 10/14/2015 Musculoskeletal No myalgias 10/14/2015 Dermatologic No rash Dermatologic sores 10/13 Neurologic No alteration of consciousness 10/14/2015 Psychiatric No anxiety 0 10/14/2015 Psychiatric No depression 10/14/2015 Constitutional No [...] No malaise 07/06/2015 Eyes No eye discharge Eyes No eye erythema 08/2015 Ears/Nose/Throat/Neck No headache 07/06/2015 Ears/Nose/Throat/Neck No nasal allergies 07/06/2015 Ears/Nose/Throat/Neck No nasal discharge 07/06/2015 Ears/Nose/Throat/Neck No otalgia 07/06/2015 Ears/Nose/Throat/Neck No sinus congestion 07/06/2015 Ears/Nose/Throat/Neck No sore throat 07/06/2015 Cardiovascular arrhythmia 07/06/2015 Cardiovascular No chest pain/pressure 07/06/2015 Cardiovascular fatigue 0 07/06/2015 Respiratory No productive sputum 07/06/2015 Respiratory dyspnea on exertion 07/06/2015 Gastrointestinal No abdominal pain 07/06/2015 Gastrointestinal No constipation 07/06/2015 Gastrointestinal No diarrhea 07/06/2015 Dermatologic No rash 08/2015 Neurologic No alteration of consciousness 07/06/2015 Musculoskeletal No stiffness 07/06/2015 Musculoskeletal No swelling 07/06/2015 Musculoskeletal No muscle weakness 07/06/2015 Musculoskeletal No myalgias 07/06/2015 Genitourinary/Nephrology No dysuria 07/06/2015 Genitourinary/Nephrology No nocturia 07/06/2015 Genitourinary/Nephrology No urinary incontinence 07/06/2015 Psychiatric No anxiety 0 07/06/2015 Psychiatric No depression 07/06/2015 Dermatologic sores 07/05 Constitutional No anorexia 03/29/2015 Constitutional No night sweats 03/29/2015 Constitutional No chills 03/29/2015 Constitutional No diaphoresis 03/29/2015 Constitutional No insomnia 03/29/2015 Constitutional No malaise 03/29/2015 Eyes No eye discharge Eyes No eye erythema Ears/Nose/Throat/Neck No headache 03/29/2015 Ears/Nose/Throat/Neck No nasal allergies 03/29/2015 Ears/Nose/Throat/Neck No nasal discharge 03/29/2015 Ears/Nose/Throat/Neck No otalgia 03/29/2015 Ears/Nose/Throat/Neck No sinus congestion 03/29/2015 Ears/Nose/Throat/Neck No sore throat 03/29/2015 Cardiovascular No chest pain/pressure 03/29/2015 Respiratory No productive sputum 03/29/2015 Respiratory cough 2014 Gastrointestinal No abdominal pain 03/29/2015 Gastrointestinal No constipation 03/29/2015 Gastrointestinal No diarrhea 03/29/2015 Dermatologic No rash Neurologic No alteration of consciousness 03/29/2015 Cardiovascular fatigue 1 05/30/2014 Cardiovascular arrhythmia 03/29/2015 Respiratory dyspnea on exertion 03/29/2015 Constitutional No recent illness 03/08/2015 Constitutional No chills 03/08/2015 Constitutional No fatigue 03/08/2015 Constitutional No fever 03/08/2015 Constitutional No insomnia 03/08/2015 Constitutional No malaise 03/08/2015 Eyes No blindness 2014 Eyes No vision change Ears/Nose/Throat/Neck No dental pain 03/08/2015 Ears/Nose/Throat/Neck No [...] No chest tightness 03/08/2015 Respiratory No cough 09/2014 Respiratory No dyspnea 1 05/09/2014 Respiratory No pedal edema 03/08/2015 Gastrointestinal No abdominal pain 03/08/2015 Gastrointestinal No constipation 03/08/2015 Gastrointestinal No diarrhea 03/08/2015 Gastrointestinal No gastroesophageal reflu x 03/08/2015 Gastrointestinal No nausea 03/08/2015 Gastrointestinal No vomiting 03/08/2015 Genitourinary/Nephrology No dysuria 03/08/2015 Genitourinary/Nephrology No nocturia 03/08/2015 Genitourinary/Nephrology No urinary incontinence 03/08/2015 Musculoskeletal No stiffness 03/08/2015 Musculoskeletal No swelling 03/08/2015 Musculoskeletal No muscle weakness 03/08/2015 Musculoskeletal No myalgias 03/08/2015 Dermatologic No rash 09/2014 Dermatologic No sores Dermatologic No scar 09/2014 Neurologic No dizziness 03/08/2015 Neurologic No headache 1 05/09/2014 Neurologic No neck pain 03/08/2015 Neurologic No syncope Psychiatric No anxiety 1 05/09/2014 Psychiatric No depression 03/08/2015 Constitutional recent illness 02/02/2015 Constitutional No anorexia 02/02/2015 Constitutional No night sweats 02/02/2015 Constitutional No chills 02/02/2015 Constitutional No diaphoresis 02/02/2015 Constitutional No fatigue 02/02/2015 Constitutional No fever 02/02/2015 Constitutional No insomnia 02/02/2015 Constitutional No malaise 02/02/2015 Constitutional No weight loss 02/02/2015 Constitutional No weight gain 02/02/2015 Eyes No eye discharge Eyes No eye erythema 05/2014 Ears/Nose/Throat/Neck No dizziness 02/02/2015 Ears/Nose/Throat/Neck No headache 02/02/2015 Ears/Nose/Throat/Neck nasal allergies 02/02/2015 Ears/Nose/Throat/Neck nasal discharge 02/02/2015 Ears/Nose/Throat/Neck No otalgia 02/02/2015 Ears/Nose/Throat/Neck sinus congestion 02/02/2015 Ears/Nose/Throat/Neck No sore throat 02/02/2015 Cardiovascular No chest pain/pressure 02/02/2015 Cardiovascular No dyspnea 02/02/2015 Respiratory No productive sputum 02/02/2015 Respiratory No chest congestion 02/02/2015 Respiratory cough 2014 Gastrointestinal No abdominal pain 02/02/2015 Gastrointestinal No constipation 02/02/2015 Gastrointestinal No diarrhea 02/02/2015 Genitourinary/Nephrology No dysuria 02/02/2015 Musculoskeletal No joint complaint 02/02/2015 Dermatologic No rash 05/2014 Neurologic No alteration of consciousness 02/02/2015 Constitutional No recent illness 09/22/2014 Constitutional No chills 09/22/2014 Constitutional No fatigue 09/22/2014 Constitutional No fever 09/22/2014 Constitutional No insomnia 09/22/2014 Constitutional No malaise 09/22/2014 Eyes No blindness 2014 Eyes No vision change Ears/Nose/Throat/Neck No dental pain 09/22/2014 Ears/Nose/Throat/Neck No [...] No chest tightness 09/22/2014 Respiratory No cough Respiratory No dyspnea 0 09/22/2014 Respiratory No pedal edema 09/22/2014 Gastrointestinal No abdominal pain 09/22/2014 Gastrointestinal No constipation 09/22/2014 Gastrointestinal No diarrhea 09/22/2014 Gastrointestinal No gastroesophageal reflu x 09/22/2014 Gastrointestinal No nausea 09/22/2014 Gastrointestinal No vomiting 09/22/2014 Genitourinary/Nephrology No dysuria 09/22/2014 Genitourinary/Nephrology No nocturia 09/22/2014 Genitourinary/Nephrology No urinary incontinence 09/22/2014 Musculoskeletal No stiffness 09/22/2014 Musculoskeletal No swelling 09/22/2014 Musculoskeletal No muscle weakness 09/22/2014 Musculoskeletal No myalgias 09/22/2014 Dermatologic No rash Dermatologic No sores Dermatologic No scar Neurologic No dizziness 09/22/2014 Neurologic No headache 0 09/22/2014 Neurologic No neck pain 09/22/2014 Neurologic No syncope Psychiatric No anxiety 0 09/22/2014 Psychiatric No depression 09/22/2014 Physical Exam Exam Name System Name It em Name Status Result Effective Dates Notes Full Exam - General 1994 Constitutional general appearance Development: well developed 12/10/2018 None Full Exam - General 1994 Constitutional general appearance Development: appears stated age 0912/10/2018 None Full Exam - General 1994 Constitutional general appearance Hygiene/Attention to Grooming: good hygiene 12/10/2018 None Full Exam - General 1994 Eyes conjunctiva/eyelids Overall: conjunctiva clear 12/10/2018 None Full Exam - General 1994 Eyes conjunctiva/eyelids Overall: cornea clear 12/10/2018 None Full Exam - General 1994 Eyes conjunctiva/eyelids Overall: eyelids normal 12/10/2018 None Full Exam - General 1994 Eyes pupils and irises Overall: pupils equal, round, reactive to light and accomodation 12/10/2018 None Full Exam - General 1994 Ears/Nose/Throat otoscopic exam Overall: external auditory canals clear 12/10/2018 None Full Exam - General 1994 Ears/Nose/Throat otoscopic exam Overall: tympanic membranes clear 12/10/2018 None Full Exam - Cardiology Respiratory auscultation Overall: breath sounds clear bilaterally 12/10/2018 None Full Exam - General 1994 Respiratory respiratory effort/rhythm Overall: no retractions 12/10/2018 None Full Exam - General 1994 Respiratory respiratory effort/rhythm Overall: normal rate 12/10/2018 None Full Exam - General 1994 Cardiovascular extremities Overall: no clubbing 12/10/2018 None Full Exam - General 1994 Cardiovascular auscultation of heart Rate: regular rate 12/10/2018 None Full Exam - General 1994 Cardiovascular auscultation of heart Rhythm: irregularly irregular rhythm 12/10/2018 None Full Exam - General 1994 Abdomen abdominal exam Overall: no tenderness 12/10/2018 None Full Exam - General 1994 Abdomen abdominal exam Overall: normal bowel sounds 12/10/2018 None Full Exam - General 1994 Lymphatic neck nodes Overall: anterior cervical chain benign 12/10/2018 None Full Exam - General 1994 Lymphatic neck nodes Overall: posterior cervical chain benign 12/10/2018 None Full Exam - General 1994 Musculoskeletal spine, ribs and pelvis Overall: good posture 12/10/2018 None Full Exam - General 1994 Musculoskeletal head and neck Overall: head atraumatic 12/10/2018 None Full Exam - General 1994 Musculoskeletal head and neck Overall: cervical spine benign 12/10/2018 None Full Exam - General 1994 Neurologic cranial nerves Overall: crainial nerves 2 - 12 grossly intact 12/10/2018 None Full Exam - General 1994 Psychiatric orientation/consciousness Overall: oriented to person, place and time 12/10/2018 None Full Exam - General 1994 Psychiatric mood and affect Overall: normal mood and affect 12/10/2018 None Full Exam - Cardiology Constitutional general appearance Assistive Device: cane 12/10/2018 None Full Exam - General 1994 Constitutional general appearance Development: well developed 11/22/2018 None Full Exam - General 1994 Constitutional general appearance Development: appears stated age 0811/22/2018 None Full Exam - General 1994 Constitutional general appearance Hygiene/Attention to Grooming: good hygiene 11/22/2018 None Full Exam - General 1994 Eyes conjunctiva/eyelids Overall: conjunctiva clear 11/22/2018 None Full Exam - General 1994 Eyes conjunctiva/eyelids Overall: cornea clear 11/22/2018 None Full Exam - General 1994 Eyes conjunctiva/eyelids Overall: eyelids normal 11/22/2018 None Full Exam - General 1994 Eyes pupils and irises Overall: pupils equal, round, reactive to light and accomodation 11/22/2018 None Full Exam - General 1994 Ears/Nose/Throat otoscopic exam Overall: external auditory canals clear 11/22/2018 None Full Exam - General 1994 Ears/Nose/Throat otoscopic exam Overall: tympanic membranes clear 11/22/2018 None Full Exam - General 1994 Respiratory respiratory effort/rhythm Overall: no retractions 11/22/2018 None Full Exam - General 1994 Respiratory respiratory effort/rhythm Overall: normal rate 11/22/2018 None Full Exam - General 1994 Cardiovascular extremities Overall: no clubbing 11/22/2018 None Full Exam - General 1994 Cardiovascular auscultation of heart Rate: regular rate 11/22/2018 None Full Exam - General 1994 Cardiovascular auscultation of heart Rhythm: irregularly irregular rhythm 11/22/2018 None Full Exam - General 1994 Abdomen abdominal exam Overall: no tenderness 11/22/2018 None Full Exam - General 1994 Abdomen abdominal exam Overall: normal bowel sounds 11/22/2018 None Full Exam - General 1994 Lymphatic neck nodes Overall: anterior cervical chain benign 11/22/2018 None Full Exam - General 1994 Lymphatic neck nodes Overall: posterior cervical chain benign 11/22/2018 None Full Exam - General 1994 Musculoskeletal spine, ribs and pelvis Overall: good posture 11/22/2018 None Full Exam - General 1994 Musculoskeletal head and neck Overall: head atraumatic 11/22/2018 None Full Exam - General 1994 Musculoskeletal head and neck Overall: cervical spine benign 11/22/2018 None Full Exam - General 1994 Neurologic cranial nerves Overall: crainial nerves 2 - 12 grossly intact 11/22/2018 None Full Exam - General 1994 Psychiatric orientation/consciousness Overall: oriented to person, place and time 11/22/2018 None Full Exam - General 1994 Psychiatric mood and affect Overall: normal mood and affect 11/22/2018 None Full Exam - Cardiology Constitutional general appearance Assistive Device: wheelchair 11/22/2018 None Full Exam - Cardiology Respiratory auscultation Overall: breath sounds clear bilaterally 11/22/2018 None Full Exam - General 1994 Constitutional general appearance Development: well developed 11/01/2018 None Full Exam - General 1994 Constitutional general appearance Development: appears stated age 0811/01/2018 None Full Exam - General 1994 Constitutional general appearance Hygiene/Attention to Grooming: good hygiene 11/01/2018 None Full Exam - General 1994 Eyes conjunctiva/eyelids Overall: conjunctiva clear 11/01/2018 None Full Exam - General 1994 Eyes conjunctiva/eyelids Overall: cornea clear 11/01/2018 None Full Exam - General 1994 Eyes conjunctiva/eyelids Overall: eyelids normal 11/01/2018 None Full Exam - General 1994 Eyes pupils and irises Overall: pupils equal, round, reactive to light and accomodation 11/01/2018 None Full Exam - General 1994 Ears/Nose/Throat otoscopic exam Overall: external auditory canals clear 11/01/2018 None Full Exam - General 1994 Ears/Nose/Throat otoscopic exam Overall: tympanic membranes clear 11/01/2018 None Full Exam - General 1994 Respiratory respiratory effort/rhythm Overall: no retractions 11/01/2018 None Full Exam - General 1994 Respiratory respiratory effort/rhythm Overall: normal rate 11/01/2018 None Full Exam - General 1994 Cardiovascular extremities Overall: no clubbing 11/01/2018 None Full Exam - General 1994 Cardiovascular auscultation of heart Rate: regular rate 11/01/2018 None Full Exam - General 1994 Cardiovascular auscultation of heart Rhythm: irregularly irregular rhythm 11/01/2018 None Full Exam - General 1994 Abdomen abdominal exam Overall: no tenderness 11/01/2018 None Full Exam - General 1994 Abdomen abdominal exam Overall: normal bowel sounds 11/01/2018 None Full Exam - General 1994 Lymphatic neck nodes Overall: anterior cervical chain benign 11/01/2018 None Full Exam - General 1994 Lymphatic neck nodes Overall: posterior cervical chain benign 11/01/2018 None Full Exam - General 1994 Musculoskeletal spine, ribs and pelvis Overall: good posture 11/01/2018 None Full Exam - General 1994 Musculoskeletal head and neck Overall: head atraumatic 11/01/2018 None Full Exam - General 1994 Musculoskeletal head and neck Overall: cervical spine benign 11/01/2018 None Full Exam - General 1994 Integument inspection of skin Location: ear 11/01/2018 on left ear tragus papula r lesion and on right lobe of ear anteriorly irrirated actinic keratosis Full Exam - General 1994 Integument inspection of skin Location: face 11/01/2018 right oriental orthodox, forehead, l eft oriental orthodox - irrirated actinic keratosis Full Exam - General 1994 Neurologic cranial nerves Overall: crainial nerves 2 - 12 grossly intact 11/01/2018 None Full Exam - General 1994 Psychiatric orientation/consciousness Overall: oriented to person, place and time 11/01/2018 None Full Exam - General 1994 Psychiatric mood and affect Overall: normal mood and affect 11/01/2018 None Full Exam - Cardiology Constitutional general appearance Assistive Device: wheelchair 11/01/2018 None Full Exam - Cardiology Respiratory auscultation Diffuse: diminished 11/01/2018 None Full Exam - ENT Constitutional general [...] Ears/Nose/Throat otoscopic exam Left tympanic membrane: air-fluid le hermann 07/08/2018 None Full Exam - ENT Ears/Nose/Throat [...] - ENT Respiratory inspection Overall: normal rate 10/2018 None Full Exam - ENT Respiratory auscultation Overall: breath sounds clear bilater ally 07/08/2018 None Full Exam - ENT Lymphatic [...] Neurologic orientation Overall: oriented to person, place a nd time 07/08/2018 None Full Exam - ENT Cardiovascular auscultation of heart Rate: normal rate 07/08/2018 None Full Exam - ENT Cardiovascular auscultation of heart Rhythm: irregularly irregular rhythm 07/08/2018 None Full Exam - ENT Eyes ocu lar motility Overall: extraocular movement intact 07/08/2018 eye [...] Location: ear 04/23/2018 on left ear tragus papula r lesion and on right lobe of ear anteriorly irrirated actinic keratosis Full Exam - General 1994 Integument inspection of skin Location: face 04/23/2018 right oriental orthodox, forehead, l eft oriental orthodox - irrirated actinic keratosis Full Exam - [...] Ears/Nose/Throat otoscopic exam Left tympanic membrane: air-fluid le hermann 02/28/2018 None Full Exam - ENT Ears/Nose/Throat [...] - ENT Respiratory inspection Overall: normal rate None Full Exam - ENT Respiratory auscultation Overall: breath sounds clear bilater ally 02/28/2018 None Full Exam - ENT Cardiovascular [...] Neurologic orientation Overall: oriented to person, place a nd time 02/28/2018 None Full Exam - ENT [...] Ears/Nose/Throat otoscopic exam Left tympanic membrane: air-fluid le hermann 02/19/2018 None Full Exam - ENT Ears/Nose/Throat [...] - ENT Respiratory inspection Overall: normal rate None Full Exam - ENT Respiratory auscultation Overall: breath sounds clear bilater ally 02/19/2018 None Full Exam - ENT Lymphatic [...] Neurologic orientation Overall: oriented to person, place a nd time 02/19/2018 None Full Exam - ENT [...] Ears/Nose/Throat otoscopic exam Left tympanic membrane: air-fluid le hermann 11/09/2017 None Full Exam - ENT Ears/Nose/Throat [...] - ENT Respiratory inspection Overall: normal rate 12/2017 None Full Exam - ENT Respiratory auscultation Overall: breath sounds clear bilater ally 11/09/2017 None Full Exam - ENT Cardiovascular [...] Neurologic orientation Overall: oriented to person, place a nd time 11/09/2017 None Full Exam - ENT [...] Location: ear 10/22/2017 on left ear tragus papula r lesion and on right lobe of ear anteriorly irrirated actinic keratosis Full Exam - General 1994 Integument inspection of skin Location: face 10/22/2017 right oriental orthodox, forehead, l eft oriental orthodox - irrirated actinic keratosis Full Exam - [...] Ears/Nose/Throat otoscopic exam Left tympanic membrane: air-fluid le hermann 03/29/2017 None Full Exam - ENT Ears/Nose/Throat [...] - ENT Respiratory inspection Overall: normal rate None Full Exam - ENT Respiratory auscultation Overall: breath sounds clear bilater ally 03/29/2017 None Full Exam - ENT Cardiovascular [...] Neurologic orientation Overall: oriented to person, place a nd time 03/29/2017 None Full Exam - ENT [...] Ears/Nose/Throat otoscopic exam Left external auditory canal: partia l cerumen occlusion 11/06/2016 None Full Exam - ENT Ears/Nose/Throat otoscopic exam Right external auditory canal: parti al cerumen occlusion 11/06/2016 None Full Exam - ENT Ears/Nose/Throat lips/teeth/gingiva Overall: benign lips 11/06/2016 None Full Exam - ENT Ears/Nose/Throat oropharynx Posterior Pharynx: clear post nasal drainage 11/06/2016 None Full Exam - ENT Ears/Nose/Throat oropharynx Posterior Pharynx: erythema 11/06/2016 mild Full Exam - ENT Respiratory inspection Overall: no retractions 11/06/2016 None Full Exam - ENT Respiratory inspection Overall: normal rate 09/2016 None Full Exam - ENT Cardiovascular auscultation [...] Neurologic orientation Overall: oriented to person, place a nd time 11/06/2016 None Full Exam - ENT Neurologic cranial nerves/coordination Overall: cranial nerves 2-12 grossly intact 11/06/2016 None Full Exam - ENT Respiratory auscultation Diffuse: diminished 09/2016 None Full Exam - ENT Constitutional general appearance Overall: well nourished 09/27/2016 None Full Exam - ENT Constitutional general appearance Overall: well developed 09/27/2016 None Full Exam - ENT Constitutional general appearance Overall: in no acute distress 09/27/2016 None Full Exam - ENT Ears/Nose/Throat otoscopic exam Left external auditory canal: partia l cerumen occlusion 09/27/2016 None Full Exam - ENT Ears/Nose/Throat otoscopic exam Right external auditory canal: parti al cerumen occlusion 09/27/2016 None Full Exam - ENT Ears/Nose/Throat otoscopic exam Overall: tympanic membranes normal 09/27/2016 None Full Exam - ENT Ears/Nose/Throat lips/teeth/gingiva Overall: benign lips 09/27/2016 None Full Exam - ENT Ears/Nose/Throat oropharynx Posterior Pharynx: clear post nasal drainage 09/27/2016 None Full Exam - ENT Ears/Nose/Throat oropharynx Posterior Pharynx: erythema 09/27/2016 mild Full Exam - ENT Respiratory inspection Overall: normal rate None Full Exam - ENT Respiratory inspection Overall: no retractions 09/27/2016 None Full Exam - ENT Respiratory auscultation Left lower lung field: expiratory wh eezes 09/27/2016 None Full Exam - ENT Respiratory [...] Neurologic orientation Overall: oriented to person, place a nd time 09/27/2016 None Full Exam - ENT [...] Location: ear 03/21/2016 on left ear tragus papula r lesion and on right lobe of ear anteriorly irrirated actinic keratosis Full Exam - General 1994 Integument inspection of skin Location: face 03/21/2016 right oriental orthodox, forehead, l eft oriental orthodox - irrirated actinic keratosis Full Exam - [...] inspection of skin Location: face 11/23/2015 right oriental orthodox, left oriental orthodox - irrirated actinic keratosis Full Exam - [...] Location: ear 10/14/2015 on left ear tragus papula r lesion Full Exam - General 1994 Integument inspection of skin Location: face 10/14/2015 scalp papular lesion-irri tated Full Exam - General 1994 Neurologic cranial [...] Location: ear 07/06/2015 on left ear tragus papula r lesion and on right lobe of ear anteriorly irrirated actinic keratosis Full Exam - General 1994 Integument inspection of skin Location: face 07/06/2015 right oriental orthodox, forehead, l eft oriental orthodox - irrirated actinic keratosis Full Exam - [...] scalp Procedures Procedure Codes Date TRIAMCINOLONE ACET I [place] NOS CPT-4: J3301 07/08/2018 THER/PROPH/DIAG INJ SC/IM CPT-4: 85019 07/08/2018 THER/PROPH/DIAG INJ SC/IM CPT-4: 86107 02/28/2018 ROCEPHIN, PER 250 MG CPT-4: J0696 02/28/2018 THER/PROPH/DIAG INJ SC/IM CPT-4: 33546 02/26/2018 TRIAMCINOLONE ACET I [place] NOS CPT-4: J3301 02/26/2018 PPPS, SUBSEQ VISIT CPT- 4: G0439 2017 TRIAMCINOLONE ACET I [place] NOS CPT-4: J3301 06/29/2017 THER/PROPH/DIAG INJ SC/IM CPT-4: 89597 02/06/2017 ROCEPHIN, PER 250 MG CPT-4: J0696 02/06/2017 ROCEPHIN, PER 250 MG CPT-4: J0696 09/27/2016 TRIAMCINOLONE ACET I [place] NOS CPT-4: J3301 09/27/2016 THER/PROPH/DIAG INJ SC/IM CPT-4: 61357 09/27/2016 DESTRUCT PREMALG LESION CPT-4: 44300 10/14/2015 DESTRUCT PREMALG LESION CPT-4: 88339 07/20/2015 DESTRUCT PREMALG LESION CPT-4: 93417 07/06/2015 DESTRUCT PREMALG LES 2-14 CPT-4: 43696 07/06/2015 TRIAMCINOLONE ACET I [place] NOS CPT-4: J3301 02/02/2015 Vital Signs Date Vital 12/10/2018 Blood Pressure 1: 112/68 Code: 8480-6 BMI: 27.2 Code: 22548-1 Heart Rate 1: 76 bpm Height: 5'8" SpO2: 94% Weight: 179 lbs 11/22/2018 Blood Pressure 1: 110/58 Code: 8480-6 Heart Rate 1: 74 bpm Height: 5'8" SpO2: 98% Weight: 11/01/2018 Blood Pressure 1: 120/70 Code: 8480-6 Heart Rate 1: 72 bpm Height: SpO2: 98% Weight: 07/08/2018 Blood Pressure 1: 134/64 Code: 8480-6 BMI: 30.6 Code: 39447-2 Heart Rate 1: 79 bpm Height: 5'8" SpO2: 98% Weight: 201 lbs 06/04/2018 Blood Pressure 1: 130/62 Code: 8480-6 BMI: 30.6 Code: 43334-8 Heart Rate 1: 88 bpm Height: 5'8" SpO2: 97% Weight: 201 lbs 04/23/2018 Blood Pressure 1: 130/72 Code: 8480-6 BMI: 30.1 Code: 12919-3 Heart Rate 1: 74 bpm Height: 5'8" SpO2: 97% Weight: 198 lbs 02/28/2018 Blood Pressure 1: 124/72 Code: 8480-6 BMI: 30.0 Code: 92554-9 Heart Rate 1: 69 bpm Height: 5'8" SpO2: 97% Temperature: 36.6 (C ) / 97.8 (F) Weight: 197 lbs 02/19/2018 Blood Pressure 1: 128/76 Code: 8480-6 BMI: 30.0 Code: 94145-5 Heart Rate 1: 66 bpm Height: 5'8" SpO2: 97% Weight: 197 lbs 11/09/2017 Blood Pressure 1: 130/74 Code: 8480-6 BMI: 29.3 Code: 01204-9 Heart Rate 1: 81 bpm Height: 5'8" SpO2: 98% Temperature: 36.6 (C ) / 97.9 (F) Weight: 193 lbs 10/22/2017 Blood Pressure 1: 132/82 Code: 8480-6 BMI: 29.0 Code: 86596-2 Heart Rate 1: 80 bpm Height: 5'8" SpO2: 98% Weight: 191 lbs 2017 Blood Pressure 1: 142/68 Code: 8480-6 BMI: 28.7 Code: 27680-9 Heart Rate 1: 62 bpm Height: 5'8" SpO2: 98% Waist Measure (cm): 102 cm Weight: 189 lbs 07/23/2017 Blood Pressure 1: 138/84 Code: 8480-6 BMI: 29.0 Code: 06993-9 Heart Rate 1: 69 bpm Height: 5'8" SpO2: 98% Weight: 191 lbs 07/09/2017 Blood Pressure 1: 120/82 Code: 8480-6 BMI: 29.2 Code: 10088-3 Heart Rate 1: 80 bpm Height: 5'8" SpO2: 98% Weight: 192 lbs 06/29/2017 Blood Pressure 1: 140/82 Code: 8480-6 BMI: 29.5 Code: 90089-5 Heart Rate 1: 83 bpm Height: 5'8" SpO2: 98% Weight: 194 lbs 04/23/2017 Blood Pressure 1: 132/74 Code: 8480-6 BMI: 28.4 Code: 86598-8 Heart Rate 1: 78 bpm Height: 5'8" SpO2: 97% Weight: 187 lbs 04/10/2017 Blood Pressure 1: 126/68 Code: 8480-6 BMI: 29.5 Code: 50695-9 Heart Rate 1: 68 bpm Height: 5'8" SpO2: 92% Temperature: 37.5 (C ) / 99.5 (F) Weight: 194 lbs 03/29/2017 Blood Pressure 1: 116/76 Code: 8480-6 BMI: 29.6 Code: 58734-4 Heart Rate 1: 61 bpm Height: 5'8" SpO2: 98% Weight: 195 lbs 02/06/2017 Blood Pressure 1: 130/74 Code: 8480-6 BMI: 30.4 Code: 31511-6 Heart Rate 1: 71 bpm Height: 5'8" SpO2: 98% Weight: 200 lbs 11/06/2016 Blood Pressure 1: 140/74 Code: 8480-6 BMI: 29.5 Code: 52918-0 Heart Rate 1: 76 bpm Height: 5'8" SpO2: 96% Weight: 194 lbs 09/27/2016 Blood Pressure 1: 138/78 Code: 8480-6 BMI: 29.6 Code: 91935-8 Heart Rate 1: 68 bpm Height: 5'8" SpO2: 97% Weight: 195 lbs 03/21/2016 Blood Pressure 1: 148/82 Code: 8480-6 BMI: 30.6 Code: 28048-7 Heart Rate 1: 67 bpm Height: 5'8" SpO2: 98% Weight: 201 lbs 02/01/2016 Blood Pressure 1: 128/86 Code: 8480-6 BMI: 30.3 Code: 18867-0 Heart Rate 1: 84 bpm Height: 5'8" SpO2: 96% Weight: 199 lbs 11/23/2015 Blood Pressure 1: 132/76 Code: 8480-6 BMI: 30.4 Code: 97559-5 Heart Rate 1: 81 bpm Height: 5'8" SpO2: 98% Weight: 200 lbs 10/14/2015 Blood Pressure 1: 120/80 Code: 8480-6 BMI: 30.4 Code: 08690-0 Heart Rate 1: 87 bpm Height: 5'8" SpO2: 97% Weight: 200 lbs 07/20/2015 Blood Pressure 1: 132/84 Code: 8480-6 BMI: 31.0 Code: 35270-9 Heart Rate 1: 78 bpm Height: 5'8" SpO2: 96% Weight: 204 lbs 07/06/2015 Blood Pressure 1: 130/78 Code: 8480-6 BMI: 31.0 Code: 22537-2 Heart Rate 1: 80 bpm Height: 5'8" SpO2: 98% Weight: 204 lbs 03/29/2015 Blood Pressure 1: 132/82 Code: 8480-6 BMI: 29.6 Code: 33375-6 Heart Rate 1: 76 bpm Height: 5'8" SpO2: 96% Weight: 195 lbs 03/08/2015 Blood Pressure 1: 126/84 Code: 8480-6 BMI: 30.2 Code: 67661-6 Heart Rate 1: 101 bpm Height: 5'8" SpO2: 98% Weight: 198 lbs 8 oz 02/02/2015 Blood Pressure 1: 132/86 Code: 8480-6 Heart Rate 1: 86 bpm SpO2: 98% Temperature: 36.6 (C ) / 97.8 (F) Weight: 198 lbs 09/22/2014 Blood Pressure 1: 128/80 Code: 8480-6 BMI: 29.3 Code: 89005-6 Heart Rate 1: 85 bpm Height: 5'8" SpO2: 98% Weight: 193 lbs Functional Status No Functional Status data History of Present Illness Symptom Name Status Resu lt Effective Date Notes Quality upper extremit ies 12/10/2018 None Quality lower extremit ies 12/10/2018 None Onset and Resolution o ngoing 12/10/2018 None Onset of Symptom isabel hs ago 12/10/2018 None Limitation on Activities moderately limits activities 12/10/2018 None Frequency of Episodes decreasing 12/10/2018 None Alleviating Factors re petitive activity 12/10/2018 None Quality chronic 12/10/2018 None Quality primary hypert ension 12/10/2018 None Onset of Symptom durin g adulthood 12/10/2018 None Alleviating Factors me dication 12/10/2018 None Pertinent Findings diz ziness 12/10/2018 "sometimes" Pertinent Findings dys pnea 12/10/2018 None Pertinent Findings edema 12/10/2018 "very little" Pertinent Findings Den ies decreased energy 12/10/2018 None Quality stable 12/10/2018 None Quality improving 12/10/2018 None Quality chronic 11/22/2018 None Quality primary hypert ension 11/22/2018 None Onset and Resolution o ngoing 11/22/2018 None Onset of Symptom durin g adulthood 11/22/2018 None Alleviating Factors me dication 11/22/2018 None Pertinent Findings Den ies dizziness 11/22/2018 None Pertinent Findings dys pnea 11/22/2018 "normal amount" Quality upper extremit ies 11/22/2018 None Quality lower extremit ies 11/22/2018 None Onset and Resolution o ngoing 11/22/2018 None Onset of Symptom _ mon ths ago 11/22/2018 None Limitation on Activities moderately limits activities 11/22/2018 None Frequency of Episodes decreasing 11/22/2018 None Alleviating Factors re petitive activity 11/22/2018 None Pertinent Findings Den ies back pain 11/22/2018 None Pertinent Findings Den ies insomnia 11/22/2018 None Pertinent Findings Den ies fever 11/22/2018 None Pertinent Findings Den ies lethargy 11/22/2018 None Pertinent Findings Den ies muscle tenderness 11/22/2018 None _ pneumonia 11/01/2018 None Quality acute illness 11/01/2018 None Onset of Symptom 51 da ys ago 11/01/2018 None Pertinent Findings Den ies pain 11/01/2018 None Severity moderate 11/01/2018 None Significant Medical Conditions acute illness 11/01/2018 None Mechanism of injury un known 11/01/2018 None Location in the right eye 07/08/2018 None Quality constant 07/08/2018 None Onset and Resolution s udden in onset 07/08/2018 None Onset of Symptom 1 day s ago 07/08/2018 None Location frontal sinuses 07/08/2018 None Quality constant 07/08/2018 None Quality fullness 07/08/2018 None Quality pressure 07/08/2018 None Onset and Resolution s udden in onset 07/08/2018 None Onset of Symptom _ wee ks ago 07/08/2018 None Frequency of Episodes daily 07/08/2018 None Location on the right 06/04/2018 None Quality animal bite 06/04/2018 None Quality constant 06/04/2018 None Onset of Symptom 3 wee ks ago 06/04/2018 None Quality intermittent 04/23/2018 None Onset and Resolution g radual in onset 04/23/2018 None Frequency of Episodes daily 04/23/2018 None Pertinent Findings paulette rseness 04/23/2018 None Quality chronic 04/23/2018 None Quality primary hypert ension 04/23/2018 None Onset and Resolution o ngoing 04/23/2018 None Onset of Symptom durin g adulthood 04/23/2018 None Alleviating Factors me dication 04/23/2018 None Pertinent Findings Den ies dizziness 04/23/2018 None Pertinent Findings dys pnea 04/23/2018 "normal amount" sinus congestion Location frontal sinuses 02/28/2018 None sinus congestion Quality constant 02/28/2018 None sinus congestion Quality fullness 02/28/2018 None sinus congestion Quality pressure 02/28/2018 None sore throat Location dif fusely 02/28/2018 None sore throat Quality achi ng 02/28/2018 None sore throat Quality cons tant 02/28/2018 None sore throat Quality scra tchy 02/28/2018 None sore throat Onset of Symptom [...] in onset 02/19/2018 None sore throat Location dif fusely 02/19/2018 None sore throat Quality achi ng 02/19/2018 None sore throat Quality cons tant 02/19/2018 None sore throat Quality scra tchy 02/19/2018 None sore throat Onset and Resolution sudden in onset 02/19/2018 None sore throat Onset of Symptom 5 days ago 02/19/2018 None sore throat Frequency of Episodes daily 02/19/2018 None sore throat Location dif fusely 11/09/2017 None sore throat Quality achi ng 11/09/2017 None sore throat Quality burn ing 11/09/2017 None sore throat Quality cons tant 11/09/2017 None sore throat Onset and Resolution sudden in onset 11/09/2017 None sore throat Onset of Symptom 3 days ago 11/09/2017 None sore throat Frequency of Episodes daily 11/09/2017 None hypertension Quality chr onic 10/22/2017 None hypertension Quality jamir cristina hypertension 10/22/2017 None hypertension Onset and Resolution [...] Findings Denies edema 10/22/2017 None arrhythmia Quality chron ic 10/22/2017 None arrhythmia Quality irreg ular beats 10/22/2017 (afib) arrhythmia Onset and Resolution ongoing 10/22/2017 None arrhythmia Alleviating Factors medication 10/22/2017 None Annual Medicare Wellness Exam Alcohol Use does not drink any alcohol 2017 None Annual Medicare Wellness Exam Aspirin Use yes 2017 None Annual Medicare Wellness Exam Blood Glucose (self reported) don't know 2017 No ne Annual Medicare Wellness Exam Blood Pressure (self reported) borderline (120/80 - 139/89) 018 None Annual Medicare Wellness Exam Choles terol (self reported) desireable (below 200) 2017 None Annual Medicare Wellness Exam Depres noel (last 6 months) almost never 2017 None Annual Medicare Wellness Exam Depres noel or Hopelessness almost never 2017 None Annual Medicare Wellness Exam Descri be Your Health good 2017 None Annual Medicare Wellness Exam Exerci se Habits does not exercise 2017 None Annual Medicare Wellness Exam Handli ng Stress usually shyanne effectively 2017 None Annual Medicare Wellness Exam Hemagl obin A-1C (self reported) don't know 2017 No ne Annual Medicare Wellness Exam Hours of Sleep 6 2017 None Annual Medicare Wellness Exam Intera ction with Friends yes 2017 None Annual Medicare Wellness Exam Intere sts & Pleasure most of the time 2017 None Annual Medicare Wellness Exam Life S atisfaction very satisfied 2017 None Annual Medicare Wellness Exam Motor Vehicle Safety always fastens seat belt: y 07/28/19 18 None Annual Medicare Wellness Exam Motor Vehicle [...] 3 2017 None Annual Medicare Wellness Exam Smokin g and Tobacco Use non smoker 2017 No ne Annual Medicare Wellness Exam Social & Emotional Support always 2017 None Annual Medicare Wellness Exam Stress almost never 2017 None Annual Medicare Wellness Exam Sun Exposure protects skin when outdoors: y 2017 None hypertension Quality jamir cristina hypertension 07/23/2017 None hypertension Onset and Resolution ongoing 07/23/2017 None hypertension Onset of Symptom during adulthood 07/23/2017 None hypertension Quality chr onic 07/23/2017 None hypertension Blood Pressure Values patient [...] ongoing 07/09/2017 None cough Location in the th roat 06/29/2017 None cough Quality constant 06/29/2017 None [...] Episodes unchanged 06/29/2017 None cough Triggers known all ergens 06/29/2017 None Hospital Follow Up _ inf ection 04/23/2017 None Hospital Follow Up Quality acute [...] Quality acute 04/10/2017 None sore throat Quality scra tchy 04/10/2017 None sore throat Pertinent Findings fever 04/10/2017 None cough Location in the sho ng 04/10/2017 None cough Quality acute 04/10/2017 None [...] Quality acute 03/29/2017 None sore throat Quality scra tchy 03/29/2017 None sore throat Pertinent Findings Denies [...] ~2 hours 02/06/2017 None chest pain/pressure Significant Medi carmella Conditions coronary artery disease 02/06/2017 None chest pain/pressure Significant Medi carmella Conditions hypertension 02/06/2017 None chest pain/pressure Triggers no known associated factors 02/06/2017 None cough Location in the sho ng 11/06/2016 None cough Quality constant 11/06/2016 None cough Quality dry 11/06/2016 None cough Quality worsening 11/06/2016 None cough Onset and Resolution ongoing 11/06/2016 None cough Onset of Symptom _ months ago 11/06/2016 None cough Frequency of Episodes daily 11/06/2016 None cough Location in the th roat 09/27/2016 None cough Quality acute 09/27/2016 None cough Triggers post nasa l drip 09/27/2016 None cough Pertinent Findings Denies fever 09/27/2016 None cough Pertinent Findings nasal congestion 09/27/2016 None cough Pertinent Findings Denies nausea 09/27/2016 None cough Pertinent Findings Denies purulent sputum 09/27/2016 None cough Pertinent Findings post nasal drip 09/27/2016 None hypertension Quality sta ble 03/21/2016 None hypertension Onset and Resolution ongoing [...] Exacerbating Factors diet 03/21/2016 None arrhythmia Quality tachy cardia 03/21/2016 None arrhythmia Onset and Resolution ongoing 03/21/2016 Dr. Avila managing arrhythmia Alleviating Factors medication 03/21/2016 None cough Quality intermitte nt 03/21/2016 None cough Pertinent Findings sputum production [...] Findings Denies fever 02/01/2016 None hypertension Quality sta ble 11/23/2015 None hypertension Onset and Resolution ongoing [...] Exacerbating Factors diet 11/23/2015 None arrhythmia Quality tachy cardia 11/23/2015 None arrhythmia Onset and Resolution ongoing [...] exposure 11/23/2015 None cough Location in the th roat 10/14/2015 None cough Quality productive 10/14/2015 None [...] up Instructions none 07/20/2015 None hypertension Quality sta ble 07/06/2015 None hypertension Pertinent Findings Denies dizziness 07/06/2015 None hypertension Pertinent Findings dyspnea 07/06/2015 None hypertension Pertinent Findings Denies edema 07/06/2015 None hyperlipidemia Onset and Resolution ongoing 07/06/2015 None arrhythmia Quality tachy cardia 07/06/2015 None arrhythmia Onset and Resolution ongoing [...] preauricular area 07/06/2015 None new lesion Quality painf ul 07/06/2015 None new lesion Onset and Resolution ongoing 07/06/2015 None new lesion Onset of Symptom 2 months ago 07/06/2015 None Hospital Follow Up _ car diac disease 03/29/2015 None Hospital Follow Up Pertinent [...] and Resolution ongoing 03/08/2015 None hypertension Quality sta ble 03/08/2015 None arrhythmia Quality tachy cardia 03/08/2015 None arrhythmia Onset and Resolution ongoing 03/08/2015 Dr. Avila managing arrhythmia Alleviating Factors medication 03/08/2015 Started on Digoxin arrhythmia Pertinent Findings nausea 03/08/2015 None cough Location in the th roat 02/02/2015 None cough Quality productive 02/02/2015 None [...] Episodes increasing 02/02/2015 None cough Triggers known all ergens 02/02/2015 None sinus congestion Severity moderate 02/02/2015 [...] No Advance Directive data Encounters Encounter Performer Loca tion Codes Date [id number]) [id number] EST. P ATIENT, LEVEL IV Diagnosis: Chronic atrial fibrillation[ICD10: I48.2] Diagnosis: Hypo-osmolality and hyponatremia[ICD10: E87.1] Diagnosis: Muscle weakness (generalized)[ICD10: M62.81] Diagnosis: Other emphysema[ICD10: J43.8] Lucrecia Parsons MD, [facility] CPT- 4: 34936 12/10/2018 ([id number]) [id number] EST. P ATIENT, LEVEL IV Diagnosis: Hypo-osmolality and hyponatremia[ICD10: E87.1] Diagnosis: Muscle weakness (generalized)[ICD10: M62.81] Diagnosis: Other emphysema[ICD10: J43.8] Lucrecia Parsons MD, [facility] CPT- 4: 62818 11/22/2018 06409 EST. PATIENT, LEVEL V Diagnosis: Muscle weakness (generalized)[ICD10: M62.81] Diagnosis: Rash and other nonspecific skin eruption[ICD10: R21] Diagnosis: Other hemorrhoids[ICD10: K64.8] Diagnosis: Hypo-osmolality and hyponatremia[ICD10: E87.1] Diagnosis: Other emphysema[ICD10: J43.8] Diagnosis: Paroxysmal atrial fibrillation[ICD10: I48.0] Diagnosis: Encounter for follow-up examination after completed treatment for conditions other than malignant neoplasm[ICD10: Z09] Diagnosis: Essential (primary) hypertension[ICD10: I10] Lucrecia Parsons MD, [facility] CPT-4: 99314 11/01/2018 54571 EST. PATIENT, LEVEL IV Diagnosis: Other acute sinusitis[ICD10: J01.80] Diagnosis: Other allergic rhinitis[ICD10: J30.89] Diagnosis: Other mucopurulent conjunctivitis, right eye[ICD10: H10.021] Sandra Parsons MD, [facility] CPT-4: 96396 07/08/2018 04046 EST. PATIENT, LEVEL III Diagnosis: Cellulitis of right upper limb[ICD10: L03.113] Sandra Parsons MD, [facility] CPT-4: 93683 06/04/2018 ([id number]) [id number] EST. P ATIENT, LEVEL IV Diagnosis: Essential (primary) hypertension[ICD10: I10] Diagnosis: Chronic atrial fibrillation[ICD10: I48.2] Diagnosis: Mixed hyperlipidemia[ICD10: E78.2] Steffany Parsons MD, [facility] CPT- 4: 42135 04/23/2018 05771 EST. PATIENT, LEVEL IV Diagnosis: Other acute sinusitis[ICD10: J01.80] Diagnosis: Other allergic rhinitis[ICD10: J30.89] Sandra Parsons MD, [facility] CPT-4: 49437 02/28/2018 63784 EST. PATIENT, LEVEL IV Diagnosis: Other acute sinusitis[ICD10: J01.80] Diagnosis: Other allergic rhinitis[ICD10: J30.89] Sandra Parsons MD, [facility] CPT-4: 59410 02/19/2018 31404 EST. PATIENT, LEVEL III Diagnosis: Acute laryngopharyngitis[ICD10: J06.0] Diagnosis: Other allergic rhinitis[ICD10: J30.89] Sandra Parsons MD, [facility] CPT-4: 81713 11/09/2017 ([id number]) [id number] EST. P ATIENT, LEVEL IV Diagnosis: Essential (primary) hypertension[ICD10: I10] Diagnosis: Chronic atrial fibrillation[ICD10: I48.2] Steffany Parsons MD, [facility] CPT-4: 36525 10/22/2017 ([id number]) 15889 EST. P ATIENT, LEVEL IV Diagnosis: Essential (primary) hypertension[ICD10: I10] Diagnosis: Chronic atrial fibrillation[ICD10: I48.2] Diagnosis: Cough[ICD10: R05] Steffany Parsons MD, [facility] CPT-4: 18533 07/23/2017 ([id number]) 60375 EST. P ATIENT, LEVEL III Diagnosis: Cough[ICD10: R05] Diagnosis: Other allergic rhinitis[ICD10: J30.89] Diagnosis: Chronic obstructive pulmonary disease with (acute) exacerbation[ICD10: J44.1] Lucrecia Parsons MD, [facility] CPT-4: 62743 07/09/2017 ([id number]) 31856 EST. P ATIENT, LEVEL III Diagnosis: Cough[ICD10: R05] Diagnosis: Other allergic rhinitis[ICD10: J30.89] Diagnosis: Chronic obstructive pulmonary disease with (acute) exacerbation[ICD10: J44.1] Lucrecia Parsons MD, [facility] CPT-4: 26484 06/29/2017 ([id number]) 15190 EST. P ATIENT, LEVEL III Diagnosis: Essential (primary) hypertension[ICD10: I10] Diagnosis: Cough[ICD10: R05] Steffany Parsons MD, [facility] CPT-4: 04014 04/23/2017 ([id number]) 07085 EST. P ATIENT, LEVEL IV Diagnosis: Hemoptysis[ICD10: R04.2] Diagnosis: Essential (primary) hypertension[ICD10: I10] Diagnosis: Chronic obstructive pulmonary disease with acute lower respiratory infection[ICD10: J44.0] Steffany Parsons MD, [facility] CPT-4: 57228 04/10/2017 53020 EST. PATIENT, LEVEL III Diagnosis: Acute laryngopharyngitis[ICD10: J06.0] Diagnosis: Other allergic rhinitis[ICD10: J30.89] Sandra Parsons MD, [facility] CPT-4: 30058 03/29/2017 ([id number]) 05940 EST. P ATIENT, LEVEL III Diagnosis: Pneumonia due to Mycoplasma pneumoniae[ICD10: J15.7] Diagnosis: Cough[ICD10: R05] Diagnosis: Other chest pain[ICD10: R07.89] Steffany Parsons MD, [facility] CPT-4: 36834 02/06/2017 [id number] EST. PATIENT, LEVEL IV Diagnosis: Cough[ICD10: R05] Diagnosis: Shortness of breath[ICD10: R06.02] Diagnosis: Gastro-esophageal reflux disease without esophagitis[ICD10: K21.9] Sandra aPrsons MD, [facility] CPT-4: 17543 11/06/2016 97064 EST. PATIENT, LEVEL IV Diagnosis: Other allergic rhinitis[ICD10: J30.89] Diagnosis: Acute bronchitis due to other specified organisms[ICD10: J20.8] Sandra Parsons MD, [facility] CPT-4: 30679 09/27/2016 ([id number]) 44635 EST. P ATIENT, LEVEL IV Diagnosis: Essential (primary) hypertension[ICD10: I10] Diagnosis: Chronic atrial fibrillation[ICD10: I48.2] Diagnosis: Encounter for therapeutic drug level monitoring[ICD10: Z51.81] Steffany Parsons MD, [facility] CPT-4: 63982 03/21/2016 ([id number]) 78301 EST. 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 P ATIENT, LEVEL III Diagnosis: Allergic rhinitis due to pollen[ICD10: J30.1] Diagnosis: Actinic keratosis[ICD10: L57.0] Lucrecia Parsons MD, [facility] CPT- 4: 17889 10/14/2015 ([id number]) 21062 EST. P ATIENT, LEVEL IV Diagnosis: Essential (primary) hypertension[ICD10: I10] Diagnosis: Chronic atrial fibrillation[ICD10: I48.2] Steffany Parsons MD, [facility] CPT-4: 12097 07/06/2015 20312 EST. PATIENT, LEVEL III Diagnosis: Essential (primary) hypertension[ICD10: I10] Diagnosis: Chronic atrial fibrillation[ICD10: I48.2] Diagnosis: Shortness of breath[ICD10: R06.02] Diagnosis: Melena[ICD10: K92.1] Sandra Parsons MD, [facility] CPT-4: 66100 03/29/2015 ([id number]) 05609 EST. P ATIENT, LEVEL IV Diagnosis: Essential (primary) hypertension[ICD10: I10] Diagnosis: Chronic atrial fibrillation[ICD10: I48.2] Diagnosis: Cough[ICD10: R05] Steffany Parsons MD, [facility] CPT-4: 39329 03/08/2015 ([id number]) 89585 EST. P ATIENT, LEVEL III Diagnosis: Other seasonal allergic rhinitis[ICD10: J30.2] Diagnosis: Other lesions of oral mucosa[ICD10: K13.79] [facility] CPT-4: 09772 02/02/2015 ([id number]) OFFICE VISI T [facility] - LEVEL 4 Diagnosis: ESSENTIAL HYPERTENSION[ICD9: 401.9] Diagnosis: HYPERLIPIDEMIA[ICD9: 272.4] Diagnosis: ACTINIC KERATOSIS[ICD9: 702.0] [facility] CPT-4: 18673 09/22/2014 Plan of Care Planned Activity Notes C odes Status Date Visit Plan: Low sodium -check elect rolytes Chronic Anticoagulant use - Pt has been counseled about the anticoagulant, need for serial monitoring, and need for the pt to alert the physician as to any new bruising, or acute bleeding. Therapeutic goal for INR is between 2.0 and 3.5. Emphysema -continue breathing treatments TID -patient to start pulmonary rehab Generalized weakness-significantly improved- patient to finish home health PT next week 12/10/2018 Appointment: Lucrecia Yeager WPtel: [phone] (30 min) Complex 12/10/2018 Patient Education: Patient Medication Summary Completed 12/10/2018 Visit Plan: Low sodium -repeat labs today-continue gatorade Weakness -post prolonged hospitalization -patient is doing well -transferring with stand by assist -passed home safety evaluation -plans to d/c to home on 12/04/18 Emphysema- patient is off oxygen and breathing treatments decreased to three times daily -continues to f/u with Dr Mijares 11/22/2018 Appointment: Lucrecia Yeager WPtel: [phone] (30 min) Complex 11/22/2018 Patient Education: Patient Medication Summary Completed 11/22/2018 Visit Plan: Hospital follow up -pul monary hemorrhage with pneumonia-continue with oxygen at 2 liters -keep appt with Dr Mijares as scheduled -continue breathing treatments as ordered Generalized weakness -due to prolonged hospitalization -he is doing PT/OT at [facility] -he did stand for 10 seconds twice this week -continue with therapy Rash -left index and pinky finger -rx for mupirocin ointment until healed Hemorrhoids -restart hemorrhoid cream Low sodium -gatorade 8oz BID and repeat labs in 2 weeks Afib -eliquis stopped in hospital due to hemorrhage -now on coumadin -monitor closely HTN- controlled -no changes 11/01/2018 Appointment: (30 min) Complex 11/01/2018 Patient Education: Patient Medication Summary Completed 11/01/2018 Appointment: Steffany Parsons WPtel: [facility]5 [facility] (15 min) Moderate 10/22/2018 Appointment: Steffany Parsons WPtel: [phone] [facility] (15 min) Moderate 09/30/2018 Appointment: Steffany Parsons WPtel: [facility] (15 min) Moderate 09/19/2018 Visit Plan: Sinusitis - Pt has acut e infection - pain in face, maxillary region, Pt informed to use decongestant, RX given to patient, sinus rinses also recommended. Call if symptoms do not show improvement. Allerg ies - chronic - recommended pt to use [...] times daily. 07/08/2018 Appointment: Sandra Tim WPtel: [facility]8 [facility] [address] (15 min) Moderate 07/08/2018 Patient Education: Patient Medication Summary Completed 07/08/2018 Appointment: Nurse Visit 06/07/2018 Visit Plan: Cellulitis - possible s pider bite - The patient was instructed in appropriate wound care. The patient was instructed to use the antibiotic and ointment as per RX. The patient is to call for any change in symptoms, increase in size of the lesion, increase in pain, worsening redness, warmth, discharge. 06/04/2018 Appointment: Sandra Tim WPtel: [phone] (30 min) Complex 06/04/2018 Patient Education: Patient Medication Summary Completed 06/04/2018 Visit Plan: Hypertension - well con trolled - continue with current medications, continue with [...] time. 04/23/2018 Appointment: [facility] Parsons [facility]Ptel: [phone] (15 min) Moderate 04/23/2018 Patient Education: Patient Medication Summary Completed 04/23/2018 Patient Education: Hypertension Completed 04/23/2018 Patient Education: Cholesterol Management Completed 04/23/2018 Visit Plan: Sinusitis - Pt has acut e infection - pain in face, maxillary region, Pt informed to use decongestant, RX given to patient, sinus rinses also recommended. Call if symptoms do not show improvement. Allerg ies - chronic - recommended pt to use [...] allergy spray. 02/28/2018 Appointment: Sandra Tim WPtel: [facility] (15 min) Moderate 02/28/2018 Patient Education: Patient Medication Summary Completed 02/28/2018 Appointment: Injection 02/26/2018 Patient Education: Patient Medication Summary Completed 02/26/2018 Visit Plan: Sinusitis - Pt has acut e infection - pain in face, maxillary region, Pt informed to use decongestant, RX given to patient, sinus rinses also recommended. Call if symptoms do not show improvement. Allerg ies - chronic - recommended pt to use [...] allergy spray. 02/19/2018 Appointment: Sandra Tim WPtel: [facility] (15 min) Moderate 02/19/2018 Patient Education: Patient Medication Summary Completed 02/19/2018 Visit Plan: URI - Pt advised to inc rease fluids, vitamin C. Discussed natural and expected [...] allergy spray. 11/09/2017 Appointment: Sandra Tim WPtel: [phone] [facility] (15 min) Moderate 11/09/2017 Patient Education: Patient Medication Summary Completed 11/09/2017 Visit Plan: Hypertension - well jamil henry - continue with current medications, continue with [...] uncontrolled. 10/22/2017 Appointment: Steffany Parsons WPtel: [phone] [facility] (15 min) Moderate 10/22/2017 Patient Education: Patient Medication Summary Completed 10/22/2017 Visit Plan: Medicare Exam - today w e discussed the patients past history, immunizations, preventative [...] Completed 2017 Visit Plan: Hypertension - well jamil henry - continue with current medications, continue with [...] Completed 07/23/2017 Visit Plan: COPD EXACERBATION - EPIDEMIOLOGIST D is a chronic problem for this patient, [...] changes. 07/09/2017 Appointment: Lucrecia Yeager WPtel: [phone] [facility] [phone] (30 min) Complex 07/09/2017 Patient Education: Patient Medication Summary Completed 07/09/2017 Visit Plan: Allergies - chronic - r ecommended pt to use allergy medication as prescribed. Pt has been counseled as to the appropriate use of the medication. Pt to call if allergy symptoms are not controlled with th e medication. If using nasal spray, instructions as [...] changes. 06/29/2017 Appointment: Lucrecia Yeager WPtel: [phone] [facility] [phone] (15 min) Moderate 06/29/2017 Patient Education: Patient Medication Summary Completed 06/29/2017 Appointment: Steffany Parsons WPtel: [phone] [facility] (15 min) Moderate 04/30/2017 Visit Plan: Hypertension - well con trolled - continue with current medications, continue with no added salt diet. Pt has been encouraged to exercise daily. The pt has been advised to call the office if there are any acute concerns about change in blood pressure readings at home. Cough, shortness of breath - resolved finish breathing treatments. 04/23/2017 Appointment: Steffany Parsons WPtel: [phone] [facility] (15 min) Moderate 04/23/2017 Patient Education: Patient Medication Summary Completed 04/23/2017 Visit Plan: Hemoptysis and COPD exa cerbation - continue with antibiotics, rx for antifungal tablet and suspension. chest xray ordered, monitor symptoms. Pt to stop aspirin x 1 week, continue with eliquis. call if s ymptoms are not improving. rx for phenergan with codeine. 04/10/2017 Appointment: Steffany Parsons WPtel: [phone] [facility] (15 min) Moderate 04/10/2017 Patient Education: Patient Medication Summary Completed 04/10/2017 Visit Plan: URI - Pt advised to inc rease fluids, vitamin C. Discussed natural and expected [...] spray. 03/29/2017 Appointment: Sandra Tim WPtel: [phone] [facility] [address] (15 min) Moderate 03/29/2017 Patient Education: Patient Medication Summary Completed 03/29/2017 Visit Plan: Pneumonia - Pt has been diagnosed with pneumonia by physical exam. A chest xray has been ordered as have antibiotics. The pt is aware of the diagnosis and the need for acute treatment of this illness. Cough - rx for promethazine/codeine syrup for cough. 02/06/2017 Appointment: Steffany Parsons WPtel: [phone] [facility] (15 min) Moderate 02/06/2017 Patient Education: Patient Medication Summary Completed 02/06/2017 Patient Education: Obesity Completed 02/06/2017 Visit Plan: Cough, shortness of stiven ath - ongoing - will order X-ray - [...] improving. 11/06/2016 Appointment: Sandra Tim WPtel: [phone] (15 min) Moderate 11/06/2016 Patient Education: Patient Medication Summary Completed 11/06/2016 Visit Plan: Allergies - chronic - r ecommended pt to use allergy medication as prescribed. Pt has been counseled as to the appropriate use of the medication. Pt to call if allergy symptoms are not controlled with th e medication. If using nasal spray, instructions as [...] worsen. 09/27/2016 Appointment: Sandra Tim WPtel: [phone] (30 min) Complex 09/27/2016 Patient Education: Patient Medication Summary Completed 09/27/2016 Visit Plan: Hypertension - well con trolled - continue with current medications, continue with [...] uncontrolled. 03/21/2016 Appointment: Steffany Parsons WPtel: [phone] [facility] (15 min) Moderate 03/21/2016 Patient Education: Patient Medication Summary Completed 03/21/2016 Patient Education: Obesity Completed 03/21/2016 Visit Plan: Diarrhea-recent abx use -check stool for cdiff- increase probiotic to twice daily-bland diet advance as tolerated-call if symptoms do not resolve or if any worse. Patient verbalized understanding of pl an. 02/01/2016 Appointment: Lucrecia Yeager WPtel: [phone] (15 min) Moderate 02/01/2016 Patient Education: Patient Medication Summary Completed 02/01/2016 Patient Education: Obesity Completed 02/01/2016 [facility] Info faxed Completed 11/27/2015 Visit Plan: Hypertension - well con trolled - continue with current medications, continue with [...] Summary Completed 11/23/2015 Appointment: Steffany Parsons WPtel: [facility]5 [facility] (15 min) Moderate 11/15/2015 Visit Plan: Allergies - chronic - r ecommended pt to use allergy medication as prescribed. Pt has been counseled as to the appropriate use of the medication. Pt to call if allergy symptoms are not controlled with th e medication. If using nasal spray, instructions as [...] not heal 10/14/2015 Appointment: Lucrecia Yeager WPtel: [facility]5 [facility] [phone] (15 min) Moderate 10/14/2015 Patient Education: Patient [...] acute concerns. 07/20/2015 Appointment: Lucrecia Yeager WPtel: [facility]5 [facility] [phone] (30 min) Complex 07/20/2015 Patient Education: Patient Medication Summary Completed 07/20/2015 Visit Plan: Hypertension - well con trolled - continue with current medications, continue with [...] acute concerns. 07/06/2015 Appointment: Steffany Parsons WPtel: [facility] (15 min) Moderate 07/06/2015 Patient Education: [...] - pt has an upcoming appointment with clinical informatics specialist to possibly have an ablation done. Bloody stool - pt states that he had bright red blood in his stool, states he thinks it is from straining to go - will check H&H 03/29/2015 Patient Education: Patient Medication Summary Completed 03/29/2015 Patient Education: Hypertension Completed 03/29/2015 Visit Plan: Hypertension - well con trolled - continue with current medications, continue with [...] Education: Hypertension Completed 03/08/2015 [facility] Referral Completed 02/13/2015 Visit Plan: Allergies - chronic - r ecommended pt to use allergy medication as prescribed. Pt has been counseled as to the appropriate use of the medication. Pt to call if allergy symptoms are not controlled with th e medication. If using nasal spray, instructions as [...] 02/02/2015 Care Plan: Referral Order SNOMED-CT : [id number] Ordered 02/02/2015 Visit Plan: Hypertension - well con trolled - continue with current medications, continue with [...] not improving. 09/22/2014 Appointment: Steffany Parsons WPtel: [address] [place], [place] [id number] [place] ([place]) New Patient 09/22/2014 Patient Education: Patient Medication Summary Completed 09/22/2014 Patient Education: Hypertension Completed 09/22/2014 [facility] Referral Initiated Instructions Comment . Hypertension - wel l controlled - continue with current medications, continue [...] rate is becoming uncontrolled. use flonase before y ou go outside to cut the grass - then when you come in from cutting the grass - use saline spray in the nose - (ocean nasal spray) . Hypertension - well controlled - jaime nue with current medications, continue with no added [...] the nose - (ocean nasal spray) . Low sodium -check electrolytes Chronic Anticoagulant use - Pt has been counseled about the anticoagulant, need for serial monitoring, and need for the pt to alert the physician as to any new bruising, or acute bleeding. Therapeutic goal for INR is between 2.0 and 3.5. Emphysema -continue breathing treatments TID -patient to start pulmonary rehab Generalized weakness-significantly improved- patient to finish home health PT next week Steroid shot today stop the keflex and start the doxycycline take a probiotic (culturelle, [employer], or generic) twice a day while on the doxycycline antibiotic eye drop - use for right eye, but you can start it in the left eye if it gets irritated at all continue warm compress to the eye as needed . Sinusitis - Pt has acute infection - p ain in face, maxillary region, Pt informed to [...] eye four times daily. . Hemoptysis and EPIDEMIOLOGIST D exacerbation - continue with antibiotics, rx for [...] monitor for acute changes. . Hypertension - wel l controlled - continue with current medications, continue [...] - pt has an upcoming appointment with clinical informatics specialist to possibly have an ablation done. [...] any other acute concerns. . Hypertension - wel l controlled - continue with current medications, continue [...] warmth, discharge. . URI - Pt advised t o increase fluids, vitamin C. Discussed natural and [...] URI - Pt advised to increase fluids, v itamin C. Discussed natural and expected course of [...] on Sunday of this week - on 16 - 9AM . Hypertension - well controlled - jaime nue with current medications, continue with no added [...] lesion on his ear . Hypertension - wel l controlled - continue with current medications, continue [...] up at this time. . Allergies - chroni c - recommended pt to use allergy medication [...] clinic. . Hypertension - well controlled - jaime nue with current medications, continue with no added [...] water. . Hypertension - well controlled - jaime nue with current medications, continue with no added salt diet. Pt has been encouraged to exercise daily. The pt has been advised to call the office if there are any acute concerns about change in blood pressure readings at home. Atrial Fibrillation -recommended pt to keep appt with Dr. Avila - CHECK STOOL FOR CDI FF INCREASE PROBIOTIC TO TWICE DAILY . Diarrhea-recent abx use-check stool fo r cdiff-increase probiotic to twice daily-bland diet advance as tolerated-call if symptoms do not resolve or if any worse. Patient verbalized understanding of plan. FLONASE NASAL SPRAY KENALOG INJECTION TODAY SHORT COURSE OF PREDNISONE -START TOMORROW . Allergies - chronic - recommended pt t o use allergy medication as prescribed. Pt has [...] patient is stable, monitor for acute changes. calmoseptine cream t o buttock restart hemorrhoid cream mupirocin to left index and pinky finger . Hospital follow up -pulmonary hemorrha ge with pneumonia-continue with oxygen at 2 liters -keep appt with Dr Mijares as scheduled -continue breathing treatments as ordered Generalized weakness -due to prolonged hospitalization -he is doing PT/OT at [facility] -he did stand for 10 seconds twice this week -continue with therapy Rash -left index and pinky finger -rx for mupirocin ointment until healed Hemorrhoids -restart hemorrhoid cream Low sodium -gatorade 8oz BID and repeat labs in 2 weeks Afib -eliquis stopped in hospital due to hemorrhage -now on coumadin -monitor closely HTN- controlled -no changes . Pneumonia - Pt has been diagnosed with pneumonia by physical exam. A chest xray has been ordered as have antibiotics. The pt is aware of the diagnosis and the need for acute treatment of this illness. Cough - rx for promethazine/codeine syrup for cough. Kenalog injection to day in the office-if your symptoms persist, start claritin or zyrtec If you develop fever, worsening symptoms or other concerns, call me and we can start you on an antibiotic if needed . Allergies - chronic - recommended pt t o use allergy medication as prescribed. Pt has [...] evaluation and biopsy . Medicare Exam - to day we discussed the patients past history, immunizations, [...] DOPA paperwork for health care surrogate. . Low sodium -repeat labs today-continue gatorade Weakness -post prolonged hospitalization -patient is doing well -transferring with stand by assist -passed home safety evaluation -plans to d/c to home on 12/04/18 Emphysema- patient is off oxygen and breathing treatments decreased to three times daily -continues to f/u with Dr Mijares . Cough, shortness o f breath - ongoing - will order X-ray [...] nasal steroid allergy spray. . Allergies - chroni c - recommended pt to use allergy medication [...] lesion does not heal . Hypertension - wel l controlled - continue with current medications, continue with no added salt diet. Pt has been encouraged to exercise daily. The pt has been advised to call the office if there are any acute concerns about change in blood pressure readings at home. Cough, shortness of breath - resolved finish breathing treatments.
--- OUTSIDE RECORDS SUMMARY | 2019-07-22 16:00 | XMS REPORT | CCD ---
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 Commercial Insurance [id number] Unknown Unknown Family history Father Diagnosis Age At Onset Prostate Cancer Unknown Runs in the family Diagnosis Age At Onset Hypertension Unknown Mother Diagnosis Age At Onset No Family Disease Entered N/A Social History Social History Element Codes Description Effective Dates Marital status Unknown M arried Mary 02/06/2017 Number of children Unknown 5 09/22/[address]: 9538772 Quit over 10 years ago 09/22/[address]: 560689764 Never drinks alcohol 09/22/2014 Allergies, Adverse Reactions, [...] acidop hilus 1 billion cell tablet RxNorm: 202539 1 Tablet(s) PO QHS 12/10/2018 No Stop Date Active duloxetine 20 mg cap marck,delayed release RxNorm: 695191 1 Capsule(s) PO BID 12/10/2018 04/08/2019 Ac tive ipratropium-albutero l 0.5 mg-3 mg(2.5 mg base)/3 mL nebulization soln RxNorm: 3198477 1 INH TID and q 2 hours prn 11/30/19 19 No Stop Date Active PLAC E ON HOLD INCASE THEY NEED IT Coumadin 3 mg tablet RxNorm: 039546 1 Tablet(s) PO 4 times a week Sun S AT 11/29/2018 03/28/2019 Active hydralazine 25 mg ta blet RxNorm: 973049 1 Tablet(s) PO Q6 as needed 11/29/2018 01/27/2019 Active losartan 50 mg tablet RxNorm: 791889 1 Tablet(s) PO QPM 11/29/2018 03/28/2019 Active spironolactone 25 mg tablet RxNorm: 521501 1 Tablet(s) PO daily 11/29/2018 03/28/2019 Active diltiazem CD 120 mg capsule,extended release 24 hr RxNorm: 854597 1 Capsule(s) PO daily 11/29/2018 03/28/2019 Active Coumadin 2 mg tablet RxNorm: 610596 1 Tablet(s) PO 3 x week m w f 11/29/2018 03/28/2019 Ac tive pantoprazole 40 mg t ablet,delayed release RxNorm: 997958 1 Tablet(s) PO daily 11/29/2018 03/28/2019 Ac tive metoprolol tartrate 25 mg tablet RxNorm: 901537 1 Tablet(s) PO BID 11/29/2018 03/28/2019 Active duloxetine 20 mg cap marck,delayed release RxNorm: 004897 1 Capsule(s) PO daily 11/29/2018 12/09/2018 In active duloxetine 20 mg cap marck,delayed release RxNorm: 970302 1 Capsule(s) PO daily 11/29/2018 11/28/2018 In active aspirin 81 mg tablet RxNorm: 785516 1 Tablet(s) PO every other day 11/22/2018 No Stop Date Active melatonin 10 mg disi ntegrating tablet RxNorm: 0216242 1 Tablet(s) PO daily 11/01/2018 No Stop Date Active Lasix 20 mg tablet RxNorm: 961661 Tablet(s) PO Q72H 11/01/2018 No Stop Date Active Lialda 1.2 gram tabl et,delayed release RxNorm: 412289 2 Tablet(s) PO QHS -P rescried by Dr. Seymour 11/01/2018 No Stop Date Active Imodium A-D 2 mg tablet RxNorm: 817662 1/2 Tablet(s) PO BID 11/01/2018 No Stop Date Active metoprolol tartrate 25 mg tablet RxNorm: 272348 1 Tablet(s) PO BID 11/01/2018 11/28/2018 Inactive ipratropium-albutero l 0.5 mg-3 mg(2.5 mg base)/3 mL nebulization soln RxNorm: 6420841 1 INH Q4H and q 2 hours prn 11/02/1911/28/2018 Inactive Flonase Allergy Reli ef 50 mcg/actuation nasal spray,suspension RxNorm: 2314189 2 Risco NASAL daily as needed 201812/09/2018 Inactive diphenoxylate-atropi ne 2.5 mg-0.025 mg tablet RxNorm: 3451027 1/2 Tablet(s) PO Q12 H and q 1 q 6 hours prn 11/01/2018 12/09/2018 Inactive losartan 50 mg tablet RxNorm: 743666 1 Tablet(s) PO QPM at supper 11/01/2018 11/28/2018 Inactive Coumadin 3 mg tablet RxNorm: 263265 1 Tablet(s) PO TIW M W F 10/30/2018 11/28/2018 Inactive Klor-Con M20 mEq tab let,extended release RxNorm: 8472390 TAKE 1 TABLET EVERY MORNING 10/01/2018 10/31/2018 Inactive doxycycline hyclate 100 mg capsule RxNorm: 7994817 1 Capsule(s) PO BID 07/31/2018 08/09/2018 In active doxycycline hyclate 100 mg capsule RxNorm: 5848945 1 Capsule(s) PO BID 07/08/2018 07/17/2018 In active Kenalog 40 mg/mL nori pension for injection RxNorm: 3645028 1 Milliliter(s) Inj 07/08/2018 07/08/2018 In active ciprofloxacin 0.3 % eye drops RxNorm: 842108 2 Drop(s) ophthalmic (eye) Q2H while awake x 2 days then Q4H x 5 days 07/08/2018 10/31/2018 Inactive Keflex 500 mg capsule RxNorm: 350477 1 Capsule(s) PO TID 07/02/2018 07/08/2018 Inactive dapsone 100 mg tablet RxNorm: 058481 1 Tablet(s) PO daily 06/04/2018 06/10/2018 Inactive doxycycline hyclate 100 mg capsule RxNorm: 4255262 1 Capsule(s) PO BID 06/04/2018 06/13/2018 In active Lasix 40 mg tablet RxNorm: 194541 TAKE 1 TABLET DAILY 04/22/2018 10/31/2018 Inactive prednisone 20 mg tablet RxNorm: 472676 2 Tablet(s) PO daily 02/28/2018 03/04/2018 Inactive START TOMORROW Keflex 500 mg capsule RxNorm: 074700 1 Capsule(s) PO TID 02/28/2018 03/09/2018 Inactive ceftriaxone 500 mg s olution for injection RxNorm: 9926907 Inj 02/28/2018 02/28/2018 Inactive Kenalog 40 mg/mL nori pension for injection RxNorm: 1776791 Milliliter(s) Inj 02/26/2018 02/26/2018 In active Keflex 500 mg capsule RxNorm: 388612 1 Capsule(s) PO TID 02/19/2018 02/25/2018 Inactive Klor-Con M20 mEq tab let,extended release RxNorm: 7282261 TAKE 1 TABLET EVERY MORNING 12/04/2017 09/30/2018 Inactive prednisone 20 mg tablet RxNorm: 086741 2 Tablet(s) PO daily 11/16/2017 11/20/2017 Inactive START TOMORROW Zithromax Z-Mau 250 mg tablet RxNorm: 254833 1 Tablet(s) PO daily 11/16/2017 11/20/2017 Inactive Zithromax Z-Mau 250 mg tablet RxNorm: 109011 1 Tablet(s) PO daily 11/16/2017 11/15/2017 Inactive Keflex 500 mg capsule RxNorm: 024565 1 Capsule(s) PO TID 11/09/2017 11/15/2017 Inactive Zithromax 250 mg tablet RxNorm: 492637 [address] and 1 tab po on day 2-5 Tablet(s) PO 08/30/2017 09/03/2017 Inactive zpack x 1 doxycycline hyclate 100 mg tablet RxNorm: 068251 1 Tablet(s) PO BID 07/09/2017 07/15/2017 Inactive prednisone 20 mg tablet RxNorm: 252850 2 Tablet(s) PO daily 06/29/2017 07/01/2017 Inactive START TOMORROW Kenalog 40 mg/mL nori pension for injection RxNorm: 9291132 Milliliter(s) Inj 06/29/2017 06/29/2017 In active Lasix 40 mg tablet RxNorm: 362241 TAKE 1 TABLET DAILY 04/24/2017 04/21/2018 Inactive Diflucan 150 mg tablet RxNorm: 742290 1 Tablet(s) PO daily 04/10/2017 04/16/2017 Inactive Bactrim DS 800 mg-16 0 mg tablet RxNorm: 543994 1 Tablet(s) PO BID 04/10/2017 04/16/2017 Inactive nystatin 100,000 uni t/mL oral suspension RxNorm: 817409 5 Milliliter(s) PO QI D 04/10/2017 04/19/2017 In active cefdinir 300 mg capsule RxNorm: 103741 1 Capsule(s) PO BID 03/28/2017 04/06/2017 Inactive cefdinir 300 mg capsule RxNorm: 916405 1 Capsule(s) PO BID 02/06/2017 02/15/2017 Inactive ceftriaxone 500 mg s olution for injection RxNorm: 7895063 Inj 02/06/2017 02/06/2017 Inactive omeprazole 20 mg tab let,delayed release RxNorm: 241481 1 Tablet(s) PO daily 11/06/2016 12/05/2016 In active Phenergan with Codei ne Syrup RxNorm: 5 Milliliter(s) PO QID as n eeded 10/30/2016 10/31/2018 In active Tessalon Perles 100 mg capsule RxNorm: 353980 1-2 Capsule(s) PO TID as needed cough 10/30/2016 11/08/2016 In active Klor-Con M20 mEq tab let,extended release RxNorm: 4337975 TAKE 1 TABLET EVERY MORNING 10/26/2016 12/03/2017 Inactive ceftriaxone 500 mg s olution for injection RxNorm: 1944952 1 Milliliter(s) Inj 09/27/2016 09/27/2016 In active Phenergan with Codei ne Syrup RxNorm: 5 Milliliter(s) PO QID as n eeded 09/27/2016 10/29/2016 In active Tessalon Perles 100 mg capsule RxNorm: 454936 1-2 Capsule(s) PO TID as needed cough 09/27/2016 09/29/2016 In active Kenalog 40 mg/mL nori pension for injection RxNorm: 6549762 1 Milliliter(s) Inj 09/27/2016 09/27/2016 In active Flagyl 500 mg tablet RxNorm: 753246 1 Tablet(s) PO TID 2016 08/05/2016 Inactive Lasix 40 mg tablet RxNorm: 584853 TAKE 1 TABLET DAILY 07/26/2016 04/23/2017 Inactive Zithromax 250 mg tablet RxNorm: 203818 [address] day and 1 tab po on day 2-5 Tablet(s) PO 03/28/2016 03/27/2016 Inactive zpack x 1 Zithromax 250 mg tablet RxNorm: 827592 [address] day and 1 tab po on day 2-5 Tablet(s) PO 03/28/2016 04/01/2016 Inactive zpack x 1 Flagyl 500 mg tablet RxNorm: 003240 1 Tablet(s) PO TID 02/07/2016 02/06/2016 Inactive Flagyl 500 mg tablet RxNorm: 762290 1 Tablet(s) PO TID 02/07/2016 02/16/2016 Inactive Zyrtec-D 5 mg-120 mg tablet,extended release RxNorm: 2278011 1 Tablet(s) PO daily as needed allergies 11/23/2015 10/31/2018 Inactive Imodium A-D 2 mg tablet RxNorm: 204292 1/2 Tablet(s) PO daily 11/23/2015 10/31/2018 Inactive Mucinex 600 mg table t, extended release RxNorm: 909307 1 Tablet(s) PO BID as needed 11/23/2015 01/21/2016 In active Lasix 40 mg tablet RxNorm: 463714 TAKE 1 TABLET DAILY 11/01/2015 07/25/2016 Inactive Klor-Con M20 mEq tab let,extended release RxNorm: 0875074 TAKE 1 TABLET EVERY MORNING 11/01/2015 10/25/2016 Inactive Flonase Allergy Reli ef 50 mcg/actuation nasal spray,suspension RxNorm: 9748122 2 Risco NASAL daily 07/20/2015 10/31/2018 Inactive Kenalog 40 mg/mL nori pension for injection RxNorm: 0825843 Milliliter(s) Inj 02/02/2015 02/02/2015 In active Plavix 75 mg tablet RxNorm: 920806 1 Tablet(s) PO daily 10/05/2014 03/07/2015 Inactive Klor-Con M20 mEq tab let,extended release RxNorm: 976612 1 Tablet(s) PO QAM 10/05/2014 10/31/2015 In active Lasix 40 mg tablet RxNorm: 325367 1 Tablet(s) PO daily 10/05/2014 10/31/2015 Inactive Crestor 5 mg tablet RxNorm: 433853 1/2 Tablet(s) PO daily 10/05/2014 10/31/2018 Inactive Efudex 5 % topical c ream RxNorm: 456530 1 Application TOP BID x 2 weeks, allow healing x 1 -2 weeks, then reuse 10/05/2014 07/05/2015 Inactive metoprolol tartrate 100 mg tablet RxNorm: 293543 1 Tablet(s) PO BID 10/05/2014 12/28/2015 Inactive Pradaxa 150 mg capsule RxNorm: 1237237 1 Capsule(s) PO BID 10/05/2014 04/09/2017 Inactive amlodipine 10 mg tablet RxNorm: 067854 1/2 Tablet(s) PO QAM 10/05/2014 07/05/2015 Inactive Efudex 5 % topical c ream RxNorm: 255667 1 Application TOP BID x 2 weeks, allow healing x 1 -2 weeks, then reuse 09/22/2014 10/04/2014 Inactive Klor-Con M20 mEq tab let,extended release RxNorm: 193846 1 Tablet(s) PO QAM 09/22/2014 10/04/2014 In active Lasix 40 mg tablet RxNorm: 067096 1 Tablet(s) PO daily 09/22/2014 10/04/2014 Inactive duloxetine 20 mg cap marck,delayed release RxNorm: 397692 1 Capsule(s) PO BID No Start Date Active Centrum Silver oral RxNorm: 06916 oral No Start Date Active magnesium 250 mg tablet RxNorm: 1 Tablet(s) PO daily No Start Date Active loratadine 10 mg tablet RxNorm: 480738 1 Tablet(s) PO daily No Start Date Active Vitamin D3 5,000 uni t tablet RxNorm: 346561 1 Tablet(s) PO BID No Start Date Active Flomax 0.4 mg capsule RxNorm: 134091 1 Capsule(s) PO QPM No Start Date Active Glucosamine Chondroi t Complx Advan oral RxNorm: oral No Start D ate Active hydralazine 25 mg ta blet RxNorm: 400661 1 Tablet(s) PO Q6 as needed No Start Date 11/28/2018 Inactive Cartia XT 180 mg cap marck,extended release RxNorm: 929701 2 Capsule(s) PO daily No Start Date 10/31/2018 Inactive Lactobacillus acidop hilus 1 billion cell tablet RxNorm: 742641 1 Tablet(s) PO BID No Start Date 12/09/2018 Inactive spironolactone 25 mg tablet RxNorm: 327921 1 Tablet(s) PO daily No Start Date 11/28/2018 Inactive cetirizine 10 mg tablet RxNorm: 8649574 1 Tablet(s) PO daily at lunch No Start Date 10/31/2018 Inactive Canasa 1,000 mg rect al suppository RxNorm: 648722 [address] QHS [address] seymour No Start Date 10/31/2018 Inactive Lialda 1.2 gram tabl et,delayed release RxNorm: 481739 1 Tablet(s) PO QHS -P rescried by Dr. Seymour No Start Date 10/31/2018 Inactive melatonin 1 mg tablet RxNorm: 197063 1 Tablet(s) PO daily No Start Date 10/31/2018 Inactive Plavix 75 mg tablet RxNorm: 752821 1 Tablet(s) PO daily No Start Date 10/04/2014 Inactive Klor-Con M20 mEq tab let,extended release RxNorm: 588484 1 Tablet(s) PO QAM No Start Date 09/21/2014 Inactive diphenoxylate-atropi ne 2.5 mg-0.025 mg tablet RxNorm: 6638535 1/2 Tablet(s) PO Q12 H No Start Date 10/31/2018 Inactive Eliquis 5 mg tablet RxNorm: 6593182 1 Tablet(s) PO BID Dr Avila No Start Date 10/29/2018 Inactive diltiazem CD 120 mg capsule,extended release 24 hr RxNorm: 615602 1 Capsule(s) PO daily No Start Date 11/28/2018 Inactive diclofenac sodium 75 mg tablet,delayed release RxNorm: 420289 1 Tablet(s) PO TID as needed No Start Date 12/09/2018 Inactive Coumadin 2 mg tablet RxNorm: 230393 1 Tablet(s) PO 4 times a week T TH Sat S un No Start Date 11/28/2018 Inactive aspirin 81 mg tablet RxNorm: 052261 1 Tablet(s) PO daily No Start Date 11/21/2018 Inactive magnesium 200 mg (as magnesium oxide) tablet RxNorm: 161575 1 Tablet(s) PO daily No Start Date 11/01/2018 Inactive Emla topical RxNorm: 01164 topical No Start Date 12/09/2018 Inactive Imodium oral RxNorm: oral No Start Date 11/21 Inactive Colace 100 mg capsule RxNorm: 0419708 1 Capsule(s) PO BID No Start Date 12/09/2018 Inactive Lasix 40 mg tablet RxNorm: 314952 1 Tablet(s) PO daily No Start Date 09/21/2014 Inactive amlodipine 10 mg tablet RxNorm: 168288 1/2 Tablet(s) PO QAM No Start Date 10/04/2014 Inactive Crestor 5 mg tablet RxNorm: 810529 1/2 Tablet(s) PO daily No Start Date 10/04/2014 Inactive Flonase Allergy Reli ef 50 mcg/actuation nasal spray,suspension RxNorm: 1 Risco NASAL daily No Start Date 07/19/2015 Inactive aspirin 81 mg capsul e,delayed release RxNorm: 974233 1 Capsule(s) PO daily No Start Date 10/31/2018 Inactive losartan 25 mg tablet RxNorm: 220428 1 Tablet(s) PO QPM at supper No Start Date 10/31/2018 Inactive metoprolol tartrate 100 mg tablet RxNorm: 329791 1 Tablet(s) PO BID No Start Date 10/04/2014 Inactive ipratropium-albutero l 0.5 mg-3 mg(2.5 mg base)/3 mL nebulization soln RxNorm: 8380155 1 INH Q4H No Start Date 10/31/2018 Inactive digoxin 250 mcg tablet RxNorm: 959856 1 Tablet(s) PO daily No Start Date 10/31/2018 Inactive Probiotic 4X oral RxNorm: 5332681 oral No Start Date 07/06/2015 Inactive pantoprazole 40 mg t ablet,delayed release RxNorm: 884703 1 Tablet(s) PO daily No Start Date 11/28/2018 Inactive Probiotic oral RxNorm: 6205 oral No Start Date 10/31/2018 Inactive Pradaxa 150 mg capsule RxNorm: 0698182 1 Capsule(s) PO BID No Start Date 10/04/2014 Inactive Medication Administered Medication Codes Instruc tions Start Date Status Kenalog 40 mg/mL suspension for injection RxNorm: 4350981 1Milliliter 07/08/2018 N o longer Active ceftriaxone 500 mg solution for injection RxNorm: 8573513 02/28/2018 No longer A ctive Kenalog 40 mg/mL suspension for injection RxNorm: 2698762 Milliliter 02/26/2018 No longer Active Kenalog 40 mg/mL suspension for injection RxNorm: 7989223 Milliliter 06/29/2017 No longer Active ceftriaxone 500 mg solution for injection RxNorm: 1207158 02/06/2017 No longer A ctive Kenalog 40 mg/mL suspension for injection RxNorm: 2921900 1Milliliter 09/27/2016 N o longer Active ceftriaxone 500 mg solution for injection RxNorm: 3608434 1Milliliter 09/27/2016 N o longer Active Kenalog 40 mg/mL suspension for injection RxNorm: 8742970 Milliliter 02/02/2015 No longer Active Immunizations Vaccine [...] Code Item Item Code Result Date Pt Ojx2406 PT 16.3 seconds 12/10/2018 Pt Yyk8598 INR 1.4 12/10/2018 Pt Rzq1762 Low Intensity - 1.5-2.0 12/10/2018 Pt Udq6992 Mod intensity - 2.0-3.0 12/10/2018 Pt Djb3476 Hi intensity - 3.0-4.0 12/10/2018 Comp Metabolic Myl796 NA 139 mEq/L 12/10/2018 Comp Metabolic Iqm444 K 4.4 mEq/L 12/10/2018 Comp Metabolic Ist263 CL 103 mEq/L 12/10/2018 Comp Metabolic Tpa710 CO2 28.0 mEq/L 12/10/2018 Comp Metabolic Azr228 AN ION GAP 12 12/10/2018 Comp Metabolic Aws073 GL UCOSE 114 mg/dL 12/10/2018 Comp Metabolic Xbi346 Cr eat 1.0 mg/dL 12/10/2018 Comp Metabolic Jll706 eG FR 82 ml/min/1.73m2 12/10 Comp Metabolic Dui802 BUN 14 mg/dL 12/10/2018 Comp Metabolic Vee179 B/ C Ratio 14.7 Ratio 12/10/2018 Comp Metabolic Kcb891 CA LCIUM 9.0 mg/dL 12/10/2018 Comp Metabolic Puy106 AL K PHOS 76 U/L 12/10/2018 Comp Metabolic Yza414 T(SGOT) 17 U/L 12/10/2018 Comp Metabolic Pol096 AL T(SGPT) 12 U/L 12/10/2018 Comp Metabolic Kjb019 BI LI T 0.3 mg/dL 12/10/2018 Comp Metabolic Kcd001 AL BUMIN 3.5 g/dL 12/10/2018 Comp Metabolic Foq465 TP RO 6.5 g/dL 12/10/2018 Comp Metabolic Uye574 GL OB 3.0 g/dL 12/10/2018 Comp Metabolic Umh455 A/ G Ratio 1.2 Ratio 12/10/2018 Comp Metabolic Rdv356 Os mo 279 mOsmo 12/10/2018 Electrolytes Ord62 [...] 31.4 pg 10/23/2017 Cbc With Differential Ord2 Meeker% 8.5 % 10/23/2017 Cbc With Differential Ord2 [...] 2.73 K/ul 10/23/2017 Cbc With Differential Ord2 Meeker ABS# 0.9 K/ul 10/23/2017 Cbc With Differential Ord2 Eos ABS# 0.6 K/ul 10/23/2017 Cbc With Differential Ord2 Baso ABS# 0.0 K/ul 10/23/2017 Digoxin Ord9 DIGOXIN 1.0 NG/ML 10/23/2017 Lipid Ord30 CHOL 108 mg/dL 10/23/2017 Lipid Ord30 HDL 39.0 mg/dl 10/23/2017 Lipid Ord30 TRIG 175 mg/dL 10/23/2017 Lipid Ord30 LDL 34 mg/dL 10/23/2017 Lipid Ord30 C/HDL 2.8 Ratio 10/23/2017 Comp Metabolic Hyv103 NA 140 mEq/L 10/23/2017 Comp Metabolic Dac430 K 4.1 mEq/L 10/23/2017 Comp Metabolic Dva604 CL 102 mEq/L 10/23/2017 Comp Metabolic Bnp188 CO2 30.0 mEq/L 10/23/2017 Comp Metabolic Ysi455 AN ION GAP 12 10/23/2017 Comp Metabolic Bak407 GL UCOSE 124 mg/dL 10/23/2017 Comp Metabolic Xdm577 Cr eat 1.1 mg/dL 10/23/2017 Comp Metabolic Ijl967 eG FR 71 ml/min/1.73m2 10/23 Comp Metabolic Fik775 BUN 11 mg/dL 10/23/2017 Comp Metabolic Pzr545 B/ C Ratio 10.2 Ratio 10/23/2017 Comp Metabolic Qyx870 CA LCIUM 9.3 mg/dL 10/23/2017 Comp Metabolic Oon057 AL K PHOS 72 U/L 10/23/2017 Comp Metabolic Yaa432 T(SGOT) 21 U/L 10/23/2017 Comp Metabolic Cyt025 AL T(SGPT) 17 U/L 10/23/2017 Comp Metabolic Mom069 BI LI T 0.8 mg/dL 10/23/2017 Comp Metabolic Unk700 AL BUMIN 4.3 g/dL 10/23/2017 Comp Metabolic Ywn261 TP RO 7.4 g/dL 10/23/2017 Comp Metabolic Meh902 GL OB 3.1 g/dL 10/23/2017 Comp Metabolic Ymf840 A/ G Ratio 1.4 Ratio 10/23/2017 Comp Metabolic Yzu390 Os mo 280 mOsmo 10/23/2017 Tsh Ord6 TSH (3rd IS) 3.37 uIU/mL 10/23/2017 Test(s) Not Perfromed UCR5109 Test(s) Not Performed Test(s) Not Performed. See Below: 10/23/2017 Test(s) Not Perfromed [id number] TEST NAME PSA 10/23/2017 Test(s) Not Perfromed QPB5177 Rejection Reason PSA Performed yearly at Dr. Stone's Office 10/23/2017 Test(s) Not Perfromed YJV4061 COMMENT N/A 10/23/2017 Test(s) Not Perfromed WRM2533 Senior Planning Analyst Gian Johnson 10/23/2017 Comp Metabolic Vgu911 NA 137 mEq/L 03/21/2016 Comp Metabolic Wzw576 K 4.6 mEq/L 03/21/2016 Comp Metabolic Zfi994 CL 101 mEq/L 03/21/2016 Comp Metabolic Yvx777 CO2 31.0 mEq/L 03/21/2016 Comp Metabolic Wbt795 AN ION GAP 10 03/21/2016 Comp Metabolic Iuz316 GL UCOSE 106 mg/dL 03/21/2016 Comp Metabolic Anb358 Cr eat 1.1 mg/dL 03/21/2016 Comp Metabolic Cez961 eG FR 69 ml/min/1.73m2 03/21 Comp Metabolic Wki641 BUN 11 mg/dL 03/21/2016 Comp Metabolic Uxk890 B/ C Ratio 9.9 Ratio 03/21/2016 Comp Metabolic Ouj642 CA LCIUM 9.5 mg/dL 03/21/2016 Comp Metabolic Iqq423 AL K PHOS 88 U/L 03/21/2016 Comp Metabolic Zqu883 T(SGOT) 21 U/L 03/21/2016 Comp Metabolic Coc205 AL T(SGPT) 15 U/L 03/21/2016 Comp Metabolic Ooy663 BI LI T 0.7 mg/dL 03/21/2016 Comp Metabolic Gxk314 AL BUMIN 4.2 g/dL 03/21/2016 Comp Metabolic Zyx313 TP RO 7.9 g/dL 03/21/2016 Comp Metabolic Ols386 GL OB 3.7 g/dL 03/21/2016 Comp Metabolic Ucj141 A/ G Ratio 1.1 Ratio 03/21/2016 Comp Metabolic Ywq396 Os mo 274 mOsmo 03/21/2016 Lipid Ord30 [...] 31.3 pg 03/21/2016 Cbc With Differential Ord2 Meeker% 10.3 % 03/21/2016 Cbc With Differential Ord2 [...] 2.51 K/ul 03/21/2016 Cbc With Differential Ord2 Meeker ABS# 1.2 K/ul 03/21/2016 Cbc With Differential Ord2 Eos ABS# 0.7 K/ul 03/21/2016 Cbc With Differential Ord2 Baso ABS# 0.0 K/ul 03/21/2016 Clostridium Diff Tox A/B Xtc739 Cdiff Negative 02/01/2016 Culture Mrsa [id number] MRSA CULTURE SEE NOTES 04/09/2015 Digoxin Ord9 [...] Ord9 DIGOXIN 1.0 NG/ML 03/11/2015 Comp Metabolic Qqj058 NA 142 mEq/L 03/11/2015 Comp Metabolic Vdg024 K 4.4 mEq/L 03/11/2015 Comp Metabolic Sbx569 CL 107 mEq/L 03/11/2015 Comp Metabolic Dex849 CO2 27.0 mEq/L 03/11/2015 Comp Metabolic Xnw082 AN ION GAP 12 03/11/2015 Comp Metabolic Ylb549 GL UCOSE 106 mg/dL 03/11/2015 Comp Metabolic Tua190 Cr eat 1.1 mg/dL 03/11/2015 Comp Metabolic Ege022 eG FR 68 ml/min/1.73m2 03/11 Comp Metabolic Uja499 BUN 16 mg/dL 03/11/2015 Comp Metabolic Evm303 B/ C Ratio 14.3 Ratio 03/11/2015 Comp Metabolic Tjt746 CA LCIUM 9.5 mg/dL 03/11/2015 Comp Metabolic Aec338 AL K PHOS 82 U/L 03/11/2015 Comp Metabolic Uzz289 T(SGOT) 20 U/L 03/11/2015 Comp Metabolic Pde948 AL T(SGPT) 17 U/L 03/11/2015 Comp Metabolic Zqc928 BI LI T 0.4 mg/dL 03/11/2015 Comp Metabolic Xxg254 AL BUMIN 4.0 g/dL 03/11/2015 Comp Metabolic Zsx028 TP RO 6.9 g/dL 03/11/2015 Comp Metabolic Wfr321 GL OB 2.9 g/dL 03/11/2015 Comp Metabolic Cza044 A/ G Ratio 1.4 Ratio 03/11/2015 Comp Metabolic Oes077 Os mo 285 mOsmo 03/11/2015 Metabolic Ord15 [...] inspection of skin Location: face 11/01/2018 right religious, forehead, l eft religious - irrirated actinic keratosis Full Exam - [...] inspection of skin Location: face 04/23/2018 right religious, forehead, l eft religious - irrirated actinic keratosis Full Exam - [...] inspection of skin Location: face 10/22/2017 right religious, forehead, l eft religious - irrirated actinic keratosis Full Exam - [...] inspection of skin Location: face 03/21/2016 right religious, forehead, l eft religious - irrirated actinic keratosis Full Exam - [...] inspection of skin Location: face 11/23/2015 right religious, left religious - irrirated actinic keratosis Full Exam - [...] inspection of skin Location: face 07/06/2015 right religious, forehead, l eft religious - irrirated actinic keratosis Full Exam - [...] CPT-4: J3301 07/08/2018 THER/PROPH/DIAG INJ SC/IM CPT-4: 02722 07/08/2018 THER/PROPH/DIAG INJ SC/IM CPT-4: 93440 02/28/2018 ROCEPHIN, PER 250 MG CPT-4: J0696 02/28/2018 THER/PROPH/DIAG INJ SC/IM CPT-4: 44320 02/26/2018 TRIAMCINOLONE ACET I [place] NOS CPT-4: J3301 02/26/2018 PPPS, SUBSEQ VISIT CPT- 4: G0439 2017 TRIAMCINOLONE ACET I [place] NOS CPT-4: J3301 06/29/2017 THER/PROPH/DIAG INJ SC/IM CPT-4: 60245 02/06/2017 ROCEPHIN, PER 250 MG CPT-4: J0696 02/06/2017 ROCEPHIN, PER 250 MG CPT-4: J0696 09/27/2016 TRIAMCINOLONE ACET I [place] NOS CPT-4: J3301 09/27/2016 THER/PROPH/DIAG INJ SC/IM CPT-4: 01860 09/27/2016 DESTRUCT PREMALG LESION CPT-4: 18746 10/14/2015 DESTRUCT PREMALG LESION CPT-4: 64052 07/20/2015 DESTRUCT PREMALG LESION CPT-4: 28610 07/06/2015 DESTRUCT PREMALG LES 2-14 CPT-4: 60654 07/06/2015 TRIAMCINOLONE ACET I [place] NOS CPT-4: J3301 02/02/2015 Vital Signs Date Vital 12/10/2018 Blood Pressure 1: 112/68 Code: 8480-6 BMI: 27.2 Code: 44115-8 Heart Rate 1: 76 bpm Height: 5'8" SpO2: 94% Weight: 179 lbs 11/22/2018 Blood Pressure 1: 110/58 Code: 8480-6 Heart Rate 1: 74 bpm Height: 5'8" SpO2: 98% Weight: 11/01/2018 Blood Pressure 1: 120/70 Code: 8480-6 Heart Rate 1: 72 bpm Height: SpO2: 98% Weight: 07/08/2018 Blood Pressure 1: 134/64 Code: 8480-6 BMI: 30.6 Code: 73170-5 Heart Rate 1: 79 bpm Height: 5'8" SpO2: 98% Weight: 201 lbs 06/04/2018 Blood Pressure 1: 130/62 Code: 8480-6 BMI: 30.6 Code: 26032-5 Heart Rate 1: 88 bpm Height: 5'8" SpO2: 97% Weight: 201 lbs 04/23/2018 Blood Pressure 1: 130/72 Code: 8480-6 BMI: 30.1 Code: 69979-1 Heart Rate 1: 74 bpm Height: 5'8" SpO2: 97% Weight: 198 lbs 02/28/2018 Blood Pressure 1: 124/72 Code: 8480-6 BMI: 30.0 Code: 17316-5 Heart Rate 1: 69 bpm Height: 5'8" SpO2: 97% Temperature: 36.6 (C ) / 97.8 (F) Weight: 197 lbs 02/19/2018 Blood Pressure 1: 128/76 Code: 8480-6 BMI: 30.0 Code: 34056-0 Heart Rate 1: 66 bpm Height: 5'8" SpO2: 97% Weight: 197 lbs 11/09/2017 Blood Pressure 1: 130/74 Code: 8480-6 BMI: 29.3 Code: 22424-4 Heart Rate 1: 81 bpm Height: 5'8" SpO2: 98% Temperature: 36.6 (C ) / 97.9 (F) Weight: 193 lbs 10/22/2017 Blood Pressure 1: 132/82 Code: 8480-6 BMI: 29.0 Code: 05386-1 Heart Rate 1: 80 bpm Height: 5'8" SpO2: 98% Weight: 191 lbs 2017 Blood Pressure 1: 142/68 Code: 8480-6 BMI: 28.7 Code: 14291-1 Heart Rate 1: 62 bpm Height: 5'8" SpO2: 98% Waist Measure (cm): 102 cm Weight: 189 lbs 07/23/2017 Blood Pressure 1: 138/84 Code: 8480-6 BMI: 29.0 Code: 94726-3 Heart Rate 1: 69 bpm Height: 5'8" SpO2: 98% Weight: 191 lbs 07/09/2017 Blood Pressure 1: 120/82 Code: 8480-6 BMI: 29.2 Code: 74277-2 Heart Rate 1: 80 bpm Height: 5'8" SpO2: 98% Weight: 192 lbs 06/29/2017 Blood Pressure 1: 140/82 Code: 8480-6 BMI: 29.5 Code: 47715-0 Heart Rate 1: 83 bpm Height: 5'8" SpO2: 98% Weight: 194 lbs 04/23/2017 Blood Pressure 1: 132/74 Code: 8480-6 BMI: 28.4 Code: 74577-8 Heart Rate 1: 78 bpm Height: 5'8" SpO2: 97% Weight: 187 lbs 04/10/2017 Blood Pressure 1: 126/68 Code: 8480-6 BMI: 29.5 Code: 09380-1 Heart Rate 1: 68 bpm Height: 5'8" SpO2: 92% Temperature: 37.5 (C ) / 99.5 (F) Weight: 194 lbs 03/29/2017 Blood Pressure 1: 116/76 Code: 8480-6 BMI: 29.6 Code: 11221-0 Heart Rate 1: 61 bpm Height: 5'8" SpO2: 98% Weight: 195 lbs 02/06/2017 Blood Pressure 1: 130/74 Code: 8480-6 BMI: 30.4 Code: 20929-4 Heart Rate 1: 71 bpm Height: 5'8" SpO2: 98% Weight: 200 lbs 11/06/2016 Blood Pressure 1: 140/74 Code: 8480-6 BMI: 29.5 Code: 90141-7 Heart Rate 1: 76 bpm Height: 5'8" SpO2: 96% Weight: 194 lbs 09/27/2016 Blood Pressure 1: 138/78 Code: 8480-6 BMI: 29.6 Code: 83242-6 Heart Rate 1: 68 bpm Height: 5'8" SpO2: 97% Weight: 195 lbs 03/21/2016 Blood Pressure 1: 148/82 Code: 8480-6 BMI: 30.6 Code: 44535-8 Heart Rate 1: 67 bpm Height: 5'8" SpO2: 98% Weight: 201 lbs 02/01/2016 Blood Pressure 1: 128/86 Code: 8480-6 BMI: 30.3 Code: 51214-6 Heart Rate 1: 84 bpm Height: 5'8" SpO2: 96% Weight: 199 lbs 11/23/2015 Blood Pressure 1: 132/76 Code: 8480-6 BMI: 30.4 Code: 80538-7 Heart Rate 1: 81 bpm Height: 5'8" SpO2: 98% Weight: 200 lbs 10/14/2015 Blood Pressure 1: 120/80 Code: 8480-6 BMI: 30.4 Code: 54510-4 Heart Rate 1: 87 bpm Height: 5'8" SpO2: 97% Weight: 200 lbs 07/20/2015 Blood Pressure 1: 132/84 Code: 8480-6 BMI: 31.0 Code: 82033-9 Heart Rate 1: 78 bpm Height: 5'8" SpO2: 96% Weight: 204 lbs 07/06/2015 Blood Pressure 1: 130/78 Code: 8480-6 BMI: 31.0 Code: 98288-2 Heart Rate 1: 80 bpm Height: 5'8" SpO2: 98% Weight: 204 lbs 03/29/2015 Blood Pressure 1: 132/82 Code: 8480-6 BMI: 29.6 Code: 15786-3 Heart Rate 1: 76 bpm Height: 5'8" SpO2: 96% Weight: 195 lbs 03/08/2015 Blood Pressure 1: 126/84 Code: 8480-6 BMI: 30.2 Code: 76224-7 Heart Rate 1: 101 bpm Height: 5'8" SpO2: 98% Weight: 198 lbs 8 oz 02/02/2015 Blood Pressure 1: 132/86 Code: 8480-6 Heart Rate 1: 86 bpm SpO2: 98% Temperature: 36.6 (C ) / 97.8 (F) Weight: 198 lbs 09/22/2014 Blood Pressure 1: 128/80 Code: 8480-6 BMI: 29.3 Code: 30842-2 Heart Rate 1: 85 bpm Height: 5'8" [...] ongoing 07/09/2017 None cough Location in the roat 06/29/2017 None cough Quality constant 06/29/2017 [...] Encounters Encounter Performer Loca tion Codes Date ([id number]) 55213 EST. P ATIENT, LEVEL IV Diagnosis: Chronic atrial fibrillation[ICD10: I48.2] Diagnosis: Hypo-osmolality and hyponatremia[ICD10: E87.1] Diagnosis: Muscle weakness (generalized)[ICD10: M62.81] Diagnosis: Other emphysema[ICD10: J43.8] Lucrecia Parsons MD, [facility] CPT- 4: 07463 12/10/2018 ([id number]) 22504 EST. P ATIENT, LEVEL IV Diagnosis: Hypo-osmolality and hyponatremia[ICD10: E87.1] Diagnosis: Muscle weakness (generalized)[ICD10: M62.81] Diagnosis: Other emphysema[ICD10: J43.8] Lucrecia Parsons MD, [facility] CPT- 4: 05092 11/22/2018 [id number] EST. PATIENT, LEVEL V Diagnosis: Muscle weakness (generalized)[ICD10: M62.81] Diagnosis: Rash and other nonspecific skin eruption[ICD10: R21] Diagnosis: Other hemorrhoids[ICD10: K64.8] Diagnosis: Hypo-osmolality and hyponatremia[ICD10: E87.1] Diagnosis: Other emphysema[ICD10: J43.8] Diagnosis: Paroxysmal atrial fibrillation[ICD10: I48.0] Diagnosis: Encounter for follow-up examination after completed treatment for conditions other than malignant neoplasm[ICD10: Z09] Diagnosis: Essential (primary) hypertension[ICD10: I10] Lucrecia Parsons MD, [facility] CPT-4: 62900 11/01/2018 35734 EST. PATIENT, LEVEL IV Diagnosis: Other acute sinusitis[ICD10: J01.80] Diagnosis: Other allergic rhinitis[ICD10: J30.89] Diagnosis: Other mucopurulent conjunctivitis, right eye[ICD10: H10.021] Sandra Parsons MD, [facility] CPT-4: 36724 07/08/2018 27007 EST. PATIENT, LEVEL III Diagnosis: Cellulitis of right upper limb[ICD10: L03.113] Sandra Parsons MD, [facility] CPT-4: 53877 06/04/2018 ([id number]) 12946 EST. P ATIENT, LEVEL IV Diagnosis: Essential (primary) hypertension[ICD10: I10] Diagnosis: Chronic atrial fibrillation[ICD10: I48.2] Diagnosis: Mixed hyperlipidemia[ICD10: E78.2] Steffany Parsons MD, [facility] CPT- 4: 44794 04/23/2018 11921 EST. PATIENT, LEVEL IV Diagnosis: Other acute sinusitis[ICD10: J01.80] Diagnosis: Other allergic rhinitis[ICD10: J30.89] Sandra Parsons MD, [facility] CPT-4: 81670 02/28/2018 [id number] EST. PATIENT, LEVEL IV Diagnosis: Other acute sinusitis[ICD10: J01.80] Diagnosis: Other allergic rhinitis[ICD10: J30.89] Sandra Parsons MD, [facility] CPT-4: 12491 02/19/2018 00291 EST. PATIENT, LEVEL III Diagnosis: Acute laryngopharyngitis[ICD10: J06.0] Diagnosis: Other allergic rhinitis[ICD10: J30.89] Sandra Parsons MD, [facility] CPT-4: 95228 11/09/2017 ([id number]) 93767 EST. P ATIENT, LEVEL IV Diagnosis: Essential (primary) hypertension[ICD10: I10] Diagnosis: Chronic atrial fibrillation[ICD10: I48.2] Steffany Parsons MD, [facility] CPT-4: 90445 10/22/2017 ([id number]) 77970 EST. P ATIENT, LEVEL IV Diagnosis: Essential (primary) hypertension[ICD10: I10] Diagnosis: Chronic atrial fibrillation[ICD10: I48.2] Diagnosis: Cough[ICD10: R05] Steffany Parsons MD, [facility] CPT-4: 89884 07/23/2017 ([id number]) 74826 EST. P ATIENT, LEVEL III Diagnosis: Cough[ICD10: R05] Diagnosis: Other allergic rhinitis[ICD10: J30.89] Diagnosis: Chronic obstructive pulmonary disease with (acute) exacerbation[ICD10: J44.1] Lucrecia Parsons MD, [facility] CPT-4: 13137 07/09/2017 ([id number]) 73833 EST. P ATIENT, LEVEL III Diagnosis: Cough[ICD10: R05] Diagnosis: Other allergic rhinitis[ICD10: J30.89] Diagnosis: Chronic obstructive pulmonary disease with (acute) exacerbation[ICD10: J44.1] Lucrecia Parsons MD, [facility] CPT-4: 66701 06/29/2017 ([id number]) 08402 EST. P ATIENT, LEVEL III Diagnosis: Essential (primary) hypertension[ICD10: I10] Diagnosis: Cough[ICD10: R05] Steffany Parsons MD, [facility] CPT-4: 82267 04/23/2017 ([id number]) 91441 EST. P ATIENT, LEVEL IV Diagnosis: Hemoptysis[ICD10: R04.2] Diagnosis: Essential (primary) hypertension[ICD10: I10] Diagnosis: Chronic obstructive pulmonary disease with acute lower respiratory infection[ICD10: J44.0] Steffany Parsnos MD, [facility] CPT-4: 48177 04/10/2017 48973 EST. PATIENT, LEVEL III Diagnosis: Acute laryngopharyngitis[ICD10: J06.0] Diagnosis: Other allergic rhinitis[ICD10: J30.89] Sandra Parsons MD, [facility] CPT-4: 15383 03/29/2017 ([id number]) 14886 EST. P ATIENT, LEVEL III Diagnosis: Pneumonia due to Mycoplasma pneumoniae[ICD10: J15.7] Diagnosis: Cough[ICD10: R05] Diagnosis: Other chest pain[ICD10: R07.89] Steffany Parsons MD, [facility] CPT-4: 58248 02/06/2017 84744 EST. PATIENT, LEVEL IV Diagnosis: Cough[ICD10: R05] Diagnosis: Shortness of breath[ICD10: R06.02] Diagnosis: Gastro-esophageal reflux disease without esophagitis[ICD10: K21.9] Sandra Parsons MD, [facility] CPT-4: 10561 11/06/2016 08991 EST. PATIENT, LEVEL IV Diagnosis: Other allergic rhinitis[ICD10: J30.89] Diagnosis: Acute bronchitis due to other specified organisms[ICD10: J20.8] Sandra Parsons MD, [facility] CPT-4: 40695 09/27/2016 ([id number]) 04469 EST. P ATIENT, LEVEL IV Diagnosis: Essential (primary) hypertension[ICD10: I10] Diagnosis: Chronic atrial fibrillation[ICD10: I48.2] Diagnosis: Encounter for therapeutic drug level monitoring[ICD10: Z51.81] Steffany Parsons MD, [facility] CPT-4: 57898 03/21/2016 ([id number]) 61963 EST. 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 P ATIENT, LEVEL III Diagnosis: Allergic rhinitis due to pollen[ICD10: J30.1] Diagnosis: Actinic keratosis[ICD10: L57.0] Lucrecia Parsons MD, [facility] CPT- 4: 39094 10/14/2015 ([id number]) 07635 EST. P ATIENT, LEVEL IV Diagnosis: Essential (primary) hypertension[ICD10: I10] Diagnosis: Chronic atrial fibrillation[ICD10: I48.2] Steffany Parsons MD, [facility] CPT-4: 18354 07/06/2015 58807 EST. PATIENT, LEVEL III Diagnosis: Essential (primary) hypertension[ICD10: I10] Diagnosis: Chronic atrial fibrillation[ICD10: I48.2] Diagnosis: Shortness of breath[ICD10: R06.02] Diagnosis: Melena[ICD10: K92.1] Sandra Parsons MD, [facility] CPT-4: 73126 03/29/2015 ([id number]) 41482 EST. P ATIENT, LEVEL IV Diagnosis: Essential (primary) hypertension[ICD10: I10] Diagnosis: Chronic atrial fibrillation[ICD10: I48.2] Diagnosis: Cough[ICD10: R05] Steffany Parsons MD, [facility] CPT-4: 72164 03/08/2015 ([id number]) 22227 EST. P ATIENT, LEVEL III Diagnosis: Other seasonal allergic rhinitis[ICD10: J30.2] Diagnosis: Other lesions of oral mucosa[ICD10: K13.79] Lucrecia Parsons MD, [facility] CPT-4: 92405 02/02/2015 ([id number]) [facility], [facility] - LEVEL 4 Diagnosis: ESSENTIAL HYPERTENSION[ICD9: 401.9] Diagnosis: HYPERLIPIDEMIA[ICD9: 272.4] Diagnosis: ACTINIC KERATOSIS[ICD9: 702.0] [facility] CPT-4: 02447 09/22/2014 Plan of Care Planned Activity Notes [...] next week 12/10/2018 Appointment: Lucrecia Yeager WPtel: [address] [place], [place] [phone] (30 min) Complex 12/10/2018 Patient Education: Patient [...] Dr Mijares 11/22/2018 Appointment: Lucrecia Yeager WPtel: [facility] [place] [facility] [place] [phone] (30 min) Complex 11/22/2018 Patient Education: Patient Medication Summary Completed 11/22/2018 Visit Plan: Hospital follow up -pul monary hemorrhage with pneumonia-continue with oxygen at 2 liters -keep appt with Dr Mijares as scheduled -continue breathing treatments as ordered Generalized weakness -due to prolonged hospitalization -he is doing PT/OT at [facility] -he did stand for 10 seconds [...] Summary Completed 11/01/2018 Appointment: Steffany Parsons WPtel: [phone] [facility] (15 min) Moderate 10/22/2018 Appointment: JaquelineSteffany WPtel: [phone] [facility]6[address] (15 min) Moderate 09/30/2018 Appointment: JaquelineSteffany rosa WPtel: [phone] [facility]6[address] (15 min) Moderate 09/19/2018 Visit Plan: [...] times daily. 07/08/2018 Appointment: Sandra Tim WPtel: [phone] [facility] (15 min) Moderate 07/08/2018 Patient Education: Patient [...] warmth, discharge. 06/04/2018 Appointment: Sandra Tim WPtel: [phone] [facility] (30 min) Complex 06/04/2018 Patient Education: Patient Medication Summary Completed 06/04/2018 Visit Plan: Hypertension - kimberlee henry - continue with current medications, continue [...] time. 04/23/2018 Appointment: Steffany Parsons WPtel: [phone] [facility]6[address] (15 min) Moderate 04/23/2018 Patient Education: Patient [...] spray. 02/28/2018 Appointment: Sandra Tim WPtel: [phone] [facility] (15 min) Moderate 02/28/2018 Patient [...] allergy spray. 02/19/2018 Appointment: Sandra Tim WPtel: [facility] [place] [facility] [place] [address] (15 min) Moderate 02/19/2018 Patient Education: [...] allergy spray. 11/09/2017 Appointment: Sandra Tim WPtel: [address] [place], [place] [phone] (15 min) Moderate 11/09/2017 Patient Education: Patient Medication Summary Completed 11/09/2017 Visit Plan: Hypertension - well con trolled [...] becoming uncontrolled. 10/22/2017 Appointment: Steffany Parsons WPtel: [address] [place], [place] [phone] (15 min) Moderate 10/22/2017 Patient [...] nasal spray) 07/23/2017 Appointment: Steffany Parsons WPtel: [phone] 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 07/09/2017 Appointment: Lucrecia Yeager WPtel: [facility] [place] [facility] [place] [phone] (30 min) Complex 07/09/2017 Patient [...] acute changes. 06/29/2017 Appointment: Lucrecia Yeager WPtel: [facility] [place] [facility] [place] [phone] (15 min) Moderate 06/29/2017 Patient Education: Patient Medication Summary Completed 06/29/2017 Appointment: Steffany Parsons WPtel: [facility] [place] [facility] [place] [facility]6[address] (15 min) Moderate 04/30/2017 [...] treatments. 04/23/2017 Appointment: Steffany Parsons WPtel: [phone] (15 min) Moderate 04/23/2017 Patient Education: Patient Medication Summary Completed 04/23/2017 Visit Plan: Hemoptysis and COPD exa cerbation - continue with antibiotics, rx for antifungal tablet and suspension. chest xray ordered, monitor symptoms. Pt to stop aspirin x 1 week, continue with eliquis. call if s ymptoms are not improving. rx for phenergan with codeine. 04/10/2017 Appointment: Steffany Parsons WPtel: [phone] (15 min) Moderate 04/10/2017 Patient Education: [...] spray. 03/29/2017 Appointment: Sandra Tim WPtel: [phone] [place] [address] [place] (15 min) Moderate 03/29/2017 Patient Education: Patient Medication Summary Completed 03/29/2017 Visit Plan: Pneumonia - Pt has been diagnosed with pneumonia by physical exam. A chest xray has been ordered as have antibiotics. The pt is aware of the diagnosis and the need for acute treatment of this illness. Cough - rx for promethazine/codeine syrup for cough. 02/06/2017 Appointment: [phone] (15 min) Moderate 02/06/2017 Patient Education: Patient [...] not improving. 11/06/2016 Appointment: Sandra Tim WPtel: [phone] [facility] (15 min) Moderate 11/06/2016 Patient [...] acutely worsen. 09/27/2016 Appointment: [phone] (30 min) Complex 09/27/2016 Patient Education: Patient [...] becoming uncontrolled. 03/21/2016 Appointment: Steffany Parsons WPtel: [facility] [place] [facility] [place] [facility]6[address] (15 min) Moderate 03/21/2016 Patient Education: Patient Medication Summary Completed 03/21/2016 Patient Education: Obesity Completed 03/21/2016 Visit Plan: Diarrhea-recent abx use -check stool for cdiff- increase probiotic to twice daily-bland diet advance as tolerated-call if symptoms do not resolve or if any worse. Patient verbalized understanding of pl an. 02/01/2016 Appointment: Lucrecia Yeager WPtel: [facility] [place] [facility] [place] [address] (15 min) Moderate 02/01/2016 Patient Education: Patient Medication Summary Completed 02/01/2016 Patient Education: Obesity Completed 02/01/2016 Referral: Alexi Honeycutt [address] Info faxed Completed 11/27/2015 Visit Plan: [...] Parsons WPtel: [facility] [place] [facility] [place] [facility] (15 min) Moderate 11/15/2015 Visit Plan: Allergies [...] not heal 10/14/2015 Appointment: Lucrecia Yeager WPtel: [address] [place] [address] (15 min) Moderate 10/14/2015 Patient Education: Patient [...] acute concerns. 07/20/2015 Appointment: Lucrecia Yeager WPtel: [address] [place] [address] (30 min) Complex 07/20/2015 Patient Education: Patient [...] concerns. 07/06/2015 Appointment: [facility]el[phone] (15 min) Moderate 07/06/2015 Patient Education: [...] pt has an upcoming appointment with retail beauty specialist to possibly have an ablation done. [...] Education: Hypertension Completed 03/08/2015 [facility] Referral Completed 02/13/2015 Visit Plan: Allergies - [...] 02/02/2015 Care Plan: Referral Order SNOMED-CT : [id number] Ordered 02/02/2015 Visit Plan: Hypertension - well [...] not improving. 09/22/2014 Appointment: Steffany Parsons WPtel: [address] [place] [address] [place] ([place]) New Patient 09/22/2014 Patient Education: Patient Medication Summary Completed 09/22/2014 Patient Education: Hypertension Completed 09/22/2014 Referral: Alexi Honeycutt [address] Referral Initiated Instructions Comment use flonase before y ou go outside [...] to finish home health PT next week . Hemoptysis and [employer] STRATEGIST D exacerbation - continue with antibiotics, rx for antifungal tablet and suspension. chest xray ordered, monitor symptoms. Pt to stop aspirin x 1 week, continue with eliquis. call if symptoms are not improving. rx for phenergan with codeine. Mucinex - take twice daily with 16 [...] spray in the nasal steroid allergy spray. increase the flonase to twice daily use [...] any other acute concerns. . Allergies - chroni c - recommended [...] improved, or if symptoms acutely worsen. . Hypertension - wel l controlled - [...] allergy spray. . URI - Pt advised t o [...] worsening redness, warmth, discharge. . Hypertension - wel l controlled - [...] pt has an upcoming appointment with retail beauty specialist to possibly have an ablation done. Bloody stool - pt states that he had bright red blood in his stool, states he thinks it is from straining to go - will check H&H . Hypertension - wel l controlled - [...] patient is stable, monitor for acute changes. Steroid shot today stop the keflex and start the doxycycline take a probiotic (culturelle, 3Nod, or generic) twice a day while on [...] into affected eye four times daily. . Hypertension - wel l controlled - [...] their heart rate is becoming uncontrolled. . Sinusitis - Pt has acute infection [...] nasal steroid allergy spray. . Cough, shortness o f breath - [...] if the symptoms are not improving. . Low sodium -repeat labs today-continue gatorade Weakness -post prolonged hospitalization -patient is doing well -transferring with stand by assist -passed home safety evaluation -plans to d/c to home on 12/04/18 Emphysema- patient is off oxygen and breathing treatments decreased to three times daily -continues to f/u with Dr Mijares . Medicare Exam - to day we [...] paperwork for health care surrogate. Kenalog injection to day in the office-if [...] to Dr Honeycutt for evaluation and biopsy calmoseptine cream t o buttock restart hemorrhoid cream mupirocin to left index and pinky finger . Hospital follow up -pulmonary hemorrha ge with pneumonia-continue with oxygen at 2 liters -keep appt with Dr Mijares as scheduled -continue breathing treatments as ordered Generalized weakness -due to prolonged hospitalization -he is doing PT/OT at [facility] -he did stand for 10 seconds twice this week -continue with therapy Rash -left index and pinky finger -rx for mupirocin ointment until healed Hemorrhoids -restart hemorrhoid cream Low sodium -gatorade 8oz BID and repeat labs in 2 weeks Afib -eliquis stopped in hospital due to hemorrhage -now on coumadin -monitor closely HTN- controlled -no changes FLONASE NASAL SPRAY 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 . Allergies - stepheni c - recommended pt to use allergy [...]
--- OUTSIDE RECORDS SUMMARY | 2019-07-22 16:02 | XMS REPORT | CCD ---
Author Author Vishnu Parsons Organization [facility] Address [address] [place] [address] Phone Care Team Providers Care Sales Developer Name Role Phone PP Unavailable CCM Unavailable Summary Purpose Interface Exchange Insurance Providers Payer name Policy type / Coverage type Covered green party ID Effective Begin Date Effective End Date [facility] Commercial Insurance [id number] Unknown Unknown Family history Father Diagnosis Age At Onset Prostate Cancer Unknown Runs in the family Diagnosis Age At Onset Hypertension Unknown Mother Diagnosis Age At Onset No Family Disease Entered N/A Social History Social History Element Codes Description Effective Dates Marital status Unknown M arried Mary 02/06/2017 Number of children Unknown 5 09/22/[address]: 3251367 Quit over 10 years ago 09/22/[address]: 963304088 Never drinks alcohol 09/22/2014 Allergies, Adverse Reactions, [...] acidop hilus 1 billion cell tablet RxNorm: 791269 1 Tablet(s) PO QHS 12/10/2018 No Stop Date Active duloxetine 20 mg cap marck,delayed release RxNorm: 267289 1 Capsule(s) PO BID 12/10/2018 04/08/2019 Ac tive ipratropium-albutero l 0.5 mg-3 mg(2.5 mg base)/3 mL nebulization soln RxNorm: 5409467 1 INH TID and q 2 hours prn 11/30/19 19 No Stop Date Active PLAC E ON HOLD INCASE THEY NEED IT Coumadin 3 mg tablet RxNorm: 191523 1 Tablet(s) PO 4 times a week Sun S AT 11/29/2018 03/28/2019 Active hydralazine 25 mg ta blet RxNorm: 919453 1 Tablet(s) PO Q6 as needed 11/29/2018 01/27/2019 Active losartan 50 mg tablet RxNorm: 884719 1 Tablet(s) PO QPM 11/29/2018 03/28/2019 Active spironolactone 25 mg tablet RxNorm: 320378 1 Tablet(s) PO daily 11/29/2018 03/28/2019 Active diltiazem CD 120 mg capsule,extended release 24 hr RxNorm: 967640 1 Capsule(s) PO daily 11/29/2018 03/28/2019 Active Coumadin 2 mg tablet RxNorm: 496062 1 Tablet(s) PO 3 x week m w f 11/29/2018 03/28/2019 Ac tive pantoprazole 40 mg t ablet,delayed release RxNorm: 355067 1 Tablet(s) PO daily 11/29/2018 03/28/2019 Ac tive metoprolol tartrate 25 mg tablet RxNorm: 034145 1 Tablet(s) PO BID 11/29/2018 03/28/2019 Active duloxetine 20 mg cap marck,delayed release RxNorm: 513795 1 Capsule(s) PO daily 11/29/2018 12/09/2018 In active duloxetine 20 mg cap marck,delayed release RxNorm: 078832 1 Capsule(s) PO daily 11/29/2018 11/28/2018 In active aspirin 81 mg tablet RxNorm: 801482 1 Tablet(s) PO every other day 11/22/2018 No Stop Date Active melatonin 10 mg disi ntegrating tablet RxNorm: 2638524 1 Tablet(s) PO daily 11/01/2018 No Stop Date Active Lasix 20 mg tablet RxNorm: 913322 Tablet(s) PO Q72H 11/01/2018 No Stop Date Active Lialda 1.2 gram tabl et,delayed release RxNorm: 651737 2 Tablet(s) PO QHS -P rescried by Dr. Seymour 11/01/2018 No Stop Date Active Imodium A-D 2 mg tablet RxNorm: 696117 1/2 Tablet(s) PO BID 11/01/2018 No Stop Date Active metoprolol tartrate 25 mg tablet RxNorm: 179383 1 Tablet(s) PO BID 11/01/2018 11/28/2018 Inactive ipratropium-albutero l 0.5 mg-3 mg(2.5 mg base)/3 mL nebulization soln RxNorm: 9582594 1 INH Q4H and q 2 hours prn 11/02/1911/28/2018 Inactive Flonase Allergy Reli ef 50 mcg/actuation nasal spray,suspension RxNorm: 0801657 2 Jackpot NASAL daily as needed 201812/09/2018 Inactive diphenoxylate-atropi ne 2.5 mg-0.025 mg tablet RxNorm: 7111169 1/2 Tablet(s) PO Q12 H and q 1 q 6 hours prn 11/01/2018 12/09/2018 Inactive losartan 50 mg tablet RxNorm: 669635 1 Tablet(s) PO QPM at supper 11/01/2018 11/28/2018 Inactive Coumadin 3 mg tablet RxNorm: 516012 1 Tablet(s) PO TIW M W F 10/30/2018 11/28/2018 Inactive Klor-Con M20 mEq tab let,extended release RxNorm: 9105747 TAKE 1 TABLET EVERY MORNING 10/01/2018 10/31/2018 Inactive doxycycline hyclate 100 mg capsule RxNorm: 3971636 1 Capsule(s) PO BID 07/31/2018 08/09/2018 In active doxycycline hyclate 100 mg capsule RxNorm: 5466075 1 Capsule(s) PO BID 07/08/2018 07/17/2018 In active Kenalog 40 mg/mL nori pension for injection RxNorm: 1667937 1 Milliliter(s) Inj 07/08/2018 07/08/2018 In active ciprofloxacin 0.3 % eye drops RxNorm: 210564 2 Drop(s) ophthalmic (eye) Q2H while awake x 2 days then Q4H x 5 days 07/08/2018 10/31/2018 Inactive Keflex 500 mg capsule RxNorm: 115049 1 Capsule(s) PO TID 07/02/2018 07/08/2018 Inactive dapsone 100 mg tablet RxNorm: 701386 1 Tablet(s) PO daily 06/04/2018 06/10/2018 Inactive doxycycline hyclate 100 mg capsule RxNorm: 8828101 1 Capsule(s) PO BID 06/04/2018 06/13/2018 In active Lasix 40 mg tablet RxNorm: 147598 TAKE 1 TABLET DAILY 04/22/2018 10/31/2018 Inactive prednisone 20 mg tablet RxNorm: 600918 2 Tablet(s) PO daily 02/28/2018 03/04/2018 Inactive START TOMORROW Keflex 500 mg capsule RxNorm: 157656 1 Capsule(s) PO TID 02/28/2018 03/09/2018 Inactive ceftriaxone 500 mg s olution for injection RxNorm: 6961936 Inj 02/28/2018 02/28/2018 Inactive Kenalog 40 mg/mL nori pension for injection RxNorm: 6608358 Milliliter(s) Inj 02/26/2018 02/26/2018 In active Keflex 500 mg capsule RxNorm: 779566 1 Capsule(s) PO TID 02/19/2018 02/25/2018 Inactive Klor-Con M20 mEq tab let,extended release RxNorm: 3002752 TAKE 1 TABLET EVERY MORNING 12/04/2017 09/30/2018 Inactive prednisone 20 mg tablet RxNorm: 786782 2 Tablet(s) PO daily 11/16/2017 11/20/2017 Inactive START TOMORROW Zithromax Z-Mau 250 mg tablet RxNorm: 233953 1 Tablet(s) PO daily 11/16/2017 11/20/2017 Inactive Zithromax Z-Mau 250 mg tablet RxNorm: 360337 1 Tablet(s) PO daily 11/16/2017 11/15/2017 Inactive Keflex 500 mg capsule RxNorm: 120335 1 Capsule(s) PO TID 11/09/2017 11/15/2017 Inactive Zithromax 250 mg tablet RxNorm: 123240 [address] and 1 tab po on day 2-5 Tablet(s) PO 08/30/2017 09/03/2017 Inactive zpack x 1 doxycycline hyclate 100 mg tablet RxNorm: 871919 1 Tablet(s) PO BID 07/09/2017 07/15/2017 Inactive prednisone 20 mg tablet RxNorm: 253958 2 Tablet(s) PO daily 06/29/2017 07/01/2017 Inactive START TOMORROW Kenalog 40 mg/mL nori pension for injection RxNorm: 4090864 Milliliter(s) Inj 06/29/2017 06/29/2017 In active Lasix 40 mg tablet RxNorm: 455583 TAKE 1 TABLET DAILY 04/24/2017 04/21/2018 Inactive Diflucan 150 mg tablet RxNorm: 200440 1 Tablet(s) PO daily 04/10/2017 04/16/2017 Inactive Bactrim DS 800 mg-16 0 mg tablet RxNorm: 553339 1 Tablet(s) PO BID 04/10/2017 04/16/2017 Inactive nystatin 100,000 uni t/mL oral suspension RxNorm: 986213 5 Milliliter(s) PO QI D 04/10/2017 04/19/2017 In active cefdinir 300 mg capsule RxNorm: 527739 1 Capsule(s) PO BID 03/28/2017 04/06/2017 Inactive cefdinir 300 mg capsule RxNorm: 218666 1 Capsule(s) PO BID 02/06/2017 02/15/2017 Inactive ceftriaxone 500 mg s olution for injection RxNorm: 0522097 Inj 02/06/2017 02/06/2017 Inactive omeprazole 20 mg tab let,delayed release RxNorm: 242788 1 Tablet(s) PO daily 11/06/2016 12/05/2016 In active Phenergan with Codei ne Syrup RxNorm: 5 Milliliter(s) PO QID as n eeded 10/30/2016 10/31/2018 In active Tessalon Perles 100 mg capsule RxNorm: 124346 1-2 Capsule(s) PO TID as needed cough 10/30/2016 11/08/2016 In active Klor-Con M20 mEq tab let,extended release RxNorm: 5324195 TAKE 1 TABLET EVERY MORNING 10/26/2016 12/03/2017 Inactive ceftriaxone 500 mg s olution for injection RxNorm: 0850509 1 Milliliter(s) Inj 09/27/2016 09/27/2016 In active Phenergan with Codei ne Syrup RxNorm: 5 Milliliter(s) PO QID as n eeded 09/27/2016 10/29/2016 In active Tessalon Perles 100 mg capsule RxNorm: 325199 1-2 Capsule(s) PO TID as needed cough 09/27/2016 09/29/2016 In active Kenalog 40 mg/mL nori pension for injection RxNorm: 3191913 1 Milliliter(s) Inj 09/27/2016 09/27/2016 In active Flagyl 500 mg tablet RxNorm: 519384 1 Tablet(s) PO TID 2016 08/05/2016 Inactive Lasix 40 mg tablet RxNorm: 966916 TAKE 1 TABLET DAILY 07/26/2016 04/23/2017 Inactive Zithromax 250 mg tablet RxNorm: 184525 [address] day and 1 tab po on day 2-5 Tablet(s) PO 03/28/2016 03/27/2016 Inactive zpack x 1 Zithromax 250 mg tablet RxNorm: 066259 [address] day and 1 tab po on day 2-5 Tablet(s) PO 03/28/2016 04/01/2016 Inactive zpack x 1 Flagyl 500 mg tablet RxNorm: 617840 1 Tablet(s) PO TID 02/07/2016 02/06/2016 Inactive Flagyl 500 mg tablet RxNorm: 308295 1 Tablet(s) PO TID 02/07/2016 02/16/2016 Inactive Zyrtec-D 5 mg-120 mg tablet,extended release RxNorm: 2616468 1 Tablet(s) PO daily as needed allergies 11/23/2015 10/31/2018 Inactive Imodium A-D 2 mg tablet RxNorm: 594197 1/2 Tablet(s) PO daily 11/23/2015 10/31/2018 Inactive Mucinex 600 mg table t, extended release RxNorm: 830252 1 Tablet(s) PO BID as needed 11/23/2015 01/21/2016 In active Lasix 40 mg tablet RxNorm: 719080 TAKE 1 TABLET DAILY 11/01/2015 07/25/2016 Inactive Klor-Con M20 mEq tab let,extended release RxNorm: 6574870 TAKE 1 TABLET EVERY MORNING 11/01/2015 10/25/2016 Inactive Flonase Allergy Reli ef 50 mcg/actuation nasal spray,suspension RxNorm: 1748707 2 Jackpot NASAL daily 07/20/2015 10/31/2018 Inactive Kenalog 40 mg/mL nori pension for injection RxNorm: 4180386 Milliliter(s) Inj 02/02/2015 02/02/2015 In active Plavix 75 mg tablet RxNorm: 961603 1 Tablet(s) PO daily 10/05/2014 03/07/2015 Inactive Klor-Con M20 mEq tab let,extended release RxNorm: 764032 1 Tablet(s) PO QAM 10/05/2014 10/31/2015 In active Lasix 40 mg tablet RxNorm: 627126 1 Tablet(s) PO daily 10/05/2014 10/31/2015 Inactive Crestor 5 mg tablet RxNorm: 143143 1/2 Tablet(s) PO daily 10/05/2014 10/31/2018 Inactive Efudex 5 % topical c ream RxNorm: 935426 1 Application TOP BID x 2 weeks, allow healing x 1 -2 weeks, then reuse 10/05/2014 07/05/2015 Inactive metoprolol tartrate 100 mg tablet RxNorm: 667569 1 Tablet(s) PO BID 10/05/2014 12/28/2015 Inactive Pradaxa 150 mg capsule RxNorm: 6864733 1 Capsule(s) PO BID 10/05/2014 04/09/2017 Inactive amlodipine 10 mg tablet RxNorm: 541427 1/2 Tablet(s) PO QAM 10/05/2014 07/05/2015 Inactive Efudex 5 % topical c ream RxNorm: 023566 1 Application TOP BID x 2 weeks, allow healing x 1 -2 weeks, then reuse 09/22/2014 10/04/2014 Inactive Klor-Con M20 mEq tab let,extended release RxNorm: 119263 1 Tablet(s) PO QAM 09/22/2014 10/04/2014 In active Lasix 40 mg tablet RxNorm: 260351 1 Tablet(s) PO daily 09/22/2014 10/04/2014 Inactive duloxetine 20 mg cap marck,delayed release RxNorm: 528135 1 Capsule(s) PO BID No Start Date Active Centrum Silver oral RxNorm: 66491 oral No Start Date Active magnesium 250 mg tablet RxNorm: 1 Tablet(s) PO daily No Start Date Active loratadine 10 mg tablet RxNorm: 725783 1 Tablet(s) PO daily No Start Date Active Vitamin D3 5,000 uni t tablet RxNorm: 635632 1 Tablet(s) PO BID No Start Date Active Flomax 0.4 mg capsule RxNorm: 180672 1 Capsule(s) PO QPM No Start Date Active Glucosamine Chondroi t Complx Advan oral RxNorm: oral No Start D ate Active hydralazine 25 mg ta blet RxNorm: 739893 1 Tablet(s) PO Q6 as needed No Start Date 11/28/2018 Inactive Cartia XT 180 mg cap marck,extended release RxNorm: 812066 2 Capsule(s) PO daily No Start Date 10/31/2018 Inactive Lactobacillus acidop hilus 1 billion cell tablet RxNorm: 400392 1 Tablet(s) PO BID No Start Date 12/09/2018 Inactive spironolactone 25 mg tablet RxNorm: 009005 1 Tablet(s) PO daily No Start Date 11/28/2018 Inactive cetirizine 10 mg tablet RxNorm: 7808433 1 Tablet(s) PO daily at lunch No Start Date 10/31/2018 Inactive Canasa 1,000 mg rect al suppository RxNorm: 877471 [address] QHS [address] seymour No Start Date 10/31/2018 Inactive Lialda 1.2 gram tabl et,delayed release RxNorm: 988354 1 Tablet(s) PO QHS -P rescried by Dr. Seymour No Start Date 10/31/2018 Inactive melatonin 1 mg tablet RxNorm: 412764 1 Tablet(s) PO daily No Start Date 10/31/2018 Inactive Plavix 75 mg tablet RxNorm: 751435 1 Tablet(s) PO daily No Start Date 10/04/2014 Inactive Klor-Con M20 mEq tab let,extended release RxNorm: 032020 1 Tablet(s) PO QAM No Start Date 09/21/2014 Inactive diphenoxylate-atropi ne 2.5 mg-0.025 mg tablet RxNorm: 6937425 1/2 Tablet(s) PO Q12 H No Start Date 10/31/2018 Inactive Eliquis 5 mg tablet RxNorm: 7983510 1 Tablet(s) PO BID Dr Avila No Start Date 10/29/2018 Inactive diltiazem CD 120 mg capsule,extended release 24 hr RxNorm: 425601 1 Capsule(s) PO daily No Start Date 11/28/2018 Inactive diclofenac sodium 75 mg tablet,delayed release RxNorm: 711437 1 Tablet(s) PO TID as needed No Start Date 12/09/2018 Inactive Coumadin 2 mg tablet RxNorm: 759755 1 Tablet(s) PO 4 times a week T TH Sat S un No Start Date 11/28/2018 Inactive aspirin 81 mg tablet RxNorm: 010435 1 Tablet(s) PO daily No Start Date 11/21/2018 Inactive magnesium 200 mg (as magnesium oxide) tablet RxNorm: 702107 1 Tablet(s) PO daily No Start Date 11/01/2018 Inactive Emla topical RxNorm: 91904 topical No Start Date 12/09/2018 Inactive Imodium oral RxNorm: oral No Start Date 11/21 Inactive Colace 100 mg capsule RxNorm: 6703741 1 Capsule(s) PO BID No Start Date 12/09/2018 Inactive Lasix 40 mg tablet RxNorm: 277123 1 Tablet(s) PO daily No Start Date 09/21/2014 Inactive amlodipine 10 mg tablet RxNorm: 511981 1/2 Tablet(s) PO QAM No Start Date 10/04/2014 Inactive Crestor 5 mg tablet RxNorm: 473623 1/2 Tablet(s) PO daily No Start Date 10/04/2014 Inactive Flonase Allergy Reli ef 50 mcg/actuation nasal spray,suspension RxNorm: 1 Jackpot NASAL daily No Start Date 07/19/2015 Inactive aspirin 81 mg capsul e,delayed release RxNorm: 271848 1 Capsule(s) PO daily No Start Date 10/31/2018 Inactive losartan 25 mg tablet RxNorm: 496089 1 Tablet(s) PO QPM at supper No Start Date 10/31/2018 Inactive metoprolol tartrate 100 mg tablet RxNorm: 695924 1 Tablet(s) PO BID No Start Date 10/04/2014 Inactive ipratropium-albutero l 0.5 mg-3 mg(2.5 mg base)/3 mL nebulization soln RxNorm: 7489537 1 INH Q4H No Start Date 10/31/2018 Inactive digoxin 250 mcg tablet RxNorm: 274428 1 Tablet(s) PO daily No Start Date 10/31/2018 Inactive Probiotic 4X oral RxNorm: 2855065 oral No Start Date 07/06/2015 Inactive pantoprazole 40 mg t ablet,delayed release RxNorm: 246462 1 Tablet(s) PO daily No Start Date 11/28/2018 Inactive Probiotic oral RxNorm: 6205 oral No Start Date 10/31/2018 Inactive Pradaxa 150 mg capsule RxNorm: 0536420 1 Capsule(s) PO BID No Start Date 10/04/2014 Inactive Medication Administered Medication Codes Instruc tions Start Date Status Kenalog 40 mg/mL suspension for injection RxNorm: 6984589 1Milliliter 07/08/2018 N o longer Active ceftriaxone 500 mg solution for injection RxNorm: 5259461 02/28/2018 No longer A ctive Kenalog 40 mg/mL suspension for injection RxNorm: 4932681 Milliliter 02/26/2018 No longer Active Kenalog 40 mg/mL suspension for injection RxNorm: 6425528 Milliliter 06/29/2017 No longer Active ceftriaxone 500 mg solution for injection RxNorm: 0887517 02/06/2017 No longer A ctive Kenalog 40 mg/mL suspension for injection RxNorm: 3637408 1Milliliter 09/27/2016 N o longer Active ceftriaxone 500 mg solution for injection RxNorm: 1330267 1Milliliter 09/27/2016 N o longer Active Kenalog 40 mg/mL suspension for injection RxNorm: 0323540 Milliliter 02/02/2015 No longer Active Immunizations Vaccine [...] Observation Code Item Item Code Result Date Electrolytes Ord62 NA 139 mEq/L 11/22/2018 Electrolytes [...] 31.4 pg 10/23/2017 Cbc With Differential Ord2 [place]% 8.5 % 10/23/2017 Cbc With Differential Ord2 [...] 2.73 K/ul 10/23/2017 Cbc With Differential Ord2 [place] ABS# 0.9 K/ul 10/23/2017 Cbc With Differential Ord2 Eos ABS# 0.6 K/ul 10/23/2017 Cbc With Differential Ord2 Baso ABS# 0.0 K/ul 10/23/2017 Digoxin Ord9 DIGOXIN 1.0 NG/ML 10/23/2017 Lipid Ord30 CHOL 108 mg/dL 10/23/2017 Lipid Ord30 HDL 39.0 mg/dl 10/23/2017 Lipid Ord30 TRIG 175 mg/dL 10/23/2017 Lipid Ord30 LDL 34 mg/dL 10/23/2017 Lipid Ord30 C/HDL 2.8 Ratio 10/23/2017 Comp Metabolic Mao156 NA 140 mEq/L 10/23/2017 Comp Metabolic Aza136 K 4.1 mEq/L 10/23/2017 Comp Metabolic Lcg050 CL 102 mEq/L 10/23/2017 Comp Metabolic Qsr398 CO2 30.0 mEq/L 10/23/2017 Comp Metabolic Mph437 AN ION GAP 12 10/23/2017 Comp Metabolic Tpc345 GL UCOSE 124 mg/dL 10/23/2017 Comp Metabolic Rqo773 Cr eat 1.1 mg/dL 10/23/2017 Comp Metabolic Wum840 eG FR 71 ml/min/1.73m2 10/23 Comp Metabolic Yjy336 BUN 11 mg/dL 10/23/2017 Comp Metabolic Crp181 B/ C Ratio 10.2 Ratio 10/23/2017 Comp Metabolic Fpw092 CA LCIUM 9.3 mg/dL 10/23/2017 Comp Metabolic Twg098 AL K PHOS 72 U/L 10/23/2017 Comp Metabolic Lqu058 T(SGOT) 21 U/L 10/23/2017 Comp Metabolic Aix892 AL T(SGPT) 17 U/L 10/23/2017 Comp Metabolic Jkb249 BI LI T 0.8 mg/dL 10/23/2017 Comp Metabolic Ttr667 AL BUMIN 4.3 g/dL 10/23/2017 Comp Metabolic Ion105 TP RO 7.4 g/dL 10/23/2017 Comp Metabolic Oer367 GL OB 3.1 g/dL 10/23/2017 Comp Metabolic Iyq336 A/ G Ratio 1.4 Ratio 10/23/2017 Comp Metabolic Vew673 Os mo 280 mOsmo 10/23/2017 Tsh Ord6 TSH (3rd IS) 3.37 uIU/mL 10/23/2017 Test(s) Not Perfromed EOD0309 Test(s) Not Performed Test(s) Not Performed. See Below: 10/23/2017 Test(s) Not Perfromed [id number] TEST NAME PSA 10/23/2017 Test(s) Not Perfromed [id number] Rejection Reason PSA Performed yearly at Dr. Stone's Office 10/23/2017 Test(s) Not Perfromed [id number] COMMENT N/A 10/23/2017 Test(s) Not Perfromed [id number] [employer]draulic Billet [employer] Gian Johnson 10/23/2017 Comp Metabolic Dgz786 NA 137 mEq/L 03/21/2016 Comp Metabolic Pmu174 K 4.6 mEq/L 03/21/2016 Comp Metabolic Kpu762 CL 101 mEq/L 03/21/2016 Comp Metabolic Cdp632 CO2 31.0 mEq/L 03/21/2016 Comp Metabolic Ugr624 AN ION GAP 10 03/21/2016 Comp Metabolic Cpd325 GL UCOSE 106 mg/dL 03/21/2016 Comp Metabolic Acu567 Cr eat 1.1 mg/dL 03/21/2016 Comp Metabolic Fkg019 eG FR 69 ml/min/1.73m2 03/21 Comp Metabolic Ejx003 BUN 11 mg/dL 03/21/2016 Comp Metabolic Zjy978 B/ C Ratio 9.9 Ratio 03/21/2016 Comp Metabolic Blx725 CA LCIUM 9.5 mg/dL 03/21/2016 Comp Metabolic Dpu305 AL K PHOS 88 U/L 03/21/2016 Comp Metabolic Rpl994 T(SGOT) 21 U/L 03/21/2016 Comp Metabolic Vbo529 AL T(SGPT) 15 U/L 03/21/2016 Comp Metabolic Cxk371 BI LI T 0.7 mg/dL 03/21/2016 Comp Metabolic Dpl564 AL BUMIN 4.2 g/dL 03/21/2016 Comp Metabolic Gio337 TP RO 7.9 g/dL 03/21/2016 Comp Metabolic Ute581 GL OB 3.7 g/dL 03/21/2016 Comp Metabolic Ctf215 A/ G Ratio 1.1 Ratio 03/21/2016 Comp Metabolic Dkg127 Os mo 274 mOsmo 03/21/2016 Lipid Ord30 [...] 31.3 pg 03/21/2016 Cbc With Differential Ord2 [place]% 10.3 % 03/21/2016 Cbc With Differential Ord2 [...] 2.51 K/ul 03/21/2016 Cbc With Differential Ord2 [place] ABS# 1.2 K/ul 03/21/2016 Cbc With Differential Ord2 Eos ABS# 0.7 K/ul 03/21/2016 Cbc With Differential Ord2 Baso ABS# 0.0 K/ul 03/21/2016 Clostridium Diff Tox A/B Mpk613 Cdiff Negative 02/01/2016 Culture Mrsa [id number] MRSA CULTURE SEE NOTES 04/09/2015 Digoxin Ord9 [...] Ord9 DIGOXIN 1.0 NG/ML 03/11/2015 Comp Metabolic Vwv739 NA 142 mEq/L 03/11/2015 Comp Metabolic Pao823 K 4.4 mEq/L 03/11/2015 Comp Metabolic Mdh260 CL 107 mEq/L 03/11/2015 Comp Metabolic Zzi413 CO2 27.0 mEq/L 03/11/2015 Comp Metabolic Gfh055 AN ION GAP 12 03/11/2015 Comp Metabolic Cyh552 GL UCOSE 106 mg/dL 03/11/2015 Comp Metabolic Nhm331 Cr eat 1.1 mg/dL 03/11/2015 Comp Metabolic Iyp868 eG FR 68 ml/min/1.73m2 03/11 Comp Metabolic Tlz055 BUN 16 mg/dL 03/11/2015 Comp Metabolic Zjb331 B/ C Ratio 14.3 Ratio 03/11/2015 Comp Metabolic Htt754 CA LCIUM 9.5 mg/dL 03/11/2015 Comp Metabolic Gck995 AL K PHOS 82 U/L 03/11/2015 Comp Metabolic Nvh657 T(SGOT) 20 U/L 03/11/2015 Comp Metabolic Gda747 AL T(SGPT) 17 U/L 03/11/2015 Comp Metabolic Dyb518 BI LI T 0.4 mg/dL 03/11/2015 Comp Metabolic Zlc063 AL BUMIN 4.0 g/dL 03/11/2015 Comp Metabolic Nsj592 TP RO 6.9 g/dL 03/11/2015 Comp Metabolic Nid803 GL OB 2.9 g/dL 03/11/2015 Comp Metabolic Ylw620 A/ G Ratio 1.4 Ratio 03/11/2015 Comp Metabolic Cwx653 Os mo 285 mOsmo 03/11/2015 Metabolic Ord15 [...] inspection of skin Location: face 11/01/2018 right yazdanism, forehead, l eft yazdanism - irrirated actinic keratosis Full Exam - [...] inspection of skin Location: face 04/23/2018 right yazdanism, forehead, l eft yazdanism - irrirated actinic keratosis Full Exam - [...] inspection of skin Location: face 10/22/2017 right yazdanism, forehead, l eft yazdanism - irrirated actinic keratosis Full Exam - [...] inspection of skin Location: face 03/21/2016 right yazdanism, forehead, l eft yazdanism - irrirated actinic keratosis Full Exam - [...] inspection of skin Location: face 11/23/2015 right yazdanism, left yazdanism - irrirated actinic keratosis Full Exam - [...] inspection of skin Location: face 07/06/2015 right yazdanism, forehead, l eft yazdanism - irrirated actinic keratosis Full Exam - [...] CPT-4: J3301 07/08/2018 THER/PROPH/DIAG INJ SC/IM CPT-4: 09949 07/08/2018 THER/PROPH/DIAG INJ SC/IM CPT-4: 16284 02/28/2018 ROCEPHIN, PER 250 MG CPT-4: J0696 02/28/2018 THER/PROPH/DIAG INJ SC/IM CPT-4: 78714 02/26/2018 TRIAMCINOLONE ACET I [place] NOS CPT-4: J3301 02/26/2018 PPPS, SUBSEQ VISIT CPT- 4: G0439 2017 TRIAMCINOLONE ACET I [place] NOS CPT-4: J3301 06/29/2017 THER/PROPH/DIAG INJ SC/IM CPT-4: 71714 02/06/2017 ROCEPHIN, PER 250 MG CPT-4: J0696 02/06/2017 ROCEPHIN, PER 250 MG CPT-4: J0696 09/27/2016 TRIAMCINOLONE ACET I [place] NOS CPT-4: J3301 09/27/2016 THER/PROPH/DIAG INJ SC/IM CPT-4: 89499 09/27/2016 DESTRUCT PREMALG LESION CPT-4: 15398 10/14/2015 DESTRUCT PREMALG LESION CPT-4: 45406 07/20/2015 DESTRUCT PREMALG LESION CPT-4: 43885 07/06/2015 DESTRUCT PREMALG LES 2-14 CPT-4: 72037 07/06/2015 TRIAMCINOLONE ACET I [place] NOS CPT-4: J3301 02/02/2015 Vital Signs Date Vital 12/10/2018 Blood Pressure 1: 112/68 Code: 8480-6 BMI: 27.2 Code: 51897-3 Heart Rate 1: 76 bpm Height: 5'8" SpO2: 94% Weight: 179 lbs 11/22/2018 Blood Pressure 1: 110/58 Code: 8480-6 Heart Rate 1: 74 bpm Height: 5'8" SpO2: 98% Weight: 11/01/2018 Blood Pressure 1: 120/70 Code: 8480-6 Heart Rate 1: 72 bpm Height: SpO2: 98% Weight: 07/08/2018 Blood Pressure 1: 134/64 Code: 8480-6 BMI: 30.6 Code: 12212-7 Heart Rate 1: 79 bpm Height: 5'8" SpO2: 98% Weight: 201 lbs 06/04/2018 Blood Pressure 1: 130/62 Code: 8480-6 BMI: 30.6 Code: 80225-1 Heart Rate 1: 88 bpm Height: 5'8" SpO2: 97% Weight: 201 lbs 04/23/2018 Blood Pressure 1: 130/72 Code: 8480-6 BMI: 30.1 Code: 37742-5 Heart Rate 1: 74 bpm Height: 5'8" SpO2: 97% Weight: 198 lbs 02/28/2018 Blood Pressure 1: 124/72 Code: 8480-6 BMI: 30.0 Code: 14483-9 Heart Rate 1: 69 bpm Height: 5'8" SpO2: 97% Temperature: 36.6 (C ) / 97.8 (F) Weight: 197 lbs 02/19/2018 Blood Pressure 1: 128/76 Code: 8480-6 BMI: 30.0 Code: 01392-4 Heart Rate 1: 66 bpm Height: 5'8" SpO2: 97% Weight: 197 lbs 11/09/2017 Blood Pressure 1: 130/74 Code: 8480-6 BMI: 29.3 Code: 02232-8 Heart Rate 1: 81 bpm Height: 5'8" SpO2: 98% Temperature: 36.6 (C ) / 97.9 (F) Weight: 193 lbs 10/22/2017 Blood Pressure 1: 132/82 Code: 8480-6 BMI: 29.0 Code: 36193-3 Heart Rate 1: 80 bpm Height: 5'8" SpO2: 98% Weight: 191 lbs 2017 Blood Pressure 1: 142/68 Code: 8480-6 BMI: 28.7 Code: 04715-9 Heart Rate 1: 62 bpm Height: 5'8" SpO2: 98% Waist Measure (cm): 102 cm Weight: 189 lbs 07/23/2017 Blood Pressure 1: 138/84 Code: 8480-6 BMI: 29.0 Code: 29523-6 Heart Rate 1: 69 bpm Height: 5'8" SpO2: 98% Weight: 191 lbs 07/09/2017 Blood Pressure 1: 120/82 Code: 8480-6 BMI: 29.2 Code: 48267-2 Heart Rate 1: 80 bpm Height: 5'8" SpO2: 98% Weight: 192 lbs 06/29/2017 Blood Pressure 1: 140/82 Code: 8480-6 BMI: 29.5 Code: 86687-6 Heart Rate 1: 83 bpm Height: 5'8" SpO2: 98% Weight: 194 lbs 04/23/2017 Blood Pressure 1: 132/74 Code: 8480-6 BMI: 28.4 Code: 18434-8 Heart Rate 1: 78 bpm Height: 5'8" SpO2: 97% Weight: 187 lbs 04/10/2017 Blood Pressure 1: 126/68 Code: 8480-6 BMI: 29.5 Code: 93115-3 Heart Rate 1: 68 bpm Height: 5'8" SpO2: 92% Temperature: 37.5 (C ) / 99.5 (F) Weight: 194 lbs 03/29/2017 Blood Pressure 1: 116/76 Code: 8480-6 BMI: 29.6 Code: 22286-6 Heart Rate 1: 61 bpm Height: 5'8" SpO2: 98% Weight: 195 lbs 02/06/2017 Blood Pressure 1: 130/74 Code: 8480-6 BMI: 30.4 Code: 05674-3 Heart Rate 1: 71 bpm Height: 5'8" SpO2: 98% Weight: 200 lbs 11/06/2016 Blood Pressure 1: 140/74 Code: 8480-6 BMI: 29.5 Code: 80870-2 Heart Rate 1: 76 bpm Height: 5'8" SpO2: 96% Weight: 194 lbs 09/27/2016 Blood Pressure 1: 138/78 Code: 8480-6 BMI: 29.6 Code: 70552-3 Heart Rate 1: 68 bpm Height: 5'8" SpO2: 97% Weight: 195 lbs 03/21/2016 Blood Pressure 1: 148/82 Code: 8480-6 BMI: 30.6 Code: 82895-0 Heart Rate 1: 67 bpm Height: 5'8" SpO2: 98% Weight: 201 lbs 02/01/2016 Blood Pressure 1: 128/86 Code: 8480-6 BMI: 30.3 Code: 66932-9 Heart Rate 1: 84 bpm Height: 5'8" SpO2: 96% Weight: 199 lbs 11/23/2015 Blood Pressure 1: 132/76 Code: 8480-6 BMI: 30.4 Code: 29568-5 Heart Rate 1: 81 bpm Height: 5'8" SpO2: 98% Weight: 200 lbs 10/14/2015 Blood Pressure 1: 120/80 Code: 8480-6 BMI: 30.4 Code: 32170-4 Heart Rate 1: 87 bpm Height: 5'8" SpO2: 97% Weight: 200 lbs 07/20/2015 Blood Pressure 1: 132/84 Code: 8480-6 BMI: 31.0 Code: 23747-7 Heart Rate 1: 78 bpm Height: 5'8" SpO2: 96% Weight: 204 lbs 07/06/2015 Blood Pressure 1: 130/78 Code: 8480-6 BMI: 31.0 Code: 36860-6 Heart Rate 1: 80 bpm Height: 5'8" SpO2: 98% Weight: 204 lbs 03/29/2015 Blood Pressure 1: 132/82 Code: 8480-6 BMI: 29.6 Code: 57165-8 Heart Rate 1: 76 bpm Height: 5'8" SpO2: 96% Weight: 195 lbs 03/08/2015 Blood Pressure 1: 126/84 Code: 8480-6 BMI: 30.2 Code: 23702-9 Heart Rate 1: 101 bpm Height: 5'8" SpO2: 98% Weight: 198 lbs 8 oz 02/02/2015 Blood Pressure 1: 132/86 Code: 8480-6 Heart Rate 1: 86 bpm SpO2: 98% Temperature: 36.6 (C ) / 97.8 (F) Weight: 198 lbs 09/22/2014 Blood Pressure 1: 128/80 Code: 8480-6 BMI: 29.3 Code: 55379-9 Heart Rate 1: 85 bpm Height: 5'8" [...] Encounters Encounter Performer Loca tion Codes Date ([id number]) 15351 EST. P ATIENT, LEVEL IV Diagnosis: Chronic atrial fibrillation[ICD10: I48.2] Diagnosis: Hypo-osmolality and hyponatremia[ICD10: E87.1] Diagnosis: Muscle weakness (generalized)[ICD10: M62.81] Diagnosis: Other emphysema[ICD10: J43.8] Lucrecia Parsons MD, [facility] CPT- 4: 55667 12/10/2018 ([id number]) 12549 EST. P ATIENT, LEVEL IV Diagnosis: Hypo-osmolality and hyponatremia[ICD10: E87.1] Diagnosis: Muscle weakness (generalized)[ICD10: M62.81] Diagnosis: Other emphysema[ICD10: J43.8] Lucrecia Parsons MD, [facility] CPT- 4: 17556 11/22/2018 34620 EST. PATIENT, LEVEL V Diagnosis: Muscle weakness (generalized)[ICD10: M62.81] Diagnosis: Rash and other nonspecific skin eruption[ICD10: R21] Diagnosis: Other hemorrhoids[ICD10: K64.8] Diagnosis: Hypo-osmolality and hyponatremia[ICD10: E87.1] Diagnosis: Other emphysema[ICD10: J43.8] Diagnosis: Paroxysmal atrial fibrillation[ICD10: I48.0] Diagnosis: Encounter for follow-up examination after completed treatment for conditions other than malignant neoplasm[ICD10: Z09] Diagnosis: Essential (primary) hypertension[ICD10: I10] Lucrecia Parsons MD, [facility] CPT-4: 47365 11/01/2018 55952 EST. PATIENT, LEVEL IV Diagnosis: Other acute sinusitis[ICD10: J01.80] Diagnosis: Other allergic rhinitis[ICD10: J30.89] Diagnosis: Other mucopurulent conjunctivitis, right eye[ICD10: H10.021] Sandra Parsons MD, [facility] CPT-4: 52180 07/08/2018 99438 EST. PATIENT, LEVEL III Diagnosis: Cellulitis of right upper limb[ICD10: L03.113] Sandra Parsons MD, [facility] CPT-4: 45957 06/04/2018 ([id number]) 31126 EST. P ATIENT, LEVEL IV Diagnosis: Essential (primary) hypertension[ICD10: I10] Diagnosis: Chronic atrial fibrillation[ICD10: I48.2] Diagnosis: Mixed hyperlipidemia[ICD10: E78.2] Steffany Parsons MD, [facility] CPT- 4: 34734 04/23/2018 65628 EST. PATIENT, LEVEL IV Diagnosis: Other acute sinusitis[ICD10: J01.80] Diagnosis: Other allergic rhinitis[ICD10: J30.89] Sandra Parsons MD, [facility] CPT-4: 73707 02/28/2018 91667 EST. PATIENT, LEVEL IV Diagnosis: Other acute sinusitis[ICD10: J01.80] Diagnosis: Other allergic rhinitis[ICD10: J30.89] Sandra Parsons MD, [facility] CPT-4: 70127 02/19/2018 64245 EST. PATIENT, LEVEL III Diagnosis: Acute laryngopharyngitis[ICD10: J06.0] Diagnosis: Other allergic rhinitis[ICD10: J30.89] Sandra Parsons MD, [facility] CPT-4: 03703 11/09/2017 ([id number]) 26265 EST. P ATIENT, LEVEL IV Diagnosis: Essential (primary) hypertension[ICD10: I10] Diagnosis: Chronic atrial fibrillation[ICD10: I48.2] Steffany Parsons MD, [facility] CPT-4: 56906 10/22/2017 ([id number]) 08765 EST. P ATIENT, LEVEL IV Diagnosis: Essential (primary) hypertension[ICD10: I10] Diagnosis: Chronic atrial fibrillation[ICD10: I48.2] Diagnosis: Cough[ICD10: R05] Steffany Parsons MD, [facility] CPT-4: 21757 07/23/2017 ([id number]) 02579 EST. P ATIENT, LEVEL III Diagnosis: Cough[ICD10: R05] Diagnosis: Other allergic rhinitis[ICD10: J30.89] Diagnosis: Chronic obstructive pulmonary disease with (acute) exacerbation[ICD10: J44.1] Lucrecia Parsons MD, [facility] CPT-4: 97975 07/09/2017 ([id number]) 83581 EST. P ATIENT, LEVEL III Diagnosis: Cough[ICD10: R05] Diagnosis: Other allergic rhinitis[ICD10: J30.89] Diagnosis: Chronic obstructive pulmonary disease with (acute) exacerbation[ICD10: J44.1] Lucrecia Parsons MD, [facility] CPT-4: 26207 06/29/2017 ([id number]) 55533 EST. P ATIENT, LEVEL III Diagnosis: Essential (primary) hypertension[ICD10: I10] Diagnosis: Cough[ICD10: R05] Steffany Parsons MD, [facility] CPT-4: 12889 04/23/2017 ([id number]) 22637 EST. P ATIENT, LEVEL IV Diagnosis: Hemoptysis[ICD10: R04.2] Diagnosis: Essential (primary) hypertension[ICD10: I10] Diagnosis: Chronic obstructive pulmonary disease with acute lower respiratory infection[ICD10: J44.0] Steffany Parsons MD, [facility] CPT-4: 37757 04/10/2017 04179 EST. PATIENT, LEVEL III Diagnosis: Acute laryngopharyngitis[ICD10: J06.0] Diagnosis: Other allergic rhinitis[ICD10: J30.89] Sandra Parsons MD, [facility] CPT-4: 38713 03/29/2017 ([id number]) 62860 EST. P ATIENT, LEVEL III Diagnosis: Pneumonia due to Mycoplasma pneumoniae[ICD10: J15.7] Diagnosis: Cough[ICD10: R05] Diagnosis: Other chest pain[ICD10: R07.89] Steffany Parsons MD, [facility] CPT-4: 03376 02/06/2017 56649 EST. PATIENT, LEVEL IV Diagnosis: Cough[ICD10: R05] Diagnosis: Shortness of breath[ICD10: R06.02] Diagnosis: Gastro-esophageal reflux disease without esophagitis[ICD10: K21.9] Sandra Parsons MD, [facility] CPT-4: 33729 11/06/2016 98338 EST. PATIENT, LEVEL IV Diagnosis: Other allergic rhinitis[ICD10: J30.89] Diagnosis: Acute bronchitis due to other specified organisms[ICD10: J20.8] Sandra Parsons MD, [facility] CPT-4: 98793 09/27/2016 ([id number]) 34745 EST. P ATIENT, LEVEL IV Diagnosis: Essential (primary) hypertension[ICD10: I10] Diagnosis: Chronic atrial fibrillation[ICD10: I48.2] Diagnosis: Encounter for therapeutic drug level monitoring[ICD10: Z51.81] Steffany Parsons MD, [facility] CPT-4: 29904 03/21/2016 ([id number]) 48329 EST. 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 P ATIENT, LEVEL III Diagnosis: Allergic rhinitis due to pollen[ICD10: J30.1] Diagnosis: Actinic keratosis[ICD10: L57.0] Lucrecia Parsons MD, [facility] CPT- 4: 56336 10/14/2015 ([id number]) 84341 EST. P ATIENT, LEVEL IV Diagnosis: Essential (primary) hypertension[ICD10: I10] Diagnosis: Chronic atrial fibrillation[ICD10: I48.2] Steffany Parsons MD, [facility] CPT-4: 00467 07/06/2015 40763 EST. PATIENT, LEVEL III Diagnosis: Essential (primary) hypertension[ICD10: I10] Diagnosis: Chronic atrial fibrillation[ICD10: I48.2] Diagnosis: Shortness of breath[ICD10: R06.02] Diagnosis: Melena[ICD10: K92.1] Sandra Parsons MD, [facility] CPT-4: 64429 03/29/2015 ([id number]) 88467 EST. P ATIENT, LEVEL IV Diagnosis: Essential (primary) hypertension[ICD10: I10] Diagnosis: Chronic atrial fibrillation[ICD10: I48.2] Diagnosis: Cough[ICD10: R05] Steffany Parsons MD, [facility] CPT-4: 54705 03/08/2015 ([id number]) 83930 EST. P ATIENT, LEVEL III Diagnosis: Other seasonal allergic rhinitis[ICD10: J30.2] Diagnosis: Other lesions of oral mucosa[ICD10: K13.79] [facility] CPT-4: 31928 02/02/2015 ([id number]) OFFICE [facility] - LEVEL 4 Diagnosis: ESSENTIAL HYPERTENSION[ICD9: 401.9] Diagnosis: HYPERLIPIDEMIA[ICD9: 272.4] Diagnosis: ACTINIC KERATOSIS[ICD9: 702.0] [facility] CPT-4: 86967 09/22/2014 Plan of Care Planned Activity Notes [...] finish home health PT next week 12/10/2018 Patient Education: Patient Medication Summary Completed 12/10/2018 Care Plan: Comp Metabolic Pending 12/10/2018 Care Plan: Pt Pending 12/10/2018 Visit Plan: Low sodium -repeat labs today-continue gatorade Weakness -post prolonged hospitalization -patient is doing well -transferring with stand by assist -passed home safety evaluation -plans to d/c to home on 12/04/18 Emphysema- patient is off oxygen and breathing treatments decreased to three times daily -continues to f/u with Dr Mijares 11/22/2018 Appointment: Lucrecia Yeager WPtel: [address] [place], [place] [phone] (30 min) [facility] 11/22/2018 Patient Education: Patient Medication Summary Completed 11/22/2018 Visit Plan: Hospital follow up -pul monary hemorrhage with pneumonia-continue with oxygen at 2 liters -keep appt with Dr Mijares as scheduled -continue breathing treatments as ordered Generalized weakness -due to prolonged hospitalization -he is doing PT/OT at [facility] -he did stand for 10 seconds twice [...] Education: Patient Medication Summary Completed 11/01/2018 Appointment: [place] Steffany WPtel: [phone] [facility] (15 min) Moderate 10/22/2018 Appointment: JaquelineJudyy WPtel: [phone] [facility] (15 min) Moderate 09/30/2018 Appointment: JaquelineSteffany rosa WPtel: [phone] [facility] (15 min) Moderate 09/19/2018 Visit Plan: Sinusitis [...] daily. 07/08/2018 Appointment: Sandra Tim WPtel: [phone] [facility] (15 min) Moderate 07/08/2018 Patient Education: Patient [...] warmth, discharge. 06/04/2018 App[facility]ment: [phone] (30 min) Complex 06/04/2018 Patient Education: Patient Medication Summary Completed 06/04/2018 Visit Plan: Hypertension - well jamil henry [...] time. 04/23/2018 Appointment: [facility] Parsons [phone] (15 min) Moderate 04/23/2018 Patient Education: Patient [...] allergy spray. 02/28/2018 Appointment: Sandra Tim WPtel: [facility]5 [facility] (15 min) Moderate 02/28/2018 Patient Education: [...] allergy spray. 02/19/2018 Appointment: Sandra Tim WPtel: [facility]5 [facility]66[facility] (15 min) Moderate 02/19/2018 Patient [...] allergy spray. 11/09/2017 Appointment: Sandra Tim WPtel: [facility]0 [facility] (15 min) Moderate 11/09/2017 Patient Education: Patient Medication Summary Completed 11/09/2017 Visit Plan: Hypertension - well con dawsoned - continue with current medications, continue with [...] uncontrolled. 10/22/2017 Appointment: Steffany Parsons [facility]Ptel[phone] (15 min) Moderate 10/22/2017 Patient Education: Patient [...] Completed 2017 Visit Plan: Hypertension - well con dawsoned - continue with current medications, continue with [...] spray) 07/23/2017 Appointment: Steffany Parsons WPtel: [phone] [facility] (15 min) Moderate 07/23/2017 Patient Education: Patient Medication Summary Completed 07/23/2017 Visit Plan: COPD EXACERBATION - YIELD CLERK D is a chronic problem for this [...] changes. 07/09/2017 Appointment: Lucrecia Yeager WPtel: [phone] [phone] (30 min) Complex 07/09/2017 Patient Education: Patient [...] changes. 06/29/2017 Appointment: Lucrecia Yeager WPtel: [phone] [phone] (15 min) Moderate 06/29/2017 Patient Education: Patient Medication Summary Completed 06/29/2017 Appointment: Steffany Parsons WPtel: [phone] [facility] (15 min) Moderate 04/30/2017 Visit Plan: [...] treatments. 04/23/2017 Appointment: Steffany Parsons WPtel: [phone] [facility] (15 min) Moderate 04/23/2017 Patient Education: Patient Medication Summary Completed 04/23/2017 Visit Plan: Hemoptysis and COPD exa cerbation - continue with antibiotics, rx for antifungal tablet and suspension. chest xray ordered, monitor symptoms. Pt to stop aspirin x 1 week, continue with eliquis. call if s ymptoms are not improving. rx for phenergan with codeine. 04/10/2017 Appointment: Steffany Parsons WPtel: [phone] [facility] (15 min) Moderate 04/10/2017 Patient Education: [...] spray. 03/29/2017 Appointment: Sandra Tim WPtel: [phone] [facility] (15 min) Moderate 03/29/2017 Patient Education: Patient Medication Summary Completed 03/29/2017 Visit Plan: Pneumonia - Pt has been diagnosed with pneumonia by physical exam. A chest xray has been ordered as have antibiotics. The pt is aware of the diagnosis and the need for acute treatment of this illness. Cough - rx for promethazine/codeine syrup for cough. 02/06/2017 Appointment: Steff[facility] Parsons [facility]el[phone] (15 min) Moderate 02/06/2017 Patient Education: Patient [...] improving. 11/06/2016 Appointment: Sandra Tim WPtel: [phone] [facility] (15 min) Moderate 11/06/2016 Patient Education: Patient [...] worsen. 09/27/2016 Appointment: [facility]el[phone] (30 min) Complex 09/27/2016 Patient Education: [...] becoming uncontrolled. 03/21/2016 Appointment: Steffany Parsons WPtel: [facility]3 [facility] (15 min) Moderate 03/21/2016 Patient Education: Patient Medication Summary Completed 03/21/2016 Patient Education: Obesity Completed 03/21/2016 Visit Plan: Diarrhea-recent abx use -check stool for cdiff- increase probiotic to twice daily-bland diet advance as tolerated-call if symptoms do not resolve or if any worse. Patient verbalized understanding of pl an. 02/01/2016 Appointment: Lucrecia Yeager WPtel: [facility]6 [phone] (15 min) Moderate 02/01/2016 Patient Education: Patient Medication Summary Completed 02/01/2016 Patient Education: Obesity Completed 02/01/2016 Referral: Alexi Honeycutt [id number] [place] Info faxed Completed 11/27/2015 Visit Plan: [...] Summary Completed 11/23/2015 Appointment: Steffany Parsons WPtel: [address] [place] [address] (15 min) Moderate 11/15/2015 Visit Plan: Allergies [...] not heal 10/14/2015 Appointment: Lucrecia Yeager WPtel: [facility]5 [facility] [place] [address] (15 min) Moderate 10/14/2015 Patient Education: Patient [...] acute concerns. 07/20/2015 Appointment: Lucrecia Yeager WPtel: [address] [place], [place] [phone] (30 min) Complex 07/20/2015 Patient Education: Patient [...] acute concerns. 07/06/2015 Appointment: Jaqueline Steffany WPtel: [phone] (15 min) Moderate 07/06/2015 Patient Education: Patient [...] - pt has an upcoming appointment with analytics specialist to possibly have an ablation done. [...] Patient Education: Hypertension Completed 03/08/2015 [facility] Ref[facility] Completed 02/13/2015 Visit Plan: Allergies [...] 02/02/2015 Care Plan: Referral Order SNOMED-CT : [id number] Ordered 02/02/2015 Visit Plan: Hypertension - well [...] not improving. 09/22/2014 Appointment: Steffany Parsons WPtel: [address] [place], [place] [phone] [place] ([place]) New Patient 09/22/2014 Patient Education: Patient Medication Summary Completed 09/22/2014 Patient Education: Hypertension Completed 09/22/2014 [facility] Referral Initiated Instructions Comment . Hypertension - [...] and start the doxycycline take a probiotic (Zuffle, OneMln, or generic) twice a day while on [...] eye four times daily. . Hemoptysis and YIELD CLERK D exacerbation - continue with antibiotics, rx [...] - pt has an upcoming appointment with analytics specialist to possibly have an ablation done. [...] prolonged hospitalization -he is doing PT/OT at [facility] -he did stand for 10 seconds twice [...]
--- NOTE | 2019-07-22 16:03 | OPERATIVE REPORT ---
DATE OF SERVICE: 07/22/2019 PREOPERATIVE DIAGNOSIS: Pacemaker at elective replacement indicator. POSTOPERATIVE DIAGNOSIS: Pacemaker at elective replacement indicator. PROCEDURE PERFORMED: Pulse generator change. INDICATIONS: The patient is a 78-year-old gentleman who has advanced atrioventricular block, has a pacemaker in place, which is now at elective replacement indicator. Informed consent was obtained for pulse generator change. DESCRIPTION OF PROCEDURE: He was brought to the cardiac catheterization laboratory. The left prepectoral area was prepared and draped in the usual sterile fashion. Sharp and blunt dissection was used to open the pacemaker pocket after local anesthesia with 1% lidocaine. The pacemaker was removed from the pocket. It was detached from the leads. The leads were left in place and the pacemaker was detached from the leads. The pacemaker was found to be functioning normally. The pocket was thoroughly irrigated with an antibiotic solution. The new pacemaker was placed in the TYRX pocket and the pacemaker was then placed in the previous pacemaker pocket and the pocket was closed in two layers using 3.0 Vicryl. He tolerated the procedure well. The device removed is a Medtronic pacemaker with serial number [id number]. The new device is a Medtronic [place] pacemaker with serial number [id number]. Job ID: [id number] DocumentID: [id number] Dictated Date: 07/22/2019 11:07:07 Pharmacist Per Diem Date: 07/22/2019 12:59:34 Dictated By: TOSHA JUNIOR MD, MA, FACP, FACC,
--- OUTSIDE RECORDS SUMMARY | 2019-07-22 16:04 | XMS REPORT | CCD ---
Author Author Vishnu Parsons Organization [facility] Address [address] [place] [address] Phone Care Team Providers Care Commercial Relationship Manager Name Role Phone PP Unavailable CCM Unavailable Summary Purpose Interface Exchange Insurance Providers Payer name Policy type / Coverage type Covered green party ID Effective Begin Date Effective End Date [facility] Commercial Insurance [id number] Unknown Unknown Family history Father Diagnosis Age At Onset Prostate Cancer Unknown Runs in the family Diagnosis Age At Onset Hypertension Unknown Mother Diagnosis Age At Onset No Family Disease Entered N/A Social History Social History Element Codes Description Effective Dates Marital status Unknown M arried Mary 02/06/2017 Number of children Unknown 5 09/22/[address]: 3289290 Quit over 10 years ago 09/22/[address]: 528299297 Never drinks alcohol 09/22/2014 Allergies, Adverse Reactions, Alerts Substance Reaction Codes Entered Date Inactivated Date Status * NO KNOWN DRUG YOSSI RGIES Unknown 09/22/2014 No Inactive Date Active Past Medical History Illness Codes Condition Status Onset Date Resolved Date Hypo-osmolality and hyponatremia ICD-9: 276.1 ICD-10: E87.1 [...] ICD-10: L03.113 Active 06/04/2018 Unknown Chronic atrial fibri llation ICD-9: 427.31 ICD-10: [...] Condition Codes Effectiv e Dates Condition Status Hypo-osmolality and hyponatremia ICD-9: 276.1 ICD-10: E87.1 [...] 682.4 ICD-10: L03.113 06/04/2018 Active Chronic atrial fibri llation ICD-9: 427.31 ICD-10: I48.2 03/20/2016 Active Essential [...] acidop hilus 1 billion cell tablet RxNorm: 739254 1 Tablet(s) PO QHS 12/10/2018 No Stop Date Active ipratropium-albutero l 0.5 mg-3 mg(2.5 mg base)/3 mL nebulization soln RxNorm: 0399736 1 INH TID and q 2 hours prn 11/30/19 19 No Stop Date Active PLAC E ON HOLD INCASE THEY NEED IT Coumadin 3 mg tablet RxNorm: 502931 1 Tablet(s) PO 4 times a week Sun S AT 11/29/2018 03/28/2019 Active hydralazine 25 mg ta blet RxNorm: 063111 1 Tablet(s) PO Q6 as needed 11/29/2018 01/27/2019 Active losartan 50 mg tablet RxNorm: 755819 1 Tablet(s) PO QPM 11/29/2018 03/28/2019 Active spironolactone 25 mg tablet RxNorm: 915941 1 Tablet(s) PO daily 11/29/2018 03/28/2019 Active diltiazem CD 120 mg capsule,extended release 24 hr RxNorm: 981295 1 Capsule(s) PO daily 11/29/2018 03/28/2019 Active Coumadin 2 mg tablet RxNorm: 114848 1 Tablet(s) PO 3 x week m w f 11/29/2018 03/28/2019 Ac tive pantoprazole 40 mg t ablet,delayed release RxNorm: 935734 1 Tablet(s) PO daily 11/29/2018 03/28/2019 Ac tive metoprolol tartrate 25 mg tablet RxNorm: 256664 1 Tablet(s) PO BID 11/29/2018 03/28/2019 Active duloxetine 20 mg cap marck,delayed release RxNorm: 455643 1 Capsule(s) PO daily 11/29/2018 12/09/2018 In active duloxetine 20 mg cap marck,delayed release RxNorm: 513601 1 Capsule(s) PO daily 11/29/2018 11/28/2018 In active aspirin 81 mg tablet RxNorm: 031391 1 Tablet(s) PO every other day 11/22/2018 No Stop Date Active melatonin 10 mg disi ntegrating tablet RxNorm: 5065511 1 Tablet(s) PO daily 11/01/2018 No Stop Date Active Lasix 20 mg tablet RxNorm: 425264 Tablet(s) PO Q72H 11/01/2018 No Stop Date Active Lialda 1.2 gram tabl et,delayed release RxNorm: 945117 2 Tablet(s) PO QHS -P rescried by Dr. Seymour 11/01/2018 No Stop Date Active Imodium A-D 2 mg tablet RxNorm: 667475 1/2 Tablet(s) PO BID 11/01/2018 No Stop Date Active metoprolol tartrate 25 mg tablet RxNorm: 725939 1 Tablet(s) PO BID 11/01/2018 11/28/2018 Inactive ipratropium-albutero l 0.5 mg-3 mg(2.5 mg base)/3 mL nebulization soln RxNorm: 2675641 1 INH Q4H and q 2 hours prn 11/02/1911/28/2018 Inactive Flonase Allergy Reli ef 50 mcg/actuation nasal spray,suspension RxNorm: 8301711 2 [place] NASAL daily as needed 201812/09/2018 Inactive diphenoxylate-atropi ne 2.5 mg-0.025 mg tablet RxNorm: 9852850 1/2 Tablet(s) PO Q12 H and q 1 q 6 hours prn 11/01/2018 12/09/2018 Inactive losartan 50 mg tablet RxNorm: 492159 1 Tablet(s) PO QPM at supper 11/01/2018 11/28/2018 Inactive Coumadin 3 mg tablet RxNorm: 970498 1 Tablet(s) PO TIW M W F 10/30/2018 11/28/2018 Inactive Klor-Con M20 mEq tab let,extended release RxNorm: 7635109 TAKE 1 TABLET EVERY MORNING 10/01/2018 10/31/2018 Inactive doxycycline hyclate 100 mg capsule RxNorm: 5856250 1 Capsule(s) PO BID 07/31/2018 08/09/2018 In active doxycycline hyclate 100 mg capsule RxNorm: 1074148 1 Capsule(s) PO BID 07/08/2018 07/17/2018 In active Kenalog 40 mg/mL nori pension for injection RxNorm: 8795706 1 Milliliter(s) Inj 07/08/2018 07/08/2018 In active ciprofloxacin 0.3 % eye drops RxNorm: 051404 2 Drop(s) ophthalmic (eye) Q2H while awake x 2 days then Q4H x 5 days 07/08/2018 10/31/2018 Inactive Keflex 500 mg capsule RxNorm: 941520 1 Capsule(s) PO TID 07/02/2018 07/08/2018 Inactive dapsone 100 mg tablet RxNorm: 266119 1 Tablet(s) PO daily 06/04/2018 06/10/2018 Inactive doxycycline hyclate 100 mg capsule RxNorm: 0643535 1 Capsule(s) PO BID 06/04/2018 06/13/2018 In active Lasix 40 mg tablet RxNorm: 076124 TAKE 1 TABLET DAILY 04/22/2018 10/31/2018 Inactive prednisone 20 mg tablet RxNorm: 056008 2 Tablet(s) PO daily 02/28/2018 03/04/2018 Inactive START TOMORROW Keflex 500 mg capsule RxNorm: 848866 1 Capsule(s) PO TID 02/28/2018 03/09/2018 Inactive ceftriaxone 500 mg s olution for injection RxNorm: 4901444 Inj 02/28/2018 02/28/2018 Inactive Kenalog 40 mg/mL nori pension for injection RxNorm: 7074521 Milliliter(s) Inj 02/26/2018 02/26/2018 In active Keflex 500 mg capsule RxNorm: 019334 1 Capsule(s) PO TID 02/19/2018 02/25/2018 Inactive Klor-Con M20 mEq tab let,extended release RxNorm: 5923238 TAKE 1 TABLET EVERY MORNING 12/04/2017 09/30/2018 Inactive prednisone 20 mg tablet RxNorm: 988125 2 Tablet(s) PO daily 11/16/2017 11/20/2017 Inactive START TOMORROW Zithromax Z-Mau 250 mg tablet RxNorm: 314942 1 Tablet(s) PO daily 11/16/2017 11/20/2017 Inactive Zithromax Z-Mau 250 mg tablet RxNorm: 782059 1 Tablet(s) PO daily 11/16/2017 11/15/2017 Inactive Keflex 500 mg capsule RxNorm: 833717 1 Capsule(s) PO TID 11/09/2017 11/15/2017 Inactive Zithromax 250 mg tablet RxNorm: 972938 [address] day and 1 tab po on day 2-5 Tablet(s) PO 08/30/2017 09/03/2017 Inactive zpack x 1 doxycycline hyclate 100 mg tablet RxNorm: 855245 1 Tablet(s) PO BID 07/09/2017 07/15/2017 Inactive prednisone 20 mg tablet RxNorm: 858610 2 Tablet(s) PO daily 06/29/2017 07/01/2017 Inactive START TOMORROW Kenalog 40 mg/mL nori pension for injection RxNorm: 7735734 Milliliter(s) Inj 06/29/2017 06/29/2017 In active Lasix 40 mg tablet RxNorm: 982110 TAKE 1 TABLET DAILY 04/24/2017 04/21/2018 Inactive Diflucan 150 mg tablet RxNorm: 468112 1 Tablet(s) PO daily 04/10/2017 04/16/2017 Inactive Bactrim DS 800 mg-16 0 mg tablet RxNorm: 337141 1 Tablet(s) PO BID 04/10/2017 04/16/2017 Inactive nystatin 100,000 uni t/mL oral suspension RxNorm: 814786 5 Milliliter(s) PO QI D 04/10/2017 04/19/2017 In active cefdinir 300 mg capsule RxNorm: 725170 1 Capsule(s) PO BID 03/28/2017 04/06/2017 Inactive cefdinir 300 mg capsule RxNorm: 179067 1 Capsule(s) PO BID 02/06/2017 02/15/2017 Inactive ceftriaxone 500 mg s olution for injection RxNorm: 7139097 Inj 02/06/2017 02/06/2017 Inactive omeprazole 20 mg tab let,delayed release RxNorm: 367214 1 Tablet(s) PO daily 11/06/2016 12/05/2016 In active Phenergan with Codei ne Syrup RxNorm: 5 Milliliter(s) PO QID as n eeded 10/30/2016 10/31/2018 In active Tessalon Perles 100 mg capsule RxNorm: 193862 1-2 Capsule(s) PO TID as needed cough 10/30/2016 11/08/2016 In active Klor-Con M20 mEq tab let,extended release RxNorm: 4928491 TAKE 1 TABLET EVERY MORNING 10/26/2016 12/03/2017 Inactive ceftriaxone 500 mg s olution for injection RxNorm: 8247461 1 Milliliter(s) Inj 09/27/2016 09/27/2016 In active Phenergan with Codei ne Syrup RxNorm: 5 Milliliter(s) PO QID as n eeded 09/27/2016 10/29/2016 In active Tessalon Perles 100 mg capsule RxNorm: 534012 1-2 Capsule(s) PO TID as needed cough 09/27/2016 09/29/2016 In active Kenalog 40 mg/mL nori pension for injection RxNorm: 3539290 1 Milliliter(s) Inj 09/27/2016 09/27/2016 In active Flagyl 500 mg tablet RxNorm: 365267 1 Tablet(s) PO TID 2016 08/05/2016 Inactive Lasix 40 mg tablet RxNorm: 703607 TAKE 1 TABLET DAILY 07/26/2016 04/23/2017 Inactive Zithromax 250 mg tablet RxNorm: 005503 [address] day and 1 tab po on day 2-5 Tablet(s) PO 03/28/2016 03/27/2016 Inactive zpack x 1 Zithromax 250 mg tablet RxNorm: 959624 [address] day and 1 tab po on day 2-5 Tablet(s) PO 03/28/2016 04/01/2016 Inactive zpack x 1 Flagyl 500 mg tablet RxNorm: 914380 1 Tablet(s) PO TID 02/07/2016 02/06/2016 Inactive Flagyl 500 mg tablet RxNorm: 765685 1 Tablet(s) PO TID 02/07/2016 02/16/2016 Inactive Zyrtec-D 5 mg-120 mg tablet,extended release RxNorm: 6703003 1 Tablet(s) PO daily as needed allergies 11/23/2015 10/31/2018 Inactive Imodium A-D 2 mg tablet RxNorm: 077650 1/2 Tablet(s) PO daily 11/23/2015 10/31/2018 Inactive Mucinex 600 mg table t, extended release RxNorm: 462126 1 Tablet(s) PO BID as needed 11/23/2015 01/21/2016 In active Lasix 40 mg tablet RxNorm: 129087 TAKE 1 TABLET DAILY 11/01/2015 07/25/2016 Inactive Klor-Con M20 mEq tab let,extended release RxNorm: 2389895 TAKE 1 TABLET EVERY MORNING 11/01/2015 10/25/2016 Inactive Flonase Allergy Reli ef 50 mcg/actuation nasal spray,suspension RxNorm: 6615615 2 [place] NASAL daily 07/20/2015 10/31/2018 Inactive Kenalog 40 mg/mL nori pension for injection RxNorm: 1958787 Milliliter(s) Inj 02/02/2015 02/02/2015 In active Plavix 75 mg tablet RxNorm: 037783 1 Tablet(s) PO daily 10/05/2014 03/07/2015 Inactive Klor-Con M20 mEq tab let,extended release RxNorm: 293400 1 Tablet(s) PO QAM 10/05/2014 10/31/2015 In active Lasix 40 mg tablet RxNorm: 412880 1 Tablet(s) PO daily 10/05/2014 10/31/2015 Inactive Crestor 5 mg tablet RxNorm: 941135 1/2 Tablet(s) PO daily 10/05/2014 10/31/2018 Inactive Efudex 5 % topical c ream RxNorm: 896334 1 Application TOP BID x 2 weeks, allow healing x 1 -2 weeks, then reuse 10/05/2014 07/05/2015 Inactive metoprolol tartrate 100 mg tablet RxNorm: 767368 1 Tablet(s) PO BID 10/05/2014 12/28/2015 Inactive Pradaxa 150 mg capsule RxNorm: 9821603 1 Capsule(s) PO BID 10/05/2014 04/09/2017 Inactive amlodipine 10 mg tablet RxNorm: 303380 1/2 Tablet(s) PO QAM 10/05/2014 07/05/2015 Inactive Efudex 5 % topical c ream RxNorm: 772150 1 Application TOP BID x 2 weeks, allow healing x 1 -2 weeks, then reuse 09/22/2014 10/04/2014 Inactive Klor-Con M20 mEq tab let,extended release RxNorm: 003462 1 Tablet(s) PO QAM 09/22/2014 10/04/2014 In active Lasix 40 mg tablet RxNorm: 983569 1 Tablet(s) PO daily 09/22/2014 10/04/2014 Inactive duloxetine 20 mg cap marck,delayed release RxNorm: 749853 1 Capsule(s) PO BID No Start Date Active Centrum Silver oral RxNorm: 19647 oral No Start Date Active magnesium 250 mg tablet RxNorm: 1 Tablet(s) PO daily No Start Date Active loratadine 10 mg tablet RxNorm: 016706 1 Tablet(s) PO daily No Start Date Active Vitamin D3 5,000 uni t tablet RxNorm: 905749 1 Tablet(s) PO BID No Start Date Active Flomax 0.4 mg capsule RxNorm: 907384 1 Capsule(s) PO QPM No Start Date Active Glucosamine Chondroi t Complx Advan oral RxNorm: oral No Start D ate Active hydralazine 25 mg ta blet RxNorm: 651239 1 Tablet(s) PO Q6 as needed No Start Date 11/28/2018 Inactive Cartia XT 180 mg cap marck,extended release RxNorm: 207667 2 Capsule(s) PO daily No Start Date 10/31/2018 Inactive Lactobacillus acidop hilus 1 billion cell tablet RxNorm: 599275 1 Tablet(s) PO BID No Start Date 12/09/2018 Inactive spironolactone 25 mg tablet RxNorm: 061396 1 Tablet(s) PO daily No Start Date 11/28/2018 Inactive cetirizine 10 mg tablet RxNorm: 5553543 1 Tablet(s) PO daily at lunch No Start Date 10/31/2018 Inactive Canasa 1,000 mg rect al suppository RxNorm: 478963 [address] QHS [address] seymour No Start Date 10/31/2018 Inactive Lialda 1.2 gram tabl et,delayed release RxNorm: 263349 1 Tablet(s) PO QHS -P rescried by Dr. Seymour No Start Date 10/31/2018 Inactive melatonin 1 mg tablet RxNorm: 714929 1 Tablet(s) PO daily No Start Date 10/31/2018 Inactive Plavix 75 mg tablet RxNorm: 150242 1 Tablet(s) PO daily No Start Date 10/04/2014 Inactive Klor-Con M20 mEq tab let,extended release RxNorm: 298760 1 Tablet(s) PO QAM No Start Date 09/21/2014 Inactive diphenoxylate-atropi ne 2.5 mg-0.025 mg tablet RxNorm: 4765429 1/2 Tablet(s) PO Q12 H No Start Date 10/31/2018 Inactive Eliquis 5 mg tablet RxNorm: 1095783 1 Tablet(s) PO BID Dr Avila No Start Date 10/29/2018 Inactive diltiazem CD 120 mg capsule,extended release 24 hr RxNorm: 772649 1 Capsule(s) PO daily No Start Date 11/28/2018 Inactive diclofenac sodium 75 mg tablet,delayed release RxNorm: 309974 1 Tablet(s) PO TID as needed No Start Date 12/09/2018 Inactive Coumadin 2 mg tablet RxNorm: 842682 1 Tablet(s) PO 4 times a week T TH Sat S un No Start Date 11/28/2018 Inactive aspirin 81 mg tablet RxNorm: 667099 1 Tablet(s) PO daily No Start Date 11/21/2018 Inactive magnesium 200 mg (as magnesium oxide) tablet RxNorm: 431324 1 Tablet(s) PO daily No Start Date 11/01/2018 Inactive Emla topical RxNorm: 42195 topical No Start Date 12/09/2018 Inactive Imodium oral RxNorm: oral No Start Date 11/21 Inactive Colace 100 mg capsule RxNorm: 2557925 1 Capsule(s) PO BID No Start Date 12/09/2018 Inactive Lasix 40 mg tablet RxNorm: 322359 1 Tablet(s) PO daily No Start Date 09/21/2014 Inactive amlodipine 10 mg tablet RxNorm: 898289 1/2 Tablet(s) PO QAM No Start Date 10/04/2014 Inactive Crestor 5 mg tablet RxNorm: 069906 1/2 Tablet(s) PO daily No Start Date 10/04/2014 Inactive Flonase Allergy Reli ef 50 mcg/actuation nasal spray,suspension RxNorm: 1 [place] NASAL daily No Start Date 07/19/2015 Inactive aspirin 81 mg capsul e,delayed release RxNorm: 965461 1 Capsule(s) PO daily No Start Date 10/31/2018 Inactive losartan 25 mg tablet RxNorm: 629560 1 Tablet(s) PO QPM at supper No Start Date 10/31/2018 Inactive metoprolol tartrate 100 mg tablet RxNorm: 588459 1 Tablet(s) PO BID No Start Date 10/04/2014 Inactive ipratropium-albutero l 0.5 mg-3 mg(2.5 mg base)/3 mL nebulization soln RxNorm: 5568268 1 INH Q4H No Start Date 10/31/2018 Inactive digoxin 250 mcg tablet RxNorm: 382387 1 Tablet(s) PO daily No Start Date 10/31/2018 Inactive Probiotic 4X oral RxNorm: 0312054 oral No Start Date 07/06/2015 Inactive pantoprazole 40 mg t ablet,delayed release RxNorm: 037709 1 Tablet(s) PO daily No Start Date 11/28/2018 Inactive Probiotic oral RxNorm: 6205 oral No Start Date 10/31/2018 Inactive Pradaxa 150 mg capsule RxNorm: 0745225 1 Capsule(s) PO BID No Start Date 10/04/2014 Inactive Medication Administered Medication Codes Instruc tions Start Date Status Kenalog 40 mg/mL suspension for injection RxNorm: 3823182 1Milliliter 07/08/2018 N o longer Active ceftriaxone 500 mg solution for injection RxNorm: 5792232 02/28/2018 No longer A ctive Kenalog 40 mg/mL suspension for injection RxNorm: 6027307 Milliliter 02/26/2018 No longer Active Kenalog 40 mg/mL suspension for injection RxNorm: 0908726 Milliliter 06/29/2017 No longer Active ceftriaxone 500 mg solution for injection RxNorm: 5246407 02/06/2017 No longer A ctive Kenalog 40 mg/mL suspension for injection RxNorm: 7481713 1Milliliter 09/27/2016 N o longer Active ceftriaxone 500 mg solution for injection RxNorm: 0771393 1Milliliter 09/27/2016 N o longer Active Kenalog 40 mg/mL suspension for injection RxNorm: 7786273 Milliliter 02/02/2015 No longer Active Immunizations Vaccine Codes Date Status SHINGARIX CVX: 121 01/07 completed Influenza CVX: 141 12/26 completed Pneumococcal CVX: 133 completed Influenza CVX: 141 01/10 completed Influenza CVX: 141 01/06 completed Influenza CVX: 141 12/01 completed Zoster CVX: 121 04/02/19 12 completed Pneumococcal CVX: 33 04/2007 completed Assessments Condition Codes Effectiv e Dates Other emphysema ICD-10: J43.8 ICD-9: 492.8 11/22/2018 Hypo-osmolality and hyponatremia ICD -10: E87.1 ICD-9: 276.1 11/22/2018 Muscle weakness (generalized) ICD-10 : M62.81 ICD-9: 728.87 11/22/2018 Rash and other nonspecific skin eruption ICD-10: [...] limb ICD-1 0: L03.113 ICD-9: 682.4 06/04/2018 Chronic atrial fibrillation [...] For Visit Effective Dates Notes muscle weakness 11/22/2018 Hospital Follow Up 11/01/2018 [...] 31.4 pg 10/23/2017 Cbc With Differential Ord2 Warren% 8.5 % 10/23/2017 Cbc With Differential Ord2 [...] 2.73 K/ul 10/23/2017 Cbc With Differential Ord2 [place] ABS# 0.9 K/ul 10/23/2017 Cbc With Differential Ord2 Eos ABS# 0.6 K/ul 10/23/2017 Cbc With Differential Ord2 Baso ABS# 0.0 K/ul 10/23/2017 Digoxin Ord9 DIGOXIN 1.0 NG/ML 10/23/2017 Lipid Ord30 CHOL 108 mg/dL 10/23/2017 Lipid Ord30 HDL 39.0 mg/dl 10/23/2017 Lipid Ord30 TRIG 175 mg/dL 10/23/2017 Lipid Ord30 LDL 34 mg/dL 10/23/2017 Lipid Ord30 C/HDL 2.8 Ratio 10/23/2017 Comp Metabolic Jvu168 NA 140 mEq/L 10/23/2017 Comp Metabolic Zak100 K 4.1 mEq/L 10/23/2017 Comp Metabolic Zwb598 CL 102 mEq/L 10/23/2017 Comp Metabolic Cyo124 CO2 30.0 mEq/L 10/23/2017 Comp Metabolic Hmq023 AN ION GAP 12 10/23/2017 Comp Metabolic Djd461 GL UCOSE 124 mg/dL 10/23/2017 Comp Metabolic Kop388 Cr eat 1.1 mg/dL 10/23/2017 Comp Metabolic Qtn952 eG FR 71 ml/min/1.73m2 10/23 Comp Metabolic Bjc123 BUN 11 mg/dL 10/23/2017 Comp Metabolic Iqq791 B/ C Ratio 10.2 Ratio 10/23/2017 Comp Metabolic Myq062 CA LCIUM 9.3 mg/dL 10/23/2017 Comp Metabolic Uac512 AL K PHOS 72 U/L 10/23/2017 Comp Metabolic Ouu723 T(SGOT) 21 U/L 10/23/2017 Comp Metabolic Hcc825 AL T(SGPT) 17 U/L 10/23/2017 Comp Metabolic Yus784 BI LI T 0.8 mg/dL 10/23/2017 Comp Metabolic Wdz288 AL BUMIN 4.3 g/dL 10/23/2017 Comp Metabolic Fnq489 TP RO 7.4 g/dL 10/23/2017 Comp Metabolic Kly115 GL OB 3.1 g/dL 10/23/2017 Comp Metabolic Hnd208 A/ G Ratio 1.4 Ratio 10/23/2017 Comp Metabolic Czs268 Os mo 280 mOsmo 10/23/2017 Tsh Ord6 TSH (3rd IS) 3.37 uIU/mL 10/23/2017 Test(s) Not Perfromed [id number] Test(s) Not Performed Test(s) Not Performed. See Below: 10/23/2017 Test(s) Not Perfromed [id number] TEST NAME PSA 10/23/2017 Test(s) Not Perfromed [id number] Rejection Reason PSA Performed yearly at Dr. Stone's Office 10/23/2017 Test(s) Not Perfromed [id number] COMMENT N/A 10/23/2017 Test(s) Not Perfromed [id number] Sonogram Technician Gian Johnson 10/23/2017 Comp Metabolic Cwu504 NA 137 mEq/L 03/21/2016 Comp Metabolic Ruq306 K 4.6 mEq/L 03/21/2016 Comp Metabolic Rhx085 CL 101 mEq/L 03/21/2016 Comp Metabolic Ntd366 CO2 31.0 mEq/L 03/21/2016 Comp Metabolic Ecz585 AN ION GAP 10 03/21/2016 Comp Metabolic Wfl796 GL UCOSE 106 mg/dL 03/21/2016 Comp Metabolic Vvz257 Cr eat 1.1 mg/dL 03/21/2016 Comp Metabolic Joa020 eG FR 69 ml/min/1.73m2 03/21 Comp Metabolic Peg442 BUN 11 mg/dL 03/21/2016 Comp Metabolic Umm588 B/ C Ratio 9.9 Ratio 03/21/2016 Comp Metabolic Daa992 CA LCIUM 9.5 mg/dL 03/21/2016 Comp Metabolic Ogw783 AL K PHOS 88 U/L 03/21/2016 Comp Metabolic Wzb409 T(SGOT) 21 U/L 03/21/2016 Comp Metabolic Nza621 AL T(SGPT) 15 U/L 03/21/2016 Comp Metabolic Wks373 BI LI T 0.7 mg/dL 03/21/2016 Comp Metabolic Kza062 AL BUMIN 4.2 g/dL 03/21/2016 Comp Metabolic Hxs827 TP RO 7.9 g/dL 03/21/2016 Comp Metabolic Qym134 GL OB 3.7 g/dL 03/21/2016 Comp Metabolic Mdm819 A/ G Ratio 1.1 Ratio 03/21/2016 Comp Metabolic Buw183 Os mo 274 mOsmo 03/21/2016 Lipid Ord30 [...] 31.3 pg 03/21/2016 Cbc With Differential Ord2 Warren% 10.3 % 03/21/2016 Cbc With Differential Ord2 [...] 2.51 K/ul 03/21/2016 Cbc With Differential Ord2 [place] ABS# 1.2 K/ul 03/21/2016 Cbc With Differential Ord2 Eos ABS# 0.7 K/ul 03/21/2016 Cbc With Differential Ord2 Baso ABS# 0.0 K/ul 03/21/2016 Clostridium Diff Tox A/B Bdb966 Cdiff Negative 02/01/2016 Culture Mrsa [id number] MRSA CULTURE SEE NOTES 04/09/2015 Digoxin Ord9 [...] Ord9 DIGOXIN 1.0 NG/ML 03/11/2015 Comp Metabolic Qun205 NA 142 mEq/L 03/11/2015 Comp Metabolic Urh596 K 4.4 mEq/L 03/11/2015 Comp Metabolic Mzp126 CL 107 mEq/L 03/11/2015 Comp Metabolic Lwp437 CO2 27.0 mEq/L 03/11/2015 Comp Metabolic Kun285 AN ION GAP 12 03/11/2015 Comp Metabolic Xke027 GL UCOSE 106 mg/dL 03/11/2015 Comp Metabolic Epe339 Cr eat 1.1 mg/dL 03/11/2015 Comp Metabolic Ytk488 eG FR 68 ml/min/1.73m2 03/11 Comp Metabolic Eeh491 BUN 16 mg/dL 03/11/2015 Comp Metabolic Wdr912 B/ C Ratio 14.3 Ratio 03/11/2015 Comp Metabolic Pst623 CA LCIUM 9.5 mg/dL 03/11/2015 Comp Metabolic Ixl374 AL K PHOS 82 U/L 03/11/2015 Comp Metabolic Roe415 T(SGOT) 20 U/L 03/11/2015 Comp Metabolic Bqr321 AL T(SGPT) 17 U/L 03/11/2015 Comp Metabolic Jfi167 BI LI T 0.4 mg/dL 03/11/2015 Comp Metabolic Dwi052 AL BUMIN 4.0 g/dL 03/11/2015 Comp Metabolic Jsz097 TP RO 6.9 g/dL 03/11/2015 Comp Metabolic Rqv456 GL OB 2.9 g/dL 03/11/2015 Comp Metabolic Etm266 A/ G Ratio 1.4 Ratio 03/11/2015 Comp Metabolic Nxz427 Os mo 285 mOsmo 03/11/2015 Metabolic Ord15 [...] Result Effective Dates Constitutional No recent illness 11/22/2018 Constitutional No [...] inspection of skin Location: face 11/01/2018 right hinduism, forehead, l eft hinduism - irrirated actinic keratosis Full Exam - [...] inspection of skin Location: face 04/23/2018 right hinduism, forehead, l eft hinduism - irrirated actinic keratosis Full Exam - [...] inspection of skin Location: face 10/22/2017 right hinduism, forehead, l eft hinduism - irrirated actinic keratosis Full Exam - [...] inspection of skin Location: face 03/21/2016 right hinduism, forehead, l eft hinduism - irrirated actinic keratosis Full Exam - [...] inspection of skin Location: face 11/23/2015 right hinduism, left hinduism - irrirated actinic keratosis Full Exam - [...] inspection of skin Location: face 07/06/2015 right hinduism, forehead, l eft hinduism - irrirated actinic keratosis Full Exam - [...] CPT-4: J3301 07/08/2018 THER/PROPH/DIAG INJ SC/IM CPT-4: 13769 07/08/2018 THER/PROPH/DIAG INJ SC/IM CPT-4: 75424 02/28/2018 ROCEPHIN, PER 250 MG CPT-4: J0696 02/28/2018 THER/PROPH/DIAG INJ SC/IM CPT-4: 24738 02/26/2018 TRIAMCINOLONE ACET I [place] NOS CPT-4: J3301 02/26/2018 PPPS, SUBSEQ VISIT CPT- 4: G0439 2017 TRIAMCINOLONE ACET I [place] NOS CPT-4: J3301 06/29/2017 THER/PROPH/DIAG INJ SC/IM CPT-4: 86036 02/06/2017 ROCEPHIN, PER 250 MG CPT-4: J0696 02/06/2017 ROCEPHIN, PER 250 MG CPT-4: J0696 09/27/2016 TRIAMCINOLONE ACET I [place] NOS CPT-4: J3301 09/27/2016 THER/PROPH/DIAG INJ SC/IM CPT-4: 16578 09/27/2016 DESTRUCT PREMALG LESION CPT-4: 04090 10/14/2015 DESTRUCT PREMALG LESION CPT-4: 13336 07/20/2015 DESTRUCT PREMALG LESION CPT-4: 83506 07/06/2015 DESTRUCT PREMALG LES 2-14 CPT-4: 44468 07/06/2015 TRIAMCINOLONE ACET I [place] NOS CPT-4: J3301 02/02/2015 Vital Signs Date Vital 11/22/2018 Blood Pressure 1: 110/58 Code: 8480-6 Heart Rate 1: 74 bpm Height: 5'8" SpO2: 98% Weight: 11/01/2018 Blood Pressure 1: 120/70 Code: 8480-6 Heart Rate 1: 72 bpm Height: SpO2: 98% Weight: 07/08/2018 Blood Pressure 1: 134/64 Code: 8480-6 BMI: 30.6 Code: 45797-5 Heart Rate 1: 79 bpm Height: 5'8" SpO2: 98% Weight: 201 lbs 06/04/2018 Blood Pressure 1: 130/62 Code: 8480-6 BMI: 30.6 Code: 74093-2 Heart Rate 1: 88 bpm Height: 5'8" SpO2: 97% Weight: 201 lbs 04/23/2018 Blood Pressure 1: 130/72 Code: 8480-6 BMI: 30.1 Code: 61622-6 Heart Rate 1: 74 bpm Height: 5'8" SpO2: 97% Weight: 198 lbs 02/28/2018 Blood Pressure 1: 124/72 Code: 8480-6 BMI: 30.0 Code: 11373-5 Heart Rate 1: 69 bpm Height: 5'8" SpO2: 97% Temperature: 36.6 (C ) / 97.8 (F) Weight: 197 lbs 02/19/2018 Blood Pressure 1: 128/76 Code: 8480-6 BMI: 30.0 Code: 87921-6 Heart Rate 1: 66 bpm Height: 5'8" SpO2: 97% Weight: 197 lbs 11/09/2017 Blood Pressure 1: 130/74 Code: 8480-6 BMI: 29.3 Code: 00108-2 Heart Rate 1: 81 bpm Height: 5'8" SpO2: 98% Temperature: 36.6 (C ) / 97.9 (F) Weight: 193 lbs 10/22/2017 Blood Pressure 1: 132/82 Code: 8480-6 BMI: 29.0 Code: 56943-6 Heart Rate 1: 80 bpm Height: 5'8" SpO2: 98% Weight: 191 lbs 2017 Blood Pressure 1: 142/68 Code: 8480-6 BMI: 28.7 Code: 24057-6 Heart Rate 1: 62 bpm Height: 5'8" SpO2: 98% Waist Measure (cm): 102 cm Weight: 189 lbs 07/23/2017 Blood Pressure 1: 138/84 Code: 8480-6 BMI: 29.0 Code: 00764-7 Heart Rate 1: 69 bpm Height: 5'8" SpO2: 98% Weight: 191 lbs 07/09/2017 Blood Pressure 1: 120/82 Code: 8480-6 BMI: 29.2 Code: 99314-7 Heart Rate 1: 80 bpm Height: 5'8" SpO2: 98% Weight: 192 lbs 06/29/2017 Blood Pressure 1: 140/82 Code: 8480-6 BMI: 29.5 Code: 21488-7 Heart Rate 1: 83 bpm Height: 5'8" SpO2: 98% Weight: 194 lbs 04/23/2017 Blood Pressure 1: 132/74 Code: 8480-6 BMI: 28.4 Code: 22951-7 Heart Rate 1: 78 bpm Height: 5'8" SpO2: 97% Weight: 187 lbs 04/10/2017 Blood Pressure 1: 126/68 Code: 8480-6 BMI: 29.5 Code: 10218-6 Heart Rate 1: 68 bpm Height: 5'8" SpO2: 92% Temperature: 37.5 (C ) / 99.5 (F) Weight: 194 lbs 03/29/2017 Blood Pressure 1: 116/76 Code: 8480-6 BMI: 29.6 Code: 40343-4 Heart Rate 1: 61 bpm Height: 5'8" SpO2: 98% Weight: 195 lbs 02/06/2017 Blood Pressure 1: 130/74 Code: 8480-6 BMI: 30.4 Code: 50202-6 Heart Rate 1: 71 bpm Height: 5'8" SpO2: 98% Weight: 200 lbs 11/06/2016 Blood Pressure 1: 140/74 Code: 8480-6 BMI: 29.5 Code: 20513-3 Heart Rate 1: 76 bpm Height: 5'8" SpO2: 96% Weight: 194 lbs 09/27/2016 Blood Pressure 1: 138/78 Code: 8480-6 BMI: 29.6 Code: 91717-2 Heart Rate 1: 68 bpm Height: 5'8" SpO2: 97% Weight: 195 lbs 03/21/2016 Blood Pressure 1: 148/82 Code: 8480-6 BMI: 30.6 Code: 83622-9 Heart Rate 1: 67 bpm Height: 5'8" SpO2: 98% Weight: 201 lbs 02/01/2016 Blood Pressure 1: 128/86 Code: 8480-6 BMI: 30.3 Code: 28023-0 Heart Rate 1: 84 bpm Height: 5'8" SpO2: 96% Weight: 199 lbs 11/23/2015 Blood Pressure 1: 132/76 Code: 8480-6 BMI: 30.4 Code: 38535-0 Heart Rate 1: 81 bpm Height: 5'8" SpO2: 98% Weight: 200 lbs 10/14/2015 Blood Pressure 1: 120/80 Code: 8480-6 BMI: 30.4 Code: 08664-0 Heart Rate 1: 87 bpm Height: 5'8" SpO2: 97% Weight: 200 lbs 07/20/2015 Blood Pressure 1: 132/84 Code: 8480-6 BMI: 31.0 Code: 29140-2 Heart Rate 1: 78 bpm Height: 5'8" SpO2: 96% Weight: 204 lbs 07/06/2015 Blood Pressure 1: 130/78 Code: 8480-6 BMI: 31.0 Code: 23550-5 Heart Rate 1: 80 bpm Height: 5'8" SpO2: 98% Weight: 204 lbs 03/29/2015 Blood Pressure 1: 132/82 Code: 8480-6 BMI: 29.6 Code: 32529-8 Heart Rate 1: 76 bpm Height: 5'8" SpO2: 96% Weight: 195 lbs 03/08/2015 Blood Pressure 1: 126/84 Code: 8480-6 BMI: 30.2 Code: 20558-0 Heart Rate 1: 101 bpm Height: 5'8" SpO2: 98% Weight: 198 lbs 8 oz 02/02/2015 Blood Pressure 1: 132/86 Code: 8480-6 Heart Rate 1: 86 bpm SpO2: 98% Temperature: 36.6 (C ) / 97.8 (F) Weight: 198 lbs 09/22/2014 Blood Pressure 1: 128/80 Code: 8480-6 BMI: 29.3 Code: 03999-6 Heart Rate 1: 85 bpm Height: 5'8" SpO2: 98% Weight: 193 lbs Functional Status No Functional Status data History of Present Illness Symptom Name Status Resu lt Effective Date Notes Quality chronic 11/22/2018 None Quality primary hypert [...] daily 11/06/2016 None cough Location in the roat 09/27/2016 None cough Quality acute 09/27/2016 [...] Encounters Encounter Performer Loca tion Codes Date ([id number]) 81188 EST. P ATIENT, LEVEL IV Diagnosis: Hypo-osmolality and hyponatremia[ICD10: E87.1] Diagnosis: Muscle weakness (generalized)[ICD10: M62.81] Diagnosis: Other emphysema[ICD10: J43.8] Lucrecia Parsons MD, [facility] CPT- 4: 14009 11/22/2018 [id number] EST. PATIENT, LEVEL V Diagnosis: Muscle weakness (generalized)[ICD10: M62.81] Diagnosis: Rash and other nonspecific skin eruption[ICD10: R21] Diagnosis: Other hemorrhoids[ICD10: K64.8] Diagnosis: Hypo-osmolality and hyponatremia[ICD10: E87.1] Diagnosis: Other emphysema[ICD10: J43.8] Diagnosis: Paroxysmal atrial fibrillation[ICD10: I48.0] Diagnosis: Encounter for follow-up examination after completed treatment for conditions other than malignant neoplasm[ICD10: Z09] Diagnosis: Essential (primary) hypertension[ICD10: I10] Lucrecia Parsons MD, [facility] CPT-4: 15772 11/01/2018 67039 EST. PATIENT, LEVEL IV Diagnosis: Other acute sinusitis[ICD10: J01.80] Diagnosis: Other allergic rhinitis[ICD10: J30.89] Diagnosis: Other mucopurulent conjunctivitis, right eye[ICD10: H10.021] Sandra Parsons MD, [facility] CPT-4: 67511 07/08/2018 63026 EST. PATIENT, LEVEL III Diagnosis: Cellulitis of right upper limb[ICD10: L03.113] Sandra Parsons MD, [facility] CPT-4: 55141 06/04/2018 ([id number]) 02749 EST. P ATIENT, LEVEL IV Diagnosis: Essential (primary) hypertension[ICD10: I10] Diagnosis: Chronic atrial fibrillation[ICD10: I48.2] Diagnosis: Mixed hyperlipidemia[ICD10: E78.2] Steffany Parsons MD, [facility] CPT- 4: 50649 04/23/2018 19255 EST. PATIENT, LEVEL IV Diagnosis: Other acute sinusitis[ICD10: J01.80] Diagnosis: Other allergic rhinitis[ICD10: J30.89] Sandra Parsons MD, [facility] CPT-4: 52114 02/28/2018 38146 EST. PATIENT, LEVEL IV Diagnosis: Other acute sinusitis[ICD10: J01.80] Diagnosis: Other allergic rhinitis[ICD10: J30.89] Sandra Parsons MD, [facility] CPT-4: 29115 02/19/2018 01520 EST. PATIENT, LEVEL III Diagnosis: Acute laryngopharyngitis[ICD10: J06.0] Diagnosis: Other allergic rhinitis[ICD10: J30.89] Sandra Parsons MD, [facility] CPT-4: 50985 11/09/2017 ([id number]) 82942 EST. P ATIENT, LEVEL IV Diagnosis: Essential (primary) hypertension[ICD10: I10] Diagnosis: Chronic atrial fibrillation[ICD10: I48.2] Steffany Parsons MD, [facility] CPT-4: 62624 10/22/2017 ([id number]) 24964 EST. P ATIENT, LEVEL IV Diagnosis: Essential (primary) hypertension[ICD10: I10] Diagnosis: Chronic atrial fibrillation[ICD10: I48.2] Diagnosis: Cough[ICD10: R05] Steffany Parsons MD, [facility] CPT-4: 47828 07/23/2017 ([id number]) 17035 EST. P ATIENT, LEVEL III Diagnosis: Cough[ICD10: R05] Diagnosis: Other allergic rhinitis[ICD10: J30.89] Diagnosis: Chronic obstructive pulmonary disease with (acute) exacerbation[ICD10: J44.1] Lucrecia Parsons MD, [facility] CPT-4: 74453 07/09/2017 ([id number]) 22363 EST. P ATIENT, LEVEL III Diagnosis: Cough[ICD10: R05] Diagnosis: Other allergic rhinitis[ICD10: J30.89] Diagnosis: Chronic obstructive pulmonary disease with (acute) exacerbation[ICD10: J44.1] Lucrecia Parsons MD, [facility] CPT-4: 70540 06/29/2017 ([id number]) 37988 EST. P ATIENT, LEVEL III Diagnosis: Essential (primary) hypertension[ICD10: I10] Diagnosis: Cough[ICD10: R05] Steffany Parsons MD, [facility] CPT-4: 37969 04/23/2017 ([id number]) 61259 EST. P ATIENT, LEVEL IV Diagnosis: Hemoptysis[ICD10: R04.2] Diagnosis: Essential (primary) hypertension[ICD10: I10] Diagnosis: Chronic obstructive pulmonary disease with acute lower respiratory infection[ICD10: J44.0] Steffany Parsons MD, [facility] CPT-4: 36924 04/10/2017 99677 EST. PATIENT, LEVEL III Diagnosis: Acute laryngopharyngitis[ICD10: J06.0] Diagnosis: Other allergic rhinitis[ICD10: J30.89] Sandra Parsons MD, [facility] CPT-4: 62345 03/29/2017 ([id number]) 34993 EST. P ATIENT, LEVEL III Diagnosis: Pneumonia due to Mycoplasma pneumoniae[ICD10: J15.7] Diagnosis: Cough[ICD10: R05] Diagnosis: Other chest pain[ICD10: R07.89] Steffany Parsons MD, [facility] CPT-4: 22273 02/06/2017 62868 EST. PATIENT, LEVEL IV Diagnosis: Cough[ICD10: R05] Diagnosis: Shortness of breath[ICD10: R06.02] Diagnosis: Gastro-esophageal reflux disease without esophagitis[ICD10: K21.9] Sandra Parsons MD, [facility] CPT-4: 29048 11/06/2016 78276 EST. PATIENT, LEVEL IV Diagnosis: Other allergic rhinitis[ICD10: J30.89] Diagnosis: Acute bronchitis due to other specified organisms[ICD10: J20.8] Sandra Parsons MD, [facility] CPT-4: 83524 09/27/2016 ([id number]) 10997 EST. P ATIENT, LEVEL IV Diagnosis: Essential (primary) hypertension[ICD10: I10] Diagnosis: Chronic atrial fibrillation[ICD10: I48.2] Diagnosis: Encounter for therapeutic drug level monitoring[ICD10: Z51.81] Steffany Parsons MD, [facility] CPT-4: 86483 03/21/2016 ([id number]) 15743 EST. 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 P ATIENT, LEVEL III Diagnosis: Allergic rhinitis due to pollen[ICD10: J30.1] Diagnosis: Actinic keratosis[ICD10: L57.0] Lucrecia Parsons MD, [facility] CPT- 4: 78711 10/14/2015 ([id number]) 94988 EST. P ATIENT, LEVEL IV Diagnosis: Essential (primary) hypertension[ICD10: I10] Diagnosis: Chronic atrial fibrillation[ICD10: I48.2] Steffany Parsons MD, [facility] CPT-4: 83195 07/06/2015 86396 EST. PATIENT, LEVEL III Diagnosis: Essential (primary) hypertension[ICD10: I10] Diagnosis: Chronic atrial fibrillation[ICD10: I48.2] Diagnosis: Shortness of breath[ICD10: R06.02] Diagnosis: Melena[ICD10: K92.1] Sandra Parsons MD, [facility] CPT-4: 26587 03/29/2015 ([id number]) 59951 EST. P ATIENT, LEVEL IV Diagnosis: Essential (primary) hypertension[ICD10: I10] Diagnosis: Chronic atrial fibrillation[ICD10: I48.2] Diagnosis: Cough[ICD10: R05] [facility] CPT-4: 52952 03/08/2015 ([id number]) 27540 EST. P ATIENT, LEVEL III Diagnosis: Other seasonal allergic rhinitis[ICD10: J30.2] Diagnosis: Other lesions of oral mucosa[ICD10: K13.79] Lucrecia Parsons MD, [facility] CPT-4: 06131 02/02/2015 ([id number]) OFFICE [facility] - LEVEL 4 Diagnosis: ESSENTIAL HYPERTENSION[ICD9: 401.9] Diagnosis: HYPERLIPIDEMIA[ICD9: 272.4] Diagnosis: ACTINIC KERATOSIS[ICD9: 702.0] Steffany Parsons MD, [facility] CPT-4: 53424 09/22/2014 Plan of Care Planned Activity Notes C odes Status Date Visit Plan: Low sodium -repeat labs today-continue gatorade Weakness -post prolonged hospitalization -patient is doing well -transferring with stand by assist -passed home safety evaluation -plans to d/c to home on 12/04/18 Emphysema- patient is off oxygen and breathing treatments decreased to three times daily -continues to f/u with Dr Mijares 11/22/2018 Appointment: Lucrecia Yeager WPtel: [address] [place], [place] [phone] (30 min) [facility] 11/22/2018 Patient Education: Patient Medication Summary Completed [...] Summary Completed 11/01/2018 Appointment: Steffany Parsons WPtel: [phone] [phone] (15 min) Moderate 10/22/2018 Appointment: Steffany Parsons WPtel: [phone] [phone] (15 min) Moderate 09/30/2018 Appointment: Steffany Parsons WPtel: [phone] [phone] (15 min) Moderate 09/19/2018 Visit Plan: Sinusitis [...] times daily. 07/08/2018 Appointment: Sandra Tim WPtel: [phone] [phone] (15 min) Moderate 07/08/2018 Patient Education: Patient [...] time. 04/23/2018 App[facility]ment[phone] ([facility] min) Moderate 04/23/2018 Patient Education: [...] allergy spray. 02/28/2018 Appointment: Sandra Tim WPtel: [address] [place], [place] [phone] (15 min) Moderate 02/28/2018 Patient Education: Patient [...] allergy spray. 02/19/2018 Appointment: Sandra Tim WPtel: [address] [place] [phone] (15 min) Moderate 02/19/2018 Patient Education: Patient [...] allergy spray. 11/09/2017 Appointment: Sandra Tim WPtel: [address] [place], [place] [phone] (15 min) Moderate 11/09/2017 Patient Education: Patient [...] uncontrolled. 10/22/2017 Appointment: Steffany Parsons WPtel: [phone] [phone] (15 min) Moderate 10/22/2017 Patient Education: Patient [...] spray) 07/23/2017 Appointment: Steffany Parsons WPtel: [phone] [phone] (15 min) Moderate 07/23/2017 Patient Education: Patient Medication Summary Completed 07/23/2017 Visit Plan: COPD EXACERBATION - [employer] D is a chronic problem for this [...] changes. 07/09/2017 Appointment: Lucrecia Yeager WPtel: [phone] [phone] (30 min) Complex 07/09/2017 Patient Education: Patient [...] changes. 06/29/2017 Appointment: Lucrecia Yeager WPtel: [phone] [phone] (15 min) Moderate 06/29/2017 Patient Education: Patient Medication Summary Completed 06/29/2017 Appointment: Steffany Parsons WPtel: [phone] [phone] (15 min) Moderate 04/30/2017 Visit Plan: Hypertension [...] treatments. 04/23/2017 Appointment: Steffany Parsons WPtel: [phone] [phone] (15 min) Moderate 04/23/2017 Patient Education: Patient Medication Summary Completed 04/23/2017 Visit Plan: Hemoptysis and COPD exa cerbation - continue with antibiotics, rx for antifungal tablet and suspension. chest xray ordered, monitor symptoms. Pt to stop aspirin x 1 week, continue with eliquis. call if s ymptoms are not improving. rx for phenergan with codeine. 04/10/2017 Appointment: Steffany Parsons WPtel: [phone] [phone] (15 min) Moderate 04/10/2017 Patient Education: Patient [...] spray. 03/29/2017 Appointment: Sandra Tim WPtel: [phone] [phone] (15 min) Moderate 03/29/2017 Patient Education: Patient Medication Summary Completed 03/29/2017 Visit Plan: Pneumonia - Pt has been diagnosed with pneumonia by physical exam. A chest xray has been ordered as have antibiotics. The pt is aware of the diagnosis and the need for acute treatment of this illness. Cough - rx for promethazine/codeine syrup for cough. 02/06/2017 Appointment: [phone] (15 min) Moderate 02/06/2017 [...] improving. 11/06/2016 [phone] ([facility] min) Moderate 11/06/2016 Patient Education: Patient [...] worsen. 09/27/2016 [facility]ment: [phone] (30 min) Complex 09/27/2016 Patient [...] uncontrolled. 03/21/2016 Appointment: Steffany Parsons WPtel: [phone] (15 min) Moderate 03/21/2016 Patient Education: Patient Medication Summary Completed 03/21/2016 Patient Education: Obesity Completed 03/21/2016 Visit Plan: Diarrhea-recent abx use -check stool for cdiff- increase probiotic to twice daily-bland diet advance as tolerated-call if symptoms do not resolve or if any worse. Patient verbalized understanding of pl an. 02/01/2016 Appointment: Lucrecia Yeager WPtel: [phone] (15 min) Moderate 02/01/2016 Patient Education: Patient Medication Summary Completed 02/01/2016 Patient Education: Obesity Completed 02/01/2016 Referral: Alexi Honeycutt [facility] Info faxed Completed 11/27/2015 Visit Plan: Hypertension [...] Summary Completed 11/23/2015 Appointment: Steffany Parsons WPtel: [phone] [facility] (15 min) Moderate 11/15/2015 Visit [...] not heal 10/14/2015 Appointment: Lucrecia Yeager WPtel: [phone] (15 min) Moderate 10/14/2015 Patient Education: Patient [...] acute concerns. 07/20/2015 Appointment: Lucrecia Yeager WPtel: [phone] [phone] (30 min) Complex 07/20/2015 Patient Education: Patient [...] acute concerns. 07/06/2015 Appointment: Jaqueline Steffany WPtel: [facility] (15 min) Moderate 07/06/2015 [...] - pt has an upcoming appointment with virtual reality specialist to possibly have an ablation done. [...] Completed 03/08/2015 [facility] Referral Completed 02/13/2015 Visit Plan: Allergies - [...] 02/02/2015 Care Plan: Referral Order SNOMED-CT : [id number] Ordered 02/02/2015 Visit Plan: Hypertension - well [...] not improving. 09/22/2014 Appointment: Steffany Parsons WPtel: [address] [place] [phone] [place] New Patient 09/22/2014 Patient Education: Patient Medication Summary Completed 09/22/2014 Patient Education: Hypertension Completed 09/22/2014 [facility] Referral Initiated Instructions Comment . Hypertension - [...] and start the doxycycline take a probiotic ([email or web address], [employer] or generic) twice a day while on [...] eye four times daily. . Hemoptysis and [employer] D exacerbation - continue with antibiotics, rx [...] - pt has an upcoming appointment with virtual reality specialist to possibly have an ablation done. [...] hospitalization -he is doing PT/OT at [facility] -he did stand for 10 [...]
--- OUTSIDE RECORDS SUMMARY | 2019-07-22 16:06 | XMS REPORT | CCD ---
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 Role Phone PP Unavailable CCM Unavailable Summary Purpose Interface Exchange Insurance Providers Payer name Policy type / Coverage type Covered republican ID Effective Begin Date Effective End Date [facility] Commercial Insurance [id number] Unknown Unknown Family history Father Diagnosis Age At Onset Prostate Cancer Unknown Runs in the family Diagnosis Age At Onset Hypertension Unknown Mother Diagnosis Age At Onset No Family Disease Entered N/A Social History Social History Element Codes Description Effective Dates Marital status Unknown M arried Mary 02/06/2017 Number of children Unknown 5 09/22/[address]: 1032163 Quit over 10 years ago 09/22/[address]: 308136822 Never drinks alcohol 09/22/2014 Allergies, Adverse Reactions, [...] Instruc tions Start Date Stop Date Sta tus Fill Instructions aspirin 81 mg tablet RxNorm: 492499 1 Tablet(s) PO every other day 11/22/2018 No Stop Date Active metoprolol tartrate 25 mg tablet RxNorm: 844169 1 Tablet(s) PO BID 11/01/2018 01/24/2020 Active ipratropium-albutero l 0.5 mg-3 mg(2.5 mg base)/3 mL nebulization soln RxNorm: 4978606 1 INH Q4H and q 2 hours prn 11/02/19 No Stop Date Active melatonin 10 mg disi ntegrating tablet RxNorm: 8129508 1 Tablet(s) PO daily 11/01/2018 No Stop Date Active Flonase Allergy Reli ef 50 mcg/actuation nasal spray,suspension RxNorm: 7721502 2 [place] NASAL daily as needed 2018 No Stop Date Active Lasix 20 mg tablet RxNorm: 391736 Tablet(s) PO Q72H 11/01/2018 No Stop Date Active Lialda 1.2 gram tabl et,delayed release RxNorm: 005802 2 Tablet(s) PO QHS -P rescried by Dr. Seymour 11/01/2018 No Stop Date Active diphenoxylate-atropi ne 2.5 mg-0.025 mg tablet RxNorm: 1906787 1/2 Tablet(s) PO Q12 H and q 1 q 6 hours prn 11/01/2018 No Stop Date Active Imodium A-D 2 mg tablet RxNorm: 025671 1/2 Tablet(s) PO BID 11/01/2018 No Stop Date Active losartan 50 mg tablet RxNorm: 278585 1 Tablet(s) PO QPM at supper 11/01/2018 No Stop Date Active Coumadin 3 mg tablet RxNorm: 197092 1 Tablet(s) PO TIW M W F 10/30/2018 11/28/2018 Active Klor-Con M20 mEq tab let,extended release RxNorm: 9428853 TAKE 1 TABLET EVERY MORNING 10/01/2018 10/31/2018 Inactive doxycycline hyclate 100 mg capsule RxNorm: 4499009 1 Capsule(s) PO BID 07/31/2018 08/09/2018 In active doxycycline hyclate 100 mg capsule RxNorm: 2296351 1 Capsule(s) PO BID 07/08/2018 07/17/2018 In active Kenalog 40 mg/mL nori pension for injection RxNorm: 4474794 1 Milliliter(s) Inj 07/08/2018 07/08/2018 In active ciprofloxacin 0.3 % eye drops RxNorm: 465833 2 Drop(s) ophthalmic (eye) Q2H while awake x 2 days then Q4H x 5 days 07/08/2018 10/31/2018 Inactive Keflex 500 mg capsule RxNorm: 261214 1 Capsule(s) PO TID 07/02/2018 07/08/2018 Inactive dapsone 100 mg tablet RxNorm: 454206 1 Tablet(s) PO daily 06/04/2018 06/10/2018 Inactive doxycycline hyclate 100 mg capsule RxNorm: 4667547 1 Capsule(s) PO BID 06/04/2018 06/13/2018 In active Lasix 40 mg tablet RxNorm: 563861 TAKE 1 TABLET DAILY 04/22/2018 10/31/2018 Inactive prednisone 20 mg tablet RxNorm: 651131 2 Tablet(s) PO daily 02/28/2018 03/04/2018 Inactive START TOMORROW Keflex 500 mg capsule RxNorm: 967717 1 Capsule(s) PO TID 02/28/2018 03/09/2018 Inactive ceftriaxone 500 mg s olution for injection RxNorm: 5037105 Inj 02/28/2018 02/28/2018 Inactive Kenalog 40 mg/mL nori pension for injection RxNorm: 0857511 Milliliter(s) Inj 02/26/2018 02/26/2018 In active Keflex 500 mg capsule RxNorm: 407529 1 Capsule(s) PO TID 02/19/2018 02/25/2018 Inactive Klor-Con M20 mEq tab let,extended release RxNorm: 6942706 TAKE 1 TABLET EVERY MORNING 12/04/2017 09/30/2018 Inactive prednisone 20 mg tablet RxNorm: 191934 2 Tablet(s) PO daily 11/16/2017 11/20/2017 Inactive START TOMORROW Zithromax Z-Mau 250 mg tablet RxNorm: 517651 1 Tablet(s) PO daily 11/16/2017 11/20/2017 Inactive Zithromax Z-Mau 250 mg tablet RxNorm: 648829 1 Tablet(s) PO daily 11/16/2017 11/15/2017 Inactive Keflex 500 mg capsule RxNorm: 021744 1 Capsule(s) PO TID 11/09/2017 11/15/2017 Inactive Zithromax 250 mg tablet RxNorm: 682191 [address] day and 1 tab po on day 2-5 Tablet(s) PO 08/30/2017 09/03/2017 Inactive zpack x 1 doxycycline hyclate 100 mg tablet RxNorm: 901726 1 Tablet(s) PO BID 07/09/2017 07/15/2017 Inactive prednisone 20 mg tablet RxNorm: 163443 2 Tablet(s) PO daily 06/29/2017 07/01/2017 Inactive START TOMORROW Kenalog 40 mg/mL nori pension for injection RxNorm: 0223741 Milliliter(s) Inj 06/29/2017 06/29/2017 In active Lasix 40 mg tablet RxNorm: 739816 TAKE 1 TABLET DAILY 04/24/2017 04/21/2018 Inactive Diflucan 150 mg tablet RxNorm: 647159 1 Tablet(s) PO daily 04/10/2017 04/16/2017 Inactive Bactrim DS 800 mg-16 0 mg tablet RxNorm: 579744 1 Tablet(s) PO BID 04/10/2017 04/16/2017 Inactive nystatin 100,000 uni t/mL oral suspension RxNorm: 437189 5 Milliliter(s) PO QI D 04/10/2017 04/19/2017 In active cefdinir 300 mg capsule RxNorm: 955996 1 Capsule(s) PO BID 03/28/2017 04/06/2017 Inactive cefdinir 300 mg capsule RxNorm: 132300 1 Capsule(s) PO BID 02/06/2017 02/15/2017 Inactive ceftriaxone 500 mg s olution for injection RxNorm: 8956395 Inj 02/06/2017 02/06/2017 Inactive omeprazole 20 mg tab let,delayed release RxNorm: 755916 1 Tablet(s) PO daily 11/06/2016 12/05/2016 In active Phenergan with Codei ne Syrup RxNorm: 5 Milliliter(s) PO QID as n eeded 10/30/2016 10/31/2018 In active Tessalon Perles 100 mg capsule RxNorm: 902039 1-2 Capsule(s) PO TID as needed cough 10/30/2016 11/08/2016 In active Klor-Con M20 mEq tab let,extended release RxNorm: 0043810 TAKE 1 TABLET EVERY MORNING 10/26/2016 12/03/2017 Inactive ceftriaxone 500 mg s olution for injection RxNorm: 4887194 1 Milliliter(s) Inj 09/27/2016 09/27/2016 In active Phenergan with Codei ne Syrup RxNorm: 5 Milliliter(s) PO QID as n eeded 09/27/2016 10/29/2016 In active Tessalon Perles 100 mg capsule RxNorm: 930576 1-2 Capsule(s) PO TID as needed cough 09/27/2016 09/29/2016 In active Kenalog 40 mg/mL nori pension for injection RxNorm: 2822620 1 Milliliter(s) Inj 09/27/2016 09/27/2016 In active Flagyl 500 mg tablet RxNorm: 940564 1 Tablet(s) PO TID 2016 08/05/2016 Inactive Lasix 40 mg tablet RxNorm: 626328 TAKE 1 TABLET DAILY 07/26/2016 04/23/2017 Inactive Zithromax 250 mg tablet RxNorm: 666639 [address] day and 1 tab po on day 2-5 Tablet(s) PO 03/28/2016 03/27/2016 Inactive zpack x 1 Zithromax 250 mg tablet RxNorm: 221410 [address] day and 1 tab po on day 2-5 Tablet(s) PO 03/28/2016 04/01/2016 Inactive zpack x 1 Flagyl 500 mg tablet RxNorm: 691846 1 Tablet(s) PO TID 02/07/2016 02/06/2016 Inactive Flagyl 500 mg tablet RxNorm: 183379 1 Tablet(s) PO TID 02/07/2016 02/16/2016 Inactive Zyrtec-D 5 mg-120 mg tablet,extended release RxNorm: 2893831 1 Tablet(s) PO daily as needed allergies 11/23/2015 10/31/2018 Inactive Imodium A-D 2 mg tablet RxNorm: 150622 1/2 Tablet(s) PO daily 11/23/2015 10/31/2018 Inactive Mucinex 600 mg table t, extended release RxNorm: 509097 1 Tablet(s) PO BID as needed 11/23/2015 01/21/2016 In active Lasix 40 mg tablet RxNorm: 063079 TAKE 1 TABLET DAILY 11/01/2015 07/25/2016 Inactive Klor-Con M20 mEq tab let,extended release RxNorm: 6152016 TAKE 1 TABLET EVERY MORNING 11/01/2015 10/25/2016 Inactive Flonase Allergy Reli ef 50 mcg/actuation nasal spray,suspension RxNorm: 0465741 2 [place] NASAL daily 07/20/2015 10/31/2018 Inactive Kenalog 40 mg/mL nori pension for injection RxNorm: 8889624 Milliliter(s) Inj 02/02/2015 02/02/2015 In active Plavix 75 mg tablet RxNorm: 033713 1 Tablet(s) PO daily 10/05/2014 03/07/2015 Inactive Klor-Con M20 mEq tab let,extended release RxNorm: 594652 1 Tablet(s) PO QAM 10/05/2014 10/31/2015 In active Lasix 40 mg tablet RxNorm: 052642 1 Tablet(s) PO daily 10/05/2014 10/31/2015 Inactive Crestor 5 mg tablet RxNorm: 865242 1/2 Tablet(s) PO daily 10/05/2014 10/31/2018 Inactive Efudex 5 % topical c ream RxNorm: 469337 1 Application TOP BID x 2 weeks, allow healing x 1 -2 weeks, then reuse 10/05/2014 07/05/2015 Inactive metoprolol tartrate 100 mg tablet RxNorm: 541054 1 Tablet(s) PO BID 10/05/2014 12/28/2015 Inactive Pradaxa 150 mg capsule RxNorm: 6340744 1 Capsule(s) PO BID 10/05/2014 04/09/2017 Inactive amlodipine 10 mg tablet RxNorm: 965991 1/2 Tablet(s) PO QAM 10/05/2014 07/05/2015 Inactive Efudex 5 % topical c ream RxNorm: 148210 1 Application TOP BID x 2 weeks, allow healing x 1 -2 weeks, then reuse 09/22/2014 10/04/2014 Inactive Klor-Con M20 mEq tab let,extended release RxNorm: 810102 1 Tablet(s) PO QAM 09/22/2014 10/04/2014 In active Lasix 40 mg tablet RxNorm: 784286 1 Tablet(s) PO daily 09/22/2014 10/04/2014 Inactive hydralazine 25 mg ta blet RxNorm: 389953 1 Tablet(s) PO Q6 as needed No Start Date Active Lactobacillus acidop hilus 1 billion cell tablet RxNorm: 169569 1 Tablet(s) PO BID No Start Date Active spironolactone 25 mg tablet RxNorm: 684590 1 Tablet(s) PO daily No Start Date Active duloxetine 20 mg cap marck,delayed release RxNorm: 695955 1 Capsule(s) PO BID No Start Date Active Centrum Silver oral RxNorm: 75539 oral No Start Date Active diltiazem CD 120 mg capsule,extended release 24 hr RxNorm: 249189 1 Capsule(s) PO daily No Start Date Active diclofenac sodium 75 mg tablet,delayed release RxNorm: 208700 1 Tablet(s) PO TID as needed No Start Date Active Coumadin 2 mg tablet RxNorm: 945329 1 Tablet(s) PO 4 times a week T Sun No Start Date Active Emla topical RxNorm: 77829 topical No Start Date Active Colace 100 mg capsule RxNorm: 2189959 1 Capsule(s) PO BID No Start Date Active magnesium 250 mg tablet RxNorm: 1 Tablet(s) PO daily No Start Date Active loratadine 10 mg tablet RxNorm: 500056 1 Tablet(s) PO daily No Start Date Active Vitamin D3 5,000 uni t tablet RxNorm: 624301 1 Tablet(s) PO BID No Start Date Active pantoprazole 40 mg t ablet,delayed release RxNorm: 856110 1 Tablet(s) PO daily No Start Date Active Glucosamine Chondroi t Complx Advan oral RxNorm: oral No Start D ate Active Cartia XT 180 mg cap marck,extended release RxNorm: 886182 2 Capsule(s) PO daily No Start Date 10/31/2018 Inactive cetirizine 10 mg tablet RxNorm: 5931364 1 Tablet(s) PO daily at lunch No Start Date 10/31/2018 Inactive Canasa 1,000 mg rect al suppository RxNorm: 561210 [address]L QHS Dr seymour No Start Date 10/31/2018 Inactive Lialda 1.2 gram tabl et,delayed release RxNorm: 498359 1 Tablet(s) PO QHS -P rescried by Dr. Seymour No Start Date 10/31/2018 Inactive melatonin 1 mg tablet RxNorm: 330612 1 Tablet(s) PO daily No Start Date 10/31/2018 Inactive Plavix 75 mg tablet RxNorm: 544558 1 Tablet(s) PO daily No Start Date 10/04/2014 Inactive Klor-Con M20 mEq tab let,extended release RxNorm: 958003 1 Tablet(s) PO QAM No Start Date 09/21/2014 Inactive diphenoxylate-atropi ne 2.5 mg-0.025 mg tablet RxNorm: 5536057 1/2 Tablet(s) PO Q12 H No Start Date 10/31/2018 Inactive Eliquis 5 mg tablet RxNorm: 1738011 1 Tablet(s) PO BID Dr Avila No Start Date 10/29/2018 Inactive aspirin 81 mg tablet RxNorm: 249434 1 Tablet(s) PO daily No Start Date 11/21/2018 Inactive magnesium 200 mg (as magnesium oxide) tablet RxNorm: 699187 1 Tablet(s) PO daily No Start Date 11/01/2018 Inactive Imodium oral RxNorm: oral No Start Date 11/21 Inactive Lasix 40 mg tablet RxNorm: 299394 1 Tablet(s) PO daily No Start Date 09/21/2014 Inactive amlodipine 10 mg tablet RxNorm: 711188 1/2 Tablet(s) PO QAM No Start Date 10/04/2014 Inactive Crestor 5 mg tablet RxNorm: 001153 1/2 Tablet(s) PO daily No Start Date 10/04/2014 Inactive Flonase Allergy Reli ef 50 mcg/actuation nasal spray,suspension RxNorm: 1 [place] NASAL daily No Start Date 07/19/2015 Inactive aspirin 81 mg capsul e,delayed release RxNorm: 221705 1 Capsule(s) PO daily No Start Date 10/31/2018 Inactive losartan 25 mg tablet RxNorm: 703651 1 Tablet(s) PO QPM at supper No Start Date 10/31/2018 Inactive metoprolol tartrate 100 mg tablet RxNorm: 788135 1 Tablet(s) PO BID No Start Date 10/04/2014 Inactive ipratropium-albutero l 0.5 mg-3 mg(2.5 mg base)/3 mL nebulization soln RxNorm: 5431956 1 INH Q4H No Start Date 10/31/2018 Inactive digoxin 250 mcg tablet RxNorm: 086306 1 Tablet(s) PO daily No Start Date 10/31/2018 Inactive Probiotic 4X oral RxNorm: 7859376 oral No Start Date 07/06/2015 Inactive Probiotic oral RxNorm: 6205 oral No Start Date 10/31/2018 Inactive Pradaxa 150 mg capsule RxNorm: 6209457 1 Capsule(s) PO BID No Start Date 10/04/2014 Inactive Medication Administered Medication Codes Instruc tions Start Date Status Kenalog 40 mg/mL suspension for injection RxNorm: 5154636 1Milliliter 07/08/2018 N o longer Active ceftriaxone 500 mg solution for injection RxNorm: 9587421 02/28/2018 No longer A ctive Kenalog 40 mg/mL suspension for injection RxNorm: 2979189 Milliliter 02/26/2018 No longer Active Kenalog 40 mg/mL suspension for injection RxNorm: 3465976 Milliliter 06/29/2017 No longer Active ceftriaxone 500 mg solution for injection RxNorm: 4785763 02/06/2017 No longer A ctive Kenalog 40 mg/mL suspension for injection RxNorm: 9803521 1Milliliter 09/27/2016 N o longer Active ceftriaxone 500 mg solution for injection RxNorm: 7416061 1Milliliter 09/27/2016 N o longer Active Kenalog 40 mg/mL suspension for injection RxNorm: 2721225 Milliliter 02/02/2015 No longer Active Immunizations Vaccine [...] 31.4 pg 10/23/2017 Cbc With Differential Ord2 [place]% 8.5 % 10/23/2017 Cbc With Differential Ord2 [...] 2.73 K/ul 10/23/2017 Cbc With Differential Ord2 [place] ABS# 0.9 K/ul 10/23/2017 Cbc With Differential Ord2 Eos ABS# 0.6 K/ul 10/23/2017 Cbc With Differential Ord2 Baso ABS# 0.0 K/ul 10/23/2017 Digoxin Ord9 DIGOXIN 1.0 NG/ML 10/23/2017 Lipid Ord30 CHOL 108 mg/dL 10/23/2017 Lipid Ord30 HDL 39.0 mg/dl 10/23/2017 Lipid Ord30 TRIG 175 mg/dL 10/23/2017 Lipid Ord30 LDL 34 mg/dL 10/23/2017 Lipid Ord30 C/HDL 2.8 Ratio 10/23/2017 Comp Metabolic Qek959 NA 140 mEq/L 10/23/2017 Comp Metabolic Plt387 K 4.1 mEq/L 10/23/2017 Comp Metabolic Eqp107 CL 102 mEq/L 10/23/2017 Comp Metabolic Abv486 CO2 30.0 mEq/L 10/23/2017 Comp Metabolic Tqg182 AN ION GAP 12 10/23/2017 Comp Metabolic Ejs792 GL UCOSE 124 mg/dL 10/23/2017 Comp Metabolic Nvg285 Cr eat 1.1 mg/dL 10/23/2017 Comp Metabolic Lcd905 eG FR 71 ml/min/1.73m2 10/23 Comp Metabolic Qgn896 BUN 11 mg/dL 10/23/2017 Comp Metabolic Rhr476 B/ C Ratio 10.2 Ratio 10/23/2017 Comp Metabolic Gmo104 CA LCIUM 9.3 mg/dL 10/23/2017 Comp Metabolic Uum505 AL K PHOS 72 U/L 10/23/2017 Comp Metabolic Btf852 T(SGOT) 21 U/L 10/23/2017 Comp Metabolic Xgg989 AL T(SGPT) 17 U/L 10/23/2017 Comp Metabolic Vpb705 BI LI T 0.8 mg/dL 10/23/2017 Comp Metabolic Rxe207 AL BUMIN 4.3 g/dL 10/23/2017 Comp Metabolic Sfj134 TP RO 7.4 g/dL 10/23/2017 Comp Metabolic Jxk442 GL OB 3.1 g/dL 10/23/2017 Comp Metabolic Nus991 A/ G Ratio 1.4 Ratio 10/23/2017 Comp Metabolic Ned978 Os mo 280 mOsmo 10/23/2017 Tsh Ord6 TSH (3rd IS) 3.37 uIU/mL 10/23/2017 Test(s) Not Perfromed [id number] Test(s) Not Performed Test(s) Not Performed. See Below: 10/23/2017 Test(s) Not Perfromed [id number] TEST NAME PSA 10/23/2017 Test(s) Not Perfromed [id number] Rejection Reason PSA Performed yearly at Dr. Stone's Office 10/23/2017 Test(s) Not Perfromed [id number] COMMENT N/A 10/23/2017 Test(s) Not Perfromed [id number] Human Resources Partner Gian Johnson 10/23/2017 Comp Metabolic Uba747 NA 137 mEq/L 03/21/2016 Comp Metabolic Upl022 K 4.6 mEq/L 03/21/2016 Comp Metabolic Ptp322 CL 101 mEq/L 03/21/2016 Comp Metabolic Nrl346 CO2 31.0 mEq/L 03/21/2016 Comp Metabolic Ifh369 AN ION GAP 10 03/21/2016 Comp Metabolic Aie651 GL UCOSE 106 mg/dL 03/21/2016 Comp Metabolic Ler442 Cr eat 1.1 mg/dL 03/21/2016 Comp Metabolic Ler606 eG FR 69 ml/min/1.73m2 03/21 Comp Metabolic Owd408 BUN 11 mg/dL 03/21/2016 Comp Metabolic Isv806 B/ C Ratio 9.9 Ratio 03/21/2016 Comp Metabolic Oqw720 CA LCIUM 9.5 mg/dL 03/21/2016 Comp Metabolic Dhq075 AL K PHOS 88 U/L 03/21/2016 Comp Metabolic Lsy909 T(SGOT) 21 U/L 03/21/2016 Comp Metabolic Scr096 AL T(SGPT) 15 U/L 03/21/2016 Comp Metabolic Vso160 BI LI T 0.7 mg/dL 03/21/2016 Comp Metabolic Ujk289 AL BUMIN 4.2 g/dL 03/21/2016 Comp Metabolic Uab893 TP RO 7.9 g/dL 03/21/2016 Comp Metabolic Pce096 GL OB 3.7 g/dL 03/21/2016 Comp Metabolic Fuo065 A/ G Ratio 1.1 Ratio 03/21/2016 Comp Metabolic Vow668 Os mo 274 mOsmo 03/21/2016 Lipid Ord30 [...] 31.3 pg 03/21/2016 Cbc With Differential Ord2 [place]% 10.3 % 03/21/2016 Cbc With Differential Ord2 [...] 2.51 K/ul 03/21/2016 Cbc With Differential Ord2 [place] ABS# 1.2 K/ul 03/21/2016 Cbc With Differential Ord2 Eos ABS# 0.7 K/ul 03/21/2016 Cbc With Differential Ord2 Baso ABS# 0.0 K/ul 03/21/2016 Clostridium Diff Tox A/B Mzm755 Cdiff Negative 02/01/2016 Culture Mrsa [id number] MRSA CULTURE SEE NOTES 04/09/2015 Digoxin Ord9 [...] Ord9 DIGOXIN 1.0 NG/ML 03/11/2015 Comp Metabolic Lya066 NA 142 mEq/L 03/11/2015 Comp Metabolic Gvg013 K 4.4 mEq/L 03/11/2015 Comp Metabolic Imy682 CL 107 mEq/L 03/11/2015 Comp Metabolic Bra947 CO2 27.0 mEq/L 03/11/2015 Comp Metabolic Pse123 AN ION GAP 12 03/11/2015 Comp Metabolic Tri872 GL UCOSE 106 mg/dL 03/11/2015 Comp Metabolic Bkw009 Cr eat 1.1 mg/dL 03/11/2015 Comp Metabolic Ikc550 eG FR 68 ml/min/1.73m2 03/11 Comp Metabolic Zja724 BUN 16 mg/dL 03/11/2015 Comp Metabolic Wea457 B/ C Ratio 14.3 Ratio 03/11/2015 Comp Metabolic Avk770 CA LCIUM 9.5 mg/dL 03/11/2015 Comp Metabolic Gze042 AL K PHOS 82 U/L 03/11/2015 Comp Metabolic Drf489 T(SGOT) 20 U/L 03/11/2015 Comp Metabolic Uzz991 AL T(SGPT) 17 U/L 03/11/2015 Comp Metabolic Yaw734 BI LI T 0.4 mg/dL 03/11/2015 Comp Metabolic Evn625 AL BUMIN 4.0 g/dL 03/11/2015 Comp Metabolic Ucz446 TP RO 6.9 g/dL 03/11/2015 Comp Metabolic Woz332 GL OB 2.9 g/dL 03/11/2015 Comp Metabolic Pcb415 A/ G Ratio 1.4 Ratio 03/11/2015 Comp Metabolic Irp397 Os mo 285 mOsmo 03/11/2015 Metabolic Ord15 [...] inspection of skin Location: face 11/01/2018 right [place], forehead, l eft presybeterian - irrirated actinic keratosis Full Exam [...] inspection of skin Location: face 04/23/2018 right pres[place], forehead, l eft presy[place]eterian - irrirated actinic keratosis Full Exam [...] skin Location: face 10/22/2017 right pres[place], forehead, l eft presybeterian - irrirated actinic keratosis Full Exam [...] crackles 02/06/2017 None Full Exam - General [facility] Respiratory auscultation Upper lung field: Breath sounds [...] Exam - ENT Respiratory auscultation Diffuse: diminished 08/0 09/2016 None Full Exam - ENT Constitutional [...] skin Location: face 03/21/2016 right [place], forehead, l eft presy[place]eterian - irrirated actinic keratosis Full Exam [...] skin Location: face 07/06/2015 right [place]ybeterian, forehead, l eft presybeterian - irrirated actinic keratosis Full Exam [...] CPT-4: J3301 07/08/2018 THER/PROPH/DIAG INJ SC/IM CPT-4: 73112 07/08/2018 THER/PROPH/DIAG INJ SC/IM CPT-4: 64410 02/28/2018 ROCEPHIN, PER 250 MG CPT-4: J0696 02/28/2018 THER/PROPH/DIAG INJ SC/IM CPT-4: 65622 02/26/2018 TRIAMCINOLONE ACET I [place] NOS CPT-4: J3301 02/26/2018 PPPS, SUBSEQ VISIT CPT- 4: G0439 2017 TRIAMCINOLONE ACET I [place] NOS CPT-4: J3301 06/29/2017 THER/PROPH/DIAG INJ SC/IM CPT-4: 83419 02/06/2017 ROCEPHIN, PER 250 MG CPT-4: J0696 02/06/2017 ROCEPHIN, PER 250 MG CPT-4: J0696 09/27/2016 TRIAMCINOLONE ACET I [place] NOS CPT-4: J3301 09/27/2016 THER/PROPH/DIAG INJ SC/IM CPT-4: 54538 09/27/2016 DESTRUCT PREMALG LESION CPT-4: 28862 10/14/2015 DESTRUCT PREMALG LESION CPT-4: 82393 07/20/2015 DESTRUCT PREMALG LESION CPT-4: 43283 07/06/2015 DESTRUCT PREMALG LES 2-14 CPT-4: 90398 07/06/2015 TRIAMCINOLONE ACET I [place] NOS CPT-4: J3301 02/02/2015 Vital Signs Date Vital 11/22/2018 Blood Pressure 1: 110/58 Code: 8480-6 Heart Rate 1: 74 bpm Height: 5'8" SpO2: 98% Weight: 11/01/2018 Blood Pressure 1: 120/70 Code: 8480-6 Heart Rate 1: 72 bpm Height: SpO2: 98% Weight: 07/08/2018 Blood Pressure 1: 134/64 Code: 8480-6 BMI: 30.6 Code: 79662-8 Heart Rate 1: 79 bpm Height: 5'8" SpO2: 98% Weight: 201 lbs 06/04/2018 Blood Pressure 1: 130/62 Code: 8480-6 BMI: 30.6 Code: 28602-2 Heart Rate 1: 88 bpm Height: 5'8" SpO2: 97% Weight: 201 lbs 04/23/2018 Blood Pressure 1: 130/72 Code: 8480-6 BMI: 30.1 Code: 10372-1 Heart Rate 1: 74 bpm Height: 5'8" SpO2: 97% Weight: 198 lbs 02/28/2018 Blood Pressure 1: 124/72 Code: 8480-6 BMI: 30.0 Code: 25906-2 Heart Rate 1: 69 bpm Height: 5'8" SpO2: 97% Temperature: 36.6 (C ) / 97.8 (F) Weight: 197 lbs 02/19/2018 Blood Pressure 1: 128/76 Code: 8480-6 BMI: 30.0 Code: 35355-3 Heart Rate 1: 66 bpm Height: 5'8" SpO2: 97% Weight: 197 lbs 11/09/2017 Blood Pressure 1: 130/74 Code: 8480-6 BMI: 29.3 Code: 91360-7 Heart Rate 1: 81 bpm Height: 5'8" SpO2: 98% Temperature: 36.6 (C ) / 97.9 (F) Weight: 193 lbs 10/22/2017 Blood Pressure 1: 132/82 Code: 8480-6 BMI: 29.0 Code: 05203-6 Heart Rate 1: 80 bpm Height: 5'8" SpO2: 98% Weight: 191 lbs 2017 Blood Pressure 1: 142/68 Code: 8480-6 BMI: 28.7 Code: 86014-3 Heart Rate 1: 62 bpm Height: 5'8" SpO2: 98% Waist Measure (cm): 102 cm Weight: 189 lbs 07/23/2017 Blood Pressure 1: 138/84 Code: 8480-6 BMI: 29.0 Code: 84322-6 Heart Rate 1: 69 bpm Height: 5'8" SpO2: 98% Weight: 191 lbs 07/09/2017 Blood Pressure 1: 120/82 Code: 8480-6 BMI: 29.2 Code: 81678-3 Heart Rate 1: 80 bpm Height: 5'8" SpO2: 98% Weight: 192 lbs 06/29/2017 Blood Pressure 1: 140/82 Code: 8480-6 BMI: 29.5 Code: 96531-6 Heart Rate 1: 83 bpm Height: 5'8" SpO2: 98% Weight: 194 lbs 04/23/2017 Blood Pressure 1: 132/74 Code: 8480-6 BMI: 28.4 Code: 71927-2 Heart Rate 1: 78 bpm Height: 5'8" SpO2: 97% Weight: 187 lbs 04/10/2017 Blood Pressure 1: 126/68 Code: 8480-6 BMI: 29.5 Code: 16349-9 Heart Rate 1: 68 bpm Height: 5'8" SpO2: 92% Temperature: 37.5 (C ) / 99.5 (F) Weight: 194 lbs 03/29/2017 Blood Pressure 1: 116/76 Code: 8480-6 BMI: 29.6 Code: 08047-7 Heart Rate 1: 61 bpm Height: 5'8" SpO2: 98% Weight: 195 lbs 02/06/2017 Blood Pressure 1: 130/74 Code: 8480-6 BMI: 30.4 Code: 81849-4 Heart Rate 1: 71 bpm Height: 5'8" SpO2: 98% Weight: 200 lbs 11/06/2016 Blood Pressure 1: 140/74 Code: 8480-6 BMI: 29.5 Code: 33303-9 Heart Rate 1: 76 bpm Height: 5'8" SpO2: 96% Weight: 194 lbs 09/27/2016 Blood Pressure 1: 138/78 Code: 8480-6 BMI: 29.6 Code: 53517-1 Heart Rate 1: 68 bpm Height: 5'8" SpO2: 97% Weight: 195 lbs 03/21/2016 Blood Pressure 1: 148/82 Code: 8480-6 BMI: 30.6 Code: 39225-8 Heart Rate 1: 67 bpm Height: 5'8" SpO2: 98% Weight: 201 lbs 02/01/2016 Blood Pressure 1: 128/86 Code: 8480-6 BMI: 30.3 Code: 74856-6 Heart Rate 1: 84 bpm Height: 5'8" SpO2: 96% Weight: 199 lbs 11/23/2015 Blood Pressure 1: 132/76 Code: 8480-6 BMI: 30.4 Code: 79650-3 Heart Rate 1: 81 bpm Height: 5'8" SpO2: 98% Weight: 200 lbs 10/14/2015 Blood Pressure 1: 120/80 Code: 8480-6 BMI: 30.4 Code: 80256-0 Heart Rate 1: 87 bpm Height: 5'8" SpO2: 97% Weight: 200 lbs 07/20/2015 Blood Pressure 1: 132/84 Code: 8480-6 BMI: 31.0 Code: 53694-6 Heart Rate 1: 78 bpm Height: 5'8" SpO2: 96% Weight: 204 lbs 07/06/2015 Blood Pressure 1: 130/78 Code: 8480-6 BMI: 31.0 Code: 53568-2 Heart Rate 1: 80 bpm Height: 5'8" SpO2: 98% Weight: 204 lbs 03/29/2015 Blood Pressure 1: 132/82 Code: 8480-6 BMI: 29.6 Code: 80148-0 Heart Rate 1: 76 bpm Height: 5'8" SpO2: 96% Weight: 195 lbs 03/08/2015 Blood Pressure 1: 126/84 Code: 8480-6 BMI: 30.2 Code: 76941-8 Heart Rate 1: 101 bpm Height: 5'8" SpO2: 98% Weight: 198 lbs 8 oz 02/02/2015 Blood Pressure 1: 132/86 Code: 8480-6 Heart Rate 1: 86 bpm SpO2: 98% Temperature: 36.6 (C ) / 97.8 (F) Weight: 198 lbs 09/22/2014 Blood Pressure 1: 128/80 Code: 8480-6 BMI: 29.3 Code: 56952-9 Heart Rate 1: 85 bpm Height: 5'8" [...] Encounters Encounter Performer Loca tion Codes Date ( [id number] EST. P ATIENT, LEVEL IV Diagnosis: Hypo-osmolality and hyponatremia[ICD10: E87.1] Diagnosis: Muscle weakness (generalized)[ICD10: M62.81] Diagnosis: Other emphysema[ICD10: J43.8] Lucrecia Parsons MD, [facility] CPT- 4: [id number] 11/22/2018 [id number] EST. PATIENT, LEVEL V Diagnosis: Muscle weakness (generalized)[ICD10: M62.81] Diagnosis: Rash and other nonspecific skin eruption[ICD10: R21] Diagnosis: Other hemorrhoids[ICD10: K64.8] Diagnosis: Hypo-osmolality and hyponatremia[ICD10: E87.1] Diagnosis: Other emphysema[ICD10: J43.8] Diagnosis: Paroxysmal atrial fibrillation[ICD10: I48.0] Diagnosis: Encounter for follow-up examination after completed treatment for conditions other than malignant neoplasm[ICD10: Z09] Diagnosis: Essential (primary) hypertension[ICD10: I10] Lucrecia Parsons MD, [facility] CPT-4: 73035 11/01/2018 [id number] EST. PATIENT, LEVEL IV Diagnosis: Other acute sinusitis[ICD10: J01.80] Diagnosis: Other allergic rhinitis[ICD10: J30.89] Diagnosis: Other mucopurulent conjunctivitis, right eye[ICD10: H10.021] Sandra Parsons MD, [facility] CPT-4: 52944 07/08/2018 87095 EST. PATIENT, LEVEL III Diagnosis: Cellulitis of right upper limb[ICD10: L03.113] Sandra Parsons MD, [facility] CPT-4: 33232 06/04/2018 ([id number]) 11523 EST. P ATIENT, LEVEL IV Diagnosis: Essential (primary) hypertension[ICD10: I10] Diagnosis: Chronic atrial fibrillation[ICD10: I48.2] Diagnosis: Mixed hyperlipidemia[ICD10: E78.2] Steffany Parsons MD, [facility] CPT- 4: 09393 04/23/2018 34077 EST. PATIENT, LEVEL IV Diagnosis: Other acute sinusitis[ICD10: J01.80] Diagnosis: Other allergic rhinitis[ICD10: J30.89] Sandra Parsons MD, [facility] CPT-4: 23532 02/28/2018 52773 EST. PATIENT, LEVEL IV Diagnosis: Other acute sinusitis[ICD10: J01.80] Diagnosis: Other allergic rhinitis[ICD10: J30.89] Sandra Parsons MD, [facility] CPT-4: 76940 02/19/2018 93018 EST. PATIENT, LEVEL III Diagnosis: Acute laryngopharyngitis[ICD10: J06.0] Diagnosis: Other allergic rhinitis[ICD10: J30.89] Sandra Parsons MD, [facility] CPT-4: 71011 11/09/2017 ([id number]) 62171 EST. P ATIENT, LEVEL IV Diagnosis: Essential (primary) hypertension[ICD10: I10] Diagnosis: Chronic atrial fibrillation[ICD10: I48.2] Steffany Parsons MD, [facility] CPT-4: 78127 10/22/2017 ([id number]) 40228 EST. P ATIENT, LEVEL IV Diagnosis: Essential (primary) hypertension[ICD10: I10] Diagnosis: Chronic atrial fibrillation[ICD10: I48.2] Diagnosis: Cough[ICD10: R05] Steffany Parsons MD, [facility] CPT-4: 08684 07/23/2017 ([id number]) 50462 EST. P ATIENT, LEVEL III Diagnosis: Cough[ICD10: R05] Diagnosis: Other allergic rhinitis[ICD10: J30.89] Diagnosis: Chronic obstructive pulmonary disease with (acute) exacerbation[ICD10: J44.1] Lucrecia Parsons MD, [facility] CPT-4: 89900 07/09/2017 ([id number]) 01609 EST. P ATIENT, LEVEL III Diagnosis: Cough[ICD10: R05] Diagnosis: Other allergic rhinitis[ICD10: J30.89] Diagnosis: Chronic obstructive pulmonary disease with (acute) exacerbation[ICD10: J44.1] Lucrecia Parsons MD, [facility] CPT-4: 59223 06/29/2017 ([id number]) 74539 EST. P ATIENT, LEVEL III Diagnosis: Essential (primary) hypertension[ICD10: I10] Diagnosis: Cough[ICD10: R05] Steffany Parsons MD, [facility] CPT-4: 20848 04/23/2017 ([id number]) 80786 EST. P ATIENT, LEVEL IV Diagnosis: Hemoptysis[ICD10: R04.2] Diagnosis: Essential (primary) hypertension[ICD10: I10] Diagnosis: Chronic obstructive pulmonary disease with acute lower respiratory infection[ICD10: J44.0] Steffany Parsons MD, [facility] CPT-4: 65314 04/10/2017 30092 EST. PATIENT, LEVEL III Diagnosis: Acute laryngopharyngitis[ICD10: J06.0] Diagnosis: Other allergic rhinitis[ICD10: J30.89] Sandra Parsons MD, [facility] CPT-4: 04676 03/29/2017 ([id number]) 83213 EST. P ATIENT, LEVEL III Diagnosis: Pneumonia due to Mycoplasma pneumoniae[ICD10: J15.7] Diagnosis: Cough[ICD10: R05] Diagnosis: Other chest pain[ICD10: R07.89] Steffany Parsons MD, [facility] CPT-4: 28939 02/06/2017 66167 EST. PATIENT, LEVEL IV Diagnosis: Cough[ICD10: R05] Diagnosis: Shortness of breath[ICD10: R06.02] Diagnosis: Gastro-esophageal reflux disease without esophagitis[ICD10: K21.9] Sandra Parsons MD, [facility] CPT-4: 65525 11/06/2016 26353 EST. PATIENT, LEVEL IV Diagnosis: Other allergic rhinitis[ICD10: J30.89] Diagnosis: Acute bronchitis due to other specified organisms[ICD10: J20.8] Sandra Parsons MD, [facility] CPT-4: 68308 09/27/2016 ([id number]) 80603 EST. P ATIENT, LEVEL IV Diagnosis: Essential (primary) hypertension[ICD10: I10] Diagnosis: Chronic atrial fibrillation[ICD10: I48.2] Diagnosis: Encounter for therapeutic drug level monitoring[ICD10: Z51.81] Steffany Parsons MD, [facility] CPT-4: 49993 03/21/2016 ([id number]) 50072 EST. 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 P ATIENT, LEVEL III Diagnosis: Allergic rhinitis due to pollen[ICD10: J30.1] Diagnosis: Actinic keratosis[ICD10: L57.0] Lucrecia Parsons MD, [facility] CPT- 4: 83644 10/14/2015 ([id number]) 47244 EST. P ATIENT, LEVEL IV Diagnosis: Essential (primary) hypertension[ICD10: I10] Diagnosis: Chronic atrial fibrillation[ICD10: I48.2] Steffany Parsons MD, [facility] CPT-4: 05701 07/06/2015 86014 EST. PATIENT, LEVEL III Diagnosis: Essential (primary) hypertension[ICD10: I10] Diagnosis: Chronic atrial fibrillation[ICD10: I48.2] Diagnosis: Shortness of breath[ICD10: R06.02] Diagnosis: Melena[ICD10: K92.1] Sandra Parsons MD, [facility] CPT-4: 46829 03/29/2015 ([id number]) 73103 EST. P ATIENT, LEVEL IV Diagnosis: Essential (primary) hypertension[ICD10: I10] Diagnosis: Chronic atrial fibrillation[ICD10: I48.2] Diagnosis: Cough[ICD10: R05] Steffany Parsons MD, [facility] CPT-4: 54741 03/08/2015 ([id number]) 66798 EST. P ATIENT, LEVEL III Diagnosis: Other seasonal allergic rhinitis[ICD10: J30.2] Diagnosis: Other lesions of oral mucosa[ICD10: K13.79] [facility] CPT-4: 41663 02/02/2015 ([id number]) OFFICE VISI T [facility] - LEVEL 4 Diagnosis: ESSENTIAL HYPERTENSION[ICD9: 401.9] Diagnosis: HYPERLIPIDEMIA[ICD9: 272.4] Diagnosis: ACTINIC KERATOSIS[ICD9: 702.0] Steffany Parsons MD, [facility] CPT-4: 83860 09/22/2014 Plan of Care Planned Activity Notes [...] Dr Mijares 11/22/2018 Appointment: Lucrecia Yeager WPtel: [address] [place], [place] [phone] (30 min) [facility] 11/22/2018 Patient Education: Patient Medication Summary Completed 11/22/2018 Visit Plan: Hospital follow up -pul monary hemorrhage with pneumonia-continue with oxygen at 2 liters -keep appt with Dr Mijares as scheduled -continue breathing treatments as ordered Generalized weakness -due to prolonged hospitalization -he is doing PT/OT at [facility] -he did stand for 10 seconds twice [...] Summary Completed 11/01/2018 Appointment: Steffany Parsons WPtel: [address] [place], [place] [phone] (15 min) Moderate 10/22/2018 Appointment: Steffany Parsons WPtel: [address] [place], [place] [phone] (15 min) Moderate 09/30/2018 Appointment: Steffany Parsons WPtel: [address] [place], [place] [phone] (15 min) Moderate 09/19/2018 Visit Plan: Sinusitis [...] times daily. 07/08/2018 Appointment: Sandra Tim WPtel: [address] [place], [place] [phone] (15 min) Moderate 07/08/2018 Patient Education: Patient [...] discharge. 06/04/2018 Appointment: [facility]el[phone] (30 min) Complex 06/04/2018 Patient Education: Patient [...] time. 04/23/2018 Appointment: [facility] Pars[phone] (15 min) Moderate 04/23/2018 Patient Education: Patient [...] allergy spray. 02/28/2018 Appointment: Sandra Tim WPtel: [address] [place], [place] [phone] (15 min) Moderate 02/28/2018 Patient Education: Patient [...] allergy spray. 02/19/2018 Appointment: Sandra Tim WPtel: [address] [place], [place] [phone] (15 min) Moderate 02/19/2018 Patient Education: Patient [...] allergy spray. 11/09/2017 Appointment: Sandra Tim WPtel: [phone] (15 min) Moderate 11/09/2017 Patient Education: Patient [...] uncontrolled. 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 07/09/2017 Appointment: Lucrecia Yeager WPtel: [phone] (30 min) Complex 07/09/2017 Patient Education: Patient [...] acute changes. 06/29/2017 Appointment: Lucrecia Yeager WPtel: [phone] [place] (15 min) Moderate 06/29/2017 Patient Education: Patient Medication Summary Completed 06/29/2017 Appointment: Steffany Parsons WPtel: [facility] (15 min) Moderate 04/30/2017 Visit Plan: Hypertension [...] treatments. 04/23/2017 Appointment: Steffany Parsons WPtel: [phone] [facility] (15 min) Moderate 04/23/2017 Patient Education: Patient Medication Summary Completed 04/23/2017 Visit Plan: Hemoptysis and COPD exa cerbation - continue with antibiotics, rx for antifungal tablet and suspension. chest xray ordered, monitor symptoms. Pt to stop aspirin x 1 week, continue with eliquis. call if s ymptoms are not improving. rx for phenergan with codeine. 04/10/2017 Appointment: Steffany Parsons WPtel: [facility] (15 min) Moderate 04/10/2017 Patient Education: Patient [...] spray. 03/29/2017 Appointment: Sandra Tim WPtel: [phone] [facility] (15 min) Moderate 03/29/2017 Patient Education: Patient Medication Summary Completed 03/29/2017 Visit Plan: Pneumonia - Pt has been diagnosed with pneumonia by physical exam. A chest xray has been ordered as have antibiotics. The pt is aware of the diagnosis and the need for acute treatment of this illness. Cough - rx for promethazine/codeine syrup for cough. 02/06/2017 Appointment: Steffany Parsons WPtel: [phone] [facility] (15 min) Moderate 02/06/2017 Patient Education: [...] improving. 11/06/2016 Appointment: Sandra Tim WPtel: [phone] [facility] (15 min) Moderate 11/06/2016 Patient Education: [...] worsen. 09/27/2016 Appointment: Sandra Tim WPtel: [phone] [facility] (30 min) Complex 09/27/2016 Patient Education: Patient [...] uncontrolled. 03/21/2016 Appointment: Steffany Parsons WPtel: [phone] [facility] (15 min) Moderate 03/21/2016 Patient Education: Patient Medication Summary Completed 03/21/2016 Patient Education: Obesity Completed 03/21/2016 Visit Plan: Diarrhea-recent abx use -check stool for cdiff- increase probiotic to twice daily-bland diet advance as tolerated-call if symptoms do not resolve or if any worse. Patient verbalized understanding of pl an. 02/01/2016 Appointment: Lucrecia Yeager WPtel: [phone] [phone] [place] (15 min) Moderate 02/01/2016 Patient Education: Patient Medication Summary Completed 02/01/2016 Patient Education: Obesity Completed 02/01/2016 Referral: Alexi Honeycutt [id number] Info faxed Completed 11/27/2015 Visit Plan: Hypertension [...] Completed 11/23/2015 Appointment: Steffany Parsons WPtel: [phone] [facility] (15 min) Moderate 11/15/2015 Visit Plan: [...] not heal 10/14/2015 Appointment: Lucrecia Yeager WPtel: [address] [place] [phone] (15 min) Moderate 10/14/2015 Patient Education: Patient [...] acute concerns. 07/20/2015 Appointment: Lucrecia Yeager WPtel: [address] [place] [phone] (30 min) Complex 07/20/2015 Patient Education: Patient [...] WPtel: [facility] (15 min) Moderate 07/06/2015 Patient Education: Patient [...] - pt has an upcoming appointment with credit support specialist to possibly have an ablation [...] Education: Hypertension Completed 03/08/2015 [facility] Referral Completed 02/13/2015 Visit Plan: Allergies [...] 02/02/2015 Care Plan: Referral Order SNOMED-CT : [id number] Ordered 02/02/2015 Visit Plan: Hypertension - well [...] not improving. 09/22/2014 Appointment: Steffany Parsons WPtel: [address] [place], [place] [phone] [place] ([place]) New Patient 09/22/2014 Patient Education: Patient Medication Summary Completed 09/22/2014 Patient Education: Hypertension Completed 09/22/2014 Referral: Alexi Honeycutt [facility] Referral Initiated Instructions Comment . Pneumonia - Pt has been diagnosed with pneumonia by physical exam. A chest xray has been ordered as have antibiotics. The pt is aware of the diagnosis and the need for acute treatment of this illness. Cough - rx for promethazine/codeine syrup for cough. calmoseptine cream t o buttock restart hemorrhoid cream mupirocin to left index and pinky finger . Hospital follow up -pulmonary hemorrha ge with pneumonia-continue with oxygen at 2 liters -keep appt with Dr Mijares as scheduled -continue breathing treatments as ordered Generalized weakness -due to prolonged hospitalization -he is doing PT/OT at [facility] -he did stand for 10 seconds twice [...] is stable, monitor for acute changes. . Low sodium -repeat labs today-continue gatorade Weakness -post prolonged hospitalization -patient is doing well -transferring with stand by assist -passed home safety evaluation -plans to d/c to home on 12/04/18 Emphysema- patient is off oxygen and breathing treatments decreased to three times daily -continues to f/u with Dr Mijares CHECK STOOL FOR CDI FF INCREASE PROBIOTIC [...] has a follow up appointment with Dr. Avlia and Dr. Veloz. Hypertension - well controlled [...] - pt has an upcoming appointment with credit support specialist to possibly have an ablation [...] monitor for acute changes. . Hemoptysis and WELDER GAS D exacerbation - continue with antibiotics, rx for antifungal tablet and suspension. chest xray ordered, monitor symptoms. Pt to stop aspirin x 1 week, continue with eliquis. call if symptoms are not improving. rx for phenergan with codeine. Steroid shot today stop the keflex and start the doxycycline take a probiotic ([employer], [employer], or generic) twice a day while on [...] medication into affected eye four times daily. use flonase before y ou go outside [...] - (ocean nasal spray) . Hypertension - wel l controlled - [...] if their heart rate is becoming uncontrolled. Kenalog injection to day in the office-if [...] for health care surrogate. . Cough, shortness o f breath - [...]
--- OUTSIDE RECORDS SUMMARY | 2019-07-22 16:08 | XMS REPORT | CCD ---
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 Name Role Phone PP Unavailable CCM Unavailable Summary Purpose Interface Exchange Insurance Providers Payer name Policy type / Coverage type Covered alliance party ID Effective Begin Date Effective End Date [facility] Commercial Insurance [id number] Unknown Unknown Family history Father Diagnosis Age At Onset Prostate Cancer Unknown Runs in the family Diagnosis Age At Onset Hypertension Unknown Mother Diagnosis Age At Onset No Family Disease Entered N/A Social History Social History Element Codes Description Effective Dates Marital status Unknown M arried Mary 02/06/2017 Number of children Unknown 5 09/22/[address]: 7127205 Quit over 10 years ago 09/22/[address]: 224377596 Never drinks alcohol 09/22/2014 Allergies, Adverse Reactions, [...] Fill Instructions aspirin 81 mg tablet RxNorm: 909538 1 Tablet(s) PO every other day 11/22/2018 No Stop Date Active metoprolol tartrate 25 mg tablet RxNorm: 753134 1 Tablet(s) PO BID 11/01/2018 01/24/2020 Active ipratropium-albutero l 0.5 mg-3 mg(2.5 mg base)/3 mL nebulization soln RxNorm: 8134153 1 INH Q4H and q 2 hours prn 11/02/19 No Stop Date Active melatonin 10 mg disi ntegrating tablet RxNorm: 1301368 1 Tablet(s) PO daily 11/01/2018 No Stop Date Active Flonase Allergy Reli ef 50 mcg/actuation nasal spray,suspension RxNorm: 9321240 2 [place] NASAL daily as needed 2018 No Stop Date Active Lasix 20 mg tablet RxNorm: 728347 Tablet(s) PO Q72H 11/01/2018 No Stop Date Active Lialda 1.2 gram tabl et,delayed release RxNorm: 750873 2 Tablet(s) PO QHS -P rescried by Dr. Seymour 11/01/2018 No Stop Date Active diphenoxylate-atropi ne 2.5 mg-0.025 mg tablet RxNorm: 2186099 1/2 Tablet(s) PO Q12 H and q 1 q 6 hours prn 11/01/2018 No Stop Date Active Imodium A-D 2 mg tablet RxNorm: 956237 1/2 Tablet(s) PO BID 11/01/2018 No Stop Date Active losartan 50 mg tablet RxNorm: 878529 1 Tablet(s) PO QPM at supper 11/01/2018 No Stop Date Active Coumadin 3 mg tablet RxNorm: 622135 1 Tablet(s) PO TIW M W F 10/30/2018 11/28/2018 Active Klor-Con M20 mEq tab let,extended release RxNorm: 8959403 TAKE 1 TABLET EVERY MORNING 10/01/2018 10/31/2018 Inactive doxycycline hyclate 100 mg capsule RxNorm: 7163777 1 Capsule(s) PO BID 07/31/2018 08/09/2018 In active doxycycline hyclate 100 mg capsule RxNorm: 6613337 1 Capsule(s) PO BID 07/08/2018 07/17/2018 In active Kenalog 40 mg/mL nori pension for injection RxNorm: 5527794 1 Milliliter(s) Inj 07/08/2018 07/08/2018 In active ciprofloxacin 0.3 % eye drops RxNorm: 809155 2 Drop(s) ophthalmic (eye) Q2H while awake x 2 days then Q4H x 5 days 07/08/2018 10/31/2018 Inactive Keflex 500 mg capsule RxNorm: 404840 1 Capsule(s) PO TID 07/02/2018 07/08/2018 Inactive dapsone 100 mg tablet RxNorm: 188182 1 Tablet(s) PO daily 06/04/2018 06/10/2018 Inactive doxycycline hyclate 100 mg capsule RxNorm: 6608814 1 Capsule(s) PO BID 06/04/2018 06/13/2018 In active Lasix 40 mg tablet RxNorm: 766662 TAKE 1 TABLET DAILY 04/22/2018 10/31/2018 Inactive prednisone 20 mg tablet RxNorm: 432930 2 Tablet(s) PO daily 02/28/2018 03/04/2018 Inactive START TOMORROW Keflex 500 mg capsule RxNorm: 291437 1 Capsule(s) PO TID 02/28/2018 03/09/2018 Inactive ceftriaxone 500 mg s olution for injection RxNorm: 1248072 Inj 02/28/2018 02/28/2018 Inactive Kenalog 40 mg/mL nori pension for injection RxNorm: 7363062 Milliliter(s) Inj 02/26/2018 02/26/2018 In active Keflex 500 mg capsule RxNorm: 591797 1 Capsule(s) PO TID 02/19/2018 02/25/2018 Inactive Klor-Con M20 mEq tab let,extended release RxNorm: 2081106 TAKE 1 TABLET EVERY MORNING 12/04/2017 09/30/2018 Inactive prednisone 20 mg tablet RxNorm: 423287 2 Tablet(s) PO daily 11/16/2017 11/20/2017 Inactive START TOMORROW Zithromax Z-Mau 250 mg tablet RxNorm: 337490 1 Tablet(s) PO daily 11/16/2017 11/20/2017 Inactive Zithromax Z-Mau 250 mg tablet RxNorm: 660328 1 Tablet(s) PO daily 11/16/2017 11/15/2017 Inactive Keflex 500 mg capsule RxNorm: 029318 1 Capsule(s) PO TID 11/09/2017 11/15/2017 Inactive Zithromax 250 mg tablet RxNorm: 371312 [address] day and 1 tab po on day 2-5 Tablet(s) PO 08/30/2017 09/03/2017 Inactive zpack x 1 doxycycline hyclate 100 mg tablet RxNorm: 669482 1 Tablet(s) PO BID 07/09/2017 07/15/2017 Inactive prednisone 20 mg tablet RxNorm: 369357 2 Tablet(s) PO daily 06/29/2017 07/01/2017 Inactive START TOMORROW Kenalog 40 mg/mL nori pension for injection RxNorm: 2979777 Milliliter(s) Inj 06/29/2017 06/29/2017 In active Lasix 40 mg tablet RxNorm: 775479 TAKE 1 TABLET DAILY 04/24/2017 04/21/2018 Inactive Diflucan 150 mg tablet RxNorm: 741824 1 Tablet(s) PO daily 04/10/2017 04/16/2017 Inactive Bactrim DS 800 mg-16 0 mg tablet RxNorm: 206727 1 Tablet(s) PO BID 04/10/2017 04/16/2017 Inactive nystatin 100,000 uni t/mL oral suspension RxNorm: 081401 5 Milliliter(s) PO QI D 04/10/2017 04/19/2017 In active cefdinir 300 mg capsule RxNorm: 252132 1 Capsule(s) PO BID 03/28/2017 04/06/2017 Inactive cefdinir 300 mg capsule RxNorm: 931335 1 Capsule(s) PO BID 02/06/2017 02/15/2017 Inactive ceftriaxone 500 mg s olution for injection RxNorm: 8476471 Inj 02/06/2017 02/06/2017 Inactive omeprazole 20 mg tab let,delayed release RxNorm: 187103 1 Tablet(s) PO daily 11/06/2016 12/05/2016 In active Phenergan with Codei ne Syrup RxNorm: 5 Milliliter(s) PO QID as n eeded 10/30/2016 10/31/2018 In active Tessalon Perles 100 mg capsule RxNorm: 400874 1-2 Capsule(s) PO TID as needed cough 10/30/2016 11/08/2016 In active Klor-Con M20 mEq tab let,extended release RxNorm: 4106634 TAKE 1 TABLET EVERY MORNING 10/26/2016 12/03/2017 Inactive ceftriaxone 500 mg s olution for injection RxNorm: 5653382 1 Milliliter(s) Inj 09/27/2016 09/27/2016 In active Phenergan with Codei ne Syrup RxNorm: 5 Milliliter(s) PO QID as n eeded 09/27/2016 10/29/2016 In active Tessalon Perles 100 mg capsule RxNorm: 955402 1-2 Capsule(s) PO TID as needed cough 09/27/2016 09/29/2016 In active Kenalog 40 mg/mL nori pension for injection RxNorm: 3392188 1 Milliliter(s) Inj 09/27/2016 09/27/2016 In active Flagyl 500 mg tablet RxNorm: 401059 1 Tablet(s) PO TID 2016 08/05/2016 Inactive Lasix 40 mg tablet RxNorm: 010219 TAKE 1 TABLET DAILY 07/26/2016 04/23/2017 Inactive Zithromax 250 mg tablet RxNorm: 264819 [address] day and 1 tab po on day 2-5 Tablet(s) PO 03/28/2016 03/27/2016 Inactive zpack x 1 Zithromax 250 mg tablet RxNorm: 587196 [address] day and 1 tab po on day 2-5 Tablet(s) PO 03/28/2016 04/01/2016 Inactive zpack x 1 Flagyl 500 mg tablet RxNorm: 069365 1 Tablet(s) PO TID 02/07/2016 02/06/2016 Inactive Flagyl 500 mg tablet RxNorm: 252207 1 Tablet(s) PO TID 02/07/2016 02/16/2016 Inactive Zyrtec-D 5 mg-120 mg tablet,extended release RxNorm: 9280105 1 Tablet(s) PO daily as needed allergies 11/23/2015 10/31/2018 Inactive Imodium A-D 2 mg tablet RxNorm: 478905 1/2 Tablet(s) PO daily 11/23/2015 10/31/2018 Inactive Mucinex 600 mg table t, extended release RxNorm: 867740 1 Tablet(s) PO BID as needed 11/23/2015 01/21/2016 In active Lasix 40 mg tablet RxNorm: 691932 TAKE 1 TABLET DAILY 11/01/2015 07/25/2016 Inactive Klor-Con M20 mEq tab let,extended release RxNorm: 6680407 TAKE 1 TABLET EVERY MORNING 11/01/2015 10/25/2016 Inactive Flonase Allergy Reli ef 50 mcg/actuation nasal spray,suspension RxNorm: 0305069 2 [place] NASAL daily 07/20/2015 10/31/2018 Inactive Kenalog 40 mg/mL nori pension for injection RxNorm: 9611403 Milliliter(s) Inj 02/02/2015 02/02/2015 In active Plavix 75 mg tablet RxNorm: 440360 1 Tablet(s) PO daily 10/05/2014 03/07/2015 Inactive Klor-Con M20 mEq tab let,extended release RxNorm: 403277 1 Tablet(s) PO QAM 10/05/2014 10/31/2015 In active Lasix 40 mg tablet RxNorm: 075546 1 Tablet(s) PO daily 10/05/2014 10/31/2015 Inactive Crestor 5 mg tablet RxNorm: 377599 1/2 Tablet(s) PO daily 10/05/2014 10/31/2018 Inactive Efudex 5 % topical c ream RxNorm: 144455 1 Application TOP BID x 2 weeks, allow healing x 1 -2 weeks, then reuse 10/05/2014 07/05/2015 Inactive metoprolol tartrate 100 mg tablet RxNorm: 132520 1 Tablet(s) PO BID 10/05/2014 12/28/2015 Inactive Pradaxa 150 mg capsule RxNorm: 7029718 1 Capsule(s) PO BID 10/05/2014 04/09/2017 Inactive amlodipine 10 mg tablet RxNorm: 332252 1/2 Tablet(s) PO QAM 10/05/2014 07/05/2015 Inactive Efudex 5 % topical c ream RxNorm: 096457 1 Application TOP BID x 2 weeks, allow healing x 1 -2 weeks, then reuse 09/22/2014 10/04/2014 Inactive Klor-Con M20 mEq tab let,extended release RxNorm: 667759 1 Tablet(s) PO QAM 09/22/2014 10/04/2014 In active Lasix 40 mg tablet RxNorm: 549767 1 Tablet(s) PO daily 09/22/2014 10/04/2014 Inactive hydralazine 25 mg ta blet RxNorm: 977786 1 Tablet(s) PO Q6 as needed No Start Date Active Lactobacillus acidop hilus 1 billion cell tablet RxNorm: 321568 1 Tablet(s) PO BID No Start Date Active spironolactone 25 mg tablet RxNorm: 948132 1 Tablet(s) PO daily No Start Date Active duloxetine 20 mg cap marck,delayed release RxNorm: 651390 1 Capsule(s) PO BID No Start Date Active Centrum Silver oral RxNorm: 48113 oral No Start Date Active diltiazem CD 120 mg capsule,extended release 24 hr RxNorm: 722509 1 Capsule(s) PO daily No Start Date Active diclofenac sodium 75 mg tablet,delayed release RxNorm: 709985 1 Tablet(s) PO TID as needed No Start Date Active Coumadin 2 mg tablet RxNorm: 913232 1 Tablet(s) PO 4 times a week T Sun No Start Date Active Emla topical RxNorm: 03761 topical No Start Date Active Colace 100 mg capsule RxNorm: 9401138 1 Capsule(s) PO BID No Start Date Active magnesium 250 mg tablet RxNorm: 1 Tablet(s) PO daily No Start Date Active loratadine 10 mg tablet RxNorm: 497859 1 Tablet(s) PO daily No Start Date Active Vitamin D3 5,000 uni t tablet RxNorm: 660400 1 Tablet(s) PO BID No Start Date Active pantoprazole 40 mg t ablet,delayed release RxNorm: 137291 1 Tablet(s) PO daily No Start Date Active Glucosamine Chondroi t Complx Advan oral RxNorm: oral No Start D ate Active Cartia XT 180 mg cap marck,extended release RxNorm: 121543 2 Capsule(s) PO daily No Start Date 10/31/2018 Inactive cetirizine 10 mg tablet RxNorm: 7638210 1 Tablet(s) PO daily at lunch No Start Date 10/31/2018 Inactive Canasa 1,000 mg rect al suppository RxNorm: 359882 [address]L QHS Dr seymour No Start Date 10/31/2018 Inactive Lialda 1.2 gram tabl et,delayed release RxNorm: 450303 1 Tablet(s) PO QHS -P rescried by Dr. Seymour No Start Date 10/31/2018 Inactive melatonin 1 mg tablet RxNorm: 514971 1 Tablet(s) PO daily No Start Date 10/31/2018 Inactive Plavix 75 mg tablet RxNorm: 582298 1 Tablet(s) PO daily No Start Date 10/04/2014 Inactive Klor-Con M20 mEq tab let,extended release RxNorm: 931330 1 Tablet(s) PO QAM No Start Date 09/21/2014 Inactive diphenoxylate-atropi ne 2.5 mg-0.025 mg tablet RxNorm: 9474871 1/2 Tablet(s) PO Q12 H No Start Date 10/31/2018 Inactive Eliquis 5 mg tablet RxNorm: 7276596 1 Tablet(s) PO BID Dr Avila No Start Date 10/29/2018 Inactive aspirin 81 mg tablet RxNorm: 158977 1 Tablet(s) PO daily No Start Date 11/21/2018 Inactive magnesium 200 mg (as magnesium oxide) tablet RxNorm: 552973 1 Tablet(s) PO daily No Start Date 11/01/2018 Inactive Imodium oral RxNorm: oral No Start Date 11/21 Inactive Lasix 40 mg tablet RxNorm: 156030 1 Tablet(s) PO daily No Start Date 09/21/2014 Inactive amlodipine 10 mg tablet RxNorm: 198694 1/2 Tablet(s) PO QAM No Start Date 10/04/2014 Inactive Crestor 5 mg tablet RxNorm: 002688 1/2 Tablet(s) PO daily No Start Date 10/04/2014 Inactive Flonase Allergy Reli ef 50 mcg/actuation nasal spray,suspension RxNorm: 1 [place] NASAL daily No Start Date 07/19/2015 Inactive aspirin 81 mg capsul e,delayed release RxNorm: 621014 1 Capsule(s) PO daily No Start Date 10/31/2018 Inactive losartan 25 mg tablet RxNorm: 437236 1 Tablet(s) PO QPM at supper No Start Date 10/31/2018 Inactive metoprolol tartrate 100 mg tablet RxNorm: 603249 1 Tablet(s) PO BID No Start Date 10/04/2014 Inactive ipratropium-albutero l 0.5 mg-3 mg(2.5 mg base)/3 mL nebulization soln RxNorm: 2839392 1 INH Q4H No Start Date 10/31/2018 Inactive digoxin 250 mcg tablet RxNorm: 314316 1 Tablet(s) PO daily No Start Date 10/31/2018 Inactive Probiotic 4X oral RxNorm: 3196245 oral No Start Date 07/06/2015 Inactive Probiotic oral RxNorm: 6205 oral No Start Date 10/31/2018 Inactive Pradaxa 150 mg capsule RxNorm: 0844390 1 Capsule(s) PO BID No Start Date 10/04/2014 Inactive Medication Administered Medication Codes Instruc tions Start Date Status Kenalog 40 mg/mL suspension for injection RxNorm: 1355529 1Milliliter 07/08/2018 N o longer Active ceftriaxone 500 mg solution for injection RxNorm: 8650363 02/28/2018 No longer A ctive Kenalog 40 mg/mL suspension for injection RxNorm: 0779815 Milliliter 02/26/2018 No longer Active Kenalog 40 mg/mL suspension for injection RxNorm: 3580575 Milliliter 06/29/2017 No longer Active ceftriaxone 500 mg solution for injection RxNorm: 7784484 02/06/2017 No longer A ctive Kenalog 40 mg/mL suspension for injection RxNorm: 0750820 1Milliliter 09/27/2016 N o longer Active ceftriaxone 500 mg solution for injection RxNorm: 5402143 1Milliliter 09/27/2016 N o longer Active Kenalog 40 mg/mL suspension for injection RxNorm: 4702596 Milliliter 02/02/2015 No longer Active Immunizations Vaccine [...] 31.4 pg 10/23/2017 Cbc With Differential Ord2 [place]% 8.5 % 10/23/2017 Cbc With Differential Ord2 [...] 2.73 K/ul 10/23/2017 Cbc With Differential Ord2 [place] ABS# 0.9 K/ul 10/23/2017 Cbc With Differential Ord2 Eos ABS# 0.6 K/ul 10/23/2017 Cbc With Differential Ord2 Baso ABS# 0.0 K/ul 10/23/2017 Digoxin Ord9 DIGOXIN 1.0 NG/ML 10/23/2017 Lipid Ord30 CHOL 108 mg/dL 10/23/2017 Lipid Ord30 HDL 39.0 mg/dl 10/23/2017 Lipid Ord30 TRIG 175 mg/dL 10/23/2017 Lipid Ord30 LDL 34 mg/dL 10/23/2017 Lipid Ord30 C/HDL 2.8 Ratio 10/23/2017 Comp Metabolic Dfm226 NA 140 mEq/L 10/23/2017 Comp Metabolic Eyi556 K 4.1 mEq/L 10/23/2017 Comp Metabolic Cjs938 CL 102 mEq/L 10/23/2017 Comp Metabolic Ckr741 CO2 30.0 mEq/L 10/23/2017 Comp Metabolic Pjt770 AN ION GAP 12 10/23/2017 Comp Metabolic Oel615 GL UCOSE 124 mg/dL 10/23/2017 Comp Metabolic Pih633 Cr eat 1.1 mg/dL 10/23/2017 Comp Metabolic Hjo677 eG FR 71 ml/min/1.73m2 10/23 Comp Metabolic Gvl017 BUN 11 mg/dL 10/23/2017 Comp Metabolic Zwm283 B/ C Ratio 10.2 Ratio 10/23/2017 Comp Metabolic Zkg329 CA LCIUM 9.3 mg/dL 10/23/2017 Comp Metabolic Szx812 AL K PHOS 72 U/L 10/23/2017 Comp Metabolic Hfk115 T(SGOT) 21 U/L 10/23/2017 Comp Metabolic Rsj498 AL T(SGPT) 17 U/L 10/23/2017 Comp Metabolic Ygd226 BI LI T 0.8 mg/dL 10/23/2017 Comp Metabolic Kib029 AL BUMIN 4.3 g/dL 10/23/2017 Comp Metabolic Zcw726 TP RO 7.4 g/dL 10/23/2017 Comp Metabolic Eer918 GL OB 3.1 g/dL 10/23/2017 Comp Metabolic Aze076 A/ G Ratio 1.4 Ratio 10/23/2017 Comp Metabolic Gdl995 Os mo 280 mOsmo 10/23/2017 Tsh Ord6 TSH (3rd IS) 3.37 uIU/mL 10/23/2017 Test(s) Not Perfromed RIF9006 Test(s) Not Performed Test(s) Not Performed. See Below: 10/23/2017 Test(s) Not Perfromed [id number] TEST NAME PSA 10/23/2017 Test(s) Not Perfromed [id number] Rejection Reason PSA Performed yearly at Dr. Stone's Office 10/23/2017 Test(s) Not Perfromed [id number] COMMENT N/A 10/23/2017 Test(s) Not Perfromed [id number] Electrician Telephone Gian Johnson 10/23/2017 Comp Metabolic Dss242 NA 137 mEq/L 03/21/2016 Comp Metabolic Jdd454 K 4.6 mEq/L 03/21/2016 Comp Metabolic Wef460 CL 101 mEq/L 03/21/2016 Comp Metabolic Mqw941 CO2 31.0 mEq/L 03/21/2016 Comp Metabolic Npj360 AN ION GAP 10 03/21/2016 Comp Metabolic Mav501 GL UCOSE 106 mg/dL 03/21/2016 Comp Metabolic Zde732 Cr eat 1.1 mg/dL 03/21/2016 Comp Metabolic Eim436 eG FR 69 ml/min/1.73m2 03/21 Comp Metabolic Gis910 BUN 11 mg/dL 03/21/2016 Comp Metabolic Hvl643 B/ C Ratio 9.9 Ratio 03/21/2016 Comp Metabolic Mkp947 CA LCIUM 9.5 mg/dL 03/21/2016 Comp Metabolic Kvv223 AL K PHOS 88 U/L 03/21/2016 Comp Metabolic Dfr744 T(SGOT) 21 U/L 03/21/2016 Comp Metabolic Mwp209 AL T(SGPT) 15 U/L 03/21/2016 Comp Metabolic Fxh355 BI LI T 0.7 mg/dL 03/21/2016 Comp Metabolic Rsc367 AL BUMIN 4.2 g/dL 03/21/2016 Comp Metabolic Rob791 TP RO 7.9 g/dL 03/21/2016 Comp Metabolic Xab923 GL OB 3.7 g/dL 03/21/2016 Comp Metabolic Tah746 A/ G Ratio 1.1 Ratio 03/21/2016 Comp Metabolic Prt462 Os mo 274 mOsmo 03/21/2016 Lipid Ord30 [...] 31.3 pg 03/21/2016 Cbc With Differential Ord2 [place]% 10.3 % 03/21/2016 Cbc With Differential Ord2 [...] 2.51 K/ul 03/21/2016 Cbc With Differential Ord2 [place] ABS# 1.2 K/ul 03/21/2016 Cbc With Differential Ord2 Eos ABS# 0.7 K/ul 03/21/2016 Cbc With Differential Ord2 Baso ABS# 0.0 K/ul 03/21/2016 Clostridium Diff Tox A/B Ele401 Cdiff Negative 02/01/2016 Culture Mrsa [id number] MRSA CULTURE SEE NOTES 04/09/2015 Digoxin Ord9 [...] Ord9 DIGOXIN 1.0 NG/ML 03/11/2015 Comp Metabolic Hyx047 NA 142 mEq/L 03/11/2015 Comp Metabolic Fff454 K 4.4 mEq/L 03/11/2015 Comp Metabolic Pqw379 CL 107 mEq/L 03/11/2015 Comp Metabolic Fqg878 CO2 27.0 mEq/L 03/11/2015 Comp Metabolic Moj512 AN ION GAP 12 03/11/2015 Comp Metabolic Kqu203 GL UCOSE 106 mg/dL 03/11/2015 Comp Metabolic Wrd829 Cr eat 1.1 mg/dL 03/11/2015 Comp Metabolic Tno368 eG FR 68 ml/min/1.73m2 03/11 Comp Metabolic Qvd641 BUN 16 mg/dL 03/11/2015 Comp Metabolic Ogo325 B/ C Ratio 14.3 Ratio 03/11/2015 Comp Metabolic Rqr787 CA LCIUM 9.5 mg/dL 03/11/2015 Comp Metabolic Cpa562 AL K PHOS 82 U/L 03/11/2015 Comp Metabolic Mfs215 T(SGOT) 20 U/L 03/11/2015 Comp Metabolic Xxc579 AL T(SGPT) 17 U/L 03/11/2015 Comp Metabolic Nma189 BI LI T 0.4 mg/dL 03/11/2015 Comp Metabolic Nft568 AL BUMIN 4.0 g/dL 03/11/2015 Comp Metabolic Mdd944 TP RO 6.9 g/dL 03/11/2015 Comp Metabolic Zzb118 GL OB 2.9 g/dL 03/11/2015 Comp Metabolic Ons417 A/ G Ratio 1.4 Ratio 03/11/2015 Comp Metabolic Fiy801 Os mo 285 mOsmo 03/11/2015 Metabolic Ord15 [...] inspection of skin Location: face 11/01/2018 right rastafari, forehead, l eft rastafari - irrirated actinic keratosis Full Exam - [...] inspection of skin Location: face 04/23/2018 right rastafari, forehead, l eft rastafari - irrirated actinic keratosis Full Exam - [...] inspection of skin Location: face 10/22/2017 right rastafari, forehead, l eft rastafari - irrirated actinic keratosis Full Exam - [...] inspection of skin Location: face 03/21/2016 right rastafari, forehead, l eft rastafari - irrirated actinic keratosis Full Exam - [...] inspection of skin Location: face 11/23/2015 right rastafari, left rastafari - irrirated actinic keratosis Full Exam - [...] inspection of skin Location: face 07/06/2015 right rastafari, forehead, l eft rastafari - irrirated actinic keratosis Full Exam - [...] CPT-4: J3301 07/08/2018 THER/PROPH/DIAG INJ SC/IM CPT-4: 79814 07/08/2018 THER/PROPH/DIAG INJ SC/IM CPT-4: 38730 02/28/2018 ROCEPHIN, PER 250 MG CPT-4: J0696 02/28/2018 THER/PROPH/DIAG INJ SC/IM CPT-4: 75252 02/26/2018 TRIAMCINOLONE ACET I [place] NOS CPT-4: J3301 02/26/2018 PPPS, SUBSEQ VISIT CPT- 4: G0439 2017 TRIAMCINOLONE ACET I [place] NOS CPT-4: J3301 06/29/2017 THER/PROPH/DIAG INJ SC/IM CPT-4: 85687 02/06/2017 ROCEPHIN, PER 250 MG CPT-4: J0696 02/06/2017 ROCEPHIN, PER 250 MG CPT-4: J0696 09/27/2016 TRIAMCINOLONE ACET I [place] NOS CPT-4: J3301 09/27/2016 THER/PROPH/DIAG INJ SC/IM CPT-4: 65161 09/27/2016 DESTRUCT PREMALG LESION CPT-4: 34930 10/14/2015 DESTRUCT PREMALG LESION CPT-4: 68334 07/20/2015 DESTRUCT PREMALG LESION CPT-4: 89428 07/06/2015 DESTRUCT PREMALG LES 2-14 CPT-4: 51220 07/06/2015 TRIAMCINOLONE ACET I [place] NOS CPT-4: J3301 02/02/2015 Vital Signs Date Vital 11/22/2018 Blood Pressure 1: 110/58 Code: 8480-6 Heart Rate 1: 74 bpm Height: 5'8" SpO2: 98% Weight: 11/01/2018 Blood Pressure 1: 120/70 Code: 8480-6 Heart Rate 1: 72 bpm Height: SpO2: 98% Weight: 07/08/2018 Blood Pressure 1: 134/64 Code: 8480-6 BMI: 30.6 Code: 33168-5 Heart Rate 1: 79 bpm Height: 5'8" SpO2: 98% Weight: 201 lbs 06/04/2018 Blood Pressure 1: 130/62 Code: 8480-6 BMI: 30.6 Code: 89181-9 Heart Rate 1: 88 bpm Height: 5'8" SpO2: 97% Weight: 201 lbs 04/23/2018 Blood Pressure 1: 130/72 Code: 8480-6 BMI: 30.1 Code: 71903-1 Heart Rate 1: 74 bpm Height: 5'8" SpO2: 97% Weight: 198 lbs 02/28/2018 Blood Pressure 1: 124/72 Code: 8480-6 BMI: 30.0 Code: 00035-0 Heart Rate 1: 69 bpm Height: 5'8" SpO2: 97% Temperature: 36.6 (C ) / 97.8 (F) Weight: 197 lbs 02/19/2018 Blood Pressure 1: 128/76 Code: 8480-6 BMI: 30.0 Code: 51321-7 Heart Rate 1: 66 bpm Height: 5'8" SpO2: 97% Weight: 197 lbs 11/09/2017 Blood Pressure 1: 130/74 Code: 8480-6 BMI: 29.3 Code: 18628-9 Heart Rate 1: 81 bpm Height: 5'8" SpO2: 98% Temperature: 36.6 (C ) / 97.9 (F) Weight: 193 lbs 10/22/2017 Blood Pressure 1: 132/82 Code: 8480-6 BMI: 29.0 Code: 19757-2 Heart Rate 1: 80 bpm Height: 5'8" SpO2: 98% Weight: 191 lbs 2017 Blood Pressure 1: 142/68 Code: 8480-6 BMI: 28.7 Code: 91578-3 Heart Rate 1: 62 bpm Height: 5'8" SpO2: 98% Waist Measure (cm): 102 cm Weight: 189 lbs 07/23/2017 Blood Pressure 1: 138/84 Code: 8480-6 BMI: 29.0 Code: 25671-4 Heart Rate 1: 69 bpm Height: 5'8" SpO2: 98% Weight: 191 lbs 07/09/2017 Blood Pressure 1: 120/82 Code: 8480-6 BMI: 29.2 Code: 17098-9 Heart Rate 1: 80 bpm Height: 5'8" SpO2: 98% Weight: 192 lbs 06/29/2017 Blood Pressure 1: 140/82 Code: 8480-6 BMI: 29.5 Code: 81729-7 Heart Rate 1: 83 bpm Height: 5'8" SpO2: 98% Weight: 194 lbs 04/23/2017 Blood Pressure 1: 132/74 Code: 8480-6 BMI: 28.4 Code: 30702-6 Heart Rate 1: 78 bpm Height: 5'8" SpO2: 97% Weight: 187 lbs 04/10/2017 Blood Pressure 1: 126/68 Code: 8480-6 BMI: 29.5 Code: 41010-5 Heart Rate 1: 68 bpm Height: 5'8" SpO2: 92% Temperature: 37.5 (C ) / 99.5 (F) Weight: 194 lbs 03/29/2017 Blood Pressure 1: 116/76 Code: 8480-6 BMI: 29.6 Code: 01355-8 Heart Rate 1: 61 bpm Height: 5'8" SpO2: 98% Weight: 195 lbs 02/06/2017 Blood Pressure 1: 130/74 Code: 8480-6 BMI: 30.4 Code: 18907-1 Heart Rate 1: 71 bpm Height: 5'8" SpO2: 98% Weight: 200 lbs 11/06/2016 Blood Pressure 1: 140/74 Code: 8480-6 BMI: 29.5 Code: 76569-1 Heart Rate 1: 76 bpm Height: 5'8" SpO2: 96% Weight: 194 lbs 09/27/2016 Blood Pressure 1: 138/78 Code: 8480-6 BMI: 29.6 Code: 75421-0 Heart Rate 1: 68 bpm Height: 5'8" SpO2: 97% Weight: 195 lbs 03/21/2016 Blood Pressure 1: 148/82 Code: 8480-6 BMI: 30.6 Code: 60283-5 Heart Rate 1: 67 bpm Height: 5'8" SpO2: 98% Weight: 201 lbs 02/01/2016 Blood Pressure 1: 128/86 Code: 8480-6 BMI: 30.3 Code: 11981-5 Heart Rate 1: 84 bpm Height: 5'8" SpO2: 96% Weight: 199 lbs 11/23/2015 Blood Pressure 1: 132/76 Code: 8480-6 BMI: 30.4 Code: 55798-6 Heart Rate 1: 81 bpm Height: 5'8" SpO2: 98% Weight: 200 lbs 10/14/2015 Blood Pressure 1: 120/80 Code: 8480-6 BMI: 30.4 Code: 20751-8 Heart Rate 1: 87 bpm Height: 5'8" SpO2: 97% Weight: 200 lbs 07/20/2015 Blood Pressure 1: 132/84 Code: 8480-6 BMI: 31.0 Code: 89944-3 Heart Rate 1: 78 bpm Height: 5'8" SpO2: 96% Weight: 204 lbs 07/06/2015 Blood Pressure 1: 130/78 Code: 8480-6 BMI: 31.0 Code: 85194-1 Heart Rate 1: 80 bpm Height: 5'8" SpO2: 98% Weight: 204 lbs 03/29/2015 Blood Pressure 1: 132/82 Code: 8480-6 BMI: 29.6 Code: 32124-2 Heart Rate 1: 76 bpm Height: 5'8" SpO2: 96% Weight: 195 lbs 03/08/2015 Blood Pressure 1: 126/84 Code: 8480-6 BMI: 30.2 Code: 85705-3 Heart Rate 1: 101 bpm Height: 5'8" SpO2: 98% Weight: 198 lbs 8 oz 02/02/2015 Blood Pressure 1: 132/86 Code: 8480-6 Heart Rate 1: 86 bpm SpO2: 98% Temperature: 36.6 (C ) / 97.8 (F) Weight: 198 lbs 09/22/2014 Blood Pressure 1: 128/80 Code: 8480-6 BMI: 29.3 Code: 05949-4 Heart Rate 1: 85 bpm Height: 5'8" [...] exercise 2017 None Annual Medicare Wellness Exam Reji garcia Stress usually shyanne effectively 2017 None Annual [...] Encounter Performer Loca tion Codes Date ( [id number] EST. P ATIENT, LEVEL IV Diagnosis: Hypo-osmolality and hyponatremia[ICD10: E87.1] Diagnosis: Muscle weakness (generalized)[ICD10: M62.81] Diagnosis: Other emphysema[ICD10: J43.8] Lucrecia Parsons MD, [facility] CPT- 4: [id number] 11/22/2018 [id number] EST. PATIENT, LEVEL V Diagnosis: Muscle weakness (generalized)[ICD10: M62.81] Diagnosis: Rash and other nonspecific skin eruption[ICD10: R21] Diagnosis: Other hemorrhoids[ICD10: K64.8] Diagnosis: Hypo-osmolality and hyponatremia[ICD10: E87.1] Diagnosis: Other emphysema[ICD10: J43.8] Diagnosis: Paroxysmal atrial fibrillation[ICD10: I48.0] Diagnosis: Encounter for follow-up examination after completed treatment for conditions other than malignant neoplasm[ICD10: Z09] Diagnosis: Essential (primary) hypertension[ICD10: I10] Lucrecia Parsons MD, [facility] CPT-4: 35949 11/01/2018 86094 EST. PATIENT, LEVEL IV Diagnosis: Other acute sinusitis[ICD10: J01.80] Diagnosis: Other allergic rhinitis[ICD10: J30.89] Diagnosis: Other mucopurulent conjunctivitis, right eye[ICD10: H10.021] [facility] CPT-4: 90708 07/08/2018 49090 EST. PATIENT, LEVEL III Diagnosis: Cellulitis of right upper limb[ICD10: L03.113] Sandra Parsons MD, [facility] CPT-4: 08177 06/04/2018 ([id number]) 68343 EST. P ATIENT, LEVEL IV Diagnosis: Essential (primary) hypertension[ICD10: I10] Diagnosis: Chronic atrial fibrillation[ICD10: I48.2] Diagnosis: Mixed hyperlipidemia[ICD10: E78.2] Steffany Parsons MD, [facility] CPT- 4: 63389 04/23/2018 08536 EST. PATIENT, LEVEL IV Diagnosis: Other acute sinusitis[ICD10: J01.80] Diagnosis: Other allergic rhinitis[ICD10: J30.89] Sandra Parsons MD, [facility] CPT-4: 41574 02/28/2018 75076 EST. PATIENT, LEVEL IV Diagnosis: Other acute sinusitis[ICD10: J01.80] Diagnosis: Other allergic rhinitis[ICD10: J30.89] Sandra Parsons MD, [facility] CPT-4: 72603 02/19/2018 45951 EST. PATIENT, LEVEL III Diagnosis: Acute laryngopharyngitis[ICD10: J06.0] Diagnosis: Other allergic rhinitis[ICD10: J30.89] Sandra Parsons MD, [facility] CPT-4: 89481 11/09/2017 ([id number]) 45481 EST. P ATIENT, LEVEL IV Diagnosis: Essential (primary) hypertension[ICD10: I10] Diagnosis: Chronic atrial fibrillation[ICD10: I48.2] Steffany Parsons MD, [facility] CPT-4: 06976 10/22/2017 ([id number]) 93285 EST. P ATIENT, LEVEL IV Diagnosis: Essential (primary) hypertension[ICD10: I10] Diagnosis: Chronic atrial fibrillation[ICD10: I48.2] Diagnosis: Cough[ICD10: R05] Steffany Parsons MD, [facility] CPT-4: 30877 07/23/2017 ([id number]) 05512 EST. P ATIENT, LEVEL III Diagnosis: Cough[ICD10: R05] Diagnosis: Other allergic rhinitis[ICD10: J30.89] Diagnosis: Chronic obstructive pulmonary disease with (acute) exacerbation[ICD10: J44.1] Lucrecia Parsons MD, [facility] CPT-4: 70051 07/09/2017 ([id number]) 85954 EST. P ATIENT, LEVEL III Diagnosis: Cough[ICD10: R05] Diagnosis: Other allergic rhinitis[ICD10: J30.89] Diagnosis: Chronic obstructive pulmonary disease with (acute) exacerbation[ICD10: J44.1] Lucrecia Parsons MD, [facility] CPT-4: 77345 06/29/2017 ([id number]) 14084 EST. P ATIENT, LEVEL III Diagnosis: Essential (primary) hypertension[ICD10: I10] Diagnosis: Cough[ICD10: R05] Steffany Parsons MD, [facility] CPT-4: 62505 04/23/2017 ([id number]) 85082 EST. P ATIENT, LEVEL IV Diagnosis: Hemoptysis[ICD10: R04.2] Diagnosis: Essential (primary) hypertension[ICD10: I10] Diagnosis: Chronic obstructive pulmonary disease with acute lower respiratory infection[ICD10: J44.0] Steffany Parsons MD, [facility] CPT-4: 59710 04/10/2017 45068 EST. PATIENT, LEVEL III Diagnosis: Acute laryngopharyngitis[ICD10: J06.0] Diagnosis: Other allergic rhinitis[ICD10: J30.89] Sandra Parsons MD, [facility] CPT-4: 65022 03/29/2017 ([id number]) 30736 EST. P ATIENT, LEVEL III Diagnosis: Pneumonia due to Mycoplasma pneumoniae[ICD10: J15.7] Diagnosis: Cough[ICD10: R05] Diagnosis: Other chest pain[ICD10: R07.89] Steffany Parsons MD, [facility] CPT-4: 32654 02/06/2017 18623 EST. PATIENT, LEVEL IV Diagnosis: Cough[ICD10: R05] Diagnosis: Shortness of breath[ICD10: R06.02] Diagnosis: Gastro-esophageal reflux disease without esophagitis[ICD10: K21.9] Sandra Parsons MD, [facility] CPT-4: 51072 11/06/2016 05029 EST. PATIENT, LEVEL IV Diagnosis: Other allergic rhinitis[ICD10: J30.89] Diagnosis: Acute bronchitis due to other specified organisms[ICD10: J20.8] Sandra Parsons MD, [facility] CPT-4: 16153 09/27/2016 ([id number]) 89980 EST. P ATIENT, LEVEL IV Diagnosis: Essential (primary) hypertension[ICD10: I10] Diagnosis: Chronic atrial fibrillation[ICD10: I48.2] Diagnosis: Encounter for therapeutic drug level monitoring[ICD10: Z51.81] Steffany Parsons MD, [facility] CPT-4: 58881 03/21/2016 ([id number]) 13572 EST. 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 P ATIENT, LEVEL III Diagnosis: Allergic rhinitis due to pollen[ICD10: J30.1] Diagnosis: Actinic keratosis[ICD10: L57.0] Lucrecia Parsons MD, [facility] CPT- 4: 14023 10/14/2015 ([id number]) 65769 EST. P ATIENT, LEVEL IV Diagnosis: Essential (primary) hypertension[ICD10: I10] Diagnosis: Chronic atrial fibrillation[ICD10: I48.2] Steffany Parsons MD, [facility] CPT-4: 61845 07/06/2015 70792 EST. PATIENT, LEVEL III Diagnosis: Essential (primary) hypertension[ICD10: I10] Diagnosis: Chronic atrial fibrillation[ICD10: I48.2] Diagnosis: Shortness of breath[ICD10: R06.02] Diagnosis: Melena[ICD10: K92.1] Sandra Parsons MD, [facility] CPT-4: 60051 03/29/2015 ([id number]) 88870 EST. P ATIENT, LEVEL IV Diagnosis: Essential (primary) hypertension[ICD10: I10] Diagnosis: Chronic atrial fibrillation[ICD10: I48.2] Diagnosis: Cough[ICD10: R05] Steffany Parsnos MD, [facility] CPT-4: 23733 03/08/2015 ([id number]) 51673 EST. [facility] III Diagnosis: Other seasonal allergic rhinitis[ICD10: J30.2] Diagnosis: Other lesions of oral mucosa[ICD10: K13.79] [facility] CPT-4: 91935 02/02/2015 ([id number]) OFFICE VISI T [facility] - LEVEL 4 Diagnosis: ESSENTIAL HYPERTENSION[ICD9: 401.9] Diagnosis: HYPERLIPIDEMIA[ICD9: 272.4] Diagnosis: ACTINIC KERATOSIS[ICD9: 702.0] [facility] CPT-4: 55428 09/22/2014 Plan of Care Planned Activity Notes C odes Status Date Visit Plan: Low sodium -repeat labs today-continue gatorade Weakness -post prolonged hospitalization -patient is doing well -transferring with stand by assist -passed home safety evaluation -plans to d/c to home on 12/04/18 Emphysema- patient is off oxygen and breathing treatments decreased to three times daily -continues to f/u with Dr Mijares 11/22/2018 Patient Education: Patient Medication Summary Completed 11/22/2018 Care Plan: Electrolytes Pending 11/22/2018 Visit Plan: Hospital follow up -pul monary hemorrhage with pneumonia-continue with oxygen at 2 liters -keep appt with Dr Mijares as scheduled -continue breathing treatments as ordered Generalized weakness -due to prolonged hospitalization -he is doing PT/OT at [facility] -he did stand for 10 seconds twice [...] Summary Completed 11/01/2018 Appointment: Steffany Parsons WPtel: [facility] (15 min) Moderate 10/22/2018 Appointment: Steffany Parsons WPtel: [address] [place], [place] [address] (15 min) Moderate 09/30/2018 Appointment: Steffany Parsons WPtel: [facility]5 [facility] (15 min) Moderate 09/19/2018 Visit Plan: Sinusitis [...] times daily. 07/08/2018 Appointment: Sandra Tim WPtel: [facility]5 [facility] (15 min) Moderate 07/08/2018 Patient Education: Patient [...] warmth, discharge. 06/04/2018 Appointment: Sandra Tim WPtel: [facility]3 [facility] (30 min) Complex 06/04/2018 Patient Education: Patient [...] time. 04/23/2018 Appointment: Steffany Parsons WPtel: [phone] [facility] (15 min) Moderate 04/23/2018 Patient Education: Patient [...] spray. 02/28/2018 Appointment: Sandra Tim WPtel: [phone] [facility] (15 min) Moderate 02/28/2018 Patient Education: Patient [...] allergy spray. 02/19/2018 Appointment: Sandra Tim WPtel: [address] [place], [place] [phone] (15 min) Moderate 02/19/2018 Patient Education: [...] allergy spray. 11/09/2017 Appointment: Sandra Tim WPtel: [address] [place], [place] [phone] (15 min) Moderate 11/09/2017 Patient Education: Patient [...] uncontrolled. 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 07/09/2017 Appointment: Lucrecia Yeager WPtel: [facility]5 [phone] (30 min) Complex 07/09/2017 Patient Education: Patient [...] monitor for acute changes. 06/29/2017 Appointment: Lucrecia Yeaegr WPtel: [facility]5 [phone] (15 min) Moderate 06/29/2017 Patient Education: Patient Medication Summary Completed 06/29/2017 Appointment: Steffany Parsons WPtel: [address] [place], [place] [phone] (15 min) Moderate 04/30/2017 Visit Plan: Hypertension [...] Parsons WPtel: [phone] [facility] (15 min) Moderate 04/23/2017 Patient Education: Patient Medication Summary Completed 04/23/2017 Visit Plan: Hemoptysis and COPD exa cerbation - continue with antibiotics, rx for antifungal tablet and suspension. chest xray ordered, monitor symptoms. Pt to stop aspirin x 1 week, continue with eliquis. call if s ymptoms are not improving. rx for phenergan with codeine. 04/10/2017 Appointment: Steffany Parsons WPtel: [facility]6 [facility]6[address] (15 min) Moderate 04/10/2017 Patient Education: Patient [...] allergy spray. 03/29/2017 Appointment: Sandra Tim WPtel: [facility]7 [facility] [place] (15 min) Moderate 03/29/2017 Patient [...] cough. 02/06/2017 Appointment: Steffany Parsons WPtel: [phone] [facility] [place] (15 min) Moderate 02/06/2017 Patient Education: Patient [...] not improving. 11/06/2016 Appointment: Sandra Tim WPtel: [facility] (15 min) Moderate 11/06/2016 Patient Education: [...] acutely worsen. 09/27/2016 Appointment: Sandra Tim WPtel: [facility]4 [facility] (30 min) Complex 09/27/2016 Patient Education: Patient [...] becoming uncontrolled. 03/21/2016 Appointment: Steffany Parsons WPtel: [facility]4 [facility]6[address] (15 min) Moderate 03/21/2016 Patient Education: Patient Medication Summary Completed 03/21/2016 Patient Education: Obesity Completed 03/21/2016 Visit Plan: Diarrhea-recent abx use -check stool for cdiff- increase probiotic to twice daily-bland diet advance as tolerated-call if symptoms do not resolve or if any worse. Patient verbalized understanding of pl an. 02/01/2016 Appointment: Lucrecia Yeager WPtel: [phone] (15 min) Moderate 02/01/2016 Patient Education: Patient Medication Summary Completed 02/01/2016 Patient Education: Obesity Completed 02/01/2016 Referral: Alexi Honeycutt [facility] Info faxed Completed 11/27/2015 Visit Plan: Hypertension [...] Summary Completed 11/23/2015 Appointment: Steffany Parsons WPtel: [facility]1 [facility] (15 min) Moderate 11/15/2015 Visit Plan: Allergies [...] not heal 10/14/2015 Appointment: Lucrecia Yeager WPtel: [facility]6 [place] [phone] (15 min) Moderate 10/14/2015 Patient Education: Patient [...] acute concerns. 07/20/2015 Appointment: Lucrecia Yeager WPtel: [facility]7 [phone] (30 min) Complex 07/20/2015 Patient Education: [...] acute concerns. 07/06/2015 Appointment: Steffany Parsons WPtel: [facility]3 [facility] (15 min) Moderate 07/06/2015 Patient Education: Patient [...] - pt has an upcoming appointment with quality control specialist to possibly have an ablation done. [...] Patient Education: Hypertension Completed 03/08/2015 [facility] [facility] Completed 02/13/2015 Visit Plan: Allergies [...] 02/02/2015 Care Plan: Referral Order SNOMED-CT : [id number] Ordered 02/02/2015 Visit Plan: Hypertension - well [...] not improving. 09/22/2014 Appointment: Steffany Parsons WPtel: [facility]5 [place] [phone] [place] ([place]) New Patient 09/22/2014 Patient Education: Patient Medication Summary Completed 09/22/2014 Patient Education: Hypertension Completed 09/22/2014 Referral: Alexi Honeycutt [address] Referral Initiated Instructions Comment . Hypertension - [...] start the doxycycline take a probiotic (culturelle, Echobit, or generic) twice a day while on [...] eye four times daily. . 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 [...] prolonged hospitalization -he is doing PT/OT at [facility] -he did stand for 10 seconds twice [...]
--- OUTSIDE RECORDS SUMMARY | 2019-07-22 16:12 | XMS REPORT | CCD ---
Author Author Vishnu Parsons Organization [facility] Address [address] [place] [address] Phone Care Team Providers Care Vp Mobile Products Name Role Phone PP Unavailable CCM Unavailable Summary Purpose Interface Exchange Insurance Providers Payer name Policy type / Coverage type Covered republican ID Effective Begin Date Effective End Date [facility] Commercial Insurance [id number] Unknown Unknown Family history Father Diagnosis Age At Onset Prostate Cancer Unknown Runs in the family Diagnosis Age At Onset Hypertension Unknown Mother Diagnosis Age At Onset No Family Disease Entered N/A Social History Social History Element Codes Description Effective Dates Marital status Unknown M arried Mary 02/06/2017 Number of children Unknown 5 09/22/[address]: 6087748 Quit over 10 years ago 09/22/[address]: 380931900 Never drinks alcohol 09/22/2014 Allergies, Adverse Reactions, Alerts Substance Reaction Codes Entered Date Inactivated Date Status * NO KNOWN DRUG YOSSI RGIES Unknown 09/22/2014 No Inactive Date Active Past Medical History Illness Codes Condition Status Onset Date Resolved Date Encounter for follow -up examination after completed treatment for conditions other than malignant neoplasm ICD-9: V67.59 ICD-10: Z09 Active 11/01/2018 Unknown Essential (primary) hypertension ICD-9: 401.1 ICD-10: I10 Active 11/01/2018 Unknown Hypo-osmolality and hyponatremia ICD-9: 276.1 ICD-10: E87.1 Active 11/01/2018 Unknown Muscle weakness (gen eralized) ICD-9: 728.87 ICD-10: M62.81 Active 11/01/2018 Unknown Other emphysema ICD-9: 492.8 ICD-10: J43.8 Active 11/01/2018 Unknown Other hemorrhoids ICD-9: 455.8 [...] Condition Codes Effectiv e Dates Condition Status Encounter for follow -up examination after completed treatment for conditions other than malignant neoplasm ICD-9: V67.59 ICD-10: Z09 11/01/2018 Active Essential (primary) hypertension ICD-9: 401.1 ICD-10: I10 11/01/2018 Active Hypo-osmolality and hyponatremia ICD-9: 276.1 ICD-10: E87.1 11/01/2018 Active Muscle weakness (gen eralized) ICD-9: 728.87 ICD-10: M62.81 11/01/2018 Active Other emphysema ICD-9: 492.8 ICD-10: J43.8 11/01/2018 Active Other hemorrhoids ICD-9: 455.8 ICD-10: [...] Date Stop Date Sta tus Fill Instructions metoprolol tartrate 25 mg tablet RxNorm: 407966 1 Tablet(s) PO BID 11/01/2018 01/24/2020 Active ipratropium-albutero l 0.5 mg-3 mg(2.5 mg base)/3 mL nebulization soln RxNorm: 9300822 1 INH Q4H and q 2 hours prn 11/02/19 19 No Stop Date Active melatonin 10 mg disi ntegrating tablet RxNorm: 7365723 1 Tablet(s) PO daily 11/01/2018 No Stop Date Active Flonase Allergy Reli ef 50 mcg/actuation nasal spray,suspension RxNorm: 3108533 2 Stanley NASAL daily as needed 2018 No Stop Date Active Lasix 20 mg tablet RxNorm: 003683 Tablet(s) PO Q72H 11/01/2018 No Stop Date Active Lialda 1.2 gram tabl et,delayed release RxNorm: 003386 2 Tablet(s) PO QHS -P rescried by Dr. Seymour 11/01/2018 No Stop Date Active diphenoxylate-atropi ne 2.5 mg-0.025 mg tablet RxNorm: 8279628 1/2 Tablet(s) PO Q12 H and q 1 q 6 hours prn 11/01/2018 No Stop Date Active Imodium A-D 2 mg tablet RxNorm: 836512 1/2 Tablet(s) PO BID 11/01/2018 No Stop Date Active losartan 50 mg tablet RxNorm: 439856 1 Tablet(s) PO QPM at supper 11/01/2018 No Stop Date Active Coumadin 3 mg tablet RxNorm: 667832 1 Tablet(s) PO TIW M W F 10/30/2018 11/28/2018 Active Klor-Con M20 mEq tab let,extended release RxNorm: 2925544 TAKE 1 TABLET EVERY MORNING 10/01/2018 10/31/2018 Inactive doxycycline hyclate 100 mg capsule RxNorm: 3933098 1 Capsule(s) PO BID 07/31/2018 08/09/2018 In active doxycycline hyclate 100 mg capsule RxNorm: 8079952 1 Capsule(s) PO BID 07/08/2018 07/17/2018 In active Kenalog 40 mg/mL nori pension for injection RxNorm: 9659004 1 Milliliter(s) Inj 07/08/2018 07/08/2018 In active ciprofloxacin 0.3 % eye drops RxNorm: 491124 2 Drop(s) ophthalmic (eye) Q2H while awake x 2 days then Q4H x 5 days 07/08/2018 10/31/2018 Inactive Keflex 500 mg capsule RxNorm: 047739 1 Capsule(s) PO TID 07/02/2018 07/08/2018 Inactive dapsone 100 mg tablet RxNorm: 990557 1 Tablet(s) PO daily 06/04/2018 06/10/2018 Inactive doxycycline hyclate 100 mg capsule RxNorm: 3293287 1 Capsule(s) PO BID 06/04/2018 06/13/2018 In active Lasix 40 mg tablet RxNorm: 157614 TAKE 1 TABLET DAILY 04/22/2018 10/31/2018 Inactive prednisone 20 mg tablet RxNorm: 267956 2 Tablet(s) PO daily 02/28/2018 03/04/2018 Inactive START TOMORROW Keflex 500 mg capsule RxNorm: 549474 1 Capsule(s) PO TID 02/28/2018 03/09/2018 Inactive ceftriaxone 500 mg s olution for injection RxNorm: 8879298 Inj 02/28/2018 02/28/2018 Inactive Kenalog 40 mg/mL nori pension for injection RxNorm: 3352788 Milliliter(s) Inj 02/26/2018 02/26/2018 In active Keflex 500 mg capsule RxNorm: 895668 1 Capsule(s) PO TID 02/19/2018 02/25/2018 Inactive Klor-Con M20 mEq tab let,extended release RxNorm: 7289811 TAKE 1 TABLET EVERY MORNING 12/04/2017 09/30/2018 Inactive prednisone 20 mg tablet RxNorm: 687050 2 Tablet(s) PO daily 11/16/2017 11/20/2017 Inactive START TOMORROW Zithromax Z-Mau 250 mg tablet RxNorm: 974383 1 Tablet(s) PO daily 11/16/2017 11/20/2017 Inactive Zithromax Z-Mau 250 mg tablet RxNorm: 805360 1 Tablet(s) PO daily 11/16/2017 11/15/2017 Inactive Keflex 500 mg capsule RxNorm: 807073 1 Capsule(s) PO TID 11/09/2017 11/15/2017 Inactive Zithromax 250 mg tablet RxNorm: 903663 [address] day and 1 tab po on day 2-5 Tablet(s) PO 08/30/2017 09/03/2017 Inactive zpack x 1 doxycycline hyclate 100 mg tablet RxNorm: 488907 1 Tablet(s) PO BID 07/09/2017 07/15/2017 Inactive prednisone 20 mg tablet RxNorm: 057840 2 Tablet(s) PO daily 06/29/2017 07/01/2017 Inactive START TOMORROW Kenalog 40 mg/mL nori pension for injection RxNorm: 0581639 Milliliter(s) Inj 06/29/2017 06/29/2017 In active Lasix 40 mg tablet RxNorm: 013675 TAKE 1 TABLET DAILY 04/24/2017 04/21/2018 Inactive Diflucan 150 mg tablet RxNorm: 794000 1 Tablet(s) PO daily 04/10/2017 04/16/2017 Inactive Bactrim DS 800 mg-16 0 mg tablet RxNorm: 655604 1 Tablet(s) PO BID 04/10/2017 04/16/2017 Inactive nystatin 100,000 uni t/mL oral suspension RxNorm: 769166 5 Milliliter(s) PO QI D 04/10/2017 04/19/2017 In active cefdinir 300 mg capsule RxNorm: 577502 1 Capsule(s) PO BID 03/28/2017 04/06/2017 Inactive cefdinir 300 mg capsule RxNorm: 862231 1 Capsule(s) PO BID 02/06/2017 02/15/2017 Inactive ceftriaxone 500 mg s olution for injection RxNorm: 6124515 Inj 02/06/2017 02/06/2017 Inactive omeprazole 20 mg tab let,delayed release RxNorm: 531119 1 Tablet(s) PO daily 11/06/2016 12/05/2016 In active Phenergan with Codei ne Syrup RxNorm: 5 Milliliter(s) PO QID as n eeded 10/30/2016 10/31/2018 In active Tessalon Perles 100 mg capsule RxNorm: 030516 1-2 Capsule(s) PO TID as needed cough 10/30/2016 11/08/2016 In active Klor-Con M20 mEq tab let,extended release RxNorm: 7764448 TAKE 1 TABLET EVERY MORNING 10/26/2016 12/03/2017 Inactive ceftriaxone 500 mg s olution for injection RxNorm: 6232736 1 Milliliter(s) Inj 09/27/2016 09/27/2016 In active Phenergan with Codei ne Syrup RxNorm: 5 Milliliter(s) PO QID as n eeded 09/27/2016 10/29/2016 In active Tessalon Perles 100 mg capsule RxNorm: 131524 1-2 Capsule(s) PO TID as needed cough 09/27/2016 09/29/2016 In active Kenalog 40 mg/mL nori pension for injection RxNorm: 1769898 1 Milliliter(s) Inj 09/27/2016 09/27/2016 In active Flagyl 500 mg tablet RxNorm: 342097 1 Tablet(s) PO TID 2016 08/05/2016 Inactive Lasix 40 mg tablet RxNorm: 733385 TAKE 1 TABLET DAILY 07/26/2016 04/23/2017 Inactive Zithromax 250 mg tablet RxNorm: 354557 [address] day and 1 tab po on day 2-5 Tablet(s) PO 03/28/2016 03/27/2016 Inactive zpack x 1 Zithromax 250 mg tablet RxNorm: 542575 [address] day and 1 tab po on day 2-5 Tablet(s) PO 03/28/2016 04/01/2016 Inactive zpack x 1 Flagyl 500 mg tablet RxNorm: 856265 1 Tablet(s) PO TID 02/07/2016 02/06/2016 Inactive Flagyl 500 mg tablet RxNorm: 930304 1 Tablet(s) PO TID 02/07/2016 02/16/2016 Inactive Zyrtec-D 5 mg-120 mg tablet,extended release RxNorm: 2210204 1 Tablet(s) PO daily as needed allergies 11/23/2015 10/31/2018 Inactive Imodium A-D 2 mg tablet RxNorm: 197233 1/2 Tablet(s) PO daily 11/23/2015 10/31/2018 Inactive Mucinex 600 mg table t, extended release RxNorm: 072642 1 Tablet(s) PO BID as needed 11/23/2015 01/21/2016 In active Lasix 40 mg tablet RxNorm: 335275 TAKE 1 TABLET DAILY 11/01/2015 07/25/2016 Inactive Klor-Con M20 mEq tab let,extended release RxNorm: 4604270 TAKE 1 TABLET EVERY MORNING 11/01/2015 10/25/2016 Inactive Flonase Allergy Reli ef 50 mcg/actuation nasal spray,suspension RxNorm: 5577937 2 Stanley NASAL daily 07/20/2015 10/31/2018 Inactive Kenalog 40 mg/mL nori pension for injection RxNorm: 7911177 Milliliter(s) Inj 02/02/2015 02/02/2015 In active Plavix 75 mg tablet RxNorm: 183351 1 Tablet(s) PO daily 10/05/2014 03/07/2015 Inactive Klor-Con M20 mEq tab let,extended release RxNorm: 154541 1 Tablet(s) PO QAM 10/05/2014 10/31/2015 In active Lasix 40 mg tablet RxNorm: 335795 1 Tablet(s) PO daily 10/05/2014 10/31/2015 Inactive Crestor 5 mg tablet RxNorm: 596369 1/2 Tablet(s) PO daily 10/05/2014 10/31/2018 Inactive Efudex 5 % topical c ream RxNorm: 792040 1 Application TOP BID x 2 weeks, allow healing x 1 -2 weeks, then reuse 10/05/2014 07/05/2015 Inactive metoprolol tartrate 100 mg tablet RxNorm: 728149 1 Tablet(s) PO BID 10/05/2014 12/28/2015 Inactive Pradaxa 150 mg capsule RxNorm: 2565042 1 Capsule(s) PO BID 10/05/2014 04/09/2017 Inactive amlodipine 10 mg tablet RxNorm: 090701 1/2 Tablet(s) PO QAM 10/05/2014 07/05/2015 Inactive Efudex 5 % topical c ream RxNorm: 748996 1 Application TOP BID x 2 weeks, allow healing x 1 -2 weeks, then reuse 09/22/2014 10/04/2014 Inactive Klor-Con M20 mEq tab let,extended release RxNorm: 373075 1 Tablet(s) PO QAM 09/22/2014 10/04/2014 In active Lasix 40 mg tablet RxNorm: 328869 1 Tablet(s) PO daily 09/22/2014 10/04/2014 Inactive hydralazine 25 mg ta blet RxNorm: 402738 1 Tablet(s) PO Q6 as needed No Start Date Active Lactobacillus acidop hilus 1 billion cell tablet RxNorm: 035953 1 Tablet(s) PO BID No Start Date Active spironolactone 25 mg tablet RxNorm: 867207 1 Tablet(s) PO daily No Start Date Active duloxetine 20 mg cap marck,delayed release RxNorm: 655503 1 Capsule(s) PO BID No Start Date Active Centrum Silver oral RxNorm: 57234 oral No Start Date Active diltiazem CD 120 mg capsule,extended release 24 hr RxNorm: 078465 1 Capsule(s) PO daily No Start Date Active diclofenac sodium 75 mg tablet,delayed release RxNorm: 552315 1 Tablet(s) PO TID as needed No Start Date Active Coumadin 2 mg tablet RxNorm: 180824 1 Tablet(s) PO 4 times a week T TH Sat S un No Start Date Active Colace 100 mg capsule RxNorm: 5523138 1 Capsule(s) PO BID No Start Date Active magnesium 250 mg tablet RxNorm: 1 Tablet(s) PO daily No Start Date Active loratadine 10 mg tablet RxNorm: 082673 1 Tablet(s) PO daily No Start Date Active Vitamin D3 5,000 uni t tablet RxNorm: 172667 1 Tablet(s) PO BID No Start Date Active pantoprazole 40 mg t ablet,delayed release RxNorm: 904506 1 Tablet(s) PO daily No Start Date Active Glucosamine Chondroi t Complx Advan oral RxNorm: oral No Start D ate Active Cartia XT 180 mg cap marck,extended release RxNorm: 897663 2 Capsule(s) PO daily No Start Date 10/31/2018 Inactive cetirizine 10 mg tablet RxNorm: 0103319 1 Tablet(s) PO daily at lunch No Start Date 10/31/2018 Inactive Canasa 1,000 mg rect al suppository RxNorm: 874340 [address] QHS Dr seymour No Start Date 10/31/2018 Inactive Lialda 1.2 gram tabl et,delayed release RxNorm: 791032 1 Tablet(s) PO QHS -P rescried by Dr. Seymour No Start Date 10/31/2018 Inactive melatonin 1 mg tablet RxNorm: 510208 1 Tablet(s) PO daily No Start Date 10/31/2018 Inactive Plavix 75 mg tablet RxNorm: 338567 1 Tablet(s) PO daily No Start Date 10/04/2014 Inactive Klor-Con M20 mEq tab let,extended release RxNorm: 598231 1 Tablet(s) PO QAM No Start Date 09/21/2014 Inactive diphenoxylate-atropi ne 2.5 mg-0.025 mg tablet RxNorm: 5005327 1/2 Tablet(s) PO Q12 H No Start Date 10/31/2018 Inactive Eliquis 5 mg tablet RxNorm: 5939691 1 Tablet(s) PO BID Dr Avila No Start Date 10/29/2018 Inactive magnesium 200 mg (as magnesium oxide) tablet RxNorm: 159827 1 Tablet(s) PO daily No Start Date 11/01/2018 Inactive Imodium oral RxNorm: oral No Start Date 11/21 Inactive Lasix 40 mg tablet RxNorm: 509780 1 Tablet(s) PO daily No Start Date 09/21/2014 Inactive amlodipine 10 mg tablet RxNorm: 416430 1/2 Tablet(s) PO QAM No Start Date 10/04/2014 Inactive Crestor 5 mg tablet RxNorm: 160492 1/2 Tablet(s) PO daily No Start Date 10/04/2014 Inactive Flonase Allergy Reli ef 50 mcg/actuation nasal spray,suspension RxNorm: 1 Stanley NASAL daily No Start Date 07/19/2015 Inactive aspirin 81 mg capsul e,delayed release RxNorm: 337952 1 Capsule(s) PO daily No Start Date 10/31/2018 Inactive losartan 25 mg tablet RxNorm: 452975 1 Tablet(s) PO QPM at supper No Start Date 10/31/2018 Inactive metoprolol tartrate 100 mg tablet RxNorm: 866291 1 Tablet(s) PO BID No Start Date 10/04/2014 Inactive ipratropium-albutero l 0.5 mg-3 mg(2.5 mg base)/3 mL nebulization soln RxNorm: 6802667 1 INH Q4H No Start Date 10/31/2018 Inactive digoxin 250 mcg tablet RxNorm: 103682 1 Tablet(s) PO daily No Start Date 10/31/2018 Inactive Probiotic 4X oral RxNorm: 4351952 oral No Start Date 07/06/2015 Inactive Probiotic oral RxNorm: 6205 oral No Start Date 10/31/2018 Inactive Pradaxa 150 mg capsule RxNorm: 1558867 1 Capsule(s) PO BID No Start Date 10/04/2014 Inactive Medication Administered Medication Codes Instruc tions Start Date Status Kenalog 40 mg/mL suspension for injection RxNorm: 2807371 1Milliliter 07/08/2018 N o longer Active ceftriaxone 500 mg solution for injection RxNorm: 6794709 02/28/2018 No longer A ctive Kenalog 40 mg/mL suspension for injection RxNorm: 5839871 Milliliter 02/26/2018 No longer Active Kenalog 40 mg/mL suspension for injection RxNorm: 8777315 Milliliter 06/29/2017 No longer Active ceftriaxone 500 mg solution for injection RxNorm: 8736837 02/06/2017 No longer A ctive Kenalog 40 mg/mL suspension for injection RxNorm: 4164863 1Milliliter 09/27/2016 N o longer Active ceftriaxone 500 mg solution for injection RxNorm: 6043387 1Milliliter 09/27/2016 N o longer Active Kenalog 40 mg/mL suspension for injection RxNorm: 7927325 Milliliter 02/02/2015 No longer Active Immunizations Vaccine Codes Date Status SHINGARIX CVX: 121 01/07 completed Influenza CVX: 141 12/26 completed Pneumococcal CVX: 133 completed Influenza CVX: 141 01/10 completed Influenza CVX: 141 01/06 completed Influenza CVX: 141 12/01 completed Zoster CVX: 121 04/02/19 12 completed Pneumococcal CVX: 33 04/2007 completed Assessments Condition Codes Effectiv e Dates Rash and other nonspecific skin eruption ICD-10: R21 ICD-9: 782.1 11/01/2018 Other emphysema ICD-10: J43.8 ICD-9: 492.8 11/01/2018 Essential (primary) hypertension ICD -10: I10 ICD-9: 401.1 11/01/2018 Hypo-osmolality and hyponatremia ICD -10: E87.1 ICD-9: 276.1 11/01/2018 Muscle weakness (generalized) ICD-10 : M62.81 ICD-9: 728.87 11/01/2018 Encounter for follow-up examination afte r [...] Visit Effective Dates Notes Hospital Follow Up 11/01/2018 eye discharge 07/08/2018 [...] 31.4 pg 10/23/2017 Cbc With Differential Ord2 [place]% 8.5 % 10/23/2017 Cbc With Differential Ord2 [...] 2.73 K/ul 10/23/2017 Cbc With Differential Ord2 [place] ABS# 0.9 K/ul 10/23/2017 Cbc With Differential Ord2 Eos ABS# 0.6 K/ul 10/23/2017 Cbc With Differential Ord2 Baso ABS# 0.0 K/ul 10/23/2017 Digoxin Ord9 DIGOXIN 1.0 NG/ML 10/23/2017 Lipid Ord30 CHOL 108 mg/dL 10/23/2017 Lipid Ord30 HDL 39.0 mg/dl 10/23/2017 Lipid Ord30 TRIG 175 mg/dL 10/23/2017 Lipid Ord30 LDL 34 mg/dL 10/23/2017 Lipid Ord30 C/HDL 2.8 Ratio 10/23/2017 Comp Metabolic Ojg386 NA 140 mEq/L 10/23/2017 Comp Metabolic Jmx875 K 4.1 mEq/L 10/23/2017 Comp Metabolic Hgw620 CL 102 mEq/L 10/23/2017 Comp Metabolic Uyk614 CO2 30.0 mEq/L 10/23/2017 Comp Metabolic Jzv379 AN ION GAP 12 10/23/2017 Comp Metabolic Oto892 GL UCOSE 124 mg/dL 10/23/2017 Comp Metabolic Dtp759 Cr eat 1.1 mg/dL 10/23/2017 Comp Metabolic Osi203 eG FR 71 ml/min/1.73m2 10/23 Comp Metabolic Zlx737 BUN 11 mg/dL 10/23/2017 Comp Metabolic Uyw864 B/ C Ratio 10.2 Ratio 10/23/2017 Comp Metabolic Tqf413 CA LCIUM 9.3 mg/dL 10/23/2017 Comp Metabolic Tpm793 AL K PHOS 72 U/L 10/23/2017 Comp Metabolic Dje871 T(SGOT) 21 U/L 10/23/2017 Comp Metabolic Ofh614 AL T(SGPT) 17 U/L 10/23/2017 Comp Metabolic Gtj960 BI LI T 0.8 mg/dL 10/23/2017 Comp Metabolic Fzd285 AL BUMIN 4.3 g/dL 10/23/2017 Comp Metabolic Sfn070 TP RO 7.4 g/dL 10/23/2017 Comp Metabolic Koa676 GL OB 3.1 g/dL 10/23/2017 Comp Metabolic Kze624 A/ G Ratio 1.4 Ratio 10/23/2017 Comp Metabolic Sea395 Os mo 280 mOsmo 10/23/2017 Tsh Ord6 TSH (3rd IS) 3.37 uIU/mL 10/23/2017 Test(s) Not Perfromed [id number] Test(s) Not Performed Test(s) Not Performed. See Below: 10/23/2017 Test(s) Not Perfromed [id number] TEST NAME PSA 10/23/2017 Test(s) Not Perfromed [id number] Rejection Reason PSA Performed yearly at Dr. Stone[facility] 10/23/2017 Test(s) Not Perfromed [id number] COMMENT N/A 10/23/2017 Test(s) Not Perfromed [id number] Hide Spreader Gian Elizondot 10/23/2017 Comp Metabolic Kkt526 NA 137 mEq/L 03/21/2016 Comp Metabolic Bdz952 K 4.6 mEq/L 03/21/2016 Comp Metabolic Nwb264 CL 101 mEq/L 03/21/2016 Comp Metabolic Yyt696 CO2 31.0 mEq/L 03/21/2016 Comp Metabolic Lrs590 AN ION GAP 10 03/21/2016 Comp Metabolic Lnn380 GL UCOSE 106 mg/dL 03/21/2016 Comp Metabolic Zpg937 Cr eat 1.1 mg/dL 03/21/2016 Comp Metabolic Nrf970 eG FR 69 ml/min/1.73m2 03/21 Comp Metabolic Dez241 BUN 11 mg/dL 03/21/2016 Comp Metabolic Pas765 B/ C Ratio 9.9 Ratio 03/21/2016 Comp Metabolic Aux142 CA LCIUM 9.5 mg/dL 03/21/2016 Comp Metabolic Swf934 AL K PHOS 88 U/L 03/21/2016 Comp Metabolic Lsp179 T(SGOT) 21 U/L 03/21/2016 Comp Metabolic Ror646 AL T(SGPT) 15 U/L 03/21/2016 Comp Metabolic Keq412 BI LI T 0.7 mg/dL 03/21/2016 Comp Metabolic Iyw397 AL BUMIN 4.2 g/dL 03/21/2016 Comp Metabolic Ryo526 TP RO 7.9 g/dL 03/21/2016 Comp Metabolic Tuc749 GL OB 3.7 g/dL 03/21/2016 Comp Metabolic Qis536 A/ G Ratio 1.1 Ratio 03/21/2016 Comp Metabolic Wbc254 Os mo 274 mOsmo 03/21/2016 Lipid Ord30 [...] 31.3 pg 03/21/2016 Cbc With Differential Ord2 [place]% 10.3 % 03/21/2016 Cbc With Differential Ord2 [...] 2.51 K/ul 03/21/2016 Cbc With Differential Ord2 [place] ABS# 1.2 K/ul 03/21/2016 Cbc With Differential Ord2 Eos ABS# 0.7 K/ul 03/21/2016 Cbc With Differential Ord2 Baso ABS# 0.0 K/ul 03/21/2016 Clostridium Diff Tox A/B Zia693 Cdiff Negative 02/01/2016 Culture Mrsa [id number] MRSA CULTURE SEE NOTES 04/09/2015 Digoxin Ord9 [...] Ord9 DIGOXIN 1.0 NG/ML 03/11/2015 Comp Metabolic Xpo113 NA 142 mEq/L 03/11/2015 Comp Metabolic Bzd690 K 4.4 mEq/L 03/11/2015 Comp Metabolic Pav692 CL 107 mEq/L 03/11/2015 Comp Metabolic Nyr976 CO2 27.0 mEq/L 03/11/2015 Comp Metabolic Ebz888 AN ION GAP 12 03/11/2015 Comp Metabolic Mbe056 GL UCOSE 106 mg/dL 03/11/2015 Comp Metabolic Gdg079 Cr eat 1.1 mg/dL 03/11/2015 Comp Metabolic Eov244 eG FR 68 ml/min/1.73m2 03/11 Comp Metabolic Ygm588 BUN 16 mg/dL 03/11/2015 Comp Metabolic Jha813 B/ C Ratio 14.3 Ratio 03/11/2015 Comp Metabolic Iwu850 CA LCIUM 9.5 mg/dL 03/11/2015 Comp Metabolic Lix974 AL K PHOS 82 U/L 03/11/2015 Comp Metabolic Hsk649 T(SGOT) 20 U/L 03/11/2015 Comp Metabolic Vkz967 AL T(SGPT) 17 U/L 03/11/2015 Comp Metabolic Awm228 BI LI T 0.4 mg/dL 03/11/2015 Comp Metabolic Etg367 AL BUMIN 4.0 g/dL 03/11/2015 Comp Metabolic Ztm070 TP RO 6.9 g/dL 03/11/2015 Comp Metabolic Rfn651 GL OB 2.9 g/dL 03/11/2015 Comp Metabolic Fdw184 A/ G Ratio 1.4 Ratio 03/11/2015 Comp Metabolic Bey623 Os mo 285 mOsmo 03/11/2015 Metabolic Ord15 [...] System Result Effective Dates Constitutional recent illness 11/01/2018 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 [...] inspection of skin Location: face 11/01/2018 right jainism, forehead, l eft jainism - irrirated actinic keratosis Full Exam - [...] inspection of skin Location: face 04/23/2018 right jainism, forehead, l eft jainism - irrirated actinic keratosis Full Exam - [...] inspection of skin Location: face 10/22/2017 right jainism, forehead, l eft jainism - irrirated actinic keratosis Full Exam - [...] inspection of skin Location: face 03/21/2016 right jainism, forehead, l eft jainism - irrirated actinic keratosis Full Exam - [...] inspection of skin Location: face 11/23/2015 right jainism, left jainism - irrirated actinic keratosis Full Exam - [...] inspection of skin Location: face 07/06/2015 right jainism, forehead, l eft jainism - irrirated actinic keratosis Full Exam - [...] CPT-4: J3301 07/08/2018 THER/PROPH/DIAG INJ SC/IM CPT-4: 93161 07/08/2018 THER/PROPH/DIAG INJ SC/IM CPT-4: 55621 02/28/2018 ROCEPHIN, PER 250 MG CPT-4: J0696 02/28/2018 THER/PROPH/DIAG INJ SC/IM CPT-4: 07767 02/26/2018 TRIAMCINOLONE ACET I [place] NOS CPT-4: J3301 02/26/2018 PPPS, SUBSEQ VISIT CPT- 4: G0439 2017 TRIAMCINOLONE ACET I [place] NOS CPT-4: J3301 06/29/2017 THER/PROPH/DIAG INJ SC/IM CPT-4: 12991 02/06/2017 ROCEPHIN, PER 250 MG CPT-4: J0696 02/06/2017 ROCEPHIN, PER 250 MG CPT-4: J0696 09/27/2016 TRIAMCINOLONE ACET I [place] NOS CPT-4: J3301 09/27/2016 THER/PROPH/DIAG INJ SC/IM CPT-4: 47277 09/27/2016 DESTRUCT PREMALG LESION CPT-4: 47334 10/14/2015 DESTRUCT PREMALG LESION CPT-4: 26903 07/20/2015 DESTRUCT PREMALG LESION CPT-4: 76735 07/06/2015 DESTRUCT PREMALG LES 2-14 CPT-4: 78717 07/06/2015 TRIAMCINOLONE ACET I [place] NOS CPT-4: J3301 02/02/2015 Vital Signs Date Vital 11/01/2018 Blood Pressure 1: 120/70 Code: 8480-6 Heart Rate 1: 72 bpm Height: SpO2: 98% Weight: 07/08/2018 Blood Pressure 1: 134/64 Code: 8480-6 BMI: 30.6 Code: 04222-2 Heart Rate 1: 79 bpm Height: 5'8" SpO2: 98% Weight: 201 lbs 06/04/2018 Blood Pressure 1: 130/62 Code: 8480-6 BMI: 30.6 Code: 61016-0 Heart Rate 1: 88 bpm Height: 5'8" SpO2: 97% Weight: 201 lbs 04/23/2018 Blood Pressure 1: 130/72 Code: 8480-6 BMI: 30.1 Code: 20476-1 Heart Rate 1: 74 bpm Height: 5'8" SpO2: 97% Weight: 198 lbs 02/28/2018 Blood Pressure 1: 124/72 Code: 8480-6 BMI: 30.0 Code: 96721-5 Heart Rate 1: 69 bpm Height: 5'8" SpO2: 97% Temperature: 36.6 (C ) / 97.8 (F) Weight: 197 lbs 02/19/2018 Blood Pressure 1: 128/76 Code: 8480-6 BMI: 30.0 Code: 86649-9 Heart Rate 1: 66 bpm Height: 5'8" SpO2: 97% Weight: 197 lbs 11/09/2017 Blood Pressure 1: 130/74 Code: 8480-6 BMI: 29.3 Code: 82052-5 Heart Rate 1: 81 bpm Height: 5'8" SpO2: 98% Temperature: 36.6 (C ) / 97.9 (F) Weight: 193 lbs 10/22/2017 Blood Pressure 1: 132/82 Code: 8480-6 BMI: 29.0 Code: 93980-9 Heart Rate 1: 80 bpm Height: 5'8" SpO2: 98% Weight: 191 lbs 2017 Blood Pressure 1: 142/68 Code: 8480-6 BMI: 28.7 Code: 72833-1 Heart Rate 1: 62 bpm Height: 5'8" SpO2: 98% Waist Measure (cm): 102 cm Weight: 189 lbs 07/23/2017 Blood Pressure 1: 138/84 Code: 8480-6 BMI: 29.0 Code: 05139-2 Heart Rate 1: 69 bpm Height: 5'8" SpO2: 98% Weight: 191 lbs 07/09/2017 Blood Pressure 1: 120/82 Code: 8480-6 BMI: 29.2 Code: 70001-4 Heart Rate 1: 80 bpm Height: 5'8" SpO2: 98% Weight: 192 lbs 06/29/2017 Blood Pressure 1: 140/82 Code: 8480-6 BMI: 29.5 Code: 79787-2 Heart Rate 1: 83 bpm Height: 5'8" SpO2: 98% Weight: 194 lbs 04/23/2017 Blood Pressure 1: 132/74 Code: 8480-6 BMI: 28.4 Code: 03614-6 Heart Rate 1: 78 bpm Height: 5'8" SpO2: 97% Weight: 187 lbs 04/10/2017 Blood Pressure 1: 126/68 Code: 8480-6 BMI: 29.5 Code: 26822-7 Heart Rate 1: 68 bpm Height: 5'8" SpO2: 92% Temperature: 37.5 (C ) / 99.5 (F) Weight: 194 lbs 03/29/2017 Blood Pressure 1: 116/76 Code: 8480-6 BMI: 29.6 Code: 54519-9 Heart Rate 1: 61 bpm Height: 5'8" SpO2: 98% Weight: 195 lbs 02/06/2017 Blood Pressure 1: 130/74 Code: 8480-6 BMI: 30.4 Code: 75295-4 Heart Rate 1: 71 bpm Height: 5'8" SpO2: 98% Weight: 200 lbs 11/06/2016 Blood Pressure 1: 140/74 Code: 8480-6 BMI: 29.5 Code: 13208-6 Heart Rate 1: 76 bpm Height: 5'8" SpO2: 96% Weight: 194 lbs 09/27/2016 Blood Pressure 1: 138/78 Code: 8480-6 BMI: 29.6 Code: 46281-3 Heart Rate 1: 68 bpm Height: 5'8" SpO2: 97% Weight: 195 lbs 03/21/2016 Blood Pressure 1: 148/82 Code: 8480-6 BMI: 30.6 Code: 40488-8 Heart Rate 1: 67 bpm Height: 5'8" SpO2: 98% Weight: 201 lbs 02/01/2016 Blood Pressure 1: 128/86 Code: 8480-6 BMI: 30.3 Code: 06206-4 Heart Rate 1: 84 bpm Height: 5'8" SpO2: 96% Weight: 199 lbs 11/23/2015 Blood Pressure 1: 132/76 Code: 8480-6 BMI: 30.4 Code: 86842-7 Heart Rate 1: 81 bpm Height: 5'8" SpO2: 98% Weight: 200 lbs 10/14/2015 Blood Pressure 1: 120/80 Code: 8480-6 BMI: 30.4 Code: 91217-4 Heart Rate 1: 87 bpm Height: 5'8" SpO2: 97% Weight: 200 lbs 07/20/2015 Blood Pressure 1: 132/84 Code: 8480-6 BMI: 31.0 Code: 46244-9 Heart Rate 1: 78 bpm Height: 5'8" SpO2: 96% Weight: 204 lbs 07/06/2015 Blood Pressure 1: 130/78 Code: 8480-6 BMI: 31.0 Code: 12686-2 Heart Rate 1: 80 bpm Height: 5'8" SpO2: 98% Weight: 204 lbs 03/29/2015 Blood Pressure 1: 132/82 Code: 8480-6 BMI: 29.6 Code: 71143-8 Heart Rate 1: 76 bpm Height: 5'8" SpO2: 96% Weight: 195 lbs 03/08/2015 Blood Pressure 1: 126/84 Code: 8480-6 BMI: 30.2 Code: 70497-1 Heart Rate 1: 101 bpm Height: 5'8" SpO2: 98% Weight: 198 lbs 8 oz 02/02/2015 Blood Pressure 1: 132/86 Code: 8480-6 Heart Rate 1: 86 bpm SpO2: 98% Temperature: 36.6 (C ) / 97.8 (F) Weight: 198 lbs 09/22/2014 Blood Pressure 1: 128/80 Code: 8480-6 BMI: 29.3 Code: 69281-2 Heart Rate 1: 85 bpm Height: 5'8" SpO2: 98% Weight: 193 lbs Functional Status No Functional Status data History of Present Illness Symptom Name Status Resu lt Effective Date Notes _ pneumonia 11/01/2018 None Quality acute illness [...] Encounters Encounter Performer Loca tion Codes Date 09050 EST. PATIENT, LEVEL V Diagnosis: Muscle weakness (generalized)[ICD10: M62.81] Diagnosis: Rash and other nonspecific skin eruption[ICD10: R21] Diagnosis: Other hemorrhoids[ICD10: K64.8] Diagnosis: Hypo-osmolality and hyponatremia[ICD10: E87.1] Diagnosis: Other emphysema[ICD10: J43.8] Diagnosis: Paroxysmal atrial fibrillation[ICD10: I48.0] Diagnosis: Encounter for follow-up examination after completed treatment for conditions other than malignant neoplasm[ICD10: Z09] Diagnosis: Essential (primary) hypertension[ICD10: I10] [facility] CPT-4: 51407 11/01/2018 49562 EST. PATIENT, LEVEL IV Diagnosis: Other acute sinusitis[ICD10: J01.80] Diagnosis: Other allergic rhinitis[ICD10: J30.89] Diagnosis: Other mucopurulent conjunctivitis, right eye[ICD10: H10.021] [facility] CPT-4: 58163 07/08/2018 78118 EST. PATIENT, LEVEL III Diagnosis: Cellulitis of right upper limb[ICD10: L03.113] Sandra Parsons MD, [facility] CPT-4: 87169 06/04/2018 ([id number]) 60489 EST. P ATIENT, LEVEL IV Diagnosis: Essential (primary) hypertension[ICD10: I10] Diagnosis: Chronic atrial fibrillation[ICD10: I48.2] Diagnosis: Mixed hyperlipidemia[ICD10: E78.2] Steffany Parsons MD, [facility] CPT- 4: 98497 04/23/2018 21280 EST. PATIENT, LEVEL IV Diagnosis: Other acute sinusitis[ICD10: J01.80] Diagnosis: Other allergic rhinitis[ICD10: J30.89] Sandra Parsons MD, [facility] CPT-4: 39188 02/28/2018 66506 EST. PATIENT, LEVEL IV Diagnosis: Other acute sinusitis[ICD10: J01.80] Diagnosis: Other allergic rhinitis[ICD10: J30.89] Sandra Parsons MD, [facility] CPT-4: 65384 02/19/2018 28043 EST. PATIENT, LEVEL III Diagnosis: Acute laryngopharyngitis[ICD10: J06.0] Diagnosis: Other allergic rhinitis[ICD10: J30.89] Sandra Parsons MD, [facility] CPT-4: 31607 11/09/2017 ([id number]) 50709 EST. P ATIENT, LEVEL IV Diagnosis: Essential (primary) hypertension[ICD10: I10] Diagnosis: Chronic atrial fibrillation[ICD10: I48.2] Steffany Parsons MD, [facility] CPT-4: 34033 10/22/2017 ([id number]) 66011 EST. P ATIENT, LEVEL IV Diagnosis: Essential (primary) hypertension[ICD10: I10] Diagnosis: Chronic atrial fibrillation[ICD10: I48.2] Diagnosis: Cough[ICD10: R05] Steffany Parsons MD, [facility] CPT-4: 73003 07/23/2017 ([id number]) 17205 EST. P ATIENT, LEVEL III Diagnosis: Cough[ICD10: R05] Diagnosis: Other allergic rhinitis[ICD10: J30.89] Diagnosis: Chronic obstructive pulmonary disease with (acute) exacerbation[ICD10: J44.1] Lucrecia Parsons MD, [facility] CPT-4: 57655 07/09/2017 ([id number]) 14228 EST. P ATIENT, LEVEL III Diagnosis: Cough[ICD10: R05] Diagnosis: Other allergic rhinitis[ICD10: J30.89] Diagnosis: Chronic obstructive pulmonary disease with (acute) exacerbation[ICD10: J44.1] Lucrecia Parsons MD, [facility] CPT-4: 51406 06/29/2017 ([id number]) 24640 EST. P ATIENT, LEVEL III Diagnosis: Essential (primary) hypertension[ICD10: I10] Diagnosis: Cough[ICD10: R05] Steffany Parsons MD, [facility] CPT-4: 65700 04/23/2017 ([id number]) 81797 EST. P ATIENT, LEVEL IV Diagnosis: Hemoptysis[ICD10: R04.2] Diagnosis: Essential (primary) hypertension[ICD10: I10] Diagnosis: Chronic obstructive pulmonary disease with acute lower respiratory infection[ICD10: J44.0] Steffany Parsons MD, [facility] CPT-4: 15806 04/10/2017 02135 EST. PATIENT, LEVEL III Diagnosis: Acute laryngopharyngitis[ICD10: J06.0] Diagnosis: Other allergic rhinitis[ICD10: J30.89] Sandra Parsons MD, [facility] CPT-4: 97412 03/29/2017 ([id number]) 14745 EST. P ATIENT, LEVEL III Diagnosis: Pneumonia due to Mycoplasma pneumoniae[ICD10: J15.7] Diagnosis: Cough[ICD10: R05] Diagnosis: Other chest pain[ICD10: R07.89] Steffany Parsons MD, [facility] CPT-4: 06654 02/06/2017 33169 EST. PATIENT, LEVEL IV Diagnosis: Cough[ICD10: R05] Diagnosis: Shortness of breath[ICD10: R06.02] Diagnosis: Gastro-esophageal reflux disease without esophagitis[ICD10: K21.9] Sandra Parsons MD, [facility] CPT-4: 20613 11/06/2016 21428 EST. PATIENT, LEVEL IV Diagnosis: Other allergic rhinitis[ICD10: J30.89] Diagnosis: Acute bronchitis due to other specified organisms[ICD10: J20.8] Sandra Parsons MD, [facility] CPT-4: 64557 09/27/2016 ([id number]) 04088 EST. P ATIENT, LEVEL IV Diagnosis: Essential (primary) hypertension[ICD10: I10] Diagnosis: Chronic atrial fibrillation[ICD10: I48.2] Diagnosis: Encounter for therapeutic drug level monitoring[ICD10: Z51.81] Steffany Parsons MD, [facility] CPT-4: 78576 03/21/2016 ([id number]) 54526 EST. 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 P ATIENT, LEVEL III Diagnosis: Allergic rhinitis due to pollen[ICD10: J30.1] Diagnosis: Actinic keratosis[ICD10: L57.0] Lucrecia Parsons MD, [facility] CPT- 4: 48636 10/14/2015 ([id number]) 37397 EST. P ATIENT, LEVEL IV Diagnosis: Essential (primary) hypertension[ICD10: I10] Diagnosis: Chronic atrial fibrillation[ICD10: I48.2] Steffany Parsons MD, [facility] CPT-4: 63229 07/06/2015 44414 EST. PATIENT, LEVEL III Diagnosis: Essential (primary) hypertension[ICD10: I10] Diagnosis: Chronic atrial fibrillation[ICD10: I48.2] Diagnosis: Shortness of breath[ICD10: R06.02] Diagnosis: Melena[ICD10: K92.1] Sandra Parsons MD, [facility] CPT-4: 41112 03/29/2015 ([id number]) 51345 EST. P ATIENT, LEVEL IV Diagnosis: Essential (primary) hypertension[ICD10: I10] Diagnosis: Chronic atrial fibrillation[ICD10: I48.2] Diagnosis: Cough[ICD10: R05] [facility] CPT-4: 54874 03/08/2015 ([id number]) 43774 EST. P ATIENT, LEVEL III Diagnosis: Other seasonal allergic rhinitis[ICD10: J30.2] Diagnosis: Other lesions of oral mucosa[ICD10: K13.79] [facility] CPT-4: 86258 02/02/2015 ([id number]) OFFICE FLORI JIMÉNEZ - LEVEL 4 Diagnosis: ESSENTIAL HYPERTENSION[ICD9: 401.9] Diagnosis: HYPERLIPIDEMIA[ICD9: 272.4] Diagnosis: ACTINIC KERATOSIS[ICD9: 702.0] Steffany Parsons MD, [facility] CPT-4: 07693 09/22/2014 Plan of Care Planned Activity Notes C odes Status Date Visit Plan: Hospital follow up -pul monary hemorrhage with pneumonia-continue with oxygen at 2 liters -keep appt with Dr Mijares as scheduled -continue breathing treatments as ordered Generalized weakness -due to prolonged hospitalization -he is doing PT/OT at [facility] -he did stand for 10 seconds twice [...] Summary Completed 11/01/2018 Appointment: Steffany Parsons WPtel: [address] [place], [place] [address] (15 min) Moderate 10/22/2018 Appointment: Steffany Parsons WPtel: [address] [place], [place] [address] [place] (15 min) Moderate 09/30/2018 Appointment: [phone] [facility] ([facility] min) Moderate 09/19/2018 Visit Plan: Sinusitis [...] daily. 07/08/2018 Appointment: [phone] [facility] (15 min) Moderate 07/08/2018 Patient Education: [...] discharge. 06/04/2018 Appointment: [phone] [facility] (30 min) Complex 06/04/2018 Patient [...] time. 04/23/2018 Appointment: Steffany Parsons WPtel: [phone] [facility] (15 min) Moderate 04/23/2018 Patient Education: [...] spray. 02/28/2018 Appointment: Sandra Tim WPtel: [phone] [facility] (15 min) Moderate 02/28/2018 Patient [...] allergy spray. 02/19/2018 Appointment: Sandra Tim WPtel: [facility] (15 min) Moderate 02/19/2018 Patient Education: [...] allergy spray. 11/09/2017 Appointment: Sandra Tim WPtel: [facility] (15 min) Moderate 11/09/2017 Patient [...] 10/22/2017 Appointment: Steffany Parsons WPtel: [phone] [facility] (15 min) Moderate 10/22/2017 Patient Education: Patient Medication Summary Completed 10/22/2017 Visit Plan: Medicare Exam - today praneeth e discussed the patients past history, immunizations, [...] spray) 07/23/2017 Appointment: [facility]ons [facility]Ptel[facility] [phone] [facility] (15 min) Moderate 07/23/2017 Patient Education: Patient Medication Summary Completed 07/23/2017 Visit Plan: COPD EXACERBATION - AIR TESTER D is a chronic problem for this [...] acute changes. 07/09/2017 Appointment: Lucrecia Yeager WPtel: [facility]5 [phone] (30 min) Complex 07/09/2017 Patient [...] acute changes. 06/29/2017 Appointment: Lucrecia Yeager WPtel: [facility]5 [phone] (15 min) Moderate 06/29/2017 Patient Education: Patient Medication Summary Completed 06/29/2017 Appointment: Steffany Parsons WPtel: [facility]5 [facility] (15 min) Moderate 04/30/2017 Visit Plan: Hypertension [...] breathing treatments. 04/23/2017 Appointment: Steffany Parsons WPtel: [address] [place], [place] [address] (15 min) Moderate 04/23/2017 Patient Education: Patient Medication Summary Completed 04/23/2017 Visit Plan: Hemoptysis and COPD exa cerbation - continue with antibiotics, rx for antifungal tablet and suspension. chest xray ordered, monitor symptoms. Pt to stop aspirin x 1 week, continue with eliquis. call if s ymptoms are not improving. rx for phenergan with codeine. 04/10/2017 Appointment: Steffany Parsons WPtel: [facility]5 [facility]66[facility] (15 min) Moderate 04/10/2017 [...] allergy spray. 03/29/2017 Appointment: Sandra Tim WPtel: [facility]7 [facility]66[facility] (15 min) Moderate 03/29/2017 Patient Education: Patient Medication Summary Completed 03/29/2017 Visit Plan: Pneumonia - Pt has been diagnosed with pneumonia by physical exam. A chest xray has been ordered as have antibiotics. The pt is aware of the diagnosis and the need for acute treatment of this illness. Cough - rx for promethazine/codeine syrup for cough. 02/06/2017 Appointment: Steffany Parsons WPtel: [facility]8 [facility] (15 min) Moderate 02/06/2017 Patient Education: [...] not improving. 11/06/2016 Appointment: Sandra Tim WPtel: [facility]3 [facility]66[facility] (15 min) Moderate 11/06/2016 Patient [...] acutely worsen. 09/27/2016 Appointment: Sandra Tim WPtel: [facility] (30 min) Complex 09/27/2016 Patient Education: Patient [...] becoming uncontrolled. 03/21/2016 Appointment: Steffany Parsons WPtel: [facility]0 [facility] (15 min) Moderate 03/21/2016 Patient Education: Patient Medication Summary Completed 03/21/2016 Patient Education: Obesity Completed 03/21/2016 Visit Plan: Diarrhea-recent abx use -check stool for cdiff- increase probiotic to twice daily-bland diet advance as tolerated-call if symptoms do not resolve or if any worse. Patient verbalized understanding of pl an. 02/01/2016 Appointment: Lucrecia Yeager WPtel: [facility]5 [address] (15 min) Moderate 02/01/2016 Patient Education: Patient Medication Summary Completed 02/01/2016 Patient Education: Obesity Completed 02/01/2016 Referral: Alexi Honeycutt [address] Info faxed Completed 11/27/2015 Visit Plan: [...] Summary Completed 11/23/2015 Appointment: Steffany Parsons WPtel: [facility] [address] (15 min) Moderate 11/15/2015 Visit Plan: [...] not heal 10/14/2015 Appointment: Lucrecia Yeager WPtel: [facility]9 [address] (15 min) Moderate 10/14/2015 Patient Education: Patient [...] acute concerns. 07/20/2015 Appointment: Lucrecia Yeager WPtel: [facility]5 [phone] [place] [address] (30 min) Complex 07/20/2015 Patient Education: Patient [...] acute concerns. 07/06/2015 Appointment: Steffany Parsons WPtel: [facility]6 [facility] (15 min) Moderate 07/06/2015 Patient Education: [...] - pt has an upcoming appointment with academic support specialist to possibly have an ablation [...] Patient Education: Hypertension Completed 03/08/2015 [facility] Ref[facility] Completed 02/13/2015 Visit Plan: Allergies [...] 02/02/2015 Care Plan: Referral Order SNOMED-CT : [id number] Ordered 02/02/2015 Visit Plan: Hypertension - well [...] not improving. 09/22/2014 Appointment: Steffany Parsons WPtel: [facility]5 [facility] [place] ([place] New Patient 09/22/2014 Patient Education: Patient Medication Summary Completed 09/22/2014 Patient Education: Hypertension Completed 09/22/2014 Ref[facility]: [facility] Referral Initiated Instructions Comment calmoseptine cream t o buttock restart hemorrhoid cream mupirocin to left index and pinky finger . Hospital follow up -pulmonary hemorrha ge with pneumonia-continue with oxygen at 2 liters -keep appt with Dr Mijares as scheduled -continue breathing treatments as ordered Generalized weakness -due to prolonged hospitalization -he is doing PT/OT at [facility] -he did stand for 10 seconds twice this week -continue with therapy Rash -left index and pinky finger -rx for mupirocin ointment until healed Hemorrhoids -restart hemorrhoid cream Low sodium -gatorade 8oz BID and repeat labs in 2 weeks Afib -eliquis stopped in hospital due to hemorrhage -now on coumadin -monitor closely HTN- controlled -no changes Mucinex - take twice daily with 16 [...] - pt has an upcoming appointment with academic support specialist to possibly have an ablation [...] monitor for acute changes. . Hemoptysis and AIR TESTER D exacerbation - continue with antibiotics, rx for antifungal tablet and suspension. chest xray ordered, monitor symptoms. Pt to stop aspirin x 1 week, continue with eliquis. call if symptoms are not improving. rx for phenergan with codeine. Steroid shot today stop the keflex and start the doxycycline take a probiotic (culturelle, Pencil You In, or generic) twice a day while on [...] monitor for acute changes. CHECK STOOL FOR CDI FF INCREASE PROBIOTIC TO TWICE DAILY . Diarrhea-recent abx use-check stool fo r cdiff-increase probiotic to twice daily-bland diet advance as tolerated-call if symptoms do not resolve or if any worse. Patient verbalized understanding of plan. . Medicare Exam - to day we [...]
--- OUTSIDE RECORDS SUMMARY | 2019-07-22 16:21 | XMS REPORT | Continuity of Care Document ---
Author Organization Unknown Address Unknown Phone Unavailable Allergies Active Description Code Type Severity Reaction Onset Reported/Identified Relationship to Patient Clinical Status Yes NKANo Known Allergies NKA Miscellaneous Allergy Unknown N/A 03/24/2015 Yes No Known Drug Allergies [id number] Drug Allergy Unknown N/A 12/08/2015 Yes montelukast [id number] Drug Aller gy Unknown N/A 06/08/2016 Yes Sulfa (Sulfonamide Antibiotics) [id number] Drug Allergy Unknown N/A 019 Medications There is no data. 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 10/11/2011 Ot 433.10 CAR OTID ARTERY OCCLUSION W O CEREBRAL IN 10/11/2011 Ot 443.9 HERO PH VASCULAR DIS NOS 10/11/2011 Ot 496 CHR AI RWAY OBSTRUCT NEC 10/11/2011 Ot 574.00 CHO LELITH W AC CHOLECYST 10/11/2011 Ot 600.01 HYP ERTROPHY (BENIGN) OF PROSTATE W URINA 10/11/2011 Ot 788.20 RET ENTION OF URINE NOS 10/11/2011 Ot V45.01 CAR DIAC PACEMAKER IN SITU 10/21/2011 Ot 401.9 HYPE RTENSION NOS 10/21/2011 Ot 414.00 COR ON ATHEROSCLER NOS TYPE VESSEL, NATIV 10/21/2011 Ot 428.0 MIMI ESTIVE HEART FAILURE NOS 10/21/2011 Ot 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 10/21/2011 Ot 458.0 ORTH OSTATIC HYPOTENSION 10/21/2011 Ot 600.00 HYP ERTROPHY (BENIGN) OF PROSTATE W/O URI 10/21/2011 Ot E947.9 ADV EFF MEDICINAL NOS 10/21/2011 Ot V15.82 HIS TORY OF TOBACCO USE 10/21/2011 Ot V45.01 CAR DIAC PACEMAKER IN SITU 10/21/2011 Ot V45.81 AOR TOCORONARY BYPASS 12/18/2011 Ot 272.4 HYPE RLIPIDEMIA NEC/NOS 12/18/2011 Ot 401.9 HYPE RTENSION NOS 12/18/2011 Ot 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 12/18/2011 Ot 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 [place] 12/18/2011 Ot 426.10 ATR IOVENT BLOCK NOS 12/18/2011 Ot 427.31 ATR IAL FIBRILLATION 12/18/2011 Ot 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 12/18/2011 Ot 433.10 CAR OTID ARTERY OCCLUSION W O CEREBRAL IN 12/18/2011 Ot V45.81 AOR TOCORONARY BYPASS 12/18/2011 Ot V53.31 FIT TING AND ADJUSTMENT OF CARDIAC PACEMA 12/18/2011 Ot V58.61 ANTICOAGULANTS,LT,CURRENT USE 12/18/2011 Ot V58.66 KILO G-TERM (CURRENT) USE OF ASPIRIN 12/18/2011 Ot V58.69 OTH MED,LT,CURRENT USE 03/01/2012 Ot 558.9 SHELLIE NF GASTROENTERIT NEC 03/01/2012 Ot V12.72 PER YOUNG HISTORY OF COLONIC POLYPS 12/31/2013 VERNON STEPHENSON FACC, TOSHA FACP CCDS Ot 272.4 HYPERLIPIDEMIA NEC/NOS 12/31/2013 VERNON STEPHENSON FACC, TOSHA FACP CCDS Ot 401.9 HYPERTENSION NOS 12/31/2013 VERNON STEPHENSON FACC, TOSHA FACP CCDS Ot 414.01 CORONARY ATHEROSCLEROSIS OF [place] CORON 12/31/2013 VERNON STEPHENSON FACC, TOSHA FACP CCDS Ot 414.02 CORON ATHEROSCLEROSIS AUTOLOG VEIN BYPAS 12/31/2013 VERNON STEPHENSON FACC, TOSHA FACP CCDS Ot 414.2 CHRONIC TOTAL OCCLUSION OF CORONARY [place] 12/31/2013 VERNON STEPHENSON FACC, TOSHA FACP CCDS Ot 414.4 CORONARY ATHEROSCLEROSIS DUE TO [place] 12/31/2013 VERNON STEPHENSON FACC, ALI FACP CCDS Ot 427.31 ATRIAL FIBRILLATION 12/31/2013 VERNON STEPHENSON FACC, ALI FACP CCDS Ot 427.32 ATRIAL FLUTTER 12/31/2013 VERNON STEPHENSON FACC, ALI FACP CCDS Ot 428.0 CONGESTIVE HEART FAILURE NOS 12/31/2013 VERNON STEPHENSON FACC, ALI FACP CCDS Ot 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 12/31/2013 VERNON STEPHENSON FACC, ALI FACP CCDS Ot V15.82 HISTORY OF TOBACCO USE 12/31/2013 VERNON STEPHENSON FACC, TOSHA FACP CCDS Ot V45.01 CARDIAC PACEMAKER IN SITU 12/31/2013 VERNON STEPHENSON FACC, ALI FACP CCDS Ot V45.81 AORTOCORONARY BYPASS 12/31/2013 VERNON STEPHENSON FACC, ALI FACP CCDS Ot V58.69 OT MED,LT,CURRENT USE 02/16/2014 VERNON STEPHENSON FACC, ALI FACP CCDS Ot V45.82 02/16/2014 VERNON STEPHENSON FACC, ALI FACP CCDS Ot V57.89 03/20/2014 VERNON STEPHENSON FACC, ALI FACP CCDS Ot V45.82 PERCUTANEOUS TRANSLUM CORON ANGIOPLASTY 03/20/2014 VERNON STEPHENSON FACC, ALI FACP CCDS Ot V57.89 REHABILITATION PROC NEC 10/16/2014 ANASTASIA GREENFIELD APRN Ot 786.2 03/18/2015 Ot 414.00 03/18/2015 Ot 786.09 03/18/2015 Ot 786.50 03/18/2015 Ot V72.84 03/18/2015 JUNE STEPHENSON, LATASHA Sotelo Ot 786.05 03/18/2015 VIET CHRISTIAN L PIN DRAFTER Ot 401.9 03/18/2015 GINO VIET L PIN DRAFTER Ot 414.00 03/18/2015 BAICRISTOBAL VIET L PIN DRAFTER Ot 427.31 03/18/2015 VIET CHRISTIAN L PIN DRAFTER Ot 428.33 03/18/2015 VIET CHRISTIAN L PIN DRAFTER Ot 780.79 03/18/2015 YURI CHRISTIANHER L PIN DRAFTER Ot V45.81 03/18/2015 ANASTASIA GREENFIELD APRN Ot 786.2 03/22/2015 MORGAN ZIEGLER MD, V Ot E78.5 HYPERLIPIDEMIA, UNSPECIFIED 03/22/2015 MORGAN ZIEGLER MD, V Ot I1 0 ESSENTIAL (PRIMARY) HYPERTENSION 03/22/2015 MORGAN ZIEGLER MD, V Ot I25.10 ATHSCL HEART DISEASE OF [place] CORONARY 03/22/2015 MORGAN ZIEGLER MD, V Ot I25.82 CHRONIC TOTAL OCCLUSION OF CORONARY [place] 03/22/2015 MORGAN ZIEGLER MD, V Ot I48.0 PAROXYSMAL ATRIAL FIBRILLATION 03/22/2015 MORGAN ZIEGLER MD, V Ot I50.32 CHRONIC DIASTOLIC (CONGESTIVE) HEART JEREMY 03/22/2015 MORGAN ZIEGLER MD, V Ot R06.1 STRIDOR 03/22/2015 MORGAN ZIEGLER MD, V Ot Z79.01 CORRECTION (CURRENT) USE OF ANTICOAGULANT 03/22/2015 MORGAN ZIEGLER MD, V Ot Z79.899 OTHER ENTRY LEVEL ACCOUNT EXECUTIVE (CURRENT) DRUG THERAPY 03/22/2015 MORGAN ZIEGLER MD, V Ot Z95.0 PRESENCE OF CARDIAC PACEMAKER 03/22/2015 MORGAN ZIEGLER MD, V Ot Z95.1 PRESENCE OF AORTOCORONARY BYPASS GRAFT 03/22/2015 MORGAN ZIEGLER MD, V Ot Z98.61 CORONARY ANGIOPLASTY STATUS 03/25/2015 SILVANO JAIN MD R Ot E78. 5 HYPERLIPIDEMIA, UNSPECIFIED 03/25/2015 SILVANO JAIN MD R Ot I10 ESSENTIAL (PRIMARY) HYPERTENSION 03/25/2015 SILVANO JAIN MD R Ot I25. 10 ATHSCL HEART DISEASE OF [place] CORONARY 03/25/2015 SILVANO JAIN MD R Ot I48. 2 CHRONIC ATRIAL FIBRILLATION 03/25/2015 SILVANO JAIN MD R Ot I50. 32 CHRONIC DIASTOLIC (CONGESTIVE) HEART JEREMY 03/25/2015 SILVANO JAIN MD R Ot Z95. 0 PRESENCE OF CARDIAC PACEMAKER 03/25/2015 SILVANO JAIN MD R Ot Z95. 1 PRESENCE OF AORTOCORONARY BYPASS GRAFT 04/06/2015 VIET CHRISTIAN Ot R06.09 04/29/2015 JUAN HESS DO Ot G47. 33 OBSTRUCTIVE SLEEP APNEA (ADULT) (PEDIATR 05/12/2015 DESHAWN DO, JUAN M Ot G47. 33 OBSTRUCTIVE SLEEP APNEA (ADULT) (PEDIATR 05/18/2015 KEO LANG BIOLOGICAL ENGINEER Ot G47.10 05/18/2015 KEO LANG BIOLOGICAL ENGINEER Ot R04.2 05/18/2015 KEO LANG E BIOLOGICAL ENGINEER Ot R06.00 05/19/2015 KEO LANG BIOLOGICAL ENGINEER Ot G47.10 05/19/2015 KEO LANG BIOLOGICAL ENGINEER Ot R04.2 05/19/2015 KEO LANG BIOLOGICAL ENGINEER Ot R06.00 12/08/2015 Ot 414.00 COR ON ATHEROSCLER NOS TYPE VESSEL, NATIV 12/08/2015 Ot 786.09 RES PIRATORY ABNORM NEC 12/08/[address] PAIN NOS 12/08/2015 Ot V72.84 EXA M PRE- OPERATIVE NOS 12/08/2015 JUNE STEPHENSON, LATASHA Sotelo Ot 786.05 SHORTNESS OF BREATH 12/08/2015 DUDLEYMA VIET L PIN DRAFTER Ot 401.9 HYPERTENSION NOS 12/08/2015 BAIMA VIET L PIN DRAFTER Ot 414.00 CORON ATHEROSCLER NOS TYPE VESSEL, NATIV 12/08/2015 BAIMA VIET L PIN DRAFTER Ot 427.31 ATRIAL FIBRILLATION 12/08/2015 BAIMA VIET L PIN DRAFTER Ot 428.33 ACUTE CHRONIC DIASTOLIC HRT FAILURE 12/08/2015 BAIMA VIET L PIN DRAFTER Ot 780.79 OTH MALAISE FATIGUE 12/08/2015 BAIMA VIET L PIN DRAFTER Ot V45.81 AORTOCORONARY BYPASS 12/08/2015 ANASTASIA GREENFIELD APRN Ot 786.2 COUGH 12/08/2015 GINO VIET L PIN DRAFTER Ot R06.09 OTHER FORMS OF DYSPNEA 12/08/2015 KEO LANG BIOLOGICAL ENGINEER Ot G47.10 HYPERSOMNIA, UNSPECIFIED 12/08/2015 KEO LANG BIOLOGICAL ENGINEER Ot R04.2 HEMOPTYSIS 12/08/2015 KEO LANG BIOLOGICAL ENGINEER Ot R06.00 DYSPNEA, UNSPECIFIED 12/08/2015 KEO LANG BIOLOGICAL ENGINEER Ot G47.10 HYPERSOMNIA, UNSPECIFIED 12/08/2015 KEO LANG BIOLOGICAL ENGINEER Ot R04.2 HEMOPTYSIS 12/08/2015 RICKEYKEO WINTERS APRN Ot R06.00 DYSPNEA, UNSPECIFIED 12/08/2015 SNEHA LYNN MD Ot L98 .9 DISORDER OF THE SKIN AND SUBCUTANEOUS TI 12/08/2015 SNEHA LYNN MD Ot Z01.810 ENCOUNTER FOR PREPROCEDURAL CARDIOVASCUL 12/08/2015 SNEHA LYNN MD Ot Z01.812 ENCOUNTER FOR PREPROCEDURAL LABORATORY E 12/08/2015 SNEHA LYNN MD Ot Z11 .2 ENCOUNTER FOR SCREENING FOR OTHER BACTER 12/09/2015 SNEHA LYNN MD Ot L98 .9 DISORDER OF THE SKIN AND SUBCUTANEOUS TI 12/09/2015 SNEHA LYNN MD Ot Z01.810 ENCOUNTER FOR PREPROCEDURAL CARDIOVASCUL 12/09/2015 SNEHA LYNN MD Ot Z01.812 ENCOUNTER FOR PREPROCEDURAL LABORATORY E 12/09/2015 SNEHA LYNN MD Ot Z11 .2 ENCOUNTER FOR SCREENING FOR OTHER BACTER 12/10/2015 SNEHA LYNN MD Ot L98 .9 DISORDER OF THE SKIN AND SUBCUTANEOUS TI 12/10/2015 SNEHA LYNN MD Ot Z01.810 ENCOUNTER FOR PREPROCEDURAL CARDIOVASCUL 12/10/2015 SNEHA LYNN MD Ot Z01.812 ENCOUNTER FOR PREPROCEDURAL LABORATORY E 12/10/2015 SNEHA LYNN MD Ot Z11 .2 ENCOUNTER FOR SCREENING FOR OTHER BACTER 12/17/2015 SNEHA LYNN MD Ot 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 12/17/2015 SNEHA LYNN MD Ot 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 [place] 12/22/2015 SNEHA LYNN MD Ot 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 12/22/2015 SNEHA LYNN MD Ot 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 [place] 04/03/[address] PAIN NOS 04/03/2016 Ot V72.84 EXA M PRE- OPERATIVE NOS 04/03/2016 LATASHA WATKINS MD Ot 786.05 SHORTNESS OF BREATH 04/03/2016 VIET CHRISTIAN PIN DRAFTER Ot 401.9 HYPERTENSION NOS 04/03/2016 VIET CHRISTIAN PIN DRAFTER Ot 414.00 CORON ATHEROSCLER NOS TYPE VESSEL, NATIV 04/03/2016 VIET CHRISTIAN PIN DRAFTER Ot 427.31 ATRIAL FIBRILLATION 04/03/2016 VIET CHRISTIAN PIN DRAFTER Ot 428.33 ACUTE CHRONIC DIASTOLIC HRT FAILURE 04/03/2016 VIET CHRISTIAN PIN DRAFTER Ot 780.79 OTH MALAISE FATIGUE 04/03/2016 VIET CHRISTIAN PIN DRAFTER Ot V45.81 AORTOCORONARY BYPASS 04/03/2016 ANASTASIA GREENFIELD APRN Ot 786.2 COUGH 04/03/2016 VIET CHRISTIAN PIN DRAFTER Ot R06.09 OTHER FORMS OF DYSPNEA 04/03/2016 RICKEYROBSON WINTERSINE Owen BIOLOGICAL ENGINEER Ot G47.10 HYPERSOMNIA, UNSPECIFIED 04/03/2016 RICKEY KEO E BIOLOGICAL ENGINEER Ot R04.2 HEMOPTYSIS 04/03/2016 RICKEYKEO WINTERS BIOLOGICAL ENGINEER Ot R06.00 DYSPNEA, UNSPECIFIED 04/03/2016 RICKEYROBSONKEO Owen BIOLOGICAL ENGINEER Ot G47.10 HYPERSOMNIA, UNSPECIFIED 04/03/2016 RICKEYROBSON WINTERSINE Owen BIOLOGICAL ENGINEER Ot R04.2 HEMOPTYSIS 04/03/2016 RICKEYKEO WINTERS BIOLOGICAL ENGINEER Ot R06.00 DYSPNEA, UNSPECIFIED 04/03/2016 VANDANA RIVERA CHAUNCEY K Ot I10 ESSENTIAL (PRIMARY) HYPERTENSION 04/03/2016 JORDAN ROSS DOA K Ot J06.9 ACUTE UPPER RESPIRATORY INFECTION, UNSPE 04/03/2016 CHAUNCEY ROSS DO Ot J20.9 ACUTE BRONCHITIS, UNSPECIFIED 04/03/2016 JORDAN ROSS DOA K Ot R05 COUGH 04/03/2016 JORDAN ROSS DOA Guillermo Ot Z79.82 CORRECTION (CURRENT) USE OF ASPIRIN 04/03/2016 CHAUNCEY ROSS DO Ot Z79.899 OTHER CORRECTION (CURRENT) DRUG THERAPY 04/03/2016 JORDAN ROSS DOA K Ot Z95.0 PRESENCE OF CARDIAC PACEMAKER 04/03/2016 JORDAN ROSS DOA K Ot Z95.1 PRESENCE OF AORTOCORONARY BYPASS GRAFT 04/03/2016 CHAUNCEY ROSS DO Ot Z95.5 PRESENCE OF CORONARY ANGIOPLASTY IMPLANT 04/05/2016 JORDAN ROSS DOA K Ot I10 ESSENTIAL (PRIMARY) HYPERTENSION 04/05/2016 JORDAN ROSS DOA K Ot J06.9 ACUTE UPPER RESPIRATORY INFECTION, UNSPE 04/05/2016 JORDAN ROSS DOA K Ot J20.9 ACUTE BRONCHITIS, UNSPECIFIED 04/05/2016 CHAUNCEY ROSS DO Ot R05 COUGH 04/05/2016 CHAUNCEY ROSS DO Ot Z79.82 CORRECTION (CURRENT) USE OF ASPIRIN 04/05/2016 CHAUNCEY ROSS DO Ot Z79.899 OTHER ENTRY LEVEL ACCOUNT EXECUTIVE (CURRENT) DRUG THERAPY 04/05/2016 CHAUNCEY ROSS DO Ot Z95.0 PRESENCE OF CARDIAC PACEMAKER 04/05/2016 CHAUNCEY ROSS DO Ot Z95.1 PRESENCE OF AORTOCORONARY BYPASS GRAFT 04/05/2016 CHAUNCEY ROSS DO Ot Z95.5 PRESENCE OF CORONARY ANGIOPLASTY IMPLANT 04/21/2016 KEO LANG BIOLOGICAL ENGINEER Ot G47.33 OBSTRUCTIVE SLEEP APNEA (ADULT) (PEDIATR 04/28/2016 KEO LANG BIOLOGICAL ENGINEER Ot G47.33 OBSTRUCTIVE SLEEP APNEA (ADULT) (PEDIATR 04/28/2016 KEO LANG BIOLOGICAL ENGINEER Ot G47.33 OBSTRUCTIVE SLEEP APNEA (ADULT) (PEDIATR 06/14/2016 DELMAN DO, MACARIO B Ot C43.5 9 MALIGNANT MELANOMA OF OTHER PART OF TRUN 06/20/2016 DELMAN DO, MACARIO B Ot C43.5 9 MALIGNANT MELANOMA OF OTHER PART OF TRUN 06/21/2016 DELMAN DO, MACARIO B Ot C43.5 9 MALIGNANT MELANOMA OF OTHER PART OF TRUN 06/21/2016 DELMAN DO, MACARIO B Ot C43.5 9 MALIGNANT MELANOMA OF OTHER PART OF TRUN 07/20/2016 KEO LANG BIOLOGICAL ENGINEER Ot G47.33 OBSTRUCTIVE SLEEP APNEA (ADULT) (PEDIATR 11/30/2016 FERDINAND TERRELL BIOLOGICAL ENGINEER Ot R0 5 COUGH 11/30/2016 FERDINAND TERRELL BIOLOGICAL ENGINEER Ot R06.02 SHORTNESS OF BREATH 11/30/2016 FERDINAND TERRELL BIOLOGICAL ENGINEER Ot Z95.0 PRESENCE OF CARDIAC PACEMAKER 11/30/2016 FERDINAND TERRELL BIOLOGICAL ENGINEER Ot Z95.1 PRESENCE OF AORTOCORONARY BYPASS GRAFT 03/01/2017 ERAN STEPHENSON, CODEY Bishop Ot J44.9 CHRONIC OBSTRUCTIVE PULMONARY DISEASE, U 04/13/2017 ERAN STEPHENSON, CODEY Bishop Ot B37.0 CANDIDAL STOMATITIS 04/13/2017 ERAN STEPHENSON, CODEY Bishop Ot E78.00 PURE HYPERCHOLESTEROLEMIA, UNSPECIFIED 04/13/2017 CODEY BARILLAS MD Ot G47.30 SLEEP APNEA, UNSPECIFIED 04/13/2017 CODEY BARILLAS MD Ot I08.3 COMB RHEUMATIC DISORD OF [place], AORTIC 04/13/2017 CODEY BARILLAS MD, Ot I1 0 ESSENTIAL (PRIMARY) HYPERTENSION 04/13/2017 CODEY BARILLAS MD, Ot I11.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 04/13/2017 CODEY BARILLAS MD Ot I25.10 ATHSCL HEART DISEASE OF [place] CORONARY 04/13/2017 CODEY BARILLAS MD Ot I44.39 OTHER ATRIOVENTRICULAR BLOCK 04/13/2017 CODEY BARILLAS MD Ot I48.2 CHRONIC ATRIAL FIBRILLATION 04/13/2017 CODEY BARILLAS MD Ot I48.92 UNSPECIFIED ATRIAL FLUTTER 04/13/2017 CODEY BARILLAS MD Ot I50.33 ACUTE ON CHRONIC DIASTOLIC (CONGESTIVE) 04/13/2017 CODEY BARILLAS MD Ot I65.29 OCCLUSION AND STENOSIS OF UNSPECIFIED CA 04/13/2017 CODEY BARILLAS MD Ot J18.9 PNEUMONIA, UNSPECIFIED ORGANISM 04/13/2017 CODEY BARILLAS MD, Ot 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 04/13/2017 CODEY BARILLAS MD Ot J44.1 CHRONIC OBSTRUCTIVE PULMONARY DISEASE W 04/13/2017 CODEY BARILLAS MD Ot K51.90 ULCERATIVE COLITIS, UNSPECIFIED, WITHOUT 04/13/2017 CODEY BARILLAS MD Ot R04.2 HEMOPTYSIS 04/13/2017 CODEY BARILLAS MD Ot R09.02 HYPOXEMIA 04/13/2017 CODEY BARILLAS MD Ot R73.01 IMPAIRED FASTING GLUCOSE 04/13/2017 CODEY BARILLAS MD Ot Z68.30 BODY MASS INDEX (BMI) 30.0-30.9, ADULT 04/13/2017 CODEY BARILLAS MD Ot Z79.01 CORRECTION (CURRENT) USE OF ANTICOAGULANT 04/13/2017 CODEY BARILLAS MD Ot Z85.820 PERSONAL HISTORY OF MALIGNANT MELANOMA O 04/13/2017 CODEY BARILLAS MD Ot Z86.010 PERSONAL HISTORY OF COLONIC POLYPS 04/13/2017 CODEY BARILLAS MD Ot Z87.19 PERSONAL HISTORY OF OTHER DISEASES OF TH 04/13/2017 CODEY BARILLAS MD Ot Z87.891 PERSONAL HISTORY OF NICOTINE DEPENDENCE 04/13/2017 CODEY BARILLAS MD Ot Z95.0 PRESENCE OF CARDIAC PACEMAKER 04/13/2017 CODEY BARILLAS MD Ot Z95.1 PRESENCE OF AORTOCORONARY BYPASS GRAFT 04/13/2017 CODEY BARILLAS MD Ot Z95.5 PRESENCE OF CORONARY ANGIOPLASTY IMPLANT 04/13/2017 CODEY BARILLAS MD Ot B37.0 CANDIDAL STOMATITIS 04/13/2017 CODEY BARILLAS MD Ot E78.00 PURE HYPERCHOLESTEROLEMIA, UNSPECIFIED 04/13/2017 CODEY BARILLAS MD Ot G47.30 SLEEP APNEA, UNSPECIFIED 04/13/2017 CODEY BARILLAS MD Ot I08.3 COMB RHEUMATIC DISORD OF [place], AORTIC 04/13/2017 CODEY BARILLAS MD Ot I1 0 ESSENTIAL (PRIMARY) HYPERTENSION 04/13/2017 CODEY BARILLAS MD Ot I11.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 04/13/2017 CODEY BARILLAS MD Ot I25.10 ATHSCL HEART DISEASE OF [place] CORONARY 04/13/2017 CODEY BARILLAS MD Ot I44.39 OTHER ATRIOVENTRICULAR BLOCK 04/13/2017 CODEY BARILLAS MD Ot I48.2 CHRONIC ATRIAL FIBRILLATION 04/13/2017 CODEY BARILLAS MD Ot I48.92 UNSPECIFIED ATRIAL FLUTTER 04/13/2017 CODEY BARILLAS MD Ot I50.33 ACUTE ON CHRONIC DIASTOLIC (CONGESTIVE) 04/13/2017 CODEY BARILLAS MD Ot I65.29 OCCLUSION AND STENOSIS OF UNSPECIFIED CA 04/13/2017 CODEY BARILLAS MD Ot J18.9 PNEUMONIA, UNSPECIFIED ORGANISM 04/13/2017 CODEY BARILLAS MD Ot 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 04/13/2017 CODEY BARILLAS MD, Ot J44.1 CHRONIC OBSTRUCTIVE PULMONARY DISEASE W 04/13/2017 CODEY BARILLAS MD Ot K51.90 ULCERATIVE COLITIS, UNSPECIFIED, WITHOUT 04/13/2017 CODEY BARILLAS MD Ot R04.2 HEMOPTYSIS 04/13/2017 CODEY BARILLAS MD Ot R09.02 HYPOXEMIA 04/13/2017 CODEY BARILLAS MD Ot R73.01 IMPAIRED FASTING GLUCOSE 04/13/2017 CODEY BARILLAS MD Ot Z68.30 BODY MASS INDEX (BMI) 30.0-30.9, ADULT 04/13/2017 CODEY BARILLAS MD Ot Z79.01 CORRECTION (CURRENT) USE OF ANTICOAGULANT 04/13/2017 CODEY BARILLAS MD Ot Z85.820 PERSONAL HISTORY OF MALIGNANT MELANOMA O 04/13/2017 CODEY BARILLAS MD Ot Z86.010 PERSONAL HISTORY OF COLONIC POLYPS 04/13/2017 CODEY BARILLAS MD Ot Z87.19 PERSONAL HISTORY OF OTHER DISEASES OF TH 04/13/2017 CODEY BARILLAS MD Ot Z87.891 PERSONAL HISTORY OF NICOTINE DEPENDENCE 04/13/2017 CODEY BARILLAS MD Ot Z95.0 PRESENCE OF CARDIAC PACEMAKER 04/13/2017 CODEY BARILLAS MD Ot Z95.1 PRESENCE OF AORTOCORONARY BYPASS GRAFT 04/13/2017 CODEY BARILLAS MD Ot Z95.5 PRESENCE OF CORONARY ANGIOPLASTY IMPLANT 04/13/2017 CODEY BARILLAS MD Ot B37.0 CANDIDAL STOMATITIS 04/13/2017 CODEY BARILLAS MD Ot E78.00 PURE HYPERCHOLESTEROLEMIA, UNSPECIFIED 04/13/2017 CODEY BARILLAS MD Ot G47.30 SLEEP APNEA, UNSPECIFIED 04/13/2017 CODEY BARILLAS MD Ot I08.3 COMB RHEUMATIC DISORD OF [place], AORTIC 04/13/2017 CODEY BARILLAS MD Ot I1 0 ESSENTIAL (PRIMARY) HYPERTENSION 04/13/2017 CODEY BARILLAS MD Ot I11.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 04/13/2017 CODEY BARILLAS MD Ot I25.10 ATHSCL HEART DISEASE OF [place] CORONARY 04/13/2017 CODEY BARILLAS MD Ot I44.39 OTHER ATRIOVENTRICULAR BLOCK 04/13/2017 CODEY BARILLAS MD Ot I48.2 CHRONIC ATRIAL FIBRILLATION 04/13/2017 CODEY BARILLAS MD Ot I48.92 UNSPECIFIED ATRIAL FLUTTER 04/13/2017 CODEY BARILLAS MD Ot I50.33 ACUTE ON CHRONIC DIASTOLIC (CONGESTIVE) 04/13/2017 CODEY BARILLAS MD Ot I65.29 OCCLUSION AND STENOSIS OF UNSPECIFIED CA 04/13/2017 CODEY BARILLAS MD Ot J18.9 PNEUMONIA, UNSPECIFIED ORGANISM 04/13/2017 CODEY BARILLAS MD Ot 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 04/13/2017 CODEY BARILLAS MD Ot J44.1 CHRONIC OBSTRUCTIVE PULMONARY DISEASE W 04/13/2017 CODEY BARILLAS MD Ot K51.90 ULCERATIVE COLITIS, UNSPECIFIED, WITHOUT 04/13/2017 CODEY BARILLAS MD Ot R04.2 HEMOPTYSIS 04/13/2017 CODEY BARILLAS MD Ot R09.02 HYPOXEMIA 04/13/2017 CODEY BARILLAS MD Ot R73.01 IMPAIRED FASTING GLUCOSE 04/13/2017 CODEY BARILLAS MD Ot Z68.30 BODY MASS INDEX (BMI) 30.0-30.9, ADULT 04/13/2017 CODEY BARILLAS MD Ot Z79.01 ENTRY LEVEL ACCOUNT EXECUTIVE (CURRENT) USE OF ANTICOAGULANT 04/13/2017 CODEY BARILLAS MD Ot Z85.820 PERSONAL HISTORY OF MALIGNANT MELANOMA O 04/13/2017 CODEY BARILLAS MD Ot Z86.010 PERSONAL HISTORY OF COLONIC POLYPS 04/13/2017 CODEY BARILLAS MD Ot Z87.19 PERSONAL HISTORY OF OTHER DISEASES OF TH 04/13/2017 CODEY BARILLAS MD Ot Z87.891 PERSONAL HISTORY OF NICOTINE DEPENDENCE 04/13/2017 CODEY BARILLAS MD Ot Z95.0 PRESENCE OF CARDIAC PACEMAKER 04/13/2017 CODEY BARILLAS MD Ot Z95.1 PRESENCE OF AORTOCORONARY BYPASS GRAFT 04/13/2017 CODEY BARILLAS MD Ot Z95.5 PRESENCE OF CORONARY ANGIOPLASTY IMPLANT 04/14/2017 CODEY BARILLAS MD Ot B37.0 CANDIDAL STOMATITIS 04/14/2017 CODEY BARILLAS MD Ot E78.00 PURE HYPERCHOLESTEROLEMIA, UNSPECIFIED 04/14/2017 CODEY BARILLAS MD Ot G47.30 SLEEP APNEA, UNSPECIFIED 04/14/2017 CODEY BARILLAS MD Ot I08.3 COMB RHEUMATIC DISORD OF [place], AORTIC 04/14/2017 CODEY BARILLAS MD Ot I1 0 ESSENTIAL (PRIMARY) HYPERTENSION 04/14/2017 CODEY BARILLAS MD Ot I11.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 04/14/2017 CODEY BARILLAS MD, Ot I25.10 ATHSCL HEART DISEASE OF [place] CORONARY 04/14/2017 CODEY BARILLAS MD Ot I44.39 OTHER ATRIOVENTRICULAR BLOCK 04/14/2017 CODEY BARILLAS MD Ot I48.2 CHRONIC ATRIAL FIBRILLATION 04/14/2017 CODEY BARILLAS MD, Ot I48.92 UNSPECIFIED ATRIAL FLUTTER 04/14/2017 CODEY BARILLAS MD, Ot I50.33 ACUTE ON CHRONIC DIASTOLIC (CONGESTIVE) 04/14/2017 CODEY BARILLAS MD Ot I65.29 OCCLUSION AND STENOSIS OF UNSPECIFIED CA 04/14/2017 CODEY BARILLAS MD, Ot J18.9 PNEUMONIA, UNSPECIFIED ORGANISM 04/14/2017 CODEY BARILLAS MD, Ot 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 04/14/2017 CODEY BARILLAS MD, Ot J44.1 CHRONIC OBSTRUCTIVE PULMONARY DISEASE W 04/14/2017 CODEY BARILLAS MD Ot K51.90 ULCERATIVE COLITIS, UNSPECIFIED, WITHOUT 04/14/2017 CODEY BARILLAS MD Ot R04.2 HEMOPTYSIS 04/14/2017 CODEY BARILLAS MD Ot R09.02 HYPOXEMIA 04/14/2017 CODEY BARILLAS MD Ot R73.01 IMPAIRED FASTING GLUCOSE 04/14/2017 CODEY BARILLAS MD Ot Z68.30 BODY MASS INDEX (BMI) 30.0-30.9, ADULT 04/14/2017 CODEY BARILLAS MD Ot Z79.01 CORRECTION (CURRENT) USE OF ANTICOAGULANT 04/14/2017 CODEY BARILLAS MD Ot Z85.820 PERSONAL HISTORY OF MALIGNANT MELANOMA O 04/14/2017 CODEY BARILLAS MD Ot Z86.010 PERSONAL HISTORY OF COLONIC POLYPS 04/14/2017 CODEY BARILLAS MD Ot Z87.19 PERSONAL HISTORY OF OTHER DISEASES OF TH 04/14/2017 CODEY BARILLAS MD Ot Z87.891 PERSONAL HISTORY OF NICOTINE DEPENDENCE 04/14/2017 CODEY BARILLAS MD Ot Z95.0 PRESENCE OF CARDIAC PACEMAKER 04/14/2017 CODEY BARILLAS MD Ot Z95.1 PRESENCE OF AORTOCORONARY BYPASS GRAFT 04/14/2017 CODEY BARILLAS MD Ot Z95.5 PRESENCE OF CORONARY ANGIOPLASTY IMPLANT 04/14/2017 CODEY BARILLAS MD Ot B37.0 CANDIDAL STOMATITIS 04/14/2017 CODEY BARILLAS MD Ot E78.00 PURE HYPERCHOLESTEROLEMIA, UNSPECIFIED 04/14/2017 CODEY BARILLAS MD Ot G47.30 SLEEP APNEA, UNSPECIFIED 04/14/2017 CODEY BARILLAS MD Ot I08.3 COMB RHEUMATIC DISORD OF [place], AORTIC 04/14/2017 CODEY BARILLAS MD, Ot I1 0 ESSENTIAL (PRIMARY) HYPERTENSION 04/14/2017 CODEY BARILLAS MD Ot I11.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 04/14/2017 CODEY BARILLAS MD Ot I25.10 ATHSCL HEART DISEASE OF [place] CORONARY 04/14/2017 CODEY BARILLAS MD Ot I44.39 OTHER ATRIOVENTRICULAR BLOCK 04/14/2017 CODEY BARILLAS MD Ot I48.2 CHRONIC ATRIAL FIBRILLATION 04/14/2017 CODEY BARILLAS MD Ot I48.92 UNSPECIFIED ATRIAL FLUTTER 04/14/2017 CODEY BARILLAS MD Ot I50.33 ACUTE ON CHRONIC DIASTOLIC (CONGESTIVE) 04/14/2017 CODEY BARILLAS MD Ot I65.29 OCCLUSION AND STENOSIS OF UNSPECIFIED CA 04/14/2017 CODEY BARILLAS MD Ot J18.9 PNEUMONIA, UNSPECIFIED ORGANISM 04/14/2017 CODEY BARILLAS MD Ot 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 04/14/2017 CODEY BARILLAS MD, Ot J44.1 CHRONIC OBSTRUCTIVE PULMONARY DISEASE W 04/14/2017 CODEY BARILLAS MD Ot K51.90 ULCERATIVE COLITIS, UNSPECIFIED, WITHOUT 04/14/2017 CODEY BARILLAS MD Ot R04.2 HEMOPTYSIS 04/14/2017 CODEY BARILLAS MD Ot R09.02 HYPOXEMIA 04/14/2017 CODEY BARILLAS MD Ot R73.01 IMPAIRED FASTING GLUCOSE 04/14/2017 CODEY BARILLAS MD Ot Z68.30 BODY MASS INDEX (BMI) 30.0-30.9, ADULT 04/14/2017 CODEY BARILLAS MD Ot Z79.01 CORRECTION (CURRENT) USE OF ANTICOAGULANT 04/14/2017 CODEY BARILLAS MD Ot Z85.820 PERSONAL HISTORY OF MALIGNANT M[place]AN[place] O 04/14/2017 CODEY BARILLAS MD Ot Z86.010 PERSONAL HISTORY OF COLONIC POLYPS 04/14/2017 CODEY BARILLAS MD Ot Z87.19 PERSONAL HISTORY OF OTHER DISEASES OF TH 04/14/2017 CODEY BARILLAS MD Ot Z87.891 PERSONAL HISTORY OF NICOTINE DEPENDENCE 04/14/2017 CODEY BARILLAS MD Ot Z95.0 PRESENCE OF CARDIAC PACEMAKER 04/14/2017 CODEY BARILLAS MD Ot Z95.1 PRESENCE OF AORTOCORONARY BYPASS GRAFT 04/14/2017 CODEY BARILLAS MD Ot Z95.5 PRESENCE OF CORONARY ANGIOPLASTY IMPLANT 04/14/2017 CODEY BARILLAS MD Ot B37.0 CANDIDAL STOMATITIS 04/14/2017 CODEY BARILLAS MD Ot E78.00 PURE HYPERCHOLESTEROLEMIA, UNSPECIFIED 04/14/2017 CODEY BARILLAS MD Ot G47.30 SLEEP APNEA, UNSPECIFIED 04/14/2017 CODEY BARILLAS MD Ot I08.3 COMB RHEUMATIC DISORD OF [place], AORTIC 04/14/2017 CODEY BARILLAS MD Ot I1 0 ESSENTIAL (PRIMARY) HYPERTENSION 04/14/2017 CODEY BARILLAS MD Ot I11.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 04/14/2017 CODEY BARILLAS MD Ot I25.10 ATHSCL HEART DISEASE OF [place] CORONARY 04/14/2017 CODEY BARILLAS MD Ot I44.39 OTHER ATRIOVENTRICULAR BLOCK 04/14/2017 CODEY BARILLAS MD Ot I48.2 CHRONIC ATRIAL FIBRILLATION 04/14/2017 CODEY BARILLAS MD Ot I48.92 UNSPECIFIED ATRIAL FLUTTER 04/14/2017 CODEY BARILLAS MD Ot I50.33 ACUTE ON CHRONIC DIASTOLIC (CONGESTIVE) 04/14/2017 CODEY BARILLAS MD Ot I65.29 OCCLUSION AND STENOSIS OF UNSPECIFIED CA 04/14/2017 CODEY BARILLAS MD Ot J18.9 PNEUMONIA, UNSPECIFIED ORGANISM 04/14/2017 CODEY BARILLAS MD, Ot 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 04/14/2017 CODEY BARILLAS MD Ot J44.1 CHRONIC OBSTRUCTIVE PULMONARY DISEASE W 04/14/2017 CODEY BARILLAS MD Ot K51.90 ULCERATIVE COLITIS, UNSPECIFIED, WITHOUT 04/14/2017 CODEY BARILLAS MD Ot R04.2 HEMOPTYSIS 04/14/2017 CODEY BARILLAS MD Ot R09.02 HYPOXEMIA 04/14/2017 CODEY BARILLAS MD Ot R73.01 IMPAIRED FASTING GLUCOSE 04/14/2017 CODEY BARILLAS MD Ot Z68.30 BODY MASS INDEX (BMI) 30.0-30.9, ADULT 04/14/2017 CODEY BARILLAS MD Ot Z79.01 ENTRY LEVEL ACCOUNT EXECUTIVE (CURRENT) USE OF ANTICOAGULANT 04/14/2017 CODEY BARILLAS MD Ot Z85.820 PERSONAL HISTORY OF MALIGNANT MELANOMA O 04/14/2017 CODEY BARILLAS MD Ot Z86.010 PERSONAL HISTORY OF COLONIC POLYPS 04/14/2017 CODEY BARILLAS MD Ot Z87.19 PERSONAL HISTORY OF OTHER DISEASES OF TH 04/14/2017 CODEY BARILLAS MD Ot Z87.891 PERSONAL HISTORY OF NICOTINE DEPENDENCE 04/14/2017 CODEY BARILLAS MD Ot Z95.0 PRESENCE OF CARDIAC PACEMAKER 04/14/2017 CODEY BARILLAS MD Ot Z95.1 PRESENCE OF AORTOCORONARY BYPASS GRAFT 04/14/2017 CODEY BARILLAS MD Ot Z95.5 PRESENCE OF CORONARY ANGIOPLASTY IMPLANT 04/15/2017 CODEY BARILLAS MD Ot B37.0 CANDIDAL STOMATITIS 04/15/2017 CODEY BARILLAS MD Ot E78.00 PURE HYPERCHOLESTEROLEMIA, UNSPECIFIED 04/15/2017 CODEY BARILLAS MD Ot G47.30 SLEEP APNEA, UNSPECIFIED 04/15/2017 CODEY BARILLAS MD Ot I08.3 COMB RHEUMATIC DISORD OF [place], AORTIC 04/15/2017 CODEY BARILLAS MD Ot I1 0 ESSENTIAL (PRIMARY) HYPERTENSION 04/15/2017 CODEY BARILLAS MD Ot I11.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 04/15/2017 CODEY BARILLAS MD Ot I25.10 ATHSCL HEART DISEASE OF [place] CORONARY 04/15/2017 CODEY BARILLAS MD Ot I44.39 OTHER ATRIOVENTRICULAR BLOCK 04/15/2017 CODEY BARILLAS MD Ot I48.2 CHRONIC ATRIAL FIBRILLATION 04/15/2017 CODEY BARILLAS MD Ot I48.92 UNSPECIFIED ATRIAL FLUTTER 04/15/2017 CODEY BARILLAS MD Ot I50.33 ACUTE ON CHRONIC DIASTOLIC (CONGESTIVE) 04/15/2017 CODEY BARILLAS MD Ot I65.29 OCCLUSION AND STENOSIS OF UNSPECIFIED CA 04/15/2017 CODEY BARILLAS MD Ot J18.9 PNEUMONIA, UNSPECIFIED ORGANISM 04/15/2017 CODEY BARILLAS MD, Ot 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 04/15/2017 CODEY BARILLAS MD, Ot J44.1 CHRONIC OBSTRUCTIVE PULMONARY DISEASE W 04/15/2017 CODEY BARILLAS MD, Ot K51.90 ULCERATIVE COLITIS, UNSPECIFIED, WITHOUT 04/15/2017 CODEY BARILLAS MD Ot R04.2 HEMOPTYSIS 04/15/2017 CODEY BARILLAS MD Ot R09.02 HYPOXEMIA 04/15/2017 CODEY BARILLAS MD Ot R73.01 IMPAIRED FASTING GLUCOSE 04/15/2017 CODEY BARILLAS MD Ot Z68.30 BODY MASS INDEX (BMI) 30.0-30.9, ADULT 04/15/2017 CODEY BARILLAS MD Ot Z79.01 ENTRY LEVEL ACCOUNT EXECUTIVE (CURRENT) USE OF ANTICOAGULANT 04/15/2017 CODEY BARILLAS MD Ot Z85.820 PERSONAL HISTORY OF MALIGNANT MELANOMA O 04/15/2017 CODEY BARILLAS MD Ot Z86.010 PERSONAL HISTORY OF COLONIC POLYPS 04/15/2017 CODEY BARILLAS MD Ot Z87.19 PERSONAL HISTORY OF OTHER DISEASES OF TH 04/15/2017 CODEY BARILLAS MD Ot Z87.891 PERSONAL HISTORY OF NICOTINE DEPENDENCE 04/15/2017 CODEY BARILLAS MD Ot Z95.0 PRESENCE OF CARDIAC PACEMAKER 04/15/2017 CODEY BARILLAS MD Ot Z95.1 PRESENCE OF AORTOCORONARY BYPASS GRAFT 04/15/2017 CODEY BARILLAS MD Ot Z95.5 PRESENCE OF CORONARY ANGIOPLASTY IMPLANT 04/16/2017 CODEY BARILLAS MD Ot B37.0 CANDIDAL STOMATITIS 04/16/2017 CODEY BARILLAS MD Ot E78.00 PURE HYPERCHOLESTEROLEMIA, UNSPECIFIED 04/16/2017 CODEY BARILLAS MD Ot G47.30 SLEEP APNEA, UNSPECIFIED 04/16/2017 CODEY BARILLAS MD Ot I08.3 COMB RHEUMATIC DISORD OF [place], AORTIC 04/16/2017 CODEY BARILLAS MD Ot I1 0 ESSENTIAL (PRIMARY) HYPERTENSION 04/16/2017 CODEY BARILLAS MD Ot I11.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 04/16/2017 CODEY BARILLAS MD Ot I25.10 ATHSCL HEART DISEASE OF [place] CORONARY 04/16/2017 CODEY BARILLAS MD Ot I44.39 OTHER ATRIOVENTRICULAR BLOCK 04/16/2017 CODEY BARILLAS MD Ot I48.2 CHRONIC ATRIAL FIBRILLATION 04/16/2017 CODEY BARILLAS MD Ot I48.92 UNSPECIFIED ATRIAL FLUTTER 04/16/2017 CODEY BARILLAS MD Ot I50.33 ACUTE ON CHRONIC DIASTOLIC (CONGESTIVE) 04/16/2017 CODEY BARILLAS MD Ot I65.29 OCCLUSION AND STENOSIS OF UNSPECIFIED CA 04/16/2017 CODEY BARILLAS MD Ot J18.9 PNEUMONIA, UNSPECIFIED ORGANISM 04/16/2017 CODEY BARILLAS MD Ot 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 04/16/2017 CODEY BARILLAS MD Ot J44.1 CHRONIC OBSTRUCTIVE PULMONARY DISEASE W 04/16/2017 CODEY BARILLAS MD Ot K51.90 ULCERATIVE COLITIS, UNSPECIFIED, WITHOUT 04/16/2017 CODEY BARILLAS MD Ot R04.2 HEMOPTYSIS 04/16/2017 CODEY BARILLAS MD Ot R09.02 HYPOXEMIA 04/16/2017 CODEY BARILLAS MD Ot R73.01 IMPAIRED FASTING GLUCOSE 04/16/2017 CODEY BARILLAS MD Ot Z68.30 BODY MASS INDEX (BMI) 30.0-30.9, ADULT 04/16/2017 CODEY BARILLAS MD Ot Z79.01 ENTRY LEVEL ACCOUNT EXECUTIVE (CURRENT) USE OF ANTICOAGULANT 04/16/2017 CODEY BARILLAS MD Ot Z85.820 PERSONAL HISTORY OF MALIGNANT MELANOMA O 04/16/2017 CODEY BARILLAS MD Ot Z86.010 PERSONAL HISTORY OF COLONIC POLYPS 04/16/2017 CODEY BARILLAS MD Ot Z87.19 PERSONAL HISTORY OF OTHER DISEASES OF TH 04/16/2017 CODEY BARILLAS MD Ot Z87.891 PERSONAL HISTORY OF NICOTINE DEPENDENCE 04/16/2017 CODEY BARILLAS MD Ot Z95.0 PRESENCE OF CARDIAC PACEMAKER 04/16/2017 CODEY BARILLAS MD Ot Z95.1 PRESENCE OF AORTOCORONARY BYPASS GRAFT 04/16/2017 CODEY BARILLAS MD Ot Z95.5 PRESENCE OF CORONARY ANGIOPLASTY IMPLANT 04/16/2017 CODEY BARILLAS MD Ot A41.9 SEPSIS, UNSPECIFIED ORGANISM 04/16/2017 CODEY BARILLAS MD Ot B37.0 CANDIDAL STOMATITIS 04/16/2017 CODEY BARILLAS MD Ot E78.00 PURE HYPERCHOLESTEROLEMIA, UNSPECIFIED 04/16/2017 CODEY BARILLAS MD Ot E78.5 HYPERLIPIDEMIA, UNSPECIFIED 04/16/2017 CODEY BARILLAS MD Ot G47.30 SLEEP APNEA, UNSPECIFIED 04/16/2017 CODEY BARILLAS MD Ot I08.3 COMB RHEUMATIC DISORD OF [place], AORTIC 04/16/2017 CODEY BARILLAS MD Ot I11.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 04/16/2017 CODEY BARILLAS MD Ot I25.10 ATHSCL HEART DISEASE OF [place] CORONARY 04/16/2017 CODEY BARILLAS MD Ot I44.39 OTHER ATRIOVENTRICULAR BLOCK 04/16/2017 CODEY BARILLAS MD Ot I48.2 CHRONIC ATRIAL FIBRILLATION 04/16/2017 CODEY BARILLAS MD Ot I48.92 UNSPECIFIED ATRIAL FLUTTER 04/16/2017 CODEY BARILLAS MD Ot I50.33 ACUTE ON CHRONIC DIASTOLIC (CONGESTIVE) 04/16/2017 CODEY BARILLAS MD Ot I65.29 OCCLUSION AND STENOSIS OF UNSPECIFIED CA 04/16/2017 CODEY BARILLAS MD Ot J18.9 PNEUMONIA, UNSPECIFIED ORGANISM 04/16/2017 CODEY BARILLAS MD Ot 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 04/16/2017 CODEY BARILLAS MD Ot J44.1 CHRONIC OBSTRUCTIVE PULMONARY DISEASE W 04/16/2017 CODEY BARILLAS MD Ot K51.90 ULCERATIVE COLITIS, UNSPECIFIED, WITHOUT 04/16/2017 CODEY BARILLAS MD Ot R04.2 HEMOPTYSIS 04/16/2017 CODEY BARILLAS MD Ot R06.03 ACUTE RESPIRATORY DISTRESS 04/16/2017 CODEY BARILLAS MD Ot R09.02 HYPOXEMIA 04/16/2017 CODEY BARILLAS MD Ot R73.01 IMPAIRED FASTING GLUCOSE 04/16/2017 CODEY BARILLAS MD Ot Z68.30 BODY MASS INDEX (BMI) 30.0-30.9, ADULT 04/16/2017 CODEY BARILLAS MD Ot Z79.01 CORRECTION (CURRENT) USE OF ANTICOAGULANT 04/16/2017 CODEY BARILLAS MD Ot Z85.820 PERSONAL HISTORY OF MALIGNANT MELANOMA O 04/16/2017 CODEY BARILLAS MD Ot Z86.010 PERSONAL HISTORY OF COLONIC POLYPS 04/16/2017 CODEY BARILLAS MD Ot Z87.19 PERSONAL HISTORY OF OTHER DISEASES OF TH 04/16/2017 CODEY BARILLAS MD Ot Z87.891 PERSONAL HISTORY OF NICOTINE DEPENDENCE 04/16/2017 CODEY BARILLAS MD Ot Z95.0 PRESENCE OF CARDIAC PACEMAKER 04/16/2017 CODEY BARILLAS MD Ot Z95.1 PRESENCE OF AORTOCORONARY BYPASS GRAFT 04/16/2017 CODEY BARILLAS MD Ot Z95.5 PRESENCE OF CORONARY ANGIOPLASTY IMPLANT 05/02/2017 CODEY BARILLAS MD Ot J18.9 PNEUMONIA, UNSPECIFIED ORGANISM 05/02/2017 CODEY BARILLAS MD Ot J44.9 CHRONIC OBSTRUCTIVE PULMONARY DISEASE, U 05/02/2017 CODEY BARILLAS MD Ot Z95.0 PRESENCE OF CARDIAC PACEMAKER 05/02/2017 CODEY BARILLAS MD Ot Z95.1 PRESENCE OF AORTOCORONARY BYPASS GRAFT 06/20/2017 CODEY BARILLAS MD, Ot J18.9 PNEUMONIA, UNSPECIFIED ORGANISM 06/20/2017 CODEY BARILLAS MD Ot J44.9 CHRONIC OBSTRUCTIVE PULMONARY DISEASE, U 06/20/2017 COEDY BARILLAS MD Ot Z95.0 PRESENCE OF CARDIAC PACEMAKER 06/20/2017 CODEY BARILLAS MD Ot Z95.1 PRESENCE OF AORTOCORONARY BYPASS GRAFT 09/05/2018 EULALIA DO KOBI Ot D64.9 ANEMIA, UNSPECIFIED 09/05/2018 EULALIA DO KOBI Ot E78.00 PURE HYPERCHOLESTEROLEMIA, UNSPECIFIED 09/05/2018 EULALIA DO KOBI Ot G47.33 OBSTRUCTIVE SLEEP APNEA (ADULT) (PEDIATR 09/05/2018 EULALIA RIVERA KOBI Ot 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 09/05/2018 KOBI ESTEBAN DO Ot I11.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 09/05/2018 KOBI ESTEBAN DO Ot I25.10 ATHSCL HEART DISEASE OF [place] CORONARY 09/05/2018 KOBI ESTEBAN DO Ot I25.2 OLD MYOCARDIAL INFARCTION 09/05/2018 KOBI ESTEBAN DO Ot I48.2 CHRONIC ATRIAL FIBRILLATION 09/05/2018 KBOI ESTEBAN DO Ot I48.92 UNSPECIFIED ATRIAL FLUTTER 09/05/2018 KOBI ESTEBAN DO Ot I50.32 CHRONIC DIASTOLIC (CONGESTIVE) HEART [place]EREM[place] 09/05/2018 KOBI ESTEBAN DO Ot J18.1 LOBAR PNEUMONIA, UNSPECIFIED ORGANISM 09/05/2018 KOBI ESTEBAN DO Ot 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 09/05/2018 KOBI ESTEBAN DO Ot 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) 09/05/2018 KOBI ESTEBAN DO Ot J90 PLEURAL EFFUSION, NOT ELSEWHERE CLASSIFI 09/05/2018 KOBI ESTEBAN DO Ot J96.00 ACUTE RESPIRATORY FAILURE, UNSP W HYPOXI 09/05/2018 KOBI ESTEBAN DO Ot J98.01 ACUTE BRONCHOSPASM 09/05/2018 KOBI ESTEBAN DO Ot K51.90 ULCERATIVE COLITIS, UNSPECIFIED, WITHOUT 09/05/2018 KOBI ESTEBAN DO Ot R31.21 ASYMPTOMATIC MICROSCOPIC HEMATURIA 09/05/2018 KOBI ESTEBAN DO Ot R73.01 IMPAIRED FASTING GLUCOSE 09/05/2018 KOBI ESTEBAN DO Ot Z79.01 ENTRY LEVEL ACCOUNT EXECUTIVE (CURRENT) USE OF ANTICOAGULANT 09/05/2018 KOBI ESTEBAN DO Ot Z85.82 0 PERSONAL HISTORY OF MALIGNANT MELANOMA O 09/05/2018 KOBI ESTEBAN DO Ot Z86.01 0 PERSONAL HISTORY OF COLONIC POLYPS 09/05/2018 KOBI ESTEBAN DO Ot Z87.89 1 PERSONAL HISTORY OF NICOTINE DEPENDENCE 09/05/2018 KOBI ESTEBAN DO Ot Z95.0 PRESENCE OF CARDIAC PACEMAKER 09/05/2018 KOBI ESTEBAN DO Ot Z95.1 PRESENCE OF AORTOCORONARY BYPASS GRAFT 09/05/2018 KOBI ESTEBAN DO Ot Z95.5 PRESENCE OF CORONARY ANGIOPLASTY IMPLANT 09/07/2018 KOBI ESTEBAN DO Ot D64.9 ANEMIA, UNSPECIFIED 09/07/2018 LORETO ESTEBAN DOI Ot E78.00 PURE HYPERCHOLESTEROLEMIA, UNSPECIFIED 09/07/2018 LORETO ESTEBAN DOI Ot G47.33 OBSTRUCTIVE SLEEP APNEA (ADULT) (PEDIATR 09/07/2018 LORETO ESTEBAN DOI Ot 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 09/07/2018 EULALIA RIVERA KOBI Ot I11.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 09/07/2018 LORETO ESTEBAN DOI Ot I25.10 ATHSCL HEART DISEASE OF [place] CORONARY 09/07/2018 LORETO ESTEBAN DOI Ot I25.2 OLD MYOCARDIAL INFARCTION 09/07/2018 LORETO ESTEBAN DOI Ot I48.2 CHRONIC ATRIAL FIBRILLATION 09/07/2018 LORETO ESTEBAN DOI Ot I48.92 UNSPECIFIED ATRIAL FLUTTER 09/07/2018 LORETO ESTEBAN DOI Ot I50.32 CHRONIC DIASTOLIC (CONGESTIVE) HEART JEREMY 09/07/2018 KOBI ESTEBAN DO Ot J18.1 LOBAR PNEUMONIA, UNSPECIFIED ORGANISM 09/07/2018 KOBI ESTEBAN DO Ot 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 09/07/2018 LORETO ESTEBAN DOI Ot 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) 09/07/2018 LORETO ESTEBAN DOI Ot J90 PLEURAL EFFUSION, NOT ELSEWHERE CLASSIFI 09/07/2018 LORETO ESTEBAN DOI Ot J96.00 ACUTE RESPIRATORY FAILURE, UNSP W HYPOXI 09/07/2018 LORETO ESTEBAN DOI Ot J98.01 ACUTE BRONCHOSPASM 09/07/2018 KOBI ESTEBAN DO Ot K51.90 ULCERATIVE COLITIS, UNSPECIFIED, WITHOUT 09/07/2018 LORETO ESTEBAN DOI Ot R31.21 ASYMPTOMATIC MICROSCOPIC HEMATURIA 09/07/2018 KOBI ESTEBAN DO Ot R73.01 IMPAIRED FASTING GLUCOSE 09/07/2018 KOBI ESTEBAN DO Ot Z79.01 CORRECTION (CURRENT) USE OF ANTICOAGULANT 09/07/2018 KOBI ESTEBAN DO Ot Z85.82 0 PERSONAL HISTORY OF MALIGNANT MELANOMA O 09/07/2018 KOBI ESTEBAN DO Ot Z86.01 0 PERSONAL HISTORY OF COLONIC POLYPS 09/07/2018 KOBI ESTEBAN DO Ot Z87.89 1 PERSONAL HISTORY OF NICOTINE DEPENDENCE 09/07/2018 KOBI ESTEBAN DO Ot Z95.0 PRESENCE OF CARDIAC PACEMAKER 09/07/2018 KOBI ESTEABN DO Ot Z95.1 PRESENCE OF AORTOCORONARY BYPASS GRAFT 09/07/2018 KOBI ESTEBAN DO Ot Z95.5 PRESENCE OF CORONARY ANGIOPLASTY IMPLANT 09/08/2018 KOBI ESTEBAN DO Ot D64.9 ANEMIA, UNSPECIFIED 09/08/2018 LORETO ESTEBAN DOI Ot E78.00 PURE HYPERCHOLESTEROLEMIA, UNSPECIFIED 09/08/2018 KOBI ESTEBAN DO Ot G47.33 OBSTRUCTIVE SLEEP APNEA (ADULT) (PEDIATR 09/08/2018 LORETO ESTEBAN DOI Ot 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 09/08/2018 KOBI ESTEBAN DO Ot I11.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 09/08/2018 KOBI ESTEBAN DO Ot I25.10 ATHSCL HEART DISEASE OF [place] CORONARY 09/08/2018 LORETO ESTEBAN DOI Ot I25.2 OLD MYOCARDIAL INFARCTION 09/08/2018 KOBI ESTEBAN DO Ot I48.2 CHRONIC ATRIAL FIBRILLATION 09/08/2018 KOBI ESTEBAN DO Ot I48.92 UNSPECIFIED ATRIAL FLUTTER 09/08/2018 LORETO ESTEBAN DOI Ot I50.32 CHRONIC DIASTOLIC (CONGESTIVE) HEART JEREMY 09/08/2018 KOBI ESTEBAN DO Ot J18.1 LOBAR PNEUMONIA, UNSPECIFIED ORGANISM 09/08/2018 LORETO ESTEBAN DOI Ot 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 09/08/2018 KOBI ESTEBAN DO Ot 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) 09/08/2018 KOBI ESTEBAN DO Ot J90 PLEURAL EFFUSION, NOT ELSEWHERE CLASSIFI 09/08/2018 KOBI ESTEBAN DO Ot J96.00 ACUTE RESPIRATORY FAILURE, UNSP W HYPOXI 09/08/2018 KOBI ESTEBAN DO Ot J98.01 ACUTE BRONCHOSPASM 09/08/2018 KOBI ESTEBAN DO Ot K51.90 ULCERATIVE COLITIS, UNSPECIFIED, WITHOUT 09/08/2018 EULALIA RIVERA KOBI Ot R31.21 ASYMPTOMATIC MICROSCOPIC HEMATURIA 09/08/2018 LORETO ESTEBAN DOI Ot R73.01 IMPAIRED FASTING GLUCOSE 09/08/2018 KOBI ESTEBAN DO Ot Z79.01 CORRECTION (CURRENT) USE OF ANTICOAGULANT 09/08/2018 KOBI ESTEBAN DO Ot Z85.82 0 PERSONAL HISTORY OF MALIGNANT MELANOMA O 09/08/2018 KOBI ESTEBAN DO Ot Z86.01 0 PERSONAL HISTORY OF COLONIC POLYPS 09/08/2018 KOBI ESTEBAN DO Ot Z87.89 1 PERSONAL HISTORY OF NICOTINE DEPENDENCE 09/08/2018 KOBI ESTEBAN DO Ot Z95.0 PRESENCE OF CARDIAC PACEMAKER 09/08/2018 KOBI ESTEBAN DO Ot Z95.1 PRESENCE OF AORTOCORONARY BYPASS GRAFT 09/08/2018 KOBI ESTEBAN DO Ot Z95.5 PRESENCE OF CORONARY ANGIOPLASTY IMPLANT 09/11/2018 KOBI ESTEBAN DO Ot D64.9 ANEMIA, UNSPECIFIED 09/11/2018 KOBI ESTEBAN DO Ot E78.00 PURE HYPERCHOLESTEROLEMIA, UNSPECIFIED 09/11/2018 KOBI ESTEBAN DO Ot E83.39 OTHER DISORDERS OF PHOSPHORUS METABOLISM 09/11/2018 KOBI ESTEBAN DO Ot E87.1 HYPO-OSMOLALITY AND HYPONATREMIA 09/11/2018 KOBI ESTEBAN DO Ot E87.2 ACIDOSIS 09/11/2018 KOBI ESTEBAN DO Ot E87.6 HYPOKALEMIA 09/11/2018 KOBI ESTEBAN DO Ot G47.33 OBSTRUCTIVE SLEEP APNEA (ADULT) (PEDIATR 09/11/2018 KOBI ESTEBAN DO Ot 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 09/11/2018 KOBI ESTEBAN DO Ot I11.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 09/11/2018 KOBI ESTEBAN DO Ot I25.10 ATHSCL HEART DISEASE OF [place] CORONARY 09/11/2018 KOBI ESTEBAN DO Ot I25.2 OLD MYOCARDIAL INFARCTION 09/11/2018 KOBI ESTEBAN DO Ot I48.2 CHRONIC ATRIAL FIBRILLATION 09/11/2018 KOBI ESTEBAN DO Ot I48.92 UNSPECIFIED ATRIAL FLUTTER 09/11/2018 KOBI ESTEBAN DO Ot I50.32 CHRONIC DIASTOLIC (CONGESTIVE) HEART JEREMY 09/11/2018 KOBI ESTEBAN DO Ot I50.33 ACUTE ON CHRONIC DIASTOLIC (CONGESTIVE) 09/11/2018 KOBI ESTEBAN DO Ot J18.1 LOBAR PNEUMONIA, UNSPECIFIED ORGANISM 09/11/2018 KOBI ESTEBAN DO Ot 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 09/11/2018 KOBI ESTEBAN DO Ot 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) 09/11/2018 KOBI ESTEBAN DO Ot J90 PLEURAL EFFUSION, NOT ELSEWHERE CLASSIFI 09/11/2018 KOBI ESTEBAN DO Ot J96.00 ACUTE RESPIRATORY FAILURE, UNSP W HYPOXI 09/11/2018 LORETO ESTEBAN DOI Ot J98.01 ACUTE BRONCHOSPASM 09/11/2018 KOBI ESTEBAN DO Ot K51.90 ULCERATIVE COLITIS, UNSPECIFIED, WITHOUT 09/11/2018 LORETO ESTEBAN DOI Ot N17.9 ACUTE KIDNEY FAILURE, UNSPECIFIED 09/11/2018 LORETO ESTEBAN DOI Ot R04.2 HEMOPTYSIS 09/11/2018 LORETO ESTEBAN DOI Ot R31.21 ASYMPTOMATIC MICROSCOPIC HEMATURIA 09/11/2018 LORETO ESTEBAN DOI Ot R39.11 HESITANCY OF MICTURITION 09/11/2018 LORETO ESTEBAN DOI Ot R53.1 WEAKNESS 09/11/2018 KOBI ESTEBAN DO Ot R60.0 LOCALIZED EDEMA 09/11/2018 LORETO ESTEBAN DOI Ot R73.01 IMPAIRED FASTING GLUCOSE 09/11/2018 KOBI ESTEBAN DO Ot Z79.01 CORRECTION (CURRENT) USE OF ANTICOAGULANT 09/11/2018 KOBI ESTEBAN DO Ot Z85.82 0 PERSONAL HISTORY OF MALIGNANT MELANOMA O 09/11/2018 LORETO ESTEBAN DOI Ot Z86.01 0 PERSONAL HISTORY OF COLONIC POLYPS 09/11/2018 LORETO ESTEBAN DOI Ot Z87.89 1 PERSONAL HISTORY OF NICOTINE DEPENDENCE 09/11/2018 KOBI ESTEBAN DO Ot Z95.0 PRESENCE OF CARDIAC PACEMAKER 09/11/2018 LORETO ESTEBAN DOI Ot Z95.1 PRESENCE OF AORTOCORONARY BYPASS GRAFT 09/11/2018 EULALIA RIVERA KOBI Ot Z95.5 PRESENCE OF CORONARY ANGIOPLASTY IMPLANT 09/13/2018 ERAN STEPHENSON, CODEY Bishop Ot D64.9 ANEMIA, UNSPECIFIED 09/13/2018 ERAN STEPHENSON, CODEY Bishop Ot E87.1 HYPO-OSMOLALITY AND HYPONATREMIA 09/13/2018 CODEY BARILLAS MD Ot E87.6 HYPOKALEMIA 09/13/2018 CODEY BARILLAS MD Ot G47.00 INSOMNIA, UNSPECIFIED 09/13/2018 CODEY BARILLAS MD Ot G47.33 OBSTRUCTIVE SLEEP APNEA (ADULT) (PEDIATR 09/13/2018 CODEY BARILLAS MD Ot I11.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 09/13/2018 CODEY BARILLAS MD Ot I25.10 ATHSCL HEART DISEASE OF [place] CORONARY 09/13/2018 CODEY BARILLAS MD, Ot I50.33 ACUTE ON CHRONIC DIASTOLIC (CONGESTIVE) 09/13/2018 CODEY BARILLAS MD Ot J18.1 LOBAR PNEUMONIA, UNSPECIFIED ORGANISM 09/13/2018 CODEY BARILLAS MD Ot J44.9 CHRONIC OBSTRUCTIVE PULMONARY DISEASE, U 09/13/2018 CODEY BARILLAS MD, Ot J96.00 ACUTE RESPIRATORY FAILURE, UNSP W HYPOXI 09/13/2018 CODEY BARILLAS MD Ot K51.90 ULCERATIVE COLITIS, UNSPECIFIED, WITHOUT 09/13/2018 CODEY BARILLAS MD Ot N17.9 ACUTE KIDNEY FAILURE, UNSPECIFIED 09/13/2018 CODEY BARILLAS MD Ot R19.5 OTHER FECAL ABNORMALITIES 09/13/2018 CODEY BARILLAS MD Ot R39.11 HESITANCY OF MICTURITION 09/13/2018 CODEY BARILLAS MD Ot R53.1 WEAKNESS 09/13/2018 CODEY BARILLAS MD Ot Z79.01 ENTRY LEVEL ACCOUNT EXECUTIVE (CURRENT) USE OF ANTICOAGULANT 09/13/2018 CODEY BARILLAS MD Ot Z87.19 PERSONAL HISTORY OF OTHER DISEASES OF TH 09/13/2018 CODEY BARILLAS MD Ot Z95.0 PRESENCE OF CARDIAC PACEMAKER 09/21/2018 CODEY BARILLAS MD Ot E11.9 TYPE 2 DIABETES MELLITUS WITHOUT COMPLIC 09/21/2018 CODEY BARILLAS MD Ot E78.00 PURE HYPERCHOLESTEROLEMIA, UNSPECIFIED 09/21/2018 CODEY BARILLAS MD Ot E87.2 ACIDOSIS 09/21/2018 CODEY BARILLAS MD Ot G47.30 SLEEP APNEA, UNSPECIFIED 09/21/2018 CODEY BARILLAS MD, Ot I1 0 ESSENTIAL (PRIMARY) HYPERTENSION 09/21/2018 CODEY BARILLAS MD Ot I25.10 ATHSCL HEART DISEASE OF [place] CORONARY 09/21/2018 CODEY BARILLAS MD Ot I48.91 UNSPECIFIED ATRIAL FIBRILLATION 09/21/2018 CODEY BARILLAS MD Ot J18.1 LOBAR PNEUMONIA, UNSPECIFIED ORGANISM 09/21/2018 CODEY BARILLAS MD Ot J30.2 OTHER SEASONAL ALLERGIC RHINITIS 09/21/2018 CODEY BARILLAS MD Ot 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 09/21/2018 CODEY BARILLAS MD Ot J44.1 CHRONIC OBSTRUCTIVE PULMONARY DISEASE W 09/21/2018 CODEY BARILLAS MD Ot K51.90 ULCERATIVE COLITIS, UNSPECIFIED, WITHOUT 09/21/2018 CODEY BARILLAS MD Ot R04.89 HEMORRHAGE FROM OTHER SITES IN RESPIRATO 09/21/2018 CODEY BARILLAS MD Ot R09.02 HYPOXEMIA 09/21/2018 CODEY BARILLAS MD Ot Z79.01 ENTRY LEVEL ACCOUNT EXECUTIVE (CURRENT) USE OF ANTICOAGULANT 09/21/2018 CODEY BARILLAS MD Ot Z85.820 PERSONAL HISTORY OF MALIGNANT MELANOMA O 09/21/2018 CODEY BARILLAS MD Ot Z86.010 PERSONAL HISTORY OF COLONIC POLYPS 09/21/2018 CODEY BARILLAS MD Ot Z87.891 PERSONAL HISTORY OF NICOTINE DEPENDENCE 09/21/2018 CODEY BARILLAS MD Ot Z95.0 PRESENCE OF CARDIAC PACEMAKER 09/21/2018 CODEY BARILLAS MD Ot Z95.1 PRESENCE OF AORTOCORONARY BYPASS GRAFT 09/21/2018 CODEY BARILLAS MD Ot Z95.5 PRESENCE OF CORONARY ANGIOPLASTY IMPLANT 09/21/2018 CODEY BARILLAS MD Ot E11.9 TYPE 2 DIABETES MELLITUS WITHOUT COMPLIC 09/21/2018 CODEY BARILLAS MD Ot E78.00 PURE HYPERCHOLESTEROLEMIA, UNSPECIFIED 09/21/2018 CODEY BARILLAS MD Ot E87.2 ACIDOSIS 09/21/2018 CODEY BARILLAS MD Ot G47.30 SLEEP APNEA, UNSPECIFIED 09/21/2018 CODEY BARILLAS MD Ot I1 0 ESSENTIAL (PRIMARY) HYPERTENSION 09/21/2018 CODEY BARILLAS MD Ot I25.10 ATHSCL HEART DISEASE OF [place] CORONARY 09/21/2018 CODEY BARILLAS MD Ot I48.91 UNSPECIFIED ATRIAL FIBRILLATION 09/21/2018 CODEY BARILLAS MD Ot J18.1 LOBAR PNEUMONIA, UNSPECIFIED ORGANISM 09/21/2018 CODEY BARILLAS MD Ot J30.2 OTHER SEASONAL ALLERGIC RHINITIS 09/21/2018 CODEY BARILLAS MD Ot 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 09/21/2018 CODEY BARILLAS MD Ot J44.1 CHRONIC OBSTRUCTIVE PULMONARY DISEASE W 09/21/2018 CODEY BARILLAS MD Ot K51.90 ULCERATIVE COLITIS, UNSPECIFIED, WITHOUT 09/21/2018 CODEY BARILLAS MD Ot R04.89 HEMORRHAGE FROM OTHER SITES IN RESPIRATO 09/21/2018 CODEY BARILLAS MD Ot R09.02 HYPOXEMIA 09/21/2018 CODEY BARILLAS MD Ot Z79.01 ENTRY LEVEL ACCOUNT EXECUTIVE (CURRENT) USE OF ANTICOAGULANT 09/21/2018 CODEY BARILLAS MD Ot Z85.820 PERSONAL HISTORY OF MALIGNANT MELANOMA O 09/21/2018 CODEY BARILLAS MD Ot Z86.010 PERSONAL HISTORY OF COLONIC POLYPS 09/21/2018 CODEY BARILLAS MD Ot Z87.891 PERSONAL HISTORY OF NICOTINE DEPENDENCE 09/21/2018 CODEY BARILLAS MD Ot Z95.0 PRESENCE OF CARDIAC PACEMAKER 09/21/2018 CODEY BARILLAS MD Ot Z95.1 PRESENCE OF AORTOCORONARY BYPASS GRAFT 09/21/2018 CODEY BARILLAS MD Ot Z95.5 PRESENCE OF CORONARY ANGIOPLASTY IMPLANT 09/22/2018 CODEY BARILLAS MD Ot E11.9 TYPE 2 DIABETES MELLITUS WITHOUT COMPLIC 09/22/2018 CODEY BARILLAS MD Ot E78.00 PURE HYPERCHOLESTEROLEMIA, UNSPECIFIED 09/22/2018 CODEY BARILLAS MD Ot E87.2 ACIDOSIS 09/22/2018 CODEY BARILLAS MD Ot G47.30 SLEEP APNEA, UNSPECIFIED 09/22/2018 CODEY BARILLAS MD Ot I1 0 ESSENTIAL (PRIMARY) HYPERTENSION 09/22/2018 CODEY BARILLAS MD Ot I25.10 ATHSCL HEART DISEASE OF [place] CORONARY 09/22/2018 CODEY BARILLAS MD Ot I48.91 UNSPECIFIED ATRIAL FIBRILLATION 09/22/2018 CODEY BARILLAS MD Ot J18.1 LOBAR PNEUMONIA, UNSPECIFIED ORGANISM 09/22/2018 CODEY BARILLAS MD Ot J30.2 OTHER SEASONAL ALLERGIC RHINITIS 09/22/2018 CODEY BARILLAS MD, Ot 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 09/22/2018 CODEY BARILLAS MD Ot J44.1 CHRONIC OBSTRUCTIVE PULMONARY DISEASE W 09/22/2018 CODEY BARILLAS MD Ot K51.90 ULCERATIVE COLITIS, UNSPECIFIED, WITHOUT 09/22/2018 CODEY BARILLAS MD Ot R04.89 HEMORRHAGE FROM OTHER SITES IN RESPIRATO 09/22/2018 CODEY BARILLAS MD Ot R09.02 HYPOXEMIA 09/22/2018 CODEY BARILLAS MD Ot Z79.01 CORRECTION (CURRENT) USE OF ANTICOAGULANT 09/22/2018 CODEY BARILLAS MD Ot Z85.820 PERSONAL HISTORY OF MALIGNANT MELANOMA O 09/22/2018 CODEY BARILLAS MD Ot Z86.010 PERSONAL HISTORY OF COLONIC POLYPS 09/22/2018 CODEY BARILLAS MD Ot Z87.891 PERSONAL HISTORY OF NICOTINE DEPENDENCE 09/22/2018 CODEY BARILLAS MD Ot Z95.0 PRESENCE OF CARDIAC PACEMAKER 09/22/2018 CODEY BARILLAS MD Ot Z95.1 PRESENCE OF AORTOCORONARY BYPASS GRAFT 09/22/2018 CODEY BARILLAS MD Ot Z95.5 PRESENCE OF CORONARY ANGIOPLASTY IMPLANT 09/23/2018 CODEY BARILLAS MD Ot E11.9 TYPE 2 DIABETES MELLITUS WITHOUT COMPLIC 09/23/2018 CODEY BARILLAS MD Ot E78.00 PURE HYPERCHOLESTEROLEMIA, UNSPECIFIED 09/23/2018 CODEY BARILLAS MD Ot E87.2 ACIDOSIS 09/23/2018 CODEY BARILLAS MD Ot G47.30 SLEEP APNEA, UNSPECIFIED 09/23/2018 CODEY BARILLAS MD Ot I1 0 ESSENTIAL (PRIMARY) HYPERTENSION 09/23/2018 CODEY BARILLAS MD Ot I25.10 ATHSCL HEART DISEASE OF [place] CORONARY 09/23/2018 CODEY BARILLAS MD Ot I48.91 UNSPECIFIED ATRIAL FIBRILLATION 09/23/2018 CODEY BARILLAS MD Ot J18.1 LOBAR PNEUMONIA, UNSPECIFIED ORGANISM 09/23/2018 CODEY BARILLAS MD Ot J30.2 OTHER SEASONAL ALLERGIC RHINITIS 09/23/2018 CODEY BARILLAS MD Ot 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 09/23/2018 CODEY BARILLAS MD Ot J44.1 CHRONIC OBSTRUCTIVE PULMONARY DISEASE W 09/23/2018 CODEY BARILLAS MD Ot K51.90 ULCERATIVE COLITIS, UNSPECIFIED, WITHOUT 09/23/2018 CODEY BARILLAS MD Ot R04.89 HEMORRHAGE FROM OTHER SITES IN RESPIRATO 09/23/2018 CODEY BARILLAS MD Ot R09.02 HYPOXEMIA 09/23/2018 CODEY BARILLAS MD Ot Z79.01 CORRECTION (CURRENT) USE OF ANTICOAGULANT 09/23/2018 CODEY BARILLAS MD Ot Z85.820 PERSONAL HISTORY OF MALIGNANT [place]AN[place] O 09/23/2018 CODEY BARILLAS MD Ot Z86.010 PERSONAL HISTORY OF COLONIC POLYPS 09/23/2018 CODEY BARILLAS MD Ot Z87.891 PERSONAL HISTORY OF NICOTINE DEPENDENCE 09/23/2018 CODEY BARILLAS MD Ot Z95.0 PRESENCE OF CARDIAC PACEMAKER 09/23/2018 CODEY BARILLAS MD Ot Z95.1 PRESENCE OF AORTOCORONARY BYPASS GRAFT 09/23/2018 CODEY BARILLAS MD Ot Z95.5 PRESENCE OF CORONARY ANGIOPLASTY IMPLANT 09/24/2018 CODEY BARILLAS MD Ot E11.9 TYPE 2 DIABETES MELLITUS WITHOUT COMPLIC 09/24/2018 CODEY BARILLAS MD Ot E78.00 PURE HYPERCHOLESTEROLEMIA, UNSPECIFIED 09/24/2018 CODEY BARILLAS MD Ot E87.2 ACIDOSIS 09/24/2018 CODEY BARILLAS MD Ot G47.30 SLEEP APNEA, UNSPECIFIED 09/24/2018 CODEY BARILLAS MD Ot I1 0 ESSENTIAL (PRIMARY) HYPERTENSION 09/24/2018 CODEY BARILLAS MD Ot I25.10 ATHSCL HEART DISEASE OF [place] CORONARY 09/24/2018 CODEY BARILLAS MD Ot I48.91 UNSPECIFIED ATRIAL FIBRILLATION 09/24/2018 CODEY BARILLAS MD Ot J18.1 LOBAR PNEUMONIA, UNSPECIFIED ORGANISM 09/24/2018 CODEY BARILLAS MD Ot J30.2 OTHER SEASONAL ALLERGIC RHINITIS 09/24/2018 CODEY BARILLAS MD Ot 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 09/24/2018 CODEY BARILLAS MD Ot J44.1 CHRONIC OBSTRUCTIVE PULMONARY DISEASE W 09/24/2018 CODEY BARILLAS MD Ot K51.90 ULCERATIVE COLITIS, UNSPECIFIED, WITHOUT 09/24/2018 CODEY BARILLAS MD Ot R04.89 HEMORRHAGE FROM OTHER SITES IN RESPIRATO 09/24/2018 CODEY BARILLAS MD Ot R09.02 HYPOXEMIA 09/24/2018 CODEY BARILLAS MD Ot Z79.01 ENTRY LEVEL ACCOUNT EXECUTIVE (CURRENT) USE OF ANTICOAGULANT 09/24/2018 CODEY BARILLAS MD Ot Z85.820 PERSONAL HISTORY OF MALIGNANT MELANOMA O 09/24/2018 CODEY BARILLAS MD Ot Z86.010 PERSONAL HISTORY OF COLONIC POLYPS 09/24/2018 CODEY BARILLAS MD Ot Z87.891 PERSONAL HISTORY OF NICOTINE DEPENDENCE 09/24/2018 CODEY BARILLAS MD Ot Z95.0 PRESENCE OF CARDIAC PACEMAKER 09/24/2018 CODEY BARILLAS MD Ot Z95.1 PRESENCE OF AORTOCORONARY BYPASS GRAFT 09/24/2018 CODEY BARILLAS MD Ot Z95.5 PRESENCE OF CORONARY ANGIOPLASTY IMPLANT 09/25/2018 CODEY BARILLAS MD Ot E11.9 TYPE 2 DIABETES MELLITUS WITHOUT COMPLIC 09/25/2018 CODEY BARILLAS MD Ot E78.00 PURE HYPERCHOLESTEROLEMIA, UNSPECIFIED 09/25/2018 CODEY BARILLAS MD Ot E87.2 ACIDOSIS 09/25/2018 CODEY BARILLAS MD Ot G47.30 SLEEP APNEA, UNSPECIFIED 09/25/2018 CODEY BARILLAS MD Ot I1 0 ESSENTIAL (PRIMARY) HYPERTENSION 09/25/2018 CODEY BARILLAS MD Ot I25.10 ATHSCL HEART DISEASE OF [place] CORONARY 09/25/2018 CODEY BARILLAS MD Ot I48.91 UNSPECIFIED ATRIAL FIBRILLATION 09/25/2018 CODEY BARILLAS MD Ot J18.1 LOBAR PNEUMONIA, UNSPECIFIED ORGANISM 09/25/2018 CODEY BARILLAS MD Ot J30.2 OTHER SEASONAL ALLERGIC RHINITIS 09/25/2018 CODEY BARILLAS MD Ot 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 09/25/2018 CODEY BARILLAS MD Ot J44.1 CHRONIC OBSTRUCTIVE PULMONARY DISEASE W 09/25/2018 CODEY BARILLAS MD Ot K51.90 ULCERATIVE COLITIS, UNSPECIFIED, WITHOUT 09/25/2018 CODEY BARILLAS MD Ot R04.89 HEMORRHAGE FROM OTHER SITES IN RESPIRATO 09/25/2018 CODEY BARILLAS MD Ot R09.02 HYPOXEMIA 09/25/2018 CODEY BARILLAS MD Ot Z79.01 ENTRY LEVEL ACCOUNT EXECUTIVE (CURRENT) USE OF ANTICOAGULANT 09/25/2018 CODEY BARILLAS MD Ot Z85.820 PERSONAL HISTORY OF MALIGNANT MELANOMA O 09/25/2018 CODEY BARILLAS MD Ot Z86.010 PERSONAL HISTORY OF COLONIC POLYPS 09/25/2018 CODEY BARILLAS MD Ot Z87.891 PERSONAL HISTORY OF NICOTINE DEPENDENCE 09/25/2018 CODEY BARILLAS MD Ot Z95.0 PRESENCE OF CARDIAC PACEMAKER 09/25/2018 CODEY BARILLAS MD Ot Z95.1 PRESENCE OF AORTOCORONARY BYPASS GRAFT 09/25/2018 CODEY BARILLAS MD Ot Z95.5 PRESENCE OF CORONARY ANGIOPLASTY IMPLANT 09/25/2018 CODEY BARILLAS MD Ot E11.9 TYPE 2 DIABETES MELLITUS WITHOUT COMPLIC 09/25/2018 CODEY BARILLAS MD Ot E78.00 PURE HYPERCHOLESTEROLEMIA, UNSPECIFIED 09/25/2018 CODEY BARILLAS MD Ot E87.2 ACIDOSIS 09/25/2018 CODEY BARILLAS MD Ot G47.30 SLEEP APNEA, UNSPECIFIED 09/25/2018 CODEY BARILLAS MD Ot I1 0 ESSENTIAL (PRIMARY) HYPERTENSION 09/25/2018 CODEY BARILLAS MD Ot I25.10 ATHSCL HEART DISEASE OF [place] CORONARY 09/25/2018 CODEY BARILLAS MD Ot I48.91 UNSPECIFIED ATRIAL FIBRILLATION 09/25/2018 CODEY BARILLAS MD Ot J18.1 LOBAR PNEUMONIA, UNSPECIFIED ORGANISM 09/25/2018 CODEY BARILLAS MD Ot J30.2 OTHER SEASONAL ALLERGIC RHINITIS 09/25/2018 CODEY BARILLAS MD Ot 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 09/25/2018 CODEY BARILLAS MD Ot J44.1 CHRONIC OBSTRUCTIVE PULMONARY DISEASE W 09/25/2018 CODEY BARILLAS MD Ot K51.90 ULCERATIVE COLITIS, UNSPECIFIED, WITHOUT 09/25/2018 CODEY BARILLAS MD Ot R04.89 HEMORRHAGE FROM OTHER SITES IN RESPIRATO 09/25/2018 CODEY BARILLAS MD Ot R09.02 HYPOXEMIA 09/25/2018 CODEY BARILLAS MD Ot Z79.01 ENTRY LEVEL ACCOUNT EXECUTIVE (CURRENT) USE OF ANTICOAGULANT 09/25/2018 CODEY BARILLAS MD Ot Z85.820 PERSONAL HISTORY OF MALIGNANT MELANOMA O 09/25/2018 CODEY BARILLAS MD Ot Z86.010 PERSONAL HISTORY OF COLONIC POLYPS 09/25/2018 CODEY BARILLAS MD Ot Z87.891 PERSONAL HISTORY OF NICOTINE DEPENDENCE 09/25/2018 CODEY BARILLAS MD Ot Z95.0 PRESENCE OF CARDIAC PACEMAKER 09/25/2018 CODEY BARILLAS MD Ot Z95.1 PRESENCE OF AORTOCORONARY BYPASS GRAFT 09/25/2018 CODEY BARILLAS MD Ot Z95.5 PRESENCE OF CORONARY ANGIOPLASTY IMPLANT 09/26/2018 CODEY BARILLAS MD Ot E11.9 TYPE 2 DIABETES MELLITUS WITHOUT COMPLIC 09/26/2018 CODEY BARILLAS MD Ot E78.00 PURE HYPERCHOLESTEROLEMIA, UNSPECIFIED 09/26/2018 CODEY BARILLAS MD Ot E87.2 ACIDOSIS 09/26/2018 CODEY BARILLAS MD Ot G47.30 SLEEP APNEA, UNSPECIFIED 09/26/2018 CODEY BARILLAS MD Ot I1 0 ESSENTIAL (PRIMARY) HYPERTENSION 09/26/2018 COEDY BARILLAS MD Ot I25.10 ATHSCL HEART DISEASE OF [place] CORONARY 09/26/2018 CODEY BARILLAS MD Ot I48.91 UNSPECIFIED ATRIAL FIBRILLATION 09/26/2018 CODEY BARILLAS MD Ot J18.1 LOBAR PNEUMONIA, UNSPECIFIED ORGANISM 09/26/2018 CODEY BARILLAS MD Ot J30.2 OTHER SEASONAL ALLERGIC RHINITIS 09/26/2018 CODEY BARILLAS MD Ot 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 09/26/2018 CODEY BARILLAS MD Ot J44.1 CHRONIC OBSTRUCTIVE PULMONARY DISEASE W 09/26/2018 CODEY BARILLAS MD Ot K51.90 ULCERATIVE COLITIS, UNSPECIFIED, WITHOUT 09/26/2018 CODEY BARILLAS MD Ot R04.89 HEMORRHAGE FROM OTHER SITES IN RESPIRATO 09/26/2018 CODEY BARILLAS MD Ot R09.02 HYPOXEMIA 09/26/2018 CODEY BARILLAS MD Ot Z79.01 CORRECTION (CURRENT) USE OF ANTICOAGULANT 09/26/2018 CODEY BARILLAS MD Ot Z85.820 PERSONAL HISTORY OF MALIGNANT MELANOMA O 09/26/2018 CODEY BARILLAS MD Ot Z86.010 PERSONAL HISTORY OF COLONIC POLYPS 09/26/2018 CODEY BARILLAS MD Ot Z87.891 PERSONAL HISTORY OF NICOTINE DEPENDENCE 09/26/2018 CODEY BARILLAS MD Ot Z95.0 PRESENCE OF CARDIAC PACEMAKER 09/26/2018 CODEY BARILLAS MD Ot Z95.1 PRESENCE OF AORTOCORONARY BYPASS GRAFT 09/26/2018 CODEY BARILLAS MD Ot Z95.5 PRESENCE OF CORONARY ANGIOPLASTY IMPLANT 09/27/2018 CODEY BARILLAS MD Ot E11.9 TYPE 2 DIABETES MELLITUS WITHOUT COMPLIC 09/27/2018 CODEY BARILLAS MD Ot E78.00 PURE HYPERCHOLESTEROLEMIA, UNSPECIFIED 09/27/2018 CODEY BARILLAS MD Ot E87.2 ACIDOSIS 09/27/2018 CODEY BARILLAS MD Ot G47.30 SLEEP APNEA, UNSPECIFIED 09/27/2018 CODEY BARILLAS MD Ot I1 0 ESSENTIAL (PRIMARY) HYPERTENSION 09/27/2018 CODEY BARILLAS MD Ot I25.10 ATHSCL HEART DISEASE OF [place] CORONARY 09/27/2018 CODEY BARILLAS MD Ot I48.91 UNSPECIFIED ATRIAL FIBRILLATION 09/27/2018 CODEY BARILLAS MD Ot J18.1 LOBAR PNEUMONIA, UNSPECIFIED ORGANISM 09/27/2018 CODEY BARILLAS MD Ot J30.2 OTHER SEASONAL ALLERGIC RHINITIS 09/27/2018 CODEY BARILLAS MD Ot 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 09/27/2018 CODEY BARILLAS MD Ot J44.1 CHRONIC OBSTRUCTIVE PULMONARY DISEASE W 09/27/2018 CODEY BARILLAS MD Ot K51.90 ULCERATIVE COLITIS, UNSPECIFIED, WITHOUT 09/27/2018 CODEY BARILLAS MD Ot R04.89 HEMORRHAGE FROM OTHER SITES IN RESPIRATO 09/27/2018 CODEY BARILLAS MD Ot R09.02 HYPOXEMIA 09/27/2018 CODEY BRAILLAS MD Ot Z79.01 CORRECTION (CURRENT) USE OF ANTICOAGULANT 09/27/2018 CODEY BARILLAS MD Ot Z85.820 PERSONAL HISTORY OF MALIGNANT MELANOMA O 09/27/2018 CODEY BARILLAS MD Ot Z86.010 PERSONAL HISTORY OF COLONIC POLYPS 09/27/2018 CODEY BARILLAS MD Ot Z87.891 PERSONAL HISTORY OF NICOTINE DEPENDENCE 09/27/2018 CODEY BARILLAS MD Ot Z95.0 PRESENCE OF CARDIAC PACEMAKER 09/27/2018 CODEY BARILLAS MD Ot Z95.1 PRESENCE OF AORTOCORONARY BYPASS GRAFT 09/27/2018 CODEY BARILLAS MD Ot Z95.5 PRESENCE OF CORONARY ANGIOPLASTY IMPLANT 09/27/2018 CODEY BARILLAS MD Ot E11.9 TYPE 2 DIABETES MELLITUS WITHOUT COMPLIC 09/27/2018 CODEY BARILLAS MD Ot E78.00 PURE HYPERCHOLESTEROLEMIA, UNSPECIFIED 09/27/2018 CODEY BARILLAS MD Ot E87.2 ACIDOSIS 09/27/2018 CODEY BARILLAS MD Ot G47.30 SLEEP APNEA, UNSPECIFIED 09/27/2018 CODEY BARILLAS MD Ot I1 0 ESSENTIAL (PRIMARY) HYPERTENSION 09/27/2018 CODEY BARILLAS MD Ot I25.10 ATHSCL HEART DISEASE OF [place] CORONARY 09/27/2018 CODEY BARILLAS MD Ot I48.91 UNSPECIFIED ATRIAL FIBRILLATION 09/27/2018 CODEY BARILLAS MD Ot J18.1 LOBAR PNEUMONIA, UNSPECIFIED ORGANISM 09/27/2018 CODEY BARILLAS MD Ot J30.2 OTHER SEASONAL ALLERGIC RHINITIS 09/27/2018 CODEY BARILLAS MD Ot 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 09/27/2018 CODEY BARILLAS MD Ot J44.1 CHRONIC OBSTRUCTIVE PULMONARY DISEASE W 09/27/2018 CODEY BARILLAS MD Ot K51.90 ULCERATIVE COLITIS, UNSPECIFIED, WITHOUT 09/27/2018 CODEY BARILLAS MD Ot R04.89 HEMORRHAGE FROM OTHER SITES IN RESPIRATO 09/27/2018 CODEY BARILLAS MD Ot R09.02 HYPOXEMIA 09/27/2018 CODEY BARILLAS MD Ot Z79.01 ENTRY LEVEL ACCOUNT EXECUTIVE (CURRENT) USE OF ANTICOAGULANT 09/27/2018 CODEY BARILLAS MD Ot Z85.820 PERSONAL HISTORY OF MALIGNANT MELANOMA O 09/27/2018 CODEY BARILLAS MD Ot Z86.010 PERSONAL HISTORY OF COLONIC POLYPS 09/27/2018 CODEY BARILLAS MD Ot Z87.891 PERSONAL HISTORY OF NICOTINE DEPENDENCE 09/27/2018 CODEY BARILLAS MD Ot Z95.0 PRESENCE OF CARDIAC PACEMAKER 09/27/2018 CODEY BARILLAS MD Ot Z95.1 PRESENCE OF AORTOCORONARY BYPASS GRAFT 09/27/2018 CODEY BARILLAS MD Ot Z95.5 PRESENCE OF CORONARY ANGIOPLASTY IMPLANT 09/27/2018 CODEY BARILLAS MD Ot E11.9 TYPE 2 DIABETES MELLITUS WITHOUT COMPLIC 09/27/2018 CODEY BARILLAS MD Ot E78.00 PURE HYPERCHOLESTEROLEMIA, UNSPECIFIED 09/27/2018 CODEY BARILLAS MD Ot E87.2 ACIDOSIS 09/27/2018 CODEY BARILLAS MD Ot E87.6 HYPOKALEMIA 09/27/2018 CODEY BARILLAS MD Ot G47.00 INSOMNIA, UNSPECIFIED 09/27/2018 CODEY BARILLAS MD Ot G47.30 SLEEP APNEA, UNSPECIFIED 09/27/2018 CODEY BARILLAS MD Ot G47.33 OBSTRUCTIVE SLEEP APNEA (ADULT) (PEDIATR 09/27/2018 CODEY BARILLAS MD Ot G72.81 CRITICAL ILLNESS MYOPATHY 09/27/2018 CODEY BARILLAS MD Ot 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 09/27/2018 CODEY BARILLAS MD Ot I1 0 ESSENTIAL (PRIMARY) HYPERTENSION 09/27/2018 CODEY BARILLAS MD Ot I11.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 09/27/2018 CODEY BARILLAS MD Ot I25.10 ATHSCL HEART DISEASE OF [place] CORONARY 09/27/2018 CODEY BARILLAS MD Ot I25.810 ATHEROSCLEROSIS OF CABG W/O ANGINA PECTO 09/27/2018 CODEY BARILLAS MD Ot I48.2 CHRONIC ATRIAL FIBRILLATION 09/27/2018 CODEY BARILLAS MD Ot I48.91 UNSPECIFIED ATRIAL FIBRILLATION 09/27/2018 CODEY BARILLAS MD Ot I48.92 UNSPECIFIED ATRIAL FLUTTER 09/27/2018 CODEY BARILLAS MD Ot I50.9 HEART FAILURE, UNSPECIFIED 09/27/2018 CODEY BARILLAS MD Ot J18.1 LOBAR PNEUMONIA, UNSPECIFIED ORGANISM 09/27/2018 CODEY BARILLAS MD Ot J30.2 OTHER SEASONAL ALLERGIC RHINITIS 09/27/2018 CODEY BARILLAS MD Ot J43.9 EMPHYSEMA, UNSPECIFIED 09/27/2018 CODEY BARILLAS MD, Ot 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 09/27/2018 CODEY BARILLAS MD Ot J44.1 CHRONIC OBSTRUCTIVE PULMONARY DISEASE W 09/27/2018 CODEY BARILLAS MD Ot J96.01 ACUTE RESPIRATORY FAILURE WITH HYPOXIA 09/27/2018 CODEY BARILLAS MD, Ot K51.90 ULCERATIVE COLITIS, UNSPECIFIED, WITHOUT 09/27/2018 CODEY BARILLAS MD Ot M25.511 PAIN IN RIGHT SHOULDER 09/27/2018 CODEY BARILLAS MD, Ot N40.0 BENIGN PROSTATIC HYPERPLASIA WITHOUT LOW 09/27/2018 CODEY BARILLAS MD, Ot R04.89 HEMORRHAGE FROM OTHER SITES IN RESPIRATO 09/27/2018 CODEY BARILLAS MD Ot R09.02 HYPOXEMIA 09/27/2018 CODEY BARILLAS MD, Ot T45.515A ADVERSE EFFECT OF ANTICOAGULANTS, INITIA 09/27/2018 CODEY BARILLAS MD, Ot Z79.01 ENTRY LEVEL ACCOUNT EXECUTIVE (CURRENT) USE OF ANTICOAGULANT 09/27/2018 CODEY BARILLAS MD Ot Z85.820 PERSONAL HISTORY OF MALIGNANT MELANOMA O 09/27/2018 CODEY BARILLAS MD Ot Z86.010 PERSONAL HISTORY OF COLONIC POLYPS 09/27/2018 CODEY BARILLAS MD Ot Z87.891 PERSONAL HISTORY OF NICOTINE DEPENDENCE 09/27/2018 CODEY BARILLAS MD Ot Z95.0 PRESENCE OF CARDIAC PACEMAKER 09/27/2018 CODEY BARILLAS MD Ot Z95.1 PRESENCE OF AORTOCORONARY BYPASS GRAFT 09/27/2018 CODEY BARILLAS MD Ot Z95.5 PRESENCE OF CORONARY ANGIOPLASTY IMPLANT 10/10/2018 EULALIA RIVERA KOBI Ot D72.82 9 ELEVATED WHITE BLOOD CELL COUNT, UNSPECI 10/10/2018 EULALIA DO KOBI Ot E78.5 HYPERLIPIDEMIA, UNSPECIFIED 10/10/2018 EULALIA RIVERA KOBI Ot E83.42 HYPOMAGNESEMIA 10/10/2018 EULALIA RIVERA KOBI Ot E87.6 HYPOKALEMIA 10/10/2018 EULALIA RIVERA KOBI Ot G47.00 INSOMNIA, UNSPECIFIED 10/10/2018 EULALIA DO KOBI Ot G47.33 OBSTRUCTIVE SLEEP APNEA (ADULT) (PEDIATR 10/10/2018 EULALIA RIVERA KOBI Ot G72.0 DRUG-INDUCED MYOPATHY 10/10/2018 KOBI ESTEBAN DO Ot G72.81 CRITICAL ILLNESS MYOPATHY 10/10/2018 KOBI ESTEBAN DO Ot I10 ESSENTIAL (PRIMARY) HYPERTENSION 10/10/2018 KOBI ESTEBAN DO Ot I25.10 ATHSCL HEART DISEASE OF [place] CORONARY 10/10/2018 KOBI ESTEBAN DO Ot I25.81 0 ATHEROSCLEROSIS OF CABG W/O ANGINA PECTO 10/10/2018 KOBI ESTEBAN DO Ot I48.2 CHRONIC ATRIAL FIBRILLATION 10/10/2018 KOBI ESTEBAN DO Ot I48.92 UNSPECIFIED ATRIAL FLUTTER 10/10/2018 KOBI ESTEBAN DO Ot J15.0 PNEUMONIA DUE TO [place] PNEUMONIAE 10/10/2018 KOBI ESTEBAN DO Ot J43.9 EMPHYSEMA, UNSPECIFIED 10/10/2018 LORETO ESTEBAN DOI Ot K51.90 ULCERATIVE COLITIS, UNSPECIFIED, WITHOUT 10/10/2018 LORETO ESTEBAN DOI Ot M25.51 1 PAIN IN RIGHT SHOULDER 10/10/2018 KOBI ESTEBAN DO Ot N40.0 BENIGN PROSTATIC HYPERPLASIA WITHOUT LOW 10/10/2018 LORETO ESTEBAN DOI Ot R04.89 HEMORRHAGE FROM OTHER SITES IN RESPIRATO 10/10/2018 KOBI ESTEBAN DO Ot R41.89 OTH SYMPTOMS AND SIGNS W COGNITIVE FUNCT 10/10/2018 KOBI ESTEBAN DO Ot T38.0X 5A ADVERSE EFFECT OF GLUCOCORT/SYNTH ANALOG 10/10/2018 KOBI ESTEBAN DO Ot X50.9X XA OTHER AND UNSPECIFIED OVREXRTN OR STRNOU 10/10/2018 KOBI ESTEBAN DO Ot Z95.0 PRESENCE OF CARDIAC PACEMAKER 10/10/2018 KOBI ESTEBAN DO Ot Z95.1 PRESENCE OF AORTOCORONARY BYPASS GRAFT 10/10/2018 KOBI ESTEBAN DO Ot Z95.5 PRESENCE OF CORONARY ANGIOPLASTY IMPLANT 10/11/2018 KOBI ESTEBAN DO Ot D64.9 ANEMIA, UNSPECIFIED 10/11/2018 KOBI ESTEBAN DO Ot E78.5 HYPERLIPIDEMIA, UNSPECIFIED 10/11/2018 LORETO ESTEBAN DOI Ot E83.42 HYPOMAGNESEMIA 10/11/2018 KOBI ESTEBAN DO Ot E87.6 HYPOKALEMIA 10/11/2018 ESTEBAN DO, KOBI Ot F32.9 MAJOR DEPRESSIVE DISORDER, SINGLE EPISOD 10/11/2018 EULALIA RIVERA, KOBI Ot F41.9 ANXIETY DISORDER, UNSPECIFIED 10/11/2018 EULALIA RIVERA KOBI Ot G47.00 INSOMNIA, UNSPECIFIED 10/11/2018 EULALIA RIVERA KOBI Ot G47.33 OBSTRUCTIVE SLEEP APNEA (ADULT) (PEDIATR 10/11/2018 EULALIA RIVERA KOBI Ot I10 ESSENTIAL (PRIMARY) HYPERTENSION 10/11/2018 EULALIA RIVERA KOBI Ot I25.10 ATHSCL HEART DISEASE OF [place] CORONARY 10/11/2018 EULALIA RIVERA KOBI Ot I48.91 UNSPECIFIED ATRIAL FIBRILLATION 10/11/2018 EULALIA RIVERA KOBI Ot J15.0 PNEUMONIA DUE TO [place]LEBS[place]LLA PNEUMONIAE 10/11/2018 EULALIA RIVERA KOBI Ot J43.9 EMPHYSEMA, UNSPECIFIED 10/11/2018 EULALIA RIVERA KOBI Ot J81.0 ACUTE PULMONARY EDEMA 10/11/2018 EULALIA RIVERA KOBI Ot K51.90 ULCERATIVE COLITIS, UNSPECIFIED, WITHOUT 10/11/2018 EULALIA RIVERA KOBI Ot N40.0 BENIGN PROSTATIC HYPERPLASIA WITHOUT LOW 10/11/2018 EULALIA RIVERA KOBI Ot Z85.82 0 PERSONAL HISTORY OF MALIGNANT MELANOMA O 10/11/2018 EULALIA RIVERA KOBI Ot Z87.89 1 PERSONAL HISTORY OF NICOTINE DEPENDENCE 10/11/2018 EULALIA RIVERA KOBI Ot Z95.0 PRESENCE OF CARDIAC PACEMAKER 10/11/2018 EULALIA RIVERA KOBI Ot Z95.1 PRESENCE OF AORTOCORONARY BYPASS GRAFT 10/11/2018 EULALIA IRVERA KOBI Ot Z95.5 PRESENCE OF CORONARY ANGIOPLASTY IMPLANT 10/15/2018 ERAN STEPHENSON, CODEY Bishop Ot E09.9 DRUG OR CHEMICAL INDUCED DIABETES MELLIT 10/15/2018 ERAN STEPHENSON, CODEY Bishop Ot E78.00 PURE HYPERCHOLESTEROLEMIA, UNSPECIFIED 10/15/2018 CODEY BARILLAS MD Ot E83.42 HYPOMAGNESEMIA 10/15/2018 CODEY BARILLAS MD Ot E87.6 HYPOKALEMIA 10/15/2018 CODEY BARILLAS MD Ot G47.00 INSOMNIA, UNSPECIFIED 10/15/2018 CODEY BARILLAS MD Ot G47.30 SLEEP APNEA, UNSPECIFIED 10/15/2018 CODEY BARILLAS MD Ot G47.33 OBSTRUCTIVE SLEEP APNEA (ADULT) (PEDIATR 10/15/2018 CODEY BARILLAS MD Ot G72.81 CRITICAL ILLNESS MYOPATHY 10/15/2018 CODEY BARILLAS MD, Ot I1 0 ESSENTIAL (PRIMARY) HYPERTENSION 10/15/2018 CODEY BARILLAS MD Ot I25.810 ATHEROSCLEROSIS OF CABG W/O ANGINA PECTO 10/15/2018 CODEY BARILLAS MD Ot I48.91 UNSPECIFIED ATRIAL FIBRILLATION 10/15/2018 CODEY BARILLAS MD Ot J15.0 PNEUMONIA DUE TO KLEBSIELLA PNEUMONIAE 10/15/2018 CODEY BARILLAS MD Ot J30.2 OTHER SEASONAL ALLERGIC RHINITIS 10/15/2018 CODEY BARILLAS MD Ot J43.9 EMPHYSEMA, UNSPECIFIED 10/15/2018 CODEY BARILLAS MD Ot K51.90 ULCERATIVE COLITIS, UNSPECIFIED, WITHOUT 10/15/2018 CODEY BARILLAS MD Ot N40.0 BENIGN PROSTATIC HYPERPLASIA WITHOUT LOW 10/15/2018 CODEY BARILLAS MD Ot R13.10 DYSPHAGIA, UNSPECIFIED 10/15/2018 CODEY BARILLAS MD Ot R53.1 WEAKNESS 10/15/2018 CODEY BARILLAS MD Ot R53.81 OTHER MALAISE 10/15/2018 CODEY BARILLAS MD Ot T38.0X5A ADVERSE EFFECT OF GLUCOCORT/SYNTH ANALOG 10/15/2018 CODEY BARILLAS MD Ot Z6 6 DO NOT RESUSCITATE 10/15/2018 CODEY BARILLAS MD Ot Z87.891 PERSONAL HISTORY OF NICOTINE DEPENDENCE 10/15/2018 CODEY BARILLAS MD Ot Z95.0 PRESENCE OF CARDIAC PACEMAKER 10/15/2018 CODEY BARILLAS MD Ot Z95.1 PRESENCE OF AORTOCORONARY BYPASS GRAFT 10/15/2018 CODEY BARILLAS MD Ot Z95.5 PRESENCE OF CORONARY ANGIOPLASTY IMPLANT 10/16/2018 CODEY BARILLAS MD Ot E09.9 DRUG OR CHEMICAL INDUCED DIABETES MELLIT 10/16/2018 CODEY BARILLAS MD Ot E78.00 PURE HYPERCHOLESTEROLEMIA, UNSPECIFIED 10/16/2018 CODEY BARILLAS MD Ot E83.42 HYPOMAGNESEMIA 10/16/2018 CODEY BARILLAS MD Ot E87.6 HYPOKALEMIA 10/16/2018 CODEY BARILLAS MD Ot G47.00 INSOMNIA, UNSPECIFIED 10/16/2018 CODEY BARILLAS MD Ot G47.30 SLEEP APNEA, UNSPECIFIED 10/16/2018 CODEY BARILLAS MD Ot G47.33 OBSTRUCTIVE SLEEP APNEA (ADULT) (PEDIATR 10/16/2018 CODEY BARILLAS MD Ot G72.81 CRITICAL ILLNESS MYOPATHY 10/16/2018 CODEY BARILLAS MD Ot I1 0 ESSENTIAL (PRIMARY) HYPERTENSION 10/16/2018 CODEY BARILLAS MD Ot I25.810 ATHEROSCLEROSIS OF CABG W/O ANGINA PECTO 10/16/2018 CODEY BARILLAS MD Ot I48.91 UNSPECIFIED ATRIAL FIBRILLATION 10/16/2018 CODEY BARILLAS MD Ot J15.0 PNEUMONIA DUE TO KLEBSIELLA PNEUMONIAE 10/16/2018 CODEY BARILLAS MD Ot J30.2 OTHER SEASONAL ALLERGIC RHINITIS 10/16/2018 CODEY BARILLAS MD Ot J43.9 EMPHYSEMA, UNSPECIFIED 10/16/2018 CODEY BARILLAS MD Ot K51.90 ULCERATIVE COLITIS, UNSPECIFIED, WITHOUT 10/16/2018 CODEY BARILLAS MD Ot N40.0 BENIGN PROSTATIC HYPERPLASIA WITHOUT LOW 10/16/2018 CODEY BARILLAS MD Ot R13.10 DYSPHAGIA, UNSPECIFIED 10/16/2018 CODEY BARILLAS MD Ot R53.1 WEAKNESS 10/16/2018 CODEY BARILLAS MD Ot R53.81 OTHER MALAISE 10/16/2018 CODEY BARILLAS MD Ot T38.0X5A ADVERSE EFFECT OF GLUCOCORT/SYNTH ANALOG 10/16/2018 CODEY BARILLAS MD Ot Z6 6 DO NOT RESUSCITATE 10/16/2018 CODEY BARILLAS MD Ot Z87.891 PERSONAL HISTORY OF NICOTINE DEPENDENCE 10/16/2018 CODEY BARILLAS MD Ot Z95.0 PRESENCE OF CARDIAC PACEMAKER 10/16/2018 CODEY BARILLAS MD Ot Z95.1 PRESENCE OF AORTOCORONARY BYPASS GRAFT 10/16/2018 CODEY BARILLAS MD Ot Z95.5 PRESENCE OF CORONARY ANGIOPLASTY IMPLANT 10/25/2018 CODEY BARILLAS MD Ot E09.9 DRUG OR CHEMICAL INDUCED DIABETES MELLIT 10/25/2018 CODEY BARILLAS MD Ot E78.00 PURE HYPERCHOLESTEROLEMIA, UNSPECIFIED 10/25/2018 ERAN STEPHENSON, CODEY Bishop Ot E83.42 HYPOMAGNESEMIA 10/25/2018 CODEY BARILLAS MD Ot E87.6 HYPOKALEMIA 10/25/2018 ERAN STEPHENSON, CODEY Bishop Ot G47.00 INSOMNIA, UNSPECIFIED 10/25/2018 CODEY BARILLAS MD Ot G47.30 SLEEP APNEA, UNSPECIFIED 10/25/2018 CODEY BARILLAS MD Ot G47.33 OBSTRUCTIVE SLEEP APNEA (ADULT) (PEDIATR 10/25/2018 CODEY BARILLAS MD Ot G72.81 CRITICAL ILLNESS MYOPATHY 10/25/2018 CODEY BARILLAS MD Ot I1 0 ESSENTIAL (PRIMARY) HYPERTENSION 10/25/2018 CODEY BARILLAS MD Ot I25.810 ATHEROSCLEROSIS OF CABG W/O ANGINA PECTO 10/25/2018 CODEY BARILLAS MD Ot I48.91 UNSPECIFIED ATRIAL FIBRILLATION 10/25/2018 CODEY BARILLAS MD Ot J15.0 PNEUMONIA DUE TO KLEBSIELLA PNEUMONIAE 10/25/2018 CODEY BARILLAS MD Ot J30.2 OTHER SEASONAL ALLERGIC RHINITIS 10/25/2018 CODEY BARILLAS MD Ot J43.9 EMPHYSEMA, UNSPECIFIED 10/25/2018 CODEY BARILLAS MD Ot K51.90 ULCERATIVE COLITIS, UNSPECIFIED, WITHOUT 10/25/2018 CODEY BARILLAS MD Ot N40.0 BENIGN PROSTATIC HYPERPLASIA WITHOUT LOW 10/25/2018 CODEY BARILLAS MD Ot R13.10 DYSPHAGIA, UNSPECIFIED 10/25/2018 CODEY BARILLAS MD Ot R53.1 WEAKNESS 10/25/2018 CODEY BARILLAS MD Ot R53.81 OTHER MALAISE 10/25/2018 CODEY BARILLAS MD Ot T38.0X5A ADVERSE EFFECT OF GLUCOCORT/SYNTH ANALOG 10/25/2018 CODEY BARILLAS MD Ot Z6 6 DO NOT RESUSCITATE 10/25/2018 CODEY BARILLAS MD Ot Z87.891 PERSONAL HISTORY OF NICOTINE DEPENDENCE 10/25/2018 CODEY BARILLAS MD Ot Z95.0 PRESENCE OF CARDIAC PACEMAKER 10/25/2018 CODEY BARILLAS MD Ot Z95.1 PRESENCE OF AORTOCORONARY BYPASS GRAFT 10/25/2018 ERAN MD, CODEY A Ot Z95.5 PRESENCE OF CORONARY ANGIOPLASTY IMPLANT 10/25/2018 CODEY BARILLAS MD Ot E09.9 DRUG OR CHEMICAL INDUCED DIABETES MELLIT 10/25/2018 CODEY BARILLAS MD Ot E78.00 PURE HYPERCHOLESTEROLEMIA, UNSPECIFIED 10/25/2018 CODEY BARILLAS MD Ot E83.42 HYPOMAGNESEMIA 10/25/2018 CODEY BARILLAS MD Ot E87.6 HYPOKALEMIA 10/25/2018 CODEY BARILLAS MD Ot G47.00 INSOMNIA, UNSPECIFIED 10/25/2018 CODEY BARILLAS MD Ot G47.30 SLEEP APNEA, UNSPECIFIED 10/25/2018 CODEY BARILLAS MD Ot G47.33 OBSTRUCTIVE SLEEP APNEA (ADULT) (PEDIATR 10/25/2018 CODEY BARILLAS MD Ot G72.81 CRITICAL ILLNESS MYOPATHY 10/25/2018 CODEY BARILLAS MD Ot I1 0 ESSENTIAL (PRIMARY) HYPERTENSION 10/25/2018 CODEY BARILLAS MD Ot I25.810 ATHEROSCLEROSIS OF CABG W/O ANGINA PECTO 10/25/2018 CODEY BARILLAS MD Ot I26.99 OTHER PULMONARY EMBOLISM WITHOUT ACUTE C 10/25/2018 CODEY BARILLAS MD Ot I48.91 UNSPECIFIED ATRIAL FIBRILLATION 10/25/2018 CODEY BARILLAS MD Ot J15.0 PNEUMONIA DUE TO KLEBSIELLA PNEUMONIAE 10/25/2018 CODEY BARILLAS MD Ot J30.2 OTHER SEASONAL ALLERGIC RHINITIS 10/25/2018 CODEY BARILLAS MD Ot J43.9 EMPHYSEMA, UNSPECIFIED 10/25/2018 CODEY BARILLAS MD Ot K51.90 ULCERATIVE COLITIS, UNSPECIFIED, WITHOUT 10/25/2018 CODEY BARILLAS MD Ot N40.0 BENIGN PROSTATIC HYPERPLASIA WITHOUT LOW 10/25/2018 OCDEY BARILLAS MD Ot R13.10 DYSPHAGIA, UNSPECIFIED 10/25/2018 CODEY BARILLAS MD Ot R53.1 WEAKNESS 10/25/2018 CODEY BARILLAS MD Ot R53.81 OTHER MALAISE 10/25/2018 CODEY BARILLAS MD Ot T38.0X5A ADVERSE EFFECT OF GLUCOCORT/SYNTH ANALOG 10/25/2018 CODEY BARILLAS MD Ot Z6 6 DO NOT RESUSCITATE 10/25/2018 CODEY BARILLAS MD Ot Z87.891 PERSONAL HISTORY OF NICOTINE DEPENDENCE 10/25/2018 CODEY BARILLAS MD Ot Z95.0 PRESENCE OF CARDIAC PACEMAKER 10/25/2018 CODEY BARILLAS MD Ot Z95.1 PRESENCE OF AORTOCORONARY BYPASS GRAFT 10/25/2018 CODEY BARILLAS MD Ot Z95.5 PRESENCE OF CORONARY ANGIOPLASTY IMPLANT 12/31/2018 CODEY BARILLAS MD Ot J44.9 CHRONIC OBSTRUCTIVE PULMONARY DISEASE, U 01/02/2019 CODEY BARILLAS MD Ot J44.9 CHRONIC OBSTRUCTIVE PULMONARY DISEASE, U 01/09/2019 CODEY BARILLAS MD Ot J44.9 CHRONIC OBSTRUCTIVE PULMONARY DISEASE, U 01/09/2019 CODEY BARILLAS MD Ot J44.9 CHRONIC OBSTRUCTIVE PULMONARY DISEASE, U 01/14/2019 CODEY BARILLAS MD Ot J44.9 CHRONIC OBSTRUCTIVE PULMONARY DISEASE, U 01/16/2019 CODEY BARILLAS MD Ot J44.9 CHRONIC OBSTRUCTIVE PULMONARY DISEASE, U 01/21/2019 CODEY BARILLAS MD Ot J44.9 CHRONIC OBSTRUCTIVE PULMONARY DISEASE, U 01/21/2019 CODEY BARILLAS MD Ot J44.9 CHRONIC OBSTRUCTIVE PULMONARY DISEASE, U 01/23/2019 CODEY BARILLAS MD Ot J44.9 CHRONIC OBSTRUCTIVE PULMONARY DISEASE, U 01/28/2019 CODEY BARILLAS MD Ot J44.9 CHRONIC OBSTRUCTIVE PULMONARY DISEASE, U 01/30/2019 CODEY BARILLAS MD Ot J44.9 CHRONIC OBSTRUCTIVE PULMONARY DISEASE, U 02/04/2019 KEO LANG BIOLOGICAL ENGINEER Ot E27.8 OTHER SPECIFIED DISORDERS OF ADRENAL GLA 02/04/2019 KEO LANG BIOLOGICAL ENGINEER Ot I70.0 ATHEROSCLEROSIS OF AORTA 02/04/2019 KEO LANG BIOLOGICAL ENGINEER Ot J43.9 EMPHYSEMA, UNSPECIFIED 02/04/2019 KEO LANG BIOLOGICAL ENGINEER Ot Z90.49 ACQUIRED ABSENCE OF OTHER SPECIFIED PART 02/04/2019 KEO LANG BIOLOGICAL ENGINEER Ot Z95.0 PRESENCE OF CARDIAC PACEMAKER 02/04/2019 KEO LANG BIOLOGICAL ENGINEER Ot Z95.5 PRESENCE OF CORONARY ANGIOPLASTY IMPLANT 02/04/2019 CODEY BARILLAS MD Ot J44.9 CHRONIC OBSTRUCTIVE PULMONARY DISEASE, U 02/06/2019 ERAN STEPHENSON, CDOEY A Ot J44.9 CHRONIC OBSTRUCTIVE PULMONARY DISEASE, U 02/11/2019 ERAN STEPHENSON, CODEY A Ot J44.9 CHRONIC OBSTRUCTIVE PULMONARY DISEASE, U 02/11/2019 ERAN STEPHENSON, CODEY A Ot J44.9 CHRONIC OBSTRUCTIVE PULMONARY DISEASE, U 02/13/2019 ERAN STEPHENSON, CODEY A Ot J44.9 CHRONIC OBSTRUCTIVE PULMONARY DISEASE, U 02/13/2019 ERAN STEPHENSON, CODEY A Ot J44.9 CHRONIC OBSTRUCTIVE PULMONARY DISEASE, U 02/18/2019 ERAN STEPHENSON, CODEY A Ot J44.9 CHRONIC OBSTRUCTIVE PULMONARY DISEASE, U 02/18/2019 ERAN STEPHENSON, CODEY A Ot J44.9 CHRONIC OBSTRUCTIVE PULMONARY DISEASE, U 02/25/2019 ERAN STEPHENSON, CODEY A Ot J44.9 CHRONIC OBSTRUCTIVE PULMONARY DISEASE, U 03/04/2019 ERAN STEPHENSON, CODEY A Ot J44.9 CHRONIC OBSTRUCTIVE PULMONARY DISEASE, U 03/04/2019 ERAN STEPHENSON, CODEY A Ot J44.9 CHRONIC OBSTRUCTIVE PULMONARY DISEASE, U 03/25/2019 ERAN STEPHENSON, CODEY A Ot J44.9 CHRONIC OBSTRUCTIVE PULMONARY DISEASE, U 03/27/2019 ERAN STEPHENSON, CODEY A Ot J44.9 CHRONIC OBSTRUCTIVE PULMONARY DISEASE, U Procedures Code Description Performed By Per ashely On 37.22 LEFT HEART CARDIAC CATH 10/07/2011 51.23 LAPA ROSCOPIC CHOLECYSTECTOMY 10/07/2011 87.53 INTR AOPER CHOLANGIOGRAM 10/07/2011 88.53 LT H EART ANGIOCARDIOGRAM 10/07/2011 88.56 HUE LUANA ARTERIOGR-2 CATH 10/07/[id number] BLANCO OF RIGHT MIDDLE LUNG LOBE, ENDO 09/04/2018 [id number] EX TRACTION OF RIGHT MIDDLE LOBE BRONCHUS 09/04/[id number] BLANCO OF RIGHT MAIN BRONCHUS, ENDO, D 09/21/[id number] BLANCO OF RIGHT MAIN BRONCHUS, ENDO 09/21/[id number] BLANCO OF LEFT MAIN BRONCHUS, ENDO, DI 09/21/[id number] BLANCO OF LEFT MAIN BRONCHUS, ENDO 09/21/[id number] AINAGE OF RIGHT MIDDLE LUNG LOBE, ENDO 09/21/[id number] BLANCO OF RIGHT MIDDLE LUNG LOBE, ENDO 09/21/2018 [id number] IN SERTION OF ENDOTRACHEAL AIRWAY INTO TR 09/21/2018 [id number] RE SPIRATORY VENTILATION, 24- 96 CONSECUTI 09/21/[id number] BLANCO OF RIGHT MAIN BRONCHUS, ENDO, D 09/24/[id number] BLANCO OF LEFT MAIN BRONCHUS, ENDO, DI 09/24/[id number] BLANCO OF RIGHT MIDDLE LUNG LOBE, ENDO 09/24/2018 Results Test Result Range Methicillin resistant Staphylococcus aur eus (MRSA) screening culture - 12/08/15 14:30 Methicillin resistant Staphylococcus aureus (MRSA) scr eening culture NEG NRG Complete blood count (CBC) with automate d white blood cell (WBC) differential - 12/08/15 14:35 Blood leukocytes automated count (number/volume) 8.5 10*3/uL 4.3-11.0 Blood erythrocytes automated count (number/volume) 4.52 10*6/uL 4.35-5.85 Venous blood hemoglobin measurement (mass/volume) 14.2 g/dL 13.3-17.7 Blood hematocrit (volume fraction) 41 % 40-54 Automated erythrocyte mean corpuscular volume 90 [ foz_us] 80-99 Automated erythrocyte mean corpuscular h emoglobin (mass per erythrocyte) 31 pg 25-34 Automated erythrocyte mean corpuscular h emoglobin concentration measurement (mass/volume) 35 g/dL 32-36 Automated erythrocyte distribution width ratio 13. 7 % 10.0- 14.5 Automated blood platelet count (count/volume) 208 10*3/uL 130-400 Automated blood platelet mean volume measurement 10.2 [foz_us] 7.4-10.4 Automated blood neutrophils/100 leukocytes 60 % 42-75 Automated blood lymphocytes/100 leukocytes 23 % 12-44 Blood monocytes/100 leukocytes 10 % 0-12 Automated blood eosinophils/100 leukocytes 7 % 0-10 Automated blood basophils/100 leukocytes 0 % 0-10 Blood neutrophils automated count (number/volume) 5.1 10*3 1.8-7.8 Blood lymphocytes automated count (number/volume) 2.0 10*3 1.0-4.0 Blood monocytes automated count (number/volume) 0. 8 10*3 0.0-1.0 Automated eosinophil count 0.6 10*3/uL 0 .0-0.3 Automated blood basophil count (count/volume) 0.0 10*3/uL 0.0-0.1 Whole blood basic metabolic panel - 10/15 14:35 Serum or plasma sodium measurement (moles/volume) 140 mmol/L 135-145 Serum or plasma potassium measurement (moles/volume) 3.9 mmol/L 3.6-5.0 Serum or plasma chloride measurement (moles/volume) 106 mmol/L 98-107 Carbon dioxide 24 mmol/L 21-32 Serum or plasma anion gap determination (moles/volume) 10 mmol/L 5-14 Serum or plasma urea nitrogen measurement (mass/volume ) 16 mg/dL 7-18 Serum or plasma creatinine measurement (mass/volume) 1.14 mg/dL 0.60-1.30 Serum or plasma urea nitrogen/creatinine mass ratio 14 NRG Serum or plasma creatinine measurement w ith calculation of estimated glomerular filtration rate > NRG Serum or plasma glucose measurement (mass/volume) 144 mg/dL 70-105 Serum or plasma calcium measurement (mass/volume) 9.0 mg/dL 8.5-10.1 Methicillin resistant Staphylococcus aur eus (MRSA) screening culture - 12/17/15 12:12 Methicillin resistant Staphylococcus aureus (MRSA) scr eening culture NEG [facility] Influenza virus A and B antigen detectio n - 04/03/16 11:54 FLU RESULT NEGATIVE FOR INFLUENZA A AND B ANTIGENS BY IA NRG Methicillin resistant Staphylococcus aur eus (MRSA) screening culture - 06/08/16 13:30 Methicillin resistant Staphylococcus aureus (MRSA) scr eening culture NEG NR Whole blood basic metabolic panel - 10/16 14:01 Serum or plasma sodium measurement (moles/volume) 138 mmol/L 135-145 Serum or plasma potassium measurement (moles/volume) 4.0 mmol/L 3.6-5.0 Serum or plasma chloride measurement (moles/volume) 106 mmol/L 98-107 Carbon dioxide 20 mmol/L 21-32 Serum or plasma anion gap determination (moles/volume) 12 mmol/L 5-14 Serum or plasma urea nitrogen measurement (mass/volume ) 13 mg/dL 7-18 Serum or plasma creatinine measurement (mass/volume) 1.00 mg/dL 0.60-1.30 Serum or plasma urea nitrogen/creatinine mass ratio 13 NRG Serum or plasma creatinine measurement w ith calculation of estimated glomerular filtration rate > NRG Serum or plasma glucose measurement (mass/volume) 137 mg/dL 70-105 Serum or plasma calcium measurement (mass/volume) 8.6 mg/dL 8.5-10.1 Serum or plasma troponin i.cardiac measu rement (mass/volume) - 02/06/17 14:01 Serum or plasma troponin i.cardiac measurement (mass/v olume) < ng/mL <0.30 Myoglobin, serum - 02/06/17 14:01 Myoglobin, serum 32.1 ng/mL 10.0-92.0 Complete blood count (CBC) with automate d white blood cell (WBC) differential - 04/11/17 21:05 Blood leukocytes automated count (number/volume) 14.8 10*3/uL 4.3-11.0 Blood erythrocytes automated count (number/volume) 3.78 10*6/uL 4.35-5.85 Venous blood hemoglobin measurement (mass/volume) 11.6 g/dL 13.3-17.7 Blood hematocrit (volume fraction) 34 % 40-54 Automated erythrocyte mean corpuscular volume 89 [ foz_us] 80-99 Automated erythrocyte mean corpuscular h emoglobin (mass per erythrocyte) 31 pg 25-34 Automated erythrocyte mean corpuscular h emoglobin concentration measurement (mass/volume) 34 g/dL 32-36 Automated erythrocyte distribution width ratio 13. 9 % 10.0- 14.5 Automated blood platelet count (count/volume) 207 10*3/uL 130-400 Automated blood platelet mean volume measurement 10.1 [foz_us] 7.4-10.4 Automated blood neutrophils/100 leukocytes 77 % 42-75 Automated blood lymphocytes/100 leukocytes 11 % 12-44 Blood monocytes/100 leukocytes 9 % 0-12 Automated blood eosinophils/100 leukocytes 3 % 0-10 Automated blood basophils/100 leukocytes 0 % 0-10 Blood neutrophils automated count (number/volume) 11.5 10*3 1.8-7.8 Blood lymphocytes automated count (number/volume) 1.7 10*3 1.0-4.0 Blood monocytes automated count (number/volume) 1. 3 10*3 0.0-1.0 Automated eosinophil count 0.4 10*3/uL 0 .0-0.3 Automated blood basophil count (count/volume) 0.0 10*3/uL 0.0-0.1 Blood lactic acid measurement (moles/vol ume) - 04/11/17 21:05 Blood lactic acid measurement (moles/volume) 2.00 mmol/L 0.50-2.00 PT panel in platelet poor plasma by coag ulation assay - 04/11/17 21:05 Prothrombin time (PT) in platelet poor plasma by coagu lation assay 21.8 s 12.2-14.7 INR in platelet poor plasma or blood by coagulation as say 1.9 0.8-1.4 Activated partial thromboplastin time (a PTT) in platelet poor plasma bycoagulation assay - 04/11/17 21:05 Activated partial thromboplastin time (a PTT) in platelet poor plasma bycoagulation assay 62 s 24-35 Blood manual differential performed dete ction - 04/11/17 21:05 Blood monocytes/100 leukocytes 6 % NRG Manual blood segmented neutrophils/100 leukocytes 68 % NRG Blood band neutrophils/100 leukocytes 0 % NRG Manual blood lymphocytes/100 leukocytes 20 % NRG Manual eosinophils/100 leukocytes in nose 5 % NRG Manual blood basophils/100 leukocytes 1 % NRG Blood erythrocyte morphology finding identification NORMAL NR Comprehensive metabolic panel - 04/11/17 21:05 Serum or plasma sodium measurement (moles/volume) 132 mmol/L 135-145 Serum or plasma potassium measurement (moles/volume) 4.2 mmol/L 3.6-5.0 Serum or plasma chloride measurement (moles/volume) 98 mmol/L 98-107 Carbon dioxide 22 mmol/L 21-32 Serum or plasma anion gap determination (moles/volume) 12 mmol/L 5-14 Serum or plasma urea nitrogen measurement (mass/volume ) 27 mg/dL 7-18 Serum or plasma creatinine measurement (mass/volume) 1.73 mg/dL 0.60-1.30 Serum or plasma urea nitrogen/creatinine mass ratio 16 NRG Serum or plasma creatinine measurement w ith calculation of estimated glomerular filtration rate 39 NRG Serum or plasma glucose measurement (mass/volume) 157 mg/dL 70-105 Serum or plasma calcium measurement (mass/volume) 9.0 mg/dL 8.5-10.1 Serum or plasma total bilirubin measurement (mass/volu me) 1.3 mg/dL 0.1-1.0 Serum or plasma alkaline phosphatase donnell surement (enzymatic activity/volume) 75 U/L 40-136 Serum or plasma aspartate aminotransfera se measurement (enzymatic activity/volume) 23 U/L 5-34 Serum or plasma alanine aminotransferase measurement (enzymatic activity/volume) 17 U/L 0-55 Serum or plasma protein measurement (mass/volume) 7.3 g/dL 6.4-8.2 Serum or plasma albumin measurement (mass/volume) 3.5 g/dL 3.2-4.5 Serum or plasma troponin i.cardiac measu rement (mass/volume) - 04/11/17 21:05 Serum or plasma troponin i.cardiac measurement (mass/v olume) < ng/mL <0.30 Bacterial blood culture - 04/11/17 21:05 Bacterial blood culture NG NRG Influenza virus A and B antigen detectio n - 04/11/17 21:09 FLU RESULT NEGATIVE FOR INFLUENZA A AND B ANTIGENS BY IA NRG Bacterial blood culture - 04/11/17 21:10 Bacterial blood culture NG NRG Complete urinalysis with reflex to cultu re - 04/11/17 21:50 Urine color determination YELLOW NRG Urine clarity determination CLEAR NR G Urine pH measurement by test strip 5 5-9 Specific gravity of urine by test strip 1.025 1.016-1.022 Urine protein assay by test strip, semi-quantitative 1+ NEGATIVE Urine glucose detection by automated test strip NE GATIVE NEGATIVE Erythrocytes detection in urine sediment by light micr oscopy NEGATIVE NEGATIVE Urine ketones detection by automated test strip NE GATIVE NEGATIVE Urine nitrite detection by test strip NEGATIVE NEGATIVE Urine total bilirubin detection by test strip NEGA TIVE NEGATIVE Urine urobilinogen measurement by automated test strip (mass/volume) 4 mg/dL NORMAL Urine leukocyte esterase detection by dipstick 1+ NEGATIVE Automated urine sediment erythrocyte cou nt by microscopy (number/high power field) NONE NRG Automated urine sediment leukocyte count by microscopy (number/high power field) [HPF] NRG Bacteria detection in urine sediment by light microsco py NEGATIVE NRG Crystals detection in urine sediment by light microsco py NONE NRG Casts detection in urine sediment by light microscopy PRESENT NRG Mucus detection in urine sediment by light microscopy SMALL NRG Complete urinalysis with reflex to culture NO NRG Hyaline casts detection in urine sediment by light neal roscopy 5-10 NRG Complete blood count (CBC) with automate d white blood cell (WBC) differential - 04/12/17 04:20 Blood leukocytes automated count (number/volume) 12.6 10*3/uL 4.3-11.0 Blood erythrocytes automated count (number/volume) 3.49 10*6/uL 4.35-5.85 Venous blood hemoglobin measurement (mass/volume) 10.7 g/dL 13.3-17.7 Blood hematocrit (volume fraction) 31 % 40-54 Automated erythrocyte mean corpuscular volume 90 [ foz_us] 80-99 Automated erythrocyte mean corpuscular h emoglobin (mass per erythrocyte) 31 pg 25-34 Automated erythrocyte mean corpuscular h emoglobin concentration measurement (mass/volume) 34 g/dL 32-36 Automated erythrocyte distribution width ratio 13. 8 % 10.0- 14.5 Automated blood platelet count (count/volume) 179 10*3/uL 130-400 Automated blood platelet mean volume measurement 10.2 [foz_us] 7.4-10.4 Automated blood neutrophils/100 leukocytes 74 % 42-75 Automated blood lymphocytes/100 leukocytes 15 % 12-44 Blood monocytes/100 leukocytes 8 % 0-12 Automated blood eosinophils/100 leukocytes 2 % 0-10 Automated blood basophils/100 leukocytes 0 % 0-10 Blood neutrophils automated count (number/volume) 9.3 10*3 1.8-7.8 Blood lymphocytes automated count (number/volume) 1.9 10*3 1.0-4.0 Blood monocytes automated count (number/volume) 1. 0 10*3 0.0-1.0 Automated eosinophil count 0.3 10*3/uL 0 .0-0.3 Automated blood basophil count (count/volume) 0.0 10*3/uL 0.0-0.1 Blood lactic acid measurement (moles/vol ume) - 04/12/17 04:20 Blood lactic acid measurement (moles/volume) 1.88 mmol/L 0.50-2.00 Comprehensive metabolic panel - 04/12/17 04:20 Serum or plasma sodium measurement (moles/volume) 132 mmol/L 135-145 Serum or plasma potassium measurement (moles/volume) 3.8 mmol/L 3.6-5.0 Serum or plasma chloride measurement (moles/volume) 102 mmol/L 98-107 Carbon dioxide 20 mmol/L 21-32 Serum or plasma anion gap determination (moles/volume) 10 mmol/L 5-14 Serum or plasma urea nitrogen measurement (mass/volume ) 27 mg/dL 7-18 Serum or plasma creatinine measurement (mass/volume) 1.59 mg/dL 0.60-1.30 Serum or plasma urea nitrogen/creatinine mass ratio 17 NRG Serum or plasma creatinine measurement w ith calculation of estimated glomerular filtration rate 43 NRG Serum or plasma glucose measurement (mass/volume) 143 mg/dL 70-105 Serum or plasma calcium measurement (mass/volume) 8.4 mg/dL 8.5-10.1 Serum or plasma total bilirubin measurement (mass/volu me) 1.0 mg/dL 0.1-1.0 Serum or plasma alkaline phosphatase donnell surement (enzymatic activity/volume) 72 U/L 40-136 Serum or plasma aspartate aminotransfera se measurement (enzymatic activity/volume) 21 U/L 5-34 Serum or plasma alanine aminotransferase measurement (enzymatic activity/volume) 14 U/L 0-55 Serum or plasma protein measurement (mass/volume) 6.7 g/dL 6.4-8.2 Serum or plasma albumin measurement (mass/volume) 3.2 g/dL 3.2-4.5 Serum or plasma lithium measurement (mol es/volume) - 04/12/17 09:39 BNP level 95.6 pg/mL <100.0 Automated blood complete blood count (he mogram) panel - 04/13/17 04:23 Blood leukocytes automated count (number/volume) 15.0 10*3/uL 4.3-11.0 Blood erythrocytes automated count (number/volume) 3.45 10*6/uL 4.35-5.85 Venous blood hemoglobin measurement (mass/volume) 10.5 g/dL 13.3-17.7 Blood hematocrit (volume fraction) 31 % 40-54 Automated erythrocyte mean corpuscular volume 90 [ foz_us] 80-99 Automated erythrocyte mean corpuscular h emoglobin (mass per erythrocyte) 30 pg 25-34 Automated erythrocyte mean corpuscular h emoglobin concentration measurement (mass/volume) 34 g/dL 32-36 Automated erythrocyte distribution width ratio 14. 1 % 10.0- 14.5 Automated blood platelet count (count/volume) 169 10*3/uL 130-400 Automated blood platelet mean volume measurement 9.9 [foz_us] 7.4-10.4 Comprehensive metabolic panel - 04/13/17 04:23 Serum or plasma sodium measurement (moles/volume) 140 mmol/L 135-145 Serum or plasma potassium measurement (moles/volume) 3.7 mmol/L 3.6-5.0 Serum or plasma chloride measurement (moles/volume) 108 mmol/L 98-107 Carbon dioxide 19 mmol/L 21-32 Serum or plasma anion gap determination (moles/volume) 13 mmol/L 5-14 Serum or plasma urea nitrogen measurement (mass/volume ) 23 mg/dL 7-18 Serum or plasma creatinine measurement (mass/volume) 1.17 mg/dL 0.60-1.30 Serum or plasma urea nitrogen/creatinine mass ratio 20 NRG Serum or plasma creatinine measurement w ith calculation of estimated glomerular filtration rate > NRG Serum or plasma glucose measurement (mass/volume) 198 mg/dL 70-105 Serum or plasma calcium measurement (mass/volume) 8.9 mg/dL 8.5-10.1 Serum or plasma total bilirubin measurement (mass/volu me) 0.8 mg/dL 0.1-1.0 Serum or plasma alkaline phosphatase donnell surement (enzymatic activity/volume) 77 U/L 40-136 Serum or plasma aspartate aminotransfera se measurement (enzymatic activity/volume) 42 U/L 5-34 Serum or plasma alanine aminotransferase measurement (enzymatic activity/volume) 21 U/L 0-55 Serum or plasma protein measurement (mass/volume) 6.8 g/dL 6.4-8.2 Serum or plasma albumin measurement (mass/volume) 3.2 g/dL 3.2-4.5 Magnesium - 04/13/17 04:23 Magnesium 2.1 mg/dL 1.8-2.4 Automated blood complete blood count (he mogram) panel - 04/14/17 01:59 Blood leukocytes automated count (number/volume) 19.3 10*3/uL 4.3-11.0 Blood erythrocytes automated count (number/volume) 3.78 10*6/uL 4.35-5.85 Venous blood hemoglobin measurement (mass/volume) 11.5 g/dL 13.3-17.7 Blood hematocrit (volume fraction) 34 % 40-54 Automated erythrocyte mean corpuscular volume 89 [ foz_us] 80-99 Automated erythrocyte mean corpuscular h emoglobin (mass per erythrocyte) 30 pg 25-34 Automated erythrocyte mean corpuscular h emoglobin concentration measurement (mass/volume) 34 g/dL 32-36 Automated erythrocyte distribution width ratio 14. 3 % 10.0- 14.5 Automated blood platelet count (count/volume) 237 10*3/uL 130-400 Automated blood platelet mean volume measurement 10.0 [foz_us] 7.4-10.4 Comprehensive metabolic panel - 04/14/17 01:59 Serum or plasma sodium measurement (moles/volume) 140 mmol/L 135-145 Serum or plasma potassium measurement (moles/volume) 4.1 mmol/L 3.6-5.0 Serum or plasma chloride measurement (moles/volume) 108 mmol/L 98-107 Carbon dioxide 20 mmol/L 21-32 Serum or plasma anion gap determination (moles/volume) 12 mmol/L 5-14 Serum or plasma urea nitrogen measurement (mass/volume ) 25 mg/dL 7-18 Serum or plasma creatinine measurement (mass/volume) 1.05 mg/dL 0.60-1.30 Serum or plasma urea nitrogen/creatinine mass ratio 24 NRG Serum or plasma creatinine measurement w ith calculation of estimated glomerular filtration rate > NRG Serum or plasma glucose measurement (mass/volume) 140 mg/dL 70-105 Serum or plasma calcium measurement (mass/volume) 8.9 mg/dL 8.5-10.1 Serum or plasma total bilirubin measurement (mass/volu me) 0.7 mg/dL 0.1-1.0 Serum or plasma alkaline phosphatase dnonell surement (enzymatic activity/volume) 85 U/L 40-136 Serum or plasma aspartate aminotransfera se measurement (enzymatic activity/volume) 111 U/L 5-34 Serum or plasma alanine aminotransferase measurement (enzymatic activity/volume) 42 U/L 0-55 Serum or plasma protein measurement (mass/volume) 6.8 g/dL 6.4-8.2 Serum or plasma albumin measurement (mass/volume) 3.3 g/dL 3.2-4.5 Digoxin - 04/14/17 01:59 Digoxin 1.04 ng/mL 0.80-2.00 Complete blood count (CBC) with automate d white blood cell (WBC) differential - 04/15/17 05:17 Blood leukocytes automated count (number/volume) 18.7 10*3/uL 4.3-11.0 Blood erythrocytes automated count (number/volume) 4.67 10*6/uL 4.35-5.85 Venous blood hemoglobin measurement (mass/volume) 13.9 g/dL 13.3-17.7 Blood hematocrit (volume fraction) 42 % 40-54 Automated erythrocyte mean corpuscular volume 89 [ foz_us] 80-99 Automated erythrocyte mean corpuscular h emoglobin (mass per erythrocyte) 30 pg 25-34 Automated erythrocyte mean corpuscular h emoglobin concentration measurement (mass/volume) 33 g/dL 32-36 Automated erythrocyte distribution width ratio 14. 5 % 10.0- 14.5 Automated blood platelet count (count/volume) 315 10*3/uL 130-400 Automated blood platelet mean volume measurement 9.8 [foz_us] 7.4-10.4 Automated blood neutrophils/100 leukocytes 83 % 42-75 Automated blood lymphocytes/100 leukocytes 9 % 12-44 Blood monocytes/100 leukocytes 8 % 0-12 Automated blood eosinophils/100 leukocytes 0 % 0-10 Automated blood basophils/100 leukocytes 0 % 0-10 Blood neutrophils automated count (number/volume) 15.5 10*3 1.8-7.8 Blood lymphocytes automated count (number/volume) 1.6 10*3 1.0-4.0 Blood monocytes automated count (number/volume) 1. 5 10*3 0.0-1.0 Automated eosinophil count 0.0 10*3/uL 0 .0-0.3 Automated blood basophil count (count/volume) 0.0 10*3/uL 0.0-0.1 Comprehensive metabolic panel - 04/15/17 05:17 Serum or plasma sodium measurement (moles/volume) 140 mmol/L 135-145 Serum or plasma potassium measurement (moles/volume) 4.4 mmol/L 3.6-5.0 Serum or plasma chloride measurement (moles/volume) 105 mmol/L 98-107 Carbon dioxide 22 mmol/L 21-32 Serum or plasma anion gap determination (moles/volume) 13 mmol/L 5-14 Serum or plasma urea nitrogen measurement (mass/volume ) 25 mg/dL 7-18 Serum or plasma creatinine measurement (mass/volume) 0.97 mg/dL 0.60-1.30 Serum or plasma urea nitrogen/creatinine mass ratio 26 NRG Serum or plasma creatinine measurement w ith calculation of estimated glomerular filtration rate > NRG Serum or plasma glucose measurement (mass/volume) 113 mg/dL 70-105 Serum or plasma calcium measurement (mass/volume) 9.5 mg/dL 8.5-10.1 Serum or plasma total bilirubin measurement (mass/volu me) 0.9 mg/dL 0.1-1.0 Serum or plasma alkaline phosphatase donnell surement (enzymatic activity/volume) 90 U/L 40-136 Serum or plasma aspartate aminotransfera se measurement (enzymatic activity/volume) 102 U/L 5-34 Serum or plasma alanine aminotransferase measurement (enzymatic activity/volume) 62 U/L 0-55 Serum or plasma protein measurement (mass/volume) 7.4 g/dL 6.4-8.2 Serum or plasma albumin measurement (mass/volume) 3.6 g/dL 3.2-4.5 Complete blood count (CBC) with automate d white blood cell (WBC) differential - 04/16/17 05:29 Blood leukocytes automated count (number/volume) 10.0 10*3/uL 4.3-11.0 Blood erythrocytes automated count (number/volume) 4.48 10*6/uL 4.35-5.85 Venous blood hemoglobin measurement (mass/volume) 13.4 g/dL 13.3-17.7 Blood hematocrit (volume fraction) 40 % 40-54 Automated erythrocyte mean corpuscular volume 89 [ foz_us] 80-99 Automated erythrocyte mean corpuscular h emoglobin (mass per erythrocyte) 30 pg 25-34 Automated erythrocyte mean corpuscular h emoglobin concentration measurement (mass/volume) 34 g/dL 32-36 Automated erythrocyte distribution width ratio 14. 1 % 10.0- 14.5 Automated blood platelet count (count/volume) 235 10*3/uL 130-400 Automated blood platelet mean volume measurement 9.8 [foz_us] 7.4-10.4 Automated blood neutrophils/100 leukocytes 67 % 42-75 Automated blood lymphocytes/100 leukocytes 17 % 12-44 Blood monocytes/100 leukocytes 9 % 0-12 Automated blood eosinophils/100 leukocytes 7 % 0-10 Automated blood basophils/100 leukocytes 0 % 0-10 Blood neutrophils automated count (number/volume) 6.7 10*3 1.8-7.8 Blood lymphocytes automated count (number/volume) 1.7 10*3 1.0-4.0 Blood monocytes automated count (number/volume) 0. 9 10*3 0.0-1.0 Automated eosinophil count 0.7 10*3/uL 0 .0-0.3 Automated blood basophil count (count/volume) 0.0 10*3/uL 0.0-0.1 Comprehensive metabolic panel - 04/16/17 05:29 Serum or plasma sodium measurement (moles/volume) 140 mmol/L 135-145 Serum or plasma potassium measurement (moles/volume) 4.1 mmol/L 3.6-5.0 Serum or plasma chloride measurement (moles/volume) 104 mmol/L 98-107 Carbon dioxide 25 mmol/L 21-32 Serum or plasma anion gap determination (moles/volume) 11 mmol/L 5-14 Serum or plasma urea nitrogen measurement (mass/volume ) 23 mg/dL 7-18 Serum or plasma creatinine measurement (mass/volume) 0.99 mg/dL 0.60-1.30 Serum or plasma urea nitrogen/creatinine mass ratio 23 NRG Serum or plasma creatinine measurement w ith calculation of estimated glomerular filtration rate > NRG Serum or plasma glucose measurement (mass/volume) 102 mg/dL 70-105 Serum or plasma calcium measurement (mass/volume) 8.5 mg/dL 8.5-10.1 Serum or plasma total bilirubin measurement (mass/volu me) 0.6 mg/dL 0.1-1.0 Serum or plasma alkaline phosphatase donnell surement (enzymatic activity/volume) 81 U/L 40-136 Serum or plasma aspartate aminotransfera se measurement (enzymatic activity/volume) 63 U/L 5-34 Serum or plasma alanine aminotransferase measurement (enzymatic activity/volume) 54 U/L 0-55 Serum or plasma protein measurement (mass/volume) 6.6 g/dL 6.4-8.2 Serum or plasma albumin measurement (mass/volume) 3.1 g/dL 3.2-4.5 Complete blood count (CBC) with automate d white blood cell (WBC) differential - 08/31/18 14:10 Blood leukocytes automated count (number/volume) 12.5 10*3/uL 4.3-11.0 Blood erythrocytes automated count (number/volume) 4.23 10*6/uL 4.35-5.85 Venous blood hemoglobin measurement (mass/volume) 13.5 g/dL 13.3-17.7 Blood hematocrit (volume fraction) 39 % 40-54 Automated erythrocyte mean corpuscular volume 93 [ foz_us] 80-99 Automated erythrocyte mean corpuscular h emoglobin (mass per erythrocyte) 32 pg 25-34 Automated erythrocyte mean corpuscular h emoglobin concentration measurement (mass/volume) 34 g/dL 32-36 Automated erythrocyte distribution width ratio 14. 4 % 10.0- 14.5 Automated blood platelet count (count/volume) 171 10*3/uL 130-400 Automated blood platelet mean volume measurement 10.1 [foz_us] 7.4-10.4 Automated blood neutrophils/100 leukocytes 62 % 42-75 Automated blood lymphocytes/100 leukocytes 24 % 12-44 Blood monocytes/100 leukocytes 10 % 0-12 Automated blood eosinophils/100 leukocytes 4 % 0-10 Automated blood basophils/100 leukocytes 0 % 0-10 Blood neutrophils automated count (number/volume) 7.7 10*3 1.8-7.8 Blood lymphocytes automated count (number/volume) 3.0 10*3 1.0-4.0 Blood monocytes automated count (number/volume) 1. 2 10*3 0.0-1.0 Automated eosinophil count 0.5 10*3/uL 0 .0-0.3 Automated blood basophil count (count/volume) 0.0 10*3/uL 0.0-0.1 Comprehensive metabolic panel - 08/31/18 14:10 Serum or plasma sodium measurement (moles/volume) 138 mmol/L 135-145 Serum or plasma potassium measurement (moles/volume) 4.0 mmol/L 3.6-5.0 Serum or plasma chloride measurement (moles/volume) 104 mmol/L 98-107 Carbon dioxide 22 mmol/L 21-32 Serum or plasma anion gap determination (moles/volume) 12 mmol/L 5-14 Serum or plasma urea nitrogen measurement (mass/volume ) 14 mg/dL 7-18 Serum or plasma creatinine measurement (mass/volume) 1.11 mg/dL 0.60-1.30 Serum or plasma urea nitrogen/creatinine mass ratio 13 NRG Serum or plasma creatinine measurement w ith calculation of estimated glomerular filtration rate > NRG Serum or plasma glucose measurement (mass/volume) 132 mg/dL 70-105 Serum or plasma calcium measurement (mass/volume) 9.4 mg/dL 8.5-10.1 Serum or plasma total bilirubin measurement (mass/volu me) 1.4 mg/dL 0.1-1.0 Serum or plasma alkaline phosphatase donnell surement (enzymatic activity/volume) 77 U/L 40-136 Serum or plasma aspartate aminotransfera se measurement (enzymatic activity/volume) 24 U/L 5-34 Serum or plasma alanine aminotransferase measurement (enzymatic activity/volume) 23 U/L 0-55 Serum or plasma protein measurement (mass/volume) 7.2 g/dL 6.4-8.2 Serum or plasma albumin measurement (mass/volume) 4.1 g/dL 3.2-4.5 CALCIUM CORRECTED 9.3 mg/dL 8.5-10.1 Magnesium - 08/31/18 14:10 Magnesium 2.0 mg/dL 1.8-2.4 Serum or plasma troponin i.cardiac measu rement (mass/volume) - 08/31/18 14:10 Serum or plasma troponin i.cardiac measurement (mass/v olume) 0.028 ng/mL <0.028 Myoglobin, serum - 08/31/18 14:10 Myoglobin, serum 66.4 ng/mL 10.0-92.0 Serum or plasma lithium measurement (mol es/volume) - 08/31/18 14:10 BNP level 90.8 pg/mL <100.0 PT panel in platelet poor plasma by coag ulation assay - 08/31/18 14:10 Prothrombin time (PT) in platelet poor plasma by coagu lation assay 15.8 s 12.2-14.7 INR in platelet poor plasma or blood by coagulation as say 1.2 0.8-1.4 Activated partial thromboplastin time (a PTT) in platelet poor plasma bycoagulation assay - 08/31/18 14:10 Activated partial thromboplastin time (a PTT) in platelet poor plasma bycoagulation assay 40 s 24-35 Fibrin D-dimer FEU measurement in platel et poor plasma (mass/volume) - 08/31/18 14:10 Fibrin D-dimer FEU measurement in platelet poor plasma (mass/volume) 1.64 ug/mL 0.00-0.49 Blood lactic acid measurement (moles/vol ume) - 08/31/18 16:58 Blood lactic acid measurement (moles/volume) 1.44 mmol/L 0.50-2.00 Bacterial blood culture - 08/31/18 16:58 Bacterial blood culture NG NRG Bacterial blood culture - 08/31/18 17:15 Bacterial blood culture NG NRG Complete blood count (CBC) with automate d white blood cell (WBC) differential - 09/01/18 03:09 Blood leukocytes automated count (number/volume) 13.4 10*3/uL 4.3-11.0 Blood erythrocytes automated count (number/volume) 3.81 10*6/uL 4.35-5.85 Venous blood hemoglobin measurement (mass/volume) 11.8 g/dL 13.3-17.7 Blood hematocrit (volume fraction) 36 % 40-54 Automated erythrocyte mean corpuscular volume 95 [ foz_us] 80-99 Automated erythrocyte mean corpuscular h emoglobin (mass per erythrocyte) 31 pg 25-34 Automated erythrocyte mean corpuscular h emoglobin concentration measurement (mass/volume) 33 g/dL 32-36 Automated erythrocyte distribution width ratio 14. 9 % 10.0- 14.5 Automated blood platelet count (count/volume) 156 10*3/uL 130-400 Automated blood platelet mean volume measurement 9.6 [foz_us] 7.4-10.4 Automated blood neutrophils/100 leukocytes 83 % 42-75 Automated blood lymphocytes/100 leukocytes 8 % 12-44 Blood monocytes/100 leukocytes 9 % 0-12 Automated blood eosinophils/100 leukocytes 0 % 0-10 Automated blood basophils/100 leukocytes 0 % 0-10 Blood neutrophils automated count (number/volume) 11.1 10*3 1.8-7.8 Blood lymphocytes automated count (number/volume) 1.0 10*3 1.0-4.0 Blood monocytes automated count (number/volume) 1. 2 10*3 0.0-1.0 Automated eosinophil count 0.0 10*3/uL 0 .0-0.3 Automated blood basophil count (count/volume) 0.0 10*3/uL 0.0-0.1 Whole blood basic metabolic panel - 05/21 03:09 Serum or plasma sodium measurement (moles/volume) 136 mmol/L 135-145 Serum or plasma potassium measurement (moles/volume) 4.1 mmol/L 3.6-5.0 Serum or plasma chloride measurement (moles/volume) 104 mmol/L 98-107 Carbon dioxide 20 mmol/L 21-32 Serum or plasma anion gap determination (moles/volume) 12 mmol/L 5-14 Serum or plasma urea nitrogen measurement (mass/volume ) 16 mg/dL 7-18 Serum or plasma creatinine measurement (mass/volume) 1.20 mg/dL 0.60-1.30 Serum or plasma urea nitrogen/creatinine mass ratio 13 NRG Serum or plasma creatinine measurement w ith calculation of estimated glomerular filtration rate 59 NRG Serum or plasma glucose measurement (mass/volume) 160 mg/dL 70-105 Serum or plasma calcium measurement (mass/volume) 8.6 mg/dL 8.5-10.1 Serum or plasma phosphate measurement (m ass/volume) - 09/01/18 03:09 Serum or plasma phosphate measurement (mass/volume) 2.6 mg/dL 2.3-4.7 Magnesium - 09/01/18 03:09 Magnesium 1.8 mg/dL 1.8-2.4 Serum or plasma lithium measurement (mol es/volume) - 09/01/18 03:09 BNP level 80.2 pg/mL <100.0 Lipid 1996 panel - 09/01/18 03:09 Serum or plasma triglyceride measurement (mass/volume) 84 mg/dL <150 Serum or plasma cholesterol measurement (mass/volume) 91 mg/dL < 200 Serum or plasma cholesterol in HDL measurement (mass/v olume) 38 mg/dL 40-60 Cholesterol in LDL [mass/volume] in serum or plasma by direct assay 38 mg/dL 1-129 Serum or plasma cholesterol in VLDL measurement (mass/ volume) 17 mg/dL 5-40 Arterial blood gas measurement - 9 03:24 Blood pCO2 34 mm[Hg] 35-45 Blood pO2 75 mm[Hg] 79-93 Arterial blood bicarbonate measurement (moles/volume) 23 mmol/L 23-27 Arterial blood base excess by calculation -0.4 mmo l/L -2.5-2.5 Arterial blood oxygen saturation measurement 97 % 94-100 * Inhaled oxygen flow rate 80% NRG Arterial blood pH measurement with patient temperature correction 7.45 7.37-7.43 Arterial blood carbon dioxide, total measurement (mole s/volume) 24.1 mmol/L 21.0-31.0 Body site RIGHT RADIAL NRG Assessment of wrist artery patency prior to arterial p uncture YES-POS NRG Setting of ventilation mode NO NR G Measurement of body temperature 98.6 NRG Complete urinalysis with reflex to cultu re - 09/01/18 05:55 Urine color determination YELLOW NRG Urine clarity determination CLEAR NR G Urine pH measurement by test strip 5 5-9 Specific gravity of urine by test strip 1.015 1.016-1.022 Urine protein assay by test strip, semi-quantitative 2+ NEGATIVE Urine glucose detection by automated test strip NE GATIVE NEGATIVE Erythrocytes detection in urine sediment by light micr oscopy NEGATIVE NEGATIVE Urine ketones detection by automated test strip 1+ NEGATIVE Urine nitrite detection by test strip NEGATIVE NEGATIVE Urine total bilirubin detection by test strip NEGA TIVE NEGATIVE Urine urobilinogen measurement by automated test strip (mass/volume) 1 mg/dL NORMAL Urine leukocyte esterase detection by dipstick 1+ NEGATIVE Automated urine sediment erythrocyte cou nt by microscopy (number/high power field) NONE NRG Automated urine sediment leukocyte count by microscopy (number/high power field) NONE NRG Bacteria detection in urine sediment by light microsco py TRACE NRG Squamous epithelial cells detection in u rine sediment by light microscopy 2-5 NRG Crystals detection in urine sediment by light microsco py NONE NRG Casts detection in urine sediment by light microscopy NONE NRG Mucus detection in urine sediment by light microscopy SMALL NRG Complete urinalysis with reflex to culture NO NRG Urine Legionella pneumophila antigen ass ay - 09/01/18 05:55 Urine Legionella pneumophila antigen assay Negativ e NRG Streptococcus pneumoniae antigen detecti on - 09/01/18 05:55 Streptococcus pneumoniae antigen detection Negativ e NRG RESPIRATORY VIRUS PANEL - 09/01/18 05:55 Influenza A H1N1 virus detection by polymerase chain r eaction Not Detected Not Detected Influenza B virus RNA detection by polymerase chain re action Not Detected Not Detected Adenovirus detection, CSF, PCR Not Detected Not Detected Parainfluenza 1 virus RNA nucleic acid assay by PCR Not Detected Not Detected Parainfluenza virus 2 Ab [Titer] in Serum Not Dete cted Not Detected Parainfluenza virus 3 RNA detection by PCR Not Det ected Not Detected Human metapneumovirus (hMPV) RNA detection by PCR Not Detected Not Detected RSV PCR Not Detected Not Detected Methicillin resistant Staphylococcus aur eus (MRSA) screening culture - 09/01/18 06:15 Methicillin resistant Staphylococcus aureus (MRSA) scr eening culture NEG NRG Stool occult blood screen - 09/01/18 11: 25 Stool gastrointestinal hemoglobin detection POSITI VE NEGATIVE Complete blood count (CBC) with automate d white blood cell (WBC) differential - 09/02/18 02:42 Blood leukocytes automated count (number/volume) 16.2 10*3/uL 4.3-11.0 Blood erythrocytes automated count (number/volume) 3.58 10*6/uL 4.35-5.85 Venous blood hemoglobin measurement (mass/volume) 11.3 g/dL 13.3-17.7 Blood hematocrit (volume fraction) 33 % 40-54 Automated erythrocyte mean corpuscular volume 92 [ foz_us] 80-99 Automated erythrocyte mean corpuscular h emoglobin (mass per erythrocyte) 32 pg 25-34 Automated erythrocyte mean corpuscular h emoglobin concentration measurement (mass/volume) 34 g/dL 32-36 Automated erythrocyte distribution width ratio 14. 0 % 10.0- 14.5 Automated blood platelet count (count/volume) 129 10*3/uL 130-400 Automated blood platelet mean volume measurement 10.4 [foz_us] 7.4-10.4 Automated blood neutrophils/100 leukocytes 93 % 42-75 Automated blood lymphocytes/100 leukocytes 4 % 12-44 Blood monocytes/100 leukocytes 4 % 0-12 Automated blood eosinophils/100 leukocytes 0 % 0-10 Automated blood basophils/100 leukocytes 0 % 0-10 Blood neutrophils automated count (number/volume) 15.1 10*3 1.8-7.8 Blood lymphocytes automated count (number/volume) 0.6 10*3 1.0-4.0 Blood monocytes automated count (number/volume) 0. 6 10*3 0.0-1.0 Automated eosinophil count 0.0 10*3/uL 0 .0-0.3 Automated blood basophil count (count/volume) 0.0 10*3/uL 0.0-0.1 Whole blood basic metabolic panel - 06/18 02:42 Serum or plasma sodium measurement (moles/volume) 134 mmol/L 135-145 Serum or plasma potassium measurement (moles/volume) 3.3 mmol/L 3.6-5.0 Serum or plasma chloride measurement (moles/volume) 105 mmol/L 98-107 Carbon dioxide 17 mmol/L 21-32 Serum or plasma anion gap determination (moles/volume) 12 mmol/L 5-14 Serum or plasma urea nitrogen measurement (mass/volume ) 21 mg/dL 7-18 Serum or plasma creatinine measurement (mass/volume) 1.38 mg/dL 0.60-1.30 Serum or plasma urea nitrogen/creatinine mass ratio 15 NRG Serum or plasma creatinine measurement w ith calculation of estimated glomerular filtration rate 50 NRG Serum or plasma glucose measurement (mass/volume) 277 mg/dL 70-105 Serum or plasma calcium measurement (mass/volume) 9.1 mg/dL 8.5-10.1 Serum or plasma phosphate measurement (m ass/volume) - 09/02/18 02:42 Serum or plasma phosphate measurement (mass/volume) 1.4 mg/dL 2.3-4.7 Magnesium - 09/02/18 02:42 Magnesium 2.2 mg/dL 1.8-2.4 DIGOXIN - 09/02/18 02:42 DIGOXIN 0.86 ng/mL 0.80-2.00 Blood manual differential performed dete ction - 09/02/18 02:42 Blood monocytes/100 leukocytes 2 % NRG Manual blood segmented neutrophils/100 leukocytes 93 % NRG Blood band neutrophils/100 leukocytes 3 % NRG Manual blood lymphocytes/100 leukocytes 2 % NRG Blood erythrocyte morphology finding identification NORMAL NRG Arterial blood gas measurement - 9 03:05 Blood pCO2 28 mm[Hg] 35-45 Blood pO2 58 mm[Hg] 79-93 Arterial blood bicarbonate measurement (moles/volume) 20 mmol/L 23-27 Arterial blood base excess by calculation -3.4 mmo l/L -2.5-2.5 Arterial blood oxygen saturation measurement 94 % 94-100 * Inhaled oxygen flow rate 40% NRG Arterial blood pH measurement with patient temperature correction 7.46 7.37-7.43 Arterial blood carbon dioxide, total measurement (mole s/volume) 20.9 mmol/L 21.0-31.0 Body site RIGHT RADIAL NRG Assessment of wrist artery patency prior to arterial p uncture YES-POS NRG Setting of ventilation mode NO NR G Measurement of body temperature 96.2 NRG Electrolytes panel - 09/02/18 15:00 Serum or plasma sodium measurement (moles/volume) 137 mmol/L 135-145 Serum or plasma potassium measurement (moles/volume) 4.0 mmol/L 3.6-5.0 Serum or plasma chloride measurement (moles/volume) 107 mmol/L 98-107 Carbon dioxide 17 mmol/L 21-32 Serum or plasma anion gap determination (moles/volume) 13 mmol/L 5-14 Vancomycin trough - 09/02/18 15:00 Vancomycin trough 9.5 ug/mL 10.0-20.0 Complete blood count (CBC) with automate d white blood cell (WBC) differential - 09/03/18 03:10 Blood leukocytes automated count (number/volume) 18.5 10*3/uL 4.3-11.0 Blood erythrocytes automated count (number/volume) 3.97 10*6/uL 4.35-5.85 Venous blood hemoglobin measurement (mass/volume) 12.3 g/dL 13.3-17.7 Blood hematocrit (volume fraction) 37 % 40-54 Automated erythrocyte mean corpuscular volume 92 [ foz_us] 80-99 Automated erythrocyte mean corpuscular h emoglobin (mass per erythrocyte) 31 pg 25-34 Automated erythrocyte mean corpuscular h emoglobin concentration measurement (mass/volume) 34 g/dL 32-36 Automated erythrocyte distribution width ratio 14. 8 % 10.0- 14.5 Automated blood platelet count (count/volume) 212 10*3/uL 130-400 Automated blood platelet mean volume measurement 10.1 [foz_us] 7.4-10.4 Automated blood neutrophils/100 leukocytes 93 % 42-75 Automated blood lymphocytes/100 leukocytes 3 % 12-44 Blood monocytes/100 leukocytes 4 % 0-12 Automated blood eosinophils/100 leukocytes 0 % 0-10 Automated blood basophils/100 leukocytes 0 % 0-10 Blood neutrophils automated count (number/volume) 17.3 10*3 1.8-7.8 Blood lymphocytes automated count (number/volume) 0.5 10*3 1.0-4.0 Blood monocytes automated count (number/volume) 0. 8 10*3 0.0-1.0 Automated eosinophil count 0.0 10*3/uL 0 .0-0.3 Automated blood basophil count (count/volume) 0.0 10*3/uL 0.0-0.1 Whole blood basic metabolic panel - 07/19 03:10 Serum or plasma sodium measurement (moles/volume) 138 mmol/L 135-145 Serum or plasma potassium measurement (moles/volume) 3.9 mmol/L 3.6-5.0 Serum or plasma chloride measurement (moles/volume) 108 mmol/L 98-107 Carbon dioxide 15 mmol/L 21-32 Serum or plasma anion gap determination (moles/volume) 15 mmol/L 5-14 Serum or plasma urea nitrogen measurement (mass/volume ) 21 mg/dL 7-18 Serum or plasma creatinine measurement (mass/volume) 1.24 mg/dL 0.60-1.30 Serum or plasma urea nitrogen/creatinine mass ratio 17 NRG Serum or plasma creatinine measurement w ith calculation of estimated glomerular filtration rate 57 NRG Serum or plasma glucose measurement (mass/volume) 222 mg/dL 70-105 Serum or plasma calcium measurement (mass/volume) 9.6 mg/dL 8.5-10.1 Serum or plasma phosphate measurement (m ass/volume) - 09/03/18 03:10 Serum or plasma phosphate measurement (mass/volume) 2.6 mg/dL 2.3-4.7 Magnesium - 09/03/18 03:10 Magnesium 2.3 mg/dL 1.8-2.4 Blood lactic acid measurement (moles/vol ume) - 09/03/18 07:16 Blood lactic acid measurement (moles/volume) 2.72 mmol/L 0.50-2.00 Serum or plasma lactate measurement (mol es/volume) - 09/03/18 09:31 Serum or plasma lactate measurement (moles/volume) 3.24 mmol/L 0.50-2.00 Complete blood count (CBC) with automate d white blood cell (WBC) differential - 09/04/18 03:35 Blood leukocytes automated count (number/volume) 14.6 10*3/uL 4.3-11.0 Blood erythrocytes automated count (number/volume) 3.84 10*6/uL 4.35-5.85 Venous blood hemoglobin measurement (mass/volume) 12.2 g/dL 13.3-17.7 Blood hematocrit (volume fraction) 36 % 40-54 Automated erythrocyte mean corpuscular volume 93 [ foz_us] 80-99 Automated erythrocyte mean corpuscular h emoglobin (mass per erythrocyte) 32 pg 25-34 Automated erythrocyte mean corpuscular h emoglobin concentration measurement (mass/volume) 34 g/dL 32-36 Automated erythrocyte distribution width ratio 14. 8 % 10.0- 14.5 Automated blood platelet count (count/volume) 205 10*3/uL 130-400 Automated blood platelet mean volume measurement 10.0 [foz_us] 7.4-10.4 Automated blood neutrophils/100 leukocytes 93 % 42-75 Automated blood lymphocytes/100 leukocytes 3 % 12-44 Blood monocytes/100 leukocytes 4 % 0-12 Automated blood eosinophils/100 leukocytes 0 % 0-10 Automated blood basophils/100 leukocytes 0 % 0-10 Blood neutrophils automated count (number/volume) 13.6 10*3 1.8-7.8 Blood lymphocytes automated count (number/volume) 0.5 10*3 1.0-4.0 Blood monocytes automated count (number/volume) 0. 5 10*3 0.0-1.0 Automated eosinophil count 0.0 10*3/uL 0 .0-0.3 Automated blood basophil count (count/volume) 0.0 10*3/uL 0.0-0.1 Blood lactic acid measurement (moles/vol ume) - 09/04/18 03:35 Blood lactic acid measurement (moles/volume) 3.49 mmol/L 0.50-2.00 Whole blood basic metabolic panel - 08/18 03:35 Serum or plasma sodium measurement (moles/volume) 137 mmol/L 135-145 Serum or plasma potassium measurement (moles/volume) 3.9 mmol/L 3.6-5.0 Serum or plasma chloride measurement (moles/volume) 108 mmol/L 98-107 Carbon dioxide 18 mmol/L 21-32 Serum or plasma anion gap determination (moles/volume) 11 mmol/L 5-14 Serum or plasma urea nitrogen measurement (mass/volume ) 20 mg/dL 7-18 Serum or plasma creatinine measurement (mass/volume) 1.14 mg/dL 0.60-1.30 Serum or plasma urea nitrogen/creatinine mass ratio 18 NRG Serum or plasma creatinine measurement w ith calculation of estimated glomerular filtration rate > NRG Serum or plasma glucose measurement (mass/volume) 240 mg/dL 70-105 Serum or plasma calcium measurement (mass/volume) 8.9 mg/dL 8.5-10.1 Serum or plasma phosphate measurement (m ass/volume) - 09/04/18 03:35 Serum or plasma phosphate measurement (mass/volume) 2.6 mg/dL 2.3-4.7 Magnesium - 09/04/18 03:35 Magnesium 1.8 mg/dL 1.8-2.4 BODY FLUID DIFFERENTIAL - 09/04/18 06:10 Specimen source identification of body fluid PLEUR AL NRG Evaluation of color of body fluid RED NRG Determination of appearance of body fluid MOD BLDY NRG Manual body fluid polymorphonuclear cells/100 leukocyt es 30 % NRG Manual body fluid mononuclear cells/100 leukocytes 0 % NRG Manual body fluid lymphocytes/100 leukocytes 8 % NRG Manual body fluid other cell count (number) 62 % NRG Sputum Gram stain - 09/04/18 06:10 Sputum Gram stain Rare Mixed Bacterial Bridget NRG Bacteria identification in bronchial spe cimen by aerobe culture - 09/04/18 06:10 QUANTITY OF GROWTH . NRG Bacteria identification in bronchial specimen by aerob e culture USUAL RESP NRG FTX;REPORTABLE 10,000 CFU/ML NRG Fungus culture - 09/04/18 06:10 QUANTITY OF GROWTH Rare NRG FTX;REPORTABLE REPORTED 09/11/18 NRG Fungus culture [id number] NRG Sputum Gram stain - 09/04/18 06:11 Sputum Gram stain No bacteria seen NRG Bacteria identification in bronchial spe cimen by aerobe culture - 09/04/18 06:11 QUANTITY OF GROWTH . NRG Bacteria identification in bronchial specimen by aerob e culture USUAL RESP NRG FTX;REPORTABLE 1,000 CFU/ML NRG Fungus culture - 09/04/18 06:11 QUANTITY OF GROWTH . NRG FTX;REPORTABLE NO FUNGUS ISOILATED NRG Fungus culture PROGRESS NRG FUNGUS EXAM CURRENT REPORT: NEGATIVE NR G Mycobacterium species detection by organ ism specific culture - 09/04/18 06:12 Serum or plasma lactate measurement (mol es/volume) - 09/04/18 06:46 Serum or plasma lactate measurement (moles/volume) 2.64 mmol/L 0.50-2.00 Capillary blood glucose measurement by g lucometer (mass/volume) - 09/04/18 11:47 Capillary blood glucose measurement by glucometer (mas s/volume) 183 mg/dL 70-110 ANTI-NUCLEAR AB (GENE) ANALYZER - 9 13:07 Screening antinuclear antibody (GENE) assay by enzyme i mmunoassay <1:80 <1:80 Serum classic neutrophil cytoplasmic ant ibody assay (units/volume) - 09/04/18 13:07 Antineutrophil cytoplasmic antibody (ANCA) assay < <1:20 Antineutrophil cytoplasmic antibody (ANCA) pattern Not Indicated NRG Serum glomerular basement membrane antib abebe assay (mass/volume) - 09/04/18 13:07 Serum glomerular basement membrane antibody assay (uni ts/volume) < % 0.0-19.9 Capillary blood glucose measurement by g lucometer (mass/volume) - 09/04/18 18:08 Capillary blood glucose measurement by glucometer (mas s/volume) 241 mg/dL 70-110 Capillary blood glucose measurement by g lucometer (mass/volume) - 09/04/18 22:58 Capillary blood glucose measurement by glucometer (mas s/volume) 247 mg/dL 70-110 Complete blood count (CBC) with automate d white blood cell (WBC) differential - 09/05/18 03:15 Blood leukocytes automated count (number/volume) 14.3 10*3/uL 4.3-11.0 Blood erythrocytes automated count (number/volume) 3.89 10*6/uL 4.35-5.85 Venous blood hemoglobin measurement (mass/volume) 12.3 g/dL 13.3-17.7 Blood hematocrit (volume fraction) 36 % 40-54 Automated erythrocyte mean corpuscular volume 93 [ foz_us] 80-99 Automated erythrocyte mean corpuscular h emoglobin (mass per erythrocyte) 32 pg 25-34 Automated erythrocyte mean corpuscular h emoglobin concentration measurement (mass/volume) 34 g/dL 32-36 Automated erythrocyte distribution width ratio 14. 9 % 10.0- 14.5 Automated blood platelet count (count/volume) 226 10*3/uL 130-400 Automated blood platelet mean volume measurement 9.8 [foz_us] 7.4-10.4 Automated blood neutrophils/100 leukocytes 91 % 42-75 Automated blood lymphocytes/100 leukocytes 4 % 12-44 Blood monocytes/100 leukocytes 5 % 0-12 Automated blood eosinophils/100 leukocytes 0 % 0-10 Automated blood basophils/100 leukocytes 0 % 0-10 Blood neutrophils automated count (number/volume) 12.9 10*3 1.8-7.8 Blood lymphocytes automated count (number/volume) 0.6 10*3 1.0-4.0 Blood monocytes automated count (number/volume) 0. 8 10*3 0.0-1.0 Automated eosinophil count 0.0 10*3/uL 0 .0-0.3 Automated blood basophil count (count/volume) 0.0 10*3/uL 0.0-0.1 Liver function panel (serum or plasma al k phos, alb, total and direct bili, total protein, ALT, AST) - 09/05/18 03:15 Serum or plasma total bilirubin measurement (mass/volu me) 0.7 mg/dL 0.1-1.0 Serum or plasma alkaline phosphatase donnell surement (enzymatic activity/volume) 64 U/L 40-136 Serum or plasma aspartate aminotransfera se measurement (enzymatic activity/volume) 29 U/L 5-34 Serum or plasma alanine aminotransferase measurement (enzymatic activity/volume) 31 U/L 0-55 Serum or plasma protein measurement (mass/volume) 5.9 g/dL 6.4-8.2 Serum or plasma albumin measurement (mass/volume) 3.0 g/dL 3.2-4.5 Bilirubin direct 0.4 mg/dL 0.0-0.3 Serum or plasma indirect bilirubin measurement (mass/v olume) 0.3 mg/dL [facility] Whole blood basic metabolic panel - 09/18 03:15 Serum or plasma sodium measurement (moles/volume) 139 mmol/L 135-145 Serum or plasma potassium measurement (moles/volume) 4.1 mmol/L 3.6-5.0 Serum or plasma chloride measurement (moles/volume) 107 mmol/L 98-107 Carbon dioxide 20 mmol/L 21-32 Serum or plasma anion gap determination (moles/volume) 12 mmol/L 5-14 Serum or plasma urea nitrogen measurement (mass/volume ) 17 mg/dL 7-18 Serum or plasma creatinine measurement (mass/volume) 1.00 mg/dL 0.60-1.30 Serum or plasma urea nitrogen/creatinine mass ratio 17 NRG Serum or plasma creatinine measurement w ith calculation of estimated glomerular filtration rate > NRG Serum or plasma glucose measurement (mass/volume) 209 mg/dL 70-105 Serum or plasma calcium measurement (mass/volume) 8.9 mg/dL 8.5-10.1 Serum or plasma phosphate measurement (m ass/volume) - 09/05/18 03:15 Serum or plasma phosphate measurement (mass/volume) 2.3 mg/dL 2.3-4.7 Magnesium - 09/05/18 03:15 Magnesium 1.9 mg/dL 1.8-2.4 Capillary blood glucose measurement by g lucometer (mass/volume) - 09/05/18 11:43 Capillary blood glucose measurement by glucometer (mas s/volume) 202 mg/dL 70-110 Capillary blood glucose measurement by g lucometer (mass/volume) - 09/05/18 17:25 Capillary blood glucose measurement by glucometer (mas s/volume) 228 mg/dL 70-110 Capillary blood glucose measurement by g lucometer (mass/volume) - 09/05/18 23:25 Capillary blood glucose measurement by glucometer (mas s/volume) 223 mg/dL 70-110 Complete blood count (CBC) with automate d white blood cell (WBC) differential - 09/06/18 04:09 Blood leukocytes automated count (number/volume) 15.3 10*3/uL 4.3-11.0 Blood erythrocytes automated count (number/volume) 3.86 10*6/uL 4.35-5.85 Venous blood hemoglobin measurement (mass/volume) 12.1 g/dL 13.3-17.7 Blood hematocrit (volume fraction) 36 % 40-54 Automated erythrocyte mean corpuscular volume 93 [ foz_us] 80-99 Automated erythrocyte mean corpuscular h emoglobin (mass per erythrocyte) 31 pg 25-34 Automated erythrocyte mean corpuscular h emoglobin concentration measurement (mass/volume) 34 g/dL 32-36 Automated erythrocyte distribution width ratio 14. 4 % 10.0- 14.5 Automated blood platelet count (count/volume) 215 10*3/uL 130-400 Automated blood platelet mean volume measurement 9.9 [foz_us] 7.4-10.4 Automated blood neutrophils/100 leukocytes 90 % 42-75 Automated blood lymphocytes/100 leukocytes 6 % 12-44 Blood monocytes/100 leukocytes 4 % 0-12 Automated blood eosinophils/100 leukocytes 0 % 0-10 Automated blood basophils/100 leukocytes 0 % 0-10 Blood neutrophils automated count (number/volume) 13.7 10*3 1.8-7.8 Blood lymphocytes automated count (number/volume) 0.9 10*3 1.0-4.0 Blood monocytes automated count (number/volume) 0. 6 10*3 0.0-1.0 Automated eosinophil count 0.0 10*3/uL 0 .0-0.3 Automated blood basophil count (count/volume) 0.0 10*3/uL 0.0-0.1 Whole blood basic metabolic panel - 10/18 04:09 Serum or plasma sodium measurement (moles/volume) 138 mmol/L 135-145 Serum or plasma potassium measurement (moles/volume) 3.9 mmol/L 3.6-5.0 Serum or plasma chloride measurement (moles/volume) 105 mmol/L 98-107 Carbon dioxide 23 mmol/L 21-32 Serum or plasma anion gap determination (moles/volume) 10 mmol/L 5-14 Serum or plasma urea nitrogen measurement (mass/volume ) 20 mg/dL 7-18 Serum or plasma creatinine measurement (mass/volume) 0.80 mg/dL 0.60-1.30 Serum or plasma urea nitrogen/creatinine mass ratio 25 NRG Serum or plasma creatinine measurement w ith calculation of estimated glomerular filtration rate > NRG Serum or plasma glucose measurement (mass/volume) 176 mg/dL 70-105 Serum or plasma calcium measurement (mass/volume) 8.5 mg/dL 8.5-10.1 Serum or plasma phosphate measurement (m ass/volume) - 09/06/18 04:09 Serum or plasma phosphate measurement (mass/volume) 2.7 mg/dL 2.3-4.7 Magnesium - 09/06/18 04:09 Magnesium 2.1 mg/dL 1.8-2.4 Capillary blood glucose measurement by g lucometer (mass/volume) - 09/06/18 05:17 Capillary blood glucose measurement by glucometer (mas s/volume) 164 mg/dL 70-110 Capillary blood glucose measurement by g lucometer (mass/volume) - 09/06/18 12:33 Capillary blood glucose measurement by glucometer (mas s/volume) 261 mg/dL 70-110 Capillary blood glucose measurement by g lucometer (mass/volume) - 09/06/18 17:54 Capillary blood glucose measurement by glucometer (mas s/volume) 215 mg/dL 70-110 Capillary blood glucose measurement by g lucometer (mass/volume) - 09/06/18 23:14 Capillary blood glucose measurement by glucometer (mas s/volume) 192 mg/dL 70-110 Complete blood count (CBC) with automate d white blood cell (WBC) differential - 09/07/18 04:21 Blood leukocytes automated count (number/volume) 14.4 10*3/uL 4.3-11.0 Blood erythrocytes automated count (number/volume) 3.86 10*6/uL 4.35-5.85 Venous blood hemoglobin measurement (mass/volume) 12.0 g/dL 13.3-17.7 Blood hematocrit (volume fraction) 36 % 40-54 Automated erythrocyte mean corpuscular volume 92 [ foz_us] 80-99 Automated erythrocyte mean corpuscular h emoglobin (mass per erythrocyte) 31 pg 25-34 Automated erythrocyte mean corpuscular h emoglobin concentration measurement (mass/volume) 34 g/dL 32-36 Automated erythrocyte distribution width ratio 14. 2 % 10.0- 14.5 Automated blood platelet count (count/volume) 236 10*3/uL 130-400 Automated blood platelet mean volume measurement 9.5 [foz_us] 7.4-10.4 Automated blood neutrophils/100 leukocytes 89 % 42-75 Automated blood lymphocytes/100 leukocytes 6 % 12-44 Blood monocytes/100 leukocytes 5 % 0-12 Automated blood eosinophils/100 leukocytes 0 % 0-10 Automated blood basophils/100 leukocytes 0 % 0-10 Blood neutrophils automated count (number/volume) 12.8 10*3 1.8-7.8 Blood lymphocytes automated count (number/volume) 0.9 10*3 1.0-4.0 Blood monocytes automated count (number/volume) 0. 7 10*3 0.0-1.0 Automated eosinophil count 0.0 10*3/uL 0 .0-0.3 Automated blood basophil count (count/volume) 0.0 10*3/uL 0.0-0.1 Whole blood basic metabolic panel - 11/18 04:21 Serum or plasma sodium measurement (moles/volume) 137 mmol/L 135-145 Serum or plasma potassium measurement (moles/volume) 3.5 mmol/L 3.6-5.0 Serum or plasma chloride measurement (moles/volume) 102 mmol/L 98-107 Carbon dioxide 26 mmol/L 21-32 Serum or plasma anion gap determination (moles/volume) 9 mmol/L 5-14 Serum or plasma urea nitrogen measurement (mass/volume ) 24 mg/dL 7-18 Serum or plasma creatinine measurement (mass/volume) 0.84 mg/dL 0.60-1.30 Serum or plasma urea nitrogen/creatinine mass ratio 29 NRG Serum or plasma creatinine measurement w ith calculation of estimated glomerular filtration rate > NRG Serum or plasma glucose measurement (mass/volume) 172 mg/dL 70-105 Serum or plasma calcium measurement (mass/volume) 8.3 mg/dL 8.5-10.1 Serum or plasma phosphate measurement (m ass/volume) - 09/07/18 04:21 Serum or plasma phosphate measurement (mass/volume) 2.7 mg/dL 2.3-4.7 Magnesium - 09/07/18 04:21 Magnesium 2.1 mg/dL 1.8-2.4 Manual absolute plasma cell count - 11/18 04:21 Blood monocytes/100 leukocytes 6 % NRG Manual blood segmented neutrophils/100 leukocytes 89 % NRG Manual blood lymphocytes/100 leukocytes 4 % NRG Manual blood lymphocytes variant/100 leukocytes 1 % NRG Capillary blood glucose measurement by g lucometer (mass/volume) - 09/07/18 05:30 Capillary blood glucose measurement by glucometer (mas s/volume) 173 mg/dL 70-110 Capillary blood glucose measurement by g lucometer (mass/volume) - 09/07/18 12:38 Capillary blood glucose measurement by glucometer (mas s/volume) 240 mg/dL 70-110 Capillary blood glucose measurement by g lucometer (mass/volume) - 09/07/18 17:19 Capillary blood glucose measurement by glucometer (mas s/volume) 196 mg/dL 70-110 Capillary blood glucose measurement by g lucometer (mass/volume) - 09/07/18 23:31 Capillary blood glucose measurement by glucometer (mas s/volume) 202 mg/dL 70-110 Complete blood count (CBC) with automate d white blood cell (WBC) differential - 09/08/18 03:20 Blood leukocytes automated count (number/volume) 13.6 10*3/uL 4.3-11.0 Blood erythrocytes automated count (number/volume) 4.08 10*6/uL 4.35-5.85 Venous blood hemoglobin measurement (mass/volume) 12.8 g/dL 13.3-17.7 Blood hematocrit (volume fraction) 37 % 40-54 Automated erythrocyte mean corpuscular volume 92 [ foz_us] 80-99 Automated erythrocyte mean corpuscular h emoglobin (mass per erythrocyte) 31 pg 25-34 Automated erythrocyte mean corpuscular h emoglobin concentration measurement (mass/volume) 34 g/dL 32-36 Automated erythrocyte distribution width ratio 14. 0 % 10.0- 14.5 Automated blood platelet count (count/volume) 232 10*3/uL 130-400 Automated blood platelet mean volume measurement 9.3 [foz_us] 7.4-10.4 Automated blood neutrophils/100 leukocytes 88 % 42-75 Automated blood lymphocytes/100 leukocytes 6 % 12-44 Blood monocytes/100 leukocytes 6 % 0-12 Automated blood eosinophils/100 leukocytes 0 % 0-10 Automated blood basophils/100 leukocytes 0 % 0-10 Blood neutrophils automated count (number/volume) 12.0 10*3 1.8-7.8 Blood lymphocytes automated count (number/volume) 0.8 10*3 1.0-4.0 Blood monocytes automated count (number/volume) 0. 8 10*3 0.0-1.0 Automated eosinophil count 0.0 10*3/uL 0 .0-0.3 Automated blood basophil count (count/volume) 0.0 10*3/uL 0.0-0.1 Whole blood basic metabolic panel - 12/19 03:20 Serum or plasma sodium measurement (moles/volume) 138 mmol/L 135-145 Serum or plasma potassium measurement (moles/volume) 3.2 mmol/L 3.6-5.0 Serum or plasma chloride measurement (moles/volume) 100 mmol/L 98-107 Carbon dioxide 27 mmol/L 21-32 Serum or plasma anion gap determination (moles/volume) 11 mmol/L 5-14 Serum or plasma urea nitrogen measurement (mass/volume ) 23 mg/dL 7-18 Serum or plasma creatinine measurement (mass/volume) 0.84 mg/dL 0.60-1.30 Serum or plasma urea nitrogen/creatinine mass ratio 27 NRG Serum or plasma creatinine measurement w ith calculation of estimated glomerular filtration rate > NRG Serum or plasma glucose measurement (mass/volume) 143 mg/dL 70-105 Serum or plasma calcium measurement (mass/volume) 8.2 mg/dL 8.5-10.1 Serum or plasma phosphate measurement (m ass/volume) - 09/08/18 03:20 Serum or plasma phosphate measurement (mass/volume) 2.8 mg/dL 2.3-4.7 Magnesium - 09/08/18 03:20 Magnesium 2.2 mg/dL 1.8-2.4 Capillary blood glucose measurement by g lucometer (mass/volume) - 09/08/18 05:10 Capillary blood glucose measurement by glucometer (mas s/volume) 150 mg/dL 70-110 Capillary blood glucose measurement by g lucometer (mass/volume) - 09/08/18 11:34 Capillary blood glucose measurement by glucometer (mas s/volume) 194 mg/dL 70-110 Capillary blood glucose measurement by g lucometer (mass/volume) - 09/08/18 17:56 Capillary blood glucose measurement by glucometer (mas s/volume) 194 mg/dL 70-110 Capillary blood glucose measurement by g lucometer (mass/volume) - 09/08/18 23:29 Capillary blood glucose measurement by glucometer (mas s/volume) 214 mg/dL 70-110 Complete blood count (CBC) with automate d white blood cell (WBC) differential - 09/09/18 05:05 Blood leukocytes automated count (number/volume) 14.9 10*3/uL 4.3-11.0 Blood erythrocytes automated count (number/volume) 4.05 10*6/uL 4.35-5.85 Venous blood hemoglobin measurement (mass/volume) 12.7 g/dL 13.3-17.7 Blood hematocrit (volume fraction) 37 % 40-54 Automated erythrocyte mean corpuscular volume 91 [ foz_us] 80-99 Automated erythrocyte mean corpuscular h emoglobin (mass per erythrocyte) 31 pg 25-34 Automated erythrocyte mean corpuscular h emoglobin concentration measurement (mass/volume) 34 g/dL 32-36 Automated erythrocyte distribution width ratio 14. 1 % 10.0- 14.5 Automated blood platelet count (count/volume) 237 10*3/uL 130-400 Automated blood platelet mean volume measurement 9.5 [foz_us] 7.4-10.4 Automated blood neutrophils/100 leukocytes 85 % 42-75 Automated blood lymphocytes/100 leukocytes 7 % 12-44 Blood monocytes/100 leukocytes 8 % 0-12 Automated blood eosinophils/100 leukocytes 0 % 0-10 Automated blood basophils/100 leukocytes 0 % 0-10 Blood neutrophils automated count (number/volume) 12.7 10*3 1.8-7.8 Blood lymphocytes automated count (number/volume) 1.1 10*3 1.0-4.0 Blood monocytes automated count (number/volume) 1. 1 10*3 0.0-1.0 Automated eosinophil count 0.0 10*3/uL 0 .0-0.3 Automated blood basophil count (count/volume) 0.0 10*3/uL 0.0-0.1 Comprehensive metabolic panel - 09/09/18 05:05 Serum or plasma sodium measurement (moles/volume) 141 mmol/L 135-145 Serum or plasma potassium measurement (moles/volume) 3.7 mmol/L 3.6-5.0 Serum or plasma chloride measurement (moles/volume) 99 mmol/L 98-107 Carbon dioxide 30 mmol/L 21-32 Serum or plasma anion gap determination (moles/volume) 12 mmol/L 5-14 Serum or plasma urea nitrogen measurement (mass/volume ) 32 mg/dL 7-18 Serum or plasma creatinine measurement (mass/volume) 0.92 mg/dL 0.60-1.30 Serum or plasma urea nitrogen/creatinine mass ratio 35 NRG Serum or plasma creatinine measurement w ith calculation of estimated glomerular filtration rate > NRG Serum or plasma glucose measurement (mass/volume) 163 mg/dL 70-105 Serum or plasma calcium measurement (mass/volume) 8.3 mg/dL 8.5-10.1 Serum or plasma total bilirubin measurement (mass/volu me) 0.8 mg/dL 0.1-1.0 Serum or plasma alkaline phosphatase donnell surement (enzymatic activity/volume) 56 U/L 40-136 Serum or plasma aspartate aminotransfera se measurement (enzymatic activity/volume) 26 U/L 5-34 Serum or plasma alanine aminotransferase measurement (enzymatic activity/volume) 48 U/L 0-55 Serum or plasma protein measurement (mass/volume) 5.4 g/dL 6.4-8.2 Serum or plasma albumin measurement (mass/volume) 3.0 g/dL 3.2-4.5 CALCIUM CORRECTED 9.1 mg/dL 8.5-10.1 Capillary blood glucose measurement by g lucometer (mass/volume) - 09/09/18 05:22 Capillary blood glucose measurement by glucometer (mas s/volume) 154 mg/dL 70-110 Capillary blood glucose measurement by g lucometer (mass/volume) - 09/09/18 12:00 Capillary blood glucose measurement by glucometer (mas s/volume) 267 mg/dL 70-110 Capillary blood glucose measurement by g lucometer (mass/volume) - 09/09/18 17:07 Capillary blood glucose measurement by glucometer (mas s/volume) 139 mg/dL 70-110 Capillary blood glucose measurement by g lucometer (mass/volume) - 09/10/18 00:41 Capillary blood glucose measurement by glucometer (mas s/volume) 194 mg/dL 70-110 Capillary blood glucose measurement by g lucometer (mass/volume) - 09/10/18 05:47 Capillary blood glucose measurement by glucometer (mas s/volume) 119 mg/dL 70-110 Capillary blood glucose measurement by g lucometer (mass/volume) - 09/10/18 11:29 Capillary blood glucose measurement by glucometer (mas s/volume) 184 mg/dL 70-110 Capillary blood glucose measurement by g lucometer (mass/volume) - 09/10/18 17:43 Capillary blood glucose measurement by glucometer (mas s/volume) 162 mg/dL 70-110 Capillary blood glucose measurement by g lucometer (mass/volume) - 09/10/18 23:53 Capillary blood glucose measurement by glucometer (mas s/volume) 206 mg/dL 70-110 Capillary blood glucose measurement by g lucometer (mass/volume) - 09/11/18 05:18 Capillary blood glucose measurement by glucometer (mas s/volume) 99 mg/dL 70-110 Capillary blood glucose measurement by g lucometer (mass/volume) - 09/11/18 12:06 Capillary blood glucose measurement by glucometer (mas s/volume) 188 mg/dL 70-110 Capillary blood glucose measurement by g lucometer (mass/volume) - 09/11/18 17:28 Capillary blood glucose measurement by glucometer (mas s/volume) 231 mg/dL 70-110 Capillary blood glucose measurement by g lucometer (mass/volume) - 09/11/18 23:29 Capillary blood glucose measurement by glucometer (mas s/volume) 139 mg/dL 70-110 Capillary blood glucose measurement by g lucometer (mass/volume) - 09/12/18 05:19 Capillary blood glucose measurement by glucometer (mas s/volume) 133 mg/dL 70-110 Capillary blood glucose measurement by g lucometer (mass/volume) - 09/12/18 12:11 Capillary blood glucose measurement by glucometer (mas s/volume) 236 mg/dL 70-110 Capillary blood glucose measurement by g lucometer (mass/volume) - 09/12/18 17:48 Capillary blood glucose measurement by glucometer (mas s/volume) 180 mg/dL 70-110 Capillary blood glucose measurement by g lucometer (mass/volume) - 09/12/18 23:34 Capillary blood glucose measurement by glucometer (mas s/volume) 173 mg/dL 70-110 Capillary blood glucose measurement by g lucometer (mass/volume) - 09/13/18 05:59 Capillary blood glucose measurement by glucometer (mas s/volume) 112 mg/dL 70-110 Whole blood basic metabolic panel - 08/31 07/19 08:12 Serum or plasma sodium measurement (moles/volume) 139 mmol/L 135-145 Serum or plasma potassium measurement (moles/volume) 4.4 mmol/L 3.6-5.0 Serum or plasma chloride measurement (moles/volume) 100 mmol/L 98-107 Carbon dioxide 29 mmol/L 21-32 Serum or plasma anion gap determination (moles/volume) 10 mmol/L 5-14 Serum or plasma urea nitrogen measurement (mass/volume ) 16 mg/dL 7-18 Serum or plasma creatinine measurement (mass/volume) 0.97 mg/dL 0.60-1.30 Serum or plasma urea nitrogen/creatinine mass ratio 16 NRG Serum or plasma creatinine measurement w ith calculation of estimated glomerular filtration rate > NRG Serum or plasma glucose measurement (mass/volume) 195 mg/dL 70-105 Serum or plasma calcium measurement (mass/volume) 8.9 mg/dL 8.5-10.1 Serum or plasma phosphate measurement (m ass/volume) - 09/13/18 08:12 Serum or plasma phosphate measurement (mass/volume) 2.5 mg/dL 2.3-4.7 Magnesium - 09/13/18 08:12 Magnesium 1.8 mg/dL 1.8-2.4 PT panel in platelet poor plasma by coag ulation assay - 09/18/18 08:55 Prothrombin time (PT) in platelet poor plasma by coagu lation assay 17.1 s 12.2-14.7 INR in platelet poor plasma or blood by coagulation as say 1.3 0.8-1.4 Fibrin D-dimer FEU measurement in platel et poor plasma (mass/volume) - 09/18/18 08:55 Fibrin D-dimer FEU measurement in platelet poor plasma (mass/volume) 1.04 ug/mL 0.00-0.49 Automated blood complete blood count (he mogram) panel - 09/18/18 08:55 Blood leukocytes automated count (number/volume) 9.7 10*3/uL 4.3-11.0 Blood erythrocytes automated count (number/volume) 3.44 10*6/uL 4.35-5.85 Venous blood hemoglobin measurement (mass/volume) 10.8 g/dL 13.3-17.7 Blood hematocrit (volume fraction) 33 % 40-54 Automated erythrocyte mean corpuscular volume 95 [ foz_us] 80-99 Automated erythrocyte mean corpuscular h emoglobin (mass per erythrocyte) 31 pg 25-34 Automated erythrocyte mean corpuscular h emoglobin concentration measurement (mass/volume) 33 g/dL 32-36 Automated erythrocyte distribution width ratio 14. 8 % 10.0- 14.5 Automated blood platelet count (count/volume) 102 10*3/uL 130-400 Automated blood platelet mean volume measurement 10.1 [foz_us] 7.4-10.4 Blood lactic acid measurement (moles/vol ume) - 09/18/18 08:55 Blood lactic acid measurement (moles/volume) 2.28 mmol/L 0.50-2.00 Serum or plasma lithium measurement (mol es/volume) - 09/18/18 08:55 BNP level 66.9 pg/mL <100.0 Comprehensive metabolic panel - 09/18/18 08:55 Serum or plasma sodium measurement (moles/volume) 132 mmol/L 135-145 Serum or plasma potassium measurement (moles/volume) 4.2 mmol/L 3.6-5.0 Serum or plasma chloride measurement (moles/volume) 99 mmol/L 98-107 Carbon dioxide 24 mmol/L 21-32 Serum or plasma anion gap determination (moles/volume) 9 mmol/L 5-14 Serum or plasma urea nitrogen measurement (mass/volume ) 14 mg/dL 7-18 Serum or plasma creatinine measurement (mass/volume) 1.12 mg/dL 0.60-1.30 Serum or plasma urea nitrogen/creatinine mass ratio 13 NRG Serum or plasma creatinine measurement w ith calculation of estimated glomerular filtration rate > NRG Serum or plasma glucose measurement (mass/volume) 191 mg/dL 70-105 Serum or plasma calcium measurement (mass/volume) 8.9 mg/dL 8.5-10.1 Serum or plasma total bilirubin measurement (mass/volu me) 1.6 mg/dL 0.1-1.0 Serum or plasma alkaline phosphatase donnell surement (enzymatic activity/volume) 92 U/L 40-136 Serum or plasma aspartate aminotransfera se measurement (enzymatic activity/volume) 22 U/L 5-34 Serum or plasma alanine aminotransferase measurement (enzymatic activity/volume) 36 U/L 0-55 Serum or plasma protein measurement (mass/volume) 6.2 g/dL 6.4-8.2 Serum or plasma albumin measurement (mass/volume) 3.4 g/dL 3.2-4.5 CALCIUM CORRECTED 9.4 mg/dL 8.5-10.1 Serum or plasma intact pararthyroid horm one measurement (mass/volume) - 09/18/18 08:55 Serum or plasma intact parathyroid hormone measurement (mass/volume) 63.2 pg/mL 9.0-77.0 Bio-intact parathyroid hormone (PTH) measurement with calcium 8.5 % 8.5-10.5 Bacterial blood culture - 09/18/18 08:55 Bacterial blood culture NG NRG Bacterial blood culture - 09/18/18 08:55 Bacterial blood culture NG NRG Sputum Gram stain - 09/18/18 09:32 Sputum Gram stain GRAM STAIN PERFORMED AT [facility] NR Bacterial sputum culture - 09/18/18 09:3 2 QUANTITY OF GROWTH . NRG Bacterial sputum culture USUAL RESP NRG Serum or plasma lactate measurement (mol es/volume) - 09/18/18 11:05 Serum or plasma lactate measurement (moles/volume) 2.68 mmol/L 0.50-2.00 Arterial blood gas measurement - 9 16:34 Blood pCO2 32 mm[Hg] 35-45 Blood pO2 55 mm[Hg] 79-93 Arterial blood bicarbonate measurement (moles/volume) 23 mmol/L 23-27 Arterial blood base excess by calculation 0.2 mmol /L -2.5-2.5 Arterial blood oxygen saturation measurement 92 % 94-100 * Inhaled oxygen flow rate 6L NRG Arterial blood pH measurement with patient temperature correction 7.48 7.37-7.43 Arterial blood carbon dioxide, total measurement (mole s/volume) 24.3 mmol/L 21.0-31.0 Body site L RAD NRG Assessment of wrist artery patency prior to arterial p uncture YES-POS NRG Setting of ventilation mode NO NR G Measurement of body temperature 98.6 NRG Complete blood count (CBC) with automate d white blood cell (WBC) differential - 09/19/18 03:00 Blood leukocytes automated count (number/volume) 8.8 10*3/uL 4.3-11.0 Blood erythrocytes automated count (number/volume) 3.09 10*6/uL 4.35-5.85 Venous blood hemoglobin measurement (mass/volume) 9.6 g/dL 13.3-17.7 Blood hematocrit (volume fraction) 29 % 40-54 Automated erythrocyte mean corpuscular volume 93 [ foz_us] 80-99 Automated erythrocyte mean corpuscular h emoglobin (mass per erythrocyte) 31 pg 25-34 Automated erythrocyte mean corpuscular h emoglobin concentration measurement (mass/volume) 33 g/dL 32-36 Automated erythrocyte distribution width ratio 14. 6 % 10.0- 14.5 Automated blood platelet count (count/volume) 94 1 0*3/uL 130-400 Automated blood platelet mean volume measurement 9.9 [foz_us] 7.4-10.4 Automated blood neutrophils/100 leukocytes 94 % 42-75 Automated blood lymphocytes/100 leukocytes 4 % 12-44 Blood monocytes/100 leukocytes 2 % 0-12 Automated blood eosinophils/100 leukocytes 0 % 0-10 Automated blood basophils/100 leukocytes 0 % 0-10 Blood neutrophils automated count (number/volume) 8.3 10*3 1.8-7.8 Blood lymphocytes automated count (number/volume) 0.3 10*3 1.0-4.0 Blood monocytes automated count (number/volume) 0. 2 10*3 0.0-1.0 Automated eosinophil count 0.0 10*3/uL 0 .0-0.3 Automated blood basophil count (count/volume) 0.0 10*3/uL 0.0-0.1 Comprehensive metabolic panel - 09/19/18 03:00 Serum or plasma sodium measurement (moles/volume) 135 mmol/L 135-145 Serum or plasma potassium measurement (moles/volume) 4.1 mmol/L 3.6-5.0 Serum or plasma chloride measurement (moles/volume) 105 mmol/L 98-107 Carbon dioxide 20 mmol/L 21-32 Serum or plasma anion gap determination (moles/volume) 10 mmol/L 5-14 Serum or plasma urea nitrogen measurement (mass/volume ) 13 mg/dL 7-18 Serum or plasma creatinine measurement (mass/volume) 1.01 mg/dL 0.60-1.30 Serum or plasma urea nitrogen/creatinine mass ratio 13 NRG Serum or plasma creatinine measurement w ith calculation of estimated glomerular filtration rate > NRG Serum or plasma glucose measurement (mass/volume) 311 mg/dL 70-105 Serum or plasma calcium measurement (mass/volume) 8.4 mg/dL 8.5-10.1 Serum or plasma total bilirubin measurement (mass/volu me) 1.0 mg/dL 0.1-1.0 Serum or plasma alkaline phosphatase donnell surement (enzymatic activity/volume) 82 U/L 40-136 Serum or plasma aspartate aminotransfera se measurement (enzymatic activity/volume) 19 U/L 5-34 Serum or plasma alanine aminotransferase measurement (enzymatic activity/volume) 31 U/L 0-55 Serum or plasma protein measurement (mass/volume) 5.9 g/dL 6.4-8.2 Serum or plasma albumin measurement (mass/volume) 3.1 g/dL 3.2-4.5 CALCIUM CORRECTED 9.1 mg/dL 8.5-10.1 Blood lactic acid measurement (moles/vol ume) - 09/19/18 03:00 Blood lactic acid measurement (moles/volume) 2.81 mmol/L 0.50-2.00 Magnesium - 09/19/18 03:00 Magnesium 1.8 mg/dL 1.8-2.4 Serum or plasma lactate measurement (mol es/volume) - 09/19/18 04:55 Serum or plasma lactate measurement (moles/volume) 2.93 mmol/L 0.50-2.00 Blood lactic acid measurement (moles/vol ume) - 09/19/18 11:06 Blood lactic acid measurement (moles/volume) 3.20 mmol/L 0.50-2.00 Capillary blood glucose measurement by g lucometer (mass/volume) - 09/19/18 12:22 Capillary blood glucose measurement by glucometer (mas s/volume) 260 mg/dL 70-110 Serum or plasma lactate measurement (mol es/volume) - 09/19/18 13:44 Serum or plasma lactate measurement (moles/volume) 3.97 mmol/L 0.50-2.00 Capillary blood glucose measurement by g lucometer (mass/volume) - 09/19/18 18:44 Capillary blood glucose measurement by glucometer (mas s/volume) 269 mg/dL 70-110 Capillary blood glucose measurement by g lucometer (mass/volume) - 09/20/18 00:12 Capillary blood glucose measurement by glucometer (mas s/volume) 192 mg/dL 70-110 Serum or plasma lithium measurement (mol es/volume) - 09/20/18 02:25 BNP PT 1270.7 pg/mL <100.0 Complete blood count (CBC) with automate d white blood cell (WBC) differential - 09/20/18 02:55 Blood leukocytes automated count (number/volume) 14.4 10*3/uL 4.3-11.0 Blood erythrocytes automated count (number/volume) 3.49 10*6/uL 4.35-5.85 Venous blood hemoglobin measurement (mass/volume) 10.8 g/dL 13.3-17.7 Blood hematocrit (volume fraction) 32 % 40-54 Automated erythrocyte mean corpuscular volume 93 [ foz_us] 80-99 Automated erythrocyte mean corpuscular h emoglobin (mass per erythrocyte) 31 pg 25-34 Automated erythrocyte mean corpuscular h emoglobin concentration measurement (mass/volume) 33 g/dL 32-36 Automated erythrocyte distribution width ratio 14. 8 % 10.0- 14.5 Automated blood platelet count (count/volume) 117 10*3/uL 130-400 Automated blood platelet mean volume measurement 10.0 [foz_us] 7.4-10.4 Automated blood neutrophils/100 leukocytes 94 % 42-75 Automated blood lymphocytes/100 leukocytes 3 % 12-44 Blood monocytes/100 leukocytes 3 % 0-12 Automated blood eosinophils/100 leukocytes 0 % 0-10 Automated blood basophils/100 leukocytes 0 % 0-10 Blood neutrophils automated count (number/volume) 13.6 10*3 1.8-7.8 Blood lymphocytes automated count (number/volume) 0.5 10*3 1.0-4.0 Blood monocytes automated count (number/volume) 0. 4 10*3 0.0-1.0 Automated eosinophil count 0.0 10*3/uL 0 .0-0.3 Automated blood basophil count (count/volume) 0.0 10*3/uL 0.0-0.1 Serum or plasma phosphate measurement (m ass/volume) - 09/20/18 02:55 Serum or plasma phosphate measurement (mass/volume) 3.0 mg/dL 2.3-4.7 Magnesium - 09/20/18 02:55 Magnesium 2.1 mg/dL 1.8-2.4 Comprehensive metabolic panel - 09/20/18 02:55 Serum or plasma sodium measurement (moles/volume) 141 mmol/L 135-145 Serum or plasma potassium measurement (moles/volume) 3.2 mmol/L 3.6-5.0 Serum or plasma chloride measurement (moles/volume) 109 mmol/L 98-107 Carbon dioxide 21 mmol/L 21-32 Serum or plasma anion gap determination (moles/volume) 11 mmol/L 5-14 Serum or plasma urea nitrogen measurement (mass/volume ) 14 mg/dL 7-18 Serum or plasma creatinine measurement (mass/volume) 1.02 mg/dL 0.60-1.30 Serum or plasma urea nitrogen/creatinine mass ratio 14 NRG Serum or plasma creatinine measurement w ith calculation of estimated glomerular filtration rate > NRG Serum or plasma glucose measurement (mass/volume) 207 mg/dL 70-105 Serum or plasma calcium measurement (mass/volume) 8.6 mg/dL 8.5-10.1 Serum or plasma total bilirubin measurement (mass/volu me) 0.7 mg/dL 0.1-1.0 Serum or plasma alkaline phosphatase donnell surement (enzymatic activity/volume) 85 U/L 40-136 Serum or plasma aspartate aminotransfera se measurement (enzymatic activity/volume) 38 U/L 5-34 Serum or plasma alanine aminotransferase measurement (enzymatic activity/volume) 53 U/L 0-55 Serum or plasma protein measurement (mass/volume) 6.4 g/dL 6.4-8.2 Serum or plasma albumin measurement (mass/volume) 3.3 g/dL 3.2-4.5 CALCIUM CORRECTED 9.2 mg/dL 8.5-10.1 DIGOXIN - 09/20/18 02:55 DIGOXIN < 0.30 0.80-2.00 Manual absolute plasma cell count - 09/01 04/20 02:55 Blood monocytes/100 leukocytes 2 % NRG Manual blood segmented neutrophils/100 leukocytes 93 % NRG Manual blood lymphocytes/100 leukocytes 5 % NRG Arterial blood gas measurement - 9 07:00 Blood pCO2 27 mm[Hg] 35-45 Blood pO2 58 mm[Hg] 79-93 Arterial blood bicarbonate measurement (moles/volume) 22 mmol/L 23-27 Arterial blood base excess by calculation -0.8 mmo l/L -2.5-2.5 Arterial blood oxygen saturation measurement 94 % 94-100 * Inhaled oxygen flow rate 80 NRG Arterial blood pH measurement with patient temperature correction 7.51 7.37-7.43 Arterial blood carbon dioxide, total measurement (mole s/volume) 22.9 mmol/L 21.0-31.0 Body site RT RADIAL NRG Assessment of wrist artery patency prior to arterial p uncture YES-POS NRG Setting of ventilation mode NO NR G Measurement of body temperature 96.6 NRG Complete urinalysis with reflex to cultu re - 09/20/18 09:20 Urine color determination YELLOW NRG Urine clarity determination CLEAR NR G Urine pH measurement by test strip 5 5-9 Specific gravity of urine by test strip 1.015 1.016-1.022 Urine protein assay by test strip, semi-quantitative 1+ NEGATIVE Urine glucose detection by automated test strip 3+ NEGATIVE Erythrocytes detection in urine sediment by light micr oscopy NEGATIVE NEGATIVE Urine ketones detection by automated test strip NE GATIVE NEGATIVE Urine nitrite detection by test strip NEGATIVE NEGATIVE Urine total bilirubin detection by test strip NEGA TIVE NEGATIVE Urine urobilinogen measurement by automated test strip (mass/volume) NORMAL NORMAL Urine leukocyte esterase detection by dipstick NEG ATIVE NEGATIVE Automated urine sediment erythrocyte cou nt by microscopy (number/high power field) NONE NRG Automated urine sediment leukocyte count by microscopy (number/high power field) RARE NRG Bacteria detection in urine sediment by light microsco py NEGATIVE NRG Squamous epithelial cells detection in u rine sediment by light microscopy NONE NRG Crystals detection in urine sediment by light microsco py NONE NRG Casts detection in urine sediment by light microscopy NONE NRG Mucus detection in urine sediment by light microscopy NEGATIVE NRG Complete urinalysis with reflex to culture NO NRG Capillary blood glucose measurement by g lucometer (mass/volume) - 09/20/18 11:29 Capillary blood glucose measurement by glucometer (mas s/volume) 247 mg/dL 70-110 Capillary blood glucose measurement by g lucometer (mass/volume) - 09/20/18 18:59 Capillary blood glucose measurement by glucometer (mas s/volume) 253 mg/dL 70-110 Capillary blood glucose measurement by g lucometer (mass/volume) - 09/21/18 00:34 Capillary blood glucose measurement by glucometer (mas s/volume) 254 mg/dL 70-110 Complete blood count (CBC) with automate d white blood cell (WBC) differential - 09/21/18 03:00 Blood leukocytes automated count (number/volume) 12.7 10*3/uL 4.3-11.0 Blood erythrocytes automated count (number/volume) 3.39 10*6/uL 4.35-5.85 Venous blood hemoglobin measurement (mass/volume) 10.5 g/dL 13.3-17.7 Blood hematocrit (volume fraction) 31 % 40-54 Automated erythrocyte mean corpuscular volume 92 [ foz_us] 80-99 Automated erythrocyte mean corpuscular h emoglobin (mass per erythrocyte) 31 pg 25-34 Automated erythrocyte mean corpuscular h emoglobin concentration measurement (mass/volume) 34 g/dL 32-36 Automated erythrocyte distribution width ratio 14. 8 % 10.0- 14.5 Automated blood platelet count (count/volume) 132 10*3/uL 130-400 Automated blood platelet mean volume measurement 9.7 [foz_us] 7.4-10.4 Automated blood neutrophils/100 leukocytes 92 % 42-75 Automated blood lymphocytes/100 leukocytes 6 % 12-44 Blood monocytes/100 leukocytes 3 % 0-12 Automated blood eosinophils/100 leukocytes 0 % 0-10 Automated blood basophils/100 leukocytes 0 % 0-10 Blood neutrophils automated count (number/volume) 11.6 10*3 1.8-7.8 Blood lymphocytes automated count (number/volume) 0.7 10*3 1.0-4.0 Blood monocytes automated count (number/volume) 0. 4 10*3 0.0-1.0 Automated eosinophil count 0.0 10*3/uL 0 .0-0.3 Automated blood basophil count (count/volume) 0.0 10*3/uL 0.0-0.1 Serum or plasma phosphate measurement (m ass/volume) - 09/21/18 03:00 Serum or plasma phosphate measurement (mass/volume) 1.9 mg/dL 2.3-4.7 Magnesium - 09/21/18 03:00 Magnesium 1.9 mg/dL 1.8-2.4 Comprehensive metabolic panel - 09/21/18 03:00 Serum or plasma sodium measurement (moles/volume) 139 mmol/L 135-145 Serum or plasma potassium measurement (moles/volume) 3.2 mmol/L 3.6-5.0 Serum or plasma chloride measurement (moles/volume) 106 mmol/L 98-107 Carbon dioxide 22 mmol/L 21-32 Serum or plasma anion gap determination (moles/volume) 11 mmol/L 5-14 Serum or plasma urea nitrogen measurement (mass/volume ) 16 mg/dL 7-18 Serum or plasma creatinine measurement (mass/volume) 0.90 mg/dL 0.60-1.30 Serum or plasma urea nitrogen/creatinine mass ratio 18 NRG Serum or plasma creatinine measurement w ith calculation of estimated glomerular filtration rate > NRG Serum or plasma glucose measurement (mass/volume) 184 mg/dL 70-105 Serum or plasma calcium measurement (mass/volume) 8.4 mg/dL 8.5-10.1 Serum or plasma total bilirubin measurement (mass/volu me) 0.6 mg/dL 0.1-1.0 Serum or plasma alkaline phosphatase donnell surement (enzymatic activity/volume) 84 U/L 40-136 Serum or plasma aspartate aminotransfera se measurement (enzymatic activity/volume) 27 U/L 5-34 Serum or plasma alanine aminotransferase measurement (enzymatic activity/volume) 48 U/L 0-55 Serum or plasma protein measurement (mass/volume) 5.6 g/dL 6.4-8.2 Serum or plasma albumin measurement (mass/volume) 3.0 g/dL 3.2-4.5 CALCIUM CORRECTED 9.2 mg/dL 8.5-10.1 Whole blood basic metabolic panel - 09/01 05/21 03:00 Serum or plasma sodium measurement (moles/volume) 140 mmol/L 135-145 Serum or plasma potassium measurement (moles/volume) 3.2 mmol/L 3.6-5.0 Serum or plasma chloride measurement (moles/volume) 106 mmol/L 98-107 Carbon dioxide 21 mmol/L 21-32 Serum or plasma anion gap determination (moles/volume) 13 mmol/L 5-14 Serum or plasma urea nitrogen measurement (mass/volume ) 16 mg/dL 7-18 Serum or plasma creatinine measurement (mass/volume) 0.91 mg/dL 0.60-1.30 Serum or plasma urea nitrogen/creatinine mass ratio 18 NRG Serum or plasma creatinine measurement w ith calculation of estimated glomerular filtration rate > NRG Serum or plasma glucose measurement (mass/volume) 185 mg/dL 70-105 Serum or plasma calcium measurement (mass/volume) 8.5 mg/dL 8.5-10.1 Serum or plasma triglyceride measurement (mass/volume) - 09/21/18 03:00 Serum or plasma triglyceride measurement (mass/volume) 80 mg/dL <150 Serum or plasma lithium measurement (mol es/volume) - 09/21/18 03:00 BNP PT 823.9 pg/mL <100.0 PT panel in platelet poor plasma by coag ulation assay - 09/21/18 08:03 Prothrombin time (PT) in platelet poor plasma by coagu lation assay 18.2 s 12.2-14.7 INR in platelet poor plasma or blood by coagulation as say 1.4 0.8-1.4 Activated partial thromboplastin time (a PTT) in platelet poor plasma bycoagulation assay - 09/21/18 08:03 Activated partial thromboplastin time (a PTT) in platelet poor plasma bycoagulation assay 27 s 24-35 Arterial blood gas measurement - 9 08:45 Blood pCO2 39 mm[Hg] 35-45 Blood pO2 341 mm[Hg] 79-93 Arterial blood bicarbonate measurement (moles/volume) 25 mmol/L 23-27 Arterial blood base excess by calculation 0.8 mmol /L -2.5-2.5 Arterial blood oxygen saturation measurement 100 % 94-100 * Inhaled oxygen flow rate 100% NRG Arterial blood pH measurement with patient temperature correction 7.42 7.37-7.43 Arterial blood carbon dioxide, total measurement (mole s/volume) 26.1 mmol/L 21.0-31.0 Body site RT RAD NRG Assessment of wrist artery patency prior to arterial p uncture YES-POS NRG Setting of ventilation mode YES NR G Measurement of body temperature 97.4 NRG Sputum Gram stain - 09/21/18 10:00 Sputum Gram stain No bacteria seen NRG Bacteria identification in bronchial spe cimen by aerobe culture - 09/21/18 10:00 QUANTITY OF GROWTH . NRG Bacteria identification in bronchial specimen by aerob e culture USUAL RESP NRG Mycobacterium species detection by organ ism specific culture - 09/21/18 10:00 AFBFTX1 AFB SMEAR NEGATIVE, CULTURE IN PROGRESS NRG AFBFTX2 CULTURES ARE OBSERVED WEEKLY, 4 WEEKS NRG AFBFTX3 REQUIRED FOR A PRELIM NEG CULTURE REPORT NRG Fungus culture - 09/21/18 10:00 Fungus culture NG NRG Capillary blood glucose measurement by g lucometer (mass/volume) - 09/21/18 12:06 Capillary blood glucose measurement by glucometer (mas s/volume) 172 mg/dL 70-110 Capillary blood glucose measurement by g lucometer (mass/volume) - 09/21/18 18:06 Capillary blood glucose measurement by glucometer (mas s/volume) 265 mg/dL 70-110 Capillary blood glucose measurement by g lucometer (mass/volume) - 09/21/18 23:22 Capillary blood glucose measurement by glucometer (mas s/volume) 267 mg/dL 70-110 Complete blood count (CBC) with automate d white blood cell (WBC) differential - 09/22/18 03:33 Blood leukocytes automated count (number/volume) 6.9 10*3/uL 4.3-11.0 Blood erythrocytes automated count (number/volume) 3.50 10*6/uL 4.35-5.85 Venous blood hemoglobin measurement (mass/volume) 10.8 g/dL 13.3-17.7 Blood hematocrit (volume fraction) 32 % 40-54 Automated erythrocyte mean corpuscular volume 92 [ foz_us] 80-99 Automated erythrocyte mean corpuscular h emoglobin (mass per erythrocyte) 31 pg 25-34 Automated erythrocyte mean corpuscular h emoglobin concentration measurement (mass/volume) 34 g/dL 32-36 Automated erythrocyte distribution width ratio 14. 3 % 10.0- 14.5 Automated blood platelet count (count/volume) 123 10*3/uL 130-400 Automated blood platelet mean volume measurement 9.8 [foz_us] 7.4-10.4 Automated blood neutrophils/100 leukocytes 91 % 42-75 Automated blood lymphocytes/100 leukocytes 6 % 12-44 Blood monocytes/100 leukocytes 3 % 0-12 Automated blood eosinophils/100 leukocytes 0 % 0-10 Automated blood basophils/100 leukocytes 0 % 0-10 Blood neutrophils automated count (number/volume) 6.3 10*3 1.8-7.8 Blood lymphocytes automated count (number/volume) 0.4 10*3 1.0-4.0 Blood monocytes automated count (number/volume) 0. 2 10*3 0.0-1.0 Automated eosinophil count 0.0 10*3/uL 0 .0-0.3 Automated blood basophil count (count/volume) 0.0 10*3/uL 0.0-0.1 Arterial blood gas measurement - 9 03:33 Blood pCO2 36 mm[Hg] 35-45 Blood pO2 69 mm[Hg] 79-93 Arterial blood bicarbonate measurement (moles/volume) 23 mmol/L 23-27 Arterial blood base excess by calculation -0.7 mmo l/L -2.5-2.5 Arterial blood oxygen saturation measurement 96 % 94-100 * Inhaled oxygen flow rate 30% NRG Arterial blood pH measurement with patient temperature correction 7.43 7.37-7.43 Arterial blood carbon dioxide, total measurement (mole s/volume) 24.1 mmol/L 21.0-31.0 Body site RIGHT RADIAL NRG Assessment of wrist artery patency prior to arterial p uncture POSITIVE NRG Setting of ventilation mode YES NR G Measurement of body temperature 99.1 NRG Comprehensive metabolic panel - 09/22/18 03:33 Serum or plasma sodium measurement (moles/volume) 141 mmol/L 135-145 Serum or plasma potassium measurement (moles/volume) 3.8 mmol/L 3.6-5.0 Serum or plasma chloride measurement (moles/volume) 107 mmol/L 98-107 Carbon dioxide 20 mmol/L 21-32 Serum or plasma anion gap determination (moles/volume) 14 mmol/L 5-14 Serum or plasma urea nitrogen measurement (mass/volume ) 18 mg/dL 7-18 Serum or plasma creatinine measurement (mass/volume) 1.05 mg/dL 0.60-1.30 Serum or plasma urea nitrogen/creatinine mass ratio 17 NRG Serum or plasma creatinine measurement w ith calculation of estimated glomerular filtration rate > NRG Serum or plasma glucose measurement (mass/volume) 239 mg/dL 70-105 Serum or plasma calcium measurement (mass/volume) 8.3 mg/dL 8.5-10.1 Serum or plasma total bilirubin measurement (mass/volu me) 0.5 mg/dL 0.1-1.0 Serum or plasma alkaline phosphatase donnell surement (enzymatic activity/volume) 71 U/L 40-136 Serum or plasma aspartate aminotransfera se measurement (enzymatic activity/volume) 13 U/L 5-34 Serum or plasma alanine aminotransferase measurement (enzymatic activity/volume) 43 U/L 0-55 Serum or plasma protein measurement (mass/volume) 5.8 g/dL 6.4-8.2 Serum or plasma albumin measurement (mass/volume) 3.1 g/dL 3.2-4.5 CALCIUM CORRECTED 9.0 mg/dL 8.5-10.1 Serum or plasma phosphate measurement (m ass/volume) - 09/22/18 03:33 Serum or plasma phosphate measurement (mass/volume) 2.8 mg/dL 2.3-4.7 Magnesium - 09/22/18 03:33 Magnesium 2.0 mg/dL 1.8-2.4 Capillary blood glucose measurement by g lucometer (mass/volume) - 09/22/18 11:58 Capillary blood glucose measurement by glucometer (mas s/volume) 208 mg/dL 70-110 Capillary blood glucose measurement by g lucometer (mass/volume) - 09/22/18 17:10 Capillary blood glucose measurement by glucometer (mas s/volume) 179 mg/dL 70-110 Capillary blood glucose measurement by g lucometer (mass/volume) - 09/22/18 23:38 Capillary blood glucose measurement by glucometer (mas s/volume) 220 mg/dL 70-110 Arterial blood gas measurement - 9 03:45 Blood pCO2 34 mm[Hg] 35-45 Blood pO2 57 mm[Hg] 79-93 Arterial blood bicarbonate measurement (moles/volume) 27 mmol/L 23-27 Arterial blood base excess by calculation 3.4 mmol /L -2.5-2.5 Arterial blood oxygen saturation measurement 94 % 94-100 * Inhaled oxygen flow rate 30% NRG Arterial blood pH measurement with patient temperature correction 7.50 7.37-7.43 Arterial blood carbon dioxide, total measurement (mole s/volume) 28.0 mmol/L 21.0-31.0 Body site LEFT RADIAL NRG Assessment of wrist artery patency prior to arterial p uncture POSITIVE NRG Setting of ventilation mode YES NR G Measurement of body temperature 96 NRG Complete blood count (CBC) with automate d white blood cell (WBC) differential - 09/23/18 03:45 Blood leukocytes automated count (number/volume) 5.2 10*3/uL 4.3-11.0 Blood erythrocytes automated count (number/volume) 3.55 10*6/uL 4.35-5.85 Venous blood hemoglobin measurement (mass/volume) 10.9 g/dL 13.3-17.7 Blood hematocrit (volume fraction) 33 % 40-54 Automated erythrocyte mean corpuscular volume 93 [ foz_us] 80-99 Automated erythrocyte mean corpuscular h emoglobin (mass per erythrocyte) 31 pg 25-34 Automated erythrocyte mean corpuscular h emoglobin concentration measurement (mass/volume) 33 g/dL 32-36 Automated erythrocyte distribution width ratio 14. 8 % 10.0- 14.5 Automated blood platelet count (count/volume) 140 10*3/uL 130-400 Automated blood platelet mean volume measurement 9.7 [foz_us] 7.4-10.4 Automated blood neutrophils/100 leukocytes 87 % 42-75 Automated blood lymphocytes/100 leukocytes 8 % 12-44 Blood monocytes/100 leukocytes 5 % 0-12 Automated blood eosinophils/100 leukocytes 0 % 0-10 Automated blood basophils/100 leukocytes 0 % 0-10 Blood neutrophils automated count (number/volume) 4.5 10*3 1.8-7.8 Blood lymphocytes automated count (number/volume) 0.4 10*3 1.0-4.0 Blood monocytes automated count (number/volume) 0. 3 10*3 0.0-1.0 Automated eosinophil count 0.0 10*3/uL 0 .0-0.3 Automated blood basophil count (count/volume) 0.0 10*3/uL 0.0-0.1 Comprehensive metabolic panel - 09/23/18 03:45 Serum or plasma sodium measurement (moles/volume) 141 mmol/L 135-145 Serum or plasma potassium measurement (moles/volume) 3.0 mmol/L 3.6-5.0 Serum or plasma chloride measurement (moles/volume) 105 mmol/L 98-107 Carbon dioxide 23 mmol/L 21-32 Serum or plasma anion gap determination (moles/volume) 13 mmol/L 5-14 Serum or plasma urea nitrogen measurement (mass/volume ) 19 mg/dL 7-18 Serum or plasma creatinine measurement (mass/volume) 0.76 mg/dL 0.60-1.30 Serum or plasma urea nitrogen/creatinine mass ratio 25 NRG Serum or plasma creatinine measurement w ith calculation of estimated glomerular filtration rate > NRG Serum or plasma glucose measurement (mass/volume) 224 mg/dL 70-105 Serum or plasma calcium measurement (mass/volume) 7.8 mg/dL 8.5-10.1 Serum or plasma total bilirubin measurement (mass/volu me) 0.6 mg/dL 0.1-1.0 Serum or plasma alkaline phosphatase donnell surement (enzymatic activity/volume) 60 U/L 40-136 Serum or plasma aspartate aminotransfera se measurement (enzymatic activity/volume) 13 U/L 5-34 Serum or plasma alanine aminotransferase measurement (enzymatic activity/volume) 31 U/L 0-55 Serum or plasma protein measurement (mass/volume) 5.0 g/dL 6.4-8.2 Serum or plasma albumin measurement (mass/volume) 2.8 g/dL 3.2-4.5 CALCIUM CORRECTED 8.8 mg/dL 8.5-10.1 Magnesium - 09/23/18 03:45 Magnesium 2.0 mg/dL 1.8-2.4 Serum or plasma triglyceride measurement (mass/volume) - 09/23/18 03:45 Serum or plasma triglyceride measurement (mass/volume) 126 mg/dL <150 Serum or plasma phosphate measurement (m ass/volume) - 09/23/18 03:45 Serum or plasma phosphate measurement (mass/volume) 2.7 mg/dL 2.3-4.7 Capillary blood glucose measurement by g lucometer (mass/volume) - 09/23/18 11:20 Capillary blood glucose measurement by glucometer (mas s/volume) 190 mg/dL 70-110 Capillary blood glucose measurement by g lucometer (mass/volume) - 09/23/18 17:29 Capillary blood glucose measurement by glucometer (mas s/volume) 185 mg/dL 70-110 Capillary blood glucose measurement by g lucometer (mass/volume) - 09/23/18 23:33 Capillary blood glucose measurement by glucometer (mas s/volume) 153 mg/dL 70-110 Complete blood count (CBC) with automate d white blood cell (WBC) differential - 09/24/18 03:45 Blood leukocytes automated count (number/volume) 6.0 10*3/uL 4.3-11.0 Blood erythrocytes automated count (number/volume) 3.62 10*6/uL 4.35-5.85 Venous blood hemoglobin measurement (mass/volume) 11.2 g/dL 13.3-17.7 Blood hematocrit (volume fraction) 34 % 40-54 Automated erythrocyte mean corpuscular volume 94 [ foz_us] 80-99 Automated erythrocyte mean corpuscular h emoglobin (mass per erythrocyte) 31 pg 25-34 Automated erythrocyte mean corpuscular h emoglobin concentration measurement (mass/volume) 33 g/dL 32-36 Automated erythrocyte distribution width ratio 14. 9 % 10.0- 14.5 Automated blood platelet count (count/volume) 162 10*3/uL 130-400 Automated blood platelet mean volume measurement 10.0 [foz_us] 7.4-10.4 Automated blood neutrophils/100 leukocytes 81 % 42-75 Automated blood lymphocytes/100 leukocytes 12 % 12-44 Blood monocytes/100 leukocytes 8 % 0-12 Automated blood eosinophils/100 leukocytes 0 % 0-10 Automated blood basophils/100 leukocytes 0 % 0-10 Blood neutrophils automated count (number/volume) 4.8 10*3 1.8-7.8 Blood lymphocytes automated count (number/volume) 0.7 10*3 1.0-4.0 Blood monocytes automated count (number/volume) 0. 5 10*3 0.0-1.0 Automated eosinophil count 0.0 10*3/uL 0 .0-0.3 Automated blood basophil count (count/volume) 0.0 10*3/uL 0.0-0.1 Arterial blood gas measurement - 9 03:45 Blood pCO2 38 mm[Hg] 35-45 Blood pO2 71 mm[Hg] 79-93 Arterial blood bicarbonate measurement (moles/volume) 25 mmol/L 23-27 Arterial blood base excess by calculation 0.4 mmol /L -2.5-2.5 Arterial blood oxygen saturation measurement 96 % 94-100 * Inhaled oxygen flow rate 30% VENT NRG Arterial blood pH measurement with patient temperature correction 7.42 7.37-7.43 Arterial blood carbon dioxide, total measurement (mole s/volume) 25.7 mmol/L 21.0-31.0 Body site LEFT RADIAL NRG Assessment of wrist artery patency prior to arterial p uncture POSTIVE NRG Setting of ventilation mode YES NR G Measurement of body temperature 97.6 NRG Comprehensive metabolic panel - 09/24/18 03:45 Serum or plasma sodium measurement (moles/volume) 138 mmol/L 135-145 Serum or plasma potassium measurement (moles/volume) 5.4 mmol/L 3.6-5.0 Serum or plasma chloride measurement (moles/volume) 107 mmol/L 98-107 Carbon dioxide 22 mmol/L 21-32 Serum or plasma anion gap determination (moles/volume) 9 mmol/L 5-14 Serum or plasma urea nitrogen measurement (mass/volume ) 27 mg/dL 7-18 Serum or plasma creatinine measurement (mass/volume) 0.81 mg/dL 0.60-1.30 Serum or plasma urea nitrogen/creatinine mass ratio 33 NRG Serum or plasma creatinine measurement w ith calculation of estimated glomerular filtration rate > NRG Serum or plasma glucose measurement (mass/volume) 199 mg/dL 70-105 Serum or plasma calcium measurement (mass/volume) 8.0 mg/dL 8.5-10.1 Serum or plasma total bilirubin measurement (mass/volu me) 0.6 mg/dL 0.1-1.0 Serum or plasma alkaline phosphatase donnell surement (enzymatic activity/volume) 54 U/L 40-136 Serum or plasma aspartate aminotransfera se measurement (enzymatic activity/volume) 15 U/L 5-34 Serum or plasma alanine aminotransferase measurement (enzymatic activity/volume) 29 U/L 0-55 Serum or plasma protein measurement (mass/volume) 5.1 g/dL 6.4-8.2 Serum or plasma albumin measurement (mass/volume) 2.7 g/dL 3.2-4.5 CALCIUM CORRECTED 9.0 mg/dL 8.5-10.1 Serum or plasma phosphate measurement (m ass/volume) - 09/24/18 03:45 Serum or plasma phosphate measurement (mass/volume) 2.8 mg/dL 2.3-4.7 Magnesium - 09/24/18 03:45 Magnesium 2.2 mg/dL 1.8-2.4 Sputum Gram stain - 09/24/18 06:34 Sputum Gram stain No bacteria seen NRG Bacteria identification in bronchial spe cimen by aerobe culture - 09/24/18 06:34 QUANTITY OF GROWTH . NRG Bacteria identification in bronchial specimen by aerob e culture [id number] NRG FTX;REPORTABLE 3,000 CFU/ML NRG FREE TEXT ENTRY 2 SUSCEPTIBILTIY REPORTED 09/26/18 12:45 NRG FREE TEXT ENTRY 3 ID REPORTED 09/25/18 14:05 NRG Dirithromycin susceptibility test by dis k diffusion - 09/24/18 06:34 Gentamicin susceptibility test by minimum inhibitory c oncentration <= NRG Trimethoprim/sulfamethoxazole susceptibi lity test by minimum inhibitoryconcentration S NRG Levofloxacin susceptibility test by minimum inhibitory concentration <= NRG Ampicillin susceptibility test by minimum inhibitory c oncentration > NRG Cefazolin susceptibility test by minimum inhibitory co ncentration > NRG Ceftriaxone susceptibility test by minimum inhibitory concentration <= NRG Piperacillin/tazobactam susceptibility t est by minimum inhibitory concentration = NRG Ciprofloxacin susceptibility test by minimum inhibitor y concentration <= NRG Meropenem susceptibility test by minimum inhibitory co ncentration <= NRG Amoxicillin and clavulanate potassium susc NEAL > NRG Mycobacterium species detection by organ ism specific culture - 09/24/18 06:34 Fungus culture - 09/24/18 06:34 QUANTITY OF GROWTH Many NRG FTX;REPORTABLE ID REPORTED 09/25/18 15:05 NRG Fungus culture [id number] NRG Note: Stacie krusei is innately resistant to fluconazole NRG CAP REFERENCE (Reference: CAP Final Criti que 2007 F1-B p.10) NRG Sputum Gram stain - 09/24/18 06:35 Sputum Gram stain No bacteria seen NRG Bacteria identification in bronchial spe cimen by aerobe culture - 09/24/18 06:35 QUANTITY OF GROWTH . NRG Bacteria identification in bronchial specimen by aerob e culture [id number] NRG FTX;REPORTABLE 200 CFU/ML NRG FREE TEXT ENTRY 2 REFER TO PREV CULTURE FOR SUCEPT IBILITY NRG FREE TEXT ENTRY 3 ID REPORTED 09/25/18 14:05 NRG Fungus culture - 09/24/18 06:35 QUANTITY OF GROWTH Rare NRG Fungus culture [id number] NRG Mycobacterium species detection by organ ism specific culture - 09/24/18 06:35 Arterial blood gas measurement - 9 08:35 Blood pCO2 34 mm[Hg] 35-45 Blood pO2 80 mm[Hg] 79-93 Arterial blood bicarbonate measurement (moles/volume) 24 mmol/L 23-27 Arterial blood base excess by calculation 0.7 mmol /L -2.5-2.5 Arterial blood oxygen saturation measurement 98 % 94-100 * Inhaled oxygen flow rate 30 NRG Arterial blood pH measurement with patient temperature correction 7.46 7.37-7.43 Arterial blood carbon dioxide, total measurement (mole s/volume) 25.4 mmol/L 21.0-31.0 Body site R RAD NRG Assessment of wrist artery patency prior to arterial p uncture YES-POS NRG Setting of ventilation mode YES NR G Measurement of body temperature 96.6 NRG Capillary blood glucose measurement by g lucometer (mass/volume) - 09/24/18 11:47 Capillary blood glucose measurement by glucometer (mas s/volume) 200 mg/dL 70-110 Capillary blood glucose measurement by g lucometer (mass/volume) - 09/24/18 16:45 Capillary blood glucose measurement by glucometer (mas s/volume) 131 mg/dL 70-110 Capillary blood glucose measurement by g lucometer (mass/volume) - 09/24/18 23:43 Capillary blood glucose measurement by glucometer (mas s/volume) 162 mg/dL 70-110 Complete blood count (CBC) with automate d white blood cell (WBC) differential - 09/25/18 03:25 Blood leukocytes automated count (number/volume) 7.4 10*3/uL 4.3-11.0 Blood erythrocytes automated count (number/volume) 3.59 10*6/uL 4.35-5.85 Venous blood hemoglobin measurement (mass/volume) 10.9 g/dL 13.3-17.7 Blood hematocrit (volume fraction) 33 % 40-54 Automated erythrocyte mean corpuscular volume 92 [ foz_us] 80-99 Automated erythrocyte mean corpuscular h emoglobin (mass per erythrocyte) 30 pg 25-34 Automated erythrocyte mean corpuscular h emoglobin concentration measurement (mass/volume) 33 g/dL 32-36 Automated erythrocyte distribution width ratio 15. 2 % 10.0- 14.5 Automated blood platelet count (count/volume) 213 10*3/uL 130-400 Automated blood platelet mean volume measurement 10.0 [foz_us] 7.4-10.4 Automated blood neutrophils/100 leukocytes 82 % 42-75 Automated blood lymphocytes/100 leukocytes 11 % 12-44 Blood monocytes/100 leukocytes 6 % 0-12 Automated blood eosinophils/100 leukocytes 0 % 0-10 Automated blood basophils/100 leukocytes 0 % 0-10 Blood neutrophils automated count (number/volume) 6.1 10*3 1.8-7.8 Blood lymphocytes automated count (number/volume) 0.8 10*3 1.0-4.0 Blood monocytes automated count (number/volume) 0. 5 10*3 0.0-1.0 Automated eosinophil count 0.0 10*3/uL 0 .0-0.3 Automated blood basophil count (count/volume) 0.0 10*3/uL 0.0-0.1 Comprehensive metabolic panel - 09/25/18 03:25 Serum or plasma sodium measurement (moles/volume) 138 mmol/L 135-145 Serum or plasma potassium measurement (moles/volume) 4.2 mmol/L 3.6-5.0 Serum or plasma chloride measurement (moles/volume) 106 mmol/L 98-107 Carbon dioxide 22 mmol/L 21-32 Serum or plasma anion gap determination (moles/volume) 10 mmol/L 5-14 Serum or plasma urea nitrogen measurement (mass/volume ) 33 mg/dL 7-18 Serum or plasma creatinine measurement (mass/volume) 0.83 mg/dL 0.60-1.30 Serum or plasma urea nitrogen/creatinine mass ratio 40 NRG Serum or plasma creatinine measurement w ith calculation of estimated glomerular filtration rate > NRG Serum or plasma glucose measurement (mass/volume) 171 mg/dL 70-105 Serum or plasma calcium measurement (mass/volume) 8.0 mg/dL 8.5-10.1 Serum or plasma total bilirubin measurement (mass/volu me) 0.8 mg/dL 0.1-1.0 Serum or plasma alkaline phosphatase donnell surement (enzymatic activity/volume) 57 U/L 40-136 Serum or plasma aspartate aminotransfera se measurement (enzymatic activity/volume) 24 U/L 5-34 Serum or plasma alanine aminotransferase measurement (enzymatic activity/volume) 31 U/L 0-55 Serum or plasma protein measurement (mass/volume) 4.9 g/dL 6.4-8.2 Serum or plasma albumin measurement (mass/volume) 2.6 g/dL 3.2-4.5 CALCIUM CORRECTED 9.1 mg/dL 8.5-10.1 Serum or plasma phosphate measurement (m ass/volume) - 09/25/18 03:25 Serum or plasma phosphate measurement (mass/volume) 3.1 mg/dL 2.3-4.7 Magnesium - 09/25/18 03:25 Magnesium 2.1 mg/dL 1.8-2.4 Serum or plasma lithium measurement (mol es/volume) - 09/25/18 03:25 BNP PT 765.3 pg/mL <100.0 Capillary blood glucose measurement by g lucometer (mass/volume) - 09/25/18 12:09 Capillary blood glucose measurement by glucometer (mas s/volume) 188 mg/dL 70-110 Capillary blood glucose measurement by g lucometer (mass/volume) - 09/25/18 17:55 Capillary blood glucose measurement by glucometer (mas s/volume) 177 mg/dL 70-110 Capillary blood glucose measurement by g lucometer (mass/volume) - 09/26/18 00:07 Capillary blood glucose measurement by glucometer (mas s/volume) 198 mg/dL 70-110 Complete blood count (CBC) with automate d white blood cell (WBC) differential - 09/26/18 05:30 Blood leukocytes automated count (number/volume) 8.7 10*3/uL 4.3-11.0 Blood erythrocytes automated count (number/volume) 3.53 10*6/uL 4.35-5.85 Venous blood hemoglobin measurement (mass/volume) 10.9 g/dL 13.3-17.7 Blood hematocrit (volume fraction) 32 % 40-54 Automated erythrocyte mean corpuscular volume 92 [ foz_us] 80-99 Automated erythrocyte mean corpuscular h emoglobin (mass per erythrocyte) 31 pg 25-34 Automated erythrocyte mean corpuscular h emoglobin concentration measurement (mass/volume) 34 g/dL 32-36 Automated erythrocyte distribution width ratio 14. 9 % 10.0- 14.5 Automated blood platelet count (count/volume) 216 10*3/uL 130-400 Automated blood platelet mean volume measurement 9.8 [foz_us] 7.4-10.4 Automated blood neutrophils/100 leukocytes 84 % 42-75 Automated blood lymphocytes/100 leukocytes 9 % 12-44 Blood monocytes/100 leukocytes 6 % 0-12 Automated blood eosinophils/100 leukocytes 0 % 0-10 Automated blood basophils/100 leukocytes 0 % 0-10 Blood neutrophils automated count (number/volume) 7.4 10*3 1.8-7.8 Blood lymphocytes automated count (number/volume) 0.8 10*3 1.0-4.0 Blood monocytes automated count (number/volume) 0. 6 10*3 0.0-1.0 Automated eosinophil count 0.0 10*3/uL 0 .0-0.3 Automated blood basophil count (count/volume) 0.0 10*3/uL 0.0-0.1 Comprehensive metabolic panel - 09/26/18 05:30 Serum or plasma sodium measurement (moles/volume) 138 mmol/L 135-145 Serum or plasma potassium measurement (moles/volume) 4.4 mmol/L 3.6-5.0 Serum or plasma chloride measurement (moles/volume) 106 mmol/L 98-107 Carbon dioxide 23 mmol/L 21-32 Serum or plasma anion gap determination (moles/volume) 9 mmol/L 5-14 Serum or plasma urea nitrogen measurement (mass/volume ) 29 mg/dL 7-18 Serum or plasma creatinine measurement (mass/volume) 0.74 mg/dL 0.60-1.30 Serum or plasma urea nitrogen/creatinine mass ratio 39 NRG Serum or plasma creatinine measurement w ith calculation of estimated glomerular filtration rate > NRG Serum or plasma glucose measurement (mass/volume) 168 mg/dL 70-105 Serum or plasma calcium measurement (mass/volume) 7.9 mg/dL 8.5-10.1 Serum or plasma total bilirubin measurement (mass/volu me) 0.8 mg/dL 0.1-1.0 Serum or plasma alkaline phosphatase donnell surement (enzymatic activity/volume) 57 U/L 40-136 Serum or plasma aspartate aminotransfera se measurement (enzymatic activity/volume) 27 U/L 5-34 Serum or plasma alanine aminotransferase measurement (enzymatic activity/volume) 37 U/L 0-55 Serum or plasma protein measurement (mass/volume) 4.9 g/dL 6.4-8.2 Serum or plasma albumin measurement (mass/volume) 2.8 g/dL 3.2-4.5 CALCIUM CORRECTED 8.9 mg/dL 8.5-10.1 Serum or plasma phosphate measurement (m ass/volume) - 09/26/18 05:30 Serum or plasma phosphate measurement (mass/volume) 3.1 mg/dL 2.3-4.7 Magnesium - 09/26/18 05:30 Magnesium 2.2 mg/dL 1.8-2.4 Capillary blood glucose measurement by g lucometer (mass/volume) - 09/26/18 06:05 Capillary blood glucose measurement by glucometer (mas s/volume) 165 mg/dL 70-110 C DIFFICILE AG + TOXIN A/B. - 09/26/18 1 0:20 RESULTS NEGATIVE FOR ANTIGEN AND TOXIN A/B NRG Capillary blood glucose measurement by g lucometer (mass/volume) - 09/26/18 12:33 Capillary blood glucose measurement by glucometer (mas s/volume) 171 mg/dL 70-110 Capillary blood glucose measurement by g lucometer (mass/volume) - 09/26/18 17:53 Capillary blood glucose measurement by glucometer (mas s/volume) 185 mg/dL 70-110 Capillary blood glucose measurement by g lucometer (mass/volume) - 09/27/18 00:18 Capillary blood glucose measurement by glucometer (mas s/volume) 204 mg/dL 70-110 Complete blood count (CBC) with automate d white blood cell (WBC) differential - 09/27/18 02:50 Blood leukocytes automated count (number/volume) 10.2 10*3/uL 4.3-11.0 Blood erythrocytes automated count (number/volume) 3.83 10*6/uL 4.35-5.85 Venous blood hemoglobin measurement (mass/volume) 11.6 g/dL 13.3-17.7 Blood hematocrit (volume fraction) 35 % 40-54 Automated erythrocyte mean corpuscular volume 91 [ foz_us] 80-99 Automated erythrocyte mean corpuscular h emoglobin (mass per erythrocyte) 30 pg 25-34 Automated erythrocyte mean corpuscular h emoglobin concentration measurement (mass/volume) 33 g/dL 32-36 Automated erythrocyte distribution width ratio 14. 6 % 10.0- 14.5 Automated blood platelet count (count/volume) 224 10*3/uL 130-400 Automated blood platelet mean volume measurement 10.2 [foz_us] 7.4-10.4 Automated blood neutrophils/100 leukocytes 85 % 42-75 Automated blood lymphocytes/100 leukocytes 8 % 12-44 Blood monocytes/100 leukocytes 6 % 0-12 Automated blood eosinophils/100 leukocytes 0 % 0-10 Automated blood basophils/100 leukocytes 0 % 0-10 Blood neutrophils automated count (number/volume) 8.7 10*3 1.8-7.8 Blood lymphocytes automated count (number/volume) 0.8 10*3 1.0-4.0 Blood monocytes automated count (number/volume) 0. 6 10*3 0.0-1.0 Automated eosinophil count 0.0 10*3/uL 0 .0-0.3 Automated blood basophil count (count/volume) 0.0 10*3/uL 0.0-0.1 Serum or plasma phosphate measurement (m ass/volume) - 09/27/18 02:50 Serum or plasma phosphate measurement (mass/volume) 3.5 mg/dL 2.3-4.7 Magnesium - 09/27/18 02:50 Magnesium 2.2 mg/dL 1.8-2.4 Comprehensive metabolic panel - 09/27/18 02:50 Serum or plasma sodium measurement (moles/volume) 136 mmol/L 135-145 Serum or plasma potassium measurement (moles/volume) 4.3 mmol/L 3.6-5.0 Serum or plasma chloride measurement (moles/volume) 104 mmol/L 98-107 Carbon dioxide 23 mmol/L 21-32 Serum or plasma anion gap determination (moles/volume) 9 mmol/L 5-14 Serum or plasma urea nitrogen measurement (mass/volume ) 35 mg/dL 7-18 Serum or plasma creatinine measurement (mass/volume) 0.78 mg/dL 0.60-1.30 Serum or plasma urea nitrogen/creatinine mass ratio 45 NRG Serum or plasma creatinine measurement w ith calculation of estimated glomerular filtration rate > NRG Serum or plasma glucose measurement (mass/volume) 179 mg/dL 70-105 Serum or plasma calcium measurement (mass/volume) 8.1 mg/dL 8.5-10.1 Serum or plasma total bilirubin measurement (mass/volu me) 0.8 mg/dL 0.1-1.0 Serum or plasma alkaline phosphatase donnell surement (enzymatic activity/volume) 59 U/L 40-136 Serum or plasma aspartate aminotransfera se measurement (enzymatic activity/volume) 29 U/L 5-34 Serum or plasma alanine aminotransferase measurement (enzymatic activity/volume) 44 U/L 0-55 Serum or plasma protein measurement (mass/volume) 5.2 g/dL 6.4-8.2 Serum or plasma albumin measurement (mass/volume) 2.9 g/dL 3.2-4.5 CALCIUM CORRECTED 9.0 mg/dL 8.5-10.1 Capillary blood glucose measurement by g lucometer (mass/volume) - 09/27/18 05:32 Capillary blood glucose measurement by glucometer (mas s/volume) 170 mg/dL 70-110 Capillary blood glucose measurement by g lucometer (mass/volume) - 09/27/18 12:41 Capillary blood glucose measurement by glucometer (mas s/volume) 203 mg/dL 70-110 Capillary blood glucose measurement by g lucometer (mass/volume) - 09/27/18 18:20 Capillary blood glucose measurement by glucometer (mas s/volume) 131 mg/dL 70-110 Capillary blood glucose measurement by g lucometer (mass/volume) - 09/27/18 20:33 Capillary blood glucose measurement by glucometer (mas s/volume) 157 mg/dL 70-110 Capillary blood glucose measurement by g lucometer (mass/volume) - 09/28/18 00:52 Capillary blood glucose measurement by glucometer (mas s/volume) 212 mg/dL 70-110 Capillary blood glucose measurement by g lucometer (mass/volume) - 09/28/18 05:20 Capillary blood glucose measurement by glucometer (mas s/volume) 135 mg/dL 70-110 Complete blood count (CBC) with automate d white blood cell (WBC) differential - 09/28/18 05:51 Blood leukocytes automated count (number/volume) 12.6 10*3/uL 4.3-11.0 Blood erythrocytes automated count (number/volume) 3.96 10*6/uL 4.35-5.85 Venous blood hemoglobin measurement (mass/volume) 12.1 g/dL 13.3-17.7 Blood hematocrit (volume fraction) 36 % 40-54 Automated erythrocyte mean corpuscular volume 91 [ foz_us] 80-99 Automated erythrocyte mean corpuscular h emoglobin (mass per erythrocyte) 31 pg 25-34 Automated erythrocyte mean corpuscular h emoglobin concentration measurement (mass/volume) 34 g/dL 32-36 Automated erythrocyte distribution width ratio 14. 5 % 10.0- 14.5 Automated blood platelet count (count/volume) 216 10*3/uL 130-400 Automated blood platelet mean volume measurement 9.4 [foz_us] 7.4-10.4 Automated blood neutrophils/100 leukocytes 80 % 42-75 Automated blood lymphocytes/100 leukocytes 8 % 12-44 Blood monocytes/100 leukocytes 11 % 0-12 Automated blood eosinophils/100 leukocytes 0 % 0-10 Automated blood basophils/100 leukocytes 1 % 0-10 Blood neutrophils automated count (number/volume) 10.1 10*3 1.8-7.8 Blood lymphocytes automated count (number/volume) 1.1 10*3 1.0-4.0 Blood monocytes automated count (number/volume) 1. 3 10*3 0.0-1.0 Automated eosinophil count 0.0 10*3/uL 0 .0-0.3 Automated blood basophil count (count/volume) 0.1 10*3/uL 0.0-0.1 Comprehensive metabolic panel - 09/28/18 05:51 Serum or plasma sodium measurement (moles/volume) 138 mmol/L 135-145 Serum or plasma potassium measurement (moles/volume) 4.2 mmol/L 3.6-5.0 Serum or plasma chloride measurement (moles/volume) 102 mmol/L 98-107 Carbon dioxide 27 mmol/L 21-32 Serum or plasma anion gap determination (moles/volume) 9 mmol/L 5-14 Serum or plasma urea nitrogen measurement (mass/volume ) 33 mg/dL 7-18 Serum or plasma creatinine measurement (mass/volume) 0.77 mg/dL 0.60-1.30 Serum or plasma urea nitrogen/creatinine mass ratio 43 NRG Serum or plasma creatinine measurement w ith calculation of estimated glomerular filtration rate > NRG Serum or plasma glucose measurement (mass/volume) 132 mg/dL 70-105 Serum or plasma calcium measurement (mass/volume) 8.2 mg/dL 8.5-10.1 Serum or plasma total bilirubin measurement (mass/volu me) 0.7 mg/dL 0.1-1.0 Serum or plasma alkaline phosphatase donnell surement (enzymatic activity/volume) 66 U/L 40-136 Serum or plasma aspartate aminotransfera se measurement (enzymatic activity/volume) 33 U/L 5-34 Serum or plasma alanine aminotransferase measurement (enzymatic activity/volume) 51 U/L 0-55 Serum or plasma protein measurement (mass/volume) 5.3 g/dL 6.4-8.2 Serum or plasma albumin measurement (mass/volume) 3.0 g/dL 3.2-4.5 CALCIUM CORRECTED 9.0 mg/dL 8.5-10.1 Capillary blood glucose measurement by g lucometer (mass/volume) - 09/28/18 12:10 Capillary blood glucose measurement by glucometer (mas s/volume) 190 mg/dL 70-110 Capillary blood glucose measurement by g lucometer (mass/volume) - 09/28/18 17:38 Capillary blood glucose measurement by glucometer (mas s/volume) 201 mg/dL 70-110 Capillary blood glucose measurement by g lucometer (mass/volume) - 09/29/18 00:05 Capillary blood glucose measurement by glucometer (mas s/volume) 189 mg/dL 70-110 Capillary blood glucose measurement by g lucometer (mass/volume) - 09/29/18 05:20 Capillary blood glucose measurement by glucometer (mas s/volume) 171 mg/dL 70-110 Capillary blood glucose measurement by g lucometer (mass/volume) - 09/29/18 11:32 Capillary blood glucose measurement by glucometer (mas s/volume) 275 mg/dL 70-110 Capillary blood glucose measurement by g lucometer (mass/volume) - 09/29/18 17:47 Capillary blood glucose measurement by glucometer (mas s/volume) 203 mg/dL 70-110 Capillary blood glucose measurement by g lucometer (mass/volume) - 09/30/18 00:03 Capillary blood glucose measurement by glucometer (mas s/volume) 166 mg/dL 70-110 Capillary blood glucose measurement by g lucometer (mass/volume) - 09/30/18 05:11 Capillary blood glucose measurement by glucometer (mas s/volume) 135 mg/dL 70-110 Complete blood count (CBC) with automate d white blood cell (WBC) differential - 09/30/18 06:22 Blood leukocytes automated count (number/volume) 18.8 10*3/uL 4.3-11.0 Blood erythrocytes automated count (number/volume) 3.92 10*6/uL 4.35-5.85 Venous blood hemoglobin measurement (mass/volume) 12.1 g/dL 13.3-17.7 Blood hematocrit (volume fraction) 36 % 40-54 Automated erythrocyte mean corpuscular volume 91 [ foz_us] 80-99 Automated erythrocyte mean corpuscular h emoglobin (mass per erythrocyte) 31 pg 25-34 Automated erythrocyte mean corpuscular h emoglobin concentration measurement (mass/volume) 34 g/dL 32-36 Automated erythrocyte distribution width ratio 14. 9 % 10.0- 14.5 Automated blood platelet count (count/volume) 212 10*3/uL 130-400 Automated blood platelet mean volume measurement 10.2 [foz_us] 7.4-10.4 Automated blood neutrophils/100 leukocytes 86 % 42-75 Automated blood lymphocytes/100 leukocytes 7 % 12-44 Blood monocytes/100 leukocytes 7 % 0-12 Automated blood eosinophils/100 leukocytes 0 % 0-10 Automated blood basophils/100 leukocytes 1 % 0-10 Blood neutrophils automated count (number/volume) 16.1 10*3 1.8-7.8 Blood lymphocytes automated count (number/volume) 1.3 10*3 1.0-4.0 Blood monocytes automated count (number/volume) 1. 3 10*3 0.0-1.0 Automated eosinophil count 0.0 10*3/uL 0 .0-0.3 Automated blood basophil count (count/volume) 0.1 10*3/uL 0.0-0.1 Comprehensive metabolic panel - 09/30/18 06:22 Serum or plasma sodium measurement (moles/volume) 139 mmol/L 135-145 Serum or plasma potassium measurement (moles/volume) 4.2 mmol/L 3.6-5.0 Serum or plasma chloride measurement (moles/volume) 103 mmol/L 98-107 Carbon dioxide 26 mmol/L 21-32 Serum or plasma anion gap determination (moles/volume) 10 mmol/L 5-14 Serum or plasma urea nitrogen measurement (mass/volume ) 22 mg/dL 7-18 Serum or plasma creatinine measurement (mass/volume) 0.74 mg/dL 0.60-1.30 Serum or plasma urea nitrogen/creatinine mass ratio 30 NRG Serum or plasma creatinine measurement w ith calculation of estimated glomerular filtration rate > NRG Serum or plasma glucose measurement (mass/volume) 159 mg/dL 70-105 Serum or plasma calcium measurement (mass/volume) 8.7 mg/dL 8.5-10.1 Serum or plasma total bilirubin measurement (mass/volu me) 0.9 mg/dL 0.1-1.0 Serum or plasma alkaline phosphatase donnell surement (enzymatic activity/volume) 74 U/L 40-136 Serum or plasma aspartate aminotransfera se measurement (enzymatic activity/volume) 30 U/L 5-34 Serum or plasma alanine aminotransferase measurement (enzymatic activity/volume) 57 U/L 0-55 Serum or plasma protein measurement (mass/volume) 5.6 g/dL 6.4-8.2 Serum or plasma albumin measurement (mass/volume) 3.3 g/dL 3.2-4.5 CALCIUM CORRECTED 9.3 mg/dL 8.5-10.1 Manual absolute plasma cell count - 04/20 06:22 Blood monocytes/100 leukocytes 3 % NRG Manual blood segmented neutrophils/100 leukocytes 70 % NRG Blood band neutrophils/100 leukocytes 9 % NRG Manual blood lymphocytes/100 leukocytes 10 % NRG Blood polychromasia detection by light microscopy SLIGHT NRG Manual blood metamyelocytes/100 leukocytes 8 % NRG Blood spherocytes detection by light microscopy SL IGHT NRG Capillary blood glucose measurement by g lucometer (mass/volume) - 09/30/18 11:39 Capillary blood glucose measurement by glucometer (mas s/volume) 121 mg/dL 70-110 Capillary blood glucose measurement by g lucometer (mass/volume) - 09/30/18 18:37 Capillary blood glucose measurement by glucometer (mas s/volume) 241 mg/dL 70-110 Capillary blood glucose measurement by g lucometer (mass/volume) - 10/01/18 00:05 Capillary blood glucose measurement by glucometer (mas s/volume) 205 mg/dL 70-110 Complete blood count (CBC) with automate d white blood cell (WBC) differential - 10/01/18 06:00 Blood leukocytes automated count (number/volume) 17.8 10*3/uL 4.3-11.0 Blood erythrocytes automated count (number/volume) 4.08 10*6/uL 4.35-5.85 Venous blood hemoglobin measurement (mass/volume) 12.6 g/dL 13.3-17.7 Blood hematocrit (volume fraction) 37 % 40-54 Automated erythrocyte mean corpuscular volume 90 [ foz_us] 80-99 Automated erythrocyte mean corpuscular h emoglobin (mass per erythrocyte) 31 pg 25-34 Automated erythrocyte mean corpuscular h emoglobin concentration measurement (mass/volume) 34 g/dL 32-36 Automated erythrocyte distribution width ratio 15. 2 % 10.0- 14.5 Automated blood platelet count (count/volume) 234 10*3/uL 130-400 Automated blood platelet mean volume measurement 9.8 [foz_us] 7.4-10.4 Automated blood neutrophils/100 leukocytes 80 % 42-75 Automated blood lymphocytes/100 leukocytes 8 % 12-44 Blood monocytes/100 leukocytes 11 % 0-12 Automated blood eosinophils/100 leukocytes 0 % 0-10 Automated blood basophils/100 leukocytes 0 % 0-10 Blood neutrophils automated count (number/volume) 14.3 10*3 1.8-7.8 Blood lymphocytes automated count (number/volume) 1.5 10*3 1.0-4.0 Blood monocytes automated count (number/volume) 1. 9 10*3 0.0-1.0 Automated eosinophil count 0.0 10*3/uL 0 .0-0.3 Automated blood basophil count (count/volume) 0.1 10*3/uL 0.0-0.1 Capillary blood glucose measurement by g lucometer (mass/volume) - 10/01/18 06:00 Capillary blood glucose measurement by glucometer (mas s/volume) 109 mg/dL 70-110 Comprehensive metabolic panel - 10/01/18 06:00 Serum or plasma sodium measurement (moles/volume) 138 mmol/L 135-145 Serum or plasma potassium measurement (moles/volume) 4.0 mmol/L 3.6-5.0 Serum or plasma chloride measurement (moles/volume) 104 mmol/L 98-107 Carbon dioxide 26 mmol/L 21-32 Serum or plasma anion gap determination (moles/volume) 8 mmol/L 5-14 Serum or plasma urea nitrogen measurement (mass/volume ) 21 mg/dL 7-18 Serum or plasma creatinine measurement (mass/volume) 0.76 mg/dL 0.60-1.30 Serum or plasma urea nitrogen/creatinine mass ratio 28 NRG Serum or plasma creatinine measurement w ith calculation of estimated glomerular filtration rate > NRG Serum or plasma glucose measurement (mass/volume) 110 mg/dL 70-105 Serum or plasma calcium measurement (mass/volume) 8.6 mg/dL 8.5-10.1 Serum or plasma total bilirubin measurement (mass/volu me) 0.7 mg/dL 0.1-1.0 Serum or plasma alkaline phosphatase donnell surement (enzymatic activity/volume) 76 U/L 40-136 Serum or plasma aspartate aminotransfera se measurement (enzymatic activity/volume) 34 U/L 5-34 Serum or plasma alanine aminotransferase measurement (enzymatic activity/volume) 62 U/L 0-55 Serum or plasma protein measurement (mass/volume) 5.7 g/dL 6.4-8.2 Serum or plasma albumin measurement (mass/volume) 3.3 g/dL 3.2-4.5 CALCIUM CORRECTED 9.2 mg/dL 8.5-10.1 Capillary blood glucose measurement by g lucometer (mass/volume) - 10/01/18 11:58 Capillary blood glucose measurement by glucometer (mas s/volume) 151 mg/dL 70-110 Capillary blood glucose measurement by g lucometer (mass/volume) - 10/01/18 18:18 Capillary blood glucose measurement by glucometer (mas s/volume) 263 mg/dL 70-110 Capillary blood glucose measurement by g lucometer (mass/volume) - 10/02/18 00:05 Capillary blood glucose measurement by glucometer (mas s/volume) 166 mg/dL 70-110 Capillary blood glucose measurement by g lucometer (mass/volume) - 10/02/18 05:25 Capillary blood glucose measurement by glucometer (mas s/volume) 107 mg/dL 70-110 Capillary blood glucose measurement by g lucometer (mass/volume) - 10/02/18 11:27 Capillary blood glucose measurement by glucometer (mas s/volume) 192 mg/dL 70-110 Capillary blood glucose measurement by g lucometer (mass/volume) - 10/02/18 17:29 Capillary blood glucose measurement by glucometer (mas s/volume) 198 mg/dL 70-110 Capillary blood glucose measurement by g lucometer (mass/volume) - 10/02/18 23:30 Capillary blood glucose measurement by glucometer (mas s/volume) 161 mg/dL 70-110 Complete blood count (CBC) with automate d white blood cell (WBC) differential - 10/03/18 04:50 Blood leukocytes automated count (number/volume) 13.0 10*3/uL 4.3-11.0 Blood erythrocytes automated count (number/volume) 3.85 10*6/uL 4.35-5.85 Venous blood hemoglobin measurement (mass/volume) 11.8 g/dL 13.3-17.7 Blood hematocrit (volume fraction) 35 % 40-54 Automated erythrocyte mean corpuscular volume 92 [ foz_us] 80-99 Automated erythrocyte mean corpuscular h emoglobin (mass per erythrocyte) 31 pg 25-34 Automated erythrocyte mean corpuscular h emoglobin concentration measurement (mass/volume) 33 g/dL 32-36 Automated erythrocyte distribution width ratio 15. 4 % 10.0- 14.5 Automated blood platelet count (count/volume) 165 10*3/uL 130-400 Automated blood platelet mean volume measurement 9.6 [foz_us] 7.4-10.4 Automated blood neutrophils/100 leukocytes 79 % 42-75 Automated blood lymphocytes/100 leukocytes 11 % 12-44 Blood monocytes/100 leukocytes 10 % 0-12 Automated blood eosinophils/100 leukocytes 0 % 0-10 Automated blood basophils/100 leukocytes 0 % 0-10 Blood neutrophils automated count (number/volume) 10.3 10*3 1.8-7.8 Blood lymphocytes automated count (number/volume) 1.4 10*3 1.0-4.0 Blood monocytes automated count (number/volume) 1. 2 10*3 0.0-1.0 Automated eosinophil count 0.0 10*3/uL 0 .0-0.3 Automated blood basophil count (count/volume) 0.0 10*3/uL 0.0-0.1 Comprehensive metabolic panel - 10/03/18 04:50 Serum or plasma sodium measurement (moles/volume) 138 mmol/L 135-145 Serum or plasma potassium measurement (moles/volume) 3.6 mmol/L 3.6-5.0 Serum or plasma chloride measurement (moles/volume) 103 mmol/L 98-107 Carbon dioxide 28 mmol/L 21-32 Serum or plasma anion gap determination (moles/volume) 7 mmol/L 5-14 Serum or plasma urea nitrogen measurement (mass/volume ) 19 mg/dL 7-18 Serum or plasma creatinine measurement (mass/volume) 0.74 mg/dL 0.60-1.30 Serum or plasma urea nitrogen/creatinine mass ratio 26 NRG Serum or plasma creatinine measurement w ith calculation of estimated glomerular filtration rate > NRG Serum or plasma glucose measurement (mass/volume) 117 mg/dL 70-105 Serum or plasma calcium measurement (mass/volume) 8.3 mg/dL 8.5-10.1 Serum or plasma total bilirubin measurement (mass/volu me) 0.6 mg/dL 0.1-1.0 Serum or plasma alkaline phosphatase donnell surement (enzymatic activity/volume) 80 U/L 40-136 Serum or plasma aspartate aminotransfera se measurement (enzymatic activity/volume) 27 U/L 5-34 Serum or plasma alanine aminotransferase measurement (enzymatic activity/volume) 54 U/L 0-55 Serum or plasma protein measurement (mass/volume) 4.8 g/dL 6.4-8.2 Serum or plasma albumin measurement (mass/volume) 2.9 g/dL 3.2-4.5 CALCIUM CORRECTED 9.2 mg/dL 8.5-10.1 Capillary blood glucose measurement by g lucometer (mass/volume) - 10/03/18 04:51 Capillary blood glucose measurement by glucometer (mas s/volume) 115 mg/dL 70-110 Capillary blood glucose measurement by g lucometer (mass/volume) - 10/03/18 11:59 Capillary blood glucose measurement by glucometer (mas s/volume) 150 mg/dL 70-110 Capillary blood glucose measurement by g lucometer (mass/volume) - 10/03/18 18:01 Capillary blood glucose measurement by glucometer (mas s/volume) 172 mg/dL 70-110 Capillary blood glucose measurement by g lucometer (mass/volume) - 10/04/18 00:00 Capillary blood glucose measurement by glucometer (mas s/volume) 193 mg/dL 70-110 Capillary blood glucose measurement by g lucometer (mass/volume) - 10/04/18 05:51 Capillary blood glucose measurement by glucometer (mas s/volume) 165 mg/dL 70-110 Capillary blood glucose measurement by g lucometer (mass/volume) - 10/04/18 11:57 Capillary blood glucose measurement by glucometer (mas s/volume) 187 mg/dL 70-110 Capillary blood glucose measurement by g lucometer (mass/volume) - 10/04/18 18:41 Capillary blood glucose measurement by glucometer (mas s/volume) 249 mg/dL 70-110 Capillary blood glucose measurement by g lucometer (mass/volume) - 10/04/18 23:51 Capillary blood glucose measurement by glucometer (mas s/volume) 136 mg/dL 70-110 Complete blood count (CBC) with automate d white blood cell (WBC) differential - 10/05/18 05:40 Blood leukocytes automated count (number/volume) 12.9 10*3/uL 4.3-11.0 Blood erythrocytes automated count (number/volume) 3.55 10*6/uL 4.35-5.85 Venous blood hemoglobin measurement (mass/volume) 10.9 g/dL 13.3-17.7 Blood hematocrit (volume fraction) 33 % 40-54 Automated erythrocyte mean corpuscular volume 92 [ foz_us] 80-99 Automated erythrocyte mean corpuscular h emoglobin (mass per erythrocyte) 31 pg 25-34 Automated erythrocyte mean corpuscular h emoglobin concentration measurement (mass/volume) 33 g/dL 32-36 Automated erythrocyte distribution width ratio 15. 8 % 10.0- 14.5 Automated blood platelet count (count/volume) 129 10*3/uL 130-400 Automated blood platelet mean volume measurement 9.8 [foz_us] 7.4-10.4 Automated blood neutrophils/100 leukocytes 81 % 42-75 Automated blood lymphocytes/100 leukocytes 12 % 12-44 Blood monocytes/100 leukocytes 7 % 0-12 Automated blood eosinophils/100 leukocytes 0 % 0-10 Automated blood basophils/100 leukocytes 0 % 0-10 Blood neutrophils automated count (number/volume) 10.5 10*3 1.8-7.8 Blood lymphocytes automated count (number/volume) 1.5 10*3 1.0-4.0 Blood monocytes automated count (number/volume) 0. 9 10*3 0.0-1.0 Automated eosinophil count 0.1 10*3/uL 0 .0-0.3 Automated blood basophil count (count/volume) 0.0 10*3/uL 0.0-0.1 Comprehensive metabolic panel - 10/05/18 05:40 Serum or plasma sodium measurement (moles/volume) 135 mmol/L 135-145 Serum or plasma potassium measurement (moles/volume) 3.7 mmol/L 3.6-5.0 Serum or plasma chloride measurement (moles/volume) 102 mmol/L 98-107 Carbon dioxide 25 mmol/L 21-32 Serum or plasma anion gap determination (moles/volume) 8 mmol/L 5-14 Serum or plasma urea nitrogen measurement (mass/volume ) 14 mg/dL 7-18 Serum or plasma creatinine measurement (mass/volume) 0.64 mg/dL 0.60-1.30 Serum or plasma urea nitrogen/creatinine mass ratio 22 NRG Serum or plasma creatinine measurement w ith calculation of estimated glomerular filtration rate > NRG Serum or plasma glucose measurement (mass/volume) 143 mg/dL 70-105 Serum or plasma calcium measurement (mass/volume) 8.1 mg/dL 8.5-10.1 Serum or plasma total bilirubin measurement (mass/volu me) 0.8 mg/dL 0.1-1.0 Serum or plasma alkaline phosphatase donnell surement (enzymatic activity/volume) 74 U/L 40-136 Serum or plasma aspartate aminotransfera se measurement (enzymatic activity/volume) 19 U/L 5-34 Serum or plasma alanine aminotransferase measurement (enzymatic activity/volume) 42 U/L 0-55 Serum or plasma protein measurement (mass/volume) 4.7 g/dL 6.4-8.2 Serum or plasma albumin measurement (mass/volume) 2.6 g/dL 3.2-4.5 CALCIUM CORRECTED 9.2 mg/dL 8.5-10.1 Capillary blood glucose measurement by g lucometer (mass/volume) - 10/05/18 11:36 Capillary blood glucose measurement by glucometer (mas s/volume) 196 mg/dL 70-110 Capillary blood glucose measurement by g lucometer (mass/volume) - 10/05/18 16:02 Capillary blood glucose measurement by glucometer (mas s/volume) 201 mg/dL 70-110 Capillary blood glucose measurement by g lucometer (mass/volume) - 10/05/18 20:14 Capillary blood glucose measurement by glucometer (mas s/volume) 240 mg/dL 70-110 Capillary blood glucose measurement by g lucometer (mass/volume) - 10/06/18 05:21 Capillary blood glucose measurement by glucometer (mas s/volume) 134 mg/dL 70-110 Capillary blood glucose measurement by g lucometer (mass/volume) - 10/06/18 11:05 Capillary blood glucose measurement by glucometer (mas s/volume) 148 mg/dL 70-110 Capillary blood glucose measurement by g lucometer (mass/volume) - 10/06/18 15:22 Capillary blood glucose measurement by glucometer (mas s/volume) 181 mg/dL 70-110 Complete blood count (CBC) with automate d white blood cell (WBC) differential - 10/06/18 17:42 Blood leukocytes automated count (number/volume) 11.7 10*3/uL 4.3-11.0 Blood erythrocytes automated count (number/volume) 3.99 10*6/uL 4.35-5.85 Venous blood hemoglobin measurement (mass/volume) 12.3 g/dL 13.3-17.7 Blood hematocrit (volume fraction) 36 % 40-54 Automated erythrocyte mean corpuscular volume 91 [ foz_us] 80-99 Automated erythrocyte mean corpuscular h emoglobin (mass per erythrocyte) 31 pg 25-34 Automated erythrocyte mean corpuscular h emoglobin concentration measurement (mass/volume) 34 g/dL 32-36 Automated erythrocyte distribution width ratio 15. 9 % 10.0- 14.5 Automated blood platelet count (count/volume) 118 10*3/uL 130-400 Automated blood platelet mean volume measurement 9.9 [foz_us] 7.4-10.4 Automated blood neutrophils/100 leukocytes 81 % 42-75 Automated blood lymphocytes/100 leukocytes 11 % 12-44 Blood monocytes/100 leukocytes 7 % 0-12 Automated blood eosinophils/100 leukocytes 1 % 0-10 Automated blood basophils/100 leukocytes 0 % 0-10 Blood neutrophils automated count (number/volume) 9.5 10*3 1.8-7.8 Blood lymphocytes automated count (number/volume) 1.3 10*3 1.0-4.0 Blood monocytes automated count (number/volume) 0. 9 10*3 0.0-1.0 Automated eosinophil count 0.1 10*3/uL 0 .0-0.3 Automated blood basophil count (count/volume) 0.0 10*3/uL 0.0-0.1 Blood lactic acid measurement (moles/vol ume) - 10/06/18 17:42 Blood lactic acid measurement (moles/volume) 1.44 mmol/L 0.50-2.00 Comprehensive metabolic panel - 10/06/18 17:42 Serum or plasma sodium measurement (moles/volume) 135 mmol/L 135-145 Serum or plasma potassium measurement (moles/volume) 3.6 mmol/L 3.6-5.0 Serum or plasma chloride measurement (moles/volume) 99 mmol/L 98-107 Carbon dioxide 25 mmol/L 21-32 Serum or plasma anion gap determination (moles/volume) 11 mmol/L 5-14 Serum or plasma urea nitrogen measurement (mass/volume ) 10 mg/dL 7-18 Serum or plasma creatinine measurement (mass/volume) 0.72 mg/dL 0.60-1.30 Serum or plasma urea nitrogen/creatinine mass ratio 14 NRG Serum or plasma creatinine measurement w ith calculation of estimated glomerular filtration rate > NRG Serum or plasma glucose measurement (mass/volume) 143 mg/dL 70-105 Serum or plasma calcium measurement (mass/volume) 8.7 mg/dL 8.5-10.1 Serum or plasma total bilirubin measurement (mass/volu me) 0.9 mg/dL 0.1-1.0 Serum or plasma alkaline phosphatase donnell surement (enzymatic activity/volume) 92 U/L 40-136 Serum or plasma aspartate aminotransfera se measurement (enzymatic activity/volume) 28 U/L 5-34 Serum or plasma alanine aminotransferase measurement (enzymatic activity/volume) 51 U/L 0-55 Serum or plasma protein measurement (mass/volume) 6.0 g/dL 6.4-8.2 Serum or plasma albumin measurement (mass/volume) 3.2 g/dL 3.2-4.5 CALCIUM CORRECTED 9.3 mg/dL 8.5-10.1 Serum or plasma lithium measurement (mol es/volume) - 10/06/18 17:42 BNP PT 342.8 pg/mL <100.0 Complete urinalysis with reflex to cultu re - 10/06/18 20:25 Urine color determination YELLOW NRG Urine clarity determination CLEAR NR G Urine pH measurement by test strip 7 5-9 Specific gravity of urine by test strip 1.010 1.016-1.022 Urine protein assay by test strip, semi-quantitative 2+ NEGATIVE Urine glucose detection by automated test strip 1+ NEGATIVE Erythrocytes detection in urine sediment by light micr oscopy 2+ NEGATIVE Urine ketones detection by automated test strip NE GATIVE NEGATIVE Urine nitrite detection by test strip NEGATIVE NEGATIVE Urine total bilirubin detection by test strip NEGA TIVE NEGATIVE Urine urobilinogen measurement by automated test strip (mass/volume) 1 mg/dL NORMAL Urine leukocyte esterase detection by dipstick 1+ NEGATIVE Automated urine sediment erythrocyte cou nt by microscopy (number/high power field) [HPF] NRG Automated urine sediment leukocyte count by microscopy (number/high power field) NONE NRG Bacteria detection in urine sediment by light microsco py NEGATIVE NRG Squamous epithelial cells detection in u rine sediment by light microscopy RARE NRG Crystals detection in urine sediment by light microsco py NONE NRG Casts detection in urine sediment by light microscopy NONE NRG Mucus detection in urine sediment by light microscopy NEGATIVE NRG Complete urinalysis with reflex to culture NO NRG Capillary blood glucose measurement by g lucometer (mass/volume) - 10/06/18 20:42 Capillary blood glucose measurement by glucometer (mas s/volume) 228 mg/dL 70-110 Capillary blood glucose measurement by g lucometer (mass/volume) - 10/07/18 04:04 Capillary blood glucose measurement by glucometer (mas s/volume) 138 mg/dL 70-110 Complete blood count (CBC) with automate d white blood cell (WBC) differential - 10/07/18 05:50 Blood leukocytes automated count (number/volume) 9.3 10*3/uL 4.3-11.0 Blood erythrocytes automated count (number/volume) 3.49 10*6/uL 4.35-5.85 Venous blood hemoglobin measurement (mass/volume) 10.6 g/dL 13.3-17.7 Blood hematocrit (volume fraction) 32 % 40-54 Automated erythrocyte mean corpuscular volume 91 [ foz_us] 80-99 Automated erythrocyte mean corpuscular h emoglobin (mass per erythrocyte) 30 pg 25-34 Automated erythrocyte mean corpuscular h emoglobin concentration measurement (mass/volume) 33 g/dL 32-36 Automated erythrocyte distribution width ratio 15. 8 % 10.0- 14.5 Automated blood platelet count (count/volume) 113 10*3/uL 130-400 Automated blood platelet mean volume measurement 9.8 [foz_us] 7.4-10.4 Automated blood neutrophils/100 leukocytes 78 % 42-75 Automated blood lymphocytes/100 leukocytes 14 % 12-44 Blood monocytes/100 leukocytes 7 % 0-12 Automated blood eosinophils/100 leukocytes 1 % 0-10 Automated blood basophils/100 leukocytes 0 % 0-10 Blood neutrophils automated count (number/volume) 7.3 10*3 1.8-7.8 Blood lymphocytes automated count (number/volume) 1.3 10*3 1.0-4.0 Blood monocytes automated count (number/volume) 0. 7 10*3 0.0-1.0 Automated eosinophil count 0.1 10*3/uL 0 .0-0.3 Automated blood basophil count (count/volume) 0.0 10*3/uL 0.0-0.1 Comprehensive metabolic panel - 10/07/18 05:50 Serum or plasma sodium measurement (moles/volume) 133 mmol/L 135-145 Serum or plasma potassium measurement (moles/volume) 3.4 mmol/L 3.6-5.0 Serum or plasma chloride measurement (moles/volume) 99 mmol/L 98-107 Carbon dioxide 26 mmol/L 21-32 Serum or plasma anion gap determination (moles/volume) 8 mmol/L 5-14 Serum or plasma urea nitrogen measurement (mass/volume ) 12 mg/dL 7-18 Serum or plasma creatinine measurement (mass/volume) 0.70 mg/dL 0.60-1.30 Serum or plasma urea nitrogen/creatinine mass ratio 17 NRG Serum or plasma creatinine measurement w ith calculation of estimated glomerular filtration rate > NRG Serum or plasma glucose measurement (mass/volume) 146 mg/dL 70-105 Serum or plasma calcium measurement (mass/volume) 8.2 mg/dL 8.5-10.1 Serum or plasma total bilirubin measurement (mass/volu me) 0.9 mg/dL 0.1-1.0 Serum or plasma alkaline phosphatase donnell surement (enzymatic activity/volume) 80 U/L 40-136 Serum or plasma aspartate aminotransfera se measurement (enzymatic activity/volume) 20 U/L 5-34 Serum or plasma alanine aminotransferase measurement (enzymatic activity/volume) 41 U/L 0-55 Serum or plasma protein measurement (mass/volume) 5.3 g/dL 6.4-8.2 Serum or plasma albumin measurement (mass/volume) 2.7 g/dL 3.2-4.5 CALCIUM CORRECTED 9.2 mg/dL 8.5-10.1 Serum or plasma phosphate measurement (m ass/volume) - 10/07/18 05:50 Serum or plasma phosphate measurement (mass/volume) 2.4 mg/dL 2.3-4.7 Magnesium - 10/07/18 05:50 Magnesium 1.3 mg/dL 1.8-2.4 Capillary blood glucose measurement by g lucometer (mass/volume) - 10/07/18 11:45 Capillary blood glucose measurement by glucometer (mas s/volume) 160 mg/dL 70-110 Capillary blood glucose measurement by g lucometer (mass/volume) - 10/07/18 15:29 Capillary blood glucose measurement by glucometer (mas s/volume) 174 mg/dL 70-110 Complete urinalysis with reflex to cultu re - 10/07/18 17:05 Urine color determination YELLOW NRG Urine clarity determination CLEAR NR G Urine pH measurement by test strip 6 5-9 Specific gravity of urine by test strip 1.020 1.016-1.022 Urine protein assay by test strip, semi-quantitative 2+ NEGATIVE Urine glucose detection by automated test strip 1+ NEGATIVE Erythrocytes detection in urine sediment by light micr oscopy 1+ NEGATIVE Urine ketones detection by automated test strip NE GATIVE NEGATIVE Urine nitrite detection by test strip NEGATIVE NEGATIVE Urine total bilirubin detection by test strip NEGA TIVE NEGATIVE Urine urobilinogen measurement by automated test strip (mass/volume) 4 mg/dL NORMAL Urine leukocyte esterase detection by dipstick NEG ATIVE NEGATIVE Automated urine sediment erythrocyte cou nt by microscopy (number/high power field) NONE NRG Automated urine sediment leukocyte count by microscopy (number/high power field) RARE NRG Bacteria detection in urine sediment by light microsco py NEGATIVE NRG Squamous epithelial cells detection in u rine sediment by light microscopy NONE NRG Crystals detection in urine sediment by light microsco py NONE NRG Casts detection in urine sediment by light microscopy NONE NRG Mucus detection in urine sediment by light microscopy NEGATIVE NRG Complete urinalysis with reflex to culture NO NRG Bacterial blood culture - 10/07/18 17:29 Bacterial blood culture NG NRG Bacterial blood culture - 10/07/18 17:46 Bacterial blood culture NG NRG Bacterial blood culture - 10/07/18 17:55 Bacterial blood culture NG NRG Sputum Gram stain - 10/07/18 18:28 Sputum Gram stain Mixed Bacterial Bridget NRG Bacterial sputum culture - 10/07/18 18:2 8 FREE TEXT EXTERNAL SUSCEPTIBILITY REPORTED 10/09 11 :48 NRG QUANTITY OF GROWTH Moderate Growth NRG Bacterial sputum culture [id number] NRG Dirithromycin susceptibility test by dis k diffusion - 10/07/18 18:28 Gentamicin susceptibility test by minimum inhibitory c oncentration <= NRG Trimethoprim/sulfamethoxazole susceptibi lity test by minimum inhibitoryconcentration <= NRG Levofloxacin susceptibility test by minimum inhibitory concentration <= NRG Ampicillin susceptibility test by minimum inhibitory c oncentration > NRG Cefazolin susceptibility test by minimum inhibitory co ncentration 4 NRG Ceftriaxone susceptibility test by minimum inhibitory concentration <= NRG Piperacillin/tazobactam susceptibility t est by minimum inhibitory concentration = NRG Ciprofloxacin susceptibility test by minimum inhibitor y concentration <= NRG Meropenem susceptibility test by minimum inhibitory co ncentration <= NRG Amoxicillin and clavulanate potassium susc NEAL = NRG Imipenem susceptibility test by minimum inhibitory con centration <= NRG Capillary blood glucose measurement by g lucometer (mass/volume) - 10/07/18 21:01 Capillary blood glucose measurement by glucometer (mas s/volume) 256 mg/dL 70-110 Capillary blood glucose measurement by g lucometer (mass/volume) - 10/08/18 00:01 Capillary blood glucose measurement by glucometer (mas s/volume) 245 mg/dL 70-110 Capillary blood glucose measurement by g lucometer (mass/volume) - 10/08/18 05:43 Capillary blood glucose measurement by glucometer (mas s/volume) 183 mg/dL 70-110 Complete blood count (CBC) with automate d white blood cell (WBC) differential - 10/08/18 06:20 Blood leukocytes automated count (number/volume) 6.9 10*3/uL 4.3-11.0 Blood erythrocytes automated count (number/volume) 3.32 10*6/uL 4.35-5.85 Venous blood hemoglobin measurement (mass/volume) 10.0 g/dL 13.3-17.7 Blood hematocrit (volume fraction) 30 % 40-54 Automated erythrocyte mean corpuscular volume 91 [ foz_us] 80-99 Automated erythrocyte mean corpuscular h emoglobin (mass per erythrocyte) 30 pg 25-34 Automated erythrocyte mean corpuscular h emoglobin concentration measurement (mass/volume) 33 g/dL 32-36 Automated erythrocyte distribution width ratio 15. 6 % 10.0- 14.5 Automated blood platelet count (count/volume) 96 1 0*3/uL 130-400 Automated blood platelet mean volume measurement 9.6 [foz_us] 7.4-10.4 Automated blood neutrophils/100 leukocytes 81 % 42-75 Automated blood lymphocytes/100 leukocytes 11 % 12-44 Blood monocytes/100 leukocytes 8 % 0-12 Automated blood eosinophils/100 leukocytes 1 % 0-10 Automated blood basophils/100 leukocytes 0 % 0-10 Blood neutrophils automated count (number/volume) 5.6 10*3 1.8-7.8 Blood lymphocytes automated count (number/volume) 0.7 10*3 1.0-4.0 Blood monocytes automated count (number/volume) 0. 5 10*3 0.0-1.0 Automated eosinophil count 0.1 10*3/uL 0 .0-0.3 Automated blood basophil count (count/volume) 0.0 10*3/uL 0.0-0.1 Comprehensive metabolic panel - 10/08/18 06:20 Serum or plasma sodium measurement (moles/volume) 136 mmol/L 135-145 Serum or plasma potassium measurement (moles/volume) 3.7 mmol/L 3.6-5.0 Serum or plasma chloride measurement (moles/volume) 105 mmol/L 98-107 Carbon dioxide 21 mmol/L 21-32 Serum or plasma anion gap determination (moles/volume) 10 mmol/L 5-14 Serum or plasma urea nitrogen measurement (mass/volume ) 9 mg/dL 7-18 Serum or plasma creatinine measurement (mass/volume) 0.68 mg/dL 0.60-1.30 Serum or plasma urea nitrogen/creatinine mass ratio 13 NRG Serum or plasma creatinine measurement w ith calculation of estimated glomerular filtration rate > NRG Serum or plasma glucose measurement (mass/volume) 170 mg/dL 70-105 Serum or plasma calcium measurement (mass/volume) 7.8 mg/dL 8.5-10.1 Serum or plasma total bilirubin measurement (mass/volu me) 0.8 mg/dL 0.1-1.0 Serum or plasma alkaline phosphatase donnell surement (enzymatic activity/volume) 87 U/L 40-136 Serum or plasma aspartate aminotransfera se measurement (enzymatic activity/volume) 21 U/L 5-34 Serum or plasma alanine aminotransferase measurement (enzymatic activity/volume) 44 U/L 0-55 Serum or plasma protein measurement (mass/volume) 5.1 g/dL 6.4-8.2 Serum or plasma albumin measurement (mass/volume) 2.6 g/dL 3.2-4.5 CALCIUM CORRECTED 8.9 mg/dL 8.5-10.1 Serum or plasma phosphate measurement (m ass/volume) - 10/08/18 06:20 Serum or plasma phosphate measurement (mass/volume) 2.6 mg/dL 2.3-4.7 Magnesium - 10/08/18 06:20 Magnesium 1.6 mg/dL 1.8-2.4 Vancomycin trough - 10/08/18 06:20 Vancomycin trough 10.1 ug/mL 10.0-20.0 Capillary blood glucose measurement by g lucometer (mass/volume) - 10/08/18 12:09 Capillary blood glucose measurement by glucometer (mas s/volume) 123 mg/dL 70-110 Bacterial catheter tip culture - 9 12:30 Bacterial catheter tip culture NG NRG Capillary blood glucose measurement by g lucometer (mass/volume) - 10/08/18 15:34 Capillary blood glucose measurement by glucometer (mas s/volume) 150 mg/dL 70-110 Capillary blood glucose measurement by g lucometer (mass/volume) - 10/08/18 20:11 Capillary blood glucose measurement by glucometer (mas s/volume) 192 mg/dL 70-110 Capillary blood glucose measurement by g lucometer (mass/volume) - 10/09/18 05:19 Capillary blood glucose measurement by glucometer (mas s/volume) 153 mg/dL 70-110 Automated blood complete blood count (he mogram) panel - 10/09/18 06:00 Blood leukocytes automated count (number/volume) 6.6 10*3/uL 4.3-11.0 Blood erythrocytes automated count (number/volume) 3.08 10*6/uL 4.35-5.85 Venous blood hemoglobin measurement (mass/volume) 9.2 g/dL 13.3-17.7 Blood hematocrit (volume fraction) 28 % 40-54 Automated erythrocyte mean corpuscular volume 91 [ foz_us] 80-99 Automated erythrocyte mean corpuscular h emoglobin (mass per erythrocyte) 30 pg 25-34 Automated erythrocyte mean corpuscular h emoglobin concentration measurement (mass/volume) 33 g/dL 32-36 Automated erythrocyte distribution width ratio 15. 9 % 10.0- 14.5 Automated blood platelet count (count/volume) 104 10*3/uL 130-400 Automated blood platelet mean volume measurement 9.7 [foz_us] 7.4-10.4 Comprehensive metabolic panel - 10/09/18 06:00 Serum or plasma sodium measurement (moles/volume) 136 mmol/L 135-145 Serum or plasma potassium measurement (moles/volume) 3.6 mmol/L 3.6-5.0 Serum or plasma chloride measurement (moles/volume) 105 mmol/L 98-107 Carbon dioxide 21 mmol/L 21-32 Serum or plasma anion gap determination (moles/volume) 10 mmol/L 5-14 Serum or plasma urea nitrogen measurement (mass/volume ) 8 mg/dL 7-18 Serum or plasma creatinine measurement (mass/volume) 0.72 mg/dL 0.60-1.30 Serum or plasma urea nitrogen/creatinine mass ratio 11 NRG Serum or plasma creatinine measurement w ith calculation of estimated glomerular filtration rate > NRG Serum or plasma glucose measurement (mass/volume) 138 mg/dL 70-105 Serum or plasma calcium measurement (mass/volume) 7.9 mg/dL 8.5-10.1 Serum or plasma total bilirubin measurement (mass/volu me) 0.8 mg/dL 0.1-1.0 Serum or plasma alkaline phosphatase donnell surement (enzymatic activity/volume) 89 U/L 40-136 Serum or plasma aspartate aminotransfera se measurement (enzymatic activity/volume) 27 U/L 5-34 Serum or plasma alanine aminotransferase measurement (enzymatic activity/volume) 46 U/L 0-55 Serum or plasma protein measurement (mass/volume) 5.0 g/dL 6.4-8.2 Serum or plasma albumin measurement (mass/volume) 2.5 g/dL 3.2-4.5 CALCIUM CORRECTED 9.1 mg/dL 8.5-10.1 Magnesium - 10/09/18 06:00 Magnesium 1.8 mg/dL 1.8-2.4 Vancomycin trough - 10/09/18 06:00 Vancomycin trough 13.8 ug/mL 10.0-20.0 Capillary blood glucose measurement by g lucometer (mass/volume) - 10/09/18 11:13 Capillary blood glucose measurement by glucometer (mas s/volume) 175 mg/dL 70-110 Capillary blood glucose measurement by g lucometer (mass/volume) - 10/09/18 15:30 Capillary blood glucose measurement by glucometer (mas s/volume) 185 mg/dL 70-110 Capillary blood glucose measurement by g lucometer (mass/volume) - 10/09/18 20:42 Capillary blood glucose measurement by glucometer (mas s/volume) 141 mg/dL 70-110 Capillary blood glucose measurement by g lucometer (mass/volume) - 10/10/18 05:18 Capillary blood glucose measurement by glucometer (mas s/volume) 152 mg/dL 70-110 Automated blood complete blood count (he mogram) panel - 10/10/18 06:14 Blood leukocytes automated count (number/volume) 5.8 10*3/uL 4.3-11.0 Blood erythrocytes automated count (number/volume) 2.98 10*6/uL 4.35-5.85 Venous blood hemoglobin measurement (mass/volume) 8.9 g/dL 13.3-17.7 Blood hematocrit (volume fraction) 27 % 40-54 Automated erythrocyte mean corpuscular volume 91 [ foz_us] 80-99 Automated erythrocyte mean corpuscular h emoglobin (mass per erythrocyte) 30 pg 25-34 Automated erythrocyte mean corpuscular h emoglobin concentration measurement (mass/volume) 33 g/dL 32-36 Automated erythrocyte distribution width ratio 15. 6 % 10.0- 14.5 Automated blood platelet count (count/volume) 99 1 0*3/uL 130-400 Automated blood platelet mean volume measurement 10.1 [foz_us] 7.4-10.4 Comprehensive metabolic panel - 10/10/18 06:14 Serum or plasma sodium measurement (moles/volume) 135 mmol/L 135-145 Serum or plasma potassium measurement (moles/volume) 3.2 mmol/L 3.6-5.0 Serum or plasma chloride measurement (moles/volume) 104 mmol/L 98-107 Carbon dioxide 21 mmol/L 21-32 Serum or plasma anion gap determination (moles/volume) 10 mmol/L 5-14 Serum or plasma urea nitrogen measurement (mass/volume ) 15 mg/dL 7-18 Serum or plasma creatinine measurement (mass/volume) 1.30 mg/dL 0.60-1.30 Serum or plasma urea nitrogen/creatinine mass ratio 12 NRG Serum or plasma creatinine measurement w ith calculation of estimated glomerular filtration rate 54 NRG Serum or plasma glucose measurement (mass/volume) 135 mg/dL 70-105 Serum or plasma calcium measurement (mass/volume) 8.3 mg/dL 8.5-10.1 Serum or plasma total bilirubin measurement (mass/volu me) 0.7 mg/dL 0.1-1.0 Serum or plasma alkaline phosphatase donnell surement (enzymatic activity/volume) 85 U/L 40-136 Serum or plasma aspartate aminotransfera se measurement (enzymatic activity/volume) 30 U/L 5-34 Serum or plasma alanine aminotransferase measurement (enzymatic activity/volume) 44 U/L 0-55 Serum or plasma protein measurement (mass/volume) 5.1 g/dL 6.4-8.2 Serum or plasma albumin measurement (mass/volume) 2.4 g/dL 3.2-4.5 CALCIUM CORRECTED 9.6 mg/dL 8.5-10.1 Magnesium - 10/10/18 06:14 Magnesium 1.7 mg/dL 1.8-2.4 Clostridium difficile DNA detection by p robe and target amplification method - 10/10/18 10:31 C DIFF MOLECULAR RESULT Negative for toxigen ic C diff by molecular method NRG Clostridium difficile DNA detection by p robe and target amplification method Negative NRG C DIFFICILE AG + TOXIN A/B. - 10/10/18 1 0:31 FREE TEXT ENTRY 2 POSITIVE FOR GDH ANTIGEN NRG FREE TEXT ENTRY 3 NEGATIVE FOR TOXINS A AND B NRG CALL POSITIVES (F1 HELP) CALLED TO LEIDA SINGH 10/10/18 11:35 BY Mara BRICEÑO NRG RESULTS INDETERMINANT; MOLECULAR TEST TO FOLLOW NRG Capillary blood glucose measurement by g lucometer (mass/volume) - 10/10/18 11:01 Capillary blood glucose measurement by glucometer (mas s/volume) 139 mg/dL 70-110 Capillary blood glucose measurement by g lucometer (mass/volume) - 10/10/18 15:35 Capillary blood glucose measurement by glucometer (mas s/volume) 172 mg/dL 70-110 Complete blood count (CBC) with automate d white blood cell (WBC) differential - 10/10/18 19:01 Blood leukocytes automated count (number/volume) 5.5 10*3/uL 4.3-11.0 Blood erythrocytes automated count (number/volume) 2.80 10*6/uL 4.35-5.85 Venous blood hemoglobin measurement (mass/volume) 8.4 g/dL 13.3-17.7 Blood hematocrit (volume fraction) 25 % 40-54 Automated erythrocyte mean corpuscular volume 89 [ foz_us] 80-99 Automated erythrocyte mean corpuscular h emoglobin (mass per erythrocyte) 30 pg 25-34 Automated erythrocyte mean corpuscular h emoglobin concentration measurement (mass/volume) 34 g/dL 32-36 Automated erythrocyte distribution width ratio 15. 6 % 10.0- 14.5 Automated blood platelet count (count/volume) 108 10*3/uL 130-400 Automated blood platelet mean volume measurement 9.5 [foz_us] 7.4-10.4 Automated blood neutrophils/100 leukocytes 72 % 42-75 Automated blood lymphocytes/100 leukocytes 19 % 12-44 Blood monocytes/100 leukocytes 5 % 0-12 Automated blood eosinophils/100 leukocytes 4 % 0-10 Automated blood basophils/100 leukocytes 0 % 0-10 Blood neutrophils automated count (number/volume) 4.0 10*3 1.8-7.8 Blood lymphocytes automated count (number/volume) 1.1 10*3 1.0-4.0 Blood monocytes automated count (number/volume) 0. 3 10*3 0.0-1.0 Automated eosinophil count 0.2 10*3/uL 0 .0-0.3 Automated blood basophil count (count/volume) 0.0 10*3/uL 0.0-0.1 Blood lactic acid measurement (moles/vol ume) - 10/10/18 19:01 Blood lactic acid measurement (moles/volume) 0.92 mmol/L 0.50-2.00 Whole blood basic metabolic panel - 09/30 04/20 19:01 Serum or plasma sodium measurement (moles/volume) 134 mmol/L 135-145 Serum or plasma potassium measurement (moles/volume) 3.2 mmol/L 3.6-5.0 Serum or plasma chloride measurement (moles/volume) 103 mmol/L 98-107 Carbon dioxide 19 mmol/L 21-32 Serum or plasma anion gap determination (moles/volume) 12 mmol/L 5-14 Serum or plasma urea nitrogen measurement (mass/volume ) 14 mg/dL 7-18 Serum or plasma creatinine measurement (mass/volume) 1.23 mg/dL 0.60-1.30 Serum or plasma urea nitrogen/creatinine mass ratio 11 NRG Serum or plasma creatinine measurement w ith calculation of estimated glomerular filtration rate 57 NRG Serum or plasma glucose measurement (mass/volume) 107 mg/dL 70-105 Serum or plasma calcium measurement (mass/volume) 8.2 mg/dL 8.5-10.1 Serum or plasma lithium measurement (mol es/volume) - 10/10/18 19:01 BNP PT 948.9 pg/mL <100.0 Capillary blood glucose measurement by g lucometer (mass/volume) - 10/10/18 20:42 Capillary blood glucose measurement by glucometer (mas s/volume) 160 mg/dL 70-110 Complete blood count (CBC) with automate d white blood cell (WBC) differential - 10/11/18 02:30 Blood leukocytes automated count (number/volume) 5.6 10*3/uL 4.3-11.0 Blood erythrocytes automated count (number/volume) 2.82 10*6/uL 4.35-5.85 Venous blood hemoglobin measurement (mass/volume) 8.4 g/dL 13.3-17.7 Blood hematocrit (volume fraction) 25 % 40-54 Automated erythrocyte mean corpuscular volume 90 [ foz_us] 80-99 Automated erythrocyte mean corpuscular h emoglobin (mass per erythrocyte) 30 pg 25-34 Automated erythrocyte mean corpuscular h emoglobin concentration measurement (mass/volume) 33 g/dL 32-36 Automated erythrocyte distribution width ratio 15. 8 % 10.0- 14.5 Automated blood platelet count (count/volume) 109 10*3/uL 130-400 Automated blood platelet mean volume measurement 9.6 [foz_us] 7.4-10.4 Automated blood neutrophils/100 leukocytes 72 % 42-75 Automated blood lymphocytes/100 leukocytes 19 % 12-44 Blood monocytes/100 leukocytes 5 % 0-12 Automated blood eosinophils/100 leukocytes 4 % 0-10 Automated blood basophils/100 leukocytes 0 % 0-10 Blood neutrophils automated count (number/volume) 4.0 10*3 1.8-7.8 Blood lymphocytes automated count (number/volume) 1.0 10*3 1.0-4.0 Blood monocytes automated count (number/volume) 0. 3 10*3 0.0-1.0 Automated eosinophil count 0.2 10*3/uL 0 .0-0.3 Automated blood basophil count (count/volume) 0.0 10*3/uL 0.0-0.1 Whole blood basic metabolic panel - 09/30 05/21 02:30 Serum or plasma sodium measurement (moles/volume) 135 mmol/L 135-145 Serum or plasma potassium measurement (moles/volume) 3.9 mmol/L 3.6-5.0 Serum or plasma chloride measurement (moles/volume) 104 mmol/L 98-107 Carbon dioxide 19 mmol/L 21-32 Serum or plasma anion gap determination (moles/volume) 12 mmol/L 5-14 Serum or plasma urea nitrogen measurement (mass/volume ) 14 mg/dL 7-18 Serum or plasma creatinine measurement (mass/volume) 1.25 mg/dL 0.60-1.30 Serum or plasma urea nitrogen/creatinine mass ratio 11 NRG Serum or plasma creatinine measurement w ith calculation of estimated glomerular filtration rate 56 NRG Serum or plasma glucose measurement (mass/volume) 192 mg/dL 70-105 Serum or plasma calcium measurement (mass/volume) 8.3 mg/dL 8.5-10.1 Serum or plasma phosphate measurement (m ass/volume) - 10/11/18 02:30 Serum or plasma phosphate measurement (mass/volume) 3.1 mg/dL 2.3-4.7 Magnesium - 10/11/18 02:30 Magnesium 1.8 mg/dL 1.8-2.4 Capillary blood glucose measurement by g lucometer (mass/volume) - 10/11/18 05:49 Capillary blood glucose measurement by glucometer (mas s/volume) 164 mg/dL 70-110 RED CELLS LEUKO REDUCED AS1 - 10/11/18 1 0:17 RED CELLS LEUKO REDUCED AS1 T RANSFUSED 10/11/18 1110 NRG Blood type T Indirect antibody screen pa hugo - 10/11/18 10:17 WRISTBAND NUMBER [id number] NRG ABO+Rh group OP NRG Blood group antibody screen NEGATIVE NR G Capillary blood glucose measurement by g lucometer (mass/volume) - 10/11/18 10:22 Capillary blood glucose measurement by glucometer (mas s/volume) 238 mg/dL 70-110 Comprehensive metabolic panel - 10/12/18 05:42 Serum or plasma sodium measurement (moles/volume) 140 mmol/L 135-145 Serum or plasma potassium measurement (moles/volume) 2.8 mmol/L 3.6-5.0 Serum or plasma chloride measurement (moles/volume) 104 mmol/L 98-107 Carbon dioxide 25 mmol/L 21-32 Serum or plasma anion gap determination (moles/volume) 11 mmol/L 5-14 Serum or plasma urea nitrogen measurement (mass/volume ) 14 mg/dL 7-18 Serum or plasma creatinine measurement (mass/volume) 1.07 mg/dL 0.60-1.30 Serum or plasma urea nitrogen/creatinine mass ratio 13 NRG Serum or plasma creatinine measurement w ith calculation of estimated glomerular filtration rate > NRG Serum or plasma glucose measurement (mass/volume) 145 mg/dL 70-105 Serum or plasma calcium measurement (mass/volume) 8.5 mg/dL 8.5-10.1 Serum or plasma total bilirubin measurement (mass/volu me) 0.6 mg/dL 0.1-1.0 Serum or plasma alkaline phosphatase donnell surement (enzymatic activity/volume) 78 U/L 40-136 Serum or plasma aspartate aminotransfera se measurement (enzymatic activity/volume) 28 U/L 5-34 Serum or plasma alanine aminotransferase measurement (enzymatic activity/volume) 45 U/L 0-55 Serum or plasma protein measurement (mass/volume) 5.2 g/dL 6.4-8.2 Serum or plasma albumin measurement (mass/volume) 2.3 g/dL 3.2-4.5 CALCIUM CORRECTED 9.9 mg/dL 8.5-10.1 Magnesium - 10/12/18 05:42 Magnesium 1.4 mg/dL 1.8-2.4 Automated blood complete blood count ([employer]) panel - 10/12/18 05:42 Blood leukocytes automated count (number/volume) 5.5 10*3/uL 4.3-11.0 Blood erythrocytes automated count (number/volume) 3.41 10*6/uL 4.35-5.85 Venous blood hemoglobin measurement (mass/volume) 10.1 g/dL 13.3-17.7 Blood hematocrit (volume fraction) 30 % 40-54 Automated erythrocyte mean corpuscular volume 88 [ foz_us] 80-99 Automated erythrocyte mean corpuscular h emoglobin (mass per erythrocyte) 30 pg 25-34 Automated erythrocyte mean corpuscular h emoglobin concentration measurement (mass/volume) 34 g/dL 32-36 Automated erythrocyte distribution width ratio 15. 8 % 10.0- 14.5 Automated blood platelet count (count/volume) 132 10*3/uL 130-400 Automated blood platelet mean volume measurement 10.1 [foz_us] 7.4-10.4 Automated blood complete blood count ([employer] mogram) panel - 10/13/18 04:30 Blood leukocytes automated count (number/volume) 5.6 10*3/uL 4.3-11.0 Blood erythrocytes automated count (number/volume) 3.36 10*6/uL 4.35-5.85 Venous blood hemoglobin measurement (mass/volume) 9.9 g/dL 13.3-17.7 Blood hematocrit (volume fraction) 29 % 40-54 Automated erythrocyte mean corpuscular volume 87 [ foz_us] 80-99 Automated erythrocyte mean corpuscular h emoglobin (mass per erythrocyte) 29 pg 25-34 Automated erythrocyte mean corpuscular h emoglobin concentration measurement (mass/volume) 34 g/dL 32-36 Automated erythrocyte distribution width ratio 15. 9 % 10.0- 14.5 Automated blood platelet count (count/volume) 192 10*3/uL 130-400 Automated blood platelet mean volume measurement 9.8 [foz_us] 7.4-10.4 Comprehensive metabolic panel - 10/13/18 04:30 Serum or plasma sodium measurement (moles/volume) 135 mmol/L 135-145 Serum or plasma potassium measurement (moles/volume) 2.7 mmol/L 3.6-5.0 Serum or plasma chloride measurement (moles/volume) 100 mmol/L 98-107 Carbon dioxide 23 mmol/L 21-32 Serum or plasma anion gap determination (moles/volume) 12 mmol/L 5-14 Serum or plasma urea nitrogen measurement (mass/volume ) 12 mg/dL 7-18 Serum or plasma creatinine measurement (mass/volume) 0.95 mg/dL 0.60-1.30 Serum or plasma urea nitrogen/creatinine mass ratio 13 NRG Serum or plasma creatinine measurement w ith calculation of estimated glomerular filtration rate > NRG Serum or plasma glucose measurement (mass/volume) 123 mg/dL 70-105 Serum or plasma calcium measurement (mass/volume) 8.1 mg/dL 8.5-10.1 Serum or plasma total bilirubin measurement (mass/volu me) 0.5 mg/dL 0.1-1.0 Serum or plasma alkaline phosphatase donnell surement (enzymatic activity/volume) 72 U/L 40-136 Serum or plasma aspartate aminotransfera se measurement (enzymatic activity/volume) 26 U/L 5-34 Serum or plasma alanine aminotransferase measurement (enzymatic activity/volume) 43 U/L 0-55 Serum or plasma protein measurement (mass/volume) 5.0 g/dL 6.4-8.2 Serum or plasma albumin measurement (mass/volume) 2.2 g/dL 3.2-4.5 CALCIUM CORRECTED 9.5 mg/dL 8.5-10.1 Magnesium - 10/13/18 04:30 Magnesium 1.5 mg/dL 1.8-2.4 Automated blood complete blood count (he mogram) panel - 10/14/18 05:05 Blood leukocytes automated count (number/volume) 6.5 10*3/uL 4.3-11.0 Blood erythrocytes automated count (number/volume) 3.38 10*6/uL 4.35-5.85 Venous blood hemoglobin measurement (mass/volume) 9.9 g/dL 13.3-17.7 Blood hematocrit (volume fraction) 30 % 40-54 Automated erythrocyte mean corpuscular volume 88 [ foz_us] 80-99 Automated erythrocyte mean corpuscular h emoglobin (mass per erythrocyte) 29 pg 25-34 Automated erythrocyte mean corpuscular h emoglobin concentration measurement (mass/volume) 33 g/dL 32-36 Automated erythrocyte distribution width ratio 15. 9 % 10.0- 14.5 Automated blood platelet count (count/volume) 229 10*3/uL 130-400 Automated blood platelet mean volume measurement 10.0 [foz_us] 7.4-10.4 Comprehensive metabolic panel - 10/14/18 05:05 Serum or plasma sodium measurement (moles/volume) 135 mmol/L 135-145 Serum or plasma potassium measurement (moles/volume) 3.3 mmol/L 3.6-5.0 Serum or plasma chloride measurement (moles/volume) 100 mmol/L 98-107 Carbon dioxide 24 mmol/L 21-32 Serum or plasma anion gap determination (moles/volume) 11 mmol/L 5-14 Serum or plasma urea nitrogen measurement (mass/volume ) 13 mg/dL 7-18 Serum or plasma creatinine measurement (mass/volume) 0.88 mg/dL 0.60-1.30 Serum or plasma urea nitrogen/creatinine mass ratio 15 NRG Serum or plasma creatinine measurement w ith calculation of estimated glomerular filtration rate > NRG Serum or plasma glucose measurement (mass/volume) 127 mg/dL 70-105 Serum or plasma calcium measurement (mass/volume) 8.3 mg/dL 8.5-10.1 Serum or plasma total bilirubin measurement (mass/volu me) 0.5 mg/dL 0.1-1.0 Serum or plasma alkaline phosphatase donnell surement (enzymatic activity/volume) 76 U/L 40-136 Serum or plasma aspartate aminotransfera se measurement (enzymatic activity/volume) 27 U/L 5-34 Serum or plasma alanine aminotransferase measurement (enzymatic activity/volume) 36 U/L 0-55 Serum or plasma protein measurement (mass/volume) 5.2 g/dL 6.4-8.2 Serum or plasma albumin measurement (mass/volume) 2.2 g/dL 3.2-4.5 CALCIUM CORRECTED 9.7 mg/dL 8.5-10.1 Magnesium - 10/14/18 05:05 Magnesium 1.6 mg/dL 1.8-2.4 Sputum Gram stain - 10/14/18 10:35 Sputum Gram stain relevant, intertret with caution . NRG Bacterial sputum culture - 10/14/18 10:3 5 FREE TEXT EXTERNAL SUSCEPTIBILITY REPORTED 10/16/18 11:15 NRG QUANTITY OF GROWTH Moderate Growth NRG FREE TEXT ENTRY 2 ID REPORTED 10/15/18 14:05 NRG Bacterial sputum culture [id number] NRG Dirithromycin susceptibility test by dis k diffusion - 10/14/18 10:35 Gentamicin susceptibility test by minimum inhibitory c oncentration <= NRG Trimethoprim/sulfamethoxazole susceptibi lity test by minimum inhibitoryconcentration S NRG Levofloxacin susceptibility test by minimum inhibitory concentration <= NRG Ampicillin susceptibility test by minimum inhibitory c oncentration > NRG Cefazolin susceptibility test by minimum inhibitory co ncentration R NRG Ceftriaxone susceptibility test by minimum inhibitory concentration <= NRG Piperacillin/tazobactam susceptibility t est by minimum inhibitory concentration = NRG Ciprofloxacin susceptibility test by minimum inhibitor y concentration <= NRG Meropenem susceptibility test by minimum inhibitory co ncentration <= NRG Amoxicillin and clavulanate potassium susc NEAL > NRG Serum or plasma phosphate measurement (m ass/volume) - 10/14/18 11:40 Serum or plasma phosphate measurement (mass/volume) 3.0 mg/dL 2.3-4.7 Magnesium - 10/14/18 11:40 Magnesium 1.4 mg/dL 1.8-2.4 Serum or plasma lithium measurement (mol es/volume) - 10/14/18 11:40 BNP PT 559.7 pg/mL <100.0 Complete blood count (CBC) with automate d white blood cell (WBC) differential - 10/15/18 05:40 Blood leukocytes automated count (number/volume) 6.7 10*3/uL 4.3-11.0 Blood erythrocytes automated count (number/volume) 3.38 10*6/uL 4.35-5.85 Venous blood hemoglobin measurement (mass/volume) 9.7 g/dL 13.3-17.7 Blood hematocrit (volume fraction) 29 % 40-54 Automated erythrocyte mean corpuscular volume 87 [ foz_us] 80-99 Automated erythrocyte mean corpuscular h emoglobin (mass per erythrocyte) 29 pg 25-34 Automated erythrocyte mean corpuscular h emoglobin concentration measurement (mass/volume) 33 g/dL 32-36 Automated erythrocyte distribution width ratio 15. 8 % 10.0- 14.5 Automated blood platelet count (count/volume) 267 10*3/uL 130-400 Automated blood platelet mean volume measurement 10.1 [foz_us] 7.4-10.4 Automated blood neutrophils/100 leukocytes 88 % 42-75 Automated blood lymphocytes/100 leukocytes 8 % 12-44 Blood monocytes/100 leukocytes 4 % 0-12 Automated blood eosinophils/100 leukocytes 0 % 0-10 Automated blood basophils/100 leukocytes 0 % 0-10 Blood neutrophils automated count (number/volume) 5.8 10*3 1.8-7.8 Blood lymphocytes automated count (number/volume) 0.5 10*3 1.0-4.0 Blood monocytes automated count (number/volume) 0. 3 10*3 0.0-1.0 Automated eosinophil count 0.0 10*3/uL 0 .0-0.3 Automated blood basophil count (count/volume) 0.0 10*3/uL 0.0-0.1 Comprehensive metabolic panel - 10/15/18 05:40 Serum or plasma sodium measurement (moles/volume) 137 mmol/L 135-145 Serum or plasma potassium measurement (moles/volume) 3.1 mmol/L 3.6-5.0 Serum or plasma chloride measurement (moles/volume) 100 mmol/L 98-107 Carbon dioxide 26 mmol/L 21-32 Serum or plasma anion gap determination (moles/volume) 11 mmol/L 5-14 Serum or plasma urea nitrogen measurement (mass/volume ) 19 mg/dL 7-18 Serum or plasma creatinine measurement (mass/volume) 1.05 mg/dL 0.60-1.30 Serum or plasma urea nitrogen/creatinine mass ratio 18 NRG Serum or plasma creatinine measurement w ith calculation of estimated glomerular filtration rate > NRG Serum or plasma glucose measurement (mass/volume) 312 mg/dL 70-105 Serum or plasma calcium measurement (mass/volume) 8.4 mg/dL 8.5-10.1 Serum or plasma total bilirubin measurement (mass/volu me) 0.4 mg/dL 0.1-1.0 Serum or plasma alkaline phosphatase donnell surement (enzymatic activity/volume) 82 U/L 40-136 Serum or plasma aspartate aminotransfera se measurement (enzymatic activity/volume) 19 U/L 5-34 Serum or plasma alanine aminotransferase measurement (enzymatic activity/volume) 38 U/L 0-55 Serum or plasma protein measurement (mass/volume) 5.4 g/dL 6.4-8.2 Serum or plasma albumin measurement (mass/volume) 2.4 g/dL 3.2-4.5 CALCIUM CORRECTED 9.7 mg/dL 8.5-10.1 Serum or plasma phosphate measurement (m ass/volume) - 10/15/18 05:40 Serum or plasma phosphate measurement (mass/volume) 4.0 mg/dL 2.3-4.7 Magnesium - 10/15/18 05:40 Magnesium 1.5 mg/dL 1.8-2.4 PT panel in platelet poor plasma by coag ulation assay - 10/15/18 10:05 Prothrombin time (PT) in platelet poor plasma by coagu lation assay 19.3 s 12.2-14.7 INR in platelet poor plasma or blood by coagulation as say 1.6 0.8-1.4 Activated partial thromboplastin time (a PTT) in platelet poor plasma bycoagulation assay - 10/15/18 10:05 Activated partial thromboplastin time (a PTT) in platelet poor plasma bycoagulation assay 34 s 24-35 Automated blood complete blood count (he mogram) panel - 10/15/18 10:05 Blood leukocytes automated count (number/volume) 8.1 10*3/uL 4.3-11.0 Blood erythrocytes automated count (number/volume) 3.43 10*6/uL 4.35-5.85 Venous blood hemoglobin measurement (mass/volume) 9.9 g/dL 13.3-17.7 Blood hematocrit (volume fraction) 30 % 40-54 Automated erythrocyte mean corpuscular volume 88 [ foz_us] 80-99 Automated erythrocyte mean corpuscular h emoglobin (mass per erythrocyte) 29 pg 25-34 Automated erythrocyte mean corpuscular h emoglobin concentration measurement (mass/volume) 33 g/dL 32-36 Automated erythrocyte distribution width ratio 15. 7 % 10.0- 14.5 Automated blood platelet count (count/volume) 281 10*3/uL 130-400 Automated blood platelet mean volume measurement 10.3 [foz_us] 7.4-10.4 Activated partial thromboplastin time (a PTT) in platelet poor plasma bycoagulation assay - 10/15/18 14:18 Activated partial thromboplastin time (a PTT) in platelet poor plasma bycoagulation assay 88 s 24-35 Comprehensive metabolic panel - 10/15/18 16:50 Serum or plasma sodium measurement (moles/volume) 133 mmol/L 135-145 Serum or plasma potassium measurement (moles/volume) 3.7 mmol/L 3.6-5.0 Serum or plasma chloride measurement (moles/volume) 98 mmol/L 98-107 Carbon dioxide 25 mmol/L 21-32 Serum or plasma anion gap determination (moles/volume) 10 mmol/L 5-14 Serum or plasma urea nitrogen measurement (mass/volume ) 20 mg/dL 7-18 Serum or plasma creatinine measurement (mass/volume) 1.09 mg/dL 0.60-1.30 Serum or plasma urea nitrogen/creatinine mass ratio 18 NRG Serum or plasma creatinine measurement w ith calculation of estimated glomerular filtration rate > NRG Serum or plasma glucose measurement (mass/volume) 438 mg/dL 70-105 Serum or plasma calcium measurement (mass/volume) 7.9 mg/dL 8.5-10.1 Serum or plasma total bilirubin measurement (mass/volu me) 0.3 mg/dL 0.1-1.0 Serum or plasma alkaline phosphatase donnell surement (enzymatic activity/volume) 87 U/L 40-136 Serum or plasma aspartate aminotransfera se measurement (enzymatic activity/volume) 16 U/L 5-34 Serum or plasma alanine aminotransferase measurement (enzymatic activity/volume) 39 U/L 0-55 Serum or plasma protein measurement (mass/volume) 4.8 g/dL 6.4-8.2 Serum or plasma albumin measurement (mass/volume) 2.3 g/dL 3.2-4.5 CALCIUM CORRECTED 9.3 mg/dL 8.5-10.1 Serum or plasma phosphate measurement (m ass/volume) - 10/15/18 16:50 Serum or plasma phosphate measurement (mass/volume) 2.8 mg/dL 2.3-4.7 Magnesium - 10/15/18 16:50 Magnesium 1.9 mg/dL 1.8-2.4 Activated partial thromboplastin time (a PTT) in platelet poor plasma bycoagulation assay - 10/15/18 20:33 Activated partial thromboplastin time (a PTT) in platelet poor plasma bycoagulation assay 94 s 24-35 Capillary blood glucose measurement by g lucometer (mass/volume) - 10/15/18 21:24 Capillary blood glucose measurement by glucometer (mas s/volume) 347 mg/dL 70-110 Complete blood count (CBC) with automate d white blood cell (WBC) differential - 10/16/18 05:06 Blood leukocytes automated count (number/volume) 8.5 10*3/uL 4.3-11.0 Blood erythrocytes automated count (number/volume) 3.23 10*6/uL 4.35-5.85 Venous blood hemoglobin measurement (mass/volume) 9.4 g/dL 13.3-17.7 Blood hematocrit (volume fraction) 28 % 40-54 Automated erythrocyte mean corpuscular volume 88 [ foz_us] 80-99 Automated erythrocyte mean corpuscular h emoglobin (mass per erythrocyte) 29 pg 25-34 Automated erythrocyte mean corpuscular h emoglobin concentration measurement (mass/volume) 33 g/dL 32-36 Automated erythrocyte distribution width ratio 15. 4 % 10.0- 14.5 Automated blood platelet count (count/volume) 324 10*3/uL 130-400 Automated blood platelet mean volume measurement 10.0 [foz_us] 7.4-10.4 Automated blood neutrophils/100 leukocytes 82 % 42-75 Automated blood lymphocytes/100 leukocytes 9 % 12-44 Blood monocytes/100 leukocytes 8 % 0-12 Automated blood eosinophils/100 leukocytes 1 % 0-10 Automated blood basophils/100 leukocytes 0 % 0-10 Blood neutrophils automated count (number/volume) 7.0 10*3 1.8-7.8 Blood lymphocytes automated count (number/volume) 0.8 10*3 1.0-4.0 Blood monocytes automated count (number/volume) 0. 7 10*3 0.0-1.0 Automated eosinophil count 0.1 10*3/uL 0 .0-0.3 Automated blood basophil count (count/volume) 0.0 10*3/uL 0.0-0.1 Whole blood basic metabolic panel - 09/30 10/18 05:06 Serum or plasma sodium measurement (moles/volume) 136 mmol/L 135-145 Serum or plasma potassium measurement (moles/volume) 3.5 mmol/L 3.6-5.0 Serum or plasma chloride measurement (moles/volume) 100 mmol/L 98-107 Carbon dioxide 25 mmol/L 21-32 Serum or plasma anion gap determination (moles/volume) 11 mmol/L 5-14 Serum or plasma urea nitrogen measurement (mass/volume ) 19 mg/dL 7-18 Serum or plasma creatinine measurement (mass/volume) 0.89 mg/dL 0.60-1.30 Serum or plasma urea nitrogen/creatinine mass ratio 21 NRG Serum or plasma creatinine measurement w ith calculation of estimated glomerular filtration rate > NRG Serum or plasma glucose measurement (mass/volume) 232 mg/dL 70-105 Serum or plasma calcium measurement (mass/volume) 8.4 mg/dL 8.5-10.1 Serum or plasma phosphate measurement (m ass/volume) - 10/16/18 05:06 Serum or plasma phosphate measurement (mass/volume) 3.0 mg/dL 2.3-4.7 Magnesium - 10/16/18 05:06 Magnesium 1.7 mg/dL 1.8-2.4 Activated partial thromboplastin time (a PTT) in platelet poor plasma bycoagulation assay - 10/16/18 05:06 Activated partial thromboplastin time (a PTT) in platelet poor plasma bycoagulation assay 116 s 24-35 Capillary blood glucose measurement by g lucometer (mass/volume) - 10/16/18 11:08 Capillary blood glucose measurement by glucometer (mas s/volume) 291 mg/dL 70-110 Activated partial thromboplastin time (a PTT) in platelet poor plasma bycoagulation assay - 10/16/18 12:22 Activated partial thromboplastin time (a PTT) in platelet poor plasma bycoagulation assay 73 s 24-35 Capillary blood glucose measurement by g lucometer (mass/volume) - 10/16/18 16:11 Capillary blood glucose measurement by glucometer (mas s/volume) 285 mg/dL 70-110 Activated partial thromboplastin time (a PTT) in platelet poor plasma bycoagulation assay - 10/16/18 18:10 Activated partial thromboplastin time (a PTT) in platelet poor plasma bycoagulation assay 77 s 24-35 Capillary blood glucose measurement by g lucometer (mass/volume) - 10/16/18 20:49 Capillary blood glucose measurement by glucometer (mas s/volume) 270 mg/dL 70-110 Complete blood count (CBC) with automate d white blood cell (WBC) differential - 10/17/18 05:12 Blood leukocytes automated count (number/volume) 7.9 10*3/uL 4.3-11.0 Blood erythrocytes automated count (number/volume) 3.23 10*6/uL 4.35-5.85 Venous blood hemoglobin measurement (mass/volume) 9.3 g/dL 13.3-17.7 Blood hematocrit (volume fraction) 28 % 40-54 Automated erythrocyte mean corpuscular volume 88 [ foz_us] 80-99 Automated erythrocyte mean corpuscular h emoglobin (mass per erythrocyte) 29 pg 25-34 Automated erythrocyte mean corpuscular h emoglobin concentration measurement (mass/volume) 33 g/dL 32-36 Automated erythrocyte distribution width ratio 16. 1 % 10.0- 14.5 Automated blood platelet count (count/volume) 398 10*3/uL 130-400 Automated blood platelet mean volume measurement 9.8 [foz_us] 7.4-10.4 Automated blood neutrophils/100 leukocytes 72 % 42-75 Automated blood lymphocytes/100 leukocytes 16 % 12-44 Blood monocytes/100 leukocytes 8 % 0-12 Automated blood eosinophils/100 leukocytes 4 % 0-10 Automated blood basophils/100 leukocytes 0 % 0-10 Blood neutrophils automated count (number/volume) 5.7 10*3 1.8-7.8 Blood lymphocytes automated count (number/volume) 1.3 10*3 1.0-4.0 Blood monocytes automated count (number/volume) 0. 6 10*3 0.0-1.0 Automated eosinophil count 0.3 10*3/uL 0 .0-0.3 Automated blood basophil count (count/volume) 0.0 10*3/uL 0.0-0.1 Whole blood basic metabolic panel - 09/30 11/18 05:12 Serum or plasma sodium measurement (moles/volume) 134 mmol/L 135-145 Serum or plasma potassium measurement (moles/volume) 4.1 mmol/L 3.6-5.0 Serum or plasma chloride measurement (moles/volume) 100 mmol/L 98-107 Carbon dioxide 26 mmol/L 21-32 Serum or plasma anion gap determination (moles/volume) 8 mmol/L 5-14 Serum or plasma urea nitrogen measurement (mass/volume ) 14 mg/dL 7-18 Serum or plasma creatinine measurement (mass/volume) 0.80 mg/dL 0.60-1.30 Serum or plasma urea nitrogen/creatinine mass ratio 18 NRG Serum or plasma creatinine measurement w ith calculation of estimated glomerular filtration rate > NRG Serum or plasma glucose measurement (mass/volume) 153 mg/dL 70-105 Serum or plasma calcium measurement (mass/volume) 8.2 mg/dL 8.5-10.1 Serum or plasma phosphate measurement (m ass/volume) - 10/17/18 05:12 Serum or plasma phosphate measurement (mass/volume) 2.7 mg/dL 2.3-4.7 Magnesium - 10/17/18 05:12 Magnesium 1.6 mg/dL 1.8-2.4 Activated partial thromboplastin time (a PTT) in platelet poor plasma bycoagulation assay - 10/17/18 05:12 Activated partial thromboplastin time (a PTT) in platelet poor plasma bycoagulation assay 111 s 24-35 Sputum Gram stain - 10/17/18 08:23 Sputum Gram stain RELEVANT, INTERPRET WITH CAUTION . NRG Bacterial sputum culture - 10/17/18 08:2 3 QUANTITY OF GROWTH LARGE AMOUNT NRG Bacterial sputum culture GRAM POS M NRG Capillary blood glucose measurement by g lucometer (mass/volume) - 10/17/18 11:25 Capillary blood glucose measurement by glucometer (mas s/volume) 181 mg/dL 70-110 Capillary blood glucose measurement by g lucometer (mass/volume) - 10/17/18 16:20 Capillary blood glucose measurement by glucometer (mas s/volume) 252 mg/dL 70-110 Capillary blood glucose measurement by g lucometer (mass/volume) - 10/17/18 20:53 Capillary blood glucose measurement by glucometer (mas s/volume) 191 mg/dL 70-110 Complete blood count (CBC) with automate d white blood cell (WBC) differential - 10/18/18 05:50 Blood leukocytes automated count (number/volume) 9.9 10*3/uL 4.3-11.0 Blood erythrocytes automated count (number/volume) 3.75 10*6/uL 4.35-5.85 Venous blood hemoglobin measurement (mass/volume) 10.8 g/dL 13.3-17.7 Blood hematocrit (volume fraction) 33 % 40-54 Automated erythrocyte mean corpuscular volume 88 [ foz_us] 80-99 Automated erythrocyte mean corpuscular h emoglobin (mass per erythrocyte) 29 pg 25-34 Automated erythrocyte mean corpuscular h emoglobin concentration measurement (mass/volume) 33 g/dL 32-36 Automated erythrocyte distribution width ratio 16. 4 % 10.0- 14.5 Automated blood platelet count (count/volume) 388 10*3/uL 130-400 Automated blood platelet mean volume measurement 9.7 [foz_us] 7.4-10.4 Automated blood neutrophils/100 leukocytes 71 % 42-75 Automated blood lymphocytes/100 leukocytes 17 % 12-44 Blood monocytes/100 leukocytes 7 % 0-12 Automated blood eosinophils/100 leukocytes 5 % 0-10 Automated blood basophils/100 leukocytes 1 % 0-10 Blood neutrophils automated count (number/volume) 7.0 10*3 1.8-7.8 Blood lymphocytes automated count (number/volume) 1.7 10*3 1.0-4.0 Blood monocytes automated count (number/volume) 0. 7 10*3 0.0-1.0 Automated eosinophil count 0.5 10*3/uL 0 .0-0.3 Automated blood basophil count (count/volume) 0.1 10*3/uL 0.0-0.1 PT panel in platelet poor plasma by coag ulation assay - 10/18/18 05:50 Prothrombin time (PT) in platelet poor plasma by coagu lation assay 15.9 s 12.2-14.7 INR in platelet poor plasma or blood by coagulation as say 1.2 0.8-1.4 Activated partial thromboplastin time (a PTT) in platelet poor plasma bycoagulation assay - 10/18/18 05:50 Activated partial thromboplastin time (a PTT) in platelet poor plasma bycoagulation assay 93 s 24-35 Whole blood basic metabolic panel - 09/30 12/19 05:50 Serum or plasma sodium measurement (moles/volume) 133 mmol/L 135-145 Serum or plasma potassium measurement (moles/volume) 4.1 mmol/L 3.6-5.0 Serum or plasma chloride measurement (moles/volume) 99 mmol/L 98-107 Carbon dioxide 26 mmol/L 21-32 Serum or plasma anion gap determination (moles/volume) 8 mmol/L 5-14 Serum or plasma urea nitrogen measurement (mass/volume ) 11 mg/dL 7-18 Serum or plasma creatinine measurement (mass/volume) 0.78 mg/dL 0.60-1.30 Serum or plasma urea nitrogen/creatinine mass ratio 14 NRG Serum or plasma creatinine measurement w ith calculation of estimated glomerular filtration rate > NRG Serum or plasma glucose measurement (mass/volume) 108 mg/dL 70-105 Serum or plasma calcium measurement (mass/volume) 8.9 mg/dL 8.5-10.1 Magnesium - 10/18/18 05:50 Magnesium 1.5 mg/dL 1.8-2.4 Serum or plasma phosphate measurement (m ass/volume) - 10/18/18 05:50 Serum or plasma phosphate measurement (mass/volume) 3.2 mg/dL 2.3-4.7 Capillary blood glucose measurement by g lucometer (mass/volume) - 10/18/18 06:00 Capillary blood glucose measurement by glucometer (mas s/volume) 113 mg/dL 70-110 Capillary blood glucose measurement by g lucometer (mass/volume) - 10/18/18 11:13 Capillary blood glucose measurement by glucometer (mas s/volume) 211 mg/dL 70-110 Capillary blood glucose measurement by g lucometer (mass/volume) - 10/18/18 16:32 Capillary blood glucose measurement by glucometer (mas s/volume) 211 mg/dL 70-110 Capillary blood glucose measurement by g lucometer (mass/volume) - 10/18/18 21:17 Capillary blood glucose measurement by glucometer (mas s/volume) 195 mg/dL 70-110 Whole blood basic metabolic panel - 10/01 03:37 Serum or plasma sodium measurement (moles/volume) 133 mmol/L 135-145 Serum or plasma potassium measurement (moles/volume) 4.7 mmol/L 3.6-5.0 Serum or plasma chloride measurement (moles/volume) 96 mmol/L 98-107 Carbon dioxide 25 mmol/L 21-32 Serum or plasma anion gap determination (moles/volume) 12 mmol/L 5-14 Serum or plasma urea nitrogen measurement (mass/volume ) 12 mg/dL 7-18 Serum or plasma creatinine measurement (mass/volume) 0.84 mg/dL 0.60-1.30 Serum or plasma urea nitrogen/creatinine mass ratio 14 NRG Serum or plasma creatinine measurement w ith calculation of estimated glomerular filtration rate > NRG Serum or plasma glucose measurement (mass/volume) 149 mg/dL 70-105 Serum or plasma calcium measurement (mass/volume) 9.2 mg/dL 8.5-10.1 Magnesium - 10/19/18 03:37 Magnesium 1.3 mg/dL 1.8-2.4 PT panel in platelet poor plasma by coag ulation assay - 10/19/18 03:37 Prothrombin time (PT) in platelet poor plasma by coagu lation assay 15.8 s 12.2-14.7 INR in platelet poor plasma or blood by coagulation as say 1.2 0.8-1.4 Activated partial thromboplastin time (a PTT) in platelet poor plasma bycoagulation assay - 10/19/18 03:37 Activated partial thromboplastin time (a PTT) in platelet poor plasma bycoagulation assay 83 s 24-35 Complete blood count (CBC) with automate d white blood cell (WBC) differential - 10/19/18 03:37 Blood leukocytes automated count (number/volume) 13.9 10*3/uL 4.3-11.0 Blood erythrocytes automated count (number/volume) 3.75 10*6/uL 4.35-5.85 Venous blood hemoglobin measurement (mass/volume) 10.5 g/dL 13.3-17.7 Blood hematocrit (volume fraction) 33 % 40-54 Automated erythrocyte mean corpuscular volume 88 [ foz_us] 80-99 Automated erythrocyte mean corpuscular h emoglobin (mass per erythrocyte) 28 pg 25-34 Automated erythrocyte mean corpuscular h emoglobin concentration measurement (mass/volume) 32 g/dL 32-36 Automated erythrocyte distribution width ratio 17. 2 % 10.0- 14.5 Automated blood platelet count (count/volume) 465 10*3/uL 130-400 Automated blood platelet mean volume measurement 9.6 [foz_us] 7.4-10.4 Automated blood neutrophils/100 leukocytes 69 % 42-75 Automated blood lymphocytes/100 leukocytes 18 % 12-44 Blood monocytes/100 leukocytes 9 % 0-12 Automated blood eosinophils/100 leukocytes 4 % 0-10 Automated blood basophils/100 leukocytes 1 % 0-10 Blood neutrophils automated count (number/volume) 9.6 10*3 1.8-7.8 Blood lymphocytes automated count (number/volume) 2.5 10*3 1.0-4.0 Blood monocytes automated count (number/volume) 1. 2 10*3 0.0-1.0 Automated eosinophil count 0.5 10*3/uL 0 .0-0.3 Automated blood basophil count (count/volume) 0.1 10*3/uL 0.0-0.1 Serum or plasma phosphate measurement (m ass/volume) - 10/19/18 03:37 Serum or plasma phosphate measurement (mass/volume) 3.8 mg/dL 2.3-4.7 Capillary blood glucose measurement by g lucometer (mass/volume) - 10/19/18 04:39 Capillary blood glucose measurement by glucometer (mas s/volume) 167 mg/dL 70-110 Capillary blood glucose measurement by g lucometer (mass/volume) - 10/19/18 12:31 Capillary blood glucose measurement by glucometer (mas s/volume) 146 mg/dL 70-110 Capillary blood glucose measurement by g lucometer (mass/volume) - 10/19/18 16:23 Capillary blood glucose measurement by glucometer (mas s/volume) 232 mg/dL 70-110 Capillary blood glucose measurement by g lucometer (mass/volume) - 10/19/18 20:51 Capillary blood glucose measurement by glucometer (mas s/volume) 181 mg/dL 70-110 Complete blood count (CBC) with automate d white blood cell (WBC) differential - 10/20/18 05:20 Blood leukocytes automated count (number/volume) 13.6 10*3/uL 4.3-11.0 Blood erythrocytes automated count (number/volume) 3.81 10*6/uL 4.35-5.85 Venous blood hemoglobin measurement (mass/volume) 10.9 g/dL 13.3-17.7 Blood hematocrit (volume fraction) 34 % 40-54 Automated erythrocyte mean corpuscular volume 88 [ foz_us] 80-99 Automated erythrocyte mean corpuscular h emoglobin (mass per erythrocyte) 29 pg 25-34 Automated erythrocyte mean corpuscular h emoglobin concentration measurement (mass/volume) 33 g/dL 32-36 Automated erythrocyte distribution width ratio 17. 2 % 10.0- 14.5 Automated blood platelet count (count/volume) 435 10*3/uL 130-400 Automated blood platelet mean volume measurement 9.6 [foz_us] 7.4-10.4 Automated blood neutrophils/100 leukocytes 68 % 42-75 Automated blood lymphocytes/100 leukocytes 18 % 12-44 Blood monocytes/100 leukocytes 10 % 0-12 Automated blood eosinophils/100 leukocytes 4 % 0-10 Automated blood basophils/100 leukocytes 1 % 0-10 Blood neutrophils automated count (number/volume) 9.3 10*3 1.8-7.8 Blood lymphocytes automated count (number/volume) 2.4 10*3 1.0-4.0 Blood monocytes automated count (number/volume) 1. 3 10*3 0.0-1.0 Automated eosinophil count 0.5 10*3/uL 0 .0-0.3 Automated blood basophil count (count/volume) 0.2 10*3/uL 0.0-0.1 Whole blood basic metabolic panel - 10/01 04/20 05:20 Serum or plasma sodium measurement (moles/volume) 131 mmol/L 135-145 Serum or plasma potassium measurement (moles/volume) 4.9 mmol/L 3.6-5.0 Serum or plasma chloride measurement (moles/volume) 97 mmol/L 98-107 Carbon dioxide 25 mmol/L 21-32 Serum or plasma anion gap determination (moles/volume) 9 mmol/L 5-14 Serum or plasma urea nitrogen measurement (mass/volume ) 13 mg/dL 7-18 Serum or plasma creatinine measurement (mass/volume) 0.81 mg/dL 0.60-1.30 Serum or plasma urea nitrogen/creatinine mass ratio 16 NRG Serum or plasma creatinine measurement w ith calculation of estimated glomerular filtration rate > NRG Serum or plasma glucose measurement (mass/volume) 125 mg/dL 70-105 Serum or plasma calcium measurement (mass/volume) 9.3 mg/dL 8.5-10.1 Serum or plasma phosphate measurement (m ass/volume) - 10/20/18 05:20 Serum or plasma phosphate measurement (mass/volume) 3.3 mg/dL 2.3-4.7 Magnesium - 10/20/18 05:20 Magnesium 1.3 mg/dL 1.8-2.4 PT panel in platelet poor plasma by coag ulation assay - 10/20/18 05:20 Prothrombin time (PT) in platelet poor plasma by coagu lation assay 14.8 s 12.2-14.7 INR in platelet poor plasma or blood by coagulation as say 1.1 0.8-1.4 Activated partial thromboplastin time (a PTT) in platelet poor plasma bycoagulation assay - 10/20/18 05:20 Activated partial thromboplastin time (a PTT) in platelet poor plasma bycoagulation assay 91 s 24-35 Manual absolute plasma cell count - 10/01 04/20 05:20 Blood monocytes/100 leukocytes 7 % NRG Manual blood segmented neutrophils/100 leukocytes 62 % NRG Manual blood lymphocytes/100 leukocytes 20 % NRG Manual eosinophils/100 leukocytes in nose 3 % NRG Blood anisocytosis detection by light microscopy S LIGHT NRG Manual blood metamyelocytes/100 leukocytes 8 % NRG Capillary blood glucose measurement by g lucometer (mass/volume) - 10/20/18 05:58 Capillary blood glucose measurement by glucometer (mas s/volume) 141 mg/dL 70-110 Capillary blood glucose measurement by g lucometer (mass/volume) - 10/20/18 10:58 Capillary blood glucose measurement by glucometer (mas s/volume) 153 mg/dL 70-110 Capillary blood glucose measurement by g lucometer (mass/volume) - 10/20/18 16:08 Capillary blood glucose measurement by glucometer (mas s/volume) 171 mg/dL 70-110 Capillary blood glucose measurement by g lucometer (mass/volume) - 10/20/18 20:40 Capillary blood glucose measurement by glucometer (mas s/volume) 168 mg/dL 70-110 Whole blood basic metabolic panel - 10/01 05/21 05:00 Serum or plasma sodium measurement (moles/volume) 133 mmol/L 135-145 Serum or plasma potassium measurement (moles/volume) 4.7 mmol/L 3.6-5.0 Serum or plasma chloride measurement (moles/volume) 99 mmol/L 98-107 Carbon dioxide 24 mmol/L 21-32 Serum or plasma anion gap determination (moles/volume) 10 mmol/L 5-14 Serum or plasma urea nitrogen measurement (mass/volume ) 15 mg/dL 7-18 Serum or plasma creatinine measurement (mass/volume) 0.82 mg/dL 0.60-1.30 Serum or plasma urea nitrogen/creatinine mass ratio 18 NRG Serum or plasma creatinine measurement w ith calculation of estimated glomerular filtration rate > NRG Serum or plasma glucose measurement (mass/volume) 87 mg/dL 70-105 Serum or plasma calcium measurement (mass/volume) 9.9 mg/dL 8.5-10.1 Magnesium - 10/21/18 05:00 Magnesium 1.6 mg/dL 1.8-2.4 Complete blood count (CBC) with automate d white blood cell (WBC) differential - 10/21/18 05:25 Blood leukocytes automated count (number/volume) 12.4 10*3/uL 4.3-11.0 Blood erythrocytes automated count (number/volume) 3.90 10*6/uL 4.35-5.85 Venous blood hemoglobin measurement (mass/volume) 11.1 g/dL 13.3-17.7 Blood hematocrit (volume fraction) 34 % 40-54 Automated erythrocyte mean corpuscular volume 88 [ foz_us] 80-99 Automated erythrocyte mean corpuscular h emoglobin (mass per erythrocyte) 28 pg 25-34 Automated erythrocyte mean corpuscular h emoglobin concentration measurement (mass/volume) 33 g/dL 32-36 Automated erythrocyte distribution width ratio 17. 4 % 10.0- 14.5 Automated blood platelet count (count/volume) 453 10*3/uL 130-400 Automated blood platelet mean volume measurement 9.6 [foz_us] 7.4-10.4 Automated blood neutrophils/100 leukocytes 66 % 42-75 Automated blood lymphocytes/100 leukocytes 18 % 12-44 Blood monocytes/100 leukocytes 12 % 0-12 Automated blood eosinophils/100 leukocytes 3 % 0-10 Automated blood basophils/100 leukocytes 1 % 0-10 Blood neutrophils automated count (number/volume) 8.2 10*3 1.8-7.8 Blood lymphocytes automated count (number/volume) 2.2 10*3 1.0-4.0 Blood monocytes automated count (number/volume) 1. 5 10*3 0.0-1.0 Automated eosinophil count 0.4 10*3/uL 0 .0-0.3 Automated blood basophil count (count/volume) 0.1 10*3/uL 0.0-0.1 PT panel in platelet poor plasma by coag ulation assay - 10/21/18 05:25 Prothrombin time (PT) in platelet poor plasma by coagu lation assay 14.7 s 12.2-14.7 INR in platelet poor plasma or blood by coagulation as say 1.1 0.8-1.4 Activated partial thromboplastin time (a PTT) in platelet poor plasma bycoagulation assay - 10/21/18 05:25 Activated partial thromboplastin time (a PTT) in platelet poor plasma bycoagulation assay 101 s 24-35 Capillary blood glucose measurement by g lucometer (mass/volume) - 10/21/18 05:31 Capillary blood glucose measurement by glucometer (mas s/volume) 91 mg/dL 70-110 Serum or plasma phosphate measurement (m ass/volume) - 10/21/18 05:55 Serum or plasma phosphate measurement (mass/volume) 3.4 mg/dL 2.3-4.7 Capillary blood glucose measurement by g lucometer (mass/volume) - 10/21/18 10:59 Capillary blood glucose measurement by glucometer (mas s/volume) 135 mg/dL 70-110 Capillary blood glucose measurement by g lucometer (mass/volume) - 10/21/18 16:11 Capillary blood glucose measurement by glucometer (mas s/volume) 152 mg/dL 70-110 Capillary blood glucose measurement by g lucometer (mass/volume) - 10/21/18 21:06 Capillary blood glucose measurement by glucometer (mas s/volume) 174 mg/dL 70-110 Complete blood count (CBC) with automate d white blood cell (WBC) differential - 10/22/18 05:40 Blood leukocytes automated count (number/volume) 13.3 10*3/uL 4.3-11.0 Blood erythrocytes automated count (number/volume) 4.02 10*6/uL 4.35-5.85 Venous blood hemoglobin measurement (mass/volume) 11.3 g/dL 13.3-17.7 Blood hematocrit (volume fraction) 35 % 40-54 Automated erythrocyte mean corpuscular volume 88 [ foz_us] 80-99 Automated erythrocyte mean corpuscular h emoglobin (mass per erythrocyte) 28 pg 25-34 Automated erythrocyte mean corpuscular h emoglobin concentration measurement (mass/volume) 32 g/dL 32-36 Automated erythrocyte distribution width ratio 17. 2 % 10.0- 14.5 Automated blood platelet count (count/volume) 453 10*3/uL 130-400 Automated blood platelet mean volume measurement 9.8 [foz_us] 7.4-10.4 Automated blood neutrophils/100 leukocytes 63 % 42-75 Automated blood lymphocytes/100 leukocytes 21 % 12-44 Blood monocytes/100 leukocytes 13 % 0-12 Automated blood eosinophils/100 leukocytes 3 % 0-10 Automated blood basophils/100 leukocytes 1 % 0-10 Blood neutrophils automated count (number/volume) 8.4 10*3 1.8-7.8 Blood lymphocytes automated count (number/volume) 2.7 10*3 1.0-4.0 Blood monocytes automated count (number/volume) 1. 7 10*3 0.0-1.0 Automated eosinophil count 0.4 10*3/uL 0 .0-0.3 Automated blood basophil count (count/volume) 0.1 10*3/uL 0.0-0.1 PT panel in platelet poor plasma by coag ulation assay - 10/22/18 05:40 Prothrombin time (PT) in platelet poor plasma by coagu lation assay 15.9 s 12.2-14.7 INR in platelet poor plasma or blood by coagulation as say 1.2 0.8-1.4 Whole blood basic metabolic panel - 10/01 06/18 05:40 Serum or plasma sodium measurement (moles/volume) 131 mmol/L 135-145 Serum or plasma potassium measurement (moles/volume) 5.0 mmol/L 3.6-5.0 Serum or plasma chloride measurement (moles/volume) 98 mmol/L 98-107 Carbon dioxide 24 mmol/L 21-32 Serum or plasma anion gap determination (moles/volume) 9 mmol/L 5-14 Serum or plasma urea nitrogen measurement (mass/volume ) 15 mg/dL 7-18 Serum or plasma creatinine measurement (mass/volume) 0.90 mg/dL 0.60-1.30 Serum or plasma urea nitrogen/creatinine mass ratio 17 NRG Serum or plasma creatinine measurement w ith calculation of estimated glomerular filtration rate > NRG Serum or plasma glucose measurement (mass/volume) 118 mg/dL 70-105 Serum or plasma calcium measurement (mass/volume) 10.2 mg/dL 8.5-10.1 Serum or plasma phosphate measurement (m ass/volume) - 10/22/18 05:40 Serum or plasma phosphate measurement (mass/volume) 3.6 mg/dL 2.3-4.7 Magnesium - 10/22/18 05:40 Magnesium 1.8 mg/dL 1.8-2.4 Activated partial thromboplastin time (a PTT) in platelet poor plasma bycoagulation assay - 10/22/18 05:40 Activated partial thromboplastin time (a PTT) in platelet poor plasma bycoagulation assay 186 s 24-35 Serum or plasma albumin measurement (mas s/volume) - 10/22/18 05:40 Serum or plasma albumin measurement (mass/volume) 2.6 g/dL 3.2-4.5 Capillary blood glucose measurement by g lucometer (mass/volume) - 10/22/18 06:07 Capillary blood glucose measurement by glucometer (mas s/volume) 118 mg/dL 70-110 Capillary blood glucose measurement by g lucometer (mass/volume) - 10/22/18 10:51 Capillary blood glucose measurement by glucometer (mas s/volume) 133 mg/dL 70-110 Activated partial thromboplastin time (a PTT) in platelet poor plasma bycoagulation assay - 10/22/18 16:10 Activated partial thromboplastin time (a PTT) in platelet poor plasma bycoagulation assay 79 s 24-35 Capillary blood glucose measurement by g lucometer (mass/volume) - 10/22/18 16:27 Capillary blood glucose measurement by glucometer (mas s/volume) 135 mg/dL 70-110 Capillary blood glucose measurement by g lucometer (mass/volume) - 10/22/18 20:43 Capillary blood glucose measurement by glucometer (mas s/volume) 185 mg/dL 70-110 Capillary blood glucose measurement by g lucometer (mass/volume) - 10/23/18 05:27 Capillary blood glucose measurement by glucometer (mas s/volume) 97 mg/dL 70-110 Complete blood count (CBC) with automate d white blood cell (WBC) differential - 10/23/18 05:36 Blood leukocytes automated count (number/volume) 11.5 10*3/uL 4.3-11.0 Blood erythrocytes automated count (number/volume) 3.62 10*6/uL 4.35-5.85 Venous blood hemoglobin measurement (mass/volume) 10.3 g/dL 13.3-17.7 Blood hematocrit (volume fraction) 32 % 40-54 Automated erythrocyte mean corpuscular volume 89 [ foz_us] 80-99 Automated erythrocyte mean corpuscular h emoglobin (mass per erythrocyte) 28 pg 25-34 Automated erythrocyte mean corpuscular h emoglobin concentration measurement (mass/volume) 32 g/dL 32-36 Automated erythrocyte distribution width ratio 17. 0 % 10.0- 14.5 Automated blood platelet count (count/volume) 376 10*3/uL 130-400 Automated blood platelet mean volume measurement 9.4 [foz_us] 7.4-10.4 Automated blood neutrophils/100 leukocytes 63 % 42-75 Automated blood lymphocytes/100 leukocytes 23 % 12-44 Blood monocytes/100 leukocytes 11 % 0-12 Automated blood eosinophils/100 leukocytes 2 % 0-10 Automated blood basophils/100 leukocytes 1 % 0-10 Blood neutrophils automated count (number/volume) 7.2 10*3 1.8-7.8 Blood lymphocytes automated count (number/volume) 2.7 10*3 1.0-4.0 Blood monocytes automated count (number/volume) 1. 2 10*3 0.0-1.0 Automated eosinophil count 0.2 10*3/uL 0 .0-0.3 Automated blood basophil count (count/volume) 0.1 10*3/uL 0.0-0.1 PT panel in platelet poor plasma by coag ulation assay - 10/23/18 05:36 Prothrombin time (PT) in platelet poor plasma by coagu lation assay 24.4 s 12.2-14.7 INR in platelet poor plasma or blood by coagulation as say 2.1 0.8-1.4 Activated partial thromboplastin time (a PTT) in platelet poor plasma bycoagulation assay - 10/23/18 05:36 Activated partial thromboplastin time (a PTT) in platelet poor plasma bycoagulation assay 109 s 24-35 Whole blood basic metabolic panel - 10/01 07/19 05:36 Serum or plasma sodium measurement (moles/volume) 134 mmol/L 135-145 Serum or plasma potassium measurement (moles/volume) 5.2 mmol/L 3.6-5.0 Serum or plasma chloride measurement (moles/volume) 100 mmol/L 98-107 Carbon dioxide 25 mmol/L 21-32 Serum or plasma anion gap determination (moles/volume) 9 mmol/L 5-14 Serum or plasma urea nitrogen measurement (mass/volume ) 14 mg/dL 7-18 Serum or plasma creatinine measurement (mass/volume) 0.86 mg/dL 0.60-1.30 Serum or plasma urea nitrogen/creatinine mass ratio 16 NRG Serum or plasma creatinine measurement w ith calculation of estimated glomerular filtration rate > NRG Serum or plasma glucose measurement (mass/volume) 88 mg/dL 70-105 Serum or plasma calcium measurement (mass/volume) 10.7 mg/dL 8.5-10.1 Serum or plasma phosphate measurement (m ass/volume) - 10/23/18 05:36 Serum or plasma phosphate measurement (mass/volume) 3.3 mg/dL 2.3-4.7 Magnesium - 10/23/18 05:36 Magnesium 2.0 mg/dL 1.8-2.4 Capillary blood glucose measurement by g lucometer (mass/volume) - 10/23/18 11:04 Capillary blood glucose measurement by glucometer (mas s/volume) 104 mg/dL 70-110 Capillary blood glucose measurement by g lucometer (mass/volume) - 10/23/18 15:58 Capillary blood glucose measurement by glucometer (mas s/volume) 137 mg/dL 70-110 Capillary blood glucose measurement by g lucometer (mass/volume) - 10/23/18 20:37 Capillary blood glucose measurement by glucometer (mas s/volume) 156 mg/dL 70-110 Complete blood count (CBC) with automate d white blood cell (WBC) differential - 10/24/18 05:40 Blood leukocytes automated count (number/volume) 10.6 10*3/uL 4.3-11.0 Blood erythrocytes automated count (number/volume) 3.53 10*6/uL 4.35-5.85 Venous blood hemoglobin measurement (mass/volume) 10.1 g/dL 13.3-17.7 Blood hematocrit (volume fraction) 32 % 40-54 Automated erythrocyte mean corpuscular volume 89 [ foz_us] 80-99 Automated erythrocyte mean corpuscular h emoglobin (mass per erythrocyte) 29 pg 25-34 Automated erythrocyte mean corpuscular h emoglobin concentration measurement (mass/volume) 32 g/dL 32-36 Automated erythrocyte distribution width ratio 17. 0 % 10.0- 14.5 Automated blood platelet count (count/volume) 362 10*3/uL 130-400 Automated blood platelet mean volume measurement 9.7 [foz_us] 7.4-10.4 Automated blood neutrophils/100 leukocytes 65 % 42-75 Automated blood lymphocytes/100 leukocytes 22 % 12-44 Blood monocytes/100 leukocytes 10 % 0-12 Automated blood eosinophils/100 leukocytes 2 % 0-10 Automated blood basophils/100 leukocytes 1 % 0-10 Blood neutrophils automated count (number/volume) 7.0 10*3 1.8-7.8 Blood lymphocytes automated count (number/volume) 2.3 10*3 1.0-4.0 Blood monocytes automated count (number/volume) 1. 1 10*3 0.0-1.0 Automated eosinophil count 0.2 10*3/uL 0 .0-0.3 Automated blood basophil count (count/volume) 0.1 10*3/uL 0.0-0.1 PT panel in platelet poor plasma by coag ulation assay - 10/24/18 05:40 Prothrombin time (PT) in platelet poor plasma by coagu lation assay 25.4 s 12.2-14.7 INR in platelet poor plasma or blood by coagulation as say 2.2 0.8-1.4 Whole blood basic metabolic panel - 10/01 08/18 05:40 Serum or plasma sodium measurement (moles/volume) 135 mmol/L 135-145 Serum or plasma potassium measurement (moles/volume) 4.5 mmol/L 3.6-5.0 Serum or plasma chloride measurement (moles/volume) 100 mmol/L 98-107 Carbon dioxide 25 mmol/L 21-32 Serum or plasma anion gap determination (moles/volume) 10 mmol/L 5-14 Serum or plasma urea nitrogen measurement (mass/volume ) 14 mg/dL 7-18 Serum or plasma creatinine measurement (mass/volume) 0.82 mg/dL 0.60-1.30 Serum or plasma urea nitrogen/creatinine mass ratio 17 NRG Serum or plasma creatinine measurement w ith calculation of estimated glomerular filtration rate > NRG Serum or plasma glucose measurement (mass/volume) 129 mg/dL 70-105 Serum or plasma calcium measurement (mass/volume) 10.9 mg/dL 8.5-10.1 Serum or plasma phosphate measurement (m ass/volume) - 10/24/18 05:40 Serum or plasma phosphate measurement (mass/volume) 2.9 mg/dL 2.3-4.7 Magnesium - 10/24/18 05:40 Magnesium 2.1 mg/dL 1.8-2.4 Capillary blood glucose measurement by g lucometer (mass/volume) - 10/24/18 06:03 Capillary blood glucose measurement by glucometer (mas s/volume) 175 mg/dL 70-110 Capillary blood glucose measurement by g lucometer (mass/volume) - 10/24/18 11:56 Capillary blood glucose measurement by glucometer (mas s/volume) 130 mg/dL 70-110 Capillary blood glucose measurement by g lucometer (mass/volume) - 10/24/18 16:17 Capillary blood glucose measurement by glucometer (mas s/volume) 138 mg/dL 70-110 Capillary blood glucose measurement by g lucometer (mass/volume) - 10/24/18 20:47 Capillary blood glucose measurement by glucometer (mas s/volume) 155 mg/dL 70-110 Capillary blood glucose measurement by g lucometer (mass/volume) - 10/25/18 05:47 Capillary blood glucose measurement by glucometer (mas s/volume) 109 mg/dL 70-110 Complete blood count (CBC) with automate d white blood cell (WBC) differential - 10/25/18 06:30 Blood leukocytes automated count (number/volume) 11.6 10*3/uL 4.3-11.0 Blood erythrocytes automated count (number/volume) 3.74 10*6/uL 4.35-5.85 Venous blood hemoglobin measurement (mass/volume) 10.7 g/dL 13.3-17.7 Blood hematocrit (volume fraction) 33 % 40-54 Automated erythrocyte mean corpuscular volume 89 [ foz_us] 80-99 Automated erythrocyte mean corpuscular h emoglobin (mass per erythrocyte) 29 pg 25-34 Automated erythrocyte mean corpuscular h emoglobin concentration measurement (mass/volume) 32 g/dL 32-36 Automated erythrocyte distribution width ratio 17. 0 % 10.0- 14.5 Automated blood platelet count (count/volume) 325 10*3/uL 130-400 Automated blood platelet mean volume measurement 9.1 [foz_us] 7.4-10.4 Automated blood neutrophils/100 leukocytes 61 % 42-75 Automated blood lymphocytes/100 leukocytes 27 % 12-44 Blood monocytes/100 leukocytes 11 % 0-12 Automated blood eosinophils/100 leukocytes 2 % 0-10 Automated blood basophils/100 leukocytes 1 % 0-10 Blood neutrophils automated count (number/volume) 7.0 10*3 1.8-7.8 Blood lymphocytes automated count (number/volume) 3.1 10*3 1.0-4.0 Blood monocytes automated count (number/volume) 1. 3 10*3 0.0-1.0 Automated eosinophil count 0.2 10*3/uL 0 .0-0.3 Automated blood basophil count (count/volume) 0.1 10*3/uL 0.0-0.1 PT panel in platelet poor plasma by coag ulation assay - 10/25/18 06:30 Prothrombin time (PT) in platelet poor plasma by coagu lation assay 23.9 s 12.2-14.7 INR in platelet poor plasma or blood by coagulation as say 2.0 0.8-1.4 Whole blood basic metabolic panel - 10/01 09/18 06:30 Serum or plasma sodium measurement (moles/volume) 135 mmol/L 135-145 Serum or plasma potassium measurement (moles/volume) 4.7 mmol/L 3.6-5.0 Serum or plasma chloride measurement (moles/volume) 99 mmol/L 98-107 Carbon dioxide 25 mmol/L 21-32 Serum or plasma anion gap determination (moles/volume) 11 mmol/L 5-14 Serum or plasma urea nitrogen measurement (mass/volume ) 15 mg/dL 7-18 Serum or plasma creatinine measurement (mass/volume) 0.86 mg/dL 0.60-1.30 Serum or plasma urea nitrogen/creatinine mass ratio 17 NRG Serum or plasma creatinine measurement w ith calculation of estimated glomerular filtration rate > NRG Serum or plasma glucose measurement (mass/volume) 99 mg/dL 70-105 Serum or plasma calcium measurement (mass/volume) 10.7 mg/dL 8.5-10.1 Serum or plasma phosphate measurement (m ass/volume) - 10/25/18 06:30 Serum or plasma phosphate measurement (mass/volume) 3.2 mg/dL 2.3-4.7 Magnesium - 10/25/18 06:30 Magnesium 2.1 mg/dL 1.8-2.4 Capillary blood glucose measurement by g lucometer (mass/volume) - 10/25/18 10:51 Capillary blood glucose measurement by glucometer (mas s/volume) 151 mg/dL 70-110 Encounters ACCT No. Visit Date/Time Discharge Status Pt. Type Provider Facility Loc./Unit Complaint [id number] 10/01/2014 10:51:56 ACT Document Registration [id number] 03/04/2019 08:00:00 00:01:00 DIS Outpatient CODEY BARILLAS MD [facility] PULM COPD [id number] 01/31/2019 10:41:00 23:59:59 CLS Outpatient KEO LANG APRN [facility] RAD DYSPNEA,HYPOXEM IA,PULMONARY EMBOLISM [id number] 10/11/2018 13:12:00 13:05:00 DIS Inpatient CODEY BARILLAS MD [facility] 4TH SWB:PNEUMONIA,CRITICAL CARE MYOPATHY,DIARRHEA, [id number] 10/10/2018 17:01:00 13:01:00 DIS Outpatient KOBI ESTEBAN DO [facility] ICU COPD EXACERBATION [id number] 09/27/2018 16:25:00 17:00:00 DIS Inpatient KOBI ESTEBAN DO [facility] IRF COPD, MYOPATHY [id number] 09/18/2018 13:37:00 16:20:00 DIS Outpatient CODEY BARILLAS MD [facility] 4TH BILATERAL PNEUMONIA [id number] 09/11/2018 08:49:00 11:00:00 DIS Inpatient CODEY BARILLAS MD [facility] 4TH SWB: PULMONARY HEMORRHA GE [id number] 08/31/2018 17:14:00 019 08:41:00 DIS Inpatient KOBI ESTEBAN DO [facility] 4TH SRAVANTHI PNA,HYPOXIA [id number] 04/12/2017 00:10:00 018 10:30:00 DIS Inpatient CODEY BARILLAS MD [facility] 4TH SEPSIS,BILAT PNEUMONIA, ACUTE RENAL FAILURE,COPD, [id number] 04/10/2017 13:47:00 018 23:59:59 CLS Outpatient CODEY BARILLAS MD [facility] RAD COUGH, PNEUMONIA,COPD [id number] 02/06/2017 13:46:00 017 23:59:59 CLS Outpatient CODEY BARILLAS MD [facility] RAD COUGH,CHEST PAIN [id number] 11/06/2016 15:24:00 017 23:59:59 CLS Outpatient FERDINAND TERRELL APRN [facility] RAD COUGH,SOA [id number] 07/19/2016 20:46:00 017 04:40:00 DIS Outpatient KEO LANG APRN [facility] SLEEP BRIDGER,EXCESSIVE D AYTIME SLEEP [id number] 06/14/2016 10:12:00 017 14:40:00 DIS Outpatient MACARIO BENJAMIN DO [facility] SDC MELANOMA ON BACK [id number] 06/08/2016 12:19:00 017 13:30:00 DIS Outpatient MACARIO BENJAMIN DO [facility] PREOP MELANOMA ON BACK [id number] 04/27/2016 19:54:00 017 06:15:00 DIS Outpatient KEO LANG APRN [facility] SLEEP BRIDGER,CENTRAL SLE EP APNEA [id number] 04/03/2016 10:09:00 017 13:11:00 DIS Emergency CHAUNCEY ROSS DO [facility] ER SOB [id number] 12/17/2015 07:25:00 016 12:50:00 DIS Outpatient SHANE STEPHENSON, SNEHA Gruber [facility] SDC LESIONS [id number] 12/08/2015 05:36:00 016 15:03:00 DIS Outpatient SHANE STEPHENSON, SNEHA Gruber [facility] PREOP LESIONS [id number] 05/11/2015 20:59:00 016 06:39:00 DIS Outpatient JUAN HESS DO [facility] SLEEP OBSTRUCTIVE SLEEP APNEA [id number] 04/30/2015 12:45:00 23:59:59 CLS Outpatient KEO LANG APRN [facility] RT DYSPNEA [id number] 04/28/2015 19:59:00 04:15:00 DIS Outpatient JUAN HESS DO [facility] SLEEP EXECESSIVE DAYTIME SLEE PINESS, HTN [id number] 04/20/2015 13:54:00 016 23:59:59 CLS Outpatient KEO LANG APRN [facility] RAD HEMOPTYSIS,DYSP NOAM [id number] 03/24/2015 10:40:00 13:45:00 DIS Inpatient SUSY STEPHENSON, SILVANO R [facility] 4TH ACUTE CHF [id number] 03/22/2015 06:50:00 17:38:00 DIS Outpatient KARLIE STEPHENSON, MORGAN V [facility] CATH ANGINA,SOB,FATIGUE,HLP [id number] 03/18/2015 10:49:00 015 23:59:59 CLS Outpatient VIET CHRISTIAN PIN DRAFTER [facility] RAD EXTERTIONAL DYS PNEA [id number] 10/01/2014 10:51:00 23:59:59 CLS Outpatient ANASTASIA GREENFIELD APRN [facility] RAD COUGH [id number] 03/20/2014 09:58:00 014 12:51:00 DIS Outpatient VERNON STEPHENSON FACC, TOSHA HUERTA CC DS [facility] CR STENT [id number] 12/30/2013 01:50:00 13:35:00 DIS Outpatient VERNON STEPHENSON FACC, TOSHA HUERTA CC DS [facility] CATH CAD ABNORMA L STRESS TEST SOB ANGINA [id number] 12/15/2013 11:51:00 014 23:59:59 CLS Outpatient VIET CHRISTIAN [facility] CARD AFIB,HTN,CAD,ST ATUS POST CABG [id number] 03/11/2013 12:40:00 013 23:59:59 CLS Outpatient LATASHA WATKINS MD [facility] RAD SOB [id number] 08/18/2019 09:20:00 P EN Preadmit KEO LANG E BIOLOGICAL ENGINEER [facility] RT COUGH,BRIDGER [id number] 07/22/2019 07:03:[address] Outpatient TOSHA JUNIOR MD, FACC, FACP CCDS [facility] ICU SSS,PACEMAKER AT DIMITRIOS [id number] 03/01/2012 07:40:00 Document Registration [id number] 02/27/2012 07:27:00 Document Registration [id number] 01/31/2012 09:18:00 Document Registration [id number] 12/18/2011 06:57:00 Document Registration [id number] 10/20/2011 09:46:00 Document Registration [id number] 10/07/2011 09:28:00 Document Registration [id number] 08/05/2010 12:35:00 Document Registration [id number] 12/21/2009 07:28:00 Document Registration
== END 2019-07-22 14:10 | disposition home or self-care (01) ==
LOC: CATH 07:03 → ICU 10:45 → CATH 14:10
PROVIDERS: ATTEND Internal Medicine Cardiovascular Disease
DX: Z45.010 Encounter for checking and testing of cardiac pacemaker pulse generator [battery] (principal); I48.20 Chronic atrial fibrillation, unspecified; I11.0 Hypertensive heart disease with heart failure; I50.33 Acute on chronic diastolic (congestive) heart failure; I25.10 Atherosclerotic heart disease of native coronary artery without angina pectoris; I26.99 Other pulmonary embolism without acute cor pulmonale; I77.9 Disorder of arteries and arterioles, unspecified; I49.5 Sick sinus syndrome; G47.33 Obstructive sleep apnea (adult) (pediatric); J20.9 Acute bronchitis, unspecified; E78.5 Hyperlipidemia, unspecified; Z85.820 Personal history of malignant melanoma of skin; Z90.49 Acquired absence of other specified parts of digestive tract; Z87.891 Personal history of nicotine dependence; Z87.19 Personal history of other diseases of the digestive system; Z88.8 Allergy status to other drugs, medicaments and biological substances; Z79.899 Other long term (current) drug therapy; Z88.2 Allergy status to sulfonamides; Z99.89 Dependence on other enabling machines and devices; Z79.82 Long term (current) use of aspirin; Z95.1 Presence of aortocoronary bypass graft; Z79.02 Long term (current) use of antithrombotics/antiplatelets; Z82.3 Family history of stroke; Z80.42 Family history of malignant neoplasm of prostate
CPT/HCPCS: 33228; 36415; 80053; 80061; 85027; 85610; 85730; 87081

== ENCOUNTER → 2019-08-13 | Outpatient (CLI) | payer MEDICARE ==
[~2019-08-13] MED LIST changes: +ASPI-586 PO; +CEFU500T63 PO; +LEVA0.6334 IH
--- NOTE | 2019-08-13 15:57 | Diagnostic Imaging Report ---
PROCEDURE: US left lower extremity venous. TECHNIQUE: Multiple real-time grayscale images were obtained over the left lower extremity in various projections. Additional duplex Doppler and color Doppler images were also obtained. INDICATION: Pain and swelling to the left lower extremity. FINDINGS: There is no evidence of a left lower extremity DVT. Left lower extremity deep venous system shows normal compressibility with normal response to augmentation and Valsalva. No fluid collection or mass is detected. IMPRESSION: No evidence of left lower extremity DVT. Dictated by: Dictated on workstation # [id number]
== END ==
LOC: RAD 15:29
PROVIDERS: ATTEND Internal Medicine Cardiovascular Disease
DX: M79.89 Other specified soft tissue disorders (principal); I48.91 Unspecified atrial fibrillation; I25.10 Atherosclerotic heart disease of native coronary artery without angina pectoris; G47.33 Obstructive sleep apnea (adult) (pediatric); Z95.1 Presence of aortocoronary bypass graft; Z95.0 Presence of cardiac pacemaker

== ENCOUNTER → 2019-08-18 | Outpatient (CLI) | payer MEDICARE ==
[~2019-08-18] MED LIST changes: +RT-ALBUTEROL SULF 2.5 MG/3 ML PRE-MIX VIAL INH ONE; +RT-ALBUTEROL SULF 2.5 MG/3 ML PRE-MIX VIAL ONE
== END ==
LOC: RT 10:01
PROVIDERS: ATTEND Nurse Practitioner Family
DX: J98.4 Other disorders of lung (principal); G47.33 Obstructive sleep apnea (adult) (pediatric); R05 Cough
CPT/HCPCS: 94060; 94726; 94729

== ENCOUNTER → 2019-10-01 | Outpatient (CLI) | payer MEDICARE ==
[~2019-10-01] MED LIST changes: -RT-ALBUTEROL SULF 2.5 MG/3 ML PRE-MIX VIAL INH ONE; -RT-ALBUTEROL SULF 2.5 MG/3 ML PRE-MIX VIAL ONE
== END ==
LOC: LABNPT 08:00
PROVIDERS: ATTEND Family Medicine
DX: R05 Cough (principal); R06.02 Shortness of breath; Z20.828 Contact with and (suspected) exposure to other viral communicable diseases
CPT/HCPCS: 87635

== ENCOUNTER → 2020-06-02 | Outpatient (CLI) | payer MEDICARE ==
[~2020-06-02] MED LIST changes: +ASPI-1238 PO; -ASPI-983 PO; +LORA-53 PO; -LORA-714 PO; -MESA10002 RC; +MESA10003 RC; -PANT40TA3 PO; +PANT40TA52 PO
== END ==
LOC: LABNPT 07:00
PROVIDERS: ATTEND Nurse Practitioner Family
DX: Z20.822 Contact with and (suspected) exposure to COVID-19 (principal)

== ENCOUNTER 2020-06-04 20:23 | Outpatient (CLI) | payer MEDICARE | END 2020-06-05 07:00 | disposition home or self-care (01) | LOC: SLEEP 20:23 | PROVIDERS: ATTEND Nurse Practitioner Family | DX: G47.33 Obstructive sleep apnea (adult) (pediatric) (principal); Z20.822 Contact with and (suspected) exposure to COVID-19 | CPT/HCPCS: 95811; U0002; 87635 ==

== ENCOUNTER → 2020-08-24 | Outpatient (CLI) | payer MEDICARE ==
--- NOTE | 2020-08-24 10:50 | Diagnostic Imaging Report ---
INDICATION: Weakness and shortness of air. TIME OF EXAM: 9:57 AM. COMPARISON: 10/23/2018. FINDINGS: Changes of median sternotomy and CABG are noted. The dual lead left subclavian cardiac pacemaker remains in place. The lungs are clear. No infiltrate or failure is identified. There is no effusion or pneumothorax. IMPRESSION: No acute cardiopulmonary process is detected. Dictated by: Dictated on workstation # [id number]
== END ==
LOC: RAD 09:25
PROVIDERS: ATTEND Nurse Practitioner Family
DX: R06.02 Shortness of breath (principal)
CPT/HCPCS: 71046

== ENCOUNTER 2020-09-09 06:00 | Outpatient (RCR) | payer MEDICARE | END 2020-09-12 | disposition home or self-care (01) | LOC: CR3 06:00 | PROVIDERS: ATTEND Family Medicine | DX: Z29.8 Encounter for other specified prophylactic measures (principal) ==

== ENCOUNTER 2020-10-01 16:14 | Outpatient (RCR) | payer MEDICARE ==
[~2020-10-01 16:14] MED LIST changes: -SULF1TAB35 PO; +SULF1TAB38 PO
== END 2020-10-13 | disposition home or self-care (01) ==
LOC: CR3 16:14
PROVIDERS: ATTEND Family Medicine
DX: Z29.8 Encounter for other specified prophylactic measures (principal)

== ENCOUNTER → 2020-11-24 | Outpatient (RCR) | payer MEDICARE | LOC: CR3 10-25 14:08 | PROVIDERS: ATTEND Family Medicine | DX: Z29.8 Encounter for other specified prophylactic measures (principal) ==

== ENCOUNTER 2020-12-13 14:03 | Outpatient (RCR) | payer MEDICARE | END 2020-12-26 | disposition home or self-care (01) | LOC: CR3 14:03 | PROVIDERS: ATTEND Family Medicine | DX: Z29.8 Encounter for other specified prophylactic measures (principal) ==

== ENCOUNTER → 2021-02-02 | Outpatient (RCR) | payer MEDICARE | END | disposition home or self-care (01) | LOC: CR3 01-03 15:20 | PROVIDERS: ATTEND Family Medicine | DX: Z29.8 Encounter for other specified prophylactic measures (principal) ==

== ENCOUNTER → 2021-03-09 | Outpatient (RCR) | payer MEDICARE ==
[~2021-03-09] MED LIST changes: +POTA-179 PO
== END | disposition home or self-care (01) ==
LOC: CR3 02-07 16:37
PROVIDERS: ATTEND Family Medicine
DX: Z29.8 Encounter for other specified prophylactic measures (principal)

== ENCOUNTER 2021-03-28 02:16 | Inpatient (IN) | payer MEDICARE ==
[~2021-03-28] VITALS: Ht 170 cm; Wt 92.6 kg
[2021-03-28 02:41] LABS: BASOPHILS % (AUTO) 0 % (0-10); EOSINOPHILS % (AUTO) 0 % (0-10); HEMATOCRIT 43 % (40-54); HEMOGLOBIN 13.9 g/dL (13.3-17.7); LYMPHOCYTES # (AUTO) 1.7 10^3/uL (1.0-4.0); LYMPHOCYTES % (AUTO) 11 % (12-44); MEAN CORPUSCULAR HEMOGLOBIN 30 pg (25-34); MEAN CORPUSCULAR HGB CONC 33 g/dL (32-36); MEAN CORPUSCULAR VOLUME 91 fL (80-99); MEAN PLATELET VOLUME 9.7 fL (9.0-12.2); MONOCYTES # (AUTO) 0.8 10^3/uL (0.0-1.0); MONOCYTES % (AUTO) 5 % (0-12); NEUTROPHILS # (AUTO) 12.9 10^3/uL (1.8-7.8); NEUTROPHILS % (AUTO) 83 % (42-75); PLATELET COUNT 185 10^3/uL (130-400); WHITE BLOOD COUNT 15.6 10^3/uL (4.3-11.0)
[2021-03-28 02:51] LABS: ALBUMIN 3.7 GM/DL (3.2-4.5); POTASSIUM 4.1 MMOL/L (3.6-5.0)
[2021-03-28 02:53] LABS: TOTAL PROTEIN 7.2 GM/DL (6.4-8.2)
[2021-03-28 02:55] LABS: BILIRUBIN,TOTAL 1.8 MG/DL (0.1-1.0); INR 2.6 (0.8-1.4); PROTHROMBIN TIME PATIENT 28.3 SEC (12.2-14.7)
[2021-03-28 02:57] LABS: CREATININE SERUM 1.38 MG/DL (0.60-1.30)
[2021-03-28 03:00] LABS: MAGNESIUM 1.6 MG/DL (1.6-2.4)
[2021-03-28 03:35] LABS: BAND NEUTROPHILS 3 %; LYMPHOCYTES % (MANUAL) 9 %; MONOCYTES % (MANUAL) 8 %; NEUTROPHILS % (MANUAL) 80 %; RBC MORPH NORMAL
[2021-03-28] MEDS ORDERED: LACTATED RINGERS 1,000 ML IV ONE (03:45)
[2021-03-28] MEDS ORDERED: CEFEPIME INJECTION 2,000 MG in NS (IVPB) 50 ML IV ONE (03:45)
[2021-03-28 03:55] LABS: CLARITY,URINE CLEAR; COLOR,URINE YELLOW; GLUCOSE, URINE (UA) NEGATIVE (NEGATIVE); KETONES,URINE 1+ (NEGATIVE); LEUKOCYTE ESTERASE ,URINE NEGATIVE (NEGATIVE); NITRITE,URINE NEGATIVE (NEGATIVE); PROTEIN,URINE 2+ (NEGATIVE)
--- NOTE | 2021-03-28 03:56 | ED General ---
General Chief Complaint: Chest Wall Stated Complaint: SOA/FEVER/CHEST PAIN Nursing Triage Note: S/O SOA, CHEST PAIN X2 DAYS. REPORTS PAIN AROUND PACEMAKER. Source of Information: Patient, Old Records Exam Limitations: No Limitations History of Present Illness Date Seen by Provider: Mar 28, 2021 Time Seen by Provider: 02:29 Initial Comments This is 80-year-old gentleman presents to the emergency room with complaints of left-sided chest pain, worse with cough, shortness of breath, fever, and hemoptysis. He reports a history of pneumonia and concerned he may have p neumonia again. He has had Covid vaccination. He is febrile on presentation and has an oxygen saturation of 90% on room air. He does not require oxygen at home. He has history of coronary artery disease and CABG. He is presently anticoagulated on warfarin. Allergies and Home Medications Allergies Coded Allergies: Sulfa (Sulfonamide Antibiotics) (Verified Allergy, Unknown, 08/31/18) montelukast (Unverified Adverse Reaction, Unknown, 06/08/16) Hallucinations per pt Patient Home Medication List Home Medication List Reviewed: Yes Acetaminophen (Acetaminophen) 500 Mg Tablet, 500 MG PO Q4H PRN for PAIN-MILD Prescribed by: CODEY BARILLAS on 10/25/18 1012 Aspirin (Aspir 81) 81 Mg Tablet.dr, 81 MG PO DAILY, (Reported) Entered as Reported by: MACARIO GEIGER on 07/22/19 0750 Cefuroxime Axetil (Cefuroxime) 500 Mg Tablet, 500 MG PO BID Prescribed by: TOSHA JUNIOR on 07/22/19 1057 Cholecalciferol (Vitamin D3) (Vitamin D3) 5,000 Unit Capsule, 5,000 UNIT PO DAILY, (Reported) Entered as Reported by: DYLAN HORTON on 09/19/18 0828 Diltiazem HCl (Diltiazem 24Hr Cd) 120 Mg Cap.er.24h, 120 MG PO DAILY Prescribed by: CODEY BARILLAS on 10/25/18 1012 Duloxetine HCl (Cymbalta) 20 Mg Cap, 20 MG PO BID Prescribed by: CODEY BARILLAS on 10/25/18 1012 Fluticasone Propionate (Fluticasone Propionate) 16 Gm [place].susp, 1 SPRAY NS BID PRN for ALLERGIES, (Reported) Entered as Reported by: SARAH CLEARY on 12/08/15 1411 Furosemide (Lasix) 20 Mg Tablet, 20 MG PO Q72H Prescribed by: CODEY BARILLAS on 10/25/18 1035 Gluc HCl/Csa/[place] Hy/Hyalur AC (Glucosamine Chondroitin Cap) 1 Each Capsule, 1 CAP PO 1800, (Reported) Entered as Reported by: DYLAN HORTON on 04/12/17 0934 Hydralazine HCl (Hydralazine HCl) 25 Mg Tablet, 25 MG PO Q6HR PRN for BLOOD PRESSURE Prescribed by: CODEY BARILLAS on 10/25/18 1012 Lactobacillus Combination No.4 (Probiotic) 1 Each Capsule, 1 CAP PO BID, (Reported) Entered as Reported by: SARAH CLEARY on 06/08/16 1245 Levalbuterol HCl (Levalbuterol HCl) 0.63 Mg/3 Ml Vial.neb, 0.63 MG IH TID, (Reported) Entered as Reported by: MACARIO GEIGER on 07/22/19 0750 Loperamide HCl (Imodium A-D) 2 Mg Tablet, 1 MG PO BID, (Reported) Entered as Reported by: DYLAN HORTON on 09/19/18 0828 Loratadine (Loratadine) 10 Mg Tablet, 10 MG PO DAILY, (Reported) Entered as Reported by: DYLAN HORTON on 09/19/18 0828 Losartan Potassium (Losartan Potassium) 50 Mg Tablet, 50 MG PO DAILY Prescribed by: CODEY BARILLAS on 10/25/18 1012 Magnesium (Magnesium) 250 Mg Tablet, 250 MG PO DAILY, (Reported) Entered as Reported by: DYLAN HORTON on 09/19/18 0849 Mesalamine (Lialda) 1.2 Gm Tablet.dr, 2 TAB PO DAILY WITH DINNER, (Reported) Entered as Reported by: PEDRO LEAL on 10/12/18 1304 Metoprolol Tartrate (Metoprolol Tartrate) 25 Mg Tablet, 25 MG PO BID Prescribed by: CODEY BARILLAS on 10/25/18 1012 Multivit-Min/FA/Lycopene/Lut (Centrum Silver Tablet) 1 Each Tablet, 1 TAB PO HS, (Reported) Entered as Reported by: DYLAN HORTON on 04/12/17 0934 Pantoprazole Sodium (Pantoprazole Sodium) 40 Mg Tablet.dr, 40 MG PO DAILY@0700 Prescribed by: CODEY BARILLAS on 10/25/18 1012 Spironolactone (Spironolactone) 25 Mg Tablet, 25 MG PO DAILY Prescribed by: CODEY BARILLAS on 10/25/18 1012 Tamsulosin HCl (Flomax) 0.4 Mg Cap, 0.4 MG PO 1800, (Reported) Entered as Reported by: DYLAN HORTON on 09/19/18 0828 Warfarin Sodium (Coumadin) 2 Mg Tablet, 2 MG PO DAILY@1800 Prescribed by: CDOEY BARILLAS on 10/25/18 1012 Review of Systems Review of Systems Constitutional: see HPI EENTM: no symptoms reported Respiratory: see HPI Cardiovascular: see HPI Gastrointestinal: no symptoms reported Genitourinary: no symptoms reported Musculoskeletal: no symptoms reported Skin: no symptoms reported Psychiatric/Neurological: No Symptoms Reported Hematologic/Lymphatic: See HPI Immunological/Allergic: no symptoms reported Past Bwqkyvi-Efhaxq-Hjmgmx Hx Patient Social History Tobacco Use?: No Substance use?: No Immunizations Up To Date Tetanus Booster (TDap): Less than 5yrs PED Vaccines UTD: Yes Seasonal Allergies Seasonal Allergies: Yes Past Medical History Surgery/Hospitalization HX: HTN, HIGH LIPIDS, BPH, AFIIB, GERD, PPM X3 Surgeries: Yes (5 VESSEL CABG, PACEMAKER X2, STENTS X2, skin ca removal) Cardiac, CABG, Coronary Stent, Gallbladder, Pacemaker Respiratory: Yes (BI-PAP) Pneumonia, Sleep Apnea, COPD Currently Using CPAP: No Currently Using BIPAP: Yes Cardiac: Yes (PACER, STENTS, BYPASS) Atrial Fibrillation, Coronary Artery Disease, High Cholesterol, Hypertension Neurological: No Reproductive Disorders: No Sexually Transmitted Disease: No HIV/AIDS: No Genitourinary: Yes Benign Prostatic Hyperpl Gastrointestinal: Yes (ULCERATIVE COLITIS) Colitis, Chronic Diarrhea, Polyps Musculoskeletal: Yes Endocrine: Yes (steroid induced diabetic) HEENT: No Loss of Vision: Denies Hearing Impairment: Denies Cancer: Yes (SKIN CANCER) Skin, Melanoma Psychosocial: No Integumentary: Yes (melanoma) Blood Disorders: No Adverse Reaction/Blood Tranf: No (N/A) Family Medical History Arthritis Cardiovascular disease Kidney disease G8 BROTHER Leukemia G8 BROTHER Multiple myeloma Prostate cancer 19 FATHER Heart Disease, Hypertension Physical Exam-Suspected Sepsis Physical Exam Vital Signs Vital Signs - First Documented Capillary Refill : Less Than 3 Seconds Blood Pressure Mean: 104 Height, Weight, BMI Height: 5'6.00" Weight: 197lbs. 8.0oz. [id number]; 26.00 BMI Method:Stated General Appearance: No Apparent Distress, WD/WN HEENT: PERRL/EOMI, Normal ENT Inspection Neck: Normal Inspection Respiratory: Lungs Clear, Normal Breath Sounds, No Accessory Muscle Use Cardiovascular: No Edema, No Murmur, Tachycardia Gastrointestinal: Normal Bowel Sounds, Non Tender, Soft Extremity: Normal Inspection, Non Tender, No Pedal Edema Neurologic/Psychiatric: Alert, Oriented x3, No Motor/Sensory Deficits, Normal Mood/Affect, hemodialysis technician II-XII Norm as Tested Skin: normal color, warm/dry Focused Exam Sepsis Stage: Sepsis Possible Source: Pulmonary Lactate Level 03/28/21 02:31: Lactic Acid Level 1.81 Time of Focused Exam: 03:50 Respiratory: Normal Breath Sounds, No Respiratory Distress Cardiovascular: Regular Rate, Rhythm, No Edema Skin: normal color, warm/dry Lactic Acid Level Within 3hrs of presentation: Admin fluids, Admin ABX, Blood cultures prior to ABX's, Focus exam, Lactate level Procedures/Interventions Date of ETT Placement: Sep 21, 2018 Time of ETT Placement: 07 Progress/Results/Core Measures Suspected Sepsis SIRS Temperature: Pulse: 108 Respiratory Rate: 20 Laboratory Tests 03/28/21 02:31: White Blood Count 15.6H Blood Pressure 150 /81 Mean: 104 03/28/21 02:31: Lactic Acid Level 1.81 Laboratory Tests 03/28/21 02:31: Creatinine 1.38H, INR Comment 2.6H, Platelet Count 185, Total Bilirubin 1.8H Results/Orders Lab Results Laboratory Tests Test 03/28/21 02:31 03/28/21 03:39 03/28/21 06:14 Range/Units White Blood Count 15.6 H 4.3-11.0 10^3/uL Red Blood Count 4.68 4.30-5.52 10^6/uL Hemoglobin 13.9 13.3-17.7 g/dL Hematocrit 43 40-54 % Mean Corpuscular Volume 91 80-99 fL Mean Corpuscular Hemoglobin 30 25-34 pg Mean Corpuscular Hemoglobin Concent 33 32-36 g/dL Red Cell Distribution Width 14.9 H 10.0-14.5 % Platelet Count 185 130-400 10^3/uL Mean Platelet Volume 9.7 9.0-12.2 fL Immature Granulocyte % (Auto) 1 % Neutrophils (%) (Auto) 83 H 42-75 % Lymphocytes (%) (Auto) 11 L 12-44 % Monocytes (%) (Auto) 5 0-12 % Eosinophils (%) (Auto) 0 0-10 % Basophils (%) (Auto) 0 0-10 % Neutrophils # (Auto) 12.9 H 1.8-7.8 10^3/uL Lymphocytes # (Auto) 1.7 1.0-4.0 10^3/uL Monocytes # (Auto) 0.8 0.0-1.0 10^3/uL Eosinophils # (Auto) 0.0 0.0-0.3 10^3/uL Basophils # (Auto) 0.0 0.0-0.1 10^3/uL Immature Granulocyte # (Auto) 0.1 0.0-0.1 10^3/uL Neutrophils % (Manual) 80 % Lymphocytes % (Manual) 9 % Monocytes % (Manual) 8 % Band Neutrophils 3 % Blood Morphology Comment NORMAL Prothrombin Time 28.3 H 12.2-14.7 SEC INR Comment 2.6 H 0.8-1.4 Activated Partial Thromboplast Time 63 H 24-35 SEC Sodium Level 137 135-145 MMOL/L Potassium Level 4.1 3.6-5.0 MMOL/L Chloride Level 103 98-107 MMOL/L Carbon Dioxide Level 21 21-32 MMOL/L Anion Gap 13 5-14 MMOL/L Blood Urea Nitrogen 13 7-18 MG/DL Creatinine 1.38 H 0.60-1.30 MG/DL Estimat Glomerular Filtration Rate 50 BUN/Creatinine Ratio 9 Glucose Level 162 H 70-105 MG/DL Lactic Acid Level 1.81 0.50-2.00 MMOL/L Calcium Level 9.0 8.5-10.1 MG/DL Corrected Calcium 9.2 8.5-10.1 MG/DL Magnesium Level 1.6 1.6-2.4 MG/DL Total Bilirubin 1.8 H 0.1-1.0 MG/DL Aspartate Amino Transf (AST/SGOT) 15 5-34 U/L Alanine Aminotransferase (ALT/SGPT) 12 0-55 U/L Alkaline Phosphatase 102 40-136 U/L Myoglobin 46.6 10.0-92.0 NG/ML Troponin I 0.110 H 0.103 H <0.028 NG/ML C-Reactive Protein High Sensitivity 25.12 H 0.00-0.50 MG/DL Total Protein 7.2 6.4-8.2 GM/DL Albumin 3.7 3.2-4.5 GM/DL Procalcitonin 0.34 H <0.10 NG/ML Influenza Type A (RT-PCR) Not Detected Not Detecte Influenza Type B (RT-PCR) Not Detected Not Detecte SARS-CoV-2 RNA (RT-PCR) Not Detected Not Detecte Urine Color YELLOW Urine Clarity CLEAR Urine pH 6.0 5-9 Urine Specific [place] 1.025 H 1.016-1.022 Urine Protein 2+ H NEGATIVE Urine Glucose (UA) NEGATIVE NEGATIVE Urine Ketones 1+ H NEGATIVE Urine Nitrite NEGATIVE NEGATIVE Urine Bilirubin 1+ H NEGATIVE Urine Urobilinogen 1.0 < = 1.0 MG/DL Urine Leukocyte Esterase NEGATIVE NEGATIVE Urine RBC (Auto) NEGATIVE NEGATIVE Urine RBC 0-2 /HPF Urine WBC NONE /HPF Urine Squamous Epithelial Cells 0-2 /HPF Urine Crystals NONE /LPF Urine Bacteria TRACE /HPF Urine Casts NONE /LPF Urine Mucus SMALL H /LPF Urine Culture Indicated CULTURE PENDING My Orders Orders - TORY KATHLEEN MD Covid 19 Inhouse Test (03/28/21 02:29) Influenza A And B By Pcr (03/28/21 02:29) Cbc With Automated Diff (03/28/21 02:33) Magnesium (03/28/21 02:33) Chest 1 View, Ap/Pa Only (03/28/21 02:33) Ekg Tracing (03/28/21 02:33) Comprehensive Metabolic Panel (03/28/21 02:33) Myoglobin Serum (03/28/21 02:33) Protime With Inr (03/28/21 02:33) Partial Thromboplastin Time (03/28/21 02:33) O2 (03/28/21 02:33) Monitor-Rhythm Ecg Trace Only (03/28/21 02:33) Lipid Panel (03/29/21 06:00) Ed Iv/Invasive Line Start (03/28/21 02:33) Troponin I Amanda (03/28/21 02:33) Manual Differential (03/28/21 02:31) Blood Culture (03/28/21 02:51) Sputum Culture (03/28/21 02:51) Urinalysis (03/28/21 02:51) Urine Culture (03/28/21 02:51) Vital Signs Adult Sepsis Patie Q15M (03/28/21 02:51) Remove Rings In Anticipation O (03/28/21 02:51) Lactic Acid Analyzer (03/28/21 02:51) Hs C Reactive Protein (03/28/21 02:51) Procalcitonin (Pct) (03/28/21 02:51) Cefepime Injection (Maxipime Injection) (03/28/21 03:45) Lactated Ringers (Lr 1000 Ml Iv Solution (03/28/21 03:45) Aspirin Chewable Tablet (Baby Aspirin Ch (03/28/21 04:00) Medications Given in ED Current Medications Medications Dose Ordered Sig/Sarika Route Start Time Stop Time Status Last Admin Dose Admin Cefepime HCl 2000 mg/Sodium Chloride 50 ml @ 100 mls/hr ONCE ONCE IV 03/28/21 03:45 03/28/21 04:14 DC 03/28/21 03:52 100 MLS/HR Lactated Ringer's 1,000 ml @ 0 mls/hr Q0M ONCE IV 03/28/21 03:45 03/28/21 03:47 DC 03/28/21 03:52 0 MLS/HR Vital Signs/I&O 03/28/21 03/28/21 03/28/21 03/28/21 02:25 02:25 04:09 04:30 Temp 38.3 37.8 37.4 Pulse 108 78 79 Resp 20 18 18 B/P (MAP) 150/81 (104) 124/63 170/78 (108) Pulse Ox 95 90 95 92 O2 Delivery Room Air Nasal Cannula Nasal Cannula Nasal Cannula O2 Flow Rate 2.00 2.00 2.00 2.00 03/28/21 04:44 O2 Delivery Nasal Cannula O2 Flow Rate 2.00 Capillary Refill : Less Than 3 Seconds Blood Pressure Mean: 104 Progress Note : Time: 08:30 Progress Note Septic work-up as well as chest pain work-up was pursued. Patient was found to have leukocytosis, elevated CRP, and new infiltrate in the left upper lung. Cefepime was administered for initial antibiotic therapy. A liter of LR was also infused. Troponin was mildly elevated. This was discussed with Dr. Styles who suggested trending the troponins. No heparin products were adm inistered due to warfarin use with elevated INR. ECG Initial ECG Impression Date: Mar 28, 2021 Initial ECG Impression Time: 02:28 Initial ECG Rate: 106 Comment Paced rhythm with multiple PVCs. Nonspecific ST changes. Diagnostic Imaging Diagonstic Imaging: Xray Plain Films/CT/US/NM/MRI: chest Comments Chest x-ray viewed by me and compared with prior. There appears to be new left upper lung infiltrate. See report below: NAME: YEHUDA LAW [facility] REC#: [id number] PT STATUS: ADM IN : 1940 PHYSICIAN: TORY KATHLEEN MD ADMIT DATE: 03/28/21 Signed Date of Exam:03/28/21 CHEST 1 VIEW, AP/PA ONLY EXAMINATION: Chest 1 view HISTORY: Chest pain. COMPARISON: 08/24/2020. FINDINGS: There is cardiomegaly with central pulmonary vascular congestion. Hazy opacities are seen throughout the left lung with prominent interstitial markings in the left upper lobe. Mildly prominent interstitial markings are seen in the right lung. No large pleural effusion. No evidence of pneumothorax. Stable left pectoral pacemaker. IMPRESSION: 1. Cardiomegaly with central pulmonary vascular congestion. 2. Hazy opacities throughout the left lung with prominent interstitial markings in both lungs may represent edema versus infection. Recommend follow-up. Dictated by: Dictated on workstation # [id number] Dict: 03/28/21 0446 Trans: 03/28/21 0452 CINDY [id number] Interpreted by: STEFF MARQUEZ DO Electronically signed by: STEFF MARQUEZ DO 03/28/21 0452 Departure Communication (Admissions) Time/Spoke to Admitting Phy: 03:45 Dr. Verdugo Time/Spoke to Consulting Phy: 03:35 Dr. Styles Impression Primary Impression: Sepsis Qualified Codes: A41.9 - Sepsis, unspecified organism Additional Impressions: Left upper lobe pneumonia Qualified Codes: J18.9 - Pneumonia, unspecified organism Elevated troponin Chest pain Qualified Codes: R07.9 - Chest pain, unspecified Hemoptysis Disposition: ADMITTED INPATIENT Condition: Stable Admissions Decision to Admit Reason: Admit from ER (General) Decision to Admit/Date: Mar 28, 2021 Time/Decision to Admit Time: 02:50 Departure-Patient Inst. Referrals: CODEY BARILLAS MD (PCP/Family) Primary Care Physician TORY KATHLEEN MD Mar 28, 2021 03:56
[2021-03-28] MEDS ORDERED: ASPIRIN 81 MG CHEW (CHILDREN'S ASA) PO ONE (04:00)
[2021-03-28 04:11] LABS: BACTERIA,URINE TRACE /HPF; BILIRUBIN,URINE 1+ (NEGATIVE); RBC,URINE 0-2 /HPF; SQUAMOUS EPITHELIAL CELL,UR 0-2 /HPF
[2021-03-28 04:30] VITALS: BP 170/78
[2021-03-28] MEDS ORDERED: morphine INJ 4 MG/ML 1 ML (VIAL/SYRINGE) IV PRN (04:45)
[2021-03-28] MEDS ORDERED: ONDANSETRON 4 MG/2 ML (SDV) Z0FRAN IV PRN (04:45)
--- NOTE | 2021-03-28 04:49 | Diagnostic Imaging Report ---
EXAMINATION: Chest 1 view HISTORY: Chest pain. COMPARISON: 08/24/2020. FINDINGS: There is cardiomegaly with central pulmonary vascular congestion. Hazy opacities are seen throughout the left lung with prominent interstitial markings in the left upper lobe. Mildly prominent interstitial markings are seen in the right lung. No large pleural effusion. No evidence of pneumothorax. Stable left pectoral pacemaker. IMPRESSION: 1. Cardiomegaly with central pulmonary vascular congestion. 2. Hazy opacities throughout the left lung with prominent interstitial markings in both lungs may represent edema versus infection. Recommend follow-up. Dictated by: Dictated on workstation # [id number]
[2021-03-28] MEDS: LACTATED RINGERS 1,000 ML IV SCH ×3 (04:59→17:36)
[2021-03-28] MEDS: ASPIRIN 81 MG CHEW (CHILDREN'S ASA) PO SCH (08:04)
[2021-03-28 08:31] VITALS: BP 132/66
[2021-03-28 08:55] VITALS: BP 132/66
[2021-03-28] MEDS ORDERED: RT-ALBUTEROL/IPRATROPIUM 3 ML (DUONEB) VIAL INH PRN (09:30)
[2021-03-28 11:32] VITALS: BP 163/77
[2021-03-28] MEDS ORDERED: PANTOPRAZOLE 40 MG (PROTONIX) TAB PO ONE (12:30)
[2021-03-28] MEDS: CEFEPIME 1,000 MG/NS 50 ML IVPB IV SCH ×4 (12:38→20:02)
[2021-03-28] MEDS ORDERED: ACETAMINOPHEN 500 MG TAB (TYLENOL) PO PRN (13:00)
[2021-03-28] MEDS ORDERED: REGADENOSON 0.4 MG/5 ML SYR (LEXISCAN) IV ONE (13:00)
--- NOTE | 2021-03-28 13:03 | Consultation-Cardiology ---
HPI-Cardiology Cardiology Consultation: Date of Consultation 03/28/2021 Date of Admission 03/27/2021 Attending Physician Jennifer Madrigal DO Admitting Physician Codey Parsons MD Consulting Physician MORGAN MEJIAS JR, MD HPI: Time Seen by a Provider: 12:57 Chief Complaint: Reason for consultation: Chest pain with abnormal electrocardiogram and abnormal troponin level. I had the pleasure of seeing Vishnu on the medical/surgical unit at [facility] in [place], [place] this afternoon. He has a history of coronary artery disease with previous coronary artery bypass surgery followed by some stent procedures, permanent atrial fibrillation, complete heart block with permanent pacemaker in place, chronic heart failure with preserved ejection fraction, mitral regurgitation, hypertension, and obesity among other less clinically significant issues. He was in his usual state of reasonably good health until when he started developing a cough productive of dark sputum. After he had been coughing for a while, he started having pleuritic left-sided chest pain and shortness of breath. He had a low-grade fever. The cough got worse over the next 24 hours and his chest discomfort became more severe. He was also having more difficulty breathing. He then came to the emergency room for further evaluation. He was diagnosed with probable pneumonia but also was found to have an abnormal electrocardiogram and elevated troponin level. As such, a cardiology consultation was requested. Today his chest discomfort has improved. He is still coughing some dark sputum. His shortness of breath seems to be improving. He was having shortness of breath at night when he would get up to urinate since this coughing started. He otherwise denies paroxysmal nocturnal dyspnea. He denies orthopnea, palpitations, lightheadedness, syncope, or ankle edema. Certain portions of this document may have been dictated utilizing voice recognition technology. Inherent to this technology, typographical and grammatical errors may exist. As much as I am diligent to identify and correct these mistakes, some errors may remain in the document. Review of Systems-Cardiology Review of Systems Other comments Review of 10 organ systems is as per the history of present illness, otherwise negative. IRU-Ipnioe-Fqfhhk Hx Patient Social History Marrital Status: Former smoker/When Quit: Dec 30, 2008 2nd Hand Smoke Exposure: No Have you traveled recently?: No Alcohol Use?: No Immunizations Up To Date Tetanus Booster (TDap): Less than 5yrs Date of Pneumonia Vaccine: August 05, 2018 Date of Influenza Vaccine: Dec 31, 2020 Past Medical History PMH As described under Assessment. Family Medical History Family History: Arthritis Cardiovascular disease Kidney disease G8 BROTHER Leukemia G8 BROTHER Multiple myeloma Prostate cancer 19 FATHER Allergies and Home Medications Allergies Coded Allergies: Sulfa (Sulfonamide Antibiotics) (Verified Allergy, Unknown, 08/31/18) montelukast (Unverified Adverse Reaction, Unknown, 06/08/16) Hallucinations per pt Patient Home Medication List Home Medication List Reviewed: Yes Acetaminophen (Acetaminophen) 500 Mg Tablet, 500 MG PO Q4H PRN for PAIN-MILD Prescribed by: CODEY PARSONS on 10/25/18 1012 Aspirin (Aspir 81) 81 Mg Tablet.dr, 81 MG PO DAILY, (Reported) Entered as Reported by: MACARIO GEIGER on 07/22/19 0750 Cefuroxime Axetil (Cefuroxime) 500 Mg Tablet, 500 MG PO BID Prescribed by: TOSHA JUNIOR on 07/22/19 1057 Cholecalciferol (Vitamin D3) (Vitamin D3) 5,000 Unit Capsule, 5,000 UNIT PO DAILY, (Reported) Entered as Reported by: DYLAN HORTON on 09/19/18 0828 Diltiazem HCl (Diltiazem 24Hr Cd) 120 Mg Cap.er.24h, 120 MG PO DAILY Prescribed by: CODEY PARSONS on 10/25/18 1012 Duloxetine HCl (Cymbalta) 20 Mg Cap, 20 MG PO BID Prescribed by: CODEY PARSONS on 10/25/18 1012 Fluticasone Propionate (Fluticasone Propionate) 16 Gm Hawkins.susp, 1 SPRAY NS BID PRN for ALLERGIES, (Reported) Entered as Reported by: SARAH CLEARY on 12/08/15 1411 Furosemide (Lasix) 20 Mg Tablet, 20 MG PO Q72H Prescribed by: CODEY PARSONS on 10/25/18 1035 Gluc HCl/Csa/Chato Hy/Hyalur AC (Glucosamine Chondroitin Cap) 1 Each Capsule, 1 CAP PO 1800, (Reported) Entered as Reported by: DYLAN HORTON on 04/12/17 0934 Hydralazine HCl (Hydralazine HCl) 25 Mg Tablet, 25 MG PO Q6HR PRN for BLOOD PRESSURE Prescribed by: CODEY PARSONS on 10/25/18 1012 Lactobacillus Combination No.4 (Probiotic) 1 Each Capsule, 1 CAP PO BID, (Reported) Entered as Reported by: SARAH CLEARY on 06/08/16 1245 Levalbuterol HCl (Levalbuterol HCl) 0.63 Mg/3 Ml Vial.neb, 0.63 MG IH TID, (Reported) Entered as Reported by: MACARIO GEIGER on 07/22/19 0750 Loperamide HCl (Imodium A-D) 2 Mg Tablet, 1 MG PO BID, (Reported) Entered as Reported by: DYLAN HORTON on 09/19/18 0828 Loratadine (Loratadine) 10 Mg Tablet, 10 MG PO DAILY, (Reported) Entered as Reported by: DYLAN HORTON on 09/19/18 0828 Losartan Potassium (Losartan Potassium) 50 Mg Tablet, 50 MG PO DAILY Prescribed by: CODEY PARSONS on 10/25/18 1012 Magnesium (Magnesium) 250 Mg Tablet, 250 MG PO DAILY, (Reported) Entered as Reported by: DYLAN HORTON on 09/19/18 0849 Mesalamine (Lialda) 1.2 Gm Tablet.dr, 2 TAB PO DAILY WITH DINNER, (Reported) Entered as Reported by: PEDRO LEAL on 10/12/18 1304 Metoprolol Tartrate (Metoprolol Tartrate) 25 Mg Tablet, 25 MG PO BID Prescribed by: CODEY PARSONS on 10/25/18 1012 Multivit-Min/FA/Lycopene/Lut (Centrum Silver Tablet) 1 Each Tablet, 1 TAB PO HS, (Reported) Entered as Reported by: DYLAN HORTON on 04/12/17 0934 Pantoprazole Sodium (Pantoprazole Sodium) 40 Mg Tablet.dr, 40 MG PO DAILY@0700 Prescribed by: CODEY PARSONS on 10/25/18 1012 Spironolactone (Spironolactone) 25 Mg Tablet, 25 MG PO DAILY Prescribed by: CODEY PARSONS on 10/25/18 1012 Tamsulosin HCl (Flomax) 0.4 Mg Cap, 0.4 MG PO 1800, (Reported) Entered as Reported by: DYLAN HORTON on 09/19/18 0828 Warfarin Sodium (Coumadin) 2 Mg Tablet, 2 MG PO DAILY@1800 Prescribed by: CODEY PARSONS on 10/25/18 1012 Exam Vital Signs Vital Signs Date Time Temp Pulse Resp B/P (MAP) Pulse Ox O2 Delivery O2 Flow Rate FiO2 03/28/21 11:32 37.8 71 22 163/77 (105) 92 Nasal Cannula 2.00 03/28/21 08:55 28 Physical Exam General: Alert. No acute distress. Well nourished and appears stated age. He is obese. Eye: Extraocular movements are intact. Conjunctivae are clear. There are no xanthelasma. HENT: Normocephalic. Atraumatic. Carotid pulsations 2/2 without bruits. Neck: Jugular venous pressure does not appear elevated. No thyromegaly appreciated. Respiratory: Lungs are clear to auscultation. Respirations are non-labored. Breath sounds are equal. Symmetrical chest wall expansion. Cardiovascular: Normal rate. Regular rhythm. No murmur. No gallop. Point of maximal impulse is not appear displaced. Good pulses equal in all extremities. No edema. Gastrointestinal: Soft. Normal bowel sounds. Skin: Skin turgor is normal. There is no pallor. Musculoskeletal: No kyphosis or scoliosis appreciated. Intercostal space between the lower lobes on the left side are tender to palpation. Neurologic: Alert and oriented to person, place, time. Cranial nerves 3-12 appear grossly intact. The patient has good motor tone strength in the upper and lower extremities bilaterally. Psychiatric: Cooperative. Appropriate mood & affect. Labs Laboratory Tests Test 03/28/21 02:31 03/28/21 03:39 03/28/21 06:14 Range/Units White Blood Count 15.6 H 4.3-11.0 10^3/uL Red Blood Count 4.68 4.30-5.52 10^6/uL Hemoglobin 13.9 13.3-17.7 g/dL Hematocrit 43 40-54 % Mean Corpuscular Volume 91 80-99 fL Mean Corpuscular Hemoglobin 30 25-34 pg Mean Corpuscular Hemoglobin Concent 33 32-36 g/dL Red Cell Distribution Width 14.9 H 10.0-14.5 % Platelet Count 185 130-400 10^3/uL Mean Platelet Volume 9.7 9.0-12.2 fL Immature Granulocyte % (Auto) 1 % Neutrophils (%) (Auto) 83 H 42-75 % Lymphocytes (%) (Auto) 11 L 12-44 % Monocytes (%) (Auto) 5 0-12 % Eosinophils (%) (Auto) 0 0-10 % Basophils (%) (Auto) 0 0-10 % Neutrophils # (Auto) 12.9 H 1.8-7.8 10^3/uL Lymphocytes # (Auto) 1.7 1.0-4.0 10^3/uL Monocytes # (Auto) 0.8 0.0-1.0 10^3/uL Eosinophils # (Auto) 0.0 0.0-0.3 10^3/uL Basophils # (Auto) 0.0 0.0-0.1 10^3/uL Immature Granulocyte # (Auto) 0.1 0.0-0.1 10^3/uL Neutrophils % (Manual) 80 % Lymphocytes % (Manual) 9 % Monocytes % (Manual) 8 % Band Neutrophils 3 % Blood Morphology Comment NORMAL Prothrombin Time 28.3 H 12.2-14.7 SEC INR Comment 2.6 H 0.8-1.4 Activated Partial Thromboplast Time 63 H 24-35 SEC Sodium Level 137 135-145 MMOL/L Potassium Level 4.1 3.6-5.0 MMOL/L Chloride Level 103 98-107 MMOL/L Carbon Dioxide Level 21 21-32 MMOL/L Anion Gap 13 5-14 MMOL/L Blood Urea Nitrogen 13 7-18 MG/DL Creatinine 1.38 H 0.60-1.30 MG/DL Estimat Glomerular Filtration Rate 50 BUN/Creatinine Ratio 9 Glucose Level 162 H 70-105 MG/DL Lactic Acid Level 1.81 0.50-2.00 MMOL/L Calcium Level 9.0 8.5-10.1 MG/DL Corrected Calcium 9.2 8.5-10.1 MG/DL Magnesium Level 1.6 1.6-2.4 MG/DL Total Bilirubin 1.8 H 0.1-1.0 MG/DL Aspartate Amino Transf (AST/SGOT) 15 5-34 U/L Alanine Aminotransferase (ALT/SGPT) 12 0-55 U/L Alkaline Phosphatase 102 40-136 U/L Myoglobin 46.6 10.0-92.0 NG/ML Troponin I 0.110 H 0.103 H <0.028 NG/ML C-Reactive Protein High Sensitivity 25.12 H 0.00-0.50 MG/DL Total Protein 7.2 6.4-8.2 GM/DL Albumin 3.7 3.2-4.5 GM/DL Procalcitonin 0.34 H <0.10 NG/ML Influenza Type A (RT-PCR) Not Detected Not Detecte Influenza Type B (RT-PCR) Not Detected Not Detecte SARS-CoV-2 RNA (RT-PCR) Not Detected Not Detecte Urine Color YELLOW Urine Clarity CLEAR Urine pH 6.0 5-9 Urine Specific [place] 1.025 H 1.016-1.022 Urine Protein 2+ H NEGATIVE Urine Glucose (UA) NEGATIVE NEGATIVE Urine Ketones 1+ H NEGATIVE Urine Nitrite NEGATIVE NEGATIVE Urine Bilirubin 1+ H NEGATIVE Urine Urobilinogen 1.0 < = 1.0 MG/DL Urine Leukocyte Esterase NEGATIVE NEGATIVE Urine RBC (Auto) NEGATIVE NEGATIVE Urine RBC 0-2 /HPF Urine WBC NONE /HPF Urine Squamous Epithelial Cells 0-2 /HPF Urine Crystals NONE /LPF Urine Bacteria TRACE /HPF Urine Casts NONE /LPF Urine Mucus SMALL H /LPF Urine Culture Indicated CULTURE PENDING ECG Impression ECG Comment Electrocardiogram obtained in the emergency room on 03/27/2021 shows atrial fibrillation with multiple premature ventricular complexes versus aberrancy and diffuse ST-T wave changes possibly due to ischemia. Diagnosis/Problems Diagnosis/Problems (1) Coronary artery disease with unstable angina pectoris Assessment & Plan: I suspect his chest discomfort may be related to his pneumonia and coughing. However, he does have a marginally elevated troponin level and a known history of coronary artery disease. As such, unstable angina cannot be completely excluded. I recommend further evaluation with a nuclear stress test which I will plan on performing tomorrow. In the interim, he should continue on aspirin, diltiazem, and metoprolol. A lipid panel has been ordered. (2) Chronic heart failure with preserved ejection fraction (HFpEF) Assessment & Plan: I suspect the majority of his present shortness of breath may be related to pneumonia. I recommend resuming his outpatient medical therapy. (3) Elevated troponin Status: Acute Assessment & Plan: I suspect he may have had a type II non-ST elevation myocardial infarction related to the pneumonia. However, in light of his known coronary artery disease, we will proceed with a stress test as above. (4) Abnormal ECG Assessment & Plan: He has intermittent ventricular pacing for many many years. This can cause secondary repolarization abnormalities when the patient is not ventricular pacing. I suspect that is what we are seeing on his electrocardiogram from admission. However, given his history, we will proceed with a stress test tomorrow as outlined above. (5) Permanent atrial fibrillation Assessment & Plan: He has been on warfarin for stroke prophylaxis. He reportedly has complete heart block although did have some accelerated rhythms yesterday. He is on beta-sita and diltiazem for rate control. Given his advanced age, 1 might actually consider stopping his aspirin and just maintaining him on warfarin to help reduce the risk of hemorrhagic side effects. Furthermore, 1 might also consider changing him for to a DOAC which have better safety profiles than warfarin and also are probably more effective. (6) Mitral regurgitation Assessment & Plan: His most recent echocardiogram from 2019 showed mild to moderate mitral regurgitation. A follow-up echocardiogram done earlier today is pending. (7) Pulmonary hypertension Assessment & Plan: This has been in a mild to moderate range in the past. I suspect this may be related to his chronic heart failure and obstructive sleep apnea. (8) Primary hypertension Assessment & Plan: Resume outpatient antihypertensive medication. MORGAN MEJIAS JR, MD Mar 28, 2021 13:03
[2021-03-28] MEDS: RT-ALBUTEROL/IPRATROPIUM 3 ML (DUONEB) VIAL INH SCH ×2 (15:28→20:59)
[2021-03-28 16:00] VITALS: BP 130/80
[2021-03-28] MEDS ORDERED: FURO20TA4 PO (16:15)
[2021-03-28] MEDS ORDERED: ASPI-1238 PO (16:15)
[2021-03-28] MEDS ORDERED: PANT40TA52 PO (16:15)
[2021-03-28] MEDS ORDERED: CETI10TA17 PO (16:15)
[2021-03-28] MEDS ORDERED: DULO20CA19 PO (16:15)
[2021-03-28] MEDS ORDERED: MESA1.2T3 PO (16:15)
[2021-03-28] MEDS ORDERED: METO-333 PO (16:15)
[2021-03-28] MEDS ORDERED: TMSL.4C PO (16:15)
[2021-03-28] MEDS ORDERED: GLUC100016 PO (16:15)
[2021-03-28] MEDS ORDERED: LOSA50TA63 PO (16:15)
[2021-03-28] MEDS ORDERED: ASCO500T17 PO (16:15)
[2021-03-28] MEDS ORDERED: WARF4TAB3 PO (16:15)
[2021-03-28] MEDS ORDERED: ACET-2267 PO (16:15)
[2021-03-28] MEDS ORDERED: FLUT1AER INH (16:15)
[2021-03-28] MEDS ORDERED: WARF3TAB56 PO (16:15)
[2021-03-28] MEDS ORDERED: DILT-27 PO (16:15)
[2021-03-28] MEDS ORDERED: CHOL500050 PO (16:15)
[2021-03-28] MEDS ORDERED: MESALAMINE 2.4 GM PO SCH (17:30)
--- NOTE | 2021-03-28 17:35 | History & Physical ---
History of Present Illness History of Present Illness Reason for visit/HPI This is a 80 year old male with a history of CAD and chronic atrial fibrillation who is on coumadin therapy. He presented to the emergency room with sudden onset of blood tinged cough and left sided chest pain. He was found to have pneumonia with sepsis as well as elevated troponin-I. He will be admitted for IV antibiotics and cardiology consult. Date of Admission Mar 28, 2021 at 03:59 Date Seen by a Provider: Mar 28, 2021 Time Seen by a Provider: 08:40 I consulted on this patient on 03/28/21 17:29 Attending Physician Joellen Madrigal DO Admitting Physician Codey Parsons MD Consult Allergies and Home Medications Allergies Coded Allergies: Sulfa (Sulfonamide Antibiotics) (Verified Allergy, Unknown, 08/31/18) montelukast (Unverified Adverse Reaction, Unknown, 06/08/16) Hallucinations per pt Patient Home Medication List Home Medication List Reviewed: Yes Acetaminophen (Tylenol Extra Strength) 500 Mg Tablet, 500-1,000 MG PO Q8H PRN for PAIN-MILD (1-4) OR TEMPATURE, (Reported) Entered as Reported by: DAYANNA CARSON on 03/28/211614 Last Action: Reviewed Ascorbic Acid (Vitamin C) 500 Mg Tablet, 500 MG PO HS, (Reported) Entered as Reported by: DAYANNA CARSON on 03/28/211614 Last Action: Reviewed Aspirin (Aspirin EC) 81 Mg Tablet.dr, 81 MG PO Q48H, (Reported) Entered as Reported by: DAYANNA CARSON on 03/28/211614 Last Action: Reviewed Cetirizine HCl (Cetirizine HCl) 10 Mg Tablet, 10 MG PO 1200, (Reported) Entered as Reported by: DAYANNA CARSON on 03/28/211614 Last Action: Reviewed Cholecalciferol (Vitamin D3) (Vitamin D3) 125 Mcg Capsule, 125 MCG PO DAILY, (Reported) Entered as Reported by: DAYANNA CARSON on 03/28/211614 Last Action: Reviewed Diltiazem HCl (Diltiazem 24Hr ER) 120 Mg Cap.er.24h, 120 MG PO DAILY, (Reported) Entered as Reported by: DAYANNA CARSON on 03/28/211614 Last Action: Continued Duloxetine HCl (Duloxetine HCl) 20 Mg Capsule.dr, 20 MG PO Q12H, (Reported) Entered as Reported by: DAYANNA CARSON on 03/28/211614 Last Action: Continued Fluticasone Propionate (Fluticasone Propionate) 16 Gm [place].susp, 1-2 SPRAY NS DAILY PRN for CONGESTION, (Reported) Entered as Reported by: SARAH CLEARY on 12/08/15 1411 Last Action: Reviewed Fluticasone/Vilanterol (Breo Ellipta 100-25 Mcg INH) 1 Each Blst.w.dev, 1 PUFF INH DAILY, (Reported) Entered as Reported by: DAYANNA CARSON on 03/28/211614 Last Action: Continued Furosemide (Furosemide) 20 Mg Tablet, 20 MG PO Q72H, (Reported) Entered as Reported by: DAYANNA CARSON on 03/28/211614 Last Action: Reviewed Glucosamine Sulfate 2Kcl (Glucosamine) 1,000 Mg Tablet, 1,000 MG PO 1200, (Reported) Entered as Reported by: DAYANNA CARSON on 03/28/211614 Last Action: Reviewed Lactobacillus Combination No.4 (Probiotic) 1 Each Capsule, 1 EA PO HS, (Reported) Entered as Reported by: SARAH CLEARY on 06/08/16 1245 Last Action: Reviewed Loperamide HCl (Imodium A-D) 2 Mg Tablet, 1 MG PO BID, (Reported) Entered as Reported by: DYLAN HORTON on 09/19/18 0828 Last Action: Reviewed Losartan Potassium (Losartan Potassium) 50 Mg Tablet, 25 MG PO 1800 W/SUPPER, (Reported) Entered as Reported by: DAYANNA CARSON on 03/28/211614 Last Action: Continued Mesalamine (Mesalamine) 1.2 Gm Tablet.dr, 2.4 GM PO 1800 W/ DINNER, (Reported) Entered as Reported by: DAYANNA CARSON on 03/28/211614 Last Action: Converted Metoprolol Tartrate (Metoprolol Tartrate) 25 Mg Tablet, 25 MG PO BID, (Reported) Entered as Reported by: DAYANNA CARSON on 03/28/211614 Last Action: Continued Multivit-Min/FA/Lycopene/Lut (Centrum Silver Tablet) 1 Each Tablet, 1 EA PO 1200, (Reported) Entered as Reported by: DYLAN HORTON on 04/12/17 0934 Last Action: Reviewed Pantoprazole Sodium (Pantoprazole Sodium) 40 Mg Tablet.dr, 40 MG PO DAILY, (Reported) Entered as Reported by: DAYANNA CARSON on 03/28/211614 Last Action: Reviewed Tamsulosin HCl (Flomax) 0.4 Mg Cap, 0.4 MG PO 1800 W/SUPPER, (Reported) Entered as Reported by: DAYANNA CARSON on 03/28/211614 Last Action: Continued Warfarin Sodium (Warfarin Sodium) 3 Mg Tablet, 3 MG PO TU,TH,SAT W/SUPPER, (Reported) Entered as Reported by: DAYANNA CARSON on 03/28/211614 Last Action: Reviewed Warfarin Sodium (Warfarin Sodium) 4 Mg Tablet, 4 MG PO [place]EL[place],MO,WE,FR W/SUPPER, (Reported) Entered as Reported by: DAYANNA CARSON on 03/28/211614 Last Action: Reviewed Discontinued Medications Acetaminophen (Acetaminophen) 500 Mg Tablet, 500 MG PO Q4H PRN for PAIN-MILD Discontinued Reason: New Order Prescribed by: CODEY PARSONS on 10/25/18 1012 Last Action: Discontinued Cefuroxime Axetil (Cefuroxime) 500 Mg Tablet, 500 MG PO BID Discontinued Reason: No Longer Taking Prescribed by: TOSHA JUNIOR on 07/22/19 1057 Last Action: Discontinued Cholecalciferol (Vitamin D3) (Vitamin D3) 5,000 Unit Capsule, 5,000 UNIT PO DAILY, (Reported) Discontinued Reason: Prescription changed Entered as Reported by: DYLAN HORTON on 09/19/18 0828 Diltiazem HCl (Diltiazem 24Hr Cd) 120 Mg Cap.er.24h, 120 MG PO DAILY Discontinued Reason: Duplicate Order Prescribed by: CODEY PARSONS on 10/25/18 1012 Last Action: Discontinued Duloxetine HCl (Cymbalta) 20 Mg Cap, 20 MG PO BID Discontinued Reason: Duplicate Order Prescribed by: CODEY PARSONS on 10/25/18 1012 Last Action: Discontinued Furosemide (Lasix) 20 Mg Tablet, 20 MG PO Q72H Discontinued Reason: Duplicate Order Prescribed by: CODEY PARSONS on 10/25/18 1035 Last Action: Discontinued Gluc HCl/Csa/[place] Hy/Hyalur AC (Glucosamine Chondroitin Cap) 1 Each Capsule, 1 CAP PO 1800, (Reported) Discontinued Reason: Prescription changed Entered as Reported by: DYLAN HORTON on 04/12/17 0934 Hydralazine HCl (Hydralazine HCl) 25 Mg Tablet, 25 MG PO Q6HR PRN for BLOOD PRESSURE Discontinued Reason: No Longer Taking Prescribed by: CODEY PARSONS on 10/25/18 1012 Last Action: Discontinued Levalbuterol HCl (Levalbuterol HCl) 0.63 Mg/3 Ml Vial.neb, 0.63 MG IH TID, (Reported) Discontinued Reason: No Longer Taking Entered as Reported by: MACARIO GEIGER on 07/22/19 0750 Last Action: Discontinued Loratadine (Loratadine) 10 Mg Tablet, 10 MG PO DAILY, (Reported) Discontinued Reason: No Longer Taking Entered as Reported by: DYLAN HORTON on 09/19/18 0828 Last Action: Discontinued Losartan Potassium (Losartan Potassium) 50 Mg Tablet, 50 MG PO DAILY Discontinued Reason: Duplicate Order Prescribed by: CODEY PARSONS on 10/25/18 1012 Last Action: Discontinued Magnesium (Magnesium) 250 Mg Tablet, 250 MG PO DAILY, (Reported) Discontinued Reason: No Longer Taking Entered as Reported by: DYLAN HORTON on 09/19/18 0849 Last Action: Discontinued Mesalamine (Lialda) 1.2 Gm Tablet.dr, 2 TAB PO DAILY WITH DINNER, (Reported) Discontinued Reason: Duplicate Order Entered as Reported by: PEDRO LEAL on 10/12/18 1304 Last Action: Discontinued Metoprolol Tartrate (Metoprolol Tartrate) 25 Mg Tablet, 25 MG PO BID Discontinued Reason: Duplicate Order Prescribed by: CODEY PARSONS on 10/25/18 101 Last Action: Discontinued Pantoprazole Sodium (Pantoprazole Sodium) 40 Mg Tablet.dr, 40 MG PO DAILY@0700 Discontinued Reason: No Longer Taking Prescribed by: CODEY PARSONS on 10/25/18 101 Last Action: Discontinued Spironolactone (Spironolactone) 25 Mg Tablet, 25 MG PO DAILY Discontinued Reason: No Longer Taking Prescribed by: CODEY PARSONS on 10/25/18 1012 Last Action: Discontinued Tamsulosin HCl (Flomax) 0.4 Mg Cap, 0.4 MG PO 1800, (Reported) Discontinued Reason: Duplicate Order Entered as Reported by: DYLAN HORTON on 09/19/18 0828 Last Action: Discontinued Warfarin Sodium (Coumadin) 2 Mg Tablet, 2 MG PO DAILY@1800 Discontinued Reason: Duplicate Order Prescribed by: CODEY PARSONS on 10/25/18 1012 Last Action: Discontinued Past Stxdptk-Gqwuir-Vexhws Hx Patient Social History Marrital Status: Tobacco Use?: No Substance use?: No Alcohol Use?: No Immunizations Up To Date Date of Influenza Vaccine: Dec 31, 2020 PED Vaccines UTD: Yes Date of Pneumonia Vaccine: August 05, 2018 Seasonal Allergies Seasonal Allergies: Yes Current Status Advance Directives: No Communicates: Verbally Primary Language: Tuvaluan Preferred Spoken Language: Tuvaluan Is interpretation needed?: No Implanted or Applied Medical D: Pacemaker, Stents Past Medical History Surgeries: Cardiac, CABG, Coronary Stent, Gallbladder, Pacemaker Pneumonia, Sleep Apnea, COPD Currently Using CPAP: No Currently Using BIPAP: Yes Atrial Fibrillation, Coronary Artery Disease, High Cholesterol, Hypertension Sexually Transmitted Disease: No HIV/AIDS: No Benign Prostatic Hyperpl Colitis, Chronic Diarrhea, Polyps Loss of Vision: Denies Hearing Impairment: Denies Skin, Melanoma Blood Disorders: No Adverse Reaction/Blood Tranf: No (N/A) Family Medical History Arthritis Cardiovascular disease Kidney disease G8 BROTHER Leukemia G8 BROTHER Multiple myeloma Prostate cancer 19 FATHER Heart Disease, Hypertension Review of Systems Constitutional: fever, weakness EENTM: nose congestion Respiratory: cough, dyspnea on exertion, hemoptysis, short of breath Cardiovascular: chest pain Gastrointestinal: loss of appetite Genitourinary: No no symptoms reported, No see HPI, No decreased output, No discharge, No dysuria, No frequency, No hematuria, No hesitancy, No in continence, No nocturia, No pain, No other Musculoskeletal: muscle weakness Skin: No no symptoms reported, No see HPI, No change in color, No change in hair/nails, No dryness, No hx of skin cancer, No lesions, No lumps, No pruritus, No rash, No other Psychiatric/Neurological: Weakness Physical Exam Vital Signs Vital Signs - First Documented 03/28/21 08:55 FiO2 28 Capillary Refill : Less Than 3 Seconds Height, Weight, BMI Height: 5'6.00" Weight: 197lbs. 8.0oz. [id number]; 32.04 BMI Method:Stated General Appearance: No Apparent Distress HEENT: Normal ENT Inspection Neck: Supple Respiratory: Crackles, Decreased Breath Sounds Cardiovascular: Systolic Murmur, Gallop/S4, Irregularly Irregular Gastrointestinal: Normal Bowel Sounds, Non Tender, Soft Back: No CVA Tenderness Extremity: Non Tender, No Calf Tenderness, No Pedal Edema Neurologic/Psychiatric: Alert, Oriented x3 Skin: Warm/Dry Comments Laboratory Tests 03/28/21 02:31: White Blood Count 15.6H, Red Blood Count 4.68, Hemoglobin 13.9, Hematocrit 43, Mean Corpuscular Volume 91, Mean Corpuscular Hemoglobin 30, Mean Corpuscular Hemoglobin Concent 33, Red Cell Distribution Width 14.9H, Platelet Count 185, Mean Platelet Volume 9.7, Immature Granulocyte % (Auto) 1, Neutrophils (%) (Auto) 83H, Lymphocytes (%) (Auto) 11L, Monocytes (%) (Auto) 5, Eosinophils (%) (Auto) 0, Basophils (%) (Auto) 0, Neutrophils # (Auto) 12.9H, Lymphocytes # (Auto) 1.7, Monocytes # (Auto) 0.8, Eosinophils # (Auto) 0.0, Basophils # (Auto) 0.0, Immature Granulocyte # (Auto) 0.1, Neutrophils % (Manual) 80, Lymphocytes % (Manual) 9, Monocytes % (Manual) 8, Band Neutrophils 3, Blood Morphology Comment NORMAL, Prothrombin Time 28.3H, INR Comment 2.6H, Activated Partial Thromboplast Time 63H, Sodium Level 137, Potassium Level 4.1, Chloride Level 103, Carbon Dioxide Level 21, Anion Gap 13, Blood Urea Nitrogen 13, Creatinine 1.38H, Estimat Glomerular Filtration Rate 50, BUN/Creatinine Ratio 9, Glucose Level 162H, Lactic Acid Level 1.81, Calcium Level 9.0, Corrected Calcium 9.2, Magnesium Level 1.6, Total Bilirubin 1.8H, Aspartate Amino Transf (AST/SGOT) 15, Alanine Aminotransferase (ALT/SGPT) 12, Alkaline Phosphatase 102, Myoglobin 46.6, Troponin I 0.110H, C-Reactive Protein High Sensitivity 25.12H, Total Protein 7.2, Albumin 3.7, Procalcitonin 0.34H, Influenza Type A (RT-PCR) Not Detected, Influenza Type B (RT-PCR) Not Detected, SARS-CoV-2 RNA (RT-PCR) Not Detected 03/28/21 03:39: Urine Color YELLOW, Urine Clarity CLEAR, Urine pH 6.0, Urine Specific [place] 1.025H, Urine Protein 2+H, Urine Glucose (UA) NEGATIVE, Urine Ketones 1+H, Urine Nitrite NEGATIVE, Urine Bilirubin 1+H, Urine Urobilinogen 1.0, Urine Leukocyte Esterase NEGATIVE, Urine RBC (Auto) NEGATIVE, Urine RBC 0-2, Urine WBC NONE, Urine Squamous Epithelial Cells 0-2, Urine Crystals NONE, Urine Bacteria TRACE, Urine Casts NONE, Urine Mucus SMALLH, Urine Culture Indicated CULTURE PENDING 03/28/21 06:14: Troponin I 0.103H Assessment/Plan Assessment and Plan 1. Pneumonia with Sepsis--on Cefepime 2. Chronic Congestive Heart Failure--resume lasix 3. Chronic Atrial Fibrillation--INR 2.6 so will hold coumadin today and repeat PT/INR in AM 4. Hypertension--resume home meds 5. History of CAD with elevated troponin-I--cardiology consulted 6. GERD--resume protonix Admission Diagnosis Admission Status: Inpatient Order (span 2 midnights) Reason for Inpatient Admission: Will need at least 48hrs of IV abx JOELLEN MADRIGAL DO Mar 28, 2021 17:34
[2021-03-28] MEDS: TAMSULOSIN 0.4 MG (FLOMAX) CAP PO SCH (19:25)
[2021-03-28 20:00] VITALS: BP 135/63
[2021-03-28] MEDS: DULoxetine 20 MG (CYMBALTA) CAP PO SCH (20:02)
[2021-03-28] MEDS: meTOprolol TARTRATE 25 MG (LOPRESSOR) TABLET PO SCH (20:02)
[2021-03-28] MEDS: RT--FLUTICASONE/SALMETEROL 113-14 (AIRDUO RespiCLICK) IH SCH (21:02)
[2021-03-29] VITALS (7 sets, daily range): BP systolic 119–153; BP diastolic 60–83
[2021-03-29] MEDS: RT-ALBUTEROL/IPRATROPIUM 3 ML (DUONEB) VIAL INH SCH ×4 (02:41→21:42)
[2021-03-29] MEDS: CEFEPIME 1,000 MG/NS 50 ML IVPB IV SCH ×6 (04:31→21:03)
[2021-03-29 05:55] LABS: HEMATOCRIT 38 % (40-54); HEMOGLOBIN 12.4 g/dL (13.3-17.7); MEAN CORPUSCULAR HEMOGLOBIN 30 pg (25-34); MEAN CORPUSCULAR HGB CONC 33 g/dL (32-36); MEAN CORPUSCULAR VOLUME 92 fL (80-99); MEAN PLATELET VOLUME 9.9 fL (9.0-12.2); PLATELET COUNT 164 10^3/uL (130-400); WHITE BLOOD COUNT 10.1 10^3/uL (4.3-11.0)
[2021-03-29 06:10] LABS: INR 2.5 (0.8-1.4); PROTHROMBIN TIME PATIENT 27.5 SEC (12.2-14.7)
[2021-03-29 06:13] LABS: POTASSIUM 3.5 MMOL/L (3.6-5.0)
[2021-03-29 06:14] LABS: CALCIUM 8.6 MG/DL (8.5-10.1)
[2021-03-29] MEDS: CATHETER FLUSH 10 ML SYR IV PRN ×2 (07:32→09:10)
[2021-03-29] MEDS ORDERED: REGADENOSON 0.4 MG/5 ML SYR (LEXISCAN) IV ONE (08:51)
--- NOTE | 2021-03-29 09:42 | Cardiology Progress Note ---
Progress Note-Cardiology Events since last exam Date Seen by Provider: Mar 29, 2021 Time Seen by Provider: 09:36 Events since last exam I am following him due to coronary artery disease and atrial fibrillation. He continues to have chest pain at the left lower costal margin, mainly when he coughs. This is pleuritic. His cough is improving but has not resolved. He is still raising some dark sputum. His shortness of breath has improved. He denies palpitations, syncope, or ankle edema. Certain portions of this document may have been dictated utilizing voice recognition technology. Inherent to this technology, typographical and grammatical errors may exist. As much as I am diligent to identify and correct these mistakes, some errors may remain in the document. Vitals Last set of Vitals Signs Vital Signs 03/28/21 03/29/21 03/29/21 03/29/21 08:55 07:21 08:00 09:09 Temp 37.0 Pulse 74 Resp 16 B/P (MAP) 141/83 (102) Pulse Ox 95 O2 Delivery Room Air O2 Flow Rate 2.00 FiO2 28 Labs Labs Laboratory Tests 03/29/21 05:28 Exam Vital Signs Vital Signs Date Time Temp Pulse Resp B/P (MAP) Pulse Ox O2 Delivery O2 Flow Rate FiO2 03/29/21 09:09 74 16 141/83 (102) 95 Room Air 03/29/21 08:00 2.00 03/29/21 07:21 37.0 03/28/21 08:55 28 Physical Exam General: Alert. No acute distress. Eye: No xanthelasma. HENT: Normocephalic. Neck: Jugular venous pressure does not appear elevated. Respiratory: Lungs are clear to auscultation. Respirations are non-labored. Breath sounds are equal. Symmetrical chest wall expansion. Cardiovascular: Normal rate. Irregular rhythm. No murmur. No gallop. No edema. Gastrointestinal: Soft. Normal bowel sounds. Skin: Warm. Dry. Neurologic: Alert and oriented to person, place, time. Cranial nerves 3-11 grossly intact. Psychiatric: Cooperative. Appropriate mood & affect. Labs Laboratory Tests Test 03/29/21 05:28 Range/Units White Blood Count 10.1 4.3-11.0 10^3/uL Red Blood Count 4.10 L 4.30-5.52 10^6/uL Hemoglobin 12.4 L 13.3-17.7 g/dL Hematocrit 38 L 40-54 % Mean Corpuscular Volume 92 80-99 fL Mean Corpuscular Hemoglobin 30 25-34 pg Mean Corpuscular Hemoglobin Concent 33 32-36 g/dL Red Cell Distribution Width 14.8 H 10.0-14.5 % Platelet Count 164 130-400 10^3/uL Mean Platelet Volume 9.9 9.0-12.2 fL Prothrombin Time 27.5 H 12.2-14.7 SEC INR Comment 2.5 H 0.8-1.4 Sodium Level 135 135-145 MMOL/L Potassium Level 3.5 L 3.6-5.0 MMOL/L Chloride Level 104 98-107 MMOL/L Carbon Dioxide Level 20 L 21-32 MMOL/L Anion Gap 11 5-14 MMOL/L Blood Urea Nitrogen 13 7-18 MG/DL Creatinine 1.00 0.60-1.30 MG/DL Estimat Glomerular Filtration Rate 72 BUN/Creatinine Ratio 13 Glucose Level 134 H 70-105 MG/DL Calcium Level 8.6 8.5-10.1 MG/DL Triglycerides Level 91 <150 MG/DL Cholesterol Level 122 < 200 MG/DL LDL Cholesterol Direct 68 1-129 MG/DL VLDL Cholesterol 18 5-40 MG/DL HDL Cholesterol 41 40-60 MG/DL Diagnosis/Problems Diagnosis/Problems (1) Coronary artery disease with unstable angina pectoris Assessment & Plan: I suspect his chest discomfort may be related to his pneumonia and coughing. However, he does have a marginally elevated troponin level and a known history of coronary artery disease. As such, unstable angina cannot be completely excluded. His stress test has been performed and result is pending. In the interim, he should continue on aspirin, diltiazem, and metoprolol. His LDL level is at goal on no statin medication. (2) Chronic heart failure with preserved ejection fraction (HFpEF) Assessment & Plan: I suspect the majority of his present shortness of breath may be related to pneumonia. I recommend he continue his outpatient medical therapy. (3) Elevated troponin Status: Acute Assessment & Plan: I suspect he may have had a type II non-ST elevation myocardial infarction related to the pneumonia. As above, stress test is pending. (4) Abnormal ECG Assessment & Plan: He has intermittent ventricular pacing for many many years. This can cause secondary repolarization abnormalities when the patient is not ventricular pacing. I suspect that is what we are seeing on his electrocardiogram from admission. We will await the results of the stress test. (5) Permanent atrial fibrillation Assessment & Plan: He has been on warfarin for stroke prophylaxis. He reportedly has complete heart block although did have some accelerated rhythms yesterday. He is on beta-sita and diltiazem for rate control. Given his advanced age, one might actually consider stopping his aspirin and just maintaining him on warfarin to help reduce the risk of hemorrhagic side effects due to dual pathway inhibition. Furthermore, 1 might also consider changing him for to a DOAC which have better safety profiles than warfarin and also are probably more effective. I will discuss this with him after we have the results of the stress test and determine whether or not he will need a cardiac catheteri zation. (6) Mitral regurgitation Assessment & Plan: His previous echocardiogram from 2019 showed mild to moderate mitral regurgitation. However, his echocardiogram from this admission shows only trivial mitral regurgitation. This is not clinically significant. (7) Aortic regurgitation Assessment & Plan: His echocardiogram from this admission shows at least mild aortic regurgitation. This should not be causing symptoms but will need to be followed longitudinally. (8) Pulmonary hypertension Assessment & Plan: This has been in a mild to moderate range in the past. I suspect this may be related to his chronic heart failure and obstructive sleep apnea. (9) Primary hypertension Assessment & Plan: Blood pressure is intermittently elevated. If this persists, we may need to adjust his antihypertensive therapy. MORGAN MEJIAS JR, MD Mar 29, 2021 09:42
[2021-03-29] MEDS: RT--FLUTICASONE/SALMETEROL 113-14 (AIRDUO RespiCLICK) IH SCH ×2 (10:32→21:46)
[2021-03-29] MEDS: meTOprolol TARTRATE 25 MG (LOPRESSOR) TABLET PO SCH ×2 (14:12→21:03)
[2021-03-29] MEDS: dilTIAZem120 MG (CARDIZEM CD) CAP PO SCH (14:12)
[2021-03-29] MEDS: DULoxetine 20 MG (CYMBALTA) CAP PO SCH ×2 (14:12→21:03)
[2021-03-29] MEDS: LOSARTAN 25 MG (COZAAR) TAB PO SCH (14:12)
[2021-03-29] MEDS: ASPIRIN 81 MG CHEW (CHILDREN'S ASA) PO SCH (14:12)
[2021-03-29] MEDS: PANTOPRAZOLE 40 MG (PROTONIX) TAB PO SCH (14:12)
--- NOTE | 2021-03-29 16:55 | NUCLEAR STRESS TEST ---
REGADENOSON NUCLEAR STRESS Date of procedure: 03/29/2021. Primary care provider: Steffany Parsons MD Admitting physician: Jennifer Madrigal DO. INDICATION: Coronary artery disease with unstable angina. BASELINE ELECTROCARDIOGRAM: Atrial fibrillation with nonspecific intraventricular conduction delay and diffuse ST-T wave changes concerning for ischemia. STRESS TEST PROCEDURE: The patient was administered 0.4 mg of intravenous Regadenoson. The resting heart rate was 73 bpm and the peak heart rate was 97 bpm. The resting blood pressure was 141/83 mmHg and the minimum blood pressure was 116/68 mmHg. This represents a normal heart rate and a normal blood pressure response to Regadenoson. The test was stopped due to the protocol. There was no chest discomfort during the test. The patient was in atrial fibrillation with intermittent premature ventricular complexes versus aberrancy during the test. The stress electrocardiogram was indeterminate due to the baseline abnormalities. NUCLEAR PROCEDURE: The patient was administered 9.1 mCi of intravenous technetium 99m Tetrofosmin at rest for the rest images. The patient was subsequently administered 29.5 mCi of intravenous technetium 99m Tetrofosmin at peak stress for the stress images. Following an appropriate wait after each injection, imaging was obtained. The images were subsequently processed and reformatted in the usual views. Gated imaging was obtained. The image quality was adequate with a mild degree of gastrointestinal attenuation artifact. CT attenuation correction was used as a adjunct to standard imaging. Both the corrected and uncorrected images were reviewed for interpretation. NUCLEAR RESULTS: There was a small, mild intensity, reversible apical defect with a small amount of inducible ischemia with a summed stress score of 4 and a summed difference score of 4. There was normal left ventricular chamber size with an end-diastolic volume of 81 mL and an end-systolic volume of 35 mL. There was no evidence of transient ischemic dilatation. The TID ratio was 1.07. There was paradoxical septal motion consistent with a previous sternotomy. There was normal left ventricular systolic function with a calculated ejection fraction of 57%. IMPRESSION: 1. Normal heart rate and blood pressure response to regadenoson. 2. There was no chest discomfort during the test. 3. The patient was in atrial fibrillation with aberrancy versus premature ventricular complexes during the test. 4. The stress electrocardiogram was indeterminate due to the baseline abnormalities. 5. There was a small, mild intensity, reversible apical defect with a small amount of inducible ischemia with a summed stress score of 4 and a summed difference score of 4. 6. There was paradoxical septal motion consistent with the previous sternotomy. 7. There was normal left ventricular systolic function with a calculated ejection fraction of 57%. 8. This is an abnormal study although representing an overall low risk for future coronary ischemic events. Certain portions of this document may have been dictated utilizing voice recognition technology. Inherent to this technology, typographical and grammatical errors may exist. As much as I am diligent to identify and correct these mistakes, some errors may remain in the document. MORGAN MEJIAS JR, MD Mar 29, 2021 16:55
--- NOTE | 2021-03-29 17:57 | Progress Note ---
Subjective Date Seen by a Provider: Mar 29, 2021 Time Seen by a Provider: 17:51 Subjective/Events-last exam Fwup pneumonia with sepsis, chest pain with elevated troponin-I, chronic atrial fibrillation, Hypertension, Chronic CHF. Had nuclear stress test today. Still coughing up some discolored sputum. Focused Exam Lactate Level 03/28/21 02:31: Lactic Acid Level 1.81 Time of Focused Exam: 03:50 Objective Exam Vital Signs Date Time Temp Pulse Resp B/P (MAP) Pulse Ox O2 Delivery O2 Flow Rate FiO2 03/29/21 16:13 95 Nasal Cannula 2.00 03/29/21 15:58 35.9 69 20 153/68 (96) 95 Nasal Cannula 2.00 03/29/21 11:54 36.4 77 20 138/65 (89) 96 Nasal Cannula 2.00 03/29/21 10:40 Nasal Cannula 2.00 03/29/21 10:32 95 Nasal Cannula 2.00 03/29/21 09:09 74 16 141/83 (102) 95 Room Air 03/29/21 08:00 Nasal Cannula 2.00 03/29/21 07:21 37.0 74 20 136/63 (87) 96 Nasal Cannula 2.00 03/29/21 03:54 37.0 76 18 141/67 (91) 92 Nasal Cannula 2.00 03/29/21 02:41 96 Nasal Cannula 2.00 03/29/21 00:12 37.1 76 22 149/74 (99) 94 Nasal Cannula 2.00 03/28/21 21:02 93 2.00 03/28/21 20:59 93 Nasal Cannula 2.00 03/28/21 20:02 Nasal Cannula 2.00 03/28/21 20:00 36.8 73 20 135/63 (87) 93 Nasal Cannula 2.00 I & O 03/29/21 07:00 Intake Total 650 ml Output Total 1025 ml Balance -375 ml Capillary Refill : Less Than 3 Seconds General Appearance: No Apparent Distress Respiratory: Crackles, Decreased Breath Sounds Cardiovascular: Systolic Murmur, Gallop/S4, Irregularly Irregular Gastrointestinal: normal bowel sounds, non tender, soft Extremity: Non Tender, No Calf Tenderness, No Pedal Edema Neurologic/Psychiatric: Alert, Oriented x3 Skin: Warm/Dry Results Lab Laboratory Tests 03/29/21 05:28: White Blood Count 10.1, Red Blood Count 4.10L, Hemoglobin 12.4L, Hematocrit 38L, Mean Corpuscular Volume 92, Mean Corpuscular Hemoglobin 30, Mean Corpuscular Hemoglobin Concent 33, Red Cell Distribution Width 14.8H, Platelet Count 164, Mean Platelet Volume 9.9, Prothrombin Time 27.5H, INR Comment 2.5H, Sodium Level 135, Potassium Level 3.5L, Chloride Level 104, Carbon Dioxide Level 20L, Anion Gap 11, Blood Urea Nitrogen 13, Creatinine 1.00, Estimat Glomerular Filtration Rate 72, BUN/Creatinine Ratio 13, Glucose Level 134H, Calcium Level 8.6, Triglycerides Level 91, Cholesterol Level 122, LDL Cholesterol Direct 68, VLDL Cholesterol 18, HDL Cholesterol 41 Microbiology 03/28/21 Gram Stain - Final, Resulted 03/28/21 Sputum Culture - Preliminary, Resulted Usual upper respiratory evette 03/28/21 Urine Culture - Final, Complete 3 or more isolates Assessment/Plan Assessment/Plan Assess & Plan/Chief Complaint 1. Pneumonia with Sepsis--continue cefepime, WBC count improved 2. Chronic atrial fibrillation--INR 2.5, will monitor and resume coumadin tomorrow pending results 3. Hypertension--home meds restarted 4. History of CAD with Elevated Troponin-I--stress test negative so likely Type II [place], medical management 5. Chronic CHF--resume lasix and potassium tomorrow Clinical Quality Measures Admission Status Admission Dx 1. Pneumonia with Sepsis--on Cefepime 2. Chronic Congestive Heart Failure--resume lasix 3. Chronic Atrial Fibrillation--INR 2.6 so will hold coumadin today and repeat PT/INR in AM 4. Hypertension--resume home meds 5. History of CAD with elevated troponin-I--cardiology consulted 6. GERD--resume protonix JOELLEN DRAKE DO Mar 29, 2021 17:57
[2021-03-29] MEDS: TAMSULOSIN 0.4 MG (FLOMAX) CAP PO SCH (18:12)
[2021-03-30 00:02] VITALS: BP 133/73
[2021-03-30] MEDS: RT-ALBUTEROL/IPRATROPIUM 3 ML (DUONEB) VIAL INH SCH ×2 (02:35→08:28)
[2021-03-30 04:13] VITALS: BP 159/73
[2021-03-30] MEDS: CEFEPIME 1,000 MG/NS 50 ML IVPB IV SCH ×2 (05:24)
[2021-03-30 06:08] LABS: HEMATOCRIT 36 % (40-54); HEMOGLOBIN 11.7 g/dL (13.3-17.7); MEAN CORPUSCULAR HEMOGLOBIN 30 pg (25-34); MEAN CORPUSCULAR HGB CONC 33 g/dL (32-36); MEAN CORPUSCULAR VOLUME 91 fL (80-99); PLATELET COUNT 187 10^3/uL (130-400); WHITE BLOOD COUNT 8.1 10^3/uL (4.3-11.0)
[2021-03-30 06:23] LABS: INR 2.4 (0.8-1.4); PROTHROMBIN TIME PATIENT 26.9 SEC (12.2-14.7)
[2021-03-30 06:28] LABS: CALCIUM 8.7 MG/DL (8.5-10.1)
[2021-03-30 06:32] LABS: CREATININE SERUM 0.95 MG/DL (0.60-1.30)
[2021-03-30 07:27] VITALS: BP 150/70
[2021-03-30] MEDS: RT--FLUTICASONE/SALMETEROL 113-14 (AIRDUO RespiCLICK) IH SCH (08:31)
[2021-03-30] MEDS: PANTOPRAZOLE 40 MG (PROTONIX) TAB PO SCH (09:32)
[2021-03-30] MEDS: meTOprolol TARTRATE 25 MG (LOPRESSOR) TABLET PO SCH (09:32)
[2021-03-30] MEDS: ASPIRIN 81 MG CHEW (CHILDREN'S ASA) PO SCH (09:32)
[2021-03-30] MEDS: dilTIAZem120 MG (CARDIZEM CD) CAP PO SCH (09:32)
[2021-03-30] MEDS: LOSARTAN 25 MG (COZAAR) TAB PO SCH (09:32)
[2021-03-30] MEDS: DULoxetine 20 MG (CYMBALTA) CAP PO SCH (09:39)
[2021-03-30] MEDS ORDERED: CEFEPIME 1,000 MG/NS 50 ML IVPB IV SCH ×2 (10:00)
[2021-03-30] MEDS ORDERED: CEFD300C3 PO (11:02)
[2021-03-30] MEDS ORDERED: ALBU2.5V4 INH (11:02)
[2021-03-30] MEDS ORDERED: WARF3TAB56 PO (11:02)
[2021-03-30 11:22] VITALS: BP 139/67
[2021-03-30 13:27] VITALS: BP 139/67
--- NOTE | 2021-03-30 18:06 | Discharge Summary ---
Diagnosis/Chief Complaint Date of Admission Mar 28, 2021 at 03:59 Date of Discharge Mar 30, 2021 at 13:29 Discharge Date: Mar 30, 2021 Discharge Diagnosis 1. Pneumonia with Sepsis--on Cefepime, improved 2. Acute Respiratory Distress--still requiring oxygen with exertion 3. Chronic Atrial Fibrillation--INR 2.4. so will resume lower dose coumadin on DC 4. Hypertension--stable 5. History of CAD with elevated troponin-I--Type II [place] 6. GERD--stable Reason Hospital Visit This is a 80 year old male with a history of CAD and chronic atrial fibrillation who is on coumadin therapy. He presented to the emergency room with sudden onset of blood tinged cough and left sided chest pain. He was found to have pneumonia with sepsis as well as elevated troponin-I. He will be admitted for IV antibiotics and cardiology consult. Discharge Summary Hospital Course Was the Problem List Reviewed?: Yes Hospital Course This is a 80 year old male with a history of CAD and chronic atrial fibrillation who is on coumadin therapy. He presented to the emergency room with sudden onset of blood tinged cough and left sided chest pain. He was found to have pneumonia with sepsis as well as elevated troponin-I. He will be admitted on IV cefepime and on oxygen via [place]. Cardiology was consulted and he underwent a Lexiscan which showed no evidence of acute ischemia and his ECHO was stable. His coumadin was held due to an INR of 2.6 on admission with blood tinged sputum and blood tinged urine. By the time of discharge, his INR is 2.4 and his urine is clear and his sputum is much clearer--he did have some blood from his nose and feels this may have been what he coughed up. His initial WBC count was 15,600 and this is down to 8,100 on discharge. He is still requiring oxygen but only with exertion. He feels much better and is in good spirits and wants to go home. He will be discharged home with oral Cefdinir and will continue on SVNS with albuterol and will use oxygen at 2L NC with exertion. He will resume his coumadin at a lower dose of 3mg daily and repeat his PT/INR in 5 days. He will follow up with Dr. Parsons in 1 week. Labs Laboratory Tests 03/28/21 02:31: White Blood Count 15.6H, Red Cell Distribution Width 14.9H, Neutrophils (%) (Auto) 83H, Lymphocytes (%) (Auto) 11L, Neutrophils # (Auto) 12.9H, Prothrombin Time 28.3H, INR Comment 2.6H, Activated Partial Thromboplast Time 63H, Creatinine 1.38H, Glucose Level 162H, Total Bilirubin 1.8H, Troponin I 0.110H, C-Reactive Protein High Sensitivity 25.12H, Procalcitonin 0.34H 03/28/21 03:39: Urine Specific [place] 1.025H, Urine Protein 2+H, Urine Ketones 1+H, Urine Bilirubin 1+H, Urine Mucus SMALLH 03/28/21 06:14: Troponin I 0.103H 03/29/21 05:28: Red Cell Distribution Width 14.8H, Prothrombin Time 27.5H, INR Comment 2.5H, Glucose Level 134H, Red Blood Count 4.10L, Hemoglobin 12.4L, Hematocrit 38L, Potassium Level 3.5L, Carbon Dioxide Level 20L 03/30/21 05:15: Red Blood Count 3.93L, Hemoglobin 11.7L, Hematocrit 36L, Red Cell Distribution Width 14.7H, Prothrombin Time 26.9H, INR Comment 2.4H, Glucose Level 130H Procedures None. Discharge Physical Examination Allergies: Coded Allergies: Sulfa (Sulfonamide Antibiotics) (Verified Allergy, Unknown, 08/31/18) montelukast (Unverified Adverse Reaction, Unknown, 06/08/16) Hallucinations per pt Vitals & I&Os Vital Signs Date Time Temp Pulse Resp B/P (MAP) Pulse Ox O2 Delivery O2 Flow Rate FiO2 03/30/21 13:27 36.6 75 20 139/67 91 Room Air 2.00 03/30/21 08:31 2 General Appearance: Alert, Oriented X3 Respiratory: Clear to Auscultation Cardiovascular: Regular Rate Abdominal: Normal Bowel Sounds, Soft, No Tenderness Extremities: No Clubbing, No Cyanosis, No Edema Psych/Mental Status: Mental Status NL, Mood NL Discharge Home Medications Reviewed and agree with Discharge Medication list on patient's Discharge Instruction sheet Instructions to Patient/Family Please see electronic discharge instructions given to patient. JOELLEN DRAKE DO Mar 30, 2021 18:06
== END 2021-03-30 13:29 | disposition home or self-care (01) | DRG 871 ==
LOC: EDUNIT# 02:16 → ER 02:19 → 4TH 03:59
PROVIDERS: ADMIT Internal Medicine; ATTEND Family Medicine
DX: A41.9 Sepsis, unspecified organism (principal); J18.9 Pneumonia, unspecified organism; I21.A1 Myocardial infarction type 2; J44.0 Chronic obstructive pulmonary disease with (acute) lower respiratory infection; R04.2 Hemoptysis; I50.32 Chronic diastolic (congestive) heart failure; I48.21 Permanent atrial fibrillation; I11.0 Hypertensive heart disease with heart failure; Z20.822 Contact with and (suspected) exposure to COVID-19; R06.03 Acute respiratory distress; I34.0 Nonrheumatic mitral (valve) insufficiency; I27.20 Pulmonary hypertension, unspecified; I25.10 Atherosclerotic heart disease of native coronary artery without angina pectoris; K21.9 Gastro-esophageal reflux disease without esophagitis; Z88.2 Allergy status to sulfonamides; Z79.82 Long term (current) use of aspirin; Z79.01 Long term (current) use of anticoagulants; Z79.899 Other long term (current) drug therapy; Z95.1 Presence of aortocoronary bypass graft; Z95.5 Presence of coronary angioplasty implant and graft; Z95.0 Presence of cardiac pacemaker; E78.00 Pure hypercholesterolemia, unspecified; Z85.820 Personal history of malignant melanoma of skin; Z87.891 Personal history of nicotine dependence
CPT/HCPCS: 36415; 71045; 78452; 80048; 80053; 80061; 81000; 83605; 83735; 83874; 84145; 84484; 85007; 85027; 85610; 85730; 86141; 87040; 87070; 87088; 87205; 87636; 93005; 93017; 93041; 93306; 94640; 94664; 94760; 94761

== ENCOUNTER 2021-04-29 14:05 | Outpatient (RCR) | payer MEDICARE ==
[~2021-04-29 14:05] MED LIST changes: +ACET-2267 PO; +ALBU2.5V4 INH; +ASCO500T17 PO; +CHOL500050 PO; +DILT-27 PO; +DULO20CA19 PO; +FLUT1AER INH; +FURO20TA4 PO; +GLUC100016 PO; +WARF3TAB56 PO; +WARF4TAB3 PO
== END 2021-05-01 | disposition home or self-care (01) ==
LOC: CR3 14:05
PROVIDERS: ATTEND Family Medicine
DX: Z29.8 Encounter for other specified prophylactic measures (principal)

== ENCOUNTER → 2021-06-29 | Outpatient (RCR) | payer MEDICARE ==
[~2021-06-29] MED LIST changes: +FEXO-249 PO; -FEXO-46 PO; -FLUC150T2 PO; +FLUC150T41 PO; -MAGN250T2 PO; +MAGN250T31 PO
== END | disposition home or self-care (01) ==
LOC: CR3 05-09 15:24
PROVIDERS: ATTEND Family Medicine
DX: Z29.8 Encounter for other specified prophylactic measures (principal)

== ENCOUNTER 2021-07-29 14:56 | Outpatient (RCR) | payer MEDICARE ==
[~2021-07-29 14:56] MED LIST changes: -FEXO-249 PO; -FLUT16SP22 NS; +FLUT16SP22 NSEACH; +NF-ALLE180 PO
[2021-08-25] MEDS ORDERED: HYDR-3923 PO (04:34)
[2021-08-25] MEDS ORDERED: Vitamin D PO (04:39)
[2021-08-25] MEDS ORDERED: WARF4TAB3 PO (04:43)
[2021-08-25] MEDS ORDERED: WARF3TAB56 PO (04:43)
[2021-08-25] MEDS ORDERED: MUPI22OI2 TOP (11:56)
[2021-08-25] MEDS ORDERED: GLUC-219 PO (11:56)
[2021-08-27] MEDS ORDERED: CEPH500T PO (11:32)
[2021-08-27] MEDS ORDERED: AZIT250T12 PO (11:32)
[2021-08-27] MEDS ORDERED: PRED10TA22 PO (11:36)
== END 2021-08-29 | disposition home or self-care (01) ==
LOC: CR3 14:56
PROVIDERS: ATTEND Family Medicine
DX: Z29.8 Encounter for other specified prophylactic measures (principal)

== ENCOUNTER 2021-08-22 14:52 | Outpatient (RCR) | payer MEDICARE ==
[2021-08-25] MEDS ORDERED: HYDR-3923 PO (04:34)
[2021-08-25] MEDS ORDERED: Vitamin D PO (04:39)
[2021-08-25] MEDS ORDERED: WARF4TAB3 PO (04:43)
[2021-08-25] MEDS ORDERED: WARF3TAB56 PO (04:43)
[2021-08-25] MEDS ORDERED: MUPI22OI2 TOP (11:56)
[2021-08-25] MEDS ORDERED: GLUC-219 PO (11:56)
[2021-08-27] MEDS ORDERED: CEPH500T PO (11:32)
[2021-08-27] MEDS ORDERED: AZIT250T12 PO (11:32)
[2021-08-27] MEDS ORDERED: PRED10TA22 PO (11:36)
== END 2021-08-30 | disposition home or self-care (01) ==
LOC: PULM 14:52
PROVIDERS: ATTEND Family Medicine
DX: J44.9 Chronic obstructive pulmonary disease, unspecified (principal)

== ENCOUNTER 2021-08-24 20:10 | Inpatient (IN) | payer MEDICARE ==
[~2021-08-24] VITALS: Ht 172.7 cm; Wt 91.4 kg
[2021-08-24 21:10] LABS: BASOPHILS % (AUTO) 0 % (0-10); EOSINOPHILS # (AUTO) 0.1 10^3/uL (0.0-0.3); EOSINOPHILS % (AUTO) 1 % (0-10); HEMATOCRIT 37 % (40-54); LYMPHOCYTES # (AUTO) 1.8 10^3/uL (1.0-4.0); LYMPHOCYTES % (AUTO) 14 % (12-44); MEAN CORPUSCULAR HEMOGLOBIN 29 pg (25-34); MEAN CORPUSCULAR HGB CONC 33 g/dL (32-36); MEAN CORPUSCULAR VOLUME 89 fL (80-99); MEAN PLATELET VOLUME 9.6 fL (9.0-12.2); MONOCYTES # (AUTO) 1.1 10^3/uL (0.0-1.0); MONOCYTES % (AUTO) 9 % (0-12); NEUTROPHILS # (AUTO) 9.7 10^3/uL (1.8-7.8); NEUTROPHILS % (AUTO) 76 % (42-75); PLATELET COUNT 187 10^3/uL (130-400); WHITE BLOOD COUNT 12.9 10^3/uL (4.3-11.0)
[2021-08-24] MEDS ORDERED: cefTRIAXone 1 GM PRE-MIX 50 ML IV ONE (21:15)
[2021-08-24] MEDS ORDERED: NS IV 1000 ML 1,000 ML IV SCH (21:15)
[2021-08-24] MEDS ORDERED: IBUPROFEN 800 MG (MOTRIN) TAB PO ONE (21:15)
[2021-08-24] MEDS ORDERED: AZITHROMYCIN INJECTION 500 MG in NS (IVPB) 250 ML IV ONE (21:15)
[2021-08-24] MEDS ORDERED: ACETAMINOPHEN 500 MG TAB (TYLENOL) PO ONE (21:15)
[2021-08-24 21:21] LABS: ALBUMIN 3.8 GM/DL (3.2-4.5); CHLORIDE 102 MMOL/L (98-107); POTASSIUM 4.4 MMOL/L (3.6-5.0); SODIUM 136 MMOL/L (135-145)
[2021-08-24 21:22] LABS: CALCIUM 8.9 MG/DL (8.5-10.1)
[2021-08-24 21:24] LABS: GLUCOSE 133 MG/DL (70-105); TOTAL PROTEIN 6.9 GM/DL (6.4-8.2)
[2021-08-24 21:25] LABS: BILIRUBIN,TOTAL 1.2 MG/DL (0.1-1.0); CARBON DIOXIDE 21 MMOL/L (21-32); FIBRIN DEGRADATION PRODUCTS 0.36 UG/ML (0.00-0.49); INR 2.2 (0.8-1.4); PROTHROMBIN TIME PATIENT 24.9 SEC (12.2-14.7)
[2021-08-24 21:27] LABS: ALKALINE PHOSPHATASE 83 U/L (40-136); CREATININE SERUM 1.29 MG/DL (0.60-1.30); ERYTHROCYTE SEDIMENTATION RATE 24 MM/HR (0-30); GFR ESTIMATED 56
[2021-08-24 21:28] LABS: BUN/CREATININE RATIO 16
[2021-08-24 21:30] LABS: ALANINE AMINOTRANSFERASE 11 U/L (0-55)
[2021-08-24 21:31] LABS: CREATINE KINASE 39 U/L (30-200); MAGNESIUM 1.7 MG/DL (1.6-2.4)
[2021-08-24 21:38] LABS: CREATINE KINASE MB 1.2 NG/ML (<6.6)
--- NOTE | 2021-08-24 21:51 | ED Respiratory ---
General Chief Complaint: Cough/Cold/Flu Symptoms Stated Complaint: COUGH, SOB Nursing Triage Note: PT AMB TO [facility] 6 WITH C/O COUGH AND SOB THAT STARTED YESTERDAY. PT TOOK HOME BREATHING TX BEFORE COMING IN SINCE HIS O2 READ 90% AT HOME Source: patient History of Present Illness Date Seen by Provider: August 24, 2021 Time Seen by Provider: 20:48 Initial Comments PT ARRIVES VIA POV FROM HOME PT STATES "I THINK I HAVE PNEUMONIA AGAIN" STATES HE BEGAN HAVING CHILLS YESTERDAY AND FELT A LITTLE SHORT OF BREATH HAS CHECKED HIS TEMP AT HOME AND WAS 97 AND 98 DEGREES. STATES HE BEGAN COUGHING YESTERDAY WELL, COUGH IS PRODUCTIVE OF COLORED SPUTUM MIXED WITH BLOOD. PT HAS COPD AND HAS HAD PNEUMONIA WITH SEPSIS IN THE PAST AND THIS FEELS THE SAME. HAS REQUIRED INTUBATION/VENTILATOR PLACEMENT IN THE PAST FOR PNEUMONIA PT CHECKED HIS OXYGEN LEVEL AT HOME AND WAS 90%--PT WEARS BIPAP AT NIGHT, OTHERWISE DOES NOT REQUIRE HOME O2 TOOK AN ALBUTEROL NEB TREATMENT JUST PRIOR TO ARRIVAL NO CHEST PAIN NO SWEATS NO SWELLING IN LEGS/ FEET OR PAIN IN CALVES PT IS ON COUMADIN FOR ATRIAL FIBRILLATION. NO KNOWN SICK CONTACTS. PT HAS HAD COVID-19 VACCINE X 3, AND FLU VACCINE FOR THIS SEASON. 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 NO BONY PAIN TO THE LEG OR PAIN WITH WALKING NO OTHER INJURIES FROM THE INCIDENT. HAS A SCRAPE ON HIS RIGHT MORRISSEY, THAT KEPT BLEEDING, SO HE WENT TO URGENT CARE AND WAS PRESCRIBED BACTROBAN CREAM AND A DRESSING WAS PLACED ON HIS LEG. NO OTHER TREATMENT WAS DONE AT THAT TIME PT STATES HIS LAST TETANUS SHOT WAS AT LEAST "5 OR 10 YEARS AGO" PCP: DR. BARILLAS Allergies and Home Medications Allergies Coded Allergies: Sulfa (Sulfonamide Antibiotics) (Verified Allergy, Unknown, 08/31/18) montelukast (Unverified Adverse Reaction, Unknown, 06/08/16) Hallucinations per pt Patient Home Medication List Home Medication List Reviewed: Yes Acetaminophen (Tylenol Extra Strength) 500 Mg Tablet, 500-1,000 MG PO Q8H PRN for PAIN-MILD (1-4) OR TEMPATURE, (Reported) Entered as Reported by: DAYANNA CARSON on 12/27/21 1615 Last Action: Reviewed Albuterol Sulfate (Albuterol Sulfate) 2.5 Mg/3 Ml Vial.neb, 2.5 MG INH Q4H Prescribed by: JOELLEN DRAKE on 03/30/21 1102 Last Action: Reviewed Ascorbic Acid (Vitamin C) 500 Mg Tablet, 500 MG PO HS, (Reported) Entered as Reported by: DAYANNA CARSON on 03/28/211614 Last Action: Reviewed Aspirin (Aspirin EC) 81 Mg Tablet.dr, 81 MG PO Q48H, (Reported) Entered as Reported by: DAYANNA CARSON on 03/28/211614 Last Action: Reviewed Cetirizine HCl (Cetirizine HCl) 10 Mg Tablet, 10 MG PO 1200, (Reported) Entered as Reported by: DAYANNA CARSON on 03/28/211614 Last Action: Reviewed Cholecalciferol (Vitamin D3) (Vitamin D3) 125 Mcg Capsule, 125 MCG PO DAILY, (Reported) Entered as Reported by: DAYANNA CARSON on 03/28/211614 Diltiazem HCl (Diltiazem 24Hr ER) 120 Mg Cap.er.24h, 120 MG PO DAILY, (Reported) Entered as Reported by: DAYANNA CARSON on 03/28/211614 Last Action: Reviewed Duloxetine HCl (Duloxetine HCl) 20 Mg Capsule.dr, 20 MG PO Q12H, (Reported) Entered as Reported by: DAYANNA CARSON on 03/28/211614 Last Action: Reviewed Fluticasone Propionate (Fluticasone Propionate) 16 Gm [place].susp, 1-2 SPRAY NS DAILY PRN for CONGESTION, (Reported) Entered as Reported by: SARAH CLEARY on 12/08/15 141 Last Action: Reviewed Fluticasone/Vilanterol (Breo Ellipta 100-25 Mcg INH) 1 Each Blst.w.dev, 1 PUFF INH DAILY, (Reported) Entered as Reported by: DAYANNA CARSON on 03/28/211614 Last Action: Reviewed Furosemide (Furosemide) 20 Mg Tablet, 20 MG PO Q72H, (Reported) Entered as Reported by: DAYANNA CARSON on 03/28/211614 Last Action: Reviewed Glucosamine Sulfate 2Kcl (Glucosamine) 1,000 Mg Tablet, 1,000 MG PO 1200, (Reported) Entered as Reported by: DAYANNA CARSON on 03/28/211614 Last Action: Reviewed Hydralazine HCl (Hydralazine HCl) 25 Mg Tablet, 25 MG PO NEEDED PRN for BLOOD PRESSURE, (Reported) Entered as Reported by: MERCEDES SHABAZZ on 08/25/21 0434 Last Action: New Order Lactobacillus Combination No.4 (Probiotic) 1 Each Capsule, 1 EA PO HS, (Reported) Entered as Reported by: SARAH CLEARY on 06/08/16 1245 Last Action: Reviewed Loperamide HCl (Imodium A-D) 2 Mg Tablet, 1 MG PO BID, (Reported) Entered as Reported by: DYLAN HORTON on 09/19/18 0828 Last Action: Reviewed Losartan Potassium (Losartan Potassium) 50 Mg Tablet, 25 MG PO 1800 W/SUPPER, (Reported) Entered as Reported by: DAYANNA CARSON on 03/28/211614 Last Action: Reviewed Mesalamine (Mesalamine) 1.2 Gm Tablet.dr, 2.4 GM PO 1800 W/ DINNER, (Reported) Entered as Reported by: DAYANNA CARSON on 03/28/211614 Last Action: Reviewed Metoprolol Tartrate (Metoprolol Tartrate) 25 Mg Tablet, 25 MG PO BID, (Reported) Entered as Reported by: DAYANNA CARSON on 03/28/211614 Last Action: Reviewed Multivit-Min/FA/Lycopene/Lut (Centrum Silver Tablet) 1 Each Tablet, 1 EA PO 1200, (Reported) Entered as Reported by: DYLAN HORTON on 04/12/17 0934 Last Action: Reviewed Pantoprazole Sodium (Pantoprazole Sodium) 40 Mg Tablet.dr, 40 MG PO DAILY, (Re ported) Entered as Reported by: DAYANNA CARSON on 03/28/211614 Last Action: Reviewed Tamsulosin HCl (Flomax) 0.4 Mg Cap, 0.4 MG PO 1800 W/SUPPER, (Reported) Entered as Reported by: DAYANNA CARSON on 03/28/211614 Last Action: Reviewed Warfarin Sodium (Warfarin Sodium) 3 Mg Tablet, 3 MG PO DAILY Prescribed by: JOELLEN DRAKE on 03/30/21 1102 Warfarin Sodium (Warfarin Sodium) 3 Mg Tablet, 3 MG PO DAILY, (Reported) Entered as Reported by: MERCEDES SHABAZZ on 08/25/21442 Last Action: New Order Warfarin Sodium (Warfarin Sodium) 4 Mg Tablet, 4 MG PO DAILY, (Reported) Entered as Reported by: MERCEDES SHABAZZ on 08/25/21442 Last Action: New Order [Vitamin D] , 500 MG PO DAILY, (Reported) Entered as Reported by: MERCEDES SHABAZZ on 08/25/21438 Last Action: New Order Discontinued Medications Cefdinir (Cefdinir) 300 Mg Capsule, 300 MG PO BID Discontinued Reason: No Longer Taking Prescribed by: JOELLEN DRAKE on 03/30/21 1102 Last Action: Discontinued Review of Systems Review of Systems Constitutional: see HPI, chills EENTM: no symptoms reported Respiratory: see HPI, cough, hemoptysis, phlegm, short of breath, wheezing Cardiovascular: no symptoms reported; No chest pain, No edema, No palpitations; syncope Gastrointestinal: no symptoms reported Genitourinary: no symptoms reported Musculoskeletal: see HPI Skin: see HPI Psychiatric/Neurological: No Symptoms Reported Hematologic/Lymphatic: See HPI, Easy Bleeding, Easy Bruising Immunological/Allergic: no symptoms reported Past Ybdmucn-Bgmgom-Xnbipd Hx Patient Social History Tobacco Use?: Yes (FORMER SMOKER) Tobacco type used: Cigarettes Smoking Status: Former Smoker Substance use?: No Alcohol Use?: No Pt feels they are or have been: No Immunizations Up To Date Tetanus Booster (TDap): Less than 5yrs PED Vaccines UTD: Yes First/Initial COVID19 Vaccinat: 12/31/20 Second COVID19 Vaccination Terence: 02/20 COVID19 Vaccine Process Environmental Technician: SHANNA Seasonal Allergies Seasonal Allergies: Yes Past Medical History Surgery/Hospitalization HX: HTN, HIGH LIPIDS, BPH, AFIIB, GERD, PPM X3, COPD, BRIDGER PACEMAKER, STENTS, HELEN Surgeries: Yes (5 VESSEL CABG, PACEMAKER X2, STENTS X2, skin ca removal) Cardiac, CABG, Coronary Stent, Gallbladder, Pacemaker Respiratory: Yes (BI-PAP AT NIGHT; HX OF PNEUMONIA WITH VENTILATOR) Pneumonia, Sleep Apnea, COPD Currently Using CPAP: No Currently Using BIPAP: Yes Cardiac: Yes (PACER, STENTS, BYPASS; AFIB/FLUTTER; CAROTID DISEASE) Atrial Fibrillation, Coronary Artery Disease, High Cholesterol, Hypertension Neurological: No Reproductive Disorders: No Sexually Transmitted Disease: No HIV/AIDS: No Genitourinary: Yes Benign Prostatic Hyperpl Gastrointestinal: Yes (ULCERATIVE COLITIS) Colitis, Chronic Diarrhea, Polyps Musculoskeletal: Yes Arthritis Endocrine: Yes (steroid induced diabetic) HEENT: No Loss of Vision: Denies Hearing Impairment: Denies Cancer: Yes (SKIN CANCER) Skin Did You Recieve Any Treatments: Yes What Type of Treatment Did You: Surgical Intervention 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 Psychosocial: No Integumentary: Yes (melanoma) Blood Disorders: No Adverse Reaction/Blood Tranf: No (N/A) Family Medical History Arthritis Cardiovascular disease Kidney disease G8 BROTHER Leukemia G8 BROTHER Multiple myeloma Prostate cancer 19 FATHER Heart Disease, Hypertension SOCIAL HISTORY: -HISTORY OF SMOKING, QUIT YEARS AGO -DRUGS-DENIES USE -ETOH-DENIES USE PAST SURGICAL HISTORY: -09/25/2006-PACEMAKER BY DR. JUNIOR -03/30/2008-[address] DOWLING AT [facility] -10/06/2011--CARDIAC CATH BY DR. HOYOS; NO INTERVENTION -10/2011-CHOLECYSTECTOMY BY DR. HAYS -10/17/2011--PACEMAKER REPLACED BY DR. JUNIOR -03/01/2012--COLONOSCOPY BY DR. WILLAMS. DX ULCERATIVE COLITIS -12/30/2013--CARDIAC CATH WITH STENTS X [address] 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 LYNN -04/2016--REMOVAL OF BENIGN MASS ON BACK BY DR. BENJAMIN. -05/2017--COLONOSCOPY BY DR. MCKOY -09/21/2019--PACEMAKER REPLACED BY DR. JUNIOR ADDITIONAL PMH: 08/31/2018-10/31/2018-PT HAD PNEUMONIA WITH RESPIRATORY FAILURE AND PLACED ON VENTILATOR. PT THEN WENT TO [facility] FOR REHAB FROM 10/31/2018--12/01/2018 Physical Exam Vital Signs - First Documented 08/24/21 08/24/21 20:40 21:15 Temp 38.6 Pulse 77 Resp 20 B/P (MAP) 159/70 (99) Pulse Ox 96 O2 Delivery Nasal Cannula O2 Flow Rate 1.00 Capillary Refill : Height: 5'6.00" Weight: 197lbs. 8.0oz. 73.990165ae; 32.04 BMI Method:Stated General Appearance: WD/WN, no apparent distress, other (SKIN VERY WARM AND FACE FLUSHED; CONSTANT FEET MOVEMENTS) HEENT: PERRL/EOMI, other (NASAL CONGESETION) Neck: normal inspection Respiratory: no respiratory distress, no accessory muscle use; No rales; other (BILATERAL RHONCHI IN BASES--RIGHT >> LEFT) Cardiovascular: no JVD, no murmur, irregularly irregular Gastrointestinal: non tender, soft Extremities: no pedal edema, normal capillary refill, other (DRESSING IN PLACE TO RIGHT LOWER LEG IS CLEAN/DRY/INTACT. PT HAS A MODERATE ABRASION TO RIGHT MORRISSEY, WITH NO SIGNS OF INFECTION AND NO BLEEDING. NO SWELLING. ) Neurologic/Psychiatric: technical fellow II-XII nml as tested, no motor/sensory deficits, alert, normal mood/affect Skin: warm/dry, other (FLUSHED) Focused Exam Sepsis Stage: Sepsis Possible Source: Pulmonary Lactate Level 08/24/21 21:00: Lactic Acid Level 1.29 Time of Focused Exam: 21:50 Respiratory: No Accessory Muscle Use, No Respiratory Distress, Other (RHONCHI RIGHT > LEFT BASE) Cardiovascular: Irregularly Irregular Capillary Refill: Less Than 3 Seconds Skin: normal color, warm/dry Lactic Acid Level Laboratory Tests Test 08/24/21 21:00 Lactic Acid Level 1.29 MMOL/L (0.50-2.00) Within 3hrs of presentation: Admin fluids, Admin ABX, Blood cultures prior to ABX's, Focus exam, Lactate level Procedures/Interventions Date of ETT Placement: Sep 21, 2018 Time of ETT Placement: 719 Progress/Results/Core Measures Suspected Sepsis SIRS Temperature: Pulse: 77 Respiratory Rate: 20 Laboratory Tests 08/24/21 21:00: White Blood Count 12.9H Blood Pressure 159 /70 Mean: 99 08/24/21 21:00: Lactic Acid Level 1.29 Laboratory Tests 08/24/21 21:00: Creatinine 1.29, INR Comment 2.2H, Platelet Count 187, Total Bilirubin 1.2H Results/Orders Lab Results Laboratory Tests Test 08/24/21 20:54 08/24/21 21:00 08/24/21 21:13 Range/Units Influenza Type A (RT-PCR) Not Detected Not Detecte Influenza Type B (RT-PCR) Not Detected Not Detecte SARS-CoV-2 RNA (RT-PCR) Not Detected Not Detecte White Blood Count 12.9 H 4.3-11.0 10^3/uL Red Blood Count 4.13 L 4.30-5.52 10^6/uL Hemoglobin 12.0 L 13.3-17.7 g/dL Hematocrit 37 L 40-54 % Mean Corpuscular Volume 89 80-99 fL Mean Corpuscular Hemoglobin 29 25-34 pg Mean Corpuscular Hemoglobin Concent 33 32-36 g/dL Red Cell Distribution Width 16.0 H 10.0-14.5 % Platelet Count 187 130-400 10^3/uL Mean Platelet Volume 9.6 9.0-12.2 fL Immature Granulocyte % (Auto) 1 % Neutrophils (%) (Auto) 76 H 42-75 % Lymphocytes (%) (Auto) 14 12-44 % Monocytes (%) (Auto) 9 0-12 % Eosinophils (%) (Auto) 1 0-10 % Basophils (%) (Auto) 0 0-10 % Neutrophils # (Auto) 9.7 H 1.8-7.8 10^3/uL Lymphocytes # (Auto) 1.8 1.0-4.0 10^3/uL Monocytes # (Auto) 1.1 H 0.0-1.0 10^3/uL Eosinophils # (Auto) 0.1 0.0-0.3 10^3/uL Basophils # (Auto) 0.0 0.0-0.1 10^3/uL Immature Granulocyte # (Auto) 0.1 0.0-0.1 10^3/uL Erythrocyte Sedimentation Rate 24 0-30 MM/HR Prothrombin Time 24.9 H 12.2-14.7 SEC INR Comment 2.2 H 0.8-1.4 Activated Partial Thromboplast Time 61 H 24-35 SEC D-Dimer 0.36 0.00-0.49 UG/ML Sodium Level 136 135-145 MMOL/L Potassium Level 4.4 3.6-5.0 MMOL/L Chloride Level 102 98-107 MMOL/L Carbon Dioxide Level 21 21-32 MMOL/L Anion Gap 13 5-14 MMOL/L Blood Urea Nitrogen 21 H 7-18 MG/DL Creatinine 1.29 0.60-1.30 MG/DL Estimat Glomerular Filtration Rate 56 BUN/Creatinine Ratio 16 Glucose Level 133 H 70-105 MG/DL Lactic Acid Level 1.29 0.50-2.00 MMOL/L Calcium Level 8.9 8.5-10.1 MG/DL Corrected Calcium 9.1 8.5-10.1 MG/DL Magnesium Level 1.7 1.6-2.4 MG/DL Total Bilirubin 1.2 H 0.1-1.0 MG/DL Aspartate Amino Transf (AST/SGOT) 15 5-34 U/L Alanine Aminotransferase (ALT/SGPT) 11 0-55 U/L Alkaline Phosphatase 83 40-136 U/L Total Creatine Kinase 39 30-200 U/L Creatine Kinase MB 1.2 <6.6 NG/ML Troponin I < 0.028 <0.028 NG/ML C-Reactive Protein High Sensitivity 12.97 H 0.00-0.50 MG/DL B-Type Natriuretic Peptide 113.4 H <100.0 PG/ML Total Protein 6.9 6.4-8.2 GM/DL Albumin 3.8 3.2-4.5 GM/DL Procalcitonin 0.13 H <0.10 NG/ML Blood Gas Puncture Site RIGHT WRIST Blood Gas Patient Temperature 36 Arterial Blood pH 7.45 H 7.37-7.43 Arterial Blood Partial Pressure CO2 33 L 35-45 MMHG Arterial Blood Partial Pressure O2 54 L 79-93 MMHG Arterial Blood HCO3 23 23-27 MMOL/L Arterial Blood Total CO2 23.7 21.0-31.0 MMOL/L Arterial Blood Oxygen Saturation 89 L 94-100 % Arterial Blood Base Excess -0.8 -2.5-2.5 MMOL/L Pranav Test POSITIVE Blood Gas Ventilator Setting NO Blood Gas Inspired Oxygen RA My Orders Orders - VANDANAJORDANA Guillermo DO Ed Iv/Invasive Line Start (08/24/21 20:47) Ekg Tracing (08/24/21 20:47) O2 (08/24/21 20:47) Monitor-Rhythm Ecg Trace Only (08/24/21 20:47) Chest 1 View, Ap/Pa Only (08/24/21 20:47) Bnp [place] (08/24/21 20:47) Cbc With Automated Diff (08/24/21 20:47) Comprehensive Metabolic Panel (08/24/21 20:47) Creatine Kinase (08/24/21 20:47) Creatine Kinase Mb (08/24/21 20:47) Hs C Reactive Protein (08/24/21 20:47) Fibrin Degradation Products (08/24/21 20:47) Lactic Acid Analyzer (08/24/21 20:47) Magnesium (08/24/21 20:47) Procalcitonin (Pct) (08/24/21:47) Protime With Inr (08/24/21 20:47) Partial Thromboplastin Time (08/24/21 20:47) Ua Culture If Indicated (08/24/21 20:47) Blood Culture (08/24/21 20:47) Erythrocyte Sedimentation Rate (08/24/21 20:47) Troponin I Amanda (08/24/21 20:47) Covid 19 Inhouse Test (08/24/21 20:47) Influenza A And B By Pcr (08/24/21 20:47) Isolation Central Supply Req (08/24/21 20:47) Acetaminophen Tablet (Tylenol Tablet) (08/24/21 21:15) Ibuprofen Tablet (Motrin Tablet) (08/24/21 21:15) Ed Iv/Invasive Line Start (08/24/21 21:04) Ns Iv 1000 Ml (Sodium Chloride 0.9%) (08/24/21 21:15) Sputum Culture (08/24/21 21:04) Urine Culture (08/24/21 21:04) Ed Iv/Invasive Line Start (08/24/21 21:04) O2 (08/24/21 21:04) Remove Rings In Anticipation O (08/24/21 21:04) Ceftriaxone 1 Gm Pre-Mix (Rocephin 1 Gm (08/24/21 21:15) Azithromycin Injection (Zithromax Inject (08/24/21 21:15) Dipht,Pertuss(Acell),Tet Adult (Boostrix (08/24/21 22:00) Medications Given in ED Current Medications Medications Dose Ordered Sig/Sarika Route Start Time Stop Time Status Last Admin Dose Admin Acetaminophen 1,000 mg ONCE ONCE PO 08/24/21 21:15 08/24/21 21:16 DC 08/24/21 21:24 1,000 MG Azithromycin 500 mg/Sodium Chloride 255 ml @ 250 mls/hr ONCE ONCE IV 08/24/21 21:15 08/24/21 22:16 DC 08/24/21 22:16 250 MLS/HR Ceftriaxone Sodium/Dextrose 50 ml @ 100 mls/hr ONCE ONCE IV 08/24/21 21:15 08/24/21 21:44 DC 08/24/21 21:24 100 MLS/HR Diphtheria/ Tetanus/Acell Pertussis 0.5 ml ONCE ONCE IM 08/24/21 22:00 08/24/21 22:01 DC 08/24/21 22:22 0.5 ML Ibuprofen 800 mg ONCE ONCE PO 08/24/21 21:15 08/24/21 21:16 DC 08/24/21 21:24 800 MG Vital Signs/I&O 08/24/21 08/24/21 20:40 21:15 Temp 38.6 Pulse 77 Resp 20 B/P (MAP) 159/70 (99) Pulse Ox 96 O2 Delivery Nasal Cannula O2 Flow Rate 1.00 Capillary Refill : Blood Pressure Mean: 99 Progress Note : Progress Note SEPSIS PROTOCOL INITIATED INITIAL O2 SAT 88% AFTER HE WALKED INTO ER. O2 SATS UP TO 92% ON ROOM AIR AFTER HE WAS ON ER CART AND AT REST PLACED ON O2 AT 2L/NC AND O2 SATS UP TO 96%. GIVEN IV FLUIDS, TYLENOL/MOTRIN AND ANTIBIOTICS NO DETERIORATION IN PT'S CONDITION DURING ER STAY ECG Initial ECG Impression Date: August 24, 2021 Initial ECG Impression Time: 20:57 Initial ECG Rate: 64 Comment VENTRICULAR PACEMAKER. Diagnostic Imaging Comments CXR--PER RADIOLOGIST REPORT AT 2212 Right extremity PICC line tip projects over the SVC. There is cardiomegaly with pulmonary vascular congestion. There is a dual-chamber pacemaker. 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 There is infiltrate present in the right lower lung. IMPRESSION: Pulmonary venous hypertension. Right lower lobe consolidation consistent with pneumonia. Reviewed: Reviewed by Me Departure Communication (Admissions) 2155--SPOKE WITH DR. BARILLAS, ACCEPTS PT FOR ADMIT. Impression Primary Impression: Sepsis Additional Impressions: Pneumonia Acute on chronic respiratory failure COPD (chronic obstructive pulmonary disease) Hx of CABG Presence of permanent cardiac pacemaker Chronic atrial fibrillation Disposition: ADMITTED INPATIENT Condition: Stable Admissions Decision to Admit Reason: Admit from ER (General) Decision to Admit/Date: August 24, 2021 Time/Decision to Admit Time: 22:00 Departure-Patient Inst. Referrals: CODEY BARILLAS MD (PCP/Family) Primary Care Physician CHAUNCEY ROSS DO August 24, 2021 21:51
--- NOTE | 2021-08-24 21:55 | Diagnostic Imaging Report ---
Indication: Lower respiratory infection Portable chest 9:54 PM Right extremity PICC line tip projects over the SVC. There is cardiomegaly with pulmonary vascular congestion. There is a dual-chamber pacemaker. 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 There is infiltrate present in the right lower lung. IMPRESSION: Pulmonary venous hypertension. Right lower lobe consolidation consistent with pneumonia. Dictated by: Dictated on workstation # [id number]
[2021-08-24] MEDS ORDERED: TETANUS,DIPTH,PERTUSS P/F (BOOSTRIX) 0.5 ML VIAL IM ONE (22:00)
[2021-08-24 22:39] LABS: ABG BASE EXCESS -0.8 MMOL/L (-2.5-2.5); ABG PCO2 33 MMHG (35-45); ABG PH 7.45 (7.37-7.43); ABG PO2 54 MMHG (79-93); ABG TCO2 23.7 MMOL/L (21.0-31.0)
[2021-08-24 22:40] LABS: ABG OXYGEN SATURATION 89 % (94-100); ALLENS TEST POSITIVE; INSPIRED O2 RA; PATIENT TEMP 36; VENTILATOR NO
[2021-08-24 23:00] VITALS: BP 128/63
[2021-08-24] MEDS ORDERED: IBUPROFEN 800 MG (MOTRIN) TAB PO PRN (23:45)
[2021-08-24] MEDS ORDERED: ONDANSETRON 4 MG/2 ML (SDV) Z0FRAN IV PRN (23:45)
[2021-08-24] MEDS ORDERED: ACETAMINOPHEN 500 MG TAB (TYLENOL) PO PRN (23:45)
[2021-08-25] VITALS (7 sets, daily range): BP systolic 135–176; BP diastolic 65–81
[2021-08-25] MEDS ORDERED: warFARin 3 MG (COUMADIN) TAB PO ONE (00:15)
[2021-08-25] MEDS ORDERED: TAMSULOSIN 0.4 MG (FLOMAX) CAP PO ONE (00:15)
[2021-08-25] MEDS: LACTATED RINGERS 1,000 ML IV SCH ×4 (00:25→21:52)
[2021-08-25] MEDS: methylPREDNISolone 125 MG (Solu-MEDROL) VIAL IV SCH ×2 (00:25→06:31)
[2021-08-25] MEDS ORDERED: RT-ALBUTEROL SULF 2.5 MG/3 ML PRE-MIX VIAL INH SCH (00:30)
[2021-08-25 00:43] LABS: CLARITY,URINE CLEAR; COLOR,URINE ORANGE; GLUCOSE, URINE (UA) NEGATIVE (NEGATIVE); KETONES,URINE TRACE (NEGATIVE); LEUKOCYTE ESTERASE ,URINE NEGATIVE (NEGATIVE); NITRITE,URINE NEGATIVE (NEGATIVE); PROTEIN,URINE TRACE (NEGATIVE)
[2021-08-25 01:06] LABS: BILIRUBIN,URINE 1+ (NEGATIVE); WBC,URINE 0-2 /HPF
[2021-08-25 01:07] LABS: BACTERIA,URINE FEW /HPF; HYALINE CASTS, URINE 0-2 /LPF
[2021-08-25] MEDS: RT-ALBUTEROL SULF 2.5 MG/3 ML PRE-MIX VIAL INH SCH ×6 (02:10→21:57)
[2021-08-25] MEDS ORDERED: HYDR-3923 PO (04:34)
[2021-08-25] MEDS ORDERED: Vitamin D PO (04:39)
[2021-08-25] MEDS ORDERED: WARF3TAB56 PO (04:43)
[2021-08-25] MEDS ORDERED: WARF4TAB3 PO (04:43)
[2021-08-25] MEDS: CATHETER FLUSH 10 ML SYR IVP SCH ×4 (04:59→23:41)
[2021-08-25 05:53] LABS: BASOPHILS % (AUTO) 0 % (0-10); EOSINOPHILS % (AUTO) 0 % (0-10); HEMATOCRIT 38 % (40-54); HEMOGLOBIN 12.4 g/dL (13.3-17.7); LYMPHOCYTES # (AUTO) 0.6 10^3/uL (1.0-4.0); LYMPHOCYTES % (AUTO) 5 % (12-44); MEAN CORPUSCULAR HEMOGLOBIN 30 pg (25-34); MEAN CORPUSCULAR HGB CONC 32 g/dL (32-36); MEAN CORPUSCULAR VOLUME 91 fL (80-99); MONOCYTES # (AUTO) 0.3 10^3/uL (0.0-1.0); MONOCYTES % (AUTO) 3 % (0-12); NEUTROPHILS # (AUTO) 10.2 10^3/uL (1.8-7.8); NEUTROPHILS % (AUTO) 91 % (42-75); PLATELET COUNT 175 10^3/uL (130-400); WHITE BLOOD COUNT 11.3 10^3/uL (4.3-11.0)
[2021-08-25 06:03] LABS: ALBUMIN 3.7 GM/DL (3.2-4.5); POTASSIUM 4.2 MMOL/L (3.6-5.0)
[2021-08-25 06:04] LABS: CALCIUM 8.9 MG/DL (8.5-10.1)
[2021-08-25 06:05] LABS: TOTAL PROTEIN 6.8 GM/DL (6.4-8.2)
[2021-08-25 06:07] LABS: BILIRUBIN,TOTAL 1.2 MG/DL (0.1-1.0)
[2021-08-25 06:09] LABS: CREATININE SERUM 1.31 MG/DL (0.60-1.30)
[2021-08-25 06:57] LABS: ANISOCYTOSIS SLIGHT; BAND NEUTROPHILS 1 %; LYMPHOCYTES % (MANUAL) 4 %; MONOCYTES % (MANUAL) 1 %; NEUTROPHILS % (MANUAL) 94 %
--- NOTE | 2021-08-25 07:25 | Diagnostic Imaging Report ---
EXAMINATION: Chest 1 view HISTORY: Sepsis. Pneumonia. Followup. COMPARISON: 08/24/2021. FINDINGS: Stable widespread patchy and consolidative opacities are seen throughout both lungs. No large pleural effusion or pneumothorax. Stable cardiac silhouette with post CABG changes. Stable left pectoral pacemaker. IMPRESSION: 1. Stable widespread patchy opacities, which may represent multifocal pneumonia versus edema. 2. Stable cardiomegaly. Dictated by: Dictated on workstation # [id number]
--- NOTE | 2021-08-25 08:03 | History & Physical ---
History of Present Illness History of Present Illness Reason for visit/HPI PT IS A 81 Y/O MALE WHO IS KNOWN TO ME FROM CLINIC. HE PRESENTED TO THE HOSPITAL WITH COMPLAINT OF A COUGH WITH SLIGHT HEMOPTYSIS AND CONCERN FOR PNEUMONIA. ON EVALUATION IN THE ER, HE HAD EPISODES OF HYPOXIA WELL CLINICAL AND IMAGING EVIDENCE OF ACUTE PNEUMONIA WITH MILD SEPSIS. PT WAS ADMITTED TO THE HOSPITAL FOR DX OF PNEUMONIA AND SEPSIS. Date of Admission August 24, 2021 at 22:00 Date Seen by a Provider: August 25, 2021 Time Seen by a Provider: 08:00 I consulted on this patient on 08/25/21 08:01 Attending Physician Codey Parsons MD Admitting Physician Codey Parsons MD Consult Allergies and Home Medications Allergies Coded Allergies: Sulfa (Sulfonamide Antibiotics) (Verified Allergy, Unknown, 08/31/18) montelukast (Unverified Adverse Reaction, Unknown, 06/08/16) Hallucinations per pt Patient Home Medication List Home Medication List Reviewed: Yes Acetaminophen (Tylenol Extra Strength) 500 Mg Tablet, 500-1,000 MG PO Q8H PRN for PAIN-MILD (1-4) OR TEMPATURE, (Reported) Entered as Reported by: DAYANNA CARSON on 03/28/211614 Last Action: Continued Ascorbic Acid (Vitamin C) 500 Mg Tablet, 500 MG PO HS, (Reported) Entered as Reported by: DAYANNA CARSON on 03/28/211614 Last Action: Held Aspirin (Aspirin EC) 81 Mg Tablet.dr, 81 MG PO Q48H, (Reported) Entered as Reported by: DAYANNA CARSON on 03/28/211614 Last Action: Continued Cetirizine HCl (Cetirizine HCl) 10 Mg Tablet, 10 MG PO 1200, (Reported) Entered as Reported by: DAYANNA CARSON on 03/28/211614 Last Action: Continued Cholecalciferol (Vitamin D3) (Vitamin D3) 125 Mcg Capsule, 125 MCG PO DAILY, (Reported) Entered as Reported by: DAYANNA CARSON on 03/28/211614 Last Action: Held Diltiazem HCl (Diltiazem 24Hr ER) 120 Mg Cap.er.24h, 120 MG PO DAILY, (Reported) Entered as Reported by: DAYANNA CARSON on 03/28/211614 Last Action: Continued Duloxetine HCl (Duloxetine HCl) 20 Mg Capsule.dr, 20 MG PO Q12H, (Reported) Entered as Reported by: DAYANNA CARSON on 03/28/211614 Last Action: Continued Fluticasone Propionate (Fluticasone Propionate) 16 Gm [place].susp, 1 SPRAY NSEACH BID, (Reported) Entered as Reported by: SARAH CLEARY on 12/08/15 1411 Last Action: Continued Fluticasone/Vilanterol (Breo Ellipta 100-25 Mcg INH) 1 Each Blst.w.dev, 1 PUFF INH DAILY, (Reported) Entered as Reported by: DAYANNA CARSON on 03/28/211614 Last Action: Continued Furosemide (Furosemide) 20 Mg Tablet, 20 MG PO Q72H, (Reported) Entered as Reported by: DAYANNA CARSON on 03/28/211614 Last Action: Held Glucosamine/D3/Boswellia Kathrin (Osteo Bi-Flex Tablet) 1,500 Mg-400 Unit-100 Mg Tablet, 1 EACH PO 1200, (Reported) Entered as Reported by: DAYANNA CARSON on 08/25/21 1156 Last Action: Held Lactobacillus Combination No.4 (Probiotic) 1 Each Capsule, 1 EA PO HS, (Reported) Entered as Reported by: SARAH CLEARY on 06/08/16 1245 Last Action: Converted Loperamide HCl (Imodium A-D) 2 Mg Tablet, 1 MG PO BID WITH MEALS, (Reported) Entered as Reported by: DYLAN HORTON on 09/19/18 0828 Last Action: Converted Losartan Potassium (Losartan Potassium) 50 Mg Tablet, 25 MG PO 1800 W/SUPPER, (Reported) Entered as Reported by: DAYANNA CARSON on 03/28/211614 Last Action: Continued Mesalamine (Mesalamine) 1.2 Gm Tablet.dr, 2.4 GM PO 1800 W/ DINNER, (Reported) Entered as Reported by: DAYANNA CARSON on 03/28/211614 Last Action: Converted Metoprolol Tartrate (Metoprolol Tartrate) 25 Mg Tablet, 25 MG PO BID WITH MEALS, (Reported) Entered as Reported by: DAYANNA CARSON on 03/28/211614 Last Action: Continued Multivit-Min/FA/Lycopene/Lut (Centrum Silver Tablet) 1 Each Tablet, 1 EA PO 1200, (Reported) Entered as Reported by: DYLAN HORTON on 04/12/17 0911 Last Action: Held Mupirocin (Mupirocin) 2 % Oint...g., 1 APPLIC TOP TID, (Reported) Entered as Reported by: DAYANNA CARSON on 08/25/21 1156 Last Action: Held Pantoprazole Sodium (Pantoprazole Sodium) 40 Mg Tablet.dr, 40 MG PO DAILY, (Reported) Entered as Reported by: DAYANNA CARSON on 03/28/211614 Last Action: Continued Tamsulosin HCl (Flomax) 0.4 Mg Cap, 0.4 MG PO 1800 W/SUPPER, (Reported) Entered as Reported by: DAYANNA CARSON on 03/28/211614 Last Action: Continued Warfarin Sodium (Warfarin Sodium) 3 Mg Tablet, 3 MG PO VARELA,MO,WE,TH,SA @1800, (Reported) Entered as Reported by: MERCEDES SHABAZZ on 08/25/21442 Last Action: Continued Warfarin Sodium (Warfarin Sodium) 4 Mg Tablet, 4 MG PO TU,FR @1800, (Reported) Entered as Reported by: MERCEDES SHABAZZ on 08/25/21442 Last Action: Continued Discontinued Medications Albuterol Sulfate (Albuterol Sulfate) 2.5 Mg/3 Ml Vial.neb, 2.5 MG INH Q4H Discontinued Reason: No Longer Taking Prescribed by: JOELLEN DRAKE on 03/30/21 1102 Last Action: Discontinued Cefdinir (Cefdinir) 300 Mg Capsule, 300 MG PO BID Discontinued Reason: No Longer Taking Prescribed by: JOELLEN DRAKE on 03/30/21 110 Last Action: Discontinued Glucosamine Sulfate 2Kcl (Glucosamine) 1,000 Mg Tablet, 1,000 MG PO 1200, (Reported) Discontinued Reason: Prescription changed Entered as Reported by: DAYANNA CARSON on 03/28/211614 Last Action: Reviewed Hydralazine HCl (Hydralazine HCl) 25 Mg Tablet, 25 MG PO NEEDED PRN for BLOOD PRESSURE, (Reported) Discontinued Reason: No Longer Taking Entered as Reported by: MERCEDES SHABAZZ on 08/25/21433 Last Action: Discontinued Warfarin Sodium (Warfarin Sodium) 3 Mg Tablet, 3 MG PO DAILY Discontinued Reason: Duplicate Order Prescribed by: JOELLEN DRAKE on 03/30/21 1102 Last Action: Discontinued [Vitamin D] , 500 MG PO DAILY, (Reported) Discontinued Reason: Duplicate Order Entered as Reported by: MERCEDES SHABAZZ on 08/25/21 0469 Last Action: Discontinued Past Wfjinkd-Rpnwpj-Njdrje Hx Patient Social History Marrital Status: Living Status: lives at home with spouse of 30 years. Tobacco Use?: Yes (FORMER SMOKER) Tobacco type used: Cigarettes Smoking Status: Former Smoker Use of E-Cig and/or Vaping dev: No Substance use?: No Alcohol Use?: No Pt feels they are or have been: No Immunizations Up To Date Date of Influenza Vaccine: Dec 31, 2020 First/Initial COVID19 Vaccinat: 12/31/20 Second COVID19 Vaccination Terence: 02/20 Tetanus Booster (TDap): Less Than 5 Years PED Vaccines UTD: Yes Date of Pneumonia Vaccine: August 05, 2018 Seasonal Allergies Seasonal Allergies: Yes Current Status Advance Directives: Yes Advance Directive Location: Scanned into EMR Communicates: Points Primary Language: Faroese Preferred Spoken Language: Faroese Is interpretation needed?: No Sensory deficits: Vision impairment Implanted or Applied Medical D: Pacemaker Past Medical History Surgeries: Cardiac, CABG, Coronary Stent, Gallbladder, Pacemaker Pneumonia, Sleep Apnea, COPD Currently Using CPAP: No Currently Using BIPAP: Yes Atrial Fibrillation, Coronary Artery Disease, High Cholesterol, Hypertension Sexually Transmitted Disease: No HIV/AIDS: No Benign Prostatic Hyperpl Colitis (ULCERATIVE COLITIS), Chronic Diarrhea, Polyps Arthritis Loss of Vision: Denies Hearing Impairment: Denies Skin Did You Recieve Any Treatments: Yes What Type of Treatment Did You: Surgical Intervention 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 Blood Disorders: No Adverse Reaction/Blood Tranf: No (N/A) Family Medical History Reviewed and Corrections made Arthritis Cardiovascular disease Kidney disease G8 BROTHER Leukemia G8 BROTHER Multiple myeloma Prostate cancer 19 FATHER Heart Disease, Hypertension SOCIAL HISTORY: -HISTORY OF SMOKING, QUIT YEARS AGO -DRUGS-DENIES USE -ETOH-DENIES USE PAST SURGICAL HISTORY: -09/25/2006-PACEMAKER BY DR. JUNIOR -03/30/2008-[address] [facility] [facility] -10/06/2011--CARDIAC CATH BY DR. HOYOS; NO INTERVENTION -10/2011-CHOLECYSTECTOMY BY DR. HAYS -10/17/2011--PACEMAKER REPLACED BY DR. JUNIOR -03/01/2012--COLONOSCOPY BY DR. WILLAMS. DX ULCERATIVE COLITIS -12/30/2013--CARDIAC CATH WITH STENTS X [address] 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 LYNN -04/2016--REMOVAL OF BENIGN MASS ON BACK BY DR. BENJAMIN. -05/2017--COLONOSCOPY BY DR. MCKOY -09/21/2019--PACEMAKER REPLACED BY DR. JUNIOR ADDITIONAL PMH: 08/31/2018-10/31/2018-PT HAD PNEUMONIA WITH RESPIRATORY FAILURE AND PLACED ON VENTILATOR. PT THEN WENT TO [facility] FOR REHAB FROM 10/31/2018--12/01/2018 Review of Systems Constitutional: chills; No fever; malaise, weakness EENTM: No hoarseness, No throat pain Respiratory: cough, dyspnea on exertion, short of breath Cardiovascular: No chest pain, No palpitations Gastrointestinal: No abdominal pain, No constipation; diarrhea (CHRONIC); No nausea, No vomiting Genitourinary: No dysuria, No frequency, No pain Musculoskeletal: No back pain; muscle weakness Skin: other (SKIN TEAR OF RIGHT LOWER LEG) Psychiatric/Neurological: Denies Anxiety, Denies Depressed; Weakness All Other Systems Reviewed Negative Unless Noted: Yes Physical Exam Vital Signs Vital Signs - First Documented 08/24/21 08/24/21 08/25/21 20:40 21:15 00:24 Temp 38.6 Pulse 77 Resp 20 B/P (MAP) 159/70 (99) Pulse Ox 96 O2 Delivery Nasal Cannula O2 Flow Rate 1.00 FiO2 28 Capillary Refill : Less Than 3 Seconds Height, Weight, BMI Height: 5'6.00" Weight: 197lbs. 8.0oz. 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 There is cardiomegaly with pulmonary vascular congestion. There is a dual-chamber pacemaker. 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 There is infiltrate present in the right lower lung. IMPRESSION: Pulmonary venous hypertension. Right lower lobe consolidation consistent with pneumonia. - PT ADMITTED TO 4TH FLOOR, STARTED ON ROCEPHIN AND AZITHROMYCIN - MONITOR SERIAL REPEAT CXR'S - MAT PROTOCOL, OXYGENATION WITH NASAL CANULA AND CHRONIC INHALERS. HYPERTENSION RESUME HOME REGIMEN, MONITOR PRESSURES. ATRIAL FIBRILLATION WITH CHRONIC ANTICOAGULATION THERAPY - RESUME COUMADIN, RESUME RATE CONTROLLING MEDICATION. - MONITOR INR ESOPHAGEAL REFLUX - RESUME PPI THERAPY CHRONIC ULCERATIVE COLITIS WITH CHRONIC DIARRHEA - RESUME MESALAMINE, LOPERIMIDE, PROBIOTICS. WEAKNESS - WILL START PHYSICAL THERAPY. LEUKOCYTOSIS - REPEAT CBC TOMORROW. ANEMIA - MONITOR H AND H CHRONIC STAGE 2 RENAL DISEASE - RENAL DOSING OF MEDICATION IF NEEDED, MONITOR LABS. ACUTE SKIN TEAR RIGHT LOWER ANTERIOR LEG - CONSULT TO WOUND CARE DVT PROPHYLAXIS WITH FOOT SCD'S AND COUMADIN GI PROPHYLAXIS WITH PPI THERAPY. Admission Diagnosis SEPSIS PNEUMONIA HYPERTENSION ATRIAL FIBRILLATION ESOPHAGEAL REFLUX CHRONIC ULCERATIVE COLITIS CHRONIC DIARRHEA WEAKNESS LEUKOCYTOSIS ANEMIA CHRONIC ANTICOAGULATION CHRONIC STAGE 2 RENAL DISEASE ACUTE SKIN TEAR RIGHT LOWER ANTERIOR LEG Admission Status: Inpatient Order (span 2 midnights) Reason for Inpatient Admission: INPATIENT ADMISSION FOR SEPSIS AND PNEUMONIA - WILL REQUIRE MORE THAN 2 MIDNIGHTS FOR STABILIZATION AND TREATMENT CODEY PARSONS MD August 25, 2021 08:02
[2021-08-25] MEDS ORDERED: MUPI22OI2 TOP (11:56)
[2021-08-25] MEDS ORDERED: GLUC-219 PO (11:56)
--- NOTE | 2021-08-25 12:24 | Wound Care Assessment ---
Wound Care Assessment Date Seen by Provider: August 25, 2021 Time Seen by Provider: 12:16 Chief Complaint Skin tear R. anterior tibia HPI This pleasant 81 year old gentleman was doing some yard work on Sunday and slipped with skin tear to R. anterior tibia. He was assessed at Urgent care subsequently due to continued bleeding (he is anticoagulated for atrial fibrillation). The are of concern is no longer bleeding. Please see wound assessment for full details. He is currently admitted to the hospital with pneumonia with oxygen requirement. He does also have a h/o COPD and is on systemic steroids (which may delay his wound healing). He is not diabetic by history. Smoking Status: Former Smoker Recreational Drug Use: No Alcohol Use: Denies Use Review of Systems General: Other (Obesity) Exam Vital Signs Date Time Temp Pulse Resp B/P (MAP) Pulse Ox O2 Delivery O2 Flow Rate FiO2 08/25/21 11:20 36.9 67 18 153/76 (101) 95 Nasal Cannula 4.00 08/25/21 00:24 28 Capillary Refill : Less Than 3 Seconds General Appearance: WD/WN, no apparent distress, obese Cardiovascular: no edema Respiratory: no respiratory distress, no accessory muscle use Extremities: normal range of motion, non-tender, no pedal edema Neurologic/Psychiatric: alert, normal mood/affect, oriented x 3 Skin: normal color, warm/dry, ecchymosis Wound assessment: 4.5x1.8x0.1cm. The epithelialization is none. There is no tunneling or undermining. Drainage is medium and serosanguinous. Granulation is large and pink, necrotic is none. The wound margins are flat. Several small flaps reapproximated well (ecchymotic). It is uncertain if these will become necrotic but appear viable currently. There is no surrounding erythema or induration (no signs of infection). Results Laboratory Tests 08/24/21 20:54: Influenza Type A (RT-PCR) Not Detected, Influenza Type B (RT-PCR) Not Detected, SARS-CoV-2 RNA (RT-PCR) Not Detected 08/24/21 21:00: White Blood Count 12.9H, Red Blood Count 4.13L, Hemoglobin 12.0L, Hematocrit 37L , Mean Corpuscular Volume 89, Mean Corpuscular Hemoglobin 29, Mean Corpuscular Hemoglobin Concent 33, Red Cell Distribution Width 16.0H, Platelet Count 187, Mean Platelet Volume 9.6, Immature Granulocyte % (Auto) 1, Neutrophils (%) (Auto) 76H, Lymphocytes (%) (Auto) 14, Monocytes (%) (Auto) 9, Eosinophils (%) (Auto) 1, Basophils (%) (Auto) 0, Neutrophils # (Auto) 9.7H, Lymphocytes # (Auto) 1.8, Monocytes # (Auto) 1.1H, Eosinophils # (Auto) 0.1, Basophils # (Auto) 0.0, Immature Granulocyte # (Auto) 0.1, Erythrocyte Sedimentation Rate 24, Prothrombin Time 24.9H, INR Comment 2.2H, Activated Partial Thromboplast Time 61H, D-Dimer 0.36, Sodium Level 136, Potassium Level 4.4, Chloride Level 102, Carbon Dioxide Level 21, Anion Gap 13, Blood Urea Nitrogen 21H, Creatinine 1.29, Estimat Glomerular Filtration Rate 56, BUN/Creatinine Ratio 16, Glucose Level 133H, Lactic Acid Level 1.29, Calcium Level 8.9, Corrected Calcium 9.1, Magnesium Level 1.7, Total Bilirubin 1.2H, Aspartate Amino Transf (AST/SGOT) 15, Alanine Aminotransferase (ALT/SGPT) 11, Alkaline Phosphatase 83, Total Creatine Kinase 39, Creatine Kinase MB 1.2, Troponin I < 0.028, C-Reactive Protein High Sensitivity 12.97H, B-Type Natriuretic Peptide 113.4H, Total Protein 6.9, Albumin 3.8, Procalcitonin 0.13H 08/24/21 21:13: Blood Gas Puncture Site RIGHT WRIST, Blood Gas Patient Temperature 36, Arterial Blood pH 7.45H, Arterial Blood Partial Pressure CO2 33L, Arterial Blood Partial Pressure O2 54L, Arterial Blood HCO3 23, Arterial Blood Total CO2 23.7, Arterial Blood Oxygen Saturation 89L, Arterial Blood Base Excess -0.8, Pranav Test POSITIVE, Blood Gas Ventilator Setting NO, Blood Gas Inspired Oxygen RA 08/25/21 00:20: Urine Color ORANGE, Urine Clarity CLEAR, Urine pH 5.0, Urine Specific [place] >=1.030, Urine Protein TRACEH, Urine Glucose (UA) NEGATIVE, Urine Ketones TRACEH , Urine Nitrite NEGATIVE, Urine Bilirubin 1+H, Urine Urobilinogen 0.2, Urine Leukocyte Esterase NEGATIVE, Urine RBC (Auto) NEGATIVE, Urine RBC NONE, Urine WBC 0-2, Urine Squamous Epithelial Cells 2-5, Urine Crystals NONE, Urine Bacteria FEWH, Urine Casts PRESENT, Urine Hyaline Casts 0-2H, Urine Mucus SMALLH , Urine Culture Indicated CULTURE PENDING 08/25/21 05:27: White Blood Count 11.3H, Red Blood Count 4.20L, Hemoglobin 12.4L, Hematocrit 38L , Mean Corpuscular Volume 91, Mean Corpuscular Hemoglobin 30, Mean Corpuscular Hemoglobin Concent 32, Red Cell Distribution Width 16.1H, Platelet Count 175, Mean Platelet Volume 10.0, Immature Granulocyte % (Auto) 1, Neutrophils (%) (Auto) 91H, Lymphocytes (%) (Auto) 5L, Monocytes (%) (Auto) 3, Eosinophils (%) (Auto) 0, Basophils (%) (Auto) 0, Neutrophils # (Auto) 10.2H, Lymphocytes # (Auto) 0.6L, Monocytes # (Auto) 0.3, Eosinophils # (Auto) 0.0, Basophils # (Auto) 0.0, Immature Granulocyte # (Auto) 0.1, Neutrophils % (Manual) 94, Lympho cytes % (Manual) 4, Monocytes % (Manual) 1, Band Neutrophils 1, Anisocytosis SLIGHT, Sodium Level 139, Potassium Level 4.2, Chloride Level 106, Carbon Dioxide Level 19L, Anion Gap 14, Blood Urea Nitrogen 21H, Creatinine 1.31H, Estimat Glomerular Filtration Rate 55, BUN/Creatinine Ratio 16, Glucose Level 196H, Calcium Level 8.9, Corrected Calcium 9.1, Total Bilirubin 1.2H, Aspartate Amino Transf (AST/SGOT) 14, Alanine Aminotransferase (ALT/SGPT) 10, Alkaline Phosphatase 82, Total Protein 6.8, Albumin 3.7 Microbiology Microbiology Assessment/Plan/Dx Assessment: 1. Skin tear R. anterior tibia 2. Anticoagulation 3. Systemic steroids Plan: 1. Cleanse wound daily with saline or wound cleanser. Apply Xeroform to wound bed and cover with ABD pad or telfa. Secure with tape. Change daily. 2. Will need supplies called to via [employer] upon discharge. May change qod upon discharge 3. No current bleeding noted 4. Defer further care to primary team Thank you for this consult and do not hesitate to call with further questions. QUENTIN ATKINSON MD August 25, 2021 12:24
[2021-08-25] MEDS: MUPIROCIN 2% OINT 22 GM (BACTROBAN) TUBE TOP SCH ×2 (13:12→21:51)
[2021-08-25] MEDS: methylPREDNISolone 125 MG (Solu-MEDROL) VIAL IVP SCH ×3 (13:13→23:41)
[2021-08-25] MEDS ORDERED: ACETAMINOPHEN 500 MG TAB (TYLENOL) PO PRN (20:00)
[2021-08-25] MEDS ORDERED: warFARin 3 MG (COUMADIN) TAB PO SCH (20:00)
[2021-08-25] MEDS ORDERED: AZITHROMYCIN INJECTION 500 MG in NS (IVPB) 250 ML IV SCH (21:00)
[2021-08-25] MEDS: FLUTICASONE NASAL SPRAY (FLONASE) 16 GM BTL NS SCH (21:00)
[2021-08-25] MEDS: DULoxetine 20 MG (CYMBALTA) CAP PO SCH (21:49)
[2021-08-25] MEDS: TAMSULOSIN 0.4 MG (FLOMAX) CAP PO SCH (21:49)
[2021-08-25] MEDS: cefTRIAXone 1 GM PRE-MIX 50 ML IV SCH (21:50)
[2021-08-25] MEDS: LOPERAMIDE 2 MG (IMODIUM) TABLET PO SCH (21:50)
[2021-08-26] MEDS: RT-ALBUTEROL SULF 2.5 MG/3 ML PRE-MIX VIAL INH SCH ×6 (02:27→22:11)
[2021-08-26] MEDS ORDERED: RT-ALBUTEROL SULF 2.5 MG/3 ML PRE-MIX VIAL INH PRN (02:45)
[2021-08-26 04:03] VITALS: BP 151/78
[2021-08-26 05:42] LABS: BASOPHILS % (AUTO) 0 % (0-10); EOSINOPHILS % (AUTO) 0 % (0-10); HEMATOCRIT 34 % (40-54); LYMPHOCYTES # (AUTO) 0.4 10^3/uL (1.0-4.0); LYMPHOCYTES % (AUTO) 3 % (12-44); MEAN CORPUSCULAR HEMOGLOBIN 29 pg (25-34); MEAN CORPUSCULAR HGB CONC 33 g/dL (32-36); MEAN CORPUSCULAR VOLUME 90 fL (80-99); MEAN PLATELET VOLUME 9.9 fL (9.0-12.2); MONOCYTES # (AUTO) 0.4 10^3/uL (0.0-1.0); MONOCYTES % (AUTO) 3 % (0-12); NEUTROPHILS # (AUTO) 13.4 10^3/uL (1.8-7.8); NEUTROPHILS % (AUTO) 93 % (42-75); PLATELET COUNT 171 10^3/uL (130-400); WHITE BLOOD COUNT 14.4 10^3/uL (4.3-11.0)
[2021-08-26] MEDS: LACTATED RINGERS 1,000 ML IV SCH (05:46)
[2021-08-26] MEDS: methylPREDNISolone 125 MG (Solu-MEDROL) VIAL IVP SCH ×2 (05:46→11:51)
[2021-08-26] MEDS: CATHETER FLUSH 10 ML SYR IVP PRN ×2 (05:47→20:54)
[2021-08-26 05:57] LABS: ALBUMIN 3.1 GM/DL (3.2-4.5)
[2021-08-26 05:58] LABS: POTASSIUM 3.5 MMOL/L (3.6-5.0)
[2021-08-26 05:59] LABS: CALCIUM 8.9 MG/DL (8.5-10.1); INR 3.1 (0.8-1.4); PROTHROMBIN TIME PATIENT 32.3 SEC (12.2-14.7)
[2021-08-26 06:02] LABS: BILIRUBIN,TOTAL 0.4 MG/DL (0.1-1.0)
[2021-08-26 06:04] LABS: CREATININE SERUM 0.96 MG/DL (0.60-1.30)
--- NOTE | 2021-08-26 06:43 | Progress Note ---
Subjective Subjective Date Seen by Provider: August 26, 2021 Time Seen by Provider: 06:15 Pt reports that he is breathing a little bit better today. He still has trouble breathing when supine, but is doing well on oxygen. Review of Systems General: No Chills, No Night Sweats; Other (Obesity) HEENT: No Head Aches, No Visual Changes Pulmonary: Dyspnea; No Cough Cardiovascular: No: Chest Pain, Palpitations Gastrointestinal: No: Nausea, Vomiting, Abdominal Pain Genitourinary: No Dysuria, No Frequency Musculoskeletal: No: neck pain, back pain Neurological: Weakness; No: Numbness All Other Systems Reviewed All Other Systems Reviewed: Yes Objective Exam Vital Signs Vital Signs Date Time Temp Pulse Resp B/P (MAP) Pulse Ox O2 Delivery O2 Flow Rate FiO2 08/26/21 04:03 36.9 75 20 151/78 (102) 95 Nasal Cannula 2.00 08/26/21 02:27 94 Nasal Cannula 2.50 08/26/21 01:00 60 08/25/21 23:14 36.5 72 20 147/72 (97) 96 Nasal Cannula 2.00 08/25/21 21:57 92 Nasal Cannula 2.50 08/25/21 20:30 Nasal Cannula 3.00 08/25/21 19:44 36.8 77 20 143/65 (91) 97 Nasal Cannula 2.00 08/25/21 19:06 94 Nasal Cannula 2.50 08/25/21 16:00 36.5 75 20 153/67 (95) 95 Nasal Cannula 3.00 08/25/21 11:20 36.9 67 18 153/76 (101) 95 Nasal Cannula 4.00 08/25/21 08:00 Nasal Cannula 3.00 08/25/21 07:50 35.8 68 18 135/75 (95) 94 Nasal Cannula 4.00 08/25/21 07:00 63 I & O 08/26/21 07:00 Intake Total 1120 ml Output Total 1150 ml Balance -30 ml General Appearance: No Apparent Distress, WD/WN HEENT: PERRL/EOMI, Pharynx Normal Neck: Full Range of Motion, Normal Inspection, Non Tender, Supple Respiratory: Crackles, Decreased Breath Sounds, Wheezing Cardiovascular: Systolic Murmur, Irregularly Irregular Gastrointestinal: Normal Bowel Sounds, Non Tender, Soft Rectal: Deferred Back: Normal Inspection, No Vertebral Tenderness Extremity: Normal Capillary Refill, No Calf Tenderness, Pedal Edema Neurologic/Psychiatric: Alert, Oriented x3, No Motor/Sensory Deficits, Normal Mood/Affect, humidifier operator II-XII Norm as Tested Skin: Warm/Dry, Other Results Lab Laboratory Tests 08/26/21 05:33: White Blood Count 14.4H, Red Blood Count 3.74L, Hemoglobin 11.0L, Hematocrit 34L , Mean Corpuscular Volume 90, Mean Corpuscular Hemoglobin 29, Mean Corpuscular Hemoglobin Concent 33, Red Cell Distribution Width 15.8H, Platelet Count 171, Mean Platelet Volume 9.9, Immature Granulocyte % (Auto) 1, Neutrophils (%) (Auto) 93H, Lymphocytes (%) (Auto) 3L, Monocytes (%) (Auto) 3, Eosinophils (%) (Auto) 0, Basophils (%) (Auto) 0, Neutrophils # (Auto) 13.4H, Lymphocytes # (Auto) 0.4L, Monocytes # (Auto) 0.4, Eosinophils # (Auto) 0.0, Basophils # (Auto) 0.0, Immature Granulocyte # (Auto) 0.1, Prothrombin Time 32.3H, INR Comment 3.1H, Sodium Level 141, Potassium Level 3.5L, Chloride Level 109H, Carbon Dioxide Level 19L, Anion Gap 13, Blood Urea Nitrogen 21H, Creatinine 0.96, Estimat Glomerular Filtration Rate 80, BUN/Creatinine Ratio 22, Glucose Level 254H, Calcium Level 8.9, Corrected Calcium 9.6, Total Bilirubin 0.4, Aspartate Amino Transf (AST/SGOT) 16, Alanine Aminotransferase (ALT/SGPT) 9, Alkaline Phosphatase 76, Total Protein 6.0L, Albumin 3.1L Microbiology Assessment/Plan Assessment/Plan Admission Dx SEPSIS PNEUMONIA HYPERTENSION ATRIAL FIBRILLATION ESOPHAGEAL REFLUX CHRONIC ULCERATIVE COLITIS CHRONIC DIARRHEA WEAKNESS LEUKOCYTOSIS ANEMIA CHRONIC ANTICOAGULATION CHRONIC STAGE 2 RENAL DISEASE ACUTE SKIN TEAR RIGHT LOWER ANTERIOR LEG Assessment and Plan SEPSIS PNEUMONIA HYPERTENSION ATRIAL FIBRILLATION ESOPHAGEAL REFLUX CHRONIC ULCERATIVE COLITIS CHRONIC DIARRHEA WEAKNESS LEUKOCYTOSIS ANEMIA CHRONIC ANTICOAGULATION CHRONIC STAGE 2 RENAL DISEASE ACUTE SKIN TEAR RIGHT LOWER ANTERIOR LEG Hypokalemia SEPSIS DUE TO PNEUMONIA - Date of Exam:08/24/21 CHEST 1 VIEW, AP/PA ONLY Indication: Lower respiratory infection Right extremity PICC line tip projects over the SVC. There is cardiomegaly with pulmonary vascular congestion. There is a dual-chamber pacemaker. 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 There is infiltrate present in the right lower lung. IMPRESSION: Pulmonary venous hypertension. Right lower lobe consolidation consistent with pneumonia. - PT ADMITTED TO 4TH FLOOR, STARTED ON ROCEPHIN AND AZITHROMYCIN - MONITOR SERIAL REPEAT CXR'S - MAT PROTOCOL, OXYGENATION WITH NASAL CANULA AND CHRONIC INHALERS. HYPERTENSION RESUME HOME REGIMEN, MONITOR PRESSURES. ATRIAL FIBRILLATION WITH CHRONIC ANTICOAGULATION THERAPY - RESUME COUMADIN, RESUME RATE CONTROLLING MEDICATION. - MONITOR INR ESOPHAGEAL REFLUX - RESUME PPI THERAPY CHRONIC ULCERATIVE COLITIS WITH CHRONIC DIARRHEA - RESUME MESALAMINE, LOPERIMIDE, PROBIOTICS. WEAKNESS - WILL START PHYSICAL THERAPY. LEUKOCYTOSIS - REPEAT CBC TOMORROW. ANEMIA - MONITOR H AND H CHRONIC STAGE 2 RENAL DISEASE - RENAL DOSING OF MEDICATION IF NEEDED, MONITOR LABS. ACUTE SKIN TEAR RIGHT LOWER ANTERIOR LEG - CONSULT TO WOUND CARE Hypokalemia -Oral Potassium, repeat labs DVT PROPHYLAXIS WITH FOOT SCD'S AND COUMADIN GI PROPHYLAXIS WITH PPI THERAPY. Supervisory-Addendum Brief Verification & Attestation Participated in pt care: history, MDM, physical Personally performed: exam, history, MDM, supervision of care Care discussed with: Medical Student Procedures: n/a Results interpretation: Verified all documentation SEPSIS PNEUMONIA HYPERTENSION ATRIAL FIBRILLATION ESOPHAGEAL REFLUX CHRONIC ULCERATIVE COLITIS CHRONIC DIARRHEA WEAKNESS LEUKOCYTOSIS ANEMIA CHRONIC ANTICOAGULATION CHRONIC STAGE 2 RENAL DISEASE ACUTE SKIN TEAR RIGHT LOWER ANTERIOR LEG SEPSIS DUE TO PNEUMONIA - Date of Exam:08/24/21 CHEST 1 VIEW, AP/PA ONLY Indication: Lower respiratory infection Right extremity PICC line tip projects over the SVC. There is cardiomegaly with pulmonary vascular congestion. There is a dual-chamber pacemaker. 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 There is infiltrate present in the right lower lung. IMPRESSION: Pulmonary venous hypertension. Right lower lobe consolidation consistent with pneumonia. - REPEAT IMAGING CONFIRMS RIGHT LOER LOBE INFILTRATES CONSISTENT WITH PNEUMONIA - PT ADMITTED TO 4TH FLOOR, STARTED ON ROCEPHIN AND AZITHROMYCIN - MONITOR SERIAL REPEAT CXR'S - MAT PROTOCOL, OXYGENATION WITH NASAL CANULA AND RESTART HOME INHALERS. HYPERTENSION RESUMED HOME REGIMEN, MONITOR PRESSURES. ATRIAL FIBRILLATION WITH CHRONIC ANTICOAGULATION THERAPY - MONITOR INR, HOLD COUMADIN IF INR GREATER THAN 3.5 - RESUME RATE CONTROLLING MEDICATION. ESOPHAGEAL REFLUX - RESUMED PPI THERAPY CHRONIC ULCERATIVE COLITIS WITH CHRONIC DIARRHEA - RESUMED MESALAMINE, LOPERIMIDE, PROBIOTICS. WEAKNESS - STARTED PHYSICAL THERAPY. LEUKOCYTOSIS - REPEAT CBC TOMORROW. ANEMIA - MONITOR H AND H CHRONIC STAGE 2 RENAL DISEASE - RENAL DOSING OF MEDICATION IF NEEDED, MONITOR LABS. ACUTE SKIN TEAR RIGHT LOWER ANTERIOR LEG - CONSULT TO WOUND CARE DVT PROPHYLAXIS WITH FOOT SCD'S AND COUMADIN GI PROPHYLAXIS WITH PPI THERAPY. TEOFILO JARQUIN August 26, 2021 06:43 CODEY BARILLAS MD August 26, 2021 13:45
[2021-08-26] MEDS: RT--FLUTICASONE/SALMETEROL 113-14 (AIRDUO RespiCLICK) IH SCH ×2 (07:11→22:12)
[2021-08-26] MEDS ORDERED: KCL 20 MEQ TAB (K-DUR) PO ONE ×2 (07:30→09:46)
[2021-08-26 07:49] VITALS: BP 121/60
[2021-08-26] MEDS ORDERED: ASPIRIN E.C. 81 MG (ECOTRIN) TAB PO SCH (09:00)
--- NOTE | 2021-08-26 09:25 | Diagnostic Imaging Report ---
INDICATION: Cough and shortness of breath PA and lateral chest There are postoperative changes from CABG surgery. There is a dual-chamber pacemaker. There is infiltrate present in the right lower lung. Left lung is clear. There are no effusions. IMPRESSION: Right lower lobe infiltrates consistent with pneumonia. Dictated by: Dictated on workstation # [id number]
[2021-08-26] MEDS: FLUTICASONE NASAL SPRAY (FLONASE) 16 GM BTL NS SCH ×2 (09:38→20:53)
[2021-08-26] MEDS: DULoxetine 20 MG (CYMBALTA) CAP PO SCH ×2 (09:39→20:52)
[2021-08-26] MEDS: meTOprolol TARTRATE 25 MG (LOPRESSOR) TABLET PO SCH ×2 (09:39→17:12)
[2021-08-26] MEDS: PANTOPRAZOLE 40 MG (PROTONIX) TAB PO SCH (09:39)
[2021-08-26] MEDS: LOPERAMIDE 2 MG (IMODIUM) TABLET PO SCH ×3 (09:39→20:52)
[2021-08-26] MEDS: dilTIAZem120 MG (CARDIZEM CD) CAP PO SCH (09:40)
[2021-08-26] MEDS: MUPIROCIN 2% OINT 22 GM (BACTROBAN) TUBE TOP SCH ×2 (09:40→20:53)
--- NOTE | 2021-08-26 09:46 | Physical Therapy Evaluation ---
PT Evaluation-General Medical Diagnosis Admission Date August 24, 2021 at 22:00 Medical Diagnosis: cough/SOB Onset Date: August 24, 2021 Therapy Diagnosis Therapy Diagnosis: debility/weakness Height/Weight Height (Feet): 5 Height (Inches): 6.00 Weight (Pounds): 197 Weight (Ounces): 8.0 Precautions Precautions/Isolations: Fall Prevention, Standard Precautions Referral Physician: Jaqueline Reason for Referral: Evaluation/Treatment Medical History Pertinent Medical History: CABG, CAD, COPD, Heart Failure, HTN, [place] Current History ER secondary to SOA Reviewed History: Yes Social History Home: Single Level Current Living Status: Spouse PT Steps Into Home: 1 Prior Prior Level of Function SCALE: Activities may be completed with or without assistive devices. 6-Dvhoswggro-vkrlker completes the activity by him/herself with no assistance from a helper. 5-Set-up or Clean-up Assistance-helper sets up or cleans up; patient completes activity. [place] assists only prior to or following the activity. 4-Supervision or Touching Assistance-helper provides verbal cues and/or touching/steadying and/or contact guard assistance as patient completes activity. Assistance may be provided throughout the activity or intermittently. 3-Partial/Moderate Assistance-helper does LESS THAN HALF the effort. [place] lifts, holds or supports trunk or limbs, but provides less than half the effort. 2-Substantial/Maximal Assistance-helper does MORE THAN HALF the effort. [place] lifts or holds trunk or limbs and provides more than half the effort. 0-Bxtxknyld-fbmvzx does ALL the effort. Patient does none of the effort to complete the activity. Or, the assistance of 2 or more helpers is required for the patient to complete the activity. If activity was not attempted, code reason: 7-Patient Refused. 9-Not Applicable-not attempted and the patient did not perform the activity before the current illness, exacerbation or injury. 10-Not Attempted due to Environmental Limitations-(lack of equipment, weather restraints, etc.). 88-Not Attempted due to Medical Conditions or Safety Concerns. Bed Mobility: 6 Transfers (B,C,W/C): 6 Gait: 6 Stairs: 6 Indoor Mobility (Ambulation): Independent Stairs: Independent Prior Devices Use: None PT Evaluation-Current Subjective Patient very agreeable to participate with PT. Patient very well know to this PT. Objective Patient Orientation: Normal For Age Attachments: IV ROM/Strength ROM Lower Extremities bilateral LE WFL Strength Lower Extremities 4/5 grossly bilateral LE Integumentary/Posture Integumentary refer to nursing notes Bowel Incontinence: No Bladder Incontinence: No Posture WFL Neuromuscular (Tone, Coordination, Reflexes) slightly shaky (on steroids)/grossly intact with all Sensory Vision: Functional Hearing: Functional Transfers Lying to Sitting/Side of Bed(Q: 6 Sit to Stand (QC): 4 Chair/Sne-ic-Rhznk Xfer(QC): 4 SBA for initial evaluation Gait Does the Patient Walk?: Yes Mode of Locomotion: Walk Anticipated Mode of Locomotion: Walk Walk 10 feet (QC): 4 Walk 50 ft with 2 Turns(QC): 4 Walk 150 ft (QC): 4 Distance: 275' Gait Assistive Device: FWW Comments/Gait Description steady, functional gait sequence/noted increase SOA with SAO2 93% RA Balance Sitting Static: Normal Sitting Dynamic: Normal Standing Static: Normal Standing Dynamic: Normal Assessment/Needs 81 y.o. male, will be seen short term by skilled PT to address pulmonary function with functional mobility and strengthening to safely return to home at maximum LOF. Rehab Potential: Fair PT Fpc Goals Machine Bookkeeper Goals PT Machine Bookkeeper Goals Time Frame: Sep 03, 2021 Roll Left & Right (QC): 6 Sit to Lying (QC): 6 Lying-Sitting on Side/Bed(QC): 6 Sit to Stand (QC): 6 Chair/Umd-bj-Nzllx Xfer(QC): 6 Toilet Transfer (QC): 6 Walk 10 feet (QC): 6 Walk 50ft with 2 Turns (QC): 6 Walk 150 ft (QC): 6 PT Plan Problem List Problem List: Activity Tolerance Treatment/Plan Treatment Plan: Continue Plan of Care Treatment Plan: Education, Functional Activity Gilbert, Functional Strength, Gait, Safety, Therapeutic Exercise, Transfers Treatment Duration: Sep 03, 2021 Frequency: 6 times per week Estimated Hrs Per Day: .25 hour per day Patient and/or Family Agrees t: Yes Discharge Recommendations Therapy Discharge Recommendati: Home & Family Time/GCodes Time In: 836 Time Out: 850 Total Billed Treatment Time: 14 Total Billed Treatment 1 visit EVMod 14 min CHIDI HUANG PT August 26, 2021 09:46
[2021-08-26 11:21] VITALS: BP 145/71
[2021-08-26] MEDS: LORATADINE (CLARITIN) 10 MG TAB PO SCH (11:51)
[2021-08-26] MEDS: CATHETER FLUSH 10 ML SYR IVP SCH ×2 (11:52→20:54)
[2021-08-26 15:51] VITALS: BP 145/70
--- NOTE | 2021-08-26 16:44 | Physician Query Clarification ---
Physician Query-General Query to Physician: The medical record reflects the following clinical evidence: Clinical Indicators: initially 96% Sa02 on 1L then dropped to 86% (P/F = 213) and was increased to 4L, C/O cough S0B, nursing admission assessment with documentation of shortness of air at rest, labored breathing, also shortness of air with exertion on admission RR 18-20, weaned off 02 at approx 48 hours after admission Risk Factor(s): Sepsis, Pneumonia, no history of home 02, Treatment: Supplemental 02 up to 4L, IV ABX, Close respiratory and VS monitoring 1. Acute respiratory failure with hypoxia, present on admission, resolved 2. Other explanation of clinical findings 3. Unable to determine (no explanation for clinical findings) Please clarify and document your clinical opinion in the progress notes and discharge summary including the definitive and/or presumptive diagnosis, (suspected or probable), related to the above clinical findings. Please include clinical findings supporting your diagnosis. Melissa Greene MSN, RN Clinical Soil Sampler [phone] [email or web address] PHYSICIAN RESPONSE: Based on the clinical findings in the record, please respond to the query above on this document as an addendum. Physician Response: If you have questions please contact: Valve Machine Operator: Ext: Thank you for your time and cooperation. Clinical Soil Sampler/Valve Machine Operator This is a permanent part of the medical record MELISSA GREENE August 26, 2021 16:44
[2021-08-26] MEDS: TAMSULOSIN 0.4 MG (FLOMAX) CAP PO SCH (17:12)
[2021-08-26] MEDS: warFARin 4 MG (COUMADIN) TAB PO SCH ×2 (17:14→18:43)
[2021-08-26] MEDS ORDERED: LOSARTAN 25 MG (COZAAR) TAB PO SCH (18:00)
[2021-08-26] MEDS ORDERED: MESALAMINE DR 400 MG (ASACOL/DELZICOL) TAB/CAPS PO SCH (18:00)
[2021-08-26 19:33] VITALS: BP 147/68
[2021-08-26] MEDS: cefTRIAXone 1 GM PRE-MIX 50 ML IV SCH (20:52)
[2021-08-26] MEDS ORDERED: LACTOBACILLUS ACIDOPHILUS (PROBIOTIC) CAPSULE PO SCH (21:00)
[2021-08-26] MEDS ORDERED: AZITHROMYCIN 250 MG TAB (ZITHROMAX) PO SCH (21:00)
[2021-08-26 23:37] VITALS: BP 151/72
[2021-08-27] MEDS: RT-ALBUTEROL SULF 2.5 MG/3 ML PRE-MIX VIAL INH SCH ×2 (02:18→07:58)
[2021-08-27 04:25] VITALS: BP 142/71
[2021-08-27 05:41] LABS: BASOPHILS % (AUTO) 0 % (0-10); EOSINOPHILS % (AUTO) 0 % (0-10); HEMATOCRIT 36 % (40-54); HEMOGLOBIN 11.8 g/dL (13.3-17.7); LYMPHOCYTES # (AUTO) 0.6 10^3/uL (1.0-4.0); LYMPHOCYTES % (AUTO) 4 % (12-44); MEAN CORPUSCULAR HEMOGLOBIN 30 pg (25-34); MEAN CORPUSCULAR HGB CONC 33 g/dL (32-36); MEAN CORPUSCULAR VOLUME 89 fL (80-99); MEAN PLATELET VOLUME 9.9 fL (9.0-12.2); MONOCYTES # (AUTO) 0.5 10^3/uL (0.0-1.0); MONOCYTES % (AUTO) 3 % (0-12); NEUTROPHILS # (AUTO) 13.3 10^3/uL (1.8-7.8); NEUTROPHILS % (AUTO) 92 % (42-75); PLATELET COUNT 202 10^3/uL (130-400); WHITE BLOOD COUNT 14.6 10^3/uL (4.3-11.0)
[2021-08-27 05:52] LABS: INR 3.4 (0.8-1.4)
[2021-08-27 05:53] LABS: ALBUMIN 3.1 GM/DL (3.2-4.5); POTASSIUM 3.9 MMOL/L (3.6-5.0)
[2021-08-27 05:54] LABS: CALCIUM 8.7 MG/DL (8.5-10.1)
[2021-08-27 05:55] LABS: TOTAL PROTEIN 5.9 GM/DL (6.4-8.2)
[2021-08-27 05:57] LABS: BILIRUBIN,TOTAL 0.4 MG/DL (0.1-1.0)
[2021-08-27 05:59] LABS: CREATININE SERUM 0.81 MG/DL (0.60-1.30)
[2021-08-27 06:02] LABS: MAGNESIUM 1.9 MG/DL (1.6-2.4)
[2021-08-27] MEDS: CATHETER FLUSH 10 ML SYR IVP SCH (06:16)
[2021-08-27] MEDS ORDERED: predniSONE 10 MG TAB PO SCH (07:00)
[2021-08-27 07:50] VITALS: BP 172/82
[2021-08-27] MEDS: RT--FLUTICASONE/SALMETEROL 113-14 (AIRDUO RespiCLICK) IH SCH (07:58)
[2021-08-27] MEDS: LOPERAMIDE 2 MG (IMODIUM) TABLET PO SCH (09:23)
[2021-08-27] MEDS: PANTOPRAZOLE 40 MG (PROTONIX) TAB PO SCH (09:24)
[2021-08-27] MEDS: DULoxetine 20 MG (CYMBALTA) CAP PO SCH (09:24)
[2021-08-27] MEDS: dilTIAZem120 MG (CARDIZEM CD) CAP PO SCH (09:24)
[2021-08-27] MEDS: meTOprolol TARTRATE 25 MG (LOPRESSOR) TABLET PO SCH (09:24)
[2021-08-27] MEDS: FLUTICASONE NASAL SPRAY (FLONASE) 16 GM BTL NS SCH (09:24)
[2021-08-27] MEDS: MUPIROCIN 2% OINT 22 GM (BACTROBAN) TUBE TOP SCH (09:24)
--- NOTE | 2021-08-27 09:42 | Physical Therapy Daily Note ---
PT Daily Note-Current Subjective Pt in bed, agreeable without c/o. Denies pain. Mental Status Patient Orientation: Person, Place, Time, Situation Transfers SCALE: Activities may be completed with or without assistive devices. 1-Vdfbenuqnj-ursmxow completes the activity by him/herself with no assistance from a helper. 5-Set-up or Clean-up Assistance-helper sets up or cleans up; patient completes activity. [place] assists only prior to or following the activity. 4-Supervision or Touching Assistance-helper provides verbal cues and/or touching/steadying and/or contact guard assistance as patient completes activity. Assistance may be provided throughout the activity or intermittently. 3-Partial/Moderate Assistance-helper does LESS THAN HALF the effort. [place] lifts, holds or supports trunk or limbs, but provides less than half the effort. 2-Substantial/Maximal Assistance-helper does MORE THAN HALF the effort. [place] lifts or holds trunk or limbs and provides more than half the effort. 5-Hwnwercpq-ndvmwn does ALL the effort. Patient does none of the effort to complete the activity. Or, the assistance of 2 or more helpers is required for the patient to complete the activity. If activity was not attempted, code reason: 7-Patient Refused. 9-Not Applicable-not attempted and the patient did not perform the activity before the current illness, exacerbation or injury. 10-Not Attempted due to Environmental Limitations-(lack of equipment, weather restraints, etc.). 88-Not Attempted due to Medical Conditions or Safety Concerns. Roll Left & Right (QC): 6 Lying to Sitting/Side of Bed(Q: 6 Sit to Stand (QC): 6 Weight Bearing Right Lower Extremity: Right Full Weight Bearing Left Lower Extremity: Left Full Weight Bearing Gait Training Does the Patient Walk?: Yes Distance: 275 Walk 10 feet (QC): 6 Walk 50 ft with 2 Turns(QC): 6 Walk 150 ft (QC): 6 Gait Assistive Device: None Pt ambulated (I) without AD. Mildly SOB but sats >92% on RA. Safe, slow, steady gait. Treatments Ambulation without AD. Pt returned to up in chair with all needs met. Assessment Current Status: Good Progress Pt demonstrated safe gait without AD this date. PT Longterm Goals Longterm Goals PT Longterm Goals Time Frame: Sep 03, 2021 Roll Left & Right (QC): 6 Sit to Lying (QC): 6 Lying-Sitting on Side/Bed(QC): 6 Sit to Stand (QC): 6 Chair/Vmq-vg-Pfklp Xfer(QC): 6 Toilet Transfer (QC): 6 Walk 10 feet (QC): 6 Walk 50ft with 2 Turns (QC): 6 Walk 150 ft (QC): 6 PT Plan Problem List Problem List: Activity Tolerance, Balance, Gait Treatment/Plan Treatment Plan: Continue Plan of Care Treatment Plan: Education, Functional Activity Gilbert, Functional Strength, Gait, Safety, Therapeutic Exercise, Transfers Treatment Duration: Sep 03, 2021 Frequency: 6 times per week Estimated Hrs Per Day: .25 hour per day Patient and/or Family Agrees t: Yes Time/GCodes Time In: 0850 Time Out: 0900 Total Billed Treatment Time: 10 Total Billed Treatment 1, FA x 10' NIECY LOVELACE DPT August 27, 2021 09:42
[2021-08-27] MEDS ORDERED: AZIT250T12 PO (11:32)
[2021-08-27] MEDS ORDERED: CEPH500T PO (11:32)
--- NOTE | 2021-08-27 11:33 | Discharge Inst-Simple/Standard ---
Discharge Inst-Standard Discharge Medications New, Converted or Re-Newed RX: Transmitted to Pharmacy Patient Instructions/Follow Up Plan of Care/Instructions/FU: Please continue to take your medications as written. Please follow up with your primary care doctor to follow up this hospital stay. Have a happy anniversary on Sunday! Activity as Tolerated: Yes Discharge Diet: Cardiac Diet, Coumadin Patient Diet Return to The Hospital For: Chest pain, shortness of breath, fever, weakness, if you feel you are getting worse. CATRACHITA BRAVO MD August 27, 2021 11:33
[2021-08-27] MEDS ORDERED: PRED10TA22 PO (11:36)
[2021-08-27 11:51] VITALS: BP 179/80
--- NOTE | 2021-08-27 11:56 | Discharge Summary ---
Diagnosis/Chief Complaint Date of Admission August 24, 2021 at 22:00 Date of Discharge Discharge Date: August 27, 2021 Primary Care Steffany Parsons MD Discharge Summary Discharge Physical Exam Allergies: Coded Allergies: Sulfa (Sulfonamide Antibiotics) (Verified Allergy, Unknown, 08/31/18) montelukast (Unverified Adverse Reaction, Unknown, 06/08/16) Hallucinations per pt Vitals & I&Os Vital Signs Date Time Temp Pulse Resp B/P (MAP) Pulse Ox O2 Delivery O2 Flow Rate FiO2 08/27/21 08:00 96 Nasal Cannula 2.00 08/27/21 07:50 36.4 69 18 172/82 (112) 08/25/21 00:24 28 General Appearance: No Apparent Distress, WD/WN Respiratory: Lungs Clear, No Respiratory Distress Cardiovascular: Regular Rate, Rhythm, No Murmur Neurologic/Psychiatric: Alert, Oriented x3 Hospital Course Patient is a 81-year-old male with a past medical history of COPD who was admitted to the hospital due to acute hypoxic respiratory failure with sepsis from pneumonia and a COPD exacerbation. He was treated with IV antibiotics and steroids and did very well. He was able to be titrated off of oxygen and transition to oral treatment. He was ambulating without difficulty and requested discharge home on day of discharge. Antibiotics and steroids were sent to his pharmacy. He was advised to follow-up with his primary care doctor in the next week. Labs (last 24 hrs) Laboratory Tests 08/27/21 05:25: White Blood Count 14.6H, Red Blood Count 3.97L, Hemoglobin 11.8L, Hematocrit 36L , Mean Corpuscular Volume 89, Mean Corpuscular Hemoglobin 30, Mean Corpuscular Hemoglobin Concent 33, Red Cell Distribution Width 16.0H, Platelet Count 202, Mean Platelet Volume 9.9, Immature Granulocyte % (Auto) 1, Neutrophils (%) (Auto) 92H, Lymphocytes (%) (Auto) 4L, Monocytes (%) (Auto) 3, Eosinophils (%) (Auto) 0, Basophils (%) (Auto) 0, Neutrophils # (Auto) 13.3H, Lymphocytes # (Auto) 0.6L, Monocytes # (Auto) 0.5, Eosinophils # (Auto) 0.0, Basophils # ( Auto) 0.0, Immature Granulocyte # (Auto) 0.2H, Prothrombin Time 35.0H, INR Comment 3.4H, Sodium Level 139, Potassium Level 3.9, Chloride Level 108H, Carbon Dioxide Level 20L, Anion Gap 11, Blood Urea Nitrogen 20H, Creatinine 0.81, Estimat Glomerular Filtration Rate 90, BUN/Creatinine Ratio 25, Glucose Level 189H, Calcium Level 8.7, Corrected Calcium 9.4, Magnesium Level 1.9, Total Bilirubin 0.4, Aspartate Amino Transf (AST/SGOT) 40H, Alanine Aminotransferase (ALT/SGPT) 22, Alkaline Phosphatase 72, Total Protein 5.9L, Albumin 3.1L Microbiology 08/25/21 Urine Culture - Preliminary, Resulted Culture In Progress 08/24/21 Gram Stain - Final, Complete 08/24/21 Sputum Culture - Final, Complete Usual upper respiratory evette 08/24/21 Blood Culture - Preliminary, Resulted No growth Patient resulted labs reviewed. Pending Labs Laboratory Tests 08/27/21 05:25: White Blood Count 14.6, Red Blood Count 3.97, Hemoglobin 11.8, Hematocrit 36, Mean Corpuscular Volume 89, Mean Corpuscular Hemoglobin 30, Mean Corpuscular Hemoglobin Concent 33, Red Cell Distribution Width 16.0, Platelet Count 202, Mean Platelet Volume 9.9, Immature Granulocyte % (Auto) 1, Neutrophils (%) (Auto) 92, Lymphocytes (%) (Auto) 4, Monocytes (%) (Auto) 3, Eosinophils (%) (Auto) 0, Basophils (%) (Auto) 0, Neutrophils # (Auto) 13.3, Lymphocytes # (Auto) 0.6, Monocytes # (Auto) 0.5, Eosinophils # (Auto) 0.0, Basophils # (Auto) 0.0, Immature Granulocyte # (Auto) 0.2, Prothrombin Time 35.0, INR Comment 3.4, Sodium Level 139, Potassium Level 3.9, Chloride Level 108, Carbon Dioxide Level 20, Anion Gap 11, Blood Urea Nitrogen 20, Creatinine 0.81, Estimat Glomerular Filtration Rate 90, BUN/Creatinine Ratio 25, Glucose Level 189, Calcium Level 8.7, Corrected Calcium 9.4, Magnesium Level 1.9, Total Bilirubin 0.4, Aspartate Amino Transf (AST/SGOT) 40, Alanine Aminotransferase (ALT/SGPT) 22, Alkaline Phosphatase 72, Total Protein 5.9, Albumin 3.1 Discussion & Recommendations Discharge Planning: >30 minutes discharge planning Discharge Home Medications: Active Scripts Active Prednisone 10 Mg Tab.ds.pk 10 Mg PO DAILY Take 6 tabs(60mg)daily,decrease by 1 tab(10MG)daily. Azithromycin 250 Mg Tablet 250 Mg PO DAILY Cephalexin 500 Mg Tablet 500 Mg PO BID Reported Mupirocin 2 % Oint...g. 1 Applic TOP TID APPLY TO RIGHT LEG Osteo Bi-Flex Tablet (Glucosamine/D3/Boswellia Kathrin) 1,500 Mg-400 Unit-100 Mg Tablet 1 Each PO 1200 Warfarin Sodium 4 Mg Tablet 4 Mg PO TU,FR @1800 Warfarin Sodium 3 Mg Tablet 3 Mg PO VARELA,MO,WE,TH,SA @1800 Tylenol Extra Strength (Acetaminophen) 500 Mg Tablet 500-1,000 Mg PO Q8H PRN Cetirizine HCl 10 Mg Tablet 10 Mg PO 1200 Vitamin C (Ascorbic Acid) 500 Mg Tablet 500 Mg PO HS Furosemide 20 Mg Tablet 20 Mg PO Q72H Breo Ellipta 100-25 Mcg INH (Fluticasone/Vilanterol) 1 Each Blst.w.dev 1 Puff INH DAILY Losartan Potassium 50 Mg Tablet 25 Mg PO 1800 W/SUPPER TAKES OF A 50MG TAB Pantoprazole Sodium 40 Mg Tablet.dr 40 Mg PO DAILY Metoprolol Tartrate 25 Mg Tablet 25 Mg PO BID WITH MEALS Flomax (Tamsulosin HCl) 0.4 Mg Cap 0.4 Mg PO 1800 W/SUPPER Duloxetine HCl 20 Mg Capsule.dr 20 Mg PO Q12H Diltiazem 24Hr ER (Diltiazem HCl) 120 Mg Cap.er.24h 120 Mg PO DAILY Mesalamine 1.2 Gm Tablet.dr 2.4 Gm PO 1800 W/ DINNER TAKES 2 (1.2GM) TABS Aspirin EC (Aspirin) 81 Mg Tablet.dr 81 Mg PO Q48H Vitamin D3 (Cholecalciferol (Vitamin D3)) 125 Mcg Capsule 125 Mcg PO DAILY Imodium A-D (Loperamide HCl) 2 Mg Tablet 1 Mg PO BID WITH MEALS TAKES 1/2 (2MG) TABLET Centrum Silver Tablet (Multivit-Min/FA/Lycopene/Lut) 1 Each Tablet 1 Ea PO 1200 Probiotic (Lactobacillus Combination No.4) 1 Each Capsule 1 Ea PO HS Fluticasone Propionate 16 Gm Foley.susp 1 Foley NSEACH BID Instructions to patient/family Please see electronic discharge instructions given to patient. CATRACHITA BRAVO MD August 27, 2021 11:56
[2021-08-27] MEDS: LORATADINE (CLARITIN) 10 MG TAB PO SCH (12:18)
== END 2021-08-27 12:38 | disposition home or self-care (01) | DRG 871 ==
LOC: EDUNIT# 20:10 → ER 20:12 → 4TH 22:00
PROVIDERS: ADMIT Family Medicine; ATTEND Family Medicine
DX: A41.9 Sepsis, unspecified organism (principal); J18.9 Pneumonia, unspecified organism; J96.21 Acute and chronic respiratory failure with hypoxia; J44.0 Chronic obstructive pulmonary disease with (acute) lower respiratory infection; J44.1 Chronic obstructive pulmonary disease with (acute) exacerbation; K51.90 Ulcerative colitis, unspecified, without complications; S85.141A Laceration of anterior tibial artery, right leg, initial encounter; I48.20 Chronic atrial fibrillation, unspecified; K21.9 Gastro-esophageal reflux disease without esophagitis; K52.9 Noninfective gastroenteritis and colitis, unspecified; R53.1 Weakness; D72.829 Elevated white blood cell count, unspecified; Z20.822 Contact with and (suspected) exposure to COVID-19; D64.9 Anemia, unspecified; N18.2 Chronic kidney disease, stage 2 (mild); I12.9 Hypertensive chronic kidney disease with stage 1 through stage 4 chronic kidney disease, or unspecified chronic kidney disease; E87.6 Hypokalemia; I25.10 Atherosclerotic heart disease of native coronary artery without angina pectoris; E78.00 Pure hypercholesterolemia, unspecified; N40.0 Benign prostatic hyperplasia without lower urinary tract symptoms; M19.90 Unspecified osteoarthritis, unspecified site; Z79.01 Long term (current) use of anticoagulants; Z79.82 Long term (current) use of aspirin; Z79.899 Other long term (current) drug therapy; Z87.891 Personal history of nicotine dependence; Z95.0 Presence of cardiac pacemaker; Z95.1 Presence of aortocoronary bypass graft
CPT/HCPCS: 36415; 71045; 71046; 80053; 81000; 82550; 82553; 82805; 83605; 83735; 83880; 84145; 84484; 85007; 85025; 85027; 85379; 85610; 85652; 85730; 86141; 87040; 87070; 87088; 87205; 87636; 90715; 93005; 93041; 94640; 94664; 94761

== ENCOUNTER 2021-10-26 13:52 | Outpatient (RCR) | payer MEDICARE ==
[~2021-10-26 13:52] MED LIST changes: +AZIT250T12 PO; +CEPH500T PO; +GLUC-219 PO; +MUPI22OI2 TOP; +PRED10TA22 PO; +Vitamin D PO
== END 2021-10-29 | disposition home or self-care (01) ==
LOC: CR3 13:52
PROVIDERS: ATTEND Family Medicine
DX: Z29.8 Encounter for other specified prophylactic measures (principal)
CPT/HCPCS: 93798

== ENCOUNTER 2021-12-26 15:11 | Outpatient (RCR) | payer MEDICARE ==
[~2021-12-26 15:11] MED LIST changes: +LORA-1389 PO; -LORA-53 PO
== END 2021-12-30 | disposition home or self-care (01) ==
LOC: CR3 15:11
PROVIDERS: ATTEND Family Medicine
DX: Z29.8 Encounter for other specified prophylactic measures (principal)

== ENCOUNTER 2022-01-20 13:59 | Outpatient (RCR) | payer MEDICARE | END 2022-03-01 | disposition home or self-care (01) | LOC: CR3 13:59 | PROVIDERS: ATTEND Family Medicine | DX: Z29.8 Encounter for other specified prophylactic measures (principal) ==

== ENCOUNTER 2022-01-22 09:34 | Emergency (ER) | payer MEDICARE ==
[~2022-01-22] VITALS: Ht 168 cm; Wt 91.4 kg
--- NOTE | 2022-01-22 10:05 | ED Cough/URI ---
General Chief Complaint: Respiratory Problems Stated Complaint: COUGH, BODYACHES, WEAKNESS Nursing Triage Note: PT STATES SOB SINCE SUNDAY, WEAKNESS BUT AMBULATED TO RM 10, COUGHING MORE THAN NORMAL, SINUS DRAINAGE Source: patient, family () Exam Limitations: no limitations History of Present Illness Date Seen by Provider: Jan 22, 2022 Time Seen by Provider: 09:55 Initial Comments Patient is a very pleasant 81-year-old male with a chief complaint of allover body aches, generalized weakness over the last 2 days as well as mildly productive cough of opaque/slightly yellow sputum for 4 days. He has had a little sinus drainage. He is COVID vaccinated with 1 booster. He has been taking some cough medications at home but has continued to feel little generally weak. He denies any problems with bowel or bladder. He does have a history of ulcerative colitis on mesalamine. No black or bloody stools. No burning with urination. No rashes or swelling. He and his have not had COVID thus far. His primary care physician is Dr. Parsons. He does take medications for hypertension. His states that he does seem to get pneumonia every 6 months or so. Also neither one of them have been vaccinated for influenza yet this year. All other review of systems reviewed and negative except as stated Timing/Duration: other (2-4 days) Severity/Quality: productive cough Associated Symptoms: lightheadedness, muscle aches, nasal congestion, nasal drainage Allergies and Home Medications Allergies Coded Allergies: Sulfa (Sulfonamide Antibiotics) (Verified Allergy, Unknown, 08/31/18) montelukast (Unverified Adverse Reaction, Unknown, 06/08/16) Hallucinations per pt Patient Home Medication List Home Medication List Reviewed: Yes Acetaminophen (Tylenol Extra Strength) 500 Mg Tablet, 500-1,000 MG PO Q8H PRN for PAIN-MILD (1-4) OR TEMPATURE, (Reported) Entered as Reported by: DAYANNA CARSON on 03/28/211614 Ascorbic Acid (Vitamin C) 500 Mg Tablet, 500 MG PO HS, (Reported) Entered as Reported by: DAYANNA CARSON on 03/28/211614 Aspirin (Aspirin EC) 81 Mg Tablet., 81 MG PO Q48H, (Reported) Entered as Reported by: DAYANNA CARSON on 03/28/211614 Azithromycin (Azithromycin) 250 Mg Tablet, 250 MG PO DAILY Prescribed by: CATRACHITA BRAVO on 08/27/21 1132 Cephalexin (Cephalexin) 500 Mg Tablet, 500 MG PO BID Prescribed by: CATRACHITA BRAVO on 08/27/21 1132 Cetirizine HCl (Cetirizine HCl) 10 Mg Tablet, 10 MG PO 1200, (Reported) Entered as Reported by: DAYANNA CARSON on 03/28/21 1615 Cholecalciferol (Vitamin D3) (Vitamin D3) 125 Mcg Capsule, 125 MCG PO DAILY, (Reported) Entered as Reported by: DAYANNA CARSON on 03/28/21 161 Diltiazem HCl (Diltiazem 24Hr ER) 120 Mg Cap.er.24h, 120 MG PO DAILY, (Reported) Entered as Reported by: DAYANNA CARSON on 03/28/21 1615 Duloxetine HCl (Duloxetine HCl) 20 Mg Capsule.dr, 20 MG PO Q12H, (Reported) Entered as Reported by: DAYANNA CARSON on 03/28/21 1615 Fluticasone Propionate (Fluticasone Propionate) 16 Gm Dewey.susp, 1 SPRAY NSEACH BID, (Reported) Entered as Reported by: SARAH CLEARY on 12/08/15 1411 Fluticasone/Vilanterol (Breo Ellipta 100-25 Mcg INH) 1 Each Blst.w.dev, 1 PUFF INH DAILY, (Reported) Entered as Reported by: DAYANNA CARSON on 03/28/21 1615 Furosemide (Furosemide) 20 Mg Tablet, 20 MG PO Q72H, (Reported) Entered as Reported by: DAYANNA CARSON on 03/28/21 1615 Glucosamine/D3/Boswellia Kathrin (Osteo Bi-Flex Tablet) 1,500 Mg-400 Unit-100 Mg Tablet, 1 EACH PO 1200, (Reported) Entered as Reported by: DAYANNA CARSON on 08/25/21 1156 Lactobacillus Combination No.4 (Probiotic) 1 Each Capsule, 1 EA PO HS, (Reported) Entered as Reported by: SARAH CLEARY on 06/08/16 1245 Loperamide HCl (Imodium A-D) 2 Mg Tablet, 1 MG PO BID WITH MEALS, (Reported) Entered as Reported by: DYLAN HORTON on 09/19/18 0828 Losartan Potassium (Losartan Potassium) 50 Mg Tablet, 25 MG PO 1800 W/SUPPER, (Reported) Entered as Reported by: DAYANNA CARSON on 03/28/21 1615 Mesalamine (Mesalamine) 1.2 Gm Tablet.dr, 2.4 GM PO 1800 W/ DINNER, (Reported) Entered as Reported by: DAYANNA CARSON on 03/28/21 161 Metoprolol Tartrate (Metoprolol Tartrate) 25 Mg Tablet, 25 MG PO BID WITH MEALS, (Reported) Entered as Reported by: DAYANNA CARSON on 03/28/21 1615 Multivit-Min/FA/Lycopene/Lut (Centrum Silver Tablet) 1 Each Tablet, 1 EA PO 1200, (Reported) Entered as Reported by: DYLAN HORTON on 04/12/17 0934 Mupirocin (Mupirocin) 2 % Oint...g., 1 APPLIC TOP TID, (Reported) Entered as Reported by: DAYANNA CARSON on 08/25/21 1156 Pantoprazole Sodium (Pantoprazole Sodium) 40 Mg Tablet.dr, 40 MG PO DAILY, (Reported) Entered as Reported by: DAYANNA CARSON on 03/28/21 161 Prednisone (Prednisone) 10 Mg Tab.ds.pk, 10 MG PO DAILY Prescribed by: CATRACHITA BRAVO on 08/27/21 1136 Tamsulosin HCl (Flomax) 0.4 Mg Cap, 0.4 MG PO 1800 W/SUPPER, (Reported) Entered as Reported by: DAYANNA CARSON on 03/28/21 161 Warfarin Sodium (Warfarin Sodium) 3 Mg Tablet, 3 MG PO VARELA,MO,WE,TH,SA @1800, (Reported) Entered as Reported by: MERCEDES SHABAZZ on 08/25/21 0443 Warfarin Sodium (Warfarin Sodium) 4 Mg Tablet, 4 MG PO TU,FR @1800, (Reported) Entered as Reported by: MERCEDES SHABAZZ on 08/25/21 044 Review of Systems Review of Systems Constitutional: see HPI EENTM: nose congestion Respiratory: cough, phlegm Cardiovascular: no symptoms reported Gastrointestinal: loss of appetite Genitourinary: no symptoms reported Musculoskeletal: joint pain ("all over"), muscle pain (body aches) Skin: no symptoms reported Psychiatric/Neurological: Other (slightly light headed) All Other Systems Reviewed Negative Unless Noted: Yes Past Wvijzzh-Fdykjf-Tdivab Hx Patient Social History Tobacco Use?: Yes Smoking Status: Former Smoker Substance use?: No Alcohol Use?: No Immunizations Up To Date Tetanus Booster (TDap): Less than 5yrs PED Vaccines UTD: Yes First/Initial COVID19 Vaccinat: 12/31/20 Second COVID19 Vaccination Terence: 02/20 Third COVID19 Vaccination Date: 2020 Seasonal Allergies Seasonal Allergies: Yes Past Medical History Surgery/Hospitalization HX: HTN, HIGH LIPIDS, BPH, AFIB, GERD, PPM X3, COPD, BRIDGER PACEMAKER, STENTS, HELEN Surgeries: Yes (5 VESSEL CABG, PACEMAKER X2, STENTS X2, skin ca removal) Cardiac, CABG, Coronary Stent, Gallbladder, Pacemaker Respiratory: Yes (BI-PAP AT NIGHT; HX OF PNEUMONIA WITH VENTILATOR) Pneumonia, Sleep Apnea, COPD Currently Using CPAP: No Currently Using BIPAP: Yes Cardiac: Yes (PACER, STENTS, BYPASS; AFIB/FLUTTER; CAROTID DISEASE) Atrial Fibrillation, Coronary Artery Disease, High Cholesterol, Hypertension Neurological: No Reproductive Disorders: No Sexually Transmitted Disease: No HIV/AIDS: No Genitourinary: Yes Benign Prostatic Hyperpl Gastrointestinal: Yes (ULCERATIVE COLITIS) Colitis, Chronic Diarrhea, Polyps Musculoskeletal: Yes Arthritis Endocrine: Yes (steroid induced diabetic) HEENT: No Loss of Vision: Denies Hearing Impairment: Denies Cancer: Yes (SKIN CANCER) Skin Did You Recieve Any Treatments: Yes What Type of Treatment Did You: Surgical Intervention Psychosocial: No Integumentary: Yes (melanoma) Blood Disorders: No Adverse Reaction/Blood Tranf: No (N/A) Family Medical History Arthritis Cardiovascular disease Kidney disease G8 BROTHER Leukemia G8 BROTHER Multiple myeloma Prostate cancer 19 FATHER Heart Disease, Hypertension SOCIAL HISTORY: -HISTORY OF SMOKING, QUIT YEARS AGO -DRUGS-DENIES USE -ETOH-DENIES USE PAST SURGICAL HISTORY: -09/25/2006-PACEMAKER BY DR. JUNIOR -03/30/2008-[address] DOWLING AT [facility] -10/06/2011--CARDIAC CATH BY DR. HOYOS; NO INTERVENTION -10/2011-CHOLECYSTECTOMY BY DR. HAYS -10/17/2011--PACEMAKER REPLACED BY DR. JUNIOR -03/01/2012--COLONOSCOPY BY DR. WILLAMS. DX ULCERATIVE COLITIS -12/30/2013--CARDIAC CATH WITH STENTS X [address] 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 LYNN -04/2016--REMOVAL OF BENIGN MASS ON BACK BY DR. BENJAMIN. -05/2017--COLONOSCOPY BY DR. MCKOY -09/21/2019--PACEMAKER REPLACED BY DR. JUNIOR ADDITIONAL PMH: 08/31/2018-10/31/2018-PT HAD PNEUMONIA WITH RESPIRATORY FAILURE AND PLACED ON VENTILATOR. PT THEN WENT TO [facility] FOR REHAB FROM 10/31/2018--12/01/2018 Physical Exam Vital Signs - First Documented 01/22/22 09:40 Temp 37.9 Pulse 65 Resp 20 B/P (MAP) 122/76 (91) Pulse Ox 95 O2 Delivery Room Air Capillary Refill : Less Than 3 Seconds Height: 5'6.00" Weight: 197lbs. 8.0oz. 73.642257cs; 32.00 BMI Method:Stated General Appearance: WD/WN, no apparent distress Eyes: Bilateral Eye Normal Inspection, Bilateral Eye PERRL, Bilateral Eye EOMI HEENT: PERRL/EOMI, pharynx normal (pale), pale conjunctivae (R), pale conjunctivae (L) Neck: supple Respiratory: rhonchi (coars ronchi/upper airway noises, clear a little with cough) Cardiovascular: regular rate, rhythm, other (2+ rad pulses bilaterally) Gastrointestinal: non tender, soft Extremities: normal inspection, no pedal edema Neurologic/Psychiatric: alert, normal mood/affect, oriented x 3 Skin: normal color, warm/dry Procedures/Interventions Date of ETT Placement: Sep 21, 2018 Time of ETT Placement: 0720 Progress/Results/Core Measures Suspected Sepsis SIRS Temperature: Pulse: 65 Respiratory Rate: 20 Blood Pressure 122 /76 Mean: 91 Results/Orders Lab Results Laboratory Tests Test 01/22/22 09:50 Range/Units Influenza Type A (RT-PCR) Not Detected Not Detecte Influenza Type B (RT-PCR) Not Detected Not Detecte SARS-CoV-2 RNA (RT-PCR) Detected H Not Detecte My Orders Orders - MARCUS MOONEY MD Covid 19 Inhouse Test (10/23/22 10:05) Chest 1 View, Ap/Pa Only (01/22/22 10:05) Influenza A And B By Pcr (01/22/22 10:05) Isolation Central Supply Req (01/22/22 10:05) Acetaminophen Tablet (Tylenol Tablet) (01/22/22 10:15) Medications Given in ED Current Medications Medications Dose Ordered Sig/Sarika Route Start Time Stop Time Status Last Admin Dose Admin Acetaminophen 1,000 mg ONCE ONCE PO 01/22/22 10:15 01/22/22 10:16 DC 01/22/22 10:24 1,000 MG Vital Signs/I&O 01/22/22 01/22/22 09:40 09:51 Temp 37.9 Pulse 65 Resp 20 B/P (MAP) 122/76 (91) Pulse Ox 95 O2 Delivery Room Air Room Air Capillary Refill : Less Than 3 Seconds Blood Pressure Mean: 91 Progress Note : Time: 11:24 Progress Note Patient with a positive COVID test and a small right lower lobe infiltrate on chest x-ray. His oxygen saturations are 94 to 95% on room air. Clinically he looks great, no increased work of breathing/respiratory distress. He is not clinically septic. I did discuss monoclonal antibody therapy with the patient and advised him of the risks and benefit including EUA status. He elects to proceed with monoclonal antibody therapy. We do have it here at the hospital. IV will be placed, he will need to be monitored for about 45 minutes after the infusion. He is a patient of Dr. PARSONS, his is at the bedside. She was asking about recommendations for her, she states that they have some home tests and I recommended that she do go ahead and test at home today. She should call Dr. Parsons's office in the morning for recommendations on Paxlovid versus monoclonal for herself. She also looks well at this time. She did attend a birthday constitution party yesterday and has been out and about in the public, I recommended that she let people around her know that her is positive. Patient and his verbalized understanding of the discharge instructions. I advised him to spot check his oxygen at home periodically. Anything below 90% he needs to come back to the emergency department. He verbalized understanding. All questions are sought and answered Diagnostic Imaging Diagonstic Imaging: Xray Plain Films/CT/US/NM/MRI: chest Comments [facility]. [place], [place] NAME: YEHUDA LAW [facility] REC#: [id number] PT STATUS: REG ER : 1940 PHYSICIAN: MARCUS MOONEY MD ADMIT DATE: 01/22/22/ER Draft Date of Exam:01/22/22 CHEST 1 VIEW, AP/PA ONLY CHEST 1 VIEW, AP/PA ONLY Indication: Cough fever and body chills. Comparison: 08/26/2021 Findings: Right basilar nodular opacity is present. No pleural effusion or pneumothorax. Stable cardiomegaly with left pectoral transvenous pacemaker. CABG has been performed. Impression: 1. New nodular consolidation right lung base is most likely due to pneumonia based on patient history. Recommend followup PA and lateral chest radiographs in 4 weeks after appropriate medical management to ensure resolution and exclude underlying nodule. Dictated on workstation # [id number] Dict: 01/22/22 1043 Trans: 01/22/22 1058 [facility] [id number] Interpreted by: TAHMINA OLIVARES MD Electronically signed by: Departure Impression Primary Impression: Pneumonia due to COVID-19 virus Disposition: HOME, SELF-CARE Condition: Stable Departure-Patient Inst. Referrals: CODEY PARSONS MD (PCP/Family) Primary Care Physician Patient Instructions: COVID-19 ED Add. Discharge Instructions: Drink plenty of fluids over the next several days to stay well-hydrated Alternate Tylenol and ibuprofen every 6 hours as needed for body aches and fever. Frequent small meals throughout the day to have adequate nutrition to fight off the virus. You have been given the monoclonal antibody infusion, Bebtelovimab today to help fight off the virus. If you develop any new, concerning or emergent complaints please come back to the emergency room for reevaluation. Your should call Dr. Parsons's office first thing in the morning at 830 get her recommendations as to whether or not she should get the monoclonal antibody infusion as well. Copy Copies To 1: CODEY PARSONS MD, KATHRYN M MD Jan 22, 2022 10:05
[2022-01-22] MEDS ORDERED: ACETAMINOPHEN 500 MG TAB (TYLENOL) PO ONE (10:15)
--- NOTE | 2022-01-22 10:59 | Diagnostic Imaging Report ---
CHEST 1 VIEW, AP/PA ONLY Indication: Cough fever and body chills. Comparison: 08/26/2021 Findings: Right basilar nodular opacity is present. No pleural effusion or pneumothorax. Stable cardiomegaly with left pectoral transvenous pacemaker. CABG has been performed. Impression: 1. New nodular consolidation right lung base is most likely due to pneumonia based on patient history. Recommend followup PA and lateral chest radiographs in 4 weeks after appropriate medical management to ensure resolution and exclude underlying nodule. Dictated by: Dictated on workstation # [id number]
[2022-01-22] MEDS ORDERED: BEBTELOVIMAB 175 MG/2 ML VIAL IV ONE (11:30)
[2022-01-22 12:47] VITALS: BP 126/70
== END 2022-01-22 12:47 | disposition home or self-care (01) ==
LOC: EDUNIT# 09:34 → ER 09:35
DX: U07.1 COVID-19 (principal); J12.82 Pneumonia due to coronavirus disease 2019; G47.30 Sleep apnea, unspecified; I10 Essential (primary) hypertension; Z87.891 Personal history of nicotine dependence; Z99.89 Dependence on other enabling machines and devices; Z79.899 Other long term (current) drug therapy
CPT/HCPCS: 71045; 87636

== ENCOUNTER → 2022-02-06 | Outpatient (CLI) | payer MEDICARE ==
--- NOTE | 2022-02-06 19:25 | Diagnostic Imaging Report ---
INDICATION: Cough and pneumonia. PA and lateral chest obtained at 3:09 p.m. and compared to 01/22/2022. FINDINGS: There is post-sternotomy change and mild cardiomegaly with unchanged pacemaker device. There is unchanged central vascular congestion with chronic appearing increased interstitial markings. Patchy infiltrate in the right lung base appears similar to the previous study. There is no pneumothorax or pleural fluid. IMPRESSION: Cardiomegaly and chronic changes as described above with no change in patchy infiltrate in the right lung base. Dictated by: Dictated on workstation # [id number]
== END ==
LOC: RAD 14:40
PROVIDERS: ATTEND Family Medicine
DX: I51.7 Cardiomegaly (principal); Z98.890 Other specified postprocedural states; Z95.5 Presence of coronary angioplasty implant and graft; R91.8 Other nonspecific abnormal finding of lung field; J18.9 Pneumonia, unspecified organism
CPT/HCPCS: 71046

== ENCOUNTER → 2022-05-02 | Outpatient (RCR) | payer MEDICARE | END | disposition home or self-care (01) | PROVIDERS: ATTEND Family Medicine Sports Medicine | DX: G57.32 Lesion of lateral popliteal nerve, left lower limb (principal) ==

== ENCOUNTER 2022-05-11 10:40 | Outpatient (RCR) | payer MEDICARE | END 2022-05-11 11:12 | disposition home or self-care (01) | PROVIDERS: ATTEND Family Medicine Sports Medicine | DX: M79.605 Pain in left leg (principal); R26.89 Other abnormalities of gait and mobility ==

== ENCOUNTER 2022-07-03 14:11 | Outpatient (RCR) | payer MEDICARE ==
[~2022-07-03 14:11] MED LIST changes: -MELA1TAB20 PO; +MELA1TAB72 PO
== END 2022-07-30 | disposition home or self-care (01) ==
LOC: CR3 14:11
PROVIDERS: ATTEND Family Medicine
DX: Z29.8 Encounter for other specified prophylactic measures (principal)

== ENCOUNTER 2022-08-09 15:18 | Outpatient (RCR) | payer MEDICARE ==
[~2022-08-09 15:18] MED LIST changes: +DILT300C38 PO; -DILT300C49 PO
[2022-08-11] MEDS ORDERED: LORA-1389 PO (15:20)
[2022-08-11] MEDS ORDERED: GLUC1TAB21 PO (15:20)
[2022-08-18] MEDS ORDERED: LACT1CAP7 PO (12:56)
[2022-08-18] MEDS ORDERED: AMOX1TAB12 PO (12:56)
[2022-08-18] MEDS ORDERED: Albuterol Inhaler IH (12:56)
== END 2022-09-29 | disposition home or self-care (01) ==
LOC: CR3 15:18
PROVIDERS: ATTEND Family Medicine
DX: Z29.8 Encounter for other specified prophylactic measures (principal)

== ENCOUNTER 2022-08-11 10:19 | Inpatient (IN) | payer MEDICARE ==
[~2022-08-11] VITALS: Ht 170.1 cm; Wt 89.2 kg
[2022-08-11 10:53] LABS: BILIRUBIN,URINE NEGATIVE (NEGATIVE); CLARITY,URINE CLEAR; COLOR,URINE DARK YELLOW; GLUCOSE, URINE (UA) NEGATIVE (NEGATIVE); KETONES,URINE NEGATIVE (NEGATIVE); LEUKOCYTE ESTERASE ,URINE NEGATIVE (NEGATIVE); NITRITE,URINE NEGATIVE (NEGATIVE); PH,URINE 5.5 (5-9); PROTEIN,URINE 2+ (NEGATIVE)
[2022-08-11 10:59] LABS: BASOPHILS # (AUTO) 0.1 10^3/uL (0.0-0.1); BASOPHILS % (AUTO) 0 % (0-10); EOSINOPHILS % (AUTO) 0 % (0-10); HEMATOCRIT 43 % (40-54); HEMOGLOBIN 14.5 g/dL (13.3-17.7); LYMPHOCYTES # (AUTO) 1.1 10^3/uL (1.0-4.0); LYMPHOCYTES % (AUTO) 8 % (12-44); MEAN CORPUSCULAR HEMOGLOBIN 30 pg (25-34); MEAN CORPUSCULAR HGB CONC 34 g/dL (32-36); MEAN CORPUSCULAR VOLUME 90 fL (80-99); MEAN PLATELET VOLUME 9.6 fL (9.0-12.2); MONOCYTES # (AUTO) 0.7 10^3/uL (0.0-1.0); MONOCYTES % (AUTO) 5 % (0-12); NEUTROPHILS # (AUTO) 12.7 10^3/uL (1.8-7.8); NEUTROPHILS % (AUTO) 86 % (42-75); PLATELET COUNT 197 10^3/uL (130-400); WHITE BLOOD COUNT 14.7 10^3/uL (4.3-11.0)
[2022-08-11 11:03] LABS: BACTERIA,URINE NEGATIVE /HPF
[2022-08-11 11:03] LABS: CHLORIDE 103 MMOL/L (98-107); SODIUM 135 MMOL/L (135-145)
[2022-08-11 11:06] LABS: GLUCOSE 151 MG/DL (70-105); TOTAL PROTEIN 7.7 GM/DL (6.4-8.2)
[2022-08-11 11:07] LABS: CARBON DIOXIDE 20 MMOL/L (21-32)
[2022-08-11 11:08] LABS: BILIRUBIN,TOTAL 1.3 MG/DL (0.1-1.0)
[2022-08-11 11:09] LABS: ALKALINE PHOSPHATASE 102 U/L (40-136)
[2022-08-11 11:10] LABS: CREATININE SERUM 1.23 MG/DL (0.60-1.30); GFR ESTIMATED 59
[2022-08-11 11:11] LABS: BUN/CREATININE RATIO 13
[2022-08-11 11:12] LABS: ALANINE AMINOTRANSFERASE 15 U/L (0-55)
--- NOTE | 2022-08-11 11:16 | ED Respiratory ---
General Chief Complaint: Respiratory Problems Stated Complaint: SOB | COUGH Nursing Triage Note: ARRIVED VIA WC TO ROOM 09 WITH COMPLAINTS OF SOA STARTING YESTERDAY. Source: patient Exam Limitations: no limitations History of Present Illness Date Seen by Provider: August 11, 2022 Time Seen by Provider: 10:56 Initial Comments 82-year-old male with history of pneumonia, stating he gets pneumonia couple times a year presents for shortness of breath and decreased appetite. Symptoms started yesterday throughout the day and have worsened this morning. No fevers. He has a productive cough. He states he is "pacemaker was bothering me" last night, stating he had some discomfort over his pacemaker area in his left anterior chest. It has improved but still has some mild discomfort in that area. All other systems reviewed and negative except documented per HPI. Voice recognition software was used to help create this chart Allergies and Home Medications Allergies Coded Allergies: Sulfa (Sulfonamide Antibiotics) (Verified Allergy, Unknown, 08/31/18) montelukast (Unverified Adverse Reaction, Unknown, 06/08/16) Hallucinations per pt Patient Home Medication List Home Medication List Reviewed: Yes Acetaminophen (Tylenol Extra Strength) 500 Mg Tablet, 500-1,000 MG PO Q8H PRN for PAIN-MILD (1-4) OR TEMPATURE, (Reported) Entered as Reported by: DAYANNA CARSON on 03/28/211614 Last Action: Held Ascorbic Acid (Vitamin C) 500 Mg Tablet, 500 MG PO DAILY, (Reported) Entered as Reported by: DAYANNA CARSON on 03/28/211614 Last Action: Held Aspirin (Aspirin EC) 81 Mg Tablet., 81 MG PO Q48H, (Reported) Entered as Reported by: DAYANNA CARSON on 03/28/211614 Last Action: Continued Cholecalciferol (Vitamin D3) (Vitamin D3) 125 Mcg Capsule, 125 MCG PO DAILY, (Reported) Entered as Reported by: DAYANNA CARSON on 03/28/211614 Last Action: Held Diltiazem HCl (Diltiazem 24Hr ER) 120 Mg Cap.er.24h, 120 MG PO DAILY, (Reported) Entered as Reported by: DAYANNA CARSON on 03/28/211614 Last Action: Continued Duloxetine HCl (Duloxetine HCl) 20 Mg Capsule., 20 MG PO Q12H, (Reported) Entered as Reported by: DAYANNA CARSON on 03/28/211614 Last Action: Continued Fluticasone Propionate (Fluticasone Propionate) 50 Mcg/Actuation [place].susp, 1 SPRAY NSEACH BID PRN for CONGESTION, (Reported) Entered as Reported by: SARAH CLEARY on 12/08/15 1411 Last Action: Held Fluticasone/Vilanterol (Breo Ellipta 100-25 Mcg INH) 1 Each Blst.w.dev, 1 PUFF INH DAILY, (Reported) Entered as Reported by: DAYANNA CARSON on 03/28/211614 Last Action: Continued Furosemide (Furosemide) 20 Mg Tablet, 20 MG PO Q72H, (Reported) Entered as Reported by: DAYANNA CARSON on 03/28/211614 Last Action: Held Gluc Trevino/Chondro Trevino A/Vit C/Mn (Glucosamine Chondroitin Tab) 750 Mg-600 Mg-55 Mg- 5 Mg Tablet, 1 EACH PO 1200, (Reported) Entered as Reported by: DAAYNNA CARSON on 08/11/22 152 Last Action: Held Lactobacillus Combination No.4 (Probiotic) 1 Each Capsule, 1 EA PO HS, (Reported) Entered as Reported by: SARAH CLEARY on 06/08/16 1245 Last Action: Held Loperamide HCl (Imodium A-D) 2 Mg Tablet, 1 MG PO BID WITH MEALS, (Reported) Entered as Reported by: DYLAN HORTON on 09/19/18 0828 Last Action: Held Loratadine (Loratadine) 10 Mg Tab.rapdis, 10 MG PO 1800 W/SUPPER, (Reported) Entered as Reported by: DAYANNA CARSON on 08/11/22 152 Last Action: Continued Losartan Potassium (Losartan Potassium) 50 Mg Tablet, 25 MG PO 1800 W/SUPPER, (Reported) Entered as Reported by: DAYANNA CARSON on 03/28/211614 Last Action: Continued Mesalamine (Mesalamine) 1.2 Gm Tablet.dr, 2.4 GM PO 1800 W/ DINNER, (Reported) Entered as Reported by: DAYANNA CARSON on 03/28/211614 Last Action: Converted Metoprolol Tartrate (Metoprolol Tartrate) 25 Mg Tablet, 25 MG PO BID WITH MEALS, (Reported) Entered as Reported by: DAYANNA CARSON on 03/28/211614 Last Action: Continued Multivit-Min/FA/Lycopene/Lut (Centrum Silver Tablet) 1 Each Tablet, 1 EA PO 1200, (Reported) Entered as Reported by: DYLAN HORTON on 04/12/17 0918 Last Action: Held Pantoprazole Sodium (Pantoprazole Sodium) 40 Mg Tablet.dr, 40 MG PO DAILY, (Reported) Entered as Reported by: DAYANNA CARSON on 03/28/211614 Last Action: Continued Tamsulosin HCl (Flomax) 0.4 Mg Cap, 0.4 MG PO 1800 W/SUPPER, (Reported) Entered as Reported by: DAYANNA CARSON on 03/28/211614 Last Action: Continued Warfarin Sodium (Warfarin Sodium) 3 Mg Tablet, 3 MG PO UD, (Reported) Entered as Reported by: MERCEDES SHABAZZ on 08/25/21442 Last Action: Continued Warfarin Sodium (Warfarin Sodium) 4 Mg Tablet, 4 MG PO UD, (Reported) Entered as Reported by: MERCEDES SHABAZZ on 08/25/21442 Last Action: Continued Discontinued Medications Azithromycin (Azithromycin) 250 Mg Tablet, 250 MG PO DAILY Discontinued Reason: No Longer Taking Prescribed by: CATRACHITA BRAVO on 08/27/21 113 Last Action: Discontinued Cephalexin (Cephalexin) 500 Mg Tablet, 500 MG PO BID Discontinued Reason: No Longer Taking Prescribed by: CATRACHITA BRAVO on 08/27/21 113 Last Action: Discontinued Cetirizine HCl (Cetirizine HCl) 10 Mg Tablet, 10 MG PO 1200, (Reported) Discontinued Reason: No Longer Taking Entered as Reported by: DAYANNA CARSON on 03/28/211614 Last Action: Discontinued Glucosamine/D3/Boswellia Kathrin (Osteo Bi-Flex Tablet) 1,500 Mg-400 Unit-100 Mg Tablet, 1 EACH PO 1200, (Reported) Discontinued Reason: Prescription changed Entered as Reported by: DAYANNA CARSON on 08/25/21 115 Mupirocin (Mupirocin) 2 % Oint...g., 1 APPLIC TOP TID, (Reported) Discontinued Reason: No Longer Taking Entered as Reported by: DAYANNA CARSON on 08/25/21 1156 Last Action: Discontinued Prednisone (Prednisone) 10 Mg Tab.ds.pk, 10 MG PO DAILY Discontinued Reason: No Longer Taking Prescribed by: CATRACHITA BRAVO on 08/27/21 1136 Last Action: Discontinued Review of Systems Review of Systems Constitutional: see HPI Past Roasyro-Ufgjbv-Tybhha Hx Patient Social History Tobacco Use?: Yes Smoking Status: Former Smoker Substance use?: No Alcohol Use?: No Immunizations Up To Date Tetanus Booster (TDap): Less than 5yrs PED Vaccines UTD: Yes First/Initial COVID19 Vaccinat: 12/31/20 Second COVID19 Vaccination Terence: 02/20 Third COVID19 Vaccination Date: 2020 COVID19 Vaccine Automation And Controls Manager: UNKNOWN Seasonal Allergies Seasonal Allergies: Yes Past Medical History Surgery/Hospitalization HX: HTN, HIGH LIPIDS, BPH, AFIB, GERD, PPM X3, COPD, BRIDGER PACEMAKER, STENTS, HELEN Surgeries: Yes (5 VESSEL CABG, PACEMAKER X2, STENTS X2, skin ca removal) Cardiac, CABG, Coronary Stent, Gallbladder, Pacemaker Respiratory: Yes (BI-PAP AT NIGHT; HX OF PNEUMONIA WITH VENTILATOR) Pneumonia, Sleep Apnea, COPD Currently Using CPAP: No Currently Using BIPAP: Yes Cardiac: Yes (PACER, STENTS, BYPASS; AFIB/FLUTTER; CAROTID DISEASE) Atrial Fibrillation, Coronary Artery Disease, High Cholesterol, Hypertension Neurological: No Reproductive Disorders: No Sexually Transmitted Disease: No HIV/AIDS: No Genitourinary: Yes Benign Prostatic Hyperpl Gastrointestinal: Yes (ULCERATIVE COLITIS) Colitis, Chronic Diarrhea, Polyps Musculoskeletal: Yes Arthritis Endocrine: Yes (steroid induced diabetic) HEENT: No Loss of Vision: Denies Hearing Impairment: Denies Cancer: Yes (SKIN CANCER) Skin Did You Recieve Any Treatments: Yes What Type of Treatment Did You: Surgical Intervention Psychosocial: No Integumentary: Yes (melanoma) Blood Disorders: No Adverse Reaction/Blood Tranf: No (N/A) Family Medical History Reviewed Nursing Family Hx Arthritis Cardiovascular disease Kidney disease G8 BROTHER Leukemia G8 BROTHER Multiple myeloma Prostate cancer 19 FATHER Heart Disease, Hypertension SOCIAL HISTORY: -HISTORY OF SMOKING, QUIT YEARS AGO -DRUGS-DENIES USE -ETOH-DENIES USE PAST SURGICAL HISTORY: -09/25/2006-PACEMAKER BY DR. JUNIOR -03/30/2008-[address] DOWLING [facility] -10/06/2011--CARDIAC CATH BY DR. HOYOS; NO INTERVENTION -10/2011-[address]CY[address]Y BY DR. HAYS -10/17/2011--PACEMAKER REPLACED BY DR. JUNIOR -03/01/2012--COLONOSCOPY BY DR. WILLAMS. DX ULCERATIVE COLITIS -12/30/2013--CARDIAC CATH WITH STENTS X [address] 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 LYNN -04/2016--REMOVAL OF BENIGN MASS ON BACK BY DR. BENJAMIN. -05/2017--COLONOSCOPY BY DR. MCKOY -09/21/2019--PACEMAKER REPLACED BY DR. JUNIOR ADDITIONAL PMH: 08/31/2018-10/31/2018-PT HAD PNEUMONIA WITH RESPIRATORY FAILURE AND PLACED ON VENTILATOR. PT THEN WENT TO [facility] FOR REHAB FROM 10/31/2018--12/01/2018 Physical Exam Vital Signs - First Documented 08/11/22 10:25 Temp 36.9 Pulse 105 Resp 18 B/P (MAP) 136/82 (100) Pulse Ox 91 O2 Delivery Room Air Capillary Refill : Less Than 3 Seconds Height: 5'6.00" Weight: 197lbs. 8.0oz. 73.283857qg; 29.00 BMI Method:Stated General Appearance: WD/WN, no apparent distress HEENT: normal ENT inspection, pharynx normal Neck: full range of motion, normal inspection Respiratory: chest non-tender, no respiratory distress, no accessory muscle use, rhonchi (Left greater than right with bilateral) Cardiovascular: regular rate, rhythm, no murmur, other (Pacemaker left anterior chest. No palpable tenderness. No skin changes.) Gastrointestinal: normal bowel sounds, non tender, soft, no organomegaly Extremities: normal range of motion, non-tender, normal inspection Neurologic/Psychiatric: alert, oriented x 3 Skin: normal color, warm/dry Focused Exam Lactate Level 08/11/22 10:35: Lactic Acid Level 2.30*H 08/11/22 12:55: Lactic Acid Level 1.59 Lactic Acid Level Laboratory Tests Test 08/11/22 10:35 08/11/22 12:55 Lactic Acid Level 2.30 MMOL/L (0.50-2.00) *H 1.59 MMOL/L (0.50-2.00) Procedures/Interventions Date of ETT Placement: Sep 21, 2018 Time of ETT Placement: 0720 Progress/Results/Core Measures Suspected Sepsis SIRS Temperature: Pulse: 105 Respiratory Rate: 18 Laboratory Tests 08/11/22 10:35: White Blood Count 14.7H Blood Pressure 136 /82 Mean: 100 08/11/22 10:35: Lactic Acid Level 2.30*H 08/11/22 12:55: Lactic Acid Level 1.59 Laboratory Tests 08/11/22 10:35: Creatinine 1.23, Platelet Count 197, Total Bilirubin 1.3H Results/Orders Lab Results Laboratory Tests Test 08/11/22 10:35 08/11/22 10:45 08/11/22 12:55 Range/Units White Blood Count 14.7 H 4.3-11.0 10^3/uL Red Blood Count 4.77 4.30-5.52 10^6/uL Hemoglobin 14.5 13.3-17.7 g/dL Hematocrit 43 40-54 % Mean Corpuscular Volume 90 80-99 fL Mean Corpuscular Hemoglobin 30 25-34 pg Mean Corpuscular Hemoglobin Concent 34 32-36 g/dL Red Cell Distribution Width 14.4 10.0-14.5 % Platelet Count 197 130-400 10^3/uL Mean Platelet Volume 9.6 9.0-12.2 fL Immature Granulocyte % (Auto) 1 % Neutrophils (%) (Auto) 86 H 42-75 % Lymphocytes (%) (Auto) 8 L 12-44 % Monocytes (%) (Auto) 5 0-12 % Eosinophils (%) (Auto) 0 0-10 % Basophils (%) (Auto) 0 0-10 % Neutrophils # (Auto) 12.7 H 1.8-7.8 10^3/uL Lymphocytes # (Auto) 1.1 1.0-4.0 10^3/uL Monocytes # (Auto) 0.7 0.0-1.0 10^3/uL Eosinophils # (Auto) 0.0 0.0-0.3 10^3/uL Basophils # (Auto) 0.1 0.0-0.1 10^3/uL Immature Granulocyte # (Auto) 0.1 0.0-0.1 10^3/uL Neutrophils % (Manual) 88 % Lymphocytes % (Manual) 9 % Monocytes % (Manual) 2 % Eosinophils % (Manual) 1 % Basophils % (Manual) 0 % Band Neutrophils 0 % Blood Morphology Comment NORMAL Sodium Level 135 135-145 MMOL/L Potassium Level 4.0 3.6-5.0 MMOL/L Chloride Level 103 98-107 MMOL/L Carbon Dioxide Level 20 L 21-32 MMOL/L Anion Gap 12 5-14 MMOL/L Blood Urea Nitrogen 16 7-18 MG/DL Creatinine 1.23 0.60-1.30 MG/DL Estimat Glomerular Filtration Rate 59 BUN/Creatinine Ratio 13 Glucose Level 151 H 70-105 MG/DL Lactic Acid Level 2.30 *H 1.59 0.50-2.00 MMOL/L Calcium Level 9.0 8.5-10.1 MG/DL Corrected Calcium 9.0 8.5-10.1 MG/DL Total Bilirubin 1.3 H 0.1-1.0 MG/DL Aspartate Amino Transf (AST/SGOT) 21 5-34 U/L Alanine Aminotransferase (ALT/SGPT) 15 0-55 U/L Alkaline Phosphatase 102 40-136 U/L Troponin I < 0.028 <0.028 NG/ML Total Protein 7.7 6.4-8.2 GM/DL Albumin 4.0 3.2-4.5 GM/DL SARS-CoV-2 RNA (RT-PCR) Not Detected Not Detecte Urine Color DARK YELLOW Urine Clarity CLEAR Urine pH 5.5 5-9 Urine Specific Kindred 1.025 H 1.016-1.022 Urine Protein 2+ H NEGATIVE Urine Glucose (UA) NEGATIVE NEGATIVE Urine Ketones NEGATIVE NEGATIVE Urine Nitrite NEGATIVE NEGATIVE Urine Bilirubin NEGATIVE NEGATIVE Urine Urobilinogen 0.2 < = 1.0 MG/DL Urine Leukocyte Esterase NEGATIVE NEGATIVE Urine RBC (Auto) NEGATIVE NEGATIVE Urine RBC NONE /HPF Urine WBC NONE /HPF Urine Squamous Epithelial Cells NONE /HPF Urine Crystals NONE /LPF Urine Bacteria NEGATIVE /HPF Urine Casts NONE /LPF Urine Mucus NEGATIVE /LPF Urine Culture Indicated NO My Orders Orders - YOVANNY AREVALO DO Cbc With Automated Diff (08/11/22 10:33) Comprehensive Metabolic Panel (08/11/22 10:33) Blood Culture (08/11/22 10:33) Urinalysis (08/11/22 10:33) Chest 1 View, Ap/Pa Only (08/11/22 10:33) Ed Iv/Invasive Line Start (08/11/22 10:33) Troponin I [place] (08/11/22 10:33) Vital Signs Adult Sepsis Patie Q15M (08/11/22 10:33) Lactic Acid Analyzer (08/11/22 10:33) Covid 19 Inhouse Test (08/11/22 10:33) Manual Differential (08/11/22 10:35) Ekg Tracing (08/11/22 11:16) Ns Iv 500 Ml (Sodium Chloride 0.9%) (08/11/22 11:27) Ceftriaxone Iv/Im (Rocephin Iv/Im) (08/11/22 11:30) Ct Chest W (08/11/22 11:53) Iohexol Injection (Omnipaque 350 Mg/Ml 1 (08/11/22 12:00) Received Contrast (Hold Metformin- Contr (08/11/22 12:00) Ns (Ivpb) (Sodium Chloride 0.9% Ivpb Bag (08/11/22 12:00) Azithromycin Injection (Zithromax Inject (08/11/22 13:30) Ed Admission (Communication) (08/11/22 13:32) Sputum Culture (08/11/22 13:33) Medications Given in ED Current Medications Medications Dose Ordered Sig/Sarika Route Start Time Stop Time Status Last Admin Dose Admin Azithromycin 500 mg/Sodium Chloride 250 ml @ 250 mls/hr ONCE ONCE IV 08/11/22 13:30 08/11/22 14:29 DC 08/11/22 14:03 250 MLS/HR Ceftriaxone Sodium 1000 mg/ Sodium Chloride 50 ml @ 100 mls/hr ONCE ONCE IV 08/11/22 11:30 08/11/22 11:59 DC 08/11/22 11:58 100 MLS/HR Iohexol 75 ml ONCE ONCE IV 08/11/22 12:00 08/11/22 12:01 DC 08/11/22 12:08 74 ML Sodium Chloride 100 ml ONCE ONCE IV 08/11/22 12:00 08/11/22 12:01 DC 08/11/22 12:09 80 ML Vital Signs/I&O 08/11/22 08/11/22 10:25 12:58 Temp 36.9 37.3 Pulse 105 Resp 18 B/P (MAP) 136/82 (100) Pulse Ox 91 O2 Delivery Room Air Capillary Refill : Less Than 3 Seconds Blood Pressure Mean: 100 ECG Comment Twelve-lead EKG shows atrial fibrillation rate of 85 bpm. Normal intervals outside of NV interval. Normal axis. There are diffuse T wave inversions in the 2 3 aVF and throughout the precordial leads. These are unchanged from 2020, 2021 comparison EKGs. No STEMI. Diagnostic Imaging Comments IMPRESSION: Multiple pulmonary lesions which may represent an infectious process or cancer. Recommend correlation with history of cancer, white blood cell count, fever, cough, and inflammatory markers. If there is clinical suggestion of an infectious process then a follow-up CT after completion of appropriate therapy is recommended for surveillance. Can otherwise consider a lung biopsy if clinically appropriate. Right perihilar consolidation involving the right upper lobe and the superior segment of the right lower lobe with spiculated margins measuring 5.2 x 2.9 x 8.6 cm. Cavitary lesion in the right lower lobe measuring 3.9 x 3.6 cm. Cavitary lesion in the left lower lobe measuring 3.5 x 1.8 cm. Scattered bilateral tree in bud and airspace opacities. Multiple additional subcentimeter pulmonary nodules. Emphysema. Nonspecific 1.2 cm right adrenal nodule. Recommend attention on follow-up exam. Dictated by: Dictated on workstation # [id number] Critical Care Note Critical Care Total Time (minutes) 60 Departure Communication (Admissions) Patient slightly hypoxic 8788% on room air. Does not typically require oxygen. Started on 2 L oxygen nasal cannula. Has clear cavitary pneumonia on x-ray. Suspicious looking area in his right upper lobe on chest x-ray according to radiology and my independent review. CT scan ordered showing cavitary pneumonia likely and possible cancer versus infectious process. He started on broad- spectrum antibiotics with Zithromax and Rocephin. His lactate is slightly elevated, given some IV fluids and pending repeat. We admitted to the hospital. Dr. Verdugo accepts. He will write acute orders. Impression Primary Impression: Cavitary pneumonia Additional Impression: Hypoxia Disposition: ADMITTED INPATIENT Condition: Stable Departure-Patient Inst. Referrals: CODEY BARILLAS MD (PCP/Family) Primary Care Physician YOVANNY AREVALO DO August 11, 2022 11:16
[2022-08-11 11:18] LABS: BAND NEUTROPHILS 0 %; BASOPHILS % (MANUAL) 0 %; EOSINOPHILS % (MANUAL) 1 %; LYMPHOCYTES % (MANUAL) 9 %; MONOCYTES % (MANUAL) 2 %; NEUTROPHILS % (MANUAL) 88 %; RBC MORPH NORMAL
[2022-08-11] MEDS ORDERED: NS IV 500 ML 500 ML IV STA (11:27)
--- NOTE | 2022-08-11 11:28 | Diagnostic Imaging Report ---
INDICATION: dyspnea, cough. TECHNIQUE: Single-view chest at 11:15 a.m. CORRELATION STUDY: 02/06/2022. FINDINGS: Left-sided pacemaker. Post-sternotomy and coronary bypass changes. Heart size is enlarged. There is abnormal mass-like opacity in the right suprahilar region measuring approximately 5.3 cm. Question cavitary lesion in the right lung base, approximately 4.7 cm. Small right perhaps trace left pleural effusion. IMPRESSION: 1. Abnormal mass in the right suprahilar region, worrisome for potential neoplasm until proven otherwise. 2. Question additional cavitary mass at the right lung base. 3. Cardiac enlargement with borderline vasculature. 4. CT chest is recommended. Dictated by: Dictated on workstation # [id number]
[2022-08-11] MEDS ORDERED: cefTRIAXone IV/IM 1,000 MG in NS (IVPB) 50 ML IV ONE (11:30)
[2022-08-11] MEDS ORDERED: HOLD METFORMIN - RECEIVED CONTRAST 20 ML VIAL IV SCH (12:00)
[2022-08-11] MEDS ORDERED: IOHEXOL 350 MG/ML 100 ML (OMNIPAQUE 350) VIAL IV ONE (12:00)
[2022-08-11] MEDS ORDERED: NS 100 ML (IVPB) BAG IV ONE (12:00)
--- NOTE | 2022-08-11 13:06 | Diagnostic Imaging Report ---
PROCEDURE: CT chest with contrast only. TECHNIQUE: Multiple contiguous axial images were obtained through the chest after administration of intravenous contrast. Auto Exposure Controls were utilized during the CT exam to meet ALARA standards for radiation dose reduction. INDICATION: Abnormal chest radiograph COMPARISON: Chest radiograph 08/11/2022 FINDINGS: Scattered centrilobular and paraseptal emphysema. Round consolidation within the right upper lobe in the perihilar region with spiculated margins measuring 2.9 x 5.2 cm. The mass extends inferiorly into the superior segment of the right lower lobe also in the perihilar region. The craniocaudal dimension measures 8.6 cm. A cavitary lesion within the right lower lobe with nodular margin measuring 3.9 x 3.6 cm. Cavitary lesion in the left lower lobe measuring 3.5 x 1.8 cm. 0.8 cm pulmonary nodule in the right upper lobe (image 68 series 3). Other additional similar pulmonary nodules are noted. Scattered tree-in-bud opacities and groundglass opacities throughout both lungs. No pleural effusion or pneumothorax. Multiple nonspecific subcentimeter mediastinal and hilar lymph nodes are noted with the largest left paratracheal mediastinal lymph node measuring 1.5 x 1.0 cm. The heart is enlarged. The aorta and pulmonary artery are normal in caliber. The abdomen demonstrates a 1.2 cm nonspecific right adrenal gland nodule. The osseous structures demonstrate no lytic or sclerotic bone lesions. IMPRESSION: Multiple pulmonary lesions which may represent an infectious process or cancer. Recommend correlation with history of cancer, white blood cell count, fever, cough, and inflammatory markers. If there is clinical suggestion of an infectious process then a follow-up CT after completion of appropriate therapy is recommended for surveillance. Can otherwise consider a lung biopsy if clinically appropriate. Right perihilar consolidation involving the right upper lobe and the superior segment of the right lower lobe with spiculated margins measuring 5.2 x 2.9 x 8.6 cm. Cavitary lesion in the right lower lobe measuring 3.9 x 3.6 cm. Cavitary lesion in the left lower lobe measuring 3.5 x 1.8 cm. Scattered bilateral tree in bud and airspace opacities. Multiple additional subcentimeter pulmonary nodules. Emphysema. Nonspecific 1.2 cm right adrenal nodule. Recommend attention on follow-up exam. Dictated by: Dictated on workstation # [id number]
[2022-08-11] MEDS ORDERED: AZITHROMYCIN INJECTION 500 MG in NS (IVPB) 250 ML IV ONE (13:30)
[2022-08-11 14:15] VITALS: BP 157/83
[2022-08-11] MEDS ORDERED: ONDANSETRON 4 MG/2 ML (SDV) Z0FRAN IV PRN (15:00)
[2022-08-11] MEDS ORDERED: ANTACID SUSP 30 ML UDC (MYLANTA) PO PRN (15:00)
[2022-08-11] MEDS ORDERED: CALCIUM CARBONATE 500 MG (TUMS) TAB.CHEW PO PRN (15:00)
[2022-08-11] MEDS ORDERED: ACETAMINOPHEN 325 MG TABLET PO PRN (15:00)
[2022-08-11] MEDS ORDERED: polyethylene glycoL POWDER 17 GM (MIRALAX) PACK PO PRN (15:00)
[2022-08-11] MEDS ORDERED: ONDANSETRON 4 MG (ZOFRAN) ORAL DISSOLVE TAB PO PRN (15:00)
[2022-08-11] MEDS ORDERED: BISACODYL 10 MG SUPP (DULCOLAX) PR PRN (15:00)
[2022-08-11] MEDS ORDERED: LACTULOSE SYRUP 10GM/15ML (ENULOSE) 30ML UDC PO PRN (15:00)
[2022-08-11] MEDS ORDERED: NS IV 500 ML 500 ML IV PRN (15:00)
[2022-08-11] MEDS ORDERED: MILK OF MAGNESIA 400 MG/5 ML 30 ML UDC PO PRN (15:00)
[2022-08-11] MEDS ORDERED: MELATONIN 3 MG TABLET PO PRN (15:00)
[2022-08-11 15:20] VITALS: BP 146/83
[2022-08-11] MEDS ORDERED: LORA-1389 PO (15:20)
[2022-08-11] MEDS ORDERED: GLUC1TAB21 PO (15:20)
[2022-08-11] MEDS ORDERED: RT-ALBUTEROL HFA 8.5 GM INHALER IH PRN (15:30)
[2022-08-11] MEDS: AMPICILLIN/SULBACTAM INJECTION 3 GM in NS (IVPB) 100 ML IV SCH ×2 (16:09→21:03)
[2022-08-11 17:22] VITALS: BP 142/65
[2022-08-11 17:29] LABS: INR 1.5 (0.8-1.4)
[2022-08-11] MEDS ORDERED: warFARin 3 MG (COUMADIN) TAB PO SCH (18:00)
[2022-08-11] MEDS: meTOprolol TARTRATE 25 MG (LOPRESSOR) TABLET PO SCH (18:41)
[2022-08-11] MEDS: TAMSULOSIN 0.4 MG (FLOMAX) CAP PO SCH (18:41)
[2022-08-11] MEDS: LORATADINE (CLARITIN) 10 MG TAB PO SCH (18:41)
[2022-08-11] MEDS: LOSARTAN 50 MG (COZAAR) TAB PO SCH (18:41)
[2022-08-11] MEDS: RT-ALBUTEROL HFA 8.5 GM INHALER IH SCH (19:12)
[2022-08-11 19:54] VITALS: BP 130/57
[2022-08-11] MEDS ORDERED: ENOXAPARIN 40 MG/0.4 ML (LOVENOX) SYR SC SCH (21:00)
[2022-08-11] MEDS: ASPIRIN E.C. 81 MG (ECOTRIN) TAB PO SCH (21:03)
[2022-08-11] MEDS: DULoxetine 20 MG (CYMBALTA) CAP PO SCH (21:03)
[2022-08-11] MEDS: SENNOSIDES 8.6 MG (SENOKOT) TAB PO SCH (21:03)
[2022-08-11] MEDS: DOCUSATE SODIUM 100 MG (COLACE) CAP PO SCH (21:03)
[2022-08-11 23:47] VITALS: BP 108/58
[2022-08-12] MEDS: RT-ALBUTEROL HFA 8.5 GM INHALER IH SCH ×4 (03:01→20:15)
[2022-08-12] MEDS: AMPICILLIN/SULBACTAM INJECTION 3 GM in NS (IVPB) 100 ML IV SCH ×4 (04:06→21:33)
[2022-08-12 04:07] VITALS: BP 110/50
[2022-08-12 05:23] LABS: BASOPHILS % (AUTO) 0 % (0-10); EOSINOPHILS # (AUTO) 0.1 10^3/uL (0.0-0.3); EOSINOPHILS % (AUTO) 1 % (0-10); HEMATOCRIT 38 % (40-54); HEMOGLOBIN 12.5 g/dL (13.3-17.7); LYMPHOCYTES # (AUTO) 1.8 10^3/uL (1.0-4.0); LYMPHOCYTES % (AUTO) 15 % (12-44); MEAN CORPUSCULAR HEMOGLOBIN 30 pg (25-34); MEAN CORPUSCULAR HGB CONC 33 g/dL (32-36); MEAN CORPUSCULAR VOLUME 91 fL (80-99); MEAN PLATELET VOLUME 9.4 fL (9.0-12.2); MONOCYTES # (AUTO) 0.8 10^3/uL (0.0-1.0); MONOCYTES % (AUTO) 7 % (0-12); NEUTROPHILS # (AUTO) 9.2 10^3/uL (1.8-7.8); NEUTROPHILS % (AUTO) 77 % (42-75); PLATELET COUNT 165 10^3/uL (130-400)
[2022-08-12 05:40] LABS: CALCIUM 8.8 MG/DL (8.5-10.1); CREATININE SERUM 1.16 MG/DL (0.60-1.30); MAGNESIUM 1.8 MG/DL (1.6-2.4); POTASSIUM 3.9 MMOL/L (3.6-5.0)
[2022-08-12] MEDS: POTASSIUM CL 10MEQ/50ML IVPB 50 ML IV SCH (06:01)
[2022-08-12] MEDS: MAGNESIUM 1 GM/100 ML IVPB 100 ML IV SCH ×3 (06:01→06:17)
[2022-08-12] MEDS: KCL 20 MEQ TAB (K-DUR) PO SCH (06:02)
[2022-08-12] MEDS: FLUTICASONE/VILANTEROL 100 MCG 14'S (BREO) IH SCH (06:49)
[2022-08-12 07:03] VITALS: BP 113/56
[2022-08-12] MEDS ORDERED: KCL 20 MEQ TAB (K-DUR) PO ONE (09:00)
[2022-08-12] MEDS ORDERED: PATIENT MAY USE OWN MED,SINGLE MED PO SCH (09:15)
[2022-08-12] MEDS: DULoxetine 20 MG (CYMBALTA) CAP PO SCH ×2 (09:45→21:31)
[2022-08-12] MEDS: dilTIAZem120 MG (CARDIZEM CD) CAP PO SCH (09:45)
[2022-08-12] MEDS: DOCUSATE SODIUM 100 MG (COLACE) CAP PO SCH ×2 (09:46→21:31)
[2022-08-12] MEDS: PANTOPRAZOLE 40 MG (PROTONIX) TAB PO SCH (09:46)
[2022-08-12] MEDS: SENNOSIDES 8.6 MG (SENOKOT) TAB PO SCH ×2 (09:46→21:31)
[2022-08-12] MEDS: meTOprolol TARTRATE 25 MG (LOPRESSOR) TABLET PO SCH ×2 (09:46→17:59)
[2022-08-12] MEDS: ENOXAPARIN 100 MG/1 ML (LOVENOX) SYR SC SCH ×2 (09:47→21:31)
[2022-08-12 11:01] VITALS: BP 135/64
--- NOTE | 2022-08-12 13:49 | History & Physical-Hospitalist ---
[facility] 08/12/22 1349: History of Present Illness HPI/Chief Complaint Vishnu Jaimes is an 83y M with PMH of COPD, Afib, HTN and ulcerative colitis who presented to the ED 08/11 with increasing SOB and weakness. He has had a cough for the past few months that produces white sputum, sometimes red streaked sputum. Yesterday he was increasingly SOB and reports O2 sats of 91, he is usually closer to 97%. He has a nebulizer at home and did a breathing treatment night but it did not improve his symptoms. He has had episodes of increased SOB similar to this in the past that usually improve with nebulizer treatment. He has had a decreased appetite the past week and had nausea yesterday, no vomiting. Last BM was yesterday, formed without blood. Denies sore throat, trouble swallowing. Pt is lying comfortably in chair, accompanying. Today he is feeling much improved with no SOB at rest. He has his appetite back, no nausea. Normally uses Bipap but slept only with supplemental O2 last night. Reports he has only ever taken mesalamine for UC, no infliximab. Denies recent travel. He did have a hospital stay in 2019 for hemoptysis, bronchoscopy was performed. At the time it was though to be caused by Eliquis so patient was switched to warfarin. Source: patient Exam Limitations: no limitations Date Seen 08/12/22 Time Seen by a Provider: 08:45 Attending Physician Steffany Parsons MD PCP Admitting Physician: Jordyn Ely MD Attending Physician: Jordyn Ely MD Referring Physician Date of Admission August 11, 2022 at 14:16 Home Medications & Allergies Home Medications Reviewed patient Home Medication Reconciliation performed by pharmacy medication reconciliations insulation technician and/or nursing. Patients Allergies have been reviewed. Allergies Allergies Coded Allergies Sulfa (Sulfonamide Antibiotics) (Verified Allergy, Unknown, 08/31/18) montelukast (Unverified Adverse Reaction, Unknown, 06/08/16) Hallucinations per pt Past Phodidc-Eeqpjr-Echcib Hx Patient Social History Marrital Status: Employed/Student: retired Tobacco Use?: No Tobacco type used: Cigarettes Smoking Status: Former Smoker (quit 32 years ago) Smokeless Tobacco Frequency: Former User Use of E-Cig and/or Vaping dev: No Substance use?: No Alcohol Use?: No Pt feels they are or have been: No Immunizations Up To Date Date of Influenza Vaccine: Dec 31, 2020 First/Initial COVID19 Vaccinat: 12/31/20 Second COVID19 Vaccination Terence: 02/20 Tetanus Booster (TDap): Less Than 5 Years PED Vaccines UTD: Yes Date of Pneumonia Vaccine: August 05, 2018 Seasonal Allergies Seasonal Allergies: Yes Current Status Advance Directives: Yes Advance Directive Location: Copy from prev record Communicates: Verbally Primary Language: Puerto Rican Preferred Spoken Language: Puerto Rican Is interpretation needed?: No Implanted or Applied Medical D: Pacemaker, Stents Past Medical History Surgeries: Cardiac, CABG, Coronary Stent, Gallbladder, Pacemaker Pneumonia, Sleep Apnea, COPD Currently Using CPAP: No Currently Using BIPAP: Yes Atrial Fibrillation, Coronary Artery Disease, High Cholesterol, Hypertension Sexually Transmitted Disease: No HIV/AIDS: No Benign Prostatic Hyperpl Colitis, Chronic Diarrhea, Polyps Arthritis Loss of Vision: Denies Hearing Impairment: Denies Skin Did You Recieve Any Treatments: Yes What Type of Treatment Did You: Surgical Intervention Blood Disorders: No Adverse Reaction/Blood Tranf: No (N/A) Family Medical History Reviewed Nursing Family Hx Arthritis Cardiovascular disease Kidney disease G8 BROTHER Leukemia G8 BROTHER Multiple myeloma Prostate cancer 19 FATHER Heart Disease, Hypertension SOCIAL HISTORY: -HISTORY OF SMOKING, QUIT YEARS AGO -DRUGS-DENIES USE -ETOH-DENIES USE PAST SURGICAL HISTORY: -09/25/2006-PACEMAKER BY DR. JUNIOR -03/30/2008-[address] DOWLING AT [facility] -10/06/2011--CARDIAC CATH BY DR. HOYOS; NO INTERVENTION -10/2011-CHOLECYSTECTOMY BY DR. HAYS -10/17/2011--PACEMAKER REPLACED BY DR. JUNIOR -03/01/2012--COLONOSCOPY BY DR. WILLAMS. DX ULCERATIVE COLITIS -12/30/2013--CARDIAC CATH WITH STENTS X [address] 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 LYNN -04/2016--REMOVAL OF BENIGN MASS ON BACK BY DR. BENJAMIN. -05/2017--COLONOSCOPY BY DR. MCKOY -09/21/2019--PACEMAKER REPLACED BY DR. JUNIOR ADDITIONAL PMH: 08/31/2018-10/31/2018-PT HAD PNEUMONIA WITH RESPIRATORY FAILURE AND PLACED ON VENTILATOR. PT THEN WENT TO [facility] FOR REHAB FROM 10/31/2018--12/01/2018 Review of Systems Constitutional: No fever, No weakness EENTM: No throat pain Respiratory: cough; No hemoptysis; phlegm; No short of breath Cardiovascular: No chest pain, No edema Gastrointestinal: No loss of appetite, No nausea, No vomiting Genitourinary: No dysuria, No hematuria Skin: No change in color; lesions (left leg cut from a few days ago) Psychiatric/Neurological: Denies Headache, Denies Numbness All Other Systems Reviewed Negative Unless Noted: Yes (Negative excepted noted.) Physical Exam Physical Exam Vital Signs Vital Signs - First Documented 08/11/22 08/11/22 08/11/22 10:25 14:15 15:20 Temp 36.9 Pulse 105 Resp 18 B/P (MAP) 136/82 (100) Pulse Ox 91 O2 Delivery Room Air O2 Flow Rate 2.00 FiO2 21 Capillary Refill : Less Than 3 Seconds Height, Weight, BMI Height: 5'6.00" Weight: 197lbs. 8.0oz. 73.152595aq; 30.82 BMI Method:Stated General Appearance: No Apparent Distress, WD/WN HEENT: PERRL/EOMI, Moist Mucous Membranes Neck: Full Range of Motion, Normal Inspection Respiratory: Chest Non Tender, No Accessory Muscle Use, No Respiratory Distress, Crackles Cardiovascular: Regular Rate, Rhythm, No Edema, No Murmur Gastrointestinal: Non Tender, Soft Extremity: Normal Capillary Refill, No Pedal Edema Neurologic/Psychiatric: Alert, No Motor/Sensory Deficits, Normal Mood/Affect Skin: Normal Color, Warm/Dry, Other (dressing on left ankle, no warmth or erythema extending beyond dressing) Results Results/Procedures Labs Laboratory Tests 08/11/22 10:35 08/12/22 05:14 Patient resulted labs reviewed. Imaging: Reviewed Imaging Films, Reviewed Imaging Report Assessment/Plan Admission Diagnosis Admission Status: Inpatient Order (span 2 midnights) Reason for Inpatient Admission: Cavitary pneumonia Assessment and Plan Cavitary pneumonia COPD Right perihilar consolidation Sputum culture with e.coli Tuberculosis less likely Continue ampicillin/sulbactam Oxygen supplementation as needed Sputum cultures and AFB pending Ulcerative colitis Patient maintained on mesalamine Never on infliximab Afib HTN Home meds DVT Prophylaxis: Lovenox JORDYN ELY MD 08/12/22 1730: History of Present Illness Time Seen by a Provider: 12:55 Past Yikehth-Yfedqb-Aykxzx Hx Family Medical History Arthritis Cardiovascular disease Kidney disease G8 BROTHER Leukemia G8 BROTHER Multiple myeloma Prostate cancer 19 FATHER Assessment/Plan Admission Diagnosis Cavitary pneumonia Admission Status: Inpatient Order (span 2 midnights) Reason for Inpatient Admission: IV antibiotics Assessment and Plan Admitted with cavitary lung lesions/right lung mass-like consolidation. Started on IV antibiotics. Infectious workup started. Ruling out TB. History of pneumonia with hemoptysis necessitating bronchoscopy in 2019. Reportedly never on immunosuppressive meds for UC. Pulmonary consulted. Diagnosis/Problems Diagnosis/Problems (1) Cavitary lesion of lung Status: Acute (2) Cavitary pneumonia Status: Acute (3) Mass of right lung Status: Acute (4) History of hemoptysis Status: Chronic (5) HTN (hypertension) Status: Chronic (6) Afib Status: Chronic (7) GERD (gastroesophageal reflux disease) Status: Chronic (8) UC (ulcerative colitis) Status: Chronic (9) CKD (chronic kidney disease), stage II Status: Chronic Supervisory-Addendum Brief Verification & Attestation Participated in pt care: history, MDM, physical Personally performed: exam, history, MDM, supervision of care Care discussed with: Medical Student Procedures: n/a Results interpretation: Verified all documentation A medical student performed and documented this service in my presence. I reviewed and verified all information documented by the medical student and made modifications to such information, when appropriate. I personally performed the physical exam and medical decision making. SWETA LAUREN August 12, 2022 13:49 JORDYN ELY MD August 12, 2022 17:30
--- NOTE | 2022-08-12 15:33 | Consultation-Cardiology ---
HPI-Cardiology Cardiology Consultation: Date of Consultation 08/12/22 Date of Admission Attending Physician Steffany Parsons MD Admitting Physician Admitting Physician: Meryl Verdugo MD Attending Physician: Meryl Verdugo MD Consulting Physician Deepak BERNAL MD HPI: Time Seen by a Provider: 15:30 Chief Complaint: Shortness of breath This is a 82-year-old gentleman with significant past medical and cardiac history. He has been admitted for cavitary pneumonia. Rule out TB. He has history of PCI with Dr. Gomez. Permanent pacemaker. Atrial fibrillation. On oral anticoagulation. No current cardiac complaints Review of Systems-Cardiology Review of Systems Constitutional: no symptoms reported Eyes: No decreased acuity Ears/Nose/Throat: No chronic hearing loss Respiratory: shortness of breath Cardiovascular: No chest pain, No irregular heart rate Gastrointestinal: no symptoms reported Genitourinary: no symptoms reported Musculoskeletal: no symptoms reported Skin: no symptoms reported Psychiatric/Neurological: no symptoms reported Hematologic: no symptoms reported All Other Systems Reviewed Negative Unless Noted: Yes IFC-Wmkoop-Bvmnbj Hx Patient Social History Marrital Status: Employed/Student: retired Smoking Status: Former Smoker Former smoker/When Quit: Dec 30, 2008 2nd Hand Smoke Exposure: No Have you traveled recently?: No Alcohol Use?: No Pt feels they are or have been: No Tobacco type used: Cigarettes Immunizations Up To Date Tetanus Booster (TDap): Less than 5yrs Date of Pneumonia Vaccine: August 05, 2018 Date of Influenza Vaccine: Dec 31, 2020 Past Medical History PMH As described under Assessment. Family Medical History Family History: Arthritis Cardiovascular disease Kidney disease G8 BROTHER Leukemia G8 BROTHER Multiple myeloma Prostate cancer 19 FATHER Allergies and Home Medications Allergies Coded Allergies: Sulfa (Sulfonamide Antibiotics) (Verified Allergy, Unknown, 08/31/18) montelukast (Unverified Adverse Reaction, Unknown, 06/08/16) Hallucinations per pt Patient Home Medication List Home Medication List Reviewed: Yes Acetaminophen (Tylenol Extra Strength) 500 Mg Tablet, 500-1,000 MG PO Q8H PRN for PAIN-MILD (1-4) OR TEMPATURE, (Reported) Entered as Reported by: DAYANNA CARSON on 03/28/21 6229 Last Action: Held Ascorbic Acid (Vitamin C) 500 Mg Tablet, 500 MG PO DAILY, (Reported) Entered as Reported by: DAYANNA CARSON on 03/28/211614 Last Action: Held Aspirin (Aspirin EC) 81 Mg Tablet., 81 MG PO Q48H, (Reported) Entered as Reported by: DAYANNA CARSON on 03/28/211614 Last Action: Continued Cholecalciferol (Vitamin D3) (Vitamin D3) 125 Mcg Capsule, 125 MCG PO DAILY, (Reported) Entered as Reported by: DAYANNA CARSON on 03/28/211614 Last Action: Held Diltiazem HCl (Diltiazem 24Hr ER) 120 Mg Cap.er.24h, 120 MG PO DAILY, (Reported) Entered as Reported by: DAYANNA CARSON on 03/28/211614 Last Action: Continued Duloxetine HCl (Duloxetine HCl) 20 Mg Capsule.dr, 20 MG PO Q12H, (Reported) Entered as Reported by: DAYANNA CARSON on 03/28/211614 Last Action: Continued Fluticasone Propionate (Fluticasone Propionate) 50 Mcg/Actuation [place].susp, 1 SPRAY NSEACH BID PRN for CONGESTION, (Reported) Entered as Reported by: SARAH CLEARY on 12/08/15 1411 Last Action: Held Fluticasone/Vilanterol (Breo Ellipta 100-25 Mcg INH) 1 Each Blst.w.dev, 1 PUFF INH DAILY, (Reported) Entered as Reported by: DAYANNA CARSON on 03/28/211614 Last Action: Continued Furosemide (Furosemide) 20 Mg Tablet, 20 MG PO Q72H, (Reported) Entered as Reported by: DAYANNA CARSON on 03/28/211614 Last Action: Held Gluc Trevino/Chondro Trevino A/Vit C/Mn (Glucosamine Chondroitin Tab) 750 Mg-600 Mg-55 Mg- 5 Mg Tablet, 1 EACH PO 1200, (Reported) Entered as Reported by: DAYANNA CARSON on 08/11/22 1520 Last Action: Held Lactobacillus Combination No.4 (Probiotic) 1 Each Capsule, 1 EA PO HS, (Reported) Entered as Reported by: SARAH CLEARY on 06/08/16 1245 Last Action: Held Loperamide HCl (Imodium A-D) 2 Mg Tablet, 1 MG PO BID WITH MEALS, (Reported) Entered as Reported by: DYLAN HORTON on 09/19/18 0828 Last Action: Held Loratadine (Loratadine) 10 Mg Tab.rapdis, 10 MG PO 1800 W/SUPPER, (Reported) Entered as Reported by: DAYANNA CARSON on 08/11/22 1520 Last Action: Continued Losartan Potassium (Losartan Potassium) 50 Mg Tablet, 25 MG PO 1800 W/SUPPER, (Reported) Entered as Reported by: DAYANNA CARSON on 03/28/211614 Last Action: Continued Mesalamine (Mesalamine) 1.2 Gm Tablet.dr, 2.4 GM PO 1800 W/ DINNER, (Reported) Entered as Reported by: DAYANNA CARSON on 03/28/211614 Last Action: Converted Metoprolol Tartrate (Metoprolol Tartrate) 25 Mg Tablet, 25 MG PO BID WITH MEALS, (Reported) Entered as Reported by: DAYANNA CARSON on 03/28/211614 Last Action: Continued Multivit-Min/FA/Lycopene/Lut (Centrum Silver Tablet) 1 Each Tablet, 1 EA PO 12 00, (Reported) Entered as Reported by: DYLAN HORTON on 04/12/17 0934 Last Action: Held Pantoprazole Sodium (Pantoprazole Sodium) 40 Mg Tablet.dr, 40 MG PO DAILY, (Reported) Entered as Reported by: DAYANNA CARSON on 03/28/211614 Last Action: Continued Tamsulosin HCl (Flomax) 0.4 Mg Cap, 0.4 MG PO 1800 W/SUPPER, (Reported) Entered as Reported by: DAYANNA CARSON on 03/28/211614 Last Action: Continued Warfarin Sodium (Warfarin Sodium) 3 Mg Tablet, 3 MG PO UD, (Reported) Entered as Reported by: MERCEDES SHABAZZ on 08/25/21442 Last Action: Continued Warfarin Sodium (Warfarin Sodium) 4 Mg Tablet, 4 MG PO UD, (Reported) Entered as Reported by: MERCEDES SHABAZZ on 08/25/21442 Last Action: Continued Discontinued Medications Azithromycin (Azithromycin) 250 Mg Tablet, 250 MG PO DAILY Discontinued Reason: No Longer Taking Prescribed by: CATRACHITA BRAVO on 08/27/21 1132 Last Action: Discontinued Cephalexin (Cephalexin) 500 Mg Tablet, 500 MG PO BID Discontinued Reason: No Longer Taking Prescribed by: CATRACHITA BRAVO on 08/27/21 1132 Last Action: Discontinued Cetirizine HCl (Cetirizine HCl) 10 Mg Tablet, 10 MG PO 1200, (Reported) Discontinued Reason: No Longer Taking Entered as Reported by: DAYANNA CARSON on 03/28/21 1615 Last Action: Discontinued Glucosamine/D3/Boswellia Kathrin (Osteo Bi-Flex Tablet) 1,500 Mg-400 Unit-100 Mg Tablet, 1 EACH PO 1200, (Reported) Discontinued Reason: Prescription changed Entered as Reported by: DAYANNA CARSON on 08/25/21 1156 Mupirocin (Mupirocin) 2 % Oint...g., 1 APPLIC TOP TID, (Reported) Discontinued Reason: No Longer Taking Entered as Reported by: DAYANNA CARSON on 08/25/21 1156 Last Action: Discontinued Prednisone (Prednisone) 10 Mg Tab.ds.pk, 10 MG PO DAILY Discontinued Reason: No Longer Taking Prescribed by: CATRACHITA BRAVO on 08/27/21 1136 Last Action: Discontinued Exam Vital Signs Vital Signs Date Time Temp Pulse Resp B/P (MAP) Pulse Ox O2 Delivery O2 Flow Rate FiO2 08/12/22 11:01 36.8 90 18 135/64 (87) 97 Nasal Cannula 2.00 08/11/22 15:20 21 Physical Exam Normal cardiovascular examination. Normal chest examination Labs Laboratory Tests Test 08/11/22 17:21 08/12/22 05:14 Range/Units Prothrombin Time 18.0 H 12.2-14.7 SEC INR Comment 1.5 H 0.8-1.4 White Blood Count 12.0 H 4.3-11.0 10^3/uL Red Blood Count 4.12 L 4.30-5.52 10^6/uL Hemoglobin 12.5 L 13.3-17.7 g/dL Hematocrit 38 L 40-54 % Mean Corpuscular Volume 91 80-99 fL Mean Corpuscular Hemoglobin 30 25-34 pg Mean Corpuscular Hemoglobin Concent 33 32-36 g/dL Red Cell Distribution Width 14.6 H 10.0-14.5 % Platelet Count 165 130-400 10^3/uL Mean Platelet Volume 9.4 9.0-12.2 fL Immature Granulocyte % (Auto) 1 % Neutrophils (%) (Auto) 77 H 42-75 % Lymphocytes (%) (Auto) 15 12-44 % Monocytes (%) (Auto) 7 0-12 % Eosinophils (%) (Auto) 1 0-10 % Basophils (%) (Auto) 0 0-10 % Neutrophils # (Auto) 9.2 H 1.8-7.8 10^3/uL Lymphocytes # (Auto) 1.8 1.0-4.0 10^3/uL Monocytes # (Auto) 0.8 0.0-1.0 10^3/uL Eosinophils # (Auto) 0.1 0.0-0.3 10^3/uL Basophils # (Auto) 0.0 0.0-0.1 10^3/uL Immature Granulocyte # (Auto) 0.1 0.0-0.1 10^3/uL Sodium Level 138 135-145 MMOL/L Potassium Level 3.9 3.6-5.0 MMOL/L Chloride Level 105 98-107 MMOL/L Carbon Dioxide Level 23 21-32 MMOL/L Anion Gap 10 5-14 MMOL/L Blood Urea Nitrogen 15 7-18 MG/DL Creatinine 1.16 0.60-1.30 MG/DL Estimat Glomerular Filtration Rate 64 BUN/Creatinine Ratio 13 Glucose Level 122 H 70-105 MG/DL Calcium Level 8.8 8.5-10.1 MG/DL Magnesium Level 1.8 1.6-2.4 MG/DL A/P-Cardiology Assessment/Admission Diagnosis Cavitary pneumonia, History of CAD, CABG, stents, Paroxysmal atrial fibrillation, Pacemaker, Chronic oral anticoagulation, Plan Cavitary pneumonia, on antibiotics. Defer to the primary team. History of CAD, CABG, stents, no active issues. Paroxysmal atrial fibrillation, continue oral anticoagulation. Pacemaker, no active issues Chronic oral anticoagulation, Deepak BERNAL MD August 12, 2022 15:33
[2022-08-12 15:34] VITALS: BP 120/60
[2022-08-12] MEDS: TAMSULOSIN 0.4 MG (FLOMAX) CAP PO SCH (17:58)
[2022-08-12] MEDS: LOSARTAN 50 MG (COZAAR) TAB PO SCH (17:59)
[2022-08-12] MEDS: LORATADINE (CLARITIN) 10 MG TAB PO SCH (17:59)
[2022-08-12] MEDS: warFARin 4 MG (COUMADIN) TAB PO SCH (18:39)
[2022-08-12 19:52] VITALS: BP 151/71
[2022-08-12 23:06] VITALS: BP 143/65
[2022-08-13] MEDS: RT-ALBUTEROL HFA 8.5 GM INHALER IH SCH ×4 (02:24→21:54)
[2022-08-13 03:45] VITALS: BP 136/65
[2022-08-13] MEDS: AMPICILLIN/SULBACTAM INJECTION 3 GM in NS (IVPB) 100 ML IV SCH ×4 (03:45→20:39)
[2022-08-13 05:36] LABS: BASOPHILS % (AUTO) 0 % (0-10); EOSINOPHILS # (AUTO) 0.3 10^3/uL (0.0-0.3); EOSINOPHILS % (AUTO) 3 % (0-10); HEMATOCRIT 37 % (40-54); LYMPHOCYTES # (AUTO) 1.5 10^3/uL (1.0-4.0); LYMPHOCYTES % (AUTO) 14 % (12-44); MEAN CORPUSCULAR HEMOGLOBIN 30 pg (25-34); MEAN CORPUSCULAR HGB CONC 33 g/dL (32-36); MEAN CORPUSCULAR VOLUME 92 fL (80-99); MEAN PLATELET VOLUME 9.7 fL (9.0-12.2); MONOCYTES # (AUTO) 0.8 10^3/uL (0.0-1.0); MONOCYTES % (AUTO) 7 % (0-12); NEUTROPHILS # (AUTO) 8.1 10^3/uL (1.8-7.8); NEUTROPHILS % (AUTO) 75 % (42-75); PLATELET COUNT 170 10^3/uL (130-400); WHITE BLOOD COUNT 10.8 10^3/uL (4.3-11.0)
[2022-08-13 05:46] LABS: INR 1.6 (0.8-1.4); PROTHROMBIN TIME PATIENT 18.9 SEC (12.2-14.7)
[2022-08-13 05:56] LABS: CALCIUM 8.9 MG/DL (8.5-10.1); CREATININE SERUM 1.07 MG/DL (0.60-1.30); POTASSIUM 4.3 MMOL/L (3.6-5.0)
[2022-08-13] MEDS: MAGNESIUM 1 GM/100 ML IVPB 100 ML IV SCH (06:10)
[2022-08-13] MEDS: POTASSIUM CL 10MEQ/50ML IVPB 50 ML IV SCH (06:10)
[2022-08-13] MEDS: KCL 20 MEQ TAB (K-DUR) PO SCH (06:11)
[2022-08-13 07:06] VITALS: BP 146/66
[2022-08-13] MEDS: FLUTICASONE/VILANTEROL 100 MCG 14'S (BREO) IH SCH (08:03)
[2022-08-13] MEDS: ENOXAPARIN 100 MG/1 ML (LOVENOX) SYR SC SCH ×2 (08:11→20:41)
[2022-08-13] MEDS: meTOprolol TARTRATE 25 MG (LOPRESSOR) TABLET PO SCH ×2 (08:12→16:52)
[2022-08-13] MEDS: DULoxetine 20 MG (CYMBALTA) CAP PO SCH ×2 (08:12→20:38)
[2022-08-13] MEDS: dilTIAZem120 MG (CARDIZEM CD) CAP PO SCH (08:12)
[2022-08-13] MEDS: PANTOPRAZOLE 40 MG (PROTONIX) TAB PO SCH (08:12)
[2022-08-13] MEDS: DOCUSATE SODIUM 100 MG (COLACE) CAP PO SCH ×2 (08:17→20:39)
[2022-08-13] MEDS: SENNOSIDES 8.6 MG (SENOKOT) TAB PO SCH ×2 (08:17→20:46)
[2022-08-13 11:08] VITALS: BP 117/59
--- NOTE | 2022-08-13 14:13 | Progress Note - Hospitalist ---
[facility] 1413: Subjective HPI/CC On Admission Vishnu Jaimes is an 83y M with PMH of COPD, Afib, HTN and ulcerative colitis who presented to the ED 08/11 with increasing SOB and weakness. He has had a cough for the past few months that produces white sputum, sometimes red streaked sputum. Yesterday he was increasingly SOB and reports O2 sats of 91, he is usually closer to 97%. He has a nebulizer at home and did a breathing treatment night but it did not improve his symptoms. He has had episodes of increased SOB similar to this in the past that usually improve with nebulizer treatment. He has had a decreased appetite the past week and had nausea yesterday, no vomiting. Last BM was yesterday, formed without blood. Denies sore throat, trouble swallowing. Pt is lying comfortably in chair, accompanying. Today he is feeling much improved with no SOB at rest. He has his appetite back, no nausea. Normally uses Bipap but slept only with supplemental O2 last night. Reports he has only ever taken mesalamine for UC, no infliximab. Denies recent travel. He did have a hospital stay in 2019 for hemoptysis, bronchoscopy was per formed. At the time it was though to be caused by Eliquis so patient was switched to warfarin. Subjective/Events-last exam Patient fell off toilet overnight while straining for a BM. He hit his head and nose but is no longer having pain. He was given a stool softener and is now experiencing diarrhea. Still having cough with blood-tinged sputum that he is collecting in specimen cup. Review of Systems General: No Chills, No Night Sweats; Appetite Pulmonary: Cough; No Pleuritic Chest Pain Cardiovascular: Orthopnea; No: Chest Pain Gastrointestinal: Diarrhea; No: Nausea, Vomiting Neurological: No: Weakness, Incoordination Focused Exam Lactate Level 08/11/22 10:35: Lactic Acid Level 2.30*H 08/11/22 12:55: Lactic Acid Level 1.59 Objective Exam Vital Signs Vital Signs Date Time Temp Pulse Resp B/P (MAP) Pulse Ox O2 Delivery O2 Flow Rate FiO2 08/13/22 11:08 36.4 61 18 117/59 (78) 95 Nasal Cannula 2.00 08/11/22 15:20 21 Capillary Refill : Less Than 3 Seconds General Appearance: No Apparent Distress, WD/WN HEENT: PERRL/EOMI, Moist Mucous Membranes Respiratory: Lungs Clear, Normal Breath Sounds, No Accessory Muscle Use, No Respiratory Distress Cardiovascular: Regular Rate, Rhythm, No Murmur Gastrointestinal: Normal Bowel Sounds, Non Tender, Soft Extremity: No Pedal Edema, Other (dressing on left ankle no warmth or erythema extending beyond dressing) Neurologic/Psychiatric: Alert, No Motor/Sensory Deficits, Normal Mood/Affect Skin: Normal Color, Warm/Dry, Other (small scab on nose) Results/Procedures Lab Laboratory Tests 08/13/22 05:00 Patient resulted labs reviewed. Imaging: Reviewed Imaging Films, Reviewed Imaging Report Assessment/Plan Assessment and Plan Assess & Plan/Chief Complaint Cavitary lung lesions Right perihilar mass-like consolidation Tuberculosis less likely COPD Continue ampicillin/sulbactam Oxygen supplementation not needed at this time Sputum cultures and AFB pending History of pneumonia with hemoptysis necessitating bronchoscopy in 2019 Pulmonary consulted Ulcerative colitis Patient maintained on mesalamine Never on immunosuppresive meds Afib HTN Home meds DVT Prophylaxis: LoveJORDYN Braden MD 08/13/22 1708: Subjective HPI/CC On Admission Date Seen by Provider: August 13, 2022 Time Seen by Provider: 12:15 Assessment/Plan Assessment and Plan Assess & Plan/Chief Complaint Continue Unasyn. AFBs ordered, discussed induced sputum with respiratory. Pulm consulted, will assess tomorrow. Episode overnight consistent with vasovagal syncope, monitor. Diagnosis/Problems Diagnosis/Problems (1) Cavitary lesion of lung Status: Acute (2) Cavitary pneumonia Status: Acute (3) Mass of right lung Status: Acute (4) Hemoptysis Status: Acute (5) Ulcerative colitis Status: Chronic (6) Vasovagal syncope Status: Acute Supervisory-Addendum Brief Verification & Attestation Participated in pt care: history, MDM, physical Personally performed: exam, history, MDM, supervision of care Care discussed with: Medical Student Procedures: n/a Results interpretation: Verified all documentation A medical student performed and documented this service in my presence. I reviewed and verified all information documented by the medical student and made modifications to such information, when appropriate. I personally performed the physical exam and medical decision making. SWETA LAUREN August 13, 2022 14:13 JORDYN ELY MD August 13, 2022 17:08
[2022-08-13 15:33] VITALS: BP 136/62
--- NOTE | 2022-08-13 15:42 | Cardiology Progress Note ---
Cardiology SOAP Progress Note Subjective: Feels much better than yesterday. Objective: I&O/Vital Signs 08/13/22 08/13/22 08/13/22 08/13/22 03:45 07:06 08:04 08:06 Temp 36.7 36.2 Pulse 70 72 Resp 18 20 B/P (MAP) 136/65 (88) 146/66 (92) Pulse Ox 96 95 O2 Delivery Nasal Cannula Nasal Cannula Nasal Cannula Nasal Cannula O2 Flow Rate 2.00 2.00 2.00 2.00 08/13/22 08/13/22 08/13/22 08/13/22 09:54 11:08 15:04 15:33 Temp 36.4 36.7 Pulse 61 71 Resp 18 18 B/P (MAP) 117/59 (78) 136/62 (86) Pulse Ox 95 95 O2 Delivery Nasal Cannula Nasal Cannula Nasal Cannula Nasal Cannula O2 Flow Rate 2.00 2.00 2.00 2.00 08/13/22 00:00 Intake Total 2040 ml Balance 2040 ml Weight (Pounds): 197 Weight (Ounces): 8.0 Weight (Calculated Kilograms): 73.779590 Constitutional: AAO x 3 Respiratory: No accessory muscle use, No respiratory distress; lungs clear to auscultation; No stridor, No wheezing Cardiovascular: regular rate-rhythm, S1 and S2; No diastolic murmur, No systolic murmur Gastrointestional: soft Extremities: No pedal edema Neurologic/Psychiatric: no motor/sensory deficits, alert, normal mood/affect, oriented x 3 Results/Procedures: Labs Laboratory Tests 08/13/22 05:00: White Blood Count 10.8, Red Blood Count 3.95L, Hemoglobin 12.0L, Hematocrit 37L, Mean Corpuscular Volume 92, Mean Corpuscular Hemoglobin 30, Mean Corpuscular Hemoglobin Concent 33, Red Cell Distribution Width 14.6H, Platelet Count 170, Mean Platelet Volume 9.7, Immature Granulocyte % (Auto) 1, Neutrophils (%) (Auto) 75, Lymphocytes (%) (Auto) 14, Monocytes (%) (Auto) 7, Eosinophils (%) (Auto) 3, Basophils (%) (Auto) 0, Neutrophils # (Auto) 8.1H, Lymphocytes # (Auto) 1.5, Monocytes # (Auto) 0.8, Eosinophils # (Auto) 0.3, Basophils # (Auto) 0.0, Immature Granulocyte # (Auto) 0.1, Prothrombin Time 18.9H, INR Comment 1.6H , Sodium Level 140, Potassium Level 4.3, Chloride Level 107, Carbon Dioxide Level 22, Anion Gap 11, Blood Urea Nitrogen 13, Creatinine 1.07, Estimat Glomerular Filtration Rate 70, BUN/Creatinine Ratio 12, Glucose Level 127H, Calcium Level 8.9, Magnesium Level 2.0 Microbiology 08/11/22 Gram Stain - Final, Resulted 08/11/22 Sputum Culture - Preliminary, Resulted Escherichia coli Usual upper respiratory evette 08/11/22 Blood Culture - Preliminary, Resulted No growth A/P: Assessment/Dx: Cavitary pneumonia, History of CAD, CABG, stents, Paroxysmal atrial fibrillation, Pacemaker, Chronic oral anticoagulation, Plan: Cavitary pneumonia, on antibiotics. Defer to the primary team. Pulmonary consultation recommended History of CAD, CABG, stents, no active issues. Paroxysmal atrial fibrillation, continue oral anticoagulation. Pacemaker, no active issues Chronic oral anticoagulation, Thank you for your consultation. Please call me if you have any questions. Naren Raines MD, FACP, FACC, FSCAI, FHRS, CCDS Interventional Cardiology Cardiac Electrophysiology Vascular Medicine and Endovascular Interventions Focused Exam Lactate Level 08/11/22 10:35: Lactic Acid Level 2.30*H 08/11/22 12:55: Lactic Acid Level 1.59 Deepak RAINES MD August 13, 2022 15:42
[2022-08-13] MEDS: TAMSULOSIN 0.4 MG (FLOMAX) CAP PO SCH (16:52)
[2022-08-13] MEDS: LOSARTAN 50 MG (COZAAR) TAB PO SCH (16:52)
[2022-08-13] MEDS: LORATADINE (CLARITIN) 10 MG TAB PO SCH (16:52)
[2022-08-13] MEDS: warFARin 4 MG (COUMADIN) TAB PO SCH (16:53)
[2022-08-13 19:19] VITALS: BP 133/69
[2022-08-13] MEDS: ASPIRIN E.C. 81 MG (ECOTRIN) TAB PO SCH (20:46)
[2022-08-14 00:20] VITALS: BP 141/66
[2022-08-14] MEDS: RT-ALBUTEROL HFA 8.5 GM INHALER IH SCH ×4 (03:01→22:19)
[2022-08-14] MEDS: AMPICILLIN/SULBACTAM INJECTION 3 GM in NS (IVPB) 100 ML IV SCH ×4 (03:51→20:42)
[2022-08-14 03:56] VITALS: BP 145/64
[2022-08-14 06:00] LABS: BASOPHILS % (AUTO) 1 % (0-10); EOSINOPHILS # (AUTO) 0.3 10^3/uL (0.0-0.3); EOSINOPHILS % (AUTO) 4 % (0-10); HEMATOCRIT 34 % (40-54); HEMOGLOBIN 11.4 g/dL (13.3-17.7); LYMPHOCYTES # (AUTO) 1.3 10^3/uL (1.0-4.0); LYMPHOCYTES % (AUTO) 17 % (12-44); MEAN CORPUSCULAR HEMOGLOBIN 30 pg (25-34); MEAN CORPUSCULAR HGB CONC 33 g/dL (32-36); MEAN CORPUSCULAR VOLUME 91 fL (80-99); MEAN PLATELET VOLUME 9.7 fL (9.0-12.2); MONOCYTES # (AUTO) 0.6 10^3/uL (0.0-1.0); MONOCYTES % (AUTO) 9 % (0-12); NEUTROPHILS # (AUTO) 4.9 10^3/uL (1.8-7.8); NEUTROPHILS % (AUTO) 68 % (42-75); PLATELET COUNT 164 10^3/uL (130-400); WHITE BLOOD COUNT 7.2 10^3/uL (4.3-11.0)
[2022-08-14 06:18] LABS: INR 1.7 (0.8-1.4); POTASSIUM 3.5 MMOL/L (3.6-5.0)
[2022-08-14 06:20] LABS: CALCIUM 8.6 MG/DL (8.5-10.1)
[2022-08-14 06:24] LABS: CREATININE SERUM 1.02 MG/DL (0.60-1.30)
[2022-08-14 06:26] LABS: MAGNESIUM 1.9 MG/DL (1.6-2.4)
[2022-08-14] MEDS: POTASSIUM CL 10MEQ/50ML IVPB 50 ML IV SCH (06:34)
[2022-08-14] MEDS: MAGNESIUM 1 GM/100 ML IVPB 100 ML IV SCH ×3 (06:36→06:41)
[2022-08-14] MEDS: KCL 20 MEQ TAB (K-DUR) PO SCH (06:36)
[2022-08-14 07:31] VITALS: BP 146/67
[2022-08-14] MEDS: DULoxetine 20 MG (CYMBALTA) CAP PO SCH ×2 (08:08→20:41)
[2022-08-14] MEDS: dilTIAZem120 MG (CARDIZEM CD) CAP PO SCH (08:08)
[2022-08-14] MEDS: PANTOPRAZOLE 40 MG (PROTONIX) TAB PO SCH (08:08)
[2022-08-14] MEDS: meTOprolol TARTRATE 25 MG (LOPRESSOR) TABLET PO SCH ×2 (08:08→17:53)
[2022-08-14] MEDS: SENNOSIDES 8.6 MG (SENOKOT) TAB PO SCH ×2 (08:09→20:42)
[2022-08-14] MEDS: ENOXAPARIN 100 MG/1 ML (LOVENOX) SYR SC SCH ×2 (08:09→20:42)
[2022-08-14] MEDS: DOCUSATE SODIUM 100 MG (COLACE) CAP PO SCH ×2 (08:10→20:42)
--- NOTE | 2022-08-14 08:34 | Progress Note - Cardiology ---
Cardiology SOAP Progress Note Subjective: Remains dyspneic No LE swelling Seen in isolation Objective: I&O/Vital Signs 08/14/22 08/14/22 08/14/22 08/14/22 07:31 08:00 09:45 09:46 Temp 36.0 Pulse 72 Resp 18 B/P (MAP) 146/67 (93) Pulse Ox 96 95 95 O2 Delivery Nasal Cannula Nasal Cannula Nasal Cannula Nasal Cannula O2 Flow Rate 2.00 2.00 2.00 2.00 08/14/22 08/14/22 08/14/22 11:44 15:00 15:53 Temp 36.4 36.5 Pulse 66 64 Resp 18 18 B/P (MAP) 134/69 (90) 146/63 (90) Pulse Ox 96 96 97 O2 Delivery Nasal Cannula Nasal Cannula Nasal Cannula O2 Flow Rate 2.00 2.00 2.00 08/14/22 00:00 Intake Total 1560 ml Balance 1560 ml Weight (Pounds): 197 Weight (Ounces): 8.0 Weight (Calculated Kilograms): 73.014770 Constitutional: AAO x 3 Respiratory: No accessory muscle use, No respiratory distress, No stridor, No wheezing; other (coarse breath sounds) Cardiovascular: regular rate-rhythm, S1 and S2; No diastolic murmur, No systolic murmur Gastrointestional: soft; No guarding; audible bowel sounds Extremities: No pedal edema; no lower extremity edema bilateral Neurologic/Psychiatric: grossly intact (moves all extremities) Skin: No rash on exposed areas, No ulcerations on exposed areas Results/Procedures: Labs Laboratory Tests 08/14/22 05:49: White Blood Count 7.2, Red Blood Count 3.76L, Hemoglobin 11.4L, Hematocrit 34L, Mean Corpuscular Volume 91, Mean Corpuscular Hemoglobin 30, Mean Corpuscular Hemoglobin Concent 33, Red Cell Distribution Width 14.4, Platelet Count 164, Mean Platelet Volume 9.7, Immature Granulocyte % (Auto) 1, Neutrophils (%) (Auto) 68, Lymphocytes (%) (Auto) 17, Monocytes (%) (Auto) 9, Eosinophils (%) (Auto) 4, Basophils (%) (Auto) 1, Neutrophils # (Auto) 4.9, Lymphocytes # (Auto) 1.3, Monocytes # (Auto) 0.6, Eosinophils # (Auto) 0.3, Basophils # (Auto) 0.0, Immature Granulocyte # (Auto) 0.1, Prothrombin Time 20.0H, INR Comment 1.7H, Sodium Level 139, Potassium Level 3.5L, Chloride Level 108H, Carbon Dioxide Level 21, Anion Gap 10, Blood Urea Nitrogen 12, Creatinine 1.02, Estimat Glomerular Filtration Rate 74, BUN/Creatinine Ratio 12, Glucose Level 121H, Calcium Level 8.6, Magnesium Level 1.9 Microbiology 08/11/22 Gram Stain - Final, Resulted 08/11/22 Sputum Culture - Preliminary, Resulted Escherichia coli Usual upper respiratory evette 08/11/22 Blood Culture - Preliminary, Resulted No growth Procedures NAME: YEHUDA LAW [facility] REC#: [id number] PT STATUS: REG ER : 1940 PHYSICIAN: YOVANNY AREVALO DO ADMIT DATE: 08/11/22/ER Signed Date of Exam:08/11/22 CT CHEST W PROCEDURE: CT chest with contrast only. TECHNIQUE: Multiple contiguous axial images were obtained through the chest after administration of intravenous contrast. Auto Exposure Controls were utilized during the CT exam to meet ALARA standards for radiation dose reduction. INDICATION: Abnormal chest radiograph COMPARISON: Chest radiograph 08/11/2022 FINDINGS: Scattered centrilobular and paraseptal emphysema. Round consolidation within the right upper lobe in the perihilar region with spiculated margins measuring 2.9 x 5.2 cm. The mass extends inferiorly into the superior segment of the right lower lobe also in the perihilar region. The craniocaudal dimension measures 8.6 cm. A cavitary lesion within the right lower lobe with nodular margin measuring 3.9 x 3.6 cm. Cavitary lesion in the left lower lobe measuring 3.5 x 1.8 cm. 0.8 cm pulmonary nodule in the right upper lobe (image 68 series 3). Other additional similar pulmonary nodules are noted. Scattered tree-in-bud opacities and groundglass opacities throughout both lungs. No pleural effusion or pneumothorax. Multiple nonspecific subcentimeter mediastinal and hilar lymph nodes are noted with the largest left paratracheal mediastinal lymph node measuring 1.5 x 1.0 cm. The heart is enlarged. The aorta and pulmonary artery are normal in caliber. The abdomen demonstrates a 1.2 cm nonspecific right adrenal gland nodule. The osseous structures demonstrate no lytic or sclerotic bone lesions. IMPRESSION: Multiple pulmonary lesions which may represent an infectious process or cancer. Recommend correlation with history of cancer, white blood cell count, fever, cough, and inflammatory markers. If there is clinical suggestion of an infectious process then a follow-up CT after completion of appropriate therapy is recommended for surveillance. Can otherwise consider a lung biopsy if clinically appropriate. Right perihilar consolidation involving the right upper lobe and the superior segment of the right lower lobe with spiculated margins measuring 5.2 x 2.9 x 8.6 cm. Cavitary lesion in the right lower lobe measuring 3.9 x 3.6 cm. Cavitary lesion in the left lower lobe measuring 3.5 x 1.8 cm. Scattered bilateral tree in bud and airspace opacities. Multiple additional subcentimeter pulmonary nodules. Emphysema. Nonspecific 1.2 cm right adrenal nodule. Recommend attention on follow-up exam. Dictated by: Dictated on workstation # [id number] Dict: 08/11/22 1252 Trans: 08/11/[address] [facility] [place] [id number] Interpreted by: MOSES CHRISTIAN DO Electronically signed by: MOSES CHRISTIAN DO 08/11/22 1309 A/P: Assessment: Cavitary pneumonia - managed by medical services H/O PE - Pulmonary embolism, pulmonary hemorrhage in mid 2018 (long hospitalization) - Hemoptysis and pulmonary hemorrhage necessitating discontinuation of Eliquis and aspirin in mid-August 2018; currently on warfarin that is being managed by Dr Parsons CAD: - 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 - Cardiac cath from December 30, 2013 in which successful GAURI x 2, one to the proximal and one to the mid vessel LAD, was done. 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 Styles states he is low risk for a cardiovascular event. It did show a small, mild intensity, reversible apical defect with a small amout of inducible ischemia - Echo of 03-28-[address] Styles LVEF 55-60%. Mild concentric hypertrophy. LA and RA are mildly dilated. PASP approx 47 mmHg. 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 Pacemaker currently in the VVIR mode, due to permanent atrial fib. - The patient had a pulse generator change out on 12/18/2011 and in July. The device is functioning normally per last interrogation of Jan 12, 2022 GI - History of ulcerative colitis, being managed by Dr. Parsons and Dr. Seymour Sleep apnea - for which he is on Bi-pap tx Hyperlipidemia - being treated with rosuvastatin. Carotid dz - Mild carotid arterial disease that has been followed by Dr. Mcdaniel Impaired fasting glucose Obesity - Elevated BMI of approx 30 COVID (+) in December 2021 - received BAM infusion Plan: Records from Dr. Raines reviewed Continue current cardiac regimen Pulmonary tele visit scheduled for today - may need to consider transfer to tertiary care facility with pulmonary services Continue Lovenox for now until determination has been made regarding possible bronchoscopy Monitor lab Replace electrolytes as needed Discussed plan of care with VIET Mon August 14, 2022 08:34
[2022-08-14] MEDS ORDERED: KCL 20 MEQ TAB (K-DUR) PO NR (09:00)
[2022-08-14] MEDS: FLUTICASONE/VILANTEROL 100 MCG 14'S (BREO) IH SCH (09:45)
[2022-08-14 11:44] VITALS: BP 134/69
--- NOTE | 2022-08-14 15:41 | Progress Note - Cardiology ---
Cardiology SOAP Progress Note Subjective: No cp or palp or syncope No shortness of breath at rest No n/v/d No focal weakness Gen weakness and malaise present Objective: I&O/Vital Signs 08/14/22 08/14/22 08/14/22 08/14/22 03:56 07:31 08:00 09:45 Temp 36.6 36.0 Pulse 80 72 Resp 20 18 B/P (MAP) 145/64 (91) 146/67 (93) Pulse Ox 95 96 95 O2 Delivery Nasal Cannula Nasal Cannula Nasal Cannula Nasal Cannula O2 Flow Rate 2.00 2.00 2.00 2.00 08/14/22 08/14/22 08/14/22 09:46 11:44 15:00 Temp 36.4 Pulse 66 Resp 18 B/P (MAP) 134/69 (90) Pulse Ox 95 96 96 O2 Delivery Nasal Cannula Nasal Cannula Nasal Cannula O2 Flow Rate 2.00 2.00 2.00 08/14/22 00:00 Intake Total 1560 ml Balance 1560 ml Weight (Pounds): 197 Weight (Ounces): 8.0 Weight (Calculated Kilograms): 73.779625 Constitutional: AAO x 3 Respiratory: No accessory muscle use, No respiratory distress, No stridor, No wheezing; other (coarse breath sounds) Cardiovascular: regular rate-rhythm, S1 and S2; No diastolic murmur, No systolic murmur Gastrointestional: soft; No guarding; audible bowel sounds Extremities: No pedal edema; no lower extremity edema bilateral Neurologic/Psychiatric: other (moves all extremities) Skin: normal color, warm/dry; No cyanosis, No cool, No diaphoresis, No rash on exposed areas, No ulcerations on exposed areas Results/Procedures: Labs Laboratory Tests 08/14/22 05:49: White Blood Count 7.2, Red Blood Count 3.76L, Hemoglobin 11.4L, Hematocrit 34L, Mean Corpuscular Volume 91, Mean Corpuscular Hemoglobin 30, Mean Corpuscular Hemoglobin Concent 33, Red Cell Distribution Width 14.4, Platelet Count 164, Mean Platelet Volume 9.7, Immature Granulocyte % (Auto) 1, Neutrophils (%) (Auto) 68, Lymphocytes (%) (Auto) 17, Monocytes (%) (Auto) 9, Eosinophils (%) (Auto) 4, Basophils (%) (Auto) 1, Neutrophils # (Auto) 4.9, Lymphocytes # (Auto) 1.3, Monocytes # (Auto) 0.6, Eosinophils # (Auto) 0.3, Basophils # (Auto) 0.0, Immature Granulocyte # (Auto) 0.1, Prothrombin Time 20.0H, INR Comment 1.7H, Sodium Level 139, Potassium Level 3.5L, Chloride Level 108H, Carbon Dioxide Lev el 21, Anion Gap 10, Blood Urea Nitrogen 12, Creatinine 1.02, Estimat Glomerular Filtration Rate 74, BUN/Creatinine Ratio 12, Glucose Level 121H, Calcium Level 8.6, Magnesium Level 1.9 Microbiology 08/11/22 Gram Stain - Final, Resulted 08/11/22 Sputum Culture - Preliminary, Resulted Escherichia coli Usual upper respiratory evette 08/11/22 Blood Culture - Preliminary, Resulted No growth Laboratory Tests 08/13/22 05:00 08/14/22 05:49 A/P: Assessment: Cavitary pneumonia - managed by medical services H/O PE - Pulmonary embolism, pulmonary hemorrhage in mid 2018 (long hospitalization) - Hemoptysis and pulmonary hemorrhage necessitating discontinuation of Eliquis and aspirin in mid-August 2018; currently on warfarin that is being managed by Dr Parsons CAD: - 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 - Cardiac cath from December 30, 2013 in which successful GAURI x 2, one to the proximal and one to the mid vessel LAD, was done. 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 Styles states he is low risk for a cardiovascular event. It did show a small, mild intensity, reversible apical defect with a small amout of inducible ischemia - Echo of 03-28-[address] Styles LVEF 55-60%. Mild concentric hypertrophy. LA and RA are mildly dilated. PASP approx 47 mmHg. 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 Pacemaker currently in the VVIR mode, due to permanent atrial fib. - The patient had a pulse generator change out on 12/18/2011 and in July. The device is functioning normally per last interrogation of Jan 12, 2022 GI - History of ulcerative colitis, being managed by Dr. Parsons and Dr. Seymour Sleep apnea - for which he is on Bi-pap tx Hyperlipidemia - being treated with rosuvastatin. Carotid dz - Mild carotid arterial disease that has been followed by Dr. Mcdaniel Impaired fasting glucose Obesity - Elevated BMI of approx 30 COVID (+) in December 2021 - received BAM infusion Plan: Records from Dr. Raines reviewed Continue current cardiac regimen Pulmonary tele visit scheduled for today - may need to consider transfer to tertiary care facility with pulmonary services Continue Lovenox for now until determination has been made regarding possible bronchoscopy Monitor lab Replace electrolytes as needed Discussed plan of care with TOSHA Braun MD FACP FAC CCDS August 14, 2022 15:41
[2022-08-14 15:53] VITALS: BP 146/63
--- NOTE | 2022-08-14 16:24 | Pulmonary Consultation ---
History of Present Illness History of Present Illness Date Seen by Provider: August 14, 2022 Time Seen by Provider: 16:23 Date of Admission (Tele-pulmonary Physician , consultation as per request of PCP Service provided via interactive audio and video telecommunications [employer] system to a patient admitted to [facility]. patients Alba and RN present during interview HX formrr smoker ++environmental allergies No new pets or birds at house No recent travel No sick contacts [id number] exposure to mold, hot tubs, aerosols H/o PNA few times befor - fully recovered H/o hemoptysis 2019 on Eliquis , s/p FOB - neg Cx or path ( complicated by long stay requaring intubation ) HPI developed symptoms of cough about 2 months ago - was TX with AVX ( one or 2 courses) - no cxr no fever, or systemic complains - was going to rehab exercise with same level of performance until few daysPTA + hemoptysis - dark coagulated clots , mostly at night - few weeks dyspnea on exertion- few days No chest pain, wheezing, stridor, trouble swallowing, adentulous FAMILY HISTORY - no pulmonary condition, no h/o clotting problems As per patient , no improvement being inpatient with ABX IV reviewed CT chest 2019 - RLL bullae ( right under fissure ) , no lung nodule/masses CTchest 08/11/22 - RUL peryhilar consolidation , RLL thick wall avitary lesion and LLL smaller cavitary lesion Assessment /plan Patient with infiltrates/cavitary lesions bilaterally : RUL peryhilar consolidation , RLL thick wall avitary lesion and LLL smaller cavitatry lesion ( no bullous changes at cavitary locations seen on CT 2019 ) *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 primary ? ( has sqamous cell CA - left ear - but less likely without invading first neck LN ) Patient is very reluctant to have invasive testing ( bronchoscopy )- which will be a recommended / advised way to obtain definitive Dx CT guided Bx of RLL cavity can be done ( close to pleura) , but yield will be low with relatively higher complication risk ( not recommended ) Plan ( incorporating patient wishes ) - agree with GP/GN / anaerobic coverage - sent histolasma Ag - less likely cripto/blast based on residence in [place] - await AFB - check sputum for funal , nocardia - one might consider ECHO if + bacteremia , or new location of lesions - age screening for CA / or base don symptoms If no improvement with ABX , no definitive Dx from tests above , patient will need bronchoscopy for Dx purposes ( if agreed ) If worsening hemoptysis( life threatening ) - will need bronchoscopy - Coumadin was on hold Discussed with patient All questions were answered. Plans in collaboration with bedside consultants and IM MDs. RN to reach out if any questions or concerns Dr Jaqueline stanton for update , will discuss Allergies and Home Medications Allergies Coded Allergies: Sulfa (Sulfonamide Antibiotics) (Verified Allergy, Unknown, 08/31/18) montelukast (Unverified Adverse Reaction, Unknown, 06/08/16) Hallucinations per pt Home Medications Acetaminophen 500 Mg Tablet, 500-1,000 MG PO Q8H PRN for PAIN-MILD (1-4) OR TEMPATURE, (Reported) Ascorbic Acid 500 Mg Tablet, 500 MG PO DAILY, (Reported) Aspirin 81 Mg Tablet.dr, 81 MG PO Q48H, (Reported) DUE AUGUST 11, 2022 Cholecalciferol (Vitamin D3) 125 Mcg Capsule, 125 MCG PO DAILY, (Reported) Diltiazem HCl 120 Mg Cap.er.24h, 120 MG PO DAILY, (Reported) Duloxetine HCl 20 Mg Capsule.dr, 20 MG PO Q12H, (Reported) Fluticasone Propionate 50 Mcg/Actuation [place].susp, 1 SPRAY NSEACH BID PRN for CONGESTION, (Reported) Fluticasone/Vilanterol 1 Each Blst.w.dev, 1 PUFF INH DAILY, (Reported) Furosemide 20 Mg Tablet, 20 MG PO Q72H, (Reported) HAD ON 08/10/2022 Gluc Trevino/Chondro Trevino A/Vit C/Mn 750 Mg-600 Mg-55 Mg-5 Mg Tablet, 1 EACH PO 1200, (Reported) Lactobacillus Combination No.4 1 Each Capsule, 1 EA PO HS, (Reported) Loperamide HCl 2 Mg Tablet, 1 MG PO BID WITH MEALS, (Reported) TAKES 1/2 (2MG) TABLET Loratadine 10 Mg Tab.rapdis, 10 MG PO 1800 W/SUPPER, (Reported) Losartan Potassium 50 Mg Tablet, 25 MG PO 1800 W/SUPPER, (Reported) TAKES OF A 50MG TAB Mesalamine 1.2 Gm Tablet.dr, 2.4 GM PO 1800 W/ DINNER, (Reported) TAKES 2 (1.2GM) TABS Metoprolol Tartrate 25 Mg Tablet, 25 MG PO BID WITH MEALS, (Reported) Multivit-Min/FA/Lycopene/Lut 1 Each Tablet, 1 EA PO 1200, (Reported) Pantoprazole Sodium 40 Mg Tablet.dr, 40 MG PO DAILY, (Reported) Tamsulosin HCl 0.4 Mg Cap, 0.4 MG PO 1800 W/SUPPER, (Reported) Warfarin Sodium 3 Mg Tablet, 3 MG PO UD, (Reported) TAKES ON SUNDAY, SUNDAY, SUNDAY AND SUNDAY Warfarin Sodium 4 Mg Tablet, 4 MG PO UD, (Reported) TAKES ON SUNDAY, SUNDAY AND SUNDAY Past Medical/Social/Family Hx Patient Social History Marrital Status: Employed/Student: retired Tobacco Use?: No Tobacco type used: Cigarettes Smoking Status: Former Smoker Smokeless Tobacco Frequency: Former User Use of E-Cig and/or Vaping dev: No Substance use?: No Alcohol Use?: No Pt stated abuse/neglect: No Immunizations Up To Date Influenza Vaccine Up-to-Date: Yes; Up-to-Date First/Initial COVID19 Vaccinat: 12/31/20 Second COVID19 Vaccination Terence: 02/20 Tetanus Booster (TDap): Less Than 5 Years Date of Pneumonia Vaccine: August 05, 2018 Current Status Advance Directives: Yes Advance Directive Location: Copy from prev record Communicates: Verbally Primary Language: Ugandan Preferred Spoken Language: Ugandan Is interpretation needed?: No Implanted or Applied Medical D: Pacemaker, Stents Family Medical History Family Hx: SOCIAL HISTORY: -HISTORY OF SMOKING, QUIT YEARS AGO -DRUGS-DENIES USE -ETOH-DENIES USE PAST SURGICAL HISTORY: -09/25/2006-PACEMAKER BY DR. JUNIOR -03/30/2008-[address] [facility] -10/[facility]2011--CARDIAC CATH BY DR. HOYOS; NO INTERVENTION -10/2011-CHOLECYSTECTOMY BY DR. HAYS -10/17/2011--PACEMAKER REPLACED BY DR. JUNIOR -03/01/2012--COLONOSCOPY BY DR. WILLAMS. DX ULCERATIVE COLITIS -12/30/2013--CARDIAC CATH WITH STENTS X [address] 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 LYNN -04/2016--REMOVAL OF BENIGN MASS ON BACK BY DR. BENJAMIN. -05/2017--COLONOSCOPY BY DR. MCKOY -09/21/2019--PACEMAKER REPLACED BY DR. JUNIOR ADDITIONAL PMH: 08/31/2018-10/31/2018-PT HAD PNEUMONIA WITH RESPIRATORY FAILURE AND PLACED ON VENTILATOR. PT THEN WENT TO [facility] FOR REHAB FROM 10/31/2018--12/01/2018 Review of Systems Constitutional: see HPI, other Sepsis Event Evaluation Height, Weight, BMI Height: 5'6.00" Weight: 197lbs. 8.0oz. [id number]; 30.82 BMI Method:Stated Exam Exam Patient acknowledged, consented, and participated in this virtual visit which was conducted using real time audio/video Vital Signs Date Time Temp Pulse Resp B/P (MAP) Pulse Ox O2 Delivery O2 Flow Rate FiO2 08/14/22 15:00 96 Nasal Cannula 2.00 08/14/22 11:44 36.4 66 18 134/69 (90) 96 Nasal Cannula 2.00 08/14/22 09:46 95 Nasal Cannula 2.00 08/14/22 09:45 95 Nasal Cannula 2.00 08/14/22 08:00 Nasal Cannula 2.00 08/14/22 07:31 36.0 72 18 146/67 (93) 96 Nasal Cannula 2.00 08/14/22 03:56 36.6 80 20 145/64 (91) 95 Nasal Cannula 2.00 08/14/22 03:01 95 Nasal Cannula 2.00 08/14/22 00:20 37.0 72 18 141/66 (91) 97 Nasal Cannula 2.00 08/13/22 21:55 95 Nasal Cannula 2.00 08/13/22 20:49 Nasal Cannula 2.00 08/13/22 19:19 37.0 66 18 133/69 (90) 96 Nasal Cannula 2.00 I & O 08/14/22 07:00 Intake Total 2060 ml Balance 2060 ml Height & Weight Height: 5'6.00" Weight: 197lbs. 8.0oz. 73.253758vt; 30.82 BMI Method:Stated General Appearance: No Apparent Distress, WD/WN HEENT: PERRL/EOMI, Moist Mucous Membranes Neck: Full Range of Motion, Normal Inspection Respiratory: Lungs Clear, Normal Breath Sounds, No Accessory Muscle Use, No Respiratory Distress Cardiovascular: Regular Rate, Rhythm, No Murmur Capillary Refill: Less Than 3 Seconds Gastrointestinal: normal bowel sounds, non tender, soft, no organomegaly Extremity: No Pedal Edema, Other (dressing on left ankle no warmth or erythema extending beyond dressing) Neurologic/Psychiatric: Alert, No Motor/Sensory Deficits, Normal Mood/Affect Skin: Normal Color, Warm/Dry, Other (small scab on nose) Results Lab Laboratory Tests 08/13/22 05:00 08/14/22 05:49 Assessment/Plan Assessment/Plan 1 CIRO COYNE MD August 14, 2022 16:23
[2022-08-14] MEDS: LOSARTAN 50 MG (COZAAR) TAB PO SCH (17:52)
[2022-08-14] MEDS: TAMSULOSIN 0.4 MG (FLOMAX) CAP PO SCH (17:52)
[2022-08-14] MEDS: warFARin 4 MG (COUMADIN) TAB PO SCH (17:52)
[2022-08-14] MEDS: LORATADINE (CLARITIN) 10 MG TAB PO SCH (17:52)
[2022-08-14] MEDS ORDERED: warFARin 4 MG (COUMADIN) TAB PO SCH (18:00)
[2022-08-14] MEDS: LACTOBACILLUS ACIDOPHILUS (PROBIOTIC) CAPSULE PO SCH (18:13)
[2022-08-14 19:29] VITALS: BP 145/68
[2022-08-15] VITALS (7 sets, daily range): BP systolic 135–164; BP diastolic 64–77
[2022-08-15] MEDS: AMPICILLIN/SULBACTAM INJECTION 3 GM in NS (IVPB) 100 ML IV SCH ×4 (03:29→20:13)
[2022-08-15 06:17] LABS: BASOPHILS # (AUTO) 0.1 10^3/uL (0.0-0.1); BASOPHILS % (AUTO) 1 % (0-10); EOSINOPHILS # (AUTO) 0.4 10^3/uL (0.0-0.3); EOSINOPHILS % (AUTO) 5 % (0-10); HEMATOCRIT 36 % (40-54); LYMPHOCYTES # (AUTO) 1.5 10^3/uL (1.0-4.0); LYMPHOCYTES % (AUTO) 19 % (12-44); MEAN CORPUSCULAR HEMOGLOBIN 30 pg (25-34); MEAN CORPUSCULAR HGB CONC 33 g/dL (32-36); MEAN CORPUSCULAR VOLUME 91 fL (80-99); MEAN PLATELET VOLUME 9.7 fL (9.0-12.2); MONOCYTES # (AUTO) 0.8 10^3/uL (0.0-1.0); MONOCYTES % (AUTO) 10 % (0-12); NEUTROPHILS # (AUTO) 5.4 10^3/uL (1.8-7.8); NEUTROPHILS % (AUTO) 66 % (42-75); PLATELET COUNT 201 10^3/uL (130-400); WHITE BLOOD COUNT 8.2 10^3/uL (4.3-11.0)
[2022-08-15 06:30] LABS: POTASSIUM 3.8 MMOL/L (3.6-5.0)
[2022-08-15 06:32] LABS: CALCIUM 8.6 MG/DL (8.5-10.1)
[2022-08-15] MEDS: KCL 20 MEQ TAB (K-DUR) PO SCH (06:34)
[2022-08-15] MEDS: POTASSIUM CL 10MEQ/50ML IVPB 50 ML IV SCH (06:34)
[2022-08-15 06:35] LABS: PROTHROMBIN TIME PATIENT 22.6 SEC (12.2-14.7)
[2022-08-15 06:36] LABS: CREATININE SERUM 0.95 MG/DL (0.60-1.30)
[2022-08-15] MEDS: MAGNESIUM 1 GM/100 ML IVPB 100 ML IV SCH (06:40)
[2022-08-15] MEDS ORDERED: KCL 20 MEQ TAB (K-DUR) PO NR (08:00)
[2022-08-15] MEDS: ENOXAPARIN 100 MG/1 ML (LOVENOX) SYR SC SCH ×2 (08:11→20:12)
[2022-08-15] MEDS: DULoxetine 20 MG (CYMBALTA) CAP PO SCH ×2 (08:15→20:13)
[2022-08-15] MEDS: PANTOPRAZOLE 40 MG (PROTONIX) TAB PO SCH (08:15)
[2022-08-15] MEDS: meTOprolol TARTRATE 25 MG (LOPRESSOR) TABLET PO SCH ×2 (08:15→17:21)
[2022-08-15] MEDS: FLUTICASONE/VILANTEROL 100 MCG 14'S (BREO) IH SCH (08:16)
[2022-08-15] MEDS: dilTIAZem120 MG (CARDIZEM CD) CAP PO SCH (08:16)
[2022-08-15] MEDS: LACTOBACILLUS ACIDOPHILUS (PROBIOTIC) CAPSULE PO SCH ×3 (08:16→17:21)
[2022-08-15] MEDS: RT-ALBUTEROL HFA 8.5 GM INHALER IH SCH ×3 (08:17→19:35)
[2022-08-15] MEDS: DOCUSATE SODIUM 100 MG (COLACE) CAP PO SCH ×2 (08:21→20:13)
[2022-08-15] MEDS: SENNOSIDES 8.6 MG (SENOKOT) TAB PO SCH ×2 (08:22→20:13)
--- NOTE | 2022-08-15 08:38 | Progress Note ---
Subjective Subjective Date Seen by Provider: August 14, 2022 Time Seen by Provider: 08:20 Pt was seen with his in the room. Vishnu reports that he is feeling better every day. He continues to have a cough with shortness of breath at times. He reports that he had an event on the toilet where he passed out, fell to the floor. Staff had stepped away to give him privacy as he had requested. He states that he is feeling almost back to his usual state of health. He reports that he was told he may have to have a bronchoscope, he is NOT interested in that at this time due to his previous bad experience after a bronchoscope. His last scope resulted in an extremely prolonged course of illness with intubation, and up and down from inpatient rehab to the icu and back to 4th floor then eventually to the [facility] for a few months for recovery. Review of Systems General: No Chills, No Night Sweats; Fatigue, Appetite Pulmonary: Cough; No Pleuritic Chest Pain Cardiovascular: No: Chest Pain, Paroxysmal Noc. Dyspnea, Edema Gastrointestinal: Diarrhea; No: Nausea, Vomiting Neurological: No: Weakness, Incoordination All Other Systems Reviewed All Other Systems Reviewed: Yes Objective Exam Vital Signs Vital Signs Date Time Temp Pulse Resp B/P (MAP) Pulse Ox O2 Delivery O2 Flow Rate FiO2 08/15/22 07:44 36.5 68 20 155/72 (99) 97 Nasal Cannula 2.00 08/15/22 04:15 36.7 70 18 135/64 (87) 96 Nasal Cannula 2.00 08/15/22 00:18 36.4 68 18 144/70 (94) 95 Nasal Cannula 2.00 08/14/22 22:19 95 Nasal Cannula 2.00 08/14/22 20:40 Nasal Cannula 2.00 08/14/22 19:29 36.3 63 17 145/68 (93) 95 Room Air 08/14/22 15:53 36.5 64 18 146/63 (90) 97 Nasal Cannula 2.00 08/14/22 15:00 96 Nasal Cannula 2.00 08/14/22 11:44 36.4 66 18 134/69 (90) 96 Nasal Cannula 2.00 08/14/22 09:46 95 Nasal Cannula 2.00 08/14/22 09:45 95 Nasal Cannula 2.00 I & O 08/15/22 07:00 Intake Total 1980 ml Output Total 300 ml Balance 1680 ml General Appearance: No Apparent Distress, WD/WN HEENT: PERRL/EOMI, Moist Mucous Membranes Neck: Full Range of Motion, Normal Inspection Respiratory: Chest Non Tender, Normal Breath Sounds, No Accessory Muscle Use, No Respiratory Distress, Decreased Breath Sounds (in bases) Cardiovascular: Regular Rate, Rhythm, No Murmur Gastrointestinal: Normal Bowel Sounds, Non Tender, Soft Extremity: No Pedal Edema, Other (dressing on left ankle no warmth or erythema extending beyond dressing) Neurologic/Psychiatric: Alert, Oriented x3, No Motor/Sensory Deficits, Normal Mood/Affect Skin: Normal Color, Warm/Dry, Other (small scab on nose) Results Lab Laboratory Tests 08/15/22 05:47: White Blood Count 8.2, Red Blood Count 3.98L, Hemoglobin 12.0L, Hematocrit 36L, Mean Corpuscular Volume 91, Mean Corpuscular Hemoglobin 30, Mean Corpuscular Hemoglobin Concent 33, Red Cell Distribution Width 14.0, Platelet Count 201, Mean Platelet Volume 9.7, Immature Granulocyte % (Auto) 1, Neutrophils (%) (Auto) 66, Lymphocytes (%) (Auto) 19, Monocytes (%) (Auto) 10, Eosinophils (%) (Auto) 5, Basophils (%) (Auto) 1, Neutrophils # (Auto) 5.4, Lymphocytes # (Auto) 1.5, Monocytes # (Auto) 0.8, Eosinophils # (Auto) 0.4H, Basophils # (Auto) 0.1, Immature Granulocyte # (Auto) 0.1, Prothrombin Time 22.6H, INR Comment 2.0H, Sodium Level 137, Potassium Level 3.8, Chloride Level 107, Carbon Dioxide Level 19L, Anion Gap 11, Blood Urea Nitrogen 10, Creatinine 0.95, Estimat Glomerular Filtration Rate 81, BUN/Creatinine Ratio 11, Glucose Level 106H, Calcium Level 8 .6, Magnesium Level 2.0 Microbiology 08/11/22 Gram Stain - Final, Complete 08/11/22 Sputum Culture - Final, Complete Usual upper respiratory evette Corynebacterium pseudodiphther See Comments Escherichia coli 08/11/22 Blood Culture - Preliminary, Resulted No growth Assessment/Plan Assessment/Plan Assessment and Plan Pneumonia Mass-like consolidation in right lung Spiculated lesion in right lung Emphysema COPD Hypertension Atrial fibrillation Chronic anticoagualation Squamous cell Carcinoma of left ear Chronic Cough Depression Anxiety Chronic Inflammatory bowel disease Pneumonia with Mass-like consolidation in right lung and Spiculated lesion in right lung with the complications of Emphysema and COPD - pt has TB testing pending - culture report showed e.coli - waiting on final report - continue with Unasyn - Consult to Pulmonary called today to on-call physician Hypertension with chronic Atrial fibrillation with pt on Chronic anticoagualation - pt slightly sub therapeutic - defer to cardiology on his anticoagulation - continue with current medication regimen Squamous cell Carcinoma of left ear -surgery planned for this weekend. Chronic Cough - supportive care Depression - pt on cymbalta Chronic Inflammatory bowel disease - the mesalamine has been continued CODEY BARILLAS MD August 15, 2022 08:38
--- NOTE | 2022-08-15 08:38 | Progress Note ---
Subjective Subjective Date Seen by Provider: August 15, 2022 Time Seen by Provider: 08:38 Pt reports that he is feeling better every day. He states that he had trouble with loose stools and had an accident in bed. He reports that he still has a cough, is bringing up some mucous. Review of Systems General: No Chills, No Night Sweats; Fatigue, Appetite (improved) Pulmonary: Dyspnea, Cough; No Pleuritic Chest Pain Cardiovascular: No: Chest Pain, Paroxysmal Noc. Dyspnea, Edema Gastrointestinal: Diarrhea; No: Nausea, Vomiting, Abdominal Pain Genitourinary: Frequency Neurological: No: Weakness, Incoordination All Other Systems Reviewed All Other Systems Reviewed: Yes Objective Exam Vital Signs Vital Signs Date Time Temp Pulse Resp B/P (MAP) Pulse Ox O2 Delivery O2 Flow Rate FiO2 08/15/22 07:44 36.5 68 20 155/72 (99) 97 Nasal Cannula 2.00 08/15/22 04:15 36.7 70 18 135/64 (87) 96 Nasal Cannula 2.00 08/15/22 00:18 36.4 68 18 144/70 (94) 95 Nasal Cannula 2.00 08/14/22 22:19 95 Nasal Cannula 2.00 08/14/22 20:40 Nasal Cannula 2.00 08/14/22 19:29 36.3 63 17 145/68 (93) 95 Room Air 08/14/22 15:53 36.5 64 18 146/63 (90) 97 Nasal Cannula 2.00 08/14/22 15:00 96 Nasal Cannula 2.00 08/14/22 11:44 36.4 66 18 134/69 (90) 96 Nasal Cannula 2.00 08/14/22 09:46 95 Nasal Cannula 2.00 08/14/22 09:45 95 Nasal Cannula 2.00 I & O 08/15/22 07:00 Intake Total 1980 ml Output Total 300 ml Balance 1680 ml General Appearance: No Apparent Distress, WD/WN HEENT: PERRL/EOMI, Moist Mucous Membranes Neck: Full Range of Motion, Normal Inspection Respiratory: Chest Non Tender, Normal Breath Sounds, No Accessory Muscle Use, No Respiratory Distress, Decreased Breath Sounds (in bases) Cardiovascular: Regular Rate, Rhythm, No Murmur Gastrointestinal: Normal Bowel Sounds, Non Tender, Soft Extremity: No Pedal Edema, Other (dressing on left ankle no warmth or erythema extending beyond dressing) Neurologic/Psychiatric: Alert, Oriented x3, No Motor/Sensory Deficits, Normal Mood/Affect Skin: Normal Color, Warm/Dry, Other (small scab on nose) Results Lab Laboratory Tests 08/15/22 05:47: White Blood Count 8.2, Red Blood Count 3.98L, Hemoglobin 12.0L, Hematocrit 36L, Mean Corpuscular Volume 91, Mean Corpuscular Hemoglobin 30, Mean Corpuscular Hemoglobin Concent 33, Red Cell Distribution Width 14.0, Platelet Count 201, Mean Platelet Volume 9.7, Immature Granulocyte % (Auto) 1, Neutrophils (%) (Auto) 66, Lymphocytes (%) (Auto) 19, Monocytes (%) (Auto) 10, Eosinophils (%) (Auto) 5, Basophils (%) (Auto) 1, Neutrophils # (Auto) 5.4, Lymphocytes # (Auto) 1.5, Monocytes # (Auto) 0.8, Eosinophils # (Auto) 0.4H, Basophils # (Auto) 0.1, Immature Granulocyte # (Auto) 0.1, Prothrombin Time 22.6H, INR Comment 2.0H, S odium Level 137, Potassium Level 3.8, Chloride Level 107, Carbon Dioxide Level 19L, Anion Gap 11, Blood Urea Nitrogen 10, Creatinine 0.95, Estimat Glomerular Filtration Rate 81, BUN/Creatinine Ratio 11, Glucose Level 106H, Calcium Level 8.6, Magnesium Level 2.0 Microbiology 08/11/22 Gram Stain - Final, Complete 08/11/22 Sputum Culture - Final, Complete Usual upper respiratory evette Corynebacterium pseudodiphther See Comments Escherichia coli 08/11/22 Blood Culture - Preliminary, Resulted No growth Assessment/Plan Assessment/Plan Assessment and Plan Pneumonia Mass-like consolidation in right lung Spiculated lesion in right lung Emphysema COPD Hypertension Atrial fibrillation Chronic anticoagulation Squamous cell Carcinoma of left ear Chronic Cough Depression Anxiety Chronic Inflammatory bowel disease Pneumonia with Mass-like consolidation in right lung and Spiculated lesion in right lung with the complications of Emphysema and COPD - pt has TB testing pending - culture report showed e.coli - waiting on final report - continue with Unasyn - Consult to Pulmonary called Sunday - agree with waiting on pt's TB labs and histo labs Hypertension with chronic Atrial fibrillation with pt on Chronic anticoagulation - pt therapeutic - defer to cardiology on his anticoagulation - continue with current medication regimen Squamous cell Carcinoma of left ear -surgery planned for this weekend, advised pt to reschedule the intervention due to current illness and need for dvt prophylaxis and determination of source of acute illness. Chronic Cough - supportive care Depression - pt on cymbalta Chronic Inflammatory bowel disease - the mesalamine has been continued. DVT prophylaxis with coumadin and scd;s GI prophylaxis with ppi therapy and lactobacillus CODEY BARILLAS MD August 15, 2022 08:38
--- NOTE | 2022-08-15 13:34 | Progress Note - Cardiology ---
Cardiology SOAP Progress Note Objective: I&O/Vital Signs 08/15/22 08/16/22 08/16/22 08/16/22 23:46 03:25 07:53 07:53 Temp 36.6 36.4 Pulse 72 71 Resp 18 18 B/P (MAP) 159/71 (100) 157/67 (97) Pulse Ox 97 96 O2 Delivery NIV CPAP NIV CPAP Nasal Cannula O2 Flow Rate 2.00 2.00 2.00 2.00 08/16/22 07:56 Temp 36.3 Pulse 69 Resp 20 B/P (MAP) 153/71 (98) Pulse Ox 97 O2 Delivery Nasal Cannula O2 Flow Rate 2.00 08/16/22 00:00 Intake Total 1330 ml Balance 1330 ml Weight (Pounds): 197 Weight (Ounces): 8.0 Weight (Calculated Kilograms): 73.604714 Constitutional: AAO x 3 Respiratory: No accessory muscle use, No respiratory distress, No stridor, No wheezing; other (coarse breath sounds) Cardiovascular: regular rate-rhythm, S1 and S2; No diastolic murmur, No systolic murmur Gastrointestional: soft; No guarding; audible bowel sounds Extremities: No pedal edema; no lower extremity edema bilateral Neurologic/Psychiatric: other (moves all extremities) Skin: normal color, warm/dry; No cyanosis, No cool, No diaphoresis, No rash on exposed areas, No ulcerations on exposed areas Results/Procedures: Labs Laboratory Tests 08/16/22 05:15: White Blood Count 7.8, Red Blood Count 3.88L, Hemoglobin 11.7L, Hematocrit 35L, Mean Corpuscular Volume 91, Mean Corpuscular Hemoglobin 30, Mean Corpuscular Hemoglobin Concent 33, Red Cell Distribution Width 14.3, Platelet Count 199, Mean Platelet Volume 9.8, Immature Granulocyte % (Auto) 2, Neutrophils (%) (Auto) 65, Lymphocytes (%) (Auto) 20, Monocytes (%) (Auto) 10, Eosinophils (%) (Auto) 4, Basophils (%) (Auto) 0, Neutrophils # (Auto) 5.0, Lymphocytes # (Auto) 1.5, Monocytes # (Auto) 0.8, Eosinophils # (Auto) 0.3, Basophils # (Auto) 0.0, Immature Granulocyte # (Auto) 0.1, Prothrombin Time 23.6H, INR Comment 2.1H, Sodium Level 138, Potassium Level 3.9, Chloride Level 107, Carbon Dioxide Level 23, Anion Gap 8, Blood Urea Nitrogen 10, Creatinine 0.96, Estimat Glomerular Filtration Rate 80, BUN/Creatinine Ratio 10, Glucose Level 106H, Calcium Level 8.8, Magnesium Level 2.0 Microbiology 08/11/22 Gram Stain - Final, Complete 08/11/22 Sputum Culture - Final, Complete Usual upper respiratory evette Corynebacterium pseudodiphther See Comments Escherichia coli 08/11/22 Blood Culture - Preliminary, Resulted No growth A/P: Assessment: Cavitary pneumonia - managed by medical services H/O PE - Pulmonary embolism, pulmonary hemorrhage in mid 2018 (long hospitalization) - Hemoptysis and pulmonary hemorrhage necessitating discontinuation of Eliquis and aspirin in mid-August 2018; currently on warfarin that is being managed by Dr Parsons CAD: - 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 - Cardiac cath from December 30, 2013 in which successful GAURI x 2, one to the proximal and one to the mid vessel LAD, was done. 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 Styles states he is low risk for a cardiovascular event. It did show a small, mild intensity, reversible apical defect with a small amout of inducible ischemia - Echo of 03-28-[address] Styles LVEF 55-60%. Mild concentric hypertrophy. LA and RA are mildly dilated. PASP approx 47 mmHg. 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 Pacemaker currently in the VVIR mode, due to permanent atrial fib. - The patient had a pulse generator change out on 12/18/2011 and in July. The device is functioning normally per last interrogation of Jan 12, 2022 GI - History of ulcerative colitis, being managed by Dr. Parsons and Dr. Seymour Sleep apnea - for which he is on Bi-pap tx Hyperlipidemia - being treated with rosuvastatin. Carotid dz - Mild carotid arterial disease that has been followed by Dr. Mcdaniel Impaired fasting glucose Obesity - Elevated BMI of approx 30 COVID (+) in December 2021 - received BAM infusion Plan: Continue current cardiac regimen Pulmonary tele visit yesterday (notes reviewed) - may need to consider transfer to tertiary care facility with pulmonary services Continue Lovenox for now until determination has been made regarding possible bronchoscopy Monitor lab Replace electrolytes as needed VIET CHRISTIAN August 15, 2022 13:34
--- NOTE | 2022-08-15 13:44 | Progress Note - Cardiology ---
Cardiology SOAP Progress Note Subjective: Continue to have productive cough Shortness of breath with activity Soreness in the chest with coughing No n/v/d No focal weakness Gen weakness and malaise No swelling Objective: I&O/Vital Signs 08/15/22 08/15/22 08/15/22 08/15/22 04:15 07:44 08:00 08:17 Temp 36.7 36.5 Pulse 70 68 Resp 18 20 B/P (MAP) 135/64 (87) 155/72 (99) Pulse Ox 96 97 O2 Delivery Nasal Cannula Nasal Cannula Nasal Cannula O2 Flow Rate 2.00 2.00 2.00 2.00 08/15/22 08/15/22 08/15/22 08:17 08:46 11:54 Temp 36.5 Pulse 65 Resp 20 B/P (MAP) 150/71 (97) Pulse Ox 96 O2 Delivery Nasal Cannula Nasal Cannula O2 Flow Rate 2.00 2.00 2.00 08/15/22 00:00 Intake Total 1780 ml Balance 1780 ml Weight (Pounds): 197 Weight (Ounces): 8.0 Weight (Calculated Kilograms): 73.693562 Constitutional: AAO x 3 Respiratory: No accessory muscle use, No respiratory distress, No stridor, No wheezing; other (coarse breath sounds) Cardiovascular: regular rate-rhythm, S1 and S2; No diastolic murmur, No systolic murmur Gastrointestional: soft; No guarding; audible bowel sounds Extremities: No pedal edema; no lower extremity edema bilateral Neurologic/Psychiatric: other (moves all extremities) Skin: normal color, warm/dry; No cyanosis, No cool, No diaphoresis, No rash on exposed areas, No ulcerations on exposed areas Results/Procedures: Labs Laboratory Tests 08/15/22 05:47: White Blood Count 8.2, Red Blood Count 3.98L, Hemoglobin 12.0L, Hematocrit 36L, Mean Corpuscular Volume 91, Mean Corpuscular Hemoglobin 30, Mean Corpuscular Hemoglobin Concent 33, Red Cell Distribution Width 14.0, Platelet Count 201, Mean Platelet Volume 9.7, Immature Granulocyte % (Auto) 1, Neutrophils (%) (Auto) 66, Lymphocytes (%) (Auto) 19, Monocytes (%) (Auto) 10, Eosinophils (%) (Auto) 5, Basophils (%) (Auto) 1, Neutrophils # (Auto) 5.4, Lymphocytes # (Auto) 1.5, Monocytes # (Auto) 0.8, Eosinophils # (Auto) 0.4H, Basophils # (Auto) 0.1, Immature Granulocyte # (Auto) 0.1, Prothrombin Time 22.6H, INR Comment 2.0H, Sodium Level 137, Potassium Level 3.8, Chloride Level 107, Carbon Dioxide Level 19L, Anion Gap 11, Blood Urea Nitrogen 10, Creatinine 0.95, Estimat Glomerular Filtration Rate 81, BUN/Creatinine Ratio 11, Glucose Level 106H, Calcium Level 8.6, Magnesium Level 2.0 Microbiology 08/11/22 Gram Stain - Final, Complete 08/11/22 Sputum Culture - Final, Complete Usual upper respiratory evette Corynebacterium pseudodiphther See Comments Escherichia coli 08/11/22 Blood Culture - Preliminary, Resulted No growth A/P: Assessment: Cavitary pneumonia - managed by Medical services H/O PE - Pulmonary embolism, pulmonary hemorrhage in mid 2018 (long hospitalization) - Hemoptysis and pulmonary hemorrhage necessitating discontinuation of Eliquis and aspirin in mid-August 2018; currently on warfarin that is being managed by Dr Parsons CAD: - 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 - Cardiac cath from December 30, 2013 in which successful GAURI x 2, one to the proximal and one to the mid vessel LAD, was done. 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 Styles states he is low risk for a cardiovascular event. It did show a small, mild intensity, reversible apical defect with a small amout of inducible ischemia - Echo of 03-28-[address] Styles LVEF 55-60%. Mild concentric hypertrophy. LA and RA are mildly dilated. PASP approx 47 mmHg. 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 Pacemaker currently in the VVIR mode, due to permanent atrial fib. - The patient had a pulse generator change out on 12/18/2011 and in July. The device is functioning normally per last interrogation of Jan 12, 2022 GI - History of ulcerative colitis, being managed by Dr. Parsons and Dr. Seymour Sleep apnea - for which he is on Bi-pap tx Hyperlipidemia - being treated with rosuvastatin. Carotid dz - Mild carotid arterial disease that has been followed by Dr. Mcdaniel Impaired fasting glucose Elevated BMI of approx 30 COVID (+) in December 2021 - received BAM infusion Plan: Continue current cardiac regimen Pulmonary tele visit yesterday (notes reviewed) - may need to consider transfer to tertiary care facility with pulmonary services Continue Lovenox for now until determination has been made regarding possible bronchoscopy Monitor lab Replace electrolytes as needed TOSHA JUNIOR MD FACP FAC CCDS August 15, 2022 13:44
[2022-08-15] MEDS: LORATADINE (CLARITIN) 10 MG TAB PO SCH (17:20)
[2022-08-15] MEDS: TAMSULOSIN 0.4 MG (FLOMAX) CAP PO SCH (17:20)
[2022-08-15] MEDS: LOSARTAN 50 MG (COZAAR) TAB PO SCH (17:21)
[2022-08-15] MEDS: warFARin 4 MG (COUMADIN) TAB PO SCH (17:21)
[2022-08-15] MEDS: ASPIRIN E.C. 81 MG (ECOTRIN) TAB PO SCH (20:56)
[2022-08-16] VITALS (7 sets, daily range): BP systolic 145–159; BP diastolic 62–79
[2022-08-16] MEDS: AMPICILLIN/SULBACTAM INJECTION 3 GM in NS (IVPB) 100 ML IV SCH ×4 (03:22→20:04)
[2022-08-16 05:28] LABS: BASOPHILS % (AUTO) 0 % (0-10); EOSINOPHILS # (AUTO) 0.3 10^3/uL (0.0-0.3); EOSINOPHILS % (AUTO) 4 % (0-10); HEMATOCRIT 35 % (40-54); HEMOGLOBIN 11.7 g/dL (13.3-17.7); LYMPHOCYTES # (AUTO) 1.5 10^3/uL (1.0-4.0); LYMPHOCYTES % (AUTO) 20 % (12-44); MEAN CORPUSCULAR HEMOGLOBIN 30 pg (25-34); MEAN CORPUSCULAR HGB CONC 33 g/dL (32-36); MEAN CORPUSCULAR VOLUME 91 fL (80-99); MEAN PLATELET VOLUME 9.8 fL (9.0-12.2); MONOCYTES # (AUTO) 0.8 10^3/uL (0.0-1.0); MONOCYTES % (AUTO) 10 % (0-12); NEUTROPHILS % (AUTO) 65 % (42-75); PLATELET COUNT 199 10^3/uL (130-400); WHITE BLOOD COUNT 7.8 10^3/uL (4.3-11.0)
[2022-08-16 05:40] LABS: INR 2.1 (0.8-1.4); PROTHROMBIN TIME PATIENT 23.6 SEC (12.2-14.7)
[2022-08-16 05:46] LABS: POTASSIUM 3.9 MMOL/L (3.6-5.0)
[2022-08-16 05:47] LABS: CALCIUM 8.8 MG/DL (8.5-10.1)
[2022-08-16] MEDS: POTASSIUM CL 10MEQ/50ML IVPB 50 ML IV SCH (05:47)
[2022-08-16] MEDS: KCL 20 MEQ TAB (K-DUR) PO SCH (05:47)
[2022-08-16 05:52] LABS: CREATININE SERUM 0.96 MG/DL (0.60-1.30)
[2022-08-16] MEDS: MAGNESIUM 1 GM/100 ML IVPB 100 ML IV SCH (06:07)
[2022-08-16] MEDS: RT-ALBUTEROL HFA 8.5 GM INHALER IH SCH ×3 (07:51→20:35)
[2022-08-16] MEDS: FLUTICASONE/VILANTEROL 100 MCG 14'S (BREO) IH SCH (07:52)
[2022-08-16] MEDS ORDERED: KCL 20 MEQ TAB (K-DUR) PO ONE (08:00)
--- NOTE | 2022-08-16 08:19 | Progress Note ---
Subjective Subjective Date Seen by Provider: August 16, 2022 Time Seen by Provider: 08:15 Pt reports that he is feeling better today - he still has a cough, has loose stools, but otherwise is feeling improved. He denies chest pain. He feels like his bipap has helped his symptoms and has helped his daytime fatigue. Review of Systems General: No Chills, No Night Sweats; Fatigue, Appetite (improved) Pulmonary: Dyspnea, Cough; No Pleuritic Chest Pain Cardiovascular: No: Chest Pain, Paroxysmal Noc. Dyspnea, Edema Gastrointestinal: Diarrhea; No: Nausea, Vomiting, Abdominal Pain Genitourinary: Frequency Neurological: No: Weakness, Incoordination All Other Systems Reviewed All Other Systems Reviewed: Yes Objective Exam Vital Signs Vital Signs Date Time Temp Pulse Resp B/P (MAP) Pulse Ox O2 Delivery O2 Flow Rate FiO2 08/16/22 07:56 36.3 69 20 153/71 (98) 97 Nasal Cannula 2.00 08/16/22 07:53 2.00 08/16/22 07:53 Nasal Cannula 2.00 08/16/22 03:25 36.4 71 18 157/67 (97) 96 NIV CPAP 2.00 08/15/22 23:46 36.6 72 18 159/71 (100) 97 NIV CPAP 2.00 08/15/22 20:10 Nasal Cannula 2.00 08/15/22 19:50 36.8 65 18 164/77 (106) 96 Nasal Cannula 2.00 08/15/22 19:35 Nasal Cannula 2.00 08/15/22 16:27 36.7 65 18 161/71 (101) 97 Nasal Cannula 2.00 08/15/22 14:44 97 Nasal Cannula 2.00 08/15/22 11:54 36.5 65 20 150/71 (97) 96 Nasal Cannula 2.00 08/15/22 08:46 Nasal Cannula 2.00 I & O 08/16/22 07:00 Intake Total 1530 ml Output Total 100 ml Balance 1430 ml General Appearance: No Apparent Distress, WD/WN HEENT: PERRL/EOMI, Moist Mucous Membranes Neck: Full Range of Motion, Normal Inspection Respiratory: Chest Non Tender, Normal Breath Sounds, No Accessory Muscle Use, No Respiratory Distress, Decreased Breath Sounds (in bases) Cardiovascular: Regular Rate, Rhythm, No Murmur Gastrointestinal: Normal Bowel Sounds, Non Tender, Soft Extremity: No Pedal Edema, Other (dressing on left ankle no warmth or erythema extending beyond dressing) Neurologic/Psychiatric: Alert, Oriented x3, No Motor/Sensory Deficits, Normal Mood/Affect Skin: Normal Color, Warm/Dry, Other (small scab on nose) Results Lab Laboratory Tests 08/16/22 05:15: White Blood Count 7.8, Red Blood Count 3.88L, Hemoglobin 11.7L, Hematocrit 35L, Mean Corpuscular Volume 91, Mean Corpuscular Hemoglobin 30, Mean Corpuscular Hemoglobin Concent 33, Red Cell Distribution Width 14.3, Platelet Count 199, Mean Platelet Volume 9.8, Immature Granulocyte % (Auto) 2, Neutrophils (%) (Auto) 65, Lymphocytes (%) (Auto) 20, Monocytes (%) (Auto) 10, Eosinophils (%) (Auto) 4, Basophils (%) (Auto) 0, Neutrophils # (Auto) 5.0, Lymphocytes # (Auto) 1.5, Monocytes # (Auto) 0.8, Eosinophils # (Auto) 0.3, Basophils # (Auto) 0.0, Immature Granulocyte # (Auto) 0.1, Prothrombin Time 23.6H, INR Comment 2.1H, Sodium Level 138, Potassium Level 3.9, Chloride Level 107, Carbon Dioxide Level 23, Anion Gap 8, Blood Urea Nitrogen 10, Creatinine 0.96, Estimat Glomerular Filtration Rate 80, BUN/Creatinine Ratio 10, Glucose Level 106H, Calcium Level 8.8, Magnesium Level 2.0 Microbiology 08/11/22 Gram Stain - Final, Complete 08/11/22 Sputum Culture - Final, Complete Usual upper respiratory evette Corynebacterium pseudodiphther See Comments Escherichia coli 08/11/22 Blood Culture - Preliminary, Resulted No growth Assessment/Plan Assessment/Plan Assessment and Plan Pneumonia Mass-like consolidation in right lung Spiculated lesion in right lung Emphysema COPD Hypertension Atrial fibrillation Chronic anticoagulation Squamous cell Carcinoma of left ear Chronic Cough Depression Anxiety Chronic Inflammatory bowel disease Pneumonia with Mass-like consolidation in right lung and Spiculated lesion in right lung with the complications of Emphysema and COPD - TB testing negative, waiting on Histoplasma labs - culture report showed e.coli - waiting on final report - discussed with lab - they will run the sensitivities on the ecoli - continue with Unasyn - Consult to Pulmonary - Hypertension with chronic Atrial fibrillation with pt on Chronic anticoagulation - pt therapeutic - defer to cardiology on his anticoagulation - continue with current medication regimen Squamous cell Carcinoma of left ear -surgery planned for this weekend, advised pt to reschedule the intervention due to current illness and need for dvt prophylaxis and determination of source of acute illness. Chronic Cough - supportive care Depression - pt on cymbalta Chronic Inflammatory bowel disease - the mesalamine has been continued. DVT prophylaxis with coumadin and scd;s GI prophylaxis with ppi therapy and lactobacillus CODEY BARILLAS MD August 16, 2022 08:19
[2022-08-16] MEDS: LACTOBACILLUS ACIDOPHILUS (PROBIOTIC) CAPSULE PO SCH ×3 (08:23→17:06)
[2022-08-16] MEDS: PANTOPRAZOLE 40 MG (PROTONIX) TAB PO SCH (08:24)
[2022-08-16] MEDS: meTOprolol TARTRATE 25 MG (LOPRESSOR) TABLET PO SCH ×2 (08:24→17:06)
[2022-08-16] MEDS: ENOXAPARIN 100 MG/1 ML (LOVENOX) SYR SC SCH (08:25)
[2022-08-16] MEDS: DULoxetine 20 MG (CYMBALTA) CAP PO SCH ×2 (08:29→20:04)
[2022-08-16] MEDS: dilTIAZem120 MG (CARDIZEM CD) CAP PO SCH (08:29)
--- NOTE | 2022-08-16 08:33 | Progress Note - Cardiology ---
Cardiology SOAP Progress Note Subjective: Sitting up in recliner at the bedside at the bedside States he is feeling much better today No c/o CP SOB is improving Mild LE swelling Reports freq productive cough yesterday Objective: I&O/Vital Signs 08/16/22 08/16/22 08/17/22 08/17/22 21:36 23:21 03:15 07:21 Temp 36.2 36.6 36.7 Pulse 65 65 71 Resp 18 18 B/P (MAP) 145/62 (89) 144/70 (94) Pulse Ox 96 95 98 95 O2 Delivery NIV CPAP NIV CPAP Nasal Cannula O2 Flow Rate 2.00 2.00 2.00 FiO2 28 08/17/22 07:40 Temp 36.5 Pulse 74 Resp 18 B/P (MAP) 161/70 (100) Pulse Ox 95 O2 Delivery Nasal Cannula O2 Flow Rate 2.00 08/16/22 23:59 Intake Total 820 ml Balance 820 ml Weight (Pounds): 197 Weight (Ounces): 8.0 Weight (Calculated Kilograms): 73.066578 Constitutional: AAO x 3 Respiratory: No accessory muscle use, No respiratory distress, No stridor, No wheezing; other (coarse breath sounds with scattered rhonchi; diminished lower lobes bilat) Cardiovascular: regular rate-rhythm, S1 and S2; No diastolic murmur, No systolic murmur Gastrointestional: soft; No guarding; audible bowel sounds Extremities: No pedal edema; no lower extremity edema bilateral Neurologic/Psychiatric: other (moves all extremities) Skin: normal color, warm/dry; No cyanosis, No cool, No diaphoresis, No rash on exposed areas, No ulcerations on exposed areas Results/Procedures: Labs Laboratory Tests 08/16/22 10:10: Urine Color YELLOW, Urine Clarity CLEAR, Urine pH 6.0, Urine Specific [place] <=1.005, Urine Protein NEGATIVE, Urine Glucose (UA) NEGATIVE, Urine Ketones NEGATIVE, Urine Nitrite NEGATIVE, Urine Bilirubin NEGATIVE, Urine Urobilinogen 0.2, Urine Leukocyte Esterase NEGATIVE, Urine RBC (Auto) TRACE-IH, Urine RBC 2- 5H, Urine WBC RARE, Urine Crystals NONE, Urine Bacteria NEGATIVE, Urine Casts NONE, Urine Mucus NEGATIVE, Urine Culture Indicated NO 08/17/22 05:20: White Blood Count 7.9, Red Blood Count 4.03L, Hemoglobin 12.1L, Hematocrit 37L, Mean Corpuscular Volume 91, Mean Corpuscular Hemoglobin 30, Mean Corpuscular Hemoglobin Concent 33, Red Cell Distribution Width 14.1, Platelet Count 236, Mean Platelet Volume 9.6, Immature Granulocyte % (Auto) 2, Neutrophils (%) (Auto) 60, Lymphocytes (%) (Auto) 23, Monocytes (%) (Auto) 10, Eosinophils (%) (Auto) 4, Basophils (%) (Auto) 1, Neutrophils # (Auto) 4.7, Lymphocytes # (Auto) 1.8, Monocytes # (Auto) 0.8, Eosinophils # (Auto) 0.3, Basophils # (Auto) 0.1, Immature Granulocyte # (Auto) 0.1, Prothrombin Time 23.3H, INR Comment 2.1H, Sodium Level 140, Potassium Level 4.6, Chloride Level 106, Carbon Dioxide Level 26, Anion Gap 8, Blood Urea Nitrogen 10, Creatinine 1.07, Estimat Glomerular Filtration Rate 70, BUN/Creatinine Ratio 9, Glucose Level 99, Calcium Level 9.4, Magnesium Level 2.0 Microbiology 08/15/22 Gram Stain - Final, Resulted 08/15/22 Sputum Culture - Preliminary, Resulted Usual upper respiratory evette 08/11/22 Blood Culture - Final, Complete No growth A/P: Assessment: Cavitary pneumonia - managed by Medical services H/O PE - Pulmonary embolism, pulmonary hemorrhage in mid 2018 (long hospitalization) - Hemoptysis and pulmonary hemorrhage necessitating discontinuation of Eliquis and aspirin in mid-August 2018; currently on warfarin that is being managed by Dr Parsons CAD: - 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 - Cardiac cath from December 30, 2013 in which successful GAURI x 2, one to the proximal and one to the mid vessel LAD, was done. 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 Styles states he is low risk for a cardiovascular event. It did show a small, mild intensity, reversible apical defect with a small amout of inducible ischemia - Echo of 03-28-[address] Styles LVEF 55-60%. Mild concentric hypertrophy. LA and RA are mildly dilated. PASP approx 47 mmHg. 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 [place] sousa currently in the VVIR mode, due to permanent atrial fib. - The patient had a pulse generator change out on 12/18/2011 and in July. The device is functioning normally per last interrogation of Jan 12, 2022 GI - History of ulcerative colitis, being managed by Dr. Parsons and Dr. Seymour Sleep apnea - for which he is on Bi-pap tx Hyperlipidemia - being treated with rosuvastatin. Carotid dz - Mild carotid arterial disease that has been followed by Dr. Mcdaniel Impaired fasting glucose Elevated BMI of approx 30 COVID (+) in December 2021 - received BAM infusion Plan: BP not well controlled - increase losartan If no procedures are planned we advise Lovenox be stopped since INR is therapeutic. Replace electrolytes as needed VIET CHRISTIAN August 16, 2022 08:33
[2022-08-16] MEDS: SENNOSIDES 8.6 MG (SENOKOT) TAB PO SCH ×2 (08:46→20:04)
[2022-08-16] MEDS: DOCUSATE SODIUM 100 MG (COLACE) CAP PO SCH ×2 (08:46→20:04)
[2022-08-16] MEDS: LOSARTAN 50 MG (COZAAR) TAB PO SCH (08:53)
--- NOTE | 2022-08-16 09:24 | Diagnostic Imaging Report ---
INDICATION: Lower respiratory infection. EXAMINATION: PA and lateral chest. FINDINGS: There is postop change from CABG surgery. There is a dual-chamber pacemaker. There are some patchy infiltrates in the right upper lung, right lung base, and left lung. The right basilar consolidation appears cavitated. This was present on a study from 02/06/2022. IMPRESSION: The 6 cm cavitary lesion in the right lung base has increased in size since 02/06/2022. There are new areas of consolidation in the right upper lobe and an infiltrate in the left lung since the previous exam. The findings are stable compared to a CT dated 08/11/2022. Dictated by: Dictated on workstation # [id number]
[2022-08-16 10:15] LABS: BILIRUBIN,URINE NEGATIVE (NEGATIVE); CLARITY,URINE CLEAR; COLOR,URINE YELLOW; GLUCOSE, URINE (UA) NEGATIVE (NEGATIVE); KETONES,URINE NEGATIVE (NEGATIVE); LEUKOCYTE ESTERASE ,URINE NEGATIVE (NEGATIVE); NITRITE,URINE NEGATIVE (NEGATIVE); PROTEIN,URINE NEGATIVE (NEGATIVE)
[2022-08-16 10:22] LABS: BACTERIA,URINE NEGATIVE /HPF; WBC,URINE RARE /HPF
--- NOTE | 2022-08-16 14:11 | Physician Query Clarification ---
Physician Query-General Query to Physician: The medical record reflects the following clinical evidence: Clinical Indicators: Admission VS/LABS: HR 105, RR 18, BP 136/82, SpO2 91% sat on room air, T 36.9, WBC 14.7, lactic acid 2.30, then 1.59 Risk Factor(s): On suppressive for UC, Pneumonia/Mass like consolidation right lung Treatment: ER: Normal saline 500 mL Bolus, ceftriaxone IV, azithromycin IV, Sepsis, unspecified organism, present on admission Other explanation of clinical findings Unable to determine (no explanation for clinical findings) Please clarify and document your clinical opinion in the progress notes and discharge summary including the definitive and/or presumptive diagnosis, (suspected or probable), related to the above clinical findings. Please include clinical findings supporting your diagnosis. Melissa Greene, MSN, RN Clinical [employer]er [phone] [email or web address] PHYSICIAN RESPONSE: Based on the clinical findings in the record, please respond to the query above on this document as an addendum. Physician Response: Physician Response sepsis present on admission If you have questions please contact: Rv Service Technician: Ext: Thank you for your time and cooperation. Clinical [employer] V[employer] Top Installer/Rv Service Technician This is a permanent part of the medical record MELISSA GREENE August 16, 2022 14:11 CODEY BARILLAS MD Sep 05, 2022 21:40
[2022-08-16] MEDS: PHENAZOPYRIDINE 100 MG (PYRIDIUM) TABLET PO SCH ×2 (14:28→18:24)
--- NOTE | 2022-08-16 14:55 | Pulmonary Progress Note ---
Subjective Date Seen by a Provider: August 16, 2022 Time Seen by a Provider: 14:47 Subjective/Events-last exam (Tele-pulmonary Physician , consultation as per request of PCP Service provided via interactive audio and video telecommunications [employer] system to a patient admitted to [facility]. patients Alba and RN present during interview patient is feeling better - had good sleep, no chest pain , cough is less , no hemoptysis -on 3 l O2 good appetite cxr today with reported larger cavitary lesion by radiology CTchest 08/11/22 - RUL peryhilar consolidation , RLL thick wall avitary lesion and LLL smaller cavitary lesion Assessment /plan Patient with infiltrates/cavitary lesions bilaterally : RUL peryhilar consolidation , RLL thick wall avitary lesion and LLL smaller cavitatry lesion ( no bullous changes at cavitary locations seen on CT 2018 ) cxr today with reported larger cavitary lesion by radiology - but I do not think these is significant change *patient clinically better * sputum cx with usual resp evette ( including cortnobact ) and E- coli - AFB and fungal cx pending -fungal serology pending *hemoptysis is secondary to above - improved despite INR 2 Agree with cont Unasyn - await cx/ sens Ok to cont NIPPV for BRIDGER Discussed with patient All questions were answered. Plans in collaboration with bedside consultants and IM MDs. RN to reach out if any questions or concerns Dr Parsons paged for update , will discuss Sepsis Event Evaluation Height, Weight, BMI Height: 5'6.00" Weight: 197lbs. 8.0oz. 73.620326th; 30.82 BMI Method:Stated Exam Exam Patient acknowledged, consented, and participated in this virtual visit which was conducted using real time audio/video Vital Signs Date Time Temp Pulse Resp B/P (MAP) Pulse Ox O2 Delivery O2 Flow Rate FiO2 08/16/22 14:39 Nasal Cannula 2.00 96 08/16/22 11:40 36.6 60 16 150/79 (102) 96 Nasal Cannula 2.00 08/16/22 08:00 Nasal Cannula 2.00 08/16/22 07:56 36.3 69 20 153/71 (98) 97 Nasal Cannula 2.00 08/16/22 07:53 2.00 08/16/22 07:53 Nasal Cannula 2.00 08/16/22 03:25 36.4 71 18 157/67 (97) 96 NIV CPAP 2.00 08/15/22 23:46 36.6 72 18 159/71 (100) 97 NIV CPAP 2.00 08/15/22 20:10 Nasal Cannula 2.00 08/15/22 19:50 36.8 65 18 164/77 (106) 96 Nasal Cannula 2.00 08/15/22 19:35 Nasal Cannula 2.00 08/15/22 16:27 36.7 65 18 161/71 (101) 97 Nasal Cannula 2.00 I & O 08/16/22 07:00 Intake Total 1530 ml Output Total 100 ml Balance 1430 ml Height & Weight Height: 5'6.00" Weight: 197lbs. 8.0oz. 73.603442kc; 30.82 BMI Method:Stated General Appearance: No Apparent Distress, WD/WN HEENT: PERRL/EOMI, Moist Mucous Membranes Neck: Full Range of Motion, Normal Inspection Respiratory: Chest Non Tender, Normal Breath Sounds, No Accessory Muscle Use, No Respiratory Distress, Decreased Breath Sounds (in bases) Cardiovascular: Regular Rate, Rhythm, No Murmur Capillary Refill: Less Than 3 Seconds Gastrointestinal: normal bowel sounds, non tender, soft, no organomegaly Extremity: No Pedal Edema, Other (dressing on left ankle no warmth or erythema extending beyond dressing) Neurologic/Psychiatric: Alert, Oriented x3, No Motor/Sensory Deficits, Normal Mood/Affect Skin: Normal Color, Warm/Dry, Other (small scab on nose) Results Lab Laboratory Tests 08/15/22 05:47 08/16/22 05:15 Assessment/Plan Assessment/Plan 1 CIRO COYNE MD August 16, 2022 14:55
--- NOTE | 2022-08-16 17:00 | Progress Note - Cardiology ---
Cardiology SOAP Progress Note Subjective: Cough and shortness of breath are improving No cp or palp or syncope No n/v/d No focal weakness Gen weakness Objective: I&O/Vital Signs 08/16/22 08/16/22 08/16/22 08/16/22 07:53 07:53 07:56 08:00 Temp 36.3 Pulse 69 Resp 20 B/P (MAP) 153/71 (98) Pulse Ox 97 O2 Delivery Nasal Cannula Nasal Cannula Nasal Cannula O2 Flow Rate 2.00 2.00 2.00 2.00 08/16/22 08/16/22 08/16/22 11:40 14:39 15:23 Temp 36.6 36.3 Pulse 60 67 Resp 16 17 B/P (MAP) 150/79 (102) 151/70 (97) Pulse Ox 96 97 O2 Delivery Nasal Cannula Nasal Cannula Nasal Cannula O2 Flow Rate 2.00 2.00 2.00 FiO2 96 08/15/22 23:59 Intake Total 1330 ml Balance 1330 ml Weight (Pounds): 197 Weight (Ounces): 8.0 Weight (Calculated Kilograms): 73.944331 Constitutional: AAO x 3 Respiratory: No accessory muscle use, No respiratory distress, No stridor, No wheezing; other (coarse breath sounds with scattered rhonchi; diminished lower lobes bilat) Cardiovascular: regular rate-rhythm, S1 and S2; No diastolic murmur, No systolic murmur Gastrointestional: soft; No guarding; audible bowel sounds Extremities: No pedal edema; no lower extremity edema bilateral Neurologic/Psychiatric: other (moves all extremities) Skin: normal color, warm/dry; No cyanosis, No cool, No diaphoresis, No rash on exposed areas, No ulcerations on exposed areas Results/Procedures: Labs Laboratory Tests 08/16/22 05:15: White Blood Count 7.8, Red Blood Count 3.88L, Hemoglobin 11.7L, Hematocrit 35L, Mean Corpuscular Volume 91, Mean Corpuscular Hemoglobin 30, Mean Corpuscular Hemoglobin Concent 33, Red Cell Distribution Width 14.3, Platelet Count 199, Mean Platelet Volume 9.8, Immature Granulocyte % (Auto) 2, Neutrophils (%) (Auto) 65, Lymphocytes (%) (Auto) 20, Monocytes (%) (Auto) 10, Eosinophils (%) (Auto) 4, Basophils (%) (Auto) 0, Neutrophils # (Auto) 5.0, Lymphocytes # (Auto) 1.5, Monocytes # (Auto) 0.8, Eosinophils # (Auto) 0.3, Basophils # (Auto) 0.0, Immature Granulocyte # (Auto) 0.1, Prothrombin Time 23.6H, INR Comment 2.1H, Sodium Level 138, Potassium Level 3.9, Chloride Level 107, Carbon Dioxide Level 23, Anion Gap 8, Blood Urea Nitrogen 10, Creatinine 0.96, Estimat Glomerular Filtration Rate 80, BUN/Creatinine Ratio 10, Glucose Level 106H, Calcium Level 8.8, Magnesium Level 2.0 08/16/22 10:10: Urine Color YELLOW, Urine Clarity CLEAR, Urine pH 6.0, Urine Specific [place] <=1.005, Urine Protein NEGATIVE, Urine Glucose (UA) NEGATIVE, Urine Ketones NEGATIVE, Urine Nitrite NEGATIVE, Urine Bilirubin NEGATIVE, Urine Urobilinogen 0.2, Urine Leukocyte Esterase NEGATIVE, Urine RBC (Auto) TRACE-IH, Urine RBC 2- 5H, Urine WBC RARE, Urine Crystals NONE, Urine Bacteria NEGATIVE, Urine Casts NONE, Urine Mucus NEGATIVE, Urine Culture Indicated NO Microbiology 08/15/22 Gram Stain - Final, Resulted 08/15/22 Sputum Culture - Preliminary, Resulted Usual upper respiratory evette 08/11/22 Blood Culture - Final, Complete No growth A/P: Assessment: Cavitary pneumonia - managed by Medical services H/O PE - Pulmonary embolism, pulmonary hemorrhage in mid 2018 (long hospitalization) - Hemoptysis and pulmonary hemorrhage necessitating discontinuation of Eliquis and aspirin in mid-August 2018; currently on warfarin that is being managed by Dr Parsons CAD: - 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 - Cardiac cath from December 30, 2013 in which successful GAURI x 2, one to the proximal and one to the mid vessel LAD, was done. 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 Styles states he is low risk for a cardiovascular event. It did show a small, mild intensity, reversible apical defect with a small amout of inducible ischemia - Echo of 03-28-[address] Styles LVEF 55-60%. Mild concentric hypertrophy. LA and RA are mildly dilated. PASP approx 47 mmHg. 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 Pacemaker currently in the VVIR mode, due to permanent atrial fib. - The patient had a pulse generator change out on 12/18/2011 and in July. The device is functioning normally per last interrogation of Jan 12, 2022 GI - History of ulcerative colitis, being managed by Dr. Parsons and Dr. Seymour Sleep apnea - for which he is on Bi-pap tx Hyperlipidemia - being treated with rosuvastatin. Carotid dz - Mild carotid arterial disease that has been followed by Dr. Mcdaniel Impaired fasting glucose Elevated BMI of approx 30 COVID (+) in December 2021 - received [facility] infusion Plan: BP not well controlled - increase losartan If no procedures are planned we advise Lovenox be stopped since INR is therapeutic. Replace electrolytes as needed TOSHA JUNIOR MD FACP FAC CCDS August 16, 2022 17:00
[2022-08-16] MEDS: LORATADINE (CLARITIN) 10 MG TAB PO SCH (17:06)
[2022-08-16] MEDS: warFARin 4 MG (COUMADIN) TAB PO SCH (17:06)
[2022-08-16] MEDS: TAMSULOSIN 0.4 MG (FLOMAX) CAP PO SCH (17:06)
[2022-08-17] MEDS: AMPICILLIN/SULBACTAM INJECTION 3 GM in NS (IVPB) 100 ML IV SCH ×4 (03:14→20:35)
[2022-08-17 03:15] VITALS: BP 144/70
[2022-08-17 05:34] LABS: BASOPHILS # (AUTO) 0.1 10^3/uL (0.0-0.1); BASOPHILS % (AUTO) 1 % (0-10); EOSINOPHILS # (AUTO) 0.3 10^3/uL (0.0-0.3); EOSINOPHILS % (AUTO) 4 % (0-10); HEMATOCRIT 37 % (40-54); HEMOGLOBIN 12.1 g/dL (13.3-17.7); LYMPHOCYTES # (AUTO) 1.8 10^3/uL (1.0-4.0); LYMPHOCYTES % (AUTO) 23 % (12-44); MEAN CORPUSCULAR HEMOGLOBIN 30 pg (25-34); MEAN CORPUSCULAR HGB CONC 33 g/dL (32-36); MEAN CORPUSCULAR VOLUME 91 fL (80-99); MEAN PLATELET VOLUME 9.6 fL (9.0-12.2); MONOCYTES # (AUTO) 0.8 10^3/uL (0.0-1.0); MONOCYTES % (AUTO) 10 % (0-12); NEUTROPHILS # (AUTO) 4.7 10^3/uL (1.8-7.8); NEUTROPHILS % (AUTO) 60 % (42-75); PLATELET COUNT 236 10^3/uL (130-400); WHITE BLOOD COUNT 7.9 10^3/uL (4.3-11.0)
[2022-08-17 05:48] LABS: INR 2.1 (0.8-1.4); PROTHROMBIN TIME PATIENT 23.3 SEC (12.2-14.7)
[2022-08-17 05:58] LABS: CALCIUM 9.4 MG/DL (8.5-10.1); CREATININE SERUM 1.07 MG/DL (0.60-1.30); POTASSIUM 4.6 MMOL/L (3.6-5.0)
[2022-08-17] MEDS: POTASSIUM CL 10MEQ/50ML IVPB 50 ML IV SCH (06:05)
[2022-08-17] MEDS: KCL 20 MEQ TAB (K-DUR) PO SCH (06:06)
[2022-08-17] MEDS: MAGNESIUM 1 GM/100 ML IVPB 100 ML IV SCH (06:06)
[2022-08-17] MEDS: FLUTICASONE/VILANTEROL 100 MCG 14'S (BREO) IH SCH (07:20)
[2022-08-17] MEDS: RT-ALBUTEROL HFA 8.5 GM INHALER IH SCH ×3 (07:20→21:26)
[2022-08-17 07:40] VITALS: BP 161/70
[2022-08-17] MEDS: LACTOBACILLUS ACIDOPHILUS (PROBIOTIC) CAPSULE PO SCH ×3 (07:55→17:43)
[2022-08-17] MEDS: PHENAZOPYRIDINE 100 MG (PYRIDIUM) TABLET PO SCH ×3 (07:55→17:42)
[2022-08-17] MEDS: LOSARTAN 50 MG (COZAAR) TAB PO SCH (07:56)
[2022-08-17] MEDS: DOCUSATE SODIUM 100 MG (COLACE) CAP PO SCH ×2 (07:56→20:45)
[2022-08-17] MEDS: dilTIAZem120 MG (CARDIZEM CD) CAP PO SCH (07:56)
[2022-08-17] MEDS: meTOprolol TARTRATE 25 MG (LOPRESSOR) TABLET PO SCH ×2 (07:56→17:42)
[2022-08-17] MEDS: DULoxetine 20 MG (CYMBALTA) CAP PO SCH ×2 (07:56→20:36)
[2022-08-17] MEDS: PANTOPRAZOLE 40 MG (PROTONIX) TAB PO SCH (07:56)
[2022-08-17] MEDS: SENNOSIDES 8.6 MG (SENOKOT) TAB PO SCH ×2 (07:57→20:45)
--- NOTE | 2022-08-17 08:27 | Progress Note ---
Subjective Subjective Date Seen by Provider: August 17, 2022 Time Seen by Provider: 08:20 Pt is an 82 y/o male who is known to me from clinic. He reports that he had a rough night with his cpap not sealing well. He notes that he is not having chest pain, nausea, he is otherwise feeling better. Review of Systems General: No Chills, No Night Sweats; Fatigue, Appetite (improved) Pulmonary: Dyspnea, Cough; No Pleuritic Chest Pain Cardiovascular: No: Chest Pain, Paroxysmal Noc. Dyspnea, Edema Gastrointestinal: Diarrhea; No: Nausea, Vomiting, Abdominal Pain Genitourinary: Frequency Neurological: No: Weakness, Incoordination All Other Systems Reviewed All Other Systems Reviewed: Yes Objective Exam Vital Signs Vital Signs Date Time Temp Pulse Resp B/P (MAP) Pulse Ox O2 Delivery O2 Flow Rate FiO2 08/17/22 07:40 36.5 74 18 161/70 (100) 95 Nasal Cannula 2.00 08/17/22 07:21 95 Nasal Cannula 2.00 08/17/22 03:15 36.7 71 18 144/70 (94) 98 NIV CPAP 2.00 08/16/22 23:21 36.6 65 18 145/62 (89) 95 NIV CPAP 2.00 08/16/22 21:36 36.2 65 96 28 08/16/22 20:35 Nasal Cannula 2.00 08/16/22 20:00 Nasal Cannula 2.00 08/16/22 19:23 36.2 65 17 159/78 (105) 96 Nasal Cannula 2.00 08/16/22 15:23 36.3 67 17 151/70 (97) 97 Nasal Cannula 2.00 08/16/22 14:39 Nasal Cannula 2.00 96 08/16/22 11:40 36.6 60 16 150/79 (102) 96 Nasal Cannula 2.00 I & O 08/17/22 06:59 Intake Total 920 ml Output Total 450 ml Balance 470 ml General Appearance: No Apparent Distress, WD/WN HEENT: PERRL/EOMI, Moist Mucous Membranes Neck: Full Range of Motion, Normal Inspection Respiratory: Chest Non Tender, Normal Breath Sounds, No Accessory Muscle Use, No Respiratory Distress, Decreased Breath Sounds (in bases) Cardiovascular: Regular Rate, Rhythm, No Murmur Gastrointestinal: Normal Bowel Sounds, Non Tender, Soft Extremity: No Pedal Edema, Other (dressing on left ankle no warmth or erythema extending beyond dressing) Neurologic/Psychiatric: Alert, Oriented x3, No Motor/Sensory Deficits, Normal Mood/Affect Skin: Normal Color, Warm/Dry, Other (small scab on nose) Results Lab Laboratory Tests 08/16/22 10:10: Urine Color YELLOW, Urine Clarity CLEAR, Urine pH 6.0, Urine Specific [place] <=1.005, Urine Protein NEGATIVE, Urine Glucose (UA) NEGATIVE, Urine Ketones NEGATIVE, Urine Nitrite NEGATIVE, Urine Bilirubin NEGATIVE, Urine Urobilinogen 0.2, Urine Leukocyte Esterase NEGATIVE, Urine RBC (Auto) TRACE-IH, Urine RBC 2- 5H, Urine WBC RARE, Urine Crystals NONE, Urine Bacteria NEGATIVE, Urine Casts NONE, Urine Mucus NEGATIVE, Urine Culture Indicated NO 08/17/22 05:20: White Blood Count 7.9, Red Blood Count 4.03L, Hemoglobin 12.1L, Hematocrit 37L, Mean Corpuscular Volume 91, Mean Corpuscular Hemoglobin 30, Mean Corpuscular Hemoglobin Concent 33, Red Cell Distribution Width 14.1, Platelet Count 236, Mean Platelet Volume 9.6, Immature Granulocyte % (Auto) 2, Neutrophils (%) (Auto) 60, Lymphocytes (%) (Auto) 23, Monocytes (%) (Auto) 10, Eosinophils (%) (Auto) 4, Basophils (%) (Auto) 1, Neutrophils # (Auto) 4.7, Lymphocytes # (Auto) 1.8, Monocytes # (Auto) 0.8, Eosinophils # (Auto) 0.3, Basophils # (Auto) 0.1, Immature Granulocyte # (Auto) 0.1, Prothrombin Time 23.3H, INR Comment 2.1H, Sodium Level 140, Potassium Level 4.6, Chloride Level 106, Carbon Dioxide Level 26, Anion Gap 8, Blood Urea Nitrogen 10, Creatinine 1.07, Estimat Glomerular Filtration Rate 70, BUN/Creatinine Ratio 9, Glucose Level 99, Calcium Level 9.4, Magnesium Level 2.0 Microbiology 08/15/22 Gram Stain - Final, Resulted 08/15/22 Sputum Culture - Preliminary, Resulted Usual upper respiratory evette 08/11/22 Blood Culture - Final, Complete No growth Assessment/Plan Assessment/Plan Assessment and Plan Pneumonia Mass-like consolidation in right lung Spiculated lesion in right lung Emphysema COPD Hypertension Atrial fibrillation Chronic anticoagulation Squamous cell Carcinoma of left ear Chronic Cough Depression Anxiety Chronic Inflammatory bowel disease Pneumonia with Mass-like consolidation in right lung and Spiculated lesion in right lung with the complications of Emphysema and COPD - TB testing negative, waiting on Histoplasma labs - should be back by 08/19/22 per lab's report - culture report showed e.coli - still waiting on final report - discussed with lab - they will run the sensitivities on the ecoli - continue with Unasyn - Consult to Pulmonary - Hypertension with chronic Atrial fibrillation with pt on Chronic anticoagulation - pt therapeutic - defer to cardiology on his anticoagulation - continue with current medication regimen Squamous cell Carcinoma of left ear -surgery planned for this weekend, advised pt to reschedule the intervention due to current illness and need for dvt prophylaxis and determination of source of acute illness. Chronic Cough - supportive care Depression - pt on cymbalta Chronic Inflammatory bowel disease - the mesalamine has been continued. DVT prophylaxis with coumadin and scd;s GI prophylaxis with ppi therapy and lactobacillus CODEY BARILLAS MD August 17, 2022 08:27
--- NOTE | 2022-08-17 08:58 | Progress Note - Cardiology ---
Cardiology SOAP Progress Note Objective: I&O/Vital Signs 08/17/22 08/17/22 08/17/22 08/18/22 20:47 21:27 23:39 03:40 Temp 36.6 36.2 Pulse 67 62 Resp 18 18 B/P (MAP) 152/73 (99) 149/73 (98) Pulse Ox 96 97 O2 Delivery Nasal Cannula Nasal Cannula NIV CPAP NIV CPAP O2 Flow Rate 2.00 2.00 2.00 2.00 2.00 2.00 08/18/22 07:40 Pulse Ox 95 O2 Delivery Nasal Cannula O2 Flow Rate 2.00 08/18/22 00:00 Intake Total 1630 ml Balance 1630 ml Weight (Pounds): 197 Weight (Ounces): 8.0 Weight (Calculated Kilograms): 73.939996 Constitutional: AAO x 3 Respiratory: No accessory muscle use, No respiratory distress, No stridor, No wheezing; other (coarse breath sounds with scattered rhonchi; diminished lower lobes bilat) Cardiovascular: regular rate-rhythm, S1 and S2; No diastolic murmur, No systolic murmur Gastrointestional: soft; No guarding; audible bowel sounds Extremities: No pedal edema; no lower extremity edema bilateral Neurologic/Psychiatric: other (moves all extremities) Skin: normal color, warm/dry; No cyanosis, No cool, No diaphoresis, No rash on exposed areas, No ulcerations on exposed areas Results/Procedures: Labs Laboratory Tests 08/18/22 05:35: White Blood Count 7.9, Red Blood Count 3.98L, Hemoglobin 12.0L, Hematocrit 36L, Mean Corpuscular Volume 91, Mean Corpuscular Hemoglobin 30, Mean Corpuscular Hemoglobin Concent 33, Red Cell Distribution Width 14.1, Platelet Count 258, Mean Platelet Volume 9.6, Immature Granulocyte % (Auto) 2, Neutrophils (%) (Auto) 60, Lymphocytes (%) (Auto) 23, Monocytes (%) (Auto) 9, Eosinophils (%) (Auto) 5, Basophils (%) (Auto) 1, Neutrophils # (Auto) 4.8, Lymphocytes # (Auto) 1.8, Monocytes # (Auto) 0.7, Eosinophils # (Auto) 0.4H, Basophils # (Auto) 0.1, Immature Granulocyte # (Auto) 0.2H, Prothrombin Time 23.0H, INR Comment 2.0H, Sodium Level 138, Potassium Level 4.0, Chloride Level 103, Carbon Dioxide Level 22, Anion Gap 13, Blood Urea Nitrogen 9, Creatinine 1.06, Estimat Glomerular Filtration Rate 71, BUN/Creatinine Ratio 8, Glucose Level 97, Calcium Level 9.0, Magnesium Level 2.0 Microbiology 08/15/22 Gram Stain - Final, Complete 08/15/22 Sputum Culture - Final, Complete Usual upper respiratory evette 08/11/22 Blood Culture - Final, Complete No growth Procedures NAME: YEHUDA LAW [facility] REC#: [id number] PT STATUS: ADM IN : 1940 PHYSICIAN: CODEY PARSONS MD ADMIT DATE: 08/11/22 Signed Date of Exam:08/16/22 CHEST PA/LAT (2 VIEW) INDICATION: Lower respiratory infection. EXAMINATION: PA and lateral chest. FINDINGS: There is postop change from CABG surgery. There is a dual-chamber pacemaker. There are some patchy infiltrates in the right upper lung, right lung base, and left lung. The right basilar consolidation appears cavitated. This was present on a study from 02/06/2022. IMPRESSION: The 6 cm cavitary lesion in the right lung base has increased in size since 02/06/2022. There are new areas of consolidation in the right upper lobe and an infiltrate in the left lung since the previous exam. The findings are stable compared to a CT dated 08/11/2022. Dictated by: Dictated on workstation # [id number] Dict: 08/16/22 0917 Trans: 08/16/22 1037 [id number] Interpreted by: SANDEEP MORENO MD Electronically signed by: SANDEEP MORENO MD 08/16/22 1037 A/P: Assessment: Cavitary pneumonia - managed by Medical services UTI - management per Medical services H/O PE - Pulmonary embolism, pulmonary hemorrhage in mid 2019 (long hospitalization) - Hemoptysis and pulmonary hemorrhage necessitating discontinuation of Eliquis and aspirin in mid-August 2018; currently on warfarin that is being managed by Dr Parsons CAD: - 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 - Cardiac cath from December 30, 2013 in which successful GAURI x 2, one to the proximal and one to the mid vessel LAD, was done. 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 Styles states he is low risk for a cardiovascular event. It did show a small, mild intensity, reversible apical defect with a small amout of inducible ischemia - Echo of 03-28-[address] Styles LVEF 55-60%. Mild concentric hypertrophy. LA and RA are mildly dilated. PASP approx 47 mmHg. 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 Pacemaker currently in the VVIR mode, due to permanent atrial fib. - The patient had a pulse generator change out on 12/18/2011 and in July. T he device is functioning normally per last interrogation of 07-13-22 GI - History of ulcerative colitis, being managed by Dr. Parsons and Dr. Seymour Sleep apnea - for which he is on Bi-pap tx Hyperlipidemia - being treated with rosuvastatin. Carotid dz - Mild carotid arterial disease that has been followed by Dr. Mcdaniel Impaired fasting glucose Elevated BMI of approx 30 COVID (+) in December 2021 - received [facility] infusion Plan: UTI - management per medical services Pneumonia - management per medical services/tele-pulmonary services Continue warfarin, INR therapeutic Monitor lab Replace electrolytes as needed VIET CHRISTIAN August 17, 2022 08:58
--- NOTE | 2022-08-17 10:33 | Progress Note - Cardiology ---
Cardiology SOAP Progress Note Subjective: Report gen weakness and tiredness No focal weakness Had dysuria and some blood-tinged urine yesterday, none today No cp or palp or syncope Cough and shortness of breath have impoved No n/v/d Objective: I&O/Vital Signs 08/16/22 08/17/22 08/17/22 08/17/22 23:21 03:15 07:21 07:40 Temp 36.6 36.7 36.5 Pulse 65 71 74 Resp B/P (MAP) 145/62 (89) 144/70 (94) 161/70 (100) Pulse Ox 95 98 95 95 O2 Delivery NIV CPAP NIV CPAP Nasal Cannula Nasal Cannula O2 Flow Rate 2.00 2.00 2.00 2.00 08/17/22 08:00 Pulse Ox 2 O2 Delivery Room Air 08/17/22 00:00 Intake Total 820 ml Balance 820 ml Weight (Pounds): 197 Weight (Ounces): 8.0 Weight (Calculated Kilograms): 73.039781 Constitutional: AAO x 3 Respiratory: No accessory muscle use, No respiratory distress, No stridor, No wheezing; other (coarse breath sounds with scattered rhonchi; diminished lower lobes bilat) Cardiovascular: regular rate-rhythm, S1 and S2; No diastolic murmur, No systolic murmur Gastrointestional: soft; No guarding; audible bowel sounds Extremities: No pedal edema; no lower extremity edema bilateral Neurologic/Psychiatric: other (moves all extremities) Skin: normal color, warm/dry; No cyanosis, No cool, No diaphoresis, No rash on exposed areas, No ulcerations on exposed areas Results/Procedures: Labs Laboratory Tests 08/17/22 05:20: White Blood Count 7.9, Red Blood Count 4.03L, Hemoglobin 12.1L, Hematocrit 37L, Mean Corpuscular Volume 91, Mean Corpuscular Hemoglobin 30, Mean Corpuscular Hemoglobin Concent 33, Red Cell Distribution Width 14.1, Platelet Count 236, Mean Platelet Volume 9.6, Immature Granulocyte % (Auto) 2, Neutrophils (%) (Auto) 60, Lymphocytes (%) (Auto) 23, Monocytes (%) (Auto) 10, Eosinophils (%) (Auto) 4, Basophils (%) (Auto) 1, Neutrophils # (Auto) 4.7, Lymphocytes # (Auto) 1.8, Monocytes # (Auto) 0.8, Eosinophils # (Auto) 0.3, Basophils # (Auto) 0.1, Immature Granulocyte # (Auto) 0.1, Prothrombin Time 23.3H, INR Comment 2.1H, Sodium Level 140, Potassium Level 4.6, Chloride Level 106, Carbon Dioxide Level 26, Anion Gap 8, Blood Urea Nitrogen 10, Creatinine 1.07, Estimat Glomerular Filtration Rate 70, BUN/Creatinine Ratio 9, Glucose Level 99, Calcium Level 9.4, Magnesium Level 2.0 Microbiology 08/15/22 Gram Stain - Final, Resulted 08/15/22 Sputum Culture - Preliminary, Resulted Usual upper respiratory evette 08/11/22 Blood Culture - Final, Complete No growth Laboratory Tests 08/16/22 05:15 08/17/22 05:20 A/P: Assessment: Cavitary pneumonia - managed by Medical services UTI - management per Medical services H/O PE - Pulmonary embolism, pulmonary hemorrhage in mid 2018 (long hospitalization) - Hemoptysis and pulmonary hemorrhage necessitating discontinuation of Eliquis and aspirin in mid-August 2018; currently on warfarin that is being managed by Dr Parsons CAD: - 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 - Cardiac cath from December 30, 2013 in which successful GAURI x 2, one to the proximal and one to the mid vessel LAD, was done. 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 Styles states he is low risk for a cardiovascular event. It did show a small, mild intensity, reversible apical defect with a sma ll amout of inducible ischemia - Echo of 03-28-[address] Styles LVEF 55-60%. Mild concentric hypertrophy. LA and RA are mildly dilated. PASP approx 47 mmHg. 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 Pacemaker currently in the VVIR mode, due to permanent atrial fib. - The patient had a pulse generator change out on 12/18/2011 and in July. The device is functioning normally per last interrogation of 07-13-22 GI - History of ulcerative colitis, being managed by Dr. Parsons and Dr. Seymour Sleep apnea - for which he is on Bi-pap tx Hyperlipidemia - being treated with rosuvastatin. Carotid dz - Mild carotid arterial disease that has been followed by Dr. Mcdaniel Impaired fasting glucose Elevated BMI of approx 30 COVID (+) in December 2021 - received [facility] infusion Plan: UTI - management per medical services Pneumonia - management per medical services/tele-pulmonary services Continue warfarin, INR therapeutic Monitor lab Replace electrolytes as needed TOSHA JUNIOR MD FACP FAC CCDS August 17, 2022 10:33
[2022-08-17 12:14] VITALS: BP 158/71
[2022-08-17 16:33] VITALS: BP 143/68
[2022-08-17] MEDS: warFARin 4 MG (COUMADIN) TAB PO SCH (17:42)
[2022-08-17] MEDS: LORATADINE (CLARITIN) 10 MG TAB PO SCH (17:42)
[2022-08-17] MEDS: TAMSULOSIN 0.4 MG (FLOMAX) CAP PO SCH (17:42)
[2022-08-17 19:25] VITALS: BP 154/72
[2022-08-17] MEDS: ASPIRIN E.C. 81 MG (ECOTRIN) TAB PO SCH (20:36)
[2022-08-17 23:39] VITALS: BP 152/73
[2022-08-18 03:40] VITALS: BP 149/73
[2022-08-18] MEDS: AMPICILLIN/SULBACTAM INJECTION 3 GM in NS (IVPB) 100 ML IV SCH ×2 (03:43→09:13)
[2022-08-18 05:47] LABS: BASOPHILS # (AUTO) 0.1 10^3/uL (0.0-0.1); BASOPHILS % (AUTO) 1 % (0-10); EOSINOPHILS # (AUTO) 0.4 10^3/uL (0.0-0.3); EOSINOPHILS % (AUTO) 5 % (0-10); HEMATOCRIT 36 % (40-54); LYMPHOCYTES # (AUTO) 1.8 10^3/uL (1.0-4.0); LYMPHOCYTES % (AUTO) 23 % (12-44); MEAN CORPUSCULAR HEMOGLOBIN 30 pg (25-34); MEAN CORPUSCULAR HGB CONC 33 g/dL (32-36); MEAN CORPUSCULAR VOLUME 91 fL (80-99); MEAN PLATELET VOLUME 9.6 fL (9.0-12.2); MONOCYTES # (AUTO) 0.7 10^3/uL (0.0-1.0); MONOCYTES % (AUTO) 9 % (0-12); NEUTROPHILS # (AUTO) 4.8 10^3/uL (1.8-7.8); NEUTROPHILS % (AUTO) 60 % (42-75); PLATELET COUNT 258 10^3/uL (130-400); WHITE BLOOD COUNT 7.9 10^3/uL (4.3-11.0)
[2022-08-18 06:04] LABS: CREATININE SERUM 1.06 MG/DL (0.60-1.30)
[2022-08-18] MEDS: POTASSIUM CL 10MEQ/50ML IVPB 50 ML IV SCH (06:24)
[2022-08-18] MEDS: MAGNESIUM 1 GM/100 ML IVPB 100 ML IV SCH (06:24)
[2022-08-18] MEDS: KCL 20 MEQ TAB (K-DUR) PO SCH (06:24)
[2022-08-18] MEDS: RT-ALBUTEROL HFA 8.5 GM INHALER IH SCH (07:39)
[2022-08-18] MEDS: FLUTICASONE/VILANTEROL 100 MCG 14'S (BREO) IH SCH (07:40)
[2022-08-18 07:58] VITALS: BP 137/66
--- NOTE | 2022-08-18 08:56 | Progress Note ---
Subjective Subjective Date Seen by Provider: August 18, 2022 Time Seen by Provider: 08:40 Pt is an 82 y/o male who is known to me from clinic. He reports that last night he had a better night his cpap did not leak last night. He notes that he is not having chest pain, nausea, still with chronic loose stools he is otherwise feeling better. Review of Systems General: No Chills, No Night Sweats; Fatigue, Appetite (improved) Pulmonary: Dyspnea, Cough; No Pleuritic Chest Pain Cardiovascular: No: Chest Pain, Paroxysmal Noc. Dyspnea, Edema Gastrointestinal: Diarrhea; No: Nausea, Vomiting, Abdominal Pain Genitourinary: Frequency Neurological: No: Weakness, Incoordination All Other Systems Reviewed All Other Systems Reviewed: Yes Objective Exam Vital Signs Vital Signs Date Time Temp Pulse Resp B/P (MAP) Pulse Ox O2 Delivery O2 Flow Rate FiO2 08/18/22 07:58 36.1 61 16 137/66 (89) 96 Nasal Cannula 2.00 08/18/22 07:40 95 Nasal Cannula 2.00 08/18/22 03:40 36.2 62 18 149/73 (98) 97 NIV CPAP 2.00 2.00 08/17/22 23:39 36.6 67 18 152/73 (99) 96 NIV CPAP 2.00 2.00 08/17/22 21:27 Nasal Cannula 2.00 08/17/22 20:47 Nasal Cannula 2.00 08/17/22 19:25 36.8 60 18 154/72 (99) 97 Nasal Cannula 2.00 08/17/22 16:33 36.7 64 18 143/68 (93) 98 Nasal Cannula 2.00 08/17/22 14:40 95 Nasal Cannula 2.00 08/17/22 12:14 36.0 70 18 158/71 (100) 96 Nasal Cannula 2.00 I & O 08/18/22 07:00 Intake Total 1830 ml Output Total 475 ml Balance 1355 ml General Appearance: No Apparent Distress, WD/WN HEENT: PERRL/EOMI, Moist Mucous Membranes Neck: Full Range of Motion, Normal Inspection Respiratory: Chest Non Tender, Normal Breath Sounds, No Accessory Muscle Use, No Respiratory Distress, Decreased Breath Sounds (in bases) Cardiovascular: Regular Rate, Rhythm, No Murmur Gastrointestinal: Normal Bowel Sounds, Non Tender, Soft Extremity: No Pedal Edema, Other (dressing on left ankle no warmth or erythema extending beyond dressing) Neurologic/Psychiatric: Alert, Oriented x3, No Motor/Sensory Deficits, Normal Mood/Affect Skin: Normal Color, Warm/Dry, Other (small scab on nose) Results Lab Laboratory Tests 08/18/22 05:35: White Blood Count 7.9, Red Blood Count 3.98L, Hemoglobin 12.0L, Hematocrit 36L, Mean Corpuscular Volume 91, Mean Corpuscular Hemoglobin 30, Mean Corpuscular Hemoglobin Concent 33, Red Cell Distribution Width 14.1, Platelet Count 258, Mean Platelet Volume 9.6, Immature Granulocyte % (Auto) 2, Neutrophils (%) (Auto) 60, Lymphocytes (%) (Auto) 23, Monocytes (%) (Auto) 9, Eosinophils (%) (Auto) 5, Basophils (%) (Auto) 1, Neutrophils # (Auto) 4.8, Lymphocytes # (Auto) 1.8, Monocytes # (Auto) 0.7, Eosinophils # (Auto) 0.4H, Basophils # (Auto) 0.1, Immature Granulocyte # (Auto) 0.2H, Prothrombin Time 23.0H, INR Comment 2.0H, Sodium Level 138, Potassium Level 4.0, Chloride Level 103, Carbon Dioxide Level 22, Anion Gap 13, Blood Urea Nitrogen 9, Creatinine 1.06, Estimat Glomerular Filtration Rate 71, BUN/Creatinine Ratio 8, Glucose Level 97, Calcium Level 9.0, Magnesium Level 2.0 Microbiology 08/15/22 Gram Stain - Final, Complete 08/15/22 Sputum Culture - Final, Complete Usual upper respiratory evette 08/11/22 Blood Culture - Final, Complete No growth Assessment/Plan Assessment/Plan Assessment and Plan Pneumonia Mass-like consolidation in right lung Sepsis present on admission Spiculated lesion in right lung Emphysema COPD Hypertension Atrial fibrillation Chronic anticoagulation Squamous cell Carcinoma of left ear Chronic Cough Depression Anxiety Chronic Inflammatory bowel disease Pneumonia with Mass-like consolidation in right lung and Spiculated lesion in right lung, Sepsis present on admission with the complications of Emphysema and COPD - TB testing negative, waiting on Histoplasma labs - should be back by 08/19/22 per lab's report - culture report showed e.coli - still waiting on final report - discussed with lab - they will run the sensitivities on the ecoli - continue with Unasyn - Consult to Pulmonary - Hypertension with chronic Atrial fibrillation with pt on Chronic anticoagulation - pt therapeutic - defer to cardiology on his anticoagulation - continue with current medication regimen Squamous cell Carcinoma of left ear -surgery planned for this weekend, advised pt to reschedule the intervention due to current illness and need for dvt prophylaxis and determination of source of acute illness. Chronic Cough - supportive care Depression - pt on cymbalta Chronic Inflammatory bowel disease - the mesalamine has been continued. DVT prophylaxis with coumadin and scd;s GI prophylaxis with ppi therapy and lactobacillus CODEY BARILLAS MD August 18, 2022 08:56
[2022-08-18] MEDS: DOCUSATE SODIUM 100 MG (COLACE) CAP PO SCH (09:13)
[2022-08-18] MEDS: LACTOBACILLUS ACIDOPHILUS (PROBIOTIC) CAPSULE PO SCH (09:13)
[2022-08-18] MEDS: LOSARTAN 50 MG (COZAAR) TAB PO SCH (09:13)
[2022-08-18] MEDS: meTOprolol TARTRATE 25 MG (LOPRESSOR) TABLET PO SCH (09:13)
[2022-08-18] MEDS: SENNOSIDES 8.6 MG (SENOKOT) TAB PO SCH (09:13)
[2022-08-18] MEDS: PHENAZOPYRIDINE 100 MG (PYRIDIUM) TABLET PO SCH (09:13)
[2022-08-18] MEDS: PANTOPRAZOLE 40 MG (PROTONIX) TAB PO SCH (09:13)
[2022-08-18] MEDS: DULoxetine 20 MG (CYMBALTA) CAP PO SCH (09:25)
[2022-08-18] MEDS: dilTIAZem120 MG (CARDIZEM CD) CAP PO SCH (09:25)
--- NOTE | 2022-08-18 10:30 | Pulmonary Progress Note ---
Subjective Date Seen by a Provider: August 18, 2022 Time Seen by a Provider: 10:23 Subjective/Events-last exam (Tele-pulmonary Physician , Follow up note as per request of PCP Service provided via interactive audio and video telecommunications algrano system to a patient admitted to [facility]. patients Alba and RN present during interview Today I have seen the patient via video telecommunications with the request of Dr. Steffany Parsons. Patient states that he has no significant cough, hemoptysis or purulent sputum. He has been afebrile. I have reviewed his chest x-rays dating back to 2018. During August 26, 2021 he did have a pneumonia the pattern is similar to the current pattern. Also in the right lower lobe he did have an infiltrate which looks like a cavitary infil trate at that time. Given the recurrent similar pneumonia and the cavitation with the underlying smoking history I am concerned whether he had any underlying malignancy causing the recurrent obstructive pneumonias. Even though this pneumonia could be either bacterial or fungal or rare possibility of mycobacterial infection we need to keep in mind that if does not resolve with antibiotic therapy we should get a CT of the chest with or without contrast and if the density persist I would recommend a CT-guided needle biopsy and aspiration for cytology as well as a histology and cultures. I have discussed my thoughts with the patient and his as well as the nurse in the room. Today he may be discharged home on oral Augmentin for 3 weeks and suggest follow-up CT scan in about 3 weeks time and as mentioned if the cavity and the pneumonia does not resolve we should get a CT-guided biopsy. However I came to know home through the primary care physician that patient had a biopsy before and had severe complications requiring intensive care admission as well as follow-up in the long-term. Hence she does not want any bronchoscopy. But after the CT scan is done we could consider CT-guided biopsy if the patient is agreeable. I have reviewed my thoughts with Dr. Steffany Parsons. Sepsis Event Evaluation Height, Weight, BMI Height: 5'6.00" Weight: 197lbs. 8.0oz. 73.496437hz; 30.82 BMI Method:Stated Exam Exam Patient acknowledged, consented, and participated in this virtual visit which was conducted using real time audio/video Vital Signs Date Time Temp Pulse Resp B/P (MAP) Pulse Ox O2 Delivery O2 Flow Rate FiO2 5/19/23 07:58 36.1 61 16 137/66 (89) 96 Nasal Cannula 2.00 08/18/22 07:40 95 Nasal Cannula 2.00 08/18/22 03:40 36.2 62 18 149/73 (98) 97 NIV CPAP 2.00 2.00 08/17/22 23:39 36.6 67 18 152/73 (99) 96 NIV CPAP 2.00 2.00 08/17/22 21:27 Nasal Cannula 2.00 08/17/22 20:47 Nasal Cannula 2.00 08/17/22 19:25 36.8 60 18 154/72 (99) 97 Nasal Cannula 2.00 08/17/22 16:33 36.7 64 18 143/68 (93) 98 Nasal Cannula 2.00 08/17/22 14:40 95 Nasal Cannula 2.00 08/17/22 12:14 36.0 70 18 158/71 (100) 96 Nasal Cannula 2.00 I & O 08/18/22 07:00 Intake Total 1830 ml Output Total 475 ml Balance 1355 ml Height & Weight Height: 5'6.00" Weight: 197lbs. 8.0oz. 73.217259uz; 30.82 BMI Method:Stated General Appearance: No Apparent Distress, WD/WN HEENT: PERRL/EOMI, Moist Mucous Membranes Neck: Full Range of Motion, Normal Inspection Respiratory: Chest Non Tender, Normal Breath Sounds, No Accessory Muscle Use, No Respiratory Distress, Decreased Breath Sounds (in bases) Cardiovascular: Regular Rate, Rhythm, No Murmur Capillary Refill: Less Than 3 Seconds Gastrointestinal: normal bowel sounds, non tender, soft, no organomegaly Extremity: No Pedal Edema, Other (dressing on left ankle no warmth or erythema extending beyond dressing) Neurologic/Psychiatric: Alert, Oriented x3, No Motor/Sensory Deficits, Normal Mood/Affect Skin: Normal Color, Warm/Dry, Other (small scab on nose) Results Lab Laboratory Tests 08/17/22 05:20 08/18/22 05:35 Assessment/Plan Assessment/Plan as above Critical Care: Critically Ill Patient Time spent with patient (mins): 25 KENDRICK NGUYEN MD August 18, 2022 10:30
--- NOTE | 2022-08-18 10:39 | Physical Therapy Evaluation ---
PT Evaluation-General Medical Diagnosis Admission Date August 11, 2022 at 14:16 Medical Diagnosis: cavitary pneumonia Onset Date: August 11, 2022 Therapy Diagnosis Therapy Diagnosis: debility Height/Weight Height (Feet): 5 Height (Inches): 6.00 Weight (Pounds): 197 Weight (Ounces): 8.0 Precautions Precautions/Isolations: Droplet Isolation Referral Physician: Jaqueline Reason for Referral: Evaluation/Treatment Medical History Pertinent Medical History: CABG, CAD, COPD, Heart Failure, HTN, NH Current History ER secondary to SOA Reviewed History: Yes Social History Home: Single Level Current Living Status: Spouse PT Steps Into Home: 1 Prior Prior Level of Function SCALE: Activities may be completed with or without assistive devices. 2-Soqminzpbb-kxwuygc completes the activity by him/herself with no assistance from a helper. 5-Set-up or Clean-up Assistance-helper sets up or cleans up; patient completes activity. Pelsor assists only prior to or following the activity. 4-Supervision or Touching Assistance-helper provides verbal cues and/or touching/steadying and/or contact guard assistance as patient completes activity. Assistance may be provided throughout the activity or intermittently. 3-Partial/Moderate Assistance-helper does LESS THAN HALF the effort. Pelsor lifts, holds or supports trunk or limbs, but provides less than half the effort. 2-Substantial/Maximal Assistance-helper does MORE THAN HALF the effort. Pelsor lifts or holds trunk or limbs and provides more than half the effort. 2-Wvamqijmy-hqzbgs does ALL the effort. Patient does none of the effort to complete the activity. Or, the assistance of 2 or more helpers is required for the patient to complete the activity. If activity was not attempted, code reason: 7-Patient Refused. 9-Not Applicable-not attempted and the patient did not perform the activity before the current illness, exacerbation or injury. 10-Not Attempted due to Environmental Limitations-(lack of equipment, weather restraints, etc.). 88-Not Attempted due to Medical Conditions or Safety Concerns. Bed Mobility: 6 Transfers (B,C,W/C): 6 Gait: 6 Stairs: 6 Indoor Mobility (Ambulation): Independent Stairs: Independent Prior Devices Use: None PT Evaluation-Current Subjective Patient is very agreeable to participate with PT. Family present. Objective Patient Orientation: Normal For Age Attachments: IV ROM/Strength ROM Lower Extremities bilateral LE WFL Strength Lower Extremities 5/5 grossly bilateral LE all planes Integumentary/Posture Bowel Incontinence: No Bladder Incontinence: No Posture WFL Neuromuscular (Tone, Coordination, Reflexes) grossly intact Sensory Vision: Functional Hearing: Functional Transfers Lying to Sitting/Side of Bed(Q: 6 Sit to Stand (QC): 6 Chair/Dmr-zy-Jrvmt Xfer(QC): 6 Gait Mode of Locomotion: Walk Anticipated Mode of Locomotion: Walk Walk 10 feet (QC): 6 Walk 50 ft with 2 Turns(QC): 6 Walk 150 ft (QC): 6 Distance: 400' Gait Assistive Device: None Comments/Gait Description safe and functional with no deviation Balance Sitting Static: Normal Sitting Dynamic: Normal Standing Static: Normal Standing Dynamic: Normal Assessment/Needs Patient's SAO2 92% RA with activity. Patient is currently at independent OF with all gross motor skills safely and does not require skilled PT intervention at this time. Patient and family instructed to ambulate PRN in hallway with mask on. Rehab Potential: Fair PT Plan Treatment/Plan Treatment Plan: Discontinue PT Treatment Duration: August 18, 2022 Frequency: 1 time per week Estimated Hrs Per Day: .25 hour per day Patient and/or Family Agrees t: Yes Time Time In: 955 Time Out: 1008 DATE: August 18, 2022 Total Billed Treatment Time: 13 Total Billed Treatment 1 visit [facility] 13 min CHIDI HUANG PT August 18, 2022 10:39
[2022-08-18 11:06] VITALS: BP 158/85
--- NOTE | 2022-08-18 12:45 | Discharge Summary ---
Diagnosis/Chief Complaint Date of Admission August 11, 2022 at 14:16 Date of Discharge 08/18/22 Discharge Date: August 18, 2022 Discharge Time: 12:50 Admission Diagnosis Admission Diagnosis Pneumonia Mass-like consolidation in right lung Sepsis present on admission Spiculated lesion in right lung Emphysema COPD Hypertension Atrial fibrillation Chronic anticoagulation Squamous cell Carcinoma of left ear Chronic Cough Depression Anxiety Chronic Inflammatory bowel disease Discharge Diagnosis Pneumonia Mass-like consolidation in right lung Sepsis present on admission Spiculated lesion in right lung Emphysema COPD Hypertension Atrial fibrillation Chronic anticoagulation Squamous cell Carcinoma of left ear Chronic Cough Depression Anxiety Chronic Inflammatory bowel disease Reason Hospital Visit Vishnu Jaimes is an 83y M with PMH of COPD, Afib, HTN and ulcerative colitis who presented to the ED 08/11 with increasing SOB and weakness. He has had a cough for the past few months that produces white sputum, sometimes red streaked sputum. Yesterday he was increasingly SOB and reports O2 sats of 91, he is usually closer to 97%. He has a nebulizer at home and did a breathing treatment night but it did not improve his symptoms. He has had episodes of increased SOB similar to this in the past that usually improve with nebulizer treatment. He has had a decreased appetite the past week and had nausea yesterday, no vomiting. Last BM was yesterday, formed without blood. Denies sore throat, trouble swallowing. Pt is lying comfortably in chair, accompanying. Today he is feeling much improved with no SOB at rest. He has his appetite back, no nausea. Normally uses Bipap but slept only with supplemental O2 last night. Reports he has only ever taken mesalamine for UC, no infliximab. Denies recent travel. He did have a hospital stay in 2019 for hemoptysis, bronchoscopy was performed. At the time it was though to be caused by Eliquis so patient was switched to warfarin. Discharge Summary Discharge Physical Examination Allergies: Coded Allergies: Sulfa (Sulfonamide Antibiotics) (Verified Allergy, Unknown, 08/31/18) montelukast (Unverified Adverse Reaction, Unknown, 06/08/16) Hallucinations per pt Vitals & I&Os General Appearance: Alert, Oriented X3, Cooperative, No Acute Distress HEENT: Atraumatic Respiratory: Other (decreased air movement in bases, faint crackles) Cardiovascular: Other (irregularly irregular) Abdominal: Normal Bowel Sounds, Soft, No Tenderness Skin: No Breakdown Neuro: Normal Speech, Cranial Nerves 3-12 NL Psych/Mental Status: Mental Status NL, Mood NL Hospital Course Was the Problem List Reviewed?: Yes Pneumonia Mass-like consolidation in right lung Sepsis present on admission Spiculated lesion in right lung Emphysema COPD Hypertension Atrial fibrillation Chronic anticoagulation Squamous cell Carcinoma of left ear Chronic Cough Depression Anxiety Chronic Inflammatory bowel disease Pneumonia with Mass-like consolidation in right lung and Spiculated lesion in right lung, Sepsis present on admission with the complications of Emphysema and COPD - TB testing negative, waiting on Histoplasma labs - should be back by 08/19/22 per lab's report - culture report showed e.coli - still waiting on final report - discussed with lab - they will run the sensitivities on the ecoli - continue with Unasyn - discussed with pulmonology - planning out patient oral antibiotics. - Consult to Pulmonary - Hypertension with chronic Atrial fibrillation with pt on Chronic anticoagulation - pt therapeutic - defer to cardiology on his anticoagulation - continue with current medication regimen Squamous cell Carcinoma of left ear -surgery planned for this weekend, advised pt to reschedule the intervention due to current illness and need for dvt prophylaxis and determination of source of acute illness. Chronic Cough - supportive care Depression - pt on cymbalta Chronic Inflammatory bowel disease - the mesalamine has been continued. DVT prophylaxis with coumadin and scd;s GI prophylaxis with ppi therapy and lactobacillus Pending Labs Discharge Condition at discharge improved Instructions to patient/family Please see electronic discharge instructions given to patient. Discharge Medications Reviewed and agree with Discharge Medication list on patient's Discharge Instruction sheet CODEY BARILLAS MD August 18, 2022 12:45
[2022-08-18] MEDS ORDERED: AMOX1TAB12 PO (12:56)
[2022-08-18] MEDS ORDERED: Albuterol Inhaler IH (12:56)
[2022-08-18] MEDS ORDERED: LACT1CAP7 PO (12:56)
--- NOTE | 2022-08-18 12:56 | Progress Note - Cardiology ---
Cardiology SOAP Progress Note Subjective: No cp or palp or syncope Shortness of breath and malaise are improving No swelling No n/v/d Wondering about going home Objective: I&O/Vital Signs 08/18/22 08/18/22 08/18/22 08/18/22 03:40 07:40 07:58 08:00 Temp 36.2 36.1 Pulse 62 61 Resp 18 16 B/P (MAP) 149/73 (98) 137/66 (89) Pulse Ox 97 95 96 O2 Delivery NIV CPAP Nasal Cannula Nasal Cannula Room Air O2 Flow Rate 2.00 2.00 2.00 2.00 08/18/22 11:06 Temp 36.4 Pulse 74 Resp 20 B/P (MAP) 158/85 (109) Pulse Ox 95 O2 Delivery Room Air 08/18/22 00:00 Intake Total 1630 ml Balance 1630 ml Weight (Pounds): 197 Weight (Ounces): 8.0 Weight (Calculated Kilograms): 73.169329 Constitutional: AAO x 3 Respiratory: No accessory muscle use, No respiratory distress, No stridor, No wheezing; other (coarse breath sounds with scattered rhonchi; diminished lower lobes bilat) Cardiovascular: regular rate-rhythm, S1 and S2; No diastolic murmur, No systolic murmur Gastrointestional: soft; No guarding; audible bowel sounds Extremities: No pedal edema; no lower extremity edema bilateral Neurologic/Psychiatric: other (moves all extremities) Skin: normal color, warm/dry; No cyanosis, No cool, No diaphoresis, No rash on exposed areas, No ulcerations on exposed areas Results/Procedures: Labs Laboratory Tests 08/18/22 05:35: White Blood Count 7.9, Red Blood Count 3.98L, Hemoglobin 12.0L, Hematocrit 36L, Mean Corpuscular Volume 91, Mean Corpuscular Hemoglobin 30, Mean Corpuscular Hemoglobin Concent 33, Red Cell Distribution Width 14.1, Platelet Count 258, Mean Platelet Volume 9.6, Immature Granulocyte % (Auto) 2, Neutrophils (%) (Auto) 60, Lymphocytes (%) (Auto) 23, Monocytes (%) (Auto) 9, Eosinophils (%) (Auto) 5, Basophils (%) (Auto) 1, Neutrophils # (Auto) 4.8, Lymphocytes # (Auto) 1.8, Monocytes # (Auto) 0.7, Eosinophils # (Auto) 0.4H, Basophils # (Auto) 0.1, Immature Granulocyte # (Auto) 0.2H, Prothrombin Time 23.0H, INR Comment 2.0H, Sodium Level 138, Potassium Level 4.0, Chloride Level 103, Carbon Dioxide Level 22, Anion Gap 13, Blood Urea Nitrogen 9, Creatinine 1.06, Estimat Glomerular Filtration Rate 71, BUN/Creatinine Ratio 8, Glucose Level 97, Calcium Level 9.0, Magnesium Level 2.0 Microbiology 08/15/22 Gram Stain - Final, Complete 08/15/22 Sputum Culture - Final, Complete Usual upper respiratory evette 08/11/22 Blood Culture - Final, Complete No growth Laboratory Tests 08/17/22 05:20 08/18/22 05:35 A/P: Assessment: Cavitary pneumonia - managed by Medical services UTI - management per Medical services H/O PE - Pulmonary embolism, pulmonary hemorrhage in mid 2018 (long hospitalization) - Hemoptysis and pulmonary hemorrhage necessitating discontinuation of Eliquis and aspirin in mid-August 2018; currently on warfarin that is being managed by Dr Parsons CAD: - 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 - Cardiac cath from December 30, 2013 in which successful GAURI x 2, one to the proximal and one to the mid vessel LAD, was done. 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 Styles states he is low risk for a cardiovascular event. It did show a small, mild intensity, reversible apical defect with a small amout of inducible ischemia - Echo of 03-28-[address] Styles LVEF 55-60%. Mild concentric hypertrophy. LA and RA are mildly dilated. PASP approx 47 mmHg. 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 Pacemaker currently in the VVIR mode, due to permanent atrial fib. - The patient had a pulse generator change out on 12/18/2011 and in July. The device is functioning normally per last interrogation of 07-13-22 GI - History of ulcerative colitis, being managed by Dr. Parsons and Dr. Seymour Sleep apnea - for which he is on Bi-pap tx Hyperlipidemia - being treated with rosuvastatin. Carotid dz - Mild carotid arterial disease that has been followed by Dr. Mcdaniel Impaired fasting glucose Elevated BMI of approx 30 COVID (+) in December 2021 - received [facility] infusion Plan: UTI - management per medical services Pneumonia - management per medical services/tele-pulmonary services Continue warfarin, INR therapeutic and remains stable around 2 Monitor lab Replace electrolytes as needed TOSHA JUNIOR MD FACP FAC CCDS August 18, 2022 12:56
--- NOTE | 2022-08-18 13:04 | Discharge Inst-Simple/Standard ---
Discharge Inst-Standard Reconcile Patient Problems Problems Reviewed?: Yes Discharge Medications New, Converted or Re-Newed RX: Transmitted to Pharmacy Patient Instructions/Follow Up Plan of Care/Instructions/FU: 1-2 weeks basilio vaughn 2 wks cardiology Activity as Tolerated: Yes Discharge Diet: Regular Diet Return to The Hospital For: any worsening shortness of breath, any other lifethreatening illness or injury CODEY BARILLAS MD August 18, 2022 13:04
[2022-08-18 16:01] VITALS: BP 158/85
--- NOTE | 2022-08-21 04:09 | Physician Query Clarification ---
PQ-Link Manifestation-Etiology Admission/Discharge Admission Date: August 11, 2022 at 14:16 Discharge Date: August 18, 2022 at 16:06 The medical record reflects the following clinical scenario: History/Risk Factors: 82 y/o male patient admitted with pneumonia with lung mass, e. coli was found in sputum culture. Clinical Findings: E. coli in sputum culture. Treatment: IV antibiotics. Question: Can you specify if the Pneumonia is due to/associated with e.coli ? Please document a response in the Progress Note or Discharge Summary. 1. Yes - Pneumonia is due to/associated with e.coli. 2. No - Pneumonia is not due to/associated with e.coli. 3. Other, with explanation of the clinical findings. 4. Clinically undetermined, no explanation for the clinical findings. PHYSICIAN RESPONSE Manifestation due to/assoic: Yes In responding to this query, please exercise your independent professional judgment. The purpose of this communication is to more accurately reflect the complexity of your patients condition. The fact that a question is asked does not imply that any particular answer is desired or expected. Thank you for your timely response to this clarification. Requestors name: [ ] Phone # [ ] THIS PHYSICIAN QUERY FORM IS A PERMANENT PART OF THE MEDICAL RECORD MELANI TAVARES August 21, 2022 04:09 CODEY BARILLAS MD Sep 05, 2022 21:49
== END 2022-08-18 16:06 | disposition home or self-care (01) | DRG 871 ==
LOC: EDUNIT# 10:19 → ER 10:21 → 4TH 14:16
PROVIDERS: ADMIT Internal Medicine; ATTEND Family Medicine
PROC: 5A09357 Assistance with Respiratory Ventilation, Less than 24 Consecutive Hours, Continuous Positive Airway Pressure (ICD-10-PCS; principal; 2022-08-15)
DX: A41.9 Sepsis, unspecified organism (principal); J15.5 Pneumonia due to Escherichia coli; I48.21 Permanent atrial fibrillation; N39.0 Urinary tract infection, site not specified; K51.90 Ulcerative colitis, unspecified, without complications; I48.92 Unspecified atrial flutter; J43.9 Emphysema, unspecified; K21.9 Gastro-esophageal reflux disease without esophagitis; N18.30 Chronic kidney disease, stage 3 unspecified; I12.9 Hypertensive chronic kidney disease with stage 1 through stage 4 chronic kidney disease, or unspecified chronic kidney disease; Z95.1 Presence of aortocoronary bypass graft; Z95.5 Presence of coronary angioplasty implant and graft; I25.10 Atherosclerotic heart disease of native coronary artery without angina pectoris; E78.00 Pure hypercholesterolemia, unspecified; Z66 Do not resuscitate; N40.0 Benign prostatic hyperplasia without lower urinary tract symptoms; M19.90 Unspecified osteoarthritis, unspecified site; R91.8 Other nonspecific abnormal finding of lung field; Z87.891 Personal history of nicotine dependence; Z79.82 Long term (current) use of aspirin; Z79.01 Long term (current) use of anticoagulants; Z79.899 Other long term (current) drug therapy; C44.229 Squamous cell carcinoma of skin of left ear and external auricular canal; F32.A Depression, unspecified; Z86.711 Personal history of pulmonary embolism; I77.9 Disorder of arteries and arterioles, unspecified; Z86.16 Personal history of COVID-19; Z20.822 Contact with and (suspected) exposure to COVID-19; F41.9 Anxiety disorder, unspecified
CPT/HCPCS: 36415; 71045; 71046; 71260; 80048; 80053; 81000; 83605; 83735; 84484; 85007; 85025; 85027; 85610; 86480; 87015; 87040; 87070; 87077; 87116; 87186; 87205; 87206; 87385; 87636; 93005; 94640; 94760; 94761; 96361; 96365; 96367

== ENCOUNTER → 2022-09-07 | Outpatient (CLI) | payer MEDICARE ==
[~2022-09-07] MED LIST changes: +AMOX1TAB12 PO; +Albuterol Inhaler IH; +GLUC1TAB21 PO; +LACT1CAP7 PO
--- NOTE | 2022-09-07 13:33 | Diagnostic Imaging Report ---
INDICATION: Follow-up pneumonia. COMPARISON: 08/16/2022 FINDINGS: Frontal and lateral radiographic views of the chest were obtained and show interval improved aeration, particularly on the left. Cavitary lesion persists in the right base. There is also an area of persistent consolidative airspace opacity in the right upper lobe. No large effusion or pneumothorax is seen. Cardiac silhouette and pulmonary vasculature are within normal limits. Sternotomy wires and left-sided dual-lead pacemaker are also noted. Osseous structures show no gross acute abnormalities. IMPRESSION: 1. Interval improved aeration on the left. 2. Redemonstration cavitary lesion in the right base and area of dense consolidation of the right upper lobe. These could be at the areas of persistent pneumonia, but malignancy is also within the differential. May want to consider repeat CT of the chest with potential biopsy. Report faxed to Infection Control at 1:32 PM 09/07/2022/cb Dictated by: Dictated on workstation # [id number]
== END ==
LOC: RAD 11:22
PROVIDERS: ATTEND Physician Assistant
DX: J98.4 Other disorders of lung (principal); J18.9 Pneumonia, unspecified organism
CPT/HCPCS: 71046

== ENCOUNTER 2022-09-26 12:52 | Outpatient (RCR) | payer MEDICARE ==
[~2022-09-26 12:52] MED LIST changes: +POTA-185 PO; -POTA10TA PO
== END 2022-09-29 | disposition home or self-care (01) ==
LOC: ONC 12:52
PROVIDERS: ATTEND Radiology Radiation Oncology
DX: C44.229 Squamous cell carcinoma of skin of left ear and external auricular canal (principal); I25.10 Atherosclerotic heart disease of native coronary artery without angina pectoris; I48.0 Paroxysmal atrial fibrillation; E78.2 Mixed hyperlipidemia; G47.30 Sleep apnea, unspecified; Z95.0 Presence of cardiac pacemaker; I11.0 Hypertensive heart disease with heart failure; I50.9 Heart failure, unspecified; Z79.01 Long term (current) use of anticoagulants
CPT/HCPCS: 77290; 77334; 99205

== ENCOUNTER → 2022-10-30 | Outpatient (RCR) | payer MEDICARE | END | disposition home or self-care (01) | LOC: ONC 10-02 11:45 | PROVIDERS: ATTEND Radiology Radiation Oncology | DX: Z51.11 Encounter for antineoplastic chemotherapy (principal); C44.229 Squamous cell carcinoma of skin of left ear and external auricular canal; I25.10 Atherosclerotic heart disease of native coronary artery without angina pectoris; I48.0 Paroxysmal atrial fibrillation; E78.2 Mixed hyperlipidemia; I10 Essential (primary) hypertension; G47.30 Sleep apnea, unspecified; Z95.0 Presence of cardiac pacemaker; Z79.01 Long term (current) use of anticoagulants; Z95.5 Presence of coronary angioplasty implant and graft; Z87.891 Personal history of nicotine dependence | CPT/HCPCS: 77280; 77295; 77300; 77334; 77336 ==

== ENCOUNTER 2022-11-20 09:36 | Outpatient (RCR) | payer MEDICARE | END 2022-11-30 | disposition home or self-care (01) | LOC: ONC 09:36 | PROVIDERS: ATTEND Radiology Radiation Oncology | DX: Z51.0 Encounter for antineoplastic radiation therapy (principal); I25.10 Atherosclerotic heart disease of native coronary artery without angina pectoris; I48.0 Paroxysmal atrial fibrillation; E78.2 Mixed hyperlipidemia; G47.30 Sleep apnea, unspecified; Z95.0 Presence of cardiac pacemaker; I11.0 Hypertensive heart disease with heart failure; I50.9 Heart failure, unspecified; Z79.01 Long term (current) use of anticoagulants | CPT/HCPCS: 77412; G0463; 77336 ==

== ENCOUNTER → 2022-11-22 | Outpatient (CLI) | payer MEDICARE ==
[~2022-11-22] MED LIST changes: +HOLD METFORMIN - RECEIVED CONTRAST 20 ML VIAL IV SCH; +IOHEXOL 350 MG/ML 100 ML (OMNIPAQUE 350) VIAL IV ONE; +NS 100 ML (IVPB) BAG IV ONE
[2022-11-22 10:15] LABS: CREATININE SERUM 1.07 MG/DL (0.60-1.30)
--- NOTE | 2022-11-22 15:28 | Diagnostic Imaging Report ---
PROCEDURE: CT chest with contrast only. TECHNIQUE: Multiple contiguous axial images were obtained through the chest after administration of intravenous contrast. Auto Exposure Controls were utilized during the CT exam to meet ALARA standards for radiation dose reduction. INDICATION: J 89.4, pulmonary cavitary lesion COMPARISON: Radiographs dated 09/07/[address] dated 08/11/2022 FINDINGS: Pacer device present with battery pack within the anterior left chest. 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 The heart is enlarged. Irregular spiculated mass lesion within the right upper lobe extending towards the right hilum and into the right lower lobe is again identified. This appears slightly worsened since the prior examination measuring 5.6 x 5.3 cm when previously measuring the similar plane in dimension and measured 4.7 x 4.7 cm. Adjacent reticular opacities about this mass are also present which have worsened since the prior examination. More focal discrete pulmonary nodule within the right middle lobe is present measuring 1.3 cm, increased in size from the prior examination measuring 0.8 cm. Multiple new nodules are identified within the right lung, particularly the right lower lobe. Previously noted cavitary lesion within the posterior right lower lobe is again identified. This appears less cavitary more solid compared to prior examination. This measures approximately 4.7 x 3.4 cm, relatively similar in size to the prior examination though more solid as previously measured 4.2 x 3.6 cm. 4.6 x 2.3 cm cavitary lesion within the inferior left lower lobe is present, appearing minimally more prominent than the prior examination. Innumerable pulmonary nodules throughout the left lung are again identified. Previously noted patchy groundglass and reticular opacities within the left lung appear improved from the prior examination. Mild background emphysematous changes, particularly within the upper lungs. No pneumothorax. Tiny hiatal hernia. 2.9 x 1.8 cm right adrenal gland nodules present, and possibly changed the prior exam. Cholecystectomy. Scattered osseous degenerative changes. No acute fracture. IMPRESSION: Worsening spiculated mass lesion within the right upper lobe extending into the right hilum and right lower lobe, concerning for worsening neoplasm. Worsening adjacent interstitial opacities may relate to postobstructive atelectasis or lymphangitic spread of carcinoma. Innumerable bilateral small pulmonary nodules, with dominant pulmonary nodule within the right middle lobe worsened since the prior examination concerning for metastatic disease. Additional cavitary lesions within the lungs bilaterally are again identified. The right lower lobe cavitary lesion is relatively stable in size though appears less cavitary then prior exam though the left lower lobe cavitary lesion appears slightly enlarged when compared to the prior exam. Interval improvement of previously noted left-sided reticular and groundglass opacities, related to an improved superimposed infectious etiology. Stable right adrenal gland nodule, indeterminate. Background emphysematous changes. Additional postsurgical and chronic findings as above. Dictated by: Dictated on workstation # [id number]
== END ==
LOC: RAD 09:43
PROVIDERS: ATTEND Physician Assistant
DX: J98.4 Other disorders of lung (principal); E27.8 Other specified disorders of adrenal gland
CPT/HCPCS: 36415; 71260; 82565; 84520

== ENCOUNTER → 2023-01-04 | Outpatient (CLI) | payer MEDICARE ==
[~2023-01-04] MED LIST changes: +CATHETER FLUSH 10 ML SYR IVP PRN; -HOLD METFORMIN - RECEIVED CONTRAST 20 ML VIAL IV SCH; -IOHEXOL 350 MG/ML 100 ML (OMNIPAQUE 350) VIAL IV ONE; -NS 100 ML (IVPB) BAG IV ONE
--- NOTE | 2023-01-04 12:54 | Diagnostic Imaging Report ---
INDICATION: Initial staging right lung carcinoma. Serum blood glucose level time injection is 104 mg/dL. Patient was administered 9.1 mCi F-18 FDG intravenously in the left antecubital location and PET imaging was performed from the top of skull to mid thighs. Noncontrast CT was also performed for attenuation correction and anatomic correlation. Correlation is made with prior CT chest study from 11/22/2022. No prior PET/CT studies available for comparison. There is symmetric activity throughout the brain. Soft tissues of the neck are unremarkable. The large spiculated mass involving the right upper lobe shows significant hypermetabolism with an SUV max of 17.8. The mass extends to the right hilum and into the medial aspect of the right lower lobe. There are areas of nodularity in the periphery of the right middle lobe and lingula which demonstrate uptake with an SUV max of approximately 6. The cavitary lesions identified in the lower lobes also demonstrate hypermetabolism. SUV max of the lesion of the right lower lobe is approximate 9.3 and the left lower lobe approximately 7.4. No definite mediastinal or left hilar hypermetabolism is identified. Physiologic activity throughout the GI and tract of the abdomen and pelvis is noted. A right adrenal nodule does not show FDG avidity. No suspicious areas of hypermetabolism in the abdomen or pelvis are identified. IMPRESSION: Significant hypermetabolism involving the large mass involving the right upper lobe which extends to the right hilum into the right lower lobe consistent with primary lung malignancy. There are additional lesions showing FDG avidity in bilateral lower lobes which are likely neoplastic as well. Small nodules in the right middle lobe and lingula also shows some moderate uptake and may be metastatic. Dictated by: Dictated on workstation # [id number]
== END ==
LOC: RAD 07:32
PROVIDERS: ATTEND Radiology Radiation Oncology
DX: C34.11 Malignant neoplasm of upper lobe, right bronchus or lung (principal); R91.8 Other nonspecific abnormal finding of lung field
CPT/HCPCS: 78815; 82947; A9552

== ENCOUNTER 2023-01-17 05:35 | Outpatient (CLI) | payer MEDICARE ==
[~2023-01-17] VITALS: Ht 172.7 cm; Wt 81.7 kg
[~2023-01-17 05:35] MED LIST changes: -CATHETER FLUSH 10 ML SYR IVP PRN
== END 2023-01-18 08:53 | disposition home or self-care (01) ==
LOC: PREOP 05:35
PROVIDERS: ATTEND Surgery
DX: Z01.818 Encounter for other preprocedural examination (principal)

== ENCOUNTER 2023-01-22 07:02 | Day surgery (SDC) | payer MEDICARE ==
[2023-01-22] VITALS (8 sets, daily range): BP systolic 65–158; BP diastolic 61–95
[~2023-01-22] VITALS: Ht 172.7 cm; Wt 81.7 kg
[2023-01-22] MEDS ORDERED: 0.9% SODIUM CHLORIDE PF INJ 20 ML VIAL ONE (07:20)
[2023-01-22] MEDS ORDERED: HEParin (CENTRAL IV FLUSH) 500 UNIT/5 ML SYR ONE (07:20)
[2023-01-22] MEDS ORDERED: LIDOCAINE 2% w/EPI 1:100,000 20 ML VIAL ONE (07:21)
[2023-01-22] MEDS ORDERED: ceFAZolin INJECTION 2,000 MG in NS (IVPB) 50 ML 50 ML IV ONE (07:30)
--- NOTE | 2023-01-22 07:38 | Progress Note-Pre Operative ---
Pre-Operative Progress Note Date H&P Reviewed: Jan 22, 2023 Time H&P Reviewed: 07:38 History & Physical: H&P Reviewed, Patient Examed, No changes noted Pre-Operative Diagnosis: lung cancer CASSANDRA JAMES DO Jan 22, 2023 07:38
[2023-01-22] MEDS ORDERED: fentaNYL INJECTION 100 MCG/2 ML VIAL ONE (07:40)
[2023-01-22] MEDS ORDERED: LACTATED RINGERS 1,000 ML 1,000 ML IV PRN (07:45)
--- NOTE | 2023-01-22 08:58 | Anesthesia-General Post-Op ---
MAC Patient Condition Mental Status/LOC: Same as Preop Cardiovascular: Satisfactory Nausea/Vomiting: Absent Respiratory: Satisfactory Pain: Controlled Complications: Absent Post Op Complications Complications None Follow Up Care/Instructions Patient Instructions None needed. Anesthesiology Discharge Order Discharge Order Patient is doing well, no complaints, stable vital signs, no apparent adverse anesthesia problems. No complications reported per nursing. AC HODGE CRNA Jan 22, 2023 08:58
[2023-01-22] MEDS ORDERED: morphine INJ 10 MG/ML 1ML (SYR OR VIAL) IVP ONE (09:00)
[2023-01-22] MEDS ORDERED: ONDANSETRON INJECTION 4 MG/2 ML (SDV) IVP PRN (09:00)
--- NOTE | 2023-01-22 09:20 | Diagnostic Imaging Report ---
INDICATION: Port placement Portable chest 9:00 AM There are postoperative changes from CABG surgery. There is left subclavian dual-chamber pacemaker. Right IJ Port-A-Cath tip projects over the SVC. There is some consolidation of the right upper lobe. There is no pneumothorax. There may be tiny right pleural effusion. IMPRESSION: Right upper lobe consolidation with small right pleural effusion. The upper lobe consolidation has increased compared to prior study from 08/11/2022. Dictated by: Dictated on workstation # [id number]
--- NOTE | 2023-01-22 09:20 | Discharge Inst-Simple/Standard ---
Discharge Inst-Standard Patient Instructions/Follow Up Plan of Care/Instructions/FU: 2 weeks Cuong Ice pack on 15 min and off 30 min for first 48 hours. This reduces swelling and discomfort. Activity as Tolerated: No Discharge Diet: Regular Diet Other Inst to Patient Follow up Appt: Make appointment for 2 week. Instructions: No lifting greater than 10 pounds. No strenuous activity. May shower in 24 hours, no tub bath or soaking. Use incentive spirometer at home as directed. No Smoking Skin/Wound Care: You have special glue over your incision that will fall off on it's own. Ice pack on 15 min and off 30 min for first 48 hours. This reduces swelling and discomfort. Symptoms to Report: Appetite Changes, Extremity Discoloration, Numbness/Tingling, Swelling Increased, Bleeding Excessive, Eyesight Changes, Pain Increased, Urine Color Change, Constipation(Persistent), Fever over 101 degree F, Pain/Pressure in chest, Urinating Difficulty, Cough Up/Vomit Blood, Heart Beat Irreg/Pounding, Pain/Pressure in jaw, Vaginal Bleeding Increase, Cramps in feet or legs, Lightheadedness, Pain/Pressure in shoulder, Diarrhea(Persistent), Memory Changes Suddenly, Questions/Concerns, Weight gain consecutive days, Dizziness/Fainting, Nausea/Vomiting, Shortness of Breath, Weight gain over 2 pounds If questions or concerns contact your physician Or seek help at emergency department. CASSANDRA JAMES DO Jan 22, 2023 09:19
--- NOTE | 2023-01-22 09:22 | Progress Note-Post Operative ---
Post-Operative Progess Note Surgeon (s)/Overlock Hemmer (s) Surgeon CASSANDRA JAMES DO Overlock Hemmer: na Pre-Operative Diagnosis lung cancer Post-Operative Diagnosis same Procedure & Operative Findings Date of Procedure 01/22/23 Procedure Performed/Findings PROCEDURE: Right internal jugular port placement using ultrasound guidance. COMPLICATIONS: None. INDICATIONS: The patient is a 82 year old male with lung cancer. Patient understands the risks and benefits of port placement and wished to proceed with the procedure. Consent was signed on the chart. PROCEDURE: The patient was taken to the operating suite, was prepped and draped in the sterile fashion. A surgical pause was performed. Ultrasound was used to locate the internal jugular vein. Once located anesthetic was infiltrated above it. Using micro-access kit, the right internal vein was accessed watching under u/s guidance. Dark nonpulsatile blood was withdrawn. The wire was inserted. Fluoroscopy assured proper placement. The needle was removed. The micro-access dilator was advanced over the wire and the wire was removed. The regular wire was inserted and fluoroscopy assured proper placement. The wire was then secured. Local anesthetic was used to anesthetize from the neck for tunneling down to the right chest and for pocket creation. A 15 blade scalpel was used to make an incision over the right chest. Cautery was used to dissect down to the pectoral fascia. A pocket was created with blunt dissection. The dilator sheath was then advanced over the wire under fluoroscopy and the dilator and wire were removed. The Groshong catheter was inserted through the sheath and the sheath was then removed. The Groshong wire was removed. The catheter was then tunneled to the right chest pocket. Fluoroscopy was used to cut to length and this was then attached to the port which was then placed within the pocket. The port was then accessed without difficulty. It was then flushed with saline and then heparin. The subcutaneous tissues were then reapproximated using 3-0 Vicryl. The areas were then washed and dried. Skin Affix was placed over incision. The insertion point of the neck Skin Affix was placed over the incision. The patient tolerated the procedure well without complication and was taken to recovery room in stable condition. Chest x-ray is pending. Anesthesia Type mac c local Estimated Blood Loss Estimated blood loss (mL): minimal Specimens/Packing Specimens Removed CASSANDRA Reed DO Jan 22, 2023 09:22
--- NOTE | 2023-01-22 16:28 | Diagnostic Imaging Report ---
INDICATION: Port-A-Cath placement. COMPARISON: None. TOTAL FLUOROSCOPY TIME: 34 seconds. TOTAL NUMBER OF FLUOROSCOPIC IMAGES SAVED: 1. FINDINGS: Fluoroscopic guidance was provided intraoperatively during Port-A-Cath placement. Image provided shows right internal jugular venous approach. Central tip terminates near the cavoatrial junction. Evaluation for pneumothorax is suboptimal given fluoroscopic modality. Please note, interpreting radiologist was not present during the procedure. IMPRESSION: Fluoroscopic guidance provided during Port-A-Cath placement as above. Dictated by: Dictated on workstation # [id number]
== END 2023-01-22 10:15 | disposition home or self-care (01) ==
LOC: SDC 07:02
PROVIDERS: ATTEND Surgery
DX: C34.90 Malignant neoplasm of unspecified part of unspecified bronchus or lung (principal); I87.2 Venous insufficiency (chronic) (peripheral); Z79.01 Long term (current) use of anticoagulants; Z95.0 Presence of cardiac pacemaker; Z95.1 Presence of aortocoronary bypass graft; Z87.891 Personal history of nicotine dependence; G47.33 Obstructive sleep apnea (adult) (pediatric)
CPT/HCPCS: 36561; 71045; 76000; 87081; C1788

== ENCOUNTER → 2023-01-30 | Outpatient (CLI) | payer MEDICARE ==
[2023-01-30 10:06] LABS: INR 2.8 (0.8-1.4); PROTHROMBIN TIME PATIENT 30.8 SEC (12.2-14.7)
== END ==
LOC: LAB 09:21
PROVIDERS: ATTEND Family Medicine
DX: I49.5 Sick sinus syndrome (principal); R79.1 Abnormal coagulation profile
CPT/HCPCS: 36415; 85610

== ENCOUNTER → 2023-01-30 | Outpatient (RCR) | payer MEDICARE ==
[2023-01-09 10:44] LABS: BASOPHILS # (AUTO) 0.1 10^3/uL (0.0-0.1); BASOPHILS % (AUTO) 1 % (0-10); EOSINOPHILS # (AUTO) 0.3 10^3/uL (0.0-0.3); EOSINOPHILS % (AUTO) 3 % (0-10); HEMATOCRIT 44 % (40-54); HEMOGLOBIN 14.3 g/dL (13.3-17.7); LYMPHOCYTES % (AUTO) 22 % (12-44); MEAN CORPUSCULAR HEMOGLOBIN 28 pg (25-34); MEAN CORPUSCULAR HGB CONC 33 g/dL (32-36); MEAN CORPUSCULAR VOLUME 85 fL (80-99); MEAN PLATELET VOLUME 9.5 fL (9.0-12.2); MONOCYTES # (AUTO) 0.7 10^3/uL (0.0-1.0); MONOCYTES % (AUTO) 7 % (0-12); NEUTROPHILS # (AUTO) 6.1 10^3/uL (1.8-7.8); NEUTROPHILS % (AUTO) 66 % (42-75); PLATELET COUNT 214 10^3/uL (130-400); WHITE BLOOD COUNT 9.3 10^3/uL (4.3-11.0)
[2023-01-09 11:01] LABS: ALBUMIN 3.9 GM/DL (3.2-4.5); BILIRUBIN,TOTAL 0.5 MG/DL (0.1-1.0); CALCIUM 9.3 MG/DL (8.5-10.1); CREATININE SERUM 1.03 MG/DL (0.60-1.30); POTASSIUM 4.3 MMOL/L (3.6-5.0); TOTAL PROTEIN 7.4 GM/DL (6.4-8.2)
[2023-01-23 13:46] LABS: BASOPHILS % (AUTO) 0 % (0-10); EOSINOPHILS # (AUTO) 0.2 10^3/uL (0.0-0.3); EOSINOPHILS % (AUTO) 3 % (0-10); HEMATOCRIT 42 % (40-54); HEMOGLOBIN 13.6 g/dL (13.3-17.7); LYMPHOCYTES # (AUTO) 1.1 10^3/uL (1.0-4.0); LYMPHOCYTES % (AUTO) 15 % (12-44); MEAN CORPUSCULAR HEMOGLOBIN 29 pg (25-34); MEAN CORPUSCULAR HGB CONC 33 g/dL (32-36); MEAN CORPUSCULAR VOLUME 88 fL (80-99); MEAN PLATELET VOLUME 9.8 fL (9.0-12.2); MONOCYTES # (AUTO) 0.7 10^3/uL (0.0-1.0); MONOCYTES % (AUTO) 9 % (0-12); NEUTROPHILS # (AUTO) 5.6 10^3/uL (1.8-7.8); NEUTROPHILS % (AUTO) 72 % (42-75); PLATELET COUNT 213 10^3/uL (130-400); WHITE BLOOD COUNT 7.8 10^3/uL (4.3-11.0)
[2023-01-23 14:12] LABS: ALBUMIN 3.7 GM/DL (3.2-4.5); BILIRUBIN,TOTAL 0.5 MG/DL (0.1-1.0); CALCIUM 9.3 MG/DL (8.5-10.1); CREATININE SERUM 1.06 MG/DL (0.60-1.30); TOTAL PROTEIN 7.2 GM/DL (6.4-8.2)
[~2023-01-30] VITALS: Ht 172.7 cm; Wt 82.1 kg
[~2023-01-30] MED LIST changes: +CARBOPLATIN IV SCH; +D5W IV SCH; +FAMOTIDINE INJ 20MG/2ML VIAL IV SCH; +FOSAPREPITANT (CANCER CENTER) 150 MG in NS (IVPB) CANCER CENTER ONLY 150 ML IV SCH; +HEParin (CENTRAL IV FLUSH) 500 UNIT/5 ML SYR IV PRN; +NORMAL SALINE IV SCH; +NS IV 1000 ML (CANCER CTR) IV SCH; +PACLITAXEL IV SCH; +PALONOSETRON HCL 0.25 MG, dexAMETHasone sodium phosphate 10 MG in NS (IVPB) 50 ML 50 ML IV SCH; +diphenhydrAMINE INJ 50 MG/ML VIAL IV PRN
[2023-01-30 09:49] LABS: BASOPHILS % (AUTO) 1 % (0-10); EOSINOPHILS # (AUTO) 0.2 10^3/uL (0.0-0.3); EOSINOPHILS % (AUTO) 2 % (0-10); HEMATOCRIT 41 % (40-54); HEMOGLOBIN 13.5 g/dL (13.3-17.7); LYMPHOCYTES # (AUTO) 0.6 10^3/uL (1.0-4.0); LYMPHOCYTES % (AUTO) 8 % (12-44); MEAN CORPUSCULAR HEMOGLOBIN 29 pg (25-34); MEAN CORPUSCULAR HGB CONC 33 g/dL (32-36); MEAN CORPUSCULAR VOLUME 87 fL (80-99); MEAN PLATELET VOLUME 9.3 fL (9.0-12.2); MONOCYTES # (AUTO) 0.5 10^3/uL (0.0-1.0); MONOCYTES % (AUTO) 6 % (0-12); NEUTROPHILS % (AUTO) 82 % (42-75); PLATELET COUNT 189 10^3/uL (130-400); WHITE BLOOD COUNT 7.3 10^3/uL (4.3-11.0)
[2023-01-30 10:13] LABS: ALBUMIN 3.6 GM/DL (3.2-4.5); BILIRUBIN,TOTAL 0.4 MG/DL (0.1-1.0); CALCIUM 9.2 MG/DL (8.5-10.1); CREATININE SERUM 1.09 MG/DL (0.60-1.30); POTASSIUM 3.8 MMOL/L (3.6-5.0); TOTAL PROTEIN 6.9 GM/DL (6.4-8.2)
[2023-01-30 10:21] VITALS: BP 126/80
== END | disposition home or self-care (01) ==
LOC: ONC 01-09 08:58
PROVIDERS: ATTEND Internal Medicine Hematology & Oncology
DX: Z51.11 Encounter for antineoplastic chemotherapy (principal); Z51.0 Encounter for antineoplastic radiation therapy; C34.90 Malignant neoplasm of unspecified part of unspecified bronchus or lung; E78.2 Mixed hyperlipidemia; I10 Essential (primary) hypertension; E66.9 Obesity, unspecified; Z95.0 Presence of cardiac pacemaker; Z79.01 Long term (current) use of anticoagulants
CPT/HCPCS: 77290; 77295; 77300; 77334 ×2; 80053; 85025; G0463; 36591; 77280; 77336; 77417; 77470; 96367; 96375; 96413; 96415; 96417; 99213; 99214

== ENCOUNTER → 2023-02-05 | Outpatient (CLI) | payer MEDICARE ==
[~2023-02-05] MED LIST changes: -CARBOPLATIN IV SCH; -D5W IV SCH; -FAMOTIDINE INJ 20MG/2ML VIAL IV SCH; -FOSAPREPITANT (CANCER CENTER) 150 MG in NS (IVPB) CANCER CENTER ONLY 150 ML IV SCH; -HEParin (CENTRAL IV FLUSH) 500 UNIT/5 ML SYR IV PRN; -NORMAL SALINE IV SCH; -NS IV 1000 ML (CANCER CTR) IV SCH; -PACLITAXEL IV SCH; -PALONOSETRON HCL 0.25 MG, dexAMETHasone sodium phosphate 10 MG in NS (IVPB) 50 ML 50 ML IV SCH; -diphenhydrAMINE INJ 50 MG/ML VIAL IV PRN
== END ==
LOC: LAB 09:30
PROVIDERS: ATTEND Family Medicine
DX: I48.4 Atypical atrial flutter (principal); Z79.899 Other long term (current) drug therapy

== ENCOUNTER 2023-02-27 07:35 | Outpatient (RCR) | payer MEDICARE ==
[2023-02-05 09:49] LABS: BASOPHILS % (AUTO) 1 % (0-10); EOSINOPHILS # (AUTO) 0.1 10^3/uL (0.0-0.3); EOSINOPHILS % (AUTO) 3 % (0-10); HEMATOCRIT 42 % (40-54); HEMOGLOBIN 13.8 g/dL (13.3-17.7); LYMPHOCYTES # (AUTO) 0.5 10^3/uL (1.0-4.0); LYMPHOCYTES % (AUTO) 10 % (12-44); MEAN CORPUSCULAR HEMOGLOBIN 29 pg (25-34); MEAN CORPUSCULAR HGB CONC 33 g/dL (32-36); MEAN CORPUSCULAR VOLUME 87 fL (80-99); MEAN PLATELET VOLUME 9.6 fL (9.0-12.2); MONOCYTES # (AUTO) 0.1 10^3/uL (0.0-1.0); MONOCYTES % (AUTO) 2 % (0-12); NEUTROPHILS % (AUTO) 83 % (42-75); PLATELET COUNT 162 10^3/uL (130-400); WHITE BLOOD COUNT 4.9 10^3/uL (4.3-11.0)
[2023-02-12 09:39] LABS: BASOPHILS % (AUTO) 1 % (0-10); EOSINOPHILS # (AUTO) 0.2 10^3/uL (0.0-0.3); EOSINOPHILS % (AUTO) 7 % (0-10); HEMATOCRIT 40 % (40-54); HEMOGLOBIN 13.2 g/dL (13.3-17.7); LYMPHOCYTES # (AUTO) 0.8 10^3/uL (1.0-4.0); LYMPHOCYTES % (AUTO) 34 % (12-44); MEAN CORPUSCULAR HEMOGLOBIN 29 pg (25-34); MEAN CORPUSCULAR HGB CONC 33 g/dL (32-36); MEAN CORPUSCULAR VOLUME 87 fL (80-99); MEAN PLATELET VOLUME 9.2 fL (9.0-12.2); MONOCYTES # (AUTO) 0.6 10^3/uL (0.0-1.0); NEUTROPHILS # (AUTO) 0.7 10^3/uL (1.8-7.8); NEUTROPHILS % (AUTO) 27 % (42-75); PLATELET COUNT 145 10^3/uL (130-400); WHITE BLOOD COUNT 2.5 10^3/uL (4.3-11.0)
[2023-02-12 09:47] LABS: MONOCYTES % (AUTO) 24 % (0-12)
[2023-02-20 09:38] LABS: BASOPHILS # (AUTO) 0.1 10^3/uL (0.0-0.1); BASOPHILS % (AUTO) 1 % (0-10); EOSINOPHILS # (AUTO) 0.2 10^3/uL (0.0-0.3); EOSINOPHILS % (AUTO) 2 % (0-10); HEMATOCRIT 40 % (40-54); LYMPHOCYTES # (AUTO) 0.8 10^3/uL (1.0-4.0); LYMPHOCYTES % (AUTO) 10 % (12-44); MEAN CORPUSCULAR HEMOGLOBIN 29 pg (25-34); MEAN CORPUSCULAR HGB CONC 33 g/dL (32-36); MEAN CORPUSCULAR VOLUME 90 fL (80-99); MEAN PLATELET VOLUME 9.1 fL (9.0-12.2); MONOCYTES # (AUTO) 0.6 10^3/uL (0.0-1.0); MONOCYTES % (AUTO) 7 % (0-12); NEUTROPHILS # (AUTO) 6.8 10^3/uL (1.8-7.8); NEUTROPHILS % (AUTO) 78 % (42-75); PLATELET COUNT 220 10^3/uL (130-400); WHITE BLOOD COUNT 8.8 10^3/uL (4.3-11.0)
[2023-02-20 09:51] LABS: ALBUMIN 3.5 GM/DL (3.2-4.5); BILIRUBIN,TOTAL 0.4 MG/DL (0.1-1.0); CALCIUM 9.4 MG/DL (8.5-10.1); CREATININE SERUM 1.1 MG/DL (0.60-1.30); TOTAL PROTEIN 6.9 GM/DL (6.4-8.2)
[2023-02-20] MEDS: NS IV 1000 ML (CANCER CTR) IV SCH (09:54)
[2023-02-20] MEDS: FOSAPREPITANT (CANCER CENTER) 150 MG in NS (IVPB) CANCER CENTER ONLY 150 ML IV SCH (09:55)
[2023-02-20 10:10] VITALS: BP 96/69
[2023-02-20] MEDS: PALONOSETRON HCL 0.25 MG, dexAMETHasone sodium phosphate 10 MG in NS (IVPB) 50 ML 50 ML IV SCH (10:21)
[2023-02-20] MEDS: NS IV SCH (11:08)
[2023-02-20] MEDS: GEMCITABINE HCL IV SCH (11:08)
[~2023-02-27] VITALS: Ht 172.7 cm; Wt 81.7 kg
[~2023-02-27 07:35] MED LIST changes: +CARBOPLATIN IV SCH; +D5W IV SCH; +HEParin (CENTRAL IV FLUSH) 500 UNIT/5 ML SYR IV PRN; +PEMBROLIZUMAB 200 MG in NS (IVPB) 50 ML 50 ML IV SCH
[2023-02-27 14:37] LABS: BASOPHILS % (AUTO) 1 % (0-10); MEAN PLATELET VOLUME 8.6 fL (9.0-12.2); NEUTROPHILS % (AUTO) 80 % (42-75)
[2023-02-27 14:39] LABS: EOSINOPHILS % (AUTO) 1 % (0-10); HEMATOCRIT 31 % (40-54); HEMOGLOBIN 10.3 g/dL (13.3-17.7); LYMPHOCYTES # (AUTO) 0.5 10^3/uL (1.0-4.0); LYMPHOCYTES % (AUTO) 13 % (12-44); MEAN CORPUSCULAR HEMOGLOBIN 29 pg (25-34); MEAN CORPUSCULAR HGB CONC 34 g/dL (32-36); MEAN CORPUSCULAR VOLUME 87 fL (80-99); MONOCYTES # (AUTO) 0.2 10^3/uL (0.0-1.0); MONOCYTES % (AUTO) 5 % (0-12); NEUTROPHILS # (AUTO) 3.3 10^3/uL (1.8-7.8); PLATELET COUNT 130 10^3/uL (130-400); WHITE BLOOD COUNT 4.1 10^3/uL (4.3-11.0)
[2023-02-27] MEDS: FOSAPREPITANT (CANCER CENTER) 150 MG in NS (IVPB) CANCER CENTER ONLY 150 ML IV SCH (14:43)
[2023-02-27] MEDS: NS IV 1000 ML (CANCER CTR) IV SCH (14:44)
[2023-02-27 14:51] LABS: ALBUMIN 3.4 GM/DL (3.2-4.5)
[2023-02-27 14:52] LABS: POTASSIUM 3.9 MMOL/L (3.6-5.0)
[2023-02-27 14:53] LABS: CALCIUM 9.3 MG/DL (8.5-10.1)
[2023-02-27 14:54] LABS: TOTAL PROTEIN 6.8 GM/DL (6.4-8.2)
[2023-02-27 14:56] LABS: BILIRUBIN,TOTAL 0.8 MG/DL (0.1-1.0)
[2023-02-27 14:58] LABS: CREATININE SERUM 0.87 MG/DL (0.60-1.30)
[2023-02-27] MEDS: PALONOSETRON HCL 0.25 MG, dexAMETHasone sodium phosphate 10 MG in NS (IVPB) 50 ML 50 ML IV SCH (15:03)
[2023-02-27] MEDS: NS IV SCH (15:14)
[2023-02-27] MEDS: GEMCITABINE HCL IV SCH (15:14)
== END 2023-03-01 | disposition home or self-care (01) ==
LOC: ONC 07:35
PROVIDERS: ATTEND Internal Medicine Hematology & Oncology
DX: Z51.11 Encounter for antineoplastic chemotherapy (principal); C34.90 Malignant neoplasm of unspecified part of unspecified bronchus or lung; E78.2 Mixed hyperlipidemia; I10 Essential (primary) hypertension; E66.9 Obesity, unspecified; Z95.0 Presence of cardiac pacemaker; Z79.01 Long term (current) use of anticoagulants
CPT/HCPCS: 36415; 36591; 80053; 84443; 85025; 96367; 96375; 96413; 96417; 99214

== ENCOUNTER → 2023-02-27 | Outpatient (CLI) | payer MEDICARE ==
--- NOTE | 2023-02-27 14:30 | Diagnostic Imaging Report ---
CLINICAL INDICATION: Patient with lung cancer. EXAM: Chest x-ray, PA and lateral views. COMPARISONS: Chest x-ray dated 01/22/2023. FINDINGS: There is interval development of a moderate-sized right pneumothorax and a small right pleural effusion. The pneumothorax is roughly 40%. There is no mediastinal shifting. There is patchy consolidation involving the collapsed right lung region. There appears to be scarring and expansion of the upper aspect of the right upper lung field. There are mild airspace opacities involving the left lung base which may represent atelectasis versus infiltrates. Pulmonary vasculature and cardiac silhouette are within normal limits. Cardiac pacemaker seen overlying the left chest with 2 leads projecting over the heart. There are postop change to the chest consistent with CABG again seen. Infusaport is seen overlying the right chest in stable position. There are degenerative spurs involving the thoracic spine. IMPRESSION: 1: There is interval development of a moderate-sized right hydropneumothorax. There is no mediastinal shift. There are patchy areas of consolidation involving the collapsed right lung. 2: There is mild left basilar atelectasis versus infiltrates. The results of this report were discussed with Dr. Alexi Del Rio via the telephone on 02/27/2023 at 1425 hours. Dictated by: Dictated on workstation # [id number]
== END ==
LOC: RAD 13:27
PROVIDERS: ATTEND Internal Medicine Hematology & Oncology
DX: J94.8 Other specified pleural conditions (principal); C34.90 Malignant neoplasm of unspecified part of unspecified bronchus or lung
CPT/HCPCS: 71046; G0463; 99214